=== PATIENT | female | born 1935 | race Caucasian/White ===

== ENCOUNTER → 2016-07-04 | Outpatient (CLI) | payer MEDICARE, OTHER ==
[~2016-07-04] MED LIST: ALEN70TA47 PO; ASCO500T20 PO; ASP81TEC PO; CHOL10002 PO; CLD600T PO; CYAN100053 IJ; DCS100C PO; DENO60DI SQ; ESTR0.3T PO; NAPR1TAB21 PO; NAPR500T3 PO; OXYC-190 PO; OXYC10TA7 PO; OXYC20TA3 PO; PANT40TA3 PO; PNT40TEC PO; POLY119P PO; SIMV40TA4 PO
--- NOTE | 2016-07-04 12:57 | Diagnostic Imaging Report ---
INDICATION: Left shoulder pain. EXAM: AP, oblique, and transscapular views of the left shoulder are obtained. FINDINGS: There is no fracture or acute bony abnormality seen. There is marked degenerative changes of the glenohumeral joint. There is degenerative change of the AC joint. There is superior subluxation of the humeral head relative to the glenoid, with minimal distance between the acromion and humeral head. 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 IMPRESSION: Extensive chronic changes, as above. No acute fracture or dislocation. Report given to (Maricel) at 12:56 p.m. 07/04/2016/cb Dictated by: Dictated on workstation # [id number]
== END ==
LOC: RAD 12:03
PROVIDERS: ATTEND Nurse Practitioner Family
DX: M25.512 Pain in left shoulder (principal)
CPT/HCPCS: 73030

== ENCOUNTER → 2016-07-07 | Outpatient (CLI) | payer MEDICARE, OTHER ==
--- NOTE | 2016-07-07 11:20 | Diagnostic Imaging Report ---
INDICATION: Left arm swelling Left arm venous Doppler study performed in the routine fashion with color Doppler and waveform analysis. Left internal jugular vein, left subclavian vein, and left axillary vein are patent and compressible. The left brachial and basilic vein and cephalic vein are patent. The visualized portions of the radial and ulnar veins are patent. There is a fluid collection anterior to the shoulder measuring about 5.2 x 3.0 x 3.0 cm. This collection is nonspecific. This could be aspirated under ultrasound guidance if clinically warranted for diagnostic purposes. IMPRESSION: No evidence of deep vein thrombosis in the major veins of the left upper extremity. There is a fluid collection anterior to the shoulder joint as above. This could be aspirated under ultrasound guidance for diagnostic purposes if clinically warranted. Dictated by: Dictated on workstation # [id number]
== END ==
LOC: RAD 09:55
PROVIDERS: ATTEND Nurse Practitioner Family
DX: R22.32 Localized swelling, mass and lump, left upper limb (principal); Z86.718 Personal history of other venous thrombosis and embolism

== ENCOUNTER 2016-07-28 08:18 | Emergency (ER) | payer MEDICARE, OTHER ==
[~2016-07-28] VITALS: Ht 167.6 cm; Wt 65.8 kg
[2016-07-28] MEDS ORDERED: OXYC30TA80 PO (08:47)
[2016-07-28 09:06] LABS: BASOPHILS % (AUTO) 1 % (0-10); EOSINOPHILS % (AUTO) 0 % (0-10); LYMPHOCYTES # (AUTO) 1.1 X 10^3 (1.0-4.0); LYMPHOCYTES % (AUTO) 13 % (12-44); MEAN CORPUSCULAR HEMOGLOBIN 29 PG (25-34); MEAN CORPUSCULAR HGB CONC 32 G/DL (32-36); MEAN CORPUSCULAR VOLUME 91 FL (80-99); MEAN PLATELET VOLUME 8.6 FL (7.4-10.4); MONOCYTES # (AUTO) 0.7 X 10^3 (0.0-1.0); MONOCYTES % (AUTO) 9 % (0-12); NEUTROPHILS # (AUTO) 6.6 X 10^3 (1.8-7.8); NEUTROPHILS % (AUTO) 78 % (42-75); PLATELET COUNT 398 10^3/uL (130-400); RED BLOOD COUNT 3.56 10^6/uL (4.35-5.85); WHITE BLOOD COUNT 8.4 10^3/uL (4.3-11.0)
[2016-07-28 09:17] LABS: INR 0.9 (0.8-1.4); PROTHROMBIN TIME PATIENT 12.2 SEC (12.2-14.7)
[2016-07-28 09:28] LABS: ALANINE AMINOTRANSFERASE 13 U/L (0-55); ALBUMIN 2.8 G/DL (3.2-4.5); ANION GAP 9 MMOL/L (5-14); ASPARTATE AMINO TRANSFERASE 19 U/L (5-34); BILIRUBIN,TOTAL 0.3 MG/DL (0.1-1.0); BLOOD UREA NITROGEN 19 MG/DL (7-18); BUN/CREATININE RATIO 21; CALCIUM 8.6 MG/DL (8.5-10.1); CARBON DIOXIDE 28 MMOL/L (21-32); CHLORIDE 99 MMOL/L (98-107); CREATININE SERUM 0.89 MG/DL (0.60-1.30); GFR ESTIMATED > 60; GLUCOSE 112 MG/DL (70-105); MAGNESIUM 1.6 MG/DL (1.8-2.4); SODIUM 136 MMOL/L (135-145); TOTAL PROTEIN 5.8 G/DL (6.4-8.2)
[2016-07-28] MEDS ORDERED: NS IV 1000 ML 1,000 ML IV ONE (09:51)
--- NOTE | 2016-07-28 10:14 | ED General ---
General Chief Complaint: General Problems/Pain Stated Complaint: WEAKNESS, DIZZINESS, BODY ACHES Nursing Triage Note: TO ROOM 05 WITH COMPLAINTS OF CHRONIC GENERALIZED WEAKNESS, DIZZINESS, AND OVERALL PAIN THAT HAS BECAME WORSE OVER NIGHT. STATES SHE HAS SEEN DR SILVA MULTIPLE TIMES FOR THIS AND HAS BEEN TOLD IT IS RELATED FIBROMYALGIA AND OSTEO ARTHRITIS. PT HAS A BRUISE ON LEFT SHOULDER SHE WANTS LOOKED AT THAT HAS BEEN THERE FOR A COUPLE OF DAYS. PT IS WEARING A SOFT NECK BRACE DUE TO CHRONIC CERVICAL ISSUES. Nursing Sepsis Screen: No Definite Risk Source of Information: Patient, Family Exam Limitations: No Limitations History of Present Illness Time Seen by Provider: 08:38 Initial Comments This 80 year old woman presents to the ER accompanied by her daughter with complaints of worsening generalized weakness and dizziness upon standing. Symptoms have been present for months but have been worse over the last couple of days. She reports feeling lightheaded upon rising every morning. Symptoms seemed to improve as the day goes on. She also complains of significant generalized pain throughout the body despite taking regular narcotics. She also has problems with chronic cervical pain and wears a soft collar continuously. She states she needs cervical surgery but is not a good candidate. She has seen Dr. Blancas in [place] for neurosurgical evaluation. Patient feels she is at risk for falls even while using a walker because of these issues. Patient has areas of ecchymosis behind the left elbow and behind the right knee without good explanation about how they may have developed. Allergies and Home Medications Allergies Coded Allergies: Penicillins (Verified Allergy, Unknown, 08/11/12) Sulfa (Sulfonamide Antibiotics) (Unverified Allergy, Unknown, 08/11/12) Home Medications Ascorbic Acid 500 Mg Tablet, 500 MG PO DAILY, (Reported) Aspirin 81 Mg Tabec, 81 MG PO HS, (Reported) Calcium/Vitamin D 600 Mg Tab, 600 MG PO BID, (Reported) Cholecalciferol 1,000 Unit Tab, 1,000 UNIT PO BID, (Reported) Cyanocobalamin 1,000 Mcg/Ml Vial, 1,000 MCG IJ ONCE MONTHLY, (Reported) Denosumab 60 Mg/1 Ml Disp.syrin, Unknown Dose SQ MONTHLY, (Reported) NEXT INJECTION DUE IN JANUARY Docusate Sodium 100 Mg Capsule, 100 MG PO BID, (Reported) Naproxen 500 Mg Tablet, 250 MG PO HS, (Reported) TAKES 1/2 OF A (500 MG) TABLET Naproxen 500 Mg Tablet, 500 MG PO DAILY, (Reported) Nitrofurantoin Monohyd/M-Cryst 100 Mg Capsule, 1 TAB PO BID, #14 Prescribed by: KIKO BAEZ on 07/28/16 1318 Oxycodone HCl 10 Mg Tablet, 10 MG PO Q6H PRN for PAIN, (Reported) ALTERNATING WITH OXYCODONE 20 MG EVERY 3 HOURS Oxycodone HCl 30 Mg Tablet, 30 MG PO QID, (Reported) Pantoprazole Sodium 40 Mg Tablet.dr, 40 MG PO DAILY, (Reported) Constitutional: see HPI EENTM: no symptoms reported Respiratory: no symptoms reported Cardiovascular: no symptoms reported Gastrointestinal: other (chronic abdominal discomfort, unchanged) Genitourinary: no symptoms reported : No Musculoskeletal: see HPI Skin: no symptoms reported Psychiatric/Neurological: See HPI Hematologic/Lymphatic: See HPI Immunological/Allergic: no symptoms reported Past Cfafwmz-Cccxoc-Faejyz Hx Patient Social History Alcohol Use: Occasionally Uses Recreational Drug Use: No Smoking Status: Former Smoker Type Used: Cigarettes Former Smoker/When Quit: Aug 11, 1949 Recent Foreign Travel: No Contact w/Someone Who Travel: No Recent Infectious Disease Expo: No Recent Hopitalizations: No Immunizations Up To Date Tetanus Booster (TDap): Unknown PED Vaccines UTD: Yes Date of Pneumonia Vaccine: Mar 02, 2014 Date of Influenza Vaccine: Nov 26, 2015 Seasonal Allergies Seasonal Allergies: No Surgeries HX Surgeries: Yes (6 back (rods) and 2 total knees, 4 alt. 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 Genitourinary Hx Genitourinary Disorders: No Gastrointestinal Hx Gastrointestinal Disorders: Yes (irritable bowel syndrome) Gastrointestinal Disorders: Gastroesophageal Reflux, Obstructive Bowel ( partial small bowel obstruction), Irritable Bowel Musculoskeletal Hx Musculoskeletal Disorders: Yes (many back and knee surgeries, osteo arthritis) Musculoskeletal Disorders: Degenerate Disk Disease, Arthritis, Fibromyalgia, Chronic Back Pain Endocrine Hx Endocrine Disorders: No HEENT HX ENT Disorders: Yes (cataracts removed) HEENT Disorders: Cataract Loss of Vision: Bilateral Hearing Impairment: Denies Cancer Hx Cancer: No Psychosocial Hx Psychiatric Problems: No Integumentary HX Skin/Integumentary Disorder: No Blood Transfusions Hx Blood Disorders: Yes (hx of anemia) Adverse Reaction to a Blood Tr: No Family Medical History Significant Family History: Heart Disease, Hypertension Physical Exam Vital Signs Vital Sign - Last 12Hours 07/28/16 08:30 Temp 98.7 Pulse 99 Resp 16 B/P (MAP) 122/76 Pulse Ox 97 Capillary Refill : Less Than 3 Seconds General Appearance: No Apparent Distress, WD/WN HEENT: PERRL/EOMI, Normal ENT Inspection Neck: Normal Inspection, No Carotid Bruit, Other (soft collar in place) Respiratory: Lungs Clear, Normal Breath Sounds, No Accessory Muscle Use, No Respiratory Distress Cardiovascular: Regular Rate, Rhythm, No Edema, No Murmur Gastrointestinal: Normal Bowel Sounds, Soft, Tenderness (minimal central abdominal tenderness) Extremity: Normal Inspection, No Pedal Edema Neurologic/Psychiatric: Alert, Oriented x3, No Motor/Sensory Deficits, Normal Mood/Affect, tassel snipper II-XII Norm as Tested Skin: Normal Color, Warm/Dry Progress/Results/Core Measures Results/Orders Lab Results Laboratory Tests Test 07/28/16 08:56 07/28/16 11:22 Range/Units White Blood Count 8.4 4.3-11.0 10^3/uL Red Blood Count 3.56 L 4.35-5.85 10^6/uL Hemoglobin 10.3 L 11.5-16.0 G/DL Hematocrit 32 L 35-52 % Mean Corpuscular Volume 91 80-99 FL Mean Corpuscular Hemoglobin 29 25-34 PG Mean Corpuscular Hemoglobin Concent 32 32-36 G/DL Red Cell Distribution Width 16.0 H 10.0-14.5 % Platelet Count 398 130-400 10^3/uL Mean Platelet Volume 8.6 7.4-10.4 FL Neutrophils (%) (Auto) 78 H 42-75 % Lymphocytes (%) (Auto) 13 12-44 % Monocytes (%) (Auto) 9 0-12 % Eosinophils (%) (Auto) 0 0-10 % Basophils (%) (Auto) 1 0-10 % Neutrophils # (Auto) 6.6 1.8-7.8 X 10^3 Lymphocytes # (Auto) 1.1 1.0-4.0 X 10^3 Monocytes # (Auto) 0.7 0.0-1.0 X 10^3 Eosinophils # (Auto) 0.0 0.0-0.3 10^3/uL Basophils # (Auto) 0.0 0.0-0.1 10^3/uL Prothrombin Time 12.2 12.2-14.7 SEC INR Comment 0.9 0.8-1.4 Activated Partial Thromboplast Time 28 24-35 SEC Sodium Level 136 135-145 MMOL/L Potassium Level 4.0 3.6-5.0 MMOL/L Chloride Level 99 98-107 MMOL/L Carbon Dioxide Level 28 21-32 MMOL/L Anion Gap 9 5-14 MMOL/L Blood Urea Nitrogen 19 H 7-18 MG/DL Creatinine 0.89 0.60-1.30 MG/DL Estimat Glomerular Filtration Rate > 60 BUN/Creatinine Ratio 21 Glucose Level 112 H 70-105 MG/DL Calcium Level 8.6 8.5-10.1 MG/DL Magnesium Level 1.6 L 1.8-2.4 MG/DL Total Bilirubin 0.3 0.1-1.0 MG/DL Aspartate Amino Transf (AST/SGOT) 19 5-34 U/L Alanine Aminotransferase (ALT/SGPT) 13 0-55 U/L Alkaline Phosphatase 61 40-136 U/L Total Creatine Kinase 24 L 29-168 U/L Total Protein 5.8 L 6.4-8.2 G/DL Albumin 2.8 L 3.2-4.5 G/DL TSH [place] Testing 2.57 0.35-4.94 UIU/ML Urine Color YELLOW Urine Clarity CLEAR Urine pH 5 5-9 Urine Specific [place] 1.020 1.016-1.022 Urine Protein 1+ H NEGATIVE Urine Glucose (UA) NEGATIVE NEGATIVE Urine Ketones 1+ H NEGATIVE Urine Nitrite NEGATIVE NEGATIVE Urine Bilirubin NEGATIVE NEGATIVE Urine Urobilinogen 1 NORMAL MG/DL Urine Leukocyte Esterase 1+ H NEGATIVE Urine RBC (Auto) NEGATIVE NEGATIVE Urine RBC NONE /HPF Urine WBC 5-10 H /HPF Urine Squamous Epithelial Cells NONE /HPF Urine Crystals NONE /LPF Urine Bacteria MODERATE H /HPF Urine Casts NONE /LPF Urine Mucus LARGE H /LPF Urine Culture Indicated YES Micro Results Microbiology 07/28/16 Urine Culture - Preliminary, Resulted My Orders Orders - KIKO FLORES MD Cbc With Automated Diff (07/28/16 08:38) Comprehensive Metabolic Panel (07/28/16 08:38) Magnesium (07/28/16 08:38) Ua Culture If Indicated (07/28/16 08:38) Saline Lock/Iv-Start (07/28/16 08:38) Protime With Inr (07/28/16 08:52) Partial Thromboplastin Time (07/28/16 08:52) Thyroid Analyzer (07/28/16 08:52) Creatine Kinase (07/28/16 09:49) Ns Iv 1000 Ml (Sodium Chloride 0.9%) (07/28/16 09:51) General/Regular (07/28/16 Breakfast) Urine Culture (07/28/16 11:22) Nitrofurantoin Capsule,Macro (Macrobid C (07/28/16 13:15) Medications Given in ED Vital Signs/I&O Blood Pressure Mean: 91 Progress Note : Progress Note Orthostatic blood pressures during my evaluation were as follows: Lying 120/70, heart rate 89 Sitting 147/90, heart rate 92 Standing 104/74, heart rate 116 Patient had significant orthostatic response. A liter of IV fluids was administered. Patient did report improvement in symptoms after that. Labs were relatively unremarkable. UA demonstrated evidence of urinary tract infection. Patient believes she is presently on an antibiotic for bladder infection but is uncertain of which antibiotic it is. She reports it was given to her as a sample from Dr. Silva's office. I suspect her symptoms are, at least in part, related to UTI and hypovolemia. Patient does admit she does not drink clear liquids well. I advised follow-up with Dr. Silva and discussion about carotid artery ultrasonography if increased hydration and treatment of UTI do not improve her symptoms. Patient was given her first dose of Macrobid in the ER. Departure Impression Impression: Primary Impression: Urinary tract infection Qualified Codes: N39.0 - Urinary tract infection, site not specified Additional Impressions: Orthostatic hypotension Hypovolemia Dizziness Generalized weakness Disposition: 01 HOME, SELF-CARE Condition: Improved Departure-Patient Inst. Decision time for Depature: 13:15 Referrals: WOODY SILVA MD (PCP/Family) Primary Care Physician Patient Instructions: Urinary Tract Infection, Adult (DC) Add. Discharge Instructions: Increase your fluid intake by drinking plenty of clear liquids. Complete your antibiotic as prescribed. Follow-up with Dr. Silva in 2 or 3 days. Have her review your urine culture to ensure you are taking an antibiotic appropriate for your bladder infection. Please be aware that your antibiotic may cause your urine to have an orange-pancho or reddish color. If increased hydration and treatment of bladder infection do not improve your dizziness, discuss obtaining a carotid artery ultrasound with Dr. Silva. Also consider discussing enrollment in physical therapy to maintain strength and coordination. Continue to use your walker when ambulating for safety. Return to the ER if symptoms worsen. All discharge instructions reviewed with patient and/or family. Voiced understanding. Scripts Nitrofurantoin Monohyd/M-Cryst (Macrobid 100 mg Capsule) 100 Mg Capsule 1 TAB PO BID, #14 CAP Prov: KIKO FLORES MD 07/28/16 Copy Copies To 1: WOODY SILVA MD, JOSHUA T MD July 28, 2016 10:14
[2016-07-28 11:30] LABS: BILIRUBIN,URINE NEGATIVE (NEGATIVE); KETONES,URINE 1+ (NEGATIVE); LEUKOCYTE ESTERASE ,URINE 1+ (NEGATIVE); NITRITE,URINE NEGATIVE (NEGATIVE); PH,URINE 5 (5-9); PROTEIN,URINE 1+ (NEGATIVE); UROBILINOGEN,URINE 1 MG/DL (NORMAL)
[2016-07-28] MEDS ORDERED: NITROFURANTOIN 100 MG (MACROBID) CAPSULE PO ONE (13:15)
[2016-07-28] MEDS ORDERED: NITR-65 PO (13:18)
[2016-07-28 13:27] VITALS: BP 141/72
== END 2016-07-28 13:27 | disposition home or self-care (01) ==
LOC: EDUNIT# 08:18 → ER 08:19
DX: N39.0 Urinary tract infection, site not specified (principal); I95.1 Orthostatic hypotension; E86.9 Volume depletion, unspecified; R42 Dizziness and giddiness; R53.1 Weakness; Z79.82 Long term (current) use of aspirin; Z79.899 Other long term (current) drug therapy; Z79.891 Long term (current) use of opiate analgesic; Z87.891 Personal history of nicotine dependence
CPT/HCPCS: 36415; 80053; 81000; 82550; 83735; 84443; 85025; 85610; 85730; 87088

== ENCOUNTER → 2016-08-18 | Outpatient (CLI) | payer MEDICARE, OTHER ==
[~2016-08-18] VITALS: Ht 167.6 cm; Wt 65.8 kg
[~2016-08-18] MED LIST changes: +DENOSUMAB 60 MG/1 ML (PROLIA) SQ ONE; +NITR-65 PO; +OXYC30TA80 PO
[2016-08-18 13:30] VITALS: BP 135/82
== END ==
LOC: SDC 13:02
PROVIDERS: ATTEND Family Medicine
DX: M81.0 Age-related osteoporosis without current pathological fracture (principal)
CPT/HCPCS: 96372

== ENCOUNTER 2016-09-05 12:39 | Outpatient (RCR) | payer MEDICARE, OTHER ==
[2016-08-27] VITALS (7 sets, daily range): BP systolic 134–167; BP diastolic 70–84
[2016-08-27] MEDS: diphenhydrAMINE 50 MG/ML INJ (BENADRYL) IVP SCH (14:34)
[2016-08-27] MEDS: ACETAMINOPHEN 325 MG TABLET/CAPLET (TYLENOL) PO SCH (14:35)
[2016-08-29] MEDS: diphenhydrAMINE 50 MG/ML INJ (BENADRYL) IVP SCH (13:08)
[2016-08-29] MEDS: ACETAMINOPHEN 325 MG TABLET/CAPLET (TYLENOL) PO SCH (13:08)
[2016-08-29] MEDS: IRON SUCROSE 250 MG/NS 100 ML IVPB IV SCH ×2 (13:19)
[2016-08-29 13:53] VITALS: BP 147/87
[2016-09-01] MEDS: ACETAMINOPHEN 325 MG TABLET/CAPLET (TYLENOL) PO SCH (13:20)
[2016-09-01] MEDS: diphenhydrAMINE 50 MG/ML INJ (BENADRYL) IVP SCH (13:34)
[2016-09-01] MEDS: IRON SUCROSE 250 MG/NS 100 ML IVPB IV SCH ×2 (13:35)
[2016-09-01 14:19] VITALS: BP 148/77
[2016-09-03 12:45] VITALS: BP 127/70
[2016-09-03] MEDS: diphenhydrAMINE 50 MG/ML INJ (BENADRYL) IVP SCH (13:07)
[2016-09-03] MEDS: IRON SUCROSE 250 MG/NS 100 ML IVPB IV SCH ×2 (13:07)
[2016-09-03] MEDS: ACETAMINOPHEN 325 MG TABLET/CAPLET (TYLENOL) PO SCH (13:07)
[~2016-09-05] VITALS: Ht 167.6 cm; Wt 65.8 kg
[~2016-09-05 12:39] MED LIST changes: -DENOSUMAB 60 MG/1 ML (PROLIA) SQ ONE; +IRON SUCROSE INJECTION 125 MG in NS (IVPB) 100 ML IV NR; +NS IV 500 ML 500 ML ONE
[2016-09-05] MEDS: ACETAMINOPHEN 325 MG TABLET/CAPLET (TYLENOL) PO SCH (12:53)
[2016-09-05] MEDS: diphenhydrAMINE 50 MG/ML INJ (BENADRYL) IVP SCH (13:05)
[2016-09-05] MEDS: IRON SUCROSE 250 MG/NS 100 ML IVPB IV SCH ×2 (13:10)
[2016-09-05 13:48] VITALS: BP 142/84
[2016-09-15] MEDS ORDERED: NF-SOLIF5T PO (00:02)
[2016-09-15] MEDS ORDERED: CYCL5TAB PO (00:02)
[2016-09-15] MEDS ORDERED: PRED10TA22 (00:02)
[2016-09-15] MEDS ORDERED: FURO20TA4 PO (09:27)
[2016-09-15] MEDS ORDERED: POTA10CA43 PO (09:27)
[2016-09-15] MEDS ORDERED: POLY17PO6 PO (09:28)
[2016-09-19] MEDS ORDERED: PANT40TA3 PO (09:10)
[2016-09-19] MEDS ORDERED: SUCR1TAB PO (09:10)
[2016-09-29] MEDS ORDERED: FENT1PAT9 TOP (19:10)
== END 2016-11-25 | disposition home or self-care (01) ==
LOC: SDC 12:39
PROVIDERS: ATTEND Family Medicine
DX: D64.9 Anemia, unspecified (principal)
CPT/HCPCS: 36415; 36430; 86850; 86900; 86901; 86920; 96365; 96374

== ENCOUNTER 2016-09-14 23:51 | Inpatient (IN) | payer MEDICARE, OTHER ==
[~2016-09-14] VITALS: Ht 170.2 cm; Wt 67.3 kg
[~2016-09-14 23:51] MED LIST changes: -IRON SUCROSE INJECTION 125 MG in NS (IVPB) 100 ML IV NR; -NS IV 500 ML 500 ML ONE
[2016-09-15] VITALS (11 sets, daily range): BP systolic 111–138; BP diastolic 54–82
[2016-09-15] MEDS ORDERED: CYCL5TAB PO (00:02)
[2016-09-15] MEDS ORDERED: PRED10TA22 (00:02)
[2016-09-15] MEDS ORDERED: NF-SOLIF5T PO (00:02)
[2016-09-15 00:38] LABS: BASOPHILS % (AUTO) 0 % (0-10); EOSINOPHILS % (AUTO) 0 % (0-10); LYMPHOCYTES # (AUTO) 1.5 X 10^3 (1.0-4.0); LYMPHOCYTES % (AUTO) 12 % (12-44); MEAN CORPUSCULAR HEMOGLOBIN 29 PG (25-34); MEAN CORPUSCULAR HGB CONC 33 G/DL (32-36); MEAN CORPUSCULAR VOLUME 89 FL (80-99); MEAN PLATELET VOLUME 8.7 FL (7.4-10.4); MONOCYTES # (AUTO) 1.3 X 10^3 (0.0-1.0); MONOCYTES % (AUTO) 11 % (0-12); NEUTROPHILS # (AUTO) 9.6 X 10^3 (1.8-7.8); NEUTROPHILS % (AUTO) 77 % (42-75); PLATELET COUNT 357 10^3/uL (130-400); WHITE BLOOD COUNT 12.5 10^3/uL (4.3-11.0)
[2016-09-15 00:47] LABS: PROTHROMBIN TIME PATIENT 12.9 SEC (12.2-14.7)
[2016-09-15 00:56] LABS: BILIRUBIN,TOTAL 0.4 MG/DL (0.1-1.0); CALCIUM 8.1 MG/DL (8.5-10.1); CREATININE SERUM 1.08 MG/DL (0.60-1.30); POTASSIUM 4.3 MMOL/L (3.6-5.0); TOTAL PROTEIN 5.6 GM/DL (6.4-8.2)
[2016-09-15] MEDS ORDERED: NS IV 1000 ML 1,000 ML IV ONE (02:36)
[2016-09-15] MEDS ORDERED: KETOROLAC 30 MG/ML VIAL IVP STA (02:36)
[2016-09-15] MEDS ORDERED: ORPHENADRINE 60 MG/2 ML (NORFLEX) AMP IV ONE (02:45)
[2016-09-15] MEDS ORDERED: ORPHENADRINE 60 MG/2 ML (NORFLEX) AMP IV PRN (03:45)
[2016-09-15] MEDS ORDERED: CALCIUM CARBONATE 600 MG (CALCARB) TAB PO ONE (03:45)
[2016-09-15] MEDS: NS IV 1000 ML 1,000 ML IV SCH ×3 (04:08→21:25)
[2016-09-15] MEDS: fentaNYL INJECTION 100 MCG/2 ML AMP IV PRN ×6 (04:16→18:03)
--- NOTE | 2016-09-15 05:36 | ED Lower Extremity ---
General Chief Complaint: Lower Extremity Stated Complaint: INTRACTABLE R LEG PAIN; HYPONATREMIA; ANEMIA Nursing Triage Note: SHARP PAIN FROM RIGHT BUTTOCKS RADIATING DOWN RIGHT LEG. PT REPORTS BEING TREATED FOR SCIATICA ET. RECIEVING "SHOTS" THURSDAY FOR SAME PAIN. Nursing Sepsis Screen: No Definite Risk Source: patient History of Present Illness Time seen by provider: 00:10 Initial Comments PT ARRIVES VIA EMS FROM HOME C/O SEVERE RIGHT LEG PAIN AND LEG FEELS HARD AND SWOLLEN--PAIN FROM RIGHT HIP/ BUTTOCKS AREA DOWN TO LOWER LEG ALSO HAS MILDER SYMPTOMS NO THE LEFT PT STATES SHE CANNOT WALK DUE TO SEVERE PAIN HAS NOT TAKEN ANYTHING FOR PAIN NO KNOWN INJURY PT STATES SHE HAS CHRONIC BACK PAIN AND HAS HAD 6 BACK SURGERIES WITH RODS, AND HAS HAD ISSUES WITH RIGHT SIDED SCIATICA. HAD STEROID SHOT IN THE RIGHT HIP/BUTTOCK AREA 1 MONTH AGO, AND ANOTHER ONE Thursday09/12/[address] CARBONE'S OFFICE NO NEW PARESTHESIAS OR MOTOR DEFICITS--PT STATES SHE HAS FIBROMYALGIA AND HER FEET ARE ALWAYS TINGLY, AND THIS IS NO DIFFERENT TODAY NO CHEST PAIN NO SHORTNESS OF BREATH NO PALPITATIONS NO DIZZINESS PT ALSO SAW DR. CARBONE A WEEK AGO FOR ONGOING RIGHT SHOULDER PAIN, AND HAD BLOODY FLUID DRAINED FROM IT. PT WAS GIVEN RX FOR PREDNISONE, AND TOOK THE LAST DOSE TODAY PT ALSO STATES SHE HAD A BLOOD TRANSFUSION A COUPLE OF WEEKS AGO, ALONG WITH AN IRON INFUSION FOR ANEMIA ALSO RECENTLY TREATED FOR UTI, AND HAS HAD MUCH DIFFICULTY SLEEPING DUE TO BEING UP ALL NIGHT URINATING EVERY 15-20 MINUTES PCP: DR. CARBONE Allergies and Home Medications Allergies Coded Allergies: Penicillins (Verified Allergy, Unknown, 08/11/12) Sulfa (Sulfonamide Antibiotics) (Unverified Allergy, Unknown, 08/11/12) Home Medications Ascorbic Acid 500 Mg Tablet, 500 MG PO DAILY, (Reported) Aspirin 81 Mg Tabec, 81 MG PO HS, (Reported) Calcium/Vitamin D 600 Mg Tab, 600 MG PO BID, (Reported) Cholecalciferol 1,000 Unit Tab, 1,000 UNIT PO BID, (Reported) Cyanocobalamin 1,000 Mcg/Ml Vial, 1,000 MCG IJ ONCE MONTHLY, (Reported) Cyclobenzaprine HCl 5 Mg Tablet, #15 (Reported) Denosumab 60 Mg/1 Ml Disp.syrin, Unknown Dose SQ MONTHLY, (Reported) NEXT INJECTION DUE IN JANUARY Docusate Sodium 100 Mg Capsule, 100 MG PO BID, (Reported) Naproxen 500 Mg Tablet, 250 MG PO HS, (Reported) TAKES 1/2 OF A (500 MG) TABLET Naproxen 500 Mg Tablet, 500 MG PO DAILY, (Reported) Nitrofurantoin Monohyd/M-Cryst 100 Mg Capsule, 1 TAB PO BID, #14 Prescribed by: KIKO BAEZ on 07/28/16 1318 Oxycodone HCl 10 Mg Tablet, 10 MG PO Q6H PRN for PAIN, (Reported) ALTERNATING WITH OXYCODONE 20 MG EVERY 3 HOURS Oxycodone HCl 30 Mg Tablet, 30 MG PO QID, (Reported) Pantoprazole Sodium 40 Mg Tablet.dr, 40 MG PO DAILY, (Reported) Prednisone 10 Mg Tab.ds.pk, #21 (Reported) Solifenacin Succinate 5 Mg Tablet, #30 (Reported) Constitutional: no symptoms reported Respiratory: no symptoms reported Cardiovascular: no symptoms reported Gastrointestinal: no symptoms reported Genitourinary: see HPI Musculoskeletal: see HPI Skin: no symptoms reported Psychiatric/Neurological: See HPI Past Ljzqpyf-Llsgql-Vxiule Hx Patient Social History Alcohol Use: Occasionally Uses Recreational Drug Use: No Smoking Status: Former Smoker Type Used: Cigarettes Former Smoker/When Quit: Aug 11, 1949 Recent Foreign Travel: No Contact w/Someone Who Travel: No Recent Infectious Disease Expo: No Recent Hopitalizations: No Physical Abuse Screen: No Sexual Abuse: No Immunizations Up To Date Tetanus Booster (TDap): Unknown PED Vaccines UTD: Yes Date of Pneumonia Vaccine: Mar 02, 2014 Date of Influenza Vaccine: Nov 26, 2015 Seasonal Allergies Seasonal Allergies: No Surgeries HX Surgeries: Yes (RIGHT TOTAL KNEE REPLACEMENT; 6 BACK SURGERIES WITH NOEMY PLACEMENT) Surgeries: Appendectomy, Breast, Eye Surgery, Joint Replacement, Orthopedic Respiratory Hx Respiratory Disorders: No Cardiovascular Hx Cardiac Disorders: Yes Cardiac Disorders: High Cholesterol Neurological Hx Neurological Disorders: Yes Neurological Disorders: Neuropathy, Spinal Cord Injury Reproductive System : No Hx Reproductive Disorders: No HIV/AIDS: No 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 Genitourinary Hx Genitourinary Disorders: Yes Genitourinary Disorders: Bladder Infection Gastrointestinal Hx Gastrointestinal Disorders: Yes (irritable bowel syndrome) Gastrointestinal Disorders: Gastroesophageal Reflux, Obstructive Bowel, Irritable Bowel Musculoskeletal Hx Musculoskeletal Disorders: Yes (many back and knee surgeries, osteo arthritis) Musculoskeletal Disorders: Degenerate Disk Disease, Arthritis, Fibromyalgia, Chronic Back Pain, Fractures Endocrine Hx Endocrine Disorders: No HEENT HX ENT Disorders: Yes (cataracts removed) HEENT Disorders: Cataract Loss of Vision: Denies Hearing Impairment: Hard of Hearing Cancer Hx Cancer: No Psychosocial Hx Psychiatric Problems: No Integumentary HX Skin/Integumentary Disorder: No Blood Transfusions Hx Blood Disorders: Yes (hx of anemia) Hx of Blood Transfusion YES Adverse Reaction to a Blood Tr: No Family Medical History Significant Family History: Heart Disease, Hypertension Physical Exam Vital Signs Vital Sign - Last 12Hours 09/15/16 00:02 Temp 97.7 Pulse 113 Resp 18 B/P (MAP) 96/61 Pulse Ox 100 O2 Delivery Room Air Capillary Refill : Less Than 3 Seconds General Appearance: WD/WN, other (ANXIOUS, HOLDING RIGHT THIGH) Neck: normal inspection Cardiovascular: regular rate, rhythm, no JVD, no murmur Respiratory: normal breath sounds, no respiratory distress, no accessory muscle use Gastrointestinal: non tender, soft Hips: left hip normal inspection, right hip bone tenderness Legs: right leg bone tenderness, right leg soft tissue tenderness, right leg swelling, right leg other (RIGHT THIGH VERY FIRM AND SWOLLEN) Knees: right knee bone tenderness, right knee soft tissue tenderness, bilateral knee other (NO CALF TENDERNESS BILATERALLY. ) Ankles: bilateral ankle other (NO SWELLING ON RIGHT, TRACE TO 1+ SWELLING ON LEFT. ) Feet: bilateral foot normal inspection Neurologic/Tendon: normal sensation, normal motor functions, normal tendon functions Neurologic/Psychiatric: counsel II-XII nml as tested, no motor/sensory deficits, alert, oriented x 3 Skin: normal color, warm/dry Progress/Results/Core Measures Results/Orders Lab Results Laboratory Tests Test 09/15/16 00:31 Range/Units White Blood Count 12.5 H 4.3-11.0 10^3/uL Red Blood Count 3.10 L 4.35-5.85 10^6/uL Hemoglobin 9.1 L 11.5-16.0 G/DL Hematocrit 28 L 35-52 % Mean Corpuscular Volume 89 80-99 FL Mean Corpuscular Hemoglobin 29 25-34 PG Mean Corpuscular Hemoglobin Concent 33 32-36 G/DL Red Cell Distribution Width 17.0 H 10.0-14.5 % Platelet Count 357 130-400 10^3/uL Mean Platelet Volume 8.7 7.4-10.4 FL Neutrophils (%) (Auto) 77 H 42-75 % Lymphocytes (%) (Auto) 12 12-44 % Monocytes (%) (Auto) 11 0-12 % Eosinophils (%) (Auto) 0 0-10 % Basophils (%) (Auto) 0 0-10 % Neutrophils # (Auto) 9.6 H 1.8-7.8 X 10^3 Lymphocytes # (Auto) 1.5 1.0-4.0 X 10^3 Monocytes # (Auto) 1.3 H 0.0-1.0 X 10^3 Eosinophils # (Auto) 0.0 0.0-0.3 10^3/uL Basophils # (Auto) 0.0 0.0-0.1 10^3/uL Prothrombin Time 12.9 12.2-14.7 SEC INR Comment 1.0 0.8-1.4 Activated Partial Thromboplast Time 23 L 24-35 SEC Sodium Level 128 L 135-145 MMOL/L Potassium Level 4.3 3.6-5.0 MMOL/L Chloride Level 92 L 98-107 MMOL/L Carbon Dioxide Level 25 21-32 MMOL/L Anion Gap 11 5-14 MMOL/L Blood Urea Nitrogen 23 H 7-18 MG/DL Creatinine 1.08 0.60-1.30 MG/DL Estimat Glomerular Filtration Rate 49 BUN/Creatinine Ratio 21 Glucose Level 109 H 70-105 MG/DL Calcium Level 8.1 L 8.5-10.1 MG/DL Magnesium Level 1.8 1.8-2.4 MG/DL Total Bilirubin 0.4 0.1-1.0 MG/DL Aspartate Amino Transf (AST/SGOT) 17 5-34 U/L Alanine Aminotransferase (ALT/SGPT) 14 0-55 U/L Alkaline Phosphatase 70 40-136 U/L Total Protein 5.6 L 6.4-8.2 GM/DL Albumin 3.0 L 3.2-4.5 GM/DL My Orders Orders - RAJESH SCHWAB DO Us Venous Lower Ext Rt (09/15/16 00:16) Cbc With Automated Diff (09/15/16 00:16) Comprehensive Metabolic Panel (09/15/16 00:16) Protime With Inr (09/15/16 00:16) Partial Thromboplastin Time (09/15/16 00:16) Femur, Right, 2 Views (09/15/16 01:30) Pelvis (09/15/16 01:30) Knee, Right, 3 Views (09/15/16 01:30) Saline Lock/Iv-Start (09/15/16 02:36) Saline Lock/Iv-Start (09/15/16 02:36) Ns Iv 1000 Ml (Sodium Chloride 0.9%) (09/15/16 02:36) Ketorolac Injection (Toradol Injection) (09/15/16 02:36) Orphenadrine Injection (Norflex Injectio (09/15/16 02:45) Magnesium (09/15/16 02:39) Medications Given in ED Current Medications Medications Dose Ordered Sig/Brittany Route Start Time Stop Time Status Last Admin Dose Admin Orphenadrine Citrate 60 mg ONCE ONCE IV 09/15/16 02:45 09/15/16 02:46 DC 09/15/16 02:46 60 MG Sodium Chloride 1,000 ml @ 0 mls/hr Q0M ONCE IV 09/15/16 02:36 09/15/16 02:38 DC 09/15/16 02:46 0 MLS/HR Vital Signs/I&O Vital Sign - Last 12Hours 09/15/16 00:02 Temp 97.7 Pulse 113 Resp 18 B/P (MAP) 96/61 Pulse Ox 100 O2 Delivery Room Air Blood Pressure Mean: 100 Progress Note : Progress Note STILL WITH SIGNIFICANT PAIN AND DOES NOT FEEL LIKE SHE CAN FUNCTION AT HOME BY HERSELF AT THIS POINT Diagnostic Imaging Comments XRAYS PELVIS/RIGHT FEMUR/RIGHT KNEE--NO ACUTE PROCESS, PENDING RADIOLOGIST REVIEW VENOUS DOPPLER/ULTRASOUND RIGHT LEG--NO DVT, PER [facility] VIA FAX @ [id number] Reviewed: Reviewed by Me Departure Communication Progress Notes [id number]--SPOKE WITH DR. COLLINS, ACCEPTS PT FOR ADMIT Impression Impression: Primary Impression: INTRACTABLE RIGHT LEG PAIN Additional Impressions: Hyponatremia Anemia Disposition: ADMITTED INPATIENT Condition: Improved Decision to Admit Reason: Admit from ER (General) Decision to Admit/Date: Sep 15, 2016 Time/Decision to Admit Time: 02:55 Departure-Patient Inst. Referrals: WOODY CARBONE MD (PCP) Primary Care Physician RAJESH SCHWAB DO Sep 15, 2016 05:35
[2016-09-15] MEDS: MULTIVIT W/MINERALS TAB (THERAGRAN M) PO SCH (06:15)
--- NOTE | 2016-09-15 06:37 | Diagnostic Imaging Report ---
INDICATION: Right leg pain. FINDINGS: AP and lateral views of the right femur are obtained including the lateral view of the right knee. Degenerative changes are noted at the right hip joint with total right knee arthroplasty. There is focal cortical offset involving the lateral femoral condylar remnant which may represent an avulsion fracture. No other fracture or malalignment is seen. IMPRESSION: Possible nondisplaced fracture involving the lateral condylar remnant of the distal femur. Otherwise, no acute abnormality is seen. Dictated by: Dictated on workstation # [id number]
--- NOTE | 2016-09-15 06:40 | Diagnostic Imaging Report ---
INDICATION: Right knee pain. FINDINGS: AP and oblique views of the right knee reveal total knee arthroplasty device to be in good position. There is slight cortical irregularity involving the lateral femoral condyle which may represent nondisplaced fracture. IMPRESSION: Possible nondisplaced fracture involving the lateral femoral condylar remnant. There is no evidence of dislocation. Dictated by: Dictated on workstation # [id number]
--- NOTE | 2016-09-15 06:41 | Diagnostic Imaging Report ---
INDICATION: Pelvic pain. FINDINGS: Single AP view of the pelvis reveals fusion of the lumbar spine with sacral extension. There is degenerative spurring about the hip joints, bilaterally. No lytic or sclerotic lesion is identified. There is no evidence of an acute fracture or orthopedic hardware complication. IMPRESSION: Extensive postoperative changes at the lumbar spine and sacrum. Otherwise, there is no evidence of acute abnormality detected. Dictated by: Dictated on workstation # [id number]
--- NOTE | 2016-09-15 06:45 | Diagnostic Imaging Report ---
PROCEDURE: US right lower extremity venous. TECHNIQUE: Multiple real-time grayscale images were obtained over the right lower extremity in various projections. Additional duplex Doppler and color Doppler images were also obtained. INDICATION: Right leg pain after injury. EXAMINATION: Grayscale and color Doppler evaluation of the deep veins of the right lower extremity were performed with waveform analysis. FINDINGS: Continuous venous flow is present. No intraluminal filling defect is identified. There is normal compressibility and response to augmentation. No abnormal perivascular fluid collection is identified. IMPRESSION: No ultrasound evidence of right lower extremity deep venous thrombosis. Dictated by: Dictated on workstation # [id number]
[2016-09-15] MEDS: KETOROLAC 30 MG/ML VIAL IVP PRN ×2 (08:12→15:01)
--- NOTE | 2016-09-15 08:19 | History & Physicial ---
History of Present Illness History of Present Illness Reason for visit/HPI PT IS AN 81 Y/O FEMALE WHO IS KNOWN TO ME FROM CLINIC. SHE PRESENTED TO THE EMERGENCY DEPARTMENT THIS MORNING WITH SEVERE RIGHT LEG PAIN. SHE REPORTS THAT SHE HAD INJECTIONS ON THURSDAY OF LAST WEEK FOR PAIN IN HER RIGHT LEG - HAS NOT GOTTEN MUCH RELIEF FROM THE INJECTION, BUT THIS MORNING UPON AWAKENING TO GO TO THE RESTROOM SHE HAD SO MUCH PAIN THAT SHE COULD NO LONGER TOLERATE IT AND WAS BROUGHT TO THE HOSPITAL BY HER FAMILY. SHE WAS IN THE OFFICE A WEEK AGO - RECEIVED SHOULDER DRAINAGE DUE TO RIGHT SHOULDER SWELLING - BLOODY DRAINAGE - OF 35ML REMOVED AND STEROID INJECTED INTO THE SHOULDER. SHE FINISHED A ROUND OF ORAL STEROIDS YESTERDAY. Date of Admission Sep 15, 2016 at 02:55 Date Seen by Provider: Sep 15, 2016 Time Seen by Provider: 08:10 I consulted on this patient on 09/15/16 08:10 Attending Physician Woody Silva MD Admitting Physician Woody Silva MD Consult Allergies and Home Medications Allergies Coded Allergies: Penicillins (Verified Allergy, Unknown, 08/11/12) Sulfa (Sulfonamide Antibiotics) (Unverified Allergy, Unknown, 08/11/12) Home Medications Ascorbic Acid 500 Mg Tablet, 500 MG PO DAILY, (Reported) Aspirin 81 Mg Tabec, 81 MG PO HS, (Reported) Calcium/Vitamin D 600 Mg Tab, 600 MG PO BID, (Reported) Cholecalciferol 1,000 Unit Tab, 1,000 UNIT PO BID, (Reported) Cyanocobalamin 1,000 Mcg/Ml Vial, 1,000 MCG IJ ONCE MONTHLY, (Reported) Cyclobenzaprine HCl 5 Mg Tablet, 5 MG PO TID PRN for MUSCLE SPASMS, (Reported) Denosumab 60 Mg/1 Ml Disp.syrin, SQ EVERY 6 MONTHS, (Reported) NEXT INJECTION DUE IN JANUARY Docusate Sodium 100 Mg Capsule, 100 MG PO BID, (Reported) Furosemide 20 Mg Tablet, 20 MG PO DAILY PRN for SWELLING, (Reported) Naproxen 500 Mg Tablet, 250-500 MG PO BID, (Reported) Oxycodone HCl 10 Mg Tablet, 10 MG PO Q6H PRN for BREAKTHROUGH PAIN, (Reported) Oxycodone HCl 30 Mg Tablet, 30 MG PO Q6H PRN for PAIN-SEVERE, (Reported) Pantoprazole Sodium 40 Mg Tablet.dr, 40 MG PO DAILY, (Reported) Polyethylene Glycol 3350 17 Gm Powd.pack, 17 GM PO HS, (Reported) MIXES WITH PRUNE JUICE Potassium Chloride 10 Meq Capsule.er, 10 MEQ PO DAILY PRN for WHEN TAKING FUROSEMIDE, (Reported) Solifenacin Succinate 5 Mg Tablet, 5 MG PO HS, (Reported) Past Rrkjpzd-Eywsvw-Bnrklf Hx Patient Social History Marrital Status: Living Status: LIVES WITH HER DAUGHTER Employed/Student: retired Alcohol Use: Occasionally Uses Recreational Drug Use: No Smoking Status: Former Smoker Former smoker/When Quit: Aug 11, 1949 Type Used: Cigarettes 2nd Hand Smoke Exposure: No Physical Abuse Screen: No Sexual Abuse: No Recent Foreign Travel: No Contact w/other who traveled: No Recent Hopitalizations: No Recent Infectious Disease Expo: No Immunizations Up To Date Tetanus Booster (TDap): Unknown Date of Pneumonia Vaccine: Mar 02, 2014 Date of Influenza Vaccine: Nov 26, 2015 Seasonal Allergies Seasonal Allergies: No Surgeries HX Surgeries: Yes (RIGHT TOTAL KNEE REPLACEMENT; 6 BACK SURGERIES WITH NOEMY PLACEMENT) Surgeries: Appendectomy, Breast, Eye Surgery, Joint Replacement, Orthopedic Respiratory Hx Respiratory Disorders: No Cardiovascular Hx Cardiovascular Disorders: Yes Cardiac Disorders: High Cholesterol Neurological Hx Neurological Disorders: Yes Neurological Disorders: Neuropathy, Spinal Cord Injury Reproductive System : No Hx Reproductive Disorders: No HIV/AIDS: No Female Reproductive Disorders: Denies Genitourinary Hx Genitourinary Disorders: Yes Genitourinary Disorders: Bladder Infection Gastrointestinal Hx Gastrointestinal Disorders: Yes (irritable bowel syndrome) Gastrointestinal Disorders: Gastroesophageal Reflux, Obstructive Bowel, Irritable Bowel Musculoskeletal Hx Musculoskeletal Disorders: Yes (many back and knee surgeries, osteo arthritis) Musculoskeletal Disorders: Degenerate Disk Disease, Arthritis, Fibromyalgia, Chronic Back Pain, Fractures Endocrine Hx Endocrine Disorders: No HEENT HX ENT Disorders: Yes (cataracts removed) HEENT Disorders: Cataract Loss of Vision: Denies Hearing Impairment: Hard of Hearing Cancer Hx Cancer: No Psychosocial Hx Psychiatric Problems: No Integumentary HX Skin/Integumentary Disorder: No Blood Transfusions Hx Blood Disorders: Yes (hx of anemia) Adverse Reaction to a Blood Tr: No Reviewed Nursing Assessment Reviewed/Agree w Nursing PMH: Yes Family Medical History Significant Family History: Heart Disease, Hypertension Constitutional: No chills, No dizziness, No fever, weakness EENTM: No hoarseness, No mouth pain, No throat pain Respiratory: No cough, No dyspnea on exertion, No short of breath Cardiovascular: No chest pain, No edema Gastrointestinal: No abdominal pain, No constipation, No diarrhea Genitourinary: No pain Musculoskeletal: back pain, muscle weakness, other (PAIN LATERAL RIGHT HIP) Skin: No lesions, No rash Psychiatric/Neurological: Weakness Physical Exam Vital Signs Vital Sign - Last 12Hours 09/15/16 00:02 Temp 97.7 Pulse 113 Resp 18 B/P (MAP) 96/61 Pulse Ox 100 O2 Delivery Room Air Capillary Refill : Less Than 3 Seconds General Appearance: No Apparent Distress, WD/WN Eyes: Bilateral Eye EOMI, Bilateral Eye Normal Inspection, Bilateral Eye PERRL HEENT: PERRL/EOMI, Pharynx Normal Respiratory: Chest Non Tender, Lungs Clear, Normal Breath Sounds, No Accessory Muscle Use Cardiovascular: Regular Rate, Rhythm, Other (TRACE EDEMA - LATERAL RIGHT THIGH ) Gastrointestinal: Normal Bowel Sounds, Non Tender, Soft Rectal: Deferred Extremity: Pedal Edema Neurologic/Psychiatric: Alert, Oriented x3, No Motor/Sensory Deficits, Normal Mood/Affect Skin: Warm/Dry Lymphatic: No Adenopathy Assessment/Plan Assessment and Plan BACK PAIN LATERAL RIGHT HIP PAIN SWELLING OF HIP ESOPHAGEAL REFLUX CHRONIC PAIN SYNDROME GENERALIZED WEAKNESS BACK PAIN - RESUME HOME MEDICATIONS - MONITOR SYMPTOMS. LATERAL RIGHT HIP PAIN -SWELLING OF HIP - MONITOR SYMPTOMS - USE VOLTAREN GEL ON HIP ESOPHAGEAL REFLUX - RESTART PPI CHRONIC PAIN SYNDROME - RESTART HOME MEDICATIONS GENERALIZED WEAKNESS - START PHYSICAL THERAPY Problems: Admission Diagnosis BACK PAIN LATERAL RIGHT HIP PAIN SWELLING OF HIP ESOPHAGEAL REFLUX CHRONIC PAIN SYNDROME GENERALIZED WEAKNESS BACK PAIN Clinical Quality Measures DVT/VTE Risk/Contraindication: Risk Factor Score Per Nursin RFS Level Per Nursing on Admit: 4+=Very High WOODY SILVA MD Sep 15, 2016 08:19
[2016-09-15 08:26] LABS: BASOPHILS % (AUTO) 0 % (0-10); EOSINOPHILS % (AUTO) 0 % (0-10); LYMPHOCYTES # (AUTO) 1.7 X 10^3 (1.0-4.0); LYMPHOCYTES % (AUTO) 16 % (12-44); MEAN CORPUSCULAR HEMOGLOBIN 29 PG (25-34); MEAN CORPUSCULAR HGB CONC 32 G/DL (32-36); MEAN CORPUSCULAR VOLUME 90 FL (80-99); MEAN PLATELET VOLUME 8.5 FL (7.4-10.4); MONOCYTES % (AUTO) 10 % (0-12); NEUTROPHILS # (AUTO) 7.9 X 10^3 (1.8-7.8); NEUTROPHILS % (AUTO) 74 % (42-75); PLATELET COUNT 260 10^3/uL (130-400); RED BLOOD COUNT 2.49 10^6/uL (4.35-5.85); RED CELL DISTRIBUTION WIDTH 17.1 % (10.0-14.5); WHITE BLOOD COUNT 10.7 10^3/uL (4.3-11.0)
[2016-09-15 08:45] LABS: ALBUMIN 2.5 GM/DL (3.2-4.5); BILIRUBIN,TOTAL 0.5 MG/DL (0.1-1.0); CALCIUM 7.6 MG/DL (8.5-10.1); CREATININE SERUM 0.94 MG/DL (0.60-1.30); TOTAL PROTEIN 4.5 GM/DL (6.4-8.2)
[2016-09-15] MEDS ORDERED: FURO20TA4 PO (09:27)
[2016-09-15] MEDS ORDERED: POTA10CA43 PO (09:27)
[2016-09-15] MEDS ORDERED: POLY17PO6 PO (09:28)
--- NOTE | 2016-09-15 14:02 | Physical Therapy Evaluation ---
PT Evaluation-General Medical Diagnosis Admission Date Sep 15, 2016 at 02:55 Medical Diagnosis: hyponatremia Onset Date: Sep 15, 2016 Therapy Diagnosis Therapy Diagnosis: debility/weakness Height/Weight Height (Feet): 5 Height (Inches): 7.00 Weight (Pounds): 148 Weight (Ounces): 5.0 Precautions Precautions/Isolations: Fall Prevention, Standard Precautions Weight Bear Status Weight Bearing Restriction: Weight Bearing/Tolerated Location Restriction: LE Bilateral Referral Physician: Ricardo Reason for Referral: Evaluation/Treatment Medical History Pertinent Medical History: Arthritis, HTN, Neuropathy, Smoking Additional Medical History 6 back surgeries (kye placement); right TKR Current History to ED secondary to intractable right LE pain and right shoulder pain with drainage Reviewed History: Yes Social History Home: Multilevel Current Living Status: Other Family Entry Into Home: Level Entry Other Obstacles: has chair lift for stairs Prior/Core FIM Prior Level of Function Functional Noble Measure 0=Not Assessed/NA 4=Minimal Assistance 1=Total Assistance 5=Supervision or Setup 2=Maximal Assistance 6=Modified Noble 3=Moderate Assistance 7=Complete Noble Bed Mobility: 6 Transfers (B,C,W/C) (FIM): 6 Gait: 6 uses FWW PLOF PT Evaluation-Current Subjective Patient reports she is very tired, however, agrees to PT. Pain Numeric Pain Scale: 8 Location: Right, Soft Tissue Location Body Site: Hip (piriformis/gluteal/hamstring region) Pain Description: Ache, Tightness, Sharp Comment: RN issued pain medication Pt/Family Goals decrease right LE pain Objective Patient Orientation: Normal For Age Problem Solving: Good Attachments: IV ROM/Strength ROM Lower Extremities bilateral LE WNL Strenght Lower Extremities right knee flexion/extension 3/5; hip flexion 3-/5; ankle dorsi/plantarflexion 3 -/5 left knee flexion/extension 3/5; hip flexion 3/5; ankle dorsi/plantarflexion 3-/ 5 Integumentary/Posture Integumentary refer to nursing notes Bowel Incontinence: No Bladder Incontinence: No Posture spinal kye (wears back brace due to severe weakness of core/spinal musculature) ; wears cervical collar due to extreme weakness of cervical musculature Neuromuscular (Tone, Coordination, Reflexes) diminished coordination, tone and sensation bilateral LE Sensory Vision: Functional Hearing: Functional Sensation Right Lower Extremit: Impaired Sensation Left Lower Extremity: Impaired Transfers Functional Noble Measure 0=Not Assessed/NA 4=Minimal Assistance 1=Total Assistance 5=Supervision or Setup 2=Maximal Assistance 6=Modified Noble 3=Moderate Assistance 7=Complete [place] Transfers (B, C, W/C) (FIM): 2 Scootin Rollin Supine to/from Sit: 2 Sit to/from Stand: 4 due to extreme weakness and pain, patient requires max assist with bed mobility supine<>sit Gait Mode of Locomotion: Walk Anticipated Mode of Locomotion: Walk Gait (FIM): 1 Distance (FIM): 1=up to 49 ft Distance: 5' Gait Level of Assist: 5 Gait Persons Needed: 1 Gait Assistive Device: FWW Comments/Gait Description slightly unsteady Stairs If not tested on admit;explain did not perform PLOF Balance Sitting Static: Normal Sitting Dynamic: Normal Standing Static: Fair Standing Dynamic: Fair Assessment/Needs 81 y.o. female, will benefit from skilled PT to address functional strength and mobility to improve current LOF and to return to home at maximum LOF. PT to address strength and mobility, as well as, right LE pain as tolerated by patient. Rehab Potential: Good PT Printing Supplies Sales Representative Goals Usp Goals PT Printing Supplies Sales Representative Goals Time Frame: Oct 03, 2016 Transfers (B,C,W/C) (FIM): 6 Gait (FIM): 6 Gait distance (FIM): 3=150 ft Gait Level of Assist: 6 Gait Assistive Device: FWW PT Plan Problem List Problem List: Activity Tolerance, Functional Strength, Balance, Gait, Transfer , Bed Mobility, Other (pain) Treatment/Plan Treatment Plan: Continue Plan of Care Treatment Plan: Bed Mobility, Education, Functional Activity Shamika, Functional Strength, Gait, Safety, Therapeutic Exercise, Transfers Treatment Duration: Oct 03, 2016 Frequency: 6 times per week Estimated Hrs Per Day: .5 hour per day Patient and/or Family Agrees t: Yes Safety Risks/Education Patient Education: Disease Process, Safety Issues Teaching Recipient: Patient Teaching Methods: Discussion Response to Teaching: Verbalize Understanding Discharge Recommendations Therapy D/C Recommendations: Acute Rehab, Home w/ Family Support, Physical Therapy Home Care Time/GCodes Time In: 1310 Time Out: 1335 Total Billed Treatment Time: 25 Total Billed Treatment 1 visit EVLowC 25 min G Codes Necessary: Yes PT/OT Therapy GCodes Therapy Functional Limitation: Physical Therapy Test(s)/Tool used to determine: Level of Assistance Scale Functional Limitation-Current Charge Code: MOBCUR Modifier: CL Functional Limitation-Goal Charge Code: MOBGOAL Modifier: CI JAIMIE GOINS PT Sep 15, 2016 14:02
[2016-09-15] MEDS ORDERED: FUROSEMIDE 20 MG (LASIX) TAB PO PRN (15:30)
[2016-09-15] MEDS ORDERED: NON-FORMULARY MEDICATION 1 EA EA (Oxycodone HCl 30 MG) PO PRN (15:30)
[2016-09-15] MEDS ORDERED: NON-FORMULARY MEDICATION 1 EA EA (Potassium Chloride 10 MEQ) PO PRN (15:30)
[2016-09-15] MEDS ORDERED: NON-FORMULARY MEDICATION 1 EA EA (Cyclobenzaprine HCl 5 MG) PO PRN (15:30)
[2016-09-15] MEDS ORDERED: NS IV 500 ML 500 ML IV SCH (15:50)
[2016-09-15] MEDS ORDERED: KCL 10 MEQ TAB (MICRO K) PO PRN (16:00)
[2016-09-15] MEDS ORDERED: diphenhydrAMINE 50 MG/ML INJ (BENADRYL) IVP PRN (16:00)
[2016-09-15] MEDS ORDERED: FUROSEMIDE 40 MG/4 ML INJ (LASIX) IVP NR (16:00)
[2016-09-15] MEDS ORDERED: ACETAMINOPHEN 325 MG TABLET/CAPLET (TYLENOL) PO PRN (16:00)
[2016-09-15] MEDS ORDERED: CYCLOBENZAPRINE 10 MG (FLEXERIL) TAB PO PRN (16:15)
[2016-09-15 16:57] LABS: BILIRUBIN,URINE NEGATIVE (NEGATIVE); KETONES,URINE NEGATIVE (NEGATIVE); LEUKOCYTE ESTERASE ,URINE 1+ (NEGATIVE); NITRITE,URINE NEGATIVE (NEGATIVE); PH,URINE 5 (5-9); PROTEIN,URINE 1+ (NEGATIVE); UROBILINOGEN,URINE NORMAL (NORMAL)
[2016-09-15] MEDS: CALCIUM CARB + VIT D 600 MG (CALCARB + D) TAB PO SCH (17:15)
[2016-09-15 17:22] LABS: HYALINE CASTS, URINE >50 /LPF; WBC,URINE RARE /HPF
[2016-09-15] MEDS ORDERED: NAPROXEN 250 MG (NAPROSYN) TABLET PO ONE (18:13)
[2016-09-15] MEDS ORDERED: fentaNYL INJECTION 100 MCG/2 ML AMP IVP PRN ×2 (18:15→18:45)
[2016-09-15] MEDS ORDERED: ONDANSETRON 4 MG/2 ML (SDV) Z0FRAN IV PRN (18:45)
[2016-09-15] MEDS ORDERED: NALOXONE 0.4 MG/ML 1 ML (NARCAN) VIAL IV PRN (18:45)
[2016-09-15] MEDS ORDERED: diphenhydrAMINE 50 MG/ML INJ (BENADRYL) IV PRN (18:45)
[2016-09-15] MEDS ORDERED: METOCLOPRAMIDE INJ 10 MG/2 ML (REGLAN) IV PRN (18:45)
[2016-09-15] MEDS: fentaNYL PCA 300 MCG/30 ML VIAL IV PRN (20:32)
[2016-09-15] MEDS: POLYETHYLENE GLYCOL 17 GM (MIRALAX) PACK PO SCH ×2 (20:37→21:26)
[2016-09-15] MEDS ORDERED: NAPROXEN 250 MG (NAPROSYN) TABLET PO SCH (21:00)
[2016-09-15] MEDS ORDERED: SOLIFENACIN 5 MG TAB (VESICARE) NON-FORMULARY PO SCH (21:00)
[2016-09-15] MEDS: DOCUSATE SODIUM 100 MG (COLACE) CAP PO SCH (21:26)
[2016-09-15] MEDS: ASPIRIN E.C. 81 MG (ECOTRIN) TAB PO SCH (21:26)
[2016-09-15] MEDS: VITAMIN D3 1,000 UNITS (CHOLECALCIFEROL) TABLET PO SCH (21:26)
[2016-09-16] VITALS (8 sets, daily range): BP systolic 115–153; BP diastolic 56–86
[2016-09-16] MEDS: fentaNYL PCA 300 MCG/30 ML VIAL IV PRN ×5 (00:46→23:43)
[2016-09-16] MEDS: NS IV 1000 ML 1,000 ML IV SCH ×3 (05:06→21:11)
[2016-09-16] MEDS: MULTIVIT W/MINERALS TAB (THERAGRAN M) PO SCH (06:10)
[2016-09-16] MEDS: PANTOPRAZOLE 40 MG (PROTONIX) TAB PO SCH (06:10)
[2016-09-16] MEDS: NAPROXEN 250 MG (NAPROSYN) TABLET PO SCH ×2 (06:11→16:30)
[2016-09-16] MEDS: CALCIUM CARB + VIT D 600 MG (CALCARB + D) TAB PO SCH ×2 (06:11→16:30)
[2016-09-16] MEDS: TROSPIUM 20 MG (SANCTURA) TAB PO SCH ×2 (06:11→16:30)
[2016-09-16 06:23] LABS: RED BLOOD COUNT 3.28 10^6/uL (4.35-5.85); RED CELL DISTRIBUTION WIDTH 16.3 % (10.0-14.5); WHITE BLOOD COUNT 10.5 10^3/uL (4.3-11.0)
[2016-09-16 06:48] LABS: ALANINE AMINOTRANSFERASE 11 U/L (0-55); ALBUMIN 2.2 GM/DL (3.2-4.5); ANION GAP 6 MMOL/L (5-14); ASPARTATE AMINO TRANSFERASE 15 U/L (5-34); BILIRUBIN,TOTAL 0.7 MG/DL (0.1-1.0); BLOOD UREA NITROGEN 28 MG/DL (7-18); BUN/CREATININE RATIO 38; CALCIUM 7.5 MG/DL (8.5-10.1); CARBON DIOXIDE 24 MMOL/L (21-32); CHLORIDE 102 MMOL/L (98-107); CREATININE SERUM 0.74 MG/DL (0.60-1.30); GFR ESTIMATED > 60; GLUCOSE 86 MG/DL (70-105); POTASSIUM 4.7 MMOL/L (3.6-5.0); SODIUM 132 MMOL/L (135-145); TOTAL PROTEIN 4.2 GM/DL (6.4-8.2)
--- NOTE | 2016-09-16 08:24 | Progress Note (SOAP) ---
Subjective Date Seen by Provider: Sep 16, 2016 Time Seen by Provider: 08:40 Subjective/Events-last exam PT IS AN 81 Y/O FEMALE WHO IS KNOWN TO ME FROM CLINIC. SHE PRESENTED TO THE EMERGENCY DEPARTMENT WITH WEAKNESS, FALLING AT HOME, RIGHT HIP PAIN. HER HGB DROPPED YESTERDAY DOWN TO 7.2, WAS GIVEN 2 UNITS PRBCS WITH HGB UP TO 9.5 TODAY - HEMOCCULT WAS POSITIVE LAST NIGHT. TODAY SHE STATES THAT SHE FEELS FATIGUED, LATERAL RIGHT LEG PAIN - HOWEVER SHE FEELS BETTER TODAY THAN YESTERDAY. Review of Systems General: Fatigue, Malaise HEENT: No Head Aches Pulmonary: No Dyspnea, No Cough Cardiovascular: No: Chest Pain, Palpitations Gastrointestinal: Abdominal Pain, Constipation, No: Nausea Genitourinary: Retention Musculoskeletal: back pain, leg pain, neck pain Neurological: Weakness, No: Confusion Objective Exam Vital Signs Date Time Temp Pulse Resp B/P (MAP) Pulse Ox O2 Delivery O2 Flow Rate FiO2 09/16/16 07:18 100 Room Air 09/16/16 06:55 17 09/16/16 04:00 97.7 72 12 135/63 100 Room Air 09/16/16 02:42 100 Room Air 09/16/16 00:46 18 09/16/16 00:19 97.8 73 18 143/64 95 Room Air 09/16/16 00:00 97.0 77 15 153/69 95 Room Air 09/15/16 22:45 100 Room Air 09/15/16 21:51 96.9 90 14 120/66 Room Air 09/15/16 21:36 96.9 82 15 127/58 100 Room Air 09/15/16 21:10 96.9 82 15 127/58 100 Room Air 09/15/16 21:00 15 09/15/16 20:39 97.5 81 12 129/59 100 Room Air 09/15/16 20:32 20 09/15/16 19:10 100 Room Air 09/15/16 18:15 97.3 82 20 113/60 100 Room Air 09/15/16 18:03 97.7 101 18 117/73 91 Room Air 09/15/16 15:55 97.7 101 18 117/73 91 Room Air 09/15/16 12:51 96.3 77 20 111/54 100 Room Air 09/15/16 09:00 98 Room Air I & O 09/16/16 07:00 Intake Total 2260 ml Output Total 2950 ml Balance -690 ml Capillary Refill : Less Than 3 Seconds General Appearance: No Apparent Distress, WD/WN HEENT: PERRL/EOMI Respiratory: Chest Non Tender, Lungs Clear, Normal Breath Sounds, No Accessory Muscle Use Cardiovascular: Regular Rate, Rhythm, Other ([place] LATERAL RIGHT THIGH) Gastrointestinal: normal bowel sounds, soft, distended Extremity: Normal Capillary Refill, Pedal Edema Neurologic/Psychiatric: Alert, Oriented x3, No Motor/Sensory Deficits, Normal Mood/Affect Skin: Warm/Dry Results Lab Laboratory Tests 09/15/16 16:25: Urine Color YELLOW, Urine Clarity CLEAR, Urine pH 5, Urine Specific [place] 1.015L, Urine Protein 1+H, Urine Glucose (UA) NEGATIVE, Urine Ketones NEGATIVE, Urine Nitrite NEGATIVE, Urine Bilirubin NEGATIVE, Urine Urobilinogen NORMAL, Urine Leukocyte Esterase 1+H, Urine RBC (Auto) NEGATIVE, Urine RBC NONE, Urine WBC RARE, Urine Squamous Epithelial Cells 2-5, Urine Crystals NONE, Urine Bacteria TRACE, Urine Casts PRESENT, Urine Hyaline Casts >50H, Urine Mucus NEGATIVE, Urine Culture Indicated NO 09/16/16 02:26: Stool Occult Blood Immunoassay POSITIVEH 09/16/16 06:15: White Blood Count 10.5, Red Blood Count 3.28L, Hemoglobin 9.5#L, Hematocrit 29L , Mean Corpuscular Volume 89, Mean Corpuscular Hemoglobin 29, Mean Corpuscular Hemoglobin Concent 32, Red Cell Distribution Width 16.3H, Platelet Count 195, Mean Platelet Volume 9.0, Sodium Level 132L, Potassium Level 4.7, Chloride Level 102, Carbon Dioxide Level 24, Anion Gap 6, Blood Urea Nitrogen 28H, Creatinine 0.74, Estimat Glomerular Filtration Rate > 60, BUN/Creatinine Ratio 38, Glucose Level 86, Calcium Level 7.5L, Total Bilirubin 0.7, Aspartate Amino Transf (AST/SGOT) 15, Alanine Aminotransferase (ALT/SGPT) 11, Alkaline Phosphatase 49, Total Protein 4.2L, Albumin 2.2L Assessment/Plan Assessment/Plan Assess & Plan/Chief Complaint BACK PAIN LATERAL RIGHT HIP PAIN SWELLING OF HIP ESOPHAGEAL REFLUX CHRONIC PAIN SYNDROME GENERALIZED WEAKNESS ANEMIA HEMOCCULT POSITIVE STOOL LATERAL CONDYLE FRACTURE ON RIGHT LEG BACK PAIN - RESUMED HOME MEDICATIONS - MONITOR SYMPTOMS. - PAIN UNCONTROLLED - STARTED ON WEAVER NEEDLE LOOM PUMP LATERAL RIGHT HIP PAIN -SWELLING OF HIP - MONITOR SYMPTOMS - USE VOLTAREN GEL ON HIP ESOPHAGEAL REFLUX - RESTARTED PPI CHRONIC PAIN SYNDROME - RESTARTED HOME MEDICATIONS GENERALIZED WEAKNESS - STARTED PHYSICAL THERAPY - STARTED OCC THERAPY TODAY - CONSULT TO INPATIENT REHAB HEMOCCULT POSITIVE STOOLS - CONSULT TO SURGERY FOR EGD. - DR. TORREZ NOTIFIED OF CONSULT LATERAL CONDYLE FRACTURE ON RIGHT LEG BY PROSTHESIS - NO TREATMENT INDICATED - FRACTURE IS NONDISPLACED - NO NEED FOR ORTHO OR TRAUMA CONSULT Clinical Quality Measures DVT/VTE Risk/Contraindication: Risk Factor Score Per Nursin RFS Level Per Nursing on Admit: 4+=Very High WOODY CARBONE MD Sep 16, 2016 08:24
[2016-09-16] MEDS: ASCORBIC ACID (VIT C) 500 MG TABLET PO SCH (08:55)
[2016-09-16] MEDS: VITAMIN D3 1,000 UNITS (CHOLECALCIFEROL) TABLET PO SCH ×2 (08:55→20:59)
[2016-09-16] MEDS: DOCUSATE SODIUM 100 MG (COLACE) CAP PO SCH ×2 (08:55→21:00)
[2016-09-16] MEDS ORDERED: SENNA W/DOCUSATE (SENOKOT S) TABLET PO SCH (09:00)
[2016-09-16] MEDS ORDERED: BISACODYL 10 MG SUPP (DULCOLAX) PR NR (09:30)
[2016-09-16] MEDS: DICLOFENAC 1% GEL 100 GM (VOLTAREN) TUBE TOP SCH ×4 (09:57→21:00)
--- NOTE | 2016-09-16 11:15 | Physical Therapy Daily Note ---
PT Daily Note-Current Subjective Patient has improved pain level right LE and is using IS PROJECT MANAGER for relief. Patient rates right LE pain 3/10. Pain Numeric Pain Scale: 3 Location: Right Location Body Site: Knee Pain Description: Acute Mental Status Patient Orientation: Normal For Age Attachments: Bradford Catheter, IV IS PROJECT MANAGER Transfers Functional [place] Measure 0=Not Assessed/NA 4=Minimal Assistance 1=Total Assistance 5=Supervision or Setup 2=Maximal Assistance 6=Modified [place] 3=Moderate Assistance 7=Complete IndependenceIRFPAI Quality Coding Scale 6 Independent with activity with or without an assistive device 5 Patient requires set up or clean up by helper. Patient completes activity by themselves 4 Supervision or touching assist (CGA). [place] provide cues , steadying assist 3 The helper provides less than half the effort to complete the activity 2 The helper provides more than half the effort to complete the activity 1 Dependent. The helper does all the effort to complete an activity 7 Patient refused to complete or attempt activity 9 The patient did not perform the activity before the current illness or injury 88 Not attempted due to Medical conditions or safety concerns Transfers (B, C, W/C) (FIM): 2 Scootin Rollin Supine to/from Sit: 2 Sit to/from Stand: 5 Bed to/from Chair: 5 Patient has difficulty with bed mobility in hospital bed and requires max assist with this task. Gait Training Gait (FIM): 2 Distance (FIM): 7=790-94 ft Distance: 50' x 2 Gait Level of Assist: 5 Gait Persons Needed: 1 Gait Assistive Device: FWW safe and functional with FWW Exercises Seated Therapy Exercises: Ankle pumps, Long arc quads, Hip flexion Seated Reps: 25 (2 sets) Assessment Patient progressing with decrease in right LE pain. PT to increase activity as tolerated by patient. Patient does self limit due to fatigue. PT Engine Lathe Tender Goals Engine Lathe Tender Goals PT Engine Lathe Tender Goals Time Frame: Oct 03, 2016 Transfers (B,C,W/C) (FIM): 6 Gait (FIM): 6 Gait distance (FIM): 3=150 ft Gait Level of Assist: 6 Gait Assistive Device: FWW PT Plan Treatment/Plan Treatment Plan: Continue Plan of Care Treatment Plan: Bed Mobility, Education, Functional Activity Shamika, Functional Strength, Gait, Safety, Therapeutic Exercise, Transfers Treatment Duration: Oct 03, 2016 Frequency: 6 times per week Estimated Hrs Per Day: .5 hour per day Patient and/or Family Agrees t: Yes Time/GCodes Time In: 1037 Time Out: 1100 Total Billed Treatment Time: 23 Total Billed Treatment 1 visit GT 13 min EX 10 min PT/OT Therapy GCodes Therapy Functional Limitation: Physical Therapy Test(s)/Tool used to determine: Level of Assistance Scale Functional Limitation-Current Charge Code: MOBCUR Modifier: CL Functional Limitation-Goal Charge Code: MOBGOAL Modifier: CI JAIMIE GOINS PT Sep 16, 2016 11:14
--- NOTE | 2016-09-16 14:02 | CONSULTATION REPORT ---
DATE OF CONSULTATION: 09/15/2016 ATTENDING PRIMARY CARE PHYSICIAN: Dr. Araceli Silva. Ms. Fernando Clement is an 81-year-old female known to us. We had seen her in December of 2015 for abdominal distention and pain. She reported that she had had these symptoms before in 2011 in [place], [place] had done better with conservative management. She has had previous abdominal surgeries including abdominal hysterectomy as well as anterior approach for lumbar vertebral open reduction and internal fixation. She continues to have issues with degenerative joint disease including bilateral shoulders; however, was admitted due to worsening pain in the right hip, as well as right leg. Upon admission she was found to be anemic requiring 2 units of blood transfusion. Approximately 10 days ago she was also found to be anemic with a hemoglobin in the 8 range requiring blood as well. Upon further questioning, she reports that she has had a history of peptic ulcer disease and gastroesophageal reflux disease and does not remember ever having an EGD done in the past. She did have a colonoscopy performed in approximately 2013 and does not remember any abnormalities at that time. Again upon further questioning, she reports that when she was living in [place] she did undergo what sounds to be capsule endoscopy 15 years ago with nothing identified. Due to her recent issues with anemia and unknown source, we will recommend an EGD and colonoscopy on this admission. PAST MEDICAL HISTORY: 1. Neuropathy. 2. Osteoarthritis. 3. Gastroesophageal reflux disease. 4. Hypercholesterolemia. 5. Fibromyalgia. PAST SURGERIES: 1. Open appendectomy. 2. Open partial hysterectomy in 1962. 3. Anterior lumbar ORIF 2002. 4. Posterior lumbar ORIF x6. 5. Bilateral total knee arthroplasty. 6. Right breast biopsy which was benign. ALLERGIES: 1. Penicillin. 2. Sulfa. MEDICATIONS: 1. Aspirin 81 mg daily. 2. Prolia injection b.i.d. 3. Simvastatin 40 mg daily. 4. Protonix 40 mg daily. 5. Naproxen daily. 6. Oxycodone 20 mg b.i.d. SOCIAL HISTORY: Negative smoke. Negative alcohol. VITAL SIGNS: Temperature 97.8, blood pressure 115/56, pulse 111 respirations 13, pulse oximetry 100% on room air. REVIEW OF SYSTEMS: This is a well nourished female currently in no acute distress. She is not experiencing any shortness of breath or difficulty breathing. No chest pain, palpitations, or diaphoresis. No nausea, vomiting, diarrhea, or constipation. No red blood per rectum. No dark tarry stools. No fever, chills, or recent inadvertent weight loss. All other review of systems negative. PHYSICAL EXAMINATION: CHEST: Good breath sounds bilaterally, clear. HEART: Regular. No murmurs. EXTREMITIES: No lower extremity edema. Negative Elvia sign. HEENT: No scleral icterus. No cervical lymphadenopathy. ABDOMEN: Soft, nontender, nondistended. SKIN: Warm dry. LABS: WBC 10.5, hemoglobin 9.5, hematocrit 29, platelets 195, BUN 28, creatinine 0.74. ASSESSMENT AND PLAN: 81-year-old female with anemia. She was found to be anemic, approximately 10 days ago requiring blood transfusion as well as iron. She was admitted for right hip and right lower extremity pain due to severe degenerative joint disease; however, was again found to be anemic with a hemoglobin of 7.3 requiring 2 units of packed red-red blood cell transfusion. She has had a history of gastroesophageal reflux disease, as well as peptic ulcer disease. Due to her symptoms, as well as significant anemia, we will recommend an EGD and colonoscopy on this admission which we will schedule. Job ID: [id number] Dictated Date: 09/16/2016 12:52:21 Chart Clerk Date: 09/16/2016 13:40:09/jesusita
--- NOTE | 2016-09-16 14:58 | Occupational Therapy Eval ---
OT Evaluation-General/PLF Medical Diagnosis Admission Date Sep 15, 2016 at 15:42 Medical Diagnosis: intractable R leg pain, hyponatremia, anemia Onset Date: Sep 15, 2016 Therapy Diagnosis Therapy Diagnosis: weakness, decr self care, decr activity tolerance, decr funct mobility Height/Weight Height (Feet): 5 Height (Inches): 7.00 Weight (Pounds): 148 Weight (Ounces): 5.0 Precautions Precautions/Isolations: Fall Prevention Safety Interventions: None Weight Bear Status Weight Bearing Restriction: Weight Bearing/Tolerated Location Restriction: LE Bilateral Referral Physician: Ricardo Referral Reason: Evaluation/Treatment Medical History Pertinent Medical History: Arthritis, GERD, HTN, Neuropathy, OA, Smoking Additional Medical History Chronic back pain, 6 back surgeries, fibromyalgia, ongoing shoulder pain with recent fluid removal (pt reported she had the same thing with L shoulder a month ago), recent UTI, irritable bowel syndrome, DJD, hard of hearing, L TKA, R TKA x 2, C4-C6 stenosis (per pt) Current History Admitted through E with pain radiating down R leg. Leg hard and swollen. Scheduled for EGD and colonoscopy tomorrow Reviewed History: Yes Social History Home: Multilevel (she lives in apartment in basement) Current Living Status: Other Family (daughter and son in law) Entry Into Home: Level Entry Other Obstacles: has chair lift for stairs to main level ADL-Prior Level of Function ADL PLOF Comments Pt reported that she has been able to manage her basic self care needs until just recently, when she has had her daughter present when she showered. She still drives and her garage is on the same level as her apartment (in her daughter's home). 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 Pain reported 2-3/10 and not described. 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 Appearance Alert, cooperative Mental Status/Objective Patient Orientation: Person, Place, Situation Attachments: Central Line, Bradford Catheter Current Upper Extremity ROM Grossly WFL active on L. R grossly WFL except about 30 degrees R shoulder flex/ abd (about 60 passive tolerated) Upper Extremity Strength Grossly 4/5 (except R shoulder limited due to pain on movement) ADL-Treatment ADL-Current Per PT evaluation, pt needs max assist for bed mobility and help to get to standing, then can move fairly well. Pt declined OOB ADLs but has been using BSC , available in her room. Functional Bard Measure 0=Not Assessed/NA 4=Minimal Assistance 1=Total Assistance 5=Supervision or Setup 2=Maximal Assistance 6=Modified Bard 3=Moderate Assistance 7=Complete IndependenceIRFPAI Quality Coding Scale 6 Independent with activity with or without an assistive device 5 Patient requires set up or clean up by helper. Patient completes activity by themselves 4 Supervision or touching assist (CGA). [place] provide cues , steadying assist 3 The helper provides less than half the effort to complete the activity 2 The helper provides more than half the effort to complete the activity 1 Dependent. The helper does all the effort to complete an activity 7 Patient refused to complete or attempt activity 9 The patient did not perform the activity before the current illness or injury 88 Not attempted due to Medical conditions or safety concerns Pt left up in bed, all needs met. Education OT Patient Education: Purpose of tx/functional activities, Rehab process OT Fire Captain Marine Goals Fire Captain Marine Goals Time Frame: Oct 10, 2016 Eating (FIM): 6 Grooming(FIM): 6 Bathing(FIM): 5 Upper Body Dressing(FIM): 5 Lower Body Dressing(FIM): 5 Toileting(FIM): 6 Toilet/Commode Transfer(FIM): 6 Shower Transfer(FIM): 5 Additional Goals: 2-Verbalize Understanding, 3-ImproveStrength/Shamika 1=Demonstrate adherence to instructed precautions during ADL tasks. 2=Patient will verbalize/demonstrate understanding of assistive devices/ modifications for ADL. 3=Patient will improve strength/tolerance for activity to enable patient to perform ADL's. OT Education/Plan Problem List/Assessment Assessment: Decreased UE Strength, Dependent Transfers, Impaired Bed Mobility, Impaired Self-Care Skills, Restricted Funct UE ROM Pt would benefit from skilled OT to increase her independence in basic self care to allow her to safely return to her home to live independently, with family support. Discharge Recommendations Plan/Recommendations: Continue POC Barriers to Progress decreased functional use R shoulder, chronic back pain, neuropathy Treatment Plan/Plan of Care Treatment,Training & Education: Yes Patient would benefit from OT for education, treatment and training to promote independence in ADL's, mobility, safety and/or upper extremity function for ADL' s. Plan of Care: ADL Retraining, Functional Mobility, UE Funct Exercise/Act, UE Neuromus Re-Ed/Coord Treatment Duration: Oct 10, 2016 Frequency: 5 times per week Estimated Hrs Per Day: .5 hour per day Agreement: Yes Rehab Potential: Good Time/GCodes Start Time: 14:00 Stop Time: 14:20 Total Time Billed (hr/min): 20 Billed Treatment Time visit, 20 minutes evaluation moderate intensity PT/OT Therapy GCodes Therapy Functional Limitation: Occupational Therapy Test(s)/Tool used to determine: FIM Functional Limitation-Current Charge Code: SELFCUR Modifier: CM Functional Limitation-Goal Modifier: JS PATEL OT Sep 16, 2016 14:58
[2016-09-16] MEDS: POLYETHYLENE GLYCOL 17 GM (MIRALAX) PACK PO SCH (20:59)
[2016-09-16] MEDS ORDERED: MAGNESIUM CITRATE 300 ML BTL PO ONE (21:00)
[2016-09-16] MEDS: SENNA W/DOCUSATE (SENOKOT S) TABLET PO SCH (21:00)
[2016-09-16] MEDS: ASPIRIN E.C. 81 MG (ECOTRIN) TAB PO SCH (21:00)
--- NOTE | 2016-09-16 23:49 | Conscious Sedation/ASA ---
Conscious Sedation Pre-Proced Time Reviewed: 00:00 ASA Class: 2 Airway Mallampati Classification: ([place] appropriate class) I. II. III, IV Lungs Heart ASA score ASA 1: a normal healthy patient ASA 2: a patient with a mild systemic disease (mid diabetes, controlled hypertension, obesity ASA 3: a patient with a severe systemic disease that limits activity (angina , COPD, prior Myocardial infarction) ASA 4: a patient with an incapacitating disease that is a constant threat to life (CHF, renal failure) ASA 5: a moribund patient not expected to survive 24 hrs. (ruptured aneurysm) ASA 6: a declared brain patient whose organs are being harvested. For emergent operations, add the letter E after the classification Grade 2 Sedation Plan: Analgesia, Amnesia, Plan communicated to team members, Discussed options with patient/fam, Discussed risks with patient/fam Note The patient is an appropriate candidate to undergo the planned procedure, sedation, and anesthesia. The patient immediately re-assessed prior to indication. ABIGAIL TORREZ MD Sep 16, 2016 11:49 pm
--- NOTE | 2016-09-16 23:50 | Progress Note-Pre Operative ---
Pre-Operative Progress Note H&P Reviewed The H&P was reviewed, patient examined and no changes noted. Date Seen by Provider: Sep 17, 2016 Time Seen by Provider: 00:00 Date H&P Reviewed: Sep 17, 2016 Time H&P Reviewed: 00:00 Pre-Operative Diagnosis: anemia ABIGAIL TORREZ MD Sep 16, 2016 11:50 pm
[2016-09-17] MEDS: fentaNYL PCA 300 MCG/30 ML VIAL IV PRN ×3 (03:00→16:21)
[2016-09-17 04:40] VITALS: BP 141/80
[2016-09-17] MEDS: NS IV 1000 ML 1,000 ML IV SCH ×3 (05:16→20:36)
[2016-09-17] MEDS: KETOROLAC 30 MG/ML VIAL IVP PRN (05:20)
[2016-09-17] MEDS: NAPROXEN 250 MG (NAPROSYN) TABLET PO SCH ×2 (05:22→18:51)
[2016-09-17] MEDS: TROSPIUM 20 MG (SANCTURA) TAB PO SCH ×2 (05:22→18:48)
[2016-09-17] MEDS: CALCIUM CARB + VIT D 600 MG (CALCARB + D) TAB PO SCH ×2 (05:22→18:48)
[2016-09-17] MEDS: PANTOPRAZOLE 40 MG (PROTONIX) TAB PO SCH ×2 (05:22→20:37)
[2016-09-17] MEDS: MULTIVIT W/MINERALS TAB (THERAGRAN M) PO SCH (05:23)
[2016-09-17 06:34] LABS: MEAN PLATELET VOLUME 9.2 FL (7.4-10.4); RED BLOOD COUNT 2.96 10^6/uL (4.35-5.85); RED CELL DISTRIBUTION WIDTH 17.4 % (10.0-14.5); WHITE BLOOD COUNT 7.7 10^3/uL (4.3-11.0)
[2016-09-17 06:59] LABS: ANION GAP 6 MMOL/L (5-14); BLOOD UREA NITROGEN 20 MG/DL (7-18); BUN/CREATININE RATIO 35; CALCIUM 7.1 MG/DL (8.5-10.1); CARBON DIOXIDE 24 MMOL/L (21-32); CHLORIDE 105 MMOL/L (98-107); CREATININE SERUM 0.57 MG/DL (0.60-1.30); GFR ESTIMATED > 60; GLUCOSE 74 MG/DL (70-105); POTASSIUM 3.8 MMOL/L (3.6-5.0); SODIUM 135 MMOL/L (135-145)
[2016-09-17] MEDS: ASCORBIC ACID (VIT C) 500 MG TABLET PO SCH (08:07)
[2016-09-17 08:30] VITALS: BP 117/72
--- NOTE | 2016-09-17 11:30 | Occ Therapy Progress Note ---
Therapy Progress Note 1055 Attempted to see pt but getting ready to go for medical procedures. JS PEREZ OT Sep 17, 2016 11:30
[2016-09-17] MEDS: DOCUSATE SODIUM 100 MG (COLACE) CAP PO SCH ×2 (11:50→20:37)
[2016-09-17] MEDS: SENNA W/DOCUSATE (SENOKOT S) TABLET PO SCH ×2 (11:50→20:37)
[2016-09-17] MEDS: VITAMIN D3 1,000 UNITS (CHOLECALCIFEROL) TABLET PO SCH ×2 (11:50→20:37)
[2016-09-17] MEDS: DICLOFENAC 1% GEL 100 GM (VOLTAREN) TUBE TOP SCH ×4 (11:50→20:37)
[2016-09-17] MEDS ORDERED: LIDOCAINE JELLY 2% (XYLOCAINE) 5 ML TUBE ONE (11:55)
[2016-09-17] MEDS ORDERED: fentaNYL INJECTION 100 MCG/2 ML AMP ONE ×2 (11:55→11:56)
[2016-09-17] MEDS ORDERED: HURRICAINE EXT TUBE (BENZOCAINE) ONE (11:56)
[2016-09-17] MEDS ORDERED: MIDAZOLAM 2 MG/2 ML (VERSED) VIAL ONE ×4 (11:56→13:31)
[2016-09-17] MEDS ORDERED: NS IV 500 ML 500 ML ONE (11:57)
[2016-09-17] MEDS ORDERED: NS IV 500 ML 500 ML IV PRN (12:05)
[2016-09-17] MEDS: fentaNYL INJECTION 100 MCG/2 ML AMP IVP PRN ×6 (12:12→13:24)
[2016-09-17] MEDS ORDERED: FLUMAZENIL (ROMAZICON) 0.1 MG/ML 5 ML VIAL INJ PRN (12:15)
[2016-09-17] MEDS ORDERED: LIDOCAINE JELLY 2% (XYLOCAINE) 5 ML TUBE MM PRN (12:15)
[2016-09-17] MEDS ORDERED: HURRICAINE EXT TUBE (BENZOCAINE) XX PRN (12:15)
[2016-09-17] MEDS ORDERED: NALOXONE 0.4 MG/ML 1 ML (NARCAN) VIAL IVP PRN (12:15)
[2016-09-17] MEDS: MIDAZOLAM 2 MG/2 ML (VERSED) VIAL IVP PRN ×7 (12:33→13:37)
[2016-09-17] MEDS ORDERED: NS IV 500 ML 0 ML ONE (13:32)
--- NOTE | 2016-09-17 13:57 | Progress Note-Post Operative ---
Post-Operative Progess Note Surgeon (s)/Environmental Technical Officer (s) Surgeon ABIGAIL TORREZ MD Environmental Technical Officer: none Pre-Operative Diagnosis anemia Post-Operative Diagnosis reflux esophagitis(class B), HH(2cm), moderat-severe gastritis with small antral ulcer(1-2mm) and large plyoric ulcer(1cm) both with overlying clot and no active bleed. chronic stage 2 ext and int hemorrhoids, moderate sigmoid diverticulosis. Procedure & Operative Findings Date of Procedure 09/17/16 Procedure Performed/Findings EGD with bx. Colonoscopy. Anesthesia Type CS Estimated Blood Loss Estimated blood loss (mL): minimal Specimens/Packing Specimens Removed GE jxn, antrum ABIGIAL TORREZ MD Sep 17, 2016 13:57
[2016-09-17 14:25] VITALS: BP 126/56
--- NOTE | 2016-09-17 15:37 | Physical Therapy Progress Note ---
Therapy Progress Note PT attempted to visit w/pt approx. 1305 and pt was gone at Colonoscopy so will check back later. PT attempted a 2nd time approx. 1450 and nurse reports that pt is too groggy to participate right now. PT will attempt tomorrow. DANDRE LEON SECURITY POLICE Sep 17, 2016 15:37
[2016-09-17 16:00] VITALS: BP 149/69
[2016-09-17] MEDS: SUCRALFATE 1 GM (CARAFATE) TAB PO SCH ×2 (18:52→20:37)
[2016-09-17 20:11] VITALS: BP 103/55
[2016-09-17] MEDS: ASPIRIN E.C. 81 MG (ECOTRIN) TAB PO SCH (20:37)
[2016-09-18] VITALS: BP 145/69
[2016-09-18] MEDS: fentaNYL PCA 300 MCG/30 ML VIAL IV PRN ×3 (00:47→15:34)
[2016-09-18 04:00] VITALS: BP 146/77
[2016-09-18 05:38] LABS: RED BLOOD COUNT 2.9 10^6/uL (4.35-5.85); RED CELL DISTRIBUTION WIDTH 17.6 % (10.0-14.5); WHITE BLOOD COUNT 6.8 10^3/uL (4.3-11.0)
[2016-09-18 06:05] LABS: ANION GAP 7 MMOL/L (5-14); BLOOD UREA NITROGEN 13 MG/DL (7-18); BUN/CREATININE RATIO 25; CALCIUM 7.3 MG/DL (8.5-10.1); CARBON DIOXIDE 21 MMOL/L (21-32); CHLORIDE 107 MMOL/L (98-107); CREATININE SERUM 0.52 MG/DL (0.60-1.30); GFR ESTIMATED > 60; GLUCOSE 76 MG/DL (70-105); POTASSIUM 4.1 MMOL/L (3.6-5.0); SODIUM 135 MMOL/L (135-145)
[2016-09-18] MEDS: NS IV 1000 ML 1,000 ML IV SCH (06:32)
[2016-09-18] MEDS: CALCIUM CARB + VIT D 600 MG (CALCARB + D) TAB PO SCH ×2 (06:33→17:51)
[2016-09-18] MEDS: NAPROXEN 250 MG (NAPROSYN) TABLET PO SCH (06:33)
[2016-09-18] MEDS: PANTOPRAZOLE 40 MG (PROTONIX) TAB PO SCH ×2 (06:34→21:14)
[2016-09-18] MEDS: MULTIVIT W/MINERALS TAB (THERAGRAN M) PO SCH (06:34)
[2016-09-18] MEDS: SUCRALFATE 1 GM (CARAFATE) TAB PO SCH ×4 (06:34→21:15)
[2016-09-18] MEDS: TROSPIUM 20 MG (SANCTURA) TAB PO SCH ×2 (06:37→17:02)
[2016-09-18 08:30] VITALS: BP 166/81
--- NOTE | 2016-09-18 08:44 | Progress Note (SOAP) ---
Subjective Date Seen by Provider: Sep 17, 2016 Time Seen by Provider: 09:10 Subjective/Events-last exam LATE ENTRY NOTE - PT SEEN IN HER ROOM - SHE WAS SITTING UP IN A CHAIR AT BEDSIDE. SHE REPORTS THAT SHE DID NOT HAVE CLEAR STOOLS OF YET, IS WORRIED ABOUT HAVING A GOOD COLONOSCOPY DUE TO NOT HAVING CLEAR STOOLS. SHE REPORTS THAT SHE ACTUALLY FELT MUCH BETTER TODAY COMPARED TO YESTERDAY. SHE THINKS THAT THE BLOOD TRANSFUSION HAS MADE A DIFFERENCE TO HER STRENGTH. Objective Exam Vital Signs Date Time Temp Pulse Resp B/P (MAP) Pulse Ox O2 Delivery O2 Flow Rate FiO2 09/18/16 07:50 16 09/18/16 06:52 100 Room Air 09/18/16 06:00 16 09/18/16 04:00 98.9 86 16 146/77 100 FI02 32.00 09/18/16 00:47 18 09/18/16 00:00 98.8 88 20 145/69 100 FI02 35.00 09/17/16 20:11 98.2 95 18 103/55 100 FI02 35.00 09/17/16 18:00 16 09/17/16 16:21 18 09/17/16 16:00 97.7 75 18 149/69 100 FI02 30.00 09/17/16 14:39 97 Room Air 09/17/16 14:25 96.0 77 18 126/56 98 Room Air 09/17/16 10:53 98 Room Air I & O 09/18/16 07:00 Intake Total 3330 ml Output Total 875 ml Balance 2455 ml Capillary Refill : Less Than 3 Seconds General Appearance: No Apparent Distress, WD/WN HEENT: PERRL/EOMI Respiratory: Chest Non Tender, Lungs Clear, Normal Breath Sounds, No Accessory Muscle Use Cardiovascular: Regular Rate, Rhythm Gastrointestinal: normal bowel sounds, non tender, soft Extremity: Normal Capillary Refill, Pedal Edema Neurologic/Psychiatric: Alert, Oriented x3, No Motor/Sensory Deficits, Normal Mood/Affect Skin: Warm/Dry Lymphatic: No Adenopathy Results Lab Laboratory Tests 09/18/16 05:29: White Blood Count 6.8, Red Blood Count 2.90L, Hemoglobin 8.5L, Hematocrit 27L, Mean Corpuscular Volume 93, Mean Corpuscular Hemoglobin 29, Mean Corpuscular Hemoglobin Concent 32, Red Cell Distribution Width 17.6H, Platelet Count 216, Mean Platelet Volume 9.0, Sodium Level 135, Potassium Level 4.1, Chloride Level 107, Carbon Dioxide Level 21, Anion Gap 7, Blood Urea Nitrogen 13, Creatinine 0.52L, Estimat Glomerular Filtration Rate > 60, BUN/Creatinine Ratio 25, Glucose Level 76, Calcium Level 7.3L Assessment/Plan Assessment/Plan Assess & Plan/Chief Complaint BACK PAIN LATERAL RIGHT HIP PAIN SWELLING OF HIP ESOPHAGEAL REFLUX CHRONIC PAIN SYNDROME GENERALIZED WEAKNESS ANEMIA HEMOCCULT POSITIVE STOOL LATERAL CONDYLE FRACTURE ON RIGHT LEG BACK PAIN - RESUMED HOME MEDICATIONS - MONITOR SYMPTOMS. - PAIN UNCONTROLLED - STARTED ON CHANNEL INSTALLER PUMP LATERAL RIGHT HIP PAIN -SWELLING OF HIP - MONITOR SYMPTOMS - USE VOLTAREN GEL ON HIP ESOPHAGEAL REFLUX - RESTARTED PPI CHRONIC PAIN SYNDROME - RESTARTED HOME MEDICATIONS GENERALIZED WEAKNESS - STARTED PHYSICAL THERAPY - STARTED OCC THERAPY TODAY - CONSULT TO INPATIENT REHAB HEMOCCULT POSITIVE STOOLS - CONSULT TO SURGERY FOR EGD. - DR. TORREZ NOTIFIED OF CONSULT - PLANS FOR EGD AND COLONOSCOPY TODAY. LATERAL CONDYLE FRACTURE ON RIGHT LEG BY PROSTHESIS - NO TREATMENT INDICATED - FRACTURE IS NONDISPLACED - NO NEED FOR ORTHO OR TRAUMA CONSULT Clinical Quality Measures DVT/VTE Risk/Contraindication: Risk Factor Score Per Nursin RFS Level Per Nursing on Admit: 4+=Very High WOODY CARBONE MD Sep 18, 2016 08:44
[2016-09-18] MEDS: DOCUSATE SODIUM 100 MG (COLACE) CAP PO SCH ×2 (09:17→21:14)
[2016-09-18] MEDS: DICLOFENAC 1% GEL 100 GM (VOLTAREN) TUBE TOP SCH ×4 (09:17→21:23)
[2016-09-18] MEDS: SENNA W/DOCUSATE (SENOKOT S) TABLET PO SCH ×2 (09:17→21:14)
[2016-09-18] MEDS: VITAMIN D3 1,000 UNITS (CHOLECALCIFEROL) TABLET PO SCH ×2 (09:17→21:14)
--- NOTE | 2016-09-18 10:58 | OPERATIVE REPORT ---
PROCEDURE PHYSICIAN: ABIGAIL TORREZ DATE OF ADMISSION: 09/15/2016 DATE OF PROCEDURE: 09/17/2016 ATTENDING PRIMARY CARE PHYSICIAN: Dr. Araceli Silva. PREOPERATIVE DIAGNOSIS: Anemia. POSTOPERATIVE DIAGNOSES: 1. Reflux esophagitis, class B. 2. Small to moderate size hiatal hernia, approximately 2 cm in size. 3. A moderate to severe gastritis with a small antral ulcer along the lesser curvature which was small and approximately a 1 to 2 mm in size with overlying fibrin clot. There was also a larger pyloric ulcer approximately 1 cm in size, both with overlying clots and no active bleeding. 4. Chronic, stage II external and internal hemorrhoids. 5. Moderate sigmoid diverticulosis. 6. No active bleeding within the colon. PROCEDURE: 1. EGD with biopsy. 2. Colonoscopy. SURGEON: Dr. Torrez. ANESTHESIA: Conscious sedation. ESTIMATED BLOOD LOSS: Minimal. FINDINGS: EGD: Reflux esophagitis, class B with a small to moderate size hiatal hernia, approximately 2 cm in size. There was a moderate to severe gastritis with 2 ulcers identified; one along the prepyloric region along the lesser curvature along angularis incisura approximately 1 to 2 mm in size with overlying fibrin clot. At the pyloric inlet was a larger ulcer, approximately 1 cm in size with an overlying fibrin clot and no active bleeding in either ulcer. Remainder of the duodenum appeared normal. COLONOSCOPY: 1. Chronic, stage II external and internal hemorrhoids. 2. Moderate sigmoid diverticulosis. 3. The remainder of the colon was normal. There were no polyps or any neoplasms identified, as well as no bleeding sources identified. DISPOSITION: The patient tolerated procedure well. Ms. Fernando Clement is an 81-year-old female known to us. We have seen her in December 2015 for abdominal distention and pain. She had reported she has had these type of symptoms before consistent with a partial small bowel obstruction initially in [place], [place] where she lives and did better with conservative management. She has had previous abdominal surgeries including abdominal hysterectomy, as well as anterior approach for lumbar vertebral open reduction and internal fixation. She continues to have issues with degenerative joint disease including bilateral shoulders, however, however was admitted due to degenerative joint disease of the right hip with severe pain, as well as ecchymosis and bruising. She was also found to be anemic requiring 2 units of blood transfusion. Approximately 10 days previous to this admission she was also anemic as an outpatient and was given blood transfusion at that time as well. She does have a history of gastroesophageal reflux disease, as well as peptic ulcer disease. She also did have a colonoscopy before around 2013. Upon further questioning when she lives in [place], [place] it sounded as though she had capsule endoscopy, approximately 15 years ago but she does not recall anything identified. PROCEDURE: The patient was brought to the endoscopy suite, laid in the left lateral decubitus position. After adequate IV pain and sedative medications and conscious sedation anesthesia, the mouthpiece was applied. The endoscope was placed in the mouth, visualizing the pharynx and hypopharyngeal region. Vocal cords, epiglottis and vallecula identified and appeared to be normal. The endoscope was then gently intubated in the esophageal opening and the esophagus insufflated. The endoscope was then gently intubated into the esophagus and the esophagus insufflated. The endoscope was then advanced through the first, second, and 3rd portions of the esophagus and at the level of the GE junction, a reflux esophagitis, class B identified. There were no ulcers or strictures identified in this region. A biopsy was taken with forceps with visualization of good hemostasis. The endoscope was then easily advanced into stomach and endoscope retroflexed visualizing a small to moderate size hiatal hernia, approximately 2 cm in size. This appeared to be type I sliding hiatal hernia. There was a moderate to severe gastritis noted as well as 2 ulcers; one the fundal/antral region along the lesser curvature at the incisura angularis. This small and approximately 1 to 2 mm in size with an overlying clots and no bleeding. A biopsy was taken with forceps and electrocautery with visualization of good hemostasis. The endoscope was then advanced and a larger proximal pyloric ulcer was identified. This was approximately 1 cm in size with overlying fibrin clot and no bleeding identified. The endoscope was then advanced into the remainder of the pylorus and first and second portions of duodenum with no distal obstructions identified. The endoscope was then slowly withdrawn while taking a second look and suctioning of residual air with no additional findings. The patient tolerated this portion the procedure well. We will continue with monitoring her vital signs as well as a blood; however, this does not appear to be bleeding anymore. We will increase her Protonix dosing right now to 40 mg b.i.d. as well as add Carafate 1 gram q.i.d. for the next 2 weeks then on a p.r.n. basis. We will also recommend that she does take for the Protonix 40 mg on a daily basis. Under the same conscious sedation anesthesia, we then proceeded with the colonoscopy portion the procedure. A digital rectal examination was performed, which revealed chronic, stage II external and internal hemorrhoids, not actively edematous or inflamed and no bleeding. Normal sphincter tone was felt and there were no palpable masses. The endoscope was then advanced through the sigmoid colon where moderate sigmoid diverticulosis identified. There were no mucosal inflammatory changes to indicate any active diverticulitis as well as no active or chronic bleeding identified. The endoscope was then advanced through the remainder of the descending, transverse, and ascending colon to the cecum. These segments were normal. There were no polyps or any neoplasms identified throughout the colon or rectum. The endoscope was then slowly withdrawn while taking a second look and suctioning residual air with no additional findings. The patient tolerated the procedure well. We will recommend continued medical management with a high fiber diet with at least 25 to 30 grams of fiber per day to promote soft stools on a daily basis. She does not need another colonoscopy. From what we know to be 10 years for we do not have any records of any previous polyps or as well as no family history of colon cancer. Job ID: [id number] Dictated Date: 09/17/2016 14:07:58 [employer] Choir Director Date: 09/18/2016 10:39:01 / adria
--- NOTE | 2016-09-18 11:09 | Physical Therapy Progress Note ---
Therapy Progress Note Patient refused physical therapy this morning. She states she just got back to the chair from the bathroom and was too tired to participate at this time. She asked if we could come back this afternoon. Will try back this afternoon. GARETT CLEMENT PT Sep 18, 2016 11:08
[2016-09-18 12:00] VITALS: BP 144/74
--- NOTE | 2016-09-18 13:59 | Physical Therapy Daily Note ---
PT Daily Note-Current Subjective Patient in bed pre tx, agrees to PT, has pain in both buttocks and shoulder . Appearance Patient in recliner post tx with nurse call, phone, tray, both legs elevated, all needs met. Mental Status Patient Orientation: Person, Place, Situation Attachments: Oxygen, Bradford Catheter, IV Transfers Functional [place] Measure 0=Not Assessed/NA 4=Minimal Assistance 1=Total Assistance 5=Supervision or Setup 2=Maximal Assistance 6=Modified [place] 3=Moderate Assistance 7=Complete IndependenceIRFPAI Quality Coding Scale 6 Independent with activity with or without an assistive device 5 Patient requires set up or clean up by helper. Patient completes activity by themselves 4 Supervision or touching assist (CGA). [place] provide cues , steadying assist 3 The helper provides less than half the effort to complete the activity 2 The helper provides more than half the effort to complete the activity 1 Dependent. The helper does all the effort to complete an activity 7 Patient refused to complete or attempt activity 9 The patient did not perform the activity before the current illness or injury 88 Not attempted due to Medical conditions or safety concerns Transfers (B, C, W/C) (FIM): 4 Scootin Rollin Supine to/from Sit: 4 Sit to/from Stand: 4 Min assist with all bed mobility but CGA for sit to stand Gait Training Gait (FIM): 4 Distance: 150' Gait Level of Assist: 4 Gait Persons Needed: 1 Gait Assistive Device: FWW CGA, slow ambulation but no unsteadiness or LOB, patient states she is very tired after walking that far. Treatments bed mobility and transfers, ambulation Assessment Current Status: Fair Progress improved bed mobility and ambulation PT Cat Breeder Goals Cat Breeder Goals PT Retirement Goals Time Frame: Oct 03, 2016 Transfers (B,C,W/C) (FIM): 6 Gait (FIM): 6 Gait distance (FIM): 3=150 ft Gait Level of Assist: 6 Gait Assistive Device: FWW PT Plan Problem List Problem List: Activity Tolerance, Functional Strength, Safety, Balance, Gait, Transfer, Bed Mobility Treatment/Plan Treatment Plan: Continue Plan of Care Treatment Plan: Bed Mobility, Education, Functional Activity Shamika, Functional Strength, Gait, Safety, Therapeutic Exercise, Transfers Treatment Duration: Oct 03, 2016 Frequency: 6 times per week Estimated Hrs Per Day: .5 hour per day Patient and/or Family Agrees t: Yes Safety Risks/Education Patient Education: Gait Training, Transfer Techniques, Correct Positioning, Safety Issues Teaching Recipient: Patient Teaching Methods: Demonstration, Discussion Response to Teaching: Reinforcement Needed Time/GCodes Time In: 1335 Time Out: 1350 Total Billed Treatment Time: 15 Total Billed Treatment 1 visit GT 15' PT/OT Therapy GCodes Therapy Functional Limitation: Occupational Therapy Test(s)/Tool used to determine: FIM Functional Limitation-Current Charge Code: SELFCUR Modifier: CM Functional Limitation-Goal Modifier: GARETT MCKEON PT Sep 18, 2016 13:59
--- NOTE | 2016-09-18 15:43 | Progress Note (SOAP) ---
Subjective Date Seen by Provider: Sep 18, 2016 Time Seen by Provider: 15:30 Subjective/Events-last exam Patient seen with Dr. Srinivasan. Patient reports that she is doing much better. Tolerating diet. Ambulating with PT. Denies any blood in stool. Denies and N/V or reflux. no abdominal pain. no fever/chills. Review of Systems General: No Chills, No Night Sweats Gastrointestinal: No: Abdominal Pain, Nausea, Vomiting Objective Exam Vital Signs Date Time Temp Pulse Resp B/P (MAP) Pulse Ox O2 Delivery O2 Flow Rate FiO2 09/18/16 15:34 20 09/18/16 14:59 100 Room Air 09/18/16 13:38 96.2 09/18/16 12:00 96.2 93 20 144/74 94 FI02 30.00 09/18/16 10:57 100 Room Air 09/18/16 08:56 98.9 09/18/16 08:30 96.7 101 22 166/81 100 FI02 30.00 09/18/16 07:50 16 09/18/16 06:52 100 Room Air 09/18/16 06:00 16 09/18/16 04:00 98.9 86 16 146/77 100 FI02 32.00 09/18/16 00:47 18 09/18/16 00:00 98.8 88 20 145/69 100 FI02 35.00 09/17/16 20:11 98.2 95 18 103/55 100 FI02 35.00 09/17/16 18:00 16 09/17/16 16:21 18 09/17/16 16:00 97.7 75 18 149/69 100 FI02 30.00 I & O 09/18/16 07:00 Intake Total 3330 ml Output Total 875 ml Balance 2455 ml Capillary Refill : Less Than 3 Seconds General Appearance: No Apparent Distress, WD/WN HEENT: PERRL/EOMI Neck: Full Range of Motion, Normal Inspection, Non Tender, Supple Respiratory: Chest Non Tender, Lungs Clear, Normal Breath Sounds, No Accessory Muscle Use, No Respiratory Distress Cardiovascular: Regular Rate, Rhythm, No Murmur Gastrointestinal: normal bowel sounds, non tender, soft Extremity: Normal Capillary Refill, Non Tender Neurologic/Psychiatric: Alert, Oriented x3 Skin: Normal Color, Warm/Dry Results Lab Laboratory Tests 09/18/16 05:29: White Blood Count 6.8, Red Blood Count 2.90L, Hemoglobin 8.5L, Hematocrit 27L, Mean Corpuscular Volume 93, Mean Corpuscular Hemoglobin 29, Mean Corpuscular Hemoglobin Concent 32, Red Cell Distribution Width 17.6H, Platelet Count 216, Mean Platelet Volume 9.0, Sodium Level 135, Potassium Level 4.1, Chloride Level 107, Carbon Dioxide Level 21, Anion Gap 7, Blood Urea Nitrogen 13, Creatinine 0.52L, Estimat Glomerular Filtration Rate > 60, BUN/Creatinine Ratio 25, Glucose Level 76, Calcium Level 7.3L Assessment/Plan Assessment/Plan Assess & Plan/Chief Complaint An 81 year old female with Anemia who was found to have a antral and pyloric ulcer. Continue with medical management with Carafate and protonix. CBC and CMP in AM. [place] diet. Continue with PT/OT. Clinical Quality Measures DVT/VTE Risk/Contraindication: Risk Factor Score Per Nursin RFS Level Per Nursing on Admit: 4+=Very High ROQUE FONTANA [employer]ANCH CONSULTANT Sep 18, 2016 3:43 pm
--- NOTE | 2016-09-18 16:09 | Occupational Ther Daily Note ---
OT Current Status-Daily Note Subjective Pt seen in room, up in recliner, agreeable to OT. Pt reported in no pain at this time Appearance Alert, cooperative Mental Status/Objective Functional [place] Measure 0=Not Assessed/NA 4=Minimal Assistance 1=Total Assistance 5=Supervision or Setup 2=Maximal Assistance 6=Modified [place] 3=Moderate Assistance 7=Complete [place] Attachments: Bradford Catheter, IV, Telemetry Other Treatment Pt and daughter education on what to expect on rehab unit. Daughter will arrange to bring in clothing and other personal items. Discussed ADLs to be done on ARU in am. Pt did AAROM bilat UEs (requires assistance due to muscle weakness). Significant crepitus bilat shoulders. Pt tends to compensate with shoulder elevation when doing sh flex - able to minimize this compensation with skilled facilitation techniques. Significant edema in bilat UEs limits ROM bilat UEs. Strengthening and ROM to help pt with ADLs. Pt left up in recliner, all needs met. Education OT Patient Education: Exercise program, Purpose of tx/functional activities, Rehab process Teaching Recipient: Patient Teaching Methods: Demonstration, Discussion Response to Teaching: Verbalize Understanding, Return Demonstration, Reinforcement Needed OT Short Term Goals Short Term Goals 1=Demonstrate adherence to instructed precautions during ADL tasks. 2=Patient will verbalize/demonstrate understanding of assistive devices/ modifications for ADL. 3=Patient will improve strength/tolerance for activity to enable patient to perform ADL's. OT [facility] Goals [facility] Goals Time Frame: Oct 10, 2016 Eating (FIM): 6 Grooming(FIM): 6 Bathing(FIM): 5 Upper Body Dressing(FIM): 5 Lower Body Dressing(FIM): 5 Toileting(FIM): 6 Toilet/Commode Transfer(FIM): 6 Shower Transfer(FIM): 5 Additional Goals: 2-Verbalize Understanding, 3-ImproveStrength/Shamika 1=Demonstrate adherence to instructed precautions during ADL tasks. 2=Patient will verbalize/demonstrate understanding of assistive devices/ modifications for ADL. 3=Patient will improve strength/tolerance for activity to enable patient to perform ADL's. OT Education/Plan Problem List/Assessment Pt would benefit from skilled OT to increase her independence in basic self care to allow her to safely return to her home to live independently, with family support. Discharge Recommendations Plan/Recommendations: Continue POC Treatment Plan/Plan of Care Patient would benefit from OT for education, treatment and training to promote independence in ADL's, mobility, safety and/or upper extremity function for ADL' s. Plan of Care: ADL Retraining, Functional Mobility, UE Funct Exercise/Act, UE Neuromus Re-Ed/Coord Treatment Duration: Oct 10, 2016 Frequency: 5 times per week Estimated Hrs Per Day: .5 hour per day Agreement: Yes Rehab Potential: Good Time/GCodes Start Time: 15:15 Stop Time: 15:40 Total Time Billed (hr/min): 25 Billed Treatment Time visit, 25 minutes exercise PT/OT Therapy GCodes Therapy Functional Limitation: Occupational Therapy Test(s)/Tool used to determine: FIM Functional Limitation-Current Charge Code: SELFCUR Modifier: CM Functional Limitation-Goal Modifier: JS PATEL OT Sep 18, 2016 16:09
[2016-09-18 16:25] VITALS: BP 144/78
[2016-09-18 20:00] VITALS: BP 151/74
[2016-09-18] MEDS: POLYETHYLENE GLYCOL 17 GM (MIRALAX) PACK PO SCH (21:13)
[2016-09-19 00:19] VITALS: BP 174/79
[2016-09-19] MEDS: fentaNYL PCA 300 MCG/30 ML VIAL IV PRN (00:25)
[2016-09-19 05:12] VITALS: BP 163/72
[2016-09-19 06:01] LABS: MEAN PLATELET VOLUME 9.2 FL (7.4-10.4); RED BLOOD COUNT 2.71 10^6/uL (4.35-5.85); RED CELL DISTRIBUTION WIDTH 17.5 % (10.0-14.5); WHITE BLOOD COUNT 7.4 10^3/uL (4.3-11.0)
[2016-09-19 06:23] LABS: ANION GAP 10 MMOL/L (5-14); BLOOD UREA NITROGEN 11 MG/DL (7-18); BUN/CREATININE RATIO 20; CALCIUM 6.7 MG/DL (8.5-10.1); CARBON DIOXIDE 20 MMOL/L (21-32); CHLORIDE 104 MMOL/L (98-107); CREATININE SERUM 0.54 MG/DL (0.60-1.30); GFR ESTIMATED > 60; GLUCOSE 92 MG/DL (70-105); POTASSIUM 3.7 MMOL/L (3.6-5.0); SODIUM 134 MMOL/L (135-145)
[2016-09-19] MEDS: TROSPIUM 20 MG (SANCTURA) TAB PO SCH (06:37)
[2016-09-19] MEDS: MULTIVIT W/MINERALS TAB (THERAGRAN M) PO SCH (06:37)
[2016-09-19] MEDS: PANTOPRAZOLE 40 MG (PROTONIX) TAB PO SCH (06:37)
[2016-09-19] MEDS: CALCIUM CARB + VIT D 600 MG (CALCARB + D) TAB PO SCH (06:37)
[2016-09-19] MEDS: SUCRALFATE 1 GM (CARAFATE) TAB PO SCH (06:37)
[2016-09-19] MEDS: SENNA W/DOCUSATE (SENOKOT S) TABLET PO SCH (08:28)
[2016-09-19] MEDS: DICLOFENAC 1% GEL 100 GM (VOLTAREN) TUBE TOP SCH (08:28)
[2016-09-19] MEDS: DOCUSATE SODIUM 100 MG (COLACE) CAP PO SCH (08:28)
[2016-09-19] MEDS: VITAMIN D3 1,000 UNITS (CHOLECALCIFEROL) TABLET PO SCH (08:28)
[2016-09-19 08:30] VITALS: BP 157/91
--- NOTE | 2016-09-19 08:38 | Physician Query Clarification ---
PQ-Intro New Diagnosis Admission/Discharge Admission Date: Sep 15, 2016 at 15:42 Discharge Date: The medical record reflects the following clinical scenario: History/Risk Factors: Anemia Occult Positive Stools Clinical Findings: Hgb 7.2, 9.1, 7.2, 9.5, 8.7, 8.5 and 8.1 during this stay. EGD showing Large pylor ulcer with underlying fibrin clot, small antral ulcer with underlying fibrin clot gastritis,reflux esophagitis, small to moderate hiatal hernia Colonoscopy showing chronic,stage II external and internal hemorrhoids and moderate sigmoid diverticulosis. Treatment: Blood transfusions Multiple CBCs Question: What condition best reflects the above clinical scenario? Source of bleeding? Please document below. 1. Large pyloric ulcer and small antral ulcer with fibrin clots as source of bleed. 2. Occult positive stool. 3. Other, with explanation of the clinical findings. 4. Clinically undetermined, no explanation for the clinical findings. PHYSICIAN RESPONSE What condition reflects above: 1 In responding to this query, please exercise your independent professional judgment. The purpose of this communication is to more accurately reflect the complexity of your patients condition. The fact that a question is asked does not imply that any particular answer is desired or expected. Thank you for your timely response to this clarification. Requestors name: Anjali Matthews [facility] Phone # ext [phone] or [phone] THIS PHYSICIAN QUERY FORM IS A PERMANENT PART OF THE MEDICAL RECORD ANJALI MATTHEWS Sep 19, 2016 08:38 ABIGAIL TORREZ MD Sep 19, 2016 10:33
--- NOTE | 2016-09-19 08:45 | Physician Query Clarification ---
PQ-Further Specificity Admission/Discharge Admission Date: Sep 15, 2016 at 15:42 Discharge Date: The medical record reflects the following clinical scenario: History/Risk Factors: Documented anemia Occult Positive Stool Clinical Findings: Hgb 7.2, 9.1, 7.2, 9.5, 8.7, 8.5 and 8.1 during this stay Pyloric and antral ulcers, gastritis, hiatal hernia, reflux esophagitis, chronic stage 2 internal and external hemorrhoids and sigmoid diverticulosis. Treatment: Blood transfusions Monitoring multiple CBCs Question: Can you further specify anemia per the clinical indicators above? Please document below. 1. Acute blood loss anemia. 2. Chronic blood loss anemia. 3. Other, with explanation of the clinical findings. 4. Clinically undetermined, no explanation for the clinical findings. PHYSICIAN RESPONSE Can you specify per above: 1 In responding to this query, please exercise your independent professional judgment. The purpose of this communication is to more accurately reflect the complexity of your patients condition. The fact that a question is asked does not imply that any particular answer is desired or expected. Thank you for your timely response to this clarification. Requestors name: Anjali Matthews CCS,CCDS Phone # ext [phone] or [phone] THIS PHYSICIAN QUERY FORM IS A PERMANENT PART OF THE MEDICAL RECORD ANJALI MATTHEWS Sep 19, 2016 08:45 ABIGAIL TORREZ MD Sep 19, 2016 10:33
--- NOTE | 2016-09-19 08:45 | Discharge Summary ---
Diagnosis/Chief Complaint Date of Admission Sep 15, 2016 at 15:42 Date of Discharge Discharge Date: Sep 19, 2016 Discharge Time: 0900 Admission Diagnosis Admission Diagnosis BACK PAIN LATERAL RIGHT HIP PAIN SWELLING OF HIP ESOPHAGEAL REFLUX CHRONIC PAIN SYNDROME GENERALIZED WEAKNESS BACK PAIN Reason Hospital Visit PT IS AN 81 Y/O FEMALE WHO IS KNOWN TO ME FROM CLINIC. SHE PRESENTED TO THE EMERGENCY DEPARTMENT THIS MORNING WITH SEVERE RIGHT LEG PAIN. SHE REPORTS THAT SHE HAD INJECTIONS ON THURSDAY OF LAST WEEK FOR PAIN IN HER RIGHT LEG - HAS NOT GOTTEN MUCH RELIEF FROM THE INJECTION, BUT THIS MORNING UPON AWAKENING TO GO TO THE RESTROOM SHE HAD SO MUCH PAIN THAT SHE COULD NO LONGER TOLERATE IT AND WAS BROUGHT TO THE HOSPITAL BY HER FAMILY. SHE WAS IN THE OFFICE A WEEK AGO - RECEIVED SHOULDER DRAINAGE DUE TO RIGHT SHOULDER SWELLING - BLOODY DRAINAGE - OF 35ML REMOVED AND STEROID INJECTED INTO THE SHOULDER. SHE FINISHED A ROUND OF ORAL STEROIDS YESTERDAY. Discharge Summary Discharge Physical Examination Allergies: Coded Allergies: Penicillins (Verified Allergy, Unknown, 08/11/12) Sulfa (Sulfonamide Antibiotics) (Verified Allergy, Unknown, 09/17/16) Vitals & I&Os Vital Signs Date Time Temp Pulse Resp B/P (MAP) Pulse Ox O2 Delivery O2 Flow Rate FiO2 09/19/16 07:30 97.8 09/19/16 07:15 100 Room Air 09/19/16 05:12 85 20 163/72 09/18/16 16:25 30.00 Hospital Course Pending Labs Laboratory Tests 09/19/16 05:30: White Blood Count 7.4, Red Blood Count 2.71, Hemoglobin 8.1, Hematocrit 25, Mean Corpuscular Volume 93, Mean Corpuscular Hemoglobin 30, Mean Corpuscular Hemoglobin Concent 32, Red Cell Distribution Width 17.5, Platelet Count 227, Mean Platelet Volume 9.2, Sodium Level 134, Potassium Level 3.7, Chloride Level 104, Carbon Dioxide Level 20, Anion Gap 10, Blood Urea Nitrogen 11, Creatinine 0.54, Estimat Glomerular Filtration Rate > 60, BUN/Creatinine Ratio 20, Glucose Level 92, Calcium Level 6.7 Discharge Instructions to patient/family Please see electonic discharge instructions given to patient. Discharge Medications Reviewed and agree with Discharge Medication list on patient's Discharge Instruction sheet Clinical Quality Measures DVT/VTE Risk/Contraindication: Risk Factor Score Per Nursin RFS Level Per Nursing on Admit: 4+=Very High WOODY CARBONE MD Sep 19, 2016 08:45
[2016-09-19] MEDS ORDERED: PANT40TA3 PO (09:10)
[2016-09-19] MEDS ORDERED: SUCR1TAB PO (09:10)
[2016-09-19 10:00] VITALS: BP 157/91
== END 2016-09-19 10:00 | DRG 378 ==
LOC: EDUNIT# 23:51 → ER 23:52 → 4TH 09-15 02:55 → UNDOADMOB 09-15 02:55 → 4TH 09-15 03:30 → OBSVTOIN 09-15 15:42 → ENPENDDIS 09-19 09:00
PROVIDERS: ADMIT Family Medicine; ATTEND Family Medicine
PROC: 0DJD8ZZ Inspection of Lower Intestinal Tract, Via Natural or Artificial Opening Endoscopic (ICD-10-PCS; 2016-09-17)
PROC: 0DB48ZX Excision of Esophagogastric Junction, Via Natural or Artificial Opening Endoscopic, Diagnostic (ICD-10-PCS; principal; 2016-09-17 11:00)
PROC: 0DB78ZX Excision of Stomach, Pylorus, Via Natural or Artificial Opening Endoscopic, Diagnostic (ICD-10-PCS; 2016-09-17 11:00)
DX: K25.4 Chronic or unspecified gastric ulcer with hemorrhage (principal); K29.70 Gastritis, unspecified, without bleeding; K21.0 Gastro-esophageal reflux disease with esophagitis; K44.9 Diaphragmatic hernia without obstruction or gangrene; D62 Acute posthemorrhagic anemia; E87.1 Hypo-osmolality and hyponatremia; S72.421A Displaced fracture of lateral condyle of right femur, initial encounter for closed fracture; K64.1 Second degree hemorrhoids; K57.10 Diverticulosis of small intestine without perforation or abscess without bleeding; R19.5 Other fecal abnormalities; M16.11 Unilateral primary osteoarthritis, right hip; M19.011 Primary osteoarthritis, right shoulder; M19.012 Primary osteoarthritis, left shoulder; M79.7 Fibromyalgia; E78.00 Pure hypercholesterolemia, unspecified; G62.9 Polyneuropathy, unspecified; G89.4 Chronic pain syndrome; M54.9 Dorsalgia, unspecified; K58.9 Irritable bowel syndrome, unspecified; R53.1 Weakness; W19.XXXA Unspecified fall, initial encounter; Y92.009 Unspecified place in unspecified non-institutional (private) residence as the place of occurrence of the external cause; Z96.651 Presence of right artificial knee joint; Z87.891 Personal history of nicotine dependence; Z87.11 Personal history of peptic ulcer disease
CPT/HCPCS: 36415; 72170; 73552; 73562; 80048; 80053; 81000; 82274; 83735; 85025; 85027; 85610; 85730; 86850; 86900; 86901; 86920; 94760; 96361; 96374; 96375; G0378

== ENCOUNTER 2016-09-19 10:01 | Inpatient (IN) | payer MEDICARE, OTHER ==
[~2016-09-19] VITALS: Ht 170.2 cm; Wt 66.3 kg
[2016-09-19 10:00] VITALS: BP 144/82
[~2016-09-19 10:01] MED LIST changes: +CYCL5TAB PO; +FURO20TA4 PO; +NF-SOLIF5T PO; +POLY17PO6 PO; +POTA10CA43 PO; +PRED10TA22; +SUCR1TAB PO
[2016-09-19] MEDS ORDERED: FUROSEMIDE 40 MG/4 ML INJ (LASIX) IVP NR (10:15)
[2016-09-19] MEDS ORDERED: CYCLOBENZAPRINE 10 MG (FLEXERIL) TAB PO PRN ×2 (10:30→13:30)
[2016-09-19] MEDS: SUCRALFATE 1 GM (CARAFATE) TAB PO SCH ×3 (11:00→20:49)
--- NOTE | 2016-09-19 12:36 | PM&R Post Admission Assessment ---
Post Admission Physician Asses The preadmission screen agrees with the post admission assessment that the patient is a good candidate for inpatient rehabilitation. The patient will have a comprehensive program of inpatient rehabilitation with a goal of maximizing level of functional independence prior to discharge home with her daughter. The patient will have PT/OT ninety minutes per day, each discipline, five days a week for gait, strengthening, conditioning, balance, ADLs, any patient/family/caregiver training as necessary. Speech therapy to do cognitive assessment and treat as indicated. Rehabilitation nursing to assist with bowel, bladder, skin, wound care, medication administration, pain management. Landscape Technician to assist with discharge planning, community reentry. SCD's for DVT prophylaxis. She appears to be well motivated to participate in three hours of therapy a day. She should be able to tolerate three hours of therapy a day from a medical standpoint. She should benefit from the three hours of therapy a day. She has a reasonable discharge plan, reasonable discharge rehabilitation goals and a supportive family. She has various comorbidities that need to be closely monitored with medications and treatments adjusted on a daily basis as needed. 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 Risks for this patient include: 1. Fall 2. Fracture 3. DVT 4. Pulmonary embolism 5. Wound infection 6. Skin breakdown 7. Contractures 8. Poorly controlled pain 9. Urinary retention 10. UTI 11. Respiratory infection 12. Aspiration 13. Recurrent rt shoulder JT effusion Estimated Length of Stay: 14 days Prognosis: Rehab prognosis appears good for goal of discharge home with daughter modified independent to supervision for ADLs and mobility skills. BERE BEAN MD Sep 19, 2016 12:36
--- NOTE | 2016-09-19 12:44 | Occupational Therapy Eval ---
OT Evaluation-General/PLF Medical Diagnosis Admission Date Sep 19, 2016 at 10:01 Medical Diagnosis: intractable right leg pain, hyponatremia, anemia Onset Date: Sep 15, 2016 Therapy Diagnosis Therapy Diagnosis: decreased self care skills Height/Weight Height (Feet): 5 Height (Inches): 7.00 Weight (Pounds): 148 Weight (Ounces): 5.0 Precautions Precautions/Isolations: Fall Prevention, Standard Precautions Medical History Pertinent Medical History: Arthritis, GERD, HTN, Neuropathy, OA, Smoking Additional Medical History chronic back pain, 6 back surgeries, fibromyalgia, ongoing shoulder pain with recent fluid removal (pt reported she had the same thing with left shoulder a month ago), recent UTI, IBS, DJD, BEAVER, left TKA, right TKAx2, 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 Pt states she has a chair lift to get to upstairs. ADL-Prior Level of Function ADL PLOF Comments Pt reports being independent. Uses 4WW for mobility. Pt states recently she's had daughter nearby during showers for increased safety. Pt reports fixing herself breakfast and lunch and eating supper with daughter DME/Equipment: Grab Bars, Reachers, Shower, Tall Toilet Drive Self: Yes OT Current Status Subjective Pt sitting in w/c, agrees to therapy. Pt reports 6/10 right shoulder and hip/ buttocks pain. Mental Status/Objective Patient Orientation: Person, Place, Situation Current Glasses/Contacts: No Hearing Aids: No Dentures/Partials: Yes Hand Dominance: Right Upper Extremity ROM Decreased ROM bilateral shoulders secondary to pain. Minimal active right shoulder flexion. Remainder grossly WFL. Arthritic changes in hands. Upper Extremity Coordination Fair Upper Extremity Sensation Pt reports tingling/numbness in bilateral hands. Upper Extremity Strength Grossly 4/5 distally. Edema: Pt has edema in UE ADL-Treatment ADL-Current Pt sit to stand and transfer w/c to recliner with minimal assistance. Pt completed sponge bath while seated in chair. Pt able to wash bilateral UE, chest , abdomen, christin area, and bilateral upper legs. Assist to wash feet. Pt stood with minimal assistance for balance while washing buttocks. Pt able to thread bilateral UE into bra and bring around back, but requires assist to fasten. Don pullover shirt with SBA. Pt used customer data technician to start underwear and pants over feet (this is her practice at baseline). Stood with minimal assistance for pant hike. Pt able to doff bilateral socks with SBA using customer data technician. Donned left sock and shoe with SBA. Assist required to don right sock and shoe. Pt fatigues with activity and requires occasional rest breaks during session. Pt sitting in chair with needs met and speech therapist present after session. Functional [place] Measure 0=Not Assessed/NA 4=Minimal Assistance 1=Total Assistance 5=Supervision or Setup 2=Maximal Assistance 6=Modified [place] 3=Moderate Assistance 7=Complete IndependenceIRFPAI Quality Coding Scale 6 Independent with activity with or without an assistive device 5 Patient requires set up or clean up by helper. Patient completes activity by themselves 4 Supervision or touching assist (CGA). [place] provide cues , steadying assist 3 The helper provides less than half the effort to complete the activity 2 The helper provides more than half the effort to complete the activity 1 Dependent. The helper does all the effort to complete an activity 7 Patient refused to complete or attempt activity 9 The patient did not perform the activity before the current illness or injury 88 Not attempted due to Medical conditions or safety concerns Bathing (FIM): 3 Shower/Bathe Self (QC): 3 Upper Body Dressing (FIM): 4 Upper Body Dressing (QC): 3 Lower Body Dressing (FIM): 4 Lower Body Dressing (QC): 3 On/Off Footwear (QC): 3 Education OT Patient Education: Rehab process Teaching Recipient: Patient Teaching Methods: Discussion Response to Teaching: Verbalize Understanding OT Short Term Goals Short Term Goals Time Frame: Sep 26, 2016 Bathing(FIM): 4 Upper Body Dressing(FIM): 5 Lower Body Dressing(FIM): 4 Toilet/Commode Transfer(FIM): 5 Additional Short Term Goals: 1-Demonstrate ADL Tasks, 2-Verbalize Understanding , 3-ImproveStrength/Shamika 1=Demonstrate adherence to instructed precautions during ADL tasks. 2=Patient will verbalize/demonstrate understanding of assistive devices/ modifications for ADL. 3=Patient will improve strength/tolerance for activity to enable patient to perform ADL's. OT Home Service Director Goals Home Service Director Goals Time Frame: Oct 10, 2016 Eating (FIM): 6 Eating (QC): 6 Groomin Oral Hygiene (QC): 6 Bathing(FIM): 5 Shower/Bathe Self (QC): 5 Upper Body Dressing(FIM): 6 Upper Body Dressing (QC): 6 Lower Body Dressing(FIM): 5 Lower Body Dressing (QC): 5 On/Off Footwear (QC): 5 Toileting(FIM): 6 Toileting Hygiene (QC): 6 Toilet/Commode Transfer(FIM): 6 Toilet/Commode Transfer (QC): 6 Shower Transfer(FIM): 5 Additional Goals: 1-Demonstrate ADL Tasks, 2-Verbalize Understanding, 3- ImproveStrength/Shamika 1=Demonstrate adherence to instructed precautions during ADL tasks. 2=Patient will verbalize/demonstrate understanding of assistive devices/ modifications for ADL. 3=Patient will improve strength/tolerance for activity to enable patient to perform ADL's. OT Education/Plan Problem List/Assessment Assessment: Decreased Activ Tolerance, Decreased UE Strength, Dependent Transfers, Impaired Coordination, Impaired Funct Balance, Impaired Self-Care Skills Pt demonstrates decreased ADL functioning, strength, mobility, and activity tolerance. Pt to benefit from skilled OT intervention for ADL training, transfers, strengthening, and safety education to maximize level of function and allow safe return home. Discharge Recommendations Plan/Recommendations: Continue POC Treatment Plan/Plan of Care Treatment,Training & Education: Yes Patient would benefit from OT for education, treatment and training to promote independence in ADL's, mobility, safety and/or upper extremity function for ADL' s. Plan of Care: ADL Retraining, Functional Mobility, Group Exercise/Act as Ind, UE Funct Exercise/Act, UE Neuromus Re-Ed/Coord Treatment Duration: Oct 10, 2016 Frequency: At least 5-7 days/Wk (IRF) Estimated Hrs Per Day: 1.5 hours per day Agreement: Yes Rehab Potential: Good Time/GCodes Start Time: 10:00 Stop Time: 11:05 Total Time Billed (hr/min): 65 Billed Treatment Time 1 visit, EVM(15minutes), ADLx3(50minutes) SU GOMEZ OT Sep 19, 2016 12:44
--- NOTE | 2016-09-19 13:06 | HISTORY AND PHYSICAL ---
DATE OF ADMISSION: 09/19/2016 CHIEF COMPLAINT: Generalized arthritic pain, difficulty with ADLs and mobility skills. HISTORY OF PRESENT ILLNESS: The patient is an 81-year-old female with long-standing osteoarthritis affecting her knees, spine, shoulders and hands, who had a flare of her arthritis requiring drainage of fluid from her right shoulder. She has limited active range of motion of both shoulders and does received some assistance from her family. She has moved recently from [place], [place] to be with her daughter in [place], [place]. Prior level of function : Her daughter cuts her food for her but she is able to eat it once it is set up. She has her own four-wheel Rollator walker with a seat and she had been modified independent for ambulation with a walker until recently prior to this flare. She was having so much pain after a fall that she was unable to get to the bathroom by herself at her daughter's home which she had been doing. She had drainage of fluid from her right shoulder on an outpatient basis at her PCPs office, Dr. Silva. 35 mL were removed. Steroid injected. She also completed a course of oral steroids but still had increased pain and decline in her function.She developed radicular pain in her rt leg which further limited her mobility.She developed swelling and bruising in the rt calf. Present level of function: Currently, she requires assistance for ADLs and mobility skills. She is utilizing oxycodone for pain control. She is also on Prolia subcutaneously every 6 months for treatment of osteoporosis. She is to receive a unit of packed red blood cells today. She has been referred to Inpatient Rehabilitation Unit for a comprehensive program of inpatient rehabilitation. Therapies were begun on the 4th floor, the medical floor. She was felt to be appropriate.She reports 6/10 pain in the rt shoulder,She is rt Hand dominant.She is mod assist for dressing She is setup for eating and grooming She requires someone to cut her food for her as needed.She is min assist for transfers and gait with FWW. PAST MEDICAL HISTORY: 1. Osteoarthritis. 2. Osteoporosis. 3. Chronic pain. 4. She has been assessed by Dr. Blancas neurosurgeon at [facility] in [place], [place] regarding arthritis involving the cervical spine. Dr. Blancas felt it was too risky of procedure, recommended non-surgical management with a a soft cervical collar p.r.n. for pain control and help keep her head in an upright position and to avoid forward flexion. She has had for several spinal surgeries on her lumbar spine. She has a history of scoliosis and osteoarthritis affecting her lumbar spine. At least 2 of surgeries were done in [place] by an orthopedist, remainder in the [place] area. 5. She has just had an assessment with Dr. Srinivasan, general surgery, the patient is on Carafate and Protonix.She has had EGD and Colonoscopy revealing proximal pyloric ulcer not actively bleeding approx 1cm in size and a small 2mm gastric antral ulcer.This is being treated medically as per above ALLERGIES: 1. Penicillin. 2. Sulfa. PAST SURGICAL HISTORY: 1. Bilateral total knee replacements. 2. Appendectomy. 3. Eye surgery. FAMILY HISTORY: 1. Heart disease. 2. Hypertension. SOCIAL HISTORY: She is a . PCP: Dr. Silva. REVIEW OF SYSTEMS: Ten-point review of systems significant for swelling of both hands and rt calf. Osteoarthritic pain involving the shoulders, hands, knees, hips and spine. MEDICATIONS: 1. Protonix 40 mg p.o. daily. 2. Carafate 1 gram p.o. q.i.d. with meals and at bedtime. 3. Calcium carbonate with vitamin D 1 tablet p.o. b.i.d. 4. Vitamin B12 1000 mcg injection monthly. 5. Flexeril 5 mg p.o. t.i.d. p.r.n. spasm. 6. Prolia 60 mg subcutaneous every 6 months next due to in January. 7. Colace 1 mg p.o. b.i.d. 8. Furosemide 20 mg p.o. daily p.r.n. swelling. 9. KCL 10 mEq p.o. daily as needed while taking furosemide. 10. Oxycodone 10 mg p.o. q.6 hours as needed for moderate pain. PHYSICAL EXAMINATION: Significant for a pleasant female, appearing her stated age, sitting in a recliner in no acute distress. VITAL SIGNS: Blood pressure is 163/72, respirations 20, pulse 85. She is afebrile. O2 sat 100% on room air. HEENT: Vision, speech, hearing, grossly intact. No oral lesion is noted. NECK: Supple without mass.Soft cervical collar in place HEART: Regular rhythm. LUNGS: Clear. ABDOMEN: Soft, nontender. Bowel sounds present. EXTREMITIES: Trace edema of both ankles. No calf tenderness. MUSCULOSKELETAL: She has deformities consistent with osteoarthritis involving the PIPs of both hands. She has a well-healed surgical scars over both knees. She has limited active range of motion of both shoulders right more than left with some swelling in both hands and shoulders. Active range of motion of the left shoulder is approximately to 60 degrees, on the right 30 degrees. NEUROLOGIC: Cognition grossly intact. SENSATION: She reports some numbness in her feet with sensation mildly diminished to touch. She has a soft cervical collar in place in the neck. 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 Strength generally fair to fair plus in the upper limbs other than the shoulders.Strength RT difficult to assess due to pain and swelling rt calf with tenderness. Dorsiflexion bilateral 4-/5 left hip flexion 3/5 knee flexion 3+/5 Knee extension 4/5 SKIN : brusing rt calf IMPRESSION: 1. Osteoarthritis of multiple joints with flare s/p fall involving both hands and shoulders with radicular pain rt leg. s/p course of p.o. steroid and aspiration of effusion right shoulder with injection of steroid with decline with outpatient therapies provided as per above. 2. Status post bilateral total knee replacements. 3. Status post multiple lumbar spine surgeries. 4. DJD of the cervical spine, utilizes soft cervical collar when up p.r.n. for comfort. 5. Anemia, to receive transfusion of packed red blood cells today. 6. Bruising associated with pain, swelling and tenderness rt leg 7. S/P EGD and colonscopy DR Srinivasan revealing findings as per above and on Meds as per above for medical treatment. PLAN: The patient will have a comprehensive program of inpatient rehabilitation with goal of maximizing level of functional independence prior to discharge home with daughter and son-in-law. The patient will have PT/OT 90 minutes per day, each discipline, 5 days week for gait, strengthening, conditioning, ADLs, energy conservation, balance, any patient/family/caregiver training necessary, any adaptive equipment as necessary, any modalities that may be hopeful for control in pain and decreased in swelling. Speech therapy do cognitive assessment and treat as indicated. Rehabilitation nursing assist with bowel, bladder, skin care, medication administration, pain management. litigation services manager to assist with discharge planning, community reentry. Follow-up with Dr. Silva as per her schedule. Transfusion of 1 unit packed red blood cells as per Dr. Silva's orders. Follow-up labs as per Dr. Silva. Therapy with fall precautions.F/U with DR Zarina urban. ESTIMATED LENGTH OF STAY: Two weeks. PROGNOSIS: Rehab prognosis appears good for goal of discharging home at prior level of function specifically modified independent for mobility with her a four-wheel walker and modified independent to set up for her basic ADLs with assistance from her daughter and home health care as needed. DIET: Regular. CODE STATUS: Full code. Job ID: [id number] Dictated Date: 09/19/2016 11:08:10 Press Loader Date: 09/19/2016 12:34:32/jesusita SALMON
[2016-09-19] MEDS ORDERED: diphenhydrAMINE 50 MG/ML INJ (BENADRYL) IV PRN (13:30)
[2016-09-19] MEDS ORDERED: ONDANSETRON 4 MG/2 ML (SDV) Z0FRAN IV PRN (13:30)
[2016-09-19] MEDS ORDERED: ACETAMINOPHEN 325 MG TABLET/CAPLET (TYLENOL) PO PRN (13:30)
[2016-09-19] MEDS ORDERED: METOCLOPRAMIDE INJ 10 MG/2 ML (REGLAN) IV PRN (13:30)
--- NOTE | 2016-09-19 13:31 | Occupational Ther Daily Note ---
OT Current Status-Daily Note Subjective Pt alert, sitting in recliner. Lunch in front of pt and pt stated that she couldn't eat it because of her acid reflux. Reordered food. Pt agreed to therapy. Nrsg to bring pt pain medication. Mental Status/Objective Patient Orientation: Person, Place, Time, Situation Functional [place] Measure 0=Not Assessed/NA 4=Minimal Assistance 1=Total Assistance 5=Supervision or Setup 2=Maximal Assistance 6=Modified [place] 3=Moderate Assistance 7=Complete [place] Attachments: Other-See Comments (neck brace) ADL-Treatment Functional [place] Measure 0=Not Assessed/NA 4=Minimal Assistance 1=Total Assistance 5=Supervision or Setup 2=Maximal Assistance 6=Modified [place] 3=Moderate Assistance 7=Complete IndependenceIRFPAI Quality Coding Scale 6 Independent with activity with or without an assistive device 5 Patient requires set up or clean up by helper. Patient completes activity by themselves 4 Supervision or touching assist (CGA). [place] provide cues , steadying assist 3 The helper provides less than half the effort to complete the activity 2 The helper provides more than half the effort to complete the activity 1 Dependent. The helper does all the effort to complete an activity 7 Patient refused to complete or attempt activity 9 The patient did not perform the activity before the current illness or injury 88 Not attempted due to Medical conditions or safety concerns Eating (FIM): 5 (Set up, pt required assistance to open packages. Pt uses utensils to cut food and feed self.) Eating (QC): 5 (Set up, pt required assistance to open packages. Pt uses utensils to cut food and feed self.) Grooming (FIM): 6 (Using 4WW, pt ambulated to bathroom and sat on 4WW seat to complete own grooming.) Oral Hygiene (QC): 6 (Using 4WW, pt ambulated to bathroom and sat on 4WW seat to complete own grooming.) Toileting (FIM): 4 (Using grabbars and 4WW, pt was able to cleanse self and manipulate clothing with CGA.) Toileting Hygiene (QC): 4 (Using grabbars and 4WW, pt was able to cleanse self and manipulate clothing with CGA.) Transfers (B, C, W/C) (FIM): 4 (CGA using 4WW, pt is able to complete transfer. ) Toilet/Commode Transfer (FIM): 3 (Mod A from low surface. Elevated seat with handles placed over toilet to assist with transfers.) Toilet Transfer (QC): 3 (Mod A from low surface. Elevated seat with handles placed over toilet to assist with transfers.) OT Short Term Goals Short Term Goals Time Frame: Sep 26, 2016 Bathing(FIM): 4 Upper Body Dressing(FIM): 5 Lower Body Dressing(FIM): 4 Toilet/Commode Transfer(FIM): 5 Additional Short Term Goals: 1-Demonstrate ADL Tasks, 2-Verbalize Understanding , 3-ImproveStrength/Shamika 1=Demonstrate adherence to instructed precautions during ADL tasks. 2=Patient will verbalize/demonstrate understanding of assistive devices/ modifications for ADL. 3=Patient will improve strength/tolerance for activity to enable patient to perform ADL's. OT Vertical Mill Operator Goals Vertical Mill Operator Goals Time Frame: Oct 10, 2016 Eating (FIM): 6 Eating (QC): 6 Groomin Oral Hygiene (QC): 6 Bathing(FIM): 5 Shower/Bathe Self (QC): 5 Upper Body Dressing(FIM): 6 Upper Body Dressing (QC): 6 Lower Body Dressing(FIM): 5 Lower Body Dressing (QC): 5 On/Off Footwear (QC): 5 Toileting(FIM): 6 Toileting Hygiene (QC): 6 Toilet/Commode Transfer(FIM): 6 Toilet/Commode Transfer (QC): 6 Shower Transfer(FIM): 5 Additional Goals: 1-Demonstrate ADL Tasks, 2-Verbalize Understanding, 3- ImproveStrength/Shamika 1=Demonstrate adherence to instructed precautions during ADL tasks. 2=Patient will verbalize/demonstrate understanding of assistive devices/ modifications for ADL. 3=Patient will improve strength/tolerance for activity to enable patient to perform ADL's. OT Education/Plan Problem List/Assessment Pt demonstrates decreased ADL functioning, strength, mobility, and activity tolerance. Pt to benefit from skilled OT intervention for ADL training, transfers, strengthening, and safety education to maximize level of function and allow safe return home. Discharge Recommendations Plan/Recommendations: Continue POC Treatment Plan/Plan of Care Patient would benefit from OT for education, treatment and training to promote independence in ADL's, mobility, safety and/or upper extremity function for ADL' s. Plan of Care: ADL Retraining, Functional Mobility, Group Exercise/Act as Ind, UE Funct Exercise/Act, UE Neuromus Re-Ed/Coord Treatment Duration: Oct 10, 2016 Frequency: At least 5-7 days/Wk (IRF) Estimated Hrs Per Day: 1.5 hours per day Agreement: Yes Rehab Potential: Good Time/GCodes Start Time: 13:15 Stop Time: 13:45 Total Time Billed (hr/min): 30 Billed Treatment Time 1 visit-FA 2 (30 min) ORA GLEASON Sep 19, 2016 13:31
--- NOTE | 2016-09-19 13:36 | ST Cognitive Linguistic Eval ---
Speech Evaluation-General Medical Diagnosis Weakness, Gastric Ulcer Onset Date: Sep 19, 2016 Therapy Diagnosis Therapy Diagnosis: Cognitive Linguistic Skills WNL Precautions Precautions/Isolations: Fall Prevention, Standard Precautions Referral Referring Physician: Dr. Herson Rouse Reason for Referral: Evaluation/Treatment Cognitive Screen. Medical History Pertinent Medical History: Arthritis, GERD, HTN, Neuropathy, OA, Smoking Reviewed History: Yes Social History Current Living Status: Children (daughter and son-in-law) Speech PLF-Current Status Prior Level of Function The patient denied recent challenges with cognition, speech, or language. Subjective The patient was recently admitted to [facility] Rehabilitation unit with a diagnosis of weakness, right hip pain, and gastric ulcer. The patient greeted the clinician appropriately and was agreeable to participation in the cognitive evaluation. Language Eval: Auditory Comprehends Simple Yes/No Ques: Functional Indent/Objects Multiple [place]: Functional Ident/Pics in Multiple [place]: Functional Follows 1-Step Commands: Functional Follows Complex Directions: Functional Follows General Conversations: Functional Language Eval: Verbal Language Completes Spontaneous Greeting: Functional Produces Auto, Serial Info: Functional Imitates Simple Words/Phrases: Functional Word Finding: Functional Requests Basic Needs: Functional States Basic Personal Info: Functional Cognitive Patient Orientation The patient was oriented to month, day of week, date, month, and year ( independently). Objective Cognitive Domain Attention: WNL Memory: WNL Problem Solving: Functional Objective Impression The patient demonstrated cognitive linguistic skills grossly within normal limits. Communication/Social Cognition Comprehension: 6 Expression: 6 Social Interaction: 6 Problem Solvin Memory: 6 Speech Patient Assess Expression of Ideas/Wants: Expression (4) Understanding [place] Content: Understands (4) Brief Interview-Mental Status: Yes Repetition of Three Words: Three (3) Temporal Orientation: Year: Correct (3) Temporal Orientation: Month: Accurate within 5 days(2) Temporal Orientation: Day: Correct (1) Recall : Wear to say "Sock": Yes, no cue required (2) Recall : Color: Yes, no cue required (2) Recall : Bed: Yes, no cue required (2) Speech-Plan Treatment Plan Speech Therapy Treatment Plan: Discontinue ST Evaluation, only. Frequency: Modified Program (IRF) Estimated Hrs Per Day: .25 hour per day (The patient will not receive skilled speech pathology treatment at this time.) Rehab Potential: Good Safety Risks/Education Teaching Recipient: Patient Teaching Methods: Discussion Response to Teaching: Verbalize Understanding Education Topics Provided: Results, Recommendations, Plan of Care Time Speech Therapy Time In: 11:15 Speech Therapy Time Out: 11:30 Total Billed Time: 15 Billed Treatment Time 1, UNRULY GEORGE Sep 19, 2016 13:36
[2016-09-19] MEDS ORDERED: NS IV 500 ML 500 ML ONE (13:39)
[2016-09-19 14:07] VITALS: BP 145/83
[2016-09-19 14:24] VITALS: BP 123/69
--- NOTE | 2016-09-19 15:12 | Occupational Ther Daily Note ---
OT Current Status-Daily Note Subjective Pt alert, lying in bed. Pt receiving blood. Pt agreed to therapy. No c/o pain at this time. Mental Status/Objective Patient Orientation: Person, Place, Time, Situation Functional [place] Measure 0=Not Assessed/NA 4=Minimal Assistance 1=Total Assistance 5=Supervision or Setup 2=Maximal Assistance 6=Modified [place] 3=Moderate Assistance 7=Complete [place] Attachments: IV, Other-See Comments (neck) ADL-Treatment Functional [place] Measure 0=Not Assessed/NA 4=Minimal Assistance 1=Total Assistance 5=Supervision or Setup 2=Maximal Assistance 6=Modified [place] 3=Moderate Assistance 7=Complete IndependenceIRFPAI Quality Coding Scale 6 Independent with activity with or without an assistive device 5 Patient requires set up or clean up by helper. Patient completes activity by themselves 4 Supervision or touching assist (CGA). [place] provide cues , steadying assist 3 The helper provides less than half the effort to complete the activity 2 The helper provides more than half the effort to complete the activity 1 Dependent. The helper does all the effort to complete an activity 7 Patient refused to complete or attempt activity 9 The patient did not perform the activity before the current illness or injury 88 Not attempted due to Medical conditions or safety concerns Other Treatment Pt educated on theraband exercises (medium resistance) and pt verbalized understanding of exercises and the benefits. Due to receiving blood pt did not demonstrate understanding of theraband exercises. Pt given medium resistance theraputty to work on gross grasp, gross pinch and fine motor strengthening. Pt was able to demonstrate understanding of each exercise. Pt demonstrated weakness in L hand and decreased ROM of B shldrs. Pt given built up handles for eating utensils due to decreased tactile sensation in fingers. Pt discussed elastic shoelaces that would keep her shoe tight and she would be able to tighten. After therapy, nrsg in room. Call light/phone in reach. All needs met in room. Education OT Patient Education: Exercise program, Modified ADL techniques, Purpose of tx/ functional activities Teaching Recipient: Patient, Significant Other Teaching Methods: Demonstration Response to Teaching: Verbalize Understanding, Return Demonstration OT Short Term Goals Short Term Goals Time Frame: Sep 26, 2016 Bathing(FIM): 4 Upper Body Dressing(FIM): 5 Lower Body Dressing(FIM): 4 Toilet/Commode Transfer(FIM): 5 Additional Short Term Goals: 1-Demonstrate ADL Tasks, 2-Verbalize Understanding , 3-ImproveStrength/Shamika 1=Demonstrate adherence to instructed precautions during ADL tasks. 2=Patient will verbalize/demonstrate understanding of assistive devices/ modifications for ADL. 3=Patient will improve strength/tolerance for activity to enable patient to perform ADL's. OT Shelter Goals Bull Chain Operator Goals Time Frame: Oct 10, 2016 Eating (FIM): 6 Eating (QC): 6 Groomin Oral Hygiene (QC): 6 Bathing(FIM): 5 Shower/Bathe Self (QC): 5 Upper Body Dressing(FIM): 6 Upper Body Dressing (QC): 6 Lower Body Dressing(FIM): 5 Lower Body Dressing (QC): 5 On/Off Footwear (QC): 5 Toileting(FIM): 6 Toileting Hygiene (QC): 6 Toilet/Commode Transfer(FIM): 6 Toilet/Commode Transfer (QC): 6 Shower Transfer(FIM): 5 Additional Goals: 1-Demonstrate ADL Tasks, 2-Verbalize Understanding, 3- ImproveStrength/Shamika 1=Demonstrate adherence to instructed precautions during ADL tasks. 2=Patient will verbalize/demonstrate understanding of assistive devices/ modifications for ADL. 3=Patient will improve strength/tolerance for activity to enable patient to perform ADL's. OT Education/Plan Problem List/Assessment Pt demonstrates decreased ADL functioning, strength, mobility, and activity tolerance. Pt to benefit from skilled OT intervention for ADL training, transfers, strengthening, and safety education to maximize level of function and allow safe return home. Discharge Recommendations Plan/Recommendations: Continue POC Treatment Plan/Plan of Care Patient would benefit from OT for education, treatment and training to promote independence in ADL's, mobility, safety and/or upper extremity function for ADL' s. Plan of Care: ADL Retraining, Functional Mobility, Group Exercise/Act as Ind, UE Funct Exercise/Act, UE Neuromus Re-Ed/Coord Treatment Duration: Oct 10, 2016 Frequency: At least 5-7 days/Wk (IRF) Estimated Hrs Per Day: 1.5 hours per day Agreement: Yes Rehab Potential: Good Time/GCodes Start Time: 14:30 Stop Time: 15:00 Total Time Billed (hr/min): 30 Billed Treatment Time 1 visit-EX 2 (30 min) ORA GLEASON Sep 19, 2016 15:12
[2016-09-19] MEDS ORDERED: PANTOPRAZOLE 40 MG (PROTONIX) TAB PO SCH ×2 (16:00→21:00)
[2016-09-19] MEDS ORDERED: SUCRALFATE 1 GM (CARAFATE) TAB PO SCH (16:00)
--- NOTE | 2016-09-19 16:51 | Physical Therapy Evaluation ---
PT Evaluation-General Medical Diagnosis Admission Date Sep 19, 2016 at 10:01 Medical Diagnosis: intractable right leg pain, hyponatremia, anemia Onset Date: Sep 15, 2016 Therapy Diagnosis Therapy Diagnosis: impaired mobility, strength, endurance Height/Weight Height (Feet): 5 Height (Inches): 7.00 Weight (Pounds): 166 Weight (Ounces): 5.0 Precautions Precautions/Isolations: Fall Prevention, Standard Precautions Referral Physician: Nasim Reason for Referral: Evaluation/Treatment Medical History Pertinent Medical History: Arthritis, GERD, HTN, Neuropathy, OA, Smoking Additional Medical History osteoporosis, bilateral knee replacements, appendectomy, eye surg Reviewed History: Yes Social History Home: Multilevel Current Living Status: Children (daughter and son-in-law) patient has a level entry and a chair lift Prior/Core FIM Prior Level of Function Functional [place] Measure 0=Not Assessed/NA 4=Minimal Assistance 1=Total Assistance 5=Supervision or Setup 2=Maximal Assistance 6=Modified [place] 3=Moderate Assistance 7=Complete [place] Bed Mobility: 6 Transfers (B,C,W/C) (FIM): 6 Gait: 6 patient has been using a rolling walker for ambulation PT Evaluation-Current Subjective Patient in bed pre tx, agrees to PT, has pain of 7/10 in her right shoulder hip and knee. Patient states she has a lot of swelling in her right leg and she does have bruising in anterior and especially posterior right knee. Pt/Family Goals to be independent at home Objective Patient Orientation: Person, Place, Situation ROM/Strength ROM Lower Extremities left lower extremity is WNL but the right is limited due to swelling and pain Strenght Lower Extremities Right not tested due to swelling and pain. Left hip flexion 3/5, knee flexion 3 +/5, knee extension 4/5, dorsiflexion (bilaterally) 4-/5 Neuromuscular (Tone, Coordination, Reflexes) WNL Sensory Vision: Wears Glasses Hearing: Functional Hand Dominance: Right Sensation Right Lower Extremit: Impaired Sensation Left Lower Extremity: Impaired Sensation Lower Extremities Patient has barely intact light touch sensation but she states she has decreased sensation from the knee down bilaterally. Transfers Functional [place] Measure 0=Not Assessed/NA 4=Minimal Assistance 1=Total Assistance 5=Supervision or Setup 2=Maximal Assistance 6=Modified [place] 3=Moderate Assistance 7=Complete IndependenceIRFPAI Quality Coding Scale 6 Independent with activity with or without an assistive device 5 Patient requires set up or clean up by helper. Patient completes activity by themselves 4 Supervision or touching assist (CGA). [place] provide cues , steadying assist 3 The helper provides less than half the effort to complete the activity 2 The helper provides more than half the effort to complete the activity 1 Dependent. The helper does all the effort to complete an activity 7 Patient refused to complete or attempt activity 9 The patient did not perform the activity before the current illness or injury 88 Not attempted due to Medical conditions or safety concerns Transfers (B, C, W/C) (FIM): 4 Scootin Rollin Roll Left to Right (QC): 4 Supine to/from Sit: 4 Sit to/from Stand: 4 Sit to Lying (QC): 4 Lying to Sitting/Side of Bed(Q: 4 Sit to Stand (QC): 4 Patient performs bed mobility with SBA except for supine to sit which is min assist. Sit to stand is CGA. She does need occasional cues for safety and hand placement. Gait Does the Patient Walk?: Yes Mode of Locomotion: Walk Anticipated Mode of Locomotion: Walk Gait (FIM): 4 Walk 10 feet (QC): 4 Walk 50 ft with 2 Turns(QC): 4 Walk 150 ft (QC): 4 Walking 10ft/uneven surface-QC: 4 Distance: 150'x2 Gait Level of Assist: 4 Gait Persons Needed: 1 Gait Assistive Device: FWW Comments/Gait Description Patient can ambulate 150' with a rolling walker with CGA (including 50' with at least 2 turns of 90 degrees and 10' over an uneven surface). Ambulation is slow and antalgic. Wheelchair Training Does the Pt Use a Wheelchair?: No Stairs Stairs (FIM): 1 #of Steps: 1 Level of Assist: 4 1 Step (curb) (QC): 4 4 Steps (QC): 88 Assistive Device: Walker 12 Steps (QC): 88 Patient can go up and down 1 step using a rolling walker with CGA, cues for safety and foot placement. Balance Sitting Static: Normal Sitting Dynamic: Normal Standing Static: Good Standing Dynamic: Good Assessment/Needs Patient has impaired mobility, strength, endurance, bruising in right knee and pain in right shoulder and hip and knee. Rehab Potential: Fair PT Short Term Goals Short Term Goals Time Frame: Sep 26, 2016 Transfers (B,C,W/C) (FIM): 5 Gait (FIM): 5 Gait Distance Comment: 200' Gait Level of Assist: 5 Gait Assistive Device: FWW PT Correction Goals Correction Goals PT Production Operations Manager Goals Time Frame: Oct 10, 2016 Transfers (B,C,W/C) (FIM): 6 Sit to Lying (QC): 6 Lying-Sitting on Side/Bed(QC): 6 Sit to Stand (QC): 6 Rollin Roll Left to Right (QC): 6 Chair/Sce-ls-Lyish Xfer(QC): 6 Car Transfer (QC): 4 Gait (FIM): 6 Distance: 300' Walk 10 feet (QC): 6 Walk 10ft-Uneven Surface(QC): 6 Walk 50ft with 2 Turns (QC): 6 Walk 150 ft (QC): 6 Gait Level of Assist: 6 Gait Assistive Device: FWW Stairs (FIM): 2 # of Steps: 4 1 Step (curb) (QC): 4 4 Steps (QC): 4 Stairs Level Of Assist: 4 PT Plan Problem List Problem List: Activity Tolerance, Functional Strength, Safety, Balance, Gait, Transfer, Bed Mobility, ROM Treatment/Plan Treatment Plan: Continue Plan of Care Treatment Plan: Bed Mobility, Education, Functional Activity Shamika, Functional Strength, Group Therapy, Gait, Safety, Therapeutic Exercise, Transfers Treatment Duration: Oct 10, 2016 Frequency: At least 5-7 days/Wk (IRF) Estimated Hrs Per Day: 1.5 hours per day Patient and/or Family Agrees t: Yes Safety Risks/Education Patient Education: Gait Training, Transfer Techniques, Steps, Correct Positioning, Safety Issues Teaching Recipient: Patient Teaching Methods: Demonstration, Discussion Response to Teaching: Reinforcement Needed Discharge Recommendations Plan Patient will perform bed mobility and transfer training, balance and endurance training, functional strengthening, stair training, gait training, and education , to improve functional mobility and independence at home. Therapy D/C Recommendations: Home w/ Family Support Time/GCodes Time In: 940 Time Out: 1645 Total Billed Treatment Time: 40 Total Billed Treatment 1 visit EVL 15' GT 15' FA 10' Patient was seen in 2 parts by physical therapy. Once from [id number] and the evaluation was completed from [id number] for a total of 40 min for the evaluation. GARETT CLEMENT PT Sep 19, 2016 16:51
[2016-09-19 16:56] VITALS: BP 159/87
[2016-09-19] MEDS: DICLOFENAC 1% GEL 100 GM (VOLTAREN) TUBE TOP SCH ×2 (17:00→20:51)
[2016-09-19] MEDS ORDERED: CALCIUM CARB + VIT D 600 MG (CALCARB + D) TAB PO SCH (17:00)
[2016-09-19] MEDS: CALCIUM CARB + VIT D 600 MG (CALCARB + D) TAB PO SCH (17:16)
[2016-09-19] MEDS: TROSPIUM 20 MG (SANCTURA) TAB PO SCH (18:29)
[2016-09-19] MEDS: POLYETHYLENE GLYCOL 17 GM (MIRALAX) PACK PO SCH (19:27)
[2016-09-19] MEDS: PANTOPRAZOLE 40 MG (PROTONIX) TAB PO SCH (20:49)
[2016-09-19] MEDS: VITAMIN D3 1,000 UNITS (CHOLECALCIFEROL) TABLET PO SCH (20:49)
[2016-09-19] MEDS: DOCUSATE SODIUM 100 MG (COLACE) CAP PO SCH (20:49)
[2016-09-19] MEDS: SENNA W/DOCUSATE (SENOKOT S) TABLET PO SCH (20:49)
[2016-09-19] MEDS ORDERED: DOCUSATE SODIUM 100 MG (COLACE) CAP PO SCH (21:00)
[2016-09-20 02:35] VITALS: BP 173/81
[2016-09-20] MEDS: SUCRALFATE 1 GM (CARAFATE) TAB PO SCH ×4 (05:31→21:18)
[2016-09-20] MEDS: TROSPIUM 20 MG (SANCTURA) TAB PO SCH ×2 (05:31→17:02)
[2016-09-20] MEDS: MULTIVIT W/MINERALS TAB (THERAGRAN M) PO SCH (07:18)
[2016-09-20] MEDS: CALCIUM CARB + VIT D 600 MG (CALCARB + D) TAB PO SCH ×2 (07:18→17:02)
[2016-09-20] MEDS: PANTOPRAZOLE 40 MG (PROTONIX) TAB PO SCH ×2 (07:18→21:20)
[2016-09-20] MEDS: SENNA W/DOCUSATE (SENOKOT S) TABLET PO SCH ×2 (08:42→21:20)
[2016-09-20] MEDS: VITAMIN D3 1,000 UNITS (CHOLECALCIFEROL) TABLET PO SCH ×2 (08:42→21:20)
[2016-09-20] MEDS: DOCUSATE SODIUM 100 MG (COLACE) CAP PO SCH ×2 (08:42→21:19)
--- NOTE | 2016-09-20 08:58 | Physical Therapy Daily Note ---
PT Daily Note-Current Subjective Patient in recliner pre tx, agrees to PT, has pain of 6/10 in right shoulder and hip. Appearance Patient in recliner post tx, has nurse call, phone, tray, all needs met. Mental Status Patient Orientation: Normal For Age Transfers Functional [place] Measure 0=Not Assessed/NA 4=Minimal Assistance 1=Total Assistance 5=Supervision or Setup 2=Maximal Assistance 6=Modified [place] 3=Moderate Assistance 7=Complete IndependenceIRFPAI Quality Coding Scale 6 Independent with activity with or without an assistive device 5 Patient requires set up or clean up by helper. Patient completes activity by themselves 4 Supervision or touching assist (CGA). [place] provide cues , steadying assist 3 The helper provides less than half the effort to complete the activity 2 The helper provides more than half the effort to complete the activity 1 Dependent. The helper does all the effort to complete an activity 7 Patient refused to complete or attempt activity 9 The patient did not perform the activity before the current illness or injury 88 Not attempted due to Medical conditions or safety concerns Transfers (B, C, W/C) (FIM): 4 Sit to/from Stand: 4 Patient needs min assist to stand from low surfaces. Gait Training Gait (FIM): 5 Distance: 150'x2 Gait Level of Assist: 5 Gait Assistive Device: FWW slow, antalgic Exercises Standing: Hip Abduction, Heel/toe raises, Mini squats Standing Reps: 20 Treatments transfers, ambulation, functional strengthening Assessment Current Status: Fair Progress improving endurance PT Short Term Goals Short Term Goals Time Frame: Sep 26, 2016 Transfers (B,C,W/C) (FIM): 5 Gait (FIM): 5 Gait Distance Comment: 200' Gait Level of Assist: 5 Gait Assistive Device: FWW PT Mcfp Goals Vending Machine Repairer Goals PT Vending Machine Repairer Goals Time Frame: Oct 10, 2016 Transfers (B,C,W/C) (FIM): 6 Sit to Lying (QC): 6 Lying-Sitting on Side/Bed(QC): 6 Sit to Stand (QC): 6 Rollin Roll Left to Right (QC): 6 Chair/Nnu-rd-[place] Xfer(QC): 6 Car Transfer (QC): 4 Gait (FIM): 6 Distance: 300' Walk 10 feet (QC): 6 Walk 10ft-Uneven Surface(QC): 6 Walk 50ft with 2 Turns (QC): 6 Walk 150 ft (QC): 6 Gait Level of Assist: 6 Gait Assistive Device: FWW Stairs (FIM): 2 # of Steps: 4 1 Step (curb) (QC): 4 4 Steps (QC): 4 Stairs Level Of Assist: 4 PT Plan Problem List Problem List: Activity Tolerance, Functional Strength, Safety, Balance, Gait, Transfer, Bed Mobility, ROM Treatment/Plan Treatment Plan: Continue Plan of Care Treatment Plan: Bed Mobility, Education, Functional Activity Shamika, Functional Strength, Group Therapy, Gait, Safety, Therapeutic Exercise, Transfers Treatment Duration: Oct 10, 2016 Frequency: At least 5-7 days/Wk (IRF) Estimated Hrs Per Day: 1.5 hours per day Patient and/or Family Agrees t: Yes Safety Risks/Education Patient Education: Gait Training, Transfer Techniques, Correct Positioning, Safety Issues Teaching Recipient: Patient Teaching Methods: Demonstration, Discussion Response to Teaching: Reinforcement Needed Time/GCodes Time In: 830 Time Out: 900 Total Billed Treatment Time: 30 Total Billed Treatment 1 visit EX 15' GT 15' GARETT CLEMENT PT Sep 20, 2016 08:58
[2016-09-20] MEDS: DICLOFENAC 1% GEL 100 GM (VOLTAREN) TUBE TOP SCH ×4 (09:02→21:21)
[2016-09-20] MEDS: FUROSEMIDE 20 MG (LASIX) TAB PO PRN (18:22)
[2016-09-20 18:27] VITALS: BP 151/80
[2016-09-20] MEDS: KCL 10 MEQ TAB (MICRO K) PO PRN (21:20)
[2016-09-20] MEDS: POLYETHYLENE GLYCOL 17 GM (MIRALAX) PACK PO SCH (21:20)
--- NOTE | 2016-09-21 00:47 | CONSULTATION REPORT ---
DATE OF CONSULTATION: 09/20/2016 ATTENDING PRIMARY CARE PHYSICIAN: Dr. Silva Ms. Fernando Clement is an 81-year-old female known to us. We had seen her in December 2015 for abdominal distention and pain. She had reported that she had had these symptoms before 2011 in [place], [place] and had improved with conservative management. She has had previous abdominal surgeries including abdominal hysterectomy, as well as anterior approach for open reduction and internal fixation of the lumbar vertebrae. She continues to have issues with degenerative joint disease including bilateral shoulders; however, was admitted to an acute bed for right hip and leg pain, as well as anemia requiring 2 units of blood transfusion. Upon further questioning, approximately 10 days before the admission, she was also found anemic with a hemoglobin in the 8 range requiring another unit of blood transfusion. She had had a history of peptic ulcer disease, as well as gastroesophageal reflux disease. On 09/17/2016 the patient underwent an EGD and colonoscopy. EGD showed a small 2 mm gastric antral ulcer with an overlying fibrin clot and no active bleeding. There was a larger proximal pyloric ulcer, approximately 1 cm in size, again with an overlying clot and no active bleeding. She was started on Protonix, as well as Carafate and her hemoglobin stabilized. Due to her severe degenerative joint disease and inability to proceed with activities of daily living, she was admitted to inpatient rehabilitation. In rehab, she has done well. She does not report any abdominal pain, as well as no clinical signs of bleeding. She is slightly anemic with a hemoglobin of 8.1. PAST MEDICAL HISTORY: 1. Neuropathy. 2. Osteoarthritis. 3. Gastroesophageal reflux disease. 4. Hypercholesterolemia. 5. Fibromyalgia. 6. Peptic ulcer disease. PAST SURGERIES: 1. Open appendectomy. 2. Open partial hysterectomy in 1962. 3. Anterior lumbar ORIF 2002. Posterior. 4. Lumbar ORIF x6. 5. Bilateral total knee arthroplasty. 6. Right breast biopsy in the which was benign. ALLERGIES: 1. Penicillin. 2. Sulfa. MEDICATIONS: 1. Aspirin 81 mg daily. 2. Prolia injection b.i.d. 3. Simvastatin 40 mg daily. 4. Protonix 40 mg daily. 5. Naproxen daily. 6. Oxycodone 20 mg b.i.d. SOCIAL HISTORY: Negative smoke. Negative alcohol. VITAL SIGNS: Temperature 96.9, blood pressure 151/80, pulse 110, respirations 16, pulse oximetry 100% on room air. REVIEW OF SYSTEMS: This is a well nourished female currently in no acute distress. She is not experiencing any shortness of breath or difficulty breathing. No chest pain, palpitations, diaphoresis. No nausea, vomiting, hematemesis, or coffee-ground emesis. She has had 1 bowel movement and she does not recall any red blood per rectum nor any dark tarry stools. No fever, chills, no recent inadvertent weight loss. PHYSICAL EXAMINATION: CHEST: Good breath sounds bilaterally. Clear. HEART: Regular. No murmurs. EXTREMITIES: No lower extremity edema. Negative Elvia sign. HEENT: No scleral icterus. No cervical lymphadenopathy. ABDOMEN: Soft, nontender, nondistended. SKIN: Warm and dry. ASSESSMENT AND PLAN: This is an 81-year-old female with severe degenerative joint disease most likely secondary to pain medication as well as nonsteroidal anti-inflammatories with the findings of antral and duodenal ulcer with no active bleeding. We will recommend continued medical management with a PPI acid power plant technician, as well as Carafate 1 gram q.i.d. for the next 2 weeks and then also in a p.r.n. basis. We will continue to monitor her hemoglobin. Job ID: [id number] Dictated Date: 09/20/2016 19:40:00 Addressograph Operator Date: 09/21/2016 00:35:45/jesusita
[2016-09-21] MEDS: PANTOPRAZOLE 40 MG (PROTONIX) TAB PO SCH ×2 (05:51→21:06)
[2016-09-21] MEDS: SUCRALFATE 1 GM (CARAFATE) TAB PO SCH ×4 (05:51→21:06)
[2016-09-21 06:00] VITALS: BP 156/78
[2016-09-21] MEDS: MULTIVIT W/MINERALS TAB (THERAGRAN M) PO SCH (06:30)
[2016-09-21] MEDS: TROSPIUM 20 MG (SANCTURA) TAB PO SCH ×2 (06:30→16:54)
[2016-09-21] MEDS: CALCIUM CARB + VIT D 600 MG (CALCARB + D) TAB PO SCH ×2 (06:30→16:54)
[2016-09-21] MEDS: KCL 10 MEQ TAB (MICRO K) PO PRN (08:28)
[2016-09-21] MEDS: SENNA W/DOCUSATE (SENOKOT S) TABLET PO SCH ×2 (08:28→21:06)
[2016-09-21] MEDS: VITAMIN D3 1,000 UNITS (CHOLECALCIFEROL) TABLET PO SCH ×2 (08:28→21:06)
[2016-09-21] MEDS: DICLOFENAC 1% GEL 100 GM (VOLTAREN) TUBE TOP SCH ×4 (08:28→21:06)
[2016-09-21] MEDS: DOCUSATE SODIUM 100 MG (COLACE) CAP PO SCH ×2 (08:28→21:06)
[2016-09-21] MEDS: FUROSEMIDE 20 MG (LASIX) TAB PO PRN (08:28)
[2016-09-21] MEDS ORDERED: fentaNYL PATCH 25 MCG (DURAGESIC) TD SCH (10:15)
--- NOTE | 2016-09-21 10:20 | Progress Note (SOAP) ---
Subjective Date Seen by Provider: Sep 21, 2016 Time Seen by Provider: 10:00 Subjective/Events-last exam doing ok. still has right leg edema and pain. tolerating diet. Objective Exam Vital Signs Date Time Temp Pulse Resp B/P (MAP) Pulse Ox O2 Delivery O2 Flow Rate FiO2 09/21/16 09:05 Room Air 09/21/16 06:00 97.8 90 16 156/78 100 Room Air 09/20/16 21:00 Room Air 09/20/16 18:27 96.9 110 16 151/80 100 Room Air I & O 09/21/16 07:00 Intake Total 1000 ml Balance 1000 ml Capillary Refill : General Appearance: No Apparent Distress HEENT: PERRL/EOMI Neck: Full Range of Motion Respiratory: Chest Non Tender, Lungs Clear, Normal Breath Sounds Cardiovascular: Regular Rate, Rhythm Gastrointestinal: normal bowel sounds, non tender, soft Extremity: Normal Capillary Refill, Pedal Edema Neurologic/Psychiatric: Alert, Oriented x3 Skin: Normal Color Lymphatic: No Adenopathy Assessment/Plan Assessment/Plan Assess & Plan/Chief Complaint DJD with right LE edema and hx bleeding gastric ulcer. compression stockings. trial of fentanyl patch while in rehab Clinical Quality Measures DVT/VTE Risk/Contraindication: Risk Factor Score Per Nursin RFS Level Per Nursing on Admit: 4+=Very High ABIGAIL TORREZ MD Sep 21, 2016 10:20
[2016-09-21 18:20] VITALS: BP 129/79
[2016-09-21] MEDS: POLYETHYLENE GLYCOL 17 GM (MIRALAX) PACK PO SCH (21:05)
[2016-09-22 05:10] VITALS: BP 162/81
[2016-09-22] MEDS: TROSPIUM 20 MG (SANCTURA) TAB PO SCH ×2 (06:07→16:43)
[2016-09-22] MEDS: PANTOPRAZOLE 40 MG (PROTONIX) TAB PO SCH ×2 (06:07→20:23)
[2016-09-22] MEDS: MULTIVIT W/MINERALS TAB (THERAGRAN M) PO SCH (06:07)
[2016-09-22] MEDS: SUCRALFATE 1 GM (CARAFATE) TAB PO SCH ×4 (06:07→20:23)
[2016-09-22] MEDS: CALCIUM CARB + VIT D 600 MG (CALCARB + D) TAB PO SCH ×2 (06:07→16:43)
[2016-09-22] MEDS: DOCUSATE SODIUM 100 MG (COLACE) CAP PO SCH ×2 (08:36→20:23)
[2016-09-22] MEDS: SENNA W/DOCUSATE (SENOKOT S) TABLET PO SCH ×2 (08:36→20:23)
[2016-09-22] MEDS: VITAMIN D3 1,000 UNITS (CHOLECALCIFEROL) TABLET PO SCH ×2 (08:37→20:23)
[2016-09-22] MEDS: DICLOFENAC 1% GEL 100 GM (VOLTAREN) TUBE TOP SCH ×4 (08:37→20:23)
--- NOTE | 2016-09-22 10:13 | Occupational Ther Daily Note ---
OT Current Status-Daily Note Subjective Pt in bed, agrees to treatment. Pt reports 8/10 pain in shoulder and all down her right side. Pt requests pain medication, RN notified. Mental Status/Objective Functional [place] Measure 0=Not Assessed/NA 4=Minimal Assistance 1=Total Assistance 5=Supervision or Setup 2=Maximal Assistance 6=Modified [place] 3=Moderate Assistance 7=Complete [place] ADL-Treatment Pt requests shower this morning. Supine to sit with supervision. Sit to stand with minimal assistance. Gait to restroom with 4WW. Transfer to walk in shower with CGA using grab bars for balance and safety. Pt doffed shirt with minimal assistance and cues for technique. Pt used kindergarten teacher to doff underwear, pants and socks. Seated bathing completed using hand held shower. Pt able to wash upper body, christin area, and bilateral upper legs with SBA. Pt weight shifted side to side to wash buttocks rather than standing. Assist required for lower legs and feet. Pt donned bra with assist to fasten in the back. Don pullover shirt with minimal assistance to warehouse order puller head. Pt required assist to don underwear. Pt used kindergarten teacher to start pants over feet. Stood with minimal assistance for pant hike. Assist required to button pants. Pt required assist to don shoes. Pt is limited by shoulder pain today. Pt combed hair with SBA and increased time. Pt transferred to bed with assist to raise LE into bed. Pt resting in bed with needs met after session. Functional [place] Measure 0=Not Assessed/NA 4=Minimal Assistance 1=Total Assistance 5=Supervision or Setup 2=Maximal Assistance 6=Modified [place] 3=Moderate Assistance 7=Complete IndependenceIRFPAI Quality Coding Scale 6 Independent with activity with or without an assistive device 5 Patient requires set up or clean up by helper. Patient completes activity by themselves 4 Supervision or touching assist (CGA). [place] provide cues , steadying assist 3 The helper provides less than half the effort to complete the activity 2 The helper provides more than half the effort to complete the activity 1 Dependent. The helper does all the effort to complete an activity 7 Patient refused to complete or attempt activity 9 The patient did not perform the activity before the current illness or injury 88 Not attempted due to Medical conditions or safety concerns Grooming (FIM): 5 Bathing (FIM): 4 Bathing Location: L Arm, R Arm, L Upper Leg, R Upper Leg, Chest, Abdomen, Buttocks, Perineal Area Upper Body (FIM): 4 Upper Body Dressing (QC): 3 Lower Body Dressing (FIM): 3 Shower Transfer(FIM): 4 OT Short Term Goals Short Term Goals Time Frame: Sep 26, 2016 Bathing(FIM): 4 Upper Body Dressing(FIM): 5 Lower Body Dressing(FIM): 4 Transfers (B,C,W/C) (FIM): 5 Toilet/Commode Transfer(FIM): 5 Additional Short Term Goals: 1-Demonstrate ADL Tasks, 2-Verbalize Understanding , 3-ImproveStrength/Shamika 1=Demonstrate adherence to instructed precautions during ADL tasks. 2=Patient will verbalize/demonstrate understanding of assistive devices/ modifications for ADL. 3=Patient will improve strength/tolerance for activity to enable patient to perform ADL's. OT Usp Goals Usp Goals Time Frame: Oct 10, 2016 Eating (FIM): 6 Eating (QC): 6 Groomin Oral Hygiene (QC): 6 Bathing(FIM): 5 Shower/Bathe Self (QC): 5 Upper Body Dressing(FIM): 6 Upper Body Dressing (QC): 6 Lower Body Dressing(FIM): 5 Lower Body Dressing (QC): 5 On/Off Footwear (QC): 5 Toileting(FIM): 6 Toileting Hygiene (QC): 6 Toilet/Commode Transfer(FIM): 6 Toilet/Commode Transfer (QC): 6 Shower Transfer(FIM): 5 Additional Goals: 1-Demonstrate ADL Tasks, 2-Verbalize Understanding, 3- ImproveStrength/Shamika 1=Demonstrate adherence to instructed precautions during ADL tasks. 2=Patient will verbalize/demonstrate understanding of assistive devices/ modifications for ADL. 3=Patient will improve strength/tolerance for activity to enable patient to perform ADL's. OT Education/Plan Problem List/Assessment Pt demonstrates decreased ADL functioning, strength, mobility, and activity tolerance. Pt to benefit from skilled OT intervention for ADL training, transfers, strengthening, and safety education to maximize level of function and allow safe return home. Discharge Recommendations Plan/Recommendations: Continue POC Treatment Plan/Plan of Care Patient would benefit from OT for education, treatment and training to promote independence in ADL's, mobility, safety and/or upper extremity function for ADL' s. Plan of Care: ADL Retraining, Functional Mobility, Group Exercise/Act as Ind, UE Funct Exercise/Act, UE Neuromus Re-Ed/Coord Treatment Duration: Oct 10, 2016 Frequency: At least 5-7 days/Wk (IRF) Estimated Hrs Per Day: 1.5 hours per day Agreement: Yes Rehab Potential: Fair Time/GCodes Start Time: 09:00 Stop Time: 10:00 Total Time Billed (hr/min): 60 Billed Treatment Time 1 visit, ADLx4(60minutes) SU GOMEZ OT Sep 22, 2016 10:13
--- NOTE | 2016-09-22 12:03 | Physical Therapy Daily Note ---
PT Daily Note-Current Subjective Pt. explains her long history of arthritis and her recent issues. Pt. is motivated and wants to continue to stay active and remain at home with her daughter etc Pain Numeric Pain Scale: 7 Location: Right Location Body Site: Hip (and shoulder) Pain Description: Stabbing Comment: states she is trying to replace oxycodone with fentanyl patch, not as efect Mental Status Patient Orientation: Normal For Age Transfers Functional [place] Measure 0=Not Assessed/NA 4=Minimal Assistance 1=Total Assistance 5=Supervision or Setup 2=Maximal Assistance 6=Modified [place] 3=Moderate Assistance 7=Complete IndependenceIRFPAI Quality Coding Scale 6 Independent with activity with or without an assistive device 5 Patient requires set up or clean up by helper. Patient completes activity by themselves 4 Supervision or touching assist (CGA). [place] provide cues , steadying assist 3 The helper provides less than half the effort to complete the activity 2 The helper provides more than half the effort to complete the activity 1 Dependent. The helper does all the effort to complete an activity 7 Patient refused to complete or attempt activity 9 The patient did not perform the activity before the current illness or injury 88 Not attempted due to Medical conditions or safety concerns Transfers (B, C, W/C) (FIM): 5 Scootin Rollin Supine to/from Sit: 5 Sit to/from Stand: 5 Bed to/from Chair: 5 Gait Training Does the Patient Walk?: Yes Gait (FIM): 5 Distance (FIM): 3=150 ft (175x2) Gait Level of Assist: 5 Gait Persons Needed: 1 Gait Assistive Device: Walker 4 Wheeled pt. routinely uses 4WW and has good safety practices Exercises Supine Ex: Bridging, Ankle pumps, Quad Set, Rolling, Glut sets, Heel Slides, Short Arc Quads, Scooting, Straight leg raise (asasist), Hip abd/add Supine Reps: 12 NuStep Minutes: 10 NuStep Workload: 2 (noo hnads) Treatments toileted managing pants and clean up indep, washed hands as well indep Assessment Current Status: Good Progress pain and edema R shoulder and R hip cont to limit funct PT Short Term Goals Short Term Goals Time Frame: Sep 26, 2016 Transfers (B,C,W/C) (FIM): 5 Gait (FIM): 5 Gait Distance Comment: 200' Gait Level of Assist: 5 Gait Assistive Device: FWW PT Prison Goals Braider Operator Goals PT Braider Operator Goals Time Frame: Oct 10, 2016 Transfers (B,C,W/C) (FIM): 6 Sit to Lying (QC): 6 Lying-Sitting on Side/Bed(QC): 6 Sit to Stand (QC): 6 Rollin Roll Left to Right (QC): 6 Chair/Csx-no-Vlsve Xfer(QC): 6 Car Transfer (QC): 4 Gait (FIM): 6 Distance: 300' Walk 10 feet (QC): 6 Walk 10ft-Uneven Surface(QC): 6 Walk 50ft with 2 Turns (QC): 6 Walk 150 ft (QC): 6 Gait Level of Assist: 6 Gait Assistive Device: FWW Stairs (FIM): 2 # of Steps: 4 1 Step (curb) (QC): 4 4 Steps (QC): 4 Stairs Level Of Assist: 4 PT Plan Treatment/Plan Treatment Plan: Continue Plan of Care Treatment Plan: Bed Mobility, Education, Functional Activity Shamika, Functional Strength, Group Therapy, Gait, Safety, Therapeutic Exercise, Transfers Treatment Duration: Oct 10, 2016 Frequency: At least 5-7 days/Wk (IRF) Estimated Hrs Per Day: 1.5 hours per day Patient and/or Family Agrees t: Yes Safety Risks/Education Patient Education: Gait Training, Transfer Techniques, Correct Positioning, Disease Process, Safety Issues Teaching Recipient: Patient Teaching Methods: Demonstration, Discussion Response to Teaching: Verbalize Understanding, Return Demonstration, Reinforcement Needed Time/GCodes Time In: 1100 Time Out: 1200 Total Billed Treatment Time: 60 Total Billed Treatment 1,GT20m,FA15m,EX30m G Codes Necessary: JULIANNE Inman ENVIRONMENTAL SCIENCE PROGRAM DIRECTOR Sep 22, 2016 12:03
--- NOTE | 2016-09-22 14:40 | Therapy Group Daily Note ---
Therapy Daily Group Note Patient Education Topic Other List Below (Pain) Exercises LE Seated Exercise, UE Exercise, Other (breathing) Other/Notes Pt ambulated to OT/PT group with CGA using 4WW. OT/PT group consisted of introductions (name, place living, what do you do to relax), speaker for pain education, breathing techniques and UE/LE seated exercises. Pt was attentive throughout group. Contributed to discussions by giving personal examples of how to work through pain. Pt was appropriate with introductions and interactions with other group members. Pt verbalized understanding of pain education. Pt was able to complete breathing techniques appropriately. Able to complete LE exercises. Decreased AROM with B shldrs, modified UE exercises completed. After therapy, pt lying down with visitor present in room. Call light/phone in reach. All needs met in room. Start Time: 13:00 Stop Time: 14:05 Total Billed Treatment Time: 65 Total Billed Treatment 1-GRP ORA GLEASON Sep 22, 2016 14:40
[2016-09-22 17:32] VITALS: BP 160/65
--- NOTE | 2016-09-22 19:27 | Progress Note (SOAP) ---
Subjective Date Seen by Provider: Sep 22, 2016 Time Seen by Provider: 19:20 Subjective/Events-last exam doing ok. slightly better pain control with fentanyl patch. tolerating diet. no clinical bleed. Objective Exam Vital Signs Date Time Temp Pulse Resp B/P (MAP) Pulse Ox O2 Delivery O2 Flow Rate FiO2 09/22/16 17:32 99.1 100 20 160/65 100 Room Air 09/22/16 09:00 Room Air 09/22/16 05:10 97.5 100 16 162/81 100 Room Air 09/21/16 20:11 Room Air I & O 09/22/16 07:00 Intake Total 1240 ml Balance 1240 ml Capillary Refill : General Appearance: No Apparent Distress HEENT: PERRL/EOMI Neck: Full Range of Motion Respiratory: Chest Non Tender, Lungs Clear, Normal Breath Sounds Cardiovascular: Regular Rate, Rhythm Gastrointestinal: normal bowel sounds, non tender, soft Extremity: Normal Capillary Refill, Pedal Edema Neurologic/Psychiatric: Alert, Oriented x3 Skin: Normal Color Lymphatic: No Adenopathy Assessment/Plan Assessment/Plan Assess & Plan/Chief Complaint DJD with right LE edema and hx bleeding gastric ulcer. compression stockings. trial of fentanyl patch while in rehab Clinical Quality Measures DVT/VTE Risk/Contraindication: Risk Factor Score Per Nursin RFS Level Per Nursing on Admit: 4+=Very High ABIGAIL TORREZ MD Sep 22, 2016 19:27
[2016-09-22] MEDS: POLYETHYLENE GLYCOL 17 GM (MIRALAX) PACK PO SCH (20:23)
[2016-09-22] MEDS ORDERED: fentaNYL PATCH 50 MCG (DURAGESIC) ONE (20:55)
[2016-09-22] MEDS: fentaNYL PATCH 50 MCG (DURAGESIC) TOP SCH (21:45)
--- NOTE | 2016-09-22 22:34 | Individualized Plan of Care ---
Individualized Plan of Care Rehab Nursing IPOC Order Admission Date Sep 19, 2016 at 10:01 Current Orders Orders Pt Mobility Goal Status (09/18/16 ) Pt Mobility D/C Status (09/18/16 ) Patient Visit (09/22/16 ) Gait Training, Ea 15 Min (09/22/16 ) Functional Activities, Ea 15 (09/22/16 ) Exercise Therap, Ea 15 Min (09/22/16 ) Us Right Low Ext Nonvasc [id number] (09/23/16 07:00) Fentanyl Patch (Duragesic Patch) (09/24/16 10:15) Patch Removal (Patch Removal) (09/24/16 10:14) Fentanyl Patch (Duragesic Patch) (09/22/16 20:55) Fentanyl Patch (Duragesic Patch) (09/22/16 21:45) Rehab Nursing Orders: Diseage Management, Edu in Press Rel Techn, Hydration Management, Nutrition Management, Pain Management Other Nursing Orders: Monitor for constipation and urinary retention PT IPOC Problem List: Activity Tolerance, Functional Strength, Safety, Balance, Gait, Transfer, Bed Mobility, ROM Treatment Plan: Continue Plan of Care Bed Mobility, Education, Functional Activity Shamika, Functional Strength, Group Therapy, Gait, Safety, Therapeutic Exercise, Transfers Treatment Duration: Oct 10, 2016 Frequency: At least 5-7 days/Wk (IRF) Estimated Hrs Per Day: 1.5 hours per day OT IPOC Problems: Decreased Activ Tolerance, Decreased UE Strength, Dependent Transfers , Impaired Coordination, Impaired Funct Balance, Impaired Self-Care Skills OT Problems Pt demonstrates decreased ADL functioning, strength, mobility, and activity tolerance. Pt to benefit from skilled OT intervention for ADL training, transfers, strengthening, and safety education to maximize level of function and allow safe return home. Plan of Care: ADL Retraining, Functional Mobility, Group Exercise/Act as Ind, UE Funct Exercise/Act, UE Neuromus Re-Ed/Coord Treatment Duration: Oct 10, 2016 Frequency: At least 5-7 days/Wk (IRF) Estimated Hrs Per Day: 1.[address] IPOC Speech Therapy Treatment Plan: Discontinue ST Frequency: Modified Program (IRF) Estimated Hrs Per Day: .25 hour per day (The patient will not receive skilled speech pathology treatment at this time.) Physician IPOC Medical Issues being managed closely and that require the 24 hour availability of a physician:Postop anmeia.Pain management for flare of OA pain involving multiple joints Gastic ulcers being followed by DR TORREZ General Surgery Peripheral neuropathy Medical Issues: DVT Prophylaxis, Falls Precautions, Fluid/Electrolyte/ Nutrition Balance, Infection Protection, Pain Management, Wound Care, Other ( List) (as per above) Brief Synthesis of Preadmission Screen, Post-Admission Evaluation, and Therapy Evaluations:82 yo female with flare of OA involving multiple joints s/p fall with rt leg bruising and pain and tenderness and swelling to have Doppler tomorrow to further eval.Has had recent EGD and Colonoscopy revealing non bleeding gastric ulcer being treated medically by DR TORREZ General Surgery.Had been Modified Independent with a rollator walker prior to this for the most part and recently moved to [place] to be near her daughter with whom she currently lives.Referred to IRU due to a decline in functional [place] with a goal of return home with daughter at [facility] Medical Prognosis: good Anticipated Length of Stay: 10/10/16 Rehab Goals Modified Independent for adls and mobiliy skills Patient has had a transfusion on day of admission to IRU Will recheck H&H See ellen Anticipated discharge destinat: Home with family with [facility] BERE BEAN MD Sep 22, 2016 22:34
--- NOTE | 2016-09-22 22:44 | PM & R (SOAP) Progress Note ---
Subjective Time Seen by Provider: 21:55 Subjective/Events-last exam Patient was seen in her room this evening Appreciate DR Yan notes and orders Patient Rt calf swollen and tender to touch Doppler ordered for am to assess Patient SBA for transfers Patient requests f/u Lab works/p transfusion PRBCS Review of Systems Musculoskeletal: leg pain Objective Exam Last Set of Vital Signs Vital Signs Date Time Temp Pulse Resp B/P (MAP) Pulse Ox O2 Delivery O2 Flow Rate FiO2 09/22/16 17:32 99.1 100 20 160/65 100 Room Air Capillary Refill : I&O Intake and Output 09/22/16 00:00 Intake Total 1100 ml Balance 1100 ml Intake Oral 1100 ml # Voids 11 # Bowel Movements 1 General: Alert, Oriented X3, Cooperative, No Acute Distress HEENT: Atraumatic, PERRLA, EOMI, Mucous Memb Moist/[place] Neck: Supple, No JVD Lungs: Clear to Auscultation Heart: Regular Rate Abdomen: Normal Bowel Sounds, Soft, No Tenderness Extremities: Other (plus edema rt calf associated with tenderness and ecchymosis) Skin: Other (as per above) Neuro: Other (Decreased sensation to light touch both feet Impaired strength rt LE due to pain and swelling rt calf OA changes both PIPS of hands) Psych/Mental Status: Mental Status NL Assessment/Plan Assessment 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 Team Conference 09/24/16 BERE BEAN MD Sep 22, 2016 22:44
[2016-09-23 04:18] VITALS: BP 168/84
[2016-09-23] MEDS: PANTOPRAZOLE 40 MG (PROTONIX) TAB PO SCH ×2 (05:37→20:14)
[2016-09-23] MEDS: CALCIUM CARB + VIT D 600 MG (CALCARB + D) TAB PO SCH ×2 (05:37→17:40)
[2016-09-23] MEDS: SUCRALFATE 1 GM (CARAFATE) TAB PO SCH ×4 (05:37→20:14)
[2016-09-23] MEDS: TROSPIUM 20 MG (SANCTURA) TAB PO SCH ×2 (05:37→17:40)
[2016-09-23] MEDS: MULTIVIT W/MINERALS TAB (THERAGRAN M) PO SCH (05:37)
[2016-09-23 07:35] LABS: BASOPHILS % (AUTO) 0 % (0-10); EOSINOPHILS # (AUTO) 0.1 10^3/uL (0.0-0.3); EOSINOPHILS % (AUTO) 1 % (0-10); LYMPHOCYTES # (AUTO) 0.8 X 10^3 (1.0-4.0); LYMPHOCYTES % (AUTO) 10 % (12-44); MEAN CORPUSCULAR HEMOGLOBIN 30 PG (25-34); MEAN CORPUSCULAR HGB CONC 33 G/DL (32-36); MEAN CORPUSCULAR VOLUME 91 FL (80-99); MEAN PLATELET VOLUME 8.5 FL (7.4-10.4); MONOCYTES # (AUTO) 0.6 X 10^3 (0.0-1.0); MONOCYTES % (AUTO) 8 % (0-12); NEUTROPHILS # (AUTO) 6.8 X 10^3 (1.8-7.8); NEUTROPHILS % (AUTO) 81 % (42-75); PLATELET COUNT 302 10^3/uL (130-400); RED BLOOD COUNT 3.24 10^6/uL (4.35-5.85); RED CELL DISTRIBUTION WIDTH 17.2 % (10.0-14.5); WHITE BLOOD COUNT 8.3 10^3/uL (4.3-11.0)
[2016-09-23] MEDS: KCL 10 MEQ TAB (MICRO K) PO PRN (07:36)
[2016-09-23] MEDS: SENNA W/DOCUSATE (SENOKOT S) TABLET PO SCH ×2 (07:36→20:14)
[2016-09-23] MEDS: FUROSEMIDE 20 MG (LASIX) TAB PO PRN (07:36)
[2016-09-23] MEDS: DOCUSATE SODIUM 100 MG (COLACE) CAP PO SCH ×2 (07:36→20:14)
[2016-09-23] MEDS: VITAMIN D3 1,000 UNITS (CHOLECALCIFEROL) TABLET PO SCH ×2 (07:36→20:14)
[2016-09-23] MEDS: DICLOFENAC 1% GEL 100 GM (VOLTAREN) TUBE TOP SCH ×4 (07:41→20:16)
[2016-09-23 07:53] LABS: ALANINE AMINOTRANSFERASE 14 U/L (0-55); ALBUMIN 2.5 GM/DL (3.2-4.5); ANION GAP 9 MMOL/L (5-14); ASPARTATE AMINO TRANSFERASE 15 U/L (5-34); BILIRUBIN,TOTAL 1.1 MG/DL (0.1-1.0); BLOOD UREA NITROGEN 12 MG/DL (7-18); BUN/CREATININE RATIO 20; CALCIUM 7.5 MG/DL (8.5-10.1); CARBON DIOXIDE 23 MMOL/L (21-32); CHLORIDE 99 MMOL/L (98-107); CREATININE SERUM 0.59 MG/DL (0.60-1.30); GFR ESTIMATED > 60; GLUCOSE 115 MG/DL (70-105); POTASSIUM 3.5 MMOL/L (3.6-5.0); SODIUM 131 MMOL/L (135-145); TOTAL PROTEIN 5.4 GM/DL (6.4-8.2)
[2016-09-23] MEDS ORDERED: KCL 20 MEQ TAB (K-DUR) PO NR (09:30)
--- NOTE | 2016-09-23 11:48 | Diagnostic Imaging Report ---
PROCEDURE: US right lower extremity venous. TECHNIQUE: Multiple real-time grayscale images were obtained over the right lower extremity in various projections. Additional duplex Doppler and color Doppler images were also obtained. INDICATION: Right leg pain and swelling. FINDINGS: The right common femoral, superficial femoral and popliteal veins demonstrate normal response to compression, augmentation, and Valsalva. There are no right lower extremity fluid collections or masses. IMPRESSION: No evidence of deep vein thrombosis in the right lower extremity. Dictated by: Dictated on workstation # [id number]
--- NOTE | 2016-09-23 12:14 | Physical Therapy Daily Note ---
PT Daily Note-Current Subjective Pt sitting in recliner upon arrival. Pt reports pain of 6-7/10 in R hip & shoulder. Pt agrees to PT. Pain Numeric Pain Scale: 7 Location: Right Location Body Site: Hip Pain Description: Ache, Tightness Mental Status Patient Orientation: Person, Place, Time, Situation Attachments: Other-See Comments (Neck brace) Transfers Functional [place] Measure 0=Not Assessed/NA 4=Minimal Assistance 1=Total Assistance 5=Supervision or Setup 2=Maximal Assistance 6=Modified [place] 3=Moderate Assistance 7=Complete IndependenceIRFPAI Quality Coding Scale 6 Independent with activity with or without an assistive device 5 Patient requires set up or clean up by helper. Patient completes activity by themselves 4 Supervision or touching assist (CGA). [place] provide cues , steadying assist 3 The helper provides less than half the effort to complete the activity 2 The helper provides more than half the effort to complete the activity 1 Dependent. The helper does all the effort to complete an activity 7 Patient refused to complete or attempt activity 9 The patient did not perform the activity before the current illness or injury 88 Not attempted due to Medical conditions or safety concerns Scootin Rollin Roll Left to Right (QC): 5 Supine to/from Sit: 5 Sit to/from Stand: 6 Sit to Lying (QC): 5 Sit to Stand (QC): 6 Weight Bearing Weight Bearing Restriction: Full Weight Bearing Location Restriction: LE Bilateral Gait Training Does the Patient Walk?: Yes Distance (FIM): 3=150 ft Distance: 200' Walk 10 feet (QC): 6 Walk 50 ft with 2 Turns(QC): 6 Walk 150 ft (QC): 6 Gait Level of Assist: 6 Gait Persons Needed: 1 Gait Assistive Device: Walker 4 Wheeled Pt walks with slow but steady jack, no LOB. Wheelchair Training Does the Pt Use a Wheelchair?: No Exercises Supine Ex: Ankle pumps, Quad Set, Heel Slides, Straight leg raise, Hip abd/add Supine Reps: 10 NuStep Minutes: 13 NuStep Workload: 2 Treatments Pt reviewed progress, current pain and what pt wants to accomplish before discharging. Pt transferred from recliner using 4WW at Mod I. Pt ambulated using 4WW at Mod I. Pt completed NuStep for 23m at Workload 2 then Supine Ex on mat. Pt returned to room to rest in recliner to prepare for lunch. Pt is resting with all needs met at end of tx. Assessment Current Status: Good Progress Pt is improving with independence and safety of mobility and transfers. PT Short Term Goals Short Term Goals Time Frame: Sep 26, 2016 Transfers (B,C,W/C) (FIM): 5 Gait (FIM): 5 Gait Distance Comment: 200' Gait Level of Assist: 5 Gait Assistive Device: FWW PT Bending Frame Operator Goals Bending Frame Operator Goals PT Custodial Goals Time Frame: Oct 10, 2016 Transfers (B,C,W/C) (FIM): 6 Sit to Lying (QC): 6 Lying-Sitting on Side/Bed(QC): 6 Sit to Stand (QC): 6 Rollin Roll Left to Right (QC): 6 Chair/[id number] Xfer(QC): 6 Car Transfer (QC): 4 Gait (FIM): 6 Distance: 300' Walk 10 feet (QC): 6 Walk 10ft-Uneven Surface(QC): 6 Walk 50ft with 2 Turns (QC): 6 Walk 150 ft (QC): 6 Gait Level of Assist: 6 Gait Assistive Device: FWW Stairs (FIM): 2 # of Steps: 4 1 Step (curb) (QC): 4 4 Steps (QC): 4 Stairs Level Of Assist: 4 PT Plan Problem List Problem List: Activity Tolerance, Functional Strength, Bed Mobility Treatment/Plan Treatment Plan: Continue Plan of Care Treatment Plan: Bed Mobility, Education, Functional Activity Shamika, Functional Strength, Group Therapy, Gait, Safety, Therapeutic Exercise, Transfers Treatment Duration: Oct 10, 2016 Frequency: At least 5-7 days/Wk (IRF) Estimated Hrs Per Day: 1.5 hours per day Patient and/or Family Agrees t: Yes Safety Risks/Education Patient Education: Transfer Techniques, Correct Positioning, Safety Issues Teaching Recipient: Patient Teaching Methods: Discussion Response to Teaching: Verbalize Understanding Time/GCodes Time In: 1100 Time Out: 1200 Total Billed Treatment Time: 60 Total Billed Treatment visit, GT (15m), EX x2 (30m) & FA (15m) DANDRE LEON POISING INSPECTOR Sep 23, 2016 12:14
--- NOTE | 2016-09-23 12:15 | Occupational Ther Daily Note ---
OT Current Status-Daily Note Subjective Pt alert, lying in bed. Pt agreed to therapy. No c/o pain. Pt stated they had given her a new pain patch. Mental Status/Objective Patient Orientation: Person, Place, Time, Situation Functional [place] Measure 0=Not Assessed/NA 4=Minimal Assistance 1=Total Assistance 5=Supervision or Setup 2=Maximal Assistance 6=Modified [place] 3=Moderate Assistance 7=Complete [place] ADL-Treatment Very meticulous, has a certain way to complete her ADLs. With HOB raised, pt able to go from supine to sitting by self. Pt using 4WW for ambulation and transfers. Functional [place] Measure 0=Not Assessed/NA 4=Minimal Assistance 1=Total Assistance 5=Supervision or Setup 2=Maximal Assistance 6=Modified [place] 3=Moderate Assistance 7=Complete IndependenceIRFPAI Quality Coding Scale 6 Independent with activity with or without an assistive device 5 Patient requires set up or clean up by helper. Patient completes activity by themselves 4 Supervision or touching assist (CGA). [place] provide cues , steadying assist 3 The helper provides less than half the effort to complete the activity 2 The helper provides more than half the effort to complete the activity 1 Dependent. The helper does all the effort to complete an activity 7 Patient refused to complete or attempt activity 9 The patient did not perform the activity before the current illness or injury 88 Not attempted due to Medical conditions or safety concerns Grooming (FIM): 5 (Standing at sink with supervision, pt is able to complete task.) Bathing (FIM): 5 (Sponge bathe by self with supervision in standing to cleanse buttocks.) Upper Body (FIM): 4 (Set up and verbal cues to doff shirt with strategies for decreased B shldr ROM. Doffs/donns shirt by self. Assist to hook bra in back.) Lower Body Dressing (FIM): 3 (Pt is able to doff lower body clothing by self. Dons pants/underwear by self. Assist to don compression stockings and shoes.) Toileting (FIM): 6 (Completes using elevated seat with handles and grabbars.) Transfers (B, C, W/C) (FIM): 5 (Using 4WW, requires verbal cues for hand placement. Pt pulls on walker to stand.) Toilet/Commode Transfer (FIM): 6 (Using grabbars and elevated seat with handles is able to complete.) Other Treatment Pt able to complete modified theraband exercises 1 set 10 reps. Modified due to decreased AROM of B shldrs. After therapy, pt sitting in recliner with call light/phone in reach. All needs met in room. OT Short Term Goals Short Term Goals Time Frame: Sep 26, 2016 Bathing(FIM): 4 Upper Body Dressing(FIM): 5 Lower Body Dressing(FIM): 4 Transfers (B,C,W/C) (FIM): 5 Toilet/Commode Transfer(FIM): 5 Additional Short Term Goals: 1-Demonstrate ADL Tasks, 2-Verbalize Understanding , 3-ImproveStrength/Shamika 1=Demonstrate adherence to instructed precautions during ADL tasks. 2=Patient will verbalize/demonstrate understanding of assistive devices/ modifications for ADL. 3=Patient will improve strength/tolerance for activity to enable patient to perform ADL's. OT Alf Goals Production Posting Clerk Goals Time Frame: Oct 10, 2016 Eating (FIM): 6 Eating (QC): 6 Groomin Oral Hygiene (QC): 6 Bathing(FIM): 5 Shower/Bathe Self (QC): 5 Upper Body Dressing(FIM): 6 Upper Body Dressing (QC): 6 Lower Body Dressing(FIM): 5 Lower Body Dressing (QC): 5 On/Off Footwear (QC): 5 Toileting(FIM): 6 Toileting Hygiene (QC): 6 Toilet/Commode Transfer(FIM): 6 Toilet/Commode Transfer (QC): 6 Shower Transfer(FIM): 5 Additional Goals: 1-Demonstrate ADL Tasks, 2-Verbalize Understanding, 3- ImproveStrength/Shamika 1=Demonstrate adherence to instructed precautions during ADL tasks. 2=Patient will verbalize/demonstrate understanding of assistive devices/ modifications for ADL. 3=Patient will improve strength/tolerance for activity to enable patient to perform ADL's. OT Education/Plan Problem List/Assessment Pt demonstrates decreased ADL functioning, strength, mobility, and activity tolerance. Pt to benefit from skilled OT intervention for ADL training, transfers, strengthening, and safety education to maximize level of function and allow safe return home. Discharge Recommendations Plan/Recommendations: Continue POC Treatment Plan/Plan of Care Patient would benefit from OT for education, treatment and training to promote independence in ADL's, mobility, safety and/or upper extremity function for ADL' s. Plan of Care: ADL Retraining, Functional Mobility, Group Exercise/Act as Ind, UE Funct Exercise/Act, UE Neuromus Re-Ed/Coord Treatment Duration: Oct 10, 2016 Frequency: At least 5-7 days/Wk (IRF) Estimated Hrs Per Day: 1.5 hours per day Agreement: Yes Rehab Potential: Fair Time/GCodes Start Time: 10:00 Stop Time: 11:00 Total Time Billed (hr/min): 60 Billed Treatment Time 1 visit-ADL 4 (50 min) EX 1 (10 min) ORA GLEASON Sep 23, 2016 12:15
--- NOTE | 2016-09-23 13:45 | Progress Note (SOAP) ---
Subjective Date Seen by Provider: Sep 23, 2016 Time Seen by Provider: 13:00 Subjective/Events-last exam doing ok. no new issues. no increase pain/swelling right leg. no clinical bleeding. pain moderately controlled. Objective Exam Vital Signs Date Time Temp Pulse Resp B/P (MAP) Pulse Ox O2 Delivery O2 Flow Rate FiO2 09/23/16 07:40 Room Air 09/23/16 04:18 97.5 100 18 168/84 100 Room Air 09/22/16 21:00 Room Air 09/22/16 17:32 99.1 100 20 160/65 100 Room Air I & O 09/23/16 07:00 Intake Total 1400 ml Output Total 1 ml Balance 1399 ml Capillary Refill : General Appearance: No Apparent Distress HEENT: PERRL/EOMI Neck: Full Range of Motion Respiratory: Chest Non Tender, Normal Breath Sounds Cardiovascular: Regular Rate, Rhythm Gastrointestinal: normal bowel sounds, non tender, soft Extremity: Normal Capillary Refill Neurologic/Psychiatric: Alert, Oriented x3 Skin: Normal Color Lymphatic: No Adenopathy Results Lab Laboratory Tests 09/23/16 07:27: White Blood Count 8.3, Red Blood Count 3.24L, Hemoglobin 9.7L, Hematocrit 30L, Mean Corpuscular Volume 91, Mean Corpuscular Hemoglobin 30, Mean Corpuscular Hemoglobin Concent 33, Red Cell Distribution Width 17.2H, Platelet Count 302, Mean Platelet Volume 8.5, Neutrophils (%) (Auto) 81H, Lymphocytes (%) (Auto) 10L , Monocytes (%) (Auto) 8, Eosinophils (%) (Auto) 1, Basophils (%) (Auto) 0, Neutrophils # (Auto) 6.8, Lymphocytes # (Auto) 0.8L, Monocytes # (Auto) 0.6, Eosinophils # (Auto) 0.1, Basophils # (Auto) 0.0, Sodium Level 131L, Potassium Level 3.5L, Chloride Level 99, Carbon Dioxide Level 23, Anion Gap 9, Blood Urea Nitrogen 12, Creatinine 0.59L, Estimat Glomerular Filtration Rate > 60, BUN/ Creatinine Ratio 20, Glucose Level 115H, Calcium Level 7.5L, Total Bilirubin 1.1H, Aspartate Amino Transf (AST/SGOT) 15, Alanine Aminotransferase (ALT/SGPT) 14, Alkaline Phosphatase 68, Total Protein 5.4L, Albumin 2.5L Assessment/Plan Assessment/Plan Assess & Plan/Chief Complaint DJD with right LE edema and hx bleeding gastric ulcer. compression stockings. trial of fentanyl patch while in rehab u/s right leg negative for DVT. Clinical Quality Measures DVT/VTE Risk/Contraindication: Risk Factor Score Per Nursin RFS Level Per Nursing on Admit: 4+=Very High ABIGAIL TORREZ MD Sep 23, 2016 13:44
--- NOTE | 2016-09-23 13:58 | PM & R (SOAP) Progress Note ---
Subjective Time Seen by Provider: 08:10 Subjective/Events-last exam Patient was seen in her room this AM Venous doppler negative for DVT.Patient SBA for transfers Pain meds adjusted by DR Srinivasan last evening. Serum K low Replacement ordered by DR Silva Review of Systems Musculoskeletal: leg pain, shoulder pain Objective Exam Last Set of Vital Signs Vital Signs Date Time Temp Pulse Resp B/P (MAP) Pulse Ox O2 Delivery O2 Flow Rate FiO2 09/23/16 07:40 Room Air 09/23/16 04:18 97.5 100 18 168/84 100 Capillary Refill : I&O Intake and Output 09/23/16 00:00 Intake Total 1440 ml Output Total 1 ml Balance 1439 ml Intake Oral 1440 ml Output Stool Total 1 ml # Voids 13 # Bowel Movements 3 General: Alert, Oriented X3, Cooperative, No Acute Distress HEENT: Atraumatic, PERRLA, EOMI, Mucous Memb Moist/[place] Neck: Supple, No JVD Lungs: Clear to Auscultation Heart: Regular Rate Abdomen: Normal Bowel Sounds, Soft, No Tenderness Extremities: Other (plus edema rt calf associated with tenderness and ecchymosis) Skin: Other (as per above) Neuro: Other (Decreased sensation to light touch both feet Impaired strength rt LE due to pain and swelling rt calf OA changes both PIPS of hands) Psych/Mental Status: Mental Status NL Results Lab Laboratory Tests 09/23/16 07:27: White Blood Count 8.3, Red Blood Count 3.24L, Hemoglobin 9.7L, Hematocrit 30L, Mean Corpuscular Volume 91, Mean Corpuscular Hemoglobin 30, Mean Corpuscular Hemoglobin Concent 33, Red Cell Distribution Width 17.2H, Platelet Count 302, Mean Platelet Volume 8.5, Neutrophils (%) (Auto) 81H, Lymphocytes (%) (Auto) 10L , Monocytes (%) (Auto) 8, Eosinophils (%) (Auto) 1, Basophils (%) (Auto) 0, Neutrophils # (Auto) 6.8, Lymphocytes # (Auto) 0.8L, Monocytes # (Auto) 0.6, Eosinophils # (Auto) 0.1, Basophils # (Auto) 0.0, Sodium Level 131L, Potassium Level 3.5L, Chloride Level 99, Carbon Dioxide Level 23, Anion Gap 9, Blood Urea Nitrogen 12, Creatinine 0.59L, Estimat Glomerular Filtration Rate > 60, BUN/ Creatinine Ratio 20, Glucose Level 115H, Calcium Level 7.5L, Total Bilirubin 1.1H, Aspartate Amino Transf (AST/SGOT) 15, Alanine Aminotransferase (ALT/SGPT) 14, Alkaline Phosphatase 68, Total Protein 5.4L, Albumin 2.5L Assessment/Plan Assessment 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 Plan Continue PT/OT/Pain Management F/U with DR Silva and Zarina as per their schedule Checked F/U labs Checked Doppler Pain management Team Conference tomorrow 09/24/16 BERE BEAN MD Sep 23, 2016 13:58
--- NOTE | 2016-09-23 15:08 | Therapy Group Daily Note ---
Therapy Daily Group Note Patient Education Topic Home Safety Other/Notes Pt ambulated with 4WW to therapy gym for OT/PT group. OT/PT group consisted of introductions (name, place living, what you do to make things easier/safer at home), ARU weekly meeting description, and home safety education and discussion. Education on stair safety with FWW and/or rails then tripping hazards and solutions in living areas and bathroom. Pt contributed to discussions with accurate information. After group, pt lying in bed with call light/phone in reach. All needs met in room. Start Time: 13:00 Stop Time: 14:15 Total Billed Treatment Time: 75 Total Billed Treatment 1-GRP ORA GLEASON Sep 23, 2016 15:08
[2016-09-23 18:37] VITALS: BP 171/76
[2016-09-23] MEDS: POLYETHYLENE GLYCOL 17 GM (MIRALAX) PACK PO SCH (20:14)
[2016-09-24] MEDS: MULTIVIT W/MINERALS TAB (THERAGRAN M) PO SCH (06:02)
[2016-09-24] MEDS: CALCIUM CARB + VIT D 600 MG (CALCARB + D) TAB PO SCH ×2 (06:02→16:46)
[2016-09-24] MEDS: SUCRALFATE 1 GM (CARAFATE) TAB PO SCH ×4 (06:02→20:16)
[2016-09-24] MEDS: PANTOPRAZOLE 40 MG (PROTONIX) TAB PO SCH ×2 (06:02→20:16)
[2016-09-24] MEDS: TROSPIUM 20 MG (SANCTURA) TAB PO SCH ×2 (06:02→16:46)
[2016-09-24 06:20] VITALS: BP 154/85
[2016-09-24] MEDS: FUROSEMIDE 20 MG (LASIX) TAB PO PRN (08:04)
[2016-09-24] MEDS: SENNA W/DOCUSATE (SENOKOT S) TABLET PO SCH ×2 (08:04→20:16)
[2016-09-24] MEDS: DOCUSATE SODIUM 100 MG (COLACE) CAP PO SCH ×2 (08:04→20:16)
[2016-09-24] MEDS: KCL 10 MEQ TAB (MICRO K) PO PRN (08:04)
[2016-09-24] MEDS: VITAMIN D3 1,000 UNITS (CHOLECALCIFEROL) TABLET PO SCH ×2 (08:04→20:16)
--- NOTE | 2016-09-24 09:12 | Physical Therapy Daily Note ---
PT Daily Note-Current Subjective Pt. states she would prefer to have OT and bathe and dress before PT. This SHEET METAL SUPERINTENDENT explained the scheduling system and that we would try as best we can to fulfill this in the future. Pt. states she feels her pain is less this morning and she is surprised at how much better she is moving. Agrees to Rx. Pain Numeric Pain Scale: 3 Location: Right Location Body Site: Hip Pain Description: Ache Appearance pt. still so very concerned about her bruising , this SHEET METAL SUPERINTENDENT explains that it is normal and looks rough but that allcaregivers are on alert for any real abnormalities , pt. had neg doppler yesterday Mental Status Patient Orientation: Normal For Age Transfers Functional [place] Measure 0=Not Assessed/NA 4=Minimal Assistance 1=Total Assistance 5=Supervision or Setup 2=Maximal Assistance 6=Modified [place] 3=Moderate Assistance 7=Complete IndependenceIRFPAI Quality Coding Scale 6 Independent with activity with or without an assistive device 5 Patient requires set up or clean up by helper. Patient completes activity by themselves 4 Supervision or touching assist (CGA). [place] provide cues , steadying assist 3 The helper provides less than half the effort to complete the activity 2 The helper provides more than half the effort to complete the activity 1 Dependent. The helper does all the effort to complete an activity 7 Patient refused to complete or attempt activity 9 The patient did not perform the activity before the current illness or injury 88 Not attempted due to Medical conditions or safety concerns Transfers (B, C, W/C) (FIM): 6 Scootin Rollin Supine to/from Sit: 6 Sit to/from Stand: 6 Weight Bearing Weight Bearing Restriction: Weight Bearing/Tolerated Location Restriction: R LE Gait Training Does the Patient Walk?: Yes Gait (FIM): 5 Distance (FIM): 3=150 ft (300x2) Gait Level of Assist: 5 Gait Persons Needed: 1 Gait Assistive Device: Walker 4 Wheeled pt. manages gait well however does a T formation at turns and has displays some potential for risk of falls here, obstacle course for fig 8s with emphasis on broader OANH, pt managed very well withthis new info Stair Training Stair Training: Handrails/: 2 handrails Stairs (FIM): 2 #of Steps: 4 Stairs: Pattern: Step to Level of Assist: 4 Exercises Supine Ex: Bridging, Ankle pumps, Quad Set, Rolling, Glut sets, Heel Slides, Short Arc Quads, Scooting, Straight leg raise, Hip abd/add Supine Reps: 12 Assessment Current Status: Good Progress less pain, increased funct mob PT Short Term Goals Short Term Goals Time Frame: Sep 26, 2016 Transfers (B,C,W/C) (FIM): 5 Gait (FIM): 5 Gait Distance Comment: 200' Gait Level of Assist: 5 Gait Assistive Device: FWW PT Nursing Home Goals Internal Medicine Physician Goals PT Nursing Home Goals Time Frame: Oct 10, 2016 Transfers (B,C,W/C) (FIM): 6 Sit to Lying (QC): 6 Lying-Sitting on Side/Bed(QC): 6 Sit to Stand (QC): 6 Rollin Roll Left to Right (QC): 6 Chair/Bha-fp-Vybbj Xfer(QC): 6 Car Transfer (QC): 4 Gait (FIM): 6 Distance: 300' Walk 10 feet (QC): 6 Walk 10ft-Uneven Surface(QC): 6 Walk 50ft with 2 Turns (QC): 6 Walk 150 ft (QC): 6 Gait Level of Assist: 6 Gait Assistive Device: FWW Stairs (FIM): 2 # of Steps: 4 1 Step (curb) (QC): 4 4 Steps (QC): 4 Stairs Level Of Assist: 4 PT Plan Treatment/Plan Treatment Plan: Continue Plan of Care Treatment Plan: Bed Mobility, Education, Functional Activity Shamika, Functional Strength, Group Therapy, Gait, Safety, Therapeutic Exercise, Transfers Treatment Duration: Oct 10, 2016 Frequency: At least 5-7 days/Wk (IRF) Estimated Hrs Per Day: 1.5 hours per day Patient and/or Family Agrees t: Yes Safety Risks/Education Patient Education: Gait Training, Transfer Techniques, Steps, Issued Written HEP, Correct Positioning, Disease Process, Safety Issues Teaching Recipient: Patient Teaching Methods: Demonstration, Discussion Response to Teaching: Verbalize Understanding, Return Demonstration, Reinforcement Needed Time/GCodes Time In: 800 Time Out: 900 Total Billed Treatment Time: 60 Total Billed Treatment 1,GT30,EX15,FA15 G Codes Necessary: JULIANNE Inman SHEET METAL SUPERINTENDENT Sep 24, 2016 09:12
[2016-09-24] MEDS: DICLOFENAC 1% GEL 100 GM (VOLTAREN) TUBE TOP SCH ×4 (10:00→20:17)
[2016-09-24] MEDS ORDERED: FENTANYL PATCH REMOVAL TP SCH (10:14)
[2016-09-24] MEDS ORDERED: fentaNYL PATCH 50 MCG (DURAGESIC) TOP SCH (10:15)
--- NOTE | 2016-09-24 12:50 | Occupational Ther Daily Note ---
OT Current Status-Daily Note Subjective Pt in bed, agrees to treatment. Pt states she is feeling better today. Reports 4/10 pain in right shoulder and down left leg. Mental Status/Objective Functional [place] Measure 0=Not Assessed/NA 4=Minimal Assistance 1=Total Assistance 5=Supervision or Setup 2=Maximal Assistance 6=Modified [place] 3=Moderate Assistance 7=Complete [place] ADL-Treatment Pt requests shower this morning. Gait to restroom with 4WW, no LOB noted. Transfer to toilet with modified independence using grab bars for balance. Pt able to complete toileting hygiene. Doff shirt, pants, underwear, and socks with SBA. Requires assist to untie shoes, but is then able to doff shoes. Uses dressing stick to doff lower body clothing. Transfer to walk in shower with SBA. Pt able to wash all areas with SBA and increased time. Uses long handled sponge to wash lower legs and feet and uses side panel padder and towel to dry them. Pt requires assist to hook bra in the back. Able to don pullover shirt with set up. Pt used side panel padder to start underwear and pants over feet. Stood with supervision for pant hike. Assist required to don compression socks. Pt used long handled shoe horn to don shoes. Pt required min assist for right shoe, but able to don left shoe after set up. Pt resting in bed with needs met after session. Functional [place] Measure 0=Not Assessed/NA 4=Minimal Assistance 1=Total Assistance 5=Supervision or Setup 2=Maximal Assistance 6=Modified [place] 3=Moderate Assistance 7=Complete IndependenceIRFPAI Quality Coding Scale 6 Independent with activity with or without an assistive device 5 Patient requires set up or clean up by helper. Patient completes activity by themselves 4 Supervision or touching assist (CGA). [place] provide cues , steadying assist 3 The helper provides less than half the effort to complete the activity 2 The helper provides more than half the effort to complete the activity 1 Dependent. The helper does all the effort to complete an activity 7 Patient refused to complete or attempt activity 9 The patient did not perform the activity before the current illness or injury 88 Not attempted due to Medical conditions or safety concerns Bathing (FIM): 5 Upper Body (FIM): 4 Upper Body Dressing (QC): 3 Lower Body Dressing (FIM): 4 Lower Body Dressing (QC): 3 Toilet/Commode Transfer (FIM): 6 Toilet Transfer (QC): 6 Shower Transfer(FIM): 5 OT Short Term Goals Short Term Goals Time Frame: Sep 26, 2016 Bathing(FIM): 4 Upper Body Dressing(FIM): 5 Lower Body Dressing(FIM): 4 Transfers (B,C,W/C) (FIM): 5 Toilet/Commode Transfer(FIM): 5 Additional Short Term Goals: 1-Demonstrate ADL Tasks, 2-Verbalize Understanding , 3-ImproveStrength/Shamika 1=Demonstrate adherence to instructed precautions during ADL tasks. 2=Patient will verbalize/demonstrate understanding of assistive devices/ modifications for ADL. 3=Patient will improve strength/tolerance for activity to enable patient to perform ADL's. OT Group Home Goals Group Home Goals Time Frame: Oct 10, 2016 Eating (FIM): 6 Eating (QC): 6 Groomin Oral Hygiene (QC): 6 Bathing(FIM): 5 Shower/Bathe Self (QC): 5 Upper Body Dressing(FIM): 6 Upper Body Dressing (QC): 6 Lower Body Dressing(FIM): 5 Lower Body Dressing (QC): 5 On/Off Footwear (QC): 5 Toileting(FIM): 6 Toileting Hygiene (QC): 6 Toilet/Commode Transfer(FIM): 6 Toilet/Commode Transfer (QC): 6 Shower Transfer(FIM): 5 Additional Goals: 1-Demonstrate ADL Tasks, 2-Verbalize Understanding, 3- ImproveStrength/Shamika 1=Demonstrate adherence to instructed precautions during ADL tasks. 2=Patient will verbalize/demonstrate understanding of assistive devices/ modifications for ADL. 3=Patient will improve strength/tolerance for activity to enable patient to perform ADL's. OT Education/Plan Problem List/Assessment Pt demonstrates decreased ADL functioning, strength, mobility, and activity tolerance. Pt to benefit from skilled OT intervention for ADL training, transfers, strengthening, and safety education to maximize level of function and allow safe return home. Discharge Recommendations Plan/Recommendations: Continue POC Treatment Plan/Plan of Care Patient would benefit from OT for education, treatment and training to promote independence in ADL's, mobility, safety and/or upper extremity function for ADL' s. Plan of Care: ADL Retraining, Functional Mobility, Group Exercise/Act as Ind, UE Funct Exercise/Act, UE Neuromus Re-Ed/Coord Treatment Duration: Oct 10, 2016 Frequency: At least 5-7 days/Wk (IRF) Estimated Hrs Per Day: 1.5 hours per day Agreement: Yes Rehab Potential: Fair Time/GCodes Start Time: 09:00 Stop Time: 10:00 Total Time Billed (hr/min): 60 Billed Treatment Time 1 visit, ADLx4(60minutes) SU GOMEZ OT Sep 24, 2016 12:50
--- NOTE | 2016-09-24 13:00 | Occupational Ther Daily Note ---
OT Current Status-Daily Note Subjective Pt agrees to treatment. Mental Status/Objective Functional [place] Measure 0=Not Assessed/NA 4=Minimal Assistance 1=Total Assistance 5=Supervision or Setup 2=Maximal Assistance 6=Modified [place] 3=Moderate Assistance 7=Complete [place] ADL-Treatment Pt in restroom when therapist arrives. Pt able to complete toileting hygiene. Requires SBA for balance during pant hike. Pt stood at sink to wash hands with SBA. Transfer to chair with SBA using 4WW. Functional [place] Measure 0=Not Assessed/NA 4=Minimal Assistance 1=Total Assistance 5=Supervision or Setup 2=Maximal Assistance 6=Modified [place] 3=Moderate Assistance 7=Complete IndependenceIRFPAI Quality Coding Scale 6 Independent with activity with or without an assistive device 5 Patient requires set up or clean up by helper. Patient completes activity by themselves 4 Supervision or touching assist (CGA). [place] provide cues , steadying assist 3 The helper provides less than half the effort to complete the activity 2 The helper provides more than half the effort to complete the activity 1 Dependent. The helper does all the effort to complete an activity 7 Patient refused to complete or attempt activity 9 The patient did not perform the activity before the current illness or injury 88 Not attempted due to Medical conditions or safety concerns Toileting (FIM): 5 Toileting Hygiene (QC): 4 Other Treatment Pt participated in UE activity to promote increased ROM and strength. AAROM bilateral shoulders to pt tolerance. Pt has decreased active and passive shoulder ROM. Pt performed active ROM x10 reps at all other joints to promote increased strength needed for functional tasks. Pt sitting in chair with needs met after session. OT Short Term Goals Short Term Goals Time Frame: Sep 26, 2016 Bathing(FIM): 4 Upper Body Dressing(FIM): 5 Lower Body Dressing(FIM): 4 Transfers (B,C,W/C) (FIM): 5 Toilet/Commode Transfer(FIM): 5 Additional Short Term Goals: 1-Demonstrate ADL Tasks, 2-Verbalize Understanding , 3-ImproveStrength/Shamika 1=Demonstrate adherence to instructed precautions during ADL tasks. 2=Patient will verbalize/demonstrate understanding of assistive devices/ modifications for ADL. 3=Patient will improve strength/tolerance for activity to enable patient to perform ADL's. OT Repair Manager Goals [facility] Goals Time Frame: Oct 10, 2016 Eating (FIM): 6 Eating (QC): 6 Groomin Oral Hygiene (QC): 6 Bathing(FIM): 5 Shower/Bathe Self (QC): 5 Upper Body Dressing(FIM): 6 Upper Body Dressing (QC): 6 Lower Body Dressing(FIM): 5 Lower Body Dressing (QC): 5 On/Off Footwear (QC): 5 Toileting(FIM): 6 Toileting Hygiene (QC): 6 Toilet/Commode Transfer(FIM): 6 Toilet/Commode Transfer (QC): 6 Shower Transfer(FIM): 5 Additional Goals: 1-Demonstrate ADL Tasks, 2-Verbalize Understanding, 3- ImproveStrength/Shamika 1=Demonstrate adherence to instructed precautions during ADL tasks. 2=Patient will verbalize/demonstrate understanding of assistive devices/ modifications for ADL. 3=Patient will improve strength/tolerance for activity to enable patient to perform ADL's. OT Education/Plan Problem List/Assessment Pt demonstrates decreased ADL functioning, strength, mobility, and activity tolerance. Pt to benefit from skilled OT intervention for ADL training, transfers, strengthening, and safety education to maximize level of function and allow safe return home. Discharge Recommendations Plan/Recommendations: Continue POC Treatment Plan/Plan of Care Patient would benefit from OT for education, treatment and training to promote independence in ADL's, mobility, safety and/or upper extremity function for ADL' s. Plan of Care: ADL Retraining, Functional Mobility, Group Exercise/Act as Ind, UE Funct Exercise/Act, UE Neuromus Re-Ed/Coord Treatment Duration: Oct 10, 2016 Frequency: At least 5-7 days/Wk (IRF) Estimated Hrs Per Day: 1.5 hours per day Agreement: Yes Rehab Potential: Fair Time/GCodes Start Time: 11:30 Stop Time: 12:00 Total Time Billed (hr/min): 30 Billed Treatment Time 1 visit, ADL(10minutes), EX(20minutes) SU GOMEZ OT Sep 24, 2016 13:00
--- NOTE | 2016-09-24 13:59 | Physical Therapy Daily Note ---
PT Daily Note-Current Subjective Pt. agrees to Rx. States she knows some exercise to do when she is alone in bed and feels confident to do them Pain Numeric Pain Scale: 3 Location: Right Location Body Site: Hip Pain Description: Ache Mental Status Patient Orientation: Normal For Age Transfers Functional [place] Measure 0=Not Assessed/NA 4=Minimal Assistance 1=Total Assistance 5=Supervision or Setup 2=Maximal Assistance 6=Modified [place] 3=Moderate Assistance 7=Complete IndependenceIRFPAI Quality Coding Scale 6 Independent with activity with or without an assistive device 5 Patient requires set up or clean up by helper. Patient completes activity by themselves 4 Supervision or touching assist (CGA). [place] provide cues , steadying assist 3 The helper provides less than half the effort to complete the activity 2 The helper provides more than half the effort to complete the activity 1 Dependent. The helper does all the effort to complete an activity 7 Patient refused to complete or attempt activity 9 The patient did not perform the activity before the current illness or injury 88 Not attempted due to Medical conditions or safety concerns in out bed and chair SBA Gait Training Gait Assistive Device: Walker 4 Wheeled 200x2, tight spaces and fig 8s Exercises Supine Ex: Bridging, Ankle pumps, Quad Set, Glut sets, Heel Slides, Short Arc Quads, Scooting, Straight leg raise, Hip abd/add Supine Reps: 12 Assessment Current Status: Good Progress PT Short Term Goals Short Term Goals Time Frame: Sep 26, 2016 Transfers (B,C,W/C) (FIM): 5 Gait (FIM): 5 Gait Distance Comment: 200' Gait Level of Assist: 5 Gait Assistive Device: FWW PT Intermediate Goals Smoke Chaser Goals PT Intermediate Goals Time Frame: Oct 10, 2016 Transfers (B,C,W/C) (FIM): 6 Sit to Lying (QC): 6 Lying-Sitting on Side/Bed(QC): 6 Sit to Stand (QC): 6 Rollin Roll Left to Right (QC): 6 Chair/Umv-yl-Yeqir Xfer(QC): 6 Car Transfer (QC): 4 Gait (FIM): 6 Distance: 300' Walk 10 feet (QC): 6 Walk 10ft-Uneven Surface(QC): 6 Walk 50ft with 2 Turns (QC): 6 Walk 150 ft (QC): 6 Gait Level of Assist: 6 Gait Assistive Device: FWW Stairs (FIM): 2 # of Steps: 4 1 Step (curb) (QC): 4 4 Steps (QC): 4 Stairs Level Of Assist: 4 PT Plan Treatment/Plan Treatment Plan: Continue Plan of Care Treatment Plan: Bed Mobility, Education, Functional Activity Shamika, Functional Strength, Group Therapy, Gait, Safety, Therapeutic Exercise, Transfers Treatment Duration: Oct 10, 2016 Frequency: At least 5-7 days/Wk (IRF) Estimated Hrs Per Day: 1.5 hours per day Patient and/or Family Agrees t: Yes Safety Risks/Education Patient Education: Gait Training, Transfer Techniques Teaching Recipient: Patient Teaching Methods: Demonstration, Discussion Response to Teaching: Verbalize Understanding, Return Demonstration, Reinforcement Needed Time/GCodes Time In: 1330 Time Out: 1400 Total Billed Treatment Time: 30 Total Billed Treatment 1,EX15m,GT15m G Codes Necessary: JULIANNE Inman DIXONAC OPERATOR Sep 24, 2016 13:59
[2016-09-24 18:04] VITALS: BP 154/77
--- NOTE | 2016-09-24 19:05 | PM & R (SOAP) Progress Note ---
Subjective Time Seen by Provider: 07:45 Subjective/Events-last exam Patient was seen in her room this AM.Progressing well with therapies Discussed Doppler results with patient as well as F/U HGB s/p transfusion -improved > 9.Patient SBA for transfers Objective Exam Last Set of Vital Signs Vital Signs Date Time Temp Pulse Resp B/P (MAP) Pulse Ox O2 Delivery O2 Flow Rate FiO2 09/24/16 18:04 98.5 88 20 154/77 100 Room Air Capillary Refill : I&O Intake and Output 09/24/16 00:00 Intake Total 1640 ml Balance 1640 ml Intake Oral 1640 ml # Voids 10 # Bowel Movements 1 General: Alert, Oriented X3, Cooperative, No Acute Distress HEENT: Atraumatic, PERRLA, EOMI, Mucous Memb Moist/[place] Neck: Supple, No JVD Lungs: Clear to Auscultation Heart: Regular Rate Abdomen: Normal Bowel Sounds, Soft, No Tenderness Extremities: Other (plus edema rt calf associated with tenderness and ecchymosis) Skin: Other (as per above) Neuro: Other (Decreased sensation to light touch both feet Impaired strength rt LE due to pain and swelling rt calf OA changes both PIPS of hands) Psych/Mental Status: Mental Status NL Results Lab Laboratory Tests 09/23/16 07:27: White Blood Count 8.3, Red Blood Count 3.24L, Hemoglobin 9.7L, Hematocrit 30L, Mean Corpuscular Volume 91, Mean Corpuscular Hemoglobin 30, Mean Corpuscular Hemoglobin Concent 33, Red Cell Distribution Width 17.2H, Platelet Count 302, Mean Platelet Volume 8.5, Neutrophils (%) (Auto) 81H, Lymphocytes (%) (Auto) 10L , Monocytes (%) (Auto) 8, Eosinophils (%) (Auto) 1, Basophils (%) (Auto) 0, Neutrophils # (Auto) 6.8, Lymphocytes # (Auto) 0.8L, Monocytes # (Auto) 0.6, Eosinophils # (Auto) 0.1, Basophils # (Auto) 0.0, Sodium Level 131L, Potassium Level 3.5L, Chloride Level 99, Carbon Dioxide Level 23, Anion Gap 9, Blood Urea Nitrogen 12, Creatinine 0.59L, Estimat Glomerular Filtration Rate > 60, BUN/ Creatinine Ratio 20, Glucose Level 115H, Calcium Level 7.5L, Total Bilirubin 1.1H, Aspartate Amino Transf (AST/SGOT) 15, Alanine Aminotransferase (ALT/SGPT) 14, Alkaline Phosphatase 68, Total Protein 5.4L, Albumin 2.5L 09/24/16 05:56: Glucometer 97 Assessment/Plan Assessment 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 Hyponatremia Plan Continue PT/OT/Pain Management F/U with DR Byrd and Zarina as per their schedule Checked F/U labs Checked Doppler Pain management Team Conference held earlier today-See report for full functional update and POC and ELOS Recheck Chem in AM BERE BEAN MD Sep 24, 2016 19:05
[2016-09-24] MEDS: POLYETHYLENE GLYCOL 17 GM (MIRALAX) PACK PO SCH (20:16)
[2016-09-25 06:15] VITALS: BP 148/76
[2016-09-25] MEDS: TROSPIUM 20 MG (SANCTURA) TAB PO SCH ×2 (06:17→16:36)
[2016-09-25] MEDS: SUCRALFATE 1 GM (CARAFATE) TAB PO SCH ×4 (06:17→20:12)
[2016-09-25] MEDS: CALCIUM CARB + VIT D 600 MG (CALCARB + D) TAB PO SCH ×2 (06:17→16:36)
[2016-09-25] MEDS: PANTOPRAZOLE 40 MG (PROTONIX) TAB PO SCH ×2 (06:17→20:12)
[2016-09-25] MEDS: MULTIVIT W/MINERALS TAB (THERAGRAN M) PO SCH (06:17)
[2016-09-25 06:59] LABS: ALANINE AMINOTRANSFERASE 17 U/L (0-55); ALBUMIN 2.5 GM/DL (3.2-4.5); ANION GAP 11 MMOL/L (5-14); ASPARTATE AMINO TRANSFERASE 19 U/L (5-34); BILIRUBIN,TOTAL 0.9 MG/DL (0.1-1.0); BLOOD UREA NITROGEN 11 MG/DL (7-18); BUN/CREATININE RATIO 21; CALCIUM 7.4 MG/DL (8.5-10.1); CARBON DIOXIDE 21 MMOL/L (21-32); CHLORIDE 99 MMOL/L (98-107); CREATININE SERUM 0.52 MG/DL (0.60-1.30); GFR ESTIMATED > 60; GLUCOSE 83 MG/DL (70-105); SODIUM 131 MMOL/L (135-145); TOTAL PROTEIN 5.3 GM/DL (6.4-8.2)
[2016-09-25] MEDS: DOCUSATE SODIUM 100 MG (COLACE) CAP PO SCH ×2 (08:06→20:12)
[2016-09-25] MEDS: FUROSEMIDE 20 MG (LASIX) TAB PO PRN (08:06)
[2016-09-25] MEDS: VITAMIN D3 1,000 UNITS (CHOLECALCIFEROL) TABLET PO SCH ×2 (08:06→20:12)
[2016-09-25] MEDS: DICLOFENAC 1% GEL 100 GM (VOLTAREN) TUBE TOP SCH ×4 (08:06→20:13)
[2016-09-25] MEDS: KCL 10 MEQ TAB (MICRO K) PO PRN (08:07)
[2016-09-25] MEDS: SENNA W/DOCUSATE (SENOKOT S) TABLET PO SCH ×2 (08:07→20:12)
--- NOTE | 2016-09-25 08:38 | PM & R (SOAP) Progress Note ---
Subjective Time Seen by Provider: 08:15 Subjective/Events-last exam Patient was seen in her room this AM Patient SBA for transfers Edema gradually decreasing on rt.Labs noted Objective Exam Last Set of Vital Signs Vital Signs Date Time Temp Pulse Resp B/P (MAP) Pulse Ox O2 Delivery O2 Flow Rate FiO2 09/25/16 07:56 Room Air 09/25/16 06:15 97.1 89 20 148/76 99 Capillary Refill : I&O Intake and Output 09/25/16 00:00 Intake Total 1625 ml Balance 1625 ml Intake Oral 1625 ml # Voids 8 # Bowel Movements 1 General: Alert, Oriented X3, Cooperative, No Acute Distress HEENT: Atraumatic, PERRLA, EOMI, Mucous Memb Moist/[place] Neck: Supple, No JVD Lungs: Clear to Auscultation Heart: Regular Rate Abdomen: Normal Bowel Sounds, Soft, No Tenderness Extremities: Other (plus edema rt calf associated with tenderness and ecchymosis) Skin: Other (as per above) Neuro: Other (Decreased sensation to light touch both feet Impaired strength rt LE due to pain and swelling rt calf OA changes both PIPS of hands) Psych/Mental Status: Mental Status NL Results Lab Laboratory Tests 09/23/16 07:27: White Blood Count 8.3, Red Blood Count 3.24L, Hemoglobin 9.7L, Hematocrit 30L, Mean Corpuscular Volume 91, Mean Corpuscular Hemoglobin 30, Mean Corpuscular Hemoglobin Concent 33, Red Cell Distribution Width 17.2H, Platelet Count 302, Mean Platelet Volume 8.5, Neutrophils (%) (Auto) 81H, Lymphocytes (%) (Auto) 10L , Monocytes (%) (Auto) 8, Eosinophils (%) (Auto) 1, Basophils (%) (Auto) 0, Neutrophils # (Auto) 6.8, Lymphocytes # (Auto) 0.8L, Monocytes # (Auto) 0.6, Eosinophils # (Auto) 0.1, Basophils # (Auto) 0.0, Sodium Level 131L, Potassium Level 3.5L, Chloride Level 99, Carbon Dioxide Level 23, Anion Gap 9, Blood Urea Nitrogen 12, Creatinine 0.59L, Estimat Glomerular Filtration Rate > 60, BUN/ Creatinine Ratio 20, Glucose Level 115H, Calcium Level 7.5L, Total Bilirubin 1.1H, Aspartate Amino Transf (AST/SGOT) 15, Alanine Aminotransferase (ALT/SGPT) 14, Alkaline Phosphatase 68, Total Protein 5.4L, Albumin 2.5L 09/24/16 05:56: Glucometer 97 09/25/16 06:25: Sodium Level 131L, Potassium Level 4.0, Chloride Level 99, Carbon Dioxide Level 21, Anion Gap 11, Blood Urea Nitrogen 11, Creatinine 0.52L, Estimat Glomerular Filtration Rate > 60, BUN/Creatinine Ratio 21, Glucose Level 83, Calcium Level 7.4L, Total Bilirubin 0.9, Aspartate Amino Transf (AST/SGOT) 19, Alanine Aminotransferase (ALT/SGPT) 17, Alkaline Phosphatase 69, Total Protein 5.3L, Albumin 2.5L Assessment/Plan Assessment 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 Hyponatremia-stable Plan Continue PT/OT/Pain Management F/U with DR Byrd and Zarina as per their schedule Checked F/U labs Checked Doppler Pain management Team Conference held yesterday-See report for full functional update and POC and ELOS Rechecked BERE BEAN MD Sep 25, 2016 08:38
--- NOTE | 2016-09-25 12:22 | Occupational Ther Daily Note ---
OT Current Status-Daily Note Subjective Pt in bed, agrees to treatment. Pt reports 3/10 pain in right shoulder and right LE. Mental Status/Objective Functional [place] Measure 0=Not Assessed/NA 4=Minimal Assistance 1=Total Assistance 5=Supervision or Setup 2=Maximal Assistance 6=Modified [place] 3=Moderate Assistance 7=Complete [place] ADL-Treatment Pt supine to sit without assist using bed rail. Pt requests sponge bath this morning. Gait to restroom with 4WW, no LOB noted. Transfer to [facility] over toilet with modified independence. Pt able to complete toileting hygiene and clothing management with modified independence. Pt doffed clothing without assistance. Uses spring coiling machine setter for LE dressing. Pt completed sponge bath with set up. Pt states at home she fastens bra, steps into it, and pull it up over hips secondary to inability to reach around back to fasten it. Pt demonstrated ability to don bra using her normal technique with SBA. Uses spring coiling machine setter to hold bra and bring it up over feet. Don pullover shirt with set up. Pt used spring coiling machine setter to start underwear and pants over feet. Stood with good balance for pant hike. Pt attempted to use sock aid to don compression socks. Able to get socks over feet, but required assist to pull socks up to knees. Elastic shoe laces placed in shoes. Pt requires assist to don shoes. Combed hair with modified independence. Pt transferred to bed with modified independence. In bed with needs met after session. Functional [place] Measure 0=Not Assessed/NA 4=Minimal Assistance 1=Total Assistance 5=Supervision or Setup 2=Maximal Assistance 6=Modified [place] 3=Moderate Assistance 7=Complete IndependenceIRFPAI Quality Coding Scale 6 Independent with activity with or without an assistive device 5 Patient requires set up or clean up by helper. Patient completes activity by themselves 4 Supervision or touching assist (CGA). [place] provide cues , steadying assist 3 The helper provides less than half the effort to complete the activity 2 The helper provides more than half the effort to complete the activity 1 Dependent. The helper does all the effort to complete an activity 7 Patient refused to complete or attempt activity 9 The patient did not perform the activity before the current illness or injury 88 Not attempted due to Medical conditions or safety concerns Upper Body (FIM): 5 Upper Body Dressing (QC): 5 Lower Body Dressing (FIM): 4 Lower Body Dressing (QC): 4 Toileting (FIM): 6 Toileting Hygiene (QC): 6 Toilet/Commode Transfer (FIM): 6 OT Short Term Goals Short Term Goals Time Frame: Sep 26, 2016 Bathing(FIM): 4 Upper Body Dressing(FIM): 5 Lower Body Dressing(FIM): 4 Transfers (B,C,W/C) (FIM): 5 Toilet/Commode Transfer(FIM): 5 Additional Short Term Goals: 1-Demonstrate ADL Tasks, 2-Verbalize Understanding , 3-ImproveStrength/Shamika 1=Demonstrate adherence to instructed precautions during ADL tasks. 2=Patient will verbalize/demonstrate understanding of assistive devices/ modifications for ADL. 3=Patient will improve strength/tolerance for activity to enable patient to perform ADL's. OT Usp Goals Cosmetologist Goals Time Frame: Oct 10, 2016 Eating (FIM): 6 Eating (QC): 6 Groomin Oral Hygiene (QC): 6 Bathing(FIM): 5 Shower/Bathe Self (QC): 5 Upper Body Dressing(FIM): 6 Upper Body Dressing (QC): 6 Lower Body Dressing(FIM): 5 Lower Body Dressing (QC): 5 On/Off Footwear (QC): 5 Toileting(FIM): 6 Toileting Hygiene (QC): 6 Toilet/Commode Transfer(FIM): 6 Toilet/Commode Transfer (QC): 6 Shower Transfer(FIM): 5 Additional Goals: 1-Demonstrate ADL Tasks, 2-Verbalize Understanding, 3- ImproveStrength/Shamika 1=Demonstrate adherence to instructed precautions during ADL tasks. 2=Patient will verbalize/demonstrate understanding of assistive devices/ modifications for ADL. 3=Patient will improve strength/tolerance for activity to enable patient to perform ADL's. OT Education/Plan Problem List/Assessment Pt demonstrates decreased ADL functioning, strength, mobility, and activity tolerance. Pt to benefit from skilled OT intervention for ADL training, transfers, strengthening, and safety education to maximize level of function and allow safe return home. Discharge Recommendations Plan/Recommendations: Continue POC Treatment Plan/Plan of Care Patient would benefit from OT for education, treatment and training to promote independence in ADL's, mobility, safety and/or upper extremity function for ADL' s. Plan of Care: ADL Retraining, Functional Mobility, Group Exercise/Act as Ind, UE Funct Exercise/Act, UE Neuromus Re-Ed/Coord Treatment Duration: Oct 10, 2016 Frequency: At least 5-7 days/Wk (IRF) Estimated Hrs Per Day: 1.5 hours per day Agreement: Yes Rehab Potential: Fair Time/GCodes Start Time: 09:00 Stop Time: 10:00 Total Time Billed (hr/min): 60 Billed Treatment Time 1 visit, ADLx4(60minutes) SU GOMEZ OT Sep 25, 2016 12:22
--- NOTE | 2016-09-25 12:29 | Occupational Ther Daily Note ---
OT Current Status-Daily Note Subjective Pt agrees to treatment. Mental Status/Objective Functional [place] Measure 0=Not Assessed/NA 4=Minimal Assistance 1=Total Assistance 5=Supervision or Setup 2=Maximal Assistance 6=Modified [place] 3=Moderate Assistance 7=Complete [place] ADL-Treatment Functional [place] Measure 0=Not Assessed/NA 4=Minimal Assistance 1=Total Assistance 5=Supervision or Setup 2=Maximal Assistance 6=Modified [place] 3=Moderate Assistance 7=Complete IndependenceIRFPAI Quality Coding Scale 6 Independent with activity with or without an assistive device 5 Patient requires set up or clean up by helper. Patient completes activity by themselves 4 Supervision or touching assist (CGA). [place] provide cues , steadying assist 3 The helper provides less than half the effort to complete the activity 2 The helper provides more than half the effort to complete the activity 1 Dependent. The helper does all the effort to complete an activity 7 Patient refused to complete or attempt activity 9 The patient did not perform the activity before the current illness or injury 88 Not attempted due to Medical conditions or safety concerns Other Treatment Pt sitting in therapy gym with PT prior to session. Gait to room with 4WW, no LOB noted. Pt performed bilateral UE activity to promote increased ROM and strength needed for functional tasks. AAROM x10 reps at bilateral shoulders. Pt has decreased ROM secondary to arthritis. Pt performed biceps curls and triceps extension exercises x10 reps with red theraband. Rest breaks between exercises. Pt completed therapy putty activity with bilateral hands to increase strength and coordination. Pt removed small beads from putty with increased time. Pt sitting in chair with needs met after session. OT Short Term Goals Short Term Goals Time Frame: Sep 26, 2016 Bathing(FIM): 4 Upper Body Dressing(FIM): 5 Lower Body Dressing(FIM): 4 Transfers (B,C,W/C) (FIM): 5 Toilet/Commode Transfer(FIM): 5 Additional Short Term Goals: 1-Demonstrate ADL Tasks, 2-Verbalize Understanding , 3-ImproveStrength/Shamika 1=Demonstrate adherence to instructed precautions during ADL tasks. 2=Patient will verbalize/demonstrate understanding of assistive devices/ modifications for ADL. 3=Patient will improve strength/tolerance for activity to enable patient to perform ADL's. OT Long-Term Goals Long-Term Goals Time Frame: Oct 10, 2016 Eating (FIM): 6 Eating (QC): 6 Groomin Oral Hygiene (QC): 6 Bathing(FIM): 5 Shower/Bathe Self (QC): 5 Upper Body Dressing(FIM): 6 Upper Body Dressing (QC): 6 Lower Body Dressing(FIM): 5 Lower Body Dressing (QC): 5 On/Off Footwear (QC): 5 Toileting(FIM): 6 Toileting Hygiene (QC): 6 Toilet/Commode Transfer(FIM): 6 Toilet/Commode Transfer (QC): 6 Shower Transfer(FIM): 5 Additional Goals: 1-Demonstrate ADL Tasks, 2-Verbalize Understanding, 3- ImproveStrength/Shamika 1=Demonstrate adherence to instructed precautions during ADL tasks. 2=Patient will verbalize/demonstrate understanding of assistive devices/ modifications for ADL. 3=Patient will improve strength/tolerance for activity to enable patient to perform ADL's. OT Education/Plan Problem List/Assessment Pt demonstrates decreased ADL functioning, strength, mobility, and activity tolerance. Pt to benefit from skilled OT intervention for ADL training, transfers, strengthening, and safety education to maximize level of function and allow safe return home. Discharge Recommendations Plan/Recommendations: Continue POC Treatment Plan/Plan of Care Patient would benefit from OT for education, treatment and training to promote independence in ADL's, mobility, safety and/or upper extremity function for ADL' s. Plan of Care: ADL Retraining, Functional Mobility, Group Exercise/Act as Ind, UE Funct Exercise/Act, UE Neuromus Re-Ed/Coord Treatment Duration: Oct 10, 2016 Frequency: At least 5-7 days/Wk (IRF) Estimated Hrs Per Day: 1.5 hours per day Agreement: Yes Rehab Potential: Fair Time/GCodes Start Time: 11:30 Stop Time: 12:00 Total Time Billed (hr/min): 30 Billed Treatment Time 1 visit, EXx2(30minutes) SU GOMEZ OT Sep 25, 2016 12:29
--- NOTE | 2016-09-25 12:40 | Physical Therapy Daily Note ---
PT Daily Note-Current Subjective Pt laying Supine in bed upon arrival. Pt agrees to PT but needs to use restroom before leaving room for tx. Pain Location: No Pain Reported Mental Status Patient Orientation: Person, Place, Time, Situation Attachments: Other-See Comments (Neck brace) Transfers Functional [place] Measure 0=Not Assessed/NA 4=Minimal Assistance 1=Total Assistance 5=Supervision or Setup 2=Maximal Assistance 6=Modified [place] 3=Moderate Assistance 7=Complete IndependenceIRFPAI Quality Coding Scale 6 Independent with activity with or without an assistive device 5 Patient requires set up or clean up by helper. Patient completes activity by themselves 4 Supervision or touching assist (CGA). [place] provide cues , steadying assist 3 The helper provides less than half the effort to complete the activity 2 The helper provides more than half the effort to complete the activity 1 Dependent. The helper does all the effort to complete an activity 7 Patient refused to complete or attempt activity 9 The patient did not perform the activity before the current illness or injury 88 Not attempted due to Medical conditions or safety concerns Scootin Rollin Supine to/from Sit: 6 Sit to/from Stand: 6 Sit to Stand (QC): 6 Weight Bearing Weight Bearing Restriction: Full Weight Bearing Location Restriction: LE Bilateral Gait Training Does the Patient Walk?: Yes Distance (FIM): 3=150 ft Distance: 200' Walk 10 feet (QC): 6 Walk 50 ft with 2 Turns(QC): 6 Walk 150 ft (QC): 6 Gait Level of Assist: 6 Gait Persons Needed: 1 Gait Assistive Device: Walker 4 Wheeled Pt walks with normalized gait pattern, no LOB. Wheelchair Training Does the Pt Use a Wheelchair?: No Exercises Supine Ex: Ankle pumps, Quad Set, Glut sets, Heel Slides, Straight leg raise, Hip abd/add Supine Reps: 10 NuStep Minutes: 10 NuStep Workload: 5 Treatments Pt transferred from Supine to EOB to Standing using 4WW at Mod I. Pt used restroom independently. Pt ambulated using 4WW at Mod I. Pt completed Supine Ex on mat to work on strengthening and bed mobility followed by NuStep for 10m at Workload 5. OT then took pt back to room at end of tx. Assessment Current Status: Good Progress Pt has made progress with ambulation, strength, transfers and activity tolerance. PT Short Term Goals Short Term Goals Time Frame: Sep 26, 2016 Transfers (B,C,W/C) (FIM): 5 Gait (FIM): 5 Gait Distance Comment: 200' Gait Level of Assist: 5 Gait Assistive Device: FWW PT Meat Apprentice Goals Alf Goals PT Alf Goals Time Frame: Oct 10, 2016 Transfers (B,C,W/C) (FIM): 6 Sit to Lying (QC): 6 Lying-Sitting on Side/Bed(QC): 6 Sit to Stand (QC): 6 Rollin Roll Left to Right (QC): 6 Chair/Psl-qx-Ceqwi Xfer(QC): 6 Car Transfer (QC): 4 Gait (FIM): 6 Distance: 300' Walk 10 feet (QC): 6 Walk 10ft-Uneven Surface(QC): 6 Walk 50ft with 2 Turns (QC): 6 Walk 150 ft (QC): 6 Gait Level of Assist: 6 Gait Assistive Device: FWW Stairs (FIM): 2 # of Steps: 4 1 Step (curb) (QC): 4 4 Steps (QC): 4 Stairs Level Of Assist: 4 PT Plan Problem List Problem List: Activity Tolerance, Functional Strength, Gait Treatment/Plan Treatment Plan: Continue Plan of Care Treatment Plan: Bed Mobility, Education, Functional Activity Shamika, Functional Strength, Group Therapy, Gait, Safety, Therapeutic Exercise, Transfers Treatment Duration: Oct 10, 2016 Frequency: At least 5-7 days/Wk (IRF) Estimated Hrs Per Day: 1.5 hours per day Patient and/or Family Agrees t: Yes Safety Risks/Education Patient Education: Gait Training, Correct Positioning, Safety Issues Teaching Recipient: Patient Teaching Methods: Discussion Response to Teaching: Verbalize Understanding Time/GCodes Time In: 1055 Time Out: 1140 Total Billed Treatment Time: 45 Total Billed Treatment visit, EX x2 (30m) & FA (15m) DANDRE LEON PTA Sep 25, 2016 12:40
--- NOTE | 2016-09-25 16:49 | Physical Therapy Daily Note ---
PT Daily Note-Current Subjective Pt laying Supine in bed upon arrival. Pt agrees to PT but wants to use restroom first. Pain Numeric Pain Scale: 3 Location: Right Location Body Site: Thigh Pain Description: Ache Mental Status Patient Orientation: Person, Place, Time, Situation Attachments: Other-See Comments (Neck brace) Transfers Functional [place] Measure 0=Not Assessed/NA 4=Minimal Assistance 1=Total Assistance 5=Supervision or Setup 2=Maximal Assistance 6=Modified [place] 3=Moderate Assistance 7=Complete IndependenceIRFPAI Quality Coding Scale 6 Independent with activity with or without an assistive device 5 Patient requires set up or clean up by helper. Patient completes activity by themselves 4 Supervision or touching assist (CGA). [place] provide cues , steadying assist 3 The helper provides less than half the effort to complete the activity 2 The helper provides more than half the effort to complete the activity 1 Dependent. The helper does all the effort to complete an activity 7 Patient refused to complete or attempt activity 9 The patient did not perform the activity before the current illness or injury 88 Not attempted due to Medical conditions or safety concerns Scootin Rollin Roll Left to Right (QC): 6 Supine to/from Sit: 6 Sit to/from Stand: 6 Sit to Lying (QC): 6 Sit to Stand (QC): 6 Weight Bearing Weight Bearing Restriction: Full Weight Bearing Location Restriction: LE Bilateral Gait Training Does the Patient Walk?: Yes Distance (FIM): 3=150 ft Distance: 200' Walk 10 feet (QC): 6 Walk 50 ft with 2 Turns(QC): 6 Walk 150 ft (QC): 6 Gait Level of Assist: 6 Gait Persons Needed: 1 Gait Assistive Device: Walker 4 Wheeled Pt walks with normalized gait pattern, steady & no LOB. Wheelchair Training Does the Pt Use a Wheelchair?: No Stair Training Stair Training: Handrails/: 2 handrails #of Steps: 4 1 Step (curb) (QC): 5 4 Steps (QC): 5 Stairs: Pattern: Step to Level of Assist: 5 Exercises Seated Therapy Exercises: Ankle pumps, Long arc quads, Hip flexion, Kicking activity Seated Reps: 15 Treatments Pt transferred from supine to EOB to standing using 4WW at Mod I. Pt uses restroom before leaving room for tx. Pt ambulated using 4WW at Mod I. Pt completed 1 set of 4 stairs as well as Seated Ex before returning to room to rest in bed at end of tx. Pt has all needs met. Assessment Current Status: Good Progress Pt is Mod I with transfers and mobility. PT Short Term Goals Short Term Goals Time Frame: Sep 26, 2016 Transfers (B,C,W/C) (FIM): 5 Gait (FIM): 5 Gait Distance Comment: 200' Gait Level of Assist: 5 Gait Assistive Device: FWW PT Multi Slide Machine Tender Goals Snf Goals PT Snf Goals Time Frame: Oct 10, 2016 Transfers (B,C,W/C) (FIM): 6 Sit to Lying (QC): 6 Lying-Sitting on Side/Bed(QC): 6 Sit to Stand (QC): 6 Rollin Roll Left to Right (QC): 6 Chair/Omk-iv-Zdcft Xfer(QC): 6 Car Transfer (QC): 4 Gait (FIM): 6 Distance: 300' Walk 10 feet (QC): 6 Walk 10ft-Uneven Surface(QC): 6 Walk 50ft with 2 Turns (QC): 6 Walk 150 ft (QC): 6 Gait Level of Assist: 6 Gait Assistive Device: FWW Stairs (FIM): 2 # of Steps: 4 1 Step (curb) (QC): 4 4 Steps (QC): 4 Stairs Level Of Assist: 4 PT Plan Problem List Problem List: Activity Tolerance Treatment/Plan Treatment Plan: Continue Plan of Care Treatment Plan: Bed Mobility, Education, Functional Activity Shamika, Functional Strength, Group Therapy, Gait, Safety, Therapeutic Exercise, Transfers Treatment Duration: Oct 10, 2016 Frequency: At least 5-7 days/Wk (IRF) Estimated Hrs Per Day: 1.5 hours per day Patient and/or Family Agrees t: Yes Safety Risks/Education Patient Education: Gait Training, Transfer Techniques, Correct Positioning, Safety Issues Teaching Recipient: Patient Teaching Methods: Discussion Response to Teaching: Verbalize Understanding Time/GCodes Time In: 1445 Time Out: 1530 Total Billed Treatment Time: 45 Total Billed Treatment visit, GT (15m) & FA x2 (30m) DANDRE LEON CONVEYOR FEEDER Sep 25, 2016 16:49
[2016-09-25 17:34] VITALS: BP 138/74
[2016-09-25] MEDS: POLYETHYLENE GLYCOL 17 GM (MIRALAX) PACK PO SCH (20:12)
[2016-09-25] MEDS: FENTANYL PATCH REMOVAL TP SCH (21:29)
[2016-09-25] MEDS: fentaNYL PATCH 50 MCG (DURAGESIC) TOP SCH (21:29)
[2016-09-26 05:15] VITALS: BP 162/78
[2016-09-26] MEDS: MULTIVIT W/MINERALS TAB (THERAGRAN M) PO SCH (06:21)
[2016-09-26] MEDS: SUCRALFATE 1 GM (CARAFATE) TAB PO SCH ×4 (06:21→20:03)
[2016-09-26] MEDS: CALCIUM CARB + VIT D 600 MG (CALCARB + D) TAB PO SCH ×2 (06:21→16:27)
[2016-09-26] MEDS: PANTOPRAZOLE 40 MG (PROTONIX) TAB PO SCH ×2 (06:21→20:04)
[2016-09-26] MEDS: TROSPIUM 20 MG (SANCTURA) TAB PO SCH ×2 (06:21→16:28)
[2016-09-26] MEDS: DOCUSATE SODIUM 100 MG (COLACE) CAP PO SCH ×2 (08:59→20:03)
[2016-09-26] MEDS: SENNA W/DOCUSATE (SENOKOT S) TABLET PO SCH ×2 (08:59→20:04)
[2016-09-26] MEDS: VITAMIN D3 1,000 UNITS (CHOLECALCIFEROL) TABLET PO SCH ×2 (08:59→20:04)
[2016-09-26] MEDS: DICLOFENAC 1% GEL 100 GM (VOLTAREN) TUBE TOP SCH ×4 (09:00→20:06)
--- NOTE | 2016-09-26 10:31 | Physical Therapy Daily Note ---
PT Daily Note-Current Subjective Pt. recently moved to [facility] apt. Asks if she can now be up ad bacilio. Pt. was upgraded to up ad bacilio at end of Rx. Pain Numeric Pain Scale: 4 Location: Right Location Body Site: Shoulder Pain Description: Ache Mental Status Patient Orientation: Normal For Age Transfers Functional [place] Measure 0=Not Assessed/NA 4=Minimal Assistance 1=Total Assistance 5=Supervision or Setup 2=Maximal Assistance 6=Modified [place] 3=Moderate Assistance 7=Complete IndependenceIRFPAI Quality Coding Scale 6 Independent with activity with or without an assistive device 5 Patient requires set up or clean up by helper. Patient completes activity by themselves 4 Supervision or touching assist (CGA). [place] provide cues , steadying assist 3 The helper provides less than half the effort to complete the activity 2 The helper provides more than half the effort to complete the activity 1 Dependent. The helper does all the effort to complete an activity 7 Patient refused to complete or attempt activity 9 The patient did not perform the activity before the current illness or injury 88 Not attempted due to Medical conditions or safety concerns Transfers (B, C, W/C) (FIM): 6 Scootin Rollin Supine to/from Sit: 6 Sit to/from Stand: 6 Bed to/from Chair: 6 Gait Training Does the Patient Walk?: Yes Gait (FIM): 6 Distance (FIM): 3=150 ft (350x2) Gait Level of Assist: 6 Gait Persons Needed: 0 Gait Assistive Device: Walker 4 Wheeled up ad bacilio no LOB Stair Training Stair Training: Handrails/: 2 handrails Stairs (FIM): 5 #of Steps: 4 Stairs: Pattern: Step to Level of Assist: 5 Exercises Standing: Hip Abduction, Hamstring curls, Heel/toe raises, Marching, Mini squats, Side steps Standing Reps: 12 leg presses on Nustep x10 NuStep Minutes: 8 NuStep Workload: 2 Assessment Current Status: Excellent Progress up ad bacilio less pain c/o, less edema PT Short Term Goals Short Term Goals Time Frame: Sep 26, 2016 Transfers (B,C,W/C) (FIM): 5 Gait (FIM): 5 Gait Distance Comment: 200' Gait Level of Assist: 5 Gait Assistive Device: FWW PT Prison Goals Solar Energy Technician Goals PT Solar Energy Technician Goals Time Frame: Oct 10, 2016 Transfers (B,C,W/C) (FIM): 6 Sit to Lying (QC): 6 Lying-Sitting on Side/Bed(QC): 6 Sit to Stand (QC): 6 Rollin Roll Left to Right (QC): 6 Chair/Usz-ss-Yyxbd Xfer(QC): 6 Car Transfer (QC): 4 Gait (FIM): 6 Distance: 300' Walk 10 feet (QC): 6 Walk 10ft-Uneven Surface(QC): 6 Walk 50ft with 2 Turns (QC): 6 Walk 150 ft (QC): 6 Gait Level of Assist: 6 Gait Assistive Device: FWW Stairs (FIM): 2 # of Steps: 4 1 Step (curb) (QC): 4 4 Steps (QC): 4 Stairs Level Of Assist: 4 PT Plan Treatment/Plan Treatment Plan: Continue Plan of Care Treatment Plan: Bed Mobility, Education, Functional Activity Shamika, Functional Strength, Group Therapy, Gait, Safety, Therapeutic Exercise, Transfers Treatment Duration: Oct 10, 2016 Frequency: At least 5-7 days/Wk (IRF) Estimated Hrs Per Day: 1.5 hours per day Patient and/or Family Agrees t: Yes Safety Risks/Education Patient Education: Gait Training, Transfer Techniques, Steps, Correct Positioning, Safety Issues Teaching Recipient: Patient Teaching Methods: Demonstration, Discussion Response to Teaching: Verbalize Understanding, Return Demonstration Time/GCodes Time In: 930 Time Out: 1015 Total Billed Treatment Time: 45 Total Billed Treatment 1EX25m,FA20m G Codes Necessary: JULIANNE Inman CHARGE ACCOUNT CLERK Sep 26, 2016 10:30
--- NOTE | 2016-09-26 11:58 | Occupational Ther Daily Note ---
OT Current Status-Daily Note Subjective Pt in bed, agrees to treatment. Mental Status/Objective Functional [place] Measure 0=Not Assessed/NA 4=Minimal Assistance 1=Total Assistance 5=Supervision or Setup 2=Maximal Assistance 6=Modified [place] 3=Moderate Assistance 7=Complete [place] ADL-Treatment Pt requests shower this morning. Supine to sit with modified independence. Sit to stand with modified independence. Pt retrieved clothing from closet with 4WW , no LOB noted. Gait to restroom with 4WW. Transfer to toilet with modified independence. Pt able to manage hygiene and clothing with modified independence. Doff clothing without assistance. Uses engine designer to doff underwear, pants, and socks. Transfer to tub/shower using extended shower bench with SBA. Pt able to wash/dry all areas with modified independence. Uses hand held shower and long handled sponge. Uses engine designer to dry feet. Don bra by starting it over feet with engine designer and standing to pull up over hips and is able to thread bilateral UE through straps. Don pullover shirt with modified independence. Pt uses engine designer to start underwear and pants over feet. Stood with modified independence for pant hike. Pt used sock aid to don compression socks. Pt unable to pull socks up all the way with sock aid and has difficulty reaching feet to pull socks up. Pt requires minimal assistance to complete task. Pt able to place feet in shoes using engine designer, but requires assist to slide heel into shoe. Pt combed hair with modified independence. Increased time required for ADL task completion. Transfer to bed with modified independence. Pt in bed with needs met after session. Functional [place] Measure 0=Not Assessed/NA 4=Minimal Assistance 1=Total Assistance 5=Supervision or Setup 2=Maximal Assistance 6=Modified [place] 3=Moderate Assistance 7=Complete IndependenceIRFPAI Quality Coding Scale 6 Independent with activity with or without an assistive device 5 Patient requires set up or clean up by helper. Patient completes activity by themselves 4 Supervision or touching assist (CGA). [place] provide cues , steadying assist 3 The helper provides less than half the effort to complete the activity 2 The helper provides more than half the effort to complete the activity 1 Dependent. The helper does all the effort to complete an activity 7 Patient refused to complete or attempt activity 9 The patient did not perform the activity before the current illness or injury 88 Not attempted due to Medical conditions or safety concerns Grooming (FIM): 6 Bathing (FIM): 6 Shower/Bathe Self (QC): 6 Upper Body (FIM): 6 Upper Body Dressing (QC): 6 Lower Body Dressing (FIM): 4 Lower Body Dressing (QC): 3 On/Off Footwear (QC): 3 Toileting (FIM): 6 Toileting Hygiene (QC): 6 Toilet/Commode Transfer (FIM): 6 Toilet Transfer (QC): 6 Tub Transfer(FIM): 5 OT Short Term Goals Short Term Goals Time Frame: Sep 26, 2016 Bathing(FIM): 4 Upper Body Dressing(FIM): 5 Lower Body Dressing(FIM): 4 Transfers (B,C,W/C) (FIM): 5 Toilet/Commode Transfer(FIM): 5 Additional Short Term Goals: 1-Demonstrate ADL Tasks, 2-Verbalize Understanding , 3-ImproveStrength/Shamika 1=Demonstrate adherence to instructed precautions during ADL tasks. 2=Patient will verbalize/demonstrate understanding of assistive devices/ modifications for ADL. 3=Patient will improve strength/tolerance for activity to enable patient to perform ADL's. OT Compliance Vice President Goals Care Home Goals Time Frame: Oct 10, 2016 Eating (FIM): 6 Eating (QC): 6 Groomin Oral Hygiene (QC): 6 Bathing(FIM): 5 Shower/Bathe Self (QC): 5 Upper Body Dressing(FIM): 6 Upper Body Dressing (QC): 6 Lower Body Dressing(FIM): 5 Lower Body Dressing (QC): 5 On/Off Footwear (QC): 5 Toileting(FIM): 6 Toileting Hygiene (QC): 6 Toilet/Commode Transfer(FIM): 6 Toilet/Commode Transfer (QC): 6 Shower Transfer(FIM): 5 Additional Goals: 1-Demonstrate ADL Tasks, 2-Verbalize Understanding, 3- ImproveStrength/Shamika 1=Demonstrate adherence to instructed precautions during ADL tasks. 2=Patient will verbalize/demonstrate understanding of assistive devices/ modifications for ADL. 3=Patient will improve strength/tolerance for activity to enable patient to perform ADL's. OT Education/Plan Problem List/Assessment Pt demonstrates decreased ADL functioning, strength, mobility, and activity tolerance. Pt to benefit from skilled OT intervention for ADL training, transfers, strengthening, and safety education to maximize level of function and allow safe return home. Discharge Recommendations Plan/Recommendations: Continue POC Treatment Plan/Plan of Care Patient would benefit from OT for education, treatment and training to promote independence in ADL's, mobility, safety and/or upper extremity function for ADL' s. Plan of Care: ADL Retraining, Functional Mobility, Group Exercise/Act as Ind, UE Funct Exercise/Act, UE Neuromus Re-Ed/Coord Treatment Duration: Oct 10, 2016 Frequency: At least 5-7 days/Wk (IRF) Estimated Hrs Per Day: 1.5 hours per day Agreement: Yes Rehab Potential: Fair Time/GCodes Start Time: 08:00 Stop Time: 09:10 Total Time Billed (hr/min): 70 Billed Treatment Time 1 visit, ADLx5(70minutes) SU GOMEZ OT Sep 26, 2016 11:58
--- NOTE | 2016-09-26 14:55 | Therapy Group Daily Note ---
Therapy Daily Group Note Exercises Fine Motor Other/Notes Pt up ad bacilio, used 4WW to ambulated to OT/PT group. Group consisted of introductions (name, place living, first dollar earned), socialization, table top activities that promoted fine motor and cognitive skills and peer interaction. Pt contributed to group discussion and assisted other pt's in activity when needed. Pt demonstrated increased UE control with gross grasp and reaching to place item in designated area. Pt demonstrated good cognitive skills and interacted with each peer affectively and courteously. After therapy , pt ambulated with 4WW to room. Call light/phone in reach. All needs met in room. Start Time: 13:00 Stop Time: 14:20 Total Billed Treatment Time: 80 Total Billed Treatment 1-GRP ORA GLEASON Sep 26, 2016 14:55
--- NOTE | 2016-09-26 16:22 | PM & R (SOAP) Progress Note ---
Subjective Time Seen by Provider: 15:10 Subjective/Events-last exam Patient was seen in her room this afternoon Patient moved to apartment as she is doing so much better Swelling and pain down and Patient Modified Independent for transfers with her 4 wheeled walker Objective Exam Last Set of Vital Signs Vital Signs Date Time Temp Pulse Resp B/P (MAP) Pulse Ox O2 Delivery O2 Flow Rate FiO2 09/26/16 09:33 Room Air 09/26/16 05:15 97.5 79 16 162/78 100 Capillary Refill : I&O Intake and Output 09/26/16 00:00 Intake Total 1600 ml Balance 1600 ml Intake Oral 1600 ml # Voids 8 # Bowel Movements 3 General: Alert, Oriented X3, Cooperative, No Acute Distress HEENT: Atraumatic, PERRLA, EOMI, Mucous Memb Moist/[place] Neck: Supple, No JVD Lungs: Clear to Auscultation Heart: Regular Rate Abdomen: Normal Bowel Sounds, Soft, No Tenderness Extremities: Other (plus edema rt calf associated with tenderness and ecchymosis) Skin: Other (as per above) Neuro: Other (Decreased sensation to light touch both feet Impaired strength rt LE due to pain and swelling rt calf OA changes both PIPS of hands) Psych/Mental Status: Mental Status NL Results Lab Laboratory Tests 09/24/16 05:56: Glucometer 97 09/25/16 06:25: Sodium Level 131L, Potassium Level 4.0, Chloride Level 99, Carbon Dioxide Level 21, Anion Gap 11, Blood Urea Nitrogen 11, Creatinine 0.52L, Estimat Glomerular Filtration Rate > 60, BUN/Creatinine Ratio 21, Glucose Level 83, Calcium Level 7.4L, Total Bilirubin 0.9, Aspartate Amino Transf (AST/SGOT) 19, Alanine Aminotransferase (ALT/SGPT) 17, Alkaline Phosphatase 69, Total Protein 5.3L, Albumin 2.5L Assessment/Plan Assessment 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 Hyponatremia-stable Plan Continue PT/OT/Pain Management F/U with DR Byrd and Zarina as per their schedule Checked F/U labs Checked Doppler Pain management Team Conference 09-24-16-See report for full functional update and POC and ELOS Discharge tentatively set for next week 10/01/16 BERE BEAN MD Sep 26, 2016 16:22
[2016-09-26] MEDS: POLYETHYLENE GLYCOL 17 GM (MIRALAX) PACK PO SCH (20:03)
[2016-09-27 05:32] VITALS: BP 167/78
[2016-09-27] MEDS: CALCIUM CARB + VIT D 600 MG (CALCARB + D) TAB PO SCH ×2 (06:12→18:02)
[2016-09-27] MEDS: MULTIVIT W/MINERALS TAB (THERAGRAN M) PO SCH (06:12)
[2016-09-27] MEDS: PANTOPRAZOLE 40 MG (PROTONIX) TAB PO SCH ×2 (06:12→20:04)
[2016-09-27] MEDS: SUCRALFATE 1 GM (CARAFATE) TAB PO SCH ×4 (06:12→20:03)
[2016-09-27] MEDS: TROSPIUM 20 MG (SANCTURA) TAB PO SCH ×2 (06:12→16:52)
[2016-09-27] MEDS: DOCUSATE SODIUM 100 MG (COLACE) CAP PO SCH ×2 (09:59→20:04)
[2016-09-27] MEDS: SENNA W/DOCUSATE (SENOKOT S) TABLET PO SCH ×2 (09:59→20:03)
[2016-09-27] MEDS: VITAMIN D3 1,000 UNITS (CHOLECALCIFEROL) TABLET PO SCH ×2 (09:59→20:04)
[2016-09-27] MEDS: DICLOFENAC 1% GEL 100 GM (VOLTAREN) TUBE TOP SCH ×4 (09:59→20:05)
[2016-09-27] MEDS: CATHETER FLUSH 10 ML SYR IV SCH ×2 (10:24→21:19)
--- NOTE | 2016-09-27 12:13 | Physical Therapy Daily Note ---
PT Daily Note-Current Subjective Pt reports she is doing well. Pain rated 5/10 in the (R) side from shoulder to her leg. Pt agrees to PT. Mental Status Patient Orientation: Person, Place, Situation Transfers Functional [place] Measure 0=Not Assessed/NA 4=Minimal Assistance 1=Total Assistance 5=Supervision or Setup 2=Maximal Assistance 6=Modified [place] 3=Moderate Assistance 7=Complete IndependenceIRFPAI Quality Coding Scale 6 Independent with activity with or without an assistive device 5 Patient requires set up or clean up by helper. Patient completes activity by themselves 4 Supervision or touching assist (CGA). [place] provide cues , steadying assist 3 The helper provides less than half the effort to complete the activity 2 The helper provides more than half the effort to complete the activity 1 Dependent. The helper does all the effort to complete an activity 7 Patient refused to complete or attempt activity 9 The patient did not perform the activity before the current illness or injury 88 Not attempted due to Medical conditions or safety concerns Transfers and bed mob mod (I) Gait Training Gait Assistive Device: FWW PT amb with 4ww and SBA x 300ft at steady speed. Exercises Supine Ex: Ankle pumps, Quad Set, Heel Slides Supine Reps: 15 Assessment Current Status: Good Progress Pt harini well. No unsteadiness noted, good performance. Pt back to bed with call light and all needs met. PT Short Term Goals Short Term Goals Time Frame: Sep 26, 2016 Transfers (B,C,W/C) (FIM): 5 Gait (FIM): 5 Gait Distance Comment: 200' Gait Level of Assist: 5 Gait Assistive Device: FWW PT Mcfp Goals Leather Crafter Goals PT Mcfp Goals Time Frame: Oct 10, 2016 Transfers (B,C,W/C) (FIM): 6 Sit to Lying (QC): 6 Lying-Sitting on Side/Bed(QC): 6 Sit to Stand (QC): 6 Rollin Roll Left to Right (QC): 6 Chair/Aoz-bw-Gmmfg Xfer(QC): 6 Car Transfer (QC): 4 Gait (FIM): 6 Distance: 300' Walk 10 feet (QC): 6 Walk 10ft-Uneven Surface(QC): 6 Walk 50ft with 2 Turns (QC): 6 Walk 150 ft (QC): 6 Gait Level of Assist: 6 Gait Assistive Device: FWW Stairs (FIM): 2 # of Steps: 4 1 Step (curb) (QC): 4 4 Steps (QC): 4 Stairs Level Of Assist: 4 PT Plan Treatment/Plan Treatment Plan: Continue Plan of Care Treatment Plan: Bed Mobility, Education, Functional Activity Shamika, Functional Strength, Group Therapy, Gait, Safety, Therapeutic Exercise, Transfers Treatment Duration: Oct 10, 2016 Frequency: At least 5-7 days/Wk (IRF) Estimated Hrs Per Day: 1.5 hours per day Patient and/or Family Agrees t: Yes Time/GCodes Time In: 1110 Time Out: 1125 Total Billed Treatment Time: 15 Total Billed Treatment 1, gait x 15min LY GOLDSTEIN CPTA Sep 27, 2016 12:13
[2016-09-27 17:24] VITALS: BP 159/79
[2016-09-27] MEDS: FUROSEMIDE 20 MG (LASIX) TAB PO PRN (18:02)
[2016-09-27] MEDS: KCL 10 MEQ TAB (MICRO K) PO PRN (18:02)
[2016-09-27] MEDS: POLYETHYLENE GLYCOL 17 GM (MIRALAX) PACK PO SCH (20:03)
[2016-09-28] MEDS: CALCIUM CARB + VIT D 600 MG (CALCARB + D) TAB PO SCH ×2 (05:58→16:48)
[2016-09-28] MEDS: PANTOPRAZOLE 40 MG (PROTONIX) TAB PO SCH ×2 (05:58→20:37)
[2016-09-28] MEDS: SUCRALFATE 1 GM (CARAFATE) TAB PO SCH ×4 (05:58→20:36)
[2016-09-28] MEDS: MULTIVIT W/MINERALS TAB (THERAGRAN M) PO SCH (05:58)
[2016-09-28] MEDS: CATHETER FLUSH 10 ML SYR IV SCH ×3 (05:59→20:37)
[2016-09-28] MEDS: TROSPIUM 20 MG (SANCTURA) TAB PO SCH ×2 (06:03→16:48)
[2016-09-28 06:12] VITALS: BP 176/88
[2016-09-28] MEDS: SENNA W/DOCUSATE (SENOKOT S) TABLET PO SCH ×2 (08:01→20:36)
[2016-09-28] MEDS: VITAMIN D3 1,000 UNITS (CHOLECALCIFEROL) TABLET PO SCH ×2 (08:01→20:37)
[2016-09-28] MEDS: DOCUSATE SODIUM 100 MG (COLACE) CAP PO SCH ×2 (08:01→20:37)
[2016-09-28] MEDS: DICLOFENAC 1% GEL 100 GM (VOLTAREN) TUBE TOP SCH ×4 (08:03→20:38)
[2016-09-28] MEDS: FUROSEMIDE 20 MG (LASIX) TAB PO PRN (08:07)
[2016-09-28] MEDS: KCL 10 MEQ TAB (MICRO K) PO PRN (08:07)
[2016-09-28 17:57] VITALS: BP 164/88
[2016-09-28] MEDS: POLYETHYLENE GLYCOL 17 GM (MIRALAX) PACK PO SCH (20:36)
[2016-09-28] MEDS: fentaNYL PATCH 50 MCG (DURAGESIC) TOP SCH (20:37)
[2016-09-28] MEDS: FENTANYL PATCH REMOVAL TP SCH (20:37)
[2016-09-29 05:23] VITALS: BP_SYST 171; BP_SYST 173; BP_DIAS 83
[2016-09-29] MEDS: TROSPIUM 20 MG (SANCTURA) TAB PO SCH ×2 (06:12→17:28)
[2016-09-29] MEDS: PANTOPRAZOLE 40 MG (PROTONIX) TAB PO SCH ×2 (06:12→21:46)
[2016-09-29] MEDS: MULTIVIT W/MINERALS TAB (THERAGRAN M) PO SCH (06:12)
[2016-09-29] MEDS: CALCIUM CARB + VIT D 600 MG (CALCARB + D) TAB PO SCH ×2 (06:12→17:28)
[2016-09-29] MEDS: SUCRALFATE 1 GM (CARAFATE) TAB PO SCH ×4 (06:12→21:46)
[2016-09-29] MEDS: CATHETER FLUSH 10 ML SYR IV SCH ×3 (06:15→21:47)
[2016-09-29] MEDS: KCL 10 MEQ TAB (MICRO K) PO PRN (08:58)
[2016-09-29] MEDS: VITAMIN D3 1,000 UNITS (CHOLECALCIFEROL) TABLET PO SCH ×2 (08:58→21:46)
[2016-09-29] MEDS: FUROSEMIDE 20 MG (LASIX) TAB PO PRN (08:58)
[2016-09-29] MEDS: DOCUSATE SODIUM 100 MG (COLACE) CAP PO SCH ×2 (08:58→21:46)
[2016-09-29] MEDS: SENNA W/DOCUSATE (SENOKOT S) TABLET PO SCH ×2 (08:58→21:46)
[2016-09-29] MEDS: DICLOFENAC 1% GEL 100 GM (VOLTAREN) TUBE TOP SCH ×4 (08:59→21:51)
--- NOTE | 2016-09-29 11:18 | Physical Therapy Daily Note ---
PT Daily Note-Current Subjective Pt. states she is looking forward to going home tomorrow. Feels confident she can manage all with her family assist Pain Numeric Pain Scale: 0-No Pain Mental Status Patient Orientation: Normal For Age Transfers Functional [place] Measure 0=Not Assessed/NA 4=Minimal Assistance 1=Total Assistance 5=Supervision or Setup 2=Maximal Assistance 6=Modified [place] 3=Moderate Assistance 7=Complete IndependenceIRFPAI Quality Coding Scale 6 Independent with activity with or without an assistive device 5 Patient requires set up or clean up by helper. Patient completes activity by themselves 4 Supervision or touching assist (CGA). [place] provide cues , steadying assist 3 The helper provides less than half the effort to complete the activity 2 The helper provides more than half the effort to complete the activity 1 Dependent. The helper does all the effort to complete an activity 7 Patient refused to complete or attempt activity 9 The patient did not perform the activity before the current illness or injury 88 Not attempted due to Medical conditions or safety concerns Transfers (B, C, W/C) (FIM): 6 Scootin Rollin Roll Left to Right (QC): 6 Supine to/from Sit: 6 Sit to/from Stand: 6 Sit to Lying (QC): 6 Sit to Stand (QC): 6 Chair/Ufz-pp-Wlxcg Xfer(QC): 6 Bed to/from Chair: 6 Weight Bearing Weight Bearing Restriction: Weight Bearing/Tolerated Gait Training Does the Patient Walk?: Yes Gait (FIM): 6 Distance (FIM): 3=150 ft (250x3) Walk 10 feet (QC): 6 Walk 50 ft with 2 Turns(QC): 6 Walk 150 ft (QC): 6 Walking 10ft/uneven surface-QC: 6 Gait Level of Assist: 6 Gait Persons Needed: 0 Gait Assistive Device: FWW Stair Training Stair Training: Handrails/: 2 handrails Stairs (FIM): 5 #of Steps: 4 1 Step (curb) (QC): 5 Stairs: Pattern: Step to Level of Assist: 5 Exercises Supine Ex: Bridging, Ankle pumps, Quad Set, Rolling, Glut sets, Heel Slides, Short Arc Quads, Straight leg raise, Hip abd/add Supine Reps: 12 NuStep Minutes: 8 NuStep Workload: 2 Assessment Current Status: Good Progress meets goals PT Short Term Goals Short Term Goals Time Frame: Sep 26, 2016 Transfers (B,C,W/C) (FIM): 5 Gait (FIM): 5 Gait Distance Comment: 200' Gait Level of Assist: 5 Gait Assistive Device: FWW PT Assisted Goals Manager Basketball Goals PT Manager Basketball Goals Time Frame: Oct 10, 2016 Transfers (B,C,W/C) (FIM): 6 Sit to Lying (QC): 6 Lying-Sitting on Side/Bed(QC): 6 Sit to Stand (QC): 6 Rollin Roll Left to Right (QC): 6 Chair/Edf-mz-Yqths Xfer(QC): 6 Car Transfer (QC): 4 Gait (FIM): 6 Distance: 300' Walk 10 feet (QC): 6 Walk 10ft-Uneven Surface(QC): 6 Walk 50ft with 2 Turns (QC): 6 Walk 150 ft (QC): 6 Gait Level of Assist: 6 Gait Assistive Device: FWW Stairs (FIM): 2 # of Steps: 4 1 Step (curb) (QC): 4 4 Steps (QC): 4 Stairs Level Of Assist: 4 PT Plan Treatment/Plan Treatment Plan: Continue Plan of Care Treatment Plan: Bed Mobility, Education, Functional Activity Shamika, Functional Strength, Group Therapy, Gait, Safety, Therapeutic Exercise, Transfers Treatment Duration: Oct 10, 2016 Frequency: At least 5-7 days/Wk (IRF) Estimated Hrs Per Day: 1.5 hours per day Patient and/or Family Agrees t: Yes Safety Risks/Education Patient Education: Gait Training, Transfer Techniques, Steps Teaching Recipient: Patient Teaching Methods: Demonstration, Discussion Response to Teaching: Verbalize Understanding, Return Demonstration Time/GCodes Time In: 930 Time Out: 1015 Total Billed Treatment Time: 45 Total Billed Treatment 1,GT15m,FA15m,EX15m G Codes Necessary: JULIANNE Inman CUSTOMER DEVELOPMENT MANAGER Sep 29, 2016 11:18
--- NOTE | 2016-09-29 11:21 | Occupational Ther Daily Note ---
OT Current Status-Daily Note Subjective Pt in bed, agrees to treatment. Pt reports 3/10 right UE/LE pain. Mental Status/Objective Functional [place] Measure 0=Not Assessed/NA 4=Minimal Assistance 1=Total Assistance 5=Supervision or Setup 2=Maximal Assistance 6=Modified [place] 3=Moderate Assistance 7=Complete [place] ADL-Treatment Pt supine to sit with modified independence. Pt retrieved clothing from closet with 4WW, no LOB noted. Gait to restroom with 4WW. Transfer to toilet with modified independence. Pt able to complete toileting hygiene and clothing management with modified independence. Pt doffed clothing with modified independence. Used java software developer to doff underwear, pants, and socks. Transfer to shower with modified independence using extended shower bench. Pt able to wash/ dry all areas with modified independence. Uses long handled sponge to wash feet and uses java software developer and towel to dry feet. Pt fastened bra in front and then turned it around and pulled straps over shoulders with modified independence. Don pullover shirt with modified independence. Pt used java software developer to start underwear and pants over feet. Stood with modified independence for pant hike. Pt used sock aid to pull compression socks over feet. Pt then able to pull up the rest of the way using hands. Pt has difficulty putting socks on sock aid, and requires increased time. Pt able to don left shoe with java software developer and long handled shoe horn. Requires minimal assistance to don right shoe. Pt combed hair with modified independence. States she has already been up and brushed teeth without assistance this morning. Pt sitting in chair with needs met after session. Functional [place] Measure 0=Not Assessed/NA 4=Minimal Assistance 1=Total Assistance 5=Supervision or Setup 2=Maximal Assistance 6=Modified [place] 3=Moderate Assistance 7=Complete IndependenceIRFPAI Quality Coding Scale 6 Independent with activity with or without an assistive device 5 Patient requires set up or clean up by helper. Patient completes activity by themselves 4 Supervision or touching assist (CGA). [place] provide cues , steadying assist 3 The helper provides less than half the effort to complete the activity 2 The helper provides more than half the effort to complete the activity 1 Dependent. The helper does all the effort to complete an activity 7 Patient refused to complete or attempt activity 9 The patient did not perform the activity before the current illness or injury 88 Not attempted due to Medical conditions or safety concerns Eating (FIM): 7 (Pt reports feeding self, cutting food, and managing containers without assistance.) Eating (QC): 6 Grooming (FIM): 6 Oral Hygiene (QC): 6 Bathing (FIM): 6 Shower/Bathe Self (QC): 6 Upper Body (FIM): 6 Upper Body Dressing (QC): 6 Lower Body Dressing (FIM): 4 Lower Body Dressing (QC): 6 On/Off Footwear (QC): 3 Toileting (FIM): 6 Toileting Hygiene (QC): 6 Toilet/Commode Transfer (FIM): 6 Toilet Transfer (QC): 6 Tub Transfer(FIM): 6 OT Short Term Goals Short Term Goals Time Frame: Sep 26, 2016 Bathing(FIM): 4 Upper Body Dressing(FIM): 5 Lower Body Dressing(FIM): 4 Transfers (B,C,W/C) (FIM): 5 Toilet/Commode Transfer(FIM): 5 Additional Short Term Goals: 1-Demonstrate ADL Tasks, 2-Verbalize Understanding , 3-ImproveStrength/Shamika 1=Demonstrate adherence to instructed precautions during ADL tasks. 2=Patient will verbalize/demonstrate understanding of assistive devices/ modifications for ADL. 3=Patient will improve strength/tolerance for activity to enable patient to perform ADL's. OT Seed And Fertilizer Specialist Goals Seed And Fertilizer Specialist Goals Time Frame: Oct 10, 2016 Eating (FIM): 6 (met 09/29/16) Eating (QC): 6 (6-MET) Groomin (met 09/29/16) Oral Hygiene (QC): 6 (6-MET) Bathing(FIM): 5 (met 09/29/16) Shower/Bathe Self (QC): 5 (6-Exceeded) Upper Body Dressing(FIM): 6 (met 09/29/16) Upper Body Dressing (QC): 6 (6-MET) Lower Body Dressing(FIM): 5 (not met) Lower Body Dressing (QC): 5 (MET) On/Off Footwear (QC): 5 (3-NOT MET) Toileting(FIM): 6 (met 09/29/16) Toileting Hygiene (QC): 6 (6-MET) Toilet/Commode Transfer(FIM): 6 (met 09/29/16) Toilet/Commode Transfer (QC): 6 (5-MET) Shower Transfer(FIM): 5 (met) Additional Goals: 1-Demonstrate ADL Tasks, 2-Verbalize Understanding, 3- ImproveStrength/Shamika 1=Demonstrate adherence to instructed precautions during ADL tasks. 2=Patient will verbalize/demonstrate understanding of assistive devices/ modifications for ADL. 3=Patient will improve strength/tolerance for activity to enable patient to perform ADL's. OT Education/Plan Problem List/Assessment Pt demonstrates decreased ADL functioning, strength, mobility, and activity tolerance. Pt to benefit from skilled OT intervention for ADL training, transfers, strengthening, and safety education to maximize level of function and allow safe return home. Discharge Recommendations Plan/Recommendations: Continue POC Treatment Plan/Plan of Care Patient would benefit from OT for education, treatment and training to promote independence in ADL's, mobility, safety and/or upper extremity function for ADL' s. Plan of Care: ADL Retraining, Functional Mobility, Group Exercise/Act as Ind, UE Funct Exercise/Act, UE Neuromus Re-Ed/Coord Treatment Duration: Oct 10, 2016 Frequency: At least 5-7 days/Wk (IRF) Estimated Hrs Per Day: 1.5 hours per day Agreement: Yes Rehab Potential: Fair Time/GCodes Start Time: 07:50 Stop Time: 08:50 Total Time Billed (hr/min): 60 Billed Treatment Time 1 visit, ADLx4(60minutes) SU GOMEZ OT Sep 29, 2016 11:21
--- NOTE | 2016-09-29 14:52 | Therapy Group Daily Note ---
Therapy Daily Group Note Patient Education Topic Other List Below (TRF safety and techniques) Other/Notes Pt. attended group PT OT session , pt. up ad bacilio ambulated to and from with 4WW. Pt introduced self and shared with group readily RE: her experiences with TRFs in home environment as well as safety doing so. Education topic encompassed TRF safety and techniques from bed ,supine, rolling side lying to sit, sit to stand as well as SPT bed to chair and floor TRFs.. pts all shared advice as well as experiences with fall prevention and TRFs at home. Pt. to room after group indep with luo at hand for needs Start Time: 13:00 Stop Time: 14:15 Total Billed Treatment Time: 75 Total Billed Treatment 1,GRP JULIANNE SNYDER FLOOR TRADER Sep 29, 2016 14:52
[2016-09-29 18:13] VITALS: BP 131/70
--- NOTE | 2016-09-29 19:02 | PM & R (SOAP) Progress Note ---
Subjective Time Seen by Provider: 18:55 Subjective/Events-last exam Patient was seen in her room this evening Pleased with her progress Patient Modified Independent for transfers States that she will have f/u therapy with a private PT who does home visits which will be ordered by patients PCP Objective Exam Last Set of Vital Signs Vital Signs Date Time Temp Pulse Resp B/P (MAP) Pulse Ox O2 Delivery O2 Flow Rate FiO2 09/29/16 12:11 98.9 09/29/16 09:00 Room Air 09/29/16 05:23 87 18 171/83 97 Capillary Refill : I&O Intake and Output 09/28/16 23:59 Intake Total 1800 ml Balance 1800 ml Intake Oral 1800 ml # Voids 14 # Bowel Movements 2 General: Alert, Oriented X3, Cooperative, No Acute Distress HEENT: Atraumatic, PERRLA, EOMI, Mucous Memb Moist/[place] Neck: Supple, No JVD Lungs: Clear to Auscultation Heart: Regular Rate Abdomen: Normal Bowel Sounds, Soft, No Tenderness Extremities: Other (Edema and tenderness much improved in legs) Skin: Other (as per above) Neuro: Other (Decreased sensation to light touch both feet Impaired strength rt LE due to pain and swelling rt calf OA changes both PIPS of hands) Psych/Mental Status: Mental Status NL Assessment/Plan Assessment 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 Hyponatremia-stable Plan Continue PT/OT/Pain Management Discharge tomorrow to home with her daughter with f/u with PCP and private PT See orders. BERE BEAN MD Sep 29, 2016 19:02
[2016-09-29] MEDS ORDERED: FENT1PAT9 TOP (19:10)
--- NOTE | 2016-09-29 20:29 | Progress Note (SOAP) ---
Objective Exam Vital Signs Date Time Temp Pulse Resp B/P (MAP) Pulse Ox O2 Delivery O2 Flow Rate FiO2 09/29/16 18:13 97.6 96 16 131/70 98 09/29/16 12:11 98.9 09/29/16 09:00 Room Air 09/29/16 05:23 98.9 87 18 171/83 97 Room Air I & O 09/29/16 07:00 Intake Total 1900 ml Balance 1900 ml Capillary Refill : Clinical Quality Measures DVT/VTE Risk/Contraindication: Risk Factor Score Per Nursin RFS Level Per Nursing on Admit: 4+=Very High WOODY CARBONE MD Sep 29, 2016 20:29
[2016-09-29] MEDS: POLYETHYLENE GLYCOL 17 GM (MIRALAX) PACK PO SCH (21:47)
[2016-09-30 05:59] VITALS: BP 160/77
[2016-09-30] MEDS: CATHETER FLUSH 10 ML SYR IV SCH (06:18)
[2016-09-30] MEDS: MULTIVIT W/MINERALS TAB (THERAGRAN M) PO SCH (06:18)
[2016-09-30] MEDS: CALCIUM CARB + VIT D 600 MG (CALCARB + D) TAB PO SCH (06:18)
[2016-09-30] MEDS: PANTOPRAZOLE 40 MG (PROTONIX) TAB PO SCH (06:18)
[2016-09-30] MEDS: TROSPIUM 20 MG (SANCTURA) TAB PO SCH (06:18)
[2016-09-30] MEDS: SUCRALFATE 1 GM (CARAFATE) TAB PO SCH (06:18)
[2016-09-30] MEDS: DOCUSATE SODIUM 100 MG (COLACE) CAP PO SCH (09:14)
[2016-09-30] MEDS: SENNA W/DOCUSATE (SENOKOT S) TABLET PO SCH (09:14)
[2016-09-30] MEDS: VITAMIN D3 1,000 UNITS (CHOLECALCIFEROL) TABLET PO SCH (09:14)
[2016-09-30] MEDS: DICLOFENAC 1% GEL 100 GM (VOLTAREN) TUBE TOP SCH (09:15)
--- NOTE | 2016-09-30 10:18 | Physical Therapy Progress Note ---
Therapy Progress Note Visited with patient about her complaints of right shoulder discomfort per Dr. Silva's request. Provided ptand applied a neoprene/elastic compression strap to try on her shoulder. Educated her on how it may help with the swelling she feels and the discomfort. Provided her with pictures and description of sleeves she could purchase upon discharge. Pt to wear the compression until she leaves today and decide if she feels it will be helpful and if she wants to try to purchase on. Pt voiced understanding of the how the compression works and how to obtain one of her own if she desires. [phone] visit FA 15 ORA REZA PT Sep 30, 2016 10:18
--- NOTE | 2016-09-30 11:02 | PM & R (SOAP) Progress Note ---
Subjective Time Seen by Provider: 07:35 Subjective/Events-last exam Patient was seen in her room this AM Patient Modified Independent for mobility has progressed well Patient indicates that DR Silva PCP has arranged for f/u with private Physical Therapist Relayed this info to Objective Exam Last Set of Vital Signs Vital Signs Date Time Temp Pulse Resp B/P (MAP) Pulse Ox O2 Delivery O2 Flow Rate FiO2 09/30/16 05:59 97.6 85 18 160/77 98 Room Air Capillary Refill : I&O Intake and Output 09/30/16 00:00 Intake Total 1550 ml Balance 1550 ml Intake Oral 1550 ml # Voids 14 General: Alert, Oriented X3, Cooperative, No Acute Distress HEENT: Atraumatic, PERRLA, EOMI, Mucous Memb Moist/[place] Neck: Supple, No JVD Lungs: Clear to Auscultation Heart: Regular Rate Abdomen: Normal Bowel Sounds, Soft, No Tenderness Extremities: Other (Edema and tenderness much improved in legs) Skin: Other (as per above) Neuro: Other (Decreased sensation to light touch both feet Impaired strength rt LE due to pain and swelling rt calf OA changes both PIPS of hands) Psych/Mental Status: Mental Status NL Assessment/Plan Assessment 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 Hyponatremia-stable Plan Discharge today to home with her daughter F/U with DR Silva PCP and HHCPT arranged by PCP Current meds reviewed See orders. BERE BEAN MD Sep 30, 2016 11:02
[2016-09-30 11:24] VITALS: BP 160/77
--- NOTE | 2016-09-30 11:43 | Therapy Team Discharge Summary ---
Therapy Discharge Summary Discharge Recommendations Date of Discharge Sep 30, 2016 at 10:45 Therapy D/C Recommendations: Home w/ Family Support Occupational Therapy Pt admitted to ARU following acute hospitalization for intractable right leg pain, hyponatremia, and anemia. On admission pt required mod assist for bathing and toilet transfer and minimal assistance for dressing. Skilled OT intervention focused on ADL training, transfers, strengthening, and safety education. Pt made good progress with therapy and by discharge is able to complete basic ADLs and transfers with modified independence except LE dressing as pt requires minimal assistance to don shoes. Pt met OT long-term goals except LE dressing. Pt discharged home this date with family support. D/C ARU OT at this time. PT Shipping Agent Goals Shipping Agent Goals PT Correction Goals Time Frame: Oct 10, 2016 Transfers (B,C,W/C) (FIM): 6 Roll Left to Right (QC): 6 Sit to Lying (QC): 6 Lying-Sitting on Side/Bed(QC): 6 Sit to Stand (QC): 6 Chair/Wzo-gs-Wogfp Xfer(QC): 6 Car Transfer (QC): 4 Gait (FIM): 6 Distance: 300' Walk 10 feet (QC): 6 Walk 10ft-Uneven Surface(QC): 6 Walk 50ft with 2 Turns (QC): 6 Walk 150 ft (QC): 6 Gait Level of Assist: 6 Gait Assistive Device: FWW Stairs (FIM): 2 # of Steps: 4 1 Step (curb) (QC): 4 4 Steps (QC): 4 Stairs Level Of Assist: 4 OT Shipping Agent Goals Correction Goals Time Frame: Oct 10, 2016 Eating (FIM): 6 (met 09/29/16) Eating (QC): 6 (6-MET) Oral Hygiene (QC): 6 (6-MET) Grooming(FIM): 6 (met 09/29/16) Bathing(FIM): 5 (met 09/29/16) Shower/Bathe Self (QC): 5 (6-Exceeded) Upper Body Dressing(FIM): 6 (met 09/29/16) Upper Body Dressing (QC): 6 (6-MET) Lower Body Dressing(FIM): 5 (not met) Lower Body Dressing (QC): 5 (MET) On/Off Footwear (QC): 5 (3-NOT MET) Toileting(FIM): 6 (met 09/29/16) Toileting Hygiene (QC): 6 (6-MET) Toilet/Commode Transfer(FIM): 6 (met 09/29/16) Toilet/Commode Transfer (QC): 6 (5-MET) Shower Transfer(FIM): 5 (met) Additional Goals: 1-Demonstrate ADL Tasks, 2-Verbalize Understanding, 3- ImproveStrength/Shamika 1=Demonstrate adherence to instructed precautions during ADL tasks. 2=Patient will verbalize/demonstrate understanding of assistive devices/ modifications for ADL. 3=Patient will improve strength/tolerance for activity to enable patient to perform ADL's. SU GOMEZ OT Sep 30, 2016 11:43
--- NOTE | 2016-09-30 15:15 | Therapy Team Discharge Summary ---
Therapy Discharge Summary Discharge Recommendations Date of Discharge Sep 30, 2016 at 10:45 Therapy D/C Recommendations: Home w/ Family Support Physical Therapy Patient came to rehab with intractable right leg pain, hyponatremia, anemia. Upon evaluation patient performed bed mobility with SBA except for supine to sit which is min assist. Sit to stand is CGA. Patient can ambulate 150' with a rolling walker with CGA (including 50' with at least 2 turns of 90 degrees and 10' over an uneven surface). Patient can go up and down 1 step using a rolling walker with CGA, cues for safety and foot placement. Patient has been performing bed mobility and transfer training, balance and endurance training, functional strengthening, stair training, gait training, and education. Patient has made good progress and has met all of their [facility] goals. Now, patient performs bed mobility and transfers with mod I, ambulates 250' with a rolling walker with mod I (including 50' with at least 2 turns of 90 degrees and 10' over an uneven surface), and can go up and down 4 steps using 2 handrails with SBA. Patient has been discharged from this facility and will be discharged from PT at this time. PT Intermediate Goals Film Cutter Goals PT Intermediate Goals Time Frame: Oct 10, 2016 Transfers (B,C,W/C) (FIM): 6 Roll Left to Right (QC): 6 Sit to Lying (QC): 6 Lying-Sitting on Side/Bed(QC): 6 Sit to Stand (QC): 6 Chair/Anf-tz-Tjjyk Xfer(QC): 6 Car Transfer (QC): 4 Gait (FIM): 6 Distance: 300' Walk 10 feet (QC): 6 Walk 10ft-Uneven Surface(QC): 6 Walk 50ft with 2 Turns (QC): 6 Walk 150 ft (QC): 6 Gait Level of Assist: 6 Gait Assistive Device: FWW Stairs (FIM): 2 # of Steps: 4 1 Step (curb) (QC): 4 4 Steps (QC): 4 Stairs Level Of Assist: 4 OT Intermediate Goals Film Cutter Goals Time Frame: Oct 10, 2016 Eating (FIM): 6 (met 09/29/16) Eating (QC): 6 (6-MET) Oral Hygiene (QC): 6 (6-MET) Grooming(FIM): 6 (met 09/29/16) Bathing(FIM): 5 (met 09/29/16) Shower/Bathe Self (QC): 5 (6-Exceeded) Upper Body Dressing(FIM): 6 (met 09/29/16) Upper Body Dressing (QC): 6 (6-MET) Lower Body Dressing(FIM): 5 (not met) Lower Body Dressing (QC): 5 (MET) On/Off Footwear (QC): 5 (3-NOT MET) Toileting(FIM): 6 (met 09/29/16) Toileting Hygiene (QC): 6 (6-MET) Toilet/Commode Transfer(FIM): 6 (met 09/29/16) Toilet/Commode Transfer (QC): 6 (5-MET) Shower Transfer(FIM): 5 (met) Additional Goals: 1-Demonstrate ADL Tasks, 2-Verbalize Understanding, 3- ImproveStrength/Shamika 1=Demonstrate adherence to instructed precautions during ADL tasks. 2=Patient will verbalize/demonstrate understanding of assistive devices/ modifications for ADL. 3=Patient will improve strength/tolerance for activity to enable patient to perform ADL's. GARETT CLEMENT PT Sep 30, 2016 15:14
== END 2016-09-30 10:45 | disposition home or self-care (01) | DRG 554 ==
PROVIDERS: ADMIT Physical Medicine & Rehabilitation; ATTEND Physical Medicine & Rehabilitation
DX: M19.011 Primary osteoarthritis, right shoulder (principal); M19.012 Primary osteoarthritis, left shoulder; M17.0 Bilateral primary osteoarthritis of knee; M19.041 Primary osteoarthritis, right hand; M19.042 Primary osteoarthritis, left hand; M47.812 Spondylosis without myelopathy or radiculopathy, cervical region; M81.0 Age-related osteoporosis without current pathological fracture; G62.9 Polyneuropathy, unspecified; E87.1 Hypo-osmolality and hyponatremia; D50.0 Iron deficiency anemia secondary to blood loss (chronic); E87.6 Hypokalemia; K25.9 Gastric ulcer, unspecified as acute or chronic, without hemorrhage or perforation
CPT/HCPCS: 36415; 80053; 82962; 85025; 86850; 86900; 86901; 86920

== ENCOUNTER → 2017-02-16 | Outpatient (CLI) | payer MEDICARE, OTHER ==
[~2017-02-16] VITALS: Ht 170.2 cm; Wt 66.3 kg
[~2017-02-16] MED LIST changes: +DENOSUMAB 60 MG/1 ML (PROLIA) SQ ONE; +FENT1PAT9 TOP; -NAPR500T3 PO; +NAPR500T4 PO
[2017-02-16 13:10] VITALS: BP 128/76
== END ==
LOC: SDC 12:59
PROVIDERS: ATTEND Nurse Practitioner Family
DX: M81.0 Age-related osteoporosis without current pathological fracture (principal)
CPT/HCPCS: 96372

== ENCOUNTER → 2017-03-16 | Outpatient (CLI) | payer MEDICARE, OTHER ==
[~2017-03-16] MED LIST changes: -DENOSUMAB 60 MG/1 ML (PROLIA) SQ ONE
[2017-03-16 13:35] LABS: HEMOGLOBIN 8.4 G/DL (11.5-16.0)
== END ==
LOC: LAB 12:50
PROVIDERS: ATTEND Family Medicine
DX: D64.9 Anemia, unspecified (principal)
CPT/HCPCS: 82728; 83540; 85014; 85018

== ENCOUNTER → 2017-03-16 | Outpatient (CLI) | payer MEDICARE, OTHER ==
[2017-03-16 13:26] LABS: BASOPHILS % (AUTO) 0 % (0-10); EOSINOPHILS % (AUTO) 0 % (0-10); HEMATOCRIT 26 % (35-52); HEMOGLOBIN 8.4 G/DL (11.5-16.0); LYMPHOCYTES # (AUTO) 0.5 X 10^3 (1.0-4.0); LYMPHOCYTES % (AUTO) 8 % (12-44); MEAN CORPUSCULAR HEMOGLOBIN 31 PG (25-34); MEAN CORPUSCULAR HGB CONC 32 G/DL (32-36); MEAN CORPUSCULAR VOLUME 97 FL (80-99); MEAN PLATELET VOLUME 8.7 FL (7.4-10.4); MONOCYTES # (AUTO) 0.2 X 10^3 (0.0-1.0); MONOCYTES % (AUTO) 3 % (0-12); NEUTROPHILS # (AUTO) 5.1 X 10^3 (1.8-7.8); NEUTROPHILS % (AUTO) 89 % (42-75); PLATELET COUNT 337 10^3/uL (130-400); RED BLOOD COUNT 2.68 10^6/uL (4.35-5.85); RED CELL DISTRIBUTION WIDTH 13.8 % (10.0-14.5); WHITE BLOOD COUNT 5.8 10^3/uL (4.3-11.0)
[2017-03-16 13:45] LABS: BAND NEUTROPHILS 0 %; BASOPHILS % (MANUAL) 0 %; EOSINOPHILS % (MANUAL) 0 %; LYMPHOCYTES % (MANUAL) 5 %; MONOCYTES % (MANUAL) 4 %; NEUTROPHILS % (MANUAL) 91 %; RBC MORPH NORMAL
[2017-03-16 13:49] LABS: ERYTHROCYTE SEDIMENTATION RATE 19 MM/HR (0-30)
[2017-03-16 13:53] LABS: BUN/CREATININE RATIO 23; CALCIUM 7.4 MG/DL (8.5-10.1); CARBON DIOXIDE 24 MMOL/L (21-32); CHLORIDE 98 MMOL/L (98-107); CREATININE SERUM 0.71 MG/DL (0.60-1.30); GFR ESTIMATED > 60; GLUCOSE 181 MG/DL (70-105); POTASSIUM 3.9 MMOL/L (3.6-5.0); SODIUM 133 MMOL/L (135-145)
== END ==
LOC: LAB 12:56
PROVIDERS: ATTEND Allergy & Immunology
DX: R68.89 Other general symptoms and signs (principal); Z79.899 Other long term (current) drug therapy
CPT/HCPCS: 36415; 80048; 85007; 85027; 85652; 86141

== ENCOUNTER → 2017-03-19 | Outpatient (CLI) | payer MEDICARE, OTHER ==
[~2017-03-19] VITALS: Ht 170.2 cm; Wt 66.3 kg
[2017-03-19] VITALS (7 sets, daily range): BP systolic 128–150; BP diastolic 63–87
[~2017-03-19] MED LIST changes: +FENT1PAT11 TD; +FUROSEMIDE 40 MG/4 ML INJ (LASIX) ONE; +MIRA25TA PO; +NS IV 500 ML 500 ML ONE; +PRD1T PO
[2017-03-19 13:34] LABS: HEMOGLOBIN 10.8 G/DL (11.5-16.0)
[2017-03-19 15:56] LABS: HEMOGLOBIN 10.2 G/DL (11.5-16.0)
== END ==
LOC: SDC 08:53
PROVIDERS: ATTEND Allergy & Immunology
DX: D64.9 Anemia, unspecified (principal); R53.83 Other fatigue
CPT/HCPCS: 36415; 36430; 85014; 85018; 86850; 86900; 86901; 86920

== ENCOUNTER → 2017-04-07 | Outpatient (CLI) | payer MEDICARE, OTHER ==
[~2017-04-07] MED LIST changes: -FUROSEMIDE 40 MG/4 ML INJ (LASIX) ONE; -NS IV 500 ML 500 ML ONE
[2017-04-07 13:42] LABS: BASOPHILS % (AUTO) 0 % (0-10); EOSINOPHILS % (AUTO) 0 % (0-10); HEMATOCRIT 28 % (35-52); HEMOGLOBIN 8.9 G/DL (11.5-16.0); LYMPHOCYTES # (AUTO) 0.8 X 10^3 (1.0-4.0); LYMPHOCYTES % (AUTO) 13 % (12-44); MEAN CORPUSCULAR HEMOGLOBIN 32 PG (25-34); MEAN CORPUSCULAR HGB CONC 32 G/DL (32-36); MEAN CORPUSCULAR VOLUME 98 FL (80-99); MEAN PLATELET VOLUME 8.4 FL (7.4-10.4); MONOCYTES # (AUTO) 0.6 X 10^3 (0.0-1.0); MONOCYTES % (AUTO) 9 % (0-12); NEUTROPHILS # (AUTO) 5.1 X 10^3 (1.8-7.8); NEUTROPHILS % (AUTO) 78 % (42-75); PLATELET COUNT 267 10^3/uL (130-400); RED BLOOD COUNT 2.81 10^6/uL (4.35-5.85); RED CELL DISTRIBUTION WIDTH 18.7 % (10.0-14.5); WHITE BLOOD COUNT 6.6 10^3/uL (4.3-11.0)
== END ==
LOC: LAB 13:18
PROVIDERS: ATTEND Allergy & Immunology
DX: D64.9 Anemia, unspecified (principal)
CPT/HCPCS: 36415; 82728; 83540; 85025

== ENCOUNTER → 2017-04-13 | Outpatient (CLI) | payer MEDICARE, OTHER ==
[2017-04-13] VITALS (8 sets, daily range): BP systolic 131–159; BP diastolic 69–82
[~2017-04-13] VITALS: Ht 170.2 cm; Wt 66.3 kg
[~2017-04-13] MED LIST changes: +FUROSEMIDE 40 MG/4 ML INJ (LASIX) IV ONE; +FUROSEMIDE 40 MG/4 ML INJ (LASIX) ONE; +NS IV 500 ML 500 ML ONE
[2017-04-13 13:24] LABS: HEMOGLOBIN 11.8 G/DL (11.5-16.0)
[2017-04-13 16:40] LABS: HEMOGLOBIN 11.8 G/DL (11.5-16.0)
== END ==
LOC: SDC 09:23
PROVIDERS: ATTEND Allergy & Immunology
DX: D64.9 Anemia, unspecified (principal); R53.83 Other fatigue
CPT/HCPCS: 36415; 36430; 85014; 85018; 86850; 86900; 86901; 86920

== ENCOUNTER → 2017-04-21 | Outpatient (CLI) | payer MEDICARE, OTHER ==
[~2017-04-21] MED LIST changes: -FUROSEMIDE 40 MG/4 ML INJ (LASIX) IV ONE; -FUROSEMIDE 40 MG/4 ML INJ (LASIX) ONE; -NS IV 500 ML 500 ML ONE
[2017-04-21 14:05] LABS: HEMOGLOBIN 12.5 G/DL (11.5-16.0); MEAN PLATELET VOLUME 9.3 FL (7.4-10.4); RED BLOOD COUNT 3.9 10^6/uL (4.35-5.85); RED CELL DISTRIBUTION WIDTH 18.1 % (10.0-14.5); WHITE BLOOD COUNT 7.6 10^3/uL (4.3-11.0)
== END ==
LOC: LAB 13:47
PROVIDERS: ATTEND Allergy & Immunology
DX: D64.9 Anemia, unspecified (principal)
CPT/HCPCS: 36415; 85027

== ENCOUNTER 2017-06-06 09:46 | Inpatient (IN) | payer MEDICARE, OTHER ==
[~2017-06-06] VITALS: Ht 170.2 cm; Wt 72.1 kg
[2017-06-06] VITALS (7 sets, daily range): BP systolic 108–125; BP diastolic 67–103
[~2017-06-06 09:46] MED LIST changes: +NAPR-915 PO; -NAPR500T4 PO
[2017-06-06 10:15] LABS: BASOPHILS # (AUTO) 0.1 10^3/uL (0.0-0.1); BASOPHILS % (AUTO) 1 % (0-10); EOSINOPHILS % (AUTO) 0 % (0-10); HEMATOCRIT 40 % (35-52); HEMOGLOBIN 13.7 G/DL (11.5-16.0); LYMPHOCYTES # (AUTO) 1.9 X 10^3 (1.0-4.0); LYMPHOCYTES % (AUTO) 21 % (12-44); MEAN CORPUSCULAR HEMOGLOBIN 34 PG (25-34); MEAN CORPUSCULAR HGB CONC 34 G/DL (32-36); MEAN CORPUSCULAR VOLUME 98 FL (80-99); MEAN PLATELET VOLUME 8.7 FL (7.4-10.4); MONOCYTES # (AUTO) 0.7 X 10^3 (0.0-1.0); MONOCYTES % (AUTO) 7 % (0-12); NEUTROPHILS # (AUTO) 6.4 X 10^3 (1.8-7.8); NEUTROPHILS % (AUTO) 71 % (42-75); PLATELET COUNT 348 10^3/uL (130-400); RED BLOOD COUNT 4.09 10^6/uL (4.35-5.85); RED CELL DISTRIBUTION WIDTH 14.6 % (10.0-14.5)
[2017-06-06] MEDS ORDERED: NS IV 1000 ML 1,000 ML IV ONE (10:20)
[2017-06-06] MEDS ORDERED: VERAPAMIL 5 MG/2 ML (CALAN) VIAL IV ONE ×3 (10:25→11:15)
[2017-06-06 10:29] LABS: MAGNESIUM 1.5 MG/DL (1.8-2.4)
[2017-06-06] MEDS ORDERED: VERAPAMIL 10 MG/4 ML (CALAN) VIAL IV ONE (10:30)
[2017-06-06 10:32] LABS: INR 0.8 (0.8-1.4); PROTHROMBIN TIME PATIENT 11.6 SEC (12.2-14.7)
[2017-06-06 10:35] LABS: ALANINE AMINOTRANSFERASE 18 U/L (0-55); ALKALINE PHOSPHATASE 93 U/L (40-136); BILIRUBIN,TOTAL 0.6 MG/DL (0.1-1.0); BUN/CREATININE RATIO 15; CALCIUM 8.7 MG/DL (8.5-10.1); CARBON DIOXIDE 25 MMOL/L (21-32); CHLORIDE 90 MMOL/L (98-107); CREATININE SERUM 0.67 MG/DL (0.60-1.30); GFR ESTIMATED > 60; GLUCOSE 124 MG/DL (70-105); POTASSIUM 4.5 MMOL/L (3.6-5.0); SODIUM 128 MMOL/L (135-145); TOTAL PROTEIN 6.2 GM/DL (6.4-8.2)
--- NOTE | 2017-06-06 10:39 | Diagnostic Imaging Report ---
INDICATION: Atrial fibrillation. COMPARISON: Comparison is made with the chest radiograph from abdominal series from December 09, 2015. FINDINGS: There is an enlargement of the cardiac silhouette with central pulmonary vascular congestion. There is a left-sided pleural effusion. There is no pneumothorax. No focal alveolar consolidation is demonstrated. Extensive operative changes are present involving the thoracic spine. Advanced degenerative features present in both shoulders. IMPRESSION: Large cardiac silhouette with central pulmonary vascular congestion and a probable left-sided effusion. Dictated by: Dictated on workstation # [id number]
[2017-06-06 10:42] LABS: MYOGLOBIN SERUM 76.1 NG/ML (10.0-92.0)
--- NOTE | 2017-06-06 11:18 | Consultation-Cardiology ---
HPI-Cardiology Cardiology Consultation Date of Consultation 06/06/17 Date of Admission Time Seen by Provider: 11:12 Indication: atrial fibrillation HPI 81 years old lady with history of arthritis, GI bleed, multiple arthritic surgery, history of multiple spontaneous bleed in her joint. History of peptic ulcer disease, GI bleed and history of DVT. Started to have generalized weakness and fatigue for the past few days, this morning came into the emergency room thinking that she might be anemic. She was noted to be in atrial fibrillation with rapid ventricular response. She denied any chest pain , no shortness of breath, no palpitation, no syncope or near syncopal episodes. No claudications. She has unsteady gait and increased risk of falling. Home Medications & Allergies Allergies: Coded Allergies: Penicillins (Verified Allergy, Unknown, 08/11/12) Sulfa (Sulfonamide Antibiotics) (Verified Allergy, Unknown, 09/17/16) Home Medication List Reviewed: Yes [facility]-Umdmaz-Mntinz Hx Patient Social History Alcohol Use: Occasionally Uses Recreational Drug Use: No Smoking Status: Former Smoker Former smoker/When Quit: Aug 11, 1949 Type Used: Cigarettes 2nd Hand Smoke Exposure: No Recent Foreign Travel: No Recent Infectious Disease Expo: No Recent Hopitalizations: No Immunizations Up To Date Tetanus Booster (TDap): Unknown Date of Pneumonia Vaccine: Mar 02, 2014 Date of Influenza Vaccine: Nov 28, 2016 Past Medical History Past medical history as discussed below Family Medical History Significant Family History: Heart Disease, Hypertension Family Medical Hx Noncontributory to her current condition Family History: Constitutional: see HPI, dizziness, malaise, weakness EENTM: see HPI, no symptoms reported Respiratory: see HPI, No cough, No dyspnea on exertion, No hemoptysis, No orthopnea, No phlegm, No short of breath, No stridor, No wheezing, No other Cardiovascular: see HPI, No chest pain, edema, No Hx of Intervention, No palpitations, No syncope, No vascular heart diseas, No other Gastrointestinal: see HPI, heartburn, nausea Genitourinary: no symptoms reported, see HPI Musculoskeletal: see HPI, gout, joint pain, muscle pain Skin: see HPI Psychiatric/Neurological: No Symptoms Reported, See HPI Reviewed Test Results Reviewed Test Results Lab Laboratory Tests Test 06/06/17 10:05 Range/Units White Blood Count 9.0 4.3-11.0 10^3/uL Red Blood Count 4.09 L 4.35-5.85 10^6/uL Hemoglobin 13.7 11.5-16.0 G/DL Hematocrit 40 35-52 % Mean Corpuscular Volume 98 80-99 FL Mean Corpuscular Hemoglobin 34 25-34 PG Mean Corpuscular Hemoglobin Concent 34 32-36 G/DL Red Cell Distribution Width 14.6 H 10.0-14.5 % Platelet Count 348 130-400 10^3/uL Mean Platelet Volume 8.7 7.4-10.4 FL Neutrophils (%) (Auto) 71 42-75 % Lymphocytes (%) (Auto) 21 12-44 % Monocytes (%) (Auto) 7 0-12 % Eosinophils (%) (Auto) 0 0-10 % Basophils (%) (Auto) 1 0-10 % Neutrophils # (Auto) 6.4 1.8-7.8 X 10^3 Lymphocytes # (Auto) 1.9 1.0-4.0 X 10^3 Monocytes # (Auto) 0.7 0.0-1.0 X 10^3 Eosinophils # (Auto) 0.0 0.0-0.3 10^3/uL Basophils # (Auto) 0.1 0.0-0.1 10^3/uL Prothrombin Time 11.6 L 12.2-14.7 SEC INR Comment 0.8 0.8-1.4 Activated Partial Thromboplast Time 28 24-35 SEC Sodium Level 128 L 135-145 MMOL/L Potassium Level 4.5 3.6-5.0 MMOL/L Chloride Level 90 L 98-107 MMOL/L Carbon Dioxide Level 25 21-32 MMOL/L Anion Gap 13 5-14 MMOL/L Blood Urea Nitrogen 10 7-18 MG/DL Creatinine 0.67 0.60-1.30 MG/DL Estimat Glomerular Filtration Rate > 60 BUN/Creatinine Ratio 15 Glucose Level 124 H 70-105 MG/DL Calcium Level 8.7 8.5-10.1 MG/DL Magnesium Level 1.5 L 1.8-2.4 MG/DL Total Bilirubin 0.6 0.1-1.0 MG/DL Aspartate Amino Transf (AST/SGOT) 28 5-34 U/L Alanine Aminotransferase (ALT/SGPT) 18 0-55 U/L Alkaline Phosphatase 93 40-136 U/L Myoglobin 76.1 10.0-92.0 NG/ML Troponin I < 0.30 <0.30 NG/ML Total Protein 6.2 L 6.4-8.2 GM/DL Albumin 3.0 L 3.2-4.5 GM/DL TSH [place] Testing 2.91 0.35-4.94 UIU/ML Physical Exam Vital Signs Vital Signs - First Documented 06/06/17 09:46 Temp 98.1 Pulse 148 Resp 13 B/P (MAP) 111/90 (97) Pulse Ox 98 O2 Delivery Room Air Capillary Refill : Less Than 3 Seconds General Appearance: No Apparent Distress, WD/WN Eyes: Bilateral Eye Normal Inspection, Bilateral Eye PERRL, Bilateral Eye EOMI HEENT: PERRL/EOMI, TMs Normal, Normal ENT Inspection, Pharynx Normal Neck: Full Range of Motion, Normal Inspection, Non Tender, Supple, Carotid Bruit Respiratory: Chest Non Tender, Lungs Clear, Normal Breath Sounds, No Accessory Muscle Use, No Respiratory Distress Cardiovascular: No Edema, No Gallop, No JVD, No Murmur, Normal Peripheral Pulses, Irregularly Irregular, Tachycardia Gastrointestinal: Normal Bowel Sounds, No Organomegaly, No Pulsatile Mass, Non Tender, Soft Back: Normal Inspection, No CVA Tenderness, No Vertebral Tenderness Extremity: Normal Capillary Refill, Normal Inspection, No Pedal Edema, Other ( arthritic changes) Neurologic/Psychiatric: Alert, Oriented x3, No Motor/Sensory Deficits, Normal Mood/Affect Skin: Normal Color, Warm/Dry Lymphatic: No Adenopathy A/P-Cardiology Admission Diagnosis Atrial fibrillation Tachycardia Hyponatremia Hypomagnesemia Assessment/Plan Atrial fibrillation with rapid ventricular response, borderline hypotension, probably underlying hypovolemia. Patient is receiving IV fluid, I'll start oral Cardizem in addition to one dose of IV verapamil and monitor her heart rate and blood pressure response. We'll evaluate 2-D echocardiogram. [id number] score of 3, yearly risk of stroke without oral anticoagulation is 3.2 percent. We had a long discussion about the risk of bleeding versus the risk of stroke, for the short-term I will use Lovenox and monitor her tolerance and response. Doubt that the patient will tolerate oral anticoagulation as an outpatient. Generalized weakness and loss of energy, hypotension, receiving IV fluid, continue to monitor Gastroesophageal reflux disease, history of peptic ulcer disease, restart home medications and monitor closely Hyponatremia, probably secondary to diuretics. Continue to monitor Hypomagnesemia, replace and monitor Arthritis, significant history of intra-articular bleeding, will be intolerant to oral anticoagulation Chronic pain, receiving multiple pain medications History of DVT in the past, not on oral anticoagulation MARGAUX ROUSE MD Jun 06, 2017 11:18
[2017-06-06] MEDS ORDERED: ENOXAPARIN 100 MG/1 ML (LOVENOX) SYR SC SCH (11:30)
[2017-06-06] MEDS ORDERED: DILTIAZEM 30 MG (CARDIZEM) TAB PO ONE (11:30)
--- NOTE | 2017-06-06 11:44 | History & Physical-Hospitalist ---
History of Present Illness HPI/Chief Complaint Chief complaint: Palpitations with new onset atrial fibrillation with rapid ventricular response History of present illness: This is an 81-year-old white female clinic patient of Dr. Silva with the past medical history of severe rheumatoid arthritis with frequent bleeding into her joints who also sees Dr. Harkins and Dr. Ambrocio in [place] for rheumatology needs who presents to the ER after not feeling well for the past 2 days. She reports that she was feeling under the weather yesterday did not really get out of bed that her daughter helped her manage everything at home where she lives in an apartment behind her daughter's house who then worsened to the point that she felt like she was going to faint today. She felt her heart beating fast and felt very lethargic and weak so she requested we brought to the ER and patient was found to have atrophic fibrillation with rapid ventricular response. She's not had any significant heart problems in the past and overall her main medical issues the rheumatoid arthritis and progressive debility. She reports that she overall is able to function fairly well but she does take 2 fentanyl patches on at the same time interchanges those every 3 days and takes scheduled oxycodone. Dr. Jenkins has been consulted and she will be placed on cardiac stepdown for rate control of the new onset A. fib. Source: patient, RN/MD Exam Limitations: no limitations Date Seen 06/06/17 Time Seen by Provider: 11:30 Attending Physician PCP Araceli Silva MD Referring Physician Date of Admission Home Medications & Allergies Home Medications Reviewed patient Home Medication Reconciliation performed by pharmacy medication reconciliations instrument and electrical technician and/or nursing. Patients Allergies have been reviewed. Allergies Allergies Coded Allergies Penicillins (Verified Allergy, Unknown, 08/11/12) Sulfa (Sulfonamide Antibiotics) (Verified Allergy, Unknown, 09/17/16) Past Oqgadvm-Ssjtgo-Jcbogt Hx Past Med/Social Hx: Reviewed Nursing Past Med/Soc Hx, Reviewed and Corrections made Patient Social History Marrital Status: Employed/Student: retired ([employer], [employer]) Alcohol Use: Occasionally Uses Alcohol Beverage of Choice: Wine, Vodka Recreational Drug Use: No Smoking Status: Former Smoker Former Smoker, Quit: Dec 05, 1961 Type Used: Cigarettes 2nd Hand Smoke Exposure: No Recent Foreign Travel: No Contact w/other who traveled: No Recent Hopitalizations: No Recent Infectious Disease Expo: No Immunizations Up To Date Tetanus Booster (TDap): Unknown Pediatric: Yes Date of Pneumonia Vaccine: Mar 02, 2014 Date of Influenza Vaccine: Nov 28, 2016 Seasonal Allergies Seasonal Allergies: No Past Medical History Surgeries: Appendectomy, Breast, Eye Surgery, Joint Replacement, Orthopedic Currently Using CPAP: No Currently Using BIPAP: No Cardiac: High Cholesterol Neurological: Neuropathy, Spinal Cord Injury Reproductive: No HIV/AIDS: No Female Reproductive Disorders: Denies Menopausal Genitourinary: Bladder Infection Gastrointestinal: Gastroesophageal Reflux, Gastrointestinal Bleed, Obstructive Bowel, Ulcer, Irritable Bowel Musculoskeletal: Degenerate Disk Disease, Arthritis, Fibromyalgia, Rheumatoid Arthritis, Chronic Back Pain, Fractures HEENT: Cataract Loss of Vision: Denies Hearing Impairment: Hard of Hearing History of Blood Disorders: Yes (hx of anemia) Adverse Reaction to Blood Adams: No Family History Reviewed and Corrections made Heart Disease, Hypertension Review of Systems Constitutional: see HPI, dizziness, malaise, weakness EENTM: no symptoms reported Respiratory: short of breath Cardiovascular: palpitations Gastrointestinal: nausea Genitourinary: no symptoms reported Musculoskeletal: no symptoms reported Skin: no symptoms reported Psychiatric/Neurological: No Symptoms Reported All Other Systems Reviewed Negative Unless Noted: Yes Physical Exam Physical Exam Vital Signs Vital Signs - First Documented 06/06/17 09:46 Temp 98.1 Pulse 148 Resp 13 B/P (MAP) 111/90 (97) Pulse Ox 98 O2 Delivery Room Air Capillary Refill : Less Than 3 Seconds General Appearance: No Apparent Distress, WD/WN, Chronically ill Eyes: Bilateral Eye Normal Inspection, Bilateral Eye PERRL HEENT: PERRL/EOMI, Normal ENT Inspection, Pharynx Normal Neck: Full Range of Motion, Normal Inspection, Non Tender, Supple, Carotid Bruit Respiratory: Chest Non Tender, Lungs Clear, Normal Breath Sounds, No Accessory Muscle Use, No Respiratory Distress Cardiovascular: No Edema, No Gallop, No JVD, No Murmur, Normal Peripheral Pulses, Irregularly Irregular, Tachycardia Gastrointestinal: Normal Bowel Sounds, No Organomegaly, No Pulsatile Mass, Non Tender, Soft Back: Normal Inspection, No CVA Tenderness, No Vertebral Tenderness Extremity: Normal Capillary Refill, Normal Inspection (Chronic arthritis changes and patient wearing walking boots), Normal Range of Motion, Non Tender, No Calf Tenderness, No Pedal Edema Neurologic/Psychiatric: Alert, Oriented x3, No Motor/Sensory Deficits, Normal Mood/Affect Skin: Normal Color, Warm/Dry Lymphatic: No Adenopathy Results Results/Procedures Labs Laboratory Tests 06/06/17 10:05 Patient resulted labs reviewed. Assessment/Plan Admission Diagnosis Assessment: Atrial fibrillation with rapid ventricular response requiring cardiac stepdown unit admission with cardiology consultation and antiarrhythmic infusions Severe and debilitating rheumatoid arthritis on chronic narcotics along with rheumatology care History of UTIs History of severe anemia Admission Status: Inpatient Order (span 2 midnights) Reason for Inpatient Admission: 3 days expected for rate control of atrial fibrillation with rapid ventricular response Assessment and Plan Plan: I appreciate cardiology consultation Rate control Stroke prophylaxis with anticoagulation of Lovenox and monitor closely since she has had bleeding in the past into her joints Diagnosis/Problems Diagnosis/Problems (1) Atrial fibrillation, new onset Status: Acute (2) Atrial fibrillation with RVR Status: Acute (3) Hyponatremia Status: Acute (4) Rheumatoid arthritis Status: Acute Qualifiers: Rheumatoid arthritis location: unspecified site Rheumatoid factor presence : unspecified presence Qualified Codes: M06.9 - Rheumatoid arthritis, unspecified EDISON ARMANDO DO Jun 06, 2017 11:44
[2017-06-06] MEDS ORDERED: ENOXAPARIN 80 MG/0.8 ML (LOVENOX) SYR SC ONE (11:45)
--- NOTE | 2017-06-06 11:48 | ED General ---
General Chief Complaint: Cardiac/General Problems Stated Complaint: WEAKNESS Nursing Triage Note: TO ROOM 06 VIA WC. PT WITH INCREASED WEAKNESS OVER THE LAST FEW DAYS. STATES THIS AM SHE HAS HAD TROUBLE WALKING DUE TO WEAKNESS. PT HAS A SOFT COLLAR ON DUE TO CHRONIC NECK PAIN AND A BOOT ON LEFT FOOT DUE CHRONIC OPEN WOUND. Nursing Sepsis Screen: No Definite Risk Source of Information: Patient Exam Limitations: No Limitations History of Present Illness Date Seen by Provider: Jun 06, 2017 Time Seen by Provider: 09:48 Initial Comments This 81-year-old woman presents to the emergency room with complaints of a couple days of increasing weakness, nausea, lightheadedness, and palpitations. She has severe rheumatoid arthritis and has internal bleeding periodically, especially around her shoulder joints. She has had anemia from this in the past and believes she is anemic again. She also has increased swelling that fluctuates locations. She is treated by Dr. Ambrocio for her rheumatoid arthritis and takes prednisone daily. Her primary care provider is Dr. Silva. During initial assessment she is noted to be tachycardic with an irregular rhythm in the 140s to 160s on the monitor. She has no history of atrial fibrillation or other cardiac problems. Patient notes that she also takes diuretics and potassium. Allergies and Home Medications Allergies Coded Allergies: Penicillins (Verified Allergy, Unknown, 08/11/12) Sulfa (Sulfonamide Antibiotics) (Verified Allergy, Unknown, 09/17/16) Home Medications Calcium/Vitamin D 600 Mg Tab, 600 MG PO BID, (Reported) Cholecalciferol 1,000 Unit Tab, 1,000 UNIT PO BID, (Reported) Cyanocobalamin 1,000 Mcg/Ml Vial, 1,000 MCG IJ ONCE MONTHLY, (Reported) Denosumab 60 Mg/1 Ml Disp.syrin, SQ EVERY 6 MONTHS, (Reported) NEXT INJECTION DUE IN JANUARY Docusate Sodium 100 Mg Capsule, 100 MG PO BID, (Reported) Fentanyl 1 Each Patch.td72, 125 MCG TD Q72H, (Reported) Furosemide 20 Mg Tablet, 20 MG PO DAILY PRN for SWELLING, (Reported) Mirabegron 25 Mg Tab.er.24h, 25 MG PO DAILY, (Reported) Oxycodone HCl 10 Mg Tablet, 10 MG PO Q6H PRN for BREAKTHROUGH PAIN, (Reported) Pantoprazole Sodium 40 Mg Tablet.dr, 40 MG PO BID@0700,2100 Prescribed by: WOODY SILVA on 09/19/16 09 Polyethylene Glycol 3350 17 Gm Powd.pack, 17 GM PO HS, (Reported) MIXES WITH PRUNE JUICE Potassium Chloride 10 Meq Capsule.er, 10 MEQ PO DAILY PRN for WHEN TAKING FUROSEMIDE, (Reported) Solifenacin Succinate 5 Mg Tablet, 5 MG PO HS, (Reported) Sucralfate 1 Gm Tablet, 1 GM PO ACHS Prescribed by: WOODY SILVA on 09/19/16 09 Patient Home Medication List Home Medication List Reviewed: Yes Review of Systems Constitutional: see HPI EENTM: no symptoms reported Respiratory: no symptoms reported Cardiovascular: see HPI Gastrointestinal: see HPI Genitourinary: no symptoms reported : No Musculoskeletal: no symptoms reported Skin: other (ecchymosis around the shoulders and upper chest) Psychiatric/Neurological: No Symptoms Reported Hematologic/Lymphatic: See HPI Immunological/Allergic: see HPI Past Kajwcji-Hdohei-Apfleu Hx Patient Social History Alcohol Use: Occasionally Uses Alcohol Beverage of Choice: Wine, Vodka Recreational Drug Use: No Smoking Status: Former Smoker Type Used: Cigarettes Former Smoker, Quit: Dec 05, 1961 2nd Hand Smoke Exposure: No Recent Foreign Travel: No Contact w/Someone Who Travel: No Recent Infectious Disease Expo: No Recent Hopitalizations: No Immunizations Up To Date Tetanus Booster (TDap): Unknown PED Vaccines UTD: Yes Date of Pneumonia Vaccine: Mar 02, 2014 Date of Influenza Vaccine: Nov 28, 2016 Seasonal Allergies Seasonal Allergies: No Past Medical History Surgeries: Yes (6 back and 2 total knees, 4 alt. 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 HIV/AIDS: No Genitourinary: No Bladder Infection Gastrointestinal: Yes (irritable bowel syndrome) Gastroesophageal Reflux, Gastrointestinal Bleed, Obstructive Bowel, Ulcer, Irritable Bowel Musculoskeletal: Yes (many back and knee surgeries, osteo arthritis, SCIATICA) Degenerate Disk Disease, Arthritis, Fibromyalgia, Rheumatoid Arthritis, Chronic Back Pain, Fractures Endocrine: No HEENT: Yes Cataract Loss of Vision: Denies Hearing Impairment: Hard of Hearing Cancer: No Psychosocial: No Integumentary: No Blood Disorders: Yes (hx of anemia) Adverse Reaction/Blood Tranf: No Family Medical History Heart Disease, Hypertension Physical Exam Vital Signs Vital Signs - First Documented 06/06/17 09:46 Temp 98.1 Pulse 148 Resp 13 B/P (MAP) 111/90 (97) Pulse Ox 98 O2 Delivery Room Air Capillary Refill : Less Than 3 Seconds General Appearance: WD/WN, Mild Distress, Thin HEENT: PERRL/EOMI, Normal ENT Inspection, Pharynx Normal Neck: Normal Inspection Respiratory: Lungs Clear, Normal Breath Sounds, No Accessory Muscle Use, No Respiratory Distress Cardiovascular: No Murmur, Irregularly Irregular, Tachycardia, Other (lower extremity edema, upper extremity edema, left greater than right) Gastrointestinal: Normal Bowel Sounds, Non Tender, Soft Extremity: Swelling (diffuse extremity edema, left greater than right), Other ( pain and disfigurement from severe rheumatoid arthritis) Neurologic/Psychiatric: Alert, Oriented x3, No Motor/Sensory Deficits, Normal Mood/Affect, cigarette paper tester II-XII Norm as Tested Skin: Normal Color, Warm/Dry, Ecchymosis (around the shoulder girdle and upper chest) Progress/Results/Core Measures Suspected Sepsis Recent Fever Within 48 Hours: No Infection Criteria Present: None New/Unexplained Altered Menta: No Sepsis Screen: No Definite Risk Sepsis Diagnosis: SIRS Temperature:98.1 Pulse: 148 Respiratory Rate: 13 Laboratory Tests 06/06/17 10:05: White Blood Count 9.0 Blood Pressure 111 /90 Mean: 97 Laboratory Tests 06/06/17 10:05: Creatinine 0.67, INR Comment 0.8, Platelet Count 348, Total Bilirubin 0.6 Results/Orders Lab Results Laboratory Tests Test 06/06/17 10:05 06/06/17 11:51 Range/Units White Blood Count 9.0 4.3-11.0 10^3/uL Red Blood Count 4.09 L 4.35-5.85 10^6/uL Hemoglobin 13.7 11.5-16.0 G/DL Hematocrit 40 35-52 % Mean Corpuscular Volume 98 80-99 FL Mean Corpuscular Hemoglobin 34 25-34 PG Mean Corpuscular Hemoglobin Concent 34 32-36 G/DL Red Cell Distribution Width 14.6 H 10.0-14.5 % Platelet Count 348 130-400 10^3/uL Mean Platelet Volume 8.7 7.4-10.4 FL Neutrophils (%) (Auto) 71 42-75 % Lymphocytes (%) (Auto) 21 12-44 % Monocytes (%) (Auto) 7 0-12 % Eosinophils (%) (Auto) 0 0-10 % Basophils (%) (Auto) 1 0-10 % Neutrophils # (Auto) 6.4 1.8-7.8 X 10^3 Lymphocytes # (Auto) 1.9 1.0-4.0 X 10^3 Monocytes # (Auto) 0.7 0.0-1.0 X 10^3 Eosinophils # (Auto) 0.0 0.0-0.3 10^3/uL Basophils # (Auto) 0.1 0.0-0.1 10^3/uL Prothrombin Time 11.6 L 12.2-14.7 SEC INR Comment 0.8 0.8-1.4 Activated Partial Thromboplast Time 28 24-35 SEC Sodium Level 128 L 135-145 MMOL/L Potassium Level 4.5 3.6-5.0 MMOL/L Chloride Level 90 L 98-107 MMOL/L Carbon Dioxide Level 25 21-32 MMOL/L Anion Gap 13 5-14 MMOL/L Blood Urea Nitrogen 10 7-18 MG/DL Creatinine 0.67 0.60-1.30 MG/DL Estimat Glomerular Filtration Rate > 60 BUN/Creatinine Ratio 15 Glucose Level 124 H 70-105 MG/DL Calcium Level 8.7 8.5-10.1 MG/DL Magnesium Level 1.5 L 1.8-2.4 MG/DL Total Bilirubin 0.6 0.1-1.0 MG/DL Aspartate Amino Transf (AST/SGOT) 28 5-34 U/L Alanine Aminotransferase (ALT/SGPT) 18 0-55 U/L Alkaline Phosphatase 93 40-136 U/L Myoglobin 76.1 10.0-92.0 NG/ML Troponin I < 0.30 <0.30 NG/ML Total Protein 6.2 L 6.4-8.2 GM/DL Albumin 3.0 L 3.2-4.5 GM/DL TSH [place] Testing 2.91 0.35-4.94 UIU/ML My Orders Orders - KIKO FLORES MD Cbc With Automated Diff (06/06/17 09:48) Comprehensive Metabolic Panel (06/06/17 09:48) Ua Culture If Indicated (06/06/17 09:48) Saline Lock/Iv-Start (06/06/17 09:48) Magnesium (06/06/17 10:12) Chest 1 View, Ap/Pa Only (06/06/17 10:12) Ekg Tracing (06/06/17 10:12) Cardiac Profile 1 (06/06/17 10:12) Myoglobin Serum (06/06/17 10:12) Protime With Inr (06/06/17 10:12) Partial Thromboplastin Time (06/06/17 10:12) O2 (06/06/17 10:12) Monitor-Rhythm Ecg Trace Only (06/06/17 10:12) Lipid Panel (06/07/17 06:00) Thyroid Analyzer (06/06/17 10:12) Ns Iv 1000 Ml (Sodium Chloride 0.9%) (06/06/17 10:20) Verapamil Injection (Calan Injection) (06/06/17 10:30) Verapamil Injection (Calan Injection) (06/06/17 10:30) Verapamil Injection (Calan Injection) (06/06/17 10:25) Verapamil Injection (Calan Injection) (06/06/17 11:15) Diltiazem Tablet (Cardizem Tablet) (06/06/17 11:30) Enoxaparin Injection (Lovenox Injection) (06/06/17 11:45) Medications Given in ED Current Medications Medications Dose Ordered Sig/Brittany Route Start Time Stop Time Status Last Admin Dose Admin Diltiazem HCl 30 mg ONCE ONCE PO 06/06/17 11:30 06/06/17 11:31 DC 06/06/17 11:49 30 MG Sodium Chloride 1,000 ml @ 0 mls/hr Q0M ONCE IV 06/06/17 10:20 06/06/17 10:22 DC 06/06/17 10:35 0 MLS/HR Verapamil HCl 5 mg ONCE ONCE IV 06/06/17 11:15 06/06/17 11:16 DC 06/06/17 11:09 5 MG Vital Signs/I&O 06/06/17 09:46 Temp 98.1 Pulse 148 Resp 13 B/P (MAP) 111/90 (97) Pulse Ox 98 O2 Delivery Room Air Capillary Refill : Less Than 3 Seconds Blood Pressure Mean: 97 Progress Note : Progress Note Patient was found to be in atrial fibrillation with RVR. Blood pressures were marginal in the 90s. Therefore a liter of IV fluids was administered before giving verapamil. Verapamil 5 mg was administered with reasonably good result in reducing heart rate. Dr. Jenkins presented to the emergency to assess the patient. He also recommended giving Cardizem 30 mg by mouth and Lovenox. Dr. Jenkins and I had a lengthy discussion with the patient about the risks and benefits of anticoagulation in the context of her joint bleeding and atrial fibrillation. We will trial Lovenox for the time being while in the hospital. UA was pending at the time of admission. I also discussed CODE STATUS with the patient. She wishes to remain full code at this time but does not want prolonged life support. ECG Initial ECG Impression Date: Jun 06, 2017 Initial ECG Impression Time: 10:06 Initial ECG Rate: 166 Initial ECG Rhythm: A Fib/Flutter Initial ECG Impression: Atrial Fibrillation w/RVR Comment Atrial fibrillation with RVR. No acute ST changes to suggest ischemia. Diagnostic Imaging Diagonstic Imaging: Xray Plain Films/CT/US/NM/MRI: chest Comments Chest x-ray viewed by me and report reviewed. See report below: NAME: CANDACE ANGUIANO [facility] REC#: [id number] PT STATUS: REG ER : 1935 PHYSICIAN: KIKO FLORES MD ADMIT DATE: 06/06/17/ER Draft Date of Exam:06/06/17 CHEST 1 VIEW, AP/PA ONLY INDICATION: Atrial fibrillation. COMPARISON: Comparison is made with the chest radiograph from abdominal series from December 09, 2015. FINDINGS: There is an enlargement of the cardiac silhouette with central pulmonary vascular congestion. There is a left-sided pleural effusion. There is no pneumothorax. No focal alveolar consolidation is demonstrated. Extensive operative changes are present involving the thoracic spine. Advanced degenerative features present in both shoulders. IMPRESSION: Large cardiac silhouette with central pulmonary vascular congestion and a probable left-sided effusion. Dictated on workstation # [id number] Dict: 06/06/17 1034 Trans: 06/06/17 1039 [facility] [id number] Interpreted by: MARCIA BERNARD MD Departure Communication (Admissions) Time/Spoke to Admitting Phy: 11:10 Dr. Baugh Time/Spoke to Consulting Phy: 11:00 Dr. Jenkins Impression Primary Impression: Atrial fibrillation, new onset Additional Impressions: Atrial fibrillation with RVR Generalized weakness Hyponatremia Hypokalemia Rheumatoid arthritis Qualified Codes: M06.9 - Rheumatoid arthritis, unspecified Disposition: ADMITTED INPATIENT Condition: Improved Admissions Decision to Admit Reason: Admit from ER (General) Decision to Admit/Date: Jun 06, 2017 Time/Decision to Admit Time: 10:00 Departure-Patient Inst. Decision time for Depature: 10:00 Referrals: WOODY SILVA MD (PCP/Family) Primary Care Physician Copy Copies To 1: WOODY SILVA MD, JOSHUA T MD Jun 06, 2017 11:48
[2017-06-06] MEDS: ENOXAPARIN 80 MG/0.8 ML (LOVENOX) SYR SC SCH (11:50)
[2017-06-06 11:57] LABS: BILIRUBIN,URINE NEGATIVE (NEGATIVE); CLARITY,URINE CLEAR; COLOR,URINE YELLOW; GLUCOSE, URINE (UA) NEGATIVE (NEGATIVE); KETONES,URINE NEGATIVE (NEGATIVE); LEUKOCYTE ESTERASE ,URINE 1+ (NEGATIVE); NITRITE,URINE NEGATIVE (NEGATIVE); PH,URINE 7 (5-9); PROTEIN,URINE NEGATIVE (NEGATIVE); UROBILINOGEN,URINE NORMAL (NORMAL)
[2017-06-06 12:09] LABS: BACTERIA,URINE FEW /HPF; HYALINE CASTS, URINE 0-2 /LPF; SQUAMOUS EPITHELIAL CELL,UR 0-2 /HPF; WBC,URINE 0-2 /HPF
[2017-06-06] MEDS ORDERED: CATHETER FLUSH 10 ML SYR IV PRN (12:15)
--- OUTSIDE RECORDS SUMMARY | 2017-06-06 12:15 | XMS REPORT | CCD ---
Author Author [facility]aceli Silva Organization [facility] Address [address] [place] [address] Phone Care Team Providers [employer] Executive Security Name Role Phone PP Unavailable CCM Unavailable Summary Purpose Interface Exchange Insurance Providers Payer name Policy type / Coverage type Covered republican ID Effective Begin Date Effective End Date [employer] [employer] Medicare Part B [id number] Unknown Unknown AETNA Medicare Part B [id number] Unknown Unknown Family history Father Diagnosis Age At Onset Breast cancer Unknown Mother Diagnosis Age At Onset Arthritis Unknown Sister Diagnosis Age At Onset Heart Attack Unknown Arthritis Unknown Colon cancer Unknown Breast cancer Unknown Hyperlipidemia Unknown Hypertension Unknown Social History Social History Element Codes Description Effective Dates Marital status Unknown 07/12/2014 Number of children Unknown 2 07/12/2014 Employment Unknown Retired 07/12/[address]: 6699814 Quit over 10 years ago 1968 07/12/2014 Alcohol history Unknown occasionally drinks alcohol 07/12/2014 Allergies, Adverse Reactions, Alerts Allergies, Adverse Reactions, Alerts data not found Past Medical History Illness Codes Condition Status Onset Date Resolved Date Hemarthrosis, right shoulder ICD-9: 719.11 ICD-10: M25.011 Active 09/08/2016 Unknown Pain in right shoulder ICD-9: 719.41 ICD-10: M25.511 Active 10/02/2016 Unknown Chronic pain syndrome ICD-9: 338.4 ICD-10: G89.4 Active 10/07/2016 Unknown Rheumatoid arthritis without rheumatoid factor, left shoulder ICD-9: 714.0 ICD-10: M06.012 Active 03/12/2017 Unknown Rheumatoid arthritis without rheumatoid factor, right shoulder ICD-9: 714.0 ICD-10: M06.011 Active 03/12/2017 Unknown Essential (primary) hypertension ICD-9: 401.9 ICD-10: I10 Active 08/10/2014 Unknown Hypomagnesemia ICD-9: 275.2 ICD-10: E83.42 Active 07/30/2016 Unknown Primary osteoarthritis, right shoulder ICD-9: 715.91 ICD-10: M19.011 Active 10/07/2016 Unknown Encounter for immunization ICD-9: V04.81 ICD-10: Z23 Active 11/18/2015 Unknown Lymphedema, not elsewhere classified ICD-9: 457.1 ICD-10: I89.0 Active 11/17/2016 Unknown Urge incontinence ICD- 9: 788.31 ICD-10: N39.41 Active 11/05/2016 Unknown Other iron deficiency anemias ICD-9: 280.1 ICD-10: D50.8 Active 04/08/2015 Unknown Primary osteoarthritis, right hand ICD-9: 715.94 ICD-10: M19.041 Active 10/07/2016 Unknown Spondylosis without myelopathy or radiculopathy, cervical region ICD-9: 721.0 ICD-10: M47.812 Active 11/18/2015 Unknown Localized edema ICD-9 : 782.3 ICD-10: R60.0 Active 08/10/2014 Unknown Other chronic pain ICD -9: 338.29 ICD-10: G89.29 Active 07/11/2014 Unknown Iron deficiency anemia, unspecified ICD-9: 280.9 ICD-10: D50.9 Active 04/09/2015 Unknown Presbycusis, bilateral ICD-9: 388.01 ICD-10: H91.13 Active 10/07/2016 Unknown Primary osteoarthritis, left hand ICD-9: 715.94 ICD-10: M19.042 Active 10/07/2016 Unknown Primary osteoarthritis, 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 ICD-10: M19.012 Active 10/07/2016 Unknown Low back pain ICD-9: 724.2 ICD-10: M54.5 Active 09/12/2016 Unknown Sacroiliitis, not elsewhere classified ICD-9: 720.2 ICD-10: M46.1 Active 09/12/2016 Unknown Vitamin D deficiency, unspecified ICD-9: 268.9 ICD-10: E55.9 Active 07/11/2014 Unknown Nocturia ICD-9: 788.43 ICD-10: R35.1 Active 07/14/2016 Unknown Spinal stenosis, cervicothoracic region ICD-9: 723.0 ICD-10: M48.03 Active 01/28/2016 Unknown Torticollis ICD-9: 723.5 ICD-10: M43.6 Active 07/30/2016 Unknown Pain in left shoulder ICD-9: 719.41 ICD-10: M25.512 Active 07/04/2016 Unknown Encounter for screening mammogram for malignant neoplasm of breast ICD-9: V76.12 ICD-10: Z12.31 Active 11/18/2015 Unknown Mixed hyperlipidemia ICD-9: 272.4 ICD-10: E78.2 Active 07/11/2014 Unknown Insect bite (nonvenomous) of right upper arm, initial encounter ICD-9: 912.4 ICD-10: S40.861A Active 10/31/2015 Unknown Contusion of left upper arm, subsequent encounter ICD-9: V58.89 ICD-10: S40.022D Active 08/08/2015 Unknown Cellulitis of left upper limb ICD-9: 682.3 ICD-10: L03.114 Active 07/17/2015 Unknown Age-related osteoporosis with current pathological fracture , unspecified site, sequela ICD-9: 733.00 ICD-10: M80.00XS Active 07/11/2014 Unknown Blister (nonthermal), right lesser toe(s), sequela ICD-9: 906.2 ICD-10: S90.424S Active 05/30/2015 Unknown Impacted cerumen, bilateral ICD-9: 389.8 ICD-10: H61.23 Active 04/08/2015 Unknown Otalgia, bilateral ICD -9: 388.70 ICD-10: H92.03 Active 04/08/2015 Unknown Primary osteoarthritis, unspecified site ICD-9: 715.10 ICD-10: M19.91 Active 04/08/2015 Unknown Encounter for immunization ICD-9: V03.82 ICD-10: Z23 Active 12/10/2014 Unknown Leg pain ICD-9: 729.5 Active 10/22/2014 Unknown Ulcer of toe ICD-9: 707.15 Active 10/08/2014 Unknown EDEMA ICD-9: 782.3 Active 08/10/2014 Unknown ESSENTIAL HYPERTENSION ICD-9: 401.9 Active 08/10/2014 Unknown Diabetes Unknown Active 07/12/2014 Unknown Hyperlipidemia Unknown Active 07/12/2014 Unknown Hypertension Unknown Active 07/12/2014 Unknown Chronic pain ICD-9: 338.29 Active 07/11/2014 Unknown Esophageal reflux ICD- 9: 530.81 Active 07/11/2014 Unknown HYPERLIPIDEMIA ICD-9: 272.4 Active 07/11/2014 Unknown Osteoporosis ICD-9: 733.00 Active 07/11/2014 Unknown VITAMIN D DEFICIENCY ICD-9: 268.9 Active 07/11/2014 Unknown Problems Condition Codes Effective Dates Condition Status Hemarthrosis, right shoulder ICD-9: 719.11 ICD-10: M25.011 09/08/2016 Active Pain in right shoulder ICD-9: 719.41 ICD-10: M25.511 10/02/2016 Active Chronic pain syndrome ICD-9: 338.4 ICD-10: G89.4 10/07/2016 Active Rheumatoid arthritis without rheumatoid factor, left shoulder ICD-9: 714.0 ICD-10: M06.012 03/12/2017 Active Rheumatoid arthritis without rheumatoid factor, right shoulder ICD-9: 714.0 ICD-10: M06.011 03/12/2017 Active Essential (primary) hypertension ICD-9: 401.9 ICD-10: I10 08/10/2014 Active Hypomagnesemia ICD-9: 275.2 ICD-10: E83.42 07/30/2016 Active Primary osteoarthritis, right shoulder ICD-9: 715.91 ICD-10: M19.011 10/07/2016 Active Encounter for immunization ICD-9: V04.81 ICD-10: Z23 11/18/2015 Active Lymphedema, not elsewhere classified ICD-9: 457.1 ICD-10: I89.0 11/17/2016 Active Urge incontinence ICD- 9: 788.31 ICD-10: N39.41 11/05/2016 Active Other iron deficiency anemias ICD-9: 280.1 ICD-10: D50.8 04/08/2015 Active Primary osteoarthritis, right hand ICD-9: 715.94 ICD-10: M19.041 10/07/2016 Active Spondylosis without myelopathy or radiculopathy, cervical region ICD-9: 721.0 ICD-10: M47.812 11/18/2015 Active Localized edema ICD-9 : 782.3 ICD-10: R60.0 08/10/2014 Active Other chronic pain ICD -9: 338.29 ICD-10: G89.29 07/11/2014 Active Iron deficiency anemia, unspecified ICD-9: 280.9 ICD-10: D50.9 04/09/2015 Active Presbycusis, bilateral ICD-9: 388.01 ICD-10: H91.13 10/07/2016 Active Primary osteoarthritis, left hand ICD-9: 715.94 ICD-10: M19.042 10/07/2016 Active Primary osteoarthritis, 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 ICD-10: M19.012 10/07/2016 Active Low back pain ICD-9: 724.2 ICD-10: M54.5 09/12/2016 Active Sacroiliitis, not elsewhere classified ICD-9: 720.2 ICD-10: M46.1 09/12/2016 Active Vitamin D deficiency, unspecified ICD-9: 268.9 ICD-10: E55.9 07/11/2014 Active Nocturia ICD-9: 788.43 ICD-10: R35.1 07/14/2016 Active Spinal stenosis, cervicothoracic region ICD-9: 723.0 ICD-10: M48.03 01/28/2016 Active Torticollis ICD-9: 723.5 ICD-10: M43.6 07/30/2016 Active Pain in left shoulder ICD-9: 719.41 ICD-10: M25.512 07/04/2016 Active Encounter for screening mammogram for malignant neoplasm of breast ICD-9: V76.12 ICD-10: Z12.31 11/18/2015 Active Mixed hyperlipidemia ICD-9: 272.4 ICD-10: E78.2 07/11/2014 Active Insect bite (nonvenomous) of right upper arm, initial encounter ICD-9: 912.4 ICD-10: S40.861A 10/31/2015 Active Contusion of left upper arm, subsequent encounter ICD-9: V58.89 ICD-10: S40.022D 08/08/2015 Active Cellulitis of left upper limb ICD-9: 682.3 ICD-10: L03.114 07/17/2015 Active Age-related osteoporosis with current pathological fracture , unspecified site, sequela ICD-9: 733.00 ICD-10: M80.00XS 07/11/2014 Active Blister (nonthermal), right lesser toe(s), sequela ICD-9: 906.2 ICD-10: S90.424S 05/30/2015 Active Impacted cerumen, bilateral ICD-9: 389.8 ICD-10: H61.23 04/08/2015 Active Otalgia, bilateral ICD -9: 388.70 ICD-10: H92.03 04/08/2015 Active Primary osteoarthritis, unspecified site ICD-9: 715.10 ICD-10: M19.91 04/08/2015 Active Encounter for immunization ICD-9: V03.82 ICD-10: Z23 12/10/2014 Active Leg pain ICD-9: 729.5 10/22/2014 Active Ulcer of toe ICD-9: 707.15 10/08/2014 Active EDEMA ICD-9: 782.3 08/10/2014 Active ESSENTIAL HYPERTENSION ICD-9: 401.9 08/10/2014 Active Diabetes Unknown 07/12/2014 Active Hyperlipidemia Unknown 07/12/2014 Active Hypertension Unknown 07/12/2014 Active Chronic pain ICD-9: 338.29 07/11/2014 Active Esophageal reflux ICD- 9: 530.81 07/11/2014 Active HYPERLIPIDEMIA ICD-9: 272.4 07/11/2014 Active Osteoporosis ICD-9: 733.00 07/11/2014 Active VITAMIN D DEFICIENCY ICD-9: 268.9 07/11/2014 Active Medications Medication Codes Instructions Start Date Stop Date Status Fill Instructions fentanyl 100 mcg/hr transdermal patch RxNorm: 294625 1 Patch TD Q72H 04/08/2017 05/07/2017 Active fentanyl 25 mcg/hr transdermal patch RxNorm: 750718 1 Patch TD Q72H use with 100mcg patch for a total of 125mcg daily 04/08/2017 05/07/2017 Active Kenalog 40 mg/mL suspension for injection RxNorm: 8789408 1.5 Milliliter(s) Inj 04/02/2017 04/02/2017 Inactive fentanyl 100 mcg/hr transdermal patch RxNorm: 585521 1 Patch TD Q72H 03/12/2017 04/07/2017 Inactive fentanyl 25 mcg/hr transdermal patch RxNorm: 305048 1 Patch TD Q72H use with 100mcg patch for a total of 125mcg daily 03/12/2017 04/07/2017 Inactive oxycodone 30 mg tablet RxNorm: 9290763 1/2 Tablet(s) PO Q6 09/201704/07/2017 Inactive cyanocobalamin (vit B-12) 1,000 mcg/mL injection syringe RxNorm: 369214 1 Milliliter(s) Inj monthly 02/16/2017 No Stop Date Active please provide with supplys needed for injection fentanyl 100 mcg/hr transdermal patch RxNorm: 405085 1 Patch TD Q72H 02/06/2017 03/07/2017 Inactive Myrbetriq 50 mg tablet,extended release RxNorm: 8699919 1 Tablet(s) PO QPM 12/11/2016 07/08/2017 Active naproxen 500 mg tablet RxNorm: 484778 1 Tablet(s) PO BID Take 1 tablet by mouth two times daily as needed 12/08/201612/02 Active - First Attempt Ref: [id number] oxycodone 30 mg tablet RxNorm: 9611101 1/2 Tablet(s) PO Q6 10/201601/06/2017 Inactive Myrbetriq 50 mg tablet,extended release RxNorm: 8506132 1 Tablet(s) PO QPM 11/17/2016 12/10/2016 Inactive fentanyl 100 mcg/hr transdermal patch RxNorm: 286873 1 Patch TD Q72H 11/12/2016 12/11/2016 Inactive Vesicare 10 mg tablet RxNorm: 218700 1 Tablet(s) PO QPM 201611/18/2016 Inactive oxycodone 10 mg tablet RxNorm: 7927675 1-2 Tablet(s) PO Q4 PRN as needed to take between 30mg dose if needed for extra pain control 201612/07/2016 Inactive fentanyl 75 mcg/hr transdermal patch RxNorm: 505641 1 TD Q72H 10/22/2016 11/10/2016 Inactive oxycodone 10 mg tablet RxNorm: 9824619 1-2 Tablet(s) PO Q4 PRN as needed to take between 30mg dose if needed for extra pain control 201611/04/2016 Inactive Kenalog 40 mg/mL suspension for injection RxNorm: 5745409 1 Milliliter(s) Inj 10/02/2016 10/02/2016 Inactive Kenalog 40 mg/mL suspension for injection RxNorm: 9647909 1 Milliliter(s) Inj 09/12/2016 09/12/2016 Inactive cyclobenzaprine 5 mg tablet RxNorm: 835809 1 Tablet(s) PO Q8 as needed muscle spasms 09/11/2016 No Stop Date Active prednisone 10 mg tablets in a dose pack RxNorm: 976358 1 Tablet(s) PO UD 09/09/2016 No Stop Date Active potassium chloride ER 10 mEq capsule,extended release RxNorm: 206630 1 Capsule(s) PO BID as needed when taking lasix 08/26/2016 08/20/2017 Active Lasix 20 mg tablet RxNorm: 983692 1 Tablet(s) PO BID daily x 10 days then as needed edema 08/26/2016 12/23/2016 Inactive naproxen 500 mg tablet RxNorm: 620776 Take 1 tablet by mouth two times daily as needed 08/18/2016 11/15/2016 Inactive - First Attempt Ref: [id number] Lasix 20 mg tablet RxNorm: 1 Tablet(s) PO QAM daily x 10 days then as needed edema 08/18/2016 08/25/2016 Inactive Vesicare 5 mg tablet RxNorm: 370225 1 Tablet(s) PO QPM 201611/04/2016 Inactive potassium chloride ER 10 mEq capsule,extended release RxNorm: 979802 1 Capsule(s) PO QAM as needed when taking lasix 08/18/2016 08/25/2016 Inactive Myrbetriq 25 mg tablet,extended release RxNorm: 2823665 1 Tablet(s) PO QHS 07/14/2016 07/29/2016 Inactive pantoprazole 40 mg tablet,delayed release RxNorm: 343490 Take 1 tablet by mouth daily 06/30/2016 12/26/2016 Inactive - Ref: [id number] Embeda 20 mg-0.8 mg capsule, extend release, oral only RxNorm: 389508 1 Capsule(s ) PO daily 06/04/2016 06/03/2016 Inactive Embeda 20 mg-0.8 mg capsule, extend release, oral only RxNorm: 481641 1 Capsule(s ) PO daily 06/04/2016 07/01/2016 Inactive oxycodone 10 mg tablet RxNorm: 9226857 1 Tablet(s) PO QID as needed to take between 30mg dose if needed for extra pain control 201606/10/2016 Inactive oxycodone 30 mg tablet RxNorm: 6793653 1 Tablet(s) PO Q6 201611/04/2016 Inactive cyanocobalamin (vit B-12) 1,000 mcg/mL injection solution RxNorm: 853439 1 Milliliter(s) Inj monthly 02/22/201602/15 Inactive she also needs syringes/ needles for this solution QS oxycodone 30 mg tablet RxNorm: 5365809 1 Tablet(s) PO Q6 201503/19/2016 Inactive oxycodone 10 mg tablet RxNorm: 7749902 1 Tablet(s) PO QID as needed to take between 30mg dose if needed for extra pain control 201503/19/2016 Inactive oxycodone 10 mg tablet RxNorm: 5430702 1 Tablet(s) PO QID as needed to take between 30mg dose if needed for extra pain control 201502/18/2016 Inactive oxycodone 30 mg tablet RxNorm: 5675566 1 Tablet(s) PO Q6 201502/18/2016 Inactive pantoprazole 40 mg tablet,delayed release RxNorm: 793406 Take 1 tablet by mouth daily 01/22/2016 06/29/2016 Inactive - First Attempt Ref: [id number] oxycodone 30 mg tablet RxNorm: 7100422 1 Tablet(s) PO Q6 201501/28/2016 Inactive oxycodone 10 mg tablet RxNorm: 5962786 1 Tablet(s) PO QID as needed take between 20mg dose if needed for extra pain control 11/07/2015 12/06/2015 Inactive oxycodone 20 mg tablet RxNorm: 4821864 1 Tablet(s) PO Q6 as needed 11/07/2015 12/31/2015 Inactive doxycycline hyclate 100 mg tablet RxNorm: 245484 1 Tablet(s) PO BID 11/01/2015 11/10/2015 Inactive potassium chloride ER 10 mEq capsule,extended release RxNorm: 465649 1 Capsule(s) PO TIW as needed when taking lasix 09/04/2015 08/17/2016 Inactive Voltaren 1 % topical gel RxNorm: 250912 2 Gram(s) TOP QID 08/2909/03/2015 Inactive pa approved Voltaren 1 % topical gel RxNorm: 542305 2 Gram(s) TOP QID 08/0808/29/2015 Inactive naproxen 500 mg tablet RxNorm: 466368 1 Tablet(s) PO BID 201508/17/2016 Inactive naproxen 500 mg tablet RxNorm: 080162 1 Tablet(s) PO BID 201508/08/2015 Inactive doxycycline hyclate 100 mg tablet RxNorm: 928137 1 Tablet(s) PO BID do not take calcium/vitamin d while on antibiotic 07/18/2015 07/31/2015 Inactive Vitamin D2 50,000 unit capsule RxNorm: 010958 1 Capsule(s) PO QW 07/02/2015 11/18/2015 Inactive Premarin 0.3 mg tablet RxNorm: 458307 1 Tablet(s) PO daily 12/201505/09/2015 Inactive Premarin 0.3 mg tablet RxNorm: 951224 1 Tablet(s) PO daily 12/201503/17/2016 Inactive simvastatin 40 mg tablet RxNorm: 994104 1 Tablet(s) PO daily 03/17/2016 Inactive spironolactone 25 mg tablet RxNorm: 485987 TAKE ONE TABLET BY MOUTH DAILY 05/07/2015 05/27/2016 Inactive potassium chloride ER 10 mEq capsule,extended release RxNorm: 661285 1 Capsule(s) PO TIW as needed when taking lasix 04/17/2015 09/03/2015 Inactive alendronate 70 mg tablet RxNorm: 123043 1 Tablet(s) PO weekly QW 04/17/2015 07/01/2015 Inactive Vitamin D2 50,000 unit capsule RxNorm: 898483 1 Capsule(s) PO QW 03/30/2015 06/27/2015 Inactive Vitamin D2 50,000 unit capsule RxNorm: 854402 1 Capsule(s) PO QW 03/21/2015 03/29/2015 Inactive cyanocobalamin (vit B-12) 1,000 mcg/mL injection solution RxNorm: 127438 1 Milliliter(s) Inj monthly 03/19/201502/20 Inactive cyanocobalamin (vit B-12) 1,000 mcg/mL injection solution RxNorm: 614102 1 Milliliter(s) Inj monthly 03/16/201503/18 Inactive cyanocobalamin (vit B-12) 1,000 mcg/mL injection solution RxNorm: 658404 1 Milliliter(s) Inj monthly 03/16/201503/15 Inactive pantoprazole 40 mg tablet,delayed release RxNorm: 487343 1 Tablet(s) PO daily 03/05/2015 01/21/2016 Inactive Lasix 20 mg tablet RxNorm: 019646 1 Tablet(s) PO TIW as needed edema 02/08/2015 02/02/2016 Inactive oxycodone 10 mg tablet RxNorm: 4489152 1 Tablet(s) PO QID as needed take between 20mg dose if needed for extra pain control 11/09/2014 12/08/2014 Inactive oxycodone 20 mg tablet RxNorm: 7063657 1 Tablet(s) PO Q6 as needed 10/25/2014 11/06/2015 Inactive doxycycline hyclate 100 mg tablet RxNorm: 210580 1 Tablet(s) PO BID 10/23/2014 11/19/2014 Inactive Cipro 500 mg tablet RxNorm: 218715 1 Tablet(s) PO BID 201410/16/2014 Inactive Cipro 500 mg tablet RxNorm: 787370 1 Tablet(s) PO BID 201410/09/2014 Inactive oxycodone 20 mg tablet RxNorm: 4643009 1 Tablet(s) PO Q6 as needed 09/25/2014 10/24/2014 Inactive Lasix 20 mg tablet RxNorm: 385293 1 Tablet(s) PO TIW as needed edema 09/14/2014 01/11/2015 Inactive potassium chloride ER 10 mEq capsule,extended release RxNorm: 292964 1 Capsule(s) PO TIW as needed when taking lasix 09/14/2014 01/11/2015 Inactive doxycycline hyclate 100 mg tablet RxNorm: 359143 1 Tablet(s) PO BID 09/05/2014 09/14/2014 Inactive doxycycline hyclate 100 mg tablet RxNorm: 200054 1 Tablet(s) PO BID 09/05/2014 09/04/2014 Inactive oxycodone 20 mg tablet RxNorm: 5680187 1 Tablet(s) PO Q6 as needed 08/29/2014 09/24/2014 Inactive spironolactone 25 mg tablet RxNorm: 062822 1 Tablet(s) PO daily 08/11/2014 03/08/2015 Inactive oxycodone 20 mg tablet RxNorm: 0558528 1 Tablet(s) PO Q6 as needed 08/02/2014 08/28/2014 Inactive Vitamin D3 2,000 unit tablet RxNorm: 872033 1 Tablet(s) PO daily 07/14/2014 No Stop Date Active Vitamin D2 50,000 unit capsule RxNorm: 464126 1 Capsule(s) PO QW 07/14/2014 10/11/2014 Inactive Vitamin D2 50,000 unit capsule RxNorm: 840153 1 Capsule(s) PO QW 07/14/2014 07/13/2014 Inactive Prolia 60 mg/mL subcutaneous syringe RxNorm: 686727 Milliliter(s) SQ EVERY 6 MONTHS No Start Date Active aspirin 81 mg tablet RxNorm: 984632 1 Tablet(s) PO daily No Start Date Active Carafate 1 gram tablet RxNorm: 605830 1 Tablet(s) PO BID No Start Date Active Miralax oral RxNorm: 714408 oral No Start Date Active Stool Softener oral RxNorm: 77139 oral No Start Date Active Calcium + Vitamin D oral RxNorm: 4018 oral No Start Date Active naproxen 500 mg tablet RxNorm: 376237 1 Tablet(s) PO BID No Start Date 08/05/2015 Inactive oxycodone 20 mg tablet RxNorm: 7022028 1 Tablet(s) PO Q6 as needed No Start Date 08/01/2014 Inactive simvastatin 40 mg tablet RxNorm: 554813 1 Tablet(s) PO daily No Start Date 05/09/2015 Inactive cyanocobalamin (vit B-12) 1,000 mcg/mL injection syringe RxNorm: 008803 1 Inj monthly No Start Date 02/15/2017 Inactive Reglan 10 mg tablet RxNorm: 516696 1 Tablet(s) PO as needed No Start Date 07/29/2016 Inactive alendronate 70 mg tablet RxNorm: 330011 1 Tablet(s) PO weekly No Start Date 04/16/2015 Inactive Protonix 40 mg tablet,delayed release RxNorm: 735984 1 Tablet(s) PO daily No Start Date 03/04/2015 Inactive cyclobenzaprine 5 mg tablet RxNorm: 817679 1 Tablet(s) PO Q8 as needed muscle spasms No Start Date 09/10/2016 Inactive Vitamin D3 1,000 unit capsule RxNorm: 212493 1 Capsule(s) PO daily No Start Date 07/13/2014 Inactive prednisone 10 mg tablets in a dose pack RxNorm: 971465 1 Tablet(s) PO UD No Start Date 09/08/2016 Inactive Medication Administered Medication Codes Instructions Start Date Status Kenalog 40 mg/mL suspension for injection RxNorm: 1248921 1.5Milliliter 04/02/2017 No longer Active Kenalog 40 mg/mL suspension for injection RxNorm: 4421162 1Milliliter 10/02/2016 No longer Active Kenalog 40 mg/mL suspension for injection RxNorm: 8116262 1Milliliter 09/12/2016 No longer Active Immunizations Vaccine Codes Date Status Influenza CVX: 141 12/08/2016 completed Influenza CVX: 141 11/19/2015 completed Influenza CVX: 141 01/10/2015 completed Pneumococcal (Adult) CVX: 133 12/11/2014 completed Pneumococcal (Adult) CVX: 133 12/11/2014 completed Assessments Condition Codes Effective Dates Pain in right shoulder ICD-10: M25.511 ICD-9: 719.41 04/02/2017 Hemarthrosis, right shoulder ICD-10: M25.011 ICD-9: 719.11 04/02/2017 Chronic pain syndrome ICD-10: G89.4 ICD-9: 338.4 03/12/2017 Rheumatoid arthritis without rheumatoid factor, left shoulder ICD-10: M06.012 ICD-9: 714.0 03/12/2017 Rheumatoid arthritis without rheumatoid factor, right shoulder ICD-10: M06.011 ICD-9: 714.0 03/12/2017 Hypomagnesemia ICD-10: E83.42 ICD-9: 275.2 01/08/2017 Essential (primary) hypertension ICD-10: I10 ICD-9: 401.9 01/08/2017 Primary osteoarthritis, 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 ICD-9: 715.91 01/08/2017 Encounter for immunization ICD-10: Z23 ICD-9: V04.81 12/08/2016 Lymphedema, not elsewhere classified ICD-10: I89.0 ICD-9: 457.1 11/17/2016 Urge incontinence ICD-10: N39.41 ICD-9: 788.31 11/17/2016 Primary osteoarthritis, right hand ICD-10: M19.041 ICD-9: 715.94 11/10/2016 Other iron deficiency anemias ICD-10: D50.8 ICD-9: 280.1 11/10/2016 Spondylosis without myelopathy or radiculopathy, cervical region ICD-10: M47.812 ICD-9: 721.0 11/10/2016 Other chronic pain ICD-10: G89.29 ICD-9: 338.29 11/05/2016 Localized edema ICD-10: R60.0 ICD-9: 782.3 11/05/2016 Presbycusis, bilateral ICD-10: H91.13 ICD-9: 388.01 10/07/2016 Primary osteoarthritis, left hand ICD-10: M19.042 ICD-9: 715.94 10/07/2016 Primary osteoarthritis, left shoulder ICD-10: M19.012 ICD-9: 715.91 10/07/2016 Low back pain ICD-10: M54.5 ICD-9: 724.2 09/12/2016 Sacroiliitis, not elsewhere classified ICD-10: M46.1 ICD-9: 720.2 09/12/2016 Vitamin D deficiency, unspecified ICD-10: E55.9 ICD-9: 268.9 08/26/2016 Nocturia ICD-10: R35.1 ICD-9: 788.43 07/30/2016 Torticollis ICD-10: M43.6 ICD-9: 723.5 07/30/2016 Spinal stenosis, 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 ICD-9: 723.0 07/30/2016 Pain in left shoulder ICD-10: M25.512 ICD-9: 719.41 07/14/2016 Myalgia ICD-10: M79.1 ICD-9: 729.1 03/18/2016 Mixed hyperlipidemia ICD-10: E78.2 ICD-9: 272.4 11/19/2015 Encounter for screening mammogram for malignant neoplasm of breast ICD-10: Z12.31 ICD-9: V76.12 11/19/2015 Insect bite (nonvenomous) of right upper arm, initial encounter ICD-10: S40.861A ICD-9: 912.4 11/01/2015 Contusion of left upper arm, subsequent encounter ICD-10: S40.022D ICD-9: V58.89 2015 Cellulitis of left upper limb ICD-10: L03.114 ICD-9: 682.3 07/18/2015 Age-related osteoporosis with current pathological fracture, unspecified site, sequela ICD-10: M80.00XS ICD-9: 733.00 07/02/2015 Blister (nonthermal), right lesser toe(s), sequela ICD-10: S90.424S ICD-9: 906.2 05/31/2015 Iron deficiency anemia, unspecified ICD-10: D50.9 ICD-9: 280.9 04/10/2015 Primary osteoarthritis, unspecified site ICD-10: M19.91 ICD-9: 715.10 04/09/2015 Otalgia, bilateral ICD-10: H92.03 ICD-9: 388.70 04/09/2015 Impacted cerumen, bilateral ICD-10: H61.23 ICD-9: 389.8 04/09/2015 Encounter for immunization ICD-10: Z23 ICD-9: V03.82 12/11/2014 ESSENTIAL HYPERTENSION ICD-9: 401.9 11/09 EDEMA ICD-9: 782.3 11/09/2014 Ulcer of toe ICD-9: 707.15 10/23/2014 Leg pain ICD-9: 729.5 10/23/2014 Chronic pain ICD-9: 338.29 07/12/2014 VITAMIN D DEFICIENCY ICD-9: 268.9 2014 HYPERLIPIDEMIA ICD-9: 272.4 07/12/2014 Esophageal reflux ICD-9: 530.81 2014 Osteoporosis ICD-9: 733.00 07/12/2014 Reason For Visit Reason For Visit Effective Dates Notes shoulder pain 04/02/2017 shoulder pain 03/12/2017 shoulder pain 01/08/2017 shoulder pain 12/08/2016 shoulder pain 11/17/2016 shoulder pain 11/10/2016 shoulder pain 11/05/2016 Hospital Follow Up 10/07/2016 shoulder pain 10/02/2016 worsening sciatica 09/12/2016 shoulder pain 09/08/2016 worsening urinary frequency 08/26/2016 urinary frequency 08/18/2016 Hospital Follow Up 07/30/2016 shoulder pain 07/14/2016 shoulder pain 07/04/2016 muscle weakness 06/26/2016 muscle weakness 05/28/2016 muscle weakness 03/18/2016 muscle weakness 01/29/2016 Hospital Follow Up 01/01/2016 muscle weakness 11/19/2015 rash 11/01/2015 muscle weakness 09/04/2015 abnormal bleeding and bruising 2015 abnormal bleeding and bruising 07/18/2015 hyperlipidemia 07/02/2015 pre-op/surgery consult 05/31/2015 hyperlipidemia 04/09/2015 hyperlipidemia 02/08/2015 vaccination against influenza 01/10/2015 skin lesion 12/11/2014 R 4th toe wound follow up 11/09/2014 R 4th toe skin lesion 10/23/2014 R 4th toe foot pain 10/16/2014 foot pain 10/09/2014 edema 09/14/2014 edema 08/11/2014 neck pain 07/12/2014 Results Observation Observation Code Item Item Code Result Date Luann Reflex Profile [id number] LUANN (BRYANNA) SCREEN NONE DETECTED 01/12/2017 Comp Metabolic Xho318 NA 129 mEq/L 01/08/2017 Comp Metabolic Bji432 K 3.9 mEq/L 01/08/2017 Comp Metabolic Mtr342 CL 94 mEq/L 01/08/2017 Comp Metabolic Eui399 CO2 31.0 mEq/L 01/08/2017 Comp Metabolic Lug083 ANION GAP 8 01/08/2017 Comp Metabolic Lho593 GLUCOSE 103 mg/dL 01/08/2017 Comp Metabolic Rjd269 Creat 0.9 mg/dL 01/08/2017 Comp Metabolic Vwu605 eGFR 61 ml/min/1.73m2 01/08/2017 Comp Metabolic Swg069 BUN 29 mg/dL 01/08/2017 Comp Metabolic Ekr210 B/C Ratio 30.9 Ratio 01/08/2017 Comp Metabolic Ksy694 CALCIUM 8.5 mg/dL 01/08/2017 Comp Metabolic Nvf609 ALK PHOS 58 U/L 01/08/2017 Comp Metabolic Xpe896 AST(SGOT) 17 U/L 01/08/2017 Comp Metabolic Tcw918 ALT(SGPT) 10 U/L 01/08/2017 Comp Metabolic Rac516 BILI T 0.4 mg/dL 01/08/2017 Comp Metabolic Mik532 ALBUMIN 3.0 g/dL 01/08/2017 Comp Metabolic Zeg047 TPRO 5.5 g/dL 01/08/2017 Comp Metabolic Hkw611 GLOB 2.5 g/dL 01/08/2017 Comp Metabolic Pyt439 A/G Ratio 1.2 Ratio 01/08/2017 Comp Metabolic Iua078 Osmo 265 mOsmo 01/08/2017 Cbc With Differential Ord2 WBC 6.95 K/ul 01/08/2017 Cbc With Differential Ord2 RBC 3.20 M/ul 01/08/2017 Cbc With Differential Ord2 HGB 10.8 g/dl 01/08/2017 Cbc With Differential Ord2 Neut% 62.9 % 01/08/2017 Cbc With Differential Ord2 HCT 32.7 % 01/08/2017 Cbc With Differential Ord2 Lymph% 23.3 % 01/08/2017 Cbc With Differential Ord2 MCV 102.2 fl 01/08/2017 Cbc With Differential Ord2 Gray% 12.2 % 01/08/2017 Cbc With Differential Ord2 MCH 33.8 pg 01/08/2017 Cbc With Differential Ord2 MCHC 33.0 pg 01/08/2017 Cbc With Differential Ord2 Eos% 0.9 % 01/08/2017 Cbc With Differential Ord2 PLT 211 K/ul 01/08/2017 Cbc With Differential Ord2 Baso% 0.7 % 01/08/2017 Cbc With Differential Ord2 RDW 13.6 % 01/08/2017 Cbc With Differential Ord2 Neut ABS# 4.37 K/ul 01/08/2017 Cbc With Differential Ord2 Lymph ABS# 1.62 K/ul 01/08/2017 Cbc With Differential Ord2 Gray ABS# 0.9 K/ul 01/08/2017 Cbc With Differential Ord2 Eos ABS# 0.1 K/ul 01/08/2017 Cbc With Differential Ord2 Baso ABS# 0.1 K/ul 01/08/2017 Magnesium Ord90 Mag 2.0 mg/dL 01/08/2017 Cbc With Differential Ord2 WBC 5.95 K/ul 11/10/2016 Cbc With Differential Ord2 RBC 3.44 M/ul 11/10/2016 Cbc With Differential Ord2 HGB 11.4 g/dl 11/10/2016 Cbc With Differential Ord2 Neut% 76.9 % 11/10/2016 Cbc With Differential Ord2 HCT 34.5 % 11/10/2016 Cbc With Differential Ord2 Lymph% 13.1 % 11/10/2016 Cbc With Differential Ord2 MCV 100.3 fl 11/10/2016 Cbc With Differential Ord2 MCH 33.1 pg 11/10/2016 Cbc With Differential Ord2 Gray% 9.1 % 11/10/2016 Cbc With Differential Ord2 Eos% 0.2 % 11/10/2016 Cbc With Differential Ord2 MCHC 33.0 pg 11/10/2016 Cbc With Differential Ord2 Baso% 0.7 % 11/10/2016 Cbc With Differential Ord2 PLT 280 K/ul 11/10/2016 Cbc With Differential Ord2 Neut ABS# 4.58 K/ul 11/10/2016 Cbc With Differential Ord2 RDW 18.4 % 11/10/2016 Cbc With Differential Ord2 Lymph ABS# 0.78 K/ul 11/10/2016 Cbc With Differential Ord2 Gray ABS# 0.5 K/ul 11/10/2016 Cbc With Differential Ord2 Eos ABS# 0.0 K/ul 11/10/2016 Cbc With Differential Ord2 Baso ABS# 0.0 K/ul 11/10/2016 Cbc With Differential Ord2 WBC 8.03 K/ul 10/07/2016 Cbc With Differential Ord2 RBC 3.27 M/ul 10/07/2016 Cbc With Differential Ord2 HGB 9.9 g/dl 10/07/2016 Cbc With Differential Ord2 Neut% 67.7 % 10/07/2016 Cbc With Differential Ord2 HCT 31.2 % 10/07/2016 Cbc With Differential Ord2 MCV 95.4 fl 10/07/2016 Cbc With Differential Ord2 Lymph% 19.2 % 10/07/2016 Cbc With Differential Ord2 MCH 30.3 pg 10/07/2016 Cbc With Differential Ord2 Gray% 11.8 % 10/07/2016 Cbc With Differential Ord2 MCHC 31.7 pg 10/07/2016 Cbc With Differential Ord2 Eos% 1.1 % 10/07/2016 Cbc With Differential Ord2 Baso% 0.2 % 10/07/2016 Cbc With Differential Ord2 PLT 570 K/ul 10/07/2016 Cbc With Differential Ord2 Neut ABS# 5.43 K/ul 10/07/2016 Cbc With Differential Ord2 RDW 18.2 % 10/07/2016 Cbc With Differential Ord2 Lymph ABS# 1.54 K/ul 10/07/2016 Cbc With Differential Ord2 Gray ABS# 1.0 K/ul 10/07/2016 Cbc With Differential Ord2 Eos ABS# 0.1 K/ul 10/07/2016 Cbc With Differential Ord2 Baso ABS# 0.0 K/ul 10/07/2016 Comp Metabolic Zkn373 NA 129 mEq/L 08/26/2016 Comp Metabolic Yhb095 K 3.9 mEq/L 08/26/2016 Comp Metabolic Vxc555 CL 93 mEq/L 08/26/2016 Comp Metabolic Ntn828 CO2 30.0 mEq/L 08/26/2016 Comp Metabolic Rhw565 ANION GAP 10 08/26/2016 Comp Metabolic Ysv876 GLUCOSE 87 mg/dL 08/26/2016 Comp Metabolic Mea668 Creat 0.6 mg/dL 08/26/2016 Comp Metabolic Imw655 eGFR 96 ml/min/1.73m2 08/26/2016 Comp Metabolic Can210 BUN 17 mg/dL 08/26/2016 Comp Metabolic Shw787 B/C Ratio 27.0 Ratio 08/26/2016 Comp Metabolic Pkp758 CALCIUM 7.6 mg/dL 08/26/2016 Comp Metabolic Dqa110 ALK PHOS 72 U/L 08/26/2016 Comp Metabolic Lyr418 AST(SGOT) 20 U/L 08/26/2016 Comp Metabolic Iri895 ALT(SGPT) 12 U/L 08/26/2016 Comp Metabolic Soj128 BILI T 0.3 mg/dL 08/26/2016 Comp Metabolic Ruu548 ALBUMIN 2.7 g/dL 08/26/2016 Comp Metabolic Hka445 TPRO 5.3 g/dL 08/26/2016 Comp Metabolic Src712 GLOB 2.6 g/dL 08/26/2016 Comp Metabolic Eln233 A/G Ratio 1.1 Ratio 08/26/2016 Comp Metabolic Sbu690 Osmo 260 mOsmo 08/26/2016 Cbc With Differential Ord2 WBC 9.86 K/ul 08/26/2016 Cbc With Differential Ord2 RBC 2.93 M/ul 08/26/2016 Cbc With Differential Ord2 HGB 8.3 g/dl 08/26/2016 Cbc With Differential Ord2 HCT 26.0 % 08/26/2016 Cbc With Differential Ord2 Neut% 70.9 % 08/26/2016 Cbc With Differential Ord2 Lymph% 18.6 % 08/26/2016 Cbc With Differential Ord2 MCV 88.7 fl 08/26/2016 Cbc With Differential Ord2 Gray% 9.6 % 08/26/2016 Cbc With Differential Ord2 MCH 28.3 pg 08/26/2016 Cbc With Differential Ord2 MCHC 31.9 pg 08/26/2016 Cbc With Differential Ord2 Eos% 0.5 % 08/26/2016 Cbc With Differential Ord2 PLT 442 K/ul 08/26/2016 Cbc With Differential Ord2 Baso% 0.4 % 08/26/2016 Cbc With Differential Ord2 RDW 14.1 % 08/26/2016 Cbc With Differential Ord2 Neut ABS# 6.99 K/ul 08/26/2016 Cbc With Differential Ord2 Lymph ABS# 1.83 K/ul 08/26/2016 Cbc With Differential Ord2 Gray ABS# 1.0 K/ul 08/26/2016 Cbc With Differential Ord2 Eos ABS# 0.1 K/ul 08/26/2016 Cbc With Differential Ord2 Baso ABS# 0.0 K/ul 08/26/2016 Magnesium Ord90 Mag 1.9 mg/dL 08/26/2016 Vitamin D 25 Oh Vec4468 VITAMIN D, 25 HYDROXY 34.59 ng/mL Tibc Ord40 Iron 13 ug/dl 08/26/2016 Tibc Ord40 UIBC 283 ug/dL 08/26/2016 Tibc Ord40 TIBC 296 ug/dL 08/26/2016 Tibc Ord40 Fe-%Sat 4.4 % 08/26/2016 Ferritin Ord22 FERRITIN 28.8 ng/mL 08/26/2016 Sed Rate Ord21 ESR 20 mm/hr 11/19/2015 Comp Metabolic Jyj798 NA 131 mEq/L 08/22/2015 Comp Metabolic Ftf021 K 4.2 mEq/L 08/22/2015 Comp Metabolic Nnk693 CL 98 mEq/L 08/22/2015 Comp Metabolic Fnf428 CO2 27.0 mEq/L 08/22/2015 Comp Metabolic Sox981 ANION GAP 10 08/22/2015 Comp Metabolic Syu554 GLUCOSE 80 mg/dL 08/22/2015 Comp Metabolic Rps541 Creat 0.5 mg/dL 08/22/2015 Comp Metabolic Rvu056 eGFR 120 ml/min/1.73m2 08/22/2015 Comp Metabolic Pjd944 BUN 13 mg/dL 08/22/2015 Comp Metabolic Ixd441 B/C Ratio 25.0 Ratio 08/22/2015 Comp Metabolic Tav919 CALCIUM 8.2 mg/dL 08/22/2015 Comp Metabolic Jmv793 ALK PHOS 49 U/L 08/22/2015 Comp Metabolic Pnu386 AST(SGOT) 18 U/L 08/22/2015 Comp Metabolic Wpn399 ALT(SGPT) 11 U/L 08/22/2015 Comp Metabolic Rqy568 BILI T 0.5 mg/dL 08/22/2015 Comp Metabolic Bfm751 ALBUMIN 3.5 g/dL 08/22/2015 Comp Metabolic Fxw410 TPRO 6.2 g/dL 08/22/2015 Comp Metabolic Yhm317 GLOB 2.7 g/dL 08/22/2015 Comp Metabolic Vdb140 A/G Ratio 1.3 Ratio 08/22/2015 Comp Metabolic Dxn098 Osmo 262 mOsmo 08/22/2015 Cbc With Differential Ord2 WBC 6.50 K/ul 08/22/2015 Cbc With Differential Ord2 RBC 3.67 M/ul 08/22/2015 Cbc With Differential Ord2 HGB 11.9 g/dl 08/22/2015 Cbc With Differential Ord2 HCT 35.8 % 08/22/2015 Cbc With Differential Ord2 Neut% 66.7 % 08/22/2015 Cbc With Differential Ord2 MCV 97.5 fl 08/22/2015 Cbc With Differential Ord2 Lymph% 21.4 % 08/22/2015 Cbc With Differential Ord2 Gray% 10.3 % 08/22/2015 Cbc With Differential Ord2 MCH 32.4 pg 08/22/2015 Cbc With Differential Ord2 Eos% 1.1 % 08/22/2015 Cbc With Differential Ord2 MCHC 33.2 pg 08/22/2015 Cbc With Differential Ord2 Baso% 0.5 % 08/22/2015 Cbc With Differential Ord2 PLT 255 K/ul 08/22/2015 Cbc With Differential Ord2 Neut ABS# 4.34 K/ul 08/22/2015 Cbc With Differential Ord2 RDW 13.6 % 08/22/2015 Cbc With Differential Ord2 Lymph ABS# 1.39 K/ul 08/22/2015 Cbc With Differential Ord2 Gray ABS# 0.7 K/ul 08/22/2015 Cbc With Differential Ord2 Eos ABS# 0.1 K/ul 08/22/2015 Cbc With Differential Ord2 Baso ABS# 0.0 K/ul 08/22/2015 Tsh Ord6 hTSH II 2.19 uIU/mL 08/22/2015 Vitamin D 25 Oh [id number] VITAMIN D, 25 HYDROXY 55.10 ng/mL Lipid Ord30 CHOL 163 mg/dL 08/22/2015 Lipid Ord30 HDL 92.0 mg/dl 08/22/2015 Lipid Ord30 TRIG 61 mg/dL 08/22/2015 Lipid Ord30 LDL 59 mg/dL 08/22/2015 Lipid Ord30 C/HDL 1.8 Ratio 08/22/2015 Tibc Ord40 Iron 22 ug/dl 04/10/2015 Tibc Ord40 UIBC 379 ug/dL 04/10/2015 Tibc Ord40 TIBC 401 ug/dL 04/10/2015 Tibc Ord40 Fe-%Sat 5.5 % 04/10/2015 Iron Ord72 Iron 22 ug/dl 04/09/2015 Tsh Ord6 hTSH II 3.50 uIU/mL 03/16/2015 Lipid Ord30 CHOL 159 mg/dL 03/16/2015 Lipid Ord30 HDL 105.0 mg/dl 03/16/2015 Lipid Ord30 TRIG 66 mg/dL 03/16/2015 Lipid Ord30 LDL 41 mg/dL 03/16/2015 Lipid Ord30 C/HDL 1.5 Ratio 03/16/2015 Vitamin D 25 Oh [id number] VITAMIN D, 25 HYDROXY 28.94 ng/mL Cbc With Differential Ord2 WBC 7.41 K/ul 03/16/2015 Cbc With Differential Ord2 RBC 3.45 M/ul 03/16/2015 Cbc With Differential Ord2 HGB 9.7 g/dl 03/16/2015 Cbc With Differential Ord2 Neut% 55.2 % 03/16/2015 Cbc With Differential Ord2 HCT 30.4 % 03/16/2015 Cbc With Differential Ord2 MCV 88.1 fl 03/16/2015 Cbc With Differential Ord2 Lymph% 32.0 % 03/16/2015 Cbc With Differential Ord2 MCH 28.1 pg 03/16/2015 Cbc With Differential Ord2 Gray% 11.2 % 03/16/2015 Cbc With Differential Ord2 Eos% 1.2 % 03/16/2015 Cbc With Differential Ord2 MCHC 31.9 pg 03/16/2015 Cbc With Differential Ord2 Baso% 0.4 % 03/16/2015 Cbc With Differential Ord2 PLT 346 K/ul 03/16/2015 Cbc With Differential Ord2 RDW 13.2 % 03/16/2015 Cbc With Differential Ord2 Neut ABS# 4.09 K/ul 03/16/2015 Cbc With Differential Ord2 Lymph ABS# 2.37 K/ul 03/16/2015 Cbc With Differential Ord2 Gray ABS# 0.8 K/ul 03/16/2015 Cbc With Differential Ord2 Eos ABS# 0.1 K/ul 03/16/2015 Cbc With Differential Ord2 Baso ABS# 0.0 K/ul 03/16/2015 Cbc With Differential Ord2 New Analyzer Notice Please note new ref ranges starting 03-14-2015 due to implemntation of new five part differential hematolgy analyzer. 03/16/2015 Comp Metabolic Fhb103 NA 131 mEq/L 03/16/2015 Comp Metabolic Vvh734 K 4.1 mEq/L 03/16/2015 Comp Metabolic Zho602 CL 94 mEq/L 03/16/2015 Comp Metabolic Mfe850 CO2 28.0 mEq/L 03/16/2015 Comp Metabolic Czm350 ANION GAP 13 03/16/2015 Comp Metabolic Ibs577 GLUCOSE 96 mg/dL 03/16/2015 Comp Metabolic Jvi828 Creat 0.7 mg/dL 03/16/2015 Comp Metabolic Few797 eGFR 80 ml/min/1.73m2 03/16/2015 Comp Metabolic Yfl348 BUN 16 mg/dL 03/16/2015 Comp Metabolic Odj380 B/C Ratio 21.6 Ratio 03/16/2015 Comp Metabolic Dgx513 CALCIUM 8.9 mg/dL 03/16/2015 Comp Metabolic Oye957 ALK PHOS 44 U/L 03/16/2015 Comp Metabolic Mqs017 AST(SGOT) 22 U/L 03/16/2015 Comp Metabolic Qdq477 ALT(SGPT) 14 U/L 03/16/2015 Comp Metabolic Ezm865 BILI T 0.5 mg/dL 03/16/2015 Comp Metabolic Zbo933 ALBUMIN 3.4 g/dL 03/16/2015 Comp Metabolic Hdo636 TPRO 6.0 g/dL 03/16/2015 Comp Metabolic Afr362 GLOB 2.6 g/dL 03/16/2015 Comp Metabolic Pxq443 A/G Ratio 1.3 Ratio 03/16/2015 Comp Metabolic Cat473 Osmo 264 mOsmo 03/16/2015 Comp Metabolic Bym947 NA 129 mEq/L 11/09/2014 Comp Metabolic Kfq660 K 4.2 mEq/L 11/09/2014 Comp Metabolic Waj611 CL 96 mEq/L 11/09/2014 Comp Metabolic Evd878 CO2 27.0 mEq/L 11/09/2014 Comp Metabolic Kmw968 ANION GAP 10 11/09/2014 Comp Metabolic Lif327 GLUCOSE 144 mg/dL 11/09/2014 Comp Metabolic Evt317 Creat 0.8 mg/dL 11/09/2014 Comp Metabolic Sbo018 eGFR 73 ml/min/1.73m2 11/09/2014 Comp Metabolic Eqc477 BUN 22 mg/dL 11/09/2014 Comp Metabolic Pso651 B/C Ratio 27.5 Ratio 11/09/2014 Comp Metabolic Azh612 CALCIUM 8.6 mg/dL 11/09/2014 Comp Metabolic Bhg655 ALK PHOS 55 U/L 11/09/2014 Comp Metabolic Gjc829 AST(SGOT) 27 U/L 11/09/2014 Comp Metabolic Fbi405 ALT(SGPT) 18 U/L 11/09/2014 Comp Metabolic Suy050 BILI T 0.5 mg/dL 11/09/2014 Comp Metabolic Xbk541 ALBUMIN 3.0 g/dL 11/09/2014 Comp Metabolic Wmh422 TPRO 5.4 g/dL 11/09/2014 Comp Metabolic Bel479 GLOB 2.4 g/dL 11/09/2014 Comp Metabolic Xuk194 A/G Ratio 1.3 Ratio 11/09/2014 Comp Metabolic Xtl722 Osmo 265 mOsmo 11/09/2014 Magnesium Ord90 Mag 1.8 mg/dL 11/09/2014 Review of Systems System Result Effective Dates Constitutional No recent illness 2017 Constitutional No fatigue 04/02/2017 Constitutional No fever 04/02/2017 Musculoskeletal stiffness 04/02/2017 Musculoskeletal swelling 04/02/2017 Constitutional recent illness 03/12/2017 Constitutional No anorexia 03/12/2017 Constitutional No night sweats 2017 Constitutional No chills 03/12/2017 Constitutional No diaphoresis 03/12/2017 Constitutional fatigue 03/12/2017 Constitutional No fever 03/12/2017 Constitutional No insomnia 03/12/2017 Constitutional malaise 03/12/2017 Eyes No blindness 03/12/2017 Eyes No vision change 03/12/2017 Ears/Nose/Throat/Neck No dental pain 12/2017 Ears/Nose/Throat/Neck No dizziness 2017 Ears/Nose/Throat/Neck No dysphagia 2017 Ears/Nose/Throat/Neck No headache 2017 Ears/Nose/Throat/Neck No hearing loss 12/2017 Ears/Nose/Throat/Neck No nasal allergies 03/12/2017 Ears/Nose/Throat/Neck No sore throat 12/2017 Ears/Nose/Throat/Neck No postnasal drip 03/12/2017 Ears/Nose/Throat/Neck No sinus congestion 03/12/2017 Cardiovascular No chest pain/pressure 12/2017 Cardiovascular No dyspnea 03/12/2017 Cardiovascular edema 03/12/2017 Cardiovascular No exercise intolerance Cardiovascular No near-syncope/dizziness 03/12/2017 Respiratory No chest tightness 2017 Respiratory No cigarette smoking 2017 Respiratory No cough 03/12/2017 Respiratory No dyspnea 03/12/2017 Respiratory No pedal edema 03/12/2017 Respiratory No snoring 03/12/2017 Respiratory No wheezing 03/12/2017 Gastrointestinal No hemorrhoids 2017 Gastrointestinal No abdominal pain 2017 Gastrointestinal No constipation 2017 Gastrointestinal No diarrhea 03/12/2017 Gastrointestinal No gastroesophageal reflux 03/12/2017 Gastrointestinal No melena 03/12/2017 Gastrointestinal No nausea 03/12/2017 Gastrointestinal No vomiting 03/12/2017 Musculoskeletal stiffness 03/12/2017 Musculoskeletal arthralgia(s) 03/12/2017 Musculoskeletal back pain 03/12/2017 Musculoskeletal muscle weakness 2017 Musculoskeletal neck pain 03/12/2017 Dermatologic No rash 03/12/2017 Dermatologic No scar 03/12/2017 Neurologic neck pain 03/12/2017 Psychiatric No anxiety 03/12/2017 Psychiatric No depression 03/12/2017 Hematologic/Lymphatic abnormal ecchymoses 03/12/2017 Constitutional No recent illness 2016 Constitutional No fever 02/06/2017 Constitutional No fatigue 02/06/2017 Musculoskeletal swelling 02/06/2017 Musculoskeletal stiffness 02/06/2017 Constitutional No recent illness 2016 Constitutional No anorexia 01/08/2017 Constitutional No night sweats 2016 Constitutional No chills 01/08/2017 Constitutional No diaphoresis 01/08/2017 Constitutional fatigue 01/08/2017 Constitutional No fever 01/08/2017 Constitutional No insomnia 01/08/2017 Constitutional No malaise 01/08/2017 Eyes No blindness 01/08/2017 Eyes No vision change 01/08/2017 Ears/Nose/Throat/Neck No dental pain 10/2016 Ears/Nose/Throat/Neck No dizziness 2016 Ears/Nose/Throat/Neck No dysphagia 2016 Ears/Nose/Throat/Neck No headache 2016 Ears/Nose/Throat/Neck No hearing loss 10/2016 Ears/Nose/Throat/Neck No nasal allergies 01/08/2017 Ears/Nose/Throat/Neck No sore throat 10/2016 Ears/Nose/Throat/Neck No postnasal drip 01/08/2017 Ears/Nose/Throat/Neck No sinus congestion 01/08/2017 Cardiovascular No chest pain/pressure 10/2016 Cardiovascular No dyspnea 01/08/2017 Cardiovascular edema 01/08/2017 Cardiovascular No exercise intolerance Cardiovascular No near-syncope/dizziness 01/08/2017 Respiratory No chest tightness 2016 Respiratory No cigarette smoking 2016 Respiratory No cough 01/08/2017 Respiratory No dyspnea 01/08/2017 Respiratory No pedal edema 01/08/2017 Respiratory No snoring 01/08/2017 Respiratory No wheezing 01/08/2017 Gastrointestinal No hemorrhoids 2016 Gastrointestinal No abdominal pain 2016 Gastrointestinal No constipation 2016 Gastrointestinal No diarrhea 01/08/2017 Gastrointestinal No gastroesophageal reflux 01/08/2017 Gastrointestinal No melena 01/08/2017 Gastrointestinal No nausea 01/08/2017 Gastrointestinal No vomiting 01/08/2017 Musculoskeletal stiffness 01/08/2017 Musculoskeletal arthralgia(s) 01/08/2017 Musculoskeletal back pain 01/08/2017 Musculoskeletal muscle weakness 2016 Musculoskeletal neck pain 01/08/2017 Dermatologic No rash 01/08/2017 Dermatologic No scar 01/08/2017 Neurologic neck pain 01/08/2017 Psychiatric No anxiety 01/08/2017 Psychiatric No depression 01/08/2017 Constitutional No recent illness 2016 Constitutional No anorexia 12/08/2016 Constitutional No night sweats 2016 Constitutional No chills 12/08/2016 Constitutional No diaphoresis 12/08/2016 Constitutional fatigue 12/08/2016 Constitutional No fever 12/08/2016 Constitutional No insomnia 12/08/2016 Constitutional No malaise 12/08/2016 Eyes No blindness 12/08/2016 Eyes No vision change 12/08/2016 Ears/Nose/Throat/Neck No dental pain 10/2016 Ears/Nose/Throat/Neck No dizziness 2016 Ears/Nose/Throat/Neck No dysphagia 2016 Ears/Nose/Throat/Neck No headache 2016 Ears/Nose/Throat/Neck No hearing loss 10/2016 Ears/Nose/Throat/Neck No nasal allergies 12/08/2016 Ears/Nose/Throat/Neck No sore throat 10/2016 Ears/Nose/Throat/Neck No postnasal drip 12/08/2016 Ears/Nose/Throat/Neck No sinus congestion 12/08/2016 Cardiovascular No chest pain/pressure 10/2016 Cardiovascular No dyspnea 12/08/2016 Cardiovascular edema 12/08/2016 Cardiovascular No exercise intolerance Cardiovascular No near-syncope/dizziness 12/08/2016 Respiratory No chest tightness 2016 Respiratory No cigarette smoking 2016 Respiratory No cough 12/08/2016 Respiratory No dyspnea 12/08/2016 Respiratory No pedal edema 12/08/2016 Respiratory No snoring 12/08/2016 Respiratory No wheezing 12/08/2016 Gastrointestinal No hemorrhoids 2016 Gastrointestinal No abdominal pain 2016 Gastrointestinal No constipation 2016 Gastrointestinal No diarrhea 12/08/2016 Gastrointestinal No gastroesophageal reflux 12/08/2016 Gastrointestinal No melena 12/08/2016 Gastrointestinal No nausea 12/08/2016 Gastrointestinal No vomiting 12/08/2016 Musculoskeletal stiffness 12/08/2016 Musculoskeletal arthralgia(s) 12/08/2016 Musculoskeletal back pain 12/08/2016 Musculoskeletal muscle weakness 2016 Musculoskeletal neck pain 12/08/2016 Dermatologic No rash 12/08/2016 Dermatologic No scar 12/08/2016 Psychiatric No anxiety 12/08/2016 Psychiatric No depression 12/08/2016 Neurologic neck pain 12/08/2016 Constitutional No recent illness 2016 Constitutional No anorexia 11/17/2016 Constitutional No night sweats 2016 Constitutional No chills 11/17/2016 Constitutional No diaphoresis 11/17/2016 Constitutional No fatigue 11/17/2016 Constitutional No fever 11/17/2016 Constitutional No insomnia 11/17/2016 Constitutional No malaise 11/17/2016 Eyes No blindness 11/17/2016 Eyes No vision change 11/17/2016 Ears/Nose/Throat/Neck No dental pain Ears/Nose/Throat/Neck No dizziness 2016 Ears/Nose/Throat/Neck No dysphagia 2016 Ears/Nose/Throat/Neck No headache 2016 Ears/Nose/Throat/Neck No hearing loss Ears/Nose/Throat/Neck No nasal allergies 11/17/2016 Ears/Nose/Throat/Neck No sore throat Ears/Nose/Throat/Neck No postnasal drip 11/17/2016 Ears/Nose/Throat/Neck No sinus congestion 11/17/2016 Cardiovascular No chest pain/pressure Cardiovascular No dyspnea 11/17/2016 Cardiovascular No edema 11/17/2016 Cardiovascular No exercise intolerance Cardiovascular No near-syncope/dizziness 11/17/2016 Respiratory No chest tightness 2016 Respiratory No cigarette smoking 2016 Respiratory No cough 11/17/2016 Respiratory No dyspnea 11/17/2016 Respiratory No pedal edema 11/17/2016 Respiratory No snoring 11/17/2016 Respiratory No wheezing 11/17/2016 Gastrointestinal No hemorrhoids 2016 Gastrointestinal No abdominal pain 2016 Gastrointestinal No constipation 2016 Gastrointestinal No diarrhea 11/17/2016 Gastrointestinal No gastroesophageal reflux 11/17/2016 Gastrointestinal No melena 11/17/2016 Gastrointestinal No nausea 11/17/2016 Gastrointestinal No vomiting 11/17/2016 Genitourinary/Nephrology No dysuria 11/17 Genitourinary/Nephrology No nocturia Genitourinary/Nephrology No urinary incontinence 11/17/2016 Musculoskeletal stiffness 11/17/2016 Musculoskeletal arthralgia(s) 11/17/2016 Musculoskeletal back pain 11/17/2016 Musculoskeletal muscle weakness 2016 Musculoskeletal neck pain 11/17/2016 Dermatologic No rash 11/17/2016 Dermatologic No scar 11/17/2016 Neurologic neck pain 11/17/2016 Psychiatric No anxiety 11/17/2016 Psychiatric No depression 11/17/2016 Constitutional No recent illness 2016 Constitutional No chills 11/10/2016 Constitutional No diaphoresis 11/10/2016 Constitutional No fever 11/10/2016 Constitutional No insomnia 11/10/2016 Constitutional No malaise 11/10/2016 Eyes No eye erythema 11/10/2016 Eyes No vision change 11/10/2016 Ears/Nose/Throat/Neck No postnasal drip 11/10/2016 Cardiovascular No chest pain/pressure 12/2016 Cardiovascular No dyspnea 11/10/2016 Respiratory No cough 11/10/2016 Respiratory No dyspnea 11/10/2016 Gastrointestinal No abdominal pain 2016 Gastrointestinal No constipation 2016 Gastrointestinal No diarrhea 11/10/2016 Gastrointestinal No nausea 11/10/2016 Gastrointestinal No vomiting 11/10/2016 Genitourinary/Nephrology nocturia 2016 Genitourinary/Nephrology No urinary incontinence 11/10/2016 Musculoskeletal stiffness 11/10/2016 Musculoskeletal arthralgia(s) 11/10/2016 Musculoskeletal back pain 11/10/2016 Musculoskeletal muscle weakness 2016 Musculoskeletal neck pain 11/10/2016 Dermatologic No rash 11/10/2016 Dermatologic No scar 11/10/2016 Neurologic neck pain 11/10/2016 Constitutional fatigue 11/10/2016 Ears/Nose/Throat/Neck No nasal allergies 11/10/2016 Ears/Nose/Throat/Neck No nasal discharge 11/10/2016 Respiratory No chest congestion 2016 Genitourinary/Nephrology No dysuria 11/10 Genitourinary/Nephrology urinary frequency 11/10/2016 Constitutional No recent illness 2016 Constitutional No anorexia 11/05/2016 Constitutional No night sweats 2016 Constitutional No chills 11/05/2016 Constitutional No diaphoresis 11/05/2016 Constitutional No fatigue 11/05/2016 Constitutional No fever 11/05/2016 Constitutional No insomnia 11/05/2016 Constitutional No malaise 11/05/2016 Eyes No blindness 11/05/2016 Eyes No vision change 11/05/2016 Ears/Nose/Throat/Neck No dental pain 07/2016 Ears/Nose/Throat/Neck No dizziness 2016 Ears/Nose/Throat/Neck No dysphagia 2016 Ears/Nose/Throat/Neck No headache 2016 Ears/Nose/Throat/Neck No hearing loss 07/2016 Ears/Nose/Throat/Neck No nasal allergies 11/05/2016 Ears/Nose/Throat/Neck No sore throat 07/2016 Ears/Nose/Throat/Neck No postnasal drip 11/05/2016 Ears/Nose/Throat/Neck No sinus congestion 11/05/2016 Cardiovascular No chest pain/pressure 07/2016 Cardiovascular No dyspnea 11/05/2016 Cardiovascular No edema 11/05/2016 Cardiovascular No exercise intolerance Cardiovascular No near-syncope/dizziness 11/05/2016 Respiratory No chest tightness 2016 Respiratory No cigarette smoking 2016 Respiratory No cough 11/05/2016 Respiratory No dyspnea 11/05/2016 Respiratory No pedal edema 11/05/2016 Respiratory No snoring 11/05/2016 Respiratory No wheezing 11/05/2016 Gastrointestinal No hemorrhoids 2016 Gastrointestinal No abdominal pain 2016 Gastrointestinal No constipation 2016 Gastrointestinal No diarrhea 11/05/2016 Gastrointestinal No gastroesophageal reflux 11/05/2016 Gastrointestinal No melena 11/05/2016 Gastrointestinal No nausea 11/05/2016 Gastrointestinal No vomiting 11/05/2016 Genitourinary/Nephrology No dysuria 11/05 Genitourinary/Nephrology No nocturia 07/2016 Genitourinary/Nephrology No urinary incontinence 11/05/2016 Musculoskeletal stiffness 11/05/2016 Musculoskeletal arthralgia(s) 11/05/2016 Musculoskeletal back pain 11/05/2016 Musculoskeletal muscle weakness 2016 Musculoskeletal neck pain 11/05/2016 Dermatologic No rash 11/05/2016 Dermatologic No scar 11/05/2016 Neurologic neck pain 11/05/2016 Psychiatric No anxiety 11/05/2016 Psychiatric No depression 11/05/2016 Constitutional No recent illness 2016 Constitutional No night sweats 2016 Constitutional No chills 10/07/2016 Constitutional No diaphoresis 10/07/2016 Constitutional fatigue 10/07/2016 Constitutional No fever 10/07/2016 Constitutional malaise 10/07/2016 Ears/Nose/Throat/Neck No dental pain 09/2016 Ears/Nose/Throat/Neck No dizziness 2016 Ears/Nose/Throat/Neck No dysphagia 2016 Ears/Nose/Throat/Neck No headache 2016 Ears/Nose/Throat/Neck No hearing loss 09/2016 Ears/Nose/Throat/Neck No nasal allergies 10/07/2016 Ears/Nose/Throat/Neck No sore throat 09/2016 Ears/Nose/Throat/Neck No postnasal drip 10/07/2016 Ears/Nose/Throat/Neck No sinus congestion 10/07/2016 Cardiovascular No chest pain/pressure 09/2016 Cardiovascular No dyspnea 10/07/2016 Cardiovascular No edema 10/07/2016 Cardiovascular No exercise intolerance Cardiovascular No near-syncope/dizziness 10/07/2016 Respiratory No chest tightness 2016 Respiratory No cigarette smoking 2016 Respiratory No cough 10/07/2016 Respiratory No dyspnea 10/07/2016 Respiratory No pedal edema 10/07/2016 Respiratory No snoring 10/07/2016 Respiratory No wheezing 10/07/2016 Gastrointestinal No hemorrhoids 2016 Gastrointestinal No abdominal pain 2016 Gastrointestinal No constipation 2016 Gastrointestinal No diarrhea 10/07/2016 Gastrointestinal No gastroesophageal reflux 10/07/2016 Gastrointestinal No melena 10/07/2016 Gastrointestinal No nausea 10/07/2016 Gastrointestinal No vomiting 10/07/2016 Musculoskeletal stiffness 10/07/2016 Musculoskeletal arthralgia(s) 10/07/2016 Musculoskeletal back pain 10/07/2016 Musculoskeletal muscle weakness 2016 Musculoskeletal neck pain 10/07/2016 Dermatologic No scar 10/07/2016 Neurologic neck pain 10/07/2016 Psychiatric No anxiety 10/07/2016 Psychiatric No depression 10/07/2016 Constitutional No recent illness 2016 Constitutional No anorexia 10/02/2016 Constitutional No night sweats 2016 Constitutional No chills 10/02/2016 Constitutional No diaphoresis 10/02/2016 Constitutional No fatigue 10/02/2016 Constitutional No fever 10/02/2016 Constitutional No insomnia 10/02/2016 Constitutional No malaise 10/02/2016 Constitutional No weight loss 10/02/2016 Constitutional No weight gain 10/02/2016 Musculoskeletal joint complaint 2016 Constitutional No recent illness 2016 Constitutional No anorexia 09/12/2016 Constitutional No night sweats 2016 Constitutional No chills 09/12/2016 Constitutional No diaphoresis 09/12/2016 Constitutional fatigue 09/12/2016 Constitutional No fever 09/12/2016 Constitutional No insomnia 09/12/2016 Constitutional No malaise 09/12/2016 Constitutional No weight loss 09/12/2016 Constitutional No weight gain 09/12/2016 Musculoskeletal joint complaint 2016 Musculoskeletal sciatica 09/12/2016 Musculoskeletal back pain 09/12/2016 Constitutional recent illness 09/08/2016 Constitutional No night sweats 2016 Constitutional No chills 09/08/2016 Constitutional No diaphoresis 09/08/2016 Constitutional fatigue 09/08/2016 Constitutional No fever 09/08/2016 Constitutional malaise 09/08/2016 Ears/Nose/Throat/Neck No dental pain 11/2016 Ears/Nose/Throat/Neck No dizziness 2016 Ears/Nose/Throat/Neck No dysphagia 2016 Ears/Nose/Throat/Neck No headache 2016 Ears/Nose/Throat/Neck No hearing loss 11/2016 Ears/Nose/Throat/Neck No nasal allergies 09/08/2016 Ears/Nose/Throat/Neck No sore throat 11/2016 Ears/Nose/Throat/Neck No postnasal drip 09/08/2016 Ears/Nose/Throat/Neck No sinus congestion 09/08/2016 Cardiovascular No chest pain/pressure 11/2016 Cardiovascular No dyspnea 09/08/2016 Cardiovascular No edema 09/08/2016 Cardiovascular No exercise intolerance Cardiovascular No near-syncope/dizziness 09/08/2016 Respiratory No chest tightness 2016 Respiratory No cigarette smoking 2016 Respiratory No cough 09/08/2016 Respiratory No dyspnea 09/08/2016 Respiratory No pedal edema 09/08/2016 Respiratory No snoring 09/08/2016 Respiratory No wheezing 09/08/2016 Gastrointestinal No hemorrhoids 2016 Gastrointestinal No abdominal pain 2016 Gastrointestinal No constipation 2016 Gastrointestinal No diarrhea 09/08/2016 Gastrointestinal No gastroesophageal reflux 09/08/2016 Gastrointestinal No melena 09/08/2016 Gastrointestinal No nausea 09/08/2016 Gastrointestinal No vomiting 09/08/2016 Musculoskeletal stiffness 09/08/2016 Musculoskeletal arthralgia(s) 09/08/2016 Musculoskeletal back pain 09/08/2016 Musculoskeletal muscle weakness 2016 Musculoskeletal neck pain 09/08/2016 Dermatologic No scar 09/08/2016 Neurologic neck pain 09/08/2016 Psychiatric No anxiety 09/08/2016 Psychiatric No depression 09/08/2016 Musculoskeletal shoulder pain 09/08/2016 Constitutional No recent illness 2016 Constitutional No night sweats 2016 Constitutional No chills 08/26/2016 Constitutional No diaphoresis 08/26/2016 Constitutional fatigue 08/26/2016 Constitutional No fever 08/26/2016 Constitutional malaise 08/26/2016 Ears/Nose/Throat/Neck No dental pain Ears/Nose/Throat/Neck No dizziness 2016 Ears/Nose/Throat/Neck No dysphagia 2016 Ears/Nose/Throat/Neck No headache 2016 Ears/Nose/Throat/Neck No hearing loss Ears/Nose/Throat/Neck No nasal allergies 08/26/2016 Ears/Nose/Throat/Neck No sore throat Ears/Nose/Throat/Neck No postnasal drip 08/26/2016 Ears/Nose/Throat/Neck No sinus congestion 08/26/2016 Cardiovascular No chest pain/pressure Cardiovascular No dyspnea 08/26/2016 Cardiovascular No edema 08/26/2016 Cardiovascular No exercise intolerance Cardiovascular No near-syncope/dizziness 08/26/2016 Respiratory No chest tightness 2016 Respiratory No cigarette smoking 2016 Respiratory No cough 08/26/2016 Respiratory No dyspnea 08/26/2016 Respiratory No pedal edema 08/26/2016 Respiratory No snoring 08/26/2016 Respiratory No wheezing 08/26/2016 Gastrointestinal No hemorrhoids 2016 Gastrointestinal No abdominal pain 2016 Gastrointestinal No constipation 2016 Gastrointestinal No diarrhea 08/26/2016 Gastrointestinal No gastroesophageal reflux 08/26/2016 Gastrointestinal No melena 08/26/2016 Gastrointestinal No nausea 08/26/2016 Gastrointestinal No vomiting 08/26/2016 Musculoskeletal stiffness 08/26/2016 Musculoskeletal arthralgia(s) 08/26/2016 Musculoskeletal back pain 08/26/2016 Musculoskeletal muscle weakness 2016 Musculoskeletal neck pain 08/26/2016 Dermatologic No scar 08/26/2016 Neurologic neck pain 08/26/2016 Psychiatric No anxiety 08/26/2016 Psychiatric No depression 08/26/2016 Constitutional No recent illness 2016 Constitutional No anorexia 08/18/2016 Constitutional No night sweats 2016 Constitutional No chills 08/18/2016 Constitutional No diaphoresis 08/18/2016 Constitutional No fatigue 08/18/2016 Constitutional No fever 08/18/2016 Constitutional No insomnia 08/18/2016 Constitutional No malaise 08/18/2016 Eyes No blindness 08/18/2016 Eyes No vision change 08/18/2016 Ears/Nose/Throat/Neck No dental pain Ears/Nose/Throat/Neck No dizziness 2016 Ears/Nose/Throat/Neck No dysphagia 2016 Ears/Nose/Throat/Neck No headache 2016 Ears/Nose/Throat/Neck No hearing loss Ears/Nose/Throat/Neck No nasal allergies 08/18/2016 Ears/Nose/Throat/Neck No sore throat Ears/Nose/Throat/Neck No postnasal drip 08/18/2016 Ears/Nose/Throat/Neck No sinus congestion 08/18/2016 Cardiovascular No chest pain/pressure Cardiovascular No dyspnea 08/18/2016 Cardiovascular No edema 08/18/2016 Cardiovascular No exercise intolerance Cardiovascular No near-syncope/dizziness 08/18/2016 Respiratory No chest tightness 2016 Respiratory No cigarette smoking 2016 Respiratory No cough 08/18/2016 Respiratory No dyspnea 08/18/2016 Respiratory No pedal edema 08/18/2016 Respiratory No snoring 08/18/2016 Respiratory No wheezing 08/18/2016 Gastrointestinal No hemorrhoids 2016 Gastrointestinal No abdominal pain 2016 Gastrointestinal No constipation 2016 Gastrointestinal No diarrhea 08/18/2016 Gastrointestinal No gastroesophageal reflux 08/18/2016 Gastrointestinal No melena 08/18/2016 Gastrointestinal No nausea 08/18/2016 Gastrointestinal No vomiting 08/18/2016 Genitourinary/Nephrology No dysuria 08/18 Genitourinary/Nephrology No nocturia Genitourinary/Nephrology No urinary incontinence 08/18/2016 Musculoskeletal stiffness 08/18/2016 Musculoskeletal arthralgia(s) 08/18/2016 Musculoskeletal back pain 08/18/2016 Musculoskeletal muscle weakness 2016 Musculoskeletal neck pain 08/18/2016 Dermatologic No rash 08/18/2016 Dermatologic No scar 08/18/2016 Neurologic neck pain 08/18/2016 Psychiatric No anxiety 08/18/2016 Psychiatric No depression 08/18/2016 Constitutional No recent illness 2016 Constitutional No fever 07/30/2016 Eyes No blindness 07/30/2016 Ears/Nose/Throat/Neck No nasal allergies 07/30/2016 Ears/Nose/Throat/Neck No nasal discharge 07/30/2016 Cardiovascular No chest pain/pressure Respiratory No dyspnea 07/30/2016 Genitourinary/Nephrology nocturia 2016 Neurologic No alteration of consciousness 07/30/2016 Neurologic No mental status change 2016 Constitutional No anorexia 07/30/2016 Constitutional No night sweats 2016 Constitutional No chills 07/30/2016 Constitutional No diaphoresis 07/30/2016 Constitutional No fatigue 07/30/2016 Constitutional No insomnia 07/30/2016 Constitutional No malaise 07/30/2016 Eyes No vision change 07/30/2016 Ears/Nose/Throat/Neck No dental pain Ears/Nose/Throat/Neck No dizziness 2016 Ears/Nose/Throat/Neck No dysphagia 2016 Ears/Nose/Throat/Neck No headache 2016 Ears/Nose/Throat/Neck No hearing loss Ears/Nose/Throat/Neck No sore throat Ears/Nose/Throat/Neck No postnasal drip 07/30/2016 Ears/Nose/Throat/Neck No sinus congestion 07/30/2016 Cardiovascular No edema 07/30/2016 Cardiovascular No exercise intolerance Cardiovascular No near-syncope/dizziness 07/30/2016 Respiratory No chest tightness 2016 Respiratory No cigarette smoking 2016 Respiratory No cough 07/30/2016 Respiratory No pedal edema 07/30/2016 Respiratory No snoring 07/30/2016 Respiratory No wheezing 07/30/2016 Gastrointestinal No hemorrhoids 2016 Gastrointestinal No abdominal pain 2016 Gastrointestinal No constipation 2016 Gastrointestinal No diarrhea 07/30/2016 Gastrointestinal No gastroesophageal reflux 07/30/2016 Gastrointestinal No melena 07/30/2016 Gastrointestinal No nausea 07/30/2016 Gastrointestinal No vomiting 07/30/2016 Genitourinary/Nephrology No dysuria 07/30 Genitourinary/Nephrology No urinary incontinence 07/30/2016 Musculoskeletal stiffness 07/30/2016 Musculoskeletal arthralgia(s) 07/30/2016 Musculoskeletal back pain 07/30/2016 Musculoskeletal muscle weakness 2016 Musculoskeletal neck pain 07/30/2016 Dermatologic No rash 07/30/2016 Dermatologic No scar 07/30/2016 Neurologic neck pain 07/30/2016 Psychiatric No anxiety 07/30/2016 Psychiatric No depression 07/30/2016 Constitutional No recent illness 2016 Constitutional No fever 07/14/2016 Eyes No eye erythema 07/14/2016 Ears/Nose/Throat/Neck No nasal discharge 07/14/2016 Ears/Nose/Throat/Neck No nasal allergies 07/14/2016 Cardiovascular No chest pain/pressure Respiratory No dyspnea 07/14/2016 Genitourinary/Nephrology nocturia 2016 Musculoskeletal shoulder pain 07/14/2016 Dermatologic ecchymosis 07/14/2016 Neurologic No alteration of consciousness 07/14/2016 Neurologic No mental status change 2016 Constitutional No recent illness 2016 Constitutional No chills 07/04/2016 Constitutional No fever 07/04/2016 Eyes No eye erythema 07/04/2016 Ears/Nose/Throat/Neck No nasal discharge 07/04/2016 Cardiovascular No chest pain/pressure 06/2016 Respiratory No dyspnea 07/04/2016 Respiratory No cough 07/04/2016 Musculoskeletal shoulder pain 07/04/2016 Dermatologic ecchymosis 07/04/2016 Neurologic No alteration of consciousness 07/04/2016 Neurologic No mental status change 2016 Constitutional No recent illness 2016 Constitutional No anorexia 06/26/2016 Constitutional No night sweats 2016 Constitutional No chills 06/26/2016 Constitutional No diaphoresis 06/26/2016 Constitutional No fatigue 06/26/2016 Constitutional No fever 06/26/2016 Constitutional No insomnia 06/26/2016 Constitutional No malaise 06/26/2016 Eyes No blindness 06/26/2016 Eyes No vision change 06/26/2016 Ears/Nose/Throat/Neck No dental pain Ears/Nose/Throat/Neck No dizziness 2016 Ears/Nose/Throat/Neck No dysphagia 2016 Ears/Nose/Throat/Neck No headache 2016 Ears/Nose/Throat/Neck No hearing loss Ears/Nose/Throat/Neck No nasal allergies 06/26/2016 Ears/Nose/Throat/Neck No sore throat Ears/Nose/Throat/Neck No postnasal drip 06/26/2016 Ears/Nose/Throat/Neck No sinus congestion 06/26/2016 Cardiovascular No chest pain/pressure Cardiovascular No dyspnea 06/26/2016 Cardiovascular No edema 06/26/2016 Cardiovascular No exercise intolerance Cardiovascular No near-syncope/dizziness 06/26/2016 Respiratory No chest tightness 2016 Respiratory No cigarette smoking 2016 Respiratory No cough 06/26/2016 Respiratory No dyspnea 06/26/2016 Respiratory No pedal edema 06/26/2016 Respiratory No snoring 06/26/2016 Respiratory No wheezing 06/26/2016 Gastrointestinal No hemorrhoids 2016 Gastrointestinal No abdominal pain 2016 Gastrointestinal No constipation 2016 Gastrointestinal No diarrhea 06/26/2016 Gastrointestinal No gastroesophageal reflux 06/26/2016 Gastrointestinal No melena 06/26/2016 Gastrointestinal No nausea 06/26/2016 Gastrointestinal No vomiting 06/26/2016 Genitourinary/Nephrology No dysuria 06/26 Genitourinary/Nephrology No nocturia Genitourinary/Nephrology No urinary incontinence 06/26/2016 Musculoskeletal stiffness 06/26/2016 Musculoskeletal arthralgia(s) 06/26/2016 Musculoskeletal back pain 06/26/2016 Musculoskeletal muscle weakness 2016 Musculoskeletal neck pain 06/26/2016 Dermatologic No rash 06/26/2016 Dermatologic No scar 06/26/2016 Neurologic neck pain 06/26/2016 Psychiatric No anxiety 06/26/2016 Psychiatric No depression 06/26/2016 Constitutional No recent illness 2016 Constitutional No anorexia 05/28/2016 Constitutional No night sweats 2016 Constitutional No chills 05/28/2016 Constitutional No diaphoresis 05/28/2016 Constitutional No fatigue 05/28/2016 Constitutional No fever 05/28/2016 Constitutional No insomnia 05/28/2016 Constitutional No malaise 05/28/2016 Eyes No blindness 05/28/2016 Eyes No vision change 05/28/2016 Ears/Nose/Throat/Neck No dental pain Ears/Nose/Throat/Neck No dizziness 2016 Ears/Nose/Throat/Neck No dysphagia 2016 Ears/Nose/Throat/Neck No headache 2016 Ears/Nose/Throat/Neck No hearing loss Ears/Nose/Throat/Neck No nasal allergies 05/28/2016 Ears/Nose/Throat/Neck No sore throat Ears/Nose/Throat/Neck No postnasal drip 05/28/2016 Ears/Nose/Throat/Neck No sinus congestion 05/28/2016 Cardiovascular No chest pain/pressure Cardiovascular No dyspnea 05/28/2016 Cardiovascular No edema 05/28/2016 Cardiovascular No exercise intolerance Cardiovascular No near-syncope/dizziness 05/28/2016 Respiratory No chest tightness 2016 Respiratory No cigarette smoking 2016 Respiratory No cough 05/28/2016 Respiratory No dyspnea 05/28/2016 Respiratory No pedal edema 05/28/2016 Respiratory No snoring 05/28/2016 Respiratory No wheezing 05/28/2016 Gastrointestinal No hemorrhoids 2016 Gastrointestinal No abdominal pain 2016 Gastrointestinal No constipation 2016 Gastrointestinal No diarrhea 05/28/2016 Gastrointestinal No gastroesophageal reflux 05/28/2016 Gastrointestinal No melena 05/28/2016 Gastrointestinal No nausea 05/28/2016 Gastrointestinal No vomiting 05/28/2016 Genitourinary/Nephrology No dysuria 05/28 Genitourinary/Nephrology No nocturia Genitourinary/Nephrology No urinary incontinence 05/28/2016 Musculoskeletal stiffness 05/28/2016 Musculoskeletal arthralgia(s) 05/28/2016 Musculoskeletal back pain 05/28/2016 Musculoskeletal muscle weakness 2016 Musculoskeletal neck pain 05/28/2016 Dermatologic No rash 05/28/2016 Dermatologic No scar 05/28/2016 Neurologic neck pain 05/28/2016 Psychiatric No anxiety 05/28/2016 Psychiatric No depression 05/28/2016 Constitutional No recent illness 2016 Constitutional No anorexia 03/18/2016 Constitutional No night sweats 2016 Constitutional No chills 03/18/2016 Constitutional No diaphoresis 03/18/2016 Constitutional fatigue 03/18/2016 Constitutional No fever 03/18/2016 Constitutional No insomnia 03/18/2016 Constitutional No malaise 03/18/2016 Eyes No blindness 03/18/2016 Eyes No vision change 03/18/2016 Ears/Nose/Throat/Neck No dental pain Ears/Nose/Throat/Neck No dizziness 2016 Ears/Nose/Throat/Neck No dysphagia 2016 Ears/Nose/Throat/Neck No headache 2016 Ears/Nose/Throat/Neck No hearing loss Ears/Nose/Throat/Neck No nasal allergies 03/18/2016 Ears/Nose/Throat/Neck No sore throat Ears/Nose/Throat/Neck No postnasal drip 03/18/2016 Ears/Nose/Throat/Neck No sinus congestion 03/18/2016 Cardiovascular No chest pain/pressure Cardiovascular No dyspnea 03/18/2016 Cardiovascular No edema 03/18/2016 Cardiovascular No exercise intolerance Cardiovascular No near-syncope/dizziness 03/18/2016 Respiratory No chest tightness 2016 Respiratory No cigarette smoking 2016 Respiratory No cough 03/18/2016 Respiratory No dyspnea 03/18/2016 Respiratory No pedal edema 03/18/2016 Respiratory No snoring 03/18/2016 Respiratory No wheezing 03/18/2016 Gastrointestinal No hemorrhoids 2016 Gastrointestinal No abdominal pain 2016 Gastrointestinal No constipation 2016 Gastrointestinal No diarrhea 03/18/2016 Gastrointestinal No gastroesophageal reflux 03/18/2016 Gastrointestinal No melena 03/18/2016 Gastrointestinal No nausea 03/18/2016 Gastrointestinal No vomiting 03/18/2016 Genitourinary/Nephrology No dysuria 03/18 Genitourinary/Nephrology No nocturia Genitourinary/Nephrology No urinary incontinence 03/18/2016 Musculoskeletal stiffness 03/18/2016 Musculoskeletal arthralgia(s) 03/18/2016 Musculoskeletal back pain 03/18/2016 Musculoskeletal muscle weakness 2016 Musculoskeletal neck pain 03/18/2016 Dermatologic No rash 03/18/2016 Dermatologic No scar 03/18/2016 Neurologic neck pain 03/18/2016 Psychiatric No anxiety 03/18/2016 Psychiatric No depression 03/18/2016 Constitutional No recent illness 2015 Constitutional No anorexia 01/29/2016 Constitutional No night sweats 2015 Constitutional No chills 01/29/2016 Constitutional No diaphoresis 01/29/2016 Constitutional fatigue 01/29/2016 Constitutional No fever 01/29/2016 Constitutional No insomnia 01/29/2016 Constitutional No malaise 01/29/2016 Eyes No blindness 01/29/2016 Eyes No vision change 01/29/2016 Ears/Nose/Throat/Neck No dental pain Ears/Nose/Throat/Neck No dizziness 2015 Ears/Nose/Throat/Neck No dysphagia 2015 Ears/Nose/Throat/Neck No headache 2015 Ears/Nose/Throat/Neck No hearing loss Ears/Nose/Throat/Neck No nasal allergies 01/29/2016 Ears/Nose/Throat/Neck No sore throat Ears/Nose/Throat/Neck No postnasal drip 01/29/2016 Ears/Nose/Throat/Neck No sinus congestion 01/29/2016 Cardiovascular No chest pain/pressure Cardiovascular No dyspnea 01/29/2016 Cardiovascular No edema 01/29/2016 Cardiovascular No exercise intolerance Cardiovascular No near-syncope/dizziness 01/29/2016 Respiratory No chest tightness 2015 Respiratory No cigarette smoking 2015 Respiratory No cough 01/29/2016 Respiratory No dyspnea 01/29/2016 Respiratory No pedal edema 01/29/2016 Respiratory No snoring 01/29/2016 Respiratory No wheezing 01/29/2016 Gastrointestinal No hemorrhoids 2015 Gastrointestinal No abdominal pain 2015 Gastrointestinal No constipation 2015 Gastrointestinal No diarrhea 01/29/2016 Gastrointestinal No gastroesophageal reflux 01/29/2016 Gastrointestinal No melena 01/29/2016 Gastrointestinal No nausea 01/29/2016 Gastrointestinal No vomiting 01/29/2016 Genitourinary/Nephrology No dysuria 01/28 Genitourinary/Nephrology No nocturia Genitourinary/Nephrology No urinary incontinence 01/29/2016 Musculoskeletal stiffness 01/29/2016 Musculoskeletal arthralgia(s) 01/29/2016 Musculoskeletal back pain 01/29/2016 Musculoskeletal muscle weakness 2015 Musculoskeletal neck pain 01/29/2016 Dermatologic No rash 01/29/2016 Dermatologic No scar 01/29/2016 Neurologic neck pain 01/29/2016 Psychiatric No anxiety 01/29/2016 Psychiatric No depression 01/29/2016 Constitutional No recent illness 2015 Constitutional No anorexia 01/01/2016 Constitutional No night sweats 2015 Constitutional No chills 01/01/2016 Constitutional No diaphoresis 01/01/2016 Constitutional No fatigue 01/01/2016 Constitutional No fever 01/01/2016 Constitutional No insomnia 01/01/2016 Constitutional No malaise 01/01/2016 Eyes No blindness 01/01/2016 Eyes No vision change 01/01/2016 Ears/Nose/Throat/Neck No dental pain 03/2015 Ears/Nose/Throat/Neck No dizziness 2015 Ears/Nose/Throat/Neck No dysphagia 2015 Ears/Nose/Throat/Neck No headache 2015 Ears/Nose/Throat/Neck No hearing loss 03/2015 Ears/Nose/Throat/Neck No nasal allergies 01/01/2016 Ears/Nose/Throat/Neck No sore throat 03/2015 Ears/Nose/Throat/Neck No postnasal drip 01/01/2016 Ears/Nose/Throat/Neck No sinus congestion 01/01/2016 Cardiovascular No chest pain/pressure 03/2015 Cardiovascular No dyspnea 01/01/2016 Cardiovascular No edema 01/01/2016 Cardiovascular No exercise intolerance Cardiovascular No near-syncope/dizziness 01/01/2016 Respiratory No chest tightness 2015 Respiratory No cigarette smoking 2015 Respiratory No cough 01/01/2016 Respiratory No dyspnea 01/01/2016 Respiratory No pedal edema 01/01/2016 Respiratory No snoring 01/01/2016 Respiratory No wheezing 01/01/2016 Gastrointestinal No hemorrhoids 2015 Gastrointestinal No abdominal pain 2015 Gastrointestinal No constipation 2015 Gastrointestinal No diarrhea 01/01/2016 Gastrointestinal No gastroesophageal reflux 01/01/2016 Gastrointestinal No melena 01/01/2016 Gastrointestinal No nausea 01/01/2016 Gastrointestinal No vomiting 01/01/2016 Genitourinary/Nephrology No dysuria 12/31 Genitourinary/Nephrology No nocturia 03/2015 Genitourinary/Nephrology No urinary incontinence 01/01/2016 Musculoskeletal stiffness 01/01/2016 Musculoskeletal arthralgia(s) 01/01/2016 Musculoskeletal back pain 01/01/2016 Musculoskeletal muscle weakness 2015 Musculoskeletal neck pain 01/01/2016 Dermatologic No rash 01/01/2016 Dermatologic No scar 01/01/2016 Neurologic neck pain 01/01/2016 Psychiatric No anxiety 01/01/2016 Psychiatric No depression 01/01/2016 Constitutional No recent illness 2015 Constitutional No anorexia 11/19/2015 Constitutional No night sweats 2015 Constitutional No chills 11/19/2015 Constitutional No diaphoresis 11/19/2015 Constitutional No fatigue 11/19/2015 Constitutional No fever 11/19/2015 Constitutional No insomnia 11/19/2015 Constitutional No malaise 11/19/2015 Eyes No blindness 11/19/2015 Eyes No vision change 11/19/2015 Ears/Nose/Throat/Neck No dental pain Ears/Nose/Throat/Neck No dizziness 2015 Ears/Nose/Throat/Neck No dysphagia 2015 Ears/Nose/Throat/Neck No headache 2015 Ears/Nose/Throat/Neck No hearing loss Ears/Nose/Throat/Neck No nasal allergies 11/19/2015 Ears/Nose/Throat/Neck No sore throat Ears/Nose/Throat/Neck No postnasal drip 11/19/2015 Ears/Nose/Throat/Neck No sinus congestion 11/19/2015 Cardiovascular No chest pain/pressure Cardiovascular No dyspnea 11/19/2015 Cardiovascular No edema 11/19/2015 Cardiovascular No exercise intolerance Cardiovascular No near-syncope/dizziness 11/19/2015 Respiratory No chest tightness 2015 Respiratory No cigarette smoking 2015 Respiratory No cough 11/19/2015 Respiratory No dyspnea 11/19/2015 Respiratory No pedal edema 11/19/2015 Respiratory No snoring 11/19/2015 Respiratory No wheezing 11/19/2015 Gastrointestinal No hemorrhoids 2015 Gastrointestinal No abdominal pain 2015 Gastrointestinal No constipation 2015 Gastrointestinal No diarrhea 11/19/2015 Gastrointestinal No gastroesophageal reflux 11/19/2015 Gastrointestinal No melena 11/19/2015 Gastrointestinal No nausea 11/19/2015 Gastrointestinal No vomiting 11/19/2015 Genitourinary/Nephrology No dysuria 11/18 Genitourinary/Nephrology No nocturia Genitourinary/Nephrology No urinary incontinence 11/19/2015 Musculoskeletal stiffness 11/19/2015 Musculoskeletal arthralgia(s) 11/19/2015 Musculoskeletal back pain 11/19/2015 Musculoskeletal muscle weakness 2015 Musculoskeletal neck pain 11/19/2015 Dermatologic No rash 11/19/2015 Dermatologic No scar 11/19/2015 Neurologic neck pain 11/19/2015 Psychiatric No anxiety 11/19/2015 Psychiatric No depression 11/19/2015 Constitutional No recent illness 2015 Constitutional No night sweats 2015 Constitutional No anorexia 11/01/2015 Constitutional No chills 11/01/2015 Constitutional diaphoresis 11/01/2015 Constitutional No fatigue 11/01/2015 Constitutional No fever 11/01/2015 Constitutional No insomnia 11/01/2015 Constitutional No malaise 11/01/2015 Constitutional No weight loss 11/01/2015 Constitutional No weight gain 11/01/2015 Dermatologic sores 11/01/2015 Constitutional No recent illness 2015 Constitutional No anorexia 09/04/2015 Constitutional No night sweats 2015 Constitutional No chills 09/04/2015 Constitutional No diaphoresis 09/04/2015 Constitutional No fatigue 09/04/2015 Constitutional No fever 09/04/2015 Constitutional No insomnia 09/04/2015 Constitutional No malaise 09/04/2015 Eyes No blindness 09/04/2015 Eyes No vision change 09/04/2015 Ears/Nose/Throat/Neck No dental pain 07/2015 Ears/Nose/Throat/Neck No dizziness 2015 Ears/Nose/Throat/Neck No dysphagia 2015 Ears/Nose/Throat/Neck No headache 2015 Ears/Nose/Throat/Neck No hearing loss 07/2015 Ears/Nose/Throat/Neck No nasal allergies 09/04/2015 Ears/Nose/Throat/Neck No sore throat 07/2015 Ears/Nose/Throat/Neck No postnasal drip 09/04/2015 Ears/Nose/Throat/Neck No sinus congestion 09/04/2015 Cardiovascular No chest pain/pressure 07/2015 Cardiovascular No dyspnea 09/04/2015 Cardiovascular No edema 09/04/2015 Cardiovascular No exercise intolerance Cardiovascular No near-syncope/dizziness 09/04/2015 Respiratory No chest tightness 2015 Respiratory No cigarette smoking 2015 Respiratory No cough 09/04/2015 Respiratory No dyspnea 09/04/2015 Respiratory No pedal edema 09/04/2015 Respiratory No snoring 09/04/2015 Respiratory No wheezing 09/04/2015 Gastrointestinal No hemorrhoids 2015 Gastrointestinal No abdominal pain 2015 Gastrointestinal No constipation 2015 Gastrointestinal No diarrhea 09/04/2015 Gastrointestinal No gastroesophageal reflux 09/04/2015 Gastrointestinal No melena 09/04/2015 Gastrointestinal No nausea 09/04/2015 Gastrointestinal No vomiting 09/04/2015 Genitourinary/Nephrology No dysuria 09/03 Genitourinary/Nephrology No nocturia 07/2015 Genitourinary/Nephrology No urinary incontinence 09/04/2015 Musculoskeletal stiffness 09/04/2015 Musculoskeletal arthralgia(s) 09/04/2015 Musculoskeletal back pain 09/04/2015 Musculoskeletal muscle weakness 2015 Musculoskeletal neck pain 09/04/2015 Dermatologic No rash 09/04/2015 Dermatologic No scar 09/04/2015 Neurologic neck pain 09/04/2015 Psychiatric No anxiety 09/04/2015 Psychiatric No depression 09/04/2015 Constitutional No recent illness 2015 Constitutional No chills 2015 Constitutional No diaphoresis 2015 Constitutional No fatigue 2015 Constitutional No fever 2015 Constitutional No insomnia 2015 Constitutional No malaise 2015 Eyes No blindness 2015 Eyes No vision change 2015 Ears/Nose/Throat/Neck No nasal allergies 2015 Ears/Nose/Throat/Neck No nasal discharge 2015 Ears/Nose/Throat/Neck No postnasal drip 2015 Ears/Nose/Throat/Neck No sinus congestion 2015 Ears/Nose/Throat/Neck No sore throat 11/2015 Cardiovascular No chest pain/pressure 11/2015 Cardiovascular No dyspnea 2015 Respiratory No chest congestion 2015 Respiratory No cough 2015 Respiratory No dyspnea 2015 Gastrointestinal No constipation 2015 Gastrointestinal No diarrhea 2015 Gastrointestinal No nausea 2015 Gastrointestinal No vomiting 2015 Dermatologic ecchymosis 2015 Dermatologic No scar 2015 Neurologic No alteration of consciousness 2015 Psychiatric No anxiety 2015 Psychiatric No depression 2015 Constitutional No recent illness 2015 Constitutional No chills 07/18/2015 Constitutional No diaphoresis 07/18/2015 Constitutional No fatigue 07/18/2015 Constitutional No fever 07/18/2015 Constitutional No insomnia 07/18/2015 Constitutional No malaise 07/18/2015 Eyes No eye erythema 07/18/2015 Eyes No vision change 07/18/2015 Ears/Nose/Throat/Neck No nasal allergies 07/18/2015 Ears/Nose/Throat/Neck No sore throat Ears/Nose/Throat/Neck No postnasal drip 07/18/2015 Ears/Nose/Throat/Neck No sinus congestion 07/18/2015 Cardiovascular No chest pain/pressure Cardiovascular No dyspnea 07/18/2015 Respiratory No cough 07/18/2015 Respiratory No dyspnea 07/18/2015 Gastrointestinal No constipation 2015 Gastrointestinal No diarrhea 07/18/2015 Gastrointestinal No nausea 07/18/2015 Gastrointestinal No vomiting 07/18/2015 Dermatologic No scar 07/18/2015 Psychiatric No anxiety 07/18/2015 Psychiatric No depression 07/18/2015 Ears/Nose/Throat/Neck No nasal discharge 07/18/2015 Respiratory No chest congestion 2015 Dermatologic ecchymosis 07/18/2015 Neurologic No alteration of consciousness 07/18/2015 Constitutional No recent illness 2015 Constitutional No anorexia 07/02/2015 Constitutional No night sweats 2015 Constitutional No chills 07/02/2015 Constitutional No diaphoresis 07/02/2015 Constitutional No fatigue 07/02/2015 Constitutional No fever 07/02/2015 Constitutional No insomnia 07/02/2015 Constitutional No malaise 07/02/2015 Eyes No blindness 07/02/2015 Eyes No vision change 07/02/2015 Ears/Nose/Throat/Neck No dental pain 04/2015 Ears/Nose/Throat/Neck No dizziness 2015 Ears/Nose/Throat/Neck No dysphagia 2015 Ears/Nose/Throat/Neck No headache 2015 Ears/Nose/Throat/Neck No hearing loss 04/2015 Ears/Nose/Throat/Neck No nasal allergies 07/02/2015 Ears/Nose/Throat/Neck No sore throat 04/2015 Ears/Nose/Throat/Neck No postnasal drip 07/02/2015 Ears/Nose/Throat/Neck No sinus congestion 07/02/2015 Cardiovascular No chest pain/pressure 04/2015 Cardiovascular No dyspnea 07/02/2015 Cardiovascular No edema 07/02/2015 Cardiovascular No exercise intolerance Cardiovascular No near-syncope/dizziness 07/02/2015 Respiratory No chest tightness 2015 Respiratory No cigarette smoking 2015 Respiratory No cough 07/02/2015 Respiratory No dyspnea 07/02/2015 Respiratory No pedal edema 07/02/2015 Respiratory No snoring 07/02/2015 Respiratory No wheezing 07/02/2015 Gastrointestinal No hemorrhoids 2015 Gastrointestinal No abdominal pain 2015 Gastrointestinal No constipation 2015 Gastrointestinal No diarrhea 07/02/2015 Gastrointestinal No gastroesophageal reflux 07/02/2015 Gastrointestinal No melena 07/02/2015 Gastrointestinal No nausea 07/02/2015 Gastrointestinal No vomiting 07/02/2015 Genitourinary/Nephrology No dysuria 07/01 Genitourinary/Nephrology No nocturia 04/2015 Genitourinary/Nephrology No urinary incontinence 07/02/2015 Musculoskeletal stiffness 07/02/2015 Musculoskeletal arthralgia(s) 07/02/2015 Musculoskeletal back pain 07/02/2015 Musculoskeletal muscle weakness 2015 Musculoskeletal neck pain 07/02/2015 Dermatologic No rash 07/02/2015 Dermatologic No scar 07/02/2015 Neurologic neck pain 07/02/2015 Psychiatric No anxiety 07/02/2015 Psychiatric No depression 07/02/2015 Constitutional No recent illness 2015 Constitutional No anorexia 05/31/2015 Constitutional No night sweats 2015 Constitutional No chills 05/31/2015 Constitutional No diaphoresis 05/31/2015 Constitutional No fatigue 05/31/2015 Constitutional No fever 05/31/2015 Constitutional No insomnia 05/31/2015 Constitutional No malaise 05/31/2015 Cardiovascular No chest pain/pressure Cardiovascular No dyspnea 05/31/2015 Cardiovascular No edema 05/31/2015 Cardiovascular No exercise intolerance Cardiovascular No near-syncope/dizziness 05/31/2015 Respiratory No chest tightness 2015 Respiratory No cigarette smoking 2015 Respiratory No cough 05/31/2015 Respiratory No dyspnea 05/31/2015 Respiratory No pedal edema 05/31/2015 Respiratory No snoring 05/31/2015 Respiratory No wheezing 05/31/2015 Gastrointestinal No hemorrhoids 2015 Gastrointestinal No abdominal pain 2015 Gastrointestinal No constipation 2015 Gastrointestinal No diarrhea 05/31/2015 Gastrointestinal No gastroesophageal reflux 05/31/2015 Gastrointestinal No melena 05/31/2015 Gastrointestinal No nausea 05/31/2015 Gastrointestinal No vomiting 05/31/2015 Musculoskeletal stiffness 05/31/2015 Musculoskeletal arthralgia(s) 05/31/2015 Musculoskeletal back pain 05/31/2015 Musculoskeletal muscle weakness 2015 Musculoskeletal neck pain 05/31/2015 Neurologic neck pain 05/31/2015 Psychiatric No anxiety 05/31/2015 Psychiatric No depression 05/31/2015 Eyes No blindness 05/31/2015 Eyes No vision change 05/31/2015 Ears/Nose/Throat/Neck No dental pain Ears/Nose/Throat/Neck No dizziness 2015 Ears/Nose/Throat/Neck No dysphagia 2015 Ears/Nose/Throat/Neck No headache 2015 Ears/Nose/Throat/Neck No hearing loss Ears/Nose/Throat/Neck No nasal allergies 05/31/2015 Ears/Nose/Throat/Neck No sore throat Ears/Nose/Throat/Neck No postnasal drip 05/31/2015 Ears/Nose/Throat/Neck No sinus congestion 05/31/2015 Genitourinary/Nephrology No dysuria 05/30 Genitourinary/Nephrology No nocturia Genitourinary/Nephrology No urinary incontinence 05/31/2015 Dermatologic No rash 05/31/2015 Dermatologic No scar 05/31/2015 Constitutional No recent illness 2015 Constitutional No anorexia 04/09/2015 Constitutional No night sweats 2015 Constitutional No chills 04/09/2015 Constitutional No diaphoresis 04/09/2015 Constitutional No fatigue 04/09/2015 Constitutional No fever 04/09/2015 Constitutional No insomnia 04/09/2015 Constitutional No malaise 04/09/2015 Cardiovascular No chest pain/pressure 10/2015 Cardiovascular No dyspnea 04/09/2015 Cardiovascular No edema 04/09/2015 Cardiovascular No exercise intolerance Cardiovascular No near-syncope/dizziness 04/09/2015 Respiratory No chest tightness 2015 Respiratory No cigarette smoking 2015 Respiratory No cough 04/09/2015 Respiratory No dyspnea 04/09/2015 Respiratory No pedal edema 04/09/2015 Respiratory No snoring 04/09/2015 Respiratory No wheezing 04/09/2015 Gastrointestinal No hemorrhoids 2015 Gastrointestinal No abdominal pain 2015 Gastrointestinal No constipation 2015 Gastrointestinal No diarrhea 04/09/2015 Gastrointestinal No gastroesophageal reflux 04/09/2015 Gastrointestinal No melena 04/09/2015 Gastrointestinal No nausea 04/09/2015 Gastrointestinal No vomiting 04/09/2015 Musculoskeletal back pain 04/09/2015 Neurologic neck pain 04/09/2015 Psychiatric No anxiety 04/09/2015 Psychiatric No depression 04/09/2015 Musculoskeletal stiffness 04/09/2015 Musculoskeletal arthralgia(s) 04/09/2015 Musculoskeletal neck pain 04/09/2015 Musculoskeletal muscle weakness 2015 Constitutional No recent illness 2014 Constitutional No anorexia 02/08/2015 Constitutional No night sweats 2014 Constitutional No chills 02/08/2015 Constitutional No diaphoresis 02/08/2015 Constitutional No fatigue 02/08/2015 Constitutional No fever 02/08/2015 Constitutional No insomnia 02/08/2015 Constitutional No malaise 02/08/2015 Cardiovascular No chest pain/pressure 11/2014 Cardiovascular No dyspnea 02/08/2015 Cardiovascular No edema 02/08/2015 Cardiovascular No exercise intolerance Cardiovascular No near-syncope/dizziness 02/08/2015 Respiratory No chest tightness 2014 Respiratory No cigarette smoking 2014 Respiratory No cough 02/08/2015 Respiratory No dyspnea 02/08/2015 Respiratory No pedal edema 02/08/2015 Respiratory No snoring 02/08/2015 Respiratory No wheezing 02/08/2015 Gastrointestinal No hemorrhoids 2014 Gastrointestinal No abdominal pain 2014 Gastrointestinal No constipation 2014 Gastrointestinal No diarrhea 02/08/2015 Gastrointestinal No gastroesophageal reflux 02/08/2015 Gastrointestinal No melena 02/08/2015 Gastrointestinal No nausea 02/08/2015 Gastrointestinal No vomiting 02/08/2015 Psychiatric No anxiety 02/08/2015 Psychiatric No depression 02/08/2015 Musculoskeletal back pain 02/08/2015 Neurologic neck pain 02/08/2015 Constitutional No recent illness 2014 Constitutional No anorexia 12/11/2014 Constitutional No night sweats 2014 Constitutional No chills 12/11/2014 Constitutional No diaphoresis 12/11/2014 Constitutional No fatigue 12/11/2014 Constitutional No fever 12/11/2014 Constitutional No insomnia 12/11/2014 Constitutional No malaise 12/11/2014 Cardiovascular No chest pain/pressure 01/2015 Cardiovascular No dyspnea 12/11/2014 Cardiovascular No edema 12/11/2014 Cardiovascular No exercise intolerance Cardiovascular No near-syncope/dizziness 12/11/2014 Respiratory No chest tightness 2014 Respiratory No cigarette smoking 2014 Respiratory No cough 12/11/2014 Respiratory No dyspnea 12/11/2014 Respiratory No pedal edema 12/11/2014 Respiratory No snoring 12/11/2014 Respiratory No wheezing 12/11/2014 Gastrointestinal No hemorrhoids 2014 Gastrointestinal No abdominal pain 2014 Gastrointestinal No constipation 2014 Gastrointestinal No diarrhea 12/11/2014 Gastrointestinal No gastroesophageal reflux 12/11/2014 Gastrointestinal No melena 12/11/2014 Gastrointestinal No nausea 12/11/2014 Gastrointestinal No vomiting 12/11/2014 Psychiatric No anxiety 12/11/2014 Psychiatric No depression 12/11/2014 Constitutional No recent illness 2014 Constitutional No anorexia 11/09/2014 Constitutional No night sweats 2014 Constitutional No chills 11/09/2014 Constitutional No diaphoresis 11/09/2014 Constitutional No fatigue 11/09/2014 Constitutional No fever 11/09/2014 Constitutional No insomnia 11/09/2014 Constitutional No malaise 11/09/2014 Cardiovascular No chest pain/pressure 11/2014 Cardiovascular No dyspnea 11/09/2014 Cardiovascular No edema 11/09/2014 Cardiovascular No exercise intolerance Cardiovascular No near-syncope/dizziness 11/09/2014 Respiratory No chest tightness 2014 Respiratory No cigarette smoking 2014 Respiratory No cough 11/09/2014 Respiratory No dyspnea 11/09/2014 Respiratory No pedal edema 11/09/2014 Respiratory No snoring 11/09/2014 Respiratory No wheezing 11/09/2014 Gastrointestinal No hemorrhoids 2014 Gastrointestinal No abdominal pain 2014 Gastrointestinal No constipation 2014 Gastrointestinal No diarrhea 11/09/2014 Gastrointestinal No gastroesophageal reflux 11/09/2014 Gastrointestinal No melena 11/09/2014 Gastrointestinal No nausea 11/09/2014 Gastrointestinal No vomiting 11/09/2014 Psychiatric No anxiety 11/09/2014 Psychiatric No depression 11/09/2014 Constitutional No recent illness 2014 Constitutional No anorexia 10/23/2014 Constitutional No night sweats 2014 Constitutional No chills 10/23/2014 Constitutional No diaphoresis 10/23/2014 Constitutional No fatigue 10/23/2014 Constitutional No fever 10/23/2014 Constitutional No insomnia 10/23/2014 Constitutional No malaise 10/23/2014 Cardiovascular No chest pain/pressure Cardiovascular No dyspnea 10/23/2014 Cardiovascular No edema 10/23/2014 Cardiovascular No exercise intolerance Cardiovascular No near-syncope/dizziness 10/23/2014 Respiratory No chest tightness 2014 Respiratory No cigarette smoking 2014 Respiratory No cough 10/23/2014 Respiratory No dyspnea 10/23/2014 Respiratory No pedal edema 10/23/2014 Respiratory No snoring 10/23/2014 Respiratory No wheezing 10/23/2014 Gastrointestinal No hemorrhoids 2014 Gastrointestinal No abdominal pain 2014 Gastrointestinal No constipation 2014 Gastrointestinal No diarrhea 10/23/2014 Gastrointestinal No gastroesophageal reflux 10/23/2014 Gastrointestinal No melena 10/23/2014 Gastrointestinal No nausea 10/23/2014 Gastrointestinal No vomiting 10/23/2014 Psychiatric No anxiety 10/23/2014 Psychiatric No depression 10/23/2014 Constitutional No recent illness 2014 Constitutional No anorexia 10/16/2014 Constitutional No night sweats 2014 Constitutional No chills 10/16/2014 Constitutional No diaphoresis 10/16/2014 Constitutional No fatigue 10/16/2014 Constitutional No fever 10/16/2014 Constitutional No insomnia 10/16/2014 Constitutional No malaise 10/16/2014 Psychiatric No anxiety 10/16/2014 Psychiatric No depression 10/16/2014 Respiratory No chest tightness 2014 Respiratory No cigarette smoking 2014 Respiratory No cough 10/16/2014 Respiratory No dyspnea 10/16/2014 Respiratory No pedal edema 10/16/2014 Respiratory No snoring 10/16/2014 Respiratory No wheezing 10/16/2014 Gastrointestinal No hemorrhoids 2014 Gastrointestinal No abdominal pain 2014 Gastrointestinal No constipation 2014 Gastrointestinal No diarrhea 10/16/2014 Gastrointestinal No gastroesophageal reflux 10/16/2014 Gastrointestinal No melena 10/16/2014 Gastrointestinal No nausea 10/16/2014 Gastrointestinal No vomiting 10/16/2014 Cardiovascular No chest pain/pressure Cardiovascular No dyspnea 10/16/2014 Cardiovascular No edema 10/16/2014 Cardiovascular No exercise intolerance Cardiovascular No fatigue 10/16/2014 Cardiovascular No near-syncope/dizziness 10/16/2014 Constitutional No recent illness 2014 Constitutional No anorexia 10/09/2014 Constitutional No night sweats 2014 Constitutional No chills 10/09/2014 Constitutional No diaphoresis 10/09/2014 Constitutional No fatigue 10/09/2014 Constitutional No fever 10/09/2014 Constitutional No malaise 10/09/2014 Constitutional No weight loss 10/09/2014 Constitutional No weight gain 10/09/2014 Constitutional No insomnia 10/09/2014 Constitutional No recent illness 2014 Constitutional No chills 09/14/2014 Constitutional No diaphoresis 09/14/2014 Constitutional No fatigue 09/14/2014 Constitutional No fever 09/14/2014 Constitutional No insomnia 09/14/2014 Constitutional No malaise 09/14/2014 Ears/Nose/Throat/Neck No dizziness 2014 Ears/Nose/Throat/Neck No sore throat Cardiovascular No chest pain/pressure Cardiovascular edema 09/14/2014 Cardiovascular No exercise intolerance Cardiovascular fatigue 09/14/2014 Respiratory No chest congestion 2014 Respiratory No cough 09/14/2014 Gastrointestinal No abdominal pain 2014 Gastrointestinal No constipation 2014 Gastrointestinal No diarrhea 09/14/2014 Gastrointestinal No nausea 09/14/2014 Gastrointestinal No vomiting 09/14/2014 Genitourinary/Nephrology No dysuria 09/14 Genitourinary/Nephrology No nocturia Genitourinary/Nephrology No urinary incontinence 09/14/2014 Musculoskeletal stiffness 09/14/2014 Musculoskeletal No swelling 09/14/2014 Musculoskeletal muscle weakness 2014 Musculoskeletal myalgias 09/14/2014 Dermatologic No rash 09/14/2014 Neurologic No alteration of consciousness 09/14/2014 Neurologic No mental status change 2014 Psychiatric No anxiety 09/14/2014 Psychiatric No depression 09/14/2014 Musculoskeletal neck pain 09/14/2014 Constitutional No recent illness 2014 Constitutional No chills 08/11/2014 Constitutional No diaphoresis 08/11/2014 Constitutional No fatigue 08/11/2014 Constitutional No fever 08/11/2014 Constitutional No insomnia 08/11/2014 Constitutional No malaise 08/11/2014 Ears/Nose/Throat/Neck No dizziness 2014 Ears/Nose/Throat/Neck No sore throat 01/2015 Cardiovascular No chest pain/pressure 01/2015 Cardiovascular edema 08/11/2014 Cardiovascular No exercise intolerance Cardiovascular fatigue 08/11/2014 Respiratory No chest congestion 2014 Respiratory No cough 08/11/2014 Gastrointestinal No abdominal pain 2014 Gastrointestinal No constipation 2014 Gastrointestinal No diarrhea 08/11/2014 Gastrointestinal No nausea 08/11/2014 Gastrointestinal No vomiting 08/11/2014 Genitourinary/Nephrology No dysuria 08/11 Genitourinary/Nephrology No nocturia 01/2015 Genitourinary/Nephrology No urinary incontinence 08/11/2014 Musculoskeletal stiffness 08/11/2014 Musculoskeletal No swelling 08/11/2014 Musculoskeletal muscle weakness 2014 Musculoskeletal myalgias 08/11/2014 Dermatologic No rash 08/11/2014 Neurologic No alteration of consciousness 08/11/2014 Neurologic No mental status change 2014 Psychiatric No anxiety 08/11/2014 Psychiatric No depression 08/11/2014 Constitutional No chills 07/12/2014 Constitutional No diaphoresis 07/12/2014 Constitutional No fatigue 07/12/2014 Constitutional No fever 07/12/2014 Constitutional No insomnia 07/12/2014 Constitutional No malaise 07/12/2014 Constitutional No recent illness 2014 Ears/Nose/Throat/Neck No dizziness 2014 Ears/Nose/Throat/Neck No sore throat Cardiovascular No chest pain/pressure Cardiovascular No edema 07/12/2014 Cardiovascular No exercise intolerance Cardiovascular No fatigue 07/12/2014 Cardiovascular No palpitations 2014 Cardiovascular No syncope 07/12/2014 Respiratory No chest congestion 2014 Respiratory No cough 07/12/2014 Gastrointestinal No abdominal pain 2014 Gastrointestinal No constipation 2014 Gastrointestinal No diarrhea 07/12/2014 Gastrointestinal No nausea 07/12/2014 Gastrointestinal No vomiting 07/12/2014 Dermatologic No rash 07/12/2014 Neurologic No alteration of consciousness 07/12/2014 Neurologic No mental status change 2014 Psychiatric No anxiety 07/12/2014 Psychiatric No depression 07/12/2014 Musculoskeletal stiffness 07/12/2014 Musculoskeletal No swelling 07/12/2014 Musculoskeletal muscle weakness 2014 Musculoskeletal myalgias 07/12/2014 Genitourinary/Nephrology No dysuria 07/12 Genitourinary/Nephrology No nocturia Genitourinary/Nephrology No urinary incontinence 07/12/2014 Physical Exam Exam Name System Name Item Name Status Result Effective Dates Notes Full Exam - Orthopedics MS: right upper extremity insp & palp - RUE Shoulder: swelling 04/02/2017 tender to palpation - significant swelling with bruising going from shoulder down to mid bicep - 60mL of blood removed anteriorly from the right shoulder with 20 guage needle - 1.5mL of kenalog and 1mL of lidocaine injected post drainage Full Exam - General 1994 Constitutional general appearance Development: well developed 03/12/2017 None Full Exam - General 1994 Constitutional general appearance Development: appears stated age 0103/12/2017 None Full Exam - General 1994 Constitutional general appearance Hygiene/Attention to Grooming: good hygiene 03/12/2017 None Full Exam - General 1994 Eyes conjunctiva /eyelids Overall: conjunctiva clear 03/12/2017 None Full Exam - General 1994 Eyes conjunctiva /eyelids Overall: cornea clear 03/12/2017 None Full Exam - General 1994 Eyes conjunctiva /eyelids Overall: eyelids normal 03/12/2017 None Full Exam - General 1994 Eyes pupils and irises Overall: pupils equal, round, reactive to light and accomodation 03/12/2017 None Full Exam - General 1994 Ears/Nose/Throat otoscopic exam Overall: tympanic membranes clear 03/12/2017 None Full Exam - General 1994 Ears/Nose/Throat otoscopic exam External auditory canal: complete cerumen impaction 03/12/2017 None Full Exam - General 1994 Ears/Nose/Throat lips/teeth/gingiva Overall: benign lips 03/12/2017 None Full Exam - General 1994 Ears/Nose/Throat lips/teeth/gingiva Overall: normal dentition 03/12/2017 None Full Exam - General 1994 Ears/Nose/Throat oral cavity/pharynx/larynx Overall: oral mucosa clear 03/12/2017 None Full Exam - General 1994 Ears/Nose/Throat oral cavity/pharynx/larynx Overall: oropharyngeal mucosa clear 03/12/2017 None Full Exam - General 1994 Ears/Nose/Throat oral cavity/pharynx/larynx Overall: hypopharynx benign 03/12/2017 None Full Exam - General 1994 Ears/Nose/Throat oral cavity/pharynx/larynx Overall: no masses 03/12/2017 None Full Exam - General 1994 Respiratory auscultation Overall: breath sounds clear bilaterally 03/12/2017 None Full Exam - General 1994 Respiratory respiratory effort/rhythm Overall: no retractions 03/12/2017 None Full Exam - General 1994 Respiratory respiratory effort/rhythm Overall: normal rate 03/12/2017 None Full Exam - General 1994 Cardiovascular extremities Overall: no clubbing 03/12/2017 None Full Exam - General 1994 Cardiovascular extremities Edema present: pitting 03/12/2017 None Full Exam - General 1994 Cardiovascular auscultation of heart Overall: regular rate 03/12/2017 None Full Exam - General 1994 Cardiovascular auscultation of heart Overall: normal heart sounds 03/12/2017 None Full Exam - General 1994 Abdomen abdominal exam Overall: no tenderness 03/12/2017 None Full Exam - General 1994 Abdomen abdominal exam Overall: normal bowel sounds 03/12/2017 None Full Exam - General 1994 Lymphatic neck nodes Overall: anterior cervical chain benign 03/12/2017 None Full Exam - General 1994 Lymphatic neck nodes Overall: posterior cervical chain benign 03/12/2017 None Full Exam - General 1994 Musculoskeletal upper extremity Inspection - shoulder: swelling 03/12/2017 left greater than right Full Exam - General 1994 Musculoskeletal gait and station Overall: normal gait 03/12/2017 None Full Exam - General 1994 Musculoskeletal gait and station Overall: normal station 03/12/2017 None Full Exam - General 1994 Musculoskeletal head and neck Overall: head atraumatic 03/12/2017 None Full Exam - General 1994 Musculoskeletal head and neck Overall: TMJ benign 03/12/2017 None Full Exam - General 1994 Integument inspection of skin Pigmentation: ecchymosis 03/12/2017 on left arm, erythema of face from right ot left cheek Full Exam - General 1994 Neurologic cranial nerves Overall: crainial nerves 2 - 12 grossly intact 03/12/2017 None Full Exam - General 1994 Psychiatric orientation/consciousness Overall: oriented to person, place and time 03/12/2017 None Full Exam - General 1994 Psychiatric mood and affect Overall: normal mood and affect 03/12/2017 None Full Exam - General 1994 Cardiovascular extremities Edema present: severity 1+ - 4 +: 2+ on arms and hands and 3 + on bilateral lower legs - greater on left than right 03/12/2017 None Full Exam - Orthopedics MS: right upper extremity insp & palp - RUE Shoulder: swelling 02/06/2017 tender to palpation - significant swelling with bruising going from shoulder down to mid bicep - 55mL of blood removed anteriorly from the right shoulder with 20 guage needle - 3mL of lidocaine injected post drainage Full Exam - General 1994 Constitutional general appearance Development: well developed 01/08/2017 None Full Exam - General 1994 Constitutional general appearance Development: appears stated age 1101/08/2017 None Full Exam - General 1994 Constitutional general appearance Hygiene/Attention to Grooming: good hygiene 01/08/2017 None Full Exam - General 1994 Eyes conjunctiva /eyelids Overall: conjunctiva clear 01/08/2017 None Full Exam - General 1994 Eyes conjunctiva /eyelids Overall: cornea clear 01/08/2017 None Full Exam - General 1994 Eyes conjunctiva /eyelids Overall: eyelids normal 01/08/2017 None Full Exam - General 1994 Eyes pupils and irises Overall: pupils equal, round, reactive to light and accomodation 01/08/2017 None Full Exam - General 1994 Ears/Nose/Throat otoscopic exam Overall: tympanic membranes clear 01/08/2017 None Full Exam - General 1994 Ears/Nose/Throat otoscopic exam External auditory canal: complete cerumen impaction 01/08/2017 None Full Exam - General 1994 Ears/Nose/Throat lips/teeth/gingiva Overall: benign lips 01/08/2017 None Full Exam - General 1994 Ears/Nose/Throat lips/teeth/gingiva Overall: normal dentition 01/08/2017 None Full Exam - General 1994 Ears/Nose/Throat oral cavity/pharynx/larynx Overall: oral mucosa clear 01/08/2017 None Full Exam - General 1994 Ears/Nose/Throat oral cavity/pharynx/larynx Overall: oropharyngeal mucosa clear 01/08/2017 None Full Exam - General 1994 Ears/Nose/Throat oral cavity/pharynx/larynx Overall: hypopharynx benign 01/08/2017 None Full Exam - General 1994 Ears/Nose/Throat oral cavity/pharynx/larynx Overall: no masses 01/08/2017 None Full Exam - General 1994 Respiratory auscultation Overall: breath sounds clear bilaterally 01/08/2017 None Full Exam - General 1994 Respiratory respiratory effort/rhythm Overall: no retractions 01/08/2017 None Full Exam - General 1994 Respiratory respiratory effort/rhythm Overall: normal rate 01/08/2017 None Full Exam - General 1994 Cardiovascular extremities Overall: no clubbing 01/08/2017 None Full Exam - General 1994 Cardiovascular extremities Edema present: pitting 01/08/2017 None Full Exam - General 1994 Cardiovascular extremities Edema present: severity 1+ - 4 +: 2+ 01/08/2017 None Full Exam - General 1994 Cardiovascular auscultation of heart Overall: regular rate 01/08/2017 None Full Exam - General 1994 Cardiovascular auscultation of heart Overall: normal heart sounds 01/08/2017 None Full Exam - General 1994 Abdomen abdominal exam Overall: no tenderness 01/08/2017 None Full Exam - General 1994 Abdomen abdominal exam Overall: normal bowel sounds 01/08/2017 None Full Exam - General 1994 Lymphatic neck nodes Overall: anterior cervical chain benign 01/08/2017 None Full Exam - General 1994 Lymphatic neck nodes Overall: posterior cervical chain benign 01/08/2017 None Full Exam - General 1994 Musculoskeletal upper extremity Inspection - shoulder: swelling 01/08/2017 left greater than right Full Exam - General 1994 Musculoskeletal gait and station Overall: normal gait 01/08/2017 None Full Exam - General 1994 Musculoskeletal gait and station Overall: normal station 01/08/2017 None Full Exam - General 1994 Musculoskeletal head and neck Overall: head atraumatic 01/08/2017 None Full Exam - General 1994 Musculoskeletal head and neck Overall: TMJ benign 01/08/2017 None Full Exam - General 1994 Neurologic cranial nerves Overall: crainial nerves 2 - 12 grossly intact 01/08/2017 None Full Exam - General 1994 Psychiatric orientation/consciousness Overall: oriented to person, place and time 01/08/2017 None Full Exam - General 1994 Psychiatric mood and affect Overall: normal mood and affect 01/08/2017 None Full Exam - General 1994 Integument inspection of skin Pigmentation: ecchymosis 01/08/2017 on left arm, erythema of face from right ot left cheek Full Exam - General 1994 Constitutional general appearance Development: well developed 12/08/2016 None Full Exam - General 1994 Constitutional general appearance Development: appears stated age 1012/08/2016 None Full Exam - General 1994 Constitutional general appearance Hygiene/Attention to Grooming: good hygiene 12/08/2016 None Full Exam - General 1994 Eyes conjunctiva /eyelids Overall: conjunctiva clear 12/08/2016 None Full Exam - General 1994 Eyes conjunctiva /eyelids Overall: cornea clear 12/08/2016 None Full Exam - General 1994 Eyes conjunctiva /eyelids Overall: eyelids normal 12/08/2016 None Full Exam - General 1994 Eyes pupils and irises Overall: pupils equal, round, reactive to light and accomodation 12/08/2016 None Full Exam - General 1994 Ears/Nose/Throat otoscopic exam Overall: tympanic membranes clear 12/08/2016 None Full Exam - General 1994 Ears/Nose/Throat otoscopic exam External auditory canal: complete cerumen impaction 12/08/2016 None Full Exam - General 1994 Ears/Nose/Throat lips/teeth/gingiva Overall: benign lips 12/08/2016 None Full Exam - General 1994 Ears/Nose/Throat lips/teeth/gingiva Overall: normal dentition 12/08/2016 None Full Exam - General 1994 Ears/Nose/Throat oral cavity/pharynx/larynx Overall: oral mucosa clear 12/08/2016 None Full Exam - General 1994 Ears/Nose/Throat oral cavity/pharynx/larynx Overall: oropharyngeal mucosa clear 12/08/2016 None Full Exam - General 1994 Ears/Nose/Throat oral cavity/pharynx/larynx Overall: hypopharynx benign 12/08/2016 None Full Exam - General 1994 Ears/Nose/Throat oral cavity/pharynx/larynx Overall: no masses 12/08/2016 None Full Exam - General 1994 Respiratory auscultation Overall: breath sounds clear bilaterally 12/08/2016 None Full Exam - General 1994 Respiratory respiratory effort/rhythm Overall: no retractions 12/08/2016 None Full Exam - General 1994 Respiratory respiratory effort/rhythm Overall: normal rate 12/08/2016 None Full Exam - General 1994 Cardiovascular extremities Overall: no clubbing 12/08/2016 None Full Exam - General 1994 Cardiovascular extremities Edema present: pitting 12/08/2016 None Full Exam - General 1994 Cardiovascular extremities Edema present: severity 1+ - 4 +: 2+ 12/08/2016 None Full Exam - General 1994 Cardiovascular auscultation of heart Overall: regular rate 12/08/2016 None Full Exam - General 1994 Cardiovascular auscultation of heart Overall: normal heart sounds 12/08/2016 None Full Exam - General 1994 Abdomen abdominal exam Overall: no tenderness 12/08/2016 None Full Exam - General 1994 Abdomen abdominal exam Overall: normal bowel sounds 12/08/2016 None Full Exam - General 1994 Lymphatic neck nodes Overall: anterior cervical chain benign 12/08/2016 None Full Exam - General 1994 Lymphatic neck nodes Overall: posterior cervical chain benign 12/08/2016 None Full Exam - General 1994 Musculoskeletal upper extremity Inspection - shoulder: swelling 12/08/2016 left greater than right Full Exam - General 1994 Musculoskeletal gait and station Overall: normal gait 12/08/2016 None Full Exam - General 1994 Musculoskeletal gait and station Overall: normal station 12/08/2016 None Full Exam - General 1994 Musculoskeletal head and neck Overall: head atraumatic 12/08/2016 None Full Exam - General 1994 Musculoskeletal head and neck Overall: TMJ benign 12/08/2016 None Full Exam - General 1994 Neurologic cranial nerves Overall: crainial nerves 2 - 12 grossly intact 12/08/2016 None Full Exam - General 1994 Psychiatric orientation/consciousness Overall: oriented to person, place and time 12/08/2016 None Full Exam - General 1994 Psychiatric mood and affect Overall: normal mood and affect 12/08/2016 None Full Exam - General 1994 Integument inspection of skin Pigmentation: ecchymosis 12/08/2016 on right shoulder, right upper back and down arm on right to hand. Full Exam - General 1994 Constitutional general appearance Development: well developed 11/17/2016 None Full Exam - General 1994 Constitutional general appearance Development: appears stated age 0911/17/2016 None Full Exam - General 1994 Constitutional general appearance Hygiene/Attention to Grooming: good hygiene 11/17/2016 None Full Exam - General 1994 Eyes conjunctiva /eyelids Overall: conjunctiva clear 11/17/2016 None Full Exam - General 1994 Eyes conjunctiva /eyelids Overall: cornea clear 11/17/2016 None Full Exam - General 1994 Eyes conjunctiva /eyelids Overall: eyelids normal 11/17/2016 None Full Exam - General 1994 Eyes pupils and irises Overall: pupils equal, round, reactive to light and accomodation 11/17/2016 None Full Exam - General 1994 Ears/Nose/Throat otoscopic exam Overall: tympanic membranes clear 11/17/2016 None Full Exam - General 1994 Ears/Nose/Throat otoscopic exam External auditory canal: complete cerumen impaction 11/17/2016 None Full Exam - General 1994 Ears/Nose/Throat lips/teeth/gingiva Overall: benign lips 11/17/2016 None Full Exam - General 1994 Ears/Nose/Throat lips/teeth/gingiva Overall: normal dentition 11/17/2016 None Full Exam - General 1994 Ears/Nose/Throat oral cavity/pharynx/larynx Overall: oral mucosa clear 11/17/2016 None Full Exam - General 1994 Ears/Nose/Throat oral cavity/pharynx/larynx Overall: oropharyngeal mucosa clear 11/17/2016 None Full Exam - General 1994 Ears/Nose/Throat oral cavity/pharynx/larynx Overall: hypopharynx benign 11/17/2016 None Full Exam - General 1994 Ears/Nose/Throat oral cavity/pharynx/larynx Overall: no masses 11/17/2016 None Full Exam - General 1994 Respiratory auscultation Overall: breath sounds clear bilaterally 11/17/2016 None Full Exam - General 1994 Respiratory respiratory effort/rhythm Overall: no retractions 11/17/2016 None Full Exam - General 1994 Respiratory respiratory effort/rhythm Overall: normal rate 11/17/2016 None Full Exam - General 1994 Cardiovascular extremities Overall: no clubbing 11/17/2016 None Full Exam - General 1994 Cardiovascular extremities Edema present: pitting 11/17/2016 None Full Exam - General 1994 Cardiovascular extremities Edema present: severity 1+ - 4 +: 2+ 11/17/2016 None Full Exam - General 1994 Cardiovascular auscultation of heart Overall: regular rate 11/17/2016 None Full Exam - General 1994 Cardiovascular auscultation of heart Overall: normal heart sounds 11/17/2016 None Full Exam - General 1994 Abdomen abdominal exam Overall: no tenderness 11/17/2016 None Full Exam - General 1994 Abdomen abdominal exam Overall: normal bowel sounds 11/17/2016 None Full Exam - General 1994 Lymphatic neck nodes Overall: anterior cervical chain benign 11/17/2016 None Full Exam - General 1994 Lymphatic neck nodes Overall: posterior cervical chain benign 11/17/2016 None Full Exam - General 1994 Musculoskeletal upper extremity Inspection - shoulder: swelling 11/17/2016 left greater than right Full Exam - General 1994 Musculoskeletal gait and station Overall: normal gait 11/17/2016 None Full Exam - General 1994 Musculoskeletal gait and station Overall: normal station 11/17/2016 None Full Exam - General 1994 Musculoskeletal head and neck Overall: head atraumatic 11/17/2016 None Full Exam - General 1994 Musculoskeletal head and neck Overall: TMJ benign 11/17/2016 None Full Exam - General 1994 Neurologic cranial nerves Overall: crainial nerves 2 - 12 grossly intact 11/17/2016 None Full Exam - General 1994 Psychiatric orientation/consciousness Overall: oriented to person, place and time 11/17/2016 None Full Exam - General 1994 Psychiatric mood and affect Overall: normal mood and affect 11/17/2016 None Full Exam - General 1994 Constitutional general appearance Hygiene/Attention to Grooming: good hygiene 11/10/2016 None Full Exam - General 1994 Eyes conjunctiva /eyelids Overall: conjunctiva clear 11/10/2016 None Full Exam - General 1994 Eyes conjunctiva /eyelids Overall: eyelids normal 11/10/2016 None Full Exam - General 1994 Eyes pupils and irises Overall: pupils equal, round, reactive to light and accomodation 11/10/2016 None Full Exam - General 1994 Ears/Nose/Throat lips/teeth/gingiva Overall: benign lips 11/10/2016 None Full Exam - General 1994 Ears/Nose/Throat oral cavity/pharynx/larynx Overall: oral mucosa clear 11/10/2016 None Full Exam - General 1994 Ears/Nose/Throat oral cavity/pharynx/larynx Overall: oropharyngeal mucosa clear 11/10/2016 None Full Exam - General 1994 Respiratory auscultation Overall: breath sounds clear bilaterally 11/10/2016 None Full Exam - General 1994 Respiratory respiratory effort/rhythm Overall: no retractions 11/10/2016 None Full Exam - General 1994 Respiratory respiratory effort/rhythm Overall: normal rate 11/10/2016 None Full Exam - General 1995 Cardiovascular extremities Overall: no clubbing 11/10/2016 None Full Exam - General 1994 Cardiovascular extremities Edema present: pitting 11/10/2016 None Full Exam - General 1994 Cardiovascular extremities Edema present: severity 1+ - 4 +: 2+ 11/10/2016 None Full Exam - General 1994 Cardiovascular auscultation of heart Overall: regular rate 11/10/2016 None Full Exam - General 1994 Cardiovascular auscultation of heart Overall: normal heart sounds 11/10/2016 None Full Exam - General 1994 Abdomen abdominal exam Overall: normal bowel sounds 11/10/2016 None Full Exam - General 1994 Musculoskeletal upper extremity Inspection - shoulder: swelling 11/10/2016 right greater than left Full Exam - General 1994 Musculoskeletal gait and station Overall: normal gait 11/10/2016 None Full Exam - General 1994 Musculoskeletal gait and station Overall: normal station 11/10/2016 None Full Exam - General 1994 Musculoskeletal head and neck Overall: head atraumatic 11/10/2016 Pt chronically wears neck brace Full Exam - General 1994 Neurologic cranial nerves Overall: crainial nerves 2 - 12 grossly intact 11/10/2016 None Full Exam - General 1994 Psychiatric orientation/consciousness Overall: oriented to person, place and time 11/10/2016 None Full Exam - General 1994 Psychiatric mood and affect Overall: normal mood and affect 11/10/2016 None Full Exam - General 1994 Constitutional general appearance Overall: in no acute distress 11/10/2016 None Full Exam - General 1994 Constitutional general appearance Overall: well developed 11/10/2016 None Full Exam - General 1994 Constitutional general appearance Overall: well nourished 11/10/2016 None Full Exam - General 1994 Constitutional general appearance Development: well developed 11/05/2016 None Full Exam - General 1994 Constitutional general appearance Development: appears stated age 0911/05/2016 None Full Exam - General 1994 Constitutional general appearance Hygiene/Attention to Grooming: good hygiene 11/05/2016 None Full Exam - General 1994 Eyes conjunctiva /eyelids Overall: conjunctiva clear 11/05/2016 None Full Exam - General 1994 Eyes conjunctiva /eyelids Overall: cornea clear 11/05/2016 None Full Exam - General 1994 Eyes conjunctiva /eyelids Overall: eyelids normal 11/05/2016 None Full Exam - General 1994 Eyes pupils and irises Overall: pupils equal, round, reactive to light and accomodation 11/05/2016 None Full Exam - General 1994 Ears/Nose/Throat otoscopic exam Overall: tympanic membranes clear 11/05/2016 None Full Exam - General 1994 Ears/Nose/Throat otoscopic exam External auditory canal: complete cerumen impaction 11/05/2016 None Full Exam - General 1995 Ears/Nose/Throat lips/teeth/gingiva Overall: benign lips 11/05/2016 None Full Exam - General 1994 Ears/Nose/Throat lips/teeth/gingiva Overall: normal dentition 11/05/2016 None Full Exam - General 1994 Ears/Nose/Throat oral cavity/pharynx/larynx Overall: oral mucosa clear 11/05/2016 None Full Exam - General 1994 Ears/Nose/Throat oral cavity/pharynx/larynx Overall: oropharyngeal mucosa clear 11/05/2016 None Full Exam - General 1994 Ears/Nose/Throat oral cavity/pharynx/larynx Overall: hypopharynx benign 11/05/2016 None Full Exam - General 1994 Ears/Nose/Throat oral cavity/pharynx/larynx Overall: no masses 11/05/2016 None Full Exam - General 1994 Respiratory auscultation Overall: breath sounds clear bilaterally 11/05/2016 None Full Exam - General 1994 Respiratory respiratory effort/rhythm Overall: no retractions 11/05/2016 None Full Exam - General 1994 Respiratory respiratory effort/rhythm Overall: normal rate 11/05/2016 None Full Exam - General 1994 Cardiovascular extremities Overall: no clubbing 11/05/2016 None Full Exam - General 1994 Cardiovascular extremities Edema present: pitting 11/05/2016 None Full Exam - General 1994 Cardiovascular extremities Edema present: severity 1+ - 4 +: 2+ 11/05/2016 None Full Exam - General 1994 Cardiovascular auscultation of heart Overall: regular rate 11/05/2016 None Full Exam - General 1994 Cardiovascular auscultation of heart Overall: normal heart sounds 11/05/2016 None Full Exam - General 1994 Abdomen abdominal exam Overall: no tenderness 11/05/2016 None Full Exam - General 1994 Abdomen abdominal exam Overall: normal bowel sounds 11/05/2016 None Full Exam - General 1994 Lymphatic neck nodes Overall: anterior cervical chain benign 11/05/2016 None Full Exam - General 1994 Lymphatic neck nodes Overall: posterior cervical chain benign 11/05/2016 None Full Exam - General 1994 Musculoskeletal gait and station Overall: normal gait 11/05/2016 None Full Exam - General 1994 Musculoskeletal gait and station Overall: normal station 11/05/2016 None Full Exam - General 1994 Musculoskeletal head and neck Overall: head atraumatic 11/05/2016 None Full Exam - General 1994 Musculoskeletal head and neck Overall: TMJ benign 11/05/2016 None Full Exam - General 1994 Neurologic cranial nerves Overall: crainial nerves 2 - 12 grossly intact 11/05/2016 None Full Exam - General 1994 Psychiatric orientation/consciousness Overall: oriented to person, place and time 11/05/2016 None Full Exam - General 1994 Psychiatric mood and affect Overall: normal mood and affect 11/05/2016 None Full Exam - General 1994 Musculoskeletal upper extremity Inspection - shoulder: swelling 11/05/2016 left greater than right Full Exam - General 1994 Constitutional general appearance Development: well developed 10/07/2016 None Full Exam - General 1994 Constitutional general appearance Development: appears stated age 0810/07/2016 None Full Exam - General 1994 Constitutional general appearance Hygiene/Attention to Grooming: good hygiene 10/07/2016 None Full Exam - General 1994 Eyes pupils and irises Overall: pupils equal, round, reactive to light and accomodation 10/07/2016 None Full Exam - General 1994 Respiratory auscultation Overall: breath sounds clear bilaterally 10/07/2016 None Full Exam - General 1994 Respiratory respiratory effort/rhythm Overall: no retractions 10/07/2016 None Full Exam - General 1994 Respiratory respiratory effort/rhythm Overall: normal rate 10/07/2016 None Full Exam - General 1994 Cardiovascular extremities Overall: no clubbing 10/07/2016 None Full Exam - General 1994 Cardiovascular extremities Edema present: pitting 10/07/2016 2+ Full Exam - General 1994 Cardiovascular auscultation of heart Overall: regular rate 10/07/2016 None Full Exam - General 1994 Cardiovascular auscultation of heart Overall: normal heart sounds 10/07/2016 None Full Exam - General 1994 Abdomen abdominal exam Overall: no tenderness 10/07/2016 None Full Exam - General 1994 Abdomen abdominal exam Overall: normal bowel sounds 10/07/2016 None Full Exam - General 1994 Psychiatric orientation/consciousness Overall: oriented to person, place and time 10/07/2016 None Full Exam - General 1994 Psychiatric mood and affect Overall: normal mood and affect 10/07/2016 None Full Exam - General 1994 Constitutional general appearance Overall: well nourished 10/07/2016 None Full Exam - General 1994 Musculoskeletal upper extremity Inspection - shoulder: swelling 10/07/2016 None Full Exam - General 1994 Musculoskeletal upper extremity ROM - shoulder: decreased external rotation 10/07/2016 None Full Exam - General 1994 Musculoskeletal upper extremity ROM - shoulder: decreased internal rotation 10/07/2016 None Full Exam - General 1994 Musculoskeletal upper extremity ROM - shoulder: decreased shoulder flexion 10/07/2016 None Full Exam - General 1994 Musculoskeletal upper extremity ROM - shoulder: decreased shoulder extension 10/07/2016 None Full Exam - General 1994 Musculoskeletal upper extremity ROM - shoulder: pain with external rotation 10/07/2016 None Full Exam - General 1994 Musculoskeletal upper extremity ROM - shoulder: pain with internal rotation 10/07/2016 None Full Exam - General 1994 Musculoskeletal upper extremity ROM - shoulder: pain with shoulder flexion 10/07/2016 None Full Exam - General 1994 Musculoskeletal upper extremity ROM - shoulder: pain with shoulder extension 10/07/2016 None Full Exam - General 1994 Musculoskeletal upper extremity Inspection - shoulder: swelling 10/02/2016 removal 4cc bloody drainage Full Exam - General 1994 Constitutional general appearance Overall: well developed 10/02/2016 None Full Exam - General 1994 Constitutional general appearance Overall: well nourished 10/02/2016 None Full Exam - General 1994 Psychiatric orientation/consciousness Overall: oriented to person, place and time 10/02/2016 None Full Exam - Orthopedics Constitutional general appearance Overall: well nourished 09/12/2016 None Full Exam - Orthopedics Constitutional general appearance Overall: well developed 09/12/2016 None Full Exam - Orthopedics Constitutional general appearance Overall: in no acute distress 09/12/2016 None Full Exam - Orthopedics Constitutional general appearance Assistive Device: walker 09/12/2016 None Full Exam - Orthopedics Psychiatric orientation/consciousness Overall: oriented to person, place and time 09/12/2016 None Full Exam - Orthopedics MS: spine/rib/pelvis insp & palp - S/R/P Sacroiliac palpation: right sacroiliac joint tenderness 09/12/2016 None Full Exam - Orthopedics MS: spine/rib/pelvis insp & palp - S/R/P Hip palpation: no tenderness on palpation 09/12/2016 None Full Exam - General 1994 Constitutional general appearance Development: well developed 09/08/2016 None Full Exam - General 1994 Constitutional general appearance Development: appears stated age 0709/08/2016 None Full Exam - General 1994 Constitutional general appearance Hygiene/Attention to Grooming: good hygiene 09/08/2016 None Full Exam - General 1994 Eyes pupils and irises Overall: pupils equal, round, reactive to light and accomodation 09/08/2016 None Full Exam - General 1994 Respiratory auscultation Overall: breath sounds clear bilaterally 09/08/2016 None Full Exam - General 1994 Respiratory respiratory effort/rhythm Overall: no retractions 09/08/2016 None Full Exam - General 1994 Respiratory respiratory effort/rhythm Overall: normal rate 09/08/2016 None Full Exam - General 1994 Cardiovascular extremities Overall: no clubbing 09/08/2016 None Full Exam - General 1994 Cardiovascular extremities Edema present: pitting 09/08/2016 2+ Full Exam - General 1994 Cardiovascular auscultation of heart Overall: regular rate 09/08/2016 None Full Exam - General 1994 Cardiovascular auscultation of heart Overall: normal heart sounds 09/08/2016 None Full Exam - General 1994 Abdomen abdominal exam Overall: no tenderness 09/08/2016 None Full Exam - General 1994 Abdomen abdominal exam Overall: normal bowel sounds 09/08/2016 None Full Exam - General 1994 Psychiatric orientation/consciousness Overall: oriented to person, place and time 09/08/2016 None Full Exam - General 1994 Psychiatric mood and affect Overall: normal mood and affect 09/08/2016 None Full Exam - General 1994 Musculoskeletal upper extremity Inspection - shoulder: swelling 09/08/2016 removal of 35mL of bloody discharge from shoulder Full Exam - General 1994 Constitutional general appearance Development: well developed 08/26/2016 None Full Exam - General 1994 Constitutional general appearance Development: appears stated age 0608/26/2016 None Full Exam - General 1994 Constitutional general appearance Hygiene/Attention to Grooming: good hygiene 08/26/2016 None Full Exam - General 1994 Eyes pupils and irises Overall: pupils equal, round, reactive to light and accomodation 08/26/2016 None Full Exam - General 1994 Respiratory auscultation Overall: breath sounds clear bilaterally 08/26/2016 None Full Exam - General 1994 Respiratory respiratory effort/rhythm Overall: no retractions 08/26/2016 None Full Exam - General 1994 Respiratory respiratory effort/rhythm Overall: normal rate 08/26/2016 None Full Exam - General 1994 Cardiovascular extremities Overall: no clubbing 08/26/2016 None Full Exam - General 1994 Cardiovascular extremities Edema present: pitting 08/26/2016 2+ Full Exam - General 1994 Cardiovascular auscultation of heart Overall: regular rate 08/26/2016 None Full Exam - General 1994 Cardiovascular auscultation of heart Overall: normal heart sounds 08/26/2016 None Full Exam - General 1994 Abdomen abdominal exam Overall: no tenderness 08/26/2016 None Full Exam - General 1994 Abdomen abdominal exam Overall: normal bowel sounds 08/26/2016 None Full Exam - General 1994 Psychiatric orientation/consciousness Overall: oriented to person, place and time 08/26/2016 None Full Exam - General 1994 Psychiatric mood and affect Overall: normal mood and affect 08/26/2016 None Full Exam - General 1994 Constitutional general appearance Development: well developed 08/18/2016 None Full Exam - General 1994 Constitutional general appearance Development: appears stated age 0608/18/2016 None Full Exam - General 1994 Constitutional general appearance Hygiene/Attention to Grooming: good hygiene 08/18/2016 None Full Exam - General 1994 Eyes conjunctiva /eyelids Overall: conjunctiva clear 08/18/2016 None Full Exam - General 1994 Eyes conjunctiva /eyelids Overall: cornea clear 08/18/2016 None Full Exam - General 1994 Eyes conjunctiva /eyelids Overall: eyelids normal 08/18/2016 None Full Exam - General 1994 Eyes pupils and irises Overall: pupils equal, round, reactive to light and accomodation 08/18/2016 None Full Exam - General 1994 Ears/Nose/Throat otoscopic exam Overall: tympanic membranes clear 08/18/2016 None Full Exam - General 1994 Ears/Nose/Throat otoscopic exam External auditory canal: complete cerumen impaction 08/18/2016 None Full Exam - General 1994 Ears/Nose/Throat lips/teeth/gingiva Overall: benign lips 08/18/2016 None Full Exam - General 1994 Ears/Nose/Throat lips/teeth/gingiva Overall: normal dentition 08/18/2016 None Full Exam - General 1994 Ears/Nose/Throat oral cavity/pharynx/larynx Overall: oral mucosa clear 08/18/2016 None Full Exam - General 1994 Ears/Nose/Throat oral cavity/pharynx/larynx Overall: oropharyngeal mucosa clear 08/18/2016 None Full Exam - General 1994 Ears/Nose/Throat oral cavity/pharynx/larynx Overall: hypopharynx benign 08/18/2016 None Full Exam - General 1994 Ears/Nose/Throat oral cavity/pharynx/larynx Overall: no masses 08/18/2016 None Full Exam - General 1994 Respiratory auscultation Overall: breath sounds clear bilaterally 08/18/2016 None Full Exam - General 1994 Respiratory respiratory effort/rhythm Overall: no retractions 08/18/2016 None Full Exam - General 1994 Respiratory respiratory effort/rhythm Overall: normal rate 08/18/2016 None Full Exam - General 1994 Cardiovascular extremities Overall: no clubbing 08/18/2016 None Full Exam - General 1994 Cardiovascular extremities Edema present: pitting 08/18/2016 None Full Exam - General 1994 Cardiovascular extremities Edema present: severity 1+ - 4 +: 2+ 08/18/2016 None Full Exam - General 1994 Cardiovascular auscultation of heart Overall: regular rate 08/18/2016 None Full Exam - General 1994 Cardiovascular auscultation of heart Overall: normal heart sounds 08/18/2016 None Full Exam - General 1994 Abdomen abdominal exam Overall: no tenderness 08/18/2016 None Full Exam - General 1994 Abdomen abdominal exam Overall: normal bowel sounds 08/18/2016 None Full Exam - General 1994 Lymphatic neck nodes Overall: anterior cervical chain benign 08/18/2016 None Full Exam - General 1994 Lymphatic neck nodes Overall: posterior cervical chain benign 08/18/2016 None Full Exam - General 1994 Musculoskeletal gait and station Overall: normal gait 08/18/2016 None Full Exam - General 1994 Musculoskeletal gait and station Overall: normal station 08/18/2016 None Full Exam - General 1994 Musculoskeletal head and neck Overall: head atraumatic 08/18/2016 None Full Exam - General 1994 Musculoskeletal head and neck Overall: TMJ benign 08/18/2016 None Full Exam - General 1994 Integument inspection of skin Overall: few scattered moles, no gross abnormalities 08/18/2016 None Full Exam - General 1994 Neurologic deep tendon reflexes Overall: deep tendon reflexes intact 08/18/2016 None Full Exam - General 1994 Neurologic cranial nerves Overall: crainial nerves 2 - 12 grossly intact 08/18/2016 None Full Exam - General 1994 Psychiatric orientation/consciousness Overall: oriented to person, place and time 08/18/2016 None Full Exam - General 1994 Psychiatric mood and affect Overall: normal mood and affect 08/18/2016 None Full Exam - General 1994 Constitutional general appearance Overall: well developed 07/30/2016 None Full Exam - General 1994 Constitutional general appearance Overall: in no acute distress 07/30/2016 None Full Exam - General 1994 Constitutional general appearance Overall: well nourished 07/30/2016 None Full Exam - General 1994 Eyes conjunctiva /eyelids Overall: conjunctiva clear 07/30/2016 None Full Exam - General 1994 Eyes conjunctiva /eyelids Overall: eyelids normal 07/30/2016 None Full Exam - General 1994 Ears/Nose/Throat lips/teeth/gingiva Overall: benign lips 07/30/2016 None Full Exam - General 1994 Respiratory auscultation Overall: breath sounds clear bilaterally 07/30/2016 None Full Exam - General 1994 Respiratory respiratory effort/rhythm Overall: no retractions 07/30/2016 None Full Exam - General 1994 Respiratory respiratory effort/rhythm Overall: normal rate 07/30/2016 None Full Exam - General 1994 Cardiovascular auscultation of heart Overall: regular rate 07/30/2016 None Full Exam - General 1994 Cardiovascular auscultation of heart Overall: normal heart sounds 07/30/2016 None Full Exam - General 1994 Neurologic cranial nerves Overall: crainial nerves 2 - 12 grossly intact 07/30/2016 None Full Exam - General 1994 Psychiatric orientation/consciousness Overall: oriented to person, place and time 07/30/2016 None Full Exam - General 1994 Psychiatric mood and affect Overall: normal mood and affect 07/30/2016 None Full Exam - General 1994 Psychiatric appearance Overall: well-groomed, good eye contact 07/30/2016 None Full Exam - General 1994 Constitutional general appearance Development: appears stated age 0507/30/2016 None Full Exam - General 1994 Constitutional general appearance Hygiene/Attention to Grooming: good hygiene 07/30/2016 None Full Exam - General 1994 Eyes conjunctiva /eyelids Overall: cornea clear 07/30/2016 None Full Exam - General 1994 Eyes pupils and irises Overall: pupils equal, round, reactive to light and accomodation 07/30/2016 None Full Exam - General 1994 Ears/Nose/Throat otoscopic exam Overall: tympanic membranes clear 07/30/2016 None Full Exam - General 1994 Ears/Nose/Throat otoscopic exam External auditory canal: complete cerumen impaction 07/30/2016 None Full Exam - General 1994 Ears/Nose/Throat lips/teeth/gingiva Overall: normal dentition 07/30/2016 None Full Exam - General 1994 Ears/Nose/Throat oral cavity/pharynx/larynx Overall: oral mucosa clear 07/30/2016 None Full Exam - General 1994 Ears/Nose/Throat oral cavity/pharynx/larynx Overall: oropharyngeal mucosa clear 07/30/2016 None Full Exam - General 1994 Ears/Nose/Throat oral cavity/pharynx/larynx Overall: hypopharynx benign 07/30/2016 None Full Exam - General 1994 Ears/Nose/Throat oral cavity/pharynx/larynx Overall: no masses 07/30/2016 None Full Exam - General 1994 Cardiovascular extremities Overall: no clubbing 07/30/2016 None Full Exam - General 1994 Cardiovascular extremities Edema present: pitting 07/30/2016 None Full Exam - General 1994 Cardiovascular extremities Edema present: severity 1+ - 4 +: 2+ 07/30/2016 None Full Exam - General 1994 Abdomen abdominal exam Overall: no tenderness 07/30/2016 None Full Exam - General 1994 Abdomen abdominal exam Overall: normal bowel sounds 07/30/2016 None Full Exam - General 1994 Lymphatic neck nodes Overall: anterior cervical chain benign 07/30/2016 None Full Exam - General 1994 Lymphatic neck nodes Overall: posterior cervical chain benign 07/30/2016 None Full Exam - General 1994 Musculoskeletal gait and station Overall: normal gait 07/30/2016 None Full Exam - General 1994 Musculoskeletal gait and station Overall: normal station 07/30/2016 None Full Exam - General 1994 Musculoskeletal head and neck Overall: head atraumatic 07/30/2016 None Full Exam - General 1994 Integument inspection of skin Overall: few scattered moles, no gross abnormalities 07/30/2016 None Full Exam - General 1994 Neurologic deep tendon reflexes Overall: deep tendon reflexes intact 07/30/2016 None Full Exam - General 1994 Musculoskeletal head and neck Cervical Spine: tender 07/30/2016 along muscles of neck on right as well as on left lateral neck - scalenes are tender Full Exam - General 1994 Constitutional general appearance Overall: well developed 07/14/2016 None Full Exam - General 1994 Constitutional general appearance Overall: in no acute distress 07/14/2016 None Full Exam - General 1994 Constitutional general appearance Overall: well nourished 07/14/2016 None Full Exam - General 1994 Eyes conjunctiva /eyelids Overall: conjunctiva clear 07/14/2016 None Full Exam - General 1994 Eyes conjunctiva /eyelids Overall: eyelids normal 07/14/2016 None Full Exam - General 1994 Ears/Nose/Throat lips/teeth/gingiva Overall: benign lips 07/14/2016 None Full Exam - General 1994 Respiratory respiratory effort/rhythm Overall: no retractions 07/14/2016 None Full Exam - General 1994 Respiratory respiratory effort/rhythm Overall: normal rate 07/14/2016 None Full Exam - General 1994 Respiratory auscultation Overall: breath sounds clear bilaterally 07/14/2016 None Full Exam - General 1994 Cardiovascular auscultation of heart Overall: regular rate 07/14/2016 None Full Exam - General 1994 Cardiovascular auscultation of heart Overall: normal heart sounds 07/14/2016 None Full Exam - General 1994 Musculoskeletal upper extremity ROM - shoulder: pain with external rotation 07/14/2016 improving Full Exam - General 1994 Musculoskeletal upper extremity ROM - shoulder: pain with internal rotation 07/14/2016 improving Full Exam - General 1994 Neurologic cranial nerves Overall: crainial nerves 2 - 12 grossly intact 07/14/2016 None Full Exam - General 1994 Psychiatric orientation/consciousness Overall: oriented to person, place and time 07/14/2016 None Full Exam - General 1994 Psychiatric mood and affect Overall: normal mood and affect 07/14/2016 None Full Exam - General 1994 Psychiatric appearance Overall: well-groomed, good eye contact 07/14/2016 None Full Exam - Orthopedics Constitutional general appearance Overall: well nourished 07/04/2016 None Full Exam - Orthopedics Constitutional general appearance Overall: well developed 07/04/2016 None Full Exam - Orthopedics Constitutional general appearance Overall: in no acute distress 07/04/2016 None Full Exam - Orthopedics Eyes conjunctiva/ eyelids Overall: conjunctiva clear 07/04/2016 None Full Exam - Orthopedics Eyes conjunctiva/ eyelids Overall: eyelids normal 07/04/2016 None Full Exam - Orthopedics Ears/Nose/Throat lips/teeth/gingiva Overall: benign lips 07/04/2016 None Full Exam - Orthopedics Respiratory respiratory effort/rhythm Overall: no retractions 07/04/2016 None Full Exam - Orthopedics Respiratory respiratory effort/rhythm Overall: normal rate 07/04/2016 None Full Exam - Orthopedics MS: left upper extremity insp & palp - LUE Shoulder: swelling 07/04/2016 None Full Exam - Orthopedics MS: left upper extremity insp & palp - LUE Shoulder: tenderness @ subacromial space 07/04/2016 None Full Exam - Orthopedics MS: left upper extremity insp & palp - LUE Shoulder: tenderness @ biceps tendon 07/04/2016 None Full Exam - Orthopedics Psychiatric orientation/consciousness Overall: oriented to person, place and time 07/04/2016 None Full Exam - Orthopedics Psychiatric mood and affect Overall: normal mood and affect 07/04/2016 None Full Exam - Orthopedics Psychiatric appearance Overall: well-groomed, good eye contact 07/04/2016 None Full Exam - Orthopedics Cardiovascular examination of vasculature Overall: no clubbing, cyanosis, edema 07/04/2016 None Full Exam - General 1994 Constitutional general appearance Development: well developed 06/26/2016 None Full Exam - General 1994 Constitutional general appearance Development: appears stated age 0406/26/2016 None Full Exam - General 1994 Constitutional general appearance Hygiene/Attention to Grooming: good hygiene 06/26/2016 None Full Exam - General 1994 Eyes conjunctiva /eyelids Overall: conjunctiva clear 06/26/2016 None Full Exam - General 1994 Eyes conjunctiva /eyelids Overall: cornea clear 06/26/2016 None Full Exam - General 1994 Eyes conjunctiva /eyelids Overall: eyelids normal 06/26/2016 None Full Exam - General 1994 Eyes pupils and irises Overall: pupils equal, round, reactive to light and accomodation 06/26/2016 None Full Exam - General 1994 Ears/Nose/Throat otoscopic exam Overall: tympanic membranes clear 06/26/2016 None Full Exam - General 1994 Ears/Nose/Throat otoscopic exam External auditory canal: complete cerumen impaction 06/26/2016 None Full Exam - General 1994 Ears/Nose/Throat lips/teeth/gingiva Overall: benign lips 06/26/2016 None Full Exam - General 1994 Ears/Nose/Throat lips/teeth/gingiva Overall: normal dentition 06/26/2016 None Full Exam - General 1994 Ears/Nose/Throat oral cavity/pharynx/larynx Overall: oral mucosa clear 06/26/2016 None Full Exam - General 1994 Ears/Nose/Throat oral cavity/pharynx/larynx Overall: oropharyngeal mucosa clear 06/26/2016 None Full Exam - General 1994 Ears/Nose/Throat oral cavity/pharynx/larynx Overall: hypopharynx benign 06/26/2016 None Full Exam - General 1994 Ears/Nose/Throat oral cavity/pharynx/larynx Overall: no masses 06/26/2016 None Full Exam - General 1994 Respiratory auscultation Overall: breath sounds clear bilaterally 06/26/2016 None Full Exam - General 1994 Respiratory respiratory effort/rhythm Overall: no retractions 06/26/2016 None Full Exam - General 1994 Respiratory respiratory effort/rhythm Overall: normal rate 06/26/2016 None Full Exam - General 1994 Cardiovascular extremities Overall: no clubbing 06/26/2016 None Full Exam - General 1994 Cardiovascular extremities Edema present: pitting 06/26/2016 None Full Exam - General 1994 Cardiovascular extremities Edema present: severity 1+ - 4 +: 2+ 06/26/2016 None Full Exam - General 1994 Cardiovascular auscultation of heart Overall: regular rate 06/26/2016 None Full Exam - General 1994 Cardiovascular auscultation of heart Overall: normal heart sounds 06/26/2016 None Full Exam - General 1994 Abdomen abdominal exam Overall: no tenderness 06/26/2016 None Full Exam - General 1994 Abdomen abdominal exam Overall: normal bowel sounds 06/26/2016 None Full Exam - General 1994 Lymphatic neck nodes Overall: anterior cervical chain benign 06/26/2016 None Full Exam - General 1994 Lymphatic neck nodes Overall: posterior cervical chain benign 06/26/2016 None Full Exam - General 1994 Musculoskeletal head and neck Overall: head atraumatic 06/26/2016 None Full Exam - General 1994 Musculoskeletal head and neck Overall: TMJ benign 06/26/2016 None Full Exam - General 1994 Integument inspection of skin Overall: few scattered moles, no gross abnormalities 06/26/2016 None Full Exam - General 1994 Neurologic deep tendon reflexes Overall: deep tendon reflexes intact 06/26/2016 None Full Exam - General 1994 Neurologic cranial nerves Overall: crainial nerves 2 - 12 grossly intact 06/26/2016 None Full Exam - General 1994 Psychiatric orientation/consciousness Overall: oriented to person, place and time 06/26/2016 None Full Exam - General 1994 Psychiatric mood and affect Overall: normal mood and affect 06/26/2016 None Full Exam - General 1994 Musculoskeletal gait and station Overall: normal gait 06/26/2016 None Full Exam - General 1994 Musculoskeletal gait and station Overall: normal station 06/26/2016 None Full Exam - General 1994 Constitutional general appearance Development: well developed 05/28/2016 None Full Exam - General 1994 Constitutional general appearance Development: appears stated age 0305/28/2016 None Full Exam - General 1994 Constitutional general appearance Hygiene/Attention to Grooming: good hygiene 05/28/2016 None Full Exam - General 1994 Eyes conjunctiva /eyelids Overall: conjunctiva clear 05/28/2016 None Full Exam - General 1994 Eyes conjunctiva /eyelids Overall: cornea clear 05/28/2016 None Full Exam - General 1994 Eyes conjunctiva /eyelids Overall: eyelids normal 05/28/2016 None Full Exam - General 1994 Eyes pupils and irises Overall: pupils equal, round, reactive to light and accomodation 05/28/2016 None Full Exam - General 1995 Ears/Nose/Throat otoscopic exam Overall: tympanic membranes clear 05/28/2016 None Full Exam - General 1995 Ears/Nose/Throat otoscopic exam External auditory canal: complete cerumen impaction 05/28/2016 None Full Exam - General 1995 Ears/Nose/Throat lips/teeth/gingiva Overall: benign lips 05/28/2016 None Full Exam - General 1995 Ears/Nose/Throat lips/teeth/gingiva Overall: normal dentition 05/28/2016 None Full Exam - General 1994 Ears/Nose/Throat oral cavity/pharynx/larynx Overall: oral mucosa clear 05/28/2016 None Full Exam - General 1995 Ears/Nose/Throat oral cavity/pharynx/larynx Overall: oropharyngeal mucosa clear 05/28/2016 None Full Exam - General 1995 Ears/Nose/Throat oral cavity/pharynx/larynx Overall: hypopharynx benign 05/28/2016 None Full Exam - General 1995 Ears/Nose/Throat oral cavity/pharynx/larynx Overall: no masses 05/28/2016 None Full Exam - General 1994 Respiratory auscultation Overall: breath sounds clear bilaterally 05/28/2016 None Full Exam - General 1994 Respiratory respiratory effort/rhythm Overall: no retractions 05/28/2016 None Full Exam - General 1994 Respiratory respiratory effort/rhythm Overall: normal rate 05/28/2016 None Full Exam - General 1994 Cardiovascular extremities Overall: no clubbing 05/28/2016 None Full Exam - General 1994 Cardiovascular extremities Edema present: pitting 05/28/2016 None Full Exam - General 1994 Cardiovascular extremities Edema present: severity 1+ - 4 +: 2+ 05/28/2016 None Full Exam - General 1994 Cardiovascular auscultation of heart Overall: regular rate 05/28/2016 None Full Exam - General 1994 Cardiovascular auscultation of heart Overall: normal heart sounds 05/28/2016 None Full Exam - General 1994 Abdomen abdominal exam Overall: no tenderness 05/28/2016 None Full Exam - General 1994 Abdomen abdominal exam Overall: normal bowel sounds 05/28/2016 None Full Exam - General 1994 Lymphatic neck nodes Overall: anterior cervical chain benign 05/28/2016 None Full Exam - General 1994 Lymphatic neck nodes Overall: posterior cervical chain benign 05/28/2016 None Full Exam - General 1994 Musculoskeletal gait and station Overall: normal gait 05/28/2016 None Full Exam - General 1994 Musculoskeletal gait and station Overall: normal station 05/28/2016 None Full Exam - General 1994 Musculoskeletal head and neck Overall: head atraumatic 05/28/2016 None Full Exam - General 1994 Musculoskeletal head and neck Overall: TMJ benign 05/28/2016 None Full Exam - General 1994 Integument inspection of skin Overall: few scattered moles, no gross abnormalities 05/28/2016 None Full Exam - General 1994 Neurologic deep tendon reflexes Overall: deep tendon reflexes intact 05/28/2016 None Full Exam - General 1994 Neurologic cranial nerves Overall: crainial nerves 2 - 12 grossly intact 05/28/2016 None Full Exam - General 1994 Psychiatric orientation/consciousness Overall: oriented to person, place and time 05/28/2016 None Full Exam - General 1994 Psychiatric mood and affect Overall: normal mood and affect 05/28/2016 None Full Exam - General 1994 Constitutional general appearance Development: well developed 03/18/2016 None Full Exam - General 1994 Constitutional general appearance Development: appears stated age 0103/18/2016 None Full Exam - General 1994 Constitutional general appearance Hygiene/Attention to Grooming: good hygiene 03/18/2016 None Full Exam - General 1994 Eyes conjunctiva /eyelids Overall: conjunctiva clear 03/18/2016 None Full Exam - General 1994 Eyes conjunctiva /eyelids Overall: cornea clear 03/18/2016 None Full Exam - General 1994 Eyes conjunctiva /eyelids Overall: eyelids normal 03/18/2016 None Full Exam - General 1994 Eyes pupils and irises Overall: pupils equal, round, reactive to light and accomodation 03/18/2016 None Full Exam - General 1994 Ears/Nose/Throat otoscopic exam Overall: tympanic membranes clear 03/18/2016 None Full Exam - General 1994 Ears/Nose/Throat otoscopic exam External auditory canal: complete cerumen impaction 03/18/2016 None Full Exam - General 1994 Ears/Nose/Throat lips/teeth/gingiva Overall: benign lips 03/18/2016 None Full Exam - General 1994 Ears/Nose/Throat lips/teeth/gingiva Overall: normal dentition 03/18/2016 None Full Exam - General 1994 Ears/Nose/Throat oral cavity/pharynx/larynx Overall: oral mucosa clear 03/18/2016 None Full Exam - General 1994 Ears/Nose/Throat oral cavity/pharynx/larynx Overall: oropharyngeal mucosa clear 03/18/2016 None Full Exam - General 1994 Ears/Nose/Throat oral cavity/pharynx/larynx Overall: hypopharynx benign 03/18/2016 None Full Exam - General 1994 Ears/Nose/Throat oral cavity/pharynx/larynx Overall: no masses 03/18/2016 None Full Exam - General 1994 Respiratory auscultation Overall: breath sounds clear bilaterally 03/18/2016 None Full Exam - General 1994 Respiratory respiratory effort/rhythm Overall: no retractions 03/18/2016 None Full Exam - General 1994 Respiratory respiratory effort/rhythm Overall: normal rate 03/18/2016 None Full Exam - General 1994 Cardiovascular extremities Overall: no clubbing 03/18/2016 None Full Exam - General 1994 Cardiovascular extremities Edema present: pitting 03/18/2016 None Full Exam - General 1994 Cardiovascular extremities Edema present: severity 1+ - 4 +: 2+ 03/18/2016 None Full Exam - General 1994 Cardiovascular auscultation of heart Overall: regular rate 03/18/2016 None Full Exam - General 1994 Cardiovascular auscultation of heart Overall: normal heart sounds 03/18/2016 None Full Exam - General 1994 Abdomen abdominal exam Overall: no tenderness 03/18/2016 None Full Exam - General 1994 Abdomen abdominal exam Overall: normal bowel sounds 03/18/2016 None Full Exam - General 1994 Musculoskeletal gait and station Overall: normal gait 03/18/2016 None Full Exam - General 1994 Musculoskeletal gait and station Overall: normal station 03/18/2016 None Full Exam - General 1994 Musculoskeletal head and neck Overall: head atraumatic 03/18/2016 None Full Exam - General 1994 Musculoskeletal head and neck Overall: TMJ benign 03/18/2016 None Full Exam - General 1994 Integument inspection of skin Overall: few scattered moles, no gross abnormalities 03/18/2016 None Full Exam - General 1994 Neurologic deep tendon reflexes Overall: deep tendon reflexes intact 03/18/2016 None Full Exam - General 1994 Neurologic cranial nerves Overall: crainial nerves 2 - 12 grossly intact 03/18/2016 None Full Exam - General 1994 Psychiatric orientation/consciousness Overall: oriented to person, place and time 03/18/2016 None Full Exam - General 1994 Psychiatric mood and affect Overall: normal mood and affect 03/18/2016 None Full Exam - General 1994 Constitutional general appearance Development: well developed 01/29/2016 None Full Exam - General 1994 Constitutional general appearance Development: appears stated age 1101/29/2016 None Full Exam - General 1994 Constitutional general appearance Hygiene/Attention to Grooming: good hygiene 01/29/2016 None Full Exam - General 1994 Eyes conjunctiva /eyelids Overall: conjunctiva clear 01/29/2016 None Full Exam - General 1994 Eyes conjunctiva /eyelids Overall: cornea clear 01/29/2016 None Full Exam - General 1994 Eyes conjunctiva /eyelids Overall: eyelids normal 01/29/2016 None Full Exam - General 1994 Eyes pupils and irises Overall: pupils equal, round, reactive to light and accomodation 01/29/2016 None Full Exam - General 1994 Ears/Nose/Throat otoscopic exam Overall: tympanic membranes clear 01/29/2016 None Full Exam - General 1994 Ears/Nose/Throat otoscopic exam External auditory canal: complete cerumen impaction 01/29/2016 None Full Exam - General 1994 Ears/Nose/Throat lips/teeth/gingiva Overall: benign lips 01/29/2016 None Full Exam - General 1994 Ears/Nose/Throat lips/teeth/gingiva Overall: normal dentition 01/29/2016 None Full Exam - General 1994 Ears/Nose/Throat oral cavity/pharynx/larynx Overall: oral mucosa clear 01/29/2016 None Full Exam - General 1994 Ears/Nose/Throat oral cavity/pharynx/larynx Overall: oropharyngeal mucosa clear 01/29/2016 None Full Exam - General 1994 Ears/Nose/Throat oral cavity/pharynx/larynx Overall: hypopharynx benign 01/29/2016 None Full Exam - General 1994 Ears/Nose/Throat oral cavity/pharynx/larynx Overall: no masses 01/29/2016 None Full Exam - General 1994 Respiratory auscultation Overall: breath sounds clear bilaterally 01/29/2016 None Full Exam - General 1994 Respiratory respiratory effort/rhythm Overall: no retractions 01/29/2016 None Full Exam - General 1994 Respiratory respiratory effort/rhythm Overall: normal rate 01/29/2016 None Full Exam - General 1994 Cardiovascular extremities Overall: no clubbing 01/29/2016 None Full Exam - General 1994 Cardiovascular extremities Edema present: pitting 01/29/2016 None Full Exam - General 1994 Cardiovascular extremities Edema present: severity 1+ - 4 +: 2+ 01/29/2016 None Full Exam - General 1994 Cardiovascular auscultation of heart Overall: regular rate 01/29/2016 None Full Exam - General 1994 Cardiovascular auscultation of heart Overall: normal heart sounds 01/29/2016 None Full Exam - General 1994 Abdomen abdominal exam Overall: no tenderness 01/29/2016 None Full Exam - General 1994 Abdomen abdominal exam Overall: normal bowel sounds 01/29/2016 None Full Exam - General 1994 Musculoskeletal gait and station Overall: normal gait 01/29/2016 None Full Exam - General 1994 Musculoskeletal gait and station Overall: normal station 01/29/2016 None Full Exam - General 1994 Musculoskeletal head and neck Overall: head atraumatic 01/29/2016 None Full Exam - General 1994 Musculoskeletal head and neck Overall: TMJ benign 01/29/2016 None Full Exam - General 1994 Integument inspection of skin Overall: few scattered moles, no gross abnormalities 01/29/2016 None Full Exam - General 1994 Neurologic deep tendon reflexes Overall: deep tendon reflexes intact 01/29/2016 None Full Exam - General 1994 Neurologic cranial nerves Overall: crainial nerves 2 - 12 grossly intact 01/29/2016 None Full Exam - General 1994 Psychiatric orientation/consciousness Overall: oriented to person, place and time 01/29/2016 None Full Exam - General 1994 Psychiatric mood and affect Overall: normal mood and affect 01/29/2016 None Full Exam - General 1994 Constitutional general appearance Development: well developed 01/01/2016 None Full Exam - General 1994 Constitutional general appearance Development: appears stated age 1101/01/2016 None Full Exam - General 1994 Constitutional general appearance Hygiene/Attention to Grooming: good hygiene 01/01/2016 None Full Exam - General 1994 Eyes conjunctiva /eyelids Overall: conjunctiva clear 01/01/2016 None Full Exam - General 1994 Eyes conjunctiva /eyelids Overall: cornea clear 01/01/2016 None Full Exam - General 1994 Eyes conjunctiva /eyelids Overall: eyelids normal 01/01/2016 None Full Exam - General 1994 Eyes pupils and irises Overall: pupils equal, round, reactive to light and accomodation 01/01/2016 None Full Exam - General 1994 Ears/Nose/Throat otoscopic exam Overall: tympanic membranes clear 01/01/2016 None Full Exam - General 1994 Ears/Nose/Throat otoscopic exam External auditory canal: complete cerumen impaction 01/01/2016 None Full Exam - General 1994 Ears/Nose/Throat lips/teeth/gingiva Overall: benign lips 01/01/2016 None Full Exam - General 1994 Ears/Nose/Throat lips/teeth/gingiva Overall: normal dentition 01/01/2016 None Full Exam - General 1994 Ears/Nose/Throat oral cavity/pharynx/larynx Overall: oral mucosa clear 01/01/2016 None Full Exam - General 1994 Ears/Nose/Throat oral cavity/pharynx/larynx Overall: oropharyngeal mucosa clear 01/01/2016 None Full Exam - General 1994 Ears/Nose/Throat oral cavity/pharynx/larynx Overall: hypopharynx benign 01/01/2016 None Full Exam - General 1994 Ears/Nose/Throat oral cavity/pharynx/larynx Overall: no masses 01/01/2016 None Full Exam - General 1994 Respiratory auscultation Overall: breath sounds clear bilaterally 01/01/2016 None Full Exam - General 1994 Respiratory respiratory effort/rhythm Overall: no retractions 01/01/2016 None Full Exam - General 1994 Respiratory respiratory effort/rhythm Overall: normal rate 01/01/2016 None Full Exam - General 1994 Cardiovascular extremities Overall: no clubbing 01/01/2016 None Full Exam - General 1994 Cardiovascular extremities Edema present: pitting 01/01/2016 None Full Exam - General 1994 Cardiovascular extremities Edema present: severity 1+ - 4 +: 2+ 01/01/2016 None Full Exam - General 1994 Cardiovascular auscultation of heart Overall: regular rate 01/01/2016 None Full Exam - General 1994 Cardiovascular auscultation of heart Overall: normal heart sounds 01/01/2016 None Full Exam - General 1994 Abdomen abdominal exam Overall: no tenderness 01/01/2016 None Full Exam - General 1994 Abdomen abdominal exam Overall: normal bowel sounds 01/01/2016 None Full Exam - General 1994 Lymphatic neck nodes Overall: anterior cervical chain benign 01/01/2016 None Full Exam - General 1994 Lymphatic neck nodes Overall: posterior cervical chain benign 01/01/2016 None Full Exam - General 1994 Musculoskeletal gait and station Overall: normal gait 01/01/2016 None Full Exam - General 1994 Musculoskeletal gait and station Overall: normal station 01/01/2016 None Full Exam - General 1994 Musculoskeletal head and neck Overall: head atraumatic 01/01/2016 None Full Exam - General 1994 Musculoskeletal head and neck Overall: TMJ benign 01/01/2016 None Full Exam - General 1994 Integument inspection of skin Overall: few scattered moles, no gross abnormalities 01/01/2016 None Full Exam - General 1994 Neurologic deep tendon reflexes Overall: deep tendon reflexes intact 01/01/2016 None Full Exam - General 1994 Neurologic cranial nerves Overall: crainial nerves 2 - 12 grossly intact 01/01/2016 None Full Exam - General 1994 Psychiatric orientation/consciousness Overall: oriented to person, place and time 01/01/2016 None Full Exam - General 1994 Psychiatric mood and affect Overall: normal mood and affect 01/01/2016 None Full Exam - General 1994 Constitutional general appearance Development: well developed 11/19/2015 None Full Exam - General 1994 Constitutional general appearance Development: appears stated age 0911/19/2015 None Full Exam - General 1994 Constitutional general appearance Hygiene/Attention to Grooming: good hygiene 11/19/2015 None Full Exam - General 1994 Eyes conjunctiva /eyelids Overall: conjunctiva clear 11/19/2015 None Full Exam - General 1994 Eyes conjunctiva /eyelids Overall: cornea clear 11/19/2015 None Full Exam - General 1994 Eyes conjunctiva /eyelids Overall: eyelids normal 11/19/2015 None Full Exam - General 1994 Eyes pupils and irises Overall: pupils equal, round, reactive to light and accomodation 11/19/2015 None Full Exam - General 1994 Ears/Nose/Throat otoscopic exam Overall: tympanic membranes clear 11/19/2015 None Full Exam - General 1994 Ears/Nose/Throat otoscopic exam External auditory canal: complete cerumen impaction 11/19/2015 None Full Exam - General 1994 Ears/Nose/Throat lips/teeth/gingiva Overall: benign lips 11/19/2015 None Full Exam - General 1994 Ears/Nose/Throat lips/teeth/gingiva Overall: normal dentition 11/19/2015 None Full Exam - General 1994 Ears/Nose/Throat oral cavity/pharynx/larynx Overall: oral mucosa clear 11/19/2015 None Full Exam - General 1994 Ears/Nose/Throat oral cavity/pharynx/larynx Overall: oropharyngeal mucosa clear 11/19/2015 None Full Exam - General 1994 Ears/Nose/Throat oral cavity/pharynx/larynx Overall: hypopharynx benign 11/19/2015 None Full Exam - General 1994 Ears/Nose/Throat oral cavity/pharynx/larynx Overall: no masses 11/19/2015 None Full Exam - General 1994 Respiratory auscultation Overall: breath sounds clear bilaterally 11/19/2015 None Full Exam - General 1994 Respiratory respiratory effort/rhythm Overall: no retractions 11/19/2015 None Full Exam - General 1994 Respiratory respiratory effort/rhythm Overall: normal rate 11/19/2015 None Full Exam - General 1994 Cardiovascular extremities Overall: no clubbing 11/19/2015 None Full Exam - General 1994 Cardiovascular extremities Edema present: pitting 11/19/2015 None Full Exam - General 1994 Cardiovascular extremities Edema present: severity 1+ - 4 +: 2+ 11/19/2015 None Full Exam - General 1994 Cardiovascular auscultation of heart Overall: regular rate 11/19/2015 None Full Exam - General 1994 Cardiovascular auscultation of heart Overall: normal heart sounds 11/19/2015 None Full Exam - General 1994 Abdomen abdominal exam Overall: no tenderness 11/19/2015 None Full Exam - General 1994 Abdomen abdominal exam Overall: normal bowel sounds 11/19/2015 None Full Exam - General 1994 Musculoskeletal gait and station Overall: normal gait 11/19/2015 None Full Exam - General 1994 Musculoskeletal gait and station Overall: normal station 11/19/2015 None Full Exam - General 1994 Musculoskeletal head and neck Overall: head atraumatic 11/19/2015 None Full Exam - General 1994 Musculoskeletal head and neck Overall: TMJ benign 11/19/2015 None Full Exam - General 1994 Integument inspection of skin Overall: few scattered moles, no gross abnormalities 11/19/2015 None Full Exam - General 1994 Neurologic deep tendon reflexes Overall: deep tendon reflexes intact 11/19/2015 None Full Exam - General 1994 Neurologic cranial nerves Overall: crainial nerves 2 - 12 grossly intact 11/19/2015 None Full Exam - General 1994 Psychiatric orientation/consciousness Overall: oriented to person, place and time 11/19/2015 None Full Exam - General 1994 Psychiatric mood and affect Overall: normal mood and affect 11/19/2015 None Full Exam - Dermatology Constitutional general appearance Overall: well nourished 11/01/2015 None Full Exam - Dermatology Constitutional general appearance Overall: well developed 11/01/2015 None Full Exam - Dermatology Constitutional general appearance Overall: of normal body habitus 11/01/2015 None Full Exam - Dermatology Constitutional general appearance Overall: well groomed 11/01/2015 None Full Exam - Dermatology Constitutional general appearance Overall: in no acute distress 11/01/2015 None Full Exam - Dermatology Psychiatric orientation Overall: oriented to person, place and time 11/01/2015 None Full Exam - Dermatology Integument insp & palp - left upper extremity Lesion: papule 11/01/2015 None Full Exam - Dermatology Integument insp & palp - left upper extremity Distribution: isolated 11/01/2015 None Full Exam - Dermatology Integument insp & palp - left upper extremity Location: on the upper arm 11/01/2015 None Full Exam - Dermatology Integument insp & palp - left upper extremity Color: erythematous 11/01/2015 None Full Exam - General 1994 Constitutional general appearance Development: well developed 09/04/2015 None Full Exam - General 1994 Constitutional general appearance Development: appears stated age 0709/04/2015 None Full Exam - General 1994 Constitutional general appearance Hygiene/Attention to Grooming: good hygiene 09/04/2015 None Full Exam - General 1994 Eyes conjunctiva /eyelids Overall: conjunctiva clear 09/04/2015 None Full Exam - General 1994 Eyes conjunctiva /eyelids Overall: cornea clear 09/04/2015 None Full Exam - General 1994 Eyes conjunctiva /eyelids Overall: eyelids normal 09/04/2015 None Full Exam - General 1994 Eyes pupils and irises Overall: pupils equal, round, reactive to light and accomodation 09/04/2015 None Full Exam - General 1994 Ears/Nose/Throat otoscopic exam Overall: tympanic membranes clear 09/04/2015 None Full Exam - General 1994 Ears/Nose/Throat otoscopic exam External auditory canal: complete cerumen impaction 09/04/2015 None Full Exam - General 1994 Ears/Nose/Throat lips/teeth/gingiva Overall: benign lips 09/04/2015 None Full Exam - General 1994 Ears/Nose/Throat lips/teeth/gingiva Overall: normal dentition 09/04/2015 None Full Exam - General 1994 Ears/Nose/Throat oral cavity/pharynx/larynx Overall: oral mucosa clear 09/04/2015 None Full Exam - General 1994 Ears/Nose/Throat oral cavity/pharynx/larynx Overall: oropharyngeal mucosa clear 09/04/2015 None Full Exam - General 1994 Ears/Nose/Throat oral cavity/pharynx/larynx Overall: hypopharynx benign 09/04/2015 None Full Exam - General 1994 Ears/Nose/Throat oral cavity/pharynx/larynx Overall: no masses 09/04/2015 None Full Exam - General 1994 Respiratory auscultation Overall: breath sounds clear bilaterally 09/04/2015 None Full Exam - General 1994 Respiratory respiratory effort/rhythm Overall: no retractions 09/04/2015 None Full Exam - General 1994 Respiratory respiratory effort/rhythm Overall: normal rate 09/04/2015 None Full Exam - General 1994 Cardiovascular extremities Overall: no clubbing 09/04/2015 None Full Exam - General 1994 Cardiovascular extremities Edema present: pitting 09/04/2015 None Full Exam - General 1994 Cardiovascular extremities Edema present: severity 1+ - 4 +: 2+ 09/04/2015 None Full Exam - General 1994 Cardiovascular auscultation of heart Overall: regular rate 09/04/2015 None Full Exam - General 1994 Cardiovascular auscultation of heart Overall: normal heart sounds 09/04/2015 None Full Exam - General 1994 Abdomen abdominal exam Overall: no tenderness 09/04/2015 None Full Exam - General 1994 Abdomen abdominal exam Overall: normal bowel sounds 09/04/2015 None Full Exam - General 1994 Lymphatic neck nodes Overall: anterior cervical chain benign 09/04/2015 None Full Exam - General 1994 Lymphatic neck nodes Overall: posterior cervical chain benign 09/04/2015 None Full Exam - General 1994 Musculoskeletal gait and station Overall: normal gait 09/04/2015 None Full Exam - General 1994 Musculoskeletal gait and station Overall: normal station 09/04/2015 None Full Exam - General 1994 Musculoskeletal head and neck Overall: head atraumatic 09/04/2015 None Full Exam - General 1994 Musculoskeletal head and neck Overall: TMJ benign 09/04/2015 None Full Exam - General 1994 Integument inspection of skin Overall: few scattered moles, no gross abnormalities 09/04/2015 None Full Exam - General 1994 Neurologic deep tendon reflexes Overall: deep tendon reflexes intact 09/04/2015 None Full Exam - General 1994 Neurologic cranial nerves Overall: crainial nerves 2 - 12 grossly intact 09/04/2015 None Full Exam - General 1994 Psychiatric orientation/consciousness Overall: oriented to person, place and time 09/04/2015 None Full Exam - General 1994 Psychiatric mood and affect Overall: normal mood and affect 09/04/2015 None Full Exam - General 1994 Constitutional general appearance Development: well developed 2015 None Full Exam - General 1994 Constitutional general appearance Development: appears stated age 0608/09/2015 None Full Exam - General 1994 Constitutional general appearance Hygiene/Attention to Grooming: good hygiene 2015 None Full Exam - General 1994 Eyes conjunctiva /eyelids Overall: conjunctiva clear 2015 None Full Exam - General 1994 Eyes conjunctiva /eyelids Overall: cornea clear 2015 None Full Exam - General 1994 Eyes conjunctiva /eyelids Overall: eyelids normal 2015 None Full Exam - General 1994 Ears/Nose/Throat lips/teeth/gingiva Overall: benign lips 2015 None Full Exam - General 1994 Ears/Nose/Throat lips/teeth/gingiva Overall: normal dentition 2015 None Full Exam - General 1994 Ears/Nose/Throat oral cavity/pharynx/larynx Overall: oral mucosa clear 2015 None Full Exam - General 1994 Respiratory auscultation Overall: breath sounds clear bilaterally 2015 None Full Exam - General 1994 Respiratory respiratory effort/rhythm Overall: no retractions 2015 None Full Exam - General 1994 Respiratory respiratory effort/rhythm Overall: normal rate 2015 None Full Exam - General 1994 Cardiovascular extremities Overall: no clubbing 2015 None Full Exam - General 1994 Cardiovascular extremities Edema present: pitting 2015 None Full Exam - General 1994 Cardiovascular extremities Edema present: severity 1+ - 4 +: 2+ 2015 None Full Exam - General 1994 Cardiovascular auscultation of heart Overall: regular rate 2015 None Full Exam - General 1994 Cardiovascular auscultation of heart Overall: normal heart sounds 2015 None Full Exam - General 1994 Musculoskeletal gait and station Overall: normal gait 2015 None Full Exam - General 1994 Musculoskeletal gait and station Overall: normal station 2015 None Full Exam - General 1994 Musculoskeletal head and neck Overall: head atraumatic 2015 None Full Exam - General 1994 Integument inspection of skin Location: left arm 2015 None Full Exam - General 1994 Integument inspection of skin Pigmentation: ecchymosis 2015 boggy, hematoma Full Exam - General 1994 Neurologic cranial nerves Overall: crainial nerves 2 - 12 grossly intact 2015 None Full Exam - General 1994 Psychiatric orientation/consciousness Overall: oriented to person, place and time 2015 None Full Exam - General 1994 Psychiatric mood and affect Overall: normal mood and affect 2015 None Full Exam - General 1994 Constitutional general appearance Development: well developed 07/18/2015 None Full Exam - General 1994 Constitutional general appearance Development: appears stated age 0507/18/2015 None Full Exam - General 1994 Constitutional general appearance Hygiene/Attention to Grooming: good hygiene 07/18/2015 None Full Exam - General 1994 Eyes conjunctiva /eyelids Overall: conjunctiva clear 07/18/2015 None Full Exam - General 1994 Eyes conjunctiva /eyelids Overall: cornea clear 07/18/2015 None Full Exam - General 1994 Eyes conjunctiva /eyelids Overall: eyelids normal 07/18/2015 None Full Exam - General 1994 Ears/Nose/Throat lips/teeth/gingiva Overall: benign lips 07/18/2015 None Full Exam - General 1994 Ears/Nose/Throat lips/teeth/gingiva Overall: normal dentition 07/18/2015 None Full Exam - General 1994 Ears/Nose/Throat oral cavity/pharynx/larynx Overall: oral mucosa clear 07/18/2015 None Full Exam - General 1994 Respiratory auscultation Overall: breath sounds clear bilaterally 07/18/2015 None Full Exam - General 1994 Respiratory respiratory effort/rhythm Overall: no retractions 07/18/2015 None Full Exam - General 1994 Respiratory respiratory effort/rhythm Overall: normal rate 07/18/2015 None Full Exam - General 1994 Cardiovascular extremities Overall: no clubbing 07/18/2015 None Full Exam - General 1994 Cardiovascular extremities Edema present: pitting 07/18/2015 None Full Exam - General 1994 Cardiovascular extremities Edema present: severity 1+ - 4 +: 2+ 07/18/2015 None Full Exam - General 1994 Cardiovascular auscultation of heart Overall: regular rate 07/18/2015 None Full Exam - General 1994 Cardiovascular auscultation of heart Overall: normal heart sounds 07/18/2015 None Full Exam - General 1994 Musculoskeletal gait and station Overall: normal gait 07/18/2015 None Full Exam - General 1994 Musculoskeletal gait and station Overall: normal station 07/18/2015 None Full Exam - General 1994 Musculoskeletal head and neck Overall: head atraumatic 07/18/2015 None Full Exam - General 1994 Neurologic cranial nerves Overall: crainial nerves 2 - 12 grossly intact 07/18/2015 None Full Exam - General 1994 Psychiatric orientation/consciousness Overall: oriented to person, place and time 07/18/2015 None Full Exam - General 1994 Psychiatric mood and affect Overall: normal mood and affect 07/18/2015 None Full Exam - General 1994 Integument inspection of skin Location: left arm 07/18/2015 None Full Exam - General 1994 Integument inspection of skin Pigmentation: ecchymosis 07/18/2015 None Full Exam - General 1994 Integument inspection of skin Pigmentation: erythematous 07/18/2015 None Full Exam - General 1994 Constitutional general appearance Development: well developed 07/02/2015 None Full Exam - General 1994 Constitutional general appearance Development: appears stated age 0507/02/2015 None Full Exam - General 1994 Constitutional general appearance Hygiene/Attention to Grooming: good hygiene 07/02/2015 None Full Exam - General 1994 Eyes conjunctiva /eyelids Overall: conjunctiva clear 07/02/2015 None Full Exam - General 1994 Eyes conjunctiva /eyelids Overall: cornea clear 07/02/2015 None Full Exam - General 1994 Eyes conjunctiva /eyelids Overall: eyelids normal 07/02/2015 None Full Exam - General 1994 Eyes pupils and irises Overall: pupils equal, round, reactive to light and accomodation 07/02/2015 None Full Exam - General 1994 Ears/Nose/Throat otoscopic exam Overall: tympanic membranes clear 07/02/2015 None Full Exam - General 1994 Ears/Nose/Throat otoscopic exam External auditory canal: complete cerumen impaction 07/02/2015 None Full Exam - General 1994 Ears/Nose/Throat lips/teeth/gingiva Overall: benign lips 07/02/2015 None Full Exam - General 1994 Ears/Nose/Throat lips/teeth/gingiva Overall: normal dentition 07/02/2015 None Full Exam - General 1994 Ears/Nose/Throat oral cavity/pharynx/larynx Overall: oral mucosa clear 07/02/2015 None Full Exam - General 1994 Ears/Nose/Throat oral cavity/pharynx/larynx Overall: oropharyngeal mucosa clear 07/02/2015 None Full Exam - General 1994 Ears/Nose/Throat oral cavity/pharynx/larynx Overall: hypopharynx benign 07/02/2015 None Full Exam - General 1994 Ears/Nose/Throat oral cavity/pharynx/larynx Overall: no masses 07/02/2015 None Full Exam - General 1994 Respiratory auscultation Overall: breath sounds clear bilaterally 07/02/2015 None Full Exam - General 1994 Respiratory respiratory effort/rhythm Overall: no retractions 07/02/2015 None Full Exam - General 1994 Respiratory respiratory effort/rhythm Overall: normal rate 07/02/2015 None Full Exam - General 1994 Cardiovascular extremities Overall: no clubbing 07/02/2015 None Full Exam - General 1994 Cardiovascular extremities Edema present: pitting 07/02/2015 None Full Exam - General 1994 Cardiovascular extremities Edema present: severity 1+ - 4 +: 2+ 07/02/2015 None Full Exam - General 1994 Cardiovascular auscultation of heart Overall: regular rate 07/02/2015 None Full Exam - General 1994 Cardiovascular auscultation of heart Overall: normal heart sounds 07/02/2015 None Full Exam - General 1994 Abdomen abdominal exam Overall: no tenderness 07/02/2015 None Full Exam - General 1994 Abdomen abdominal exam Overall: normal bowel sounds 07/02/2015 None Full Exam - General 1994 Lymphatic neck nodes Overall: anterior cervical chain benign 07/02/2015 None Full Exam - General 1994 Lymphatic neck nodes Overall: posterior cervical chain benign 07/02/2015 None Full Exam - General 1994 Musculoskeletal gait and station Overall: normal gait 07/02/2015 None Full Exam - General 1994 Musculoskeletal gait and station Overall: normal station 07/02/2015 None Full Exam - General 1994 Musculoskeletal head and neck Overall: head atraumatic 07/02/2015 None Full Exam - General 1994 Musculoskeletal head and neck Overall: TMJ benign 07/02/2015 None Full Exam - General 1994 Integument inspection of skin Overall: few scattered moles, no gross abnormalities 07/02/2015 None Full Exam - General 1994 Neurologic deep tendon reflexes Overall: deep tendon reflexes intact 07/02/2015 None Full Exam - General 1994 Neurologic cranial nerves Overall: crainial nerves 2 - 12 grossly intact 07/02/2015 None Full Exam - General 1994 Psychiatric orientation/consciousness Overall: oriented to person, place and time 07/02/2015 None Full Exam - General 1994 Psychiatric mood and affect Overall: normal mood and affect 07/02/2015 None Full Exam - General 1994 Constitutional general appearance Development: well developed 05/31/2015 None Full Exam - General 1994 Constitutional general appearance Development: appears stated age 0305/31/2015 None Full Exam - General 1994 Constitutional general appearance Hygiene/Attention to Grooming: good hygiene 05/31/2015 None Full Exam - General 1994 Eyes conjunctiva /eyelids Overall: conjunctiva clear 05/31/2015 None Full Exam - General 1994 Eyes conjunctiva /eyelids Overall: cornea clear 05/31/2015 None Full Exam - General 1994 Eyes conjunctiva /eyelids Overall: eyelids normal 05/31/2015 None Full Exam - General 1994 Eyes pupils and irises Overall: pupils equal, round, reactive to light and accomodation 05/31/2015 None Full Exam - General 1994 Ears/Nose/Throat otoscopic exam Overall: tympanic membranes clear 05/31/2015 None Full Exam - General 1994 Ears/Nose/Throat otoscopic exam External auditory canal: complete cerumen impaction 05/31/2015 None Full Exam - General 1994 Ears/Nose/Throat lips/teeth/gingiva Overall: benign lips 05/31/2015 None Full Exam - General 1994 Ears/Nose/Throat lips/teeth/gingiva Overall: normal dentition 05/31/2015 None Full Exam - General 1994 Ears/Nose/Throat oral cavity/pharynx/larynx Overall: oral mucosa clear 05/31/2015 None Full Exam - General 1994 Ears/Nose/Throat oral cavity/pharynx/larynx Overall: oropharyngeal mucosa clear 05/31/2015 None Full Exam - General 1994 Ears/Nose/Throat oral cavity/pharynx/larynx Overall: hypopharynx benign 05/31/2015 None Full Exam - General 1994 Ears/Nose/Throat oral cavity/pharynx/larynx Overall: no masses 05/31/2015 None Full Exam - General 1994 Respiratory auscultation Overall: breath sounds clear bilaterally 05/31/2015 None Full Exam - General 1994 Respiratory respiratory effort/rhythm Overall: no retractions 05/31/2015 None Full Exam - General 1994 Respiratory respiratory effort/rhythm Overall: normal rate 05/31/2015 None Full Exam - General 1994 Cardiovascular extremities Overall: no clubbing 05/31/2015 None Full Exam - General 1994 Cardiovascular extremities Edema present: pitting 05/31/2015 None Full Exam - General 1994 Cardiovascular extremities Edema present: severity 1+ - 4 +: 2+ 05/31/2015 None Full Exam - General 1994 Cardiovascular auscultation of heart Overall: regular rate 05/31/2015 None Full Exam - General 1994 Cardiovascular auscultation of heart Overall: normal heart sounds 05/31/2015 None Full Exam - General 1994 Abdomen abdominal exam Overall: no tenderness 05/31/2015 None Full Exam - General 1994 Abdomen abdominal exam Overall: normal bowel sounds 05/31/2015 None Full Exam - General 1994 Integument inspection of skin Overall: few scattered moles, no gross abnormalities 05/31/2015 None Full Exam - General 1994 Neurologic deep tendon reflexes Overall: deep tendon reflexes intact 05/31/2015 None Full Exam - General 1994 Neurologic cranial nerves Overall: crainial nerves 2 - 12 grossly intact 05/31/2015 None Full Exam - General 1994 Psychiatric orientation/consciousness Overall: oriented to person, place and time 05/31/2015 None Full Exam - General 1994 Psychiatric mood and affect Overall: normal mood and affect 05/31/2015 None Full Exam - General 1994 Lymphatic neck nodes Overall: anterior cervical chain benign 05/31/2015 None Full Exam - General 1994 Lymphatic neck nodes Overall: posterior cervical chain benign 05/31/2015 None Full Exam - General 1994 Musculoskeletal head and neck Overall: head atraumatic 05/31/2015 None Full Exam - General 1994 Musculoskeletal head and neck Overall: TMJ benign 05/31/2015 None Full Exam - General 1994 Musculoskeletal gait and station Overall: normal station 05/31/2015 None Full Exam - General 1994 Musculoskeletal gait and station Overall: normal gait 05/31/2015 None Full Exam - General 1994 Constitutional general appearance Development: well developed 04/09/2015 None Full Exam - General 1994 Constitutional general appearance Development: appears stated age 0204/09/2015 None Full Exam - General 1994 Constitutional general appearance Hygiene/Attention to Grooming: good hygiene 04/09/2015 None Full Exam - General 1994 Eyes conjunctiva /eyelids Overall: conjunctiva clear 04/09/2015 None Full Exam - General 1994 Eyes conjunctiva /eyelids Overall: cornea clear 04/09/2015 None Full Exam - General 1994 Eyes conjunctiva /eyelids Overall: eyelids normal 04/09/2015 None Full Exam - General 1994 Eyes pupils and irises Overall: pupils equal, round, reactive to light and accomodation 04/09/2015 None Full Exam - General 1994 Ears/Nose/Throat otoscopic exam Overall: tympanic membranes clear 04/09/2015 None Full Exam - General 1994 Ears/Nose/Throat lips/teeth/gingiva Overall: benign lips 04/09/2015 None Full Exam - General 1994 Ears/Nose/Throat lips/teeth/gingiva Overall: normal dentition 04/09/2015 None Full Exam - General 1994 Ears/Nose/Throat oral cavity/pharynx/larynx Overall: oral mucosa clear 04/09/2015 None Full Exam - General 1994 Ears/Nose/Throat oral cavity/pharynx/larynx Overall: oropharyngeal mucosa clear 04/09/2015 None Full Exam - General 1994 Ears/Nose/Throat oral cavity/pharynx/larynx Overall: hypopharynx benign 04/09/2015 None Full Exam - General 1994 Ears/Nose/Throat oral cavity/pharynx/larynx Overall: no masses 04/09/2015 None Full Exam - General 1994 Respiratory auscultation Overall: breath sounds clear bilaterally 04/09/2015 None Full Exam - General 1994 Respiratory respiratory effort/rhythm Overall: no retractions 04/09/2015 None Full Exam - General 1994 Respiratory respiratory effort/rhythm Overall: normal rate 04/09/2015 None Full Exam - General 1994 Cardiovascular extremities Overall: no clubbing 04/09/2015 None Full Exam - General 1994 Cardiovascular extremities Edema present: pitting 04/09/2015 None Full Exam - General 1994 Cardiovascular extremities Edema present: severity 1+ - 4 +: 2+ 04/09/2015 None Full Exam - General 1994 Cardiovascular auscultation of heart Overall: regular rate 04/09/2015 None Full Exam - General 1994 Cardiovascular auscultation of heart Overall: normal heart sounds 04/09/2015 None Full Exam - General 1994 Abdomen abdominal exam Overall: no tenderness 04/09/2015 None Full Exam - General 1994 Abdomen abdominal exam Overall: normal bowel sounds 04/09/2015 None Full Exam - General 1994 Integument inspection of skin Overall: few scattered moles, no gross abnormalities 04/09/2015 None Full Exam - General 1994 Neurologic deep tendon reflexes Overall: deep tendon reflexes intact 04/09/2015 None Full Exam - General 1994 Neurologic cranial nerves Overall: crainial nerves 2 - 12 grossly intact 04/09/2015 None Full Exam - General 1994 Psychiatric orientation/consciousness Overall: oriented to person, place and time 04/09/2015 None Full Exam - General 1994 Psychiatric mood and affect Overall: normal mood and affect 04/09/2015 None Full Exam - General 1994 Ears/Nose/Throat otoscopic exam External auditory canal: complete cerumen impaction 04/09/2015 None Full Exam - General 1994 Constitutional general appearance Development: well developed 02/08/2015 None Full Exam - General 1994 Constitutional general appearance Development: appears stated age 1202/08/2015 None Full Exam - General 1994 Constitutional general appearance Hygiene/Attention to Grooming: good hygiene 02/08/2015 None Full Exam - General 1994 Eyes conjunctiva /eyelids Overall: conjunctiva clear 02/08/2015 None Full Exam - General 1994 Eyes conjunctiva /eyelids Overall: cornea clear 02/08/2015 None Full Exam - General 1994 Eyes conjunctiva /eyelids Overall: eyelids normal 02/08/2015 None Full Exam - General 1994 Eyes pupils and irises Overall: pupils equal, round, reactive to light and accomodation 02/08/2015 None Full Exam - General 1994 Ears/Nose/Throat otoscopic exam Overall: external auditory canals clear 02/08/2015 None Full Exam - General 1994 Ears/Nose/Throat otoscopic exam Overall: tympanic membranes clear 02/08/2015 None Full Exam - General 1994 Ears/Nose/Throat lips/teeth/gingiva Overall: benign lips 02/08/2015 None Full Exam - General 1994 Ears/Nose/Throat lips/teeth/gingiva Overall: normal dentition 02/08/2015 None Full Exam - General 1994 Ears/Nose/Throat oral cavity/pharynx/larynx Overall: oral mucosa clear 02/08/2015 None Full Exam - General 1994 Ears/Nose/Throat oral cavity/pharynx/larynx Overall: oropharyngeal mucosa clear 02/08/2015 None Full Exam - General 1994 Ears/Nose/Throat oral cavity/pharynx/larynx Overall: hypopharynx benign 02/08/2015 None Full Exam - General 1994 Ears/Nose/Throat oral cavity/pharynx/larynx Overall: no masses 02/08/2015 None Full Exam - General 1994 Respiratory auscultation Overall: breath sounds clear bilaterally 02/08/2015 None Full Exam - General 1994 Respiratory respiratory effort/rhythm Overall: no retractions 02/08/2015 None Full Exam - General 1994 Respiratory respiratory effort/rhythm Overall: normal rate 02/08/2015 None Full Exam - General 1994 Cardiovascular extremities Overall: no clubbing 02/08/2015 None Full Exam - General 1994 Cardiovascular extremities Edema present: pitting 02/08/2015 None Full Exam - General 1994 Cardiovascular extremities Edema present: severity 1+ - 4 +: 2+ 02/08/2015 None Full Exam - General 1994 Cardiovascular auscultation of heart Overall: regular rate 02/08/2015 None Full Exam - General 1994 Cardiovascular auscultation of heart Overall: normal heart sounds 02/08/2015 None Full Exam - General 1994 Abdomen abdominal exam Overall: no tenderness 02/08/2015 None Full Exam - General 1994 Abdomen abdominal exam Overall: normal bowel sounds 02/08/2015 None Full Exam - General 1994 Integument inspection of skin Overall: few scattered moles, no gross abnormalities 02/08/2015 None Full Exam - General 1994 Neurologic deep tendon reflexes Overall: deep tendon reflexes intact 02/08/2015 None Full Exam - General 1994 Neurologic cranial nerves Overall: crainial nerves 2 - 12 grossly intact 02/08/2015 None Full Exam - General 1994 Psychiatric orientation/consciousness Overall: oriented to person, place and time 02/08/2015 None Full Exam - General 1994 Psychiatric mood and affect Overall: normal mood and affect 02/08/2015 None Full Exam - General 1994 Constitutional general appearance Development: well developed 12/11/2014 None Full Exam - General 1994 Constitutional general appearance Development: appears stated age 1012/11/2014 None Full Exam - General 1994 Constitutional general appearance Hygiene/Attention to Grooming: good hygiene 12/11/2014 None Full Exam - General 1994 Eyes conjunctiva /eyelids Overall: conjunctiva clear 12/11/2014 None Full Exam - General 1994 Eyes conjunctiva /eyelids Overall: cornea clear 12/11/2014 None Full Exam - General 1994 Eyes conjunctiva /eyelids Overall: eyelids normal 12/11/2014 None Full Exam - General 1994 Eyes pupils and irises Overall: pupils equal, round, reactive to light and accomodation 12/11/2014 None Full Exam - General 1994 Ears/Nose/Throat otoscopic exam Overall: external auditory canals clear 12/11/2014 None Full Exam - General 1994 Ears/Nose/Throat otoscopic exam Overall: tympanic membranes clear 12/11/2014 None Full Exam - General 1994 Ears/Nose/Throat lips/teeth/gingiva Overall: benign lips 12/11/2014 None Full Exam - General 1994 Ears/Nose/Throat lips/teeth/gingiva Overall: normal dentition 12/11/2014 None Full Exam - General 1994 Ears/Nose/Throat oral cavity/pharynx/larynx Overall: oral mucosa clear 12/11/2014 None Full Exam - General 1994 Ears/Nose/Throat oral cavity/pharynx/larynx Overall: oropharyngeal mucosa clear 12/11/2014 None Full Exam - General 1994 Ears/Nose/Throat oral cavity/pharynx/larynx Overall: hypopharynx benign 12/11/2014 None Full Exam - General 1994 Ears/Nose/Throat oral cavity/pharynx/larynx Overall: no masses 12/11/2014 None Full Exam - General 1994 Respiratory auscultation Overall: breath sounds clear bilaterally 12/11/2014 None Full Exam - General 1994 Respiratory respiratory effort/rhythm Overall: no retractions 12/11/2014 None Full Exam - General 1994 Respiratory respiratory effort/rhythm Overall: normal rate 12/11/2014 None Full Exam - General 1994 Cardiovascular extremities Overall: no clubbing 12/11/2014 None Full Exam - General 1994 Cardiovascular extremities Edema present: pitting 12/11/2014 None Full Exam - General 1994 Cardiovascular extremities Edema present: severity 1+ - 4 +: 2+ 12/11/2014 None Full Exam - General 1994 Cardiovascular auscultation of heart Overall: regular rate 12/11/2014 None Full Exam - General 1994 Cardiovascular auscultation of heart Overall: normal heart sounds 12/11/2014 None Full Exam - General 1994 Abdomen abdominal exam Overall: no tenderness 12/11/2014 None Full Exam - General 1994 Abdomen abdominal exam Overall: normal bowel sounds 12/11/2014 None Full Exam - General 1994 Integument inspection of skin Overall: few scattered moles, no gross abnormalities 12/11/2014 None Full Exam - General 1994 Neurologic deep tendon reflexes Overall: deep tendon reflexes intact 12/11/2014 None Full Exam - General 1994 Neurologic cranial nerves Overall: crainial nerves 2 - 12 grossly intact 12/11/2014 None Full Exam - General 1994 Psychiatric orientation/consciousness Overall: oriented to person, place and time 12/11/2014 None Full Exam - General 1994 Psychiatric mood and affect Overall: normal mood and affect 12/11/2014 None Full Exam - Dermatology Constitutional general appearance Overall: well nourished 11/09/2014 None Full Exam - Dermatology Constitutional general appearance Overall: well developed 11/09/2014 None Full Exam - Dermatology Constitutional general appearance Overall: in no acute distress 11/09/2014 None Full Exam - Dermatology Constitutional general appearance Overall: of normal body habitus 11/09/2014 None Full Exam - Dermatology Constitutional general appearance Overall: well groomed 11/09/2014 None Full Exam - Dermatology Musculoskeletal digits and nails Right MCPs: third 11/09/2014 None Full Exam - Dermatology Musculoskeletal digits and nails Right MCPs: fourth 11/09/2014 None Full Exam - Dermatology Musculoskeletal digits and nails Right MCPs: fifth 11/09/2014 ulcer 5th toe medial aspect between toes 4/5. Redness noted between toes 3/4 Full Exam - Dermatology Musculoskeletal digits and nails Right MCPs: deformity 11/09/2014 None Full Exam - Dermatology Musculoskeletal digits and nails Right MCPs: decreased flexion 11/09/2014 None Full Exam - Dermatology Musculoskeletal digits and nails Right MCPs: decreased extension 11/09/2014 None Full Exam - Dermatology Integument insp & palp - right lower extremity Location: on the toes 11/09/2014 ulceration between digits #4/5 and #3/4 Full Exam - Dermatology Psychiatric orientation Overall: oriented to person, place and time 11/09/2014 None Full Exam - Dermatology Cardiovascular peripheral vascular system Edema present: pitting 11/09/2014 1-2+ Full Exam - Dermatology Respiratory respiratory effort/rhythm Overall: no retractions 11/09/2014 None Full Exam - Dermatology Respiratory respiratory effort/rhythm Overall: normal rate 11/09/2014 None Full Exam - Dermatology Constitutional general appearance Overall: well nourished 10/23/2014 None Full Exam - Dermatology Constitutional general appearance Overall: well developed 10/23/2014 None Full Exam - Dermatology Constitutional general appearance Overall: in no acute distress 10/23/2014 None Full Exam - Dermatology Constitutional general appearance Overall: of normal body habitus 10/23/2014 None Full Exam - Dermatology Constitutional general appearance Overall: well groomed 10/23/2014 None Full Exam - Dermatology Musculoskeletal digits and nails Right MCPs: third 10/23/2014 --Improved Full Exam - Dermatology Musculoskeletal digits and nails Right MCPs: fourth 10/23/2014 --Improved Full Exam - Dermatology Musculoskeletal digits and nails Right MCPs: fifth 10/23/2014 ulcer 5th toe medial aspect between toes 4/5. Redness noted between toes 3/4 Full Exam - Dermatology Musculoskeletal digits and nails Right MCPs: deformity 10/23/2014 None Full Exam - Dermatology Musculoskeletal digits and nails Right MCPs: decreased flexion 10/23/2014 None Full Exam - Dermatology Musculoskeletal digits and nails Right MCPs: decreased extension 10/23/2014 None Full Exam - Dermatology Psychiatric orientation Overall: oriented to person, place and time 10/23/2014 None Full Exam - Dermatology Integument insp & palp - right lower extremity Location: on the toes 10/23/2014 ulceration between digits #4/5 and #3/4 Full Exam - Dermatology Constitutional general appearance Overall: well nourished 10/16/2014 None Full Exam - Dermatology Constitutional general appearance Overall: well developed 10/16/2014 None Full Exam - Dermatology Constitutional general appearance Overall: in no acute distress 10/16/2014 None Full Exam - Dermatology Constitutional general appearance Overall: of normal body habitus 10/16/2014 None Full Exam - Dermatology Constitutional general appearance Overall: well groomed 10/16/2014 None Full Exam - Dermatology Musculoskeletal digits and nails Right MCPs: third 10/16/2014 None Full Exam - Dermatology Musculoskeletal digits and nails Right MCPs: fourth 10/16/2014 None Full Exam - Dermatology Musculoskeletal digits and nails Right MCPs: fifth 10/16/2014 ulcer 5th toe medial aspect between toes 4/5. Redness noted between toes 3/4 Full Exam - Dermatology Musculoskeletal digits and nails Right MCPs: deformity 10/16/2014 None Full Exam - Dermatology Musculoskeletal digits and nails Right MCPs: decreased flexion 10/16/2014 None Full Exam - Dermatology Musculoskeletal digits and nails Right MCPs: decreased extension 10/16/2014 None Full Exam - Dermatology Psychiatric orientation Overall: oriented to person, place and time 10/16/2014 None Full Exam - Dermatology Integument insp & palp - right lower extremity Location: on the toes 10/16/2014 ulceration between digits #4/5 and #3/4 Full Exam - Dermatology Constitutional general appearance Overall: well nourished 10/09/2014 None Full Exam - Dermatology Constitutional general appearance Overall: well developed 10/09/2014 None Full Exam - Dermatology Constitutional general appearance Overall: in no acute distress 10/09/2014 None Full Exam - Dermatology Constitutional general appearance Overall: of normal body habitus 10/09/2014 None Full Exam - Dermatology Constitutional general appearance Overall: well groomed 10/09/2014 None Full Exam - Dermatology Psychiatric orientation Overall: oriented to person, place and time 10/09/2014 None Full Exam - Dermatology Musculoskeletal digits and nails Right MCPs: third 10/09/2014 None Full Exam - Dermatology Musculoskeletal digits and nails Right MCPs: fourth 10/09/2014 None Full Exam - Dermatology Musculoskeletal digits and nails Right MCPs: fifth 10/09/2014 ulcer 5th toe medial aspect between toes 4/5. Redness noted between toes 3/4 Full Exam - Dermatology Musculoskeletal digits and nails Right MCPs: deformity 10/09/2014 None Full Exam - Dermatology Musculoskeletal digits and nails Right MCPs: decreased extension 10/09/2014 None Full Exam - Dermatology Musculoskeletal digits and nails Right MCPs: decreased flexion 10/09/2014 None Full Exam - General 1994 Constitutional general appearance Development: well developed 09/14/2014 None Full Exam - General 1994 Constitutional general appearance Development: appears stated age 0709/14/2014 None Full Exam - General 1994 Constitutional general appearance Hygiene/Attention to Grooming: good hygiene 09/14/2014 None Full Exam - General 1994 Eyes conjunctiva /eyelids Overall: conjunctiva clear 09/14/2014 None Full Exam - General 1994 Eyes conjunctiva /eyelids Overall: cornea clear 09/14/2014 None Full Exam - General 1994 Eyes conjunctiva /eyelids Overall: eyelids normal 09/14/2014 None Full Exam - General 1994 Eyes pupils and irises Overall: pupils equal, round, reactive to light and accomodation 09/14/2014 None Full Exam - General 1994 Ears/Nose/Throat otoscopic exam Overall: external auditory canals clear 09/14/2014 None Full Exam - General 1994 Ears/Nose/Throat otoscopic exam Overall: tympanic membranes clear 09/14/2014 None Full Exam - General 1994 Ears/Nose/Throat lips/teeth/gingiva Overall: benign lips 09/14/2014 None Full Exam - General 1994 Ears/Nose/Throat lips/teeth/gingiva Overall: normal dentition 09/14/2014 None Full Exam - General 1994 Ears/Nose/Throat oral cavity/pharynx/larynx Overall: oral mucosa clear 09/14/2014 None Full Exam - General 1994 Ears/Nose/Throat oral cavity/pharynx/larynx Overall: oropharyngeal mucosa clear 09/14/2014 None Full Exam - General 1994 Ears/Nose/Throat oral cavity/pharynx/larynx Overall: hypopharynx benign 09/14/2014 None Full Exam - General 1994 Ears/Nose/Throat oral cavity/pharynx/larynx Overall: no masses 09/14/2014 None Full Exam - General 1994 Respiratory auscultation Overall: breath sounds clear bilaterally 09/14/2014 None Full Exam - General 1994 Respiratory respiratory effort/rhythm Overall: no retractions 09/14/2014 None Full Exam - General 1994 Respiratory respiratory effort/rhythm Overall: normal rate 09/14/2014 None Full Exam - General 1994 Cardiovascular extremities Overall: no clubbing 09/14/2014 None Full Exam - General 1994 Cardiovascular extremities Edema present: pitting 09/14/2014 None Full Exam - General 1994 Cardiovascular extremities Edema present: severity 1+ - 4 +: 2+ 09/14/2014 None Full Exam - General 1994 Cardiovascular auscultation of heart Overall: regular rate 09/14/2014 None Full Exam - General 1994 Cardiovascular auscultation of heart Overall: normal heart sounds 09/14/2014 None Full Exam - General 1994 Abdomen abdominal exam Overall: no tenderness 09/14/2014 None Full Exam - General 1994 Abdomen abdominal exam Overall: normal bowel sounds 09/14/2014 None Full Exam - General 1994 Integument inspection of skin Overall: few scattered moles, no gross abnormalities 09/14/2014 None Full Exam - General 1994 Neurologic deep tendon reflexes Overall: deep tendon reflexes intact 09/14/2014 None Full Exam - General 1994 Neurologic cranial nerves Overall: crainial nerves 2 - 12 grossly intact 09/14/2014 None Full Exam - General 1994 Psychiatric orientation/consciousness Overall: oriented to person, place and time 09/14/2014 None Full Exam - General 1994 Psychiatric mood and affect Overall: normal mood and affect 09/14/2014 None Full Exam - General 1994 Constitutional general appearance Development: well developed 08/11/2014 None Full Exam - General 1994 Constitutional general appearance Development: appears stated age 0608/11/2014 None Full Exam - General 1994 Constitutional general appearance Hygiene/Attention to Grooming: good hygiene 08/11/2014 None Full Exam - General 1994 Eyes conjunctiva /eyelids Overall: conjunctiva clear 08/11/2014 None Full Exam - General 1994 Eyes conjunctiva /eyelids Overall: cornea clear 08/11/2014 None Full Exam - General 1994 Eyes conjunctiva /eyelids Overall: eyelids normal 08/11/2014 None Full Exam - General 1994 Eyes pupils and irises Overall: pupils equal, round, reactive to light and accomodation 08/11/2014 None Full Exam - General 1994 Ears/Nose/Throat otoscopic exam Overall: external auditory canals clear 08/11/2014 None Full Exam - General 1994 Ears/Nose/Throat otoscopic exam Overall: tympanic membranes clear 08/11/2014 None Full Exam - General 1994 Ears/Nose/Throat lips/teeth/gingiva Overall: benign lips 08/11/2014 None Full Exam - General 1994 Ears/Nose/Throat lips/teeth/gingiva Overall: normal dentition 08/11/2014 None Full Exam - General 1994 Ears/Nose/Throat oral cavity/pharynx/larynx Overall: oral mucosa clear 08/11/2014 None Full Exam - General 1994 Ears/Nose/Throat oral cavity/pharynx/larynx Overall: oropharyngeal mucosa clear 08/11/2014 None Full Exam - General 1994 Ears/Nose/Throat oral cavity/pharynx/larynx Overall: hypopharynx benign 08/11/2014 None Full Exam - General 1994 Ears/Nose/Throat oral cavity/pharynx/larynx Overall: no masses 08/11/2014 None Full Exam - General 1994 Respiratory auscultation Overall: breath sounds clear bilaterally 08/11/2014 None Full Exam - General 1994 Respiratory respiratory effort/rhythm Overall: no retractions 08/11/2014 None Full Exam - General 1994 Respiratory respiratory effort/rhythm Overall: normal rate 08/11/2014 None Full Exam - General 1994 Cardiovascular extremities Overall: no clubbing 08/11/2014 None Full Exam - General 1994 Cardiovascular auscultation of heart Overall: regular rate 08/11/2014 None Full Exam - General 1994 Cardiovascular auscultation of heart Overall: normal heart sounds 08/11/2014 None Full Exam - General 1994 Abdomen abdominal exam Overall: no tenderness 08/11/2014 None Full Exam - General 1994 Abdomen abdominal exam Overall: normal bowel sounds 08/11/2014 None Full Exam - General 1994 Integument inspection of skin Overall: few scattered moles, no gross abnormalities 08/11/2014 None Full Exam - General 1994 Neurologic deep tendon reflexes Overall: deep tendon reflexes intact 08/11/2014 None Full Exam - General 1994 Neurologic cranial nerves Overall: crainial nerves 2 - 12 grossly intact 08/11/2014 None Full Exam - General 1994 Psychiatric orientation/consciousness Overall: oriented to person, place and time 08/11/2014 None Full Exam - General 1994 Psychiatric mood and affect Overall: normal mood and affect 08/11/2014 None Full Exam - General 1994 Cardiovascular extremities Edema present: pitting 08/11/2014 None Full Exam - General 1994 Cardiovascular extremities Edema present: severity 1+ - 4 +: 2+ 08/11/2014 None Full Exam - General 1994 Constitutional general appearance Development: appears stated age 0507/12/2014 None Full Exam - General 1994 Constitutional general appearance Development: well developed 07/12/2014 None Full Exam - General 1994 Constitutional general appearance Hygiene/Attention to Grooming: good hygiene 07/12/2014 None Full Exam - General 1994 Eyes conjunctiva /eyelids Overall: conjunctiva clear 07/12/2014 None Full Exam - General 1994 Eyes conjunctiva /eyelids Overall: cornea clear 07/12/2014 None Full Exam - General 1994 Eyes conjunctiva /eyelids Overall: eyelids normal 07/12/2014 None Full Exam - General 1994 Eyes pupils and irises Overall: pupils equal, round, reactive to light and accomodation 07/12/2014 None Full Exam - General 1994 Ears/Nose/Throat otoscopic exam Overall: external auditory canals clear 07/12/2014 None Full Exam - General 1994 Ears/Nose/Throat otoscopic exam Overall: tympanic membranes clear 07/12/2014 None Full Exam - General 1994 Ears/Nose/Throat lips/teeth/gingiva Overall: benign lips 07/12/2014 None Full Exam - General 1994 Ears/Nose/Throat lips/teeth/gingiva Overall: normal dentition 07/12/2014 None Full Exam - General 1994 Ears/Nose/Throat oral cavity/pharynx/larynx Overall: hypopharynx benign 07/12/2014 None Full Exam - General 1994 Ears/Nose/Throat oral cavity/pharynx/larynx Overall: no masses 07/12/2014 None Full Exam - General 1994 Ears/Nose/Throat oral cavity/pharynx/larynx Overall: oral mucosa clear 07/12/2014 None Full Exam - General 1994 Ears/Nose/Throat oral cavity/pharynx/larynx Overall: oropharyngeal mucosa clear 07/12/2014 None Full Exam - General 1994 Respiratory auscultation Overall: breath sounds clear bilaterally 07/12/2014 None Full Exam - General 1994 Respiratory respiratory effort/rhythm Overall: no retractions 07/12/2014 None Full Exam - General 1994 Respiratory respiratory effort/rhythm Overall: normal rate 07/12/2014 None Full Exam - General 1994 Cardiovascular extremities Overall: no clubbing 07/12/2014 None Full Exam - General 1994 Cardiovascular auscultation of heart Overall: normal heart sounds 07/12/2014 None Full Exam - General 1994 Cardiovascular auscultation of heart Overall: regular rate 07/12/2014 None Full Exam - General 1994 Abdomen abdominal exam Overall: no tenderness 07/12/2014 None Full Exam - General 1994 Abdomen abdominal exam Overall: normal bowel sounds 07/12/2014 None Full Exam - General 1994 Integument inspection of skin Overall: few scattered moles, no gross abnormalities 07/12/2014 None Full Exam - General 1994 Neurologic deep tendon reflexes Overall: deep tendon reflexes intact 07/12/2014 None Full Exam - General 1994 Neurologic cranial nerves Overall: crainial nerves 2 - 12 grossly intact 07/12/2014 None Full Exam - General 1994 Psychiatric orientation/consciousness Overall: oriented to person, place and time 07/12/2014 None Full Exam - General 1994 Psychiatric mood and affect Overall: normal mood and affect 07/12/2014 None Procedures Procedure Codes Date DRAIN/INJECT JOINT/BURSA CPT-4: 96249 04/02/2017 TRIAMCINOLONE ACET INJ NOS CPT-4: J3301 04/02/2017 DRAIN/INJECT JOINT/BURSA CPT-4: 32425 02/06/2017 ADMIN INFLUENZA VIRUS VAC CPT-4: G0008 12/08/2016 FLU VACC PRSV FREE INC ANTIG CPT-4: 39524 12/08/2016 PRESCRIP TRANSMIT VIA ERX SY CPT-4: G8553 12/08/2016 PRESCRIP TRANSMIT VIA ERX SY CPT-4: G8553 11/17/2016 TRIAMCINOLONE ACET INJ NOS CPT-4: J3301 10/02/2016 TRIAMCINOLONE ACET INJ NOS CPT-4: J3301 09/12/2016 DRAIN/INJECT JOINT/BURSA CPT-4: 15951 09/08/2016 TRIAMCINOLONE ACET INJ NOS CPT-4: J3301 09/08/2016 PRESCRIP TRANSMIT VIA ERX SY CPT-4: G8553 08/26/2016 PRESCRIP TRANSMIT VIA ERX SY CPT-4: G8553 08/18/2016 ADMIN INFLUENZA VIRUS VAC CPT-4: G0008 11/19/2015 FLU VACC PRSV FREE INC ANTIG Formatting Model/CDA Sections, Assigned to/Luanne Elaine CPT-4: 20461Bivcmzs 11/19/2015 PRESCRIP TRANSMIT VIA ERX SY CPT-4: G8553 09/04/2015 PRESCRIP TRANSMIT VIA ERX SY CPT-4: G8553 2015 PRESCRIP TRANSMIT VIA ERX SY CPT-4: G8553 07/18/2015 PRESCRIP TRANSMIT VIA ERX SY CPT-4: G8553 07/02/2015 REMOVE IMPACTED EAR WAX UNI CPT-4: 25099 04/09/2015 PRESCRIP TRANSMIT VIA ERX SY CPT-4: G8553 02/08/2015 ADMIN INFLUENZA VIRUS VAC CPT-4: G0008 01/10/2015 FLU VACC PRSV FREE INC ANTIG Formatting Model/CDA Sections, Assigned to/Luanne Elaine CPT-4: 47744Bkcqktt 01/10/2015 ADMIN PNEUMOCOCCAL VACCINE Formatting Model/CDA Sections, Assigned to SNOMED CT: 69502671 CPT-4: N3449Fqpwtcd 12/11/2014 PNEUMOCOCCAL VACC [address]: 22882484 CPT-4: 31016 12/11/2014 Vital Signs Date Vital 04/02/2017 Blood Pressure 1: 164/80 Code : 8480-6 BMI: 23.1 Code : 41692-4 Heart Rate 1 : 76 bpm Height: 5'8" SpO2: 94% Weight: 150 lbs 03/12/2017 Blood Pressure 1: 130/74 Code : 8480-6 BMI: 23.0 Code : 42025-3 Heart Rate 1 : 92 bpm Height: 5'8" SpO2: 94% Weight: 149 lbs 02/06/2017 Height: Weight: 01/08/2017 Blood Pressure 1: 136/76 Code : 8480-6 BMI: 21.4 Code : 51451-9 Heart Rate 1 : 85 bpm Height: 5'8" SpO2: 98% Weight: 138 lbs 8 oz 12/08/2016 Blood Pressure 1: 132/66 Code : 8480-6 BMI: 22.2 Code : 73229-5 Heart Rate 1 : 106 bpm Height: 5'8" SpO2: 97% Weight: 144 lbs 11/17/2016 Blood Pressure 1: 146/80 Code : 8480-6 BMI: 22.4 Code : 87547-7 Heart Rate 1 : 100 bpm Height: 5'8" SpO2: 98% Weight: 145 lbs 11/10/2016 Blood Pressure 1: 122/62 Code : 8480-6 BMI: 22.2 Code : 81141-2 Height: 5'8" Weight: 144 lbs 11/05/2016 Blood Pressure 1: 146/80 Code : 8480-6 BMI: 22.2 Code : 59521-9 Heart Rate 1 : 77 bpm Height: 5'8" SpO2: 99% Weight: 144 lbs 10/07/2016 Blood Pressure 1: 132/68 Code : 8480-6 BMI: 22.8 Code : 06863-0 Heart Rate 1 : 90 bpm Height: 5'8" SpO2: 97% Weight: 148 lbs 10/02/2016 Blood Pressure 1: 166/86 Code : 8480-6 BMI: 22.8 Code : 89204-7 Heart Rate 1 : 96 bpm Height: 5'8" SpO2: 96% Weight: 148 lbs 09/12/2016 Blood Pressure 1: 130/86 Code : 8480-6 Height: Weight: 09/08/2016 Blood Pressure 1: 132/74 Code : 8480-6 BMI: 22.4 Code : 87881-7 Heart Rate 1 : 93 bpm Height: 5'8" SpO2: 99% Weight: 145 lbs 08/26/2016 Blood Pressure 1: 132/78 Code : 8480-6 BMI: 23.9 Code : 93309-7 Heart Rate 1 : 80 bpm Height: 5'8" SpO2: 94% Weight: 155 lbs 08/18/2016 Blood Pressure 1: 130/70 Code : 8480-6 BMI: 23.6 Code : 54397-5 Heart Rate 1 : 100 bpm Height: 5'8" SpO2: 94% Weight: 153 lbs 07/30/2016 Blood Pressure 1: 144/84 Code : 8480-6 BMI: 22.4 Code : 91131-0 Heart Rate 1 : 86 bpm Height: 5'8" SpO2: 97% Weight: 145 lbs 07/14/2016 Blood Pressure 1: 122/74 Code : 8480-6 BMI: 22.5 Code : 37369-7 Heart Rate 1 : 87 bpm Height: 5'8" SpO2: 97% Weight: 146 lbs 07/04/2016 Blood Pressure 1: 128/78 Code : 8480-6 BMI: 22.5 Code : 28434-4 Heart Rate 1 : 98 bpm Height: 5'8" Weight: 146 lbs 06/26/2016 Blood Pressure 1: 122/68 Code : 8480-6 BMI: 22.5 Code : 44644-0 Heart Rate 1 : 102 bpm Height: 5'8" SpO2: 98% Weight: 146 lbs 05/28/2016 Blood Pressure 1: 122/68 Code : 8480-6 BMI: 22.4 Code : 63680-7 Heart Rate 1 : 89 bpm Height: 5'8" SpO2: 97% Weight: 145 lbs 03/18/2016 Blood Pressure 1: 132/66 Code : 8480-6 BMI: 22.8 Code : 55422-6 Heart Rate 1 : 96 bpm Height: 5'8" SpO2: 98% Weight: 148 lbs 01/29/2016 Blood Pressure 1: 122/66 Code : 8480-6 BMI: 22.2 Code : 96210-9 Heart Rate 1 : 90 bpm Height: 5'8" SpO2: 99% Weight: 144 lbs 01/01/2016 Blood Pressure 1: 148/82 Code : 8480-6 BMI: 22.5 Code : 33100-1 Heart Rate 1 : 82 bpm Height: 5'8" Weight: 146 lbs 11/19/2015 Blood Pressure 1: 140/74 Code : 8480-6 BMI: 23.7 Code : 17237-1 Heart Rate 1 : 79 bpm Height: 5'8" SpO2: 96% Weight: 153 lbs 8 oz 11/01/2015 Blood Pressure 1: 118/72 Code : 8480-6 Heart Rate 1: 90 bpm Height: 5'8" SpO2: 95% 09/04/2015 Blood Pressure 1: 136/72 Code : 8480-6 BMI: 23.1 Code : 47527-4 Heart Rate 1 : 97 bpm Height: 5'8" SpO2: 98% Weight: 149 lbs 8 oz 2015 Blood Pressure 1: 144/76 Code : 8480-6 BMI: 22.8 Code : 58831-3 Heart Rate 1 : 75 bpm Height: 5'8" SpO2: 97% Weight: 148 lbs 07/18/2015 Blood Pressure 1: 132/60 Code : 8480-6 BMI: 23.1 Code : 72908-0 Heart Rate 1 : 78 bpm Height: 5'8" Weight: 150 lbs 07/02/2015 Blood Pressure 1: 156/86 Code : 8480-6 BMI: 23.0 Code : 74828-4 Heart Rate 1 : 75 bpm Height: 5'8" SpO2: 99% Weight: 149 lbs 05/31/2015 Blood Pressure 1: 136/72 Code : 8480-6 BMI: 22.7 Code : 88769-2 Heart Rate 1 : 85 bpm Height: 5'8" SpO2: 97% Weight: 147 lbs 04/09/2015 Blood Pressure 1: 118/60 Code : 8480-6 BMI: 22.7 Code : 55776-0 Heart Rate 1 : 72 bpm Height: 5'8" SpO2: 95% Weight: 147 lbs 02/08/2015 Blood Pressure 1: 138/76 Code : 8480-6 BMI: 23.1 Code : 81513-6 Heart Rate 1 : 80 bpm Height: 5'8" SpO2: 98% Weight: 150 lbs 12/11/2014 Blood Pressure 1: 120/74 Code : 8480-6 BMI: 22.1 Code : 61729-0 Heart Rate 1 : 92 bpm Height: 5'8" SpO2: 96% Weight: 143 lbs 11/09/2014 Blood Pressure 1: 100/64 Code : 8480-6 BMI: 21.6 Code : 27750-8 Heart Rate 1 : 88 bpm Height: 5'8" Weight: 140 lbs 10/23/2014 Blood Pressure 1: 138/82 Code : 8480-6 BMI: 23.6 Code : 58454-6 Heart Rate 1 : 86 bpm Height: 5'8" Weight: 153 lbs 10/16/2014 Blood Pressure 1: 128/60 Code : 8480-6 BMI: 23.3 Code : 19980-7 Heart Rate 1 : 91 bpm Height: 5'8" SpO2: 99% Weight: 151 lbs 10/09/2014 Blood Pressure 1: 120/60 Code : 8480-6 BMI: 23.0 Code : 31447-5 Heart Rate 1 : 96 bpm Height: 5'8" SpO2: 97% Weight: 149 lbs 09/14/2014 Blood Pressure 1: 132/72 Code : 8480-6 BMI: 22.1 Code : 12009-2 Heart Rate 1 : 84 bpm Height: 5'8" SpO2: 97% Weight: 143 lbs 08/11/2014 Blood Pressure 1: 134/74 Code : 8480-6 BMI: 24.1 Code : 43956-6 Heart Rate 1 : 88 bpm Height: 5'8" Weight: 156 lbs 07/12/2014 Blood Pressure 1: 122/62 Code : 8480-6 BMI: 22.7 Code : 31267-5 Heart Rate 1 : 76 bpm Height: 5'8" Weight: 147 lbs Functional Status No Functional Status data History of Present Illness Symptom Name Status Result Effective Date Notes shoulder pain Location on both shoulders 04/02/2017 None shoulder pain Location on the right shoulder 04/02/2017 None shoulder pain Location on the left shoulder 04/02/2017 None shoulder pain Quality aching 04/02/2017 None shoulder pain Quality constant 04/02/2017 None shoulder pain Quality throbbing 04/02/2017 None shoulder pain Onset and Resolution ongoing 04/02/2017 None shoulder pain Onset of Symptom _ months ago 04/02/2017 None shoulder pain Limitation on Activities moderately limits activities 04/02/2017 None shoulder pain Pertinent Findings limited range of motion 04/02/2017 None shoulder pain Pertinent Findings point tenderness 04/02/2017 None shoulder pain Pertinent Findings stiffness 04/02/2017 None shoulder pain Pertinent Findings swelling 04/02/2017 R shoulder shoulder pain Pertinent Findings loss of range of motion 04/02/2017 None shoulder pain Pertinent Findings loss of strength 04/02/2017 None shoulder pain Quality constant 03/12/2017 None shoulder pain Onset and Resolution ongoing 03/12/2017 None muscle weakness Onset and Resolution ongoing 03/12/2017 None muscle weakness Limitation on Activities moderately limits activities 03/12/2017 None pain, generalized Quality chronic 03/12/2017 None pain, generalized Onset and Resolution ongoing 03/12/2017 None pain, generalized Alleviating Factors medication 03/12/2017 None pain, generalized Exacerbating Factors exertion 03/12/2017 None weight loss Quality acute 03/12/2017 None weight loss Onset and Resolution sudden in onset 03/12/2017 None weight loss Weight Status has lost 6 pounds in 4 weeks 03/12/2017 None weight loss Weight Status has a five to ten pound total weight loss 03/12/2017 None weight loss Diet decreased intake 03/12/2017 None weight loss Triggers change in diet 03/12/2017 None weight loss Triggers no known associated factors 03/12/2017 None weight loss Triggers unintentional weight loss 03/12/2017 None weight loss Pertinent Findings Denies depressed mood 03/12/2017 None weight loss Pertinent Findings heartburn 03/12/2017 None weight loss Pertinent Findings Denies nausea 03/12/2017 None shoulder pain Location on both shoulders 03/12/2017 None shoulder pain Location on the right shoulder 03/12/2017 None shoulder pain Location on the left shoulder 03/12/2017 None shoulder pain Quality aching 03/12/2017 None shoulder pain Quality throbbing 03/12/2017 None shoulder pain Onset of Symptom _ months ago 03/12/2017 None shoulder pain Limitation on Activities moderately limits activities 03/12/2017 None shoulder pain Mechanism of injury unknown 03/12/2017 None shoulder pain Pertinent Findings limited range of motion 03/12/2017 None shoulder pain Pertinent Findings point tenderness 03/12/2017 None shoulder pain Pertinent Findings stiffness 03/12/2017 None shoulder pain Pertinent Findings swelling 03/12/2017 R shoulder shoulder pain Pertinent Findings loss of range of motion 03/12/2017 None shoulder pain Pertinent Findings loss of strength 03/12/2017 None shoulder pain Quality constant 01/08/2017 None shoulder pain Onset and Resolution ongoing 01/08/2017 None muscle weakness Onset and Resolution ongoing 01/08/2017 None muscle weakness Limitation on Activities moderately limits activities 01/08/2017 None pain, generalized Quality chronic 01/08/2017 None pain, generalized Onset and Resolution ongoing 01/08/2017 None pain, generalized Alleviating Factors medication 01/08/2017 None pain, generalized Exacerbating Factors exertion 01/08/2017 None weight loss Quality acute 01/08/2017 None weight loss Onset and Resolution sudden in onset 01/08/2017 None weight loss Diet decreased intake 01/08/2017 None weight loss Triggers change in diet 01/08/2017 None weight loss Triggers no known associated factors 01/08/2017 None weight loss Triggers unintentional weight loss 01/08/2017 None weight loss Pertinent Findings Denies depressed mood 01/08/2017 None weight loss Pertinent Findings heartburn 01/08/2017 None weight loss Pertinent Findings Denies nausea 01/08/2017 None weight loss Weight Status has lost 6 pounds in 4 weeks 01/08/2017 None weight loss Weight Status has a five to ten pound total weight loss 01/08/2017 None shoulder pain Quality constant 12/08/2016 None shoulder pain Onset and Resolution ongoing 12/08/2016 None muscle weakness Onset and Resolution ongoing 12/08/2016 None muscle weakness Limitation on Activities moderately limits activities 12/08/2016 None pain, generalized Quality chronic 12/08/2016 None pain, generalized Onset and Resolution ongoing 12/08/2016 None pain, generalized Exacerbating Factors exertion 12/08/2016 None pain, generalized Alleviating Factors medication 12/08/2016 None shoulder pain Quality constant 11/17/2016 None shoulder pain Onset and Resolution ongoing 11/17/2016 None muscle weakness Onset and Resolution ongoing 11/17/2016 None muscle weakness Limitation on Activities moderately limits activities 11/17/2016 None pain, generalized Quality chronic 11/17/2016 None pain, generalized Onset and Resolution ongoing 11/17/2016 None pain, generalized Alleviating Factors rest 11/17/2016 None pain, generalized Exacerbating Factors exertion 11/17/2016 None shoulder pain Quality constant 11/10/2016 None shoulder pain Onset and Resolution ongoing 11/10/2016 None muscle weakness Onset and Resolution ongoing 11/10/2016 None muscle weakness Limitation on Activities moderately limits activities 11/10/2016 None pain, generalized Quality chronic 11/10/2016 None pain, generalized Onset and Resolution ongoing 11/10/2016 None pain, generalized Alleviating Factors rest 11/10/2016 None pain, generalized Exacerbating Factors exertion 11/10/2016 None shoulder pain Quality constant 11/05/2016 None shoulder pain Onset and Resolution ongoing 11/05/2016 None muscle weakness Onset and Resolution ongoing 11/05/2016 None muscle weakness Limitation on Activities moderately limits activities 11/05/2016 None pain, generalized Quality chronic 11/05/2016 None pain, generalized Onset and Resolution ongoing 11/05/2016 None pain, generalized Alleviating Factors rest 11/05/2016 None pain, generalized Exacerbating Factors exertion 11/05/2016 None Hospital Follow Up _ Other: _ 10/07/2016 None Hospital Follow Up Onset of Symptom 2 weeks ago 10/07/2016 None shoulder pain Quality acute 10/02/2016 None shoulder pain Quality constant 10/02/2016 None shoulder pain Quality sharp 10/02/2016 None shoulder pain Quality tenderness 10/02/2016 None shoulder pain Onset and Resolution sudden in onset 10/02/2016 None shoulder pain Onset and Resolution ongoing 10/02/2016 None shoulder pain Onset of Symptom 3-4 days ago 10/02/2016 None shoulder pain Limitation on Activities moderately limits activities 10/02/2016 None shoulder pain Exacerbating Factors exertion 10/02/2016 None shoulder pain Pertinent Findings Denies dyspnea 10/02/2016 None shoulder pain Pertinent Findings Denies fever 10/02/2016 None shoulder pain Pertinent Findings limited range of motion 10/02/2016 None shoulder pain Pertinent Findings stiffness 10/02/2016 None shoulder pain Pertinent Findings swelling 10/02/2016 None shoulder pain Pertinent Findings weight loss 10/02/2016 None shoulder pain Pertinent Findings loss of range of motion 10/02/2016 None shoulder pain Location on the right shoulder 10/02/2016 None shoulder pain Frequency of Episodes increasing 10/02/2016 None shoulder pain Mechanism of injury unknown 10/02/2016 None shoulder pain Triggers activity 10/02/2016 None sciatica Location on the right 09/12/2016 None sciatica Quality acute 09/12/2016 None sciatica Onset and Resolution ongoing 09/12/2016 None sciatica Limitation on Activities does not limit activities 09/12/2016 None sciatica Frequency of Episodes increasing 09/12/2016 None sciatica Triggers activity 09/12/2016 None sciatica Alleviating Factors medication 09/12/2016 None sciatica Pertinent Findings Denies fever 09/12/2016 None sciatica Pertinent Findings low back pain 09/12/2016 None sciatica Pertinent Findings osteoarthritis 09/12/2016 None sciatica Pertinent Findings stiffness 09/12/2016 None sciatica Pertinent Findings Denies weakness 09/12/2016 None shoulder pain Location on the left shoulder 09/08/2016 None shoulder pain Quality acute 09/08/2016 None shoulder pain Quality sharp 09/08/2016 None shoulder pain Quality tenderness 09/08/2016 None shoulder pain Onset and Resolution sudden in onset 09/08/2016 None shoulder pain Onset of Symptom 3-4 days ago 09/08/2016 None shoulder pain Limitation on Activities moderately limits activities 09/08/2016 None shoulder pain Pertinent Findings Denies dyspnea 09/08/2016 None shoulder pain Pertinent Findings Denies fever 09/08/2016 None shoulder pain Pertinent Findings stiffness 09/08/2016 None shoulder pain Pertinent Findings swelling 09/08/2016 None shoulder pain Quality constant 09/08/2016 None shoulder pain Onset and Resolution ongoing 09/08/2016 None shoulder pain Pertinent Findings loss of range of motion 09/08/2016 None shoulder pain Pertinent Findings limited range of motion 09/08/2016 None shoulder pain Pertinent Findings weight loss 09/08/2016 None shoulder pain Exacerbating Factors exertion 09/08/2016 None urinary frequency Quality acute 08/26/2016 None urinary frequency Pertinent Findings Denies bladder pain 08/26/2016 None urinary frequency Pertinent Findings Denies fever 08/26/2016 None urinary frequency Pertinent Findings Denies nausea 08/26/2016 None edema Quality intermittent 08/26/2016 None edema Onset and Resolution gradual in onset 08/26/2016 None edema Onset of Symptom 4 days ago 08/26/2016 None edema Pertinent Findings Denies back pain 08/26/2016 None edema Pertinent Findings Denies dyspnea 08/26/2016 None edema Pertinent Findings Denies nausea 08/26/2016 None urinary frequency Onset and Resolution ongoing 08/26/2016 None urinary frequency Onset of Symptom 6 weeks ago 08/26/2016 None urinary frequency Quality acute 08/18/2016 None urinary frequency Onset and Resolution ongoing 08/18/2016 None urinary frequency Onset of Symptom 1 months ago 08/18/2016 None urinary frequency Pertinent Findings Denies bladder pain 08/18/2016 None urinary frequency Pertinent Findings Denies fever 08/18/2016 None urinary frequency Pertinent Findings Denies nausea 08/18/2016 None edema Quality intermittent 08/18/2016 None edema Onset and Resolution gradual in onset 08/18/2016 None edema Onset of Symptom 4 days ago 08/18/2016 None edema Pertinent Findings Denies back pain 08/18/2016 None edema Pertinent Findings Denies dyspnea 08/18/2016 None edema Pertinent Findings Denies nausea 08/18/2016 None Hospital Follow Up _ Other: UTI, hypovolemia 07/30/2016 None Hospital Follow Up Quality acute 07/30/2016 None Hospital Follow Up Onset and Resolution ongoing 07/30/2016 None Hospital Follow Up Pertinent Findings pain 07/30/2016 None Hospital Follow Up Pertinent Findings Denies fever 07/30/2016 None shoulder pain Location on the left shoulder 07/14/2016 None shoulder pain Quality acute 07/14/2016 None shoulder pain Quality sharp 07/14/2016 None shoulder pain Quality tenderness 07/14/2016 None shoulder pain Onset and Resolution sudden in onset 07/14/2016 None shoulder pain Onset of Symptom 3-4 days ago 07/14/2016 None shoulder pain Limitation on Activities moderately limits activities 07/14/2016 None shoulder pain Pertinent Findings Denies dyspnea 07/14/2016 None shoulder pain Pertinent Findings Denies fever 07/14/2016 None shoulder pain Pertinent Findings stiffness 07/14/2016 None shoulder pain Pertinent Findings swelling 07/14/2016 None shoulder pain Location on the left shoulder 07/04/2016 None shoulder pain Quality acute 07/04/2016 None shoulder pain Quality sharp 07/04/2016 None shoulder pain Quality tenderness 07/04/2016 None shoulder pain Onset and Resolution sudden in onset 07/04/2016 None shoulder pain Onset of Symptom 3-4 days ago 07/04/2016 None shoulder pain Limitation on Activities moderately limits activities 07/04/2016 None shoulder pain Mechanism of injury unknown 07/04/2016 None shoulder pain Pertinent Findings Denies dyspnea 07/04/2016 None shoulder pain Pertinent Findings Denies fever 07/04/2016 None shoulder pain Pertinent Findings swelling 07/04/2016 None shoulder pain Pertinent Findings stiffness 07/04/2016 None muscle weakness Onset and Resolution ongoing 06/26/2016 None muscle weakness Limitation on Activities moderately limits activities 06/26/2016 None muscle weakness Frequency of Episodes unchanged 06/26/2016 (fluctuates) pain, generalized Quality chronic 06/26/2016 None pain, generalized Quality constant 06/26/2016 None pain, generalized Onset and Resolution gradual in onset 06/26/2016 None pain, generalized Onset and Resolution ongoing 06/26/2016 None pain, generalized Limitation on Activities moderately limits activities 06/26/2016 None pain, generalized Alleviating Factors rest 06/26/2016 None pain, generalized Alleviating Factors medication 06/26/2016 oxycodone pain, generalized Exacerbating Factors exertion 06/26/2016 None joint complaint Location diffusely 06/26/2016 None joint complaint Quality chronic 06/26/2016 None joint complaint Quality intermittent 06/26/2016 None joint complaint Onset and Resolution ongoing 06/26/2016 None neck pain Location on the right 06/26/2016 None neck pain Quality intermittent 06/26/2016 --hurts most of the day neck pain Quality throbbing 06/26/2016 None neck pain Quality tingling 06/26/2016 None neck pain Onset and Resolution ongoing 06/26/2016 None neck pain Limitation on Activities moderately limits activities 06/26/2016 None neck pain Alleviating Factors medication 06/26/2016 None neck pain Pertinent Findings right arm weakness 06/26/2016 None muscle weakness Quality intermittent 06/26/2016 None muscle weakness Location diffusely 06/26/2016 None muscle weakness Quality intermittent 05/28/2016 None muscle weakness Onset and Resolution ongoing 05/28/2016 None muscle weakness Limitation on Activities moderately limits activities 05/28/2016 None muscle weakness Frequency of Episodes unchanged 05/28/2016 (fluctuates) pain, generalized Quality chronic 05/28/2016 None pain, generalized Quality constant 05/28/2016 None pain, generalized Onset and Resolution gradual in onset 05/28/2016 None pain, generalized Onset and Resolution ongoing 05/28/2016 None pain, generalized Limitation on Activities moderately limits activities 05/28/2016 None pain, generalized Alleviating Factors rest 05/28/2016 None pain, generalized Alleviating Factors medication 05/28/2016 oxycodone pain, generalized Exacerbating Factors exertion 05/28/2016 None joint complaint Location diffusely 05/28/2016 None joint complaint Quality chronic 05/28/2016 None joint complaint Quality intermittent 05/28/2016 None joint complaint Onset and Resolution ongoing 05/28/2016 None neck pain Location on the right 05/28/2016 None neck pain Quality intermittent 05/28/2016 --hurts most of the day neck pain Quality throbbing 05/28/2016 None neck pain Quality tingling 05/28/2016 None neck pain Onset and Resolution ongoing 05/28/2016 None neck pain Limitation on Activities moderately limits activities 05/28/2016 None neck pain Alleviating Factors medication 05/28/2016 None neck pain Pertinent Findings right arm weakness 05/28/2016 None muscle weakness Quality intermittent 03/18/2016 None muscle weakness Onset and Resolution ongoing 03/18/2016 None muscle weakness Limitation on Activities moderately limits activities 03/18/2016 None muscle weakness Frequency of Episodes unchanged 03/18/2016 fluctuates pain, generalized Quality chronic 03/18/2016 None pain, generalized Quality constant 03/18/2016 None pain, generalized Onset and Resolution gradual in onset 03/18/2016 None pain, generalized Onset and Resolution ongoing 03/18/2016 None pain, generalized Limitation on Activities moderately limits activities 03/18/2016 None pain, generalized Alleviating Factors rest 03/18/2016 None pain, generalized Alleviating Factors medication 03/18/2016 oxycodone pain, generalized Exacerbating Factors exertion 03/18/2016 None joint complaint Location diffusely 03/18/2016 None joint complaint Quality chronic 03/18/2016 None joint complaint Quality intermittent 03/18/2016 None joint complaint Onset and Resolution ongoing 03/18/2016 None neck pain Location on the right 03/18/2016 None neck pain Quality intermittent 03/18/2016 --hurts most of the day neck pain Quality throbbing 03/18/2016 None neck pain Quality tingling 03/18/2016 None neck pain Onset and Resolution ongoing 03/18/2016 None neck pain Limitation on Activities moderately limits activities 03/18/2016 None neck pain Alleviating Factors medication 03/18/2016 None neck pain Pertinent Findings right arm weakness 03/18/2016 None muscle weakness Onset and Resolution ongoing 01/29/2016 None muscle weakness Limitation on Activities moderately limits activities 01/29/2016 None muscle weakness Frequency of Episodes unchanged 01/29/2016 fluctuates pain, generalized Quality chronic 01/29/2016 None pain, generalized Quality constant 01/29/2016 None pain, generalized Onset and Resolution gradual in onset 01/29/2016 None pain, generalized Onset and Resolution ongoing 01/29/2016 None pain, generalized Limitation on Activities moderately limits activities 01/29/2016 None pain, generalized Alleviating Factors rest 01/29/2016 None pain, generalized Alleviating Factors medication 01/29/2016 oxycodone pain, generalized Exacerbating Factors exertion 01/29/2016 None joint complaint Location diffusely 01/29/2016 None joint complaint Quality chronic 01/29/2016 None joint complaint Quality intermittent 01/29/2016 None joint complaint Onset and Resolution ongoing 01/29/2016 None neck pain Quality intermittent 01/29/2016 --hurts most of the day neck pain Quality throbbing 01/29/2016 None neck pain Quality tingling 01/29/2016 None neck pain Location on the right 01/29/2016 None neck pain Limitation on Activities moderately limits activities 01/29/2016 None neck pain Onset and Resolution ongoing 01/29/2016 None neck pain Alleviating Factors medication 01/29/2016 None muscle weakness Quality intermittent 01/29/2016 None Hospital Follow Up _ Other: bowl obstruction 01/01/2016 None muscle weakness Quality stable 01/01/2016 None muscle weakness Onset and Resolution gradual in onset 01/01/2016 None muscle weakness Onset and Resolution ongoing 01/01/2016 None muscle weakness Limitation on Activities moderately limits activities 01/01/2016 None neck pain Quality acute 01/01/2016 None neck pain Quality throbbing 01/01/2016 None neck pain Quality tingling 01/01/2016 None neck pain Quality intermittent 01/01/2016 None muscle weakness Quality stable 11/19/2015 None muscle weakness Onset and Resolution gradual in onset 11/19/2015 None muscle weakness Onset and Resolution ongoing 11/19/2015 None muscle weakness Limitation on Activities moderately limits activities 11/19/2015 None muscle weakness Frequency of Episodes unchanged 11/19/2015 fluctuates pain, generalized Quality chronic 11/19/2015 None pain, generalized Quality constant 11/19/2015 None pain, generalized Onset and Resolution gradual in onset 11/19/2015 None pain, generalized Onset and Resolution ongoing 11/19/2015 None pain, generalized Limitation on Activities moderately limits activities 11/19/2015 None pain, generalized Frequency of Episodes increasing 11/19/2015 None pain, generalized Alleviating Factors rest 11/19/2015 None pain, generalized Alleviating Factors medication 11/19/2015 oxycodone pain, generalized Exacerbating Factors exertion 11/19/2015 None joint complaint Location diffusely 11/19/2015 None joint complaint Quality chronic 11/19/2015 None joint complaint Quality intermittent 11/19/2015 None joint complaint Onset and Resolution ongoing 11/19/2015 None joint complaint Frequency of Episodes increasing 11/19/2015 None neck pain Quality intermittent 11/19/2015 None neck pain Quality throbbing 11/19/2015 None neck pain Quality tingling 11/19/2015 None neck pain Quality acute 11/19/2015 None neck pain Onset of Symptom 1+ months ago 11/19/2015 None hearing loss Location in both ears 11/19/2015 None hearing loss Onset and Resolution gradual in onset 11/19/2015 None hearing loss Onset and Resolution ongoing 11/19/2015 None hearing loss Quality worsening 11/19/2015 None rash Location-Major on the arms 11/01/2015 None rash Quality new 10/31 None rash Color erythematous 11/01/2015 None rash Pertinent Findings Denies itching 11/01/2015 None rash Pertinent Findings Denies pain 11/01/2015 None muscle weakness Quality stable 09/04/2015 None muscle weakness Onset and Resolution gradual in onset 09/04/2015 None muscle weakness Onset and Resolution ongoing 09/04/2015 None muscle weakness Limitation on Activities moderately limits activities 09/04/2015 None muscle weakness Frequency of Episodes unchanged 09/04/2015 fluctuates pain, generalized Quality chronic 09/04/2015 None pain, generalized Quality constant 09/04/2015 None pain, generalized Onset and Resolution gradual in onset 09/04/2015 None pain, generalized Onset and Resolution ongoing 09/04/2015 None pain, generalized Limitation on Activities moderately limits activities 09/04/2015 None pain, generalized Alleviating Factors rest 09/04/2015 None pain, generalized Alleviating Factors medication 09/04/2015 oxycodone pain, generalized Exacerbating Factors exertion 09/04/2015 None joint complaint Location diffusely 09/04/2015 None joint complaint Quality chronic 09/04/2015 None joint complaint Quality intermittent 09/04/2015 None joint complaint Onset and Resolution ongoing 09/04/2015 None abnormal bleeding and bruising Location on the left arm 09/04/2015 None abnormal bleeding and bruising Quality hematoma 09/04/2015 None abnormal bleeding and bruising Quality improving 09/04/2015 None abnormal bleeding and bruising Onset and Resolution sudden in onset 09/04/2015 None abnormal bleeding and bruising Onset and Resolution ongoing 09/04/2015 None pain, generalized Frequency of Episodes increasing 09/04/2015 None joint complaint Frequency of Episodes increasing 09/04/2015 None abnormal bleeding and bruising Location on the left arm 2015 None abnormal bleeding and bruising Quality hematoma 2015 None abnormal bleeding and bruising Onset and Resolution sudden in onset 2015 None abnormal bleeding and bruising Onset of Symptom 3 weeks ago 2015 None abnormal bleeding and bruising Quality improving 2015 None abnormal bleeding and bruising Onset and Resolution ongoing 2015 None abnormal bleeding and bruising Location on the left arm 07/18/2015 None abnormal bleeding and bruising Quality hematoma 07/18/2015 None abnormal bleeding and bruising Onset and Resolution sudden in onset 07/18/2015 None abnormal bleeding and bruising Onset of Symptom 4 hours ago 07/18/2015 None hyperlipidemia Onset and Resolution gradual in onset 07/02/2015 None hyperlipidemia Onset and Resolution ongoing 07/02/2015 None hyperlipidemia Onset of Symptom during adulthood 07/02/2015 None hyperlipidemia Significant Medications statin 07/02/2015 None hyperlipidemia Alleviating Factors medication 07/02/2015 None hyperlipidemia Exacerbating Factors diet 07/02/2015 None muscle weakness Quality stable 07/02/2015 None muscle weakness Onset and Resolution gradual in onset 07/02/2015 None muscle weakness Onset and Resolution ongoing 07/02/2015 None muscle weakness Limitation on Activities moderately limits activities 07/02/2015 None muscle weakness Frequency of Episodes unchanged 07/02/2015 fluctuates pain, generalized Quality chronic 07/02/2015 None pain, generalized Quality constant 07/02/2015 None pain, generalized Quality stable 07/02/2015 None pain, generalized Onset and Resolution gradual in onset 07/02/2015 None pain, generalized Onset and Resolution ongoing 07/02/2015 None pain, generalized Limitation on Activities moderately limits activities 07/02/2015 None pain, generalized Alleviating Factors rest 07/02/2015 None pain, generalized Alleviating Factors medication 07/02/2015 oxycodone pain, generalized Exacerbating Factors exertion 07/02/2015 None joint complaint Location diffusely 07/02/2015 None joint complaint Quality chronic 07/02/2015 None joint complaint Onset and Resolution ongoing 07/02/2015 None joint complaint Quality intermittent 07/02/2015 None pre-op/surgery consult Referred by Dr. Shultz 05/31/2015 None pre-op/surgery consult Prior Treatments surgery 05/31/2015 None pre-op/surgery consult Procedure to be performed surgery on the 4th and 5th toes on the right foot 05/31/2015 None pre-op/surgery consult Scheduled date of procedure 06/07/2015 05/31/2015 None pre-op/surgery consult Additional Comments The patient is doing well. 05/31/2015 None pre-op/surgery consult Significant Medical Conditions hypertension 05/31/2015 None hyperlipidemia Onset and Resolution gradual in onset 04/09/2015 None hyperlipidemia Onset and Resolution ongoing 04/09/2015 None hyperlipidemia Onset of Symptom during adulthood 04/09/2015 None hyperlipidemia Significant Medications statin 04/09/2015 None hyperlipidemia Alleviating Factors medication 04/09/2015 None muscle weakness Quality stable 04/09/2015 None muscle weakness Onset and Resolution gradual in onset 04/09/2015 None muscle weakness Onset and Resolution ongoing 04/09/2015 None pain, generalized Quality stable 04/09/2015 None pain, generalized Onset and Resolution gradual in onset 04/09/2015 None pain, generalized Onset and Resolution ongoing 04/09/2015 None earache Location left ear 04/09/2015 None earache Quality acute 04/09/2015 "gurgling" earache Onset and Resolution ongoing 04/09/2015 None pain, generalized Quality chronic 04/09/2015 None pain, generalized Quality constant 04/09/2015 None pain, generalized Limitation on Activities moderately limits activities 04/09/2015 None pain, generalized Alleviating Factors rest 04/09/2015 None pain, generalized Exacerbating Factors exertion 04/09/2015 None muscle weakness Limitation on Activities moderately limits activities 04/09/2015 None muscle weakness Frequency of Episodes unchanged 04/09/2015 fluctuates hyperlipidemia Exacerbating Factors diet 04/09/2015 None pain, generalized Alleviating Factors medication 04/09/2015 oxycodone hyperlipidemia Onset and Resolution ongoing 02/08/2015 None hyperlipidemia Onset and Resolution gradual in onset 02/08/2015 None hyperlipidemia Onset of Symptom during adulthood 02/08/2015 None hyperlipidemia Significant Medications statin 02/08/2015 None hyperlipidemia Alleviating Factors medication 02/08/2015 None muscle weakness Quality stable 02/08/2015 None muscle weakness Onset and Resolution ongoing 02/08/2015 Improved this past week muscle weakness Onset and Resolution gradual in onset 02/08/2015 None muscle weakness Quality improving 02/08/2015 None pain, generalized Quality stable 02/08/2015 None pain, generalized Quality improving 02/08/2015 Improved this past week pain, generalized Onset and Resolution ongoing 02/08/2015 None pain, generalized Onset and Resolution gradual in onset 02/08/2015 None skin lesion Quality improving 12/11/2014 None skin lesion Pertinent Findings Denies fever 12/11/2014 None pain Pertinent Findings muscle pain 12/11/2014 None skin lesion Quality improving 11/09/2014 None skin lesion Pertinent Findings Denies fever 11/09/2014 None pain Location-Major on the legs 10/23/2014 None pain Pertinent Findings muscle pain 10/23/2014 None skin lesion Quality improving 10/23/2014 None skin lesion Pertinent Findings Denies fever 10/23/2014 None foot pain Location on the right 10/16/2014 None foot pain Quality dull pain 10/16/2014 None foot pain Onset and Resolution ongoing 10/16/2014 None foot pain Onset of Symptom 1 weeks ago 10/16/2014 None foot pain Frequency of Episodes decreasing 10/16/2014 None foot pain Limitation on Activities allows weight bearing activity 10/16/2014 None foot pain Severity mild 10/16/2014 None foot pain Significant Medical Conditions prior foot injury 10/16/2014 None foot pain Pertinent Findings redness 10/16/2014 None edema Onset and Resolution ongoing 10/16/2014 None edema Frequency of Episodes daily 10/16/2014 None edema Limitation on Activities does not limit activities 10/16/2014 None edema Triggers activity 10/16/2014 None edema Alleviating Factors rest 10/16/2014 None edema Exacerbating Factors activity 10/16/2014 None edema Location on both legs 10/16/2014 None foot pain Location on the right 10/09/2014 None foot pain Quality dull pain 10/09/2014 None foot pain Onset of Symptom 1 weeks ago 10/09/2014 None foot pain Mechanism of injury unknown 10/09/2014 None foot pain Pertinent Findings redness 10/09/2014 None foot pain Onset and Resolution ongoing 10/09/2014 None foot pain Frequency of Episodes decreasing 10/09/2014 None foot pain Limitation on Activities allows weight bearing activity 10/09/2014 None foot pain Severity mild 10/09/2014 None foot pain Significant Medical Conditions prior foot injury 10/09/2014 None edema Quality non-pitting 09/14/2014 None edema Onset and Resolution gradual in onset 09/14/2014 None edema Limitation on Activities does not limit activities 09/14/2014 None edema Frequency of Episodes daily 09/14/2014 None edema Location on both legs 09/14/2014 None edema Onset and Resolution ongoing 09/14/2014 None edema Onset of Symptom 1 months ago 08/11/2014 None edema Limitation on Activities does not limit activities 08/11/2014 None edema Frequency of Episodes daily 08/11/2014 None edema Location on both legs 08/11/2014 None edema Quality non-pitting 08/11/2014 None edema Onset and Resolution gradual in onset 08/11/2014 None neck pain Location in the cervical spine 07/12/2014 stenosis of 4, 5 and 6 neck pain Onset and Resolution ongoing 07/12/2014 None neck pain Quality aching 07/12/2014 reports sometimes is very bad and muscles hurt so bad she cant hold her head up. She wears a collar and also wears back brace neck pain Alleviating Factors neck collar 07/12/[address] Blancas in [place] and Neurosurgeon in [place] in the past neck pain Significant Medical Conditions spinal stenosis 07/12/2014 has osteoarthritis Advance Directives No Advance Directive data Encounters Encounter Performer Location Codes Date () [id number] EST. PATIENT, LEVEL II Diagnosis: Pain in right shoulder[ICD10: M25.511] Diagnosis: Hemarthrosis, right shoulder[ICD10: M25.011] Araceli Silva MD, [facility] CPT-4: 26646 04/02/2017 ([id number]) [id number] EST. PATIENT, LEVEL IV Diagnosis: Chronic pain syndrome[ICD10: G89.4] Diagnosis: Rheumatoid arthritis without rheumatoid factor, right shoulder[ICD10 : M06.011] Diagnosis: Rheumatoid arthritis without rheumatoid factor, left shoulder[ICD10: M06.012] Araceli Silva MD, [facility] CPT-4: 26325 2017 ([id number]) [id number] EST. 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 PATIENT, LEVEL IV Diagnosis: Encounter for immunization[ICD10: Z23] Diagnosis: Chronic pain syndrome[ICD10: G89.4] Diagnosis: Essential (primary) hypertension[ICD10: I10] Araceli Silva MD, [facility] CPT-4: 41265 12/08/2016 ([id number]) 74082 EST. PATIENT, LEVEL III Diagnosis: Urge incontinence[ICD10: N39.41] Diagnosis: Chronic pain syndrome[ICD10: G89.4] Diagnosis: Lymphedema, not elsewhere classified[ICD10: I89.0] Araceli Silva MD, [facility] CPT-4: 08691 11/17/2016 93266 EST. 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 PATIENT, LEVEL IV Diagnosis: Essential (primary) hypertension[ICD10: I10] Diagnosis: Other chronic pain[ICD10: G89.29] Diagnosis: Localized edema[ICD10: R60.0] Diagnosis: Urge incontinence[ICD10: N39.41] Araceli Silva MD, [facility] CPT-4: 69460 11/05/2016 ([id number]) 06387 EST. 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 PATIENT, LEVEL III Diagnosis: Hemarthrosis, right shoulder[ICD10: M25.011] Diagnosis: Pain in right shoulder[ICD10: M25.511] Ila Silva MD, [facility] CPT-4: 65009 10/02/2016 [id number] EST. PATIENT, LEVEL II Diagnosis: Low back pain[ICD10: M54.5] Diagnosis: Sacroiliitis, not elsewhere classified[ICD10: M46.1] Ila Silva MD, [facility] CPT-4: 10958 09/12/2016 ([id number]) 82875 EST. PATIENT, LEVEL III Diagnosis: Hemarthrosis, right shoulder[ICD10: M25.011] Diagnosis: Other chronic pain[ICD10: G89.29] Araceli Silva MD, [facility] CPT-4: 66521 09/08/2016 ([id number]) 79131 EST. PATIENT, LEVEL IV Diagnosis: Other iron deficiency anemias[ICD10: D50.8] Diagnosis: Vitamin D deficiency, unspecified[ICD10: E55.9] Diagnosis: Hypomagnesemia[ICD10: E83.42] Araceli Silva MD, [facility] CPT- 4: 09078 08/26/2016 ([id number]) 16443 EST. PATIENT, LEVEL III Diagnosis: Localized edema[ICD10: R60.0] Araceli Silva MD, [facility] CPT- 4: 63342 08/18/2016 ([id number]) [id number] EST. 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 PATIENT, LEVEL IV Diagnosis: Pain in left shoulder[ICD10: M25.512] Diagnosis: Nocturia[ICD10: R35.1] Maricel Silva MD, [facility] CPT-4: 85200 07/14/2016 86430 EST. PATIENT, LEVEL III Diagnosis: Pain in left shoulder[ICD10: M25.512] Maricel Silva MD [facility] CPT-4: 94380 07/04/2016 ([id number]) 95112 EST. 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 PATIENT, LEVEL II Diagnosis: Insect bite (nonvenomous) of right upper arm, initial encounter[ICD10 : S40.861A] Ila Silva MD, [facility] CPT-4: 86433 11/01/2015 ([id number]) [id number] EST. 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 PATIENT, LEVEL III Diagnosis: Contusion of left upper arm, subsequent encounter[ICD10: S40.022D] Araceli Silva MD, [facility] CPT-4: 26932 2015 [id number] EST. PATIENT, LEVEL III Diagnosis: Cellulitis of left upper limb[ICD10: L03.114] Maricel Silva MD, [facility] CPT-4: 15163 07/18/2015 ([id number]) 88435 EST. 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 PATIENT, LEVEL IV Diagnosis: Essential (primary) hypertension[ICD10: I10] Diagnosis: Vitamin D deficiency, unspecified[ICD10: E55.9] Diagnosis: Mixed hyperlipidemia[ICD10: E78.2] Diagnosis: Age-related osteoporosis with current pathological fracture, unspecified site, sequela[ICD10: M80.00XS] Araceli Silva MD, [facility] CPT- 4: 27434 02/08/2015 ([id number]) 33072 EST. PATIENT, LEVEL IV Diagnosis: Essential (primary) hypertension[ICD10: I10] Diagnosis: Localized edema[ICD10: R60.0] Diagnosis: Primary osteoarthritis, unspecified site[ICD10: M19.91] Araceli Silva MD, [facility] CPT-4: 50028 12/11/2014 ([id number]) 43103 EST. PATIENT, LEVEL III Diagnosis: EDEMA[ICD9: 782.3] Diagnosis: ESSENTIAL HYPERTENSION[ICD9: 401.9] Araceli Silva MD, [facility] CPT-4: 72807 11/09/2014 ([id number]) 82602 EST. PATIENT, LEVEL III Diagnosis: Leg pain[ICD9: 729.5] Diagnosis: Ulcer of toe[ICD9: 707.15] Araceli Silva MD, [facility] CPT- 4: 47886 10/23/2014 ([id number]) 01611 EST. PATIENT, LEVEL III Diagnosis: Ulcer of toe[ICD9: 707.15] Araceli Silva MD, [facility] CPT- 4: 11607 10/16/2014 00073 EST. PATIENT, LEVEL II Diagnosis: Ulcer of toe[ICD9: 707.15] Ila Silva MD, [facility] CPT-4: 52299 10/09/2014 ([id number]) 06915 EST. PATIENT, LEVEL III Diagnosis: EDEMA[ICD9: 782.3] Araceli Silva MD, [facility] CPT-4: 47858 09/14/2014 [id number]) 12133 EST. PATIENT, LEVEL IV Diagnosis: EDEMA[ICD9: 782.3] Diagnosis: ESSENTIAL HYPERTENSION[ICD9: 401.9] Araceli Silva MD, [facility] CPT-4: 20166 08/11/2014 ([id number]) OFFICE VISIT, NEW - LEVEL 4 Diagnosis: HYPERLIPIDEMIA[ICD9: 272.4] Diagnosis: VITAMIN D DEFICIENCY[ICD9: 268.9] Diagnosis: Osteoporosis[ICD9: 733.00] Diagnosis: Esophageal reflux[ICD9: 530.81] Diagnosis: Chronic pain[ICD9: 338.29] Araceli Silva MD, [facility] CPT- 4: 61082 07/12/2014 Plan of Care Planned Activity Notes Codes Status Date Appointment: [facility] [place] ([place] min[place] Moderate 04/02/2017 Patient Education: Patient Medication Summary Completed 04/02/2017 Appointment: [facility] [place] ([place]) Moderate 03/12/2017 Patient Education: Patient Medication Summary Completed 03/12/2017 Appointment: Injection 02/06/2017 Patient Education: Patient Medication Summary Completed 02/06/2017 Appointment: [facility] Silva [facility] [place] ([place] min) Moderate 01/08/2017 Patient Education: Patient Medication Summary Completed 01/08/2017 Patient Education: Hypertension Completed 01/08/2017 Appointment: Araceli Silva WPtel: [phone] [facility] [place] (15 min) Moderate 12/08/2016 Patient Education: Patient Medication Summary Completed 12/08/2016 Patient Education: Hypertension Completed 12/08/2016 Appointment: Araceli Silva WPtel: [phone] [facility] [place] (15 min) Moderate 11/17/2016 Patient Education: Patient Medication Summary Completed 11/17/2016 Appointment: Maricel Gee WPtel: [phone] [facility] [place] (30 min) Complex 11/10/2016 Patient Education: Patient Medication Summary Completed 11/10/2016 Appointment: Araceli Silva WPtel: [facility] [place] (15 min) Moderate 11/05/2016 Patient Education: Patient Medication Summary Completed 11/05/2016 Patient Education: Hypertension Completed 11/05/2016 Referral: External, Ordering Provider Referral Completed 10/23/2016 Referral: Dr Virgen Referral Initiated 10/16/2016 Appointment: [facility] Silva [facility] [place] ([place] min) Moderate 10/07/2016 Patient Education: Patient Medication Summary Completed 10/07/2016 Care Plan: Referral Order SNOMED-CT : [id number] Pending 10/07/2016 Care Plan: Referral Order SNOMED-CT : [id number] Pending 10/07/2016 [phone] [place] ([place] min) Complex 10/02/2016 Patient Education: Patient Medication Summary Completed 10/02/2016 Appointment: [facility] [phone] [facility] [place] ([place]) Moderate 09/23/2016 Appointment: [facility] [place] ([place]) Moderate 09/17/2016 Appointment: Ila Kennedy WPtel: [phone] [phone] [place] (15 min) Moderate 09/12/2016 Patient Education: Patient Medication Summary Completed 09/12/2016 Appointment: Araceli Silva WPtel: [phone] [facility] [place] (15 min) Moderate 09/08/2016 Patient Education: Patient Medication Summary Completed 09/08/2016 Appointment: Araceli Silva WPtel: [phone] [facility] [place] (15 min) Moderate 08/26/2016 Patient Education: Patient Medication Summary Completed 08/26/2016 Patient Education: Patient Medication Summary Completed 08/26/2016 Patient Education: Patient Medication Summary Completed 08/18/2016 Appointment: Araceli Silva WPtel: [phone] [facility] [place] (15 min) Moderate 08/13/2016 Appointment: Araceli Silva WPtel: [phone] [facility] [place] (15 min) Moderate 08/06/2016 Appointment: Araceli Silva WPtel: [phone] [facility] [place] (15 min) Moderate 07/30/2016 Patient Education: Patient Medication Summary Completed 07/30/2016 Appointment: [facility]ee [facility] [place] ([place] min) Complex 07/14/2016 Patient Education: Patient Medication Summary Completed 07/14/2016 App[facility]ment[phone] [place] ([place] min) Complex 07/04/2016 Patient Education: Patient Medication Summary Completed 07/04/2016 Appointment: Araceli Silva WPtel: [facility] [place] (15 min) Moderate 06/26/2016 Patient Education: Patient Medication Summary Completed 06/26/2016 Patient Education: Hypertension Completed 06/26/2016 App[facility]ment: [facility] [phone] [facility] [place] ([place]) Moderate 05/28/2016 Patient Education: Patient Medication Summary Completed 05/28/2016 Patient Education: Hypertension Completed 05/28/2016 App[facility]ment: [facility] [phone] [facility] [place] ([place]) Moderate 05/12/2016 Appointment: [facility] [phone] [facility] [place] ([place]) Moderate 04/15/2016 Appointment: [facility] [phone] [facility] [place] ([place]) Complex 03/25/2016 Appointment: [facility] [phone] [facility] [place] ([place]) Complex 03/18/2016 Patient Education: Patient Medication Summary Completed 03/18/2016 Appointment: [facility] [phone] [facility] [place] ([place]) Moderate 02/19/2016 Appointment: [facility] [phone] [facility] [place] ([place]) Moderate 01/29/2016 Patient Education: Patient Medication Summary Completed 01/29/2016 Appointment: [facility] [phone] [facility] [place] ([place]) Moderate 01/01/2016 Patient Education: Patient Medication Summary Completed 01/01/2016 Patient Education: Hypertension Completed 01/01/2016 Appointment: [facility] [phone] [facility] [place] ([place]) Moderate 12/03/2015 Patient Education: Patient Medication Summary Completed 11/19/2015 Patient Education: Hypertension Completed 11/19/2015 Care Plan: Sed Rate Pending 11/19/2015 Appointment: Ila Kennedy WPtel: [phone] [phone] [place] (15 min) Moderate 11/01/2015 Patient Education: Patient Medication Summary Completed 11/01/2015 Appointment: [facility] Silva [facility]: [facility] [place] ([place]) Moderate 09/04/2015 Patient Education: Patient Medication Summary Completed 09/04/2015 Appointment: Araceli Silva WPtel: [phone] [facility] [place] (15 min) Moderate 2015 Patient Education: Patient Medication Summary Completed 2015 Appointment: [phone] [place] (30 min) Complex 07/18/2015 Patient Education: Patient Medication Summary Completed 07/18/2015 Appointment: [facility] Silva [facility]el: [facility] [place] ([place] min) Moderate 07/02/2015 Patient Education: Patient Medication Summary Completed 07/02/2015 Patient Education: Patient Medication Summary Completed 05/31/2015 Patient Education: Hypertension Completed 05/31/2015 Patient Education: Patient Medication Summary Completed 04/10/2015 Appointment: [facility] Silva [facility] [place] ([place]) Moderate 04/09/2015 Patient Education: Patient Medication Summary Completed 04/09/2015 Patient Education: Hypertension Completed 04/09/2015 Appointment: [facility] Silva [facility]el: [facility] [place] ([place] min) Moderate 02/08/2015 Patient Education: Patient Medication Summary Completed 02/08/2015 Patient Education: Hypertension Completed 02/08/2015 Appointment: Marlee 01/10/2015 Patient Education: Patient Medication Summary Completed 01/10/2015 Appointment: [facility] Silva [facility]el: [facility] (15 min) Moderate 12/11/2014 Patient Education: Patient Medication Summary Completed 12/11/2014 Patient Education: Hypertension Completed 12/11/2014 Appointment: Araceli Silva WPtel: [address] [place], [place] [phone] (15 min) Moderate 11/09/2014 Patient Education: Patient Medication Summary Completed 11/09/2014 Patient Education: Hypertension Completed 11/09/2014 Appointment: Araceli Silva WPtel: [address] [place], [place] [phone] (15 min) Moderate 10/23/2014 Patient Education: Patient Medication Summary Completed 10/23/2014 Appointment: Araceli Silva WPtel: [address] [place], [place] [phone] (15 min) Moderate 10/16/2014 Patient Education: Patient Medication Summary Completed 10/16/2014 Appointment: (15 min) Moderate 10/09/2014 Patient Education: Patient Medication Summary Completed 10/09/2014 Care Plan: Annel BAIRD RTS Pending 10/09/2014 Appointment: Araceli Silva WPtel: [address] [place] [id number] Follow up 09/14/2014 Patient Education: Patient Medication Summary Completed 09/14/2014 Patient Education: Patient Medication Summary Completed 08/11/2014 Patient Education: Hypertension Completed 08/11/2014 Appointment: Araceli Silva WPtel: [address] [place] [address] [place] (S) New Patient 07/12/2014 Patient Education: Patient Medication Summary Completed 07/12/2014 Patient Education: Hypertension Completed 07/12/2014 Referral: Dr Virgen Referral Completed Referral: External, Ordering Provider Referral Completed Instructions No Instructions
--- OUTSIDE RECORDS SUMMARY | 2017-06-06 12:17 | XMS REPORT | Continuity of Care Document ---
Author Author [facility] Organization [facility] Address Unknown Phone Unavailable Allergies Active Description Code Type Severity Reaction Onset Reported/Identified Relationship to Patient Clinical Status Yes Penicillins [id number] Drug Allergy Unknown N/A 09/17/2016 Yes Sulfa (Sulfonamide Antibiotics) [id number] Drug Allergy Unknown N/A 2016 Medications There is no data. Problems Date Dx Coded Attending Type Code Diagnosis Diagnosed By 04/09/2012 Ot 285.9 ANEMIA NOS 08/13/2012 PEE LAST MD Ot 272.4 HYPERLIPIDEMIA NEC/NOS 08/13/2012 PEE LAST MD Ot 276.1 HYPOSMOLALITY 08/13/2012 PEE LAST MD Ot 401.9 HYPERTENSION NOS 08/13/2012 PEE LAST MD Ot 560.9 INTESTINAL OBSTRUCT NOS 08/13/2012 PEE LAST MD Ot 599.0 URIN TRACT INFECTION NOS 08/13/2012 PEE LAST MD Ot 715.90 OSTEOARTHROS NOS-UNSPEC 08/13/2012 PEE LAST MD Ot 733.00 OSTEOPOROSIS NOS 08/13/2012 PEE LAST MD Ot V03.82 PROPHYLACTIC VACC AGAINST STREPTOCOCCUS 08/13/2012 PEE LAST MD Ot V16.0 FAMILY HX-GI MALIGNANCY 10/22/2012 NELIA LOVELACE MD Ot 562.10 DIVERTICULOSIS COLON (W/O MENT OF HEMORR 10/22/2012 NELIA LOVELACE MD Ot 787.99 OTHER GI SYSTEM SYMPTOMS 10/22/2012 NELIA LOVELACE MD Ot V12.72 PERSONAL HISTORY OF COLONIC POLYPS 10/22/2012 NELIA LOVELACE MD Ot V16.0 FAMILY HX-GI MALIGNANCY 02/13/2014 PEE LAST MD Ot 721.0 02/13/2014 PEE LAST MD Ot 959.19 02/13/2014 PEE LAST MD M Ot E000.8 02/13/2014 SHALA GMOEZ, PEE M Ot E888.9 03/10/2014 SHALA GOMEZ, PEE M Ot 721.0 07/26/2014 RAF GOMEZ, WOODY A Ot 280.9 07/26/2014 RAF GOMEZ, WOODY A Ot 280.9 07/26/2014 RAF GOMEZ, WOODY A Ot 280.9 09/08/2014 RAF GOMEZ, WOODY A Ot 280.9 10/04/2014 RAF GOMEZ, WOODY A Ot 782.3 10/04/2014 RAF GOMEZ, WOODY A Ot V12.51 10/12/2014 RAF GOMEZ, WOODY A Ot 280.9 IRON DEFIC ANEMIA NOS 10/24/2014 RAF GOMEZ, WOODY A Ot 782.3 10/24/2014 RAF GOMEZ, WOODY A Ot V12.51 05/07/2015 Ot 724.2 05/07/2015 Ot 959.19 05/07/2015 Ot E000.8 05/07/2015 Ot E849.0 05/07/2015 Ot E888.9 05/07/2015 Ot 782.7 05/07/2015 SHALA GOMEZ, PEE M Ot V76.12 05/07/2015 SHALA GOMEZ, PEE M Ot 793.80 05/07/2015 RADU GOMEZ, NELIA Carvajal Ot V72.84 05/07/2015 SHALA GOMEZ, PEE M Ot 610.0 05/07/2015 HSALA GOMEZ, PEE M Ot V67.9 05/07/2015 SHALA GOMEZ, PEE M Ot 793.80 05/07/2015 SHALA GOMEZ, PEE M Ot 737.30 05/07/2015 SHALA GOMEZ, PEE M Ot 959.19 05/07/2015 SHALA GOMEZ, PEE M Ot E000.8 05/07/2015 SHALA GOMEZ, PEE M Ot E849.0 05/07/2015 SHALA GOMEZ, PEE M Ot E888.9 05/07/2015 SHALA GOMEZ, PEE M Ot V45.4 05/07/2015 SHALA GOMEZ, PEE M Ot 721.0 05/07/2015 SHALA GOMEZ, PEE Bajwa Ot 959.19 05/07/2015 SHALA GOMEZ, PEE Bajwa Ot E000.8 05/07/2015 SHALA GOMEZ, PEE Bajwa Ot E888.9 05/07/2015 SHALA GOMEZ, PEE Bajwa Ot 721.0 05/07/2015 RAF GOMEZ, WOODY A Ot 782.3 05/07/2015 RAF GOMEZ, WOODY A Ot V12.51 05/07/2015 RAF GOMEZ, WOODY A Ot 280.9 05/07/2015 RAF GOMEZ, WOODY A Ot 280.9 05/07/2015 RAF GOMEZ, WOODY A Ot 280.9 05/08/2015 RAF GOMEZ, WOODY A Ot D50.9 05/09/2015 RAF GOMEZ, WOODY A Ot D50.9 05/11/2015 RAF GOMEZ, WOODY A Ot D50.9 05/14/2015 RAF GOMEZ, WOODY A Ot D50.9 05/16/2015 RAF GOMEZ, WOODY A Ot D50.9 05/18/2015 ARF GOMEZ, WOODY A Ot D50.9 06/29/2015 RAF GOMEZ, WOODY A Ot D50.9 IRON DEFICIENCY ANEMIA, UNSPECIFIED 07/16/2015 RAF GOMEZ, WOODY A Ot M80.00XS AGE-REL OSTEOPOR W CURRENT PATH FRACTURE 08/05/2015 WOODY CARBONE MD A Ot D50.9 IRON DEFICIENCY ANEMIA, UNSPECIFIED 08/07/2015 RAF GOMEZ, WOODY A Ot D50.9 IRON DEFICIENCY ANEMIA, UNSPECIFIED 08/17/2015 RAF GOMEZ, WOODY A Ot M80.00XS AGE-REL OSTEOPOR W CURRENT PATH FRACTURE 12/11/2015 ABIGAIL TORREZ MD Ot E78.00 PURE HYPERCHOLESTEROLEMIA, UNSPECIFIED 12/11/2015 ABIGAIL TORREZ MD Ot G62.9 POLYNEUROPATHY, UNSPECIFIED 12/11/2015 ABIGAIL TORREZ MD Ot G89.4 CHRONIC PAIN SYNDROME 12/11/2015 ABIGAIL TORREZ MD Ot K21.9 GASTRO-ESOPHAGEAL REFLUX DISEASE WITHOUT 12/11/2015 ABIGAIL TORREZ MD Ot K56.5 INTESTINAL ADHESIONS W OBST (POSTPROCEDU 12/11/2015 ABIGAIL TORREZ MD Ot M19.90 UNSPECIFIED OSTEOARTHRITIS, UNSPECIFIED 12/11/2015 LORE GOMEZ, ABIGAIL Ot M48.02 SPINAL STENOSIS, CERVICAL REGION 12/11/2015 LORE GOMEZ, ABIGAIL Ot M79.1 MYALGIA 12/11/2015 LORE GOMEZ, ABIGAIL Ot Z87.891 PERSONAL HISTORY OF NICOTINE DEPENDENCE 12/21/2015 MARGE COX GOAT DRIVER Ot Z12.31 ENCNTR SCREEN MAMMOGRAM FOR MALIGNANT NE 12/25/2015 MARGE COX GOAT DRIVER Ot Z12.31 ENCNTR SCREEN MAMMOGRAM FOR MALIGNANT NE 12/26/2015 MARGE COX GOAT DRIVER Ot Z12.31 ENCNTR SCREEN MAMMOGRAM FOR MALIGNANT NE 12/31/2015 MARGE COX GOAT DRIVER Ot Z12.31 ENCNTR SCREEN MAMMOGRAM FOR MALIGNANT NE 02/19/2016 RAF GOMEZ, WOODY Quiroz Ot M81.0 AGE-RELATED OSTEOPOROSIS W/O CURRENT PAT 03/14/2016 WOODY CARBONE MD Ot M81.0 AGE-RELATED OSTEOPOROSIS W/O CURRENT PAT 07/07/2016 Ot 724.2 LUMBAGO 07/07/2016 Ot 959.19 OTH INJURY OF OTHER SITES OF TRUNK 07/07/2016 Ot E000.8 OTHER EXTERNAL CAUSE STATUS 07/07/2016 Ot E849.0 ACCIDENT IN HOME 07/07/2016 Ot E888.9 FALL NOS 07/07/2016 Ot 782.7 SPONTANEOUS ECCHYMOSES 07/07/2016 PEE LAST MD Ot V76.12 OTH SCREEN MAMMO-MALIGN NEOPLASM OF ISAAC 07/07/2016 PEE LAST MD Ot 793.80 UNSPEC ABNORMAL MAMMOGRAM 07/07/2016 RADU GOMEZ, NELIA Carvajal Ot V72.84 EXAM PRE-OPERATIVE NOS 07/07/2016 PEE LAST MD Ot 610.0 SOLITARY CYST OF BREAST 07/07/2016 PEE LAST MD Ot V67.9 FOLLOW-UP EXAM NOS 07/07/2016 PEE LAST MD Ot 793.80 UNSPEC ABNORMAL MAMMOGRAM 07/07/2016 PEE LAST MD Ot 737.30 IDIOPATHIC SCOLIOSIS 07/07/2016 PEE LAST MD Ot 959.19 OTH INJURY OF OTHER SITES OF TRUNK 07/07/2016 PEE LAST MD Ot E000.8 OTHER EXTERNAL CAUSE STATUS 07/07/2016 PEE LAST MD Ot E849.0 ACCIDENT IN HOME 07/07/2016 PEE LAST MD Ot E888.9 FALL NOS 07/07/2016 PEE LAST MD Ot V45.4 ARTHRODESIS STATUS 07/07/2016 PEE LAST MD Ot 721.0 CERVICAL SPONDYLOSIS 07/07/2016 PEE LAST MD Ot 959.19 OTH INJURY OF OTHER SITES OF TRUNK 07/07/2016 PEE LAST MD Ot E000.8 OTHER EXTERNAL CAUSE STATUS 07/07/2016 PEE LAST MD Ot E888.9 FALL NOS 07/07/2016 PEE LAST MD Ot 721.0 CERVICAL SPONDYLOSIS 07/07/2016 WOODY CARBONE MD Ot 782.3 EDEMA 07/07/2016 WOODY CARBONE MD Ot V12.51 HX-VENOUS THROMBOSIS EMBOLISM 07/07/2016 WOODY CARBONE MD Ot M80.00XS AGE-REL OSTEOPOR W CURRENT PATH FRACTURE 07/07/2016 WOODY CARBONE MD Ot M81.0 AGE-RELATED OSTEOPOROSIS W/O CURRENT PAT 07/07/2016 WOODY CARBONE MD Ot D50.9 IRON DEFICIENCY ANEMIA, UNSPECIFIED 07/07/2016 MARGE COX APRN Ot Z12.31 ENCNTR SCREEN MAMMOGRAM FOR MALIGNANT NE 07/07/2016 MARGE COX APRN Ot R22.32 LOCALIZED SWELLING, MASS AND LUMP, LEFT 07/07/2016 MARGE COX APRN Ot R22.32 LOCALIZED SWELLING, MASS AND LUMP, LEFT 07/25/2016 MARGE COX APRN Ot M25.512 PAIN IN LEFT SHOULDER 07/28/2016 AMRK GOMEZ, KIKO Glover Ot E86.9 VOLUME DEPLETION, UNSPECIFIED 07/28/2016 KIKO FLORES MD Ot I95.1 ORTHOSTATIC HYPOTENSION 07/28/2016 KIKO FLORES MD Ot N39.0 URINARY TRACT INFECTION, SITE NOT SPECIF 07/28/2016 KIKO FLORES MD Ot R42 DIZZINESS AND GIDDINESS 07/28/2016 KIKO FLORES MD Ot R53.1 WEAKNESS 07/28/2016 KIKO FLORES MD Ot Z79.82 SKILLED NURSING (CURRENT) USE OF ASPIRIN 07/28/2016 KIKO FLORES MD Ot Z79.891 SKILLED NURSING (CURRENT) USE OF OPIATE ANALGE 07/28/2016 KIKO FLORES MD Ot Z79.899 OTHER SKILLED NURSING (CURRENT) DRUG THERAPY 07/28/2016 KIKO FLORES MD Ot Z87.891 PERSONAL HISTORY OF NICOTINE DEPENDENCE 07/31/2016 KIKO FLORES MD Ot E86.9 VOLUME DEPLETION, UNSPECIFIED 07/31/2016 KIKO FLORES MD Ot I95.1 ORTHOSTATIC HYPOTENSION 07/31/2016 KIKO FLORES MD Ot N39.0 URINARY TRACT INFECTION, SITE NOT SPECIF 07/31/2016 KIKO FLORES MD Ot R42 DIZZINESS AND GIDDINESS 07/31/2016 KIKO FLORES MD Ot R53.1 WEAKNESS 07/31/2016 KIKO FLORES MD Ot Z79.82 HAMPER MAKER (CURRENT) USE OF ASPIRIN 07/31/2016 KIKO FLORES MD Ot Z79.891 HAMPER MAKER (CURRENT) USE OF OPIATE ANALGE 07/31/2016 KIKO FLORES MD Ot Z79.899 OTHER HAMPER MAKER (CURRENT) DRUG THERAPY 07/31/2016 KIKO FLORES MD Ot Z87.891 PERSONAL HISTORY OF NICOTINE DEPENDENCE 08/11/2016 MARGE COX APRN Ot R22.32 LOCALIZED SWELLING, MASS AND LUMP, LEFT 08/11/2016 MARGE OCX APRN Ot Z86.718 PERSONAL HISTORY OF OTHER VENOUS THROMBO 08/14/2016 Ot 724.2 LUMBAGO 08/14/2016 Ot 959.19 OTH INJURY OF OTHER SITES OF TRUNK 08/14/2016 Ot E000.8 OTHER EXTERNAL CAUSE STATUS 08/14/2016 Ot E849.0 ACCIDENT IN HOME 08/14/2016 Ot E888.9 FALL NOS 08/14/2016 Ot 782.7 SPONTANEOUS ECCHYMOSES 08/14/2016 PEE LAST MD Ot V76.12 OTH SCREEN MAMMO-MALIGN NEOPLASM OF ISAAC 08/14/2016 PEE LAST MD Ot 793.80 UNSPEC ABNORMAL MAMMOGRAM 08/14/2016 RADU GOMEZ, NELIA Carvajal Ot V72.84 EXAM PRE-OPERATIVE NOS 08/14/2016 PEE LAST MD Ot 610.0 SOLITARY CYST OF BREAST 08/14/2016 PEE LAST MD Ot V67.9 FOLLOW-UP EXAM NOS 08/14/2016 PEE LAST MD Ot 793.80 UNSPEC ABNORMAL MAMMOGRAM 08/14/2016 PEE LAST MD Ot 737.30 IDIOPATHIC SCOLIOSIS 08/14/2016 PEE LAST MD Ot 959.19 OTH INJURY OF OTHER SITES OF TRUNK 08/14/2016 PEE LAST MD Ot E000.8 OTHER EXTERNAL CAUSE STATUS 08/14/2016 PEE LAST MD Ot E849.0 ACCIDENT IN HOME 08/14/2016 PEE LAST MD Ot E888.9 FALL NOS 08/14/2016 PEE LAST MD Ot V45.4 ARTHRODESIS STATUS 08/14/2016 PEE LAST MD Ot 721.0 CERVICAL SPONDYLOSIS 08/14/2016 PEE LAST MD Ot 959.19 OTH INJURY OF OTHER SITES OF TRUNK 08/14/2016 PEE LAST MD Ot E000.8 OTHER EXTERNAL CAUSE STATUS 08/14/2016 PEE LAST MD Ot E888.9 FALL NOS 08/14/2016 PEE LAST MD Ot 721.0 CERVICAL SPONDYLOSIS 08/14/2016 WOODY CARBONE MD Ot 782.3 EDEMA 08/14/2016 WOODY CARBONE MD Ot V12.51 HX-VENOUS THROMBOSIS EMBOLISM 08/14/2016 WOODY CARBONE MD Ot M80.00XS AGE-REL OSTEOPOR W CURRENT PATH FRACTURE 08/14/2016 WOODY CARBONE MD Ot M81.0 AGE-RELATED OSTEOPOROSIS W/O CURRENT PAT 08/14/2016 WOODY CARBONE MD Ot D50.9 IRON DEFICIENCY ANEMIA, UNSPECIFIED 08/14/2016 MARGE COX GOAT DRIVER Ot Z12.31 ENCNTR SCREEN MAMMOGRAM FOR MALIGNANT NE 08/14/2016 MARGE COX GOAT DRIVER Ot M25.512 PAIN IN LEFT SHOULDER 08/19/2016 RAF GOMEZ, WOODY Quiroz Ot M81.0 AGE-RELATED OSTEOPOROSIS W/O CURRENT PAT 08/27/2016 RAF GOMEZ, WOODY Quiroz Ot D64.9 ANEMIA, UNSPECIFIED 08/29/2016 RAF GOMEZ, WOODY Quiroz Ot D64.9 ANEMIA, UNSPECIFIED 09/01/2016 RAF GOMEZ, WOODY Quiroz Ot D64.9 ANEMIA, UNSPECIFIED 09/03/2016 RAF GOMEZ, WOODY Quiroz Ot D64.9 ANEMIA, UNSPECIFIED 09/05/2016 RAF GOMEZ, WOODY Quiroz Ot D64.9 ANEMIA, UNSPECIFIED 09/05/2016 RAF GOMEZ, WOODY Quiroz Ot D64.9 ANEMIA, UNSPECIFIED 09/12/2016 RAF GOMEZ, WOODY Quiroz Ot M81.0 AGE-RELATED OSTEOPOROSIS W/O CURRENT PAT 09/17/2016 RAF GOMEZ, WOODY Quiroz Ot D50.9 IRON DEFICIENCY ANEMIA, UNSPECIFIED 09/17/2016 RAF GOMEZ, WOODY Quiroz Ot D50.0 IRON DEFICIENCY ANEMIA SECONDARY TO BLOO 09/17/2016 RAF GOMEZ, WOODY Quiroz Ot E78.00 PURE HYPERCHOLESTEROLEMIA, UNSPECIFIED 09/17/2016 RAF GOMEZ, WOODY Quiroz Ot E87.1 HYPO-OSMOLALITY AND HYPONATREMIA 09/17/2016 RAF GOMEZ, WOODY Quiroz Ot G62.9 POLYNEUROPATHY, UNSPECIFIED 09/17/2016 RAF GOMEZ, WOODY Quiroz Ot G89.4 CHRONIC PAIN SYNDROME 09/17/2016 RAF GOMEZ, WOODY Quiroz Ot K21.9 GASTRO-ESOPHAGEAL REFLUX DISEASE WITHOUT 09/17/2016 RAF GOMEZ, WOODY Quiroz Ot K58.9 IRRITABLE BOWEL SYNDROME WITHOUT DIARRHE 09/17/2016 RAF GOMEZ, WOODY Quiroz Ot M16.11 UNILATERAL PRIMARY OSTEOARTHRITIS, RIGHT 09/17/2016 RAF GOMEZ, WOODY Quiroz Ot M19.011 PRIMARY OSTEOARTHRITIS, RIGHT SHOULDER 09/17/2016 RAF GOMEZ, WOODY Quiroz Ot M19.012 PRIMARY OSTEOARTHRITIS, LEFT SHOULDER 09/17/2016 RAF GOMEZ, WOODY Quiroz Ot M54.9 DORSALGIA, UNSPECIFIED 09/17/2016 WOODY CARBONE MD Ot M79.7 FIBROMYALGIA 09/17/2016 WOODY CARBONE MD Ot R19.5 OTHER FECAL ABNORMALITIES 09/17/2016 WOODY CARBONE MD Ot R53.1 WEAKNESS 09/17/2016 WOODY CARBONE MD Ot S72.421A DISP FX OF LATERAL CONDYLE OF RIGHT FEMU 09/17/2016 WOODY CARBONE MD Ot W19.XXXA UNSPECIFIED FALL, INITIAL ENCOUNTER 09/17/2016 WOODY CARBONE MD Ot Y92.009 [facility] (PRIVATE 09/17/2016 WOODY CARBONE MD Ot Z87.11 PERSONAL HISTORY OF PEPTIC ULCER DISEASE 09/17/2016 WOODY CARBONE MD Ot Z87.891 PERSONAL HISTORY OF NICOTINE DEPENDENCE 09/17/2016 WOODY CARBONE MD Ot Z96.651 PRESENCE OF RIGHT ARTIFICIAL KNEE JOINT 09/18/2016 WOODY CARBONE MD Ot D50.0 IRON DEFICIENCY ANEMIA SECONDARY TO BLOO 09/18/2016 WOODY CARBONE MD Ot E78.00 PURE HYPERCHOLESTEROLEMIA, UNSPECIFIED 09/18/2016 WOODY CARBONE MD Ot E87.1 HYPO-OSMOLALITY AND HYPONATREMIA 09/18/2016 WOODY CARBONE MD Ot G62.9 POLYNEUROPATHY, UNSPECIFIED 09/18/2016 WOODY CARBONE MD Ot G89.4 CHRONIC PAIN SYNDROME 09/18/2016 WOODY CARBONE MD Ot K21.9 GASTRO-ESOPHAGEAL REFLUX DISEASE WITHOUT 09/18/2016 WOODY CARBONE MD Ot K58.9 IRRITABLE BOWEL SYNDROME WITHOUT DIARRHE 09/18/2016 WOODY CARBONE MD Ot M16.11 UNILATERAL PRIMARY OSTEOARTHRITIS, RIGHT 09/18/2016 WOODY CARBONE MD Ot M19.011 PRIMARY OSTEOARTHRITIS, RIGHT SHOULDER 09/18/2016 WOODY CARBONE MD Ot M19.012 PRIMARY OSTEOARTHRITIS, LEFT SHOULDER 09/18/2016 WOODY CARBONE MD Ot M54.9 DORSALGIA, UNSPECIFIED 09/18/2016 WOODY CARBONE MD Ot M79.7 FIBROMYALGIA 09/18/2016 WOODY CARBONE MD Ot R19.5 OTHER FECAL ABNORMALITIES 09/18/2016 WOODY CARBONE MD Ot R53.1 WEAKNESS 09/18/2016 WOODY CARBONE MD Ot S72.421A DISP FX OF LATERAL CONDYLE OF RIGHT FEMU 09/18/2016 WOODY CARBONE MD Ot W19.XXXA UNSPECIFIED FALL, INITIAL ENCOUNTER 09/18/2016 WOODY CARBONE MD Ot Y92.[address] [facility] 09/18/2016 WOODY CARBONE MD Ot Z87.11 PERSONAL HISTORY OF PEPTIC ULCER DISEASE 09/18/2016 WOODY CARBONE MD Ot Z87.891 PERSONAL HISTORY OF NICOTINE DEPENDENCE 09/18/2016 WOODY CARBONE MD, Ot Z96.651 PRESENCE OF RIGHT ARTIFICIAL KNEE JOINT 09/19/2016 WOODY CARBONE MD Ot D62 ACUTE POSTHEMORRHAGIC ANEMIA 09/19/2016 WOODY CARBONE MD Ot E78.00 PURE HYPERCHOLESTEROLEMIA, UNSPECIFIED 09/19/2016 WOODY CARBONE MD Ot E87.1 HYPO-OSMOLALITY AND HYPONATREMIA 09/19/2016 WOODY CARBONE MD Ot G62.9 POLYNEUROPATHY, UNSPECIFIED 09/19/2016 WOODY CARBONE MD Ot G89.4 CHRONIC PAIN SYNDROME 09/19/2016 WOODY CARBONE MD Ot K21.0 GASTRO-ESOPHAGEAL REFLUX DISEASE WITH ES 09/19/2016 WOODY CARBONE MD Ot K25.4 CHRONIC OR UNSPECIFIED GASTRIC ULCER WIT 09/19/2016 WOODY CARBONE MD Ot K29.70 GASTRITIS, UNSPECIFIED, WITHOUT BLEEDING 09/19/2016 WOODY CARBONE MD Ot K44.9 DIAPHRAGMATIC HERNIA WITHOUT OBSTRUCTION 09/19/2016 WOODY CARBONE MD Ot 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 09/19/2016 WOODY CARBONE MD Ot K58.9 IRRITABLE BOWEL SYNDROME WITHOUT DIARRHE 09/19/2016 WOODY CARBONE MD Ot K64.1 SECOND DEGREE HEMORRHOIDS 09/19/2016 WOODY CARBONE MD Ot M16.11 UNILATERAL PRIMARY OSTEOARTHRITIS, RIGHT 09/19/2016 WOODY CARBONE MD Ot M19.011 PRIMARY OSTEOARTHRITIS, RIGHT SHOULDER 09/19/2016 WOODY CARBONE MD, Ot M19.012 PRIMARY OSTEOARTHRITIS, LEFT SHOULDER 09/19/2016 RAF MD, WOODY A Ot M54.9 DORSALGIA, UNSPECIFIED 09/19/2016 WOODY CARBONE MD Ot M79.7 FIBROMYALGIA 09/19/2016 WOODY CARBONE MD Ot R19.5 OTHER FECAL ABNORMALITIES 09/19/2016 WOODY CARBONE MD Ot R53.1 WEAKNESS 09/19/2016 WOODY CARBONE MD Ot S72.421A DISP FX OF LATERAL CONDYLE OF RIGHT FEMU 09/19/2016 WOODY CARBONE MD Ot W19.XXXA UNSPECIFIED FALL, INITIAL ENCOUNTER 09/19/2016 WOODY CARBONE MD Ot Y92.[address] IN [facility] NON-[facility]IT[facility] (PRIVATE 09/19/2016 WOODY CARBONE MD Ot Z87.11 PERSONAL HISTORY OF PEPTIC ULCER DISEASE 09/19/2016 WOODY CARBONE MD Ot Z87.891 PERSONAL HISTORY OF NICOTINE DEPENDENCE 09/19/2016 WOODY CARBONE MD Ot Z96.651 PRESENCE OF RIGHT ARTIFICIAL KNEE JOINT 09/25/2016 BERE BEAN MD E Ot K25.9 GASTRIC ULCER, UNSP ACUTE OR CHRONIC, 09/25/2016 BERE BEAN MD Ot M17.0 BILATERAL PRIMARY OSTEOARTHRITIS OF KNEE 09/25/2016 BERE BEAN MD Ot M19.011 PRIMARY OSTEOARTHRITIS, RIGHT SHOULDER 09/25/2016 BERE BEAN MD Ot M19.012 PRIMARY OSTEOARTHRITIS, LEFT SHOULDER 09/25/2016 BERE BEAN MD Ot M19.041 PRIMARY OSTEOARTHRITIS, RIGHT HAND 09/25/2016 BERE BEAN MD Ot M19.042 PRIMARY OSTEOARTHRITIS, LEFT HAND 09/25/2016 BERE BEAN MD Ot M47.812 SPONDYLOSIS W/O MYELOPATHY OR RADICULOPA 09/25/2016 BERE BEAN MD Ot M81.0 AGE-RELATED OSTEOPOROSIS W/O CURRENT PAT 09/26/2016 BERE BEAN MD Ot K25.9 GASTRIC ULCER, UNSP ACUTE OR CHRONIC, 09/26/2016 BERE BEAN MD E Ot M17.0 BILATERAL PRIMARY OSTEOARTHRITIS OF KNEE 09/26/2016 BERE BEAN MD E Ot M19.011 PRIMARY OSTEOARTHRITIS, RIGHT SHOULDER 09/26/2016 BERE BEAN MD Ot M19.012 PRIMARY OSTEOARTHRITIS, LEFT SHOULDER 09/26/2016 BEAN MD, BERE E Ot M19.041 PRIMARY OSTEOARTHRITIS, RIGHT HAND 09/26/2016 VIKAS GOMEZ BERE E Ot M19.042 PRIMARY OSTEOARTHRITIS, LEFT HAND 09/26/2016 VIKAS GOMEZ BERE E Ot M47.812 SPONDYLOSIS W/O MYELOPATHY OR RADICULOPA 09/26/2016 VIKAS GOMEZ BERE E Ot M81.0 AGE-RELATED OSTEOPOROSIS W/O CURRENT PAT 09/27/2016 BERE BEAN MD E Ot K25.9 GASTRIC ULCER, UNSP ACUTE OR CHRONIC, 09/27/2016 VIKAS GOMEZ BERE E Ot M17.0 BILATERAL PRIMARY OSTEOARTHRITIS OF KNEE 09/27/2016 VIKAS OGMEZ BERE E Ot M19.011 PRIMARY OSTEOARTHRITIS, RIGHT SHOULDER 09/27/2016 VIKAS GOMEZ BERE E Ot M19.012 PRIMARY OSTEOARTHRITIS, LEFT SHOULDER 09/27/2016 VIKAS GOMEZ BERE E Ot M19.041 PRIMARY OSTEOARTHRITIS, RIGHT HAND 09/27/2016 VIKAS GOMEZ BERE E Ot M19.042 PRIMARY OSTEOARTHRITIS, LEFT HAND 09/27/2016 VIKAS GOMEZ BERE E Ot M47.812 SPONDYLOSIS W/O MYELOPATHY OR RADICULOPA 09/27/2016 VIKAS GOMEZ BERE E Ot M81.0 AGE-RELATED OSTEOPOROSIS W/O CURRENT PAT 09/30/2016 BERE BEAN MD E Ot K25.9 GASTRIC ULCER, UNSP ACUTE OR CHRONIC, 09/30/2016 VIKAS GOMEZ BERE E Ot M17.0 BILATERAL PRIMARY OSTEOARTHRITIS OF KNEE 09/30/2016 VIKAS GOMEZ BERE E Ot M19.011 PRIMARY OSTEOARTHRITIS, RIGHT SHOULDER 09/30/2016 VIKAS GOMEZ BERE E Ot M19.012 PRIMARY OSTEOARTHRITIS, LEFT SHOULDER 09/30/2016 VIKAS GOMEZ BERE E Ot M19.041 PRIMARY OSTEOARTHRITIS, RIGHT HAND 09/30/2016 VIKAS GOMEZ BERE E Ot M19.042 PRIMARY OSTEOARTHRITIS, LEFT HAND 09/30/2016 VIKAS GOMEZ BERE E Ot M47.812 SPONDYLOSIS W/O MYELOPATHY OR RADICULOPA 09/30/2016 VIKAS GOMEZ BERE E Ot M81.0 AGE-RELATED OSTEOPOROSIS W/O CURRENT PAT 09/30/2016 VIKAS GOMEZ BERE E Ot D50.0 IRON DEFICIENCY ANEMIA SECONDARY TO BLOO 09/30/2016 VIKAS GOMEZ BERE E Ot E87.1 HYPO-OSMOLALITY AND HYPONATREMIA 09/30/2016 BERE BEAN MD Ot E87.6 HYPOKALEMIA 09/30/2016 BERE BEAN MD E Ot G62.9 POLYNEUROPATHY, UNSPECIFIED 09/30/2016 BERE BEAN MD Ot K25.9 GASTRIC ULCER, UNSP ACUTE OR CHRONIC, 09/30/2016 BERE BEAN MD E Ot M17.0 BILATERAL PRIMARY OSTEOARTHRITIS OF KNEE 09/30/2016 BERE BEAN MD E Ot M19.011 PRIMARY OSTEOARTHRITIS, RIGHT SHOULDER 09/30/2016 BERE BEAN MD E Ot M19.012 PRIMARY OSTEOARTHRITIS, LEFT SHOULDER 09/30/2016 BERE BEAN MD E Ot M19.041 PRIMARY OSTEOARTHRITIS, RIGHT HAND 09/30/2016 BERE BEAN MD E Ot M19.042 PRIMARY OSTEOARTHRITIS, LEFT HAND 09/30/2016 BERE BEAN MD E Ot M47.812 SPONDYLOSIS W/O MYELOPATHY OR RADICULOPA 09/30/2016 BERE BEAN MD Ot M81.0 AGE-RELATED OSTEOPOROSIS W/O CURRENT PAT 10/06/2016 WOODY CARBONE MD Ot D64.9 ANEMIA, UNSPECIFIED 10/27/2016 WOODY CARBONE MD Ot D64.9 ANEMIA, UNSPECIFIED 11/07/2016 Ot 724.2 LUMBAGO 11/07/2016 Ot 959.19 OTH INJURY OF OTHER SITES OF TRUNK 11/07/2016 Ot E000.8 OTHER EXTERNAL CAUSE STATUS 11/07/2016 Ot E849.0 ACCIDENT IN HOME 11/07/2016 Ot E888.9 FALL NOS 11/07/2016 Ot 782.7 SPONTANEOUS ECCHYMOSES 11/07/2016 PEE LAST MD Ot V76.12 OTH SCREEN MAMMO-MALIGN NEOPLASM OF ISAAC 11/07/2016 PEE LAST MD Ot 793.80 UNSPEC ABNORMAL MAMMOGRAM 11/07/2016 RADU GOMEZ, NELIA Carvajal Ot V72.84 EXAM PRE-OPERATIVE NOS 11/07/2016 PEE LAST MD Ot 610.0 SOLITARY CYST OF BREAST 11/07/2016 PEE LAST MD Ot V67.9 FOLLOW-UP EXAM NOS 11/07/2016 PEE LAST MD Ot 793.80 UNSPEC ABNORMAL MAMMOGRAM 11/07/2016 PEE LAST MD Ot 737.30 IDIOPATHIC SCOLIOSIS 11/07/2016 PEE LAST MD Ot 959.19 OTH INJURY OF OTHER SITES OF TRUNK 11/07/2016 PEE LAST MD Ot E000.8 OTHER EXTERNAL CAUSE STATUS 11/07/2016 PEE LAST MD Ot E849.0 ACCIDENT IN HOME 11/07/2016 PEE LAST MD Ot E888.9 FALL NOS 11/07/2016 PEE LAST MD Ot V45.4 ARTHRODESIS STATUS 11/07/2016 PEE LAST MD Ot 721.0 CERVICAL SPONDYLOSIS 11/07/2016 PEE LAST MD Ot 959.19 OTH INJURY OF OTHER SITES OF TRUNK 11/07/2016 PEE LAST MD Ot E000.8 OTHER EXTERNAL CAUSE STATUS 11/07/2016 PEE LAST MD Ot E888.9 FALL NOS 11/07/2016 PEE LAST MD Ot 721.0 CERVICAL SPONDYLOSIS 11/07/2016 WOODY CARBONE MD Ot 782.3 EDEMA 11/07/2016 WOODY CARBONE MD Ot V12.51 HX-VENOUS THROMBOSIS EMBOLISM 11/07/2016 WOODY CARBONE MD Ot M80.00XS AGE-REL OSTEOPOR W CURRENT PATH FRACTURE 11/07/2016 WOODY CARBONE MD Ot M81.0 AGE-RELATED OSTEOPOROSIS W/O CURRENT PAT 11/07/2016 WOODY CARBONE MD Ot D50.9 IRON DEFICIENCY ANEMIA, UNSPECIFIED 11/07/2016 MARGE COX APRN Ot Z12.31 ENCNTR SCREEN MAMMOGRAM FOR MALIGNANT NE 11/07/2016 MARGE COX APRN Ot M25.512 PAIN IN LEFT SHOULDER 11/25/2016 WOODY CARBONE MD Ot D64.9 ANEMIA, UNSPECIFIED 02/19/2017 ARTHUR FLORES Ot M81.0 AGE-RELATED OSTEOPOROSIS W/O CURRENT PAT 02/22/2017 ARTHUR FLORES Ot M81.0 AGE-RELATED OSTEOPOROSIS W/O CURRENT PAT 03/17/2017 ARTHUR FLORES Ot M81.0 AGE-RELATED OSTEOPOROSIS W/O CURRENT PAT 03/17/2017 WOODY CARBONE MD Ot D64.9 ANEMIA, UNSPECIFIED 03/19/2017 GALLO HUMMEL MD Ot R68.89 OTHER GENERAL SYMPTOMS AND SIGNS 03/19/2017 GALLO HUMMEL MD Ot Z79.899 OTHER SKILLED NURSING (CURRENT) DRUG THERAPY 03/23/2017 GALLO HUMMEL MD Ot D64.9 ANEMIA, UNSPECIFIED 03/23/2017 GALLO HUMMEL MD Ot R53.83 OTHER FATIGUE 03/27/2017 WOODY CARBONE MD A Ot D50.9 IRON DEFICIENCY ANEMIA, UNSPECIFIED 03/30/2017 WOODY CARBONE MD A Ot D50.9 IRON DEFICIENCY ANEMIA, UNSPECIFIED 04/01/2017 WOODY CARBONE MD Ot D50.9 IRON DEFICIENCY ANEMIA, UNSPECIFIED 04/01/2017 WOODY CARBONE MD A Ot D50.9 IRON DEFICIENCY ANEMIA, UNSPECIFIED 04/03/2017 WOODY CARBONE MD A Ot D50.9 IRON DEFICIENCY ANEMIA, UNSPECIFIED 04/07/2017 GALLO HUMMEL MD Ot R68.89 OTHER GENERAL SYMPTOMS AND SIGNS 04/07/2017 GALLO HUMMEL MD Ot Z79.899 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 HAMPER 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 (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) 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 THERAPY 04/08/2017 GALLO HUMMEL MD E Ot D64.9 ANEMIA, UNSPECIFIED 04/08/2017 GALLO HUMMEL MD Ot D64.9 ANEMIA, UNSPECIFIED 04/16/2017 GALLO HUMMEL MD E Ot D64.9 ANEMIA, UNSPECIFIED 04/16/2017 GALLO HUMMEL MD E Ot R53.83 OTHER FATIGUE 04/17/2017 WOODY CARBONE MD Ot D64.9 ANEMIA, UNSPECIFIED 04/19/2017 GALLO HUMMEL MD Ot D64.9 ANEMIA, UNSPECIFIED 04/19/2017 GALLO HUMMEL MD E Ot R53.83 OTHER FATIGUE 04/22/2017 GALLO HUMMEL MD E Ot D64.9 ANEMIA, UNSPECIFIED 04/30/2017 GALLO HUMMEL MD Ot D64.9 ANEMIA, UNSPECIFIED 05/12/2017 WOODY CARBONE MD A Ot D64.9 ANEMIA, UNSPECIFIED 05/12/2017 WOODY CARBONE MD A Ot R68.89 OTHER GENERAL SYMPTOMS AND SIGNS 05/12/2017 WOODY CARBONE MD Ot Z79.899 OTHER HAMPER MAKER (CURRENT) DRUG THERAPY 05/19/2017 GALLO HUMMEL MD, Ot D64.9 ANEMIA, UNSPECIFIED 05/19/2017 GALLO HUMMEL MD Ot R53.83 OTHER FATIGUE 05/19/2017 GALLO HUMMEL MD, Ot D64.9 ANEMIA, UNSPECIFIED 05/19/2017 GALLO HUMMEL MD Ot R53.83 OTHER FATIGUE 05/20/2017 RAF GOMEZ, WOODY Quiroz Ot D50.9 IRON DEFICIENCY ANEMIA, UNSPECIFIED 05/21/2017 GALLO HUMMEL MD, Ot D64.9 ANEMIA, UNSPECIFIED Procedures Code Description Performed By Performed On [id number] EXCISION OF ESOPHAGOGASTRIC JUNCTION, EN 09/17/2016 [id number] EXCISION OF STOMACH, PYLORUS, ENDO, DIAG 09/17/2016 [id number] INSPECTION OF LOWER INTESTINAL TRACT, EN 09/17/2016 Results Test Result Range Complete blood count (CBC) with automated white blood cell (WBC) differential - 12/05/15 21:45 Blood leukocytes automated count (number/volume) 9.7 10*3/uL 4.3-11.0 Blood erythrocytes automated count (number/volume) 4.08 10*6/uL 4.35-5.85 Venous blood hemoglobin measurement (mass/volume) 13.1 g/dL 11.5-16.0 Blood hematocrit (volume fraction) 38 % 35-52 Automated erythrocyte mean corpuscular volume 94 [foz_us] 80-99 Automated erythrocyte mean corpuscular hemoglobin (mass per erythrocyte) 32 pg 25-34 Automated erythrocyte mean corpuscular hemoglobin concentration measurement ( mass/volume) 34 g/dL 32-36 Automated erythrocyte distribution width ratio 13.9 % 10.0-14.5 Automated blood platelet count (count/volume) 258 10*3/uL 130-400 Automated blood platelet mean volume measurement 9.3 [foz_us] 7.4-10.4 Automated blood neutrophils/100 leukocytes 75 % 42-75 Automated blood lymphocytes/100 leukocytes 16 % 12-44 Blood monocytes/100 leukocytes 9 % 0-12 Automated blood eosinophils/100 leukocytes 1 % 0-10 Automated blood basophils/100 leukocytes 0 % 0-10 Blood neutrophils automated count (number/volume) 7.3 10*3 1.8-7.8 Blood lymphocytes automated count (number/volume) 1.5 10*3 1.0-4.0 Blood monocytes automated count (number/volume) 0.9 10*3 0.0-1.0 Automated eosinophil count 0.1 10*3/uL 0.0-0.3 Automated blood basophil count (count/volume) 0.0 10*3/uL 0.0-0.1 Comprehensive metabolic panel - 12/05/15 21:45 Serum or plasma sodium measurement (moles/volume) 136 mmol/L 135-145 Serum or plasma potassium measurement (moles/volume) 4.1 mmol/L 3.6-5.0 Serum or plasma chloride measurement (moles/volume) 101 mmol/L 98-107 Carbon dioxide 21 mmol/L 21-32 Serum or plasma anion gap determination (moles/volume) 14 mmol/L 5-14 Serum or plasma urea nitrogen measurement (mass/volume) 16 mg/dL 7-18 Serum or plasma creatinine measurement (mass/volume) 0.72 mg/dL 0.60-1.30 Serum or plasma urea nitrogen/creatinine mass ratio 22 NRG Serum or plasma creatinine measurement with calculation of estimated glomerular filtration rate > NRG Serum or plasma glucose measurement (mass/volume) 94 mg/dL 70-105 Serum or plasma calcium measurement (mass/volume) 9.0 mg/dL 8.5-10.1 Serum or plasma total bilirubin measurement (mass/volume) 0.8 mg/dL 0.1-1.0 Serum or plasma alkaline phosphatase measurement (enzymatic activity/volume) 48 U/L 40-136 Serum or plasma aspartate aminotransferase measurement (enzymatic activity/ volume) 18 U/L 5-34 Serum or plasma alanine aminotransferase measurement (enzymatic activity/volume ) 14 U/L 0-55 Serum or plasma protein measurement (mass/volume) 5.6 g/dL 6.4-8.2 Serum or plasma albumin measurement (mass/volume) 3.1 g/dL 3.2-4.5 Serum or plasma amylase measurement (enzymatic activity/volume) - 12/05/15 21: 45 Serum or plasma amylase measurement (enzymatic activity/volume) 46 U /L 25-125 Lipase - 12/05/15 21:45 Lipase 8 U/L 8-78 Complete urinalysis with reflex to culture - 12/06/15 00:17 Urine color determination YELLOW NRG Urine clarity determination CLEAR NRG Urine pH measurement by test strip 7 5-9 Specific gravity of urine by test strip 1.010 1.016- 1.022 Urine protein assay by test strip, semi-quantitative NEGATIVE NEGATIVE Urine glucose detection by automated test strip NEGATIVE NEGATIVE Erythrocytes detection in urine sediment by light microscopy NEGATIVE NEGATIVE Urine ketones detection by automated test strip NEGATIVE NEGATIVE Urine nitrite detection by test strip NEGATIVE NEGATIVE Urine total bilirubin detection by test strip NEGATIVE NEGATIVE Urine urobilinogen measurement by automated test strip (mass/volume) NORMAL NORMAL Urine leukocyte esterase detection by dipstick 2+ NEGATIVE Automated urine sediment erythrocyte count by microscopy (number/high power field) NONE NRG Automated urine sediment leukocyte count by microscopy (number/high power field ) [HPF] NRG Bacteria detection in urine sediment by light microscopy TRACE NRG Squamous epithelial cells detection in urine sediment by light microscopy 2-5 NRG Crystals detection in urine sediment by light microscopy NONE NRG Casts detection in urine sediment by light microscopy NONE NRG Mucus detection in urine sediment by light microscopy NEGATIVE NRG Complete urinalysis with reflex to culture YES NRG Bacterial urine culture - 12/06/15 00:17 URINE CULTURE RESULTS <10,000/ML NRG Complete blood count (CBC) with automated white blood cell (WBC) differential - 12/06/15 04:26 Blood leukocytes automated count (number/volume) 7.0 10*3/uL 4.3-11.0 Blood erythrocytes automated count (number/volume) 3.77 10*6/uL 4.35-5.85 Venous blood hemoglobin measurement (mass/volume) 12.0 g/dL 11.5-16.0 Blood hematocrit (volume fraction) 36 % 35-52 Automated erythrocyte mean corpuscular volume 94 [foz_us] 80-99 Automated erythrocyte mean corpuscular hemoglobin (mass per erythrocyte) 32 pg 25-34 Automated erythrocyte mean corpuscular hemoglobin concentration measurement ( mass/volume) 34 g/dL 32-36 Automated erythrocyte distribution width ratio 13.8 % 10.0-14.5 Automated blood platelet count (count/volume) 214 10*3/uL 130-400 Automated blood platelet mean volume measurement 9.6 [foz_us] 7.4-10.4 Automated blood neutrophils/100 leukocytes 66 % 42-75 Automated blood lymphocytes/100 leukocytes 20 % 12-44 Blood monocytes/100 leukocytes 13 % 0-12 Automated blood eosinophils/100 leukocytes 1 % 0-10 Automated blood basophils/100 leukocytes 1 % 0-10 Blood neutrophils automated count (number/volume) 4.6 10*3 1.8-7.8 Blood lymphocytes automated count (number/volume) 1.4 10*3 1.0-4.0 Blood monocytes automated count (number/volume) 0.9 10*3 0.0-1.0 Automated eosinophil count 0.1 10*3/uL 0.0-0.3 Automated blood basophil count (count/volume) 0.1 10*3/uL 0.0-0.1 Comprehensive metabolic panel - 12/06/15 04:26 Serum or plasma sodium measurement (moles/volume) 134 mmol/L 135-145 Serum or plasma potassium measurement (moles/volume) 4.1 mmol/L 3.6-5.0 Serum or plasma chloride measurement (moles/volume) 103 mmol/L 98-107 Carbon dioxide 22 mmol/L 21-32 Serum or plasma anion gap determination (moles/volume) 9 mmol/L 5-14 Serum or plasma urea nitrogen measurement (mass/volume) 15 mg/dL 7-18 Serum or plasma creatinine measurement (mass/volume) 0.65 mg/dL 0.60-1.30 Serum or plasma urea nitrogen/creatinine mass ratio 23 NRG Serum or plasma creatinine measurement with calculation of estimated glomerular filtration rate > NRG Serum or plasma glucose measurement (mass/volume) 102 mg/dL 70-105 Serum or plasma calcium measurement (mass/volume) 8.2 mg/dL 8.5-10.1 Serum or plasma total bilirubin measurement (mass/volume) 0.6 mg/dL 0.1-1.0 Serum or plasma alkaline phosphatase measurement (enzymatic activity/volume) 39 U/L 40-136 Serum or plasma aspartate aminotransferase measurement (enzymatic activity/ volume) 15 U/L 5-34 Serum or plasma alanine aminotransferase measurement (enzymatic activity/volume ) 11 U/L 0-55 Serum or plasma protein measurement (mass/volume) 4.4 g/dL 6.4-8.2 Serum or plasma albumin measurement (mass/volume) 2.5 g/dL 3.2-4.5 Complete blood count (CBC) with automated white blood cell (WBC) differential - 12/07/15 06:35 Blood leukocytes automated count (number/volume) 5.5 10*3/uL 4.3-11.0 Blood erythrocytes automated count (number/volume) 3.69 10*6/uL 4.35-5.85 Venous blood hemoglobin measurement (mass/volume) 11.8 g/dL 11.5-16.0 Blood hematocrit (volume fraction) 35 % 35-52 Automated erythrocyte mean corpuscular volume 95 [foz_us] 80-99 Automated erythrocyte mean corpuscular hemoglobin (mass per erythrocyte) 32 pg 25-34 Automated erythrocyte mean corpuscular hemoglobin concentration measurement ( mass/volume) 34 g/dL 32-36 Automated erythrocyte distribution width ratio 13.9 % 10.0-14.5 Automated blood platelet count (count/volume) 230 10*3/uL 130-400 Automated blood platelet mean volume measurement 9.0 [foz_us] 7.4-10.4 Automated blood neutrophils/100 leukocytes 66 % 42-75 Automated blood lymphocytes/100 leukocytes 19 % 12-44 Blood monocytes/100 leukocytes 14 % 0-12 Automated blood eosinophils/100 leukocytes 1 % 0-10 Automated blood basophils/100 leukocytes 1 % 0-10 Blood neutrophils automated count (number/volume) 3.6 10*3 1.8-7.8 Blood lymphocytes automated count (number/volume) 1.0 10*3 1.0-4.0 Blood monocytes automated count (number/volume) 0.8 10*3 0.0-1.0 Automated eosinophil count 0.0 10*3/uL 0.0-0.3 Automated blood basophil count (count/volume) 0.0 10*3/uL 0.0-0.1 Comprehensive metabolic panel - 12/07/15 06:35 Serum or plasma sodium measurement (moles/volume) 135 mmol/L 135-145 Serum or plasma potassium measurement (moles/volume) 3.7 mmol/L 3.6-5.0 Serum or plasma chloride measurement (moles/volume) 105 mmol/L 98-107 Carbon dioxide 18 mmol/L 21-32 Serum or plasma anion gap determination (moles/volume) 12 mmol/L 5-14 Serum or plasma urea nitrogen measurement (mass/volume) 12 mg/dL 7-18 Serum or plasma creatinine measurement (mass/volume) 0.61 mg/dL 0.60-1.30 Serum or plasma urea nitrogen/creatinine mass ratio 20 NRG Serum or plasma creatinine measurement with calculation of estimated glomerular filtration rate > NRG Serum or plasma glucose measurement (mass/volume) 71 mg/dL 70-105 Serum or plasma calcium measurement (mass/volume) 7.7 mg/dL 8.5-10.1 Serum or plasma total bilirubin measurement (mass/volume) 0.5 mg/dL 0.1-1.0 Serum or plasma alkaline phosphatase measurement (enzymatic activity/volume) 39 U/L 40-136 Serum or plasma aspartate aminotransferase measurement (enzymatic activity/ volume) 17 U/L 5-34 Serum or plasma alanine aminotransferase measurement (enzymatic activity/volume ) 11 U/L 0-55 Serum or plasma protein measurement (mass/volume) 4.4 g/dL 6.4-8.2 Serum or plasma albumin measurement (mass/volume) 2.4 g/dL 3.2-4.5 Complete blood count (CBC) with automated white blood cell (WBC) differential - 07/28/16 08:56 Blood leukocytes automated count (number/volume) 8.4 10*3/uL 4.3-11.0 Blood erythrocytes automated count (number/volume) 3.56 10*6/uL 4.35-5.85 Venous blood hemoglobin measurement (mass/volume) 10.3 g/dL 11.5-16.0 Blood hematocrit (volume fraction) 32 % 35-52 Automated erythrocyte mean corpuscular volume 91 [foz_us] 80-99 Automated erythrocyte mean corpuscular hemoglobin (mass per erythrocyte) 29 pg 25-34 Automated erythrocyte mean corpuscular hemoglobin concentration measurement ( mass/volume) 32 g/dL 32-36 Automated erythrocyte distribution width ratio 16.0 % 10.0-14.5 Automated blood platelet count (count/volume) 398 10*3/uL 130-400 Automated blood platelet mean volume measurement 8.6 [foz_us] 7.4-10.4 Automated blood neutrophils/100 leukocytes 78 % 42-75 Automated blood lymphocytes/100 leukocytes 13 % 12-44 Blood monocytes/100 leukocytes 9 % 0-12 Automated blood eosinophils/100 leukocytes 0 % 0-10 Automated blood basophils/100 leukocytes 1 % 0-10 Blood neutrophils automated count (number/volume) 6.6 10*3 1.8-7.8 Blood lymphocytes automated count (number/volume) 1.1 10*3 1.0-4.0 Blood monocytes automated count (number/volume) 0.7 10*3 0.0-1.0 Automated eosinophil count 0.0 10*3/uL 0.0-0.3 Automated blood basophil count (count/volume) 0.0 10*3/uL 0.0-0.1 PT panel in platelet poor plasma by coagulation assay - 07/28/16 08:56 Prothrombin time (PT) in platelet poor plasma by coagulation assay 12.2 s 12.2-14.7 INR in platelet poor plasma or blood by coagulation assay 0.9 0.8-1.4 Activated partial thromboplastin time (aPTT) in platelet poor plasma bycoagulation assay - 07/28/16 08:56 Activated partial thromboplastin time (aPTT) in platelet poor plasma bycoagulation assay 28 s 24-35 Comprehensive metabolic panel - 07/28/16 08:56 Serum or plasma sodium measurement (moles/volume) 136 mmol/L 135-145 Serum or plasma potassium measurement (moles/volume) 4.0 mmol/L 3.6-5.0 Serum or plasma chloride measurement (moles/volume) 99 mmol/L 98-107 Carbon dioxide 28 mmol/L 21-32 Serum or plasma anion gap determination (moles/volume) 9 mmol/L 5-14 Serum or plasma urea nitrogen measurement (mass/volume) 19 mg/dL 7-18 Serum or plasma creatinine measurement (mass/volume) 0.89 mg/dL 0.60-1.30 Serum or plasma urea nitrogen/creatinine mass ratio 21 NRG Serum or plasma creatinine measurement with calculation of estimated glomerular filtration rate > NRG Serum or plasma glucose measurement (mass/volume) 112 mg/dL 70-105 Serum or plasma calcium measurement (mass/volume) 8.6 mg/dL 8.5-10.1 Serum or plasma total bilirubin measurement (mass/volume) 0.3 mg/dL 0.1-1.0 Serum or plasma alkaline phosphatase measurement (enzymatic activity/volume) 61 U/L 40-136 Serum or plasma aspartate aminotransferase measurement (enzymatic activity/ volume) 19 U/L 5-34 Serum or plasma alanine aminotransferase measurement (enzymatic activity/volume ) 13 U/L 0-55 Serum or plasma protein measurement (mass/volume) 5.8 g/dL 6.4-8.2 Serum or plasma albumin measurement (mass/volume) 2.8 g/dL 3.2-4.5 Magnesium - 07/28/16 08:56 Magnesium 1.6 mg/dL 1.8-2.4 Serum or plasma thyrotropin measurement by detection limit <=0.05 miu/l (units/ volume) - 07/28/16 08:56 Serum or plasma thyrotropin measurement by detection limit <=0.05 miu/l (units/ volume) 2.57 u[iU]/mL 0.35-4.94 Serum or plasma creatine kinase measurement (enzymatic activity/volume) - 07/28 08:56 Serum or plasma creatine kinase measurement (enzymatic activity/volume) 24 U/L 29-168 Complete urinalysis with reflex to culture - 07/28/16 11:22 Urine color determination YELLOW NRG Urine clarity determination CLEAR NRG Urine pH measurement by test strip 5 5-9 Specific gravity of urine by test strip 1.020 1.016- 1.022 Urine protein assay by test strip, semi-quantitative 1+ NEGATIVE Urine glucose detection by automated test strip NEGATIVE NEGATIVE Erythrocytes detection in urine sediment by light microscopy NEGATIVE NEGATIVE Urine ketones detection by automated test strip 1+ NEGATIVE Urine nitrite detection by test strip NEGATIVE NEGATIVE Urine total bilirubin detection by test strip NEGATIVE NEGATIVE Urine urobilinogen measurement by automated test strip (mass/volume) 1 mg/dL NORMAL Urine leukocyte esterase detection by dipstick 1+ NEGATIVE Automated urine sediment erythrocyte count by microscopy (number/high power field) NONE NRG Automated urine sediment leukocyte count by microscopy (number/high power field ) [HPF] NRG Bacteria detection in urine sediment by light microscopy MODERATE NRG Squamous epithelial cells detection in urine sediment by light microscopy NONE NRG Crystals detection in urine sediment by light microscopy NONE NRG Casts detection in urine sediment by light microscopy NONE NRG Mucus detection in urine sediment by light microscopy LARGE NRG Complete urinalysis with reflex to culture YES NRG Bacterial urine culture - 07/28/16 11:22 URINE CULTURE RESULTS <10,000/ML NRG RED CELLS LEUKO REDUCED AS1 - 08/27/16 08:19 RED CELLS LEUKO REDUCED AS1 TRANSFUSED 08/27/16 1154 NRG Blood type T Indirect antibody screen panel - 08/27/16 08:19 ABO+Rh group BP NRG Transfusion band number [id number] NRG Blood group antibody screen NEGATIVE NRG Complete blood count (CBC) with automated white blood cell (WBC) differential - 09/15/16 00:31 Blood leukocytes automated count (number/volume) 12.5 10*3/uL 4.3-11.0 Blood erythrocytes automated count (number/volume) 3.10 10*6/uL 4.35-5.85 Venous blood hemoglobin measurement (mass/volume) 9.1 g/dL 11.5-16.0 Blood hematocrit (volume fraction) 28 % 35-52 Automated erythrocyte mean corpuscular volume 89 [foz_us] 80-99 Automated erythrocyte mean corpuscular hemoglobin (mass per erythrocyte) 29 pg 25-34 Automated erythrocyte mean corpuscular hemoglobin concentration measurement ( mass/volume) 33 g/dL 32-36 Automated erythrocyte distribution width ratio 17.0 % 10.0-14.5 Automated blood platelet count (count/volume) 357 10*3/uL 130-400 Automated blood platelet mean volume measurement 8.7 [foz_us] 7.4-10.4 Automated blood neutrophils/100 leukocytes 77 % 42-75 Automated blood lymphocytes/100 leukocytes 12 % 12-44 Blood monocytes/100 leukocytes 11 % 0-12 Automated blood eosinophils/100 leukocytes 0 % 0-10 Automated blood basophils/100 leukocytes 0 % 0-10 Blood neutrophils automated count (number/volume) 9.6 10*3 1.8-7.8 Blood lymphocytes automated count (number/volume) 1.5 10*3 1.0-4.0 Blood monocytes automated count (number/volume) 1.3 10*3 0.0-1.0 Automated eosinophil count 0.0 10*3/uL 0.0-0.3 Automated blood basophil count (count/volume) 0.0 10*3/uL 0.0-0.1 PT panel in platelet poor plasma by coagulation assay - 09/15/16 00:31 Prothrombin time (PT) in platelet poor plasma by coagulation assay 12.9 s 12.2-14.7 INR in platelet poor plasma or blood by coagulation assay 1.0 0.8-1.4 Activated partial thromboplastin time (aPTT) in platelet poor plasma bycoagulation assay - 09/15/16 00:31 Activated partial thromboplastin time (aPTT) in platelet poor plasma bycoagulation assay 23 s 24-35 Comprehensive metabolic panel - 09/15/16 00:31 Serum or plasma sodium measurement (moles/volume) 128 mmol/L 135-145 Serum or plasma potassium measurement (moles/volume) 4.3 mmol/L 3.6-5.0 Serum or plasma chloride measurement (moles/volume) 92 mmol/L 98-107 Carbon dioxide 25 mmol/L 21-32 Serum or plasma anion gap determination (moles/volume) 11 mmol/L 5-14 Serum or plasma urea nitrogen measurement (mass/volume) 23 mg/dL 7-18 Serum or plasma creatinine measurement (mass/volume) 1.08 mg/dL 0.60-1.30 Serum or plasma urea nitrogen/creatinine mass ratio 21 NRG Serum or plasma creatinine measurement with calculation of estimated glomerular filtration rate 49 NRG Serum or plasma glucose measurement (mass/volume) 109 mg/dL 70-105 Serum or plasma calcium measurement (mass/volume) 8.1 mg/dL 8.5-10.1 Serum or plasma total bilirubin measurement (mass/volume) 0.4 mg/dL 0.1-1.0 Serum or plasma alkaline phosphatase measurement (enzymatic activity/volume) 70 U/L 40-136 Serum or plasma aspartate aminotransferase measurement (enzymatic activity/ volume) 17 U/L 5-34 Serum or plasma alanine aminotransferase measurement (enzymatic activity/volume ) 14 U/L 0-55 Serum or plasma protein measurement (mass/volume) 5.6 g/dL 6.4-8.2 Serum or plasma albumin measurement (mass/volume) 3.0 g/dL 3.2-4.5 Magnesium - 09/15/16 00:31 Magnesium 1.8 mg/dL 1.8-2.4 Complete blood count (CBC) with automated white blood cell (WBC) differential - 09/15/16 08:18 Blood leukocytes automated count (number/volume) 10.7 10*3/uL 4.3-11.0 Blood erythrocytes automated count (number/volume) 2.49 10*6/uL 4.35-5.85 Venous blood hemoglobin measurement (mass/volume) 7.2 g/dL 11.5-16.0 Blood hematocrit (volume fraction) 22 % 35-52 Automated erythrocyte mean corpuscular volume 90 [foz_us] 80-99 Automated erythrocyte mean corpuscular hemoglobin (mass per erythrocyte) 29 pg 25-34 Automated erythrocyte mean corpuscular hemoglobin concentration measurement ( mass/volume) 32 g/dL 32-36 Automated erythrocyte distribution width ratio 17.1 % 10.0-14.5 Automated blood platelet count (count/volume) 260 10*3/uL 130-400 Automated blood platelet mean volume measurement 8.5 [foz_us] 7.4-10.4 Automated blood neutrophils/100 leukocytes 74 % 42-75 Automated blood lymphocytes/100 leukocytes 16 % 12-44 Blood monocytes/100 leukocytes 10 % 0-12 Automated blood eosinophils/100 leukocytes 0 % 0-10 Automated blood basophils/100 leukocytes 0 % 0-10 Blood neutrophils automated count (number/volume) 7.9 10*3 1.8-7.8 Blood lymphocytes automated count (number/volume) 1.7 10*3 1.0-4.0 Blood monocytes automated count (number/volume) 1.0 10*3 0.0-1.0 Automated eosinophil count 0.0 10*3/uL 0.0-0.3 Automated blood basophil count (count/volume) 0.0 10*3/uL 0.0-0.1 Comprehensive metabolic panel - 09/15/16 08:18 Serum or plasma sodium measurement (moles/volume) 129 mmol/L 135-145 Serum or plasma potassium measurement (moles/volume) 4.0 mmol/L 3.6-5.0 Serum or plasma chloride measurement (moles/volume) 96 mmol/L 98-107 Carbon dioxide 27 mmol/L 21-32 Serum or plasma anion gap determination (moles/volume) 6 mmol/L 5-14 Serum or plasma urea nitrogen measurement (mass/volume) 25 mg/dL 7-18 Serum or plasma creatinine measurement (mass/volume) 0.94 mg/dL 0.60-1.30 Serum or plasma urea nitrogen/creatinine mass ratio 27 NRG Serum or plasma creatinine measurement with calculation of estimated glomerular filtration rate 57 NRG Serum or plasma glucose measurement (mass/volume) 84 mg/dL 70-105 Serum or plasma calcium measurement (mass/volume) 7.6 mg/dL 8.5-10.1 Serum or plasma total bilirubin measurement (mass/volume) 0.5 mg/dL 0.1-1.0 Serum or plasma alkaline phosphatase measurement (enzymatic activity/volume) 56 U/L 40-136 Serum or plasma aspartate aminotransferase measurement (enzymatic activity/ volume) 13 U/L 5-34 Serum or plasma alanine aminotransferase measurement (enzymatic activity/volume ) 11 U/L 0-55 Serum or plasma protein measurement (mass/volume) 4.5 g/dL 6.4-8.2 Serum or plasma albumin measurement (mass/volume) 2.5 g/dL 3.2-4.5 RED CELLS LEUKO REDUCED AS1 - 09/15/16 16:04 RED CELLS LEUKO REDUCED AS1 TRANSFUSED 09/15/166 NRG Blood type T Indirect antibody screen panel - 09/15/16 16:04 ABO+Rh group BP NRG Transfusion band number [id number] NRG Blood group antibody screen NEGATIVE NRG Complete urinalysis with reflex to culture - 09/15/16 16:25 Urine color determination YELLOW NRG Urine clarity determination CLEAR NRG Urine pH measurement by test strip 5 5-9 Specific gravity of urine by test strip 1.015 1.016- 1.022 Urine protein assay by test strip, semi-quantitative 1+ NEGATIVE Urine glucose detection by automated test strip NEGATIVE NEGATIVE Erythrocytes detection in urine sediment by light microscopy NEGATIVE NEGATIVE Urine ketones detection by automated test strip NEGATIVE NEGATIVE Urine nitrite detection by test strip NEGATIVE NEGATIVE Urine total bilirubin detection by test strip NEGATIVE NEGATIVE Urine urobilinogen measurement by automated test strip (mass/volume) NORMAL NORMAL Urine leukocyte esterase detection by dipstick 1+ NEGATIVE Automated urine sediment erythrocyte count by microscopy (number/high power field) NONE NRG Automated urine sediment leukocyte count by microscopy (number/high power field ) RARE NRG Bacteria detection in urine sediment by light microscopy TRACE NRG Squamous epithelial cells detection in urine sediment by light microscopy 2-5 NRG Crystals detection in urine sediment by light microscopy NONE NRG Casts detection in urine sediment by light microscopy PRESENT NRG Mucus detection in urine sediment by light microscopy NEGATIVE NRG Complete urinalysis with reflex to culture NO NRG Hyaline casts detection in urine sediment by light microscopy >50 NRG Stool occult blood screen - 09/16/16 02:26 Stool gastrointestinal hemoglobin detection POSITIVE NEGATIVE Automated blood complete blood count (hemogram) panel - 09/16/16 06:15 Blood leukocytes automated count (number/volume) 10.5 10*3/uL 4.3-11.0 Blood erythrocytes automated count (number/volume) 3.28 10*6/uL 4.35-5.85 Venous blood hemoglobin measurement (mass/volume) 9.5 g/dL 11.5-16.0 Blood hematocrit (volume fraction) 29 % 35-52 Automated erythrocyte mean corpuscular volume 89 [foz_us] 80-99 Automated erythrocyte mean corpuscular hemoglobin (mass per erythrocyte) 29 pg 25-34 Automated erythrocyte mean corpuscular hemoglobin concentration measurement ( mass/volume) 32 g/dL 32-36 Automated erythrocyte distribution width ratio 16.3 % 10.0-14.5 Automated blood platelet count (count/volume) 195 10*3/uL 130-400 Automated blood platelet mean volume measurement 9.0 [foz_us] 7.4-10.4 Comprehensive metabolic panel - 09/16/16 06:15 Serum or plasma sodium measurement (moles/volume) 132 mmol/L 135-145 Serum or plasma potassium measurement (moles/volume) 4.7 mmol/L 3.6-5.0 Serum or plasma chloride measurement (moles/volume) 102 mmol/L 98-107 Carbon dioxide 24 mmol/L 21-32 Serum or plasma anion gap determination (moles/volume) 6 mmol/L 5-14 Serum or plasma urea nitrogen measurement (mass/volume) 28 mg/dL 7-18 Serum or plasma creatinine measurement (mass/volume) 0.74 mg/dL 0.60-1.30 Serum or plasma urea nitrogen/creatinine mass ratio 38 NRG Serum or plasma creatinine measurement with calculation of estimated glomerular filtration rate > NRG Serum or plasma glucose measurement (mass/volume) 86 mg/dL 70-105 Serum or plasma calcium measurement (mass/volume) 7.5 mg/dL 8.5-10.1 Serum or plasma total bilirubin measurement (mass/volume) 0.7 mg/dL 0.1-1.0 Serum or plasma alkaline phosphatase measurement (enzymatic activity/volume) 49 U/L 40-136 Serum or plasma aspartate aminotransferase measurement (enzymatic activity/ volume) 15 U/L 5-34 Serum or plasma alanine aminotransferase measurement (enzymatic activity/volume ) 11 U/L 0-55 Serum or plasma protein measurement (mass/volume) 4.2 g/dL 6.4-8.2 Serum or plasma albumin measurement (mass/volume) 2.2 g/dL 3.2-4.5 Automated blood complete blood count (hemogram) panel - 09/17/16 06:17 Blood leukocytes automated count (number/volume) 7.7 10*3/uL 4.3-11.0 Blood erythrocytes automated count (number/volume) 2.96 10*6/uL 4.35-5.85 Venous blood hemoglobin measurement (mass/volume) 8.7 g/dL 11.5-16.0 Blood hematocrit (volume fraction) 27 % 35-52 Automated erythrocyte mean corpuscular volume 92 [foz_us] 80-99 Automated erythrocyte mean corpuscular hemoglobin (mass per erythrocyte) 29 pg 25-34 Automated erythrocyte mean corpuscular hemoglobin concentration measurement ( mass/volume) 32 g/dL 32-36 Automated erythrocyte distribution width ratio 17.4 % 10.0-14.5 Automated blood platelet count (count/volume) 200 10*3/uL 130-400 Automated blood platelet mean volume measurement 9.2 [foz_us] 7.4-10.4 Whole blood basic metabolic panel - 09/17/16 06:17 Serum or plasma sodium measurement (moles/volume) 135 mmol/L 135-145 Serum or plasma potassium measurement (moles/volume) 3.8 mmol/L 3.6-5.0 Serum or plasma chloride measurement (moles/volume) 105 mmol/L 98-107 Carbon dioxide 24 mmol/L 21-32 Serum or plasma anion gap determination (moles/volume) 6 mmol/L 5-14 Serum or plasma urea nitrogen measurement (mass/volume) 20 mg/dL 7-18 Serum or plasma creatinine measurement (mass/volume) 0.57 mg/dL 0.60-1.30 Serum or plasma urea nitrogen/creatinine mass ratio 35 NRG Serum or plasma creatinine measurement with calculation of estimated glomerular filtration rate > NRG Serum or plasma glucose measurement (mass/volume) 74 mg/dL 70-105 Serum or plasma calcium measurement (mass/volume) 7.1 mg/dL 8.5-10.1 Automated blood complete blood count (hemogram) panel - 09/18/16 05:29 Blood leukocytes automated count (number/volume) 6.8 10*3/uL 4.3-11.0 Blood erythrocytes automated count (number/volume) 2.90 10*6/uL 4.35-5.85 Venous blood hemoglobin measurement (mass/volume) 8.5 g/dL 11.5-16.0 Blood hematocrit (volume fraction) 27 % 35-52 Automated erythrocyte mean corpuscular volume 93 [foz_us] 80-99 Automated erythrocyte mean corpuscular hemoglobin (mass per erythrocyte) 29 pg 25-34 Automated erythrocyte mean corpuscular hemoglobin concentration measurement ( mass/volume) 32 g/dL 32-36 Automated erythrocyte distribution width ratio 17.6 % 10.0-14.5 Automated blood platelet count (count/volume) 216 10*3/uL 130-400 Automated blood platelet mean volume measurement 9.0 [foz_us] 7.4-10.4 Whole blood basic metabolic panel - 09/18/16 05:29 Serum or plasma sodium measurement (moles/volume) 135 mmol/L 135-145 Serum or plasma potassium measurement (moles/volume) 4.1 mmol/L 3.6-5.0 Serum or plasma chloride measurement (moles/volume) 107 mmol/L 98-107 Carbon dioxide 21 mmol/L 21-32 Serum or plasma anion gap determination (moles/volume) 7 mmol/L 5-14 Serum or plasma urea nitrogen measurement (mass/volume) 13 mg/dL 7-18 Serum or plasma creatinine measurement (mass/volume) 0.52 mg/dL 0.60-1.30 Serum or plasma urea nitrogen/creatinine mass ratio 25 NRG Serum or plasma creatinine measurement with calculation of estimated glomerular filtration rate > NRG Serum or plasma glucose measurement (mass/volume) 76 mg/dL 70-105 Serum or plasma calcium measurement (mass/volume) 7.3 mg/dL 8.5-10.1 Automated blood complete blood count (hemogram) panel - 09/19/16 05:30 Blood leukocytes automated count (number/volume) 7.4 10*3/uL 4.3-11.0 Blood erythrocytes automated count (number/volume) 2.71 10*6/uL 4.35-5.85 Venous blood hemoglobin measurement (mass/volume) 8.1 g/dL 11.5-16.0 Blood hematocrit (volume fraction) 25 % 35-52 Automated erythrocyte mean corpuscular volume 93 [foz_us] 80-99 Automated erythrocyte mean corpuscular hemoglobin (mass per erythrocyte) 30 pg 25-34 Automated erythrocyte mean corpuscular hemoglobin concentration measurement ( mass/volume) 32 g/dL 32-36 Automated erythrocyte distribution width ratio 17.5 % 10.0-14.5 Automated blood platelet count (count/volume) 227 10*3/uL 130-400 Automated blood platelet mean volume measurement 9.2 [foz_us] 7.4-10.4 Whole blood basic metabolic panel - 09/19/16 05:30 Serum or plasma sodium measurement (moles/volume) 134 mmol/L 135-145 Serum or plasma potassium measurement (moles/volume) 3.7 mmol/L 3.6-5.0 Serum or plasma chloride measurement (moles/volume) 104 mmol/L 98-107 Carbon dioxide 20 mmol/L 21-32 Serum or plasma anion gap determination (moles/volume) 10 mmol/L 5-14 Serum or plasma urea nitrogen measurement (mass/volume) 11 mg/dL 7-18 Serum or plasma creatinine measurement (mass/volume) 0.54 mg/dL 0.60-1.30 Serum or plasma urea nitrogen/creatinine mass ratio 20 NRG Serum or plasma creatinine measurement with calculation of estimated glomerular filtration rate > NRG Serum or plasma glucose measurement (mass/volume) 92 mg/dL 70-105 Serum or plasma calcium measurement (mass/volume) 6.7 mg/dL 8.5-10.1 RED CELLS LEUKO REDUCED AS1 - 09/19/16 12:30 RED CELLS LEUKO REDUCED AS1 TRANSFUSED 09/19/16 1315 NRG Blood type T Indirect antibody screen panel - 09/19/16 12:30 ABO+Rh group BP NRG Transfusion band number [id number] NRG Blood group antibody screen NEGATIVE NRG Complete blood count (CBC) with automated white blood cell (WBC) differential - 09/23/16 07:27 Blood leukocytes automated count (number/volume) 8.3 10*3/uL 4.3-11.0 Blood erythrocytes automated count (number/volume) 3.24 10*6/uL 4.35-5.85 Venous blood hemoglobin measurement (mass/volume) 9.7 g/dL 11.5-16.0 Blood hematocrit (volume fraction) 30 % 35-52 Automated erythrocyte mean corpuscular volume 91 [foz_us] 80-99 Automated erythrocyte mean corpuscular hemoglobin (mass per erythrocyte) 30 pg 25-34 Automated erythrocyte mean corpuscular hemoglobin concentration measurement ( mass/volume) 33 g/dL 32-36 Automated erythrocyte distribution width ratio 17.2 % 10.0-14.5 Automated blood platelet count (count/volume) 302 10*3/uL 130-400 Automated blood platelet mean volume measurement 8.5 [foz_us] 7.4-10.4 Automated blood neutrophils/100 leukocytes 81 % 42-75 Automated blood lymphocytes/100 leukocytes 10 % 12-44 Blood monocytes/100 leukocytes 8 % 0-12 Automated blood eosinophils/100 leukocytes 1 % 0-10 Automated blood basophils/100 leukocytes 0 % 0-10 Blood neutrophils automated count (number/volume) 6.8 10*3 1.8-7.8 Blood lymphocytes automated count (number/volume) 0.8 10*3 1.0-4.0 Blood monocytes automated count (number/volume) 0.6 10*3 0.0-1.0 Automated eosinophil count 0.1 10*3/uL 0.0-0.3 Automated blood basophil count (count/volume) 0.0 10*3/uL 0.0-0.1 Comprehensive metabolic panel - 09/23/16 07:27 Serum or plasma sodium measurement (moles/volume) 131 mmol/L 135-145 Serum or plasma potassium measurement (moles/volume) 3.5 mmol/L 3.6-5.0 Serum or plasma chloride measurement (moles/volume) 99 mmol/L 98-107 Carbon dioxide 23 mmol/L 21-32 Serum or plasma anion gap determination (moles/volume) 9 mmol/L 5-14 Serum or plasma urea nitrogen measurement (mass/volume) 12 mg/dL 7-18 Serum or plasma creatinine measurement (mass/volume) 0.59 mg/dL 0.60-1.30 Serum or plasma urea nitrogen/creatinine mass ratio 20 NRG Serum or plasma creatinine measurement with calculation of estimated glomerular filtration rate > NRG Serum or plasma glucose measurement (mass/volume) 115 mg/dL 70-105 Serum or plasma calcium measurement (mass/volume) 7.5 mg/dL 8.5-10.1 Serum or plasma total bilirubin measurement (mass/volume) 1.1 mg/dL 0.1-1.0 Serum or plasma alkaline phosphatase measurement (enzymatic activity/volume) 68 U/L 40-136 Serum or plasma aspartate aminotransferase measurement (enzymatic activity/ volume) 15 U/L 5-34 Serum or plasma alanine aminotransferase measurement (enzymatic activity/volume ) 14 U/L 0-55 Serum or plasma protein measurement (mass/volume) 5.4 g/dL 6.4-8.2 Serum or plasma albumin measurement (mass/volume) 2.5 g/dL 3.2-4.5 Capillary blood glucose measurement by glucometer (mass/volume) - 09/24/16 05: 56 Capillary blood glucose measurement by glucometer (mass/volume) 97 mg/dL 70-110 Comprehensive metabolic panel - 09/25/16 06:25 Serum or plasma sodium measurement (moles/volume) 131 mmol/L 135-145 Serum or plasma potassium measurement (moles/volume) 4.0 mmol/L 3.6-5.0 Serum or plasma chloride measurement (moles/volume) 99 mmol/L 98-107 Carbon dioxide 21 mmol/L 21-32 Serum or plasma anion gap determination (moles/volume) 11 mmol/L 5-14 Serum or plasma urea nitrogen measurement (mass/volume) 11 mg/dL 7-18 Serum or plasma creatinine measurement (mass/volume) 0.52 mg/dL 0.60-1.30 Serum or plasma urea nitrogen/creatinine mass ratio 21 NRG Serum or plasma creatinine measurement with calculation of estimated glomerular filtration rate > NRG Serum or plasma glucose measurement (mass/volume) 83 mg/dL 70-105 Serum or plasma calcium measurement (mass/volume) 7.4 mg/dL 8.5-10.1 Serum or plasma total bilirubin measurement (mass/volume) 0.9 mg/dL 0.1-1.0 Serum or plasma alkaline phosphatase measurement (enzymatic activity/volume) 69 U/L 40-136 Serum or plasma aspartate aminotransferase measurement (enzymatic activity/ volume) 19 U/L 5-34 Serum or plasma alanine aminotransferase measurement (enzymatic activity/volume ) 17 U/L 0-55 Serum or plasma protein measurement (mass/volume) 5.3 g/dL 6.4-8.2 Serum or plasma albumin measurement (mass/volume) 2.5 g/dL 3.2-4.5 Complete blood count (CBC) with automated white blood cell (WBC) differential - 03/16/17 13:15 Blood leukocytes automated count (number/volume) 5.8 10*3/uL 4.3-11.0 Blood erythrocytes automated count (number/volume) 2.68 10*6/uL 4.35-5.85 Venous blood hemoglobin measurement (mass/volume) 8.4 g/dL 11.5-16.0 Blood hematocrit (volume fraction) 26 % 35-52 Automated erythrocyte mean corpuscular volume 97 [foz_us] 80-99 Automated erythrocyte mean corpuscular hemoglobin (mass per erythrocyte) 31 pg 25-34 Automated erythrocyte mean corpuscular hemoglobin concentration measurement ( mass/volume) 32 g/dL 32-36 Automated erythrocyte distribution width ratio 13.8 % 10.0-14.5 Automated blood platelet count (count/volume) 337 10*3/uL 130-400 Automated blood platelet mean volume measurement 8.7 [foz_us] 7.4-10.4 Automated blood neutrophils/100 leukocytes 89 % 42-75 Automated blood lymphocytes/100 leukocytes 8 % 12-44 Blood monocytes/100 leukocytes 3 % 0-12 Automated blood eosinophils/100 leukocytes 0 % 0-10 Automated blood basophils/100 leukocytes 0 % 0-10 Blood neutrophils automated count (number/volume) 5.1 10*3 1.8-7.8 Blood lymphocytes automated count (number/volume) 0.5 10*3 1.0-4.0 Blood monocytes automated count (number/volume) 0.2 10*3 0.0-1.0 Automated eosinophil count 0.0 10*3/uL 0.0-0.3 Automated blood basophil count (count/volume) 0.0 10*3/uL 0.0-0.1 Whole blood hemoglobin and hematocrit panel - 03/16/17 13:15 Venous blood hemoglobin measurement (mass/volume) 8.4 g/dL 11.5-16.0 Blood hematocrit (volume fraction) 26 % 35-52 Blood manual differential performed detection - 03/16/17 13:15 Blood monocytes/100 leukocytes 4 % NRG Manual blood segmented neutrophils/100 leukocytes 91 % NRG Blood band neutrophils/100 leukocytes 0 % NRG Manual blood lymphocytes/100 leukocytes 5 % NRG Manual eosinophils/100 leukocytes in nose 0 % NRG Manual blood basophils/100 leukocytes 0 % NRG Blood erythrocyte morphology finding identification NORMAL NRG Erythrocyte sedimentation rate by westergren method - 03/16/17 13:15 Erythrocyte sedimentation rate by westergren method 19 mm 0-30 Whole blood basic metabolic panel - 03/16/17 13:15 Serum or plasma sodium measurement (moles/volume) 133 mmol/L 135-145 Serum or plasma potassium measurement (moles/volume) 3.9 mmol/L 3.6-5.0 Serum or plasma chloride measurement (moles/volume) 98 mmol/L 98-107 Carbon dioxide 24 mmol/L 21-32 Serum or plasma anion gap determination (moles/volume) 11 mmol/L 5-14 Serum or plasma urea nitrogen measurement (mass/volume) 16 mg/dL 7-18 Serum or plasma creatinine measurement (mass/volume) 0.71 mg/dL 0.60-1.30 Serum or plasma urea nitrogen/creatinine mass ratio 23 NRG Serum or plasma creatinine measurement with calculation of estimated glomerular filtration rate > NRG Serum or plasma glucose measurement (mass/volume) 181 mg/dL 70-105 Serum or plasma calcium measurement (mass/volume) 7.4 mg/dL 8.5-10.1 Serum or plasma C reactive protein measurement (mass/volume) - 03/16/17 13:15 Serum or plasma C reactive protein measurement (mass/volume) 0.05 mg /dL 0.00-0.50 [id number] - 03/16/17 13:[id number] [facility] Serum iron and total iron binding capacity panel - 03/16/17 13:15 Serum or plasma iron measurement (mass/volume) 38 % 35- 180 Total iron binding capacity and transferrin saturation measurement 13 % 15-50 Iron binding capacity [mass/volume] in serum or plasma 284 % 280-380 UIBC (unsaturated iron binding capacity) 246 % 55-450 Serum or plasma ferritin measurement (mass/volume) 136.0 % 15.0-150.0 RED CELLS LEUKO REDUCED AS1 - 03/19/17 09:42 RED CELLS LEUKO REDUCED AS1 TRANSFUSED 03/19/[address] [facility] Blood type T Indirect antibody screen panel - 03/19/17 09:42 ABO+Rh group BP [facility] Transfusion band number [id number] [facility] Blood group antibody screen NEGATIVE [facility] Whole blood hemoglobin and hematocrit panel - 03/19/17 13:29 Venous blood hemoglobin measurement (mass/volume) 10.8 g/dL 11.5-16.0 Blood hematocrit (volume fraction) 34 % 35-52 Whole blood hemoglobin and hematocrit panel - 03/19/17 15:49 Venous blood hemoglobin measurement (mass/volume) 10.2 g/dL 11.5-16.0 Blood hematocrit (volume fraction) 31 % 35-52 Complete blood count (CBC) with automated white blood cell (WBC) differential - 04/07/17 13:32 Blood leukocytes automated count (number/volume) 6.6 10*3/uL 4.3-11.0 Blood erythrocytes automated count (number/volume) 2.81 10*6/uL 4.35-5.85 Venous blood hemoglobin measurement (mass/volume) 8.9 g/dL 11.5-16.0 Blood hematocrit (volume fraction) 28 % 35-52 Automated erythrocyte mean corpuscular volume 98 [foz_us] 80-99 Automated erythrocyte mean corpuscular hemoglobin (mass per erythrocyte) 32 pg 25-34 Automated erythrocyte mean corpuscular hemoglobin concentration measurement ( mass/volume) 32 g/dL 32-36 Automated erythrocyte distribution width ratio 18.7 % 10.0-14.5 Automated blood platelet count (count/volume) 267 10*3/uL 130-400 Automated blood platelet mean volume measurement 8.4 [foz_us] 7.4-10.4 Automated blood neutrophils/100 leukocytes 78 % 42-75 Automated blood lymphocytes/100 leukocytes 13 % 12-44 Blood monocytes/100 leukocytes 9 % 0-12 Automated blood eosinophils/100 leukocytes 0 % 0-10 Automated blood basophils/100 leukocytes 0 % 0-10 Blood neutrophils automated count (number/volume) 5.1 10*3 1.8-7.8 Blood lymphocytes automated count (number/volume) 0.8 10*3 1.0-4.0 Blood monocytes automated count (number/volume) 0.6 10*3 0.0-1.0 Automated eosinophil count 0.0 10*3/uL 0.0-0.3 Automated blood basophil count (count/volume) 0.0 10*3/uL 0.0-0.1 Serum iron and total iron binding capacity panel - 04/07/17 13:32 Serum or plasma iron measurement (mass/volume) 70 % 35- 180 Total iron binding capacity and transferrin saturation measurement 29 % 15-50 Iron binding capacity [mass/volume] in serum or plasma 240 % 280-380 UIBC (unsaturated iron binding capacity) 170 % 55-450 Serum or plasma ferritin measurement (mass/volume) 938.0 % 15.0-150.0 RED CELLS LEUKO REDUCED AS1 - 04/13/17 09:59 RED CELLS LEUKO REDUCED AS1 TRANSFUSED 04/13/[address] [facility] Blood type T Indirect antibody screen panel - 04/13/17 09:59 ABO+Rh group BP NRG Transfusion band number [id number] [facility] Blood group antibody screen NEGATIVE [facility] Whole blood hemoglobin and hematocrit panel - 04/13/17 13:17 Venous blood hemoglobin measurement (mass/volume) 11.8 g/dL 11.5-16.0 Blood hematocrit (volume fraction) 36 % 35-52 Whole blood hemoglobin and hematocrit panel - 04/13/17 16:05 Venous blood hemoglobin measurement (mass/volume) 11.8 g/dL 11.5-16.0 Blood hematocrit (volume fraction) 36 % 35-52 Automated blood complete blood count (hemogram) panel - 04/21/17 13:57 Blood leukocytes automated count (number/volume) 7.6 10*3/uL 4.3-11.0 Blood erythrocytes automated count (number/volume) 3.90 10*6/uL 4.35-5.85 Venous blood hemoglobin measurement (mass/volume) 12.5 g/dL 11.5-16.0 Blood hematocrit (volume fraction) 38 % 35-52 Automated erythrocyte mean corpuscular volume 97 [foz_us] 80-99 Automated erythrocyte mean corpuscular hemoglobin (mass per erythrocyte) 32 pg 25-34 Automated erythrocyte mean corpuscular hemoglobin concentration measurement ( mass/volume) 33 g/dL 32-36 Automated erythrocyte distribution width ratio 18.1 % 10.0-14.5 Automated blood platelet count (count/volume) 193 10*3/uL 130-400 Automated blood platelet mean volume measurement 9.3 [foz_us] 7.4-10.4 Complete blood count (CBC) with automated white blood cell (WBC) differential - 06/06/17 10:05 Blood leukocytes automated count (number/volume) 9.0 10*3/uL 4.3-11.0 Blood erythrocytes automated count (number/volume) 4.09 10*6/uL 4.35-5.85 Venous blood hemoglobin measurement (mass/volume) 13.7 g/dL 11.5-16.0 Blood hematocrit (volume fraction) 40 % 35-52 Automated erythrocyte mean corpuscular volume 98 [foz_us] 80-99 Automated erythrocyte mean corpuscular hemoglobin (mass per erythrocyte) 34 pg 25-34 Automated erythrocyte mean corpuscular hemoglobin concentration measurement ( mass/volume) 34 g/dL 32-36 Automated erythrocyte distribution width ratio 14.6 % 10.0-14.5 Automated blood platelet count (count/volume) 348 10*3/uL 130-400 Automated blood platelet mean volume measurement 8.7 [foz_us] 7.4-10.4 Automated blood neutrophils/100 leukocytes 71 % 42-75 Automated blood lymphocytes/100 leukocytes 21 % 12-44 Blood monocytes/100 leukocytes 7 % 0-12 Automated blood eosinophils/100 leukocytes 0 % 0-10 Automated blood basophils/100 leukocytes 1 % 0-10 Blood neutrophils automated count (number/volume) 6.4 10*3 1.8-7.8 Blood lymphocytes automated count (number/volume) 1.9 10*3 1.0-4.0 Blood monocytes automated count (number/volume) 0.7 10*3 0.0-1.0 Automated eosinophil count 0.0 10*3/uL 0.0-0.3 Automated blood basophil count (count/volume) 0.1 10*3/uL 0.0-0.1 Magnesium - 06/06/17 10:05 Magnesium 1.5 mg/dL 1.8-2.4 PT panel in platelet poor plasma by coagulation assay - 06/06/17 10:05 Prothrombin time (PT) in platelet poor plasma by coagulation assay 11.6 s 12.2-14.7 INR in platelet poor plasma or blood by coagulation assay 0.8 0.8-1.4 Activated partial thromboplastin time (aPTT) in platelet poor plasma bycoagulation assay - 06/06/17 10:05 Activated partial thromboplastin time (aPTT) in platelet poor plasma bycoagulation assay 28 s 24-35 Comprehensive metabolic panel - 06/06/17 10:05 Serum or plasma sodium measurement (moles/volume) 128 mmol/L 135-145 Serum or plasma potassium measurement (moles/volume) 4.5 mmol/L 3.6-5.0 Serum or plasma chloride measurement (moles/volume) 90 mmol/L 98-107 Carbon dioxide 25 mmol/L 21-32 Serum or plasma anion gap determination (moles/volume) 13 mmol/L 5-14 Serum or plasma urea nitrogen measurement (mass/volume) 10 mg/dL 7-18 Serum or plasma creatinine measurement (mass/volume) 0.67 mg/dL 0.60-1.30 Serum or plasma urea nitrogen/creatinine mass ratio 15 NRG Serum or plasma creatinine measurement with calculation of estimated glomerular filtration rate > NRG Serum or plasma glucose measurement (mass/volume) 124 mg/dL 70-105 Serum or plasma calcium measurement (mass/volume) 8.7 mg/dL 8.5-10.1 Serum or plasma total bilirubin measurement (mass/volume) 0.6 mg/dL 0.1-1.0 Serum or plasma alkaline phosphatase measurement (enzymatic activity/volume) 93 U/L 40-136 Serum or plasma aspartate aminotransferase measurement (enzymatic activity/ volume) 28 U/L 5-34 Serum or plasma alanine aminotransferase measurement (enzymatic activity/volume ) 18 U/L 0-55 Serum or plasma protein measurement (mass/volume) 6.2 g/dL 6.4-8.2 Serum or plasma albumin measurement (mass/volume) 3.0 g/dL 3.2-4.5 Myoglobin, serum - 06/06/17 10:05 Myoglobin, serum 76.1 ng/mL 10.0-92.0 Serum or plasma troponin i.cardiac measurement (mass/volume) - 06/06/17 10:05 Serum or plasma troponin i.cardiac measurement (mass/volume) < ng/ mL <0.30 Myoglobin, serum - 06/06/17 10:05 Myoglobin, serum 76.1 ng/mL 10.0-92.0 Serum or plasma thyrotropin measurement by detection limit <=0.05 miu/l (units/ volume) - 06/06/17 10:05 Serum or plasma thyrotropin measurement by detection limit <=0.05 miu/l (units/ volume) 2.91 u[iU]/mL 0.35-4.94 Encounters ACCT No. Visit Date/Time Discharge Status Pt. Type Provider Facility Loc./Unit Complaint [id number] 08/17/2013 11:00:19 08/17/2013 23:59:59 [place] [facility] [place] [id number] 01/07/2017 23:21:29 01/07/2017 23:59:59 CLS Outpatient [id number] 04/21/2017 13:47:00 04/21/2017 23:59:59 CLS Outpatient GALLO HUMMEL MD [facility] LAB D64.9 [id number] 04/13/2017 09:23:00 04/13/2017 23:59:59 CLS Outpatient GALLO UHMMEL MD [facility] D64.9,R53.83 [id number] 04/07/2017 13:18:00 04/07/2017 23:59:59 CLS Outpatient GALLO HUMMEL MD [facility] LAB D64.9 [id number] 04/03/2017 14:13:00 04/03/2017 23:59:59 CLS Outpatient WOODY CARBONE MD [facility] IRON DEFICIENCY ANEMIA [id number] 03/19/2017 08:53:00 03/19/2017 23:59:59 CLS Outpatient GALLO HUMMEL MD [facility] D64.9,R53.83 [id number] 03/16/2017 12:56:00 03/16/2017 23:59:59 CLS Outpatient GALLO HUMMEL MD [facility] LAB Z79.899 [id number] 03/16/2017 12:50:00 03/16/2017 23:59:59 CLS Outpatient WOODY CARBONE MD [facility] ANEMIA [id number] 02/16/2017 12:59:00 02/16/2017 23:59:59 CLS Outpatient ARTHUR FLORES [facility] OSTEOPOROSIS [id number] 11/26/2016 00:23:00 11/26/2016 23:59:59 CLS Preadmit WOODY CARBONE MD [facility] ANEMIA [id number] 09/05/2016 12:39:00 11/25/2016 00:01:00 DIS Outpatient WOODY CARBONE MD [facility] ANEMIA [id number] 09/19/2016 10:01:00 09/30/2016 10:45:00 DIS Inpatient BERE BEAN MD [facility] IRF OSTEOARTHRITIS [id number] 09/15/2016 15:42:00 09/19/2016 10:00:00 DIS Inpatient WOODY CARBONE MD [facility] 4TH INTRACTABLE R LEG PAIN; HYPONATREMIA; ANEMIA [id number] 08/18/2016 13:02:00 08/18/2016 23:59:59 CLS Outpatient WOODY CARBONE MD [facility] AGE RELATED OSTEOPOROSIS [id number] 07/28/2016 08:19:00 07/28/2016 13:27:00 DIS Emergency KIKO FLORES MD [facility] ER WEAKNESS, DIZZINESS, BODY ACHES [id number] 07/07/2016 09:55:00 07/07/2016 23:59:59 CLS Outpatient MARGE COX APRN [facility] RAD SWELLING, HX OF BLOOD CLOT [id number] 07/04/2016 12:03:00 07/04/2016 23:59:59 CLS Outpatient MARGE COX APRN [facility] RAD LT SHOULDER PAIN [id number] 02/18/2016 12:54:00 02/18/2016 23:59:59 CLS Outpatient WOODY CARBONE MD [facility] AGE RELATED OSTEOPOROSIS [id number] 12/20/2015 14:17:00 12/20/2015 23:59:59 CLS Outpatient MARGE COX APRN [facility] RAD SCREENING [id number] 12/06/2015 00:05:00 12/11/2015 11:00:00 DIS Inpatient ABIGAIL TORREZ MD [facility] 4TH SMALL BOWEL OBSTRUCTION [id number] 08/06/2015 00:08:00 08/06/2015 23:59:59 CLS Preadmit WOODY CARBONE MD [facility] IRON DEFICIENCY,ANEMIA [id number] 05/18/2015 12:47:00 08/05/2015 00:01:00 DIS Outpatient WOODY CARBONE MD [facility] IRON DEFICIENCY, ANEMIA [id number] 07/16/2015 12:48:00 07/16/2015 23:59:59 CLS Outpatient WOODY CARBONE MD [facility] AGE RELATED OSTEOPOROSIS [id number] 07/26/2014 13:09:00 10/12/2014 00:01:00 DIS Outpatient WOODY CARBONE MD [facility] LOW HGB [id number] 09/05/2014 13:41:00 09/05/2014 23:59:59 CLS Outpatient WOODY CARBONE MD [facility] RAD RT SWELLING, HX OF DVT [id number] 02/17/2014 15:48:00 02/17/2014 23:59:59 CLS Outpatient PEE LAST MD [facility] RAD SPINAL STENOSIS [id number] 01/18/2014 15:29:00 01/18/2014 23:59:59 CLS Outpatient PEE LAST MD [facility] RAD FALL C/O PAIN [id number] 12/12/2013 13:43:00 12/12/2013 23:59:59 CLS Outpatient PEE LAST MD [facility] RAD FALL HX OF BACK SURGERY [id number] 10/03/2013 14:07:00 10/03/2013 23:59:59 CLS Outpatient PEE LAST MD [facility] RAD FOLLOW UP [id number] 03/29/2013 12:55:00 03/29/2013 23:59:59 CLS Outpatient PEE LAST MD [facility] RAD 6 MONTH FOLLOW UP [id number] 10/22/2012 07:28:00 10/22/2012 11:00:00 DIS Outpatient NELIA LOVELACE MD [facility] SDC PARTIAL INTERSTITIAL OBSTRUCTION [id number] 10/21/2012 07:14:00 10/21/2012 23:59:59 CLS Outpatient NELIA LOVELACE MD [facility] PREOP PARTIAL INTERSTITIAL OBSTRUCTION [id number] 09/22/2012 14:06:00 09/22/2012 23:59:59 CLS Outpatient PEE LAST MD [facility] RAD ABN MAMMOGRAM [id number] 09/06/2012 14:17:00 09/06/2012 23:59:59 CLS Outpatient PEE LAST MD [facility] RAD SCREENING [id number] 08/10/2012 22:25:00 08/13/2012 10:00:00 DIS Inpatient PEE LAST MD [facility] 4TH SMAL BOWEL OBSTRUCTION,UTI [id number] 06/06/2017 11:43:00 ACT Inpatient PRABHA HAQEDISON [facility] ICU NEW ONSET AFIB W/ RVR [id number] 06/04/2017 09:41:00 PEN Preadmit MARGE COX APRN [facility] REHAB B UE AND LE EDEMA [id number] 04/09/2012 07:54:00 Document Registration [id number] 04/06/2012 16:11:00 Document Registration [id number] 03/29/2012 13:50:00 Document Registration [email or web address] 09/05/2014 13:47:20 ACT Document Registration
[2017-06-06] MEDS: NS IV 1000 ML 1,000 ML IV SCH (14:01)
[2017-06-06] MEDS: MAGNESIUM 1 GM/100 ML IVPB 100 ML IV SCH ×2 (14:01→16:24)
[2017-06-06] MEDS: SUCRALFATE 1 GM (CARAFATE) TAB PO SCH ×3 (16:24→21:33)
[2017-06-06] MEDS ORDERED: FENT1PAT8 TD (17:06)
[2017-06-06] MEDS ORDERED: METO5TAB6 PO (17:06)
[2017-06-06] MEDS ORDERED: NAPR-915 PO (17:06)
[2017-06-06] MEDS ORDERED: FENT1PAT11 TD (17:06)
[2017-06-06] MEDS ORDERED: PANT40TA3 PO (17:06)
[2017-06-06] MEDS ORDERED: SUCR1TAB PO (17:06)
[2017-06-06] MEDS ORDERED: INFL100V IV (17:15)
[2017-06-06] MEDS ORDERED: OXYC30TA80 PO (17:15)
[2017-06-06] MEDS: DILTIAZEM 30 MG (CARDIZEM) TAB PO SCH (17:39)
[2017-06-06] MEDS ORDERED: FUROSEMIDE 20 MG (LASIX) TAB PO PRN (17:45)
[2017-06-06] MEDS ORDERED: CALCIUM CARBONATE 500 MG (TUMS) TAB.CHEW PO PRN (17:45)
[2017-06-06] MEDS ORDERED: ONDANSETRON 4 MG/2 ML (SDV) Z0FRAN IVP PRN (17:45)
[2017-06-06] MEDS ORDERED: ALPRAZolam 0.25 MG (XANAX) TAB PO PRN (17:45)
[2017-06-06] MEDS ORDERED: METOLAZONE 5 MG (ZAROXOLYN) TAB PO PRN (17:45)
[2017-06-06] MEDS ORDERED: ACETAMINOPHEN 500 MG TAB (TYLENOL) PO PRN (17:45)
[2017-06-06] MEDS ORDERED: fentaNYL PATCH 25 MCG (DURAGESIC) TD SCH (17:45)
[2017-06-06] MEDS ORDERED: DOCUSATE SODIUM 100 MG (COLACE) CAP PO PRN (17:45)
[2017-06-06] MEDS ORDERED: CYANOCOBALAMIN INJ 1000 MCG/ML IJ SCH (17:45)
[2017-06-06] MEDS ORDERED: fentaNYL PATCH 100 MCG (DURAGESIC) TD SCH (17:45)
[2017-06-06] MEDS: CALCIUM CARB + VIT D 600 MG (CALCARB + D) TAB PO SCH (21:33)
[2017-06-06] MEDS: POLYETHYLENE GLYCOL 17 GM (MIRALAX) PACK PO SCH (21:33)
[2017-06-06] MEDS: VITAMIN D3 1,000 UNITS (CHOLECALCIFEROL) TABLET PO SCH (21:33)
[2017-06-07] VITALS: BP 150/74
[2017-06-07] MEDS: DILTIAZEM 30 MG (CARDIZEM) TAB PO SCH ×2 (00:13→06:13)
[2017-06-07] MEDS: NS IV 1000 ML 1,000 ML IV SCH ×3 (00:13→17:03)
[2017-06-07] MEDS: ENOXAPARIN 80 MG/0.8 ML (LOVENOX) SYR SC SCH (00:13)
[2017-06-07 04:00] VITALS: BP 109/75
[2017-06-07 04:15] LABS: HEMOGLOBIN 10.6 G/DL (11.5-16.0); MEAN PLATELET VOLUME 8.8 FL (7.4-10.4); RED BLOOD COUNT 3.2 10^6/uL (4.35-5.85); RED CELL DISTRIBUTION WIDTH 14.2 % (10.0-14.5); WHITE BLOOD COUNT 6.1 10^3/uL (4.3-11.0)
[2017-06-07] MEDS: fentaNYL INJECTION 100 MCG/2 ML AMP IVP PRN ×2 (04:33→05:34)
[2017-06-07 04:47] LABS: ALANINE AMINOTRANSFERASE 11 U/L (0-55); ALBUMIN 2.3 GM/DL (3.2-4.5); ALKALINE PHOSPHATASE 63 U/L (40-136); BILIRUBIN,TOTAL 0.3 MG/DL (0.1-1.0); BUN/CREATININE RATIO 15; CALCIUM 7.9 MG/DL (8.5-10.1); CARBON DIOXIDE 27 MMOL/L (21-32); CHLORIDE 94 MMOL/L (98-107); CHOLESTEROL 161 MG/DL (< 200); GFR ESTIMATED > 60; GLUCOSE 117 MG/DL (70-105); HDL CHOLESTEROL 81 MG/DL (40-60); MAGNESIUM 1.4 MG/DL (1.8-2.4); POTASSIUM 3.3 MMOL/L (3.6-5.0); SODIUM 128 MMOL/L (135-145); TOTAL PROTEIN 4.5 GM/DL (6.4-8.2); TRIGLYCERIDES 87 MG/DL (<150); VLDL CHOLESTEROL 17 MG/DL (5-40)
[2017-06-07] MEDS ORDERED: HYDROmorphone (DILAUDID) 2 MG/ML VIAL IVP PRN (05:15)
[2017-06-07] MEDS: HYDROmorphone (DILAUDID) 2 MG/ML VIAL IVP PRN ×2 (06:00→12:02)
[2017-06-07] MEDS: SUCRALFATE 1 GM (CARAFATE) TAB PO SCH ×7 (06:12→22:22)
[2017-06-07] MEDS: PANTOPRAZOLE 40 MG (PROTONIX) TAB PO SCH (06:13)
[2017-06-07] MEDS: predniSONE 5 MG TAB PO SCH (06:13)
[2017-06-07] MEDS ORDERED: LIDOCAINE 1% INJ 20 ML 20 ML VIAL ONE (06:42)
[2017-06-07] MEDS ORDERED: LIDOCAINE 2% 20 ML (XYLOCAINE) VIAL INJ ONE (07:15)
--- NOTE | 2017-06-07 07:59 | Consultation ---
History of Present Illness History of Present Illness Patient Consulted On(nisha/time) 06/07/17 07:52 Date Seen by Provider: Jun 07, 2017 Time Seen by Provider: 07:52 Reason for Visit: shoulder pain History of Present Illness 81 y/o white female, with acute onset of severe right shoulder pain after starting Lovenox. Has had history of joint bleeds in the past, and this is similar, but more severe. Denies any other complaints. Allergies and Home Medications Allergies Coded Allergies: Penicillins (Verified Allergy, Unknown, 08/11/12) Sulfa (Sulfonamide Antibiotics) (Verified Allergy, Unknown, 09/17/16) Home Medications Calcium/Vitamin D 600 Mg Tab, 600 MG PO BID, (Reported) Cholecalciferol 1,000 Unit Tab, 1,000 UNIT PO BID, (Reported) Cyanocobalamin 1,000 Mcg/Ml Vial, 1,000 MCG IJ ONCE MONTHLY, (Reported) Denosumab 60 Mg/1 Ml Disp.syrin, SQ EVERY 6 MONTHS, (Reported) NEXT INJECTION DUE IN JULY Docusate Sodium 100 Mg Capsule, 100 MG PO DAILY, (Reported) Fentanyl 1 Each Patch.td72, 25 MCG TD Q72H, (Reported) Change on Thursday06/08/17 Fentanyl 1 Each Patch.td72, 100 MCG TD Q72H, (Reported) Change Thursday06/07/17 Furosemide 20 Mg Tablet, 20 MG PO DAILY PRN for SWELLING, (Reported) Infliximab 100 Mg Soln, 100 MG IV A5IUHPO, (Reported) JUNE 2017 Metolazone 5 Mg Tablet, 5 MG PO DAILY PRN PRN for Edema, (Reported) Oxycodone HCl 30 Mg Tablet, 15 MG PO QID, (Reported) Takes half a tab Four times a day Pantoprazole Sodium 40 Mg Tablet.dr, 40 MG PO DAILY, (Reported) Polyethylene Glycol 3350 17 Gm Powd.pack, 17 GM PO HS, (Reported) MIXES WITH GRAPE JUICE Potassium Chloride 10 Meq Capsule.er, 10 MEQ PO DAILY PRN for WHEN TAKING FUROSEMIDE, (Reported) Prednisone Unknown Strength Tab, 5 MG PO DAILY, (Reported) Sucralfate 1 Gm Tablet, 1 GM PO BID, (Reported) Patient Home Medication List Home Medication List Reviewed: Yes Past Cunzcgo-Ihqrqe-Nrqkky Hx Past Med/Social Hx: Reviewed Nursing Past Med/Soc Hx, Reviewed and Corrections made Patient Social History Alcohol Use: Occasionally Uses Number of Drinks Today: 0 Alcohol Beverage of Choice: Wine, Vodka Recreational Drug Use: No Smoking Status: Former Smoker Type Used: Cigarettes Former Smoker, Quit: Dec 05, 1961 2nd Hand Smoke Exposure: No Recent Foreign Travel: No Contact w/Someone Who Travel: No Recent Infectious Disease Expo: No Recent Hopitalizations: No Immunizations Up To Date Tetanus Booster (TDap): Unknown PED Vaccines UTD: Yes Date of Pneumonia Vaccine: Mar 02, 2014 Date of Influenza Vaccine: Nov 28, 2016 Seasonal Allergies Seasonal Allergies: No Past Medical History Surgeries: Yes (6 back and 3 total knees, 4 alt. 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 HIV/AIDS: No Genitourinary: No Bladder Infection Gastrointestinal: Yes (Bleeding ulcer August 2016) Gastroesophageal Reflux, Gastrointestinal Bleed, Obstructive Bowel, Ulcer, Irritable Bowel Musculoskeletal: Yes (multiple back and knee surgeries, osteoarthritis, SCIATICA) Degenerate Disk Disease, Arthritis, Fibromyalgia, Rheumatoid Arthritis, Chronic Back Pain, Fractures Endocrine: No HEENT: No Cataract Loss of Vision: Denies Hearing Impairment: Hard of Hearing Cancer: No Psychosocial: No Integumentary: No Blood Disorders: Yes (hx of anemia) Adverse Reaction/Blood Tranf: No Family Medical History Reviewed and Corrections made Heart Disease, Hypertension Review of Systems-General Constitutional: no symptoms reported EENTM: no symptoms reported Respiratory: no symptoms reported Cardiovascular: palpitations Gastrointestinal: no symptoms reported Musculoskeletal: joint pain Skin: other (brusing) Psychiatric/Neurological: Paresthesia Physical Exam-General Problems Physical Exam Vital Signs Vital Signs - First Documented 06/06/17 09:46 Temp 98.1 Pulse 148 Resp 13 B/P (MAP) 111/90 (97) Pulse Ox 98 O2 Delivery Room Air Capillary Refill : Less Than 3 Seconds General Appearance: severe distress Eyes: Bilateral Eye Normal Inspection HEENT: PERRL/EOMI Neck: non-tender, full range of motion, supple, normal inspection Respiratory: no respiratory distress, no accessory muscle use Cardiovascular: irregularly irregular Peripheral Pulses: 2+ Femoral (R), 2+ Femoral (L), 2+ Radial Pulses (R), 2+ Radial Pulses (L) Gastrointestinal: normal bowel sounds, soft Back: normal inspection Extremities: swelling, other (marked swelling of right shoulder and pain with any motion. Distally N/V/I) Neurologic/Psychiatric: no motor/sensory deficits, alert, normal mood/affect Skin: other (Brusing across right shoulder/chest) Lymphatic: no adenopathy Assessment/Plan Assessment/Plan Admission Diagnosis/Plan Atrial Fibrillation Acute right shoulder hemarthrosis secondary to Lovenox Rheumatoid Arthritis Plan : Aspiration of right shoulder Procedure: Right shoulder, prepped and draped. Lidocaine injected into skin and 14 gauge angiocath inserted anteriorly into the right shoulder joint. 120cc+ of bloody fluid removed from joint with immediate relief obtained in pain. Pressure dressing applied. Clinical Quality Measures DVT/VTE Risk/Contraindication: Risk Factor Score Per Nursin RFS Level Per Nursing on Admit: 4+=Very High JEIMY WANG MD Jun 07, 2017 7:58 am
[2017-06-07 08:00] VITALS: BP 130/90
[2017-06-07] MEDS ORDERED: VERAPAMIL 10 MG/4 ML (CALAN) VIAL IV NR (08:30)
--- NOTE | 2017-06-07 08:32 | Cardiology Progress Note ---
Subjective Date Seen by Provider: Jun 07, 2017 Time Seen by Provider: 08:29 Subjective/Events-last exam Patient had a tough night, started having severe pain in her right shoulder, underwent aspiration which was bloody. Lovenox was discontinued. Feeling better at this time. Review of Systems General: No Chills, No Night Sweats, No Fatigue, No Malaise, No Appetite, No Other HEENT: No Head Aches, No Visual Changes, No Eye Pain, No Ear Pain, No Dysphasia , No Sinus Congestion, No Post Nasal Drip, No Sore Throat, No Other Pulmonary: Dyspnea, No Cough, No Pleuritic Chest Pain, No Other Cardiovascular: Palpitations, No: Chest Pain, Orthopnea, Paroxysmal Noc. Dyspnea, Edema, Lt Headedness, Other Objective-Cardiology Exam Last Set of Vital Signs Vital Signs Capillary Refill : Less Than 3 Seconds I&O Intake and Output 06/07/17 00:00 Intake Total 1900 ml Output Total 801 ml Balance 1099 ml Intake Oral 700 ml IV Total 1200 ml Output Urine Total 800 ml Stool Total 1 ml # Bowel Movements 1 Daily Weight Change No General: Alert, Oriented X3, Cooperative HEENT: Atraumatic, PERRLA Neck: Supple, No JVD, No Thyromegaly Lungs: Clear to Auscultation, Normal Air Movement Heart: Normal S1, Normal S2, No Murmurs, Other (Atrial fibrillation with rapid ventricular response) Abdomen: Normal Bowel Sounds, Soft, No Tenderness, No Hepatosplenomegaly, No Masses Extremities: No Clubbing, No Cyanosis, No Edema, Normal Pulses, No Tenderness/ Swelling Skin: No Rashes, No Breakdown, No Significant Lesion Neuro: Normal Speech, Strength at 5/5 X4 Ext, Normal Tone, Sensation Intact Psych/Mental Status: Mental Status NL, Mood NL Results Lab Laboratory Tests 06/06/17 10:05 06/07/17 03:35 A/P-Cardiology Admission Diagnosis Atrial fibrillation Tachycardia Hyponatremia Hypomagnesemia Assessment/Plan Atrial fibrillation with rapid ventricular response, poorly controlled, I will give additional verapamil dose and increase Cardizem to 60 mg every 6 hours and monitor her tolerance and response [id number] score of 3, yearly risk of stroke without oral anticoagulation is 3.2 percent. Significant bleeding with Lovenox, unable to tolerate anticoagulation, patient understand the risk of stroke. Generalized weakness and loss of energy, hypotension, blood pressure is better at this time. Continue to monitor Gastroesophageal reflux disease, history of peptic ulcer disease, maintained on PPI and Carafate. Continue to monitor Hyponatremia, probably secondary to diuretics, persistent, continue to monitor Anemia, significant drop in hemoglobin after Lovenox injection. Discontinue anticoagulation monitor H&H Hypomagnesemia, replace and monitor Arthritis, significant history of intra-articular bleeding, status post bleeding in the right shoulder, underwent aspiration. Feeling better. Chronic pain, receiving multiple pain medications History of DVT in the past, not on oral anticoagulation Clinical Quality Measures DVT/VTE Risk/Contraindication: Risk Factor Score Per Nursin RFS Level Per Nursing on Admit: 4+=Very High MARGAUX ROUSE MD Jun 07, 2017 08:32
[2017-06-07] MEDS ORDERED: FENTANYL 100 MCG PATCH REMOVAL TP SCH (08:59)
[2017-06-07] MEDS ORDERED: fentaNYL PATCH 100 MCG (DURAGESIC) TD SCH (09:00)
[2017-06-07] MEDS ORDERED: PREDNISONE 5 MG PO SCH (09:00)
[2017-06-07] MEDS ORDERED: fentaNYL INJECTION 100 MCG/2 ML AMP IVP PRN (09:30)
[2017-06-07] MEDS: CALCIUM CARB + VIT D 600 MG (CALCARB + D) TAB PO SCH ×2 (10:32→21:00)
[2017-06-07] MEDS: VITAMIN D3 1,000 UNITS (CHOLECALCIFEROL) TABLET PO SCH ×2 (10:32→21:00)
[2017-06-07] MEDS: DOCUSATE SODIUM 100 MG (COLACE) CAP PO SCH (10:38)
[2017-06-07] MEDS: DILTIAZEM 60 MG (CARDIZEM) TAB PO SCH ×2 (11:36→18:32)
[2017-06-07 12:00] VITALS: BP 14/96
[2017-06-07] MEDS ORDERED: HYDROmorphone PF INJECTION 20 MG in NS (IVPB) 100 ML IV PRN (12:15)
[2017-06-07] MEDS ORDERED: LORazepam INJ 2 MG/ML (ATIVAN) VIAL IVP PRN (12:15)
--- NOTE | 2017-06-07 12:40 | Progress Note-Hospitalist ---
Subjective HPI/CC On Admission Date Seen by Provider: Jun 07, 2017 Time Seen by Provider: 11:30 Chief complaint: Palpitations with new onset atrial fibrillation with rapid ventricular response History of present illness: This is an 81-year-old white female clinic patient of Dr. Silva with the past medical history of severe rheumatoid arthritis with frequent bleeding into her joints who also sees Dr. Harkins and Dr. Ambrocio in [place] for rheumatology needs who presents to the ER after not feeling well for the past 2 days. She reports that she was feeling under the weather yesterday did not really get out of bed that her daughter helped her manage everything at home where she lives in an apartment behind her daughter's house who then worsened to the point that she felt like she was going to faint today. She felt her heart beating fast and felt very lethargic and weak so she requested we brought to the ER and patient was found to have atrophic fibrillation with rapid ventricular response. She's not had any significant heart problems in the past and overall her main medical issues the rheumatoid arthritis and progressive debility. She reports that she overall is able to function fairly well but she does take 2 fentanyl patches on at the same time interchanges those every 3 days and takes scheduled oxycodone. Dr. Jenkins has been consulted and she will be placed on cardiac stepdown for rate control of the new onset A. fib. Subjective/Events-last exam Major events that began at 0500 today requiring a phone call at that time and again one hour later and then again 30 minutes later regarding right shoulder pain that my suspicion was hemarthrosis from the Lovenox anticoagulation because she has had hemarthrosis in the past and the RN concurred so we consulted orthopedic surgery Dr. Jean-Baptiste who graciously assessed the patient and removed a large amount of blood from the right shoulder joint with good relief once that was completed. Acute on chronic pain is a major issue for this patient of which she struggles with severe pain on an ongoing basis in the right shoulder pain is very disturbing to her since she did have some relief from that once it was removed but now she reports that it is coming back gradually. I counseled her and reassured her as much as possible regarding the pain medication of which that is all that she wants to talk about in once every detail regarding the pain medication she will receive for this right shoulder pain of which greatly disturbs her. After I see her she requested for me to see her again of which I had already rounded in the ICU and she was very concerned about the pain once again so I started a Dilaudid SALES REPRESENTATIVE DOOR TO DOOR in addition to her fentanyl patches maintained and the oxycodone 15 mg 4 times a day which we will need to monitor closely for respiratory depression considering how much narcotic she is requiring. Patient has significant tolerance considering how much narcotic she requires on a daily basis. Cardiology increased the arrhythmic to 60 mg considering her blood pressure was well maintained on the 30 MG which will help with rate control of the atrial fibrillation. Review of Systems Cardiovascular: Palpitations Musculoskeletal: shoulder pain (right) Objective Exam Vital Signs Vital Signs Date Time Temp Pulse Resp B/P (MAP) Pulse Ox O2 Delivery O2 Flow Rate FiO2 06/06/17 09:46 98.1 148 13 111/90 (97) 98 Room Air Capillary Refill : Less Than 3 Seconds General Appearance: No Apparent Distress, WD/WN, Chronically ill HEENT: PERRL/EOMI Neck: Full Range of Motion, Normal Inspection Respiratory: Lungs Clear, Normal Breath Sounds Cardiovascular: Irregularly Irregular, Tachycardia (108) Extremity: Normal Capillary Refill, Swelling, Other (limited ROM right arm) Neurologic/Psychiatric: Alert, Oriented x3, Depressed Affect Results/Procedures Lab Laboratory Tests 06/07/17 03:35 Patient resulted labs reviewed. Assessment/Plan Assessment and Plan Assess & Plan/Chief Complaint Assessment: Acute right shoulder hemarthrosis from complication of anticoagulation status post drainage by orthopedic surgery but continued pain requiring Dilaudid SALES REPRESENTATIVE DOOR TO DOOR in addition to her fentanyl patches and oxycodone scheduled 4 times daily New-onset atrial fibrillation with rapid ventricular response doing well on oral meds currently Severe rheumatoid arthritis w/severe debility Chronic pain requiring high-dose narcotics on an ongoing basis Narcotic bowel Plan: I appreciate cardiology consultation Rate control Stroke prophylaxis with anticoagulation of Lovenox is not an option since she had severe right shoulder bleeding last night and has had bleeding in the past into her other joints Replace potassium and magnesium per protocol Dilaudid SALES REPRESENTATIVE DOOR TO DOOR in addition to her chronic Fentanyl patches and Oxycodone 15mg PO QID at high risk for respiratory depression will monitor closely Diagnosis/Problems Diagnosis/Problems (1) Hemarthrosis involving glenohumeral joint Status: Acute (2) Atrial fibrillation, new onset Status: Acute (3) Atrial fibrillation with RVR Status: Acute (4) Hyponatremia Status: Chronic (5) Rheumatoid arthritis Status: Acute Qualifiers: Rheumatoid arthritis location: unspecified site Rheumatoid factor presence : unspecified presence Qualified Codes: M06.9 - Rheumatoid arthritis, unspecified (6) Anemia due to acute blood loss Status: Acute (7) Hypokalemia Status: Acute Clinical Quality Measures DVT/VTE Risk/Contraindication: Risk Factor Score Per Nursin RFS Level Per Nursing on Admit: 4+=Very High EDISON ARMANDO DO Jun 07, 2017 12:40
[2017-06-07] MEDS: methylPREDNISolone 40 MG/ML (Solu-MEDROL) VIAL IV SCH ×2 (13:17→18:32)
[2017-06-07] MEDS: POTASSIUM CL 10MEQ/50ML IVPB 50 ML IV SCH ×4 (14:55→17:20)
[2017-06-07] MEDS: MAGNESIUM 1 GM/100 ML IVPB 100 ML IV SCH ×2 (14:55→16:20)
[2017-06-07] MEDS ORDERED: CNC1KV IJ (15:41)
[2017-06-07] MEDS ORDERED: DOCU100C37 PO (15:41)
[2017-06-07] MEDS ORDERED: NAPR-915 PO (15:41)
[2017-06-07] MEDS ORDERED: CHOL10007 PO (15:41)
[2017-06-07] MEDS ORDERED: PRD10T PO (15:41)
[2017-06-07] MEDS ORDERED: CALC-694 PO (15:41)
[2017-06-07] MEDS ORDERED: NS IV 500 ML 500 ML ONE (15:51)
[2017-06-07 16:00] VITALS: BP 127/90
[2017-06-07 20:00] VITALS: BP 135/88
[2017-06-07] MEDS: POLYETHYLENE GLYCOL 17 GM (MIRALAX) PACK PO SCH (22:23)
[2017-06-08] VITALS: BP 135/89
[2017-06-08] MEDS: methylPREDNISolone 40 MG/ML (Solu-MEDROL) VIAL IV SCH ×4 (00:15→17:04)
[2017-06-08] MEDS: DILTIAZEM 60 MG (CARDIZEM) TAB PO SCH ×2 (00:15→05:26)
[2017-06-08 04:00] VITALS: BP 134/86
[2017-06-08 04:45] LABS: HEMOGLOBIN 10.3 G/DL (11.5-16.0); MEAN PLATELET VOLUME 9.4 FL (7.4-10.4); RED BLOOD COUNT 3.11 10^6/uL (4.35-5.85); RED CELL DISTRIBUTION WIDTH 13.6 % (10.0-14.5); WHITE BLOOD COUNT 5.9 10^3/uL (4.3-11.0)
[2017-06-08 05:08] LABS: BUN/CREATININE RATIO 18; CALCIUM 8.1 MG/DL (8.5-10.1); CARBON DIOXIDE 22 MMOL/L (21-32); CHLORIDE 92 MMOL/L (98-107); CREATININE SERUM 0.65 MG/DL (0.60-1.30); GFR ESTIMATED > 60; GLUCOSE 194 MG/DL (70-105); MAGNESIUM 1.7 MG/DL (1.8-2.4); POTASSIUM 4.2 MMOL/L (3.6-5.0)
[2017-06-08 05:13] LABS: SODIUM 124 MMOL/L (135-145)
[2017-06-08] MEDS: SUCRALFATE 1 GM (CARAFATE) TAB PO SCH ×4 (05:26→21:25)
[2017-06-08 08:00] VITALS: BP 132/89
[2017-06-08] MEDS: CALCIUM CARB + VIT D 600 MG (CALCARB + D) TAB PO SCH ×2 (08:24→21:25)
[2017-06-08] MEDS: PANTOPRAZOLE 40 MG (PROTONIX) TAB PO SCH (08:24)
[2017-06-08] MEDS: DOCUSATE SODIUM 100 MG (COLACE) CAP PO SCH (08:25)
[2017-06-08] MEDS: predniSONE 5 MG TAB PO SCH (08:25)
[2017-06-08] MEDS: VITAMIN D3 1,000 UNITS (CHOLECALCIFEROL) TABLET PO SCH ×2 (08:25→21:25)
--- NOTE | 2017-06-08 08:30 | Progress Note ---
Subjective Date Seen by Provider: Jun 08, 2017 Time Seen by Provider: 08:29 Subjective/Events-last exam PT IS AN 81 Y/O FEMALE WHO IS KNOWN TO ME FROM CLINIC. SHE PRESENTED TO THE HOSPITAL WITH ACUTE FATIGUE, WEAKNESS WAS FOUND TO BE IN AFIB WITH RVR. SHE REPORTS THAT HER SHOULDER PAIN WAS QUITE SEVERE THIS WEEKEND AFTER HAVING BEEN GIVEN BLOOD THINNER AGENTS - LOVENOX - SHE STATES THAT THE STEEL WORKER HAS HELPED HER PAIN QUITE A BIT AND SHE IS FEELING BETTER. STAFF NOTES THAT SHE MAX'D OUT THE STEEL WORKER THIS WEEKEND. Review of Systems General: Fatigue, Malaise HEENT: No Head Aches Pulmonary: No Dyspnea, No Cough Cardiovascular: No: Chest Pain, Palpitations Gastrointestinal: No: Nausea, Abdominal Pain Musculoskeletal: shoulder pain Neurological: Weakness Objective Exam Last Set of Vital Signs Vital Signs Date Time Temp Pulse Resp B/P (MAP) Pulse Ox O2 Delivery O2 Flow Rate FiO2 06/08/17 08:00 96.0 85 20 132/89 (103) 93 Room Air Capillary Refill : Less Than 3 Seconds I&O Intake and Output 06/08/17 00:00 Intake Total 1750 ml Output Total 1370 ml Balance 380 ml Intake Oral 350 ml IV Total 1400 ml Output Urine Total 1370 ml General: Alert, Oriented X3, Cooperative HEENT: Atraumatic, PERRLA Neck: No JVD Lungs: Clear to Auscultation, Normal Air Movement Heart: No Murmurs, Other (Atrial fibrillation with rapid ventricular response) Abdomen: Normal Bowel Sounds, Soft Extremities: No Clubbing, Other (BRUISING ON SHOULDERS, ENLARGED SHOULDERS AND WRISTS AND FINGER JOINTS) Skin: No Rashes, Other (EXTENSIVE BRUISING THROUGHT RIGHT AND LEFT SHOULDERS - TRACKING DOWN TO CHEST) Neuro: Normal Speech, Normal Tone, Sensation Intact, Other Psych/Mental Status: Mental Status NL, Mood NL Results Lab Laboratory Tests 06/08/17 03:45: White Blood Count 5.9, Red Blood Count 3.11L, Hemoglobin 10.3L, Hematocrit 30L, Mean Corpuscular Volume 97, Mean Corpuscular Hemoglobin 33, Mean Corpuscular Hemoglobin Concent 34, Red Cell Distribution Width 13.6, Platelet Count 265, Mean Platelet Volume 9.4, Sodium Level 124*L, Potassium Level 4.2, Chloride Level 92L, Carbon Dioxide Level 22, Anion Gap 10, Blood Urea Nitrogen 12, Creatinine 0.65, Estimat Glomerular Filtration Rate > 60, BUN/Creatinine Ratio 18, Glucose Level 194H, Calcium Level 8.1L, Magnesium Level 1.7L Assessment/Plan Assessment/Plan Assess & Plan/Chief Complaint ATRIAL FIBRILLATION WITH RVR CHRONIC HYPERTENSION HYPONATREMIA RHEUMATOID ARTHRITIS WITH HEMARTHROSIS OF SHOULDER ON RIGHT EXTENSIVE JOINT PAIN CHRONIC PRESCRIPTION NARCOTIC USE ANEMIA IRON DEFICIENCY ATRIAL FIBRILLATION WITH RVR - RATE CONTROLLED PER DR. ROUSE - WILL CHANGE TO CARDIZEM CD 240MG DAILY - MONITOR BLOOD PRESSURE AND HEART RATE RESPONSE - PT IS UNABLE TO TAKE ORAL ANTICOAGULATION DUE TO HER SEVERE ARTHRITIS AND RECURRENT HEMARTHROSIS OF BILATERAL SHOULDERS. CHRONIC HYPERTENSION - ON CARDIZEM HYPONATREMIA - FLUID RESTRICTION - MONITOR SODIUM LEVELS - PT HAS CHRONIC EDEMA OF BILATERAL LOWER LEGS AND ARMS - SHOULD IMPROVE WITH FLUID RESTRICTION. RHEUMATOID ARTHRITIS WITH HEMARTHROSIS OF SHOULDER ON RIGHT WITH EXTENSIVE JOINT PAIN AND NEED FOR CHRONIC PRESCRIPTION NARCOTIC USE - DECREASE STEEL WORKER SETTINGS - AND WILL STOP STEEL WORKER TOMORROW MORNING. ANEMIA DUE TO IRON DEFICIENCY - MONITOR CBC OUTPT AND IRON LEVELS OUTPT - PERIODIC IV IRON INFUSIONS. START PHYSICAL THERAPY TODAY- WILL DISCHARGE TO HOME WITH HOME HEALTH PHYSICAL THERAPY - [facility] PT HAS HAD [facility] IN HER HOME IN THE PAST FOR THERAPY. Clinical Quality Measures DVT/VTE Risk/Contraindication: Risk Factor Score Per Nursin RFS Level Per Nursing on Admit: 4+=Very High WOODY CARBONE MD Jun 08, 2017 08:30
[2017-06-08] MEDS ORDERED: FENTANYL 25 MCG PATCH REMOVAL TP SCH (08:59)
[2017-06-08] MEDS ORDERED: fentaNYL PATCH 25 MCG (DURAGESIC) TD SCH (09:00)
[2017-06-08] MEDS ORDERED: HYDROmorphone PF INJECTION 20 MG in NS (IVPB) 100 ML IV PRN (10:00)
--- NOTE | 2017-06-08 10:01 | Cardiology Progress Note ---
Subjective Date Seen by Provider: Jun 08, 2017 Time Seen by Provider: 10:00 Subjective/Events-last exam patient is laying down in bed, feeling better, reporting having better energy. Less pain in her shoulder. Review of Systems General: No Chills, No Night Sweats, No Fatigue, No Malaise, No Appetite, No Other HEENT: No Head Aches, No Visual Changes, No Eye Pain, No Ear Pain, No Dysphasia , No Sinus Congestion, No Post Nasal Drip, No Sore Throat, No Other Pulmonary: No Dyspnea, No Cough, No Pleuritic Chest Pain, No Other Cardiovascular: No: Chest Pain, Palpitations, Orthopnea, Paroxysmal Noc. Dyspnea, Edema, Lt Headedness, Other Objective-Cardiology Exam Last Set of Vital Signs Vital Signs 06/08/17 08:00 Temp 96.0 Pulse 85 Resp 20 B/P (MAP) 132/89 (103) Pulse Ox 93 Capillary Refill : Less Than 3 Seconds I&O Intake and Output 06/08/17 00:00 Intake Total 1750 ml Output Total 1370 ml Balance 380 ml Intake Oral 350 ml IV Total 1400 ml Output Urine Total 1370 ml General: Alert, Oriented X3, Cooperative HEENT: Atraumatic, PERRLA Neck: Supple, No JVD, No Thyromegaly Lungs: Clear to Auscultation, Normal Air Movement Heart: Normal S1, Normal S2, No Murmurs, Other (Atrial fibrillation with rapid ventricular response) Abdomen: Normal Bowel Sounds, Soft, No Tenderness, No Hepatosplenomegaly, No Masses Extremities: No Clubbing, No Cyanosis, No Edema, Normal Pulses, No Tenderness/ Swelling Skin: No Rashes, No Breakdown, No Significant Lesion Neuro: Normal Speech, Strength at 5/5 X4 Ext, Normal Tone, Sensation Intact Psych/Mental Status: Mental Status NL, Mood NL Results Lab Laboratory Tests 06/08/17 03:45 A/P-Cardiology Admission Diagnosis Atrial fibrillation Tachycardia Hyponatremia Hypomagnesemia Assessment/Plan Atrial fibrillation, heart rate is better controlled. Continue to monitor and continue current medication, okay for discharge from cardiology standpoint and follow-up as an outpatient. I will start Cardizem CD 240 mg daily and evaluate her tolerance and response [id number] score of 3, yearly risk of stroke without oral anticoagulation is 3.2 percent. Significant bleeding with Lovenox, unable to tolerate anticoagulation, patient understand the risk of stroke. Generalized weakness and loss of energy, hypotension, blood pressure is better at this time. Continue to monitor Gastroesophageal reflux disease, history of peptic ulcer disease, maintained on PPI and Carafate. Continue to monitor Hyponatremia, probably secondary to diuretics, persistent, continue to monitor Anemia, significant drop in hemoglobin after Lovenox injection. Discontinue anticoagulation monitor H&H Hypomagnesemia, replace and monitor Arthritis, significant history of intra-articular bleeding, status post bleeding in the right shoulder, underwent aspiration. Feeling better. Chronic pain, receiving multiple pain medications History of DVT in the past, not on oral anticoagulation Clinical Quality Measures DVT/VTE Risk/Contraindication: Risk Factor Score Per Nursin RFS Level Per Nursing on Admit: 4+=Very High MARGAUX ROUSE MD Jun 08, 2017 10:01
[2017-06-08] MEDS ORDERED: DILTIAZEM 240 MG (CARDIZEM CD) CAP PO SCH (10:15)
[2017-06-08 12:00] VITALS: BP 134/78
--- NOTE | 2017-06-08 14:59 | Physical Therapy Evaluation ---
PT Evaluation-General Medical Diagnosis Admission Date Jun 06, 2017 at 11:43 Medical Diagnosis: A-fib with RVR Onset Date: Jun 06, 2017 Therapy Diagnosis Therapy Diagnosis: debility Height/Weight Height (Feet): 5 Height (Inches): 7.00 Weight (Pounds): 158 Weight (Ounces): 0.0 Precautions Precautions/Isolations: Standard Precautions Weight Bear Status Right Lower Extremity: Right Full Weight Bearing Left Lower Extremity: Left Full Weight Bearing Referral Physician: Ricardo Reason for Referral: Evaluation/Treatment Medical History Pertinent Medical History: Arthritis, GERD, HTN, Neuropathy, OA, Rheumatoid Arthritis, Smoking Additional Medical History spinal cord injury/internal bleeding shoulder joints Current History ED with weakness, chronic neck pain/nonhealing left foot wound with boot Reviewed History: Yes Social History Current Living Status: Other Family Entry Into Home: Level Entry Prior/Core FIM Prior Level of Function Functional [place] Measure 0=Not Assessed/NA 4=Minimal Assistance 1=Total Assistance 5=Supervision or Setup 2=Maximal Assistance 6=Modified [place] 3=Moderate Assistance 7=Complete [place] Bed Mobility: 6 Transfers (B,C,W/C) (FIM): 6 Gait: 6 PT Evaluation-Current Subjective Patient agrees to PT. Pain Numeric Pain Scale: 0-No Pain Location: No Pain Reported Objective Patient Orientation: Normal For Age Problem Solving: Fair Attachments: IV ROM/Strength ROM Lower Extremities bilateral LE WNL Strength Lower Extremities right knee flexion/extension 4/5; hip flexion 4/5; DF/PF NT left knee flexion/extension 4/5; hip flexion 4/5; DF/PF 4/5 Integumentary/Posture Integumentary refer to nursing notes Sensory Vision: Functional Hearing: Functional Sensation Right Lower Extremit: Impaired Sensation Left Lower Extremity: Impaired Transfers Functional [place] Measure 0=Not Assessed/NA 4=Minimal Assistance 1=Total Assistance 5=Supervision or Setup 2=Maximal Assistance 6=Modified [place] 3=Moderate Assistance 7=Complete [place] Transfers (B, C, W/C) (FIM): 5 Scootin Rollin Supine to/from Sit: 5 Sit to/from Stand: 5 Gait Mode of Locomotion: Walk Anticipated Mode of Locomotion: Walk Gait (FIM): 5 Distance (FIM): 3=150 ft Distance: 250' Gait Level of Assist: 5 Gait Assistive Device: Walker 4 Wheeled Comments/Gait Description functional and safe Balance Sitting Static: Normal Sitting Dynamic: Normal Standing Static: Normal Standing Dynamic: Normal Assessment/Needs 81 y.o. female, will be seen short term by skilled PT to address functional mobility to ensure safe return to home with family and home health intervention. Rehab Potential: Fair PT Short Term Goals Short Term Goals Time Frame: Jun 09, 2017 Transfers (B,C,W/C) (FIM): 5 Gait (FIM): 5 Distance (FIM): 3=150 ft Gait Level of Assist: 5 Gait Assistive Device: Walker 4 Wheeled PT Plan Treatment/Plan Treatment Plan: Continue Plan of Care Treatment Plan: Education, Functional Activity Shamika, Functional Strength, Gait , Safety, Therapeutic Exercise Treatment Duration: Jun 10, 2017 Frequency: 3 times per week Estimated Hrs Per Day: .25 hour per day Patient and/or Family Agrees t: Yes Discharge Recommendations Therapy D/C Recommendations: Home w/ Family Support, Physical Therapy Home Care Time/GCodes Time In: 1351 Time Out: 1421 Total Billed Treatment Time: 30 Total Billed Treatment 1 visit [facility] 30 min JAIMIE GOINS PT Jun 08, 2017 14:59
[2017-06-08 16:32] VITALS: BP 119/67
[2017-06-08 20:00] VITALS: BP 133/80
[2017-06-08] MEDS: NS IV 1000 ML 1,000 ML IV SCH (22:52)
[2017-06-08] MEDS: POLYETHYLENE GLYCOL 17 GM (MIRALAX) PACK PO SCH (22:58)
[2017-06-09] VITALS: BP 129/76
[2017-06-09] MEDS: methylPREDNISolone 40 MG/ML (Solu-MEDROL) VIAL IV SCH ×3 (00:39→11:34)
[2017-06-09 04:00] VITALS: BP 136/75
[2017-06-09] MEDS: SUCRALFATE 1 GM (CARAFATE) TAB PO SCH ×2 (05:50→11:32)
[2017-06-09] MEDS: PANTOPRAZOLE 40 MG (PROTONIX) TAB PO SCH (05:50)
[2017-06-09] MEDS: predniSONE 5 MG TAB PO SCH (05:50)
--- NOTE | 2017-06-09 07:13 | Cardiology Progress Note ---
Subjective Date Seen by Provider: Jun 09, 2017 Time Seen by Provider: 07:11 Subjective/Events-last exam Patient is laying down in bed, feeling better, breathing better, had physical therapy yesterday. Denied any chest pain Review of Systems General: No Chills, No Night Sweats, No Fatigue, No Malaise, No Appetite, No Other HEENT: No Head Aches, No Visual Changes, No Eye Pain, No Ear Pain, No Dysphasia , No Sinus Congestion, No Post Nasal Drip, No Sore Throat, No Other Pulmonary: Dyspnea, No Cough, No Pleuritic Chest Pain, No Other Cardiovascular: No: Chest Pain, Palpitations, Orthopnea, Paroxysmal Noc. Dyspnea, Edema, Lt Headedness, Other Objective-Cardiology Exam Last Set of Vital Signs Vital Signs Capillary Refill : Less Than 3 Seconds I&O Intake and Output 06/09/17 00:00 Intake Total 920 ml Output Total 475 ml Balance 445 ml Intake Oral 920 ml Output Urine Total 475 ml # Voids 2 # Bowel Movements 5 General: Alert, Oriented X3, Cooperative HEENT: Atraumatic, PERRLA Neck: No JVD Lungs: Clear to Auscultation, Normal Air Movement Heart: Normal S1, Normal S2, No Murmurs, Other (Atrial fibrillation with rapid ventricular response) Abdomen: Normal Bowel Sounds, Soft Extremities: No Clubbing, Other (BRUISING ON SHOULDERS, ENLARGED SHOULDERS AND WRISTS AND FINGER JOINTS) Skin: No Rashes, Other (EXTENSIVE BRUISING THROUGHT RIGHT AND LEFT SHOULDERS - TRACKING DOWN TO CHEST) Neuro: Normal Speech, Normal Tone, Sensation Intact, Other Psych/Mental Status: Mental Status NL, Mood NL A/P-Cardiology Admission Diagnosis Atrial fibrillation Tachycardia Hyponatremia Hypomagnesemia Assessment/Plan Atrial fibrillation, heart rate is better controlled, increase Cardizem CD to 360 mg daily and monitor heart rate and blood pressure response [id number] score of 3, yearly risk of stroke without oral anticoagulation is 3.2 percent. Significant bleeding with Lovenox, unable to tolerate anticoagulation, patient understand the risk of stroke. Generalized weakness and loss of energy, hypotension, blood pressure is better at this time. Continue to monitor Gastroesophageal reflux disease, history of peptic ulcer disease, maintained on PPI and Carafate. Continue to monitor Hyponatremia, probably secondary to diuretics, persistent, followed and managed by primary care physician Anemia, significant drop in hemoglobin after Lovenox injection. Discontinue anticoagulation monitor H&H Arthritis, significant history of intra-articular bleeding, status post bleeding in the right shoulder, underwent aspiration. Feeling better. Chronic pain, receiving multiple pain medications History of DVT in the past, not on oral anticoagulation Okay for discharge from cardiology standpoint, range for follow-up in my office in one week Clinical Quality Measures DVT/VTE Risk/Contraindication: Risk Factor Score Per Nursin RFS Level Per Nursing on Admit: 4+=Very High MARGAUX ROUSE MD Jun 09, 2017 07:13
[2017-06-09 08:17] VITALS: BP 135/77
--- NOTE | 2017-06-09 08:41 | Discharge Summary ---
Diagnosis/Chief Complaint Date of Admission Jun 06, 2017 at 11:43 Date of Discharge 06/09/17 Discharge Date: Jun 09, 2017 Discharge Time: 12:00 Discharge Summary Discharge Physical Examination Allergies: Coded Allergies: Penicillins (Verified Allergy, Unknown, 08/11/12) Sulfa (Sulfonamide Antibiotics) (Verified Allergy, Unknown, 09/17/16) Vitals & I&Os Vital Signs Date Time Temp Pulse Resp B/P (MAP) Pulse Ox O2 Delivery O2 Flow Rate FiO2 06/09/17 08:17 96.6 83 18 135/77 (96) 96 Room Air General Appearance: Alert, Oriented X3, Cooperative HEENT: Atraumatic, PERRLA Respiratory: Clear to Auscultation, Normal Air Movement Cardiovascular: Normal S1, Normal S2, No Murmurs, Other (Atrial fibrillation with rapid ventricular response) Abdominal: Normal Bowel Sounds, Soft Extremities: No Clubbing, Other (BRUISING ON SHOULDERS, ENLARGED SHOULDERS AND WRISTS AND FINGER JOINTS) Skin: No Rashes, Other (EXTENSIVE BRUISING THROUGHT RIGHT AND LEFT SHOULDERS - TRACKING DOWN TO CHEST) Neuro: Normal Speech, Normal Tone, Sensation Intact, Other Psych/Mental Status: Mental Status NL, Mood NL Discharge Instructions to patient/family Please see electronic discharge instructions given to patient. Discharge Medications Reviewed and agree with Discharge Medication list on patient's Discharge Instruction sheet Clinical Quality Measures DVT/VTE Risk/Contraindication: Risk Factor Score Per Nursin RFS Level Per Nursing on Admit: 4+=Very High WOODY CARBONE MD Jun 09, 2017 08:41
[2017-06-09] MEDS ORDERED: DILT360C26 PO (08:43)
--- NOTE | 2017-06-09 08:48 | D/C HH Face to Face Order ---
D/C Face to Face Orders Instructions for Patient Patient Instructions/FollowUp: EVAL AND TREAT WITH [facility] NEW MEDICATION OF CARDIZEM 360MG DAILY NO OTHER MEDICATION CHANGES Physician to follow Patient: RAF Discharge Diet for Home: Regular Diet Patient Problems: AFIB WITH RVR, WEAKNESS, RHEUMATOID ARTHRITIS, HEMARTHROSIS Goals for Patient: IMRPOVED STRENGTH AND INDEPENDENCE Patient Data-Allergies,Ht & Wt Patient Allergies: Coded Allergies: Penicillins (Verified Allergy, Unknown, 08/11/12) Sulfa (Sulfonamide Antibiotics) (Verified Allergy, Unknown, 09/17/16) Height (Feet): 5 Height (Inches): 7.00 Weight (Pounds): 159 Weight (Ounces): 0.0 Home Health Need/Face to Face Date of Face to Face: Jun 09, 2017 Clinical Findings: Generalized weakness and fatigue, Muscle weakness, Unsteady gait I have seen Pt [id number]: Yes Discharged To: Home Diagnosis/Conditions: AFIB WITH RVR, WEAKNESS, RHEUMATOID ARTHRITIS, HEMARTHROSIS Problems/Diagnosis/Condition: Patient is Homebound due to: Dmitriy fall risk due to instabilty, Muscle weakness , Pain w/ambulation Homebound Status Due to the above stated illness, injury or surgical procedure (medical condition or diagnosis) and associated clinical findings, the patient is homebound because of his/her inability to leave home except with aid of a supportive device and/or person AND leaving the home requires a considerable and taxing effort or is medically contraindicated. Pt req the following assistanc: Walker Home Health Nursing Orders Home Health Services Order: Physical Therapy-Evaluate & Treat Home Health Infusion Therapy Line Type: Peripheral IV Site Location: Hand Therapy Orders Therapy Orders: Physical Therapy Therapy Specific Orders: Eval assistive deivces, Teach enviro modifications/ safety, Gait training, Increase strength/endurance Certify Stmt I certify that this patient is under my care and that I, a nurse practitioner or a physician; a children's nursery assistant working with me, had a face to face encounter that - meets the physician face to face encounter requirements with this patient as dated. WOODY CARBONE MD Jun 09, 2017 08:48
[2017-06-09] MEDS ORDERED: DILTIAZEM 180 MG (CARDIZEM CD) CAP PO SCH (09:00)
--- NOTE | 2017-06-09 09:10 | Physical Therapy Daily Note ---
PT Daily Note-Current Subjective Agreeable to PT. Reports she is going home today. Reports she wished to have [facility] PT . Transfers Functional [place] Measure 0=Not Assessed/NA 4=Minimal Assistance 1=Total Assistance 5=Supervision or Setup 2=Maximal Assistance 6=Modified [place] 3=Moderate Assistance 7=Complete [place] Quality Coding Scale 6 Independent with activity with or without an assistive device 5 Patient requires set up or clean up by helper. Patient completes activity by themselves 4 Supervision or touching assist (CGA). Elroy provide cues , steadying assist 3 The helper provides less than half the effort to complete the activity 2 The helper provides more than half the effort to complete the activity 1 Dependent. The helper does all the effort to complete an activity 7 Patient refused to complete or attempt activity 9 The patient did not perform the activity before the current illness or injury 88 Not attempted due to Medical conditions or safety concerns Transfers (B, C, W/C) (FIM): 6 Mod indep with bed mobility and transfers. She is slow with the transfer but is safe and does not need assist. Weight Bearing Right Lower Extremity: Right Full Weight Bearing Left Lower Extremity: Left Full Weight Bearing Gait Training Gait (FIM): 5 (5- 6 with gait.) Distance (FIM): 3=150 ft Gait Assistive Device: Walker 4 Wheeled Safe and steady gait without assist. Treatments Education on safety with mobililty and to continue with regular exercise and mobility. Assessment Current Status: Good Progress Good progress. Appears safe from a mobility standpoint to discharge this date. PT Short Term Goals Short Term Goals Time Frame: Jun 09, 2017 Transfers (B,C,W/C) (FIM): 5 Gait (FIM): 5 (met) Distance (FIM): 3=150 ft Gait Level of Assist: 5 Gait Assistive Device: Walker 4 Wheeled PT Plan Problem List Problem List: Activity Tolerance, Functional Strength, Safety Treatment/Plan Treatment Plan: Discontinue PT Treatment Plan: Education, Functional Activity Shamika, Functional Strength, Gait , Safety, Therapeutic Exercise Treatment Duration: Jun 10, 2017 Frequency: 3 times per week Estimated Hrs Per Day: .25 hour per day Patient and/or Family Agrees t: Yes Safety Risks/Education Patient Education: Safety Issues Teaching Recipient: Patient Teaching Methods: Discussion Response to Teaching: Return Demonstration Discharge Recommendations Therapy D/C Recommendations: Physical Therapy Home Care Time/GCodes Time In: 815 Time Out: 838 Total Billed Treatment Time: 23 Total Billed Treatment visit GT 23 ORA REZA PT Jun 09, 2017 09:10
[2017-06-09] MEDS: CALCIUM CARB + VIT D 600 MG (CALCARB + D) TAB PO SCH (09:18)
[2017-06-09] MEDS: DOCUSATE SODIUM 100 MG (COLACE) CAP PO SCH (09:18)
[2017-06-09] MEDS: VITAMIN D3 1,000 UNITS (CHOLECALCIFEROL) TABLET PO SCH (09:18)
[2017-06-09 11:26] VITALS: BP 133/79
[2017-06-10] MEDS ORDERED: FENTANYL 100 MCG PATCH REMOVAL TP SCH (08:59)
== END 2017-06-09 12:15 | disposition home health service (06) | DRG 309 ==
LOC: EDUNIT# 09:46 → ER 09:47 → ICU 11:43
PROVIDERS: ADMIT Internal Medicine; ATTEND Internal Medicine
PROC: 0R9K3ZZ Drainage of Left Shoulder Joint, Percutaneous Approach (ICD-10-PCS; principal; 2017-06-07)
DX: I48.0 Paroxysmal atrial fibrillation (principal); E87.1 Hypo-osmolality and hyponatremia; T50.2X5A Adverse effect of carbonic-anhydrase inhibitors, benzothiadiazides and other diuretics, initial encounter; M25.011 Hemarthrosis, right shoulder; T45.515A Adverse effect of anticoagulants, initial encounter; D62 Acute posthemorrhagic anemia; E87.6 Hypokalemia; M06.9 Rheumatoid arthritis, unspecified; E78.00 Pure hypercholesterolemia, unspecified; E86.1 Hypovolemia; I95.9 Hypotension, unspecified; K21.9 Gastro-esophageal reflux disease without esophagitis; E83.42 Hypomagnesemia; M19.91 Primary osteoarthritis, unspecified site; G62.9 Polyneuropathy, unspecified; M79.7 Fibromyalgia; K58.9 Irritable bowel syndrome, unspecified; K59.03 Drug induced constipation; T40.605A Adverse effect of unspecified narcotics, initial encounter; D50.9 Iron deficiency anemia, unspecified; R60.0 Localized edema; Z79.52 Long term (current) use of systemic steroids; Z79.891 Long term (current) use of opiate analgesic; Z87.11 Personal history of peptic ulcer disease; Z86.718 Personal history of other venous thrombosis and embolism; Z96.653 Presence of artificial knee joint, bilateral; Z87.891 Personal history of nicotine dependence
CPT/HCPCS: 36415; 71045; 80048; 80053; 80061; 81000; 83735; 83874; 84443; 84484; 85025; 85027; 85610; 85730; 93005; 93041; 96361; 96374

== ENCOUNTER → 2017-06-17 | Outpatient (CLI) | payer MEDICARE, OTHER ==
[~2017-06-17] MED LIST changes: +CALC-694 PO; +CHOL10007 PO; +CNC1KV IJ; +DILT360C26 PO; +DOCU100C37 PO; +FENT1PAT8 TD; +INFL100V IV; +METO5TAB6 PO; +PRD10T PO
[2017-06-17 14:50] LABS: HEMOGLOBIN 10.4 G/DL (11.5-16.0); MEAN PLATELET VOLUME 8.6 FL (7.4-10.4); RED BLOOD COUNT 3.14 10^6/uL (4.35-5.85); RED CELL DISTRIBUTION WIDTH 14.1 % (10.0-14.5); WHITE BLOOD COUNT 8.4 10^3/uL (4.3-11.0)
== END ==
LOC: LAB 14:30
PROVIDERS: ATTEND Family Medicine
DX: D50.0 Iron deficiency anemia secondary to blood loss (chronic) (principal)
CPT/HCPCS: 36415; 85027

== ENCOUNTER 2017-12-03 09:04 | Inpatient (IN) | payer MEDICARE, OTHER ==
[~2017-12-03] VITALS: Ht 170.2 cm; Wt 65.9 kg
--- NOTE | 2017-12-03 09:32 | Consultation ---
History of Present Illness History of Present Illness Patient Consulted On(nisha/time) 12/03/17 09:32 Date Seen by Provider: Dec 04, 2017 Time Seen by Provider: 09:30 Reason for Visit: ADVANCED ARTHRITIS WITH GENERALIZED LYMPHEDEMA History of Present Illness PT IS AN 82 Y/O FEMALE WHO IS WELL KNOWN TO ME FROM CLINIC. SHE PRESENTED TO CLINIC ON 11/29/17 WITH COMPLAINT OF WORSENING WEAKNESS, INCREASED ARTHRITIS PAIN AND WEAKNESS WITH WORSENING EDEMA OF UPPER AND LOWER EXTREMITIES IMPAIRING HER ABILITY TO BE INDEPENDENT AT HER DAUGHTERS HOME. SHE HAS HAD WORSENING SWELLING OF HER HANDS, ARMS, AND LOWER LEGS WITH BLISTERS FORMING ON HER LOWER LEGS CAUSING SEVERE PAIN AND DECREASED MOBILITY AND A DECLINE IN HER FUNCTIONING AT HOME. Allergies and Home Medications Allergies Coded Allergies: Penicillins (Verified Allergy, Unknown, 08/11/12) Sulfa (Sulfonamide Antibiotics) (Verified Allergy, Unknown, 09/17/16) Home Medications Ascorbate Calcium 500 Mg Tablet, 500 MG PO HS, (Reported) Bumetanide 0.5 Mg Tablet, 0.5 MG PO 1600, (Reported) Calcium Carbonate/Vitamin D3 1 Each Tablet, 1 TAB PO BID, (Reported) Cholecalciferol (Vitamin D3) 1,000 Unit Capsule, 1,000 UNIT PO BID, (Reported) Cyanocobalamin 1,000 Mcg/Ml Inj, 1,000 MCG IJ MONTHLY, (Reported) Denosumab 60 Mg/1 Ml Disp.syrin, SQ EVERY 6 MONTHS, (Reported) Diltiazem HCl 360 Mg Cap.er.24h, 360 MG PO DAILY, (Reported) Fentanyl 1 Each Patch.td72, 25 MCG TD Q72H, (Reported) Fentanyl 1 Each Patch.td72, 100 MCG TD Q72H, (Reported) Furosemide 20 Mg Tablet, 20 MG PO 0130,1330, (Reported) Iodine/Sodium Iodide 30 Ml Tincture, TP HS, (Reported) APPLY AROUND EDGE OF SORE ON BOTTOM OF RIGHT FOOT Oxycodone HCl 30 Mg Tablet, 15 MG PO QID, (Reported) TAKES 1/2 OF A (30 MG) TABLET Pantoprazole Sodium 40 Mg Tablet.dr, 40 MG PO DAILY, (Reported) Polyethylene Glycol 3350 17 Gm Powd.pack, 17 GM PO HS, (Reported) Potassium Chloride 10 Meq Tablet.er, 10 MEQ PO 0,1330, (Reported) Prednisone 5 Mg Tablet, 5 MG PO 0130, (Reported) Silver Sulfadiazine 25 Gm Cream..g., TOP HS, (Reported) APPLY TO BOTTOM OF RIGHT FOOT Patient Home Medication List Home Medication List Reviewed: Yes Past [id number] Hx Past Med/Social Hx: Reviewed Nursing Past Med/Soc Hx, Reviewed and Corrections made Patient Social History Alcohol Use: Occasionally Uses Alcohol Beverage of Choice: Wine, Vodka Recreational Drug Use: No Smoking Status: Former Smoker Type Used: Cigarettes Former Smoker, Quit: Dec 05, 1961 2nd Hand Smoke Exposure: No Recent Foreign Travel: No Contact w/Someone Who Travel: No Recent Infectious Disease Expo: No Recent Hopitalizations: No Physical Abuse: No Sexual Abuse: No Mistreated: No Fear: No Immunizations Up To Date Tetanus Booster (TDap): Unknown PED Vaccines UTD: Yes Date of Pneumonia Vaccine: Mar 02, 2014 Date of Influenza Vaccine: Nov 28, 2016 Seasonal Allergies Seasonal Allergies: No Past Medical History Surgeries: Yes (6 back and 3 total knees, 4 alt. 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 HIV/AIDS: No Genitourinary: No Bladder Infection Gastrointestinal: Yes (Bleeding ulcer August 2016) Gastroesophageal Reflux, Gastrointestinal Bleed, Obstructive Bowel, Ulcer, Irritable Bowel Musculoskeletal: Yes (multiple back and knee surgeries, osteoarthritis, SCIATICA) Degenerate Disk Disease, Arthritis, Fibromyalgia, Rheumatoid Arthritis, Chronic Back Pain, Fractures Endocrine: No HEENT: No Cataract Loss of Vision: Denies Hearing Impairment: Hard of Hearing Cancer: No Psychosocial: No Integumentary: No Blood Disorders: Yes (hx of anemia) Adverse Reaction/Blood Tranf: No Family Medical History Reviewed and Corrections made Heart Disease, Hypertension Review of Systems-General Constitutional: No chills, No fever; malaise, weakness, weight gain EENTM: No hoarseness, No throat pain Respiratory: No cough, No dyspnea on exertion; short of breath (INTERMITTENT) Gastrointestinal: No abdominal pain; constipation (INTERMITTENT); No loss of appetite, No nausea Genitourinary: frequency, other (MANDUJANO IN PLACE) Musculoskeletal: back pain, muscle weakness, neck pain, other (SHOULDER PAIN) Skin: other (BRUISING LEFT LOWER LEG WITH BLISTER AND BLISTER ON LEFT UPPER ARM AT ELBOW) Psychiatric/Neurological: Denies Anxiety, Denies Depressed; Weakness All Other Systems Reviewed Negative Unless Noted: Yes Physical Exam-General Problems Physical Exam Vital Signs Capillary Refill : General Appearance: WD/WN, mild distress (DUE TO PAIN) Eyes: Bilateral Eye Normal Inspection, Bilateral Eye PERRL, Bilateral Eye EOMI HEENT: PERRL/EOMI, pharynx normal Neck: non-tender, other (CERVICAL COLLAR IN PLACE - SOFT COLLAR) Respiratory: chest non-tender, lungs clear, normal breath sounds, no respiratory distress, no accessory muscle use Cardiovascular: regular rate, rhythm Gastrointestinal: normal bowel sounds, non tender, soft Back: no CVA tenderness, no vertebral tenderness Extremities: pedal edema (4+ PITTING TO ABDOMEN), other (DECREASED ROM UPPER EXTREMITIES AT SHOULDERS) 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 as tested, alert, normal mood/affect, oriented x 3 Skin: warm/dry, ecchymosis (LOWER LEG - CALF ON LEFT) Lymphatic: no adenopathy Assessment/Plan Assessment/Plan Admission Diagnosis/Plan INFLAMMATORY ARTHRITIS OF SHOULDERS, HANDS ARTHRITIS OF KNEES CHRONIC PAIN SYNDROME LYMPHEDEMA HYPERTENSION ESOPHAGEAL REFLUX CHRONIC STEROID USE ANEMIA VITAMIN D DEFICIENCY HYPOKALEMIA INFLAMMATORY ARTHRITIS OF SHOULDERS, HANDS AND ARTHRITIS OF KNEES - WITH CHRONIC PAIN SYNDROME: PT HAS BEEN ON MULTIPLE TREATMENTS WITH [employer] - HOWEVER EARLIER THIS YEAR - THEY TOLD HER THAT THERE IS NOTHING ELSE THAT THEY CAN DO AND HAVE RELEASED HER BACK INTO MY CARE - SHE WILL BE MAINTAINED ON CHRONIC PAIN MEDICATION OF FENTANYL AND PRN OXYCODONE AND DAILY STEROIDS - WILL GIVE A BURST OF STEROID FOR THE NEXT FEW DAYS THEN GO BACK TO PREDNISONE 5MG DAILY ONLY. LYMPHEDEMA - UNCONTROLLED SYMPTOMS - I HAVE ADVISED ADMISSION FOR INPT REHAB AND WE WILL DO THE FOLLOWING: - IV LASIX - INITIATED YESTERDAY AT 5MG/HOUR AND WILL INCREASE TODAY TO 7MG/ HOUR - MONITOR OUTPUT AND OVER THE WEEKEND WILL LIKELY GO BACK DOWN TO 5MG/HOUR. HYPOKALEMIA - ON ADMISSION LEVEL WAS 3.3 AND TODAY 2.9, WILL GIVE IV POTASSIUM TODAY AND INCREASE POTASSIUM TO 20MEQ TID, MONITOR POTASSIUM AND MAGNESIUM LEVELS. HYPERTENSION - RESTARTED CARDIZEM ON ADMISSION ESOPHAGEAL REFLUX - RESTARTED PPI ON ADMISSION. CHRONIC STEROID USE - GIVE PREDNISONE 20MG DAILY X 3 DAYS THEN BACK DOWN TO 5MG DAILY. ANEMIA - STABLE - CHECK LABS VITAMIN D DEFICIENCY - LOW VITAMIN D - VITAMIN D2 50,000 UNITS WEEKLY - FIRST DOSE TODAY. AND VITAMIN D3 1000 UNITS TWICE DAILY. LEG PAIN - ULTRASOUND NEGATIVE FOR DVT HOLD OFF ON LOVENOX FOR DVT PROPHYLAXIS DUE TO HX OF SEVERE INTRAARTICULAR JOINT HEMARTHROSIS AFTER LAST TIME SHE GOT LOVENOX. Admission Status: Inpatient Order (span 2 midnights) Reason for Inpatient Admission: INPATIENT REHAB ADMISSION - WILL REQUIRE MORE THAN TWO MIDNIGHTS FOR STRENGTHENING OF PATIENT AND IMRPOVEMENT OF THE SWELLING WOODY CARBONE MD Dec 03, 2017 09:32
[2017-12-03 09:55] VITALS: BP 137/84
[2017-12-03 10:06] LABS: HEMOGLOBIN 12.1 G/DL (11.5-16.0); MEAN PLATELET VOLUME 8.8 FL (7.4-10.4); RED BLOOD COUNT 3.63 10^6/uL (4.35-5.85); RED CELL DISTRIBUTION WIDTH 12.3 % (10.0-14.5); WHITE BLOOD COUNT 7.8 10^3/uL (4.3-11.0)
[2017-12-03 10:24] LABS: ALANINE AMINOTRANSFERASE 21 U/L (0-55); ALBUMIN 3.8 GM/DL (3.2-4.5); ALKALINE PHOSPHATASE 74 U/L (40-136); BUN/CREATININE RATIO 48; CARBON DIOXIDE 27 MMOL/L (21-32); CHLORIDE 96 MMOL/L (98-107); CREATININE SERUM 0.81 MG/DL (0.60-1.30); GFR ESTIMATED > 60; GLUCOSE 102 MG/DL (70-105); MAGNESIUM 1.9 MG/DL (1.8-2.4); POTASSIUM 3.3 MMOL/L (3.6-5.0); SODIUM 137 MMOL/L (135-145); TOTAL PROTEIN 6.9 GM/DL (6.4-8.2)
--- NOTE | 2017-12-03 10:30 | Physical Therapy Evaluation ---
PT Evaluation-General Medical Diagnosis Admission Date Dec 03, 2017 at 09:04 Medical Diagnosis: lymphedema Onset Date: Dec 02, 2017 Therapy Diagnosis Therapy Diagnosis: impaired strength, mobility, balance, and endurance Height/Weight Height (Feet): 5 Height (Inches): 7.00 Weight (Pounds): 159 Weight (Ounces): 0.0 Weight Bear Status Right Lower Extremity: Right Full Weight Bearing Left Lower Extremity: Left Full Weight Bearing Referral Physician: Nasim Reason for Referral: Evaluation/Treatment Medical History Pertinent Medical History: Arthritis, GERD, HTN, Neuropathy, OA, Rheumatoid Arthritis, Smoking Additional Medical History edema in LEs, appendectomy, back surgery x6, lumpectomy, hysterectomy, knee surgery x6 Current History pt admitted to inpatient rehab from home due to decreased functional independence, debility Reviewed History: Yes Social History Home: Multilevel Current Living Status: Children PT Steps Inside Home: 10 pt has chair lift to get up/down stairs at home Prior/Core FIM Prior Level of Function Functional [place] Measure 0=Not Assessed/NA 4=Minimal Assistance 1=Total Assistance 5=Supervision or Setup 2=Maximal Assistance 6=Modified [place] 3=Moderate Assistance 7=Complete [place] Bed Mobility: 6 Transfers (B,C,W/C) (FIM): 6 Gait: 6 ambulates w/ 4WW PT Evaluation-Current Subjective pt in chair pre tx, agrees to PT, reports pain "all over" due to RA, pt needs to use toilet before leaving room Pt/Family Goals to be independent at home Objective Patient Orientation: Normal For Age ROM/Strength ROM Lower Extremities WFL Strenght Lower Extremities RLE (hip flexion 2/5, knee extension 3+/5, knee flexion NT due to painful wounds , plantarflexion 3/5, dorsiflexion 3/5) LLE (hip flexion 2/5, knee extension 4/5, knee flexion NT due to painful wounds , plantarflexion, 3/5, dorsiflexion 3/5) Integumentary/Posture Integumentary wounds, see nursing note Neuromuscular (Tone, Coordination, Reflexes) NT Sensory Vision: Functional Hearing: Impaired Sensation Right Lower Extremit: Impaired Sensation Left Lower Extremity: Intact Sensation Lower Extremities diminished light touch sensation in R foot Transfers Functional [place] Measure 0=Not Assessed/NA 4=Minimal Assistance 1=Total Assistance 5=Supervision or Setup 2=Maximal Assistance 6=Modified [place] 3=Moderate Assistance 7=Complete IndependenceIRFPAI Quality Coding Scale 6 Independent with activity with or without an assistive device 5 Patient requires set up or clean up by helper. Patient completes activity by themselves 4 Supervision or touching assist (CGA). [place] provide cues , steadying assist 3 The helper provides less than half the effort to complete the activity 2 The helper provides more than half the effort to complete the activity 1 Dependent. The helper does all the effort to complete an activity 7 Patient refused to complete or attempt activity 9 The patient did not perform the activity before the current illness or injury 88 Not attempted due to Medical conditions or safety concerns Transfers (B, C, W/C) (FIM): 3 Scootin Rollin Roll Left to Right (QC): 2 Supine to/from Sit: 3 Sit to/from Stand: 4 Sit to Lying (QC): 2 Lying to Sitting/Side of Bed(Q: 2 Sit to Stand (QC): 3 Chair/Ffl-sd-Hspuw Xfer(QC): 2 Car Transfer (QC): 2 sit<->stand Maddie w/ cues for hand placement and safety, supine<->sit modA, needs assistance getting both legs into/out of bed and sitting up, car transfer mod A, needs assistance getting both legs into/out of car, Gait Does the Patient Walk?: Yes Mode of Locomotion: Walk Anticipated Mode of Locomotion: Walk Gait (FIM): 2 Walk 10 feet (QC): 4 Walk 50 ft with 2 Turns(QC): 4 Walk 150 ft (QC): 88 Walking 10ft/uneven surface-QC: 4 Distance: 120'x2 Gait Level of Assist: 4 Gait Persons Needed: 1 Gait Assistive Device: Walker 4 Wheeled Comments/Gait Description pt ambulates w/ 4WW, CGA, gait is slow but steady, pt demonstrates external rotation of LLE, no LOB Wheelchair Training Does the Pt Use a Wheelchair?: No Stairs Stairs (FIM): 88 #of Steps: 0 1 Step (curb) (QC): 88 4 Steps (QC): 88 12 Steps (QC): 88 If not tested on admit;explain inadequate hip flexion bilaterally to perform steps Balance Sitting Static: Normal Sitting Dynamic: Normal Standing Static: Fair Standing Dynamic: Fair Picking up an Object (QC): 88 Treatment seated exercises: LAQs, APs x30, sit to stand x5, patient was toileted once Assessment/Needs impaired mobility, balance, strength, and endurance, would benefit from PT services Rehab Potential: Fair PT Short Term Goals Short Term Goals Time Frame: Dec 10, 2017 Transfers (B,C,W/C) (FIM): 4 Gait (FIM): 4 Gait Distance Comment: 150' Gait Level of Assist: 4 Gait Assistive Device: Walker 4 Wheeled PT Production Sanitizer Goals Production Sanitizer Goals PT Mcc Goals Time Frame: Dec 24, 2017 Transfers (B,C,W/C) (FIM): 5 Sit to Lying (QC): 4 Lying-Sitting on Side/Bed(QC): 4 Sit to Stand (QC): 4 Rollin Roll Left to Right (QC): 4 Chair/Flh-ji-Ytnng Xfer(QC): 4 Car Transfer (QC): 4 Does the Patient Walk: Yes Gait (FIM): 5 Distance: 250' Walk 10 feet (QC): 4 Walk 10ft-Uneven Surface(QC): 4 Walk 50ft with 2 Turns (QC): 4 Walk 150 ft (QC): 4 Gait Level of Assist: 5 Gait Assistive Device: Walker 4 Wheeled Stairs (FIM): 2 # of Steps: 4 1 Step (curb) (QC): 4 4 Steps (QC): 4 Stairs Level Of Assist: 5 Picking up an Object (QC): 4 PT Plan Problem List Problem List: Activity Tolerance, Functional Strength, Safety, Balance, Gait, Transfer, Bed Mobility, ROM Treatment/Plan Treatment Plan: Continue Plan of Care Treatment Plan: Bed Mobility, Concurrent Therapy, Education, Functional Activity Shamika, Functional Strength, Group Therapy, Gait, Safety, Therapeutic Exercise, Transfers Treatment Duration: Dec 24, 2017 Frequency: At least 5 of 7 days/Wk (IRF) Estimated Hrs Per Day: 1.5 hours per day Patient and/or Family Agrees t: Yes Safety Risks/Education Patient Education: Gait Training, Transfer Techniques, Correct Positioning, Safety Issues Teaching Recipient: Patient Teaching Methods: Demonstration, Discussion Response to Teaching: Reinforcement Needed Discharge Recommendations Plan Pt will perform gait training, bed mobility, balance training, transfer training , stair training, functional strengthening, endurance training, and education to be independent at home. Therapy D/C Recommendations: Home w/ Family Support Time/GCodes Time In: 0930 Time Out: 1030 Total Billed Treatment Time: 60 Total Billed Treatment 1 visit EVM 30' FA 15' EX 15' GARETT CLEMENT PT Dec 03, 2017 10:30
[2017-12-03] MEDS ORDERED: PRED5TAB PO (11:27)
[2017-12-03] MEDS ORDERED: BUME0.5T3 PO (11:27)
[2017-12-03] MEDS ORDERED: DILT360C36 PO (11:27)
[2017-12-03] MEDS ORDERED: ASCO-262 PO (11:27)
[2017-12-03] MEDS ORDERED: POTA10TA10 PO (11:27)
--- NOTE | 2017-12-03 12:40 | Occupational Therapy Eval ---
OT Evaluation-General/PLF Medical Diagnosis Admission Date Dec 03, 2017 at 09:04 Medical Diagnosis: Lymphedema Onset Date: Dec 02, 2017 Therapy Diagnosis Therapy Diagnosis: Weakness Height/Weight Height (Feet): 5 Height (Inches): 7.00 Weight (Pounds): 159 Weight (Ounces): 0.0 Precautions Precautions/Isolations: Fall Prevention, Standard Precautions, Pressure Ulcer Weight Bear Status Weight Bearing Restriction: Weight Bearing/Tolerated Referral Physician: Nasim Referral Reason: Activity Tolerance, Self Care, Evaluation/Treatment, Strengthening/ROM Medical History Pertinent Medical History: Arthritis, GERD, HTN, Neuropathy, OA, Rheumatoid Arthritis, Smoking Additional Medical History Pt. has had multiple back surgeries, one left knee replacement and two right knee replacements. Pt. has had lymphedema in all joints, but can't report on how long. Current History Pt. wears neck brace and shoulder brace due to RA and joint weakness. Reviewed History: Yes Social History Home: Multilevel (Pt. lives in apartment in basement of daughter's house.) Current Living Status: Children Entry Into Home: Level Entry Steps Inside Home: 10 (Pt. has chair lift that she uses.) ADL-Prior Level of Function ADL PLOF Comments Pt. states that due to her lymphedema, her legs are wrapped in raheem wraps twice a day. In the morning by her daughter, and in the evening by a paid caregiver. She also has someone (Richie BURCIAGA from [employer]) that is skilled in lymphedema therapy that comes twice a week. At this point, they clean and wrap her legs. Pt. states that in the morning, she is able to spongebathe herself, but her daughter dresses her and her caregiver at night undresses her and gets her ready for bed. DME/Equipment Comments Pt. has a rolling walker and lift chair at home that she sleeps in. Pt. also has a stool riser and grab bars. Does not shower and has not showered in some time. Pt. states that she feels that she gets very clean from spongebathing. OT Current Status Subjective Pt. reports that her neck is uncomfortable in bed, but does not report a pain level. OT works to make neck comfortable by removing neck brace and adding pillows. Pt. also reports that she is very hungry and gets nauseated if she gets too hungry. Requests to order her lunch. Appearance Pt. is dressed and has makeup on, hair fixed. Has come from home and has already spongebathed/dressed. Mental Status/Objective Patient Orientation: Person, Place, Time, Situation Current Hand Dominance: Right Upper Extremity ROM Pt. is able to utilize both hands, but is only able to flex left shoulder approximately 45 degrees. Pt. is wearing brace on right shoulder for stability due to RA. Upper Extremity Coordination impaired due to RA Upper Extremity Strength 3/5 bilateral hands. Edema: Pt. has edema in bilateral UE and bilateral LE. ADL-Treatment Functional [place] Measure 0=Not Assessed/NA 4=Minimal Assistance 1=Total Assistance 5=Supervision or Setup 2=Maximal Assistance 6=Modified [place] 3=Moderate Assistance 7=Complete IndependenceIRFPAI Quality Coding Scale 6 Independent with activity with or without an assistive device 5 Patient requires set up or clean up by helper. Patient completes activity by themselves 4 Supervision or touching assist (CGA). [place] provide cues , steadying assist 3 The helper provides less than half the effort to complete the activity 2 The helper provides more than half the effort to complete the activity 1 Dependent. The helper does all the effort to complete an activity 7 Patient refused to complete or attempt activity 9 The patient did not perform the activity before the current illness or injury 88 Not attempted due to Medical conditions or safety concerns Eating (FIM): 5 (Set up for feeding.) Eating (QC): 4 Toileting (FIM): 4 (CGA in stance so that pt. can cleanse self. Min assist to pull up pants in back.) Toileting Hygiene (QC): 4 Transfers (B, C, W/C) (FIM): 3 (Mod assist supine-sit and sit-supine. Min assist sit-stand.) Toilet/Commode Transfer (FIM): 4 Toilet Transfer (QC): 4 Other Treatments OT will speak to lymphedema therapist regarding this pt. Will either develop plan or keep current routine that pt. is following at home to decrease swelling and lymphedema in total system. All needs met after treatment. Education OT Patient Education: Correct positioning, Modified ADL techniques, Progress toward Goal/Update tx plan, Purpose of tx/functional activities, Reviewed precautions, Rehab process, Transfer techniques Teaching Recipient: Patient Teaching Methods: Demonstration, Discussion Response to Teaching: Verbalize Understanding, Return Demonstration OT Short Term Goals Short Term Goals 1=Demonstrate adherence to instructed precautions during ADL tasks. 2=Patient will verbalize/demonstrate understanding of assistive devices/ modifications for ADL. 3=Patient will improve strength/tolerance for activity to enable patient to perform ADL's. OT Mammal Keeper Goals Mammal Keeper Goals Time Frame: Dec 17, 2017 Eating (FIM): 6 Eating (QC): 6 Groomin Oral Hygiene (QC): 5 Bathing(FIM): 5 Shower/Bathe Self (QC): 5 Toileting(FIM): 6 Toileting Hygiene (QC): 6 Transfers (B,C,W/C) (FIM): 6 Toilet/Commode Transfer(FIM): 6 Toilet/Commode Transfer (QC): 6 Pt. does not shower at home, and does not dress self. Therefore, these will not be goals to achieve in this setting. However, OT will assist pt. with spongebath and will provide dressing assist. Additional Goals: 1-Demonstrate ADL Tasks, 2-Verbalize Understanding, 3- ImproveStrength/Shamika 1=Demonstrate adherence to instructed precautions during ADL tasks. 2=Patient will verbalize/demonstrate understanding of assistive devices/ modifications for ADL. 3=Patient will improve strength/tolerance for activity to enable patient to perform ADL's. OT Education/Plan Problem List/Assessment Assessment: Decreased Activ Tolerance, Decreased UE Strength, Dependent Transfers, Edema, Impaired Bed Mobility, Impaired Coordination, Impaired Funct Balance, Impaired I ADL's, Impaired Self-Care Skills, Restricted Funct UE ROM Discharge Recommendations Plan/Recommendations: Continue POC Therapy D/C Recommendations: Home w/ Family Support, Occupational Therapy Home Care, Scheduled Assistance Treatment Plan/Plan of Care Treatment,Training & Education: Yes Patient would benefit from OT for education, treatment and training to promote independence in ADL's, mobility, safety and/or upper extremity function for ADL' s. Plan of Care: ADL Retraining, Functional Mobility, Group Exercise/Act as Ind, UE Funct Exercise/Act Treatment Duration: Dec 17, 2017 Frequency: At least 5 of 7 days/Wk (IRF) Estimated Hrs Per Day: 1.5 hours per day Agreement: Yes Rehab Potential: Fair Time/GCodes Start Time: 10:30 Stop Time: 12:00 Total Time Billed (hr/min): 90 Billed Treatment Time 1, EVH x 15minutes, ADL x 75minutes COURTNEY MILES OT Dec 03, 2017 12:40
[2017-12-03] MEDS ORDERED: SILV25CR21 TOP (13:35)
[2017-12-03] MEDS ORDERED: POLY17PO27 PO (13:35)
[2017-12-03] MEDS ORDERED: IODI30TI TP (13:35)
--- NOTE | 2017-12-03 13:36 | Occupational Ther Daily Note ---
OT Current Status-Daily Note Subjective Pt seen in room, up in bed, agreeable to OT. Needs to toilet. No pain mentioned Appearance Alert, cooperative Mental Status/Objective Functional [place] Measure 0=Not Assessed/NA 4=Minimal Assistance 1=Total Assistance 5=Supervision or Setup 2=Maximal Assistance 6=Modified [place] 3=Moderate Assistance 7=Complete [place] ADL-Treatment Pt neeed mod assist to move from supine to sit EOB, help moving legs, then help scooting to EOB. Min assist sit to stand, with bed raised up. Walked CGA, 4WW to bathroom and transferred to BSC over toilet with CGA, 4WW. Pt managed clothing and hygiene with CGA and encouragement, taking extra time. At sink cleaned teeth and washed hands with SBA, 4WW. Pt education to lock brakes of 4WW when she is done moving. Pt walked back to bed CGA, 4WW and needed mod assist to get legs into bed. Pt left up in bed, all needs met. Functional [place] Measure 0=Not Assessed/NA 4=Minimal Assistance 1=Total Assistance 5=Supervision or Setup 2=Maximal Assistance 6=Modified [place] 3=Moderate Assistance 7=Complete IndependenceIRFPAI Quality Coding Scale 6 Independent with activity with or without an assistive device 5 Patient requires set up or clean up by helper. Patient completes activity by themselves 4 Supervision or touching assist (CGA). [place] provide cues , steadying assist 3 The helper provides less than half the effort to complete the activity 2 The helper provides more than half the effort to complete the activity 1 Dependent. The helper does all the effort to complete an activity 7 Patient refused to complete or attempt activity 9 The patient did not perform the activity before the current illness or injury 88 Not attempted due to Medical conditions or safety concerns Grooming (FIM): 5 (SBA) Oral Hygiene (QC): 4 (SBA at sink to clean dentures) Toileting (FIM): 4 (CGA when standing to manage clothing and hygiene. BSc over toilet, 4WW) Toilet/Commode Transfer (FIM): 4 (CGA getting on and off BSC over toilet. ) Education OT Patient Education: Modified ADL techniques, Purpose of tx/functional activities, Safety issues Teaching Recipient: Patient Teaching Methods: Demonstration, Discussion Response to Teaching: Verbalize Understanding, Return Demonstration, Reinforcement Needed OT Short Term Goals Short Term Goals 1=Demonstrate adherence to instructed precautions during ADL tasks. 2=Patient will verbalize/demonstrate understanding of assistive devices/ modifications for ADL. 3=Patient will improve strength/tolerance for activity to enable patient to perform ADL's. OT Care Home Goals Care Home Goals Time Frame: Dec 17, 2017 Eating (FIM): 6 Eating (QC): 6 Groomin Oral Hygiene (QC): 5 Bathing(FIM): 5 Shower/Bathe Self (QC): 5 Toileting(FIM): 6 Toileting Hygiene (QC): 6 Transfers (B,C,W/C) (FIM): 6 Toilet/Commode Transfer(FIM): 6 Toilet/Commode Transfer (QC): 6 Pt. does not shower at home, and does not dress self. Therefore, these will not be goals to achieve in this setting. However, OT will assist pt. with spongebath and will provide dressing assist. Additional Goals: 1-Demonstrate ADL Tasks, 2-Verbalize Understanding, 3- ImproveStrength/Shamika 1=Demonstrate adherence to instructed precautions during ADL tasks. 2=Patient will verbalize/demonstrate understanding of assistive devices/ modifications for ADL. 3=Patient will improve strength/tolerance for activity to enable patient to perform ADL's. OT Education/Plan Discharge Recommendations Plan/Recommendations: Continue POC Treatment Plan/Plan of Care Patient would benefit from OT for education, treatment and training to promote independence in ADL's, mobility, safety and/or upper extremity function for ADL' s. Plan of Care: ADL Retraining, Functional Mobility, Group Exercise/Act as Ind, UE Funct Exercise/Act Treatment Duration: Dec 17, 2017 Frequency: At least 5 of 7 days/Wk (IRF) Estimated Hrs Per Day: 1.5 hours per day Agreement: Yes Rehab Potential: Fair Time/GCodes Start Time: 13:00 Stop Time: 13:25 Total Time Billed (hr/min): 25 Billed Treatment Time visit, 25 minutes ADL JS PEREZ OT Dec 03, 2017 13:36
--- NOTE | 2017-12-03 13:41 | Occ Therapy Progress Note ---
Therapy Progress Note Have spoke with [facility] lymphedema specialist, (Jeet Nava, OTR/L). With pt's permission spoke with both pt. and Jeet regarding pt's current routine at home for lymphedema care. Lymphedema therapist recommends to continue same protocol, and to not provide retrograde massage to other limbs, as this may overwhelm lymphatic system. Will inform nursing of this conversation. [id number] COURTNEY MILES OT Dec 03, 2017 13:41
--- NOTE | 2017-12-03 14:11 | Physical Therapy Daily Note ---
PT Daily Note-Current Subjective pt in bed pre tx, agrees to PT, pain 5/10 multiple areas due to RA Appearance pt seated at EOB post tx w/ nurse in room, all needs met Mental Status Patient Orientation: Normal For Age Transfers Functional [place] Measure 0=Not Assessed/NA 4=Minimal Assistance 1=Total Assistance 5=Supervision or Setup 2=Maximal Assistance 6=Modified [place] 3=Moderate Assistance 7=Complete IndependenceIRFPAI Quality Coding Scale 6 Independent with activity with or without an assistive device 5 Patient requires set up or clean up by helper. Patient completes activity by themselves 4 Supervision or touching assist (CGA). [place] provide cues , steadying assist 3 The helper provides less than half the effort to complete the activity 2 The helper provides more than half the effort to complete the activity 1 Dependent. The helper does all the effort to complete an activity 7 Patient refused to complete or attempt activity 9 The patient did not perform the activity before the current illness or injury 88 Not attempted due to Medical conditions or safety concerns Transfers (B, C, W/C) (FIM): 3 Rollin Supine to/from Sit: 3 Sit to/from Stand: 4 sit<->stand Maddie, cues needed for hand placement and not flopping into chair/bed , supine<->sit modA w/ getting both legs into/out of bed Weight Bearing Right Lower Extremity: Right Full Weight Bearing Left Lower Extremity: Left Full Weight Bearing Gait Training Does the Patient Walk?: Yes Gait (FIM): 4 Distance: 150', 60' Gait Level of Assist: 4 Gait Persons Needed: 1 Gait Assistive Device: Walker 4 Wheeled pt ambulates w/ 4ww around rehab unit w/ CGA, steady w/ no LOB, but slow, Treatments gait training Assessment Current Status: Fair Progress improved control into bed/chair during stand->sit, PT Short Term Goals Short Term Goals Time Frame: Dec 03, 2017 PT Dye Padder Operator Goals Dye Padder Operator Goals PT Retirement Goals Time Frame: Dec 24, 2017 Transfers (B,C,W/C) (FIM): 6 Sit to Lying (QC): 6 Lying-Sitting on Side/Bed(QC): 6 Sit to Stand (QC): 6 Rollin Roll Left to Right (QC): 6 Chair/Bji-pb-Dhujs Xfer(QC): 6 Car Transfer (QC): 6 Does the Patient Walk: Yes Gait (FIM): 6 Distance: 250' Walk 10 feet (QC): 6 Walk 10ft-Uneven Surface(QC): 6 Walk 50ft with 2 Turns (QC): 6 Walk 150 ft (QC): 6 Gait Level of Assist: 6 Gait Assistive Device: Walker 4 Wheeled Stairs (FIM): 2 # of Steps: 4 1 Step (curb) (QC): 5 4 Steps (QC): 4 12 Steps (QC): 4 Stairs Level Of Assist: 5 Picking up an Object (QC): 4 PT Plan Problem List Problem List: Activity Tolerance, Functional Strength, Safety, Balance, Gait, Transfer, Bed Mobility Treatment/Plan Treatment Plan: Continue Plan of Care Treatment Plan: Bed Mobility, Concurrent Therapy, Education, Functional Activity Shamika, Functional Strength, Group Therapy, Gait, Safety, Therapeutic Exercise, Transfers Treatment Duration: Dec 24, 2017 Frequency: At least 5 of 7 days/Wk (IRF) Estimated Hrs Per Day: 1.5 hours per day Patient and/or Family Agrees t: Yes Safety Risks/Education Patient Education: Gait Training, Transfer Techniques, Correct Positioning, Safety Issues Teaching Recipient: Patient Teaching Methods: Demonstration, Discussion Response to Teaching: Reinforcement Needed Time/GCodes Time In: 1335 Time Out: 1345 Total Billed Treatment Time: 10 Total Billed Treatment 1 visit GT 10' ORA REZA PT Dec 03, 2017 14:11
[2017-12-03] MEDS ORDERED: CATHETER FLUSH 10 ML SYR IV PRN (15:15)
[2017-12-03] MEDS: FUROSEMIDE INJECTION 120 MG in D5W 100 ML IVPB 108 ML IV SCH (15:38)
--- NOTE | 2017-12-03 16:12 | Diagnostic Imaging Report ---
PROCEDURE: US venous lower extremity, bilaterally. TECHNIQUE: Multiple real-time grayscale images were obtained over the lower extremities in various projections, bilaterally. Additional duplex Doppler and color Doppler images were also obtained. INDICATION: Bilateral lower extremity edema, pain and ulcers. COMPARISON: 09/23/2016 and priors. FINDINGS: The bilateral common femoral vein, femoral vein, deep femoral vein, and popliteal vein are normal in appearance. These vessels show normal compressibility, color flow and Doppler augmentation. The visualized deep calf veins demonstrate no distinct intraluminal thrombus. There is significant subcutaneous edema present. Calcific atherosclerosis is noted. IMPRESSION: No sonographic evidence of deep venous thrombosis in the bilateral lower extremities. Dictated by: Dictated on workstation # [id number]
[2017-12-03] MEDS ORDERED: NON-FORMULARY MEDICATION 1 EA EA (Oxycodone HCl 15 MG) PO SCH (17:00)
[2017-12-03] MEDS: ASCORBIC ACID (VIT C) 500 MG TABLET PO SCH (17:54)
[2017-12-03] MEDS: CALCIUM CARB + VIT D 600 MG (CALCARB + D) TAB PO SCH (17:55)
[2017-12-03] MEDS: POLYETHYLENE GLYCOL 17 GM (MIRALAX) PACK PO SCH (19:43)
[2017-12-03] MEDS: SILVER SULFADIAZINE 400 GM CREAM TOP SCH (20:32)
[2017-12-03] MEDS: POVIDONE (BETADINE) 10% SOLN 240 ML BTL TOP SCH (20:33)
[2017-12-03] MEDS ORDERED: predniSONE 5 MG TAB ONE (20:41)
[2017-12-03] MEDS ORDERED: KCL 10 MEQ TAB (MICRO K) PO ONE (20:41)
[2017-12-03] MEDS: VITAMIN D3 1,000 UNITS (CHOLECALCIFEROL) TABLET PO SCH (20:46)
[2017-12-03] MEDS ORDERED: POVIDONE (BETADINE) 10% OINT 30 GM TUBE TOP SCH (21:00)
[2017-12-03] MEDS ORDERED: NON-FORMULARY MEDICATION 1 EA EA (Calcium Carbonate/Vitamin D3 (Calcium 600 + Vit D Caplet PO SCH (21:00)
[2017-12-03] MEDS ORDERED: POLYETHYLENE GLYCOL 17 GM PO SCH (21:00)
[2017-12-03] MEDS ORDERED: NON-FORMULARY MEDICATION 1 EA EA (Ascorbate Calcium (Vitamin C) 500 MG) PO SCH (21:00)
[2017-12-03] MEDS ORDERED: NON-FORMULARY MEDICATION 1 EA EA (Cholecalciferol (Vitamin D3) (Vitamin D3) 1,000 UNIT) PO SCH (21:00)
[2017-12-03] MEDS: CATHETER FLUSH 10 ML SYR IV SCH (22:31)
[2017-12-04] MEDS ORDERED: predniSONE 5 MG TAB PO SCH (01:30)
[2017-12-04] MEDS ORDERED: KCL 10 MEQ TAB (MICRO K) PO SCH ×2 (01:30→09:00)
[2017-12-04 05:08] LABS: HEMOGLOBIN 11.4 G/DL (11.5-16.0); MEAN PLATELET VOLUME 8.7 FL (7.4-10.4); RED BLOOD COUNT 3.5 10^6/uL (4.35-5.85); RED CELL DISTRIBUTION WIDTH 12.4 % (10.0-14.5); WHITE BLOOD COUNT 7.9 10^3/uL (4.3-11.0)
[2017-12-04 05:26] LABS: ALANINE AMINOTRANSFERASE 14 U/L (0-55); ALBUMIN 3.2 GM/DL (3.2-4.5); ALKALINE PHOSPHATASE 69 U/L (40-136); BILIRUBIN,TOTAL 0.7 MG/DL (0.1-1.0); BUN/CREATININE RATIO 46; CALCIUM 8.5 MG/DL (8.5-10.1); CARBON DIOXIDE 30 MMOL/L (21-32); CHLORIDE 97 MMOL/L (98-107); GFR ESTIMATED > 60; GLUCOSE 115 MG/DL (70-105); POTASSIUM 2.9 MMOL/L (3.6-5.0); SODIUM 139 MMOL/L (135-145); TOTAL PROTEIN 5.9 GM/DL (6.4-8.2)
[2017-12-04] MEDS: PANTOPRAZOLE 40 MG (PROTONIX) TAB PO SCH (06:35)
[2017-12-04] MEDS: CALCIUM CARB + VIT D 600 MG (CALCARB + D) TAB PO SCH ×3 (06:36→17:30)
[2017-12-04] MEDS: CATHETER FLUSH 10 ML SYR IV SCH ×3 (06:36→20:51)
[2017-12-04] MEDS ORDERED: FLU QUADRIvalent (5+ YOA) 2018-2019 (AFLURIA) 0.5 ML IM ONE (07:15)
[2017-12-04] MEDS: DILTIAZEM 180 MG (CARDIZEM CD) CAP PO SCH (08:34)
[2017-12-04] MEDS: VITAMIN D3 1,000 UNITS (CHOLECALCIFEROL) TABLET PO SCH ×2 (08:34→20:45)
[2017-12-04] MEDS ORDERED: NON-FORMULARY MEDICATION 1 EA EA (Diltiazem HCl (Diltiazem 24Hr ER) 360 MG) PO SCH (09:00)
--- NOTE | 2017-12-04 09:39 | Occupational Ther Daily Note ---
OT Current Status-Daily Note Subjective Pt alert, lying in bed. Finishing up with breakfast. Pt agrees to therapy. Mental Status/Objective Patient Orientation: Person, Place, Time, Situation Functional [place] Measure 0=Not Assessed/NA 4=Minimal Assistance 1=Total Assistance 5=Supervision or Setup 2=Maximal Assistance 6=Modified [place] 3=Moderate Assistance 7=Complete [place] Attachments: Bradford Catheter, IV ADL-Treatment Pt agrees to shower. Pt very worried on how the shower will go. B LE lymphedema wrap after shower. BURCIAGA reported to nrsg about wounds on sole of R foot and inside R calf (open blister/small blister on jacobo). Skin on B upper legs shiny. Ointment/Betadine prior to placing bandage. 5 raheem wraps for each LE from toes to top of thigh. Functional [place] Measure 0=Not Assessed/NA 4=Minimal Assistance 1=Total Assistance 5=Supervision or Setup 2=Maximal Assistance 6=Modified [place] 3=Moderate Assistance 7=Complete IndependenceIRFPAI Quality Coding Scale 6 Independent with activity with or without an assistive device 5 Patient requires set up or clean up by helper. Patient completes activity by themselves 4 Supervision or touching assist (CGA). [place] provide cues , steadying assist 3 The helper provides less than half the effort to complete the activity 2 The helper provides more than half the effort to complete the activity 1 Dependent. The helper does all the effort to complete an activity 7 Patient refused to complete or attempt activity 9 The patient did not perform the activity before the current illness or injury 88 Not attempted due to Medical conditions or safety concerns Grooming (FIM): 5 (Set up. Pt completed in sitting EOB.) Oral Hygiene (QC): 5 Bathing (FIM): 3 (Mod A, Pt completes using hand held shower and shower bench. Mod A in cleansing lower body/buttocks. ) Bathing Location: L Arm, R Arm, L Upper Leg, R Upper Leg, Chest, Abdomen, Perineal Area Shower/Bathe Self (QC): 3 Upper Body (FIM): 3 (Pt has assistance to complete upper body dressing at home , does not complete by self. Mod A, pt completes in sitting needing assistance in pulling shirt over head. ) Upper Body Dressing (QC): 9 Lower Body Dressing (FIM): 2 (Pt had assistance at home to complete lower body bathing and dressing. Max A in donning lower body dressing. ) Lower Body Dressing (QC): 9 On/Off Footwear (QC): 9 Toileting (FIM): 2 (Max A, assist to cleanse and manipulate clothing. ) Toileting Hygiene (QC): 2 Transfers (B, C, W/C) (FIM): 3 (Mod A, pt requires higher surfaces for ease of transfer. Pt uses EOB and 4WW for stability. ) Toilet/Commode Transfer (FIM): 3 (Mod A, pt completes using BSC, grabbars, and 4WW for stability. ) Toilet Transfer (QC): 3 Shower Transfer(FIM): 1 (Max A x2, pt requires higher surfaces to transfer. Pt uses grabbars, shower bench, and 4WW for stability. ) Decreased active B shldr ROM. Pt unable to reach above chest. Assist to don/ doff neck and back brace. OT Short Term Goals Short Term Goals Transfers (B,C,W/C) (FIM): 4 1=Demonstrate adherence to instructed precautions during ADL tasks. 2=Patient will verbalize/demonstrate understanding of assistive devices/ modifications for ADL. 3=Patient will improve strength/tolerance for activity to enable patient to perform ADL's. OT Fdc Goals Crop Setting Out Machine Operator Goals Time Frame: Dec 17, 2017 Eating (FIM): 6 Eating (QC): 6 Groomin Oral Hygiene (QC): 5 Bathing(FIM): 5 Shower/Bathe Self (QC): 5 Toileting(FIM): 6 Toileting Hygiene (QC): 6 Transfers (B,C,W/C) (FIM): 6 Toilet/Commode Transfer(FIM): 6 Toilet/Commode Transfer (QC): 6 Pt. does not shower at home, and does not dress self. Therefore, these will not be goals to achieve in this setting. However, OT will assist pt. with spongebath and will provide dressing assist. Additional Goals: 1-Demonstrate ADL Tasks, 2-Verbalize Understanding, 3- ImproveStrength/Shamika 1=Demonstrate adherence to instructed precautions during ADL tasks. 2=Patient will verbalize/demonstrate understanding of assistive devices/ modifications for ADL. 3=Patient will improve strength/tolerance for activity to enable patient to perform ADL's. OT Education/Plan Discharge Recommendations Plan/Recommendations: Continue POC Treatment Plan/Plan of Care Patient would benefit from OT for education, treatment and training to promote independence in ADL's, mobility, safety and/or upper extremity function for ADL' s. Plan of Care: ADL Retraining, Functional Mobility, Group Exercise/Act as Ind, UE Funct Exercise/Act Treatment Duration: Dec 17, 2017 Frequency: At least 5 of 7 days/Wk (IRF) Estimated Hrs Per Day: 1.5 hours per day Agreement: Yes Rehab Potential: Fair Time/GCodes Start Time: 07:00 Stop Time: 08:30 Total Time Billed (hr/min): 90 Billed Treatment Time 1 visit- ADL 6 (90 min) ORA GLEASON Dec 04, 2017 09:39
[2017-12-04] MEDS ORDERED: MAGNESIUM OXIDE (MAG-OX)400 MG TAB PO NR (10:42)
--- NOTE | 2017-12-04 11:01 | Physical Therapy Daily Note ---
PT Daily Note-Current Subjective Pt. states she doesnt use stairs or standard bed at home and is having great difficulty moving about here. C/o pain in LEs at 6/10 blake with attempts at movement Pain Numeric Pain Scale: 6 Location: Left (bilat LEs) Location Body Site: Calf Pain Description: Pressure Mental Status Patient Orientation: Normal For Age Attachments: Other-See Comments (custom shoes), IV Transfers Functional [place] Measure 0=Not Assessed/NA 4=Minimal Assistance 1=Total Assistance 5=Supervision or Setup 2=Maximal Assistance 6=Modified [place] 3=Moderate Assistance 7=Complete IndependenceIRFPAI Quality Coding Scale 6 Independent with activity with or without an assistive device 5 Patient requires set up or clean up by helper. Patient completes activity by themselves 4 Supervision or touching assist (CGA). [place] provide cues , steadying assist 3 The helper provides less than half the effort to complete the activity 2 The helper provides more than half the effort to complete the activity 1 Dependent. The helper does all the effort to complete an activity 7 Patient refused to complete or attempt activity 9 The patient did not perform the activity before the current illness or injury 88 Not attempted due to Medical conditions or safety concerns Transfers (B, C, W/C) (FIM): 3 Scootin Supine to/from Sit: 3 Sit to/from Stand: 4 (elevated height) Weight Bearing Right Lower Extremity: Right Full Weight Bearing Left Lower Extremity: Left Full Weight Bearing Gait Training Does the Patient Walk?: Yes Gait (FIM): 4 Distance (FIM): 3=150 ft (x2) Gait Level of Assist: 4 Gait Persons Needed: 1 Gait Assistive Device: FWW slow movement increased pain c/o Exercises Supine Ex: Ankle pumps, Quad Set, Glut sets, Heel Slides (assist), Scooting ( ssist), Straight leg raise (assist), Hip abd/add (assist) Supine Reps: 15 Seated Therapy Exercises: Ankle pumps, Long arc quads Seated Reps: 10 Treatments very limited funct mob, declines steps, sup to sit TRFs max dependent, sitting limited, pt. has modified home for all : step elevator, lift bed chair etc Assessment Current Status: Fair Progress LE pain & edema limits function PT Short Term Goals Short Term Goals Time Frame: Dec 10, 2017 Transfers (B,C,W/C) (FIM): 4 Gait (FIM): 4 Gait Distance Comment: 150' Gait Level of Assist: 4 Gait Assistive Device: Walker 4 Wheeled PT Assisted Goals Information Delivery Analyst Goals PT Assisted Goals Time Frame: Dec 24, 2017 Transfers (B,C,W/C) (FIM): 5 Sit to Lying (QC): 4 Lying-Sitting on Side/Bed(QC): 4 Sit to Stand (QC): 4 Rollin Roll Left to Right (QC): 4 Chair/Mfo-ol-Ptzzp Xfer(QC): 4 Car Transfer (QC): 4 Does the Patient Walk: Yes Gait (FIM): 5 Distance: 250' Walk 10 feet (QC): 4 Walk 10ft-Uneven Surface(QC): 4 Walk 50ft with 2 Turns (QC): 4 Walk 150 ft (QC): 4 Gait Level of Assist: 5 Gait Assistive Device: Walker 4 Wheeled Stairs (FIM): 2 # of Steps: 4 1 Step (curb) (QC): 4 4 Steps (QC): 4 Stairs Level Of Assist: 5 Picking up an Object (QC): 4 PT Plan Treatment/Plan Treatment Plan: Continue Plan of Care Treatment Plan: Bed Mobility, Concurrent Therapy, Education, Functional Activity Shamika, Functional Strength, Group Therapy, Gait, Safety, Therapeutic Exercise, Transfers Treatment Duration: Dec 24, 2017 Frequency: At least 5 of 7 days/Wk (IRF) Estimated Hrs Per Day: 1.5 hours per day Patient and/or Family Agrees t: Yes Safety Risks/Education Patient Education: Gait Training, Transfer Techniques, Correct Positioning, Disease Process, Safety Issues Teaching Recipient: Patient Teaching Methods: Demonstration, Discussion Response to Teaching: Verbalize Understanding, Return Demonstration, Reinforcement Needed Time/GCodes Time In: 910 Time Out: 1000 Total Billed Treatment Time: 50 Total Billed Treatment 1,FA20,EX15,GT15 G Codes Necessary: JULIANNE Inman INFRASTRUCTURE DEVELOPER Dec 04, 2017 11:01
[2017-12-04] MEDS: predniSONE 10 MG TAB PO SCH (11:26)
[2017-12-04] MEDS: KCL 10 MEQ TAB (MICRO K) PO SCH ×2 (11:26→20:45)
[2017-12-04] MEDS: POTASSIUM CL 10MEQ/50ML IVPB 50 ML IV SCH ×4 (11:26→17:26)
[2017-12-04] MEDS: FUROSEMIDE INJECTION 120 MG in D5W 100 ML IVPB 108 ML IV SCH (11:27)
[2017-12-04] MEDS: VITAMIN D2 50,000 UNITS (1.25 MG) CAP PO SCH (11:35)
[2017-12-04] MEDS ORDERED: ONDANSETRON 4 MG/2 ML (SDV) Z0FRAN IVP PRN (12:00)
--- NOTE | 2017-12-04 12:12 | Physical Therapy Daily Note ---
PT Daily Note-Current Subjective Pt. in bed, near sleeping. Awakens, nurse also in room. This MATRIX BATH ATTENDANT offering to change Rx time to 1pm so she could rest . Pt. declined and stated she wanted to get rx finished b/c she had company coming at 2pm. Incourse of rx pt. c/o her pain had escalated to a 10/10 all over blake in IV in left arm. Pt. also c/o nausea. All reported to nurse Pain Numeric Pain Scale: 10-Worst Possible Pain Location: Left Location Body Site: Elbow Pain Description: Stabbing Mental Status Patient Orientation: Person, Place, Time, Situation Attachments: Bradford Catheter, IV (x2) crying out in pain in left arm at mid line IV site Transfers Functional [place] Measure 0=Not Assessed/NA 4=Minimal Assistance 1=Total Assistance 5=Supervision or Setup 2=Maximal Assistance 6=Modified [place] 3=Moderate Assistance 7=Complete IndependenceIRFPAI Quality Coding Scale 6 Independent with activity with or without an assistive device 5 Patient requires set up or clean up by helper. Patient completes activity by themselves 4 Supervision or touching assist (CGA). [place] provide cues , steadying assist 3 The helper provides less than half the effort to complete the activity 2 The helper provides more than half the effort to complete the activity 1 Dependent. The helper does all the effort to complete an activity 7 Patient refused to complete or attempt activity 9 The patient did not perform the activity before the current illness or injury 88 Not attempted due to Medical conditions or safety concerns Transfers (B, C, W/C) (FIM): 3 sup to sit mod assist. sit to sup max assist back in to bed after being more uncomfortable in lift recline Weight Bearing Right Lower Extremity: Right Full Weight Bearing Left Lower Extremity: Left Full Weight Bearing Gait Training Gait Assistive Device: Walker 4 Wheeled 20 ft x 1, 10 ft x1 bed to recliner and recliner to bed 4WW min assist and assist IVs etc Treatments pt. moaning with pain all over and c/o nausea. In AM Rx pt. agreed to trial lift recline chair as an option to sit up in some fashion as she has only been in bed here. Pt. agreed but quickly wanted back in bed as this was very uncomfortable. pt. switched to air bed while up in recliner Assessment Current Status: Poor Progress pain and nausea c/o limited function. PT Short Term Goals Short Term Goals Time Frame: Dec 10, 2017 Transfers (B,C,W/C) (FIM): 4 Gait (FIM): 4 Gait Distance Comment: 150' Gait Level of Assist: 4 Gait Assistive Device: Walker 4 Wheeled PT Entry Level Finance Goals Entry Level Finance Goals PT Entry Level Finance Goals Time Frame: Dec 24, 2017 Transfers (B,C,W/C) (FIM): 5 Sit to Lying (QC): 4 Lying-Sitting on Side/Bed(QC): 4 Sit to Stand (QC): 4 Rollin Roll Left to Right (QC): 4 Chair/Nbs-fx-Synfo Xfer(QC): 4 Car Transfer (QC): 4 Does the Patient Walk: Yes Gait (FIM): 5 Distance: 250' Walk 10 feet (QC): 4 Walk 10ft-Uneven Surface(QC): 4 Walk 50ft with 2 Turns (QC): 4 Walk 150 ft (QC): 4 Gait Level of Assist: 5 Gait Assistive Device: Walker 4 Wheeled Stairs (FIM): 2 # of Steps: 4 1 Step (curb) (QC): 4 4 Steps (QC): 4 Stairs Level Of Assist: 5 Picking up an Object (QC): 4 PT Plan Treatment/Plan Treatment Plan: Continue Plan of Care Treatment Plan: Bed Mobility, Concurrent Therapy, Education, Functional Activity Shamika, Functional Strength, Group Therapy, Gait, Safety, Therapeutic Exercise, Transfers Treatment Duration: Dec 24, 2017 Frequency: At least 5 of 7 days/Wk (IRF) Estimated Hrs Per Day: 1.5 hours per day Patient and/or Family Agrees t: Yes Safety Risks/Education Patient Education: Gait Training, Transfer Techniques, Correct Positioning, Disease Process, Safety Issues Teaching Recipient: Patient Teaching Methods: Demonstration, Discussion Response to Teaching: Verbalize Understanding, Return Demonstration, Unable to Comprehend, Reinforcement Needed Time/GCodes Time In: 1130 Time Out: 1210 Total Billed Treatment Time: 40 Total Billed Treatment 1,FA40m G Codes Necessary: JULIANNE Inman MATRIX BATH ATTENDANT Dec 04, 2017 12:12
[2017-12-04 13:34] VITALS: BP 128/74
[2017-12-04] MEDS: fentaNYL PATCH 100 MCG (DURAGESIC) TD SCH (14:24)
[2017-12-04] MEDS: DICLOFENAC 1% GEL 100 GM (VOLTAREN) TUBE TOP SCH ×3 (14:24→20:50)
[2017-12-04] MEDS: FENTANYL 100 MCG PATCH REMOVAL TP SCH (14:25)
--- NOTE | 2017-12-04 14:58 | PM&R Post Admission Assessment ---
Post Admission Physician Asses Date seen by provider: Dec 04, 2017 Time seen by provider: 10:00 The preadmission screen agrees with the post admission assessment that the patient is a good candidate for inpatient rehabilitation. The patient will have a comprehensive program of inpatient rehabilitation with a goal of maximizing level of functional independence prior to discharge home with [facility]. The patient will have PT/OT ninety minutes per day, each discipline , five days a week for 14 days for gait, strengthening, conditioning, balance, ADLs, any patient/family/caregiver training as necessary. Speech therapy to do cognitive assessment and treat as indicated. Rehabilitation nursing to assist with bowel, bladder, skin, wound care, medication administration, pain management. Sheet Metal Former to assist with discharge planning, community reentry. SCD's for DVT prophylaxis. She appears to be well motivated to participate in three hours of therapy a day. She should be able to tolerate three hours of therapy a day from a medical standpoint. She should benefit from the three hours of therapy a day. She has a reasonable discharge plan, reasonable discharge rehabilitation goals and a supportive family. She has various comorbidities that need to be closely monitored with medications and treatments adjusted on a daily basis as needed. These include: Chronic arthritic pain Lymphedema with peripheral edema Barriers to discharge for this patient who had been independent prior to this are for her to be modified independent to supervision for ADLs and mobility skills [facility] , so as to lessen the burden of the caregivers. Risks for this patient include: 1. Fall 2. Fracture 3. DVT 4. Pulmonary embolism 5. Wound infection 6. Skin breakdown 7. Contractures 8. Poorly controlled pain 9. Urinary retention 10. UTI 11. Respiratory infection 12. Aspiration 13.worsening lymphedema Estimated Length of Stay: 14 days Prognosis: Rehab prognosis appears good for goal of discharge home with [facility] modified independent to supervision for ADLs and mobility skills. Date Identified: Dec 04, 2017 Time Identified: 14:30 Action Plan to Resolve CSMI: Meds adjusted for edema General: Alert, Oriented X3, Cooperative, No Acute Distress HEENT: Atraumatic, EOMI, Mucous Memb Moist/[place] Neck: Supple, No JVD Lungs: Clear to Auscultation Heart: Regular Rate Abdomen: Normal Bowel Sounds, Soft, No Tenderness Extremities: Other (plus edema ) Neuro: Other (generalized weakness Arthralgias) BERE BEAN MD Dec 04, 2017 14:58
[2017-12-04 16:21] VITALS: BP 137/87
[2017-12-04] MEDS ORDERED: POTASSIUM CL 10MEQ/50ML IVPB 150 ML IV ONE (16:23)
[2017-12-04] MEDS: ASCORBIC ACID (VIT C) 500 MG TABLET PO SCH (17:30)
[2017-12-04] MEDS: POLYETHYLENE GLYCOL 17 GM (MIRALAX) PACK PO SCH (19:17)
[2017-12-04] MEDS: predniSONE 5 MG TAB PO SCH (20:45)
[2017-12-04] MEDS: SILVER SULFADIAZINE 400 GM CREAM TOP SCH (20:50)
[2017-12-04] MEDS: POVIDONE (BETADINE) 10% SOLN 240 ML BTL TOP SCH (20:50)
[2017-12-05] MEDS: FUROSEMIDE INJECTION 120 MG in D5W 100 ML IVPB 108 ML IV SCH ×2 (04:39→20:46)
[2017-12-05 05:25] VITALS: BP 116/71
[2017-12-05 05:59] LABS: MEAN PLATELET VOLUME 8.9 FL (7.4-10.4); RED BLOOD COUNT 3.36 10^6/uL (4.35-5.85); RED CELL DISTRIBUTION WIDTH 12.3 % (10.0-14.5); WHITE BLOOD COUNT 8.2 10^3/uL (4.3-11.0)
[2017-12-05 06:22] LABS: BUN/CREATININE RATIO 39; CALCIUM 8.3 MG/DL (8.5-10.1); CARBON DIOXIDE 28 MMOL/L (21-32); CHLORIDE 96 MMOL/L (98-107); CREATININE SERUM 0.67 MG/DL (0.60-1.30); GFR ESTIMATED > 60; GLUCOSE 119 MG/DL (70-105); MAGNESIUM 1.7 MG/DL (1.8-2.4); POTASSIUM 3.3 MMOL/L (3.6-5.0); SODIUM 138 MMOL/L (135-145)
[2017-12-05] MEDS: CATHETER FLUSH 10 ML SYR IV SCH ×3 (06:54→20:47)
[2017-12-05] MEDS: CALCIUM CARB + VIT D 600 MG (CALCARB + D) TAB PO SCH ×2 (06:55→17:23)
[2017-12-05] MEDS: PANTOPRAZOLE 40 MG (PROTONIX) TAB PO SCH (06:56)
[2017-12-05] MEDS: POVIDONE (BETADINE) 10% SOLN 240 ML BTL TOP SCH (10:33)
[2017-12-05] MEDS: SILVER SULFADIAZINE 400 GM CREAM TOP SCH (10:33)
[2017-12-05] MEDS: VITAMIN D3 1,000 UNITS (CHOLECALCIFEROL) TABLET PO SCH ×2 (10:34→20:47)
[2017-12-05] MEDS: KCL 10 MEQ TAB (MICRO K) PO SCH ×3 (10:34→20:46)
[2017-12-05] MEDS: DILTIAZEM 180 MG (CARDIZEM CD) CAP PO SCH (10:34)
[2017-12-05] MEDS: DICLOFENAC 1% GEL 100 GM (VOLTAREN) TUBE TOP SCH ×4 (10:35→20:49)
[2017-12-05] MEDS: predniSONE 10 MG TAB PO SCH (10:38)
[2017-12-05] MEDS: FENTANYL 25 MCG PATCH REMOVAL TP SCH (10:43)
[2017-12-05] MEDS: fentaNYL PATCH 25 MCG (DURAGESIC) TD SCH (10:47)
[2017-12-05 10:49] VITALS: BP 148/79
--- NOTE | 2017-12-05 11:14 | Physical Therapy Daily Note ---
PT Daily Note-Current Subjective Patient in bed pre tx, agrees to PT, has no complaints of pain at rest. Patient would like her cervical collar put on while she is in bed but it will not fit without choking her, it barely fits when sitting on the side of the bed without choking her. Appearance Patient on toilet post tx with nursing. Mental Status Patient Orientation: Person, Place, Situation Attachments: Bradford Catheter, IV Transfers Functional [place] Measure 0=Not Assessed/NA 4=Minimal Assistance 1=Total Assistance 5=Supervision or Setup 2=Maximal Assistance 6=Modified [place] 3=Moderate Assistance 7=Complete IndependenceIRFPAI Quality Coding Scale 6 Independent with activity with or without an assistive device 5 Patient requires set up or clean up by helper. Patient completes activity by themselves 4 Supervision or touching assist (CGA). [place] provide cues , steadying assist 3 The helper provides less than half the effort to complete the activity 2 The helper provides more than half the effort to complete the activity 1 Dependent. The helper does all the effort to complete an activity 7 Patient refused to complete or attempt activity 9 The patient did not perform the activity before the current illness or injury 88 Not attempted due to Medical conditions or safety concerns Transfers (B, C, W/C) (FIM): 3 Scootin Rollin Supine to/from Sit: 3 Sit to/from Stand: 4 Bed to/from Chair: 4 Patient needs mod assist for supine to sit, needs assist with both legs and upper body to sit. She participates very little with bed mobility. Needs cues for hand placement during sit to stand and needs min assist to stand from low surfaces and cues for positioning. Weight Bearing Right Lower Extremity: Right Full Weight Bearing Left Lower Extremity: Left Full Weight Bearing Gait Training Gait (FIM): 2 Distance: 70'x2 Gait Level of Assist: 4 Gait Persons Needed: 1 Gait Assistive Device: FWW CGA, slow ambulation, patient grunts during ambulation but doesn't seem to get SOB Treatments bed mobility and transfers, ambulation Assessment Current Status: Poor Progress Patient is weak but expects assistants to perform a lot of the positioning and simple aspects of mobility that she should be performing on her own in order to promote improvement in functional mobility. PT Short Term Goals Short Term Goals Time Frame: Dec 10, 2017 Transfers (B,C,W/C) (FIM): 4 Gait (FIM): 4 Gait Distance Comment: 150' Gait Level of Assist: 4 Gait Assistive Device: Walker 4 Wheeled PT Mcfp Goals Director Of Consulting Services Goals PT Mcfp Goals Time Frame: Dec 24, 2017 Transfers (B,C,W/C) (FIM): 5 Sit to Lying (QC): 4 Lying-Sitting on Side/Bed(QC): 4 Sit to Stand (QC): 4 Rollin Roll Left to Right (QC): 4 Chair/Xbv-xz-Lkebu Xfer(QC): 4 Car Transfer (QC): 4 Does the Patient Walk: Yes Gait (FIM): 5 Distance: 250' Walk 10 feet (QC): 4 Walk 10ft-Uneven Surface(QC): 4 Walk 50ft with 2 Turns (QC): 4 Walk 150 ft (QC): 4 Gait Level of Assist: 5 Gait Assistive Device: Walker 4 Wheeled Stairs (FIM): 2 # of Steps: 4 1 Step (curb) (QC): 4 4 Steps (QC): 4 Stairs Level Of Assist: 5 Picking up an Object (QC): 4 PT Plan Problem List Problem List: Activity Tolerance, Functional Strength, Safety, Balance, Gait, Transfer, Bed Mobility, ROM Treatment/Plan Treatment Plan: Continue Plan of Care Treatment Plan: Bed Mobility, Concurrent Therapy, Education, Functional Activity Shamika, Functional Strength, Group Therapy, Gait, Safety, Therapeutic Exercise, Transfers Treatment Duration: Dec 24, 2017 Frequency: At least 5 of 7 days/Wk (IRF) Estimated Hrs Per Day: 1.5 hours per day Patient and/or Family Agrees t: Yes Safety Risks/Education Patient Education: Gait Training, Transfer Techniques, Correct Positioning, Safety Issues Teaching Recipient: Patient Teaching Methods: Demonstration, Discussion Response to Teaching: Reinforcement Needed Time/GCodes Time In: 1045 Time Out: 1105 Total Billed Treatment Time: 20 Total Billed Treatment 1 visit GT 20' GARETT CLEMENT PT Dec 05, 2017 11:13
[2017-12-05] MEDS: POTASSIUM CL 10MEQ/50ML IVPB 50 ML IV SCH ×4 (13:10→16:15)
[2017-12-05] MEDS: MAGNESIUM 1 GM/100 ML IVPB 100 ML IV SCH ×2 (13:11→14:03)
[2017-12-05] MEDS: ASCORBIC ACID (VIT C) 500 MG TABLET PO SCH (17:22)
[2017-12-05] MEDS: predniSONE 5 MG TAB PO SCH (20:47)
[2017-12-05] MEDS: POLYETHYLENE GLYCOL 17 GM (MIRALAX) PACK PO SCH (20:49)
[2017-12-06] MEDS: PANTOPRAZOLE 40 MG (PROTONIX) TAB PO SCH (05:27)
[2017-12-06] MEDS: CATHETER FLUSH 10 ML SYR IV SCH ×3 (05:27→22:00)
[2017-12-06] MEDS: CALCIUM CARB + VIT D 600 MG (CALCARB + D) TAB PO SCH ×2 (06:01→16:03)
[2017-12-06 08:00] VITALS: BP 128/79
[2017-12-06] MEDS: KCL 10 MEQ TAB (MICRO K) PO SCH ×3 (08:31→20:54)
[2017-12-06] MEDS: DILTIAZEM 180 MG (CARDIZEM CD) CAP PO SCH (08:33)
[2017-12-06] MEDS: VITAMIN D3 1,000 UNITS (CHOLECALCIFEROL) TABLET PO SCH ×2 (08:33→20:57)
[2017-12-06] MEDS: DICLOFENAC 1% GEL 100 GM (VOLTAREN) TUBE TOP SCH ×4 (08:38→21:09)
[2017-12-06] MEDS: FUROSEMIDE INJECTION 120 MG in D5W 100 ML IVPB 108 ML IV SCH (11:22)
[2017-12-06] MEDS: predniSONE 10 MG TAB PO SCH (11:26)
[2017-12-06 17:17] VITALS: BP 121/78
[2017-12-06] MEDS: ASCORBIC ACID (VIT C) 500 MG TABLET PO SCH (17:22)
[2017-12-06] MEDS: predniSONE 5 MG TAB PO SCH (20:57)
[2017-12-06] MEDS: POLYETHYLENE GLYCOL 17 GM (MIRALAX) PACK PO SCH (21:00)
[2017-12-06] MEDS: POVIDONE (BETADINE) 10% SOLN 240 ML BTL TOP SCH (21:06)
[2017-12-06] MEDS: SILVER SULFADIAZINE 400 GM CREAM TOP SCH (21:06)
[2017-12-07] MEDS: FUROSEMIDE INJECTION 120 MG in D5W 100 ML IVPB 108 ML IV SCH ×2 (01:06→18:14)
[2017-12-07 05:43] VITALS: BP 150/86
[2017-12-07] MEDS: CATHETER FLUSH 10 ML SYR IV SCH ×3 (06:00→21:00)
[2017-12-07 06:11] LABS: HEMOGLOBIN 13.4 G/DL (11.5-16.0); RED BLOOD COUNT 4.03 10^6/uL (4.35-5.85); RED CELL DISTRIBUTION WIDTH 12.4 % (10.0-14.5); WHITE BLOOD COUNT 8.4 10^3/uL (4.3-11.0)
[2017-12-07 06:28] LABS: BUN/CREATININE RATIO 34; CALCIUM 8.8 MG/DL (8.5-10.1); CARBON DIOXIDE 29 MMOL/L (21-32); CHLORIDE 96 MMOL/L (98-107); CREATININE SERUM 0.71 MG/DL (0.60-1.30); GFR ESTIMATED > 60; GLUCOSE 113 MG/DL (70-105); POTASSIUM 3.7 MMOL/L (3.6-5.0); SODIUM 139 MMOL/L (135-145)
[2017-12-07] MEDS: PANTOPRAZOLE 40 MG (PROTONIX) TAB PO SCH (06:39)
[2017-12-07] MEDS: CALCIUM CARB + VIT D 600 MG (CALCARB + D) TAB PO SCH ×2 (06:40→17:22)
[2017-12-07] MEDS: KCL 10 MEQ TAB (MICRO K) PO SCH ×3 (08:32→20:47)
[2017-12-07] MEDS: DILTIAZEM 180 MG (CARDIZEM CD) CAP PO SCH (08:32)
[2017-12-07] MEDS: VITAMIN D3 1,000 UNITS (CHOLECALCIFEROL) TABLET PO SCH ×2 (08:33→20:48)
[2017-12-07] MEDS: fentaNYL PATCH 100 MCG (DURAGESIC) TD SCH (08:34)
[2017-12-07] MEDS: DICLOFENAC 1% GEL 100 GM (VOLTAREN) TUBE TOP SCH ×4 (08:40→21:00)
[2017-12-07] MEDS: FENTANYL 100 MCG PATCH REMOVAL TP SCH (08:44)
--- NOTE | 2017-12-07 08:55 | Occupational Ther Daily Note ---
OT Current Status-Daily Note Subjective Pt alert, standing at sink in bathroom with nrsg. Pt agrees to therapy. Pt c/ o SOA due to edema, no c/o pain. Pt stated she was very happy that her LE's edema has decreased. Mental Status/Objective Patient Orientation: Person, Place, Time, Situation Functional [place] Measure 0=Not Assessed/NA 4=Minimal Assistance 1=Total Assistance 5=Supervision or Setup 2=Maximal Assistance 6=Modified [place] 3=Moderate Assistance 7=Complete [place] ADL-Treatment Mod A for supine to sitting. Ambulated with 4WW to bathroom with SBA, assist to manipulate IV pole. Assist to manipulate clothing and cleanse with toileting while pt balances self with 4WW and grabbars. Pt transferred into shower using 4WW, grabbars and raised shower chair with SBA. Assist to doff and don lower body clothing. Pt able to complete bathing using hand held shower , long handle sponge, high shower chair and grabbars. Assist to turn shower on and manipulate temperature then to take off and put on hand held shower. Assist to dry upper arms, buttocks and lower legs. Pt is able to stand at sink with 4WW to complete grooming. Pt fatigues quickly and c/o SOA. Lymphedema wrapping of B LE's completed. Edema has noticeable decreased from knees to feet. Wrapped R LE with 4 wraps to upper thigh. Wrapped L LE with 5 wraps to upper thigh. Ointment and Betadine applied to wounds. Pt then requested to use bathroom. SBA using 4WW to transfer to toilet, assist to manipulate clothing. Nrsg took over care of pt before pt was complete with toileting. Pt left in care of nrsg. All needs met in room. Functional [place] Measure 0=Not Assessed/NA 4=Minimal Assistance 1=Total Assistance 5=Supervision or Setup 2=Maximal Assistance 6=Modified [place] 3=Moderate Assistance 7=Complete IndependenceIRFPAI Quality Coding Scale 6 Independent with activity with or without an assistive device 5 Patient requires set up or clean up by helper. Patient completes activity by themselves 4 Supervision or touching assist (CGA). [place] provide cues , steadying assist 3 The helper provides less than half the effort to complete the activity 2 The helper provides more than half the effort to complete the activity 1 Dependent. The helper does all the effort to complete an activity 7 Patient refused to complete or attempt activity 9 The patient did not perform the activity before the current illness or injury 88 Not attempted due to Medical conditions or safety concerns Grooming (FIM): 5 Oral Hygiene (QC): 5 Bathing (FIM): 3 Bathing Location: L Upper Leg, R Upper Leg, Chest, Abdomen, Perineal Area Shower/Bathe Self (QC): 3 Upper Body (FIM): 2 (Assist to initiate clothing over arms, pt pulled up arms, assist to lift over shldrs and down back. Assist to hook bra and adjust.) Upper Body Dressing (QC): 2 Lower Body Dressing (FIM): 2 Lower Body Dressing (QC): 2 On/Off Footwear (QC): 1 Toileting (FIM): 2 Toileting Hygiene (QC): 2 Transfers (B, C, W/C) (FIM): 3 Toilet/Commode Transfer (FIM): 4 Toilet Transfer (QC): 3 Shower Transfer(FIM): 5 OT Short Term Goals Short Term Goals Transfers (B,C,W/C) (FIM): 4 1=Demonstrate adherence to instructed precautions during ADL tasks. 2=Patient will verbalize/demonstrate understanding of assistive devices/ modifications for ADL. 3=Patient will improve strength/tolerance for activity to enable patient to perform ADL's. OT Senior Care Goals Senior Care Goals Time Frame: Dec 17, 2017 Eating (FIM): 6 Eating (QC): 6 Groomin Oral Hygiene (QC): 5 Bathing(FIM): 5 Shower/Bathe Self (QC): 5 Toileting(FIM): 6 Toileting Hygiene (QC): 6 Transfers (B,C,W/C) (FIM): 6 Toilet/Commode Transfer(FIM): 6 Toilet/Commode Transfer (QC): 6 Pt. does not shower at home, and does not dress self. Therefore, these will not be goals to achieve in this setting. However, OT will assist pt. with spongebath and will provide dressing assist. Additional Goals: 1-Demonstrate ADL Tasks, 2-Verbalize Understanding, 3- ImproveStrength/Shamika 1=Demonstrate adherence to instructed precautions during ADL tasks. 2=Patient will verbalize/demonstrate understanding of assistive devices/ modifications for ADL. 3=Patient will improve strength/tolerance for activity to enable patient to perform ADL's. OT Education/Plan Discharge Recommendations Plan/Recommendations: Continue POC Treatment Plan/Plan of Care Patient would benefit from OT for education, treatment and training to promote independence in ADL's, mobility, safety and/or upper extremity function for ADL' s. Plan of Care: ADL Retraining, Functional Mobility, Group Exercise/Act as Ind, UE Funct Exercise/Act Treatment Duration: Dec 17, 2017 Frequency: At least 5 of 7 days/Wk (IRF) Estimated Hrs Per Day: 1.5 hours per day Agreement: Yes Rehab Potential: Fair Time/GCodes Start Time: 07:00 Stop Time: 08:30 Total Time Billed (hr/min): 90 Billed Treatment Time 1 visit-ADL 6 (90 min) ORA GLEASON Dec 07, 2017 08:55
--- NOTE | 2017-12-07 10:03 | Physical Therapy Daily Note ---
PT Daily Note-Current Subjective Pt. states she is feeling a little better , has some fluid off and therefore moving better somewhat. Discussed today the delicate balance of managing movement and activity with rest and joint protection Pain Numeric Pain Scale: 0-No Pain Mental Status Patient Orientation: Normal For Age Attachments: IV Transfers Functional [place] Measure 0=Not Assessed/NA 4=Minimal Assistance 1=Total Assistance 5=Supervision or Setup 2=Maximal Assistance 6=Modified [place] 3=Moderate Assistance 7=Complete IndependenceIRFPAI Quality Coding Scale 6 Independent with activity with or without an assistive device 5 Patient requires set up or clean up by helper. Patient completes activity by themselves 4 Supervision or touching assist (CGA). [place] provide cues , steadying assist 3 The helper provides less than half the effort to complete the activity 2 The helper provides more than half the effort to complete the activity 1 Dependent. The helper does all the effort to complete an activity 7 Patient refused to complete or attempt activity 9 The patient did not perform the activity before the current illness or injury 88 Not attempted due to Medical conditions or safety concerns Transfers (B, C, W/C) (FIM): 3 Scootin Rollin Supine to/from Sit: 3 (LEs in out bed and car) Sit to/from Stand: 3 (from low surface needs mod to min assist) Bed to/from Chair: 4 car TRF mod assist LEs in out bed Weight Bearing Right Lower Extremity: Right Full Weight Bearing Left Lower Extremity: Left Full Weight Bearing Gait Training Does the Patient Walk?: Yes Gait (FIM): 4 Distance (FIM): 3=150 ft (x3) Gait Level of Assist: 4 Gait Persons Needed: 1 Gait Assistive Device: Walker 4 Wheeled instruction for broader OANH as pt does cross overs at turns and also bumps large shoes in to each other Exercises Seated Therapy Exercises: Ankle pumps, Sit to stand, Long arc quads, Hip flexion, Hip abd/add Seated Reps: 12 NuStep Minutes: 12 NuStep Workload: 2 Treatments leg presses on Nustep x 12, says she likes the new step and it loosens her joints up Assessment Current Status: Good Progress less edema, better movement PT Short Term Goals Short Term Goals Time Frame: Dec 10, 2017 Transfers (B,C,W/C) (FIM): 4 Gait (FIM): 4 Gait Distance Comment: 150' Gait Level of Assist: 4 Gait Assistive Device: Walker 4 Wheeled PT Group Home Goals Group Home Goals PT Group Home Goals Time Frame: Dec 24, 2017 Transfers (B,C,W/C) (FIM): 5 Sit to Lying (QC): 4 Lying-Sitting on Side/Bed(QC): 4 Sit to Stand (QC): 4 Rollin Roll Left to Right (QC): 4 Chair/Adj-vb-Lsnpy Xfer(QC): 4 Car Transfer (QC): 4 Does the Patient Walk: Yes Gait (FIM): 5 Distance: 250' Walk 10 feet (QC): 4 Walk 10ft-Uneven Surface(QC): 4 Walk 50ft with 2 Turns (QC): 4 Walk 150 ft (QC): 4 Gait Level of Assist: 5 Gait Assistive Device: Walker 4 Wheeled Stairs (FIM): 2 # of Steps: 4 1 Step (curb) (QC): 4 4 Steps (QC): 4 Stairs Level Of Assist: 5 Picking up an Object (QC): 4 PT Plan Treatment/Plan Treatment Plan: Continue Plan of Care Treatment Plan: Bed Mobility, Concurrent Therapy, Education, Functional Activity Shamika, Functional Strength, Group Therapy, Gait, Safety, Therapeutic Exercise, Transfers Treatment Duration: Dec 24, 2017 Frequency: At least 5 of 7 days/Wk (IRF) Estimated Hrs Per Day: 1.5 hours per day Patient and/or Family Agrees t: Yes Safety Risks/Education Patient Education: Gait Training, Transfer Techniques, Correct Positioning, Disease Process, Safety Issues Teaching Recipient: Patient Teaching Methods: Demonstration, Discussion Response to Teaching: Verbalize Understanding, Return Demonstration, Reinforcement Needed Time/GCodes Time In: 900 Time Out: 1000 Total Billed Treatment Time: 60 Total Billed Treatment 1,FA30m,EX10m,GT20m G Codes Necessary: JULIANNE Inman PTA Dec 07, 2017 10:02
--- NOTE | 2017-12-07 12:00 | Physical Therapy Daily Note ---
PT Daily Note-Current Subjective Pt. in bed states she is preparing for lunch, sits up in bed to eat. Pain Numeric Pain Scale: 5-Moderate Pain Location: Medial Location Body Site: Back (upper back between and including shoulders) Mental Status Attachments: [place] Catheter, IV Transfers Functional [place] Measure 0=Not Assessed/NA 4=Minimal Assistance 1=Total Assistance 5=Supervision or Setup 2=Maximal Assistance 6=Modified [place] 3=Moderate Assistance 7=Complete IndependenceIRFPAI Quality Coding Scale 6 Independent with activity with or without an assistive device 5 Patient requires set up or clean up by helper. Patient completes activity by themselves 4 Supervision or touching assist (CGA). [place] provide cues , steadying assist 3 The helper provides less than half the effort to complete the activity 2 The helper provides more than half the effort to complete the activity 1 Dependent. The helper does all the effort to complete an activity 7 Patient refused to complete or attempt activity 9 The patient did not perform the activity before the current illness or injury 88 Not attempted due to Medical conditions or safety concerns partial rolling left and right SBA Weight Bearing Right Lower Extremity: Right Full Weight Bearing Left Lower Extremity: Left Full Weight Bearing Exercises Supine Ex: Ankle pumps, Quad Set, Rolling, Glut sets, Heel Slides, Short Arc Quads, Scooting, Straight leg raise (x3 x2), Hip abd/add Supine Reps: 15 Assessment Current Status: Good Progress less pain and edema, increased funct mob PT Short Term Goals Short Term Goals Time Frame: Dec 10, 2017 Transfers (B,C,W/C) (FIM): 4 Gait (FIM): 4 Gait Distance Comment: 150' Gait Level of Assist: 4 Gait Assistive Device: Walker 4 Wheeled PT Alf Goals Alf Goals PT Thermal Cutting Machine Operator Goals Time Frame: Dec 24, 2017 Transfers (B,C,W/C) (FIM): 5 Sit to Lying (QC): 4 Lying-Sitting on Side/Bed(QC): 4 Sit to Stand (QC): 4 Rollin Roll Left to Right (QC): 4 Chair/Kzd-yp-Cyrpr Xfer(QC): 4 Car Transfer (QC): 4 Does the Patient Walk: Yes Gait (FIM): 5 Distance: 250' Walk 10 feet (QC): 4 Walk 10ft-Uneven Surface(QC): 4 Walk 50ft with 2 Turns (QC): 4 Walk 150 ft (QC): 4 Gait Level of Assist: 5 Gait Assistive Device: Walker 4 Wheeled Stairs (FIM): 2 # of Steps: 4 1 Step (curb) (QC): 4 4 Steps (QC): 4 Stairs Level Of Assist: 5 Picking up an Object (QC): 4 PT Plan Treatment/Plan Treatment Plan: Continue Plan of Care Treatment Plan: Bed Mobility, Concurrent Therapy, Education, Functional Activity Shamika, Functional Strength, Group Therapy, Gait, Safety, Therapeutic Exercise, Transfers Treatment Duration: Dec 24, 2017 Frequency: At least 5 of 7 days/Wk (IRF) Estimated Hrs Per Day: 1.5 hours per day Patient and/or Family Agrees t: Yes Safety Risks/Education Patient Education: Correct Positioning, Safety Issues Time/GCodes Time In: 1130 Time Out: 1200 Total Billed Treatment Time: 30 Total Billed Treatment 1,EX30m G Codes Necessary: JULIANNE Inman ONLINE BANKING SPECIALIST Dec 07, 2017 12:00
--- NOTE | 2017-12-07 15:31 | ST Cognitive Linguistic Eval ---
Speech Evaluation-General Medical Diagnosis lymphedema Onset Date: Dec 02, 2017 Therapy Diagnosis Therapy Diagnosis: Cognition Precautions Precautions/Isolations: Fall Prevention, Standard Precautions, Pressure Ulcer Referral Referring Physician: Dr. Rouse Reason for Referral: Evaluation/Treatment Medical History Pertinent Medical History: Arthritis, GERD, HTN, Neuropathy, OA, Rheumatoid Arthritis, Smoking Reviewed History: Yes Social History Current Living Status: Children Speech PLF-Current Status Prior Level of Function Pt lives the basement of one of her children. Requires some assistance. Subjective Pt in bed upon arrival. Pleasant and cooperative. Pain Numeric Pain Scale: 0-No Pain Language Eval: Auditory Comprehends Simple Yes/No Ques: Functional Follows 1-Step Commands: Functional Follows Complex Directions: Functional Follows General Conversations: Functional Language Eval: Verbal Language Completes Spontaneous Greeting: Functional Produces Auto, Serial Info: Functional Imitates Simple Words/Phrases: Functional Word Finding: Functional Requests Basic Needs: Functional States Basic Personal Info: Functional Expresses Complex Ideas: Functional Language Evaluation: Reading NT Cognitive Patient Orientation Pt oriented x3 Objective Cognitive Domain Attention: WNL Memory: WNL Problem Solving: Functional Objective Results [facility] Cognitive-Communication Assessment was administered to evaluate cognitive functioning. Results are as follows: Memory - 3 word recall was 3/3 correct for immediate; delayed and remote delay. Organization - Pt was 4/4 correct. Problem Solving - Simple was 4/4 correct. Abstract/complex was 1/2 correct and Comparisons was 4.5/5 correct. Speech/language WNL Oral Motor/Speech Production WNL Impression Functional cognitive-linguistic skills. Communication/Social Cognition Comprehension: 7 Expression: 7 Social Interaction: 7 Problem Solvin Memory: 7 Speech Patient Assess Expression of Ideas/Wants: Expression (4) Understanding Verbal Content: Understands (4) Brief Interview-Mental Status: Yes Repetition of Three Words: Three (3) Temporal Orientation: Year: Correct (3) Temporal Orientation: Month: Accurate within 5 days(2) Temporal Orientation: Day: Correct (1) Recall : Wear to say "Sock": Yes, no cue required (2) Recall : Color: Yes, no cue required (2) Recall : Bed: Yes, no cue required (2) Speech Short Term Goals Short Term Goals Short Term Goals no STGs established as skilled ST not indicated. Speech Chcf Goals Interior Design Project Manager Goals no LTGs established as skilled ST not indicated. Speech-Plan Patient/Family Goals Patient/Family Goals: to return to her living residence. Treatment Plan Speech Therapy Treatment Plan: Discontinue ST Skilled ST not indicated. Frequency: Modified Program (IRF) (0) Estimated Hrs Per Day: Other (0) Rehab Potential: Good Pt/Family Agrees to Plan: Yes Safety Risks/Education Teaching Recipient: Patient Teaching Methods: Discussion Response to Teaching: Verbalize Understanding Time Speech Therapy Time In: 09:00 Speech Therapy Time Out: 09:20 Total Billed Time: 20 Billed Treatment Time 1, [id number] Valentin Dec 07, 2017 15:31
[2017-12-07] MEDS: ASCORBIC ACID (VIT C) 500 MG TABLET PO SCH (17:22)
[2017-12-07 17:33] VITALS: BP 128/87
--- NOTE | 2017-12-07 19:09 | Progress Note (SOAP) ---
Subjective Date Seen by a Provider: Dec 07, 2017 Time Seen by a Provider: 19:08 Subjective/Events-last exam Patient has swelling all over body. Patient has lymphedema. Patient has osteoarthritis. Patient stated 2 months ago she had atrial fib heart sounds irregular at times. Weakness. Arthritis. 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 Hypertension. Anemia Objective Exam Vital Signs Date Time Temp Pulse Resp B/P (MAP) Pulse Ox O2 Delivery O2 Flow Rate FiO2 12/07/17 17:33 96.7 78 16 128/87 (101) 96 Room Air 12/07/17 08:00 Room Air 12/07/17 05:43 97.9 98 20 150/86 (107) 95 Room Air 12/06/17 21:00 Room Air I & O 12/07/17 06:59 Intake Total 1390 ml Output Total 5425 ml Balance -4035 ml Capillary Refill : General Appearance: No Apparent Distress, WD/WN HEENT: Normal ENT Inspection Neck: Normal Inspection Respiratory: No Accessory Muscle Use, No Respiratory Distress Cardiovascular: Irregularly Irregular Gastrointestinal: soft Results Lab Laboratory Tests 12/07/17 05:30 Laboratory Tests 12/07/17 05:30: White Blood Count 8.4, Red Blood Count 4.03L, Hemoglobin 13.4#, Hematocrit 41, Mean Corpuscular Volume 101H, Mean Corpuscular Hemoglobin 33, Mean Corpuscular Hemoglobin Concent 33, Red Cell Distribution Width 12.4, Platelet Count 292, Mean Platelet Volume 9.0, Sodium Level 139, Potassium Level 3.7, Chloride Level 96L, Carbon Dioxide Level 29, Anion Gap 14, Blood Urea Nitrogen 24H, Creatinine 0.71, Estimat Glomerular Filtration Rate > 60, BUN/Creatinine Ratio 34, Glucose Level 113H, Calcium Level 8.8, Magnesium Level 2.0 Assessment/Plan Assessment/Plan Assess & Plan/Chief Complaint Lymphedema. Weakness. Arthritis. 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 Hypertension. Recent onset of atrial fibrillation Clinical Quality Measures DVT/VTE Risk/Contraindication: Risk Factor Score Per Nursin RFS Level Per Nursing on Admit: 4+=Very High Contraindications-Pharm: Other *list below* Other: HX OF INTRAARTICULAR HEMARTHROSIS WITH LAST LOVENOX INJECTIONS LIT COLLINS DO Dec 07, 2017 19:09
[2017-12-07] MEDS: predniSONE 5 MG TAB PO SCH (20:47)
--- NOTE | 2017-12-07 20:49 | Individualized Plan of Care ---
Individualized Plan of Care Rehab Nursing IPOC Order Admission Date Dec 03, 2017 at 09:04 Current Orders Orders Admission Order(Inpt,Obs,Sdc) (12/03/17 09:19) Managed Care Manager-Inpt Rehab Con (12/03/17 09:19) Rehab Nursing Orders-Ipoc (12/03/17 09:19) Physical Therapy Rehab Orders (12/03/17 09:19) Occupational Therapy Rehab Ord (12/03/17 09:19) Cbc No Diff (12/03/17 09:19) Comprehensive Metabolic Panel (12/03/17 09:19) General/Regular (12/03/17 Lunch) Intake & Output 06,14,22 (12/03/17 09:19) Weight Bearing Status (12/03/17:19) Rehab-Intensity Of Therapy (12/03/17 09:19) Code/Resuscitation (12/03/17 09:19) Initiate Admission Nursing Pro .admission (12/03/17 09:19) D5w 100 Ml Ivpb (De... W/Furosemide Inj (12/03/17 09:30) Cbc No Diff (12/04/17 05:00) Comprehensive Metabolic Panel (12/04/17 05:00) Magnesium (12/03/17 09:19) Vitamin D 25-Hydroxy (12/03/17 09:19) Catheter(Uri) To Dependent Mee (12/03/17 09:19) Request Ot Additional Orders (12/03/17 09:31) Us Venous Lower Ext Rowdy (12/03/17 09:19) Venous Access Request Order (12/03/17 12:02) Patient Visit (12/03/17 ) Pt Eval Moderate Complexity (12/03/17 ) Exercise Therap, Ea 15 Min (12/03/17 ) Functional Activities, Ea 15 (12/03/17 ) Sodium Chloride Flush (Catheter Flush Sy (12/03/17 15:15) Sodium Chloride Flush (Catheter Flush Sy (12/03/17 22:00) Patient Visit (12/03/17 ) Gait Training, Ea 15 Min (12/03/17 ) Pantoprazole Tablet (Protonix Tablet) (12/04/17 07:00) Prednisone Tablet (Deltasone Tablet) (12/04/17 01:30) (Nf) Ascorbate Calcium (Vitamin C) (12/03/17 21:00) (Nf) Calcium Carbonate/Vitamin D3 (Calci (12/03/17 21:00) (Nf) Cholecalciferol (Vitamin D3) (Vitam (12/03/17 21:00) (Nf) Diltiazem Hcl (Diltiazem 24hr Er) (12/04/17 09:00) (Nf) Oxycodone Hcl (12/03/17 17:00) (Nf) Polyethylene Glycol 3350 (Smoothlax (12/03/17 21:00) Ascorbic Acid Tablet (Vitamin C Tablet) (12/03/17 17:00) Polyethylene Glycol Powder Pkt (Miralax (12/03/17 21:00) Diltiazem Cd 24 Hr Capsule (Cardizem Cd (12/04/17 09:00) Cholecalciferol Capsule/Tablet (Vitamin (12/03/17 21:00) Calcium Carbonate W/Vitamin D3 (Calcarb (12/03/17 17:00) Fentanyl Patch (Duragesic Patch) (12/05/17 09:00) Patch Removal (Patch Removal) (12/05/17 08:59) Fentanyl Patch (Duragesic Patch) (12/04/17 09:00) Patch Removal (Patch Removal) (12/04/17 08:59) Oxycodone Immediate Rel Tablet (Oxyir Ta (12/03/17 17:00) Potassium Chloride (Tablet) (Klor Con Ta (12/04/17 01:30) Pharmacy Consult/Message (12/03/17 17:46) Povidone Iodine 10% Ointment (Betadine (12/03/17 21:00) Silver Sulfadiazine 400 Gm (Ssd 1% 400 G (12/03/17 21:00) Oxycodone Immediate Rel Tablet (Oxyir Ta (12/03/17 17:00) Povidone Iodine 10% Solution (Betadine (12/03/17 21:00) Ambulate 08,12,20 (12/03/17 20:00) Dvt/Vte Risk - Notifiy Physici 08 (12/03/17 20:00) Potassium Chloride (Tablet) (Klor Con Ta (12/03/17 20:41) Prednisone Tablet (Deltasone Tablet) (12/03/17 20:41) Potassium Chloride (Tablet) (Klor Con Ta (12/04/17 09:00) Prednisone Tablet (Deltasone Tablet) (12/04/17 21:00) Amb Us Guide Vascular Access (12/03/17 ) Influenza Quad (5+Yoa) 2018- (Afluria (12/04/17 07:15) Potassium Chloride (Tablet) (Klor Con Ta (12/04/17 13:00) Ergocalciferol Capsule (Vitamin D2 Capsu (12/04/17 10:15) Potassium Cl 10meq/50ml Ivpb (Kcl 10 Meq (12/04/17 10:15) Cbc No Diff (12/05/17 05:00) Cbc No Diff (12/07/17 05:00) Cbc No Diff (12/09/17 05:00) Basic Metabolic Panel (12/05/17 05:00) Basic Metabolic Panel (12/07/17 05:00) Basic Metabolic Panel (12/09/17 05:00) Magnesium (12/05/17 05:00) Magnesium (12/07/17 05:00) Magnesium (12/09/17 05:00) Magnesium Oxide Tablet (Mag Ox Tablet) (12/04/17 10:42) Diclofenac 1% Gel (Voltaren 1% Gel) (12/04/17 13:00) Nursing Communication (Order) (12/04/17 10:02) Intake & Output-Accurate (Orde (12/04/17 10:02) Vte Contraindication (12/04/17 10:34) Vte Contraindication (12/04/17 10:37) Prednisone Tablet (Deltasone Tablet) (12/04/17 11:00) Venous Access Request Order (12/04/17 11:55) Picc Cap(S) Change .Q3days (12/04/17 11:55) Picc Dressing/Securement Devic Q7D (12/04/17 11:55) Picc Line Evaluation .on order (12/04/17 11:55) Picc Maintain .prn (12/04/17 11:55) Ondansetron Injection (Zofran Injectio (12/04/17 12:00) Patient Visit (12/04/17 ) Functional Activities, Ea 15 (12/04/17 ) Exercise Therap, Ea 15 Min (12/04/17 ) Gait Training, Ea 15 Min (12/04/17 ) Potassium Cl 10meq/50ml Ivpb (Kcl 10 Meq (12/04/17 16:23) Patient Visit (12/05/17 ) Gait Training, Ea 15 Min (12/05/17 ) Potassium Cl 10meq/50ml Ivpb (Kcl 10 Meq (12/05/17 12:45) Magnesium 1 Gm/100 Ml Ivpb (Magnesium [place] (12/05/17 12:45) [place] Pass (12/06/17 12:40) Amb Us Guide Vascular Access (12/04/17 ) Request For Cognitive Services (12/07/17 09:11) Patient Visit (12/07/17 ) Exercise Therap, Ea 15 Min (12/07/17 ) Gait Training, Ea 15 Min (12/07/17 ) Functional Activities, Ea 15 (12/07/17 ) Ekg Tracing (12/07/17 19:10) Rehab Nursing Orders: Fall Prevention, Medication Management & Education Intensity of Therapy to be met Patient to be seen: Min.3h per day/5 of 7d PT IPOC Problem List: Activity Tolerance, Functional Strength, Safety, Balance, Gait, Transfer, Bed Mobility, ROM Treatment Plan: Continue Plan of Care Bed Mobility, Concurrent Therapy, Education, Functional Activity Shamika, Functional Strength, Group Therapy, Gait, Safety, Therapeutic Exercise, Transfers Treatment Duration: Dec 24, 2017 Frequency: At least 5 of 7 days/Wk (IRF) Estimated Hrs Per Day: 1.5 hours per day OT IPOC Problems: Decreased Activ Tolerance, Decreased UE Strength, Dependent Transfers , Edema, Impaired Bed Mobility, Impaired Coordination, Impaired Funct Balance, Impaired I ADL's, Impaired Self-Care Skills, Restricted Funct UE ROM OT Treatment, Training and Edu: Yes Plan of Care: ADL Retraining, Functional Mobility, Group Exercise/Act as Ind, UE Funct Exercise/Act Treatment Duration: Dec 17, 2017 Frequency: At least 5 of 7 days/Wk (IRF) Estimated Hrs Per Day: 1.[address] IPOC Speech Therapy Treatment Plan: Discontinue ST Treatment Duration: Dec 07, 2017 Frequency: 1 time per week Estimated Hrs Per Day: Other Managed Care Manager/Case Mgmt Managed Care Manager/Case Managemen: Discharge Planning, Patient/Family Counseling Dietitian/Applied Anthropologist Dietitian/Applied Anthropologist to monitor nutritional status and make changes and/or recommendations as needed and work with speech pathology on dietary upgrades as the occur. Physician IPOC Medical Issues being managed closely and that require the 24 hour availability of a physician:Arthritic pain peripheral edema Chronic pain Hypokalemia Medical Issues: DVT Prophylaxis, Falls Precautions, Fluid/Electrolyte/ Nutrition Balance, Infection Protection, Pain Management, Other (List) (as per above) Brief Synthesis of Preadmission Screen, Post-Admission Evaluation, and Therapy Evaluations:82 yo female who had been Modified Independent but with a general decline due to chronic arthritic pain associated with worsening peripheral edema.Admitted from home for medical management of fluid overload associated with acute inpatient therapies to restore functional [facility] Prognosis: Good Anticipated Length of Stay: 12-24- Modified Independent for adls and mobility skills Anticipated d/c Destination: Home with BERE ALFARO MD Dec 07, 2017 20:49
[2017-12-07] MEDS: POLYETHYLENE GLYCOL 17 GM (MIRALAX) PACK PO SCH (20:58)
[2017-12-07] MEDS: POVIDONE (BETADINE) 10% SOLN 240 ML BTL TOP SCH (20:58)
[2017-12-07] MEDS: SILVER SULFADIAZINE 400 GM CREAM TOP SCH (21:00)
[2017-12-08 05:35] VITALS: BP 135/90
[2017-12-08] MEDS: CATHETER FLUSH 10 ML SYR IV SCH ×3 (06:02→20:41)
[2017-12-08] MEDS: CALCIUM CARB + VIT D 600 MG (CALCARB + D) TAB PO SCH ×2 (06:03→17:33)
[2017-12-08] MEDS: PANTOPRAZOLE 40 MG (PROTONIX) TAB PO SCH (06:04)
--- NOTE | 2017-12-08 07:43 | Progress Note (SOAP) ---
Subjective Time Seen by a Provider: 07:40 Subjective/Events-last exam Patient feeling better today. Patient lost another 9 pounds. Patient atrial fib Objective Exam Vital Signs Date Time Temp Pulse Resp B/P (MAP) Pulse Ox O2 Delivery O2 Flow Rate FiO2 12/08/17 05:35 97.6 86 20 135/90 (105) 97 Room Air 12/07/17 17:33 96.7 78 16 128/87 (101) 96 Room Air 12/07/17 08:00 Room Air I & O 12/08/17 07:00 Intake Total 1370 ml Output Total 6050 ml Balance -4680 ml Capillary Refill : General Appearance: No Apparent Distress, WD/WN HEENT: Normal ENT Inspection Neck: Normal Inspection Respiratory: Lungs Clear, No Accessory Muscle Use, No Respiratory Distress Cardiovascular: Irregularly Irregular Assessment/Plan Assessment/Plan Assess & Plan/Chief Complaint Lymphedema. Weakness. Arthritis. 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 Hypertension. Recent onset of atrial fibrillation. . 12/08/17. Lymphedema. Weakness. Arthritis. Inflammatory arthritis shoulder and hands. Atrial fibrillation Clinical Quality Measures DVT/VTE Risk/Contraindication: Risk Factor Score Per Nursin RFS Level Per Nursing on Admit: 4+=Very High Contraindications-Pharm: Other *list below* Other: HX OF INTRAARTICULAR HEMARTHROSIS WITH LAST LOVENOX INJECTIONS LIT COLLINS DO Dec 08, 2017 07:43
[2017-12-08] MEDS: KCL 10 MEQ TAB (MICRO K) PO SCH ×3 (09:17→20:40)
[2017-12-08] MEDS: DILTIAZEM 180 MG (CARDIZEM CD) CAP PO SCH (09:18)
[2017-12-08] MEDS: VITAMIN D3 1,000 UNITS (CHOLECALCIFEROL) TABLET PO SCH ×2 (09:18→20:40)
[2017-12-08] MEDS: DICLOFENAC 1% GEL 100 GM (VOLTAREN) TUBE TOP SCH ×4 (09:23→20:41)
[2017-12-08] MEDS: fentaNYL PATCH 25 MCG (DURAGESIC) TD SCH (09:41)
[2017-12-08] MEDS: FENTANYL 25 MCG PATCH REMOVAL TP SCH (09:41)
--- NOTE | 2017-12-08 10:43 | Physical Therapy Daily Note ---
PT Daily Note-Current Subjective Pt toileting upon arrival. Pt agrees to PT. CAUSTIC PUMP OPERATOR assists pt with donning abdominal brace, pericare & donning undergarment & pants. Pain Location: No Pain Reported Mental Status Patient Orientation: Person, Place, Time, Situation Attachments: Other-See Comments (Abdominal brace, Brace for RUE & Cervical Collar) Transfers Functional [place] Measure 0=Not Assessed/NA 4=Minimal Assistance 1=Total Assistance 5=Supervision or Setup 2=Maximal Assistance 6=Modified [place] 3=Moderate Assistance 7=Complete IndependenceIRFPAI Quality Coding Scale 6 Independent with activity with or without an assistive device 5 Patient requires set up or clean up by helper. Patient completes activity by themselves 4 Supervision or touching assist (CGA). [place] provide cues , steadying assist 3 The helper provides less than half the effort to complete the activity 2 The helper provides more than half the effort to complete the activity 1 Dependent. The helper does all the effort to complete an activity 7 Patient refused to complete or attempt activity 9 The patient did not perform the activity before the current illness or injury 88 Not attempted due to Medical conditions or safety concerns Scootin Rollin Supine to/from Sit: 4 Sit to/from Stand: 4 Sit to Lying (QC): 4 Sit to Stand (QC): 4 Weight Bearing Right Lower Extremity: Right Full Weight Bearing Left Lower Extremity: Left Full Weight Bearing Gait Training Does the Patient Walk?: Yes Distance (FIM): 0=427-44 ft Distance: 60' Walk 10 feet (QC): 4 Walk 50 ft with 2 Turns(QC): 4 Gait Level of Assist: 4 Gait Persons Needed: 1 Gait Assistive Device: Walker 4 Wheeled Pt reports diziness with Standing & ambulating. Blood Sugar is checked at pt request & is 84. Wheelchair Training Does the Pt Use a Wheelchair?: No Exercises Seated Therapy Exercises: Ankle pumps, Long arc quads, Hip flexion, Kicking activity Seated Reps: 20 Treatments CAUSTIC PUMP OPERATOR assists pt with donning ab brace, pericare & donning undergarment & pants while pt stands. Pt ambulates to EOB to rest due to fatigue & dizziness. Pt lays Supine due to feeling uncomfortable and Nurse to apply pain patch, restart IV & give pain meds. Pt then transfers to EOB then to Standing using 4WW at CGA. Pt is dizzy upon standing. Pt ambulates short distance to [facility] and rest in chair. Blood Sugar is checked and found to be 84. Pt completes Seated Ex before returning to room to rest. Pt declines sitting in recliner due to uncomfortable so returns to Supine in bed. Pt has all needs met. Assessment Current Status: Fair Progress Pt is not motivated to push self and believes she is weaker than pt appears to be. Pt is having trouble with dizziness during tx so SOLUTIONS OPERATOR will monitor BP. PT Short Term Goals Short Term Goals Time Frame: Dec 10, 2017 Transfers (B,C,W/C) (FIM): 4 Gait (FIM): 4 Gait Distance Comment: 150' Gait Level of Assist: 4 Gait Assistive Device: Walker 4 Wheeled PT Senior Care Goals Administrative Asst Goals PT Administrative Asst Goals Time Frame: Dec 24, 2017 Transfers (B,C,W/C) (FIM): 5 Sit to Lying (QC): 4 Lying-Sitting on Side/Bed(QC): 4 Sit to Stand (QC): 4 Rollin Roll Left to Right (QC): 4 Chair/Tmm-jc-Ztelr Xfer(QC): 4 Car Transfer (QC): 4 Does the Patient Walk: Yes Gait (FIM): 5 Distance: 250' Walk 10 feet (QC): 4 Walk 10ft-Uneven Surface(QC): 4 Walk 50ft with 2 Turns (QC): 4 Walk 150 ft (QC): 4 Gait Level of Assist: 5 Gait Assistive Device: Walker 4 Wheeled Stairs (FIM): 2 # of Steps: 4 1 Step (curb) (QC): 4 4 Steps (QC): 4 Stairs Level Of Assist: 5 Picking up an Object (QC): 4 PT Plan Problem List Problem List: Activity Tolerance, Functional Strength, Safety, Balance, Gait, Transfer Treatment/Plan Treatment Plan: Continue Plan of Care Treatment Plan: Bed Mobility, Concurrent Therapy, Education, Functional Activity Shamika, Functional Strength, Group Therapy, Gait, Safety, Therapeutic Exercise, Transfers Treatment Duration: Dec 24, 2017 Frequency: At least 5 of 7 days/Wk (IRF) Estimated Hrs Per Day: 1.5 hours per day Patient and/or Family Agrees t: Yes Safety Risks/Education Patient Education: Gait Training, Transfer Techniques, Correct Positioning, Safety Issues Teaching Recipient: Patient Teaching Methods: Discussion Response to Teaching: Verbalize Understanding Time/GCodes Time In: 930 Time Out: 1030 Total Billed Treatment Time: 60 Total Billed Treatment 1, Fa x2 (30m), GT (15m) & EX (15m) G Codes Necessary: DANDRE Valdez CAUSTIC PUMP OPERATOR Dec 08, 2017 10:43
[2017-12-08] MEDS: FUROSEMIDE INJECTION 120 MG in D5W 100 ML IVPB 108 ML IV SCH (11:30)
--- NOTE | 2017-12-08 11:50 | Occupational Ther Daily Note ---
OT Current Status-Daily Note Subjective Pt in bed, agrees to therapy. Pt reports pain in neck and shoulders, but does not rate. Mental Status/Objective Functional [place] Measure 0=Not Assessed/NA 4=Minimal Assistance 1=Total Assistance 5=Supervision or Setup 2=Maximal Assistance 6=Modified [place] 3=Moderate Assistance 7=Complete [place] Attachments: Bradford Catheter, IV ADL-Treatment Pt states she had a shower yesterday, but would like to sponge bathe and change clothes. Supine to sit with moderate assistance. Pt sat EOB without LOB during ADLs. Assist required to doff shirt and pants. Pt washed forearms, chest and abdomen, but required assist to wash upper arms and shoulders. Pt declined to wash christin area or buttocks or change underwear. States they are clean. Pt required assist to thread bilateral UE into bra and to hook in back. Assist to initiate bilateral UE into sleeves of shirt. Pt attempts to assist pulling sleeves up over arms, but requires assist to ice puller head and pull down in back. Bilateral LE wraps were changed using 4 wraps on each leg. Max assist required to don pants. Total assist to don socks. Sit to stand with CGA. Gait to restroom with 4WW, assist for IV pole. Transfer to [facility] [place] with SBA. Pt sitting on toilet with call light in reach after session. Functional [place] Measure 0=Not Assessed/NA 4=Minimal Assistance 1=Total Assistance 5=Supervision or Setup 2=Maximal Assistance 6=Modified [place] 3=Moderate Assistance 7=Complete IndependenceIRFPAI Quality Coding Scale 6 Independent with activity with or without an assistive device 5 Patient requires set up or clean up by helper. Patient completes activity by themselves 4 Supervision or touching assist (CGA). [place] provide cues , steadying assist 3 The helper provides less than half the effort to complete the activity 2 The helper provides more than half the effort to complete the activity 1 Dependent. The helper does all the effort to complete an activity 7 Patient refused to complete or attempt activity 9 The patient did not perform the activity before the current illness or injury 88 Not attempted due to Medical conditions or safety concerns Upper Body (FIM): 2 Upper Body Dressing (QC): 2 Lower Body Dressing (FIM): 2 Lower Body Dressing (QC): 2 On/Off Footwear (QC): 1 OT Short Term Goals Short Term Goals Transfers (B,C,W/C) (FIM): 4 1=Demonstrate adherence to instructed precautions during ADL tasks. 2=Patient will verbalize/demonstrate understanding of assistive devices/ modifications for ADL. 3=Patient will improve strength/tolerance for activity to enable patient to perform ADL's. OT Finish Repair Worker Goals Finish Repair Worker Goals Time Frame: Dec 17, 2017 Eating (FIM): 6 Eating (QC): 6 Groomin Oral Hygiene (QC): 5 Bathing(FIM): 5 Shower/Bathe Self (QC): 5 Toileting(FIM): 6 Toileting Hygiene (QC): 6 Transfers (B,C,W/C) (FIM): 6 Toilet/Commode Transfer(FIM): 6 Toilet/Commode Transfer (QC): 6 Pt. does not shower at home, and does not dress self. Therefore, these will not be goals to achieve in this setting. However, OT will assist pt. with spongebath and will provide dressing assist. Additional Goals: 1-Demonstrate ADL Tasks, 2-Verbalize Understanding, 3- ImproveStrength/Shamika 1=Demonstrate adherence to instructed precautions during ADL tasks. 2=Patient will verbalize/demonstrate understanding of assistive devices/ modifications for ADL. 3=Patient will improve strength/tolerance for activity to enable patient to perform ADL's. OT Education/Plan Discharge Recommendations Plan/Recommendations: Continue POC Treatment Plan/Plan of Care Patient would benefit from OT for education, treatment and training to promote independence in ADL's, mobility, safety and/or upper extremity function for ADL' s. Plan of Care: ADL Retraining, Functional Mobility, Group Exercise/Act as Ind, UE Funct Exercise/Act Treatment Duration: Dec 17, 2017 Frequency: At least 5 of 7 days/Wk (IRF) Estimated Hrs Per Day: 1.5 hours per day Agreement: Yes Rehab Potential: Good Time/GCodes Start Time: 08:00 Stop Time: 09:30 Total Time Billed (hr/min): 90 Billed Treatment Time 1 visit, ADLx6(90minutes) SU GOMEZ OT Dec 08, 2017 11:50
--- NOTE | 2017-12-08 13:44 | Physical Therapy Daily Note ---
PT Daily Note-Current Subjective Pt sitting up in bed upon arrival. Pt agrees to PT. Pain Numeric Pain Scale: 1 Location: Right Location Body Site: Shoulder Pain Description: Ache Mental Status Patient Orientation: Person, Place, Time, Situation Attachments: Bradford Catheter, IV Transfers Functional [place] Measure 0=Not Assessed/NA 4=Minimal Assistance 1=Total Assistance 5=Supervision or Setup 2=Maximal Assistance 6=Modified [place] 3=Moderate Assistance 7=Complete IndependenceIRFPAI Quality Coding Scale 6 Independent with activity with or without an assistive device 5 Patient requires set up or clean up by helper. Patient completes activity by themselves 4 Supervision or touching assist (CGA). [place] provide cues , steadying assist 3 The helper provides less than half the effort to complete the activity 2 The helper provides more than half the effort to complete the activity 1 Dependent. The helper does all the effort to complete an activity 7 Patient refused to complete or attempt activity 9 The patient did not perform the activity before the current illness or injury 88 Not attempted due to Medical conditions or safety concerns Scootin Supine to/from Sit: 5 Sit to/from Stand: 5 Sit to Stand (QC): 5 Pt able to stand from Seated surface if surface can be raised to level of 4WW. Pt is able to lift BLE into bed if bed is lower, otherwise she is CGA-Min A. Weight Bearing Right Lower Extremity: Right Full Weight Bearing Left Lower Extremity: Left Full Weight Bearing Gait Training Does the Patient Walk?: Yes Distance (FIM): 3=150 ft Distance: 150' Walk 10 feet (QC): 5 Walk 50 ft with 2 Turns(QC): 5 Walk 150 ft (QC): 5 Gait Level of Assist: 5 Gait Persons Needed: 1 Gait Assistive Device: Walker 4 Wheeled Pt has slow jack but steady, no LOB or dizziness this afternoon. Wheelchair Training Does the Pt Use a Wheelchair?: No Exercises Seated Therapy Exercises: Ankle pumps, Sit to stand (10), Long arc quads, Hip flexion, Kicking activity Treatments Pt transfers from Supine in bed to EOB to Standing using 4WW at SBA. Pt ambulates in hallway to Therapy [facility]. Pt completes Seated Ex on EOM. Pt then returns to room to rest supine in bed. ZIPPER SETTER assists pt position as pt requests. Pt has all needs met. Assessment Current Status: Good Progress Pt is improving with strength & activity tolerance due to increase of fluid removal (pt has lost approx. 20# fluid over last couple of days). PT Short Term Goals Short Term Goals Time Frame: Dec 10, 2017 Transfers (B,C,W/C) (FIM): 4 Gait (FIM): 4 Gait Distance Comment: 150' Gait Level of Assist: 4 Gait Assistive Device: Walker 4 Wheeled PT Longterm Goals Longterm Goals PT Django Developer Goals Time Frame: Dec 24, 2017 Transfers (B,C,W/C) (FIM): 5 Sit to Lying (QC): 4 Lying-Sitting on Side/Bed(QC): 4 Sit to Stand (QC): 4 Rollin Roll Left to Right (QC): 4 Chair/Evx-ui-Nfujw Xfer(QC): 4 Car Transfer (QC): 4 Does the Patient Walk: Yes Gait (FIM): 5 Distance: 250' Walk 10 feet (QC): 4 Walk 10ft-Uneven Surface(QC): 4 Walk 50ft with 2 Turns (QC): 4 Walk 150 ft (QC): 4 Gait Level of Assist: 5 Gait Assistive Device: Walker 4 Wheeled Stairs (FIM): 2 # of Steps: 4 1 Step (curb) (QC): 4 4 Steps (QC): 4 Stairs Level Of Assist: 5 Picking up an Object (QC): 4 PT Plan Problem List Problem List: Activity Tolerance, Functional Strength, Safety, Gait, Transfer Treatment/Plan Treatment Plan: Continue Plan of Care Treatment Plan: Bed Mobility, Concurrent Therapy, Education, Functional Activity Shamika, Functional Strength, Group Therapy, Gait, Safety, Therapeutic Exercise, Transfers Treatment Duration: Dec 24, 2017 Frequency: At least 5 of 7 days/Wk (IRF) Estimated Hrs Per Day: 1.5 hours per day Patient and/or Family Agrees t: Yes Safety Risks/Education Patient Education: Gait Training, Transfer Techniques, Correct Positioning, Safety Issues Teaching Recipient: Patient Teaching Methods: Discussion Response to Teaching: Verbalize Understanding Time/GCodes Time In: 1300 Time Out: 1330 Total Billed Treatment Time: 30 Total Billed Treatment 1, GT (15m) & EX (15m) G Codes Necessary: DANDRE Valdez ZIPPER SETTER Dec 08, 2017 13:44
[2017-12-08 16:24] VITALS: BP 144/84
[2017-12-08] MEDS: ASCORBIC ACID (VIT C) 500 MG TABLET PO SCH (17:33)
[2017-12-08] MEDS: POLYETHYLENE GLYCOL 17 GM (MIRALAX) PACK PO SCH (20:39)
[2017-12-08] MEDS: predniSONE 5 MG TAB PO SCH (20:40)
[2017-12-08] MEDS: SILVER SULFADIAZINE 400 GM CREAM TOP SCH (20:45)
[2017-12-08] MEDS: POVIDONE (BETADINE) 10% SOLN 240 ML BTL TOP SCH (20:45)
[2017-12-09] MEDS: FUROSEMIDE INJECTION 120 MG in D5W 100 ML IVPB 108 ML IV SCH ×2 (03:01→19:30)
[2017-12-09 04:40] VITALS: BP 116/75
[2017-12-09] MEDS: CATHETER FLUSH 10 ML SYR IV SCH ×3 (05:23→20:08)
[2017-12-09] MEDS: CALCIUM CARB + VIT D 600 MG (CALCARB + D) TAB PO SCH ×3 (06:28→16:52)
[2017-12-09] MEDS: PANTOPRAZOLE 40 MG (PROTONIX) TAB PO SCH (06:29)
[2017-12-09 07:21] LABS: HEMOGLOBIN 13.5 G/DL (11.5-16.0); RED BLOOD COUNT 4.12 10^6/uL (4.35-5.85); RED CELL DISTRIBUTION WIDTH 12.5 % (10.0-14.5); WHITE BLOOD COUNT 7.5 10^3/uL (4.3-11.0)
[2017-12-09 07:40] LABS: BUN/CREATININE RATIO 37; CALCIUM 9.5 MG/DL (8.5-10.1); CARBON DIOXIDE 33 MMOL/L (21-32); CHLORIDE 93 MMOL/L (98-107); CREATININE SERUM 0.81 MG/DL (0.60-1.30); GFR ESTIMATED > 60; GLUCOSE 110 MG/DL (70-105); POTASSIUM 4.1 MMOL/L (3.6-5.0); SODIUM 137 MMOL/L (135-145)
[2017-12-09] MEDS: DILTIAZEM 180 MG (CARDIZEM CD) CAP PO SCH (08:35)
[2017-12-09] MEDS: VITAMIN D3 1,000 UNITS (CHOLECALCIFEROL) TABLET PO SCH ×2 (08:35→20:07)
[2017-12-09] MEDS: KCL 10 MEQ TAB (MICRO K) PO SCH ×3 (08:35→20:07)
[2017-12-09] MEDS: DICLOFENAC 1% GEL 100 GM (VOLTAREN) TUBE TOP SCH ×4 (08:35→20:08)
--- NOTE | 2017-12-09 09:13 | Occupational Ther Daily Note ---
OT Current Status-Daily Note Subjective Pt alert, lying in bed. Pt happy to have decreased edema and lost wt. Pt agrees to therapy. No c/o pain at this time. Mental Status/Objective Patient Orientation: Person, Place, Time, Situation Functional [place] Measure 0=Not Assessed/NA 4=Minimal Assistance 1=Total Assistance 5=Supervision or Setup 2=Maximal Assistance 6=Modified [place] 3=Moderate Assistance 7=Complete [place] Attachments: [place] Catheter, IV ADL-Treatment Mod I for supine to sitting using bed rails and HOB raised. Ambulated with 4WW to bathroom with SBA, assist to manipulate IV pole. Assist to manipulate clothing and cleanse with toileting, pt cleanses christin area and assist to cleanse buttocks, while pt balances self with 4WW and grabbars. Pt declined shower, stating that it will make her to tired to do anymore therapy. Sponge bath completed. Pt is able to stand at sink with 4WW to complete grooming, mod I. Pt fatigues quickly and c/o SOA. Lymphedema wrapping of B LE's completed. Edema has noticeable decreased throughout body. Wrapped R LE with 4 wraps to upper thigh. Wrapped L LE with 5 wraps to upper thigh. Ointment and Betadine applied to wounds. Pt takes increased time to complete ADLs due to decreased activity tolerance, takes multiple recovery breaks. After therapy, pt lying in bed with call light/phone in reach. All needs met in room. Functional [place] Measure 0=Not Assessed/NA 4=Minimal Assistance 1=Total Assistance 5=Supervision or Setup 2=Maximal Assistance 6=Modified [place] 3=Moderate Assistance 7=Complete IndependenceIRFPAI Quality Coding Scale 6 Independent with activity with or without an assistive device 5 Patient requires set up or clean up by helper. Patient completes activity by themselves 4 Supervision or touching assist (CGA). [place] provide cues , steadying assist 3 The helper provides less than half the effort to complete the activity 2 The helper provides more than half the effort to complete the activity 1 Dependent. The helper does all the effort to complete an activity 7 Patient refused to complete or attempt activity 9 The patient did not perform the activity before the current illness or injury 88 Not attempted due to Medical conditions or safety concerns Grooming (FIM): 6 Oral Hygiene (QC): 6 Upper Body (FIM): 2 (Assist to get shirt over hands then pt able to pull up/ down arms. Assist to boat puller head and down back. Assist to adjust bra and hook into back. Assist to don/doff all braces.) Upper Body Dressing (QC): 2 Lower Body Dressing (FIM): 2 Lower Body Dressing (QC): 2 On/Off Footwear (QC): 1 Toileting (FIM): 3 Toileting Hygiene (QC): 3 Transfers (B, C, W/C) (FIM): 5 Toilet/Commode Transfer (FIM): 5 Toilet Transfer (QC): 4 OT Short Term Goals Short Term Goals Transfers (B,C,W/C) (FIM): 4 1=Demonstrate adherence to instructed precautions during ADL tasks. 2=Patient will verbalize/demonstrate understanding of assistive devices/ modifications for ADL. 3=Patient will improve strength/tolerance for activity to enable patient to perform ADL's. OT Director Instrumentation Goals Correction Goals Time Frame: Dec 17, 2017 Eating (FIM): 6 Eating (QC): 6 Groomin Oral Hygiene (QC): 5 Bathing(FIM): 5 Shower/Bathe Self (QC): 5 Toileting(FIM): 6 Toileting Hygiene (QC): 6 Transfers (B,C,W/C) (FIM): 6 Toilet/Commode Transfer(FIM): 6 Toilet/Commode Transfer (QC): 6 Pt. does not shower at home, and does not dress self. Therefore, these will not be goals to achieve in this setting. However, OT will assist pt. with spongebath and will provide dressing assist. Additional Goals: 1-Demonstrate ADL Tasks, 2-Verbalize Understanding, 3- ImproveStrength/Shamika 1=Demonstrate adherence to instructed precautions during ADL tasks. 2=Patient will verbalize/demonstrate understanding of assistive devices/ modifications for ADL. 3=Patient will improve strength/tolerance for activity to enable patient to perform ADL's. OT Education/Plan Discharge Recommendations Plan/Recommendations: Continue POC Treatment Plan/Plan of Care Patient would benefit from OT for education, treatment and training to promote independence in ADL's, mobility, safety and/or upper extremity function for ADL' s. Plan of Care: ADL Retraining, Functional Mobility, Group Exercise/Act as Ind, UE Funct Exercise/Act Treatment Duration: Dec 17, 2017 Frequency: At least 5 of 7 days/Wk (IRF) Estimated Hrs Per Day: 1.5 hours per day Agreement: Yes Rehab Potential: Good Time/GCodes Start Time: 07:00 Stop Time: 08:30 Total Time Billed (hr/min): 90 Billed Treatment Time 1 visit-ADL 6 (90 min) ORA GLEASON Dec 09, 2017 09:13
--- NOTE | 2017-12-09 10:49 | Physical Therapy Daily Note ---
PT Daily Note-Current Subjective Pt laying Supine in bed upon arrival. Pt agrees to PT for full 90m. Pain Numeric Pain Scale: 3 Location: Right Location Body Site: Shoulder Pain Description: Ache Mental Status Patient Orientation: Person, Place, Time, Situation Attachments: Other-See Comments (B boot, brace for RUE & abdominal brace) Transfers Functional [place] Measure 0=Not Assessed/NA 4=Minimal Assistance 1=Total Assistance 5=Supervision or Setup 2=Maximal Assistance 6=Modified [place] 3=Moderate Assistance 7=Complete IndependenceIRFPAI Quality Coding Scale 6 Independent with activity with or without an assistive device 5 Patient requires set up or clean up by helper. Patient completes activity by themselves 4 Supervision or touching assist (CGA). [place] provide cues , steadying assist 3 The helper provides less than half the effort to complete the activity 2 The helper provides more than half the effort to complete the activity 1 Dependent. The helper does all the effort to complete an activity 7 Patient refused to complete or attempt activity 9 The patient did not perform the activity before the current illness or injury 88 Not attempted due to Medical conditions or safety concerns Scootin Supine to/from Sit: 4 Sit to/from Stand: 4 Sit to Lying (QC): 4 Sit to Stand (QC): 4 Weight Bearing Right Lower Extremity: Right Full Weight Bearing Left Lower Extremity: Left Full Weight Bearing Gait Training Does the Patient Walk?: Yes Distance (FIM): 3=150 ft Distance: 150' Walk 10 feet (QC): 5 Walk 50 ft with 2 Turns(QC): 5 Walk 150 ft (QC): 5 Gait Level of Assist: 5 Gait Persons Needed: 1 Gait Assistive Device: Walker 4 Wheeled Pt has slow jack, steady, no LOB. Pt fatigues and needs occasional rest break, extended break to recover. Wheelchair Training Does the Pt Use a Wheelchair?: No Exercises Seated Therapy Exercises: Ankle pumps, Long arc quads, Hip flexion, Kicking activity Seated Reps: 15 NuStep Minutes: 10 NuStep Workload: 4 Treatments Pt transfers from Supine to EOB at SBA then EOB to Standing using 4WW with bed raised to assist at CGA. Pt ambulates in hallway using 4WW at SBA, assisting to manage IV pole and Bradford. Pt completes Seated Ex at EOM then uses NuStep for 10m at WL 4. Pt takes rest break before ambulating again in hallway. Pt completes car transfer with BOWLING ALLEY OPERATOR's assist to left BLE into car. Pt returns to room to rest Supine in bed, BOWLING ALLEY OPERATOR helps reposition. Pt asks what happens at [facility] this afternoon and when she might expect discharge. Pt would like to stay through early next week if possible but no need for additional equipment (has lift chair/adjusts to bed, power chair being obtained for outside distance mobility & [place] Chair lift for stairs w/in house). Pt is resting at end of tx with all needs met. Assessment Current Status: Good Progress Pt continues to fluid wt (up to approx 25# lost). Pt's mobility has improved but continues to fatigue occasionally. Pt does self limit though. PT Short Term Goals Short Term Goals Time Frame: Dec 10, 2017 Transfers (B,C,W/C) (FIM): 4 Gait (FIM): 4 Gait Distance Comment: 150' Gait Level of Assist: 4 Gait Assistive Device: Walker 4 Wheeled PT Halfway Goals Client Delivery Manager Goals PT Client Delivery Manager Goals Time Frame: Dec 24, 2017 Transfers (B,C,W/C) (FIM): 5 Sit to Lying (QC): 4 Lying-Sitting on Side/Bed(QC): 4 Sit to Stand (QC): 4 Rollin Roll Left to Right (QC): 4 Chair/Jrx-ix-Gkdma Xfer(QC): 4 Car Transfer (QC): 4 Does the Patient Walk: Yes Gait (FIM): 5 Distance: 250' Walk 10 feet (QC): 4 Walk 10ft-Uneven Surface(QC): 4 Walk 50ft with 2 Turns (QC): 4 Walk 150 ft (QC): 4 Gait Level of Assist: 5 Gait Assistive Device: Walker 4 Wheeled Stairs (FIM): 2 # of Steps: 4 1 Step (curb) (QC): 4 4 Steps (QC): 4 Stairs Level Of Assist: 5 Picking up an Object (QC): 4 PT Plan Problem List Problem List: Activity Tolerance, Functional Strength, Safety, Balance, Gait, Transfer, Bed Mobility Treatment/Plan Treatment Plan: Continue Plan of Care Treatment Plan: Bed Mobility, Concurrent Therapy, Education, Functional Activity Shamika, Functional Strength, Group Therapy, Gait, Safety, Therapeutic Exercise, Transfers Treatment Duration: Dec 24, 2017 Frequency: At least 5 of 7 days/Wk (IRF) Estimated Hrs Per Day: 1.5 hours per day Patient and/or Family Agrees t: Yes Safety Risks/Education Patient Education: Gait Training, Transfer Techniques, Correct Positioning, Safety Issues Teaching Recipient: Patient Teaching Methods: Discussion Response to Teaching: Verbalize Understanding Time/GCodes Time In: 900 Time Out: 1030 Total Billed Treatment Time: 90 Total Billed Treatment 1, FA x2 (30m), GT x2 (30m) & EX x2 (30m) G Codes Necessary: DANDRE Valdez BOWLING ALLEY OPERATOR Dec 09, 2017 10:49
[2017-12-09] MEDS: ASCORBIC ACID (VIT C) 500 MG TABLET PO SCH (16:53)
[2017-12-09] MEDS: predniSONE 5 MG TAB PO SCH (20:07)
[2017-12-09] MEDS: POLYETHYLENE GLYCOL 17 GM (MIRALAX) PACK PO SCH (20:08)
[2017-12-09] MEDS: POVIDONE (BETADINE) 10% SOLN 240 ML BTL TOP SCH (20:13)
[2017-12-09] MEDS: SILVER SULFADIAZINE 400 GM CREAM TOP SCH (20:13)
[2017-12-10 04:02] VITALS: BP 115/72
[2017-12-10] MEDS: CALCIUM CARB + VIT D 600 MG (CALCARB + D) TAB PO SCH ×3 (06:12→22:02)
[2017-12-10] MEDS: CATHETER FLUSH 10 ML SYR IV SCH ×3 (06:12→19:56)
[2017-12-10] MEDS: PANTOPRAZOLE 40 MG (PROTONIX) TAB PO SCH (06:12)
[2017-12-10] MEDS: VITAMIN D3 1,000 UNITS (CHOLECALCIFEROL) TABLET PO SCH ×2 (08:07→21:09)
[2017-12-10] MEDS: DILTIAZEM 180 MG (CARDIZEM CD) CAP PO SCH (08:07)
[2017-12-10] MEDS: KCL 10 MEQ TAB (MICRO K) PO SCH ×3 (08:07→21:08)
[2017-12-10] MEDS: DICLOFENAC 1% GEL 100 GM (VOLTAREN) TUBE TOP SCH ×4 (08:11→21:10)
[2017-12-10] MEDS: fentaNYL PATCH 100 MCG (DURAGESIC) TD SCH (08:51)
[2017-12-10] MEDS: FENTANYL 100 MCG PATCH REMOVAL TP SCH (08:52)
--- NOTE | 2017-12-10 09:07 | PM & R (SOAP) Progress Note ---
Subjective This was a face to face visit with the patient. Date Seen by Provider: Dec 10, 2017 Time Seen by Provider: 08:30 Subjective/Events-last exam Patient was seen in her room this AM Patient min assist for transfers Peripheral edema decreased with wraps and diuresis Review of Systems Cardiovascular: Edema Musculoskeletal: shoulder pain, leg pain Objective Physician Exam Last Set of Vital Signs Vital Signs Date Time Temp Pulse Resp B/P (MAP) Pulse Ox O2 Delivery O2 Flow Rate FiO2 12/10/17 04:02 97.6 87 16 115/72 (86) 96 Room Air Capillary Refill : I&O Intake and Output 12/10/17 00:00 Intake Total 2388 ml Output Total 4450 ml Balance -2062 ml Intake Oral 2170 ml IV Total 218 ml Output Urine Total 4450 ml # Bowel Movements 1 General: Alert, Oriented X3, Cooperative, No Acute Distress HEENT: Atraumatic, EOMI, Mucous Memb Moist/[place]: Supple, No JVD Lungs: Clear to Auscultation Heart: Regular Rate Abdomen: Normal Bowel Sounds, Soft, No Tenderness Extremities: Other (plus edema ) Neuro: Other (generalized weakness Arthralgias) Results Lab Data Laboratory Tests 12/08/17 10:10: Glucometer 84 12/09/17 07:00: White Blood Count 7.5, Red Blood Count 4.12L, Hemoglobin 13.5, Hematocrit 41, Mean Corpuscular Volume 99, Mean Corpuscular Hemoglobin 33, Mean Corpuscular Hemoglobin Concent 33, Red Cell Distribution Width 12.5, Platelet Count 332, Mean Platelet Volume 9.0, Sodium Level 137, Potassium Level 4.1, Chloride Level 93L, Carbon Dioxide Level 33H, Anion Gap 11, Blood Urea Nitrogen 30H, Creatinine 0.81, Estimat Glomerular Filtration Rate > 60, BUN/Creatinine Ratio 37, Glucose Level 110H, Calcium Level 9.5, Magnesium Level 2.0 Assessment/Plan Assessment and Plan OA with chronic pain Lymphedema A FIB controlled with med HTN Plan Continue PT/OT/wraps Team Conference [facility] yesterday-see report for full functional update and POC and ELOS Discharge set tentatively for next week Will f/u re details with SW/Team Co-Morbidities that are continuing to impact the rehab process: (include details ) BERE BEAN MD Dec 10, 2017 09:07
--- NOTE | 2017-12-10 09:21 | Progress Note ---
Subjective Date Seen by a Provider: Dec 10, 2017 Time Seen by a Provider: 09:20 Subjective/Events-last exam PT REPORTS THAT SHE IS FEELING SIGNIFICANTLY BETTER - SHE HAS HAD A TREMENDOUS AMOUNT OF WEIGHT LOSS AND FEELS GOOD NOW. STAFF REPORTS THAT SHE IS WORKING MUCH BETTER WITH STAFF AND IS PLANNING ON GOING HOME NEXT WEEK. Review of Systems General: Fatigue HEENT: No Head Aches Pulmonary: No Dyspnea, No Cough Cardiovascular: No: Chest Pain, Palpitations Gastrointestinal: No: Nausea, Abdominal Pain Genitourinary: Other (MANDUJANO IN PLACE) Musculoskeletal: neck pain, shoulder pain, leg pain Neurological: Weakness; No: Confusion WOUND ON LEFT MEDIAL CALF Objective Exam Last Set of Vital Signs Vital Signs Date Time Temp Pulse Resp B/P (MAP) Pulse Ox O2 Delivery O2 Flow Rate FiO2 12/10/17 04:02 97.6 87 16 115/72 (86) 96 Room Air Capillary Refill : I&O Intake and Output 12/10/17 00:00 Intake Total 2388 ml Output Total 4450 ml Balance -2062 ml Intake Oral 2170 ml IV Total 218 ml Output Urine Total 4450 ml # Bowel Movements 1 General: Alert, Oriented X3, Cooperative, No Acute Distress HEENT: Atraumatic, EOMI, Mucous Memb Moist/[place] Neck: Supple, No JVD Lungs: Clear to Auscultation Heart: Regular Rate Abdomen: Normal Bowel Sounds, Soft, No Tenderness Extremities: Other (IMPROVED EDEMA BILATERAL LOWER EXTREMITIES - WITH OPEN WOUND ON LEFT MEDIAL CALF WITH PINK GRANULATION TISSUE PRESENT) Neuro: Other (generalized weakness Arthralgias) Assessment/Plan Assessment/Plan Assess & Plan/Chief Complaint INFLAMMATORY ARTHRITIS OF SHOULDERS, HANDS ARTHRITIS OF KNEES CHRONIC PAIN SYNDROME LYMPHEDEMA HYPERTENSION ESOPHAGEAL REFLUX CHRONIC STEROID USE ANEMIA VITAMIN D DEFICIENCY HYPOKALEMIA INFLAMMATORY ARTHRITIS OF SHOULDERS, HANDS AND ARTHRITIS OF KNEES - WITH CHRONIC PAIN SYNDROME: PT HAS BEEN ON MULTIPLE TREATMENTS WITH MACHINE [facility] - HOWEVER EARLIER THIS YEAR - THEY TOLD HER THAT THERE IS NOTHING ELSE THAT THEY CAN DO AND HAVE RELEASED HER BACK INTO MY CARE - SHE WILL BE MAINTAINED ON CHRONIC PAIN MEDICATION OF FENTANYL AND PRN OXYCODONE AND DAILY STEROIDS - WILL GIVE A BURST OF STEROID FOR THE NEXT FEW DAYS THEN GO BACK TO PREDNISONE 5MG DAILY ONLY. LYMPHEDEMA - IMPROVED SYMPTOMS -DECREASE LASIX DRIP TO 5MG/HR HYPOKALEMIA - ON ADMISSION IMPROVED - MONITOR LABS PERIODICALLY. HYPERTENSION - RESTARTED CARDIZEM ON ADMISSION ESOPHAGEAL REFLUX - RESTARTED PPI ON ADMISSION. CHRONIC STEROID USE - BACK DOWN TO OUTPATIENT PREDNISONE LEVELS. ANEMIA - STABLE - CHECK LABS VITAMIN D DEFICIENCY - LOW VITAMIN D - VITAMIN D2 50,000 UNITS WEEKLY - AND VITAMIN D3 1000 UNITS TWICE DAILY. LEG PAIN - ULTRASOUND NEGATIVE FOR DVT ATRIAL FIBRILLATION - CHRONIC - PT ON CARDIZEM - CANNOT BE ON ANTICOAGS/NOACS, ASPIRIN DUE TO HEMARTHROSIS. HOLD OFF ON LOVENOX FOR DVT PROPHYLAXIS DUE TO HX OF SEVERE INTRAARTICULAR JOINT HEMARTHROSIS AFTER LAST TIME SHE GOT LOVENOX. Clinical Quality Measures DVT/VTE Risk/Contraindication: Risk Factor Score Per Nursin RFS Level Per Nursing on Admit: 4+=Very High Contraindications-Pharm: Other *list below* Other: HX OF INTRAARTICULAR HEMARTHROSIS WITH LAST LOVENOX INJECTIONS WOODY CARBONE MD Dec 10, 2017 09:21
--- NOTE | 2017-12-10 11:50 | Occupational Ther Daily Note ---
OT Current Status-Daily Note Mental Status/Objective Patient Orientation: Person, Place, Time, Situation Functional [place] Measure 0=Not Assessed/NA 4=Minimal Assistance 1=Total Assistance 5=Supervision or Setup 2=Maximal Assistance 6=Modified [place] 3=Moderate Assistance 7=Complete [place] Attachments: [place] Catheter, IV ADL-Treatment Mod I for supine to sitting using bed rails and HOB slightly raised. Ambulated with 4WW to bathroom with SBA, assist to manipulate IV pole. Assist to manipulate clothing with toileting, pt cleanses christin area/buttocks while pt balances self with 4WW and grabbars. Pt declined shower, stating that it will make her to tired to do anymore therapy. Sponge bath completed. Pt is able to stand at sink with 4WW to complete grooming, mod I. Pt fatigues quickly and c/ o SOA. Lymphedema wrapping of B LE's completed. Edema has noticeable decreased throughout body. Wrapped R LE with 4 wraps to upper thigh. Wrapped L LE with 4 wraps to upper thigh. Ointment and Betadine applied to wounds on R foot. Noted increased drainage from wound on L lower leg and pressure area on L inner ankle, nrsg notified. Pt takes increased time to complete ADLs due to decreased activity tolerance, takes multiple recovery breaks. Pt is moving better as edema decreases. After therapy, pt lying in bed with call light/ phone in reach. All needs met in room. Functional [place] Measure 0=Not Assessed/NA 4=Minimal Assistance 1=Total Assistance 5=Supervision or Setup 2=Maximal Assistance 6=Modified [place] 3=Moderate Assistance 7=Complete IndependenceIRFPAI Quality Coding Scale 6 Independent with activity with or without an assistive device 5 Patient requires set up or clean up by helper. Patient completes activity by themselves 4 Supervision or touching assist (CGA). [place] provide cues , steadying assist 3 The helper provides less than half the effort to complete the activity 2 The helper provides more than half the effort to complete the activity 1 Dependent. The helper does all the effort to complete an activity 7 Patient refused to complete or attempt activity 9 The patient did not perform the activity before the current illness or injury 88 Not attempted due to Medical conditions or safety concerns Grooming (FIM): 6 Oral Hygiene (QC): 6 Upper Body (FIM): 3 Upper Body Dressing (QC): 3 Lower Body Dressing (FIM): 2 Lower Body Dressing (QC): 2 On/Off Footwear (QC): 1 Toileting (FIM): 4 Toileting Hygiene (QC): 3 Transfers (B, C, W/C) (FIM): 5 Toilet/Commode Transfer (FIM): 5 Toilet Transfer (QC): 5 OT Short Term Goals Short Term Goals Transfers (B,C,W/C) (FIM): 4 1=Demonstrate adherence to instructed precautions during ADL tasks. 2=Patient will verbalize/demonstrate understanding of assistive devices/ modifications for ADL. 3=Patient will improve strength/tolerance for activity to enable patient to perform ADL's. OT Retirement Goals Tig Welder Goals Time Frame: Dec 17, 2017 Eating (FIM): 6 Eating (QC): 6 Groomin Oral Hygiene (QC): 5 Bathing(FIM): 5 Shower/Bathe Self (QC): 5 Toileting(FIM): 6 Toileting Hygiene (QC): 6 Transfers (B,C,W/C) (FIM): 6 Toilet/Commode Transfer(FIM): 6 Toilet/Commode Transfer (QC): 6 Pt. does not shower at home, and does not dress self. Therefore, these will not be goals to achieve in this setting. However, OT will assist pt. with spongebath and will provide dressing assist. Additional Goals: 1-Demonstrate ADL Tasks, 2-Verbalize Understanding, 3- ImproveStrength/Shamika 1=Demonstrate adherence to instructed precautions during ADL tasks. 2=Patient will verbalize/demonstrate understanding of assistive devices/ modifications for ADL. 3=Patient will improve strength/tolerance for activity to enable patient to perform ADL's. OT Education/Plan Discharge Recommendations Plan/Recommendations: Continue POC Treatment Plan/Plan of Care Patient would benefit from OT for education, treatment and training to promote independence in ADL's, mobility, safety and/or upper extremity function for ADL' s. Plan of Care: ADL Retraining, Functional Mobility, Group Exercise/Act as Ind, UE Funct Exercise/Act Treatment Duration: Dec 17, 2017 Frequency: At least 5 of 7 days/Wk (IRF) Estimated Hrs Per Day: 1.5 hours per day Agreement: Yes Rehab Potential: Good Time/GCodes Start Time: 07:00 Stop Time: 08:30 Total Time Billed (hr/min): 90 Billed Treatment Time 1 visit-ADL 6 (90 min) ORA GLEASON Dec 10, 2017 11:50
--- NOTE | 2017-12-10 11:58 | Physical Therapy Daily Note ---
PT Daily Note-Current Subjective Pt laying Supine in bed upon arrival. Pt agrees to PT. Pain Numeric Pain Scale: 5-Moderate Pain Location: Right Location Body Site: Shoulder Pain Description: Ache Mental Status Patient Orientation: Person, Place, Time, Situation Attachments: Other-See Comments (Cervical Collar, R Shoulder Brace & B Boots) Transfers Functional [place] Measure 0=Not Assessed/NA 4=Minimal Assistance 1=Total Assistance 5=Supervision or Setup 2=Maximal Assistance 6=Modified [place] 3=Moderate Assistance 7=Complete IndependenceIRFPAI Quality Coding Scale 6 Independent with activity with or without an assistive device 5 Patient requires set up or clean up by helper. Patient completes activity by themselves 4 Supervision or touching assist (CGA). [place] provide cues , steadying assist 3 The helper provides less than half the effort to complete the activity 2 The helper provides more than half the effort to complete the activity 1 Dependent. The helper does all the effort to complete an activity 7 Patient refused to complete or attempt activity 9 The patient did not perform the activity before the current illness or injury 88 Not attempted due to Medical conditions or safety concerns Scootin Supine to/from Sit: 5 Sit to/from Stand: 5 Sit to Lying (QC): 5 Sit to Stand (QC): 5 Car Transfer (QC): 4 Pt is improving with transfers although sometimes needs bed lowered to lift BLE into bed. Weight Bearing Right Lower Extremity: Right Full Weight Bearing Left Lower Extremity: Left Full Weight Bearing Gait Training Does the Patient Walk?: Yes Distance (FIM): 3=150 ft Distance: 200' Walk 10 feet (QC): 5 Walk 50 ft with 2 Turns(QC): 5 Walk 150 ft (QC): 5 Gait Level of Assist: 5 Gait Persons Needed: 1 Gait Assistive Device: Walker 4 Wheeled Pt walks slowly but with more normalized gait. Pt is working on putting less Wbing through UE and more through BLE. Wheelchair Training Does the Pt Use a Wheelchair?: No Exercises Seated Therapy Exercises: Ankle pumps, Long arc quads, Hip flexion, Kicking activity Seated Reps: 15 NuStep Minutes: 10 NuStep Workload: 4 Treatments Pt visits with Dr Silva at beginning of tx. Pt questioned about how to keep Fluid Retention from returning. Dr Silva wants pt to monitor Salt intake better, continue with Compression wrapping/garments as well as elevate BLE. Pt completes Seated Ex at EOB. CYLINDER BLOCK HOLE RELINER assists pt with donning/doffing R shoulder brace as well as BLE boots. Pt transfers at SBA from Seated surface. Pt ambulates in hallway using 4WW at SBA. Pt completes car transfer at Min A for lifting BLE into car. Pt then uses NuStep for 10m at WL 4. Pt again ambulates in hallway before returning to room. Pt transfers back to Supine in bed with bed lowered to assist pt with lifting own legs into bed. CYLINDER BLOCK HOLE RELINER assists with positioning, pt has all needs met at end of tx. Assessment Current Status: Good Progress Pt continues to improve with independence of mobility & transfers as well as improved activity tolerance. PT Short Term Goals Short Term Goals Time Frame: Dec 10, 2017 Transfers (B,C,W/C) (FIM): 4 Gait (FIM): 4 Gait Distance Comment: 150' Gait Level of Assist: 4 Gait Assistive Device: Walker 4 Wheeled PT [place] Goals [place] Goals PT [place] Goals Time Frame: Dec 24, 2017 Transfers (B,C,W/C) (FIM): 5 Sit to Lying (QC): 4 Lying-Sitting on Side/Bed(QC): 4 Sit to Stand (QC): 4 Rollin Roll Left to Right (QC): 4 Chair/Gqo-fr-[place] Xfer(QC): 4 Car Transfer (QC): 4 Does the Patient Walk: Yes Gait (FIM): 5 Distance: 250' Walk 10 feet (QC): 4 Walk 10ft-Uneven Surface(QC): 4 Walk 50ft with 2 Turns (QC): 4 Walk 150 ft (QC): 4 Gait Level of Assist: 5 Gait Assistive Device: Walker 4 Wheeled Stairs (FIM): 2 # of Steps: 4 1 Step (curb) (QC): 4 4 Steps (QC): 4 Stairs Level Of Assist: 5 Picking up an Object (QC): 4 PT Plan Problem List Problem List: Activity Tolerance, Functional Strength, Gait, Transfer Treatment/Plan Treatment Plan: Continue Plan of Care Treatment Plan: Bed Mobility, Concurrent Therapy, Education, Functional Activity Shamika, Functional Strength, Group Therapy, Gait, Safety, Therapeutic Exercise, Transfers Treatment Duration: Dec 24, 2017 Frequency: At least 5 of 7 days/Wk (IRF) Estimated Hrs Per Day: 1.5 hours per day Patient and/or Family Agrees t: Yes Safety Risks/Education Patient Education: Gait Training, Transfer Techniques, Correct Positioning, Reviewed Don/Doff Brace, Safety Issues Teaching Recipient: Patient Teaching Methods: Discussion Response to Teaching: Verbalize Understanding Time/GCodes Time In: 900 Time Out: 1030 Total Billed Treatment Time: 90 Total Billed Treatment 1, GT x2 (30m), EX x2 (30m) & FA x2 (30m) DANDRE ELON CYLINDER BLOCK HOLE RELINER Dec 10, 2017 11:58
[2017-12-10] MEDS: FUROSEMIDE INJECTION 120 MG in D5W 100 ML IVPB 108 ML IV SCH (13:42)
[2017-12-10 15:42] VITALS: BP 122/81
[2017-12-10] MEDS: ASCORBIC ACID (VIT C) 500 MG TABLET PO SCH (16:52)
[2017-12-10] MEDS: POLYETHYLENE GLYCOL 17 GM (MIRALAX) PACK PO SCH (19:53)
[2017-12-10] MEDS: POVIDONE (BETADINE) 10% SOLN 240 ML BTL TOP SCH (19:56)
[2017-12-10] MEDS: SILVER SULFADIAZINE 400 GM CREAM TOP SCH (19:56)
[2017-12-10] MEDS: predniSONE 5 MG TAB PO SCH (21:09)
[2017-12-11 05:03] VITALS: BP 123/77
[2017-12-11] MEDS: PANTOPRAZOLE 40 MG (PROTONIX) TAB PO SCH (05:52)
--- NOTE | 2017-12-11 08:00 | PM & R (SOAP) Progress Note ---
Subjective This was a face to face visit with the patient. Date Seen by Provider: Dec 11, 2017 Time Seen by Provider: 07:35 Subjective/Events-last exam Patient was seen in her room this AM with OT Wound Left leg seen after wraps removed Superficial stage 2 after blister burst approc 1 inch by 1 and 1/2 inch in size.Peripheral edeam markedly improved with wraps and Diuresis.[place] just out this AM Will monitor for urinary retention.Patient SBA for transfers. Objective Physician Exam Last Set of Vital Signs Vital Signs Date Time Temp Pulse Resp B/P (MAP) Pulse Ox O2 Delivery O2 Flow Rate FiO2 12/11/17 05:03 96.8 101 18 123/77 (92) 94 Room Air Capillary Refill : I&O Intake and Output 12/11/17 00:00 Intake Total 1770 ml Output Total 4750 ml Balance -2980 ml Intake Oral 1770 ml Output Urine Total 4750 ml General: Alert, Oriented X3, Cooperative, No Acute Distress HEENT: Atraumatic, EOMI, Mucous Memb Moist/[place] Neck: Supple, No JVD Lungs: Clear to Auscultation Heart: Regular Rate Abdomen: Normal Bowel Sounds, Soft, No Tenderness Extremities: Other (plus edema ) Neuro: Other (generalized weakness Arthralgias) Results Lab Data Laboratory Tests 12/08/17 10:10: Glucometer 84 12/09/17 07:00: White Blood Count 7.5, Red Blood Count 4.12L, Hemoglobin 13.5, Hematocrit 41, Mean Corpuscular Volume 99, Mean Corpuscular Hemoglobin 33, Mean Corpuscular Hemoglobin Concent 33, Red Cell Distribution Width 12.5, Platelet Count 332, Mean Platelet Volume 9.0, Sodium Level 137, Potassium Level 4.1, Chloride Level 93L, Carbon Dioxide Level 33H, Anion Gap 11, Blood Urea Nitrogen 30H, Creatinine 0.81, Estimat Glomerular Filtration Rate > 60, BUN/Creatinine Ratio 37, Glucose Level 110H, Calcium Level 9.5, Magnesium Level 2.0 Assessment/Plan Assessment and Plan OA with chronic pain Lymphedema much improved with diuresis and wraps-has lost >20 lbs A FIB controlled with med HTN Stage 2 wound from blister burst left leg Hypomagnesemia corrected Plan Continue Pt/Ot/Wound care F/U with DR Silva re ongoing wound care-Appreciate her order Monitor for urinary retention Team Conference next week Discharge set for next week to home with family Goal Modified Independent for adls and mobility skills Co-Morbidities that are continuing to impact the rehab process: (include details ) BERE BEAN MD Dec 11, 2017 08:00
[2017-12-11] MEDS: DILTIAZEM 180 MG (CARDIZEM CD) CAP PO SCH (08:32)
[2017-12-11] MEDS: VITAMIN D2 50,000 UNITS (1.25 MG) CAP PO SCH (08:32)
[2017-12-11] MEDS: VITAMIN D3 1,000 UNITS (CHOLECALCIFEROL) TABLET PO SCH ×2 (08:33→20:25)
[2017-12-11] MEDS: KCL 10 MEQ TAB (MICRO K) PO SCH ×3 (08:33→20:25)
[2017-12-11] MEDS: DICLOFENAC 1% GEL 100 GM (VOLTAREN) TUBE TOP SCH ×5 (08:35→21:25)
--- NOTE | 2017-12-11 08:59 | Occupational Ther Daily Note ---
OT Current Status-Daily Note Subjective Pt alert, lying in bed. Pt agrees to therapy. No c/o pain. Physician and nrsg in room, checked on L lower leg wound and area on left ankle. Improvement noted. Mental Status/Objective Patient Orientation: Person, Place, Time, Situation Functional [place] Measure 0=Not Assessed/NA 4=Minimal Assistance 1=Total Assistance 5=Supervision or Setup 2=Maximal Assistance 6=Modified [place] 3=Moderate Assistance 7=Complete [place] Attachments: IV ADL-Treatment Mod I for supine to sitting using bed rails and HOB raised. Ambulated with 4WW to bathroom with SBA, assist to manipulate IV pole. Assist to manipulate back of clothing with toileting, pt cleanses christin area/buttocks while pt balances self with 4WW and grabbars. Pt declined shower, stating that it will make her to tired to do anymore therapy. Sponge bath completed. Pt had already completed grooming prior to OT. After set up, pt requires min A for upper body dressing, assist only to pull over machine operator head, hook bra and pull down in back. Max A for lower body dressing, dependent for donning/doffing footwear. Pt fatigues quickly. Lymphedema wrapping of B LE's completed. Edema has noticeable decreased throughout body. Wrapped R LE with 4 wraps to upper thigh. Wrapped L LE with 4 wraps to upper thigh. Ointment and Betadine applied to wounds on R foot. Noted decrease in drainage from wound on L lower leg and pressure area on L inner ankle, nrsg notified. Pt takes increased time to complete ADLs due to decreased activity tolerance, takes multiple recovery breaks. Pt is moving better as edema decreases. After therapy, pt lying in bed with call light/ phone in reach. All needs met in room. Functional [place] Measure 0=Not Assessed/NA 4=Minimal Assistance 1=Total Assistance 5=Supervision or Setup 2=Maximal Assistance 6=Modified [place] 3=Moderate Assistance 7=Complete IndependenceIRFPAI Quality Coding Scale 6 Independent with activity with or without an assistive device 5 Patient requires set up or clean up by helper. Patient completes activity by themselves 4 Supervision or touching assist (CGA). [place] provide cues , steadying assist 3 The helper provides less than half the effort to complete the activity 2 The helper provides more than half the effort to complete the activity 1 Dependent. The helper does all the effort to complete an activity 7 Patient refused to complete or attempt activity 9 The patient did not perform the activity before the current illness or injury 88 Not attempted due to Medical conditions or safety concerns Upper Body (FIM): 4 Upper Body Dressing (QC): 3 Lower Body Dressing (FIM): 2 Lower Body Dressing (QC): 2 On/Off Footwear (QC): 1 Toileting (FIM): 4 Toileting Hygiene (QC): 3 Transfers (B, C, W/C) (FIM): 6 Toilet/Commode Transfer (FIM): 6 Toilet Transfer (QC): 6 OT Short Term Goals Short Term Goals Transfers (B,C,W/C) (FIM): 4 1=Demonstrate adherence to instructed precautions during ADL tasks. 2=Patient will verbalize/demonstrate understanding of assistive devices/ modifications for ADL. 3=Patient will improve strength/tolerance for activity to enable patient to perform ADL's. OT Snf Goals Snf Goals Time Frame: Dec 17, 2017 Eating (FIM): 6 Eating (QC): 6 Groomin Oral Hygiene (QC): 5 Bathing(FIM): 5 Shower/Bathe Self (QC): 5 Toileting(FIM): 6 Toileting Hygiene (QC): 6 Transfers (B,C,W/C) (FIM): 6 Toilet/Commode Transfer(FIM): 6 Toilet/Commode Transfer (QC): 6 Pt. does not shower at home, and does not dress self. Therefore, these will not be goals to achieve in this setting. However, OT will assist pt. with spongebath and will provide dressing assist. Additional Goals: 1-Demonstrate ADL Tasks, 2-Verbalize Understanding, 3- ImproveStrength/Shamika 1=Demonstrate adherence to instructed precautions during ADL tasks. 2=Patient will verbalize/demonstrate understanding of assistive devices/ modifications for ADL. 3=Patient will improve strength/tolerance for activity to enable patient to perform ADL's. OT Education/Plan Discharge Recommendations Plan/Recommendations: Continue POC Treatment Plan/Plan of Care Patient would benefit from OT for education, treatment and training to promote independence in ADL's, mobility, safety and/or upper extremity function for ADL' s. Plan of Care: ADL Retraining, Functional Mobility, Group Exercise/Act as Ind, UE Funct Exercise/Act Treatment Duration: Dec 17, 2017 Frequency: At least 5 of 7 days/Wk (IRF) Estimated Hrs Per Day: 1.5 hours per day Agreement: Yes Rehab Potential: Good Time/GCodes Start Time: 07:00 Stop Time: 08:50 Total Time Billed (hr/min): 110 Billed Treatment Time 1 visit-ADL 7 (110 min) ORA GLEASON Dec 11, 2017 08:59
--- NOTE | 2017-12-11 10:40 | Physical Therapy Daily Note ---
PT Daily Note-Current Subjective Pt laying Supine in bed upon arrival. Pt agrees to PT but reports fatigue at start of tx. Pain Numeric Pain Scale: 5-Moderate Pain Location Body Site: Shoulder Pain Description: Ache, Chronic Comment: Pt asks to not put R shoulder brace on due to pain Mental Status Patient Orientation: Person, Place, Time, Situation Attachments: Other-See Comments (Cervical brace & B boot) Transfers Functional [place] Measure 0=Not Assessed/NA 4=Minimal Assistance 1=Total Assistance 5=Supervision or Setup 2=Maximal Assistance 6=Modified [place] 3=Moderate Assistance 7=Complete IndependenceIRFPAI Quality Coding Scale 6 Independent with activity with or without an assistive device 5 Patient requires set up or clean up by helper. Patient completes activity by themselves 4 Supervision or touching assist (CGA). [place] provide cues , steadying assist 3 The helper provides less than half the effort to complete the activity 2 The helper provides more than half the effort to complete the activity 1 Dependent. The helper does all the effort to complete an activity 7 Patient refused to complete or attempt activity 9 The patient did not perform the activity before the current illness or injury 88 Not attempted due to Medical conditions or safety concerns Scootin Supine to/from Sit: 5 Sit to/from Stand: 5 Sit to Lying (QC): 5 Sit to Stand (QC): 5 Pt needs bed lowered to lift BLE into bed and raised to 4WW level for Sit to Stands. Pt has lift chair at home to assist. Weight Bearing Right Lower Extremity: Right Full Weight Bearing Left Lower Extremity: Left Full Weight Bearing Gait Training Does the Patient Walk?: Yes Distance (FIM): 3=150 ft Distance: 200' Walk 10 feet (QC): 5 Walk 50 ft with 2 Turns(QC): 5 Walk 150 ft (QC): 5 Gait Level of Assist: 5 Gait Persons Needed: 1 Gait Assistive Device: Walker 4 Wheeled Pt walks with slow jack,steady though w/o LOB. Pt fatigues easily today though. Exercises Seated Therapy Exercises: Ankle pumps, Long arc quads, Hip flexion, Kicking activity Seated Reps: 15 Standing: Hip Abduction, Hamstring curls, Marching Standing Reps: 15 NuStep Minutes: 15 NuStep Workload: 4 Treatments Pt transfers from Supine to EOB at SBA then EOB to Standing using 4WW with bed raised at SBA. Pt ambulates in hallway using 4WW at SBA. Pt uses NuStep for 15m at WL 4 then Seated Ex. Pt completes Standing Ex at //bars with several rest breaks due to fatigue. Pt returns to room to rest Supine in bed. Pt completes Supine Ex in bed. Pt resting at end of tx with all needs met. Assessment Current Status: Good Progress Pt is able to complete more variety of Ex but fatigues with each quicker. Pt has had [place] removed this morning so pt is up more going to restroom so pt believes this is making more fatigued. PT Short Term Goals Short Term Goals Time Frame: Dec 10, 2017 Transfers (B,C,W/C) (FIM): 4 Gait (FIM): 4 Gait Distance Comment: 150' Gait Level of Assist: 4 Gait Assistive Device: Walker 4 Wheeled PT Nursing Home Goals Comparator Operator Goals PT Nursing Home Goals Time Frame: Dec 24, 2017 Transfers (B,C,W/C) (FIM): 5 Sit to Lying (QC): 4 Lying-Sitting on Side/Bed(QC): 4 Sit to Stand (QC): 4 Rollin Roll Left to Right (QC): 4 Chair/Dof-qh-Ahgkg Xfer(QC): 4 Car Transfer (QC): 4 Does the Patient Walk: Yes Gait (FIM): 5 Distance: 250' Walk 10 feet (QC): 4 Walk 10ft-Uneven Surface(QC): 4 Walk 50ft with 2 Turns (QC): 4 Walk 150 ft (QC): 4 Gait Level of Assist: 5 Gait Assistive Device: Walker 4 Wheeled Stairs (FIM): 2 # of Steps: 4 1 Step (curb) (QC): 4 4 Steps (QC): 4 Stairs Level Of Assist: 5 Picking up an Object (QC): 4 PT Plan Problem List Problem List: Activity Tolerance, Functional Strength, Gait, Transfer Treatment/Plan Treatment Plan: Continue Plan of Care Treatment Plan: Bed Mobility, Concurrent Therapy, Education, Functional Activity Shamika, Functional Strength, Group Therapy, Gait, Safety, Therapeutic Exercise, Transfers Treatment Duration: Dec 24, 2017 Frequency: At least 5 of 7 days/Wk (IRF) Estimated Hrs Per Day: 1.5 hours per day Patient and/or Family Agrees t: Yes Safety Risks/Education Patient Education: Gait Training, Transfer Techniques, Correct Positioning, Safety Issues Teaching Recipient: Patient Teaching Methods: Discussion Response to Teaching: Verbalize Understanding Time/GCodes Time In: 900 Time Out: 1030 Total Billed Treatment Time: 90 Total Billed Treatment 1, GT x2 (30m), EX x2 (35m) & FA x2 (25m) G Codes Necessary: DANDRE Valdez MOSHGIACH Dec 11, 2017 10:40
--- NOTE | 2017-12-11 10:46 | Progress Note ---
Subjective Date Seen by a Provider: Dec 11, 2017 Time Seen by a Provider: 11:00 Subjective/Events-last exam PT IS AN 82 Y/O FEMALE WHO IS WELL KNOWN TO ME FROM CLINIC. SHE REPORTS THAT SHE CONTINUES TO FEEL BETTER, THERAPY STAFF REPORTS THAT SHE IS MOVING MUCH BETTER, MORE ACTIVE WITH STAFF THAN ON ADMISSION. SANDEEPTIM NOTES CHRONIC PAIN, BUT IT IS BETTER WITH THE DECREASE IN HER WEIGHT FROM SEVERE LYMPHEDEMA Review of Systems General: Fatigue (IMPROVED) HEENT: No Head Aches, No Dysphasia Pulmonary: No Dyspnea, No Cough Cardiovascular: Edema; No: Chest Pain, Palpitations Gastrointestinal: No: Nausea, Abdominal Pain Musculoskeletal: arm pain, back pain, leg pain Neurological: Weakness WOUND ON LEFT MEDIAL CALF Objective Exam Last Set of Vital Signs Vital Signs Date Time Temp Pulse Resp B/P (MAP) Pulse Ox O2 Delivery O2 Flow Rate FiO2 12/11/17 09:03 Room Air 12/11/17 05:03 96.8 101 18 123/77 (92) 94 Capillary Refill : I&O Intake and Output 12/11/17 00:00 Intake Total 1770 ml Output Total 4750 ml Balance -2980 ml Intake Oral 1770 ml Output Urine Total 4750 ml General: Alert, Oriented X3, Cooperative, No Acute Distress HEENT: Atraumatic, EOMI, Mucous Memb Moist/[place] Neck: Supple, No JVD Lungs: Clear to Auscultation Heart: Regular Rate Abdomen: Normal Bowel Sounds, Soft, No Tenderness Extremities: Other (IMPROVED EDEMA BILATERAL UPPER AND LOWER EXTREMITIES - WITH OPEN WOUND ON LEFT MEDIAL CALF WITH PINK GRANULATION TISSUE PRESENT) Neuro: Other (generalized weakness Arthralgias) Psych/Mental Status: Mental Status NL, Mood NL Assessment/Plan Assessment/Plan Assess & Plan/Chief Complaint INFLAMMATORY ARTHRITIS OF SHOULDERS, HANDS ARTHRITIS OF KNEES CHRONIC PAIN SYNDROME LYMPHEDEMA HYPERTENSION ESOPHAGEAL REFLUX CHRONIC STEROID USE ANEMIA VITAMIN D DEFICIENCY HYPOKALEMIA INFLAMMATORY ARTHRITIS OF SHOULDERS, HANDS AND ARTHRITIS OF KNEES - WITH CHRONIC PAIN SYNDROME: PT HAS BEEN ON MULTIPLE TREATMENTS WITH [facility] ARCHITECT - HOWEVER EARLIER THIS YEAR - THEY TOLD HER THAT THERE IS NOTHING ELSE THAT THEY CAN DO AND HAVE RELEASED HER BACK INTO MY CARE - SHE WILL BE MAINTAINED ON CHRONIC PAIN MEDICATION OF FENTANYL AND PRN OXYCODONE AND DAILY STEROIDS - CONTINUE WITH PREDNISONE 5MG DAILY ONLY. LYMPHEDEMA - IMPROVED SYMPTOMS -CHANGED TO ORAL LASIX HYPOKALEMIA - ON ADMISSION IMPROVED - MONITOR LABS PERIODICALLY. HYPERTENSION - RESTARTED CARDIZEM ON ADMISSION ESOPHAGEAL REFLUX - RESTARTED PPI ON ADMISSION. CHRONIC STEROID USE - BACK DOWN TO OUTPATIENT PREDNISONE LEVELS. ANEMIA - STABLE - CHECK LABS VITAMIN D DEFICIENCY - LOW VITAMIN D - VITAMIN D2 50,000 UNITS WEEKLY - AND VITAMIN D3 1000 UNITS TWICE DAILY. LEG PAIN - ULTRASOUND NEGATIVE FOR DVT ATRIAL FIBRILLATION - CHRONIC - PT ON CARDIZEM - CANNOT BE ON ANTICOAGS/NOACS, ASPIRIN DUE TO HEMARTHROSIS. HOLD OFF ON LOVENOX FOR DVT PROPHYLAXIS DUE TO HX OF SEVERE INTRAARTICULAR JOINT HEMARTHROSIS AFTER LAST TIME SHE GOT LOVENOX. Clinical Quality Measures DVT/VTE Risk/Contraindication: Risk Factor Score Per Nursin RFS Level Per Nursing on Admit: 4+=Very High Contraindications-Pharm: Other *list below* Other: HX OF INTRAARTICULAR HEMARTHROSIS WITH LAST LOVENOX INJECTIONS WOODY CARBONE MD Dec 11, 2017 10:46
[2017-12-11] MEDS ORDERED: POLYETHYLENE GLYCOL 17 GM (MIRALAX) PACK PO NR (11:00)
[2017-12-11] MEDS ORDERED: FUROSEMIDE 20 MG (LASIX) TAB PO NR (11:00)
[2017-12-11] MEDS: fentaNYL PATCH 25 MCG (DURAGESIC) TD SCH (11:59)
[2017-12-11] MEDS: CATHETER FLUSH 10 ML SYR IV SCH ×3 (12:00→21:25)
[2017-12-11] MEDS: FENTANYL 25 MCG PATCH REMOVAL TP SCH (12:00)
[2017-12-11] MEDS: CALCIUM CARB + VIT D 600 MG (CALCARB + D) TAB PO SCH (17:13)
[2017-12-11] MEDS: FUROSEMIDE 40 MG (LASIX) TAB PO SCH (17:13)
[2017-12-11] MEDS: ASCORBIC ACID (VIT C) 500 MG TABLET PO SCH (17:14)
[2017-12-11 17:50] VITALS: BP 128/80
[2017-12-11] MEDS: POVIDONE (BETADINE) 10% SOLN 240 ML BTL TOP SCH (19:37)
[2017-12-11] MEDS: SILVER SULFADIAZINE 400 GM CREAM TOP SCH (19:37)
[2017-12-11] MEDS: POLYETHYLENE GLYCOL 17 GM (MIRALAX) PACK PO SCH (20:25)
[2017-12-11] MEDS: predniSONE 5 MG TAB PO SCH (20:25)
[2017-12-11] MEDS ORDERED: POLYETHYLENE GLYCOL 17 GM (MIRALAX) PACK PO SCH (21:00)
[2017-12-12 05:04] VITALS: BP 94/60
[2017-12-12 05:06] LABS: HEMOGLOBIN 11.3 G/DL (11.5-16.0); MEAN PLATELET VOLUME 8.8 FL (7.4-10.4); RED BLOOD COUNT 3.48 10^6/uL (4.35-5.85); RED CELL DISTRIBUTION WIDTH 12.6 % (10.0-14.5); WHITE BLOOD COUNT 6.3 10^3/uL (4.3-11.0)
[2017-12-12] MEDS: CALCIUM CARB + VIT D 600 MG (CALCARB + D) TAB PO SCH ×2 (05:13→16:59)
[2017-12-12 05:29] LABS: ALANINE AMINOTRANSFERASE 12 U/L (0-55); ALBUMIN 3.1 GM/DL (3.2-4.5); ALKALINE PHOSPHATASE 57 U/L (40-136); BILIRUBIN,TOTAL 0.5 MG/DL (0.1-1.0); BUN/CREATININE RATIO 55; CALCIUM 9.3 MG/DL (8.5-10.1); CARBON DIOXIDE 30 MMOL/L (21-32); CHLORIDE 94 MMOL/L (98-107); CREATININE SERUM 0.78 MG/DL (0.60-1.30); GFR ESTIMATED > 60; GLUCOSE 87 MG/DL (70-105); POTASSIUM 4.1 MMOL/L (3.6-5.0); SODIUM 137 MMOL/L (135-145); TOTAL PROTEIN 5.9 GM/DL (6.4-8.2)
[2017-12-12] MEDS: PANTOPRAZOLE 40 MG (PROTONIX) TAB PO SCH (06:07)
[2017-12-12] MEDS: FUROSEMIDE 40 MG (LASIX) TAB PO SCH ×2 (06:07→16:59)
[2017-12-12] MEDS: CATHETER FLUSH 10 ML SYR IV SCH ×3 (06:08→22:19)
[2017-12-12] MEDS: KCL 10 MEQ TAB (MICRO K) PO SCH ×3 (08:03→20:42)
[2017-12-12] MEDS: VITAMIN D3 1,000 UNITS (CHOLECALCIFEROL) TABLET PO SCH ×2 (08:03→20:42)
[2017-12-12] MEDS: DILTIAZEM 180 MG (CARDIZEM CD) CAP PO SCH (08:07)
[2017-12-12] MEDS: DICLOFENAC 1% GEL 100 GM (VOLTAREN) TUBE TOP SCH ×4 (08:07→20:47)
--- NOTE | 2017-12-12 09:31 | Physical Therapy Daily Note ---
PT Daily Note-Current Subjective Pt is laying Supine in bed upon arrival. Pt agrees to PT. Mental Status Patient Orientation: Person, Place, Time, Situation Attachments: Other-See Comments (Cervical brace) Transfers Functional [place] Measure 0=Not Assessed/NA 4=Minimal Assistance 1=Total Assistance 5=Supervision or Setup 2=Maximal Assistance 6=Modified [place] 3=Moderate Assistance 7=Complete IndependenceIRFPAI Quality Coding Scale 6 Independent with activity with or without an assistive device 5 Patient requires set up or clean up by helper. Patient completes activity by themselves 4 Supervision or touching assist (CGA). [place] provide cues , steadying assist 3 The helper provides less than half the effort to complete the activity 2 The helper provides more than half the effort to complete the activity 1 Dependent. The helper does all the effort to complete an activity 7 Patient refused to complete or attempt activity 9 The patient did not perform the activity before the current illness or injury 88 Not attempted due to Medical conditions or safety concerns Scootin Rollin Supine to/from Sit: 5 Sit to/from Stand: 5 Sit to Lying (QC): 5 Sit to Stand (QC): 5 Weight Bearing Right Lower Extremity: Right Full Weight Bearing Left Lower Extremity: Left Full Weight Bearing Gait Training Does the Patient Walk?: Yes Distance (FIM): 1=up to 49 ft Distance: 30' Walk 10 feet (QC): 5 Gait Level of Assist: 5 Gait Persons Needed: 1 Gait Assistive Device: Walker 4 Wheeled Wheelchair Training Does the Pt Use a Wheelchair?: No Exercises Supine Ex: Ankle pumps, Quad Set, Glut sets, Heel Slides, Straight leg raise, Hip abd/add Supine Reps: 15 Treatments Pt transfers at [facility] using 4WW. Pt ambulates to restroom then back to Supine in bed since recliner is uncomfortable to sit in for Ex. Pt completes Supine Ex in bed with one short rest break. Pt resting in bed with all needs met. Assessment Current Status: Good Progress Pt is getting stronger and more independent with transfers and mobility. Pt will still fatigue although this is chronic for years. PT Short Term Goals Short Term Goals Time Frame: Dec 10, 2017 Transfers (B,C,W/C) (FIM): 4 Gait (FIM): 4 Gait Distance Comment: 150' Gait Level of Assist: 4 Gait Assistive Device: Walker 4 Wheeled PT On Awake Counselor Goals On Awake Counselor Goals PT Senior Care Goals Time Frame: Dec 24, 2017 Transfers (B,C,W/C) (FIM): 5 Sit to Lying (QC): 4 Lying-Sitting on Side/Bed(QC): 4 Sit to Stand (QC): 4 Rollin Roll Left to Right (QC): 4 Chair/Rkm-ss-Wqhfy Xfer(QC): 4 Car Transfer (QC): 4 Does the Patient Walk: Yes Gait (FIM): 5 Distance: 250' Walk 10 feet (QC): 4 Walk 10ft-Uneven Surface(QC): 4 Walk 50ft with 2 Turns (QC): 4 Walk 150 ft (QC): 4 Gait Level of Assist: 5 Gait Assistive Device: Walker 4 Wheeled Stairs (FIM): 2 # of Steps: 4 1 Step (curb) (QC): 4 4 Steps (QC): 4 Stairs Level Of Assist: 5 Picking up an Object (QC): 4 PT Plan Problem List Problem List: Activity Tolerance Treatment/Plan Treatment Plan: Continue Plan of Care Treatment Plan: Bed Mobility, Concurrent Therapy, Education, Functional Activity Shamika, Functional Strength, Group Therapy, Gait, Safety, Therapeutic Exercise, Transfers Treatment Duration: Dec 24, 2017 Frequency: At least 5 of 7 days/Wk (IRF) Estimated Hrs Per Day: 1.5 hours per day Patient and/or Family Agrees t: Yes Safety Risks/Education Patient Education: Correct Positioning, Safety Issues Teaching Recipient: Patient Teaching Methods: Discussion Response to Teaching: Verbalize Understanding Time/GCodes Time In: 810 Time Out: 835 Total Billed Treatment Time: 25 Total Billed Treatment 1, FA (8m) & EX (17m) G Codes Necessary: DANDRE Valdez PTA Dec 12, 2017 09:31
[2017-12-12 13:00] VITALS: BP 111/74
[2017-12-12] MEDS: ASCORBIC ACID (VIT C) 500 MG TABLET PO SCH (16:58)
[2017-12-12 17:30] VITALS: BP 113/66
[2017-12-12] MEDS: POLYETHYLENE GLYCOL 17 GM (MIRALAX) PACK PO SCH (20:38)
[2017-12-12] MEDS: predniSONE 5 MG TAB PO SCH (20:42)
[2017-12-12] MEDS: SILVER SULFADIAZINE 400 GM CREAM TOP SCH (20:50)
[2017-12-12] MEDS: POVIDONE (BETADINE) 10% SOLN 240 ML BTL TOP SCH (20:50)
[2017-12-13 05:52] VITALS: BP 139/81
[2017-12-13] MEDS: PANTOPRAZOLE 40 MG (PROTONIX) TAB PO SCH (06:40)
[2017-12-13] MEDS: CALCIUM CARB + VIT D 600 MG (CALCARB + D) TAB PO SCH (06:41)
[2017-12-13] MEDS: FUROSEMIDE 40 MG (LASIX) TAB PO SCH ×2 (06:41→16:46)
[2017-12-13] MEDS: CATHETER FLUSH 10 ML SYR IV SCH ×3 (06:43→22:05)
[2017-12-13] MEDS: DILTIAZEM 180 MG (CARDIZEM CD) CAP PO SCH (08:09)
[2017-12-13] MEDS: KCL 10 MEQ TAB (MICRO K) PO SCH ×3 (08:09→20:17)
[2017-12-13] MEDS: VITAMIN D3 1,000 UNITS (CHOLECALCIFEROL) TABLET PO SCH ×2 (08:10→20:17)
[2017-12-13] MEDS: fentaNYL PATCH 100 MCG (DURAGESIC) TD SCH (08:11)
[2017-12-13] MEDS: DICLOFENAC 1% GEL 100 GM (VOLTAREN) TUBE TOP SCH ×4 (08:15→20:23)
[2017-12-13] MEDS: FENTANYL 100 MCG PATCH REMOVAL TP SCH (08:15)
[2017-12-13] MEDS: ASCORBIC ACID (VIT C) 500 MG TABLET PO SCH (16:46)
[2017-12-13 17:12] VITALS: BP 118/71
[2017-12-13] MEDS: POLYETHYLENE GLYCOL 17 GM (MIRALAX) PACK PO SCH (20:16)
[2017-12-13] MEDS: predniSONE 5 MG TAB PO SCH (20:17)
[2017-12-13] MEDS: POVIDONE (BETADINE) 10% SOLN 240 ML BTL TOP SCH (21:00)
[2017-12-13] MEDS: SILVER SULFADIAZINE 400 GM CREAM TOP SCH (21:00)
[2017-12-14 05:40] VITALS: BP 123/75
[2017-12-14] MEDS: CATHETER FLUSH 10 ML SYR IV SCH ×3 (06:34→20:23)
[2017-12-14] MEDS: FUROSEMIDE 40 MG (LASIX) TAB PO SCH ×2 (06:34→17:43)
[2017-12-14] MEDS: PANTOPRAZOLE 40 MG (PROTONIX) TAB PO SCH (06:34)
[2017-12-14] MEDS: VITAMIN D3 1,000 UNITS (CHOLECALCIFEROL) TABLET PO SCH ×2 (08:39→20:21)
[2017-12-14] MEDS: KCL 10 MEQ TAB (MICRO K) PO SCH ×3 (08:39→20:21)
[2017-12-14] MEDS: DILTIAZEM 180 MG (CARDIZEM CD) CAP PO SCH (08:40)
[2017-12-14] MEDS: DICLOFENAC 1% GEL 100 GM (VOLTAREN) TUBE TOP SCH ×4 (08:40→20:22)
--- NOTE | 2017-12-14 08:55 | Progress Note ---
Subjective Date Seen by a Provider: Dec 14, 2017 Time Seen by a Provider: 08:45 Subjective/Events-last exam PT REPORTS THAT SHE IS FEELING MUCH BETTER, CONCERNED ABOUT KEEPING THE SWELLING OFF OF HER ARMS AND LEGS. SHE STATES THAT SHE IS WONDERING ABOUT ZIPPERED COMPRESSION SOCKS, HER FAMILY HELPS TO PLACE COMPRESSION STOCKINGS DUE TO HER SEVERE OA OF SHOULDERS AND DECREASED STRENGTH IN HER HANDS. STAFF REPORTS THAT SHE IS MOVING BETTER, AMBULATING WITHOUT ASSISTANCE WITH HER 4 WHEELED WALKER. Review of Systems General: Fatigue Pulmonary: No Dyspnea, No Cough Cardiovascular: Edema (IMPROVED); No: Chest Pain, Palpitations Musculoskeletal: shoulder pain, arm pain, back pain, leg pain Neurological: Weakness WOUND ON LEFT MEDIAL CALF Objective Exam Last Set of Vital Signs Vital Signs Date Time Temp Pulse Resp B/P (MAP) Pulse Ox O2 Delivery O2 Flow Rate FiO2 12/14/17 05:40 97.4 78 18 123/75 (91) 98 Room Air Capillary Refill : I&O Intake and Output 12/14/17 00:00 Intake Total 1800 ml Output Total 2150 ml Balance -350 ml Intake Oral 1800 ml Output Urine Total 2150 ml # Bowel Movements 3 General: Alert, Oriented X3, Cooperative, No Acute Distress HEENT: Atraumatic, EOMI, Mucous Memb Moist/[place] Neck: Supple, No JVD Lungs: Clear to Auscultation Heart: Regular Rate Abdomen: Normal Bowel Sounds, Soft, No Tenderness Extremities: Other (NO EDEMA BILATERAL UPPER EXTREMITIES AND HAND, IMPROVED EDEMA BILATERAL LOWER EXTREMITIES, COMPRESSION WRAPS IN PLACE) Neuro: Cranial Nerves 3-12 NL Psych/Mental Status: Mental Status NL, Mood NL Assessment/Plan Assessment/Plan Assess & Plan/Chief Complaint INFLAMMATORY ARTHRITIS OF SHOULDERS, HANDS ARTHRITIS OF KNEES CHRONIC PAIN SYNDROME LYMPHEDEMA HYPERTENSION ESOPHAGEAL REFLUX CHRONIC STEROID USE ANEMIA VITAMIN D DEFICIENCY HYPOKALEMIA INFLAMMATORY ARTHRITIS OF SHOULDERS, HANDS AND ARTHRITIS OF KNEES - WITH CHRONIC PAIN SYNDROME: PT HAS BEEN ON MULTIPLE TREATMENTS WITH [facility] - HOWEVER EARLIER THIS YEAR - THEY TOLD HER THAT THERE IS NOTHING ELSE THAT THEY CAN DO AND HAVE RELEASED HER BACK INTO MY CARE - SHE WILL BE MAINTAINED ON CHRONIC PAIN MEDICATION OF FENTANYL AND PRN OXYCODONE AND DAILY STEROIDS - CONTINUE WITH PREDNISONE 5MG DAILY ONLY. LYMPHEDEMA - IMPROVED SYMPTOMS -CHANGED TO ORAL LASIX - WEIGHT STAYING STABLE, SWELLING CONTINUES TO BE IMPROVED ON THE CHANGED LASIX FROM IV TO ORAL, WE WILL MAINTAIN HER ON CURRENT REGIMEN LONG RENAL FUNCTION REMAINS STABLE. CHECK LABS TODAY - CMP, MAGNESIUM HYPOKALEMIA - ON ADMISSION IMPROVED - MONITOR LABS PERIODICALLY. - CHECK LABS TODAY HYPERTENSION - RESTARTED CARDIZEM ON ADMISSION ESOPHAGEAL REFLUX - RESTARTED PPI ON ADMISSION. CHRONIC STEROID USE - BACK DOWN TO OUTPATIENT PREDNISONE LEVELS. ANEMIA - STABLE - CHECK LABS VITAMIN D DEFICIENCY - LOW VITAMIN D - VITAMIN D2 50,000 UNITS WEEKLY - AND VITAMIN D3 1000 UNITS TWICE DAILY. LEG PAIN - ULTRASOUND NEGATIVE FOR DVT ATRIAL FIBRILLATION - CHRONIC - PT ON CARDIZEM - CANNOT BE ON ANTICOAGS/NOACS, ASPIRIN DUE TO HEMARTHROSIS. HOLD OFF ON LOVENOX FOR DVT PROPHYLAXIS DUE TO HX OF SEVERE INTRAARTICULAR JOINT HEMARTHROSIS AFTER LAST TIME SHE GOT LOVENOX. PLANNING ON DISCHARGE TO HOME TOMORROW - WILL RESTART HOME PHYSICAL THERAPY AND HAVE THE OT DOING LYMPHEDEMA THERAPY COME OUT TO HOUSE TO HELP THEM MAINTAIN HER DECREASED EDEMA. Clinical Quality Measures DVT/VTE Risk/Contraindication: Risk Factor Score Per Nursin RFS Level Per Nursing on Admit: 4+=Very High Contraindications-Pharm: Other *list below* Other: HX OF INTRAARTICULAR HEMARTHROSIS WITH LAST LOVENOX INJECTIONS WOODY CARBONE MD Dec 14, 2017 08:55
[2017-12-14] MEDS: fentaNYL PATCH 25 MCG (DURAGESIC) TD SCH (09:00)
[2017-12-14] MEDS ORDERED: FURO40TA4 PO (09:22)
[2017-12-14] MEDS ORDERED: POTA10TA10 PO (09:22)
[2017-12-14] MEDS ORDERED: DICL100G18 TOP (09:22)
--- NOTE | 2017-12-14 09:27 | D/C HH Face to Face Order ---
D/C Face to Face Orders Instructions for Patient Via [facility], Patient Instructions/FollowUp: 1 WK FOLLOW UP WITH [facility] Physician to follow Patient: RAF Discharge Diet for Home: Regular Diet Goals for Patient: IMPROVED STRENTHENING Patient Data-Allergies,Ht & Wt Patient Allergies: Coded Allergies: Penicillins (Verified Allergy, Unknown, 08/11/12) Sulfa (Sulfonamide Antibiotics) (Verified Allergy, Unknown, 09/17/16) Height (Feet): 5 Height (Inches): 7.00 Weight (Pounds): 143 Weight (Ounces): 1.6 Home Health Need/Face to Face Date of Face to Face: Dec 14, 2017 Clinical Findings: Generalized weakness and fatigue, Muscle weakness I have seen Pt [id number]: Yes Discharged To: Home Diagnosis/Conditions: LYMPHEDEMA HYPERTENSION ATRIAL FIBRILLATION CHRONIC PAIN DUE TO INFLAMMATORY ARTHRITIS Patient is Homebound due to: Dmitriy fall risk due to instabilty, Muscle weakness Homebound Status Due to the above stated illness, injury or surgical procedure (medical condition or diagnosis) and associated clinical findings, the patient is homebound because of his/her inability to leave home except with aid of a supportive device and/or person AND leaving the home requires a considerable and taxing effort or is medically contraindicated. Pt req the following assistanc: Walker Home Health Nursing Orders Home Health Services Order: Nursing Services, [employer] Trader-Evaluate & Treat, Physical Therapy-Evaluate & Treat Home Health Infusion Therapy Line Start Date: Dec 04, 2017 Line Start Time: 1429 Line Type: Midline Site Location: Arm-Upper Therapy Orders Therapy Orders: OT (must have SN or PT order) (FOR LYMPHEDEMA), Physical Therapy Therapy Specific Orders: Increase strength/endurance, Provider maintenance therapy Certify Stmt I certify that this patient is under my care and that I, a nurse practitioner or a physician; a pastoral assistant working with me, had a face to face encounter that - meets the physician face to face encounter requirements with this patient as dated. Medication List: Active Scripts Active Furosemide 40 Mg Tablet 40 Mg PO DAILY@ Voltaren (Diclofenac Sodium) 100 Gm Gel..gram. 4 Gm TOP QID APPLY TO SHOULDERS, UPPER BACK AND NECK Potassium Chloride 10 Meq Tablet.er 2 Tab PO TID Reported Iodine 2% Tincture (Iodine/Sodium Iodide) 30 Ml Tincture TP HS APPLY AROUND EDGE OF SORE ON BOTTOM OF RIGHT FOOT Ssd (Silver Sulfadiazine) 25 Gm Cream..g. TOP HS APPLY TO BOTTOM OF RIGHT FOOT Smoothlax (Polyethylene Glycol 3350) 17 Gm Powd.pack 17 Gm PO HS Vitamin C (Ascorbate Calcium) 500 Mg Tablet 500 Mg PO HS Bumetanide 0.5 Mg Tablet 0.5 Mg PO 1600 Prednisone 5 Mg Tablet 5 Mg PO 0130 Diltiazem 24Hr ER (Diltiazem HCl) 360 Mg Cap.er.24h 360 Mg PO DAILY Vitamin D3 (Cholecalciferol (Vitamin D3)) 1,000 Unit Capsule 1,000 Unit PO BID Calcium 600 + Vit D Caplet (Calcium Carbonate/Vitamin D3) 1 Each Tablet 1 Tab PO BID Cyanocobalamin Injection (Cyanocobalamin) 1,000 Mcg/Ml Inj 1,000 Mcg IJ MONTHLY Oxycodone HCl 30 Mg Tablet 15 Mg PO QID TAKES 1/2 OF A (30 MG) TABLET Fentanyl Patch 100 MCG (Fentanyl) 1 Each Patch.td72 100 Mcg TD Q72H Fentanyl Patch 25 MCG (Fentanyl) 1 Each Patch.td72 25 Mcg TD Q72H Pantoprazole Sodium 40 Mg Tablet.dr 40 Mg PO DAILY Furosemide 20 Mg Tablet 20 Mg PO 0130,1330 Prolia (Denosumab) 60 Mg/1 Ml Disp.syrin SQ EVERY 6 MONTHS My orders: Orders - WOODY CARBONE MD Cbc No Diff (12/14/17 09:09) Comprehensive Metabolic Panel (12/14/17 09:09) Magnesium (12/14/17 09:09) Nursing Communication (Order) (12/14/17 09:09) Consulting Physician D/C Order (12/15/17 ) WOODY CARBONE MD Dec 14, 2017 09:27
--- NOTE | 2017-12-14 09:35 | Physical Therapy Daily Note ---
PT Daily Note-Current Subjective Pt. feels so much better and is happy to be more functional and planning to DC Pain Numeric Pain Scale: 0-No Pain Mental Status Patient Orientation: Normal For Age Attachments: Other-See Comments (ortho shoes) Transfers Functional [place] Measure 0=Not Assessed/NA 4=Minimal Assistance 1=Total Assistance 5=Supervision or Setup 2=Maximal Assistance 6=Modified [place] 3=Moderate Assistance 7=Complete IndependenceIRFPAI Quality Coding Scale 6 Independent with activity with or without an assistive device 5 Patient requires set up or clean up by helper. Patient completes activity by themselves 4 Supervision or touching assist (CGA). Mobile provide cues , steadying assist 3 The helper provides less than half the effort to complete the activity 2 The helper provides more than half the effort to complete the activity 1 Dependent. The helper does all the effort to complete an activity 7 Patient refused to complete or attempt activity 9 The patient did not perform the activity before the current illness or injury 88 Not attempted due to Medical conditions or safety concerns Transfers (B, C, W/C) (FIM): 6 Scootin Rollin Roll Left to Right (QC): 6 Supine to/from Sit: 6 Sit to/from Stand: 6 Sit to Lying (QC): 6 Sit to Stand (QC): 6 Chair/Llk-bw-Puxnq Xfer(QC): 6 Bed to/from Chair: 6 Car Transfer (QC): 6 Weight Bearing Right Lower Extremity: Right Full Weight Bearing Left Lower Extremity: Left Full Weight Bearing Gait Training Does the Patient Walk?: Yes Gait (FIM): 6 Distance (FIM): 3=150 ft (200x4) Walk 10 feet (QC): 5 Walk 50 ft with 2 Turns(QC): 5 Walk 150 ft (QC): 5 Walking 10ft/uneven surface-QC: 5 Gait Level of Assist: 6 Gait Persons Needed: 0 Gait Assistive Device: Walker 4 Wheeled Stair Training pt. declines trial of stairs as she has not used stairs for years, has electric stair seat climber Balance Special Test Comments unsafe to trial bending over Exercises Supine Ex: Bridging, Ankle pumps, Quad Set, Rolling, Glut sets, Heel Slides, Short Arc Quads, Scooting, Straight leg raise (x3), Hip abd/add Supine Reps: 15 Seated Therapy Exercises: Ankle pumps, Sit to stand, Long arc quads, Hip flexion Seated Reps: 20 Treatments practiced sitting on seat on 4WW with brake on with safe technique Assessment Current Status: Good Progress meets goals, at PLOF PT Short Term Goals Short Term Goals Time Frame: Dec 10, 2017 Transfers (B,C,W/C) (FIM): 4 Gait (FIM): 4 Gait Distance Comment: 150' Gait Level of Assist: 4 Gait Assistive Device: Walker 4 Wheeled PT [facility] Goals Curtain Mender Goals PT Curtain Mender Goals Time Frame: Dec 24, 2017 Transfers (B,C,W/C) (FIM): 5 Sit to Lying (QC): 4 Lying-Sitting on Side/Bed(QC): 4 Sit to Stand (QC): 4 Rollin Roll Left to Right (QC): 4 Chair/Dfo-gz-Rtulm Xfer(QC): 4 Car Transfer (QC): 4 Does the Patient Walk: Yes Gait (FIM): 5 Distance: 250' Walk 10 feet (QC): 4 Walk 10ft-Uneven Surface(QC): 4 Walk 50ft with 2 Turns (QC): 4 Walk 150 ft (QC): 4 Gait Level of Assist: 5 Gait Assistive Device: Walker 4 Wheeled Stairs (FIM): 2 # of Steps: 4 1 Step (curb) (QC): 4 4 Steps (QC): 4 Stairs Level Of Assist: 5 Picking up an Object (QC): 4 PT Plan Treatment/Plan Treatment Plan: Continue Plan of Care Treatment Plan: Bed Mobility, Concurrent Therapy, Education, Functional Activity Shamika, Functional Strength, Group Therapy, Gait, Safety, Therapeutic Exercise, Transfers Treatment Duration: Dec 24, 2017 Frequency: At least 5 of 7 days/Wk (IRF) Estimated Hrs Per Day: 1.5 hours per day Patient and/or Family Agrees t: Yes Safety Risks/Education Patient Education: Gait Training, Transfer Techniques, Correct Positioning, W/ C Management, Disease Process, Safety Issues Teaching Recipient: Patient Teaching Methods: Demonstration, Discussion Response to Teaching: Verbalize Understanding, Return Demonstration, Reinforcement Needed Time/GCodes Time In: 800 Time Out: 930 Total Billed Treatment Time: 90 Total Billed Treatment 1,FA30m,EX30m,GT30m G Codes Necessary: JULIANNE Inman CAN DRAGGER Dec 14, 2017 09:34
[2017-12-14 12:38] LABS: HEMOGLOBIN 12.1 G/DL (11.5-16.0); RED BLOOD COUNT 3.73 10^6/uL (4.35-5.85); RED CELL DISTRIBUTION WIDTH 12.6 % (10.0-14.5); WHITE BLOOD COUNT 10.5 10^3/uL (4.3-11.0)
[2017-12-14 12:58] LABS: ALANINE AMINOTRANSFERASE 15 U/L (0-55); ALBUMIN 3.7 GM/DL (3.2-4.5); ALKALINE PHOSPHATASE 70 U/L (40-136); BILIRUBIN,TOTAL 0.4 MG/DL (0.1-1.0); BUN/CREATININE RATIO 48; CALCIUM 9.5 MG/DL (8.5-10.1); CARBON DIOXIDE 26 MMOL/L (21-32); CHLORIDE 98 MMOL/L (98-107); CREATININE SERUM 0.83 MG/DL (0.60-1.30); GFR ESTIMATED > 60; GLUCOSE 87 MG/DL (70-105); MAGNESIUM 1.9 MG/DL (1.8-2.4); POTASSIUM 4.6 MMOL/L (3.6-5.0); SODIUM 137 MMOL/L (135-145); TOTAL PROTEIN 6.9 GM/DL (6.4-8.2)
--- NOTE | 2017-12-14 13:01 | Occupational Ther Daily Note ---
OT Current Status-Daily Note Subjective Pt alert, lying in bed. Pt agrees to therapy. No c/o pain at this time. Mental Status/Objective Patient Orientation: Person, Place, Time, Mumbles Functional [place] Measure 0=Not Assessed/NA 4=Minimal Assistance 1=Total Assistance 5=Supervision or Setup 2=Maximal Assistance 6=Modified [place] 3=Moderate Assistance 7=Complete [place] Attachments: Other-See Comments (PICC) ADL-Treatment Pt able to retrieve clothing and maneuver 4WW around room/bathroom by self. Functional [place] Measure 0=Not Assessed/NA 4=Minimal Assistance 1=Total Assistance 5=Supervision or Setup 2=Maximal Assistance 6=Modified [place] 3=Moderate Assistance 7=Complete IndependenceIRFPAI Quality Coding Scale 6 Independent with activity with or without an assistive device 5 Patient requires set up or clean up by helper. Patient completes activity by themselves 4 Supervision or touching assist (CGA). [place] provide cues , steadying assist 3 The helper provides less than half the effort to complete the activity 2 The helper provides more than half the effort to complete the activity 1 Dependent. The helper does all the effort to complete an activity 7 Patient refused to complete or attempt activity 9 The patient did not perform the activity before the current illness or injury 88 Not attempted due to Medical conditions or safety concerns Eating (FIM): 5 (Dentures. Due to decrease in ROM of B hands pt requires assist to open containers/packages. Uses regular utensils to eat with.) Eating (QC): 5 Grooming (FIM): 7 (Pt uses sink/counter for support when completing grooming.) Oral Hygiene (QC): 6 Bathing (FIM): 4 (Using grabbar, hand held shower, shower bench and long handle sponge pt complete shower. Assist to lift hand held shower off/on ramsey and manipulate temperature. Assist to dry lower legs, buttocks and back of upper arms.) Bathing Location: L Arm, R Arm, L Upper Leg, R Upper Leg, L Lower Leg ( including foot), R Lower Leg (including foot), Chest, Abdomen, Buttocks, Perineal Area Shower/Bathe Self (QC): 3 Upper Body (FIM): 3 (Pt is able to place hands into sleeves then assist to pull up arms, over head and down back. Pt is able to doff shirt by self. Assist to adjust bra and hook in back.) Upper Body Dressing (QC): 3 Lower Body Dressing (FIM): 3 (Pt is able to doff pants and slippers using narcotics and vice detective. Assist to doff/don socks. Using narcotics and vice detective pt is able to don underwear. Assist to don pants on over lymphedema wrap. Pt is able to hike pants up/ down over hips.) Lower Body Dressing (QC): 3 On/Off Footwear (QC): 1 Toileting (FIM): 6 (Using elevated seat over toilet, grabbars and 4WW pt is able to manipulate clothing and cleanse self.) Toileting Hygiene (QC): 6 Transfers (B, C, W/C) (FIM): 6 (Elevated surface for sit to stand needed. Pt able to complete transfers using 4WW.) Toilet/Commode Transfer (FIM): 6 (Using elevated seat, grabbars and 4WW pt able to complete.) Toilet Transfer (QC): 6 Shower Transfer(FIM): 6 (Using grabbar, 4WW and elevated shower chair pt is able to complete. Safety concerns.) Brought DONG hose for pt. Pt stated that these were not the DONG hose she had at home. Left hose in room. Completed lymphedema wraps on B LE's. 4 wraps applied from toes to upper thigh, B LE. Ointment and Betadine applied to R foot area. Bandage applied to L calf wound. After therapy, pt lying in bed with visitor and nrsg present. Call light/phone in reach. All needs met in room. OT Short Term Goals Short Term Goals Transfers (B,C,W/C) (FIM): 4 1=Demonstrate adherence to instructed precautions during ADL tasks. 2=Patient will verbalize/demonstrate understanding of assistive devices/ modifications for ADL. 3=Patient will improve strength/tolerance for activity to enable patient to perform ADL's. OT Chcf Goals Chcf Goals Time Frame: Dec 17, 2017 Eating (FIM): 6 (not met) Eating (QC): 6 (not met) Groomin (met) Oral Hygiene (QC): 5 (met) Bathing(FIM): 5 (not met) Bathing Location: L Arm, R Arm, L Upper Leg, R Upper Leg, L Lower Leg ( including foot), R Lower Leg (including foot), Chest, Abdomen, Buttocks, Perineal Area Shower/Bathe Self (QC): 5 (not met) Toileting(FIM): 6 (met) Toileting Hygiene (QC): 6 (met) Transfers (B,C,W/C) (FIM): 6 (met) Toilet/Commode Transfer(FIM): 6 (met) Toilet/Commode Transfer (QC): 6 (met) Pt. does not shower at home, and does not dress self. Therefore, these will not be goals to achieve in this setting. However, OT will assist pt. with spongebath and will provide dressing assist. Additional Goals: 1-Demonstrate ADL Tasks, 2-Verbalize Understanding, 3- ImproveStrength/Shamika 1=Demonstrate adherence to instructed precautions during ADL tasks. 2=Patient will verbalize/demonstrate understanding of assistive devices/ modifications for ADL. 3=Patient will improve strength/tolerance for activity to enable patient to perform ADL's. OT Education/Plan Discharge Recommendations Plan/Recommendations: Continue POC Treatment Plan/Plan of Care Patient would benefit from OT for education, treatment and training to promote independence in ADL's, mobility, safety and/or upper extremity function for ADL' s. Plan of Care: ADL Retraining, Functional Mobility, Group Exercise/Act as Ind, UE Funct Exercise/Act Treatment Duration: Dec 17, 2017 Frequency: At least 5 of 7 days/Wk (IRF) Estimated Hrs Per Day: 1.5 hours per day Agreement: Yes Rehab Potential: Good Time/GCodes Start Time: 10:15 Stop Time: 12:15 Total Time Billed (hr/min): 120 Billed Treatment Time 1 visit-ADL 8 (120 min) ORA GLEASON Dec 14, 2017 13:01
[2017-12-14] MEDS: FENTANYL 25 MCG PATCH REMOVAL TP SCH (13:34)
[2017-12-14] MEDS: ASCORBIC ACID (VIT C) 500 MG TABLET PO SCH (17:43)
--- NOTE | 2017-12-14 17:51 | PM & R (SOAP) Progress Note ---
Subjective This was a face to face visit with the patient. Date Seen by Provider: Dec 14, 2017 Time Seen by Provider: 17:45 Subjective/Events-last exam Patient was seen in her room this evening Patients states that she has lost > than 35 LBS Peripheral edema much improved Patient Modified Independent for transfers Date Identified: Dec 14, 2017 Time Identified: 17:45 Medication Intervention: Discharge meds reviewed Objective Physician Exam Last Set of Vital Signs Vital Signs Date Time Temp Pulse Resp B/P (MAP) Pulse Ox O2 Delivery O2 Flow Rate FiO2 12/14/17 08:56 Room Air 12/14/17 05:40 97.4 78 18 123/75 (91) 98 Capillary Refill : I&O Intake and Output 12/14/17 00:00 Intake Total 1800 ml Output Total 2150 ml Balance -350 ml Intake Oral 1800 ml Output Urine Total 2150 ml # Bowel Movements 3 General: Alert, Oriented X3, Cooperative, No Acute Distress HEENT: Atraumatic, EOMI, Mucous Memb Moist/[place] Neck: Supple, No JVD Lungs: Clear to Auscultation Heart: Regular Rate Abdomen: Normal Bowel Sounds, Soft, No Tenderness Extremities: Other (NO EDEMA BILATERAL UPPER EXTREMITIES AND HAND, IMPROVED EDEMA BILATERAL LOWER EXTREMITIES, COMPRESSION WRAPS IN PLACE) Neuro: Cranial Nerves 3-12 NL Psych/Mental Status: Mental Status NL, Mood NL Results Lab Data Laboratory Tests 12/12/17 04:50: White Blood Count 6.3, Red Blood Count 3.48L, Hemoglobin 11.3L, Hematocrit 34L, Mean Corpuscular Volume 98, Mean Corpuscular Hemoglobin 33, Mean Corpuscular Hemoglobin Concent 33, Red Cell Distribution Width 12.6, Platelet Count 287, Mean Platelet Volume 8.8, Sodium Level 137, Potassium Level 4.1, Chloride Level 94L, Carbon Dioxide Level 30, Anion Gap 13, Blood Urea Nitrogen 43H, Creatinine 0.78, Estimat Glomerular Filtration Rate > 60, BUN/Creatinine Ratio 55, Glucose Level 87, Calcium Level 9.3, Corrected Calcium 10.0, Total Bilirubin 0.5, Aspartate Amino Transf (AST/SGOT) 11, Alanine Aminotransferase (ALT/SGPT) 12, Alkaline Phosphatase 57, Total Protein 5.9L, Albumin 3.1L 12/14/17 12:20: White Blood Count 10.5, Red Blood Count 3.73L, Hemoglobin 12.1, Hematocrit 36, Mean Corpuscular Volume 97, Mean Corpuscular Hemoglobin 32, Mean Corpuscular Hemoglobin Concent 33, Red Cell Distribution Width 12.6, Platelet Count 342, Mean Platelet Volume 9.0, Sodium Level 137, Potassium Level 4.6, Chloride Level 98, Carbon Dioxide Level 26, Anion Gap 13, Blood Urea Nitrogen 40H, Creatinine 0.83, Estimat Glomerular Filtration Rate > 60, BUN/Creatinine Ratio 48, Glucose Level 87, Calcium Level 9.5, Corrected Calcium 9.7, Total Bilirubin 0.4, Aspartate Amino Transf (AST/SGOT) 15, Alanine Aminotransferase (ALT/SGPT) 15, Alkaline Phosphatase 70, Total Protein 6.9, Albumin 3.7, Magnesium Level 1.9 Assessment/Plan Assessment and Plan OA with chronic pain Lymphedema much improved with wraps and diuresis A FIB controlled with med Stage 2 wound from blister burst left leg Hypomagnesemia replaced Plan Discharge tomorrow to home with HHC F/U with PCP Co-Morbidities that are continuing to impact the rehab process: (include details ) BERE BEAN MD Dec 14, 2017 17:51
[2017-12-14 18:32] VITALS: BP 123/77
[2017-12-14] MEDS: POVIDONE (BETADINE) 10% SOLN 240 ML BTL TOP SCH (18:34)
[2017-12-14] MEDS: SILVER SULFADIAZINE 400 GM CREAM TOP SCH (18:34)
[2017-12-14] MEDS: predniSONE 5 MG TAB PO SCH (20:21)
[2017-12-14] MEDS: POLYETHYLENE GLYCOL 17 GM (MIRALAX) PACK PO SCH (20:22)
[2017-12-15 05:10] VITALS: BP 137/72
[2017-12-15] MEDS: FUROSEMIDE 40 MG (LASIX) TAB PO SCH (06:09)
[2017-12-15] MEDS: CATHETER FLUSH 10 ML SYR IV SCH ×2 (06:09→13:20)
[2017-12-15] MEDS: PANTOPRAZOLE 40 MG (PROTONIX) TAB PO SCH (06:09)
[2017-12-15] MEDS: DILTIAZEM 180 MG (CARDIZEM CD) CAP PO SCH (08:49)
[2017-12-15] MEDS: VITAMIN D3 1,000 UNITS (CHOLECALCIFEROL) TABLET PO SCH (08:49)
[2017-12-15] MEDS: DICLOFENAC 1% GEL 100 GM (VOLTAREN) TUBE TOP SCH ×2 (08:49→13:28)
[2017-12-15] MEDS: KCL 10 MEQ TAB (MICRO K) PO SCH ×2 (08:49→13:26)
--- NOTE | 2017-12-15 08:54 | Progress Note ---
Subjective Date Seen by a Provider: Dec 15, 2017 Time Seen by a Provider: 08:50 Subjective/Events-last exam PT REPORTS THAT SHE IS FEELING SIGNIFICANTLY BETTER, SHE IS READY TO GO HOME TODAY. SHE STATES THAT HER LEG WOUND IS LESS PAINFUL, HER SWELLING IS IMPROVED AND SHE IS NOT SHORT OF BREATH. Review of Systems General: No Fatigue, No Malaise HEENT: No Head Aches Pulmonary: No Dyspnea, No Cough Cardiovascular: Edema (IMPROVED); No: Chest Pain, Palpitations Gastrointestinal: No: Nausea Neurological: Weakness Objective Exam Last Set of Vital Signs Vital Signs Date Time Temp Pulse Resp B/P (MAP) Pulse Ox O2 Delivery O2 Flow Rate FiO2 12/15/17 05:10 98.2 107 18 137/72 (93) 95 Room Air Capillary Refill : I&O Intake and Output 12/15/17 00:00 Intake Total 1340 ml Output Total 1100 ml Balance 240 ml Intake Oral 1340 ml Output Urine Total 1100 ml # Voids 6 # Bowel Movements 3 General: Alert, Oriented X3, Cooperative, No Acute Distress HEENT: Atraumatic, EOMI, Mucous Memb Moist/[place] Neck: Supple, No JVD Lungs: Clear to Auscultation Heart: Regular Rate Abdomen: Normal Bowel Sounds, Soft, No Tenderness Extremities: Other (NO EDEMA BILATERAL UPPER EXTREMITIES AND HAND, TRACE EDEMA BILATERAL LOWER EXTREMITIES - WOUND ON MEDIAL LEFT CALF DECREASED IN SIZE BY 1/2 , GOOD GRANULATION TISSUE PRESENT) Neuro: Cranial Nerves 3-12 NL Psych/Mental Status: Mental Status NL, Mood NL Results Lab Laboratory Tests 12/14/17 12:20: White Blood Count 10.5, Red Blood Count 3.73L, Hemoglobin 12.1, Hematocrit 36, Mean Corpuscular Volume 97, Mean Corpuscular Hemoglobin 32, Mean Corpuscular Hemoglobin Concent 33, Red Cell Distribution Width 12.6, Platelet Count 342, Mean Platelet Volume 9.0, Sodium Level 137, Potassium Level 4.6, Chloride Level 98, Carbon Dioxide Level 26, Anion Gap 13, Blood Urea Nitrogen 40H, Creatinine 0.83, Estimat Glomerular Filtration Rate > 60, BUN/Creatinine Ratio 48, Glucose Level 87, Calcium Level 9.5, Corrected Calcium 9.7, Magnesium Level 1.9, Total Bilirubin 0.4, Aspartate Amino Transf (AST/SGOT) 15, Alanine Aminotransferase ( ALT/SGPT) 15, Alkaline Phosphatase 70, Total Protein 6.9, Albumin 3.7 Assessment/Plan Assessment/Plan Assess & Plan/Chief Complaint INFLAMMATORY ARTHRITIS OF SHOULDERS, HANDS ARTHRITIS OF KNEES CHRONIC PAIN SYNDROME LYMPHEDEMA HYPERTENSION ESOPHAGEAL REFLUX CHRONIC STEROID USE ANEMIA VITAMIN D DEFICIENCY HYPOKALEMIA WOUND MEDIAL LEFT CALF INFLAMMATORY ARTHRITIS OF SHOULDERS, HANDS AND ARTHRITIS OF KNEES - WITH CHRONIC PAIN SYNDROME: PT HAS BEEN ON MULTIPLE TREATMENTS WITH [facility] - HOWEVER EARLIER THIS YEAR - THEY TOLD HER THAT THERE IS NOTHING ELSE THAT THEY CAN DO AND HAVE RELEASED HER BACK INTO MY CARE - SHE WILL BE MAINTAINED ON CHRONIC PAIN MEDICATION OF FENTANYL AND PRN OXYCODONE AND DAILY STEROIDS - CONTINUE WITH PREDNISONE 5MG DAILY ONLY. DISCHARGE TO HOME TODAY ON PREVIOUS HOME REGIMEN LYMPHEDEMA - IMPROVED SYMPTOMS -CHANGED TO ORAL LASIX - WEIGHT STAYING STABLE, SWELLING CONTINUES TO BE IMPROVED ON THE CHANGED LASIX FROM IV TO ORAL, WE WILL MAINTAIN HER ON CURRENT REGIMEN LONG RENAL FUNCTION REMAINS STABLE. CONTINUE WITH COMPRESSION TO LEGS, WILL ORDER HOME HEALTH WITH NURSING TO MONITOR WOUND ON CALF X 1 WEEK THEN WILL RESUME HOME HEALTH WITH ONLY THERAPY STAFF. HYPOKALEMIA - RESOLVED WITH POTASSIUM 20MEQ TID HYPERTENSION - RESTARTED CARDIZEM ON ADMISSION ESOPHAGEAL REFLUX - RESTARTED PPI ON ADMISSION. CHRONIC STEROID USE - BACK DOWN TO OUTPATIENT PREDNISONE LEVELS. ANEMIA - STABLE. VITAMIN D DEFICIENCY - LOW VITAMIN D - VITAMIN D2 50,000 UNITS WEEKLY - AND VITAMIN D3 1000 UNITS TWICE DAILY. LEG PAIN - ULTRASOUND NEGATIVE FOR DVT ATRIAL FIBRILLATION - CHRONIC - PT ON CARDIZEM - CANNOT BE ON ANTICOAGS/NOACS, ASPIRIN DUE TO HEMARTHROSIS. HOLD OFF ON LOVENOX FOR DVT PROPHYLAXIS DUE TO HX OF SEVERE INTRAARTICULAR JOINT HEMARTHROSIS AFTER LAST TIME SHE GOT LOVENOX. PLANNING ON DISCHARGE TO HOME TODAY - WILL RESTART HOME PHYSICAL THERAPY AND HAVE THE OT DOING LYMPHEDEMA THERAPY COME OUT TO HOUSE TO HELP THEM MAINTAIN HER DECREASED EDEMA. Clinical Quality Measures DVT/VTE Risk/Contraindication: Risk Factor Score Per Nursin RFS Level Per Nursing on Admit: 4+=Very High Contraindications-Pharm: Other *list below* Other: HX OF INTRAARTICULAR HEMARTHROSIS WITH LAST LOVENOX INJECTIONS WOODY CARBONE MD Dec 15, 2017 08:54
--- NOTE | 2017-12-15 09:51 | PM & R (SOAP) Progress Note ---
Subjective This was a face to face visit with the patient. Date Seen by Provider: Dec 15, 2017 Time Seen by Provider: 07:45 Subjective/Events-last exam Patient was seen in her room this AM All set for discharge today DR Silva in to see patient Date Identified: Dec 15, 2017 Time Identified: 07:45 Medication Intervention: Discharge meds reviewed Objective Physician Exam Last Set of Vital Signs Vital Signs Date Time Temp Pulse Resp B/P (MAP) Pulse Ox O2 Delivery O2 Flow Rate FiO2 12/15/17 09:00 Room Air 12/15/17 05:10 98.2 107 18 137/72 (93) 95 Capillary Refill : I&O Intake and Output 12/15/17 00:00 Intake Total 1340 ml Output Total 1100 ml Balance 240 ml Intake Oral 1340 ml Output Urine Total 1100 ml # Voids 6 # Bowel Movements 3 General: Alert, Oriented X3, Cooperative, No Acute Distress HEENT: Atraumatic, EOMI, Mucous Memb Moist/[place] Neck: Supple, No JVD Lungs: Clear to Auscultation Heart: Regular Rate Abdomen: Normal Bowel Sounds, Soft, No Tenderness Extremities: Other (NO EDEMA BILATERAL UPPER EXTREMITIES AND HAND, TRACE EDEMA BILATERAL LOWER EXTREMITIES - WOUND ON MEDIAL LEFT CALF DECREASED IN SIZE BY 1/2 , GOOD GRANULATION TISSUE PRESENT) Neuro: Cranial Nerves 3-12 NL Psych/Mental Status: Mental Status NL, Mood NL Results Lab Data Laboratory Tests 12/14/17 12:20: White Blood Count 10.5, Red Blood Count 3.73L, Hemoglobin 12.1, Hematocrit 36, Mean Corpuscular Volume 97, Mean Corpuscular Hemoglobin 32, Mean Corpuscular Hemoglobin Concent 33, Red Cell Distribution Width 12.6, Platelet Count 342, Mean Platelet Volume 9.0, Sodium Level 137, Potassium Level 4.6, Chloride Level 98, Carbon Dioxide Level 26, Anion Gap 13, Blood Urea Nitrogen 40H, Creatinine 0.83, Estimat Glomerular Filtration Rate > 60, BUN/Creatinine Ratio 48, Glucose Level 87, Calcium Level 9.5, Corrected Calcium 9.7, Magnesium Level 1.9, Total Bilirubin 0.4, Aspartate Amino Transf (AST/SGOT) 15, Alanine Aminotransferase ( ALT/SGPT) 15, Alkaline Phosphatase 70, Total Protein 6.9, Albumin 3.7 Assessment/Plan Assessment and Plan Home today with family and HHC F/U with PCP see orders Co-Morbidities that are continuing to impact the rehab process: (include details ) BERE BEAN MD Dec 15, 2017 09:51
--- NOTE | 2017-12-15 10:15 | Therapy Team Discharge Summary ---
Therapy Discharge Summary Discharge Recommendations Date of Discharge Therapy D/C Recommendations: Home w/ Family Support, Occupational Therapy Home Care, Scheduled Assistance Physical Therapy Patient came to rehab with lymphedema. Upon evaluation patient performed bed mobility with mod assist, transfers with min assist, car transfer mod assist, ambulated 120' with a 4 wheeled walker with CGA, did not perform steps at this time. Patient has been performing bed mobility and transfer training, balance and endurance training, functional strengthening, stair training, gait training , and education. Patient now performs bed mobility and transfers with mod I, car transfer with mod I, ambulates 200' with a 4 wheeled walker with mod I ( including 50' with at least 2 turns of 90 degrees and 10' over an uneven surface ), but declines stairs (has an electric stair climber at home). Patient is discharging from this facility today and will be discharged from PT at this time. Occupational Therapy Decreased Activ Tolerance, Decreased UE Strength, Dependent Transfers, Edema, Impaired Bed Mobility, Impaired Coordination, Impaired Funct Balance, Impaired I ADL's, Impaired Self-Care Skills, Restricted Funct UE ROM PT Fpc Goals Test Engineering Technician Goals PT Test Engineering Technician Goals Time Frame: Dec 24, 2017 Transfers (B,C,W/C) (FIM): 5 Roll Left to Right (QC): 4 Sit to Lying (QC): 4 Lying-Sitting on Side/Bed(QC): 4 Sit to Stand (QC): 4 Chair/Lge-jt-Kzpus Xfer(QC): 4 Car Transfer (QC): 4 Does the Patient Walk: Yes Gait (FIM): 5 Distance: 250' Walk 10 feet (QC): 4 Walk 10ft-Uneven Surface(QC): 4 Walk 50ft with 2 Turns (QC): 4 Walk 150 ft (QC): 4 Gait Level of Assist: 5 Gait Assistive Device: Walker 4 Wheeled Stairs (FIM): 2 # of Steps: 4 1 Step (curb) (QC): 4 4 Steps (QC): 4 Stairs Level Of Assist: 5 Picking up an Object (QC): 4 OT Test Engineering Technician Goals Test Engineering Technician Goals Time Frame: Dec 17, 2017 Eating (FIM): 6 (not met) Eating (QC): 6 (not met) Oral Hygiene (QC): 5 (met) Grooming(FIM): 5 (met) Bathing(FIM): 5 (not met) Bathing Location: L Arm, R Arm, L Upper Leg, R Upper Leg, L Lower Leg ( including foot), R Lower Leg (including foot), Chest, Abdomen, Buttocks, Perineal Area Shower/Bathe Self (QC): 5 (not met) Toileting(FIM): 6 (met) Toileting Hygiene (QC): 6 (met) Transfers (B,C,W/C) (FIM): 6 (met) Toilet/Commode Transfer(FIM): 6 (met) Toilet/Commode Transfer (QC): 6 (met) Pt. does not shower at home, and does not dress self. Therefore, these will not be goals to achieve in this setting. However, OT will assist pt. with spongebath and will provide dressing assist. Additional Goals: 1-Demonstrate ADL Tasks, 2-Verbalize Understanding, 3- ImproveStrength/[place] 1=Demonstrate adherence to instructed precautions during ADL tasks. 2=Patient will verbalize/demonstrate understanding of assistive devices/ modifications for ADL. 3=Patient will improve strength/tolerance for activity to enable patient to perform ADL's. Speech Test Engineering Technician Goals Fpc Goals no LTGs established as skilled ST not indicated. GARETT CLEMENT PT Dec 15, 2017 10:15
--- NOTE | 2017-12-15 13:47 | Therapy Team Discharge Summary ---
Therapy Discharge Summary Discharge Recommendations Date of Discharge 12-15-17 Therapy D/C Recommendations: Home w/ Family Support, Occupational Therapy Home Care, Scheduled Assistance Occupational Therapy Pt. has been seen by occupational therapy to increase overall strength and independence with daily tasks. Pt. has met goals of grooming, toileting, and transfers. However, has not met any other goals. Pt. is going to transfer home back with family support and will have continued assistance with these tasks with family. Recommend continued care for lymphedema support and swelling , as well as ADLS as needed with prior baseline level. Pt. has all needed equipment. Decreased Activ Tolerance, Decreased UE Strength, Dependent Transfers, Edema, Impaired Bed Mobility, Impaired Coordination, Impaired Funct Balance, Impaired I ADL's, Impaired Self-Care Skills, Restricted Funct UE ROM PT Family Protection Specialist Goals Family Protection Specialist Goals PT Mcfp Goals Time Frame: Dec 24, 2017 Transfers (B,C,W/C) (FIM): 5 Roll Left to Right (QC): 4 Sit to Lying (QC): 4 Lying-Sitting on Side/Bed(QC): 4 Sit to Stand (QC): 4 Chair/Xqq-ra-Uoseo Xfer(QC): 4 Car Transfer (QC): 4 Does the Patient Walk: Yes Gait (FIM): 5 Distance: 250' Walk 10 feet (QC): 4 Walk 10ft-Uneven Surface(QC): 4 Walk 50ft with 2 Turns (QC): 4 Walk 150 ft (QC): 4 Gait Level of Assist: 5 Gait Assistive Device: Walker 4 Wheeled Stairs (FIM): 2 # of Steps: 4 1 Step (curb) (QC): 4 4 Steps (QC): 4 Stairs Level Of Assist: 5 Picking up an Object (QC): 4 OT Mcfp Goals Family Protection Specialist Goals Time Frame: Dec 17, 2017 Eating (FIM): 6 (not met) Eating (QC): 6 (not met) Oral Hygiene (QC): 5 (met) Grooming(FIM): 5 (met) Bathing(FIM): 5 (not met) Bathing Location: L Arm, R Arm, L Upper Leg, R Upper Leg, L Lower Leg ( including foot), R Lower Leg (including foot), Chest, Abdomen, Buttocks, Perineal Area Shower/Bathe Self (QC): 5 (not met) Toileting(FIM): 6 (met) Toileting Hygiene (QC): 6 (met) Transfers (B,C,W/C) (FIM): 6 (met) Toilet/Commode Transfer(FIM): 6 (met) Toilet/Commode Transfer (QC): 6 (met) Pt. does not shower at home, and does not dress self. Therefore, these will not be goals to achieve in this setting. However, OT will assist pt. with spongebath and will provide dressing assist. Additional Goals: 1-Demonstrate ADL Tasks, 2-Verbalize Understanding, 3- ImproveStrength/Shamika 1=Demonstrate adherence to instructed precautions during ADL tasks. 2=Patient will verbalize/demonstrate understanding of assistive devices/ modifications for ADL. 3=Patient will improve strength/tolerance for activity to enable patient to perform ADL's. Speech Family Protection Specialist Goals Mcfp Goals no LTGs established as skilled ST not indicated. COURTNEY MILES OT Dec 15, 2017 13:47
[2017-12-15 16:24] VITALS: BP 137/72
== END 2017-12-15 16:29 | disposition home health service (06) | DRG 554 ==
PROVIDERS: ADMIT Physical Medicine & Rehabilitation; ATTEND Physical Medicine & Rehabilitation
DX: M19.011 Primary osteoarthritis, right shoulder (principal); M19.012 Primary osteoarthritis, left shoulder; M19.041 Primary osteoarthritis, right hand; M19.042 Primary osteoarthritis, left hand; M17.0 Bilateral primary osteoarthritis of knee; I89.0 Lymphedema, not elsewhere classified; G89.4 Chronic pain syndrome; E87.6 Hypokalemia; E83.42 Hypomagnesemia; G62.9 Polyneuropathy, unspecified; I48.91 Unspecified atrial fibrillation; E78.00 Pure hypercholesterolemia, unspecified; K21.9 Gastro-esophageal reflux disease without esophagitis; I10 Essential (primary) hypertension; D64.9 Anemia, unspecified; E55.9 Vitamin D deficiency, unspecified; Z79.52 Long term (current) use of systemic steroids; Z87.891 Personal history of nicotine dependence; Z23 Encounter for immunization
CPT/HCPCS: 36415; 76937; 80048; 80053; 82306; 82962; 83735; 85027; 90686; 93005; 93970

== ENCOUNTER 2017-12-25 09:44 | Outpatient (CLI) | payer MEDICARE, OTHER ==
[~2017-12-25] VITALS: Ht 170.2 cm; Wt 65.9 kg
[~2017-12-25 09:44] MED LIST changes: +ASCO-262 PO; +BUME0.5T3 PO; +DICL100G18 TOP; +DILT360C36 PO; +FURO40TA4 PO; +IODI30TI TP; +POLY17PO27 PO; +POTA10TA10 PO; +PRED5TAB PO; +SILV25CR21 TOP
[2017-12-25 10:00] VITALS: BP 126/88
[2017-12-25] MEDS ORDERED: FUROSEMIDE 40 MG/4 ML INJ (LASIX) IV NR (10:00)
[2017-12-25] MEDS: POTASSIUM CL 10 MEQ/50 ML IVPB (PRE-MIX) IV SCH ×2 (10:36→11:35)
--- NOTE | 2017-12-29 16:23 | Physician Query-Final Dx ---
DIDI SLOAN 12/29/17 1623: Clinic Account Progress/Dx Physician Query: Please give diagnosis Please document diagnosis for IV Lasix. Date of Service Dec 25, 2017 at 09:44 WOODY CARBONE MD 12/30/17 1303: Clinic Account Progress/Dx DIAGNOSIS: Diagnosis LYMPHEDEMA DIDI SLOAN Dec 29, 2017 16:23 WOODY CARBONE MD Dec 30, 2017 13:03
== END 2017-12-25 13:00 | disposition home or self-care (01) ==
LOC: SDC 09:44
PROVIDERS: ATTEND Family Medicine
DX: I89.0 Lymphedema, not elsewhere classified (principal)
CPT/HCPCS: 96360; 96365; 96366; 96375

== ENCOUNTER → 2017-12-31 | Outpatient (CLI) | payer MEDICARE, OTHER ==
[~2017-12-31] VITALS: Ht 170.2 cm
[~2017-12-31] MED LIST changes: +DEXTROSE IV SCH; +FUROSEMIDE IV SCH; +NS IV 1000 ML 1,000 ML IV SCH
[2017-12-31 08:10] VITALS: BP 140/94
[2017-12-31 08:43] LABS: BILIRUBIN,URINE NEGATIVE (NEGATIVE); CLARITY,URINE SLIGHTLY CLOUDY; COLOR,URINE YELLOW; GLUCOSE, URINE (UA) NEGATIVE (NEGATIVE); KETONES,URINE NEGATIVE (NEGATIVE); LEUKOCYTE ESTERASE ,URINE 3+ (NEGATIVE); NITRITE,URINE NEGATIVE (NEGATIVE); PH,URINE 6 (5-9); PROTEIN,URINE 1+ (NEGATIVE); UROBILINOGEN,URINE 1 MG/DL (NORMAL)
[2017-12-31 09:35] LABS: BACTERIA,URINE TRACE /HPF; RBC,URINE 0-2 /HPF; SQUAMOUS EPITHELIAL CELL,UR 0-2 /HPF; WBC,URINE 50-100 /HPF
== END ==
LOC: SDC 07:55
PROVIDERS: ATTEND Family Medicine
DX: I89.0 Lymphedema, not elsewhere classified (principal); R82.998 Other abnormal findings in urine
CPT/HCPCS: 81000; 87077; 87088; 87186; 96365; 96366

== ENCOUNTER 2018-01-25 16:34 | Inpatient (IN) | payer MEDICARE, OTHER ==
[~2018-01-25] VITALS: Ht 170.2 cm; Wt 65.4 kg
[~2018-01-25 16:34] MED LIST changes: -DEXTROSE IV SCH; -FUROSEMIDE IV SCH; -NS IV 1000 ML 1,000 ML IV SCH
--- OUTSIDE RECORDS SUMMARY | 2018-01-25 16:40 | XMS REPORT | Clinical Summary ---
Author Author [facility] Organization [facility] Address Unknown Phone Unavailable Care Team Providers Care Science Editor Name Role Phone PCP Unavailable Source Comments Some departments are not documenting in the electronic medical record. If you do not see the information that you expected, contact Release of Information in the Health Information Management department at [phone] for further assistance in locating additional records.[facility] Allergies Not on File Current Medications Not on file Active Problems Not on file Social History Tobacco Use Types Packs/Day Years Used Date Never Assessed Sex Assigned at Date Recorded Not on file Last Filed Vital Signs Not on file Plan of Treatment Health Maintenance Due Date Last Done Comments PHYSICAL (COMPREHENSIVE) 1942 EXAM DTAP/TDAP VACCINES (1 - 1952 Tdap) SHINGLES RECOMBINANT 1984 VACCINE (1 of 2) OSTEOPOROSIS 08/10/1999 SCREENING/MONITORING PNEUMONIA (PCV13/PPSV23) 08/10/1999 VACCINES (1 of 2 - PCV13) INFLUENZA VACCINE 09/30/2017 Results Not on filefrom Last 3 Months
--- OUTSIDE RECORDS SUMMARY | 2018-01-25 16:49 | XMS REPORT | CCD ---
Author Author [facility] Organization [facility] Address [address] [place] [address] Phone Care Team Providers Care [employer] Product Consultant Name Role Phone PP Unavailable CCM Unavailable Summary Purpose Interface Exchange Insurance Providers Payer name Policy type / Coverage type Covered green party ID Effective Begin Date Effective End Date [employer] [employer] Medicare Part B [id number] 2017 Unknown AET[employer] Medicare Part B [id number] Unknown Family history Father Diagnosis Age At [...] Unknown Retired 07/12/[address]: 4803768 Quit over 10 years ago 1967 07/12/2014 Alcohol history Unknown occasionally drinks alcohol 07/12/2014 Allergies, Adverse Reactions, Alerts Substance Reaction Codes Entered Date Inactivated Date Status * NO KNOWN FOOD ALLERGIES Unknown 07/12/2014 No Inactive Date Active Penicillin Unknown 07/12/2014 No Inactive Date Active SULFA(SULFONAMIDE ANTIBIOTICS) Unknown 07/12/2014 No Inactive Date Active Past Medical History Illness Codes Condition Status Onset Date Resolved Date Generalized edema ICD- 9: 782.3 ICD-10: R60.1 Active 11/27/2017 Unknown Lymphedema, not elsewhere classified ICD-9: 457.1 ICD-10: I89.0 Active 11/17/2016 Unknown Chronic pain syndrome ICD-9: 338.4 ICD-10: G89.4 Active 10/07/2016 Unknown Essential (primary) hypertension ICD-9: 401.1 ICD-10: I10 Active 09/29/2017 Unknown Localized edema ICD-9 : 782.3 ICD-10: R60.0 Active 08/10/2014 Unknown Pain in left shoulder ICD-9: 719.41 ICD-10: M25.512 Active 07/04/2016 Unknown Pain in right shoulder ICD-9: 719.41 ICD-10: M25.511 Active 10/02/2016 Unknown Primary osteoarthritis, 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 ICD-10: M19.012 Active 10/07/2016 Unknown Primary osteoarthritis, right shoulder ICD-9: 715.91 ICD-10: M19.011 Active 10/07/2016 Unknown Rheumatoid arthritis without rheumatoid factor, right shoulder ICD-9: 714.0 ICD-10: M06.011 Active 03/12/2017 Unknown Rheumatoid arthritis without rheumatoid factor, left shoulder ICD-9: 714.0 ICD-10: M06.012 Active 03/12/2017 Unknown Anemia, unspecified ICD-9: 285.9 ICD-10: D64.9 Active 10/21/2017 Unknown Chronic atrial fibrillation ICD-9: 427.31 ICD-10: I48.2 Active 06/17/2017 Unknown Hemarthrosis, left shoulder ICD-9: 719.11 ICD-10: M25.012 Active 06/01/2017 Unknown Essential (primary) hypertension ICD-9: 401.9 ICD-10: I10 Active 08/10/2014 Unknown Hemarthrosis, right shoulder ICD-9: 719.11 ICD-10: M25.011 Active 09/08/2016 Unknown Hypomagnesemia ICD-9: 275.2 ICD-10: E83.42 Active 07/30/2016 Unknown Encounter for immunization ICD-9: V04.81 ICD-10: Z23 Active 11/18/2015 Unknown Urge incontinence ICD- 9: 788.31 ICD-10: N39.41 Active 11/05/2016 Unknown Other iron deficiency anemias ICD-9: 280.1 ICD-10: D50.8 Active 04/08/2015 Unknown Primary osteoarthritis, right hand ICD-9: 715.94 ICD-10: M19.041 Active 10/07/2016 Unknown Spondylosis without myelopathy or radiculopathy, cervical region ICD-9: 721.0 ICD-10: M47.812 Active 11/18/2015 Unknown Other chronic pain ICD -9: 338.29 ICD-10: G89.29 Active 07/11/2014 Unknown Iron deficiency anemia, unspecified ICD-9: 280.9 ICD-10: D50.9 Active 04/09/2015 Unknown Presbycusis, bilateral ICD-9: 388.01 ICD-10: H91.13 Active 10/07/2016 Unknown Primary osteoarthritis, left hand ICD-9: 715.94 ICD-10: M19.042 Active 10/07/2016 Unknown Low back pain ICD-9: 724.2 ICD-10: M54.5 Active 09/12/2016 Unknown Sacroiliitis, not elsewhere classified ICD-9: 720.2 ICD-10: M46.1 Active 09/12/2016 Unknown Vitamin D deficiency, unspecified ICD-9: 268.9 ICD-10: E55.9 Active 07/11/2014 Unknown Nocturia ICD-9: 788.43 ICD-10: R35.1 Active 07/14/2016 Unknown Spinal stenosis, cervicothoracic region ICD-9: 723.0 ICD-10: M48.03 Active 01/28/2016 Unknown Torticollis ICD-9: 723.5 ICD-10: M43.6 Active 07/30/2016 Unknown Encounter for screening mammogram for malignant [...] Problems Condition Codes Effective Dates Condition Status Generalized edema ICD- 9: 782.3 ICD-10: R60.1 11/27/2017 Active Lymphedema, not elsewhere classified ICD-9: 457.1 ICD-10: I89.0 11/17/2016 Active Chronic pain syndrome ICD-9: 338.4 ICD-10: G89.4 10/07/2016 Active Essential (primary) hypertension ICD-9: 401.1 ICD-10: I10 09/29/2017 Active Localized edema ICD-9 : 782.3 ICD-10: R60.0 08/10/2014 Active Pain in left shoulder ICD-9: 719.41 ICD-10: M25.512 07/04/2016 Active Pain in right shoulder ICD-9: 719.41 ICD-10: M25.511 10/02/2016 Active Primary osteoarthritis, 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 ICD-10: M19.012 10/07/2016 Active Primary osteoarthritis, right shoulder ICD-9: 715.91 ICD-10: M19.011 10/07/2016 Active Rheumatoid arthritis without rheumatoid factor, right shoulder ICD-9: 714.0 ICD-10: M06.011 03/12/2017 Active Rheumatoid arthritis without rheumatoid factor, left shoulder ICD-9: 714.0 ICD-10: M06.012 03/12/2017 Active Anemia, unspecified ICD-9: 285.9 ICD-10: D64.9 10/21/2017 Active Chronic atrial fibrillation ICD-9: 427.31 ICD-10: I48.2 06/17/2017 Active Hemarthrosis, left shoulder ICD-9: 719.11 ICD-10: M25.012 06/01/2017 Active Essential (primary) hypertension ICD-9: 401.9 ICD-10: I10 08/10/2014 Active Hemarthrosis, right shoulder ICD-9: 719.11 ICD-10: M25.011 09/08/2016 Active Hypomagnesemia ICD-9: 275.2 ICD-10: E83.42 07/30/2016 Active Encounter for immunization ICD-9: V04.81 ICD-10: Z23 11/18/2015 Active Urge incontinence ICD- 9: 788.31 ICD-10: N39.41 11/05/2016 Active Other iron deficiency anemias ICD-9: 280.1 ICD-10: D50.8 04/08/2015 Active Primary osteoarthritis, right hand ICD-9: 715.94 ICD-10: M19.041 10/07/2016 Active Spondylosis without myelopathy or radiculopathy, cervical region ICD-9: 721.0 ICD-10: M47.812 11/18/2015 Active Other chronic pain ICD -9: 338.29 ICD-10: G89.29 07/11/2014 Active Iron deficiency anemia, unspecified ICD-9: 280.9 ICD-10: D50.9 04/09/2015 Active Presbycusis, bilateral ICD-9: 388.01 ICD-10: H91.13 10/07/2016 Active Primary osteoarthritis, left hand ICD-9: 715.94 ICD-10: M19.042 10/07/2016 Active Low back pain ICD-9: 724.2 ICD-10: M54.5 09/12/2016 Active Sacroiliitis, not elsewhere classified ICD-9: 720.2 ICD-10: M46.1 09/12/2016 Active Vitamin D deficiency, unspecified ICD-9: 268.9 ICD-10: E55.9 07/11/2014 Active Nocturia ICD-9: 788.43 ICD-10: R35.1 07/14/2016 Active Spinal stenosis, cervicothoracic region ICD-9: 723.0 ICD-10: M48.03 01/28/2016 Active Torticollis ICD-9: 723.5 ICD-10: M43.6 07/30/2016 Active Encounter for screening mammogram for malignant [...] Start Date Stop Date Status Fill Instructions oxycodone 30 mg tablet RxNorm: 8892178 1/2 Tablet(s) PO Q6 03/14/2018 Active metolazone 10 mg tablet RxNorm: 403934 1 Tablet(s) PO QAM as needed uncontrolled edema 01/14/2018 03/14/2018 Active fentanyl 100 mcg/hr transdermal patch RxNorm: 139757 1 Patch TD Q72H use with 25mcg/hr patch 01/14/2018 02/12/2018 Active fentanyl 25 mcg/hr transdermal patch RxNorm: 988446 1 Patch TD Q72H use with 100mcg patch for a total of 125mcg daily 01/14/2018 02/12/2018 Active metolazone 10 mg tablet RxNorm: 263792 1 Tablet(s) PO every other day as needed uncontrolled edema 01/07/2018 01/13/2018 Inactive metolazone 10 mg tablet RxNorm: 533060 1 Tablet(s) PO every other day as needed uncontrolled edema 01/07/2018 01/06/2018 Inactive Cipro 500 mg tablet RxNorm: 061152 1 Tablet(s) PO BID 201701/05/2018 Inactive Cipro 500 mg tablet RxNorm: 931417 1 Tablet(s) PO BID 201701/15/2018 Inactive Cardizem CD 360 mg capsule,extended release RxNorm: 525146 1 Capsule(s) PO daily 01/05/2018 05/04/2018 Active potassium chloride ER 10 mEq tablet,extended release(part/ cryst) RxNorm: 4586508 2 Capsule(s) PO TID when taking lasix 01/05/2018 05/04/2018 Active potassium chloride ER 10 mEq capsule,extended release RxNorm: 362740 Capsule(s) TAKE 1 CAPSULE BY MOUTH TWICE DAILY WHEN TAKING LASIX (FUROSEMIDE) 11/27/2017 No Stop Date Active potassium chloride ER 10 mEq capsule,extended release RxNorm: 490838 Capsule(s) TAKE 1 CAPSULE BY MOUTH TWICE DAILY WHEN TAKING LASIX (FUROSEMIDE) 11/27/2017 11/26/2017 Inactive fentanyl 25 mcg/hr transdermal patch RxNorm: 035953 1 Patch TD Q72H use with 100mcg patch for a total of 125mcg daily 11/27/2017 12/26/2017 Inactive bumetanide 0.5 mg tablet RxNorm: 854890 1 Tablet(s) PO daily 12/23/2017 Inactive in the afternoon x 3 days then as needed per Dr Silva fentanyl 100 mcg/hr transdermal patch RxNorm: 196792 1 Patch TD Q72H use with 25mcg/hr patch 11/27/2017 12/26/2017 Inactive Lasix 20 mg tablet RxNorm: 739633 TAKE 1 TABLET BY MOUTH TWICE DAILY 10/29/2017 No Stop Date Active oxycodone 30 mg tablet RxNorm: 4209660 1/2 Tablet(s) PO Q6 12/27/2017 Inactive fentanyl 100 mcg/hr transdermal patch RxNorm: 789225 1 Patch TD Q72H use with 25mcg/hr patch 10/29/2017 11/26/2017 Inactive fentanyl 25 mcg/hr transdermal patch RxNorm: 997983 1 Patch TD Q72H use with 100mcg patch for a total of 125mcg daily 10/29/2017 11/26/2017 Inactive pantoprazole 40 mg tablet,delayed release RxNorm: 042466 Tablet(s) Take 1 tablet by mouth daily 10/21/2017 04/18/2018 Active - Ref: [id number] potassium chloride ER 10 mEq capsule,extended release RxNorm: 138732 TAKE 1 CAPSULE BY MOUTH TWICE DAILY WHEN TAKING LASIX (FUROSEMIDE) 10/09/2017 11/26/2017 Inactive fentanyl 25 mcg/hr transdermal patch RxNorm: 368195 1 Patch TD Q72H use with 100mcg patch for a total of 125mcg daily 10/01/2017 10/28/2017 Inactive fentanyl 100 mcg/hr transdermal patch RxNorm: 246945 1 Patch TD Q72H use with 25mcg/hr patch 10/01/2017 10/28/2017 Inactive potassium chloride ER 10 mEq tablet,extended release(part/ cryst) RxNorm: 3715631 1 Capsule(s) PO BID when taking lasix 09/22/2017 01/04/2018 Inactive fentanyl 100 mcg/hr transdermal patch RxNorm: 121287 1 Patch TD Q72H use with 25mcg/hr patch 08/31/2017 09/29/2017 Inactive Kenalog 40 mg/mL suspension for injection RxNorm: 1474637 1 Milliliter(s) Inj 08/31/2017 08/31/2017 Inactive fentanyl 25 mcg/hr transdermal patch RxNorm: 501451 1 Patch TD Q72H use with 100mcg patch for a total of 125mcg daily 08/31/2017 09/29/2017 Inactive oxycodone 30 mg tablet RxNorm: 7464467 1/2 Tablet(s) PO Q6 04/201710/28/2017 Inactive cyanocobalamin (vit B-12) 1,000 mcg/mL injection solution RxNorm: 848700 1 Milliliter(s) Inj monthly 08/21/201708/15 Active please provide her with syringe/needle for injection cyanocobalamin (vit B-12) 1,000 mcg/mL injection solution RxNorm: 765923 1 Milliliter(s) Inj monthly 08/21/201708/20 Inactive please provide her with syringe/needle for injection Kenalog 40 mg/mL suspension for injection RxNorm: 2712092 2 Milliliter(s) Inj 1mL in each shoulder 08/21/2017 08/21/2017 Inactive cyanocobalamin (vit B-12) 1,000 mcg/mL injection solution RxNorm: 915047 1 Milliliter(s) Inj monthly 08/21/201708/20 Inactive please provide her with syringe/needle for injection Kenalog 40 mg/mL suspension for injection RxNorm: 3453655 2 Milliliter(s) Inj UD 08/12/2017 08/12/2017 Inactive fentanyl 25 mcg/hr transdermal patch RxNorm: 297796 1 Patch TD Q72H use with 100mcg patch for a total of 125mcg daily 08/05/2017 08/30/2017 Inactive fentanyl 100 mcg/hr transdermal patch RxNorm: 481787 1 Patch TD Q72H use with 25mcg/hr patch 08/05/2017 08/30/2017 Inactive Kenalog 40 mg/mL suspension for injection RxNorm: 9544737 2 Milliliter(s) Inj 1mL per shoulder 08/05/2017 08/05/2017 Inactive clindamycin HCl 150 mg capsule RxNorm: 365023 1 Capsule(s) PO QID Dr Shultz prescribed 07/23/2017 07/29/2017 Inactive prednisone 5 mg tablet RxNorm: 726247 1 Tablet(s) PO daily 11/201707/03/2018 Active fentanyl 25 mcg/hr transdermal patch RxNorm: 384164 1 Patch TD Q72H use with 100mcg patch for a total of 125mcg daily 07/01/2017 07/30/2017 Inactive Lasix 20 mg tablet RxNorm: 243919 1 Tablet(s) PO BID 201710/28/2017 Inactive fentanyl 100 mcg/hr transdermal patch RxNorm: 340878 1 Patch TD Q72H use with 25mcg/hr patch 07/01/2017 07/30/2017 Inactive potassium chloride ER 10 mEq capsule,extended release RxNorm: 671704 1 Capsule(s) PO BID when taking lasix 07/01/20172017 Inactive oxycodone 30 mg tablet RxNorm: 3259393 1/2 Tablet(s) PO Q6 08/22/2017 Inactive fentanyl 100 mcg/hr transdermal patch RxNorm: 604220 1 Patch TD Q72H use with 25mcg/hr patch 05/07/2017 06/05/2017 Inactive fentanyl 25 mcg/hr transdermal patch RxNorm: 750398 1 Patch TD Q72H use with 100mcg patch for a total of 125mcg daily 05/07/2017 06/05/2017 Inactive fentanyl 100 mcg/hr transdermal patch RxNorm: 347456 1 Patch TD Q72H 04/08/2017 05/06/2017 Inactive fentanyl 25 mcg/hr transdermal patch RxNorm: 230390 1 Patch TD Q72H use with 100mcg patch for a total of 125mcg daily 04/08/2017 05/06/2017 Inactive Kenalog 40 mg/mL suspension for injection RxNorm: 0218470 1.5 Milliliter(s) Inj 04/02/2017 04/02/2017 Inactive fentanyl 100 mcg/hr transdermal patch RxNorm: 907595 1 Patch TD Q72H 03/12/2017 04/07/2017 Inactive fentanyl 25 mcg/hr transdermal patch RxNorm: 627679 1 Patch TD Q72H use with 100mcg patch for a total of 125mcg daily 03/12/2017 04/07/2017 Inactive oxycodone 30 mg tablet RxNorm: 2493083 1/2 Tablet(s) PO Q6 09/201704/07/2017 Inactive cyanocobalamin (vit B-12) 1,000 mcg/mL injection syringe RxNorm: 440973 1 Milliliter(s) Inj monthly 02/16/2017 No Stop Date Active please provide with supplys needed for injection fentanyl 100 mcg/hr transdermal patch RxNorm: 027381 1 Patch TD Q72H 02/06/2017 03/07/2017 Inactive Myrbetriq 50 mg tablet,extended release RxNorm: 9470926 1 Tablet(s) PO QPM 12/11/2016 07/22/2017 Inactive oxycodone 30 mg tablet RxNorm: 2692268 1/2 Tablet(s) PO Q6 10/201601/06/2017 Inactive naproxen 500 mg tablet RxNorm: 837294 1 Tablet(s) PO BID Take 1 tablet by mouth two times daily as needed 12/08/201607/08 Inactive - First Attempt Ref: [id number] Myrbetriq 50 mg tablet,extended release RxNorm: 0839325 1 Tablet(s) PO QPM 11/17/2016 12/10/2016 Inactive fentanyl 100 mcg/hr transdermal patch RxNorm: 023398 1 Patch TD Q72H 11/12/2016 12/11/2016 Inactive Vesicare 10 mg tablet RxNorm: 310684 1 Tablet(s) PO QPM 201611/18/2016 Inactive oxycodone 10 mg tablet RxNorm: 3041758 1-2 Tablet(s) PO Q4 PRN as needed to take between 30mg dose if needed for extra pain control 201612/07/2016 Inactive fentanyl 75 mcg/hr transdermal patch RxNorm: 874280 1 TD Q72H 10/22/2016 11/10/2016 Inactive oxycodone 10 mg tablet RxNorm: 9012110 1-2 Tablet(s) PO Q4 PRN as needed to take between 30mg dose if needed for extra pain control 201611/04/2016 Inactive Kenalog 40 mg/mL suspension for injection RxNorm: 6264576 1 Milliliter(s) Inj 10/02/2016 10/02/2016 Inactive Kenalog 40 mg/mL suspension for injection RxNorm: 0386457 1 Milliliter(s) Inj 09/12/2016 09/12/2016 Inactive cyclobenzaprine 5 mg tablet RxNorm: 823610 1 Tablet(s) PO Q8 as needed muscle spasms 09/11/2016 07/22/2017 Inactive prednisone 10 mg tablets in a dose pack RxNorm: 464681 1 Tablet(s) PO UD 09/09/2016 06/23/2017 Inactive potassium chloride ER 10 mEq capsule,extended release RxNorm: 937168 1 Capsule(s) PO BID as needed when taking lasix 08/26/2016 06/30/2017 Inactive Lasix 20 mg tablet RxNorm: 864368 1 Tablet(s) PO BID daily x 10 days then as needed edema 08/26/2016 12/23/2016 Inactive naproxen 500 mg tablet RxNorm: 285820 Take 1 tablet by mouth two times daily as needed 08/18/2016 11/15/2016 Inactive - First Attempt Ref: [id number] Lasix 20 mg tablet RxNorm: 737370 1 Tablet(s) PO QAM daily x 10 days then as needed edema 08/18/2016 08/25/2016 Inactive Vesicare 5 mg tablet RxNorm: 575834 1 Tablet(s) PO QPM 201611/04/2016 Inactive potassium chloride ER 10 mEq capsule,extended release RxNorm: 479916 1 Capsule(s) PO QAM as needed when taking lasix 08/18/2016 08/25/2016 Inactive Myrbetriq 25 mg tablet,extended release RxNorm: 7022586 1 Tablet(s) PO QHS 07/14/2016 07/29/2016 Inactive pantoprazole 40 mg tablet,delayed release RxNorm: 906484 Take 1 tablet by mouth daily 06/30/2016 12/26/2016 Inactive - Ref: [id number] Embeda 20 mg-0.8 mg capsule, extend release, oral only RxNorm: 450925 1 Capsule(s ) PO daily 06/04/2016 06/03/2016 Inactive Embeda 20 mg-0.8 mg capsule, extend release, oral only RxNorm: 595176 1 Capsule(s ) PO daily 06/04/2016 07/01/2016 Inactive oxycodone 10 mg tablet RxNorm: 0021186 1 Tablet(s) PO QID as needed to take between 30mg dose if needed for extra pain control 201606/10/2016 Inactive oxycodone 30 mg tablet RxNorm: 8948874 1 Tablet(s) PO Q6 201611/04/2016 Inactive cyanocobalamin (vit B-12) 1,000 mcg/mL injection solution RxNorm: 118292 1 Milliliter(s) Inj monthly 02/22/201602/15 Inactive she also needs syringes/ needles for this solution QS oxycodone 30 mg tablet RxNorm: 8104491 1 Tablet(s) PO Q6 201503/19/2016 Inactive oxycodone 10 mg tablet RxNorm: 4572920 1 Tablet(s) PO QID as needed to take between 30mg dose if needed for extra pain control 201503/19/2016 Inactive oxycodone 10 mg tablet RxNorm: 2184571 1 Tablet(s) PO QID as needed to take between 30mg dose if needed for extra pain control 201502/18/2016 Inactive oxycodone 30 mg tablet RxNorm: 8694351 1 Tablet(s) PO Q6 201502/18/2016 Inactive pantoprazole 40 mg tablet,delayed release RxNorm: 679534 Take 1 tablet by mouth daily 01/22/2016 06/29/2016 Inactive - First Attempt Ref: [id number] oxycodone 30 mg tablet RxNorm: 1044427 1 Tablet(s) PO Q6 201501/28/2016 Inactive oxycodone 10 mg tablet RxNorm: 0355818 1 Tablet(s) PO QID as needed take between 20mg dose if needed for extra pain control 11/07/2015 12/06/2015 Inactive oxycodone 20 mg tablet RxNorm: 7638218 1 Tablet(s) PO Q6 as needed 11/07/2015 12/31/2015 Inactive doxycycline hyclate 100 mg tablet RxNorm: 707911 1 Tablet(s) PO BID 11/01/2015 11/10/2015 Inactive potassium chloride ER 10 mEq capsule,extended release RxNorm: 642440 1 Capsule(s) PO TIW as needed when taking lasix 09/04/2015 08/17/2016 Inactive Voltaren 1 % topical gel RxNorm: 655119 2 Gram(s) TOP QID 08/2909/03/2015 Inactive pa approved Voltaren 1 % topical gel RxNorm: 068121 2 Gram(s) TOP QID 08/0808/29/2015 Inactive naproxen 500 mg tablet RxNorm: 521806 1 Tablet(s) PO BID 201508/17/2016 Inactive naproxen 500 mg tablet RxNorm: 016083 1 Tablet(s) PO BID 201508/08/2015 Inactive doxycycline hyclate 100 mg tablet RxNorm: 718533 1 Tablet(s) PO BID do not take calcium/vitamin d while on antibiotic 07/18/2015 07/31/2015 Inactive Vitamin D2 50,000 unit capsule RxNorm: 317698 1 Capsule(s) PO QW 07/02/2015 11/18/2015 Inactive Premarin 0.3 mg tablet RxNorm: 038811 1 Tablet(s) PO daily 12/201505/09/2015 Inactive Premarin 0.3 mg tablet RxNorm: 459954 1 Tablet(s) PO daily 12/201503/17/2016 Inactive simvastatin 40 mg tablet RxNorm: 297426 1 Tablet(s) PO daily 03/17/2016 Inactive spironolactone 25 mg tablet RxNorm: 504080 TAKE ONE TABLET BY MOUTH DAILY 05/07/2015 05/27/2016 Inactive potassium chloride ER 10 mEq capsule,extended release RxNorm: 448443 1 Capsule(s) PO TIW as needed when taking lasix 04/17/2015 09/03/2015 Inactive alendronate 70 mg tablet RxNorm: 899501 1 Tablet(s) PO weekly QW 04/17/2015 07/01/2015 Inactive Vitamin D2 50,000 unit capsule RxNorm: 514945 1 Capsule(s) PO QW 03/30/2015 06/27/2015 Inactive Vitamin D2 50,000 unit capsule RxNorm: 404798 1 Capsule(s) PO QW 03/21/2015 03/29/2015 Inactive cyanocobalamin (vit B-12) 1,000 mcg/mL injection solution RxNorm: 977771 1 Milliliter(s) Inj monthly 03/19/201502/20 Inactive cyanocobalamin (vit B-12) 1,000 mcg/mL injection solution RxNorm: 954484 1 Milliliter(s) Inj monthly 03/16/201503/18 Inactive cyanocobalamin (vit B-12) 1,000 mcg/mL injection solution RxNorm: 201485 1 Milliliter(s) Inj monthly 03/16/201503/15 Inactive pantoprazole 40 mg tablet,delayed release RxNorm: 901637 1 Tablet(s) PO daily 03/05/2015 01/21/2016 Inactive Lasix 20 mg tablet RxNorm: 213267 1 Tablet(s) PO TIW as needed edema 02/08/2015 02/02/2016 Inactive oxycodone 10 mg tablet RxNorm: 7140468 1 Tablet(s) PO QID as needed take between 20mg dose if needed for extra pain control 11/09/2014 12/08/2014 Inactive oxycodone 20 mg tablet RxNorm: 8497045 1 Tablet(s) PO Q6 as needed 10/25/2014 11/06/2015 Inactive doxycycline hyclate 100 mg tablet RxNorm: 335045 1 Tablet(s) PO BID 10/23/2014 11/19/2014 Inactive Cipro 500 mg tablet RxNorm: 272547 1 Tablet(s) PO BID 201410/16/2014 Inactive Cipro 500 mg tablet RxNorm: 505549 1 Tablet(s) PO BID 201410/09/2014 Inactive oxycodone 20 mg tablet RxNorm: 3587571 1 Tablet(s) PO Q6 as needed 09/25/2014 10/24/2014 Inactive Lasix 20 mg tablet RxNorm: 053957 1 Tablet(s) PO TIW as needed edema 09/14/2014 01/11/2015 Inactive potassium chloride ER 10 mEq capsule,extended release RxNorm: 467512 1 Capsule(s) PO TIW as needed when taking lasix 09/14/2014 01/11/2015 Inactive doxycycline hyclate 100 mg tablet RxNorm: 039399 1 Tablet(s) PO BID 09/05/2014 09/14/2014 Inactive doxycycline hyclate 100 mg tablet RxNorm: 660624 1 Tablet(s) PO BID 09/05/2014 09/04/2014 Inactive oxycodone 20 mg tablet RxNorm: 2094160 1 Tablet(s) PO Q6 as needed 08/29/2014 09/24/2014 Inactive spironolactone 25 mg tablet RxNorm: 964430 1 Tablet(s) PO daily 08/11/2014 03/08/2015 Inactive oxycodone 20 mg tablet RxNorm: 4490710 1 Tablet(s) PO Q6 as needed 08/02/2014 08/28/2014 Inactive Vitamin D3 2,000 unit tablet RxNorm: 483171 1 Tablet(s) PO daily 07/14/2014 No Stop Date Active Vitamin D2 50,000 unit capsule RxNorm: 844940 1 Capsule(s) PO QW 07/14/2014 10/11/2014 Inactive Vitamin D2 50,000 unit capsule RxNorm: 461378 1 Capsule(s) PO QW 07/14/2014 07/13/2014 Inactive Prolia 60 mg/mL subcutaneous syringe RxNorm: 781871 Milliliter(s) SQ EVERY 6 MONTHS No Start Date Active Carafate 1 gram tablet RxNorm: 597800 1 Tablet(s) PO BID No Start Date Active Miralax oral RxNorm: 663290 oral No Start Date Active Stool Softener oral RxNorm: 31400 oral No Start Date Active Calcium + Vitamin D oral RxNorm: 4018 oral No Start Date Active naproxen 500 mg tablet RxNorm: 588965 1 Tablet(s) PO BID No Start Date 08/05/2015 Inactive oxycodone 20 mg tablet RxNorm: 9273289 1 Tablet(s) PO Q6 as needed No Start Date 08/01/2014 Inactive aspirin 81 mg tablet RxNorm: 761920 1 Tablet(s) PO daily No Start Date 07/22/2017 Inactive simvastatin 40 mg tablet RxNorm: 446456 1 Tablet(s) PO daily No Start Date 05/09/2015 Inactive cyanocobalamin (vit B-12) 1,000 mcg/mL injection syringe RxNorm: 712736 1 Inj monthly No Start Date 02/15/2017 Inactive Reglan 10 mg tablet RxNorm: 853255 1 Tablet(s) PO as needed No Start Date 07/29/2016 Inactive alendronate 70 mg tablet RxNorm: 380445 1 Tablet(s) PO weekly No Start Date 04/16/2015 Inactive Protonix 40 mg tablet,delayed release RxNorm: 941012 1 Tablet(s) PO daily No Start Date 03/04/2015 Inactive cyclobenzaprine 5 mg tablet RxNorm: 144491 1 Tablet(s) PO Q8 as needed muscle spasms No Start Date 09/10/2016 Inactive Vitamin D3 1,000 unit capsule RxNorm: 102976 1 Capsule(s) PO daily No Start Date 07/13/2014 Inactive Cardizem CD 360 mg capsule,extended release RxNorm: 481006 1 Capsule(s) PO daily No Start Date 01/04/2018 Inactive prednisone 10 mg tablets in a dose pack RxNorm: 817751 1 Tablet(s) PO UD No Start Date 09/08/2016 Inactive Medication Administered Medication Codes Instructions Start Date Status Kenalog 40 mg/mL suspension for injection RxNorm: 3733525 1Milliliter 08/31/2017 No longer Active Kenalog 40 mg/mL suspension for injection RxNorm: 1726011 2Milliliter 08/21/2017 No longer Active Kenalog 40 mg/mL suspension for injection RxNorm: 1601670 2MilliliterUD 08/12/2017 No longer Active Kenalog 40 mg/mL suspension for injection RxNorm: 2619183 2Milliliter 08/05/2017 No longer Active Kenalog 40 mg/mL suspension for injection RxNorm: 9235955 1.5Milliliter 04/02/2017 No longer Active Kenalog 40 mg/mL suspension for injection RxNorm: 0518882 1Milliliter 10/02/2016 No longer Active Kenalog 40 mg/mL suspension for injection RxNorm: 9348319 1Milliliter 09/12/2016 No longer Active Immunizations Vaccine Codes Date Status Influenza CVX: 141 12/03/2017 completed Influenza CVX: 141 12/08/2016 completed Influenza CVX: 141 11/19/2015 completed Influenza CVX: 141 01/10/2015 completed Pneumococcal (Adult) CVX: 133 12/11/2014 completed Pneumococcal (Adult) CVX: 133 12/11/2014 completed Assessments Condition Codes Effective Dates Generalized edema ICD-10: R60.1 ICD-9: 782.3 01/14/2018 Lymphedema, not elsewhere classified ICD-10: I89.0 ICD-9: 457.1 01/14/2018 Essential (primary) hypertension ICD-10: I10 ICD-9: 401.1 12/24/2017 Chronic pain syndrome ICD-10: G89.4 ICD-9: 338.4 12/24/2017 Pain in left shoulder ICD-10: M25.512 ICD-9: 719.41 11/10/2017 Primary osteoarthritis, left shoulder ICD-10: M19.012 ICD-9: 715.91 11/10/2017 Rheumatoid arthritis without rheumatoid factor, right shoulder ICD-10: M06.011 ICD-9: 714.0 11/10/2017 Rheumatoid arthritis without rheumatoid factor, left shoulder ICD-10: M06.012 ICD-9: 714.0 11/10/2017 Primary osteoarthritis, 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 ICD-9: 715.91 11/10/2017 Pain in right shoulder ICD-10: M25.511 ICD-9: 719.41 11/10/2017 Localized edema ICD-10: R60.0 ICD-9: 782.3 11/10/2017 Anemia, unspecified ICD-10: D64.9 ICD-9: 285.9 10/21/2017 Chronic atrial fibrillation ICD-10: I48.2 ICD-9: 427.31 09/15/2017 Hemarthrosis, left shoulder ICD-10: M25.012 ICD-9: 719.11 08/31/2017 Hemarthrosis, right shoulder ICD-10: M25.011 ICD-9: 719.11 08/05/2017 Essential (primary) hypertension ICD-10: I10 ICD-9: 401.9 08/05/2017 Hypomagnesemia ICD-10: E83.42 ICD-9: 275.2 01/08/2017 Encounter for immunization ICD-10: Z23 ICD-9: V04.81 12/08/2016 Urge incontinence ICD-10: N39.41 ICD-9: 788.31 11/17/2016 Primary osteoarthritis, right hand ICD-10: M19.041 ICD-9: 715.94 11/10/2016 Other iron deficiency anemias ICD-10: D50.8 ICD-9: 280.1 11/10/2016 Spondylosis without myelopathy or radiculopathy, cervical region ICD-10: M47.812 ICD-9: 721.0 11/10/2016 Other chronic pain ICD-10: G89.29 ICD-9: 338.29 11/05/2016 Presbycusis, bilateral ICD-10: H91.13 ICD-9: 388.01 10/07/2016 Primary osteoarthritis, left hand ICD-10: M19.042 ICD-9: 715.94 10/07/2016 Low back pain ICD-10: M54.5 ICD-9: 724.2 09/12/2016 Sacroiliitis, not elsewhere classified ICD-10: M46.1 ICD-9: 720.2 09/12/2016 Vitamin D deficiency, unspecified ICD-10: E55.9 ICD-9: 268.9 08/26/2016 Nocturia ICD-10: R35.1 ICD-9: 788.43 07/30/2016 Torticollis ICD-10: M43.6 ICD-9: 723.5 07/30/2016 Spinal stenosis, 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 ICD-9: 723.0 07/30/2016 Myalgia ICD-10: M79.1 ICD-9: 729.1 03/18/2016 Mixed [...] Visit Reason For Visit Effective Dates Notes edema 01/14/2018 Hospital Follow Up 12/24/2017 rheumatoid arthritis 11/30/2017 edema 11/27/2017 rheumatoid arthritis 11/10/2017 rheumatoid arthritis 10/29/2017 rheumatoid arthritis 10/20/2017 rheumatoid arthritis 09/29/2017 rheumatoid arthritis 09/15/2017 rheumatoid arthritis 08/31/2017 rheumatoid arthritis 08/21/2017 rheumatoid arthritis 08/12/2017 rheumatoid arthritis 08/05/2017 rheumatoid arthritis 07/23/2017 rheumatoid arthritis 07/09/2017 rheumatoid arthritis 07/01/2017 rheumatoid arthritis 06/24/2017 Hospital Follow Up 06/17/2017 edema 06/01/2017 shoulder pain 04/02/2017 shoulder pain 03/12/2017 shoulder [...] Observation Code Item Item Code Result Date Tibc Ord40 Iron 75 ug/dl 10/22/2017 Tibc Ord40 UIBC 270 ug/dL 10/22/2017 Tibc Ord40 TIBC 345 ug/dL 10/22/2017 Tibc Ord40 Fe-%Sat 21.7 % 10/22/2017 Prealbumin 386140 PREALBUMIN 33 mg/dL 10/21/2017 Comp Metabolic Fuo918 NA 134 mEq/L 10/20/2017 Comp Metabolic Wku166 K 3.7 mEq/L 10/20/2017 Comp Metabolic Gmx720 CL 93 mEq/L 10/20/2017 Comp Metabolic Ijp985 CO2 29.0 mEq/L 10/20/2017 Comp Metabolic Awa533 ANION GAP 16 10/20/2017 Comp Metabolic Nub140 GLUCOSE 115 mg/dL 10/20/2017 Comp Metabolic Nrv956 Creat 0.8 mg/dL 10/20/2017 Comp Metabolic Gji901 eGFR 73 ml/min/1.73m2 10/20/2017 Comp Metabolic Zcj645 BUN 46 mg/dL 10/20/2017 Comp Metabolic Xae999 B/C Ratio 57.5 Ratio 10/20/2017 Comp Metabolic Xjp009 CALCIUM 8.7 mg/dL 10/20/2017 Comp Metabolic Tug694 ALK PHOS 56 U/L 10/20/2017 Comp Metabolic Bch077 AST(SGOT) 19 U/L 10/20/2017 Comp Metabolic Qpk572 ALT(SGPT) 23 U/L 10/20/2017 Comp Metabolic Uzp520 BILI T 0.6 mg/dL 10/20/2017 Comp Metabolic Mvy109 ALBUMIN 4.0 g/dL 10/20/2017 Comp Metabolic Wad590 TPRO 6.6 g/dL 10/20/2017 Comp Metabolic Gcg808 GLOB 2.7 g/dL 10/20/2017 Comp Metabolic Jte353 A/G Ratio 1.5 Ratio 10/20/2017 Comp Metabolic Rfh443 Osmo 281 mOsmo 10/20/2017 Tsh Ord6 TSH (3rd IS) 2.69 uIU/mL 10/20/2017 Cbc With Differential Ord2 WBC 6.24 K/ul 10/20/2017 Cbc With Differential Ord2 RBC 3.47 M/ul 10/20/2017 Cbc With Differential Ord2 HGB 12.3 g/dl 10/20/2017 Cbc With Differential Ord2 HCT 37.5 % 10/20/2017 Cbc With Differential Ord2 Neut% 71.5 % 10/20/2017 Cbc With Differential Ord2 MCV 108.1 fl 10/20/2017 Cbc With Differential Ord2 Lymph% 18.4 % 10/20/2017 Cbc With Differential Ord2 [place]% 9.9 % 10/20/2017 Cbc With Differential Ord2 MCH 35.4 pg 10/20/2017 Cbc With Differential Ord2 Eos% 0.0 % 10/20/2017 Cbc With Differential Ord2 MCHC 32.8 pg 10/20/2017 Cbc With Differential Ord2 Baso% 0.2 % 10/20/2017 Cbc With Differential Ord2 PLT 262 K/ul 10/20/2017 Cbc With Differential Ord2 RDW 13.4 % 10/20/2017 Cbc With Differential Ord2 Neut ABS# 4.46 K/ul 10/20/2017 Cbc With Differential Ord2 Lymph ABS# 1.15 K/ul 10/20/2017 Cbc With Differential Ord2 [place] ABS# 0.6 K/ul 10/20/2017 Cbc With Differential Ord2 Eos ABS# 0.0 K/ul 10/20/2017 Cbc With Differential Ord2 Baso ABS# 0.0 K/ul 10/20/2017 Iron Ord72 Iron 75 ug/dl 10/20/2017 Romie Reflex Profile [id number] ROMIE (BRYANNA) SCREEN NONE DETECTED 01/12/2017 Comp Metabolic Qnc913 NA 129 mEq/L 01/08/2017 Comp Metabolic Njb186 K 3.9 mEq/L 01/08/2017 Comp Metabolic Gta685 CL 94 mEq/L 01/08/2017 Comp Metabolic Diy713 CO2 31.0 mEq/L 01/08/2017 Comp Metabolic Khm366 ANION GAP 8 01/08/2017 Comp Metabolic Wwo398 GLUCOSE 103 mg/dL 01/08/2017 Comp Metabolic Rzc388 Creat 0.9 mg/dL 01/08/2017 Comp Metabolic Ewj604 eGFR 61 ml/min/1.73m2 01/08/2017 Comp Metabolic Ski912 BUN 29 mg/dL 01/08/2017 Comp Metabolic Mvg355 B/C Ratio 30.9 Ratio 01/08/2017 Comp Metabolic Bzw996 CALCIUM 8.5 mg/dL 01/08/2017 Comp Metabolic Qba201 ALK PHOS 58 U/L 01/08/2017 Comp Metabolic Gkq540 AST(SGOT) 17 U/L 01/08/2017 Comp Metabolic Mra243 ALT(SGPT) 10 U/L 01/08/2017 Comp Metabolic Ufn105 BILI T 0.4 mg/dL 01/08/2017 Comp Metabolic Jul701 ALBUMIN 3.0 g/dL 01/08/2017 Comp Metabolic Iwv471 TPRO 5.5 g/dL 01/08/2017 Comp Metabolic Tyx762 GLOB 2.5 g/dL 01/08/2017 Comp Metabolic Div969 A/G Ratio 1.2 Ratio 01/08/2017 Comp Metabolic Wgw329 Osmo 265 mOsmo 01/08/2017 Cbc With Differential [...] 102.2 fl 01/08/2017 Cbc With Differential Ord2 [place]% 12.2 % 01/08/2017 Cbc With Differential Ord2 [...] 1.62 K/ul 01/08/2017 Cbc With Differential Ord2 [place] ABS# 0.9 K/ul 01/08/2017 Cbc With Differential [...] 34.5 % 11/10/2016 Cbc With Differential Ord2 MCV 100.3 fl 11/10/2016 Cbc With Differential Ord2 Lymph% 13.1 % 11/10/2016 Cbc With Differential Ord2 MCH 33.1 pg 11/10/2016 Cbc With Differential Ord2 [place]% 9.1 % 11/10/2016 Cbc With Differential Ord2 MCHC 33.0 pg 11/10/2016 Cbc With Differential Ord2 Eos% 0.2 % 11/10/2016 Cbc With Differential Ord2 PLT 280 K/ul 11/10/2016 Cbc With Differential Ord2 Baso% 0.7 % 11/10/2016 Cbc With Differential Ord2 RDW 18.4 % 11/10/2016 Cbc With Differential Ord2 Neut ABS# 4.58 K/ul 11/10/2016 Cbc With Differential Ord2 Lymph ABS# 0.78 K/ul 11/10/2016 Cbc With Differential Ord2 [place] ABS# 0.5 K/ul 11/10/2016 Cbc With Differential [...] 30.3 pg 10/07/2016 Cbc With Differential Ord2 [place]% 11.8 % 10/07/2016 Cbc With Differential Ord2 [...] 1.54 K/ul 10/07/2016 Cbc With Differential Ord2 [place] ABS# 1.0 K/ul 10/07/2016 Cbc With Differential Ord2 Eos ABS# 0.1 K/ul 10/07/2016 Cbc With Differential Ord2 Baso ABS# 0.0 K/ul 10/07/2016 Tibc Ord40 Iron 13 ug/dl 08/26/2016 Tibc Ord40 UIBC 283 ug/dL 08/26/2016 Tibc Ord40 TIBC 296 ug/dL 08/26/2016 Tibc Ord40 Fe-%Sat 4.4 % 08/26/2016 Ferritin Ord22 FERRITIN 28.8 ng/mL 08/26/2016 Comp Metabolic Kad299 NA 129 mEq/L 08/26/2016 Comp Metabolic Lfs799 K 3.9 mEq/L 08/26/2016 Comp Metabolic Aej027 CL 93 mEq/L 08/26/2016 Comp Metabolic Sgr739 CO2 30.0 mEq/L 08/26/2016 Comp Metabolic Mxf460 ANION GAP 10 08/26/2016 Comp Metabolic Lsn685 GLUCOSE 87 mg/dL 08/26/2016 Comp Metabolic Vfc789 Creat 0.6 mg/dL 08/26/2016 Comp Metabolic Mph563 eGFR 96 ml/min/1.73m2 08/26/2016 Comp Metabolic Nzi855 BUN 17 mg/dL 08/26/2016 Comp Metabolic Fqh253 B/C Ratio 27.0 Ratio 08/26/2016 Comp Metabolic Axa857 CALCIUM 7.6 mg/dL 08/26/2016 Comp Metabolic Pgr180 ALK PHOS 72 U/L 08/26/2016 Comp Metabolic Ewq861 AST(SGOT) 20 U/L 08/26/2016 Comp Metabolic Sui096 ALT(SGPT) 12 U/L 08/26/2016 Comp Metabolic Ieh008 BILI T 0.3 mg/dL 08/26/2016 Comp Metabolic Zeq165 ALBUMIN 2.7 g/dL 08/26/2016 Comp Metabolic Qfq650 TPRO 5.3 g/dL 08/26/2016 Comp Metabolic Suw202 GLOB 2.6 g/dL 08/26/2016 Comp Metabolic Mfe789 A/G Ratio 1.1 Ratio 08/26/2016 Comp Metabolic Prm262 Osmo 260 mOsmo 08/26/2016 Cbc With Differential [...] 88.7 fl 08/26/2016 Cbc With Differential Ord2 [place]% 9.6 % 08/26/2016 Cbc With Differential Ord2 [...] 1.83 K/ul 08/26/2016 Cbc With Differential Ord2 [place] ABS# 1.0 K/ul 08/26/2016 Cbc With Differential Ord2 Eos ABS# 0.1 K/ul 08/26/2016 Cbc With Differential Ord2 Baso ABS# 0.0 K/ul 08/26/2016 Magnesium Ord90 Mag 1.9 mg/dL 08/26/2016 Vitamin D 25 Oh [id number] VITAMIN D, 25 HYDROXY 34.59 ng/mL Sed Rate Ord21 ESR 20 mm/hr 11/19/2015 Comp Metabolic Qjr116 NA 131 mEq/L 08/22/2015 Comp Metabolic Vkh008 K 4.2 mEq/L 08/22/2015 Comp Metabolic Dbb832 CL 98 mEq/L 08/22/2015 Comp Metabolic Hfj547 CO2 27.0 mEq/L 08/22/2015 Comp Metabolic Isv082 ANION GAP 10 08/22/2015 Comp Metabolic Fts641 GLUCOSE 80 mg/dL 08/22/2015 Comp Metabolic Odm131 Creat 0.5 mg/dL 08/22/2015 Comp Metabolic Xht589 eGFR 120 ml/min/1.73m2 08/22/2015 Comp Metabolic Rkv489 BUN 13 mg/dL 08/22/2015 Comp Metabolic Pwv950 B/C Ratio 25.0 Ratio 08/22/2015 Comp Metabolic Ekt657 CALCIUM 8.2 mg/dL 08/22/2015 Comp Metabolic Atg698 ALK PHOS 49 U/L 08/22/2015 Comp Metabolic Ujm037 AST(SGOT) 18 U/L 08/22/2015 Comp Metabolic Itv691 ALT(SGPT) 11 U/L 08/22/2015 Comp Metabolic Tvi826 BILI T 0.5 mg/dL 08/22/2015 Comp Metabolic Wtq127 ALBUMIN 3.5 g/dL 08/22/2015 Comp Metabolic Ufm791 TPRO 6.2 g/dL 08/22/2015 Comp Metabolic Pbu911 GLOB 2.7 g/dL 08/22/2015 Comp Metabolic Eub317 A/G Ratio 1.3 Ratio 08/22/2015 Comp Metabolic Gka914 Osmo 262 mOsmo 08/22/2015 Cbc With Differential [...] 21.4 % 08/22/2015 Cbc With Differential Ord2 [place]% 10.3 % 08/22/2015 Cbc With Differential Ord2 [...] 1.39 K/ul 08/22/2015 Cbc With Differential Ord2 [place] ABS# 0.7 K/ul 08/22/2015 Cbc With Differential Ord2 Eos ABS# 0.1 K/ul 08/22/2015 Cbc With Differential Ord2 Baso ABS# 0.0 K/ul 08/22/2015 Tsh Ord6 hTSH II 2.19 uIU/mL 08/22/2015 Vitamin D 25 Oh [id number] VITAMIN D, 25 HYDROXY 55.10 ng/mL Lipid [...] 1.5 Ratio 03/16/2015 Vitamin D 25 Oh [id number] VITAMIN D, 25 HYDROXY 28.94 ng/mL Cbc With Differential Ord2 WBC 7.41 K/ul 03/16/2015 Cbc With Differential Ord2 RBC 3.45 M/ul 03/16/2015 Cbc With Differential Ord2 HGB 9.7 g/dl 03/16/2015 Cbc With Differential Ord2 HCT 30.4 % 03/16/2015 Cbc With Differential Ord2 Neut% 55.2 % 03/16/2015 Cbc With Differential Ord2 Lymph% 32.0 % 03/16/2015 Cbc With Differential Ord2 MCV 88.1 fl 03/16/2015 Cbc With Differential Ord2 MCH 28.1 pg 03/16/2015 Cbc With Differential Ord2 [place]% 11.2 % 03/16/2015 Cbc With Differential Ord2 MCHC 31.9 pg 03/16/2015 Cbc With Differential Ord2 Eos% 1.2 % 03/16/2015 Cbc With Differential Ord2 PLT 346 K/ul 03/16/2015 Cbc With Differential Ord2 Baso% 0.4 % 03/16/2015 Cbc With Differential Ord2 Neut ABS# 4.09 K/ul 03/16/2015 Cbc With Differential Ord2 RDW 13.2 % 03/16/2015 Cbc With Differential Ord2 Lymph ABS# 2.37 K/ul 03/16/2015 Cbc With Differential Ord2 [place] ABS# 0.8 K/ul 03/16/2015 Cbc With Differential Ord2 Eos ABS# 0.1 K/ul 03/16/2015 Cbc With Differential Ord2 Baso ABS# 0.0 K/ul 03/16/2015 Cbc With Differential Ord2 New Analyzer Notice Please note new ref ranges starting 03-14-2015 due to implemntation of new five part differential hematolgy analyzer. 03/16/2015 Comp Metabolic Afh742 NA 131 mEq/L 03/16/2015 Comp Metabolic Xgc003 K 4.1 mEq/L 03/16/2015 Comp Metabolic Zbf618 CL 94 mEq/L 03/16/2015 Comp Metabolic Sez062 CO2 28.0 mEq/L 03/16/2015 Comp Metabolic Unu123 ANION GAP 13 03/16/2015 Comp Metabolic Qbr855 GLUCOSE 96 mg/dL 03/16/2015 Comp Metabolic Pfi468 Creat 0.7 mg/dL 03/16/2015 Comp Metabolic Bei103 eGFR 80 ml/min/1.73m2 03/16/2015 Comp Metabolic Ieu184 BUN 16 mg/dL 03/16/2015 Comp Metabolic Avk527 B/C Ratio 21.6 Ratio 03/16/2015 Comp Metabolic Eyo758 CALCIUM 8.9 mg/dL 03/16/2015 Comp Metabolic Ehs815 ALK PHOS 44 U/L 03/16/2015 Comp Metabolic Dfr872 AST(SGOT) 22 U/L 03/16/2015 Comp Metabolic Dop858 ALT(SGPT) 14 U/L 03/16/2015 Comp Metabolic Cho929 BILI T 0.5 mg/dL 03/16/2015 Comp Metabolic Rue909 ALBUMIN 3.4 g/dL 03/16/2015 Comp Metabolic Xvk924 TPRO 6.0 g/dL 03/16/2015 Comp Metabolic Dfa158 GLOB 2.6 g/dL 03/16/2015 Comp Metabolic Zmo663 A/G Ratio 1.3 Ratio 03/16/2015 Comp Metabolic Oof020 Osmo 264 mOsmo 03/16/2015 Comp Metabolic Cep019 NA 129 mEq/L 11/09/2014 Comp Metabolic Hds433 K 4.2 mEq/L 11/09/2014 Comp Metabolic Pir921 CL 96 mEq/L 11/09/2014 Comp Metabolic Zpu664 CO2 27.0 mEq/L 11/09/2014 Comp Metabolic Mfg132 ANION GAP 10 11/09/2014 Comp Metabolic Ycz382 GLUCOSE 144 mg/dL 11/09/2014 Comp Metabolic Djs666 Creat 0.8 mg/dL 11/09/2014 Comp Metabolic Nqz919 eGFR 73 ml/min/1.73m2 11/09/2014 Comp Metabolic Fah346 BUN 22 mg/dL 11/09/2014 Comp Metabolic Ynd201 B/C Ratio 27.5 Ratio 11/09/2014 Comp Metabolic Tpr867 CALCIUM 8.6 mg/dL 11/09/2014 Comp Metabolic Zky343 ALK PHOS 55 U/L 11/09/2014 Comp Metabolic Ptr726 AST(SGOT) 27 U/L 11/09/2014 Comp Metabolic Rwq146 ALT(SGPT) 18 U/L 11/09/2014 Comp Metabolic Uww681 BILI T 0.5 mg/dL 11/09/2014 Comp Metabolic Uxy051 ALBUMIN 3.0 g/dL 11/09/2014 Comp Metabolic Ebf473 TPRO 5.4 g/dL 11/09/2014 Comp Metabolic Uoa737 GLOB 2.4 g/dL 11/09/2014 Comp Metabolic Mia164 A/G Ratio 1.3 Ratio 11/09/2014 Comp Metabolic Anr598 Osmo 265 mOsmo 11/09/2014 Magnesium Ord90 Mag 1.8 mg/dL 11/09/2014 Review of Systems System Result Effective Dates Constitutional No recent illness 2017 Constitutional No anorexia 01/14/2018 Constitutional No night sweats 2017 Constitutional No chills 01/14/2018 Constitutional No diaphoresis 01/14/2018 Constitutional fatigue 01/14/2018 Constitutional No fever 01/14/2018 Constitutional No insomnia 01/14/2018 Constitutional No malaise 01/14/2018 Constitutional weight gain 01/14/2018 Eyes No blindness 01/14/2018 Eyes No vision change 01/14/2018 Ears/Nose/Throat/Neck No dental pain Ears/Nose/Throat/Neck No dizziness 2017 Ears/Nose/Throat/Neck No dysphagia 2017 Ears/Nose/Throat/Neck No headache 2017 Ears/Nose/Throat/Neck No hearing loss Ears/Nose/Throat/Neck No nasal allergies 01/14/2018 Ears/Nose/Throat/Neck No nasal discharge 01/14/2018 Ears/Nose/Throat/Neck No sore throat Ears/Nose/Throat/Neck No postnasal drip 01/14/2018 Ears/Nose/Throat/Neck No sinus congestion 01/14/2018 Cardiovascular No chest pain/pressure Cardiovascular edema 01/14/2018 Cardiovascular No exercise intolerance Cardiovascular fatigue 01/14/2018 Cardiovascular No near-syncope/dizziness 01/14/2018 Respiratory No chest tightness 2017 Respiratory No cigarette smoking 2017 Respiratory No cough 01/14/2018 Respiratory No dyspnea 01/14/2018 Respiratory pedal edema 01/14/2018 Gastrointestinal No hemorrhoids 2017 Gastrointestinal No abdominal pain 2017 Gastrointestinal No constipation 2017 Gastrointestinal No diarrhea 01/14/2018 Gastrointestinal No gastroesophageal reflux 01/14/2018 Gastrointestinal No melena 01/14/2018 Gastrointestinal No nausea 01/14/2018 Gastrointestinal No vomiting 01/14/2018 Genitourinary/Nephrology No dysuria 01/14 Genitourinary/Nephrology nocturia 2017 Genitourinary/Nephrology No urinary incontinence 01/14/2018 Musculoskeletal stiffness 01/14/2018 Musculoskeletal swelling 01/14/2018 Musculoskeletal arthralgia(s) 01/14/2018 Musculoskeletal back pain 01/14/2018 Musculoskeletal muscle weakness 2017 Musculoskeletal neck pain 01/14/2018 Musculoskeletal shoulder pain 01/14/2018 Dermatologic No rash 01/14/2018 Dermatologic sores 01/14/2018 Neurologic No alteration of consciousness 01/14/2018 Neurologic No mental status change 2017 Neurologic neck pain 01/14/2018 Psychiatric No anxiety 01/14/2018 Psychiatric No depression 01/14/2018 Constitutional No recent illness 2017 Constitutional No anorexia 12/24/2017 Constitutional No night sweats 2017 Constitutional No chills 12/24/2017 Constitutional No diaphoresis 12/24/2017 Constitutional fatigue 12/24/2017 Constitutional No fever 12/24/2017 Constitutional No insomnia 12/24/2017 Constitutional No malaise 12/24/2017 Eyes No blindness 12/24/2017 Eyes No vision change 12/24/2017 Ears/Nose/Throat/Neck No dental pain Ears/Nose/Throat/Neck No dizziness 2017 Ears/Nose/Throat/Neck No dysphagia 2017 Ears/Nose/Throat/Neck No headache 2017 Ears/Nose/Throat/Neck No hearing loss Ears/Nose/Throat/Neck No nasal allergies 12/24/2017 Ears/Nose/Throat/Neck No nasal discharge 12/24/2017 Ears/Nose/Throat/Neck No sore throat Ears/Nose/Throat/Neck No postnasal drip 12/24/2017 Ears/Nose/Throat/Neck No sinus congestion 12/24/2017 Cardiovascular No chest pain/pressure Cardiovascular edema 12/24/2017 Cardiovascular No exercise intolerance Cardiovascular fatigue 12/24/2017 Cardiovascular No near-syncope/dizziness 12/24/2017 Respiratory No chest tightness 2017 Respiratory No cigarette smoking 2017 Respiratory No cough 12/24/2017 Respiratory No dyspnea 12/24/2017 Respiratory pedal edema 12/24/2017 Gastrointestinal No hemorrhoids 2017 Gastrointestinal No abdominal pain 2017 Gastrointestinal No constipation 2017 Gastrointestinal No diarrhea 12/24/2017 Gastrointestinal No gastroesophageal reflux 12/24/2017 Gastrointestinal No melena 12/24/2017 Gastrointestinal No nausea 12/24/2017 Gastrointestinal No vomiting 12/24/2017 Genitourinary/Nephrology No dysuria 12/24 Genitourinary/Nephrology nocturia 2017 Genitourinary/Nephrology No urinary incontinence 12/24/2017 Musculoskeletal stiffness 12/24/2017 Musculoskeletal swelling 12/24/2017 Musculoskeletal arthralgia(s) 12/24/2017 Musculoskeletal back pain 12/24/2017 Musculoskeletal muscle weakness 2017 Musculoskeletal neck pain 12/24/2017 Musculoskeletal shoulder pain 12/24/2017 Dermatologic No rash 12/24/2017 Dermatologic sores 12/24/2017 Neurologic No alteration of consciousness 12/24/2017 Neurologic No mental status change 2017 Neurologic neck pain 12/24/2017 Psychiatric No anxiety 12/24/2017 Psychiatric No depression 12/24/2017 Constitutional weight gain 12/24/2017 Constitutional No recent illness 2017 Constitutional No anorexia 11/30/2017 Constitutional No night sweats 2017 Constitutional No chills 11/30/2017 Constitutional No diaphoresis 11/30/2017 Constitutional fatigue 11/30/2017 Constitutional No fever 11/30/2017 Constitutional insomnia 11/30/2017 Constitutional No malaise 11/30/2017 Cardiovascular No chest pain/pressure 03/2017 Cardiovascular edema 11/30/2017 Cardiovascular exercise intolerance 11/30 Cardiovascular fatigue 11/30/2017 Cardiovascular No near-syncope/dizziness 11/30/2017 Respiratory No chest tightness 2017 Respiratory No cough 11/30/2017 Respiratory No dyspnea 11/30/2017 Respiratory No pedal edema 11/30/2017 Gastrointestinal No abdominal pain 2017 Gastrointestinal No constipation 2017 Gastrointestinal No diarrhea 11/30/2017 Gastrointestinal No gastroesophageal reflux 11/30/2017 Gastrointestinal No melena 11/30/2017 Gastrointestinal No nausea 11/30/2017 Gastrointestinal No vomiting 11/30/2017 Musculoskeletal stiffness 11/30/2017 Musculoskeletal swelling 11/30/2017 Musculoskeletal arthralgia(s) 11/30/2017 Musculoskeletal back pain 11/30/2017 Musculoskeletal joint complaint 2017 Musculoskeletal muscle weakness 2017 Musculoskeletal neck pain 11/30/2017 Musculoskeletal shoulder pain 11/30/2017 Dermatologic No rash 11/30/2017 Dermatologic sores 11/30/2017 Neurologic No alteration of consciousness 11/30/2017 Neurologic neck pain 11/30/2017 Psychiatric No anxiety 11/30/2017 Psychiatric No depression 11/30/2017 Constitutional No recent illness 2017 Constitutional No anorexia 11/27/2017 Constitutional No night sweats 2017 Constitutional No chills 11/27/2017 Constitutional No diaphoresis 11/27/2017 Constitutional No fever 11/27/2017 Constitutional insomnia 11/27/2017 Constitutional No malaise 11/27/2017 Eyes No blindness 11/27/2017 Eyes No vision change 11/27/2017 Ears/Nose/Throat/Neck No dizziness 2017 Ears/Nose/Throat/Neck No dysphagia 2017 Ears/Nose/Throat/Neck No headache 2017 Ears/Nose/Throat/Neck No hearing loss Ears/Nose/Throat/Neck No nasal allergies 11/27/2017 Cardiovascular No chest pain/pressure Cardiovascular edema 11/27/2017 Cardiovascular exercise intolerance 11/27 Cardiovascular fatigue 11/27/2017 Cardiovascular No near-syncope/dizziness 11/27/2017 Respiratory No chest tightness 2017 Respiratory No cough 11/27/2017 Respiratory No dyspnea 11/27/2017 Respiratory No pedal edema 11/27/2017 Gastrointestinal No abdominal pain 2017 Gastrointestinal No constipation 2017 Gastrointestinal No diarrhea 11/27/2017 Gastrointestinal No gastroesophageal reflux 11/27/2017 Gastrointestinal No melena 11/27/2017 Gastrointestinal No nausea 11/27/2017 Gastrointestinal No vomiting 11/27/2017 Genitourinary/Nephrology No dysuria 11/27 Genitourinary/Nephrology nocturia 2017 Genitourinary/Nephrology No urinary incontinence 11/27/2017 Musculoskeletal stiffness 11/27/2017 Musculoskeletal arthralgia(s) 11/27/2017 Musculoskeletal back pain 11/27/2017 Musculoskeletal muscle weakness 2017 Musculoskeletal neck pain 11/27/2017 Musculoskeletal shoulder pain 11/27/2017 Dermatologic No rash 11/27/2017 Dermatologic sores 11/27/2017 Neurologic No alteration of consciousness 11/27/2017 Neurologic neck pain 11/27/2017 Psychiatric No anxiety 11/27/2017 Psychiatric No depression 11/27/2017 Constitutional fatigue 11/27/2017 Musculoskeletal joint complaint 2017 Musculoskeletal swelling 11/27/2017 Constitutional No recent illness 2017 Constitutional No anorexia 11/10/2017 Constitutional No night sweats 2017 Constitutional No chills 11/10/2017 Constitutional No diaphoresis 11/10/2017 Constitutional fatigue 11/10/2017 Constitutional No fever 11/10/2017 Constitutional No insomnia 11/10/2017 Constitutional No malaise 11/10/2017 Eyes No blindness 11/10/2017 Eyes No vision change 11/10/2017 Ears/Nose/Throat/Neck No dizziness 2017 Ears/Nose/Throat/Neck No dysphagia 2017 Ears/Nose/Throat/Neck No headache 2017 Ears/Nose/Throat/Neck No hearing loss 12/2017 Ears/Nose/Throat/Neck No nasal allergies 11/10/2017 Cardiovascular No chest pain/pressure 12/2017 Cardiovascular edema 11/10/2017 Cardiovascular No exercise intolerance Cardiovascular fatigue 11/10/2017 Cardiovascular No near-syncope/dizziness 11/10/2017 Respiratory No chest tightness 2017 Respiratory No cough 11/10/2017 Respiratory No dyspnea 11/10/2017 Respiratory No pedal edema 11/10/2017 Gastrointestinal No abdominal pain 2017 Gastrointestinal No constipation 2017 Gastrointestinal No diarrhea 11/10/2017 Gastrointestinal No gastroesophageal reflux 11/10/2017 Gastrointestinal No melena 11/10/2017 Gastrointestinal No nausea 11/10/2017 Gastrointestinal No vomiting 11/10/2017 Genitourinary/Nephrology No dysuria 11/10 Genitourinary/Nephrology nocturia 2017 Genitourinary/Nephrology No urinary incontinence 11/10/2017 Musculoskeletal stiffness 11/10/2017 Musculoskeletal arthralgia(s) 11/10/2017 Musculoskeletal back pain 11/10/2017 Musculoskeletal muscle weakness 2017 Musculoskeletal neck pain 11/10/2017 Musculoskeletal shoulder pain 11/10/2017 Dermatologic No rash 11/10/2017 Dermatologic sores 11/10/2017 Neurologic No alteration of consciousness 11/10/2017 Neurologic neck pain 11/10/2017 Psychiatric No anxiety 11/10/2017 Psychiatric No depression 11/10/2017 Constitutional No recent illness 2017 Constitutional No anorexia 10/29/2017 Constitutional No night sweats 2017 Constitutional No chills 10/29/2017 Constitutional No diaphoresis 10/29/2017 Constitutional fatigue 10/29/2017 Constitutional No fever 10/29/2017 Constitutional No insomnia 10/29/2017 Constitutional No malaise 10/29/2017 Eyes No blindness 10/29/2017 Eyes No vision change 10/29/2017 Ears/Nose/Throat/Neck No dental pain Ears/Nose/Throat/Neck No dizziness 2017 Ears/Nose/Throat/Neck No dysphagia 2017 Ears/Nose/Throat/Neck No headache 2017 Ears/Nose/Throat/Neck No hearing loss Ears/Nose/Throat/Neck No nasal allergies 10/29/2017 Ears/Nose/Throat/Neck No nasal discharge 10/29/2017 Ears/Nose/Throat/Neck No sore throat Ears/Nose/Throat/Neck No postnasal drip 10/29/2017 Ears/Nose/Throat/Neck No sinus congestion 10/29/2017 Cardiovascular No chest pain/pressure Cardiovascular edema 10/29/2017 Cardiovascular No exercise intolerance Cardiovascular fatigue 10/29/2017 Cardiovascular No near-syncope/dizziness 10/29/2017 Respiratory No chest tightness 2017 Respiratory No cigarette smoking 2017 Respiratory No cough 10/29/2017 Respiratory No dyspnea 10/29/2017 Respiratory No pedal edema 10/29/2017 Respiratory No snoring 10/29/2017 Respiratory No wheezing 10/29/2017 Gastrointestinal No hemorrhoids 2017 Gastrointestinal No abdominal pain 2017 Gastrointestinal No constipation 2017 Gastrointestinal No diarrhea 10/29/2017 Gastrointestinal No gastroesophageal reflux 10/29/2017 Gastrointestinal No melena 10/29/2017 Gastrointestinal No nausea 10/29/2017 Gastrointestinal No vomiting 10/29/2017 Genitourinary/Nephrology No dysuria 10/29 Genitourinary/Nephrology nocturia 2017 Genitourinary/Nephrology No urinary incontinence 10/29/2017 Musculoskeletal stiffness 10/29/2017 Musculoskeletal arthralgia(s) 10/29/2017 Musculoskeletal back pain 10/29/2017 Musculoskeletal muscle weakness 2017 Musculoskeletal neck pain 10/29/2017 Musculoskeletal shoulder pain 10/29/2017 Dermatologic No rash 10/29/2017 Dermatologic sores 10/29/2017 Neurologic No alteration of consciousness 10/29/2017 Neurologic neck pain 10/29/2017 Psychiatric No anxiety 10/29/2017 Psychiatric No depression 10/29/2017 Musculoskeletal swelling 10/29/2017 Neurologic No mental status change 2017 Constitutional No recent illness 2017 Constitutional No anorexia 10/20/2017 Constitutional No night sweats 2017 Constitutional No chills 10/20/2017 Constitutional No diaphoresis 10/20/2017 Constitutional fatigue 10/20/2017 Constitutional No fever 10/20/2017 Constitutional No malaise 10/20/2017 Eyes No blindness 10/20/2017 Eyes No vision change 10/20/2017 Ears/Nose/Throat/Neck No dizziness 2017 Ears/Nose/Throat/Neck No dysphagia 2017 Ears/Nose/Throat/Neck No headache 2017 Ears/Nose/Throat/Neck No hearing loss Ears/Nose/Throat/Neck No nasal allergies 10/20/2017 Cardiovascular No chest pain/pressure Cardiovascular edema 10/20/2017 Cardiovascular No exercise intolerance Cardiovascular fatigue 10/20/2017 Cardiovascular No near-syncope/dizziness 10/20/2017 Respiratory No chest tightness 2017 Respiratory No cough 10/20/2017 Respiratory No dyspnea 10/20/2017 Respiratory No pedal edema 10/20/2017 Gastrointestinal No abdominal pain 2017 Gastrointestinal No constipation 2017 Gastrointestinal No diarrhea 10/20/2017 Gastrointestinal No gastroesophageal reflux 10/20/2017 Gastrointestinal No melena 10/20/2017 Gastrointestinal No nausea 10/20/2017 Gastrointestinal No vomiting 10/20/2017 Genitourinary/Nephrology No dysuria 10/20 Genitourinary/Nephrology nocturia 2017 Genitourinary/Nephrology No urinary incontinence 10/20/2017 Musculoskeletal stiffness 10/20/2017 Musculoskeletal arthralgia(s) 10/20/2017 Musculoskeletal back pain 10/20/2017 Musculoskeletal muscle weakness 2017 Musculoskeletal neck pain 10/20/2017 Musculoskeletal shoulder pain 10/20/2017 Dermatologic No rash 10/20/2017 Dermatologic sores 10/20/2017 Neurologic No alteration of consciousness 10/20/2017 Neurologic neck pain 10/20/2017 Psychiatric No anxiety 10/20/2017 Psychiatric No depression 10/20/2017 Constitutional No insomnia 10/20/2017 Constitutional No recent illness 2017 Constitutional No anorexia 09/29/2017 Constitutional No night sweats 2017 Constitutional No chills 09/29/2017 Constitutional No diaphoresis 09/29/2017 Constitutional fatigue 09/29/2017 Constitutional No fever 09/29/2017 Constitutional No insomnia 09/29/2017 Constitutional No malaise 09/29/2017 Eyes No blindness 09/29/2017 Eyes No vision change 09/29/2017 Ears/Nose/Throat/Neck No dental pain Ears/Nose/Throat/Neck No dizziness 2017 Ears/Nose/Throat/Neck No dysphagia 2017 Ears/Nose/Throat/Neck No headache 2017 Ears/Nose/Throat/Neck No hearing loss Ears/Nose/Throat/Neck No nasal allergies 09/29/2017 Ears/Nose/Throat/Neck No nasal discharge 09/29/2017 Ears/Nose/Throat/Neck No sore throat Ears/Nose/Throat/Neck No postnasal drip 09/29/2017 Ears/Nose/Throat/Neck No sinus congestion 09/29/2017 Cardiovascular No chest pain/pressure Cardiovascular edema 09/29/2017 Cardiovascular No exercise intolerance Cardiovascular No near-syncope/dizziness 09/29/2017 Respiratory No chest tightness 2017 Respiratory No cigarette smoking 2017 Respiratory No cough 09/29/2017 Respiratory No dyspnea 09/29/2017 Respiratory No pedal edema 09/29/2017 Respiratory No snoring 09/29/2017 Respiratory No wheezing 09/29/2017 Gastrointestinal No hemorrhoids 2017 Gastrointestinal No abdominal pain 2017 Gastrointestinal No constipation 2017 Gastrointestinal No diarrhea 09/29/2017 Gastrointestinal No gastroesophageal reflux 09/29/2017 Gastrointestinal No melena 09/29/2017 Gastrointestinal No nausea 09/29/2017 Gastrointestinal No vomiting 09/29/2017 Genitourinary/Nephrology No dysuria 09/29 Genitourinary/Nephrology nocturia 2017 Genitourinary/Nephrology No urinary incontinence 09/29/2017 Musculoskeletal stiffness 09/29/2017 Musculoskeletal arthralgia(s) 09/29/2017 Musculoskeletal back pain 09/29/2017 Musculoskeletal muscle weakness 2017 Musculoskeletal neck pain 09/29/2017 Musculoskeletal shoulder pain 09/29/2017 Dermatologic No rash 09/29/2017 Neurologic No alteration of consciousness 09/29/2017 Neurologic neck pain 09/29/2017 Psychiatric No anxiety 09/29/2017 Psychiatric No depression 09/29/2017 Cardiovascular fatigue 09/29/2017 Dermatologic sores 09/29/2017 Constitutional No recent illness 2017 Constitutional No anorexia 09/15/2017 Constitutional No night sweats 2017 Constitutional No chills 09/15/2017 Constitutional No diaphoresis 09/15/2017 Constitutional No fatigue 09/15/2017 Constitutional No fever 09/15/2017 Constitutional No insomnia 09/15/2017 Constitutional No malaise 09/15/2017 Eyes No blindness 09/15/2017 Eyes No vision change 09/15/2017 Ears/Nose/Throat/Neck No dental pain Ears/Nose/Throat/Neck No dizziness 2017 Ears/Nose/Throat/Neck No dysphagia 2017 Ears/Nose/Throat/Neck No headache 2017 Ears/Nose/Throat/Neck No hearing loss Ears/Nose/Throat/Neck No nasal allergies 09/15/2017 Ears/Nose/Throat/Neck No nasal discharge 09/15/2017 Ears/Nose/Throat/Neck No sore throat Ears/Nose/Throat/Neck No postnasal drip 09/15/2017 Ears/Nose/Throat/Neck No sinus congestion 09/15/2017 Cardiovascular No chest pain/pressure Cardiovascular No edema 09/15/2017 Cardiovascular No exercise intolerance Cardiovascular No near-syncope/dizziness 09/15/2017 Respiratory No chest tightness 2017 Respiratory No cigarette smoking 2017 Respiratory No cough 09/15/2017 Respiratory No dyspnea 09/15/2017 Respiratory No pedal edema 09/15/2017 Respiratory No snoring 09/15/2017 Respiratory No wheezing 09/15/2017 Gastrointestinal No hemorrhoids 2017 Gastrointestinal No abdominal pain 2017 Gastrointestinal No constipation 2017 Gastrointestinal No diarrhea 09/15/2017 Gastrointestinal No gastroesophageal reflux 09/15/2017 Gastrointestinal No melena 09/15/2017 Gastrointestinal No nausea 09/15/2017 Gastrointestinal No vomiting 09/15/2017 Genitourinary/Nephrology No dysuria 09/15 Genitourinary/Nephrology nocturia 2017 Genitourinary/Nephrology No urinary incontinence 09/15/2017 Musculoskeletal stiffness 09/15/2017 Musculoskeletal arthralgia(s) 09/15/2017 Musculoskeletal back pain 09/15/2017 Musculoskeletal muscle weakness 2017 Musculoskeletal neck pain 09/15/2017 Dermatologic No rash 09/15/2017 Dermatologic No scar 09/15/2017 Neurologic No alteration of consciousness 09/15/2017 Neurologic No mental status change 2017 Neurologic neck pain 09/15/2017 Psychiatric No anxiety 09/15/2017 Psychiatric No depression 09/15/2017 Musculoskeletal shoulder pain 09/15/2017 Constitutional No recent illness 2017 Constitutional No fatigue 08/31/2017 Constitutional No fever 08/31/2017 Eyes No blindness 08/31/2017 Ears/Nose/Throat/Neck No nasal discharge 08/31/2017 Cardiovascular No chest pain/pressure 04/2017 Cardiovascular edema 08/31/2017 Respiratory No cough 08/31/2017 Gastrointestinal No hemorrhoids 2017 Musculoskeletal stiffness 08/31/2017 Musculoskeletal swelling 08/31/2017 Musculoskeletal shoulder pain 08/31/2017 Neurologic No alteration of consciousness 08/31/2017 Neurologic No mental status change 2017 Psychiatric No anxiety 08/31/2017 Psychiatric No depression 08/31/2017 Constitutional No recent illness 2017 Constitutional No fatigue 08/21/2017 Constitutional No fever 08/21/2017 Eyes No blindness 08/21/2017 Ears/Nose/Throat/Neck No nasal discharge 08/21/2017 Cardiovascular No chest pain/pressure Cardiovascular edema 08/21/2017 Respiratory No cough 08/21/2017 Gastrointestinal No hemorrhoids 2017 Musculoskeletal stiffness 08/21/2017 Musculoskeletal swelling 08/21/2017 Musculoskeletal shoulder pain 08/21/2017 Neurologic No alteration of consciousness 08/21/2017 Neurologic No mental status change 2017 Psychiatric No anxiety 08/21/2017 Psychiatric No depression 08/21/2017 Constitutional No recent illness 2017 Constitutional No fatigue 08/12/2017 Constitutional No fever 08/12/2017 Eyes No blindness 08/12/2017 Ears/Nose/Throat/Neck No nasal discharge 08/12/2017 Cardiovascular No chest pain/pressure Cardiovascular edema 08/12/2017 Respiratory No cough 08/12/2017 Gastrointestinal No hemorrhoids 2017 Musculoskeletal stiffness 08/12/2017 Musculoskeletal swelling 08/12/2017 Musculoskeletal shoulder pain 08/12/2017 Neurologic No alteration of consciousness 08/12/2017 Neurologic No mental status change 2017 Psychiatric No anxiety 08/12/2017 Psychiatric No depression 08/12/2017 Constitutional No recent illness 2017 Constitutional No fatigue 08/05/2017 Constitutional No fever 08/05/2017 Eyes No blindness 08/05/2017 Ears/Nose/Throat/Neck No nasal discharge 08/05/2017 Cardiovascular No chest pain/pressure 07/2017 Cardiovascular edema 08/05/2017 Respiratory No cough 08/05/2017 Gastrointestinal No hemorrhoids 2017 Musculoskeletal stiffness 08/05/2017 Musculoskeletal swelling 08/05/2017 Musculoskeletal shoulder pain 08/05/2017 Neurologic No alteration of consciousness 08/05/2017 Neurologic No mental status change 2017 Psychiatric No anxiety 08/05/2017 Psychiatric No depression 08/05/2017 Constitutional No recent illness 2017 Constitutional No fatigue 07/23/2017 Constitutional No fever 07/23/2017 Eyes No blindness 07/23/2017 Ears/Nose/Throat/Neck No nasal discharge 07/23/2017 Cardiovascular No chest pain/pressure Cardiovascular edema 07/23/2017 Respiratory No cough 07/23/2017 Musculoskeletal stiffness 07/23/2017 Musculoskeletal swelling 07/23/2017 Musculoskeletal shoulder pain 07/23/2017 Neurologic No alteration of consciousness 07/23/2017 Neurologic No mental status change 2017 Gastrointestinal No hemorrhoids 2017 Psychiatric No anxiety 07/23/2017 Psychiatric No depression 07/23/2017 Constitutional No recent illness 2017 Constitutional No fatigue 07/09/2017 Constitutional No fever 07/09/2017 Eyes No blindness 07/09/2017 Ears/Nose/Throat/Neck No nasal discharge 07/09/2017 Cardiovascular No chest pain/pressure 11/2017 Cardiovascular edema 07/09/2017 Respiratory No cough 07/09/2017 Musculoskeletal stiffness 07/09/2017 Musculoskeletal swelling 07/09/2017 Musculoskeletal shoulder pain 07/09/2017 Neurologic No alteration of consciousness 07/09/2017 Neurologic No mental status change 2017 Constitutional No recent illness 2017 Constitutional No fatigue 07/01/2017 Constitutional No fever 07/01/2017 Eyes No blindness 07/01/2017 Ears/Nose/Throat/Neck No nasal discharge 07/01/2017 Cardiovascular No chest pain/pressure 04/2017 Respiratory No cough 07/01/2017 Musculoskeletal stiffness 07/01/2017 Musculoskeletal swelling 07/01/2017 Musculoskeletal shoulder pain 07/01/2017 Neurologic No alteration of consciousness 07/01/2017 Neurologic No mental status change 2017 Cardiovascular edema 07/01/2017 Constitutional No recent illness 2017 Constitutional No fatigue 06/24/2017 Constitutional No fever 06/24/2017 Eyes No blindness 06/24/2017 Ears/Nose/Throat/Neck No nasal discharge 06/24/2017 Cardiovascular No chest pain/pressure Respiratory No cough 06/24/2017 Musculoskeletal stiffness 06/24/2017 Musculoskeletal swelling 06/24/2017 Musculoskeletal shoulder pain 06/24/2017 Neurologic No alteration of consciousness 06/24/2017 Neurologic No mental status change 2017 Constitutional No recent illness 2017 Constitutional No fatigue 06/17/2017 Constitutional No fever 06/17/2017 Eyes No blindness 06/17/2017 Ears/Nose/Throat/Neck No nasal discharge 06/17/2017 Cardiovascular No chest pain/pressure Respiratory No cough 06/17/2017 Musculoskeletal stiffness 06/17/2017 Musculoskeletal swelling 06/17/2017 Neurologic No alteration of consciousness 06/17/2017 Neurologic No mental status change 2017 Musculoskeletal shoulder pain 06/17/2017 Constitutional No recent illness 2017 Constitutional No fatigue 06/01/2017 Constitutional No fever 06/01/2017 Musculoskeletal stiffness 06/01/2017 Musculoskeletal swelling 06/01/2017 Eyes No eye erythema 06/01/2017 Ears/Nose/Throat/Neck No nasal discharge 06/01/2017 Cardiovascular No chest pain/pressure 04/2017 Respiratory No cough 06/01/2017 Neurologic No alteration of consciousness 06/01/2017 Neurologic No mental status change 2017 Constitutional No recent illness 2017 Constitutional No [...] Result Effective Dates Notes Full Exam - General 1994 Constitutional general appearance Development: well developed 01/14/2018 None Full Exam - General 1994 Constitutional general appearance Development: appears stated age 1101/14/2018 None Full Exam - General 1994 Constitutional general appearance Hygiene/Attention to Grooming: good hygiene 01/14/2018 None Full Exam - General 1994 Eyes conjunctiva /eyelids Overall: conjunctiva clear 01/14/2018 None Full Exam - General 1994 Eyes conjunctiva /eyelids Overall: cornea clear 01/14/2018 None Full Exam - General 1994 Eyes conjunctiva /eyelids Overall: eyelids normal 01/14/2018 None Full Exam - General 1994 Eyes pupils and irises Overall: pupils equal, round, reactive to light and accomodation 01/14/2018 None Full Exam - General 1994 Ears/Nose/Throat oral cavity/pharynx/larynx Overall: oral mucosa clear 01/14/2018 None Full Exam - General 1994 Ears/Nose/Throat oral cavity/pharynx/larynx Overall: oropharyngeal mucosa clear 01/14/2018 None Full Exam - General 1994 Ears/Nose/Throat oral cavity/pharynx/larynx Overall: hypopharynx benign 01/14/2018 None Full Exam - General 1994 Ears/Nose/Throat oral cavity/pharynx/larynx Overall: no masses 01/14/2018 None Full Exam - General 1994 Respiratory auscultation Overall: breath sounds clear bilaterally 01/14/2018 None Full Exam - General 1994 Respiratory respiratory effort/rhythm Overall: no retractions 01/14/2018 None Full Exam - General 1994 Respiratory respiratory effort/rhythm Overall: normal rate 01/14/2018 None Full Exam - General 1994 Cardiovascular extremities Overall: no clubbing 01/14/2018 None Full Exam - General 1994 Cardiovascular extremities Edema present: pitting 01/14/2018 None Full Exam - General 1994 Cardiovascular extremities Edema present: severity 1+ - 4 +: 2+ 01/14/2018 None Full Exam - General 1994 Cardiovascular auscultation of heart Overall: regular rate 01/14/2018 None Full Exam - General 1994 Cardiovascular auscultation of heart Overall: normal heart sounds 01/14/2018 None Full Exam - General 1994 Abdomen abdominal exam Overall: no tenderness 01/14/2018 None Full Exam - General 1994 Abdomen abdominal exam Overall: normal bowel sounds 01/14/2018 None Full Exam - General 1994 Musculoskeletal upper extremity Inspection - shoulder: swelling 01/14/2018 left greater than right Full Exam - General 1994 Musculoskeletal head and neck Overall: head atraumatic 01/14/2018 None Full Exam - General 1994 Musculoskeletal head and neck Overall: TMJ benign 01/14/2018 None Full Exam - General 1994 Neurologic cranial nerves Overall: crainial nerves 2 - 12 grossly intact 01/14/2018 None Full Exam - General 1994 Psychiatric orientation/consciousness Overall: oriented to person, place and time 01/14/2018 None Full Exam - General 1994 Psychiatric mood and affect Overall: normal mood and affect 01/14/2018 None Full Exam - General 1994 Constitutional general appearance Development: well developed 12/24/2017 None Full Exam - General 1994 Constitutional general appearance Development: appears stated age 1012/24/2017 None Full Exam - General 1994 Constitutional general appearance Hygiene/Attention to Grooming: good hygiene 12/24/2017 None Full Exam - General 1994 Eyes conjunctiva /eyelids Overall: conjunctiva clear 12/24/2017 None Full Exam - General 1994 Eyes conjunctiva /eyelids Overall: cornea clear 12/24/2017 None Full Exam - General 1994 Eyes conjunctiva /eyelids Overall: eyelids normal 12/24/2017 None Full Exam - General 1994 Eyes pupils and irises Overall: pupils equal, round, reactive to light and accomodation 12/24/2017 None Full Exam - General 1994 Ears/Nose/Throat oral cavity/pharynx/larynx Overall: oral mucosa clear 12/24/2017 None Full Exam - General 1994 Ears/Nose/Throat oral cavity/pharynx/larynx Overall: oropharyngeal mucosa clear 12/24/2017 None Full Exam - General 1994 Ears/Nose/Throat oral cavity/pharynx/larynx Overall: hypopharynx benign 12/24/2017 None Full Exam - General 1994 Ears/Nose/Throat oral cavity/pharynx/larynx Overall: no masses 12/24/2017 None Full Exam - General 1994 Respiratory auscultation Overall: breath sounds clear bilaterally 12/24/2017 None Full Exam - General 1994 Respiratory respiratory effort/rhythm Overall: no retractions 12/24/2017 None Full Exam - General 1994 Respiratory respiratory effort/rhythm Overall: normal rate 12/24/2017 None Full Exam - General 1994 Cardiovascular extremities Overall: no clubbing 12/24/2017 None Full Exam - General 1994 Cardiovascular extremities Edema present: pitting 12/24/2017 None Full Exam - General 1994 Cardiovascular extremities Edema present: severity 1+ - 4 +: 2+ 12/24/2017 None Full Exam - General 1994 Cardiovascular auscultation of heart Overall: regular rate 12/24/2017 None Full Exam - General 1994 Cardiovascular auscultation of heart Overall: normal heart sounds 12/24/2017 None Full Exam - General 1994 Abdomen abdominal exam Overall: no tenderness 12/24/2017 None Full Exam - General 1994 Abdomen abdominal exam Overall: normal bowel sounds 12/24/2017 None Full Exam - General 1994 Musculoskeletal upper extremity Inspection - shoulder: swelling 12/24/2017 left greater than right Full Exam - General 1994 Musculoskeletal head and neck Overall: head atraumatic 12/24/2017 None Full Exam - General 1994 Musculoskeletal head and neck Overall: TMJ benign 12/24/2017 None Full Exam - General 1994 Neurologic cranial nerves Overall: crainial nerves 2 - 12 grossly intact 12/24/2017 None Full Exam - General 1994 Psychiatric orientation/consciousness Overall: oriented to person, place and time 12/24/2017 None Full Exam - General 1994 Psychiatric mood and affect Overall: normal mood and affect 12/24/2017 None Full Exam - General 1994 Constitutional general appearance Overall: well developed 11/30/2017 None Full Exam - General 1994 Constitutional general appearance Overall: in no acute distress 11/30/2017 None Full Exam - General 1994 Constitutional general appearance Overall: well nourished 11/30/2017 None Full Exam - General 1994 Eyes pupils and irises Overall: pupils equal, round, reactive to light and accomodation 11/30/2017 None Full Exam - General 1994 Respiratory auscultation Overall: breath sounds clear bilaterally 11/30/2017 None Full Exam - General 1994 Respiratory respiratory effort/rhythm Overall: no retractions 11/30/2017 None Full Exam - General 1994 Respiratory respiratory effort/rhythm Overall: normal rate 11/30/2017 None Full Exam - General 1994 Cardiovascular extremities Edema present: pitting 11/30/2017 None Full Exam - General 1994 Cardiovascular extremities Edema present: severity 3+ to lower legs and thighs 11/30/2017 None Full Exam - General 1995 Cardiovascular extremities Edema present: bilateral 11/30/2017 None Full Exam - General 1994 Cardiovascular extremities Edema present: to leg 11/30/2017 None Full Exam - General 1994 Cardiovascular extremities Edema present: to knees 11/30/2017 None Full Exam - General 1994 Cardiovascular extremities Edema present: to thighs 11/30/2017 None Full Exam - General 1994 Cardiovascular extremities Edema present: to sacrum 11/30/2017 None Full Exam - General 1994 Cardiovascular extremities Edema present: anasarca 11/30/2017 None Full Exam - General 1994 Cardiovascular auscultation of heart Overall: normal heart sounds 11/30/2017 None Full Exam - General 1994 Cardiovascular auscultation of heart Overall: no murmurs 11/30/2017 None Full Exam - General 1994 Cardiovascular auscultation of heart Rate: tachycardia 11/30/2017 None Full Exam - General 1994 Integument inspection of skin Location: left leg 11/30/2017 ulceration - weeping left anterior leg with bruising noted left posterior leg Full Exam - General 1994 Psychiatric orientation/consciousness Overall: oriented to person, place and time 11/30/2017 None Full Exam - General 1994 Psychiatric mood and affect Overall: normal mood and affect 11/30/2017 None Full Exam - General 1994 Psychiatric mood and affect Mood: happy 11/30/2017 None Full Exam - General 1994 Constitutional general appearance Overall: well developed 11/27/2017 None Full Exam - General 1994 Constitutional general appearance Overall: in no acute distress 11/27/2017 None Full Exam - General 1994 Constitutional general appearance Overall: well nourished 11/27/2017 None Full Exam - General 1994 Eyes pupils and irises Overall: pupils equal, round, reactive to light and accomodation 11/27/2017 None Full Exam - General 1994 Respiratory auscultation Overall: breath sounds clear bilaterally 11/27/2017 None Full Exam - General 1994 Respiratory respiratory effort/rhythm Overall: no retractions 11/27/2017 None Full Exam - General 1994 Respiratory respiratory effort/rhythm Overall: normal rate 11/27/2017 None Full Exam - General 1994 Cardiovascular extremities Edema present: pitting 11/27/2017 None Full Exam - General 1994 Cardiovascular extremities Edema present: severity 3+ to lower legs and thighs 11/27/2017 None Full Exam - General 1994 Cardiovascular auscultation of heart Overall: normal heart sounds 11/27/2017 None Full Exam - General 1994 Cardiovascular auscultation of heart Overall: no murmurs 11/27/2017 None Full Exam - General 1994 Integument inspection of skin Location: left leg 11/27/2017 ulceration - weeping left anterior leg with bruising noted left posterior leg Full Exam - General 1994 Psychiatric orientation/consciousness Overall: oriented to person, place and time 11/27/2017 None Full Exam - General 1994 Psychiatric mood and affect Overall: normal mood and affect 11/27/2017 None Full Exam - General 1994 Psychiatric mood and affect Mood: happy 11/27/2017 None Full Exam - General 1994 Cardiovascular extremities Edema present: anasarca 11/27/2017 None Full Exam - General 1994 Cardiovascular extremities Edema present: to sacrum 11/27/2017 None Full Exam - General 1994 Cardiovascular extremities Edema present: to thighs 11/27/2017 None Full Exam - General 1994 Cardiovascular extremities Edema present: to knees 11/27/2017 None Full Exam - General 1994 Cardiovascular extremities Edema present: to leg 11/27/2017 None Full Exam - General 1994 Cardiovascular extremities Edema present: bilateral 11/27/2017 None Full Exam - General 1994 Cardiovascular auscultation of heart Rate: tachycardia 11/27/2017 None Full Exam - Orthopedics Constitutional general appearance Overall: well nourished 11/10/2017 None Full Exam - Orthopedics Constitutional general appearance Overall: well developed 11/10/2017 None Full Exam - Orthopedics Eyes conjunctiva/ eyelids Overall: conjunctiva clear 11/10/2017 None Full Exam - Orthopedics Eyes conjunctiva/ eyelids Overall: cornea clear 11/10/2017 None Full Exam - Orthopedics Eyes conjunctiva/ eyelids Overall: eyelids normal 11/10/2017 None Full Exam - Orthopedics Ears/Nose/Throat lips/teeth/gingiva Overall: benign lips 11/10/2017 None Full Exam - Orthopedics Ears/Nose/Throat oral cavity/pharynx/larynx Overall: oral mucosa clear 11/10/2017 None Full Exam - Orthopedics Respiratory auscultation Overall: breath sounds clear bilaterally 11/10/2017 None Full Exam - Orthopedics Respiratory respiratory effort/rhythm Overall: no retractions 11/10/2017 None Full Exam - Orthopedics Respiratory respiratory effort/rhythm Overall: normal rate 11/10/2017 None Full Exam - Orthopedics Cardiovascular examination of vasculature Overall: regular rate and rhythm 11/10/2017 None Full Exam - Orthopedics MS: spine/rib/pelvis insp & palp - S/R/P Thoracic spine inspection: increased thoracic kyphosis 11/10/2017 None Full Exam - Orthopedics MS: Bilateral Upper Extremities insp & palp - UE Shoulders: tenderness @ subacromial space 11/10/2017 None Full Exam - Orthopedics MS: Bilateral Upper Extremities insp & palp - UE Shoulders: tenderness @ biceps tendon 11/10/2017 None Full Exam - Orthopedics MS: Bilateral Upper Extremities insp & palp - UE Upper arms: deformity 11/10/2017 None Full Exam - Orthopedics MS: Bilateral Upper Extremities insp & palp - UE Wrists: joint swelling 11/10/2017 None Full Exam - Orthopedics MS: Bilateral Upper Extremities insp & palp - UE Carpals: swelling 11/10/2017 None Full Exam - Orthopedics MS: Bilateral Upper Extremities insp & palp - UE Metacarpals: swelling 11/10/2017 None Full Exam - Orthopedics MS: Bilateral Upper Extremities insp & palp - UE Thumbs: swelling 11/10/2017 None Full Exam - Orthopedics MS: Bilateral Upper Extremities range of motion - UE Shoulders: decreased flexion 11/10/2017 None Full Exam - Orthopedics MS: Bilateral Upper Extremities range of motion - UE Shoulders: pain with flexion 11/10/2017 None Full Exam - Orthopedics MS: Bilateral Upper Extremities range of motion - UE Shoulders: decreased extension 11/10/2017 None Full Exam - Orthopedics MS: Bilateral Upper Extremities range of motion - UE Shoulders: decreased adduction 11/10/2017 None Full Exam - Orthopedics MS: Bilateral Upper Extremities range of motion - UE Shoulders: decreased internal rotation 11/10/2017 None Full Exam - Orthopedics MS: Bilateral Upper Extremities range of motion - UE Shoulders: decreased external rotation 11/10/2017 None Full Exam - Orthopedics MS: Bilateral Upper Extremities range of motion - UE Shoulders: decreased forward elevation 11/10/2017 None Full Exam - Orthopedics MS: Bilateral Upper Extremities range of motion - UE Shoulders: external rotation 20 degrees 11/10/2017 None Full Exam - Orthopedics MS: left upper extremity insp & palp - LUE Shoulder: swelling 11/10/2017 tender to palpation Full Exam - Orthopedics MS: right upper extremity insp & palp - RUE Shoulder: swelling 11/10/2017 tender to palpation - swelling with bruising going from shoulder down to mid bicep Full Exam - Orthopedics Psychiatric orientation/consciousness Overall: oriented to person, place and time 11/10/2017 None Full Exam - Orthopedics Psychiatric mood and affect Overall: normal mood and affect 11/10/2017 None Full Exam - Orthopedics Constitutional general appearance Overall: well nourished 10/29/2017 None Full Exam - Orthopedics Constitutional general appearance Overall: well developed 10/29/2017 None Full Exam - Orthopedics Eyes conjunctiva/ eyelids Overall: conjunctiva clear 10/29/2017 None Full Exam - Orthopedics Eyes conjunctiva/ eyelids Overall: cornea clear 10/29/2017 None Full Exam - Orthopedics Eyes conjunctiva/ eyelids Overall: eyelids normal 10/29/2017 None Full Exam - Orthopedics Ears/Nose/Throat lips/teeth/gingiva Overall: benign lips 10/29/2017 None Full Exam - Orthopedics Ears/Nose/Throat oral cavity/pharynx/larynx Overall: oral mucosa clear 10/29/2017 None Full Exam - Orthopedics Respiratory auscultation Overall: breath sounds clear bilaterally 10/29/2017 None Full Exam - Orthopedics Respiratory respiratory effort/rhythm Overall: no retractions 10/29/2017 None Full Exam - Orthopedics Respiratory respiratory effort/rhythm Overall: normal rate 10/29/2017 None Full Exam - Orthopedics Cardiovascular examination of vasculature Overall: regular rate and rhythm 10/29/2017 None Full Exam - Orthopedics MS: left upper extremity insp & palp - LUE Shoulder: swelling 10/29/2017 tender to palpation Full Exam - Orthopedics MS: right upper extremity insp & palp - RUE Shoulder: swelling 10/29/2017 tender to palpation - swelling with bruising going from shoulder down to mid bicep Full Exam - Orthopedics Psychiatric orientation/consciousness Overall: oriented to person, place and time 10/29/2017 None Full Exam - Orthopedics Psychiatric mood and affect Overall: normal mood and affect 10/29/2017 None Full Exam - Orthopedics MS: spine/rib/pelvis insp & palp - S/R/P Thoracic spine inspection: increased thoracic kyphosis 10/29/2017 None Full Exam - Orthopedics MS: Bilateral Upper Extremities insp & palp - UE Shoulders: tenderness @ subacromial space 10/29/2017 None Full Exam - Orthopedics MS: Bilateral Upper Extremities insp & palp - UE Shoulders: tenderness @ biceps tendon 10/29/2017 None Full Exam - Orthopedics MS: Bilateral Upper Extremities insp & palp - UE Upper arms: deformity 10/29/2017 None Full Exam - Orthopedics MS: Bilateral Upper Extremities insp & palp - UE Wrists: joint swelling 10/29/2017 None Full Exam - Orthopedics MS: Bilateral Upper Extremities insp & palp - UE Metacarpals: swelling 10/29/2017 None Full Exam - Orthopedics MS: Bilateral Upper Extremities insp & palp - UE Thumbs: swelling 10/29/2017 None Full Exam - Orthopedics MS: Bilateral Upper Extremities insp & palp - UE Carpals: swelling 10/29/2017 None Full Exam - Orthopedics MS: Bilateral Upper Extremities range of motion - UE Shoulders: decreased flexion 10/29/2017 None Full Exam - Orthopedics MS: Bilateral Upper Extremities range of motion - UE Shoulders: pain with flexion 10/29/2017 None Full Exam - Orthopedics MS: Bilateral Upper Extremities range of motion - UE Shoulders: decreased adduction 10/29/2017 None Full Exam - Orthopedics MS: Bilateral Upper Extremities range of motion - UE Shoulders: decreased extension 10/29/2017 None Full Exam - Orthopedics MS: Bilateral Upper Extremities range of motion - UE Shoulders: decreased forward elevation 10/29/2017 None Full Exam - Orthopedics MS: Bilateral Upper Extremities range of motion - UE Shoulders: decreased external rotation 10/29/2017 None Full Exam - Orthopedics MS: Bilateral Upper Extremities range of motion - UE Shoulders: decreased internal rotation 10/29/2017 None Full Exam - Orthopedics MS: Bilateral Upper Extremities range of motion - UE Shoulders: external rotation 20 degrees 10/29/2017 None Full Exam - General 1994 Constitutional general appearance Overall: well developed 10/20/2017 None Full Exam - General 1994 Constitutional general appearance Overall: in no acute distress 10/20/2017 None Full Exam - General 1994 Constitutional general appearance Overall: well nourished 10/20/2017 None Full Exam - General 1994 Eyes pupils and irises Overall: pupils equal, round, reactive to light and accomodation 10/20/2017 None Full Exam - General 1994 Respiratory auscultation Overall: breath sounds clear bilaterally 10/20/2017 None Full Exam - General 1994 Respiratory respiratory effort/rhythm Overall: no retractions 10/20/2017 None Full Exam - General 1994 Respiratory respiratory effort/rhythm Overall: normal rate 10/20/2017 None Full Exam - General 1994 Cardiovascular extremities Edema present: pitting 10/20/2017 2+ bilateral upper and lower extremities Full Exam - General 1994 Cardiovascular auscultation of heart Overall: regular rate 10/20/2017 None Full Exam - General 1994 Cardiovascular auscultation of heart Overall: normal heart sounds 10/20/2017 None Full Exam - General 1994 Cardiovascular auscultation of heart Overall: no murmurs 10/20/2017 None Full Exam - General 1994 Integument inspection of skin Location: left leg 10/20/2017 ulceration - weeping left anterior leg Full Exam - General 1994 Psychiatric orientation/consciousness Overall: oriented to person, place and time 10/20/2017 None Full Exam - General 1994 Psychiatric mood and affect Overall: normal mood and affect 10/20/2017 None Full Exam - General 1994 Psychiatric mood and affect Mood: happy 10/20/2017 None Full Exam - General 1994 Cardiovascular extremities Edema present: severity 3+ to lower legs and thighs 10/20/2017 None Full Exam - General 1994 Cardiovascular extremities Edema present: to thighs 10/20/2017 None Full Exam - General 1994 Constitutional general appearance Overall: well developed 09/29/2017 None Full Exam - General 1994 Constitutional general appearance Overall: in no acute distress 09/29/2017 None Full Exam - General 1994 Constitutional general appearance Overall: well nourished 09/29/2017 None Full Exam - General 1994 Eyes pupils and irises Overall: pupils equal, round, reactive to light and accomodation 09/29/2017 None Full Exam - General 1994 Respiratory auscultation Overall: breath sounds clear bilaterally 09/29/2017 None Full Exam - General 1994 Respiratory respiratory effort/rhythm Overall: no retractions 09/29/2017 None Full Exam - General 1994 Respiratory respiratory effort/rhythm Overall: normal rate 09/29/2017 None Full Exam - General 1994 Cardiovascular extremities Edema present: pitting 09/29/2017 2+ bilateral upper and lower extremities Full Exam - General 1994 Cardiovascular auscultation of heart Overall: regular rate 09/29/2017 None Full Exam - General 1994 Cardiovascular auscultation of heart Overall: normal heart sounds 09/29/2017 None Full Exam - General 1994 Cardiovascular auscultation of heart Overall: no murmurs 09/29/2017 None Full Exam - General 1994 Psychiatric orientation/consciousness Overall: oriented to person, place and time 09/29/2017 None Full Exam - General 1994 Psychiatric mood and affect Overall: normal mood and affect 09/29/2017 None Full Exam - General 1994 Psychiatric mood and affect Mood: happy 09/29/2017 None Full Exam - General 1994 Integument inspection of skin Location: left leg 09/29/2017 ulceration - weeping left anterior leg Full Exam - General 1994 Constitutional general appearance Overall: well nourished 09/15/2017 None Full Exam - General 1994 Constitutional general appearance Overall: well developed 09/15/2017 None Full Exam - General 1994 Constitutional general appearance Overall: in no acute distress 09/15/2017 None Full Exam - General 1994 Eyes pupils and irises Overall: pupils equal, round, reactive to light and accomodation 09/15/2017 None Full Exam - General 1994 Respiratory auscultation Overall: breath sounds clear bilaterally 09/15/2017 None Full Exam - General 1994 Respiratory respiratory effort/rhythm Overall: normal rate 09/15/2017 None Full Exam - General 1994 Respiratory respiratory effort/rhythm Overall: no retractions 09/15/2017 None Full Exam - General 1994 Cardiovascular auscultation of heart Overall: regular rate 09/15/2017 None Full Exam - General 1994 Cardiovascular auscultation of heart Overall: normal heart sounds 09/15/2017 None Full Exam - General 1994 Cardiovascular auscultation of heart Overall: no murmurs 09/15/2017 None Full Exam - General 1994 Cardiovascular extremities Edema present: pitting 09/15/2017 2+ bilateral upper and lower extremities Full Exam - General 1994 Psychiatric orientation/consciousness Overall: oriented to person, place and time 09/15/2017 None Full Exam - General 1994 Psychiatric mood and affect Mood: happy 09/15/2017 None Full Exam - General 1994 Psychiatric mood and affect Overall: normal mood and affect 09/15/2017 None Full Exam - General 1994 Lymphatic neck nodes Overall: anterior cervical chain benign 09/15/2017 None Full Exam - General 1994 Lymphatic neck nodes Overall: posterior cervical chain benign 09/15/2017 None Full Exam - Orthopedics Constitutional general appearance Overall: well nourished 08/31/2017 None Full Exam - Orthopedics Constitutional general appearance Overall: well developed 08/31/2017 None Full Exam - Orthopedics Eyes conjunctiva/ eyelids Overall: conjunctiva clear 08/31/2017 None Full Exam - Orthopedics Eyes conjunctiva/ eyelids Overall: cornea clear 08/31/2017 None Full Exam - Orthopedics Eyes conjunctiva/ eyelids Overall: eyelids normal 08/31/2017 None Full Exam - Orthopedics Ears/Nose/Throat lips/teeth/gingiva Overall: benign lips 08/31/2017 None Full Exam - Orthopedics Ears/Nose/Throat oral cavity/pharynx/larynx Overall: oral mucosa clear 08/31/2017 None Full Exam - Orthopedics Respiratory auscultation Overall: breath sounds clear bilaterally 08/31/2017 None Full Exam - Orthopedics Respiratory respiratory effort/rhythm Overall: no retractions 08/31/2017 None Full Exam - Orthopedics Respiratory respiratory effort/rhythm Overall: normal rate 08/31/2017 None Full Exam - Orthopedics Cardiovascular examination of vasculature Overall: regular rate and rhythm 08/31/2017 None Full Exam - Orthopedics Cardiovascular examination of vasculature Edema: pitting edema 08/31/2017 3+ bilateral lower extremities to posterior thighs Full Exam - Orthopedics MS: left upper extremity insp & palp - LUE Shoulder: swelling 08/31/2017 tender to palpation - swelling - 250 mL of serosanguanous fluid removed from left shoulder anterior and injection of steroid into shoulder, right shoulder attempted to draw blood, but minimal output and steroid injected into right shoulder Full Exam - Orthopedics MS: right upper extremity insp & palp - RUE Shoulder: swelling 08/31/2017 tender to palpation - swelling with bruising going from shoulder down to mid bicep no fluid extracted today Full Exam - Orthopedics Psychiatric orientation/consciousness Overall: oriented to person, place and time 08/31/2017 None Full Exam - Orthopedics Psychiatric mood and affect Overall: normal mood and affect 08/31/2017 None Full Exam - Orthopedics Constitutional general appearance Overall: well nourished 08/21/2017 None Full Exam - Orthopedics Constitutional general appearance Overall: well developed 08/21/2017 None Full Exam - Orthopedics Eyes conjunctiva/ eyelids Overall: conjunctiva clear 08/21/2017 None Full Exam - Orthopedics Eyes conjunctiva/ eyelids Overall: cornea clear 08/21/2017 None Full Exam - Orthopedics Eyes conjunctiva/ eyelids Overall: eyelids normal 08/21/2017 None Full Exam - Orthopedics Ears/Nose/Throat lips/teeth/gingiva Overall: benign lips 08/21/2017 None Full Exam - Orthopedics Ears/Nose/Throat oral cavity/pharynx/larynx Overall: oral mucosa clear 08/21/2017 None Full Exam - Orthopedics Respiratory auscultation Overall: breath sounds clear bilaterally 08/21/2017 None Full Exam - Orthopedics Respiratory respiratory effort/rhythm Overall: no retractions 08/21/2017 None Full Exam - Orthopedics Respiratory respiratory effort/rhythm Overall: normal rate 08/21/2017 None Full Exam - Orthopedics Cardiovascular examination of vasculature Overall: regular rate and rhythm 08/21/2017 None Full Exam - Orthopedics Cardiovascular examination of vasculature Edema: pitting edema 08/21/2017 3+ bilateral lower extremities to posterior thighs Full Exam - Orthopedics MS: left upper extremity insp & palp - LUE Shoulder: swelling 08/21/2017 tender to palpation - swelling - 120 mL of serosanguanous fluid removed from left shoulder anterior and injection of steroid into shoulder, right shoulder attempted to draw blood, but minimal output and steroid injected into right shoulder Full Exam - Orthopedics MS: right upper extremity insp & palp - RUE Shoulder: swelling 08/21/2017 tender to palpation - swelling with bruising going from shoulder down to mid bicep no fluid extracted today Full Exam - Orthopedics Psychiatric orientation/consciousness Overall: oriented to person, place and time 08/21/2017 None Full Exam - Orthopedics Psychiatric mood and affect Overall: normal mood and affect 08/21/2017 None Full Exam - Orthopedics Constitutional general appearance Overall: well nourished 08/12/2017 None Full Exam - Orthopedics Constitutional general appearance Overall: well developed 08/12/2017 None Full Exam - Orthopedics Eyes conjunctiva/ eyelids Overall: conjunctiva clear 08/12/2017 None Full Exam - Orthopedics Eyes conjunctiva/ eyelids Overall: cornea clear 08/12/2017 None Full Exam - Orthopedics Eyes conjunctiva/ eyelids Overall: eyelids normal 08/12/2017 None Full Exam - Orthopedics Ears/Nose/Throat lips/teeth/gingiva Overall: benign lips 08/12/2017 None Full Exam - Orthopedics Ears/Nose/Throat oral cavity/pharynx/larynx Overall: oral mucosa clear 08/12/2017 None Full Exam - Orthopedics Respiratory auscultation Overall: breath sounds clear bilaterally 08/12/2017 None Full Exam - Orthopedics Respiratory respiratory effort/rhythm Overall: no retractions 08/12/2017 None Full Exam - Orthopedics Respiratory respiratory effort/rhythm Overall: normal rate 08/12/2017 None Full Exam - Orthopedics Cardiovascular examination of vasculature Overall: regular rate and rhythm 08/12/2017 None Full Exam - Orthopedics Cardiovascular examination of vasculature Edema: pitting edema 08/12/2017 3+ bilateral lower extremities to posterior thighs Full Exam - Orthopedics MS: left upper extremity insp & palp - LUE Shoulder: swelling 08/12/2017 tender to palpation - swelling - 250 mL of serosanguanous fluid removed from left shoulder anterior and injection of steroid into shoulder, right shoulder attempted to draw blood, but minimal output and steroid injected into right shoulder Full Exam - Orthopedics MS: right upper extremity insp & palp - RUE Shoulder: swelling 08/12/2017 tender to palpation - swelling with bruising going from shoulder down to mid bicep no fluid extracted today Full Exam - Orthopedics Psychiatric orientation/consciousness Overall: oriented to person, place and time 08/12/2017 None Full Exam - Orthopedics Psychiatric mood and affect Overall: normal mood and affect 08/12/2017 None Full Exam - Orthopedics Constitutional general appearance Overall: well nourished 08/05/2017 None Full Exam - Orthopedics Constitutional general appearance Overall: well developed 08/05/2017 None Full Exam - Orthopedics Eyes conjunctiva/ eyelids Overall: conjunctiva clear 08/05/2017 None Full Exam - Orthopedics Eyes conjunctiva/ eyelids Overall: cornea clear 08/05/2017 None Full Exam - Orthopedics Eyes conjunctiva/ eyelids Overall: eyelids normal 08/05/2017 None Full Exam - Orthopedics Ears/Nose/Throat lips/teeth/gingiva Overall: benign lips 08/05/2017 None Full Exam - Orthopedics Ears/Nose/Throat oral cavity/pharynx/larynx Overall: oral mucosa clear 08/05/2017 None Full Exam - Orthopedics Respiratory auscultation Overall: breath sounds clear bilaterally 08/05/2017 None Full Exam - Orthopedics Respiratory respiratory effort/rhythm Overall: no retractions 08/05/2017 None Full Exam - Orthopedics Respiratory respiratory effort/rhythm Overall: normal rate 08/05/2017 None Full Exam - Orthopedics Cardiovascular examination of vasculature Overall: regular rate and rhythm 08/05/2017 None Full Exam - Orthopedics Cardiovascular examination of vasculature Edema: pitting edema 08/05/2017 3+ bilateral lower extremities to posterior thighs Full Exam - Orthopedics MS: left upper extremity insp & palp - LUE Shoulder: swelling 08/05/2017 tender to palpation - swelling - 250 mL of serosanguanous fluid removed from left shoulder anterior and injection of steroid into shoulder, right shoulder attempted to draw blood, but minimal output and steroid injected into right shoulder Full Exam - Orthopedics MS: right upper extremity insp & palp - RUE Shoulder: swelling 08/05/2017 tender to palpation - swelling with bruising going from shoulder down to mid bicep no fluid extracted today Full Exam - Orthopedics Psychiatric orientation/consciousness Overall: oriented to person, place and time 08/05/2017 None Full Exam - Orthopedics Psychiatric mood and affect Overall: normal mood and affect 08/05/2017 None Full Exam - Orthopedics Constitutional general appearance Overall: well nourished 07/23/2017 None Full Exam - Orthopedics Constitutional general appearance Overall: well developed 07/23/2017 None Full Exam - Orthopedics Eyes conjunctiva/ eyelids Overall: conjunctiva clear 07/23/2017 None Full Exam - Orthopedics Eyes conjunctiva/ eyelids Overall: cornea clear 07/23/2017 None Full Exam - Orthopedics Eyes conjunctiva/ eyelids Overall: eyelids normal 07/23/2017 None Full Exam - Orthopedics Ears/Nose/Throat lips/teeth/gingiva Overall: benign lips 07/23/2017 None Full Exam - Orthopedics Ears/Nose/Throat oral cavity/pharynx/larynx Overall: oral mucosa clear 07/23/2017 None Full Exam - Orthopedics Respiratory auscultation Overall: breath sounds clear bilaterally 07/23/2017 None Full Exam - Orthopedics Respiratory respiratory effort/rhythm Overall: no retractions 07/23/2017 None Full Exam - Orthopedics Respiratory respiratory effort/rhythm Overall: normal rate 07/23/2017 None Full Exam - Orthopedics Cardiovascular examination of vasculature Overall: regular rate and rhythm 07/23/2017 None Full Exam - Orthopedics Cardiovascular examination of vasculature Edema: pitting edema 07/23/2017 3+ bilateral lower extremities to posterior thighs Full Exam - Orthopedics MS: left upper extremity insp & palp - LUE Shoulder: swelling 07/23/2017 tender to palpation - swelling - 200 mL of serosanguanous fluid removed from shoulder anteriorly Full Exam - Orthopedics MS: right upper extremity insp & palp - RUE Shoulder: swelling 07/23/2017 tender to palpation - swelling with bruising going from shoulder down to mid bicep no fluid extracted today Full Exam - Orthopedics Psychiatric orientation/consciousness Overall: oriented to person, place and time 07/23/2017 None Full Exam - Orthopedics Psychiatric mood and affect Overall: normal mood and affect 07/23/2017 None Full Exam - Orthopedics Constitutional general appearance Overall: well nourished 07/09/2017 None Full Exam - Orthopedics Constitutional general appearance Overall: well developed 07/09/2017 None Full Exam - Orthopedics Eyes conjunctiva/ eyelids Overall: conjunctiva clear 07/09/2017 None Full Exam - Orthopedics Eyes conjunctiva/ eyelids Overall: cornea clear 07/09/2017 None Full Exam - Orthopedics Eyes conjunctiva/ eyelids Overall: eyelids normal 07/09/2017 None Full Exam - Orthopedics Ears/Nose/Throat lips/teeth/gingiva Overall: benign lips 07/09/2017 None Full Exam - Orthopedics Ears/Nose/Throat oral cavity/pharynx/larynx Overall: oral mucosa clear 07/09/2017 None Full Exam - Orthopedics Respiratory auscultation Overall: breath sounds clear bilaterally 07/09/2017 None Full Exam - Orthopedics Respiratory respiratory effort/rhythm Overall: no retractions 07/09/2017 None Full Exam - Orthopedics Respiratory respiratory effort/rhythm Overall: normal rate 07/09/2017 None Full Exam - Orthopedics Cardiovascular examination of vasculature Overall: regular rate and rhythm 07/09/2017 None Full Exam - Orthopedics Cardiovascular examination of vasculature Edema: pitting edema 07/09/2017 3+ bilateral lower extremities to posterior thighs Full Exam - Orthopedics MS: left upper extremity insp & palp - LUE Shoulder: swelling 07/09/2017 tender to palpation - swelling - 200 mL of serosanguanous fluid removed from shoulder anteriorly Full Exam - Orthopedics MS: right upper extremity insp & palp - RUE Shoulder: swelling 07/09/2017 tender to palpation - swelling with bruising going from shoulder down to mid bicep no fluid extracted today Full Exam - Orthopedics Psychiatric orientation/consciousness Overall: oriented to person, place and time 07/09/2017 None Full Exam - Orthopedics Psychiatric mood and affect Overall: normal mood and affect 07/09/2017 None Full Exam - Orthopedics Constitutional general appearance Overall: well nourished 07/01/2017 None Full Exam - Orthopedics Constitutional general appearance Overall: well developed 07/01/2017 None Full Exam - Orthopedics Eyes conjunctiva/ eyelids Overall: conjunctiva clear 07/01/2017 None Full Exam - Orthopedics Eyes conjunctiva/ eyelids Overall: cornea clear 07/01/2017 None Full Exam - Orthopedics Eyes conjunctiva/ eyelids Overall: eyelids normal 07/01/2017 None Full Exam - Orthopedics Ears/Nose/Throat lips/teeth/gingiva Overall: benign lips 07/01/2017 None Full Exam - Orthopedics Ears/Nose/Throat oral cavity/pharynx/larynx Overall: oral mucosa clear 07/01/2017 None Full Exam - Orthopedics Respiratory auscultation Overall: breath sounds clear bilaterally 07/01/2017 None Full Exam - Orthopedics Respiratory respiratory effort/rhythm Overall: no retractions 07/01/2017 None Full Exam - Orthopedics Respiratory respiratory effort/rhythm Overall: normal rate 07/01/2017 None Full Exam - Orthopedics Cardiovascular examination of vasculature Overall: regular rate and rhythm 07/01/2017 None Full Exam - Orthopedics MS: left upper extremity insp & palp - LUE Shoulder: swelling 07/01/2017 tender to palpation - swelling - 200 mL of serosanguanous fluid removed from shoulder anteriorly Full Exam - Orthopedics MS: right upper extremity insp & palp - RUE Shoulder: swelling 07/01/2017 tender to palpation - swelling with bruising going from shoulder down to mid bicep no fluid extracted today Full Exam - Orthopedics Psychiatric orientation/consciousness Overall: oriented to person, place and time 07/01/2017 None Full Exam - Orthopedics Psychiatric mood and affect Overall: normal mood and affect 07/01/2017 None Full Exam - Orthopedics Cardiovascular examination of vasculature Edema: pitting edema 07/01/2017 3+ bilateral lower extremities to posterior thighs Full Exam - Orthopedics Constitutional general appearance Overall: well nourished 06/24/2017 None Full Exam - Orthopedics Constitutional general appearance Overall: well developed 06/24/2017 None Full Exam - Orthopedics Eyes conjunctiva/ eyelids Overall: conjunctiva clear 06/24/2017 None Full Exam - Orthopedics Eyes conjunctiva/ eyelids Overall: cornea clear 06/24/2017 None Full Exam - Orthopedics Eyes conjunctiva/ eyelids Overall: eyelids normal 06/24/2017 None Full Exam - Orthopedics Ears/Nose/Throat lips/teeth/gingiva Overall: benign lips 06/24/2017 None Full Exam - Orthopedics Ears/Nose/Throat oral cavity/pharynx/larynx Overall: oral mucosa clear 06/24/2017 None Full Exam - Orthopedics Respiratory auscultation Overall: breath sounds clear bilaterally 06/24/2017 None Full Exam - Orthopedics Respiratory respiratory effort/rhythm Overall: no retractions 06/24/2017 None Full Exam - Orthopedics Respiratory respiratory effort/rhythm Overall: normal rate 06/24/2017 None Full Exam - Orthopedics Cardiovascular examination of vasculature Overall: regular rate and rhythm 06/24/2017 None Full Exam - Orthopedics MS: left upper extremity insp & palp - LUE Shoulder: swelling 06/24/2017 tender to palpation - swelling - - not enough to drain today Full Exam - Orthopedics MS: right upper extremity insp & palp - RUE Shoulder: swelling 06/24/2017 tender to palpation - swelling with bruising going from shoulder down to mid bicep lateral deltoid region with hematoma Full Exam - Orthopedics Psychiatric orientation/consciousness Overall: oriented to person, place and time 06/24/2017 None Full Exam - Orthopedics Psychiatric mood and affect Overall: normal mood and affect 06/24/2017 None Full Exam - Orthopedics Constitutional general appearance Overall: well nourished 06/17/2017 None Full Exam - Orthopedics Constitutional general appearance Overall: well developed 06/17/2017 None Full Exam - Orthopedics Eyes conjunctiva/ eyelids Overall: conjunctiva clear 06/17/2017 None Full Exam - Orthopedics Eyes conjunctiva/ eyelids Overall: cornea clear 06/17/2017 None Full Exam - Orthopedics Eyes conjunctiva/ eyelids Overall: eyelids normal 06/17/2017 None Full Exam - Orthopedics Ears/Nose/Throat lips/teeth/gingiva Overall: benign lips 06/17/2017 None Full Exam - Orthopedics Ears/Nose/Throat oral cavity/pharynx/larynx Overall: oral mucosa clear 06/17/2017 None Full Exam - Orthopedics Respiratory auscultation Overall: breath sounds clear bilaterally 06/17/2017 None Full Exam - Orthopedics Respiratory respiratory effort/rhythm Overall: no retractions 06/17/2017 None Full Exam - Orthopedics Respiratory respiratory effort/rhythm Overall: normal rate 06/17/2017 None Full Exam - Orthopedics Cardiovascular examination of vasculature Overall: regular rate and rhythm 06/17/2017 None Full Exam - Orthopedics MS: left upper extremity insp & palp - LUE Shoulder: swelling 06/17/2017 tender to palpation - swelling - 180 mL of serosanguanous fluid removed from shoulder anteriorly Full Exam - Orthopedics MS: right upper extremity insp & palp - RUE Shoulder: swelling 06/17/2017 tender to palpation - swelling with bruising going from shoulder down to mid bicep - removal of 55 mL of blood from right shoulder laterally Full Exam - Orthopedics Psychiatric orientation/consciousness Overall: oriented to person, place and time 06/17/2017 None Full Exam - Orthopedics Psychiatric mood and affect Overall: normal mood and affect 06/17/2017 None Full Exam - Orthopedics MS: right upper extremity insp & palp - RUE Shoulder: swelling 06/01/2017 tender to palpation - swelling with bruising going from shoulder down to mid bicep Full Exam - Orthopedics Constitutional general appearance Overall: well nourished 06/01/2017 None Full Exam - Orthopedics Constitutional general appearance Overall: well developed 06/01/2017 None Full Exam - Orthopedics Eyes conjunctiva/ eyelids Overall: conjunctiva clear 06/01/2017 None Full Exam - Orthopedics Eyes conjunctiva/ eyelids Overall: cornea clear 06/01/2017 None Full Exam - Orthopedics Eyes conjunctiva/ eyelids Overall: eyelids normal 06/01/2017 None Full Exam - Orthopedics Ears/Nose/Throat lips/teeth/gingiva Overall: benign lips 06/01/2017 None Full Exam - Orthopedics Ears/Nose/Throat oral cavity/pharynx/larynx Overall: oral mucosa clear 06/01/2017 None Full Exam - Orthopedics Respiratory respiratory effort/rhythm Overall: normal rate 06/01/2017 None Full Exam - Orthopedics Respiratory respiratory effort/rhythm Overall: no retractions 06/01/2017 None Full Exam - Orthopedics Respiratory auscultation Overall: breath sounds clear bilaterally 06/01/2017 None Full Exam - Orthopedics Cardiovascular examination of vasculature Overall: regular rate and rhythm 06/01/2017 None Full Exam - Orthopedics MS: left upper extremity insp & palp - LUE Shoulder: swelling 06/01/2017 tender to palpation - swelling with bruising going from shoulder down arm and into left breast Full Exam - Orthopedics Psychiatric orientation/consciousness Overall: oriented to person, place and time 06/01/2017 None Full Exam - Orthopedics Psychiatric mood and affect Overall: normal mood and affect 06/01/2017 None Full Exam - Orthopedics MS: right [...] clear 01/08/2017 None Full Exam - General 1995 Ears/Nose/Throat oral cavity/pharynx/larynx Overall: hypopharynx benign 01/08/2017 [...] dentition 12/08/2016 None Full Exam - General 1995 Ears/Nose/Throat oral cavity/pharynx/larynx Overall: oral mucosa clear [...] General 1994 Cardiovascular extremities Overall: no clubbing 11/10/2016 None [...] impaction 11/05/2016 None Full Exam - General 1994 Ears/Nose/Throat lips/teeth/gingiva Overall: benign lips 11/05/2016 None [...] accomodation 05/28/2016 None Full Exam - General 1994 Ears/Nose/Throat otoscopic exam Overall: tympanic membranes clear 05/28/2016 None Full Exam - General 1994 Ears/Nose/Throat otoscopic exam External auditory canal: complete cerumen impaction 05/28/2016 None Full Exam - General 1994 Ears/Nose/Throat lips/teeth/gingiva Overall: benign lips 05/28/2016 None Full Exam - General 1994 Ears/Nose/Throat lips/teeth/gingiva Overall: normal dentition 05/28/2016 None Full Exam - General 1994 Ears/Nose/Throat oral cavity/pharynx/larynx Overall: oral mucosa clear 05/28/2016 None Full Exam - General 1994 Ears/Nose/Throat oral cavity/pharynx/larynx Overall: oropharyngeal mucosa clear 05/28/2016 None Full Exam - General 1994 Ears/Nose/Throat oral cavity/pharynx/larynx Overall: hypopharynx benign 05/28/2016 None Full Exam - General 1994 Ears/Nose/Throat oral cavity/pharynx/larynx Overall: no masses 05/28/2016 [...] affect 07/12/2014 None Procedures Procedure Codes Date PRESCRIP TRANSMIT VIA ERX SY CPT-4: G8553 01/14/2018 DRAIN/INJECT JOINT/BURSA CPT-4: 61772 08/21/2017 DRAIN/INJECT JOINT/BURSA CPT-4: 29943 08/12/2017 TRIAMCINOLONE ACET INJ NOS CPT-4: J3301 08/12/2017 DRAIN/INJECT JOINT/BURSA CPT-4: 93410 08/05/2017 TRIAMCINOLONE ACET INJ NOS CPT-4: J3301 08/05/2017 DRAIN/INJECT JOINT/BURSA CPT-4: 83555 07/23/2017 DRAIN/INJECT JOINT/BURSA CPT-4: 66724 07/09/2017 TRIAMCINOLONE ACET INJ NOS CPT-4: J3301 07/09/2017 PRESCRIP TRANSMIT VIA ERX SY CPT-4: G8553 07/09/2017 DRAIN/INJECT JOINT/BURSA CPT-4: 06609 07/01/2017 TRIAMCINOLONE ACET INJ NOS CPT-4: J3301 07/01/2017 PRESCRIP TRANSMIT VIA ERX SY CPT-4: G8553 07/01/2017 DRAIN/INJECT JOINT/BURSA CPT-4: 16877 06/17/2017 DRAIN/INJECT JOINT/BURSA CPT-4: 85292 04/02/2017 TRIAMCINOLONE ACET INJ NOS CPT-4: J3301 04/02/2017 DRAIN/INJECT JOINT/BURSA CPT-4: 65673 02/06/2017 ADMIN INFLUENZA VIRUS VAC CPT-4: G0008 12/08/2016 FLU VACC PRSV FREE INC ANTIG CPT-4: 79457 12/08/2016 PRESCRIP TRANSMIT VIA ERX SY CPT-4: G8553 12/08/2016 PRESCRIP TRANSMIT VIA ERX SY CPT-4: G8553 11/17/2016 TRIAMCINOLONE ACET INJ NOS CPT-4: J3301 10/02/2016 TRIAMCINOLONE ACET INJ NOS CPT-4: J3301 09/12/2016 DRAIN/INJECT JOINT/BURSA CPT-4: 24447 09/08/2016 TRIAMCINOLONE ACET INJ NOS CPT-4: J3301 09/08/2016 PRESCRIP TRANSMIT VIA ERX SY CPT-4: G8553 08/26/2016 PRESCRIP TRANSMIT VIA ERX SY CPT-4: G8553 08/18/2016 ADMIN INFLUENZA VIRUS VAC CPT-4: G0008 11/19/2015 FLU VACC PRSV FREE INC ANTIG Formatting Model/CDA Sections, Assigned to/Luanne Elaine CPT-4: 65071Ezqorey 11/19/2015 PRESCRIP TRANSMIT VIA ERX SY CPT-4: G8553 09/04/2015 PRESCRIP TRANSMIT VIA ERX SY CPT-4: G8553 2015 PRESCRIP TRANSMIT VIA ERX SY CPT-4: G8553 07/18/2015 PRESCRIP TRANSMIT VIA ERX SY CPT-4: G8553 07/02/2015 REMOVE IMPACTED EAR WAX UNI CPT-4: 00788 04/09/2015 PRESCRIP TRANSMIT VIA ERX SY CPT-4: G8553 02/08/2015 ADMIN INFLUENZA VIRUS VAC CPT-4: G0008 01/10/2015 FLU VACC PRSV FREE INC ANTIG Formatting Model/CDA Sections, Assigned to/Luanne Elaine CPT-4: 30166Pyjhmeg 01/10/2015 ADMIN PNEUMOCOCCAL VACCINE Formatting Model/CDA Sections, Assigned to SNOMED CT: [id number] CPT-4: V3799Khwmoyi 12/11/2014 PNEUMOCOCCAL VACC [address]: 49085646 CPT-4: 95783 12/11/2014 Vital Signs Date Vital 01/14/2018 Blood Pressure 1: 120/60 Code : 8480-6 Height: Weight: 161 lbs 12/24/2017 Blood Pressure 1: 115/58 Code : 8480-6 BMI: 23.5 Code : 86935-5 Heart Rate 1 : 58 bpm Height: 5'8" SpO2: 96% Weight: 152 lbs 11/30/2017 Blood Pressure 1: 122/70 Code : 8480-6 Heart Rate 1: 105 bpm Height: 5'8" SpO2: 98% Weight: 11/27/2017 Blood Pressure 1: 148/76 Code : 8480-6 Heart Rate 1: 72 bpm Height: 5'8" SpO2: 99% Weight: 11/10/2017 Blood Pressure 1: 130/76 Code : 8480-6 BMI: 27.3 Code : 30693-5 Heart Rate 1 : 98 bpm Height: 5'8" SpO2: 96% Weight: 177 lbs 10/29/2017 Blood Pressure 1: 124/72 Code : 8480-6 Heart Rate 1: 91 bpm Height: SpO2: 94% Weight: 10/20/2017 Blood Pressure 1: 120/62 Code : 8480-6 Heart Rate 1: 100 bpm Height: SpO2: 96% Weight: 09/29/2017 Blood Pressure 1: 124/68 Code : 8480-6 Heart Rate 1: 110 bpm Height: SpO2: 99% Weight: 09/15/2017 Blood Pressure 1: 122/68 Code : 8480-6 BMI: 24.7 Code : 39253-0 Heart Rate 1 : 100 bpm Height: 5'8" SpO2: 95% Weight: 160 lbs 08/31/2017 Blood Pressure 1: 128/78 Code : 8480-6 BMI: 23.6 Code : 62924-2 Heart Rate 1 : 102 bpm Height: 5'8" SpO2: 96% Weight: 153 lbs 08/21/2017 Blood Pressure 1: 138/78 Code : 8480-6 Heart Rate 1: 97 bpm SpO2: 95% Weight: 156 lbs 2 oz 08/12/2017 Blood Pressure 1: 138/74 Code : 8480-6 BMI: 25.0 Code : 42306-9 Heart Rate 1 : 94 bpm Height: 5'8" SpO2: 98% Weight: 162 lbs 08/05/2017 Blood Pressure 1: 126/78 Code : 8480-6 BMI: 25.8 Code : 16722-7 Heart Rate 1 : 74 bpm Height: 5'8" SpO2: 96% Weight: 167 lbs 07/23/2017 Blood Pressure 1: 106/64 Code : 8480-6 BMI: 25.3 Code : 80094-5 Heart Rate 1 : 81 bpm Height: 5'8" SpO2: 99% Weight: 163 lbs 14 oz 07/09/2017 Blood Pressure 1: 130/68 Code : 8480-6 Heart Rate 1: 82 bpm Height: 5'8" SpO2: 98% Weight: 07/01/2017 Blood Pressure 1: 124/76 Code : 8480-6 BMI: 26.5 Code : 79072-1 Heart Rate 1 : 99 bpm Height: 5'8" SpO2: 98% Weight: 172 lbs 06/24/2017 Blood Pressure 1: 118/70 Code : 8480-6 Heart Rate 1: 103 bpm Height: 5'8" SpO2: 98% Weight: 06/17/2017 Blood Pressure 1: 110/64 Code : 8480-6 BMI: 25.0 Code : 70072-8 Heart Rate 1 : 73 bpm Height: 5'8" Weight: 162 lbs 06/01/2017 Blood Pressure 1: 158/84 Code : 8480-6 BMI: 24.4 Code : 64234-5 Heart Rate 1 : 94 bpm Height: 5'8" SpO2: 95% Weight: 158 lbs 04/02/2017 Blood Pressure 1: 164/80 Code : 8480-6 BMI: 23.1 Code : 63167-6 Heart Rate 1 : 76 bpm Height: 5'8" SpO2: 94% Weight: 150 lbs 03/12/2017 Blood Pressure 1: 130/74 Code : 8480-6 BMI: 23.0 Code : 23928-8 Heart Rate 1 : 92 bpm Height: 5'8" SpO2: 94% Weight: 149 lbs 02/06/2017 Height: Weight: 01/08/2017 Blood Pressure 1: 136/76 Code : 8480-6 BMI: 21.4 Code : 83393-4 Heart Rate 1 : 85 bpm Height: 5'8" SpO2: 98% Weight: 138 lbs 8 oz 12/08/2016 Blood Pressure 1: 132/66 Code : 8480-6 BMI: 22.2 Code : 19083-2 Heart Rate 1 : 106 bpm Height: 5'8" SpO2: 97% Weight: 144 lbs 11/17/2016 Blood Pressure 1: 146/80 Code : 8480-6 BMI: 22.4 Code : 09348-8 Heart Rate 1 : 100 bpm Height: 5'8" SpO2: 98% Weight: 145 lbs 11/10/2016 Blood Pressure 1: 122/62 Code : 8480-6 BMI: 22.2 Code : 67667-8 Height: 5'8" Weight: 144 lbs 11/05/2016 Blood Pressure 1: 14680 Code : 8480-6 BMI: 22.2 Code : 10448-9 Heart Rate 1 : 77 bpm Height: 5'8" SpO2: 99% Weight: 144 lbs 10/07/2016 Blood Pressure 1: 132/68 Code : 8480-6 BMI: 22.8 Code : 12345-7 Heart Rate 1 : 90 bpm Height: 5'8" SpO2: 97% Weight: 148 lbs 10/02/2016 Blood Pressure 1: 166/86 Code : 8480-6 BMI: 22.8 Code : 02169-4 Heart Rate 1 : 96 bpm Height: 5'8" SpO2: 96% Weight: 148 lbs 09/12/2016 Blood Pressure 1: 130/86 Code : 8480-6 Height: Weight: 09/08/2016 Blood Pressure 1: 132/74 Code : 8480-6 BMI: 22.4 Code : 79456-8 Heart Rate 1 : 93 bpm Height: 5'8" SpO2: 99% Weight: 145 lbs 08/26/2016 Blood Pressure 1: 132/78 Code : 8480-6 BMI: 23.9 Code : 64766-5 Heart Rate 1 : 80 bpm Height: 5'8" SpO2: 94% Weight: 155 lbs 08/18/2016 Blood Pressure 1: 130/70 Code : 8480-6 BMI: 23.6 Code : 36294-5 Heart Rate 1 : 100 bpm Height: 5'8" SpO2: 94% Weight: 153 lbs 07/30/2016 Blood Pressure 1: 144/84 Code : 8480-6 BMI: 22.4 Code : 18243-4 Heart Rate 1 : 86 bpm Height: 5'8" SpO2: 97% Weight: 145 lbs 07/14/2016 Blood Pressure 1: 122/74 Code : 8480-6 BMI: 22.5 Code : 56988-3 Heart Rate 1 : 87 bpm Height: 5'8" SpO2: 97% Weight: 146 lbs 07/04/2016 Blood Pressure 1: 128/78 Code : 8480-6 BMI: 22.5 Code : 20151-7 Heart Rate 1 : 98 bpm Height: 5'8" Weight: 146 lbs 06/26/2016 Blood Pressure 1: 122/68 Code : 8480-6 BMI: 22.5 Code : 82552-9 Heart Rate 1 : 102 bpm Height: 5'8" SpO2: 98% Weight: 146 lbs 05/28/2016 Blood Pressure 1: 122/68 Code : 8480-6 BMI: 22.4 Code : 68635-5 Heart Rate 1 : 89 bpm Height: 5'8" SpO2: 97% Weight: 145 lbs 03/18/2016 Blood Pressure 1: 132/66 Code : 8480-6 BMI: 22.8 Code : 90429-6 Heart Rate 1 : 96 bpm Height: 5'8" SpO2: 98% Weight: 148 lbs 01/29/2016 Blood Pressure 1: 122/66 Code : 8480-6 BMI: 22.2 Code : 40065-4 Heart Rate 1 : 90 bpm Height: 5'8" SpO2: 99% Weight: 144 lbs 01/01/2016 Blood Pressure 1: 148/82 Code : 8480-6 BMI: 22.5 Code : 36252-1 Heart Rate 1 : 82 bpm Height: 5'8" Weight: 146 lbs 11/19/2015 Blood Pressure 1: 140/74 Code : 8480-6 BMI: 23.7 Code : 95990-0 Heart Rate 1 : 79 bpm Height: 5'8" SpO2: 96% Weight: 153 lbs 8 oz 11/01/2015 Blood Pressure 1: 118/72 Code : 8480-6 Heart Rate 1: 90 bpm Height: 5'8" SpO2: 95% 09/04/2015 Blood Pressure 1: 136/72 Code : 8480-6 BMI: 23.1 Code : 60603-1 Heart Rate 1 : 97 bpm Height: 5'8" SpO2: 98% Weight: 149 lbs 8 oz 2015 Blood Pressure 1: 144/76 Code : 8480-6 BMI: 22.8 Code : 23843-7 Heart Rate 1 : 75 bpm Height: 5'8" SpO2: 97% Weight: 148 lbs 07/18/2015 Blood Pressure 1: 132/60 Code : 8480-6 BMI: 23.1 Code : 68077-1 Heart Rate 1 : 78 bpm Height: 5'8" Weight: 150 lbs 07/02/2015 Blood Pressure 1: 156/86 Code : 8480-6 BMI: 23.0 Code : 37405-7 Heart Rate 1 : 75 bpm Height: 5'8" SpO2: 99% Weight: 149 lbs 05/31/2015 Blood Pressure 1: 136/72 Code : 8480-6 BMI: 22.7 Code : 19717-0 Heart Rate 1 : 85 bpm Height: 5'8" SpO2: 97% Weight: 147 lbs 04/09/2015 Blood Pressure 1: 118/60 Code : 8480-6 BMI: 22.7 Code : 68044-9 Heart Rate 1 : 72 bpm Height: 5'8" SpO2: 95% Weight: 147 lbs 02/08/2015 Blood Pressure 1: 138/76 Code : 8480-6 BMI: 23.1 Code : 36629-0 Heart Rate 1 : 80 bpm Height: 5'8" SpO2: 98% Weight: 150 lbs 12/11/2014 Blood Pressure 1: 120/74 Code : 8480-6 BMI: 22.1 Code : 49364-9 Heart Rate 1 : 92 bpm Height: 5'8" SpO2: 96% Weight: 143 lbs 11/09/2014 Blood Pressure 1: 100/64 Code : 8480-6 BMI: 21.6 Code : 64518-9 Heart Rate 1 : 88 bpm Height: 5'8" Weight: 140 lbs 10/23/2014 Blood Pressure 1: 138/82 Code : 8480-6 BMI: 23.6 Code : 88430-1 Heart Rate 1 : 86 bpm Height: 5'8" Weight: 153 lbs 10/16/2014 Blood Pressure 1: 128/60 Code : 8480-6 BMI: 23.3 Code : 46186-7 Heart Rate 1 : 91 bpm Height: 5'8" SpO2: 99% Weight: 151 lbs 10/09/2014 Blood Pressure 1: 120/60 Code : 8480-6 BMI: 23.0 Code : 35429-0 Heart Rate 1 : 96 bpm Height: 5'8" SpO2: 97% Weight: 149 lbs 09/14/2014 Blood Pressure 1: 132/72 Code : 8480-6 BMI: 22.1 Code : 81060-0 Heart Rate 1 : 84 bpm Height: 5'8" SpO2: 97% Weight: 143 lbs 08/11/2014 Blood Pressure 1: 134/74 Code : 8480-6 BMI: 24.1 Code : 13240-7 Heart Rate 1 : 88 bpm Height: 5'8" Weight: 156 lbs 07/12/2014 Blood Pressure 1: 122/62 Code : 8480-6 BMI: 22.7 Code : 77760-4 Heart Rate 1 : 76 bpm Height: 5'8" Weight: 147 lbs Functional Status No Functional Status data History of Present Illness Symptom Name Status Result Effective Date Notes edema Onset and Resolution sudden in onset 01/14/2018 None edema Onset of Symptom 3 days ago 01/14/2018 None edema Limitation on Activities moderately limits activities 01/14/2018 None edema Frequency of Episodes increasing 01/14/2018 None edema Significant Past Medical History cardiac disease 01/14/2018 None edema Significant Medications diuretics 01/14/2018 None edema Pertinent Findings Denies limb redness 01/14/2018 None edema Location on the left leg 01/14/2018 None edema Location on the right leg 01/14/2018 None edema Quality constant 01/14/2018 None edema Quality painful 01/14/2018 None edema Pertinent Findings Denies dyspnea 01/14/2018 None Hospital Follow Up Onset of Symptom 3 weeks ago 12/24/2017 None Hospital Follow Up _ Other: lymphedema 12/24/2017 None Hospital Follow Up Quality chronic illness 12/24/2017 None Hospital Follow Up Severity moderate 12/24/2017 None Hospital Follow Up Pertinent Findings pain 12/24/2017 None Hospital Follow Up Unchanged by these Factors medication 12/24/2017 None rheumatoid arthritis Frequency of Episodes daily 11/30/2017 None rheumatoid arthritis Location on the left 11/30/2017 shoulder rheumatoid arthritis Location on the right 11/30/2017 shoulder rheumatoid arthritis Onset and Resolution ongoing 11/30/2017 None rheumatoid arthritis Quality chronic 11/30/2017 None rheumatoid arthritis Pertinent Findings stiffness 11/30/2017 None rheumatoid arthritis Pertinent Findings swelling 11/30/2017 None edema Onset and Resolution ongoing 11/30/2017 None edema Frequency of Episodes daily 11/30/2017 None edema Location diffusely 11/30/2017 None shoulder pain Location on both shoulders 11/30/2017 None shoulder pain Quality aching 11/30/2017 None shoulder pain Quality constant 11/30/2017 None shoulder pain Quality throbbing 11/30/2017 None shoulder pain Onset and Resolution ongoing 11/30/2017 None shoulder pain Onset of Symptom months ago 11/30/2017 None shoulder pain Limitation on Activities moderately limits activities 11/30/2017 None shoulder pain Pertinent Findings limited range of motion 11/30/2017 None shoulder pain Pertinent Findings point tenderness 11/30/2017 None shoulder pain Pertinent Findings stiffness 11/30/2017 None shoulder pain Pertinent Findings swelling 11/30/2017 None shoulder pain Pertinent Findings loss of range of motion 11/30/2017 None shoulder pain Pertinent Findings loss of strength 11/30/2017 None back pain Location lumbar-sacral spine 11/30/2017 None back pain Quality intermittent 11/30/2017 None back pain Onset and Resolution ongoing 11/30/2017 None back pain Frequency of Episodes daily 11/30/2017 None edema Quality worsening 11/30/2017 None edema Onset and Resolution sudden in onset 11/27/2017 None edema Onset of Symptom 3 days ago 11/27/2017 None edema Pertinent Findings Denies limb redness 11/27/2017 None edema Location on the left leg 11/27/2017 None edema Location on the right leg 11/27/2017 None edema Quality constant 11/27/2017 None edema Quality painful 11/27/2017 None edema Limitation on Activities moderately limits activities 11/27/2017 None edema Frequency of Episodes increasing 11/27/2017 None edema Significant Past Medical History cardiac disease 11/27/2017 None edema Significant Medications diuretics 11/27/2017 None rheumatoid arthritis Length of Episodes _ weeks 11/10/2017 None rheumatoid arthritis Frequency of Episodes daily 11/10/2017 None rheumatoid arthritis Location on the left 11/10/2017 shoulder rheumatoid arthritis Location on the right 11/10/2017 shoulder rheumatoid arthritis Onset and Resolution ongoing 11/10/2017 None rheumatoid arthritis Quality chronic 11/10/2017 None rheumatoid arthritis Pertinent Findings stiffness 11/10/2017 None rheumatoid arthritis Pertinent Findings swelling 11/10/2017 None edema Onset and Resolution ongoing 11/10/2017 None edema Frequency of Episodes daily 11/10/2017 None edema Frequency of Episodes unchanged 11/10/2017 None edema Location diffusely 11/10/2017 None shoulder pain Location on both shoulders 11/10/2017 None shoulder pain Quality aching 11/10/2017 None shoulder pain Quality constant 11/10/2017 None shoulder pain Quality throbbing 11/10/2017 None shoulder pain Onset and Resolution ongoing 11/10/2017 None shoulder pain Onset of Symptom months ago 11/10/2017 None shoulder pain Limitation on Activities moderately limits activities 11/10/2017 None shoulder pain Pertinent Findings limited range of motion 11/10/2017 None shoulder pain Pertinent Findings point tenderness 11/10/2017 None shoulder pain Pertinent Findings stiffness 11/10/2017 None shoulder pain Pertinent Findings swelling 11/10/2017 None shoulder pain Pertinent Findings loss of range of motion 11/10/2017 None shoulder pain Pertinent Findings loss of strength 11/10/2017 None back pain Location lumbar-sacral spine 11/10/2017 None back pain Quality intermittent 11/10/2017 None back pain Onset and Resolution ongoing 11/10/2017 None back pain Frequency of Episodes daily 11/10/2017 None rheumatoid arthritis Frequency of Episodes daily 10/29/2017 None rheumatoid arthritis Location on the left 10/29/2017 shoulder rheumatoid arthritis Location on the right 10/29/2017 shoulder rheumatoid arthritis Onset and Resolution ongoing 10/29/2017 None rheumatoid arthritis Quality chronic 10/29/2017 None rheumatoid arthritis Pertinent Findings stiffness 10/29/2017 None rheumatoid arthritis Pertinent Findings swelling 10/29/2017 None edema Onset and Resolution ongoing 10/29/2017 None edema Frequency of Episodes daily 10/29/2017 None edema Frequency of Episodes unchanged 10/29/2017 None edema Location diffusely 10/29/2017 None shoulder pain Location on both shoulders 10/29/2017 None shoulder pain Quality aching 10/29/2017 None shoulder pain Quality constant 10/29/2017 None shoulder pain Quality throbbing 10/29/2017 None shoulder pain Onset and Resolution ongoing 10/29/2017 None shoulder pain Onset of Symptom months ago 10/29/2017 None shoulder pain Limitation on Activities moderately limits activities 10/29/2017 None shoulder pain Pertinent Findings limited range of motion 10/29/2017 None shoulder pain Pertinent Findings point tenderness 10/29/2017 None shoulder pain Pertinent Findings stiffness 10/29/2017 None shoulder pain Pertinent Findings swelling 10/29/2017 None shoulder pain Pertinent Findings loss of range of motion 10/29/2017 None shoulder pain Pertinent Findings loss of strength 10/29/2017 None rheumatoid arthritis Length of Episodes _ weeks 10/29/2017 None back pain Location lumbar-sacral spine 10/29/2017 None back pain Quality intermittent 10/29/2017 None back pain Onset and Resolution ongoing 10/29/2017 None back pain Frequency of Episodes daily 10/29/2017 None rheumatoid arthritis Frequency of Episodes daily 10/20/2017 None rheumatoid arthritis Location on the left 10/20/2017 shoulder rheumatoid arthritis Location on the right 10/20/2017 shoulder rheumatoid arthritis Onset and Resolution ongoing 10/20/2017 None rheumatoid arthritis Quality chronic 10/20/2017 None rheumatoid arthritis Pertinent Findings stiffness 10/20/2017 None rheumatoid arthritis Pertinent Findings swelling 10/20/2017 None edema Onset and Resolution ongoing 10/20/2017 None edema Frequency of Episodes daily 10/20/2017 None edema Frequency of Episodes unchanged 10/20/2017 None edema Location diffusely 10/20/2017 None shoulder pain Location on both shoulders 10/20/2017 None shoulder pain Quality aching 10/20/2017 None shoulder pain Quality constant 10/20/2017 None shoulder pain Quality throbbing 10/20/2017 None shoulder pain Onset and Resolution ongoing 10/20/2017 None shoulder pain Onset of Symptom months ago 10/20/2017 None shoulder pain Limitation on Activities moderately limits activities 10/20/2017 None shoulder pain Pertinent Findings limited range of motion 10/20/2017 None shoulder pain Pertinent Findings point tenderness 10/20/2017 None shoulder pain Pertinent Findings stiffness 10/20/2017 None shoulder pain Pertinent Findings swelling 10/20/2017 None shoulder pain Pertinent Findings loss of range of motion 10/20/2017 None shoulder pain Pertinent Findings loss of strength 10/20/2017 None rheumatoid arthritis Frequency of Episodes daily 09/29/2017 None rheumatoid arthritis Location on the left 09/29/2017 shoulder rheumatoid arthritis Location on the right 09/29/2017 shoulder rheumatoid arthritis Onset and Resolution ongoing 09/29/2017 None rheumatoid arthritis Quality chronic 09/29/2017 None rheumatoid arthritis Pertinent Findings stiffness 09/29/2017 None rheumatoid arthritis Pertinent Findings swelling 09/29/2017 None edema Onset and Resolution ongoing 09/29/2017 None edema Frequency of Episodes daily 09/29/2017 None edema Frequency of Episodes unchanged 09/29/2017 None edema Location diffusely 09/29/2017 None shoulder pain Location on both shoulders 09/29/2017 None shoulder pain Quality aching 09/29/2017 None shoulder pain Quality constant 09/29/2017 None shoulder pain Quality throbbing 09/29/2017 None shoulder pain Onset and Resolution ongoing 09/29/2017 None shoulder pain Onset of Symptom months ago 09/29/2017 None shoulder pain Limitation on Activities moderately limits activities 09/29/2017 None shoulder pain Pertinent Findings limited range of motion 09/29/2017 None shoulder pain Pertinent Findings point tenderness 09/29/2017 None shoulder pain Pertinent Findings stiffness 09/29/2017 None shoulder pain Pertinent Findings swelling 09/29/2017 None shoulder pain Pertinent Findings loss of range of motion 09/29/2017 None shoulder pain Pertinent Findings loss of strength 09/29/2017 None rheumatoid arthritis Frequency of Episodes daily 09/15/2017 None rheumatoid arthritis Location on the left 09/15/2017 shoulder rheumatoid arthritis Location on the right 09/15/2017 shoulder rheumatoid arthritis Onset and Resolution ongoing 09/15/2017 None rheumatoid arthritis Quality chronic 09/15/2017 None rheumatoid arthritis Pertinent Findings stiffness 09/15/2017 None rheumatoid arthritis Pertinent Findings swelling 09/15/2017 None edema Onset and Resolution ongoing 09/15/2017 None edema Frequency of Episodes daily 09/15/2017 None edema Frequency of Episodes unchanged 09/15/2017 None edema Location diffusely 09/15/2017 None shoulder pain Location on both shoulders 09/15/2017 None shoulder pain Quality aching 09/15/2017 None shoulder pain Quality constant 09/15/2017 None shoulder pain Quality throbbing 09/15/2017 None shoulder pain Onset and Resolution ongoing 09/15/2017 None shoulder pain Onset of Symptom months ago 09/15/2017 None shoulder pain Limitation on Activities moderately limits activities 09/15/2017 None shoulder pain Pertinent Findings limited range of motion 09/15/2017 None shoulder pain Pertinent Findings point tenderness 09/15/2017 None shoulder pain Pertinent Findings stiffness 09/15/2017 None shoulder pain Pertinent Findings swelling 09/15/2017 None shoulder pain Pertinent Findings loss of range of motion 09/15/2017 None shoulder pain Pertinent Findings loss of strength 09/15/2017 None rheumatoid arthritis Frequency of Episodes daily 08/31/2017 None rheumatoid arthritis Location on the left 08/31/2017 shoulder rheumatoid arthritis Location on the right 08/31/2017 shoulder rheumatoid arthritis Onset and Resolution ongoing 08/31/2017 None rheumatoid arthritis Quality chronic 08/31/2017 None rheumatoid arthritis Pertinent Findings stiffness 08/31/2017 None rheumatoid arthritis Pertinent Findings swelling 08/31/2017 None edema Onset and Resolution ongoing 08/31/2017 None edema Frequency of Episodes daily 08/31/2017 None edema Frequency of Episodes unchanged 08/31/2017 None edema Location diffusely 08/31/2017 None shoulder pain Location on both shoulders 08/31/2017 None shoulder pain Quality aching 08/31/2017 None shoulder pain Quality constant 08/31/2017 None shoulder pain Quality throbbing 08/31/2017 None shoulder pain Onset and Resolution ongoing 08/31/2017 None shoulder pain Onset of Symptom months ago 08/31/2017 None shoulder pain Limitation on Activities moderately limits activities 08/31/2017 None shoulder pain Pertinent Findings limited range of motion 08/31/2017 None shoulder pain Pertinent Findings point tenderness 08/31/2017 None shoulder pain Pertinent Findings stiffness 08/31/2017 None shoulder pain Pertinent Findings swelling 08/31/2017 None shoulder pain Pertinent Findings loss of range of motion 08/31/2017 None shoulder pain Pertinent Findings loss of strength 08/31/2017 None rheumatoid arthritis Frequency of Episodes daily 08/21/2017 None rheumatoid arthritis Location on the left 08/21/2017 shoulder rheumatoid arthritis Location on the right 08/21/2017 shoulder rheumatoid arthritis Onset and Resolution ongoing 08/21/2017 None rheumatoid arthritis Quality chronic 08/21/2017 None rheumatoid arthritis Pertinent Findings stiffness 08/21/2017 None rheumatoid arthritis Pertinent Findings swelling 08/21/2017 None edema Onset and Resolution ongoing 08/21/2017 None edema Frequency of Episodes daily 08/21/2017 None edema Frequency of Episodes unchanged 08/21/2017 None edema Location diffusely 08/21/2017 None shoulder pain Location on both shoulders 08/21/2017 None shoulder pain Quality aching 08/21/2017 None shoulder pain Quality constant 08/21/2017 None shoulder pain Quality throbbing 08/21/2017 None shoulder pain Onset and Resolution ongoing 08/21/2017 None shoulder pain Onset of Symptom months ago 08/21/2017 None shoulder pain Limitation on Activities moderately limits activities 08/21/2017 None shoulder pain Pertinent Findings limited range of motion 08/21/2017 None shoulder pain Pertinent Findings point tenderness 08/21/2017 None shoulder pain Pertinent Findings stiffness 08/21/2017 None shoulder pain Pertinent Findings swelling 08/21/2017 None shoulder pain Pertinent Findings loss of range of motion 08/21/2017 None shoulder pain Pertinent Findings loss of strength 08/21/2017 None rheumatoid arthritis Frequency of Episodes daily 08/12/2017 None rheumatoid arthritis Location on the left 08/12/2017 shoulder rheumatoid arthritis Location on the right 08/12/2017 shoulder rheumatoid arthritis Onset and Resolution ongoing 08/12/2017 None rheumatoid arthritis Quality chronic 08/12/2017 None rheumatoid arthritis Pertinent Findings stiffness 08/12/2017 None rheumatoid arthritis Pertinent Findings swelling 08/12/2017 None edema Onset and Resolution ongoing 08/12/2017 None edema Frequency of Episodes daily 08/12/2017 None edema Frequency of Episodes unchanged 08/12/2017 None edema Location diffusely 08/12/2017 None shoulder pain Location on both shoulders 08/12/2017 None shoulder pain Quality aching 08/12/2017 None shoulder pain Quality constant 08/12/2017 None shoulder pain Quality throbbing 08/12/2017 None shoulder pain Onset and Resolution ongoing 08/12/2017 None shoulder pain Onset of Symptom months ago 08/12/2017 None shoulder pain Limitation on Activities moderately limits activities 08/12/2017 None shoulder pain Pertinent Findings limited range of motion 08/12/2017 None shoulder pain Pertinent Findings point tenderness 08/12/2017 None shoulder pain Pertinent Findings stiffness 08/12/2017 None shoulder pain Pertinent Findings swelling 08/12/2017 None shoulder pain Pertinent Findings loss of range of motion 08/12/2017 None shoulder pain Pertinent Findings loss of strength 08/12/2017 None rheumatoid arthritis Frequency of Episodes daily 08/05/2017 None rheumatoid arthritis Location on the left 08/05/2017 shoulder rheumatoid arthritis Location on the right 08/05/2017 shoulder rheumatoid arthritis Onset and Resolution ongoing 08/05/2017 None rheumatoid arthritis Quality chronic 08/05/2017 None rheumatoid arthritis Pertinent Findings stiffness 08/05/2017 None rheumatoid arthritis Pertinent Findings swelling 08/05/2017 None edema Onset and Resolution ongoing 08/05/2017 None edema Frequency of Episodes daily 08/05/2017 None edema Location diffusely 08/05/2017 None shoulder pain Location on both shoulders 08/05/2017 None shoulder pain Quality aching 08/05/2017 None shoulder pain Quality constant 08/05/2017 None shoulder pain Quality throbbing 08/05/2017 None shoulder pain Onset and Resolution ongoing 08/05/2017 None shoulder pain Onset of Symptom months ago 08/05/2017 None shoulder pain Limitation on Activities moderately limits activities 08/05/2017 None shoulder pain Pertinent Findings limited range of motion 08/05/2017 None shoulder pain Pertinent Findings point tenderness 08/05/2017 None shoulder pain Pertinent Findings stiffness 08/05/2017 None shoulder pain Pertinent Findings swelling 08/05/2017 None shoulder pain Pertinent Findings loss of range of motion 08/05/2017 None shoulder pain Pertinent Findings loss of strength 08/05/2017 None edema Frequency of Episodes unchanged 08/05/2017 None rheumatoid arthritis Frequency of Episodes daily 07/23/2017 None rheumatoid arthritis Location on the left 07/23/2017 shoulder rheumatoid arthritis Location on the right 07/23/2017 shoulder rheumatoid arthritis Onset and Resolution ongoing 07/23/2017 None rheumatoid arthritis Quality chronic 07/23/2017 None rheumatoid arthritis Pertinent Findings stiffness 07/23/2017 None rheumatoid arthritis Pertinent Findings swelling 07/23/2017 None edema Quality worsening 07/23/2017 None edema Onset and Resolution ongoing 07/23/2017 None edema Frequency of Episodes daily 07/23/2017 None edema Location diffusely 07/23/2017 None shoulder pain Location on both shoulders 07/23/2017 None shoulder pain Location on the right shoulder 07/23/2017 None shoulder pain Location on the left shoulder 07/23/2017 None shoulder pain Quality aching 07/23/2017 None shoulder pain Quality constant 07/23/2017 None shoulder pain Quality throbbing 07/23/2017 None shoulder pain Onset and Resolution ongoing 07/23/2017 None shoulder pain Onset of Symptom _ months ago 07/23/2017 None shoulder pain Limitation on Activities moderately limits activities 07/23/2017 None shoulder pain Pertinent Findings limited range of motion 07/23/2017 None shoulder pain Pertinent Findings point tenderness 07/23/2017 None shoulder pain Pertinent Findings stiffness 07/23/2017 None shoulder pain Pertinent Findings swelling 07/23/2017 R shoulder shoulder pain Pertinent Findings loss of range of motion 07/23/2017 None shoulder pain Pertinent Findings loss of strength 07/23/2017 None rheumatoid arthritis Frequency of Episodes daily 07/09/2017 None rheumatoid arthritis Location on the left 07/09/2017 shoulder rheumatoid arthritis Location on the right 07/09/2017 shoulder rheumatoid arthritis Onset and Resolution ongoing 07/09/2017 None rheumatoid arthritis Quality chronic 07/09/2017 None rheumatoid arthritis Pertinent Findings stiffness 07/09/2017 None rheumatoid arthritis Pertinent Findings swelling 07/09/2017 None edema Quality worsening 07/09/2017 None edema Onset and Resolution ongoing 07/09/2017 None edema Frequency of Episodes daily 07/09/2017 None edema Location diffusely 07/09/2017 None shoulder pain Location on both shoulders 07/09/2017 None shoulder pain Location on the right shoulder 07/09/2017 None shoulder pain Location on the left shoulder 07/09/2017 None shoulder pain Quality aching 07/09/2017 None shoulder pain Quality constant 07/09/2017 None shoulder pain Quality throbbing 07/09/2017 None shoulder pain Onset and Resolution ongoing 07/09/2017 None shoulder pain Onset of Symptom _ months ago 07/09/2017 None shoulder pain Limitation on Activities moderately limits activities 07/09/2017 None shoulder pain Pertinent Findings limited range of motion 07/09/2017 None shoulder pain Pertinent Findings point tenderness 07/09/2017 None shoulder pain Pertinent Findings stiffness 07/09/2017 None shoulder pain Pertinent Findings swelling 07/09/2017 R shoulder shoulder pain Pertinent Findings loss of range of motion 07/09/2017 None shoulder pain Pertinent Findings loss of strength 07/09/2017 None rheumatoid arthritis Frequency of Episodes daily 07/01/2017 None rheumatoid arthritis Location on the left 07/01/2017 shoulder rheumatoid arthritis Location on the right 07/01/2017 shoulder rheumatoid arthritis Onset and Resolution ongoing 07/01/2017 None rheumatoid arthritis Quality chronic 07/01/2017 None rheumatoid arthritis Pertinent Findings stiffness 07/01/2017 None rheumatoid arthritis Pertinent Findings swelling 07/01/2017 None edema Quality worsening 07/01/2017 None edema Onset and Resolution ongoing 07/01/2017 None edema Location diffusely 07/01/2017 None edema Frequency of Episodes daily 07/01/2017 None rheumatoid arthritis Quality chronic 06/24/2017 None rheumatoid arthritis Pertinent Findings stiffness 06/24/2017 None rheumatoid arthritis Pertinent Findings swelling 06/24/2017 None rheumatoid arthritis Onset and Resolution ongoing 06/24/2017 None rheumatoid arthritis Frequency of Episodes daily 06/24/2017 None rheumatoid arthritis Location on the right 06/24/2017 shoulder rheumatoid arthritis Location on the left 06/24/2017 shoulder Hospital Follow Up _ cardiac disease 06/17/2017 None edema Onset and Resolution sudden in onset 06/01/2017 None edema Onset of Symptom 1 weeks ago 06/01/2017 None edema Frequency of Episodes daily 06/01/2017 None edema Location diffusely 06/01/2017 None edema Quality constant 06/01/2017 None edema Quality worsening 06/01/2017 None edema Quality pitting 06/01/2017 None shoulder pain Location on both shoulders 04/02/2017 [...] Dr. Blancas in [place] and Neuro[place] in [place] in the past neck pain Significant Medical Conditions spinal stenosis 07/12/2014 has osteoarthritis Advance Directives No Advance Directive data Encounters Encounter Performer Location Codes Date ( EST. PATIENT, LEVEL III Diagnosis: Generalized edema[ICD10: R60.1] Diagnosis: Lymphedema, not elsewhere classified[ICD10: I89.0] Araceli Silva MD, [facility] CPT-4: 95943 01/14/2018 ([id number]) 19445 EST. PATIENT, LEVEL IV Diagnosis: Essential (primary) hypertension[ICD10: I10] Diagnosis: Generalized edema[ICD10: R60.1] Diagnosis: Chronic pain syndrome[ICD10: G89.4] Araceli Silva MD, [facility] CPT-4: 06047 12/24/2017 ([id number]) 01059 EST. PATIENT, LEVEL III Diagnosis: Lymphedema, not elsewhere classified[ICD10: I89.0] [facility] CPT-[facility]: 79481 11/30/2017 ([id number]) 53240 EST. PATIENT, LEVEL III Diagnosis: Generalized edema[ICD10: R60.1] [facility] CPT-4: 85575 11/27/2017 ([id number]) 08551 EST. PATIENT, LEVEL IV Diagnosis: Localized edema[ICD10: R60.0] Diagnosis: Essential (primary) hypertension[ICD10: I10] Diagnosis: Lymphedema, not elsewhere classified[ICD10: I89.0] Diagnosis: Rheumatoid arthritis without rheumatoid factor, right shoulder[ICD10 : M06.011] Diagnosis: Rheumatoid arthritis without rheumatoid factor, left shoulder[ICD10: M06.012] Diagnosis: Primary osteoarthritis, right shoulder[ICD10: M19.011] Diagnosis: Primary osteoarthritis, left shoulder[ICD10: M19.012] Diagnosis: Pain in right shoulder[ICD10: M25.511] Diagnosis: Pain in left shoulder[ICD10: M25.512] Araceli Silva MD, [facility] CPT-4: 74369 11/10/2017 ([id number]) 29543 EST. PATIENT, LEVEL IV Diagnosis: Localized edema[ICD10: R60.0] Diagnosis: Essential (primary) hypertension[ICD10: I10] Diagnosis: Rheumatoid arthritis without rheumatoid factor, right shoulder[ICD10 : M06.011] Diagnosis: Rheumatoid arthritis without rheumatoid factor, left shoulder[ICD10: M06.012] Diagnosis: Primary osteoarthritis, right shoulder[ICD10: M19.011] Diagnosis: Lymphedema, not elsewhere classified[ICD10: I89.0] Diagnosis: Primary osteoarthritis, left shoulder[ICD10: M19.012] Diagnosis: Pain in right shoulder[ICD10: M25.511] Diagnosis: Pain in left shoulder[ICD10: M25.512] [facility] CPT-4: 38385 10/29/2017 ([id number]) 39470 EST. PATIENT, LEVEL IV Diagnosis: Essential (primary) hypertension[ICD10: I10] Diagnosis: Rheumatoid arthritis without rheumatoid factor, right shoulder[ICD10 : M06.011] Diagnosis: Rheumatoid arthritis without rheumatoid factor, left shoulder[ICD10: M06.012] Diagnosis: Primary osteoarthritis, right shoulder[ICD10: M19.011] Diagnosis: Lymphedema, not elsewhere classified[ICD10: I89.0] Diagnosis: Primary osteoarthritis, left shoulder[ICD10: M19.012] Diagnosis: Pain in right shoulder[ICD10: M25.511] Diagnosis: Pain in left shoulder[ICD10: M25.512] Diagnosis: Localized edema[ICD10: R60.0] [facility] CPT- 4: 05325 10/20/[id number]) 12130 EST. PATIENT, LEVEL IV Diagnosis: Essential (primary) hypertension[ICD10: I10] Diagnosis: Lymphedema, not elsewhere classified[ICD10: I89.0] Diagnosis: Rheumatoid arthritis without rheumatoid factor, right shoulder[ICD10 : M06.011] Diagnosis: Rheumatoid arthritis without rheumatoid factor, left shoulder[ICD10: M06.012] Diagnosis: Primary osteoarthritis, right shoulder[ICD10: M19.011] Diagnosis: Primary osteoarthritis, left shoulder[ICD10: M19.012] Diagnosis: Pain in right shoulder[ICD10: M25.511] Diagnosis: Pain in left shoulder[ICD10: M25.512] Araceli Silva MD, [facility] CPT-4: 60814 09/29/2017 [id number]) [id number] EST. PATIENT, LEVEL IV Diagnosis: Primary osteoarthritis, left shoulder[ICD10: M19.012] Diagnosis: Pain in left shoulder[ICD10: M25.512] Diagnosis: Lymphedema, not elsewhere classified[ICD10: I89.0] Diagnosis: Localized edema[ICD10: R60.0] Diagnosis: Chronic atrial fibrillation[ICD10: I48.2] Araceli Silva MD, [facility] CPT-4: 14979 09/15/2017 [id number]) 53339 EST. PATIENT, LEVEL III Diagnosis: Primary osteoarthritis, left shoulder[ICD10: M19.012] Diagnosis: Pain in left shoulder[ICD10: M25.512] Diagnosis: Hemarthrosis, left shoulder[ICD10: M25.012] Araceli Silva MD, [facility] CPT-4: 25075 08/31/2017 [id number]) 71739 EST. PATIENT, LEVEL IV Diagnosis: Essential (primary) hypertension[ICD10: I10] Diagnosis: Chronic pain syndrome[ICD10: G89.4] Diagnosis: Primary osteoarthritis, right shoulder[ICD10: M19.011] Diagnosis: Primary osteoarthritis, left shoulder[ICD10: M19.012] Diagnosis: Hemarthrosis, left shoulder[ICD10: M25.012] Diagnosis: Hemarthrosis, right shoulder[ICD10: M25.011] Diagnosis: Pain in right shoulder[ICD10: M25.511] Diagnosis: Pain in left shoulder[ICD10: M25.512] Araceli Silva MD, [facility] CPT-4: 48772 08/05/2017 ([id number]) 56071 EST. PATIENT, LEVEL III Diagnosis: Localized edema[ICD10: R60.0] Araceli Silva MD [facility] CPT- 4: 50638 07/23/2017 ([id number]) 49037 EST. PATIENT, LEVEL III Diagnosis: Rheumatoid arthritis without rheumatoid factor, left shoulder[ICD10: M06.012] Diagnosis: Hemarthrosis, left shoulder[ICD10: M25.012] Araceli Silva MD, [facility] CPT-4: 41510 07/09/2017 ([id number]) 33011 EST. PATIENT, LEVEL III Diagnosis: Chronic pain syndrome[ICD10: G89.4] Diagnosis: Rheumatoid arthritis without rheumatoid factor, left shoulder[ICD10: M06.012] Diagnosis: Hemarthrosis, left shoulder[ICD10: M25.012] Diagnosis: Lymphedema, not elsewhere classified[ICD10: I89.0] Araceli Silva MD, [facility] CPT-4: 39472 07/01/2017 ([id number]) 19833 EST. PATIENT, LEVEL III Diagnosis: Chronic pain syndrome[ICD10: G89.4] Araceli Silva MD, [facility] CPT-4: 42728 06/24/2017 ([id number]) 39850 EST. PATIENT, LEVEL IV Diagnosis: Rheumatoid arthritis without rheumatoid factor, right shoulder[ICD10 : M06.011] Diagnosis: Rheumatoid arthritis without rheumatoid factor, left shoulder[ICD10: M06.012] Diagnosis: Pain in right shoulder[ICD10: M25.511] Diagnosis: Pain in left shoulder[ICD10: M25.512] Diagnosis: Chronic atrial fibrillation[ICD10: I48.2] Araceli Silva MD, [facility] CPT-4: 65736 06/17/2017 [id number] EST. PATIENT, LEVEL III Diagnosis: Pain in left shoulder[ICD10: M25.512] Diagnosis: Hemarthrosis, right shoulder[ICD10: M25.011] Diagnosis: Hemarthrosis, left shoulder[ICD10: M25.012] Maricel Silva MD, [facility] CPT-4: 20768 06/01/2017 ([id number]) 56798 EST. PATIENT, LEVEL II Diagnosis: Pain in right shoulder[ICD10: M25.511] Diagnosis: Hemarthrosis, right shoulder[ICD10: M25.011] Araceli Silva MD [facility] CPT-4: 79452 04/02/2017 ([id number]) 92265 EST. PATIENT, LEVEL IV Diagnosis: Chronic pain syndrome[ICD10: G89.4] Diagnosis: Rheumatoid arthritis without rheumatoid factor, right shoulder[ICD10 : M06.011] Diagnosis: Rheumatoid arthritis without rheumatoid factor, left shoulder[ICD10: M06.012] Araceli Silva MD, [facility] CPT-4: 20364 2017 ([id number]) 99754 EST. PATIENT, LEVEL IV Diagnosis: Primary osteoarthritis, right shoulder[ICD10: M19.011] Diagnosis: Chronic pain syndrome[ICD10: G89.4] Diagnosis: Essential (primary) hypertension[ICD10: I10] Diagnosis: Hypomagnesemia[ICD10: E83.42] Araceli Silva MD, [facility] CPT- 4: 54583 01/08/2017 ([id number]) 74112 EST. PATIENT, LEVEL IV Diagnosis: Encounter for immunization[ICD10: Z23] Diagnosis: Chronic pain syndrome[ICD10: G89.4] Diagnosis: Essential (primary) hypertension[ICD10: I10] Araceli Silva MD, [facility] CPT-4: 94289 12/08/2016 ([id number]) 69309 EST. PATIENT, LEVEL III Diagnosis: Urge incontinence[ICD10: N39.41] Diagnosis: Chronic pain syndrome[ICD10: G89.4] Diagnosis: Lymphedema, not elsewhere classified[ICD10: I89.0] Araceli Silva MD, [facility] CPT-4: 18586 11/17/2016 [id number] EST. 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 PATIENT, LEVEL IV Diagnosis: Essential (primary) hypertension[ICD10: I10] Diagnosis: Other chronic pain[ICD10: G89.29] Diagnosis: Localized edema[ICD10: R60.0] Diagnosis: Urge incontinence[ICD10: N39.41] Araceli Silva MD, [facility] CPT-4: 07894 11/05/2016 ([id number]) 87736 EST. 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 PATIENT, LEVEL III Diagnosis: Hemarthrosis, right shoulder[ICD10: M25.011] Diagnosis: Pain in right shoulder[ICD10: M25.511] Ila Silva MD, [facility] CPT-4: 85821 10/02/2016 14217 EST. PATIENT, LEVEL II Diagnosis: Low back pain[ICD10: M54.5] Diagnosis: Sacroiliitis, not elsewhere classified[ICD10: M46.1] Ila Silva MD, [facility] CPT-4: 25421 09/12/2016 ([id number]) 07284 EST. PATIENT, LEVEL III Diagnosis: Hemarthrosis, right shoulder[ICD10: M25.011] Diagnosis: Other chronic pain[ICD10: G89.29] Araceli Silva MD, [facility] CPT-4: 86663 09/08/2016 ([id number]) 92078 EST. PATIENT, LEVEL IV Diagnosis: Other iron deficiency anemias[ICD10: D50.8] Diagnosis: Vitamin D deficiency, unspecified[ICD10: E55.9] Diagnosis: Hypomagnesemia[ICD10: E83.42] Araceli Silva MD [facility] CPT- 4: 30155 08/26/2016 ([id number]) 69642 EST. PATIENT, LEVEL III Diagnosis: Localized edema[ICD10: R60.0] Araceli Silva MD [facility] CPT- 4: 64692 08/18/2016 ([id number]) 12988 EST. 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 PATIENT, LEVEL IV Diagnosis: Pain in left shoulder[ICD10: M25.512] Diagnosis: Nocturia[ICD10: R35.1] Maricel Silva MD, [facility] CPT-4: 23633 07/14/2016 [id number] EST. PATIENT, LEVEL III Diagnosis: Pain in left shoulder[ICD10: M25.512] Maricel Silva MD [facility] CPT-4: 42164 07/04/2016 ([id number]) 25339 EST. 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 PATIENT, LEVEL II Diagnosis: Insect bite (nonvenomous) of right upper arm, initial encounter[ICD10 : S40.861A] Ila Silva MD, [facility] CPT-4: 19054 11/01/2015 ([id number]) 31945 EST. 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 PATIENT, LEVEL III Diagnosis: Contusion of left upper arm, subsequent encounter[ICD10: S40.022D] Araceli Silva MD, [facility] CPT-4: 91336 2015 47682 EST. PATIENT, LEVEL III Diagnosis: Cellulitis of left upper limb[ICD10: L03.114] Maricel Silva MD, [facility] CPT-4: 54832 07/18/2015 ([id number]) 16723 EST. 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 PATIENT, LEVEL IV Diagnosis: Essential (primary) hypertension[ICD10: I10] Diagnosis: Vitamin D deficiency, unspecified[ICD10: E55.9] Diagnosis: Mixed hyperlipidemia[ICD10: E78.2] Diagnosis: Age-related osteoporosis with current pathological fracture, unspecified site, sequela[ICD10: M80.00XS] Araceli Silva MD, [facility] CPT- 4: 32954 02/08/2015 ([id number]) 58161 EST. PATIENT, LEVEL IV Diagnosis: Essential (primary) hypertension[ICD10: I10] Diagnosis: Localized edema[ICD10: R60.0] Diagnosis: Primary osteoarthritis, unspecified site[ICD10: M19.91] Araceli Silva MD, [facility] CPT-4: 13364 12/11/2014 ([id number]) 17180 EST. PATIENT, LEVEL III Diagnosis: EDEMA[ICD9: 782.3] Diagnosis: ESSENTIAL HYPERTENSION[ICD9: 401.9] Araceli Silva MD, [facility] CPT-4: 34179 11/09/2014 ([id number]) 96224 EST. PATIENT, LEVEL III Diagnosis: Leg pain[ICD9: 729.5] Diagnosis: Ulcer of toe[ICD9: 707.15] Araceli Silva MD, [facility] CPT- 4: 55218 10/23/2014 ([id number]) 96129 EST. PATIENT, LEVEL III Diagnosis: Ulcer of toe[ICD9: 707.15] Araceli Silva MD, [facility] CPT- 4: 22521 10/16/2014 30634 EST. PATIENT, LEVEL II Diagnosis: Ulcer of toe[ICD9: 707.15] Ila Silva MD, [facility] CPT-4: 73935 10/09/2014 ([id number]) 65679 EST. PATIENT, LEVEL III Diagnosis: EDEMA[ICD9: 782.3] Araceli Silva MD, [facility] CPT-4: 31193 09/14/2014 ([id number]) 91979 EST. PATIENT, LEVEL IV Diagnosis: EDEMA[ICD9: 782.3] Diagnosis: ESSENTIAL HYPERTENSION[ICD9: 401.9] Araceli Silva MD, [facility] CPT-4: 93409 08/11/2014 ([id number]) OFFICE VISIT, NEW - LEVEL 4 Diagnosis: HYPERLIPIDEMIA[ICD9: 272.4] Diagnosis: VITAMIN D DEFICIENCY[ICD9: 268.9] Diagnosis: Osteoporosis[ICD9: 733.00] Diagnosis: Esophageal reflux[ICD9: 530.81] Diagnosis: Chronic pain[ICD9: 338.29] [facility] CPT- 4: 93678 07/12/2014 Plan of Care Planned Activity Notes Codes Status Date Visit Plan: Edema/Lymphedema - prn metalozone rx sent to pharmacy. Keep legs elevated and wrapped. Chronic Pain Syndrome - pt has chronic pain - has been maintained on current medications, has not sought out other medications, only uses PRN pain medications as directed, and understands the consequences of over-medication. 01/14/2018 Appointment: Araceli Silva WPtel: [phone] [id number] (15 min) Moderate 01/14/2018 Patient Education: Patient Medication Summary Completed 01/14/2018 Visit Plan: Hypertension - well controlled - continue with current medications, continue with no added salt diet. Pt has been encouraged to exercise daily. The pt has been advised to call the office if there are any acute concerns about change in blood pressure readings at home. Lymphedema - Will have her re-initiate DEANGELO bandages tonight and give IV lasix tomorrow x 1 dose of 80mg and potassium 20meq iv x 1. chronic pain - monitor symptoms - continue with fentanyl and oxycodone scheduled. 12/24/2017 Appointment: Araceli Silva WPtel: [facility] (30 min) Complex 12/24/2017 Patient Education: Patient Medication Summary Completed 12/24/2017 Visit Plan: Edema-worsening- pt has persistent worsening of her edema - her son-in-law is with her today- we have discussed admission to the hospital. I have recommended admission to inpatient rehab - the plan is for admission to inpatient rehab on of this week. I will order IV lasix drip and closely monitor her intake and output. 11/30/2017 Appointment: Araceli Silva WPtel: [id number] (15 min) Moderate 11/30/2017 Patient Education: Patient Medication Summary Completed 11/30/2017 Visit Plan: Edema-worsening- discussed with Dr Silva- continue with lymphedema wraps -rx for bumex provided and instructed on use- follow up with Dr Silva on Thursday as scheduled. Patient verbalized understanding of plan. 11/27/2017 Visit Plan: Edema-worsening- discussed with Dr Silva- continue with lymphedema wraps -rx for bumex provided and instructed on use- follow up with Dr Silva on Thursday as scheduled. Patient verbalized understanding of plan. 11/27/2017 Appointment: (15 min) Moderate 11/27/2017 Patient Education: Patient Medication Summary Completed 11/27/2017 Visit Plan: Lymphedema of upper and lower extremities with hx of Afib with heart failure - Edema of lower extremities - keep elevated - monitor symptoms - advised pt to use her zero-gravity setting on her chair, use compression wraps Home Health for occupational therapy and physical therapy to aide improved function physically and occ therapy for lymphedema management. Rheumatoid arthritis and OA of multiple joints with derrangement of shoulders, hands, with difficulty of movement, cannot push herself out of a chair due to her hand and shoulder pain. - monitor symptoms - continue with supportive care at this time. I have recommended that they look into a power wheel chair if her insurance will cover it as this would be best for her with ease of movement in the wheelchair as well as aiding improvement of her lymphedema. Chronic Pain Syndrome - pt has chronic pain - has been maintained on current medications, has not sought out other medications, only uses PRN pain medications as directed , and understands the consequences of over-medication. 11/10/2017 Appointment: Araceli Silva WPtel: [address] [place], [place] [id number] (15 min) Moderate 11/10/2017 Patient Education: Patient Medication Summary Completed 11/10/2017 Visit Plan: Upper and lower extremity edema - continue with higher protein diet, diuretic therapy, compression wraps. Hypertension - well controlled - continue with current medications, continue with no added salt diet. Pt has been encouraged to exercise daily. The pt has been advised to call the office if there are any acute concerns about change in blood pressure readings at home. Rheumatoid arthritis - progressive symptoms with increased joint discomfort. I have recommended that the patient have a scooter as her mobility has been worsening. She cannot ambulate without a walker and cannot ambulate more than 10 feet without stopping to rest. She has the cognitive and physical capability to maneuver a walker. She cannot use her arms to maneuver a manual wheelchair as she has complete degeneration of her shoulders and severe RA of hands/fingers. We will contact [facility] in [place] for paperwork regarding the scooter. 10/29/2017 Appointment: [facility] Silva [facility]Ptel[phone] [facility] (15 min) Moderate 10/29/2017 Patient Education: Patient Medication Summary Completed 10/29/2017 Patient Education: Patient Medication Summary Completed 10/21/2017 Visit Plan: Lymphedema of upper and lower extremities with hx of Afib with heart failure - Edema of lower extremities - keep elevated - monitor symptoms - advised pt to use her zero-gravity setting Anemia - hx of iron deficiency - we are going to check the iron levels, protein levels, renal and liver function as well as a cbc today. Once we get the results back, we will let Ese know about whether or not Fernando needs to have IV iron. We have the one shot treatment for iron back at the hospital - since Fernando cannot tolerate the oral iron - we may need to consider scheduling her for iron labs every 3-4 months and if her iron levels and CBC are low - she may need to get IV iron 3 to 4 times a year to replenish her iron stores as she is not getting enough in her daily intake and does not seem to be able to store the iron as one would usually when having a regular diet. We will see Fernando back in the office in about 3 weeks. Rheumatoid arthritis - monitor symptoms - continue with supportive care at this time. 10/20/2017 Appointment: [facility]eli Silva [facility]Ptel[facility] [phone] [facility] (30 min) Complex 10/20/2017 Patient Education: Patient Medication Summary Completed 10/20/2017 Visit Plan: Rheumatoid arthritis of shoulders, Severe edema of upper and lower extremities - pt has progressive deblity - she cannot lift her lower extremities with her arms to get them elevated onto her bed and she cannot lift her legs under her own power as her leg and back muscles are too weak to aide in lifting her legs from the floor to the bed. Pt has used wedge pillows in the past - did not work - has tried regular pillows in the past as well to wedge herself up in bed, which also did not work due to not enough elevation and pt's inability to get her legs lifted up off of the ground to the bed. She cannot lift her legs into the bed without assistance, she also cannot place her legs on pillows without assistance. no open pressure ulcers on buttock - however she has redness to her coccyx. weeping pressure ulcer on left leg compression placed on leg. Lymphedema of upper and lower extremities with hx of Afib with heart failure - I have recommended pt to have a hospital bed with air mattress to prevent further development of pressure ulcers and to also prevent further edema as she needs her legs elevated while in bed to prevent further lymphedema. Pt did not need joints drained today. 09/29/2017 Appointment: Araceli Silva WPtel: [id number] (15 min) Moderate 09/29/2017 Patient Education: Patient Medication Summary Completed 09/29/2017 Visit Plan: Lymphedema of upper and lower extremities with hx of Afib with heart failure - I have recommended pt to have a hospital bed with air mattress Pt did not need joints drained today. 09/15/2017 Patient Education: Patient Medication Summary Completed 09/15/2017 Visit Plan: Hemarthrosis shoulders - 70mL from left shoulder with 1ml kenalog injected into left shoulders - Left shoulder pain and swelling, swelling into arms and left breast -pt to continue with use of compression sleeves. Chronic Pain Syndrome - pt has chronic pain - has been maintained on current medications, has not sought out other medications, only uses PRN pain medications as directed, and understands the consequences of over- medication. 08/31/2017 Patient Education: Patient Medication Summary Completed 08/31/2017 Visit Plan: Hemarthrosis shoulders - 120mL from left shoulder and no fluid from right shoulder with 1ml kenalog injected into right and left shoulders - Left and right shoulder pain and swelling, swelling into arms and left breast -pt to continue with use of compression sleeves. 08/21/2017 Appointment: (30 min) Complex 08/21/2017 Patient Education: Patient Medication Summary Completed 08/21/2017 Appointment: Araceli Silva WPtel: [facility] [place] (15 min) Moderate 08/20/2017 Visit Plan: Hemarthrosis shoulders - 250mL from left shoulder and 100mL from right shoulder with 1ml kenalog injected into right and left shoulders - Left and right shoulder pain and swelling, swelling into arms and left breast -pt to continue with use of compression sleeves. [id number] sep 2018 bristol 2ml kenalog 08/12/2017 Appointment: Araceli Silva WPtel: [phone] [facility] (15 min) Moderate 08/12/2017 Patient Education: Patient Medication Summary Completed 08/12/2017 Visit Plan: Hypertension - well controlled - continue with current medications, continue with no added salt diet. Pt has been encouraged to exercise daily. The pt has been advised to call the office if there are any acute concerns about change in blood pressure readings at home. Chronic Pain Syndrome - pt has chronic pain - has been maintained on current medications, has not sought out other medications, only uses PRN pain medications as directed , and understands the consequences of over-medication. Hemarthrosis shoulders - 250mL from left shoulder and scant from right shoulder with 1ml kenalog injected into right and left shoulders - Left and right shoulder pain and swelling, swelling into arms and left breast -pt to continue with use of compression sleeves. Edema - pt has been advised to elevate legs to prevent dependent edema, compression has been recommended to help to naturally decrease peripheral edema. Diuretic use has been discussed and pt has been instructed in appropriate use of such medication as necessary to further attempt to reduce peripheral edema. 08/05/2017 Appointment: Araceli Silva WPtel: [phone] [facility] [place] (15 min) Moderate 08/05/2017 Patient Education: Patient Medication Summary Completed 08/05/2017 Visit Plan: Hemarthrosis shoulders - 175mL from left shoulder - Left and right shoulder pain and swelling, swelling into arms and left breast -pt to keep appt with lymphedema clinic for compression sleeves. Edema - pt has been advised to elevate legs to prevent dependent edema, compression has been recommended to help to naturally decrease peripheral edema. Diuretic use has been discussed and pt has been instructed in appropriate use of such medication as necessary to further attempt to reduce peripheral edema. 07/23/2017 Appointment: Arcaeli Silva WPtel: [phone] [facility] [place] (15 min) Moderate 07/23/2017 Patient Education: Patient Medication Summary Completed 07/23/2017 Visit Plan: Hemarthrosis shoulders - 100mL from left shoulder - Left and right shoulder pain and swelling, swelling into arms and left breast -pt to keep appt with lymphedema clinic for compression sleeves. Kenalog 40mg given to pt in shoulder joint. Edema - pt has been advised to elevate legs to prevent dependent edema, compression has been recommended to help to naturally decrease peripheral edema. Diuretic use has been discussed and pt has been instructed in appropriate use of such medication as necessary to further attempt to reduce peripheral edema. Chronic pain syndrome - stable on fentanyl - monitor symptoms. 07/09/2017 Appointment: Araceli Silva WPtel: [phone] [facility] [place] (15 min) Moderate 07/09/2017 Patient Education: Patient Medication Summary Completed 07/09/2017 Referral: [facility]IA [facility] WPtel: Referral Initiated 07/08/2017 Visit Plan: Hemarthrosis shoulders - 200mL from left shoulder - Left and right shoulder pain and swelling, swelling into arms and left breast -pt to keep appt with lymphedema clinic for compression sleeves. Edema - pt has been advised to elevate legs to prevent dependent edema, compression has been recommended to help to naturally decrease peripheral edema. Diuretic use has been discussed and pt has been instructed in appropriate use of such medication as necessary to further attempt to reduce peripheral edema. Chronic pain syndrome - stable on fentanyl - monitor symptoms. 07/01/2017 Appointment: Araceli Silva WPtel: [phone] [facility] [place] (15 min) Moderate 07/01/2017 Patient Education: Patient Medication Summary Completed 07/01/2017 Visit Plan: Chronic Pain Syndrome - pt has chronic pain - has been maintained on current medications, has not sought out other medications , only uses PRN pain medications as directed, and understands the consequences of over-medication. 06/24/2017 Appointment: Araceli Silva WPtel: [phone] [facility] [place] (15 min) Moderate 06/24/2017 Patient Education: Patient Medication Summary Completed 06/24/2017 Visit Plan: Atrial fibrillation - pt's rate is controlled, she cannot be on blood thinner medications due to her recurrent anemia and hemarthrosis - pt to continue with current management. Hemarthrosis bilateral shoulders - 180mL from left shoulder and 55mL right shoulder - Left and right shoulder pain and swelling, swelling into arms and left breast -pt to keep appt with lymphedema clinic for compression sleeves. Anemia - check labs today- discussed with pt - does not need to have blood transfusion at this time. Edema - pt has been advised to elevate legs to prevent dependent edema, compression has been recommended to help to naturally decrease peripheral edema. Diuretic use has been discussed and pt has been instructed in appropriate use of such medication as necessary to further attempt to reduce peripheral edema. 06/17/2017 Appointment: Araceli Silva WPtel: [phone] [facility] [place] (30 min) Complex 06/17/2017 Patient Education: Patient Medication Summary Completed 06/17/2017 Appointment: Araceli Silva WPtel: [phone] [facility] [place] (15 min) Moderate 06/08/2017 Care Plan: Referral Order SNOMED-CT : [id number] Pending 06/02/2017 Visit Plan: Left and right shoulder pain and swelling, swelling into arms and left breast - Dr. Silva in to evaluate pt - will refer pt to lymphedema clinic for compression sleeves. Pt is to notify clinic if symptoms do not improve, or with any changes, questions, or concerns. Edema - pt has been advised to elevate legs to prevent dependent edema, compression has been recommended to help to naturally decrease peripheral edema. Diuretic use has been discussed and pt has been instructed in appropriate use of such medication as necessary to further attempt to reduce peripheral edema. 06/01/2017 Appointment: [id number] [place] (30 min) Complex 06/01/2017 Patient Education: Patient Medication Summary Completed 06/01/2017 Visit Plan: Hemarthrosis - pt was prepped and draped in sterile fashion - sterile 20 gauge needle used to access joint and drain via arthrocentesis - over 60mL of blood from joint. Dressed with pressure dressing and bandaid - advised to call if not improving or repeat drainage needed. Kenalog injected into joint after completion of removal of blood from shoulder 04/02/2017 Appointment: Araceli Silva WPtel: [phone] [facility] [place] (15 min) Moderate 04/02/2017 Patient Education: Patient Medication Summary Completed 04/02/2017 Visit Plan: Chronic Pain Syndrome - pt has chronic pain - has been maintained on current medications, has not sought out other medications , only uses PRN pain medications as directed, and understands the consequences of over-medication. Pt is not well controlled and I have recommended that her dose of fentanyl be increased to 125mcg daily RA - - uncontrolled symptoms - recommended patient to have a taper of steroids over the next month down to her usual dose of 5mg daily. Pt advised to take her carafate with the prednisone to help decrease stomach upset. 03/12/2017 Appointment: Araceli Silva WPtel: [phone] [facility] [place] (15 min) Moderate 03/12/2017 Patient Education: Patient Medication Summary Completed 03/12/2017 Visit Plan: Hemarthrosis - pt was prepped and draped in sterile fashion - sterile 20 gauge needle used to access joint and drain via arthrocentesis - over 55mL of blood from joint. Dressed with pressure dressing and bandaid - advised to call if not improving or repeat drainage needed. 02/06/2017 Appointment: Injection 02/06/2017 Patient Education: Patient Medication Summary Completed 02/06/2017 Visit Plan: Hypertension - well controlled - continue with current medications, continue with no added salt diet. Pt has been encouraged to exercise daily. The pt has been advised to call the office if there are any acute concerns about change in blood pressure readings at home. Chronic Pain Syndrome - pt has chronic pain - has been maintained on current medications, has not sought out other medications, only uses PRN pain medications as directed , and understands the consequences of over-medication. Rash - on face, check ROMIE. 01/08/2017 Appointment: [facility]el[phone] (15 min) Moderate 01/08/2017 Patient Education: Patient Medication Summary Completed 01/08/2017 Patient Education: Hypertension Completed 01/08/2017 Visit Plan: Chronic Pain Syndrome - pt has chronic pain - has been maintained on current medications, has not sought out other medications , only uses PRN pain medications as directed, and understands the consequences of over-medication. Continue with Fentanyl and continue with oxycodone at current dose. Hypertension - well controlled - continue with current medications , continue with no added salt diet. Pt has been encouraged to exercise daily. The pt has been advised to call the office if there are any acute concerns about change in blood pressure readings at home. Inflammatory Arthritis - continue with Remicaide. 12/08/2016 Appointment: Araceli Silva WPtel: [phone] [id number] (15 min) Moderate 12/08/2016 Patient Education: Patient Medication Summary Completed 12/08/2016 Patient Education: Hypertension Completed 12/08/2016 Visit Plan: Urge Incontinence - continue with myrbetric 50mg dose given to patient. Lymphedema - order juan daniel to do a lymphedema fitting on her right arm - dx lymphedema Chronic pain - rx for fentanyl 75mcg patches and 25mcg patches - rx for oxycontin 30mg 1/2 pill q6 hours #120. - hold oxycontin 10mg dose for now 11/17/2016 Appointment: Araceli Silva WPtel: [phone] [facility] (15 min) Moderate 11/17/2016 Patient Education: Patient Medication Summary Completed 11/17/2016 Visit Plan: Chronic neck pain, arthritis, right arm pain - pt has symptoms of uncontrolled pain despite current pain medications, discussed with Dr. Silva - will increase fentanyl patch dose in attempt to better control pt's pain and improve quality of life, and to allow pt to perform activities of daily living. Pt is to notify clinic if her symptoms do not improve, if they worsen, or with any changes, questions, or concerns. Chronic Pain Syndrome - pt has chronic pain - has been maintained on current medications, has not sought out other medications, only uses PRN pain medications as directed, and understands the consequences of over-medication. 11/10/2016 Appointment: Maricel Gee WPtel: [address] [place], [place] [id number] (30 min) Complex 11/10/2016 Patient Education: Patient Medication Summary Completed 11/10/2016 Visit Plan: Hypertension - well controlled - continue with current medications, continue with no added salt diet. Pt has been encouraged to exercise daily. The pt has been advised to call the office if there are any acute concerns about change in blood pressure readings at home. Urge incontinence - vesicare 10mg daily - call if not improving. Edema - compression socks - keep legs elevated. RA - pt seeing Dr. Ambrocio's associate. Continue with steroids, immunosuppression. 11/05/2016 Appointment: Araceli Silva WPtel: [facility]2 [facility] (15 min) Moderate 11/05/2016 Patient Education: Patient Medication Summary Completed 11/05/2016 Patient Education: Hypertension Completed 11/05/2016 Referral: External, Ordering Provider Referral Completed 10/23/2016 Referral: Dr Virgen Referral Initiated 10/16/2016 Visit Plan: OA with acute swelling in shoulders bilaterally right shoulder with increased pain compared to left. I have recommended a referral to Dr. Ambrocio Pt is not a good candidate for oral antiinflammatories or steroids due to GI bleeding. Hearing loss - referral to audiology - safia's office Chronic pain - increase fentanyl to 75mcg change q72 hours. Monitor symptoms of pain control on the topical medication. Anemia - check cbc today. 10/07/2016 Appointment: Araceli Silva WPtel: [facility] (15 min) Moderate 10/07/2016 Patient Education: Patient Medication Summary Completed 10/07/2016 Care Plan: Referral Order SNOMED-CT : [id number] Pending 10/07/2016 Care Plan: Referral Order SNOMED-CT : [id number] Pending 10/07/2016 Visit Plan: Hemarthrosis -right shoulder-only able to drain 5ml of bloody drainage-unable to give oral steroids due to recent GI bleed -will give kenalog injection today in the office-discussed getting OSMO patch 10/02/2016 Appointment: Ila Kennedy WPtel: [phone] [place] (30 min) Complex 10/02/2016 Patient Education: Patient Medication Summary Completed 10/02/2016 Appointment: Araceli Silva WPtel: [facility]6 [facility] (15 min) Moderate 09/23/2016 Appointment: Araceli Silva WPtel: [facility]4 [facility] (15 min) Moderate 09/17/2016 Visit Plan: Sacroiliitis - back exercises discussed with the patient, pt to continue with anti-inflammatories. Pt is to call if the symptoms do not improve or if they worsen. Kenalog injection today in the office. 09/12/2016 Appointment: Ila Kennedy WPtel: [phone] (15 min) Moderate 09/12/2016 Patient Education: Patient Medication Summary Completed 09/12/2016 Visit Plan: Hemarthrosis - drain right shoulder. Injection of kenalog 1mL - 40mg - Reactivity - lot #[id number] , expires oct 2017 Chronic Pain Syndrome - pt has chronic pain - has been maintained on current medications, has not sought out other medications, only uses PRN pain medications as directed, and understands the consequences of over-medication. 09/08/2016 Visit Plan: Hemarthrosis - drain right shoulder. Chronic Pain Syndrome - pt has chronic pain - has been maintained on current medications , has not sought out other medications, only uses PRN pain medications as directed, and understands the consequences of over-medication. 09/08/2016 Appointment: Araceli Silva WPtel: [facility] [place] (15 min) Moderate 09/08/2016 Patient Education: Patient Medication Summary Completed 09/08/2016 Visit Plan: Fatigue and Anemia - recommended stat labs - CBC showed Hgb of 8.3 - iron panel added to blood in labs - will wait on those reports - but will have pt get a blood transfusion tomorrow. Will possibly get pt in for iron transfusion. Edema - increase lasix x 10 days to bid, then use prn swelling. Check magnesium level 08/26/2016 Appointment: Araceli Silva WPtel: [facility]5 [facility] (15 min) Moderate 08/26/2016 Patient Education: Patient Medication Summary Completed 08/26/2016 Patient Education: Patient Medication Summary Completed 08/26/2016 Visit Plan: Edema - pt has been advised to elevate legs to prevent dependent edema, compression has been recommended to help to naturally decrease peripheral edema. Diuretic use has been discussed and pt has been instructed in appropriate use of such medication as necessary to further attempt to reduce peripheral edema. take lasix daily x 10 days then you can just take it as needed for swelling in the legs. when taking lasix, take a potassium as well. take the vesicare at night - it should help to decrease the bladder spasms 08/18/2016 Patient Education: Patient Medication Summary Completed 08/18/2016 Appointment: Araceli Silva WPtel: [facility]7 [facility] (15 min) Moderate 08/13/2016 Appointment: Araceli Silva WPtel: [address] [place], [place] [phone] (15 min) Moderate 08/06/2016 Visit Plan: Chronic Pain Syndrome - pt has chronic pain - has been maintained on current medications, has not sought out other medications , only uses PRN pain medications as directed, and understands the consequences of over-medication. Neck pain with torticollis - pt is referred to Alton Eisenberg for dry needling technique. Nocturia - pt needs compression socks on during the day and to call if symptoms are not improved with less leg edema at night. weakness - pt has daytime awakening weakness - suspect this is due to poor food intake during the day and evening - pt encouraged to have 6 small meals during the daytime. 07/30/2016 Appointment: Araceli Silva WPtel: [facility]4 [facility] (15 min) Moderate 07/30/2016 Patient Education: Patient Medication Summary Completed 07/30/2016 Visit Plan: Left shoulder pain - improving - pt is to notify clinic if symptoms do not improve, if they worsen, or with any questions or concerns. Nocturia - will give samples, pt is to notify clinic if symptoms do not improve. 07/14/2016 Appointment: Maricel Gee WPtel: [phone] [facility] (30 min) Complex 07/14/2016 Patient Education: Patient Medication Summary Completed 07/14/2016 Visit Plan: Left shoulder pain - ecchymosis of the shoulder - Pt denies trauma - will check x-ray - will treat as indicated, pt is to notify clinic if symptoms do not improve, if they worsen, or with any questions or concerns. Pt is to go to the ER if shoulder becomes, red or warm to the touch, or with any dyspnea. 07/04/2016 Appointment: Maricel Gee WPtel: 1015 [facility] (30 min) Complex 07/04/2016 Patient Education: Patient Medication Summary Completed 07/04/2016 Visit Plan: Cervical Spine pain - continue with supportive care - monitor symptoms. Chronic Pain Syndrome - pt has chronic pain - has been maintained on current medications, has not sought out other medications, only uses PRN pain medications as directed, and understands the consequences of over- medication. 06/26/2016 Appointment: Araceli Silva WPtel: [phone] [facility] (15 min) Moderate 06/26/2016 Patient Education: Patient Medication Summary Completed 06/26/2016 Patient Education: Hypertension Completed 06/26/2016 Visit Plan: Hypertension - well controlled - continue with current medications, continue with no added salt diet. Pt has been encouraged to exercise daily. The pt has been advised to call the office if there are any acute concerns about change in blood pressure readings at home. Chronic Pain Syndrome - pt has chronic pain - has been maintained on current medications, has not sought out other medications, only uses PRN pain medications as directed , and understands the consequences of over-medication. 05/28/2016 Appointment: Araceli Silva WPtel: [facility]6 [facility] [place] (15 min) Moderate 05/28/2016 Patient Education: Patient Medication Summary Completed 05/28/2016 Patient Education: Hypertension Completed 05/28/2016 Appointment: BarkerAraceli henson WPtel: [phone] [facility] [place] (15 min) Moderate 05/12/2016 Appointment: Ricardo Araceli WPtel: [facility]5 [facility] [place] (15 min) Moderate 04/15/2016 Appointment: BarkerCharlie hensony WPtel: [phone] [facility] (30 min) Complex 03/25/2016 Visit Plan: Hypertension - well controlled - continue with current medications, continue with no added salt diet. Pt has been encouraged to exercise daily. The pt has been advised to call the office if there are any acute concerns about change in blood pressure readings at home. Chronic Pain Syndrome - pt has chronic pain - has been maintained on current medications, has not sought out other medications, only uses PRN pain medications as directed , and understands the consequences of over-medication. stop the simvastatin - due to muscle aches - it will take about 2 weeks for the medication to get out of your body decrease the premarin to every other day x 1 week then twice a week x 1 week then stop the premarin. 03/18/2016 Appointment: Araceli Silva WPtel: [facility]5 [facility] (30 min) Complex 03/18/2016 Patient Education: Patient Medication Summary Completed 03/18/2016 Appointment: Araceli Silva WPtel: [facility]5 [facility] (15 min) Moderate 02/19/2016 Visit Plan: Hypertension - well controlled - continue with current medications, continue with no added salt diet. Pt has been encouraged to exercise daily. The pt has been advised to call the office if there are any acute concerns about change in blood pressure readings at home. Chronic Pain Syndrome - pt has chronic pain - has been maintained on current medications, has not sought out other medications, only uses PRN pain medications as directed , and understands the consequences of over-medication. 01/29/2016 Appointment: Araceli Silva WPtel: [phone] [facility] [place] (15 min) Moderate 01/29/2016 Patient Education: Patient Medication Summary Completed 01/29/2016 Visit Plan: Discussed MRI of the neck - pt is interested in doing this - however, not prior to changing her medication first to see if this helps her pain 01/01/2016 Appointment: BarkerCharliey WPtel: [phone] [facility] [place] (15 min) Moderate 01/01/2016 Patient Education: Patient Medication Summary Completed 01/01/2016 Patient Education: Hypertension Completed 01/01/2016 Appointment: RicardoAraceli WPtel: [phone] [facility] [place] (15 min) Moderate 12/03/2015 Visit Plan: Chronic Pain Syndrome - pt has chronic pain - has been maintained on current medications, has not sought out other medications , only uses PRN pain medications as directed, and understands the consequences of over-medication. Neck pain and Muscle spasms - recommended muscle rub. Hyperlipidemia - pt has been counseled about appropriate diet, exercise, and need for low fat food choices. I have discussed the need for the patient to take medications as prescribed. If the patient has negative side effects from the medication, they are to CALL the office and not abruptly discontinue the medication without discussion with a practitioner in the office. We will check labs in 3-6 months for follow up on the patient's chronic medical problem and to assure normal liver response to medications. 11/19/2015 Patient Education: Patient Medication Summary Completed 11/19/2015 Patient Education: Hypertension Completed 11/19/2015 Care Plan: Sed Rate Pending 11/19/2015 Visit Plan: Tick Bite - pt given script for treatment of infected tick bite, call for symptoms of worsening infection or nonhealing. 11/01/2015 Visit Plan: Tick Bite - pt given script for treatment of infected tick bite, call for symptoms of worsening infection or nonhealing. 11/01/2015 Appointment: Ila Kennedy WPtel: [phone] [phone] [place] (15 min) Moderate 11/01/2015 Patient Education: Patient Medication Summary Completed 11/01/2015 Visit Plan: Chronic Pain Syndrome - pt has chronic pain - has been maintained on current medications, has not sought out other medications , only uses PRN pain medications as directed, and understands the consequences of over-medication. Muscle spasms - recommended muscle rub. 09/04/2015 Appointment: Araceli Silva WPtel: [facility]1 [facility] (15 min) Moderate 09/04/2015 Patient Education: Patient Medication Summary Completed 09/04/2015 Visit Plan: Ecchymosis/hematoma - improving - discussed natural progression of hematomas - watchful waiting. 2015 Appointment: Araceli Silva WPtel: [facility]0 [facility] (15 min) Moderate 2015 Patient Education: Patient Medication Summary Completed 2015 Visit Plan: Cellulitis - continue with oral antibiotics as previously directed, return to clinic as previously directed, call for acute change in symptoms, worsening redness, warmth, discharge. 07/18/2015 Appointment: Ila Kennedy WPtel: [phone] [place] (30 min) Complex 07/18/2015 Patient Education: Patient Medication Summary Completed 07/18/2015 Visit Plan: Chronic Pain Syndrome - pt has chronic pain - has been maintained on current medications, has not sought out other medications , only uses PRN pain medications as directed, and understands the consequences of over-medication. Osteoporosis - prolia injections to be ordered for the pt through the cancer center/surgery center. 07/02/2015 Appointment: Araceli Silva WPtel: [facility]2 [facility] [place] (15 min) Moderate 07/02/2015 Patient Education: Patient Medication Summary Completed 07/02/2015 Visit Plan: Hypertension - well controlled - continue with current medications, continue with no added salt diet. Pt has been encouraged to exercise daily. The pt has been advised to call the office if there are any acute concerns about change in blood pressure readings at home. Planned surgery for left 5th toe - pt clinically stable for surgery. Spinal stenosis - refilled pain medication. 05/31/2015 Patient Education: Patient Medication Summary Completed 05/31/2015 Patient Education: Hypertension Completed 05/31/2015 Patient Education: Patient Medication Summary Completed 04/10/2015 Visit Plan: Iron deficiency Anemia - recommended pt to have labs today. Hypertension - well controlled - continue with current medications, continue with no added salt diet. Pt has been encouraged to exercise daily. The pt has been advised to call the office if there are any acute concerns about change in blood pressure readings at home. Chronic Pain Syndrome - pt has chronic pain - has been maintained on current medications, has not sought out other medications, only uses PRN pain medications as directed , and understands the consequences of over-medication. Cerumen Impaction - The impacted cerumen was removed with the use of the ear currette. The patient tolerated the procedure without incident and had improvement in hearing. The wax was removed by the practitioner due to the wax being more complicated to remove, and staff was needed to assist the removal of the wax by holding the ear , and keeping patient stabilized during the removal process. 04/09/2015 Visit Plan: Iron deficiency Anemia - recommended pt to have labs today. Hypertension - well controlled - continue with current medications, continue with no added salt diet. Pt has been encouraged to exercise daily. The pt has been advised to call the office if there are any acute concerns about change in blood pressure readings at home. Chronic Pain Syndrome - pt has chronic pain - has been maintained on current medications, has not sought out other medications, only uses PRN pain medications as directed , and understands the consequences of over-medication. Cerumen Impaction - The impacted cerumen was removed with the use of the ear currette. The patient tolerated the procedure without incident and had improvement in hearing. The wax was removed by the practitioner due to the wax being more complicated to remove, and staff was needed to assist the removal of the wax by holding the ear , and keeping patient stabilized during the removal process. pt given rx for 4 wheeled walker with seat - she has spinal stenosis and has weakness with her lower legs/back and is easily fatigued with ambulation. I have recommended the 4 wheeled walker to assist her ambulation and safety with ambulation. 04/09/2015 Appointment: Araceli Silva [facility]Ptel: [phone] (15 min) Moderate 04/09/2015 Patient Education: Patient Medication Summary Completed 04/09/2015 Patient Education: Hypertension Completed 04/09/2015 Visit Plan: Hypertension - well controlled - continue with current medications, continue with no added salt diet. Pt has been encouraged to exercise daily. The pt has been advised to call the office if there are any acute concerns about change in blood pressure readings at home. Hyperlipidemia - pt has been counseled about appropriate diet, exercise, and need for low fat food choices. I have discussed the need for the patient to take medications as prescribed. If the patient has negative side effects from the medication, they are to CALL the office and not abruptly discontinue the medication without discussion with a practitioner in the office. We will check labs in 3-6 months for follow up on the patient's chronic medical problem and to assure normal liver response to medications. Vitamin D deficiency - continue with vitamin d supplementation. 02/08/2015 Appointment: Araceli Silva [facility]Ptel: [phone] (15 min) Moderate 02/08/2015 Patient Education: Patient Medication Summary Completed 02/08/2015 Patient Education: Hypertension Completed 02/08/2015 Appointment: Marlee 01/10/2015 Patient Education: Patient Medication Summary Completed 01/10/2015 Visit Plan: Hypertension - well controlled - continue with current medications, continue with no added salt diet. Pt has been encouraged to exercise daily. The pt has been advised to call the office if there are any acute concerns about change in blood pressure readings at home. Edema - stable - continue with three times weeklly lasix. OA - uncontrolled - increase naproxen to 500mg in the morning and 1/2 pill in the evening. 12/11/2014 Visit Plan: Hypertension - well controlled - continue with current medications, continue with no added salt diet. Pt has been encouraged to exercise daily. The pt has been advised to call the office if there are any acute concerns about change in blood pressure readings at home. Edema - stable - continue with three times weeklly lasix. OA - uncontrolled - increase naproxen to 500mg in the morning and 1/2 pill in the evening. 12/11/2014 Visit Plan: Hypertension - well controlled - continue with current medications, continue with no added salt diet. Pt has been encouraged to exercise daily. The pt has been advised to call the office if there are any acute concerns about change in blood pressure readings at home. Edema - stable - continue with three times weeklly lasix. OA - uncontrolled - increase naproxen to 500mg in the morning and 1/2 pill in the evening. 12/11/2014 Appointment: Araceli Silva WPtel: [address] [place], [place] [id number] (15 min) Moderate 12/11/2014 Patient Education: Patient Medication Summary Completed 12/11/2014 Patient Education: Hypertension Completed 12/11/2014 Visit Plan: Hypertension - well controlled - continue with current medications, continue with no added salt diet. Pt has been encouraged to exercise daily. The pt has been advised to call the office if there are any acute concerns about change in blood pressure readings at home. Skin lesion - improving - continue with separation of the skin with gauze pads, call if worsening. Edema - improved. 11/09/2014 Appointment: Araceli Silva WPtel: [facility] (15 min) Moderate 11/09/2014 Patient Education: Patient Medication Summary Completed 11/09/2014 Patient Education: Hypertension Completed 11/09/2014 Visit Plan: Leg pain/cellulitis of leg - start on the doxycycline twice daily - take this x 2 weeks, if the symptoms in your leg/ thigh are not completely resolved, there is a refill that is available. start on a probiotic one pill daily ([employer] or [employer]) this will help prevent the development of a bad type of diarrhea that can occur when taking antibiotics. Ulcer of toe - improving. 10/23/2014 Appointment: Araceli Silva WPtel: [facility]8 [id number] (15 min) Moderate 10/23/2014 Patient Education: Patient Medication Summary Completed 10/23/2014 Visit Plan: Ulcer - keep lesion covered, antibiotic ointment to be used, monitor - call if redness increases or starts streaking up the foot. 10/16/2014 Appointment: Araceli Silva WPtel: [facility] [place] [phone] (15 min) Moderate 10/16/2014 Patient Education: Patient Medication Summary Completed 10/16/2014 Visit Plan: Ulcer of toes-wound lightly debrided today in the office and culture obtained-keep toes clean and dry and we will call with culture results-instructed the patient to call us for redness, swelling, drainage, etc and we will start on abx. Patient verbalized understanding of plan. 10/09/2014 Appointment: (15 min) Moderate 10/09/2014 Patient Education: Patient Medication Summary Completed 10/09/2014 Care Plan: Annel BAIRD RTS Pending 10/09/2014 Visit Plan: Edema - pt has been advised to elevate legs to prevent dependent edema, compression has been recommended to help to naturally decrease peripheral edema. Diuretic use has been discussed and pt has been instructed in appropriate use of such medication as necessary to further attempt to reduce peripheral edema. 09/14/2014 Appointment: Araceli Silva WPtel: [id number] Follow up 09/14/2014 Patient Education: Patient Medication Summary Completed 09/14/2014 Visit Plan: Edema - pt has been advised to elevate legs to prevent dependent edema, compression has been recommended to help to naturally decrease peripheral edema. Diuretic use has been discussed and pt has been instructed in appropriate use of such medication as necessary to further attempt to reduce peripheral edema. Hypertension - well controlled - continue with current medications, continue with no added salt diet. Pt has been encouraged to exercise daily. The pt has been advised to call the office if there are any acute concerns about change in blood pressure readings at home. 08/11/2014 Patient Education: Patient Medication Summary Completed 08/11/2014 Patient Education: Hypertension Completed 08/11/2014 Visit Plan: Hyperlipidemia - pt has been counseled about appropriate diet, exercise, and need for low fat food choices. I have discussed the need for the patient to take medications as prescribed. If the patient has negative side effects from the medication, they are to CALL the office and not abruptly discontinue the medication without discussion with a practitioner in the office. We will check labs in 3-6 months for follow up on the patient's chronic medical problem and to assure normal liver response to medications. Osteoporosis - continue with foxamax - monitor Dexa - continue with vitamin D, check levels. Chronic Pain Syndrome - pt has chronic pain - has been maintained on current medications, has not sought out other medications, only uses PRN pain medications as directed, and understands the consequences of over- medication. 07/12/2014 Appointment: Araceli Silva WPtel[facility] [phone] [id number] [place] ([place] New Patient 07/12/2014 Patient Education: Patient Medication Summary Completed 07/12/2014 Patient Education: Hypertension Completed 07/12/2014 Referral: Dr Virgen Referral Completed Referral: External, Ordering Provider Referral Completed Referral: [facility] WPtel: Referral Initiated Instructions Comment . Fatigue and Anemia - recommended stat labs - CBC showed Hgb of 8.3 - iron panel added to blood in labs - will wait on those reports - but will have pt get a blood transfusion tomorrow. Will possibly get pt in for iron transfusion. Edema - increase lasix x 10 days to bid, then use prn swelling. Check magnesium level . Chronic Pain Syndrome - pt has chronic pain - has been maintained on current medications, has not sought out other medications, only uses PRN pain medications as directed, and understands the consequences of over- medication. Continue with Fentanyl and continue with oxycodone at current dose. Hypertension - well controlled - continue with current medications, continue with no added salt diet. Pt has been encouraged to exercise daily. The pt has been advised to call the office if there are any acute concerns about change in blood pressure readings at home. Inflammatory Arthritis - continue with Remicaide. . Lymphedema of upper and lower extremities with hx of Afib with heart failure - I have recommended pt to have a hospital bed with air mattress Pt did not need joints drained today. . Hemarthrosis shoulders - 175mL from left shoulder - Left and right shoulder pain and swelling, swelling into arms and left breast - pt to keep appt with lymphedema clinic for compression sleeves. Edema - pt has been advised to elevate legs to prevent dependent edema, compression has been recommended to help to naturally decrease peripheral edema. Diuretic use has been discussed and pt has been instructed in appropriate use of such medication as necessary to further attempt to reduce peripheral edema. . Chronic neck pain, arthritis, right arm pain - pt has symptoms of uncontrolled pain despite current pain medications, discussed with Dr. Silva - will increase fentanyl patch dose in attempt to better control pt 's pain and improve quality of life, and to allow pt to perform activities of daily living. Pt is to notify clinic if her symptoms do not improve, if they worsen, or with any changes, questions, or concerns. Chronic Pain Syndrome - pt has chronic pain - has been maintained on current medications, has not sought out other medications, only uses PRN pain medications as directed, and understands the consequences of over-medication. . Hemarthrosis - drain right shoulder. Injection of kenalog 1mL - 40mg - Reactivity - lot #[id number] , expires oct 2017 Chronic Pain Syndrome - pt has chronic pain - has been maintained on current medications, has not sought out other medications, only uses PRN pain medications as directed, and understands the consequences of over-medication. . Hemarthrosis - drain right shoulder. Chronic Pain Syndrome - pt has chronic pain - has been maintained on current medications, has not sought out other medications, only uses PRN pain medications as directed, and understands the consequences of over-medication. . Left shoulder pain - ecchymosis of the shoulder - Pt denies trauma - will check x-ray - will treat as indicated, pt is to notify clinic if symptoms do not improve, if they worsen, or with any questions or concerns. Pt is to go to the ER if shoulder becomes, red or warm to the touch, or with any dyspnea. . Hemarthrosis - pt was prepped and draped in sterile fashion - sterile 20 gauge needle used to access joint and drain via arthrocentesis - over 55mL of blood from joint. Dressed with pressure dressing and bandaid - advised to call if not improving or repeat drainage needed. . Hypertension - well controlled - continue with current medications, continue with no added salt diet. Pt has been encouraged to exercise daily. The pt has been advised to call the office if there are any acute concerns about change in blood pressure readings at home. Urge incontinence - vesicare 10mg daily - call if not improving. Edema - compression socks - keep legs elevated. RA - pt seeing Dr. Ambrocio's associate. Continue with steroids, immunosuppression. . Chronic Pain Syndrome - pt has chronic pain - has been maintained on current medications, has not sought out other medications, only uses PRN pain medications as directed, and understands the consequences of over- medication. Neck pain with torticollis - pt is referred to Al[facility] Eisenberg for dry needling technique. Nocturia - pt needs compression socks on during the day and to call if symptoms are not improved with less leg edema at night. weakness - pt has daytime awakening weakness - suspect this is due to poor food intake during the day and evening - pt encouraged to have 6 small meals during the daytime. . Chronic Pain Syndrome - pt has chronic pain - has been maintained on current medications, has not sought out other medications, only uses PRN pain medications as directed, and understands the consequences of over- medication. . Left shoulder pain - improving - pt is to notify clinic if symptoms do not improve, if they worsen, or with any questions or concerns. Nocturia - will give samples, pt is to notify clinic if symptoms do not improve. . Chronic Pain Syndrome - pt has chronic pain - has been maintained on current medications, has not sought out other medications, only uses PRN pain medications as directed, and understands the consequences of over- medication. Pt is not well controlled and I have recommended that her dose of fentanyl be increased to 125mcg daily RA - - uncontrolled symptoms - recommended patient to have a taper of steroids over the next month down to her usual dose of 5mg daily. Pt advised to take her carafate with the prednisone to help decrease stomach upset. . Edema-worsening- pt has persistent worsening of her edema - her son-in-law is with her today- we have discussed admission to the hospital. I have recommended admission to inpatient rehab - the plan is for admission to inpatient rehab on of this week. I will order IV lasix drip and closely monitor her intake and output. . Hemarthrosis - pt was prepped and draped in sterile fashion - sterile 20 gauge needle used to access joint and drain via arthrocentesis - over 60mL of blood from joint. Dressed with pressure dressing and bandaid - advised to call if not improving or repeat drainage needed. Kenalog injected into joint after completion of removal of blood from shoulder . Hypertension - well controlled - continue with current medications, continue with no added salt diet. Pt has been encouraged to exercise daily. The pt has been advised to call the office if there are any acute concerns about change in blood pressure readings at home. Chronic Pain Syndrome - pt has chronic pain - has been maintained on current medications, has not sought out other medications, only uses PRN pain medications as directed, and understands the consequences of over-medication. Hemarthrosis shoulders - 250mL from left shoulder and scant from right shoulder with 1ml kenalog injected into right and left shoulders - Left and right shoulder pain and swelling, swelling into arms and left breast -pt to continue with use of compression sleeves. Edema - pt has been advised to elevate legs to prevent dependent edema, compression has been recommended to help to naturally decrease peripheral edema. Diuretic use has been discussed and pt has been instructed in appropriate use of such medication as necessary to further attempt to reduce peripheral edema. . Hemarthrosis shoulders - 70mL from left shoulder with 1ml kenalog injected into left shoulders - Left shoulder pain and swelling, swelling into arms and left breast -pt to continue with use of compression sleeves. Chronic Pain Syndrome - pt has chronic pain - has been maintained on current medications, has not sought out other medications, only uses PRN pain medications as directed, and understands the consequences of over-medication. . Urge Incontinence - continue with myrbetric 50mg dose given to patient. Lymphedema - order juan daniel to do a lymphedema fitting on her right arm - dx lymphedema Chronic pain - rx for fentanyl 75mcg patches and 25mcg patches - rx for oxycontin 30mg 1/2 pill q6 hours #120. - hold oxycontin 10mg dose for now boppy pillow - in the maternity section compression wraps - velcro/neoprene - lymphedema section in medical . Upper and lower extremity edema - continue with higher protein diet, diuretic therapy, compression wraps. Hypertension - well controlled - continue with current medications, continue with no added salt diet. Pt has been encouraged to exercise daily. The pt has been advised to call the office if there are any acute concerns about change in blood pressure readings at home. Rheumatoid arthritis - progressive symptoms with increased joint discomfort. I have recommended that the patient have a scooter as her mobility has been worsening. She cannot ambulate without a walker and cannot ambulate more than 10 feet without stopping to rest. She has the cognitive and physical capability to maneuver a walker. She cannot use her arms to maneuver a manual wheelchair as she has complete degeneration of her shoulders and severe RA of hands/fingers. We will contact [employer] in [place] for paperwork regarding the scooter. . Hypertension - well controlled - continue with current medications, continue with no added salt diet. Pt has been encouraged to exercise daily. The pt has been advised to call the office if there are any acute concerns about change in blood pressure readings at home. Chronic Pain Syndrome - pt has chronic pain - has been maintained on current medications, has not sought out other medications, only uses PRN pain medications as directed, and understands the consequences of over-medication. take lasix daily x 10 days then you can just take it as needed for swelling in the legs. when taking lasix, take a potassium as well. take the vesicare at night - it should help to decrease the bladder spasms . Edema - pt has been advised to elevate legs to prevent dependent edema, compression has been recommended to help to naturally decrease peripheral edema. Diuretic use has been discussed and pt has been instructed in appropriate use of such medication as necessary to further attempt to reduce peripheral edema. take lasix daily x 10 days then you can just take it as needed for swelling in the legs. when taking lasix, take a potassium as well. take the vesicare at night - it should help to decrease the bladder spasms . Lymphedema of upper and lower extremities with hx of Afib with heart failure - Edema of lower extremities - keep elevated - monitor symptoms - advised pt to use her zero-gravity setting on her chair, use compression wraps Home Health for occupational therapy and physical therapy to aide improved function physically and occ therapy for lymphedema management. Rheumatoid arthritis and OA of multiple joints with derrangement of shoulders, hands, with difficulty of movement, cannot push herself out of a chair due to her hand and shoulder pain. - monitor symptoms - continue with supportive care at this time. I have recommended that they look into a power wheel chair if her insurance will cover it as this would be best for her with ease of movement in the wheelchair as well as aiding improvement of her lymphedema. Chronic Pain Syndrome - pt has chronic pain - has been maintained on current medications, has not sought out other medications, only uses PRN pain medications as directed, and understands the consequences of over-medication. next mammogram will be due in Oct. Cervical Spine pain - continue with supportive care - monitor symptoms. Chronic Pain Syndrome - pt has chronic pain - has been maintained on current medications, has not sought out other medications, only uses PRN pain medications as directed, and understands the consequences of over-medication. . Rheumatoid arthritis of shoulders, Severe edema of upper and lower extremities - pt has progressive deblity - she cannot lift her lower extremities with her arms to get them elevated onto her bed and she cannot lift her legs under her own power as her leg and back muscles are too weak to aide in lifting her legs from the floor to the bed. Pt has used wedge pillows in the past - did not work - has tried regular pillows in the past as well to wedge herself up in bed, which also did not work due to not enough elevation and pt's inability to get her legs lifted up off of the ground to the bed. She cannot lift her legs into the bed without assistance, she also cannot place her legs on pillows without assistance. no open pressure ulcers on buttock - however she has redness to her coccyx. weeping pressure ulcer on left leg compression placed on leg. Lymphedema of upper and lower extremities with hx of Afib with heart failure - I have recommended pt to have a hospital bed with air mattress to prevent further development of pressure ulcers and to also prevent further edema as she needs her legs elevated while in bed to prevent further lymphedema. Pt did not need joints drained today. bumex daily in the afternoon . Edema-worsening- discussed with Dr Silva-continue with lymphedema wraps -rx for bumex provided and instructed on use- follow up with Dr Silva on Thursday as scheduled. Patient verbalized understanding of plan. bumex daily in the afternoon . Edema-worsening- discussed with Dr Silva-continue with lymphedema wraps -rx for bumex provided and instructed on use- follow up with Dr Silva on Thursday as scheduled. Patient verbalized understanding of plan. . Hemarthrosis shoulders - 250mL from left shoulder and 100mL from right shoulder with 1ml kenalog injected into right and left shoulders - Left and right shoulder pain and swelling, swelling into arms and left breast -pt to continue with use of compression sleeves. [id number] sep 2018 bristol 2ml kenalog . Edema/Lymphedema - prn metalozone rx sent to pharmacy. Keep legs elevated and wrapped. Chronic Pain Syndrome - pt has chronic pain - has been maintained on current medications, has not sought out other medications, only uses PRN pain medications as directed, and understands the consequences of over-medication. . Hypertension - well controlled - continue with current medications, continue with no added salt diet. Pt has been encouraged to exercise daily. The pt has been advised to call the office if there are any acute concerns about change in blood pressure readings at home. Chronic Pain Syndrome - pt has chronic pain - has been maintained on current medications, has not sought out other medications, only uses PRN pain medications as directed, and understands the consequences of over-medication. Rash - on face, check ROMIE. . Hemarthrosis shoulders - 200mL from left shoulder - Left and right shoulder pain and swelling, swelling into arms and left breast - pt to keep appt with lymphedema clinic for compression sleeves. Edema - pt has been advised to elevate legs to prevent dependent edema, compression has been recommended to help to naturally decrease peripheral edema. Diuretic use has been discussed and pt has been instructed in appropriate use of such medication as necessary to further attempt to reduce peripheral edema. Chronic pain syndrome - stable on fentanyl - monitor symptoms. . Atrial fibrillation - pt's rate is controlled, she cannot be on blood thinner medications due to her recurrent anemia and hemarthrosis - pt to continue with current management. Hemarthrosis bilateral shoulders - 180mL from left shoulder and 55mL right shoulder - Left and right shoulder pain and swelling, swelling into arms and left breast -pt to keep appt with lymphedema clinic for compression sleeves. Anemia - check labs today- discussed with pt - does not need to have blood transfusion at this time. Edema - pt has been advised to elevate legs to prevent dependent edema, compression has been recommended to help to naturally decrease peripheral edema. Diuretic use has been discussed and pt has been instructed in appropriate use of such medication as necessary to further attempt to reduce peripheral edema. . Hemarthrosis shoulders - 120mL from left shoulder and no fluid from right shoulder with 1ml kenalog injected into right and left shoulders - Left and right shoulder pain and swelling, swelling into arms and left breast -pt to continue with use of compression sleeves. . Hypertension - well controlled - continue with current medications, continue with no added salt diet. Pt has been encouraged to exercise daily. The pt has been advised to call the office if there are any acute concerns about change in blood pressure readings at home. Lymphedema - Will have her re-initiate DEANGELO bandages tonight and give IV lasix tomorrow x 1 dose of 80mg and potassium 20meq iv x 1. chronic pain - monitor symptoms - continue with fentanyl and oxycodone scheduled. we are going to check the iron levels, protein levels, renal and liver function as well as a cbc today. Once we get the results back, we will let Ese know about whether or not Fernando needs to have IV iron. We have the one shot treatment for iron back at the hospital - since Fernando cannot tolerate the oral iron - we may need to consider scheduling her for iron labs every 3-4 months and if her iron levels and CBC are low - she may need to get IV iron 3 to 4 times a year to replenish her iron stores as she is not getting enough in her daily intake and does not seem to be able to store the iron as one would usually when having a regular diet. We will see Fernando back in the office in about 3 weeks. . Lymphedema of upper and lower extremities with hx of Afib with heart failure - Edema of lower extremities - keep elevated - monitor symptoms - advised pt to use her zero-gravity setting Anemia - hx of iron deficiency - we are going to check the iron levels, protein levels, renal and liver function as well as a cbc today. Once we get the results back, we will let Ese know about whether or not Fernando needs to have IV iron. We have the one shot treatment for iron back at the hospital - since Fernando cannot tolerate the oral iron - we may need to consider scheduling her for iron labs every 3-4 months and if her iron levels and CBC are low - she may need to get IV iron 3 to 4 times a year to replenish her iron stores as she is not getting enough in her daily intake and does not seem to be able to store the iron as one would usually when having a regular diet. We will see Fernando back in the office in about 3 weeks. Rheumatoid arthritis - monitor symptoms - continue with supportive care at this time. . Sacroiliitis - back exercises discussed with the patient , pt to continue with anti-inflammatories. Pt is to call if the symptoms do not improve or if they worsen. Kenalog injection today in the office. ok for appt with Danuta Klein - for hearing testing - no referral is needed. recommend heat to neck/right shoulder - use muscle rub on the neck and upper right shoulder - get tiger balm to use on the neck . Chronic Pain Syndrome - pt has chronic pain - has been maintained on current medications, has not sought out other medications, only uses PRN pain medications as directed, and understands the consequences of over-medication. Neck pain and Muscle spasms - recommended muscle rub. Hyperlipidemia - pt has been counseled about appropriate diet, exercise, and need for low fat food choices. I have discussed the need for the patient to take medications as prescribed. If the patient has negative side effects from the medication, they are to CALL the office and not abruptly discontinue the medication without discussion with a practitioner in the office. We will check labs in 3-6 months for follow up on the patient's chronic medical problem and to assure normal liver response to medications. . Left and right shoulder pain and swelling, swelling into arms and left breast - Dr. Silva in to evaluate pt - will refer pt to lymphedema clinic for compression sleeves. Pt is to notify clinic if symptoms do not improve, or with any changes, questions, or concerns. Edema - pt has been advised to elevate legs to prevent dependent edema, compression has been recommended to help to naturally decrease peripheral edema. Diuretic use has been discussed and pt has been instructed in appropriate use of such medication as necessary to further attempt to reduce peripheral edema. stop the simvastatin - due to muscle aches - it will take about 2 weeks for the medication to get out of your body decrease the premarin to every other day x 1 week then twice a week x 1 week then stop the premarin. . Hypertension - well controlled - continue with current medications, continue with no added salt diet. Pt has been encouraged to exercise daily. The pt has been advised to call the office if there are any acute concerns about change in blood pressure readings at home. Chronic Pain Syndrome - pt has chronic pain - has been maintained on current medications, has not sought out other medications, only uses PRN pain medications as directed, and understands the consequences of over-medication. stop the simvastatin - due to muscle aches - it will take about 2 weeks for the medication to get out of your body decrease the premarin to every other day x 1 week then twice a week x 1 week then stop the premarin. . Hemarthrosis shoulders - 100mL from left shoulder - Left and right shoulder pain and swelling, swelling into arms and left breast - pt to keep appt with lymphedema clinic for compression sleeves. Kenalog 40mg given to pt in shoulder joint. Edema - pt has been advised to elevate legs to prevent dependent edema, compression has been recommended to help to naturally decrease peripheral edema. Diuretic use has been discussed and pt has been instructed in appropriate use of such medication as necessary to further attempt to reduce peripheral edema. Chronic pain syndrome - stable on fentanyl - monitor symptoms. alaway or zatador eye drops for allergies . OA with acute swelling in shoulders bilaterally right shoulder with increased pain compared to left. I have recommended a referral to Dr. Ambrocio Pt is not a good candidate for oral antiinflammatories or steroids due to GI bleeding. Hearing loss - referral to audiology - [facility] Chronic pain - increase fentanyl to 75mcg change q72 hours. Monitor symptoms of pain control on the topical medication. Anemia - check cbc today. . Ecchymosis/hematoma - improving - discussed natural progression of hematomas - watchful waiting. . Tick Bite - pt given script for treatment of infected tick bite, call for symptoms of worsening infection or nonhealing. . Tick Bite - pt given script for treatment of infected tick bite, call for symptoms of worsening infection or nonhealing. . Hypertension - well controlled - continue with current medications, continue with no added salt diet. Pt has been encouraged to exercise daily. The pt has been advised to call the office if there are any acute concerns about change in blood pressure readings at home. Hyperlipidemia - pt has been counseled about appropriate diet, exercise, and need for low fat food choices. I have discussed the need for the patient to take medications as prescribed. If the patient has negative side effects from the medication, they are to CALL the office and not abruptly discontinue the medication without discussion with a practitioner in the office. We will check labs in 3-6 months for follow up on the patient's chronic medical problem and to assure normal liver response to medications. Vitamin D deficiency - continue with vitamin d supplementation. . Edema - pt has been advised to elevate legs to prevent dependent edema, compression has been recommended to help to naturally decrease peripheral edema. Diuretic use has been discussed and pt has been instructed in appropriate use of such medication as necessary to further attempt to reduce peripheral edema. Hypertension - well controlled - continue with current medications, continue with no added salt diet. Pt has been encouraged to exercise daily. The pt has been advised to call the office if there are any acute concerns about change in blood pressure readings at home. start on the doxycycline twice daily - take this x 2 weeks , if the symptoms in your leg/thigh are not completely resolved, there is a refill that is available. start on a probiotic one pill daily (BO.LT or [employer]) this will help prevent the development of a bad type of diarrhea that can occur when taking antibiotics. . Leg pain/cellulitis of leg - start on the doxycycline twice daily - take this x 2 weeks, if the symptoms in your leg/thigh are not completely resolved, there is a refill that is available. start on a probiotic one pill daily (BO.LT or [employer]) this will help prevent the development of a bad type of diarrhea that can occur when taking antibiotics. Ulcer of toe - improving. . Hypertension - well controlled - continue with current medications, continue with no added salt diet. Pt has been encouraged to exercise daily. The pt has been advised to call the office if there are any acute concerns about change in blood pressure readings at home. Planned surgery for left 5th toe - pt clinically stable for surgery. Spinal stenosis - refilled pain medication. . Hypertension - well controlled - continue with current medications, continue with no added salt diet. Pt has been encouraged to exercise daily. The pt has been advised to call the office if there are any acute concerns about change in blood pressure readings at home. Edema - stable - continue with three times weeklly lasix. OA - uncontrolled - increase naproxen to 500mg in the morning and 1/2 pill in the evening. . Hypertension - well controlled - continue with current medications, continue with no added salt diet. Pt has been encouraged to exercise daily. The pt has been advised to call the office if there are any acute concerns about change in blood pressure readings at home. Edema - stable - continue with three times weeklly lasix. OA - uncontrolled - increase naproxen to 500mg in the morning and 1/2 pill in the evening. . Hypertension - well controlled - continue with current medications, continue with no added salt diet. Pt has been encouraged to exercise daily. The pt has been advised to call the office if there are any acute concerns about change in blood pressure readings at home. Edema - stable - continue with three times weeklly lasix. OA - uncontrolled - increase naproxen to 500mg in the morning and 1/2 pill in the evening. . Hypertension - well controlled - continue with current medications, continue with no added salt diet. Pt has been encouraged to exercise daily. The pt has been advised to call the office if there are any acute concerns about change in blood pressure readings at home. Skin lesion - improving - continue with separation of the skin with gauze pads, call if worsening. Edema - improved. . Hypertension - well controlled - continue with current medications, continue with no added salt diet. Pt has been encouraged to exercise daily. The pt has been advised to call the office if there are any acute concerns about change in blood pressure readings at home. Chronic Pain Syndrome - pt has chronic pain - has been maintained on current medications, has not sought out other medications, only uses PRN pain medications as directed, and understands the consequences of over-medication. . Iron deficiency Anemia - recommended pt to have labs today. Hypertension - well controlled - continue with current medications, continue with no added salt diet. Pt has been encouraged to exercise daily. The pt has been advised to call the office if there are any acute concerns about change in blood pressure readings at home. Chronic Pain Syndrome - pt has chronic pain - has been maintained on current medications, has not sought out other medications, only uses PRN pain medications as directed, and understands the consequences of over-medication. Cerumen Impaction - The impacted cerumen was removed with the use of the ear currette. The patient tolerated the procedure without incident and had improvement in hearing. The wax was removed by the practitioner due to the wax being more complicated to remove, and staff was needed to assist the removal of the wax by holding the ear, and keeping patient stabilized during the removal process. . Iron deficiency Anemia - recommended pt to have labs today. Hypertension - well controlled - continue with current medications, continue with no added salt diet. Pt has been encouraged to exercise daily. The pt has been advised to call the office if there are any acute concerns about change in blood pressure readings at home. Chronic Pain Syndrome - pt has chronic pain - has been maintained on current medications, has not sought out other medications, only uses PRN pain medications as directed, and understands the consequences of over-medication. Cerumen Impaction - The impacted cerumen was removed with the use of the ear currette. The patient tolerated the procedure without incident and had improvement in hearing. The wax was removed by the practitioner due to the wax being more complicated to remove, and staff was needed to assist the removal of the wax by holding the ear, and keeping patient stabilized during the removal process. pt given rx for 4 wheeled walker with seat - she has spinal stenosis and has weakness with her lower legs/back and is easily fatigued with ambulation. I have recommended the 4 wheeled walker to assist her ambulation and safety with ambulation. . Ulcer - keep lesion covered, antibiotic ointment to be used, monitor - call if redness increases or starts streaking up the foot. . Hemarthrosis -right shoulder-only able to drain 5ml of bloody drainage-unable to give oral steroids due to recent GI bleed-will give kenalog injection today in the office-discussed getting OSMO patch two old goats muscle rub from [employer] and home. . Chronic Pain Syndrome - pt has chronic pain - has been maintained on current medications, has not sought out other medications, only uses PRN pain medications as directed, and understands the consequences of over-medication. Muscle spasms - recommended muscle rub. . Edema - pt has been advised to elevate legs to prevent dependent edema, compression has been recommended to help to naturally decrease peripheral edema. Diuretic use has been discussed and pt has been instructed in appropriate use of such medication as necessary to further attempt to reduce peripheral edema. . Hyperlipidemia - pt has been counseled about appropriate diet, exercise, and need for low fat food choices. I have discussed the need for the patient to take medications as prescribed. If the patient has negative side effects from the medication, they are to CALL the office and not abruptly discontinue the medication without discussion with a practitioner in the office. We will check labs in 3-6 months for follow up on the patient's chronic medical problem and to assure normal liver response to medications. Osteoporosis - continue with foxamax - monitor Dexa - continue with vitamin D, check levels. Chronic Pain Syndrome - pt has chronic pain - has been maintained on current medications, has not sought out other medications, only uses PRN pain medications as directed, and understands the consequences of over-medication. Keep toes clean and dry-call if sore does not completely heal We will ping you when we get the wound culture results back . Ulcer of toes-wound lightly debrided today in the office and culture obtained -keep toes clean and dry and we will call with culture results-instructed the patient to call us for redness, swelling, drainage, etc and we will start on abx. Patient verbalized understanding of plan. . Cellulitis - continue with oral antibiotics as previously directed, return to clinic as previously directed, call for acute change in symptoms, worsening redness, warmth, discharge. . Discussed MRI of the neck - pt is interested in doing this - however, not prior to changing her medication first to see if this helps her pain . Chronic Pain Syndrome - pt has chronic pain - has been maintained on current medications, has not sought out other medications, only uses PRN pain medications as directed, and understands the consequences of over- medication. Osteoporosis - prolia injections to be ordered for the pt through the cancer center/surgery center.
--- OUTSIDE RECORDS SUMMARY | 2018-01-25 16:56 | XMS REPORT | CCD ---
Author Author [facility] Silva Organization [facility] Address [address] [place] [address] Phone Care Team Providers Care Mixer Pigment Name Role Phone PP Unavailable CCM Unavailable Summary Purpose Interface Exchange Insurance Providers Payer name Policy type / Coverage type Covered republican ID Effective Begin Date Effective End Date [employer] Medicare Part B [id number] 2017 Unknown AETNA Medicare Part B [id number] Unknown Family history Father Diagnosis Age At [...] Unknown Retired 07/12/[address]: 3060077 Quit over 10 years ago 1968 07/12/2014 Alcohol history Unknown occasionally drinks alcohol 07/12/2014 Allergies, Adverse Reactions, Alerts Substance Reaction Codes Entered Date Inactivated Date Status * NO KNOWN FOOD ALLERGIES Unknown 07/12/2014 No Inactive Date Active Penicillin Unknown 07/12/2014 No Inactive Date Active SULFA(SULFONAMIDE ANTIBIOTICS) Unknown 07/12/2014 No Inactive Date Active Past Medical History Illness Codes Condition Status Onset Date Resolved Date Chronic pain syndrome ICD-9: 338.4 ICD-10: G89.4 Active 10/07/2016 Unknown Essential (primary) hypertension ICD-9: 401.1 ICD-10: I10 Active 09/29/2017 Unknown Generalized edema ICD- 9: 782.3 ICD-10: R60.1 Active 11/27/2017 Unknown Localized edema ICD-9 : 782.3 ICD-10: R60.0 Active 08/10/2014 Unknown Lymphedema, not elsewhere classified ICD-9: 457.1 ICD-10: I89.0 Active 11/17/2016 Unknown Pain in left shoulder ICD-9: 719.41 [...] ICD-9: 714.0 ICD-10: M06.011 Active 03/12/2017 Unknown Anemia, unspecified ICD-9: 285.9 [...] Problems Condition Codes Effective Dates Condition Status Chronic pain syndrome ICD-9: 338.4 ICD-10: G89.4 10/07/2016 Active Essential (primary) hypertension ICD-9: 401.1 ICD-10: I10 09/29/2017 Active Generalized edema ICD- 9: 782.3 ICD-10: R60.1 11/27/2017 Active Localized edema ICD-9 : 782.3 ICD-10: R60.0 08/10/2014 Active Lymphedema, not elsewhere classified ICD-9: 457.1 ICD-10: I89.0 11/17/2016 Active Pain in left shoulder ICD-9: 719.41 [...] shoulder ICD-9: 714.0 ICD-10: M06.011 03/12/2017 Active Anemia, unspecified ICD-9: 285.9 ICD-10: [...] Fill Instructions oxycodone 30 mg tablet RxNorm: 6752549 1/2 Tablet(s) PO Q6 03/14/2018 Active fentanyl 100 mcg/hr transdermal patch RxNorm: 013316 1 Patch TD Q72H use with 25mcg/hr patch 01/14/2018 02/12/2018 Active fentanyl 25 mcg/hr transdermal patch RxNorm: 434388 1 Patch TD Q72H use with 100mcg patch for a total of 125mcg daily 01/14/2018 02/12/2018 Active metolazone 10 mg tablet RxNorm: 553133 1 Tablet(s) PO every other day as needed uncontrolled edema 01/07/2018 02/05/2018 Active metolazone 10 mg tablet RxNorm: 666887 1 Tablet(s) PO every other day as needed uncontrolled edema 01/07/2018 01/06/2018 Inactive Cipro 500 mg tablet RxNorm: 880313 1 Tablet(s) PO BID 201701/15/2018 Active Cipro 500 mg tablet RxNorm: 567857 1 Tablet(s) PO BID 201701/05/2018 Inactive Cardizem CD 360 mg capsule,extended release RxNorm: 399916 1 Capsule(s) PO daily 01/05/2018 05/04/2018 Active potassium chloride ER 10 mEq tablet,extended release(part/ cryst) RxNorm: 3351261 2 Capsule(s) PO TID when taking lasix 01/05/2018 05/04/2018 Active potassium chloride ER 10 mEq capsule,extended release RxNorm: 587146 Capsule(s) TAKE 1 CAPSULE BY MOUTH TWICE DAILY WHEN TAKING LASIX (FUROSEMIDE) 11/27/2017 No Stop Date Active potassium chloride ER 10 mEq capsule,extended release RxNorm: 548922 Capsule(s) TAKE 1 CAPSULE BY MOUTH TWICE DAILY WHEN TAKING LASIX (FUROSEMIDE) 11/27/2017 11/26/2017 Inactive fentanyl 25 mcg/hr transdermal patch RxNorm: 911520 1 Patch TD Q72H use with 100mcg patch for a total of 125mcg daily 11/27/2017 12/26/2017 Inactive bumetanide 0.5 mg tablet RxNorm: 643025 1 Tablet(s) PO daily 12/23/2017 Inactive in the afternoon x 3 days then as needed per Dr Silva fentanyl 100 mcg/hr transdermal patch RxNorm: 780161 1 Patch TD Q72H use with 25mcg/hr patch 11/27/2017 12/26/2017 Inactive Lasix 20 mg tablet RxNorm: 752186 TAKE 1 TABLET BY MOUTH TWICE DAILY 10/29/2017 No Stop Date Active oxycodone 30 mg tablet RxNorm: 5246763 1/2 Tablet(s) PO Q6 12/27/2017 Inactive fentanyl 100 mcg/hr transdermal patch RxNorm: 600023 1 Patch TD Q72H use with 25mcg/hr patch 10/29/2017 11/26/2017 Inactive fentanyl 25 mcg/hr transdermal patch RxNorm: 952723 1 Patch TD Q72H use with 100mcg patch for a total of 125mcg daily 10/29/2017 11/26/2017 Inactive pantoprazole 40 mg tablet,delayed release RxNorm: 824427 Tablet(s) Take 1 tablet by mouth daily 10/21/2017 04/18/2018 Active - Ref: [id number] potassium chloride ER 10 mEq capsule,extended release RxNorm: 045651 TAKE 1 CAPSULE BY MOUTH TWICE DAILY WHEN TAKING LASIX (FUROSEMIDE) 10/09/2017 11/26/2017 Inactive fentanyl 25 mcg/hr transdermal patch RxNorm: 479065 1 Patch TD Q72H use with 100mcg patch for a total of 125mcg daily 10/01/2017 10/28/2017 Inactive fentanyl 100 mcg/hr transdermal patch RxNorm: 061764 1 Patch TD Q72H use with 25mcg/hr patch 10/01/2017 10/28/2017 Inactive potassium chloride ER 10 mEq tablet,extended release(part/ cryst) RxNorm: 6319010 1 Capsule(s) PO BID when taking lasix 09/22/2017 01/04/2018 Inactive fentanyl 100 mcg/hr transdermal patch RxNorm: 851118 1 Patch TD Q72H use with 25mcg/hr patch 08/31/2017 09/29/2017 Inactive Kenalog 40 mg/mL suspension for injection RxNorm: 1355377 1 Milliliter(s) Inj 08/31/2017 08/31/2017 Inactive fentanyl 25 mcg/hr transdermal patch RxNorm: 602478 1 Patch TD Q72H use with 100mcg patch for a total of 125mcg daily 08/31/2017 09/29/2017 Inactive oxycodone 30 mg tablet RxNorm: 1779541 1/2 Tablet(s) PO Q6 04/201710/28/2017 Inactive cyanocobalamin (vit B-12) 1,000 mcg/mL injection solution RxNorm: 900101 1 Milliliter(s) Inj monthly 08/21/201708/15 Active please provide her with syringe/needle for injection cyanocobalamin (vit B-12) 1,000 mcg/mL injection solution RxNorm: 278399 1 Milliliter(s) Inj monthly 08/21/201708/20 Inactive please provide her with syringe/needle for injection Kenalog 40 mg/mL suspension for injection RxNorm: 9244462 2 Milliliter(s) Inj 1mL in each shoulder 08/21/2017 08/21/2017 Inactive cyanocobalamin (vit B-12) 1,000 mcg/mL injection solution RxNorm: 952039 1 Milliliter(s) Inj monthly 08/21/201708/20 Inactive please provide her with syringe/needle for injection Kenalog 40 mg/mL suspension for injection RxNorm: 6280449 2 Milliliter(s) Inj UD 08/12/2017 08/12/2017 Inactive fentanyl 25 mcg/hr transdermal patch RxNorm: 040855 1 Patch TD Q72H use with 100mcg patch for a total of 125mcg daily 08/05/2017 08/30/2017 Inactive fentanyl 100 mcg/hr transdermal patch RxNorm: 306636 1 Patch TD Q72H use with 25mcg/hr patch 08/05/2017 08/30/2017 Inactive Kenalog 40 mg/mL suspension for injection RxNorm: 4394231 2 Milliliter(s) Inj 1mL per shoulder 08/05/2017 08/05/2017 Inactive clindamycin HCl 150 mg capsule RxNorm: 725634 1 Capsule(s) PO QID Dr Shultz prescribed 07/23/2017 07/29/2017 Inactive prednisone 5 mg tablet RxNorm: 587853 1 Tablet(s) PO daily 11/201707/03/2018 Active fentanyl 25 mcg/hr transdermal patch RxNorm: 483564 1 Patch TD Q72H use with 100mcg patch for a total of 125mcg daily 07/01/2017 07/30/2017 Inactive Lasix 20 mg tablet RxNorm: 830820 1 Tablet(s) PO BID 201710/28/2017 Inactive fentanyl 100 mcg/hr transdermal patch RxNorm: 157847 1 Patch TD Q72H use with 25mcg/hr patch 07/01/2017 07/30/2017 Inactive potassium chloride ER 10 mEq capsule,extended release RxNorm: 643614 1 Capsule(s) PO BID when taking lasix 07/01/20172017 Inactive oxycodone 30 mg tablet RxNorm: 8805442 1/2 Tablet(s) PO Q6 08/22/2017 Inactive fentanyl 100 mcg/hr transdermal patch RxNorm: 375798 1 Patch TD Q72H use with 25mcg/hr patch 05/07/2017 06/05/2017 Inactive fentanyl 25 mcg/hr transdermal patch RxNorm: 386424 1 Patch TD Q72H use with 100mcg patch for a total of 125mcg daily 05/07/2017 06/05/2017 Inactive fentanyl 100 mcg/hr transdermal patch RxNorm: 689473 1 Patch TD Q72H 04/08/2017 05/06/2017 Inactive fentanyl 25 mcg/hr transdermal patch RxNorm: 127708 1 Patch TD Q72H use with 100mcg patch for a total of 125mcg daily 04/08/2017 05/06/2017 Inactive Kenalog 40 mg/mL suspension for injection RxNorm: 5746304 1.5 Milliliter(s) Inj 04/02/2017 04/02/2017 Inactive fentanyl 100 mcg/hr transdermal patch RxNorm: 334991 1 Patch TD Q72H 03/12/2017 04/07/2017 Inactive fentanyl 25 mcg/hr transdermal patch RxNorm: 059389 1 Patch TD Q72H use with 100mcg patch for a total of 125mcg daily 03/12/2017 04/07/2017 Inactive oxycodone 30 mg tablet RxNorm: 6920249 1/2 Tablet(s) PO Q6 09/201704/07/2017 Inactive cyanocobalamin (vit B-12) 1,000 mcg/mL injection syringe RxNorm: 517841 1 Milliliter(s) Inj monthly 02/16/2017 No Stop Date Active please provide with supplys needed for injection fentanyl 100 mcg/hr transdermal patch RxNorm: 920710 1 Patch TD Q72H 02/06/2017 03/07/2017 Inactive Myrbetriq 50 mg tablet,extended release RxNorm: 1003413 1 Tablet(s) PO QPM 12/11/2016 07/22/2017 Inactive oxycodone 30 mg tablet RxNorm: 4285260 1/2 Tablet(s) PO Q6 10/201601/06/2017 Inactive naproxen 500 mg tablet RxNorm: 771228 1 Tablet(s) PO BID Take 1 tablet by mouth two times daily as needed 12/08/201607/08 Inactive - First Attempt Ref: [id number] Myrbetriq 50 mg tablet,extended release RxNorm: 1345033 1 Tablet(s) PO QPM 11/17/2016 12/10/2016 Inactive fentanyl 100 mcg/hr transdermal patch RxNorm: 239060 1 Patch TD Q72H 11/12/2016 12/11/2016 Inactive Vesicare 10 mg tablet RxNorm: 568492 1 Tablet(s) PO QPM 201611/18/2016 Inactive oxycodone 10 mg tablet RxNorm: 9902334 1-2 Tablet(s) PO Q4 PRN as needed to take between 30mg dose if needed for extra pain control 201612/07/2016 Inactive fentanyl 75 mcg/hr transdermal patch RxNorm: 822456 1 TD Q72H 10/22/2016 11/10/2016 Inactive oxycodone 10 mg tablet RxNorm: 4408075 1-2 Tablet(s) PO Q4 PRN as needed to take between 30mg dose if needed for extra pain control 201611/04/2016 Inactive Kenalog 40 mg/mL suspension for injection RxNorm: 4296901 1 Milliliter(s) Inj 10/02/2016 10/02/2016 Inactive Kenalog 40 mg/mL suspension for injection RxNorm: 8986930 1 Milliliter(s) Inj 09/12/2016 09/12/2016 Inactive cyclobenzaprine 5 mg tablet RxNorm: 452229 1 Tablet(s) PO Q8 as needed muscle spasms 09/11/2016 07/22/2017 Inactive prednisone 10 mg tablets in a dose pack RxNorm: 968665 1 Tablet(s) PO UD 09/09/2016 06/23/2017 Inactive potassium chloride ER 10 mEq capsule,extended release RxNorm: 332294 1 Capsule(s) PO BID as needed when taking lasix 08/26/2016 06/30/2017 Inactive Lasix 20 mg tablet RxNorm: 813396 1 Tablet(s) PO BID daily x 10 days then as needed edema 08/26/2016 12/23/2016 Inactive naproxen 500 mg tablet RxNorm: 668140 Take 1 tablet by mouth two times daily as needed 08/18/2016 11/15/2016 Inactive - First Attempt Ref: [id number] Lasix 20 mg tablet RxNorm: 890265 1 Tablet(s) PO QAM daily x 10 days then as needed edema 08/18/2016 08/25/2016 Inactive Vesicare 5 mg tablet RxNorm: 756562 1 Tablet(s) PO QPM 201611/04/2016 Inactive potassium chloride ER 10 mEq capsule,extended release RxNorm: 273744 1 Capsule(s) PO QAM as needed when taking lasix 08/18/2016 08/25/2016 Inactive Myrbetriq 25 mg tablet,extended release RxNorm: 5083185 1 Tablet(s) PO QHS 07/14/2016 07/29/2016 Inactive pantoprazole 40 mg tablet,delayed release RxNorm: 382419 Take 1 tablet by mouth daily 06/30/2016 12/26/2016 Inactive - Ref: [id number] Embeda 20 mg-0.8 mg capsule, extend release, oral only RxNorm: 267461 1 Capsule(s ) PO daily 06/04/2016 06/03/2016 Inactive Embeda 20 mg-0.8 mg capsule, extend release, oral only RxNorm: 918542 1 Capsule(s ) PO daily 06/04/2016 07/01/2016 Inactive oxycodone 10 mg tablet RxNorm: 1240542 1 Tablet(s) PO QID as needed to take between 30mg dose if needed for extra pain control 201606/10/2016 Inactive oxycodone 30 mg tablet RxNorm: 5148794 1 Tablet(s) PO Q6 201611/04/2016 Inactive cyanocobalamin (vit B-12) 1,000 mcg/mL injection solution RxNorm: 410255 1 Milliliter(s) Inj monthly 02/22/201602/15 Inactive she also needs syringes/ needles for this solution QS oxycodone 30 mg tablet RxNorm: 8908157 1 Tablet(s) PO Q6 201503/19/2016 Inactive oxycodone 10 mg tablet RxNorm: 5157069 1 Tablet(s) PO QID as needed to take between 30mg dose if needed for extra pain control 201503/19/2016 Inactive oxycodone 10 mg tablet RxNorm: 1030397 1 Tablet(s) PO QID as needed to take between 30mg dose if needed for extra pain control 201502/18/2016 Inactive oxycodone 30 mg tablet RxNorm: 3617538 1 Tablet(s) PO Q6 201502/18/2016 Inactive pantoprazole 40 mg tablet,delayed release RxNorm: 348861 Take 1 tablet by mouth daily 01/22/2016 06/29/2016 Inactive - First Attempt Ref: [id number] oxycodone 30 mg tablet RxNorm: 0437297 1 Tablet(s) PO Q6 201501/28/2016 Inactive oxycodone 10 mg tablet RxNorm: 9166532 1 Tablet(s) PO QID as needed take between 20mg dose if needed for extra pain control 11/07/2015 12/06/2015 Inactive oxycodone 20 mg tablet RxNorm: 0479450 1 Tablet(s) PO Q6 as needed 11/07/2015 12/31/2015 Inactive doxycycline hyclate 100 mg tablet RxNorm: 793157 1 Tablet(s) PO BID 11/01/2015 11/10/2015 Inactive potassium chloride ER 10 mEq capsule,extended release RxNorm: 102582 1 Capsule(s) PO TIW as needed when taking lasix 09/04/2015 08/17/2016 Inactive Voltaren 1 % topical gel RxNorm: 044390 2 Gram(s) TOP QID 08/2909/03/2015 Inactive pa approved Voltaren 1 % topical gel RxNorm: 125283 2 Gram(s) TOP QID 08/0808/29/2015 Inactive naproxen 500 mg tablet RxNorm: 983870 1 Tablet(s) PO BID 201508/17/2016 Inactive naproxen 500 mg tablet RxNorm: 443676 1 Tablet(s) PO BID 201508/08/2015 Inactive doxycycline hyclate 100 mg tablet RxNorm: 513914 1 Tablet(s) PO BID do not take calcium/vitamin d while on antibiotic 07/18/2015 07/31/2015 Inactive Vitamin D2 50,000 unit capsule RxNorm: 673043 1 Capsule(s) PO QW 07/02/2015 11/18/2015 Inactive Premarin 0.3 mg tablet RxNorm: 783252 1 Tablet(s) PO daily 12/201505/09/2015 Inactive Premarin 0.3 mg tablet RxNorm: 942115 1 Tablet(s) PO daily 12/201503/17/2016 Inactive simvastatin 40 mg tablet RxNorm: 297991 1 Tablet(s) PO daily 03/17/2016 Inactive spironolactone 25 mg tablet RxNorm: 114101 TAKE ONE TABLET BY MOUTH DAILY 05/07/2015 05/27/2016 Inactive potassium chloride ER 10 mEq capsule,extended release RxNorm: 145512 1 Capsule(s) PO TIW as needed when taking lasix 04/17/2015 09/03/2015 Inactive alendronate 70 mg tablet RxNorm: 193090 1 Tablet(s) PO weekly QW 04/17/2015 07/01/2015 Inactive Vitamin D2 50,000 unit capsule RxNorm: 013641 1 Capsule(s) PO QW 03/30/2015 06/27/2015 Inactive Vitamin D2 50,000 unit capsule RxNorm: 464471 1 Capsule(s) PO QW 03/21/2015 03/29/2015 Inactive cyanocobalamin (vit B-12) 1,000 mcg/mL injection solution RxNorm: 623910 1 Milliliter(s) Inj monthly 03/19/201502/20 Inactive cyanocobalamin (vit B-12) 1,000 mcg/mL injection solution RxNorm: 556212 1 Milliliter(s) Inj monthly 03/16/201503/18 Inactive cyanocobalamin (vit B-12) 1,000 mcg/mL injection solution RxNorm: 815194 1 Milliliter(s) Inj monthly 03/16/201503/15 Inactive pantoprazole 40 mg tablet,delayed release RxNorm: 738538 1 Tablet(s) PO daily 03/05/2015 01/21/2016 Inactive Lasix 20 mg tablet RxNorm: 630027 1 Tablet(s) PO TIW as needed edema 02/08/2015 02/02/2016 Inactive oxycodone 10 mg tablet RxNorm: 0602355 1 Tablet(s) PO QID as needed take between 20mg dose if needed for extra pain control 11/09/2014 12/08/2014 Inactive oxycodone 20 mg tablet RxNorm: 9504507 1 Tablet(s) PO Q6 as needed 10/25/2014 11/06/2015 Inactive doxycycline hyclate 100 mg tablet RxNorm: 333628 1 Tablet(s) PO BID 10/23/2014 11/19/2014 Inactive Cipro 500 mg tablet RxNorm: 567538 1 Tablet(s) PO BID 201410/16/2014 Inactive Cipro 500 mg tablet RxNorm: 756331 1 Tablet(s) PO BID 201410/09/2014 Inactive oxycodone 20 mg tablet RxNorm: 7045098 1 Tablet(s) PO Q6 as needed 09/25/2014 10/24/2014 Inactive Lasix 20 mg tablet RxNorm: 605903 1 Tablet(s) PO TIW as needed edema 09/14/2014 01/11/2015 Inactive potassium chloride ER 10 mEq capsule,extended release RxNorm: 886231 1 Capsule(s) PO TIW as needed when taking lasix 09/14/2014 01/11/2015 Inactive doxycycline hyclate 100 mg tablet RxNorm: 520467 1 Tablet(s) PO BID 09/05/2014 09/14/2014 Inactive doxycycline hyclate 100 mg tablet RxNorm: 294101 1 Tablet(s) PO BID 09/05/2014 09/04/2014 Inactive oxycodone 20 mg tablet RxNorm: 9801729 1 Tablet(s) PO Q6 as needed 08/29/2014 09/24/2014 Inactive spironolactone 25 mg tablet RxNorm: 149180 1 Tablet(s) PO daily 08/11/2014 03/08/2015 Inactive oxycodone 20 mg tablet RxNorm: 5696790 1 Tablet(s) PO Q6 as needed 08/02/2014 08/28/2014 Inactive Vitamin D3 2,000 unit tablet RxNorm: 493179 1 Tablet(s) PO daily 07/14/2014 No Stop Date Active Vitamin D2 50,000 unit capsule RxNorm: 525417 1 Capsule(s) PO QW 07/14/2014 10/11/2014 Inactive Vitamin D2 50,000 unit capsule RxNorm: 538954 1 Capsule(s) PO QW 07/14/2014 07/13/2014 Inactive Prolia 60 mg/mL subcutaneous syringe RxNorm: 307971 Milliliter(s) SQ EVERY 6 MONTHS No Start Date Active Carafate 1 gram tablet RxNorm: 736848 1 Tablet(s) PO BID No Start Date Active Miralax oral RxNorm: 481650 oral No Start Date Active Stool Softener oral RxNorm: 80175 oral No Start Date Active Calcium + Vitamin D oral RxNorm: 4018 oral No Start Date Active naproxen 500 mg tablet RxNorm: 500638 1 Tablet(s) PO BID No Start Date 08/05/2015 Inactive oxycodone 20 mg tablet RxNorm: 7936054 1 Tablet(s) PO Q6 as needed No Start Date 08/01/2014 Inactive aspirin 81 mg tablet RxNorm: 384036 1 Tablet(s) PO daily No Start Date 07/22/2017 Inactive simvastatin 40 mg tablet RxNorm: 593851 1 Tablet(s) PO daily No Start Date 05/09/2015 Inactive cyanocobalamin (vit B-12) 1,000 mcg/mL injection syringe RxNorm: 100498 1 Inj monthly No Start Date 02/15/2017 Inactive Reglan 10 mg tablet RxNorm: 455606 1 Tablet(s) PO as needed No Start Date 07/29/2016 Inactive alendronate 70 mg tablet RxNorm: 560855 1 Tablet(s) PO weekly No Start Date 04/16/2015 Inactive Protonix 40 mg tablet,delayed release RxNorm: 357333 1 Tablet(s) PO daily No Start Date 03/04/2015 Inactive cyclobenzaprine 5 mg tablet RxNorm: 485813 1 Tablet(s) PO Q8 as needed muscle spasms No Start Date 09/10/2016 Inactive Vitamin D3 1,000 unit capsule RxNorm: 099836 1 Capsule(s) PO daily No Start Date 07/13/2014 Inactive Cardizem CD 360 mg capsule,extended release RxNorm: 362754 1 Capsule(s) PO daily No Start Date 01/04/2018 Inactive prednisone 10 mg tablets in a dose pack RxNorm: 778339 1 Tablet(s) PO UD No Start Date 09/08/2016 Inactive Medication Administered Medication Codes Instructions Start Date Status Kenalog 40 mg/mL suspension for injection RxNorm: 4130115 1Milliliter 08/31/2017 No longer Active Kenalog 40 mg/mL suspension for injection RxNorm: 3317453 2Milliliter 08/21/2017 No longer Active Kenalog 40 mg/mL suspension for injection RxNorm: 9798175 2MilliliterUD 08/12/2017 No longer Active Kenalog 40 mg/mL suspension for injection RxNorm: 4932107 2Milliliter 08/05/2017 No longer Active Kenalog 40 mg/mL suspension for injection RxNorm: 2361222 1.5Milliliter 04/02/2017 No longer Active Kenalog 40 mg/mL suspension for injection RxNorm: 9834762 1Milliliter 10/02/2016 No longer Active Kenalog 40 mg/mL suspension for injection RxNorm: 9378631 1Milliliter 09/12/2016 No longer Active Immunizations Vaccine Codes Date Status Influenza CVX: 141 12/03/2017 completed Influenza CVX: 141 12/08/2016 completed Influenza CVX: 141 11/19/2015 completed Influenza CVX: 141 01/10/2015 completed Pneumococcal (Adult) CVX: 133 12/11/2014 completed Pneumococcal (Adult) CVX: 133 12/11/2014 completed Assessments Condition Codes Effective Dates Essential (primary) hypertension ICD-10: I10 ICD-9: 401.1 12/24/2017 Chronic pain syndrome ICD-10: G89.4 ICD-9: 338.4 12/24/2017 Generalized edema ICD-10: R60.1 ICD-9: 782.3 12/24/2017 Lymphedema, not elsewhere classified ICD-10: I89.0 ICD-9: 457.1 11/30/2017 Pain in left shoulder ICD-10: M25.512 ICD-9: [...] Visit Reason For Visit Effective Dates Notes Hospital Follow Up 12/24/2017 rheumatoid arthritis 11/30/2017 [...] Tibc Ord40 Fe-%Sat 21.7 % 10/22/2017 Prealbumin 288521 PREALBUMIN 33 mg/dL 10/21/2017 Comp Metabolic Qxl222 NA 134 mEq/L 10/20/2017 Comp Metabolic Roq220 K 3.7 mEq/L 10/20/2017 Comp Metabolic Qfo553 CL 93 mEq/L 10/20/2017 Comp Metabolic Uso267 CO2 29.0 mEq/L 10/20/2017 Comp Metabolic Fwz141 ANION GAP 16 10/20/2017 Comp Metabolic Usk687 GLUCOSE 115 mg/dL 10/20/2017 Comp Metabolic Qil018 Creat 0.8 mg/dL 10/20/2017 Comp Metabolic Uwj043 eGFR 73 ml/min/1.73m2 10/20/2017 Comp Metabolic Ehi628 BUN 46 mg/dL 10/20/2017 Comp Metabolic Yrj393 B/C Ratio 57.5 Ratio 10/20/2017 Comp Metabolic Jtp136 CALCIUM 8.7 mg/dL 10/20/2017 Comp Metabolic Ibo384 ALK PHOS 56 U/L 10/20/2017 Comp Metabolic Iwp251 AST(SGOT) 19 U/L 10/20/2017 Comp Metabolic Xbp749 ALT(SGPT) 23 U/L 10/20/2017 Comp Metabolic Tdf721 BILI T 0.6 mg/dL 10/20/2017 Comp Metabolic Eie994 ALBUMIN 4.0 g/dL 10/20/2017 Comp Metabolic Oqv553 TPRO 6.6 g/dL 10/20/2017 Comp Metabolic Qye789 GLOB 2.7 g/dL 10/20/2017 Comp Metabolic Flv061 A/G Ratio 1.5 Ratio 10/20/2017 Comp Metabolic Sry986 Osmo 281 mOsmo 10/20/2017 Tsh Ord6 TSH [...] 18.4 % 10/20/2017 Cbc With Differential Ord2 [place]% 9.9 % 10/20/2017 Cbc With Differential Ord2 [...] 1.15 K/ul 10/20/2017 Cbc With Differential Ord2 [place] ABS# 0.6 K/ul 10/20/2017 Cbc With Differential Ord2 Eos ABS# 0.0 K/ul 10/20/2017 Cbc With Differential Ord2 Baso ABS# 0.0 K/ul 10/20/2017 Iron Ord72 Iron 75 ug/dl 10/20/2017 Luann Reflex Profile [id number] LUANN (BRYANNA) SCREEN NONE DETECTED 01/12/2017 Comp Metabolic Nag370 NA 129 mEq/L 01/08/2017 Comp Metabolic Roh233 K 3.9 mEq/L 01/08/2017 Comp Metabolic Mhc727 CL 94 mEq/L 01/08/2017 Comp Metabolic Omd795 CO2 31.0 mEq/L 01/08/2017 Comp Metabolic Nwc074 ANION GAP 8 01/08/2017 Comp Metabolic Ufa986 GLUCOSE 103 mg/dL 01/08/2017 Comp Metabolic Dcg570 Creat 0.9 mg/dL 01/08/2017 Comp Metabolic Hcd817 eGFR 61 ml/min/1.73m2 01/08/2017 Comp Metabolic Tqn620 BUN 29 mg/dL 01/08/2017 Comp Metabolic Pxy875 B/C Ratio 30.9 Ratio 01/08/2017 Comp Metabolic Kwa341 CALCIUM 8.5 mg/dL 01/08/2017 Comp Metabolic Hkm234 ALK PHOS 58 U/L 01/08/2017 Comp Metabolic Pxx013 AST(SGOT) 17 U/L 01/08/2017 Comp Metabolic Fck014 ALT(SGPT) 10 U/L 01/08/2017 Comp Metabolic Cbh324 BILI T 0.4 mg/dL 01/08/2017 Comp Metabolic Yny796 ALBUMIN 3.0 g/dL 01/08/2017 Comp Metabolic Nyj955 TPRO 5.5 g/dL 01/08/2017 Comp Metabolic Imk653 GLOB 2.5 g/dL 01/08/2017 Comp Metabolic Mcv489 A/G Ratio 1.2 Ratio 01/08/2017 Comp Metabolic Rjs157 Osmo 265 mOsmo 01/08/2017 Cbc With Differential [...] 102.2 fl 01/08/2017 Cbc With Differential Ord2 [place]% 12.2 % 01/08/2017 Cbc With Differential Ord2 [...] 1.62 K/ul 01/08/2017 Cbc With Differential Ord2 [place] ABS# 0.9 K/ul 01/08/2017 Cbc With Differential [...] 33.1 pg 11/10/2016 Cbc With Differential Ord2 [place]% 9.1 % 11/10/2016 Cbc With Differential Ord2 [...] 0.78 K/ul 11/10/2016 Cbc With Differential Ord2 [place] ABS# 0.5 K/ul 11/10/2016 Cbc With Differential [...] 30.3 pg 10/07/2016 Cbc With Differential Ord2 [place]% 11.8 % 10/07/2016 Cbc With Differential Ord2 [...] 1.54 K/ul 10/07/2016 Cbc With Differential Ord2 [place] ABS# 1.0 K/ul 10/07/2016 Cbc With Differential Ord2 Eos ABS# 0.1 K/ul 10/07/2016 Cbc With Differential Ord2 Baso ABS# 0.0 K/ul 10/07/2016 Tibc Ord40 Iron 13 ug/dl 08/26/2016 Tibc Ord40 UIBC 283 ug/dL 08/26/2016 Tibc Ord40 TIBC 296 ug/dL 08/26/2016 Tibc Ord40 Fe-%Sat 4.4 % 08/26/2016 Ferritin Ord22 FERRITIN 28.8 ng/mL 08/26/2016 Comp Metabolic Ewz136 NA 129 mEq/L 08/26/2016 Comp Metabolic Dhc636 K 3.9 mEq/L 08/26/2016 Comp Metabolic Wyt973 CL 93 mEq/L 08/26/2016 Comp Metabolic Owh720 CO2 30.0 mEq/L 08/26/2016 Comp Metabolic Nfr493 ANION GAP 10 08/26/2016 Comp Metabolic Hcw664 GLUCOSE 87 mg/dL 08/26/2016 Comp Metabolic Wpv791 Creat 0.6 mg/dL 08/26/2016 Comp Metabolic Abv109 eGFR 96 ml/min/1.73m2 08/26/2016 Comp Metabolic Daa354 BUN 17 mg/dL 08/26/2016 Comp Metabolic Wzb018 B/C Ratio 27.0 Ratio 08/26/2016 Comp Metabolic Hlm469 CALCIUM 7.6 mg/dL 08/26/2016 Comp Metabolic Svq041 ALK PHOS 72 U/L 08/26/2016 Comp Metabolic Unw227 AST(SGOT) 20 U/L 08/26/2016 Comp Metabolic Ioy610 ALT(SGPT) 12 U/L 08/26/2016 Comp Metabolic Zkc319 BILI T 0.3 mg/dL 08/26/2016 Comp Metabolic Qxi177 ALBUMIN 2.7 g/dL 08/26/2016 Comp Metabolic Rcj448 TPRO 5.3 g/dL 08/26/2016 Comp Metabolic Efn509 GLOB 2.6 g/dL 08/26/2016 Comp Metabolic Faj684 A/G Ratio 1.1 Ratio 08/26/2016 Comp Metabolic Rvj382 Osmo 260 mOsmo 08/26/2016 Cbc With Differential [...] 88.7 fl 08/26/2016 Cbc With Differential Ord2 [place]% 9.6 % 08/26/2016 Cbc With Differential Ord2 [...] 1.83 K/ul 08/26/2016 Cbc With Differential Ord2 [place] ABS# 1.0 K/ul 08/26/2016 Cbc With Differential Ord2 Eos ABS# 0.1 K/ul 08/26/2016 Cbc With Differential Ord2 Baso ABS# 0.0 K/ul 08/26/2016 Magnesium Ord90 Mag 1.9 mg/dL 08/26/2016 Vitamin D 25 Oh Sea2620 VITAMIN D, 25 HYDROXY 34.59 ng/mL Sed Rate Ord21 ESR 20 mm/hr 11/19/2015 Comp Metabolic Wgm572 NA 131 mEq/L 08/22/2015 Comp Metabolic Rky872 K 4.2 mEq/L 08/22/2015 Comp Metabolic Llm922 CL 98 mEq/L 08/22/2015 Comp Metabolic Vap426 CO2 27.0 mEq/L 08/22/2015 Comp Metabolic Ker717 ANION GAP 10 08/22/2015 Comp Metabolic Los979 GLUCOSE 80 mg/dL 08/22/2015 Comp Metabolic Nxy080 Creat 0.5 mg/dL 08/22/2015 Comp Metabolic Hbw936 eGFR 120 ml/min/1.73m2 08/22/2015 Comp Metabolic Ukt591 BUN 13 mg/dL 08/22/2015 Comp Metabolic Vdy738 B/C Ratio 25.0 Ratio 08/22/2015 Comp Metabolic Iog716 CALCIUM 8.2 mg/dL 08/22/2015 Comp Metabolic Grg492 ALK PHOS 49 U/L 08/22/2015 Comp Metabolic Qyf139 AST(SGOT) 18 U/L 08/22/2015 Comp Metabolic Wal990 ALT(SGPT) 11 U/L 08/22/2015 Comp Metabolic Idt124 BILI T 0.5 mg/dL 08/22/2015 Comp Metabolic Pol018 ALBUMIN 3.5 g/dL 08/22/2015 Comp Metabolic Jvk172 TPRO 6.2 g/dL 08/22/2015 Comp Metabolic Aes206 GLOB 2.7 g/dL 08/22/2015 Comp Metabolic Hbx184 A/G Ratio 1.3 Ratio 08/22/2015 Comp Metabolic Aqz721 Osmo 262 mOsmo 08/22/2015 Cbc With Differential [...] 21.4 % 08/22/2015 Cbc With Differential Ord2 [place]% 10.3 % 08/22/2015 Cbc With Differential Ord2 [...] 1.39 K/ul 08/22/2015 Cbc With Differential Ord2 [place] ABS# 0.7 K/ul 08/22/2015 Cbc With Differential Ord2 Eos ABS# 0.1 K/ul 08/22/2015 Cbc With Differential Ord2 Baso ABS# 0.0 K/ul 08/22/2015 Tsh Ord6 hTSH II 2.19 uIU/mL 08/22/2015 Vitamin D 25 Oh Hyk7255 VITAMIN D, 25 HYDROXY 55.10 ng/mL Lipid [...] 1.5 Ratio 03/16/2015 Vitamin D 25 Oh Nql8467 VITAMIN D, 25 HYDROXY 28.94 ng/mL Cbc With Differential Ord2 WBC 7.41 K/ul 03/16/2015 Cbc With Differential Ord2 RBC 3.45 M/ul 03/16/2015 Cbc With Differential Ord2 HGB 9.7 g/dl 03/16/2015 Cbc With Differential Ord2 HCT 30.4 % 03/16/2015 Cbc With Differential Ord2 Neut% 55.2 % 03/16/2015 Cbc With Differential Ord2 MCV 88.1 fl 03/16/2015 Cbc With Differential Ord2 Lymph% 32.0 % 03/16/2015 Cbc With Differential Ord2 [place]% 11.2 % 03/16/2015 Cbc With Differential Ord2 MCH 28.1 pg 03/16/2015 Cbc With Differential Ord2 Eos% 1.2 % 03/16/2015 Cbc With Differential Ord2 MCHC 31.9 pg 03/16/2015 Cbc With Differential Ord2 PLT 346 K/ul 03/16/2015 Cbc With Differential Ord2 Baso% 0.4 % 03/16/2015 Cbc With Differential Ord2 Neut ABS# 4.09 K/ul 03/16/2015 Cbc With Differential Ord2 RDW 13.2 % 03/16/2015 Cbc With Differential Ord2 Lymph ABS# 2.37 K/ul 03/16/2015 Cbc With Differential Ord2 [place] ABS# 0.8 K/ul 03/16/2015 Cbc With Differential Ord2 Eos ABS# 0.1 K/ul 03/16/2015 Cbc With Differential Ord2 Baso ABS# 0.0 K/ul 03/16/2015 Cbc With Differential Ord2 New Analyzer Notice Please note new ref ranges starting 03-14-2015 due to implemntation of new five part differential hematolgy analyzer. 03/16/2015 Comp Metabolic Vqd303 NA 131 mEq/L 03/16/2015 Comp Metabolic Rfy276 K 4.1 mEq/L 03/16/2015 Comp Metabolic Mld082 CL 94 mEq/L 03/16/2015 Comp Metabolic Dyf179 CO2 28.0 mEq/L 03/16/2015 Comp Metabolic Uav488 ANION GAP 13 03/16/2015 Comp Metabolic Hex615 GLUCOSE 96 mg/dL 03/16/2015 Comp Metabolic Ohh392 Creat 0.7 mg/dL 03/16/2015 Comp Metabolic Zly447 eGFR 80 ml/min/1.73m2 03/16/2015 Comp Metabolic Khb566 BUN 16 mg/dL 03/16/2015 Comp Metabolic Lxq058 B/C Ratio 21.6 Ratio 03/16/2015 Comp Metabolic Emz787 CALCIUM 8.9 mg/dL 03/16/2015 Comp Metabolic Ztv717 ALK PHOS 44 U/L 03/16/2015 Comp Metabolic Uok776 AST(SGOT) 22 U/L 03/16/2015 Comp Metabolic Rnh556 ALT(SGPT) 14 U/L 03/16/2015 Comp Metabolic Yfk358 BILI T 0.5 mg/dL 03/16/2015 Comp Metabolic Prq643 ALBUMIN 3.4 g/dL 03/16/2015 Comp Metabolic Fkr442 TPRO 6.0 g/dL 03/16/2015 Comp Metabolic Rpa132 GLOB 2.6 g/dL 03/16/2015 Comp Metabolic Ozk294 A/G Ratio 1.3 Ratio 03/16/2015 Comp Metabolic Ueu770 Osmo 264 mOsmo 03/16/2015 Comp Metabolic Ysp155 NA 129 mEq/L 11/09/2014 Comp Metabolic Cux947 K 4.2 mEq/L 11/09/2014 Comp Metabolic Gqz455 CL 96 mEq/L 11/09/2014 Comp Metabolic Cnd137 CO2 27.0 mEq/L 11/09/2014 Comp Metabolic Yio630 ANION GAP 10 11/09/2014 Comp Metabolic Wfu576 GLUCOSE 144 mg/dL 11/09/2014 Comp Metabolic Pnk808 Creat 0.8 mg/dL 11/09/2014 Comp Metabolic Wpu587 eGFR 73 ml/min/1.73m2 11/09/2014 Comp Metabolic Jcw969 BUN 22 mg/dL 11/09/2014 Comp Metabolic Pvk748 B/C Ratio 27.5 Ratio 11/09/2014 Comp Metabolic Hmp557 CALCIUM 8.6 mg/dL 11/09/2014 Comp Metabolic Drm771 ALK PHOS 55 U/L 11/09/2014 Comp Metabolic Rlz947 AST(SGOT) 27 U/L 11/09/2014 Comp Metabolic Upr931 ALT(SGPT) 18 U/L 11/09/2014 Comp Metabolic Icg410 BILI T 0.5 mg/dL 11/09/2014 Comp Metabolic Fya986 ALBUMIN 3.0 g/dL 11/09/2014 Comp Metabolic Tnj024 TPRO 5.4 g/dL 11/09/2014 Comp Metabolic Dgh350 GLOB 2.4 g/dL 11/09/2014 Comp Metabolic Fol967 A/G Ratio 1.3 Ratio 11/09/2014 Comp Metabolic Wbo776 Osmo 265 mOsmo 11/09/2014 Magnesium Ord90 Mag [...] General 1994 Cardiovascular extremities Edema present: bilateral 11/30/2017 None [...] impaction 11/17/2016 None Full Exam - General 1995 Ears/Nose/Throat lips/teeth/gingiva Overall: benign lips 11/17/2016 None [...] benign 11/17/2016 None Full Exam - General 1995 Ears/Nose/Throat oral cavity/pharynx/larynx Overall: no masses 11/17/2016 [...] Procedures Procedure Codes Date DRAIN/INJECT JOINT/BURSA CPT-4: 45994 08/21/2017 DRAIN/INJECT JOINT/BURSA CPT-4: 00239 08/12/2017 TRIAMCINOLONE ACET INJ NOS CPT-4: J3301 08/12/2017 DRAIN/INJECT JOINT/BURSA CPT-4: 48366 08/05/2017 TRIAMCINOLONE ACET INJ NOS CPT-4: J3301 08/05/2017 DRAIN/INJECT JOINT/BURSA CPT-4: 00374 07/23/2017 DRAIN/INJECT JOINT/BURSA CPT-4: 11619 07/09/2017 TRIAMCINOLONE ACET INJ NOS CPT-4: J3301 07/09/2017 PRESCRIP TRANSMIT VIA ERX SY CPT-4: G8553 07/09/2017 DRAIN/INJECT JOINT/BURSA CPT-4: 19370 07/01/2017 TRIAMCINOLONE ACET INJ NOS CPT-4: J3301 07/01/2017 PRESCRIP TRANSMIT VIA ERX SY CPT-4: G8553 07/01/2017 DRAIN/INJECT JOINT/BURSA CPT-4: 59030 06/17/2017 DRAIN/INJECT JOINT/BURSA CPT-4: 07276 04/02/2017 TRIAMCINOLONE ACET INJ NOS CPT-4: J3301 04/02/2017 DRAIN/INJECT JOINT/BURSA CPT-4: 65816 02/06/2017 ADMIN INFLUENZA VIRUS VAC CPT-4: G0008 12/08/2016 FLU VACC PRSV FREE INC ANTIG CPT-4: 45119 12/08/2016 PRESCRIP TRANSMIT VIA ERX SY CPT-4: G8553 12/08/2016 PRESCRIP TRANSMIT VIA ERX SY CPT-4: G8553 11/17/2016 TRIAMCINOLONE ACET INJ NOS CPT-4: J3301 10/02/2016 TRIAMCINOLONE ACET INJ NOS CPT-4: J3301 09/12/2016 DRAIN/INJECT JOINT/BURSA CPT-4: 63034 09/08/2016 TRIAMCINOLONE ACET INJ NOS CPT-4: J3301 09/08/2016 PRESCRIP TRANSMIT VIA ERX SY CPT-4: G8553 08/26/2016 PRESCRIP TRANSMIT VIA ERX SY CPT-4: G8553 08/18/2016 ADMIN INFLUENZA VIRUS VAC CPT-4: G0008 11/19/2015 FLU VACC PRSV FREE INC ANTIG Formatting Model/CDA Sections, Assigned to/Luanne Elaine CPT-4: 94218Ywrwltk 11/19/2015 PRESCRIP TRANSMIT VIA ERX SY CPT-4: G8553 09/04/2015 PRESCRIP TRANSMIT VIA ERX SY CPT-4: G8553 2015 PRESCRIP TRANSMIT VIA ERX SY CPT-4: G8553 07/18/2015 PRESCRIP TRANSMIT VIA ERX SY CPT-4: G8553 07/02/2015 REMOVE IMPACTED EAR WAX UNI CPT-4: 35507 04/09/2015 PRESCRIP TRANSMIT VIA ERX SY CPT-4: G8553 02/08/2015 ADMIN INFLUENZA VIRUS VAC CPT-4: G0008 01/10/2015 FLU VACC PRSV FREE INC ANTIG Formatting Model/CDA Sections, Assigned to/Luanne Elaine CPT-4: 28779Zccwhzs 01/10/2015 ADMIN PNEUMOCOCCAL VACCINE Formatting Model/CDA Sections, Assigned to SNOMED CT: 55833573 CPT-4: V4914Ugqmotr 12/11/2014 PNEUMOCOCCAL VACC [address]: 44795183 CPT-4: 39263 12/11/2014 Vital Signs Date Vital 12/24/2017 Blood Pressure 1: 115/58 Code : 8480-6 BMI: 23.5 Code : 78458-9 Heart Rate 1 : 58 bpm Height: 5'8" SpO2: 96% Weight: 152 lbs 11/30/2017 Blood Pressure 1: 122/70 Code : 8480-6 Heart Rate 1: 105 bpm Height: 5'8" SpO2: 98% Weight: 11/27/2017 Blood Pressure 1: 148/76 Code : 8480-6 Heart Rate 1: 72 bpm Height: 5'8" SpO2: 99% Weight: 11/10/2017 Blood Pressure 1: 130/76 Code : 8480-6 BMI: 27.3 Code : 26932-6 Heart Rate 1 : 98 bpm Height: [...] Code : 8480-6 BMI: 24.7 Code : 06096-4 Heart Rate 1 : 100 bpm Height: 5'8" SpO2: 95% Weight: 160 lbs 08/31/2017 Blood Pressure 1: 128/78 Code : 8480-6 BMI: 23.6 Code : 20049-5 Heart Rate 1 : 102 bpm Height: 5'8" SpO2: 96% Weight: 153 lbs 08/21/2017 Blood Pressure 1: 138/78 Code : 8480-6 Heart Rate 1: 97 bpm SpO2: 95% Weight: 156 lbs 2 oz 08/12/2017 Blood Pressure 1: 138/74 Code : 8480-6 BMI: 25.0 Code : 98179-2 Heart Rate 1 : 94 bpm Height: 5'8" SpO2: 98% Weight: 162 lbs 08/05/2017 Blood Pressure 1: 126/78 Code : 8480-6 BMI: 25.8 Code : 13293-6 Heart Rate 1 : 74 bpm Height: 5'8" SpO2: 96% Weight: 167 lbs 07/23/2017 Blood Pressure 1: 106/64 Code : 8480-6 BMI: 25.3 Code : 49372-8 Heart Rate 1 : 81 bpm Height: 5'8" SpO2: 99% Weight: 163 lbs 14 oz 07/09/2017 Blood Pressure 1: 130/68 Code : 8480-6 Heart Rate 1: 82 bpm Height: 5'8" SpO2: 98% Weight: 07/01/2017 Blood Pressure 1: 124/76 Code : 8480-6 BMI: 26.5 Code : 00611-0 Heart Rate 1 : 99 bpm Height: 5'8" SpO2: 98% Weight: 172 lbs 06/24/2017 Blood Pressure 1: 118/70 Code : 8480-6 Heart Rate 1: 103 bpm Height: 5'8" SpO2: 98% Weight: 06/17/2017 Blood Pressure 1: 110/64 Code : 8480-6 BMI: 25.0 Code : 88397-5 Heart Rate 1 : 73 bpm Height: 5'8" Weight: 162 lbs 06/01/2017 Blood Pressure 1: 158/84 Code : 8480-6 BMI: 24.4 Code : 96570-3 Heart Rate 1 : 94 bpm Height: 5'8" SpO2: 95% Weight: 158 lbs 04/02/2017 Blood Pressure 1: 164/80 Code : 8480-6 BMI: 23.1 Code : 46880-1 Heart Rate 1 : 76 bpm Height: 5'8" SpO2: 94% Weight: 150 lbs 03/12/2017 Blood Pressure 1: 130/74 Code : 8480-6 BMI: 23.0 Code : 32692-5 Heart Rate 1 : 92 bpm Height: 5'8" SpO2: 94% Weight: 149 lbs 02/06/2017 Height: Weight: 01/08/2017 Blood Pressure 1: 136/76 Code : 8480-6 BMI: 21.4 Code : 43344-0 Heart Rate 1 : 85 bpm Height: 5'8" SpO2: 98% Weight: 138 lbs 8 oz 12/08/2016 Blood Pressure 1: 132/66 Code : 8480-6 BMI: 22.2 Code : 54238-2 Heart Rate 1 : 106 bpm Height: 5'8" SpO2: 97% Weight: 144 lbs 11/17/2016 Blood Pressure 1: 146/80 Code : 8480-6 BMI: 22.4 Code : 66138-6 Heart Rate 1 : 100 bpm Height: 5'8" SpO2: 98% Weight: 145 lbs 11/10/2016 Blood Pressure 1: 122/62 Code : 8480-6 BMI: 22.2 Code : 15408-8 Height: 5'8" Weight: 144 lbs 11/05/2016 Blood Pressure 1: 146/80 Code : 8480-6 BMI: 22.2 Code : 56505-2 Heart Rate 1 : 77 bpm Height: 5'8" SpO2: 99% Weight: 144 lbs 10/07/2016 Blood Pressure 1: 132/68 Code : 8480-6 BMI: 22.8 Code : 29374-5 Heart Rate 1 : 90 bpm Height: 5'8" SpO2: 97% Weight: 148 lbs 10/02/2016 Blood Pressure 1: 166/86 Code : 8480-6 BMI: 22.8 Code : 41064-2 Heart Rate 1 : 96 bpm Height: 5'8" SpO2: 96% Weight: 148 lbs 09/12/2016 Blood Pressure 1: 130/86 Code : 8480-6 Height: Weight: 09/08/2016 Blood Pressure 1: 132/74 Code : 8480-6 BMI: 22.4 Code : 48918-8 Heart Rate 1 : 93 bpm Height: 5'8" SpO2: 99% Weight: 145 lbs 08/26/2016 Blood Pressure 1: 132/78 Code : 8480-6 BMI: 23.9 Code : 29602-8 Heart Rate 1 : 80 bpm Height: 5'8" SpO2: 94% Weight: 155 lbs 08/18/2016 Blood Pressure 1: 130/70 Code : 8480-6 BMI: 23.6 Code : 79740-9 Heart Rate 1 : 100 bpm Height: 5'8" SpO2: 94% Weight: 153 lbs 07/30/2016 Blood Pressure 1: 144/84 Code : 8480-6 BMI: 22.4 Code : 26278-9 Heart Rate 1 : 86 bpm Height: 5'8" SpO2: 97% Weight: 145 lbs 07/14/2016 Blood Pressure 1: 122/74 Code : 8480-6 BMI: 22.5 Code : 58163-5 Heart Rate 1 : 87 bpm Height: 5'8" SpO2: 97% Weight: 146 lbs 07/04/2016 Blood Pressure 1: 128/78 Code : 8480-6 BMI: 22.5 Code : 27821-6 Heart Rate 1 : 98 bpm Height: 5'8" Weight: 146 lbs 06/26/2016 Blood Pressure 1: 122/68 Code : 8480-6 BMI: 22.5 Code : 31488-7 Heart Rate 1 : 102 bpm Height: 5'8" SpO2: 98% Weight: 146 lbs 05/28/2016 Blood Pressure 1: 122/68 Code : 8480-6 BMI: 22.4 Code : 83345-5 Heart Rate 1 : 89 bpm Height: 5'8" SpO2: 97% Weight: 145 lbs 03/18/2016 Blood Pressure 1: 132/66 Code : 8480-6 BMI: 22.8 Code : 42188-4 Heart Rate 1 : 96 bpm Height: 5'8" SpO2: 98% Weight: 148 lbs 01/29/2016 Blood Pressure 1: 122/66 Code : 8480-6 BMI: 22.2 Code : 42726-3 Heart Rate 1 : 90 bpm Height: 5'8" SpO2: 99% Weight: 144 lbs 01/01/2016 Blood Pressure 1: 148/82 Code : 8480-6 BMI: 22.5 Code : 22490-0 Heart Rate 1 : 82 bpm Height: 5'8" Weight: 146 lbs 11/19/2015 Blood Pressure 1: 140/74 Code : 8480-6 BMI: 23.7 Code : 56172-1 Heart Rate 1 : 79 bpm Height: 5'8" SpO2: 96% Weight: 153 lbs 8 oz 11/01/2015 Blood Pressure 1: 118/72 Code : 8480-6 Heart Rate 1: 90 bpm Height: 5'8" SpO2: 95% 09/04/2015 Blood Pressure 1: 136/72 Code : 8480-6 BMI: 23.1 Code : 14786-2 Heart Rate 1 : 97 bpm Height: 5'8" SpO2: 98% Weight: 149 lbs 8 oz 2015 Blood Pressure 1: 144/76 Code : 8480-6 BMI: 22.8 Code : 77066-9 Heart Rate 1 : 75 bpm Height: 5'8" SpO2: 97% Weight: 148 lbs 07/18/2015 Blood Pressure 1: 132/60 Code : 8480-6 BMI: 23.1 Code : 20492-5 Heart Rate 1 : 78 bpm Height: 5'8" Weight: 150 lbs 07/02/2015 Blood Pressure 1: 156/86 Code : 8480-6 BMI: 23.0 Code : 33688-2 Heart Rate 1 : 75 bpm Height: 5'8" SpO2: 99% Weight: 149 lbs 05/31/2015 Blood Pressure 1: 136/72 Code : 8480-6 BMI: 22.7 Code : 32620-6 Heart Rate 1 : 85 bpm Height: 5'8" SpO2: 97% Weight: 147 lbs 04/09/2015 Blood Pressure 1: 118/60 Code : 8480-6 BMI: 22.7 Code : 28863-8 Heart Rate 1 : 72 bpm Height: 5'8" SpO2: 95% Weight: 147 lbs 02/08/2015 Blood Pressure 1: 138/76 Code : 8480-6 BMI: 23.1 Code : 36755-7 Heart Rate 1 : 80 bpm Height: 5'8" SpO2: 98% Weight: 150 lbs 12/11/2014 Blood Pressure 1: 120/74 Code : 8480-6 BMI: 22.1 Code : 72339-0 Heart Rate 1 : 92 bpm Height: 5'8" SpO2: 96% Weight: 143 lbs 11/09/2014 Blood Pressure 1: 100/64 Code : 8480-6 BMI: 21.6 Code : 50264-6 Heart Rate 1 : 88 bpm Height: 5'8" Weight: 140 lbs 10/23/2014 Blood Pressure 1: 138/82 Code : 8480-6 BMI: 23.6 Code : 24426-4 Heart Rate 1 : 86 bpm Height: 5'8" Weight: 153 lbs 10/16/2014 Blood Pressure 1: 128/60 Code : 8480-6 BMI: 23.3 Code : 49984-3 Heart Rate 1 : 91 bpm Height: 5'8" SpO2: 99% Weight: 151 lbs 10/09/2014 Blood Pressure 1: 120/60 Code : 8480-6 BMI: 23.0 Code : 85551-3 Heart Rate 1 : 96 bpm Height: 5'8" SpO2: 97% Weight: 149 lbs 09/14/2014 Blood Pressure 1: 132/72 Code : 8480-6 BMI: 22.1 Code : 04911-1 Heart Rate 1 : 84 bpm Height: 5'8" SpO2: 97% Weight: 143 lbs 08/11/2014 Blood Pressure 1: 134/74 Code : 8480-6 BMI: 24.1 Code : 35540-4 Heart Rate 1 : 88 bpm Height: 5'8" Weight: 156 lbs 07/12/2014 Blood Pressure 1: 122/62 Code : 8480-6 BMI: 22.7 Code : 30665-7 Heart Rate 1 : 76 bpm Height: 5'8" Weight: 147 lbs Functional Status No Functional Status data History of Present Illness Symptom Name Status Result Effective Date Notes Hospital Follow Up Onset of Symptom 3 [...] Dr. Blanc[place] in [place] and Neurosurgeon in [place] in the past neck pain Significant Medical Conditions spinal stenosis 07/12/2014 has osteoarthritis Advance Directives No Advance Directive data Encounters Encounter Performer Location Codes Date ([id number]) [id number] EST. PATIENT, LEVEL IV Diagnosis: Essential (primary) hypertension[ICD10: I10] Diagnosis: Generalized edema[ICD10: R60.1] Diagnosis: Chronic pain syndrome[ICD10: G89.4] Araceli Silva MD, [facility] CPT-4: 61011 12/24/2017 ([id number]) 38705 EST. PATIENT, LEVEL III Diagnosis: Lymphedema, not elsewhere classified[ICD10: I89.0] [facility] CPT-4: 38887 11/30/2017 ([id number]) 21245 EST. PATIENT, LEVEL III Diagnosis: Generalized edema[ICD10: R60.1] Ila Silva MD, [facility] CPT-4: 65617 11/27/2017 ([id number]) 13734 EST. PATIENT, LEVEL IV Diagnosis: Localized edema[ICD10: [...] in left shoulder[ICD10: M25.512] Araceli Silva MD, [facility] CPT-4: 64599 11/10/2017 ([id number]) 78207 EST. PATIENT, LEVEL IV Diagnosis: Localized edema[ICD10: [...] in left shoulder[ICD10: M25.512] Araceli Silva MD, [facility] CPT-4: 20895 10/29/2017 ([id number]) 79166 EST. PATIENT, LEVEL IV Diagnosis: Essential (primary) [...] Diagnosis: Localized edema[ICD10: R60.0] Araceli Silva MD, [facility] CPT- 4: 60495 10/20/2017 [id number]) 95018 EST. 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 PATIENT, LEVEL IV Diagnosis: Primary osteoarthritis, left shoulder[ICD10: M19.012] Diagnosis: Pain in left shoulder[ICD10: M25.512] Diagnosis: Lymphedema, not elsewhere classified[ICD10: I89.0] Diagnosis: Localized edema[ICD10: R60.0] Diagnosis: Chronic atrial fibrillation[ICD10: I48.2] Araceli Silva MD, [facility] CPT-4: 89984 09/15/2017 [id number]) 71409 EST. PATIENT, LEVEL III Diagnosis: Primary osteoarthritis, left shoulder[ICD10: M19.012] Diagnosis: Pain in left shoulder[ICD10: M25.512] Diagnosis: Hemarthrosis, left shoulder[ICD10: M25.012] Araceli Silva MD, [facility] CPT-4: 36535 08/31/2017 [id number]) 05176 EST. 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 PATIENT, LEVEL III Diagnosis: Localized edema[ICD10: R60.0] Araceli Silva MD [facility] CPT- 4: 60969 07/23/2017 ([id number]) 43863 EST. PATIENT, LEVEL III Diagnosis: Rheumatoid arthritis without rheumatoid factor, left shoulder[ICD10: M06.012] Diagnosis: Hemarthrosis, left shoulder[ICD10: M25.012] Araceli Silva MD, [facility] CPT-4: 65062 07/09/2017 ([id number]) 59444 EST. PATIENT, LEVEL III Diagnosis: Chronic pain syndrome[ICD10: G89.4] Diagnosis: Rheumatoid arthritis without rheumatoid factor, left shoulder[ICD10: M06.012] Diagnosis: Hemarthrosis, left shoulder[ICD10: M25.012] Diagnosis: Lymphedema, not elsewhere classified[ICD10: I89.0] Araceli Silva MD, [facility] CPT-4: 31380 07/01/2017 ([id number]) 24837 EST. PATIENT, LEVEL III Diagnosis: Chronic pain syndrome[ICD10: G89.4] Araceli Silva MD, [facility] CPT-4: 63930 06/24/2017 ([id number]) 50759 EST. 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 PATIENT, LEVEL III Diagnosis: Pain in left shoulder[ICD10: M25.512] Diagnosis: Hemarthrosis, right shoulder[ICD10: M25.011] Diagnosis: Hemarthrosis, left shoulder[ICD10: M25.012] Maricel Silva MD, [facility] CPT-4: 45501 06/01/2017 ([id number]) 02441 EST. PATIENT, LEVEL II Diagnosis: Pain in right shoulder[ICD10: M25.511] Diagnosis: Hemarthrosis, right shoulder[ICD10: M25.011] Araceli Silva MD, [facility] CPT-4: 09270 04/02/2017 ([id number]) 36478 EST. 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 PATIENT, LEVEL IV Diagnosis: Encounter for immunization[ICD10: Z23] Diagnosis: Chronic pain syndrome[ICD10: G89.4] Diagnosis: Essential (primary) hypertension[ICD10: I10] Araceli Silva MD, [facility] CPT-4: 63072 12/08/2016 ([id number]) 88136 EST. PATIENT, LEVEL III Diagnosis: Urge incontinence[ICD10: N39.41] Diagnosis: Chronic pain syndrome[ICD10: G89.4] Diagnosis: Lymphedema, not elsewhere classified[ICD10: I89.0] Araceli Silva MD, [facility] CPT-4: 46539 11/17/2016 27226 EST. 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 PATIENT, LEVEL IV Diagnosis: Essential (primary) hypertension[ICD10: I10] Diagnosis: Other chronic pain[ICD10: G89.29] Diagnosis: Localized edema[ICD10: R60.0] Diagnosis: Urge incontinence[ICD10: N39.41] Araceli Silva MD, [facility] CPT-4: 16209 11/05/2016 ([id number]) 08147 EST. 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 PATIENT, LEVEL III Diagnosis: Hemarthrosis, right shoulder[ICD10: M25.011] Diagnosis: Pain in right shoulder[ICD10: M25.511] Ila Silva MD, [facility] CPT-4: 21821 10/02/2016 07016 EST. PATIENT, LEVEL II Diagnosis: Low back pain[ICD10: M54.5] Diagnosis: Sacroiliitis, not elsewhere classified[ICD10: M46.1] Ila Silva MD, [facility] CPT-4: 34526 09/12/2016 ([id number]) 81413 EST. PATIENT, LEVEL III Diagnosis: Hemarthrosis, right shoulder[ICD10: M25.011] Diagnosis: Other chronic pain[ICD10: G89.29] Araceli Silva MD, [facility] CPT-4: 96761 09/08/2016 ([id number]) 79661 EST. PATIENT, LEVEL IV Diagnosis: Other iron deficiency anemias[ICD10: D50.8] Diagnosis: Vitamin D deficiency, unspecified[ICD10: E55.9] Diagnosis: Hypomagnesemia[ICD10: E83.42] Araceli Silva MD [facility] CPT- 4: 40633 08/26/2016 ([id number]) 57616 EST. PATIENT, LEVEL III Diagnosis: Localized edema[ICD10: R60.0] Araceli Silva MD [facility] CPT- 4: 09491 08/18/2016 ([id number]) 03016 EST. 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 PATIENT, LEVEL IV Diagnosis: Pain in left shoulder[ICD10: M25.512] Diagnosis: Nocturia[ICD10: R35.1] Maricel Silva MD, [facility] CPT-4: 42209 07/14/2016 85414 EST. PATIENT, LEVEL III Diagnosis: Pain in left shoulder[ICD10: M25.512] Maricel Silva MD, [facility] CPT-4: 60868 07/04/2016 ([id number]) 08835 EST. PATIENT, LEVEL III Diagnosis: Spinal stenosis, cervicothoracic region[ICD10: M48.03] Diagnosis: Essential (primary) hypertension[ICD10: I10] Araceli Sivla MD, [facility] CPT-4: 66371 06/26/2016 ([id number]) 79027 EST. 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 PATIENT, LEVEL II Diagnosis: Insect bite (nonvenomous) of right upper arm, initial encounter[ICD10 : S40.861A] Ila Silva MD, [facility] CPT-4: 76939 11/01/2015 ([id number]) 38240 EST. 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 PATIENT, LEVEL III Diagnosis: Contusion of left upper arm, subsequent encounter[ICD10: S40.022D] Araceli Silva MD, [facility] CPT-4: 00780 2015 52797 EST. PATIENT, LEVEL III Diagnosis: Cellulitis of left upper limb[ICD10: L03.114] Maricel Gerard Silva MD, [facility] CPT-4: 60217 07/18/2015 ([id number]) 30027 EST. 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 PATIENT, LEVEL IV Diagnosis: Essential (primary) hypertension[ICD10: I10] Diagnosis: Vitamin D deficiency, unspecified[ICD10: E55.9] Diagnosis: Mixed hyperlipidemia[ICD10: E78.2] Diagnosis: Age-related osteoporosis with current pathological fracture, unspecified site, sequela[ICD10: M80.00XS] Araceli Silva MD [facility] CPT- 4: 23514 02/08/2015 ([id number]) 47129 EST. PATIENT, LEVEL IV Diagnosis: Essential (primary) hypertension[ICD10: I10] Diagnosis: Localized edema[ICD10: R60.0] Diagnosis: Primary osteoarthritis, unspecified site[ICD10: M19.91] Araceli Silva MD [facility] CPT-4: 76625 12/11/2014 ([id number]) 25093 EST. PATIENT, LEVEL III Diagnosis: EDEMA[ICD9: 782.3] Diagnosis: ESSENTIAL HYPERTENSION[ICD9: 401.9] Araceli Silva MD [facility] CPT-4: 27776 11/09/2014 ([id number]) 82949 EST. PATIENT, LEVEL III Diagnosis: Leg pain[ICD9: 729.5] Diagnosis: Ulcer of toe[ICD9: 707.15] Araceli Silva MD [facility] CPT- 4: 08508 10/23/2014 ([id number]) 46815 EST. PATIENT, LEVEL III Diagnosis: Ulcer of toe[ICD9: 707.15] Araceli Silva MD [facility] CPT- 4: 52577 10/16/2014 65650 EST. PATIENT, LEVEL II Diagnosis: Ulcer of toe[ICD9: 707.15] Ila Silva MD [facility] CPT-4: 65946 10/09/2014 ([id number]) 47580 EST. PATIENT, LEVEL III Diagnosis: EDEMA[ICD9: 782.3] Araceli Silva MD [facility] CPT-4: 09956 09/14/2014 ([id number]) 85395 EST. PATIENT, LEVEL IV Diagnosis: EDEMA[ICD9: 782.3] Diagnosis: ESSENTIAL HYPERTENSION[ICD9: 401.9] Araceli Silva MD [facility] CPT-4: 52496 08/11/2014 ([id number]) OFFICE VISIT, NEW - LEVEL 4 Diagnosis: HYPERLIPIDEMIA[ICD9: 272.4] Diagnosis: VITAMIN D DEFICIENCY[ICD9: 268.9] Diagnosis: Osteoporosis[ICD9: 733.00] Diagnosis: Esophageal reflux[ICD9: 530.81] Diagnosis: Chronic pain[ICD9: 338.29] [facility] CPT- 4: 06118 07/12/2014 Plan of Care Planned Activity Notes Codes Status Date Visit Plan: Hypertension - well controlled - [...] oxycodone scheduled. 12/24/2017 [phone] ([facility] Complex 12/24/2017 Patient Education: [...] and output. 11/30/2017 Appointment: [phone] (15 min) Moderate 11/30/2017 Patient Education: Patient [...] of over-medication. 11/10/2017 Appointment: Araceli Silva WPtel: [phone] [facility] (15 min) Moderate 11/10/2017 Patient Education: Patient [...] hands/fingers. We will contact [facility] in [place] for paperwork regarding the scooter. 10/29/2017 Appointment: [phone] ([facility] min) Moderate 10/29/2017 Patient Education: [...] this time. 10/20/2017 Appointment: Araceli Silva WPtel: [address] [place], [place] [address] (30 min) Complex 10/20/2017 Patient Education: Patient [...] drained today. 09/29/2017 Appointment: [phone] [place] (15 min) Moderate 09/29/2017 Patient Education: Patient [...] Summary Completed 08/21/2017 Appointment: [phone] [facility] [place] (15 min) Moderate 08/20/2017 Visit Plan: Hemarthrosis shoulders - 250mL from left shoulder and 100mL from right shoulder with 1ml kenalog injected into right and left shoulders - Left and right shoulder pain and swelling, swelling into arms and left breast -pt to continue with use of compression sleeves. [id number] sep 2018 bristol 2ml kenalog 08/12/2017 Appointment: Araceli Silva WPtel: [facility] [place] [place] (15 min) Moderate 08/12/2017 Patient Education: Patient [...] edema. 08/05/2017 Appointment: [phone] [facility] [place] (15 min) Moderate 08/05/2017 Patient [...] attempt to reduce peripheral edema. 07/23/2017 Appointment: [phone] [place] (15 min) Moderate 07/23/2017 Patient [...] monitor symptoms. 07/09/2017 Appointment: Araceli Silva WPtel: [phone] [facility] [place] (15 min) Moderate 07/09/2017 Patient Education: Patient Medication Summary Completed 07/09/2017 Referral: [facility] WPtel: Referral Initiated 07/08/2017 Visit [...] monitor symptoms. 07/01/2017 Appointment: Araceli Silva WPtel: [address] [facility] [place] (15 min) Moderate 07/01/2017 Patient Education: Patient Medication Summary Completed 07/01/2017 Visit Plan: Chronic Pain Syndrome - pt has chronic pain - has been maintained on current medications, has not sought out other medications , only uses PRN pain medications as directed, and understands the consequences of over-medication. 06/24/2017 Appointment: [phone] [place] (15 min) Moderate 06/24/2017 Patient [...] edema. 06/17/2017 Appointment: Araceli Silva WPtel: [phone] [facility] [place] (30 min) Complex 06/17/2017 Patient Education: Patient Medication Summary Completed 06/17/2017 Appointment: Araceli Silva WPtel: [phone] [facility] [place] (15 min) Moderate 06/08/2017 Care Plan: Referral Order SNOMED-CT : [id number] Pending 06/02/2017 Visit Plan: Left and right [...] peripheral edema. 06/01/2017 App[facility]ment: [facility] [place] ([facility] min) Complex 06/01/2017 Patient Education: [...] from shoulder 04/02/2017 Appointment: [phone] [place] (15 min) Moderate 04/02/2017 Patient [...] stomach upset. 03/12/2017 Appointment: [phone] (15 min) Moderate 03/12/2017 Patient Education: Patient [...] of over-medication. Rash - on face, check LUANN. 01/08/2017 Appointment: [facility] [place] (15 min) Moderate 01/08/2017 Patient Education: [...] Remicaide. 12/08/2016 Appointment: Araceli Silva WPtel: [phone] [facility] (15 min) Moderate 12/08/2016 Patient Education: Patient [...] for now 11/17/2016 Appointment: Araceli Silva WPtel: [phone] [facility] (15 min) Moderate 11/17/2016 Patient Education: Patient [...] of over-medication. 11/10/2016 Appointment: Maricel Gee WPtel: [phone] [facility] (30 min) Complex 11/10/2016 Patient Education: Patient [...] steroids, immunosuppression. 11/05/2016 Appointment: [facility]el[phone] [place] (15 min) Moderate 11/05/2016 Patient Education: [...] cbc today. 10/07/2016 Appointment: Araceli Silva WPtel: [facility] [place] [place] (15 min) Moderate 10/07/2016 Patient Education: Patient Medication Summary Completed 10/07/2016 Care Plan: Referral Order SNOMED-CT : [id number] Pending 10/07/2016 Care Plan: Referral Order SNOMED-CT : [id number] Pending 10/07/2016 Visit Plan: Hemarthrosis -right shoulder-only able to drain 5ml of bloody drainage-unable to give oral steroids due to recent GI bleed -will give kenalog injection today in the office-discussed getting OSMO patch 10/02/2016 Appointment: Ila Kennedy WPtel: [facility] [phone] [place] (30 min) Complex 10/02/2016 Patient Education: Patient Medication Summary Completed 10/02/2016 Appointment: Araceli Silva WPtel: [facility] [place] [place] (15 min) Moderate 09/23/2016 Appointment: Araceli Silva WPtel: [facility] [place] [facility] (15 min) Moderate 09/17/2016 Visit Plan: Sacroiliitis - back exercises discussed with the patient, pt to continue with anti-inflammatories. Pt is to call if the symptoms do not improve or if they worsen. Kenalog injection today in the office. 09/12/2016 Appointment: Ila Kennedy WPtel: [facility] [place] [place] [phone] [place] (15 min) Moderate 09/12/2016 Patient Education: Patient Medication Summary Completed 09/12/2016 Visit Plan: Hemarthrosis - drain right shoulder. Injection of kenalog 1mL - 40mg - [employer] - lot #[id number] , expires oct 2017 Chronic Pain Syndrome [...] of over-medication. 09/08/2016 Appointment: Araceli Silva WPtel: [facility] [place] (15 min) Moderate 09/08/2016 Patient Education: Patient [...] magnesium level 08/26/2016 Appointment: Araceli Silva WPtel: [facility] [place] (15 min) Moderate 08/26/2016 Patient Education: Patient [...] Summary Completed 08/18/2016 Appointment: Araceli Silva WPtel: 101 [facility] (15 min) Moderate 08/13/2016 Appointment: Araceli Silva WPtel: [phone] [facility] (15 min) Moderate 08/06/2016 Visit Plan: Chronic [...] the daytime. 07/30/2016 Appointment: Araceli Silva WPtel: [phone] [facility] (15 min) Moderate 07/30/2016 Patient Education: Patient Medication Summary Completed 07/30/2016 Visit Plan: Left shoulder pain - improving - pt is to notify clinic if symptoms do not improve, if they worsen, or with any questions or concerns. Nocturia - will give samples, pt is to notify clinic if symptoms do not improve. 07/14/2016 Appointment: Maricel Gee WPtel: [phone] [facility] (30 min) Complex 07/14/2016 Patient Education: Patient [...] any dyspnea. 07/04/2016 Appointment: [facility] ([facility] min) Complex 07/04/2016 Patient Education: Patient [...] over- medication. 06/26/2016 Appointment: Araceli Silva WPtel: [facility] [place] (15 min) Moderate 06/26/2016 Patient Education: Patient [...] of over-medication. 05/28/2016 Appointment: Araceli Silva WPtel: [facility] [place] [place] (15 min) Moderate 05/28/2016 Patient Education: Patient Medication Summary Completed 05/28/2016 Patient Education: Hypertension Completed 05/28/2016 Appointment: [facility]Ptel: [phone] [place] (15 min) Moderate 05/12/2016 Appointment: Araceli Silva WPtel: [facility] [place] [place] (15 min) Moderate 04/15/2016 Appointment: Araceli Silva WPtel: [phone] [facility] (30 min) Complex 03/25/2016 Visit Plan: Hypertension [...] the premarin. 03/18/2016 Appointment: Araceli Silva WPtel: [phone] [facility] (30 min) Complex 03/18/2016 Patient Education: Patient Medication Summary Completed 03/18/2016 Appointment: Araceli Silva WPtel: [facility] [place] (15 min) Moderate 02/19/2016 Visit Plan: Hypertension [...] of over-medication. 01/29/2016 Appointment: Araceli Silva WPtel: [phone] [facility] (15 min) Moderate 01/29/2016 Patient Education: Patient Medication Summary Completed 01/29/2016 Visit Plan: Discussed MRI of the neck - pt is interested in doing this - however, not prior to changing her medication first to see if this helps her pain 01/01/2016 Appointment: [facility] Silva [facility]Ptel: [phone] [place] (15 min) Moderate 01/01/2016 Patient Education: Patient Medication Summary Completed 01/01/2016 Patient Education: Hypertension Completed 01/01/2016 Appointment: Araceli Silva WPtel: [facility] [place] (15 min) Moderate 12/03/2015 Visit Plan: Chronic [...] or nonhealing. 11/01/2015 Appointment: Ila Kennedy WPtel: [facility] [place]5 [phone] [place] (15 min) Moderate 11/01/2015 Patient Education: Patient Medication Summary Completed 11/01/2015 Visit Plan: Chronic Pain Syndrome - pt has chronic pain - has been maintained on current medications, has not sought out other medications , only uses PRN pain medications as directed, and understands the consequences of over-medication. Muscle spasms - recommended muscle rub. 09/04/2015 Appointment: Araceli Silva WPtel: [facility] [place] [place] (15 min) Moderate 09/04/2015 Patient Education: Patient Medication Summary Completed 09/04/2015 Visit Plan: Ecchymosis/hematoma - improving - discussed natural progression of hematomas - watchful waiting. 2015 Appointment: Araceli Silva WPtel: [phone] [facility] (15 min) Moderate 2015 Patient Education: Patient Medication Summary Completed 2015 Visit Plan: Cellulitis - continue with oral antibiotics as previously directed, return to clinic as previously directed, call for acute change in symptoms, worsening redness, warmth, discharge. 07/18/2015 Appointment: Ila Kennedy WPtel: [facility] [place]6 [phone] [place] (30 min) Complex 07/18/2015 Patient Education: [...] center/surgery center. 07/02/2015 Appointment: Araceli Silva WPtel: [facility] [place]5 [facility] [place] (15 min) Moderate 07/02/2015 Patient Education: [...] her ambulation and safety with ambulation. 04/09/2015 Visit Plan: Iron deficiency Anemia - [...] patient stabilized during the removal process. 04/09/2015 Appointment: Araceli Silva WPtel: [address] [place], [place] [address] (15 min) Moderate 04/09/2015 Patient Education: Patient [...] d supplementation. 02/08/2015 Appointment: [phone] (15 min) Moderate 02/08/2015 Patient Education: Patient Medication Summary Completed 02/08/2015 Patient Education: Hypertension Completed 02/08/2015 Appointment: Injection 01/10/2015 Patient Education: Patient Medication Summary Completed [...] the evening. 12/11/2014 Appointment: [facility]Ptel[facility] (15 min) Moderate 12/11/2014 Patient Education: Patient [...] - improved. 11/09/2014 Appointment: Araceli Silva WPtel: [facility] [place]5 [facility] (15 min) Moderate 11/09/2014 Patient Education: Patient Medication Summary Completed 11/09/2014 Patient Education: Hypertension Completed 11/09/2014 Visit Plan: Leg pain/cellulitis of leg - start on the doxycycline twice daily - take this x 2 weeks, if the symptoms in your leg/ thigh are not completely resolved, there is a refill that is available. start on a probiotic one pill daily (Zipcar or BasisCode) this will help prevent the development of a bad type of diarrhea that can occur when taking antibiotics. Ulcer of toe - improving. 10/23/2014 Appointment: Araceli Silva WPtel: [address] [place], [place] [phone] (15 min) Moderate 10/23/2014 Patient Education: Patient Medication Summary Completed 10/23/2014 Visit Plan: Ulcer - keep lesion covered, antibiotic ointment to be used, monitor - call if redness increases or starts streaking up the foot. 10/16/2014 Appointment: Araceli Silva WPtel: [facility] [place] (15 min) Moderate 10/16/2014 Patient Education: Patient [...] peripheral edema. 09/14/2014 Appointment: Araceli Silva WPtel: [phone] [facility] Follow up 09/14/2014 Patient Education: Patient Medication [...] over- medication. 07/12/2014 Appointment: [facility]el[phone] [place] ([place] New Patient 07/12/2014 Patient Education: Patient Medication Summary Completed 07/12/2014 Patient Education: Hypertension Completed 07/12/2014 Referral: Dr Virgen Referral Completed Referral: External, Ordering Provider Referral Completed Referral: [facility] WPtel: Referral Initiated Instructions Comment [...] use prn swelling. Check magnesium level . Hemarthrosis -right shoulder-only able to drain 5ml of bloody drainage-unable to give oral steroids due to recent GI bleed-will give kenalog injection today in the office-discussed getting OSMO patch . Chronic Pain Syndrome - pt has [...] Inflammatory Arthritis - continue with Remicaide. . Ulcer - keep lesion covered, antibiotic ointment to be used, monitor - call if redness increases or starts streaking up the foot. . Iron deficiency Anemia - recommended pt [...] her ambulation and safety with ambulation. . Iron deficiency Anemia - recommended pt [...] patient stabilized during the removal process. . Lymphedema of upper and lower extremities [...] call if worsening. Edema - improved. . Hemarthrosis - drain right shoulder. Injection of kenalog 1mL - 40mg - [employer] - lot #[id number] , expires oct 2017 Chronic Pain Syndrome [...] the touch, or with any dyspnea. . Hypertension - well controlled - continue [...] surgery. Spinal stenosis - refilled pain medication. start on the doxycycline twice daily - take this x 2 weeks , if the symptoms in your leg/thigh are not completely resolved, there is a refill that is available. start on a probiotic one pill daily (Zipcar or [employer]asisCode) this will help prevent the development of a bad type of diarrhea that can occur when taking antibiotics. . Leg pain/cellulitis of leg - start on the doxycycline twice daily - take this x 2 weeks, if the symptoms in your leg/thigh are not completely resolved, there is a refill that is available. start on a probiotic one pill daily ([employer]car or [employer]) this will help prevent the development of a bad type of diarrhea that can occur when taking antibiotics. Ulcer of toe - improving. . Hemarthrosis - pt was prepped and [...] Ambrocio's associate. Continue with steroids, immunosuppression. . Edema - pt has been advised [...] change in blood pressure readings at home. . Chronic Pain Syndrome - pt [...] 6 small meals during the daytime. . Hypertension - well controlled - continue [...] - continue with vitamin d supplementation. . Chronic Pain Syndrome - pt has chronic pain - has been maintained on current medications, has not sought out other medications, only uses PRN pain medications as directed, and understands the consequences of over- medication. . Tick Bite - pt given script for treatment of infected tick bite, call for symptoms of worsening infection or nonhealing. . Tick Bite - pt given script for treatment of infected tick bite, call for symptoms of worsening infection or nonhealing. . Left shoulder pain - improving - [...] hands/fingers. We will contact [facility] [employer] in [place] for paperwork regarding the scooter. . Hypertension [...] and understands the consequences of over-medication. . Ecchymosis/hematoma - improving - discussed natural progression of hematomas - watchful waiting. next mammogram will be due in Oct. [...] Pt did not need joints drained today. ok for appt with Danuta Klein - [...] to assure normal liver response to medications. bumex daily in the afternoon . Edema-worsening- [...] to continue with use of compression sleeves. [id number] sep 2018 bristol 2ml kenalog . Hypertension - well controlled - continue [...] of over-medication. Rash - on face, check LUANN. . Hemarthrosis shoulders - 200mL from left [...] stable on fentanyl - monitor symptoms. . Cellulitis - continue with oral antibiotics as previously directed, return to clinic as previously directed, call for acute change in symptoms, worsening redness, warmth, discharge. Keep toes clean and dry-call if sore [...] abx. Patient verbalized understanding of plan. . Hyperlipidemia - pt has been counseled [...] and understands the consequences of over-medication. . Atrial fibrillation - pt's rate is [...] home. Lymphedema - Will have her re-initiate DEANGLEO bandages tonight and give IV lasix tomorrow [...] with supportive care at this time. . Edema - pt has been advised to elevate legs to prevent dependent edema, compression has been recommended to help to naturally decrease peripheral edema. Diuretic use has been discussed and pt has been instructed in appropriate use of such medication as necessary to further attempt to reduce peripheral edema. . Sacroiliitis - back exercises discussed with the patient , pt to continue with anti-inflammatories. Pt is to call if the symptoms do not improve or if they worsen. Kenalog injection today in the office. two old goats muscle rub from [employer] farm [facility] home. . Chronic Pain Syndrome - pt has chronic pain - has been maintained on current medications, has not sought out other medications, only uses PRN pain medications as directed, and understands the consequences of over-medication. Muscle spasms - recommended muscle rub. . Left and right shoulder pain and [...] medication. Anemia - check cbc today. . Discussed MRI of the neck - [...]
--- OUTSIDE RECORDS SUMMARY | 2018-01-25 17:05 | XMS REPORT | CCD ---
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 Phone PP Unavailable CCM Unavailable Summary Purpose Interface Exchange Insurance Providers Payer name Policy type / Coverage type Covered libertarian ID Effective Begin Date Effective End Date [employer] Medicare Part B [id number] 2017 Unknown AETNA Medicare Part B [id number] Unknown Family history Father Diagnosis Age At [...] Unknown Retired 07/12/[address]: 1422401 Quit over 10 years ago 1967 07/12/2014 [...] Start Date Stop Date Status Fill Instructions metolazone 10 mg tablet RxNorm: 486293 1 Tablet(s) PO every other day as needed uncontrolled edema 01/07/2018 02/05/2018 Active metolazone 10 mg tablet RxNorm: 419124 1 Tablet(s) PO every other day as needed uncontrolled edema 01/07/2018 01/06/2018 Inactive Cipro 500 mg tablet RxNorm: 740623 1 Tablet(s) PO BID 201701/15/2018 Active Cipro 500 mg tablet RxNorm: 645073 1 Tablet(s) PO BID 201701/05/2018 Inactive Cardizem CD 360 mg capsule,extended release RxNorm: 043869 1 Capsule(s) PO daily 01/05/2018 05/04/2018 Active potassium chloride ER 10 mEq tablet,extended release(part/ cryst) RxNorm: 5249395 2 Capsule(s) PO TID when taking lasix 01/05/2018 05/04/2018 Active potassium chloride ER 10 mEq capsule,extended release RxNorm: 485172 Capsule(s) TAKE 1 CAPSULE BY MOUTH TWICE DAILY WHEN TAKING LASIX (FUROSEMIDE) 11/27/2017 No Stop Date Active fentanyl 25 mcg/hr transdermal patch RxNorm: 043275 1 Patch TD Q72H use with 100mcg patch for a total of 125mcg daily 11/27/2017 12/26/2017 Inactive fentanyl 100 mcg/hr transdermal patch RxNorm: 324673 1 Patch TD Q72H use with 25mcg/hr patch 11/27/2017 12/26/2017 Inactive potassium chloride ER 10 mEq capsule,extended release RxNorm: 380838 Capsule(s) TAKE 1 CAPSULE BY MOUTH TWICE DAILY WHEN TAKING LASIX (FUROSEMIDE) 11/27/2017 11/26/2017 Inactive bumetanide 0.5 mg tablet RxNorm: 833662 1 Tablet(s) PO daily 12/23/2017 Inactive in the afternoon x 3 days then as needed per Dr Silva oxycodone 30 mg tablet RxNorm: 0595280 1/2 Tablet(s) PO Q6 12/27/2017 Inactive Lasix 20 mg tablet RxNorm: 856749 TAKE 1 TABLET BY MOUTH TWICE DAILY 10/29/2017 No Stop Date Active fentanyl 100 mcg/hr transdermal patch RxNorm: 348314 1 Patch TD Q72H use with 25mcg/hr patch 10/29/2017 11/26/2017 Inactive fentanyl 25 mcg/hr transdermal patch RxNorm: 715215 1 Patch TD Q72H use with 100mcg patch for a total of 125mcg daily 10/29/2017 11/26/2017 Inactive pantoprazole 40 mg tablet,delayed release RxNorm: 776070 Tablet(s) Take 1 tablet by mouth daily 10/21/2017 04/18/2018 Active - Ref: [id number] potassium chloride ER 10 mEq capsule,extended release RxNorm: 226442 TAKE 1 CAPSULE BY MOUTH TWICE DAILY WHEN TAKING LASIX (FUROSEMIDE) 10/09/2017 11/26/2017 Inactive fentanyl 25 mcg/hr transdermal patch RxNorm: 144960 1 Patch TD Q72H use with 100mcg patch for a total of 125mcg daily 10/01/2017 10/28/2017 Inactive fentanyl 100 mcg/hr transdermal patch RxNorm: 077709 1 Patch TD Q72H use with 25mcg/hr patch 10/01/2017 10/28/2017 Inactive potassium chloride ER 10 mEq tablet,extended release(part/ cryst) RxNorm: 8356561 1 Capsule(s) PO BID when taking lasix 09/22/2017 01/04/2018 Inactive fentanyl 100 mcg/hr transdermal patch RxNorm: 665546 1 Patch TD Q72H use with 25mcg/hr patch 08/31/2017 09/29/2017 Inactive Kenalog 40 mg/mL suspension for injection RxNorm: 6310833 1 Milliliter(s) Inj 08/31/2017 08/31/2017 Inactive fentanyl 25 mcg/hr transdermal patch RxNorm: 849836 1 Patch TD Q72H use with 100mcg patch for a total of 125mcg daily 08/31/2017 09/29/2017 Inactive oxycodone 30 mg tablet RxNorm: 6081205 1/2 Tablet(s) PO Q6 04/201710/28/2017 Inactive cyanocobalamin (vit B-12) 1,000 mcg/mL injection solution RxNorm: 653276 1 Milliliter(s) Inj monthly 08/21/201708/15 Active please provide her with syringe/needle for injection cyanocobalamin (vit B-12) 1,000 mcg/mL injection solution RxNorm: 219948 1 Milliliter(s) Inj monthly 08/21/201708/20 Inactive please provide her with syringe/needle for injection Kenalog 40 mg/mL suspension for injection RxNorm: 9385584 2 Milliliter(s) Inj 1mL in each shoulder 08/21/2017 08/21/2017 Inactive cyanocobalamin (vit B-12) 1,000 mcg/mL injection solution RxNorm: 686630 1 Milliliter(s) Inj monthly 08/21/201708/20 Inactive please provide her with syringe/needle for injection Kenalog 40 mg/mL suspension for injection RxNorm: 3610830 2 Milliliter(s) Inj UD 08/12/2017 08/12/2017 Inactive fentanyl 25 mcg/hr transdermal patch RxNorm: 016934 1 Patch TD Q72H use with 100mcg patch for a total of 125mcg daily 08/05/2017 08/30/2017 Inactive fentanyl 100 mcg/hr transdermal patch RxNorm: 083108 1 Patch TD Q72H use with 25mcg/hr patch 08/05/2017 08/30/2017 Inactive Kenalog 40 mg/mL suspension for injection RxNorm: 4948221 2 Milliliter(s) Inj 1mL per shoulder 08/05/2017 08/05/2017 Inactive clindamycin HCl 150 mg capsule RxNorm: 516193 1 Capsule(s) PO QID Dr Shultz prescribed 07/23/2017 07/29/2017 Inactive prednisone 5 mg tablet RxNorm: 714927 1 Tablet(s) PO daily 11/201707/03/2018 Active fentanyl 25 mcg/hr transdermal patch RxNorm: 779971 1 Patch TD Q72H use with 100mcg patch for a total of 125mcg daily 07/01/2017 07/30/2017 Inactive Lasix 20 mg tablet RxNorm: 256380 1 Tablet(s) PO BID 201710/28/2017 Inactive fentanyl 100 mcg/hr transdermal patch RxNorm: 417081 1 Patch TD Q72H use with 25mcg/hr patch 07/01/2017 07/30/2017 Inactive potassium chloride ER 10 mEq capsule,extended release RxNorm: 348686 1 Capsule(s) PO BID when taking lasix 07/01/20172017 Inactive oxycodone 30 mg tablet RxNorm: 9655173 1/2 Tablet(s) PO Q6 08/22/2017 Inactive fentanyl 100 mcg/hr transdermal patch RxNorm: 551380 1 Patch TD Q72H use with 25mcg/hr patch 05/07/2017 06/05/2017 Inactive fentanyl 25 mcg/hr transdermal patch RxNorm: 877957 1 Patch TD Q72H use with 100mcg patch for a total of 125mcg daily 05/07/2017 06/05/2017 Inactive fentanyl 100 mcg/hr transdermal patch RxNorm: 015000 1 Patch TD Q72H 04/08/2017 05/06/2017 Inactive fentanyl 25 mcg/hr transdermal patch RxNorm: 573455 1 Patch TD Q72H use with 100mcg patch for a total of 125mcg daily 04/08/2017 05/06/2017 Inactive Kenalog 40 mg/mL suspension for injection RxNorm: 5549445 1.5 Milliliter(s) Inj 04/02/2017 04/02/2017 Inactive fentanyl 100 mcg/hr transdermal patch RxNorm: 192670 1 Patch TD Q72H 03/12/2017 04/07/2017 Inactive fentanyl 25 mcg/hr transdermal patch RxNorm: 552253 1 Patch TD Q72H use with 100mcg patch for a total of 125mcg daily 03/12/2017 04/07/2017 Inactive oxycodone 30 mg tablet RxNorm: 4126249 1/2 Tablet(s) PO Q6 09/201704/07/2017 Inactive cyanocobalamin (vit B-12) 1,000 mcg/mL injection syringe RxNorm: 359399 1 Milliliter(s) Inj monthly 02/16/2017 No Stop Date Active please provide with supplys needed for injection fentanyl 100 mcg/hr transdermal patch RxNorm: 492168 1 Patch TD Q72H 02/06/2017 03/07/2017 Inactive Myrbetriq 50 mg tablet,extended release RxNorm: 0271514 1 Tablet(s) PO QPM 12/11/2016 07/22/2017 Inactive oxycodone 30 mg tablet RxNorm: 1698445 1/2 Tablet(s) PO Q6 10/201601/06/2017 Inactive naproxen 500 mg tablet RxNorm: 055657 1 Tablet(s) PO BID Take 1 tablet by mouth two times daily as needed 12/08/201607/08 Inactive - First Attempt Ref: [id number] Myrbetriq 50 mg tablet,extended release RxNorm: 0142255 1 Tablet(s) PO QPM 11/17/2016 12/10/2016 Inactive fentanyl 100 mcg/hr transdermal patch RxNorm: 867924 1 Patch TD Q72H 11/12/2016 12/11/2016 Inactive Vesicare 10 mg tablet RxNorm: 325014 1 Tablet(s) PO QPM 201611/18/2016 Inactive oxycodone 10 mg tablet RxNorm: 8618140 1-2 Tablet(s) PO Q4 PRN as needed to take between 30mg dose if needed for extra pain control 201612/07/2016 Inactive fentanyl 75 mcg/hr transdermal patch RxNorm: 347634 1 TD Q72H 10/22/2016 11/10/2016 Inactive oxycodone 10 mg tablet RxNorm: 6172242 1-2 Tablet(s) PO Q4 PRN as needed to take between 30mg dose if needed for extra pain control 201611/04/2016 Inactive Kenalog 40 mg/mL suspension for injection RxNorm: 7251632 1 Milliliter(s) Inj 10/02/2016 10/02/2016 Inactive Kenalog 40 mg/mL suspension for injection RxNorm: 8461773 1 Milliliter(s) Inj 09/12/2016 09/12/2016 Inactive cyclobenzaprine 5 mg tablet RxNorm: 350683 1 Tablet(s) PO Q8 as needed muscle spasms 09/11/2016 07/22/2017 Inactive prednisone 10 mg tablets in a dose pack RxNorm: 757699 1 Tablet(s) PO UD 09/09/2016 06/23/2017 Inactive potassium chloride ER 10 mEq capsule,extended release RxNorm: 092738 1 Capsule(s) PO BID as needed when taking lasix 08/26/2016 06/30/2017 Inactive Lasix 20 mg tablet RxNorm: 801908 1 Tablet(s) PO BID daily x 10 days then as needed edema 08/26/2016 12/23/2016 Inactive naproxen 500 mg tablet RxNorm: 844806 Take 1 tablet by mouth two times daily as needed 08/18/2016 11/15/2016 Inactive - First Attempt Ref: [id number] Lasix 20 mg tablet RxNorm: 667003 1 Tablet(s) PO QAM daily x 10 days then as needed edema 08/18/2016 08/25/2016 Inactive Vesicare 5 mg tablet RxNorm: 005181 1 Tablet(s) PO QPM 201611/04/2016 Inactive potassium chloride ER 10 mEq capsule,extended release RxNorm: 291357 1 Capsule(s) PO QAM as needed when taking lasix 08/18/2016 08/25/2016 Inactive Myrbetriq 25 mg tablet,extended release RxNorm: 6169372 1 Tablet(s) PO QHS 07/14/2016 07/29/2016 Inactive pantoprazole 40 mg tablet,delayed release RxNorm: 025982 Take 1 tablet by mouth daily 06/30/2016 12/26/2016 Inactive - Ref: [id number] Embeda 20 mg-0.8 mg capsule, extend release, oral only RxNorm: 393538 1 Capsule(s ) PO daily 06/04/2016 06/03/2016 Inactive Embeda 20 mg-0.8 mg capsule, extend release, oral only RxNorm: 923572 1 Capsule(s ) PO daily 06/04/2016 07/01/2016 Inactive oxycodone 10 mg tablet RxNorm: 4948127 1 Tablet(s) PO QID as needed to take between 30mg dose if needed for extra pain control 201606/10/2016 Inactive oxycodone 30 mg tablet RxNorm: 9176602 1 Tablet(s) PO Q6 201611/04/2016 Inactive cyanocobalamin (vit B-12) 1,000 mcg/mL injection solution RxNorm: 079031 1 Milliliter(s) Inj monthly 02/22/201602/15 Inactive she also needs syringes/ needles for this solution QS oxycodone 30 mg tablet RxNorm: 4223385 1 Tablet(s) PO Q6 201503/19/2016 Inactive oxycodone 10 mg tablet RxNorm: 8700190 1 Tablet(s) PO QID as needed to take between 30mg dose if needed for extra pain control 201503/19/2016 Inactive oxycodone 10 mg tablet RxNorm: 5551392 1 Tablet(s) PO QID as needed to take between 30mg dose if needed for extra pain control 201502/18/2016 Inactive oxycodone 30 mg tablet RxNorm: 4660341 1 Tablet(s) PO Q6 201502/18/2016 Inactive pantoprazole 40 mg tablet,delayed release RxNorm: 030847 Take 1 tablet by mouth daily 01/22/2016 06/29/2016 Inactive - First Attempt Ref: [id number] oxycodone 30 mg tablet RxNorm: 0165894 1 Tablet(s) PO Q6 201501/28/2016 Inactive oxycodone 10 mg tablet RxNorm: 1946037 1 Tablet(s) PO QID as needed take between 20mg dose if needed for extra pain control 11/07/2015 12/06/2015 Inactive oxycodone 20 mg tablet RxNorm: 0360149 1 Tablet(s) PO Q6 as needed 11/07/2015 12/31/2015 Inactive doxycycline hyclate 100 mg tablet RxNorm: 289748 1 Tablet(s) PO BID 11/01/2015 11/10/2015 Inactive potassium chloride ER 10 mEq capsule,extended release RxNorm: 434043 1 Capsule(s) PO TIW as needed when taking lasix 09/04/2015 08/17/2016 Inactive Voltaren 1 % topical gel RxNorm: 651033 2 Gram(s) TOP QID 08/2909/03/2015 Inactive pa approved Voltaren 1 % topical gel RxNorm: 872162 2 Gram(s) TOP QID 08/0808/29/2015 Inactive naproxen 500 mg tablet RxNorm: 446341 1 Tablet(s) PO BID 201508/17/2016 Inactive naproxen 500 mg tablet RxNorm: 219519 1 Tablet(s) PO BID 201508/08/2015 Inactive doxycycline hyclate 100 mg tablet RxNorm: 778152 1 Tablet(s) PO BID do not take calcium/vitamin d while on antibiotic 07/18/2015 07/31/2015 Inactive Vitamin D2 50,000 unit capsule RxNorm: 359207 1 Capsule(s) PO QW 07/02/2015 11/18/2015 Inactive Premarin 0.3 mg tablet RxNorm: 031100 1 Tablet(s) PO daily 12/201505/09/2015 Inactive Premarin 0.3 mg tablet RxNorm: 017754 1 Tablet(s) PO daily 12/201503/17/2016 Inactive simvastatin 40 mg tablet RxNorm: 022107 1 Tablet(s) PO daily 03/17/2016 Inactive spironolactone 25 mg tablet RxNorm: 849094 TAKE ONE TABLET BY MOUTH DAILY 05/07/2015 05/27/2016 Inactive potassium chloride ER 10 mEq capsule,extended release RxNorm: 022354 1 Capsule(s) PO TIW as needed when taking lasix 04/17/2015 09/03/2015 Inactive alendronate 70 mg tablet RxNorm: 493514 1 Tablet(s) PO weekly QW 04/17/2015 07/01/2015 Inactive Vitamin D2 50,000 unit capsule RxNorm: 106232 1 Capsule(s) PO QW 03/30/2015 06/27/2015 Inactive Vitamin D2 50,000 unit capsule RxNorm: 877067 1 Capsule(s) PO QW 03/21/2015 03/29/2015 Inactive cyanocobalamin (vit B-12) 1,000 mcg/mL injection solution RxNorm: 597220 1 Milliliter(s) Inj monthly 03/19/201502/20 Inactive cyanocobalamin (vit B-12) 1,000 mcg/mL injection solution RxNorm: 985284 1 Milliliter(s) Inj monthly 03/16/201503/18 Inactive cyanocobalamin (vit B-12) 1,000 mcg/mL injection solution RxNorm: 603422 1 Milliliter(s) Inj monthly 03/16/201503/15 Inactive pantoprazole 40 mg tablet,delayed release RxNorm: 359777 1 Tablet(s) PO daily 03/05/2015 01/21/2016 Inactive Lasix 20 mg tablet RxNorm: 443982 1 Tablet(s) PO TIW as needed edema 02/08/2015 02/02/2016 Inactive oxycodone 10 mg tablet RxNorm: 4756586 1 Tablet(s) PO QID as needed take between 20mg dose if needed for extra pain control 11/09/2014 12/08/2014 Inactive oxycodone 20 mg tablet RxNorm: 7627496 1 Tablet(s) PO Q6 as needed 10/25/2014 11/06/2015 Inactive doxycycline hyclate 100 mg tablet RxNorm: 393100 1 Tablet(s) PO BID 10/23/2014 11/19/2014 Inactive Cipro 500 mg tablet RxNorm: 715010 1 Tablet(s) PO BID 201410/16/2014 Inactive Cipro 500 mg tablet RxNorm: 292249 1 Tablet(s) PO BID 201410/09/2014 Inactive oxycodone 20 mg tablet RxNorm: 8682767 1 Tablet(s) PO Q6 as needed 09/25/2014 10/24/2014 Inactive Lasix 20 mg tablet RxNorm: 417899 1 Tablet(s) PO TIW as needed edema 09/14/2014 01/11/2015 Inactive potassium chloride ER 10 mEq capsule,extended release RxNorm: 714364 1 Capsule(s) PO TIW as needed when taking lasix 09/14/2014 01/11/2015 Inactive doxycycline hyclate 100 mg tablet RxNorm: 941024 1 Tablet(s) PO BID 09/05/2014 09/14/2014 Inactive doxycycline hyclate 100 mg tablet RxNorm: 855765 1 Tablet(s) PO BID 09/05/2014 09/04/2014 Inactive oxycodone 20 mg tablet RxNorm: 0204441 1 Tablet(s) PO Q6 as needed 08/29/2014 09/24/2014 Inactive spironolactone 25 mg tablet RxNorm: 051425 1 Tablet(s) PO daily 08/11/2014 03/08/2015 Inactive oxycodone 20 mg tablet RxNorm: 7854529 1 Tablet(s) PO Q6 as needed 08/02/2014 08/28/2014 Inactive Vitamin D3 2,000 unit tablet RxNorm: 921877 1 Tablet(s) PO daily 07/14/2014 No Stop Date Active Vitamin D2 50,000 unit capsule RxNorm: 067915 1 Capsule(s) PO QW 07/14/2014 10/11/2014 Inactive Vitamin D2 50,000 unit capsule RxNorm: 834236 1 Capsule(s) PO QW 07/14/2014 07/13/2014 Inactive Prolia 60 mg/mL subcutaneous syringe RxNorm: 887286 Milliliter(s) SQ EVERY 6 MONTHS No Start Date Active Carafate 1 gram tablet RxNorm: 205746 1 Tablet(s) PO BID No Start Date Active Miralax oral RxNorm: 637177 oral No Start Date Active Stool Softener oral RxNorm: 72184 oral No Start Date Active Calcium + Vitamin D oral RxNorm: 4018 oral No Start Date Active naproxen 500 mg tablet RxNorm: 812143 1 Tablet(s) PO BID No Start Date 08/05/2015 Inactive oxycodone 20 mg tablet RxNorm: 2264900 1 Tablet(s) PO Q6 as needed No Start Date 08/01/2014 Inactive aspirin 81 mg tablet RxNorm: 409547 1 Tablet(s) PO daily No Start Date 07/22/2017 Inactive simvastatin 40 mg tablet RxNorm: 436145 1 Tablet(s) PO daily No Start Date 05/09/2015 Inactive cyanocobalamin (vit B-12) 1,000 mcg/mL injection syringe RxNorm: 201165 1 Inj monthly No Start Date 02/15/2017 Inactive Reglan 10 mg tablet RxNorm: 355138 1 Tablet(s) PO as needed No Start Date 07/29/2016 Inactive alendronate 70 mg tablet RxNorm: 436153 1 Tablet(s) PO weekly No Start Date 04/16/2015 Inactive Protonix 40 mg tablet,delayed release RxNorm: 213942 1 Tablet(s) PO daily No Start Date 03/04/2015 Inactive cyclobenzaprine 5 mg tablet RxNorm: 865500 1 Tablet(s) PO Q8 as needed muscle spasms No Start Date 09/10/2016 Inactive Vitamin D3 1,000 unit capsule RxNorm: 934685 1 Capsule(s) PO daily No Start Date 07/13/2014 Inactive Cardizem CD 360 mg capsule,extended release RxNorm: 631661 1 Capsule(s) PO daily No Start Date 01/04/2018 Inactive prednisone 10 mg tablets in a dose pack RxNorm: 204767 1 Tablet(s) PO UD No Start Date 09/08/2016 Inactive Medication Administered Medication Codes Instructions Start Date Status Kenalog 40 mg/mL suspension for injection RxNorm: 9791412 1Milliliter 08/31/2017 No longer Active Kenalog 40 mg/mL suspension for injection RxNorm: 5554084 2Milliliter 08/21/2017 No longer Active Kenalog 40 mg/mL suspension for injection RxNorm: 0908291 2MilliliterUD 08/12/2017 No longer Active Kenalog 40 mg/mL suspension for injection RxNorm: 8439658 2Milliliter 08/05/2017 No longer Active Kenalog 40 mg/mL suspension for injection RxNorm: 1628744 1.5Milliliter 04/02/2017 No longer Active Kenalog 40 mg/mL suspension for injection RxNorm: 4539594 1Milliliter 10/02/2016 No longer Active Kenalog 40 mg/mL suspension for injection RxNorm: 3799008 1Milliliter 09/12/2016 No longer Active Immunizations Vaccine [...] Tibc Ord40 Fe-%Sat 21.7 % 10/22/2017 Prealbumin 936986 PREALBUMIN 33 mg/dL 10/21/2017 Comp Metabolic Xmn094 NA 134 mEq/L 10/20/2017 Comp Metabolic Gqi738 K 3.7 mEq/L 10/20/2017 Comp Metabolic Gfq610 CL 93 mEq/L 10/20/2017 Comp Metabolic Lxh817 CO2 29.0 mEq/L 10/20/2017 Comp Metabolic Qny576 ANION GAP 16 10/20/2017 Comp Metabolic Dax499 GLUCOSE 115 mg/dL 10/20/2017 Comp Metabolic Dhx312 Creat 0.8 mg/dL 10/20/2017 Comp Metabolic Baf892 eGFR 73 ml/min/1.73m2 10/20/2017 Comp Metabolic Che514 BUN 46 mg/dL 10/20/2017 Comp Metabolic Sbc018 B/C Ratio 57.5 Ratio 10/20/2017 Comp Metabolic Zag129 CALCIUM 8.7 mg/dL 10/20/2017 Comp Metabolic Osg368 ALK PHOS 56 U/L 10/20/2017 Comp Metabolic Glj064 AST(SGOT) 19 U/L 10/20/2017 Comp Metabolic Mpl867 ALT(SGPT) 23 U/L 10/20/2017 Comp Metabolic Ubz290 BILI T 0.6 mg/dL 10/20/2017 Comp Metabolic Zdk920 ALBUMIN 4.0 g/dL 10/20/2017 Comp Metabolic Whn806 TPRO 6.6 g/dL 10/20/2017 Comp Metabolic Qix735 GLOB 2.7 g/dL 10/20/2017 Comp Metabolic Glp404 A/G Ratio 1.5 Ratio 10/20/2017 Comp Metabolic Cyy378 Osmo 281 mOsmo 10/20/2017 Tsh Ord6 TSH [...] 18.4 % 10/20/2017 Cbc With Differential Ord2 Wilkinson% 9.9 % 10/20/2017 Cbc With Differential Ord2 [...] 1.15 K/ul 10/20/2017 Cbc With Differential Ord2 Wilkinson ABS# 0.6 K/ul 10/20/2017 Cbc With Differential Ord2 Eos ABS# 0.0 K/ul 10/20/2017 Cbc With Differential Ord2 Baso ABS# 0.0 K/ul 10/20/2017 Iron Ord72 Iron 75 ug/dl 10/20/2017 Luann Reflex Profile [id number] LUANN (BRYANNA) SCREEN NONE DETECTED 01/12/2017 Comp Metabolic Gfy921 NA 129 mEq/L 01/08/2017 Comp Metabolic Awk108 K 3.9 mEq/L 01/08/2017 Comp Metabolic Ieg208 CL 94 mEq/L 01/08/2017 Comp Metabolic Yqm730 CO2 31.0 mEq/L 01/08/2017 Comp Metabolic Ymt950 ANION GAP 8 01/08/2017 Comp Metabolic Cdw408 GLUCOSE 103 mg/dL 01/08/2017 Comp Metabolic Lmp730 Creat 0.9 mg/dL 01/08/2017 Comp Metabolic Htw496 eGFR 61 ml/min/1.73m2 01/08/2017 Comp Metabolic Jxv730 BUN 29 mg/dL 01/08/2017 Comp Metabolic Ebx661 B/C Ratio 30.9 Ratio 01/08/2017 Comp Metabolic Pzj545 CALCIUM 8.5 mg/dL 01/08/2017 Comp Metabolic Jxq590 ALK PHOS 58 U/L 01/08/2017 Comp Metabolic Iwt045 AST(SGOT) 17 U/L 01/08/2017 Comp Metabolic Cyh982 ALT(SGPT) 10 U/L 01/08/2017 Comp Metabolic Hzy279 BILI T 0.4 mg/dL 01/08/2017 Comp Metabolic Zmm201 ALBUMIN 3.0 g/dL 01/08/2017 Comp Metabolic Tlf933 TPRO 5.5 g/dL 01/08/2017 Comp Metabolic Dcg020 GLOB 2.5 g/dL 01/08/2017 Comp Metabolic Piz337 A/G Ratio 1.2 Ratio 01/08/2017 Comp Metabolic Nxe385 Osmo 265 mOsmo 01/08/2017 Cbc With Differential [...] 102.2 fl 01/08/2017 Cbc With Differential Ord2 Wilkinson% 12.2 % 01/08/2017 Cbc With Differential Ord2 [...] 1.62 K/ul 01/08/2017 Cbc With Differential Ord2 Wilkinson ABS# 0.9 K/ul 01/08/2017 Cbc With Differential [...] 33.1 pg 11/10/2016 Cbc With Differential Ord2 Wilkinson% 9.1 % 11/10/2016 Cbc With Differential Ord2 [...] 0.78 K/ul 11/10/2016 Cbc With Differential Ord2 Wilkinson ABS# 0.5 K/ul 11/10/2016 Cbc With Differential [...] 30.3 pg 10/07/2016 Cbc With Differential Ord2 Wilkinson% 11.8 % 10/07/2016 Cbc With Differential Ord2 [...] 1.54 K/ul 10/07/2016 Cbc With Differential Ord2 Wilkinson ABS# 1.0 K/ul 10/07/2016 Cbc With Differential Ord2 Eos ABS# 0.1 K/ul 10/07/2016 Cbc With Differential Ord2 Baso ABS# 0.0 K/ul 10/07/2016 Tibc Ord40 Iron 13 ug/dl 08/26/2016 Tibc Ord40 UIBC 283 ug/dL 08/26/2016 Tibc Ord40 TIBC 296 ug/dL 08/26/2016 Tibc Ord40 Fe-%Sat 4.4 % 08/26/2016 Ferritin Ord22 FERRITIN 28.8 ng/mL 08/26/2016 Comp Metabolic Mhg850 NA 129 mEq/L 08/26/2016 Comp Metabolic Vzx935 K 3.9 mEq/L 08/26/2016 Comp Metabolic Wnn652 CL 93 mEq/L 08/26/2016 Comp Metabolic Anq458 CO2 30.0 mEq/L 08/26/2016 Comp Metabolic Ajf703 ANION GAP 10 08/26/2016 Comp Metabolic Vjj144 GLUCOSE 87 mg/dL 08/26/2016 Comp Metabolic Wwb742 Creat 0.6 mg/dL 08/26/2016 Comp Metabolic Cuf976 eGFR 96 ml/min/1.73m2 08/26/2016 Comp Metabolic Mat186 BUN 17 mg/dL 08/26/2016 Comp Metabolic Gep782 B/C Ratio 27.0 Ratio 08/26/2016 Comp Metabolic Bzl612 CALCIUM 7.6 mg/dL 08/26/2016 Comp Metabolic Had826 ALK PHOS 72 U/L 08/26/2016 Comp Metabolic Nfr257 AST(SGOT) 20 U/L 08/26/2016 Comp Metabolic Juv701 ALT(SGPT) 12 U/L 08/26/2016 Comp Metabolic Mol706 BILI T 0.3 mg/dL 08/26/2016 Comp Metabolic Ras171 ALBUMIN 2.7 g/dL 08/26/2016 Comp Metabolic Ytq045 TPRO 5.3 g/dL 08/26/2016 Comp Metabolic Dbq315 GLOB 2.6 g/dL 08/26/2016 Comp Metabolic Nri727 A/G Ratio 1.1 Ratio 08/26/2016 Comp Metabolic Ggl067 Osmo 260 mOsmo 08/26/2016 Cbc With Differential [...] 88.7 fl 08/26/2016 Cbc With Differential Ord2 Wilkinson% 9.6 % 08/26/2016 Cbc With Differential Ord2 [...] 1.83 K/ul 08/26/2016 Cbc With Differential Ord2 Wilkinson ABS# 1.0 K/ul 08/26/2016 Cbc With Differential Ord2 Eos ABS# 0.1 K/ul 08/26/2016 Cbc With Differential Ord2 Baso ABS# 0.0 K/ul 08/26/2016 Magnesium Ord90 Mag 1.9 mg/dL 08/26/2016 Vitamin D 25 Oh [id number] VITAMIN D, 25 HYDROXY 34.59 ng/mL Sed Rate Ord21 ESR 20 mm/hr 11/19/2015 Comp Metabolic Gpa634 NA 131 mEq/L 08/22/2015 Comp Metabolic Rhu425 K 4.2 mEq/L 08/22/2015 Comp Metabolic Oed939 CL 98 mEq/L 08/22/2015 Comp Metabolic Pvm032 CO2 27.0 mEq/L 08/22/2015 Comp Metabolic Hbw112 ANION GAP 10 08/22/2015 Comp Metabolic Qoa290 GLUCOSE 80 mg/dL 08/22/2015 Comp Metabolic Nbq725 Creat 0.5 mg/dL 08/22/2015 Comp Metabolic Nfy581 eGFR 120 ml/min/1.73m2 08/22/2015 Comp Metabolic Nml324 BUN 13 mg/dL 08/22/2015 Comp Metabolic Vwp569 B/C Ratio 25.0 Ratio 08/22/2015 Comp Metabolic Cnr843 CALCIUM 8.2 mg/dL 08/22/2015 Comp Metabolic Oxs193 ALK PHOS 49 U/L 08/22/2015 Comp Metabolic Tyn896 AST(SGOT) 18 U/L 08/22/2015 Comp Metabolic Msw022 ALT(SGPT) 11 U/L 08/22/2015 Comp Metabolic Ijv942 BILI T 0.5 mg/dL 08/22/2015 Comp Metabolic Zzi333 ALBUMIN 3.5 g/dL 08/22/2015 Comp Metabolic Oql441 TPRO 6.2 g/dL 08/22/2015 Comp Metabolic Usp599 GLOB 2.7 g/dL 08/22/2015 Comp Metabolic Ikd483 A/G Ratio 1.3 Ratio 08/22/2015 Comp Metabolic Ciy678 Osmo 262 mOsmo 08/22/2015 Cbc With Differential [...] 21.4 % 08/22/2015 Cbc With Differential Ord2 Wilkinson% 10.3 % 08/22/2015 Cbc With Differential Ord2 [...] 1.39 K/ul 08/22/2015 Cbc With Differential Ord2 Wilkinson ABS# 0.7 K/ul 08/22/2015 Cbc With Differential Ord2 Eos ABS# 0.1 K/ul 08/22/2015 Cbc With Differential Ord2 Baso ABS# 0.0 K/ul 08/22/2015 Tsh Ord6 hTSH II 2.19 uIU/mL 08/22/2015 Vitamin D 25 Oh [id number] VITAMIN D, 25 HYDROXY 55.10 ng/mL Lipid [...] 1.5 Ratio 03/16/2015 Vitamin D 25 Oh [id number] VITAMIN D, 25 HYDROXY 28.94 ng/mL Cbc [...] 28.1 pg 03/16/2015 Cbc With Differential Ord2 Wilkinson% 11.2 % 03/16/2015 Cbc With Differential Ord2 [...] 2.37 K/ul 03/16/2015 Cbc With Differential Ord2 Wilkinson ABS# 0.8 K/ul 03/16/2015 Cbc With Differential Ord2 Eos ABS# 0.1 K/ul 03/16/2015 Cbc With Differential Ord2 Baso ABS# 0.0 K/ul 03/16/2015 Cbc With Differential Ord2 New Analyzer Notice Please note new ref ranges starting 03-14-2015 due to implemntation of new five part differential hematolgy analyzer. 03/16/2015 Comp Metabolic Gbd764 NA 131 mEq/L 03/16/2015 Comp Metabolic Ilt606 K 4.1 mEq/L 03/16/2015 Comp Metabolic Lqy616 CL 94 mEq/L 03/16/2015 Comp Metabolic Uah072 CO2 28.0 mEq/L 03/16/2015 Comp Metabolic Itk783 ANION GAP 13 03/16/2015 Comp Metabolic Wwm389 GLUCOSE 96 mg/dL 03/16/2015 Comp Metabolic Xjb184 Creat 0.7 mg/dL 03/16/2015 Comp Metabolic Ziu470 eGFR 80 ml/min/1.73m2 03/16/2015 Comp Metabolic Fmq220 BUN 16 mg/dL 03/16/2015 Comp Metabolic Pza972 B/C Ratio 21.6 Ratio 03/16/2015 Comp Metabolic Bcc557 CALCIUM 8.9 mg/dL 03/16/2015 Comp Metabolic Xux851 ALK PHOS 44 U/L 03/16/2015 Comp Metabolic Qkx173 AST(SGOT) 22 U/L 03/16/2015 Comp Metabolic Cwl762 ALT(SGPT) 14 U/L 03/16/2015 Comp Metabolic Tbe615 BILI T 0.5 mg/dL 03/16/2015 Comp Metabolic Eds828 ALBUMIN 3.4 g/dL 03/16/2015 Comp Metabolic Whd974 TPRO 6.0 g/dL 03/16/2015 Comp Metabolic Bvz630 GLOB 2.6 g/dL 03/16/2015 Comp Metabolic Icp092 A/G Ratio 1.3 Ratio 03/16/2015 Comp Metabolic Gjy052 Osmo 264 mOsmo 03/16/2015 Comp Metabolic Zfi564 NA 129 mEq/L 11/09/2014 Comp Metabolic Kjs408 K 4.2 mEq/L 11/09/2014 Comp Metabolic Agn267 CL 96 mEq/L 11/09/2014 Comp Metabolic Gqv588 CO2 27.0 mEq/L 11/09/2014 Comp Metabolic Qoz355 ANION GAP 10 11/09/2014 Comp Metabolic Pds715 GLUCOSE 144 mg/dL 11/09/2014 Comp Metabolic Pvv430 Creat 0.8 mg/dL 11/09/2014 Comp Metabolic Flk133 eGFR 73 ml/min/1.73m2 11/09/2014 Comp Metabolic Rig893 BUN 22 mg/dL 11/09/2014 Comp Metabolic Wkj773 B/C Ratio 27.5 Ratio 11/09/2014 Comp Metabolic Vlb597 CALCIUM 8.6 mg/dL 11/09/2014 Comp Metabolic Vbb312 ALK PHOS 55 U/L 11/09/2014 Comp Metabolic Xod016 AST(SGOT) 27 U/L 11/09/2014 Comp Metabolic Dfm351 ALT(SGPT) 18 U/L 11/09/2014 Comp Metabolic Brg249 BILI T 0.5 mg/dL 11/09/2014 Comp Metabolic Xyx579 ALBUMIN 3.0 g/dL 11/09/2014 Comp Metabolic Thm973 TPRO 5.4 g/dL 11/09/2014 Comp Metabolic Ifx972 GLOB 2.4 g/dL 11/09/2014 Comp Metabolic Sau855 A/G Ratio 1.3 Ratio 11/09/2014 Comp Metabolic Luu900 Osmo 265 mOsmo 11/09/2014 Magnesium Ord90 Mag [...] clear 03/12/2017 None Full Exam - General 1995 Ears/Nose/Throat [...] accomodation 12/08/2016 None Full Exam - General 1995 Ears/Nose/Throat otoscopic exam Overall: tympanic membranes clear 12/08/2016 None Full Exam - General 1995 Ears/Nose/Throat otoscopic exam External auditory canal: complete cerumen impaction 12/08/2016 None Full Exam - General 1995 Ears/Nose/Throat lips/teeth/gingiva Overall: benign lips 12/08/2016 None Full Exam - General 1995 Ears/Nose/Throat lips/teeth/gingiva Overall: normal dentition 12/08/2016 None Full Exam - General 1994 Ears/Nose/Throat oral cavity/pharynx/larynx Overall: oral mucosa clear 12/08/2016 None Full Exam - General 1995 Ears/Nose/Throat oral cavity/pharynx/larynx Overall: oropharyngeal mucosa clear 12/08/2016 None Full Exam - General 1995 Ears/Nose/Throat oral cavity/pharynx/larynx Overall: hypopharynx benign 12/08/2016 None Full Exam - General 1995 Ears/Nose/Throat oral cavity/pharynx/larynx Overall: no masses 12/08/2016 [...] dentition 11/05/2016 None Full Exam - General 1995 Ears/Nose/Throat oral cavity/pharynx/larynx Overall: oral mucosa clear 11/05/2016 None Full Exam - General 1995 [...] Procedures Procedure Codes Date DRAIN/INJECT JOINT/BURSA CPT-4: 84401 08/21/2017 DRAIN/INJECT JOINT/BURSA CPT-4: 67968 08/12/2017 TRIAMCINOLONE ACET INJ NOS CPT-4: J3301 08/12/2017 DRAIN/INJECT JOINT/BURSA CPT-4: 98834 08/05/2017 TRIAMCINOLONE ACET INJ NOS CPT-4: J3301 08/05/2017 DRAIN/INJECT JOINT/BURSA CPT-4: 14490 07/23/2017 DRAIN/INJECT JOINT/BURSA CPT-4: 05799 07/09/2017 TRIAMCINOLONE ACET INJ NOS CPT-4: J3301 07/09/2017 PRESCRIP TRANSMIT VIA ERX SY CPT-4: G8553 07/09/2017 DRAIN/INJECT JOINT/BURSA CPT-4: 68003 07/01/2017 TRIAMCINOLONE ACET INJ NOS CPT-4: J3301 07/01/2017 PRESCRIP TRANSMIT VIA ERX SY CPT-4: G8553 07/01/2017 DRAIN/INJECT JOINT/BURSA CPT-4: 21906 06/17/2017 DRAIN/INJECT JOINT/BURSA CPT-4: 85658 04/02/2017 TRIAMCINOLONE ACET INJ NOS CPT-4: J3301 04/02/2017 DRAIN/INJECT JOINT/BURSA CPT-4: 48993 02/06/2017 ADMIN INFLUENZA VIRUS VAC CPT-4: G0008 12/08/2016 FLU VACC PRSV FREE INC ANTIG CPT-4: 41694 12/08/2016 PRESCRIP TRANSMIT VIA ERX SY CPT-4: G8553 12/08/2016 PRESCRIP TRANSMIT VIA ERX SY CPT-4: G8553 11/17/2016 TRIAMCINOLONE ACET INJ NOS CPT-4: J3301 10/02/2016 TRIAMCINOLONE ACET INJ NOS CPT-4: J3301 09/12/2016 DRAIN/INJECT JOINT/BURSA CPT-4: 68026 09/08/2016 TRIAMCINOLONE ACET INJ NOS CPT-4: J3301 09/08/2016 PRESCRIP TRANSMIT VIA ERX SY CPT-4: G8553 08/26/2016 PRESCRIP TRANSMIT VIA ERX SY CPT-4: G8553 08/18/2016 ADMIN INFLUENZA VIRUS VAC CPT-4: G0008 11/19/2015 FLU VACC PRSV FREE INC ANTIG Formatting Model/CDA Sections, Assigned to/Luanne Elaine CPT-4: 58526Aibotpc 11/19/2015 PRESCRIP TRANSMIT VIA ERX SY CPT-4: G8553 09/04/2015 PRESCRIP TRANSMIT VIA ERX SY CPT-4: G8553 2015 PRESCRIP TRANSMIT VIA ERX SY CPT-4: G8553 07/18/2015 PRESCRIP TRANSMIT VIA ERX SY CPT-4: G8553 07/02/2015 REMOVE IMPACTED EAR WAX UNI CPT-4: 18188 04/09/2015 PRESCRIP TRANSMIT VIA ERX SY CPT-4: G8553 02/08/2015 ADMIN INFLUENZA VIRUS VAC CPT-4: G0008 01/10/2015 FLU VACC PRSV FREE INC ANTIG Formatting Model/CDA Sections, Assigned to/Luanne Elaine CPT-4: 08092Gpqvyvj 01/10/2015 ADMIN PNEUMOCOCCAL VACCINE Formatting Model/CDA Sections, Assigned to SNOMED CT: 88883054 CPT-4: S8231Qocakzu 12/11/2014 PNEUMOCOCCAL VACC [address]: 22686147 CPT-4: 02711 12/11/2014 Vital Signs Date Vital 12/24/2017 Blood Pressure 1: 115/58 Code : 8480-6 BMI: 23.5 Code : 52123-0 Heart Rate 1 : 58 bpm Height: 5'8" SpO2: 96% Weight: 152 lbs 11/30/2017 Blood Pressure 1: 122/70 Code : 8480-6 Heart Rate 1: 105 bpm Height: 5'8" SpO2: 98% Weight: 11/27/2017 Blood Pressure 1: 148/76 Code : 8480-6 Heart Rate 1: 72 bpm Height: 5'8" SpO2: 99% Weight: 11/10/2017 Blood Pressure 1: 130/76 Code : 8480-6 BMI: 27.3 Code : 90361-6 Heart Rate 1 : 98 bpm Height: [...] Code : 8480-6 BMI: 24.7 Code : 96276-1 Heart Rate 1 : 100 bpm Height: 5'8" SpO2: 95% Weight: 160 lbs 08/31/2017 Blood Pressure 1: 128/78 Code : 8480-6 BMI: 23.6 Code : 70050-3 Heart Rate 1 : 102 bpm Height: 5'8" SpO2: 96% Weight: 153 lbs 08/21/2017 Blood Pressure 1: 138/78 Code : 8480-6 Heart Rate 1: 97 bpm SpO2: 95% Weight: 156 lbs 2 oz 08/12/2017 Blood Pressure 1: 138/74 Code : 8480-6 BMI: 25.0 Code : 81380-5 Heart Rate 1 : 94 bpm Height: 5'8" SpO2: 98% Weight: 162 lbs 08/05/2017 Blood Pressure 1: 126/78 Code : 8480-6 BMI: 25.8 Code : 52957-8 Heart Rate 1 : 74 bpm Height: 5'8" SpO2: 96% Weight: 167 lbs 07/23/2017 Blood Pressure 1: 106/64 Code : 8480-6 BMI: 25.3 Code : 19834-5 Heart Rate 1 : 81 bpm Height: 5'8" SpO2: 99% Weight: 163 lbs 14 oz 07/09/2017 Blood Pressure 1: 130/68 Code : 8480-6 Heart Rate 1: 82 bpm Height: 5'8" SpO2: 98% Weight: 07/01/2017 Blood Pressure 1: 124/76 Code : 8480-6 BMI: 26.5 Code : 42855-5 Heart Rate 1 : 99 bpm Height: 5'8" SpO2: 98% Weight: 172 lbs 06/24/2017 Blood Pressure 1: 118/70 Code : 8480-6 Heart Rate 1: 103 bpm Height: 5'8" SpO2: 98% Weight: 06/17/2017 Blood Pressure 1: 110/64 Code : 8480-6 BMI: 25.0 Code : 24681-9 Heart Rate 1 : 73 bpm Height: 5'8" Weight: 162 lbs 06/01/2017 Blood Pressure 1: 158/84 Code : 8480-6 BMI: 24.4 Code : 65632-8 Heart Rate 1 : 94 bpm Height: 5'8" SpO2: 95% Weight: 158 lbs 04/02/2017 Blood Pressure 1: 164/80 Code : 8480-6 BMI: 23.1 Code : 67728-6 Heart Rate 1 : 76 bpm Height: 5'8" SpO2: 94% Weight: 150 lbs 03/12/2017 Blood Pressure 1: 130/74 Code : 8480-6 BMI: 23.0 Code : 37207-4 Heart Rate 1 : 92 bpm Height: 5'8" SpO2: 94% Weight: 149 lbs 02/06/2017 Height: Weight: 01/08/2017 Blood Pressure 1: 136/76 Code : 8480-6 BMI: 21.4 Code : 68427-1 Heart Rate 1 : 85 bpm Height: 5'8" SpO2: 98% Weight: 138 lbs 8 oz 12/08/2016 Blood Pressure 1: 132/66 Code : 8480-6 BMI: 22.2 Code : 04673-8 Heart Rate 1 : 106 bpm Height: 5'8" SpO2: 97% Weight: 144 lbs 11/17/2016 Blood Pressure 1: 146/80 Code : 8480-6 BMI: 22.4 Code : 79692-5 Heart Rate 1 : 100 bpm Height: 5'8" SpO2: 98% Weight: 145 lbs 11/10/2016 Blood Pressure 1: 122/62 Code : 8480-6 BMI: 22.2 Code : 21935-9 Height: 5'8" Weight: 144 lbs 11/05/2016 Blood Pressure 1: 146/80 Code : 8480-6 BMI: 22.2 Code : 18726-4 Heart Rate 1 : 77 bpm Height: 5'8" SpO2: 99% Weight: 144 lbs 10/07/2016 Blood Pressure 1: 132/68 Code : 8480-6 BMI: 22.8 Code : 65774-0 Heart Rate 1 : 90 bpm Height: 5'8" SpO2: 97% Weight: 148 lbs 10/02/2016 Blood Pressure 1: 166/86 Code : 8480-6 BMI: 22.8 Code : 26955-1 Heart Rate 1 : 96 bpm Height: 5'8" SpO2: 96% Weight: 148 lbs 09/12/2016 Blood Pressure 1: 130/86 Code : 8480-6 Height: Weight: 09/08/2016 Blood Pressure 1: 132/74 Code : 8480-6 BMI: 22.4 Code : 36173-6 Heart Rate 1 : 93 bpm Height: 5'8" SpO2: 99% Weight: 145 lbs 08/26/2016 Blood Pressure 1: 132/78 Code : 8480-6 BMI: 23.9 Code : 75737-5 Heart Rate 1 : 80 bpm Height: 5'8" SpO2: 94% Weight: 155 lbs 08/18/2016 Blood Pressure 1: 130/70 Code : 8480-6 BMI: 23.6 Code : 99077-0 Heart Rate 1 : 100 bpm Height: 5'8" SpO2: 94% Weight: 153 lbs 07/30/2016 Blood Pressure 1: 144/84 Code : 8480-6 BMI: 22.4 Code : 39294-7 Heart Rate 1 : 86 bpm Height: 5'8" SpO2: 97% Weight: 145 lbs 07/14/2016 Blood Pressure 1: 122/74 Code : 8480-6 BMI: 22.5 Code : 20736-5 Heart Rate 1 : 87 bpm Height: 5'8" SpO2: 97% Weight: 146 lbs 07/04/2016 Blood Pressure 1: 128/78 Code : 8480-6 BMI: 22.5 Code : 44760-0 Heart Rate 1 : 98 bpm Height: 5'8" Weight: 146 lbs 06/26/2016 Blood Pressure 1: 122/68 Code : 8480-6 BMI: 22.5 Code : 76016-6 Heart Rate 1 : 102 bpm Height: 5'8" SpO2: 98% Weight: 146 lbs 05/28/2016 Blood Pressure 1: 122/68 Code : 8480-6 BMI: 22.4 Code : 26495-2 Heart Rate 1 : 89 bpm Height: 5'8" SpO2: 97% Weight: 145 lbs 03/18/2016 Blood Pressure 1: 132/66 Code : 8480-6 BMI: 22.8 Code : 43090-6 Heart Rate 1 : 96 bpm Height: 5'8" SpO2: 98% Weight: 148 lbs 01/29/2016 Blood Pressure 1: 122/66 Code : 8480-6 BMI: 22.2 Code : 84127-3 Heart Rate 1 : 90 bpm Height: 5'8" SpO2: 99% Weight: 144 lbs 01/01/2016 Blood Pressure 1: 148/82 Code : 8480-6 BMI: 22.5 Code : 16437-9 Heart Rate 1 : 82 bpm Height: 5'8" Weight: 146 lbs 11/19/2015 Blood Pressure 1: 140/74 Code : 8480-6 BMI: 23.7 Code : 86395-4 Heart Rate 1 : 79 bpm Height: 5'8" SpO2: 96% Weight: 153 lbs 8 oz 11/01/2015 Blood Pressure 1: 118/72 Code : 8480-6 Heart Rate 1: 90 bpm Height: 5'8" SpO2: 95% 09/04/2015 Blood Pressure 1: 136/72 Code : 8480-6 BMI: 23.1 Code : 38931-3 Heart Rate 1 : 97 bpm Height: 5'8" SpO2: 98% Weight: 149 lbs 8 oz 2015 Blood Pressure 1: 144/76 Code : 8480-6 BMI: 22.8 Code : 61619-7 Heart Rate 1 : 75 bpm Height: 5'8" SpO2: 97% Weight: 148 lbs 07/18/2015 Blood Pressure 1: 132/60 Code : 8480-6 BMI: 23.1 Code : 60403-2 Heart Rate 1 : 78 bpm Height: 5'8" Weight: 150 lbs 07/02/2015 Blood Pressure 1: 156/86 Code : 8480-6 BMI: 23.0 Code : 54878-6 Heart Rate 1 : 75 bpm Height: 5'8" SpO2: 99% Weight: 149 lbs 05/31/2015 Blood Pressure 1: 136/72 Code : 8480-6 BMI: 22.7 Code : 45790-6 Heart Rate 1 : 85 bpm Height: 5'8" SpO2: 97% Weight: 147 lbs 04/09/2015 Blood Pressure 1: 118/60 Code : 8480-6 BMI: 22.7 Code : 10633-8 Heart Rate 1 : 72 bpm Height: 5'8" SpO2: 95% Weight: 147 lbs 02/08/2015 Blood Pressure 1: 138/76 Code : 8480-6 BMI: 23.1 Code : 52528-1 Heart Rate 1 : 80 bpm Height: 5'8" SpO2: 98% Weight: 150 lbs 12/11/2014 Blood Pressure 1: 120/74 Code : 8480-6 BMI: 22.1 Code : 59978-3 Heart Rate 1 : 92 bpm Height: 5'8" SpO2: 96% Weight: 143 lbs 11/09/2014 Blood Pressure 1: 100/64 Code : 8480-6 BMI: 21.6 Code : 96365-2 Heart Rate 1 : 88 bpm Height: 5'8" Weight: 140 lbs 10/23/2014 Blood Pressure 1: 138/82 Code : 8480-6 BMI: 23.6 Code : 55671-0 Heart Rate 1 : 86 bpm Height: 5'8" Weight: 153 lbs 10/16/2014 Blood Pressure 1: 128/60 Code : 8480-6 BMI: 23.3 Code : 76282-0 Heart Rate 1 : 91 bpm Height: 5'8" SpO2: 99% Weight: 151 lbs 10/09/2014 Blood Pressure 1: 120/60 Code : 8480-6 BMI: 23.0 Code : 50246-8 Heart Rate 1 : 96 bpm Height: 5'8" SpO2: 97% Weight: 149 lbs 09/14/2014 Blood Pressure 1: 132/72 Code : 8480-6 BMI: 22.1 Code : 06660-5 Heart Rate 1 : 84 bpm Height: 5'8" SpO2: 97% Weight: 143 lbs 08/11/2014 Blood Pressure 1: 134/74 Code : 8480-6 BMI: 24.1 Code : 66098-1 Heart Rate 1 : 88 bpm Height: 5'8" Weight: 156 lbs 07/12/2014 Blood Pressure 1: 122/62 Code : 8480-6 BMI: 22.7 Code : 49819-0 Heart Rate 1 : 76 bpm Height: [...] Dr. Blancas in [place] and Neurosurgeon in [place] in the past neck pain Significant Medical Conditions spinal stenosis 07/12/2014 has osteoarthritis Advance Directives No Advance Directive data Encounters Encounter Performer Location Codes Date ([id number]) [id number] EST. PATIENT, LEVEL IV Diagnosis: Essential (primary) hypertension[ICD10: I10] Diagnosis: Generalized edema[ICD10: R60.1] Diagnosis: Chronic pain syndrome[ICD10: G89.4] Araceli Silva MD, [facility] CPT-4: 74958 12/24/2017 ([id number]) 92051 EST. PATIENT, LEVEL III Diagnosis: Lymphedema, not elsewhere classified[ICD10: I89.0] Araceli Silva MD, [facility] CPT-4: 98522 11/30/2017 ([id number]) 45045 EST. PATIENT, LEVEL III Diagnosis: Generalized edema[ICD10: R60.1] Ila Silva MD, [facility] CPT-4: 41536 11/27/2017 ([id number]) 84587 EST. PATIENT, LEVEL IV Diagnosis: Localized edema[ICD10: [...] in left shoulder[ICD10: M25.512] Araceli Silva MD, [facility] CPT-4: 21253 11/10/2017 ([id number]) 05633 EST. PATIENT, LEVEL IV Diagnosis: Localized edema[ICD10: [...] in left shoulder[ICD10: M25.512] Araceli Silva MD, [facility] CPT-4: 74114 10/29/2017 ([id number]) 58719 EST. PATIENT, LEVEL IV Diagnosis: Essential (primary) [...] Diagnosis: Localized edema[ICD10: R60.0] Araceli Silva MD, [facility] CPT- 4: 64830 10/20/2017 ([id number]) 45471 EST. 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 PATIENT, LEVEL IV Diagnosis: Primary osteoarthritis, left shoulder[ICD10: M19.012] Diagnosis: Pain in left shoulder[ICD10: M25.512] Diagnosis: Lymphedema, not elsewhere classified[ICD10: I89.0] Diagnosis: Localized edema[ICD10: R60.0] Diagnosis: Chronic atrial fibrillation[ICD10: I48.2] Araceli Silva MD, [facility] CPT-4: 40652 09/15/2017 ([id number]) 96442 EST. PATIENT, LEVEL III Diagnosis: Primary osteoarthritis, left shoulder[ICD10: M19.012] Diagnosis: Pain in left shoulder[ICD10: M25.512] Diagnosis: Hemarthrosis, left shoulder[ICD10: M25.012] Araceli Silva MD, [facility] CPT-4: 26379 08/31/2017 ([id number]) 48077 EST. 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 PATIENT, LEVEL III Diagnosis: Localized edema[ICD10: R60.0] Araceli Silva MD, [facility] CPT- 4: 80247 07/23/2017 ([id number]) 57521 EST. PATIENT, LEVEL III Diagnosis: Rheumatoid arthritis without rheumatoid factor, left shoulder[ICD10: M06.012] Diagnosis: Hemarthrosis, left shoulder[ICD10: M25.012] Araceli Silva MD, [facility] CPT-4: 53469 07/09/2017 ([id number]) 37810 EST. PATIENT, LEVEL III Diagnosis: Chronic pain syndrome[ICD10: G89.4] Diagnosis: Rheumatoid arthritis without rheumatoid factor, left shoulder[ICD10: M06.012] Diagnosis: Hemarthrosis, left shoulder[ICD10: M25.012] Diagnosis: Lymphedema, not elsewhere classified[ICD10: I89.0] Araceli Silva MD, [facility] CPT-4: 09587 07/01/2017 ([id number]) 00217 EST. PATIENT, LEVEL III Diagnosis: Chronic pain syndrome[ICD10: G89.4] Araceli Silva MD, [facility] CPT-4: 52696 06/24/2017 ([id number]) 63793 EST. PATIENT, LEVEL IV Diagnosis: Rheumatoid arthritis without rheumatoid factor, right shoulder[ICD10 : M06.011] Diagnosis: Rheumatoid arthritis without rheumatoid factor, left shoulder[ICD10: M06.012] Diagnosis: Pain in right shoulder[ICD10: M25.511] Diagnosis: Pain in left shoulder[ICD10: M25.512] Diagnosis: Chronic atrial fibrillation[ICD10: I48.2] Araceli Silva MD, [facility] CPT-4: 38162 06/17/2017 73971 EST. PATIENT, LEVEL III Diagnosis: Pain in left shoulder[ICD10: M25.512] Diagnosis: Hemarthrosis, right shoulder[ICD10: M25.011] Diagnosis: Hemarthrosis, left shoulder[ICD10: M25.012] Maricel Silva MD, [facility] CPT-4: 09125 06/01/2017 ([id number]) 22987 EST. PATIENT, LEVEL II Diagnosis: Pain in right shoulder[ICD10: M25.511] Diagnosis: Hemarthrosis, right shoulder[ICD10: M25.011] Araceli Silva MD, [facility] CPT-4: 21317 04/02/2017 ([id number]) 86124 EST. 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 PATIENT, LEVEL IV Diagnosis: Encounter for immunization[ICD10: Z23] Diagnosis: Chronic pain syndrome[ICD10: G89.4] Diagnosis: Essential (primary) hypertension[ICD10: I10] Araceli Silva MD, [facility] CPT-4: 28685 12/08/2016 ([id number]) 21603 EST. PATIENT, LEVEL III Diagnosis: Urge incontinence[ICD10: N39.41] Diagnosis: Chronic pain syndrome[ICD10: G89.4] Diagnosis: Lymphedema, not elsewhere classified[ICD10: I89.0] Araceli Silva MD, [facility] CPT-4: 26228 11/17/2016 [id number] EST. 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 PATIENT, LEVEL IV Diagnosis: Essential (primary) hypertension[ICD10: I10] Diagnosis: Other chronic pain[ICD10: G89.29] Diagnosis: Localized edema[ICD10: R60.0] Diagnosis: Urge incontinence[ICD10: N39.41] Araceli Silva MD, [facility] CPT-4: 64423 11/05/2016 ([id number]) 27755 EST. 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 PATIENT, LEVEL III Diagnosis: Hemarthrosis, right shoulder[ICD10: M25.011] Diagnosis: Pain in right shoulder[ICD10: M25.511] Ila Silva MD, [facility] CPT-4: 89387 10/02/2016 43974 EST. PATIENT, LEVEL II Diagnosis: Low back pain[ICD10: M54.5] Diagnosis: Sacroiliitis, not elsewhere classified[ICD10: M46.1] Ila Silva MD, [facility] CPT-4: 25350 09/12/2016 ([id number]) 96124 EST. PATIENT, LEVEL III Diagnosis: Hemarthrosis, right shoulder[ICD10: M25.011] Diagnosis: Other chronic pain[ICD10: G89.29] Araceli Silva MD, [facility] CPT-4: 94018 09/08/2016 ([id number]) 24147 EST. PATIENT, LEVEL IV Diagnosis: Other iron deficiency anemias[ICD10: D50.8] Diagnosis: Vitamin D deficiency, unspecified[ICD10: E55.9] Diagnosis: Hypomagnesemia[ICD10: E83.42] Araceli Silva MD, [facility] CPT- 4: 62908 08/26/2016 ([id number]) 73250 EST. PATIENT, LEVEL III Diagnosis: Localized edema[ICD10: R60.0] Araceli Silva MD, [facility] CPT- 4: 77709 08/18/2016 ([id number]) 18474 EST. 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 PATIENT, LEVEL IV Diagnosis: Pain in left shoulder[ICD10: M25.512] Diagnosis: Nocturia[ICD10: R35.1] Maricel Silva MD, [facility] CPT-4: 45109 07/14/2016 55911 EST. PATIENT, LEVEL III Diagnosis: Pain in left shoulder[ICD10: M25.512] Maricel Silva MD [facility] CPT-4: 83059 07/04/2016 ([id number]) 48038 EST. 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 PATIENT, LEVEL II Diagnosis: Insect bite (nonvenomous) of right upper arm, initial encounter[ICD10 : S40.861A] Ila Silva MD, [facility] CPT-4: 76006 11/01/2015 ([id number]) 68707 EST. 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 PATIENT, LEVEL III Diagnosis: Contusion of left upper arm, subsequent encounter[ICD10: S40.022D] Araceli Silva MD, [facility] CPT-4: 81862 2015 24686 EST. PATIENT, LEVEL III Diagnosis: Cellulitis of left upper limb[ICD10: L03.114] Maricel Silva MD, [facility] CPT-4: 89132 07/18/2015 ([id number]) 38024 EST. 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 PATIENT, LEVEL IV Diagnosis: Essential (primary) hypertension[ICD10: I10] Diagnosis: Vitamin D deficiency, unspecified[ICD10: E55.9] Diagnosis: Mixed hyperlipidemia[ICD10: E78.2] Diagnosis: Age-related osteoporosis with current pathological fracture, unspecified site, sequela[ICD10: M80.00XS] [facility] CPT- 4: 07022 02/08/2015 ([id number] 55649 EST. PATIENT, LEVEL IV Diagnosis: Essential (primary) hypertension[ICD10: I10] Diagnosis: Localized edema[ICD10: R60.0] Diagnosis: Primary osteoarthritis, unspecified site[ICD10: M19.91] [facility] CPT-4: 69131 12/11/2014 ([id number]) 13349 EST. PATIENT, LEVEL III Diagnosis: EDEMA[ICD9: 782.3] Diagnosis: ESSENTIAL HYPERTENSION[ICD9: 401.9] Araceli Silva MD, [facility] CPT-4: 49656 11/09/2014 ([id number]) 33289 EST. PATIENT, LEVEL III Diagnosis: Leg pain[ICD9: 729.5] Diagnosis: Ulcer of toe[ICD9: 707.15] Araceli Silva MD, [facility] CPT- 4: 24701 10/23/2014 ([id number]) 81906 EST. PATIENT, LEVEL III Diagnosis: Ulcer of toe[ICD9: 707.15] Araceli Silva MD, [facility] CPT- 4: 87258 10/16/2014 10000 EST. PATIENT, LEVEL II Diagnosis: Ulcer of toe[ICD9: 707.15] Ila Silva MD, [facility] CPT-4: 34842 10/09/2014 ([id number]) 01158 EST. PATIENT, LEVEL III Diagnosis: EDEMA[ICD9: 782.3] Araceli Silva MD, [facility] CPT-4: 21627 09/14/2014 ([id number]) 07373 EST. PATIENT, LEVEL IV Diagnosis: EDEMA[ICD9: 782.3] Diagnosis: ESSENTIAL HYPERTENSION[ICD9: 401.9] Araceli Silva MD, [facility] CPT-4: 33994 08/11/2014 ([id number]) OFFICE VISIT, NEW - LEVEL 4 Diagnosis: HYPERLIPIDEMIA[ICD9: 272.4] Diagnosis: VITAMIN D DEFICIENCY[ICD9: 268.9] Diagnosis: Osteoporosis[ICD9: 733.00] Diagnosis: Esophageal reflux[ICD9: 530.81] Diagnosis: Chronic pain[ICD9: 338.29] Araceli Silva MD, [facility] CPT- 4: 39519 07/12/2014 Plan of Care Planned Activity Notes Codes Status Date Appointment: [facility] ([facility] min) Complex 12/24/2017 Patient Education: Patient Medication Summary Completed 12/24/2017 App[facility]ment: [facility] [place] (15 min) Moderate 11/30/2017 Patient Education: Patient Medication Summary Completed 11/30/2017 Appointment: (15 min) Moderate 11/27/2017 Patient Education: Patient Medication Summary Completed 11/27/2017 App[facility]ment: [facility] [facility] [place] ([place] min) Moderate 11/10/2017 Patient Education: Patient Medication Summary Completed 11/10/2017 App[facility]ment: [facility] [place] ([place] min) Moderate 10/29/2017 Patient Education: Patient Medication Summary Completed 10/29/2017 Patient Education: Patient Medication Summary Completed 10/21/2017 App[facility]ment: [facility] [facility] [place] ([place] min) Complex 10/20/2017 Patient Education: Patient Medication Summary Completed 10/20/2017 App[facility]ment: [facility] [facility] [place] (15 min) Moderate 09/29/2017 Patient Education: Patient Medication Summary Completed 09/29/2017 Patient Education: Patient Medication Summary Completed 09/15/2017 Patient Education: Patient Medication Summary Completed 08/31/2017 Appointment: (30 min) Complex 08/21/2017 Patient Education: Patient Medication Summary Completed 08/21/2017 App[facility]ment: [facility] [facility] [place] ([place] min) Moderate 08/20/2017 App[facility]ment: [facility] [facility] [place] ([place] min) Moderate 08/12/2017 Patient Education: Patient Medication Summary Completed 08/12/2017 App[facility]ment: [facility] [facility] [place] ([place] min) Moderate 08/05/2017 Patient Education: Patient Medication Summary Completed 08/05/2017 App[facility]ment: [facility] [facility] [place] ([place] min) Moderate 07/23/2017 Patient Education: Patient Medication Summary Completed 07/23/2017 App[facility]ment: [facility] [facility] [place] ([place] min) Moderate 07/09/2017 Patient Education: Patient Medication Summary Completed 07/09/2017 Referral: [facility] WPtel: Referral Initiated 07/08/2017 Appointment: [facility] [address] [facility] [place] (15 min) Moderate 07/01/2017 Patient Education: Patient Medication Summary Completed 07/01/2017 Appointment: [facility] [address] [facility] [place] (15 min) Moderate 06/24/2017 Patient Education: Patient Medication Summary Completed 06/24/2017 Appointment: [facility] [facility] [place] ([place] min) Complex 06/17/2017 Patient Education: Patient Medication Summary Completed 06/17/2017 App[facility]ment: [facility] [facility] [place] ([place] min) Moderate 06/08/2017 Care Plan: Referral Order SNOMED-CT : 790336497 Pending 06/02/2017 [phone] [facility] [place] ([facility] min) Complex 06/01/2017 Patient Education: Patient Medication Summary Completed 06/01/2017 Appointment: [facility] [facility] [place] (15 min) Moderate 04/02/2017 Patient Education: Patient Medication Summary Completed 04/02/2017 Appointment: [facility] [facility] [place] (15 min) Moderate 03/12/2017 Patient Education: Patient Medication Summary Completed 03/12/2017 Appointment: Injection 02/06/2017 Patient Education: Patient Medication Summary Completed 02/06/2017 App[facility]ment: [facility] [facility] [place] ([place] min) Moderate 01/08/2017 Patient Education: Patient Medication Summary Completed 01/08/2017 Patient Education: Hypertension Completed 01/08/2017 Appointment: [facility] [facility] [place] ([place] min) Moderate 12/08/2016 Patient Education: Patient Medication Summary Completed 12/08/2016 Patient Education: Hypertension Completed 12/08/2016 Appointment: [facility] [facility] [place] ([place] min) Moderate 11/17/2016 Patient Education: Patient Medication Summary Completed 11/17/2016 App[facility]ment[facility] [facility] [place] ([facility] min) Complex 11/10/2016 Patient Education: Patient Medication Summary Completed 11/10/2016 Appointment: [facility] [facility] [place] (15 min) Moderate 11/05/2016 Patient Education: Patient Medication Summary Completed 11/05/2016 Patient Education: Hypertension Completed 11/05/2016 Referral: External, Ordering Provider Referral Completed 10/23/2016 Referral: Dr Virgen Referral Initiated 10/16/2016 Appointment: [facility] [facility] [place] (15 min) Moderate 10/07/2016 Patient Education: Patient Medication Summary Completed 10/07/2016 Care Plan: Referral Order SNOMED-CT : [id number] Pending 10/07/2016 Care Plan: Referral Order SNOMED-CT : [id number] Pending 10/07/2016 [facility]ment[phone] [facility] [place] (30 min) Complex 10/02/2016 Patient Education: Patient Medication Summary Completed 10/02/2016 Appointment: [facility] [facility] [place] ([place] min) Moderate 09/23/2016 Appointment: [facility] [facility] [place] ([place] min) Moderate 09/17/2016 App[facility]ment[facility] [facility] [place] (15 min) Moderate 09/12/2016 Patient Education: Patient Medication Summary Completed 09/12/2016 Appointment: [facility] [facility] [place] ([place] min) Moderate 09/08/2016 Patient Education: Patient Medication Summary Completed 09/08/2016 Appointment: [facility] [facility] [place] ([place] min) Moderate 08/26/2016 Patient Education: Patient Medication Summary Completed 08/26/2016 Patient Education: Patient Medication Summary Completed 08/26/2016 Patient Education: Patient Medication Summary Completed 08/18/2016 Appointment: [facility] [facility] [place] ([place] min) Moderate 08/13/2016 Appointment: [facility] [facility] [place] ([place] min) Moderate 08/06/2016 Appointment: [facility] [facility] [place] (15 min) Moderate 07/30/2016 Patient Education: Patient Medication Summary Completed 07/30/2016 App[facility]ment: [facility] [phone] [facility] [place] ([place] min) Complex 07/14/2016 Patient Education: Patient Medication Summary Completed 07/14/2016 App[facility]ment: [facility] [phone] [facility] [place] ([place] min) Complex 07/04/2016 Patient Education: Patient Medication Summary Completed 07/04/2016 Appointment: [facility] [facility] [place] (15 min) Moderate 06/26/2016 Patient Education: Patient Medication Summary Completed 06/26/2016 Patient Education: Hypertension Completed 06/26/2016 Appointment: [facility] [facility] [place] (15 min) Moderate 05/28/2016 Patient Education: Patient Medication Summary Completed 05/28/2016 Patient Education: Hypertension Completed 05/28/2016 Appointment: [facility] [facility] [place] ([place] min) Moderate 05/12/2016 Appointment: [facility] [facility] [place] ([place] min) Moderate 04/15/2016 Appointment: [facility] [facility] [place] ([place] min) Complex 03/25/2016 Appointment: [facility] [facility] [place] ([place]) Complex 03/18/2016 Patient Education: Patient Medication Summary Completed 03/18/2016 Appointment: [facility] [facility] [place] (15 min) Moderate 02/19/2016 Appointment: [facility]ac[facility] [address] [facility] [place] (15 min) Moderate 01/29/2016 Patient Education: Patient Medication Summary Completed 01/29/2016 Appointment: [facility] [facility] [place] ([place] min) Moderate 01/01/2016 Patient Education: Patient Medication Summary Completed 01/01/2016 Patient Education: Hypertension Completed 01/01/2016 Appointment: [facility] [facility] [place] ([place] min) Moderate 12/03/2015 Patient Education: Patient Medication Summary Completed 11/19/2015 Patient Education: Hypertension Completed 11/19/2015 Care Plan: Sed Rate Pending 11/19/2015 Appointment: Ila Kennedy WPtel: [address] [phone] [place] (15 min) Moderate 11/01/2015 Patient Education: Patient Medication Summary Completed 11/01/2015 Appointment: [facility] [place] (15 min) Moderate 09/04/2015 Patient Education: Patient Medication Summary Completed 09/04/2015 Appointment: [facility] [facility] [place] (15 min) Moderate 2015 Patient Education: Patient Medication Summary Completed 2015 App[facility]ment: [phone] [place] (30 min) Complex 07/18/2015 Patient Education: Patient Medication Summary Completed 07/18/2015 Appointment: Araceli Silva [facility]Ptel[facility] [place] (15 min) Moderate 07/02/2015 Patient Education: Patient Medication Summary Completed 07/02/2015 Patient Education: Patient Medication Summary Completed 05/31/2015 Patient Education: Hypertension Completed 05/31/2015 Patient Education: Patient Medication Summary Completed 04/10/2015 Appointment: [facility] [facility] [place] (15 min) Moderate 04/09/2015 Patient Education: Patient Medication Summary Completed 04/09/2015 Patient Education: Hypertension Completed 04/09/2015 Appointment: [facility] [facility] (15 min) Moderate 02/08/2015 Patient Education: Patient Medication Summary Completed 02/08/2015 Patient Education: Hypertension Completed 02/08/2015 Appointment: Injection 01/10/2015 Patient Education: Patient Medication Summary Completed 01/10/2015 Appointment: Araceli Silva WPtel: [phone] [facility] [place] (15 min) Moderate 12/11/2014 Patient Education: Patient Medication Summary Completed 12/11/2014 Patient Education: Hypertension Completed 12/11/2014 Appointment: Araceli Silva WPtel: [facility] (15 min) Moderate 11/09/2014 Patient Education: Patient Medication Summary Completed 11/09/2014 Patient Education: Hypertension Completed 11/09/2014 Appointment: Araceli Silva WPtel: [facility] (15 min) Moderate 10/23/2014 Patient Education: Patient Medication Summary Completed 10/23/2014 Appointment: Araceli Silva WPtel: [facility] [place] (15 min) Moderate 10/16/2014 Patient Education: Patient Medication Summary Completed 10/16/2014 Appointment: (15 min) Moderate 10/09/2014 Patient Education: Patient Medication Summary Completed 10/09/2014 Care Plan: Annel BAIRD RTS Pending 10/09/2014 App[facility]ment: [phone] [facility] 09/14/2014 Patient Education: Patient Medication Summary Completed 09/14/2014 Patient Education: Patient Medication Summary Completed 08/11/2014 Patient Education: Hypertension Completed 08/11/2014 Appointment: [phone] [place] ([place] New Patient 07/12/2014 Patient Education: Patient Medication Summary Completed 07/12/2014 Patient Education: Hypertension Completed 07/12/2014 Referral: Dr Virgen Referral Completed Referral: External, Ordering Provider Referral Completed Referral: [facility] WPtel: Referral Initiated Instructions No Instructions
--- OUTSIDE RECORDS SUMMARY | 2018-01-25 17:14 | XMS REPORT | CCD ---
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 Name Role Phone PP Unavailable CCM Unavailable Summary Purpose Interface Exchange Insurance Providers Payer name Policy type / Coverage type Covered democrat ID Effective Begin Date Effective End Date [employer] [employer] Medicare Part B [id number] 2017 Unknown AETNA Medicare Part B [id number] Unknown Family history Father Diagnosis Age At [...] Unknown Retired 07/12/[address]: 1181957 Quit over 10 years ago 1967 07/12/2014 [...] Start Date Stop Date Status Fill Instructions Cipro 500 mg tablet RxNorm: 591625 1 Tablet(s) PO BID 201701/15/2018 Active Cipro 500 mg tablet RxNorm: 753020 1 Tablet(s) PO BID 201701/05/2018 Inactive Cardizem CD 360 mg capsule,extended release RxNorm: 216548 1 Capsule(s) PO daily 01/05/2018 05/04/2018 Active potassium chloride ER 10 mEq tablet,extended release(part/ cryst) RxNorm: 8017787 2 Capsule(s) PO TID when taking lasix 01/05/2018 05/04/2018 Active potassium chloride ER 10 mEq capsule,extended release RxNorm: 806608 Capsule(s) TAKE 1 CAPSULE BY MOUTH TWICE DAILY WHEN TAKING LASIX (FUROSEMIDE) 11/27/2017 No Stop Date Active fentanyl 25 mcg/hr transdermal patch RxNorm: 512351 1 Patch TD Q72H use with 100mcg patch for a total of 125mcg daily 11/27/2017 12/26/2017 Inactive fentanyl 100 mcg/hr transdermal patch RxNorm: 631646 1 Patch TD Q72H use with 25mcg/hr patch 11/27/2017 12/26/2017 Inactive potassium chloride ER 10 mEq capsule,extended release RxNorm: 290788 Capsule(s) TAKE 1 CAPSULE BY MOUTH TWICE DAILY WHEN TAKING LASIX (FUROSEMIDE) 11/27/2017 11/26/2017 Inactive bumetanide 0.5 mg tablet RxNorm: 037833 1 Tablet(s) PO daily 12/23/2017 Inactive in the afternoon x 3 days then as needed per Dr Silva oxycodone 30 mg tablet RxNorm: 6145037 1/2 Tablet(s) PO Q6 12/27/2017 Inactive Lasix 20 mg tablet RxNorm: 850178 TAKE 1 TABLET BY MOUTH TWICE DAILY 10/29/2017 No Stop Date Active fentanyl 100 mcg/hr transdermal patch RxNorm: 321038 1 Patch TD Q72H use with 25mcg/hr patch 10/29/2017 11/26/2017 Inactive fentanyl 25 mcg/hr transdermal patch RxNorm: 089620 1 Patch TD Q72H use with 100mcg patch for a total of 125mcg daily 10/29/2017 11/26/2017 Inactive pantoprazole 40 mg tablet,delayed release RxNorm: 526563 Tablet(s) Take 1 tablet by mouth daily 10/21/2017 04/18/2018 Active - Ref: [id number] potassium chloride ER 10 mEq capsule,extended release RxNorm: 808838 TAKE 1 CAPSULE BY MOUTH TWICE DAILY WHEN TAKING LASIX (FUROSEMIDE) 10/09/2017 11/26/2017 Inactive fentanyl 25 mcg/hr transdermal patch RxNorm: 102306 1 Patch TD Q72H use with 100mcg patch for a total of 125mcg daily 10/01/2017 10/28/2017 Inactive fentanyl 100 mcg/hr transdermal patch RxNorm: 759544 1 Patch TD Q72H use with 25mcg/hr patch 10/01/2017 10/28/2017 Inactive potassium chloride ER 10 mEq tablet,extended release(part/ cryst) RxNorm: 6474764 1 Capsule(s) PO BID when taking lasix 09/22/2017 01/04/2018 Inactive fentanyl 100 mcg/hr transdermal patch RxNorm: 894531 1 Patch TD Q72H use with 25mcg/hr patch 08/31/2017 09/29/2017 Inactive Kenalog 40 mg/mL suspension for injection RxNorm: 2045556 1 Milliliter(s) Inj 08/31/2017 08/31/2017 Inactive fentanyl 25 mcg/hr transdermal patch RxNorm: 890608 1 Patch TD Q72H use with 100mcg patch for a total of 125mcg daily 08/31/2017 09/29/2017 Inactive oxycodone 30 mg tablet RxNorm: 9973721 1/2 Tablet(s) PO Q6 04/201710/28/2017 Inactive cyanocobalamin (vit B-12) 1,000 mcg/mL injection solution RxNorm: 938606 1 Milliliter(s) Inj monthly 08/21/201708/15 Active please provide her with syringe/needle for injection cyanocobalamin (vit B-12) 1,000 mcg/mL injection solution RxNorm: 314198 1 Milliliter(s) Inj monthly 08/21/201708/20 Inactive please provide her with syringe/needle for injection Kenalog 40 mg/mL suspension for injection RxNorm: 0111229 2 Milliliter(s) Inj 1mL in each shoulder 08/21/2017 08/21/2017 Inactive cyanocobalamin (vit B-12) 1,000 mcg/mL injection solution RxNorm: 196408 1 Milliliter(s) Inj monthly 08/21/201708/20 Inactive please provide her with syringe/needle for injection Kenalog 40 mg/mL suspension for injection RxNorm: 1630269 2 Milliliter(s) Inj UD 08/12/2017 08/12/2017 Inactive fentanyl 25 mcg/hr transdermal patch RxNorm: 747377 1 Patch TD Q72H use with 100mcg patch for a total of 125mcg daily 08/05/2017 08/30/2017 Inactive fentanyl 100 mcg/hr transdermal patch RxNorm: 594399 1 Patch TD Q72H use with 25mcg/hr patch 08/05/2017 08/30/2017 Inactive Kenalog 40 mg/mL suspension for injection RxNorm: 8116452 2 Milliliter(s) Inj 1mL per shoulder 08/05/2017 08/05/2017 Inactive clindamycin HCl 150 mg capsule RxNorm: 610797 1 Capsule(s) PO QID Dr Shultz prescribed 07/23/2017 07/29/2017 Inactive prednisone 5 mg tablet RxNorm: 153930 1 Tablet(s) PO daily 11/201707/03/2018 Active fentanyl 25 mcg/hr transdermal patch RxNorm: 576791 1 Patch TD Q72H use with 100mcg patch for a total of 125mcg daily 07/01/2017 07/30/2017 Inactive Lasix 20 mg tablet RxNorm: 340874 1 Tablet(s) PO BID 201710/28/2017 Inactive fentanyl 100 mcg/hr transdermal patch RxNorm: 690751 1 Patch TD Q72H use with 25mcg/hr patch 07/01/2017 07/30/2017 Inactive potassium chloride ER 10 mEq capsule,extended release RxNorm: 726979 1 Capsule(s) PO BID when taking lasix 07/01/20172017 Inactive oxycodone 30 mg tablet RxNorm: 8021001 1/2 Tablet(s) PO Q6 08/22/2017 Inactive fentanyl 100 mcg/hr transdermal patch RxNorm: 279716 1 Patch TD Q72H use with 25mcg/hr patch 05/07/2017 06/05/2017 Inactive fentanyl 25 mcg/hr transdermal patch RxNorm: 067000 1 Patch TD Q72H use with 100mcg patch for a total of 125mcg daily 05/07/2017 06/05/2017 Inactive fentanyl 100 mcg/hr transdermal patch RxNorm: 121619 1 Patch TD Q72H 04/08/2017 05/06/2017 Inactive fentanyl 25 mcg/hr transdermal patch RxNorm: 284523 1 Patch TD Q72H use with 100mcg patch for a total of 125mcg daily 04/08/2017 05/06/2017 Inactive Kenalog 40 mg/mL suspension for injection RxNorm: 8574490 1.5 Milliliter(s) Inj 04/02/2017 04/02/2017 Inactive fentanyl 100 mcg/hr transdermal patch RxNorm: 644793 1 Patch TD Q72H 03/12/2017 04/07/2017 Inactive fentanyl 25 mcg/hr transdermal patch RxNorm: 804635 1 Patch TD Q72H use with 100mcg patch for a total of 125mcg daily 03/12/2017 04/07/2017 Inactive oxycodone 30 mg tablet RxNorm: 1683597 1/2 Tablet(s) PO Q6 09/201704/07/2017 Inactive cyanocobalamin (vit B-12) 1,000 mcg/mL injection syringe RxNorm: 972675 1 Milliliter(s) Inj monthly 02/16/2017 No Stop Date Active please provide with supplys needed for injection fentanyl 100 mcg/hr transdermal patch RxNorm: 333377 1 Patch TD Q72H 02/06/2017 03/07/2017 Inactive Myrbetriq 50 mg tablet,extended release RxNorm: 6425747 1 Tablet(s) PO QPM 12/11/2016 07/22/2017 Inactive oxycodone 30 mg tablet RxNorm: 4063701 1/2 Tablet(s) PO Q6 10/201601/06/2017 Inactive naproxen 500 mg tablet RxNorm: 773066 1 Tablet(s) PO BID Take 1 tablet by mouth two times daily as needed 12/08/201607/08 Inactive - First Attempt Ref: [id number] Myrbetriq 50 mg tablet,extended release RxNorm: 4041291 1 Tablet(s) PO QPM 11/17/2016 12/10/2016 Inactive fentanyl 100 mcg/hr transdermal patch RxNorm: 127153 1 Patch TD Q72H 11/12/2016 12/11/2016 Inactive Vesicare 10 mg tablet RxNorm: 736196 1 Tablet(s) PO QPM 201611/18/2016 Inactive oxycodone 10 mg tablet RxNorm: 8290120 1-2 Tablet(s) PO Q4 PRN as needed to take between 30mg dose if needed for extra pain control 201612/07/2016 Inactive fentanyl 75 mcg/hr transdermal patch RxNorm: 473866 1 TD Q72H 10/22/2016 11/10/2016 Inactive oxycodone 10 mg tablet RxNorm: 9887345 1-2 Tablet(s) PO Q4 PRN as needed to take between 30mg dose if needed for extra pain control 201611/04/2016 Inactive Kenalog 40 mg/mL suspension for injection RxNorm: 7369384 1 Milliliter(s) Inj 10/02/2016 10/02/2016 Inactive Kenalog 40 mg/mL suspension for injection RxNorm: 9870943 1 Milliliter(s) Inj 09/12/2016 09/12/2016 Inactive cyclobenzaprine 5 mg tablet RxNorm: 909634 1 Tablet(s) PO Q8 as needed muscle spasms 09/11/2016 07/22/2017 Inactive prednisone 10 mg tablets in a dose pack RxNorm: 925316 1 Tablet(s) PO UD 09/09/2016 06/23/2017 Inactive potassium chloride ER 10 mEq capsule,extended release RxNorm: 757127 1 Capsule(s) PO BID as needed when taking lasix 08/26/2016 06/30/2017 Inactive Lasix 20 mg tablet RxNorm: 750293 1 Tablet(s) PO BID daily x 10 days then as needed edema 08/26/2016 12/23/2016 Inactive naproxen 500 mg tablet RxNorm: 865995 Take 1 tablet by mouth two times daily as needed 08/18/2016 11/15/2016 Inactive - First Attempt Ref: [id number] Lasix 20 mg tablet RxNorm: 300570 1 Tablet(s) PO QAM daily x 10 days then as needed edema 08/18/2016 08/25/2016 Inactive Vesicare 5 mg tablet RxNorm: 308598 1 Tablet(s) PO QPM 201611/04/2016 Inactive potassium chloride ER 10 mEq capsule,extended release RxNorm: 694827 1 Capsule(s) PO QAM as needed when taking lasix 08/18/2016 08/25/2016 Inactive Myrbetriq 25 mg tablet,extended release RxNorm: 4951370 1 Tablet(s) PO QHS 07/14/2016 07/29/2016 Inactive pantoprazole 40 mg tablet,delayed release RxNorm: 729907 Take 1 tablet by mouth daily 06/30/2016 12/26/2016 Inactive - Ref: [id number] Embeda 20 mg-0.8 mg capsule, extend release, oral only RxNorm: 440391 1 Capsule(s ) PO daily 06/04/2016 06/03/2016 Inactive Embeda 20 mg-0.8 mg capsule, extend release, oral only RxNorm: 976960 1 Capsule(s ) PO daily 06/04/2016 07/01/2016 Inactive oxycodone 10 mg tablet RxNorm: 8432247 1 Tablet(s) PO QID as needed to take between 30mg dose if needed for extra pain control 201606/10/2016 Inactive oxycodone 30 mg tablet RxNorm: 2142615 1 Tablet(s) PO Q6 201611/04/2016 Inactive cyanocobalamin (vit B-12) 1,000 mcg/mL injection solution RxNorm: 003807 1 Milliliter(s) Inj monthly 02/22/201602/15 Inactive she also needs syringes/ needles for this solution QS oxycodone 30 mg tablet RxNorm: 8081154 1 Tablet(s) PO Q6 201503/19/2016 Inactive oxycodone 10 mg tablet RxNorm: 5996121 1 Tablet(s) PO QID as needed to take between 30mg dose if needed for extra pain control 201503/19/2016 Inactive oxycodone 10 mg tablet RxNorm: 8815828 1 Tablet(s) PO QID as needed to take between 30mg dose if needed for extra pain control 201502/18/2016 Inactive oxycodone 30 mg tablet RxNorm: 3370406 1 Tablet(s) PO Q6 201502/18/2016 Inactive pantoprazole 40 mg tablet,delayed release RxNorm: 551979 Take 1 tablet by mouth daily 01/22/2016 06/29/2016 Inactive - First Attempt Ref: [id number] oxycodone 30 mg tablet RxNorm: 4059725 1 Tablet(s) PO Q6 201501/28/2016 Inactive oxycodone 10 mg tablet RxNorm: 5817357 1 Tablet(s) PO QID as needed take between 20mg dose if needed for extra pain control 11/07/2015 12/06/2015 Inactive oxycodone 20 mg tablet RxNorm: 4813785 1 Tablet(s) PO Q6 as needed 11/07/2015 12/31/2015 Inactive doxycycline hyclate 100 mg tablet RxNorm: 709601 1 Tablet(s) PO BID 11/01/2015 11/10/2015 Inactive potassium chloride ER 10 mEq capsule,extended release RxNorm: 322996 1 Capsule(s) PO TIW as needed when taking lasix 09/04/2015 08/17/2016 Inactive Voltaren 1 % topical gel RxNorm: 647703 2 Gram(s) TOP QID 08/2909/03/2015 Inactive pa approved Voltaren 1 % topical gel RxNorm: 126324 2 Gram(s) TOP QID 08/0808/29/2015 Inactive naproxen 500 mg tablet RxNorm: 991526 1 Tablet(s) PO BID 201508/17/2016 Inactive naproxen 500 mg tablet RxNorm: 130239 1 Tablet(s) PO BID 201508/08/2015 Inactive doxycycline hyclate 100 mg tablet RxNorm: 467758 1 Tablet(s) PO BID do not take calcium/vitamin d while on antibiotic 07/18/2015 07/31/2015 Inactive Vitamin D2 50,000 unit capsule RxNorm: 667092 1 Capsule(s) PO QW 07/02/2015 11/18/2015 Inactive Premarin 0.3 mg tablet RxNorm: 757153 1 Tablet(s) PO daily 12/201505/09/2015 Inactive Premarin 0.3 mg tablet RxNorm: 827552 1 Tablet(s) PO daily 12/201503/17/2016 Inactive simvastatin 40 mg tablet RxNorm: 873479 1 Tablet(s) PO daily 03/17/2016 Inactive spironolactone 25 mg tablet RxNorm: 642756 TAKE ONE TABLET BY MOUTH DAILY 05/07/2015 05/27/2016 Inactive potassium chloride ER 10 mEq capsule,extended release RxNorm: 231113 1 Capsule(s) PO TIW as needed when taking lasix 04/17/2015 09/03/2015 Inactive alendronate 70 mg tablet RxNorm: 459418 1 Tablet(s) PO weekly QW 04/17/2015 07/01/2015 Inactive Vitamin D2 50,000 unit capsule RxNorm: 827507 1 Capsule(s) PO QW 03/30/2015 06/27/2015 Inactive Vitamin D2 50,000 unit capsule RxNorm: 679876 1 Capsule(s) PO QW 03/21/2015 03/29/2015 Inactive cyanocobalamin (vit B-12) 1,000 mcg/mL injection solution RxNorm: 136007 1 Milliliter(s) Inj monthly 03/19/201502/20 Inactive cyanocobalamin (vit B-12) 1,000 mcg/mL injection solution RxNorm: 941247 1 Milliliter(s) Inj monthly 03/16/201503/18 Inactive cyanocobalamin (vit B-12) 1,000 mcg/mL injection solution RxNorm: 842888 1 Milliliter(s) Inj monthly 03/16/201503/15 Inactive pantoprazole 40 mg tablet,delayed release RxNorm: 191602 1 Tablet(s) PO daily 03/05/2015 01/21/2016 Inactive Lasix 20 mg tablet RxNorm: 442443 1 Tablet(s) PO TIW as needed edema 02/08/2015 02/02/2016 Inactive oxycodone 10 mg tablet RxNorm: 7060294 1 Tablet(s) PO QID as needed take between 20mg dose if needed for extra pain control 11/09/2014 12/08/2014 Inactive oxycodone 20 mg tablet RxNorm: 6350511 1 Tablet(s) PO Q6 as needed 10/25/2014 11/06/2015 Inactive doxycycline hyclate 100 mg tablet RxNorm: 504044 1 Tablet(s) PO BID 10/23/2014 11/19/2014 Inactive Cipro 500 mg tablet RxNorm: 364430 1 Tablet(s) PO BID 201410/16/2014 Inactive Cipro 500 mg tablet RxNorm: 869552 1 Tablet(s) PO BID 201410/09/2014 Inactive oxycodone 20 mg tablet RxNorm: 8676179 1 Tablet(s) PO Q6 as needed 09/25/2014 10/24/2014 Inactive Lasix 20 mg tablet RxNorm: 536030 1 Tablet(s) PO TIW as needed edema 09/14/2014 01/11/2015 Inactive potassium chloride ER 10 mEq capsule,extended release RxNorm: 659982 1 Capsule(s) PO TIW as needed when taking lasix 09/14/2014 01/11/2015 Inactive doxycycline hyclate 100 mg tablet RxNorm: 416442 1 Tablet(s) PO BID 09/05/2014 09/14/2014 Inactive doxycycline hyclate 100 mg tablet RxNorm: 881953 1 Tablet(s) PO BID 09/05/2014 09/04/2014 Inactive oxycodone 20 mg tablet RxNorm: 3861584 1 Tablet(s) PO Q6 as needed 08/29/2014 09/24/2014 Inactive spironolactone 25 mg tablet RxNorm: 210899 1 Tablet(s) PO daily 08/11/2014 03/08/2015 Inactive oxycodone 20 mg tablet RxNorm: 5587271 1 Tablet(s) PO Q6 as needed 08/02/2014 08/28/2014 Inactive Vitamin D3 2,000 unit tablet RxNorm: 366133 1 Tablet(s) PO daily 07/14/2014 No Stop Date Active Vitamin D2 50,000 unit capsule RxNorm: 468007 1 Capsule(s) PO QW 07/14/2014 10/11/2014 Inactive Vitamin D2 50,000 unit capsule RxNorm: 096911 1 Capsule(s) PO QW 07/14/2014 07/13/2014 Inactive Prolia 60 mg/mL subcutaneous syringe RxNorm: 555781 Milliliter(s) SQ EVERY 6 MONTHS No Start Date Active Carafate 1 gram tablet RxNorm: 354162 1 Tablet(s) PO BID No Start Date Active Miralax oral RxNorm: 741555 oral No Start Date Active Stool Softener oral RxNorm: 24672 oral No Start Date Active Calcium + Vitamin D oral RxNorm: 4018 oral No Start Date Active naproxen 500 mg tablet RxNorm: 982472 1 Tablet(s) PO BID No Start Date 08/05/2015 Inactive oxycodone 20 mg tablet RxNorm: 0962543 1 Tablet(s) PO Q6 as needed No Start Date 08/01/2014 Inactive aspirin 81 mg tablet RxNorm: 654500 1 Tablet(s) PO daily No Start Date 07/22/2017 Inactive simvastatin 40 mg tablet RxNorm: 897580 1 Tablet(s) PO daily No Start Date 05/09/2015 Inactive cyanocobalamin (vit B-12) 1,000 mcg/mL injection syringe RxNorm: 144771 1 Inj monthly No Start Date 02/15/2017 Inactive Reglan 10 mg tablet RxNorm: 412646 1 Tablet(s) PO as needed No Start Date 07/29/2016 Inactive alendronate 70 mg tablet RxNorm: 476297 1 Tablet(s) PO weekly No Start Date 04/16/2015 Inactive Protonix 40 mg tablet,delayed release RxNorm: 175443 1 Tablet(s) PO daily No Start Date 03/04/2015 Inactive cyclobenzaprine 5 mg tablet RxNorm: 274044 1 Tablet(s) PO Q8 as needed muscle spasms No Start Date 09/10/2016 Inactive Vitamin D3 1,000 unit capsule RxNorm: 192402 1 Capsule(s) PO daily No Start Date 07/13/2014 Inactive Cardizem CD 360 mg capsule,extended release RxNorm: 265117 1 Capsule(s) PO daily No Start Date 01/04/2018 Inactive prednisone 10 mg tablets in a dose pack RxNorm: 959441 1 Tablet(s) PO UD No Start Date 09/08/2016 Inactive Medication Administered Medication Codes Instructions Start Date Status Kenalog 40 mg/mL suspension for injection RxNorm: 7586022 1Milliliter 08/31/2017 No longer Active Kenalog 40 mg/mL suspension for injection RxNorm: 9259299 2Milliliter 08/21/2017 No longer Active Kenalog 40 mg/mL suspension for injection RxNorm: 6048359 2MilliliterUD 08/12/2017 No longer Active Kenalog 40 mg/mL suspension for injection RxNorm: 1921077 2Milliliter 08/05/2017 No longer Active Kenalog 40 mg/mL suspension for injection RxNorm: 7464501 1.5Milliliter 04/02/2017 No longer Active Kenalog 40 mg/mL suspension for injection RxNorm: 5161536 1Milliliter 10/02/2016 No longer Active Kenalog 40 mg/mL suspension for injection RxNorm: 0029940 1Milliliter 09/12/2016 No longer Active Immunizations Vaccine [...] Tibc Ord40 Fe-%Sat 21.7 % 10/22/2017 Prealbumin 229065 PREALBUMIN 33 mg/dL 10/21/2017 Comp Metabolic Qdp860 NA 134 mEq/L 10/20/2017 Comp Metabolic Wvu481 K 3.7 mEq/L 10/20/2017 Comp Metabolic Mry969 CL 93 mEq/L 10/20/2017 Comp Metabolic Cxj842 CO2 29.0 mEq/L 10/20/2017 Comp Metabolic Vyc034 ANION GAP 16 10/20/2017 Comp Metabolic Eod411 GLUCOSE 115 mg/dL 10/20/2017 Comp Metabolic Isk907 Creat 0.8 mg/dL 10/20/2017 Comp Metabolic Wzk498 eGFR 73 ml/min/1.73m2 10/20/2017 Comp Metabolic Zyq618 BUN 46 mg/dL 10/20/2017 Comp Metabolic Bfw924 B/C Ratio 57.5 Ratio 10/20/2017 Comp Metabolic Koz006 CALCIUM 8.7 mg/dL 10/20/2017 Comp Metabolic Lwv726 ALK PHOS 56 U/L 10/20/2017 Comp Metabolic Ase298 AST(SGOT) 19 U/L 10/20/2017 Comp Metabolic Sbo220 ALT(SGPT) 23 U/L 10/20/2017 Comp Metabolic Sbm251 BILI T 0.6 mg/dL 10/20/2017 Comp Metabolic Mzf205 ALBUMIN 4.0 g/dL 10/20/2017 Comp Metabolic Wey306 TPRO 6.6 g/dL 10/20/2017 Comp Metabolic Nrg650 GLOB 2.7 g/dL 10/20/2017 Comp Metabolic Ppn539 A/G Ratio 1.5 Ratio 10/20/2017 Comp Metabolic Bqc509 Osmo 281 mOsmo 10/20/2017 Tsh Ord6 TSH [...] 18.4 % 10/20/2017 Cbc With Differential Ord2 Pierce% 9.9 % 10/20/2017 Cbc With Differential Ord2 [...] 1.15 K/ul 10/20/2017 Cbc With Differential Ord2 Pierce ABS# 0.6 K/ul 10/20/2017 Cbc With Differential Ord2 Eos ABS# 0.0 K/ul 10/20/2017 Cbc With Differential Ord2 Baso ABS# 0.0 K/ul 10/20/2017 Iron Ord72 Iron 75 ug/dl 10/20/2017 Romie Reflex Profile [id number] ROMIE (BRYANNA) SCREEN NONE DETECTED 01/12/2017 Comp Metabolic Nhv860 NA 129 mEq/L 01/08/2017 Comp Metabolic Drj648 K 3.9 mEq/L 01/08/2017 Comp Metabolic Fwk147 CL 94 mEq/L 01/08/2017 Comp Metabolic Opt703 CO2 31.0 mEq/L 01/08/2017 Comp Metabolic Bzh666 ANION GAP 8 01/08/2017 Comp Metabolic Dja553 GLUCOSE 103 mg/dL 01/08/2017 Comp Metabolic Gin839 Creat 0.9 mg/dL 01/08/2017 Comp Metabolic Fxg192 eGFR 61 ml/min/1.73m2 01/08/2017 Comp Metabolic Ixn452 BUN 29 mg/dL 01/08/2017 Comp Metabolic Vbw756 B/C Ratio 30.9 Ratio 01/08/2017 Comp Metabolic Pey336 CALCIUM 8.5 mg/dL 01/08/2017 Comp Metabolic Ymx821 ALK PHOS 58 U/L 01/08/2017 Comp Metabolic Hwa822 AST(SGOT) 17 U/L 01/08/2017 Comp Metabolic Hpt087 ALT(SGPT) 10 U/L 01/08/2017 Comp Metabolic Bzg540 BILI T 0.4 mg/dL 01/08/2017 Comp Metabolic Quj121 ALBUMIN 3.0 g/dL 01/08/2017 Comp Metabolic Lnb018 TPRO 5.5 g/dL 01/08/2017 Comp Metabolic Yin417 GLOB 2.5 g/dL 01/08/2017 Comp Metabolic Dal636 A/G Ratio 1.2 Ratio 01/08/2017 Comp Metabolic Mtv052 Osmo 265 mOsmo 01/08/2017 Cbc With Differential [...] 102.2 fl 01/08/2017 Cbc With Differential Ord2 Pierce% 12.2 % 01/08/2017 Cbc With Differential Ord2 [...] 1.62 K/ul 01/08/2017 Cbc With Differential Ord2 Pierce ABS# 0.9 K/ul 01/08/2017 Cbc With Differential [...] 33.1 pg 11/10/2016 Cbc With Differential Ord2 Pierce% 9.1 % 11/10/2016 Cbc With Differential Ord2 [...] 0.78 K/ul 11/10/2016 Cbc With Differential Ord2 Pierce ABS# 0.5 K/ul 11/10/2016 Cbc With Differential [...] 30.3 pg 10/07/2016 Cbc With Differential Ord2 Pierce% 11.8 % 10/07/2016 Cbc With Differential Ord2 [...] 1.54 K/ul 10/07/2016 Cbc With Differential Ord2 Pierce ABS# 1.0 K/ul 10/07/2016 Cbc With Differential Ord2 Eos ABS# 0.1 K/ul 10/07/2016 Cbc With Differential Ord2 Baso ABS# 0.0 K/ul 10/07/2016 Tibc Ord40 Iron 13 ug/dl 08/26/2016 Tibc Ord40 UIBC 283 ug/dL 08/26/2016 Tibc Ord40 TIBC 296 ug/dL 08/26/2016 Tibc Ord40 Fe-%Sat 4.4 % 08/26/2016 Ferritin Ord22 FERRITIN 28.8 ng/mL 08/26/2016 Comp Metabolic Reu026 NA 129 mEq/L 08/26/2016 Comp Metabolic Amc519 K 3.9 mEq/L 08/26/2016 Comp Metabolic Clt872 CL 93 mEq/L 08/26/2016 Comp Metabolic Imc448 CO2 30.0 mEq/L 08/26/2016 Comp Metabolic Lcb766 ANION GAP 10 08/26/2016 Comp Metabolic Ije878 GLUCOSE 87 mg/dL 08/26/2016 Comp Metabolic Usd405 Creat 0.6 mg/dL 08/26/2016 Comp Metabolic Pgr589 eGFR 96 ml/min/1.73m2 08/26/2016 Comp Metabolic Ctp160 BUN 17 mg/dL 08/26/2016 Comp Metabolic Fia260 B/C Ratio 27.0 Ratio 08/26/2016 Comp Metabolic Hsm804 CALCIUM 7.6 mg/dL 08/26/2016 Comp Metabolic Rmo046 ALK PHOS 72 U/L 08/26/2016 Comp Metabolic Xtw355 AST(SGOT) 20 U/L 08/26/2016 Comp Metabolic Odf054 ALT(SGPT) 12 U/L 08/26/2016 Comp Metabolic Fer757 BILI T 0.3 mg/dL 08/26/2016 Comp Metabolic Pxb398 ALBUMIN 2.7 g/dL 08/26/2016 Comp Metabolic Xvq354 TPRO 5.3 g/dL 08/26/2016 Comp Metabolic Wwd663 GLOB 2.6 g/dL 08/26/2016 Comp Metabolic Guy231 A/G Ratio 1.1 Ratio 08/26/2016 Comp Metabolic Hcb842 Osmo 260 mOsmo 08/26/2016 Cbc With Differential [...] 88.7 fl 08/26/2016 Cbc With Differential Ord2 Pierce% 9.6 % 08/26/2016 Cbc With Differential Ord2 [...] 1.83 K/ul 08/26/2016 Cbc With Differential Ord2 Pierce ABS# 1.0 K/ul 08/26/2016 Cbc With Differential Ord2 Eos ABS# 0.1 K/ul 08/26/2016 Cbc With Differential Ord2 Baso ABS# 0.0 K/ul 08/26/2016 Magnesium Ord90 Mag 1.9 mg/dL 08/26/2016 Vitamin D 25 Oh [id number] VITAMIN D, 25 HYDROXY 34.59 ng/mL Sed Rate Ord21 ESR 20 mm/hr 11/19/2015 Comp Metabolic Wge333 NA 131 mEq/L 08/22/2015 Comp Metabolic Dqf641 K 4.2 mEq/L 08/22/2015 Comp Metabolic Tje272 CL 98 mEq/L 08/22/2015 Comp Metabolic Krl674 CO2 27.0 mEq/L 08/22/2015 Comp Metabolic Pox371 ANION GAP 10 08/22/2015 Comp Metabolic Gbp088 GLUCOSE 80 mg/dL 08/22/2015 Comp Metabolic Mvm680 Creat 0.5 mg/dL 08/22/2015 Comp Metabolic Dds533 eGFR 120 ml/min/1.73m2 08/22/2015 Comp Metabolic Hui173 BUN 13 mg/dL 08/22/2015 Comp Metabolic Pzq947 B/C Ratio 25.0 Ratio 08/22/2015 Comp Metabolic Cys714 CALCIUM 8.2 mg/dL 08/22/2015 Comp Metabolic Bib619 ALK PHOS 49 U/L 08/22/2015 Comp Metabolic Uky929 AST(SGOT) 18 U/L 08/22/2015 Comp Metabolic Znf694 ALT(SGPT) 11 U/L 08/22/2015 Comp Metabolic Zkp151 BILI T 0.5 mg/dL 08/22/2015 Comp Metabolic Dmp773 ALBUMIN 3.5 g/dL 08/22/2015 Comp Metabolic Sos590 TPRO 6.2 g/dL 08/22/2015 Comp Metabolic Ghi277 GLOB 2.7 g/dL 08/22/2015 Comp Metabolic Zas546 A/G Ratio 1.3 Ratio 08/22/2015 Comp Metabolic Yqz759 Osmo 262 mOsmo 08/22/2015 Cbc With Differential [...] 21.4 % 08/22/2015 Cbc With Differential Ord2 Pierce% 10.3 % 08/22/2015 Cbc With Differential Ord2 [...] 1.39 K/ul 08/22/2015 Cbc With Differential Ord2 Pierce ABS# 0.7 K/ul 08/22/2015 Cbc With Differential Ord2 Eos ABS# 0.1 K/ul 08/22/2015 Cbc With Differential Ord2 Baso ABS# 0.0 K/ul 08/22/2015 Tsh Ord6 hTSH II 2.19 uIU/mL 08/22/2015 Vitamin D 25 Oh [id number] VITAMIN D, 25 HYDROXY 55.10 ng/mL Lipid [...] 1.5 Ratio 03/16/2015 Vitamin D 25 Oh Hux8269 VITAMIN D, 25 HYDROXY 28.94 ng/mL Cbc [...] 28.1 pg 03/16/2015 Cbc With Differential Ord2 Pierce% 11.2 % 03/16/2015 Cbc With Differential Ord2 [...] 2.37 K/ul 03/16/2015 Cbc With Differential Ord2 Pierce ABS# 0.8 K/ul 03/16/2015 Cbc With Differential Ord2 Eos ABS# 0.1 K/ul 03/16/2015 Cbc With Differential Ord2 Baso ABS# 0.0 K/ul 03/16/2015 Cbc With Differential Ord2 New Analyzer Notice Please note new ref ranges starting 03-14-2015 due to implemntation of new five part differential hematolgy analyzer. 03/16/2015 Comp Metabolic [id number] NA 131 mEq/L 03/16/2015 Comp Metabolic [id number] K 4.1 mEq/L 03/16/2015 Comp Metabolic Typ145 CL 94 mEq/L 03/16/2015 Comp Metabolic Dpm008 CO2 28.0 mEq/L 03/16/2015 Comp Metabolic Rui202 ANION GAP 13 03/16/2015 Comp Metabolic Saa144 GLUCOSE 96 mg/dL 03/16/2015 Comp Metabolic Awu373 Creat 0.7 mg/dL 03/16/2015 Comp Metabolic Mgc830 eGFR 80 ml/min/1.73m2 03/16/2015 Comp Metabolic Lbh900 BUN 16 mg/dL 03/16/2015 Comp Metabolic Qna083 B/C Ratio 21.6 Ratio 03/16/2015 Comp Metabolic Jcf633 CALCIUM 8.9 mg/dL 03/16/2015 Comp Metabolic Ccf094 ALK PHOS 44 U/L 03/16/2015 Comp Metabolic Ysd620 AST(SGOT) 22 U/L 03/16/2015 Comp Metabolic Kxm169 ALT(SGPT) 14 U/L 03/16/2015 Comp Metabolic Rof248 BILI T 0.5 mg/dL 03/16/2015 Comp Metabolic Ewd952 ALBUMIN 3.4 g/dL 03/16/2015 Comp Metabolic Tdk244 TPRO 6.0 g/dL 03/16/2015 Comp Metabolic Vbv156 GLOB 2.6 g/dL 03/16/2015 Comp Metabolic Htc654 A/G Ratio 1.3 Ratio 03/16/2015 Comp Metabolic Aze219 Osmo 264 mOsmo 03/16/2015 Comp Metabolic Isk203 NA 129 mEq/L 11/09/2014 Comp Metabolic Ksu939 K 4.2 mEq/L 11/09/2014 Comp Metabolic Soj750 CL 96 mEq/L 11/09/2014 Comp Metabolic Dkt304 CO2 27.0 mEq/L 11/09/2014 Comp Metabolic Cmb704 ANION GAP 10 11/09/2014 Comp Metabolic Ndj672 GLUCOSE 144 mg/dL 11/09/2014 Comp Metabolic Gwe413 Creat 0.8 mg/dL 11/09/2014 Comp Metabolic Knr887 eGFR 73 ml/min/1.73m2 11/09/2014 Comp Metabolic Xyf602 BUN 22 mg/dL 11/09/2014 Comp Metabolic Kyj832 B/C Ratio 27.5 Ratio 11/09/2014 Comp Metabolic Hgb939 CALCIUM 8.6 mg/dL 11/09/2014 Comp Metabolic Dnm046 ALK PHOS 55 U/L 11/09/2014 Comp Metabolic Tsz892 AST(SGOT) 27 U/L 11/09/2014 Comp Metabolic Cjg234 ALT(SGPT) 18 U/L 11/09/2014 Comp Metabolic Omw165 BILI T 0.5 mg/dL 11/09/2014 Comp Metabolic Sfr849 ALBUMIN 3.0 g/dL 11/09/2014 Comp Metabolic Myo592 TPRO 5.4 g/dL 11/09/2014 Comp Metabolic Ygq082 GLOB 2.4 g/dL 11/09/2014 Comp Metabolic Led204 A/G Ratio 1.3 Ratio 11/09/2014 Comp Metabolic Mqi771 Osmo 265 mOsmo 11/09/2014 Magnesium Ord90 Mag [...] lips 03/18/2016 None Full Exam - General 1995 Ears/Nose/Throat lips/teeth/gingiva Overall: normal dentition 03/18/2016 None Full Exam - General 1994 Ears/Nose/Throat oral cavity/pharynx/larynx Overall: oral mucosa clear 03/18/2016 None Full Exam - General 1995 Ears/Nose/Throat oral cavity/pharynx/larynx Overall: oropharyngeal mucosa clear 03/18/2016 None Full Exam - General 1995 Ears/Nose/Throat oral cavity/pharynx/larynx Overall: hypopharynx benign 03/18/2016 None Full Exam - General 1995 Ears/Nose/Throat oral cavity/pharynx/larynx Overall: no masses 03/18/2016 [...] Procedures Procedure Codes Date DRAIN/INJECT JOINT/BURSA CPT-4: 77429 08/21/2017 DRAIN/INJECT JOINT/BURSA CPT-4: 45718 08/12/2017 TRIAMCINOLONE ACET INJ NOS CPT-4: J3301 08/12/2017 DRAIN/INJECT JOINT/BURSA CPT-4: 64876 08/05/2017 TRIAMCINOLONE ACET INJ NOS CPT-4: J3301 08/05/2017 DRAIN/INJECT JOINT/BURSA CPT-4: 69248 07/23/2017 DRAIN/INJECT JOINT/BURSA CPT-4: 13547 07/09/2017 TRIAMCINOLONE ACET INJ NOS CPT-4: J3301 07/09/2017 PRESCRIP TRANSMIT VIA ERX SY CPT-4: G8553 07/09/2017 DRAIN/INJECT JOINT/BURSA CPT-4: 00072 07/01/2017 TRIAMCINOLONE ACET INJ NOS CPT-4: J3301 07/01/2017 PRESCRIP TRANSMIT VIA ERX SY CPT-4: G8553 07/01/2017 DRAIN/INJECT JOINT/BURSA CPT-4: 32002 06/17/2017 DRAIN/INJECT JOINT/BURSA CPT-4: 79680 04/02/2017 TRIAMCINOLONE ACET INJ NOS CPT-4: J3301 04/02/2017 DRAIN/INJECT JOINT/BURSA CPT-4: 05507 02/06/2017 ADMIN INFLUENZA VIRUS VAC CPT-4: G0008 12/08/2016 FLU VACC PRSV FREE INC ANTIG CPT-4: 48533 12/08/2016 PRESCRIP TRANSMIT VIA ERX SY CPT-4: G8553 12/08/2016 PRESCRIP TRANSMIT VIA ERX SY CPT-4: G8553 11/17/2016 TRIAMCINOLONE ACET INJ NOS CPT-4: J3301 10/02/2016 TRIAMCINOLONE ACET INJ NOS CPT-4: J3301 09/12/2016 DRAIN/INJECT JOINT/BURSA CPT-4: 33208 09/08/2016 TRIAMCINOLONE ACET INJ NOS CPT-4: J3301 09/08/2016 PRESCRIP TRANSMIT VIA ERX SY CPT-4: G8553 08/26/2016 PRESCRIP TRANSMIT VIA ERX SY CPT-4: G8553 08/18/2016 ADMIN INFLUENZA VIRUS VAC CPT-4: G0008 11/19/2015 FLU VACC PRSV FREE INC ANTIG Formatting Model/CDA Sections, Assigned to/Luanne Elaine CPT-4: 96534Kxxnwxn 11/19/2015 PRESCRIP TRANSMIT VIA ERX SY CPT-4: G8553 09/04/2015 PRESCRIP TRANSMIT VIA ERX SY CPT-4: G8553 2015 PRESCRIP TRANSMIT VIA ERX SY CPT-4: G8553 07/18/2015 PRESCRIP TRANSMIT VIA ERX SY CPT-4: G8553 07/02/2015 REMOVE IMPACTED EAR WAX UNI CPT-4: 73510 04/09/2015 PRESCRIP TRANSMIT VIA ERX SY CPT-4: G8553 02/08/2015 ADMIN INFLUENZA VIRUS VAC CPT-4: G0008 01/10/2015 FLU VACC PRSV FREE INC ANTIG Assigned to/Chele, Luanne, Formatting Model/CDA Sections CPT-4: 76476Djeoslf 01/10/2015 ADMIN PNEUMOCOCCAL VACCINE Assigned to, Formatting Model/CDA Sections SNOMED CT: 59643173 CPT-4: G9303Eyqdiie 12/11/2014 PNEUMOCOCCAL VACC [address]: 17291947 CPT-4: 33887 12/11/2014 Vital Signs Date Vital 12/24/2017 Blood Pressure 1: 115/58 Code : 8480-6 BMI: 23.5 Code : 72756-1 Heart Rate 1 : 58 bpm Height: 5'8" SpO2: 96% Weight: 152 lbs 11/30/2017 Blood Pressure 1: 122/70 Code : 8480-6 Heart Rate 1: 105 bpm Height: 5'8" SpO2: 98% Weight: 11/27/2017 Blood Pressure 1: 148/76 Code : 8480-6 Heart Rate 1: 72 bpm Height: 5'8" SpO2: 99% Weight: 11/10/2017 Blood Pressure 1: 130/76 Code : 8480-6 BMI: 27.3 Code : 98066-9 Heart Rate 1 : 98 bpm Height: [...] Code : 8480-6 BMI: 24.7 Code : 75079-5 Heart Rate 1 : 100 bpm Height: 5'8" SpO2: 95% Weight: 160 lbs 08/31/2017 Blood Pressure 1: 128/78 Code : 8480-6 BMI: 23.6 Code : 18382-0 Heart Rate 1 : 102 bpm Height: 5'8" SpO2: 96% Weight: 153 lbs 08/21/2017 Blood Pressure 1: 138/78 Code : 8480-6 Heart Rate 1: 97 bpm SpO2: 95% Weight: 156 lbs 2 oz 08/12/2017 Blood Pressure 1: 138/74 Code : 8480-6 BMI: 25.0 Code : 04430-4 Heart Rate 1 : 94 bpm Height: 5'8" SpO2: 98% Weight: 162 lbs 08/05/2017 Blood Pressure 1: 126/78 Code : 8480-6 BMI: 25.8 Code : 25452-4 Heart Rate 1 : 74 bpm Height: 5'8" SpO2: 96% Weight: 167 lbs 07/23/2017 Blood Pressure 1: 106/64 Code : 8480-6 BMI: 25.3 Code : 13573-8 Heart Rate 1 : 81 bpm Height: 5'8" SpO2: 99% Weight: 163 lbs 14 oz 07/09/2017 Blood Pressure 1: 130/68 Code : 8480-6 Heart Rate 1: 82 bpm Height: 5'8" SpO2: 98% Weight: 07/01/2017 Blood Pressure 1: 124/76 Code : 8480-6 BMI: 26.5 Code : 82131-4 Heart Rate 1 : 99 bpm Height: 5'8" SpO2: 98% Weight: 172 lbs 06/24/2017 Blood Pressure 1: 118/70 Code : 8480-6 Heart Rate 1: 103 bpm Height: 5'8" SpO2: 98% Weight: 06/17/2017 Blood Pressure 1: 110/64 Code : 8480-6 BMI: 25.0 Code : 48154-1 Heart Rate 1 : 73 bpm Height: 5'8" Weight: 162 lbs 06/01/2017 Blood Pressure 1: 158/84 Code : 8480-6 BMI: 24.4 Code : 34546-9 Heart Rate 1 : 94 bpm Height: 5'8" SpO2: 95% Weight: 158 lbs 04/02/2017 Blood Pressure 1: 164/80 Code : 8480-6 BMI: 23.1 Code : 08015-9 Heart Rate 1 : 76 bpm Height: 5'8" SpO2: 94% Weight: 150 lbs 03/12/2017 Blood Pressure 1: 130/74 Code : 8480-6 BMI: 23.0 Code : 46921-6 Heart Rate 1 : 92 bpm Height: 5'8" SpO2: 94% Weight: 149 lbs 02/06/2017 Height: Weight: 01/08/2017 Blood Pressure 1: 136/76 Code : 8480-6 BMI: 21.4 Code : 41937-7 Heart Rate 1 : 85 bpm Height: 5'8" SpO2: 98% Weight: 138 lbs 8 oz 12/08/2016 Blood Pressure 1: 132/66 Code : 8480-6 BMI: 22.2 Code : 34277-8 Heart Rate 1 : 106 bpm Height: 5'8" SpO2: 97% Weight: 144 lbs 11/17/2016 Blood Pressure 1: 146/80 Code : 8480-6 BMI: 22.4 Code : 05759-2 Heart Rate 1 : 100 bpm Height: 5'8" SpO2: 98% Weight: 145 lbs 11/10/2016 Blood Pressure 1: 122/62 Code : 8480-6 BMI: 22.2 Code : 14228-9 Height: 5'8" Weight: 144 lbs 11/05/2016 Blood Pressure 1: 146/80 Code : 8480-6 BMI: 22.2 Code : 79613-8 Heart Rate 1 : 77 bpm Height: 5'8" SpO2: 99% Weight: 144 lbs 10/07/2016 Blood Pressure 1: 132/68 Code : 8480-6 BMI: 22.8 Code : 93219-5 Heart Rate 1 : 90 bpm Height: 5'8" SpO2: 97% Weight: 148 lbs 10/02/2016 Blood Pressure 1: 166/86 Code : 8480-6 BMI: 22.8 Code : 63107-6 Heart Rate 1 : 96 bpm Height: 5'8" SpO2: 96% Weight: 148 lbs 09/12/2016 Blood Pressure 1: 130/86 Code : 8480-6 Height: Weight: 09/08/2016 Blood Pressure 1: 132/74 Code : 8480-6 BMI: 22.4 Code : 99968-3 Heart Rate 1 : 93 bpm Height: 5'8" SpO2: 99% Weight: 145 lbs 08/26/2016 Blood Pressure 1: 132/78 Code : 8480-6 BMI: 23.9 Code : 41142-5 Heart Rate 1 : 80 bpm Height: 5'8" SpO2: 94% Weight: 155 lbs 08/18/2016 Blood Pressure 1: 130/70 Code : 8480-6 BMI: 23.6 Code : 55743-9 Heart Rate 1 : 100 bpm Height: 5'8" SpO2: 94% Weight: 153 lbs 07/30/2016 Blood Pressure 1: 144/84 Code : 8480-6 BMI: 22.4 Code : 13833-2 Heart Rate 1 : 86 bpm Height: 5'8" SpO2: 97% Weight: 145 lbs 07/14/2016 Blood Pressure 1: 122/74 Code : 8480-6 BMI: 22.5 Code : 08704-2 Heart Rate 1 : 87 bpm Height: 5'8" SpO2: 97% Weight: 146 lbs 07/04/2016 Blood Pressure 1: 128/78 Code : 8480-6 BMI: 22.5 Code : 51280-9 Heart Rate 1 : 98 bpm Height: 5'8" Weight: 146 lbs 06/26/2016 Blood Pressure 1: 122/68 Code : 8480-6 BMI: 22.5 Code : 56730-0 Heart Rate 1 : 102 bpm Height: 5'8" SpO2: 98% Weight: 146 lbs 05/28/2016 Blood Pressure 1: 122/68 Code : 8480-6 BMI: 22.4 Code : 28284-9 Heart Rate 1 : 89 bpm Height: 5'8" SpO2: 97% Weight: 145 lbs 03/18/2016 Blood Pressure 1: 132/66 Code : 8480-6 BMI: 22.8 Code : 26666-8 Heart Rate 1 : 96 bpm Height: 5'8" SpO2: 98% Weight: 148 lbs 01/29/2016 Blood Pressure 1: 122/66 Code : 8480-6 BMI: 22.2 Code : 73042-4 Heart Rate 1 : 90 bpm Height: 5'8" SpO2: 99% Weight: 144 lbs 01/01/2016 Blood Pressure 1: 148/82 Code : 8480-6 BMI: 22.5 Code : 99854-8 Heart Rate 1 : 82 bpm Height: 5'8" Weight: 146 lbs 11/19/2015 Blood Pressure 1: 140/74 Code : 8480-6 BMI: 23.7 Code : 16313-2 Heart Rate 1 : 79 bpm Height: 5'8" SpO2: 96% Weight: 153 lbs 8 oz 11/01/2015 Blood Pressure 1: 118/72 Code : 8480-6 Heart Rate 1: 90 bpm Height: 5'8" SpO2: 95% 09/04/2015 Blood Pressure 1: 136/72 Code : 8480-6 BMI: 23.1 Code : 63141-0 Heart Rate 1 : 97 bpm Height: 5'8" SpO2: 98% Weight: 149 lbs 8 oz 2015 Blood Pressure 1: 144/76 Code : 8480-6 BMI: 22.8 Code : 91456-0 Heart Rate 1 : 75 bpm Height: 5'8" SpO2: 97% Weight: 148 lbs 07/18/2015 Blood Pressure 1: 132/60 Code : 8480-6 BMI: 23.1 Code : 43547-5 Heart Rate 1 : 78 bpm Height: 5'8" Weight: 150 lbs 07/02/2015 Blood Pressure 1: 156/86 Code : 8480-6 BMI: 23.0 Code : 22668-6 Heart Rate 1 : 75 bpm Height: 5'8" SpO2: 99% Weight: 149 lbs 05/31/2015 Blood Pressure 1: 136/72 Code : 8480-6 BMI: 22.7 Code : 13958-6 Heart Rate 1 : 85 bpm Height: 5'8" SpO2: 97% Weight: 147 lbs 04/09/2015 Blood Pressure 1: 118/60 Code : 8480-6 BMI: 22.7 Code : 16431-8 Heart Rate 1 : 72 bpm Height: 5'8" SpO2: 95% Weight: 147 lbs 02/08/2015 Blood Pressure 1: 138/76 Code : 8480-6 BMI: 23.1 Code : 76622-4 Heart Rate 1 : 80 bpm Height: 5'8" SpO2: 98% Weight: 150 lbs 12/11/2014 Blood Pressure 1: 120/74 Code : 8480-6 BMI: 22.1 Code : 51084-0 Heart Rate 1 : 92 bpm Height: 5'8" SpO2: 96% Weight: 143 lbs 11/09/2014 Blood Pressure 1: 100/64 Code : 8480-6 BMI: 21.6 Code : 30061-2 Heart Rate 1 : 88 bpm Height: 5'8" Weight: 140 lbs 10/23/2014 Blood Pressure 1: 138/82 Code : 8480-6 BMI: 23.6 Code : 89593-8 Heart Rate 1 : 86 bpm Height: 5'8" Weight: 153 lbs 10/16/2014 Blood Pressure 1: 128/60 Code : 8480-6 BMI: 23.3 Code : 36045-5 Heart Rate 1 : 91 bpm Height: 5'8" SpO2: 99% Weight: 151 lbs 10/09/2014 Blood Pressure 1: 120/60 Code : 8480-6 BMI: 23.0 Code : 25676-7 Heart Rate 1 : 96 bpm Height: 5'8" SpO2: 97% Weight: 149 lbs 09/14/2014 Blood Pressure 1: 132/72 Code : 8480-6 BMI: 22.1 Code : 62449-0 Heart Rate 1 : 84 bpm Height: 5'8" SpO2: 97% Weight: 143 lbs 08/11/2014 Blood Pressure 1: 134/74 Code : 8480-6 BMI: 24.1 Code : 09084-4 Heart Rate 1 : 88 bpm Height: 5'8" Weight: 156 lbs 07/12/2014 Blood Pressure 1: 122/62 Code : 8480-6 BMI: 22.7 Code : 54683-5 Heart Rate 1 : 76 bpm Height: [...] Dr. Blancas in [place] and Neurosurgeon in [place] in the past neck pain Significant Medical Conditions spinal stenosis 07/12/2014 has osteoarthritis Advance Directives No Advance Directive data Encounters Encounter Performer Location Codes Date ( EST. PATIENT, LEVEL IV Diagnosis: Essential (primary) hypertension[ICD10: I10] Diagnosis: Generalized edema[ICD10: R60.1] Diagnosis: Chronic pain syndrome[ICD10: G89.4] Araceli Silva MD, [facility] CPT-4: 40886 12/24/2017 ([id number]) 69408 EST. PATIENT, LEVEL III Diagnosis: Lymphedema, not elsewhere classified[ICD10: I89.0] Araceli Silva MD, [facility] CPT-4: 68540 11/30/2017 ([id number]) 93850 EST. PATIENT, LEVEL III Diagnosis: Generalized edema[ICD10: R60.1] Ila Silva MD, [facility] CPT-4: 68348 11/27/2017 ([id number]) 34527 EST. PATIENT, LEVEL IV Diagnosis: Localized edema[ICD10: [...] in left shoulder[ICD10: M25.512] Araceli Silva MD, [facility] CPT-4: 96691 11/10/2017 ([id number]) 58819 EST. PATIENT, LEVEL IV Diagnosis: Localized edema[ICD10: [...] in left shoulder[ICD10: M25.512] Araceli Silva MD, [facility] CPT-4: 18053 10/29/2017 ([id number]) 23214 EST. PATIENT, LEVEL IV Diagnosis: Essential (primary) [...] Diagnosis: Localized edema[ICD10: R60.0] Araceli Silva MD, [facility] CPT- 4: 34907 10/20/2017 ([id number]) 47214 EST. 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 CPT-4: 89228 09/29/2017 ([id number]) 60039 EST. PATIENT, LEVEL IV Diagnosis: Primary osteoarthritis, left shoulder[ICD10: M19.012] Diagnosis: Pain in left shoulder[ICD10: M25.512] Diagnosis: Lymphedema, not elsewhere classified[ICD10: I89.0] Diagnosis: Localized edema[ICD10: R60.0] Diagnosis: Chronic atrial fibrillation[ICD10: I48.2] Araceli Silva MD, [facility] CPT-4: 96571 09/15/2017 ([id number]) 68385 EST. PATIENT, LEVEL III Diagnosis: Primary osteoarthritis, left shoulder[ICD10: M19.012] Diagnosis: Pain in left shoulder[ICD10: M25.512] Diagnosis: Hemarthrosis, left shoulder[ICD10: M25.012] Araceli Silva MD, [facility] CPT-4: 26207 08/31/2017 ([id number]) 95066 EST. 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 CPT-4: 00839 08/05/2017 ([id number]) 03170 EST. PATIENT, LEVEL III Diagnosis: Localized edema[ICD10: R60.0] Araceli Silva MD, [facility] CPT- 4: 98693 07/23/2017 ([id number]) 76417 EST. PATIENT, LEVEL III Diagnosis: Rheumatoid arthritis without rheumatoid factor, left shoulder[ICD10: M06.012] Diagnosis: Hemarthrosis, left shoulder[ICD10: M25.012] Araceli Silva MD, [facility] CPT-4: 39115 07/09/2017 ([id number]) 46860 EST. PATIENT, LEVEL III Diagnosis: Chronic pain syndrome[ICD10: G89.4] Diagnosis: Rheumatoid arthritis without rheumatoid factor, left shoulder[ICD10: M06.012] Diagnosis: Hemarthrosis, left shoulder[ICD10: M25.012] Diagnosis: Lymphedema, not elsewhere classified[ICD10: I89.0] Araceli Silva MD, [facility] CPT-4: 97205 07/01/2017 ([id number]) 78002 EST. PATIENT, LEVEL III Diagnosis: Chronic pain syndrome[ICD10: G89.4] Araceli Silva MD, [facility] CPT-4: 85029 06/24/2017 ([id number]) 74660 EST. 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 CPT-4: 66543 06/17/2017 66430 EST. PATIENT, LEVEL III Diagnosis: Pain in left shoulder[ICD10: M25.512] Diagnosis: Hemarthrosis, right shoulder[ICD10: M25.011] Diagnosis: Hemarthrosis, left shoulder[ICD10: M25.012] Maricel Silva MD, [facility] CPT-4: 83776 06/01/2017 ([id number]) 01391 EST. PATIENT, LEVEL II Diagnosis: Pain in right shoulder[ICD10: M25.511] Diagnosis: Hemarthrosis, right shoulder[ICD10: M25.011] Araceli Silva MD, [facility] CPT-4: 50014 04/02/2017 ([id number]) 59979 EST. 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 CPT-4: 78847 2017 ([id number]) 74538 EST. 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 CPT- 4: 87986 01/08/2017 ([id number]) 03826 EST. PATIENT, LEVEL IV Diagnosis: Encounter for immunization[ICD10: Z23] Diagnosis: Chronic pain syndrome[ICD10: G89.4] Diagnosis: Essential (primary) hypertension[ICD10: I10] Araceli Silva MD, [facility] CPT-4: 47623 12/08/2016 ([id number]) 90585 EST. PATIENT, LEVEL III Diagnosis: Urge incontinence[ICD10: N39.41] Diagnosis: Chronic pain syndrome[ICD10: G89.4] Diagnosis: Lymphedema, not elsewhere classified[ICD10: I89.0] Araceli Silva MD, [facility] CPT-4: 24535 11/17/2016 43514 EST. 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 CPT-4: 31127 11/10/2016 ([id number]) 17552 EST. PATIENT, LEVEL IV Diagnosis: Essential (primary) hypertension[ICD10: I10] Diagnosis: Other chronic pain[ICD10: G89.29] Diagnosis: Localized edema[ICD10: R60.0] Diagnosis: Urge incontinence[ICD10: N39.41] Araceli Silva MD, [facility] CPT-4: 01732 11/05/2016 ([id number]) 51709 EST. 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 CPT-4: 32928 10/07/2016 ([id number]) 18191 EST. PATIENT, LEVEL III Diagnosis: Hemarthrosis, right shoulder[ICD10: M25.011] Diagnosis: Pain in right shoulder[ICD10: M25.511] Ila Silva MD [facility] CPT-4: 79465 10/02/2016 [id number] EST. PATIENT, LEVEL II Diagnosis: Low back pain[ICD10: M54.5] Diagnosis: Sacroiliitis, not elsewhere classified[ICD10: M46.1] Ila Silva MD [facility] CPT-4: 89707 09/12/2016 ([id number]) 37270 EST. PATIENT, LEVEL III Diagnosis: Hemarthrosis, right shoulder[ICD10: M25.011] Diagnosis: Other chronic pain[ICD10: G89.29] Araceli Silva MD [facility] CPT-4: 54920 09/08/2016 ([id number]) 86233 EST. PATIENT, LEVEL IV Diagnosis: Other iron deficiency anemias[ICD10: D50.8] Diagnosis: Vitamin D deficiency, unspecified[ICD10: E55.9] Diagnosis: Hypomagnesemia[ICD10: E83.42] Araceli Silva MD, [facility] CPT- 4: 18724 08/26/2016 ([id number]) 69440 EST. PATIENT, LEVEL III Diagnosis: Localized edema[ICD10: R60.0] Araceli Silva MD [facility] CPT- 4: 92689 08/18/2016 ([id number]) 91005 EST. 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 CPT- 4: 21661 07/30/2016 04039 EST. PATIENT, LEVEL IV Diagnosis: Pain in left shoulder[ICD10: M25.512] Diagnosis: Nocturia[ICD10: R35.1] Maricel Silva MD [facility] CPT-4: 74265 07/14/2016 50843 EST. PATIENT, LEVEL III Diagnosis: Pain in left shoulder[ICD10: M25.512] Maricel Silva MD, [facility] CPT-4: 86997 07/04/2016 ([id number]) 24249 EST. 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 CPT-4: 75531 06/26/2016 ([id number]) 48751 EST. 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 CPT-4: 67806 05/28/2016 ([id number]) 42339 EST. 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 CPT-4: 31656 03/18/2016 ([id number]) 44047 EST. 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 CPT-4: 55245 01/29/2016 ([id number]) 86365 EST. 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 CPT-4: 04728 01/01/2016 ([id number]) 21465 EST. 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 CPT-4: 25752 11/19/2015 29042 EST. PATIENT, LEVEL II Diagnosis: Insect bite (nonvenomous) of right upper arm, initial encounter[ICD10 : S40.861A] Ila Silva MD, [facility] CPT-4: 57687 11/01/2015 ([id number]) [id number] EST. 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 CPT-4: 90358 09/04/2015 ([id number]) [id number] EST. PATIENT, LEVEL III Diagnosis: Contusion of left upper arm, subsequent encounter[ICD10: S40.022D] Araceli Silva MD, [facility] CPT-4: 00996 2015 [id number] EST. PATIENT, LEVEL III Diagnosis: Cellulitis of left upper limb[ICD10: L03.114] Maricel Silva MD, [facility] CPT-4: 04135 07/18/2015 ([id number]) 25863 EST. 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 CPT- 4: 08578 07/02/2015 ([id number]) 07124 EST. 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 CPT-4: 67374 05/31/2015 ([id number]) 94206 EST. 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 CPT-4: 48772 04/09/2015 ([id number]) 38456 EST. PATIENT, LEVEL IV Diagnosis: Essential (primary) hypertension[ICD10: I10] Diagnosis: Vitamin D deficiency, unspecified[ICD10: E55.9] Diagnosis: Mixed hyperlipidemia[ICD10: E78.2] Diagnosis: Age-related osteoporosis with current pathological fracture, unspecified site, sequela[ICD10: M80.00XS] Araceli Silva MD, [facility] CPT- 4: 63124 02/08/2015 ([id number]) 04530 EST. PATIENT, LEVEL IV Diagnosis: Essential (primary) hypertension[ICD10: I10] Diagnosis: Localized edema[ICD10: R60.0] Diagnosis: Primary osteoarthritis, unspecified site[ICD10: M19.91] Araceli Sliva MD, [facility] CPT-4: 51131 12/11/2014 ([id number]) 93349 EST. PATIENT, LEVEL III Diagnosis: EDEMA[ICD9: 782.3] Diagnosis: ESSENTIAL HYPERTENSION[ICD9: 401.9] Araceli Silva MD, [facility] CPT-4: 92589 11/09/2014 ([id number]) 39904 EST. PATIENT, LEVEL III Diagnosis: Leg pain[ICD9: 729.5] Diagnosis: Ulcer of toe[ICD9: 707.15] Araceli Silva MD [facility] CPT- 4: 92887 10/23/2014 ([id number]) 99157 EST. PATIENT, LEVEL III Diagnosis: Ulcer of toe[ICD9: 707.15] DIANNE Patterson MD CPT- 4: 63126 10/16/2014 49374 EST. PATIENT, LEVEL II Diagnosis: Ulcer of toe[ICD9: 707.15] Ila Kennedy Araceli Silva MD [facility] CPT-4: 23377 10/09/2014 ([id number]) 78516 EST. PATIENT, LEVEL III Diagnosis: EDEMA[ICD9: 782.3] Araceli Silva MD [facility] CPT-4: 11606 09/14/2014 ([id number]) 43764 EST. PATIENT, LEVEL IV Diagnosis: EDEMA[ICD9: 782.3] Diagnosis: ESSENTIAL HYPERTENSION[ICD9: 401.9] Araceli Silva MD, [facility] CPT-4: 85866 08/11/2014 ([id number]) OFFICE VISIT, NEW - LEVEL 4 Diagnosis: HYPERLIPIDEMIA[ICD9: 272.4] Diagnosis: VITAMIN D DEFICIENCY[ICD9: 268.9] Diagnosis: Osteoporosis[ICD9: 733.00] Diagnosis: Esophageal reflux[ICD9: 530.81] Diagnosis: Chronic pain[ICD9: 338.29] Araceli Silva MD, [facility] CPT- 4: 42012 07/12/2014 Plan of Care Planned Activity Notes [...] oxycodone scheduled. 12/24/2017 Appointment: Araceli Silva WPtel: [address] [place], [place] [address] (30 min) Complex 12/24/2017 Patient Education: Patient [...] output. 11/30/2017 [phone] ([facility]) Moderate 11/30/2017 Patient Education: [...] of over-medication. 11/10/2017 App[facility]ment: [phone] ([facility] min) Moderate 11/10/2017 Patient Education: Patient [...] severe RA of hands/fingers. We will contact [employer] [place] for paperwork regarding the scooter. 10/29/2017 App[facility]ment: [phone] ([facility] min) Moderate 10/29/2017 Patient Education: [...] time. 10/20/2017 App[facility]ment: [phone] ([facility] min) Complex 10/20/2017 Patient Education: [...] today. 09/29/2017 Appointment: [phone] [place] (15 min) Moderate 09/29/2017 Patient [...] Summary Completed 08/21/2017 Appointment: Araceli Silva WPtel: [facility] (15 min) Moderate 08/20/2017 Visit Plan: Hemarthrosis shoulders - 250mL from left shoulder and 100mL from right shoulder with 1ml kenalog injected into right and left shoulders - Left and right shoulder pain and swelling, swelling into arms and left breast -pt to continue with use of compression sleeves. [id number] sep 2018 bristol 2ml kenalog 08/12/2017 Appointment: Araceli Silva WPtel: [facility] ([facility] min) Moderate 08/12/2017 Patient Education: [...] edema. 08/05/2017 Appointment: Araceli Silva WPtel: [phone] [facility] (15 min) Moderate 08/05/2017 Patient Education: Patient [...] peripheral edema. 07/23/2017 Appointment: Araceli Silva WPtel: [facility] (15 min) Moderate 07/23/2017 Patient Education: Patient [...] monitor symptoms. 07/09/2017 Appointment: [phone] [facility] [place] (15 min) Moderate 07/09/2017 Patient Education: Patient Medication Summary Completed 07/09/2017 Referral: [facility] WPtel: Referral Initiated 07/08/2017 Visit [...] monitor symptoms. 07/01/2017 Appointment: [facility]el[phone] [facility] [place] (15 min) Moderate 07/01/2017 Patient Education: Patient Medication Summary Completed 07/01/2017 Visit Plan: Chronic Pain Syndrome - pt has chronic pain - has been maintained on current medications, has not sought out other medications , only uses PRN pain medications as directed, and understands the consequences of over-medication. 06/24/2017 Appointment: [facility]el[phone] [place] (15 min) Moderate 06/24/2017 Patient [...] edema. 06/17/2017 Appointment: [facility]el[phone] [facility] [place] (30 min) Complex 06/17/2017 Patient Education: Patient Medication Summary Completed 06/17/2017 App[facility]ment: [facility]el[phone] [facility] [place] (15 min) Moderate 06/08/2017 Care Plan: Referral Order SNOMED-CT : [id number] Pending 06/02/2017 Visit Plan: Left and right [...] edema. 06/01/2017 Appointment: Maricel Gee WPtel: [phone] [facility] [place] (30 min) Complex 06/01/2017 Patient Education: [...] shoulder 04/02/2017 Appointment: Araceli Silva WPtel: [phone] [facility] [place] (15 min) Moderate 04/02/2017 Patient Education: [...] upset. 03/12/2017 Appointment: Araceli Silva WPtel: [phone] [facility] [place] (15 min) Moderate 03/12/2017 Patient Education: [...] check ROMIE. 01/08/2017 Appointment: [facility]Ptel[facility] (15 min) Moderate 01/08/2017 Patient Education: [...] with Remicaide. 12/08/2016 Appointment: [facility] Silva [facility]Ptel[facility] [address] [facility] [place] (15 min) Moderate 12/08/2016 Patient [...] for now 11/17/2016 Appointment: Araceli Silva WPtel: [facility]4 [facility] (15 min) Moderate 11/17/2016 Patient Education: Patient [...] of over-medication. 11/10/2016 Appointment: Maricel Gee WPtel: [facility] (30 min) Complex 11/10/2016 Patient Education: Patient [...] steroids, immunosuppression. 11/05/2016 Appointment: [facility]Ptel[phone] [facility] (15 min) Moderate 11/05/2016 Patient Education: Patient [...] cbc today. 10/07/2016 Appointment: Araceli Silva WPtel: [facility] (15 min) Moderate 10/07/2016 Patient Education: Patient Medication Summary Completed 10/07/2016 Care Plan: Referral Order SNOMED-CT : [id number] Pending 10/07/2016 Care Plan: Referral Order SNOMED-CT : [id number] Pending 10/07/2016 Visit Plan: Hemarthrosis -right shoulder-only able to drain 5ml of bloody drainage-unable to give oral steroids due to recent GI bleed -will give kenalog injection today in the office-discussed getting OSMO patch 10/02/2016 Appointment: Ila Kennedy WPtel: [address] [place], [place] [phone] [place] (30 min) Complex 10/02/2016 Patient Education: Patient Medication Summary Completed 10/02/2016 Appointment: Araceli iSlva WPtel: [facility] [place] (15 min) Moderate 09/23/2016 Appointment: Araceli Silva WPtel: [address] [place], [place] [address] [place] (15 min) Moderate 09/17/2016 Visit Plan: Sacroiliitis - back exercises discussed with the patient, pt to continue with anti-inflammatories. Pt is to call if the symptoms do not improve or if they worsen. Kenalog injection today in the office. 09/12/2016 Appointment: Ila Kennedy WPtel: [phone] [place] (15 min) Moderate 09/12/2016 Patient Education: Patient Medication Summary Completed 09/12/2016 Visit Plan: Hemarthrosis - drain right shoulder. Injection of kenalog 1mL - 40mg - [employer] [place] - lot #[id number] , expires oct 2017 Chronic Pain Syndrome [...] of over-medication. 09/08/2016 Appointment: [facility]Ptel[phone] [facility] [place] (15 min) Moderate 09/08/2016 Patient [...] magnesium level 08/26/2016 Appointment: Araceli Silva WPtel: [facility] [place] (15 min) Moderate 08/26/2016 Patient [...] Summary Completed 08/18/2016 Appointment: [facility]Ptel[phone] [facility] [place] (15 min) Moderate 08/13/2016 Appointment: [facility] Silva [facility]Ptel[phone] [facility] [place] (15 min) Moderate 08/06/2016 Visit Plan: Chronic [...] the daytime. 07/30/2016 Appointment: Araceli Silva WPtel: [facility] (15 min) Moderate 07/30/2016 Patient Education: Patient Medication Summary Completed 07/30/2016 Visit Plan: Left shoulder pain - improving - pt is to notify clinic if symptoms do not improve, if they worsen, or with any questions or concerns. Nocturia - will give samples, pt is to notify clinic if symptoms do not improve. 07/14/2016 Appointment: Maricel Gee WPtel: [facility] (30 min) Complex 07/14/2016 Patient Education: Patient [...] any dyspnea. 07/04/2016 Appointment: Maricel Gee WPtel: [facility] (30 min) Complex 07/04/2016 Patient Education: Patient [...] medication. 06/26/2016 Appointment: [facility] Silva [facility]Ptel: [phone] [place] (15 min) Moderate 06/26/2016 Patient [...] of over-medication. 05/28/2016 Appointment: [facility]eli Silva WPtel: [phone] [facility] [place] (15 min) Moderate 05/28/2016 Patient Education: Patient Medication Summary Completed 05/28/2016 Patient Education: Hypertension Completed 05/28/2016 Appointment: [facility] Silva [facility]Ptel: [phone] [place] (15 min) Moderate 05/12/2016 Appointment: [facility] Silva [facility]Ptel: [phone] [place] (15 min) Moderate 04/15/2016 Appointment: [facility] Silva [facility]Ptel: [phone] [facility] [place] (30 min) Complex 03/25/2016 Visit Plan: Hypertension [...] the premarin. 03/18/2016 Appointment: [facility]eli Silva [facility]Ptel[phone] [facility] (30 min) Complex 03/18/2016 Patient Education: Patient Medication Summary Completed 03/18/2016 Appointment: Araceli Silva WPtel: [facility]3 [facility] (15 min) Moderate 02/19/2016 Visit Plan: Hypertension [...] of over-medication. 01/29/2016 Appointment: Araceli Silva WPtel: [facility]4 [facility] (15 min) Moderate 01/29/2016 Patient Education: Patient Medication Summary Completed 01/29/2016 Visit Plan: Discussed MRI of the neck - pt is interested in doing this - however, not prior to changing her medication first to see if this helps her pain 01/01/2016 Appointment: Araceli Silva WPtel: [facility]3 [facility] (15 min) Moderate 01/01/2016 Patient Education: Patient Medication Summary Completed 01/01/2016 Patient Education: Hypertension Completed 01/01/2016 Appointment: Araceli Silva WPtel: [facility] [place] (15 min) Moderate 12/03/2015 Visit Plan: [...] or nonhealing. 11/01/2015 Appointment: Ila Kennedy WPtel: [facility]3 [phone] (15 min) Moderate 11/01/2015 Patient Education: Patient Medication Summary Completed 11/01/2015 Visit Plan: Chronic Pain Syndrome - pt has chronic pain - has been maintained on current medications, has not sought out other medications , only uses PRN pain medications as directed, and understands the consequences of over-medication. Muscle spasms - recommended muscle rub. 09/04/2015 Appointment: Araceli Silva WPtel: [address] [place], [place] [phone] (15 min) Moderate 09/04/2015 Patient Education: Patient Medication Summary Completed 09/04/2015 Visit Plan: Ecchymosis/hematoma - improving - discussed natural progression of hematomas - watchful waiting. 2015 Appointment: Araceli Silva WPtel: [address] [place], [place] [phone] (15 min) Moderate 2015 Patient Education: Patient Medication Summary Completed 2015 Visit Plan: Cellulitis - continue with oral antibiotics as previously directed, return to clinic as previously directed, call for acute change in symptoms, worsening redness, warmth, discharge. 07/18/2015 Appointment: Ila Kennedy WPtel: [phone] (30 min) Complex 07/18/2015 Patient Education: Patient [...] center/surgery center. 07/02/2015 Appointment: Araceli Silva WPtel: [address] [place], [place] [address] (15 min) Moderate 07/02/2015 Patient Education: Patient [...] with ambulation. 04/09/2015 Appointment: Araceli Silva WPtel: [facility]6[address] (15 min) Moderate 04/09/2015 Patient Education: Patient [...] supplementation. 02/08/2015 Appointment: Araceli Silva WPtel: [phone] [facility] (15 min) Moderate 02/08/2015 Patient Education: Patient [...] 1/2 pill in the evening. 12/11/2014 Appointment: Arcaeli Silva WPtel: [address] [place], [place] [phone] (15 min) Moderate 12/11/2014 Patient Education: Patient [...] - improved. 11/09/2014 Appointment: Araceli Silva WPtel: [facility] (15 min) Moderate 11/09/2014 Patient Education: Patient Medication Summary Completed 11/09/2014 Patient Education: Hypertension Completed 11/09/2014 Visit Plan: Leg pain/cellulitis of leg - start on the doxycycline twice daily - take this x 2 weeks, if the symptoms in your leg/ thigh are not completely resolved, there is a refill that is available. start on a probiotic one pill daily ([employer] or [employer]) this will help prevent the development of a bad type of diarrhea that can occur when taking antibiotics. Ulcer of toe - improving. 10/23/2014 Appointment: Araceli Silva WPtel: [facility] (15 min) Moderate 10/23/2014 Patient Education: Patient Medication Summary Completed 10/23/2014 Visit Plan: Ulcer - keep lesion covered, antibiotic ointment to be used, monitor - call if redness increases or starts streaking up the foot. 10/16/2014 Appointment: Araceli Silva WPtel: [facility]4 [facility] (15 min) Moderate 10/16/2014 Patient Education: Patient [...] peripheral edema. 09/14/2014 Appointment: Araceli Silva WPtel: [facility] Follow up 09/14/2014 Patient Education: Patient Medication [...] medication. 07/12/2014 Appointment: [facility]Ptel[phone] [place] ([place]) New Patient 07/12/2014 Patient Education: Patient Medication Summary Completed 07/12/2014 Patient Education: Hypertension Completed 07/12/2014 Referral: Dr Virgen Referral Completed Referral: External, Ordering Provider Referral Completed Referral: [facility] WPtel: Referral Initiated Instructions Comment . Edema - pt has been advised [...] start on a probiotic one pill daily ([employer] or [employer]) this will help prevent the development of a bad type of diarrhea that can occur when taking antibiotics. . Leg pain/cellulitis of leg - start on the doxycycline twice daily - take this x 2 weeks, if the symptoms in your leg/thigh are not completely resolved, there is a refill that is available. start on a probiotic one pill daily ([employer] or [employer]) this will help prevent the development of [...] and 1/2 pill in the evening. . Hemarthrosis - drain right shoulder. Injection of kenalog 1mL - 40mg - [employer] [place] - lot #[id number] , expires oct 2017 Chronic Pain Syndrome [...] and understands the consequences of over-medication. . Chronic neck pain, arthritis, right arm [...] understands the consequences of over-medication. . Hemarthrosis shoulders - 175mL from left [...] further attempt to reduce peripheral edema. . Lymphedema of upper and lower extremities with hx of Afib with heart failure - I have recommended pt to have a hospital bed with air mattress Pt did not need joints drained today. . Hemarthrosis -right shoulder-only able to drain 5ml of bloody drainage-unable to give oral steroids due to recent GI bleed-will give kenalog injection today in the office-discussed getting OSMO patch . Fatigue and Anemia - recommended stat [...] Ambrocio's associate. Continue with steroids, immunosuppression. . Hemarthrosis - pt was prepped and [...] - continue with vitamin d supplementation. . Hypertension - well controlled - continue [...] and 1/2 pill in the evening. . Chronic Pain Syndrome - pt has chronic pain - has been maintained on current medications, has not sought out other medications, only uses PRN pain medications as directed, and understands the consequences of over- medication. . Tick Bite - pt given script for treatment of infected tick bite, call for symptoms of worsening infection or nonhealing. . Left shoulder pain - ecchymosis of [...] or with any dyspnea. . Hemarthrosis - drain right shoulder. Chronic Pain Syndrome - pt has chronic pain - has been maintained on current medications, has not sought out other medications, only uses PRN pain medications as directed, and understands the consequences of over-medication. . Tick Bite - pt given script [...] of removal of blood from shoulder . Iron deficiency Anemia - recommended pt [...] or starts streaking up the foot. . Chronic Pain Syndrome - pt has [...] Inflammatory Arthritis - continue with Remicaide. . Hypertension - well controlled - continue [...] further attempt to reduce peripheral edema. . Urge Incontinence - continue with myrbetric [...] hands/fingers. We will contact [employer] [place] for paperwork regarding the scooter. . Hypertension [...] to continue with use of compression sleeves. [id number] sep 2018 bristol 2ml kenalog . Hypertension [...] further attempt to reduce peripheral edema. . Hypertension - well controlled - continue [...] - continue with fentanyl and oxycodone scheduled. . Hemarthrosis shoulders - 70mL from left [...] directed, and understands the consequences of over-medication. two old goats muscle rub from [employer] [facility]. . Chronic Pain Syndrome [...] the pt through the cancer center/surgery center. we are going to check the iron [...] worsen. Kenalog injection today in the office. . Hemarthrosis shoulders - 120mL from left shoulder and no fluid from right shoulder with 1ml kenalog injected into right and left shoulders - Left and right shoulder pain and swelling, swelling into arms and left breast -pt to continue with use of compression sleeves.
--- OUTSIDE RECORDS SUMMARY | 2018-01-25 17:23 | XMS REPORT | CCD ---
Author Author [facility] Silva Organization [facility] Address [address] [place] [address] Phone Care Team Providers Care Kennel Technician Name Role Phone PP Unavailable CCM Unavailable Summary Purpose Interface Exchange Insurance Providers Payer name Policy type / Coverage type Covered green party ID Effective Begin Date Effective End Date [employer] [employer] Medicare Part B [id number] 2017 Unknown AET[employer] Medicare Part B [id number] Unknown Family history Father Diagnosis Age At [...] Unknown Retired 07/12/[address]: 3272453 Quit over 10 years ago 1967 07/12/2014 [...] Start Date Stop Date Status Fill Instructions Cardizem CD 360 mg capsule,extended release RxNorm: 885065 1 Capsule(s) PO daily 01/05/2018 05/04/2018 Active potassium chloride ER 10 mEq tablet,extended release(part/ cryst) RxNorm: 7790540 2 Capsule(s) PO TID when taking lasix 01/05/2018 05/04/2018 Active potassium chloride ER 10 mEq capsule,extended release RxNorm: 423151 Capsule(s) TAKE 1 CAPSULE BY MOUTH TWICE DAILY WHEN TAKING LASIX (FUROSEMIDE) 11/27/2017 No Stop Date Active fentanyl 25 mcg/hr transdermal patch RxNorm: 796911 1 Patch TD Q72H use with 100mcg patch for a total of 125mcg daily 11/27/2017 12/26/2017 Inactive fentanyl 100 mcg/hr transdermal patch RxNorm: 703813 1 Patch TD Q72H use with 25mcg/hr patch 11/27/2017 12/26/2017 Inactive potassium chloride ER 10 mEq capsule,extended release RxNorm: 144033 Capsule(s) TAKE 1 CAPSULE BY MOUTH TWICE DAILY WHEN TAKING LASIX (FUROSEMIDE) 11/27/2017 11/26/2017 Inactive bumetanide 0.5 mg tablet RxNorm: 992511 1 Tablet(s) PO daily 12/23/2017 Inactive in the afternoon x 3 days then as needed per Dr Silva oxycodone 30 mg tablet RxNorm: 1932047 1/2 Tablet(s) PO Q6 12/27/2017 Inactive Lasix 20 mg tablet RxNorm: 740353 TAKE 1 TABLET BY MOUTH TWICE DAILY 10/29/2017 No Stop Date Active fentanyl 100 mcg/hr transdermal patch RxNorm: 068975 1 Patch TD Q72H use with 25mcg/hr patch 10/29/2017 11/26/2017 Inactive fentanyl 25 mcg/hr transdermal patch RxNorm: 783947 1 Patch TD Q72H use with 100mcg patch for a total of 125mcg daily 10/29/2017 11/26/2017 Inactive pantoprazole 40 mg tablet,delayed release RxNorm: 201195 Tablet(s) Take 1 tablet by mouth daily 10/21/2017 04/18/2018 Active - Ref: [id number] potassium chloride ER 10 mEq capsule,extended release RxNorm: 499246 TAKE 1 CAPSULE BY MOUTH TWICE DAILY WHEN TAKING LASIX (FUROSEMIDE) 10/09/2017 11/26/2017 Inactive fentanyl 25 mcg/hr transdermal patch RxNorm: 836600 1 Patch TD Q72H use with 100mcg patch for a total of 125mcg daily 10/01/2017 10/28/2017 Inactive fentanyl 100 mcg/hr transdermal patch RxNorm: 129172 1 Patch TD Q72H use with 25mcg/hr patch 10/01/2017 10/28/2017 Inactive potassium chloride ER 10 mEq tablet,extended release(part/ cryst) RxNorm: 4327169 1 Capsule(s) PO BID when taking lasix 09/22/2017 01/04/2018 Inactive fentanyl 100 mcg/hr transdermal patch RxNorm: 559312 1 Patch TD Q72H use with 25mcg/hr patch 08/31/2017 09/29/2017 Inactive Kenalog 40 mg/mL suspension for injection RxNorm: 8453571 1 Milliliter(s) Inj 08/31/2017 08/31/2017 Inactive fentanyl 25 mcg/hr transdermal patch RxNorm: 963276 1 Patch TD Q72H use with 100mcg patch for a total of 125mcg daily 08/31/2017 09/29/2017 Inactive oxycodone 30 mg tablet RxNorm: 9739883 1/2 Tablet(s) PO Q6 04/201710/28/2017 Inactive cyanocobalamin (vit B-12) 1,000 mcg/mL injection solution RxNorm: 505551 1 Milliliter(s) Inj monthly 08/21/201708/15 Active please provide her with syringe/needle for injection cyanocobalamin (vit B-12) 1,000 mcg/mL injection solution RxNorm: 902904 1 Milliliter(s) Inj monthly 08/21/201708/20 Inactive please provide her with syringe/needle for injection Kenalog 40 mg/mL suspension for injection RxNorm: 7691906 2 Milliliter(s) Inj 1mL in each shoulder 08/21/2017 08/21/2017 Inactive cyanocobalamin (vit B-12) 1,000 mcg/mL injection solution RxNorm: 195595 1 Milliliter(s) Inj monthly 08/21/201708/20 Inactive please provide her with syringe/needle for injection Kenalog 40 mg/mL suspension for injection RxNorm: 7951953 2 Milliliter(s) Inj UD 08/12/2017 08/12/2017 Inactive fentanyl 25 mcg/hr transdermal patch RxNorm: 625679 1 Patch TD Q72H use with 100mcg patch for a total of 125mcg daily 08/05/2017 08/30/2017 Inactive fentanyl 100 mcg/hr transdermal patch RxNorm: 869824 1 Patch TD Q72H use with 25mcg/hr patch 08/05/2017 08/30/2017 Inactive Kenalog 40 mg/mL suspension for injection RxNorm: 1040898 2 Milliliter(s) Inj 1mL per shoulder 08/05/2017 08/05/2017 Inactive clindamycin HCl 150 mg capsule RxNorm: 513535 1 Capsule(s) PO QID Dr Shultz prescribed 07/23/2017 07/29/2017 Inactive prednisone 5 mg tablet RxNorm: 419540 1 Tablet(s) PO daily 11/201707/03/2018 Active fentanyl 25 mcg/hr transdermal patch RxNorm: 220380 1 Patch TD Q72H use with 100mcg patch for a total of 125mcg daily 07/01/2017 07/30/2017 Inactive Lasix 20 mg tablet RxNorm: 635544 1 Tablet(s) PO BID 201710/28/2017 Inactive fentanyl 100 mcg/hr transdermal patch RxNorm: 980981 1 Patch TD Q72H use with 25mcg/hr patch 07/01/2017 07/30/2017 Inactive potassium chloride ER 10 mEq capsule,extended release RxNorm: 740081 1 Capsule(s) PO BID when taking lasix 07/01/20172017 Inactive oxycodone 30 mg tablet RxNorm: 5331047 1/2 Tablet(s) PO Q6 08/22/2017 Inactive fentanyl 100 mcg/hr transdermal patch RxNorm: 420550 1 Patch TD Q72H use with 25mcg/hr patch 05/07/2017 06/05/2017 Inactive fentanyl 25 mcg/hr transdermal patch RxNorm: 000673 1 Patch TD Q72H use with 100mcg patch for a total of 125mcg daily 05/07/2017 06/05/2017 Inactive fentanyl 100 mcg/hr transdermal patch RxNorm: 847162 1 Patch TD Q72H 04/08/2017 05/06/2017 Inactive fentanyl 25 mcg/hr transdermal patch RxNorm: 877823 1 Patch TD Q72H use with 100mcg patch for a total of 125mcg daily 04/08/2017 05/06/2017 Inactive Kenalog 40 mg/mL suspension for injection RxNorm: 4257546 1.5 Milliliter(s) Inj 04/02/2017 04/02/2017 Inactive fentanyl 100 mcg/hr transdermal patch RxNorm: 330677 1 Patch TD Q72H 03/12/2017 04/07/2017 Inactive fentanyl 25 mcg/hr transdermal patch RxNorm: 799494 1 Patch TD Q72H use with 100mcg patch for a total of 125mcg daily 03/12/2017 04/07/2017 Inactive oxycodone 30 mg tablet RxNorm: 8430701 1/2 Tablet(s) PO Q6 09/201704/07/2017 Inactive cyanocobalamin (vit B-12) 1,000 mcg/mL injection syringe RxNorm: 104127 1 Milliliter(s) Inj monthly 02/16/2017 No Stop Date Active please provide with supplys needed for injection fentanyl 100 mcg/hr transdermal patch RxNorm: 014270 1 Patch TD Q72H 02/06/2017 03/07/2017 Inactive Myrbetriq 50 mg tablet,extended release RxNorm: 7096337 1 Tablet(s) PO QPM 12/11/2016 07/22/2017 Inactive oxycodone 30 mg tablet RxNorm: 0108639 1/2 Tablet(s) PO Q6 10/201601/06/2017 Inactive naproxen 500 mg tablet RxNorm: 274803 1 Tablet(s) PO BID Take 1 tablet by mouth two times daily as needed 12/08/2016 05/09 /2018 Inactive - First Attempt Ref: [id number] Myrbetriq 50 mg tablet,extended release RxNorm: 3192706 1 Tablet(s) PO QPM 11/17/2016 12/10/2016 Inactive fentanyl 100 mcg/hr transdermal patch RxNorm: 912913 1 Patch TD Q72H 11/12/2016 12/11/2016 Inactive Vesicare 10 mg tablet RxNorm: 859603 1 Tablet(s) PO QPM 201611/18/2016 Inactive oxycodone 10 mg tablet RxNorm: 2289795 1-2 Tablet(s) PO Q4 PRN as needed to take between 30mg dose if needed for extra pain control 201612/07/2016 Inactive fentanyl 75 mcg/hr transdermal patch RxNorm: 957983 1 TD Q72H 10/22/2016 11/10/2016 Inactive oxycodone 10 mg tablet RxNorm: 3370966 1-2 Tablet(s) PO Q4 PRN as needed to take between 30mg dose if needed for extra pain control 201611/04/2016 Inactive Kenalog 40 mg/mL suspension for injection RxNorm: 7118503 1 Milliliter(s) Inj 10/02/2016 10/02/2016 Inactive Kenalog 40 mg/mL suspension for injection RxNorm: 8730222 1 Milliliter(s) Inj 09/12/2016 09/12/2016 Inactive cyclobenzaprine 5 mg tablet RxNorm: 798674 1 Tablet(s) PO Q8 as needed muscle spasms 09/11/2016 07/22/2017 Inactive prednisone 10 mg tablets in a dose pack RxNorm: 709850 1 Tablet(s) PO UD 09/09/2016 06/23/2017 Inactive potassium chloride ER 10 mEq capsule,extended release RxNorm: 712506 1 Capsule(s) PO BID as needed when taking lasix 08/26/2016 06/30/2017 Inactive Lasix 20 mg tablet RxNorm: 427081 1 Tablet(s) PO BID daily x 10 days then as needed edema 08/26/2016 12/23/2016 Inactive naproxen 500 mg tablet RxNorm: 075814 Take 1 tablet by mouth two times daily as needed 08/18/2016 11/15/2016 Inactive - First Attempt Ref: [id number] Lasix 20 mg tablet RxNorm: 072555 1 Tablet(s) PO QAM daily x 10 days then as needed edema 08/18/2016 08/25/2016 Inactive Vesicare 5 mg tablet RxNorm: 811572 1 Tablet(s) PO QPM 201611/04/2016 Inactive potassium chloride ER 10 mEq capsule,extended release RxNorm: 979407 1 Capsule(s) PO QAM as needed when taking lasix 08/18/2016 08/25/2016 Inactive Myrbetriq 25 mg tablet,extended release RxNorm: 4064861 1 Tablet(s) PO QHS 07/14/2016 07/29/2016 Inactive pantoprazole 40 mg tablet,delayed release RxNorm: 304689 Take 1 tablet by mouth daily 06/30/2016 12/26/2016 Inactive - Ref: [id number] Embeda 20 mg-0.8 mg capsule, extend release, oral only RxNorm: 991957 1 Capsule(s ) PO daily 06/04/2016 06/03/2016 Inactive Embeda 20 mg-0.8 mg capsule, extend release, oral only RxNorm: 596050 1 Capsule(s ) PO daily 06/04/2016 07/01/2016 Inactive oxycodone 10 mg tablet RxNorm: 6175034 1 Tablet(s) PO QID as needed to take between 30mg dose if needed for extra pain control 201606/10/2016 Inactive oxycodone 30 mg tablet RxNorm: 9482504 1 Tablet(s) PO Q6 201611/04/2016 Inactive cyanocobalamin (vit B-12) 1,000 mcg/mL injection solution RxNorm: 813430 1 Milliliter(s) Inj monthly 02/22/201602/15 Inactive she also needs syringes/ needles for this solution QS oxycodone 30 mg tablet RxNorm: 3264477 1 Tablet(s) PO Q6 201503/19/2016 Inactive oxycodone 10 mg tablet RxNorm: 0892414 1 Tablet(s) PO QID as needed to take between 30mg dose if needed for extra pain control 201503/19/2016 Inactive oxycodone 10 mg tablet RxNorm: 0559081 1 Tablet(s) PO QID as needed to take between 30mg dose if needed for extra pain control 201502/18/2016 Inactive oxycodone 30 mg tablet RxNorm: 6116330 1 Tablet(s) PO Q6 201502/18/2016 Inactive pantoprazole 40 mg tablet,delayed release RxNorm: 843541 Take 1 tablet by mouth daily 01/22/2016 06/29/2016 Inactive - First Attempt Ref: [id number] oxycodone 30 mg tablet RxNorm: 7697033 1 Tablet(s) PO Q6 201501/28/2016 Inactive oxycodone 10 mg tablet RxNorm: 6425233 1 Tablet(s) PO QID as needed take between 20mg dose if needed for extra pain control 11/07/2015 12/06/2015 Inactive oxycodone 20 mg tablet RxNorm: 4840173 1 Tablet(s) PO Q6 as needed 11/07/2015 12/31/2015 Inactive doxycycline hyclate 100 mg tablet RxNorm: 224928 1 Tablet(s) PO BID 11/01/2015 11/10/2015 Inactive potassium chloride ER 10 mEq capsule,extended release RxNorm: 030088 1 Capsule(s) PO TIW as needed when taking lasix 09/04/2015 08/17/2016 Inactive Voltaren 1 % topical gel RxNorm: 443953 2 Gram(s) TOP QID 08/2909/03/2015 Inactive pa approved Voltaren 1 % topical gel RxNorm: 482149 2 Gram(s) TOP QID 08/0808/29/2015 Inactive naproxen 500 mg tablet RxNorm: 250434 1 Tablet(s) PO BID 201508/17/2016 Inactive naproxen 500 mg tablet RxNorm: 557522 1 Tablet(s) PO BID 201508/08/2015 Inactive doxycycline hyclate 100 mg tablet RxNorm: 899978 1 Tablet(s) PO BID do not take calcium/vitamin d while on antibiotic 07/18/2015 07/31/2015 Inactive Vitamin D2 50,000 unit capsule RxNorm: 254519 1 Capsule(s) PO QW 07/02/2015 11/18/2015 Inactive Premarin 0.3 mg tablet RxNorm: 477236 1 Tablet(s) PO daily 12/201505/09/2015 Inactive Premarin 0.3 mg tablet RxNorm: 576748 1 Tablet(s) PO daily 12/201503/17/2016 Inactive simvastatin 40 mg tablet RxNorm: 487395 1 Tablet(s) PO daily 03/17/2016 Inactive spironolactone 25 mg tablet RxNorm: 794854 TAKE ONE TABLET BY MOUTH DAILY 05/07/2015 05/27/2016 Inactive potassium chloride ER 10 mEq capsule,extended release RxNorm: 336445 1 Capsule(s) PO TIW as needed when taking lasix 04/17/2015 09/03/2015 Inactive alendronate 70 mg tablet RxNorm: 517674 1 Tablet(s) PO weekly QW 04/17/2015 07/01/2015 Inactive Vitamin D2 50,000 unit capsule RxNorm: 876120 1 Capsule(s) PO QW 03/30/2015 06/27/2015 Inactive Vitamin D2 50,000 unit capsule RxNorm: 605447 1 Capsule(s) PO QW 03/21/2015 03/29/2015 Inactive cyanocobalamin (vit B-12) 1,000 mcg/mL injection solution RxNorm: 775615 1 Milliliter(s) Inj monthly 03/19/201502/20 Inactive cyanocobalamin (vit B-12) 1,000 mcg/mL injection solution RxNorm: 869463 1 Milliliter(s) Inj monthly 03/16/201503/18 Inactive cyanocobalamin (vit B-12) 1,000 mcg/mL injection solution RxNorm: 030233 1 Milliliter(s) Inj monthly 03/16/201503/15 Inactive pantoprazole 40 mg tablet,delayed release RxNorm: 513600 1 Tablet(s) PO daily 03/05/2015 01/21/2016 Inactive Lasix 20 mg tablet RxNorm: 719262 1 Tablet(s) PO TIW as needed edema 02/08/2015 02/02/2016 Inactive oxycodone 10 mg tablet RxNorm: 3288461 1 Tablet(s) PO QID as needed take between 20mg dose if needed for extra pain control 11/09/2014 12/08/2014 Inactive oxycodone 20 mg tablet RxNorm: 9290237 1 Tablet(s) PO Q6 as needed 10/25/2014 11/06/2015 Inactive doxycycline hyclate 100 mg tablet RxNorm: 390013 1 Tablet(s) PO BID 10/23/2014 11/19/2014 Inactive Cipro 500 mg tablet RxNorm: 514746 1 Tablet(s) PO BID 201410/16/2014 Inactive Cipro 500 mg tablet RxNorm: 946767 1 Tablet(s) PO BID 201410/09/2014 Inactive oxycodone 20 mg tablet RxNorm: 4850755 1 Tablet(s) PO Q6 as needed 09/25/2014 10/24/2014 Inactive Lasix 20 mg tablet RxNorm: 675942 1 Tablet(s) PO TIW as needed edema 09/14/2014 01/11/2015 Inactive potassium chloride ER 10 mEq capsule,extended release RxNorm: 761621 1 Capsule(s) PO TIW as needed when taking lasix 09/14/2014 01/11/2015 Inactive doxycycline hyclate 100 mg tablet RxNorm: 671294 1 Tablet(s) PO BID 09/05/2014 09/14/2014 Inactive doxycycline hyclate 100 mg tablet RxNorm: 866190 1 Tablet(s) PO BID 09/05/2014 09/04/2014 Inactive oxycodone 20 mg tablet RxNorm: 7338827 1 Tablet(s) PO Q6 as needed 08/29/2014 09/24/2014 Inactive spironolactone 25 mg tablet RxNorm: 716729 1 Tablet(s) PO daily 08/11/2014 03/08/2015 Inactive oxycodone 20 mg tablet RxNorm: 8363157 1 Tablet(s) PO Q6 as needed 08/02/2014 08/28/2014 Inactive Vitamin D3 2,000 unit tablet RxNorm: 648392 1 Tablet(s) PO daily 07/14/2014 No Stop Date Active Vitamin D2 50,000 unit capsule RxNorm: 916931 1 Capsule(s) PO QW 07/14/2014 10/11/2014 Inactive Vitamin D2 50,000 unit capsule RxNorm: 659011 1 Capsule(s) PO QW 07/14/2014 07/13/2014 Inactive Prolia 60 mg/mL subcutaneous syringe RxNorm: 916574 Milliliter(s) SQ EVERY 6 MONTHS No Start Date Active Carafate 1 gram tablet RxNorm: 529479 1 Tablet(s) PO BID No Start Date Active Miralax oral RxNorm: 138211 oral No Start Date Active Stool Softener oral RxNorm: 88191 oral No Start Date Active Calcium + Vitamin D oral RxNorm: 4018 oral No Start Date Active naproxen 500 mg tablet RxNorm: 696523 1 Tablet(s) PO BID No Start Date 08/05/2015 Inactive oxycodone 20 mg tablet RxNorm: 9006111 1 Tablet(s) PO Q6 as needed No Start Date 08/01/2014 Inactive aspirin 81 mg tablet RxNorm: 402817 1 Tablet(s) PO daily No Start Date 07/22/2017 Inactive simvastatin 40 mg tablet RxNorm: 762363 1 Tablet(s) PO daily No Start Date 05/09/2015 Inactive cyanocobalamin (vit B-12) 1,000 mcg/mL injection syringe RxNorm: 589654 1 Inj monthly No Start Date 02/15/2017 Inactive Reglan 10 mg tablet RxNorm: 466189 1 Tablet(s) PO as needed No Start Date 07/29/2016 Inactive alendronate 70 mg tablet RxNorm: 267956 1 Tablet(s) PO weekly No Start Date 04/16/2015 Inactive Protonix 40 mg tablet,delayed release RxNorm: 260766 1 Tablet(s) PO daily No Start Date 03/04/2015 Inactive cyclobenzaprine 5 mg tablet RxNorm: 275937 1 Tablet(s) PO Q8 as needed muscle spasms No Start Date 09/10/2016 Inactive Vitamin D3 1,000 unit capsule RxNorm: 865695 1 Capsule(s) PO daily No Start Date 07/13/2014 Inactive Cardizem CD 360 mg capsule,extended release RxNorm: 238993 1 Capsule(s) PO daily No Start Date 01/04/2018 Inactive prednisone 10 mg tablets in a dose pack RxNorm: 846652 1 Tablet(s) PO UD No Start Date 09/08/2016 Inactive Medication Administered Medication Codes Instructions Start Date Status Kenalog 40 mg/mL suspension for injection RxNorm: 9003706 1Milliliter 08/31/2017 No longer Active Kenalog 40 mg/mL suspension for injection RxNorm: 4638174 2Milliliter 08/21/2017 No longer Active Kenalog 40 mg/mL suspension for injection RxNorm: 4870835 2MilliliterUD 08/12/2017 No longer Active Kenalog 40 mg/mL suspension for injection RxNorm: 5609127 2Milliliter 08/05/2017 No longer Active Kenalog 40 mg/mL suspension for injection RxNorm: 7560690 1.5Milliliter 04/02/2017 No longer Active Kenalog 40 mg/mL suspension for injection RxNorm: 4929037 1Milliliter 10/02/2016 No longer Active Kenalog 40 mg/mL suspension for injection RxNorm: 3376634 1Milliliter 09/12/2016 No longer Active Immunizations Vaccine [...] Tibc Ord40 Fe-%Sat 21.7 % 10/22/2017 Prealbumin 897645 PREALBUMIN 33 mg/dL 10/21/2017 Comp Metabolic Oih899 NA 134 mEq/L 10/20/2017 Comp Metabolic Msp575 K 3.7 mEq/L 10/20/2017 Comp Metabolic Fie196 CL 93 mEq/L 10/20/2017 Comp Metabolic Iza665 CO2 29.0 mEq/L 10/20/2017 Comp Metabolic Lhu595 ANION GAP 16 10/20/2017 Comp Metabolic Bpf531 GLUCOSE 115 mg/dL 10/20/2017 Comp Metabolic Dgf239 Creat 0.8 mg/dL 10/20/2017 Comp Metabolic Akw941 eGFR 73 ml/min/1.73m2 10/20/2017 Comp Metabolic Axh517 BUN 46 mg/dL 10/20/2017 Comp Metabolic Glw720 B/C Ratio 57.5 Ratio 10/20/2017 Comp Metabolic Gkt094 CALCIUM 8.7 mg/dL 10/20/2017 Comp Metabolic Wbs176 ALK PHOS 56 U/L 10/20/2017 Comp Metabolic Ztb018 AST(SGOT) 19 U/L 10/20/2017 Comp Metabolic Omm477 ALT(SGPT) 23 U/L 10/20/2017 Comp Metabolic Sft986 BILI T 0.6 mg/dL 10/20/2017 Comp Metabolic Vic281 ALBUMIN 4.0 g/dL 10/20/2017 Comp Metabolic Bsn010 TPRO 6.6 g/dL 10/20/2017 Comp Metabolic Mri488 GLOB 2.7 g/dL 10/20/2017 Comp Metabolic Xrv475 A/G Ratio 1.5 Ratio 10/20/2017 Comp Metabolic Qhk334 Osmo 281 mOsmo 10/20/2017 Tsh Ord6 TSH (3rd IS) 2.69 uIU/mL 10/20/2017 Cbc With Differential Ord2 WBC 6.24 K/ul 10/20/2017 Cbc With Differential Ord2 RBC 3.47 M/ul 10/20/2017 Cbc With Differential Ord2 HGB 12.3 g/dl 10/20/2017 Cbc With Differential Ord2 HCT 37.5 % 10/20/2017 Cbc With Differential Ord2 Neut% 71.5 % 10/20/2017 Cbc With Differential Ord2 Lymph% 18.4 % 10/20/2017 Cbc With Differential Ord2 MCV 108.1 fl 10/20/2017 Cbc With Differential Ord2 MCH 35.4 pg 10/20/2017 Cbc With Differential Ord2 [place]% 9.9 % 10/20/2017 Cbc With Differential Ord2 Eos% 0.0 % 10/20/2017 Cbc With Differential Ord2 MCHC 32.8 pg 10/20/2017 Cbc With Differential Ord2 PLT 262 K/ul 10/20/2017 Cbc With Differential Ord2 Baso% 0.2 % 10/20/2017 Cbc With Differential Ord2 RDW 13.4 % 10/20/2017 Cbc With Differential Ord2 Neut ABS# 4.46 K/ul 10/20/2017 Cbc With Differential Ord2 Lymph ABS# 1.15 K/ul 10/20/2017 Cbc With Differential Ord2 [place] ABS# 0.6 K/ul 10/20/2017 Cbc With Differential Ord2 Eos ABS# 0.0 K/ul 10/20/2017 Cbc With Differential Ord2 Baso ABS# 0.0 K/ul 10/20/2017 Iron Ord72 Iron 75 ug/dl 10/20/2017 Luann Reflex Profile [id number] LUANN (BRYANNA) SCREEN NONE DETECTED 01/12/2017 Comp Metabolic Ygr369 NA 129 mEq/L 01/08/2017 Comp Metabolic Fmx485 K 3.9 mEq/L 01/08/2017 Comp Metabolic Hkl761 CL 94 mEq/L 01/08/2017 Comp Metabolic Iyi518 CO2 31.0 mEq/L 01/08/2017 Comp Metabolic Fvl808 ANION GAP 8 01/08/2017 Comp Metabolic Jgm658 GLUCOSE 103 mg/dL 01/08/2017 Comp Metabolic Ubn261 Creat 0.9 mg/dL 01/08/2017 Comp Metabolic Fwa341 eGFR 61 ml/min/1.73m2 01/08/2017 Comp Metabolic Wna124 BUN 29 mg/dL 01/08/2017 Comp Metabolic Rxn254 B/C Ratio 30.9 Ratio 01/08/2017 Comp Metabolic Igo399 CALCIUM 8.5 mg/dL 01/08/2017 Comp Metabolic Cfc148 ALK PHOS 58 U/L 01/08/2017 Comp Metabolic Siz573 AST(SGOT) 17 U/L 01/08/2017 Comp Metabolic Rfr130 ALT(SGPT) 10 U/L 01/08/2017 Comp Metabolic Qex701 BILI T 0.4 mg/dL 01/08/2017 Comp Metabolic Uuq054 ALBUMIN 3.0 g/dL 01/08/2017 Comp Metabolic Rop805 TPRO 5.5 g/dL 01/08/2017 Comp Metabolic Uif800 GLOB 2.5 g/dL 01/08/2017 Comp Metabolic Ese749 A/G Ratio 1.2 Ratio 01/08/2017 Comp Metabolic Kan141 Osmo 265 mOsmo 01/08/2017 Cbc With Differential [...] 102.2 fl 01/08/2017 Cbc With Differential Ord2 [place]% 12.2 % 01/08/2017 Cbc With Differential Ord2 MCH 33.8 pg 01/08/2017 Cbc With Differential Ord2 MCHC 33.0 pg 01/08/2017 Cbc With Differential Ord2 Eos% 0.9 % 01/08/2017 Cbc With Differential Ord2 Baso% 0.7 % 01/08/2017 Cbc With Differential Ord2 PLT 211 K/ul 01/08/2017 Cbc With Differential Ord2 RDW 13.6 % 01/08/2017 Cbc With Differential Ord2 Neut ABS# 4.37 K/ul 01/08/2017 Cbc With Differential Ord2 Lymph ABS# 1.62 K/ul 01/08/2017 Cbc With Differential Ord2 [place] ABS# 0.9 K/ul 01/08/2017 Cbc With Differential Ord2 Eos ABS# 0.1 K/ul 01/08/2017 Cbc With Differential Ord2 Baso ABS# 0.1 K/ul 01/08/2017 Magnesium Ord90 Mag 2.0 mg/dL 01/08/2017 Cbc With Differential Ord2 WBC 5.95 K/ul 11/10/2016 Cbc With Differential Ord2 RBC 3.44 M/ul 11/10/2016 Cbc With Differential Ord2 HGB 11.4 g/dl 11/10/2016 Cbc With Differential Ord2 HCT 34.5 % 11/10/2016 Cbc With Differential Ord2 Neut% 76.9 % 11/10/2016 Cbc With Differential Ord2 MCV 100.3 fl 11/10/2016 Cbc With Differential Ord2 Lymph% 13.1 % 11/10/2016 Cbc With Differential Ord2 MCH 33.1 pg 11/10/2016 Cbc With Differential Ord2 [place]% 9.1 % 11/10/2016 Cbc With Differential Ord2 MCHC 33.0 pg 11/10/2016 Cbc With Differential Ord2 Eos% 0.2 % 11/10/2016 Cbc With Differential Ord2 Baso% 0.7 % 11/10/2016 Cbc With Differential Ord2 PLT 280 K/ul 11/10/2016 Cbc With Differential Ord2 RDW 18.4 % 11/10/2016 Cbc With Differential Ord2 Neut ABS# 4.58 K/ul 11/10/2016 Cbc With Differential Ord2 Lymph ABS# 0.78 K/ul 11/10/2016 Cbc With Differential Ord2 [place] ABS# 0.5 K/ul 11/10/2016 Cbc With Differential [...] 31.2 % 10/07/2016 Cbc With Differential Ord2 Lymph% 19.2 % 10/07/2016 Cbc With Differential Ord2 MCV 95.4 fl 10/07/2016 Cbc With Differential Ord2 MCH 30.3 pg 10/07/2016 Cbc With Differential Ord2 [place]% 11.8 % 10/07/2016 Cbc With Differential Ord2 Eos% 1.1 % 10/07/2016 Cbc With Differential Ord2 MCHC 31.7 pg 10/07/2016 Cbc With Differential Ord2 Baso% 0.2 % 10/07/2016 Cbc With Differential Ord2 PLT 570 K/ul 10/07/2016 Cbc With Differential Ord2 RDW 18.2 % 10/07/2016 Cbc With Differential Ord2 Neut ABS# 5.43 K/ul 10/07/2016 Cbc With Differential Ord2 Lymph ABS# 1.54 K/ul 10/07/2016 Cbc With Differential Ord2 [place] ABS# 1.0 K/ul 10/07/2016 Cbc With Differential Ord2 Eos ABS# 0.1 K/ul 10/07/2016 Cbc With Differential Ord2 Baso ABS# 0.0 K/ul 10/07/2016 Tibc Ord40 Iron 13 ug/dl 08/26/2016 Tibc Ord40 UIBC 283 ug/dL 08/26/2016 Tibc Ord40 TIBC 296 ug/dL 08/26/2016 Tibc Ord40 Fe-%Sat 4.4 % 08/26/2016 Ferritin Ord22 FERRITIN 28.8 ng/mL 08/26/2016 Comp Metabolic Xxm444 NA 129 mEq/L 08/26/2016 Comp Metabolic Axv501 K 3.9 mEq/L 08/26/2016 Comp Metabolic Dhm498 CL 93 mEq/L 08/26/2016 Comp Metabolic Vnh397 CO2 30.0 mEq/L 08/26/2016 Comp Metabolic Oil790 ANION GAP 10 08/26/2016 Comp Metabolic Cpq201 GLUCOSE 87 mg/dL 08/26/2016 Comp Metabolic Qkg537 Creat 0.6 mg/dL 08/26/2016 Comp Metabolic Fxl864 eGFR 96 ml/min/1.73m2 08/26/2016 Comp Metabolic Nsz955 BUN 17 mg/dL 08/26/2016 Comp Metabolic Fdp412 B/C Ratio 27.0 Ratio 08/26/2016 Comp Metabolic Wyi209 CALCIUM 7.6 mg/dL 08/26/2016 Comp Metabolic Dns651 ALK PHOS 72 U/L 08/26/2016 Comp Metabolic Pgl815 AST(SGOT) 20 U/L 08/26/2016 Comp Metabolic Ehx486 ALT(SGPT) 12 U/L 08/26/2016 Comp Metabolic Ghj545 BILI T 0.3 mg/dL 08/26/2016 Comp Metabolic Fox870 ALBUMIN 2.7 g/dL 08/26/2016 Comp Metabolic Fcg328 TPRO 5.3 g/dL 08/26/2016 Comp Metabolic Rmp693 GLOB 2.6 g/dL 08/26/2016 Comp Metabolic Pya141 A/G Ratio 1.1 Ratio 08/26/2016 Comp Metabolic Bzr144 Osmo 260 mOsmo 08/26/2016 Cbc With Differential [...] 88.7 fl 08/26/2016 Cbc With Differential Ord2 [place]% 9.6 % 08/26/2016 Cbc With Differential Ord2 [...] 1.83 K/ul 08/26/2016 Cbc With Differential Ord2 [place] ABS# 1.0 K/ul 08/26/2016 Cbc With Differential Ord2 Eos ABS# 0.1 K/ul 08/26/2016 Cbc With Differential Ord2 Baso ABS# 0.0 K/ul 08/26/2016 Magnesium Ord90 Mag 1.9 mg/dL 08/26/2016 Vitamin D 25 Oh [id number] VITAMIN D, 25 HYDROXY 34.59 ng/mL Sed Rate Ord21 ESR 20 mm/hr 11/19/2015 Comp Metabolic Mya640 NA 131 mEq/L 08/22/2015 Comp Metabolic Vkc008 K 4.2 mEq/L 08/22/2015 Comp Metabolic Sue523 CL 98 mEq/L 08/22/2015 Comp Metabolic Hjk268 CO2 27.0 mEq/L 08/22/2015 Comp Metabolic Soq060 ANION GAP 10 08/22/2015 Comp Metabolic Tse135 GLUCOSE 80 mg/dL 08/22/2015 Comp Metabolic Qdo468 Creat 0.5 mg/dL 08/22/2015 Comp Metabolic Fcs719 eGFR 120 ml/min/1.73m2 08/22/2015 Comp Metabolic Oub825 BUN 13 mg/dL 08/22/2015 Comp Metabolic Csj635 B/C Ratio 25.0 Ratio 08/22/2015 Comp Metabolic Oii989 CALCIUM 8.2 mg/dL 08/22/2015 Comp Metabolic Kig250 ALK PHOS 49 U/L 08/22/2015 Comp Metabolic Iau994 AST(SGOT) 18 U/L 08/22/2015 Comp Metabolic Nmb127 ALT(SGPT) 11 U/L 08/22/2015 Comp Metabolic Gan730 BILI T 0.5 mg/dL 08/22/2015 Comp Metabolic Mlw822 ALBUMIN 3.5 g/dL 08/22/2015 Comp Metabolic Bey712 TPRO 6.2 g/dL 08/22/2015 Comp Metabolic Ofv070 GLOB 2.7 g/dL 08/22/2015 Comp Metabolic Izm160 A/G Ratio 1.3 Ratio 08/22/2015 Comp Metabolic Qvp535 Osmo 262 mOsmo 08/22/2015 Cbc With Differential Ord2 WBC 6.50 K/ul 08/22/2015 Cbc With Differential Ord2 RBC 3.67 M/ul 08/22/2015 Cbc With Differential Ord2 HGB 11.9 g/dl 08/22/2015 Cbc With Differential Ord2 HCT 35.8 % 08/22/2015 Cbc With Differential Ord2 Neut% 66.7 % 08/22/2015 Cbc With Differential Ord2 Lymph% 21.4 % 08/22/2015 Cbc With Differential Ord2 MCV 97.5 fl 08/22/2015 Cbc With Differential Ord2 MCH 32.4 pg 08/22/2015 Cbc With Differential Ord2 [place]% 10.3 % 08/22/2015 Cbc With Differential Ord2 Eos% 1.1 % 08/22/2015 Cbc With Differential Ord2 MCHC 33.2 pg 08/22/2015 Cbc With Differential Ord2 Baso% 0.5 % 08/22/2015 Cbc With Differential Ord2 PLT 255 K/ul 08/22/2015 Cbc With Differential Ord2 Neut ABS# 4.34 K/ul 08/22/2015 Cbc With Differential Ord2 RDW 13.6 % 08/22/2015 Cbc With Differential Ord2 Lymph ABS# 1.39 K/ul 08/22/2015 Cbc With Differential Ord2 [place] ABS# 0.7 K/ul 08/22/2015 Cbc With Differential Ord2 Eos ABS# 0.1 K/ul 08/22/2015 Cbc With Differential Ord2 Baso ABS# 0.0 K/ul 08/22/2015 Tsh Ord6 hTSH II 2.19 uIU/mL 08/22/2015 Vitamin D 25 Oh Qcr0035 VITAMIN D, 25 HYDROXY 55.10 ng/mL Lipid [...] 1.5 Ratio 03/16/2015 Vitamin D 25 Oh Lyk7626 VITAMIN D, 25 HYDROXY 28.94 ng/mL Cbc [...] 32.0 % 03/16/2015 Cbc With Differential Ord2 [place]% 11.2 % 03/16/2015 Cbc With Differential Ord2 MCH 28.1 pg 03/16/2015 Cbc With Differential Ord2 Eos% 1.2 % 03/16/2015 Cbc With Differential Ord2 MCHC 31.9 pg 03/16/2015 Cbc With Differential Ord2 Baso% 0.4 % 03/16/2015 Cbc With Differential Ord2 PLT 346 K/ul 03/16/2015 Cbc With Differential Ord2 Neut ABS# 4.09 K/ul 03/16/2015 Cbc With Differential Ord2 RDW 13.2 % 03/16/2015 Cbc With Differential Ord2 Lymph ABS# 2.37 K/ul 03/16/2015 Cbc With Differential Ord2 [place] ABS# 0.8 K/ul 03/16/2015 Cbc With Differential Ord2 Eos ABS# 0.1 K/ul 03/16/2015 Cbc With Differential Ord2 Baso ABS# 0.0 K/ul 03/16/2015 Cbc With Differential Ord2 New Analyzer Notice Please note new ref ranges starting 03-14-2015 due to implemntation of new five part differential hematolgy analyzer. 03/16/2015 Comp Metabolic Jdm187 NA 131 mEq/L 03/16/2015 Comp Metabolic Zoy510 K 4.1 mEq/L 03/16/2015 Comp Metabolic Rba044 CL 94 mEq/L 03/16/2015 Comp Metabolic Kxv908 CO2 28.0 mEq/L 03/16/2015 Comp Metabolic Nmm289 ANION GAP 13 03/16/2015 Comp Metabolic Qji103 GLUCOSE 96 mg/dL 03/16/2015 Comp Metabolic Ahx743 Creat 0.7 mg/dL 03/16/2015 Comp Metabolic Xgx963 eGFR 80 ml/min/1.73m2 03/16/2015 Comp Metabolic Ndc567 BUN 16 mg/dL 03/16/2015 Comp Metabolic Xcd132 B/C Ratio 21.6 Ratio 03/16/2015 Comp Metabolic Oye951 CALCIUM 8.9 mg/dL 03/16/2015 Comp Metabolic Fps478 ALK PHOS 44 U/L 03/16/2015 Comp Metabolic Ryz535 AST(SGOT) 22 U/L 03/16/2015 Comp Metabolic Zca239 ALT(SGPT) 14 U/L 03/16/2015 Comp Metabolic Jdu752 BILI T 0.5 mg/dL 03/16/2015 Comp Metabolic Mdf795 ALBUMIN 3.4 g/dL 03/16/2015 Comp Metabolic Inv263 TPRO 6.0 g/dL 03/16/2015 Comp Metabolic Aiu597 GLOB 2.6 g/dL 03/16/2015 Comp Metabolic Nns090 A/G Ratio 1.3 Ratio 03/16/2015 Comp Metabolic Iqp417 Osmo 264 mOsmo 03/16/2015 Comp Metabolic Iva088 NA 129 mEq/L 11/09/2014 Comp Metabolic Awr851 K 4.2 mEq/L 11/09/2014 Comp Metabolic Oac001 CL 96 mEq/L 11/09/2014 Comp Metabolic Nar070 CO2 27.0 mEq/L 11/09/2014 Comp Metabolic Omm813 ANION GAP 10 11/09/2014 Comp Metabolic Dao988 GLUCOSE 144 mg/dL 11/09/2014 Comp Metabolic Rfc600 Creat 0.8 mg/dL 11/09/2014 Comp Metabolic Wyt454 eGFR 73 ml/min/1.73m2 11/09/2014 Comp Metabolic Qns571 BUN 22 mg/dL 11/09/2014 Comp Metabolic Txq049 B/C Ratio 27.5 Ratio 11/09/2014 Comp Metabolic Wxt341 CALCIUM 8.6 mg/dL 11/09/2014 Comp Metabolic Spp656 ALK PHOS 55 U/L 11/09/2014 Comp Metabolic Hog232 AST(SGOT) 27 U/L 11/09/2014 Comp Metabolic Gsn847 ALT(SGPT) 18 U/L 11/09/2014 Comp Metabolic Evf158 BILI T 0.5 mg/dL 11/09/2014 Comp Metabolic Wsc213 ALBUMIN 3.0 g/dL 11/09/2014 Comp Metabolic Syh307 TPRO 5.4 g/dL 11/09/2014 Comp Metabolic Rcd258 GLOB 2.4 g/dL 11/09/2014 Comp Metabolic Tim837 A/G Ratio 1.3 Ratio 11/09/2014 Comp Metabolic Paa264 Osmo 265 mOsmo 11/09/2014 Magnesium Ord90 Mag [...] benign 11/05/2016 None Full Exam - General 1995 Lymphatic neck nodes Overall: posterior cervical chain [...] Procedures Procedure Codes Date DRAIN/INJECT JOINT/BURSA CPT-4: 04822 08/21/2017 DRAIN/INJECT JOINT/BURSA CPT-4: 00215 08/12/2017 TRIAMCINOLONE ACET INJ NOS CPT-4: J3301 08/12/2017 DRAIN/INJECT JOINT/BURSA CPT-4: 10947 08/05/2017 TRIAMCINOLONE ACET INJ NOS CPT-4: J3301 08/05/2017 DRAIN/INJECT JOINT/BURSA CPT-4: 41161 07/23/2017 DRAIN/INJECT JOINT/BURSA CPT-4: 26966 07/09/2017 TRIAMCINOLONE ACET INJ NOS CPT-4: J3301 07/09/2017 PRESCRIP TRANSMIT VIA ERX SY CPT-4: G8553 07/09/2017 DRAIN/INJECT JOINT/BURSA CPT-4: 81076 07/01/2017 TRIAMCINOLONE ACET INJ NOS CPT-4: J3301 07/01/2017 PRESCRIP TRANSMIT VIA ERX SY CPT-4: G8553 07/01/2017 DRAIN/INJECT JOINT/BURSA CPT-4: 10186 06/17/2017 DRAIN/INJECT JOINT/BURSA CPT-4: 68398 04/02/2017 TRIAMCINOLONE ACET INJ NOS CPT-4: J3301 04/02/2017 DRAIN/INJECT JOINT/BURSA CPT-4: 02888 02/06/2017 ADMIN INFLUENZA VIRUS VAC CPT-4: G0008 12/08/2016 FLU VACC PRSV FREE INC ANTIG CPT-4: 92005 12/08/2016 PRESCRIP TRANSMIT VIA ERX SY CPT-4: G8553 12/08/2016 PRESCRIP TRANSMIT VIA ERX SY CPT-4: G8553 11/17/2016 TRIAMCINOLONE ACET INJ NOS CPT-4: J3301 10/02/2016 TRIAMCINOLONE ACET INJ NOS CPT-4: J3301 09/12/2016 DRAIN/INJECT JOINT/BURSA CPT-4: 28088 09/08/2016 TRIAMCINOLONE ACET INJ NOS CPT-4: J3301 09/08/2016 PRESCRIP TRANSMIT VIA ERX SY CPT-4: G8553 08/26/2016 PRESCRIP TRANSMIT VIA ERX SY CPT-4: G8553 08/18/2016 ADMIN INFLUENZA VIRUS VAC CPT-4: G0008 11/19/2015 FLU VACC PRSV FREE INC ANTIG Formatting Model/CDA Sections, Assigned to/Luanne Elaine CPT-4: 45091Cbcirrk 11/19/2015 PRESCRIP TRANSMIT VIA ERX SY CPT-4: G8553 09/04/2015 PRESCRIP TRANSMIT VIA ERX SY CPT-4: G8553 2015 PRESCRIP TRANSMIT VIA ERX SY CPT-4: G8553 07/18/2015 PRESCRIP TRANSMIT VIA ERX SY CPT-4: G8553 07/02/2015 REMOVE IMPACTED EAR WAX UNI CPT-4: 63294 04/09/2015 PRESCRIP TRANSMIT VIA ERX SY CPT-4: G8553 02/08/2015 ADMIN INFLUENZA VIRUS VAC CPT-4: G0008 01/10/2015 FLU VACC PRSV FREE INC ANTIG Formatting Model/CDA Sections, Assigned to/Luanne Elaine CPT-4: 03215Sdmmukq 01/10/2015 ADMIN PNEUMOCOCCAL VACCINE Formatting Model/CDA Sections, Assigned to SNOMED CT: 01296904 CPT-4: A5375Yplnboe 12/11/2014 PNEUMOCOCCAL VACC [address]: 22009537 CPT-4: 86998 12/11/2014 Vital Signs Date Vital 12/24/2017 Blood Pressure 1: 115/58 Code : 8480-6 BMI: 23.5 Code : 73295-5 Heart Rate 1 : 58 bpm Height: 5'8" SpO2: 96% Weight: 152 lbs 11/30/2017 Blood Pressure 1: 122/70 Code : 8480-6 Heart Rate 1: 105 bpm Height: 5'8" SpO2: 98% Weight: 11/27/2017 Blood Pressure 1: 148/76 Code : 8480-6 Heart Rate 1: 72 bpm Height: 5'8" SpO2: 99% Weight: 11/10/2017 Blood Pressure 1: 130/76 Code : 8480-6 BMI: 27.3 Code : 28988-4 Heart Rate 1 : 98 bpm Height: [...] Code : 8480-6 BMI: 24.7 Code : 98048-3 Heart Rate 1 : 100 bpm Height: 5'8" SpO2: 95% Weight: 160 lbs 08/31/2017 Blood Pressure 1: 128/78 Code : 8480-6 BMI: 23.6 Code : 52348-2 Heart Rate 1 : 102 bpm Height: 5'8" SpO2: 96% Weight: 153 lbs 08/21/2017 Blood Pressure 1: 138/78 Code : 8480-6 Heart Rate 1: 97 bpm SpO2: 95% Weight: 156 lbs 2 oz 08/12/2017 Blood Pressure 1: 138/74 Code : 8480-6 BMI: 25.0 Code : 49308-9 Heart Rate 1 : 94 bpm Height: 5'8" SpO2: 98% Weight: 162 lbs 08/05/2017 Blood Pressure 1: 126/78 Code : 8480-6 BMI: 25.8 Code : 06370-6 Heart Rate 1 : 74 bpm Height: 5'8" SpO2: 96% Weight: 167 lbs 07/23/2017 Blood Pressure 1: 106/64 Code : 8480-6 BMI: 25.3 Code : 26952-5 Heart Rate 1 : 81 bpm Height: 5'8" SpO2: 99% Weight: 163 lbs 14 oz 07/09/2017 Blood Pressure 1: 130/68 Code : 8480-6 Heart Rate 1: 82 bpm Height: 5'8" SpO2: 98% Weight: 07/01/2017 Blood Pressure 1: 124/76 Code : 8480-6 BMI: 26.5 Code : 75797-6 Heart Rate 1 : 99 bpm Height: 5'8" SpO2: 98% Weight: 172 lbs 06/24/2017 Blood Pressure 1: 118/70 Code : 8480-6 Heart Rate 1: 103 bpm Height: 5'8" SpO2: 98% Weight: 06/17/2017 Blood Pressure 1: 110/64 Code : 8480-6 BMI: 25.0 Code : 66562-1 Heart Rate 1 : 73 bpm Height: 5'8" Weight: 162 lbs 06/01/2017 Blood Pressure 1: 158/84 Code : 8480-6 BMI: 24.4 Code : 48828-0 Heart Rate 1 : 94 bpm Height: 5'8" SpO2: 95% Weight: 158 lbs 04/02/2017 Blood Pressure 1: 164/80 Code : 8480-6 BMI: 23.1 Code : 08992-5 Heart Rate 1 : 76 bpm Height: 5'8" SpO2: 94% Weight: 150 lbs 03/12/2017 Blood Pressure 1: 130/74 Code : 8480-6 BMI: 23.0 Code : 25690-6 Heart Rate 1 : 92 bpm Height: 5'8" SpO2: 94% Weight: 149 lbs 02/06/2017 Height: Weight: 01/08/2017 Blood Pressure 1: 136/76 Code : 8480-6 BMI: 21.4 Code : 24177-1 Heart Rate 1 : 85 bpm Height: 5'8" SpO2: 98% Weight: 138 lbs 8 oz 12/08/2016 Blood Pressure 1: 132/66 Code : 8480-6 BMI: 22.2 Code : 76980-4 Heart Rate 1 : 106 bpm Height: 5'8" SpO2: 97% Weight: 144 lbs 11/17/2016 Blood Pressure 1: 146/80 Code : 8480-6 BMI: 22.4 Code : 19146-5 Heart Rate 1 : 100 bpm Height: 5'8" SpO2: 98% Weight: 145 lbs 11/10/2016 Blood Pressure 1: 122/62 Code : 8480-6 BMI: 22.2 Code : 11353-5 Height: 5'8" Weight: 144 lbs 11/05/2016 Blood Pressure 1: 146/80 Code : 8480-6 BMI: 22.2 Code : 39658-3 Heart Rate 1 : 77 bpm Height: 5'8" SpO2: 99% Weight: 144 lbs 10/07/2016 Blood Pressure 1: 132/68 Code : 8480-6 BMI: 22.8 Code : 75719-5 Heart Rate 1 : 90 bpm Height: 5'8" SpO2: 97% Weight: 148 lbs 10/02/2016 Blood Pressure 1: 166/86 Code : 8480-6 BMI: 22.8 Code : 34272-6 Heart Rate 1 : 96 bpm Height: 5'8" SpO2: 96% Weight: 148 lbs 09/12/2016 Blood Pressure 1: 130/86 Code : 8480-6 Height: Weight: 09/08/2016 Blood Pressure 1: 132/74 Code : 8480-6 BMI: 22.4 Code : 27036-4 Heart Rate 1 : 93 bpm Height: 5'8" SpO2: 99% Weight: 145 lbs 08/26/2016 Blood Pressure 1: 132/78 Code : 8480-6 BMI: 23.9 Code : 07181-7 Heart Rate 1 : 80 bpm Height: 5'8" SpO2: 94% Weight: 155 lbs 08/18/2016 Blood Pressure 1: 130/70 Code : 8480-6 BMI: 23.6 Code : 56757-0 Heart Rate 1 : 100 bpm Height: 5'8" SpO2: 94% Weight: 153 lbs 07/30/2016 Blood Pressure 1: 144/84 Code : 8480-6 BMI: 22.4 Code : 02544-1 Heart Rate 1 : 86 bpm Height: 5'8" SpO2: 97% Weight: 145 lbs 07/14/2016 Blood Pressure 1: 122/74 Code : 8480-6 BMI: 22.5 Code : 90176-0 Heart Rate 1 : 87 bpm Height: 5'8" SpO2: 97% Weight: 146 lbs 07/04/2016 Blood Pressure 1: 128/78 Code : 8480-6 BMI: 22.5 Code : 82792-9 Heart Rate 1 : 98 bpm Height: 5'8" Weight: 146 lbs 06/26/2016 Blood Pressure 1: 122/68 Code : 8480-6 BMI: 22.5 Code : 02388-7 Heart Rate 1 : 102 bpm Height: 5'8" SpO2: 98% Weight: 146 lbs 05/28/2016 Blood Pressure 1: 122/68 Code : 8480-6 BMI: 22.4 Code : 75655-6 Heart Rate 1 : 89 bpm Height: 5'8" SpO2: 97% Weight: 145 lbs 03/18/2016 Blood Pressure 1: 132/66 Code : 8480-6 BMI: 22.8 Code : 60597-9 Heart Rate 1 : 96 bpm Height: 5'8" SpO2: 98% Weight: 148 lbs 01/29/2016 Blood Pressure 1: 122/66 Code : 8480-6 BMI: 22.2 Code : 25979-0 Heart Rate 1 : 90 bpm Height: 5'8" SpO2: 99% Weight: 144 lbs 01/01/2016 Blood Pressure 1: 148/82 Code : 8480-6 BMI: 22.5 Code : 67844-0 Heart Rate 1 : 82 bpm Height: 5'8" Weight: 146 lbs 11/19/2015 Blood Pressure 1: 140/74 Code : 8480-6 BMI: 23.7 Code : 28592-4 Heart Rate 1 : 79 bpm Height: 5'8" SpO2: 96% Weight: 153 lbs 8 oz 11/01/2015 Blood Pressure 1: 118/72 Code : 8480-6 Heart Rate 1: 90 bpm Height: 5'8" SpO2: 95% 09/04/2015 Blood Pressure 1: 136/72 Code : 8480-6 BMI: 23.1 Code : 63353-0 Heart Rate 1 : 97 bpm Height: 5'8" SpO2: 98% Weight: 149 lbs 8 oz 2015 Blood Pressure 1: 144/76 Code : 8480-6 BMI: 22.8 Code : 27271-3 Heart Rate 1 : 75 bpm Height: 5'8" SpO2: 97% Weight: 148 lbs 07/18/2015 Blood Pressure 1: 132/60 Code : 8480-6 BMI: 23.1 Code : 43624-9 Heart Rate 1 : 78 bpm Height: 5'8" Weight: 150 lbs 07/02/2015 Blood Pressure 1: 156/86 Code : 8480-6 BMI: 23.0 Code : 12084-2 Heart Rate 1 : 75 bpm Height: 5'8" SpO2: 99% Weight: 149 lbs 05/31/2015 Blood Pressure 1: 136/72 Code : 8480-6 BMI: 22.7 Code : 84774-3 Heart Rate 1 : 85 bpm Height: 5'8" SpO2: 97% Weight: 147 lbs 04/09/2015 Blood Pressure 1: 118/60 Code : 8480-6 BMI: 22.7 Code : 97990-8 Heart Rate 1 : 72 bpm Height: 5'8" SpO2: 95% Weight: 147 lbs 02/08/2015 Blood Pressure 1: 138/76 Code : 8480-6 BMI: 23.1 Code : 41218-7 Heart Rate 1 : 80 bpm Height: 5'8" SpO2: 98% Weight: 150 lbs 12/11/2014 Blood Pressure 1: 120/74 Code : 8480-6 BMI: 22.1 Code : 79869-4 Heart Rate 1 : 92 bpm Height: 5'8" SpO2: 96% Weight: 143 lbs 11/09/2014 Blood Pressure 1: 100/64 Code : 8480-6 BMI: 21.6 Code : 14063-4 Heart Rate 1 : 88 bpm Height: 5'8" Weight: 140 lbs 10/23/2014 Blood Pressure 1: 138/82 Code : 8480-6 BMI: 23.6 Code : 18198-5 Heart Rate 1 : 86 bpm Height: 5'8" Weight: 153 lbs 10/16/2014 Blood Pressure 1: 128/60 Code : 8480-6 BMI: 23.3 Code : 10893-6 Heart Rate 1 : 91 bpm Height: 5'8" SpO2: 99% Weight: 151 lbs 10/09/2014 Blood Pressure 1: 120/60 Code : 8480-6 BMI: 23.0 Code : 92455-2 Heart Rate 1 : 96 bpm Height: 5'8" SpO2: 97% Weight: 149 lbs 09/14/2014 Blood Pressure 1: 132/72 Code : 8480-6 BMI: 22.1 Code : 20445-3 Heart Rate 1 : 84 bpm Height: 5'8" SpO2: 97% Weight: 143 lbs 08/11/2014 Blood Pressure 1: 134/74 Code : 8480-6 BMI: 24.1 Code : 22847-2 Heart Rate 1 : 88 bpm Height: 5'8" Weight: 156 lbs 07/12/2014 Blood Pressure 1: 122/62 Code : 8480-6 BMI: 22.7 Code : 53766-2 Heart Rate 1 : 76 bpm Height: [...] Dr. Blancas in [place] and Neurosurgeon in [place] in the past neck pain Significant Medical Conditions spinal stenosis 07/12/2014 has osteoarthritis Advance Directives No Advance Directive data Encounters Encounter Performer Location Codes Date ( EST. PATIENT, LEVEL IV Diagnosis: Essential (primary) hypertension[ICD10: I10] Diagnosis: Generalized edema[ICD10: R60.1] Diagnosis: Chronic pain syndrome[ICD10: G89.4] Araceli Silva MD, [facility] CPT-4: 00838 12/24/2017 ([id number]) 17415 EST. PATIENT, LEVEL III Diagnosis: Lymphedema, not elsewhere classified[ICD10: I89.0] Araceli Silva MD, [facility] CPT-4: 97760 11/30/2017 ([id number]) 40621 EST. PATIENT, LEVEL III Diagnosis: Generalized edema[ICD10: R60.1] Ila Silva MD, [facility] CPT-4: 27111 11/27/2017 ([id number] 07673 EST. PATIENT, LEVEL IV Diagnosis: Localized edema[ICD10: [...] in left shoulder[ICD10: M25.512] Araceli Silva MD, [facility] CPT-4: 65779 11/10/2017 ([id number]) 35683 EST. PATIENT, LEVEL IV Diagnosis: Localized edema[ICD10: [...] in left shoulder[ICD10: M25.512] Araceli Silva MD, [facility] CPT-4: 75416 10/29/2017 ([id number]) 83214 EST. PATIENT, LEVEL IV Diagnosis: Essential (primary) [...] Diagnosis: Localized edema[ICD10: R60.0] Araceli Silva MD, [facility] CPT- 4: 46001 10/20/2017 ([id number]) 62214 EST. 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 PATIENT, LEVEL IV Diagnosis: Primary osteoarthritis, left shoulder[ICD10: M19.012] Diagnosis: Pain in left shoulder[ICD10: M25.512] Diagnosis: Lymphedema, not elsewhere classified[ICD10: I89.0] Diagnosis: Localized edema[ICD10: R60.0] Diagnosis: Chronic atrial fibrillation[ICD10: I48.2] Araceli Silva MD, [facility] CPT-4: 92073 09/15/2017 ([id number]) 63482 EST. PATIENT, LEVEL III Diagnosis: Primary osteoarthritis, left shoulder[ICD10: M19.012] Diagnosis: Pain in left shoulder[ICD10: M25.512] Diagnosis: Hemarthrosis, left shoulder[ICD10: M25.012] Araceli Silva MD, [facility] CPT-4: 08511 08/31/2017 ([id number]) 86613 EST. 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 PATIENT, LEVEL III Diagnosis: Localized edema[ICD10: R60.0] Araceli Silva MD, [facility] CPT- 4: 41917 07/23/2017 ([id number]) 38736 EST. PATIENT, LEVEL III Diagnosis: Rheumatoid arthritis without rheumatoid factor, left shoulder[ICD10: M06.012] Diagnosis: Hemarthrosis, left shoulder[ICD10: M25.012] Araceli Silva MD, [facility] CPT-4: 28730 07/09/2017 ([id number]) 74956 EST. PATIENT, LEVEL III Diagnosis: Chronic pain syndrome[ICD10: G89.4] Diagnosis: Rheumatoid arthritis without rheumatoid factor, left shoulder[ICD10: M06.012] Diagnosis: Hemarthrosis, left shoulder[ICD10: M25.012] Diagnosis: Lymphedema, not elsewhere classified[ICD10: I89.0] Araceli Silva MD, [facility] CPT-4: 97246 07/01/2017 ([id number]) 92431 EST. PATIENT, LEVEL III Diagnosis: Chronic pain syndrome[ICD10: G89.4] Araceli Silva MD, [facility] CPT-4: 50088 06/24/2017 ([id number]) 00915 EST. 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 PATIENT, LEVEL III Diagnosis: Pain in left shoulder[ICD10: M25.512] Diagnosis: Hemarthrosis, right shoulder[ICD10: M25.011] Diagnosis: Hemarthrosis, left shoulder[ICD10: M25.012] Maricel Silva MD, [facility] CPT-4: 09938 06/01/2017 ([id number]) 79679 EST. PATIENT, LEVEL II Diagnosis: Pain in right shoulder[ICD10: M25.511] Diagnosis: Hemarthrosis, right shoulder[ICD10: M25.011] Araceli Silva MD, [facility] CPT-4: 67389 04/02/2017 ([id number]) 27274 EST. 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 PATIENT, LEVEL IV Diagnosis: Encounter for immunization[ICD10: Z23] Diagnosis: Chronic pain syndrome[ICD10: G89.4] Diagnosis: Essential (primary) hypertension[ICD10: I10] Araceli Silva MD, [facility] CPT-4: 91146 12/08/2016 ([id number]) 79177 EST. PATIENT, LEVEL III Diagnosis: Urge incontinence[ICD10: N39.41] Diagnosis: Chronic pain syndrome[ICD10: G89.4] Diagnosis: Lymphedema, not elsewhere classified[ICD10: I89.0] Araceli Silva MD, [facility] CPT-4: 84827 11/17/2016 [id number] EST. 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 PATIENT, LEVEL IV Diagnosis: Essential (primary) hypertension[ICD10: I10] Diagnosis: Other chronic pain[ICD10: G89.29] Diagnosis: Localized edema[ICD10: R60.0] Diagnosis: Urge incontinence[ICD10: N39.41] Araceli Silva MD, [facility] CPT-4: 85969 11/05/2016 ([id number]) 51160 EST. 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 PATIENT, LEVEL III Diagnosis: Hemarthrosis, right shoulder[ICD10: M25.011] Diagnosis: Pain in right shoulder[ICD10: M25.511] Ila Silva MD, [facility] CPT-4: 48036 10/02/2016 [id number] EST. PATIENT, LEVEL II Diagnosis: Low back pain[ICD10: M54.5] Diagnosis: Sacroiliitis, not elsewhere classified[ICD10: M46.1] Ila Silva MD, [facility] CPT-4: 24459 09/12/2016 ([id number]) 80896 EST. PATIENT, LEVEL III Diagnosis: Hemarthrosis, right shoulder[ICD10: M25.011] Diagnosis: Other chronic pain[ICD10: G89.29] Araceli Silva MD, [facility] CPT-4: 04360 09/08/2016 ([id number]) 93937 EST. PATIENT, LEVEL IV Diagnosis: Other iron deficiency anemias[ICD10: D50.8] Diagnosis: Vitamin D deficiency, unspecified[ICD10: E55.9] Diagnosis: Hypomagnesemia[ICD10: E83.42] Araceli Silva MD, [facility] CPT- 4: 55415 08/26/2016 ([id number]) 95101 EST. PATIENT, LEVEL III Diagnosis: Localized edema[ICD10: R60.0] Araceli Silva MD, [facility] CPT- 4: 35220 08/18/2016 ([id number]) 74772 EST. 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 PATIENT, LEVEL IV Diagnosis: Pain in left shoulder[ICD10: M25.512] Diagnosis: Nocturia[ICD10: R35.1] Maricel Silva MD, [facility] CPT-4: 67180 07/14/2016 [id number] EST. PATIENT, LEVEL III Diagnosis: Pain in left shoulder[ICD10: M25.512] Maricel Silva MD, [facility] CPT-4: 71469 07/04/2016 ([id number]) [id number] EST. 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 PATIENT, LEVEL II Diagnosis: Insect bite (nonvenomous) of right upper arm, initial encounter[ICD10 : S40.861A] Ila Silva MD, [facility] CPT-4: 24166 11/01/2015 ([id number]) 24833 EST. 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 PATIENT, LEVEL III Diagnosis: Contusion of left upper arm, subsequent encounter[ICD10: S40.022D] Araceli Silva MD, [facility] CPT-4: 88717 2015 82822 EST. PATIENT, LEVEL III Diagnosis: Cellulitis of left upper limb[ICD10: L03.114] Maricel Silva MD, [facility] CPT-4: 27462 07/18/2015 ([id number]) 82070 EST. 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 PATIENT, LEVEL IV Diagnosis: Essential (primary) hypertension[ICD10: I10] Diagnosis: Vitamin D deficiency, unspecified[ICD10: E55.9] Diagnosis: Mixed hyperlipidemia[ICD10: E78.2] Diagnosis: Age-related osteoporosis with current pathological fracture, unspecified site, sequela[ICD10: M80.00XS] Araceli Silva MD, [facility] CPT- 4: 84990 02/08/2015 ([id number]) 06368 EST. PATIENT, LEVEL IV Diagnosis: Essential (primary) hypertension[ICD10: I10] Diagnosis: Localized edema[ICD10: R60.0] Diagnosis: Primary osteoarthritis, unspecified site[ICD10: M19.91] Araceli Silva MD, [facility] CPT-4: 07818 12/11/2014 ([id number]) 92851 EST. PATIENT, LEVEL III Diagnosis: EDEMA[ICD9: 782.3] Diagnosis: ESSENTIAL HYPERTENSION[ICD9: 401.9] Araceli Silva MD, [facility] CPT-4: 50268 11/09/2014 ([id number]) 80124 EST. PATIENT, LEVEL III Diagnosis: Leg pain[ICD9: 729.5] Diagnosis: Ulcer of toe[ICD9: 707.15] Araceli Silva MD, [facility] CPT- 4: 06774 10/23/2014 ([id number]) 42598 EST. PATIENT, LEVEL III Diagnosis: Ulcer of toe[ICD9: 707.15] Araceli Silva MD, [facility] CPT- 4: 59893 10/16/2014 93841 EST. PATIENT, LEVEL II Diagnosis: Ulcer of toe[ICD9: 707.15] Ila Kennedy Araceli Silva MD, [facility] CPT-4: 59919 10/09/2014 ([id number]) 95215 EST. PATIENT, LEVEL III Diagnosis: EDEMA[ICD9: 782.3] Araceli Silva MD, [facility] CPT-4: 76915 09/14/2014 ([id number]) 02055 EST. PATIENT, LEVEL IV Diagnosis: EDEMA[ICD9: 782.3] Diagnosis: ESSENTIAL HYPERTENSION[ICD9: 401.9] Araceli Silva MD, [facility] CPT-4: 76792 08/11/2014 ([id number]) OFFICE VISIT, NEW - LEVEL 4 Diagnosis: HYPERLIPIDEMIA[ICD9: 272.4] Diagnosis: VITAMIN D DEFICIENCY[ICD9: 268.9] Diagnosis: Osteoporosis[ICD9: 733.00] Diagnosis: Esophageal reflux[ICD9: 530.81] Diagnosis: Chronic pain[ICD9: 338.29] Araceli Silva MD, [facility] CPT- 4: 08285 07/12/2014 Plan of Care Planned Activity Notes [...] oxycodone scheduled. 12/24/2017 Appointment: Araceli Silva WPtel: [address] [place], [place] [address] (30 min) [facility] 12/24/2017 Patient Education: Patient Medication Summary Completed [...] and output. 11/30/2017 Appointment: [phone] [facility] (15 min) Moderate 11/30/2017 Patient Education: Patient [...] over-medication. 11/10/2017 Appointment: [facility] Silva [facility]el[phone] [facility] (15 min) Moderate 11/10/2017 Patient Education: Patient [...] severe RA of hands/fingers. We will contact [email or web address] in [place] for paperwork regarding the scooter. 10/29/2017 Appointment: [facility] Silva [facility]Ptel[facility] [phone] [facility] (15 min) Moderate 10/29/2017 Patient Education: Patient [...] time. 10/20/2017 Appointment: [facility] Silva [facility]Ptel[facility] [phone] [facility] (30 min) Complex 10/20/2017 Patient Education: Patient [...] today. 09/29/2017 Appointment: [facility] Silva [facility]Ptel[facility] [phone] [facility] (15 min) Moderate 09/29/2017 Patient Education: Patient [...] Completed 08/21/2017 Appointment: Araceli Silva WPtel: [phone] [phone] (15 min) Moderate 08/20/2017 Visit Plan: Hemarthrosis shoulders - 250mL from left shoulder and 100mL from right shoulder with 1ml kenalog injected into right and left shoulders - Left and right shoulder pain and swelling, swelling into arms and left breast -pt to continue with use of compression sleeves. [id number] sep 2018 bristol 2ml kenalog 08/12/2017 Appointment: [facility] Silva [facility]Ptel[facility] [phone] [facility] (15 min) Moderate 08/12/2017 Patient Education: Patient [...] peripheral edema. 08/05/2017 Appointment: Araceli Silva WPtel: [phone] [facility] [place] (15 min) Moderate 08/05/2017 Patient Education: [...] edema. 07/23/2017 Appointment: [facility] Silva WPtel[facility] [phone] [facility] [place] (15 min) Moderate 07/23/2017 Patient Education: [...] symptoms. 07/09/2017 Appointment: [facility] Silva WPtel[facility] [phone] [facility] [place] (15 min) Moderate 07/09/2017 Patient Education: [...] symptoms. 07/01/2017 Appointment: [facility] Silva WPtel[facility] [phone] [facility] [place] (15 min) Moderate 07/01/2017 Patient Education: Patient Medication Summary Completed 07/01/2017 Visit Plan: Chronic Pain Syndrome - pt has chronic pain - has been maintained on current medications, has not sought out other medications , only uses PRN pain medications as directed, and understands the consequences of over-medication. 06/24/2017 Appointment: Araceli Silva WPtel[facility] [phone] [facility] [place] (15 min) Moderate 06/24/2017 Patient Education: [...] peripheral edema. 06/17/2017 Appointment: [facility] Silva WPtel[facility] [phone] [facility] [place] (30 min) Complex 06/17/2017 Patient Education: Patient Medication Summary Completed 06/17/2017 Appointment: [facility] Silva WPtel[facility] [phone] [facility] [place] (15 min) Moderate 06/08/2017 Care Plan: Referral Order SNOMED-CT : [id number] Pending 06/02/2017 Visit Plan: Left and right [...] peripheral edema. 06/01/2017 [phone] [place] ([facility] min[facility] Complex 06/01/2017 Patient [...] shoulder 04/02/2017 Appointment: Araceli Silva WPtel: [phone] [facility] [place] (15 min) Moderate 04/02/2017 Patient Education: [...] stomach upset. 03/12/2017 Appointment: [facility] Silva WPtel: [phone] [facility] [place] (15 min) Moderate 03/12/2017 Patient [...] check LUANN. 01/08/2017 Appointment: Araceli Silva WPtel: [facility]8 [facility] (15 min) Moderate 01/08/2017 Patient Education: Patient [...] with Remicaide. 12/08/2016 Appointment: Araceli Silva WPtel: [facility]0 [facility] (15 min) Moderate 12/08/2016 Patient Education: Patient [...] for now 11/17/2016 Appointment: Araceli Silva WPtel: [facility] (15 min) Moderate 11/17/2016 Patient Education: Patient [...] of over-medication. 11/10/2016 Appointment: Maricel Gee WPtel: [facility]5 [facility] (30 min) Complex 11/10/2016 Patient Education: Patient [...] steroids, immunosuppression. 11/05/2016 Appointment: Araceli Silva WPtel: [facility]5 [facility] (15 min) Moderate 11/05/2016 Patient Education: Patient [...] cbc today. 10/07/2016 Appointment: [facility] Silva WPtel[facility] [phone] [facility] (15 min) Moderate 10/07/2016 Patient Education: Patient Medication Summary Completed 10/07/2016 Care Plan: Referral Order SNOMED-CT : [id number] Pending 10/07/2016 Care Plan: Referral Order SNOMED-CT : [id number] Pending 10/07/2016 Visit Plan: Hemarthrosis -right shoulder-only able to drain 5ml of bloody drainage-unable to give oral steroids due to recent GI bleed -will give kenalog injection today in the office-discussed getting OSMO patch 10/02/2016 Appointment: Ila Kennedy WPtel: [facility]2 [phone] [place] (30 min) Complex 10/02/2016 Patient Education: Patient Medication Summary Completed 10/02/2016 Appointment: Araceli Silva WPtel: [facility]5 [facility] (15 min) Moderate 09/23/2016 Appointment: Araceli Silva WPtel: [facility]5 [facility] [place] (15 min) Moderate 09/17/2016 Visit Plan: Sacroiliitis - back exercises discussed with the patient, pt to continue with anti-inflammatories. Pt is to call if the symptoms do not improve or if they worsen. Kenalog injection today in the office. 09/12/2016 Appointment: Ila Kennedy WPtel: [facility]5 [phone] [place] (15 min) Moderate 09/12/2016 Patient Education: [...] Injection of kenalog 1mL - 40mg - [employer] - lot #[id number] , expires oct 2017 Chronic Pain Syndrome - pt has chronic pain - has been maintained on current medications, has not sought out other medications, only uses PRN pain medications as directed, and understands the consequences of over-medication. 09/08/2016 Appointment: Araceli Silva WPtel: [facility]8 [facility] (15 min) Moderate 09/08/2016 Patient Education: [...] magnesium level 08/26/2016 Appointment: Araceli Silva WPtel: [facility] (15 min) Moderate 08/26/2016 Patient Education: Patient [...] Summary Completed 08/18/2016 Appointment: Araceli Silva WPtel: [facility]3 [facility] [place] (15 min) Moderate 08/13/2016 Appointment: Araceli Silva WPtel: [address] [place], [place] [phone] (15 min) Moderate 08/06/2016 Visit Plan: Chronic [...] the daytime. 07/30/2016 Appointment: Araceli Silva WPtel: [phone] [phone] (15 min) Moderate 07/30/2016 Patient Education: Patient Medication Summary Completed 07/30/2016 Visit Plan: Left shoulder pain - improving - pt is to notify clinic if symptoms do not improve, if they worsen, or with any questions or concerns. Nocturia - will give samples, pt is to notify clinic if symptoms do not improve. 07/14/2016 Appointment: Maricel Gee WPtel: [phone] [phone] (30 min) Complex 07/14/2016 Patient Education: Patient [...] any dyspnea. 07/04/2016 Appointment: Maricel Gee WPtel: [facility]6 [facility] (30 min) Complex 07/04/2016 Patient Education: Patient [...] medication. 06/26/2016 Appointment: Araceli Silva WPtel: [phone] [facility] (15 min) Moderate 06/26/2016 Patient Education: Patient [...] over-medication. 05/28/2016 Appointment: Araceli Silva WPtel: [phone] [facility] [place] (15 min) Moderate 05/28/2016 Patient Education: Patient Medication Summary Completed 05/28/2016 Patient Education: Hypertension Completed 05/28/2016 Appointment: Araceli Silva WPtel: [phone] [facility] [place] (15 min) Moderate 05/12/2016 Appointment: [facility]Ptel[phone] [facility] [place] (15 min) Moderate 04/15/2016 Appointment: [facility] Silva WPtel: [phone] [facility] [place] (30 min) Complex 03/25/2016 Visit Plan: [...] the premarin. 03/18/2016 Appointment: [facility]eli Silva WPtel: [phone] [facility] [place] (30 min) Complex 03/18/2016 Patient Education: Patient Medication Summary Completed 03/18/2016 Appointment: Araceli Silva WPtel: [phone] [phone] (15 min) Moderate 02/19/2016 Visit Plan: Hypertension [...] of over-medication. 01/29/2016 Appointment: Araceli Silva WPtel: [facility]1 [facility] (15 min) Moderate 01/29/2016 Patient Education: Patient Medication Summary Completed 01/29/2016 Visit Plan: Discussed MRI of the neck - pt is interested in doing this - however, not prior to changing her medication first to see if this helps her pain 01/01/2016 Appointment: Araceli Silva WPtel: [phone] [phone] (15 min) Moderate 01/01/2016 Patient Education: Patient Medication Summary Completed 01/01/2016 Patient Education: Hypertension Completed 01/01/2016 Appointment: Araceli Silva WPtel: [phone] [facility] (15 min) Moderate 12/03/2015 Visit Plan: Chronic [...] or nonhealing. 11/01/2015 Appointment: Ila Kennedy WPtel: [facility]5 [phone] (15 min) Moderate 11/01/2015 Patient Education: Patient Medication Summary Completed 11/01/2015 Visit Plan: Chronic Pain Syndrome - pt has chronic pain - has been maintained on current medications, has not sought out other medications , only uses PRN pain medications as directed, and understands the consequences of over-medication. Muscle spasms - recommended muscle rub. 09/04/2015 Appointment: Aarceli Silva WPtel: [address] [place], [place] [phone] (15 min) Moderate 09/04/2015 Patient Education: Patient Medication Summary Completed 09/04/2015 Visit Plan: Ecchymosis/hematoma - improving - discussed natural progression of hematomas - watchful waiting. 2015 Appointment: Araceli Silva WPtel: [address] [place], [place] [phone] (15 min) Moderate 2015 Patient Education: Patient Medication Summary Completed 2015 Visit Plan: Cellulitis - continue with oral antibiotics as previously directed, return to clinic as previously directed, call for acute change in symptoms, worsening redness, warmth, discharge. 07/18/2015 Appointment: Ila Kennedy WPtel: [facility]0 [phone] (30 min) Complex 07/18/2015 Patient Education: Patient [...] center/surgery center. 07/02/2015 Appointment: Araceli Silva WPtel: [address] [place], [place] [address] [place] (15 min) Moderate 07/02/2015 Patient Education: [...] and safety with ambulation. 04/09/2015 Appointment: Araceli Sliva WPtel: [phone] [facility] (15 min) Moderate 04/09/2015 Patient Education: Patient [...] supplementation. 02/08/2015 Appointment: Araceli Silva WPtel: [phone] [phone] (15 min) Moderate 02/08/2015 Patient Education: Patient [...] the evening. 12/11/2014 Appointment: Araceli Silva WPtel: [facility] (15 min) Moderate 12/11/2014 Patient Education: [...] - improved. 11/09/2014 Appointment: Araceli Silva WPtel: [facility]2 [facility] (15 min) Moderate 11/09/2014 Patient Education: Patient Medication Summary Completed 11/09/2014 Patient Education: Hypertension Completed 11/09/2014 Visit Plan: Leg pain/cellulitis of leg - start on the doxycycline twice daily - take this x 2 weeks, if the symptoms in your leg/ thigh are not completely resolved, there is a refill that is available. start on a probiotic one pill daily (iSpecimen or Assurz) this will help prevent the development of a bad type of diarrhea that can occur when taking antibiotics. Ulcer of toe - improving. 10/23/2014 Appointment: Araceli Silva WPtel: [phone] (15 min) Moderate 10/23/2014 Patient Education: Patient Medication Summary Completed 10/23/2014 Visit Plan: Ulcer - keep lesion covered, antibiotic ointment to be used, monitor - call if redness increases or starts streaking up the foot. 10/16/2014 Appointment: Araceli Silva WPtel: [facility]6 [facility] (15 min) Moderate 10/16/2014 Patient Education: Patient [...] peripheral edema. 09/14/2014 Appointment: Araceli Silva WPtel: [address] [place], [place] [phone] Follow up 09/14/2014 Patient Education: Patient Medication [...] medication. 07/12/2014 Appointment: Ar[facility]eli Silva WPtel: [phone] [facility] [place] ([place]) New Patient 07/12/2014 Patient Education: [...] start on a probiotic one pill daily (iSpecimen or Assurz) this will help prevent the development of a bad type of diarrhea that can occur when taking antibiotics. . Leg pain/cellulitis of leg - start on the doxycycline twice daily - take this x 2 weeks, if the symptoms in your leg/thigh are not completely resolved, there is a refill that is available. start on a probiotic one pill daily (iSpecimen or Assurz) this will help prevent the development of [...] evening. . Hemarthrosis - drain right shoulder. Chronic Pain Syndrome - pt has chronic pain - has been maintained on current medications, has not sought out other medications, only uses PRN pain medications as directed, and understands the consequences of over-medication. . Hemarthrosis - drain right shoulder. Injection of kenalog 1mL - 40mg - [employer] - lot #[id number] , expires oct 2017 Chronic Pain Syndrome [...] did not need joints drained today. . Iron deficiency Anemia - recommended pt [...] Inflammatory Arthritis - continue with Remicaide. . Hemarthrosis -right shoulder-only able to drain [...] 6 small meals during the daytime. . Hemarthrosis - pt was prepped and [...] clinic if symptoms do not improve. . Left shoulder pain - ecchymosis of the shoulder - Pt denies trauma - will check x-ray - will treat as indicated, pt is to notify clinic if symptoms do not improve, if they worsen, or with any questions or concerns. Pt is to go to the ER if shoulder becomes, red or warm to the touch, or with any dyspnea. . Chronic Pain Syndrome - pt has [...] hands/fingers. We will contact [employer] in [place] for paperwork regarding the scooter. . Hypertension [...] progression of hematomas - watchful waiting. . Rheumatoid arthritis of shoulders, Severe edema [...] scheduled. Patient verbalized understanding of plan. . Hypertension - well controlled - continue [...] Dr. Ambrocio's associate. Continue with steroids, immunosuppression. bumex daily in the afternoon . Edema-worsening- [...] to continue with use of compression sleeves. [id number] sep 2018 bristol 2ml kenalog . Hypertension [...] office. two old goats muscle rub from [employer] farm [facility] home. . Chronic Pain Syndrome [...] to see if this helps her pain next mammogram will be due in Oct. Cervical Spine pain - continue with supportive care - monitor symptoms. Chronic Pain Syndrome - pt has chronic pain - has been maintained on current medications, has not sought out other medications, only uses PRN pain medications as directed, and understands the consequences of over-medication. ok for appt with Danuta Klein - [...] assure normal liver response to medications. . Chronic Pain Syndrome - pt has chronic pain - has been maintained on current medications, has not sought out other medications, only uses PRN pain medications as directed, and understands the consequences of over- medication. Osteoporosis - prolia injections to be ordered for the pt through the cancer center/surgery center.
[2018-01-25 17:26] LABS: BASOPHILS % (AUTO) 0 % (0-10); EOSINOPHILS % (AUTO) 0 % (0-10); HEMATOCRIT 36 % (35-52); HEMOGLOBIN 11.7 G/DL (11.5-16.0); LYMPHOCYTES # (AUTO) 1.1 X 10^3 (1.0-4.0); LYMPHOCYTES % (AUTO) 13 % (12-44); MEAN CORPUSCULAR HEMOGLOBIN 30 PG (25-34); MEAN CORPUSCULAR HGB CONC 33 G/DL (32-36); MEAN CORPUSCULAR VOLUME 92 FL (80-99); MEAN PLATELET VOLUME 8.6 FL (7.4-10.4); MONOCYTES % (AUTO) 12 % (0-12); NEUTROPHILS # (AUTO) 6.3 X 10^3 (1.8-7.8); NEUTROPHILS % (AUTO) 75 % (42-75); PLATELET COUNT 320 10^3/uL (130-400); RED CELL DISTRIBUTION WIDTH 14.8 % (10.0-14.5); WHITE BLOOD COUNT 8.4 10^3/uL (4.3-11.0)
--- NOTE | 2018-01-25 17:28 | ED Abdominal Pain ---
General Chief Complaint: Abdominal/GI Problems Stated Complaint: VOMITING BLOOD/ABD DISCOMFORT Nursing Triage Note: PT STATES SHE HAS HAD NAUSEA VOMITING FOR THE LAST THREE WEEKS, STATES SHE HAS A HX OF BOWEL OBSTRUCTION, HAS REPORTED CONSTIPATION. STATES SHE ATE [employer] EARLIER THIS AFTERNOON AND VOMITED SHORTLY AFTERWARDS, NOTED IT WAS RED. PT'S DAUGHTER BROUGHT A SAMPLE INTO THE ED. Sepsis Screen: No Definite Risk Source of Information: Patient Exam Limitations: No Limitations History of Present Illness Date Seen by Provider: Jan 25, 2018 Time Seen by Provider: 16:52 Initial Comments Here with report of abdominal pain and no bowel movement for the last couple of days. Has had nausea and ultimately vomiting today. The vomit was dark colored and her afternoon nurse wanted her checked out. She does have history of small bowel obstruction in 2016. She is not on blood thinners. Does have history of atrial fibrillation. Has chronic lower extremity edema and this is about the same. She is unable to take her afternoon medicines due to the nausea and vomiting. That includes the Lasix that she would normally take. She has leg wraps bilateral lower extremities up to the knees. Typically would have them wrapped up to the thighs. She follows with Dr. Silva. She did have a sausage biscuit this morning and strawberry banana urinate this afternoon with some sips of Sprite. That apparently is what has come up. The vomitus is brown in color. Denies breathing problems or chest pain. Timing/Duration: 2-3 Days, Getting Worse Severity/Quality: Moderate, Aching Location: Generalized Abdomen Radiation: No Radiation Activities at Onset: None Modifying Factors: Worsens With Eating, Worsens With Movement; Improves With Vomiting Associated Symptoms: No Back Pain, No Chest Pain, No Fever/Chills; Nausea/ Vomiting; No Shortness of Air; Swelling/Mass in Abdomen; No Weakness Allergies and Home Medications Allergies Coded Allergies: Penicillins (Verified Allergy, Unknown, 08/11/12) Sulfa (Sulfonamide Antibiotics) (Verified Allergy, Unknown, 09/17/16) Home Medications Ascorbate Calcium 500 Mg Tablet, 500 MG PO HS, (Reported) Calcium Carbonate/Vitamin D3 1 Each Tablet, 1 TAB PO BID, (Reported) Cholecalciferol (Vitamin D3) 1,000 Unit Capsule, 1,000 UNIT PO BID, (Reported) Cyanocobalamin 1,000 Mcg/Ml Inj, 1,000 MCG IJ MONTHLY, (Reported) Denosumab 60 Mg/1 Ml Disp.syrin, SQ EVERY 6 MONTHS, (Reported) Diclofenac Sodium 100 Gm Gel..gram., 4 GM TOP QID APPLY TO SHOULDERS, UPPER BACK AND NECK Prescribed by: WOODY SILVA on 12/14/17921 Diltiazem HCl 360 Mg Cap.er.24h, 360 MG PO DAILY, (Reported) Fentanyl 1 Each Patch.td72, 25 MCG TD Q72H, (Reported) Fentanyl 1 Each Patch.td72, 100 MCG TD Q72H, (Reported) Furosemide 40 Mg Tablet, 40 MG PO DAILY@ Prescribed by: WOODY SILVA on 12/14/17921 Iodine/Sodium Iodide 30 Ml Tincture, TP HS, (Reported) APPLY AROUND EDGE OF SORE ON BOTTOM OF RIGHT FOOT Oxycodone HCl 30 Mg Tablet, 15 MG PO QID, (Reported) TAKES 1/2 OF A (30 MG) TABLET Pantoprazole Sodium 40 Mg Tablet.dr, 40 MG PO DAILY, (Reported) Polyethylene Glycol 3350 17 Gm Powd.pack, 17 GM PO HS, (Reported) Potassium Chloride 10 Meq Tablet.er, 2 TAB PO TID Prescribed by: WOODY SILVA on 12/14/17921 Prednisone 5 Mg Tablet, 5 MG PO 0130, (Reported) Silver Sulfadiazine 25 Gm Cream..g., TOP HS, (Reported) APPLY TO BOTTOM OF RIGHT FOOT Patient Home Medication List Home Medication List Reviewed: Yes Review of Systems Review of Systems Constitutional: see HPI; No chills, No fever EENTM: No Symptoms Reported Respiratory: Denies Cough, Denies Shortness of Air Cardiovascular: Denies Chest Pain; Edema, Irregular Heart Rate Gastrointestinal: Abdomen Distended, Abdominal Pain, Vomiting Genitourinary: No Symptoms Reported Musculoskeletal: back pain (chronic), neck pain (chronic) Skin: no symptoms reported Psychiatric/Neurological: No Symptoms Reported All Other Systems Reviewed Negative Unless Noted: Yes Past Qcatvbx-Rqmeia-Snhmmw Hx Past Med/Social Hx: Reviewed Nursing Past Med/Soc Hx Patient Social History Alcohol Use: Denies Use Alcohol Beverage of Choice: Wine, Vodka Type Used: Cigarettes Former Smoker, Quit: Dec 05, 1961 2nd Hand Smoke Exposure: No Recent Foreign Travel: No Contact w/Someone Who Travel: No Recent Infectious Disease Expo: No Recent Hopitalizations: No Immunizations Up To Date Tetanus Booster (TDap): Unknown PED Vaccines UTD: Yes Date of Pneumonia Vaccine: Mar 02, 2014 Date of Influenza Vaccine: Dec 06, 2017 Seasonal Allergies Seasonal Allergies: No Past Medical History Surgeries: Yes (6 back and 3 total knees, 4 alt. knee surger, L breast biopsy) Appendectomy, Breast, Eye Surgery, Joint Replacement, Orthopedic Respiratory: No Currently Using CPAP: No Currently Using BIPAP: No Cardiac: Yes High Cholesterol, Hypertension Neurological: Yes Neuropathy, Spinal Cord Injury : No Reproductive Disorders: No Female Reproductive Disorders: Denies [employer]CH[employer]ICIAN History: Menopausal HIV/AIDS: No Genitourinary: No Bladder Infection Gastrointestinal: Yes (Bleeding ulcer August 2016) Gastroesophageal Reflux, Gastrointestinal Bleed, Obstructive Bowel, Ulcer, Irritable Bowel Musculoskeletal: Yes (multiple back and knee surgeries, osteoarthritis, SCIATICA) Degenerate Disk Disease, Arthritis, Fibromyalgia, Rheumatoid Arthritis, Scoliosis, Chronic Back Pain, Fractures Endocrine: No HEENT: Yes Cataract Loss of Vision: Denies Hearing Impairment: Hard of Hearing Cancer: No Psychosocial: No Integumentary: Yes (lymphedema, bruises) Blood Disorders: Yes (hx of anemia) Adverse Reaction/Blood Tranf: No Family Medical History Reviewed Nursing Family Hx Heart Disease, Hypertension Physical Exam Vital Signs Vital Signs - First Documented 01/25/18 16:43 Temp 98.3 Pulse 100 Resp 20 B/P (MAP) 144/94 (111) Pulse Ox 98 O2 Delivery Room Air Capillary Refill : Less Than 3 Seconds Height/Weight/BMI Height: 5'7.00" Weight: 148lbs. 0.0oz. 67.532413gk; 27.4 BMI Method:Stated General Appearance: WD/WN, no apparent distress HEENT: PERRL/EOMI, pharynx normal Neck: full range of motion, supple Respiratory: lungs clear, normal breath sounds Cardiovascular: regular rate, rhythm, no murmur Gastrointestinal: abnormal bowel sounds (decreased), distended; No guarding, No rebound; tenderness (diffusely but greater in the upper quadrants bilateral) Extremities: non-tender, normal inspection Back: normal inspection, no CVA tenderness, no vertebral tenderness Neurologic/Psychiatric: alert, oriented x 3 Skin: normal color, warm/dry Progress/Results/Core Measures Results/Orders Lab Results Laboratory Tests Test 01/25/18 17:07 01/25/18 17:32 Range/Units White Blood Count 8.4 4.3-11.0 10^3/uL Red Blood Count 3.90 L 4.35-5.85 10^6/uL Hemoglobin 11.7 11.5-16.0 G/DL Hematocrit 36 35-52 % Mean Corpuscular Volume 92 80-99 FL Mean Corpuscular Hemoglobin 30 25-34 PG Mean Corpuscular Hemoglobin Concent 33 32-36 G/DL Red Cell Distribution Width 14.8 H 10.0-14.5 % Platelet Count 320 130-400 10^3/uL Mean Platelet Volume 8.6 7.4-10.4 FL Neutrophils (%) (Auto) 75 42-75 % Lymphocytes (%) (Auto) 13 12-44 % Monocytes (%) (Auto) 12 0-12 % Eosinophils (%) (Auto) 0 0-10 % Basophils (%) (Auto) 0 0-10 % Neutrophils # (Auto) 6.3 1.8-7.8 X 10^3 Lymphocytes # (Auto) 1.1 1.0-4.0 X 10^3 Monocytes # (Auto) 1.0 0.0-1.0 X 10^3 Eosinophils # (Auto) 0.0 0.0-0.3 10^3/uL Basophils # (Auto) 0.0 0.0-0.1 10^3/uL Sodium Level 132 L 135-145 MMOL/L Potassium Level 2.7 L 3.6-5.0 MMOL/L Chloride Level 78 L 98-107 MMOL/L Carbon Dioxide Level 37 H 21-32 MMOL/L Anion Gap 17 H 5-14 MMOL/L Blood Urea Nitrogen 62 H 7-18 MG/DL Creatinine 1.19 0.60-1.30 MG/DL Estimat Glomerular Filtration Rate 43 BUN/Creatinine Ratio 52 Glucose Level 134 H 70-105 MG/DL Calcium Level 9.6 8.5-10.1 MG/DL Corrected Calcium 9.4 8.5-10.1 MG/DL Magnesium Level 1.9 1.8-2.4 MG/DL Total Bilirubin 1.1 H 0.1-1.0 MG/DL Aspartate Amino Transf (AST/SGOT) 18 5-34 U/L Alanine Aminotransferase (ALT/SGPT) 14 0-55 U/L Alkaline Phosphatase 82 40-136 U/L C-Reactive Protein High Sensitivity 0.49 0.00-0.50 MG/DL Total Protein 7.5 6.4-8.2 GM/DL Albumin 4.2 3.2-4.5 GM/DL Lipase 26 8-78 U/L Urine Color YELLOW Urine Clarity CLEAR Urine pH 7 5-9 Urine Specific [place] 1.005 L 1.016-1.022 Urine Protein NEGATIVE NEGATIVE Urine Glucose (UA) NEGATIVE NEGATIVE Urine Ketones NEGATIVE NEGATIVE Urine Nitrite NEGATIVE NEGATIVE Urine Bilirubin NEGATIVE NEGATIVE Urine Urobilinogen NORMAL NORMAL MG/DL Urine Leukocyte Esterase 2+ H NEGATIVE Urine RBC (Auto) 3+ H NEGATIVE Urine RBC 5-10 H /HPF Urine WBC 5-10 H /HPF Urine Squamous Epithelial Cells 0-2 /HPF Urine Crystals NONE /LPF Urine Bacteria MODERATE H /HPF Urine Casts NONE /LPF Urine Mucus NEGATIVE /LPF Urine Culture Indicated YES My Orders Orders - GREG KERR MD Cbc With Automated Diff (01/25/18 16:58) Comprehensive Metabolic Panel (01/25/18 16:58) Hs C Reactive Protein (01/25/18 16:58) Lipase (01/25/18 16:58) Magnesium (01/25/18 16:58) Ua Culture If Indicated (01/25/18 16:58) Saline Lock/Iv-Start (01/25/18 16:58) I-Stat Bedside Testing (01/25/18 16:59) Ct Abdomen/Pelvis Wo (01/25/18 17:18) Ondansetron Injection (Zofran Injectio (01/25/18 17:48) Urine Culture (01/25/18 17:32) Catheter(Urinary) Insert & Ass 03,15 (01/25/18 18:31) Medications Given in ED Current Medications Medications Dose Ordered Sig/Brittany Route Start Time Stop Time Status Last Admin Dose Admin Ondansetron HCl 4 mg STK-MED ONCE .ROUTE 01/25/18 17:48 01/25/18 17:51 DC 01/25/18 17:53 4 MG Vital Signs/I&O 01/25/18 16:43 Temp 98.3 Pulse 100 Resp 20 B/P (MAP) 144/94 (111) Pulse Ox 98 O2 Delivery Room Air Blood Pressure Mean: 111 Progress Progress Note : Progress Note Seen and evaluated. IV, labs, UA and i-STAT ordered. Patient's creatinine is elevated at 1.3 with estimated GFR around 40. We will get CT abdomen and pelvis without contrast due to concerns for bowel obstruction with history of bowel obstruction. Monitor patient. 1811: Labs reviewed with Dr. Silva. Patient has fairly significant hypokalemia. We will initiate potassium replacement. Due to her chronic edema, patient will be placed on Lasix drip and Bradford catheter will be initiated. She also needs intravascular of fluid so we will gently hydrate. Patient is very complicated due to the chronic edema and her kidney function and electrolyte concerns. Due to this, patient will be admitted, inpatient status. I discussed this with the patient and family who agree with plan. Zofran 4 mg IV given for nausea. CT does show obstipation and MiraLAX will be initiated. Diagnostic Imaging Diagonstic Imaging: CT Plain Films/CT/US/NM/MRI: abdomen, c-spine Comments NAME: CANDACE ANGUIANO [facility] REC#: [id number] PT STATUS: REG ER : 1935 PHYSICIAN: GREG KERR MD ADMIT DATE: 01/25/18/ER Draft Date of Exam:01/25/18 CT ABDOMEN/PELVIS WO PROCEDURE: CT abdomen and pelvis without contrast. TECHNIQUE: Multiple contiguous axial images were obtained through the abdomen and pelvis without the use of intravenous contrast. INDICATION: Abdominal pain with vomiting and distention. COMPARISON: December 05, 2015. FINDINGS: The visualized lung bases are clear. The unenhanced liver, spleen, adrenal glands, and left kidney are grossly unremarkable. Hypodensity within the anterior aspect of the right kidney is again identified, appearing similar to the prior exam. The right kidney is otherwise unremarkable. Moderate vascular calcifications within the abdominal aorta and its branch vessels without aneurysmal dilatation of the abdominal aorta. The urinary bladder is unremarkable. The uterus is not visualized, likely surgically absent. No abnormal adnexal mass lesion. Moderate amount of stool is identified throughout the colon with prominent stool ball within the distal sigmoid colon and rectal vault. Mild haziness is identified within the fat adjacent to the rectum. No dilated loops of small bowel. No significant adenopathy, free air, or free fluid within the abdomen or pelvis. Mild diffuse anasarca. Extensive postsurgical changes are again identified throughout the thoracolumbar spine. No acute osseous abnormality. IMPRESSION: Moderate amount of stool throughout the colon with prominent stool ball within the rectal vault. Findings may relate to constipation/obstipation. No evidence of small bowel obstruction. Extensive postsurgical changes again noted throughout the spine. Mild colonic diverticulosis without CT evidence of diverticulitis. Additional findings as above. Dictated on workstation # [id number] Dict: 01/25/188 Trans: 01/25/18 1828 [id number] Interpreted by: SAQIB CHAN MD Electronically signed by: Departure Communication (Admissions) Time/Spoke to Admitting Phy: 18:12 Impression Primary Impression: Hypokalemia Additional Impressions: Generalized abdominal pain Nausea and vomiting Qualified Codes: R11.2 - Nausea with vomiting, unspecified Acute renal failure Qualified Codes: N17.9 - Acute kidney failure, unspecified Chronic edema Dehydration Disposition: ADMITTED INPATIENT Condition: Stable Admissions Decision to Admit Reason: Admit from ER (General) Decision to Admit/Date: Jan 25, 2018 Time/Decision to Admit Time: 18:12 Departure-Patient Inst. Referrals: WOODY SILVA MD (PCP/Family) Primary Care Physician GREG KERR MD Jan 25, 2018 17:28
--- OUTSIDE RECORDS SUMMARY | 2018-01-25 17:31 | XMS REPORT | CCD ---
Author Author [facility] Organization [facility] Address [address] [place] [address] Phone Care Team Providers Care Deputy Probation Officer Name Role Phone PP Unavailable CCM Unavailable Summary Purpose Interface Exchange Insurance Providers Payer name Policy type / Coverage type Covered democrat ID Effective Begin Date Effective End Date [employer] Medicare Part B [id number] 2017 Unknown AET[employer] Medicare Part B [id number] Unknown Family history Father Diagnosis Age At [...] Unknown Retired 07/12/[address]: 5566500 Quit over 10 years ago 1967 07/12/2014 Alcohol history Unknown occasionally drinks alcohol 07/12/2014 Allergies, Adverse Reactions, Alerts Substance Reaction Codes Entered Date Inactivated Date Status * NO KNOWN FOOD ALLERGIES Unknown 07/12/2014 No Inactive Date Active Penicillin Unknown 07/12/2014 No Inactive Date Active SULFA(SULFONAMIDE ANTIBIOTICS) Unknown 07/12/2014 No Inactive Date Active Past Medical History Illness Codes Condition Status Onset Date Resolved Date Essential (primary) hypertension ICD-9: 401.1 ICD-10: I10 [...] ICD-9: 714.0 ICD-10: M06.011 Active 03/12/2017 Unknown Chronic atrial fibrillation ICD-9: 427.31 ICD-10: I48.2 Active 06/17/2017 Unknown Hemarthrosis, left shoulder ICD-9: 719.11 ICD-10: M25.012 Active 06/01/2017 Unknown Chronic pain syndrome ICD-9: 338.4 ICD-10: G89.4 Active 10/07/2016 Unknown Essential (primary) hypertension ICD-9: 401.9 ICD-10: [...] Problems Condition Codes Effective Dates Condition Status Essential (primary) hypertension ICD-9: 401.1 ICD-10: I10 [...] shoulder ICD-9: 714.0 ICD-10: M06.011 03/12/2017 Active Chronic atrial fibrillation ICD-9: 427.31 ICD-10: I48.2 06/17/2017 Active Hemarthrosis, left shoulder ICD-9: 719.11 ICD-10: M25.012 06/01/2017 Active Chronic pain syndrome ICD-9: 338.4 ICD-10: G89.4 10/07/2016 Active Essential (primary) hypertension ICD-9: 401.9 ICD-10: [...] Start Date Stop Date Status Fill Instructions pantoprazole 40 mg tablet,delayed release RxNorm: 487823 Tablet(s) Take 1 tablet by mouth daily 10/21/2017 04/18/2018 Active - Ref: [id number] potassium chloride ER 10 mEq capsule,extended release RxNorm: 039745 TAKE 1 CAPSULE BY MOUTH TWICE DAILY WHEN TAKING LASIX (FUROSEMIDE) 10/09/2017 No Stop Date Active fentanyl 25 mcg/hr transdermal patch RxNorm: 085975 1 Patch TD Q72H use with 100mcg patch for a total of 125mcg daily 10/01/2017 10/30/2017 Active fentanyl 100 mcg/hr transdermal patch RxNorm: 151809 1 Patch TD Q72H use with 25mcg/hr patch 10/01/2017 10/30/2017 Active potassium chloride ER 10 mEq tablet,extended release(part/ cryst) RxNorm: 9102884 1 Capsule(s) PO BID when taking lasix 09/22/2017 09/16/2018 Active oxycodone 30 mg tablet RxNorm: 6080651 1/2 Tablet(s) PO Q6 04/201710/29/2017 Active fentanyl 100 mcg/hr transdermal patch RxNorm: 033362 1 Patch TD Q72H use with 25mcg/hr patch 08/31/2017 09/29/2017 Inactive Kenalog 40 mg/mL suspension for injection RxNorm: 5578603 1 Milliliter(s) Inj 08/31/2017 08/31/2017 Inactive fentanyl 25 mcg/hr transdermal patch RxNorm: 068433 1 Patch TD Q72H use with 100mcg patch for a total of 125mcg daily 08/31/2017 09/29/2017 Inactive cyanocobalamin (vit B-12) 1,000 mcg/mL injection solution RxNorm: 434464 1 Milliliter(s) Inj monthly 08/21/201708/15 Active please provide her with syringe/needle for injection cyanocobalamin (vit B-12) 1,000 mcg/mL injection solution RxNorm: 064625 1 Milliliter(s) Inj monthly 08/21/201708/20 Inactive please provide her with syringe/needle for injection Kenalog 40 mg/mL suspension for injection RxNorm: 1721950 2 Milliliter(s) Inj 1mL in each shoulder 08/21/2017 08/21/2017 Inactive cyanocobalamin (vit B-12) 1,000 mcg/mL injection solution RxNorm: 903932 1 Milliliter(s) Inj monthly 08/21/201708/20 Inactive please provide her with syringe/needle for injection Kenalog 40 mg/mL suspension for injection RxNorm: 6467498 2 Milliliter(s) Inj UD 08/12/2017 08/12/2017 Inactive fentanyl 25 mcg/hr transdermal patch RxNorm: 804716 1 Patch TD Q72H use with 100mcg patch for a total of 125mcg daily 08/05/2017 08/30/2017 Inactive fentanyl 100 mcg/hr transdermal patch RxNorm: 450399 1 Patch TD Q72H use with 25mcg/hr patch 08/05/2017 08/30/2017 Inactive Kenalog 40 mg/mL suspension for injection RxNorm: 8265957 2 Milliliter(s) Inj 1mL per shoulder 08/05/2017 08/05/2017 Inactive clindamycin HCl 150 mg capsule RxNorm: 677094 1 Capsule(s) PO QID Dr Shultz prescribed 07/23/2017 07/29/2017 Inactive prednisone 5 mg tablet RxNorm: 097209 1 Tablet(s) PO daily 11/201707/03/2018 Active Lasix 20 mg tablet RxNorm: 617945 1 Tablet(s) PO BID 201710/28/2017 Active fentanyl 25 mcg/hr transdermal patch RxNorm: 112931 1 Patch TD Q72H use with 100mcg patch for a total of 125mcg daily 07/01/2017 07/30/2017 Inactive fentanyl 100 mcg/hr transdermal patch RxNorm: 197225 1 Patch TD Q72H use with 25mcg/hr patch 07/01/2017 07/30/2017 Inactive potassium chloride ER 10 mEq capsule,extended release RxNorm: 240839 1 Capsule(s) PO BID when taking lasix 07/01/20172017 Inactive oxycodone 30 mg tablet RxNorm: 7396379 1/2 Tablet(s) PO Q6 08/22/2017 Inactive fentanyl 100 mcg/hr transdermal patch RxNorm: 692533 1 Patch TD Q72H use with 25mcg/hr patch 05/07/2017 06/05/2017 Inactive fentanyl 25 mcg/hr transdermal patch RxNorm: 028587 1 Patch TD Q72H use with 100mcg patch for a total of 125mcg daily 05/07/2017 06/05/2017 Inactive fentanyl 100 mcg/hr transdermal patch RxNorm: 295690 1 Patch TD Q72H 04/08/2017 05/06/2017 Inactive fentanyl 25 mcg/hr transdermal patch RxNorm: 189323 1 Patch TD Q72H use with 100mcg patch for a total of 125mcg daily 04/08/2017 05/06/2017 Inactive Kenalog 40 mg/mL suspension for injection RxNorm: 4730941 1.5 Milliliter(s) Inj 04/02/2017 04/02/2017 Inactive fentanyl 100 mcg/hr transdermal patch RxNorm: 676045 1 Patch TD Q72H 03/12/2017 04/07/2017 Inactive fentanyl 25 mcg/hr transdermal patch RxNorm: 785015 1 Patch TD Q72H use with 100mcg patch for a total of 125mcg daily 03/12/2017 04/07/2017 Inactive oxycodone 30 mg tablet RxNorm: 2453017 1/2 Tablet(s) PO Q6 09/201704/07/2017 Inactive cyanocobalamin (vit B-12) 1,000 mcg/mL injection syringe RxNorm: 356316 1 Milliliter(s) Inj monthly 02/16/2017 No Stop Date Active please provide with supplys needed for injection fentanyl 100 mcg/hr transdermal patch RxNorm: 759408 1 Patch TD Q72H 02/06/2017 03/07/2017 Inactive Myrbetriq 50 mg tablet,extended release RxNorm: 7262484 1 Tablet(s) PO QPM 12/11/2016 07/22/2017 Inactive oxycodone 30 mg tablet RxNorm: 6865751 1/2 Tablet(s) PO Q6 10/201601/06/2017 Inactive naproxen 500 mg tablet RxNorm: 998413 1 Tablet(s) PO BID Take 1 tablet by mouth two times daily as needed 12/08/201607/08 Inactive - First Attempt Ref: [id number] Myrbetriq 50 mg tablet,extended release RxNorm: 2589004 1 Tablet(s) PO QPM 11/17/2016 12/10/2016 Inactive fentanyl 100 mcg/hr transdermal patch RxNorm: 823565 1 Patch TD Q72H 11/12/2016 12/11/2016 Inactive Vesicare 10 mg tablet RxNorm: 477500 1 Tablet(s) PO QPM 201611/18/2016 Inactive oxycodone 10 mg tablet RxNorm: 9864450 1-2 Tablet(s) PO Q4 PRN as needed to take between 30mg dose if needed for extra pain control 201612/07/2016 Inactive fentanyl 75 mcg/hr transdermal patch RxNorm: 698480 1 TD Q72H 10/22/2016 11/10/2016 Inactive oxycodone 10 mg tablet RxNorm: 9252554 1-2 Tablet(s) PO Q4 PRN as needed to take between 30mg dose if needed for extra pain control 201611/04/2016 Inactive Kenalog 40 mg/mL suspension for injection RxNorm: 0848556 1 Milliliter(s) Inj 10/02/2016 10/02/2016 Inactive Kenalog 40 mg/mL suspension for injection RxNorm: 0273491 1 Milliliter(s) Inj 09/12/2016 09/12/2016 Inactive cyclobenzaprine 5 mg tablet RxNorm: 497337 1 Tablet(s) PO Q8 as needed muscle spasms 09/11/2016 07/22/2017 Inactive prednisone 10 mg tablets in a dose pack RxNorm: 220284 1 Tablet(s) PO UD 09/09/2016 06/23/2017 Inactive potassium chloride ER 10 mEq capsule,extended release RxNorm: 897350 1 Capsule(s) PO BID as needed when taking lasix 08/26/2016 06/30/2017 Inactive Lasix 20 mg tablet RxNorm: 324619 1 Tablet(s) PO BID daily x 10 days then as needed edema 08/26/2016 12/23/2016 Inactive naproxen 500 mg tablet RxNorm: 141058 Take 1 tablet by mouth two times daily as needed 08/18/2016 11/15/2016 Inactive - First Attempt Ref: [id number] Lasix 20 mg tablet RxNorm: 593095 1 Tablet(s) PO QAM daily x 10 days then as needed edema 08/18/2016 08/25/2016 Inactive Vesicare 5 mg tablet RxNorm: 131318 1 Tablet(s) PO QPM 201611/04/2016 Inactive potassium chloride ER 10 mEq capsule,extended release RxNorm: 527273 1 Capsule(s) PO QAM as needed when taking lasix 08/18/2016 08/25/2016 Inactive Myrbetriq 25 mg tablet,extended release RxNorm: 6530069 1 Tablet(s) PO QHS 07/14/2016 07/29/2016 Inactive pantoprazole 40 mg tablet,delayed release RxNorm: 023140 Take 1 tablet by mouth daily 06/30/2016 12/26/2016 Inactive - Ref: [id number] Embeda 20 mg-0.8 mg capsule, extend release, oral only RxNorm: 235145 1 Capsule(s ) PO daily 06/04/2016 06/03/2016 Inactive Embeda 20 mg-0.8 mg capsule, extend release, oral only RxNorm: 699962 1 Capsule(s ) PO daily 06/04/2016 07/01/2016 Inactive oxycodone 10 mg tablet RxNorm: 0552751 1 Tablet(s) PO QID as needed to take between 30mg dose if needed for extra pain control 201606/10/2016 Inactive oxycodone 30 mg tablet RxNorm: 6359034 1 Tablet(s) PO Q6 201611/04/2016 Inactive cyanocobalamin (vit B-12) 1,000 mcg/mL injection solution RxNorm: 547466 1 Milliliter(s) Inj monthly 02/22/201602/15 Inactive she also needs syringes/ needles for this solution QS oxycodone 30 mg tablet RxNorm: 4430840 1 Tablet(s) PO Q6 201503/19/2016 Inactive oxycodone 10 mg tablet RxNorm: 7209290 1 Tablet(s) PO QID as needed to take between 30mg dose if needed for extra pain control 201503/19/2016 Inactive oxycodone 10 mg tablet RxNorm: 9351183 1 Tablet(s) PO QID as needed to take between 30mg dose if needed for extra pain control 201502/18/2016 Inactive oxycodone 30 mg tablet RxNorm: 9589700 1 Tablet(s) PO Q6 201502/18/2016 Inactive pantoprazole 40 mg tablet,delayed release RxNorm: 196070 Take 1 tablet by mouth daily 01/22/2016 06/29/2016 Inactive - First Attempt Ref: [id number] oxycodone 30 mg tablet RxNorm: 5535205 1 Tablet(s) PO Q6 201501/28/2016 Inactive oxycodone 10 mg tablet RxNorm: 0947854 1 Tablet(s) PO QID as needed take between 20mg dose if needed for extra pain control 11/07/2015 12/06/2015 Inactive oxycodone 20 mg tablet RxNorm: 3531032 1 Tablet(s) PO Q6 as needed 11/07/2015 12/31/2015 Inactive doxycycline hyclate 100 mg tablet RxNorm: 235011 1 Tablet(s) PO BID 11/01/2015 11/10/2015 Inactive potassium chloride ER 10 mEq capsule,extended release RxNorm: 695357 1 Capsule(s) PO TIW as needed when taking lasix 09/04/2015 08/17/2016 Inactive Voltaren 1 % topical gel RxNorm: 636245 2 Gram(s) TOP QID 08/2909/03/2015 Inactive pa approved Voltaren 1 % topical gel RxNorm: 147153 2 Gram(s) TOP QID 08/0808/29/2015 Inactive naproxen 500 mg tablet RxNorm: 143627 1 Tablet(s) PO BID 201508/17/2016 Inactive naproxen 500 mg tablet RxNorm: 900836 1 Tablet(s) PO BID 201508/08/2015 Inactive doxycycline hyclate 100 mg tablet RxNorm: 883533 1 Tablet(s) PO BID do not take calcium/vitamin d while on antibiotic 07/18/2015 07/31/2015 Inactive Vitamin D2 50,000 unit capsule RxNorm: 124588 1 Capsule(s) PO QW 07/02/2015 11/18/2015 Inactive Premarin 0.3 mg tablet RxNorm: 941408 1 Tablet(s) PO daily 12/201505/09/2015 Inactive Premarin 0.3 mg tablet RxNorm: 863583 1 Tablet(s) PO daily 12/201503/17/2016 Inactive simvastatin 40 mg tablet RxNorm: 334785 1 Tablet(s) PO daily 03/17/2016 Inactive spironolactone 25 mg tablet RxNorm: 094592 TAKE ONE TABLET BY MOUTH DAILY 05/07/2015 05/27/2016 Inactive potassium chloride ER 10 mEq capsule,extended release RxNorm: 322315 1 Capsule(s) PO TIW as needed when taking lasix 04/17/2015 09/03/2015 Inactive alendronate 70 mg tablet RxNorm: 251845 1 Tablet(s) PO weekly QW 04/17/2015 07/01/2015 Inactive Vitamin D2 50,000 unit capsule RxNorm: 793486 1 Capsule(s) PO QW 03/30/2015 06/27/2015 Inactive Vitamin D2 50,000 unit capsule RxNorm: 528426 1 Capsule(s) PO QW 03/21/2015 03/29/2015 Inactive cyanocobalamin (vit B-12) 1,000 mcg/mL injection solution RxNorm: 512311 1 Milliliter(s) Inj monthly 03/19/201502/20 Inactive cyanocobalamin (vit B-12) 1,000 mcg/mL injection solution RxNorm: 389668 1 Milliliter(s) Inj monthly 03/16/201503/18 Inactive cyanocobalamin (vit B-12) 1,000 mcg/mL injection solution RxNorm: 187008 1 Milliliter(s) Inj monthly 03/16/201503/15 Inactive pantoprazole 40 mg tablet,delayed release RxNorm: 091755 1 Tablet(s) PO daily 03/05/2015 01/21/2016 Inactive Lasix 20 mg tablet RxNorm: 686063 1 Tablet(s) PO TIW as needed edema 02/08/2015 02/02/2016 Inactive oxycodone 10 mg tablet RxNorm: 3780410 1 Tablet(s) PO QID as needed take between 20mg dose if needed for extra pain control 11/09/2014 12/08/2014 Inactive oxycodone 20 mg tablet RxNorm: 5111818 1 Tablet(s) PO Q6 as needed 10/25/2014 11/06/2015 Inactive doxycycline hyclate 100 mg tablet RxNorm: 149469 1 Tablet(s) PO BID 10/23/2014 11/19/2014 Inactive Cipro 500 mg tablet RxNorm: 081157 1 Tablet(s) PO BID 201410/16/2014 Inactive Cipro 500 mg tablet RxNorm: 513427 1 Tablet(s) PO BID 201410/09/2014 Inactive oxycodone 20 mg tablet RxNorm: 9525102 1 Tablet(s) PO Q6 as needed 09/25/2014 10/24/2014 Inactive Lasix 20 mg tablet RxNorm: 130618 1 Tablet(s) PO TIW as needed edema 09/14/2014 01/11/2015 Inactive potassium chloride ER 10 mEq capsule,extended release RxNorm: 930149 1 Capsule(s) PO TIW as needed when taking lasix 09/14/2014 01/11/2015 Inactive doxycycline hyclate 100 mg tablet RxNorm: 742464 1 Tablet(s) PO BID 09/05/2014 09/14/2014 Inactive doxycycline hyclate 100 mg tablet RxNorm: 986323 1 Tablet(s) PO BID 09/05/2014 09/04/2014 Inactive oxycodone 20 mg tablet RxNorm: 6736809 1 Tablet(s) PO Q6 as needed 08/29/2014 09/24/2014 Inactive spironolactone 25 mg tablet RxNorm: 108503 1 Tablet(s) PO daily 08/11/2014 03/08/2015 Inactive oxycodone 20 mg tablet RxNorm: 3083015 1 Tablet(s) PO Q6 as needed 08/02/2014 08/28/2014 Inactive Vitamin D3 2,000 unit tablet RxNorm: 328403 1 Tablet(s) PO daily 07/14/2014 No Stop Date Active Vitamin D2 50,000 unit capsule RxNorm: 389924 1 Capsule(s) PO QW 07/14/2014 10/11/2014 Inactive Vitamin D2 50,000 unit capsule RxNorm: 183606 1 Capsule(s) PO QW 07/14/2014 07/13/2014 Inactive Prolia 60 mg/mL subcutaneous syringe RxNorm: 941034 Milliliter(s) SQ EVERY 6 MONTHS No Start Date Active Carafate 1 gram tablet RxNorm: 608726 1 Tablet(s) PO BID No Start Date Active Miralax oral RxNorm: 950608 oral No Start Date Active Stool Softener oral RxNorm: 62518 oral No Start Date Active Cardizem CD 360 mg capsule,extended release RxNorm: 079111 1 Capsule(s) PO daily No Start Date Active Calcium + Vitamin D oral RxNorm: 4018 oral No Start Date Active naproxen 500 mg tablet RxNorm: 901736 1 Tablet(s) PO BID No Start Date 08/05/2015 Inactive oxycodone 20 mg tablet RxNorm: 4066276 1 Tablet(s) PO Q6 as needed No Start Date 08/01/2014 Inactive aspirin 81 mg tablet RxNorm: 167865 1 Tablet(s) PO daily No Start Date 07/22/2017 Inactive simvastatin 40 mg tablet RxNorm: 159696 1 Tablet(s) PO daily No Start Date 05/09/2015 Inactive cyanocobalamin (vit B-12) 1,000 mcg/mL injection syringe RxNorm: 826389 1 Inj monthly No Start Date 02/15/2017 Inactive Reglan 10 mg tablet RxNorm: 071119 1 Tablet(s) PO as needed No Start Date 07/29/2016 Inactive alendronate 70 mg tablet RxNorm: 144702 1 Tablet(s) PO weekly No Start Date 04/16/2015 Inactive Protonix 40 mg tablet,delayed release RxNorm: 111008 1 Tablet(s) PO daily No Start Date 03/04/2015 Inactive cyclobenzaprine 5 mg tablet RxNorm: 724630 1 Tablet(s) PO Q8 as needed muscle spasms No Start Date 09/10/2016 Inactive Vitamin D3 1,000 unit capsule RxNorm: 296044 1 Capsule(s) PO daily No Start Date 07/13/2014 Inactive prednisone 10 mg tablets in a dose pack RxNorm: 936676 1 Tablet(s) PO UD No Start Date 09/08/2016 Inactive Medication Administered Medication Codes Instructions Start Date Status Kenalog 40 mg/mL suspension for injection RxNorm: 5744110 1Milliliter 08/31/2017 No longer Active Kenalog 40 mg/mL suspension for injection RxNorm: 9584601 2Milliliter 08/21/2017 No longer Active Kenalog 40 mg/mL suspension for injection RxNorm: 1077961 2MilliliterUD 08/12/2017 No longer Active Kenalog 40 mg/mL suspension for injection RxNorm: 0095378 2Milliliter 08/05/2017 No longer Active Kenalog 40 mg/mL suspension for injection RxNorm: 8965015 1.5Milliliter 04/02/2017 No longer Active Kenalog 40 mg/mL suspension for injection RxNorm: 7781074 1Milliliter 10/02/2016 No longer Active Kenalog 40 mg/mL suspension for injection RxNorm: 8889090 1Milliliter 09/12/2016 No longer Active Immunizations Vaccine Codes Date Status Influenza CVX: 141 12/08/2016 completed Influenza CVX: 141 11/19/2015 completed Influenza CVX: 141 01/10/2015 completed Pneumococcal (Adult) CVX: 133 12/11/2014 completed Pneumococcal (Adult) CVX: 133 12/11/2014 completed Assessments Condition Codes Effective Dates Rheumatoid arthritis without rheumatoid factor, left shoulder ICD-10: M06.012 ICD-9: 714.0 10/20/2017 Pain in left shoulder ICD-10: M25.512 ICD-9: 719.41 10/20/2017 Primary osteoarthritis, left shoulder ICD-10: M19.012 ICD-9: 715.91 10/20/2017 Essential (primary) hypertension ICD-10: I10 ICD-9: 401.1 10/20/2017 Rheumatoid arthritis without rheumatoid factor, right shoulder ICD-10: M06.011 ICD-9: 714.0 10/20/2017 Localized edema ICD-10: R60.0 ICD-9: 782.3 10/20/2017 Lymphedema, not elsewhere classified ICD-10: I89.0 ICD-9: 457.1 10/20/2017 Primary osteoarthritis, 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 ICD-9: 715.91 10/20/2017 Pain in right shoulder ICD-10: M25.511 ICD-9: 719.41 10/20/2017 Chronic atrial fibrillation ICD-10: I48.2 ICD-9: 427.31 09/15/2017 Hemarthrosis, left shoulder ICD-10: M25.012 ICD-9: 719.11 08/31/2017 Hemarthrosis, right shoulder ICD-10: M25.011 ICD-9: 719.11 08/05/2017 Essential (primary) hypertension ICD-10: I10 ICD-9: 401.9 08/05/2017 Chronic pain syndrome ICD-10: G89.4 ICD-9: 338.4 08/05/2017 Hypomagnesemia ICD-10: E83.42 ICD-9: 275.2 01/08/2017 [...] Visit Reason For Visit Effective Dates Notes rheumatoid arthritis 10/20/2017 rheumatoid arthritis 09/29/2017 rheumatoid [...] Observation Code Item Item Code Result Date Prealbumin 230702 PREALBUMIN 33 mg/dL 10/21/2017 Comp Metabolic Fir289 NA 134 mEq/L 10/20/2017 Comp Metabolic Fba291 K 3.7 mEq/L 10/20/2017 Comp Metabolic Nez258 CL 93 mEq/L 10/20/2017 Comp Metabolic Spy020 CO2 29.0 mEq/L 10/20/2017 Comp Metabolic Gar908 ANION GAP 16 10/20/2017 Comp Metabolic Dvu044 GLUCOSE 115 mg/dL 10/20/2017 Comp Metabolic Ced884 Creat 0.8 mg/dL 10/20/2017 Comp Metabolic Wdr912 eGFR 73 ml/min/1.73m2 10/20/2017 Comp Metabolic Tmi694 BUN 46 mg/dL 10/20/2017 Comp Metabolic Jvw677 B/C Ratio 57.5 Ratio 10/20/2017 Comp Metabolic Asy197 CALCIUM 8.7 mg/dL 10/20/2017 Comp Metabolic Uqc079 ALK PHOS 56 U/L 10/20/2017 Comp Metabolic Knb911 AST(SGOT) 19 U/L 10/20/2017 Comp Metabolic Two155 ALT(SGPT) 23 U/L 10/20/2017 Comp Metabolic Ges850 BILI T 0.6 mg/dL 10/20/2017 Comp Metabolic Ayw727 ALBUMIN 4.0 g/dL 10/20/2017 Comp Metabolic Exc307 TPRO 6.6 g/dL 10/20/2017 Comp Metabolic Mkv698 GLOB 2.7 g/dL 10/20/2017 Comp Metabolic Dnv688 A/G Ratio 1.5 Ratio 10/20/2017 Comp Metabolic Ejs850 Osmo 281 mOsmo 10/20/2017 Tsh Ord6 TSH [...] 18.4 % 10/20/2017 Cbc With Differential Ord2 [place]% 9.9 % 10/20/2017 Cbc With Differential Ord2 [...] 1.15 K/ul 10/20/2017 Cbc With Differential Ord2 [place] ABS# 0.6 K/ul 10/20/2017 Cbc With Differential Ord2 Eos ABS# 0.0 K/ul 10/20/2017 Cbc With Differential Ord2 Baso ABS# 0.0 K/ul 10/20/2017 Iron Ord72 Iron 75 ug/dl 10/20/2017 Luann Reflex Profile [id number] LUANN (BRYANNA) SCREEN NONE DETECTED 01/12/2017 Comp Metabolic Ltr492 NA 129 mEq/L 01/08/2017 Comp Metabolic Fpk168 K 3.9 mEq/L 01/08/2017 Comp Metabolic Jzo552 CL 94 mEq/L 01/08/2017 Comp Metabolic Mzc247 CO2 31.0 mEq/L 01/08/2017 Comp Metabolic Sds437 ANION GAP 8 01/08/2017 Comp Metabolic Wav959 GLUCOSE 103 mg/dL 01/08/2017 Comp Metabolic Pai190 Creat 0.9 mg/dL 01/08/2017 Comp Metabolic Byj617 eGFR 61 ml/min/1.73m2 01/08/2017 Comp Metabolic Msl075 BUN 29 mg/dL 01/08/2017 Comp Metabolic Uol284 B/C Ratio 30.9 Ratio 01/08/2017 Comp Metabolic Nxy529 CALCIUM 8.5 mg/dL 01/08/2017 Comp Metabolic Adi478 ALK PHOS 58 U/L 01/08/2017 Comp Metabolic Kst484 AST(SGOT) 17 U/L 01/08/2017 Comp Metabolic Hki234 ALT(SGPT) 10 U/L 01/08/2017 Comp Metabolic Jcl633 BILI T 0.4 mg/dL 01/08/2017 Comp Metabolic Azv115 ALBUMIN 3.0 g/dL 01/08/2017 Comp Metabolic Eli553 TPRO 5.5 g/dL 01/08/2017 Comp Metabolic Lcr860 GLOB 2.5 g/dL 01/08/2017 Comp Metabolic Zag668 A/G Ratio 1.2 Ratio 01/08/2017 Comp Metabolic Lsj777 Osmo 265 mOsmo 01/08/2017 Cbc With Differential [...] 102.2 fl 01/08/2017 Cbc With Differential Ord2 [place]% 12.2 % 01/08/2017 Cbc With Differential Ord2 [...] 1.62 K/ul 01/08/2017 Cbc With Differential Ord2 [place] ABS# 0.9 K/ul 01/08/2017 Cbc With Differential [...] 33.1 pg 11/10/2016 Cbc With Differential Ord2 [place]% 9.1 % 11/10/2016 Cbc With Differential Ord2 [...] 0.78 K/ul 11/10/2016 Cbc With Differential Ord2 [place] ABS# 0.5 K/ul 11/10/2016 Cbc With Differential [...] 30.3 pg 10/07/2016 Cbc With Differential Ord2 [place]% 11.8 % 10/07/2016 Cbc With Differential Ord2 [...] 1.54 K/ul 10/07/2016 Cbc With Differential Ord2 [place] ABS# 1.0 K/ul 10/07/2016 Cbc With Differential Ord2 Eos ABS# 0.1 K/ul 10/07/2016 Cbc With Differential Ord2 Baso ABS# 0.0 K/ul 10/07/2016 Tibc Ord40 Iron 13 ug/dl 08/26/2016 Tibc Ord40 UIBC 283 ug/dL 08/26/2016 Tibc Ord40 TIBC 296 ug/dL 08/26/2016 Tibc Ord40 Fe-%Sat 4.4 % 08/26/2016 Ferritin Ord22 FERRITIN 28.8 ng/mL 08/26/2016 Comp Metabolic Tnz423 NA 129 mEq/L 08/26/2016 Comp Metabolic Sca789 K 3.9 mEq/L 08/26/2016 Comp Metabolic Oto370 CL 93 mEq/L 08/26/2016 Comp Metabolic Afj791 CO2 30.0 mEq/L 08/26/2016 Comp Metabolic Inw979 ANION GAP 10 08/26/2016 Comp Metabolic Nct155 GLUCOSE 87 mg/dL 08/26/2016 Comp Metabolic Lge519 Creat 0.6 mg/dL 08/26/2016 Comp Metabolic Hvw765 eGFR 96 ml/min/1.73m2 08/26/2016 Comp Metabolic Xvh527 BUN 17 mg/dL 08/26/2016 Comp Metabolic Jwb672 B/C Ratio 27.0 Ratio 08/26/2016 Comp Metabolic Lfv014 CALCIUM 7.6 mg/dL 08/26/2016 Comp Metabolic Gfx060 ALK PHOS 72 U/L 08/26/2016 Comp Metabolic Zxu179 AST(SGOT) 20 U/L 08/26/2016 Comp Metabolic Ynn317 ALT(SGPT) 12 U/L 08/26/2016 Comp Metabolic Mpt076 BILI T 0.3 mg/dL 08/26/2016 Comp Metabolic Qsh251 ALBUMIN 2.7 g/dL 08/26/2016 Comp Metabolic Tjd932 TPRO 5.3 g/dL 08/26/2016 Comp Metabolic Yks192 GLOB 2.6 g/dL 08/26/2016 Comp Metabolic Arl552 A/G Ratio 1.1 Ratio 08/26/2016 Comp Metabolic Six845 Osmo 260 mOsmo 08/26/2016 Cbc With Differential [...] 88.7 fl 08/26/2016 Cbc With Differential Ord2 [place]% 9.6 % 08/26/2016 Cbc With Differential Ord2 [...] 1.83 K/ul 08/26/2016 Cbc With Differential Ord2 [place] ABS# 1.0 K/ul 08/26/2016 Cbc With Differential Ord2 Eos ABS# 0.1 K/ul 08/26/2016 Cbc With Differential Ord2 Baso ABS# 0.0 K/ul 08/26/2016 Magnesium Ord90 Mag 1.9 mg/dL 08/26/2016 Vitamin D 25 Oh Hxz1327 VITAMIN D, 25 HYDROXY 34.59 ng/mL Sed Rate Ord21 ESR 20 mm/hr 11/19/2015 Comp Metabolic Rjv368 NA 131 mEq/L 08/22/2015 Comp Metabolic Zln619 K 4.2 mEq/L 08/22/2015 Comp Metabolic Yba794 CL 98 mEq/L 08/22/2015 Comp Metabolic Tim848 CO2 27.0 mEq/L 08/22/2015 Comp Metabolic Bfy675 ANION GAP 10 08/22/2015 Comp Metabolic Nuy577 GLUCOSE 80 mg/dL 08/22/2015 Comp Metabolic Mjh670 Creat 0.5 mg/dL 08/22/2015 Comp Metabolic Wix323 eGFR 120 ml/min/1.73m2 08/22/2015 Comp Metabolic Kan100 BUN 13 mg/dL 08/22/2015 Comp Metabolic Cgk724 B/C Ratio 25.0 Ratio 08/22/2015 Comp Metabolic Eky535 CALCIUM 8.2 mg/dL 08/22/2015 Comp Metabolic Raj784 ALK PHOS 49 U/L 08/22/2015 Comp Metabolic Nqy930 AST(SGOT) 18 U/L 08/22/2015 Comp Metabolic Cpy014 ALT(SGPT) 11 U/L 08/22/2015 Comp Metabolic Zpd940 BILI T 0.5 mg/dL 08/22/2015 Comp Metabolic Yqq417 ALBUMIN 3.5 g/dL 08/22/2015 Comp Metabolic Huu012 TPRO 6.2 g/dL 08/22/2015 Comp Metabolic Kcq852 GLOB 2.7 g/dL 08/22/2015 Comp Metabolic Zay674 A/G Ratio 1.3 Ratio 08/22/2015 Comp Metabolic Wap762 Osmo 262 mOsmo 08/22/2015 Cbc With Differential [...] 21.4 % 08/22/2015 Cbc With Differential Ord2 [place]% 10.3 % 08/22/2015 Cbc With Differential Ord2 [...] 1.39 K/ul 08/22/2015 Cbc With Differential Ord2 [place] ABS# 0.7 K/ul 08/22/2015 Cbc With Differential Ord2 Eos ABS# 0.1 K/ul 08/22/2015 Cbc With Differential Ord2 Baso ABS# 0.0 K/ul 08/22/2015 Tsh Ord6 hTSH II 2.19 uIU/mL 08/22/2015 Vitamin D 25 Oh [id number] VITAMIN D, 25 HYDROXY 55.10 ng/mL Lipid [...] 1.5 Ratio 03/16/2015 Vitamin D 25 Oh [id number] VITAMIN D, 25 HYDROXY 28.94 ng/mL Cbc [...] 28.1 pg 03/16/2015 Cbc With Differential Ord2 [place]% 11.2 % 03/16/2015 Cbc With Differential Ord2 [...] 2.37 K/ul 03/16/2015 Cbc With Differential Ord2 [place] ABS# 0.8 K/ul 03/16/2015 Cbc With Differential Ord2 Eos ABS# 0.1 K/ul 03/16/2015 Cbc With Differential Ord2 Baso ABS# 0.0 K/ul 03/16/2015 Cbc With Differential Ord2 New Analyzer Notice Please note new ref ranges starting 03-14-2015 due to implemntation of new five part differential hematolgy analyzer. 03/16/2015 Comp Metabolic Lcv442 NA 131 mEq/L 03/16/2015 Comp Metabolic Ldn037 K 4.1 mEq/L 03/16/2015 Comp Metabolic Qvr582 CL 94 mEq/L 03/16/2015 Comp Metabolic Goi251 CO2 28.0 mEq/L 03/16/2015 Comp Metabolic Inb241 ANION GAP 13 03/16/2015 Comp Metabolic Erz486 GLUCOSE 96 mg/dL 03/16/2015 Comp Metabolic Hci684 Creat 0.7 mg/dL 03/16/2015 Comp Metabolic Kga650 eGFR 80 ml/min/1.73m2 03/16/2015 Comp Metabolic Qlz369 BUN 16 mg/dL 03/16/2015 Comp Metabolic Xgl204 B/C Ratio 21.6 Ratio 03/16/2015 Comp Metabolic Rzp604 CALCIUM 8.9 mg/dL 03/16/2015 Comp Metabolic Amm921 ALK PHOS 44 U/L 03/16/2015 Comp Metabolic Pug512 AST(SGOT) 22 U/L 03/16/2015 Comp Metabolic Tyr528 ALT(SGPT) 14 U/L 03/16/2015 Comp Metabolic Ezr709 BILI T 0.5 mg/dL 03/16/2015 Comp Metabolic Pmz679 ALBUMIN 3.4 g/dL 03/16/2015 Comp Metabolic Zvr084 TPRO 6.0 g/dL 03/16/2015 Comp Metabolic Jbr133 GLOB 2.6 g/dL 03/16/2015 Comp Metabolic Rwd719 A/G Ratio 1.3 Ratio 03/16/2015 Comp Metabolic Uwj421 Osmo 264 mOsmo 03/16/2015 Comp Metabolic Ucy153 NA 129 mEq/L 11/09/2014 Comp Metabolic Pbp271 K 4.2 mEq/L 11/09/2014 Comp Metabolic Hjo235 CL 96 mEq/L 11/09/2014 Comp Metabolic Zhr251 CO2 27.0 mEq/L 11/09/2014 Comp Metabolic Yzs415 ANION GAP 10 11/09/2014 Comp Metabolic Rka340 GLUCOSE 144 mg/dL 11/09/2014 Comp Metabolic Xyx189 Creat 0.8 mg/dL 11/09/2014 Comp Metabolic Tao593 eGFR 73 ml/min/1.73m2 11/09/2014 Comp Metabolic Tha948 BUN 22 mg/dL 11/09/2014 Comp Metabolic Fbf133 B/C Ratio 27.5 Ratio 11/09/2014 Comp Metabolic Ppx633 CALCIUM 8.6 mg/dL 11/09/2014 Comp Metabolic Ptm287 ALK PHOS 55 U/L 11/09/2014 Comp Metabolic Hne045 AST(SGOT) 27 U/L 11/09/2014 Comp Metabolic Wci047 ALT(SGPT) 18 U/L 11/09/2014 Comp Metabolic Jex579 BILI T 0.5 mg/dL 11/09/2014 Comp Metabolic Ykf213 ALBUMIN 3.0 g/dL 11/09/2014 Comp Metabolic Ssi283 TPRO 5.4 g/dL 11/09/2014 Comp Metabolic Yik597 GLOB 2.4 g/dL 11/09/2014 Comp Metabolic Ddc849 A/G Ratio 1.3 Ratio 11/09/2014 Comp Metabolic Kwj898 Osmo 265 mOsmo 11/09/2014 Magnesium Ord90 Mag [...] clubbing 2015 None Full Exam - General 1995 Cardiovascular extremities Edema present: pitting 2015 None [...] Procedures Procedure Codes Date DRAIN/INJECT JOINT/BURSA CPT-4: 51072 08/21/2017 DRAIN/INJECT JOINT/BURSA CPT-4: 45137 08/12/2017 TRIAMCINOLONE ACET INJ NOS CPT-4: J3301 08/12/2017 DRAIN/INJECT JOINT/BURSA CPT-4: 05806 08/05/2017 TRIAMCINOLONE ACET INJ NOS CPT-4: J3301 08/05/2017 DRAIN/INJECT JOINT/BURSA CPT-4: 44630 07/23/2017 DRAIN/INJECT JOINT/BURSA CPT-4: 18616 07/09/2017 TRIAMCINOLONE ACET INJ NOS CPT-4: J3301 07/09/2017 PRESCRIP TRANSMIT VIA ERX SY CPT-4: G8553 07/09/2017 DRAIN/INJECT JOINT/BURSA CPT-4: 39336 07/01/2017 TRIAMCINOLONE ACET INJ NOS CPT-4: J3301 07/01/2017 PRESCRIP TRANSMIT VIA ERX SY CPT-4: G8553 07/01/2017 DRAIN/INJECT JOINT/BURSA CPT-4: 13492 06/17/2017 DRAIN/INJECT JOINT/BURSA CPT-4: 47472 04/02/2017 TRIAMCINOLONE ACET INJ NOS CPT-4: J3301 04/02/2017 DRAIN/INJECT JOINT/BURSA CPT-4: 43452 02/06/2017 ADMIN INFLUENZA VIRUS VAC CPT-4: G0008 12/08/2016 FLU VACC PRSV FREE INC ANTIG CPT-4: 30091 12/08/2016 PRESCRIP TRANSMIT VIA ERX SY CPT-4: G8553 12/08/2016 PRESCRIP TRANSMIT VIA ERX SY CPT-4: G8553 11/17/2016 TRIAMCINOLONE ACET INJ NOS CPT-4: J3301 10/02/2016 TRIAMCINOLONE ACET INJ NOS CPT-4: J3301 09/12/2016 DRAIN/INJECT JOINT/BURSA CPT-4: 73197 09/08/2016 TRIAMCINOLONE ACET INJ NOS CPT-4: J3301 09/08/2016 PRESCRIP TRANSMIT VIA ERX SY CPT-4: G8553 08/26/2016 PRESCRIP TRANSMIT VIA ERX SY CPT-4: G8553 08/18/2016 ADMIN INFLUENZA VIRUS VAC CPT-4: G0008 11/19/2015 FLU VACC PRSV FREE INC ANTIG Formatting Model/CDA Sections, Assigned to/Luanne Elaine CPT-4: 21480Vdtrbio 11/19/2015 PRESCRIP TRANSMIT VIA ERX SY CPT-4: G8553 09/04/2015 PRESCRIP TRANSMIT VIA ERX SY CPT-4: G8553 2015 PRESCRIP TRANSMIT VIA ERX SY CPT-4: G8553 07/18/2015 PRESCRIP TRANSMIT VIA ERX SY CPT-4: G8553 07/02/2015 REMOVE IMPACTED EAR WAX UNI CPT-4: 11340 04/09/2015 PRESCRIP TRANSMIT VIA ERX SY CPT-4: G8553 02/08/2015 ADMIN INFLUENZA VIRUS VAC CPT-4: G0008 01/10/2015 FLU VACC PRSV FREE INC ANTIG Formatting Model/CDA Sections, Assigned to/Luanne Elaine CPT-4: 34173Uopesdr 01/10/2015 ADMIN PNEUMOCOCCAL VACCINE Formatting Model/CDA Sections, Assigned to SNOMED CT: 26822743 CPT-4: J3088Vyyryyh 12/11/2014 PNEUMOCOCCAL VACC [address]: 19086138 CPT-4: 80584 12/11/2014 Vital Signs Date Vital 10/20/2017 Blood Pressure 1: 120/62 Code : 8480-6 Heart Rate 1: 100 bpm Height: SpO2: 96% Weight: 09/29/2017 Blood Pressure 1: 124/68 Code : 8480-6 Heart Rate 1: 110 bpm Height: SpO2: 99% Weight: 09/15/2017 Blood Pressure 1: 122/68 Code : 8480-6 BMI: 24.7 Code : 48980-2 Heart Rate 1 : 100 bpm Height: 5'8" SpO2: 95% Weight: 160 lbs 08/31/2017 Blood Pressure 1: 128/78 Code : 8480-6 BMI: 23.6 Code : 54244-6 Heart Rate 1 : 102 bpm Height: 5'8" SpO2: 96% Weight: 153 lbs 08/21/2017 Blood Pressure 1: 138/78 Code : 8480-6 Heart Rate 1: 97 bpm SpO2: 95% Weight: 156 lbs 2 oz 08/12/2017 Blood Pressure 1: 138/74 Code : 8480-6 BMI: 25.0 Code : 48550-2 Heart Rate 1 : 94 bpm Height: 5'8" SpO2: 98% Weight: 162 lbs 08/05/2017 Blood Pressure 1: 126/78 Code : 8480-6 BMI: 25.8 Code : 87683-3 Heart Rate 1 : 74 bpm Height: 5'8" SpO2: 96% Weight: 167 lbs 07/23/2017 Blood Pressure 1: 106/64 Code : 8480-6 BMI: 25.3 Code : 37545-6 Heart Rate 1 : 81 bpm Height: 5'8" SpO2: 99% Weight: 163 lbs 14 oz 07/09/2017 Blood Pressure 1: 130/68 Code : 8480-6 Heart Rate 1: 82 bpm Height: 5'8" SpO2: 98% Weight: 07/01/2017 Blood Pressure 1: 124/76 Code : 8480-6 BMI: 26.5 Code : 47521-6 Heart Rate 1 : 99 bpm Height: 5'8" SpO2: 98% Weight: 172 lbs 06/24/2017 Blood Pressure 1: 118/70 Code : 8480-6 Heart Rate 1: 103 bpm Height: 5'8" SpO2: 98% Weight: 06/17/2017 Blood Pressure 1: 110/64 Code : 8480-6 BMI: 25.0 Code : 98866-4 Heart Rate 1 : 73 bpm Height: 5'8" Weight: 162 lbs 06/01/2017 Blood Pressure 1: 158/84 Code : 8480-6 BMI: 24.4 Code : 41142-4 Heart Rate 1 : 94 bpm Height: 5'8" SpO2: 95% Weight: 158 lbs 04/02/2017 Blood Pressure 1: 164/80 Code : 8480-6 BMI: 23.1 Code : 18383-5 Heart Rate 1 : 76 bpm Height: 5'8" SpO2: 94% Weight: 150 lbs 03/12/2017 Blood Pressure 1: 130/74 Code : 8480-6 BMI: 23.0 Code : 39908-9 Heart Rate 1 : 92 bpm Height: 5'8" SpO2: 94% Weight: 149 lbs 02/06/2017 Height: Weight: 01/08/2017 Blood Pressure 1: 136/76 Code : 8480-6 BMI: 21.4 Code : 10526-5 Heart Rate 1 : 85 bpm Height: 5'8" SpO2: 98% Weight: 138 lbs 8 oz 12/08/2016 Blood Pressure 1: 132/66 Code : 8480-6 BMI: 22.2 Code : 43204-9 Heart Rate 1 : 106 bpm Height: 5'8" SpO2: 97% Weight: 144 lbs 11/17/2016 Blood Pressure 1: 146/80 Code : 8480-6 BMI: 22.4 Code : 93636-0 Heart Rate 1 : 100 bpm Height: 5'8" SpO2: 98% Weight: 145 lbs 11/10/2016 Blood Pressure 1: 122/62 Code : 8480-6 BMI: 22.2 Code : 06438-7 Height: 5'8" Weight: 144 lbs 11/05/2016 Blood Pressure 1: 146/80 Code : 8480-6 BMI: 22.2 Code : 57905-3 Heart Rate 1 : 77 bpm Height: 5'8" SpO2: 99% Weight: 144 lbs 10/07/2016 Blood Pressure 1: 132/68 Code : 8480-6 BMI: 22.8 Code : 99237-5 Heart Rate 1 : 90 bpm Height: 5'8" SpO2: 97% Weight: 148 lbs 10/02/2016 Blood Pressure 1: 166/86 Code : 8480-6 BMI: 22.8 Code : 88821-2 Heart Rate 1 : 96 bpm Height: 5'8" SpO2: 96% Weight: 148 lbs 09/12/2016 Blood Pressure 1: 130/86 Code : 8480-6 Height: Weight: 09/08/2016 Blood Pressure 1: 132/74 Code : 8480-6 BMI: 22.4 Code : 61942-3 Heart Rate 1 : 93 bpm Height: 5'8" SpO2: 99% Weight: 145 lbs 08/26/2016 Blood Pressure 1: 132/78 Code : 8480-6 BMI: 23.9 Code : 17661-7 Heart Rate 1 : 80 bpm Height: 5'8" SpO2: 94% Weight: 155 lbs 08/18/2016 Blood Pressure 1: 130/70 Code : 8480-6 BMI: 23.6 Code : 30903-0 Heart Rate 1 : 100 bpm Height: 5'8" SpO2: 94% Weight: 153 lbs 07/30/2016 Blood Pressure 1: 144/84 Code : 8480-6 BMI: 22.4 Code : 06962-4 Heart Rate 1 : 86 bpm Height: 5'8" SpO2: 97% Weight: 145 lbs 07/14/2016 Blood Pressure 1: 122/74 Code : 8480-6 BMI: 22.5 Code : 07315-0 Heart Rate 1 : 87 bpm Height: 5'8" SpO2: 97% Weight: 146 lbs 07/04/2016 Blood Pressure 1: 128/78 Code : 8480-6 BMI: 22.5 Code : 48542-4 Heart Rate 1 : 98 bpm Height: 5'8" Weight: 146 lbs 06/26/2016 Blood Pressure 1: 122/68 Code : 8480-6 BMI: 22.5 Code : 98529-5 Heart Rate 1 : 102 bpm Height: 5'8" SpO2: 98% Weight: 146 lbs 05/28/2016 Blood Pressure 1: 122/68 Code : 8480-6 BMI: 22.4 Code : 99264-4 Heart Rate 1 : 89 bpm Height: 5'8" SpO2: 97% Weight: 145 lbs 03/18/2016 Blood Pressure 1: 132/66 Code : 8480-6 BMI: 22.8 Code : 48018-4 Heart Rate 1 : 96 bpm Height: 5'8" SpO2: 98% Weight: 148 lbs 01/29/2016 Blood Pressure 1: 122/66 Code : 8480-6 BMI: 22.2 Code : 12854-8 Heart Rate 1 : 90 bpm Height: 5'8" SpO2: 99% Weight: 144 lbs 01/01/2016 Blood Pressure 1: 148/82 Code : 8480-6 BMI: 22.5 Code : 10070-1 Heart Rate 1 : 82 bpm Height: 5'8" Weight: 146 lbs 11/19/2015 Blood Pressure 1: 140/74 Code : 8480-6 BMI: 23.7 Code : 46942-9 Heart Rate 1 : 79 bpm Height: 5'8" SpO2: 96% Weight: 153 lbs 8 oz 11/01/2015 Blood Pressure 1: 118/72 Code : 8480-6 Heart Rate 1: 90 bpm Height: 5'8" SpO2: 95% 09/04/2015 Blood Pressure 1: 136/72 Code : 8480-6 BMI: 23.1 Code : 93848-7 Heart Rate 1 : 97 bpm Height: 5'8" SpO2: 98% Weight: 149 lbs 8 oz 2015 Blood Pressure 1: 144/76 Code : 8480-6 BMI: 22.8 Code : 73289-6 Heart Rate 1 : 75 bpm Height: 5'8" SpO2: 97% Weight: 148 lbs 07/18/2015 Blood Pressure 1: 132/60 Code : 8480-6 BMI: 23.1 Code : 87919-7 Heart Rate 1 : 78 bpm Height: 5'8" Weight: 150 lbs 07/02/2015 Blood Pressure 1: 156/86 Code : 8480-6 BMI: 23.0 Code : 97022-3 Heart Rate 1 : 75 bpm Height: 5'8" SpO2: 99% Weight: 149 lbs 05/31/2015 Blood Pressure 1: 136/72 Code : 8480-6 BMI: 22.7 Code : 93293-2 Heart Rate 1 : 85 bpm Height: 5'8" SpO2: 97% Weight: 147 lbs 04/09/2015 Blood Pressure 1: 118/60 Code : 8480-6 BMI: 22.7 Code : 18419-2 Heart Rate 1 : 72 bpm Height: 5'8" SpO2: 95% Weight: 147 lbs 02/08/2015 Blood Pressure 1: 138/76 Code : 8480-6 BMI: 23.1 Code : 85863-5 Heart Rate 1 : 80 bpm Height: 5'8" SpO2: 98% Weight: 150 lbs 12/11/2014 Blood Pressure 1: 120/74 Code : 8480-6 BMI: 22.1 Code : 29063-6 Heart Rate 1 : 92 bpm Height: 5'8" SpO2: 96% Weight: 143 lbs 11/09/2014 Blood Pressure 1: 100/64 Code : 8480-6 BMI: 21.6 Code : 88392-5 Heart Rate 1 : 88 bpm Height: 5'8" Weight: 140 lbs 10/23/2014 Blood Pressure 1: 138/82 Code : 8480-6 BMI: 23.6 Code : 32703-6 Heart Rate 1 : 86 bpm Height: 5'8" Weight: 153 lbs 10/16/2014 Blood Pressure 1: 128/60 Code : 8480-6 BMI: 23.3 Code : 61185-4 Heart Rate 1 : 91 bpm Height: 5'8" SpO2: 99% Weight: 151 lbs 10/09/2014 Blood Pressure 1: 120/60 Code : 8480-6 BMI: 23.0 Code : 59608-8 Heart Rate 1 : 96 bpm Height: 5'8" SpO2: 97% Weight: 149 lbs 09/14/2014 Blood Pressure 1: 132/72 Code : 8480-6 BMI: 22.1 Code : 43123-0 Heart Rate 1 : 84 bpm Height: 5'8" SpO2: 97% Weight: 143 lbs 08/11/2014 Blood Pressure 1: 134/74 Code : 8480-6 BMI: 24.1 Code : 23317-4 Heart Rate 1 : 88 bpm Height: 5'8" Weight: 156 lbs 07/12/2014 Blood Pressure 1: 122/62 Code : 8480-6 BMI: 22.7 Code : 51275-7 Heart Rate 1 : 76 bpm Height: 5'8" Weight: 147 lbs Functional Status No Functional Status data History of Present Illness Symptom Name Status Result Effective Date Notes rheumatoid arthritis Frequency of Episodes daily 10/20/2017 [...] Dr. Blanc[place] in [place] and Neurosurgeon in [place] in the past neck pain Significant Medical Conditions spinal stenosis 07/12/2014 has osteoarthritis Advance Directives No Advance Directive data Encounters Encounter Performer Location Codes Date ([id number]) [id number] EST. PATIENT, LEVEL IV Diagnosis: Essential (primary) [...] R60.0] [facility] CPT- 4: 74381 10/20/2017 ([id number]) 70917 EST. PATIENT, LEVEL IV Diagnosis: Essential (primary) [...] Araceli Silva MD, [facility] CPT-4: 87109 09/29/2017 ([id number]) 54044 EST. 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 PATIENT, LEVEL III Diagnosis: Localized edema[ICD10: R60.0] Araceli Silva MD, [facility] CPT- 4: 55352 07/23/2017 ([id number]) 76605 EST. 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 PATIENT, LEVEL III Diagnosis: Chronic pain syndrome[ICD10: G89.4] Diagnosis: Rheumatoid arthritis without rheumatoid factor, left shoulder[ICD10: M06.012] Diagnosis: Hemarthrosis, left shoulder[ICD10: M25.012] Diagnosis: Lymphedema, not elsewhere classified[ICD10: I89.0] Araceli Silva MD, [facility] CPT-4: 24659 07/01/2017 ([id number]) 63695 EST. PATIENT, LEVEL III Diagnosis: Chronic pain syndrome[ICD10: G89.4] Araceli Silva MD, [facility] CPT-4: 01457 06/24/2017 ([id number]) 05632 EST. PATIENT, LEVEL IV Diagnosis: Rheumatoid arthritis without rheumatoid factor, right shoulder[ICD10 : M06.011] Diagnosis: Rheumatoid arthritis without rheumatoid factor, left shoulder[ICD10: M06.012] Diagnosis: Pain in right shoulder[ICD10: M25.511] Diagnosis: Pain in left shoulder[ICD10: M25.512] Diagnosis: Chronic atrial fibrillation[ICD10: I48.2] Araceli Silva MD, [facility] CPT-4: 10817 06/17/2017 [id number] EST. PATIENT, LEVEL III Diagnosis: Pain in left shoulder[ICD10: M25.512] Diagnosis: Hemarthrosis, right shoulder[ICD10: M25.011] Diagnosis: Hemarthrosis, left shoulder[ICD10: M25.012] Maricel Silva MD, [facility] CPT-4: 09244 06/01/2017 ([id number]) 93339 EST. PATIENT, LEVEL II Diagnosis: Pain in right shoulder[ICD10: M25.511] Diagnosis: Hemarthrosis, right shoulder[ICD10: M25.011] Araceli Silva MD, [facility] CPT-4: 62497 04/02/2017 ([id number]) 25479 EST. PATIENT, LEVEL IV Diagnosis: Chronic pain syndrome[ICD10: G89.4] Diagnosis: Rheumatoid arthritis without rheumatoid factor, right shoulder[ICD10 : M06.011] Diagnosis: Rheumatoid arthritis without rheumatoid factor, left shoulder[ICD10: M06.012] Araceli Silva MD, [facility] CPT-4: 09842 2017 ([id number]) 13372 EST. PATIENT, LEVEL IV Diagnosis: Primary osteoarthritis, right shoulder[ICD10: M19.011] Diagnosis: Chronic pain syndrome[ICD10: G89.4] Diagnosis: Essential (primary) hypertension[ICD10: I10] Diagnosis: Hypomagnesemia[ICD10: E83.42] Araceli Silva MD, [facility] CPT- 4: 98046 01/08/2017 ([id number]) 85411 EST. PATIENT, LEVEL IV Diagnosis: Encounter for immunization[ICD10: Z23] Diagnosis: Chronic pain syndrome[ICD10: G89.4] Diagnosis: Essential (primary) hypertension[ICD10: I10] Araceli Silva MD, [facility] CPT-4: 82021 12/08/2016 ([id number]) 83900 EST. PATIENT, LEVEL III Diagnosis: Urge incontinence[ICD10: N39.41] Diagnosis: Chronic pain syndrome[ICD10: G89.4] Diagnosis: Lymphedema, not elsewhere classified[ICD10: I89.0] Araceli Silva MD, [facility] CPT-4: 37421 11/17/2016 75085 EST. 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 PATIENT, LEVEL IV Diagnosis: Essential (primary) hypertension[ICD10: I10] Diagnosis: Other chronic pain[ICD10: G89.29] Diagnosis: Localized edema[ICD10: R60.0] Diagnosis: Urge incontinence[ICD10: N39.41] Araceli Silva MD, [facility] CPT-4: 54305 11/05/2016 ([id number]) 46591 EST. 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 PATIENT, LEVEL III Diagnosis: Hemarthrosis, right shoulder[ICD10: M25.011] Diagnosis: Pain in right shoulder[ICD10: M25.511] Ila Silva MD, [facility] CPT-4: 72729 10/02/2016 78090 EST. PATIENT, LEVEL II Diagnosis: Low back pain[ICD10: M54.5] Diagnosis: Sacroiliitis, not elsewhere classified[ICD10: M46.1] Ila Silva MD, [facility] CPT-4: 31785 09/12/2016 ([id number]) 38831 EST. PATIENT, LEVEL III Diagnosis: Hemarthrosis, right shoulder[ICD10: M25.011] Diagnosis: Other chronic pain[ICD10: G89.29] Araceli Silva MD, [facility] CPT-4: 28495 09/08/2016 ([id number]) 04025 EST. PATIENT, LEVEL IV Diagnosis: Other iron deficiency anemias[ICD10: D50.8] Diagnosis: Vitamin D deficiency, unspecified[ICD10: E55.9] Diagnosis: Hypomagnesemia[ICD10: E83.42] Araceli Silva MD, [facility] CPT- 4: 72114 08/26/2016 ([id number]) 00260 EST. PATIENT, LEVEL III Diagnosis: Localized edema[ICD10: R60.0] Araceli Silva MD [facility] CPT- 4: 09287 08/18/2016 ([id number]) 84219 EST. 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 PATIENT, LEVEL IV Diagnosis: Pain in left shoulder[ICD10: M25.512] Diagnosis: Nocturia[ICD10: R35.1] Maricel Silva MD, [facility] CPT-4: 75235 07/14/2016 [id number] EST. PATIENT, LEVEL III Diagnosis: Pain in left shoulder[ICD10: M25.512] Maricel Silva MD [facility] CPT-4: 22884 07/04/2016 ([id number]) 97581 EST. 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 PATIENT, LEVEL II Diagnosis: Insect bite (nonvenomous) of right upper arm, initial encounter[ICD10 : S40.861A] Ila Silva MD, [facility] CPT-4: 75962 11/01/2015 ([id number]) 38011 EST. 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 PATIENT, LEVEL III Diagnosis: Contusion of left upper arm, subsequent encounter[ICD10: S40.022D] Araceli Silva MD, [facility] CPT-4: 23268 2015 85048 EST. PATIENT, LEVEL III Diagnosis: Cellulitis of left upper limb[ICD10: L03.114] Maricel Silva MD, [facility] CPT-4: 21244 07/18/2015 ([id number]) 71978 EST. 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 PATIENT, LEVEL IV Diagnosis: Essential (primary) hypertension[ICD10: I10] Diagnosis: Vitamin D deficiency, unspecified[ICD10: E55.9] Diagnosis: Mixed hyperlipidemia[ICD10: E78.2] Diagnosis: Age-related osteoporosis with current pathological fracture, unspecified site, sequela[ICD10: M80.00XS] Araceli Silva MD, [facility] CPT- 4: 27686 02/08/2015 ([id number]) 60374 EST. 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 PATIENT, LEVEL III Diagnosis: EDEMA[ICD9: 782.3] Diagnosis: ESSENTIAL HYPERTENSION[ICD9: 401.9] Araceli Silva MD, [facility] CPT-4: 36741 11/09/2014 ([id number]) 13194 EST. PATIENT, LEVEL III Diagnosis: Leg pain[ICD9: 729.5] Diagnosis: Ulcer of toe[ICD9: 707.15] Araceli Silva MD [facility] CPT- 4: 43085 10/23/2014 ([id number]) 49425 EST. PATIENT, LEVEL III Diagnosis: Ulcer of toe[ICD9: 707.15] Araceli Silva MD [facility] CPT- 4: 83953 10/16/2014 [id number] EST. PATIENT, LEVEL II Diagnosis: Ulcer of toe[ICD9: 707.15] Ila Silva MD, [facility] CPT-4: 39725 10/09/2014 ([id number]) 73403 EST. PATIENT, LEVEL III Diagnosis: EDEMA[ICD9: 782.3] Araceli Silva MD [facility] CPT-4: 12594 09/14/2014 ([id number]) 15787 EST. PATIENT, LEVEL IV Diagnosis: EDEMA[ICD9: 782.3] Diagnosis: ESSENTIAL HYPERTENSION[ICD9: 401.9] Araceli Silva MD, [facility] CPT-4: 84642 08/11/2014 ([id number]) OFFICE VISIT, NEW - LEVEL 4 Diagnosis: HYPERLIPIDEMIA[ICD9: 272.4] Diagnosis: VITAMIN D DEFICIENCY[ICD9: 268.9] Diagnosis: Osteoporosis[ICD9: 733.00] Diagnosis: Esophageal reflux[ICD9: 530.81] Diagnosis: Chronic pain[ICD9: 338.29] Araceli Silva MD, [facility] CPT- 4: 72037 07/12/2014 Plan of Care Planned Activity Notes Codes Status Date Visit Plan: Lymphedema of upper and lower [...] this time. 10/20/2017 Appointment: Araceli Silva WPtel: [address] [place], [place] [address] (30 min) Complex 10/20/2017 Patient Education: Patient [...] today. 09/29/2017 Appointment: [phone] [place] (15 min) Moderate 09/29/2017 Patient Education: [...] Summary Completed 08/21/2017 Appointment: Araceli Silva WPtel: [facility] [place] (15 min) Moderate 08/20/2017 Visit Plan: Hemarthrosis shoulders - 250mL from left shoulder and 100mL from right shoulder with 1ml kenalog injected into right and left shoulders - Left and right shoulder pain and swelling, swelling into arms and left breast -pt to continue with use of compression sleeves. [id number] sep 2018 bristol 2ml kenalog 08/12/2017 Appointment: [facility] Silva [phone] [place] (15 min) Moderate 08/12/2017 Patient Education: [...] edema. 08/05/2017 Appointment: Araceli Silva WPtel: [phone] [facility] [place] (15 min) Moderate 08/05/2017 Patient Education: [...] edema. 07/23/2017 Appointment: [facility] Silva [phone] [place] (15 min) Moderate 07/23/2017 Patient Education: [...] monitor symptoms. 07/09/2017 Appointment: Araceli Silva WPtel: [facility] (15 min) Moderate 07/09/2017 Patient Education: Patient Medication Summary Completed 07/09/2017 Referral: [facility] WPtel: Referral Initiated 07/08/2017 Visit [...] monitor symptoms. 07/01/2017 Appointment: Araceli Silva WPtel: [facility]5 [facility] [place] (15 min) Moderate 07/01/2017 Patient Education: Patient Medication Summary Completed 07/01/2017 Visit Plan: Chronic Pain Syndrome - pt has chronic pain - has been maintained on current medications, has not sought out other medications , only uses PRN pain medications as directed, and understands the consequences of over-medication. 06/24/2017 Appointment: Araceli Silva WPtel: [facility]0 [facility] [place] (15 min) Moderate 06/24/2017 Patient Education: [...] peripheral edema. 06/17/2017 Appointment: Araceli Silva WPtel: [phone] [facility] [place] (30 min) Complex 06/17/2017 Patient Education: Patient Medication Summary Completed 06/17/2017 Appointment: Araceli Silva WPtel: [phone] [facility] [place] (15 min) Moderate 06/08/2017 Care Plan: Referral Order SNOMED-CT : 723056147 Pending 06/02/2017 Visit Plan: Left and right [...] peripheral edema. 06/01/2017 App[facility]ment: [phone] [place] ([facility] Complex 06/01/2017 Patient [...] from shoulder 04/02/2017 Appointment: [facility] Silva [facility]el: [phone] [place] (15 min) Moderate 04/02/2017 Patient Education: [...] upset. 03/12/2017 Appointment: [facility] Silva [phone] (15 min) Moderate 03/12/2017 Patient Education: Patient [...] check LUANN. 01/08/2017 Appointment: [facility] Silva [facility]el: [phone] [place] (15 min) Moderate 01/08/2017 Patient Education: [...] with Remicaide. 12/08/2016 Appointment: Araceli Silva WPtel: [phone] [facility] (15 min) Moderate 12/08/2016 Patient Education: Patient [...] now 11/17/2016 Appointment: Araceli Silva WPtel: [phone] [facility] (15 min) Moderate 11/17/2016 Patient Education: Patient [...] over-medication. 11/10/2016 Appointment: Maricel Gee WPtel: [phone] [facility] (30 min) Complex 11/10/2016 Patient Education: Patient [...] immunosuppression. 11/05/2016 Appointment: Araceli Silva WPtel: [phone] [facility] [place] (15 min) Moderate 11/05/2016 Patient Education: [...] cbc today. 10/07/2016 Appointment: Araceli Silva WPtel: [facility]5 [facility] [place] (15 min) Moderate 10/07/2016 Patient Education: Patient Medication Summary Completed 10/07/2016 Care Plan: Referral Order SNOMED-CT : [id number] Pending 10/07/2016 Care Plan: Referral Order SNOMED-CT : [id number] Pending 10/07/2016 Visit Plan: Hemarthrosis -right shoulder-only able to drain 5ml of bloody drainage-unable to give oral steroids due to recent GI bleed -will give kenalog injection today in the office-discussed getting OSMO patch 10/02/2016 Appointment: Ila Kennedy WPtel: [facility]5 [phone] [place] (30 min) Complex 10/02/2016 Patient Education: Patient Medication Summary Completed 10/02/2016 Appointment: [facility] Silva [facility]Ptel: [phone] [place] (15 min) Moderate 09/23/2016 Appointment: Araceli Silva WPtel: [address] [place], [place] [id number] (15 min) Moderate 09/17/2016 Visit Plan: Sacroiliitis - back exercises discussed with the patient, pt to continue with anti-inflammatories. Pt is to call if the symptoms do not improve or if they worsen. Kenalog injection today in the office. 09/12/2016 Appointment: Ila Kennedy WPtel: [facility]2 [facility] (15 min) Moderate 09/12/2016 Patient Education: Patient [...] Injection of kenalog 1mL - 40mg - [employer] - lot #[id number] , expires oct 2017 Chronic Pain Syndrome - pt has chronic pain - has been maintained on current medications, has not sought out other medications, only uses PRN pain medications as directed, and understands the consequences of over-medication. 09/08/2016 Appointment: Araceli Silva WPtel: [address] [place], [place] [phone] (15 min) Moderate 09/08/2016 Patient Education: Patient [...] magnesium level 08/26/2016 Appointment: Araceli Silva WPtel: [facility]3 [facility] (15 min) Moderate 08/26/2016 Patient Education: Patient [...] Summary Completed 08/18/2016 Appointment: Araceli Silva WPtel: [phone] [facility] (15 min) Moderate 08/13/2016 Appointment: Araceli Silva WPtel: [phone] [facility] (15 min) Moderate 08/06/2016 Visit Plan: Chronic [...] the daytime. 07/30/2016 Appointment: Araceli Silva WPtel: [phone] [facility] (15 min) Moderate 07/30/2016 Patient Education: Patient Medication Summary Completed 07/30/2016 Visit Plan: Left shoulder pain - improving - pt is to notify clinic if symptoms do not improve, if they worsen, or with any questions or concerns. Nocturia - will give samples, pt is to notify clinic if symptoms do not improve. 07/14/2016 Appointment: Maricel Gee WPtel: [phone] [facility] (30 min) Complex 07/14/2016 Patient Education: Patient [...] dyspnea. 07/04/2016 Appointment: [facility]el[phone] ([facility] min) Complex 07/04/2016 Patient Education: [...] medication. 06/26/2016 Appointment: Araceli Silva WPtel: [phone] [facility] (15 min) Moderate 06/26/2016 Patient Education: Patient [...] of over-medication. 05/28/2016 Appointment: Araceli Silva WPtel: [facility] [place] (15 min) Moderate 05/28/2016 Patient Education: Patient Medication Summary Completed 05/28/2016 Patient Education: Hypertension Completed 05/28/2016 Appointment: Araceli Silva WPtel: [facility]5 [facility] [place] (15 min) Moderate 05/12/2016 Appointment: Araceli Silva WPtel: [facility]5 [facility] [place] (15 min) Moderate 04/15/2016 Appointment: Araceli Silva WPtel: [phone] [facility] (30 min) Complex 03/25/2016 Visit Plan: Hypertension [...] premarin. 03/18/2016 Appointment: Araceli Silva WPtel: [phone] [facility] (30 min) Complex 03/18/2016 Patient Education: Patient Medication Summary Completed 03/18/2016 Appointment: Araceli Silva WPtel: [facility] [place] (15 min) Moderate 02/19/2016 Visit Plan: Hypertension [...] of over-medication. 01/29/2016 Appointment: Araceli Silva WPtel: [facility] [place] (15 min) Moderate 01/29/2016 Patient Education: Patient Medication Summary Completed 01/29/2016 Visit Plan: Discussed MRI of the neck - pt is interested in doing this - however, not prior to changing her medication first to see if this helps her pain 01/01/2016 Appointment: Araceil Silav WPtel: [facility]8 [facility] [place] (15 min) Moderate 01/01/2016 Patient Education: Patient Medication Summary Completed 01/01/2016 Patient Education: Hypertension Completed 01/01/2016 Appointment: Araceli Silva WPtel: [phone] [facility] (15 min) Moderate 12/03/2015 Visit Plan: Chronic [...] or nonhealing. 11/01/2015 Appointment: Ila Kennedy WPtel: [facility] [place] (15 min) Moderate 11/01/2015 Patient Education: Patient Medication Summary Completed 11/01/2015 Visit Plan: Chronic Pain Syndrome - pt has chronic pain - has been maintained on current medications, has not sought out other medications , only uses PRN pain medications as directed, and understands the consequences of over-medication. Muscle spasms - recommended muscle rub. 09/04/2015 Appointment: Araceli Silva [facility]Ptel: [phone] [place] (15 min) Moderate 09/04/2015 Patient Education: Patient Medication Summary Completed 09/04/2015 Visit Plan: Ecchymosis/hematoma - improving - discussed natural progression of hematomas - watchful waiting. 2015 Appointment: Araceli Silva WPtel: [phone] [facility] (15 min) Moderate 2015 Patient Education: Patient Medication Summary Completed 2015 Visit Plan: Cellulitis - continue with oral antibiotics as previously directed, return to clinic as previously directed, call for acute change in symptoms, worsening redness, warmth, discharge. 07/18/2015 Appointment: Ila Kennedy WPtel: [phone] [phone] (30 min) Complex 07/18/2015 Patient Education: Patient [...] center/surgery center. 07/02/2015 Appointment: Araceli Silva WPtel: [phone] [facility] (15 min) Moderate 07/02/2015 Patient Education: Patient [...] with ambulation. 04/09/2015 Appointment: Araceli Silva WPtel: [address] [place], [place] [address] (15 min) Moderate 04/09/2015 Patient Education: Patient [...] d supplementation. 02/08/2015 Appointment: Araceli Silva WPtel: [phone] [facility] (15 min) Moderate 02/08/2015 Patient Education: Patient [...] the evening. 12/11/2014 Appointment: [facility]Ptel: [phone] (15 min) Moderate 12/11/2014 Patient Education: Patient [...] - improved. 11/09/2014 Appointment: Araceli Silva WPtel: [facility]5 [facility] (15 min) Moderate 11/09/2014 Patient Education: Patient Medication Summary Completed 11/09/2014 Patient Education: Hypertension Completed 11/09/2014 Visit Plan: Leg pain/cellulitis of leg - start on the doxycycline twice daily - take this x 2 weeks, if the symptoms in your leg/ thigh are not completely resolved, there is a refill that is available. start on a probiotic one pill daily (Solutionreach or Curvo) this will help prevent the development of a bad type of diarrhea that can occur when taking antibiotics. Ulcer of toe - improving. 10/23/2014 Appointment: Araceli Silva WPtel: [facility]5 [facility] (15 min) Moderate 10/23/2014 Patient Education: Patient Medication Summary Completed 10/23/2014 Visit Plan: Ulcer - keep lesion covered, antibiotic ointment to be used, monitor - call if redness increases or starts streaking up the foot. 10/16/2014 Appointment: Araceli Silva WPtel: [facility]5 [facility] (15 min) Moderate 10/16/2014 Patient Education: Patient [...] peripheral edema. 09/14/2014 Appointment: Araceli Silva WPtel: [phone] [facility] Follow up 09/14/2014 Patient Education: Patient Medication [...] over- medication. 07/12/2014 Appointment: Araceli Silva WPtel: [phone] [facility] [place] (S) New Patient 07/12/2014 Patient Education: Patient Medication Summary Completed 07/12/2014 Patient Education: Hypertension Completed 07/12/2014 Referral: Dr Virgen Referral Completed Referral: External, Ordering Provider Referral Completed Referral: [facility] WPtel: Referral Initiated Instructions Comment . Chronic Pain Syndrome - pt has [...] 6 small meals during the daytime. . Edema - pt has been advised [...] in blood pressure readings at home. . Hypertension - well controlled - continue [...] if not improving or repeat drainage needed. start on the doxycycline twice daily - take this x 2 weeks , if the symptoms in your leg/thigh are not completely resolved, there is a refill that is available. start on a probiotic one pill daily ([employer]reach or [employer]) this will help prevent the development of a bad type of diarrhea that can occur when taking antibiotics. . Leg pain/cellulitis of leg - start on the doxycycline twice daily - take this x 2 weeks, if the symptoms in your leg/thigh are not completely resolved, there is a refill that is available. start on a probiotic one pill daily (Solutionreach or [employer]vo) this will help prevent the development of [...] and 1/2 pill in the evening. . Left shoulder pain - ecchymosis of [...] use prn swelling. Check magnesium level . Hypertension - well controlled - continue [...] clinic if symptoms do not improve. . Hypertension - well controlled - continue [...] prednisone to help decrease stomach upset. . Hemarthrosis - pt was prepped and draped in sterile fashion - sterile 20 gauge needle used to access joint and drain via arthrocentesis - over 60mL of blood from joint. Dressed with pressure dressing and bandaid - advised to call if not improving or repeat drainage needed. Kenalog injected into joint after completion of removal of blood from shoulder . Hemarthrosis - drain right shoulder. Chronic Pain Syndrome - pt has chronic pain - has been maintained on current medications, has not sought out other medications, only uses PRN pain medications as directed, and understands the consequences of over-medication. . Hemarthrosis - drain right shoulder. Injection of kenalog 1mL - 40mg - [employer] - lot #[id number] , expires oct 2017 Chronic Pain Syndrome [...] - hold oxycontin 10mg dose for now . Hypertension - well controlled - continue [...] help to decrease the bladder spasms . Ecchymosis/hematoma - improving - discussed natural [...] assure normal liver response to medications. . Hemarthrosis shoulders - 250mL from left shoulder and 100mL from right shoulder with 1ml kenalog injected into right and left shoulders - Left and right shoulder pain and swelling, swelling into arms and left breast -pt to continue with use of compression sleeves. [id number] sep 2018 bristol 2ml kenalog . Hemarthrosis shoulders - 200mL from left [...] - stable on fentanyl - monitor symptoms. Keep toes clean and dry-call if sore [...] to continue with use of compression sleeves. we are going to check the iron levels, protein levels, renal and liver function as well as a cbc today. Once we get the results back, we will let Ese know about whether or not Vitgregory needs to have IV iron. We have [...] office. two old goats muscle rub from [employer] [facility]. . Chronic Pain Syndrome [...] the pt through the cancer center/surgery center. . Hypertension - well controlled - continue [...] Rash - on face, check LUANN. . Cellulitis - continue with oral antibiotics as previously directed, return to clinic as previously directed, call for acute change in symptoms, worsening redness, warmth, discharge.
[2018-01-25 17:37] LABS: BILIRUBIN,URINE NEGATIVE (NEGATIVE); CLARITY,URINE CLEAR; COLOR,URINE YELLOW; GLUCOSE, URINE (UA) NEGATIVE (NEGATIVE); KETONES,URINE NEGATIVE (NEGATIVE); LEUKOCYTE ESTERASE ,URINE 2+ (NEGATIVE); NITRITE,URINE NEGATIVE (NEGATIVE); PH,URINE 7 (5-9); PROTEIN,URINE NEGATIVE (NEGATIVE); UROBILINOGEN,URINE NORMAL (NORMAL)
--- OUTSIDE RECORDS SUMMARY | 2018-01-25 17:39 | XMS REPORT | CCD ---
Author Author [facility] Organization [facility] Address [address] [place] [address] Phone Care Team Providers Care Assembly Operator Name Role Phone PP Unavailable CCM Unavailable Summary Purpose Interface Exchange Insurance Providers Payer name Policy type / Coverage type Covered libertarian ID Effective Begin Date Effective End Date [employer] Medicare Part B [id number] 2017 Unknown AETNA Medicare Part B [id number] Unknown Family history Father Diagnosis Age At [...] Unknown Retired 07/12/[address]: 9199311 Quit over 10 years ago 1967 07/12/2014 [...] Start Date Stop Date Status Fill Instructions potassium chloride ER 10 mEq capsule,extended release RxNorm: 829207 TAKE 1 CAPSULE BY MOUTH TWICE DAILY WHEN TAKING LASIX (FUROSEMIDE) 10/09/2017 No Stop Date Active fentanyl 25 mcg/hr transdermal patch RxNorm: 489862 1 Patch TD Q72H use with 100mcg patch for a total of 125mcg daily 10/01/2017 10/30/2017 Active fentanyl 100 mcg/hr transdermal patch RxNorm: 369259 1 Patch TD Q72H use with 25mcg/hr patch 10/01/2017 10/30/2017 Active potassium chloride ER 10 mEq tablet,extended release(part/ cryst) RxNorm: 9993505 1 Capsule(s) PO BID when taking lasix 09/22/2017 09/16/2018 Active oxycodone 30 mg tablet RxNorm: 9790216 1/2 Tablet(s) PO Q6 04/201710/29/2017 Active fentanyl 100 mcg/hr transdermal patch RxNorm: 933426 1 Patch TD Q72H use with 25mcg/hr patch 08/31/2017 09/29/2017 Inactive Kenalog 40 mg/mL suspension for injection RxNorm: 5377501 1 Milliliter(s) Inj 08/31/2017 08/31/2017 Inactive fentanyl 25 mcg/hr transdermal patch RxNorm: 053484 1 Patch TD Q72H use with 100mcg patch for a total of 125mcg daily 08/31/2017 09/29/2017 Inactive cyanocobalamin (vit B-12) 1,000 mcg/mL injection solution RxNorm: 904362 1 Milliliter(s) Inj monthly 08/21/201708/15 Active please provide her with syringe/needle for injection cyanocobalamin (vit B-12) 1,000 mcg/mL injection solution RxNorm: 458870 1 Milliliter(s) Inj monthly 08/21/201708/20 Inactive please provide her with syringe/needle for injection Kenalog 40 mg/mL suspension for injection RxNorm: 0632161 2 Milliliter(s) Inj 1mL in each shoulder 08/21/2017 08/21/2017 Inactive cyanocobalamin (vit B-12) 1,000 mcg/mL injection solution RxNorm: 037817 1 Milliliter(s) Inj monthly 08/21/201708/20 Inactive please provide her with syringe/needle for injection Kenalog 40 mg/mL suspension for injection RxNorm: 9806286 2 Milliliter(s) Inj UD 08/12/2017 08/12/2017 Inactive fentanyl 25 mcg/hr transdermal patch RxNorm: 476207 1 Patch TD Q72H use with 100mcg patch for a total of 125mcg daily 08/05/2017 08/30/2017 Inactive fentanyl 100 mcg/hr transdermal patch RxNorm: 326559 1 Patch TD Q72H use with 25mcg/hr patch 08/05/2017 08/30/2017 Inactive Kenalog 40 mg/mL suspension for injection RxNorm: 0104433 2 Milliliter(s) Inj 1mL per shoulder 08/05/2017 08/05/2017 Inactive clindamycin HCl 150 mg capsule RxNorm: 711307 1 Capsule(s) PO QID Dr Shultz prescribed 07/23/2017 07/29/2017 Inactive prednisone 5 mg tablet RxNorm: 438934 1 Tablet(s) PO daily 11/201707/03/2018 Active Lasix 20 mg tablet RxNorm: 194641 1 Tablet(s) PO BID 201710/28/2017 Active fentanyl 25 mcg/hr transdermal patch RxNorm: 813276 1 Patch TD Q72H use with 100mcg patch for a total of 125mcg daily 07/01/2017 07/30/2017 Inactive fentanyl 100 mcg/hr transdermal patch RxNorm: 588183 1 Patch TD Q72H use with 25mcg/hr patch 07/01/2017 07/30/2017 Inactive potassium chloride ER 10 mEq capsule,extended release RxNorm: 808436 1 Capsule(s) PO BID when taking lasix 07/01/20172017 Inactive oxycodone 30 mg tablet RxNorm: 4816576 1/2 Tablet(s) PO Q6 08/22/2017 Inactive fentanyl 100 mcg/hr transdermal patch RxNorm: 215608 1 Patch TD Q72H use with 25mcg/hr patch 05/07/2017 06/05/2017 Inactive fentanyl 25 mcg/hr transdermal patch RxNorm: 117990 1 Patch TD Q72H use with 100mcg patch for a total of 125mcg daily 05/07/2017 06/05/2017 Inactive fentanyl 100 mcg/hr transdermal patch RxNorm: 514728 1 Patch TD Q72H 04/08/2017 05/06/2017 Inactive fentanyl 25 mcg/hr transdermal patch RxNorm: 836942 1 Patch TD Q72H use with 100mcg patch for a total of 125mcg daily 04/08/2017 05/06/2017 Inactive Kenalog 40 mg/mL suspension for injection RxNorm: 9528119 1.5 Milliliter(s) Inj 04/02/2017 04/02/2017 Inactive fentanyl 100 mcg/hr transdermal patch RxNorm: 171101 1 Patch TD Q72H 03/12/2017 04/07/2017 Inactive fentanyl 25 mcg/hr transdermal patch RxNorm: 384552 1 Patch TD Q72H use with 100mcg patch for a total of 125mcg daily 03/12/2017 04/07/2017 Inactive oxycodone 30 mg tablet RxNorm: 2297979 1/2 Tablet(s) PO Q6 09/201704/07/2017 Inactive cyanocobalamin (vit B-12) 1,000 mcg/mL injection syringe RxNorm: 655030 1 Milliliter(s) Inj monthly 02/16/2017 No Stop Date Active please provide with supplys needed for injection fentanyl 100 mcg/hr transdermal patch RxNorm: 800452 1 Patch TD Q72H 02/06/2017 03/07/2017 Inactive Myrbetriq 50 mg tablet,extended release RxNorm: 7036393 1 Tablet(s) PO QPM 12/11/2016 07/22/2017 Inactive oxycodone 30 mg tablet RxNorm: 2293872 1/2 Tablet(s) PO Q6 10/201601/06/2017 Inactive naproxen 500 mg tablet RxNorm: 607159 1 Tablet(s) PO BID Take 1 tablet by mouth two times daily as needed 12/08/201607/08 Inactive - First Attempt Ref: [id number] Myrbetriq 50 mg tablet,extended release RxNorm: 2194215 1 Tablet(s) PO QPM 11/17/2016 12/10/2016 Inactive fentanyl 100 mcg/hr transdermal patch RxNorm: 933098 1 Patch TD Q72H 11/12/2016 12/11/2016 Inactive Vesicare 10 mg tablet RxNorm: 762373 1 Tablet(s) PO QPM 201611/18/2016 Inactive oxycodone 10 mg tablet RxNorm: 8943752 1-2 Tablet(s) PO Q4 PRN as needed to take between 30mg dose if needed for extra pain control 201612/07/2016 Inactive fentanyl 75 mcg/hr transdermal patch RxNorm: 431794 1 TD Q72H 10/22/2016 11/10/2016 Inactive oxycodone 10 mg tablet RxNorm: 8936393 1-2 Tablet(s) PO Q4 PRN as needed to take between 30mg dose if needed for extra pain control 201611/04/2016 Inactive Kenalog 40 mg/mL suspension for injection RxNorm: 0169131 1 Milliliter(s) Inj 10/02/2016 10/02/2016 Inactive Kenalog 40 mg/mL suspension for injection RxNorm: 6865811 1 Milliliter(s) Inj 09/12/2016 09/12/2016 Inactive cyclobenzaprine 5 mg tablet RxNorm: 242597 1 Tablet(s) PO Q8 as needed muscle spasms 09/11/2016 07/22/2017 Inactive prednisone 10 mg tablets in a dose pack RxNorm: 692573 1 Tablet(s) PO UD 09/09/2016 06/23/2017 Inactive potassium chloride ER 10 mEq capsule,extended release RxNorm: 516367 1 Capsule(s) PO BID as needed when taking lasix 08/26/2016 06/30/2017 Inactive Lasix 20 mg tablet RxNorm: 901172 1 Tablet(s) PO BID daily x 10 days then as needed edema 08/26/2016 12/23/2016 Inactive naproxen 500 mg tablet RxNorm: 038089 Take 1 tablet by mouth two times daily as needed 08/18/2016 11/15/2016 Inactive - First Attempt Ref: [id number] Lasix 20 mg tablet RxNorm: 695012 1 Tablet(s) PO QAM daily x 10 days then as needed edema 08/18/2016 08/25/2016 Inactive Vesicare 5 mg tablet RxNorm: 066123 1 Tablet(s) PO QPM 201611/04/2016 Inactive potassium chloride ER 10 mEq capsule,extended release RxNorm: 915165 1 Capsule(s) PO QAM as needed when taking lasix 08/18/2016 08/25/2016 Inactive Myrbetriq 25 mg tablet,extended release RxNorm: 3509615 1 Tablet(s) PO QHS 07/14/2016 07/29/2016 Inactive pantoprazole 40 mg tablet,delayed release RxNorm: 400359 Take 1 tablet by mouth daily 06/30/2016 12/26/2016 Inactive - Ref: [id number] Embeda 20 mg-0.8 mg capsule, extend release, oral only RxNorm: 616997 1 Capsule(s ) PO daily 06/04/2016 06/03/2016 Inactive Embeda 20 mg-0.8 mg capsule, extend release, oral only RxNorm: 539051 1 Capsule(s ) PO daily 06/04/2016 07/01/2016 Inactive oxycodone 10 mg tablet RxNorm: 8390478 1 Tablet(s) PO QID as needed to take between 30mg dose if needed for extra pain control 201606/10/2016 Inactive oxycodone 30 mg tablet RxNorm: 7770312 1 Tablet(s) PO Q6 201611/04/2016 Inactive cyanocobalamin (vit B-12) 1,000 mcg/mL injection solution RxNorm: 544814 1 Milliliter(s) Inj monthly 02/22/201602/15 Inactive she also needs syringes/ needles for this solution QS oxycodone 30 mg tablet RxNorm: 5413692 1 Tablet(s) PO Q6 201503/19/2016 Inactive oxycodone 10 mg tablet RxNorm: 9639108 1 Tablet(s) PO QID as needed to take between 30mg dose if needed for extra pain control 201503/19/2016 Inactive oxycodone 10 mg tablet RxNorm: 9720168 1 Tablet(s) PO QID as needed to take between 30mg dose if needed for extra pain control 201502/18/2016 Inactive oxycodone 30 mg tablet RxNorm: 5904855 1 Tablet(s) PO Q6 201502/18/2016 Inactive pantoprazole 40 mg tablet,delayed release RxNorm: 644634 Take 1 tablet by mouth daily 01/22/2016 06/29/2016 Inactive - First Attempt Ref: [id number] oxycodone 30 mg tablet RxNorm: 2608484 1 Tablet(s) PO Q6 201501/28/2016 Inactive oxycodone 10 mg tablet RxNorm: 0867427 1 Tablet(s) PO QID as needed take between 20mg dose if needed for extra pain control 11/07/2015 12/06/2015 Inactive oxycodone 20 mg tablet RxNorm: 8668045 1 Tablet(s) PO Q6 as needed 11/07/2015 12/31/2015 Inactive doxycycline hyclate 100 mg tablet RxNorm: 600281 1 Tablet(s) PO BID 11/01/2015 11/10/2015 Inactive potassium chloride ER 10 mEq capsule,extended release RxNorm: 406329 1 Capsule(s) PO TIW as needed when taking lasix 09/04/2015 08/17/2016 Inactive Voltaren 1 % topical gel RxNorm: 229130 2 Gram(s) TOP QID 08/2909/03/2015 Inactive pa approved Voltaren 1 % topical gel RxNorm: 527333 2 Gram(s) TOP QID 08/0808/29/2015 Inactive naproxen 500 mg tablet RxNorm: 659988 1 Tablet(s) PO BID 201508/17/2016 Inactive naproxen 500 mg tablet RxNorm: 737998 1 Tablet(s) PO BID 201508/08/2015 Inactive doxycycline hyclate 100 mg tablet RxNorm: 027579 1 Tablet(s) PO BID do not take calcium/vitamin d while on antibiotic 07/18/2015 07/31/2015 Inactive Vitamin D2 50,000 unit capsule RxNorm: 452569 1 Capsule(s) PO QW 07/02/2015 11/18/2015 Inactive Premarin 0.3 mg tablet RxNorm: 867134 1 Tablet(s) PO daily 12/201505/09/2015 Inactive Premarin 0.3 mg tablet RxNorm: 981509 1 Tablet(s) PO daily 12/201503/17/2016 Inactive simvastatin 40 mg tablet RxNorm: 031363 1 Tablet(s) PO daily 03/17/2016 Inactive spironolactone 25 mg tablet RxNorm: 166424 TAKE ONE TABLET BY MOUTH DAILY 05/07/2015 05/27/2016 Inactive potassium chloride ER 10 mEq capsule,extended release RxNorm: 111211 1 Capsule(s) PO TIW as needed when taking lasix 04/17/2015 09/03/2015 Inactive alendronate 70 mg tablet RxNorm: 573508 1 Tablet(s) PO weekly QW 04/17/2015 07/01/2015 Inactive Vitamin D2 50,000 unit capsule RxNorm: 340799 1 Capsule(s) PO QW 03/30/2015 06/27/2015 Inactive Vitamin D2 50,000 unit capsule RxNorm: 947605 1 Capsule(s) PO QW 03/21/2015 03/29/2015 Inactive cyanocobalamin (vit B-12) 1,000 mcg/mL injection solution RxNorm: 342145 1 Milliliter(s) Inj monthly 03/19/201502/20 Inactive cyanocobalamin (vit B-12) 1,000 mcg/mL injection solution RxNorm: 180062 1 Milliliter(s) Inj monthly 03/16/201503/18 Inactive cyanocobalamin (vit B-12) 1,000 mcg/mL injection solution RxNorm: 355152 1 Milliliter(s) Inj monthly 03/16/201503/15 Inactive pantoprazole 40 mg tablet,delayed release RxNorm: 153906 1 Tablet(s) PO daily 03/05/2015 01/21/2016 Inactive Lasix 20 mg tablet RxNorm: 633933 1 Tablet(s) PO TIW as needed edema 02/08/2015 02/02/2016 Inactive oxycodone 10 mg tablet RxNorm: 2624903 1 Tablet(s) PO QID as needed take between 20mg dose if needed for extra pain control 11/09/2014 12/08/2014 Inactive oxycodone 20 mg tablet RxNorm: 2480266 1 Tablet(s) PO Q6 as needed 10/25/2014 11/06/2015 Inactive doxycycline hyclate 100 mg tablet RxNorm: 584646 1 Tablet(s) PO BID 10/23/2014 11/19/2014 Inactive Cipro 500 mg tablet RxNorm: 789931 1 Tablet(s) PO BID 201410/16/2014 Inactive Cipro 500 mg tablet RxNorm: 157302 1 Tablet(s) PO BID 201410/09/2014 Inactive oxycodone 20 mg tablet RxNorm: 2282823 1 Tablet(s) PO Q6 as needed 09/25/2014 10/24/2014 Inactive Lasix 20 mg tablet RxNorm: 173912 1 Tablet(s) PO TIW as needed edema 09/14/2014 01/11/2015 Inactive potassium chloride ER 10 mEq capsule,extended release RxNorm: 047882 1 Capsule(s) PO TIW as needed when taking lasix 09/14/2014 01/11/2015 Inactive doxycycline hyclate 100 mg tablet RxNorm: 848142 1 Tablet(s) PO BID 09/05/2014 09/14/2014 Inactive doxycycline hyclate 100 mg tablet RxNorm: 414008 1 Tablet(s) PO BID 09/05/2014 09/04/2014 Inactive oxycodone 20 mg tablet RxNorm: 8895929 1 Tablet(s) PO Q6 as needed 08/29/2014 09/24/2014 Inactive spironolactone 25 mg tablet RxNorm: 891269 1 Tablet(s) PO daily 08/11/2014 03/08/2015 Inactive oxycodone 20 mg tablet RxNorm: 7197061 1 Tablet(s) PO Q6 as needed 08/02/2014 08/28/2014 Inactive Vitamin D3 2,000 unit tablet RxNorm: 586041 1 Tablet(s) PO daily 07/14/2014 No Stop Date Active Vitamin D2 50,000 unit capsule RxNorm: 246701 1 Capsule(s) PO QW 07/14/2014 10/11/2014 Inactive Vitamin D2 50,000 unit capsule RxNorm: 036759 1 Capsule(s) PO QW 07/14/2014 07/13/2014 Inactive Prolia 60 mg/mL subcutaneous syringe RxNorm: 692105 Milliliter(s) SQ EVERY 6 MONTHS No Start Date Active Carafate 1 gram tablet RxNorm: 889663 1 Tablet(s) PO BID No Start Date Active Miralax oral RxNorm: 915101 oral No Start Date Active Stool Softener oral RxNorm: 34594 oral No Start Date Active Cardizem CD 360 mg capsule,extended release RxNorm: 704301 1 Capsule(s) PO daily No Start Date Active Calcium + Vitamin D oral RxNorm: 4018 oral No Start Date Active naproxen 500 mg tablet RxNorm: 066593 1 Tablet(s) PO BID No Start Date 08/05/2015 Inactive oxycodone 20 mg tablet RxNorm: 8944847 1 Tablet(s) PO Q6 as needed No Start Date 08/01/2014 Inactive aspirin 81 mg tablet RxNorm: 360409 1 Tablet(s) PO daily No Start Date 07/22/2017 Inactive simvastatin 40 mg tablet RxNorm: 885935 1 Tablet(s) PO daily No Start Date 05/09/2015 Inactive cyanocobalamin (vit B-12) 1,000 mcg/mL injection syringe RxNorm: 120439 1 Inj monthly No Start Date 02/15/2017 Inactive Reglan 10 mg tablet RxNorm: 731457 1 Tablet(s) PO as needed No Start Date 07/29/2016 Inactive alendronate 70 mg tablet RxNorm: 188711 1 Tablet(s) PO weekly No Start Date 04/16/2015 Inactive Protonix 40 mg tablet,delayed release RxNorm: 997821 1 Tablet(s) PO daily No Start Date 03/04/2015 Inactive cyclobenzaprine 5 mg tablet RxNorm: 625435 1 Tablet(s) PO Q8 as needed muscle spasms No Start Date 09/10/2016 Inactive Vitamin D3 1,000 unit capsule RxNorm: 911389 1 Capsule(s) PO daily No Start Date 07/13/2014 Inactive prednisone 10 mg tablets in a dose pack RxNorm: 492245 1 Tablet(s) PO UD No Start Date 09/08/2016 Inactive Medication Administered Medication Codes Instructions Start Date Status Kenalog 40 mg/mL suspension for injection RxNorm: 8724855 1Milliliter 08/31/2017 No longer Active Kenalog 40 mg/mL suspension for injection RxNorm: 3767852 2Milliliter 08/21/2017 No longer Active Kenalog 40 mg/mL suspension for injection RxNorm: 7094073 2MilliliterUD 08/12/2017 No longer Active Kenalog 40 mg/mL suspension for injection RxNorm: 4121045 2Milliliter 08/05/2017 No longer Active Kenalog 40 mg/mL suspension for injection RxNorm: 9777506 1.5Milliliter 04/02/2017 No longer Active Kenalog 40 mg/mL suspension for injection RxNorm: 0993645 1Milliliter 10/02/2016 No longer Active Kenalog 40 mg/mL suspension for injection RxNorm: 7030152 1Milliliter 09/12/2016 No longer Active Immunizations Vaccine [...] Observation Code Item Item Code Result Date Comp Metabolic Cxv674 NA 134 mEq/L 10/20/2017 Comp Metabolic Lmi377 K 3.7 mEq/L 10/20/2017 Comp Metabolic Qij876 CL 93 mEq/L 10/20/2017 Comp Metabolic Pwk303 CO2 29.0 mEq/L 10/20/2017 Comp Metabolic Pzp076 ANION GAP 16 10/20/2017 Comp Metabolic Edl566 GLUCOSE 115 mg/dL 10/20/2017 Comp Metabolic Tdc038 Creat 0.8 mg/dL 10/20/2017 Comp Metabolic Nim688 eGFR 73 ml/min/1.73m2 10/20/2017 Comp Metabolic War092 BUN 46 mg/dL 10/20/2017 Comp Metabolic Sbc698 B/C Ratio 57.5 Ratio 10/20/2017 Comp Metabolic Nry841 CALCIUM 8.7 mg/dL 10/20/2017 Comp Metabolic Itn239 ALK PHOS 56 U/L 10/20/2017 Comp Metabolic Vfu903 AST(SGOT) 19 U/L 10/20/2017 Comp Metabolic Vjq099 ALT(SGPT) 23 U/L 10/20/2017 Comp Metabolic Kft835 BILI T 0.6 mg/dL 10/20/2017 Comp Metabolic Ctf544 ALBUMIN 4.0 g/dL 10/20/2017 Comp Metabolic Xuj629 TPRO 6.6 g/dL 10/20/2017 Comp Metabolic Pgc060 GLOB 2.7 g/dL 10/20/2017 Comp Metabolic Fwk205 A/G Ratio 1.5 Ratio 10/20/2017 Comp Metabolic Pjy578 Osmo 281 mOsmo 10/20/2017 Tsh Ord6 TSH [...] 18.4 % 10/20/2017 Cbc With Differential Ord2 [place]% 9.9 % 10/20/2017 Cbc With Differential Ord2 [...] 1.15 K/ul 10/20/2017 Cbc With Differential Ord2 [place] ABS# 0.6 K/ul 10/20/2017 Cbc With Differential Ord2 Eos ABS# 0.0 K/ul 10/20/2017 Cbc With Differential Ord2 Baso ABS# 0.0 K/ul 10/20/2017 Iron Ord72 Iron 75 ug/dl 10/20/2017 Romie Reflex Profile [id number] ROMIE (BRYANNA) SCREEN NONE DETECTED 01/12/2017 Comp Metabolic Urv016 NA 129 mEq/L 01/08/2017 Comp Metabolic Wlo987 K 3.9 mEq/L 01/08/2017 Comp Metabolic Qbf288 CL 94 mEq/L 01/08/2017 Comp Metabolic Xzm562 CO2 31.0 mEq/L 01/08/2017 Comp Metabolic Agc828 ANION GAP 8 01/08/2017 Comp Metabolic Ory653 GLUCOSE 103 mg/dL 01/08/2017 Comp Metabolic Ekd311 Creat 0.9 mg/dL 01/08/2017 Comp Metabolic Fcn553 eGFR 61 ml/min/1.73m2 01/08/2017 Comp Metabolic Wod424 BUN 29 mg/dL 01/08/2017 Comp Metabolic Vwd014 B/C Ratio 30.9 Ratio 01/08/2017 Comp Metabolic Wkh153 CALCIUM 8.5 mg/dL 01/08/2017 Comp Metabolic Bam210 ALK PHOS 58 U/L 01/08/2017 Comp Metabolic Wjq629 AST(SGOT) 17 U/L 01/08/2017 Comp Metabolic Had577 ALT(SGPT) 10 U/L 01/08/2017 Comp Metabolic Imz890 BILI T 0.4 mg/dL 01/08/2017 Comp Metabolic Com221 ALBUMIN 3.0 g/dL 01/08/2017 Comp Metabolic Ynm846 TPRO 5.5 g/dL 01/08/2017 Comp Metabolic Nln695 GLOB 2.5 g/dL 01/08/2017 Comp Metabolic Str117 A/G Ratio 1.2 Ratio 01/08/2017 Comp Metabolic Ujs728 Osmo 265 mOsmo 01/08/2017 Cbc With Differential [...] 102.2 fl 01/08/2017 Cbc With Differential Ord2 [place]% 12.2 % 01/08/2017 Cbc With Differential Ord2 [...] 1.62 K/ul 01/08/2017 Cbc With Differential Ord2 [place] ABS# 0.9 K/ul 01/08/2017 Cbc With Differential [...] 33.1 pg 11/10/2016 Cbc With Differential Ord2 [place]% 9.1 % 11/10/2016 Cbc With Differential Ord2 [...] 0.78 K/ul 11/10/2016 Cbc With Differential Ord2 [place] ABS# 0.5 K/ul 11/10/2016 Cbc With Differential [...] 30.3 pg 10/07/2016 Cbc With Differential Ord2 [place]% 11.8 % 10/07/2016 Cbc With Differential Ord2 [...] 1.54 K/ul 10/07/2016 Cbc With Differential Ord2 [place] ABS# 1.0 K/ul 10/07/2016 Cbc With Differential Ord2 Eos ABS# 0.1 K/ul 10/07/2016 Cbc With Differential Ord2 Baso ABS# 0.0 K/ul 10/07/2016 Tibc Ord40 Iron 13 ug/dl 08/26/2016 Tibc Ord40 UIBC 283 ug/dL 08/26/2016 Tibc Ord40 TIBC 296 ug/dL 08/26/2016 Tibc Ord40 Fe-%Sat 4.4 % 08/26/2016 Ferritin Ord22 FERRITIN 28.8 ng/mL 08/26/2016 Comp Metabolic Mkg388 NA 129 mEq/L 08/26/2016 Comp Metabolic Xoe579 K 3.9 mEq/L 08/26/2016 Comp Metabolic Uts514 CL 93 mEq/L 08/26/2016 Comp Metabolic Rcy250 CO2 30.0 mEq/L 08/26/2016 Comp Metabolic Hwg004 ANION GAP 10 08/26/2016 Comp Metabolic Bri044 GLUCOSE 87 mg/dL 08/26/2016 Comp Metabolic Hca676 Creat 0.6 mg/dL 08/26/2016 Comp Metabolic Siw759 eGFR 96 ml/min/1.73m2 08/26/2016 Comp Metabolic Lsx093 BUN 17 mg/dL 08/26/2016 Comp Metabolic Zjc573 B/C Ratio 27.0 Ratio 08/26/2016 Comp Metabolic Vvm372 CALCIUM 7.6 mg/dL 08/26/2016 Comp Metabolic Kus555 ALK PHOS 72 U/L 08/26/2016 Comp Metabolic Lvx729 AST(SGOT) 20 U/L 08/26/2016 Comp Metabolic Jwi045 ALT(SGPT) 12 U/L 08/26/2016 Comp Metabolic Yly456 BILI T 0.3 mg/dL 08/26/2016 Comp Metabolic Fcf618 ALBUMIN 2.7 g/dL 08/26/2016 Comp Metabolic Icv943 TPRO 5.3 g/dL 08/26/2016 Comp Metabolic Mgw133 GLOB 2.6 g/dL 08/26/2016 Comp Metabolic Eos743 A/G Ratio 1.1 Ratio 08/26/2016 Comp Metabolic Bse398 Osmo 260 mOsmo 08/26/2016 Cbc With Differential [...] 88.7 fl 08/26/2016 Cbc With Differential Ord2 [place]% 9.6 % 08/26/2016 Cbc With Differential Ord2 [...] 1.83 K/ul 08/26/2016 Cbc With Differential Ord2 [place] ABS# 1.0 K/ul 08/26/2016 Cbc With Differential Ord2 Eos ABS# 0.1 K/ul 08/26/2016 Cbc With Differential Ord2 Baso ABS# 0.0 K/ul 08/26/2016 Magnesium Ord90 Mag 1.9 mg/dL 08/26/2016 Vitamin D 25 Oh [id number] VITAMIN D, 25 HYDROXY 34.59 ng/mL Sed Rate Ord21 ESR 20 mm/hr 11/19/2015 Comp Metabolic Nbg442 NA 131 mEq/L 08/22/2015 Comp Metabolic Vod685 K 4.2 mEq/L 08/22/2015 Comp Metabolic Gkz286 CL 98 mEq/L 08/22/2015 Comp Metabolic Ioq112 CO2 27.0 mEq/L 08/22/2015 Comp Metabolic Cis214 ANION GAP 10 08/22/2015 Comp Metabolic Tgs447 GLUCOSE 80 mg/dL 08/22/2015 Comp Metabolic Xzp812 Creat 0.5 mg/dL 08/22/2015 Comp Metabolic Dnk628 eGFR 120 ml/min/1.73m2 08/22/2015 Comp Metabolic Coq459 BUN 13 mg/dL 08/22/2015 Comp Metabolic Ywi250 B/C Ratio 25.0 Ratio 08/22/2015 Comp Metabolic Gxm352 CALCIUM 8.2 mg/dL 08/22/2015 Comp Metabolic Bhq465 ALK PHOS 49 U/L 08/22/2015 Comp Metabolic Ehu923 AST(SGOT) 18 U/L 08/22/2015 Comp Metabolic Pvb156 ALT(SGPT) 11 U/L 08/22/2015 Comp Metabolic Qrb893 BILI T 0.5 mg/dL 08/22/2015 Comp Metabolic Hsr475 ALBUMIN 3.5 g/dL 08/22/2015 Comp Metabolic Zne318 TPRO 6.2 g/dL 08/22/2015 Comp Metabolic Hxn505 GLOB 2.7 g/dL 08/22/2015 Comp Metabolic Xir234 A/G Ratio 1.3 Ratio 08/22/2015 Comp Metabolic Pmi056 Osmo 262 mOsmo 08/22/2015 Cbc With Differential [...] 21.4 % 08/22/2015 Cbc With Differential Ord2 [place]% 10.3 % 08/22/2015 Cbc With Differential Ord2 [...] 1.39 K/ul 08/22/2015 Cbc With Differential Ord2 [place] ABS# 0.7 K/ul 08/22/2015 Cbc With Differential Ord2 Eos ABS# 0.1 K/ul 08/22/2015 Cbc With Differential Ord2 Baso ABS# 0.0 K/ul 08/22/2015 Tsh Ord6 hTSH II 2.19 uIU/mL 08/22/2015 Vitamin D 25 Oh [id number] VITAMIN D, 25 HYDROXY 55.10 ng/mL Lipid [...] 1.5 Ratio 03/16/2015 Vitamin D 25 Oh Ymr6201 VITAMIN D, 25 HYDROXY 28.94 ng/mL Cbc [...] 28.1 pg 03/16/2015 Cbc With Differential Ord2 [place]% 11.2 % 03/16/2015 Cbc With Differential Ord2 [...] 2.37 K/ul 03/16/2015 Cbc With Differential Ord2 [place] ABS# 0.8 K/ul 03/16/2015 Cbc With Differential Ord2 Eos ABS# 0.1 K/ul 03/16/2015 Cbc With Differential Ord2 Baso ABS# 0.0 K/ul 03/16/2015 Cbc With Differential Ord2 New Analyzer Notice Please note new ref ranges starting 03-14-2015 due to implemntation of new five part differential hematolgy analyzer. 03/16/2015 Comp Metabolic Xhi708 NA 131 mEq/L 03/16/2015 Comp Metabolic Slh787 K 4.1 mEq/L 03/16/2015 Comp Metabolic Qvh493 CL 94 mEq/L 03/16/2015 Comp Metabolic Pzx368 CO2 28.0 mEq/L 03/16/2015 Comp Metabolic Mxi100 ANION GAP 13 03/16/2015 Comp Metabolic Dyq130 GLUCOSE 96 mg/dL 03/16/2015 Comp Metabolic Yiv522 Creat 0.7 mg/dL 03/16/2015 Comp Metabolic Tko324 eGFR 80 ml/min/1.73m2 03/16/2015 Comp Metabolic Zjx251 BUN 16 mg/dL 03/16/2015 Comp Metabolic Tdk289 B/C Ratio 21.6 Ratio 03/16/2015 Comp Metabolic Jwb710 CALCIUM 8.9 mg/dL 03/16/2015 Comp Metabolic Yvj249 ALK PHOS 44 U/L 03/16/2015 Comp Metabolic Dwy610 AST(SGOT) 22 U/L 03/16/2015 Comp Metabolic Kle816 ALT(SGPT) 14 U/L 03/16/2015 Comp Metabolic Ism468 BILI T 0.5 mg/dL 03/16/2015 Comp Metabolic Hsq236 ALBUMIN 3.4 g/dL 03/16/2015 Comp Metabolic Eoe664 TPRO 6.0 g/dL 03/16/2015 Comp Metabolic Axr420 GLOB 2.6 g/dL 03/16/2015 Comp Metabolic Kgt406 A/G Ratio 1.3 Ratio 03/16/2015 Comp Metabolic Idj930 Osmo 264 mOsmo 03/16/2015 Comp Metabolic Gld503 NA 129 mEq/L 11/09/2014 Comp Metabolic Ebn008 K 4.2 mEq/L 11/09/2014 Comp Metabolic Lpx014 CL 96 mEq/L 11/09/2014 Comp Metabolic Wdm927 CO2 27.0 mEq/L 11/09/2014 Comp Metabolic Kdi012 ANION GAP 10 11/09/2014 Comp Metabolic Zvs700 GLUCOSE 144 mg/dL 11/09/2014 Comp Metabolic Rcr763 Creat 0.8 mg/dL 11/09/2014 Comp Metabolic Dfu847 eGFR 73 ml/min/1.73m2 11/09/2014 Comp Metabolic Ptu896 BUN 22 mg/dL 11/09/2014 Comp Metabolic Fvi267 B/C Ratio 27.5 Ratio 11/09/2014 Comp Metabolic Ogm293 CALCIUM 8.6 mg/dL 11/09/2014 Comp Metabolic Nbj586 ALK PHOS 55 U/L 11/09/2014 Comp Metabolic Aja938 AST(SGOT) 27 U/L 11/09/2014 Comp Metabolic Clx779 ALT(SGPT) 18 U/L 11/09/2014 Comp Metabolic Brk908 BILI T 0.5 mg/dL 11/09/2014 Comp Metabolic Aae501 ALBUMIN 3.0 g/dL 11/09/2014 Comp Metabolic Fvv905 TPRO 5.4 g/dL 11/09/2014 Comp Metabolic Zvw730 GLOB 2.4 g/dL 11/09/2014 Comp Metabolic [id number] A/G Ratio 1.3 Ratio 11/09/2014 Comp Metabolic Zdf869 Osmo 265 mOsmo 11/09/2014 Magnesium Ord90 Mag [...] benign 09/15/2017 None Full Exam - General 1995 Lymphatic [...] 1995 Ears/Nose/Throat oral cavity/pharynx/larynx Overall: hypopharynx benign 03/12/2017 [...] Procedures Procedure Codes Date DRAIN/INJECT JOINT/BURSA CPT-4: 28250 08/21/2017 DRAIN/INJECT JOINT/BURSA CPT-4: 42272 08/12/2017 TRIAMCINOLONE ACET INJ NOS CPT-4: J3301 08/12/2017 DRAIN/INJECT JOINT/BURSA CPT-4: 44314 08/05/2017 TRIAMCINOLONE ACET INJ NOS CPT-4: J3301 08/05/2017 DRAIN/INJECT JOINT/BURSA CPT-4: 82651 07/23/2017 DRAIN/INJECT JOINT/BURSA CPT-4: 01697 07/09/2017 TRIAMCINOLONE ACET INJ NOS CPT-4: J3301 07/09/2017 PRESCRIP TRANSMIT VIA ERX SY CPT-4: G8553 07/09/2017 DRAIN/INJECT JOINT/BURSA CPT-4: 31583 07/01/2017 TRIAMCINOLONE ACET INJ NOS CPT-4: J3301 07/01/2017 PRESCRIP TRANSMIT VIA ERX SY CPT-4: G8553 07/01/2017 DRAIN/INJECT JOINT/BURSA CPT-4: 49972 06/17/2017 DRAIN/INJECT JOINT/BURSA CPT-4: 78929 04/02/2017 TRIAMCINOLONE ACET INJ NOS CPT-4: J3301 04/02/2017 DRAIN/INJECT JOINT/BURSA CPT-4: 46586 02/06/2017 ADMIN INFLUENZA VIRUS VAC CPT-4: G0008 12/08/2016 FLU VACC PRSV FREE INC ANTIG CPT-4: 41730 12/08/2016 PRESCRIP TRANSMIT VIA ERX SY CPT-4: G8553 12/08/2016 PRESCRIP TRANSMIT VIA ERX SY CPT-4: G8553 11/17/2016 TRIAMCINOLONE ACET INJ NOS CPT-4: J3301 10/02/2016 TRIAMCINOLONE ACET INJ NOS CPT-4: J3301 09/12/2016 DRAIN/INJECT JOINT/BURSA CPT-4: 28856 09/08/2016 TRIAMCINOLONE ACET INJ NOS CPT-4: J3301 09/08/2016 PRESCRIP TRANSMIT VIA ERX SY CPT-4: G8553 08/26/2016 PRESCRIP TRANSMIT VIA ERX SY CPT-4: G8553 08/18/2016 ADMIN INFLUENZA VIRUS VAC CPT-4: G0008 11/19/2015 FLU VACC PRSV FREE INC ANTIG Formatting Model/CDA Sections, Assigned to/Luanne Elaine CPT-4: 70772Ctwbdin 11/19/2015 PRESCRIP TRANSMIT VIA ERX SY CPT-4: G8553 09/04/2015 PRESCRIP TRANSMIT VIA ERX SY CPT-4: G8553 2015 PRESCRIP TRANSMIT VIA ERX SY CPT-4: G8553 07/18/2015 PRESCRIP TRANSMIT VIA ERX SY CPT-4: G8553 07/02/2015 REMOVE IMPACTED EAR WAX UNI CPT-4: 00894 04/09/2015 PRESCRIP TRANSMIT VIA ERX SY CPT-4: G8553 02/08/2015 ADMIN INFLUENZA VIRUS VAC CPT-4: G0008 01/10/2015 FLU VACC PRSV FREE INC ANTIG Formatting Model/CDA Sections, Assigned to/Chele Luanne CPT-4: 71838Tbviahb 01/10/2015 ADMIN PNEUMOCOCCAL VACCINE Formatting Model/CDA Sections, Assigned to SNOMED CT: 88274549 CPT-4: H2591Lupwzxh 12/11/2014 PNEUMOCOCCAL VACC [address]: 15749536 CPT-4: 62710 12/11/2014 Vital Signs Date Vital 10/20/2017 Blood Pressure 1: 120/62 Code : 8480-6 Heart Rate 1: 100 bpm Height: SpO2: 96% Weight: 09/29/2017 Blood Pressure 1: 124/68 Code : 8480-6 Heart Rate 1: 110 bpm Height: SpO2: 99% Weight: 09/15/2017 Blood Pressure 1: 122/68 Code : 8480-6 BMI: 24.7 Code : 02759-0 Heart Rate 1 : 100 bpm Height: 5'8" SpO2: 95% Weight: 160 lbs 08/31/2017 Blood Pressure 1: 128/78 Code : 8480-6 BMI: 23.6 Code : 45405-1 Heart Rate 1 : 102 bpm Height: 5'8" SpO2: 96% Weight: 153 lbs 08/21/2017 Blood Pressure 1: 138/78 Code : 8480-6 Heart Rate 1: 97 bpm SpO2: 95% Weight: 156 lbs 2 oz 08/12/2017 Blood Pressure 1: 138/74 Code : 8480-6 BMI: 25.0 Code : 02363-4 Heart Rate 1 : 94 bpm Height: 5'8" SpO2: 98% Weight: 162 lbs 08/05/2017 Blood Pressure 1: 126/78 Code : 8480-6 BMI: 25.8 Code : 96864-4 Heart Rate 1 : 74 bpm Height: 5'8" SpO2: 96% Weight: 167 lbs 07/23/2017 Blood Pressure 1: 106/64 Code : 8480-6 BMI: 25.3 Code : 06886-0 Heart Rate 1 : 81 bpm Height: 5'8" SpO2: 99% Weight: 163 lbs 14 oz 07/09/2017 Blood Pressure 1: 130/68 Code : 8480-6 Heart Rate 1: 82 bpm Height: 5'8" SpO2: 98% Weight: 07/01/2017 Blood Pressure 1: 124/76 Code : 8480-6 BMI: 26.5 Code : 53735-5 Heart Rate 1 : 99 bpm Height: 5'8" SpO2: 98% Weight: 172 lbs 06/24/2017 Blood Pressure 1: 118/70 Code : 8480-6 Heart Rate 1: 103 bpm Height: 5'8" SpO2: 98% Weight: 06/17/2017 Blood Pressure 1: 110/64 Code : 8480-6 BMI: 25.0 Code : 85086-9 Heart Rate 1 : 73 bpm Height: 5'8" Weight: 162 lbs 06/01/2017 Blood Pressure 1: 158/84 Code : 8480-6 BMI: 24.4 Code : 56007-9 Heart Rate 1 : 94 bpm Height: 5'8" SpO2: 95% Weight: 158 lbs 04/02/2017 Blood Pressure 1: 164/80 Code : 8480-6 BMI: 23.1 Code : 46467-2 Heart Rate 1 : 76 bpm Height: 5'8" SpO2: 94% Weight: 150 lbs 03/12/2017 Blood Pressure 1: 130/74 Code : 8480-6 BMI: 23.0 Code : 24706-4 Heart Rate 1 : 92 bpm Height: 5'8" SpO2: 94% Weight: 149 lbs 02/06/2017 Height: Weight: 01/08/2017 Blood Pressure 1: 136/76 Code : 8480-6 BMI: 21.4 Code : 12655-2 Heart Rate 1 : 85 bpm Height: 5'8" SpO2: 98% Weight: 138 lbs 8 oz 12/08/2016 Blood Pressure 1: 132/66 Code : 8480-6 BMI: 22.2 Code : 56793-8 Heart Rate 1 : 106 bpm Height: 5'8" SpO2: 97% Weight: 144 lbs 11/17/2016 Blood Pressure 1: 146/80 Code : 8480-6 BMI: 22.4 Code : 24466-6 Heart Rate 1 : 100 bpm Height: 5'8" SpO2: 98% Weight: 145 lbs 11/10/2016 Blood Pressure 1: 122/62 Code : 8480-6 BMI: 22.2 Code : 55565-6 Height: 5'8" Weight: 144 lbs 11/05/2016 Blood Pressure 1: 146/80 Code : 8480-6 BMI: 22.2 Code : 84226-1 Heart Rate 1 : 77 bpm Height: 5'8" SpO2: 99% Weight: 144 lbs 10/07/2016 Blood Pressure 1: 132/68 Code : 8480-6 BMI: 22.8 Code : 49810-2 Heart Rate 1 : 90 bpm Height: 5'8" SpO2: 97% Weight: 148 lbs 10/02/2016 Blood Pressure 1: 166/86 Code : 8480-6 BMI: 22.8 Code : 74371-7 Heart Rate 1 : 96 bpm Height: 5'8" SpO2: 96% Weight: 148 lbs 09/12/2016 Blood Pressure 1: 130/86 Code : 8480-6 Height: Weight: 09/08/2016 Blood Pressure 1: 132/74 Code : 8480-6 BMI: 22.4 Code : 05167-5 Heart Rate 1 : 93 bpm Height: 5'8" SpO2: 99% Weight: 145 lbs 08/26/2016 Blood Pressure 1: 132/78 Code : 8480-6 BMI: 23.9 Code : 39759-5 Heart Rate 1 : 80 bpm Height: 5'8" SpO2: 94% Weight: 155 lbs 08/18/2016 Blood Pressure 1: 130/70 Code : 8480-6 BMI: 23.6 Code : 36228-1 Heart Rate 1 : 100 bpm Height: 5'8" SpO2: 94% Weight: 153 lbs 07/30/2016 Blood Pressure 1: 144/84 Code : 8480-6 BMI: 22.4 Code : 63055-7 Heart Rate 1 : 86 bpm Height: 5'8" SpO2: 97% Weight: 145 lbs 07/14/2016 Blood Pressure 1: 122/74 Code : 8480-6 BMI: 22.5 Code : 38454-0 Heart Rate 1 : 87 bpm Height: 5'8" SpO2: 97% Weight: 146 lbs 07/04/2016 Blood Pressure 1: 128/78 Code : 8480-6 BMI: 22.5 Code : 09616-0 Heart Rate 1 : 98 bpm Height: 5'8" Weight: 146 lbs 06/26/2016 Blood Pressure 1: 122/68 Code : 8480-6 BMI: 22.5 Code : 77425-6 Heart Rate 1 : 102 bpm Height: 5'8" SpO2: 98% Weight: 146 lbs 05/28/2016 Blood Pressure 1: 122/68 Code : 8480-6 BMI: 22.4 Code : 10050-6 Heart Rate 1 : 89 bpm Height: 5'8" SpO2: 97% Weight: 145 lbs 03/18/2016 Blood Pressure 1: 132/66 Code : 8480-6 BMI: 22.8 Code : 45763-0 Heart Rate 1 : 96 bpm Height: 5'8" SpO2: 98% Weight: 148 lbs 01/29/2016 Blood Pressure 1: 122/66 Code : 8480-6 BMI: 22.2 Code : 63555-8 Heart Rate 1 : 90 bpm Height: 5'8" SpO2: 99% Weight: 144 lbs 01/01/2016 Blood Pressure 1: 148/82 Code : 8480-6 BMI: 22.5 Code : 44873-2 Heart Rate 1 : 82 bpm Height: 5'8" Weight: 146 lbs 11/19/2015 Blood Pressure 1: 140/74 Code : 8480-6 BMI: 23.7 Code : 91104-9 Heart Rate 1 : 79 bpm Height: 5'8" SpO2: 96% Weight: 153 lbs 8 oz 11/01/2015 Blood Pressure 1: 118/72 Code : 8480-6 Heart Rate 1: 90 bpm Height: 5'8" SpO2: 95% 09/04/2015 Blood Pressure 1: 136/72 Code : 8480-6 BMI: 23.1 Code : 44154-8 Heart Rate 1 : 97 bpm Height: 5'8" SpO2: 98% Weight: 149 lbs 8 oz 2015 Blood Pressure 1: 144/76 Code : 8480-6 BMI: 22.8 Code : 89388-4 Heart Rate 1 : 75 bpm Height: 5'8" SpO2: 97% Weight: 148 lbs 07/18/2015 Blood Pressure 1: 132/60 Code : 8480-6 BMI: 23.1 Code : 16907-1 Heart Rate 1 : 78 bpm Height: 5'8" Weight: 150 lbs 07/02/2015 Blood Pressure 1: 156/86 Code : 8480-6 BMI: 23.0 Code : 52146-9 Heart Rate 1 : 75 bpm Height: 5'8" SpO2: 99% Weight: 149 lbs 05/31/2015 Blood Pressure 1: 136/72 Code : 8480-6 BMI: 22.7 Code : 85174-4 Heart Rate 1 : 85 bpm Height: 5'8" SpO2: 97% Weight: 147 lbs 04/09/2015 Blood Pressure 1: 118/60 Code : 8480-6 BMI: 22.7 Code : 64590-7 Heart Rate 1 : 72 bpm Height: 5'8" SpO2: 95% Weight: 147 lbs 02/08/2015 Blood Pressure 1: 138/76 Code : 8480-6 BMI: 23.1 Code : 31979-7 Heart Rate 1 : 80 bpm Height: 5'8" SpO2: 98% Weight: 150 lbs 12/11/2014 Blood Pressure 1: 120/74 Code : 8480-6 BMI: 22.1 Code : 02864-2 Heart Rate 1 : 92 bpm Height: 5'8" SpO2: 96% Weight: 143 lbs 11/09/2014 Blood Pressure 1: 100/64 Code : 8480-6 BMI: 21.6 Code : 78273-2 Heart Rate 1 : 88 bpm Height: 5'8" Weight: 140 lbs 10/23/2014 Blood Pressure 1: 138/82 Code : 8480-6 BMI: 23.6 Code : 13332-5 Heart Rate 1 : 86 bpm Height: 5'8" Weight: 153 lbs 10/16/2014 Blood Pressure 1: 128/60 Code : 8480-6 BMI: 23.3 Code : 06375-7 Heart Rate 1 : 91 bpm Height: 5'8" SpO2: 99% Weight: 151 lbs 10/09/2014 Blood Pressure 1: 120/60 Code : 8480-6 BMI: 23.0 Code : 37315-8 Heart Rate 1 : 96 bpm Height: 5'8" SpO2: 97% Weight: 149 lbs 09/14/2014 Blood Pressure 1: 132/72 Code : 8480-6 BMI: 22.1 Code : 29840-2 Heart Rate 1 : 84 bpm Height: 5'8" SpO2: 97% Weight: 143 lbs 08/11/2014 Blood Pressure 1: 134/74 Code : 8480-6 BMI: 24.1 Code : 29736-5 Heart Rate 1 : 88 bpm Height: 5'8" Weight: 156 lbs 07/12/2014 Blood Pressure 1: 122/62 Code : 8480-6 BMI: 22.7 Code : 95293-3 Heart Rate 1 : 76 bpm Height: [...] Dr. Blancas in [place] and Neurosurgeon in [place] in the past neck pain Significant Medical Conditions spinal stenosis 07/12/2014 has osteoarthritis Advance Directives No Advance Directive data Encounters Encounter Performer Location Codes Date ([id number]) 84145 EST. PATIENT, LEVEL IV Diagnosis: Essential (primary) [...] R60.0] [facility] CPT- 4: 63888 10/20/2017 ([id number]) 47091 EST. PATIENT, LEVEL IV Diagnosis: Essential (primary) [...] M25.512] Araceli Silva MD, [facility] CPT-4: 26452 09/29/2017 ([id number]) 87625 EST. 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 PATIENT, LEVEL III Diagnosis: Localized edema[ICD10: R60.0] Araceli Silva MD, [facility] CPT- 4: 61974 07/23/2017 ([id number]) 07773 EST. 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 PATIENT, LEVEL III Diagnosis: Chronic pain syndrome[ICD10: G89.4] Araceli Silva MD, [facility] CPT-4: 00074 06/24/2017 ([id number]) 99167 EST. 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 PATIENT, LEVEL III Diagnosis: Pain in left shoulder[ICD10: M25.512] Diagnosis: Hemarthrosis, right shoulder[ICD10: M25.011] Diagnosis: Hemarthrosis, left shoulder[ICD10: M25.012] Maricel Silva MD, [facility] CPT-4: 88332 06/01/2017 ([id number]) 01158 EST. PATIENT, LEVEL II Diagnosis: Pain in right shoulder[ICD10: M25.511] Diagnosis: Hemarthrosis, right shoulder[ICD10: M25.011] Araceli Silva MD, [facility] CPT-4: 04925 04/02/2017 ([id number]) 32603 EST. 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 PATIENT, LEVEL IV Diagnosis: Primary osteoarthritis, right shoulder[ICD10: M19.011] Diagnosis: Chronic pain syndrome[ICD10: G89.4] Diagnosis: Essential (primary) hypertension[ICD10: I10] Diagnosis: Hypomagnesemia[ICD10: E83.42] [facility]eli [facility] MD, [facility] CPT- 4: 40736 01/08/2017 ([id number]) 52729 EST. PATIENT, LEVEL IV Diagnosis: Encounter for immunization[ICD10: Z23] Diagnosis: Chronic pain syndrome[ICD10: G89.4] Diagnosis: Essential (primary) hypertension[ICD10: I10] Ar[facility]eli [facility] MD, [facility] CPT-4: 93998 12/08/2016 ([id number]) 04636 EST. PATIENT, LEVEL III Diagnosis: Urge incontinence[ICD10: N39.41] Diagnosis: Chronic pain syndrome[ICD10: G89.4] Diagnosis: Lymphedema, not elsewhere classified[ICD10: I89.0] Araceli Silva MD, [facility] CPT-4: 81951 11/17/2016 82472 EST. 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 PATIENT, LEVEL IV Diagnosis: Essential (primary) hypertension[ICD10: I10] Diagnosis: Other chronic pain[ICD10: G89.29] Diagnosis: Localized edema[ICD10: R60.0] Diagnosis: Urge incontinence[ICD10: N39.41] Araceli Silva MD, [facility] CPT-4: 55385 11/05/2016 ([id number]) 11726 EST. 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 PATIENT, LEVEL III Diagnosis: Hemarthrosis, right shoulder[ICD10: M25.011] Diagnosis: Pain in right shoulder[ICD10: M25.511] Ila Silva MD, [facility] CPT-4: 00656 10/02/2016 21930 EST. PATIENT, LEVEL II Diagnosis: Low back pain[ICD10: M54.5] Diagnosis: Sacroiliitis, not elsewhere classified[ICD10: M46.1] Ila Silva MD, [facility] CPT-4: 31212 09/12/2016 ([id number]) 76986 EST. PATIENT, LEVEL III Diagnosis: Hemarthrosis, right shoulder[ICD10: M25.011] Diagnosis: Other chronic pain[ICD10: G89.29] Araceli Silva MD [facility] CPT-4: 50941 09/08/2016 ([id number]) 39819 EST. PATIENT, LEVEL IV Diagnosis: Other iron deficiency anemias[ICD10: D50.8] Diagnosis: Vitamin D deficiency, unspecified[ICD10: E55.9] Diagnosis: Hypomagnesemia[ICD10: E83.42] Araceli Silva MD, [facility] CPT- 4: 03015 08/26/2016 ([id number]) 55632 EST. PATIENT, LEVEL III Diagnosis: Localized edema[ICD10: R60.0] Araceli Silva MD, [facility] CPT- 4: 38654 08/18/2016 ([id number]) 10539 EST. 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 PATIENT, LEVEL IV Diagnosis: Pain in left shoulder[ICD10: M25.512] Diagnosis: Nocturia[ICD10: R35.1] Maricel Silva MD, [facility] CPT-4: 62631 07/14/2016 02075 EST. PATIENT, LEVEL III Diagnosis: Pain in left shoulder[ICD10: M25.512] Maricel Silva MD, [facility] CPT-4: 21735 07/04/2016 ([id number]) 14351 EST. 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 PATIENT, LEVEL II Diagnosis: Insect bite (nonvenomous) of right upper arm, initial encounter[ICD10 : S40.861A] Ila Silva MD, [facility] CPT-4: 08787 11/01/2015 ([id number]) 58428 EST. 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 PATIENT, LEVEL III Diagnosis: Contusion of left upper arm, subsequent encounter[ICD10: S40.022D] Araceli Silva MD, [facility] CPT-4: 10315 2015 87239 EST. PATIENT, LEVEL III Diagnosis: Cellulitis of left upper limb[ICD10: L03.114] [facility] CPT-4: 85598 07/18/2015 ([id number]) 05358 EST. 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 PATIENT, LEVEL IV Diagnosis: Essential (primary) hypertension[ICD10: I10] Diagnosis: Vitamin D deficiency, unspecified[ICD10: E55.9] Diagnosis: Mixed hyperlipidemia[ICD10: E78.2] Diagnosis: Age-related osteoporosis with current pathological fracture, unspecified site, sequela[ICD10: M80.00XS] Araceli Silva MD, [facility] CPT- 4: 63043 02/08/2015 [id number]) 88181 EST. PATIENT, LEVEL IV Diagnosis: Essential (primary) hypertension[ICD10: I10] Diagnosis: Localized edema[ICD10: R60.0] Diagnosis: Primary osteoarthritis, unspecified site[ICD10: M19.91] Araceli Silva MD, [facility] CPT-4: 39148 12/11/2014 ([id number]) 07131 EST. PATIENT, LEVEL III Diagnosis: EDEMA[ICD9: 782.3] Diagnosis: ESSENTIAL HYPERTENSION[ICD9: 401.9] Araceli Silva MD, [facility] CPT-4: 82729 11/09/2014 ([id number]) 77648 EST. PATIENT, LEVEL III Diagnosis: Leg pain[ICD9: 729.5] Diagnosis: Ulcer of toe[ICD9: 707.15] Araceli Silva MD, [facility] CPT- 4: 89053 10/23/2014 ([id number]) 51387 EST. PATIENT, LEVEL III Diagnosis: Ulcer of toe[ICD9: 707.15] Araceli Silva MD [facility] CPT- 4: 34934 10/16/2014 13076 EST. PATIENT, LEVEL II Diagnosis: Ulcer of toe[ICD9: 707.15] Ila Silva MD, [facility] CPT-4: 71718 10/09/2014 ([id number]) 97933 EST. PATIENT, LEVEL III Diagnosis: EDEMA[ICD9: 782.3] Araceli Silva MD, [facility] CPT-4: 33265 09/14/2014 ([id number]) 25081 EST. PATIENT, LEVEL IV Diagnosis: EDEMA[ICD9: 782.3] Diagnosis: ESSENTIAL HYPERTENSION[ICD9: 401.9] Araceli Silva MD, [facility] CPT-4: 65950 08/11/2014 ([id number]) OFFICE VISIT, NEW - LEVEL 4 Diagnosis: HYPERLIPIDEMIA[ICD9: 272.4] Diagnosis: VITAMIN D DEFICIENCY[ICD9: 268.9] Diagnosis: Osteoporosis[ICD9: 733.00] Diagnosis: Esophageal reflux[ICD9: 530.81] Diagnosis: Chronic pain[ICD9: 338.29] Araceli Silva MD, [facility] CPT- 4: 54174 07/12/2014 Plan of Care Planned Activity Notes [...] with supportive care at this time. 10/20/2017 Patient Education: Patient Medication Summary Completed 10/20/2017 Care Plan: Prealbumin Pending 10/20/2017 Visit Plan: Rheumatoid arthritis of shoulders, [...] drained today. 09/29/2017 Appointment: Araceli Silva WPtel: [address] [place], [place] [id number] (15 min) Moderate 09/29/2017 Patient Education: Patient [...] Completed 08/21/2017 Appointment: [facility] [phone] [facility] [id number] (15 min) Moderate 08/20/2017 Visit Plan: Hemarthrosis shoulders - 250mL from left shoulder and 100mL from right shoulder with 1ml kenalog injected into right and left shoulders - Left and right shoulder pain and swelling, swelling into arms and left breast -pt to continue with use of compression sleeves. [id number] sep 2018 bristol 2ml kenalog 08/12/2017 Appointment: Araceli Silva [facility]Ptel[facility] [phone] [facility] [id number] (15 min) Moderate 08/12/2017 Patient Education: Patient [...] peripheral edema. 08/05/2017 Appointment: Araceli Silva WPtel: [id number] [place] (15 min) Moderate 08/05/2017 Patient Education: [...] peripheral edema. 07/23/2017 Appointment: Araceli Silva WPtel: [id number] [place] (15 min) Moderate 07/23/2017 Patient Education: [...] symptoms. 07/09/2017 Appointment: Araceli Silva WPtel: [phone] [id number] [place] (15 min) Moderate 07/09/2017 Patient Education: Patient Medication Summary Completed 07/09/2017 Referral: [facility]IA [facility] WPtel: Referral Initiated 07/08/2017 Visit [...] monitor symptoms. 07/01/2017 Appointment: Araceli Silva WPtel: [id number] (15 min) Moderate 07/01/2017 Patient Education: Patient Medication Summary Completed 07/01/2017 Visit Plan: Chronic Pain Syndrome - pt has chronic pain - has been maintained on current medications, has not sought out other medications , only uses PRN pain medications as directed, and understands the consequences of over-medication. 06/24/2017 Appointment: Araceli [facility] [facility] (15 min) Moderate 06/24/2017 Patient Education: Patient [...] peripheral edema. 06/17/2017 Appointment: Araceli Silva WPtel: [facility] (30 min) Complex 06/17/2017 Patient Education: Patient Medication Summary Completed 06/17/2017 Appointment: Araceli Silva WPtel: [phone] [facility] (15 min) Moderate 06/08/2017 Care Plan: Referral Order SNOMED-CT : [id number] Pending 06/02/2017 Visit Plan: Left and right [...] edema. 06/01/2017 Appointment: [phone] (30 min) Complex 06/01/2017 Patient Education: Patient [...] shoulder 04/02/2017 Appointment: Araceli Silva WPtel: [phone] [facility] [place] (15 min) Moderate 04/02/2017 Patient Education: [...] upset. 03/12/2017 Appointment: Araceli Silva WPtel: [address] [facility] [place] (15 min) Moderate 03/12/2017 Patient Education: [...] check ROMIE. 01/08/2017 Appointment: Araceli Silva WPtel: [phone] [facility] [place] (15 min) Moderate 01/08/2017 Patient Education: [...] Remicaide. 12/08/2016 Appointment: Araceli Silva WPtel: [address] [facility] [place] (15 min) Moderate 12/08/2016 Patient Education: [...] for now 11/17/2016 Appointment: Araceli Silva WPtel: [facility]6 [id number] (15 min) Moderate 11/17/2016 Patient Education: Patient [...] of over-medication. 11/10/2016 Appointment: Maricel Gee WPtel: [facility]9 [facility] (30 min) Complex 11/10/2016 Patient Education: [...] immunosuppression. 11/05/2016 Appointment: Araceli Silva WPtel: [phone] [facility] (15 min) Moderate 11/05/2016 Patient Education: Patient Medication Summary Completed 11/05/2016 Patient Education: Hypertension Completed 11/05/2016 Referral: External, Ordering Provider Referral Completed 10/23/2016 Referral: Dr Virgen Referral Initiated 10/16/2016 Visit Plan: OA with acute swelling in shoulders bilaterally right shoulder with increased pain compared to left. I have recommended a referral to Dr. Ambrocoi Pt is not a good candidate for oral antiinflammatories or steroids due to GI bleeding. Hearing loss - referral to audiology - virgen's office Chronic pain - increase fentanyl to 75mcg change q72 hours. Monitor symptoms of pain control on the topical medication. Anemia - check cbc today. 10/07/2016 Appointment: Araceli Silva WPtel: [facility]5 [facility] (15 min) Moderate 10/07/2016 Patient Education: Patient Medication Summary Completed 10/07/2016 Care Plan: Referral Order SNOMED-CT : [id number] Pending 10/07/2016 Care Plan: Referral Order SNOMED-CT : [id number] Pending 10/07/2016 Visit Plan: Hemarthrosis -right shoulder-only able to drain 5ml of bloody drainage-unable to give oral steroids due to recent GI bleed -will give kenalog injection today in the office-discussed getting OSMO patch 10/02/2016 Appointment: Ila Kennedy WPtel: [address] [place], [place] [id number] [place] (30 min) Complex 10/02/2016 Patient Education: Patient Medication Summary Completed 10/02/2016 Appointment: Araceli Silva WPtel: [facility]5 [facility] [place] (15 min) Moderate 09/23/2016 Appointment: Araceli Silva WPtel: [address] [place], [place] [phone] (15 min) Moderate 09/17/2016 Visit Plan: Sacroiliitis - back exercises discussed with the patient, pt to continue with anti-inflammatories. Pt is to call if the symptoms do not improve or if they worsen. Kenalog injection today in the office. 09/12/2016 Appointment: Ila Kennedy [facility]Ptel: [facility] (15 min) Moderate 09/12/2016 Patient Education: Patient Medication Summary Completed 09/12/2016 Visit Plan: Hemarthrosis - drain right shoulder. Injection of kenalog 1mL - 40mg - [facility] - lot #[id number] , expires oct 2017 Chronic Pain Syndrome [...] of over-medication. 09/08/2016 Appointment: Araceli Silva WPtel: [phone] [facility] (15 min) Moderate 09/08/2016 Patient Education: Patient [...] magnesium level 08/26/2016 Appointment: Araceli Silva WPtel: [address] [facility] (15 min) Moderate 08/26/2016 Patient Education: Patient [...] Education: Patient Medication Summary Completed 08/18/2016 Appointment: Ricardo Araceli WPtel: [address] [place], [place] [phone] (15 min) Moderate 08/13/2016 Appointment: RicardoCharlie hensony WPtel: [facility]5 [facility] (15 min) Moderate 08/06/2016 Visit Plan: Chronic [...] the daytime. 07/30/2016 Appointment: Araceli Silva WPtel: [facility]4 [facility] (15 min) Moderate 07/30/2016 Patient Education: Patient Medication Summary Completed 07/30/2016 Visit Plan: Left shoulder pain - improving - pt is to notify clinic if symptoms do not improve, if they worsen, or with any questions or concerns. Nocturia - will give samples, pt is to notify clinic if symptoms do not improve. 07/14/2016 Appointment: Maricel Gee WPtel: [address] [place], [place] [phone] (30 min) Complex 07/14/2016 Patient Education: Patient [...] any dyspnea. 07/04/2016 Appointment: Maricel Gee WPtel: [facility] [place] (30 min) Complex 07/04/2016 Patient Education: [...] over- medication. 06/26/2016 Appointment: Araceli Silva WPtel: [facility]5 [facility] (15 min) Moderate 06/26/2016 Patient Education: Patient [...] of over-medication. 05/28/2016 Appointment: Araceli Silva WPtel: [facility] [place] (15 min) Moderate 05/28/2016 Patient Education: Patient Medication Summary Completed 05/28/2016 Patient Education: Hypertension Completed 05/28/2016 Appointment: Araceli Silva WPtel: [facility] [place] (15 min) Moderate 05/12/2016 Appointment: Araceli Silva WPtel: [facility] [place] (15 min) Moderate 04/15/2016 Appointment: Araceli Silva WPtel: [facility] [place] (30 min) Complex 03/25/2016 Visit Plan: [...] the premarin. 03/18/2016 Appointment: Araceli Silva WPtel: [address] [facility] (30 min) Complex 03/18/2016 Patient Education: Patient Medication Summary Completed 03/18/2016 Appointment: Araceli Silva WPtel: [facility]2 [facility] (15 min) Moderate 02/19/2016 Visit Plan: Hypertension [...] of over-medication. 01/29/2016 Appointment: Araceli Silva WPtel: [phone] [facility] [place] (15 min) Moderate 01/29/2016 Patient Education: Patient Medication Summary Completed 01/29/2016 Visit Plan: Discussed MRI of the neck - pt is interested in doing this - however, not prior to changing her medication first to see if this helps her pain 01/01/2016 Appointment: Araceli Silva WPtel: [address] [facility] [place] (15 min) Moderate 01/01/2016 Patient Education: Patient Medication Summary Completed 01/01/2016 Patient Education: Hypertension Completed 01/01/2016 Appointment: Araceli Silva WPtel: [phone] [facility] [place] (15 min) Moderate 12/03/2015 Visit Plan: [...] or nonhealing. 11/01/2015 Appointment: Ila Kennedy WPtel: 1013 [facility] [place] (15 min) Moderate 11/01/2015 Patient Education: Patient Medication Summary Completed 11/01/2015 Visit Plan: Chronic Pain Syndrome - pt has chronic pain - has been maintained on current medications, has not sought out other medications , only uses PRN pain medications as directed, and understands the consequences of over-medication. Muscle spasms - recommended muscle rub. 09/04/2015 Appointment: Araceli Silva WPtel: [phone] [facility] [place] (15 min) Moderate 09/04/2015 Patient Education: Patient Medication Summary Completed 09/04/2015 Visit Plan: Ecchymosis/hematoma - improving - discussed natural progression of hematomas - watchful waiting. 2015 Appointment: Araceli Silva WPtel: [phone] [facility] [place] (15 min) Moderate 2015 Patient Education: Patient Medication Summary Completed 2015 Visit Plan: Cellulitis - continue with oral antibiotics as previously directed, return to clinic as previously directed, call for acute change in symptoms, worsening redness, warmth, discharge. 07/18/2015 Appointment: Ila Kennedy [facility]Ptel: [facility] [place] (30 min) Complex 07/18/2015 Patient Education: [...] center/surgery center. 07/02/2015 Appointment: Araceli Silva WPtel: [address] [facility] [place] (15 min) Moderate 07/02/2015 Patient Education: [...] removal process. 04/09/2015 Appointment: Araceli Silva WPtel: [address] [place] [address] (15 min) Moderate 04/09/2015 Patient Education: Patient [...] supplementation. 02/08/2015 Appointment: Araceli Silva WPtel: [address] [facility] (15 min) Moderate 02/08/2015 Patient Education: Patient [...] evening. 12/11/2014 Appointment: Araceli Silva WPtel: [address] [facility] (15 min) Moderate 12/11/2014 Patient Education: Patient [...] - improved. 11/09/2014 Appointment: Araceli Silva WPtel: [facility] (15 min) Moderate 11/09/2014 Patient Education: Patient Medication Summary Completed 11/09/2014 Patient Education: Hypertension Completed 11/09/2014 Visit Plan: Leg pain/cellulitis of leg - start on the doxycycline twice daily - take this x 2 weeks, if the symptoms in your leg/ thigh are not completely resolved, there is a refill that is available. start on a probiotic one pill daily ([employer] or [employer]) this will help prevent the development of a bad type of diarrhea that can occur when taking antibiotics. Ulcer of toe - improving. 10/23/2014 Appointment: Araceli Silva WPtel: [facility]4 [facility] (15 min) Moderate 10/23/2014 Patient Education: Patient Medication Summary Completed 10/23/2014 Visit Plan: Ulcer - keep lesion covered, antibiotic ointment to be used, monitor - call if redness increases or starts streaking up the foot. 10/16/2014 Appointment: Araceli Silva WPtel: [facility]8 [facility] (15 min) Moderate 10/16/2014 Patient Education: Patient [...] peripheral edema. 09/14/2014 Appointment: Araceli Silva WPtel: [facility]0 [place] [phone] Follow up 09/14/2014 Patient Education: Patient Medication [...] medication. 07/12/2014 Appointment: Araceli Silva WPtel: [address] [facility] [place] (S) New Patient 07/12/2014 Patient Education: Patient Medication Summary Completed 07/12/2014 Patient Education: Hypertension Completed 07/12/2014 Referral: Dr Virgen Referral Completed Referral: External, Ordering Provider Referral Completed Referral: [facility] WPtel: Referral Initiated Instructions Comment [...] Injection of kenalog 1mL - 40mg - [facility] - lot #[id number] , expires oct 2017 Chronic Pain Syndrome [...] start on a probiotic one pill daily ([employer] or [employer]) this will help prevent the development of a bad type of diarrhea that can occur when taking antibiotics. . Leg pain/cellulitis of leg - start on the doxycycline twice daily - take this x 2 weeks, if the symptoms in your leg/thigh are not completely resolved, there is a refill that is available. start on a probiotic one pill daily ([employer] or [employer]) this will help prevent the development of [...] to continue with use of compression sleeves. [id number] sep 2018 bristol 2ml kenalog . Hypertension [...] office. two old goats muscle rub from [employer] [facility] [employer]. . Chronic Pain Syndrome [...]
[2018-01-25] MEDS ORDERED: ONDANSETRON 4 MG/2 ML (SDV) Z0FRAN ONE (17:48)
[2018-01-25 17:50] LABS: BACTERIA,URINE MODERATE /HPF; SQUAMOUS EPITHELIAL CELL,UR 0-2 /HPF
[2018-01-25 17:51] LABS: ALBUMIN 4.2 GM/DL (3.2-4.5); BILIRUBIN,TOTAL 1.1 MG/DL (0.1-1.0); CALCIUM 9.6 MG/DL (8.5-10.1); CREATININE SERUM 1.19 MG/DL (0.60-1.30); MAGNESIUM 1.9 MG/DL (1.8-2.4); POTASSIUM 2.7 MMOL/L (3.6-5.0); TOTAL PROTEIN 7.5 GM/DL (6.4-8.2)
[2018-01-25] MEDS ORDERED: ONDANSETRON 4 MG/2 ML (SDV) Z0FRAN IV ONE (18:00)
--- NOTE | 2018-01-25 18:28 | Diagnostic Imaging Report ---
PROCEDURE: CT abdomen and pelvis without contrast. TECHNIQUE: Multiple contiguous axial images were obtained through the abdomen and pelvis without the use of intravenous contrast. INDICATION: Abdominal pain with vomiting and distention. COMPARISON: December 05, 2015. FINDINGS: The visualized lung bases are clear. The unenhanced liver, spleen, adrenal glands, and left kidney are grossly unremarkable. Hypodensity within the anterior aspect of the right kidney is again identified, appearing similar to the prior exam. The right kidney is otherwise unremarkable. Moderate vascular calcifications within the abdominal aorta and its branch vessels without aneurysmal dilatation of the abdominal aorta. The urinary bladder is unremarkable. The uterus is not visualized, likely surgically absent. No abnormal adnexal mass lesion. Moderate amount of stool is identified throughout the colon with prominent stool ball within the distal sigmoid colon and rectal vault. Mild haziness is identified within the fat adjacent to the rectum. No dilated loops of small bowel. No significant adenopathy, free air, or free fluid within the abdomen or pelvis. Mild diffuse anasarca. Extensive postsurgical changes are again identified throughout the thoracolumbar spine. No acute osseous abnormality. IMPRESSION: Moderate amount of stool throughout the colon with prominent stool ball within the rectal vault. Findings may relate to constipation/obstipation. No evidence of small bowel obstruction. Extensive postsurgical changes again noted throughout the spine. Mild colonic diverticulosis without CT evidence of diverticulitis. Additional findings as above. Dictated by: Dictated on workstation # [id number]
[2018-01-25 19:15] VITALS: BP 131/66
[2018-01-25] MEDS ORDERED: CATHETER FLUSH 10 ML SYR IV PRN (20:00)
--- NOTE | 2018-01-25 20:02 | History & Physicial ---
History of Present Illness History of Present Illness Reason for visit/HPI PT IS AN 82 Y/O FEMALE WHO IS WELL KNOWN TO ME FROM CLINIC. SHE PRESENTED TO THE EMERGENCY DEPARTMENT WITH COMPLAINT OF NAUSEA AND EMESIS TODAY THAT WAS ACCOMPANIED BY ABDOMINAL PAIN. SHE WAS WORRIED ABOUT A BOWEL OBSTRUCTION DUE TO THE SEVERITY OF HER PAIN. SHE WAS FOUND TO BE OBSTIPATED AND HAD HYPOCHLOREMIA, HYPOKALEMIA, AND WAS RECOMMENDED FOR ADMISSION DUE TO SYMPTOMS AND NEED FOR CONTROL OF PAIN AND TREATMENT OF OBSTIPATION. Date of Admission Jan 25, 2018 at 18:26 Date Seen by a Provider: Jan 25, 2018 Time Seen by a Provider: 18:40 I consulted on this patient on 01/25/18 19:57 Attending Physician Woody Silva MD Admitting Physician Woody Silva MD Consult Allergies and Home Medications Allergies Coded Allergies: Penicillins (Verified Allergy, Unknown, 01/25/18) Sulfa (Sulfonamide Antibiotics) (Verified Allergy, Unknown, 01/25/18) Home Medications Ascorbate Calcium 500 Mg Tablet, 500 MG PO HS, (Reported) Calcium Carbonate/Vitamin D3 1 Each Tablet, 1 TAB PO BID, (Reported) Cholecalciferol (Vitamin D3) 1,000 Unit Capsule, 1,000 UNIT PO BID, (Reported) Cyanocobalamin 1,000 Mcg/Ml Inj, 1,000 MCG IJ MONTHLY, (Reported) Denosumab 60 Mg/1 Ml Disp.syrin, SQ EVERY 6 MONTHS, (Reported) Diclofenac Sodium 100 Gm Gel..gram., 4 GM TOP QID APPLY TO SHOULDERS, UPPER BACK AND NECK Prescribed by: WOODY SILVA on 12/14/17921 Diltiazem HCl 360 Mg Cap.er.24h, 360 MG PO DAILY, (Reported) Fentanyl 1 Each Patch.td72, 25 MCG TD Q72H, (Reported) Fentanyl 1 Each Patch.td72, 100 MCG TD Q72H, (Reported) Furosemide 40 Mg Tablet, 40 MG PO DAILY@07,17 Prescribed by: WOODY SILVA on 12/14/17921 Iodine/Sodium Iodide 30 Ml Tincture, TP HS, (Reported) APPLY AROUND EDGE OF SORE ON BOTTOM OF RIGHT FOOT Oxycodone HCl 30 Mg Tablet, 15 MG PO QID, (Reported) TAKES 1/2 OF A (30 MG) TABLET Pantoprazole Sodium 40 Mg Tablet.dr, 40 MG PO DAILY, (Reported) Polyethylene Glycol 3350 17 Gm Powd.pack, 17 GM PO HS, (Reported) Potassium Chloride 10 Meq Tablet.er, 2 TAB PO TID Prescribed by: WOODY SILVA on 12/14/17 0922 Prednisone 5 Mg Tablet, 5 MG PO 0130, (Reported) Silver Sulfadiazine 25 Gm Cream..g., TOP HS, (Reported) APPLY TO BOTTOM OF RIGHT FOOT Patient Home Medication List Home Medication List Reviewed: Yes Past Yqxnjmy-Qjpupd-Tjpqjc Hx Patient Social History Living Status: LIVES WITH [facility]. Employed/Student: retired Alcohol Use: Denies Use Alcohol Beverage of Choice: Wine, Vodka Smoking Status: Former Smoker Former Smoker, Quit: Dec 05, 1961 Type Used: Cigarettes 2nd Hand Smoke Exposure: No Physical Abuse Screen: No Sexual Abuse: No Recent Foreign Travel: No Contact w/other who traveled: No Recent Hopitalizations: No Recent Infectious Disease Expo: No Immunizations Up To Date Tetanus Booster (TDap): Unknown Pediatric: Yes Date of Pneumonia Vaccine: Mar 02, 2014 Date of Influenza Vaccine: Dec 06, 2017 Seasonal Allergies Seasonal Allergies: No Surgeries Yes (6 back and 3 total knees, 4 alt. 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 Genitourinary No Bladder Infection Gastrointestinal Yes (Bleeding ulcer August 2016) Gastroesophageal Reflux, Gastrointestinal Bleed, Obstructive Bowel, Ulcer, Irritable Bowel Musculoskeletal Yes (multiple back and knee surgeries, osteoarthritis, SCIATICA) Degenerate Disk Disease, Arthritis, Fibromyalgia, Rheumatoid Arthritis, Scoliosis, Chronic Back Pain, Fractures Endocrine History of Endocrine Disorders: No HEENT History of HEENT Disorders: Yes HEENT Disorders: Cataract Loss of Vision: Denies Hearing Impairment: Hard of Hearing Cancer No Psychosocial History of Psychiatric Problem: No Integumentary History of Skin or Integumenta: Yes (lymphedema, bruises) Blood Transfusions History of Blood Disorders: Yes (hx of anemia) Adverse Reaction to a Blood Tr: No Reviewed Nursing Assessment Reviewed/Agree w Nursing PMH: Yes Family Medical History Significant Family History: Heart Disease, Hypertension Review of Systems Constitutional: No chills, No fever; malaise, weakness EENTM: No hoarseness, No throat pain Respiratory: No cough, No dyspnea on exertion, No short of breath Cardiovascular: No chest pain; edema Gastrointestinal: abdominal pain, constipation, nausea, vomiting Genitourinary: no symptoms reported Musculoskeletal: back pain, joint pain (SHOULDERS), muscle weakness, neck pain Skin: No change in color, No lesions Psychiatric/Neurological: Denies Anxiety, Denies Depressed All Other Systems Reviewed Negative Unless Noted: Yes Physical Exam Vital Signs Vital Signs - First Documented 01/25/18 01/25/18 16:43 19:02 Temp 98.3 Pulse 100 Resp 20 B/P (MAP) 144/94 (111) Pulse Ox 98 O2 Delivery Room Air O2 Flow Rate 2.00 Capillary Refill : Less Than 3 Seconds Height, Weight, BMI Height: 5'7.00" Weight: 148lbs. 0.0oz. 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 HYPOCHLOREMIA AND HYPOKALEMIA - IV POTASSIUM AND NORMAL SALINE CHRONIC PAIN SYNDROME - CONTINUE WITH FENTANYL PATCHES CHRONIC STEROID USE - CONTINUE WITH PREDNISONE ORALLY CHRONIC EDEMA/LYMPHEDEMA - LASIX DRIP Admission Diagnosis OBSTIPATION HYPOCHLOREMIA HYPOKALEMIA CHRONIC PAIN SYNDROME CHRONIC STEROID USE CHRONIC EDEMA/LYMPHEDEMA Admission Status: Inpatient Order (span 2 midnights) Reason for Inpatient Admission: PT ADMITTED TO HOSPITAL WITH NEED FOR IV ELECTROLYTES AND TREATMENT OF OBSTIPATION PLAN FOR TWO MIDNIGHTS. WOODY SILVA MD Jan 25, 2018 20:02
[2018-01-25] MEDS ORDERED: fentaNYL PATCH 25 MCG (DURAGESIC) TD SCH (20:15)
[2018-01-25] MEDS ORDERED: fentaNYL PATCH 100 MCG (DURAGESIC) TD SCH (20:15)
[2018-01-25] MEDS ORDERED: METHYLNALTREXONE 12 MG/0.6 ML (RELISTOR) VIAL SQ NR (20:15)
[2018-01-25] MEDS ORDERED: NON-FORMULARY MEDICATION 1 EA EA (Oxycodone HCl 15 MG) PO SCH (21:00)
[2018-01-25] MEDS: NS IV 1000 ML 1,000 ML IV SCH (21:29)
[2018-01-25] MEDS: POTASSIUM CL 10 MEQ/50 ML IVPB (PRE-MIX) IV SCH ×3 (21:30→23:44)
[2018-01-25] MEDS: POLYETHYLENE GLYCOL 17 GM (MIRALAX) PACK PO SCH (21:32)
[2018-01-25] MEDS: DEXTROSE IV SCH ×2 (21:33)
[2018-01-25] MEDS: FUROSEMIDE IV SCH ×2 (21:33)
[2018-01-25 23:55] VITALS: BP 130/65
[2018-01-26] MEDS: POTASSIUM CL 10 MEQ/50 ML IVPB (PRE-MIX) IV SCH (00:47)
[2018-01-26 03:45] VITALS: BP 131/73
[2018-01-26 05:55] LABS: BASOPHILS % (AUTO) 0 % (0-10); EOSINOPHILS % (AUTO) 0 % (0-10); HEMATOCRIT 36 % (35-52); HEMOGLOBIN 11.7 G/DL (11.5-16.0); LYMPHOCYTES # (AUTO) 1.4 X 10^3 (1.0-4.0); LYMPHOCYTES % (AUTO) 17 % (12-44); MEAN CORPUSCULAR HEMOGLOBIN 31 PG (25-34); MEAN CORPUSCULAR HGB CONC 33 G/DL (32-36); MEAN CORPUSCULAR VOLUME 93 FL (80-99); MEAN PLATELET VOLUME 8.6 FL (7.4-10.4); MONOCYTES # (AUTO) 0.9 X 10^3 (0.0-1.0); MONOCYTES % (AUTO) 12 % (0-12); NEUTROPHILS # (AUTO) 5.5 X 10^3 (1.8-7.8); NEUTROPHILS % (AUTO) 71 % (42-75); PLATELET COUNT 283 10^3/uL (130-400); RED BLOOD COUNT 3.83 10^6/uL (4.35-5.85); RED CELL DISTRIBUTION WIDTH 14.9 % (10.0-14.5); WHITE BLOOD COUNT 7.8 10^3/uL (4.3-11.0)
[2018-01-26 06:19] LABS: ALANINE AMINOTRANSFERASE 11 U/L (0-55); ALBUMIN 3.7 GM/DL (3.2-4.5); ALKALINE PHOSPHATASE 75 U/L (40-136); BILIRUBIN,TOTAL 1.1 MG/DL (0.1-1.0); BUN/CREATININE RATIO 61; CALCIUM 9.4 MG/DL (8.5-10.1); CARBON DIOXIDE 39 MMOL/L (21-32); CHLORIDE 80 MMOL/L (98-107); CREATININE SERUM 0.84 MG/DL (0.60-1.30); GFR ESTIMATED > 60; GLUCOSE 93 MG/DL (70-105); MAGNESIUM 1.9 MG/DL (1.8-2.4); SODIUM 136 MMOL/L (135-145); TOTAL PROTEIN 6.5 GM/DL (6.4-8.2)
[2018-01-26 06:22] LABS: POTASSIUM 2.3 MMOL/L (3.6-5.0)
[2018-01-26] MEDS ORDERED: POTASSIUM CL 10MEQ/50ML IVPB 50 ML IV SCH (06:30)
[2018-01-26] MEDS ORDERED: POTASSIUM CL 10MEQ/50ML IVPB 250 ML IV ONE (06:39)
[2018-01-26] MEDS ORDERED: POTASSIUM CL 10MEQ/50ML IVPB 100 ML IV ONE (06:40)
[2018-01-26] MEDS: POTASSIUM CL 10MEQ/50ML IVPB 50 ML IV SCH ×6 (06:45→12:55)
[2018-01-26 08:00] VITALS: BP 127/70
[2018-01-26] MEDS: predniSONE 5 MG TAB PO SCH (08:12)
[2018-01-26] MEDS: POLYETHYLENE GLYCOL 17 GM (MIRALAX) PACK PO SCH ×2 (08:14→20:25)
--- NOTE | 2018-01-26 08:44 | Progress Note ---
Objective Exam Last Set of Vital Signs Vital Signs Date Time Temp Pulse Resp B/P (MAP) Pulse Ox O2 Delivery O2 Flow Rate FiO2 01/26/18 03:45 96.8 86 18 131/73 (92) 100 Nasal Cannula 2.00 Capillary Refill : Less Than 3 Seconds I&O Intake and Output 01/26/18 00:00 Intake Total 240 ml Output Total 650 ml Balance -410 ml Intake Oral 240 ml Output Urine Total 650 ml Daily Weight Change No Results Lab Laboratory Tests 01/25/18 17:07: White Blood Count 8.4, Red Blood Count 3.90L, Hemoglobin 11.7, Hematocrit 36, Mean Corpuscular Volume 92, Mean Corpuscular Hemoglobin 30, Mean Corpuscular Hemoglobin Concent 33, Red Cell Distribution Width 14.8H, Platelet Count 320, Mean Platelet Volume 8.6, Neutrophils (%) (Auto) 75, Lymphocytes (%) (Auto) 13, Monocytes (%) (Auto) 12, Eosinophils (%) (Auto) 0, Basophils (%) (Auto) 0, Neutrophils # (Auto) 6.3, Lymphocytes # (Auto) 1.1, Monocytes # (Auto) 1.0, Eosinophils # (Auto) 0.0, Basophils # (Auto) 0.0, Sodium Level 132L, Potassium Level 2.7L, Chloride Level 78L, Carbon Dioxide Level 37H, Anion Gap 17H, Blood Urea Nitrogen 62H, Creatinine 1.19, Estimat Glomerular Filtration Rate 43, BUN/ Creatinine Ratio 52, Glucose Level 134H, Calcium Level 9.6, Corrected Calcium 9.4, Magnesium Level 1.9, Total Bilirubin 1.1H, Aspartate Amino Transf (AST/SGOT ) 18, Alanine Aminotransferase (ALT/SGPT) 14, Alkaline Phosphatase 82, C- Reactive Protein High Sensitivity 0.49, Total Protein 7.5, Albumin 4.2, Lipase 26 01/25/18 17:32: Urine Color YELLOW, Urine Clarity CLEAR, Urine pH 7, Urine Specific [place] 1.005L, Urine Protein NEGATIVE, Urine Glucose (UA) NEGATIVE, Urine Ketones NEGATIVE, Urine Nitrite NEGATIVE, Urine Bilirubin NEGATIVE, Urine Urobilinogen NORMAL, Urine Leukocyte Esterase 2+H, Urine RBC (Auto) 3+H, Urine RBC 5-10H, Urine WBC 5-10H, Urine Squamous Epithelial Cells 0-2, Urine Crystals NONE, Urine Bacteria MODERATEH, Urine Casts NONE, Urine Mucus NEGATIVE, Urine Culture Indicated YES 01/26/18 05:45: White Blood Count 7.8, Red Blood Count 3.83L, Hemoglobin 11.7, Hematocrit 36, Mean Corpuscular Volume 93, Mean Corpuscular Hemoglobin 31, Mean Corpuscular Hemoglobin Concent 33, Red Cell Distribution Width 14.9H, Platelet Count 283, Mean Platelet Volume 8.6, Neutrophils (%) (Auto) 71, Lymphocytes (%) (Auto) 17, Monocytes (%) (Auto) 12, Eosinophils (%) (Auto) 0, Basophils (%) (Auto) 0, Neutrophils # (Auto) 5.5, Lymphocytes # (Auto) 1.4, Monocytes # (Auto) 0.9, Eosinophils # (Auto) 0.0, Basophils # (Auto) 0.0, Sodium Level 136, Potassium Level 2.3*L, Chloride Level 80L, Carbon Dioxide Level 39H, Anion Gap 17H, Blood Urea Nitrogen 51H, Creatinine 0.84, Estimat Glomerular Filtration Rate > 60, BUN /Creatinine Ratio 61, Glucose Level 93, Calcium Level 9.4, Corrected Calcium 9.6 , Magnesium Level 1.9, Total Bilirubin 1.1H, Aspartate Amino Transf (AST/SGOT) 16, Alanine Aminotransferase (ALT/SGPT) 11, Alkaline Phosphatase 75, Total Protein 6.5, Albumin 3.7 Clinical Quality Measures Admission Status Admission Dx OBSTIPATION HYPOCHLOREMIA HYPOKALEMIA CHRONIC PAIN SYNDROME CHRONIC STEROID USE CHRONIC EDEMA/LYMPHEDEMA DVT/VTE Risk/Contraindication: Risk Factor Score Per Nursin RFS Level Per Nursing on Admit: 4+=Very High WOODY CARBONE MD Jan 26, 2018 08:44
[2018-01-26] MEDS ORDERED: BISACODYL 10 MG SUPP (DULCOLAX) PR NR ×2 (08:45→14:21)
[2018-01-26] MEDS ORDERED: POTA10TA14 PO (09:00)
[2018-01-26] MEDS ORDERED: DICL100G18 TP (09:01)
[2018-01-26] MEDS ORDERED: METO10TA7 PO (09:01)
[2018-01-26] MEDS ORDERED: FURO40TA4 PO (09:01)
--- NOTE | 2018-01-26 11:27 | Physical Therapy Evaluation ---
PT Evaluation-General Medical Diagnosis Admission Date Jan 25, 2018 at 18:26 Medical Diagnosis: Hypokalemia, Acute Renal Failure Onset Date: Jan 25, 2018 Therapy Diagnosis Therapy Diagnosis: General weakness Height/Weight Height (Feet): 5 Height (Inches): 7.00 Weight (Pounds): 144 Weight (Ounces): 8.0 Precautions Precautions/Isolations: Fall Prevention, Standard Precautions Weight Bear Status Right Lower Extremity: Right Full Weight Bearing Left Lower Extremity: Left Full Weight Bearing Referral Physician: Araceli Silva MD Reason for Referral: Evaluation/Treatment Medical History Pertinent Medical History: Arthritis, GERD, HTN, Neuropathy, OA, Rheumatoid Arthritis, Smoking Current History Patient brought to ER by family with abdominal pain Reviewed History: Yes Social History Home: Single Level Current Living Status: Children Entry Into Home: Level Entry PT Steps Into Home: 0 PT Steps Inside Home: 0 Prior/Core FIM Prior Level of Function Functional [place] Measure 0=Not Assessed/NA 4=Minimal Assistance 1=Total Assistance 5=Supervision or Setup 2=Maximal Assistance 6=Modified [place] 3=Moderate Assistance 7=Complete [place] IRFPAI Quality Coding Scale 6 Independent with activity with or without an assistive device 5 Patient requires set up or clean up by helper. Patient completes activity by themselves 4 Supervision or touching assist (CGA). [place] provide cues , steadying assist 3 The helper provides less than half the effort to complete the activity 2 The helper provides more than half the effort to complete the activity 1 Dependent. The helper does all the effort to complete an activity 7 Patient refused to complete or attempt activity 9 The patient did not perform the activity before the current illness or injury 88 Not attempted due to Medical conditions or safety concerns Functional Abilities and Goals 3. Independent: Patient completed the activities by him/herself, with or without an assistive device, with no assistance from a helper. 2. Needed Some Help: Patient needed partial assistance from another person to complete activities. 1. Dependent: A helper completed the activities for the patient. 8. Unknown: 9. Not Applicable: Bed Mobility: 6 Transfers (B,C,W/C) (FIM): 6 Gait: 6 Indoor Mobility (Ambulation): Independent Stairs: Not [place] Prior Devices Use: Other-see list below Prior Device Use: cane PT Evaluation-Current Subjective Pt awake in bed when PT arrived. PT agreed to PT evaluation. Pain Numeric Pain Scale: 0-No Pain Location: No Pain Reported Objective Patient Orientation: Normal For Age Problem Solving: Good Attachments: Bradford Catheter, IV ROM/Strength ROM Upper Extremities WNL ROM Lower Extremities WNL Strength Upper Extremities WNL Strength Lower Extremities 4/5 BLE Integumentary/Posture Bowel Incontinence: No Bladder Incontinence: No Neuromuscular (Tone, Coordination, Reflexes) grossly intact Sensory Vision: Functional Hearing: Functional Sensation Right Upper Extremit: Intact Sensation Left Upper Extremity: Intact Sensation Right Lower Extremit: Intact Sensation Left Lower Extremity: Intact Transfers Functional [place] Measure 0=Not Assessed/NA 4=Minimal Assistance 1=Total Assistance 5=Supervision or Setup 2=Maximal Assistance 6=Modified [place] 3=Moderate Assistance 7=Complete [place] Transfers (B, C, W/C) (FIM): 4 Scootin Rollin Supine to/from Sit: 4 Sit to/from Stand: 4 Gait Mode of Locomotion: Walk Anticipated Mode of Locomotion: Walk Gait (FIM): 1 Distance (FIM): 1=up to 49 ft Distance: 5' Gait Level of Assist: 4 Gait Persons Needed: 1 Gait Assistive Device: FWW Balance Sitting Static: Good Sitting Dynamic: Good Standing Static: Good Standing Dynamic: Good Assessment/Needs Patient needed Min A throughout transfers from bed to bedside commode. Patient is able to stand well on her own but requires CGA when get up and stepping over to commode. Patient will continue with therapy to increase overall function for daily demands at home. Rehab Potential: Fair PT Mechanical Energy Engineer Goals Detention Goals PT Mechanical Energy Engineer Goals Time Frame: Feb 06, 2018 Transfers (B,C,W/C) (FIM): 6 Gait (FIM): 6 Gait distance (FIM): 3=150 ft Distance: 150' Gait Level of Assist: 6 Gait Assistive Device: FWW PT Plan Problem List Problem List: Activity Tolerance, Functional Strength, Safety, Balance, Gait, Transfer, Bed Mobility, ROM Treatment/Plan Treatment Plan: Continue Plan of Care Treatment Plan: Bed Mobility, Education, Functional Activity Shamika, Functional Strength, Gait, Safety, Therapeutic Exercise, Transfers, Other Treatment Duration: Feb 06, 2018 Frequency: 6 times per week Estimated Hrs Per Day: .25 hour per day Patient and/or Family Agrees t: Yes Discharge Recommendations Therapy D/C Recommendations: Home w/ Family Support Time/GCodes Time In: 1023 Time Out: 1034 Total Billed Treatment Time: 11 Total Billed Treatment 1 Visit EVLowC - 11' JAIMIE GOINS PT Jan 26, 2018 11:27
[2018-01-26 12:00] VITALS: BP 142/88
[2018-01-26] MEDS: DEXTROSE IV SCH ×2 (12:55)
[2018-01-26] MEDS: FUROSEMIDE IV SCH ×2 (12:55)
[2018-01-26] MEDS: NS IV 1000 ML 1,000 ML IV SCH (12:55)
--- NOTE | 2018-01-26 13:56 | Occ Therapy Progress Note ---
Therapy Progress Note Order received for OT eval and treat. Chart review completed. Attempted therapy at 1327. Pt resting in bed, states she just got an enema and is uncomfortable at this time. Pt requests to rest at this time, but states she would like to participate in therapy tomorrow. Will attempt OT evaluation tomorrow. 1, visit. SU GOMEZ OT Jan 26, 2018 13:56
[2018-01-26] MEDS ORDERED: LACTULOSE SYRUP 10GM/15ML (ENULOSE) 30ML UDC PO NR (14:15)
[2018-01-26 16:00] VITALS: BP 122/70
[2018-01-26] MEDS ORDERED: FLEET ENEMA ADULT 1 EA BTL PR NR (17:30)
[2018-01-26] MEDS: DILTIAZEM 180 MG (CARDIZEM CD) CAP PO SCH (18:03)
[2018-01-26 20:00] VITALS: BP 130/72
[2018-01-26] MEDS ORDERED: ONDANSETRON 4 MG (ZOFRAN) ORAL DISSOLVE TAB PO PRN (22:45)
[2018-01-27] VITALS: BP 134/64
[2018-01-27 04:00] VITALS: BP 118/66
[2018-01-27 06:29] LABS: BUN/CREATININE RATIO 53; CALCIUM 9.5 MG/DL (8.5-10.1); CARBON DIOXIDE 40 MMOL/L (21-32); CHLORIDE 81 MMOL/L (98-107); CREATININE SERUM 0.74 MG/DL (0.60-1.30); GFR ESTIMATED > 60; GLUCOSE 88 MG/DL (70-105); SODIUM 135 MMOL/L (135-145)
[2018-01-27] MEDS ORDERED: FUROSEMIDE 40 MG/4 ML INJ (LASIX) IVP ONE (07:30)
[2018-01-27] MEDS ORDERED: KCL 20 MEQ TAB (K-DUR) PO ONE (07:30)
[2018-01-27] MEDS: FENTANYL 100 MCG PATCH REMOVAL TP SCH (08:41)
[2018-01-27] MEDS: DILTIAZEM 180 MG (CARDIZEM CD) CAP PO SCH (08:42)
[2018-01-27] MEDS: POLYETHYLENE GLYCOL 17 GM (MIRALAX) PACK PO SCH ×2 (08:42→20:27)
--- NOTE | 2018-01-27 08:42 | Progress Note ---
Subjective Date Seen by a Provider: Jan 27, 2018 Time Seen by a Provider: 08:40 Subjective/Events-last exam PT REPORTS THAT SHE IS STILL HAVING ABDOMINAL PAIN SHE HAS NOT PASSED MUCH BEYOND LIQUID/MUCUS SHE IS HAVING A LOT OF JOINT PAIN WELL. SHE DENIES NAUSEA Review of Systems General: No Chills; Fatigue HEENT: No Head Aches Pulmonary: No Dyspnea, No Cough Cardiovascular: No: Chest Pain, Palpitations Gastrointestinal: Abdominal Pain, Constipation; No: Nausea Genitourinary: Other (MANDUJANO IN PLACE) Musculoskeletal: neck pain, arm pain, back pain Neurological: Weakness Objective Exam Last Set of Vital Signs Vital Signs Date Time Temp Pulse Resp B/P (MAP) Pulse Ox O2 Delivery O2 Flow Rate FiO2 01/27/18 04:00 97.7 88 20 118/66 (83) 99 Nasal Cannula 2.00 Capillary Refill : Less Than 3 Seconds I&O Intake and Output 01/27/18 00:00 Intake Total 3080 ml Output Total 5050 ml Balance -1970 ml Intake Oral 1900 ml IV Total 1180 ml Output Urine Total 5050 ml # Bowel Movements 13 General: Alert, Oriented X3, Cooperative, No Acute Distress HEENT: PERRLA Neck: Supple Lungs: Clear to Auscultation Heart: Regular Rate Abdomen: Normal Bowel Sounds, Other (SOFT, TTP DIFFUSELY) Extremities: No Cyanosis, Other (SWELLING OF FINGERS, METACARPALS TTP) Skin: No Breakdown, Other Neuro: Cranial Nerves 3-12 NL Psych/Mental Status: Mental Status NL, Mood NL Results Lab Laboratory Tests 01/27/18 05:41: Sodium Level 135, Potassium Level 2.0*L, Chloride Level 81L, Carbon Dioxide Level 40H, Anion Gap 14, Blood Urea Nitrogen 39H, Creatinine 0.74, Estimat Glomerular Filtration Rate > 60, BUN/Creatinine Ratio 53, Glucose Level 88, Calcium Level 9.5 Microbiology 01/25/18 Urine Culture - Final, Complete See Report Assessment/Plan Assessment/Plan Assess & Plan/Chief Complaint OBSTIPATION HYPOCHLOREMIA HYPOKALEMIA CHRONIC PAIN SYNDROME CHRONIC STEROID USE CHRONIC EDEMA/LYMPHEDEMA OBSTIPATION - RELISTOR TO BE GIVEN EVERY OTHER DAY,- AND PATIENT TO BE GIVEN AN ENEMA FOR TREATMENT OF OBSTIPATION AND START ON MIRALAX. HYPOCHLOREMIA AND HYPOKALEMIA - IV POTASSIUM AND NORMAL SALINE CHRONIC PAIN SYNDROME - CONTINUE WITH FENTANYL PATCHES CHRONIC STEROID USE - CONTINUE WITH PREDNISONE ORALLY CHRONIC EDEMA/LYMPHEDEMA - LASIX DRIP - DECREASE DOSE Clinical Quality Measures Admission Status Admission Dx OBSTIPATION HYPOCHLOREMIA HYPOKALEMIA CHRONIC PAIN SYNDROME CHRONIC STEROID USE CHRONIC EDEMA/LYMPHEDEMA DVT/VTE Risk/Contraindication: Risk Factor Score Per Nursin RFS Level Per Nursing on Admit: 4+=Very High WOODY CARBONE MD Jan 27, 2018 08:42
[2018-01-27] MEDS: fentaNYL PATCH 100 MCG (DURAGESIC) TD SCH (08:44)
[2018-01-27 08:49] VITALS: BP 121/65
[2018-01-27] MEDS: predniSONE 5 MG TAB PO SCH (08:53)
[2018-01-27] MEDS ORDERED: DILTIAZEM 180 MG (CARDIZEM CD) CAP PO SCH (09:00)
[2018-01-27] MEDS ORDERED: NON-FORMULARY MEDICATION 1 EA EA (Diltiazem HCl (Diltiazem 24Hr ER) 360 MG) PO SCH (09:00)
[2018-01-27] MEDS: METHYLNALTREXONE 12 MG/0.6 ML (RELISTOR) VIAL SQ SCH (09:05)
--- NOTE | 2018-01-27 09:25 | Physical Therapy Progress Note ---
Therapy Progress Note Attempted PT visit at this time. Pt declined noting significant abdominal pain. Pt verbally reports that her stomach hurts and her facial expression confirms. Nurse Aide present assisting pt at this time as well. Will attempt PT later. 9:20 am. ORA REZA PT Jan 27, 2018 09:25
--- NOTE | 2018-01-27 09:59 | Diagnostic Imaging Report ---
INDICATION: Followup fecal impaction. TIME OF EXAM: 9:00 AM COMPARISON: Comparison is made with CT study performed on 01/25/2018. FINDINGS: There has been significant reduction in the stool load when compared with CT two days earlier. No significant residual stool is seen. Bowel gas pattern is nonobstructing. No pathologic calcifications are seen. There is no free air. Extensive spinal instrumentation lower thoracic and lumbar spine extending into the pelvis is noted. IMPRESSION: Significant stool evacuation since CT study two days earlier. Dictated by: Dictated on workstation # [id number]
--- NOTE | 2018-01-27 10:07 | Physical Therapy Daily Note ---
PT Daily Note-Current Subjective Pt needed to get up to the commode. Mental Status Patient Orientation: Person, Place, Time, Situation Transfers Functional [place] Measure 0=Not Assessed/NA 4=Minimal Assistance 1=Total Assistance 5=Supervision or Setup 2=Maximal Assistance 6=Modified [place] 3=Moderate Assistance 7=Complete [place] IRFPAI Quality Coding Scale 6 Independent with activity with or without an assistive device 5 Patient requires set up or clean up by helper. Patient completes activity by themselves 4 Supervision or touching assist (CGA). [place] provide cues , steadying assist 3 The helper provides less than half the effort to complete the activity 2 The helper provides more than half the effort to complete the activity 1 Dependent. The helper does all the effort to complete an activity 7 Patient refused to complete or attempt activity 9 The patient did not perform the activity before the current illness or injury 88 Not attempted due to Medical conditions or safety concerns Transfers (B, C, W/C) (FIM): 3 Supine to/from Sit: 3 Sit to/from Stand: 3 Pt transferred bed to from commode with FWW with mod assist to come to a stand but CGA for turning. Pt toileted. Dependent christin care. Large amounts of loose stool. Weight Bearing Right Lower Extremity: Right Full Weight Bearing Left Lower Extremity: Left Full Weight Bearing Treatments Transfers bed to commode and back. Pt comfortable after visit. Pt feeling better after BM> Assessment Weak. incontinent of bowel. needs assist with mobilty mainly due to not feeling well at all this date. PT Senior Materials Analyst Goals Senior Materials Analyst Goals PT Detention Goals Time Frame: Feb 06, 2018 Transfers (B,C,W/C) (FIM): 6 Gait (FIM): 6 Gait distance (FIM): 3=150 ft Distance: 150' Gait Level of Assist: 6 Gait Assistive Device: FWW PT Plan Problem List Problem List: Activity Tolerance, Functional Strength, Safety, Balance, Gait, Transfer Treatment/Plan Treatment Plan: Continue Plan of Care Treatment Plan: Bed Mobility, Education, Functional Activity Shamika, Functional Strength, Gait, Safety, Therapeutic Exercise, Transfers, Other Treatment Duration: Feb 06, 2018 Frequency: 6 times per week Estimated Hrs Per Day: .25 hour per day Patient and/or Family Agrees t: Yes Safety Risks/Education Patient Education: Safety Issues Teaching Recipient: Patient Teaching Methods: Discussion Response to Teaching: Reinforcement Needed Time/GCodes Time In: 940 Time Out: 1005 Total Billed Treatment Time: 25 Total Billed Treatment visit FA 25 ORA REZA PT Jan 27, 2018 10:07
--- NOTE | 2018-01-27 11:10 | Occ Therapy Progress Note ---
Therapy Progress Note 1017 Pt seen in room, up in bed. Declined OT because she said that she just had a large BM and was too fatigued for OT. Will follow. JS PEREZ OT Jan 27, 2018 11:10
[2018-01-27 12:11] VITALS: BP 132/70
[2018-01-27] MEDS: NS IV 1000 ML 1,000 ML IV SCH (13:33)
[2018-01-27 15:04] LABS: BUN/CREATININE RATIO 48; CALCIUM 9.7 MG/DL (8.5-10.1); CARBON DIOXIDE 37 MMOL/L (21-32); CHLORIDE 82 MMOL/L (98-107); GFR ESTIMATED > 60; GLUCOSE 124 MG/DL (70-105); POTASSIUM 2.9 MMOL/L (3.6-5.0); SODIUM 135 MMOL/L (135-145)
[2018-01-27 16:00] VITALS: BP 115/62
[2018-01-27 20:14] VITALS: BP 115/66
[2018-01-28] VITALS (7 sets, daily range): BP systolic 107–130; BP diastolic 60–65
[2018-01-28 05:53] LABS: BUN/CREATININE RATIO 50; CALCIUM 8.8 MG/DL (8.5-10.1); CARBON DIOXIDE 36 MMOL/L (21-32); CHLORIDE 84 MMOL/L (98-107); CREATININE SERUM 0.88 MG/DL (0.60-1.30); GFR ESTIMATED > 60; GLUCOSE 110 MG/DL (70-105); SODIUM 133 MMOL/L (135-145)
[2018-01-28 06:10] LABS: POTASSIUM 2.5 MMOL/L (3.6-5.0)
[2018-01-28] MEDS ORDERED: KCL 20 MEQ TAB (K-DUR) PO ONE (06:45)
[2018-01-28] MEDS: FENTANYL 25 MCG PATCH REMOVAL TP SCH (09:18)
[2018-01-28] MEDS: predniSONE 5 MG TAB PO SCH (09:20)
[2018-01-28] MEDS: DILTIAZEM 180 MG (CARDIZEM CD) CAP PO SCH (09:21)
[2018-01-28] MEDS: fentaNYL PATCH 25 MCG (DURAGESIC) TD SCH (09:22)
[2018-01-28] MEDS: POLYETHYLENE GLYCOL 17 GM (MIRALAX) PACK PO SCH ×2 (09:22→20:10)
[2018-01-28] MEDS: NS IV 1000 ML 1,000 ML IV SCH (09:29)
--- NOTE | 2018-01-28 09:38 | Progress Note ---
Subjective Date Seen by a Provider: Jan 28, 2018 Time Seen by a Provider: 09:30 Subjective/Events-last exam PT REPORTS SOME BOWEL MOVEMENTS YESTERDAY - AND AGAIN LATER IN THE MORNING HAD A LARGE BOWEL MOVEMENT "LIKE GIVING ". SHE REPORTS SHE IS NOW HAVING A LOT OF LIQUID STOOLS Review of Systems General: No Chills; Fatigue HEENT: No Head Aches Pulmonary: No Dyspnea, No Cough Cardiovascular: No: Chest Pain, Palpitations Gastrointestinal: Abdominal Pain; No: Nausea Genitourinary: No Dysuria Neurological: Weakness Objective Exam Last Set of Vital Signs Vital Signs Date Time Temp Pulse Resp B/P (MAP) Pulse Ox O2 Delivery O2 Flow Rate FiO2 01/28/18 08:00 97.4 90 16 112/61 (78) 95 Nasal Cannula 2.00 Capillary Refill : Less Than 3 Seconds I&O Intake and Output 01/28/18 00:00 Intake Total 1447 ml Output Total 2402 ml Balance -955 ml Intake Oral 1447 ml Output Urine Total 2400 ml Stool Total 2 ml # Bowel Movements 3 General: Alert, Oriented X3, Cooperative, Mild Distress (DUE TO ABDOMINAL PAIN) HEENT: Atraumatic, PERRLA Neck: Supple Lungs: Clear to Auscultation Heart: Regular Rate Abdomen: Normal Bowel Sounds, Soft Psych/Mental Status: Mental Status NL, Mood NL Results Lab Laboratory Tests 01/27/18 14:39: Sodium Level 135, Potassium Level 2.9L, Chloride Level 82L, Carbon Dioxide Level 37H, Anion Gap 16H, Blood Urea Nitrogen 38H, Creatinine 0.80, Estimat Glomerular Filtration Rate > 60, BUN/Creatinine Ratio 48, Glucose Level 124H, Calcium Level 9.7 01/28/18 04:40: Sodium Level 133L, Potassium Level 2.5*L, Chloride Level 84L, Carbon Dioxide Level 36H, Anion Gap 13, Blood Urea Nitrogen 44H, Creatinine 0.88, Estimat Glomerular Filtration Rate > 60, BUN/Creatinine Ratio 50, Glucose Level 110H, Calcium Level 8.8 Microbiology 01/25/18 Urine Culture - Final, Complete See Report Assessment/Plan Assessment/Plan Assess & Plan/Chief Complaint OBSTIPATION HYPOCHLOREMIA HYPOKALEMIA CHRONIC PAIN SYNDROME CHRONIC STEROID USE CHRONIC EDEMA/LYMPHEDEMA OBSTIPATION - RELISTOR TO BE GIVEN EVERY OTHER DAY, STARTED ON MIRALAX, ENEMAS NOT SUCCESSFUL, PT HAS PASSED SOME STOOLS, OF LATER YESTERDA HAS FINALLY PASSED LARGE AMOUNT OF STOOL. HYPOCHLOREMIA AND HYPOKALEMIA -LABS STILL LOW IV POTASSIUM AND NORMAL SALINE CHRONIC PAIN SYNDROME - CONTINUE WITH FENTANYL PATCHES CHRONIC STEROID USE - CONTINUE WITH PREDNISONE ORALLY CHRONIC EDEMA/LYMPHEDEMA - STOPPED DRIP THIS MORNING. Clinical Quality Measures Admission Status Admission Dx OBSTIPATION HYPOCHLOREMIA HYPOKALEMIA CHRONIC PAIN SYNDROME CHRONIC STEROID USE CHRONIC EDEMA/LYMPHEDEMA DVT/VTE Risk/Contraindication: Risk Factor Score Per Nursin RFS Level Per Nursing on Admit: 4+=Very High WOODY CARBONE MD Jan 28, 2018 09:38
--- NOTE | 2018-01-28 11:23 | Physical Therapy Daily Note ---
PT Daily Note-Current Subjective Pt awake in bed watching tv when PT entered room. Pt agreed to perform exercises for PT. Pain Numeric Pain Scale: 0-No Pain Mental Status Patient Orientation: Normal For Age Attachments: Bradford Catheter, IV Transfers Functional [place] Measure 0=Not Assessed/NA 4=Minimal Assistance 1=Total Assistance 5=Supervision or Setup 2=Maximal Assistance 6=Modified [place] 3=Moderate Assistance 7=Complete [place] IRFPAI Quality Coding Scale 6 Independent with activity with or without an assistive device 5 Patient requires set up or clean up by helper. Patient completes activity by themselves 4 Supervision or touching assist (CGA). [place] provide cues , steadying assist 3 The helper provides less than half the effort to complete the activity 2 The helper provides more than half the effort to complete the activity 1 Dependent. The helper does all the effort to complete an activity 7 Patient refused to complete or attempt activity 9 The patient did not perform the activity before the current illness or injury 88 Not attempted due to Medical conditions or safety concerns Weight Bearing Right Lower Extremity: Right Full Weight Bearing Left Lower Extremity: Left Full Weight Bearing Exercises Supine Ex: Quad Set, Heel Slides, Knee to chest, Straight leg raise Supine Reps: 15 Assessment Pt refused to get up and transfer to chair but agreed to exercises. Pt performed LE exercises in bed and stated she is doing these on her own as well. Pt will continue therapy to maintain current level of function. PT Senior Living Goals Senior Living Goals PT Wood Cabinetmaker Goals Time Frame: Feb 06, 2018 Transfers (B,C,W/C) (FIM): 6 Gait (FIM): 6 Gait distance (FIM): 3=150 ft Distance: 150' Gait Level of Assist: 6 Gait Assistive Device: FWW PT Plan Problem List Problem List: Activity Tolerance, Functional Strength, Balance, Transfer, Bed Mobility Treatment/Plan Treatment Plan: Continue Plan of Care Treatment Plan: Bed Mobility, Education, Functional Activity Shamika, Functional Strength, Gait, Safety, Therapeutic Exercise, Transfers, Other Treatment Duration: Feb 06, 2018 Frequency: 6 times per week Estimated Hrs Per Day: .25 hour per day Patient and/or Family Agrees t: Yes Time/GCodes Time In: 1104 Time Out: 1114 Total Billed Treatment Time: 10 Total Billed Treatment 1 Visit EX - 10' JAIMIE GOINS PT Jan 28, 2018 11:23
--- NOTE | 2018-01-28 14:15 | Occupational Therapy Eval ---
OT Evaluation-General/PLF Medical Diagnosis Admission Date Jan 25, 2018 at 18:26 Medical Diagnosis: Hypokalemia, Acute Renal Failure, abdominal pain Onset Date: Jan 25, 2018 Therapy Diagnosis Therapy Diagnosis: decr self care, decr functional mobility Height/Weight Height (Feet): 5 Height (Inches): 7.00 Weight (Pounds): 140 Weight (Ounces): 8.0 Precautions Precautions/Isolations: Fall Prevention, Standard Precautions Safety Interventions: None Referral Physician: Araceli Silva MD Referral Reason: Evaluation/Treatment Medical History Pertinent Medical History: Arthritis, GERD, HTN, Neuropathy, OA, Rheumatoid Arthritis, Smoking Additional Medical History 6 back surgeries. 3 total knees. Obstructive bowel 2016. Irritable bowel. DDD. Fibromyalgia. Chronic back pain. Lymphedema in LEs. Chronic pain syndrome. Scoliosis. Current History Admitted with abdominal pain, nausea/vomiting. Social History Home: Multilevel (lives in basement of daughter's house) Current Living Status: Children Entry Into Home: Level Entry Steps Into Home: 0 Steps Inside Home: 0 Other Obstacles: Lift chair to main level ADL-Prior Level of Function Functional [place] Measure 0=Not Assessed/NA 4=Minimal Assistance 1=Total Assistance 5=Supervision or Setup 2=Maximal Assistance 6=Modified [place] 3=Moderate Assistance 7=Complete [place] IRFPAI Quality Coding Scale 6 Independent with activity with or without an assistive device 5 Patient requires set up or clean up by helper. Patient completes activity by themselves 4 Supervision or touching assist (CGA). [place] provide cues , steadying assist 3 The helper provides less than half the effort to complete the activity 2 The helper provides more than half the effort to complete the activity 1 Dependent. The helper does all the effort to complete an activity 7 Patient refused to complete or attempt activity 9 The patient did not perform the activity before the current illness or injury 88 Not attempted due to Medical conditions or safety concerns Functional Abilities and Goals 3. Independent: Patient completed the activities by him/herself, with or without an assistive device, with no assistance from a helper. 2. Needed Some Help: Patient needed partial assistance from another person to complete activities. 1. Dependent: A helper completed the activities for the patient. 8. Unknown: 9. Not Applicable: ADL PLOF Comments Pt wears neck brace and shoulder brace due to RA and joint stiffness. Has help to wrap legs twice a day. She is able to sponge bathe herself but her daughter and caregiver help her dress. She does not drive. She sleeps in a lift chair and uses a rolling walker. She also has stool riser and grab bar. Self Care: Needed Some Help Functional Cognition: Independent OT Current Status Subjective Pt seen in room, up in bed, agreeable to OT. When asked about pain, she replied , "I'm always in pain." Appearance Alert, cooperative Mental Status/Objective Patient Orientation: Person, Place, Time, Situation Attachments: Central Line, [place] Catheter Current Hand Dominance: Right Upper Extremity ROM Pt is able to use both arms elbow and distal but limited to approx 45 degrees shoulder flex/abd. Arthritic changes in hands Upper Extremity Coordination Impaired due to RA Upper Extremity Strength Grossly 3/5 bilat Edema: In LEs, managed by wraps ADL-Treatment ADL-Current Discussion with patient about her OT needs. She is anticipating going home tomorrow and believed that she has everything that she needs in her apartment. She was excited about getting a new power chair/scooter and a ramp for her van. She was planning on getting up shortly to go for a walk. She was not able to identify any skilled OT needs for this stay. OT suggested pt might investigate paraffin treatment for hand pain and limited range. Functional [place] Measure 0=Not Assessed/NA 4=Minimal Assistance 1=Total Assistance 5=Supervision or Setup 2=Maximal Assistance 6=Modified [place] 3=Moderate Assistance 7=Complete [place] IRFPAI Quality Coding Scale 6 Independent with activity with or without an assistive device 5 Patient requires set up or clean up by helper. Patient completes activity by themselves 4 Supervision or touching assist (CGA). [place] provide cues , steadying assist 3 The helper provides less than half the effort to complete the activity 2 The helper provides more than half the effort to complete the activity 1 Dependent. The helper does all the effort to complete an activity 7 Patient refused to complete or attempt activity 9 The patient did not perform the activity before the current illness or injury 88 Not attempted due to Medical conditions or safety concerns Education OT Patient Education: Purpose of tx/functional activities, Rehab process Teaching Recipient: Patient Teaching Methods: Discussion Response to Teaching: Verbalize Understanding OT Education/Plan Problem List/Assessment Assessment: No Skilled OT Needs ID'd No skilled OT needs identified for this stay. pt anticipates DC to home tomorrow. Discharge Recommendations Plan/Recommendations: Discontinue OT Treatment Plan/Plan of Care Treatment,Training & Education: No Patient would benefit from OT for education, treatment and training to promote independence in ADL's, mobility, safety and/or upper extremity function for ADL' s. Treatment Duration: Jan 28, 2018 Frequency: 1 time per week Estimated Hrs Per Day: Other Agreement: Yes Rehab Potential: Fair Time/GCodes Start Time: 13:38 Stop Time: 13:57 Total Time Billed (hr/min): 19 Billed Treatment Time visit, 19 minutes evaluation low intensity JS PEREZ OT Jan 28, 2018 14:15
[2018-01-28] MEDS ORDERED: KCL 20 MEQ TAB (K-DUR) PO NR (16:00)
[2018-01-29] MEDS: NS IV 1000 ML 1,000 ML IV SCH ×2 (03:19→23:13)
[2018-01-29 04:09] VITALS: BP 110/70
[2018-01-29 06:14] LABS: BUN/CREATININE RATIO 55; CARBON DIOXIDE 31 MMOL/L (21-32); CHLORIDE 90 MMOL/L (98-107); CREATININE SERUM 0.86 MG/DL (0.60-1.30); GFR ESTIMATED > 60; GLUCOSE 106 MG/DL (70-105); POTASSIUM 4.2 MMOL/L (3.6-5.0); SODIUM 132 MMOL/L (135-145)
[2018-01-29] MEDS: KCL 20 MEQ TAB (K-DUR) PO SCH (06:14)
[2018-01-29 08:00] VITALS: BP 112/68
[2018-01-29] MEDS: predniSONE 5 MG TAB PO SCH (08:21)
[2018-01-29] MEDS: METHYLNALTREXONE 12 MG/0.6 ML (RELISTOR) VIAL SQ SCH (08:22)
[2018-01-29] MEDS: DILTIAZEM 180 MG (CARDIZEM CD) CAP PO SCH (08:23)
[2018-01-29] MEDS: POLYETHYLENE GLYCOL 17 GM (MIRALAX) PACK PO SCH (08:27)
--- NOTE | 2018-01-29 11:19 | Physical Therapy Daily Note ---
PT Daily Note-Current Subjective Pt awake in room and agreed to perform exercises for PT. Pt reported she did not want to walk currently and that she had been getting up on her own. Pain Numeric Pain Scale: 0-No Pain Location: No Pain Reported Mental Status Patient Orientation: Normal For Age Attachments: IV Transfers Therapy Code Descriptions/Definitions Functional [place] Measure: 0=Not Assessed/NA 4=Minimal Assistance 1=Total Assistance 5=Supervision or Setup 2=Maximal Assistance 6=Modified [place] 3=Moderate Assistance 7=Complete [place] Therapy Quality Codes: 6 Independent with activity with or without an assistive device 5 Patient requires set up or clean up by helper. Patient completes activity by themselves 4 Supervision or touching assist (CGA). [place] provide cues , steadying assist 3 The helper provides less than half the effort to complete the activity 2 The helper provides more than half the effort to complete the activity 1 Dependent. The helper does all the effort to complete an activity 7 Patient refused to complete or attempt activity 9 The patient did not perform the activity before the current illness or injury 88 Not attempted due to Medical conditions or safety concerns Weight Bearing Right Lower Extremity: Right Full Weight Bearing Left Lower Extremity: Left Full Weight Bearing Exercises Supine Ex: Quad Set, Knee to chest, Straight leg raise, Hip abd/add Supine Reps: 20 Assessment Pt performed LE while in bed for PT. Pt stated that the exercises due challenge her and that she continues to do them independently as well later on in the day. Pt will continue PT to maintain current level of function. PT Short Term Goals Short Term Goals Time Frame: Jan 29, 2018 PT Wardrobe Specialist Goals [facility] Goals PT [facility] Goals Time Frame: Feb 06, 2018 Transfers (B,C,W/C) (FIM): 6 Gait (FIM): 6 Gait distance (FIM): 3=150 ft Distance: 150' Gait Level of Assist: 6 Gait Assistive Device: FWW PT Plan Problem List Problem List: Activity Tolerance, Functional Strength, Safety, Balance, Gait, Transfer Treatment/Plan Treatment Plan: Continue Plan of Care Treatment Plan: Bed Mobility, Education, Functional Activity Shamika, Functional Strength, Gait, Safety, Therapeutic Exercise, Transfers, Other Treatment Duration: Feb 06, 2018 Frequency: 6 times per week Estimated Hrs Per Day: .25 hour per day Patient and/or Family Agrees t: Yes Time/GCodes Time In: 1051 Time Out: 1101 Total Billed Treatment Time: 10 Total Billed Treatment 1 Visit EX - 10' JAIMIE GOINS PT Jan 29, 2018 11:19
--- NOTE | 2018-01-29 11:42 | Progress Note ---
Subjective Date Seen by a Provider: Jan 29, 2018 Time Seen by a Provider: 11:00 Subjective/Events-last exam PT REPORTS THAT SHE IS FEELING A LITTLE BETTER, BUT SHE HAD ANOTHER LARGE LIQUID STOOL THIS MORNING AND IS FEELING WORN OUT FROM THE EXCESSIVE STOOL OUTPUT NOW. SHE REPORTS THAT SHE HAS SUCH SEVERE PAIN IN HER HANDS THAT SHE CANNOT HELP HERSELF OUT AT HOME AND CANNOT GO HOME UNABLE TO WIPE HERSELF OR TEND TO HER OWN NEEDS WITH THE EXCESSIVE SOILAGE AND HER HANDS HURTING TOO BAD TO KEEP HERSELF CLEAN Review of Systems General: Fatigue HEENT: No Head Aches Pulmonary: No Dyspnea, No Cough Cardiovascular: No: Chest Pain, Palpitations Gastrointestinal: Diarrhea; No: Abdominal Pain Musculoskeletal: arm pain, back pain, hand pain Neurological: Weakness Objective Exam Last Set of Vital Signs Vital Signs Date Time Temp Pulse Resp B/P (MAP) Pulse Ox O2 Delivery O2 Flow Rate FiO2 01/29/18 08:35 99 Room Air 01/29/18 07:00 75 01/29/18 04:09 96.8 16 110/70 (83) 2.00 Capillary Refill : Less Than 3 Seconds I&O Intake and Output 01/29/18 00:00 Intake Total 1645 ml Output Total 675 ml Balance 970 ml Intake Oral 1645 ml Output Urine Total 675 ml # Bowel Movements 3 General: Alert, Oriented X3, Cooperative, No Acute Distress HEENT: Atraumatic, PERRLA Neck: Supple, No JVD Lungs: Clear to Auscultation Heart: Regular Rate Abdomen: Normal Bowel Sounds, Soft, No Tenderness Extremities: Other (SWELLING OF FINGERS AND MCP'S) Neuro: Normal Speech Psych/Mental Status: Mental Status NL, Mood NL Results Lab Laboratory Tests 01/29/18 05:35: Sodium Level 132L, Potassium Level 4.2, Chloride Level 90L, Carbon Dioxide Level 31, Anion Gap 11, Blood Urea Nitrogen 47H, Creatinine 0.86, Estimat Glomerular Filtration Rate > 60, BUN/Creatinine Ratio 55, Glucose Level 106H, Calcium Level 9.0 Microbiology 01/25/18 Urine Culture - Final, Complete See Report Assessment/Plan Assessment/Plan Assess & Plan/Chief Complaint OBSTIPATION HYPOCHLOREMIA HYPOKALEMIA CHRONIC PAIN SYNDROME CHRONIC STEROID USE CHRONIC EDEMA/LYMPHEDEMA OBSTIPATION - RELISTOR STOPPED TODAY, DC MIRALAX THE OBSTIPATION IS NOW RESOLVED. HYPOCHLOREMIA AND HYPOKALEMIA - IMPROVED - MONITOR SYMPTOMS. CHRONIC PAIN SYNDROME - CONTINUE WITH FENTANYL PATCHES CHRONIC STEROID USE - CONTINUE WITH PREDNISONE ORALLY CHRONIC EDEMA/LYMPHEDEMA - LASIX STOPPED WHEN DISCHARGED HOME WILL NEED MORE POTASSIUM Clinical Quality Measures Admission Status Admission Dx OBSTIPATION HYPOCHLOREMIA HYPOKALEMIA CHRONIC PAIN SYNDROME CHRONIC STEROID USE CHRONIC EDEMA/LYMPHEDEMA DVT/VTE Risk/Contraindication: Risk Factor Score Per Nursin RFS Level Per Nursing on Admit: 4+=Very High WOODY CARBONE MD Jan 29, 2018 11:42
[2018-01-29] MEDS ORDERED: methylPREDNISolone 125 MG (Solu-MEDROL) VIAL IM NR (11:45)
[2018-01-29 12:00] VITALS: BP 128/68
[2018-01-29] MEDS: LACTOBACILLUS ACIDOPHILUS (PROBIOTIC) CAPSULE PO SCH ×2 (12:03→16:57)
[2018-01-29 16:10] VITALS: BP 134/70
[2018-01-29 20:00] VITALS: BP 110/76
[2018-01-30] VITALS: BP 147/74
[2018-01-30 04:00] VITALS: BP 122/75
[2018-01-30] MEDS: LACTOBACILLUS ACIDOPHILUS (PROBIOTIC) CAPSULE PO SCH ×3 (06:22→16:59)
[2018-01-30] MEDS: KCL 20 MEQ TAB (K-DUR) PO SCH (06:22)
[2018-01-30 08:00] VITALS: BP 120/68
[2018-01-30] MEDS: fentaNYL PATCH 100 MCG (DURAGESIC) TD SCH (08:30)
[2018-01-30] MEDS: predniSONE 5 MG TAB PO SCH (08:30)
[2018-01-30] MEDS: DILTIAZEM 180 MG (CARDIZEM CD) CAP PO SCH (08:30)
[2018-01-30] MEDS: FENTANYL 100 MCG PATCH REMOVAL TP SCH (08:31)
--- NOTE | 2018-01-30 08:42 | Physical Therapy Daily Note ---
PT Daily Note-Current Subjective Pt states she is doing ok this morning. States she normally wears a back brace but has been misplaced since being in the hospital. Assures that she is ok getting up and walking without it for right now. Pain Numeric Pain Scale: 6 Comment: all over pain from rheumatoid arthritis and many past surgeries Appearance Pt supine in bed with head elevated upon arrival. Pt supine in bed with nursing present and call light within reach at end of PT session Mental Status Attachments: IV soft neck collar Transfers Therapy Code Descriptions/Definitions Functional [place] Measure: 0=Not Assessed/NA 4=Minimal Assistance 1=Total Assistance 5=Supervision or Setup 2=Maximal Assistance 6=Modified [place] 3=Moderate Assistance 7=Complete [place] Therapy Quality Codes: 6 Independent with activity with or without an assistive device 5 Patient requires set up or clean up by helper. Patient completes activity by themselves 4 Supervision or touching assist (CGA). [place] provide cues , steadying assist 3 The helper provides less than half the effort to complete the activity 2 The helper provides more than half the effort to complete the activity 1 Dependent. The helper does all the effort to complete an activity 7 Patient refused to complete or attempt activity 9 The patient did not perform the activity before the current illness or injury 88 Not attempted due to Medical conditions or safety concerns Transfers (B, C, W/C) (FIM): 5 Scootin Rollin Supine to/from Sit: 5 Sit to/from Stand: 6 increased pain with all transitions, has less pain with assist but is able to perform without, Requiring verb inst x1 for safety and hand placement sit to stand bed to FWW Weight Bearing Right Lower Extremity: Right Full Weight Bearing Left Lower Extremity: Left Full Weight Bearing Gait Training Distance (FIM): 3=150 ft Distance: 156 Gait Level of Assist: 6 Gait Persons Needed: 1 Gait Assistive Device: FWW slight kyphotic posture and forward head, soft cervical collar, slow pace, safe turns Treatments transfer and gait training Assessment Current Status: Good Progress PT Short Term Goals Short Term Goals Time Frame: Jan 29, 2018 PT Underlay Stitcher Goals Underlay Stitcher Goals PT Underlay Stitcher Goals Time Frame: Feb 06, 2018 Transfers (B,C,W/C) (FIM): 6 Gait (FIM): 6 Gait distance (FIM): 3=150 ft Distance: 150' Gait Level of Assist: 6 Gait Assistive Device: FWW PT Plan Problem List Problem List: Activity Tolerance, Functional Strength, Safety, Gait, Transfer, Bed Mobility Treatment/Plan Treatment Plan: Continue Plan of Care Treatment Plan: Bed Mobility, Education, Functional Activity Shamika, Functional Strength, Gait, Safety, Therapeutic Exercise, Transfers, Other Treatment Duration: Feb 06, 2018 Frequency: 6 times per week Estimated Hrs Per Day: .25 hour per day Patient and/or Family Agrees t: Yes Safety Risks/Education Patient Education: Gait Training, Transfer Techniques, Safety Issues Teaching Recipient: Patient Teaching Methods: Discussion Response to Teaching: Verbalize Understanding Time/GCodes Time In: 815 Time Out: 834 Total Billed Treatment Time: 19 Total Billed Treatment 1 Visit GT x1 AYAH BURTON VENTILATING ENGINEER Jan 30, 2018 08:42
[2018-01-30 12:00] VITALS: BP 129/66
--- NOTE | 2018-01-30 12:26 | Progress Note-Hospitalist ---
Subjective HPI/CC On Admission Date Seen by Provider: Jan 30, 2018 Time Seen by Provider: 11:30 Subjective/Events-last exam Still having explosive diarrhea but down to 2 a day Very fearful about going home with all the diarrhea Will start Questran and Imodium Hypokalemia is now resolved Becomes tearful with the mere thought of returning back home so she may be better served in an assisted living environment Review of Systems General: Malaise Gastrointestinal: Diarrhea Objective Exam Vital Signs Vital Signs Date Time Temp Pulse Resp B/P (MAP) Pulse Ox O2 Delivery O2 Flow Rate FiO2 01/30/18 12:00 98.1 90 18 129/66 (87) 93 Room Air 01/29/18 16:10 2.00 Capillary Refill : Less Than 3 Seconds General Appearance: No Apparent Distress, WD/WN, Chronically ill Respiratory: Chest Non Tender, Lungs Clear, Normal Breath Sounds, No Accessory Muscle Use, No Respiratory Distress Cardiovascular: Regular Rate, Rhythm, No Edema, No Gallop, No JVD, No Murmur, Normal Peripheral Pulses Neurologic/Psychiatric: Alert, Oriented x3, No Motor/Sensory Deficits, Normal Mood/Affect Results/Procedures Lab Patient resulted labs reviewed. Assessment/Plan Assessment and Plan Assess & Plan/Chief Complaint Assessment: Improving explosive diarrhea Severe hypokalemia Severe arthritis Severe debility Frightened about going home Plan: Questran Imodium Check labs in a.m. Discharge on Thursday Diagnosis/Problems Diagnosis/Problems (1) Diarrhea Status: Acute Qualifiers: Diarrhea type: unspecified type Qualified Codes: R19.7 - Diarrhea, unspecified (2) Debility Status: Acute (3) Frightened Status: Acute (4) Dehydration Status: Resolved Resolution Date/Time: 01/30/18 @ 13:26 (5) Hypokalemia Status: Resolved Resolution Date/Time: 01/30/18 @ 13:26 Clinical Quality Measures DVT/VTE Risk/Contraindication: Risk Factor Score Per Nursin RFS Level Per Nursing on Admit: 4+=Very High EDISON ARMANDO DO Jan 30, 2018 12:26
[2018-01-30] MEDS ORDERED: LOPERAMIDE 2 MG (IMODIUM) CAP PO PRN (12:30)
[2018-01-30] MEDS: CHOLESTYRAMINE 4 GM (QUESTRAN LITE, PREVALITE) PKT PO SCH ×3 (12:53→20:20)
[2018-01-30] MEDS: POTASSIUM CHLORIDE INJ 10 MEQ in NS IV 1000 ML 1,000 ML IV SCH (13:25)
[2018-01-30 16:10] VITALS: BP 134/69
[2018-01-30 19:57] VITALS: BP 154/77
[2018-01-31] VITALS: BP 140/87
[2018-01-31 04:00] VITALS: BP 140/69
[2018-01-31] MEDS: CHOLESTYRAMINE 4 GM (QUESTRAN LITE, PREVALITE) PKT PO SCH ×4 (06:01→20:19)
[2018-01-31] MEDS: KCL 20 MEQ TAB (K-DUR) PO SCH (06:05)
[2018-01-31] MEDS: LACTOBACILLUS ACIDOPHILUS (PROBIOTIC) CAPSULE PO SCH ×3 (06:05→16:24)
[2018-01-31 06:58] LABS: BASOPHILS % (AUTO) 0 % (0-10); EOSINOPHILS % (AUTO) 0 % (0-10); HEMATOCRIT 36 % (35-52); HEMOGLOBIN 11.4 G/DL (11.5-16.0); LYMPHOCYTES # (AUTO) 0.9 X 10^3 (1.0-4.0); LYMPHOCYTES % (AUTO) 7 % (12-44); MEAN CORPUSCULAR HEMOGLOBIN 30 PG (25-34); MEAN CORPUSCULAR HGB CONC 32 G/DL (32-36); MEAN CORPUSCULAR VOLUME 95 FL (80-99); MEAN PLATELET VOLUME 9.4 FL (7.4-10.4); MONOCYTES # (AUTO) 1.1 X 10^3 (0.0-1.0); MONOCYTES % (AUTO) 8 % (0-12); NEUTROPHILS # (AUTO) 11.8 X 10^3 (1.8-7.8); NEUTROPHILS % (AUTO) 85 % (42-75); PLATELET COUNT 338 10^3/uL (130-400); RED BLOOD COUNT 3.79 10^6/uL (4.35-5.85); RED CELL DISTRIBUTION WIDTH 14.9 % (10.0-14.5); WHITE BLOOD COUNT 13.8 10^3/uL (4.3-11.0)
[2018-01-31 07:21] LABS: ALANINE AMINOTRANSFERASE 16 U/L (0-55); ALBUMIN 3.5 GM/DL (3.2-4.5); ALKALINE PHOSPHATASE 86 U/L (40-136); BILIRUBIN,TOTAL 0.4 MG/DL (0.1-1.0); BUN/CREATININE RATIO 59; CALCIUM 9.4 MG/DL (8.5-10.1); CARBON DIOXIDE 24 MMOL/L (21-32); CHLORIDE 98 MMOL/L (98-107); CREATININE SERUM 0.79 MG/DL (0.60-1.30); GFR ESTIMATED > 60; GLUCOSE 130 MG/DL (70-105); POTASSIUM 4.8 MMOL/L (3.6-5.0); SODIUM 134 MMOL/L (135-145); TOTAL PROTEIN 6.9 GM/DL (6.4-8.2)
[2018-01-31] MEDS: POTASSIUM CHLORIDE INJ 10 MEQ in NS IV 1000 ML 1,000 ML IV SCH (07:42)
[2018-01-31 08:00] VITALS: BP 134/72
[2018-01-31] MEDS: predniSONE 5 MG TAB PO SCH (08:10)
[2018-01-31] MEDS: fentaNYL PATCH 25 MCG (DURAGESIC) TD SCH (08:11)
[2018-01-31] MEDS: DILTIAZEM 180 MG (CARDIZEM CD) CAP PO SCH (08:11)
[2018-01-31] MEDS: FENTANYL 25 MCG PATCH REMOVAL TP SCH (08:18)
--- NOTE | 2018-01-31 11:28 | Progress Note-Hospitalist ---
Subjective HPI/CC On Admission Date Seen by Provider: Jan 31, 2018 Time Seen by Provider: 11:00 Subjective/Events-last exam Patient doing well overall Bowels are now soft but formed and feels more confident about going home tomorrow Wondered about her Miralax so I explained that a few more days of Questran should help then switch back to Miralax due to high risk for narcotic bowel and she agrees with this plan Will HLIVF Potassium good so I adjusted her dosing Unsure why wbc is up today so will recheck in morning. Review of Systems General: Fatigue Objective Exam Vital Signs Vital Signs Date Time Temp Pulse Resp B/P (MAP) Pulse Ox O2 Delivery O2 Flow Rate FiO2 01/31/18 12:00 97.9 90 16 133/82 (99) 100 Room Air 01/29/18 16:10 2.00 Capillary Refill : Less Than 3 Seconds General Appearance: No Apparent Distress, WD/WN, Chronically ill Respiratory: Chest Non Tender, Lungs Clear, Normal Breath Sounds, No Accessory Muscle Use, No Respiratory Distress Cardiovascular: Regular Rate, Rhythm, No Edema, No Gallop, No JVD, No Murmur, Normal Peripheral Pulses Gastrointestinal: Normal Bowel Sounds, No Organomegaly, No Pulsatile Mass, Non Tender, Soft Neurologic/Psychiatric: Alert, Oriented x3, No Motor/Sensory Deficits, Normal Mood/Affect Results/Procedures Lab Laboratory Tests 01/31/18 05:55 Patient resulted labs reviewed. Assessment/Plan Assessment and Plan Assess & Plan/Chief Complaint Assessment: Explosive diarrhea now resolved with Questran and holding Miralax Severe hypokalemia-resolved Severe arthritis Severe debility Frightened about going home Plan: Questran Imodium Check labs in a.m. Discharge on Thursday Miralax once PCP and patient agrees to restart to prevent rebound constipation from narcotic bowel Diagnosis/Problems Diagnosis/Problems (1) Diarrhea Status: Resolved Qualifiers: Diarrhea type: unspecified type Qualified Codes: R19.7 - Diarrhea, unspecified Resolution Date/Time: 01/31/18 @ 13:57 (2) Debility Status: Acute (3) Frightened Status: Acute (4) Dehydration Status: Resolved Resolution Date/Time: 01/30/18 @ 13:26 (5) Hypokalemia Status: Resolved Resolution Date/Time: 01/30/18 @ 13:26 Clinical Quality Measures DVT/VTE Risk/Contraindication: Risk Factor Score Per Nursin RFS Level Per Nursing on Admit: 4+=Very High EDISON ARMANDO DO Jan 31, 2018 11:28
[2018-01-31] MEDS ORDERED: PANTOPRAZOLE 40 MG (PROTONIX) TAB PO NR (11:42)
[2018-01-31] MEDS ORDERED: DICLOFENAC 1% GEL 100 GM (VOLTAREN) TUBE TOP PRN (11:45)
[2018-01-31 12:00] VITALS: BP 133/82
[2018-01-31 16:00] VITALS: BP 133/78
[2018-01-31 20:00] VITALS: BP 148/83
[2018-02-01 00:12] VITALS: BP 156/83
[2018-02-01 04:00] VITALS: BP 151/84
[2018-02-01] MEDS: CHOLESTYRAMINE 4 GM (QUESTRAN LITE, PREVALITE) PKT PO SCH (06:12)
[2018-02-01] MEDS: LACTOBACILLUS ACIDOPHILUS (PROBIOTIC) CAPSULE PO SCH (06:12)
[2018-02-01] MEDS ORDERED: KCL 20 MEQ TAB (K-DUR) PO SCH (07:00)
[2018-02-01 07:08] LABS: BASOPHILS % (AUTO) 0 % (0-10); EOSINOPHILS # (AUTO) 0.1 10^3/uL (0.0-0.3); EOSINOPHILS % (AUTO) 1 % (0-10); HEMATOCRIT 37 % (35-52); HEMOGLOBIN 11.4 G/DL (11.5-16.0); LYMPHOCYTES # (AUTO) 1.1 X 10^3 (1.0-4.0); LYMPHOCYTES % (AUTO) 9 % (12-44); MEAN CORPUSCULAR HEMOGLOBIN 30 PG (25-34); MEAN CORPUSCULAR HGB CONC 31 G/DL (32-36); MEAN CORPUSCULAR VOLUME 95 FL (80-99); MEAN PLATELET VOLUME 9.1 FL (7.4-10.4); MONOCYTES # (AUTO) 1.3 X 10^3 (0.0-1.0); MONOCYTES % (AUTO) 11 % (0-12); NEUTROPHILS # (AUTO) 10.1 X 10^3 (1.8-7.8); NEUTROPHILS % (AUTO) 80 % (42-75); PLATELET COUNT 326 10^3/uL (130-400); RED BLOOD COUNT 3.87 10^6/uL (4.35-5.85); RED CELL DISTRIBUTION WIDTH 14.7 % (10.0-14.5); WHITE BLOOD COUNT 12.6 10^3/uL (4.3-11.0)
[2018-02-01 07:29] LABS: ALANINE AMINOTRANSFERASE 16 U/L (0-55); ALBUMIN 3.4 GM/DL (3.2-4.5); ALKALINE PHOSPHATASE 81 U/L (40-136); BILIRUBIN,TOTAL 0.5 MG/DL (0.1-1.0); BUN/CREATININE RATIO 45; CALCIUM 9.5 MG/DL (8.5-10.1); CARBON DIOXIDE 23 MMOL/L (21-32); CHLORIDE 104 MMOL/L (98-107); CREATININE SERUM 0.69 MG/DL (0.60-1.30); GFR ESTIMATED > 60; GLUCOSE 84 MG/DL (70-105); POTASSIUM 5.1 MMOL/L (3.6-5.0); SODIUM 136 MMOL/L (135-145); TOTAL PROTEIN 6.4 GM/DL (6.4-8.2)
[2018-02-01 08:00] VITALS: BP 144/81
[2018-02-01] MEDS: predniSONE 5 MG TAB PO SCH (08:10)
[2018-02-01] MEDS: DILTIAZEM 180 MG (CARDIZEM CD) CAP PO SCH (08:10)
--- NOTE | 2018-02-01 08:58 | Physical Therapy Daily Note ---
PT Daily Note-Current Subjective Pt reports she is looking forward to going home because things are so much easier like getting in and out of bed, but also somewhat reluctant stating that her breathing is worse since coming into the hospital and is going to talk to the doctor about it. Pain Numeric Pain Scale: 8 Comment: states just got pain med and has not kicked in yet Appearance upon arrival into pt's room, Pt supine in bed awake and alert and agreeable to PT. Requesting to use the BSC At end of session, pt supine in bed with call light phone and bedside table within reach and all needs met. Mental Status Attachments: Saline Lock, Other-See Comments soft neck brace. States hospital staff still has not found her back brace so is not wearing one at this time but assures that she is ok at this time without it Transfers Therapy Code Descriptions/Definitions Functional [place] Measure: 0=Not Assessed/NA 4=Minimal Assistance 1=Total Assistance 5=Supervision or Setup 2=Maximal Assistance 6=Modified [place] 3=Moderate Assistance 7=Complete [place] Therapy Quality Codes: 6 Independent with activity with or without an assistive device 5 Patient requires set up or clean up by helper. Patient completes activity by themselves 4 Supervision or touching assist (CGA). [place] provide cues , steadying assist 3 The helper provides less than half the effort to complete the activity 2 The helper provides more than half the effort to complete the activity 1 Dependent. The helper does all the effort to complete an activity 7 Patient refused to complete or attempt activity 9 The patient did not perform the activity before the current illness or injury 88 Not attempted due to Medical conditions or safety concerns Transfers (B, C, W/C) (FIM): 4 Scootin Rollin Supine to/from Sit: 4 Sit to/from Stand: 6 somewhat self limiting to move LE's out of bed, stating she is not able to do it before attempting but states she can do it at home because it is easier in her own bed. Able to perform supine to sit with strong encouragement. Weight Bearing Right Lower Extremity: Right Full Weight Bearing Left Lower Extremity: Left Full Weight Bearing Gait Training Distance (FIM): 9=389-02 ft Distance: 128 Gait Level of Assist: 5 Gait Persons Needed: 1 Gait Assistive Device: FWW decreased step length and height, toe out, edema bilat LE's into feet, slight kyphotic posture with fwd head, slow but steady gait with standing rest break Treatments gait and transfer training, bed mobility Assessment Current Status: Fair Progress PT Short Term Goals Short Term Goals Time Frame: Jan 29, 2018 PT Dynamo Tender Goals Dynamo Tender Goals PT [facility] Goals Time Frame: Feb 06, 2018 Transfers (B,C,W/C) (FIM): 6 Gait (FIM): 6 Gait distance (FIM): 3=150 ft Distance: 150' Gait Level of Assist: 6 Gait Assistive Device: FWW PT Plan Problem List Problem List: Activity Tolerance, Functional Strength, Gait, Transfer, Bed Mobility Treatment/Plan Treatment Plan: Continue Plan of Care Treatment Plan: Bed Mobility, Education, Functional Activity Shamika, Functional Strength, Gait, Safety, Therapeutic Exercise, Transfers, Other Treatment Duration: Feb 06, 2018 Frequency: 6 times per week Estimated Hrs Per Day: .25 hour per day Patient and/or Family Agrees t: Yes Safety Risks/Education Patient Education: Gait Training, Transfer Techniques, Safety Issues Teaching Recipient: Patient Teaching Methods: Discussion Response to Teaching: Verbalize Understanding, Return Demonstration, Reinforcement Needed Time/GCodes Time In: 827 Time Out: 852 Total Billed Treatment Time: 25 Total Billed Treatment 1 Visit GT x1 FA x1 AYAH BURTON CLOUD SOLUTIONS ARCHITECT Feb 01, 2018 08:58
[2018-02-01] MEDS ORDERED: PANTOPRAZOLE 40 MG (PROTONIX) TAB PO SCH (09:00)
[2018-02-01] MEDS ORDERED: LOPE2CAP PO (09:02)
[2018-02-01] MEDS ORDERED: POLY17PO6 PO (09:02)
--- NOTE | 2018-02-01 09:05 | D/C HH Face to Face Order ---
D/C Face to Face Orders Instructions for Patient HOME HEALTH OF PT CHOICE Patient Instructions/FollowUp: 1 WK [facility] Physician to follow Patient: [facility] Discharge Diet for Home: Regular Diet Patient Problems: HYPERTENSION CHRONIC CONSTIPATION WITH INTERMITTENT DIARRHEA LYMPHEDEMA HYPOKALEMIA GENERALIZED WEAKNESS INFLAMMATORY ARTHRITIS Patient Data-Allergies,Ht & Wt Patient Allergies: Coded Allergies: Penicillins (Verified Allergy, Unknown, 01/25/18) Sulfa (Sulfonamide Antibiotics) (Verified Allergy, Unknown, 01/25/18) Height (Feet): 5 Height (Inches): 7.00 Weight (Pounds): 144 Weight (Ounces): 3.6 Home Health Need/Face to Face Date of Face to Face: Feb 01, 2018 Clinical Findings: Generalized weakness and fatigue, Muscle weakness I have seen Pt [id number]: Yes Discharged To: Home Diagnosis/Conditions: HYPERTENSION CHRONIC CONSTIPATION WITH INTERMITTENT DIARRHEA LYMPHEDEMA HYPOKALEMIA GENERALIZED WEAKNESS INFLAMMATORY ARTHRITIS Patient is Homebound due to: Dmitriy fall risk due to instabilty, Muscle weakness Homebound Status Due to the above stated illness, injury or surgical procedure (medical condition or diagnosis) and associated clinical findings, the patient is homebound because of his/her inability to leave home except with aid of a supportive device and/or person AND leaving the home requires a considerable and taxing effort or is medically contraindicated. Pt req the following assistanc: Aid of another person, [facility] Nursing Orders Home Health Services Order: Nursing Services, Graduate Studies Dean-Evaluate & Treat, Physical Therapy-Evaluate & Treat LYMPHEDEMA SERVICES, STRENGTHENING, MEDICATION MANAGEMENT, DRAW CMP, CBC ON 02/03/18, RESULT TO DR. CARBONE [facility] Infusion Therapy Line Start Date: Jan 25, 2018 Line Type: Peripheral IV Site Location: Forearm Therapy Orders Therapy Orders: Physical Therapy, PT to assess for OT Therapy Specific Orders: Teach enviro modifications/safety, Increase strength/ endurance Certify Stmt I certify that this patient is under my care and that I, a nurse practitioner or a physician; a retail assistant working with me, had a face to face encounter that - meets the physician face to face encounter requirements with this patient as dated. WOODY CARBONE MD Feb 01, 2018 09:05
[2018-02-01 11:52] VITALS: BP 144/81
== END 2018-02-01 12:08 | disposition home health service (06) | DRG 392 ==
LOC: EDUNIT# 16:34 → ER 16:36 → 4TH 18:26
PROVIDERS: ADMIT Family Medicine; ATTEND Family Medicine
DX: K58.1 Irritable bowel syndrome with constipation (principal); K58.0 Irritable bowel syndrome with diarrhea; E87.6 Hypokalemia; E87.8 Other disorders of electrolyte and fluid balance, not elsewhere classified; E86.0 Dehydration; I89.0 Lymphedema, not elsewhere classified; G89.4 Chronic pain syndrome; I48.91 Unspecified atrial fibrillation; I10 Essential (primary) hypertension; E78.00 Pure hypercholesterolemia, unspecified; G62.9 Polyneuropathy, unspecified; M79.7 Fibromyalgia; M19.91 Primary osteoarthritis, unspecified site; M06.9 Rheumatoid arthritis, unspecified; M41.9 Scoliosis, unspecified; K21.9 Gastro-esophageal reflux disease without esophagitis; Z87.891 Personal history of nicotine dependence; Z79.52 Long term (current) use of systemic steroids; Z96.653 Presence of artificial knee joint, bilateral; Z87.11 Personal history of peptic ulcer disease
CPT/HCPCS: 36415; 74018; 74176; 80048; 80053; 81000; 83690; 83735; 85025; 86141; 87088; 94760; 96374

== ENCOUNTER → 2018-02-18 | Outpatient (CLI) | payer MEDICARE, OTHER ==
[~2018-02-18] MED LIST changes: +DICL100G18 TP; +LOPE2CAP PO; +METO10TA7 PO; +POTA10TA14 PO
--- NOTE | 2018-02-18 13:35 | Diagnostic Imaging Report ---
INDICATION: Cough. Time of exam 1:40 PM Comparison is made with prior chest from 06/06/2017. Heart size is stable. Lungs are hyperinflated consistent with COPD. Lungs appear to be fairly clear. Minimal density in the right base is seen medially. Some minimal infiltrate or atelectasis cannot be entirely excluded. The left lung is clear. No effusion or pneumothorax is identified. Extensive spinal instrumentation in the mid thoracic spine extending to the lumbar spine is noted. IMPRESSION: COPD. There may be very minimal infiltrate or atelectasis in the right base. The study is otherwise unremarkable. Report was called to Ila Kennedy, nurse practitioner by darrell at 1:34 p.m. Dictated by: Dictated on workstation # [id number]
== END ==
LOC: RAD 13:08
PROVIDERS: ATTEND Nurse Practitioner Family
DX: J44.9 Chronic obstructive pulmonary disease, unspecified (principal)
CPT/HCPCS: 71046

== ENCOUNTER → 2018-03-01 | Outpatient (CLI) | payer MEDICARE, OTHER ==
[~2018-03-01] VITALS: Ht 170.2 cm; Wt 65.4 kg
[~2018-03-01] MED LIST changes: +DENOSUMAB 60 MG/1 ML (PROLIA) SQ SCH
[2018-03-01 13:34] VITALS: BP 114/76
== END ==
LOC: SDC 12:55
PROVIDERS: ATTEND Nurse Practitioner Family
DX: M81.0 Age-related osteoporosis without current pathological fracture (principal)
CPT/HCPCS: 96372

== ENCOUNTER → 2018-03-22 | Outpatient (CLI) | payer MEDICARE, OTHER ==
[~2018-03-22] MED LIST changes: -DENOSUMAB 60 MG/1 ML (PROLIA) SQ SCH
== END ==
LOC: CARD 13:57
PROVIDERS: ATTEND Internal Medicine Cardiovascular Disease
DX: I48.91 Unspecified atrial fibrillation (principal); R53.83 Other fatigue; R42 Dizziness and giddiness; M54.2 Cervicalgia; M54.5 Low back pain; I08.1 Rheumatic disorders of both mitral and tricuspid valves
CPT/HCPCS: 93306

== ENCOUNTER 2018-06-03 10:58 | Observation (INO) | payer MEDICARE, OTHER ==
--- NOTE | 2018-05-27 16:41 | HISTORY AND PHYSICAL ---
DATE OF SERVICE: COLONOSCOPY HISTORY AND PHYSICAL HISTORY OF PRESENT ILLNESS: The patient is a frail 82-year-old white female, referred by Dr. Silva, for diagnostic colonoscopy. She had been having constipation problems for the past several months and had noted prolapsing tissue with bleeding for the past several months with mild discomfort. She had tried Proctofoam HC with no improvement in her symptoms and is being referred for further investigation. She is not aware of any past history of hemorrhoids or known rectal prolapse and denies any issues with vaginal bleeding and has had no problems with urinary tract infection. I had performed colonoscopy on her one other time little over 5-1/2 years ago in 09/2012. At that time, she had some sigmoid colonic findings suggestive of some extrinsic adhesions with sharp angulation at the rectosigmoid junction, but otherwise no evidence for obstruction. She had no polyps and diffuse small sigmoid diverticulum with no evidence for neoplasia. No hemorrhoids were noted at that time. PAST MEDICAL HISTORY: Significant for frailty due to osteoarthritis longstanding as well as multiple surgeries to stabilize her lumbar spine including a large anterior repair. She has had a lot of complications from rheumatoid arthritis in the past and also has a history of hypertension and mixed hyperlipidemia. SOCIAL HISTORY: She is understandably concerned about getting through a bowel prep as she is slow in movement and prone to incontinence during episodes of diarrhea. FAMILY HISTORY: Most pertinent for a sister who had colon cancer in her early 70s. She is not aware of any other family history for colon cancer or polyps. SOCIAL HISTORY: She lives with her daughter and son-in-law who helped to care for her. MEDICATIONS ON ADMISSION: Include fentanyl patch 100 mcg q.72 hours, oxycodone 15 mg q.i.d. which she takes on a regular basis for back pain, diltiazem 360 mg daily which she takes for atrial fibrillation. She is on no anticoagulant therapy due to relative contraindication, pantoprazole 40 mg daily, prednisone 5 mg daily, gabapentin 100 mg t.i.d., potassium 10 mEq daily, furosemide 20 mg daily, metolazone 10 mg p.r.n. edema, Lomotil for diarrhea that she has only rarely been taking as of late and MiraLax 17 grams daily for constipation, calcium 600 mg b.i.d., vitamin D 1000 units daily, and vitamin C 500 mg daily. PHYSICAL EXAMINATION: GENERAL: Reveals a frail elderly white female who did not appear to be in acute distress. VITAL SIGNS: Blood pressure was 130/70, heart rate was in the 70s and irregularly irregular and weight 156 pounds. HEENT: Unremarkable. The patient was wearing a neck brace, so neck was not examined. Oral cavity reveals Mallampati 2 class oropharyngeal configuration. No erythema or exudate is noted. CARDIOVASCULAR: Revealed an irregularly irregular rhythm without S3 or S4, no significant murmurs are noted. CHEST: Clear to auscultation. ABDOMEN: Soft, supple without mass or organomegaly. There is some mild left lower quadrant discomfort to palpation. Bowel sounds are positive. No bruits are noted. EXTREMITIES: Reveal no cyanosis, clubbing or edema. ASSESSMENT AND PLAN: Symptoms are suspicious for rectal prolapse but there is positive family history for colon cancer in a first-degree relative with some secondary rectal bleeding. As the patient is too frail to undergo prep without help, we will do it as an inpatient in the hospital next with colonoscopy next Thursday. Prep instructions were written out in the PACS in the fourth floor. With discussion of colonoscopy and various possibilities for her symptoms in addition to dictation, EMR review and going through prep instructions, 45 minutes of my face to face care time was spent with another 15 minutes of staff time. I thank you for the referral of this pleasant lady. Job ID: [id number] DocumentID: [id number] Dictated Date: 05/27/2018 16:09:25 Wheel Installer Date: 05/27/2018 16:40:44 Dictated By: NELIA LOVELACE MD MTDD
[~2018-06-03] VITALS: Ht 170.2 cm; Wt 66.9 kg
--- OUTSIDE RECORDS SUMMARY | 2018-06-03 15:13 | XMS REPORT | Clinical Summary ---
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 If you do not see the information that you expected, contact Release of Information in the Health Information Management department at [phone] for further assistance in locating additional records.[facility] Allergies Not on File Medications Not on file Active Problems Not on file Social History Date Tobacco Use Types Packs/Day Years Used Never Assessed Sex Assigned at Date Recorded Not on file Industry Job Start Date Occupation Not on file Not on file Not on file Travel End Travel History Travel Start No recent travel history available. Last Filed Vital Signs Not on file Plan of Treatment Health Maintenance Due Date Last Done Comments PHYSICAL (COMPREHENSIVE) 1942 EXAM DTAP/TDAP VACCINES (1 - 1952 Tdap) SHINGLES RECOMBINANT 1984 VACCINE (1 of 2) OSTEOPOROSIS 08/10/1999 SCREENING/MONITORING PNEUMONIA (PCV13/PPSV23) 08/10/1999 VACCINES (1 of 2 - PCV13) INFLUENZA VACCINE 09/30/2018 Results Not on filefrom Last 3 Months
--- OUTSIDE RECORDS SUMMARY | 2018-06-03 15:24 | XMS REPORT | CCD ---
Author Author [facility] Organization [facility] Address [address] [place] [address] Phone Care Team Providers Care Banquet Lead Name Role Phone PP Unavailable CCM Unavailable Summary Purpose Interface Exchange Insurance Providers Payer name Policy type / Coverage type Covered libertarian ID Effective Begin Date Effective End Date [place] [employer] Medicare Part B [id number] 2017 Unknown AET[employer] Medicare Part B [id number] Unknown Family history Father Diagnosis Age At [...] Unknown Retired 07/12/[address]: 0526764 Quit over 10 years ago 1967 07/12/2014 [...] ICD-9: 401.1 ICD-10: I10 Active 09/29/2017 Unknown Primary osteoarthritis, 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 ICD-10: M19.012 Active 10/07/2016 Unknown Primary osteoarthritis, right shoulder ICD-9: 715.91 ICD-10: M19.011 Active 10/07/2016 Unknown First degree hemorrhoids ICD-9: 455.0 ICD-10: K64.0 Active 05/10/2018 Unknown Other specified diseases of anus and rectum ICD-9: 569.42 ICD-10: K62.89 Active 05/10/2018 Unknown Sciatica Unknown Active 05/04/2018 Unknown Sciatica, right side ICD-9: 724.3 ICD-10: M54.31 Active 05/04/2018 Unknown Slow transit constipation ICD-9: 564.01 ICD-10: K59.01 Active 05/04/2018 Unknown Diarrhea, unspecified ICD-9: 787.91 ICD-10: R19.7 Active 02/09/2018 Unknown Hypo-osmolality and hyponatremia ICD-9: 276.1 ICD-10: E87.1 Active 03/03/2018 Unknown Other specified intestinal infections ICD-9: 009.0 ICD-10: A08.8 Active 04/21/2018 Unknown Acute bronchitis, unspecified ICD-9: 466.0 ICD-10: J20.9 Active 02/12/2018 Unknown Chronic obstructive pulmonary disease, unspecified ICD-9: 496 ICD-10: J44.9 Active 02/12/2018 Unknown Cough ICD-9: 786.2 ICD-10: R05 Active 02/09/2018 Unknown Generalized edema ICD- 9: 782.3 ICD-10: R60.1 Active 11/27/2017 Unknown Lymphedema, not elsewhere classified ICD-9: 457.1 ICD-10: I89.0 Active 11/17/2016 Unknown Localized edema ICD-9 : 782.3 ICD-10: R60.0 Active 08/10/2014 Unknown Pain in left shoulder ICD-9: 719.41 ICD-10: M25.512 Active 07/04/2016 Unknown Pain in right shoulder ICD-9: 719.41 ICD-10: M25.511 Active 10/02/2016 Unknown Rheumatoid arthritis without rheumatoid factor, left [...] hypertension ICD-9: 401.1 ICD-10: I10 09/29/2017 Active Primary osteoarthritis, 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 ICD-10: M19.012 10/07/2016 Active Primary osteoarthritis, right shoulder ICD-9: 715.91 ICD-10: M19.011 10/07/2016 Active First degree hemorrhoids ICD-9: 455.0 ICD-10: K64.0 05/10/2018 Active Other specified diseases of anus and rectum ICD-9: 569.42 ICD-10: K62.89 05/10/2018 Active Sciatica Unknown 05/04/2018 Active Sciatica, right side ICD-9: 724.3 ICD-10: M54.31 05/04/2018 Active Slow transit constipation ICD-9: 564.01 ICD-10: K59.01 05/04/2018 Active Diarrhea, unspecified ICD-9: 787.91 ICD-10: R19.7 02/09/2018 Active Hypo-osmolality and hyponatremia ICD-9: 276.1 ICD-10: E87.1 03/03/2018 Active Other specified intestinal infections ICD-9: 009.0 ICD-10: A08.8 04/21/2018 Active Acute bronchitis, unspecified ICD-9: 466.0 ICD-10: J20.9 02/12/2018 Active Chronic obstructive pulmonary disease, unspecified ICD-9: 496 ICD-10: J44.9 02/12/2018 Active Cough ICD-9: 786.2 ICD-10: R05 02/09/2018 Active Generalized edema ICD- 9: 782.3 ICD-10: R60.1 11/27/2017 Active Lymphedema, not elsewhere classified ICD-9: 457.1 ICD-10: I89.0 11/17/2016 Active Localized edema ICD-9 : 782.3 ICD-10: R60.0 08/10/2014 Active Pain in left shoulder ICD-9: 719.41 ICD-10: M25.512 07/04/2016 Active Pain in right shoulder ICD-9: 719.41 ICD-10: M25.511 10/02/2016 Active Rheumatoid arthritis without rheumatoid factor, left [...] Start Date Stop Date Status Fill Instructions gabapentin 100 mg capsule RxNorm: 294353 2 Capsule(s) PO TID 09/28/2018 Active Cardizem CD 360 mg capsule,extended release RxNorm: 511725 TAKE 1 CAPSULE BY MOUTH ONCE DAILY 05/28/2018 No Stop Date Active oxycodone 30 mg tablet RxNorm: 9684075 1/2 Tablet(s) PO Q6 07/15/2018 Active Lasix 40 mg tablet RxNorm: 099384 1 Tablet(s) PO BID 201807/10/2018 Active Proctocort 30 mg rectal suppository RxNorm: 8953539 1 Suppository RTL daily x 1 wk then daily prn hemorrhoids 05/10/2018 No Stop Date Active fentanyl 100 mcg/hr transdermal patch RxNorm: 618009 1 Patch TD Q72H 05/07/2018 06/05/2018 Active prednisone 10 mg tablet RxNorm: 714685 1 Tablet(s) PO UD 2 tabs daily x 1 week then decrease to 1 pill daily x 1 week then go back to 5mg daily 05/04/2018 05/24/2018 Inactive gabapentin 100 mg capsule RxNorm: 458773 1 Capsule(s) PO at bedtime x 1 week then increase up to one pill twice daily x 1 wk then TID thereafter 05/04/2018 05/31/2018 Inactive promethazine 25 mg/mL injection solution RxNorm: 562306 Milliliter(s) Inj 04/21/2018 04/21/2018 Inactive ondansetron 4 mg disintegrating tablet RxNorm: 204826 1 Tablet(s) PO TID as needed nausea and vomitting 04/21/2018 Inactive ondansetron 4 mg disintegrating tablet RxNorm: 602702 1 Tablet(s) PO TID as needed nausea and vomitting 04/21/2018 Inactive promethazine 25 mg tablet RxNorm: 179218 1 Tablet(s) PO TID as needed nausea and vomitting 04/21/2018 05/20/2018 Inactive promethazine 25 mg tablet RxNorm: 965274 1 Tablet(s) PO TID as needed nausea and vomitting 04/21/2018 04/25/2018 Inactive metolazone 10 mg tablet RxNorm: 443130 1 Tablet(s) PO every other day uncontrolled edema 04/08/2018 12/03/2018 Active fentanyl 100 mcg/hr transdermal patch RxNorm: 359633 1 Patch TD Q72H use with 25mcg/hr patch 04/07/2018 05/06/2018 Inactive fentanyl 25 mcg/hr transdermal patch RxNorm: 641153 1 Patch TD Q72H use with 100mcg patch for a total of 125mcg daily 04/07/2018 05/03/2018 Inactive potassium chloride ER 10 mEq tablet,extended release(part/ cryst) RxNorm: 9529960 2 Tablet(s) PO TID 03/30/2018 07/27/2018 Active oxycodone 30 mg tablet RxNorm: 2157731 1/2 Tablet(s) PO Q6 05/15/2018 Inactive fentanyl 25 mcg/hr transdermal patch RxNorm: 537233 1 Patch TD Q72H use with 100mcg patch for a total of 125mcg daily 03/17/2018 04/06/2018 Inactive Lasix 40 mg tablet RxNorm: 707737 Tablet(s) PO TAKE 1 TABLET BY MOUTH TWICE DAILY 03/04/2018 05/11/2018 Inactive fentanyl 100 mcg/hr transdermal patch RxNorm: 858822 1 Patch TD Q72H use with 25mcg/hr patch 03/03/2018 04/01/2018 Inactive potassium chloride ER 10 mEq capsule,extended release RxNorm: 720104 2 Capsule(s) PO TID 03/03/2018 03/29/2018 Inactive albuterol sulfate 2.5 mg/3 mL (0.083 %) solution for nebulization RxNorm: 359802 3 Milliliter(s) INH Q4 PRN 02/18/2018 No Stop Date Active cefdinir 300 mg capsule RxNorm: 653388 1 Capsule(s) PO BID 02/24/2018 Inactive cefdinir 300 mg capsule RxNorm: 122630 1 Capsule(s) PO BID 02/17/2018 Inactive Flonase Allergy Relief 50 mcg/actuation nasal spray, suspension RxNorm: 7146506 2 [place] NASAL daily 02/12/20182017 Inactive Zithromax Z-Humberto 250 mg tablet RxNorm: 725868 1 Tablet(s) PO UD 02/12/2018 02/16/2018 Inactive Lomotil 2.5 mg-0.025 mg tablet RxNorm: 2930268 1 Tablet(s) PO BID PRN 02/09/2018 No Stop Date Active fentanyl 25 mcg/hr transdermal patch RxNorm: 543509 1 Patch TD Q72H use with 100mcg patch for a total of 125mcg daily 02/09/2018 03/10/2018 Inactive oxycodone 30 mg tablet RxNorm: 2099947 1/2 Tablet(s) PO Q6 03/14/2018 Inactive metolazone 10 mg tablet RxNorm: 829821 1 Tablet(s) PO QAM as needed uncontrolled edema 01/14/2018 03/14/2018 Inactive fentanyl 100 mcg/hr transdermal patch RxNorm: 767263 1 Patch TD Q72H use with 25mcg/hr patch 01/14/2018 02/12/2018 Inactive fentanyl 25 mcg/hr transdermal patch RxNorm: 467260 1 Patch TD Q72H use with 100mcg patch for a total of 125mcg daily 01/14/2018 02/08/2018 Inactive metolazone 10 mg tablet RxNorm: 760469 1 Tablet(s) PO every other day as needed uncontrolled edema 01/07/2018 01/13/2018 Inactive metolazone 10 mg tablet RxNorm: 622254 1 Tablet(s) PO every other day as needed uncontrolled edema 01/07/2018 01/06/2018 Inactive Cipro 500 mg tablet RxNorm: 909915 1 Tablet(s) PO BID 201701/05/2018 Inactive Cipro 500 mg tablet RxNorm: 102683 1 Tablet(s) PO BID 201701/15/2018 Inactive potassium chloride ER 10 mEq tablet,extended release(part/ cryst) RxNorm: 8958605 2 Capsule(s) PO TID when taking lasix 01/05/2018 05/04/2018 Inactive Cardizem CD 360 mg capsule,extended release RxNorm: 159738 1 Capsule(s) PO daily 01/05/2018 05/04/2018 Inactive potassium chloride ER 10 mEq capsule,extended release RxNorm: 576297 Capsule(s) TAKE 1 CAPSULE BY MOUTH TWICE DAILY WHEN TAKING LASIX (FUROSEMIDE) 11/27/2017 03/02/2018 Inactive potassium chloride ER 10 mEq capsule,extended release RxNorm: 718754 Capsule(s) TAKE 1 CAPSULE BY MOUTH TWICE DAILY WHEN TAKING LASIX (FUROSEMIDE) 11/27/2017 11/26/2017 Inactive fentanyl 25 mcg/hr transdermal patch RxNorm: 855556 1 Patch TD Q72H use with 100mcg patch for a total of 125mcg daily 11/27/2017 12/26/2017 Inactive bumetanide 0.5 mg tablet RxNorm: 760186 1 Tablet(s) PO daily 12/23/2017 Inactive in the afternoon x 3 days then as needed per Dr Silva fentanyl 100 mcg/hr transdermal patch RxNorm: 158397 1 Patch TD Q72H use with 25mcg/hr patch 11/27/2017 12/26/2017 Inactive oxycodone 30 mg tablet RxNorm: 9868682 1/2 Tablet(s) PO Q6 12/27/2017 Inactive fentanyl 100 mcg/hr transdermal patch RxNorm: 774780 1 Patch TD Q72H use with 25mcg/hr patch 10/29/2017 11/26/2017 Inactive Lasix 20 mg tablet RxNorm: 354737 TAKE 1 TABLET BY MOUTH TWICE DAILY 10/29/2017 03/03/2018 Inactive fentanyl 25 mcg/hr transdermal patch RxNorm: 284538 1 Patch TD Q72H use with 100mcg patch for a total of 125mcg daily 10/29/2017 11/26/2017 Inactive pantoprazole 40 mg tablet,delayed release RxNorm: 937765 Tablet(s) Take 1 tablet by mouth daily 10/21/2017 04/18/2018 Inactive - Ref: [id number] potassium chloride ER 10 mEq capsule,extended release RxNorm: 237445 TAKE 1 CAPSULE BY MOUTH TWICE DAILY WHEN TAKING LASIX (FUROSEMIDE) 10/09/2017 11/26/2017 Inactive fentanyl 25 mcg/hr transdermal patch RxNorm: 933657 1 Patch TD Q72H use with 100mcg patch for a total of 125mcg daily 10/01/2017 10/28/2017 Inactive fentanyl 100 mcg/hr transdermal patch RxNorm: 805231 1 Patch TD Q72H use with 25mcg/hr patch 10/01/2017 10/28/2017 Inactive potassium chloride ER 10 mEq tablet,extended release(part/ cryst) RxNorm: 8754634 1 Capsule(s) PO BID when taking lasix 09/22/2017 01/04/2018 Inactive fentanyl 100 mcg/hr transdermal patch RxNorm: 817805 1 Patch TD Q72H use with 25mcg/hr patch 08/31/2017 09/29/2017 Inactive Kenalog 40 mg/mL suspension for injection RxNorm: 7833793 1 Milliliter(s) Inj 08/31/2017 08/31/2017 Inactive fentanyl 25 mcg/hr transdermal patch RxNorm: 669878 1 Patch TD Q72H use with 100mcg patch for a total of 125mcg daily 08/31/2017 09/29/2017 Inactive oxycodone 30 mg tablet RxNorm: 9002957 1/2 Tablet(s) PO Q6 04/201710/28/2017 Inactive cyanocobalamin (vit B-12) 1,000 mcg/mL injection solution RxNorm: 028256 1 Milliliter(s) Inj monthly 08/21/201708/15 Active please provide her with syringe/needle for injection cyanocobalamin (vit B-12) 1,000 mcg/mL injection solution RxNorm: 279917 1 Milliliter(s) Inj monthly 08/21/201708/20 Inactive please provide her with syringe/needle for injection Kenalog 40 mg/mL suspension for injection RxNorm: 1273477 2 Milliliter(s) Inj 1mL in each shoulder 08/21/2017 08/21/2017 Inactive cyanocobalamin (vit B-12) 1,000 mcg/mL injection solution RxNorm: 081403 1 Milliliter(s) Inj monthly 08/21/201708/20 Inactive please provide her with syringe/needle for injection Kenalog 40 mg/mL suspension for injection RxNorm: 5520534 2 Milliliter(s) Inj UD 08/12/2017 08/12/2017 Inactive fentanyl 25 mcg/hr transdermal patch RxNorm: 632130 1 Patch TD Q72H use with 100mcg patch for a total of 125mcg daily 08/05/2017 08/30/2017 Inactive fentanyl 100 mcg/hr transdermal patch RxNorm: 327016 1 Patch TD Q72H use with 25mcg/hr patch 08/05/2017 08/30/2017 Inactive Kenalog 40 mg/mL suspension for injection RxNorm: 1656701 2 Milliliter(s) Inj 1mL per shoulder 08/05/2017 08/05/2017 Inactive clindamycin HCl 150 mg capsule RxNorm: 832152 1 Capsule(s) PO QID Dr Shultz prescribed 07/23/2017 07/29/2017 Inactive prednisone 5 mg tablet RxNorm: 830604 1 Tablet(s) PO daily 11/201707/03/2018 Active fentanyl 25 mcg/hr transdermal patch RxNorm: 798286 1 Patch TD Q72H use with 100mcg patch for a total of 125mcg daily 07/01/2017 07/30/2017 Inactive Lasix 20 mg tablet RxNorm: 923269 1 Tablet(s) PO BID 201710/28/2017 Inactive fentanyl 100 mcg/hr transdermal patch RxNorm: 296271 1 Patch TD Q72H use with 25mcg/hr patch 07/01/2017 07/30/2017 Inactive potassium chloride ER 10 mEq capsule,extended release RxNorm: 769094 1 Capsule(s) PO BID when taking lasix 07/01/20172017 Inactive oxycodone 30 mg tablet RxNorm: 8137064 1/2 Tablet(s) PO Q6 08/22/2017 Inactive fentanyl 100 mcg/hr transdermal patch RxNorm: 246331 1 Patch TD Q72H use with 25mcg/hr patch 05/07/2017 06/05/2017 Inactive fentanyl 25 mcg/hr transdermal patch RxNorm: 684071 1 Patch TD Q72H use with 100mcg patch for a total of 125mcg daily 05/07/2017 06/05/2017 Inactive fentanyl 100 mcg/hr transdermal patch RxNorm: 344828 1 Patch TD Q72H 04/08/2017 05/06/2017 Inactive fentanyl 25 mcg/hr transdermal patch RxNorm: 529722 1 Patch TD Q72H use with 100mcg patch for a total of 125mcg daily 04/08/2017 05/06/2017 Inactive Kenalog 40 mg/mL suspension for injection RxNorm: 8274386 1.5 Milliliter(s) Inj 04/02/2017 04/02/2017 Inactive fentanyl 100 mcg/hr transdermal patch RxNorm: 083475 1 Patch TD Q72H 03/12/2017 04/07/2017 Inactive fentanyl 25 mcg/hr transdermal patch RxNorm: 924033 1 Patch TD Q72H use with 100mcg patch for a total of 125mcg daily 03/12/2017 04/07/2017 Inactive oxycodone 30 mg tablet RxNorm: 3693600 1/2 Tablet(s) PO Q6 09/201704/07/2017 Inactive cyanocobalamin (vit B-12) 1,000 mcg/mL injection syringe RxNorm: 005923 1 Milliliter(s) Inj monthly 02/16/2017 No Stop Date Active please provide with supplys needed for injection fentanyl 100 mcg/hr transdermal patch RxNorm: 817690 1 Patch TD Q72H 02/06/2017 03/07/2017 Inactive Myrbetriq 50 mg tablet,extended release RxNorm: 3811596 1 Tablet(s) PO QPM 12/11/2016 07/22/2017 Inactive oxycodone 30 mg tablet RxNorm: 6568233 1/2 Tablet(s) PO Q6 10/201601/06/2017 Inactive naproxen 500 mg tablet RxNorm: 292994 1 Tablet(s) PO BID Take 1 tablet by mouth two times daily as needed 12/08/201607/08 Inactive - First Attempt Ref: [id number] Myrbetriq 50 mg tablet,extended release RxNorm: 2363889 1 Tablet(s) PO QPM 11/17/2016 12/10/2016 Inactive fentanyl 100 mcg/hr transdermal patch RxNorm: 251690 1 Patch TD Q72H 11/12/2016 12/11/2016 Inactive Vesicare 10 mg tablet RxNorm: 244926 1 Tablet(s) PO QPM 201611/18/2016 Inactive oxycodone 10 mg tablet RxNorm: 1297371 1-2 Tablet(s) PO Q4 PRN as needed to take between 30mg dose if needed for extra pain control 201612/07/2016 Inactive fentanyl 75 mcg/hr transdermal patch RxNorm: 013119 1 TD Q72H 10/22/2016 11/10/2016 Inactive oxycodone 10 mg tablet RxNorm: 6878528 1-2 Tablet(s) PO Q4 PRN as needed to take between 30mg dose if needed for extra pain control 201611/04/2016 Inactive Kenalog 40 mg/mL suspension for injection RxNorm: 0680892 1 Milliliter(s) Inj 10/02/2016 10/02/2016 Inactive Kenalog 40 mg/mL suspension for injection RxNorm: 5275925 1 Milliliter(s) Inj 09/12/2016 09/12/2016 Inactive cyclobenzaprine 5 mg tablet RxNorm: 404240 1 Tablet(s) PO Q8 as needed muscle spasms 09/11/2016 07/22/2017 Inactive prednisone 10 mg tablets in a dose pack RxNorm: 348672 1 Tablet(s) PO UD 09/09/2016 06/23/2017 Inactive potassium chloride ER 10 mEq capsule,extended release RxNorm: 816861 1 Capsule(s) PO BID as needed when taking lasix 08/26/2016 06/30/2017 Inactive Lasix 20 mg tablet RxNorm: 308898 1 Tablet(s) PO BID daily x 10 days then as needed edema 08/26/2016 12/23/2016 Inactive naproxen 500 mg tablet RxNorm: 428142 Take 1 tablet by mouth two times daily as needed 08/18/2016 11/15/2016 Inactive - First Attempt Ref: [id number] Lasix 20 mg tablet RxNorm: 565500 1 Tablet(s) PO QAM daily x 10 days then as needed edema 08/18/2016 08/25/2016 Inactive Vesicare 5 mg tablet RxNorm: 391882 1 Tablet(s) PO QPM 201611/04/2016 Inactive potassium chloride ER 10 mEq capsule,extended release RxNorm: 310938 1 Capsule(s) PO QAM as needed when taking lasix 08/18/2016 08/25/2016 Inactive Myrbetriq 25 mg tablet,extended release RxNorm: 7972561 1 Tablet(s) PO QHS 07/14/2016 07/29/2016 Inactive pantoprazole 40 mg tablet,delayed release RxNorm: 024194 Take 1 tablet by mouth daily 06/30/2016 12/26/2016 Inactive - Ref: [id number] Embeda 20 mg-0.8 mg capsule, extend release, oral only RxNorm: 836014 1 Capsule(s ) PO daily 06/04/2016 06/03/2016 Inactive Embeda 20 mg-0.8 mg capsule, extend release, oral only RxNorm: 726726 1 Capsule(s ) PO daily 06/04/2016 07/01/2016 Inactive oxycodone 10 mg tablet RxNorm: 1830291 1 Tablet(s) PO QID as needed to take between 30mg dose if needed for extra pain control 201606/10/2016 Inactive oxycodone 30 mg tablet RxNorm: 6894716 1 Tablet(s) PO Q6 201611/04/2016 Inactive cyanocobalamin (vit B-12) 1,000 mcg/mL injection solution RxNorm: 859362 1 Milliliter(s) Inj monthly 02/22/201602/15 Inactive she also needs syringes/ needles for this solution QS oxycodone 30 mg tablet RxNorm: 1091438 1 Tablet(s) PO Q6 201503/19/2016 Inactive oxycodone 10 mg tablet RxNorm: 3966331 1 Tablet(s) PO QID as needed to take between 30mg dose if needed for extra pain control 201503/19/2016 Inactive oxycodone 10 mg tablet RxNorm: 9004006 1 Tablet(s) PO QID as needed to take between 30mg dose if needed for extra pain control 201502/18/2016 Inactive oxycodone 30 mg tablet RxNorm: 0201061 1 Tablet(s) PO Q6 201502/18/2016 Inactive pantoprazole 40 mg tablet,delayed release RxNorm: 275190 Take 1 tablet by mouth daily 01/22/2016 06/29/2016 Inactive - First Attempt Ref: [id number] oxycodone 30 mg tablet RxNorm: 4373153 1 Tablet(s) PO Q6 201501/28/2016 Inactive oxycodone 10 mg tablet RxNorm: 1018115 1 Tablet(s) PO QID as needed take between 20mg dose if needed for extra pain control 11/07/2015 12/06/2015 Inactive oxycodone 20 mg tablet RxNorm: 1073629 1 Tablet(s) PO Q6 as needed 11/07/2015 12/31/2015 Inactive doxycycline hyclate 100 mg tablet RxNorm: 569131 1 Tablet(s) PO BID 11/01/2015 11/10/2015 Inactive potassium chloride ER 10 mEq capsule,extended release RxNorm: 194560 1 Capsule(s) PO TIW as needed when taking lasix 09/04/2015 08/17/2016 Inactive Voltaren 1 % topical gel RxNorm: 312967 2 Gram(s) TOP QID 08/2909/03/2015 Inactive pa approved Voltaren 1 % topical gel RxNorm: 524066 2 Gram(s) TOP QID 08/0808/29/2015 Inactive naproxen 500 mg tablet RxNorm: 673874 1 Tablet(s) PO BID 201508/17/2016 Inactive naproxen 500 mg tablet RxNorm: 259209 1 Tablet(s) PO BID 201508/08/2015 Inactive doxycycline hyclate 100 mg tablet RxNorm: 544021 1 Tablet(s) PO BID do not take calcium/vitamin d while on antibiotic 07/18/2015 07/31/2015 Inactive Vitamin D2 50,000 unit capsule RxNorm: 576839 1 Capsule(s) PO QW 07/02/2015 11/18/2015 Inactive Premarin 0.3 mg tablet RxNorm: 477054 1 Tablet(s) PO daily 12/201505/09/2015 Inactive Premarin 0.3 mg tablet RxNorm: 745583 1 Tablet(s) PO daily 12/201503/17/2016 Inactive simvastatin 40 mg tablet RxNorm: 682099 1 Tablet(s) PO daily 03/17/2016 Inactive spironolactone 25 mg tablet RxNorm: 070084 TAKE ONE TABLET BY MOUTH DAILY 05/07/2015 05/27/2016 Inactive potassium chloride ER 10 mEq capsule,extended release RxNorm: 514858 1 Capsule(s) PO TIW as needed when taking lasix 04/17/2015 09/03/2015 Inactive alendronate 70 mg tablet RxNorm: 159976 1 Tablet(s) PO weekly QW 04/17/2015 07/01/2015 Inactive Vitamin D2 50,000 unit capsule RxNorm: 522458 1 Capsule(s) PO QW 03/30/2015 06/27/2015 Inactive Vitamin D2 50,000 unit capsule RxNorm: 763485 1 Capsule(s) PO QW 03/21/2015 03/29/2015 Inactive cyanocobalamin (vit B-12) 1,000 mcg/mL injection solution RxNorm: 782365 1 Milliliter(s) Inj monthly 03/19/201502/20 Inactive cyanocobalamin (vit B-12) 1,000 mcg/mL injection solution RxNorm: 419022 1 Milliliter(s) Inj monthly 03/16/201503/18 Inactive cyanocobalamin (vit B-12) 1,000 mcg/mL injection solution RxNorm: 929215 1 Milliliter(s) Inj monthly 03/16/201503/15 Inactive pantoprazole 40 mg tablet,delayed release RxNorm: 793491 1 Tablet(s) PO daily 03/05/2015 01/21/2016 Inactive Lasix 20 mg tablet RxNorm: 826893 1 Tablet(s) PO TIW as needed edema 02/08/2015 02/02/2016 Inactive oxycodone 10 mg tablet RxNorm: 0954883 1 Tablet(s) PO QID as needed take between 20mg dose if needed for extra pain control 11/09/2014 12/08/2014 Inactive oxycodone 20 mg tablet RxNorm: 4858889 1 Tablet(s) PO Q6 as needed 10/25/2014 11/06/2015 Inactive doxycycline hyclate 100 mg tablet RxNorm: 032360 1 Tablet(s) PO BID 10/23/2014 11/19/2014 Inactive Cipro 500 mg tablet RxNorm: 676743 1 Tablet(s) PO BID 201410/16/2014 Inactive Cipro 500 mg tablet RxNorm: 031773 1 Tablet(s) PO BID 201410/09/2014 Inactive oxycodone 20 mg tablet RxNorm: 2774625 1 Tablet(s) PO Q6 as needed 09/25/2014 10/24/2014 Inactive Lasix 20 mg tablet RxNorm: 013867 1 Tablet(s) PO TIW as needed edema 09/14/2014 01/11/2015 Inactive potassium chloride ER 10 mEq capsule,extended release RxNorm: 072275 1 Capsule(s) PO TIW as needed when taking lasix 09/14/2014 01/11/2015 Inactive doxycycline hyclate 100 mg tablet RxNorm: 200632 1 Tablet(s) PO BID 09/05/2014 09/14/2014 Inactive doxycycline hyclate 100 mg tablet RxNorm: 215769 1 Tablet(s) PO BID 09/05/2014 09/04/2014 Inactive oxycodone 20 mg tablet RxNorm: 0519241 1 Tablet(s) PO Q6 as needed 08/29/2014 09/24/2014 Inactive spironolactone 25 mg tablet RxNorm: 808110 1 Tablet(s) PO daily 08/11/2014 03/08/2015 Inactive oxycodone 20 mg tablet RxNorm: 5373389 1 Tablet(s) PO Q6 as needed 08/02/2014 08/28/2014 Inactive Vitamin D3 2,000 unit tablet RxNorm: 670718 1 Tablet(s) PO daily 07/14/2014 No Stop Date Active Vitamin D2 50,000 unit capsule RxNorm: 461083 1 Capsule(s) PO QW 07/14/2014 10/11/2014 Inactive Vitamin D2 50,000 unit capsule RxNorm: 722352 1 Capsule(s) PO QW 07/14/2014 07/13/2014 Inactive Prolia 60 mg/mL subcutaneous syringe RxNorm: 750825 Milliliter(s) SQ EVERY 6 MONTHS No Start Date Active Carafate 1 gram tablet RxNorm: 470981 1 Tablet(s) PO BID No Start Date Active Miralax oral RxNorm: 812479 oral No Start Date Active Stool Softener oral RxNorm: 71293 oral No Start Date Active Calcium + Vitamin D oral RxNorm: 4018 oral No Start Date Active naproxen 500 mg tablet RxNorm: 901637 1 Tablet(s) PO BID No Start Date 08/05/2015 Inactive albuterol sulfate 2.5 mg/3 mL (0.083 %) solution for nebulization RxNorm: 209699 3 Milliliter(s) INH Q4 PRN No Start Date 02/17/2018 Inactive oxycodone 20 mg tablet RxNorm: 4770911 1 Tablet(s) PO Q6 as needed No Start Date 08/01/2014 Inactive aspirin 81 mg tablet RxNorm: 769247 1 Tablet(s) PO daily No Start Date 07/22/2017 Inactive simvastatin 40 mg tablet RxNorm: 511194 1 Tablet(s) PO daily No Start Date 05/09/2015 Inactive cyanocobalamin (vit B-12) 1,000 mcg/mL injection syringe RxNorm: 280333 1 Inj monthly No Start Date 02/15/2017 Inactive Reglan 10 mg tablet RxNorm: 439785 1 Tablet(s) PO as needed No Start Date 07/29/2016 Inactive alendronate 70 mg tablet RxNorm: 651891 1 Tablet(s) PO weekly No Start Date 04/16/2015 Inactive Protonix 40 mg tablet,delayed release RxNorm: 402227 1 Tablet(s) PO daily No Start Date 03/04/2015 Inactive cyclobenzaprine 5 mg tablet RxNorm: 912492 1 Tablet(s) PO Q8 as needed muscle spasms No Start Date 09/10/2016 Inactive Vitamin D3 1,000 unit capsule RxNorm: 653874 1 Capsule(s) PO daily No Start Date 07/13/2014 Inactive Cardizem CD 360 mg capsule,extended release RxNorm: 604575 1 Capsule(s) PO daily No Start Date 01/04/2018 Inactive prednisone 10 mg tablets in a dose pack RxNorm: 741159 1 Tablet(s) PO UD No Start Date 09/08/2016 Inactive Medication Administered Medication Codes Instructions Start Date Status promethazine 25 mg/mL injection solution RxNorm: 683941 Milliliter 04/21/2018 No longer Active Kenalog 40 mg/mL suspension for injection RxNorm: 9198477 1Milliliter 08/31/2017 No longer Active Kenalog 40 mg/mL suspension for injection RxNorm: 6194059 2Milliliter 08/21/2017 No longer Active Kenalog 40 mg/mL suspension for injection RxNorm: 8457525 2MilliliterUD 08/12/2017 No longer Active Kenalog 40 mg/mL suspension for injection RxNorm: 8792486 2Milliliter 08/05/2017 No longer Active Kenalog 40 mg/mL suspension for injection RxNorm: [id number] 1.5Milliliter 04/02/2017 No longer Active Kenalog 40 mg/mL suspension for injection RxNorm: [id number] 1Milliliter 10/02/2016 No longer Active Kenalog 40 mg/mL suspension for injection RxNorm: [id number] 1Milliliter 09/12/2016 No longer Active Immunizations Vaccine Codes Date Status Influenza CVX: 141 12/03/2017 completed Influenza CVX: 141 12/08/2016 completed Influenza CVX: 141 11/19/2015 completed Influenza CVX: 141 01/10/2015 completed Pneumococcal (Adult) CVX: 133 12/11/2014 completed Pneumococcal (Adult) CVX: 133 12/11/2014 completed Assessments Condition Codes Effective Dates Chronic pain syndrome ICD-10: G89.4 ICD-9: 338.4 06/01/2018 Primary osteoarthritis, left shoulder ICD-10: M19.012 ICD-9: 715.91 06/01/2018 Essential (primary) hypertension ICD-10: I10 ICD-9: 401.1 06/01/2018 Primary osteoarthritis, 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 ICD-9: 715.91 06/01/2018 First degree hemorrhoids ICD-10: K64.0 ICD-9: 455.0 05/10/2018 Other specified diseases of anus and rectum ICD-10: K62.89 ICD-9: 569.42 05/10/2018 Slow transit constipation ICD-10: K59.01 ICD-9: 564.01 05/04/2018 Sciatica, right side ICD-10: M54.31 ICD-9: 724.3 05/04/2018 Diarrhea, unspecified ICD-10: R19.7 ICD-9: 787.91 04/21/2018 Other specified intestinal infections ICD-10: A08.8 ICD-9: 009.0 04/21/2018 Hypo-osmolality and hyponatremia ICD-10: E87.1 ICD-9: 276.1 03/03/2018 Cough ICD-10: R05 ICD-9: 786.2 02/12/2018 Chronic obstructive pulmonary disease, unspecified ICD-10: J44.9 ICD-9: 496 02/12/2018 Acute bronchitis, unspecified ICD-10: J20.9 ICD-9: 466.0 02/12/2018 Generalized edema ICD-10: R60.1 ICD-9: 782.3 02/09/2018 Lymphedema, not elsewhere classified ICD-10: I89.0 ICD-9: 457.1 01/14/2018 Pain in left shoulder ICD-10: M25.512 ICD-9: 719.41 11/10/2017 Rheumatoid arthritis without rheumatoid factor, right shoulder ICD-10: M06.011 ICD-9: 714.0 11/10/2017 Rheumatoid arthritis without rheumatoid factor, left shoulder ICD-10: M06.012 ICD-9: 714.0 11/10/2017 Pain in right shoulder ICD-10: M25.511 [...] Visit Reason For Visit Effective Dates Notes pain 06/01/2018 melena 05/10/2018 pain 05/04/2018 nausea 04/21/2018 vomiting diarrhea 03/03/2018 cough 02/12/2018 Hospital Follow Up 02/09/2018 edema 01/14/2018 Hospital Follow Up 12/24/2017 rheumatoid [...] Item Item Code Result Date Comp Metabolic Lqx852 NA 134 mEq/L 03/03/2018 Comp Metabolic Gxh729 K 3.3 mEq/L 03/03/2018 Comp Metabolic Upi028 CL 90 mEq/L 03/03/2018 Comp Metabolic Zpi118 CO2 33.0 mEq/L 03/03/2018 Comp Metabolic Ebw822 ANION GAP 14 03/03/2018 Comp Metabolic Gyx242 GLUCOSE 146 mg/dL 03/03/2018 Comp Metabolic Hza109 Creat 1.7 mg/dL 03/03/2018 Comp Metabolic Rom464 eGFR 31 ml/min/1.73m2 03/03/2018 Comp Metabolic Zyd368 BUN 74 mg/dL 03/03/2018 Comp Metabolic Yng482 B/C Ratio 43.8 Ratio 03/03/2018 Comp Metabolic Yrx136 CALCIUM 8.6 mg/dL 03/03/2018 Comp Metabolic Hjv834 ALK PHOS 70 U/L 03/03/2018 Comp Metabolic Hhz554 AST(SGOT) 14 U/L 03/03/2018 Comp Metabolic Ess581 ALT(SGPT) 9 U/L 03/03/2018 Comp Metabolic Vnd544 BILI T 0.6 mg/dL 03/03/2018 Comp Metabolic Hzn308 ALBUMIN 3.8 g/dL 03/03/2018 Comp Metabolic Vsg776 TPRO 6.7 g/dL 03/03/2018 Comp Metabolic Rjj585 GLOB 2.9 g/dL 03/03/2018 Comp Metabolic Yer125 A/G Ratio 1.3 Ratio 03/03/2018 Comp Metabolic Gaj757 Osmo 293 mOsmo 03/03/2018 Cbc With Differential Ord2 WBC 8.26 K/ul 03/03/2018 Cbc With Differential Ord2 RBC 3.58 M/ul 03/03/2018 Cbc With Differential Ord2 HGB 10.7 g/dl 03/03/2018 Cbc With Differential Ord2 HCT 33.7 % 03/03/2018 Cbc With Differential Ord2 Neut% 71.1 % 03/03/2018 Cbc With Differential Ord2 MCV 94.1 fl 03/03/2018 Cbc With Differential Ord2 Lymph% 16.7 % 03/03/2018 Cbc With Differential Ord2 MCH 29.9 pg 03/03/2018 Cbc With Differential Ord2 King% 11.1 % 03/03/2018 Cbc With Differential Ord2 MCHC 31.8 pg 03/03/2018 Cbc With Differential Ord2 Eos% 0.4 % 03/03/2018 Cbc With Differential Ord2 PLT 341 K/ul 03/03/2018 Cbc With Differential Ord2 Baso% 0.7 % 03/03/2018 Cbc With Differential Ord2 RDW 16.4 % 03/03/2018 Cbc With Differential Ord2 Neut ABS# 5.87 K/ul 03/03/2018 Cbc With Differential Ord2 Lymph ABS# 1.38 K/ul 03/03/2018 Cbc With Differential Ord2 King ABS# 0.9 K/ul 03/03/2018 Cbc With Differential Ord2 Eos ABS# 0.0 K/ul 03/03/2018 Cbc With Differential Ord2 Baso ABS# 0.1 K/ul 03/03/2018 Tibc Ord40 Iron 75 ug/dl 10/22/2017 Tibc Ord40 UIBC 270 ug/dL 10/22/2017 Tibc Ord40 TIBC 345 ug/dL 10/22/2017 Tibc Ord40 Fe-%Sat 21.7 % 10/22/2017 Prealbumin 216639 PREALBUMIN 33 mg/dL 10/21/2017 Comp Metabolic Npd615 NA 134 mEq/L 10/20/2017 Comp Metabolic Lzy017 K 3.7 mEq/L 10/20/2017 Comp Metabolic Xbl723 CL 93 mEq/L 10/20/2017 Comp Metabolic Ovu771 CO2 29.0 mEq/L 10/20/2017 Comp Metabolic Agl935 ANION GAP 16 10/20/2017 Comp Metabolic Zaa591 GLUCOSE 115 mg/dL 10/20/2017 Comp Metabolic Feu167 Creat 0.8 mg/dL 10/20/2017 Comp Metabolic Rue128 eGFR 73 ml/min/1.73m2 10/20/2017 Comp Metabolic Ezx772 BUN 46 mg/dL 10/20/2017 Comp Metabolic Jhl048 B/C Ratio 57.5 Ratio 10/20/2017 Comp Metabolic Rvj533 CALCIUM 8.7 mg/dL 10/20/2017 Comp Metabolic Ref422 ALK PHOS 56 U/L 10/20/2017 Comp Metabolic Whh357 AST(SGOT) 19 U/L 10/20/2017 Comp Metabolic Bjp399 ALT(SGPT) 23 U/L 10/20/2017 Comp Metabolic Vnu691 BILI T 0.6 mg/dL 10/20/2017 Comp Metabolic Usg946 ALBUMIN 4.0 g/dL 10/20/2017 Comp Metabolic Dof485 TPRO 6.6 g/dL 10/20/2017 Comp Metabolic Bdg689 GLOB 2.7 g/dL 10/20/2017 Comp Metabolic Xil427 A/G Ratio 1.5 Ratio 10/20/2017 Comp Metabolic Qkh460 Osmo 281 mOsmo 10/20/2017 Tsh Ord6 TSH [...] 18.4 % 10/20/2017 Cbc With Differential Ord2 MCH 35.4 pg 10/20/2017 Cbc With Differential Ord2 King% 9.9 % 10/20/2017 Cbc With Differential Ord2 MCHC 32.8 pg 10/20/2017 Cbc With Differential Ord2 Eos% 0.0 % 10/20/2017 Cbc With Differential Ord2 PLT 262 K/ul 10/20/2017 Cbc With Differential Ord2 Baso% 0.2 % 10/20/2017 Cbc With Differential Ord2 RDW 13.4 % 10/20/2017 Cbc With Differential Ord2 Neut ABS# 4.46 K/ul 10/20/2017 Cbc With Differential Ord2 Lymph ABS# 1.15 K/ul 10/20/2017 Cbc With Differential Ord2 King ABS# 0.6 K/ul 10/20/2017 Cbc With Differential Ord2 Eos ABS# 0.0 K/ul 10/20/2017 Cbc With Differential Ord2 Baso ABS# 0.0 K/ul 10/20/2017 Iron Ord72 Iron 75 ug/dl 10/20/2017 Romie Reflex Profile [id number] ROMIE (BRYANNA) SCREEN NONE DETECTED 01/12/2017 Comp Metabolic Ard291 NA 129 mEq/L 01/08/2017 Comp Metabolic Rvb317 K 3.9 mEq/L 01/08/2017 Comp Metabolic Gck474 CL 94 mEq/L 01/08/2017 Comp Metabolic Bdx685 CO2 31.0 mEq/L 01/08/2017 Comp Metabolic Bjs972 ANION GAP 8 01/08/2017 Comp Metabolic Vol315 GLUCOSE 103 mg/dL 01/08/2017 Comp Metabolic Mkp253 Creat 0.9 mg/dL 01/08/2017 Comp Metabolic Hjt689 eGFR 61 ml/min/1.73m2 01/08/2017 Comp Metabolic Knc223 BUN 29 mg/dL 01/08/2017 Comp Metabolic Vqv926 B/C Ratio 30.9 Ratio 01/08/2017 Comp Metabolic Znq496 CALCIUM 8.5 mg/dL 01/08/2017 Comp Metabolic Zpc288 ALK PHOS 58 U/L 01/08/2017 Comp Metabolic Fcz995 AST(SGOT) 17 U/L 01/08/2017 Comp Metabolic Nzu488 ALT(SGPT) 10 U/L 01/08/2017 Comp Metabolic Cpn346 BILI T 0.4 mg/dL 01/08/2017 Comp Metabolic Bhq641 ALBUMIN 3.0 g/dL 01/08/2017 Comp Metabolic Qop946 TPRO 5.5 g/dL 01/08/2017 Comp Metabolic Vdg511 GLOB 2.5 g/dL 01/08/2017 Comp Metabolic Jlr710 A/G Ratio 1.2 Ratio 01/08/2017 Comp Metabolic Lrz943 Osmo 265 mOsmo 01/08/2017 Cbc With Differential Ord2 WBC 6.95 K/ul 01/08/2017 Cbc With Differential Ord2 RBC 3.20 M/ul 01/08/2017 Cbc With Differential Ord2 HGB 10.8 g/dl 01/08/2017 Cbc With Differential Ord2 HCT 32.7 % 01/08/2017 Cbc With Differential Ord2 Neut% 62.9 % 01/08/2017 Cbc With Differential Ord2 MCV 102.2 fl 01/08/2017 Cbc With Differential Ord2 Lymph% 23.3 % 01/08/2017 Cbc With Differential Ord2 MCH 33.8 pg 01/08/2017 Cbc With Differential Ord2 King% 12.2 % 01/08/2017 Cbc With Differential Ord2 MCHC 33.0 pg 01/08/2017 Cbc With Differential Ord2 Eos% 0.9 % 01/08/2017 Cbc With Differential Ord2 PLT 211 K/ul 01/08/2017 Cbc With Differential Ord2 Baso% 0.7 % 01/08/2017 Cbc With Differential Ord2 RDW 13.6 % 01/08/2017 Cbc With Differential Ord2 Neut ABS# 4.37 K/ul 01/08/2017 Cbc With Differential Ord2 Lymph ABS# 1.62 K/ul 01/08/2017 Cbc With Differential Ord2 King ABS# 0.9 K/ul 01/08/2017 Cbc With Differential [...] 33.1 pg 11/10/2016 Cbc With Differential Ord2 King% 9.1 % 11/10/2016 Cbc With Differential Ord2 [...] 0.78 K/ul 11/10/2016 Cbc With Differential Ord2 King ABS# 0.5 K/ul 11/10/2016 Cbc With Differential Ord2 Eos ABS# 0.0 K/ul 11/10/2016 Cbc With Differential Ord2 Baso ABS# 0.0 K/ul 11/10/2016 Cbc With Differential Ord2 WBC 8.03 K/ul 10/07/2016 Cbc With Differential Ord2 RBC 3.27 M/ul 10/07/2016 Cbc With Differential Ord2 HGB 9.9 g/dl 10/07/2016 Cbc With Differential Ord2 HCT 31.2 % 10/07/2016 Cbc With Differential Ord2 Neut% 67.7 % 10/07/2016 Cbc With Differential Ord2 MCV 95.4 fl 10/07/2016 Cbc With Differential Ord2 Lymph% 19.2 % 10/07/2016 Cbc With Differential Ord2 MCH 30.3 pg 10/07/2016 Cbc With Differential Ord2 King% 11.8 % 10/07/2016 Cbc With Differential Ord2 MCHC 31.7 pg 10/07/2016 Cbc With Differential Ord2 Eos% 1.1 % 10/07/2016 Cbc With Differential Ord2 PLT 570 K/ul 10/07/2016 Cbc With Differential Ord2 Baso% 0.2 % 10/07/2016 Cbc With Differential Ord2 RDW 18.2 % 10/07/2016 Cbc With Differential Ord2 Neut ABS# 5.43 K/ul 10/07/2016 Cbc With Differential Ord2 Lymph ABS# 1.54 K/ul 10/07/2016 Cbc With Differential Ord2 King ABS# 1.0 K/ul 10/07/2016 Cbc With Differential Ord2 Eos ABS# 0.1 K/ul 10/07/2016 Cbc With Differential Ord2 Baso ABS# 0.0 K/ul 10/07/2016 Comp Metabolic Mot770 NA 129 mEq/L 08/26/2016 Comp Metabolic Tqo365 K 3.9 mEq/L 08/26/2016 Comp Metabolic Izu056 CL 93 mEq/L 08/26/2016 Comp Metabolic Tcy378 CO2 30.0 mEq/L 08/26/2016 Comp Metabolic Aip961 ANION GAP 10 08/26/2016 Comp Metabolic Gsw472 GLUCOSE 87 mg/dL 08/26/2016 Comp Metabolic Cvk577 Creat 0.6 mg/dL 08/26/2016 Comp Metabolic Gap298 eGFR 96 ml/min/1.73m2 08/26/2016 Comp Metabolic Ref344 BUN 17 mg/dL 08/26/2016 Comp Metabolic Jww139 B/C Ratio 27.0 Ratio 08/26/2016 Comp Metabolic Trx811 CALCIUM 7.6 mg/dL 08/26/2016 Comp Metabolic Usn610 ALK PHOS 72 U/L 08/26/2016 Comp Metabolic Ovc432 AST(SGOT) 20 U/L 08/26/2016 Comp Metabolic Wjd883 ALT(SGPT) 12 U/L 08/26/2016 Comp Metabolic Yzo852 BILI T 0.3 mg/dL 08/26/2016 Comp Metabolic Rhd224 ALBUMIN 2.7 g/dL 08/26/2016 Comp Metabolic Rkb045 TPRO 5.3 g/dL 08/26/2016 Comp Metabolic Vxo776 GLOB 2.6 g/dL 08/26/2016 Comp Metabolic Wgb147 A/G Ratio 1.1 Ratio 08/26/2016 Comp Metabolic Azx086 Osmo 260 mOsmo 08/26/2016 Cbc With Differential Ord2 WBC 9.86 K/ul 08/26/2016 Cbc With Differential Ord2 RBC 2.93 M/ul 08/26/2016 Cbc With Differential Ord2 HGB 8.3 g/dl 08/26/2016 Cbc With Differential Ord2 HCT 26.0 % 08/26/2016 Cbc With Differential Ord2 Neut% 70.9 % 08/26/2016 Cbc With Differential Ord2 MCV 88.7 fl 08/26/2016 Cbc With Differential Ord2 Lymph% 18.6 % 08/26/2016 Cbc With Differential Ord2 MCH 28.3 pg 08/26/2016 Cbc With Differential Ord2 King% 9.6 % 08/26/2016 Cbc With Differential Ord2 MCHC 31.9 pg 08/26/2016 Cbc With Differential Ord2 Eos% 0.5 % 08/26/2016 Cbc With Differential Ord2 PLT 442 K/ul 08/26/2016 Cbc With Differential Ord2 Baso% 0.4 % 08/26/2016 Cbc With Differential Ord2 RDW 14.1 % 08/26/2016 Cbc With Differential Ord2 Neut ABS# 6.99 K/ul 08/26/2016 Cbc With Differential Ord2 Lymph ABS# 1.83 K/ul 08/26/2016 Cbc With Differential Ord2 King ABS# 1.0 K/ul 08/26/2016 Cbc With Differential Ord2 Eos ABS# 0.1 K/ul 08/26/2016 Cbc With Differential Ord2 Baso ABS# 0.0 K/ul 08/26/2016 Magnesium Ord90 Mag 1.9 mg/dL 08/26/2016 Vitamin D 25 Oh Kec5309 VITAMIN D, 25 HYDROXY 34.59 ng/mL Tibc Ord40 Iron 13 ug/dl 08/26/2016 Tibc Ord40 UIBC 283 ug/dL 08/26/2016 Tibc Ord40 TIBC 296 ug/dL 08/26/2016 Tibc Ord40 Fe-%Sat 4.4 % 08/26/2016 Ferritin Ord22 FERRITIN 28.8 ng/mL 08/26/2016 Sed Rate Ord21 ESR 20 mm/hr 11/19/2015 Comp Metabolic Lrv285 NA 131 mEq/L 08/22/2015 Comp Metabolic Glc392 K 4.2 mEq/L 08/22/2015 Comp Metabolic Xse346 CL 98 mEq/L 08/22/2015 Comp Metabolic Vxe278 CO2 27.0 mEq/L 08/22/2015 Comp Metabolic Dye690 ANION GAP 10 08/22/2015 Comp Metabolic Ujd804 GLUCOSE 80 mg/dL 08/22/2015 Comp Metabolic Rxi727 Creat 0.5 mg/dL 08/22/2015 Comp Metabolic Gnb748 eGFR 120 ml/min/1.73m2 08/22/2015 Comp Metabolic Cke272 BUN 13 mg/dL 08/22/2015 Comp Metabolic Cub635 B/C Ratio 25.0 Ratio 08/22/2015 Comp Metabolic Eez604 CALCIUM 8.2 mg/dL 08/22/2015 Comp Metabolic Bet613 ALK PHOS 49 U/L 08/22/2015 Comp Metabolic Aru697 AST(SGOT) 18 U/L 08/22/2015 Comp Metabolic Ikn394 ALT(SGPT) 11 U/L 08/22/2015 Comp Metabolic Kep537 BILI T 0.5 mg/dL 08/22/2015 Comp Metabolic Ldf596 ALBUMIN 3.5 g/dL 08/22/2015 Comp Metabolic Kxm793 TPRO 6.2 g/dL 08/22/2015 Comp Metabolic Los968 GLOB 2.7 g/dL 08/22/2015 Comp Metabolic Nrm793 A/G Ratio 1.3 Ratio 08/22/2015 Comp Metabolic Xco784 Osmo 262 mOsmo 08/22/2015 Cbc With Differential [...] 21.4 % 08/22/2015 Cbc With Differential Ord2 MCH 32.4 pg 08/22/2015 Cbc With Differential Ord2 King% 10.3 % 08/22/2015 Cbc With Differential Ord2 MCHC 33.2 pg 08/22/2015 Cbc With Differential Ord2 Eos% 1.1 % 08/22/2015 Cbc With Differential Ord2 PLT 255 K/ul 08/22/2015 Cbc With Differential Ord2 Baso% 0.5 % 08/22/2015 Cbc With Differential Ord2 RDW 13.6 % 08/22/2015 Cbc With Differential Ord2 Neut ABS# 4.34 K/ul 08/22/2015 Cbc With Differential Ord2 Lymph ABS# 1.39 K/ul 08/22/2015 Cbc With Differential Ord2 King ABS# 0.7 K/ul 08/22/2015 Cbc With Differential Ord2 Eos ABS# 0.1 K/ul 08/22/2015 Cbc With Differential Ord2 Baso ABS# 0.0 K/ul 08/22/2015 Tsh Ord6 hTSH II 2.19 uIU/mL 08/22/2015 Vitamin D 25 Oh Dln9081 VITAMIN D, 25 HYDROXY 55.10 ng/mL Lipid [...] 1.5 Ratio 03/16/2015 Vitamin D 25 Oh Uug7120 VITAMIN D, 25 HYDROXY 28.94 ng/mL Cbc [...] 28.1 pg 03/16/2015 Cbc With Differential Ord2 King% 11.2 % 03/16/2015 Cbc With Differential Ord2 MCHC 31.9 pg 03/16/2015 Cbc With Differential Ord2 Eos% 1.2 % 03/16/2015 Cbc With Differential Ord2 PLT 346 K/ul 03/16/2015 Cbc With Differential Ord2 Baso% 0.4 % 03/16/2015 Cbc With Differential Ord2 RDW 13.2 % 03/16/2015 Cbc With Differential Ord2 Neut ABS# 4.09 K/ul 03/16/2015 Cbc With Differential Ord2 Lymph ABS# 2.37 K/ul 03/16/2015 Cbc With Differential Ord2 King ABS# 0.8 K/ul 03/16/2015 Cbc With Differential Ord2 Eos ABS# 0.1 K/ul 03/16/2015 Cbc With Differential Ord2 Baso ABS# 0.0 K/ul 03/16/2015 Cbc With Differential Ord2 New Analyzer Notice Please note new ref ranges starting 03-14-2015 due to implemntation of new five part differential hematolgy analyzer. 03/16/2015 Comp Metabolic Wyr862 NA 131 mEq/L 03/16/2015 Comp Metabolic Qbu484 K 4.1 mEq/L 03/16/2015 Comp Metabolic Zmq313 CL 94 mEq/L 03/16/2015 Comp Metabolic Igy854 CO2 28.0 mEq/L 03/16/2015 Comp Metabolic Hoj552 ANION GAP 13 03/16/2015 Comp Metabolic Hod164 GLUCOSE 96 mg/dL 03/16/2015 Comp Metabolic Vcn442 Creat 0.7 mg/dL 03/16/2015 Comp Metabolic Ble619 eGFR 80 ml/min/1.73m2 03/16/2015 Comp Metabolic Ljp320 BUN 16 mg/dL 03/16/2015 Comp Metabolic Bmn230 B/C Ratio 21.6 Ratio 03/16/2015 Comp Metabolic Wku498 CALCIUM 8.9 mg/dL 03/16/2015 Comp Metabolic Efm136 ALK PHOS 44 U/L 03/16/2015 Comp Metabolic Eca126 AST(SGOT) 22 U/L 03/16/2015 Comp Metabolic Awl763 ALT(SGPT) 14 U/L 03/16/2015 Comp Metabolic Qhr752 BILI T 0.5 mg/dL 03/16/2015 Comp Metabolic Dsr933 ALBUMIN 3.4 g/dL 03/16/2015 Comp Metabolic Ztu098 TPRO 6.0 g/dL 03/16/2015 Comp Metabolic Nuw560 GLOB 2.6 g/dL 03/16/2015 Comp Metabolic Axk571 A/G Ratio 1.3 Ratio 03/16/2015 Comp Metabolic Kjq709 Osmo 264 mOsmo 03/16/2015 Comp Metabolic Nmm976 NA 129 mEq/L 11/09/2014 Comp Metabolic Rqs920 K 4.2 mEq/L 11/09/2014 Comp Metabolic Nje925 CL 96 mEq/L 11/09/2014 Comp Metabolic Xsd784 CO2 27.0 mEq/L 11/09/2014 Comp Metabolic Rvu333 ANION GAP 10 11/09/2014 Comp Metabolic Hsa078 GLUCOSE 144 mg/dL 11/09/2014 Comp Metabolic Ojw290 Creat 0.8 mg/dL 11/09/2014 Comp Metabolic Aok104 eGFR 73 ml/min/1.73m2 11/09/2014 Comp Metabolic Szq382 BUN 22 mg/dL 11/09/2014 Comp Metabolic Tjx236 B/C Ratio 27.5 Ratio 11/09/2014 Comp Metabolic Vaw870 CALCIUM 8.6 mg/dL 11/09/2014 Comp Metabolic Oru864 ALK PHOS 55 U/L 11/09/2014 Comp Metabolic Kpu615 AST(SGOT) 27 U/L 11/09/2014 Comp Metabolic Lys021 ALT(SGPT) 18 U/L 11/09/2014 Comp Metabolic Tan488 BILI T 0.5 mg/dL 11/09/2014 Comp Metabolic Zej731 ALBUMIN 3.0 g/dL 11/09/2014 Comp Metabolic Eaz453 TPRO 5.4 g/dL 11/09/2014 Comp Metabolic Wjx243 GLOB 2.4 g/dL 11/09/2014 Comp Metabolic Nfp124 A/G Ratio 1.3 Ratio 11/09/2014 Comp Metabolic Grm699 Osmo 265 mOsmo 11/09/2014 Magnesium Ord90 Mag 1.8 mg/dL 11/09/2014 Review of Systems System Result Effective Dates Constitutional No recent illness 2018 Constitutional No fatigue 06/01/2018 Constitutional No fever 06/01/2018 Eyes No blindness 06/01/2018 Ears/Nose/Throat/Neck No nasal discharge 06/01/2018 Cardiovascular No chest pain/pressure 04/2018 Cardiovascular edema 06/01/2018 Respiratory No cough 06/01/2018 Gastrointestinal No hemorrhoids 2018 Musculoskeletal stiffness 06/01/2018 Musculoskeletal swelling 06/01/2018 Musculoskeletal joint complaint 2018 Musculoskeletal shoulder pain 06/01/2018 Dermatologic No rash 06/01/2018 Dermatologic No sores 06/01/2018 Neurologic No alteration of consciousness 06/01/2018 Neurologic No mental status change 2018 Psychiatric No anxiety 06/01/2018 Psychiatric No depression 06/01/2018 Constitutional No recent illness 2018 Constitutional fatigue 05/10/2018 Psychiatric No anxiety 05/10/2018 Genitourinary/Nephrology urinary incontinence 05/10/2018 Gastrointestinal hemorrhoids 05/10/2018 Gastrointestinal hematochezia 05/10/2018 Constitutional No recent illness 2018 Constitutional No fatigue 05/04/2018 Constitutional No fever 05/04/2018 Eyes No blindness 05/04/2018 Ears/Nose/Throat/Neck No nasal discharge 05/04/2018 Cardiovascular No chest pain/pressure 06/2018 Cardiovascular edema 05/04/2018 Respiratory No cough 05/04/2018 Gastrointestinal No hemorrhoids 2018 Musculoskeletal stiffness 05/04/2018 Musculoskeletal swelling 05/04/2018 Musculoskeletal shoulder pain 05/04/2018 Neurologic No alteration of consciousness 05/04/2018 Neurologic No mental status change 2018 Psychiatric No anxiety 05/04/2018 Psychiatric No depression 05/04/2018 Musculoskeletal joint complaint 2018 Musculoskeletal back pain 05/04/2018 Musculoskeletal sciatica 05/04/2018 Dermatologic No rash 05/04/2018 Dermatologic No sores 05/04/2018 Constitutional recent illness 04/21/2018 Constitutional No chills 04/21/2018 Constitutional No diaphoresis 04/21/2018 Constitutional fatigue 04/21/2018 Constitutional No fever 04/21/2018 Constitutional malaise 04/21/2018 Ears/Nose/Throat/Neck No otalgia 2018 Cardiovascular No chest pain/pressure Respiratory cough 04/21/2018 Gastrointestinal abdominal pain 2018 Gastrointestinal No constipation 2018 Gastrointestinal No diarrhea 04/21/2018 Musculoskeletal stiffness 04/21/2018 Musculoskeletal swelling 04/21/2018 Musculoskeletal joint complaint 2018 Neurologic No alteration of consciousness 04/21/2018 Eyes No eye erythema 04/21/2018 Ears/Nose/Throat/Neck No nasal discharge 04/21/2018 Ears/Nose/Throat/Neck No postnasal drip 04/21/2018 Ears/Nose/Throat/Neck No sinus congestion 04/21/2018 Gastrointestinal vomiting 04/21/2018 Gastrointestinal nausea 04/21/2018 Gastrointestinal No melena 04/21/2018 Neurologic No mental status change 2018 Constitutional recent illness 03/03/2018 Constitutional No chills 03/03/2018 Constitutional No diaphoresis 03/03/2018 Constitutional fatigue 03/03/2018 Constitutional No fever 03/03/2018 Constitutional No insomnia 03/03/2018 Constitutional No malaise 03/03/2018 Ears/Nose/Throat/Neck headache 2018 Ears/Nose/Throat/Neck No otalgia 2018 Ears/Nose/Throat/Neck sore throat 2018 Cardiovascular No chest pain/pressure 04/2018 Cardiovascular edema 03/03/2018 Respiratory cough 03/03/2018 Gastrointestinal No abdominal pain 2018 Gastrointestinal constipation 03/03/2018 Gastrointestinal diarrhea 03/03/2018 Musculoskeletal stiffness 03/03/2018 Musculoskeletal swelling 03/03/2018 Musculoskeletal joint complaint 2018 Dermatologic No rash 03/03/2018 Neurologic No alteration of consciousness 03/03/2018 Psychiatric No anxiety 03/03/2018 Psychiatric No depression 03/03/2018 Constitutional recent illness 02/12/2018 Constitutional No anorexia 02/12/2018 Constitutional No night sweats 2017 Constitutional No chills 02/12/2018 Constitutional No diaphoresis 02/12/2018 Constitutional fatigue 02/12/2018 Constitutional No fever 02/12/2018 Constitutional No insomnia 02/12/2018 Constitutional No malaise 02/12/2018 Constitutional No weight gain 02/12/2018 Constitutional No weight loss 02/12/2018 Eyes No eye discharge 02/12/2018 Eyes No eye erythema 02/12/2018 Ears/Nose/Throat/Neck No dizziness 2017 Ears/Nose/Throat/Neck headache 2017 Ears/Nose/Throat/Neck nasal discharge Ears/Nose/Throat/Neck No otalgia 2017 Ears/Nose/Throat/Neck sinus congestion Ears/Nose/Throat/Neck sore throat 2017 Cardiovascular No chest pain/pressure Cardiovascular No dyspnea 02/12/2018 Respiratory cough 02/12/2018 Respiratory No productive sputum 2017 Gastrointestinal No abdominal pain 2017 Gastrointestinal No constipation 2017 Gastrointestinal No diarrhea 02/12/2018 Genitourinary/Nephrology No dysuria 02/12 Musculoskeletal joint complaint 2017 Dermatologic No rash 02/12/2018 Neurologic No alteration of consciousness 02/12/2018 Ears/Nose/Throat/Neck headache 2017 Constitutional recent illness 02/09/2018 Constitutional No anorexia 02/09/2018 Constitutional No night sweats 2017 Constitutional No chills 02/09/2018 Constitutional No diaphoresis 02/09/2018 Constitutional fatigue 02/09/2018 Constitutional No fever 02/09/2018 Constitutional No insomnia 02/09/2018 Constitutional No malaise 02/09/2018 Eyes No eye discharge 02/09/2018 Eyes No eye erythema 02/09/2018 Ears/Nose/Throat/Neck No otalgia 2017 Ears/Nose/Throat/Neck sore throat 2017 Cardiovascular No chest pain/pressure 12/2017 Cardiovascular edema 02/09/2018 Respiratory cough 02/09/2018 Gastrointestinal No abdominal pain 2017 Gastrointestinal constipation 02/09/2018 Gastrointestinal diarrhea 02/09/2018 Genitourinary/Nephrology No dysuria 02/09 Dermatologic No rash 02/09/2018 Musculoskeletal joint complaint 2017 Musculoskeletal swelling 02/09/2018 Musculoskeletal stiffness 02/09/2018 Neurologic No alteration of consciousness 02/09/2018 Constitutional No recent illness 2017 Constitutional No [...] 1994 Constitutional general appearance Development: well developed 06/01/2018 None Full Exam - General 1994 Constitutional general appearance Development: appears stated age 0406/01/2018 None Full Exam - General 1994 Eyes pupils and irises Overall: pupils equal, round, reactive to light and accomodation 06/01/2018 None Full Exam - General 1994 Ears/Nose/Throat oral cavity/pharynx/larynx Overall: oral mucosa clear 06/01/2018 None Full Exam - General 1994 Ears/Nose/Throat oral cavity/pharynx/larynx Overall: oropharyngeal mucosa clear 06/01/2018 None Full Exam - General 1994 Ears/Nose/Throat oral cavity/pharynx/larynx Overall: no masses 06/01/2018 None Full Exam - General 1994 Respiratory auscultation Overall: breath sounds clear bilaterally 06/01/2018 None Full Exam - General 1994 Respiratory respiratory effort/rhythm Overall: no retractions 06/01/2018 None Full Exam - General 1994 Respiratory respiratory effort/rhythm Overall: normal rate 06/01/2018 None Full Exam - General 1994 Cardiovascular extremities Overall: no clubbing 06/01/2018 None Full Exam - General 1994 Cardiovascular auscultation of heart Overall: regular rate 06/01/2018 None Full Exam - General 1994 Cardiovascular auscultation of heart Overall: normal heart sounds 06/01/2018 None Full Exam - General 1994 Cardiovascular auscultation of heart Overall: no murmurs 06/01/2018 None Full Exam - General 1994 Abdomen abdominal exam Overall: normal bowel sounds 06/01/2018 None Full Exam - General 1994 Musculoskeletal head and neck Overall: head atraumatic 06/01/2018 None Full Exam - General 1994 Musculoskeletal head and neck Overall: cervical spine benign 06/01/2018 None Full Exam - General 1994 Psychiatric orientation/consciousness Overall: oriented to person, place and time 06/01/2018 None Full Exam - General 1994 Psychiatric mood and affect Overall: normal mood and affect 06/01/2018 None Full Exam - General 1994 Psychiatric mood and affect Mood: happy 06/01/2018 None Full Exam - General 1994 Constitutional general appearance Overall: well nourished 05/10/2018 None Full Exam - General 1994 Constitutional general appearance Overall: well developed 05/10/2018 None Full Exam - General 1994 Constitutional general appearance Overall: in no acute distress 05/10/2018 None Full Exam - General 1994 Cardiovascular auscultation of heart Overall: regular rate 05/10/2018 None Full Exam - General 1994 Cardiovascular auscultation of heart Overall: normal heart sounds 05/10/2018 None Full Exam - General 1994 Cardiovascular auscultation of heart Overall: no murmurs 05/10/2018 None Full Exam - General 1994 Abdomen abdominal exam Overall: no tenderness 05/10/2018 None Full Exam - General 1994 Abdomen abdominal exam Overall: normal bowel sounds 05/10/2018 None Full Exam - General 1994 Abdomen rectal exam Inspection: hemorrhoid 05/10/2018 no blood on exam of fecal material Full Exam - General 1994 Abdomen stool sample obtained Overall: normal appearance 05/10/2018 None Full Exam - General 1994 Abdomen stool sample obtained Overall: occult blood negative 05/10/2018 None Full Exam - General 1994 Psychiatric orientation/consciousness Overall: oriented to person, place and time 05/10/2018 None Full Exam - General 1994 Psychiatric mood and affect Mood: happy 05/10/2018 None Full Exam - General 1994 Psychiatric mood and affect Overall: normal mood and affect 05/10/2018 None Full Exam - General 1994 Constitutional general appearance Development: well developed 05/04/2018 None Full Exam - General 1994 Constitutional general appearance Development: appears stated age 0305/04/2018 None Full Exam - General 1994 Eyes pupils and irises Overall: pupils equal, round, reactive to light and accomodation 05/04/2018 None Full Exam - General 1994 Ears/Nose/Throat oral cavity/pharynx/larynx Overall: oropharyngeal mucosa clear 05/04/2018 None Full Exam - General 1994 Ears/Nose/Throat oral cavity/pharynx/larynx Overall: no masses 05/04/2018 None Full Exam - General 1994 Ears/Nose/Throat oral cavity/pharynx/larynx Overall: oral mucosa clear 05/04/2018 None Full Exam - General 1994 Respiratory auscultation Overall: breath sounds clear bilaterally 05/04/2018 None Full Exam - General 1994 Respiratory respiratory effort/rhythm Overall: normal rate 05/04/2018 None Full Exam - General 1994 Respiratory respiratory effort/rhythm Overall: no retractions 05/04/2018 None Full Exam - General 1994 Cardiovascular auscultation of heart Overall: regular rate 05/04/2018 None Full Exam - General 1994 Cardiovascular auscultation of heart Overall: normal heart sounds 05/04/2018 None Full Exam - General 1994 Cardiovascular auscultation of heart Overall: no murmurs 05/04/2018 None Full Exam - General 1994 Cardiovascular extremities Overall: no clubbing 05/04/2018 None Full Exam - General 1994 Abdomen abdominal exam Overall: normal bowel sounds 05/04/2018 None Full Exam - General 1994 Psychiatric orientation/consciousness Overall: oriented to person, place and time 05/04/2018 None Full Exam - General 1994 Psychiatric mood and affect Mood: happy 05/04/2018 None Full Exam - General 1994 Psychiatric mood and affect Overall: normal mood and affect 05/04/2018 None Full Exam - General 1994 Musculoskeletal head and neck Overall: cervical spine benign 05/04/2018 None Full Exam - General 1994 Musculoskeletal head and neck Overall: head atraumatic 05/04/2018 None Full Exam - General 1994 Constitutional general appearance Development: well developed 04/21/2018 None Full Exam - General 1994 Constitutional general appearance Development: appears stated age 0204/21/2018 None Full Exam - General 1994 Constitutional general appearance Hygiene/Attention to Grooming: good hygiene 04/21/2018 None Full Exam - General 1994 Eyes conjunctiva /eyelids Overall: conjunctiva clear 04/21/2018 None Full Exam - General 1994 Eyes conjunctiva /eyelids Overall: cornea clear 04/21/2018 None Full Exam - General 1994 Eyes conjunctiva /eyelids Overall: eyelids normal 04/21/2018 None Full Exam - General 1994 Eyes pupils and irises Overall: pupils equal, round, reactive to light and accomodation 04/21/2018 None Full Exam - General 1994 Ears/Nose/Throat oral cavity/pharynx/larynx Overall: oral mucosa clear 04/21/2018 None Full Exam - General 1994 Ears/Nose/Throat oral cavity/pharynx/larynx Overall: oropharyngeal mucosa clear 04/21/2018 None Full Exam - General 1994 Ears/Nose/Throat oral cavity/pharynx/larynx Overall: hypopharynx benign 04/21/2018 None Full Exam - General 1994 Ears/Nose/Throat oral cavity/pharynx/larynx Overall: no masses 04/21/2018 None Full Exam - General 1994 Respiratory auscultation Overall: breath sounds clear bilaterally 04/21/2018 None Full Exam - General 1994 Respiratory respiratory effort/rhythm Overall: no retractions 04/21/2018 None Full Exam - General 1994 Respiratory respiratory effort/rhythm Overall: normal rate 04/21/2018 None Full Exam - General 1994 Cardiovascular auscultation of heart Overall: regular rate 04/21/2018 None Full Exam - General 1994 Cardiovascular auscultation of heart Overall: normal heart sounds 04/21/2018 None Full Exam - General 1994 Abdomen abdominal exam Overall: normal bowel sounds 04/21/2018 None Full Exam - General 1994 Musculoskeletal upper extremity Inspection - shoulder: swelling 04/21/2018 left greater than right Full Exam - General 1994 Musculoskeletal head and neck Overall: head atraumatic 04/21/2018 None Full Exam - General 1994 Musculoskeletal head and neck Overall: TMJ benign 04/21/2018 None Full Exam - General 1994 Neurologic cranial nerves Overall: crainial nerves 2 - 12 grossly intact 04/21/2018 None Full Exam - General 1994 Psychiatric orientation/consciousness Overall: oriented to person, place and time 04/21/2018 None Full Exam - General 1994 Psychiatric mood and affect Overall: normal mood and affect 04/21/2018 None Full Exam - Cardiology Constitutional general appearance Assistive Device: wheelchair 04/21/2018 None Full Exam - General 1994 Abdomen abdominal exam Upper quadrant: tender to palpation 04/21/2018 None Full Exam - General 1994 Abdomen abdominal exam Upper quadrant: dull pain 04/21/2018 None Full Exam - General 1994 Abdomen abdominal exam Upper quadrant: voluntary guarding 04/21/2018 None Full Exam - General 1994 Abdomen abdominal exam Upper quadrant: no rebound tenderness 04/21/2018 None Full Exam - General 1994 Abdomen abdominal exam Upper quadrant: soft 04/21/2018 None Full Exam - General 1994 Abdomen abdominal exam Lower quadrant: tender to palpation 04/21/2018 None Full Exam - General 1994 Abdomen abdominal exam Lower quadrant: dull pain 04/21/2018 None Full Exam - General 1994 Abdomen abdominal exam Lower quadrant: voluntary guarding 04/21/2018 None Full Exam - General 1994 Abdomen abdominal exam Lower quadrant: no rebound tenderness 04/21/2018 None Full Exam - General 1994 Abdomen abdominal exam Lower quadrant: soft 04/21/2018 None Full Exam - General 1994 Constitutional general appearance Development: well developed 03/03/2018 None Full Exam - General 1994 Constitutional general appearance Development: appears stated age 0103/03/2018 None Full Exam - General 1994 Constitutional general appearance Hygiene/Attention to Grooming: good hygiene 03/03/2018 None Full Exam - General 1995 Eyes conjunctiva /eyelids Overall: conjunctiva clear 03/03/2018 None Full Exam - General 1994 Eyes conjunctiva /eyelids Overall: cornea clear 03/03/2018 None Full Exam - General 1994 Eyes conjunctiva /eyelids Overall: eyelids normal 03/03/2018 None Full Exam - General 1994 Eyes pupils and irises Overall: pupils equal, round, reactive to light and accomodation 03/03/2018 None Full Exam - General 1994 Ears/Nose/Throat oral cavity/pharynx/larynx Overall: oral mucosa clear 03/03/2018 None Full Exam - General 1994 Ears/Nose/Throat oral cavity/pharynx/larynx Overall: oropharyngeal mucosa clear 03/03/2018 None Full Exam - General 1994 Ears/Nose/Throat oral cavity/pharynx/larynx Overall: hypopharynx benign 03/03/2018 None Full Exam - General 1994 Ears/Nose/Throat oral cavity/pharynx/larynx Overall: no masses 03/03/2018 None Full Exam - General 1994 Respiratory auscultation Overall: breath sounds clear bilaterally 03/03/2018 None Full Exam - General 1994 Respiratory respiratory effort/rhythm Overall: no retractions 03/03/2018 None Full Exam - General 1994 Respiratory respiratory effort/rhythm Overall: normal rate 03/03/2018 None Full Exam - General 1994 Cardiovascular extremities Overall: no clubbing 03/03/2018 None Full Exam - General 1994 Cardiovascular extremities Edema present: pitting 03/03/2018 None Full Exam - General 1994 Cardiovascular extremities Edema present: severity 1+ - 4 +: 2+ 03/03/2018 None Full Exam - General 1994 Cardiovascular auscultation of heart Overall: regular rate 03/03/2018 None Full Exam - General 1994 Cardiovascular auscultation of heart Overall: normal heart sounds 03/03/2018 None Full Exam - General 1994 Abdomen abdominal exam Overall: no tenderness 03/03/2018 None Full Exam - General 1994 Abdomen abdominal exam Overall: normal bowel sounds 03/03/2018 None Full Exam - General 1994 Musculoskeletal upper extremity Inspection - shoulder: swelling 03/03/2018 left greater than right Full Exam - General 1994 Musculoskeletal head and neck Overall: head atraumatic 03/03/2018 None Full Exam - General 1994 Musculoskeletal head and neck Overall: TMJ benign 03/03/2018 None Full Exam - General 1994 Neurologic cranial nerves Overall: crainial nerves 2 - 12 grossly intact 03/03/2018 None Full Exam - General 1994 Psychiatric orientation/consciousness Overall: oriented to person, place and time 03/03/2018 None Full Exam - General 1994 Psychiatric mood and affect Overall: normal mood and affect 03/03/2018 None Full Exam - Cardiology Constitutional general appearance Assistive Device: wheelchair 03/03/2018 None Full Exam - General 1994 Constitutional general appearance Development: well developed 02/12/2018 None Full Exam - General 1994 Constitutional general appearance Development: appears stated age 1202/12/2018 None Full Exam - General 1994 Constitutional general appearance Hygiene/Attention to Grooming: good hygiene 02/12/2018 None Full Exam - General 1994 Eyes conjunctiva /eyelids Overall: conjunctiva clear 02/12/2018 None Full Exam - General 1994 Eyes conjunctiva /eyelids Overall: cornea clear 02/12/2018 None Full Exam - General 1994 Eyes conjunctiva /eyelids Overall: eyelids normal 02/12/2018 None Full Exam - General 1994 Eyes pupils and irises Overall: pupils equal, round, reactive to light and accomodation 02/12/2018 None Full Exam - General 1994 Ears/Nose/Throat oral cavity/pharynx/larynx Overall: oral mucosa clear 02/12/2018 None Full Exam - General 1994 Ears/Nose/Throat oral cavity/pharynx/larynx Overall: oropharyngeal mucosa clear 02/12/2018 None Full Exam - General 1994 Ears/Nose/Throat oral cavity/pharynx/larynx Overall: hypopharynx benign 02/12/2018 None Full Exam - General 1994 Ears/Nose/Throat oral cavity/pharynx/larynx Overall: no masses 02/12/2018 None Full Exam - General 1994 Respiratory respiratory effort/rhythm Overall: no retractions 02/12/2018 None Full Exam - General 1994 Respiratory respiratory effort/rhythm Overall: normal rate 02/12/2018 None Full Exam - General 1994 Cardiovascular extremities Overall: no clubbing 02/12/2018 None Full Exam - General 1994 Cardiovascular extremities Edema present: pitting 02/12/2018 None Full Exam - General 1994 Cardiovascular extremities Edema present: severity 1+ - 4 +: 2+ 02/12/2018 None Full Exam - General 1994 Cardiovascular auscultation of heart Overall: regular rate 02/12/2018 None Full Exam - General 1994 Cardiovascular auscultation of heart Overall: normal heart sounds 02/12/2018 None Full Exam - General 1994 Abdomen abdominal exam Overall: no tenderness 02/12/2018 None Full Exam - General 1994 Abdomen abdominal exam Overall: normal bowel sounds 02/12/2018 None Full Exam - General 1994 Musculoskeletal upper extremity Inspection - shoulder: swelling 02/12/2018 left greater than right Full Exam - General 1994 Musculoskeletal head and neck Overall: head atraumatic 02/12/2018 None Full Exam - General 1994 Musculoskeletal head and neck Overall: TMJ benign 02/12/2018 None Full Exam - General 1994 Neurologic cranial nerves Overall: crainial nerves 2 - 12 grossly intact 02/12/2018 None Full Exam - General 1994 Psychiatric orientation/consciousness Overall: oriented to person, place and time 02/12/2018 None Full Exam - General 1994 Psychiatric mood and affect Overall: normal mood and affect 02/12/2018 None Full Exam - Cardiology Constitutional general appearance Assistive Device: wheelchair 02/12/2018 None Full Exam - Cardiology Respiratory auscultation Overall: breath sounds clear bilaterally 02/12/2018 deep hacking cough Full Exam - Cardiology Ears/Nose/Throat oral mucosa Overall: oral mucosa clear 02/12/2018 None Full Exam - General 1994 Constitutional general appearance Development: well developed 02/09/2018 None Full Exam - General 1994 Constitutional general appearance Development: appears stated age 1202/09/2018 None Full Exam - General 1994 Constitutional general appearance Hygiene/Attention to Grooming: good hygiene 02/09/2018 None Full Exam - General 1994 Eyes conjunctiva /eyelids Overall: conjunctiva clear 02/09/2018 None Full Exam - General 1994 Eyes conjunctiva /eyelids Overall: cornea clear 02/09/2018 None Full Exam - General 1994 Eyes conjunctiva /eyelids Overall: eyelids normal 02/09/2018 None Full Exam - General 1994 Eyes pupils and irises Overall: pupils equal, round, reactive to light and accomodation 02/09/2018 None Full Exam - General 1994 Ears/Nose/Throat oral cavity/pharynx/larynx Overall: oral mucosa clear 02/09/2018 None Full Exam - General 1994 Ears/Nose/Throat oral cavity/pharynx/larynx Overall: oropharyngeal mucosa clear 02/09/2018 None Full Exam - General 1994 Ears/Nose/Throat oral cavity/pharynx/larynx Overall: hypopharynx benign 02/09/2018 None Full Exam - General 1994 Ears/Nose/Throat oral cavity/pharynx/larynx Overall: no masses 02/09/2018 None Full Exam - General 1994 Respiratory auscultation Overall: breath sounds clear bilaterally 02/09/2018 None Full Exam - General 1994 Respiratory respiratory effort/rhythm Overall: no retractions 02/09/2018 None Full Exam - General 1994 Respiratory respiratory effort/rhythm Overall: normal rate 02/09/2018 None Full Exam - General 1994 Cardiovascular extremities Overall: no clubbing 02/09/2018 None Full Exam - General 1994 Cardiovascular extremities Edema present: pitting 02/09/2018 None Full Exam - General 1994 Cardiovascular extremities Edema present: severity 1+ - 4 +: 2+ 02/09/2018 None Full Exam - General 1994 Cardiovascular auscultation of heart Overall: regular rate 02/09/2018 None Full Exam - General 1994 Cardiovascular auscultation of heart Overall: normal heart sounds 02/09/2018 None Full Exam - General 1994 Abdomen abdominal exam Overall: no tenderness 02/09/2018 None Full Exam - General 1994 Abdomen abdominal exam Overall: normal bowel sounds 02/09/2018 None Full Exam - General 1994 Musculoskeletal upper extremity Inspection - shoulder: swelling 02/09/2018 left greater than right Full Exam - General 1994 Musculoskeletal head and neck Overall: head atraumatic 02/09/2018 None Full Exam - General 1994 Musculoskeletal head and neck Overall: TMJ benign 02/09/2018 None Full Exam - General 1994 Neurologic cranial nerves Overall: crainial nerves 2 - 12 grossly intact 02/09/2018 None Full Exam - General 1994 Psychiatric orientation/consciousness Overall: oriented to person, place and time 02/09/2018 None Full Exam - General 1994 Psychiatric mood and affect Overall: normal mood and affect 02/09/2018 None Full Exam - Cardiology Constitutional general appearance Assistive Device: wheelchair 02/09/2018 None Full Exam - General 1994 Constitutional [...] 1995 Ears/Nose/Throat oral cavity/pharynx/larynx Overall: hypopharynx benign 11/05/2016 None Full Exam - General 1995 Ears/Nose/Throat oral cavity/pharynx/larynx Overall: no masses 11/05/2016 [...] dentition 03/18/2016 None Full Exam - General 1995 [...] affect 07/12/2014 None Procedures Procedure Codes Date THER/PROPH/DIAG INJ SC/IM CPT-4: 51976 04/21/2018 PROMETHAZINE HCL INJECTION CPT-4: J2550 04/21/2018 DRAIN/INJECT JOINT/BURSA CPT-4: 33043 08/21/2017 DRAIN/INJECT JOINT/BURSA CPT-4: 00161 08/12/2017 TRIAMCINOLONE ACET INJ NOS CPT-4: J3301 08/12/2017 DRAIN/INJECT JOINT/BURSA CPT-4: 65457 08/05/2017 TRIAMCINOLONE ACET INJ NOS CPT-4: J3301 08/05/2017 DRAIN/INJECT JOINT/BURSA CPT-4: 33479 07/23/2017 DRAIN/INJECT JOINT/BURSA CPT-4: 21407 07/09/2017 TRIAMCINOLONE ACET INJ NOS CPT-4: J3301 07/09/2017 PRESCRIP TRANSMIT VIA ERX SY CPT-4: G8553 07/09/2017 DRAIN/INJECT JOINT/BURSA CPT-4: 28031 07/01/2017 TRIAMCINOLONE ACET INJ NOS CPT-4: J3301 07/01/2017 PRESCRIP TRANSMIT VIA ERX SY CPT-4: G8553 07/01/2017 DRAIN/INJECT JOINT/BURSA CPT-4: 30388 06/17/2017 DRAIN/INJECT JOINT/BURSA CPT-4: 82138 04/02/2017 TRIAMCINOLONE ACET INJ NOS CPT-4: J3301 04/02/2017 DRAIN/INJECT JOINT/BURSA CPT-4: 30883 02/06/2017 ADMIN INFLUENZA VIRUS VAC CPT-4: G0008 12/08/2016 FLU VACC PRSV FREE INC ANTIG CPT-4: 68608 12/08/2016 PRESCRIP TRANSMIT VIA ERX SY CPT-4: G8553 12/08/2016 PRESCRIP TRANSMIT VIA ERX SY CPT-4: G8553 11/17/2016 TRIAMCINOLONE ACET INJ NOS CPT-4: J3301 10/02/2016 TRIAMCINOLONE ACET INJ NOS CPT-4: J3301 09/12/2016 DRAIN/INJECT JOINT/BURSA CPT-4: 28142 09/08/2016 TRIAMCINOLONE ACET INJ NOS CPT-4: J3301 09/08/2016 PRESCRIP TRANSMIT VIA ERX SY CPT-4: G8553 08/26/2016 PRESCRIP TRANSMIT VIA ERX SY CPT-4: G8553 08/18/2016 ADMIN INFLUENZA VIRUS VAC CPT-4: G0008 11/19/2015 FLU VACC PRSV FREE INC ANTIG Formatting Model/CDA Sections, Assigned to/Luanne Elaine CPT-4: [id number] 11/19/2015 PRESCRIP TRANSMIT VIA ERX SY CPT-4: G8553 09/04/2015 PRESCRIP TRANSMIT VIA ERX SY CPT-4: G8553 2015 PRESCRIP TRANSMIT VIA ERX SY CPT-4: G8553 07/18/2015 PRESCRIP TRANSMIT VIA ERX SY CPT-4: G8553 07/02/2015 REMOVE IMPACTED EAR WAX UNI CPT-4: 83023 04/09/2015 PRESCRIP TRANSMIT VIA ERX SY CPT-4: G8553 02/08/2015 ADMIN INFLUENZA VIRUS VAC CPT-4: G0008 01/10/2015 FLU VACC PRSV FREE INC ANTIG Formatting Model/CDA Sections, Assigned to/Luanne Elaine CPT-4: [id number] 01/10/2015 ADMIN PNEUMOCOCCAL VACCINE Formatting Model/CDA Sections, Assigned to SNOMED CT: 90190580 CPT-4: S8445Sxbigff 12/11/2014 PNEUMOCOCCAL VACC [address]: 21634587 CPT-4: 56602 12/11/2014 Vital Signs Date Vital 06/01/2018 Blood Pressure 1: 124/74 Code : 8480-6 Heart Rate 1: 79 bpm Height: SpO2: 95% Weight: 05/10/2018 Blood Pressure 1: 128/76 Code : 8480-6 Heart Rate 1: 88 bpm Height: SpO2: 97% Weight: 05/04/2018 Blood Pressure 1: 122/70 Code : 8480-6 Heart Rate 1: 83 bpm Height: SpO2: 97% Weight: 04/21/2018 Blood Pressure 1: 104/64 Code : 8480-6 Heart Rate 1: 59 bpm Height: SpO2: 97% Temperature: 37.1 (C) / 98.7 (F) Weight: 03/03/2018 Blood Pressure 1: 114/64 Code : 8480-6 Heart Rate 1: 89 bpm Height: SpO2: 99% Weight: 02/12/2018 Blood Pressure 1: 130/80 Code : 8480-6 Heart Rate 1: 79 bpm Height: SpO2: 98% Temperature: 36.3 (C) / 97.4 (F) Weight: 02/09/2018 Blood Pressure 1: 110/62 Code : 8480-6 Heart Rate 1: 96 bpm Height: SpO2: 98% Weight: 01/14/2018 Blood Pressure 1: 120/60 Code : 8480-6 Height: Weight: 161 lbs 12/24/2017 Blood Pressure 1: 115/58 Code : 8480-6 BMI: 23.5 Code : 02322-5 Heart Rate 1 : 58 bpm Height: 5'8" SpO2: 96% Weight: 152 lbs 11/30/2017 Blood Pressure 1: 122/70 Code : 8480-6 Heart Rate 1: 105 bpm Height: 5'8" SpO2: 98% Weight: 11/27/2017 Blood Pressure 1: 148/76 Code : 8480-6 Heart Rate 1: 72 bpm Height: 5'8" SpO2: 99% Weight: 11/10/2017 Blood Pressure 1: 130/76 Code : 8480-6 BMI: 27.3 Code : 31742-8 Heart Rate 1 : 98 bpm Height: [...] Code : 8480-6 BMI: 24.7 Code : 06720-7 Heart Rate 1 : 100 bpm Height: 5'8" SpO2: 95% Weight: 160 lbs 08/31/2017 Blood Pressure 1: 128/78 Code : 8480-6 BMI: 23.6 Code : 24826-9 Heart Rate 1 : 102 bpm Height: 5'8" SpO2: 96% Weight: 153 lbs 08/21/2017 Blood Pressure 1: 138/78 Code : 8480-6 Heart Rate 1: 97 bpm SpO2: 95% Weight: 156 lbs 2 oz 08/12/2017 Blood Pressure 1: 138/74 Code : 8480-6 BMI: 25.0 Code : 62141-5 Heart Rate 1 : 94 bpm Height: 5'8" SpO2: 98% Weight: 162 lbs 08/05/2017 Blood Pressure 1: 126/78 Code : 8480-6 BMI: 25.8 Code : 14775-6 Heart Rate 1 : 74 bpm Height: 5'8" SpO2: 96% Weight: 167 lbs 07/23/2017 Blood Pressure 1: 106/64 Code : 8480-6 BMI: 25.3 Code : 58600-3 Heart Rate 1 : 81 bpm Height: 5'8" SpO2: 99% Weight: 163 lbs 14 oz 07/09/2017 Blood Pressure 1: 130/68 Code : 8480-6 Heart Rate 1: 82 bpm Height: 5'8" SpO2: 98% Weight: 07/01/2017 Blood Pressure 1: 124/76 Code : 8480-6 BMI: 26.5 Code : 74884-2 Heart Rate 1 : 99 bpm Height: 5'8" SpO2: 98% Weight: 172 lbs 06/24/2017 Blood Pressure 1: 118/70 Code : 8480-6 Heart Rate 1: 103 bpm Height: 5'8" SpO2: 98% Weight: 06/17/2017 Blood Pressure 1: 110/64 Code : 8480-6 BMI: 25.0 Code : 20667-6 Heart Rate 1 : 73 bpm Height: 5'8" Weight: 162 lbs 06/01/2017 Blood Pressure 1: 158/84 Code : 8480-6 BMI: 24.4 Code : 65184-0 Heart Rate 1 : 94 bpm Height: 5'8" SpO2: 95% Weight: 158 lbs 04/02/2017 Blood Pressure 1: 164/80 Code : 8480-6 BMI: 23.1 Code : 03046-1 Heart Rate 1 : 76 bpm Height: 5'8" SpO2: 94% Weight: 150 lbs 03/12/2017 Blood Pressure 1: 130/74 Code : 8480-6 BMI: 23.0 Code : 93735-8 Heart Rate 1 : 92 bpm Height: 5'8" SpO2: 94% Weight: 149 lbs 02/06/2017 Height: Weight: 01/08/2017 Blood Pressure 1: 136/76 Code : 8480-6 BMI: 21.4 Code : 25549-4 Heart Rate 1 : 85 bpm Height: 5'8" SpO2: 98% Weight: 138 lbs 8 oz 12/08/2016 Blood Pressure 1: 132/66 Code : 8480-6 BMI: 22.2 Code : 87790-7 Heart Rate 1 : 106 bpm Height: 5'8" SpO2: 97% Weight: 144 lbs 11/17/2016 Blood Pressure 1: 146/80 Code : 8480-6 BMI: 22.4 Code : 12484-6 Heart Rate 1 : 100 bpm Height: 5'8" SpO2: 98% Weight: 145 lbs 11/10/2016 Blood Pressure 1: 122/62 Code : 8480-6 BMI: 22.2 Code : 20675-9 Height: 5'8" Weight: 144 lbs 11/05/2016 Blood Pressure 1: 146/80 Code : 8480-6 BMI: 22.2 Code : 89991-4 Heart Rate 1 : 77 bpm Height: 5'8" SpO2: 99% Weight: 144 lbs 10/07/2016 Blood Pressure 1: 132/68 Code : 8480-6 BMI: 22.8 Code : 39918-9 Heart Rate 1 : 90 bpm Height: 5'8" SpO2: 97% Weight: 148 lbs 10/02/2016 Blood Pressure 1: 166/86 Code : 8480-6 BMI: 22.8 Code : 25388-2 Heart Rate 1 : 96 bpm Height: 5'8" SpO2: 96% Weight: 148 lbs 09/12/2016 Blood Pressure 1: 130/86 Code : 8480-6 Height: Weight: 09/08/2016 Blood Pressure 1: 132/74 Code : 8480-6 BMI: 22.4 Code : 37978-4 Heart Rate 1 : 93 bpm Height: 5'8" SpO2: 99% Weight: 145 lbs 08/26/2016 Blood Pressure 1: 132/78 Code : 8480-6 BMI: 23.9 Code : 03966-0 Heart Rate 1 : 80 bpm Height: 5'8" SpO2: 94% Weight: 155 lbs 08/18/2016 Blood Pressure 1: 130/70 Code : 8480-6 BMI: 23.6 Code : 98687-2 Heart Rate 1 : 100 bpm Height: 5'8" SpO2: 94% Weight: 153 lbs 07/30/2016 Blood Pressure 1: 144/84 Code : 8480-6 BMI: 22.4 Code : 27609-2 Heart Rate 1 : 86 bpm Height: 5'8" SpO2: 97% Weight: 145 lbs 07/14/2016 Blood Pressure 1: 122/74 Code : 8480-6 BMI: 22.5 Code : 72505-0 Heart Rate 1 : 87 bpm Height: 5'8" SpO2: 97% Weight: 146 lbs 07/04/2016 Blood Pressure 1: 128/78 Code : 8480-6 BMI: 22.5 Code : 70089-7 Heart Rate 1 : 98 bpm Height: 5'8" Weight: 146 lbs 06/26/2016 Blood Pressure 1: 122/68 Code : 8480-6 BMI: 22.5 Code : 67369-7 Heart Rate 1 : 102 bpm Height: 5'8" SpO2: 98% Weight: 146 lbs 05/28/2016 Blood Pressure 1: 122/68 Code : 8480-6 BMI: 22.4 Code : 55292-0 Heart Rate 1 : 89 bpm Height: 5'8" SpO2: 97% Weight: 145 lbs 03/18/2016 Blood Pressure 1: 132/66 Code : 8480-6 BMI: 22.8 Code : 22868-9 Heart Rate 1 : 96 bpm Height: 5'8" SpO2: 98% Weight: 148 lbs 01/29/2016 Blood Pressure 1: 122/66 Code : 8480-6 BMI: 22.2 Code : 34692-5 Heart Rate 1 : 90 bpm Height: 5'8" SpO2: 99% Weight: 144 lbs 01/01/2016 Blood Pressure 1: 148/82 Code : 8480-6 BMI: 22.5 Code : 55387-8 Heart Rate 1 : 82 bpm Height: 5'8" Weight: 146 lbs 11/19/2015 Blood Pressure 1: 140/74 Code : 8480-6 BMI: 23.7 Code : 96161-9 Heart Rate 1 : 79 bpm Height: 5'8" SpO2: 96% Weight: 153 lbs 8 oz 11/01/2015 Blood Pressure 1: 118/72 Code : 8480-6 Heart Rate 1: 90 bpm Height: 5'8" SpO2: 95% 09/04/2015 Blood Pressure 1: 136/72 Code : 8480-6 BMI: 23.1 Code : 82267-6 Heart Rate 1 : 97 bpm Height: 5'8" SpO2: 98% Weight: 149 lbs 8 oz 2015 Blood Pressure 1: 144/76 Code : 8480-6 BMI: 22.8 Code : 61805-9 Heart Rate 1 : 75 bpm Height: 5'8" SpO2: 97% Weight: 148 lbs 07/18/2015 Blood Pressure 1: 132/60 Code : 8480-6 BMI: 23.1 Code : 08084-5 Heart Rate 1 : 78 bpm Height: 5'8" Weight: 150 lbs 07/02/2015 Blood Pressure 1: 156/86 Code : 8480-6 BMI: 23.0 Code : 91859-8 Heart Rate 1 : 75 bpm Height: 5'8" SpO2: 99% Weight: 149 lbs 05/31/2015 Blood Pressure 1: 136/72 Code : 8480-6 BMI: 22.7 Code : 79928-3 Heart Rate 1 : 85 bpm Height: 5'8" SpO2: 97% Weight: 147 lbs 04/09/2015 Blood Pressure 1: 118/60 Code : 8480-6 BMI: 22.7 Code : 94654-3 Heart Rate 1 : 72 bpm Height: 5'8" SpO2: 95% Weight: 147 lbs 02/08/2015 Blood Pressure 1: 138/76 Code : 8480-6 BMI: 23.1 Code : 93771-4 Heart Rate 1 : 80 bpm Height: 5'8" SpO2: 98% Weight: 150 lbs 12/11/2014 Blood Pressure 1: 120/74 Code : 8480-6 BMI: 22.1 Code : 89814-1 Heart Rate 1 : 92 bpm Height: 5'8" SpO2: 96% Weight: 143 lbs 11/09/2014 Blood Pressure 1: 100/64 Code : 8480-6 BMI: 21.6 Code : 48197-2 Heart Rate 1 : 88 bpm Height: 5'8" Weight: 140 lbs 10/23/2014 Blood Pressure 1: 138/82 Code : 8480-6 BMI: 23.6 Code : 46885-3 Heart Rate 1 : 86 bpm Height: 5'8" Weight: 153 lbs 10/16/2014 Blood Pressure 1: 128/60 Code : 8480-6 BMI: 23.3 Code : 29890-1 Heart Rate 1 : 91 bpm Height: 5'8" SpO2: 99% Weight: 151 lbs 10/09/2014 Blood Pressure 1: 120/60 Code : 8480-6 BMI: 23.0 Code : 20599-1 Heart Rate 1 : 96 bpm Height: 5'8" SpO2: 97% Weight: 149 lbs 09/14/2014 Blood Pressure 1: 132/72 Code : 8480-6 BMI: 22.1 Code : 91406-2 Heart Rate 1 : 84 bpm Height: 5'8" SpO2: 97% Weight: 143 lbs 08/11/2014 Blood Pressure 1: 134/74 Code : 8480-6 BMI: 24.1 Code : 35460-9 Heart Rate 1 : 88 bpm Height: 5'8" Weight: 156 lbs 07/12/2014 Blood Pressure 1: 122/62 Code : 8480-6 BMI: 22.7 Code : 28127-2 Heart Rate 1 : 76 bpm Height: 5'8" Weight: 147 lbs Functional Status No Functional Status data History of Present Illness Symptom Name Status Result Effective Date Notes Onset of Symptom _ years ago 06/01/2018 None Pertinent Findings pain 06/01/2018 None Quality intermittent 05/10/2018 None Onset of Symptom 2 weeks ago 05/10/2018 None Frequency of Episodes daily 05/10/2018 None Pertinent Findings Denies painful stools 05/10/2018 None Location-Major on the upper body 05/04/2018 None Location-Major on the lower body 05/04/2018 None Location-Major on the back 05/04/2018 None Location-Major on the hands 05/04/2018 None Location-Extremities on the right arm 05/04/2018 None Location-Extremities on both legs 05/04/2018 None Onset of Symptom _ years ago 05/04/2018 None Pertinent Findings pain 05/04/2018 None Onset of Symptom _ hours ago 04/21/2018 None Frequency of Episodes hourly 04/21/2018 None Onset and Resolution sudden in onset 04/21/2018 None Quality constant None Quality constant 04/2018 None Quality painful 03/03 None Limitation on Activities moderately limits activities 03/03/2018 None Significant Past Medical History cardiac disease 03/03/2018 None Significant Medications diuretics 03/03/2018 None Location diffusely None Quality improving 04/2018 None Alleviating Factors medication 03/03/2018 None Frequency of Episodes decreasing 03/03/2018 None Location in the throat 02/12/2018 None Quality productive None Onset of Symptom 4 days ago 02/12/2018 None Limitation on Activities moderately limits activities 02/12/2018 None Pertinent Findings chest discomfort 02/12/2018 None Pertinent Findings Denies dyspnea 02/12/2018 None Pertinent Findings Denies fever 02/12/2018 None Pertinent Findings hoarseness 02/12/2018 None Triggers no known associated factors 02/12/2018 None Timing of Episodes upon awakening 02/12/2018 None Frequency of Episodes increasing 02/12/2018 None _ Other: obstipation, electrolyte imbalance, uncontrolled pain 02/09/2018 None Quality acute illness 02/09/2018 None Onset and Resolution ongoing 02/09/2018 None Location diffusely None Onset of Symptom _ days ago 02/09/2018 None Severity moderate 12/2017 None Significant Medical Conditions acute illness 02/09/2018 None Mechanism of injury unknown 02/09/2018 None edema Onset and Resolution sudden in [...] Dr. Bl[place] in [place] and Neurosurgeon in [place] in the past neck pain Significant Medical Conditions spinal stenosis 07/12/2014 has osteoarthritis Advance Directives No Advance Directive data Encounters Encounter Performer Location Codes Date ([id number]) 41565 EST. 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 PATIENT, LEVEL III Diagnosis: First degree hemorrhoids[ICD10: K64.0] Diagnosis: Other specified diseases of anus and rectum[ICD10: K62.89] Araceli Silva MD , [facility] CPT-4: 29852 05/10/2018 ([id number]) 81881 EST. 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 PATIENT, LEVEL III Diagnosis: Other specified intestinal infections[ICD10: A08.8] Diagnosis: Diarrhea, unspecified[ICD10: R19.7] Maricel Silva MD, [facility] CPT-4: 31384 04/21/2018 ([id number]) 18806 EST. PATIENT, LEVEL IV Diagnosis: Essential (primary) hypertension[ICD10: I10] Diagnosis: Hypo-osmolality and hyponatremia[ICD10: E87.1] Diagnosis: Chronic pain syndrome[ICD10: G89.4] Araceli Silva MD, [facility] CPT-4: 67462 03/03/2018 ([id number]) 54318 EST. PATIENT, LEVEL III Diagnosis: Cough[ICD10: R05] Diagnosis: Acute bronchitis, unspecified[ICD10: J20.9] Diagnosis: Chronic obstructive pulmonary disease, unspecified[ICD10: J44.9] Ila Silva MD, [facility] CPT-4: 50550 02/12/2018 ([id number]) 90089 EST. PATIENT, LEVEL IV Diagnosis: Chronic pain syndrome[ICD10: G89.4] Diagnosis: Cough[ICD10: R05] Diagnosis: Diarrhea, unspecified[ICD10: R19.7] Diagnosis: Generalized edema[ICD10: R60.1] Ila Silva MD, [facility] CPT-4: 40768 02/09/2018 ([id number]) 89771 EST. PATIENT, LEVEL III Diagnosis: Generalized edema[ICD10: R60.1] Diagnosis: Lymphedema, not elsewhere classified[ICD10: I89.0] Araceli Silva MD, [facility] CPT-4: 94671 01/14/2018 ([id number]) 87939 EST. PATIENT, LEVEL IV Diagnosis: Essential (primary) hypertension[ICD10: I10] Diagnosis: Generalized edema[ICD10: R60.1] Diagnosis: Chronic pain syndrome[ICD10: G89.4] Araceli Silva MD, [facility] CPT-4: 94669 12/24/2017 ([id number]) 08876 EST. PATIENT, LEVEL III Diagnosis: Lymphedema, not elsewhere classified[ICD10: I89.0] Araceli Silva MD, [facility] CPT-4: 59367 11/30/2017 ([id number]) 03541 EST. PATIENT, LEVEL III Diagnosis: Generalized edema[ICD10: R60.1] Ila Silva MD, [facility] CPT-4: 52694 11/27/2017 ([id number]) 20614 EST. PATIENT, LEVEL IV Diagnosis: Localized edema[ICD10: [...] in left shoulder[ICD10: M25.512] Araceli Silva MD, [facility] CPT-4: 27560 11/10/2017 ([id number]) 41784 EST. PATIENT, LEVEL IV Diagnosis: Localized edema[ICD10: [...] in left shoulder[ICD10: M25.512] Araceli Silva MD, [facility] CPT-4: 33174 10/29/2017 ([id number]) 53983 EST. PATIENT, LEVEL IV Diagnosis: Essential (primary) [...] Silva MD, [facility] CPT- 4: 34994 10/20/2017 ([id number]) 37189 EST. 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 PATIENT, LEVEL IV Diagnosis: Essential (primary) hypertension[ICD10: I10] Diagnosis: Chronic pain syndrome[ICD10: G89.4] Diagnosis: Primary osteoarthritis, right shoulder[ICD10: M19.011] Diagnosis: Primary osteoarthritis, left shoulder[ICD10: M19.012] Diagnosis: Hemarthrosis, left shoulder[ICD10: M25.012] Diagnosis: Hemarthrosis, right shoulder[ICD10: M25.011] Diagnosis: Pain in right shoulder[ICD10: M25.511] Diagnosis: Pain in left shoulder[ICD10: M25.512] Araceli Silva MD, [facility] CPT-4: 89121 08/05/2017 ([id number]) 87023 EST. PATIENT, LEVEL III Diagnosis: Localized edema[ICD10: R60.0] Araceli Silva MD, [facility] CPT- 4: 59109 07/23/2017 ([id number]) 52365 EST. PATIENT, LEVEL III Diagnosis: Rheumatoid arthritis without rheumatoid factor, left shoulder[ICD10: M06.012] Diagnosis: Hemarthrosis, left shoulder[ICD10: M25.012] Araceli Silva MD, [facility] CPT-4: 88528 07/09/2017 ([id number]) 31696 EST. PATIENT, LEVEL III Diagnosis: Chronic pain syndrome[ICD10: G89.4] Diagnosis: Rheumatoid arthritis without rheumatoid factor, left shoulder[ICD10: M06.012] Diagnosis: Hemarthrosis, left shoulder[ICD10: M25.012] Diagnosis: Lymphedema, not elsewhere classified[ICD10: I89.0] Araceli Silva MD, [facility] CPT-4: 81656 07/01/2017 ([id number]) 98083 EST. PATIENT, LEVEL III Diagnosis: Chronic pain syndrome[ICD10: G89.4] Araceli Silva MD, [facility] CPT-4: 78271 06/24/2017 ([id number]) 68428 EST. PATIENT, LEVEL IV Diagnosis: Rheumatoid arthritis without rheumatoid factor, right shoulder[ICD10 : M06.011] Diagnosis: Rheumatoid arthritis without rheumatoid factor, left shoulder[ICD10: M06.012] Diagnosis: Pain in right shoulder[ICD10: M25.511] Diagnosis: Pain in left shoulder[ICD10: M25.512] Diagnosis: Chronic atrial fibrillation[ICD10: I48.2] Araceli Silva MD, [facility] CPT-4: 77953 06/17/2017 26407 EST. PATIENT, LEVEL III Diagnosis: Pain in left shoulder[ICD10: M25.512] Diagnosis: Hemarthrosis, right shoulder[ICD10: M25.011] Diagnosis: Hemarthrosis, left shoulder[ICD10: M25.012] Maricel Silva MD, [facility] CPT-4: 28827 06/01/2017 ([id number]) 88155 EST. PATIENT, LEVEL II Diagnosis: Pain in right shoulder[ICD10: M25.511] Diagnosis: Hemarthrosis, right shoulder[ICD10: M25.011] Araceli Silva MD, [facility] CPT-4: 02627 04/02/2017 ([id number]) 21012 EST. PATIENT, LEVEL IV Diagnosis: Chronic pain syndrome[ICD10: G89.4] Diagnosis: Rheumatoid arthritis without rheumatoid factor, right shoulder[ICD10 : M06.011] Diagnosis: Rheumatoid arthritis without rheumatoid factor, left shoulder[ICD10: M06.012] Araceli Silva MD, [facility] CPT-4: 46856 2017 ([id number]) 11139 EST. PATIENT, LEVEL IV Diagnosis: Primary osteoarthritis, right shoulder[ICD10: M19.011] Diagnosis: Chronic pain syndrome[ICD10: G89.4] Diagnosis: Essential (primary) hypertension[ICD10: I10] Diagnosis: Hypomagnesemia[ICD10: E83.42] Araceli Silva MD, [facility] CPT- 4: 35022 01/08/2017 ([id number]) 14622 EST. PATIENT, LEVEL IV Diagnosis: Encounter for immunization[ICD10: Z23] Diagnosis: Chronic pain syndrome[ICD10: G89.4] Diagnosis: Essential (primary) hypertension[ICD10: I10] Araceli Silva MD, [facility] CPT-4: 02306 12/08/2016 ([id number]) 92425 EST. PATIENT, LEVEL III Diagnosis: Urge incontinence[ICD10: N39.41] Diagnosis: Chronic pain syndrome[ICD10: G89.4] Diagnosis: Lymphedema, not elsewhere classified[ICD10: I89.0] Araceli Silva MD, [facility] CPT-4: 54279 11/17/2016 84917 EST. 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 PATIENT, LEVEL IV Diagnosis: Essential (primary) hypertension[ICD10: I10] Diagnosis: Other chronic pain[ICD10: G89.29] Diagnosis: Localized edema[ICD10: R60.0] Diagnosis: Urge incontinence[ICD10: N39.41] Araceli Silva MD, [facility] CPT-4: 67771 11/05/2016 ([id number]) 20720 EST. 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 PATIENT, LEVEL III Diagnosis: Hemarthrosis, right shoulder[ICD10: M25.011] Diagnosis: Pain in right shoulder[ICD10: M25.511] Ila Silva MD, [facility] CPT-4: 52226 10/02/2016 17210 EST. PATIENT, LEVEL II Diagnosis: Low back pain[ICD10: M54.5] Diagnosis: Sacroiliitis, not elsewhere classified[ICD10: M46.1] Ila Silva MD, [facility] CPT-4: 70267 09/12/2016 ([id number]) 54585 EST. PATIENT, LEVEL III Diagnosis: Hemarthrosis, right shoulder[ICD10: M25.011] Diagnosis: Other chronic pain[ICD10: G89.29] Araceli Silva MD, [facility] CPT-4: 21556 09/08/2016 ([id number]) 61420 EST. PATIENT, LEVEL IV Diagnosis: Other iron deficiency anemias[ICD10: D50.8] Diagnosis: Vitamin D deficiency, unspecified[ICD10: E55.9] Diagnosis: Hypomagnesemia[ICD10: E83.42] Araceli Silva MD, [facility] CPT- 4: 73553 08/26/2016 ([id number]) 51013 EST. PATIENT, LEVEL III Diagnosis: Localized edema[ICD10: R60.0] Araceli Silva MD, [facility] CPT- 4: 42915 08/18/2016 ([id number]) 08145 EST. 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 PATIENT, LEVEL IV Diagnosis: Pain in left shoulder[ICD10: M25.512] Diagnosis: Nocturia[ICD10: R35.1] Maricel Silva MD, [facility] CPT-4: 51787 07/14/2016 53404 EST. PATIENT, LEVEL III Diagnosis: Pain in left shoulder[ICD10: M25.512] Maricel Silva MD, [facility] CPT-4: 26325 07/04/2016 ([id number]) 21263 EST. 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 PATIENT, LEVEL II Diagnosis: Insect bite (nonvenomous) of right upper arm, initial encounter[ICD10 : S40.861A] Ila Silva MD, [facility] CPT-4: 04698 11/01/2015 ([id number]) 40799 EST. 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 PATIENT, LEVEL III Diagnosis: Contusion of left upper arm, subsequent encounter[ICD10: S40.022D] Araceli Silva MD, [facility] CPT-4: 44965 2015 64311 EST. PATIENT, LEVEL III Diagnosis: Cellulitis of left upper limb[ICD10: L03.114] Maricel Silva MD, [facility] CPT-4: 05229 07/18/2015 ([id number]) 82328 EST. 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 PATIENT, LEVEL IV Diagnosis: Essential (primary) hypertension[ICD10: I10] Diagnosis: Vitamin D deficiency, unspecified[ICD10: E55.9] Diagnosis: Mixed hyperlipidemia[ICD10: E78.2] Diagnosis: Age-related osteoporosis with current pathological fracture, unspecified site, sequela[ICD10: M80.00XS] Araceli Silva MD, [facility] CPT- 4: 29123 02/08/2015 ([id number]) 04441 EST. PATIENT, LEVEL IV Diagnosis: Essential (primary) hypertension[ICD10: I10] Diagnosis: Localized edema[ICD10: R60.0] Diagnosis: Primary osteoarthritis, unspecified site[ICD10: M19.91] Araceli Silva MD, [facility] CPT-4: 52186 12/11/2014 ([id number]) 26322 EST. PATIENT, LEVEL III Diagnosis: EDEMA[ICD9: 782.3] Diagnosis: ESSENTIAL HYPERTENSION[ICD9: 401.9] Araceli Silva MD, [facility] CPT-4: 23009 11/09/2014 ([id number]) 56292 EST. PATIENT, LEVEL III Diagnosis: Leg pain[ICD9: 729.5] Diagnosis: Ulcer of toe[ICD9: 707.15] Araceli Silva MD, [facility] CPT- 4: 00153 10/23/2014 ([id number]) 55694 EST. PATIENT, LEVEL III Diagnosis: Ulcer of toe[ICD9: 707.15] Araceli Silva MD, [facility] CPT- 4: 87005 10/16/2014 69993 EST. PATIENT, LEVEL II Diagnosis: Ulcer of toe[ICD9: 707.15] Ila Kennedy Araceli Silva MD, [facility] CPT-4: 35428 10/09/2014 ([id number]) 38456 EST. PATIENT, LEVEL III Diagnosis: EDEMA[ICD9: 782.3] Araceli Silva MD, [facility] CPT-4: 77241 09/14/2014 ([id number]) 47973 EST. PATIENT, LEVEL IV Diagnosis: EDEMA[ICD9: 782.3] Diagnosis: ESSENTIAL HYPERTENSION[ICD9: 401.9] Araceli Silva MD, [facility] CPT-4: 01107 08/11/2014 ([id number]) OFFICE VISIT, NEW - LEVEL 4 Diagnosis: HYPERLIPIDEMIA[ICD9: 272.4] Diagnosis: VITAMIN D DEFICIENCY[ICD9: 268.9] Diagnosis: Osteoporosis[ICD9: 733.00] Diagnosis: Esophageal reflux[ICD9: 530.81] Diagnosis: Chronic pain[ICD9: 338.29] Araceli Silva MD, [facility] CPT- 4: 13484 07/12/2014 Plan of Care Planned Activity Notes [...] - pt has chronic pain - has not been well maintained on current medications, she needs to have increased dose of gabapentin 200mg three times daily - may need to increase dose further if pain does not improve, she understands the consequences of over-medication. 06/01/2018 Patient Education: Patient Medication Summary Completed 06/01/2018 Visit Plan: Melena - hemorrhoidal tissue- discussed with pt and her daughter - rx for proctofoam and suppositories given to patient - they will car pick up driver the RX that is 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 Avoid straining when having bowel movements. Monitor symptoms closely. 05/10/2018 Appointment: Araceli Silva WPtel: [facility]6 [facility] (15 min) Moderate 05/10/2018 Patient Education: Patient Medication Summary Completed 05/10/2018 Visit Plan: Chronic Pain Syndrome - pt has chronic pain - has been maintained on current medications, has not sought out other medications , only uses PRN pain medications as directed, and understands the consequences of over-medication. decrease the fentanyl to 100mcg start on gabapentin at 100mg at night x 1 week and increase by one pill weekly up to 100mg three times daily increase prednisone to 20mg daily x 1 week then decrease to 10mg daily x 1 week then go back to usual regimen of 5mg prednisone daily Constipation - advised pt that she should not take double the miralax dose when she is having constipation - she needs to use miralax and drink prune juice and take an extra 1/2 teaspoon of miralax. 05/04/2018 Appointment: Araceli Silva WPtel: [facility]8 [facility] (15 min) Moderate 05/04/2018 Patient Education: Patient Medication Summary Completed 05/04/2018 Appointment: Araceli Silva WPtel: [facility]4 [facility] (15 min) Moderate 05/03/2018 Visit Plan: Gastroenteritis - discussed need to stay away from milk products while acutely ill with diarrhea and nausea and emesis as it may worsen the symptoms. Liquids initially until the nausea improves, then recommend to advance to bland diet for 1 day, then advance as tolerated. Call if symptoms not improved. Diarrhea - recommended bland diet, low fat diet, start on probiotic, and rehydrate with gatorade-like product. Pt to call if feeling worse, diarrhea becomes bloody, or does not improve with above recommendations. Pt to call for acute worsening of stomach upset or stomach pain. 04/21/2018 Appointment: Maricel Gee WPtel: [facility]6 [facility] (30 min) Complex 04/21/2018 Patient Education: Patient Medication Summary Completed 04/21/2018 Visit Plan: Hypertension - well controlled - continue with current medications, continue with no added salt diet. Pt has been encouraged to exercise daily. The pt has been advised to call the office if there are any acute concerns about change in blood pressure readings at home. Chronic constipation - alternating with diarrhea - continue with miralax, increased fluids - monitor symptoms. Chronic pain syndrome - continue with fentanyl 03/03/2018 Appointment: Araceli Sliva WPtel: [phone] [facility]6[address] (15 min) Moderate 03/03/2018 Patient Education: Patient Medication Summary Completed 03/03/2018 Visit Plan: Bronchitis - acute case of bronchitis identified. Pt has been given antibiotics, breathing treatments as appropriate, and pt has been instructed to call if symptoms are not improved, or if symptoms acutely worsen. 02/12/2018 Visit Plan: Bronchitis - acute case of bronchitis identified. Pt has been given antibiotics, breathing treatments as appropriate, and pt has been instructed to call if symptoms are not improved, or if symptoms acutely worsen. ADDENDUM: Patient has COPD and would benefit from nebulizer treatments with albuterol to help with cough, wheezing and shortness of breath - will send rx to [facility] 02/12/2018 Appointment: Ila Kennedy WPtel: [phone] [phone] (30 min) Complex 02/12/2018 Patient Education: Patient Medication Summary Completed 02/12/2018 Visit Plan: Chronic Pain Syndrome - pt has chronic pain - has been maintained on current medications, has not sought out other medications , only uses PRN pain medications as directed, and understands the consequences of over-medication. Ufvek-dyhybogjxb-lchranxh with lasix/metolazone -if swelling /weight increase, okay to increase metolazone to daily as directed Cough- okay for robitussin dm Diarrhea- rx for lomotil written and instructed on use-follow up in 3 weeks, sooner if needed. Call with any concerns. 02/09/2018 Appointment: Ila Kennedy WPtel: [phone] [phone] (30 min) Complex 02/09/2018 Patient Education: Patient Medication Summary Completed 02/09/2018 Appointment: [facility]el[facility] [address] [facility] (15 min) Moderate 02/04/2018 Visit Plan: Edema/Lymphedema - prn metalozone rx sent to pharmacy. Keep legs elevated and wrapped. Chronic Pain Syndrome - pt has chronic pain - has been maintained on current medications, has not sought out other medications, only uses PRN pain medications as directed, and understands the consequences of over-medication. 01/14/2018 Visit Plan: Edema/Lymphedema - prn metalozone rx sent to pharmacy. Keep legs elevated and wrapped. Chronic Pain Syndrome - pt has chronic pain - has been maintained on current medications, has not sought out other medications, only uses PRN pain medications as directed, and understands the consequences of over-medication. 01/14/2018 Appointment: Araceli Silva [facility]Ptel[facility] [phone] [facility] (15 min) Moderate 01/14/2018 Patient Education: Patient [...] oxycodone scheduled. 12/24/2017 Appointment: Araceli Silva WPtel: [facility] (30 min) Complex 12/24/2017 Patient Education: Patient [...] and output. 11/30/2017 Appointment: Araceli Silva WPtel: [facility] (15 min) Moderate 11/30/2017 Patient Education: Patient [...] of over-medication. 11/10/2017 Appointment: Ar[facility]eli Silva [facility]Ptel[facility] [phone] [facility] (15 min) Moderate 11/10/2017 Patient Education: Patient [...] hands/fingers. We will contact [facility] [employer] in [place] for paperwork regarding the scooter. 10/29/2017 Appointment: Araceli Silva [facility]Ptel: [address] [facility] (15 min) Moderate 10/29/2017 Patient Education: Patient [...] this time. 10/20/2017 Appointment: Araceli Silva WPtel: [phone] [facility] [place] (30 min) Complex 10/20/2017 Patient Education: [...] drained today. 09/29/2017 Appointment: Araceli Silva WPtel: [address] [place] [address] (15 min) Moderate 09/29/2017 Patient Education: Patient [...] Completed 08/21/2017 Appointment: [facility]aceli Silva [facility]Ptel[facility] [address] [facility] (15 min) Moderate 08/20/2017 Visit Plan: Hemarthrosis shoulders - 250mL from left shoulder and 100mL from right shoulder with 1ml kenalog injected into right and left shoulders - Left and right shoulder pain and swelling, swelling into arms and left breast -pt to continue with use of compression sleeves. [id number] sep 2018 bristol 2ml kenalog 08/12/2017 Appointment: Araceli Silva WPtel: [address] [facility] (15 min) Moderate 08/12/2017 Patient Education: Patient [...] edema. 08/05/2017 Appointment: Araceli Silva [facility]Ptel: [address] [facility] (15 min) Moderate 08/05/2017 Patient Education: Patient [...] Araceli Silva WPtel: [facility]5 [facility] [place] (15 min) Moderate 07/23/2017 Patient Education: [...] monitor symptoms. 07/09/2017 Appointment: Araceli Silva WPtel: [facility] [place] (15 min) Moderate 07/09/2017 Patient Education: [...] Araceli Silva WPtel: [facility] [place] (15 min) Moderate 07/01/2017 Patient Education: Patient Medication Summary Completed 07/01/2017 Visit Plan: Chronic Pain Syndrome - pt has chronic pain - has been maintained on current medications, has not sought out other medications , only uses PRN pain medications as directed, and understands the consequences of over-medication. 06/24/2017 Appointment: Araceli Silva WPtel: [facility]5 [facility] (15 min) Moderate 06/24/2017 Patient Education: Patient [...] Araceli Silva WPtel: [facility]5 [facility] [place] (30 min) Complex 06/17/2017 Patient Education: Patient Medication Summary Completed 06/17/2017 Appointment: Araceli Silva WPtel: [facility]5 [facility] (15 min) Moderate 06/08/2017 Care Plan: Referral Order SNOMED-CT : [id number] Pending 06/02/2017 Visit Plan: Left and right [...] edema. 06/01/2017 Appointment: [facility]icel [facility]ee [facility]: [facility] [place] (30 min) Complex 06/01/2017 Patient Education: [...] from shoulder 04/02/2017 Appointment: Araceli Silva [facility]Ptel: [address] [facility] [place] (15 min) Moderate 04/02/2017 Patient Education: [...] stomach upset. 03/12/2017 Appointment: Araceli Silva WPtel: [address] [facility] [place] (15 min) Moderate 03/12/2017 Patient Education: [...] check ROMIE. 01/08/2017 Appointment: Araceli Silva [facility]Ptel: [address] [facility] (15 min) Moderate 01/08/2017 Patient Education: Patient [...] with Remicaide. 12/08/2016 Appointment: Araceli Silva WPtel: [address] [facility] (15 min) Moderate 12/08/2016 Patient Education: Patient [...] for now 11/17/2016 Appointment: Araceli Silva [facility]Ptel: [address] [facility] [place] (15 min) Moderate 11/17/2016 Patient Education: [...] Maricel Gee WPtel: [facility]5 [facility] (30 min) Complex 11/10/2016 Patient Education: [...] steroids, immunosuppression. 11/05/2016 Appointment: Araceli Silva WPtel: [facility]7 [facility] (15 min) Moderate 11/05/2016 Patient Education: Patient [...] today. 10/07/2016 Appointment: Araceli Silva [facility]Ptel: [address] [facility] (15 min) Moderate 10/07/2016 Patient Education: Patient Medication Summary Completed 10/07/2016 Care Plan: Referral Order SNOMED-CT : [id number] Pending 10/07/2016 Care Plan: Referral Order SNOMED-CT : [id number] Pending 10/07/2016 Visit Plan: Hemarthrosis -right shoulder-only able to drain 5ml of bloody drainage-unable to give oral steroids due to recent GI bleed -will give kenalog injection today in the office-discussed getting OSMO patch 10/02/2016 Appointment: Ila Kennedy WPtel: [phone] [phone] [place] (30 min) Complex 10/02/2016 Patient Education: Patient Medication Summary Completed 10/02/2016 Appointment: Araceli Silva WPtel: 1011 [facility] [place] (15 min) Moderate 09/23/2016 Appointment: Araceli Silva WPtel: [facility]1 [facility] [place] (15 min) Moderate 09/17/2016 Visit Plan: Sacroiliitis - back exercises discussed with the patient, pt to continue with anti-inflammatories. Pt is to call if the symptoms do not improve or if they worsen. Kenalog injection today in the office. 09/12/2016 Appointment: Ila Kennedy WPtel: [phone] [place] (15 min) Moderate 09/12/2016 Patient Education: Patient Medication Summary Completed 09/12/2016 Visit Plan: Hemarthrosis - drain right shoulder. Injection of kenalog 1mL - 40mg - Rewalon - lot #[id number] , expires oct 2017 Chronic Pain Syndrome [...] of over-medication. 09/08/2016 Appointment: Araceli Silva WPtel: [facility] [place] (15 min) Moderate 09/08/2016 Patient Education: [...] magnesium level 08/26/2016 Appointment: Araceli Silva WPtel: [facility]5 [facility] (15 min) Moderate 08/26/2016 Patient Education: Patient [...] Summary Completed 08/18/2016 Appointment: Araceli Silva WPtel: [address] [place], [place] [id number] (15 min) Moderate 08/13/2016 Appointment: Araceli Silva WPtel: [address] [place], [place] [id number] (15 min) Moderate 08/06/2016 Visit Plan: [...] daytime. 07/30/2016 Appointment: Araceli Silva WPtel: 1015 [facility] (15 min) Moderate 07/30/2016 Patient Education: Patient Medication Summary Completed 07/30/2016 Visit Plan: Left shoulder pain - improving - pt is to notify clinic if symptoms do not improve, if they worsen, or with any questions or concerns. Nocturia - will give samples, pt is to notify clinic if symptoms do not improve. 07/14/2016 Appointment: Maricel Gee WPtel: 1012 [facility] (30 min) Complex 07/14/2016 Patient Education: [...] dyspnea. 07/04/2016 Appointment: Maricel Gee WPtel: 1015 [facility] (30 min) Complex 07/04/2016 Patient Education: Patient [...] over- medication. 06/26/2016 Appointment: Araceli Silva [facility]Ptel: [address] [facility] [place] (15 min) Moderate 06/26/2016 Patient Education: [...] over-medication. 05/28/2016 Appointment: Araceli Silva [facility]Ptel[facility] [facility] [place] (15 min) Moderate 05/28/2016 Patient Education: Patient Medication Summary Completed 05/28/2016 Patient Education: Hypertension Completed 05/28/2016 Appointment: Araceli Silva [facility]Ptel: [address] [facility] [place] (15 min) Moderate 05/12/2016 Appointment: Araceli Silva [facility]Ptel: [facility] [facility] [place] (15 min) Moderate 04/15/2016 Appointment: Araceli Silva WPtel: 1015 [facility] [place] (30 min) Complex 03/25/2016 Visit Plan: [...] premarin. 03/18/2016 Appointment: Araceli Silva [facility]Ptel: [facility] [facility] [place] (30 min) Complex 03/18/2016 Patient Education: Patient Medication Summary Completed 03/18/2016 Appointment: Araceli Silva WPtel: [facility] [facility] [place] (15 min) Moderate 02/19/2016 Visit Plan: [...] over-medication. 01/29/2016 Appointment: Araceli Silva WPtel: 1011 [facility] (15 min) Moderate 01/29/2016 Patient Education: Patient Medication Summary Completed 01/29/2016 Visit Plan: Discussed MRI of the neck - pt is interested in doing this - however, not prior to changing her medication first to see if this helps her pain 01/01/2016 Appointment: Araceli Silva WPtel: 1014 [facility] [place] (15 min) Moderate 01/01/2016 Patient Education: Patient Medication Summary Completed 01/01/2016 Patient Education: Hypertension Completed 01/01/2016 Appointment: Araceli Silva WPtel: 101 [facility] [place] (15 min) Moderate 12/03/2015 Visit Plan: [...] or nonhealing. 11/01/2015 Appointment: Ila Kennedy WPtel: 1015 [phone] (15 min) Moderate 11/01/2015 Patient Education: Patient Medication Summary Completed 11/01/2015 Visit Plan: Chronic Pain Syndrome - pt has chronic pain - has been maintained on current medications, has not sought out other medications , only uses PRN pain medications as directed, and understands the consequences of over-medication. Muscle spasms - recommended muscle rub. 09/04/2015 Appointment: Araceli Silva WPtel: [facility]6[address] (15 min) Moderate 09/04/2015 Patient Education: Patient Medication Summary Completed 09/04/2015 Visit Plan: Ecchymosis/hematoma - improving - discussed natural progression of hematomas - watchful waiting. 2015 Appointment: Araceli Silva WPtel: [facility]9 [facility] (15 min) Moderate 2015 Patient Education: Patient Medication Summary Completed 2015 Visit Plan: Cellulitis - continue with oral antibiotics as previously directed, return to clinic as previously directed, call for acute change in symptoms, worsening redness, warmth, discharge. 07/18/2015 Appointment: Ila Kennedy WPtel: 1015 [phone] [place] (30 min) Complex 07/18/2015 Patient Education: [...] center/surgery center. 07/02/2015 Appointment: Araceli Silva WPtel: 1015 [facility] (15 min) Moderate 07/02/2015 Patient Education: Patient [...] removal process. 04/09/2015 Appointment: Arac[facility] Silva [facility]Ptel[facility] (15 min) Moderate 04/09/2015 Patient Education: Patient [...] supplementation. 02/08/2015 Appointment: Araceli Silva WPtel: [facility] (15 min) Moderate 02/08/2015 Patient Education: Patient [...] the evening. 12/11/2014 Appointment: Araceli Silva WPtel: [address] [place] [address] (15 min) Moderate 12/11/2014 Patient Education: Patient [...] - improved. 11/09/2014 Appointment: Araceli Silva WPtel: [address] [place] [address] (15 min) Moderate 11/09/2014 Patient Education: Patient Medication Summary Completed 11/09/2014 Patient Education: Hypertension Completed 11/09/2014 Visit Plan: Leg pain/cellulitis of leg - start on the doxycycline twice daily - take this x 2 weeks, if the symptoms in your leg/ thigh are not completely resolved, there is a refill that is available. start on a probiotic one pill daily ([employer] or [employer]) this will help prevent the development of a bad type of diarrhea that can occur when taking antibiotics. Ulcer of toe - improving. 10/23/2014 Appointment: Araceli Silva WPtel: [facility]2 [address] (15 min) Moderate 10/23/2014 Patient Education: Patient Medication Summary Completed 10/23/2014 Visit Plan: Ulcer - keep lesion covered, antibiotic ointment to be used, monitor - call if redness increases or starts streaking up the foot. 10/16/2014 Appointment: Araceli Silva [facility]Ptel: [facility] (15 min) Moderate 10/16/2014 Patient Education: Patient [...] peripheral edema. 09/14/2014 Appointment: Araceli Silva WPtel: [facility] Follow up 09/14/2014 Patient Education: Patient Medication [...] medication. 07/12/2014 Appointment: [facility] Silva WPtel[facility] [place] (S) New Patient 07/12/2014 Patient Education: Patient Medication Summary Completed 07/12/2014 Patient Education: Hypertension Completed 07/12/2014 Referral: Dr Virgen Referral Completed Referral: External, Ordering Provider Referral Completed Referral: [facility] WPtel: Referral Initiated Instructions Comment [...] today in the office-discussed getting OSMO patch decrease the fentanyl to 100mcg start on gabapentin at 100mg at night x 1 week and increase by one pill weekly up to 100mg three times daily increase prednisone to 20mg daily x 1 week then decrease to 10mg daily x 1 week then go back to usual regimen of 5mg prednisone daily . Chronic Pain Syndrome - pt has chronic pain - has been maintained on current medications, has not sought out other medications, only uses PRN pain medications as directed, and understands the consequences of over-medication. decrease the fentanyl to 100mcg start on gabapentin at 100mg at night x 1 week and increase by one pill weekly up to 100mg three times daily increase prednisone to 20mg daily x 1 week then decrease to 10mg daily x 1 week then go back to usual regimen of 5mg prednisone daily Constipation - advised pt that she should not take double the miralax dose when she is having constipation - she needs to use miralax and drink prune juice and take an extra 1/2 teaspoon of miralax. . Chronic Pain Syndrome - pt has [...] to further attempt to reduce peripheral edema. Gatorade or [employer] rehydration solution: 24 ounces water 8 ounce fruit juice 6 tablespoon sugar 1/2 teaspoon salt phenergan shot today zofran and phenergan as needed for nausea/vomiting . Gastroenteritis - discussed need to stay away from milk products while acutely ill with diarrhea and nausea and emesis as it may worsen the symptoms. Liquids initially until the nausea improves, then recommend to advance to bland diet for 1 day, then advance as tolerated. Call if symptoms not improved. Diarrhea - recommended bland diet, low fat diet, start on probiotic, and rehydrate with gatorade-like product. Pt to call if feeling worse, diarrhea becomes bloody, or does not improve with above recommendations. Pt to call for acute worsening of stomach upset or stomach pain. . Chronic neck pain, arthritis, right arm [...] Injection of kenalog 1mL - 40mg - Rewalon - lot #[id number] , expires oct 2017 Chronic Pain Syndrome [...] start on a probiotic one pill daily ([employer] or [employer]) this will help prevent the development of a bad type of diarrhea that can occur when taking antibiotics. . Leg pain/cellulitis of leg - start on the doxycycline twice daily - take this x 2 weeks, if the symptoms in your leg/thigh are not completely resolved, there is a refill that is available. start on a probiotic one pill daily ([employer] or [employer]) this will help prevent the development of [...] hands/fingers. We will contact [facility] in [place] for paperwork regarding the scooter. . Hypertension [...] progression of hematomas - watchful waiting. . Bronchitis - acute case of bronchitis identified. Pt has been given antibiotics, breathing treatments as appropriate, and pt has been instructed to call if symptoms are not improved, or if symptoms acutely worsen. . Bronchitis - acute case of bronchitis identified. Pt has been given antibiotics, breathing treatments as appropriate, and pt has been instructed to call if symptoms are not improved, or if symptoms acutely worsen. ADDENDUM: Patient has COPD and would benefit from nebulizer treatments with albuterol to help with cough, wheezing and shortness of breath -will send rx to [facility] next mammogram will be due in Oct. [...] to continue with use of compression sleeves. [id number] sep 2018 bristol 2ml kenalog . Edema/Lymphedema - prn metalozone rx sent to pharmacy. Keep legs elevated and wrapped. Chronic Pain Syndrome - pt has chronic pain - has been maintained on current medications, has not sought out other medications, only uses PRN pain medications as directed, and understands the consequences of over-medication. . Edema/Lymphedema - prn metalozone rx sent [...] in blood pressure readings at home. Chronic constipation - alternating with diarrhea - continue with miralax, increased fluids - monitor symptoms. Chronic pain syndrome - continue with fentanyl . Hypertension - well controlled - continue [...] further attempt to reduce peripheral edema. . Melena - hemorrhoidal tissue- discussed with pt and her daughter - rx for proctofoam and suppositories given to patient - they will car pick up driver the RX that is 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 Avoid straining when having bowel movements. Monitor symptoms closely. . Hemarthrosis shoulders - 120mL from left [...] continue with supportive care at this time. OKAY FOR ROBITUSSIN DM TO USE NEEDED LOMOTIL 1 TAB TWICE DAILY X 2 DAYS THEN TWICE DAILY NEEDED FOR DIARRHEA OKAY TO USE METOLAZONE DAILY IF SWELLING INCREASES . Chronic Pain Syndrome - pt has chronic pain - has been maintained on current medications, has not sought out other medications, only uses PRN pain medications as directed, and understands the consequences of over-medication. Rnwrj-akihfcjomw-oqsqsnzf with lasix/metolazone -if swelling/weight increase, okay to increase metolazone to daily as directed Cough- okay for robitussin dm Diarrhea- rx for lomotil written and instructed on use-follow up in 3 weeks, sooner if needed. Call with any concerns. . Edema - pt has been advised to elevate legs to prevent dependent edema, compression has been recommended to help to naturally decrease peripheral edema. Diuretic use has been discussed and pt has been instructed in appropriate use of such medication as necessary to further attempt to reduce peripheral edema. increase the gabapentin to two pills three times daily.. Hypertension - well controlled - continue with current medications, continue with no added salt diet. Pt has been encouraged to exercise daily. The pt has been advised to call the office if there are any acute concerns about change in blood pressure readings at home. Chronic Pain Syndrome - pt has chronic pain - has not been well maintained on current medications, she needs to have increased dose of gabapentin 200mg three times daily - may need to increase dose further if pain does not improve, she understands the consequences of over-medication. . Sacroiliitis - back exercises discussed with the patient , pt to continue with anti-inflammatories. Pt is to call if the symptoms do not improve or if they worsen. Kenalog injection today in the office. two old goats muscle rub from [employer] [facility]. . Chronic Pain Syndrome [...]
--- OUTSIDE RECORDS SUMMARY | 2018-06-03 15:33 | XMS REPORT | CCD ---
Author Author Araceli Silva Organization Araceli Silva MD, [facility] Address [address] [place] [address] Phone Care Team Providers Care Engraver Wood Name Role Phone PP Unavailable CCM Unavailable Summary Purpose Interface Exchange Insurance Providers Payer name Policy type / Coverage type Covered republican ID Effective Begin Date Effective End Date [employer] [employer] Medicare Part B [id number] 2017 Unknown AET[employer] Medicare Part B [id number] Unknown Family history Father Diagnosis Age At [...] Unknown Retired 07/12/[address]: 8905927 Quit over 10 years ago 1967 07/12/2014 Alcohol history Unknown occasionally drinks alcohol 07/12/2014 Allergies, Adverse Reactions, Alerts Substance Reaction Codes Entered Date Inactivated Date Status * NO KNOWN FOOD ALLERGIES Unknown 07/12/2014 No Inactive Date Active Penicillin Unknown 07/12/2014 No Inactive Date Active SULFA(SULFONAMIDE ANTIBIOTICS) Unknown 07/12/2014 No Inactive Date Active Past Medical History Illness Codes Condition Status Onset Date Resolved Date First degree hemorrhoids ICD-9: 455.0 ICD-10: K64.0 Active 05/10/2018 Unknown Other specified diseases of anus and rectum ICD-9: 569.42 ICD-10: K62.89 Active 05/10/2018 Unknown Sciatica Unknown Active 05/04/2018 Unknown Chronic pain syndrome ICD-9: 338.4 ICD-10: G89.4 Active 10/07/2016 Unknown Primary osteoarthritis, 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 ICD-10: M19.012 Active 10/07/2016 Unknown Primary osteoarthritis, right shoulder ICD-9: 715.91 ICD-10: M19.011 Active 10/07/2016 Unknown Sciatica, right side ICD-9: 724.3 ICD-10: M54.31 Active 05/04/2018 Unknown Slow transit constipation ICD-9: 564.01 ICD-10: K59.01 Active 05/04/2018 Unknown Diarrhea, unspecified ICD-9: 787.91 ICD-10: R19.7 Active 02/09/2018 Unknown Essential (primary) hypertension ICD-9: 401.1 ICD-10: I10 Active 09/29/2017 Unknown Hypo-osmolality and hyponatremia ICD-9: 276.1 ICD-10: [...] Problems Condition Codes Effective Dates Condition Status First degree hemorrhoids ICD-9: 455.0 ICD-10: K64.0 05/10/2018 Active Other specified diseases of anus and rectum ICD-9: 569.42 ICD-10: K62.89 05/10/2018 Active Sciatica Unknown 05/04/2018 Active Chronic pain syndrome ICD-9: 338.4 ICD-10: G89.4 10/07/2016 Active Primary osteoarthritis, 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 ICD-10: M19.012 10/07/2016 Active Primary osteoarthritis, right shoulder ICD-9: 715.91 ICD-10: M19.011 10/07/2016 Active Sciatica, right side ICD-9: 724.3 ICD-10: M54.31 05/04/2018 Active Slow transit constipation ICD-9: 564.01 ICD-10: K59.01 05/04/2018 Active Diarrhea, unspecified ICD-9: 787.91 ICD-10: R19.7 02/09/2018 Active Essential (primary) hypertension ICD-9: 401.1 ICD-10: I10 09/29/2017 Active Hypo-osmolality and hyponatremia ICD-9: 276.1 ICD-10: [...] Cardizem CD 360 mg capsule,extended release RxNorm: 134579 TAKE 1 CAPSULE BY MOUTH ONCE DAILY 05/28/2018 No Stop Date Active oxycodone 30 mg tablet RxNorm: 5612654 1/2 Tablet(s) PO Q6 07/15/2018 Active Lasix 40 mg tablet RxNorm: 001085 1 Tablet(s) PO BID 201807/10/2018 Active Proctocort 30 mg rectal suppository RxNorm: 0215255 1 Suppository RTL daily x 1 wk then daily prn hemorrhoids 05/10/2018 No Stop Date Active fentanyl 100 mcg/hr transdermal patch RxNorm: 481947 1 Patch TD Q72H 05/07/2018 06/05/2018 Active gabapentin 100 mg capsule RxNorm: 974187 1 Capsule(s) PO at bedtime x 1 week then increase up to one pill twice daily x 1 wk then TID thereafter 05/04/2018 08/31/2018 Active prednisone 10 mg tablet RxNorm: 034139 1 Tablet(s) PO UD 2 tabs daily x 1 week then decrease to 1 pill daily x 1 week then go back to 5mg daily 05/04/2018 05/24/2018 Inactive promethazine 25 mg/mL injection solution RxNorm: 696176 Milliliter(s) Inj 04/21/2018 04/21/2018 Inactive ondansetron 4 mg disintegrating tablet RxNorm: 789863 1 Tablet(s) PO TID as needed nausea and vomitting 04/21/2018 Inactive ondansetron 4 mg disintegrating tablet RxNorm: 693871 1 Tablet(s) PO TID as needed nausea and vomitting 04/21/2018 Inactive promethazine 25 mg tablet RxNorm: 964087 1 Tablet(s) PO TID as needed nausea and vomitting 04/21/2018 05/20/2018 Inactive promethazine 25 mg tablet RxNorm: 000582 1 Tablet(s) PO TID as needed nausea and vomitting 04/21/2018 04/25/2018 Inactive metolazone 10 mg tablet RxNorm: 922171 1 Tablet(s) PO every other day uncontrolled edema 04/08/2018 12/03/2018 Active fentanyl 100 mcg/hr transdermal patch RxNorm: 368171 1 Patch TD Q72H use with 25mcg/hr patch 04/07/2018 05/06/2018 Inactive fentanyl 25 mcg/hr transdermal patch RxNorm: 129162 1 Patch TD Q72H use with 100mcg patch for a total of 125mcg daily 04/07/2018 05/03/2018 Inactive potassium chloride ER 10 mEq tablet,extended release(part/ cryst) RxNorm: 7409873 2 Tablet(s) PO TID 03/30/2018 07/27/2018 Active oxycodone 30 mg tablet RxNorm: 6895647 1/2 Tablet(s) PO Q6 05/15/2018 Inactive fentanyl 25 mcg/hr transdermal patch RxNorm: 248638 1 Patch TD Q72H use with 100mcg patch for a total of 125mcg daily 03/17/2018 04/06/2018 Inactive Lasix 40 mg tablet RxNorm: 865867 Tablet(s) PO TAKE 1 TABLET BY MOUTH TWICE DAILY 03/04/2018 05/11/2018 Inactive fentanyl 100 mcg/hr transdermal patch RxNorm: 791035 1 Patch TD Q72H use with 25mcg/hr patch 03/03/2018 04/01/2018 Inactive potassium chloride ER 10 mEq capsule,extended release RxNorm: 462935 2 Capsule(s) PO TID 03/03/2018 03/29/2018 Inactive albuterol sulfate 2.5 mg/3 mL (0.083 %) solution for nebulization RxNorm: 912561 3 Milliliter(s) INH Q4 PRN 02/18/2018 No Stop Date Active cefdinir 300 mg capsule RxNorm: 488550 1 Capsule(s) PO BID 02/24/2018 Inactive cefdinir 300 mg capsule RxNorm: 403034 1 Capsule(s) PO BID 02/17/2018 Inactive Flonase Allergy Relief 50 mcg/actuation nasal spray, suspension RxNorm: 0725876 2 Victor NASAL daily 02/12/20182017 Inactive Zithromax Z-Humberto 250 mg tablet RxNorm: 579644 1 Tablet(s) PO UD 02/12/2018 02/16/2018 Inactive Lomotil 2.5 mg-0.025 mg tablet RxNorm: 4609878 1 Tablet(s) PO BID PRN 02/09/2018 No Stop Date Active fentanyl 25 mcg/hr transdermal patch RxNorm: 409283 1 Patch TD Q72H use with 100mcg patch for a total of 125mcg daily 02/09/2018 03/10/2018 Inactive oxycodone 30 mg tablet RxNorm: 1387083 1/2 Tablet(s) PO Q6 03/14/2018 Inactive metolazone 10 mg tablet RxNorm: 498796 1 Tablet(s) PO QAM as needed uncontrolled edema 01/14/2018 03/14/2018 Inactive fentanyl 100 mcg/hr transdermal patch RxNorm: 514945 1 Patch TD Q72H use with 25mcg/hr patch 01/14/2018 02/12/2018 Inactive fentanyl 25 mcg/hr transdermal patch RxNorm: 463217 1 Patch TD Q72H use with 100mcg patch for a total of 125mcg daily 01/14/2018 02/08/2018 Inactive metolazone 10 mg tablet RxNorm: 689568 1 Tablet(s) PO every other day as needed uncontrolled edema 01/07/2018 01/13/2018 Inactive metolazone 10 mg tablet RxNorm: 888463 1 Tablet(s) PO every other day as needed uncontrolled edema 01/07/2018 01/06/2018 Inactive Cipro 500 mg tablet RxNorm: 541181 1 Tablet(s) PO BID 201701/05/2018 Inactive Cipro 500 mg tablet RxNorm: 651750 1 Tablet(s) PO BID 201701/15/2018 Inactive potassium chloride ER 10 mEq tablet,extended release(part/ cryst) RxNorm: 4132248 2 Capsule(s) PO TID when taking lasix 01/05/2018 05/04/2018 Inactive Cardizem CD 360 mg capsule,extended release RxNorm: 768562 1 Capsule(s) PO daily 01/05/2018 05/04/2018 Inactive potassium chloride ER 10 mEq capsule,extended release RxNorm: 051733 Capsule(s) TAKE 1 CAPSULE BY MOUTH TWICE DAILY WHEN TAKING LASIX (FUROSEMIDE) 11/27/2017 03/02/2018 Inactive potassium chloride ER 10 mEq capsule,extended release RxNorm: 286661 Capsule(s) TAKE 1 CAPSULE BY MOUTH TWICE DAILY WHEN TAKING LASIX (FUROSEMIDE) 11/27/2017 11/26/2017 Inactive fentanyl 25 mcg/hr transdermal patch RxNorm: 698969 1 Patch TD Q72H use with 100mcg patch for a total of 125mcg daily 11/27/2017 12/26/2017 Inactive bumetanide 0.5 mg tablet RxNorm: 494128 1 Tablet(s) PO daily 12/23/2017 Inactive in the afternoon x 3 days then as needed per Dr Silva fentanyl 100 mcg/hr transdermal patch RxNorm: 549585 1 Patch TD Q72H use with 25mcg/hr patch 11/27/2017 12/26/2017 Inactive oxycodone 30 mg tablet RxNorm: 2664244 1/2 Tablet(s) PO Q6 12/27/2017 Inactive fentanyl 100 mcg/hr transdermal patch RxNorm: 378552 1 Patch TD Q72H use with 25mcg/hr patch 10/29/2017 11/26/2017 Inactive Lasix 20 mg tablet RxNorm: 589171 TAKE 1 TABLET BY MOUTH TWICE DAILY 10/29/2017 03/03/2018 Inactive fentanyl 25 mcg/hr transdermal patch RxNorm: 692654 1 Patch TD Q72H use with 100mcg patch for a total of 125mcg daily 10/29/2017 11/26/2017 Inactive pantoprazole 40 mg tablet,delayed release RxNorm: 308608 Tablet(s) Take 1 tablet by mouth daily 10/21/2017 04/18/2018 Inactive - Ref: [id number] potassium chloride ER 10 mEq capsule,extended release RxNorm: 327483 TAKE 1 CAPSULE BY MOUTH TWICE DAILY WHEN TAKING LASIX (FUROSEMIDE) 10/09/2017 11/26/2017 Inactive fentanyl 25 mcg/hr transdermal patch RxNorm: 075313 1 Patch TD Q72H use with 100mcg patch for a total of 125mcg daily 10/01/2017 10/28/2017 Inactive fentanyl 100 mcg/hr transdermal patch RxNorm: 390882 1 Patch TD Q72H use with 25mcg/hr patch 10/01/2017 10/28/2017 Inactive potassium chloride ER 10 mEq tablet,extended release(part/ cryst) RxNorm: 3268068 1 Capsule(s) PO BID when taking lasix 09/22/2017 01/04/2018 Inactive fentanyl 100 mcg/hr transdermal patch RxNorm: 965159 1 Patch TD Q72H use with 25mcg/hr patch 08/31/2017 09/29/2017 Inactive Kenalog 40 mg/mL suspension for injection RxNorm: 0162840 1 Milliliter(s) Inj 08/31/2017 08/31/2017 Inactive fentanyl 25 mcg/hr transdermal patch RxNorm: 758156 1 Patch TD Q72H use with 100mcg patch for a total of 125mcg daily 08/31/2017 09/29/2017 Inactive oxycodone 30 mg tablet RxNorm: 7144090 1/2 Tablet(s) PO Q6 04/201710/28/2017 Inactive cyanocobalamin (vit B-12) 1,000 mcg/mL injection solution RxNorm: 025008 1 Milliliter(s) Inj monthly 08/21/201708/15 Active please provide her with syringe/needle for injection cyanocobalamin (vit B-12) 1,000 mcg/mL injection solution RxNorm: 963364 1 Milliliter(s) Inj monthly 08/21/201708/20 Inactive please provide her with syringe/needle for injection Kenalog 40 mg/mL suspension for injection RxNorm: 2655711 2 Milliliter(s) Inj 1mL in each shoulder 08/21/2017 08/21/2017 Inactive cyanocobalamin (vit B-12) 1,000 mcg/mL injection solution RxNorm: 200365 1 Milliliter(s) Inj monthly 08/21/201708/20 Inactive please provide her with syringe/needle for injection Kenalog 40 mg/mL suspension for injection RxNorm: 0478334 2 Milliliter(s) Inj UD 08/12/2017 08/12/2017 Inactive fentanyl 25 mcg/hr transdermal patch RxNorm: 181230 1 Patch TD Q72H use with 100mcg patch for a total of 125mcg daily 08/05/2017 08/30/2017 Inactive fentanyl 100 mcg/hr transdermal patch RxNorm: 815570 1 Patch TD Q72H use with 25mcg/hr patch 08/05/2017 08/30/2017 Inactive Kenalog 40 mg/mL suspension for injection RxNorm: 2099550 2 Milliliter(s) Inj 1mL per shoulder 08/05/2017 08/05/2017 Inactive clindamycin HCl 150 mg capsule RxNorm: 704407 1 Capsule(s) PO QID Dr Shultz prescribed 07/23/2017 07/29/2017 Inactive prednisone 5 mg tablet RxNorm: 453155 1 Tablet(s) PO daily 11/201707/03/2018 Active fentanyl 25 mcg/hr transdermal patch RxNorm: 465243 1 Patch TD Q72H use with 100mcg patch for a total of 125mcg daily 07/01/2017 07/30/2017 Inactive Lasix 20 mg tablet RxNorm: 113361 1 Tablet(s) PO BID 201710/28/2017 Inactive fentanyl 100 mcg/hr transdermal patch RxNorm: 743008 1 Patch TD Q72H use with 25mcg/hr patch 07/01/2017 07/30/2017 Inactive potassium chloride ER 10 mEq capsule,extended release RxNorm: 291513 1 Capsule(s) PO BID when taking lasix 07/01/20172017 Inactive oxycodone 30 mg tablet RxNorm: 1724461 1/2 Tablet(s) PO Q6 08/22/2017 Inactive fentanyl 100 mcg/hr transdermal patch RxNorm: 080804 1 Patch TD Q72H use with 25mcg/hr patch 05/07/2017 06/05/2017 Inactive fentanyl 25 mcg/hr transdermal patch RxNorm: 908243 1 Patch TD Q72H use with 100mcg patch for a total of 125mcg daily 05/07/2017 06/05/2017 Inactive fentanyl 100 mcg/hr transdermal patch RxNorm: 431866 1 Patch TD Q72H 04/08/2017 05/06/2017 Inactive fentanyl 25 mcg/hr transdermal patch RxNorm: 067743 1 Patch TD Q72H use with 100mcg patch for a total of 125mcg daily 04/08/2017 05/06/2017 Inactive Kenalog 40 mg/mL suspension for injection RxNorm: 6718625 1.5 Milliliter(s) Inj 04/02/2017 04/02/2017 Inactive fentanyl 100 mcg/hr transdermal patch RxNorm: 316137 1 Patch TD Q72H 03/12/2017 04/07/2017 Inactive fentanyl 25 mcg/hr transdermal patch RxNorm: 074448 1 Patch TD Q72H use with 100mcg patch for a total of 125mcg daily 03/12/2017 04/07/2017 Inactive oxycodone 30 mg tablet RxNorm: 7796381 1/2 Tablet(s) PO Q6 09/201704/07/2017 Inactive cyanocobalamin (vit B-12) 1,000 mcg/mL injection syringe RxNorm: 777961 1 Milliliter(s) Inj monthly 02/16/2017 No Stop Date Active please provide with supplys needed for injection fentanyl 100 mcg/hr transdermal patch RxNorm: 291421 1 Patch TD Q72H 02/06/2017 03/07/2017 Inactive Myrbetriq 50 mg tablet,extended release RxNorm: 2722817 1 Tablet(s) PO QPM 12/11/2016 07/22/2017 Inactive oxycodone 30 mg tablet RxNorm: 8645932 1/2 Tablet(s) PO Q6 10/201601/06/2017 Inactive naproxen 500 mg tablet RxNorm: 448113 1 Tablet(s) PO BID Take 1 tablet by mouth two times daily as needed 12/08/201607/08 Inactive - First Attempt Ref: [id number] Myrbetriq 50 mg tablet,extended release RxNorm: 8595714 1 Tablet(s) PO QPM 11/17/2016 12/10/2016 Inactive fentanyl 100 mcg/hr transdermal patch RxNorm: 732833 1 Patch TD Q72H 11/12/2016 12/11/2016 Inactive Vesicare 10 mg tablet RxNorm: 330738 1 Tablet(s) PO QPM 201611/18/2016 Inactive oxycodone 10 mg tablet RxNorm: 4378518 1-2 Tablet(s) PO Q4 PRN as needed to take between 30mg dose if needed for extra pain control 201612/07/2016 Inactive fentanyl 75 mcg/hr transdermal patch RxNorm: 649541 1 TD Q72H 10/22/2016 11/10/2016 Inactive oxycodone 10 mg tablet RxNorm: 0880760 1-2 Tablet(s) PO Q4 PRN as needed to take between 30mg dose if needed for extra pain control 201611/04/2016 Inactive Kenalog 40 mg/mL suspension for injection RxNorm: 1664466 1 Milliliter(s) Inj 10/02/2016 10/02/2016 Inactive Kenalog 40 mg/mL suspension for injection RxNorm: 8356690 1 Milliliter(s) Inj 09/12/2016 09/12/2016 Inactive cyclobenzaprine 5 mg tablet RxNorm: 577506 1 Tablet(s) PO Q8 as needed muscle spasms 09/11/2016 07/22/2017 Inactive prednisone 10 mg tablets in a dose pack RxNorm: 135152 1 Tablet(s) PO UD 09/09/2016 06/23/2017 Inactive potassium chloride ER 10 mEq capsule,extended release RxNorm: 940683 1 Capsule(s) PO BID as needed when taking lasix 08/26/2016 06/30/2017 Inactive Lasix 20 mg tablet RxNorm: 543472 1 Tablet(s) PO BID daily x 10 days then as needed edema 08/26/2016 12/23/2016 Inactive naproxen 500 mg tablet RxNorm: 352401 Take 1 tablet by mouth two times daily as needed 08/18/2016 11/15/2016 Inactive - First Attempt Ref: [id number] Lasix 20 mg tablet RxNorm: 384848 1 Tablet(s) PO QAM daily x 10 days then as needed edema 08/18/2016 08/25/2016 Inactive Vesicare 5 mg tablet RxNorm: 202262 1 Tablet(s) PO QPM 201611/04/2016 Inactive potassium chloride ER 10 mEq capsule,extended release RxNorm: 981390 1 Capsule(s) PO QAM as needed when taking lasix 08/18/2016 08/25/2016 Inactive Myrbetriq 25 mg tablet,extended release RxNorm: 4950141 1 Tablet(s) PO QHS 07/14/2016 07/29/2016 Inactive pantoprazole 40 mg tablet,delayed release RxNorm: 137760 Take 1 tablet by mouth daily 06/30/2016 12/26/2016 Inactive - Ref: [id number] Embeda 20 mg-0.8 mg capsule, extend release, oral only RxNorm: 790134 1 Capsule(s ) PO daily 06/04/2016 06/03/2016 Inactive Embeda 20 mg-0.8 mg capsule, extend release, oral only RxNorm: 206820 1 Capsule(s ) PO daily 06/04/2016 07/01/2016 Inactive oxycodone 10 mg tablet RxNorm: 9716566 1 Tablet(s) PO QID as needed to take between 30mg dose if needed for extra pain control 201606/10/2016 Inactive oxycodone 30 mg tablet RxNorm: 4645958 1 Tablet(s) PO Q6 201611/04/2016 Inactive cyanocobalamin (vit B-12) 1,000 mcg/mL injection solution RxNorm: 088321 1 Milliliter(s) Inj monthly 02/22/201602/15 Inactive she also needs syringes/ needles for this solution QS oxycodone 30 mg tablet RxNorm: 5467002 1 Tablet(s) PO Q6 201503/19/2016 Inactive oxycodone 10 mg tablet RxNorm: 8390533 1 Tablet(s) PO QID as needed to take between 30mg dose if needed for extra pain control 201503/19/2016 Inactive oxycodone 10 mg tablet RxNorm: 9172698 1 Tablet(s) PO QID as needed to take between 30mg dose if needed for extra pain control 201502/18/2016 Inactive oxycodone 30 mg tablet RxNorm: 5866060 1 Tablet(s) PO Q6 201502/18/2016 Inactive pantoprazole 40 mg tablet,delayed release RxNorm: 989418 Take 1 tablet by mouth daily 01/22/2016 06/29/2016 Inactive - First Attempt Ref: [id number] oxycodone 30 mg tablet RxNorm: 9172891 1 Tablet(s) PO Q6 201501/28/2016 Inactive oxycodone 10 mg tablet RxNorm: 5513545 1 Tablet(s) PO QID as needed take between 20mg dose if needed for extra pain control 11/07/2015 12/06/2015 Inactive oxycodone 20 mg tablet RxNorm: 2133800 1 Tablet(s) PO Q6 as needed 11/07/2015 12/31/2015 Inactive doxycycline hyclate 100 mg tablet RxNorm: 374471 1 Tablet(s) PO BID 11/01/2015 11/10/2015 Inactive potassium chloride ER 10 mEq capsule,extended release RxNorm: 866422 1 Capsule(s) PO TIW as needed when taking lasix 09/04/2015 08/17/2016 Inactive Voltaren 1 % topical gel RxNorm: 651536 2 Gram(s) TOP QID 08/2909/03/2015 Inactive pa approved Voltaren 1 % topical gel RxNorm: 468755 2 Gram(s) TOP QID 08/0808/29/2015 Inactive naproxen 500 mg tablet RxNorm: 881962 1 Tablet(s) PO BID 201508/17/2016 Inactive naproxen 500 mg tablet RxNorm: 286833 1 Tablet(s) PO BID 201508/08/2015 Inactive doxycycline hyclate 100 mg tablet RxNorm: 460595 1 Tablet(s) PO BID do not take calcium/vitamin d while on antibiotic 07/18/2015 07/31/2015 Inactive Vitamin D2 50,000 unit capsule RxNorm: 267545 1 Capsule(s) PO QW 07/02/2015 11/18/2015 Inactive Premarin 0.3 mg tablet RxNorm: 469467 1 Tablet(s) PO daily 12/201505/09/2015 Inactive Premarin 0.3 mg tablet RxNorm: 591435 1 Tablet(s) PO daily 12/201503/17/2016 Inactive simvastatin 40 mg tablet RxNorm: 786424 1 Tablet(s) PO daily 03/17/2016 Inactive spironolactone 25 mg tablet RxNorm: 233959 TAKE ONE TABLET BY MOUTH DAILY 05/07/2015 05/27/2016 Inactive potassium chloride ER 10 mEq capsule,extended release RxNorm: 482875 1 Capsule(s) PO TIW as needed when taking lasix 04/17/2015 09/03/2015 Inactive alendronate 70 mg tablet RxNorm: 015969 1 Tablet(s) PO weekly QW 04/17/2015 07/01/2015 Inactive Vitamin D2 50,000 unit capsule RxNorm: 017358 1 Capsule(s) PO QW 03/30/2015 06/27/2015 Inactive Vitamin D2 50,000 unit capsule RxNorm: 530504 1 Capsule(s) PO QW 03/21/2015 03/29/2015 Inactive cyanocobalamin (vit B-12) 1,000 mcg/mL injection solution RxNorm: 803327 1 Milliliter(s) Inj monthly 03/19/201502/20 Inactive cyanocobalamin (vit B-12) 1,000 mcg/mL injection solution RxNorm: 272534 1 Milliliter(s) Inj monthly 03/16/201503/18 Inactive cyanocobalamin (vit B-12) 1,000 mcg/mL injection solution RxNorm: 470012 1 Milliliter(s) Inj monthly 03/16/201503/15 Inactive pantoprazole 40 mg tablet,delayed release RxNorm: 554389 1 Tablet(s) PO daily 03/05/2015 01/21/2016 Inactive Lasix 20 mg tablet RxNorm: 648585 1 Tablet(s) PO TIW as needed edema 02/08/2015 02/02/2016 Inactive oxycodone 10 mg tablet RxNorm: 3580367 1 Tablet(s) PO QID as needed take between 20mg dose if needed for extra pain control 11/09/2014 12/08/2014 Inactive oxycodone 20 mg tablet RxNorm: 4417546 1 Tablet(s) PO Q6 as needed 10/25/2014 11/06/2015 Inactive doxycycline hyclate 100 mg tablet RxNorm: 760152 1 Tablet(s) PO BID 10/23/2014 11/19/2014 Inactive Cipro 500 mg tablet RxNorm: 229467 1 Tablet(s) PO BID 201410/16/2014 Inactive Cipro 500 mg tablet RxNorm: 321528 1 Tablet(s) PO BID 201410/09/2014 Inactive oxycodone 20 mg tablet RxNorm: 1719096 1 Tablet(s) PO Q6 as needed 09/25/2014 10/24/2014 Inactive Lasix 20 mg tablet RxNorm: 539834 1 Tablet(s) PO TIW as needed edema 09/14/2014 01/11/2015 Inactive potassium chloride ER 10 mEq capsule,extended release RxNorm: 510619 1 Capsule(s) PO TIW as needed when taking lasix 09/14/2014 01/11/2015 Inactive doxycycline hyclate 100 mg tablet RxNorm: 467522 1 Tablet(s) PO BID 09/05/2014 09/14/2014 Inactive doxycycline hyclate 100 mg tablet RxNorm: 557012 1 Tablet(s) PO BID 09/05/2014 09/04/2014 Inactive oxycodone 20 mg tablet RxNorm: 8691531 1 Tablet(s) PO Q6 as needed 08/29/2014 09/24/2014 Inactive spironolactone 25 mg tablet RxNorm: 509214 1 Tablet(s) PO daily 08/11/2014 03/08/2015 Inactive oxycodone 20 mg tablet RxNorm: 1264877 1 Tablet(s) PO Q6 as needed 08/02/2014 08/28/2014 Inactive Vitamin D3 2,000 unit tablet RxNorm: 324877 1 Tablet(s) PO daily 07/14/2014 No Stop Date Active Vitamin D2 50,000 unit capsule RxNorm: 024946 1 Capsule(s) PO QW 07/14/2014 10/11/2014 Inactive Vitamin D2 50,000 unit capsule RxNorm: 798191 1 Capsule(s) PO QW 07/14/2014 07/13/2014 Inactive Prolia 60 mg/mL subcutaneous syringe RxNorm: 955816 Milliliter(s) SQ EVERY 6 MONTHS No Start Date Active Carafate 1 gram tablet RxNorm: 142812 1 Tablet(s) PO BID No Start Date Active Miralax oral RxNorm: 390806 oral No Start Date Active Stool Softener oral RxNorm: 28458 oral No Start Date Active Calcium + Vitamin D oral RxNorm: 4018 oral No Start Date Active naproxen 500 mg tablet RxNorm: 935780 1 Tablet(s) PO BID No Start Date 08/05/2015 Inactive albuterol sulfate 2.5 mg/3 mL (0.083 %) solution for nebulization RxNorm: 016221 3 Milliliter(s) INH Q4 PRN No Start Date 02/17/2018 Inactive oxycodone 20 mg tablet RxNorm: 0333454 1 Tablet(s) PO Q6 as needed No Start Date 08/01/2014 Inactive aspirin 81 mg tablet RxNorm: 056202 1 Tablet(s) PO daily No Start Date 07/22/2017 Inactive simvastatin 40 mg tablet RxNorm: 878932 1 Tablet(s) PO daily No Start Date 05/09/2015 Inactive cyanocobalamin (vit B-12) 1,000 mcg/mL injection syringe RxNorm: 029150 1 Inj monthly No Start Date 02/15/2017 Inactive Reglan 10 mg tablet RxNorm: 419368 1 Tablet(s) PO as needed No Start Date 07/29/2016 Inactive alendronate 70 mg tablet RxNorm: 664827 1 Tablet(s) PO weekly No Start Date 04/16/2015 Inactive Protonix 40 mg tablet,delayed release RxNorm: 247085 1 Tablet(s) PO daily No Start Date 03/04/2015 Inactive cyclobenzaprine 5 mg tablet RxNorm: 656332 1 Tablet(s) PO Q8 as needed muscle spasms No Start Date 09/10/2016 Inactive Vitamin D3 1,000 unit capsule RxNorm: 452034 1 Capsule(s) PO daily No Start Date 07/13/2014 Inactive Cardizem CD 360 mg capsule,extended release RxNorm: 340919 1 Capsule(s) PO daily No Start Date 01/04/2018 Inactive prednisone 10 mg tablets in a dose pack RxNorm: 055557 1 Tablet(s) PO UD No Start Date 09/08/2016 Inactive Medication Administered Medication Codes Instructions Start Date Status promethazine 25 mg/mL injection solution RxNorm: 078294 Milliliter 04/21/2018 No longer Active Kenalog 40 mg/mL suspension for injection RxNorm: 2353359 1Milliliter 08/31/2017 No longer Active Kenalog 40 mg/mL suspension for injection RxNorm: 1624253 2Milliliter 08/21/2017 No longer Active Kenalog 40 mg/mL suspension for injection RxNorm: 4937948 2MilliliterUD 08/12/2017 No longer Active Kenalog 40 mg/mL suspension for injection RxNorm: 2271341 2Milliliter 08/05/2017 No longer Active Kenalog 40 mg/mL suspension for injection RxNorm: 8128795 1.5Milliliter 04/02/2017 No longer Active Kenalog 40 mg/mL suspension for injection RxNorm: 0134279 1Milliliter 10/02/2016 No longer Active Kenalog 40 mg/mL suspension for injection RxNorm: 1938303 1Milliliter 09/12/2016 No longer Active Immunizations Vaccine Codes Date Status Influenza CVX: 141 12/03/2017 completed Influenza CVX: 141 12/08/2016 completed Influenza CVX: 141 11/19/2015 completed Influenza CVX: 141 01/10/2015 completed Pneumococcal (Adult) CVX: 133 12/11/2014 completed Pneumococcal (Adult) CVX: 133 12/11/2014 completed Assessments Condition Codes Effective Dates First degree hemorrhoids ICD-10: K64.0 ICD-9: 455.0 05/10/2018 Other specified diseases of anus and rectum ICD-10: K62.89 ICD-9: 569.42 05/10/2018 Slow transit constipation ICD-10: K59.01 ICD-9: 564.01 05/04/2018 Sciatica, right side ICD-10: M54.31 ICD-9: 724.3 05/04/2018 Chronic pain syndrome ICD-10: G89.4 ICD-9: 338.4 05/04/2018 Primary osteoarthritis, left shoulder ICD-10: M19.012 ICD-9: 715.91 05/04/2018 Primary osteoarthritis, 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 ICD-9: 715.91 05/04/2018 Diarrhea, unspecified ICD-10: R19.7 ICD-9: 787.91 04/21/2018 Other specified intestinal infections ICD-10: A08.8 ICD-9: 009.0 04/21/2018 Essential (primary) hypertension ICD-10: I10 ICD-9: 401.1 03/03/2018 Hypo-osmolality and hyponatremia ICD-10: E87.1 ICD-9: 276.1 [...] Visit Reason For Visit Effective Dates Notes melena 05/10/2018 pain 05/04/2018 nausea 04/21/2018 vomiting [...] Item Item Code Result Date Comp Metabolic Jxr226 NA 134 mEq/L 03/03/2018 Comp Metabolic Nbv922 K 3.3 mEq/L 03/03/2018 Comp Metabolic Zmy279 CL 90 mEq/L 03/03/2018 Comp Metabolic Alo303 CO2 33.0 mEq/L 03/03/2018 Comp Metabolic Lhe670 ANION GAP 14 03/03/2018 Comp Metabolic Vtz600 GLUCOSE 146 mg/dL 03/03/2018 Comp Metabolic Rog115 Creat 1.7 mg/dL 03/03/2018 Comp Metabolic Kpl135 eGFR 31 ml/min/1.73m2 03/03/2018 Comp Metabolic Ghl678 BUN 74 mg/dL 03/03/2018 Comp Metabolic Nyz469 B/C Ratio 43.8 Ratio 03/03/2018 Comp Metabolic Rla905 CALCIUM 8.6 mg/dL 03/03/2018 Comp Metabolic Kot735 ALK PHOS 70 U/L 03/03/2018 Comp Metabolic Aig074 AST(SGOT) 14 U/L 03/03/2018 Comp Metabolic Pjm916 ALT(SGPT) 9 U/L 03/03/2018 Comp Metabolic Kxs973 BILI T 0.6 mg/dL 03/03/2018 Comp Metabolic Shp000 ALBUMIN 3.8 g/dL 03/03/2018 Comp Metabolic Jnr407 TPRO 6.7 g/dL 03/03/2018 Comp Metabolic Xyk754 GLOB 2.9 g/dL 03/03/2018 Comp Metabolic Nty215 A/G Ratio 1.3 Ratio 03/03/2018 Comp Metabolic Plg163 Osmo 293 mOsmo 03/03/2018 Cbc With Differential [...] 29.9 pg 03/03/2018 Cbc With Differential Ord2 [place]% 11.1 % 03/03/2018 Cbc With Differential Ord2 [...] 1.38 K/ul 03/03/2018 Cbc With Differential Ord2 [place] ABS# 0.9 K/ul 03/03/2018 Cbc With Differential Ord2 Eos ABS# 0.0 K/ul 03/03/2018 Cbc With Differential Ord2 Baso ABS# 0.1 K/ul 03/03/2018 Tibc Ord40 Iron 75 ug/dl 10/22/2017 Tibc Ord40 UIBC 270 ug/dL 10/22/2017 Tibc Ord40 TIBC 345 ug/dL 10/22/2017 Tibc Ord40 Fe-%Sat 21.7 % 10/22/2017 Prealbumin 586982 PREALBUMIN 33 mg/dL 10/21/2017 Comp Metabolic Yrw720 NA 134 mEq/L 10/20/2017 Comp Metabolic Ybo642 K 3.7 mEq/L 10/20/2017 Comp Metabolic Chj916 CL 93 mEq/L 10/20/2017 Comp Metabolic Puv273 CO2 29.0 mEq/L 10/20/2017 Comp Metabolic Rik322 ANION GAP 16 10/20/2017 Comp Metabolic Tay767 GLUCOSE 115 mg/dL 10/20/2017 Comp Metabolic Ces423 Creat 0.8 mg/dL 10/20/2017 Comp Metabolic Ohu058 eGFR 73 ml/min/1.73m2 10/20/2017 Comp Metabolic Psu706 BUN 46 mg/dL 10/20/2017 Comp Metabolic Fbo521 B/C Ratio 57.5 Ratio 10/20/2017 Comp Metabolic Cnw202 CALCIUM 8.7 mg/dL 10/20/2017 Comp Metabolic Cag716 ALK PHOS 56 U/L 10/20/2017 Comp Metabolic Gez853 AST(SGOT) 19 U/L 10/20/2017 Comp Metabolic Vol445 ALT(SGPT) 23 U/L 10/20/2017 Comp Metabolic Aql500 BILI T 0.6 mg/dL 10/20/2017 Comp Metabolic Rzk006 ALBUMIN 4.0 g/dL 10/20/2017 Comp Metabolic Wsc925 TPRO 6.6 g/dL 10/20/2017 Comp Metabolic Nic448 GLOB 2.7 g/dL 10/20/2017 Comp Metabolic Vkv519 A/G Ratio 1.5 Ratio 10/20/2017 Comp Metabolic Sdd836 Osmo 281 mOsmo 10/20/2017 Tsh Ord6 TSH [...] 35.4 pg 10/20/2017 Cbc With Differential Ord2 [place]% 9.9 % 10/20/2017 Cbc With Differential Ord2 [...] 1.15 K/ul 10/20/2017 Cbc With Differential Ord2 [place] ABS# 0.6 K/ul 10/20/2017 Cbc With Differential Ord2 Eos ABS# 0.0 K/ul 10/20/2017 Cbc With Differential Ord2 Baso ABS# 0.0 K/ul 10/20/2017 Iron Ord72 Iron 75 ug/dl 10/20/2017 Romie Reflex Profile [id number] ROMIE (BRYANNA) SCREEN NONE DETECTED 01/12/2017 Comp Metabolic Tbr739 NA 129 mEq/L 01/08/2017 Comp Metabolic Suc484 K 3.9 mEq/L 01/08/2017 Comp Metabolic Oap186 CL 94 mEq/L 01/08/2017 Comp Metabolic Hpf881 CO2 31.0 mEq/L 01/08/2017 Comp Metabolic Cmr136 ANION GAP 8 01/08/2017 Comp Metabolic Pbw837 GLUCOSE 103 mg/dL 01/08/2017 Comp Metabolic Qtk759 Creat 0.9 mg/dL 01/08/2017 Comp Metabolic Lgs510 eGFR 61 ml/min/1.73m2 01/08/2017 Comp Metabolic Apy879 BUN 29 mg/dL 01/08/2017 Comp Metabolic Rzb753 B/C Ratio 30.9 Ratio 01/08/2017 Comp Metabolic Vhl058 CALCIUM 8.5 mg/dL 01/08/2017 Comp Metabolic Zvr279 ALK PHOS 58 U/L 01/08/2017 Comp Metabolic Gko874 AST(SGOT) 17 U/L 01/08/2017 Comp Metabolic Utj151 ALT(SGPT) 10 U/L 01/08/2017 Comp Metabolic Nip105 BILI T 0.4 mg/dL 01/08/2017 Comp Metabolic Nfg933 ALBUMIN 3.0 g/dL 01/08/2017 Comp Metabolic Puv331 TPRO 5.5 g/dL 01/08/2017 Comp Metabolic Ara812 GLOB 2.5 g/dL 01/08/2017 Comp Metabolic Jwa773 A/G Ratio 1.2 Ratio 01/08/2017 Comp Metabolic Pxg563 Osmo 265 mOsmo 01/08/2017 Cbc With Differential [...] 33.8 pg 01/08/2017 Cbc With Differential Ord2 [place]% 12.2 % 01/08/2017 Cbc With Differential Ord2 [...] 1.62 K/ul 01/08/2017 Cbc With Differential Ord2 [place] ABS# 0.9 K/ul 01/08/2017 Cbc With Differential [...] 33.1 pg 11/10/2016 Cbc With Differential Ord2 [place]% 9.1 % 11/10/2016 Cbc With Differential Ord2 [...] 0.78 K/ul 11/10/2016 Cbc With Differential Ord2 [place] ABS# 0.5 K/ul 11/10/2016 Cbc With Differential [...] 30.3 pg 10/07/2016 Cbc With Differential Ord2 [place]% 11.8 % 10/07/2016 Cbc With Differential Ord2 [...] 1.54 K/ul 10/07/2016 Cbc With Differential Ord2 [place] ABS# 1.0 K/ul 10/07/2016 Cbc With Differential Ord2 Eos ABS# 0.1 K/ul 10/07/2016 Cbc With Differential Ord2 Baso ABS# 0.0 K/ul 10/07/2016 Comp Metabolic Duc469 NA 129 mEq/L 08/26/2016 Comp Metabolic Pzz044 K 3.9 mEq/L 08/26/2016 Comp Metabolic Sku671 CL 93 mEq/L 08/26/2016 Comp Metabolic Oyw259 CO2 30.0 mEq/L 08/26/2016 Comp Metabolic Yix322 ANION GAP 10 08/26/2016 Comp Metabolic Bzd079 GLUCOSE 87 mg/dL 08/26/2016 Comp Metabolic Ziz609 Creat 0.6 mg/dL 08/26/2016 Comp Metabolic Dyf278 eGFR 96 ml/min/1.73m2 08/26/2016 Comp Metabolic Bfe324 BUN 17 mg/dL 08/26/2016 Comp Metabolic Kfh396 B/C Ratio 27.0 Ratio 08/26/2016 Comp Metabolic Qnf818 CALCIUM 7.6 mg/dL 08/26/2016 Comp Metabolic Buz070 ALK PHOS 72 U/L 08/26/2016 Comp Metabolic Rga213 AST(SGOT) 20 U/L 08/26/2016 Comp Metabolic Twk627 ALT(SGPT) 12 U/L 08/26/2016 Comp Metabolic Prv448 BILI T 0.3 mg/dL 08/26/2016 Comp Metabolic Ghz419 ALBUMIN 2.7 g/dL 08/26/2016 Comp Metabolic Nkb936 TPRO 5.3 g/dL 08/26/2016 Comp Metabolic Slh579 GLOB 2.6 g/dL 08/26/2016 Comp Metabolic Hoc042 A/G Ratio 1.1 Ratio 08/26/2016 Comp Metabolic Zhi651 Osmo 260 mOsmo 08/26/2016 Cbc With Differential [...] 28.3 pg 08/26/2016 Cbc With Differential Ord2 [place]% 9.6 % 08/26/2016 Cbc With Differential Ord2 [...] 1.83 K/ul 08/26/2016 Cbc With Differential Ord2 [place] ABS# 1.0 K/ul 08/26/2016 Cbc With Differential Ord2 Eos ABS# 0.1 K/ul 08/26/2016 Cbc With Differential Ord2 Baso ABS# 0.0 K/ul 08/26/2016 Magnesium Ord90 Mag 1.9 mg/dL 08/26/2016 Vitamin D 25 Oh Ymr1238 VITAMIN D, 25 HYDROXY 34.59 ng/mL Tibc Ord40 Iron 13 ug/dl 08/26/2016 Tibc Ord40 UIBC 283 ug/dL 08/26/2016 Tibc Ord40 TIBC 296 ug/dL 08/26/2016 Tibc Ord40 Fe-%Sat 4.4 % 08/26/2016 Ferritin Ord22 FERRITIN 28.8 ng/mL 08/26/2016 Sed Rate Ord21 ESR 20 mm/hr 11/19/2015 Comp Metabolic Mcn426 NA 131 mEq/L 08/22/2015 Comp Metabolic Rem194 K 4.2 mEq/L 08/22/2015 Comp Metabolic Ulj183 CL 98 mEq/L 08/22/2015 Comp Metabolic Vkl637 CO2 27.0 mEq/L 08/22/2015 Comp Metabolic Fwf959 ANION GAP 10 08/22/2015 Comp Metabolic Baq684 GLUCOSE 80 mg/dL 08/22/2015 Comp Metabolic Jvm891 Creat 0.5 mg/dL 08/22/2015 Comp Metabolic Tuw491 eGFR 120 ml/min/1.73m2 08/22/2015 Comp Metabolic Aqs138 BUN 13 mg/dL 08/22/2015 Comp Metabolic Aya593 B/C Ratio 25.0 Ratio 08/22/2015 Comp Metabolic Xsn660 CALCIUM 8.2 mg/dL 08/22/2015 Comp Metabolic Skn842 ALK PHOS 49 U/L 08/22/2015 Comp Metabolic Tkk628 AST(SGOT) 18 U/L 08/22/2015 Comp Metabolic Oix060 ALT(SGPT) 11 U/L 08/22/2015 Comp Metabolic Ryg899 BILI T 0.5 mg/dL 08/22/2015 Comp Metabolic Jhg992 ALBUMIN 3.5 g/dL 08/22/2015 Comp Metabolic Kkh438 TPRO 6.2 g/dL 08/22/2015 Comp Metabolic Tjm416 GLOB 2.7 g/dL 08/22/2015 Comp Metabolic Vaz311 A/G Ratio 1.3 Ratio 08/22/2015 Comp Metabolic Ras821 Osmo 262 mOsmo 08/22/2015 Cbc With Differential [...] 32.4 pg 08/22/2015 Cbc With Differential Ord2 [place]% 10.3 % 08/22/2015 Cbc With Differential Ord2 [...] 1.39 K/ul 08/22/2015 Cbc With Differential Ord2 [place] ABS# 0.7 K/ul 08/22/2015 Cbc With Differential Ord2 Eos ABS# 0.1 K/ul 08/22/2015 Cbc With Differential Ord2 Baso ABS# 0.0 K/ul 08/22/2015 Tsh Ord6 hTSH II 2.19 uIU/mL 08/22/2015 Vitamin D 25 Oh Rfx3140 VITAMIN D, 25 HYDROXY 55.10 ng/mL Lipid [...] 1.5 Ratio 03/16/2015 Vitamin D 25 Oh Gjk9366 VITAMIN D, 25 HYDROXY 28.94 ng/mL Cbc [...] 28.1 pg 03/16/2015 Cbc With Differential Ord2 [place]% 11.2 % 03/16/2015 Cbc With Differential Ord2 [...] 2.37 K/ul 03/16/2015 Cbc With Differential Ord2 [place] ABS# 0.8 K/ul 03/16/2015 Cbc With Differential Ord2 Eos ABS# 0.1 K/ul 03/16/2015 Cbc With Differential Ord2 Baso ABS# 0.0 K/ul 03/16/2015 Cbc With Differential Ord2 New Analyzer Notice Please note new ref ranges starting 03-14-2015 due to implemntation of new five part differential hematolgy analyzer. 03/16/2015 Comp Metabolic Fpo515 NA 131 mEq/L 03/16/2015 Comp Metabolic Vry593 K 4.1 mEq/L 03/16/2015 Comp Metabolic Dmt547 CL 94 mEq/L 03/16/2015 Comp Metabolic Sck930 CO2 28.0 mEq/L 03/16/2015 Comp Metabolic Wlc931 ANION GAP 13 03/16/2015 Comp Metabolic Wzx351 GLUCOSE 96 mg/dL 03/16/2015 Comp Metabolic Ugb165 Creat 0.7 mg/dL 03/16/2015 Comp Metabolic Gel453 eGFR 80 ml/min/1.73m2 03/16/2015 Comp Metabolic Ims304 BUN 16 mg/dL 03/16/2015 Comp Metabolic Qri535 B/C Ratio 21.6 Ratio 03/16/2015 Comp Metabolic Zft216 CALCIUM 8.9 mg/dL 03/16/2015 Comp Metabolic Cco579 ALK PHOS 44 U/L 03/16/2015 Comp Metabolic Pqb334 AST(SGOT) 22 U/L 03/16/2015 Comp Metabolic Jpd093 ALT(SGPT) 14 U/L 03/16/2015 Comp Metabolic Cdn679 BILI T 0.5 mg/dL 03/16/2015 Comp Metabolic Akl993 ALBUMIN 3.4 g/dL 03/16/2015 Comp Metabolic Sjx459 TPRO 6.0 g/dL 03/16/2015 Comp Metabolic Hcn837 GLOB 2.6 g/dL 03/16/2015 Comp Metabolic Hub238 A/G Ratio 1.3 Ratio 03/16/2015 Comp Metabolic Ish362 Osmo 264 mOsmo 03/16/2015 Comp Metabolic Ylk368 NA 129 mEq/L 11/09/2014 Comp Metabolic Phi640 K 4.2 mEq/L 11/09/2014 Comp Metabolic Cii168 CL 96 mEq/L 11/09/2014 Comp Metabolic Doj282 CO2 27.0 mEq/L 11/09/2014 Comp Metabolic Oqo994 ANION GAP 10 11/09/2014 Comp Metabolic Xjx078 GLUCOSE 144 mg/dL 11/09/2014 Comp Metabolic Oft469 Creat 0.8 mg/dL 11/09/2014 Comp Metabolic Vxu510 eGFR 73 ml/min/1.73m2 11/09/2014 Comp Metabolic Ksh077 BUN 22 mg/dL 11/09/2014 Comp Metabolic Fci960 B/C Ratio 27.5 Ratio 11/09/2014 Comp Metabolic Inf692 CALCIUM 8.6 mg/dL 11/09/2014 Comp Metabolic Gda772 ALK PHOS 55 U/L 11/09/2014 Comp Metabolic Uzm969 AST(SGOT) 27 U/L 11/09/2014 Comp Metabolic Wqe554 ALT(SGPT) 18 U/L 11/09/2014 Comp Metabolic Deb159 BILI T 0.5 mg/dL 11/09/2014 Comp Metabolic Xsn042 ALBUMIN 3.0 g/dL 11/09/2014 Comp Metabolic Bzi623 TPRO 5.4 g/dL 11/09/2014 Comp Metabolic Qxt838 GLOB 2.4 g/dL 11/09/2014 Comp Metabolic Bbe051 A/G Ratio 1.3 Ratio 11/09/2014 Comp Metabolic Knt491 Osmo 265 mOsmo 11/09/2014 Magnesium Ord90 Mag 1.8 mg/dL 11/09/2014 Review of Systems System Result Effective Dates Constitutional No recent illness 2018 Constitutional fatigue [...] hygiene 03/03/2018 None Full Exam - General 1994 Eyes conjunctiva /eyelids Overall: conjunctiva clear 03/03/2018 [...] clear 03/03/2018 None Full Exam - General 1995 Ears/Nose/Throat [...] bilateral 11/27/2017 None Full Exam - General 1995 Cardiovascular auscultation of heart Rate: tachycardia 11/27/2017 [...] normal 2015 None Full Exam - General 1995 Ears/Nose/Throat lips/teeth/gingiva Overall: benign lips 2015 None [...] Procedure Codes Date THER/PROPH/DIAG INJ SC/IM CPT-4: 21671 04/21/2018 PROMETHAZINE HCL INJECTION CPT-4: J2550 04/21/2018 DRAIN/INJECT JOINT/BURSA CPT-4: 69267 08/21/2017 DRAIN/INJECT JOINT/BURSA CPT-4: 15770 08/12/2017 TRIAMCINOLONE ACET INJ NOS CPT-4: J3301 08/12/2017 DRAIN/INJECT JOINT/BURSA CPT-4: 55768 08/05/2017 TRIAMCINOLONE ACET INJ NOS CPT-4: J3301 08/05/2017 DRAIN/INJECT JOINT/BURSA CPT-4: 75837 07/23/2017 DRAIN/INJECT JOINT/BURSA CPT-4: 72336 07/09/2017 TRIAMCINOLONE ACET INJ NOS CPT-4: J3301 07/09/2017 PRESCRIP TRANSMIT VIA ERX SY CPT-4: G8553 07/09/2017 DRAIN/INJECT JOINT/BURSA CPT-4: 91322 07/01/2017 TRIAMCINOLONE ACET INJ NOS CPT-4: J3301 07/01/2017 PRESCRIP TRANSMIT VIA ERX SY CPT-4: G8553 07/01/2017 DRAIN/INJECT JOINT/BURSA CPT-4: 83178 06/17/2017 DRAIN/INJECT JOINT/BURSA CPT-4: 60280 04/02/2017 TRIAMCINOLONE ACET INJ NOS CPT-4: J3301 04/02/2017 DRAIN/INJECT JOINT/BURSA CPT-4: 19486 02/06/2017 ADMIN INFLUENZA VIRUS VAC CPT-4: G0008 12/08/2016 FLU VACC PRSV FREE INC ANTIG CPT-4: 75329 12/08/2016 PRESCRIP TRANSMIT VIA ERX SY CPT-4: G8553 12/08/2016 PRESCRIP TRANSMIT VIA ERX SY CPT-4: G8553 11/17/2016 TRIAMCINOLONE ACET INJ NOS CPT-4: J3301 10/02/2016 TRIAMCINOLONE ACET INJ NOS CPT-4: J3301 09/12/2016 DRAIN/INJECT JOINT/BURSA CPT-4: 79009 09/08/2016 TRIAMCINOLONE ACET INJ NOS CPT-4: J3301 09/08/2016 PRESCRIP TRANSMIT VIA ERX SY CPT-4: G8553 08/26/2016 PRESCRIP TRANSMIT VIA ERX SY CPT-4: G8553 08/18/2016 ADMIN INFLUENZA VIRUS VAC CPT-4: G0008 11/19/2015 FLU VACC PRSV FREE INC ANTIG Formatting Model/CDA Sections, Assigned to/Luanne Elaine CPT-4: 99194Bfpaxuz 11/19/2015 PRESCRIP TRANSMIT VIA ERX SY CPT-4: G8553 09/04/2015 PRESCRIP TRANSMIT VIA ERX SY CPT-4: G8553 2015 PRESCRIP TRANSMIT VIA ERX SY CPT-4: G8553 07/18/2015 PRESCRIP TRANSMIT VIA ERX SY CPT-4: G8553 07/02/2015 REMOVE IMPACTED EAR WAX UNI CPT-4: 21115 04/09/2015 PRESCRIP TRANSMIT VIA ERX SY CPT-4: G8553 02/08/2015 ADMIN INFLUENZA VIRUS VAC CPT-4: G0008 01/10/2015 FLU VACC PRSV FREE INC ANTIG Formatting Model/CDA Sections, Assigned to/Luanne Elaine CPT-4: 11096Wjzyqkx 01/10/2015 ADMIN PNEUMOCOCCAL VACCINE Formatting Model/CDA Sections, Assigned to SNOMED CT: [id number] CPT-4: V0994Lbkbaem 12/11/2014 PNEUMOCOCCAL VACC [address]: [id number] CPT-4: 27137 12/11/2014 Vital Signs Date Vital 05/10/2018 Blood Pressure 1: 128/76 Code : [...] Code : 8480-6 BMI: 23.5 Code : 36738-7 Heart Rate 1 : 58 bpm Height: 5'8" SpO2: 96% Weight: 152 lbs 11/30/2017 Blood Pressure 1: 122/70 Code : 8480-6 Heart Rate 1: 105 bpm Height: 5'8" SpO2: 98% Weight: 11/27/2017 Blood Pressure 1: 148/76 Code : 8480-6 Heart Rate 1: 72 bpm Height: 5'8" SpO2: 99% Weight: 11/10/2017 Blood Pressure 1: 130/76 Code : 8480-6 BMI: 27.3 Code : 03144-8 Heart Rate 1 : 98 bpm Height: [...] Code : 8480-6 BMI: 24.7 Code : 69905-4 Heart Rate 1 : 100 bpm Height: 5'8" SpO2: 95% Weight: 160 lbs 08/31/2017 Blood Pressure 1: 128/78 Code : 8480-6 BMI: 23.6 Code : 98271-3 Heart Rate 1 : 102 bpm Height: 5'8" SpO2: 96% Weight: 153 lbs 08/21/2017 Blood Pressure 1: 138/78 Code : 8480-6 Heart Rate 1: 97 bpm SpO2: 95% Weight: 156 lbs 2 oz 08/12/2017 Blood Pressure 1: 138/74 Code : 8480-6 BMI: 25.0 Code : 53243-9 Heart Rate 1 : 94 bpm Height: 5'8" SpO2: 98% Weight: 162 lbs 08/05/2017 Blood Pressure 1: 126/78 Code : 8480-6 BMI: 25.8 Code : 49454-4 Heart Rate 1 : 74 bpm Height: 5'8" SpO2: 96% Weight: 167 lbs 07/23/2017 Blood Pressure 1: 106/64 Code : 8480-6 BMI: 25.3 Code : 73184-6 Heart Rate 1 : 81 bpm Height: 5'8" SpO2: 99% Weight: 163 lbs 14 oz 07/09/2017 Blood Pressure 1: 130/68 Code : 8480-6 Heart Rate 1: 82 bpm Height: 5'8" SpO2: 98% Weight: 07/01/2017 Blood Pressure 1: 124/76 Code : 8480-6 BMI: 26.5 Code : 96777-7 Heart Rate 1 : 99 bpm Height: 5'8" SpO2: 98% Weight: 172 lbs 06/24/2017 Blood Pressure 1: 118/70 Code : 8480-6 Heart Rate 1: 103 bpm Height: 5'8" SpO2: 98% Weight: 06/17/2017 Blood Pressure 1: 110/64 Code : 8480-6 BMI: 25.0 Code : 36743-1 Heart Rate 1 : 73 bpm Height: 5'8" Weight: 162 lbs 06/01/2017 Blood Pressure 1: 158/84 Code : 8480-6 BMI: 24.4 Code : 45787-4 Heart Rate 1 : 94 bpm Height: 5'8" SpO2: 95% Weight: 158 lbs 04/02/2017 Blood Pressure 1: 164/80 Code : 8480-6 BMI: 23.1 Code : 46236-1 Heart Rate 1 : 76 bpm Height: 5'8" SpO2: 94% Weight: 150 lbs 03/12/2017 Blood Pressure 1: 130/74 Code : 8480-6 BMI: 23.0 Code : 93877-4 Heart Rate 1 : 92 bpm Height: 5'8" SpO2: 94% Weight: 149 lbs 02/06/2017 Height: Weight: 01/08/2017 Blood Pressure 1: 136/76 Code : 8480-6 BMI: 21.4 Code : 71939-4 Heart Rate 1 : 85 bpm Height: 5'8" SpO2: 98% Weight: 138 lbs 8 oz 12/08/2016 Blood Pressure 1: 132/66 Code : 8480-6 BMI: 22.2 Code : 95384-5 Heart Rate 1 : 106 bpm Height: 5'8" SpO2: 97% Weight: 144 lbs 11/17/2016 Blood Pressure 1: 146/80 Code : 8480-6 BMI: 22.4 Code : 48477-3 Heart Rate 1 : 100 bpm Height: 5'8" SpO2: 98% Weight: 145 lbs 11/10/2016 Blood Pressure 1: 122/62 Code : 8480-6 BMI: 22.2 Code : 00849-5 Height: 5'8" Weight: 144 lbs 11/05/2016 Blood Pressure 1: 146/80 Code : 8480-6 BMI: 22.2 Code : 25521-2 Heart Rate 1 : 77 bpm Height: 5'8" SpO2: 99% Weight: 144 lbs 10/07/2016 Blood Pressure 1: 132/68 Code : 8480-6 BMI: 22.8 Code : 83943-5 Heart Rate 1 : 90 bpm Height: 5'8" SpO2: 97% Weight: 148 lbs 10/02/2016 Blood Pressure 1: 166/86 Code : 8480-6 BMI: 22.8 Code : 18001-1 Heart Rate 1 : 96 bpm Height: 5'8" SpO2: 96% Weight: 148 lbs 09/12/2016 Blood Pressure 1: 130/86 Code : 8480-6 Height: Weight: 09/08/2016 Blood Pressure 1: 132/74 Code : 8480-6 BMI: 22.4 Code : 64485-2 Heart Rate 1 : 93 bpm Height: 5'8" SpO2: 99% Weight: 145 lbs 08/26/2016 Blood Pressure 1: 132/78 Code : 8480-6 BMI: 23.9 Code : 87886-5 Heart Rate 1 : 80 bpm Height: 5'8" SpO2: 94% Weight: 155 lbs 08/18/2016 Blood Pressure 1: 130/70 Code : 8480-6 BMI: 23.6 Code : 17781-5 Heart Rate 1 : 100 bpm Height: 5'8" SpO2: 94% Weight: 153 lbs 07/30/2016 Blood Pressure 1: 144/84 Code : 8480-6 BMI: 22.4 Code : 77018-9 Heart Rate 1 : 86 bpm Height: 5'8" SpO2: 97% Weight: 145 lbs 07/14/2016 Blood Pressure 1: 122/74 Code : 8480-6 BMI: 22.5 Code : 93227-3 Heart Rate 1 : 87 bpm Height: 5'8" SpO2: 97% Weight: 146 lbs 07/04/2016 Blood Pressure 1: 128/78 Code : 8480-6 BMI: 22.5 Code : 28287-5 Heart Rate 1 : 98 bpm Height: 5'8" Weight: 146 lbs 06/26/2016 Blood Pressure 1: 122/68 Code : 8480-6 BMI: 22.5 Code : 99950-5 Heart Rate 1 : 102 bpm Height: 5'8" SpO2: 98% Weight: 146 lbs 05/28/2016 Blood Pressure 1: 122/68 Code : 8480-6 BMI: 22.4 Code : 39475-0 Heart Rate 1 : 89 bpm Height: 5'8" SpO2: 97% Weight: 145 lbs 03/18/2016 Blood Pressure 1: 132/66 Code : 8480-6 BMI: 22.8 Code : 45369-7 Heart Rate 1 : 96 bpm Height: 5'8" SpO2: 98% Weight: 148 lbs 01/29/2016 Blood Pressure 1: 122/66 Code : 8480-6 BMI: 22.2 Code : 09955-1 Heart Rate 1 : 90 bpm Height: 5'8" SpO2: 99% Weight: 144 lbs 01/01/2016 Blood Pressure 1: 148/82 Code : 8480-6 BMI: 22.5 Code : 81123-4 Heart Rate 1 : 82 bpm Height: 5'8" Weight: 146 lbs 11/19/2015 Blood Pressure 1: 140/74 Code : 8480-6 BMI: 23.7 Code : 91715-8 Heart Rate 1 : 79 bpm Height: 5'8" SpO2: 96% Weight: 153 lbs 8 oz 11/01/2015 Blood Pressure 1: 118/72 Code : 8480-6 Heart Rate 1: 90 bpm Height: 5'8" SpO2: 95% 09/04/2015 Blood Pressure 1: 136/72 Code : 8480-6 BMI: 23.1 Code : 06014-1 Heart Rate 1 : 97 bpm Height: 5'8" SpO2: 98% Weight: 149 lbs 8 oz 2015 Blood Pressure 1: 144/76 Code : 8480-6 BMI: 22.8 Code : 07437-8 Heart Rate 1 : 75 bpm Height: 5'8" SpO2: 97% Weight: 148 lbs 07/18/2015 Blood Pressure 1: 132/60 Code : 8480-6 BMI: 23.1 Code : 21606-9 Heart Rate 1 : 78 bpm Height: 5'8" Weight: 150 lbs 07/02/2015 Blood Pressure 1: 156/86 Code : 8480-6 BMI: 23.0 Code : 35921-9 Heart Rate 1 : 75 bpm Height: 5'8" SpO2: 99% Weight: 149 lbs 05/31/2015 Blood Pressure 1: 136/72 Code : 8480-6 BMI: 22.7 Code : 21055-2 Heart Rate 1 : 85 bpm Height: 5'8" SpO2: 97% Weight: 147 lbs 04/09/2015 Blood Pressure 1: 118/60 Code : 8480-6 BMI: 22.7 Code : 93833-3 Heart Rate 1 : 72 bpm Height: 5'8" SpO2: 95% Weight: 147 lbs 02/08/2015 Blood Pressure 1: 138/76 Code : 8480-6 BMI: 23.1 Code : 20609-8 Heart Rate 1 : 80 bpm Height: 5'8" SpO2: 98% Weight: 150 lbs 12/11/2014 Blood Pressure 1: 120/74 Code : 8480-6 BMI: 22.1 Code : 93026-1 Heart Rate 1 : 92 bpm Height: 5'8" SpO2: 96% Weight: 143 lbs 11/09/2014 Blood Pressure 1: 100/64 Code : 8480-6 BMI: 21.6 Code : 18626-6 Heart Rate 1 : 88 bpm Height: 5'8" Weight: 140 lbs 10/23/2014 Blood Pressure 1: 138/82 Code : 8480-6 BMI: 23.6 Code : 01499-1 Heart Rate 1 : 86 bpm Height: 5'8" Weight: 153 lbs 10/16/2014 Blood Pressure 1: 128/60 Code : 8480-6 BMI: 23.3 Code : 60027-3 Heart Rate 1 : 91 bpm Height: 5'8" SpO2: 99% Weight: 151 lbs 10/09/2014 Blood Pressure 1: 120/60 Code : 8480-6 BMI: 23.0 Code : 18778-1 Heart Rate 1 : 96 bpm Height: 5'8" SpO2: 97% Weight: 149 lbs 09/14/2014 Blood Pressure 1: 132/72 Code : 8480-6 BMI: 22.1 Code : 89991-1 Heart Rate 1 : 84 bpm Height: 5'8" SpO2: 97% Weight: 143 lbs 08/11/2014 Blood Pressure 1: 134/74 Code : 8480-6 BMI: 24.1 Code : 93086-0 Heart Rate 1 : 88 bpm Height: 5'8" Weight: 156 lbs 07/12/2014 Blood Pressure 1: 122/62 Code : 8480-6 BMI: 22.7 Code : 32835-6 Heart Rate 1 : 76 bpm Height: 5'8" Weight: 147 lbs Functional Status No Functional Status data History of Present Illness Symptom Name Status Result Effective Date Notes Quality intermittent 05/10/2018 None Onset of Symptom [...] Dr. Bl[place] in [place] and Neurosurgeon in [place] in the past neck pain Significant Medical Conditions spinal stenosis 07/12/2014 has osteoarthritis Advance Directives No Advance Directive data Encounters Encounter Performer Location Codes Date EST. PATIENT, LEVEL III Diagnosis: First degree hemorrhoids[ICD10: K64.0] Diagnosis: Other specified diseases of anus and rectum[ICD10: K62.89] Araceli Silva MD , [facility] CPT-4: 79889 05/10/2018 ([id number]) 88889 EST. 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 PATIENT, LEVEL III Diagnosis: Other specified intestinal infections[ICD10: A08.8] Diagnosis: Diarrhea, unspecified[ICD10: R19.7] Maricel Silva MD, [facility] CPT-4: 45246 04/21/2018 [id number]) [id number] EST. PATIENT, LEVEL IV Diagnosis: Essential (primary) hypertension[ICD10: I10] Diagnosis: Hypo-osmolality and hyponatremia[ICD10: E87.1] Diagnosis: Chronic pain syndrome[ICD10: G89.4] Araceli Silva MD, [facility] CPT-4: 98136 03/03/2018 ([id number]) [id number] EST. PATIENT, LEVEL III Diagnosis: Cough[ICD10: R05] Diagnosis: Acute bronchitis, unspecified[ICD10: J20.9] Diagnosis: Chronic obstructive pulmonary disease, unspecified[ICD10: J44.9] Ila Silva MD, [facility] CPT-4: 47138 02/12/2018 ([id number]) 76770 EST. PATIENT, LEVEL IV Diagnosis: Chronic pain syndrome[ICD10: G89.4] Diagnosis: Cough[ICD10: R05] Diagnosis: Diarrhea, unspecified[ICD10: R19.7] Diagnosis: Generalized edema[ICD10: R60.1] Ila Silva MD, [facility] CPT-4: 20698 02/09/2018 ([id number]) 58078 EST. PATIENT, LEVEL III Diagnosis: Generalized edema[ICD10: R60.1] Diagnosis: Lymphedema, not elsewhere classified[ICD10: I89.0] Araceli Silva MD, [facility] CPT-4: 74534 01/14/2018 ([id number]) 81950 EST. PATIENT, LEVEL IV Diagnosis: Essential (primary) hypertension[ICD10: I10] Diagnosis: Generalized edema[ICD10: R60.1] Diagnosis: Chronic pain syndrome[ICD10: G89.4] Araceli Silva MD, [facility] CPT-4: 67301 12/24/2017 ([id number]) 48440 EST. PATIENT, LEVEL III Diagnosis: Lymphedema, not elsewhere classified[ICD10: I89.0] Araceli Silva MD, [facility] CPT-4: 09833 11/30/2017 ([id number]) 11125 EST. PATIENT, LEVEL III Diagnosis: Generalized edema[ICD10: R60.1] Ila Silva MD, [facility] CPT-4: 21313 11/27/2017 ([id number]) 31514 EST. PATIENT, LEVEL IV Diagnosis: Localized edema[ICD10: [...] M25.512] Araceli Silva MD, [facility] CPT-4: 00285 11/10/2017 ([id number]) 95214 EST. PATIENT, LEVEL IV Diagnosis: Localized edema[ICD10: [...] M25.512] Araceli Silva MD, [facility] CPT-4: 65778 10/29/2017 ([id number]) 03214 EST. PATIENT, LEVEL IV Diagnosis: Essential (primary) [...] Araceli Silva MD, [facility] CPT- 4: 90551 10/20/2017 ([id number]) 18487 EST. PATIENT, LEVEL IV Diagnosis: Essential (primary) [...] M25.512] Araceli Silva MD, [facility] CPT-4: 32231 09/29/2017 ([id number]) 52173 EST. PATIENT, LEVEL IV Diagnosis: Primary osteoarthritis, left shoulder[ICD10: M19.012] Diagnosis: Pain in left shoulder[ICD10: M25.512] Diagnosis: Lymphedema, not elsewhere classified[ICD10: I89.0] Diagnosis: Localized edema[ICD10: R60.0] Diagnosis: Chronic atrial fibrillation[ICD10: I48.2] Araceli Silva MD, [facility] CPT-4: 63018 09/15/2017 ([id number]) 49248 EST. 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 PATIENT, LEVEL III Diagnosis: Localized edema[ICD10: R60.0] Araceli Silva MD [facility] CPT- 4: 75950 07/23/2017 ([id number]) 99359 EST. PATIENT, LEVEL III Diagnosis: Rheumatoid arthritis without rheumatoid factor, left shoulder[ICD10: M06.012] Diagnosis: Hemarthrosis, left shoulder[ICD10: M25.012] Araceli Silva MD [facility] CPT-4: 69219 07/09/2017 ([id number]) 82504 EST. PATIENT, LEVEL III Diagnosis: Chronic pain syndrome[ICD10: G89.4] Diagnosis: Rheumatoid arthritis without rheumatoid factor, left shoulder[ICD10: M06.012] Diagnosis: Hemarthrosis, left shoulder[ICD10: M25.012] Diagnosis: Lymphedema, not elsewhere classified[ICD10: I89.0] Araceli Silva MD [facility] CPT-4: 57370 07/01/2017 ([id number]) 78295 EST. PATIENT, LEVEL III Diagnosis: Chronic pain syndrome[ICD10: G89.4] Araceli Silva MD [facility] CPT-4: 47414 06/24/2017 ([id number]) 06522 EST. PATIENT, LEVEL IV Diagnosis: Rheumatoid arthritis without rheumatoid factor, right shoulder[ICD10 : M06.011] Diagnosis: Rheumatoid arthritis without rheumatoid factor, left shoulder[ICD10: M06.012] Diagnosis: Pain in right shoulder[ICD10: M25.511] Diagnosis: Pain in left shoulder[ICD10: M25.512] Diagnosis: Chronic atrial fibrillation[ICD10: I48.2] Araceli Silva MD [facility] CPT-4: 27023 06/17/2017 79020 EST. PATIENT, LEVEL III Diagnosis: Pain in left shoulder[ICD10: M25.512] Diagnosis: Hemarthrosis, right shoulder[ICD10: M25.011] Diagnosis: Hemarthrosis, left shoulder[ICD10: M25.012] Maricel Silva MD, [facility] CPT-4: 22560 06/01/2017 ([id number]) 88069 EST. PATIENT, LEVEL II Diagnosis: Pain in right shoulder[ICD10: M25.511] Diagnosis: Hemarthrosis, right shoulder[ICD10: M25.011] Araceli Silva MD, [facility] CPT-4: 65864 04/02/2017 ([id number]) 48417 EST. PATIENT, LEVEL IV Diagnosis: Chronic pain syndrome[ICD10: G89.4] Diagnosis: Rheumatoid arthritis without rheumatoid factor, right shoulder[ICD10 : M06.011] Diagnosis: Rheumatoid arthritis without rheumatoid factor, left shoulder[ICD10: M06.012] Araceli Silva MD, [facility] CPT-4: 27210 2017 ([id number]) 52045 EST. 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 PATIENT, LEVEL IV Diagnosis: Encounter for immunization[ICD10: Z23] Diagnosis: Chronic pain syndrome[ICD10: G89.4] Diagnosis: Essential (primary) hypertension[ICD10: I10] Araceli Silva MD, [facility] CPT-4: 95332 12/08/2016 ([id number]) 05325 EST. PATIENT, LEVEL III Diagnosis: Urge incontinence[ICD10: N39.41] Diagnosis: Chronic pain syndrome[ICD10: G89.4] Diagnosis: Lymphedema, not elsewhere classified[ICD10: I89.0] Araceli Silva MD, [facility] CPT-4: 51770 11/17/2016 56348 EST. 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 PATIENT, LEVEL IV Diagnosis: Essential (primary) hypertension[ICD10: I10] Diagnosis: Other chronic pain[ICD10: G89.29] Diagnosis: Localized edema[ICD10: R60.0] Diagnosis: Urge incontinence[ICD10: N39.41] Araceli Silva MD, [facility] CPT-4: 79996 11/05/2016 ([id number]) 09311 EST. 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 PATIENT, LEVEL III Diagnosis: Hemarthrosis, right shoulder[ICD10: M25.011] Diagnosis: Pain in right shoulder[ICD10: M25.511] Ila Silva MD, [facility] CPT-4: 70604 10/02/2016 25049 EST. PATIENT, LEVEL II Diagnosis: Low back pain[ICD10: M54.5] Diagnosis: Sacroiliitis, not elsewhere classified[ICD10: M46.1] Ila Silva MD, [facility] CPT-4: 50875 09/12/2016 ([id number]) 36571 EST. PATIENT, LEVEL III Diagnosis: Hemarthrosis, right shoulder[ICD10: M25.011] Diagnosis: Other chronic pain[ICD10: G89.29] Araceli Silva MD, [facility] CPT-4: 27448 09/08/2016 ([id number]) 82223 EST. PATIENT, LEVEL IV Diagnosis: Other iron deficiency anemias[ICD10: D50.8] Diagnosis: Vitamin D deficiency, unspecified[ICD10: E55.9] Diagnosis: Hypomagnesemia[ICD10: E83.42] Araceli Silva MD [facility] CPT- 4: 39758 08/26/2016 ([id number]) 83604 EST. PATIENT, LEVEL III Diagnosis: Localized edema[ICD10: R60.0] Araceli Silva MD [facility] CPT- 4: 46564 08/18/2016 ([id number]) 93096 EST. 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 PATIENT, LEVEL IV Diagnosis: Pain in left shoulder[ICD10: M25.512] Diagnosis: Nocturia[ICD10: R35.1] Maricel Silva MD, [facility] CPT-4: 67822 07/14/2016 72445 EST. PATIENT, LEVEL III Diagnosis: Pain in left shoulder[ICD10: M25.512] Maricel Silva MD [facility] CPT-4: 82792 07/04/2016 ([id number]) 16726 EST. 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 PATIENT, LEVEL II Diagnosis: Insect bite (nonvenomous) of right upper arm, initial encounter[ICD10 : S40.861A] Ila Silva MD, [facility] CPT-4: 26881 11/01/2015 ([id number]) 66424 EST. 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 PATIENT, LEVEL III Diagnosis: Contusion of left upper arm, subsequent encounter[ICD10: S40.022D] Araceli Silva MD, [facility] CPT-4: 60760 2015 60487 EST. PATIENT, LEVEL III Diagnosis: Cellulitis of left upper limb[ICD10: L03.114] Maricel Silva MD, [facility] CPT-4: 79667 07/18/2015 ([id number]) 15005 EST. 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 PATIENT, LEVEL IV Diagnosis: Essential (primary) hypertension[ICD10: I10] Diagnosis: Vitamin D deficiency, unspecified[ICD10: E55.9] Diagnosis: Mixed hyperlipidemia[ICD10: E78.2] Diagnosis: Age-related osteoporosis with current pathological fracture, unspecified site, sequela[ICD10: M80.00XS] Araceli Silva MD, [facility] CPT- 4: 07065 02/08/2015 ([id number]) 66973 EST. PATIENT, LEVEL IV Diagnosis: Essential (primary) hypertension[ICD10: I10] Diagnosis: Localized edema[ICD10: R60.0] Diagnosis: Primary osteoarthritis, unspecified site[ICD10: M19.91] Araceli Silva MD, [facility] CPT-4: 30494 12/11/2014 ([id number]) 51946 EST. PATIENT, LEVEL III Diagnosis: EDEMA[ICD9: 782.3] Diagnosis: ESSENTIAL HYPERTENSION[ICD9: 401.9] Araceli Silva MD, [facility] CPT-4: 36122 11/09/2014 ([id number]) 30082 EST. PATIENT, LEVEL III Diagnosis: Leg pain[ICD9: 729.5] Diagnosis: Ulcer of toe[ICD9: 707.15] Araceli Silva MD, [facility] CPT- 4: 99051 10/23/2014 ([id number]) 44908 EST. PATIENT, LEVEL III Diagnosis: Ulcer of toe[ICD9: 707.15] Araceli Silva MD, [facility] CPT- 4: 70585 10/16/2014 83899 EST. PATIENT, LEVEL II Diagnosis: Ulcer of toe[ICD9: 707.15] Ila Silva MD, [facility] CPT-4: 23644 10/09/2014 ([id number]) 11470 EST. PATIENT, LEVEL III Diagnosis: EDEMA[ICD9: 782.3] Araceli Silva MD, [facility] CPT-4: 84738 09/14/2014 ([id number]) 13242 EST. PATIENT, LEVEL IV Diagnosis: EDEMA[ICD9: 782.3] Diagnosis: ESSENTIAL HYPERTENSION[ICD9: 401.9] Araceli Silva MD, [facility] CPT-4: 61303 08/11/2014 ([id number]) OFFICE VISIT, NEW - LEVEL 4 Diagnosis: HYPERLIPIDEMIA[ICD9: 272.4] Diagnosis: VITAMIN D DEFICIENCY[ICD9: 268.9] Diagnosis: Osteoporosis[ICD9: 733.00] Diagnosis: Esophageal reflux[ICD9: 530.81] Diagnosis: Chronic pain[ICD9: 338.29] [facility] CPT- 4: 84446 07/12/2014 Plan of Care Planned Activity Notes Codes Status Date Visit Plan: Melena - hemorrhoidal tissue- discussed with pt and her daughter - rx for proctofoam and suppositories given to patient - they will pickling solution maker the RX that is 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 Avoid straining when having bowel movements. Monitor symptoms closely. 05/10/2018 Appointment: Araceli Silva WPtel: [address] [place], [place] [phone] (15 min) Moderate 05/10/2018 Patient [...] of miralax. 05/04/2018 Appointment: Araceli Silva WPtel: [address] [place], [place] [phone] (15 min) Moderate 05/04/2018 Patient Education: Patient Medication Summary Completed 05/04/2018 Appointment: Araceli Silva WPtel: [address] [place], [place] [phone] (15 min) Moderate 05/03/2018 Visit Plan: Gastroenteritis [...] stomach pain. 04/21/2018 Appointment: Maricel Gee WPtel: [facility] (30 min) Complex 04/21/2018 Patient Education: [...] - continue with fentanyl 03/03/2018 Appointment: Araceli Silva WPtel: [phone] [facility] (15 min) Moderate 03/03/2018 Patient [...] breath - will send rx to [facility] 02/12/2018 Appointment: Ila Kennedy WPtel: [phone] [phone] (30 min) Complex 02/12/2018 Patient Education: Patient Medication Summary Completed 02/12/2018 Visit Plan: Chronic Pain Syndrome - pt has chronic pain - has been maintained on current medications, has not sought out other medications , only uses PRN pain medications as directed, and understands the consequences of over-medication. Hgwub-ktiulfjzpy-sysvjdhc with lasix/metolazone -if swelling /weight increase, okay to increase metolazone to daily as directed Cough- okay for robitussin dm Diarrhea- rx for lomotil written and instructed on use-follow up in 3 weeks, sooner if needed. Call with any concerns. 02/09/2018 Appointment: Ila Kennedy WPtel: [phone] [place] (30 min) Complex 02/09/2018 Patient Education: Patient Medication Summary Completed 02/09/2018 Appointment: Araceli Silva WPtel: [facility] [place] (15 min) Moderate 02/04/2018 Visit Plan: Edema/Lymphedema [...] of over-medication. 01/14/2018 Appointment: Araceli Silva WPtel: [facility] (15 min) Moderate 01/14/2018 Patient Education: Patient [...] scheduled. 12/24/2017 App[facility]ment[phone] [place] ([facility] min) Complex 12/24/2017 Patient Education: Patient [...] and output. 11/30/2017 Appointment: [phone] (15 min) Moderate 11/30/2017 Patient [...] over-medication. 11/10/2017 Appointment: [phone] [place] (15 min) Moderate 11/10/2017 Patient Education: [...] hands/fingers. We will contact [facility] in [place] for paperwork regarding the scooter. 10/29/2017 Appointment: [facility] Silva [phone] [place] (15 min) Moderate 10/29/2017 Patient Education: [...] iron back at the hospital - since Feranndo cannot tolerate the oral iron - we [...] supportive care at this time. 10/20/2017 Appointment: [facility] Silva [phone] (30 min) Complex 10/20/2017 Patient [...] drained today. 09/29/2017 Appointment: [phone] (15 min) Moderate 09/29/2017 Patient [...] Completed 08/21/2017 Appointment: [phone] (15 min) Moderate 08/20/2017 Visit Plan: Hemarthrosis shoulders - 250mL from left shoulder and 100mL from right shoulder with 1ml kenalog injected into right and left shoulders - Left and right shoulder pain and swelling, swelling into arms and left breast -pt to continue with use of compression sleeves. [id number] sep 2018 bristol 2ml kenalog 08/12/2017 Appointment: [phone] (15 min) Moderate 08/12/2017 Patient [...] edema. 08/05/2017 Appointment: Araceli Silva WPtel: [phone] [facility] (15 min) Moderate 08/05/2017 Patient Education: Patient [...] peripheral edema. 07/23/2017 Appointment: Araceli Silva WPtel: [facility] (15 min) Moderate 07/23/2017 Patient Education: Patient [...] Silva WPtel: [phone] [facility] (15 min) Moderate 07/09/2017 Patient Education: Patient [...] monitor symptoms. 07/01/2017 Appointment: Araceli Silva WPtel: [facility] (15 min) Moderate 07/01/2017 Patient Education: Patient Medication Summary Completed 07/01/2017 Visit Plan: Chronic Pain Syndrome - pt has chronic pain - has been maintained on current medications, has not sought out other medications , only uses PRN pain medications as directed, and understands the consequences of over-medication. 06/24/2017 Appointment: Araceli Silva WPtel: [facility] (15 min) Moderate 06/24/2017 Patient Education: Patient [...] peripheral edema. 06/17/2017 Appointment: Araceli Silva WPtel: [facility] [place] (30 min) Complex 06/17/2017 Patient Education: Patient Medication Summary Completed 06/17/2017 Appointment: Araceli Silva WPtel: [facility] [place] (15 min) Moderate 06/08/2017 Care Plan: Referral Order SNOMED-CT : 718335787 Pending 06/02/2017 Visit Plan: Left and right [...] edema. 06/01/2017 Appointment: Maricel Gee WPtel: [phone] [facility] [place] (30 min) Complex 06/01/2017 Patient Education: [...] shoulder 04/02/2017 Appointment: Araceli Silva WPtel: [phone] [facility] [place] (15 min) Moderate 04/02/2017 Patient Education: [...] stomach upset. 03/12/2017 Appointment: Araceli Silva WPtel: [phone] [facility] [place] (15 min) Moderate 03/12/2017 Patient Education: [...] check ROMIE. 01/08/2017 Appointment: Araceli Silva WPtel: [phone] [facility] (15 min) Moderate 01/08/2017 Patient Education: Patient [...] with Remicaide. 12/08/2016 Appointment: Araceli Silva WPtel: [facility] (15 min) Moderate 12/08/2016 Patient Education: Patient [...] now 11/17/2016 Appointment: Araceli Silva WPtel: [phone] [facility] (15 min) Moderate 11/17/2016 Patient Education: Patient [...] over-medication. 11/10/2016 Appointment: Maricel Gee WPtel: [phone] [facility] (30 min) Complex 11/10/2016 Patient Education: [...] immunosuppression. 11/05/2016 Appointment: [phone] (15 min) Moderate 11/05/2016 Patient Education: Patient [...] cbc today. 10/07/2016 Appointment: Araceli Silva WPtel: [facility] (15 min) Moderate 10/07/2016 Patient Education: Patient Medication Summary Completed 10/07/2016 Care Plan: Referral Order SNOMED-CT : [id number] Pending 10/07/2016 Care Plan: Referral Order SNOMED-CT : [id number] Pending 10/07/2016 Visit Plan: Hemarthrosis -right shoulder-only able to drain 5ml of bloody drainage-unable to give oral steroids due to recent GI bleed -will give kenalog injection today in the office-discussed getting OSMO patch 10/02/2016 Appointment: Ila Kennedy WPtel: [phone] [place] (30 min) Complex 10/02/2016 Patient Education: Patient Medication Summary Completed 10/02/2016 Appointment: Araceli Silva WPtel: [facility] [place] (15 min) Moderate 09/23/2016 Appointment: Araceli Silva WPtel: [facility] [place] (15 min) Moderate 09/17/2016 Visit Plan: Sacroiliitis - back exercises discussed with the patient, pt to continue with anti-inflammatories. Pt is to call if the symptoms do not improve or if they worsen. Kenalog injection today in the office. 09/12/2016 Appointment: Ila Kennedy WPtel: [phone] [place] (15 min) Moderate 09/12/2016 Patient [...] Injection of kenalog 1mL - 40mg - [employer] - lot #[id number] , expires oct 2017 Chronic Pain Syndrome - pt has chronic pain - has been maintained on current medications, has not sought out other medications, only uses PRN pain medications as directed, and understands the consequences of over-medication. 09/08/2016 Appointment: Araceli Silva WPtel: [phone] [facility] (15 min) Moderate 09/08/2016 Patient Education: Patient [...] magnesium level 08/26/2016 Appointment: Araceli Silva WPtel: [facility] (15 min) Moderate 08/26/2016 Patient Education: Patient [...] Education: Patient Medication Summary Completed 08/18/2016 Appointment: Araclei Silva WPtel: [facility] [place] (15 min) Moderate 08/13/2016 Appointment: Araceli Silva WPtel: [facility] [place] (15 min) Moderate 08/06/2016 Visit Plan: [...] the daytime. 07/30/2016 Appointment: [phone] (15 min) Moderate 07/30/2016 Patient Education: Patient Medication Summary Completed 07/30/2016 Visit Plan: Left shoulder pain - improving - pt is to notify clinic if symptoms do not improve, if they worsen, or with any questions or concerns. Nocturia - will give samples, pt is to notify clinic if symptoms do not improve. 07/14/2016 Appointment: Maricel Gee WPtel: [facility] ([facility] 07/14/2016 Patient Education: Patient [...] any dyspnea. 07/04/2016 Appointment: Maricel Gee WPtel: [facility] (30 min) Complex 07/04/2016 Patient Education: Patient [...] medication. 06/26/2016 Appointment: [phone] (15 min) Moderate 06/26/2016 Patient Education: Patient [...] over-medication. 05/28/2016 Appointment: Araceli Silva WPtel: [phone] [facility] [place] (15 min) Moderate 05/28/2016 Patient Education: Patient Medication Summary Completed 05/28/2016 Patient Education: Hypertension Completed 05/28/2016 Appointment: Araceli Silva WPtel: [phone] [facility] [place] (15 min) Moderate 05/12/2016 Appointment: [phone] [place] (15 min) Moderate 04/15/2016 Appointment: [phone] [place] (30 min) Complex 03/25/2016 [...] premarin. 03/18/2016 Appointment: Araceli Silva WPtel: [phone] [facility] [place] (30 min) Complex 03/18/2016 Patient Education: Patient Medication Summary Completed 03/18/2016 Appointment: Araceli Silva WPtel: [phone] [facility] (15 min) Moderate 02/19/2016 Visit Plan: Hypertension [...] of over-medication. 01/29/2016 Appointment: Araceli Silva WPtel: [facility] (15 min) Moderate 01/29/2016 Patient Education: Patient Medication Summary Completed 01/29/2016 Visit Plan: Discussed MRI of the neck - pt is interested in doing this - however, not prior to changing her medication first to see if this helps her pain 01/01/2016 Appointment: Araceli Silva WPtel: [phone] [id number] (15 min) Moderate 01/01/2016 Patient Education: Patient Medication Summary Completed 01/01/2016 Patient Education: Hypertension Completed 01/01/2016 Appointment: Araceli Silva WPtel: [facility] (15 min) Moderate 12/03/2015 Visit Plan: Chronic [...] or nonhealing. 11/01/2015 Appointment: Ila Kennedy WPtel: [phone] (15 min) Moderate 11/01/2015 Patient Education: Patient Medication Summary Completed 11/01/2015 Visit Plan: Chronic Pain Syndrome - pt has chronic pain - has been maintained on current medications, has not sought out other medications , only uses PRN pain medications as directed, and understands the consequences of over-medication. Muscle spasms - recommended muscle rub. 09/04/2015 Appointment: Araceli Silva WPtel: [facility] (15 min) Moderate 09/04/2015 Patient Education: Patient Medication Summary Completed 09/04/2015 Visit Plan: Ecchymosis/hematoma - improving - discussed natural progression of hematomas - watchful waiting. 2015 Appointment: Araceli Silva WPtel: [facility] (15 min) Moderate 2015 Patient Education: Patient Medication Summary Completed 2015 Visit Plan: Cellulitis - continue with oral antibiotics as previously directed, return to clinic as previously directed, call for acute change in symptoms, worsening redness, warmth, discharge. 07/18/2015 Appointment: Ila Kennedy WPtel: [phone] [place] (30 min) Complex 07/18/2015 Patient [...] center. 07/02/2015 [phone] [place] (15 min) Moderate 07/02/2015 Patient [...] with ambulation. 04/09/2015 [facility]ment[phone] (15 min) Moderate 04/09/2015 Patient Education: Patient [...] d supplementation. 02/08/2015 App[facility]ment[phone] (15 min) Moderate 02/08/2015 Patient Education: Patient [...] pill in the evening. 12/11/2014 Appointment: Araceli Silav WPtel: [facility] (15 min) Moderate 12/11/2014 Patient Education: Patient [...] - improved. 11/09/2014 Appointment: Araceli Silva WPtel: [facility] ([facility]) Moderate 11/09/2014 Patient Education: Patient Medication Summary Completed 11/09/2014 Patient Education: Hypertension Completed 11/09/2014 Visit Plan: Leg pain/cellulitis of leg - start on the doxycycline twice daily - take this x 2 weeks, if the symptoms in your leg/ thigh are not completely resolved, there is a refill that is available. start on a probiotic one pill daily ([employer] or [facility]) this will help prevent the development of a bad type of diarrhea that can occur when taking antibiotics. Ulcer of toe - improving. 10/23/2014 Appointment: Araceli Silva WPtel: [id number] (15 min) Moderate 10/23/2014 Patient Education: Patient Medication Summary Completed 10/23/2014 Visit Plan: Ulcer - keep lesion covered, antibiotic ointment to be used, monitor - call if redness increases or starts streaking up the foot. 10/16/2014 Appointment: Araceli Silva WPtel: [id number] (15 min) Moderate 10/16/2014 Patient Education: Patient [...] peripheral edema. 09/14/2014 Appointment: Araceli Silva WPtel: [facility] Follow up 09/14/2014 Patient Education: Patient Medication [...] medication. 07/12/2014 Appointment: [phone] [place] ([place] New Patient 07/12/2014 Patient Education: Patient Medication Summary Completed 07/12/2014 Patient Education: Hypertension Completed 07/12/2014 Referral: Dr Virgen Referral Completed Referral: External, Ordering Provider Referral Completed Referral: [facility] WPtel: Referral Initiated Instructions Comment . Hemarthrosis -right shoulder-only able to drain 5ml of bloody drainage-unable to give oral steroids due to recent GI bleed-will give kenalog injection today in the office-discussed getting OSMO patch . Hypertension - well controlled - continue [...] Ambrocio's associate. Continue with steroids, immunosuppression. . Fatigue and Anemia - recommended stat [...] in blood pressure readings at home. . Hemarthrosis - pt was prepped and [...] start on a probiotic one pill daily ([employer] or [employer]) this will help prevent the development of a bad type of diarrhea that can occur when taking antibiotics. . Leg pain/cellulitis of leg - start on the doxycycline twice daily - take this x 2 weeks, if the symptoms in your leg/thigh are not completely resolved, there is a refill that is available. start on a probiotic one pill daily ([employer] or [employer]) this will help prevent the development of [...] Injection of kenalog 1mL - 40mg - [employer] - lot #[id number] , expires oct 2017 Chronic Pain Syndrome [...] directed, and understands the consequences of over-medication. Gatorade or [employer] rehydration solution: 24 [...] of stomach upset or stomach pain. . Hemarthrosis shoulders - 175mL from left [...] home. Inflammatory Arthritis - continue with Remicaide. decrease the fentanyl to 100mcg start on [...] take an extra 1/2 teaspoon of miralax. bumex daily in the afternoon . Edema-worsening- discussed with Dr Silva-continue with lymphedema wraps -rx for bumex provided and instructed on use- follow up with Dr Silva on Thursday as scheduled. Patient verbalized understanding of plan. . Chronic Pain Syndrome - pt has [...] closely monitor her intake and output. . Cellulitis - continue with oral antibiotics as previously directed, return to clinic as previously directed, call for acute change in symptoms, worsening redness, warmth, discharge. . Hemarthrosis - pt was prepped and [...] hands/fingers. We will contact [facility] [employer] in [place] for paperwork regarding the scooter. we are going to check the iron [...] with supportive care at this time. . Hypertension - well controlled - continue [...] breath -will send rx to [facility] next mammogram will be due in Oct. [...] to continue with use of compression sleeves. [id number] sep 2018 manuel 2ml kenalog . Tick Bite - pt given script [...] suppositories given to patient - they will pickling solution maker the RX that is 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 Avoid [...] - continue with fentanyl and oxycodone scheduled. OKAY FOR ROBITUSSIN DM TO USE NEEDED [...] directed, and understands the consequences of over-medication. [id number] with lasix/metolazone -if swelling/weight increase, okay to [...] office. two old goats muscle rub from [employer] and home. . Chronic Pain Syndrome - [...] pt through the cancer center/surgery center. . Edema/Lymphedema - prn metalozone rx sent [...]
--- OUTSIDE RECORDS SUMMARY | 2018-06-03 15:42 | XMS REPORT | CCD ---
Author Author Araceli Silva Organization Araceli Silva MD, [facility] Address [address] [place] [address] Phone Care Team Providers Care Enterprise Mobility Architect Name Role Phone PP Unavailable CCM Unavailable Summary Purpose Interface Exchange Insurance Providers Payer name Policy type / Coverage type Covered alliance party ID Effective Begin Date Effective End Date [employer] [employer] Medicare Part B [id number] 2017 Unknown AETNA Medicare Part B [id number] Unknown Family history Father Diagnosis Age At [...] Unknown Retired 07/12/[address]: 8553689 Quit over 10 years ago 1967 07/12/2014 [...] Fill Instructions oxycodone 30 mg tablet RxNorm: 5668869 1/2 Tablet(s) PO Q6 07/15/2018 Active Lasix 40 mg tablet RxNorm: 455726 1 Tablet(s) PO BID 201807/10/2018 Active Proctocort 30 mg rectal suppository RxNorm: 0425888 1 Suppository RTL daily x 1 wk then daily prn hemorrhoids 05/10/2018 No Stop Date Active fentanyl 100 mcg/hr transdermal patch RxNorm: 874627 1 Patch TD Q72H 05/07/2018 06/05/2018 Active prednisone 10 mg tablet RxNorm: 093895 1 Tablet(s) PO UD 2 tabs daily x 1 week then decrease to 1 pill daily x 1 week then go back to 5mg daily 05/04/2018 05/24/2018 Active gabapentin 100 mg capsule RxNorm: 550391 1 Capsule(s) PO at bedtime x 1 week then increase up to one pill twice daily x 1 wk then TID thereafter 05/04/2018 08/31/2018 Active ondansetron 4 mg disintegrating tablet RxNorm: 381910 1 Tablet(s) PO TID as needed nausea and vomitting 04/21/2018 Active promethazine 25 mg tablet RxNorm: 245457 1 Tablet(s) PO TID as needed nausea and vomitting 04/21/2018 05/20/2018 Active promethazine 25 mg/mL injection solution RxNorm: 004056 Milliliter(s) Inj 04/21/2018 04/21/2018 Inactive ondansetron 4 mg disintegrating tablet RxNorm: 613741 1 Tablet(s) PO TID as needed nausea and vomitting 04/21/2018 Inactive promethazine 25 mg tablet RxNorm: 296451 1 Tablet(s) PO TID as needed nausea and vomitting 04/21/2018 04/25/2018 Inactive metolazone 10 mg tablet RxNorm: 205291 1 Tablet(s) PO every other day uncontrolled edema 04/08/2018 12/03/2018 Active fentanyl 100 mcg/hr transdermal patch RxNorm: 605011 1 Patch TD Q72H use with 25mcg/hr patch 04/07/2018 05/06/2018 Inactive fentanyl 25 mcg/hr transdermal patch RxNorm: 702060 1 Patch TD Q72H use with 100mcg patch for a total of 125mcg daily 04/07/2018 05/03/2018 Inactive potassium chloride ER 10 mEq tablet,extended release(part/ cryst) RxNorm: 0399307 2 Tablet(s) PO TID 03/30/2018 07/27/2018 Active oxycodone 30 mg tablet RxNorm: 3962925 1/2 Tablet(s) PO Q6 05/15/2018 Inactive fentanyl 25 mcg/hr transdermal patch RxNorm: 328887 1 Patch TD Q72H use with 100mcg patch for a total of 125mcg daily 03/17/2018 04/06/2018 Inactive Lasix 40 mg tablet RxNorm: 752470 Tablet(s) PO TAKE 1 TABLET BY MOUTH TWICE DAILY 03/04/2018 05/11/2018 Inactive fentanyl 100 mcg/hr transdermal patch RxNorm: 611748 1 Patch TD Q72H use with 25mcg/hr patch 03/03/2018 04/01/2018 Inactive potassium chloride ER 10 mEq capsule,extended release RxNorm: 344693 2 Capsule(s) PO TID 03/03/2018 03/29/2018 Inactive albuterol sulfate 2.5 mg/3 mL (0.083 %) solution for nebulization RxNorm: 458737 3 Milliliter(s) INH Q4 PRN 02/18/2018 No Stop Date Active cefdinir 300 mg capsule RxNorm: 349699 1 Capsule(s) PO BID 02/24/2018 Inactive cefdinir 300 mg capsule RxNorm: 681132 1 Capsule(s) PO BID 02/17/2018 Inactive Flonase Allergy Relief 50 mcg/actuation nasal spray, suspension RxNorm: 8704094 2 [place] NASAL daily 02/12/20182017 Inactive Zithromax Z-Humberto 250 mg tablet RxNorm: 295508 1 Tablet(s) PO UD 02/12/2018 02/16/2018 Inactive Lomotil 2.5 mg-0.025 mg tablet RxNorm: 8031306 1 Tablet(s) PO BID PRN 02/09/2018 No Stop Date Active fentanyl 25 mcg/hr transdermal patch RxNorm: 155605 1 Patch TD Q72H use with 100mcg patch for a total of 125mcg daily 02/09/2018 03/10/2018 Inactive oxycodone 30 mg tablet RxNorm: 9592518 1/2 Tablet(s) PO Q6 03/14/2018 Inactive metolazone 10 mg tablet RxNorm: 092907 1 Tablet(s) PO QAM as needed uncontrolled edema 01/14/2018 03/14/2018 Inactive fentanyl 100 mcg/hr transdermal patch RxNorm: 196332 1 Patch TD Q72H use with 25mcg/hr patch 01/14/2018 02/12/2018 Inactive fentanyl 25 mcg/hr transdermal patch RxNorm: 736453 1 Patch TD Q72H use with 100mcg patch for a total of 125mcg daily 01/14/2018 02/08/2018 Inactive metolazone 10 mg tablet RxNorm: 323096 1 Tablet(s) PO every other day as needed uncontrolled edema 01/07/2018 01/13/2018 Inactive metolazone 10 mg tablet RxNorm: 415389 1 Tablet(s) PO every other day as needed uncontrolled edema 01/07/2018 01/06/2018 Inactive Cipro 500 mg tablet RxNorm: 697095 1 Tablet(s) PO BID 201701/05/2018 Inactive Cipro 500 mg tablet RxNorm: 646805 1 Tablet(s) PO BID 201701/15/2018 Inactive Cardizem CD 360 mg capsule,extended release RxNorm: 330959 1 Capsule(s) PO daily 01/05/2018 05/04/2018 Inactive potassium chloride ER 10 mEq tablet,extended release(part/ cryst) RxNorm: 5314866 2 Capsule(s) PO TID when taking lasix 01/05/2018 05/04/2018 Inactive potassium chloride ER 10 mEq capsule,extended release RxNorm: 766984 Capsule(s) TAKE 1 CAPSULE BY MOUTH TWICE DAILY WHEN TAKING LASIX (FUROSEMIDE) 11/27/2017 03/02/2018 Inactive potassium chloride ER 10 mEq capsule,extended release RxNorm: 872095 Capsule(s) TAKE 1 CAPSULE BY MOUTH TWICE DAILY WHEN TAKING LASIX (FUROSEMIDE) 11/27/2017 11/26/2017 Inactive fentanyl 25 mcg/hr transdermal patch RxNorm: 875320 1 Patch TD Q72H use with 100mcg patch for a total of 125mcg daily 11/27/2017 12/26/2017 Inactive bumetanide 0.5 mg tablet RxNorm: 512417 1 Tablet(s) PO daily 12/23/2017 Inactive in the afternoon x 3 days then as needed per Dr Silva fentanyl 100 mcg/hr transdermal patch RxNorm: 516497 1 Patch TD Q72H use with 25mcg/hr patch 11/27/2017 12/26/2017 Inactive oxycodone 30 mg tablet RxNorm: 4595216 1/2 Tablet(s) PO Q6 12/27/2017 Inactive fentanyl 100 mcg/hr transdermal patch RxNorm: 844408 1 Patch TD Q72H use with 25mcg/hr patch 10/29/2017 11/26/2017 Inactive Lasix 20 mg tablet RxNorm: 228876 TAKE 1 TABLET BY MOUTH TWICE DAILY 10/29/2017 03/03/2018 Inactive fentanyl 25 mcg/hr transdermal patch RxNorm: 577721 1 Patch TD Q72H use with 100mcg patch for a total of 125mcg daily 10/29/2017 11/26/2017 Inactive pantoprazole 40 mg tablet,delayed release RxNorm: 502349 Tablet(s) Take 1 tablet by mouth daily 10/21/2017 04/18/2018 Inactive - Ref: [id number] potassium chloride ER 10 mEq capsule,extended release RxNorm: 341600 TAKE 1 CAPSULE BY MOUTH TWICE DAILY WHEN TAKING LASIX (FUROSEMIDE) 10/09/2017 11/26/2017 Inactive fentanyl 25 mcg/hr transdermal patch RxNorm: 702281 1 Patch TD Q72H use with 100mcg patch for a total of 125mcg daily 10/01/2017 10/28/2017 Inactive fentanyl 100 mcg/hr transdermal patch RxNorm: 434818 1 Patch TD Q72H use with 25mcg/hr patch 10/01/2017 10/28/2017 Inactive potassium chloride ER 10 mEq tablet,extended release(part/ cryst) RxNorm: 0379792 1 Capsule(s) PO BID when taking lasix 09/22/2017 01/04/2018 Inactive fentanyl 100 mcg/hr transdermal patch RxNorm: 558491 1 Patch TD Q72H use with 25mcg/hr patch 08/31/2017 09/29/2017 Inactive Kenalog 40 mg/mL suspension for injection RxNorm: 9389858 1 Milliliter(s) Inj 08/31/2017 08/31/2017 Inactive fentanyl 25 mcg/hr transdermal patch RxNorm: 504483 1 Patch TD Q72H use with 100mcg patch for a total of 125mcg daily 08/31/2017 09/29/2017 Inactive oxycodone 30 mg tablet RxNorm: 7850797 1/2 Tablet(s) PO Q6 04/201710/28/2017 Inactive cyanocobalamin (vit B-12) 1,000 mcg/mL injection solution RxNorm: 032473 1 Milliliter(s) Inj monthly 08/21/201708/15 Active please provide her with syringe/needle for injection cyanocobalamin (vit B-12) 1,000 mcg/mL injection solution RxNorm: 960597 1 Milliliter(s) Inj monthly 08/21/201708/20 Inactive please provide her with syringe/needle for injection Kenalog 40 mg/mL suspension for injection RxNorm: 7747546 2 Milliliter(s) Inj 1mL in each shoulder 08/21/2017 08/21/2017 Inactive cyanocobalamin (vit B-12) 1,000 mcg/mL injection solution RxNorm: 379017 1 Milliliter(s) Inj monthly 08/21/201708/20 Inactive please provide her with syringe/needle for injection Kenalog 40 mg/mL suspension for injection RxNorm: 7029307 2 Milliliter(s) Inj UD 08/12/2017 08/12/2017 Inactive fentanyl 25 mcg/hr transdermal patch RxNorm: 212712 1 Patch TD Q72H use with 100mcg patch for a total of 125mcg daily 08/05/2017 08/30/2017 Inactive fentanyl 100 mcg/hr transdermal patch RxNorm: 667632 1 Patch TD Q72H use with 25mcg/hr patch 08/05/2017 08/30/2017 Inactive Kenalog 40 mg/mL suspension for injection RxNorm: 2784724 2 Milliliter(s) Inj 1mL per shoulder 08/05/2017 08/05/2017 Inactive clindamycin HCl 150 mg capsule RxNorm: 635439 1 Capsule(s) PO QID Dr Shultz prescribed 07/23/2017 07/29/2017 Inactive prednisone 5 mg tablet RxNorm: 101053 1 Tablet(s) PO daily 11/201707/03/2018 Active fentanyl 25 mcg/hr transdermal patch RxNorm: 997491 1 Patch TD Q72H use with 100mcg patch for a total of 125mcg daily 07/01/2017 07/30/2017 Inactive Lasix 20 mg tablet RxNorm: 874584 1 Tablet(s) PO BID 201710/28/2017 Inactive fentanyl 100 mcg/hr transdermal patch RxNorm: 963861 1 Patch TD Q72H use with 25mcg/hr patch 07/01/2017 07/30/2017 Inactive potassium chloride ER 10 mEq capsule,extended release RxNorm: 061516 1 Capsule(s) PO BID when taking lasix 07/01/20172017 Inactive oxycodone 30 mg tablet RxNorm: 7084146 1/2 Tablet(s) PO Q6 08/22/2017 Inactive fentanyl 100 mcg/hr transdermal patch RxNorm: 690552 1 Patch TD Q72H use with 25mcg/hr patch 05/07/2017 06/05/2017 Inactive fentanyl 25 mcg/hr transdermal patch RxNorm: 036515 1 Patch TD Q72H use with 100mcg patch for a total of 125mcg daily 05/07/2017 06/05/2017 Inactive fentanyl 100 mcg/hr transdermal patch RxNorm: 849770 1 Patch TD Q72H 04/08/2017 05/06/2017 Inactive fentanyl 25 mcg/hr transdermal patch RxNorm: 586191 1 Patch TD Q72H use with 100mcg patch for a total of 125mcg daily 04/08/2017 05/06/2017 Inactive Kenalog 40 mg/mL suspension for injection RxNorm: 2049844 1.5 Milliliter(s) Inj 04/02/2017 04/02/2017 Inactive fentanyl 100 mcg/hr transdermal patch RxNorm: 689284 1 Patch TD Q72H 03/12/2017 04/07/2017 Inactive fentanyl 25 mcg/hr transdermal patch RxNorm: 111487 1 Patch TD Q72H use with 100mcg patch for a total of 125mcg daily 03/12/2017 04/07/2017 Inactive oxycodone 30 mg tablet RxNorm: 9248144 1/2 Tablet(s) PO Q6 09/201704/07/2017 Inactive cyanocobalamin (vit B-12) 1,000 mcg/mL injection syringe RxNorm: 298402 1 Milliliter(s) Inj monthly 02/16/2017 No Stop Date Active please provide with supplys needed for injection fentanyl 100 mcg/hr transdermal patch RxNorm: 949264 1 Patch TD Q72H 02/06/2017 03/07/2017 Inactive Myrbetriq 50 mg tablet,extended release RxNorm: 6463336 1 Tablet(s) PO QPM 12/11/2016 07/22/2017 Inactive oxycodone 30 mg tablet RxNorm: 0896021 1/2 Tablet(s) PO Q6 10/201601/06/2017 Inactive naproxen 500 mg tablet RxNorm: 201838 1 Tablet(s) PO BID Take 1 tablet by mouth two times daily as needed 12/08/201607/08 Inactive - First Attempt Ref: [id number] Myrbetriq 50 mg tablet,extended release RxNorm: 9650456 1 Tablet(s) PO QPM 11/17/2016 12/10/2016 Inactive fentanyl 100 mcg/hr transdermal patch RxNorm: 086627 1 Patch TD Q72H 11/12/2016 12/11/2016 Inactive Vesicare 10 mg tablet RxNorm: 856349 1 Tablet(s) PO QPM 201611/18/2016 Inactive oxycodone 10 mg tablet RxNorm: 9809972 1-2 Tablet(s) PO Q4 PRN as needed to take between 30mg dose if needed for extra pain control 201612/07/2016 Inactive fentanyl 75 mcg/hr transdermal patch RxNorm: 336409 1 TD Q72H 10/22/2016 11/10/2016 Inactive oxycodone 10 mg tablet RxNorm: 3068445 1-2 Tablet(s) PO Q4 PRN as needed to take between 30mg dose if needed for extra pain control 201611/04/2016 Inactive Kenalog 40 mg/mL suspension for injection RxNorm: 3940668 1 Milliliter(s) Inj 10/02/2016 10/02/2016 Inactive Kenalog 40 mg/mL suspension for injection RxNorm: 7072332 1 Milliliter(s) Inj 09/12/2016 09/12/2016 Inactive cyclobenzaprine 5 mg tablet RxNorm: 266578 1 Tablet(s) PO Q8 as needed muscle spasms 09/11/2016 07/22/2017 Inactive prednisone 10 mg tablets in a dose pack RxNorm: 729179 1 Tablet(s) PO UD 09/09/2016 06/23/2017 Inactive potassium chloride ER 10 mEq capsule,extended release RxNorm: 156924 1 Capsule(s) PO BID as needed when taking lasix 08/26/2016 06/30/2017 Inactive Lasix 20 mg tablet RxNorm: 672529 1 Tablet(s) PO BID daily x 10 days then as needed edema 08/26/2016 12/23/2016 Inactive naproxen 500 mg tablet RxNorm: 011159 Take 1 tablet by mouth two times daily as needed 08/18/2016 11/15/2016 Inactive - First Attempt Ref: [id number] Lasix 20 mg tablet RxNorm: 180633 1 Tablet(s) PO QAM daily x 10 days then as needed edema 08/18/2016 08/25/2016 Inactive Vesicare 5 mg tablet RxNorm: 530631 1 Tablet(s) PO QPM 201611/04/2016 Inactive potassium chloride ER 10 mEq capsule,extended release RxNorm: 866724 1 Capsule(s) PO QAM as needed when taking lasix 08/18/2016 08/25/2016 Inactive Myrbetriq 25 mg tablet,extended release RxNorm: 3212501 1 Tablet(s) PO QHS 07/14/2016 07/29/2016 Inactive pantoprazole 40 mg tablet,delayed release RxNorm: 628118 Take 1 tablet by mouth daily 06/30/2016 12/26/2016 Inactive - Ref: [id number] Embeda 20 mg-0.8 mg capsule, extend release, oral only RxNorm: 573973 1 Capsule(s ) PO daily 06/04/2016 06/03/2016 Inactive Embeda 20 mg-0.8 mg capsule, extend release, oral only RxNorm: 839877 1 Capsule(s ) PO daily 06/04/2016 07/01/2016 Inactive oxycodone 10 mg tablet RxNorm: 0595969 1 Tablet(s) PO QID as needed to take between 30mg dose if needed for extra pain control 201606/10/2016 Inactive oxycodone 30 mg tablet RxNorm: 3203962 1 Tablet(s) PO Q6 201611/04/2016 Inactive cyanocobalamin (vit B-12) 1,000 mcg/mL injection solution RxNorm: 283031 1 Milliliter(s) Inj monthly 02/22/201602/15 Inactive she also needs syringes/ needles for this solution QS oxycodone 30 mg tablet RxNorm: 7346170 1 Tablet(s) PO Q6 201503/19/2016 Inactive oxycodone 10 mg tablet RxNorm: 3817312 1 Tablet(s) PO QID as needed to take between 30mg dose if needed for extra pain control 201503/19/2016 Inactive oxycodone 10 mg tablet RxNorm: 6487074 1 Tablet(s) PO QID as needed to take between 30mg dose if needed for extra pain control 201502/18/2016 Inactive oxycodone 30 mg tablet RxNorm: 2522074 1 Tablet(s) PO Q6 201502/18/2016 Inactive pantoprazole 40 mg tablet,delayed release RxNorm: 484212 Take 1 tablet by mouth daily 01/22/2016 06/29/2016 Inactive - First Attempt Ref: [id number] oxycodone 30 mg tablet RxNorm: 5776994 1 Tablet(s) PO Q6 201501/28/2016 Inactive oxycodone 10 mg tablet RxNorm: 8896905 1 Tablet(s) PO QID as needed take between 20mg dose if needed for extra pain control 11/07/2015 12/06/2015 Inactive oxycodone 20 mg tablet RxNorm: 9091466 1 Tablet(s) PO Q6 as needed 11/07/2015 12/31/2015 Inactive doxycycline hyclate 100 mg tablet RxNorm: 737170 1 Tablet(s) PO BID 11/01/2015 11/10/2015 Inactive potassium chloride ER 10 mEq capsule,extended release RxNorm: 210165 1 Capsule(s) PO TIW as needed when taking lasix 09/04/2015 08/17/2016 Inactive Voltaren 1 % topical gel RxNorm: 245864 2 Gram(s) TOP QID 08/2909/03/2015 Inactive pa approved Voltaren 1 % topical gel RxNorm: 778479 2 Gram(s) TOP QID 08/0808/29/2015 Inactive naproxen 500 mg tablet RxNorm: 110101 1 Tablet(s) PO BID 201508/17/2016 Inactive naproxen 500 mg tablet RxNorm: 541613 1 Tablet(s) PO BID 201508/08/2015 Inactive doxycycline hyclate 100 mg tablet RxNorm: 883443 1 Tablet(s) PO BID do not take calcium/vitamin d while on antibiotic 07/18/2015 07/31/2015 Inactive Vitamin D2 50,000 unit capsule RxNorm: 692634 1 Capsule(s) PO QW 07/02/2015 11/18/2015 Inactive Premarin 0.3 mg tablet RxNorm: 792849 1 Tablet(s) PO daily 12/201505/09/2015 Inactive Premarin 0.3 mg tablet RxNorm: 424455 1 Tablet(s) PO daily 12/201503/17/2016 Inactive simvastatin 40 mg tablet RxNorm: 424887 1 Tablet(s) PO daily 03/17/2016 Inactive spironolactone 25 mg tablet RxNorm: 996803 TAKE ONE TABLET BY MOUTH DAILY 05/07/2015 05/27/2016 Inactive potassium chloride ER 10 mEq capsule,extended release RxNorm: 963720 1 Capsule(s) PO TIW as needed when taking lasix 04/17/2015 09/03/2015 Inactive alendronate 70 mg tablet RxNorm: 228306 1 Tablet(s) PO weekly QW 04/17/2015 07/01/2015 Inactive Vitamin D2 50,000 unit capsule RxNorm: 069617 1 Capsule(s) PO QW 03/30/2015 06/27/2015 Inactive Vitamin D2 50,000 unit capsule RxNorm: 260371 1 Capsule(s) PO QW 03/21/2015 03/29/2015 Inactive cyanocobalamin (vit B-12) 1,000 mcg/mL injection solution RxNorm: 464967 1 Milliliter(s) Inj monthly 03/19/201502/20 Inactive cyanocobalamin (vit B-12) 1,000 mcg/mL injection solution RxNorm: 226330 1 Milliliter(s) Inj monthly 03/16/201503/18 Inactive cyanocobalamin (vit B-12) 1,000 mcg/mL injection solution RxNorm: 373342 1 Milliliter(s) Inj monthly 03/16/201503/15 Inactive pantoprazole 40 mg tablet,delayed release RxNorm: 701488 1 Tablet(s) PO daily 03/05/2015 01/21/2016 Inactive Lasix 20 mg tablet RxNorm: 942461 1 Tablet(s) PO TIW as needed edema 02/08/2015 02/02/2016 Inactive oxycodone 10 mg tablet RxNorm: 0201975 1 Tablet(s) PO QID as needed take between 20mg dose if needed for extra pain control 11/09/2014 12/08/2014 Inactive oxycodone 20 mg tablet RxNorm: 6790572 1 Tablet(s) PO Q6 as needed 10/25/2014 11/06/2015 Inactive doxycycline hyclate 100 mg tablet RxNorm: 560321 1 Tablet(s) PO BID 10/23/2014 11/19/2014 Inactive Cipro 500 mg tablet RxNorm: 292637 1 Tablet(s) PO BID 201410/16/2014 Inactive Cipro 500 mg tablet RxNorm: 452144 1 Tablet(s) PO BID 201410/09/2014 Inactive oxycodone 20 mg tablet RxNorm: 4939196 1 Tablet(s) PO Q6 as needed 09/25/2014 10/24/2014 Inactive Lasix 20 mg tablet RxNorm: 510535 1 Tablet(s) PO TIW as needed edema 09/14/2014 01/11/2015 Inactive potassium chloride ER 10 mEq capsule,extended release RxNorm: 339032 1 Capsule(s) PO TIW as needed when taking lasix 09/14/2014 01/11/2015 Inactive doxycycline hyclate 100 mg tablet RxNorm: 015887 1 Tablet(s) PO BID 09/05/2014 09/14/2014 Inactive doxycycline hyclate 100 mg tablet RxNorm: 627265 1 Tablet(s) PO BID 09/05/2014 09/04/2014 Inactive oxycodone 20 mg tablet RxNorm: 3690936 1 Tablet(s) PO Q6 as needed 08/29/2014 09/24/2014 Inactive spironolactone 25 mg tablet RxNorm: 764252 1 Tablet(s) PO daily 08/11/2014 03/08/2015 Inactive oxycodone 20 mg tablet RxNorm: 3965303 1 Tablet(s) PO Q6 as needed 08/02/2014 08/28/2014 Inactive Vitamin D3 2,000 unit tablet RxNorm: 884300 1 Tablet(s) PO daily 07/14/2014 No Stop Date Active Vitamin D2 50,000 unit capsule RxNorm: 840489 1 Capsule(s) PO QW 07/14/2014 10/11/2014 Inactive Vitamin D2 50,000 unit capsule RxNorm: 209812 1 Capsule(s) PO QW 07/14/2014 07/13/2014 Inactive Prolia 60 mg/mL subcutaneous syringe RxNorm: 841659 Milliliter(s) SQ EVERY 6 MONTHS No Start Date Active Carafate 1 gram tablet RxNorm: 052054 1 Tablet(s) PO BID No Start Date Active Miralax oral RxNorm: 952273 oral No Start Date Active Stool Softener oral RxNorm: 54194 oral No Start Date Active Calcium + Vitamin D oral RxNorm: 4018 oral No Start Date Active naproxen 500 mg tablet RxNorm: 310862 1 Tablet(s) PO BID No Start Date 08/05/2015 Inactive albuterol sulfate 2.5 mg/3 mL (0.083 %) solution for nebulization RxNorm: 983094 3 Milliliter(s) INH Q4 PRN No Start Date 02/17/2018 Inactive oxycodone 20 mg tablet RxNorm: 2298658 1 Tablet(s) PO Q6 as needed No Start Date 08/01/2014 Inactive aspirin 81 mg tablet RxNorm: 946913 1 Tablet(s) PO daily No Start Date 07/22/2017 Inactive simvastatin 40 mg tablet RxNorm: 045243 1 Tablet(s) PO daily No Start Date 05/09/2015 Inactive cyanocobalamin (vit B-12) 1,000 mcg/mL injection syringe RxNorm: 673133 1 Inj monthly No Start Date 02/15/2017 Inactive Reglan 10 mg tablet RxNorm: 006977 1 Tablet(s) PO as needed No Start Date 07/29/2016 Inactive alendronate 70 mg tablet RxNorm: 719191 1 Tablet(s) PO weekly No Start Date 04/16/2015 Inactive Protonix 40 mg tablet,delayed release RxNorm: 876642 1 Tablet(s) PO daily No Start Date 03/04/2015 Inactive cyclobenzaprine 5 mg tablet RxNorm: 751986 1 Tablet(s) PO Q8 as needed muscle spasms No Start Date 09/10/2016 Inactive Vitamin D3 1,000 unit capsule RxNorm: 862496 1 Capsule(s) PO daily No Start Date 07/13/2014 Inactive Cardizem CD 360 mg capsule,extended release RxNorm: 713621 1 Capsule(s) PO daily No Start Date 01/04/2018 Inactive prednisone 10 mg tablets in a dose pack RxNorm: 772219 1 Tablet(s) PO UD No Start Date 09/08/2016 Inactive Medication Administered Medication Codes Instructions Start Date Status promethazine 25 mg/mL injection solution RxNorm: 447227 Milliliter 04/21/2018 No longer Active Kenalog 40 mg/mL suspension for injection RxNorm: 1816397 1Milliliter 08/31/2017 No longer Active Kenalog 40 mg/mL suspension for injection RxNorm: 6952084 2Milliliter 08/21/2017 No longer Active Kenalog 40 mg/mL suspension for injection RxNorm: 6361033 2MilliliterUD 08/12/2017 No longer Active Kenalog 40 mg/mL suspension for injection RxNorm: 4023168 2Milliliter 08/05/2017 No longer Active Kenalog 40 mg/mL suspension for injection RxNorm: 9452741 1.5Milliliter 04/02/2017 No longer Active Kenalog 40 mg/mL suspension for injection RxNorm: 3186472 1Milliliter 10/02/2016 No longer Active Kenalog 40 mg/mL suspension for injection RxNorm: 7901314 1Milliliter 09/12/2016 No longer Active Immunizations Vaccine [...] Item Item Code Result Date Comp Metabolic Pyk740 NA 134 mEq/L 03/03/2018 Comp Metabolic Won916 K 3.3 mEq/L 03/03/2018 Comp Metabolic Rsl215 CL 90 mEq/L 03/03/2018 Comp Metabolic Cld924 CO2 33.0 mEq/L 03/03/2018 Comp Metabolic Otb542 ANION GAP 14 03/03/2018 Comp Metabolic Hkw336 GLUCOSE 146 mg/dL 03/03/2018 Comp Metabolic Ktw892 Creat 1.7 mg/dL 03/03/2018 Comp Metabolic Led717 eGFR 31 ml/min/1.73m2 03/03/2018 Comp Metabolic Zib658 BUN 74 mg/dL 03/03/2018 Comp Metabolic Ppl019 B/C Ratio 43.8 Ratio 03/03/2018 Comp Metabolic Fxo941 CALCIUM 8.6 mg/dL 03/03/2018 Comp Metabolic Ggs352 ALK PHOS 70 U/L 03/03/2018 Comp Metabolic Dqk609 AST(SGOT) 14 U/L 03/03/2018 Comp Metabolic Tsb099 ALT(SGPT) 9 U/L 03/03/2018 Comp Metabolic Wif626 BILI T 0.6 mg/dL 03/03/2018 Comp Metabolic Gnw592 ALBUMIN 3.8 g/dL 03/03/2018 Comp Metabolic Tjl560 TPRO 6.7 g/dL 03/03/2018 Comp Metabolic Utk517 GLOB 2.9 g/dL 03/03/2018 Comp Metabolic Kiu105 A/G Ratio 1.3 Ratio 03/03/2018 Comp Metabolic Vgf479 Osmo 293 mOsmo 03/03/2018 Cbc With Differential [...] 29.9 pg 03/03/2018 Cbc With Differential Ord2 [place]% 11.1 % 03/03/2018 Cbc With Differential Ord2 [...] 1.38 K/ul 03/03/2018 Cbc With Differential Ord2 [place] ABS# 0.9 K/ul 03/03/2018 Cbc With Differential Ord2 Eos ABS# 0.0 K/ul 03/03/2018 Cbc With Differential Ord2 Baso ABS# 0.1 K/ul 03/03/2018 Tibc Ord40 Iron 75 ug/dl 10/22/2017 Tibc Ord40 UIBC 270 ug/dL 10/22/2017 Tibc Ord40 TIBC 345 ug/dL 10/22/2017 Tibc Ord40 Fe-%Sat 21.7 % 10/22/2017 Prealbumin 138612 PREALBUMIN 33 mg/dL 10/21/2017 Comp Metabolic Kgb185 NA 134 mEq/L 10/20/2017 Comp Metabolic Iwa828 K 3.7 mEq/L 10/20/2017 Comp Metabolic Bfq655 CL 93 mEq/L 10/20/2017 Comp Metabolic Mok225 CO2 29.0 mEq/L 10/20/2017 Comp Metabolic Ozi555 ANION GAP 16 10/20/2017 Comp Metabolic Dhn040 GLUCOSE 115 mg/dL 10/20/2017 Comp Metabolic Odw864 Creat 0.8 mg/dL 10/20/2017 Comp Metabolic Rlk960 eGFR 73 ml/min/1.73m2 10/20/2017 Comp Metabolic Pog540 BUN 46 mg/dL 10/20/2017 Comp Metabolic Fri832 B/C Ratio 57.5 Ratio 10/20/2017 Comp Metabolic Adj785 CALCIUM 8.7 mg/dL 10/20/2017 Comp Metabolic Kau625 ALK PHOS 56 U/L 10/20/2017 Comp Metabolic Pnk709 AST(SGOT) 19 U/L 10/20/2017 Comp Metabolic Lbz694 ALT(SGPT) 23 U/L 10/20/2017 Comp Metabolic Htc431 BILI T 0.6 mg/dL 10/20/2017 Comp Metabolic Phe628 ALBUMIN 4.0 g/dL 10/20/2017 Comp Metabolic Zal748 TPRO 6.6 g/dL 10/20/2017 Comp Metabolic Blx883 GLOB 2.7 g/dL 10/20/2017 Comp Metabolic Ssc250 A/G Ratio 1.5 Ratio 10/20/2017 Comp Metabolic Dgj780 Osmo 281 mOsmo 10/20/2017 Tsh Ord6 TSH [...] 35.4 pg 10/20/2017 Cbc With Differential Ord2 [place]% 9.9 % 10/20/2017 Cbc With Differential Ord2 [...] 1.15 K/ul 10/20/2017 Cbc With Differential Ord2 [place] ABS# 0.6 K/ul 10/20/2017 Cbc With Differential Ord2 Eos ABS# 0.0 K/ul 10/20/2017 Cbc With Differential Ord2 Baso ABS# 0.0 K/ul 10/20/2017 Iron Ord72 Iron 75 ug/dl 10/20/2017 Romie Reflex Profile [id number] ROMIE (BRYANNA) SCREEN NONE DETECTED 01/12/2017 Comp Metabolic Eja356 NA 129 mEq/L 01/08/2017 Comp Metabolic Cuo623 K 3.9 mEq/L 01/08/2017 Comp Metabolic Dkr145 CL 94 mEq/L 01/08/2017 Comp Metabolic Mny225 CO2 31.0 mEq/L 01/08/2017 Comp Metabolic Znn622 ANION GAP 8 01/08/2017 Comp Metabolic Dsg314 GLUCOSE 103 mg/dL 01/08/2017 Comp Metabolic Vim059 Creat 0.9 mg/dL 01/08/2017 Comp Metabolic Xhn252 eGFR 61 ml/min/1.73m2 01/08/2017 Comp Metabolic Tdv811 BUN 29 mg/dL 01/08/2017 Comp Metabolic Muo711 B/C Ratio 30.9 Ratio 01/08/2017 Comp Metabolic Gic015 CALCIUM 8.5 mg/dL 01/08/2017 Comp Metabolic Ktf495 ALK PHOS 58 U/L 01/08/2017 Comp Metabolic Vll012 AST(SGOT) 17 U/L 01/08/2017 Comp Metabolic Cmt191 ALT(SGPT) 10 U/L 01/08/2017 Comp Metabolic Fzy597 BILI T 0.4 mg/dL 01/08/2017 Comp Metabolic Ugx295 ALBUMIN 3.0 g/dL 01/08/2017 Comp Metabolic Zrv289 TPRO 5.5 g/dL 01/08/2017 Comp Metabolic Rbh963 GLOB 2.5 g/dL 01/08/2017 Comp Metabolic Rqp457 A/G Ratio 1.2 Ratio 01/08/2017 Comp Metabolic Gyi819 Osmo 265 mOsmo 01/08/2017 Cbc With Differential [...] 33.8 pg 01/08/2017 Cbc With Differential Ord2 [place]% 12.2 % 01/08/2017 Cbc With Differential Ord2 [...] 1.62 K/ul 01/08/2017 Cbc With Differential Ord2 [place] ABS# 0.9 K/ul 01/08/2017 Cbc With Differential [...] 33.1 pg 11/10/2016 Cbc With Differential Ord2 [place]% 9.1 % 11/10/2016 Cbc With Differential Ord2 [...] 0.78 K/ul 11/10/2016 Cbc With Differential Ord2 [place] ABS# 0.5 K/ul 11/10/2016 Cbc With Differential [...] 30.3 pg 10/07/2016 Cbc With Differential Ord2 [place]% 11.8 % 10/07/2016 Cbc With Differential Ord2 [...] 1.54 K/ul 10/07/2016 Cbc With Differential Ord2 [place] ABS# 1.0 K/ul 10/07/2016 Cbc With Differential Ord2 Eos ABS# 0.1 K/ul 10/07/2016 Cbc With Differential Ord2 Baso ABS# 0.0 K/ul 10/07/2016 Comp Metabolic Eae417 NA 129 mEq/L 08/26/2016 Comp Metabolic Xmw335 K 3.9 mEq/L 08/26/2016 Comp Metabolic Gdx959 CL 93 mEq/L 08/26/2016 Comp Metabolic Rus765 CO2 30.0 mEq/L 08/26/2016 Comp Metabolic Yza553 ANION GAP 10 08/26/2016 Comp Metabolic Yag089 GLUCOSE 87 mg/dL 08/26/2016 Comp Metabolic Jci572 Creat 0.6 mg/dL 08/26/2016 Comp Metabolic Tbt781 eGFR 96 ml/min/1.73m2 08/26/2016 Comp Metabolic Sta727 BUN 17 mg/dL 08/26/2016 Comp Metabolic Jbq734 B/C Ratio 27.0 Ratio 08/26/2016 Comp Metabolic Hrp463 CALCIUM 7.6 mg/dL 08/26/2016 Comp Metabolic Ydr275 ALK PHOS 72 U/L 08/26/2016 Comp Metabolic Wkp267 AST(SGOT) 20 U/L 08/26/2016 Comp Metabolic Cgg954 ALT(SGPT) 12 U/L 08/26/2016 Comp Metabolic Wxg907 BILI T 0.3 mg/dL 08/26/2016 Comp Metabolic Uph306 ALBUMIN 2.7 g/dL 08/26/2016 Comp Metabolic Ymi943 TPRO 5.3 g/dL 08/26/2016 Comp Metabolic Bvj029 GLOB 2.6 g/dL 08/26/2016 Comp Metabolic Mgs646 A/G Ratio 1.1 Ratio 08/26/2016 Comp Metabolic Uoa811 Osmo 260 mOsmo 08/26/2016 Cbc With Differential [...] 28.3 pg 08/26/2016 Cbc With Differential Ord2 [place]% 9.6 % 08/26/2016 Cbc With Differential Ord2 [...] 1.83 K/ul 08/26/2016 Cbc With Differential Ord2 [place] ABS# 1.0 K/ul 08/26/2016 Cbc With Differential Ord2 Eos ABS# 0.1 K/ul 08/26/2016 Cbc With Differential Ord2 Baso ABS# 0.0 K/ul 08/26/2016 Magnesium Ord90 Mag 1.9 mg/dL 08/26/2016 Vitamin D 25 Oh [id number] VITAMIN D, 25 HYDROXY 34.59 ng/mL Tibc Ord40 Iron 13 ug/dl 08/26/2016 Tibc Ord40 UIBC 283 ug/dL 08/26/2016 Tibc Ord40 TIBC 296 ug/dL 08/26/2016 Tibc Ord40 Fe-%Sat 4.4 % 08/26/2016 Ferritin Ord22 FERRITIN 28.8 ng/mL 08/26/2016 Sed Rate Ord21 ESR 20 mm/hr 11/19/2015 Comp Metabolic Xen025 NA 131 mEq/L 08/22/2015 Comp Metabolic Wzc917 K 4.2 mEq/L 08/22/2015 Comp Metabolic Viz824 CL 98 mEq/L 08/22/2015 Comp Metabolic Ckt291 CO2 27.0 mEq/L 08/22/2015 Comp Metabolic Qxi620 ANION GAP 10 08/22/2015 Comp Metabolic Edh961 GLUCOSE 80 mg/dL 08/22/2015 Comp Metabolic Gcn365 Creat 0.5 mg/dL 08/22/2015 Comp Metabolic Bxq205 eGFR 120 ml/min/1.73m2 08/22/2015 Comp Metabolic Uon529 BUN 13 mg/dL 08/22/2015 Comp Metabolic Ynf729 B/C Ratio 25.0 Ratio 08/22/2015 Comp Metabolic Ljm745 CALCIUM 8.2 mg/dL 08/22/2015 Comp Metabolic Kma755 ALK PHOS 49 U/L 08/22/2015 Comp Metabolic Byb968 AST(SGOT) 18 U/L 08/22/2015 Comp Metabolic Zfz703 ALT(SGPT) 11 U/L 08/22/2015 Comp Metabolic Ehd022 BILI T 0.5 mg/dL 08/22/2015 Comp Metabolic Moo496 ALBUMIN 3.5 g/dL 08/22/2015 Comp Metabolic Tjh595 TPRO 6.2 g/dL 08/22/2015 Comp Metabolic Zhh328 GLOB 2.7 g/dL 08/22/2015 Comp Metabolic Qvt367 A/G Ratio 1.3 Ratio 08/22/2015 Comp Metabolic Zjn066 Osmo 262 mOsmo 08/22/2015 Cbc With Differential [...] 32.4 pg 08/22/2015 Cbc With Differential Ord2 [place]% 10.3 % 08/22/2015 Cbc With Differential Ord2 [...] 1.39 K/ul 08/22/2015 Cbc With Differential Ord2 [place] ABS# 0.7 K/ul 08/22/2015 Cbc With Differential Ord2 Eos ABS# 0.1 K/ul 08/22/2015 Cbc With Differential Ord2 Baso ABS# 0.0 K/ul 08/22/2015 Tsh Ord6 hTSH II 2.19 uIU/mL 08/22/2015 Vitamin D 25 Oh Qgd5951 VITAMIN D, 25 HYDROXY 55.10 ng/mL Lipid [...] 1.5 Ratio 03/16/2015 Vitamin D 25 Oh Ged8887 VITAMIN D, 25 HYDROXY 28.94 ng/mL Cbc [...] 28.1 pg 03/16/2015 Cbc With Differential Ord2 [place]% 11.2 % 03/16/2015 Cbc With Differential Ord2 [...] 2.37 K/ul 03/16/2015 Cbc With Differential Ord2 [place] ABS# 0.8 K/ul 03/16/2015 Cbc With Differential Ord2 Eos ABS# 0.1 K/ul 03/16/2015 Cbc With Differential Ord2 Baso ABS# 0.0 K/ul 03/16/2015 Cbc With Differential Ord2 New Analyzer Notice Please note new ref ranges starting 03-14-2015 due to implemntation of new five part differential hematolgy analyzer. 03/16/2015 Comp Metabolic Lbv734 NA 131 mEq/L 03/16/2015 Comp Metabolic Kwh439 K 4.1 mEq/L 03/16/2015 Comp Metabolic Ejw870 CL 94 mEq/L 03/16/2015 Comp Metabolic Yji191 CO2 28.0 mEq/L 03/16/2015 Comp Metabolic Roj325 ANION GAP 13 03/16/2015 Comp Metabolic Mjl838 GLUCOSE 96 mg/dL 03/16/2015 Comp Metabolic Adn977 Creat 0.7 mg/dL 03/16/2015 Comp Metabolic Nzk490 eGFR 80 ml/min/1.73m2 03/16/2015 Comp Metabolic Jqi743 BUN 16 mg/dL 03/16/2015 Comp Metabolic Uxj351 B/C Ratio 21.6 Ratio 03/16/2015 Comp Metabolic Agw351 CALCIUM 8.9 mg/dL 03/16/2015 Comp Metabolic Saa940 ALK PHOS 44 U/L 03/16/2015 Comp Metabolic Kkq478 AST(SGOT) 22 U/L 03/16/2015 Comp Metabolic Noh286 ALT(SGPT) 14 U/L 03/16/2015 Comp Metabolic Hax012 BILI T 0.5 mg/dL 03/16/2015 Comp Metabolic Awu445 ALBUMIN 3.4 g/dL 03/16/2015 Comp Metabolic Enc959 TPRO 6.0 g/dL 03/16/2015 Comp Metabolic Ufe611 GLOB 2.6 g/dL 03/16/2015 Comp Metabolic Bsj723 A/G Ratio 1.3 Ratio 03/16/2015 Comp Metabolic Wns325 Osmo 264 mOsmo 03/16/2015 Comp Metabolic Unq935 NA 129 mEq/L 11/09/2014 Comp Metabolic Jlp292 K 4.2 mEq/L 11/09/2014 Comp Metabolic Mmg858 CL 96 mEq/L 11/09/2014 Comp Metabolic Ygl442 CO2 27.0 mEq/L 11/09/2014 Comp Metabolic Jwa616 ANION GAP 10 11/09/2014 Comp Metabolic Zxa625 GLUCOSE 144 mg/dL 11/09/2014 Comp Metabolic Qku305 Creat 0.8 mg/dL 11/09/2014 Comp Metabolic Dms007 eGFR 73 ml/min/1.73m2 11/09/2014 Comp Metabolic Vii863 BUN 22 mg/dL 11/09/2014 Comp Metabolic Esc188 B/C Ratio 27.5 Ratio 11/09/2014 Comp Metabolic Xtl526 CALCIUM 8.6 mg/dL 11/09/2014 Comp Metabolic Agq723 ALK PHOS 55 U/L 11/09/2014 Comp Metabolic Zsq189 AST(SGOT) 27 U/L 11/09/2014 Comp Metabolic Daz442 ALT(SGPT) 18 U/L 11/09/2014 Comp Metabolic Orp512 BILI T 0.5 mg/dL 11/09/2014 Comp Metabolic Odg523 ALBUMIN 3.0 g/dL 11/09/2014 Comp Metabolic Onw129 TPRO 5.4 g/dL 11/09/2014 Comp Metabolic Vxy142 GLOB 2.4 g/dL 11/09/2014 Comp Metabolic Umw326 A/G Ratio 1.3 Ratio 11/09/2014 Comp Metabolic Zmz035 Osmo 265 mOsmo 11/09/2014 Magnesium Ord90 Mag [...] accomodation 03/03/2018 None Full Exam - General 1995 Ears/Nose/Throat oral cavity/pharynx/larynx Overall: oral mucosa clear 03/03/2018 None Full Exam - General 1995 Ears/Nose/Throat oral cavity/pharynx/larynx Overall: oropharyngeal mucosa clear 03/03/2018 None Full Exam - General 1995 Ears/Nose/Throat oral cavity/pharynx/larynx Overall: hypopharynx benign 03/03/2018 None Full Exam - General 1995 Ears/Nose/Throat oral cavity/pharynx/larynx Overall: no masses 03/03/2018 [...] lips 11/05/2016 None Full Exam - General 1995 Ears/Nose/Throat lips/teeth/gingiva Overall: normal dentition 11/05/2016 None [...] Procedure Codes Date THER/PROPH/DIAG INJ SC/IM CPT-4: 64588 04/21/2018 PROMETHAZINE HCL INJECTION CPT-4: J2550 04/21/2018 DRAIN/INJECT JOINT/BURSA CPT-4: 25826 08/21/2017 DRAIN/INJECT JOINT/BURSA CPT-4: 28472 08/12/2017 TRIAMCINOLONE ACET INJ NOS CPT-4: J3301 08/12/2017 DRAIN/INJECT JOINT/BURSA CPT-4: 14773 08/05/2017 TRIAMCINOLONE ACET INJ NOS CPT-4: J3301 08/05/2017 DRAIN/INJECT JOINT/BURSA CPT-4: 78723 07/23/2017 DRAIN/INJECT JOINT/BURSA CPT-4: 79409 07/09/2017 TRIAMCINOLONE ACET INJ NOS CPT-4: J3301 07/09/2017 PRESCRIP TRANSMIT VIA ERX SY CPT-4: G8553 07/09/2017 DRAIN/INJECT JOINT/BURSA CPT-4: 98003 07/01/2017 TRIAMCINOLONE ACET INJ NOS CPT-4: J3301 07/01/2017 PRESCRIP TRANSMIT VIA ERX SY CPT-4: G8553 07/01/2017 DRAIN/INJECT JOINT/BURSA CPT-4: 26534 06/17/2017 DRAIN/INJECT JOINT/BURSA CPT-4: 11205 04/02/2017 TRIAMCINOLONE ACET INJ NOS CPT-4: J3301 04/02/2017 DRAIN/INJECT JOINT/BURSA CPT-4: 17290 02/06/2017 ADMIN INFLUENZA VIRUS VAC CPT-4: G0008 12/08/2016 FLU VACC PRSV FREE INC ANTIG CPT-4: 06661 12/08/2016 PRESCRIP TRANSMIT VIA ERX SY CPT-4: G8553 12/08/2016 PRESCRIP TRANSMIT VIA ERX SY CPT-4: G8553 11/17/2016 TRIAMCINOLONE ACET INJ NOS CPT-4: J3301 10/02/2016 TRIAMCINOLONE ACET INJ NOS CPT-4: J3301 09/12/2016 DRAIN/INJECT JOINT/BURSA CPT-4: 14879 09/08/2016 TRIAMCINOLONE ACET INJ NOS CPT-4: J3301 09/08/2016 PRESCRIP TRANSMIT VIA ERX SY CPT-4: G8553 08/26/2016 PRESCRIP TRANSMIT VIA ERX SY CPT-4: G8553 08/18/2016 ADMIN INFLUENZA VIRUS VAC CPT-4: G0008 11/19/2015 FLU VACC PRSV FREE INC ANTIG Formatting Model/CDA Sections, Assigned to/Luanne Elaine CPT-4: 56092Tfcfhfn 11/19/2015 PRESCRIP TRANSMIT VIA ERX SY CPT-4: G8553 09/04/2015 PRESCRIP TRANSMIT VIA ERX SY CPT-4: G8553 2015 PRESCRIP TRANSMIT VIA ERX SY CPT-4: G8553 07/18/2015 PRESCRIP TRANSMIT VIA ERX SY CPT-4: G8553 07/02/2015 REMOVE IMPACTED EAR WAX UNI CPT-4: 07530 04/09/2015 PRESCRIP TRANSMIT VIA ERX SY CPT-4: G8553 02/08/2015 ADMIN INFLUENZA VIRUS VAC CPT-4: G0008 01/10/2015 FLU VACC PRSV FREE INC ANTIG Formatting Model/CDA Sections, Assigned to/Luanne Elaine CPT-4: 76277Wpncnnd 01/10/2015 ADMIN PNEUMOCOCCAL VACCINE Formatting Model/CDA Sections, Assigned to SNOMED CT: 14866649 CPT-4: N6498Vpbolqc 12/11/2014 PNEUMOCOCCAL VACC [address]: 33163819 CPT-4: 76992 12/11/2014 Vital Signs Date Vital 05/10/2018 Blood [...] Code : 8480-6 BMI: 23.5 Code : 27295-7 Heart Rate 1 : 58 bpm Height: 5'8" SpO2: 96% Weight: 152 lbs 11/30/2017 Blood Pressure 1: 122/70 Code : 8480-6 Heart Rate 1: 105 bpm Height: 5'8" SpO2: 98% Weight: 11/27/2017 Blood Pressure 1: 148/76 Code : 8480-6 Heart Rate 1: 72 bpm Height: 5'8" SpO2: 99% Weight: 11/10/2017 Blood Pressure 1: 130/76 Code : 8480-6 BMI: 27.3 Code : 36331-2 Heart Rate 1 : 98 bpm Height: [...] Code : 8480-6 BMI: 24.7 Code : 28603-3 Heart Rate 1 : 100 bpm Height: 5'8" SpO2: 95% Weight: 160 lbs 08/31/2017 Blood Pressure 1: 128/78 Code : 8480-6 BMI: 23.6 Code : 48772-9 Heart Rate 1 : 102 bpm Height: 5'8" SpO2: 96% Weight: 153 lbs 08/21/2017 Blood Pressure 1: 138/78 Code : 8480-6 Heart Rate 1: 97 bpm SpO2: 95% Weight: 156 lbs 2 oz 08/12/2017 Blood Pressure 1: 138/74 Code : 8480-6 BMI: 25.0 Code : 02859-8 Heart Rate 1 : 94 bpm Height: 5'8" SpO2: 98% Weight: 162 lbs 08/05/2017 Blood Pressure 1: 126/78 Code : 8480-6 BMI: 25.8 Code : 21030-5 Heart Rate 1 : 74 bpm Height: 5'8" SpO2: 96% Weight: 167 lbs 07/23/2017 Blood Pressure 1: 106/64 Code : 8480-6 BMI: 25.3 Code : 07473-2 Heart Rate 1 : 81 bpm Height: 5'8" SpO2: 99% Weight: 163 lbs 14 oz 07/09/2017 Blood Pressure 1: 130/68 Code : 8480-6 Heart Rate 1: 82 bpm Height: 5'8" SpO2: 98% Weight: 07/01/2017 Blood Pressure 1: 124/76 Code : 8480-6 BMI: 26.5 Code : 42764-2 Heart Rate 1 : 99 bpm Height: 5'8" SpO2: 98% Weight: 172 lbs 06/24/2017 Blood Pressure 1: 118/70 Code : 8480-6 Heart Rate 1: 103 bpm Height: 5'8" SpO2: 98% Weight: 06/17/2017 Blood Pressure 1: 110/64 Code : 8480-6 BMI: 25.0 Code : 57272-6 Heart Rate 1 : 73 bpm Height: 5'8" Weight: 162 lbs 06/01/2017 Blood Pressure 1: 158/84 Code : 8480-6 BMI: 24.4 Code : 17163-6 Heart Rate 1 : 94 bpm Height: 5'8" SpO2: 95% Weight: 158 lbs 04/02/2017 Blood Pressure 1: 164/80 Code : 8480-6 BMI: 23.1 Code : 35660-9 Heart Rate 1 : 76 bpm Height: 5'8" SpO2: 94% Weight: 150 lbs 03/12/2017 Blood Pressure 1: 130/74 Code : 8480-6 BMI: 23.0 Code : 61269-3 Heart Rate 1 : 92 bpm Height: 5'8" SpO2: 94% Weight: 149 lbs 02/06/2017 Height: Weight: 01/08/2017 Blood Pressure 1: 136/76 Code : 8480-6 BMI: 21.4 Code : 35609-4 Heart Rate 1 : 85 bpm Height: 5'8" SpO2: 98% Weight: 138 lbs 8 oz 12/08/2016 Blood Pressure 1: 132/66 Code : 8480-6 BMI: 22.2 Code : 01036-5 Heart Rate 1 : 106 bpm Height: 5'8" SpO2: 97% Weight: 144 lbs 11/17/2016 Blood Pressure 1: 146/80 Code : 8480-6 BMI: 22.4 Code : 94710-2 Heart Rate 1 : 100 bpm Height: 5'8" SpO2: 98% Weight: 145 lbs 11/10/2016 Blood Pressure 1: 122/62 Code : 8480-6 BMI: 22.2 Code : 07750-6 Height: 5'8" Weight: 144 lbs 11/05/2016 Blood Pressure 1: 146/80 Code : 8480-6 BMI: 22.2 Code : 13610-3 Heart Rate 1 : 77 bpm Height: 5'8" SpO2: 99% Weight: 144 lbs 10/07/2016 Blood Pressure 1: 132/68 Code : 8480-6 BMI: 22.8 Code : 69738-4 Heart Rate 1 : 90 bpm Height: 5'8" SpO2: 97% Weight: 148 lbs 10/02/2016 Blood Pressure 1: 166/86 Code : 8480-6 BMI: 22.8 Code : 45565-3 Heart Rate 1 : 96 bpm Height: 5'8" SpO2: 96% Weight: 148 lbs 09/12/2016 Blood Pressure 1: 130/86 Code : 8480-6 Height: Weight: 09/08/2016 Blood Pressure 1: 132/74 Code : 8480-6 BMI: 22.4 Code : 05106-1 Heart Rate 1 : 93 bpm Height: 5'8" SpO2: 99% Weight: 145 lbs 08/26/2016 Blood Pressure 1: 132/78 Code : 8480-6 BMI: 23.9 Code : 65695-2 Heart Rate 1 : 80 bpm Height: 5'8" SpO2: 94% Weight: 155 lbs 08/18/2016 Blood Pressure 1: 130/70 Code : 8480-6 BMI: 23.6 Code : 09556-7 Heart Rate 1 : 100 bpm Height: 5'8" SpO2: 94% Weight: 153 lbs 07/30/2016 Blood Pressure 1: 144/84 Code : 8480-6 BMI: 22.4 Code : 24770-4 Heart Rate 1 : 86 bpm Height: 5'8" SpO2: 97% Weight: 145 lbs 07/14/2016 Blood Pressure 1: 122/74 Code : 8480-6 BMI: 22.5 Code : 57339-4 Heart Rate 1 : 87 bpm Height: 5'8" SpO2: 97% Weight: 146 lbs 07/04/2016 Blood Pressure 1: 128/78 Code : 8480-6 BMI: 22.5 Code : 20877-9 Heart Rate 1 : 98 bpm Height: 5'8" Weight: 146 lbs 06/26/2016 Blood Pressure 1: 122/68 Code : 8480-6 BMI: 22.5 Code : 25784-5 Heart Rate 1 : 102 bpm Height: 5'8" SpO2: 98% Weight: 146 lbs 05/28/2016 Blood Pressure 1: 12268 Code : 8480-6 BMI: 22.4 Code : 66949-2 Heart Rate 1 : 89 bpm Height: 5'8" SpO2: 97% Weight: 145 lbs 03/18/2016 Blood Pressure 1: 132/66 Code : 8480-6 BMI: 22.8 Code : 91936-9 Heart Rate 1 : 96 bpm Height: 5'8" SpO2: 98% Weight: 148 lbs 01/29/2016 Blood Pressure 1: 122/66 Code : 8480-6 BMI: 22.2 Code : 08162-7 Heart Rate 1 : 90 bpm Height: 5'8" SpO2: 99% Weight: 144 lbs 01/01/2016 Blood Pressure 1: 148/82 Code : 8480-6 BMI: 22.5 Code : 17071-7 Heart Rate 1 : 82 bpm Height: 5'8" Weight: 146 lbs 11/19/2015 Blood Pressure 1: 140/74 Code : 8480-6 BMI: 23.7 Code : 57750-2 Heart Rate 1 : 79 bpm Height: 5'8" SpO2: 96% Weight: 153 lbs 8 oz 11/01/2015 Blood Pressure 1: 118/72 Code : 8480-6 Heart Rate 1: 90 bpm Height: 5'8" SpO2: 95% 09/04/2015 Blood Pressure 1: 136/72 Code : 8480-6 BMI: 23.1 Code : 30796-3 Heart Rate 1 : 97 bpm Height: 5'8" SpO2: 98% Weight: 149 lbs 8 oz 2015 Blood Pressure 1: 144/76 Code : 8480-6 BMI: 22.8 Code : 25900-1 Heart Rate 1 : 75 bpm Height: 5'8" SpO2: 97% Weight: 148 lbs 07/18/2015 Blood Pressure 1: 132/60 Code : 8480-6 BMI: 23.1 Code : 68634-3 Heart Rate 1 : 78 bpm Height: 5'8" Weight: 150 lbs 07/02/2015 Blood Pressure 1: 156/86 Code : 8480-6 BMI: 23.0 Code : 85955-2 Heart Rate 1 : 75 bpm Height: 5'8" SpO2: 99% Weight: 149 lbs 05/31/2015 Blood Pressure 1: 136/72 Code : 8480-6 BMI: 22.7 Code : 55567-4 Heart Rate 1 : 85 bpm Height: 5'8" SpO2: 97% Weight: 147 lbs 04/09/2015 Blood Pressure 1: 118/60 Code : 8480-6 BMI: 22.7 Code : 05592-2 Heart Rate 1 : 72 bpm Height: 5'8" SpO2: 95% Weight: 147 lbs 02/08/2015 Blood Pressure 1: 138/76 Code : 8480-6 BMI: 23.1 Code : 01569-8 Heart Rate 1 : 80 bpm Height: 5'8" SpO2: 98% Weight: 150 lbs 12/11/2014 Blood Pressure 1: 120/74 Code : 8480-6 BMI: 22.1 Code : 24489-9 Heart Rate 1 : 92 bpm Height: 5'8" SpO2: 96% Weight: 143 lbs 11/09/2014 Blood Pressure 1: 100/64 Code : 8480-6 BMI: 21.6 Code : 29148-5 Heart Rate 1 : 88 bpm Height: 5'8" Weight: 140 lbs 10/23/2014 Blood Pressure 1: 138/82 Code : 8480-6 BMI: 23.6 Code : 21199-1 Heart Rate 1 : 86 bpm Height: 5'8" Weight: 153 lbs 10/16/2014 Blood Pressure 1: 128/60 Code : 8480-6 BMI: 23.3 Code : 83604-9 Heart Rate 1 : 91 bpm Height: 5'8" SpO2: 99% Weight: 151 lbs 10/09/2014 Blood Pressure 1: 120/60 Code : 8480-6 BMI: 23.0 Code : 12509-5 Heart Rate 1 : 96 bpm Height: 5'8" SpO2: 97% Weight: 149 lbs 09/14/2014 Blood Pressure 1: 132/72 Code : 8480-6 BMI: 22.1 Code : 55483-3 Heart Rate 1 : 84 bpm Height: 5'8" SpO2: 97% Weight: 143 lbs 08/11/2014 Blood Pressure 1: 134/74 Code : 8480-6 BMI: 24.1 Code : 68515-4 Heart Rate 1 : 88 bpm Height: 5'8" Weight: 156 lbs 07/12/2014 Blood Pressure 1: 122/62 Code : 8480-6 BMI: 22.7 Code : 24236-4 Heart Rate 1 : 76 bpm Height: [...] Dr. Blancas in [place] and Neurosurgeon in [place] in the past neck pain Significant Medical Conditions spinal stenosis 07/12/2014 has osteoarthritis Advance Directives No Advance Directive data Encounters Encounter Performer Location Codes Date ( EST. PATIENT, LEVEL III Diagnosis: First degree hemorrhoids[ICD10: K64.0] Diagnosis: Other specified diseases of anus and rectum[ICD10: K62.89] Araceli Silva MD , [facility] CPT-4: 76014 05/10/2018 ([id number]) [id number] EST. 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 PATIENT, LEVEL III Diagnosis: Other specified intestinal infections[ICD10: A08.8] Diagnosis: Diarrhea, unspecified[ICD10: R19.7] [facility] CPT-4: 53377 04/21/2018 ([id number]) 35669 EST. PATIENT, LEVEL IV Diagnosis: Essential (primary) hypertension[ICD10: I10] Diagnosis: Hypo-osmolality and hyponatremia[ICD10: E87.1] Diagnosis: Chronic pain syndrome[ICD10: G89.4] Araceli Silva MD, [facility] CPT-4: 04464 03/03/2018 ([id number]) 80538 EST. PATIENT, LEVEL III Diagnosis: Cough[ICD10: R05] Diagnosis: Acute bronchitis, unspecified[ICD10: J20.9] Diagnosis: Chronic obstructive pulmonary disease, unspecified[ICD10: J44.9] Ila Silva MD, [facility] CPT-4: 68652 02/12/2018 ([id number]) 24399 EST. PATIENT, LEVEL IV Diagnosis: Chronic pain syndrome[ICD10: G89.4] Diagnosis: Cough[ICD10: R05] Diagnosis: Diarrhea, unspecified[ICD10: R19.7] Diagnosis: Generalized edema[ICD10: R60.1] Ila Silva MD, [facility] CPT-4: 45821 02/09/2018 ([id number]) 23958 EST. PATIENT, LEVEL III Diagnosis: Generalized edema[ICD10: R60.1] Diagnosis: Lymphedema, not elsewhere classified[ICD10: I89.0] Araceli Silva MD, [facility] CPT-4: 92670 01/14/2018 ([id number]) 88377 EST. PATIENT, LEVEL IV Diagnosis: Essential (primary) hypertension[ICD10: I10] Diagnosis: Generalized edema[ICD10: R60.1] Diagnosis: Chronic pain syndrome[ICD10: G89.4] Araceli Silva MD, [facility] CPT-4: 01820 12/24/2017 ([id number]) 95688 EST. PATIENT, LEVEL III Diagnosis: Lymphedema, not elsewhere classified[ICD10: I89.0] Araceli Silva MD, [facility] CPT-4: 16763 11/30/2017 ([id number]) 48546 EST. PATIENT, LEVEL III Diagnosis: Generalized edema[ICD10: R60.1] Ila Silva MD, [facility] CPT-4: 93845 11/27/2017 ([id number]) 91398 EST. PATIENT, LEVEL IV Diagnosis: Localized edema[ICD10: [...] in left shoulder[ICD10: M25.512] Araceli Silva MD, [facility] CPT-4: 93001 11/10/2017 ([id number]) 11928 EST. PATIENT, LEVEL IV Diagnosis: Localized edema[ICD10: [...] in left shoulder[ICD10: M25.512] Araceli Silva MD, [facility] CPT-4: 37047 10/29/2017 ([id number]) 09633 EST. PATIENT, LEVEL IV Diagnosis: Essential (primary) [...] Diagnosis: Localized edema[ICD10: R60.0] Araceli Silva MD, [facility] CPT- 4: 86867 10/20/2017 ([id number]) 46150 EST. 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 PATIENT, LEVEL IV Diagnosis: Primary osteoarthritis, left shoulder[ICD10: M19.012] Diagnosis: Pain in left shoulder[ICD10: M25.512] Diagnosis: Lymphedema, not elsewhere classified[ICD10: I89.0] Diagnosis: Localized edema[ICD10: R60.0] Diagnosis: Chronic atrial fibrillation[ICD10: I48.2] Araceli Silva MD, [facility] CPT-4: 05769 09/15/2017 ([id number]) 54929 EST. PATIENT, LEVEL III Diagnosis: Primary osteoarthritis, left shoulder[ICD10: M19.012] Diagnosis: Pain in left shoulder[ICD10: M25.512] Diagnosis: Hemarthrosis, left shoulder[ICD10: M25.012] Araceli Silva MD, [facility] CPT-4: 01691 08/31/2017 ([id number]) 65198 EST. 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 PATIENT, LEVEL III Diagnosis: Localized edema[ICD10: R60.0] Araceli Silva MD, [facility] CPT- 4: 42301 07/23/2017 ([id number]) 15242 EST. 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 PATIENT, LEVEL III Diagnosis: Chronic pain syndrome[ICD10: G89.4] Araceli Silva MD, [facility] CPT-4: 91271 06/24/2017 ([id number]) 66512 EST. 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 PATIENT, LEVEL III Diagnosis: Pain in left shoulder[ICD10: M25.512] Diagnosis: Hemarthrosis, right shoulder[ICD10: M25.011] Diagnosis: Hemarthrosis, left shoulder[ICD10: M25.012] Maricel Silva MD, [facility] CPT-4: 14522 06/01/2017 ([id number]) 85862 EST. PATIENT, LEVEL II Diagnosis: Pain in right shoulder[ICD10: M25.511] Diagnosis: Hemarthrosis, right shoulder[ICD10: M25.011] Araceli Silva MD, [facility] CPT-4: 00522 04/02/2017 ([id number]) 18338 EST. PATIENT, LEVEL IV Diagnosis: Chronic pain syndrome[ICD10: G89.4] Diagnosis: Rheumatoid arthritis without rheumatoid factor, right shoulder[ICD10 : M06.011] Diagnosis: Rheumatoid arthritis without rheumatoid factor, left shoulder[ICD10: M06.012] Araceli Silva MD, [facility] CPT-4: 90489 2017 ([id number]) 84404 EST. PATIENT, LEVEL IV Diagnosis: Primary osteoarthritis, right shoulder[ICD10: M19.011] Diagnosis: Chronic pain syndrome[ICD10: G89.4] Diagnosis: Essential (primary) hypertension[ICD10: I10] Diagnosis: Hypomagnesemia[ICD10: E83.42] Araceli Silva MD, [facility] CPT- 4: 00002 01/08/2017 ([id number]) 50410 EST. PATIENT, LEVEL IV Diagnosis: Encounter for immunization[ICD10: Z23] Diagnosis: Chronic pain syndrome[ICD10: G89.4] Diagnosis: Essential (primary) hypertension[ICD10: I10] Araceli Silva MD, [facility] CPT-4: 71097 12/08/2016 ([id number]) 15280 EST. PATIENT, LEVEL III Diagnosis: Urge incontinence[ICD10: N39.41] Diagnosis: Chronic pain syndrome[ICD10: G89.4] Diagnosis: Lymphedema, not elsewhere classified[ICD10: I89.0] Araceli Silva MD, [facility] CPT-4: 85938 11/17/2016 79865 EST. 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 PATIENT, LEVEL IV Diagnosis: Essential (primary) hypertension[ICD10: I10] Diagnosis: Other chronic pain[ICD10: G89.29] Diagnosis: Localized edema[ICD10: R60.0] Diagnosis: Urge incontinence[ICD10: N39.41] Araceli Silva MD, [facility] CPT-4: 11014 11/05/2016 ([id number]) 95225 EST. 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 PATIENT, LEVEL III Diagnosis: Hemarthrosis, right shoulder[ICD10: M25.011] Diagnosis: Pain in right shoulder[ICD10: M25.511] Ila Silva MD, [facility] CPT-4: 00605 10/02/2016 76117 EST. PATIENT, LEVEL II Diagnosis: Low back pain[ICD10: M54.5] Diagnosis: Sacroiliitis, not elsewhere classified[ICD10: M46.1] Ila Silva MD, [facility] CPT-4: 21748 09/12/2016 ([id number]) 14811 EST. PATIENT, LEVEL III Diagnosis: Hemarthrosis, right shoulder[ICD10: M25.011] Diagnosis: Other chronic pain[ICD10: G89.29] Araceli Silva MD, [facility] CPT-4: 05814 09/08/2016 ([id number]) 88714 EST. PATIENT, LEVEL IV Diagnosis: Other iron deficiency anemias[ICD10: D50.8] Diagnosis: Vitamin D deficiency, unspecified[ICD10: E55.9] Diagnosis: Hypomagnesemia[ICD10: E83.42] Araceli Silva MD [facility] CPT- 4: 65666 08/26/2016 ([id number]) 27797 EST. PATIENT, LEVEL III Diagnosis: Localized edema[ICD10: R60.0] Araceli Silva MD [facility] CPT- 4: 60967 08/18/2016 ([id number]) 79985 EST. 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 PATIENT, LEVEL IV Diagnosis: Pain in left shoulder[ICD10: M25.512] Diagnosis: Nocturia[ICD10: R35.1] Maricel Silva MD, [facility] CPT-4: 96216 07/14/2016 53744 EST. PATIENT, LEVEL III Diagnosis: Pain in left shoulder[ICD10: M25.512] Maricel Silva MD, [facility] CPT-4: 61217 07/04/2016 ([id number]) 08627 EST. 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 PATIENT, LEVEL II Diagnosis: Insect bite (nonvenomous) of right upper arm, initial encounter[ICD10 : S40.861A] Ila Silva MD, [facility] CPT-4: 08656 11/01/2015 ([id number]) 67695 EST. 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 PATIENT, LEVEL III Diagnosis: Contusion of left upper arm, subsequent encounter[ICD10: S40.022D] Araceli Silva MD, [facility] CPT-4: 90215 2015 36005 EST. PATIENT, LEVEL III Diagnosis: Cellulitis of left upper limb[ICD10: L03.114] Maricel Silva MD, [facility] CPT-4: 10970 07/18/2015 94447 30077 EST. 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 PATIENT, LEVEL IV Diagnosis: Essential (primary) hypertension[ICD10: I10] Diagnosis: Vitamin D deficiency, unspecified[ICD10: E55.9] Diagnosis: Mixed hyperlipidemia[ICD10: E78.2] Diagnosis: Age-related osteoporosis with current pathological fracture, unspecified site, sequela[ICD10: M80.00XS] Araceli Silva MD, [facility] CPT- 4: 62575 02/08/2015 ([id number] 15409 EST. PATIENT, LEVEL IV Diagnosis: Essential (primary) hypertension[ICD10: I10] Diagnosis: Localized edema[ICD10: R60.0] Diagnosis: Primary osteoarthritis, unspecified site[ICD10: M19.91] Araceli Silva MD [facility] CPT-4: 21478 12/11/2014 ([id number]) 77637 EST. PATIENT, LEVEL III Diagnosis: EDEMA[ICD9: 782.3] Diagnosis: ESSENTIAL HYPERTENSION[ICD9: 401.9] Araceli Silva MD, [facility] CPT-4: 23103 11/09/2014 ([id number]) 68256 EST. PATIENT, LEVEL III Diagnosis: Leg pain[ICD9: 729.5] Diagnosis: Ulcer of toe[ICD9: 707.15] Araceli Silva MD [facility] CPT- 4: 82231 10/23/2014 ([id number]) 71963 EST. PATIENT, LEVEL III Diagnosis: Ulcer of toe[ICD9: 707.15] Araceli Silva MD [facility] CPT- 4: 18058 10/16/2014 21229 EST. PATIENT, LEVEL II Diagnosis: Ulcer of toe[ICD9: 707.15] Ila Silva MD [facility] CPT-4: 87683 10/09/2014 ([id number]) 03969 EST. PATIENT, LEVEL III Diagnosis: EDEMA[ICD9: 782.3] Araceli Silva MD [facility] CPT-4: 48745 09/14/2014 ([id number]) 49269 EST. PATIENT, LEVEL IV Diagnosis: EDEMA[ICD9: 782.3] Diagnosis: ESSENTIAL HYPERTENSION[ICD9: 401.9] Araceli Silva MD, [facility] CPT-4: 24061 08/11/2014 ([id number]) OFFICE VISIT, NEW - LEVEL 4 Diagnosis: HYPERLIPIDEMIA[ICD9: 272.4] Diagnosis: VITAMIN D DEFICIENCY[ICD9: 268.9] Diagnosis: Osteoporosis[ICD9: 733.00] Diagnosis: Esophageal reflux[ICD9: 530.81] Diagnosis: Chronic pain[ICD9: 338.29] Araceli Silva MD, [facility] CPT- 4: 20229 07/12/2014 Plan of Care Planned Activity Notes Codes Status Date Visit Plan: Melena - hemorrhoidal tissue- discussed with pt and her daughter - rx for proctofoam and suppositories given to patient - they will pickle solution maker the RX that is 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 Avoid straining when having bowel movements. Monitor symptoms closely. 05/10/2018 Appointment: Araceli Silva WPtel: [address] [place] [address] (15 min) Moderate 05/10/2018 Patient Education: Patient [...] of miralax. 05/04/2018 Appointment: Araceli Silva WPtel: [address] [place] [address] (15 min) Moderate 05/04/2018 Patient Education: Patient Medication Summary Completed 05/04/2018 Appointment: Araceli Silva WPtel: [address] [place] [address] (15 min) Moderate 05/03/2018 Visit Plan: Gastroenteritis [...] stomach pain. 04/21/2018 Appointment: [phone] [place] (30 min) Complex 04/21/2018 Patient Education: Patient [...] with fentanyl 03/03/2018 Appointment: Araceli Silva WPtel: [address] [facility] (15 min) Moderate 03/03/2018 Patient Education: Patient [...] - will send rx to [facility] 02/12/2018 Appointment: Ila Kennedy WPtel: [phone] [phone] (30 min) Complex 02/12/2018 Patient Education: Patient Medication Summary Completed 02/12/2018 Visit Plan: Chronic Pain Syndrome - pt has chronic pain - has been maintained on current medications, has not sought out other medications , only uses PRN pain medications as directed, and understands the consequences of over-medication. Dycfg-tnrhtdpwom-bmvitghd with lasix/metolazone -if swelling /weight increase, okay to increase metolazone to daily as directed Cough- okay for robitussin dm Diarrhea- rx for lomotil written and instructed on use-follow up in 3 weeks, sooner if needed. Call with any concerns. 02/09/2018 Appointment: Ila Kennedy [facility]el[facility] [phone] [place] (30 min) Complex 02/09/2018 Patient Education: Patient Medication Summary Completed 02/09/2018 [facility]ment: [phone] [place] (15 min) Moderate 02/04/2018 Visit Plan: [...] of over-medication. 01/14/2018 Appointment: [phone] [place] (15 min) Moderate 01/14/2018 Patient Education: Patient [...] oxycodone scheduled. 12/24/2017 Appointment: [phone] [place] (30 min) Complex 12/24/2017 Patient Education: [...] output. 11/30/2017 Appointment: [phone] [facility] (15 min) Moderate 11/30/2017 Patient Education: [...] of over-medication. 11/10/2017 Appointment: [phone] [facility] (15 min) Moderate 11/10/2017 Patient Education: [...] severe RA of hands/fingers. We will contact [employer] in [place] for paperwork regarding the scooter. 10/29/2017 Appointment: [facility] Silva [phone] [facility] (15 min) Moderate 10/29/2017 Patient Education: [...] time. 10/20/2017 Appointment: [phone] [facility] [place] (30 min) Complex 10/20/2017 Patient [...] drained today. 09/29/2017 Appointment: Araceli Silva WPtel: [address] [place], [place] [address] (15 min) Moderate 09/29/2017 Patient Education: Patient [...] Completed 08/21/2017 Appointment: [phone] [facility] [place] (15 min) Moderate 08/20/2017 Visit Plan: Hemarthrosis shoulders - 250mL from left shoulder and 100mL from right shoulder with 1ml kenalog injected into right and left shoulders - Left and right shoulder pain and swelling, swelling into arms and left breast -pt to continue with use of compression sleeves. [id number] sep 2018 bristol 2ml kenalog 08/12/2017 Appointment: [facility] Silva [phone] [facility] (15 min) Moderate 08/12/2017 Patient Education: [...] peripheral edema. 08/05/2017 Appointment: [phone] [facility] (15 min) Moderate 08/05/2017 Patient Education: Patient [...] peripheral edema. 07/23/2017 Appointment: Araceli Silva WPtel: [address] [place], [place] [address] (15 min) Moderate 07/23/2017 Patient Education: Patient [...] monitor symptoms. 07/09/2017 Appointment: Araceli Silva WPtel: [address] [place], [place] [phone] (15 min) Moderate 07/09/2017 Patient Education: Patient Medication Summary Completed 07/09/2017 Referral: [facility] WPtel: Referral Initiated 07/08/2017 Visit [...] monitor symptoms. 07/01/2017 Appointment: [facility] Silva [phone] [facility] (15 min) Moderate 07/01/2017 Patient Education: Patient Medication Summary Completed 07/01/2017 Visit Plan: Chronic Pain Syndrome - pt has chronic pain - has been maintained on current medications, has not sought out other medications , only uses PRN pain medications as directed, and understands the consequences of over-medication. 06/24/2017 Appointment: [facility] Silva [phone] [facility] (15 min) Moderate 06/24/2017 Patient Education: Patient [...] edema. 06/17/2017 Appointment: [phone] (30 min) Complex 06/17/2017 Patient Education: Patient Medication Summary Completed 06/17/2017 Appointment: [phone] (15 min) Moderate 06/08/2017 Care Plan: Referral Order SNOMED-CT : [id number] Pending 06/02/2017 Visit Plan: Left and right [...] edema. 06/01/2017 Appointment: Maricel Gee [facility]Ptel: [phone] [place] [place] (30 min) Complex 06/01/2017 Patient Education: [...] shoulder 04/02/2017 Appointment: Araceli Silva WPtel: [phone] [facility] [place] (15 min) Moderate 04/02/2017 Patient [...] upset. 03/12/2017 Appointment: [facility] Silva [facility] [place] (15 min) Moderate 03/12/2017 Patient [...] - on face, check ROMIE. 01/08/2017 Appointment: Arcaeli Silva WPtel: [facility] (15 min) Moderate 01/08/2017 Patient Education: Patient [...] with Remicaide. 12/08/2016 Appointment: Araceli Silva WPtel: [facility] (15 min) Moderate 12/08/2016 Patient Education: Patient [...] for now 11/17/2016 Appointment: Araceli Silva WPtel: [facility] (15 min) Moderate 11/17/2016 Patient Education: [...] over-medication. 11/10/2016 Appointment: Maricel Gee WPtel: [phone] [facility] (30 min) Complex 11/10/2016 Patient Education: [...] immunosuppression. 11/05/2016 Appointment: Araceli Silva WPtel: [phone] [facility] (15 min) Moderate 11/05/2016 Patient Education: [...] today. 10/07/2016 Appointment: Araceli Silva WPtel: [phone] [facility] (15 min) Moderate 10/07/2016 Patient Education: Patient Medication Summary Completed 10/07/2016 Care Plan: Referral Order SNOMED-CT : [id number] Pending 10/07/2016 Care Plan: Referral Order SNOMED-CT : [id number] Pending 10/07/2016 Visit Plan: Hemarthrosis -right shoulder-only able to drain 5ml of bloody drainage-unable to give oral steroids due to recent GI bleed -will give kenalog injection today in the office-discussed getting OSMO patch 10/02/2016 Appointment: Ila Kennedy WPtel: [facility] [phone] [place] (30 min) Complex 10/02/2016 Patient Education: Patient Medication Summary Completed 10/02/2016 Appointment: Araceli Silva WPtel: [facility] [place] (15 min) Moderate 09/23/2016 Appointment: Araceli Silva WPtel: [facility] [place] (15 min) Moderate 09/17/2016 Visit Plan: Sacroiliitis - back exercises discussed with the patient, pt to continue with anti-inflammatories. Pt is to call if the symptoms do not improve or if they worsen. Kenalog injection today in the office. 09/12/2016 Appointment: Ila Kennedy WPtel: [facility] [phone] [place] (15 min) Moderate 09/12/2016 Patient Education: [...] Injection of kenalog 1mL - 40mg - [employer] - lot #[id number] , expires oct 2017 Chronic Pain Syndrome - pt has chronic pain - has been maintained on current medications, has not sought out other medications, only uses PRN pain medications as directed, and understands the consequences of over-medication. 09/08/2016 Appointment: Araceli Silva WPtel: [address] [place] [address] (15 min) Moderate 09/08/2016 Patient Education: Patient [...] magnesium level 08/26/2016 Appointment: Araceli Silva WPtel: [facility]6 [facility] (15 min) Moderate 08/26/2016 Patient Education: Patient [...] Summary Completed 08/18/2016 Appointment: Araceli Silva WPtel: [facility] (15 min) Moderate 08/13/2016 Appointment: Araceli Silva WPtel: [address] [place], [place] [address] (15 min) Moderate 08/06/2016 Visit [...] the daytime. 07/30/2016 Appointment: Araceli Silva WPtel: [facility] (15 min) Moderate 07/30/2016 Patient Education: Patient Medication Summary Completed 07/30/2016 Visit Plan: Left shoulder pain - improving - pt is to notify clinic if symptoms do not improve, if they worsen, or with any questions or concerns. Nocturia - will give samples, pt is to notify clinic if symptoms do not improve. 07/14/2016 Appointment: Maricel Gee WPtel: [facility] (30 min) Complex 07/14/2016 Patient Education: [...] any dyspnea. 07/04/2016 Appointment: Maricel Gee WPtel: [facility] (30 min) Complex 07/04/2016 Patient Education: Patient [...] over- medication. 06/26/2016 Appointment: Araceli Silva WPtel: [facility] (15 min) Moderate 06/26/2016 Patient Education: Patient [...] over-medication. 05/28/2016 Appointment: Araceli Silva WPtel: [phone] [facility] [place] (15 min) Moderate 05/28/2016 Patient Education: Patient Medication Summary Completed 05/28/2016 Patient Education: Hypertension Completed 05/28/2016 Appointment: Araceli Silva WPtel: [address] [facility] [place] (15 min) Moderate 05/12/2016 Appointment: Araceli Silva WPtel: [address] [facility] [place] (15 min) Moderate 04/15/2016 Appointment: [facility] [place] (30 min) Complex 03/25/2016 Visit [...] the premarin. 03/18/2016 Appointment: [facility] [place] (30 min) Complex 03/18/2016 Patient Education: Patient Medication Summary Completed 03/18/2016 Appointment: [facility] (15 min) Moderate 02/19/2016 Visit Plan: Hypertension [...] of over-medication. 01/29/2016 Appointment: Araceli Silva WPtel: [facility] (15 min) Moderate 01/29/2016 Patient Education: Patient Medication Summary Completed 01/29/2016 Visit Plan: Discussed MRI of the neck - pt is interested in doing this - however, not prior to changing her medication first to see if this helps her pain 01/01/2016 Appointment: Araceli Silva WPtel: [facility] (15 min) Moderate 01/01/2016 Patient Education: Patient Medication Summary Completed 01/01/2016 Patient Education: Hypertension Completed 01/01/2016 Appointment: Araceli Silva WPtel: [facility] (15 min) Moderate 12/03/2015 Visit Plan: Chronic [...] or nonhealing. 11/01/2015 Appointment: Ila Kennedy WPtel: [phone] (15 min) Moderate 11/01/2015 Patient Education: Patient Medication Summary Completed 11/01/2015 Visit Plan: Chronic Pain Syndrome - pt has chronic pain - has been maintained on current medications, has not sought out other medications , only uses PRN pain medications as directed, and understands the consequences of over-medication. Muscle spasms - recommended muscle rub. 09/04/2015 Appointment: Araceli Silva WPtel: [facility] (15 min) Moderate 09/04/2015 Patient Education: Patient Medication Summary Completed 09/04/2015 Visit Plan: Ecchymosis/hematoma - improving - discussed natural progression of hematomas - watchful waiting. 2015 Appointment: Araceli Silva WPtel: [address] [place], [place] [phone] (15 min) Moderate 2015 Patient Education: Patient Medication Summary Completed 2015 Visit Plan: Cellulitis - continue with oral antibiotics as previously directed, return to clinic as previously directed, call for acute change in symptoms, worsening redness, warmth, discharge. 07/18/2015 Appointment: Ila Kennedy WPtel: [phone] [place] (30 min) Complex 07/18/2015 Patient [...] center/surgery center. 07/02/2015 Appointment: [facility] Silva [facility]Ptel: [facility] [place] (15 min) Moderate 07/02/2015 Patient [...] ambulation. 04/09/2015 Appointment: Araceli Silva WPtel: [address] [facility] (15 min) Moderate 04/09/2015 Patient Education: [...] supplementation. 02/08/2015 Appointment: Araceli Silva WPtel: [address] [facility] (15 min) Moderate 02/08/2015 Patient Education: [...] the evening. 12/11/2014 Appointment: Araceli Silva WPtel: [facility] (15 min) Moderate 12/11/2014 Patient Education: Patient [...] - improved. 11/09/2014 Appointment: [facility]el[facility] (15 min) Moderate 11/09/2014 Patient Education: Patient Medication Summary Completed 11/09/2014 Patient Education: Hypertension Completed 11/09/2014 Visit Plan: Leg pain/cellulitis of leg - start on the doxycycline twice daily - take this x 2 weeks, if the symptoms in your leg/ thigh are not completely resolved, there is a refill that is available. start on a probiotic one pill daily ([employer] or [employer]) this will help prevent the development of a bad type of diarrhea that can occur when taking antibiotics. Ulcer of toe - improving. 10/23/2014 Appointment: Araceli Silva WPtel: [facility] (15 min) Moderate 10/23/2014 Patient Education: Patient Medication Summary Completed 10/23/2014 Visit Plan: Ulcer - keep lesion covered, antibiotic ointment to be used, monitor - call if redness increases or starts streaking up the foot. 10/16/2014 Appointment: Araceli Silva WPtel: [id number] (15 min) Moderate 10/16/2014 Patient Education: Patient [...] peripheral edema. 09/14/2014 App[facility]ment: [id number] [facility] 09/14/2014 Patient Education: Patient [...] medication. 07/12/2014 App[facility]ment: [id number] [id number] [place] [facility] New Patient 07/12/2014 Patient Education: Patient Medication Summary Completed 07/12/2014 Patient Education: Hypertension Completed 07/12/2014 Referral: Dr Virgen Referral Completed Referral: External, Ordering Provider Referral Completed Referral: [facility] WPtel: Referral Initiated Instructions Comment . Hemarthrosis - pt was prepped and [...] start on a probiotic one pill daily (Kirondo or Just[employer]) this will help prevent the development of a bad type of diarrhea that can occur when taking antibiotics. . Leg pain/cellulitis of leg - start on the doxycycline twice daily - take this x 2 weeks, if the symptoms in your leg/thigh are not completely resolved, there is a refill that is available. start on a probiotic one pill daily (Sighterlle or JustBook) this will help prevent the development of [...] Injection of kenalog 1mL - 40mg - [employer] - lot #[id number] , expires oct 2017 Chronic Pain Syndrome [...] an extra 1/2 teaspoon of miralax. . Hemarthrosis -right shoulder-only able to drain [...] hands/fingers. We will contact [facility] in [place] for paperwork regarding the scooter. . Hypertension [...] -will send rx to [facility] . Rheumatoid arthritis of shoulders, Severe edema [...] scheduled. Patient verbalized understanding of plan. . Discussed MRI of the neck - pt is interested in doing this - however, not prior to changing her medication first to see if this helps her pain . Hemarthrosis shoulders - 250mL from left shoulder and 100mL from right shoulder with 1ml kenalog injected into right and left shoulders - Left and right shoulder pain and swelling, swelling into arms and left breast -pt to continue with use of compression sleeves. [id number] sep 2018 bristol 2ml kenalog . Edema/Lymphedema [...] suppositories given to patient - they will pickle solution maker the RX that is least [...] directed, and understands the consequences of over-medication. Rycye-[id number] with lasix/metolazone -if swelling/weight increase, okay to [...] office. two old goats muscle rub from [employer] and home. . Chronic Pain Syndrome - pt has chronic pain - has been maintained on current medications, has not sought out other medications, only uses PRN pain medications as directed, and understands the consequences of over-medication. Muscle spasms - recommended muscle rub. next mammogram will be due in Oct. [...] medication. Anemia - check cbc today. . Chronic Pain Syndrome - pt has chronic pain - has been maintained on current medications, has not sought out other medications, only uses PRN pain medications as directed, and understands the consequences of over- medication. Osteoporosis - prolia injections to be ordered for the pt through the cancer center/surgery center. . Left and right shoulder pain and [...]
--- OUTSIDE RECORDS SUMMARY | 2018-06-03 15:50 | XMS REPORT | CCD ---
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 Name Role Phone PP Unavailable CCM Unavailable Summary Purpose Interface Exchange Insurance Providers Payer name Policy type / Coverage type Covered republican ID Effective Begin Date Effective End Date [place] [employer] Medicare Part B [id number] 2017 Unknown AETNA Medicare Part B [id number] Unknown Family history Father Diagnosis Age At [...] Unknown Retired 07/12/[address]: 4199003 Quit over 10 years ago 1967 07/12/2014 [...] Start Date Stop Date Status Fill Instructions Lasix 40 mg tablet RxNorm: 189638 1 Tablet(s) PO BID 201807/10/2018 Active Proctocort 30 mg rectal suppository RxNorm: 1968898 1 Suppository RTL daily x 1 wk then daily prn hemorrhoids 05/10/2018 No Stop Date Active fentanyl 100 mcg/hr transdermal patch RxNorm: 138520 1 Patch TD Q72H 05/07/2018 06/05/2018 Active prednisone 10 mg tablet RxNorm: 368464 1 Tablet(s) PO UD 2 tabs daily x 1 week then decrease to 1 pill daily x 1 week then go back to 5mg daily 05/04/2018 05/24/2018 Active gabapentin 100 mg capsule RxNorm: 472993 1 Capsule(s) PO at bedtime x 1 week then increase up to one pill twice daily x 1 wk then TID thereafter 05/04/2018 08/31/2018 Active ondansetron 4 mg disintegrating tablet RxNorm: 037084 1 Tablet(s) PO TID as needed nausea and vomitting 04/21/2018 Active promethazine 25 mg tablet RxNorm: 411572 1 Tablet(s) PO TID as needed nausea and vomitting 04/21/2018 05/20/2018 Active promethazine 25 mg/mL injection solution RxNorm: 436492 Milliliter(s) Inj 04/21/2018 04/21/2018 Inactive ondansetron 4 mg disintegrating tablet RxNorm: 786747 1 Tablet(s) PO TID as needed nausea and vomitting 04/21/2018 Inactive promethazine 25 mg tablet RxNorm: 262524 1 Tablet(s) PO TID as needed nausea and vomitting 04/21/2018 04/25/2018 Inactive metolazone 10 mg tablet RxNorm: 427054 1 Tablet(s) PO every other day uncontrolled edema 04/08/2018 12/03/2018 Active fentanyl 100 mcg/hr transdermal patch RxNorm: 102650 1 Patch TD Q72H use with 25mcg/hr patch 04/07/2018 05/06/2018 Inactive fentanyl 25 mcg/hr transdermal patch RxNorm: 827324 1 Patch TD Q72H use with 100mcg patch for a total of 125mcg daily 04/07/2018 05/03/2018 Inactive potassium chloride ER 10 mEq tablet,extended release(part/ cryst) RxNorm: 3304255 2 Tablet(s) PO TID 03/30/2018 07/27/2018 Active oxycodone 30 mg tablet RxNorm: 9346369 1/2 Tablet(s) PO Q6 05/15/2018 Active fentanyl 25 mcg/hr transdermal patch RxNorm: 356730 1 Patch TD Q72H use with 100mcg patch for a total of 125mcg daily 03/17/2018 04/06/2018 Inactive Lasix 40 mg tablet RxNorm: 183150 Tablet(s) PO TAKE 1 TABLET BY MOUTH TWICE DAILY 03/04/2018 05/11/2018 Inactive fentanyl 100 mcg/hr transdermal patch RxNorm: 858287 1 Patch TD Q72H use with 25mcg/hr patch 03/03/2018 04/01/2018 Inactive potassium chloride ER 10 mEq capsule,extended release RxNorm: 190818 2 Capsule(s) PO TID 03/03/2018 03/29/2018 Inactive albuterol sulfate 2.5 mg/3 mL (0.083 %) solution for nebulization RxNorm: 450462 3 Milliliter(s) INH Q4 PRN 02/18/2018 No Stop Date Active cefdinir 300 mg capsule RxNorm: 332883 1 Capsule(s) PO BID 02/24/2018 Inactive cefdinir 300 mg capsule RxNorm: 398110 1 Capsule(s) PO BID 02/17/2018 Inactive Flonase Allergy Relief 50 mcg/actuation nasal spray, suspension RxNorm: 1092769 2 [place] NASAL daily 02/12/20182017 Inactive Zithromax Z-Humberto 250 mg tablet RxNorm: 782703 1 Tablet(s) PO UD 02/12/2018 02/16/2018 Inactive Lomotil 2.5 mg-0.025 mg tablet RxNorm: 4243929 1 Tablet(s) PO BID PRN 02/09/2018 No Stop Date Active fentanyl 25 mcg/hr transdermal patch RxNorm: 439812 1 Patch TD Q72H use with 100mcg patch for a total of 125mcg daily 02/09/2018 03/10/2018 Inactive oxycodone 30 mg tablet RxNorm: 7815737 1/2 Tablet(s) PO Q6 03/14/2018 Inactive metolazone 10 mg tablet RxNorm: 294756 1 Tablet(s) PO QAM as needed uncontrolled edema 01/14/2018 03/14/2018 Inactive fentanyl 100 mcg/hr transdermal patch RxNorm: 999456 1 Patch TD Q72H use with 25mcg/hr patch 01/14/2018 02/12/2018 Inactive fentanyl 25 mcg/hr transdermal patch RxNorm: 689856 1 Patch TD Q72H use with 100mcg patch for a total of 125mcg daily 01/14/2018 02/08/2018 Inactive metolazone 10 mg tablet RxNorm: 237044 1 Tablet(s) PO every other day as needed uncontrolled edema 01/07/2018 01/13/2018 Inactive metolazone 10 mg tablet RxNorm: 327193 1 Tablet(s) PO every other day as needed uncontrolled edema 01/07/2018 01/06/2018 Inactive Cipro 500 mg tablet RxNorm: 913722 1 Tablet(s) PO BID 201701/05/2018 Inactive Cipro 500 mg tablet RxNorm: 447359 1 Tablet(s) PO BID 201701/15/2018 Inactive Cardizem CD 360 mg capsule,extended release RxNorm: 609406 1 Capsule(s) PO daily 01/05/2018 05/04/2018 Inactive potassium chloride ER 10 mEq tablet,extended release(part/ cryst) RxNorm: 3689365 2 Capsule(s) PO TID when taking lasix 01/05/2018 05/04/2018 Inactive potassium chloride ER 10 mEq capsule,extended release RxNorm: 968367 Capsule(s) TAKE 1 CAPSULE BY MOUTH TWICE DAILY WHEN TAKING LASIX (FUROSEMIDE) 11/27/2017 03/02/2018 Inactive potassium chloride ER 10 mEq capsule,extended release RxNorm: 754211 Capsule(s) TAKE 1 CAPSULE BY MOUTH TWICE DAILY WHEN TAKING LASIX (FUROSEMIDE) 11/27/2017 11/26/2017 Inactive fentanyl 25 mcg/hr transdermal patch RxNorm: 182533 1 Patch TD Q72H use with 100mcg patch for a total of 125mcg daily 11/27/2017 12/26/2017 Inactive bumetanide 0.5 mg tablet RxNorm: 452388 1 Tablet(s) PO daily 12/23/2017 Inactive in the afternoon x 3 days then as needed per Dr Silva fentanyl 100 mcg/hr transdermal patch RxNorm: 877771 1 Patch TD Q72H use with 25mcg/hr patch 11/27/2017 12/26/2017 Inactive oxycodone 30 mg tablet RxNorm: 9925707 1/2 Tablet(s) PO Q6 12/27/2017 Inactive fentanyl 100 mcg/hr transdermal patch RxNorm: 528461 1 Patch TD Q72H use with 25mcg/hr patch 10/29/2017 11/26/2017 Inactive Lasix 20 mg tablet RxNorm: 633522 TAKE 1 TABLET BY MOUTH TWICE DAILY 10/29/2017 03/03/2018 Inactive fentanyl 25 mcg/hr transdermal patch RxNorm: 737493 1 Patch TD Q72H use with 100mcg patch for a total of 125mcg daily 10/29/2017 11/26/2017 Inactive pantoprazole 40 mg tablet,delayed release RxNorm: 986638 Tablet(s) Take 1 tablet by mouth daily 10/21/2017 04/18/2018 Inactive - Ref: [id number] potassium chloride ER 10 mEq capsule,extended release RxNorm: 182102 TAKE 1 CAPSULE BY MOUTH TWICE DAILY WHEN TAKING LASIX (FUROSEMIDE) 10/09/2017 11/26/2017 Inactive fentanyl 25 mcg/hr transdermal patch RxNorm: 489095 1 Patch TD Q72H use with 100mcg patch for a total of 125mcg daily 10/01/2017 10/28/2017 Inactive fentanyl 100 mcg/hr transdermal patch RxNorm: 527305 1 Patch TD Q72H use with 25mcg/hr patch 10/01/2017 10/28/2017 Inactive potassium chloride ER 10 mEq tablet,extended release(part/ cryst) RxNorm: 5239372 1 Capsule(s) PO BID when taking lasix 09/22/2017 01/04/2018 Inactive fentanyl 100 mcg/hr transdermal patch RxNorm: 210562 1 Patch TD Q72H use with 25mcg/hr patch 08/31/2017 09/29/2017 Inactive Kenalog 40 mg/mL suspension for injection RxNorm: 3577167 1 Milliliter(s) Inj 08/31/2017 08/31/2017 Inactive fentanyl 25 mcg/hr transdermal patch RxNorm: 765423 1 Patch TD Q72H use with 100mcg patch for a total of 125mcg daily 08/31/2017 09/29/2017 Inactive oxycodone 30 mg tablet RxNorm: 5529745 1/2 Tablet(s) PO Q6 04/201710/28/2017 Inactive cyanocobalamin (vit B-12) 1,000 mcg/mL injection solution RxNorm: 767934 1 Milliliter(s) Inj monthly 08/21/201708/15 Active please provide her with syringe/needle for injection cyanocobalamin (vit B-12) 1,000 mcg/mL injection solution RxNorm: 674394 1 Milliliter(s) Inj monthly 08/21/201708/20 Inactive please provide her with syringe/needle for injection Kenalog 40 mg/mL suspension for injection RxNorm: 1608865 2 Milliliter(s) Inj 1mL in each shoulder 08/21/2017 08/21/2017 Inactive cyanocobalamin (vit B-12) 1,000 mcg/mL injection solution RxNorm: 503934 1 Milliliter(s) Inj monthly 08/21/201708/20 Inactive please provide her with syringe/needle for injection Kenalog 40 mg/mL suspension for injection RxNorm: 6440341 2 Milliliter(s) Inj UD 08/12/2017 08/12/2017 Inactive fentanyl 25 mcg/hr transdermal patch RxNorm: 343385 1 Patch TD Q72H use with 100mcg patch for a total of 125mcg daily 08/05/2017 08/30/2017 Inactive fentanyl 100 mcg/hr transdermal patch RxNorm: 613858 1 Patch TD Q72H use with 25mcg/hr patch 08/05/2017 08/30/2017 Inactive Kenalog 40 mg/mL suspension for injection RxNorm: 8997653 2 Milliliter(s) Inj 1mL per shoulder 08/05/2017 08/05/2017 Inactive clindamycin HCl 150 mg capsule RxNorm: 262685 1 Capsule(s) PO QID Dr Shultz prescribed 07/23/2017 07/29/2017 Inactive prednisone 5 mg tablet RxNorm: 338464 1 Tablet(s) PO daily 11/201707/03/2018 Active fentanyl 25 mcg/hr transdermal patch RxNorm: 873939 1 Patch TD Q72H use with 100mcg patch for a total of 125mcg daily 07/01/2017 07/30/2017 Inactive Lasix 20 mg tablet RxNorm: 562903 1 Tablet(s) PO BID 201710/28/2017 Inactive fentanyl 100 mcg/hr transdermal patch RxNorm: 794401 1 Patch TD Q72H use with 25mcg/hr patch 07/01/2017 07/30/2017 Inactive potassium chloride ER 10 mEq capsule,extended release RxNorm: 871245 1 Capsule(s) PO BID when taking lasix 07/01/20172017 Inactive oxycodone 30 mg tablet RxNorm: 1018251 1/2 Tablet(s) PO Q6 08/22/2017 Inactive fentanyl 100 mcg/hr transdermal patch RxNorm: 843839 1 Patch TD Q72H use with 25mcg/hr patch 05/07/2017 06/05/2017 Inactive fentanyl 25 mcg/hr transdermal patch RxNorm: 156066 1 Patch TD Q72H use with 100mcg patch for a total of 125mcg daily 05/07/2017 06/05/2017 Inactive fentanyl 100 mcg/hr transdermal patch RxNorm: 723824 1 Patch TD Q72H 04/08/2017 05/06/2017 Inactive fentanyl 25 mcg/hr transdermal patch RxNorm: 347387 1 Patch TD Q72H use with 100mcg patch for a total of 125mcg daily 04/08/2017 05/06/2017 Inactive Kenalog 40 mg/mL suspension for injection RxNorm: 9014810 1.5 Milliliter(s) Inj 04/02/2017 04/02/2017 Inactive fentanyl 100 mcg/hr transdermal patch RxNorm: 552015 1 Patch TD Q72H 03/12/2017 04/07/2017 Inactive fentanyl 25 mcg/hr transdermal patch RxNorm: 234012 1 Patch TD Q72H use with 100mcg patch for a total of 125mcg daily 03/12/2017 04/07/2017 Inactive oxycodone 30 mg tablet RxNorm: 4006079 1/2 Tablet(s) PO Q6 09/201704/07/2017 Inactive cyanocobalamin (vit B-12) 1,000 mcg/mL injection syringe RxNorm: 092762 1 Milliliter(s) Inj monthly 02/16/2017 No Stop Date Active please provide with supplys needed for injection fentanyl 100 mcg/hr transdermal patch RxNorm: 113436 1 Patch TD Q72H 02/06/2017 03/07/2017 Inactive Myrbetriq 50 mg tablet,extended release RxNorm: 1635649 1 Tablet(s) PO QPM 12/11/2016 07/22/2017 Inactive oxycodone 30 mg tablet RxNorm: 7933119 1/2 Tablet(s) PO Q6 10/201601/06/2017 Inactive naproxen 500 mg tablet RxNorm: 286442 1 Tablet(s) PO BID Take 1 tablet by mouth two times daily as needed 12/08/201607/08 Inactive - First Attempt Ref: [id number] Myrbetriq 50 mg tablet,extended release RxNorm: 9128594 1 Tablet(s) PO QPM 11/17/2016 12/10/2016 Inactive fentanyl 100 mcg/hr transdermal patch RxNorm: 654130 1 Patch TD Q72H 11/12/2016 12/11/2016 Inactive Vesicare 10 mg tablet RxNorm: 314819 1 Tablet(s) PO QPM 201611/18/2016 Inactive oxycodone 10 mg tablet RxNorm: 1195239 1-2 Tablet(s) PO Q4 PRN as needed to take between 30mg dose if needed for extra pain control 201612/07/2016 Inactive fentanyl 75 mcg/hr transdermal patch RxNorm: 223165 1 TD Q72H 10/22/2016 11/10/2016 Inactive oxycodone 10 mg tablet RxNorm: 3578869 1-2 Tablet(s) PO Q4 PRN as needed to take between 30mg dose if needed for extra pain control 201611/04/2016 Inactive Kenalog 40 mg/mL suspension for injection RxNorm: 9805903 1 Milliliter(s) Inj 10/02/2016 10/02/2016 Inactive Kenalog 40 mg/mL suspension for injection RxNorm: 4609837 1 Milliliter(s) Inj 09/12/2016 09/12/2016 Inactive cyclobenzaprine 5 mg tablet RxNorm: 589304 1 Tablet(s) PO Q8 as needed muscle spasms 09/11/2016 07/22/2017 Inactive prednisone 10 mg tablets in a dose pack RxNorm: 998883 1 Tablet(s) PO UD 09/09/2016 06/23/2017 Inactive potassium chloride ER 10 mEq capsule,extended release RxNorm: 405380 1 Capsule(s) PO BID as needed when taking lasix 08/26/2016 06/30/2017 Inactive Lasix 20 mg tablet RxNorm: 697151 1 Tablet(s) PO BID daily x 10 days then as needed edema 08/26/2016 12/23/2016 Inactive naproxen 500 mg tablet RxNorm: 582331 Take 1 tablet by mouth two times daily as needed 08/18/2016 11/15/2016 Inactive - First Attempt Ref: [id number] Lasix 20 mg tablet RxNorm: 085981 1 Tablet(s) PO QAM daily x 10 days then as needed edema 08/18/2016 08/25/2016 Inactive Vesicare 5 mg tablet RxNorm: 445777 1 Tablet(s) PO QPM 201611/04/2016 Inactive potassium chloride ER 10 mEq capsule,extended release RxNorm: 055428 1 Capsule(s) PO QAM as needed when taking lasix 08/18/2016 08/25/2016 Inactive Myrbetriq 25 mg tablet,extended release RxNorm: 4933118 1 Tablet(s) PO QHS 07/14/2016 07/29/2016 Inactive pantoprazole 40 mg tablet,delayed release RxNorm: 616996 Take 1 tablet by mouth daily 06/30/2016 12/26/2016 Inactive - Ref: [id number] Embeda 20 mg-0.8 mg capsule, extend release, oral only RxNorm: 289024 1 Capsule(s ) PO daily 06/04/2016 06/03/2016 Inactive Embeda 20 mg-0.8 mg capsule, extend release, oral only RxNorm: 015872 1 Capsule(s ) PO daily 06/04/2016 07/01/2016 Inactive oxycodone 10 mg tablet RxNorm: 6148488 1 Tablet(s) PO QID as needed to take between 30mg dose if needed for extra pain control 201606/10/2016 Inactive oxycodone 30 mg tablet RxNorm: 5917193 1 Tablet(s) PO Q6 201611/04/2016 Inactive cyanocobalamin (vit B-12) 1,000 mcg/mL injection solution RxNorm: 123423 1 Milliliter(s) Inj monthly 02/22/201602/15 Inactive she also needs syringes/ needles for this solution QS oxycodone 30 mg tablet RxNorm: 0486770 1 Tablet(s) PO Q6 201503/19/2016 Inactive oxycodone 10 mg tablet RxNorm: 2441263 1 Tablet(s) PO QID as needed to take between 30mg dose if needed for extra pain control 201503/19/2016 Inactive oxycodone 10 mg tablet RxNorm: 8551275 1 Tablet(s) PO QID as needed to take between 30mg dose if needed for extra pain control 201502/18/2016 Inactive oxycodone 30 mg tablet RxNorm: 1892289 1 Tablet(s) PO Q6 201502/18/2016 Inactive pantoprazole 40 mg tablet,delayed release RxNorm: 385896 Take 1 tablet by mouth daily 01/22/2016 06/29/2016 Inactive - First Attempt Ref: [id number] oxycodone 30 mg tablet RxNorm: 6407386 1 Tablet(s) PO Q6 201501/28/2016 Inactive oxycodone 10 mg tablet RxNorm: 4819043 1 Tablet(s) PO QID as needed take between 20mg dose if needed for extra pain control 11/07/2015 12/06/2015 Inactive oxycodone 20 mg tablet RxNorm: 9752714 1 Tablet(s) PO Q6 as needed 11/07/2015 12/31/2015 Inactive doxycycline hyclate 100 mg tablet RxNorm: 640416 1 Tablet(s) PO BID 11/01/2015 11/10/2015 Inactive potassium chloride ER 10 mEq capsule,extended release RxNorm: 252837 1 Capsule(s) PO TIW as needed when taking lasix 09/04/2015 08/17/2016 Inactive Voltaren 1 % topical gel RxNorm: 346110 2 Gram(s) TOP QID 08/2909/03/2015 Inactive pa approved Voltaren 1 % topical gel RxNorm: 363932 2 Gram(s) TOP QID 08/0808/29/2015 Inactive naproxen 500 mg tablet RxNorm: 779149 1 Tablet(s) PO BID 201508/17/2016 Inactive naproxen 500 mg tablet RxNorm: 161842 1 Tablet(s) PO BID 201508/08/2015 Inactive doxycycline hyclate 100 mg tablet RxNorm: 749048 1 Tablet(s) PO BID do not take calcium/vitamin d while on antibiotic 07/18/2015 07/31/2015 Inactive Vitamin D2 50,000 unit capsule RxNorm: 018042 1 Capsule(s) PO QW 07/02/2015 11/18/2015 Inactive Premarin 0.3 mg tablet RxNorm: 609486 1 Tablet(s) PO daily 12/201505/09/2015 Inactive Premarin 0.3 mg tablet RxNorm: 822592 1 Tablet(s) PO daily 12/201503/17/2016 Inactive simvastatin 40 mg tablet RxNorm: 647432 1 Tablet(s) PO daily 03/17/2016 Inactive spironolactone 25 mg tablet RxNorm: 735914 TAKE ONE TABLET BY MOUTH DAILY 05/07/2015 05/27/2016 Inactive potassium chloride ER 10 mEq capsule,extended release RxNorm: 893351 1 Capsule(s) PO TIW as needed when taking lasix 04/17/2015 09/03/2015 Inactive alendronate 70 mg tablet RxNorm: 206533 1 Tablet(s) PO weekly QW 04/17/2015 07/01/2015 Inactive Vitamin D2 50,000 unit capsule RxNorm: 168902 1 Capsule(s) PO QW 03/30/2015 06/27/2015 Inactive Vitamin D2 50,000 unit capsule RxNorm: 046906 1 Capsule(s) PO QW 03/21/2015 03/29/2015 Inactive cyanocobalamin (vit B-12) 1,000 mcg/mL injection solution RxNorm: 688060 1 Milliliter(s) Inj monthly 03/19/201502/20 Inactive cyanocobalamin (vit B-12) 1,000 mcg/mL injection solution RxNorm: 143415 1 Milliliter(s) Inj monthly 03/16/201503/18 Inactive cyanocobalamin (vit B-12) 1,000 mcg/mL injection solution RxNorm: 958969 1 Milliliter(s) Inj monthly 03/16/201503/15 Inactive pantoprazole 40 mg tablet,delayed release RxNorm: 674070 1 Tablet(s) PO daily 03/05/2015 01/21/2016 Inactive Lasix 20 mg tablet RxNorm: 225473 1 Tablet(s) PO TIW as needed edema 02/08/2015 02/02/2016 Inactive oxycodone 10 mg tablet RxNorm: 6673989 1 Tablet(s) PO QID as needed take between 20mg dose if needed for extra pain control 11/09/2014 12/08/2014 Inactive oxycodone 20 mg tablet RxNorm: 7960722 1 Tablet(s) PO Q6 as needed 10/25/2014 11/06/2015 Inactive doxycycline hyclate 100 mg tablet RxNorm: 155880 1 Tablet(s) PO BID 10/23/2014 11/19/2014 Inactive Cipro 500 mg tablet RxNorm: 104630 1 Tablet(s) PO BID 201410/16/2014 Inactive Cipro 500 mg tablet RxNorm: 157552 1 Tablet(s) PO BID 201410/09/2014 Inactive oxycodone 20 mg tablet RxNorm: 7247737 1 Tablet(s) PO Q6 as needed 09/25/2014 10/24/2014 Inactive Lasix 20 mg tablet RxNorm: 538261 1 Tablet(s) PO TIW as needed edema 09/14/2014 01/11/2015 Inactive potassium chloride ER 10 mEq capsule,extended release RxNorm: 979556 1 Capsule(s) PO TIW as needed when taking lasix 09/14/2014 01/11/2015 Inactive doxycycline hyclate 100 mg tablet RxNorm: 389150 1 Tablet(s) PO BID 09/05/2014 09/14/2014 Inactive doxycycline hyclate 100 mg tablet RxNorm: 933978 1 Tablet(s) PO BID 09/05/2014 09/04/2014 Inactive oxycodone 20 mg tablet RxNorm: 8301646 1 Tablet(s) PO Q6 as needed 08/29/2014 09/24/2014 Inactive spironolactone 25 mg tablet RxNorm: 144247 1 Tablet(s) PO daily 08/11/2014 03/08/2015 Inactive oxycodone 20 mg tablet RxNorm: 7373817 1 Tablet(s) PO Q6 as needed 08/02/2014 08/28/2014 Inactive Vitamin D3 2,000 unit tablet RxNorm: 352837 1 Tablet(s) PO daily 07/14/2014 No Stop Date Active Vitamin D2 50,000 unit capsule RxNorm: 679361 1 Capsule(s) PO QW 07/14/2014 10/11/2014 Inactive Vitamin D2 50,000 unit capsule RxNorm: 878455 1 Capsule(s) PO QW 07/14/2014 07/13/2014 Inactive Prolia 60 mg/mL subcutaneous syringe RxNorm: 996801 Milliliter(s) SQ EVERY 6 MONTHS No Start Date Active Carafate 1 gram tablet RxNorm: 039844 1 Tablet(s) PO BID No Start Date Active Miralax oral RxNorm: 068014 oral No Start Date Active Stool Softener oral RxNorm: 47570 oral No Start Date Active Calcium + Vitamin D oral RxNorm: 4018 oral No Start Date Active naproxen 500 mg tablet RxNorm: 842605 1 Tablet(s) PO BID No Start Date 08/05/2015 Inactive albuterol sulfate 2.5 mg/3 mL (0.083 %) solution for nebulization RxNorm: 149531 3 Milliliter(s) INH Q4 PRN No Start Date 02/17/2018 Inactive oxycodone 20 mg tablet RxNorm: 8312758 1 Tablet(s) PO Q6 as needed No Start Date 08/01/2014 Inactive aspirin 81 mg tablet RxNorm: 766385 1 Tablet(s) PO daily No Start Date 07/22/2017 Inactive simvastatin 40 mg tablet RxNorm: 818965 1 Tablet(s) PO daily No Start Date 05/09/2015 Inactive cyanocobalamin (vit B-12) 1,000 mcg/mL injection syringe RxNorm: 811871 1 Inj monthly No Start Date 02/15/2017 Inactive Reglan 10 mg tablet RxNorm: 097794 1 Tablet(s) PO as needed No Start Date 07/29/2016 Inactive alendronate 70 mg tablet RxNorm: 648341 1 Tablet(s) PO weekly No Start Date 04/16/2015 Inactive Protonix 40 mg tablet,delayed release RxNorm: 410038 1 Tablet(s) PO daily No Start Date 03/04/2015 Inactive cyclobenzaprine 5 mg tablet RxNorm: 025905 1 Tablet(s) PO Q8 as needed muscle spasms No Start Date 09/10/2016 Inactive Vitamin D3 1,000 unit capsule RxNorm: 880388 1 Capsule(s) PO daily No Start Date 07/13/2014 Inactive Cardizem CD 360 mg capsule,extended release RxNorm: 120401 1 Capsule(s) PO daily No Start Date 01/04/2018 Inactive prednisone 10 mg tablets in a dose pack RxNorm: 283666 1 Tablet(s) PO UD No Start Date 09/08/2016 Inactive Medication Administered Medication Codes Instructions Start Date Status promethazine 25 mg/mL injection solution RxNorm: 674430 Milliliter 04/21/2018 No longer Active Kenalog 40 mg/mL suspension for injection RxNorm: 1499998 1Milliliter 08/31/2017 No longer Active Kenalog 40 mg/mL suspension for injection RxNorm: 4566856 2Milliliter 08/21/2017 No longer Active Kenalog 40 mg/mL suspension for injection RxNorm: 1138661 2MilliliterUD 08/12/2017 No longer Active Kenalog 40 mg/mL suspension for injection RxNorm: 8443850 2Milliliter 08/05/2017 No longer Active Kenalog 40 mg/mL suspension for injection RxNorm: 0133222 1.5Milliliter 04/02/2017 No longer Active Kenalog 40 mg/mL suspension for injection RxNorm: 7299902 1Milliliter 10/02/2016 No longer Active Kenalog 40 mg/mL suspension for injection RxNorm: 8875183 1Milliliter 09/12/2016 No longer Active Immunizations Vaccine [...] Item Item Code Result Date Comp Metabolic Crx833 NA 134 mEq/L 03/03/2018 Comp Metabolic Sul766 K 3.3 mEq/L 03/03/2018 Comp Metabolic Wug928 CL 90 mEq/L 03/03/2018 Comp Metabolic Xqu713 CO2 33.0 mEq/L 03/03/2018 Comp Metabolic Ltj888 ANION GAP 14 03/03/2018 Comp Metabolic Oru346 GLUCOSE 146 mg/dL 03/03/2018 Comp Metabolic Cke877 Creat 1.7 mg/dL 03/03/2018 Comp Metabolic Ufw491 eGFR 31 ml/min/1.73m2 03/03/2018 Comp Metabolic Yvl825 BUN 74 mg/dL 03/03/2018 Comp Metabolic Gkv825 B/C Ratio 43.8 Ratio 03/03/2018 Comp Metabolic Ery650 CALCIUM 8.6 mg/dL 03/03/2018 Comp Metabolic Kvr795 ALK PHOS 70 U/L 03/03/2018 Comp Metabolic Ncd501 AST(SGOT) 14 U/L 03/03/2018 Comp Metabolic Qfu083 ALT(SGPT) 9 U/L 03/03/2018 Comp Metabolic Ucz412 BILI T 0.6 mg/dL 03/03/2018 Comp Metabolic Gfi955 ALBUMIN 3.8 g/dL 03/03/2018 Comp Metabolic Qpq313 TPRO 6.7 g/dL 03/03/2018 Comp Metabolic Ouz609 GLOB 2.9 g/dL 03/03/2018 Comp Metabolic Vxc413 A/G Ratio 1.3 Ratio 03/03/2018 Comp Metabolic Gbi401 Osmo 293 mOsmo 03/03/2018 Cbc With Differential [...] 29.9 pg 03/03/2018 Cbc With Differential Ord2 [place]% 11.1 % 03/03/2018 Cbc With Differential Ord2 [...] 1.38 K/ul 03/03/2018 Cbc With Differential Ord2 [place] ABS# 0.9 K/ul 03/03/2018 Cbc With Differential Ord2 Eos ABS# 0.0 K/ul 03/03/2018 Cbc With Differential Ord2 Baso ABS# 0.1 K/ul 03/03/2018 Tibc Ord40 Iron 75 ug/dl 10/22/2017 Tibc Ord40 UIBC 270 ug/dL 10/22/2017 Tibc Ord40 TIBC 345 ug/dL 10/22/2017 Tibc Ord40 Fe-%Sat 21.7 % 10/22/2017 Prealbumin 793957 PREALBUMIN 33 mg/dL 10/21/2017 Comp Metabolic Rbd580 NA 134 mEq/L 10/20/2017 Comp Metabolic Wgh153 K 3.7 mEq/L 10/20/2017 Comp Metabolic Etc688 CL 93 mEq/L 10/20/2017 Comp Metabolic Fvj566 CO2 29.0 mEq/L 10/20/2017 Comp Metabolic Nyo139 ANION GAP 16 10/20/2017 Comp Metabolic Gsc274 GLUCOSE 115 mg/dL 10/20/2017 Comp Metabolic Vvm031 Creat 0.8 mg/dL 10/20/2017 Comp Metabolic Eoj882 eGFR 73 ml/min/1.73m2 10/20/2017 Comp Metabolic Phg480 BUN 46 mg/dL 10/20/2017 Comp Metabolic Fue986 B/C Ratio 57.5 Ratio 10/20/2017 Comp Metabolic Akp182 CALCIUM 8.7 mg/dL 10/20/2017 Comp Metabolic Tib361 ALK PHOS 56 U/L 10/20/2017 Comp Metabolic Msh620 AST(SGOT) 19 U/L 10/20/2017 Comp Metabolic Oqc827 ALT(SGPT) 23 U/L 10/20/2017 Comp Metabolic Fkg460 BILI T 0.6 mg/dL 10/20/2017 Comp Metabolic Edh561 ALBUMIN 4.0 g/dL 10/20/2017 Comp Metabolic Vdk248 TPRO 6.6 g/dL 10/20/2017 Comp Metabolic Obo846 GLOB 2.7 g/dL 10/20/2017 Comp Metabolic Ymb979 A/G Ratio 1.5 Ratio 10/20/2017 Comp Metabolic Mfz768 Osmo 281 mOsmo 10/20/2017 Tsh Ord6 TSH [...] 35.4 pg 10/20/2017 Cbc With Differential Ord2 [place]% 9.9 % 10/20/2017 Cbc With Differential Ord2 [...] 1.15 K/ul 10/20/2017 Cbc With Differential Ord2 [place] ABS# 0.6 K/ul 10/20/2017 Cbc With Differential Ord2 Eos ABS# 0.0 K/ul 10/20/2017 Cbc With Differential Ord2 Baso ABS# 0.0 K/ul 10/20/2017 Iron Ord72 Iron 75 ug/dl 10/20/2017 Romie Reflex Profile [id number] ROMIE (BRYANNA) SCREEN NONE DETECTED 01/12/2017 Comp Metabolic Fir550 NA 129 mEq/L 01/08/2017 Comp Metabolic Nyu367 K 3.9 mEq/L 01/08/2017 Comp Metabolic Huq858 CL 94 mEq/L 01/08/2017 Comp Metabolic Vhy414 CO2 31.0 mEq/L 01/08/2017 Comp Metabolic Qky955 ANION GAP 8 01/08/2017 Comp Metabolic Lcw967 GLUCOSE 103 mg/dL 01/08/2017 Comp Metabolic Wdu460 Creat 0.9 mg/dL 01/08/2017 Comp Metabolic Cjv014 eGFR 61 ml/min/1.73m2 01/08/2017 Comp Metabolic Ijw441 BUN 29 mg/dL 01/08/2017 Comp Metabolic Eea321 B/C Ratio 30.9 Ratio 01/08/2017 Comp Metabolic Mny525 CALCIUM 8.5 mg/dL 01/08/2017 Comp Metabolic Ask687 ALK PHOS 58 U/L 01/08/2017 Comp Metabolic Vhr463 AST(SGOT) 17 U/L 01/08/2017 Comp Metabolic Tbs575 ALT(SGPT) 10 U/L 01/08/2017 Comp Metabolic Hbm961 BILI T 0.4 mg/dL 01/08/2017 Comp Metabolic Zea821 ALBUMIN 3.0 g/dL 01/08/2017 Comp Metabolic Tlx874 TPRO 5.5 g/dL 01/08/2017 Comp Metabolic Yfy955 GLOB 2.5 g/dL 01/08/2017 Comp Metabolic Dnm353 A/G Ratio 1.2 Ratio 01/08/2017 Comp Metabolic Dpn307 Osmo 265 mOsmo 01/08/2017 Cbc With Differential [...] 33.8 pg 01/08/2017 Cbc With Differential Ord2 [place]% 12.2 % 01/08/2017 Cbc With Differential Ord2 [...] 1.62 K/ul 01/08/2017 Cbc With Differential Ord2 [place] ABS# 0.9 K/ul 01/08/2017 Cbc With Differential [...] 33.1 pg 11/10/2016 Cbc With Differential Ord2 [place]% 9.1 % 11/10/2016 Cbc With Differential Ord2 [...] 0.78 K/ul 11/10/2016 Cbc With Differential Ord2 [place] ABS# 0.5 K/ul 11/10/2016 Cbc With Differential [...] 30.3 pg 10/07/2016 Cbc With Differential Ord2 [place]% 11.8 % 10/07/2016 Cbc With Differential Ord2 [...] 1.54 K/ul 10/07/2016 Cbc With Differential Ord2 [place] ABS# 1.0 K/ul 10/07/2016 Cbc With Differential Ord2 Eos ABS# 0.1 K/ul 10/07/2016 Cbc With Differential Ord2 Baso ABS# 0.0 K/ul 10/07/2016 Comp Metabolic Fqe408 NA 129 mEq/L 08/26/2016 Comp Metabolic Xwz890 K 3.9 mEq/L 08/26/2016 Comp Metabolic Ffl300 CL 93 mEq/L 08/26/2016 Comp Metabolic Gdp641 CO2 30.0 mEq/L 08/26/2016 Comp Metabolic Zmu441 ANION GAP 10 08/26/2016 Comp Metabolic Vco665 GLUCOSE 87 mg/dL 08/26/2016 Comp Metabolic Wqz487 Creat 0.6 mg/dL 08/26/2016 Comp Metabolic Whf346 eGFR 96 ml/min/1.73m2 08/26/2016 Comp Metabolic Vxl988 BUN 17 mg/dL 08/26/2016 Comp Metabolic Fdq150 B/C Ratio 27.0 Ratio 08/26/2016 Comp Metabolic Gxs223 CALCIUM 7.6 mg/dL 08/26/2016 Comp Metabolic Jnh276 ALK PHOS 72 U/L 08/26/2016 Comp Metabolic Ktv484 AST(SGOT) 20 U/L 08/26/2016 Comp Metabolic Cdz438 ALT(SGPT) 12 U/L 08/26/2016 Comp Metabolic Rxv284 BILI T 0.3 mg/dL 08/26/2016 Comp Metabolic Qhw399 ALBUMIN 2.7 g/dL 08/26/2016 Comp Metabolic Rxz252 TPRO 5.3 g/dL 08/26/2016 Comp Metabolic Eas754 GLOB 2.6 g/dL 08/26/2016 Comp Metabolic Nyn500 A/G Ratio 1.1 Ratio 08/26/2016 Comp Metabolic Bhn541 Osmo 260 mOsmo 08/26/2016 Cbc With Differential [...] 28.3 pg 08/26/2016 Cbc With Differential Ord2 [place]% 9.6 % 08/26/2016 Cbc With Differential Ord2 [...] 1.83 K/ul 08/26/2016 Cbc With Differential Ord2 [place] ABS# 1.0 K/ul 08/26/2016 Cbc With Differential Ord2 Eos ABS# 0.1 K/ul 08/26/2016 Cbc With Differential Ord2 Baso ABS# 0.0 K/ul 08/26/2016 Magnesium Ord90 Mag 1.9 mg/dL 08/26/2016 Vitamin D 25 Oh [id number] VITAMIN D, 25 HYDROXY 34.59 ng/mL Tibc Ord40 Iron 13 ug/dl 08/26/2016 Tibc Ord40 UIBC 283 ug/dL 08/26/2016 Tibc Ord40 TIBC 296 ug/dL 08/26/2016 Tibc Ord40 Fe-%Sat 4.4 % 08/26/2016 Ferritin Ord22 FERRITIN 28.8 ng/mL 08/26/2016 Sed Rate Ord21 ESR 20 mm/hr 11/19/2015 Comp Metabolic Vfn163 NA 131 mEq/L 08/22/2015 Comp Metabolic Obn668 K 4.2 mEq/L 08/22/2015 Comp Metabolic Vjm136 CL 98 mEq/L 08/22/2015 Comp Metabolic Mkz437 CO2 27.0 mEq/L 08/22/2015 Comp Metabolic Tac775 ANION GAP 10 08/22/2015 Comp Metabolic Mbw511 GLUCOSE 80 mg/dL 08/22/2015 Comp Metabolic Ujf649 Creat 0.5 mg/dL 08/22/2015 Comp Metabolic Qru870 eGFR 120 ml/min/1.73m2 08/22/2015 Comp Metabolic Rwr914 BUN 13 mg/dL 08/22/2015 Comp Metabolic Wqd009 B/C Ratio 25.0 Ratio 08/22/2015 Comp Metabolic Uvk714 CALCIUM 8.2 mg/dL 08/22/2015 Comp Metabolic Cno883 ALK PHOS 49 U/L 08/22/2015 Comp Metabolic Fwk113 AST(SGOT) 18 U/L 08/22/2015 Comp Metabolic Dut613 ALT(SGPT) 11 U/L 08/22/2015 Comp Metabolic Oox152 BILI T 0.5 mg/dL 08/22/2015 Comp Metabolic Rxt983 ALBUMIN 3.5 g/dL 08/22/2015 Comp Metabolic Olf789 TPRO 6.2 g/dL 08/22/2015 Comp Metabolic Vvn543 GLOB 2.7 g/dL 08/22/2015 Comp Metabolic Hun761 A/G Ratio 1.3 Ratio 08/22/2015 Comp Metabolic Kzv046 Osmo 262 mOsmo 08/22/2015 Cbc With Differential [...] 32.4 pg 08/22/2015 Cbc With Differential Ord2 [place]% 10.3 % 08/22/2015 Cbc With Differential Ord2 [...] 1.39 K/ul 08/22/2015 Cbc With Differential Ord2 [place] ABS# 0.7 K/ul 08/22/2015 Cbc With Differential Ord2 Eos ABS# 0.1 K/ul 08/22/2015 Cbc With Differential Ord2 Baso ABS# 0.0 K/ul 08/22/2015 Tsh Ord6 hTSH II 2.19 uIU/mL 08/22/2015 Vitamin D 25 Oh Sof8669 VITAMIN D, 25 HYDROXY 55.10 ng/mL Lipid [...] 1.5 Ratio 03/16/2015 Vitamin D 25 Oh Rci9159 VITAMIN D, 25 HYDROXY 28.94 ng/mL Cbc [...] 28.1 pg 03/16/2015 Cbc With Differential Ord2 [place]% 11.2 % 03/16/2015 Cbc With Differential Ord2 [...] 2.37 K/ul 03/16/2015 Cbc With Differential Ord2 [place] ABS# 0.8 K/ul 03/16/2015 Cbc With Differential Ord2 Eos ABS# 0.1 K/ul 03/16/2015 Cbc With Differential Ord2 Baso ABS# 0.0 K/ul 03/16/2015 Cbc With Differential Ord2 New Analyzer Notice Please note new ref ranges starting 03-14-2015 due to implemntation of new five part differential hematolgy analyzer. 03/16/2015 Comp Metabolic Axd016 NA 131 mEq/L 03/16/2015 Comp Metabolic Ldx670 K 4.1 mEq/L 03/16/2015 Comp Metabolic Hyu040 CL 94 mEq/L 03/16/2015 Comp Metabolic Nno036 CO2 28.0 mEq/L 03/16/2015 Comp Metabolic Acp150 ANION GAP 13 03/16/2015 Comp Metabolic Mer902 GLUCOSE 96 mg/dL 03/16/2015 Comp Metabolic Eux569 Creat 0.7 mg/dL 03/16/2015 Comp Metabolic Kak833 eGFR 80 ml/min/1.73m2 03/16/2015 Comp Metabolic Lvd980 BUN 16 mg/dL 03/16/2015 Comp Metabolic Mmt343 B/C Ratio 21.6 Ratio 03/16/2015 Comp Metabolic Wjo759 CALCIUM 8.9 mg/dL 03/16/2015 Comp Metabolic Uvx282 ALK PHOS 44 U/L 03/16/2015 Comp Metabolic Vhc401 AST(SGOT) 22 U/L 03/16/2015 Comp Metabolic Vdv115 ALT(SGPT) 14 U/L 03/16/2015 Comp Metabolic Gyr455 BILI T 0.5 mg/dL 03/16/2015 Comp Metabolic Ked730 ALBUMIN 3.4 g/dL 03/16/2015 Comp Metabolic Cvr167 TPRO 6.0 g/dL 03/16/2015 Comp Metabolic Jay561 GLOB 2.6 g/dL 03/16/2015 Comp Metabolic Dgl120 A/G Ratio 1.3 Ratio 03/16/2015 Comp Metabolic Nyq466 Osmo 264 mOsmo 03/16/2015 Comp Metabolic Vpu745 NA 129 mEq/L 11/09/2014 Comp Metabolic Fec122 K 4.2 mEq/L 11/09/2014 Comp Metabolic Xwk072 CL 96 mEq/L 11/09/2014 Comp Metabolic Wpm837 CO2 27.0 mEq/L 11/09/2014 Comp Metabolic Sux902 ANION GAP 10 11/09/2014 Comp Metabolic Sma871 GLUCOSE 144 mg/dL 11/09/2014 Comp Metabolic Reh991 Creat 0.8 mg/dL 11/09/2014 Comp Metabolic Akp074 eGFR 73 ml/min/1.73m2 11/09/2014 Comp Metabolic Xzw146 BUN 22 mg/dL 11/09/2014 Comp Metabolic Ete603 B/C Ratio 27.5 Ratio 11/09/2014 Comp Metabolic Dxx489 CALCIUM 8.6 mg/dL 11/09/2014 Comp Metabolic Ubk665 ALK PHOS 55 U/L 11/09/2014 Comp Metabolic Iie749 AST(SGOT) 27 U/L 11/09/2014 Comp Metabolic Tss242 ALT(SGPT) 18 U/L 11/09/2014 Comp Metabolic Xtz233 BILI T 0.5 mg/dL 11/09/2014 Comp Metabolic Koy309 ALBUMIN 3.0 g/dL 11/09/2014 Comp Metabolic Nzr945 TPRO 5.4 g/dL 11/09/2014 Comp Metabolic Mhr667 GLOB 2.4 g/dL 11/09/2014 Comp Metabolic Okq784 A/G Ratio 1.3 Ratio 11/09/2014 Comp Metabolic Lqt728 Osmo 265 mOsmo 11/09/2014 Magnesium Ord90 Mag [...] developed 11/27/2017 None Full Exam - General 1995 Constitutional general appearance Overall: in no acute distress 11/27/2017 None Full Exam - General 1995 Constitutional general appearance Overall: well nourished 11/27/2017 [...] rate 2015 None Full Exam - General 1995 Cardiovascular extremities Overall: no clubbing 2015 None [...] Procedure Codes Date THER/PROPH/DIAG INJ SC/IM CPT-4: 95832 04/21/2018 PROMETHAZINE HCL INJECTION CPT-4: J2550 04/21/2018 DRAIN/INJECT JOINT/BURSA CPT-4: 27014 08/21/2017 DRAIN/INJECT JOINT/BURSA CPT-4: 45309 08/12/2017 TRIAMCINOLONE ACET INJ NOS CPT-4: J3301 08/12/2017 DRAIN/INJECT JOINT/BURSA CPT-4: 07219 08/05/2017 TRIAMCINOLONE ACET INJ NOS CPT-4: J3301 08/05/2017 DRAIN/INJECT JOINT/BURSA CPT-4: 96280 07/23/2017 DRAIN/INJECT JOINT/BURSA CPT-4: 73837 07/09/2017 TRIAMCINOLONE ACET INJ NOS CPT-4: J3301 07/09/2017 PRESCRIP TRANSMIT VIA ERX SY CPT-4: G8553 07/09/2017 DRAIN/INJECT JOINT/BURSA CPT-4: 42260 07/01/2017 TRIAMCINOLONE ACET INJ NOS CPT-4: J3301 07/01/2017 PRESCRIP TRANSMIT VIA ERX SY CPT-4: G8553 07/01/2017 DRAIN/INJECT JOINT/BURSA CPT-4: 44803 06/17/2017 DRAIN/INJECT JOINT/BURSA CPT-4: 44129 04/02/2017 TRIAMCINOLONE ACET INJ NOS CPT-4: J3301 04/02/2017 DRAIN/INJECT JOINT/BURSA CPT-4: 05209 02/06/2017 ADMIN INFLUENZA VIRUS VAC CPT-4: G0008 12/08/2016 FLU VACC PRSV FREE INC ANTIG CPT-4: 09627 12/08/2016 PRESCRIP TRANSMIT VIA ERX SY CPT-4: G8553 12/08/2016 PRESCRIP TRANSMIT VIA ERX SY CPT-4: G8553 11/17/2016 TRIAMCINOLONE ACET INJ NOS CPT-4: J3301 10/02/2016 TRIAMCINOLONE ACET INJ NOS CPT-4: J3301 09/12/2016 DRAIN/INJECT JOINT/BURSA CPT-4: 02155 09/08/2016 TRIAMCINOLONE ACET INJ NOS CPT-4: J3301 09/08/2016 PRESCRIP TRANSMIT VIA ERX SY CPT-4: G8553 08/26/2016 PRESCRIP TRANSMIT VIA ERX SY CPT-4: G8553 08/18/2016 ADMIN INFLUENZA VIRUS VAC CPT-4: G0008 11/19/2015 FLU VACC PRSV FREE INC ANTIG Formatting Model/CDA Sections, Assigned to/Luanne Elaine CPT-4: 15002Vtzzkri 11/19/2015 PRESCRIP TRANSMIT VIA ERX SY CPT-4: G8553 09/04/2015 PRESCRIP TRANSMIT VIA ERX SY CPT-4: G8553 2015 PRESCRIP TRANSMIT VIA ERX SY CPT-4: G8553 07/18/2015 PRESCRIP TRANSMIT VIA ERX SY CPT-4: G8553 07/02/2015 REMOVE IMPACTED EAR WAX UNI CPT-4: 42435 04/09/2015 PRESCRIP TRANSMIT VIA ERX SY CPT-4: G8553 02/08/2015 ADMIN INFLUENZA VIRUS VAC CPT-4: G0008 01/10/2015 FLU VACC PRSV FREE INC ANTIG Formatting Model/CDA Sections, Assigned to/Luanne Elaine CPT-4: 06042Tyrhjqp 01/10/2015 ADMIN PNEUMOCOCCAL VACCINE Formatting Model/CDA Sections, Assigned to SNOMED CT: 47694372 CPT-4: C8283Ptpwkko 12/11/2014 PNEUMOCOCCAL VACC [address]: 55115160 CPT-4: 36738 12/11/2014 Vital Signs Date Vital 05/10/2018 Blood [...] Code : 8480-6 BMI: 23.5 Code : 48458-0 Heart Rate 1 : 58 bpm Height: 5'8" SpO2: 96% Weight: 152 lbs 11/30/2017 Blood Pressure 1: 122/70 Code : 8480-6 Heart Rate 1: 105 bpm Height: 5'8" SpO2: 98% Weight: 11/27/2017 Blood Pressure 1: 148/76 Code : 8480-6 Heart Rate 1: 72 bpm Height: 5'8" SpO2: 99% Weight: 11/10/2017 Blood Pressure 1: 130/76 Code : 8480-6 BMI: 27.3 Code : 64570-0 Heart Rate 1 : 98 bpm Height: [...] Code : 8480-6 BMI: 24.7 Code : 47496-9 Heart Rate 1 : 100 bpm Height: 5'8" SpO2: 95% Weight: 160 lbs 08/31/2017 Blood Pressure 1: 128/78 Code : 8480-6 BMI: 23.6 Code : 42787-3 Heart Rate 1 : 102 bpm Height: 5'8" SpO2: 96% Weight: 153 lbs 08/21/2017 Blood Pressure 1: 138/78 Code : 8480-6 Heart Rate 1: 97 bpm SpO2: 95% Weight: 156 lbs 2 oz 08/12/2017 Blood Pressure 1: 138/74 Code : 8480-6 BMI: 25.0 Code : 94578-1 Heart Rate 1 : 94 bpm Height: 5'8" SpO2: 98% Weight: 162 lbs 08/05/2017 Blood Pressure 1: 126/78 Code : 8480-6 BMI: 25.8 Code : 02176-4 Heart Rate 1 : 74 bpm Height: 5'8" SpO2: 96% Weight: 167 lbs 07/23/2017 Blood Pressure 1: 106/64 Code : 8480-6 BMI: 25.3 Code : 79599-4 Heart Rate 1 : 81 bpm Height: 5'8" SpO2: 99% Weight: 163 lbs 14 oz 07/09/2017 Blood Pressure 1: 130/68 Code : 8480-6 Heart Rate 1: 82 bpm Height: 5'8" SpO2: 98% Weight: 07/01/2017 Blood Pressure 1: 124/76 Code : 8480-6 BMI: 26.5 Code : 50686-8 Heart Rate 1 : 99 bpm Height: 5'8" SpO2: 98% Weight: 172 lbs 06/24/2017 Blood Pressure 1: 118/70 Code : 8480-6 Heart Rate 1: 103 bpm Height: 5'8" SpO2: 98% Weight: 06/17/2017 Blood Pressure 1: 110/64 Code : 8480-6 BMI: 25.0 Code : 67935-9 Heart Rate 1 : 73 bpm Height: 5'8" Weight: 162 lbs 06/01/2017 Blood Pressure 1: 158/84 Code : 8480-6 BMI: 24.4 Code : 46268-7 Heart Rate 1 : 94 bpm Height: 5'8" SpO2: 95% Weight: 158 lbs 04/02/2017 Blood Pressure 1: 164/80 Code : 8480-6 BMI: 23.1 Code : 17669-2 Heart Rate 1 : 76 bpm Height: 5'8" SpO2: 94% Weight: 150 lbs 03/12/2017 Blood Pressure 1: 130/74 Code : 8480-6 BMI: 23.0 Code : 49292-0 Heart Rate 1 : 92 bpm Height: 5'8" SpO2: 94% Weight: 149 lbs 02/06/2017 Height: Weight: 01/08/2017 Blood Pressure 1: 136/76 Code : 8480-6 BMI: 21.4 Code : 20249-6 Heart Rate 1 : 85 bpm Height: 5'8" SpO2: 98% Weight: 138 lbs 8 oz 12/08/2016 Blood Pressure 1: 132/66 Code : 8480-6 BMI: 22.2 Code : 63913-9 Heart Rate 1 : 106 bpm Height: 5'8" SpO2: 97% Weight: 144 lbs 11/17/2016 Blood Pressure 1: 146/80 Code : 8480-6 BMI: 22.4 Code : 16218-2 Heart Rate 1 : 100 bpm Height: 5'8" SpO2: 98% Weight: 145 lbs 11/10/2016 Blood Pressure 1: 122/62 Code : 8480-6 BMI: 22.2 Code : 08124-5 Height: 5'8" Weight: 144 lbs 11/05/2016 Blood Pressure 1: 146/80 Code : 8480-6 BMI: 22.2 Code : 66872-8 Heart Rate 1 : 77 bpm Height: 5'8" SpO2: 99% Weight: 144 lbs 10/07/2016 Blood Pressure 1: 132/68 Code : 8480-6 BMI: 22.8 Code : 43840-9 Heart Rate 1 : 90 bpm Height: 5'8" SpO2: 97% Weight: 148 lbs 10/02/2016 Blood Pressure 1: 166/86 Code : 8480-6 BMI: 22.8 Code : 80604-9 Heart Rate 1 : 96 bpm Height: 5'8" SpO2: 96% Weight: 148 lbs 09/12/2016 Blood Pressure 1: 130/86 Code : 8480-6 Height: Weight: 09/08/2016 Blood Pressure 1: 132/74 Code : 8480-6 BMI: 22.4 Code : 96370-8 Heart Rate 1 : 93 bpm Height: 5'8" SpO2: 99% Weight: 145 lbs 08/26/2016 Blood Pressure 1: 132/78 Code : 8480-6 BMI: 23.9 Code : 83482-6 Heart Rate 1 : 80 bpm Height: 5'8" SpO2: 94% Weight: 155 lbs 08/18/2016 Blood Pressure 1: 130/70 Code : 8480-6 BMI: 23.6 Code : 98875-8 Heart Rate 1 : 100 bpm Height: 5'8" SpO2: 94% Weight: 153 lbs 07/30/2016 Blood Pressure 1: 144/84 Code : 8480-6 BMI: 22.4 Code : 61600-4 Heart Rate 1 : 86 bpm Height: 5'8" SpO2: 97% Weight: 145 lbs 07/14/2016 Blood Pressure 1: 122/74 Code : 8480-6 BMI: 22.5 Code : 67339-7 Heart Rate 1 : 87 bpm Height: 5'8" SpO2: 97% Weight: 146 lbs 07/04/2016 Blood Pressure 1: 128/78 Code : 8480-6 BMI: 22.5 Code : 59879-2 Heart Rate 1 : 98 bpm Height: 5'8" Weight: 146 lbs 06/26/2016 Blood Pressure 1: 122/68 Code : 8480-6 BMI: 22.5 Code : 18579-5 Heart Rate 1 : 102 bpm Height: 5'8" SpO2: 98% Weight: 146 lbs 05/28/2016 Blood Pressure 1: 12268 Code : 8480-6 BMI: 22.4 Code : 08596-0 Heart Rate 1 : 89 bpm Height: 5'8" SpO2: 97% Weight: 145 lbs 03/18/2016 Blood Pressure 1: 132/66 Code : 8480-6 BMI: 22.8 Code : 52369-5 Heart Rate 1 : 96 bpm Height: 5'8" SpO2: 98% Weight: 148 lbs 01/29/2016 Blood Pressure 1: 12266 Code : 8480-6 BMI: 22.2 Code : 20768-3 Heart Rate 1 : 90 bpm Height: 5'8" SpO2: 99% Weight: 144 lbs 01/01/2016 Blood Pressure 1: 148/82 Code : 8480-6 BMI: 22.5 Code : 26611-9 Heart Rate 1 : 82 bpm Height: 5'8" Weight: 146 lbs 11/19/2015 Blood Pressure 1: 140/74 Code : 8480-6 BMI: 23.7 Code : 68926-6 Heart Rate 1 : 79 bpm Height: 5'8" SpO2: 96% Weight: 153 lbs 8 oz 11/01/2015 Blood Pressure 1: 118/72 Code : 8480-6 Heart Rate 1: 90 bpm Height: 5'8" SpO2: 95% 09/04/2015 Blood Pressure 1: 136/72 Code : 8480-6 BMI: 23.1 Code : 67975-2 Heart Rate 1 : 97 bpm Height: 5'8" SpO2: 98% Weight: 149 lbs 8 oz 2015 Blood Pressure 1: 144/76 Code : 8480-6 BMI: 22.8 Code : 59621-5 Heart Rate 1 : 75 bpm Height: 5'8" SpO2: 97% Weight: 148 lbs 07/18/2015 Blood Pressure 1: 132/60 Code : 8480-6 BMI: 23.1 Code : 57778-9 Heart Rate 1 : 78 bpm Height: 5'8" Weight: 150 lbs 07/02/2015 Blood Pressure 1: 156/86 Code : 8480-6 BMI: 23.0 Code : 97971-6 Heart Rate 1 : 75 bpm Height: 5'8" SpO2: 99% Weight: 149 lbs 05/31/2015 Blood Pressure 1: 136/72 Code : 8480-6 BMI: 22.7 Code : 54435-4 Heart Rate 1 : 85 bpm Height: 5'8" SpO2: 97% Weight: 147 lbs 04/09/2015 Blood Pressure 1: 118/60 Code : 8480-6 BMI: 22.7 Code : 94686-3 Heart Rate 1 : 72 bpm Height: 5'8" SpO2: 95% Weight: 147 lbs 02/08/2015 Blood Pressure 1: 138/76 Code : 8480-6 BMI: 23.1 Code : 87241-8 Heart Rate 1 : 80 bpm Height: 5'8" SpO2: 98% Weight: 150 lbs 12/11/2014 Blood Pressure 1: 120/74 Code : 8480-6 BMI: 22.1 Code : 57488-6 Heart Rate 1 : 92 bpm Height: 5'8" SpO2: 96% Weight: 143 lbs 11/09/2014 Blood Pressure 1: 100/64 Code : 8480-6 BMI: 21.6 Code : 49187-5 Heart Rate 1 : 88 bpm Height: 5'8" Weight: 140 lbs 10/23/2014 Blood Pressure 1: 138/82 Code : 8480-6 BMI: 23.6 Code : 22536-2 Heart Rate 1 : 86 bpm Height: 5'8" Weight: 153 lbs 10/16/2014 Blood Pressure 1: 128/60 Code : 8480-6 BMI: 23.3 Code : 05427-9 Heart Rate 1 : 91 bpm Height: 5'8" SpO2: 99% Weight: 151 lbs 10/09/2014 Blood Pressure 1: 120/60 Code : 8480-6 BMI: 23.0 Code : 10654-3 Heart Rate 1 : 96 bpm Height: 5'8" SpO2: 97% Weight: 149 lbs 09/14/2014 Blood Pressure 1: 132/72 Code : 8480-6 BMI: 22.1 Code : 81303-6 Heart Rate 1 : 84 bpm Height: 5'8" SpO2: 97% Weight: 143 lbs 08/11/2014 Blood Pressure 1: 134/74 Code : 8480-6 BMI: 24.1 Code : 17350-0 Heart Rate 1 : 88 bpm Height: 5'8" Weight: 156 lbs 07/12/2014 Blood Pressure 1: 122/62 Code : 8480-6 BMI: 22.7 Code : 82746-8 Heart Rate 1 : 76 bpm Height: [...] Dr. Blancas in [place] and Neurosurgeon in [place] in the past neck pain Significant Medical Conditions spinal stenosis 07/12/2014 has osteoarthritis Advance Directives No Advance Directive data Encounters Encounter Performer Location Codes Date ) 63283 EST. PATIENT, LEVEL III Diagnosis: First degree hemorrhoids[ICD10: K64.0] Diagnosis: Other specified diseases of anus and rectum[ICD10: K62.89] Araceli Silva MD , [facility] CPT-4: 98560 05/10/2018 ([id number]) 43350 EST. 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 PATIENT, LEVEL III Diagnosis: Other specified intestinal infections[ICD10: A08.8] Diagnosis: Diarrhea, unspecified[ICD10: R19.7] Maricel Silva MD, [facility] CPT-4: 85075 04/21/2018 [id number]) 18149 EST. PATIENT, LEVEL IV Diagnosis: Essential (primary) hypertension[ICD10: I10] Diagnosis: Hypo-osmolality and hyponatremia[ICD10: E87.1] Diagnosis: Chronic pain syndrome[ICD10: G89.4] Araceli Silva MD, [facility] CPT-4: 89062 03/03/2018 [id number]) 15982 EST. PATIENT, LEVEL III Diagnosis: Cough[ICD10: R05] Diagnosis: Acute bronchitis, unspecified[ICD10: J20.9] Diagnosis: Chronic obstructive pulmonary disease, unspecified[ICD10: J44.9] Ila Silva MD, [facility] CPT-4: 59899 02/12/2018 ([id number]) 49716 EST. PATIENT, LEVEL IV Diagnosis: Chronic pain syndrome[ICD10: G89.4] Diagnosis: Cough[ICD10: R05] Diagnosis: Diarrhea, unspecified[ICD10: R19.7] Diagnosis: Generalized edema[ICD10: R60.1] Ila Silva MD, [facility] CPT-4: 30591 02/09/2018 ([id number]) 40148 EST. PATIENT, LEVEL III Diagnosis: Generalized edema[ICD10: R60.1] Diagnosis: Lymphedema, not elsewhere classified[ICD10: I89.0] Araceli Silva MD, [facility] CPT-4: 82828 01/14/2018 ([id number]) 26488 EST. PATIENT, LEVEL IV Diagnosis: Essential (primary) hypertension[ICD10: I10] Diagnosis: Generalized edema[ICD10: R60.1] Diagnosis: Chronic pain syndrome[ICD10: G89.4] Araceli Silva MD, [facility] CPT-4: 75703 12/24/2017 ([id number]) 94839 EST. PATIENT, LEVEL III Diagnosis: Lymphedema, not elsewhere classified[ICD10: I89.0] Araceli Silva MD, [facility] CPT-4: 96688 11/30/2017 ([id number]) 76713 EST. PATIENT, LEVEL III Diagnosis: Generalized edema[ICD10: R60.1] Ila Silva MD, [facility] CPT-4: 06442 11/27/2017 ([id number]) 95636 EST. PATIENT, LEVEL IV Diagnosis: Localized edema[ICD10: [...] in left shoulder[ICD10: M25.512] Araceli Silva MD, [facility] CPT-4: 77672 11/10/2017 ([id number]) 47920 EST. PATIENT, LEVEL IV Diagnosis: Localized edema[ICD10: [...] in left shoulder[ICD10: M25.512] Araceli Silva MD, [facility] CPT-4: 63113 10/29/2017 ([id number]) 36100 EST. PATIENT, LEVEL IV Diagnosis: Essential (primary) [...] Diagnosis: Localized edema[ICD10: R60.0] Araceli Silva MD, [facility] CPT- 4: 43616 10/20/2017 ([id number]) 84453 EST. 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 PATIENT, LEVEL IV Diagnosis: Primary osteoarthritis, left shoulder[ICD10: M19.012] Diagnosis: Pain in left shoulder[ICD10: M25.512] Diagnosis: Lymphedema, not elsewhere classified[ICD10: I89.0] Diagnosis: Localized edema[ICD10: R60.0] Diagnosis: Chronic atrial fibrillation[ICD10: I48.2] Araceli Silva MD, [facility] CPT-4: 00793 09/15/2017 ([id number]) 02569 EST. PATIENT, LEVEL III Diagnosis: Primary osteoarthritis, left shoulder[ICD10: M19.012] Diagnosis: Pain in left shoulder[ICD10: M25.512] Diagnosis: Hemarthrosis, left shoulder[ICD10: M25.012] Araceli Silva MD, [facility] CPT-4: 14456 08/31/2017 ([id number]) 18965 EST. 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 PATIENT, LEVEL III Diagnosis: Localized edema[ICD10: R60.0] Araceli Silva MD, [facility] CPT- 4: 45994 07/23/2017 ([id number]) 70623 EST. PATIENT, LEVEL III Diagnosis: Rheumatoid arthritis without rheumatoid factor, left shoulder[ICD10: M06.012] Diagnosis: Hemarthrosis, left shoulder[ICD10: M25.012] Araceli Silva MD, [facility] CPT-4: 64472 07/09/2017 ([id number]) 15795 EST. PATIENT, LEVEL III Diagnosis: Chronic pain syndrome[ICD10: G89.4] Diagnosis: Rheumatoid arthritis without rheumatoid factor, left shoulder[ICD10: M06.012] Diagnosis: Hemarthrosis, left shoulder[ICD10: M25.012] Diagnosis: Lymphedema, not elsewhere classified[ICD10: I89.0] Araceli Silva MD, [facility] CPT-4: 46386 07/01/2017 ([id number]) 10719 EST. PATIENT, LEVEL III Diagnosis: Chronic pain syndrome[ICD10: G89.4] Araceli Silva MD, [facility] CPT-4: 79865 06/24/2017 ([id number]) 69110 EST. PATIENT, LEVEL IV Diagnosis: Rheumatoid arthritis without rheumatoid factor, right shoulder[ICD10 : M06.011] Diagnosis: Rheumatoid arthritis without rheumatoid factor, left shoulder[ICD10: M06.012] Diagnosis: Pain in right shoulder[ICD10: M25.511] Diagnosis: Pain in left shoulder[ICD10: M25.512] Diagnosis: Chronic atrial fibrillation[ICD10: I48.2] Araceli Silva MD, [facility] CPT-4: 52342 06/17/2017 [id number] EST. PATIENT, LEVEL III Diagnosis: Pain in left shoulder[ICD10: M25.512] Diagnosis: Hemarthrosis, right shoulder[ICD10: M25.011] Diagnosis: Hemarthrosis, left shoulder[ICD10: M25.012] Maricel Silva MD, [facility] CPT-4: 75642 06/01/2017 ([id number]) 83675 EST. PATIENT, LEVEL II Diagnosis: Pain in right shoulder[ICD10: M25.511] Diagnosis: Hemarthrosis, right shoulder[ICD10: M25.011] Araceli Silva MD, [facility] CPT-4: 33906 04/02/2017 ([id number]) 57052 EST. PATIENT, LEVEL IV Diagnosis: Chronic pain syndrome[ICD10: G89.4] Diagnosis: Rheumatoid arthritis without rheumatoid factor, right shoulder[ICD10 : M06.011] Diagnosis: Rheumatoid arthritis without rheumatoid factor, left shoulder[ICD10: M06.012] Araceli Silva MD, [facility] CPT-4: 27600 2017 ([id number]) 29276 EST. PATIENT, LEVEL IV Diagnosis: Primary osteoarthritis, right shoulder[ICD10: M19.011] Diagnosis: Chronic pain syndrome[ICD10: G89.4] Diagnosis: Essential (primary) hypertension[ICD10: I10] Diagnosis: Hypomagnesemia[ICD10: E83.42] Araceli Silva MD, [facility] CPT- 4: 34217 01/08/2017 ([id number]) 71814 EST. PATIENT, LEVEL IV Diagnosis: Encounter for immunization[ICD10: Z23] Diagnosis: Chronic pain syndrome[ICD10: G89.4] Diagnosis: Essential (primary) hypertension[ICD10: I10] Araceli Silva MD, [facility] CPT-4: 21550 12/08/2016 ([id number]) 91207 EST. PATIENT, LEVEL III Diagnosis: Urge incontinence[ICD10: N39.41] Diagnosis: Chronic pain syndrome[ICD10: G89.4] Diagnosis: Lymphedema, not elsewhere classified[ICD10: I89.0] Araceli Silva MD, [facility] CPT-4: 20576 11/17/2016 77878 EST. 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 PATIENT, LEVEL IV Diagnosis: Essential (primary) hypertension[ICD10: I10] Diagnosis: Other chronic pain[ICD10: G89.29] Diagnosis: Localized edema[ICD10: R60.0] Diagnosis: Urge incontinence[ICD10: N39.41] Araceli Silva MD, [facility] CPT-4: 78792 11/05/2016 ([id number]) 17739 EST. 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 PATIENT, LEVEL III Diagnosis: Hemarthrosis, right shoulder[ICD10: M25.011] Diagnosis: Pain in right shoulder[ICD10: M25.511] Ila Silva MD, [facility] CPT-4: 00562 10/02/2016 76920 EST. PATIENT, LEVEL II Diagnosis: Low back pain[ICD10: M54.5] Diagnosis: Sacroiliitis, not elsewhere classified[ICD10: M46.1] Ila Silva MD, [facility] CPT-4: 64980 09/12/2016 ([id number]) 82771 EST. PATIENT, LEVEL III Diagnosis: Hemarthrosis, right shoulder[ICD10: M25.011] Diagnosis: Other chronic pain[ICD10: G89.29] Araceli Silva MD, [facility] CPT-4: 67256 09/08/2016 ([id number]) 44853 EST. PATIENT, LEVEL IV Diagnosis: Other iron deficiency anemias[ICD10: D50.8] Diagnosis: Vitamin D deficiency, unspecified[ICD10: E55.9] Diagnosis: Hypomagnesemia[ICD10: E83.42] Araceli Silva MD, [facility] CPT- 4: 31986 08/26/2016 ([id number]) 13874 EST. PATIENT, LEVEL III Diagnosis: Localized edema[ICD10: R60.0] Araceli Silva MD, [facility] CPT- 4: 54971 08/18/2016 ([id number]) 72221 EST. 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 PATIENT, LEVEL IV Diagnosis: Pain in left shoulder[ICD10: M25.512] Diagnosis: Nocturia[ICD10: R35.1] Maricel Silva MD, [facility] CPT-4: 68196 07/14/2016 17640 EST. PATIENT, LEVEL III Diagnosis: Pain in left shoulder[ICD10: M25.512] Maricel Silva MD, [facility] CPT-4: 80493 07/04/2016 ([id number]) 86915 EST. 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 PATIENT, LEVEL II Diagnosis: Insect bite (nonvenomous) of right upper arm, initial encounter[ICD10 : S40.861A] Ila Silva MD, [facility] CPT-4: 39402 11/01/2015 ([id number]) 25239 EST. 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 PATIENT, LEVEL III Diagnosis: Contusion of left upper arm, subsequent encounter[ICD10: S40.022D] Araceli Silva MD [facility] CPT-4: 83722 2015 21079 EST. PATIENT, LEVEL III Diagnosis: Cellulitis of left upper limb[ICD10: L03.114] Maricel Silva MD, [facility] CPT-4: 76912 07/18/2015 ([id number]) 86878 EST. 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 PATIENT, LEVEL IV Diagnosis: Essential (primary) hypertension[ICD10: I10] Diagnosis: Vitamin D deficiency, unspecified[ICD10: E55.9] Diagnosis: Mixed hyperlipidemia[ICD10: E78.2] Diagnosis: Age-related osteoporosis with current pathological fracture, unspecified site, sequela[ICD10: M80.00XS] Araceli Silva MD, [facility] CPT- 4: 71732 02/08/2015 ([id number]) 08536 EST. PATIENT, LEVEL IV Diagnosis: Essential (primary) hypertension[ICD10: I10] Diagnosis: Localized edema[ICD10: R60.0] Diagnosis: Primary osteoarthritis, unspecified site[ICD10: M19.91] Araceli Silva MD, [facility] CPT-4: 59026 12/11/2014 ([id number]) 12915 EST. PATIENT, LEVEL III Diagnosis: EDEMA[ICD9: 782.3] Diagnosis: ESSENTIAL HYPERTENSION[ICD9: 401.9] Araceli Silva MD [facility] CPT-4: 23705 11/09/2014 ([id number]) 37366 EST. PATIENT, LEVEL III Diagnosis: Leg pain[ICD9: 729.5] Diagnosis: Ulcer of toe[ICD9: 707.15] Araceli Silva MD [facility] CPT- 4: 52406 10/23/2014 ([id number]) 59644 EST. PATIENT, LEVEL III Diagnosis: Ulcer of toe[ICD9: 707.15] Araceli Silva MD [facility] CPT- 4: 93100 10/16/2014 57178 EST. PATIENT, LEVEL II Diagnosis: Ulcer of toe[ICD9: 707.15] Ila Silva MD, [facility] CPT-4: 81894 10/09/2014 ([id number]) 46214 EST. PATIENT, LEVEL III Diagnosis: EDEMA[ICD9: 782.3] Araceli Silva MD [facility] CPT-4: 85401 09/14/2014 ([id number]) 46298 EST. PATIENT, LEVEL IV Diagnosis: EDEMA[ICD9: 782.3] Diagnosis: ESSENTIAL HYPERTENSION[ICD9: 401.9] Araceli Silva MD, [facility] CPT-4: 70766 08/11/2014 ([id number]) OFFICE VISIT, NEW - LEVEL 4 Diagnosis: HYPERLIPIDEMIA[ICD9: 272.4] Diagnosis: VITAMIN D DEFICIENCY[ICD9: 268.9] Diagnosis: Osteoporosis[ICD9: 733.00] Diagnosis: Esophageal reflux[ICD9: 530.81] Diagnosis: Chronic pain[ICD9: 338.29] Araceli Silva MD, [facility] CPT- 4: 76352 07/12/2014 Plan of Care Planned Activity Notes Codes Status Date Visit Plan: Melena - hemorrhoidal tissue- discussed with pt and her daughter - rx for proctofoam and suppositories given to patient - 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 Avoid straining when having bowel movements. Monitor symptoms closely. 05/10/2018 Appointment: Araceli Silva WPtel: [facility] [address] (15 min) Moderate 05/10/2018 Patient Education: Patient [...] of miralax. 05/04/2018 Appointment: Araceli Silva WPtel: [facility]0 [facility] (15 min) Moderate 05/04/2018 Patient Education: Patient Medication Summary Completed 05/04/2018 Appointment: Araceli Silva WPtel: [facility]2 [facility] (15 min) Moderate 05/03/2018 Visit Plan: Gastroenteritis [...] stomach pain. 04/21/2018 Appointment: Maricel Gee WPtel: [facility]2 [facility] (30 min) Complex 04/21/2018 Patient Education: Patient [...] with fentanyl 03/03/2018 Appointment: Araceli Silva WPtel: [phone] [facility] (15 min) Moderate 03/03/2018 Patient Education: [...] - will send rx to [facility] 02/12/2018 Appointment: Ila Kennedy WPtel: [phone] [phone] (30 min) Complex 02/12/2018 Patient Education: Patient Medication Summary Completed 02/12/2018 Visit Plan: Chronic Pain Syndrome - pt has chronic pain - has been maintained on current medications, has not sought out other medications , only uses PRN pain medications as directed, and understands the consequences of over-medication. Djung-mfjlsagsyx-imetzlmf with lasix/metolazone -if swelling /weight increase, okay to increase metolazone to daily as directed Cough- okay for robitussin dm Diarrhea- rx for lomotil written and instructed on use-follow up in 3 weeks, sooner if needed. Call with any concerns. 02/09/2018 Appointment: Ila Kennedy WPtel: [phone] [phone] (30 min) Complex 02/09/2018 Patient Education: Patient Medication Summary Completed 02/09/2018 App[facility]ment: [phone] ([facility] min) Moderate 02/04/2018 Visit Plan: Edema/Lymphedema [...] of over-medication. 01/14/2018 Appointment: [phone] (15 min) Moderate 01/14/2018 Patient Education: Patient [...] oxycodone scheduled. 12/24/2017 Appointment: [phone] (30 min) Complex 12/24/2017 Patient Education: Patient [...] output. 11/30/2017 Appointment: Arac[facility] Silva [facility]: [phone] [...] over-medication. 11/10/2017 Appointment: [phone] (15 min) Moderate 11/10/2017 Patient [...] hands/fingers. We will contact [facility] in [place] for paperwork regarding the scooter. 10/29/2017 Appointment: [facility] Silva [phone] (15 min) Moderate 10/29/2017 Patient [...] time. 10/20/2017 Appointment: Araceli Silva [facility]el: [phone] [...] drained today. 09/29/2017 Appointment: Araceli Silva WPtel: [address] [place], [place] [address] (15 min) Moderate 09/29/2017 Patient Education: Patient [...] Summary Completed 08/21/2017 Appointment: [phone] (15 min) Moderate 08/20/2017 Visit Plan: Hemarthrosis shoulders - 250mL from left shoulder and 100mL from right shoulder with 1ml kenalog injected into right and left shoulders - Left and right shoulder pain and swelling, swelling into arms and left breast -pt to continue with use of compression sleeves. [id number] sep 2018 bristol 2ml kenalog 08/12/2017 Appointment: [...] peripheral edema. 08/05/2017 Appointment: [facility] Silva [facility]Ptel[phone] (15 min) Moderate 08/05/2017 Patient Education: Patient [...] peripheral edema. 07/23/2017 Appointment: Araceli Silva WPtel: [facility]5 [facility] [place] (15 min) Moderate 07/23/2017 Patient [...] monitor symptoms. 07/09/2017 Appointment: Araceli Silva WPtel: [facility] [place] (15 min) Moderate 07/09/2017 Patient Education: Patient Medication Summary Completed 07/09/2017 Referral: [facility] WPtel: Referral Initiated 07/08/2017 Visit [...] monitor symptoms. 07/01/2017 Appointment: Araceli Silva WPtel: [facility] [place] (15 min) Moderate 07/01/2017 Patient Education: Patient Medication Summary Completed 07/01/2017 Visit Plan: Chronic Pain Syndrome - pt has chronic pain - has been maintained on current medications, has not sought out other medications , only uses PRN pain medications as directed, and understands the consequences of over-medication. 06/24/2017 Appointment: Araceli Silva WPtel: [facility]5 [facility] (15 min) Moderate 06/24/2017 Patient Education: Patient [...] peripheral edema. 06/17/2017 Appointment: Araceli Silva WPtel: [facility]5 [facility] (30 min) Complex 06/17/2017 Patient Education: Patient Medication Summary Completed 06/17/2017 Appointment: Araceli Silva WPtel: [facility] (15 min) Moderate 06/08/2017 Care Plan: Referral Order SNOMED-CT : 061244097 Pending 06/02/2017 Visit Plan: Left and right [...] edema. 06/01/2017 Appointment: [phone] ([facility]) Complex 06/01/2017 Patient Education: Patient [...] shoulder 04/02/2017 Appointment: Araceli Silva WPtel: [phone] [facility] (15 min) Moderate 04/02/2017 Patient Education: Patient [...] stomach upset. 03/12/2017 Appointment: [facility] Silva [phone] (15 min) Moderate 03/12/2017 Patient Education: Patient [...] check ROMIE. 01/08/2017 Appointment: Araceli Silva WPtel: [phone] [facility] (15 min) Moderate 01/08/2017 Patient Education: Patient [...] Remicaide. 12/08/2016 Appointment: Araceli Silva WPtel: [phone] [facility] (15 min) Moderate 12/08/2016 Patient Education: [...] now 11/17/2016 Appointment: Araceli Silva WPtel: [phone] [facility] (15 min) Moderate 11/17/2016 Patient Education: [...] of over-medication. 11/10/2016 Appointment: Maricel Gee WPtel: [phone] [facility] (30 min) Complex 11/10/2016 Patient Education: Patient [...] immunosuppression. 11/05/2016 Appointment: Araceli Silva WPtel: [phone] [facility] (15 min) Moderate 11/05/2016 Patient Education: [...] cbc today. 10/07/2016 Appointment: Araceli Silva WPtel: [phone] [facility] [place] (15 min) Moderate 10/07/2016 Patient Education: Patient Medication Summary Completed 10/07/2016 Care Plan: Referral Order SNOMED-CT : [id number] Pending 10/07/2016 Care Plan: Referral Order SNOMED-CT : [id number] Pending 10/07/2016 Visit Plan: Hemarthrosis -right shoulder-only able to drain 5ml of bloody drainage-unable to give oral steroids due to recent GI bleed -will give kenalog injection today in the office-discussed getting OSMO patch 10/02/2016 Appointment: Ila Kennedy WPtel: [phone] [phone] [place] (30 min) Complex 10/02/2016 Patient Education: Patient Medication Summary Completed 10/02/2016 Appointment: Araceli Silva WPtel: [facility] [place] (15 min) Moderate 09/23/2016 Appointment: Araceli Silva WPtel: [facility] [place] (15 min) Moderate 09/17/2016 Visit Plan: Sacroiliitis - back exercises discussed with the patient, pt to continue with anti-inflammatories. Pt is to call if the symptoms do not improve or if they worsen. Kenalog injection today in the office. 09/12/2016 Appointment: Ila Kennedy WPtel: [phone] [place] (15 min) Moderate 09/12/2016 Patient Education: [...] Injection of kenalog 1mL - 40mg - [employer] - lot #[id number] , expires oct 2017 Chronic Pain Syndrome - pt has chronic pain - has been maintained on current medications, has not sought out other medications, only uses PRN pain medications as directed, and understands the consequences of over-medication. 09/08/2016 Appointment: Araceli Silva WPtel: [facility] (15 min) Moderate 09/08/2016 Patient Education: Patient [...] magnesium level 08/26/2016 Appointment: Araceli Silva WPtel: [facility] (15 min) Moderate 08/26/2016 Patient Education: [...] Summary Completed 08/18/2016 Appointment: Araceli Silva WPtel: [facility]3 [facility] (15 min) Moderate 08/13/2016 Appointment: Araceli Silva WPtel: [facility] (15 min) Moderate 08/06/2016 Visit Plan: [...] the daytime. 07/30/2016 Appointment: Araceli Silva WPtel: [facility]5 [facility] (15 min) Moderate 07/30/2016 Patient Education: Patient Medication Summary Completed 07/30/2016 Visit Plan: Left shoulder pain - improving - pt is to notify clinic if symptoms do not improve, if they worsen, or with any questions or concerns. Nocturia - will give samples, pt is to notify clinic if symptoms do not improve. 07/14/2016 Appointment: Maricel Gee WPtel: [facility]5 [facility] (30 min) Complex 07/14/2016 Patient Education: Patient [...] any dyspnea. 07/04/2016 Appointment: Maricel Gee WPtel: [facility] ([facility] Complex 07/04/2016 Patient Education: [...] over-medication. 05/28/2016 Appointment: [facility] Silva [phone] [place] (15 min) Moderate 05/28/2016 Patient Education: Patient Medication Summary Completed 05/28/2016 Patient Education: Hypertension Completed 05/28/2016 Appointment: Araceli Silva WPtel: [phone] [facility] [place] (15 min) Moderate 05/12/2016 Appointment: Araceli Silva WPtel: [phone] [facility] [place] (15 min) Moderate 04/15/2016 Appointment: Araceli Silva WPtel: 1011 [facility] [place] (30 min) Complex 03/25/2016 Visit [...] premarin. 03/18/2016 Appointment: Araceli Silva WPtel: [phone] [facility] [place] (30 min) Complex 03/18/2016 Patient Education: Patient Medication Summary Completed 03/18/2016 Appointment: Araceli Silva WPtel: [phone] [facility] [place] (15 min) Moderate 02/19/2016 Visit Plan: [...] of over-medication. 01/29/2016 Appointment: Araceli Silva WPtel: [phone] [facility] [place] (15 min) Moderate 01/29/2016 Patient Education: Patient Medication Summary Completed 01/29/2016 Visit Plan: Discussed MRI of the neck - pt is interested in doing this - however, not prior to changing her medication first to see if this helps her pain 01/01/2016 Appointment: Araceli Silva WPtel: [phone] [facility] [place] (15 min) Moderate 01/01/2016 Patient Education: Patient Medication Summary Completed 01/01/2016 Patient Education: Hypertension Completed 01/01/2016 Appointment: Araceli Silva WPtel: [phone] [facility] [place] (15 min) Moderate 12/03/2015 Visit [...] nonhealing. 11/01/2015 Appointment: Ila Kennedy WPtel: [phone] [phone] (15 min) Moderate 11/01/2015 Patient Education: Patient Medication Summary Completed 11/01/2015 Visit Plan: Chronic Pain Syndrome - pt has chronic pain - has been maintained on current medications, has not sought out other medications , only uses PRN pain medications as directed, and understands the consequences of over-medication. Muscle spasms - recommended muscle rub. 09/04/2015 Appointment: Araceli Silva WPtel: [facility]8 [facility] (15 min) Moderate 09/04/2015 Patient Education: Patient Medication Summary Completed 09/04/2015 Visit Plan: Ecchymosis/hematoma - improving - discussed natural progression of hematomas - watchful waiting. 2015 Appointment: Araceli Silva WPtel: [facility] [place] (15 min) Moderate 2015 Patient Education: Patient Medication Summary Completed 2015 Visit Plan: Cellulitis - continue with oral antibiotics as previously directed, return to clinic as previously directed, call for acute change in symptoms, worsening redness, warmth, discharge. 07/18/2015 Appointment: Ila Kennedy WPtel: [facility]4 [phone] [place] (30 min) Complex 07/18/2015 Patient Education: [...] center. 07/02/2015 Appointment: Araceli Silva WPtel: [phone] [facility] [place] (15 min) Moderate 07/02/2015 Patient Education: [...] ambulation. 04/09/2015 Appointment: Araceli Silva WPtel: [phone] [facility] (15 min) Moderate 04/09/2015 Patient Education: Patient [...] supplementation. 02/08/2015 Appointment: Arac[facility] Silva [facility]el: [facility] [...] the evening. 12/11/2014 Appointment: Araceli Silva WPtel: [address] [place] [address] (15 min) Moderate 12/11/2014 Patient Education: Patient [...] - improved. 11/09/2014 Appointment: Araceli Silva WPtel: [address] [place] [address] (15 min) Moderate 11/09/2014 Patient Education: Patient Medication Summary Completed 11/09/2014 Patient Education: Hypertension Completed 11/09/2014 Visit Plan: Leg pain/cellulitis of leg - start on the doxycycline twice daily - take this x 2 weeks, if the symptoms in your leg/ thigh are not completely resolved, there is a refill that is available. start on a probiotic one pill daily ([employer] or [employer]) this will help prevent the development of a bad type of diarrhea that can occur when taking antibiotics. Ulcer of toe - improving. 10/23/2014 Appointment: Araceli Silva WPtel: [facility] [address] (15 min) Moderate 10/23/2014 Patient Education: Patient Medication Summary Completed 10/23/2014 Visit Plan: Ulcer - keep lesion covered, antibiotic ointment to be used, monitor - call if redness increases or starts streaking up the foot. 10/16/2014 App[facility]ment: [phone] [id number] ([facility] min) Moderate 10/16/2014 Patient Education: Patient [...] edema. 09/14/2014 Appointment: [phone] [id number] Follow up 09/14/2014 Patient Education: Patient Medication [...] over- medication. 07/12/2014 Appointment: Araceli Silva WPtel: [id number] [place] New Patient 07/12/2014 Patient Education: Patient Medication Summary Completed 07/12/2014 Patient Education: Hypertension Completed 07/12/2014 Referral: Dr Virgen Referral Completed Referral: External, Ordering Provider Referral Completed Referral: [facility] [place] [facility] WPtel: Referral Initiated Instructions Comment . Hemarthrosis -right shoulder-only able to drain 5ml of bloody drainage-unable to give oral steroids due to recent GI bleed-will give kenalog injection today in the office-discussed getting OSMO patch . Hemarthrosis shoulders - 175mL from left [...] - continue with vitamin d supplementation. . Left shoulder pain - improving - [...] start on a probiotic one pill daily ([employer] or [employer]) this will help prevent the development of a bad type of diarrhea that can occur when taking antibiotics. . Leg pain/cellulitis of leg - start on the doxycycline twice daily - take this x 2 weeks, if the symptoms in your leg/thigh are not completely resolved, there is a refill that is available. start on a probiotic one pill daily ([employer] or [employer]) this will help prevent the development of [...] Injection of kenalog 1mL - 40mg - [employer] - lot #[id number] , expires oct 2017 Chronic Pain Syndrome [...] call if worsening. Edema - improved. . Chronic neck pain, arthritis, right arm [...] of stomach upset or stomach pain. . Bronchitis - acute case of bronchitis identified. Pt has been given antibiotics, breathing treatments as appropriate, and pt has been instructed to call if symptoms are not improved, or if symptoms acutely worsen. . Lymphedema of upper and lower extremities [...] increases or starts streaking up the foot. bumex daily in the afternoon . Edema-worsening- [...] symptoms of worsening infection or nonhealing. . Hemarthrosis shoulders - 200mL from left [...] stable on fentanyl - monitor symptoms. . Chronic Pain Syndrome - pt has [...] hands/fingers. We will contact [facility] in [place] for paperwork regarding the scooter. . Hypertension [...] help to decrease the bladder spasms . Sacroiliitis - back exercises discussed with the patient , pt to continue with anti-inflammatories. Pt is to call if the symptoms do not improve or if they worsen. Kenalog injection today in the office. . Lymphedema of upper and lower extremities [...] of breath -will [facility] rx to [facility] will be due in Oct. [...] to continue with use of compression sleeves. [id number] sep 2018 bristol 2ml kenalog . Edema/Lymphedema [...] pain syndrome - continue with fentanyl . Tick Bite - pt given script for treatment of infected tick bite, call for symptoms of worsening infection or nonhealing. . 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 Avoid [...] directed, and understands the consequences of over-medication. Xnuuu-[id number]-durffaiy with lasix/metolazone -if swelling/weight increase, okay to [...] to further attempt to reduce peripheral edema. two old goats muscle rub from [employer] [facility] home. . Chronic Pain Syndrome [...]
[2018-06-03] MEDS ORDERED: HYDR30CR69 TOP (15:56)
[2018-06-03] MEDS ORDERED: ONDA4TAB11 PO (15:56)
[2018-06-03] MEDS ORDERED: GABA-486 PO (15:56)
[2018-06-03] MEDS ORDERED: CHOL20002 PO (15:56)
[2018-06-03] MEDS ORDERED: DIPH1TAB25 PO (15:56)
--- NOTE | 2018-06-03 15:59 | NUR ---
PATIENT HAD A DETAILED MEDICATION LIST, I WENT OVER THAT LIST WELL COMPARING TO THE EXT MED HX AND SHE VERIFIED HOW SHE TAKES EACH MEDICATION. SEE LIST ON CHART FOR MORE DETAILS.
--- OUTSIDE RECORDS SUMMARY | 2018-06-03 15:59 | XMS REPORT | CCD ---
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 Name Role Phone PP Unavailable CCM Unavailable Summary Purpose Interface Exchange Insurance Providers Payer name Policy type / Coverage type Covered democrat ID Effective Begin Date Effective End Date [employer] [employer] Medicare Part B [id number] 2017 Unknown AETNA Medicare Part B [id number] Unknown Family history Father Diagnosis Age At [...] Unknown Retired 07/12/[address]: 7314027 Quit over 10 years ago 1967 07/12/2014 [...] Start Date Stop Date Status Fill Instructions Proctocort 30 mg rectal suppository RxNorm: 3068784 1 Suppository RTL daily x 1 wk then daily prn hemorrhoids 05/10/2018 No Stop Date Active fentanyl 100 mcg/hr transdermal patch RxNorm: 166475 1 Patch TD Q72H 05/07/2018 06/05/2018 Active prednisone 10 mg tablet RxNorm: 649627 1 Tablet(s) PO UD 2 tabs daily x 1 week then decrease to 1 pill daily x 1 week then go back to 5mg daily 05/04/2018 05/24/2018 Active gabapentin 100 mg capsule RxNorm: 835219 1 Capsule(s) PO at bedtime x 1 week then increase up to one pill twice daily x 1 wk then TID thereafter 05/04/2018 08/31/2018 Active ondansetron 4 mg disintegrating tablet RxNorm: 499541 1 Tablet(s) PO TID as needed nausea and vomitting 04/21/2018 Active promethazine 25 mg tablet RxNorm: 747708 1 Tablet(s) PO TID as needed nausea and vomitting 04/21/2018 05/20/2018 Active promethazine 25 mg/mL injection solution RxNorm: 755035 Milliliter(s) Inj 04/21/2018 04/21/2018 Inactive ondansetron 4 mg disintegrating tablet RxNorm: 948088 1 Tablet(s) PO TID as needed nausea and vomitting 04/21/2018 Inactive promethazine 25 mg tablet RxNorm: 734889 1 Tablet(s) PO TID as needed nausea and vomitting 04/21/2018 04/25/2018 Inactive metolazone 10 mg tablet RxNorm: 913850 1 Tablet(s) PO every other day uncontrolled edema 04/08/2018 12/03/2018 Active fentanyl 100 mcg/hr transdermal patch RxNorm: 873594 1 Patch TD Q72H use with 25mcg/hr patch 04/07/2018 05/06/2018 Inactive fentanyl 25 mcg/hr transdermal patch RxNorm: 587572 1 Patch TD Q72H use with 100mcg patch for a total of 125mcg daily 04/07/2018 05/03/2018 Inactive potassium chloride ER 10 mEq tablet,extended release(part/ cryst) RxNorm: 1848037 2 Tablet(s) PO TID 03/30/2018 07/27/2018 Active oxycodone 30 mg tablet RxNorm: 4594976 1/2 Tablet(s) PO Q6 05/15/2018 Active fentanyl 25 mcg/hr transdermal patch RxNorm: 471882 1 Patch TD Q72H use with 100mcg patch for a total of 125mcg daily 03/17/2018 04/06/2018 Inactive Lasix 40 mg tablet RxNorm: 852092 Tablet(s) PO TAKE 1 TABLET BY MOUTH TWICE DAILY 03/04/2018 No Stop Date Active fentanyl 100 mcg/hr transdermal patch RxNorm: 328856 1 Patch TD Q72H use with 25mcg/hr patch 03/03/2018 04/01/2018 Inactive potassium chloride ER 10 mEq capsule,extended release RxNorm: 574811 2 Capsule(s) PO TID 03/03/2018 03/29/2018 Inactive albuterol sulfate 2.5 mg/3 mL (0.083 %) solution for nebulization RxNorm: 178473 3 Milliliter(s) INH Q4 PRN 02/18/2018 No Stop Date Active cefdinir 300 mg capsule RxNorm: 764443 1 Capsule(s) PO BID 02/24/2018 Inactive cefdinir 300 mg capsule RxNorm: 876407 1 Capsule(s) PO BID 02/17/2018 Inactive Flonase Allergy Relief 50 mcg/actuation nasal spray, suspension RxNorm: 9072101 2 [place] NASAL daily 02/12/20182017 Inactive Zithromax Z-Humberto 250 mg tablet RxNorm: 635532 1 Tablet(s) PO UD 02/12/2018 02/16/2018 Inactive Lomotil 2.5 mg-0.025 mg tablet RxNorm: 0223897 1 Tablet(s) PO BID PRN 02/09/2018 No Stop Date Active fentanyl 25 mcg/hr transdermal patch RxNorm: 925766 1 Patch TD Q72H use with 100mcg patch for a total of 125mcg daily 02/09/2018 03/10/2018 Inactive oxycodone 30 mg tablet RxNorm: 4213683 1/2 Tablet(s) PO Q6 03/14/2018 Inactive metolazone 10 mg tablet RxNorm: 653445 1 Tablet(s) PO QAM as needed uncontrolled edema 01/14/2018 03/14/2018 Inactive fentanyl 100 mcg/hr transdermal patch RxNorm: 096859 1 Patch TD Q72H use with 25mcg/hr patch 01/14/2018 02/12/2018 Inactive fentanyl 25 mcg/hr transdermal patch RxNorm: 233915 1 Patch TD Q72H use with 100mcg patch for a total of 125mcg daily 01/14/2018 02/08/2018 Inactive metolazone 10 mg tablet RxNorm: 017415 1 Tablet(s) PO every other day as needed uncontrolled edema 01/07/2018 01/13/2018 Inactive metolazone 10 mg tablet RxNorm: 151394 1 Tablet(s) PO every other day as needed uncontrolled edema 01/07/2018 01/06/2018 Inactive Cipro 500 mg tablet RxNorm: 176773 1 Tablet(s) PO BID 201701/05/2018 Inactive Cipro 500 mg tablet RxNorm: 842599 1 Tablet(s) PO BID 201701/15/2018 Inactive Cardizem CD 360 mg capsule,extended release RxNorm: 761711 1 Capsule(s) PO daily 01/05/2018 05/04/2018 Inactive potassium chloride ER 10 mEq tablet,extended release(part/ cryst) RxNorm: 7784040 2 Capsule(s) PO TID when taking lasix 01/05/2018 05/04/2018 Inactive potassium chloride ER 10 mEq capsule,extended release RxNorm: 490198 Capsule(s) TAKE 1 CAPSULE BY MOUTH TWICE DAILY WHEN TAKING LASIX (FUROSEMIDE) 11/27/2017 03/02/2018 Inactive potassium chloride ER 10 mEq capsule,extended release RxNorm: 384082 Capsule(s) TAKE 1 CAPSULE BY MOUTH TWICE DAILY WHEN TAKING LASIX (FUROSEMIDE) 11/27/2017 11/26/2017 Inactive fentanyl 25 mcg/hr transdermal patch RxNorm: 749901 1 Patch TD Q72H use with 100mcg patch for a total of 125mcg daily 11/27/2017 12/26/2017 Inactive bumetanide 0.5 mg tablet RxNorm: 521357 1 Tablet(s) PO daily 12/23/2017 Inactive in the afternoon x 3 days then as needed per Dr Silva fentanyl 100 mcg/hr transdermal patch RxNorm: 215751 1 Patch TD Q72H use with 25mcg/hr patch 11/27/2017 12/26/2017 Inactive oxycodone 30 mg tablet RxNorm: 9452850 1/2 Tablet(s) PO Q6 12/27/2017 Inactive fentanyl 100 mcg/hr transdermal patch RxNorm: 316243 1 Patch TD Q72H use with 25mcg/hr patch 10/29/2017 11/26/2017 Inactive Lasix 20 mg tablet RxNorm: 343704 TAKE 1 TABLET BY MOUTH TWICE DAILY 10/29/2017 03/03/2018 Inactive fentanyl 25 mcg/hr transdermal patch RxNorm: 541567 1 Patch TD Q72H use with 100mcg patch for a total of 125mcg daily 10/29/2017 11/26/2017 Inactive pantoprazole 40 mg tablet,delayed release RxNorm: 904745 Tablet(s) Take 1 tablet by mouth daily 10/21/2017 04/18/2018 Inactive - Ref: [id number] potassium chloride ER 10 mEq capsule,extended release RxNorm: 354609 TAKE 1 CAPSULE BY MOUTH TWICE DAILY WHEN TAKING LASIX (FUROSEMIDE) 10/09/2017 11/26/2017 Inactive fentanyl 25 mcg/hr transdermal patch RxNorm: 983985 1 Patch TD Q72H use with 100mcg patch for a total of 125mcg daily 10/01/2017 10/28/2017 Inactive fentanyl 100 mcg/hr transdermal patch RxNorm: 790183 1 Patch TD Q72H use with 25mcg/hr patch 10/01/2017 10/28/2017 Inactive potassium chloride ER 10 mEq tablet,extended release(part/ cryst) RxNorm: 0573876 1 Capsule(s) PO BID when taking lasix 09/22/2017 01/04/2018 Inactive fentanyl 100 mcg/hr transdermal patch RxNorm: 485531 1 Patch TD Q72H use with 25mcg/hr patch 08/31/2017 09/29/2017 Inactive Kenalog 40 mg/mL suspension for injection RxNorm: 9563934 1 Milliliter(s) Inj 08/31/2017 08/31/2017 Inactive fentanyl 25 mcg/hr transdermal patch RxNorm: 621203 1 Patch TD Q72H use with 100mcg patch for a total of 125mcg daily 08/31/2017 09/29/2017 Inactive oxycodone 30 mg tablet RxNorm: 8951435 1/2 Tablet(s) PO Q6 04/201710/28/2017 Inactive cyanocobalamin (vit B-12) 1,000 mcg/mL injection solution RxNorm: 388096 1 Milliliter(s) Inj monthly 08/21/201708/15 Active please provide her with syringe/needle for injection cyanocobalamin (vit B-12) 1,000 mcg/mL injection solution RxNorm: 071216 1 Milliliter(s) Inj monthly 08/21/201708/20 Inactive please provide her with syringe/needle for injection Kenalog 40 mg/mL suspension for injection RxNorm: 6323108 2 Milliliter(s) Inj 1mL in each shoulder 08/21/2017 08/21/2017 Inactive cyanocobalamin (vit B-12) 1,000 mcg/mL injection solution RxNorm: 957147 1 Milliliter(s) Inj monthly 08/21/201708/20 Inactive please provide her with syringe/needle for injection Kenalog 40 mg/mL suspension for injection RxNorm: 3045225 2 Milliliter(s) Inj UD 08/12/2017 08/12/2017 Inactive fentanyl 25 mcg/hr transdermal patch RxNorm: 174250 1 Patch TD Q72H use with 100mcg patch for a total of 125mcg daily 08/05/2017 08/30/2017 Inactive fentanyl 100 mcg/hr transdermal patch RxNorm: 429835 1 Patch TD Q72H use with 25mcg/hr patch 08/05/2017 08/30/2017 Inactive Kenalog 40 mg/mL suspension for injection RxNorm: 0623348 2 Milliliter(s) Inj 1mL per shoulder 08/05/2017 08/05/2017 Inactive clindamycin HCl 150 mg capsule RxNorm: 282974 1 Capsule(s) PO QID Dr Shultz prescribed 07/23/2017 07/29/2017 Inactive prednisone 5 mg tablet RxNorm: 268910 1 Tablet(s) PO daily 11/201707/03/2018 Active fentanyl 25 mcg/hr transdermal patch RxNorm: 101431 1 Patch TD Q72H use with 100mcg patch for a total of 125mcg daily 07/01/2017 07/30/2017 Inactive Lasix 20 mg tablet RxNorm: 829007 1 Tablet(s) PO BID 201710/28/2017 Inactive fentanyl 100 mcg/hr transdermal patch RxNorm: 309624 1 Patch TD Q72H use with 25mcg/hr patch 07/01/2017 07/30/2017 Inactive potassium chloride ER 10 mEq capsule,extended release RxNorm: 448903 1 Capsule(s) PO BID when taking lasix 07/01/20172017 Inactive oxycodone 30 mg tablet RxNorm: 2666799 1/2 Tablet(s) PO Q6 08/22/2017 Inactive fentanyl 100 mcg/hr transdermal patch RxNorm: 864585 1 Patch TD Q72H use with 25mcg/hr patch 05/07/2017 06/05/2017 Inactive fentanyl 25 mcg/hr transdermal patch RxNorm: 200302 1 Patch TD Q72H use with 100mcg patch for a total of 125mcg daily 05/07/2017 06/05/2017 Inactive fentanyl 100 mcg/hr transdermal patch RxNorm: 183834 1 Patch TD Q72H 04/08/2017 05/06/2017 Inactive fentanyl 25 mcg/hr transdermal patch RxNorm: 529129 1 Patch TD Q72H use with 100mcg patch for a total of 125mcg daily 04/08/2017 05/06/2017 Inactive Kenalog 40 mg/mL suspension for injection RxNorm: 4365817 1.5 Milliliter(s) Inj 04/02/2017 04/02/2017 Inactive fentanyl 100 mcg/hr transdermal patch RxNorm: 846231 1 Patch TD Q72H 03/12/2017 04/07/2017 Inactive fentanyl 25 mcg/hr transdermal patch RxNorm: 682483 1 Patch TD Q72H use with 100mcg patch for a total of 125mcg daily 03/12/2017 04/07/2017 Inactive oxycodone 30 mg tablet RxNorm: 4060449 1/2 Tablet(s) PO Q6 09/201704/07/2017 Inactive cyanocobalamin (vit B-12) 1,000 mcg/mL injection syringe RxNorm: 515061 1 Milliliter(s) Inj monthly 02/16/2017 No Stop Date Active please provide with supplys needed for injection fentanyl 100 mcg/hr transdermal patch RxNorm: 161297 1 Patch TD Q72H 02/06/2017 03/07/2017 Inactive Myrbetriq 50 mg tablet,extended release RxNorm: 9769950 1 Tablet(s) PO QPM 12/11/2016 07/22/2017 Inactive oxycodone 30 mg tablet RxNorm: 9043346 1/2 Tablet(s) PO Q6 10/201601/06/2017 Inactive naproxen 500 mg tablet RxNorm: 534257 1 Tablet(s) PO BID Take 1 tablet by mouth two times daily as needed 12/08/201607/08 Inactive - First Attempt Ref: [id number] Myrbetriq 50 mg tablet,extended release RxNorm: 8400070 1 Tablet(s) PO QPM 11/17/2016 12/10/2016 Inactive fentanyl 100 mcg/hr transdermal patch RxNorm: 731459 1 Patch TD Q72H 11/12/2016 12/11/2016 Inactive Vesicare 10 mg tablet RxNorm: 620172 1 Tablet(s) PO QPM 201611/18/2016 Inactive oxycodone 10 mg tablet RxNorm: 0135382 1-2 Tablet(s) PO Q4 PRN as needed to take between 30mg dose if needed for extra pain control 201612/07/2016 Inactive fentanyl 75 mcg/hr transdermal patch RxNorm: 855352 1 TD Q72H 10/22/2016 11/10/2016 Inactive oxycodone 10 mg tablet RxNorm: 3652958 1-2 Tablet(s) PO Q4 PRN as needed to take between 30mg dose if needed for extra pain control 201611/04/2016 Inactive Kenalog 40 mg/mL suspension for injection RxNorm: 5607412 1 Milliliter(s) Inj 10/02/2016 10/02/2016 Inactive Kenalog 40 mg/mL suspension for injection RxNorm: 6458685 1 Milliliter(s) Inj 09/12/2016 09/12/2016 Inactive cyclobenzaprine 5 mg tablet RxNorm: 282475 1 Tablet(s) PO Q8 as needed muscle spasms 09/11/2016 07/22/2017 Inactive prednisone 10 mg tablets in a dose pack RxNorm: 365652 1 Tablet(s) PO UD 09/09/2016 06/23/2017 Inactive potassium chloride ER 10 mEq capsule,extended release RxNorm: 125783 1 Capsule(s) PO BID as needed when taking lasix 08/26/2016 06/30/2017 Inactive Lasix 20 mg tablet RxNorm: 777661 1 Tablet(s) PO BID daily x 10 days then as needed edema 08/26/2016 12/23/2016 Inactive naproxen 500 mg tablet RxNorm: 559447 Take 1 tablet by mouth two times daily as needed 08/18/2016 11/15/2016 Inactive - First Attempt Ref: [id number] Lasix 20 mg tablet RxNorm: 993056 1 Tablet(s) PO QAM daily x 10 days then as needed edema 08/18/2016 08/25/2016 Inactive Vesicare 5 mg tablet RxNorm: 063909 1 Tablet(s) PO QPM 201611/04/2016 Inactive potassium chloride ER 10 mEq capsule,extended release RxNorm: 760560 1 Capsule(s) PO QAM as needed when taking lasix 08/18/2016 08/25/2016 Inactive Myrbetriq 25 mg tablet,extended release RxNorm: 8666841 1 Tablet(s) PO QHS 07/14/2016 07/29/2016 Inactive pantoprazole 40 mg tablet,delayed release RxNorm: 836978 Take 1 tablet by mouth daily 06/30/2016 12/26/2016 Inactive - Ref: [id number] Embeda 20 mg-0.8 mg capsule, extend release, oral only RxNorm: 570962 1 Capsule(s ) PO daily 06/04/2016 06/03/2016 Inactive Embeda 20 mg-0.8 mg capsule, extend release, oral only RxNorm: 753666 1 Capsule(s ) PO daily 06/04/2016 07/01/2016 Inactive oxycodone 10 mg tablet RxNorm: 9463018 1 Tablet(s) PO QID as needed to take between 30mg dose if needed for extra pain control 201606/10/2016 Inactive oxycodone 30 mg tablet RxNorm: 6920848 1 Tablet(s) PO Q6 201611/04/2016 Inactive cyanocobalamin (vit B-12) 1,000 mcg/mL injection solution RxNorm: 456120 1 Milliliter(s) Inj monthly 02/22/201602/15 Inactive she also needs syringes/ needles for this solution QS oxycodone 30 mg tablet RxNorm: 2950948 1 Tablet(s) PO Q6 201503/19/2016 Inactive oxycodone 10 mg tablet RxNorm: 1925165 1 Tablet(s) PO QID as needed to take between 30mg dose if needed for extra pain control 201503/19/2016 Inactive oxycodone 10 mg tablet RxNorm: 5102585 1 Tablet(s) PO QID as needed to take between 30mg dose if needed for extra pain control 201502/18/2016 Inactive oxycodone 30 mg tablet RxNorm: 7845106 1 Tablet(s) PO Q6 201502/18/2016 Inactive pantoprazole 40 mg tablet,delayed release RxNorm: 310558 Take 1 tablet by mouth daily 01/22/2016 06/29/2016 Inactive - First Attempt Ref: [id number] oxycodone 30 mg tablet RxNorm: 2548300 1 Tablet(s) PO Q6 201501/28/2016 Inactive oxycodone 10 mg tablet RxNorm: 6605973 1 Tablet(s) PO QID as needed take between 20mg dose if needed for extra pain control 11/07/2015 12/06/2015 Inactive oxycodone 20 mg tablet RxNorm: 1399062 1 Tablet(s) PO Q6 as needed 11/07/2015 12/31/2015 Inactive doxycycline hyclate 100 mg tablet RxNorm: 810175 1 Tablet(s) PO BID 11/01/2015 11/10/2015 Inactive potassium chloride ER 10 mEq capsule,extended release RxNorm: 770491 1 Capsule(s) PO TIW as needed when taking lasix 09/04/2015 08/17/2016 Inactive Voltaren 1 % topical gel RxNorm: 480907 2 Gram(s) TOP QID 08/2909/03/2015 Inactive pa approved Voltaren 1 % topical gel RxNorm: 449124 2 Gram(s) TOP QID 08/0808/29/2015 Inactive naproxen 500 mg tablet RxNorm: 206503 1 Tablet(s) PO BID 201508/17/2016 Inactive naproxen 500 mg tablet RxNorm: 990651 1 Tablet(s) PO BID 201508/08/2015 Inactive doxycycline hyclate 100 mg tablet RxNorm: 694580 1 Tablet(s) PO BID do not take calcium/vitamin d while on antibiotic 07/18/2015 07/31/2015 Inactive Vitamin D2 50,000 unit capsule RxNorm: 195507 1 Capsule(s) PO QW 07/02/2015 11/18/2015 Inactive Premarin 0.3 mg tablet RxNorm: 890920 1 Tablet(s) PO daily 12/201505/09/2015 Inactive Premarin 0.3 mg tablet RxNorm: 809835 1 Tablet(s) PO daily 12/201503/17/2016 Inactive simvastatin 40 mg tablet RxNorm: 897623 1 Tablet(s) PO daily 03/17/2016 Inactive spironolactone 25 mg tablet RxNorm: 967336 TAKE ONE TABLET BY MOUTH DAILY 05/07/2015 05/27/2016 Inactive potassium chloride ER 10 mEq capsule,extended release RxNorm: 040525 1 Capsule(s) PO TIW as needed when taking lasix 04/17/2015 09/03/2015 Inactive alendronate 70 mg tablet RxNorm: 583269 1 Tablet(s) PO weekly QW 04/17/2015 07/01/2015 Inactive Vitamin D2 50,000 unit capsule RxNorm: 073075 1 Capsule(s) PO QW 03/30/2015 06/27/2015 Inactive Vitamin D2 50,000 unit capsule RxNorm: 686318 1 Capsule(s) PO QW 03/21/2015 03/29/2015 Inactive cyanocobalamin (vit B-12) 1,000 mcg/mL injection solution RxNorm: 589276 1 Milliliter(s) Inj monthly 03/19/201502/20 Inactive cyanocobalamin (vit B-12) 1,000 mcg/mL injection solution RxNorm: 407531 1 Milliliter(s) Inj monthly 03/16/201503/18 Inactive cyanocobalamin (vit B-12) 1,000 mcg/mL injection solution RxNorm: 402373 1 Milliliter(s) Inj monthly 03/16/201503/15 Inactive pantoprazole 40 mg tablet,delayed release RxNorm: 260526 1 Tablet(s) PO daily 03/05/2015 01/21/2016 Inactive Lasix 20 mg tablet RxNorm: 049552 1 Tablet(s) PO TIW as needed edema 02/08/2015 02/02/2016 Inactive oxycodone 10 mg tablet RxNorm: 1920545 1 Tablet(s) PO QID as needed take between 20mg dose if needed for extra pain control 11/09/2014 12/08/2014 Inactive oxycodone 20 mg tablet RxNorm: 8014931 1 Tablet(s) PO Q6 as needed 10/25/2014 11/06/2015 Inactive doxycycline hyclate 100 mg tablet RxNorm: 388959 1 Tablet(s) PO BID 10/23/2014 11/19/2014 Inactive Cipro 500 mg tablet RxNorm: 920685 1 Tablet(s) PO BID 201410/16/2014 Inactive Cipro 500 mg tablet RxNorm: 181158 1 Tablet(s) PO BID 201410/09/2014 Inactive oxycodone 20 mg tablet RxNorm: 3541812 1 Tablet(s) PO Q6 as needed 09/25/2014 10/24/2014 Inactive Lasix 20 mg tablet RxNorm: 063929 1 Tablet(s) PO TIW as needed edema 09/14/2014 01/11/2015 Inactive potassium chloride ER 10 mEq capsule,extended release RxNorm: 245302 1 Capsule(s) PO TIW as needed when taking lasix 09/14/2014 01/11/2015 Inactive doxycycline hyclate 100 mg tablet RxNorm: 654117 1 Tablet(s) PO BID 09/05/2014 09/14/2014 Inactive doxycycline hyclate 100 mg tablet RxNorm: 809867 1 Tablet(s) PO BID 09/05/2014 09/04/2014 Inactive oxycodone 20 mg tablet RxNorm: 0889344 1 Tablet(s) PO Q6 as needed 08/29/2014 09/24/2014 Inactive spironolactone 25 mg tablet RxNorm: 419348 1 Tablet(s) PO daily 08/11/2014 03/08/2015 Inactive oxycodone 20 mg tablet RxNorm: 4107681 1 Tablet(s) PO Q6 as needed 08/02/2014 08/28/2014 Inactive Vitamin D3 2,000 unit tablet RxNorm: 001565 1 Tablet(s) PO daily 07/14/2014 No Stop Date Active Vitamin D2 50,000 unit capsule RxNorm: 118170 1 Capsule(s) PO QW 07/14/2014 10/11/2014 Inactive Vitamin D2 50,000 unit capsule RxNorm: 193268 1 Capsule(s) PO QW 07/14/2014 07/13/2014 Inactive Prolia 60 mg/mL subcutaneous syringe RxNorm: 539558 Milliliter(s) SQ EVERY 6 MONTHS No Start Date Active Carafate 1 gram tablet RxNorm: 379490 1 Tablet(s) PO BID No Start Date Active Miralax oral RxNorm: 191469 oral No Start Date Active Stool Softener oral RxNorm: 24040 oral No Start Date Active Calcium + Vitamin D oral RxNorm: 4018 oral No Start Date Active naproxen 500 mg tablet RxNorm: 100820 1 Tablet(s) PO BID No Start Date 08/05/2015 Inactive albuterol sulfate 2.5 mg/3 mL (0.083 %) solution for nebulization RxNorm: 888293 3 Milliliter(s) INH Q4 PRN No Start Date 02/17/2018 Inactive oxycodone 20 mg tablet RxNorm: 8800724 1 Tablet(s) PO Q6 as needed No Start Date 08/01/2014 Inactive aspirin 81 mg tablet RxNorm: 801114 1 Tablet(s) PO daily No Start Date 07/22/2017 Inactive simvastatin 40 mg tablet RxNorm: 595659 1 Tablet(s) PO daily No Start Date 05/09/2015 Inactive cyanocobalamin (vit B-12) 1,000 mcg/mL injection syringe RxNorm: 912357 1 Inj monthly No Start Date 02/15/2017 Inactive Reglan 10 mg tablet RxNorm: 957600 1 Tablet(s) PO as needed No Start Date 07/29/2016 Inactive alendronate 70 mg tablet RxNorm: 269560 1 Tablet(s) PO weekly No Start Date 04/16/2015 Inactive Protonix 40 mg tablet,delayed release RxNorm: 515474 1 Tablet(s) PO daily No Start Date 03/04/2015 Inactive cyclobenzaprine 5 mg tablet RxNorm: 436158 1 Tablet(s) PO Q8 as needed muscle spasms No Start Date 09/10/2016 Inactive Vitamin D3 1,000 unit capsule RxNorm: 843770 1 Capsule(s) PO daily No Start Date 07/13/2014 Inactive Cardizem CD 360 mg capsule,extended release RxNorm: 179314 1 Capsule(s) PO daily No Start Date 01/04/2018 Inactive prednisone 10 mg tablets in a dose pack RxNorm: 310531 1 Tablet(s) PO UD No Start Date 09/08/2016 Inactive Medication Administered Medication Codes Instructions Start Date Status promethazine 25 mg/mL injection solution RxNorm: 584044 Milliliter 04/21/2018 No longer Active Kenalog 40 mg/mL suspension for injection RxNorm: 9922598 1Milliliter 08/31/2017 No longer Active Kenalog 40 mg/mL suspension for injection RxNorm: 9733635 2Milliliter 08/21/2017 No longer Active Kenalog 40 mg/mL suspension for injection RxNorm: 8508000 2MilliliterUD 08/12/2017 No longer Active Kenalog 40 mg/mL suspension for injection RxNorm: 7352395 2Milliliter 08/05/2017 No longer Active Kenalog 40 mg/mL suspension for injection RxNorm: 6067595 1.5Milliliter 04/02/2017 No longer Active Kenalog 40 mg/mL suspension for injection RxNorm: 2873342 1Milliliter 10/02/2016 No longer Active Kenalog 40 mg/mL suspension for injection RxNorm: 2614957 1Milliliter 09/12/2016 No longer Active Immunizations Vaccine [...] Item Item Code Result Date Comp Metabolic Rkw672 NA 134 mEq/L 03/03/2018 Comp Metabolic Uqr788 K 3.3 mEq/L 03/03/2018 Comp Metabolic Qpk443 CL 90 mEq/L 03/03/2018 Comp Metabolic Zcc610 CO2 33.0 mEq/L 03/03/2018 Comp Metabolic Urd758 ANION GAP 14 03/03/2018 Comp Metabolic Ltv201 GLUCOSE 146 mg/dL 03/03/2018 Comp Metabolic Gfy256 Creat 1.7 mg/dL 03/03/2018 Comp Metabolic Nwo637 eGFR 31 ml/min/1.73m2 03/03/2018 Comp Metabolic Hjq904 BUN 74 mg/dL 03/03/2018 Comp Metabolic Egm768 B/C Ratio 43.8 Ratio 03/03/2018 Comp Metabolic Zit786 CALCIUM 8.6 mg/dL 03/03/2018 Comp Metabolic Efc083 ALK PHOS 70 U/L 03/03/2018 Comp Metabolic Emg070 AST(SGOT) 14 U/L 03/03/2018 Comp Metabolic Drr246 ALT(SGPT) 9 U/L 03/03/2018 Comp Metabolic Xnn414 BILI T 0.6 mg/dL 03/03/2018 Comp Metabolic Wpp803 ALBUMIN 3.8 g/dL 03/03/2018 Comp Metabolic Zne980 TPRO 6.7 g/dL 03/03/2018 Comp Metabolic Eau078 GLOB 2.9 g/dL 03/03/2018 Comp Metabolic Hpv128 A/G Ratio 1.3 Ratio 03/03/2018 Comp Metabolic Lna970 Osmo 293 mOsmo 03/03/2018 Cbc With Differential [...] 29.9 pg 03/03/2018 Cbc With Differential Ord2 [place]% 11.1 % 03/03/2018 Cbc With Differential Ord2 [...] 1.38 K/ul 03/03/2018 Cbc With Differential Ord2 [place] ABS# 0.9 K/ul 03/03/2018 Cbc With Differential Ord2 Eos ABS# 0.0 K/ul 03/03/2018 Cbc With Differential Ord2 Baso ABS# 0.1 K/ul 03/03/2018 Tibc Ord40 Iron 75 ug/dl 10/22/2017 Tibc Ord40 UIBC 270 ug/dL 10/22/2017 Tibc Ord40 TIBC 345 ug/dL 10/22/2017 Tibc Ord40 Fe-%Sat 21.7 % 10/22/2017 Prealbumin 920038 PREALBUMIN 33 mg/dL 10/21/2017 Comp Metabolic Pnf248 NA 134 mEq/L 10/20/2017 Comp Metabolic Kvu412 K 3.7 mEq/L 10/20/2017 Comp Metabolic Dvu419 CL 93 mEq/L 10/20/2017 Comp Metabolic Zhq339 CO2 29.0 mEq/L 10/20/2017 Comp Metabolic Yud054 ANION GAP 16 10/20/2017 Comp Metabolic Sur596 GLUCOSE 115 mg/dL 10/20/2017 Comp Metabolic Wpb268 Creat 0.8 mg/dL 10/20/2017 Comp Metabolic Kfi931 eGFR 73 ml/min/1.73m2 10/20/2017 Comp Metabolic Yqm964 BUN 46 mg/dL 10/20/2017 Comp Metabolic Wph485 B/C Ratio 57.5 Ratio 10/20/2017 Comp Metabolic Kuu285 CALCIUM 8.7 mg/dL 10/20/2017 Comp Metabolic Mnk311 ALK PHOS 56 U/L 10/20/2017 Comp Metabolic Uqh233 AST(SGOT) 19 U/L 10/20/2017 Comp Metabolic Zlf756 ALT(SGPT) 23 U/L 10/20/2017 Comp Metabolic Nvt084 BILI T 0.6 mg/dL 10/20/2017 Comp Metabolic Lgd984 ALBUMIN 4.0 g/dL 10/20/2017 Comp Metabolic Auu928 TPRO 6.6 g/dL 10/20/2017 Comp Metabolic Rfq318 GLOB 2.7 g/dL 10/20/2017 Comp Metabolic Yml040 A/G Ratio 1.5 Ratio 10/20/2017 Comp Metabolic Huv030 Osmo 281 mOsmo 10/20/2017 Tsh Ord6 TSH [...] 35.4 pg 10/20/2017 Cbc With Differential Ord2 [place]% 9.9 % 10/20/2017 Cbc With Differential Ord2 [...] 1.15 K/ul 10/20/2017 Cbc With Differential Ord2 [place] ABS# 0.6 K/ul 10/20/2017 Cbc With Differential Ord2 Eos ABS# 0.0 K/ul 10/20/2017 Cbc With Differential Ord2 Baso ABS# 0.0 K/ul 10/20/2017 Iron Ord72 Iron 75 ug/dl 10/20/2017 Romie Reflex Profile [id number] ROMIE (BRYANNA) SCREEN NONE DETECTED 01/12/2017 Comp Metabolic Wko906 NA 129 mEq/L 01/08/2017 Comp Metabolic Qjz479 K 3.9 mEq/L 01/08/2017 Comp Metabolic Osc297 CL 94 mEq/L 01/08/2017 Comp Metabolic Qyv867 CO2 31.0 mEq/L 01/08/2017 Comp Metabolic Nwd780 ANION GAP 8 01/08/2017 Comp Metabolic Czi889 GLUCOSE 103 mg/dL 01/08/2017 Comp Metabolic Udk661 Creat 0.9 mg/dL 01/08/2017 Comp Metabolic Xqm475 eGFR 61 ml/min/1.73m2 01/08/2017 Comp Metabolic Nsq498 BUN 29 mg/dL 01/08/2017 Comp Metabolic Mvk209 B/C Ratio 30.9 Ratio 01/08/2017 Comp Metabolic Pxl303 CALCIUM 8.5 mg/dL 01/08/2017 Comp Metabolic Efo693 ALK PHOS 58 U/L 01/08/2017 Comp Metabolic Tvm442 AST(SGOT) 17 U/L 01/08/2017 Comp Metabolic Ubj847 ALT(SGPT) 10 U/L 01/08/2017 Comp Metabolic Yqr543 BILI T 0.4 mg/dL 01/08/2017 Comp Metabolic Vbi350 ALBUMIN 3.0 g/dL 01/08/2017 Comp Metabolic Puq971 TPRO 5.5 g/dL 01/08/2017 Comp Metabolic Ovs165 GLOB 2.5 g/dL 01/08/2017 Comp Metabolic Mne048 A/G Ratio 1.2 Ratio 01/08/2017 Comp Metabolic Fuq438 Osmo 265 mOsmo 01/08/2017 Cbc With Differential [...] 33.8 pg 01/08/2017 Cbc With Differential Ord2 [place]% 12.2 % 01/08/2017 Cbc With Differential Ord2 [...] 1.62 K/ul 01/08/2017 Cbc With Differential Ord2 [place] ABS# 0.9 K/ul 01/08/2017 Cbc With Differential [...] 33.1 pg 11/10/2016 Cbc With Differential Ord2 [place]% 9.1 % 11/10/2016 Cbc With Differential Ord2 [...] 0.78 K/ul 11/10/2016 Cbc With Differential Ord2 [place] ABS# 0.5 K/ul 11/10/2016 Cbc With Differential [...] 30.3 pg 10/07/2016 Cbc With Differential Ord2 [place]% 11.8 % 10/07/2016 Cbc With Differential Ord2 [...] 1.54 K/ul 10/07/2016 Cbc With Differential Ord2 [place] ABS# 1.0 K/ul 10/07/2016 Cbc With Differential Ord2 Eos ABS# 0.1 K/ul 10/07/2016 Cbc With Differential Ord2 Baso ABS# 0.0 K/ul 10/07/2016 Comp Metabolic Lol362 NA 129 mEq/L 08/26/2016 Comp Metabolic Rio276 K 3.9 mEq/L 08/26/2016 Comp Metabolic Oed120 CL 93 mEq/L 08/26/2016 Comp Metabolic Sfz205 CO2 30.0 mEq/L 08/26/2016 Comp Metabolic Mdj519 ANION GAP 10 08/26/2016 Comp Metabolic Cfx196 GLUCOSE 87 mg/dL 08/26/2016 Comp Metabolic Xoi216 Creat 0.6 mg/dL 08/26/2016 Comp Metabolic Ylh387 eGFR 96 ml/min/1.73m2 08/26/2016 Comp Metabolic Vxi396 BUN 17 mg/dL 08/26/2016 Comp Metabolic Uvu877 B/C Ratio 27.0 Ratio 08/26/2016 Comp Metabolic Dxa865 CALCIUM 7.6 mg/dL 08/26/2016 Comp Metabolic Fhb902 ALK PHOS 72 U/L 08/26/2016 Comp Metabolic Nwi888 AST(SGOT) 20 U/L 08/26/2016 Comp Metabolic Qvt545 ALT(SGPT) 12 U/L 08/26/2016 Comp Metabolic Agm700 BILI T 0.3 mg/dL 08/26/2016 Comp Metabolic Tre525 ALBUMIN 2.7 g/dL 08/26/2016 Comp Metabolic Wuw586 TPRO 5.3 g/dL 08/26/2016 Comp Metabolic Lzx613 GLOB 2.6 g/dL 08/26/2016 Comp Metabolic Yli594 A/G Ratio 1.1 Ratio 08/26/2016 Comp Metabolic Iks111 Osmo 260 mOsmo 08/26/2016 Cbc With Differential [...] 28.3 pg 08/26/2016 Cbc With Differential Ord2 [place]% 9.6 % 08/26/2016 Cbc With Differential Ord2 [...] 1.83 K/ul 08/26/2016 Cbc With Differential Ord2 [place] ABS# 1.0 K/ul 08/26/2016 Cbc With Differential Ord2 Eos ABS# 0.1 K/ul 08/26/2016 Cbc With Differential Ord2 Baso ABS# 0.0 K/ul 08/26/2016 Magnesium Ord90 Mag 1.9 mg/dL 08/26/2016 Vitamin D 25 Oh Jja9359 VITAMIN D, 25 HYDROXY 34.59 ng/mL Tibc Ord40 Iron 13 ug/dl 08/26/2016 Tibc Ord40 UIBC 283 ug/dL 08/26/2016 Tibc Ord40 TIBC 296 ug/dL 08/26/2016 Tibc Ord40 Fe-%Sat 4.4 % 08/26/2016 Ferritin Ord22 FERRITIN 28.8 ng/mL 08/26/2016 Sed Rate Ord21 ESR 20 mm/hr 11/19/2015 Comp Metabolic Hdl886 NA 131 mEq/L 08/22/2015 Comp Metabolic Odq613 K 4.2 mEq/L 08/22/2015 Comp Metabolic Ctc290 CL 98 mEq/L 08/22/2015 Comp Metabolic Tzs097 CO2 27.0 mEq/L 08/22/2015 Comp Metabolic Xhh341 ANION GAP 10 08/22/2015 Comp Metabolic Ijf844 GLUCOSE 80 mg/dL 08/22/2015 Comp Metabolic Nyg991 Creat 0.5 mg/dL 08/22/2015 Comp Metabolic Msi469 eGFR 120 ml/min/1.73m2 08/22/2015 Comp Metabolic Uof175 BUN 13 mg/dL 08/22/2015 Comp Metabolic Lmm936 B/C Ratio 25.0 Ratio 08/22/2015 Comp Metabolic Hku214 CALCIUM 8.2 mg/dL 08/22/2015 Comp Metabolic Dbg037 ALK PHOS 49 U/L 08/22/2015 Comp Metabolic Gwu475 AST(SGOT) 18 U/L 08/22/2015 Comp Metabolic Bqv145 ALT(SGPT) 11 U/L 08/22/2015 Comp Metabolic Pco449 BILI T 0.5 mg/dL 08/22/2015 Comp Metabolic Xom758 ALBUMIN 3.5 g/dL 08/22/2015 Comp Metabolic Lox665 TPRO 6.2 g/dL 08/22/2015 Comp Metabolic Hwg986 GLOB 2.7 g/dL 08/22/2015 Comp Metabolic Mgm940 A/G Ratio 1.3 Ratio 08/22/2015 Comp Metabolic Rxa446 Osmo 262 mOsmo 08/22/2015 Cbc With Differential [...] 32.4 pg 08/22/2015 Cbc With Differential Ord2 [place]% 10.3 % 08/22/2015 Cbc With Differential Ord2 [...] 1.39 K/ul 08/22/2015 Cbc With Differential Ord2 [place] ABS# 0.7 K/ul 08/22/2015 Cbc With Differential Ord2 Eos ABS# 0.1 K/ul 08/22/2015 Cbc With Differential Ord2 Baso ABS# 0.0 K/ul 08/22/2015 Tsh Ord6 hTSH II 2.19 uIU/mL 08/22/2015 Vitamin D 25 Oh Ftk6105 VITAMIN D, 25 HYDROXY 55.10 ng/mL Lipid [...] 1.5 Ratio 03/16/2015 Vitamin D 25 Oh Ahm2245 VITAMIN D, 25 HYDROXY 28.94 ng/mL Cbc [...] 28.1 pg 03/16/2015 Cbc With Differential Ord2 [place]% 11.2 % 03/16/2015 Cbc With Differential Ord2 [...] 2.37 K/ul 03/16/2015 Cbc With Differential Ord2 [place] ABS# 0.8 K/ul 03/16/2015 Cbc With Differential Ord2 Eos ABS# 0.1 K/ul 03/16/2015 Cbc With Differential Ord2 Baso ABS# 0.0 K/ul 03/16/2015 Cbc With Differential Ord2 New Analyzer Notice Please note new ref ranges starting 03-14-2015 due to implemntation of new five part differential hematolgy analyzer. 03/16/2015 Comp Metabolic Bkf501 NA 131 mEq/L 03/16/2015 Comp Metabolic Ccb701 K 4.1 mEq/L 03/16/2015 Comp Metabolic Wsh415 CL 94 mEq/L 03/16/2015 Comp Metabolic Lnz541 CO2 28.0 mEq/L 03/16/2015 Comp Metabolic Wum070 ANION GAP 13 03/16/2015 Comp Metabolic Rew923 GLUCOSE 96 mg/dL 03/16/2015 Comp Metabolic Wvb966 Creat 0.7 mg/dL 03/16/2015 Comp Metabolic Pue135 eGFR 80 ml/min/1.73m2 03/16/2015 Comp Metabolic Txh314 BUN 16 mg/dL 03/16/2015 Comp Metabolic Cti798 B/C Ratio 21.6 Ratio 03/16/2015 Comp Metabolic Vuc224 CALCIUM 8.9 mg/dL 03/16/2015 Comp Metabolic Yhf187 ALK PHOS 44 U/L 03/16/2015 Comp Metabolic Fqc342 AST(SGOT) 22 U/L 03/16/2015 Comp Metabolic Lgv211 ALT(SGPT) 14 U/L 03/16/2015 Comp Metabolic Riq345 BILI T 0.5 mg/dL 03/16/2015 Comp Metabolic Vda883 ALBUMIN 3.4 g/dL 03/16/2015 Comp Metabolic Ali948 TPRO 6.0 g/dL 03/16/2015 Comp Metabolic Qwe857 GLOB 2.6 g/dL 03/16/2015 Comp Metabolic Mvu122 A/G Ratio 1.3 Ratio 03/16/2015 Comp Metabolic Gry552 Osmo 264 mOsmo 03/16/2015 Comp Metabolic Amm291 NA 129 mEq/L 11/09/2014 Comp Metabolic Uqg463 K 4.2 mEq/L 11/09/2014 Comp Metabolic Bhm313 CL 96 mEq/L 11/09/2014 Comp Metabolic Knm194 CO2 27.0 mEq/L 11/09/2014 Comp Metabolic Bqs372 ANION GAP 10 11/09/2014 Comp Metabolic Rlg883 GLUCOSE 144 mg/dL 11/09/2014 Comp Metabolic Adx774 Creat 0.8 mg/dL 11/09/2014 Comp Metabolic Zph511 eGFR 73 ml/min/1.73m2 11/09/2014 Comp Metabolic Ibf163 BUN 22 mg/dL 11/09/2014 Comp Metabolic Tmy986 B/C Ratio 27.5 Ratio 11/09/2014 Comp Metabolic Snl582 CALCIUM 8.6 mg/dL 11/09/2014 Comp Metabolic Phf185 ALK PHOS 55 U/L 11/09/2014 Comp Metabolic Exa705 AST(SGOT) 27 U/L 11/09/2014 Comp Metabolic Iry574 ALT(SGPT) 18 U/L 11/09/2014 Comp Metabolic Kqo019 BILI T 0.5 mg/dL 11/09/2014 Comp Metabolic Zra965 ALBUMIN 3.0 g/dL 11/09/2014 Comp Metabolic Fxj956 TPRO 5.4 g/dL 11/09/2014 Comp Metabolic Cnm873 GLOB 2.4 g/dL 11/09/2014 Comp Metabolic Owb122 A/G Ratio 1.3 Ratio 11/09/2014 Comp Metabolic Cli046 Osmo 265 mOsmo 11/09/2014 Magnesium Ord90 Mag [...] nourished 11/27/2017 None Full Exam - General 1995 Eyes pupils and irises Overall: pupils equal, [...] accomodation 09/29/2017 None Full Exam - General 1995 Respiratory auscultation Overall: breath sounds clear bilaterally [...] dentition 03/12/2017 None Full Exam - General 1995 [...] dentition 11/17/2016 None Full Exam - General 1995 Ears/Nose/Throat oral cavity/pharynx/larynx Overall: oral mucosa clear 11/17/2016 None Full Exam - General 1994 Ears/Nose/Throat oral cavity/pharynx/larynx Overall: oropharyngeal mucosa clear 11/17/2016 None Full Exam - General 1995 Ears/Nose/Throat oral cavity/pharynx/larynx Overall: hypopharynx benign 11/17/2016 [...] Procedure Codes Date THER/PROPH/DIAG INJ SC/IM CPT-4: 90173 04/21/2018 PROMETHAZINE HCL INJECTION CPT-4: J2550 04/21/2018 DRAIN/INJECT JOINT/BURSA CPT-4: 42250 08/21/2017 DRAIN/INJECT JOINT/BURSA CPT-4: 70936 08/12/2017 TRIAMCINOLONE ACET INJ NOS CPT-4: J3301 08/12/2017 DRAIN/INJECT JOINT/BURSA CPT-4: 49328 08/05/2017 TRIAMCINOLONE ACET INJ NOS CPT-4: J3301 08/05/2017 DRAIN/INJECT JOINT/BURSA CPT-4: 32919 07/23/2017 DRAIN/INJECT JOINT/BURSA CPT-4: 57848 07/09/2017 TRIAMCINOLONE ACET INJ NOS CPT-4: J3301 07/09/2017 PRESCRIP TRANSMIT VIA ERX SY CPT-4: G8553 07/09/2017 DRAIN/INJECT JOINT/BURSA CPT-4: 58376 07/01/2017 TRIAMCINOLONE ACET INJ NOS CPT-4: J3301 07/01/2017 PRESCRIP TRANSMIT VIA ERX SY CPT-4: G8553 07/01/2017 DRAIN/INJECT JOINT/BURSA CPT-4: 54786 06/17/2017 DRAIN/INJECT JOINT/BURSA CPT-4: 40435 04/02/2017 TRIAMCINOLONE ACET INJ NOS CPT-4: J3301 04/02/2017 DRAIN/INJECT JOINT/BURSA CPT-4: 00675 02/06/2017 ADMIN INFLUENZA VIRUS VAC CPT-4: G0008 12/08/2016 FLU VACC PRSV FREE INC ANTIG CPT-4: 70470 12/08/2016 PRESCRIP TRANSMIT VIA ERX SY CPT-4: G8553 12/08/2016 PRESCRIP TRANSMIT VIA ERX SY CPT-4: G8553 11/17/2016 TRIAMCINOLONE ACET INJ NOS CPT-4: J3301 10/02/2016 TRIAMCINOLONE ACET INJ NOS CPT-4: J3301 09/12/2016 DRAIN/INJECT JOINT/BURSA CPT-4: 49509 09/08/2016 TRIAMCINOLONE ACET INJ NOS CPT-4: J3301 09/08/2016 PRESCRIP TRANSMIT VIA ERX SY CPT-4: G8553 08/26/2016 PRESCRIP TRANSMIT VIA ERX SY CPT-4: G8553 08/18/2016 ADMIN INFLUENZA VIRUS VAC CPT-4: G0008 11/19/2015 FLU VACC PRSV FREE INC ANTIG Formatting Model/CDA Sections, Assigned to/Luanne Elaine CPT-4: 44793Yoooxit 11/19/2015 PRESCRIP TRANSMIT VIA ERX SY CPT-4: G8553 09/04/2015 PRESCRIP TRANSMIT VIA ERX SY CPT-4: G8553 2015 PRESCRIP TRANSMIT VIA ERX SY CPT-4: G8553 07/18/2015 PRESCRIP TRANSMIT VIA ERX SY CPT-4: G8553 07/02/2015 REMOVE IMPACTED EAR WAX UNI CPT-4: 48455 04/09/2015 PRESCRIP TRANSMIT VIA ERX SY CPT-4: G8553 02/08/2015 ADMIN INFLUENZA VIRUS VAC CPT-4: G0008 01/10/2015 FLU VACC PRSV FREE INC ANTIG Formatting Model/CDA Sections, Assigned to/Luanne Elaine CPT-4: 54318Namyyxx 01/10/2015 ADMIN PNEUMOCOCCAL VACCINE Formatting Model/CDA Sections, Assigned to SNOMED CT: 29157020 CPT-4: E6336Mpmsaqv 12/11/2014 PNEUMOCOCCAL VACC [address]: 34599715 CPT-4: 51247 12/11/2014 Vital Signs Date Vital 05/10/2018 Blood [...] Code : 8480-6 BMI: 23.5 Code : 77307-2 Heart Rate 1 : 58 bpm Height: 5'8" SpO2: 96% Weight: 152 lbs 11/30/2017 Blood Pressure 1: 122/70 Code : 8480-6 Heart Rate 1: 105 bpm Height: 5'8" SpO2: 98% Weight: 11/27/2017 Blood Pressure 1: 148/76 Code : 8480-6 Heart Rate 1: 72 bpm Height: 5'8" SpO2: 99% Weight: 11/10/2017 Blood Pressure 1: 130/76 Code : 8480-6 BMI: 27.3 Code : 93667-1 Heart Rate 1 : 98 bpm Height: [...] Code : 8480-6 BMI: 24.7 Code : 49320-6 Heart Rate 1 : 100 bpm Height: 5'8" SpO2: 95% Weight: 160 lbs 08/31/2017 Blood Pressure 1: 128/78 Code : 8480-6 BMI: 23.6 Code : 50491-7 Heart Rate 1 : 102 bpm Height: 5'8" SpO2: 96% Weight: 153 lbs 08/21/2017 Blood Pressure 1: 138/78 Code : 8480-6 Heart Rate 1: 97 bpm SpO2: 95% Weight: 156 lbs 2 oz 08/12/2017 Blood Pressure 1: 138/74 Code : 8480-6 BMI: 25.0 Code : 11662-5 Heart Rate 1 : 94 bpm Height: 5'8" SpO2: 98% Weight: 162 lbs 08/05/2017 Blood Pressure 1: 126/78 Code : 8480-6 BMI: 25.8 Code : 71039-8 Heart Rate 1 : 74 bpm Height: 5'8" SpO2: 96% Weight: 167 lbs 07/23/2017 Blood Pressure 1: 106/64 Code : 8480-6 BMI: 25.3 Code : 36495-8 Heart Rate 1 : 81 bpm Height: 5'8" SpO2: 99% Weight: 163 lbs 14 oz 07/09/2017 Blood Pressure 1: 130/68 Code : 8480-6 Heart Rate 1: 82 bpm Height: 5'8" SpO2: 98% Weight: 07/01/2017 Blood Pressure 1: 124/76 Code : 8480-6 BMI: 26.5 Code : 77051-6 Heart Rate 1 : 99 bpm Height: 5'8" SpO2: 98% Weight: 172 lbs 06/24/2017 Blood Pressure 1: 118/70 Code : 8480-6 Heart Rate 1: 103 bpm Height: 5'8" SpO2: 98% Weight: 06/17/2017 Blood Pressure 1: 110/64 Code : 8480-6 BMI: 25.0 Code : 16312-2 Heart Rate 1 : 73 bpm Height: 5'8" Weight: 162 lbs 06/01/2017 Blood Pressure 1: 158/84 Code : 8480-6 BMI: 24.4 Code : 25226-4 Heart Rate 1 : 94 bpm Height: 5'8" SpO2: 95% Weight: 158 lbs 04/02/2017 Blood Pressure 1: 164/80 Code : 8480-6 BMI: 23.1 Code : 54465-4 Heart Rate 1 : 76 bpm Height: 5'8" SpO2: 94% Weight: 150 lbs 03/12/2017 Blood Pressure 1: 130/74 Code : 8480-6 BMI: 23.0 Code : 31456-5 Heart Rate 1 : 92 bpm Height: 5'8" SpO2: 94% Weight: 149 lbs 02/06/2017 Height: Weight: 01/08/2017 Blood Pressure 1: 136/76 Code : 8480-6 BMI: 21.4 Code : 85639-5 Heart Rate 1 : 85 bpm Height: 5'8" SpO2: 98% Weight: 138 lbs 8 oz 12/08/2016 Blood Pressure 1: 132/66 Code : 8480-6 BMI: 22.2 Code : 14372-2 Heart Rate 1 : 106 bpm Height: 5'8" SpO2: 97% Weight: 144 lbs 11/17/2016 Blood Pressure 1: 146/80 Code : 8480-6 BMI: 22.4 Code : 25880-5 Heart Rate 1 : 100 bpm Height: 5'8" SpO2: 98% Weight: 145 lbs 11/10/2016 Blood Pressure 1: 122/62 Code : 8480-6 BMI: 22.2 Code : 63490-2 Height: 5'8" Weight: 144 lbs 11/05/2016 Blood Pressure 1: 146/80 Code : 8480-6 BMI: 22.2 Code : 91900-0 Heart Rate 1 : 77 bpm Height: 5'8" SpO2: 99% Weight: 144 lbs 10/07/2016 Blood Pressure 1: 132/68 Code : 8480-6 BMI: 22.8 Code : 07946-8 Heart Rate 1 : 90 bpm Height: 5'8" SpO2: 97% Weight: 148 lbs 10/02/2016 Blood Pressure 1: 166/86 Code : 8480-6 BMI: 22.8 Code : 89793-2 Heart Rate 1 : 96 bpm Height: 5'8" SpO2: 96% Weight: 148 lbs 09/12/2016 Blood Pressure 1: 130/86 Code : 8480-6 Height: Weight: 09/08/2016 Blood Pressure 1: 132/74 Code : 8480-6 BMI: 22.4 Code : 94705-6 Heart Rate 1 : 93 bpm Height: 5'8" SpO2: 99% Weight: 145 lbs 08/26/2016 Blood Pressure 1: 132/78 Code : 8480-6 BMI: 23.9 Code : 87324-5 Heart Rate 1 : 80 bpm Height: 5'8" SpO2: 94% Weight: 155 lbs 08/18/2016 Blood Pressure 1: 130/70 Code : 8480-6 BMI: 23.6 Code : 04512-6 Heart Rate 1 : 100 bpm Height: 5'8" SpO2: 94% Weight: 153 lbs 07/30/2016 Blood Pressure 1: 144/84 Code : 8480-6 BMI: 22.4 Code : 11384-2 Heart Rate 1 : 86 bpm Height: 5'8" SpO2: 97% Weight: 145 lbs 07/14/2016 Blood Pressure 1: 122/74 Code : 8480-6 BMI: 22.5 Code : 78310-8 Heart Rate 1 : 87 bpm Height: 5'8" SpO2: 97% Weight: 146 lbs 07/04/2016 Blood Pressure 1: 128/78 Code : 8480-6 BMI: 22.5 Code : 80724-9 Heart Rate 1 : 98 bpm Height: 5'8" Weight: 146 lbs 06/26/2016 Blood Pressure 1: 122/68 Code : 8480-6 BMI: 22.5 Code : 54361-1 Heart Rate 1 : 102 bpm Height: 5'8" SpO2: 98% Weight: 146 lbs 05/28/2016 Blood Pressure 1: 122/68 Code : 8480-6 BMI: 22.4 Code : 03563-4 Heart Rate 1 : 89 bpm Height: 5'8" SpO2: 97% Weight: 145 lbs 03/18/2016 Blood Pressure 1: 132/66 Code : 8480-6 BMI: 22.8 Code : 28630-5 Heart Rate 1 : 96 bpm Height: 5'8" SpO2: 98% Weight: 148 lbs 01/29/2016 Blood Pressure 1: 122/66 Code : 8480-6 BMI: 22.2 Code : 44967-4 Heart Rate 1 : 90 bpm Height: 5'8" SpO2: 99% Weight: 144 lbs 01/01/2016 Blood Pressure 1: 148/82 Code : 8480-6 BMI: 22.5 Code : 34111-1 Heart Rate 1 : 82 bpm Height: 5'8" Weight: 146 lbs 11/19/2015 Blood Pressure 1: 140/74 Code : 8480-6 BMI: 23.7 Code : 41781-3 Heart Rate 1 : 79 bpm Height: 5'8" SpO2: 96% Weight: 153 lbs 8 oz 11/01/2015 Blood Pressure 1: 118/72 Code : 8480-6 Heart Rate 1: 90 bpm Height: 5'8" SpO2: 95% 09/04/2015 Blood Pressure 1: 136/72 Code : 8480-6 BMI: 23.1 Code : 22535-0 Heart Rate 1 : 97 bpm Height: 5'8" SpO2: 98% Weight: 149 lbs 8 oz 2015 Blood Pressure 1: 144/76 Code : 8480-6 BMI: 22.8 Code : 14451-0 Heart Rate 1 : 75 bpm Height: 5'8" SpO2: 97% Weight: 148 lbs 07/18/2015 Blood Pressure 1: 132/60 Code : 8480-6 BMI: 23.1 Code : 87962-6 Heart Rate 1 : 78 bpm Height: 5'8" Weight: 150 lbs 07/02/2015 Blood Pressure 1: 156/86 Code : 8480-6 BMI: 23.0 Code : 95085-9 Heart Rate 1 : 75 bpm Height: 5'8" SpO2: 99% Weight: 149 lbs 05/31/2015 Blood Pressure 1: 136/72 Code : 8480-6 BMI: 22.7 Code : 67637-8 Heart Rate 1 : 85 bpm Height: 5'8" SpO2: 97% Weight: 147 lbs 04/09/2015 Blood Pressure 1: 118/60 Code : 8480-6 BMI: 22.7 Code : 43532-8 Heart Rate 1 : 72 bpm Height: 5'8" SpO2: 95% Weight: 147 lbs 02/08/2015 Blood Pressure 1: 138/76 Code : 8480-6 BMI: 23.1 Code : 37609-1 Heart Rate 1 : 80 bpm Height: 5'8" SpO2: 98% Weight: 150 lbs 12/11/2014 Blood Pressure 1: 120/74 Code : 8480-6 BMI: 22.1 Code : 93512-4 Heart Rate 1 : 92 bpm Height: 5'8" SpO2: 96% Weight: 143 lbs 11/09/2014 Blood Pressure 1: 100/64 Code : 8480-6 BMI: 21.6 Code : 61560-7 Heart Rate 1 : 88 bpm Height: 5'8" Weight: 140 lbs 10/23/2014 Blood Pressure 1: 138/82 Code : 8480-6 BMI: 23.6 Code : 52162-0 Heart Rate 1 : 86 bpm Height: 5'8" Weight: 153 lbs 10/16/2014 Blood Pressure 1: 128/60 Code : 8480-6 BMI: 23.3 Code : 14291-5 Heart Rate 1 : 91 bpm Height: 5'8" SpO2: 99% Weight: 151 lbs 10/09/2014 Blood Pressure 1: 120/60 Code : 8480-6 BMI: 23.0 Code : 34145-6 Heart Rate 1 : 96 bpm Height: 5'8" SpO2: 97% Weight: 149 lbs 09/14/2014 Blood Pressure 1: 132/72 Code : 8480-6 BMI: 22.1 Code : 96519-3 Heart Rate 1 : 84 bpm Height: 5'8" SpO2: 97% Weight: 143 lbs 08/11/2014 Blood Pressure 1: 134/74 Code : 8480-6 BMI: 24.1 Code : 92082-9 Heart Rate 1 : 88 bpm Height: 5'8" Weight: 156 lbs 07/12/2014 Blood Pressure 1: 122/62 Code : 8480-6 BMI: 22.7 Code : 57776-1 Heart Rate 1 : 76 bpm Height: [...] Dr. Blancas in [place] and Neurosurgeon in [place] in the past neck pain Significant Medical Conditions spinal stenosis 07/12/2014 has osteoarthritis Advance Directives No Advance Directive data Encounters Encounter Performer Location Codes Date EST. PATIENT, LEVEL III Diagnosis: First degree hemorrhoids[ICD10: K64.0] Diagnosis: Other specified diseases of anus and rectum[ICD10: K62.89] Araceli Silva MD , [facility] CPT-4: 70244 05/10/2018 ([id number]) 78353 EST. 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 PATIENT, LEVEL III Diagnosis: Other specified intestinal infections[ICD10: A08.8] Diagnosis: Diarrhea, unspecified[ICD10: R19.7] [facility] CPT-4: 41812 04/21/2018 ([id number]) 08114 EST. PATIENT, LEVEL IV Diagnosis: Essential (primary) hypertension[ICD10: I10] Diagnosis: Hypo-osmolality and hyponatremia[ICD10: E87.1] Diagnosis: Chronic pain syndrome[ICD10: G89.4] Araceli Silva MD, [facility] CPT-4: 97614 03/03/2018 ([id number]) 30335 EST. PATIENT, LEVEL III Diagnosis: Cough[ICD10: R05] Diagnosis: Acute bronchitis, unspecified[ICD10: J20.9] Diagnosis: Chronic obstructive pulmonary disease, unspecified[ICD10: J44.9] [facility] CPT-4: 63408 02/12/2018 ([id number]) 48997 EST. PATIENT, LEVEL IV Diagnosis: Chronic pain syndrome[ICD10: G89.4] Diagnosis: Cough[ICD10: R05] Diagnosis: Diarrhea, unspecified[ICD10: R19.7] Diagnosis: Generalized edema[ICD10: R60.1] Ila Silva MD, [facility] CPT-4: 32924 02/09/2018 ([id number]) 92180 EST. PATIENT, LEVEL III Diagnosis: Generalized edema[ICD10: R60.1] Diagnosis: Lymphedema, not elsewhere classified[ICD10: I89.0] Araceli Silva MD [facility] CPT-4: 06214 01/14/2018 ([id number]) 29309 EST. PATIENT, LEVEL IV Diagnosis: Essential (primary) hypertension[ICD10: I10] Diagnosis: Generalized edema[ICD10: R60.1] Diagnosis: Chronic pain syndrome[ICD10: G89.4] Araceli Silva MD, [facility] CPT-4: 21417 12/24/2017 ([id number]) 23770 EST. PATIENT, LEVEL III Diagnosis: Lymphedema, not elsewhere classified[ICD10: I89.0] Araceli Silva MD [facility] CPT-4: 37878 11/30/2017 ([id number]) 38793 EST. PATIENT, LEVEL III Diagnosis: Generalized edema[ICD10: R60.1] Ila Silva MD [facility] CPT-4: 47094 11/27/2017 ([id number]) 01230 EST. PATIENT, LEVEL IV Diagnosis: Localized edema[ICD10: [...] in left shoulder[ICD10: M25.512] Araceli Silva MD, [facility] CPT-4: 09530 11/10/2017 ([id number]) 24622 EST. PATIENT, LEVEL IV Diagnosis: Localized edema[ICD10: [...] in left shoulder[ICD10: M25.512] Araceli Silva MD, [facility] CPT-4: 39448 10/29/2017 ([id number]) 45113 EST. PATIENT, LEVEL IV Diagnosis: Essential (primary) [...] Diagnosis: Localized edema[ICD10: R60.0] Araceli Silva MD, [facility] CPT- 4: 51610 10/20/2017 ([id number]) 25649 EST. 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 PATIENT, LEVEL IV Diagnosis: Primary osteoarthritis, left shoulder[ICD10: M19.012] Diagnosis: Pain in left shoulder[ICD10: M25.512] Diagnosis: Lymphedema, not elsewhere classified[ICD10: I89.0] Diagnosis: Localized edema[ICD10: R60.0] Diagnosis: Chronic atrial fibrillation[ICD10: I48.2] Araceli Silva MD, [facility] CPT-4: 64439 09/15/2017 ([id number]) 33129 EST. PATIENT, LEVEL III Diagnosis: Primary osteoarthritis, left shoulder[ICD10: M19.012] Diagnosis: Pain in left shoulder[ICD10: M25.512] Diagnosis: Hemarthrosis, left shoulder[ICD10: M25.012] Araceli Silva MD, [facility] CPT-4: 18827 08/31/2017 ([id number]) [id number] EST. 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 PATIENT, LEVEL III Diagnosis: Localized edema[ICD10: R60.0] Araceli Silva MD, [facility] CPT- 4: 37563 07/23/2017 ([id number]) 70054 EST. PATIENT, LEVEL III Diagnosis: Rheumatoid arthritis without rheumatoid factor, left shoulder[ICD10: M06.012] Diagnosis: Hemarthrosis, left shoulder[ICD10: M25.012] Araceli Silva MD, [facility] CPT-4: 23357 07/09/2017 ([id number]) 20138 EST. PATIENT, LEVEL III Diagnosis: Chronic pain syndrome[ICD10: G89.4] Diagnosis: Rheumatoid arthritis without rheumatoid factor, left shoulder[ICD10: M06.012] Diagnosis: Hemarthrosis, left shoulder[ICD10: M25.012] Diagnosis: Lymphedema, not elsewhere classified[ICD10: I89.0] Araceli Silva MD, [facility] CPT-4: 71020 07/01/2017 ([id number]) 65481 EST. PATIENT, LEVEL III Diagnosis: Chronic pain syndrome[ICD10: G89.4] Araceli Silva MD, [facility] CPT-4: 00236 06/24/2017 ([id number]) 44983 EST. PATIENT, LEVEL IV Diagnosis: Rheumatoid arthritis without rheumatoid factor, right shoulder[ICD10 : M06.011] Diagnosis: Rheumatoid arthritis without rheumatoid factor, left shoulder[ICD10: M06.012] Diagnosis: Pain in right shoulder[ICD10: M25.511] Diagnosis: Pain in left shoulder[ICD10: M25.512] Diagnosis: Chronic atrial fibrillation[ICD10: I48.2] Araceli Silva MD, [facility] CPT-4: 06923 06/17/2017 [id number] EST. PATIENT, LEVEL III Diagnosis: Pain in left shoulder[ICD10: M25.512] Diagnosis: Hemarthrosis, right shoulder[ICD10: M25.011] Diagnosis: Hemarthrosis, left shoulder[ICD10: M25.012] Maricel Silva MD, [facility] CPT-4: 36711 06/01/2017 ([id number]) 02402 EST. PATIENT, LEVEL II Diagnosis: Pain in right shoulder[ICD10: M25.511] Diagnosis: Hemarthrosis, right shoulder[ICD10: M25.011] Araceli Silva MD, [facility] CPT-4: 29334 04/02/2017 ([id number]) 18752 EST. PATIENT, LEVEL IV Diagnosis: Chronic pain syndrome[ICD10: G89.4] Diagnosis: Rheumatoid arthritis without rheumatoid factor, right shoulder[ICD10 : M06.011] Diagnosis: Rheumatoid arthritis without rheumatoid factor, left shoulder[ICD10: M06.012] Araceli Silva MD, [facility] CPT-4: 77832 2017 ([id number]) 76433 EST. PATIENT, LEVEL IV Diagnosis: Primary osteoarthritis, right shoulder[ICD10: M19.011] Diagnosis: Chronic pain syndrome[ICD10: G89.4] Diagnosis: Essential (primary) hypertension[ICD10: I10] Diagnosis: Hypomagnesemia[ICD10: E83.42] Araceli Silva MD, [facility] CPT- 4: 50017 01/08/2017 ([id number]) 91974 EST. PATIENT, LEVEL IV Diagnosis: Encounter for immunization[ICD10: Z23] Diagnosis: Chronic pain syndrome[ICD10: G89.4] Diagnosis: Essential (primary) hypertension[ICD10: I10] Araceli Silva MD, [facility] CPT-4: 13971 12/08/2016 ([id number]) 88403 EST. PATIENT, LEVEL III Diagnosis: Urge incontinence[ICD10: N39.41] Diagnosis: Chronic pain syndrome[ICD10: G89.4] Diagnosis: Lymphedema, not elsewhere classified[ICD10: I89.0] Araceli Silva MD, [facility] CPT-4: 23580 11/17/2016 69054 EST. 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 PATIENT, LEVEL IV Diagnosis: Essential (primary) hypertension[ICD10: I10] Diagnosis: Other chronic pain[ICD10: G89.29] Diagnosis: Localized edema[ICD10: R60.0] Diagnosis: Urge incontinence[ICD10: N39.41] Araceli Silva MD, [facility] CPT-4: 61577 11/05/2016 ([id number]) 33335 EST. 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 PATIENT, LEVEL III Diagnosis: Hemarthrosis, right shoulder[ICD10: M25.011] Diagnosis: Pain in right shoulder[ICD10: M25.511] Ila Silva MD, [facility] CPT-4: 99104 10/02/2016 91108 EST. PATIENT, LEVEL II Diagnosis: Low back pain[ICD10: M54.5] Diagnosis: Sacroiliitis, not elsewhere classified[ICD10: M46.1] Ila Silva MD, [facility] CPT-4: 87842 09/12/2016 ([id number]) 32025 EST. PATIENT, LEVEL III Diagnosis: Hemarthrosis, right shoulder[ICD10: M25.011] Diagnosis: Other chronic pain[ICD10: G89.29] Araceli Silva MD, [facility] CPT-4: 12391 09/08/2016 ([id number]) 84433 EST. PATIENT, LEVEL IV Diagnosis: Other iron deficiency anemias[ICD10: D50.8] Diagnosis: Vitamin D deficiency, unspecified[ICD10: E55.9] Diagnosis: Hypomagnesemia[ICD10: E83.42] Araceli Silva MD, [facility] CPT- 4: 56356 08/26/2016 ([id number]) 49341 EST. PATIENT, LEVEL III Diagnosis: Localized edema[ICD10: R60.0] Araceli Silva MD, [facility] CPT- 4: 47313 08/18/2016 ([id number]) 61527 EST. 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 PATIENT, LEVEL IV Diagnosis: Pain in left shoulder[ICD10: M25.512] Diagnosis: Nocturia[ICD10: R35.1] Maricel Silva MD, [facility] CPT-4: 96465 07/14/2016 92457 EST. PATIENT, LEVEL III Diagnosis: Pain in left shoulder[ICD10: M25.512] Maricel Silva MD, [facility] CPT-4: 57251 07/04/2016 ([id number]) 32083 EST. 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 PATIENT, LEVEL II Diagnosis: Insect bite (nonvenomous) of right upper arm, initial encounter[ICD10 : S40.861A] Ila Silva MD, [facility] CPT-4: 82114 11/01/2015 ([id number]) 72759 EST. 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 PATIENT, LEVEL III Diagnosis: Contusion of left upper arm, subsequent encounter[ICD10: S40.022D] Araceli Silva MD, [facility] CPT-4: 00105 2015 27865 EST. PATIENT, LEVEL III Diagnosis: Cellulitis of left upper limb[ICD10: L03.114] Maricel Silva MD, [facility] CPT-4: 02543 07/18/2015 ([id number]) 42910 EST. 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 PATIENT, LEVEL IV Diagnosis: Essential (primary) hypertension[ICD10: I10] Diagnosis: Vitamin D deficiency, unspecified[ICD10: E55.9] Diagnosis: Mixed hyperlipidemia[ICD10: E78.2] Diagnosis: Age-related osteoporosis with current pathological fracture, unspecified site, sequela[ICD10: M80.00XS] Araceli Silva MD, [facility] CPT- 4: 45397 02/08/2015 ([id number]) 71753 EST. PATIENT, LEVEL IV Diagnosis: Essential (primary) hypertension[ICD10: I10] Diagnosis: Localized edema[ICD10: R60.0] Diagnosis: Primary osteoarthritis, unspecified site[ICD10: M19.91] Araceli Silva MD, [facility] CPT-4: 70275 12/11/2014 ([id number]) 11267 EST. PATIENT, LEVEL III Diagnosis: EDEMA[ICD9: 782.3] Diagnosis: ESSENTIAL HYPERTENSION[ICD9: 401.9] Araceli Silva MD, [facility] CPT-4: 20300 11/09/2014 ([id number]) 64127 EST. PATIENT, LEVEL III Diagnosis: Leg pain[ICD9: 729.5] Diagnosis: Ulcer of toe[ICD9: 707.15] Araceli Silva MD, [facility] CPT- 4: 59221 10/23/2014 ([id number]) 40024 EST. PATIENT, LEVEL III Diagnosis: Ulcer of toe[ICD9: 707.15] Araceli Silva MD [facility] CPT- 4: 34117 10/16/2014 28643 EST. PATIENT, LEVEL II Diagnosis: Ulcer of toe[ICD9: 707.15] Ila Silva MD, [facility] CPT-4: 48778 10/09/2014 ([id number]) 29702 EST. PATIENT, LEVEL III Diagnosis: EDEMA[ICD9: 782.3] Araceli Silva MD, [facility] CPT-4: 93399 09/14/2014 ([id number]) 55003 EST. PATIENT, LEVEL IV Diagnosis: EDEMA[ICD9: 782.3] Diagnosis: ESSENTIAL HYPERTENSION[ICD9: 401.9] Araceli Silva MD, [facility] CPT-4: 55430 08/11/2014 ([id number]) OFFICE VISIT, NEW - LEVEL 4 Diagnosis: HYPERLIPIDEMIA[ICD9: 272.4] Diagnosis: VITAMIN D DEFICIENCY[ICD9: 268.9] Diagnosis: Osteoporosis[ICD9: 733.00] Diagnosis: Esophageal reflux[ICD9: 530.81] Diagnosis: Chronic pain[ICD9: 338.29] Araecli Silva MD, [facility] CPT- 4: 62128 07/12/2014 Plan of Care Planned Activity Notes Codes Status Date Visit Plan: Melena - hemorrhoidal tissue- discussed with pt and her daughter - rx for proctofoam and suppositories given to patient - 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 Avoid straining when having bowel movements. Monitor symptoms closely. 05/10/2018 Patient Education: Patient Medication Summary Completed [...] of miralax. 05/04/2018 Appointment: Araceli Silva WPtel: [address] [facility] (15 min) Moderate 05/04/2018 Patient Education: Patient Medication Summary Completed 05/04/2018 Appointment: Araceli Silva WPtel: [facility] (15 min) Moderate 05/03/2018 Visit [...] stomach pain. 04/21/2018 Appointment: Maricel Gee WPtel: [facility] (30 min) Complex 04/21/2018 Patient Education: Patient [...] with fentanyl 03/03/2018 Appointment: Araceli Silva WPtel: [facility] (15 min) Moderate 03/03/2018 Patient Education: [...] - will send rx to [facility] 02/12/2018 Appointment: Ila Kennedy WPtel: [phone] (30 min) Complex 02/12/2018 Patient Education: Patient Medication Summary Completed 02/12/2018 Visit Plan: Chronic Pain Syndrome - pt has chronic pain - has been maintained on current medications, has not sought out other medications , only uses PRN pain medications as directed, and understands the consequences of over-medication. Wxcfh-xazszxmjrj-cfzxefpd with lasix/metolazone -if swelling /weight increase, okay to increase metolazone to daily as directed Cough- okay for robitussin dm Diarrhea- rx for lomotil written and instructed on use-follow up in 3 weeks, sooner if needed. Call with any concerns. 02/09/2018 Appointment: Ila Kennedy WPtel: [phone] [phone] (30 min) Complex 02/09/2018 Patient Education: Patient Medication Summary Completed 02/09/2018 Appointment: Araceli Silva WPtel: [phone] [facility] (15 min) Moderate 02/04/2018 Visit Plan: Edema/Lymphedema [...] of over-medication. 01/14/2018 Appointment: Araceli Silva WPtel: [facility] (15 min) Moderate 01/14/2018 Patient Education: Patient [...] oxycodone scheduled. 12/24/2017 Appointment: Araceli Silva WPtel: [facility] [place] (30 min) Complex 12/24/2017 Patient Education: [...] and output. 11/30/2017 Appointment: Araceli Silva WPtel: [facility] [place] (15 min) Moderate 11/30/2017 Patient Education: [...] of over-medication. 11/10/2017 Appointment: Araceli Silva WPtel: [address] [place], [place] [address] (15 min) Moderate 11/10/2017 Patient Education: Patient [...] hands/fingers. We will contact [facility] [employer] in [place] for paperwork regarding the scooter. 10/29/2017 Appointment: Araceli Silva WPtel: [phone] (15 min) Moderate 10/29/2017 Patient Education: Patient [...] time. 10/20/2017 Appointment: Araceli Silva WPtel: [phone] [facility] [place] (30 min) Complex 10/20/2017 Patient Education: [...] drained today. 09/29/2017 Appointment: Araceli Silva WPtel: [phone] (15 min) Moderate 09/29/2017 Patient Education: Patient [...] Completed 08/21/2017 Appointment: Araceli Silva WPtel: [phone] [facility] [place] (15 min) Moderate 08/20/2017 Visit Plan: Hemarthrosis shoulders - 250mL from left shoulder and 100mL from right shoulder with 1ml kenalog injected into right and left shoulders - Left and right shoulder pain and swelling, swelling into arms and left breast -pt to continue with use of compression sleeves. [id number] sep 2018 bristol 2ml kenalog 08/12/2017 Appointment: Araceli Silva WPtel: [phone] [facility] [place] (15 min) Moderate 08/12/2017 Patient Education: [...] edema. 08/05/2017 Appointment: Araceli Silva WPtel: [phone] [facility] [place] (15 min) Moderate 08/05/2017 Patient Education: [...] peripheral edema. 07/23/2017 Appointment: Araceli Silva WPtel: [phone] [facility] [place] (15 min) Moderate 07/23/2017 Patient Education: [...] symptoms. 07/09/2017 Appointment: Araceli Silva WPtel: [phone] [place] (15 min) Moderate 07/09/2017 Patient Education: [...] on fentanyl - monitor symptoms. 07/01/2017 Appointment: Aarceli Silva WPtel: [phone] [place] (15 min) Moderate 07/01/2017 Patient Education: Patient Medication Summary Completed 07/01/2017 Visit Plan: Chronic Pain Syndrome - pt has chronic pain - has been maintained on current medications, has not sought out other medications , only uses PRN pain medications as directed, and understands the consequences of over-medication. 06/24/2017 Appointment: Araceli Silva WPtel: [phone] [facility] [place] (15 min) Moderate 06/24/2017 Patient Education: [...] peripheral edema. 06/17/2017 Appointment: Araceli Silva WPtel: [facility] [place] (30 min) Complex 06/17/2017 Patient Education: Patient Medication Summary Completed 06/17/2017 Appointment: Araceli Silva WPtel: [facility] [place] (15 min) Moderate 06/08/2017 Care Plan: Referral Order SNOMED-CT : 547590497 Pending 06/02/2017 Visit Plan: Left and right [...] edema. 06/01/2017 [facility]ment: [facility] [place] ([facility] Complex 06/01/2017 Patient [...] from shoulder 04/02/2017 Appointment: Araceli Silva WPtel: [address] [facility] (15 min) Moderate 04/02/2017 Patient Education: [...] upset. 03/12/2017 Appointment: Araceli Silva WPtel: [phone] [place] (15 min) Moderate 03/12/2017 Patient Education: [...] check ROMIE. 01/08/2017 Appointment: Araceli Silva WPtel: [facility] (15 min) Moderate 01/08/2017 Patient Education: Patient [...] with Remicaide. 12/08/2016 Appointment: Araceli Silva WPtel: [facility] (15 min) Moderate 12/08/2016 Patient Education: Patient [...] for now 11/17/2016 Appointment: Araceli Silva WPtel: [facility] (15 min) Moderate 11/17/2016 Patient Education: [...] of over-medication. 11/10/2016 Appointment: Maricel Gee WPtel: [address] [place], [place] [address] (30 min) Complex 11/10/2016 Patient Education: Patient [...] steroids, immunosuppression. 11/05/2016 Appointment: Araceli Silva WPtel: [address] [place], [place] [phone] (15 min) Moderate 11/05/2016 Patient Education: Patient Medication Summary Completed 11/05/2016 Patient Education: Hypertension Completed 11/05/2016 Referral: External, Ordering Provider Referral Completed 10/23/2016 Referral: Dr Viregn Referral Initiated 10/16/2016 Visit Plan: OA with [...] cbc today. 10/07/2016 Appointment: Araceli Silva WPtel: [facility] (15 min) Moderate 10/07/2016 Patient Education: Patient Medication Summary Completed 10/07/2016 Care Plan: Referral Order SNOMED-CT : [id number] Pending 10/07/2016 Care Plan: Referral Order SNOMED-CT : [id number] Pending 10/07/2016 Visit Plan: Hemarthrosis -right shoulder-only able to drain 5ml of bloody drainage-unable to give oral steroids due to recent GI bleed -will give kenalog injection today in the office-discussed getting OSMO patch 10/02/2016 Appointment: Ila Kennedy WPtel: [phone] (30 min) Complex 10/02/2016 Patient Education: Patient Medication Summary Completed 10/02/2016 Appointment: Araceli Silva WPtel: [facility] (15 min) Moderate 09/23/2016 Appointment: Araceli Silva WPtel: [facility] (15 min) Moderate 09/17/2016 Visit Plan: Sacroiliitis - back exercises discussed with the patient, pt to continue with anti-inflammatories. Pt is to call if the symptoms do not improve or if they worsen. Kenalog injection today in the office. 09/12/2016 Appointment: Ila Kennedy WPtel: [phone] (15 min) Moderate 09/12/2016 Patient Education: Patient Medication Summary Completed 09/12/2016 Visit Plan: Hemarthrosis - drain right shoulder. Injection of kenalog 1mL - 40mg - [employer] - lot #[id number] , expires oct 2017 Chronic Pain Syndrome [...] of over-medication. 09/08/2016 Appointment: Araceli Silva WPtel: [facility] [place] (15 min) Moderate 09/08/2016 Patient [...] magnesium level 08/26/2016 Appointment: Araceli Silva WPtel: [phone] [facility] (15 min) Moderate 08/26/2016 Patient Education: [...] Summary Completed 08/18/2016 Appointment: Araceli Silva WPtel: [facility] (15 min) Moderate 08/13/2016 Appointment: Araceli Silva WPtel: [facility] (15 min) Moderate 08/06/2016 Visit Plan: Chronic [...] the daytime. 07/30/2016 Appointment: Araceli Silva WPtel: [facility] [place] (15 min) Moderate 07/30/2016 Patient Education: Patient Medication Summary Completed 07/30/2016 Visit Plan: Left shoulder pain - improving - pt is to notify clinic if symptoms do not improve, if they worsen, or with any questions or concerns. Nocturia - will give samples, pt is to notify clinic if symptoms do not improve. 07/14/2016 Appointment: Maricel Gee WPtel: [phone] [facility] (30 min) Complex 07/14/2016 Patient Education: Patient [...] dyspnea. 07/04/2016 Appointment: Maricel Gee WPtel: [address] [facility] (30 min) Complex 07/04/2016 Patient Education: Patient [...] over- medication. 06/26/2016 Appointment: Araceli Silva WPtel: [facility] (15 min) Moderate 06/26/2016 Patient Education: [...] of over-medication. 05/28/2016 Appointment: Araceli Silva WPtel: [facility] [place] (15 min) Moderate 05/28/2016 Patient Education: Patient Medication Summary Completed 05/28/2016 Patient Education: Hypertension Completed 05/28/2016 Appointment: Araceli Silva WPtel: [phone] [place] (15 min) Moderate 05/12/2016 Appointment: Araceli Silva WPtel: [facility] [place] (15 min) Moderate 04/15/2016 Appointment: Araceli Silva WPtel: [facility] [facility] [place] (30 min) Complex 03/25/2016 Visit Plan: [...] premarin. 03/18/2016 Appointment: Araceli Silva WPtel: [facility] [place] (30 min) Complex 03/18/2016 Patient Education: Patient Medication Summary Completed 03/18/2016 Appointment: Araceli Silva WPtel: [facility] [facility] [place] (15 min) Moderate 02/19/2016 Visit Plan: [...] of over-medication. 01/29/2016 Appointment: Araceli Silva WPtel: [address] [facility] [place] (15 min) Moderate 01/29/2016 Patient Education: Patient Medication Summary Completed 01/29/2016 Visit Plan: Discussed MRI of the neck - pt is interested in doing this - however, not prior to changing her medication first to see if this helps her pain 01/01/2016 Appointment: Araceli Silva WPtel: [phone] [facility] [place] (15 min) Moderate 01/01/2016 Patient Education: Patient Medication Summary Completed 01/01/2016 Patient Education: Hypertension Completed 01/01/2016 Appointment: Araceli Silva WPtel: [address] [facility] (15 min) Moderate 12/03/2015 Visit Plan: [...] nonhealing. 11/01/2015 Appointment: Ila Kennedy WPtel: [address] [phone] (15 min) Moderate 11/01/2015 Patient Education: Patient Medication Summary Completed 11/01/2015 Visit Plan: Chronic Pain Syndrome - pt has chronic pain - has been maintained on current medications, has not sought out other medications , only uses PRN pain medications as directed, and understands the consequences of over-medication. Muscle spasms - recommended muscle rub. 09/04/2015 Appointment: Araceli Silva WPtel: [address] [place], [place] [phone] (15 min) Moderate 09/04/2015 Patient Education: Patient Medication Summary Completed 09/04/2015 Visit Plan: Ecchymosis/hematoma - improving - discussed natural progression of hematomas - watchful waiting. 2015 Appointment: Araceli Silva WPtel: [facility] (15 min) Moderate 2015 Patient Education: Patient Medication Summary Completed 2015 Visit Plan: Cellulitis - continue with oral antibiotics as previously directed, return to clinic as previously directed, call for acute change in symptoms, worsening redness, warmth, discharge. 07/18/2015 Appointment: Ila Kennedy WPtel: [address] [place], [place] [phone] (30 min) Complex 07/18/2015 Patient Education: Patient [...] center/surgery center. 07/02/2015 Appointment: Araceli Silva WPtel: [facility] (15 min) Moderate 07/02/2015 Patient Education: [...] process. 04/09/2015 Appointment: Araceli Silva WPtel: [phone] (15 min) Moderate 04/09/2015 Patient Education: Patient [...] supplementation. 02/08/2015 Appointment: Araceli Silva WPtel: [phone] (15 min) Moderate 02/08/2015 Patient Education: Patient [...] the evening. 12/11/2014 Appointment: Araceli Silva WPtel: [address] [place], [place] [address] (15 min) Moderate 12/11/2014 Patient Education: Patient [...] - improved. 11/09/2014 Appointment: Araceli Silva WPtel: [address] [place], [place] [address] (15 min) Moderate 11/09/2014 Patient Education: Patient Medication Summary Completed 11/09/2014 Patient Education: Hypertension Completed 11/09/2014 Visit Plan: Leg pain/cellulitis of leg - start on the doxycycline twice daily - take this x 2 weeks, if the symptoms in your leg/ thigh are not completely resolved, there is a refill that is available. start on a probiotic one pill daily ([employer] or [employer]) this will help prevent the development of a bad type of diarrhea that can occur when taking antibiotics. Ulcer of toe - improving. 10/23/2014 Appointment: Araceli Silva WPtel: [address] [place], [place] [phone] (15 min) Moderate 10/23/2014 Patient Education: Patient Medication Summary Completed 10/23/2014 Visit Plan: Ulcer - keep lesion covered, antibiotic ointment to be used, monitor - call if redness increases or starts streaking up the foot. 10/16/2014 Appointment: Araceli Silva [facility]el[facility] [phone] [id number] (15 min) Moderate 10/16/2014 Patient Education: Patient [...] peripheral edema. 09/14/2014 Appointment: Araceli Silva [facility]el[facility] [phone] [id number] Follow up 09/14/2014 Patient Education: Patient Medication [...] medication. 07/12/2014 Appointment: Araceli Silva [facility]el[facility] [phone] [id number] [place] New Patient 07/12/2014 Patient Education: [...] Injection of kenalog 1mL - 40mg - [employer] - lot #[id number] , expires oct 2017 Chronic Pain Syndrome [...] start on a probiotic one pill daily ([employer] or [employer]) this will help prevent the development of a bad type of diarrhea that can occur when taking antibiotics. . Leg pain/cellulitis of leg - start on the doxycycline twice daily - take this x 2 weeks, if the symptoms in your leg/thigh are not completely resolved, there is a refill that is available. start on a probiotic one pill daily ([employer] or [employer]) this will help prevent the development of [...] hands/fingers. We will contact [facility] in [place] for paperwork regarding the scooter. . Hypertension [...] to continue with use of compression sleeves. [id number] sep 2018 bristol 2ml kenalog . Edema/Lymphedema [...] directed, and understands the consequences of over-medication. Gmksq-weeywywaqc-jjhmzjsz with lasix/metolazone -if swelling/weight increase, okay to [...] office. two old goats muscle rub from [employer] farm [facility] home. . Chronic Pain [...]
--- OUTSIDE RECORDS SUMMARY | 2018-06-03 16:09 | XMS REPORT | CCD ---
Author Author Araceli Silva Organization Araceli Silva MD, [facility] Address [address] [place] [address] Phone Care Team Providers Care Travel Counselor Name Role Phone PP Unavailable CCM Unavailable Summary Purpose Interface Exchange Insurance Providers Payer name Policy type / Coverage type Covered libertarian ID Effective Begin Date Effective End Date [employer] [employer] Medicare Part B [id number] 2017 Unknown AETNA Medicare Part B [id number] Unknown Family history Father Diagnosis Age At [...] Unknown Retired 07/12/[address]: 9833967 Quit over 10 years ago 1968 07/12/2014 Alcohol history Unknown occasionally drinks alcohol 07/12/2014 Allergies, Adverse Reactions, Alerts Substance Reaction Codes Entered Date Inactivated Date Status * NO KNOWN FOOD ALLERGIES Unknown 07/12/2014 No Inactive Date Active Penicillin Unknown 07/12/2014 No Inactive Date Active SULFA(SULFONAMIDE ANTIBIOTICS) Unknown 07/12/2014 No Inactive Date Active Past Medical History Illness Codes Condition Status Onset Date Resolved Date Sciatica Unknown Active 05/04/2018 Unknown Chronic pain [...] Problems Condition Codes Effective Dates Condition Status Sciatica Unknown 05/04/2018 Active Chronic pain syndrome [...] Instructions fentanyl 100 mcg/hr transdermal patch RxNorm: 064574 1 Patch TD Q72H 05/07/2018 06/05/2018 Active prednisone 10 mg tablet RxNorm: 546668 1 Tablet(s) PO UD 2 tabs daily x 1 week then decrease to 1 pill daily x 1 week then go back to 5mg daily 05/04/2018 05/24/2018 Active gabapentin 100 mg capsule RxNorm: 173474 1 Capsule(s) PO at bedtime x 1 week then increase up to one pill twice daily x 1 wk then TID thereafter 05/04/2018 08/31/2018 Active ondansetron 4 mg disintegrating tablet RxNorm: 783921 1 Tablet(s) PO TID as needed nausea and vomitting 04/21/2018 Active promethazine 25 mg tablet RxNorm: 461565 1 Tablet(s) PO TID as needed nausea and vomitting 04/21/2018 05/20/2018 Active promethazine 25 mg/mL injection solution RxNorm: 589708 Milliliter(s) Inj 04/21/2018 04/21/2018 Inactive ondansetron 4 mg disintegrating tablet RxNorm: 038863 1 Tablet(s) PO TID as needed nausea and vomitting 04/21/2018 Inactive promethazine 25 mg tablet RxNorm: 573118 1 Tablet(s) PO TID as needed nausea and vomitting 04/21/2018 04/25/2018 Inactive metolazone 10 mg tablet RxNorm: 611495 1 Tablet(s) PO every other day uncontrolled edema 04/08/2018 12/03/2018 Active fentanyl 100 mcg/hr transdermal patch RxNorm: 713654 1 Patch TD Q72H use with 25mcg/hr patch 04/07/2018 05/06/2018 Inactive fentanyl 25 mcg/hr transdermal patch RxNorm: 610832 1 Patch TD Q72H use with 100mcg patch for a total of 125mcg daily 04/07/2018 05/03/2018 Inactive potassium chloride ER 10 mEq tablet,extended release(part/ cryst) RxNorm: 2293019 2 Tablet(s) PO TID 03/30/2018 07/27/2018 Active oxycodone 30 mg tablet RxNorm: 9278424 1/2 Tablet(s) PO Q6 05/15/2018 Active fentanyl 25 mcg/hr transdermal patch RxNorm: 997095 1 Patch TD Q72H use with 100mcg patch for a total of 125mcg daily 03/17/2018 04/06/2018 Inactive Lasix 40 mg tablet RxNorm: 612709 Tablet(s) PO TAKE 1 TABLET BY MOUTH TWICE DAILY 03/04/2018 No Stop Date Active fentanyl 100 mcg/hr transdermal patch RxNorm: 281372 1 Patch TD Q72H use with 25mcg/hr patch 03/03/2018 04/01/2018 Inactive potassium chloride ER 10 mEq capsule,extended release RxNorm: 087588 2 Capsule(s) PO TID 03/03/2018 03/29/2018 Inactive albuterol sulfate 2.5 mg/3 mL (0.083 %) solution for nebulization RxNorm: 383453 3 Milliliter(s) INH Q4 PRN 02/18/2018 No Stop Date Active cefdinir 300 mg capsule RxNorm: 923618 1 Capsule(s) PO BID 02/24/2018 Inactive cefdinir 300 mg capsule RxNorm: 054531 1 Capsule(s) PO BID 02/17/2018 Inactive Flonase Allergy Relief 50 mcg/actuation nasal spray, suspension RxNorm: 1915160 2 [place]rose NASAL daily 02/12/20182017 Inactive Zithromax Z-Humberto 250 mg tablet RxNorm: 071732 1 Tablet(s) PO UD 02/12/2018 02/16/2018 Inactive Lomotil 2.5 mg-0.025 mg tablet RxNorm: 2522568 1 Tablet(s) PO BID PRN 02/09/2018 No Stop Date Active fentanyl 25 mcg/hr transdermal patch RxNorm: 593660 1 Patch TD Q72H use with 100mcg patch for a total of 125mcg daily 02/09/2018 03/10/2018 Inactive oxycodone 30 mg tablet RxNorm: 7235976 1/2 Tablet(s) PO Q6 03/14/2018 Inactive metolazone 10 mg tablet RxNorm: 436755 1 Tablet(s) PO QAM as needed uncontrolled edema 01/14/2018 03/14/2018 Inactive fentanyl 100 mcg/hr transdermal patch RxNorm: 378479 1 Patch TD Q72H use with 25mcg/hr patch 01/14/2018 02/12/2018 Inactive fentanyl 25 mcg/hr transdermal patch RxNorm: 002362 1 Patch TD Q72H use with 100mcg patch for a total of 125mcg daily 01/14/2018 02/08/2018 Inactive metolazone 10 mg tablet RxNorm: 471514 1 Tablet(s) PO every other day as needed uncontrolled edema 01/07/2018 01/13/2018 Inactive metolazone 10 mg tablet RxNorm: 583453 1 Tablet(s) PO every other day as needed uncontrolled edema 01/07/2018 01/06/2018 Inactive Cipro 500 mg tablet RxNorm: 655604 1 Tablet(s) PO BID 201701/05/2018 Inactive Cipro 500 mg tablet RxNorm: 020900 1 Tablet(s) PO BID 201701/15/2018 Inactive Cardizem CD 360 mg capsule,extended release RxNorm: 001891 1 Capsule(s) PO daily 01/05/2018 05/04/2018 Inactive potassium chloride ER 10 mEq tablet,extended release(part/ cryst) RxNorm: 1146299 2 Capsule(s) PO TID when taking lasix 01/05/2018 05/04/2018 Inactive potassium chloride ER 10 mEq capsule,extended release RxNorm: 705273 Capsule(s) TAKE 1 CAPSULE BY MOUTH TWICE DAILY WHEN TAKING LASIX (FUROSEMIDE) 11/27/2017 03/02/2018 Inactive potassium chloride ER 10 mEq capsule,extended release RxNorm: 720813 Capsule(s) TAKE 1 CAPSULE BY MOUTH TWICE DAILY WHEN TAKING LASIX (FUROSEMIDE) 11/27/2017 11/26/2017 Inactive fentanyl 25 mcg/hr transdermal patch RxNorm: 759245 1 Patch TD Q72H use with 100mcg patch for a total of 125mcg daily 11/27/2017 12/26/2017 Inactive bumetanide 0.5 mg tablet RxNorm: 223046 1 Tablet(s) PO daily 12/23/2017 Inactive in the afternoon x 3 days then as needed per Dr Silva fentanyl 100 mcg/hr transdermal patch RxNorm: 214939 1 Patch TD Q72H use with 25mcg/hr patch 11/27/2017 12/26/2017 Inactive oxycodone 30 mg tablet RxNorm: 5604847 1/2 Tablet(s) PO Q6 12/27/2017 Inactive fentanyl 100 mcg/hr transdermal patch RxNorm: 903623 1 Patch TD Q72H use with 25mcg/hr patch 10/29/2017 11/26/2017 Inactive Lasix 20 mg tablet RxNorm: 089427 TAKE 1 TABLET BY MOUTH TWICE DAILY 10/29/2017 03/03/2018 Inactive fentanyl 25 mcg/hr transdermal patch RxNorm: 450009 1 Patch TD Q72H use with 100mcg patch for a total of 125mcg daily 10/29/2017 11/26/2017 Inactive pantoprazole 40 mg tablet,delayed release RxNorm: 280971 Tablet(s) Take 1 tablet by mouth daily 10/21/2017 04/18/2018 Inactive - Ref: [id number] potassium chloride ER 10 mEq capsule,extended release RxNorm: 898264 TAKE 1 CAPSULE BY MOUTH TWICE DAILY WHEN TAKING LASIX (FUROSEMIDE) 10/09/2017 11/26/2017 Inactive fentanyl 25 mcg/hr transdermal patch RxNorm: 894358 1 Patch TD Q72H use with 100mcg patch for a total of 125mcg daily 10/01/2017 10/28/2017 Inactive fentanyl 100 mcg/hr transdermal patch RxNorm: 073476 1 Patch TD Q72H use with 25mcg/hr patch 10/01/2017 10/28/2017 Inactive potassium chloride ER 10 mEq tablet,extended release(part/ cryst) RxNorm: 2778306 1 Capsule(s) PO BID when taking lasix 09/22/2017 01/04/2018 Inactive fentanyl 100 mcg/hr transdermal patch RxNorm: 310810 1 Patch TD Q72H use with 25mcg/hr patch 08/31/2017 09/29/2017 Inactive Kenalog 40 mg/mL suspension for injection RxNorm: 5986926 1 Milliliter(s) Inj 08/31/2017 08/31/2017 Inactive fentanyl 25 mcg/hr transdermal patch RxNorm: 018753 1 Patch TD Q72H use with 100mcg patch for a total of 125mcg daily 08/31/2017 09/29/2017 Inactive oxycodone 30 mg tablet RxNorm: 0851582 1/2 Tablet(s) PO Q6 04/201710/28/2017 Inactive cyanocobalamin (vit B-12) 1,000 mcg/mL injection solution RxNorm: 207063 1 Milliliter(s) Inj monthly 08/21/201708/15 Active please provide her with syringe/needle for injection cyanocobalamin (vit B-12) 1,000 mcg/mL injection solution RxNorm: 867567 1 Milliliter(s) Inj monthly 08/21/201708/20 Inactive please provide her with syringe/needle for injection Kenalog 40 mg/mL suspension for injection RxNorm: 5852033 2 Milliliter(s) Inj 1mL in each shoulder 08/21/2017 08/21/2017 Inactive cyanocobalamin (vit B-12) 1,000 mcg/mL injection solution RxNorm: 384968 1 Milliliter(s) Inj monthly 08/21/201708/20 Inactive please provide her with syringe/needle for injection Kenalog 40 mg/mL suspension for injection RxNorm: 6366858 2 Milliliter(s) Inj UD 08/12/2017 08/12/2017 Inactive fentanyl 25 mcg/hr transdermal patch RxNorm: 784770 1 Patch TD Q72H use with 100mcg patch for a total of 125mcg daily 08/05/2017 08/30/2017 Inactive fentanyl 100 mcg/hr transdermal patch RxNorm: 867815 1 Patch TD Q72H use with 25mcg/hr patch 08/05/2017 08/30/2017 Inactive Kenalog 40 mg/mL suspension for injection RxNorm: 3097699 2 Milliliter(s) Inj 1mL per shoulder 08/05/2017 08/05/2017 Inactive clindamycin HCl 150 mg capsule RxNorm: 695229 1 Capsule(s) PO QID Dr Shultz prescribed 07/23/2017 07/29/2017 Inactive prednisone 5 mg tablet RxNorm: 338844 1 Tablet(s) PO daily 11/201707/03/2018 Active fentanyl 25 mcg/hr transdermal patch RxNorm: 669611 1 Patch TD Q72H use with 100mcg patch for a total of 125mcg daily 07/01/2017 07/30/2017 Inactive Lasix 20 mg tablet RxNorm: 119469 1 Tablet(s) PO BID 201710/28/2017 Inactive fentanyl 100 mcg/hr transdermal patch RxNorm: 832115 1 Patch TD Q72H use with 25mcg/hr patch 07/01/2017 07/30/2017 Inactive potassium chloride ER 10 mEq capsule,extended release RxNorm: 251759 1 Capsule(s) PO BID when taking lasix 07/01/20172017 Inactive oxycodone 30 mg tablet RxNorm: 4289430 1/2 Tablet(s) PO Q6 08/22/2017 Inactive fentanyl 100 mcg/hr transdermal patch RxNorm: 178962 1 Patch TD Q72H use with 25mcg/hr patch 05/07/2017 06/05/2017 Inactive fentanyl 25 mcg/hr transdermal patch RxNorm: 196742 1 Patch TD Q72H use with 100mcg patch for a total of 125mcg daily 05/07/2017 06/05/2017 Inactive fentanyl 100 mcg/hr transdermal patch RxNorm: 513910 1 Patch TD Q72H 04/08/2017 05/06/2017 Inactive fentanyl 25 mcg/hr transdermal patch RxNorm: 976261 1 Patch TD Q72H use with 100mcg patch for a total of 125mcg daily 04/08/2017 05/06/2017 Inactive Kenalog 40 mg/mL suspension for injection RxNorm: 9017861 1.5 Milliliter(s) Inj 04/02/2017 04/02/2017 Inactive fentanyl 100 mcg/hr transdermal patch RxNorm: 214904 1 Patch TD Q72H 03/12/2017 04/07/2017 Inactive fentanyl 25 mcg/hr transdermal patch RxNorm: 246664 1 Patch TD Q72H use with 100mcg patch for a total of 125mcg daily 03/12/2017 04/07/2017 Inactive oxycodone 30 mg tablet RxNorm: 1713214 1/2 Tablet(s) PO Q6 09/201704/07/2017 Inactive cyanocobalamin (vit B-12) 1,000 mcg/mL injection syringe RxNorm: 781623 1 Milliliter(s) Inj monthly 02/16/2017 No Stop Date Active please provide with supplys needed for injection fentanyl 100 mcg/hr transdermal patch RxNorm: 490541 1 Patch TD Q72H 02/06/2017 03/07/2017 Inactive Myrbetriq 50 mg tablet,extended release RxNorm: 7195747 1 Tablet(s) PO QPM 12/11/2016 07/22/2017 Inactive oxycodone 30 mg tablet RxNorm: 1654205 1/2 Tablet(s) PO Q6 10/201601/06/2017 Inactive naproxen 500 mg tablet RxNorm: 923600 1 Tablet(s) PO BID Take 1 tablet by mouth two times daily as needed 12/08/201607/08 Inactive - First Attempt Ref: [id number] Myrbetriq 50 mg tablet,extended release RxNorm: 8904777 1 Tablet(s) PO QPM 11/17/2016 12/10/2016 Inactive fentanyl 100 mcg/hr transdermal patch RxNorm: 800567 1 Patch TD Q72H 11/12/2016 12/11/2016 Inactive Vesicare 10 mg tablet RxNorm: 226764 1 Tablet(s) PO QPM 201611/18/2016 Inactive oxycodone 10 mg tablet RxNorm: 3259115 1-2 Tablet(s) PO Q4 PRN as needed to take between 30mg dose if needed for extra pain control 201612/07/2016 Inactive fentanyl 75 mcg/hr transdermal patch RxNorm: 824498 1 TD Q72H 10/22/2016 11/10/2016 Inactive oxycodone 10 mg tablet RxNorm: 5086590 1-2 Tablet(s) PO Q4 PRN as needed to take between 30mg dose if needed for extra pain control 201611/04/2016 Inactive Kenalog 40 mg/mL suspension for injection RxNorm: 9849890 1 Milliliter(s) Inj 10/02/2016 10/02/2016 Inactive Kenalog 40 mg/mL suspension for injection RxNorm: 4547046 1 Milliliter(s) Inj 09/12/2016 09/12/2016 Inactive cyclobenzaprine 5 mg tablet RxNorm: 029999 1 Tablet(s) PO Q8 as needed muscle spasms 09/11/2016 07/22/2017 Inactive prednisone 10 mg tablets in a dose pack RxNorm: 813619 1 Tablet(s) PO UD 09/09/2016 06/23/2017 Inactive potassium chloride ER 10 mEq capsule,extended release RxNorm: 196445 1 Capsule(s) PO BID as needed when taking lasix 08/26/2016 06/30/2017 Inactive Lasix 20 mg tablet RxNorm: 466976 1 Tablet(s) PO BID daily x 10 days then as needed edema 08/26/2016 12/23/2016 Inactive naproxen 500 mg tablet RxNorm: 652824 Take 1 tablet by mouth two times daily as needed 08/18/2016 11/15/2016 Inactive - First Attempt Ref: [id number] Lasix 20 mg tablet RxNorm: 300522 1 Tablet(s) PO QAM daily x 10 days then as needed edema 08/18/2016 08/25/2016 Inactive Vesicare 5 mg tablet RxNorm: 719333 1 Tablet(s) PO QPM 201611/04/2016 Inactive potassium chloride ER 10 mEq capsule,extended release RxNorm: 083616 1 Capsule(s) PO QAM as needed when taking lasix 08/18/2016 08/25/2016 Inactive Myrbetriq 25 mg tablet,extended release RxNorm: 8004963 1 Tablet(s) PO QHS 07/14/2016 07/29/2016 Inactive pantoprazole 40 mg tablet,delayed release RxNorm: 960517 Take 1 tablet by mouth daily 06/30/2016 12/26/2016 Inactive - Ref: [id number] Embeda 20 mg-0.8 mg capsule, extend release, oral only RxNorm: 551523 1 Capsule(s ) PO daily 06/04/2016 06/03/2016 Inactive Embeda 20 mg-0.8 mg capsule, extend release, oral only RxNorm: 429291 1 Capsule(s ) PO daily 06/04/2016 07/01/2016 Inactive oxycodone 10 mg tablet RxNorm: 5212829 1 Tablet(s) PO QID as needed to take between 30mg dose if needed for extra pain control 201606/10/2016 Inactive oxycodone 30 mg tablet RxNorm: 0737161 1 Tablet(s) PO Q6 201611/04/2016 Inactive cyanocobalamin (vit B-12) 1,000 mcg/mL injection solution RxNorm: 560562 1 Milliliter(s) Inj monthly 02/22/201602/15 Inactive she also needs syringes/ needles for this solution QS oxycodone 30 mg tablet RxNorm: 7493203 1 Tablet(s) PO Q6 201503/19/2016 Inactive oxycodone 10 mg tablet RxNorm: 2769148 1 Tablet(s) PO QID as needed to take between 30mg dose if needed for extra pain control 201503/19/2016 Inactive oxycodone 10 mg tablet RxNorm: 0896128 1 Tablet(s) PO QID as needed to take between 30mg dose if needed for extra pain control 201502/18/2016 Inactive oxycodone 30 mg tablet RxNorm: 7246372 1 Tablet(s) PO Q6 201502/18/2016 Inactive pantoprazole 40 mg tablet,delayed release RxNorm: 486675 Take 1 tablet by mouth daily 01/22/2016 06/29/2016 Inactive - First Attempt Ref: [id number] oxycodone 30 mg tablet RxNorm: 8145867 1 Tablet(s) PO Q6 201501/28/2016 Inactive oxycodone 10 mg tablet RxNorm: 0733647 1 Tablet(s) PO QID as needed take between 20mg dose if needed for extra pain control 11/07/2015 12/06/2015 Inactive oxycodone 20 mg tablet RxNorm: 2930178 1 Tablet(s) PO Q6 as needed 11/07/2015 12/31/2015 Inactive doxycycline hyclate 100 mg tablet RxNorm: 086652 1 Tablet(s) PO BID 11/01/2015 11/10/2015 Inactive potassium chloride ER 10 mEq capsule,extended release RxNorm: 029012 1 Capsule(s) PO TIW as needed when taking lasix 09/04/2015 08/17/2016 Inactive Voltaren 1 % topical gel RxNorm: 567649 2 Gram(s) TOP QID 08/2909/03/2015 Inactive pa approved Voltaren 1 % topical gel RxNorm: 625086 2 Gram(s) TOP QID 08/0808/29/2015 Inactive naproxen 500 mg tablet RxNorm: 597123 1 Tablet(s) PO BID 201508/17/2016 Inactive naproxen 500 mg tablet RxNorm: 315615 1 Tablet(s) PO BID 201508/08/2015 Inactive doxycycline hyclate 100 mg tablet RxNorm: 287478 1 Tablet(s) PO BID do not take calcium/vitamin d while on antibiotic 07/18/2015 07/31/2015 Inactive Vitamin D2 50,000 unit capsule RxNorm: 652177 1 Capsule(s) PO QW 07/02/2015 11/18/2015 Inactive Premarin 0.3 mg tablet RxNorm: 958835 1 Tablet(s) PO daily 12/201505/09/2015 Inactive Premarin 0.3 mg tablet RxNorm: 766812 1 Tablet(s) PO daily 12/201503/17/2016 Inactive simvastatin 40 mg tablet RxNorm: 366692 1 Tablet(s) PO daily 03/17/2016 Inactive spironolactone 25 mg tablet RxNorm: 805749 TAKE ONE TABLET BY MOUTH DAILY 05/07/2015 05/27/2016 Inactive potassium chloride ER 10 mEq capsule,extended release RxNorm: 758961 1 Capsule(s) PO TIW as needed when taking lasix 04/17/2015 09/03/2015 Inactive alendronate 70 mg tablet RxNorm: 164395 1 Tablet(s) PO weekly QW 04/17/2015 07/01/2015 Inactive Vitamin D2 50,000 unit capsule RxNorm: 918797 1 Capsule(s) PO QW 03/30/2015 06/27/2015 Inactive Vitamin D2 50,000 unit capsule RxNorm: 276689 1 Capsule(s) PO QW 03/21/2015 03/29/2015 Inactive cyanocobalamin (vit B-12) 1,000 mcg/mL injection solution RxNorm: 102069 1 Milliliter(s) Inj monthly 03/19/201502/20 Inactive cyanocobalamin (vit B-12) 1,000 mcg/mL injection solution RxNorm: 282773 1 Milliliter(s) Inj monthly 03/16/201503/18 Inactive cyanocobalamin (vit B-12) 1,000 mcg/mL injection solution RxNorm: 506924 1 Milliliter(s) Inj monthly 03/16/201503/15 Inactive pantoprazole 40 mg tablet,delayed release RxNorm: 178102 1 Tablet(s) PO daily 03/05/2015 01/21/2016 Inactive Lasix 20 mg tablet RxNorm: 672992 1 Tablet(s) PO TIW as needed edema 02/08/2015 02/02/2016 Inactive oxycodone 10 mg tablet RxNorm: 7882150 1 Tablet(s) PO QID as needed take between 20mg dose if needed for extra pain control 11/09/2014 12/08/2014 Inactive oxycodone 20 mg tablet RxNorm: 5719019 1 Tablet(s) PO Q6 as needed 10/25/2014 11/06/2015 Inactive doxycycline hyclate 100 mg tablet RxNorm: 969300 1 Tablet(s) PO BID 10/23/2014 11/19/2014 Inactive Cipro 500 mg tablet RxNorm: 036651 1 Tablet(s) PO BID 201410/16/2014 Inactive Cipro 500 mg tablet RxNorm: 003211 1 Tablet(s) PO BID 201410/09/2014 Inactive oxycodone 20 mg tablet RxNorm: 5480225 1 Tablet(s) PO Q6 as needed 09/25/2014 10/24/2014 Inactive Lasix 20 mg tablet RxNorm: 868646 1 Tablet(s) PO TIW as needed edema 09/14/2014 01/11/2015 Inactive potassium chloride ER 10 mEq capsule,extended release RxNorm: 153433 1 Capsule(s) PO TIW as needed when taking lasix 09/14/2014 01/11/2015 Inactive doxycycline hyclate 100 mg tablet RxNorm: 247911 1 Tablet(s) PO BID 09/05/2014 09/14/2014 Inactive doxycycline hyclate 100 mg tablet RxNorm: 748437 1 Tablet(s) PO BID 09/05/2014 09/04/2014 Inactive oxycodone 20 mg tablet RxNorm: 0971546 1 Tablet(s) PO Q6 as needed 08/29/2014 09/24/2014 Inactive spironolactone 25 mg tablet RxNorm: 596442 1 Tablet(s) PO daily 08/11/2014 03/08/2015 Inactive oxycodone 20 mg tablet RxNorm: 7730690 1 Tablet(s) PO Q6 as needed 08/02/2014 08/28/2014 Inactive Vitamin D3 2,000 unit tablet RxNorm: 172513 1 Tablet(s) PO daily 07/14/2014 No Stop Date Active Vitamin D2 50,000 unit capsule RxNorm: 401925 1 Capsule(s) PO QW 07/14/2014 10/11/2014 Inactive Vitamin D2 50,000 unit capsule RxNorm: 657598 1 Capsule(s) PO QW 07/14/2014 07/13/2014 Inactive Prolia 60 mg/mL subcutaneous syringe RxNorm: 790851 Milliliter(s) SQ EVERY 6 MONTHS No Start Date Active Carafate 1 gram tablet RxNorm: 953655 1 Tablet(s) PO BID No Start Date Active Miralax oral RxNorm: 206605 oral No Start Date Active Stool Softener oral RxNorm: 51386 oral No Start Date Active Calcium + Vitamin D oral RxNorm: 4018 oral No Start Date Active naproxen 500 mg tablet RxNorm: 255500 1 Tablet(s) PO BID No Start Date 08/05/2015 Inactive albuterol sulfate 2.5 mg/3 mL (0.083 %) solution for nebulization RxNorm: 257779 3 Milliliter(s) INH Q4 PRN No Start Date 02/17/2018 Inactive oxycodone 20 mg tablet RxNorm: 0815561 1 Tablet(s) PO Q6 as needed No Start Date 08/01/2014 Inactive aspirin 81 mg tablet RxNorm: 517255 1 Tablet(s) PO daily No Start Date 07/22/2017 Inactive simvastatin 40 mg tablet RxNorm: 328145 1 Tablet(s) PO daily No Start Date 05/09/2015 Inactive cyanocobalamin (vit B-12) 1,000 mcg/mL injection syringe RxNorm: 671594 1 Inj monthly No Start Date 02/15/2017 Inactive Reglan 10 mg tablet RxNorm: 299576 1 Tablet(s) PO as needed No Start Date 07/29/2016 Inactive alendronate 70 mg tablet RxNorm: 068981 1 Tablet(s) PO weekly No Start Date 04/16/2015 Inactive Protonix 40 mg tablet,delayed release RxNorm: 242311 1 Tablet(s) PO daily No Start Date 03/04/2015 Inactive cyclobenzaprine 5 mg tablet RxNorm: 691013 1 Tablet(s) PO Q8 as needed muscle spasms No Start Date 09/10/2016 Inactive Vitamin D3 1,000 unit capsule RxNorm: 939011 1 Capsule(s) PO daily No Start Date 07/13/2014 Inactive Cardizem CD 360 mg capsule,extended release RxNorm: 422363 1 Capsule(s) PO daily No Start Date 01/04/2018 Inactive prednisone 10 mg tablets in a dose pack RxNorm: 343902 1 Tablet(s) PO UD No Start Date 09/08/2016 Inactive Medication Administered Medication Codes Instructions Start Date Status promethazine 25 mg/mL injection solution RxNorm: 886214 Milliliter 04/21/2018 No longer Active Kenalog 40 mg/mL suspension for injection RxNorm: 5600827 1Milliliter 08/31/2017 No longer Active Kenalog 40 mg/mL suspension for injection RxNorm: 6401622 2Milliliter 08/21/2017 No longer Active Kenalog 40 mg/mL suspension for injection RxNorm: 0867636 2MilliliterUD 08/12/2017 No longer Active Kenalog 40 mg/mL suspension for injection RxNorm: 3820335 2Milliliter 08/05/2017 No longer Active Kenalog 40 mg/mL suspension for injection RxNorm: 0075422 1.5Milliliter 04/02/2017 No longer Active Kenalog 40 mg/mL suspension for injection RxNorm: 1674734 1Milliliter 10/02/2016 No longer Active Kenalog 40 mg/mL suspension for injection RxNorm: 8282051 1Milliliter 09/12/2016 No longer Active Immunizations Vaccine Codes Date Status Influenza CVX: 141 12/03/2017 completed Influenza CVX: 141 12/08/2016 completed Influenza CVX: 141 11/19/2015 completed Influenza CVX: 141 01/10/2015 completed Pneumococcal (Adult) CVX: 133 12/11/2014 completed Pneumococcal (Adult) CVX: 133 12/11/2014 completed Assessments Condition Codes Effective Dates Slow transit constipation ICD-10: K59.01 ICD-9: 564.01 [...] Reason For Visit Effective Dates Notes pain 05/04/2018 nausea 04/21/2018 vomiting diarrhea 03/03/2018 [...] Item Item Code Result Date Comp Metabolic Uro825 NA 134 mEq/L 03/03/2018 Comp Metabolic Qka746 K 3.3 mEq/L 03/03/2018 Comp Metabolic Zrt248 CL 90 mEq/L 03/03/2018 Comp Metabolic Xhh452 CO2 33.0 mEq/L 03/03/2018 Comp Metabolic Akz235 ANION GAP 14 03/03/2018 Comp Metabolic Icx401 GLUCOSE 146 mg/dL 03/03/2018 Comp Metabolic Crq611 Creat 1.7 mg/dL 03/03/2018 Comp Metabolic Yrw682 eGFR 31 ml/min/1.73m2 03/03/2018 Comp Metabolic Fbd350 BUN 74 mg/dL 03/03/2018 Comp Metabolic Hxu952 B/C Ratio 43.8 Ratio 03/03/2018 Comp Metabolic Kxf474 CALCIUM 8.6 mg/dL 03/03/2018 Comp Metabolic Unt673 ALK PHOS 70 U/L 03/03/2018 Comp Metabolic Xjv421 AST(SGOT) 14 U/L 03/03/2018 Comp Metabolic Yoa246 ALT(SGPT) 9 U/L 03/03/2018 Comp Metabolic Bwc474 BILI T 0.6 mg/dL 03/03/2018 Comp Metabolic Mwi943 ALBUMIN 3.8 g/dL 03/03/2018 Comp Metabolic Vxd141 TPRO 6.7 g/dL 03/03/2018 Comp Metabolic Wip154 GLOB 2.9 g/dL 03/03/2018 Comp Metabolic Udp580 A/G Ratio 1.3 Ratio 03/03/2018 Comp Metabolic Ipw380 Osmo 293 mOsmo 03/03/2018 Cbc With Differential [...] 29.9 pg 03/03/2018 Cbc With Differential Ord2 [place]% 11.1 % 03/03/2018 Cbc With Differential Ord2 [...] 1.38 K/ul 03/03/2018 Cbc With Differential Ord2 [place] ABS# 0.9 K/ul 03/03/2018 Cbc With Differential Ord2 Eos ABS# 0.0 K/ul 03/03/2018 Cbc With Differential Ord2 Baso ABS# 0.1 K/ul 03/03/2018 Tibc Ord40 Iron 75 ug/dl 10/22/2017 Tibc Ord40 UIBC 270 ug/dL 10/22/2017 Tibc Ord40 TIBC 345 ug/dL 10/22/2017 Tibc Ord40 Fe-%Sat 21.7 % 10/22/2017 Prealbumin 628801 PREALBUMIN 33 mg/dL 10/21/2017 Comp Metabolic Qth124 NA 134 mEq/L 10/20/2017 Comp Metabolic Oun259 K 3.7 mEq/L 10/20/2017 Comp Metabolic Tqf097 CL 93 mEq/L 10/20/2017 Comp Metabolic Bwk841 CO2 29.0 mEq/L 10/20/2017 Comp Metabolic Lrn905 ANION GAP 16 10/20/2017 Comp Metabolic Pvv099 GLUCOSE 115 mg/dL 10/20/2017 Comp Metabolic Cle464 Creat 0.8 mg/dL 10/20/2017 Comp Metabolic Xug610 eGFR 73 ml/min/1.73m2 10/20/2017 Comp Metabolic Xnn072 BUN 46 mg/dL 10/20/2017 Comp Metabolic Ryp312 B/C Ratio 57.5 Ratio 10/20/2017 Comp Metabolic Fbz025 CALCIUM 8.7 mg/dL 10/20/2017 Comp Metabolic Jrb375 ALK PHOS 56 U/L 10/20/2017 Comp Metabolic Oal046 AST(SGOT) 19 U/L 10/20/2017 Comp Metabolic Zfc855 ALT(SGPT) 23 U/L 10/20/2017 Comp Metabolic Zaj470 BILI T 0.6 mg/dL 10/20/2017 Comp Metabolic Lmw687 ALBUMIN 4.0 g/dL 10/20/2017 Comp Metabolic Cya263 TPRO 6.6 g/dL 10/20/2017 Comp Metabolic Don971 GLOB 2.7 g/dL 10/20/2017 Comp Metabolic Dte448 A/G Ratio 1.5 Ratio 10/20/2017 Comp Metabolic Txf981 Osmo 281 mOsmo 10/20/2017 Tsh Ord6 TSH [...] 35.4 pg 10/20/2017 Cbc With Differential Ord2 [place]% 9.9 % 10/20/2017 Cbc With Differential Ord2 [...] 1.15 K/ul 10/20/2017 Cbc With Differential Ord2 [place] ABS# 0.6 K/ul 10/20/2017 Cbc With Differential Ord2 Eos ABS# 0.0 K/ul 10/20/2017 Cbc With Differential Ord2 Baso ABS# 0.0 K/ul 10/20/2017 Iron Ord72 Iron 75 ug/dl 10/20/2017 Luann Reflex Profile [id number] LUANN (BRYANNA) SCREEN NONE DETECTED 01/12/2017 Comp Metabolic Tdh936 NA 129 mEq/L 01/08/2017 Comp Metabolic Bbd028 K 3.9 mEq/L 01/08/2017 Comp Metabolic Uet234 CL 94 mEq/L 01/08/2017 Comp Metabolic Ude322 CO2 31.0 mEq/L 01/08/2017 Comp Metabolic Wdk869 ANION GAP 8 01/08/2017 Comp Metabolic Qwe377 GLUCOSE 103 mg/dL 01/08/2017 Comp Metabolic Rlw475 Creat 0.9 mg/dL 01/08/2017 Comp Metabolic Ywb039 eGFR 61 ml/min/1.73m2 01/08/2017 Comp Metabolic Rek221 BUN 29 mg/dL 01/08/2017 Comp Metabolic Jcj098 B/C Ratio 30.9 Ratio 01/08/2017 Comp Metabolic Sdl326 CALCIUM 8.5 mg/dL 01/08/2017 Comp Metabolic Jyp151 ALK PHOS 58 U/L 01/08/2017 Comp Metabolic Lcc114 AST(SGOT) 17 U/L 01/08/2017 Comp Metabolic Nch330 ALT(SGPT) 10 U/L 01/08/2017 Comp Metabolic Wrz464 BILI T 0.4 mg/dL 01/08/2017 Comp Metabolic Ofs720 ALBUMIN 3.0 g/dL 01/08/2017 Comp Metabolic Phg102 TPRO 5.5 g/dL 01/08/2017 Comp Metabolic Ujm937 GLOB 2.5 g/dL 01/08/2017 Comp Metabolic Qut580 A/G Ratio 1.2 Ratio 01/08/2017 Comp Metabolic Myr234 Osmo 265 mOsmo 01/08/2017 Cbc With Differential [...] 33.8 pg 01/08/2017 Cbc With Differential Ord2 [place]% 12.2 % 01/08/2017 Cbc With Differential Ord2 [...] 1.62 K/ul 01/08/2017 Cbc With Differential Ord2 [place] ABS# 0.9 K/ul 01/08/2017 Cbc With Differential [...] 33.1 pg 11/10/2016 Cbc With Differential Ord2 [place]% 9.1 % 11/10/2016 Cbc With Differential Ord2 [...] 0.78 K/ul 11/10/2016 Cbc With Differential Ord2 [place] ABS# 0.5 K/ul 11/10/2016 Cbc With Differential [...] 30.3 pg 10/07/2016 Cbc With Differential Ord2 [place]% 11.8 % 10/07/2016 Cbc With Differential Ord2 [...] 1.54 K/ul 10/07/2016 Cbc With Differential Ord2 [place] ABS# 1.0 K/ul 10/07/2016 Cbc With Differential Ord2 Eos ABS# 0.1 K/ul 10/07/2016 Cbc With Differential Ord2 Baso ABS# 0.0 K/ul 10/07/2016 Comp Metabolic Adi769 NA 129 mEq/L 08/26/2016 Comp Metabolic Mcq362 K 3.9 mEq/L 08/26/2016 Comp Metabolic Hjo379 CL 93 mEq/L 08/26/2016 Comp Metabolic Wqu436 CO2 30.0 mEq/L 08/26/2016 Comp Metabolic Vns499 ANION GAP 10 08/26/2016 Comp Metabolic Vae113 GLUCOSE 87 mg/dL 08/26/2016 Comp Metabolic Rdf824 Creat 0.6 mg/dL 08/26/2016 Comp Metabolic Jel654 eGFR 96 ml/min/1.73m2 08/26/2016 Comp Metabolic Xhb038 BUN 17 mg/dL 08/26/2016 Comp Metabolic Oeb014 B/C Ratio 27.0 Ratio 08/26/2016 Comp Metabolic Bnt180 CALCIUM 7.6 mg/dL 08/26/2016 Comp Metabolic Nrd478 ALK PHOS 72 U/L 08/26/2016 Comp Metabolic Rcu942 AST(SGOT) 20 U/L 08/26/2016 Comp Metabolic Adl830 ALT(SGPT) 12 U/L 08/26/2016 Comp Metabolic Poi658 BILI T 0.3 mg/dL 08/26/2016 Comp Metabolic Tlr112 ALBUMIN 2.7 g/dL 08/26/2016 Comp Metabolic Akl087 TPRO 5.3 g/dL 08/26/2016 Comp Metabolic Uwd677 GLOB 2.6 g/dL 08/26/2016 Comp Metabolic Erq478 A/G Ratio 1.1 Ratio 08/26/2016 Comp Metabolic Auy804 Osmo 260 mOsmo 08/26/2016 Cbc With Differential [...] 28.3 pg 08/26/2016 Cbc With Differential Ord2 [place]% 9.6 % 08/26/2016 Cbc With Differential Ord2 [...] 1.83 K/ul 08/26/2016 Cbc With Differential Ord2 [place] ABS# 1.0 K/ul 08/26/2016 Cbc With Differential Ord2 Eos ABS# 0.1 K/ul 08/26/2016 Cbc With Differential Ord2 Baso ABS# 0.0 K/ul 08/26/2016 Magnesium Ord90 Mag 1.9 mg/dL 08/26/2016 Vitamin D 25 Oh [id number] VITAMIN D, 25 HYDROXY 34.59 ng/mL Tibc Ord40 Iron 13 ug/dl 08/26/2016 Tibc Ord40 UIBC 283 ug/dL 08/26/2016 Tibc Ord40 TIBC 296 ug/dL 08/26/2016 Tibc Ord40 Fe-%Sat 4.4 % 08/26/2016 Ferritin Ord22 FERRITIN 28.8 ng/mL 08/26/2016 Sed Rate Ord21 ESR 20 mm/hr 11/19/2015 Comp Metabolic Ife662 NA 131 mEq/L 08/22/2015 Comp Metabolic Xkr512 K 4.2 mEq/L 08/22/2015 Comp Metabolic Hls741 CL 98 mEq/L 08/22/2015 Comp Metabolic Dko280 CO2 27.0 mEq/L 08/22/2015 Comp Metabolic Vju384 ANION GAP 10 08/22/2015 Comp Metabolic Wzs688 GLUCOSE 80 mg/dL 08/22/2015 Comp Metabolic Xqu635 Creat 0.5 mg/dL 08/22/2015 Comp Metabolic Gco746 eGFR 120 ml/min/1.73m2 08/22/2015 Comp Metabolic Lwj778 BUN 13 mg/dL 08/22/2015 Comp Metabolic Dji166 B/C Ratio 25.0 Ratio 08/22/2015 Comp Metabolic Wqy013 CALCIUM 8.2 mg/dL 08/22/2015 Comp Metabolic Zmz399 ALK PHOS 49 U/L 08/22/2015 Comp Metabolic Ahi664 AST(SGOT) 18 U/L 08/22/2015 Comp Metabolic Qzx409 ALT(SGPT) 11 U/L 08/22/2015 Comp Metabolic Pes667 BILI T 0.5 mg/dL 08/22/2015 Comp Metabolic Enk301 ALBUMIN 3.5 g/dL 08/22/2015 Comp Metabolic Eoy813 TPRO 6.2 g/dL 08/22/2015 Comp Metabolic Eac712 GLOB 2.7 g/dL 08/22/2015 Comp Metabolic Asm966 A/G Ratio 1.3 Ratio 08/22/2015 Comp Metabolic Skx063 Osmo 262 mOsmo 08/22/2015 Cbc With Differential [...] 32.4 pg 08/22/2015 Cbc With Differential Ord2 [place]% 10.3 % 08/22/2015 Cbc With Differential Ord2 [...] 1.39 K/ul 08/22/2015 Cbc With Differential Ord2 [place] ABS# 0.7 K/ul 08/22/2015 Cbc With Differential Ord2 Eos ABS# 0.1 K/ul 08/22/2015 Cbc With Differential Ord2 Baso ABS# 0.0 K/ul 08/22/2015 Tsh Ord6 hTSH II 2.19 uIU/mL 08/22/2015 Vitamin D 25 Oh [id number] VITAMIN D, 25 HYDROXY 55.10 ng/mL Lipid [...] 1.5 Ratio 03/16/2015 Vitamin D 25 Oh Hlg1757 VITAMIN D, 25 HYDROXY 28.94 ng/mL Cbc [...] 28.1 pg 03/16/2015 Cbc With Differential Ord2 [place]% 11.2 % 03/16/2015 Cbc With Differential Ord2 [...] 2.37 K/ul 03/16/2015 Cbc With Differential Ord2 [place] ABS# 0.8 K/ul 03/16/2015 Cbc With Differential Ord2 Eos ABS# 0.1 K/ul 03/16/2015 Cbc With Differential Ord2 Baso ABS# 0.0 K/ul 03/16/2015 Cbc With Differential Ord2 New Analyzer Notice Please note new ref ranges starting 03-14-2015 due to implemntation of new five part differential hematolgy analyzer. 03/16/2015 Comp Metabolic Vaz989 NA 131 mEq/L 03/16/2015 Comp Metabolic Ept261 K 4.1 mEq/L 03/16/2015 Comp Metabolic Jtw829 CL 94 mEq/L 03/16/2015 Comp Metabolic Ppd355 CO2 28.0 mEq/L 03/16/2015 Comp Metabolic Ofv970 ANION GAP 13 03/16/2015 Comp Metabolic Eti499 GLUCOSE 96 mg/dL 03/16/2015 Comp Metabolic Lyb157 Creat 0.7 mg/dL 03/16/2015 Comp Metabolic Azu651 eGFR 80 ml/min/1.73m2 03/16/2015 Comp Metabolic Bal365 BUN 16 mg/dL 03/16/2015 Comp Metabolic Lbv781 B/C Ratio 21.6 Ratio 03/16/2015 Comp Metabolic Wut067 CALCIUM 8.9 mg/dL 03/16/2015 Comp Metabolic Baz138 ALK PHOS 44 U/L 03/16/2015 Comp Metabolic Ozo969 AST(SGOT) 22 U/L 03/16/2015 Comp Metabolic Beo682 ALT(SGPT) 14 U/L 03/16/2015 Comp Metabolic Vyf645 BILI T 0.5 mg/dL 03/16/2015 Comp Metabolic Yvh813 ALBUMIN 3.4 g/dL 03/16/2015 Comp Metabolic Ogx428 TPRO 6.0 g/dL 03/16/2015 Comp Metabolic Kuh127 GLOB 2.6 g/dL 03/16/2015 Comp Metabolic Vav489 A/G Ratio 1.3 Ratio 03/16/2015 Comp Metabolic Nyi378 Osmo 264 mOsmo 03/16/2015 Comp Metabolic Wbe692 NA 129 mEq/L 11/09/2014 Comp Metabolic Uvp155 K 4.2 mEq/L 11/09/2014 Comp Metabolic Coa352 CL 96 mEq/L 11/09/2014 Comp Metabolic Wgm611 CO2 27.0 mEq/L 11/09/2014 Comp Metabolic Bos624 ANION GAP 10 11/09/2014 Comp Metabolic Tdj149 GLUCOSE 144 mg/dL 11/09/2014 Comp Metabolic Xku083 Creat 0.8 mg/dL 11/09/2014 Comp Metabolic Btg342 eGFR 73 ml/min/1.73m2 11/09/2014 Comp Metabolic Zno444 BUN 22 mg/dL 11/09/2014 Comp Metabolic Hdw708 B/C Ratio 27.5 Ratio 11/09/2014 Comp Metabolic Oxi496 CALCIUM 8.6 mg/dL 11/09/2014 Comp Metabolic Gnx942 ALK PHOS 55 U/L 11/09/2014 Comp Metabolic Npd537 AST(SGOT) 27 U/L 11/09/2014 Comp Metabolic Yas023 ALT(SGPT) 18 U/L 11/09/2014 Comp Metabolic Mjt919 BILI T 0.5 mg/dL 11/09/2014 Comp Metabolic Mdf706 ALBUMIN 3.0 g/dL 11/09/2014 Comp Metabolic Djy927 TPRO 5.4 g/dL 11/09/2014 Comp Metabolic Lak291 GLOB 2.4 g/dL 11/09/2014 Comp Metabolic Fmt841 A/G Ratio 1.3 Ratio 11/09/2014 Comp Metabolic Lto177 Osmo 265 mOsmo 11/09/2014 Magnesium Ord90 Mag [...] greater than right Full Exam - General 1995 Musculoskeletal gait and station Overall: normal gait [...] Procedure Codes Date THER/PROPH/DIAG INJ SC/IM CPT-4: 64725 04/21/2018 PROMETHAZINE HCL INJECTION CPT-4: J2550 04/21/2018 DRAIN/INJECT JOINT/BURSA CPT-4: 56844 08/21/2017 DRAIN/INJECT JOINT/BURSA CPT-4: 32939 08/12/2017 TRIAMCINOLONE ACET INJ NOS CPT-4: J3301 08/12/2017 DRAIN/INJECT JOINT/BURSA CPT-4: 75088 08/05/2017 TRIAMCINOLONE ACET INJ NOS CPT-4: J3301 08/05/2017 DRAIN/INJECT JOINT/BURSA CPT-4: 16572 07/23/2017 DRAIN/INJECT JOINT/BURSA CPT-4: 60512 07/09/2017 TRIAMCINOLONE ACET INJ NOS CPT-4: J3301 07/09/2017 PRESCRIP TRANSMIT VIA ERX SY CPT-4: G8553 07/09/2017 DRAIN/INJECT JOINT/BURSA CPT-4: 15772 07/01/2017 TRIAMCINOLONE ACET INJ NOS CPT-4: J3301 07/01/2017 PRESCRIP TRANSMIT VIA ERX SY CPT-4: G8553 07/01/2017 DRAIN/INJECT JOINT/BURSA CPT-4: 13375 06/17/2017 DRAIN/INJECT JOINT/BURSA CPT-4: 54228 04/02/2017 TRIAMCINOLONE ACET INJ NOS CPT-4: J3301 04/02/2017 DRAIN/INJECT JOINT/BURSA CPT-4: 00288 02/06/2017 ADMIN INFLUENZA VIRUS VAC CPT-4: G0008 12/08/2016 FLU VACC PRSV FREE INC ANTIG CPT-4: 52098 12/08/2016 PRESCRIP TRANSMIT VIA ERX SY CPT-4: G8553 12/08/2016 PRESCRIP TRANSMIT VIA ERX SY CPT-4: G8553 11/17/2016 TRIAMCINOLONE ACET INJ NOS CPT-4: J3301 10/02/2016 TRIAMCINOLONE ACET INJ NOS CPT-4: J3301 09/12/2016 DRAIN/INJECT JOINT/BURSA CPT-4: 39889 09/08/2016 TRIAMCINOLONE ACET INJ NOS CPT-4: J3301 09/08/2016 PRESCRIP TRANSMIT VIA ERX SY CPT-4: G8553 08/26/2016 PRESCRIP TRANSMIT VIA ERX SY CPT-4: G8553 08/18/2016 ADMIN INFLUENZA VIRUS VAC CPT-4: G0008 11/19/2015 FLU VACC PRSV FREE INC ANTIG Formatting Model/CDA Sections, Assigned to/Luanne Elaine CPT-4: 79662Gvxwdex 11/19/2015 PRESCRIP TRANSMIT VIA ERX SY CPT-4: G8553 09/04/2015 PRESCRIP TRANSMIT VIA ERX SY CPT-4: G8553 2015 PRESCRIP TRANSMIT VIA ERX SY CPT-4: G8553 07/18/2015 PRESCRIP TRANSMIT VIA ERX SY CPT-4: G8553 07/02/2015 REMOVE IMPACTED EAR WAX UNI CPT-4: 31518 04/09/2015 PRESCRIP TRANSMIT VIA ERX SY CPT-4: G8553 02/08/2015 ADMIN INFLUENZA VIRUS VAC CPT-4: G0008 01/10/2015 FLU VACC PRSV FREE INC ANTIG Formatting Model/CDA Sections, Assigned to/Luanne Elaine CPT-4: 52918Zmxsnph 01/10/2015 ADMIN PNEUMOCOCCAL VACCINE Formatting Model/CDA Sections, Assigned to SNOMED CT: [id number] CPT-4: E5641Kuloxvf 12/11/2014 PNEUMOCOCCAL VACC [address]: 09404689 CPT-4: 85375 12/11/2014 Vital Signs Date Vital 05/04/2018 Blood Pressure 1: 122/70 Code : [...] Code : 8480-6 BMI: 23.5 Code : 11775-2 Heart Rate 1 : 58 bpm Height: 5'8" SpO2: 96% Weight: 152 lbs 11/30/2017 Blood Pressure 1: 122/70 Code : 8480-6 Heart Rate 1: 105 bpm Height: 5'8" SpO2: 98% Weight: 11/27/2017 Blood Pressure 1: 148/76 Code : 8480-6 Heart Rate 1: 72 bpm Height: 5'8" SpO2: 99% Weight: 11/10/2017 Blood Pressure 1: 130/76 Code : 8480-6 BMI: 27.3 Code : 20629-7 Heart Rate 1 : 98 bpm Height: 5'8" SpO2: 96% Weight: 177 lbs 10/29/2017 Blood Pressure 1: 124/72 Code : 8480-6 Heart Rate 1: 91 bpm Height: SpO2: 94% Weight: 10/20/2017 Blood Pressure 1: 120/62 Code : 8480-6 Heart Rate 1: 100 bpm Height: SpO2: 96% Weight: 09/29/2017 Blood Pressure 1: 12468 Code : 8480-6 Heart Rate 1: 110 bpm Height: SpO2: 99% Weight: 09/15/2017 Blood Pressure 1: 12268 Code : 8480-6 BMI: 24.7 Code : 91113-4 Heart Rate 1 : 100 bpm Height: 5'8" SpO2: 95% Weight: 160 lbs 08/31/2017 Blood Pressure 1: 128/78 Code : 8480-6 BMI: 23.6 Code : 56000-3 Heart Rate 1 : 102 bpm Height: 5'8" SpO2: 96% Weight: 153 lbs 08/21/2017 Blood Pressure 1: 138/78 Code : 8480-6 Heart Rate 1: 97 bpm SpO2: 95% Weight: 156 lbs 2 oz 08/12/2017 Blood Pressure 1: 138/74 Code : 8480-6 BMI: 25.0 Code : 19510-0 Heart Rate 1 : 94 bpm Height: 5'8" SpO2: 98% Weight: 162 lbs 08/05/2017 Blood Pressure 1: 126/78 Code : 8480-6 BMI: 25.8 Code : 10593-8 Heart Rate 1 : 74 bpm Height: 5'8" SpO2: 96% Weight: 167 lbs 07/23/2017 Blood Pressure 1: 106/64 Code : 8480-6 BMI: 25.3 Code : 76279-6 Heart Rate 1 : 81 bpm Height: 5'8" SpO2: 99% Weight: 163 lbs 14 oz 07/09/2017 Blood Pressure 1: 130/68 Code : 8480-6 Heart Rate 1: 82 bpm Height: 5'8" SpO2: 98% Weight: 07/01/2017 Blood Pressure 1: 124/76 Code : 8480-6 BMI: 26.5 Code : 25434-6 Heart Rate 1 : 99 bpm Height: 5'8" SpO2: 98% Weight: 172 lbs 06/24/2017 Blood Pressure 1: 118/70 Code : 8480-6 Heart Rate 1: 103 bpm Height: 5'8" SpO2: 98% Weight: 06/17/2017 Blood Pressure 1: 110/64 Code : 8480-6 BMI: 25.0 Code : 27503-2 Heart Rate 1 : 73 bpm Height: 5'8" Weight: 162 lbs 06/01/2017 Blood Pressure 1: 158/84 Code : 8480-6 BMI: 24.4 Code : 17713-5 Heart Rate 1 : 94 bpm Height: 5'8" SpO2: 95% Weight: 158 lbs 04/02/2017 Blood Pressure 1: 164/80 Code : 8480-6 BMI: 23.1 Code : 90507-0 Heart Rate 1 : 76 bpm Height: 5'8" SpO2: 94% Weight: 150 lbs 03/12/2017 Blood Pressure 1: 130/74 Code : 8480-6 BMI: 23.0 Code : 64084-5 Heart Rate 1 : 92 bpm Height: 5'8" SpO2: 94% Weight: 149 lbs 02/06/2017 Height: Weight: 01/08/2017 Blood Pressure 1: 136/76 Code : 8480-6 BMI: 21.4 Code : 05879-7 Heart Rate 1 : 85 bpm Height: 5'8" SpO2: 98% Weight: 138 lbs 8 oz 12/08/2016 Blood Pressure 1: 132/66 Code : 8480-6 BMI: 22.2 Code : 13066-1 Heart Rate 1 : 106 bpm Height: 5'8" SpO2: 97% Weight: 144 lbs 11/17/2016 Blood Pressure 1: 146/80 Code : 8480-6 BMI: 22.4 Code : 36195-9 Heart Rate 1 : 100 bpm Height: 5'8" SpO2: 98% Weight: 145 lbs 11/10/2016 Blood Pressure 1: 122/62 Code : 8480-6 BMI: 22.2 Code : 62294-2 Height: 5'8" Weight: 144 lbs 11/05/2016 Blood Pressure 1: 146/80 Code : 8480-6 BMI: 22.2 Code : 59877-8 Heart Rate 1 : 77 bpm Height: 5'8" SpO2: 99% Weight: 144 lbs 10/07/2016 Blood Pressure 1: 132/68 Code : 8480-6 BMI: 22.8 Code : 28913-8 Heart Rate 1 : 90 bpm Height: 5'8" SpO2: 97% Weight: 148 lbs 10/02/2016 Blood Pressure 1: 166/86 Code : 8480-6 BMI: 22.8 Code : 99536-5 Heart Rate 1 : 96 bpm Height: 5'8" SpO2: 96% Weight: 148 lbs 09/12/2016 Blood Pressure 1: 130/86 Code : 8480-6 Height: Weight: 09/08/2016 Blood Pressure 1: 132/74 Code : 8480-6 BMI: 22.4 Code : 03770-7 Heart Rate 1 : 93 bpm Height: 5'8" SpO2: 99% Weight: 145 lbs 08/26/2016 Blood Pressure 1: 132/78 Code : 8480-6 BMI: 23.9 Code : 00884-4 Heart Rate 1 : 80 bpm Height: 5'8" SpO2: 94% Weight: 155 lbs 08/18/2016 Blood Pressure 1: 130/70 Code : 8480-6 BMI: 23.6 Code : 53891-8 Heart Rate 1 : 100 bpm Height: 5'8" SpO2: 94% Weight: 153 lbs 07/30/2016 Blood Pressure 1: 144/84 Code : 8480-6 BMI: 22.4 Code : 99355-6 Heart Rate 1 : 86 bpm Height: 5'8" SpO2: 97% Weight: 145 lbs 07/14/2016 Blood Pressure 1: 122/74 Code : 8480-6 BMI: 22.5 Code : 88452-9 Heart Rate 1 : 87 bpm Height: 5'8" SpO2: 97% Weight: 146 lbs 07/04/2016 Blood Pressure 1: 128/78 Code : 8480-6 BMI: 22.5 Code : 62613-5 Heart Rate 1 : 98 bpm Height: 5'8" Weight: 146 lbs 06/26/2016 Blood Pressure 1: 122/68 Code : 8480-6 BMI: 22.5 Code : 99145-8 Heart Rate 1 : 102 bpm Height: 5'8" SpO2: 98% Weight: 146 lbs 05/28/2016 Blood Pressure 1: 122/68 Code : 8480-6 BMI: 22.4 Code : 66060-1 Heart Rate 1 : 89 bpm Height: 5'8" SpO2: 97% Weight: 145 lbs 03/18/2016 Blood Pressure 1: 132/66 Code : 8480-6 BMI: 22.8 Code : 30552-1 Heart Rate 1 : 96 bpm Height: 5'8" SpO2: 98% Weight: 148 lbs 01/29/2016 Blood Pressure 1: 122/66 Code : 8480-6 BMI: 22.2 Code : 97324-9 Heart Rate 1 : 90 bpm Height: 5'8" SpO2: 99% Weight: 144 lbs 01/01/2016 Blood Pressure 1: 148/82 Code : 8480-6 BMI: 22.5 Code : 18704-5 Heart Rate 1 : 82 bpm Height: 5'8" Weight: 146 lbs 11/19/2015 Blood Pressure 1: 140/74 Code : 8480-6 BMI: 23.7 Code : 05769-5 Heart Rate 1 : 79 bpm Height: 5'8" SpO2: 96% Weight: 153 lbs 8 oz 11/01/2015 Blood Pressure 1: 118/72 Code : 8480-6 Heart Rate 1: 90 bpm Height: 5'8" SpO2: 95% 09/04/2015 Blood Pressure 1: 136/72 Code : 8480-6 BMI: 23.1 Code : 05438-9 Heart Rate 1 : 97 bpm Height: 5'8" SpO2: 98% Weight: 149 lbs 8 oz 2015 Blood Pressure 1: 144/76 Code : 8480-6 BMI: 22.8 Code : 62005-0 Heart Rate 1 : 75 bpm Height: 5'8" SpO2: 97% Weight: 148 lbs 07/18/2015 Blood Pressure 1: 132/60 Code : 8480-6 BMI: 23.1 Code : 91753-5 Heart Rate 1 : 78 bpm Height: 5'8" Weight: 150 lbs 07/02/2015 Blood Pressure 1: 156/86 Code : 8480-6 BMI: 23.0 Code : 01364-3 Heart Rate 1 : 75 bpm Height: 5'8" SpO2: 99% Weight: 149 lbs 05/31/2015 Blood Pressure 1: 136/72 Code : 8480-6 BMI: 22.7 Code : 02882-4 Heart Rate 1 : 85 bpm Height: 5'8" SpO2: 97% Weight: 147 lbs 04/09/2015 Blood Pressure 1: 118/60 Code : 8480-6 BMI: 22.7 Code : 80627-1 Heart Rate 1 : 72 bpm Height: 5'8" SpO2: 95% Weight: 147 lbs 02/08/2015 Blood Pressure 1: 138/76 Code : 8480-6 BMI: 23.1 Code : 78371-7 Heart Rate 1 : 80 bpm Height: 5'8" SpO2: 98% Weight: 150 lbs 12/11/2014 Blood Pressure 1: 120/74 Code : 8480-6 BMI: 22.1 Code : 28412-1 Heart Rate 1 : 92 bpm Height: 5'8" SpO2: 96% Weight: 143 lbs 11/09/2014 Blood Pressure 1: 100/64 Code : 8480-6 BMI: 21.6 Code : 94442-8 Heart Rate 1 : 88 bpm Height: 5'8" Weight: 140 lbs 10/23/2014 Blood Pressure 1: 138/82 Code : 8480-6 BMI: 23.6 Code : 14807-8 Heart Rate 1 : 86 bpm Height: 5'8" Weight: 153 lbs 10/16/2014 Blood Pressure 1: 128/60 Code : 8480-6 BMI: 23.3 Code : 67532-2 Heart Rate 1 : 91 bpm Height: 5'8" SpO2: 99% Weight: 151 lbs 10/09/2014 Blood Pressure 1: 120/60 Code : 8480-6 BMI: 23.0 Code : 56769-6 Heart Rate 1 : 96 bpm Height: 5'8" SpO2: 97% Weight: 149 lbs 09/14/2014 Blood Pressure 1: 132/72 Code : 8480-6 BMI: 22.1 Code : 73034-1 Heart Rate 1 : 84 bpm Height: 5'8" SpO2: 97% Weight: 143 lbs 08/11/2014 Blood Pressure 1: 134/74 Code : 8480-6 BMI: 24.1 Code : 82458-6 Heart Rate 1 : 88 bpm Height: 5'8" Weight: 156 lbs 07/12/2014 Blood Pressure 1: 122/62 Code : 8480-6 BMI: 22.7 Code : 26505-7 Heart Rate 1 : 76 bpm Height: 5'8" Weight: 147 lbs Functional Status No Functional Status data History of Present Illness Symptom Name Status Result Effective Date Notes Location-Major on the upper body 05/04/2018 None [...] Dr. Blancas in [place] and Neurosurgeon in [place] in the past neck pain Significant Medical Conditions spinal stenosis 07/12/2014 has osteoarthritis Advance Directives No Advance Directive data Encounters Encounter Performer Location Codes Date ([id number]) [id number] EST. 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 PATIENT, LEVEL III Diagnosis: Other specified intestinal infections[ICD10: A08.8] Diagnosis: Diarrhea, unspecified[ICD10: R19.7] Maricel Silva MD, [facility] CPT-4: 75533 04/21/2018 ([id number]) 16353 EST. PATIENT, LEVEL IV Diagnosis: Essential (primary) hypertension[ICD10: I10] Diagnosis: Hypo-osmolality and hyponatremia[ICD10: E87.1] Diagnosis: Chronic pain syndrome[ICD10: G89.4] Araceli Silva MD, [facility] CPT-4: 68088 03/03/2018 ([id number]) 17915 EST. PATIENT, LEVEL III Diagnosis: Cough[ICD10: R05] Diagnosis: Acute bronchitis, unspecified[ICD10: J20.9] Diagnosis: Chronic obstructive pulmonary disease, unspecified[ICD10: J44.9] Ila Silva MD, [facility] CPT-4: 95953 02/12/2018 ([id number]) 83653 EST. PATIENT, LEVEL IV Diagnosis: Chronic pain syndrome[ICD10: G89.4] Diagnosis: Cough[ICD10: R05] Diagnosis: Diarrhea, unspecified[ICD10: R19.7] Diagnosis: Generalized edema[ICD10: R60.1] Ila Silva MD, [facility] CPT-4: 49884 02/09/2018 ([id number]) 49343 EST. PATIENT, LEVEL III Diagnosis: Generalized edema[ICD10: R60.1] Diagnosis: Lymphedema, not elsewhere classified[ICD10: I89.0] Araceli Silva MD, [facility] CPT-4: 06733 01/14/2018 ([id number]) 21373 EST. PATIENT, LEVEL IV Diagnosis: Essential (primary) hypertension[ICD10: I10] Diagnosis: Generalized edema[ICD10: R60.1] Diagnosis: Chronic pain syndrome[ICD10: G89.4] Araceli Silva MD, [facility] CPT-4: 45422 12/24/2017 ([id number]) 48213 EST. PATIENT, LEVEL III Diagnosis: Lymphedema, not elsewhere classified[ICD10: I89.0] Araceli Silva MD, [facility] CPT-4: 23646 11/30/2017 ([id number]) 67030 EST. PATIENT, LEVEL III Diagnosis: Generalized edema[ICD10: R60.1] Ila Silva MD, [facility] CPT-4: 19833 11/27/2017 ([id number]) 35273 EST. PATIENT, LEVEL IV Diagnosis: Localized edema[ICD10: [...] in left shoulder[ICD10: M25.512] Araceli Silva MD, [facility] CPT-4: 51542 11/10/2017 ([id number]) 04562 EST. PATIENT, LEVEL IV Diagnosis: Localized edema[ICD10: [...] in left shoulder[ICD10: M25.512] Araceli Silva MD, [facility] CPT-4: 64399 10/29/2017 ([id number]) 33872 EST. PATIENT, LEVEL IV Diagnosis: Essential (primary) [...] Diagnosis: Localized edema[ICD10: R60.0] Araceli Silva MD, [facility] CPT- 4: 35967 10/20/2017 [id number]) [id number] EST. 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 PATIENT, LEVEL IV Diagnosis: Primary osteoarthritis, left shoulder[ICD10: M19.012] Diagnosis: Pain in left shoulder[ICD10: M25.512] Diagnosis: Lymphedema, not elsewhere classified[ICD10: I89.0] Diagnosis: Localized edema[ICD10: R60.0] Diagnosis: Chronic atrial fibrillation[ICD10: I48.2] Araceli Silva MD, [facility] CPT-4: 29701 09/15/2017 [id number]) [id number] EST. PATIENT, LEVEL III Diagnosis: Primary osteoarthritis, left shoulder[ICD10: M19.012] Diagnosis: Pain in left shoulder[ICD10: M25.512] Diagnosis: Hemarthrosis, left shoulder[ICD10: M25.012] Araceli Silva MD, [facility] CPT-4: 19412 08/31/2017 ([id number]) 60942 EST. PATIENT, LEVEL IV Diagnosis: Essential (primary) hypertension[ICD10: I10] Diagnosis: Chronic pain syndrome[ICD10: G89.4] Diagnosis: Primary osteoarthritis, right shoulder[ICD10: M19.011] Diagnosis: Primary osteoarthritis, left shoulder[ICD10: M19.012] Diagnosis: Hemarthrosis, left shoulder[ICD10: M25.012] Diagnosis: Hemarthrosis, right shoulder[ICD10: M25.011] Diagnosis: Pain in right shoulder[ICD10: M25.511] Diagnosis: Pain in left shoulder[ICD10: M25.512] Araceli Silva MD, [facility] CPT-4: 97844 08/05/2017 ([id number]) [id number] EST. PATIENT, LEVEL III Diagnosis: Localized edema[ICD10: R60.0] Araceli Silva MD, [facility] CPT- 4: 66807 07/23/2017 ([id number]) 55611 EST. 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 PATIENT, LEVEL III Diagnosis: Chronic pain syndrome[ICD10: G89.4] Araceli Silva MD, [facility] CPT-4: 97405 06/24/2017 ([id number]) 85209 EST. PATIENT, LEVEL IV Diagnosis: Rheumatoid arthritis without rheumatoid factor, right shoulder[ICD10 : M06.011] Diagnosis: Rheumatoid arthritis without rheumatoid factor, left shoulder[ICD10: M06.012] Diagnosis: Pain in right shoulder[ICD10: M25.511] Diagnosis: Pain in left shoulder[ICD10: M25.512] Diagnosis: Chronic atrial fibrillation[ICD10: I48.2] Araceli Silva MD, [facility] CPT-4: 57867 06/17/2017 [id number] EST. PATIENT, LEVEL III Diagnosis: Pain in left shoulder[ICD10: M25.512] Diagnosis: Hemarthrosis, right shoulder[ICD10: M25.011] Diagnosis: Hemarthrosis, left shoulder[ICD10: M25.012] Maricel Silva MD, [facility] CPT-4: 58666 06/01/2017 ([id number]) 40800 EST. PATIENT, LEVEL II Diagnosis: Pain in right shoulder[ICD10: M25.511] Diagnosis: Hemarthrosis, right shoulder[ICD10: M25.011] Araceli Silva MD, [facility] CPT-4: 07044 04/02/2017 ([id number]) 25466 EST. PATIENT, LEVEL IV Diagnosis: Chronic pain syndrome[ICD10: G89.4] Diagnosis: Rheumatoid arthritis without rheumatoid factor, right shoulder[ICD10 : M06.011] Diagnosis: Rheumatoid arthritis without rheumatoid factor, left shoulder[ICD10: M06.012] Araceli Silva MD, [facility] CPT-4: 78834 2017 ([id number]) 90829 EST. 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 PATIENT, LEVEL IV Diagnosis: Encounter for immunization[ICD10: Z23] Diagnosis: Chronic pain syndrome[ICD10: G89.4] Diagnosis: Essential (primary) hypertension[ICD10: I10] Araceli Silva MD, [facility] CPT-4: 03509 12/08/2016 ([id number]) 67662 EST. PATIENT, LEVEL III Diagnosis: Urge incontinence[ICD10: N39.41] Diagnosis: Chronic pain syndrome[ICD10: G89.4] Diagnosis: Lymphedema, not elsewhere classified[ICD10: I89.0] Araceli Silva MD, [facility] CPT-4: 27975 11/17/2016 48520 EST. 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 PATIENT, LEVEL IV Diagnosis: Essential (primary) hypertension[ICD10: I10] Diagnosis: Other chronic pain[ICD10: G89.29] Diagnosis: Localized edema[ICD10: R60.0] Diagnosis: Urge incontinence[ICD10: N39.41] Araceli Silva MD, [facility] CPT-4: 82135 11/05/2016 ([id number]) 49976 EST. 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 PATIENT, LEVEL III Diagnosis: Hemarthrosis, right shoulder[ICD10: M25.011] Diagnosis: Pain in right shoulder[ICD10: M25.511] Ila Silva MD, [facility] CPT-4: 24998 10/02/2016 33311 EST. PATIENT, LEVEL II Diagnosis: Low back pain[ICD10: M54.5] Diagnosis: Sacroiliitis, not elsewhere classified[ICD10: M46.1] Ila Silva MD, [facility] CPT-4: 57935 09/12/2016 ([id number]) 09335 EST. PATIENT, LEVEL III Diagnosis: Hemarthrosis, right shoulder[ICD10: M25.011] Diagnosis: Other chronic pain[ICD10: G89.29] Araceli Silva MD, [facility] CPT-4: 99911 09/08/2016 ([id number]) 60942 EST. PATIENT, LEVEL IV Diagnosis: Other iron deficiency anemias[ICD10: D50.8] Diagnosis: Vitamin D deficiency, unspecified[ICD10: E55.9] Diagnosis: Hypomagnesemia[ICD10: E83.42] Aarceli Silva MD, [facility] CPT- 4: 51180 08/26/2016 ([id number]) 43823 EST. PATIENT, LEVEL III Diagnosis: Localized edema[ICD10: R60.0] Araceli Silva MD, [facility] CPT- 4: 31930 08/18/2016 ([id number]) 94051 EST. 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 PATIENT, LEVEL IV Diagnosis: Pain in left shoulder[ICD10: M25.512] Diagnosis: Nocturia[ICD10: R35.1] Maricel Silva MD, [facility] CPT-4: 74776 07/14/2016 68770 EST. PATIENT, LEVEL III Diagnosis: Pain in left shoulder[ICD10: M25.512] Maricel Silva MD, [facility] CPT-4: 25534 07/04/2016 ([id number]) 72427 EST. 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 PATIENT, LEVEL II Diagnosis: Insect bite (nonvenomous) of right upper arm, initial encounter[ICD10 : S40.861A] Ila Silva MD, [facility] CPT-4: 39717 11/01/2015 ([id number]) 59085 EST. 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 PATIENT, LEVEL III Diagnosis: Contusion of left upper arm, subsequent encounter[ICD10: S40.022D] Araceli Silva MD, [facility] CPT-4: 30248 2015 00769 EST. PATIENT, LEVEL III Diagnosis: Cellulitis of left upper limb[ICD10: L03.114] Maricel Silva MD, [facility] CPT-4: 01756 07/18/2015 ([id number]) 85358 EST. 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 PATIENT, LEVEL IV Diagnosis: Essential (primary) hypertension[ICD10: I10] Diagnosis: Vitamin D deficiency, unspecified[ICD10: E55.9] Diagnosis: Mixed hyperlipidemia[ICD10: E78.2] Diagnosis: Age-related osteoporosis with current pathological fracture, unspecified site, sequela[ICD10: M80.00XS] Araceli Silva MD, [facility] CPT- 4: 35318 02/08/2015 ([id number]) 51009 EST. PATIENT, LEVEL IV Diagnosis: Essential (primary) hypertension[ICD10: I10] Diagnosis: Localized edema[ICD10: R60.0] Diagnosis: Primary osteoarthritis, unspecified site[ICD10: M19.91] Araceli Silva MD, [facility] CPT-4: 48821 12/11/2014 ([id number]) 10624 EST. PATIENT, LEVEL III Diagnosis: EDEMA[ICD9: 782.3] Diagnosis: ESSENTIAL HYPERTENSION[ICD9: 401.9] Araceli Silva MD, [facility] CPT-4: 16420 11/09/2014 ([id number]) 82074 EST. PATIENT, LEVEL III Diagnosis: Leg pain[ICD9: 729.5] Diagnosis: Ulcer of toe[ICD9: 707.15] Araceli Silva MD, [facility] CPT- 4: 93193 10/23/2014 ([id number]) 45786 EST. PATIENT, LEVEL III Diagnosis: Ulcer of toe[ICD9: 707.15] Araceli Silva MD, [facility] CPT- 4: 27569 10/16/2014 24834 EST. PATIENT, LEVEL II Diagnosis: Ulcer of toe[ICD9: 707.15] Ila Silva MD, [facility] CPT-4: 82028 10/09/2014 ([id number]) 95768 EST. PATIENT, LEVEL III Diagnosis: EDEMA[ICD9: 782.3] [facility] CPT-4: 58538 09/14/2014 ([id number]) 72838 EST. PATIENT, LEVEL IV Diagnosis: EDEMA[ICD9: 782.3] Diagnosis: ESSENTIAL HYPERTENSION[ICD9: 401.9] [facility] CPT-4: 49823 08/11/2014 ([id number]) OFFICE VISIT, NEW - LEVEL 4 Diagnosis: HYPERLIPIDEMIA[ICD9: 272.4] Diagnosis: VITAMIN D DEFICIENCY[ICD9: 268.9] Diagnosis: Osteoporosis[ICD9: 733.00] Diagnosis: Esophageal reflux[ICD9: 530.81] Diagnosis: Chronic pain[ICD9: 338.29] [facility] CPT- 4: 00081 07/12/2014 Plan of Care Planned Activity Notes Codes Status Date Visit Plan: Chronic Pain Syndrome - pt [...] of miralax. 05/04/2018 Appointment: Araceli Silva WPtel: [address] [place], [place] [phone] (15 min) Moderate 05/04/2018 Patient Education: Patient Medication Summary Completed 05/04/2018 Appointment: Araceli Silva WPtel: [address] [place], [place] [phone] (15 min) Moderate 05/03/2018 Visit Plan: Gastroenteritis [...] stomach pain. 04/21/2018 Appointment: Maricel Gee WPtel: [phone] [facility] (30 min) Complex 04/21/2018 Patient Education: [...] fentanyl 03/03/2018 Appointment: Araceli Silva WPtel: [phone] [facility] (15 min) Moderate 03/03/2018 Patient Education: Patient [...] - will send rx to [facility] [place] 02/12/2018 Appointment: Ila Kennedy WPtel: [phone] [phone] (30 min) Complex 02/12/2018 Patient Education: Patient Medication Summary Completed 02/12/2018 Visit Plan: Chronic Pain Syndrome - pt has chronic pain - has been maintained on current medications, has not sought out other medications , only uses PRN pain medications as directed, and understands the consequences of over-medication. Tvbfv-gkkwjtsche-unxjzmvn with lasix/metolazone -if swelling /weight increase, okay to increase metolazone to daily as directed Cough- okay for robitussin dm Diarrhea- rx for lomotil written and instructed on use-follow up in 3 weeks, sooner if needed. Call with any concerns. 02/09/2018 Appointment: Ila Kennedy WPtel: [phone] [phone] (30 min) Complex 02/09/2018 Patient Education: Patient Medication Summary Completed 02/09/2018 Appointment: [facility]el[facility] (15 min) Moderate 02/04/2018 Visit Plan: Edema/Lymphedema [...] over-medication. 01/14/2018 Appointment: Araceli Silva WPtel: [facility] (15 min) Moderate 01/14/2018 Patient Education: Patient [...] oxycodone scheduled. 12/24/2017 Appointment: [phone] (30 min) Complex 12/24/2017 Patient Education: [...] and output. 11/30/2017 Appointment: [facility]el[phone] (15 min) Moderate 11/30/2017 Patient Education: [...] over-medication. 11/10/2017 Appointment: [facility] Silva [facility]el[phone] [facility] (15 min) Moderate 11/10/2017 Patient Education: [...] hands/fingers. We will contact [facility] in [place] for paperwork regarding the scooter. 10/29/2017 Appointment: [facility] Silva [facility]Ptel[phone] [facility] (15 min) Moderate 10/29/2017 Patient Education: [...] time. 10/20/2017 Appointment: [facility] Silva [facility]el[phone] [facility] (30 min) Complex 10/20/2017 Patient Education: [...] today. 09/29/2017 Appointment: [facility] Silva [facility]Ptel: [phone] [facility] [place] (15 min) Moderate 09/29/2017 Patient [...] Completed 08/21/2017 Appointment: [facility]el[phone] [facility] (15 min) Moderate 08/20/2017 Visit Plan: Hemarthrosis shoulders - 250mL from left shoulder and 100mL from right shoulder with 1ml kenalog injected into right and left shoulders - Left and right shoulder pain and swelling, swelling into arms and left breast -pt to continue with use of compression sleeves. [id number] sep 2018 bristol 2ml kenalog 08/12/2017 Appointment: [facility] Silva [facility]el[phone] (15 min) Moderate 08/12/2017 Patient Education: [...] peripheral edema. 08/05/2017 Appointment: Araceli Silva WPtel: [facility] [place] (15 min) Moderate 08/05/2017 Patient [...] edema. 07/23/2017 Appointment: Araceli Silva WPtel: [facility] [place] (15 min) Moderate 07/23/2017 Patient Education: [...] monitor symptoms. 07/09/2017 Appointment: Araceli Silva WPtel: [facility] [place] (15 min) Moderate 07/09/2017 Patient Education: Patient Medication Summary Completed 07/09/2017 Referral: [facility] W[facility]el: Referral Initiated 07/08/2017 Visit [...] symptoms. 07/01/2017 Appointment: [facility] Silva [facility]Ptel: [phone] [facility] (15 min) Moderate 07/01/2017 Patient Education: Patient Medication Summary Completed 07/01/2017 Visit Plan: Chronic Pain Syndrome - pt has chronic pain - has been maintained on current medications, has not sought out other medications , only uses PRN pain medications as directed, and understands the consequences of over-medication. 06/24/2017 Appointment: [facility] Silva [facility]Ptel: [phone] [facility] (15 min) Moderate 06/24/2017 Patient Education: [...] edema. 06/17/2017 Appointment: [facility] Silva [facility]Ptel: [phone] [facility] [place] (30 min) Complex 06/17/2017 Patient Education: Patient Medication Summary Completed 06/17/2017 Appointment: [facility] Silva [facility]Ptel: [phone] [facility] [place] (15 min) Moderate 06/08/2017 Care Plan: Referral Order SNOMED-CT : 389354784 Pending 06/02/2017 Visit Plan: Left and right [...] edema. 06/01/2017 Appointment: Maricel Gee WPtel: [phone] [facility] [place] (30 min) Complex 06/01/2017 Patient [...] shoulder 04/02/2017 Appointment: Araceli Silva WPtel: [phone] [facility] [place] (15 min) Moderate 04/02/2017 Patient [...] upset. 03/12/2017 Appointment: Araceli Silva WPtel: [phone] [facility] [place] (15 min) Moderate 03/12/2017 Patient Education: [...] check LUANN. 01/08/2017 Appointment: Araceli Silva WPtel: [facility] (15 min) Moderate 01/08/2017 Patient Education: [...] with Remicaide. 12/08/2016 Appointment: [facility] Silva [facility]Ptel: [phone] [facility] (15 min) Moderate 12/08/2016 Patient Education: Patient [...] for now 11/17/2016 Appointment: Araceli Silva WPtel: [phone] [facility] (15 min) Moderate 11/17/2016 Patient Education: [...] of over-medication. 11/10/2016 Appointment: Maricel Gee WPtel: [facility] (30 min) Complex 11/10/2016 Patient Education: Patient [...] steroids, immunosuppression. 11/05/2016 Appointment: Araceli Silva WPtel: [facility] (15 min) Moderate 11/05/2016 Patient Education: [...] today. 10/07/2016 Appointment: Araceli Silva WPtel: [facility] [place] (15 min) Moderate 10/07/2016 Patient Education: Patient Medication Summary Completed 10/07/2016 Care Plan: Referral Order SNOMED-CT : [id number] Pending 10/07/2016 Care Plan: Referral Order SNOMED-CT : [id number] Pending 10/07/2016 Visit Plan: Hemarthrosis -right shoulder-only able to drain 5ml of bloody drainage-unable to give oral steroids due to recent GI bleed -will give kenalog injection today in the office-discussed getting OSMO patch 10/02/2016 Appointment: Ila Kennedy WPtel: [phone] [place] (30 min) Complex 10/02/2016 Patient Education: Patient Medication Summary Completed 10/02/2016 Appointment: Araceli Silva WPtel: [facility] [place] (15 min) Moderate 09/23/2016 Appointment: Araceli Silva WPtel: [address] [place], [place] [phone] [place] (15 min) Moderate 09/17/2016 Visit Plan: Sacroiliitis - back exercises discussed with the patient, pt to continue with anti-inflammatories. Pt is to call if the symptoms do not improve or if they worsen. Kenalog injection today in the office. 09/12/2016 Appointment: Ila Kennedy WPtel: [phone] [place] (15 min) Moderate 09/12/2016 Patient Education: Patient Medication Summary Completed 09/12/2016 Visit Plan: Hemarthrosis - drain right shoulder. Injection of kenalog 1mL - 40mg - bristol garcia - lot #[id number] , expires oct 2017 Chronic Pain Syndrome [...] the consequences of over-medication. 09/08/2016 Appointment: [facility] Sivla [facility]Ptel: [phone] [place] (15 min) Moderate 09/08/2016 Patient [...] magnesium level 08/26/2016 Appointment: Ar[facility] Silva WPtel: [phone] [facility] [place] (15 min) Moderate 08/26/2016 Patient [...] Completed 08/18/2016 Appointment: [facility] Silva [facility]Ptel: [phone] [facility] [place] (15 min) Moderate 08/13/2016 Appointment: Araceli Silva WPtel: [facility] (15 min) Moderate 08/06/2016 Visit Plan: Chronic [...] the daytime. 07/30/2016 Appointment: Araceli Silva WPtel: [facility] (15 min) Moderate 07/30/2016 Patient Education: Patient Medication Summary Completed 07/30/2016 Visit Plan: Left shoulder pain - improving - pt is to notify clinic if symptoms do not improve, if they worsen, or with any questions or concerns. Nocturia - will give samples, pt is to notify clinic if symptoms do not improve. 07/14/2016 Appointment: [facility]ic[facility] Gee [facility]el[facility] ([facility] Complex 07/14/2016 Patient Education: Patient [...] dyspnea. 07/04/2016 Appointment: [facility]ic[facility] Gee [facility]Ptel[facility] (30 [facility]) Complex 07/04/2016 Patient Education: [...] over- medication. 06/26/2016 Appointment: Araceli Silva WPtel: [facility] (15 min) Moderate 06/26/2016 Patient Education: [...] of over-medication. 05/28/2016 Appointment: Araceli Silva WPtel: [facility] (15 min) Moderate 05/28/2016 Patient Education: Patient Medication Summary Completed 05/28/2016 Patient Education: Hypertension Completed 05/28/2016 Appointment: Araceli Silva WPtel: [facility] (15 min) Moderate 05/12/2016 Appointment: Araceli Silva WPtel: [facility] (15 min) Moderate 04/15/2016 Appointment: Araceli Silva WPtel: [facility] (30 min) Complex 03/25/2016 Visit Plan: Hypertension [...] premarin. 03/18/2016 Appointment: [facility] Silva [facility]Ptel: [phone] [facility] (30 min) Complex 03/18/2016 Patient Education: Patient Medication Summary Completed 03/18/2016 Appointment: Araceli Silva WPtel: [facility] (15 min) Moderate 02/19/2016 Visit Plan: [...] over-medication. 01/29/2016 Appointment: Araceli Silva WPtel: [facility] (15 min) Moderate 01/29/2016 Patient Education: Patient Medication Summary Completed 01/29/2016 Visit Plan: Discussed MRI of the neck - pt is interested in doing this - however, not prior to changing her medication first to see if this helps her pain 01/01/2016 Appointment: Araceli Silva WPtel: [facility] (15 min) Moderate 01/01/2016 Patient Education: Patient Medication Summary Completed 01/01/2016 Patient Education: Hypertension Completed 01/01/2016 Appointment: Araceli Silva WPtel: [facility] [place] (15 min) Moderate 12/03/2015 Visit [...] nonhealing. 11/01/2015 Appointment: Ila Kennedy WPtel: [phone] [phone] [place] (15 min) Moderate 11/01/2015 Patient Education: Patient Medication Summary Completed 11/01/2015 Visit Plan: Chronic Pain Syndrome - pt has chronic pain - has been maintained on current medications, has not sought out other medications , only uses PRN pain medications as directed, and understands the consequences of over-medication. Muscle spasms - recommended muscle rub. 09/04/2015 Appointment: Araceli Silva WPtel: [phone] [facility] [place] (15 min) Moderate 09/04/2015 Patient Education: Patient Medication Summary Completed 09/04/2015 Visit Plan: Ecchymosis/hematoma - improving - discussed natural progression of hematomas - watchful waiting. 2015 Appointment: Araceli Silva WPtel: [phone] [facility] [place] (15 min) Moderate 2015 Patient Education: Patient Medication Summary Completed 2015 Visit Plan: Cellulitis - continue with oral antibiotics as previously directed, return to clinic as previously directed, call for acute change in symptoms, worsening redness, warmth, discharge. 07/18/2015 Appointment: [phone] [place] (30 min) Complex 07/18/2015 Patient [...] center/surgery center. 07/02/2015 Appointment: [facility] Silva [facility]Ptel: [phone] [place] (15 min) Moderate 07/02/2015 Patient [...] removal process. 04/09/2015 Appointment: Araceli Silva WPtel: [facility] (15 min) Moderate 04/09/2015 Patient Education: Patient [...] supplementation. 02/08/2015 Appointment: [facility] Silva [facility]Ptel: [phone] (15 min) Moderate 02/08/2015 Patient Education: [...] the evening. 12/11/2014 Appointment: [facility] Silva [facility]Ptel: [phone] (15 min) Moderate 12/11/2014 Patient Education: [...] - improved. 11/09/2014 Appointment: [facility] Silva [facility]Ptel: [phone] (15 min) Moderate 11/09/2014 Patient Education: Patient Medication Summary Completed 11/09/2014 Patient Education: Hypertension Completed 11/09/2014 Visit Plan: Leg pain/cellulitis of leg - start on the doxycycline twice daily - take this x 2 weeks, if the symptoms in your leg/ thigh are not completely resolved, there is a refill that is available. start on a probiotic one pill daily ([employer] or [employer]) this will help prevent the development of a bad type of diarrhea that can occur when taking antibiotics. Ulcer of toe - improving. 10/23/2014 Appointment: Araceli Silva WPtel: [facility] [id number] (15 min) Moderate 10/23/2014 Patient Education: Patient Medication Summary Completed 10/23/2014 Visit Plan: Ulcer - keep lesion covered, antibiotic ointment to be used, monitor - call if redness increases or starts streaking up the foot. 10/16/2014 Appointment: Araceli Silva WPtel: [facility] (15 min) Moderate 10/16/2014 Patient Education: Patient [...] edema. 09/14/2014 Appointment: Araceli Silva WPtel: [phone] [id number] Follow up 09/14/2014 Patient Education: Patient Medication [...] over- medication. 07/12/2014 Appointment: Araceli Silva WPtel: [address] [place], [place] [id number] [place] ([place]) New Patient 07/12/2014 Patient Education: Patient Medication Summary Completed 07/12/2014 Patient Education: Hypertension Completed 07/12/2014 Referral: Dr Virgen Referral Completed Referral: External, Ordering Provider Referral Completed Referral: [facility] WPtel: Referral Initiated Instructions Comment [...] despite current pain medications, discussed with Dr. Sliva - will increase fentanyl patch dose in [...] Injection of kenalog 1mL - 40mg - [employer] - lot #[id number] , expires oct 2017 Chronic Pain Syndrome [...] start on a probiotic one pill daily ([facility] or [employer]) this will help prevent the development of a bad type of diarrhea that can occur when taking antibiotics. . Leg pain/cellulitis of leg - start on the doxycycline twice daily - take this x 2 weeks, if the symptoms in your leg/thigh are not completely resolved, there is a refill that is available. start on a probiotic one pill daily ([employer] [facility] or [employer]) this will help prevent the development of [...] hands/fingers. We will contact [facility] in [place] for paperwork regarding the scooter. . Hypertension [...] of breath -will send rx to [facility] next mammogram will be due in Oct. [...] to continue with use of compression sleeves. [id number] sep 2018 bristol 2ml kenalog . Edema/Lymphedema [...] directed, and understands the consequences of over-medication. Jiydj-[id number]-[id number] with lasix/metolazone -if swelling/weight increase, okay to [...] office. two old goats muscle rub from [employer] [facility]. . Chronic Pain Syndrome [...]
--- OUTSIDE RECORDS SUMMARY | 2018-06-03 16:19 | XMS REPORT | CCD ---
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 Role Phone PP Unavailable CCM Unavailable Summary Purpose Interface Exchange Insurance Providers Payer name Policy type / Coverage type Covered green party ID Effective Begin Date Effective End Date [employer] [employer] Medicare Part B [id number] 2017 Unknown AET[employer] Medicare Part B [id number] Unknown Family history Father Diagnosis Age At [...] Unknown Retired 07/12/[address]: 5604107 Quit over 10 years ago 1967 07/12/2014 [...] ICD-9: 338.4 ICD-10: G89.4 Active 10/07/2016 Unknown Diarrhea, unspecified ICD-9: 787.91 ICD-10: R19.7 [...] syndrome ICD-9: 338.4 ICD-10: G89.4 10/07/2016 Active Diarrhea, unspecified ICD-9: 787.91 ICD-10: R19.7 [...] Start Date Stop Date Status Fill Instructions ondansetron 4 mg disintegrating tablet RxNorm: 745973 1 Tablet(s) PO TID as needed nausea and vomitting 04/21/2018 Active promethazine 25 mg tablet RxNorm: 896722 1 Tablet(s) PO TID as needed nausea and vomitting 04/21/2018 05/20/2018 Active promethazine 25 mg/mL injection solution RxNorm: 123293 Milliliter(s) Inj 04/21/2018 04/21/2018 Inactive ondansetron 4 mg disintegrating tablet RxNorm: 336264 1 Tablet(s) PO TID as needed nausea and vomitting 04/21/2018 Inactive promethazine 25 mg tablet RxNorm: 553471 1 Tablet(s) PO TID as needed nausea and vomitting 04/21/2018 04/25/2018 Inactive metolazone 10 mg tablet RxNorm: 667325 1 Tablet(s) PO every other day uncontrolled edema 04/08/2018 12/03/2018 Active fentanyl 100 mcg/hr transdermal patch RxNorm: 415664 1 Patch TD Q72H use with 25mcg/hr patch 04/07/2018 05/06/2018 Active fentanyl 25 mcg/hr transdermal patch RxNorm: 744948 1 Patch TD Q72H use with 100mcg patch for a total of 125mcg daily 04/07/2018 05/06/2018 Active potassium chloride ER 10 mEq tablet,extended release(part/ cryst) RxNorm: 7882814 2 Tablet(s) PO TID 03/30/2018 07/27/2018 Active oxycodone 30 mg tablet RxNorm: 6929173 1/2 Tablet(s) PO Q6 05/15/2018 Active fentanyl 25 mcg/hr transdermal patch RxNorm: 289603 1 Patch TD Q72H use with 100mcg patch for a total of 125mcg daily 03/17/2018 04/06/2018 Inactive Lasix 40 mg tablet RxNorm: 770043 Tablet(s) PO TAKE 1 TABLET BY MOUTH TWICE DAILY 03/04/2018 No Stop Date Active fentanyl 100 mcg/hr transdermal patch RxNorm: 646134 1 Patch TD Q72H use with 25mcg/hr patch 03/03/2018 04/01/2018 Inactive potassium chloride ER 10 mEq capsule,extended release RxNorm: 552211 2 Capsule(s) PO TID 03/03/2018 03/29/2018 Inactive albuterol sulfate 2.5 mg/3 mL (0.083 %) solution for nebulization RxNorm: 647314 3 Milliliter(s) INH Q4 PRN 02/18/2018 No Stop Date Active cefdinir 300 mg capsule RxNorm: 197949 1 Capsule(s) PO BID 02/24/2018 Inactive cefdinir 300 mg capsule RxNorm: 626691 1 Capsule(s) PO BID 02/17/2018 Inactive Flonase Allergy Relief 50 mcg/actuation nasal spray, suspension RxNorm: 8963098 2 [place] NASAL daily 02/12/20182017 Inactive Zithromax Z-Humberto 250 mg tablet RxNorm: 544693 1 Tablet(s) PO UD 02/12/2018 02/16/2018 Inactive Lomotil 2.5 mg-0.025 mg tablet RxNorm: 5919781 1 Tablet(s) PO BID PRN 02/09/2018 No Stop Date Active fentanyl 25 mcg/hr transdermal patch RxNorm: 612207 1 Patch TD Q72H use with 100mcg patch for a total of 125mcg daily 02/09/2018 03/10/2018 Inactive oxycodone 30 mg tablet RxNorm: 6668177 1/2 Tablet(s) PO Q6 03/14/2018 Inactive metolazone 10 mg tablet RxNorm: 223867 1 Tablet(s) PO QAM as needed uncontrolled edema 01/14/2018 03/14/2018 Inactive fentanyl 100 mcg/hr transdermal patch RxNorm: 362893 1 Patch TD Q72H use with 25mcg/hr patch 01/14/2018 02/12/2018 Inactive fentanyl 25 mcg/hr transdermal patch RxNorm: 115841 1 Patch TD Q72H use with 100mcg patch for a total of 125mcg daily 01/14/2018 02/08/2018 Inactive metolazone 10 mg tablet RxNorm: 894242 1 Tablet(s) PO every other day as needed uncontrolled edema 01/07/2018 01/13/2018 Inactive metolazone 10 mg tablet RxNorm: 538190 1 Tablet(s) PO every other day as needed uncontrolled edema 01/07/2018 01/06/2018 Inactive Cipro 500 mg tablet RxNorm: 318280 1 Tablet(s) PO BID 201701/05/2018 Inactive Cipro 500 mg tablet RxNorm: 520439 1 Tablet(s) PO BID 201701/15/2018 Inactive Cardizem CD 360 mg capsule,extended release RxNorm: 508929 1 Capsule(s) PO daily 01/05/2018 05/04/2018 Active potassium chloride ER 10 mEq tablet,extended release(part/ cryst) RxNorm: 5263580 2 Capsule(s) PO TID when taking lasix 01/05/2018 05/04/2018 Active potassium chloride ER 10 mEq capsule,extended release RxNorm: 124262 Capsule(s) TAKE 1 CAPSULE BY MOUTH TWICE DAILY WHEN TAKING LASIX (FUROSEMIDE) 11/27/2017 03/02/2018 Inactive potassium chloride ER 10 mEq capsule,extended release RxNorm: 685884 Capsule(s) TAKE 1 CAPSULE BY MOUTH TWICE DAILY WHEN TAKING LASIX (FUROSEMIDE) 11/27/2017 11/26/2017 Inactive fentanyl 25 mcg/hr transdermal patch RxNorm: 139633 1 Patch TD Q72H use with 100mcg patch for a total of 125mcg daily 11/27/2017 12/26/2017 Inactive bumetanide 0.5 mg tablet RxNorm: 549628 1 Tablet(s) PO daily 12/23/2017 Inactive in the afternoon x 3 days then as needed per Dr Silva fentanyl 100 mcg/hr transdermal patch RxNorm: 574303 1 Patch TD Q72H use with 25mcg/hr patch 11/27/2017 12/26/2017 Inactive oxycodone 30 mg tablet RxNorm: 4825142 1/2 Tablet(s) PO Q6 12/27/2017 Inactive fentanyl 100 mcg/hr transdermal patch RxNorm: 516243 1 Patch TD Q72H use with 25mcg/hr patch 10/29/2017 11/26/2017 Inactive Lasix 20 mg tablet RxNorm: 057195 TAKE 1 TABLET BY MOUTH TWICE DAILY 10/29/2017 03/03/2018 Inactive fentanyl 25 mcg/hr transdermal patch RxNorm: 670175 1 Patch TD Q72H use with 100mcg patch for a total of 125mcg daily 10/29/2017 11/26/2017 Inactive pantoprazole 40 mg tablet,delayed release RxNorm: 362405 Tablet(s) Take 1 tablet by mouth daily 10/21/2017 04/18/2018 Inactive - Ref: [id number] potassium chloride ER 10 mEq capsule,extended release RxNorm: 584280 TAKE 1 CAPSULE BY MOUTH TWICE DAILY WHEN TAKING LASIX (FUROSEMIDE) 10/09/2017 11/26/2017 Inactive fentanyl 25 mcg/hr transdermal patch RxNorm: 536201 1 Patch TD Q72H use with 100mcg patch for a total of 125mcg daily 10/01/2017 10/28/2017 Inactive fentanyl 100 mcg/hr transdermal patch RxNorm: 791474 1 Patch TD Q72H use with 25mcg/hr patch 10/01/2017 10/28/2017 Inactive potassium chloride ER 10 mEq tablet,extended release(part/ cryst) RxNorm: 1879739 1 Capsule(s) PO BID when taking lasix 09/22/2017 01/04/2018 Inactive fentanyl 100 mcg/hr transdermal patch RxNorm: 184681 1 Patch TD Q72H use with 25mcg/hr patch 08/31/2017 09/29/2017 Inactive Kenalog 40 mg/mL suspension for injection RxNorm: 5856500 1 Milliliter(s) Inj 08/31/2017 08/31/2017 Inactive fentanyl 25 mcg/hr transdermal patch RxNorm: 349237 1 Patch TD Q72H use with 100mcg patch for a total of 125mcg daily 08/31/2017 09/29/2017 Inactive oxycodone 30 mg tablet RxNorm: 0546813 1/2 Tablet(s) PO Q6 04/201710/28/2017 Inactive cyanocobalamin (vit B-12) 1,000 mcg/mL injection solution RxNorm: 913098 1 Milliliter(s) Inj monthly 08/21/201708/15 Active please provide her with syringe/needle for injection cyanocobalamin (vit B-12) 1,000 mcg/mL injection solution RxNorm: 759584 1 Milliliter(s) Inj monthly 08/21/201708/20 Inactive please provide her with syringe/needle for injection Kenalog 40 mg/mL suspension for injection RxNorm: 5357613 2 Milliliter(s) Inj 1mL in each shoulder 08/21/2017 08/21/2017 Inactive cyanocobalamin (vit B-12) 1,000 mcg/mL injection solution RxNorm: 100055 1 Milliliter(s) Inj monthly 08/21/201708/20 Inactive please provide her with syringe/needle for injection Kenalog 40 mg/mL suspension for injection RxNorm: 8582865 2 Milliliter(s) Inj UD 08/12/2017 08/12/2017 Inactive fentanyl 25 mcg/hr transdermal patch RxNorm: 476412 1 Patch TD Q72H use with 100mcg patch for a total of 125mcg daily 08/05/2017 08/30/2017 Inactive fentanyl 100 mcg/hr transdermal patch RxNorm: 311304 1 Patch TD Q72H use with 25mcg/hr patch 08/05/2017 08/30/2017 Inactive Kenalog 40 mg/mL suspension for injection RxNorm: 8021726 2 Milliliter(s) Inj 1mL per shoulder 08/05/2017 08/05/2017 Inactive clindamycin HCl 150 mg capsule RxNorm: 486541 1 Capsule(s) PO QID Dr Shultz prescribed 07/23/2017 07/29/2017 Inactive prednisone 5 mg tablet RxNorm: 900184 1 Tablet(s) PO daily 11/201707/03/2018 Active fentanyl 25 mcg/hr transdermal patch RxNorm: 157427 1 Patch TD Q72H use with 100mcg patch for a total of 125mcg daily 07/01/2017 07/30/2017 Inactive Lasix 20 mg tablet RxNorm: 386305 1 Tablet(s) PO BID 201710/28/2017 Inactive fentanyl 100 mcg/hr transdermal patch RxNorm: 512306 1 Patch TD Q72H use with 25mcg/hr patch 07/01/2017 07/30/2017 Inactive potassium chloride ER 10 mEq capsule,extended release RxNorm: 055396 1 Capsule(s) PO BID when taking lasix 07/01/20172017 Inactive oxycodone 30 mg tablet RxNorm: 2213735 1/2 Tablet(s) PO Q6 08/22/2017 Inactive fentanyl 100 mcg/hr transdermal patch RxNorm: 316792 1 Patch TD Q72H use with 25mcg/hr patch 05/07/2017 06/05/2017 Inactive fentanyl 25 mcg/hr transdermal patch RxNorm: 514971 1 Patch TD Q72H use with 100mcg patch for a total of 125mcg daily 05/07/2017 06/05/2017 Inactive fentanyl 100 mcg/hr transdermal patch RxNorm: 706385 1 Patch TD Q72H 04/08/2017 05/06/2017 Inactive fentanyl 25 mcg/hr transdermal patch RxNorm: 579241 1 Patch TD Q72H use with 100mcg patch for a total of 125mcg daily 04/08/2017 05/06/2017 Inactive Kenalog 40 mg/mL suspension for injection RxNorm: 2622297 1.5 Milliliter(s) Inj 04/02/2017 04/02/2017 Inactive fentanyl 100 mcg/hr transdermal patch RxNorm: 330942 1 Patch TD Q72H 03/12/2017 04/07/2017 Inactive fentanyl 25 mcg/hr transdermal patch RxNorm: 063660 1 Patch TD Q72H use with 100mcg patch for a total of 125mcg daily 03/12/2017 04/07/2017 Inactive oxycodone 30 mg tablet RxNorm: 4122246 1/2 Tablet(s) PO Q6 09/201704/07/2017 Inactive cyanocobalamin (vit B-12) 1,000 mcg/mL injection syringe RxNorm: 574161 1 Milliliter(s) Inj monthly 02/16/2017 No Stop Date Active please provide with supplys needed for injection fentanyl 100 mcg/hr transdermal patch RxNorm: 021292 1 Patch TD Q72H 02/06/2017 03/07/2017 Inactive Myrbetriq 50 mg tablet,extended release RxNorm: 1968600 1 Tablet(s) PO QPM 12/11/2016 07/22/2017 Inactive oxycodone 30 mg tablet RxNorm: 3567679 1/2 Tablet(s) PO Q6 10/201601/06/2017 Inactive naproxen 500 mg tablet RxNorm: 328977 1 Tablet(s) PO BID Take 1 tablet by mouth two times daily as needed 12/08/201607/08 Inactive - First Attempt Ref: [id number] Myrbetriq 50 mg tablet,extended release RxNorm: 9741284 1 Tablet(s) PO QPM 11/17/2016 12/10/2016 Inactive fentanyl 100 mcg/hr transdermal patch RxNorm: 324201 1 Patch TD Q72H 11/12/2016 12/11/2016 Inactive Vesicare 10 mg tablet RxNorm: 929768 1 Tablet(s) PO QPM 201611/18/2016 Inactive oxycodone 10 mg tablet RxNorm: 0902500 1-2 Tablet(s) PO Q4 PRN as needed to take between 30mg dose if needed for extra pain control 201612/07/2016 Inactive fentanyl 75 mcg/hr transdermal patch RxNorm: 136543 1 TD Q72H 10/22/2016 11/10/2016 Inactive oxycodone 10 mg tablet RxNorm: 3858696 1-2 Tablet(s) PO Q4 PRN as needed to take between 30mg dose if needed for extra pain control 201611/04/2016 Inactive Kenalog 40 mg/mL suspension for injection RxNorm: 2429777 1 Milliliter(s) Inj 10/02/2016 10/02/2016 Inactive Kenalog 40 mg/mL suspension for injection RxNorm: 1506195 1 Milliliter(s) Inj 09/12/2016 09/12/2016 Inactive cyclobenzaprine 5 mg tablet RxNorm: 634703 1 Tablet(s) PO Q8 as needed muscle spasms 09/11/2016 07/22/2017 Inactive prednisone 10 mg tablets in a dose pack RxNorm: 658456 1 Tablet(s) PO UD 09/09/2016 06/23/2017 Inactive potassium chloride ER 10 mEq capsule,extended release RxNorm: 334171 1 Capsule(s) PO BID as needed when taking lasix 08/26/2016 06/30/2017 Inactive Lasix 20 mg tablet RxNorm: 283706 1 Tablet(s) PO BID daily x 10 days then as needed edema 08/26/2016 12/23/2016 Inactive naproxen 500 mg tablet RxNorm: 186148 Take 1 tablet by mouth two times daily as needed 08/18/2016 11/15/2016 Inactive - First Attempt Ref: [id number] Lasix 20 mg tablet RxNorm: 702518 1 Tablet(s) PO QAM daily x 10 days then as needed edema 08/18/2016 08/25/2016 Inactive Vesicare 5 mg tablet RxNorm: 288072 1 Tablet(s) PO QPM 201611/04/2016 Inactive potassium chloride ER 10 mEq capsule,extended release RxNorm: 472814 1 Capsule(s) PO QAM as needed when taking lasix 08/18/2016 08/25/2016 Inactive Myrbetriq 25 mg tablet,extended release RxNorm: 1459805 1 Tablet(s) PO QHS 07/14/2016 07/29/2016 Inactive pantoprazole 40 mg tablet,delayed release RxNorm: 491436 Take 1 tablet by mouth daily 06/30/2016 12/26/2016 Inactive - Ref: [id number] Embeda 20 mg-0.8 mg capsule, extend release, oral only RxNorm: 343145 1 Capsule(s ) PO daily 06/04/2016 06/03/2016 Inactive Embeda 20 mg-0.8 mg capsule, extend release, oral only RxNorm: 202493 1 Capsule(s ) PO daily 06/04/2016 07/01/2016 Inactive oxycodone 10 mg tablet RxNorm: 5897405 1 Tablet(s) PO QID as needed to take between 30mg dose if needed for extra pain control 201606/10/2016 Inactive oxycodone 30 mg tablet RxNorm: 1107830 1 Tablet(s) PO Q6 201611/04/2016 Inactive cyanocobalamin (vit B-12) 1,000 mcg/mL injection solution RxNorm: 808082 1 Milliliter(s) Inj monthly 02/22/201602/15 Inactive she also needs syringes/ needles for this solution QS oxycodone 30 mg tablet RxNorm: 7593954 1 Tablet(s) PO Q6 201503/19/2016 Inactive oxycodone 10 mg tablet RxNorm: 0775821 1 Tablet(s) PO QID as needed to take between 30mg dose if needed for extra pain control 201503/19/2016 Inactive oxycodone 10 mg tablet RxNorm: 4062208 1 Tablet(s) PO QID as needed to take between 30mg dose if needed for extra pain control 201502/18/2016 Inactive oxycodone 30 mg tablet RxNorm: 6995094 1 Tablet(s) PO Q6 201502/18/2016 Inactive pantoprazole 40 mg tablet,delayed release RxNorm: 659715 Take 1 tablet by mouth daily 01/22/2016 06/29/2016 Inactive - First Attempt Ref: [id number] oxycodone 30 mg tablet RxNorm: 9342323 1 Tablet(s) PO Q6 201501/28/2016 Inactive oxycodone 10 mg tablet RxNorm: 3160024 1 Tablet(s) PO QID as needed take between 20mg dose if needed for extra pain control 11/07/2015 12/06/2015 Inactive oxycodone 20 mg tablet RxNorm: 2216035 1 Tablet(s) PO Q6 as needed 11/07/2015 12/31/2015 Inactive doxycycline hyclate 100 mg tablet RxNorm: 339229 1 Tablet(s) PO BID 11/01/2015 11/10/2015 Inactive potassium chloride ER 10 mEq capsule,extended release RxNorm: 099229 1 Capsule(s) PO TIW as needed when taking lasix 09/04/2015 08/17/2016 Inactive Voltaren 1 % topical gel RxNorm: 406480 2 Gram(s) TOP QID 08/2909/03/2015 Inactive pa approved Voltaren 1 % topical gel RxNorm: 715201 2 Gram(s) TOP QID 08/0808/29/2015 Inactive naproxen 500 mg tablet RxNorm: 386550 1 Tablet(s) PO BID 201508/17/2016 Inactive naproxen 500 mg tablet RxNorm: 920858 1 Tablet(s) PO BID 201508/08/2015 Inactive doxycycline hyclate 100 mg tablet RxNorm: 044747 1 Tablet(s) PO BID do not take calcium/vitamin d while on antibiotic 07/18/2015 07/31/2015 Inactive Vitamin D2 50,000 unit capsule RxNorm: 195988 1 Capsule(s) PO QW 07/02/2015 11/18/2015 Inactive Premarin 0.3 mg tablet RxNorm: 027883 1 Tablet(s) PO daily 12/201505/09/2015 Inactive Premarin 0.3 mg tablet RxNorm: 956528 1 Tablet(s) PO daily 12/201503/17/2016 Inactive simvastatin 40 mg tablet RxNorm: 603040 1 Tablet(s) PO daily 03/17/2016 Inactive spironolactone 25 mg tablet RxNorm: 500762 TAKE ONE TABLET BY MOUTH DAILY 05/07/2015 05/27/2016 Inactive potassium chloride ER 10 mEq capsule,extended release RxNorm: 022848 1 Capsule(s) PO TIW as needed when taking lasix 04/17/2015 09/03/2015 Inactive alendronate 70 mg tablet RxNorm: 483119 1 Tablet(s) PO weekly QW 04/17/2015 07/01/2015 Inactive Vitamin D2 50,000 unit capsule RxNorm: 162421 1 Capsule(s) PO QW 03/30/2015 06/27/2015 Inactive Vitamin D2 50,000 unit capsule RxNorm: 840481 1 Capsule(s) PO QW 03/21/2015 03/29/2015 Inactive cyanocobalamin (vit B-12) 1,000 mcg/mL injection solution RxNorm: 889605 1 Milliliter(s) Inj monthly 03/19/201502/20 Inactive cyanocobalamin (vit B-12) 1,000 mcg/mL injection solution RxNorm: 800686 1 Milliliter(s) Inj monthly 03/16/201503/18 Inactive cyanocobalamin (vit B-12) 1,000 mcg/mL injection solution RxNorm: 087825 1 Milliliter(s) Inj monthly 03/16/201503/15 Inactive pantoprazole 40 mg tablet,delayed release RxNorm: 322106 1 Tablet(s) PO daily 03/05/2015 01/21/2016 Inactive Lasix 20 mg tablet RxNorm: 172641 1 Tablet(s) PO TIW as needed edema 02/08/2015 02/02/2016 Inactive oxycodone 10 mg tablet RxNorm: 4636859 1 Tablet(s) PO QID as needed take between 20mg dose if needed for extra pain control 11/09/2014 12/08/2014 Inactive oxycodone 20 mg tablet RxNorm: 6820886 1 Tablet(s) PO Q6 as needed 10/25/2014 11/06/2015 Inactive doxycycline hyclate 100 mg tablet RxNorm: 447733 1 Tablet(s) PO BID 10/23/2014 11/19/2014 Inactive Cipro 500 mg tablet RxNorm: 222637 1 Tablet(s) PO BID 201410/16/2014 Inactive Cipro 500 mg tablet RxNorm: 551697 1 Tablet(s) PO BID 201410/09/2014 Inactive oxycodone 20 mg tablet RxNorm: 8004993 1 Tablet(s) PO Q6 as needed 09/25/2014 10/24/2014 Inactive Lasix 20 mg tablet RxNorm: 516623 1 Tablet(s) PO TIW as needed edema 09/14/2014 01/11/2015 Inactive potassium chloride ER 10 mEq capsule,extended release RxNorm: 461295 1 Capsule(s) PO TIW as needed when taking lasix 09/14/2014 01/11/2015 Inactive doxycycline hyclate 100 mg tablet RxNorm: 299620 1 Tablet(s) PO BID 09/05/2014 09/14/2014 Inactive doxycycline hyclate 100 mg tablet RxNorm: 644446 1 Tablet(s) PO BID 09/05/2014 09/04/2014 Inactive oxycodone 20 mg tablet RxNorm: 4687676 1 Tablet(s) PO Q6 as needed 08/29/2014 09/24/2014 Inactive spironolactone 25 mg tablet RxNorm: 923181 1 Tablet(s) PO daily 08/11/2014 03/08/2015 Inactive oxycodone 20 mg tablet RxNorm: 7956131 1 Tablet(s) PO Q6 as needed 08/02/2014 08/28/2014 Inactive Vitamin D3 2,000 unit tablet RxNorm: 067141 1 Tablet(s) PO daily 07/14/2014 No Stop Date Active Vitamin D2 50,000 unit capsule RxNorm: 687390 1 Capsule(s) PO QW 07/14/2014 10/11/2014 Inactive Vitamin D2 50,000 unit capsule RxNorm: 640469 1 Capsule(s) PO QW 07/14/2014 07/13/2014 Inactive Prolia 60 mg/mL subcutaneous syringe RxNorm: 182643 Milliliter(s) SQ EVERY 6 MONTHS No Start Date Active Carafate 1 gram tablet RxNorm: 301522 1 Tablet(s) PO BID No Start Date Active Miralax oral RxNorm: 676416 oral No Start Date Active Stool Softener oral RxNorm: 03273 oral No Start Date Active Calcium + Vitamin D oral RxNorm: 4018 oral No Start Date Active naproxen 500 mg tablet RxNorm: 736853 1 Tablet(s) PO BID No Start Date 08/05/2015 Inactive albuterol sulfate 2.5 mg/3 mL (0.083 %) solution for nebulization RxNorm: 128278 3 Milliliter(s) INH Q4 PRN No Start Date 02/17/2018 Inactive oxycodone 20 mg tablet RxNorm: 1494012 1 Tablet(s) PO Q6 as needed No Start Date 08/01/2014 Inactive aspirin 81 mg tablet RxNorm: 907680 1 Tablet(s) PO daily No Start Date 07/22/2017 Inactive simvastatin 40 mg tablet RxNorm: 738797 1 Tablet(s) PO daily No Start Date 05/09/2015 Inactive cyanocobalamin (vit B-12) 1,000 mcg/mL injection syringe RxNorm: 326501 1 Inj monthly No Start Date 02/15/2017 Inactive Reglan 10 mg tablet RxNorm: 343147 1 Tablet(s) PO as needed No Start Date 07/29/2016 Inactive alendronate 70 mg tablet RxNorm: 848859 1 Tablet(s) PO weekly No Start Date 04/16/2015 Inactive Protonix 40 mg tablet,delayed release RxNorm: 336998 1 Tablet(s) PO daily No Start Date 03/04/2015 Inactive cyclobenzaprine 5 mg tablet RxNorm: 055687 1 Tablet(s) PO Q8 as needed muscle spasms No Start Date 09/10/2016 Inactive Vitamin D3 1,000 unit capsule RxNorm: 228979 1 Capsule(s) PO daily No Start Date 07/13/2014 Inactive Cardizem CD 360 mg capsule,extended release RxNorm: 354855 1 Capsule(s) PO daily No Start Date 01/04/2018 Inactive prednisone 10 mg tablets in a dose pack RxNorm: 675563 1 Tablet(s) PO UD No Start Date 09/08/2016 Inactive Medication Administered Medication Codes Instructions Start Date Status promethazine 25 mg/mL injection solution RxNorm: 084705 Milliliter 04/21/2018 No longer Active Kenalog 40 mg/mL suspension for injection RxNorm: 7758243 1Milliliter 08/31/2017 No longer Active Kenalog 40 mg/mL suspension for injection RxNorm: 2373577 2Milliliter 08/21/2017 No longer Active Kenalog 40 mg/mL suspension for injection RxNorm: 7069379 2MilliliterUD 08/12/2017 No longer Active Kenalog 40 mg/mL suspension for injection RxNorm: 6015226 2Milliliter 08/05/2017 No longer Active Kenalog 40 mg/mL suspension for injection RxNorm: 7680289 1.5Milliliter 04/02/2017 No longer Active Kenalog 40 mg/mL suspension for injection RxNorm: 8188004 1Milliliter 10/02/2016 No longer Active Kenalog 40 mg/mL suspension for injection RxNorm: 4739874 1Milliliter 09/12/2016 No longer Active Immunizations Vaccine Codes Date Status Influenza CVX: 141 12/03/2017 completed Influenza CVX: 141 12/08/2016 completed Influenza CVX: 141 11/19/2015 completed Influenza CVX: 141 01/10/2015 completed Pneumococcal (Adult) CVX: 133 12/11/2014 completed Pneumococcal (Adult) CVX: 133 12/11/2014 completed Assessments Condition Codes Effective Dates Diarrhea, unspecified ICD-10: R19.7 ICD-9: 787.91 04/21/2018 Other specified intestinal infections ICD-10: A08.8 ICD-9: 009.0 04/21/2018 Essential (primary) hypertension ICD-10: I10 ICD-9: 401.1 03/03/2018 Hypo-osmolality and hyponatremia ICD-10: E87.1 ICD-9: 276.1 03/03/2018 Chronic pain syndrome ICD-10: G89.4 ICD-9: 338.4 03/03/2018 Cough ICD-10: R05 ICD-9: 786.2 02/12/2018 [...] Visit Reason For Visit Effective Dates Notes nausea 04/21/2018 vomiting diarrhea 03/03/2018 cough 02/12/2018 [...] Item Item Code Result Date Comp Metabolic Dxj524 NA 134 mEq/L 03/03/2018 Comp Metabolic Cug105 K 3.3 mEq/L 03/03/2018 Comp Metabolic Ydv330 CL 90 mEq/L 03/03/2018 Comp Metabolic Lgu153 CO2 33.0 mEq/L 03/03/2018 Comp Metabolic Vgy934 ANION GAP 14 03/03/2018 Comp Metabolic Zsx189 GLUCOSE 146 mg/dL 03/03/2018 Comp Metabolic Tar631 Creat 1.7 mg/dL 03/03/2018 Comp Metabolic Byu777 eGFR 31 ml/min/1.73m2 03/03/2018 Comp Metabolic Vmp609 BUN 74 mg/dL 03/03/2018 Comp Metabolic Bed359 B/C Ratio 43.8 Ratio 03/03/2018 Comp Metabolic Ryb674 CALCIUM 8.6 mg/dL 03/03/2018 Comp Metabolic Zeo538 ALK PHOS 70 U/L 03/03/2018 Comp Metabolic Fwl157 AST(SGOT) 14 U/L 03/03/2018 Comp Metabolic Ami301 ALT(SGPT) 9 U/L 03/03/2018 Comp Metabolic Iux219 BILI T 0.6 mg/dL 03/03/2018 Comp Metabolic Bht192 ALBUMIN 3.8 g/dL 03/03/2018 Comp Metabolic Xio301 TPRO 6.7 g/dL 03/03/2018 Comp Metabolic Apt604 GLOB 2.9 g/dL 03/03/2018 Comp Metabolic Hth636 A/G Ratio 1.3 Ratio 03/03/2018 Comp Metabolic Mmb257 Osmo 293 mOsmo 03/03/2018 Cbc With Differential Ord2 WBC 8.26 K/ul 03/03/2018 Cbc With Differential Ord2 RBC 3.58 M/ul 03/03/2018 Cbc With Differential Ord2 HGB 10.7 g/dl 03/03/2018 Cbc With Differential Ord2 HCT 33.7 % 03/03/2018 Cbc With Differential Ord2 Neut% 71.1 % 03/03/2018 Cbc With Differential Ord2 Lymph% 16.7 % 03/03/2018 Cbc With Differential Ord2 MCV 94.1 fl 03/03/2018 Cbc With Differential Ord2 MCH 29.9 pg 03/03/2018 Cbc With Differential Ord2 [place]% 11.1 % 03/03/2018 Cbc With Differential Ord2 Eos% 0.4 % 03/03/2018 Cbc With Differential Ord2 MCHC 31.8 pg 03/03/2018 Cbc With Differential Ord2 Baso% 0.7 % 03/03/2018 Cbc With Differential Ord2 PLT 341 K/ul 03/03/2018 Cbc With Differential Ord2 Neut ABS# 5.87 K/ul 03/03/2018 Cbc With Differential Ord2 RDW 16.4 % 03/03/2018 Cbc With Differential Ord2 Lymph ABS# 1.38 K/ul 03/03/2018 Cbc With Differential Ord2 [place] ABS# 0.9 K/ul 03/03/2018 Cbc With Differential Ord2 Eos ABS# 0.0 K/ul 03/03/2018 Cbc With Differential Ord2 Baso ABS# 0.1 K/ul 03/03/2018 Tibc Ord40 Iron 75 ug/dl 10/22/2017 Tibc Ord40 UIBC 270 ug/dL 10/22/2017 Tibc Ord40 TIBC 345 ug/dL 10/22/2017 Tibc Ord40 Fe-%Sat 21.7 % 10/22/2017 Prealbumin 339817 PREALBUMIN 33 mg/dL 10/21/2017 Comp Metabolic Bbg162 NA 134 mEq/L 10/20/2017 Comp Metabolic Piy972 K 3.7 mEq/L 10/20/2017 Comp Metabolic Mce765 CL 93 mEq/L 10/20/2017 Comp Metabolic Jzd145 CO2 29.0 mEq/L 10/20/2017 Comp Metabolic Ccd992 ANION GAP 16 10/20/2017 Comp Metabolic Odu460 GLUCOSE 115 mg/dL 10/20/2017 Comp Metabolic Npk698 Creat 0.8 mg/dL 10/20/2017 Comp Metabolic Jqh558 eGFR 73 ml/min/1.73m2 10/20/2017 Comp Metabolic Aks760 BUN 46 mg/dL 10/20/2017 Comp Metabolic Ipm348 B/C Ratio 57.5 Ratio 10/20/2017 Comp Metabolic Eus642 CALCIUM 8.7 mg/dL 10/20/2017 Comp Metabolic Rgw239 ALK PHOS 56 U/L 10/20/2017 Comp Metabolic Rcv014 AST(SGOT) 19 U/L 10/20/2017 Comp Metabolic Fcz745 ALT(SGPT) 23 U/L 10/20/2017 Comp Metabolic Uky093 BILI T 0.6 mg/dL 10/20/2017 Comp Metabolic Lcj716 ALBUMIN 4.0 g/dL 10/20/2017 Comp Metabolic Gml369 TPRO 6.6 g/dL 10/20/2017 Comp Metabolic Jge122 GLOB 2.7 g/dL 10/20/2017 Comp Metabolic Sld526 A/G Ratio 1.5 Ratio 10/20/2017 Comp Metabolic Xlj801 Osmo 281 mOsmo 10/20/2017 Tsh Ord6 TSH [...] 35.4 pg 10/20/2017 Cbc With Differential Ord2 [place]% 9.9 % 10/20/2017 Cbc With Differential Ord2 [...] 1.15 K/ul 10/20/2017 Cbc With Differential Ord2 [place] ABS# 0.6 K/ul 10/20/2017 Cbc With Differential Ord2 Eos ABS# 0.0 K/ul 10/20/2017 Cbc With Differential Ord2 Baso ABS# 0.0 K/ul 10/20/2017 Iron Ord72 Iron 75 ug/dl 10/20/2017 Romie Reflex Profile [id number] ROMIE (BRYANNA) SCREEN NONE DETECTED 01/12/2017 Comp Metabolic Gxv890 NA 129 mEq/L 01/08/2017 Comp Metabolic Aiy961 K 3.9 mEq/L 01/08/2017 Comp Metabolic Yxk782 CL 94 mEq/L 01/08/2017 Comp Metabolic Qbg426 CO2 31.0 mEq/L 01/08/2017 Comp Metabolic Smk637 ANION GAP 8 01/08/2017 Comp Metabolic Cbn058 GLUCOSE 103 mg/dL 01/08/2017 Comp Metabolic Eei343 Creat 0.9 mg/dL 01/08/2017 Comp Metabolic Hbn612 eGFR 61 ml/min/1.73m2 01/08/2017 Comp Metabolic Eqq055 BUN 29 mg/dL 01/08/2017 Comp Metabolic Zkm525 B/C Ratio 30.9 Ratio 01/08/2017 Comp Metabolic Juk444 CALCIUM 8.5 mg/dL 01/08/2017 Comp Metabolic Odo406 ALK PHOS 58 U/L 01/08/2017 Comp Metabolic Akc532 AST(SGOT) 17 U/L 01/08/2017 Comp Metabolic Zuj824 ALT(SGPT) 10 U/L 01/08/2017 Comp Metabolic Gio058 BILI T 0.4 mg/dL 01/08/2017 Comp Metabolic Sar652 ALBUMIN 3.0 g/dL 01/08/2017 Comp Metabolic Zgf822 TPRO 5.5 g/dL 01/08/2017 Comp Metabolic Gxr926 GLOB 2.5 g/dL 01/08/2017 Comp Metabolic Eik367 A/G Ratio 1.2 Ratio 01/08/2017 Comp Metabolic Qkg504 Osmo 265 mOsmo 01/08/2017 Cbc With Differential Ord2 WBC 6.95 K/ul 01/08/2017 Cbc With Differential Ord2 RBC 3.20 M/ul 01/08/2017 Cbc With Differential Ord2 HGB 10.8 g/dl 01/08/2017 Cbc With Differential Ord2 Neut% 62.9 % 01/08/2017 Cbc With Differential Ord2 HCT 32.7 % 01/08/2017 Cbc With Differential Ord2 MCV 102.2 fl 01/08/2017 Cbc With Differential Ord2 Lymph% 23.3 % 01/08/2017 Cbc With Differential Ord2 [place]% 12.2 % 01/08/2017 Cbc With Differential Ord2 [...] 1.62 K/ul 01/08/2017 Cbc With Differential Ord2 [place] ABS# 0.9 K/ul 01/08/2017 Cbc With Differential [...] 76.9 % 11/10/2016 Cbc With Differential Ord2 Lymph% 13.1 % 11/10/2016 Cbc With Differential Ord2 MCV 100.3 fl 11/10/2016 Cbc With Differential Ord2 [place]% 9.1 % 11/10/2016 Cbc With Differential Ord2 MCH 33.1 pg 11/10/2016 Cbc With Differential Ord2 MCHC 33.0 pg 11/10/2016 Cbc With Differential Ord2 Eos% 0.2 % 11/10/2016 Cbc With Differential Ord2 Baso% 0.7 % 11/10/2016 Cbc With Differential Ord2 PLT 280 K/ul 11/10/2016 Cbc With Differential Ord2 RDW 18.4 % 11/10/2016 Cbc With Differential Ord2 Neut ABS# 4.58 K/ul 11/10/2016 Cbc With Differential Ord2 Lymph ABS# 0.78 K/ul 11/10/2016 Cbc With Differential Ord2 [place] ABS# 0.5 K/ul 11/10/2016 Cbc With Differential [...] 67.7 % 10/07/2016 Cbc With Differential Ord2 Lymph% 19.2 % 10/07/2016 Cbc With Differential Ord2 MCV 95.4 fl 10/07/2016 Cbc With Differential Ord2 MCH 30.3 pg 10/07/2016 Cbc With Differential Ord2 [place]% 11.8 % 10/07/2016 Cbc With Differential Ord2 [...] 1.54 K/ul 10/07/2016 Cbc With Differential Ord2 [place] ABS# 1.0 K/ul 10/07/2016 Cbc With Differential Ord2 Eos ABS# 0.1 K/ul 10/07/2016 Cbc With Differential Ord2 Baso ABS# 0.0 K/ul 10/07/2016 Comp Metabolic Nzl782 NA 129 mEq/L 08/26/2016 Comp Metabolic Woa976 K 3.9 mEq/L 08/26/2016 Comp Metabolic Yzj862 CL 93 mEq/L 08/26/2016 Comp Metabolic Qcg949 CO2 30.0 mEq/L 08/26/2016 Comp Metabolic Aek312 ANION GAP 10 08/26/2016 Comp Metabolic Efu399 GLUCOSE 87 mg/dL 08/26/2016 Comp Metabolic Mfy006 Creat 0.6 mg/dL 08/26/2016 Comp Metabolic Fzq647 eGFR 96 ml/min/1.73m2 08/26/2016 Comp Metabolic Wql674 BUN 17 mg/dL 08/26/2016 Comp Metabolic Omw420 B/C Ratio 27.0 Ratio 08/26/2016 Comp Metabolic Ztg551 CALCIUM 7.6 mg/dL 08/26/2016 Comp Metabolic Jsn256 ALK PHOS 72 U/L 08/26/2016 Comp Metabolic Vfh148 AST(SGOT) 20 U/L 08/26/2016 Comp Metabolic Ets576 ALT(SGPT) 12 U/L 08/26/2016 Comp Metabolic Jyx778 BILI T 0.3 mg/dL 08/26/2016 Comp Metabolic Jzc306 ALBUMIN 2.7 g/dL 08/26/2016 Comp Metabolic Usy243 TPRO 5.3 g/dL 08/26/2016 Comp Metabolic Xdn345 GLOB 2.6 g/dL 08/26/2016 Comp Metabolic Dia116 A/G Ratio 1.1 Ratio 08/26/2016 Comp Metabolic Jft460 Osmo 260 mOsmo 08/26/2016 Cbc With Differential [...] 28.3 pg 08/26/2016 Cbc With Differential Ord2 [place]% 9.6 % 08/26/2016 Cbc With Differential Ord2 [...] 1.83 K/ul 08/26/2016 Cbc With Differential Ord2 [place] ABS# 1.0 K/ul 08/26/2016 Cbc With Differential Ord2 Eos ABS# 0.1 K/ul 08/26/2016 Cbc With Differential Ord2 Baso ABS# 0.0 K/ul 08/26/2016 Magnesium Ord90 Mag 1.9 mg/dL 08/26/2016 Vitamin D 25 Oh Khn9787 VITAMIN D, 25 HYDROXY 34.59 ng/mL Tibc Ord40 Iron 13 ug/dl 08/26/2016 Tibc Ord40 UIBC 283 ug/dL 08/26/2016 Tibc Ord40 TIBC 296 ug/dL 08/26/2016 Tibc Ord40 Fe-%Sat 4.4 % 08/26/2016 Ferritin Ord22 FERRITIN 28.8 ng/mL 08/26/2016 Sed Rate Ord21 ESR 20 mm/hr 11/19/2015 Comp Metabolic Txy611 NA 131 mEq/L 08/22/2015 Comp Metabolic Jen076 K 4.2 mEq/L 08/22/2015 Comp Metabolic Pkv838 CL 98 mEq/L 08/22/2015 Comp Metabolic Hjj079 CO2 27.0 mEq/L 08/22/2015 Comp Metabolic Dkg515 ANION GAP 10 08/22/2015 Comp Metabolic Zof599 GLUCOSE 80 mg/dL 08/22/2015 Comp Metabolic Hfc824 Creat 0.5 mg/dL 08/22/2015 Comp Metabolic Stp563 eGFR 120 ml/min/1.73m2 08/22/2015 Comp Metabolic Gjp054 BUN 13 mg/dL 08/22/2015 Comp Metabolic Hxl953 B/C Ratio 25.0 Ratio 08/22/2015 Comp Metabolic Vpr963 CALCIUM 8.2 mg/dL 08/22/2015 Comp Metabolic Uck614 ALK PHOS 49 U/L 08/22/2015 Comp Metabolic Asg030 AST(SGOT) 18 U/L 08/22/2015 Comp Metabolic Auc664 ALT(SGPT) 11 U/L 08/22/2015 Comp Metabolic Twj759 BILI T 0.5 mg/dL 08/22/2015 Comp Metabolic Jsk165 ALBUMIN 3.5 g/dL 08/22/2015 Comp Metabolic Cnu329 TPRO 6.2 g/dL 08/22/2015 Comp Metabolic Bvr604 GLOB 2.7 g/dL 08/22/2015 Comp Metabolic Rvw943 A/G Ratio 1.3 Ratio 08/22/2015 Comp Metabolic Eed778 Osmo 262 mOsmo 08/22/2015 Cbc With Differential Ord2 WBC 6.50 K/ul 08/22/2015 Cbc With Differential Ord2 RBC 3.67 M/ul 08/22/2015 Cbc With Differential Ord2 HGB 11.9 g/dl 08/22/2015 Cbc With Differential Ord2 Neut% 66.7 % 08/22/2015 Cbc With Differential Ord2 HCT 35.8 % 08/22/2015 Cbc With Differential Ord2 Lymph% 21.4 % 08/22/2015 Cbc With Differential Ord2 MCV 97.5 fl 08/22/2015 Cbc With Differential Ord2 MCH 32.4 pg 08/22/2015 Cbc With Differential Ord2 [place]% 10.3 % 08/22/2015 Cbc With Differential Ord2 Eos% 1.1 % 08/22/2015 Cbc With Differential Ord2 MCHC 33.2 pg 08/22/2015 Cbc With Differential Ord2 PLT 255 K/ul 08/22/2015 Cbc With Differential Ord2 Baso% 0.5 % 08/22/2015 Cbc With Differential Ord2 Neut ABS# 4.34 K/ul 08/22/2015 Cbc With Differential Ord2 RDW 13.6 % 08/22/2015 Cbc With Differential Ord2 Lymph ABS# 1.39 K/ul 08/22/2015 Cbc With Differential Ord2 [place] ABS# 0.7 K/ul 08/22/2015 Cbc With Differential Ord2 Eos ABS# 0.1 K/ul 08/22/2015 Cbc With Differential Ord2 Baso ABS# 0.0 K/ul 08/22/2015 Tsh Ord6 hTSH II 2.19 uIU/mL 08/22/2015 Vitamin D 25 Oh Atn5461 VITAMIN D, 25 HYDROXY 55.10 ng/mL Lipid [...] 1.5 Ratio 03/16/2015 Vitamin D 25 Oh Ktc9106 VITAMIN D, 25 HYDROXY 28.94 ng/mL Cbc [...] 28.1 pg 03/16/2015 Cbc With Differential Ord2 [place]% 11.2 % 03/16/2015 Cbc With Differential Ord2 [...] 2.37 K/ul 03/16/2015 Cbc With Differential Ord2 [place] ABS# 0.8 K/ul 03/16/2015 Cbc With Differential Ord2 Eos ABS# 0.1 K/ul 03/16/2015 Cbc With Differential Ord2 Baso ABS# 0.0 K/ul 03/16/2015 Cbc With Differential Ord2 New Analyzer Notice Please note new ref ranges starting 03-14-2015 due to implemntation of new five part differential hematolgy analyzer. 03/16/2015 Comp Metabolic Ukk672 NA 131 mEq/L 03/16/2015 Comp Metabolic Kql303 K 4.1 mEq/L 03/16/2015 Comp Metabolic Ppt083 CL 94 mEq/L 03/16/2015 Comp Metabolic Hxm000 CO2 28.0 mEq/L 03/16/2015 Comp Metabolic Fqb283 ANION GAP 13 03/16/2015 Comp Metabolic Ibg608 GLUCOSE 96 mg/dL 03/16/2015 Comp Metabolic Vux467 Creat 0.7 mg/dL 03/16/2015 Comp Metabolic Owz776 eGFR 80 ml/min/1.73m2 03/16/2015 Comp Metabolic Lly442 BUN 16 mg/dL 03/16/2015 Comp Metabolic Pgt122 B/C Ratio 21.6 Ratio 03/16/2015 Comp Metabolic Tjs291 CALCIUM 8.9 mg/dL 03/16/2015 Comp Metabolic Nff469 ALK PHOS 44 U/L 03/16/2015 Comp Metabolic Zzp894 AST(SGOT) 22 U/L 03/16/2015 Comp Metabolic Zaz467 ALT(SGPT) 14 U/L 03/16/2015 Comp Metabolic Myc192 BILI T 0.5 mg/dL 03/16/2015 Comp Metabolic Ojf760 ALBUMIN 3.4 g/dL 03/16/2015 Comp Metabolic Xxj683 TPRO 6.0 g/dL 03/16/2015 Comp Metabolic Kmy622 GLOB 2.6 g/dL 03/16/2015 Comp Metabolic Ukb715 A/G Ratio 1.3 Ratio 03/16/2015 Comp Metabolic Cqk682 Osmo 264 mOsmo 03/16/2015 Comp Metabolic Pnu350 NA 129 mEq/L 11/09/2014 Comp Metabolic Mth884 K 4.2 mEq/L 11/09/2014 Comp Metabolic Zco413 CL 96 mEq/L 11/09/2014 Comp Metabolic Czm995 CO2 27.0 mEq/L 11/09/2014 Comp Metabolic Kig577 ANION GAP 10 11/09/2014 Comp Metabolic Lwv609 GLUCOSE 144 mg/dL 11/09/2014 Comp Metabolic Uon891 Creat 0.8 mg/dL 11/09/2014 Comp Metabolic Dnf760 eGFR 73 ml/min/1.73m2 11/09/2014 Comp Metabolic Xbe987 BUN 22 mg/dL 11/09/2014 Comp Metabolic Bec332 B/C Ratio 27.5 Ratio 11/09/2014 Comp Metabolic Gdc250 CALCIUM 8.6 mg/dL 11/09/2014 Comp Metabolic Ktc959 ALK PHOS 55 U/L 11/09/2014 Comp Metabolic Bgu927 AST(SGOT) 27 U/L 11/09/2014 Comp Metabolic Qmw084 ALT(SGPT) 18 U/L 11/09/2014 Comp Metabolic Hvu351 BILI T 0.5 mg/dL 11/09/2014 Comp Metabolic Ocj365 ALBUMIN 3.0 g/dL 11/09/2014 Comp Metabolic Xsv093 TPRO 5.4 g/dL 11/09/2014 Comp Metabolic Htw153 GLOB 2.4 g/dL 11/09/2014 Comp Metabolic Hyo178 A/G Ratio 1.3 Ratio 11/09/2014 Comp Metabolic Siq332 Osmo 265 mOsmo 11/09/2014 Magnesium Ord90 Mag 1.8 mg/dL 11/09/2014 Review of Systems System Result Effective Dates Constitutional recent illness 04/21/2018 Constitutional No chills [...] Procedure Codes Date THER/PROPH/DIAG INJ SC/IM CPT-4: 84200 04/21/2018 PROMETHAZINE HCL INJECTION CPT-4: J2550 04/21/2018 DRAIN/INJECT JOINT/BURSA CPT-4: 42583 08/21/2017 DRAIN/INJECT JOINT/BURSA CPT-4: 99729 08/12/2017 TRIAMCINOLONE ACET INJ NOS CPT-4: J3301 08/12/2017 DRAIN/INJECT JOINT/BURSA CPT-4: 27193 08/05/2017 TRIAMCINOLONE ACET INJ NOS CPT-4: J3301 08/05/2017 DRAIN/INJECT JOINT/BURSA CPT-4: 92237 07/23/2017 DRAIN/INJECT JOINT/BURSA CPT-4: 85014 07/09/2017 TRIAMCINOLONE ACET INJ NOS CPT-4: J3301 07/09/2017 PRESCRIP TRANSMIT VIA ERX SY CPT-4: G8553 07/09/2017 DRAIN/INJECT JOINT/BURSA CPT-4: 43392 07/01/2017 TRIAMCINOLONE ACET INJ NOS CPT-4: J3301 07/01/2017 PRESCRIP TRANSMIT VIA ERX SY CPT-4: G8553 07/01/2017 DRAIN/INJECT JOINT/BURSA CPT-4: 84187 06/17/2017 DRAIN/INJECT JOINT/BURSA CPT-4: 25544 04/02/2017 TRIAMCINOLONE ACET INJ NOS CPT-4: J3301 04/02/2017 DRAIN/INJECT JOINT/BURSA CPT-4: 23013 02/06/2017 ADMIN INFLUENZA VIRUS VAC CPT-4: G0008 12/08/2016 FLU VACC PRSV FREE INC ANTIG CPT-4: 39140 12/08/2016 PRESCRIP TRANSMIT VIA ERX SY CPT-4: G8553 12/08/2016 PRESCRIP TRANSMIT VIA ERX SY CPT-4: G8553 11/17/2016 TRIAMCINOLONE ACET INJ NOS CPT-4: J3301 10/02/2016 TRIAMCINOLONE ACET INJ NOS CPT-4: J3301 09/12/2016 DRAIN/INJECT JOINT/BURSA CPT-4: 08614 09/08/2016 TRIAMCINOLONE ACET INJ NOS CPT-4: J3301 09/08/2016 PRESCRIP TRANSMIT VIA ERX SY CPT-4: G8553 08/26/2016 PRESCRIP TRANSMIT VIA ERX SY CPT-4: G8553 08/18/2016 ADMIN INFLUENZA VIRUS VAC CPT-4: G0008 11/19/2015 FLU VACC PRSV FREE INC ANTIG Formatting Model/CDA Sections, Assigned to/Luanne Elaine CPT-4: 93174Raxfpat 11/19/2015 PRESCRIP TRANSMIT VIA ERX SY CPT-4: G8553 09/04/2015 PRESCRIP TRANSMIT VIA ERX SY CPT-4: G8553 2015 PRESCRIP TRANSMIT VIA ERX SY CPT-4: G8553 07/18/2015 PRESCRIP TRANSMIT VIA ERX SY CPT-4: G8553 07/02/2015 REMOVE IMPACTED EAR WAX UNI CPT-4: 60889 04/09/2015 PRESCRIP TRANSMIT VIA ERX SY CPT-4: G8553 02/08/2015 ADMIN INFLUENZA VIRUS VAC CPT-4: G0008 01/10/2015 FLU VACC PRSV FREE INC ANTIG Formatting Model/CDA Sections, Assigned to/Luanne Elaine CPT-4: 45800Prsjtpw 01/10/2015 ADMIN PNEUMOCOCCAL VACCINE Formatting Model/CDA Sections, Assigned to SNOMED CT: 10363065 CPT-4: M5343Qtyefeo 12/11/2014 PNEUMOCOCCAL VACC [address]: 11014744 CPT-4: 88975 12/11/2014 Vital Signs Date Vital 04/21/2018 Blood Pressure 1: 104/64 Code : [...] Code : 8480-6 BMI: 23.5 Code : 58758-2 Heart Rate 1 : 58 bpm Height: 5'8" SpO2: 96% Weight: 152 lbs 11/30/2017 Blood Pressure 1: 122/70 Code : 8480-6 Heart Rate 1: 105 bpm Height: 5'8" SpO2: 98% Weight: 11/27/2017 Blood Pressure 1: 148/76 Code : 8480-6 Heart Rate 1: 72 bpm Height: 5'8" SpO2: 99% Weight: 11/10/2017 Blood Pressure 1: 130/76 Code : 8480-6 BMI: 27.3 Code : 49254-9 Heart Rate 1 : 98 bpm Height: [...] Code : 8480-6 BMI: 24.7 Code : 18981-3 Heart Rate 1 : 100 bpm Height: 5'8" SpO2: 95% Weight: 160 lbs 08/31/2017 Blood Pressure 1: 128/78 Code : 8480-6 BMI: 23.6 Code : 11551-9 Heart Rate 1 : 102 bpm Height: 5'8" SpO2: 96% Weight: 153 lbs 08/21/2017 Blood Pressure 1: 138/78 Code : 8480-6 Heart Rate 1: 97 bpm SpO2: 95% Weight: 156 lbs 2 oz 08/12/2017 Blood Pressure 1: 138/74 Code : 8480-6 BMI: 25.0 Code : 42121-7 Heart Rate 1 : 94 bpm Height: 5'8" SpO2: 98% Weight: 162 lbs 08/05/2017 Blood Pressure 1: 126/78 Code : 8480-6 BMI: 25.8 Code : 97438-4 Heart Rate 1 : 74 bpm Height: 5'8" SpO2: 96% Weight: 167 lbs 07/23/2017 Blood Pressure 1: 106/64 Code : 8480-6 BMI: 25.3 Code : 28742-9 Heart Rate 1 : 81 bpm Height: 5'8" SpO2: 99% Weight: 163 lbs 14 oz 07/09/2017 Blood Pressure 1: 130/68 Code : 8480-6 Heart Rate 1: 82 bpm Height: 5'8" SpO2: 98% Weight: 07/01/2017 Blood Pressure 1: 124/76 Code : 8480-6 BMI: 26.5 Code : 99066-5 Heart Rate 1 : 99 bpm Height: 5'8" SpO2: 98% Weight: 172 lbs 06/24/2017 Blood Pressure 1: 118/70 Code : 8480-6 Heart Rate 1: 103 bpm Height: 5'8" SpO2: 98% Weight: 06/17/2017 Blood Pressure 1: 110/64 Code : 8480-6 BMI: 25.0 Code : 92200-9 Heart Rate 1 : 73 bpm Height: 5'8" Weight: 162 lbs 06/01/2017 Blood Pressure 1: 158/84 Code : 8480-6 BMI: 24.4 Code : 12251-0 Heart Rate 1 : 94 bpm Height: 5'8" SpO2: 95% Weight: 158 lbs 04/02/2017 Blood Pressure 1: 164/80 Code : 8480-6 BMI: 23.1 Code : 27167-5 Heart Rate 1 : 76 bpm Height: 5'8" SpO2: 94% Weight: 150 lbs 03/12/2017 Blood Pressure 1: 130/74 Code : 8480-6 BMI: 23.0 Code : 31310-0 Heart Rate 1 : 92 bpm Height: 5'8" SpO2: 94% Weight: 149 lbs 02/06/2017 Height: Weight: 01/08/2017 Blood Pressure 1: 136/76 Code : 8480-6 BMI: 21.4 Code : 63615-4 Heart Rate 1 : 85 bpm Height: 5'8" SpO2: 98% Weight: 138 lbs 8 oz 12/08/2016 Blood Pressure 1: 132/66 Code : 8480-6 BMI: 22.2 Code : 83100-3 Heart Rate 1 : 106 bpm Height: 5'8" SpO2: 97% Weight: 144 lbs 11/17/2016 Blood Pressure 1: 146/80 Code : 8480-6 BMI: 22.4 Code : 71857-5 Heart Rate 1 : 100 bpm Height: 5'8" SpO2: 98% Weight: 145 lbs 11/10/2016 Blood Pressure 1: 122/62 Code : 8480-6 BMI: 22.2 Code : 80875-6 Height: 5'8" Weight: 144 lbs 11/05/2016 Blood Pressure 1: 146/80 Code : 8480-6 BMI: 22.2 Code : 95494-5 Heart Rate 1 : 77 bpm Height: 5'8" SpO2: 99% Weight: 144 lbs 10/07/2016 Blood Pressure 1: 132/68 Code : 8480-6 BMI: 22.8 Code : 22589-4 Heart Rate 1 : 90 bpm Height: 5'8" SpO2: 97% Weight: 148 lbs 10/02/2016 Blood Pressure 1: 166/86 Code : 8480-6 BMI: 22.8 Code : 95233-3 Heart Rate 1 : 96 bpm Height: 5'8" SpO2: 96% Weight: 148 lbs 09/12/2016 Blood Pressure 1: 130/86 Code : 8480-6 Height: Weight: 09/08/2016 Blood Pressure 1: 132/74 Code : 8480-6 BMI: 22.4 Code : 29496-0 Heart Rate 1 : 93 bpm Height: 5'8" SpO2: 99% Weight: 145 lbs 08/26/2016 Blood Pressure 1: 132/78 Code : 8480-6 BMI: 23.9 Code : 25217-1 Heart Rate 1 : 80 bpm Height: 5'8" SpO2: 94% Weight: 155 lbs 08/18/2016 Blood Pressure 1: 130/70 Code : 8480-6 BMI: 23.6 Code : 94812-5 Heart Rate 1 : 100 bpm Height: 5'8" SpO2: 94% Weight: 153 lbs 07/30/2016 Blood Pressure 1: 144/84 Code : 8480-6 BMI: 22.4 Code : 20997-4 Heart Rate 1 : 86 bpm Height: 5'8" SpO2: 97% Weight: 145 lbs 07/14/2016 Blood Pressure 1: 122/74 Code : 8480-6 BMI: 22.5 Code : 83651-7 Heart Rate 1 : 87 bpm Height: 5'8" SpO2: 97% Weight: 146 lbs 07/04/2016 Blood Pressure 1: 128/78 Code : 8480-6 BMI: 22.5 Code : 14068-1 Heart Rate 1 : 98 bpm Height: 5'8" Weight: 146 lbs 06/26/2016 Blood Pressure 1: 122/68 Code : 8480-6 BMI: 22.5 Code : 63552-8 Heart Rate 1 : 102 bpm Height: 5'8" SpO2: 98% Weight: 146 lbs 05/28/2016 Blood Pressure 1: 122/68 Code : 8480-6 BMI: 22.4 Code : 15234-5 Heart Rate 1 : 89 bpm Height: 5'8" SpO2: 97% Weight: 145 lbs 03/18/2016 Blood Pressure 1: 132/66 Code : 8480-6 BMI: 22.8 Code : 03630-7 Heart Rate 1 : 96 bpm Height: 5'8" SpO2: 98% Weight: 148 lbs 01/29/2016 Blood Pressure 1: 122/66 Code : 8480-6 BMI: 22.2 Code : 95601-1 Heart Rate 1 : 90 bpm Height: 5'8" SpO2: 99% Weight: 144 lbs 01/01/2016 Blood Pressure 1: 148/82 Code : 8480-6 BMI: 22.5 Code : 04329-0 Heart Rate 1 : 82 bpm Height: 5'8" Weight: 146 lbs 11/19/2015 Blood Pressure 1: 140/74 Code : 8480-6 BMI: 23.7 Code : 56253-1 Heart Rate 1 : 79 bpm Height: 5'8" SpO2: 96% Weight: 153 lbs 8 oz 11/01/2015 Blood Pressure 1: 118/72 Code : 8480-6 Heart Rate 1: 90 bpm Height: 5'8" SpO2: 95% 09/04/2015 Blood Pressure 1: 136/72 Code : 8480-6 BMI: 23.1 Code : 53726-2 Heart Rate 1 : 97 bpm Height: 5'8" SpO2: 98% Weight: 149 lbs 8 oz 2015 Blood Pressure 1: 144/76 Code : 8480-6 BMI: 22.8 Code : 22558-4 Heart Rate 1 : 75 bpm Height: 5'8" SpO2: 97% Weight: 148 lbs 07/18/2015 Blood Pressure 1: 132/60 Code : 8480-6 BMI: 23.1 Code : 83900-8 Heart Rate 1 : 78 bpm Height: 5'8" Weight: 150 lbs 07/02/2015 Blood Pressure 1: 156/86 Code : 8480-6 BMI: 23.0 Code : 02627-1 Heart Rate 1 : 75 bpm Height: 5'8" SpO2: 99% Weight: 149 lbs 05/31/2015 Blood Pressure 1: 136/72 Code : 8480-6 BMI: 22.7 Code : 14889-9 Heart Rate 1 : 85 bpm Height: 5'8" SpO2: 97% Weight: 147 lbs 04/09/2015 Blood Pressure 1: 118/60 Code : 8480-6 BMI: 22.7 Code : 40760-2 Heart Rate 1 : 72 bpm Height: 5'8" SpO2: 95% Weight: 147 lbs 02/08/2015 Blood Pressure 1: 138/76 Code : 8480-6 BMI: 23.1 Code : 79904-7 Heart Rate 1 : 80 bpm Height: 5'8" SpO2: 98% Weight: 150 lbs 12/11/2014 Blood Pressure 1: 120/74 Code : 8480-6 BMI: 22.1 Code : 31181-9 Heart Rate 1 : 92 bpm Height: 5'8" SpO2: 96% Weight: 143 lbs 11/09/2014 Blood Pressure 1: 100/64 Code : 8480-6 BMI: 21.6 Code : 19105-5 Heart Rate 1 : 88 bpm Height: 5'8" Weight: 140 lbs 10/23/2014 Blood Pressure 1: 138/82 Code : 8480-6 BMI: 23.6 Code : 52880-4 Heart Rate 1 : 86 bpm Height: 5'8" Weight: 153 lbs 10/16/2014 Blood Pressure 1: 128/60 Code : 8480-6 BMI: 23.3 Code : 60584-9 Heart Rate 1 : 91 bpm Height: 5'8" SpO2: 99% Weight: 151 lbs 10/09/2014 Blood Pressure 1: 120/60 Code : 8480-6 BMI: 23.0 Code : 85581-1 Heart Rate 1 : 96 bpm Height: 5'8" SpO2: 97% Weight: 149 lbs 09/14/2014 Blood Pressure 1: 132/72 Code : 8480-6 BMI: 22.1 Code : 70332-9 Heart Rate 1 : 84 bpm Height: 5'8" SpO2: 97% Weight: 143 lbs 08/11/2014 Blood Pressure 1: 134/74 Code : 8480-6 BMI: 24.1 Code : 65328-9 Heart Rate 1 : 88 bpm Height: 5'8" Weight: 156 lbs 07/12/2014 Blood Pressure 1: 122/62 Code : 8480-6 BMI: 22.7 Code : 76243-6 Heart Rate 1 : 76 bpm Height: 5'8" Weight: 147 lbs Functional Status No Functional Status data History of Present Illness Symptom Name Status Result Effective Date Notes Onset of Symptom _ hours ago 04/21/2018 [...] Dr. Blancas in [place] and Neurosurgeon in [place] in the past neck pain Significant Medical Conditions spinal stenosis 07/12/2014 has osteoarthritis Advance Directives No Advance Directive data Encounters Encounter Performer Location Codes Date EST. PATIENT, LEVEL III Diagnosis: Other specified intestinal infections[ICD10: A08.8] Diagnosis: Diarrhea, unspecified[ICD10: R19.7] [facility] CPT-4: 44558 04/21/2018 ([id number]) 13088 EST. PATIENT, LEVEL IV Diagnosis: Essential (primary) hypertension[ICD10: I10] Diagnosis: Hypo-osmolality and hyponatremia[ICD10: E87.1] Diagnosis: Chronic pain syndrome[ICD10: G89.4] Araceli Silva MD, [facility] CPT-4: 92382 03/03/2018 ([id number]) [id number] EST. PATIENT, LEVEL III Diagnosis: Cough[ICD10: R05] Diagnosis: Acute bronchitis, unspecified[ICD10: J20.9] Diagnosis: Chronic obstructive pulmonary disease, unspecified[ICD10: J44.9] Ila Silva MD, [facility] CPT-4: 61815 02/12/2018 ([id number]) 16158 EST. PATIENT, LEVEL IV Diagnosis: Chronic pain syndrome[ICD10: G89.4] Diagnosis: Cough[ICD10: R05] Diagnosis: Diarrhea, unspecified[ICD10: R19.7] Diagnosis: Generalized edema[ICD10: R60.1] Ila Silva MD, [facility] CPT-4: 87245 02/09/2018 ([id number]) 13314 EST. PATIENT, LEVEL III Diagnosis: Generalized edema[ICD10: R60.1] Diagnosis: Lymphedema, not elsewhere classified[ICD10: I89.0] Araceli Silva MD, [facility] CPT-4: 29843 01/14/2018 ([id number]) 20633 EST. PATIENT, LEVEL IV Diagnosis: Essential (primary) hypertension[ICD10: I10] Diagnosis: Generalized edema[ICD10: R60.1] Diagnosis: Chronic pain syndrome[ICD10: G89.4] Araceli Silva MD, [facility] CPT-4: 98671 12/24/2017 ([id number]) 12371 EST. PATIENT, LEVEL III Diagnosis: Lymphedema, not elsewhere classified[ICD10: I89.0] Araceli Silva MD, [facility] CPT-4: 05808 11/30/2017 ([id number]) 64843 EST. PATIENT, LEVEL III Diagnosis: Generalized edema[ICD10: R60.1] Ila Silva MD, [facility] CPT-4: 69058 11/27/2017 ([id number]) 76007 EST. PATIENT, LEVEL IV Diagnosis: Localized edema[ICD10: [...] in left shoulder[ICD10: M25.512] Araceli Silva MD, [facility] CPT-4: 86074 11/10/2017 ([id number]) 74274 EST. PATIENT, LEVEL IV Diagnosis: Localized edema[ICD10: [...] shoulder[ICD10: M25.512] [facility] CPT-4: 27414 10/29/2017 ([id number]) 40474 EST. PATIENT, LEVEL IV Diagnosis: Essential (primary) [...] R60.0] [facility] CPT- 4: 83931 10/20/2017 [id number]) 97644 EST. 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 PATIENT, LEVEL IV Diagnosis: Primary osteoarthritis, left shoulder[ICD10: M19.012] Diagnosis: Pain in left shoulder[ICD10: M25.512] Diagnosis: Lymphedema, not elsewhere classified[ICD10: I89.0] Diagnosis: Localized edema[ICD10: R60.0] Diagnosis: Chronic atrial fibrillation[ICD10: I48.2] Araceli Silva MD, [facility] CPT-4: 72695 09/15/2017 [id number] [id number] EST. PATIENT, LEVEL III Diagnosis: Primary osteoarthritis, left shoulder[ICD10: M19.012] Diagnosis: Pain in left shoulder[ICD10: M25.512] Diagnosis: Hemarthrosis, left shoulder[ICD10: M25.012] Araceli Silva MD, [facility] CPT-4: 57456 08/31/2017 [id number]) 46476 EST. PATIENT, LEVEL IV Diagnosis: Essential (primary) hypertension[ICD10: I10] Diagnosis: Chronic pain syndrome[ICD10: G89.4] Diagnosis: Primary osteoarthritis, right shoulder[ICD10: M19.011] Diagnosis: Primary osteoarthritis, left shoulder[ICD10: M19.012] Diagnosis: Hemarthrosis, left shoulder[ICD10: M25.012] Diagnosis: Hemarthrosis, right shoulder[ICD10: M25.011] Diagnosis: Pain in right shoulder[ICD10: M25.511] Diagnosis: Pain in left shoulder[ICD10: M25.512] Araceli Silva MD, [facility] CPT-4: 23443 08/05/2017 ([id number]) 08577 EST. PATIENT, LEVEL III Diagnosis: Localized edema[ICD10: R60.0] Araceli Silva MD, [facility] CPT- 4: 58215 07/23/2017 ([id number]) 62678 EST. PATIENT, LEVEL III Diagnosis: Rheumatoid arthritis without rheumatoid factor, left shoulder[ICD10: M06.012] Diagnosis: Hemarthrosis, left shoulder[ICD10: M25.012] Araceli Silva MD, [facility] CPT-4: 63704 07/09/2017 ([id number]) 18987 EST. PATIENT, LEVEL III Diagnosis: Chronic pain syndrome[ICD10: G89.4] Diagnosis: Rheumatoid arthritis without rheumatoid factor, left shoulder[ICD10: M06.012] Diagnosis: Hemarthrosis, left shoulder[ICD10: M25.012] Diagnosis: Lymphedema, not elsewhere classified[ICD10: I89.0] Araceli Silva MD, [facility] CPT-4: 02806 07/01/2017 ([id number]) 24192 EST. PATIENT, LEVEL III Diagnosis: Chronic pain syndrome[ICD10: G89.4] Araceli Silva MD, [facility] CPT-4: 82241 06/24/2017 ([id number]) 91912 EST. PATIENT, LEVEL IV Diagnosis: Rheumatoid arthritis without rheumatoid factor, right shoulder[ICD10 : M06.011] Diagnosis: Rheumatoid arthritis without rheumatoid factor, left shoulder[ICD10: M06.012] Diagnosis: Pain in right shoulder[ICD10: M25.511] Diagnosis: Pain in left shoulder[ICD10: M25.512] Diagnosis: Chronic atrial fibrillation[ICD10: I48.2] Araceli Silva MD, [facility] CPT-4: 37293 06/17/2017 12745 EST. PATIENT, LEVEL III Diagnosis: Pain in left shoulder[ICD10: M25.512] Diagnosis: Hemarthrosis, right shoulder[ICD10: M25.011] Diagnosis: Hemarthrosis, left shoulder[ICD10: M25.012] Maricel Silva MD, [facility] CPT-4: 48360 06/01/2017 ([id number]) 47270 EST. PATIENT, LEVEL II Diagnosis: Pain in right shoulder[ICD10: M25.511] Diagnosis: Hemarthrosis, right shoulder[ICD10: M25.011] Araceli Silva MD, [facility] CPT-4: 90373 04/02/2017 ([id number]) 92837 EST. PATIENT, LEVEL IV Diagnosis: Chronic pain syndrome[ICD10: G89.4] Diagnosis: Rheumatoid arthritis without rheumatoid factor, right shoulder[ICD10 : M06.011] Diagnosis: Rheumatoid arthritis without rheumatoid factor, left shoulder[ICD10: M06.012] Araceli Silva MD, [facility] CPT-4: 29309 2017 ([id number]) 94902 EST. 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 PATIENT, LEVEL IV Diagnosis: Encounter for immunization[ICD10: Z23] Diagnosis: Chronic pain syndrome[ICD10: G89.4] Diagnosis: Essential (primary) hypertension[ICD10: I10] Araceli Silva MD, [facility] CPT-4: 61483 12/08/2016 ([id number]) 62266 EST. PATIENT, LEVEL III Diagnosis: Urge incontinence[ICD10: N39.41] Diagnosis: Chronic pain syndrome[ICD10: G89.4] Diagnosis: Lymphedema, not elsewhere classified[ICD10: I89.0] Araceli Silva MD, [facility] CPT-4: 10570 11/17/2016 28921 EST. 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 PATIENT, LEVEL IV Diagnosis: Essential (primary) hypertension[ICD10: I10] Diagnosis: Other chronic pain[ICD10: G89.29] Diagnosis: Localized edema[ICD10: R60.0] Diagnosis: Urge incontinence[ICD10: N39.41] Araceli Silva MD, [facility] CPT-4: 16020 11/05/2016 ([id number]) 38891 EST. 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 PATIENT, LEVEL III Diagnosis: Hemarthrosis, right shoulder[ICD10: M25.011] Diagnosis: Pain in right shoulder[ICD10: M25.511] Ila Silva MD, [facility] CPT-4: 90761 10/02/2016 09421 EST. PATIENT, LEVEL II Diagnosis: Low back pain[ICD10: M54.5] Diagnosis: Sacroiliitis, not elsewhere classified[ICD10: M46.1] Ila Silva MD, [facility] CPT-4: 33780 09/12/2016 ([id number]) 37191 EST. PATIENT, LEVEL III Diagnosis: Hemarthrosis, right shoulder[ICD10: M25.011] Diagnosis: Other chronic pain[ICD10: G89.29] Araceli Silva MD, [facility] CPT-4: 26911 09/08/2016 ([id number]) 03803 EST. PATIENT, LEVEL IV Diagnosis: Other iron deficiency anemias[ICD10: D50.8] Diagnosis: Vitamin D deficiency, unspecified[ICD10: E55.9] Diagnosis: Hypomagnesemia[ICD10: E83.42] Araceli Silva MD [facility] CPT- 4: 74545 08/26/2016 ([id number]) 19549 EST. PATIENT, LEVEL III Diagnosis: Localized edema[ICD10: R60.0] Araceli Silva MD [facility] CPT- 4: 57364 08/18/2016 ([id number]) 14393 EST. 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 PATIENT, LEVEL IV Diagnosis: Pain in left shoulder[ICD10: M25.512] Diagnosis: Nocturia[ICD10: R35.1] Maricel Silva MD, [facility] CPT-4: 68866 07/14/2016 94052 EST. PATIENT, LEVEL III Diagnosis: Pain in left shoulder[ICD10: M25.512] Maricel Silva MD [facility] CPT-4: 36001 07/04/2016 ([id number]) 47957 EST. 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 PATIENT, LEVEL II Diagnosis: Insect bite (nonvenomous) of right upper arm, initial encounter[ICD10 : S40.861A] Ila Silva MD, [facility] CPT-4: 91569 11/01/2015 ([id number]) 91010 EST. 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 PATIENT, LEVEL III Diagnosis: Contusion of left upper arm, subsequent encounter[ICD10: S40.022D] Araceli Silva MD, [facility] CPT-4: 57190 2015 15097 EST. PATIENT, LEVEL III Diagnosis: Cellulitis of left upper limb[ICD10: L03.114] Maricel Silva MD, [facility] CPT-4: 29433 07/18/2015 ([id number]) 39839 EST. 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 PATIENT, LEVEL IV Diagnosis: Essential (primary) hypertension[ICD10: I10] Diagnosis: Vitamin D deficiency, unspecified[ICD10: E55.9] Diagnosis: Mixed hyperlipidemia[ICD10: E78.2] Diagnosis: Age-related osteoporosis with current pathological fracture, unspecified site, sequela[ICD10: M80.00XS] Araceli Silva MD, [facility] CPT- 4: 48450 02/08/2015 ([id number]) 93188 EST. PATIENT, LEVEL IV Diagnosis: Essential (primary) hypertension[ICD10: I10] Diagnosis: Localized edema[ICD10: R60.0] Diagnosis: Primary osteoarthritis, unspecified site[ICD10: M19.91] Araceli Silva MD [facility] CPT-4: 33041 12/11/2014 ([id number]) 08779 EST. PATIENT, LEVEL III Diagnosis: EDEMA[ICD9: 782.3] Diagnosis: ESSENTIAL HYPERTENSION[ICD9: 401.9] Araceli Silva MD, [facility] CPT-4: 78953 11/09/2014 ([id number]) 34214 EST. PATIENT, LEVEL III Diagnosis: Leg pain[ICD9: 729.5] Diagnosis: Ulcer of toe[ICD9: 707.15] Araceli Silva MD, [facility] CPT- 4: 57781 10/23/2014 ([id number]) 13898 EST. PATIENT, LEVEL III Diagnosis: Ulcer of toe[ICD9: 707.15] Araceli Silva MD [facility] CPT- 4: 54027 10/16/2014 00695 EST. PATIENT, LEVEL II Diagnosis: Ulcer of toe[ICD9: 707.15] Ila Silva MD, [facility] CPT-4: 24785 10/09/2014 ([id number]) 64349 EST. PATIENT, LEVEL III Diagnosis: EDEMA[ICD9: 782.3] Araceli Silva MD, [facility] CPT-4: 07662 09/14/2014 ([id number]) 94323 EST. PATIENT, LEVEL IV Diagnosis: EDEMA[ICD9: 782.3] Diagnosis: ESSENTIAL HYPERTENSION[ICD9: 401.9] Araceli Silva MD, [facility] CPT-4: 02115 08/11/2014 ([id number]) OFFICE VISIT, NEW - LEVEL 4 Diagnosis: HYPERLIPIDEMIA[ICD9: 272.4] Diagnosis: VITAMIN D DEFICIENCY[ICD9: 268.9] Diagnosis: Osteoporosis[ICD9: 733.00] Diagnosis: Esophageal reflux[ICD9: 530.81] Diagnosis: Chronic pain[ICD9: 338.29] [facility] CPT- 4: 60541 07/12/2014 Plan of Care Planned Activity Notes Codes Status Date Visit Plan: Gastroenteritis - discussed need to [...] pain. 04/21/2018 App[facility]ment[phone] ([facility] min) Complex 04/21/2018 Patient Education: Patient [...] with fentanyl 03/03/2018 Appointment: [facility] Silva [phone] (15 min) Moderate 03/03/2018 Patient Education: Patient [...] breath - will send rx to [facility] 02/12/2018 Appointment: Ila Kennedy WPtel: [phone] [phone] (30 min) Complex 02/12/2018 Patient Education: Patient Medication Summary Completed 02/12/2018 Visit Plan: Chronic Pain Syndrome - pt has chronic pain - has been maintained on current medications, has not sought out other medications , only uses PRN pain medications as directed, and understands the consequences of over-medication. Tldlc-vthwusexhi-icsdxwnf with lasix/metolazone -if swelling /weight increase, okay to increase metolazone to daily as directed Cough- okay for robitussin dm Diarrhea- rx for lomotil written and instructed on use-follow up in 3 weeks, sooner if needed. Call with any concerns. 02/09/2018 Appointment: Ila Kennedy WPtel: [phone] [phone] (30 min) Complex 02/09/2018 Patient Education: Patient Medication Summary Completed 02/09/2018 Appointment: Araceli Silva WPtel: [facility] [facility] (15 min) Moderate 02/04/2018 Visit Plan: Edema/Lymphedema [...] of over-medication. 01/14/2018 Appointment: Araceli Silva WPtel: [facility] [facility] (15 min) Moderate 01/14/2018 Patient Education: Patient [...] oxycodone scheduled. 12/24/2017 Appointment: Araceli Silva WPtel: [phone] [facility] (30 min) Complex 12/24/2017 Patient Education: Patient [...] output. 11/30/2017 Appointment: Araceli Silva WPtel: [phone] [facility] (15 min) Moderate 11/30/2017 Patient Education: Patient [...] over-medication. 11/10/2017 Appointment: Araceli Silva WPtel: [phone] [facility] (15 min) Moderate 11/10/2017 Patient Education: Patient [...] hands/fingers. We will contact [facility] in [place] for paperwork regarding the scooter. 10/29/2017 Appointment: Araceli Silva WPtel: [phone] [facility] (15 min) Moderate 10/29/2017 Patient Education: Patient [...] time. 10/20/2017 Appointment: Araceli Silva WPtel: [phone] [facility] (30 min) Complex 10/20/2017 Patient Education: Patient [...] today. 09/29/2017 Appointment: Araceli Silva WPtel: [phone] [facility] [place] (15 min) Moderate 09/29/2017 Patient Education: [...] Summary Completed 08/21/2017 Appointment: Araceli Silva WPtel: [facility] (15 min) Moderate 08/20/2017 Visit Plan: Hemarthrosis shoulders - 250mL from left shoulder and 100mL from right shoulder with 1ml kenalog injected into right and left shoulders - Left and right shoulder pain and swelling, swelling into arms and left breast -pt to continue with use of compression sleeves. [id number] sep 2018 bristol 2ml kenalog 08/12/2017 Appointment: Araceli Silva WPtel: [phone] [facility] (15 min) Moderate 08/12/2017 Patient Education: Patient [...] peripheral edema. 08/05/2017 Appointment: Araceli Silva WPtel: [facility] [facility] (15 min) Moderate 08/05/2017 Patient Education: Patient [...] peripheral edema. 07/23/2017 Appointment: Araceli Silva WPtel: [address] [place], [place] [address] (15 min) Moderate 07/23/2017 Patient Education: Patient [...] monitor symptoms. 07/09/2017 Appointment: Araceli Silva WPtel: [facility] [facility] (15 min) Moderate 07/09/2017 Patient Education: Patient Medication Summary Completed 07/09/2017 Referral: [facility] WPt[facility]: Referral Initiated 07/08/2017 Visit [...] monitor symptoms. 07/01/2017 Appointment: Araceli Silva WPtel: [facility] [facility] (15 min) Moderate 07/01/2017 Patient Education: Patient Medication Summary Completed 07/01/2017 Visit Plan: Chronic Pain Syndrome - pt has chronic pain - has been maintained on current medications, has not sought out other medications , only uses PRN pain medications as directed, and understands the consequences of over-medication. 06/24/2017 Appointment: Araceli Silva WPtel: [address] [place], [place] [phone] (15 min) Moderate 06/24/2017 Patient Education: Patient [...] peripheral edema. 06/17/2017 Appointment: Araceli Silva WPtel: [phone] [facility] [place] (30 min) Complex 06/17/2017 Patient Education: Patient Medication Summary Completed 06/17/2017 Appointment: Araceli Silva WPtel: [phone] [facility] [place] (15 min) Moderate 06/08/2017 Care Plan: Referral Order SNOMED-CT : 049831774 Pending 06/02/2017 Visit Plan: Left and right [...] peripheral edema. 06/01/2017 Appointment: Mar[facility] Gee [facility]Ptel: [phone] [facility] [place] (30 min) Complex 06/01/2017 [...] from shoulder 04/02/2017 Appointment: Araceli Silva WPtel: [phone] [facility] [place] (15 min) Moderate 04/02/2017 Patient Education: [...] upset. 03/12/2017 Appointment: Araceli Silva WPtel: [phone] [facility] (15 min) Moderate 03/12/2017 Patient Education: Patient [...] check ROMIE. 01/08/2017 Appointment: Araceli Silva WPtel: [phone] [facility] (15 min) Moderate 01/08/2017 Patient Education: [...] Remicaide. 12/08/2016 Appointment: Araceli Silva WPtel: [phone] [facility] (15 min) Moderate 12/08/2016 Patient Education: Patient [...] for now 11/17/2016 Appointment: Araceli Silva WPtel: [phone] [facility] (15 min) Moderate 11/17/2016 Patient Education: Patient [...] of over-medication. 11/10/2016 Appointment: Maric[facility] Gee WPtel: [phone] [facility] (30 min) Complex 11/10/2016 Patient Education: Patient [...] steroids, immunosuppression. 11/05/2016 Appointment: Araceli Silva WPtel: [phone] [facility] (15 min) Moderate 11/05/2016 Patient Education: Patient [...] cbc today. 10/07/2016 Appointment: Araceli Silva WPtel: [facility] [facility] (15 min) Moderate 10/07/2016 Patient Education: Patient Medication Summary Completed 10/07/2016 Care Plan: Referral Order SNOMED-CT : [id number] Pending 10/07/2016 Care Plan: Referral Order SNOMED-CT : [id number] Pending 10/07/2016 Visit Plan: Hemarthrosis -right shoulder-only able to drain 5ml of bloody drainage-unable to give oral steroids due to recent GI bleed -will give kenalog injection today in the office-discussed getting OSMO patch 10/02/2016 Appointment: Ila Kennedy WPtel: [facility] [phone] [place] (30 min) Complex 10/02/2016 Patient Education: Patient Medication Summary Completed 10/02/2016 Appointment: Araceli Silva WPtel: [facility] [facility] [place] (15 min) Moderate 09/23/2016 Appointment: Araceli Silva WPtel: [facility] [facility] [place] (15 min) Moderate 09/17/2016 Visit Plan: Sacroiliitis - back exercises discussed with the patient, pt to continue with anti-inflammatories. Pt is to call if the symptoms do not improve or if they worsen. Kenalog injection today in the office. 09/12/2016 Appointment: Ila Kennedy WPtel: [facility] [phone] (15 min) Moderate 09/12/2016 Patient Education: Patient [...] Injection of kenalog 1mL - 40mg - UpDroid - lot #[id number] , expires oct 2017 Chronic Pain Syndrome - pt has chronic pain - has been maintained on current medications, has not sought out other medications, only uses PRN pain medications as directed, and understands the consequences of over-medication. 09/08/2016 Appointment: Araceli Silva WPtel: [facility] [facility] (15 min) Moderate 09/08/2016 Patient Education: [...] WPtel: [facility] [facility] (15 min) Moderate 08/26/2016 Patient Education: [...] WPtel: [facility] [facility] (15 min) Moderate 08/13/2016 Appointment: Araceli Silva WPtel: [facility] [facility] (15 min) Moderate 08/06/2016 Visit Plan: [...] the daytime. 07/30/2016 Appointment: Araceli Silva WPtel: [address] [place], [place] [address] (15 min) Moderate 07/30/2016 Patient Education: Patient Medication Summary Completed 07/30/2016 Visit Plan: Left shoulder pain - improving - pt is to notify clinic if symptoms do not improve, if they worsen, or with any questions or concerns. Nocturia - will give samples, pt is to notify clinic if symptoms do not improve. 07/14/2016 Appointment: Maricel Gee WPtel: [facility] [place] (30 min) Complex 07/14/2016 Patient Education: [...] any dyspnea. 07/04/2016 Appointment: Maric[facility] Gee WPtel: [phone] [facility] (30 min) Complex 07/04/2016 Patient [...] over- medication. 06/26/2016 Appointment: Araceli Silva WPtel: [facility] (15 min) Moderate 06/26/2016 Patient Education: Patient [...] of over-medication. 05/28/2016 Appointment: Araceli Silva WPtel: [facility] [place] (15 min) Moderate 05/28/2016 Patient Education: Patient Medication Summary Completed 05/28/2016 Patient Education: Hypertension Completed 05/28/2016 Appointment: Araceli Silva WPtel: [facility]5 [facility] [place] (15 min) Moderate 05/12/2016 Appointment: Araceli Silva WPtel: [facility]5 [facility] [place] (15 min) Moderate 04/15/2016 Appointment: Araceli Silva WPtel: [facility] [place] (30 min) Complex 03/25/2016 Visit Plan: [...] week then stop the premarin. 03/18/2016 Appointment: Araecli Silva WPtel: [phone] [facility] [place] (30 min) Complex 03/18/2016 Patient Education: Patient Medication Summary Completed 03/18/2016 Appointment: Araceli Silva WPtel: [facility] [facility] (15 min) Moderate 02/19/2016 Visit Plan: [...] of over-medication. 01/29/2016 Appointment: Araceli Silva WPtel: [phone] [facility] [place] (15 min) Moderate 01/29/2016 Patient Education: Patient Medication Summary Completed 01/29/2016 Visit Plan: Discussed MRI of the neck - pt is interested in doing this - however, not prior to changing her medication first to see if this helps her pain 01/01/2016 Appointment: Araceli Silva WPtel: [facility] [place] (15 min) Moderate 01/01/2016 Patient Education: Patient Medication Summary Completed 01/01/2016 Patient Education: Hypertension Completed 01/01/2016 Appointment: Araceli Silva WPtel: [phone] [facility] [place] (15 min) Moderate 12/03/2015 Visit [...] or nonhealing. 11/01/2015 Appointment: Ila Kennedy WPtel: [phone] [facility] [place] (15 min) Moderate 11/01/2015 Patient Education: Patient Medication Summary Completed 11/01/2015 Visit Plan: Chronic Pain Syndrome - pt has chronic pain - has been maintained on current medications, has not sought out other medications , only uses PRN pain medications as directed, and understands the consequences of over-medication. Muscle spasms - recommended muscle rub. 09/04/2015 Appointment: [facility]el[phone] [facility] [place] (15 min) Moderate 09/04/2015 Patient Education: Patient Medication Summary Completed 09/04/2015 Visit Plan: Ecchymosis/hematoma - improving - discussed natural progression of hematomas - watchful waiting. 2015 Appointment: Araceli Silva WPtel: [phone] [facility] [place] (15 min) Moderate 2015 Patient Education: Patient Medication Summary Completed 2015 Visit Plan: Cellulitis - continue with oral antibiotics as previously directed, return to clinic as previously directed, call for acute change in symptoms, worsening redness, warmth, discharge. 07/18/2015 App[facility]ment: [phone] [id number] [place] (30 min) Complex 07/18/2015 Patient Education: [...] center. 07/02/2015 Appointment: [facility]ac[facility] Silva [facility]Ptel: [phone] [facility] [place] (15 min) Moderate 07/02/2015 Patient Education: [...] with ambulation. 04/09/2015 Appointment: Araceli Silva WPtel: [address] [place], [place] [id number] (15 min) Moderate 04/09/2015 Patient Education: Patient [...] supplementation. 02/08/2015 Appointment: [facility] Silva [facility]el[phone] (15 min) Moderate 02/08/2015 Patient Education: Patient [...] evening. 12/11/2014 Appointment: [facility] Silva [facility]Ptel: [phone] [facility] (15 min) Moderate 12/11/2014 Patient Education: Patient [...] - improved. 11/09/2014 Appointment: Araceli Silva WPtel: [address] [place], [place] [phone] (15 min) Moderate 11/09/2014 Patient Education: Patient Medication Summary Completed 11/09/2014 Patient Education: Hypertension Completed 11/09/2014 Visit Plan: Leg pain/cellulitis of leg - start on the doxycycline twice daily - take this x 2 weeks, if the symptoms in your leg/ thigh are not completely resolved, there is a refill that is available. start on a probiotic one pill daily (Portafare or [employer]) this will help prevent the development of a bad type of diarrhea that can occur when taking antibiotics. Ulcer of toe - improving. 10/23/2014 Appointment: Araceli Silva WPtel: [address] [place], [place] [phone] (15 min) Moderate 10/23/2014 Patient Education: Patient Medication Summary Completed 10/23/2014 Visit Plan: Ulcer - keep lesion covered, antibiotic ointment to be used, monitor - call if redness increases or starts streaking up the foot. 10/16/2014 Appointment: Araceli Silva WPtel: [address] [place], [place] [phone] (15 min) Moderate 10/16/2014 Patient Education: Patient [...] to reduce peripheral edema. 09/14/2014 Appointment: Araceli Silvatel: [phone] [facility] Follow up 09/14/2014 Patient Education: Patient [...] medication. 07/12/2014 Appointment: [facility] Silva [facility]Ptel: [phone] [facility] [place] ([place] New Patient 07/12/2014 Patient Education: Patient Medication Summary Completed 07/12/2014 Patient Education: Hypertension Completed 07/12/2014 Referral: Dr Virgen Referral Completed Referral: External, Ordering Provider Referral Completed Referral: [facility] WPtel: Referral Initiated Instructions Comment Gatorade or [employer] rehydration solution: 24 [...] of stomach upset or stomach pain. . Fatigue and Anemia - recommended stat labs - CBC showed Hgb of 8.3 - iron panel added to blood in labs - will wait on those reports - but will have pt get a blood transfusion tomorrow. Will possibly get pt in for iron transfusion. Edema - increase lasix x 10 days to bid, then use prn swelling. Check magnesium level . Edema - pt has been advised [...] Dr. Ambrocio's associate. Continue with steroids, immunosuppression. start on the doxycycline twice daily - take this x 2 weeks , if the symptoms in your leg/thigh are not completely resolved, there is a refill that is available. start on a probiotic one pill daily (Portafare or [employer]) this will help prevent the development of a bad type of diarrhea that can occur when taking antibiotics. . Leg pain/cellulitis of leg - start on the doxycycline twice daily - take this x 2 weeks, if the symptoms in your leg/thigh are not completely resolved, there is a refill that is available. start on a probiotic one pill daily (Portafare or [employer]) this will help prevent the development of [...] Injection of kenalog 1mL - 40mg - UpDroid - lot #[id number] , expires oct 2017 Chronic Pain Syndrome [...] understands the consequences of over- medication. . Hemarthrosis - pt was prepped and draped in sterile fashion - sterile 20 gauge needle used to access joint and drain via arthrocentesis - over 55mL of blood from joint. Dressed with pressure dressing and bandaid - advised to call if not improving or repeat drainage needed. . Tick Bite - pt given script [...] prednisone to help decrease stomach upset. . Left shoulder pain - ecchymosis of the shoulder - Pt denies trauma - will check x-ray - will treat as indicated, pt is to notify clinic if symptoms do not improve, if they worsen, or with any questions or concerns. Pt is to go to the ER if shoulder becomes, red or warm to the touch, or with any dyspnea. . Edema-worsening- pt has persistent worsening of [...] hands/fingers. We will contact [facility] [employer] in [place] for paperwork regarding the scooter. . Hypertension [...] help to decrease the bladder spasms . Chronic Pain Syndrome - pt has [...] 6 small meals during the daytime. . Rheumatoid arthritis of shoulders, Severe edema [...] to continue with use of compression sleeves. [id number] sep 2018 bristol 2ml kenalog . Edema/Lymphedema [...] and understands the consequences of over-medication. . Discussed MRI of the neck - pt is interested in doing this - however, not prior to changing her medication first to see if this helps her pain . Hypertension - well controlled - continue [...] with supportive care at this time. . Lymphedema of upper and lower extremities [...] and understands the consequences of over-medication. . Sacroiliitis - back exercises discussed with the patient , pt to continue with anti-inflammatories. Pt is to call if the symptoms do not improve or if they worsen. Kenalog injection today in the office. two old goats muscle rub from [employer] [facility]. . Chronic Pain Syndrome [...] the pt through the cancer center/surgery center. OKAY FOR ROBITUSSIN DM TO USE NEEDED [...] directed, and understands the consequences of over-medication. [id number] with lasix/metolazone -if swelling/weight increase, okay to [...] to further attempt to reduce peripheral edema. alaway or zatador eye drops for allergies [...]
[2018-06-03 16:25] VITALS: BP 140/80
--- OUTSIDE RECORDS SUMMARY | 2018-06-03 16:30 | XMS REPORT | CCD ---
Author Author [facility] Organization [facility] Address [address] [place] [address] Phone Care Team Providers Care Operating Room Orderly Name Role Phone PP Unavailable CCM Unavailable Summary Purpose Interface Exchange Insurance Providers Payer name Policy type / Coverage type Covered green party ID Effective Begin Date Effective End Date [place] [employer] Medicare Part B [id number] 2017 Unknown AET[employer] Medicare Part B [id number] Unknown Family history Father Diagnosis Age At [...] Unknown Retired 07/12/[address]: 5593853 Quit over 10 years ago 1967 07/12/2014 [...] Instructions ondansetron 4 mg disintegrating tablet RxNorm: 877434 1 Tablet(s) PO TID as needed nausea and vomitting 04/21/2018 Active ondansetron 4 mg disintegrating tablet RxNorm: 506196 1 Tablet(s) PO TID as needed nausea and vomitting 04/21/2018 Active promethazine 25 mg tablet RxNorm: 328408 1 Tablet(s) PO TID as needed nausea and vomitting 04/21/2018 05/20/2018 Active promethazine 25 mg tablet RxNorm: 536864 1 Tablet(s) PO TID as needed nausea and vomitting 04/21/2018 04/25/2018 Active promethazine 25 mg/mL injection solution RxNorm: 750547 Milliliter(s) Inj 04/21/2018 04/21/2018 Inactive metolazone 10 mg tablet RxNorm: 711752 1 Tablet(s) PO every other day uncontrolled edema 04/08/2018 12/03/2018 Active fentanyl 100 mcg/hr transdermal patch RxNorm: 372209 1 Patch TD Q72H use with 25mcg/hr patch 04/07/2018 05/06/2018 Active fentanyl 25 mcg/hr transdermal patch RxNorm: 324637 1 Patch TD Q72H use with 100mcg patch for a total of 125mcg daily 04/07/2018 05/06/2018 Active potassium chloride ER 10 mEq tablet,extended release(part/ cryst) RxNorm: 0619390 2 Tablet(s) PO TID 03/30/2018 07/27/2018 Active oxycodone 30 mg tablet RxNorm: 5274630 1/2 Tablet(s) PO Q6 05/15/2018 Active fentanyl 25 mcg/hr transdermal patch RxNorm: 825898 1 Patch TD Q72H use with 100mcg patch for a total of 125mcg daily 03/17/2018 04/06/2018 Inactive Lasix 40 mg tablet RxNorm: 684108 Tablet(s) PO TAKE 1 TABLET BY MOUTH TWICE DAILY 03/04/2018 No Stop Date Active fentanyl 100 mcg/hr transdermal patch RxNorm: 824094 1 Patch TD Q72H use with 25mcg/hr patch 03/03/2018 04/01/2018 Inactive potassium chloride ER 10 mEq capsule,extended release RxNorm: 855030 2 Capsule(s) PO TID 03/03/2018 03/29/2018 Inactive albuterol sulfate 2.5 mg/3 mL (0.083 %) solution for nebulization RxNorm: 071215 3 Milliliter(s) INH Q4 PRN 02/18/2018 No Stop Date Active cefdinir 300 mg capsule RxNorm: 572902 1 Capsule(s) PO BID 02/24/2018 Inactive cefdinir 300 mg capsule RxNorm: 456286 1 Capsule(s) PO BID 02/17/2018 Inactive Flonase Allergy Relief 50 mcg/actuation nasal spray, suspension RxNorm: 0266393 2 [place] NASAL daily 02/12/20182017 Inactive Zithromax Z-Humberto 250 mg tablet RxNorm: 069325 1 Tablet(s) PO UD 02/12/2018 02/16/2018 Inactive Lomotil 2.5 mg-0.025 mg tablet RxNorm: 8600010 1 Tablet(s) PO BID PRN 02/09/2018 No Stop Date Active fentanyl 25 mcg/hr transdermal patch RxNorm: 248335 1 Patch TD Q72H use with 100mcg patch for a total of 125mcg daily 02/09/2018 03/10/2018 Inactive oxycodone 30 mg tablet RxNorm: 1306880 1/2 Tablet(s) PO Q6 03/14/2018 Inactive metolazone 10 mg tablet RxNorm: 965662 1 Tablet(s) PO QAM as needed uncontrolled edema 01/14/2018 03/14/2018 Inactive fentanyl 100 mcg/hr transdermal patch RxNorm: 214870 1 Patch TD Q72H use with 25mcg/hr patch 01/14/2018 02/12/2018 Inactive fentanyl 25 mcg/hr transdermal patch RxNorm: 843877 1 Patch TD Q72H use with 100mcg patch for a total of 125mcg daily 01/14/2018 02/08/2018 Inactive metolazone 10 mg tablet RxNorm: 335756 1 Tablet(s) PO every other day as needed uncontrolled edema 01/07/2018 01/13/2018 Inactive metolazone 10 mg tablet RxNorm: 846165 1 Tablet(s) PO every other day as needed uncontrolled edema 01/07/2018 01/06/2018 Inactive Cipro 500 mg tablet RxNorm: 107743 1 Tablet(s) PO BID 201701/05/2018 Inactive Cipro 500 mg tablet RxNorm: 396826 1 Tablet(s) PO BID 201701/15/2018 Inactive Cardizem CD 360 mg capsule,extended release RxNorm: 713434 1 Capsule(s) PO daily 01/05/2018 05/04/2018 Active potassium chloride ER 10 mEq tablet,extended release(part/ cryst) RxNorm: 1931623 2 Capsule(s) PO TID when taking lasix 01/05/2018 05/04/2018 Active potassium chloride ER 10 mEq capsule,extended release RxNorm: 230179 Capsule(s) TAKE 1 CAPSULE BY MOUTH TWICE DAILY WHEN TAKING LASIX (FUROSEMIDE) 11/27/2017 03/02/2018 Inactive potassium chloride ER 10 mEq capsule,extended release RxNorm: 509793 Capsule(s) TAKE 1 CAPSULE BY MOUTH TWICE DAILY WHEN TAKING LASIX (FUROSEMIDE) 11/27/2017 11/26/2017 Inactive fentanyl 25 mcg/hr transdermal patch RxNorm: 736077 1 Patch TD Q72H use with 100mcg patch for a total of 125mcg daily 11/27/2017 12/26/2017 Inactive bumetanide 0.5 mg tablet RxNorm: 912673 1 Tablet(s) PO daily 12/23/2017 Inactive in the afternoon x 3 days then as needed per Dr Silva fentanyl 100 mcg/hr transdermal patch RxNorm: 655090 1 Patch TD Q72H use with 25mcg/hr patch 11/27/2017 12/26/2017 Inactive oxycodone 30 mg tablet RxNorm: 2062789 1/2 Tablet(s) PO Q6 12/27/2017 Inactive fentanyl 100 mcg/hr transdermal patch RxNorm: 053255 1 Patch TD Q72H use with 25mcg/hr patch 10/29/2017 11/26/2017 Inactive Lasix 20 mg tablet RxNorm: 206837 TAKE 1 TABLET BY MOUTH TWICE DAILY 10/29/2017 03/03/2018 Inactive fentanyl 25 mcg/hr transdermal patch RxNorm: 983635 1 Patch TD Q72H use with 100mcg patch for a total of 125mcg daily 10/29/2017 11/26/2017 Inactive pantoprazole 40 mg tablet,delayed release RxNorm: 429282 Tablet(s) Take 1 tablet by mouth daily 10/21/2017 04/18/2018 Inactive - Ref: [id number] potassium chloride ER 10 mEq capsule,extended release RxNorm: 963387 TAKE 1 CAPSULE BY MOUTH TWICE DAILY WHEN TAKING LASIX (FUROSEMIDE) 10/09/2017 11/26/2017 Inactive fentanyl 25 mcg/hr transdermal patch RxNorm: 530594 1 Patch TD Q72H use with 100mcg patch for a total of 125mcg daily 10/01/2017 10/28/2017 Inactive fentanyl 100 mcg/hr transdermal patch RxNorm: 860681 1 Patch TD Q72H use with 25mcg/hr patch 10/01/2017 10/28/2017 Inactive potassium chloride ER 10 mEq tablet,extended release(part/ cryst) RxNorm: 0078328 1 Capsule(s) PO BID when taking lasix 09/22/2017 01/04/2018 Inactive fentanyl 100 mcg/hr transdermal patch RxNorm: 337655 1 Patch TD Q72H use with 25mcg/hr patch 08/31/2017 09/29/2017 Inactive Kenalog 40 mg/mL suspension for injection RxNorm: 8119083 1 Milliliter(s) Inj 08/31/2017 08/31/2017 Inactive fentanyl 25 mcg/hr transdermal patch RxNorm: 755362 1 Patch TD Q72H use with 100mcg patch for a total of 125mcg daily 08/31/2017 09/29/2017 Inactive oxycodone 30 mg tablet RxNorm: 1867061 1/2 Tablet(s) PO Q6 04/201710/28/2017 Inactive cyanocobalamin (vit B-12) 1,000 mcg/mL injection solution RxNorm: 744842 1 Milliliter(s) Inj monthly 08/21/201708/15 Active please provide her with syringe/needle for injection cyanocobalamin (vit B-12) 1,000 mcg/mL injection solution RxNorm: 793203 1 Milliliter(s) Inj monthly 08/21/201708/20 Inactive please provide her with syringe/needle for injection Kenalog 40 mg/mL suspension for injection RxNorm: 7431184 2 Milliliter(s) Inj 1mL in each shoulder 08/21/2017 08/21/2017 Inactive cyanocobalamin (vit B-12) 1,000 mcg/mL injection solution RxNorm: 242496 1 Milliliter(s) Inj monthly 08/21/201708/20 Inactive please provide her with syringe/needle for injection Kenalog 40 mg/mL suspension for injection RxNorm: 5039620 2 Milliliter(s) Inj UD 08/12/2017 08/12/2017 Inactive fentanyl 25 mcg/hr transdermal patch RxNorm: 476851 1 Patch TD Q72H use with 100mcg patch for a total of 125mcg daily 08/05/2017 08/30/2017 Inactive fentanyl 100 mcg/hr transdermal patch RxNorm: 003728 1 Patch TD Q72H use with 25mcg/hr patch 08/05/2017 08/30/2017 Inactive Kenalog 40 mg/mL suspension for injection RxNorm: 7917269 2 Milliliter(s) Inj 1mL per shoulder 08/05/2017 08/05/2017 Inactive clindamycin HCl 150 mg capsule RxNorm: 913891 1 Capsule(s) PO QID Dr Shultz prescribed 07/23/2017 07/29/2017 Inactive prednisone 5 mg tablet RxNorm: 842908 1 Tablet(s) PO daily 11/201707/03/2018 Active fentanyl 25 mcg/hr transdermal patch RxNorm: 910518 1 Patch TD Q72H use with 100mcg patch for a total of 125mcg daily 07/01/2017 07/30/2017 Inactive Lasix 20 mg tablet RxNorm: 243119 1 Tablet(s) PO BID 201710/28/2017 Inactive fentanyl 100 mcg/hr transdermal patch RxNorm: 083813 1 Patch TD Q72H use with 25mcg/hr patch 07/01/2017 07/30/2017 Inactive potassium chloride ER 10 mEq capsule,extended release RxNorm: 831287 1 Capsule(s) PO BID when taking lasix 07/01/20172017 Inactive oxycodone 30 mg tablet RxNorm: 1572100 1/2 Tablet(s) PO Q6 08/22/2017 Inactive fentanyl 100 mcg/hr transdermal patch RxNorm: 213104 1 Patch TD Q72H use with 25mcg/hr patch 05/07/2017 06/05/2017 Inactive fentanyl 25 mcg/hr transdermal patch RxNorm: 644485 1 Patch TD Q72H use with 100mcg patch for a total of 125mcg daily 05/07/2017 06/05/2017 Inactive fentanyl 100 mcg/hr transdermal patch RxNorm: 413845 1 Patch TD Q72H 04/08/2017 05/06/2017 Inactive fentanyl 25 mcg/hr transdermal patch RxNorm: 517465 1 Patch TD Q72H use with 100mcg patch for a total of 125mcg daily 04/08/2017 05/06/2017 Inactive Kenalog 40 mg/mL suspension for injection RxNorm: 0765845 1.5 Milliliter(s) Inj 04/02/2017 04/02/2017 Inactive fentanyl 100 mcg/hr transdermal patch RxNorm: 268092 1 Patch TD Q72H 03/12/2017 04/07/2017 Inactive fentanyl 25 mcg/hr transdermal patch RxNorm: 438996 1 Patch TD Q72H use with 100mcg patch for a total of 125mcg daily 03/12/2017 04/07/2017 Inactive oxycodone 30 mg tablet RxNorm: 7097321 1/2 Tablet(s) PO Q6 09/201704/07/2017 Inactive cyanocobalamin (vit B-12) 1,000 mcg/mL injection syringe RxNorm: 218201 1 Milliliter(s) Inj monthly 02/16/2017 No Stop Date Active please provide with supplys needed for injection fentanyl 100 mcg/hr transdermal patch RxNorm: 671561 1 Patch TD Q72H 02/06/2017 03/07/2017 Inactive Myrbetriq 50 mg tablet,extended release RxNorm: 2226627 1 Tablet(s) PO QPM 12/11/2016 07/22/2017 Inactive oxycodone 30 mg tablet RxNorm: 4999659 1/2 Tablet(s) PO Q6 10/201601/06/2017 Inactive naproxen 500 mg tablet RxNorm: 317721 1 Tablet(s) PO BID Take 1 tablet by mouth two times daily as needed 12/08/201607/08 Inactive - First Attempt Ref: [id number] Myrbetriq 50 mg tablet,extended release RxNorm: 5923973 1 Tablet(s) PO QPM 11/17/2016 12/10/2016 Inactive fentanyl 100 mcg/hr transdermal patch RxNorm: 273788 1 Patch TD Q72H 11/12/2016 12/11/2016 Inactive Vesicare 10 mg tablet RxNorm: 327526 1 Tablet(s) PO QPM 201611/18/2016 Inactive oxycodone 10 mg tablet RxNorm: 2941208 1-2 Tablet(s) PO Q4 PRN as needed to take between 30mg dose if needed for extra pain control 201612/07/2016 Inactive fentanyl 75 mcg/hr transdermal patch RxNorm: 452244 1 TD Q72H 10/22/2016 11/10/2016 Inactive oxycodone 10 mg tablet RxNorm: 0070796 1-2 Tablet(s) PO Q4 PRN as needed to take between 30mg dose if needed for extra pain control 201611/04/2016 Inactive Kenalog 40 mg/mL suspension for injection RxNorm: 7231229 1 Milliliter(s) Inj 10/02/2016 10/02/2016 Inactive Kenalog 40 mg/mL suspension for injection RxNorm: 4205678 1 Milliliter(s) Inj 09/12/2016 09/12/2016 Inactive cyclobenzaprine 5 mg tablet RxNorm: 368149 1 Tablet(s) PO Q8 as needed muscle spasms 09/11/2016 07/22/2017 Inactive prednisone 10 mg tablets in a dose pack RxNorm: 607704 1 Tablet(s) PO UD 09/09/2016 06/23/2017 Inactive potassium chloride ER 10 mEq capsule,extended release RxNorm: 432826 1 Capsule(s) PO BID as needed when taking lasix 08/26/2016 06/30/2017 Inactive Lasix 20 mg tablet RxNorm: 773849 1 Tablet(s) PO BID daily x 10 days then as needed edema 08/26/2016 12/23/2016 Inactive naproxen 500 mg tablet RxNorm: 662219 Take 1 tablet by mouth two times daily as needed 08/18/2016 11/15/2016 Inactive - First Attempt Ref: [id number] Lasix 20 mg tablet RxNorm: 299913 1 Tablet(s) PO QAM daily x 10 days then as needed edema 08/18/2016 08/25/2016 Inactive Vesicare 5 mg tablet RxNorm: 854173 1 Tablet(s) PO QPM 201611/04/2016 Inactive potassium chloride ER 10 mEq capsule,extended release RxNorm: 120144 1 Capsule(s) PO QAM as needed when taking lasix 08/18/2016 08/25/2016 Inactive Myrbetriq 25 mg tablet,extended release RxNorm: 8810321 1 Tablet(s) PO QHS 07/14/2016 07/29/2016 Inactive pantoprazole 40 mg tablet,delayed release RxNorm: 351104 Take 1 tablet by mouth daily 06/30/2016 12/26/2016 Inactive - Ref: [id number] Embeda 20 mg-0.8 mg capsule, extend release, oral only RxNorm: 946565 1 Capsule(s ) PO daily 06/04/2016 06/03/2016 Inactive Embeda 20 mg-0.8 mg capsule, extend release, oral only RxNorm: 411939 1 Capsule(s ) PO daily 06/04/2016 07/01/2016 Inactive oxycodone 10 mg tablet RxNorm: 1090847 1 Tablet(s) PO QID as needed to take between 30mg dose if needed for extra pain control 201606/10/2016 Inactive oxycodone 30 mg tablet RxNorm: 3686950 1 Tablet(s) PO Q6 201611/04/2016 Inactive cyanocobalamin (vit B-12) 1,000 mcg/mL injection solution RxNorm: 783069 1 Milliliter(s) Inj monthly 02/22/201602/15 Inactive she also needs syringes/ needles for this solution QS oxycodone 30 mg tablet RxNorm: 4490454 1 Tablet(s) PO Q6 201503/19/2016 Inactive oxycodone 10 mg tablet RxNorm: 8048970 1 Tablet(s) PO QID as needed to take between 30mg dose if needed for extra pain control 201503/19/2016 Inactive oxycodone 10 mg tablet RxNorm: 9408923 1 Tablet(s) PO QID as needed to take between 30mg dose if needed for extra pain control 201502/18/2016 Inactive oxycodone 30 mg tablet RxNorm: 6989001 1 Tablet(s) PO Q6 201502/18/2016 Inactive pantoprazole 40 mg tablet,delayed release RxNorm: 488084 Take 1 tablet by mouth daily 01/22/2016 06/29/2016 Inactive - First Attempt Ref: [id number] oxycodone 30 mg tablet RxNorm: 5355564 1 Tablet(s) PO Q6 201501/28/2016 Inactive oxycodone 10 mg tablet RxNorm: 3117311 1 Tablet(s) PO QID as needed take between 20mg dose if needed for extra pain control 11/07/2015 12/06/2015 Inactive oxycodone 20 mg tablet RxNorm: 0761010 1 Tablet(s) PO Q6 as needed 11/07/2015 12/31/2015 Inactive doxycycline hyclate 100 mg tablet RxNorm: 921386 1 Tablet(s) PO BID 11/01/2015 11/10/2015 Inactive potassium chloride ER 10 mEq capsule,extended release RxNorm: 754683 1 Capsule(s) PO TIW as needed when taking lasix 09/04/2015 08/17/2016 Inactive Voltaren 1 % topical gel RxNorm: 563867 2 Gram(s) TOP QID 08/2909/03/2015 Inactive pa approved Voltaren 1 % topical gel RxNorm: 208004 2 Gram(s) TOP QID 08/0808/29/2015 Inactive naproxen 500 mg tablet RxNorm: 351685 1 Tablet(s) PO BID 201508/17/2016 Inactive naproxen 500 mg tablet RxNorm: 227445 1 Tablet(s) PO BID 201508/08/2015 Inactive doxycycline hyclate 100 mg tablet RxNorm: 290426 1 Tablet(s) PO BID do not take calcium/vitamin d while on antibiotic 07/18/2015 07/31/2015 Inactive Vitamin D2 50,000 unit capsule RxNorm: 158048 1 Capsule(s) PO QW 07/02/2015 11/18/2015 Inactive Premarin 0.3 mg tablet RxNorm: 863406 1 Tablet(s) PO daily 12/201505/09/2015 Inactive Premarin 0.3 mg tablet RxNorm: 537306 1 Tablet(s) PO daily 12/201503/17/2016 Inactive simvastatin 40 mg tablet RxNorm: 040702 1 Tablet(s) PO daily 03/17/2016 Inactive spironolactone 25 mg tablet RxNorm: 972574 TAKE ONE TABLET BY MOUTH DAILY 05/07/2015 05/27/2016 Inactive potassium chloride ER 10 mEq capsule,extended release RxNorm: 282694 1 Capsule(s) PO TIW as needed when taking lasix 04/17/2015 09/03/2015 Inactive alendronate 70 mg tablet RxNorm: 789754 1 Tablet(s) PO weekly QW 04/17/2015 07/01/2015 Inactive Vitamin D2 50,000 unit capsule RxNorm: 702599 1 Capsule(s) PO QW 03/30/2015 06/27/2015 Inactive Vitamin D2 50,000 unit capsule RxNorm: 879777 1 Capsule(s) PO QW 03/21/2015 03/29/2015 Inactive cyanocobalamin (vit B-12) 1,000 mcg/mL injection solution RxNorm: 086877 1 Milliliter(s) Inj monthly 03/19/201502/20 Inactive cyanocobalamin (vit B-12) 1,000 mcg/mL injection solution RxNorm: 155892 1 Milliliter(s) Inj monthly 03/16/201503/18 Inactive cyanocobalamin (vit B-12) 1,000 mcg/mL injection solution RxNorm: 183286 1 Milliliter(s) Inj monthly 03/16/201503/15 Inactive pantoprazole 40 mg tablet,delayed release RxNorm: 720613 1 Tablet(s) PO daily 03/05/2015 01/21/2016 Inactive Lasix 20 mg tablet RxNorm: 256323 1 Tablet(s) PO TIW as needed edema 02/08/2015 02/02/2016 Inactive oxycodone 10 mg tablet RxNorm: 1294079 1 Tablet(s) PO QID as needed take between 20mg dose if needed for extra pain control 11/09/2014 12/08/2014 Inactive oxycodone 20 mg tablet RxNorm: 5659466 1 Tablet(s) PO Q6 as needed 10/25/2014 11/06/2015 Inactive doxycycline hyclate 100 mg tablet RxNorm: 651643 1 Tablet(s) PO BID 10/23/2014 11/19/2014 Inactive Cipro 500 mg tablet RxNorm: 681293 1 Tablet(s) PO BID 201410/16/2014 Inactive Cipro 500 mg tablet RxNorm: 738740 1 Tablet(s) PO BID 201410/09/2014 Inactive oxycodone 20 mg tablet RxNorm: 0427965 1 Tablet(s) PO Q6 as needed 09/25/2014 10/24/2014 Inactive Lasix 20 mg tablet RxNorm: 123693 1 Tablet(s) PO TIW as needed edema 09/14/2014 01/11/2015 Inactive potassium chloride ER 10 mEq capsule,extended release RxNorm: 395252 1 Capsule(s) PO TIW as needed when taking lasix 09/14/2014 01/11/2015 Inactive doxycycline hyclate 100 mg tablet RxNorm: 063464 1 Tablet(s) PO BID 09/05/2014 09/14/2014 Inactive doxycycline hyclate 100 mg tablet RxNorm: 013214 1 Tablet(s) PO BID 09/05/2014 09/04/2014 Inactive oxycodone 20 mg tablet RxNorm: 2967425 1 Tablet(s) PO Q6 as needed 08/29/2014 09/24/2014 Inactive spironolactone 25 mg tablet RxNorm: 962742 1 Tablet(s) PO daily 08/11/2014 03/08/2015 Inactive oxycodone 20 mg tablet RxNorm: 3912869 1 Tablet(s) PO Q6 as needed 08/02/2014 08/28/2014 Inactive Vitamin D3 2,000 unit tablet RxNorm: 441997 1 Tablet(s) PO daily 07/14/2014 No Stop Date Active Vitamin D2 50,000 unit capsule RxNorm: 448272 1 Capsule(s) PO QW 07/14/2014 10/11/2014 Inactive Vitamin D2 50,000 unit capsule RxNorm: 793618 1 Capsule(s) PO QW 07/14/2014 07/13/2014 Inactive Prolia 60 mg/mL subcutaneous syringe RxNorm: 226056 Milliliter(s) SQ EVERY 6 MONTHS No Start Date Active Carafate 1 gram tablet RxNorm: 220218 1 Tablet(s) PO BID No Start Date Active Miralax oral RxNorm: 284279 oral No Start Date Active Stool Softener oral RxNorm: 88800 oral No Start Date Active Calcium + Vitamin D oral RxNorm: 4018 oral No Start Date Active naproxen 500 mg tablet RxNorm: 142451 1 Tablet(s) PO BID No Start Date 08/05/2015 Inactive albuterol sulfate 2.5 mg/3 mL (0.083 %) solution for nebulization RxNorm: 546903 3 Milliliter(s) INH Q4 PRN No Start Date 02/17/2018 Inactive oxycodone 20 mg tablet RxNorm: 6372463 1 Tablet(s) PO Q6 as needed No Start Date 08/01/2014 Inactive aspirin 81 mg tablet RxNorm: 267201 1 Tablet(s) PO daily No Start Date 07/22/2017 Inactive simvastatin 40 mg tablet RxNorm: 653008 1 Tablet(s) PO daily No Start Date 05/09/2015 Inactive cyanocobalamin (vit B-12) 1,000 mcg/mL injection syringe RxNorm: 714160 1 Inj monthly No Start Date 02/15/2017 Inactive Reglan 10 mg tablet RxNorm: 094825 1 Tablet(s) PO as needed No Start Date 07/29/2016 Inactive alendronate 70 mg tablet RxNorm: 069660 1 Tablet(s) PO weekly No Start Date 04/16/2015 Inactive Protonix 40 mg tablet,delayed release RxNorm: 729700 1 Tablet(s) PO daily No Start Date 03/04/2015 Inactive cyclobenzaprine 5 mg tablet RxNorm: 048138 1 Tablet(s) PO Q8 as needed muscle spasms No Start Date 09/10/2016 Inactive Vitamin D3 1,000 unit capsule RxNorm: 174593 1 Capsule(s) PO daily No Start Date 07/13/2014 Inactive Cardizem CD 360 mg capsule,extended release RxNorm: 699847 1 Capsule(s) PO daily No Start Date 01/04/2018 Inactive prednisone 10 mg tablets in a dose pack RxNorm: 515727 1 Tablet(s) PO UD No Start Date 09/08/2016 Inactive Medication Administered Medication Codes Instructions Start Date Status promethazine 25 mg/mL injection solution RxNorm: 163771 Milliliter 04/21/2018 No longer Active Kenalog 40 mg/mL suspension for injection RxNorm: 9265813 1Milliliter 08/31/2017 No longer Active Kenalog 40 mg/mL suspension for injection RxNorm: 4516783 2Milliliter 08/21/2017 No longer Active Kenalog 40 mg/mL suspension for injection RxNorm: 9285264 2MilliliterUD 08/12/2017 No longer Active Kenalog 40 mg/mL suspension for injection RxNorm: 4325113 2Milliliter 08/05/2017 No longer Active Kenalog 40 mg/mL suspension for injection RxNorm: 5582496 1.5Milliliter 04/02/2017 No longer Active Kenalog 40 mg/mL suspension for injection RxNorm: 8152437 1Milliliter 10/02/2016 No longer Active Kenalog 40 mg/mL suspension for injection RxNorm: 6099231 1Milliliter 09/12/2016 No longer Active Immunizations Vaccine [...] Item Item Code Result Date Comp Metabolic Eey166 NA 134 mEq/L 03/03/2018 Comp Metabolic Mzo997 K 3.3 mEq/L 03/03/2018 Comp Metabolic Uvb262 CL 90 mEq/L 03/03/2018 Comp Metabolic Vme234 CO2 33.0 mEq/L 03/03/2018 Comp Metabolic Qph954 ANION GAP 14 03/03/2018 Comp Metabolic Cig906 GLUCOSE 146 mg/dL 03/03/2018 Comp Metabolic Zuv379 Creat 1.7 mg/dL 03/03/2018 Comp Metabolic Ful906 eGFR 31 ml/min/1.73m2 03/03/2018 Comp Metabolic Akz395 BUN 74 mg/dL 03/03/2018 Comp Metabolic Rll413 B/C Ratio 43.8 Ratio 03/03/2018 Comp Metabolic Tde189 CALCIUM 8.6 mg/dL 03/03/2018 Comp Metabolic Abq632 ALK PHOS 70 U/L 03/03/2018 Comp Metabolic Apg539 AST(SGOT) 14 U/L 03/03/2018 Comp Metabolic Htu245 ALT(SGPT) 9 U/L 03/03/2018 Comp Metabolic Gte296 BILI T 0.6 mg/dL 03/03/2018 Comp Metabolic Vmk703 ALBUMIN 3.8 g/dL 03/03/2018 Comp Metabolic Mih197 TPRO 6.7 g/dL 03/03/2018 Comp Metabolic Tbo062 GLOB 2.9 g/dL 03/03/2018 Comp Metabolic Jbk403 A/G Ratio 1.3 Ratio 03/03/2018 Comp Metabolic Srr908 Osmo 293 mOsmo 03/03/2018 Cbc With Differential [...] 29.9 pg 03/03/2018 Cbc With Differential Ord2 [place]% 11.1 % 03/03/2018 Cbc With Differential Ord2 [...] 1.38 K/ul 03/03/2018 Cbc With Differential Ord2 [place] ABS# 0.9 K/ul 03/03/2018 Cbc With Differential Ord2 Eos ABS# 0.0 K/ul 03/03/2018 Cbc With Differential Ord2 Baso ABS# 0.1 K/ul 03/03/2018 Tibc Ord40 Iron 75 ug/dl 10/22/2017 Tibc Ord40 UIBC 270 ug/dL 10/22/2017 Tibc Ord40 TIBC 345 ug/dL 10/22/2017 Tibc Ord40 Fe-%Sat 21.7 % 10/22/2017 Prealbumin 776685 PREALBUMIN 33 mg/dL 10/21/2017 Comp Metabolic Qji705 NA 134 mEq/L 10/20/2017 Comp Metabolic Atw476 K 3.7 mEq/L 10/20/2017 Comp Metabolic Smc586 CL 93 mEq/L 10/20/2017 Comp Metabolic Jut373 CO2 29.0 mEq/L 10/20/2017 Comp Metabolic Xxy253 ANION GAP 16 10/20/2017 Comp Metabolic Iak760 GLUCOSE 115 mg/dL 10/20/2017 Comp Metabolic Kkn637 Creat 0.8 mg/dL 10/20/2017 Comp Metabolic Lym723 eGFR 73 ml/min/1.73m2 10/20/2017 Comp Metabolic Vsc525 BUN 46 mg/dL 10/20/2017 Comp Metabolic Jyu699 B/C Ratio 57.5 Ratio 10/20/2017 Comp Metabolic Pje672 CALCIUM 8.7 mg/dL 10/20/2017 Comp Metabolic Ezz705 ALK PHOS 56 U/L 10/20/2017 Comp Metabolic Ptx400 AST(SGOT) 19 U/L 10/20/2017 Comp Metabolic Lyc498 ALT(SGPT) 23 U/L 10/20/2017 Comp Metabolic Jtt629 BILI T 0.6 mg/dL 10/20/2017 Comp Metabolic Dls192 ALBUMIN 4.0 g/dL 10/20/2017 Comp Metabolic Qwv254 TPRO 6.6 g/dL 10/20/2017 Comp Metabolic Jja707 GLOB 2.7 g/dL 10/20/2017 Comp Metabolic Otu668 A/G Ratio 1.5 Ratio 10/20/2017 Comp Metabolic Gmp041 Osmo 281 mOsmo 10/20/2017 Tsh Ord6 TSH [...] 35.4 pg 10/20/2017 Cbc With Differential Ord2 [place]% 9.9 % 10/20/2017 Cbc With Differential Ord2 [...] 1.15 K/ul 10/20/2017 Cbc With Differential Ord2 [place] ABS# 0.6 K/ul 10/20/2017 Cbc With Differential Ord2 Eos ABS# 0.0 K/ul 10/20/2017 Cbc With Differential Ord2 Baso ABS# 0.0 K/ul 10/20/2017 Iron Ord72 Iron 75 ug/dl 10/20/2017 Romie Reflex Profile [id number] ROMIE (BRYANNA) SCREEN NONE DETECTED 01/12/2017 Comp Metabolic Ryz291 NA 129 mEq/L 01/08/2017 Comp Metabolic Rrb593 K 3.9 mEq/L 01/08/2017 Comp Metabolic Ihw752 CL 94 mEq/L 01/08/2017 Comp Metabolic Bkl142 CO2 31.0 mEq/L 01/08/2017 Comp Metabolic Lap205 ANION GAP 8 01/08/2017 Comp Metabolic Vsh171 GLUCOSE 103 mg/dL 01/08/2017 Comp Metabolic Vbl490 Creat 0.9 mg/dL 01/08/2017 Comp Metabolic Etn287 eGFR 61 ml/min/1.73m2 01/08/2017 Comp Metabolic Kou446 BUN 29 mg/dL 01/08/2017 Comp Metabolic Gwm987 B/C Ratio 30.9 Ratio 01/08/2017 Comp Metabolic Pph498 CALCIUM 8.5 mg/dL 01/08/2017 Comp Metabolic Hiv560 ALK PHOS 58 U/L 01/08/2017 Comp Metabolic Qys986 AST(SGOT) 17 U/L 01/08/2017 Comp Metabolic Asw032 ALT(SGPT) 10 U/L 01/08/2017 Comp Metabolic Vse204 BILI T 0.4 mg/dL 01/08/2017 Comp Metabolic Rch039 ALBUMIN 3.0 g/dL 01/08/2017 Comp Metabolic Jol242 TPRO 5.5 g/dL 01/08/2017 Comp Metabolic Pfn135 GLOB 2.5 g/dL 01/08/2017 Comp Metabolic Ter282 A/G Ratio 1.2 Ratio 01/08/2017 Comp Metabolic Gca255 Osmo 265 mOsmo 01/08/2017 Cbc With Differential [...] 23.3 % 01/08/2017 Cbc With Differential Ord2 [place]% 12.2 % 01/08/2017 Cbc With Differential Ord2 [...] 1.62 K/ul 01/08/2017 Cbc With Differential Ord2 [place] ABS# 0.9 K/ul 01/08/2017 Cbc With Differential [...] 100.3 fl 11/10/2016 Cbc With Differential Ord2 [place]% 9.1 % 11/10/2016 Cbc With Differential Ord2 [...] 0.78 K/ul 11/10/2016 Cbc With Differential Ord2 [place] ABS# 0.5 K/ul 11/10/2016 Cbc With Differential [...] 30.3 pg 10/07/2016 Cbc With Differential Ord2 [place]% 11.8 % 10/07/2016 Cbc With Differential Ord2 [...] 1.54 K/ul 10/07/2016 Cbc With Differential Ord2 [place] ABS# 1.0 K/ul 10/07/2016 Cbc With Differential Ord2 Eos ABS# 0.1 K/ul 10/07/2016 Cbc With Differential Ord2 Baso ABS# 0.0 K/ul 10/07/2016 Comp Metabolic Mvf802 NA 129 mEq/L 08/26/2016 Comp Metabolic Sbi682 K 3.9 mEq/L 08/26/2016 Comp Metabolic Evr428 CL 93 mEq/L 08/26/2016 Comp Metabolic Cmp837 CO2 30.0 mEq/L 08/26/2016 Comp Metabolic Rbn006 ANION GAP 10 08/26/2016 Comp Metabolic Eyh910 GLUCOSE 87 mg/dL 08/26/2016 Comp Metabolic Txl312 Creat 0.6 mg/dL 08/26/2016 Comp Metabolic Kif529 eGFR 96 ml/min/1.73m2 08/26/2016 Comp Metabolic Hzr209 BUN 17 mg/dL 08/26/2016 Comp Metabolic Hze185 B/C Ratio 27.0 Ratio 08/26/2016 Comp Metabolic Dqj826 CALCIUM 7.6 mg/dL 08/26/2016 Comp Metabolic Vra819 ALK PHOS 72 U/L 08/26/2016 Comp Metabolic Bvh796 AST(SGOT) 20 U/L 08/26/2016 Comp Metabolic Zsp210 ALT(SGPT) 12 U/L 08/26/2016 Comp Metabolic Mrc857 BILI T 0.3 mg/dL 08/26/2016 Comp Metabolic Ogf623 ALBUMIN 2.7 g/dL 08/26/2016 Comp Metabolic Rwd690 TPRO 5.3 g/dL 08/26/2016 Comp Metabolic Foy659 GLOB 2.6 g/dL 08/26/2016 Comp Metabolic Uek701 A/G Ratio 1.1 Ratio 08/26/2016 Comp Metabolic Lkg121 Osmo 260 mOsmo 08/26/2016 Cbc With Differential [...] 28.3 pg 08/26/2016 Cbc With Differential Ord2 [place]% 9.6 % 08/26/2016 Cbc With Differential Ord2 [...] 1.83 K/ul 08/26/2016 Cbc With Differential Ord2 [place] ABS# 1.0 K/ul 08/26/2016 Cbc With Differential Ord2 Eos ABS# 0.1 K/ul 08/26/2016 Cbc With Differential Ord2 Baso ABS# 0.0 K/ul 08/26/2016 Magnesium Ord90 Mag 1.9 mg/dL 08/26/2016 Vitamin D 25 Oh [id number] VITAMIN D, 25 HYDROXY 34.59 ng/mL Tibc Ord40 Iron 13 ug/dl 08/26/2016 Tibc Ord40 UIBC 283 ug/dL 08/26/2016 Tibc Ord40 TIBC 296 ug/dL 08/26/2016 Tibc Ord40 Fe-%Sat 4.4 % 08/26/2016 Ferritin Ord22 FERRITIN 28.8 ng/mL 08/26/2016 Sed Rate Ord21 ESR 20 mm/hr 11/19/2015 Comp Metabolic Mvw946 NA 131 mEq/L 08/22/2015 Comp Metabolic Agy976 K 4.2 mEq/L 08/22/2015 Comp Metabolic Unc450 CL 98 mEq/L 08/22/2015 Comp Metabolic Xto798 CO2 27.0 mEq/L 08/22/2015 Comp Metabolic Ooo339 ANION GAP 10 08/22/2015 Comp Metabolic Wvb522 GLUCOSE 80 mg/dL 08/22/2015 Comp Metabolic Qmt578 Creat 0.5 mg/dL 08/22/2015 Comp Metabolic Qxq021 eGFR 120 ml/min/1.73m2 08/22/2015 Comp Metabolic Wqy119 BUN 13 mg/dL 08/22/2015 Comp Metabolic Edo001 B/C Ratio 25.0 Ratio 08/22/2015 Comp Metabolic Ryg944 CALCIUM 8.2 mg/dL 08/22/2015 Comp Metabolic Dqc329 ALK PHOS 49 U/L 08/22/2015 Comp Metabolic Yxc905 AST(SGOT) 18 U/L 08/22/2015 Comp Metabolic Eob127 ALT(SGPT) 11 U/L 08/22/2015 Comp Metabolic Nue898 BILI T 0.5 mg/dL 08/22/2015 Comp Metabolic Cfy145 ALBUMIN 3.5 g/dL 08/22/2015 Comp Metabolic Gny696 TPRO 6.2 g/dL 08/22/2015 Comp Metabolic Bpy144 GLOB 2.7 g/dL 08/22/2015 Comp Metabolic Tal474 A/G Ratio 1.3 Ratio 08/22/2015 Comp Metabolic Tcv042 Osmo 262 mOsmo 08/22/2015 Cbc With Differential [...] 32.4 pg 08/22/2015 Cbc With Differential Ord2 [place]% 10.3 % 08/22/2015 Cbc With Differential Ord2 [...] 1.39 K/ul 08/22/2015 Cbc With Differential Ord2 [place] ABS# 0.7 K/ul 08/22/2015 Cbc With Differential Ord2 Eos ABS# 0.1 K/ul 08/22/2015 Cbc With Differential Ord2 Baso ABS# 0.0 K/ul 08/22/2015 Tsh Ord6 hTSH II 2.19 uIU/mL 08/22/2015 Vitamin D 25 Oh Qnx9524 VITAMIN D, 25 HYDROXY 55.10 ng/mL Lipid [...] 1.5 Ratio 03/16/2015 Vitamin D 25 Oh Qvp2501 VITAMIN D, 25 HYDROXY 28.94 ng/mL Cbc [...] 28.1 pg 03/16/2015 Cbc With Differential Ord2 [place]% 11.2 % 03/16/2015 Cbc With Differential Ord2 [...] 2.37 K/ul 03/16/2015 Cbc With Differential Ord2 [place] ABS# 0.8 K/ul 03/16/2015 Cbc With Differential Ord2 Eos ABS# 0.1 K/ul 03/16/2015 Cbc With Differential Ord2 Baso ABS# 0.0 K/ul 03/16/2015 Cbc With Differential Ord2 New Analyzer Notice Please note new ref ranges starting 03-14-2015 due to implemntation of new five part differential hematolgy analyzer. 03/16/2015 Comp Metabolic Blw763 NA 131 mEq/L 03/16/2015 Comp Metabolic Ggf753 K 4.1 mEq/L 03/16/2015 Comp Metabolic Jke746 CL 94 mEq/L 03/16/2015 Comp Metabolic Cqj094 CO2 28.0 mEq/L 03/16/2015 Comp Metabolic Wqy679 ANION GAP 13 03/16/2015 Comp Metabolic Wby245 GLUCOSE 96 mg/dL 03/16/2015 Comp Metabolic Das431 Creat 0.7 mg/dL 03/16/2015 Comp Metabolic Lox236 eGFR 80 ml/min/1.73m2 03/16/2015 Comp Metabolic Enc363 BUN 16 mg/dL 03/16/2015 Comp Metabolic Chn036 B/C Ratio 21.6 Ratio 03/16/2015 Comp Metabolic Fww554 CALCIUM 8.9 mg/dL 03/16/2015 Comp Metabolic Kmv524 ALK PHOS 44 U/L 03/16/2015 Comp Metabolic Hjt090 AST(SGOT) 22 U/L 03/16/2015 Comp Metabolic Xwr266 ALT(SGPT) 14 U/L 03/16/2015 Comp Metabolic Rof873 BILI T 0.5 mg/dL 03/16/2015 Comp Metabolic Ucy048 ALBUMIN 3.4 g/dL 03/16/2015 Comp Metabolic Dsr331 TPRO 6.0 g/dL 03/16/2015 Comp Metabolic Qwz998 GLOB 2.6 g/dL 03/16/2015 Comp Metabolic Vdr482 A/G Ratio 1.3 Ratio 03/16/2015 Comp Metabolic Qet745 Osmo 264 mOsmo 03/16/2015 Comp Metabolic Upl978 NA 129 mEq/L 11/09/2014 Comp Metabolic Yts558 K 4.2 mEq/L 11/09/2014 Comp Metabolic Mtj501 CL 96 mEq/L 11/09/2014 Comp Metabolic Tda389 CO2 27.0 mEq/L 11/09/2014 Comp Metabolic Lzb927 ANION GAP 10 11/09/2014 Comp Metabolic Utm918 GLUCOSE 144 mg/dL 11/09/2014 Comp Metabolic Kmg026 Creat 0.8 mg/dL 11/09/2014 Comp Metabolic Qms710 eGFR 73 ml/min/1.73m2 11/09/2014 Comp Metabolic Uwb213 BUN 22 mg/dL 11/09/2014 Comp Metabolic Vwo158 B/C Ratio 27.5 Ratio 11/09/2014 Comp Metabolic Uoy570 CALCIUM 8.6 mg/dL 11/09/2014 Comp Metabolic Xxy289 ALK PHOS 55 U/L 11/09/2014 Comp Metabolic Vzs579 AST(SGOT) 27 U/L 11/09/2014 Comp Metabolic Iss984 ALT(SGPT) 18 U/L 11/09/2014 Comp Metabolic Kzz834 BILI T 0.5 mg/dL 11/09/2014 Comp Metabolic Zzo781 ALBUMIN 3.0 g/dL 11/09/2014 Comp Metabolic Awn899 TPRO 5.4 g/dL 11/09/2014 Comp Metabolic Eli884 GLOB 2.4 g/dL 11/09/2014 Comp Metabolic Ooa610 A/G Ratio 1.3 Ratio 11/09/2014 Comp Metabolic Hwq414 Osmo 265 mOsmo 11/09/2014 Magnesium Ord90 Mag [...] Procedure Codes Date THER/PROPH/DIAG INJ SC/IM CPT-4: 87362 04/21/2018 PROMETHAZINE HCL INJECTION CPT-4: J2550 04/21/2018 DRAIN/INJECT JOINT/BURSA CPT-4: 60828 08/21/2017 DRAIN/INJECT JOINT/BURSA CPT-4: 26469 08/12/2017 TRIAMCINOLONE ACET INJ NOS CPT-4: J3301 08/12/2017 DRAIN/INJECT JOINT/BURSA CPT-4: 12554 08/05/2017 TRIAMCINOLONE ACET INJ NOS CPT-4: J3301 08/05/2017 DRAIN/INJECT JOINT/BURSA CPT-4: 77104 07/23/2017 DRAIN/INJECT JOINT/BURSA CPT-4: 73932 07/09/2017 TRIAMCINOLONE ACET INJ NOS CPT-4: J3301 07/09/2017 PRESCRIP TRANSMIT VIA ERX SY CPT-4: G8553 07/09/2017 DRAIN/INJECT JOINT/BURSA CPT-4: 21767 07/01/2017 TRIAMCINOLONE ACET INJ NOS CPT-4: J3301 07/01/2017 PRESCRIP TRANSMIT VIA ERX SY CPT-4: G8553 07/01/2017 DRAIN/INJECT JOINT/BURSA CPT-4: 37775 06/17/2017 DRAIN/INJECT JOINT/BURSA CPT-4: 41317 04/02/2017 TRIAMCINOLONE ACET INJ NOS CPT-4: J3301 04/02/2017 DRAIN/INJECT JOINT/BURSA CPT-4: 18796 02/06/2017 ADMIN INFLUENZA VIRUS VAC CPT-4: G0008 12/08/2016 FLU VACC PRSV FREE INC ANTIG CPT-4: 15062 12/08/2016 PRESCRIP TRANSMIT VIA ERX SY CPT-4: G8553 12/08/2016 PRESCRIP TRANSMIT VIA ERX SY CPT-4: G8553 11/17/2016 TRIAMCINOLONE ACET INJ NOS CPT-4: J3301 10/02/2016 TRIAMCINOLONE ACET INJ NOS CPT-4: J3301 09/12/2016 DRAIN/INJECT JOINT/BURSA CPT-4: 17051 09/08/2016 TRIAMCINOLONE ACET INJ NOS CPT-4: J3301 09/08/2016 PRESCRIP TRANSMIT VIA ERX SY CPT-4: G8553 08/26/2016 PRESCRIP TRANSMIT VIA ERX SY CPT-4: G8553 08/18/2016 ADMIN INFLUENZA VIRUS VAC CPT-4: G0008 11/19/2015 FLU VACC PRSV FREE INC ANTIG Formatting Model/CDA Sections, Assigned to/Luanne Elaine CPT-4: 51696Ihjirfq 11/19/2015 PRESCRIP TRANSMIT VIA ERX SY CPT-4: G8553 09/04/2015 PRESCRIP TRANSMIT VIA ERX SY CPT-4: G8553 2015 PRESCRIP TRANSMIT VIA ERX SY CPT-4: G8553 07/18/2015 PRESCRIP TRANSMIT VIA ERX SY CPT-4: G8553 07/02/2015 REMOVE IMPACTED EAR WAX UNI CPT-4: 23853 04/09/2015 PRESCRIP TRANSMIT VIA ERX SY CPT-4: G8553 02/08/2015 ADMIN INFLUENZA VIRUS VAC CPT-4: G0008 01/10/2015 FLU VACC PRSV FREE INC ANTIG Formatting Model/CDA Sections, Assigned to/Luanne Elaine CPT-4: 25610Qnokysi 01/10/2015 ADMIN PNEUMOCOCCAL VACCINE Formatting Model/CDA Sections, Assigned to SNOMED CT: 30694092 CPT-4: K7993Khghneg 12/11/2014 PNEUMOCOCCAL VACC [address]: 82208934 CPT-4: 04962 12/11/2014 Vital Signs Date Vital 04/21/2018 Blood [...] Code : 8480-6 BMI: 23.5 Code : 85961-2 Heart Rate 1 : 58 bpm Height: 5'8" SpO2: 96% Weight: 152 lbs 11/30/2017 Blood Pressure 1: 122/70 Code : 8480-6 Heart Rate 1: 105 bpm Height: 5'8" SpO2: 98% Weight: 11/27/2017 Blood Pressure 1: 148/76 Code : 8480-6 Heart Rate 1: 72 bpm Height: 5'8" SpO2: 99% Weight: 11/10/2017 Blood Pressure 1: 130/76 Code : 8480-6 BMI: 27.3 Code : 04042-2 Heart Rate 1 : 98 bpm Height: [...] Code : 8480-6 BMI: 24.7 Code : 51413-1 Heart Rate 1 : 100 bpm Height: 5'8" SpO2: 95% Weight: 160 lbs 08/31/2017 Blood Pressure 1: 128/78 Code : 8480-6 BMI: 23.6 Code : 99794-4 Heart Rate 1 : 102 bpm Height: 5'8" SpO2: 96% Weight: 153 lbs 08/21/2017 Blood Pressure 1: 138/78 Code : 8480-6 Heart Rate 1: 97 bpm SpO2: 95% Weight: 156 lbs 2 oz 08/12/2017 Blood Pressure 1: 138/74 Code : 8480-6 BMI: 25.0 Code : 09459-2 Heart Rate 1 : 94 bpm Height: 5'8" SpO2: 98% Weight: 162 lbs 08/05/2017 Blood Pressure 1: 126/78 Code : 8480-6 BMI: 25.8 Code : 00452-8 Heart Rate 1 : 74 bpm Height: 5'8" SpO2: 96% Weight: 167 lbs 07/23/2017 Blood Pressure 1: 106/64 Code : 8480-6 BMI: 25.3 Code : 84691-4 Heart Rate 1 : 81 bpm Height: 5'8" SpO2: 99% Weight: 163 lbs 14 oz 07/09/2017 Blood Pressure 1: 130/68 Code : 8480-6 Heart Rate 1: 82 bpm Height: 5'8" SpO2: 98% Weight: 07/01/2017 Blood Pressure 1: 124/76 Code : 8480-6 BMI: 26.5 Code : 01822-5 Heart Rate 1 : 99 bpm Height: 5'8" SpO2: 98% Weight: 172 lbs 06/24/2017 Blood Pressure 1: 118/70 Code : 8480-6 Heart Rate 1: 103 bpm Height: 5'8" SpO2: 98% Weight: 06/17/2017 Blood Pressure 1: 110/64 Code : 8480-6 BMI: 25.0 Code : 08259-1 Heart Rate 1 : 73 bpm Height: 5'8" Weight: 162 lbs 06/01/2017 Blood Pressure 1: 158/84 Code : 8480-6 BMI: 24.4 Code : 55089-5 Heart Rate 1 : 94 bpm Height: 5'8" SpO2: 95% Weight: 158 lbs 04/02/2017 Blood Pressure 1: 164/80 Code : 8480-6 BMI: 23.1 Code : 80592-0 Heart Rate 1 : 76 bpm Height: 5'8" SpO2: 94% Weight: 150 lbs 03/12/2017 Blood Pressure 1: 130/74 Code : 8480-6 BMI: 23.0 Code : 99599-9 Heart Rate 1 : 92 bpm Height: 5'8" SpO2: 94% Weight: 149 lbs 02/06/2017 Height: Weight: 01/08/2017 Blood Pressure 1: 136/76 Code : 8480-6 BMI: 21.4 Code : 92979-8 Heart Rate 1 : 85 bpm Height: 5'8" SpO2: 98% Weight: 138 lbs 8 oz 12/08/2016 Blood Pressure 1: 132/66 Code : 8480-6 BMI: 22.2 Code : 57244-4 Heart Rate 1 : 106 bpm Height: 5'8" SpO2: 97% Weight: 144 lbs 11/17/2016 Blood Pressure 1: 146/80 Code : 8480-6 BMI: 22.4 Code : 62572-5 Heart Rate 1 : 100 bpm Height: 5'8" SpO2: 98% Weight: 145 lbs 11/10/2016 Blood Pressure 1: 122/62 Code : 8480-6 BMI: 22.2 Code : 66978-2 Height: 5'8" Weight: 144 lbs 11/05/2016 Blood Pressure 1: 146/80 Code : 8480-6 BMI: 22.2 Code : 27308-5 Heart Rate 1 : 77 bpm Height: 5'8" SpO2: 99% Weight: 144 lbs 10/07/2016 Blood Pressure 1: 132/68 Code : 8480-6 BMI: 22.8 Code : 01890-2 Heart Rate 1 : 90 bpm Height: 5'8" SpO2: 97% Weight: 148 lbs 10/02/2016 Blood Pressure 1: 166/86 Code : 8480-6 BMI: 22.8 Code : 75395-9 Heart Rate 1 : 96 bpm Height: 5'8" SpO2: 96% Weight: 148 lbs 09/12/2016 Blood Pressure 1: 130/86 Code : 8480-6 Height: Weight: 09/08/2016 Blood Pressure 1: 132/74 Code : 8480-6 BMI: 22.4 Code : 56133-0 Heart Rate 1 : 93 bpm Height: 5'8" SpO2: 99% Weight: 145 lbs 08/26/2016 Blood Pressure 1: 132/78 Code : 8480-6 BMI: 23.9 Code : 93466-9 Heart Rate 1 : 80 bpm Height: 5'8" SpO2: 94% Weight: 155 lbs 08/18/2016 Blood Pressure 1: 130/70 Code : 8480-6 BMI: 23.6 Code : 88454-7 Heart Rate 1 : 100 bpm Height: 5'8" SpO2: 94% Weight: 153 lbs 07/30/2016 Blood Pressure 1: 144/84 Code : 8480-6 BMI: 22.4 Code : 65630-5 Heart Rate 1 : 86 bpm Height: 5'8" SpO2: 97% Weight: 145 lbs 07/14/2016 Blood Pressure 1: 122/74 Code : 8480-6 BMI: 22.5 Code : 24440-4 Heart Rate 1 : 87 bpm Height: 5'8" SpO2: 97% Weight: 146 lbs 07/04/2016 Blood Pressure 1: 128/78 Code : 8480-6 BMI: 22.5 Code : 80925-9 Heart Rate 1 : 98 bpm Height: 5'8" Weight: 146 lbs 06/26/2016 Blood Pressure 1: 122/68 Code : 8480-6 BMI: 22.5 Code : 31691-2 Heart Rate 1 : 102 bpm Height: 5'8" SpO2: 98% Weight: 146 lbs 05/28/2016 Blood Pressure 1: 122/68 Code : 8480-6 BMI: 22.4 Code : 76972-7 Heart Rate 1 : 89 bpm Height: 5'8" SpO2: 97% Weight: 145 lbs 03/18/2016 Blood Pressure 1: 132/66 Code : 8480-6 BMI: 22.8 Code : 68214-1 Heart Rate 1 : 96 bpm Height: 5'8" SpO2: 98% Weight: 148 lbs 01/29/2016 Blood Pressure 1: 122/66 Code : 8480-6 BMI: 22.2 Code : 74232-4 Heart Rate 1 : 90 bpm Height: 5'8" SpO2: 99% Weight: 144 lbs 01/01/2016 Blood Pressure 1: 148/82 Code : 8480-6 BMI: 22.5 Code : 11978-0 Heart Rate 1 : 82 bpm Height: 5'8" Weight: 146 lbs 11/19/2015 Blood Pressure 1: 140/74 Code : 8480-6 BMI: 23.7 Code : 17998-4 Heart Rate 1 : 79 bpm Height: 5'8" SpO2: 96% Weight: 153 lbs 8 oz 11/01/2015 Blood Pressure 1: 118/72 Code : 8480-6 Heart Rate 1: 90 bpm Height: 5'8" SpO2: 95% 09/04/2015 Blood Pressure 1: 136/72 Code : 8480-6 BMI: 23.1 Code : 54054-5 Heart Rate 1 : 97 bpm Height: 5'8" SpO2: 98% Weight: 149 lbs 8 oz 2015 Blood Pressure 1: 144/76 Code : 8480-6 BMI: 22.8 Code : 64531-6 Heart Rate 1 : 75 bpm Height: 5'8" SpO2: 97% Weight: 148 lbs 07/18/2015 Blood Pressure 1: 132/60 Code : 8480-6 BMI: 23.1 Code : 63747-8 Heart Rate 1 : 78 bpm Height: 5'8" Weight: 150 lbs 07/02/2015 Blood Pressure 1: 156/86 Code : 8480-6 BMI: 23.0 Code : 60438-4 Heart Rate 1 : 75 bpm Height: 5'8" SpO2: 99% Weight: 149 lbs 05/31/2015 Blood Pressure 1: 136/72 Code : 8480-6 BMI: 22.7 Code : 72003-4 Heart Rate 1 : 85 bpm Height: 5'8" SpO2: 97% Weight: 147 lbs 04/09/2015 Blood Pressure 1: 118/60 Code : 8480-6 BMI: 22.7 Code : 14104-5 Heart Rate 1 : 72 bpm Height: 5'8" SpO2: 95% Weight: 147 lbs 02/08/2015 Blood Pressure 1: 138/76 Code : 8480-6 BMI: 23.1 Code : 14889-8 Heart Rate 1 : 80 bpm Height: 5'8" SpO2: 98% Weight: 150 lbs 12/11/2014 Blood Pressure 1: 120/74 Code : 8480-6 BMI: 22.1 Code : 42873-6 Heart Rate 1 : 92 bpm Height: 5'8" SpO2: 96% Weight: 143 lbs 11/09/2014 Blood Pressure 1: 100/64 Code : 8480-6 BMI: 21.6 Code : 53040-3 Heart Rate 1 : 88 bpm Height: 5'8" Weight: 140 lbs 10/23/2014 Blood Pressure 1: 138/82 Code : 8480-6 BMI: 23.6 Code : 52363-7 Heart Rate 1 : 86 bpm Height: 5'8" Weight: 153 lbs 10/16/2014 Blood Pressure 1: 128/60 Code : 8480-6 BMI: 23.3 Code : 07560-2 Heart Rate 1 : 91 bpm Height: 5'8" SpO2: 99% Weight: 151 lbs 10/09/2014 Blood Pressure 1: 120/60 Code : 8480-6 BMI: 23.0 Code : 96908-4 Heart Rate 1 : 96 bpm Height: 5'8" SpO2: 97% Weight: 149 lbs 09/14/2014 Blood Pressure 1: 132/72 Code : 8480-6 BMI: 22.1 Code : 26831-0 Heart Rate 1 : 84 bpm Height: 5'8" SpO2: 97% Weight: 143 lbs 08/11/2014 Blood Pressure 1: 134/74 Code : 8480-6 BMI: 24.1 Code : 11880-3 Heart Rate 1 : 88 bpm Height: 5'8" Weight: 156 lbs 07/12/2014 Blood Pressure 1: 122/62 Code : 8480-6 BMI: 22.7 Code : 14460-8 Heart Rate 1 : 76 bpm Height: [...] Dr. Blancas in [place] and Neurosurgeon in [place] in the past neck pain Significant Medical Conditions spinal stenosis 07/12/2014 has osteoarthritis Advance Directives No Advance Directive data Encounters Encounter Performer Location Codes Date EST. PATIENT, LEVEL III Diagnosis: Other specified intestinal infections[ICD10: A08.8] Diagnosis: Diarrhea, unspecified[ICD10: R19.7] [facility] CPT-4: 63202 04/21/2018 ([id number]) 99360 EST. PATIENT, LEVEL IV Diagnosis: Essential (primary) hypertension[ICD10: I10] Diagnosis: Hypo-osmolality and hyponatremia[ICD10: E87.1] Diagnosis: Chronic pain syndrome[ICD10: G89.4] Araceli Silva MD, [facility] CPT-4: 27310 03/03/2018 ([id number]) 45281 EST. PATIENT, LEVEL III Diagnosis: Cough[ICD10: R05] Diagnosis: Acute bronchitis, unspecified[ICD10: J20.9] Diagnosis: Chronic obstructive pulmonary disease, unspecified[ICD10: J44.9] Ila Silva MD, [facility] CPT-4: 61681 02/12/2018 ([id number]) 17574 EST. PATIENT, LEVEL IV Diagnosis: Chronic pain syndrome[ICD10: G89.4] Diagnosis: Cough[ICD10: R05] Diagnosis: Diarrhea, unspecified[ICD10: R19.7] Diagnosis: Generalized edema[ICD10: R60.1] Ila Silva MD, [facility] CPT-4: 16032 02/09/2018 ([id number]) 56997 EST. PATIENT, LEVEL III Diagnosis: Generalized edema[ICD10: R60.1] Diagnosis: Lymphedema, not elsewhere classified[ICD10: I89.0] Araceli Silva MD, [facility] CPT-4: 63683 01/14/2018 ([id number]) 70996 EST. PATIENT, LEVEL IV Diagnosis: Essential (primary) hypertension[ICD10: I10] Diagnosis: Generalized edema[ICD10: R60.1] Diagnosis: Chronic pain syndrome[ICD10: G89.4] Araceli Silva MD, [facility] CPT-4: 99440 12/24/2017 ([id number]) 20241 EST. PATIENT, LEVEL III Diagnosis: Lymphedema, not elsewhere classified[ICD10: I89.0] Araceli Silva MD, [facility] CPT-4: 67332 11/30/2017 ([id number]) 35323 EST. PATIENT, LEVEL III Diagnosis: Generalized edema[ICD10: R60.1] Ila Silva MD, [facility] CPT-4: 78173 11/27/2017 ([id number]) 66179 EST. PATIENT, LEVEL IV Diagnosis: Localized edema[ICD10: [...] in left shoulder[ICD10: M25.512] Araceli Silva MD, [facility] CPT-4: 98428 11/10/2017 ([id number]) 47794 EST. PATIENT, LEVEL IV Diagnosis: Localized edema[ICD10: [...] shoulder[ICD10: M25.512] [facility] CPT-4: 42548 10/29/2017 ([id number]) 57113 EST. PATIENT, LEVEL IV Diagnosis: Essential (primary) [...] R60.0] [facility] CPT- 4: 86923 10/20/[id number]) 06531 EST. 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 PATIENT, LEVEL IV Diagnosis: Primary osteoarthritis, left shoulder[ICD10: M19.012] Diagnosis: Pain in left shoulder[ICD10: M25.512] Diagnosis: Lymphedema, not elsewhere classified[ICD10: I89.0] Diagnosis: Localized edema[ICD10: R60.0] Diagnosis: Chronic atrial fibrillation[ICD10: I48.2] Araceli Silva MD, [facility] CPT-4: 57165 09/15/2017 [id number] 31952 EST. PATIENT, LEVEL III Diagnosis: Primary osteoarthritis, left shoulder[ICD10: M19.012] Diagnosis: Pain in left shoulder[ICD10: M25.512] Diagnosis: Hemarthrosis, left shoulder[ICD10: M25.012] Araceli Silva MD, [facility] CPT-4: 16418 08/31/[id number]) 55798 EST. 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 PATIENT, LEVEL III Diagnosis: Localized edema[ICD10: R60.0] Araceli Silva MD, [facility] CPT- 4: 63219 07/23/2017 ([id number]) 49728 EST. PATIENT, LEVEL III Diagnosis: Rheumatoid arthritis without rheumatoid factor, left shoulder[ICD10: M06.012] Diagnosis: Hemarthrosis, left shoulder[ICD10: M25.012] Araceli Silva MD, [facility] CPT-4: 00109 07/09/2017 ([id number]) 50683 EST. PATIENT, LEVEL III Diagnosis: Chronic pain syndrome[ICD10: G89.4] Diagnosis: Rheumatoid arthritis without rheumatoid factor, left shoulder[ICD10: M06.012] Diagnosis: Hemarthrosis, left shoulder[ICD10: M25.012] Diagnosis: Lymphedema, not elsewhere classified[ICD10: I89.0] Araceli Silva MD, [facility] CPT-4: 99101 07/01/2017 ([id number]) 47655 EST. PATIENT, LEVEL III Diagnosis: Chronic pain syndrome[ICD10: G89.4] Araceli Silva MD, [facility] CPT-4: 11321 06/24/2017 ([id number]) 16315 EST. 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 PATIENT, LEVEL III Diagnosis: Pain in left shoulder[ICD10: M25.512] Diagnosis: Hemarthrosis, right shoulder[ICD10: M25.011] Diagnosis: Hemarthrosis, left shoulder[ICD10: M25.012] Maricel Silva MD, [facility] CPT-4: 64853 06/01/2017 ([id number]) [id number] EST. PATIENT, LEVEL II Diagnosis: Pain in right shoulder[ICD10: M25.511] Diagnosis: Hemarthrosis, right shoulder[ICD10: M25.011] Araceli Silva MD, [facility] CPT-4: 92001 04/02/2017 ([id number]) 62222 EST. 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 PATIENT, LEVEL IV Diagnosis: Encounter for immunization[ICD10: Z23] Diagnosis: Chronic pain syndrome[ICD10: G89.4] Diagnosis: Essential (primary) hypertension[ICD10: I10] Araceli Silva MD, [facility] CPT-4: 97998 12/08/2016 ([id number]) [id number] EST. PATIENT, LEVEL III Diagnosis: Urge incontinence[ICD10: N39.41] Diagnosis: Chronic pain syndrome[ICD10: G89.4] Diagnosis: Lymphedema, not elsewhere classified[ICD10: I89.0] Araceli Silva MD, [facility] CPT-4: 10463 11/17/2016 [id number] EST. 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 PATIENT, LEVEL IV Diagnosis: Essential (primary) hypertension[ICD10: I10] Diagnosis: Other chronic pain[ICD10: G89.29] Diagnosis: Localized edema[ICD10: R60.0] Diagnosis: Urge incontinence[ICD10: N39.41] Araceli Silva MD, [facility] CPT-4: 91031 11/05/2016 ([id number]) 56777 EST. 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 PATIENT, LEVEL III Diagnosis: Hemarthrosis, right shoulder[ICD10: M25.011] Diagnosis: Pain in right shoulder[ICD10: M25.511] Ila Silva MD, [facility] CPT-4: 18484 10/02/2016 83687 EST. PATIENT, LEVEL II Diagnosis: Low back pain[ICD10: M54.5] Diagnosis: Sacroiliitis, not elsewhere classified[ICD10: M46.1] Ila Silva MD, [facility] CPT-4: 53798 09/12/2016 ([id number]) 72322 EST. PATIENT, LEVEL III Diagnosis: Hemarthrosis, right shoulder[ICD10: M25.011] Diagnosis: Other chronic pain[ICD10: G89.29] Araceli Silva MD, [facility] CPT-4: 71683 09/08/2016 ([id number]) 26612 EST. PATIENT, LEVEL IV Diagnosis: Other iron deficiency anemias[ICD10: D50.8] Diagnosis: Vitamin D deficiency, unspecified[ICD10: E55.9] Diagnosis: Hypomagnesemia[ICD10: E83.42] Araceli Silva MD [facility] CPT- 4: 62759 08/26/2016 ([id number]) 46919 EST. PATIENT, LEVEL III Diagnosis: Localized edema[ICD10: R60.0] Araceli Silva MD [facility] CPT- 4: 52501 08/18/2016 ([id number]) 25679 EST. 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 PATIENT, LEVEL IV Diagnosis: Pain in left shoulder[ICD10: M25.512] Diagnosis: Nocturia[ICD10: R35.1] Maricel Silva MD, [facility] CPT-4: 26730 07/14/2016 29071 EST. PATIENT, LEVEL III Diagnosis: Pain in left shoulder[ICD10: M25.512] Maricel Silva MD [facility] CPT-4: 53095 07/04/2016 ([id number]) 88851 EST. 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 PATIENT, LEVEL II Diagnosis: Insect bite (nonvenomous) of right upper arm, initial encounter[ICD10 : S40.861A] Ila Silva MD, [facility] CPT-4: 03962 11/01/2015 ([id number]) 64089 EST. 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 PATIENT, LEVEL III Diagnosis: Contusion of left upper arm, subsequent encounter[ICD10: S40.022D] Araceli Silva MD, [facility] CPT-4: 53443 2015 61410 EST. PATIENT, LEVEL III Diagnosis: Cellulitis of left upper limb[ICD10: L03.114] Maricel Silva MD, [facility] CPT-4: 42797 07/18/2015 ([id number]) 45863 EST. 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 PATIENT, LEVEL IV Diagnosis: Essential (primary) hypertension[ICD10: I10] Diagnosis: Vitamin D deficiency, unspecified[ICD10: E55.9] Diagnosis: Mixed hyperlipidemia[ICD10: E78.2] Diagnosis: Age-related osteoporosis with current pathological fracture, unspecified site, sequela[ICD10: M80.00XS] Araceli Silva MD, [facility] CPT- 4: 79256 02/08/2015 ([id number]) 64148 EST. PATIENT, LEVEL IV Diagnosis: Essential (primary) hypertension[ICD10: I10] Diagnosis: Localized edema[ICD10: R60.0] Diagnosis: Primary osteoarthritis, unspecified site[ICD10: M19.91] Araceli Silva MD [facility] CPT-4: 41709 12/11/2014 ([id number]) 72547 EST. PATIENT, LEVEL III Diagnosis: EDEMA[ICD9: 782.3] Diagnosis: ESSENTIAL HYPERTENSION[ICD9: 401.9] Araceli Silva MD, [facility] CPT-4: 15577 11/09/2014 ([id number]) 48124 EST. PATIENT, LEVEL III Diagnosis: Leg pain[ICD9: 729.5] Diagnosis: Ulcer of toe[ICD9: 707.15] Araceli Silva MD, [facility] CPT- 4: 34813 10/23/2014 ([id number]) 70438 EST. PATIENT, LEVEL III Diagnosis: Ulcer of toe[ICD9: 707.15] Araceli Silva MD [facility] CPT- 4: 08879 10/16/2014 14703 EST. PATIENT, LEVEL II Diagnosis: Ulcer of toe[ICD9: 707.15] Ila Silva MD, [facility] CPT-4: 59388 10/09/2014 ([id number]) 72536 EST. PATIENT, LEVEL III Diagnosis: EDEMA[ICD9: 782.3] Araceli Silva MD, [facility] CPT-4: 78139 09/14/2014 ([id number]) 69800 EST. PATIENT, LEVEL IV Diagnosis: EDEMA[ICD9: 782.3] Diagnosis: ESSENTIAL HYPERTENSION[ICD9: 401.9] Araceli Silva MD, [facility] CPT-4: 39539 08/11/2014 ([id number]) OFFICE VISIT, NEW - LEVEL 4 Diagnosis: HYPERLIPIDEMIA[ICD9: 272.4] Diagnosis: VITAMIN D DEFICIENCY[ICD9: 268.9] Diagnosis: Osteoporosis[ICD9: 733.00] Diagnosis: Esophageal reflux[ICD9: 530.81] Diagnosis: Chronic pain[ICD9: 338.29] [facility] CPT- 4: 20357 07/12/2014 Plan of Care Planned Activity Notes [...] stomach pain. 04/21/2018 Appointment: [phone] (30 min) Complex 04/21/2018 Patient Education: Patient [...] with fentanyl 03/03/2018 [facility]ment[phone] (15 min) Moderate 03/03/2018 Patient Education: Patient [...] breath - will send rx to [facility] 02/12/2018 Appointment: Ila Kennedy WPtel: [phone] [phone] (30 min) Complex 02/12/2018 Patient Education: Patient Medication Summary Completed 02/12/2018 Visit Plan: Chronic Pain Syndrome - pt has chronic pain - has been maintained on current medications, has not sought out other medications , only uses PRN pain medications as directed, and understands the consequences of over-medication. Wovjo-hhnvnwoqvt-zfkwlmpc with lasix/metolazone -if swelling /weight increase, okay to increase metolazone to daily as directed Cough- okay for robitussin dm Diarrhea- rx for lomotil written and instructed on use-follow up in 3 weeks, sooner if needed. Call with any concerns. 02/09/2018 Appointment: Ila Kennedy WPtel: [phone] [phone] (30 min) Complex 02/09/2018 Patient Education: Patient Medication Summary Completed 02/09/2018 Appointment: Araceli Silva WPtel: [facility] (15 min) Moderate 02/04/2018 Visit Plan: [...] Silva WPtel: [facility] (15 min) Moderate 01/14/2018 Patient Education: [...] scheduled. 12/24/2017 Appointment: [facility]el[phone] ([facility] min) Complex 12/24/2017 Patient [...] output. 11/30/2017 Appointment: [facility]el[phone] (15 min) Moderate 11/30/2017 Patient [...] over-medication. 11/10/2017 Appointment: [facility]Ptel[phone] (15 min) Moderate 11/10/2017 Patient [...] hands/fingers. We will contact [facility] in [place] for paperwork regarding the scooter. 10/29/2017 Appointment: [facility]el[phone] (15 min) Moderate 10/29/2017 Patient [...] time. 10/20/2017 Appointment: [facility]Ptel[phone] (30 min) Complex 10/20/2017 Patient [...] today. 09/29/2017 Appointment: [facility] Silva [facility]Ptel: [phone] [facility] [place] (15 min) Moderate 09/29/2017 Patient Education: [...] Summary Completed 08/21/2017 Appointment: Araceli Silva WPtel: [facility] (15 min) Moderate 08/20/2017 Visit Plan: Hemarthrosis shoulders - 250mL from left shoulder and 100mL from right shoulder with 1ml kenalog injected into right and left shoulders - Left and right shoulder pain and swelling, swelling into arms and left breast -pt to continue with use of compression sleeves. [id number] sep 2018 bristol 2ml kenalog 08/12/2017 Appointment: [facility] Silva [facility]Ptel[phone] [facility] (15 min) Moderate 08/12/2017 Patient [...] edema. 08/05/2017 Appointment: Araceli Silva WPtel: [facility]5 [facility] (15 min) Moderate 08/05/2017 Patient Education: [...] peripheral edema. 07/23/2017 Appointment: Araceli Silva WPtel: [address] [place], [place] [address] (15 min) Moderate 07/23/2017 Patient Education: Patient [...] symptoms. 07/09/2017 Appointment: Araceli Silva WPtel: [facility] (15 min) Moderate 07/09/2017 Patient Education: Patient Medication Summary Completed 07/09/2017 Referral: [facility]: Referral Initiated 07/08/2017 Visit [...] Silva WPtel: [facility] (15 min) Moderate 07/01/2017 Patient Education: Patient Medication Summary Completed 07/01/2017 Visit Plan: Chronic Pain Syndrome - pt has chronic pain - has been maintained on current medications, has not sought out other medications , only uses PRN pain medications as directed, and understands the consequences of over-medication. 06/24/2017 Appointment: Araceli Silva WPtel: [address] [place], [place] [phone] (15 min) Moderate 06/24/2017 Patient Education: Patient [...] peripheral edema. 06/17/2017 Appointment: [facility] Silva [facility]Ptel: [phone] [facility] [place] (30 min) Complex 06/17/2017 Patient Education: Patient Medication Summary Completed 06/17/2017 Appointment: [facility] Silva [facility]Ptel: [phone] [facility] [place] (15 min) Moderate 06/08/2017 Care Plan: Referral Order SNOMED-CT : 810244225 Pending 06/02/2017 Visit Plan: Left and right [...] edema. 06/01/2017 Appointment: Maric[facility] Gee WPtel: [phone] [place] (30 min) Complex 06/01/2017 [...] from shoulder 04/02/2017 Appointment: [facility] Silva [facility]Ptel: [phone] [facility] [place] (15 min) Moderate 04/02/2017 Patient [...] upset. 03/12/2017 Appointment: [facility]Ptel[phone] (15 min) Moderate 03/12/2017 Patient [...] check ROMIE. 01/08/2017 Appointment: Araceli Silva WPtel: [phone] [facility] (15 min) Moderate 01/08/2017 Patient Education: Patient [...] Remicaide. 12/08/2016 Appointment: Araceli Silva WPtel: [phone] [facility] (15 min) Moderate 12/08/2016 Patient Education: [...] for now 11/17/2016 Appointment: Araceli Silva WPtel: 101 [facility] (15 min) Moderate 11/17/2016 Patient Education: [...] of over-medication. 11/10/2016 Appointment: Maricel Gee WPtel: [phone] (30 min) Complex 11/10/2016 Patient Education: Patient [...] steroids, immunosuppression. 11/05/2016 Appointment: Araceli Silva WPtel: [phone] [facility] (15 min) Moderate 11/05/2016 Patient Education: [...] Silva WPtel: [facility] (15 min) Moderate 10/07/2016 Patient Education: Patient Medication Summary Completed 10/07/2016 Care Plan: Referral Order SNOMED-CT : [id number] Pending 10/07/2016 Care Plan: Referral Order SNOMED-CT : [id number] Pending 10/07/2016 Visit Plan: Hemarthrosis -right shoulder-only able to drain 5ml of bloody drainage-unable to give oral steroids due to recent GI bleed -will give kenalog injection today in the office-discussed getting OSMO patch 10/02/2016 Appointment: Ila Kennedy WPtel: [phone] [place] (30 min) Complex 10/02/2016 Patient Education: Patient Medication Summary Completed 10/02/2016 Appointment: Araceli Silva WPtel: [facility] [place] (15 min) Moderate 09/23/2016 Appointment: Araceli Silva WPtel: [facility] [place] (15 min) Moderate 09/17/2016 Visit Plan: Sacroiliitis - back exercises discussed with the patient, pt to continue with anti-inflammatories. Pt is to call if the symptoms do not improve or if they worsen. Kenalog injection today in the office. 09/12/2016 Appointment: Ila Kennedy WPtel: [phone] (15 min) Moderate 09/12/2016 Patient Education: Patient [...] Injection of kenalog 1mL - 40mg - [employer] - lot #[id number] , expires oct 2017 Chronic Pain Syndrome - pt has chronic pain - has been maintained on current medications, has not sought out other medications, only uses PRN pain medications as directed, and understands the consequences of over-medication. 09/08/2016 Appointment: Araceli Silva WPtel: [facility]9 [facility] (15 min) Moderate 09/08/2016 Patient Education: Patient [...] Silva WPtel: [facility] (15 min) Moderate 08/26/2016 Patient [...] Summary Completed 08/18/2016 Appointment: Araceli Silva WPtel: [facility] (15 min) Moderate 08/13/2016 Appointment: Araceli Silva WPtel: [facility] (15 min) Moderate 08/06/2016 Visit [...] the daytime. 07/30/2016 Appointment: Araceli Silva WPtel: [address] [place], [place] [address] (15 min) Moderate 07/30/2016 Patient Education: Patient Medication Summary Completed 07/30/2016 Visit Plan: Left shoulder pain - improving - pt is to notify clinic if symptoms do not improve, if they worsen, or with any questions or concerns. Nocturia - will give samples, pt is to notify clinic if symptoms do not improve. 07/14/2016 Appointment: Maricel Gee WPtel: [facility] [place] (30 min) Complex 07/14/2016 Patient [...] any dyspnea. 07/04/2016 Appointment: Maric[facility] Gee WPtel: [phone] (30 min) Complex 07/04/2016 Patient [...] medication. 06/26/2016 Appointment: Araceli Silva WPtel: [facility] (15 min) Moderate 06/26/2016 Patient [...] over-medication. 05/28/2016 Appointment: Araceli Silva WPtel: [facility] [place] (15 min) Moderate 05/28/2016 Patient Education: Patient Medication Summary Completed 05/28/2016 Patient Education: Hypertension Completed 05/28/2016 Appointment: Araceli Silva WPtel: [facility] [place] (15 min) Moderate 05/12/2016 Appointment: Araceli Silva WPtel: [facility] [place] (15 min) Moderate 04/15/2016 Appointment: Araceli Silva WPtel: [facility] [place] (30 min) Complex 03/25/2016 [...] the premarin. 03/18/2016 Appointment: Araceli Silva WPtel: [phone] [facility] [place] (30 min) Complex 03/18/2016 Patient Education: Patient Medication Summary Completed 03/18/2016 Appointment: Araceli Silva WPtel: [facility] (15 min) Moderate 02/19/2016 Visit Plan: Hypertension [...] of over-medication. 01/29/2016 Appointment: Araceli Silva WPtel: [phone] [facility] [place] (15 min) Moderate 01/29/2016 Patient Education: Patient Medication Summary Completed 01/29/2016 Visit Plan: Discussed MRI of the neck - pt is interested in doing this - however, not prior to changing her medication first to see if this helps her pain 01/01/2016 Appointment: Araceli Silva WPtel: [facility] [place] (15 min) Moderate 01/01/2016 Patient Education: Patient Medication Summary Completed 01/01/2016 Patient Education: Hypertension Completed 01/01/2016 Appointment: Araceli Silva WPtel: [phone] [facility] [place] (15 min) Moderate 12/03/2015 Visit Plan: [...] nonhealing. 11/01/2015 Appointment: Ila Kennedy WPtel: [phone] [phone] [place] (15 min) Moderate 11/01/2015 Patient Education: Patient Medication Summary Completed 11/01/2015 Visit Plan: Chronic Pain Syndrome - pt has chronic pain - has been maintained on current medications, has not sought out other medications , only uses PRN pain medications as directed, and understands the consequences of over-medication. Muscle spasms - recommended muscle rub. 09/04/2015 Appointment: [facility] Silva [facility]Ptel: [phone] [place] (15 min) Moderate 09/04/2015 Patient Education: Patient Medication Summary Completed 09/04/2015 Visit Plan: Ecchymosis/hematoma - improving - discussed natural progression of hematomas - watchful waiting. 2015 Appointment: Araceli Silva WPtel: [phone] [facility] [place] (15 min) Moderate 2015 Patient Education: Patient Medication Summary Completed 2015 Visit Plan: Cellulitis - continue with oral antibiotics as previously directed, return to clinic as previously directed, call for acute change in symptoms, worsening redness, warmth, discharge. 07/18/2015 Appointment: Ila Kennedy WPtel: [phone] [place] (30 min) Complex 07/18/2015 Patient [...] center/surgery center. 07/02/2015 Appointment: [facility] Silva [facility]Ptel: [phone] [place] (15 min) Moderate 07/02/2015 [...] with ambulation. 04/09/2015 Appointment: Araceli Silva WPtel: [address] [place] [address] (15 min) Moderate 04/09/2015 Patient Education: Patient [...] supplementation. 02/08/2015 Appointment: [facility]Ptel[phone] (15 min) Moderate 02/08/2015 Patient [...] evening. 12/11/2014 Appointment: [facility]Ptel: [phone] (15 min) Moderate 12/11/2014 Patient [...] - improved. 11/09/2014 Appointment: Araceli Silva WPtel: [address] [place], [place] [phone] (15 min) Moderate 11/09/2014 Patient Education: Patient Medication Summary Completed 11/09/2014 Patient Education: Hypertension Completed 11/09/2014 Visit Plan: Leg pain/cellulitis of leg - start on the doxycycline twice daily - take this x 2 weeks, if the symptoms in your leg/ thigh are not completely resolved, there is a refill that is available. start on a probiotic one pill daily ([employer] or [employer]) this will help prevent the development of a bad type of diarrhea that can occur when taking antibiotics. Ulcer of toe - improving. 10/23/2014 Appointment: Araceli Silva WPtel: [address] [place], [place] [phone] (15 min) Moderate 10/23/2014 Patient Education: Patient Medication Summary Completed 10/23/2014 Visit Plan: Ulcer - keep lesion covered, antibiotic ointment to be used, monitor - call if redness increases or starts streaking up the foot. 10/16/2014 Appointment: Araceli Silva WPtel: [address] [place], [place] [phone] (15 min) Moderate 10/16/2014 Patient Education: Patient [...] peripheral edema. 09/14/2014 Appointment: Araceli Silvatel: 101[address] [facility] Follow up 09/14/2014 Patient Education: [...] medication. 07/12/2014 Appointment: [facility] Silva [facility]Ptel[phone] [place] ([place] New Patient 07/12/2014 Patient Education: Patient Medication Summary Completed 07/12/2014 Patient Education: Hypertension Completed 07/12/2014 Referral: Dr Virgen Referral Completed Referral: External, Ordering Provider Referral Completed Referral: [facility] WPtel: Referral Initiated Instructions Comment [...] of stomach upset or stomach pain. . Hypertension - well controlled - continue [...] Injection of kenalog 1mL - 40mg - [employer] - lot #[id number] , expires oct 2017 Chronic Pain Syndrome [...] her ambulation and safety with ambulation. . Chronic Pain Syndrome - pt has [...] start on a probiotic one pill daily ([employer] or [employer]) this will help prevent the development of a bad type of diarrhea that can occur when taking antibiotics. . Leg pain/cellulitis of leg - start on the doxycycline twice daily - take this x 2 weeks, if the symptoms in your leg/thigh are not completely resolved, there is a refill that is available. start on a probiotic one pill daily ([employer] or [employer]) this will help prevent the development of a bad type of diarrhea that can occur when taking antibiotics. Ulcer of toe - improving. . Chronic Pain Syndrome - pt has [...] removal of blood from shoulder . Hemarthrosis shoulders - 70mL from left [...] and understands the consequences of over-medication. . Ulcer - keep lesion covered, antibiotic ointment to be used, monitor - call if redness increases or starts streaking up the foot. . Urge Incontinence - continue with myrbetric [...] hands/fingers. We will contact [facility] in [place] for paperwork regarding the scooter. . Hypertension [...] and understands the consequences of over-medication. . Lymphedema of upper and lower extremities [...] of breath -will send rx to [facility] next mammogram will be due in Oct. [...] assure normal liver response to medications. . Tick Bite - pt given script for treatment of infected tick bite, call for symptoms of worsening infection or nonhealing. bumex daily in the afternoon . Edema-worsening- [...] to continue with use of compression sleeves. [id number] sep 2018 bristol 2ml kenalog . Edema/Lymphedema [...] stable on fentanyl - monitor symptoms. . Hypertension - well controlled - continue [...] further attempt to reduce peripheral edema. . Cellulitis - continue with oral antibiotics [...] to continue with use of compression sleeves. take lasix daily x 10 days then [...] should help to decrease the bladder spasms we are going to check the iron [...] directed, and understands the consequences of over-medication. Qjfop-oewhelkakt-[id number] with lasix/metolazone -if swelling/weight increase, okay to [...] office. two old goats muscle rub from [employer] and home. . Chronic Pain Syndrome - [...] topical medication. Anemia - check cbc today. bumex daily in the afternoon . [...] see if this helps her pain . Edema/Lymphedema - prn metalozone rx sent [...] continue with fentanyl and oxycodone scheduled. . Chronic Pain Syndrome - pt has chronic pain - has been maintained on current medications, has not sought out other medications, only uses PRN pain medications as directed, and understands the consequences of over- medication. Osteoporosis - prolia injections to be ordered for the pt through the cancer center/surgery center.
--- OUTSIDE RECORDS SUMMARY | 2018-06-03 16:41 | XMS REPORT | CCD ---
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 Name Role Phone PP Unavailable CCM Unavailable Summary Purpose Interface Exchange Insurance Providers Payer name Policy type / Coverage type Covered democrat ID Effective Begin Date Effective End Date [place] [employer] Medicare Part B [id number] 2017 Unknown AET[employer] Medicare Part B [id number] Unknown Family history Father Diagnosis Age At [...] Unknown Retired 07/12/[address]: 5457226 Quit over 10 years ago 1968 07/12/2014 [...] ICD-9: 276.1 ICD-10: E87.1 Active 03/03/2018 Unknown Acute bronchitis, unspecified ICD-9: 466.0 ICD-10: J20.9 Active 02/12/2018 Unknown Chronic obstructive pulmonary disease, unspecified ICD-9: 496 ICD-10: J44.9 Active 02/12/2018 Unknown Cough ICD-9: 786.2 ICD-10: R05 Active 02/09/2018 Unknown Diarrhea, unspecified ICD-9: 787.91 ICD-10: R19.7 Active 02/09/2018 Unknown Generalized edema ICD- 9: [...] hyponatremia ICD-9: 276.1 ICD-10: E87.1 03/03/2018 Active Acute bronchitis, unspecified ICD-9: 466.0 ICD-10: J20.9 02/12/2018 Active Chronic obstructive pulmonary disease, unspecified ICD-9: 496 ICD-10: J44.9 02/12/2018 Active Cough ICD-9: 786.2 ICD-10: R05 02/09/2018 Active Diarrhea, unspecified ICD-9: 787.91 ICD-10: R19.7 02/09/2018 Active Generalized edema ICD- 9: 782.3 [...] Fill Instructions metolazone 10 mg tablet RxNorm: 605330 1 Tablet(s) PO every other day uncontrolled edema 04/08/2018 12/03/2018 Active fentanyl 100 mcg/hr transdermal patch RxNorm: 307352 1 Patch TD Q72H use with 25mcg/hr patch 04/07/2018 05/06/2018 Active fentanyl 25 mcg/hr transdermal patch RxNorm: 406647 1 Patch TD Q72H use with 100mcg patch for a total of 125mcg daily 04/07/2018 05/06/2018 Active potassium chloride ER 10 mEq tablet,extended release(part/ cryst) RxNorm: 5807417 2 Tablet(s) PO TID 03/30/2018 07/27/2018 Active oxycodone 30 mg tablet RxNorm: 5170455 1/2 Tablet(s) PO Q6 05/15/2018 Active fentanyl 25 mcg/hr transdermal patch RxNorm: 497729 1 Patch TD Q72H use with 100mcg patch for a total of 125mcg daily 03/17/2018 04/06/2018 Inactive Lasix 40 mg tablet RxNorm: 498092 Tablet(s) PO TAKE 1 TABLET BY MOUTH TWICE DAILY 03/04/2018 No Stop Date Active fentanyl 100 mcg/hr transdermal patch RxNorm: 527446 1 Patch TD Q72H use with 25mcg/hr patch 03/03/2018 04/01/2018 Inactive potassium chloride ER 10 mEq capsule,extended release RxNorm: 349746 2 Capsule(s) PO TID 03/03/2018 03/29/2018 Inactive albuterol sulfate 2.5 mg/3 mL (0.083 %) solution for nebulization RxNorm: 967244 3 Milliliter(s) INH Q4 PRN 02/18/2018 No Stop Date Active cefdinir 300 mg capsule RxNorm: 791546 1 Capsule(s) PO BID 02/24/2018 Inactive cefdinir 300 mg capsule RxNorm: 622585 1 Capsule(s) PO BID 02/17/2018 Inactive Flonase Allergy Relief 50 mcg/actuation nasal spray, suspension RxNorm: 2083645 2 [place] NASAL daily 02/12/20182017 Inactive Zithromax Z-Humberto 250 mg tablet RxNorm: 559903 1 Tablet(s) PO UD 02/12/2018 02/16/2018 Inactive Lomotil 2.5 mg-0.025 mg tablet RxNorm: 9999353 1 Tablet(s) PO BID PRN 02/09/2018 No Stop Date Active fentanyl 25 mcg/hr transdermal patch RxNorm: 324974 1 Patch TD Q72H use with 100mcg patch for a total of 125mcg daily 02/09/2018 03/10/2018 Inactive oxycodone 30 mg tablet RxNorm: 5364502 1/2 Tablet(s) PO Q6 03/14/2018 Inactive metolazone 10 mg tablet RxNorm: 694390 1 Tablet(s) PO QAM as needed uncontrolled edema 01/14/2018 03/14/2018 Inactive fentanyl 100 mcg/hr transdermal patch RxNorm: 252361 1 Patch TD Q72H use with 25mcg/hr patch 01/14/2018 02/12/2018 Inactive fentanyl 25 mcg/hr transdermal patch RxNorm: 905809 1 Patch TD Q72H use with 100mcg patch for a total of 125mcg daily 01/14/2018 02/08/2018 Inactive metolazone 10 mg tablet RxNorm: 587017 1 Tablet(s) PO every other day as needed uncontrolled edema 01/07/2018 01/13/2018 Inactive metolazone 10 mg tablet RxNorm: 760877 1 Tablet(s) PO every other day as needed uncontrolled edema 01/07/2018 01/06/2018 Inactive Cipro 500 mg tablet RxNorm: 483054 1 Tablet(s) PO BID 201701/05/2018 Inactive Cipro 500 mg tablet RxNorm: 279811 1 Tablet(s) PO BID 201701/15/2018 Inactive Cardizem CD 360 mg capsule,extended release RxNorm: 879524 1 Capsule(s) PO daily 01/05/2018 05/04/2018 Active potassium chloride ER 10 mEq tablet,extended release(part/ cryst) RxNorm: 6659327 2 Capsule(s) PO TID when taking lasix 01/05/2018 05/04/2018 Active potassium chloride ER 10 mEq capsule,extended release RxNorm: 777079 Capsule(s) TAKE 1 CAPSULE BY MOUTH TWICE DAILY WHEN TAKING LASIX (FUROSEMIDE) 11/27/2017 03/02/2018 Inactive potassium chloride ER 10 mEq capsule,extended release RxNorm: 037239 Capsule(s) TAKE 1 CAPSULE BY MOUTH TWICE DAILY WHEN TAKING LASIX (FUROSEMIDE) 11/27/2017 11/26/2017 Inactive fentanyl 25 mcg/hr transdermal patch RxNorm: 262543 1 Patch TD Q72H use with 100mcg patch for a total of 125mcg daily 11/27/2017 12/26/2017 Inactive bumetanide 0.5 mg tablet RxNorm: 557415 1 Tablet(s) PO daily 12/23/2017 Inactive in the afternoon x 3 days then as needed per Dr Silva fentanyl 100 mcg/hr transdermal patch RxNorm: 433398 1 Patch TD Q72H use with 25mcg/hr patch 11/27/2017 12/26/2017 Inactive oxycodone 30 mg tablet RxNorm: 3871912 1/2 Tablet(s) PO Q6 12/27/2017 Inactive fentanyl 100 mcg/hr transdermal patch RxNorm: 540442 1 Patch TD Q72H use with 25mcg/hr patch 10/29/2017 11/26/2017 Inactive Lasix 20 mg tablet RxNorm: 860295 TAKE 1 TABLET BY MOUTH TWICE DAILY 10/29/2017 03/03/2018 Inactive fentanyl 25 mcg/hr transdermal patch RxNorm: 200260 1 Patch TD Q72H use with 100mcg patch for a total of 125mcg daily 10/29/2017 11/26/2017 Inactive pantoprazole 40 mg tablet,delayed release RxNorm: 291770 Tablet(s) Take 1 tablet by mouth daily 10/21/2017 04/18/2018 Active - Ref: [id number] potassium chloride ER 10 mEq capsule,extended release RxNorm: 072351 TAKE 1 CAPSULE BY MOUTH TWICE DAILY WHEN TAKING LASIX (FUROSEMIDE) 10/09/2017 11/26/2017 Inactive fentanyl 25 mcg/hr transdermal patch RxNorm: 816416 1 Patch TD Q72H use with 100mcg patch for a total of 125mcg daily 10/01/2017 10/28/2017 Inactive fentanyl 100 mcg/hr transdermal patch RxNorm: 768961 1 Patch TD Q72H use with 25mcg/hr patch 10/01/2017 10/28/2017 Inactive potassium chloride ER 10 mEq tablet,extended release(part/ cryst) RxNorm: 6795062 1 Capsule(s) PO BID when taking lasix 09/22/2017 01/04/2018 Inactive fentanyl 100 mcg/hr transdermal patch RxNorm: 939185 1 Patch TD Q72H use with 25mcg/hr patch 08/31/2017 09/29/2017 Inactive Kenalog 40 mg/mL suspension for injection RxNorm: 2280719 1 Milliliter(s) Inj 08/31/2017 08/31/2017 Inactive fentanyl 25 mcg/hr transdermal patch RxNorm: 289332 1 Patch TD Q72H use with 100mcg patch for a total of 125mcg daily 08/31/2017 09/29/2017 Inactive oxycodone 30 mg tablet RxNorm: 2424181 1/2 Tablet(s) PO Q6 04/201710/28/2017 Inactive cyanocobalamin (vit B-12) 1,000 mcg/mL injection solution RxNorm: 635842 1 Milliliter(s) Inj monthly 08/21/201708/15 Active please provide her with syringe/needle for injection cyanocobalamin (vit B-12) 1,000 mcg/mL injection solution RxNorm: 450620 1 Milliliter(s) Inj monthly 08/21/201708/20 Inactive please provide her with syringe/needle for injection Kenalog 40 mg/mL suspension for injection RxNorm: 2552136 2 Milliliter(s) Inj 1mL in each shoulder 08/21/2017 08/21/2017 Inactive cyanocobalamin (vit B-12) 1,000 mcg/mL injection solution RxNorm: 909768 1 Milliliter(s) Inj monthly 08/21/201708/20 Inactive please provide her with syringe/needle for injection Kenalog 40 mg/mL suspension for injection RxNorm: 2186161 2 Milliliter(s) Inj UD 08/12/2017 08/12/2017 Inactive fentanyl 25 mcg/hr transdermal patch RxNorm: 850439 1 Patch TD Q72H use with 100mcg patch for a total of 125mcg daily 08/05/2017 08/30/2017 Inactive fentanyl 100 mcg/hr transdermal patch RxNorm: 830002 1 Patch TD Q72H use with 25mcg/hr patch 08/05/2017 08/30/2017 Inactive Kenalog 40 mg/mL suspension for injection RxNorm: 3672758 2 Milliliter(s) Inj 1mL per shoulder 08/05/2017 08/05/2017 Inactive clindamycin HCl 150 mg capsule RxNorm: 873999 1 Capsule(s) PO QID Dr Shultz prescribed 07/23/2017 07/29/2017 Inactive prednisone 5 mg tablet RxNorm: 445963 1 Tablet(s) PO daily 11/201707/03/2018 Active fentanyl 25 mcg/hr transdermal patch RxNorm: 436529 1 Patch TD Q72H use with 100mcg patch for a total of 125mcg daily 07/01/2017 07/30/2017 Inactive Lasix 20 mg tablet RxNorm: 433424 1 Tablet(s) PO BID 201710/28/2017 Inactive fentanyl 100 mcg/hr transdermal patch RxNorm: 355276 1 Patch TD Q72H use with 25mcg/hr patch 07/01/2017 07/30/2017 Inactive potassium chloride ER 10 mEq capsule,extended release RxNorm: 098885 1 Capsule(s) PO BID when taking lasix 07/01/20172017 Inactive oxycodone 30 mg tablet RxNorm: 3739272 1/2 Tablet(s) PO Q6 08/22/2017 Inactive fentanyl 100 mcg/hr transdermal patch RxNorm: 807790 1 Patch TD Q72H use with 25mcg/hr patch 05/07/2017 06/05/2017 Inactive fentanyl 25 mcg/hr transdermal patch RxNorm: 830843 1 Patch TD Q72H use with 100mcg patch for a total of 125mcg daily 05/07/2017 06/05/2017 Inactive fentanyl 100 mcg/hr transdermal patch RxNorm: 216698 1 Patch TD Q72H 04/08/2017 05/06/2017 Inactive fentanyl 25 mcg/hr transdermal patch RxNorm: 352064 1 Patch TD Q72H use with 100mcg patch for a total of 125mcg daily 04/08/2017 05/06/2017 Inactive Kenalog 40 mg/mL suspension for injection RxNorm: 3746153 1.5 Milliliter(s) Inj 04/02/2017 04/02/2017 Inactive fentanyl 100 mcg/hr transdermal patch RxNorm: 379755 1 Patch TD Q72H 03/12/2017 04/07/2017 Inactive fentanyl 25 mcg/hr transdermal patch RxNorm: 827195 1 Patch TD Q72H use with 100mcg patch for a total of 125mcg daily 03/12/2017 04/07/2017 Inactive oxycodone 30 mg tablet RxNorm: 9849298 1/2 Tablet(s) PO Q6 09/201704/07/2017 Inactive cyanocobalamin (vit B-12) 1,000 mcg/mL injection syringe RxNorm: 049864 1 Milliliter(s) Inj monthly 02/16/2017 No Stop Date Active please provide with supplys needed for injection fentanyl 100 mcg/hr transdermal patch RxNorm: 726369 1 Patch TD Q72H 02/06/2017 03/07/2017 Inactive Myrbetriq 50 mg tablet,extended release RxNorm: 2152040 1 Tablet(s) PO QPM 12/11/2016 07/22/2017 Inactive oxycodone 30 mg tablet RxNorm: 7777284 1/2 Tablet(s) PO Q6 10/201601/06/2017 Inactive naproxen 500 mg tablet RxNorm: 635719 1 Tablet(s) PO BID Take 1 tablet by mouth two times daily as needed 12/08/201607/08 Inactive - First Attempt Ref: [id number] Myrbetriq 50 mg tablet,extended release RxNorm: 7894805 1 Tablet(s) PO QPM 11/17/2016 12/10/2016 Inactive fentanyl 100 mcg/hr transdermal patch RxNorm: 285392 1 Patch TD Q72H 11/12/2016 12/11/2016 Inactive Vesicare 10 mg tablet RxNorm: 666295 1 Tablet(s) PO QPM 201611/18/2016 Inactive oxycodone 10 mg tablet RxNorm: 6564994 1-2 Tablet(s) PO Q4 PRN as needed to take between 30mg dose if needed for extra pain control 201612/07/2016 Inactive fentanyl 75 mcg/hr transdermal patch RxNorm: 218109 1 TD Q72H 10/22/2016 11/10/2016 Inactive oxycodone 10 mg tablet RxNorm: 5206732 1-2 Tablet(s) PO Q4 PRN as needed to take between 30mg dose if needed for extra pain control 201611/04/2016 Inactive Kenalog 40 mg/mL suspension for injection RxNorm: 5349308 1 Milliliter(s) Inj 10/02/2016 10/02/2016 Inactive Kenalog 40 mg/mL suspension for injection RxNorm: 1509985 1 Milliliter(s) Inj 09/12/2016 09/12/2016 Inactive cyclobenzaprine 5 mg tablet RxNorm: 431334 1 Tablet(s) PO Q8 as needed muscle spasms 09/11/2016 07/22/2017 Inactive prednisone 10 mg tablets in a dose pack RxNorm: 704411 1 Tablet(s) PO UD 09/09/2016 06/23/2017 Inactive potassium chloride ER 10 mEq capsule,extended release RxNorm: 862372 1 Capsule(s) PO BID as needed when taking lasix 08/26/2016 06/30/2017 Inactive Lasix 20 mg tablet RxNorm: 476241 1 Tablet(s) PO BID daily x 10 days then as needed edema 08/26/2016 12/23/2016 Inactive naproxen 500 mg tablet RxNorm: 693121 Take 1 tablet by mouth two times daily as needed 08/18/2016 11/15/2016 Inactive - First Attempt Ref: [id number] Lasix 20 mg tablet RxNorm: 070430 1 Tablet(s) PO QAM daily x 10 days then as needed edema 08/18/2016 08/25/2016 Inactive Vesicare 5 mg tablet RxNorm: 087530 1 Tablet(s) PO QPM 201611/04/2016 Inactive potassium chloride ER 10 mEq capsule,extended release RxNorm: 573447 1 Capsule(s) PO QAM as needed when taking lasix 08/18/2016 08/25/2016 Inactive Myrbetriq 25 mg tablet,extended release RxNorm: 8691185 1 Tablet(s) PO QHS 07/14/2016 07/29/2016 Inactive pantoprazole 40 mg tablet,delayed release RxNorm: 980179 Take 1 tablet by mouth daily 06/30/2016 12/26/2016 Inactive - Ref: [id number] Embeda 20 mg-0.8 mg capsule, extend release, oral only RxNorm: 891518 1 Capsule(s ) PO daily 06/04/2016 06/03/2016 Inactive Embeda 20 mg-0.8 mg capsule, extend release, oral only RxNorm: 230206 1 Capsule(s ) PO daily 06/04/2016 07/01/2016 Inactive oxycodone 10 mg tablet RxNorm: 1661807 1 Tablet(s) PO QID as needed to take between 30mg dose if needed for extra pain control 201606/10/2016 Inactive oxycodone 30 mg tablet RxNorm: 7376794 1 Tablet(s) PO Q6 201611/04/2016 Inactive cyanocobalamin (vit B-12) 1,000 mcg/mL injection solution RxNorm: 327476 1 Milliliter(s) Inj monthly 02/22/201602/15 Inactive she also needs syringes/ needles for this solution QS oxycodone 30 mg tablet RxNorm: 8760627 1 Tablet(s) PO Q6 201503/19/2016 Inactive oxycodone 10 mg tablet RxNorm: 5121245 1 Tablet(s) PO QID as needed to take between 30mg dose if needed for extra pain control 201503/19/2016 Inactive oxycodone 10 mg tablet RxNorm: 8669898 1 Tablet(s) PO QID as needed to take between 30mg dose if needed for extra pain control 201502/18/2016 Inactive oxycodone 30 mg tablet RxNorm: 9980638 1 Tablet(s) PO Q6 201502/18/2016 Inactive pantoprazole 40 mg tablet,delayed release RxNorm: 421783 Take 1 tablet by mouth daily 01/22/2016 06/29/2016 Inactive - First Attempt Ref: [id number] oxycodone 30 mg tablet RxNorm: 3078693 1 Tablet(s) PO Q6 201501/28/2016 Inactive oxycodone 10 mg tablet RxNorm: 6145924 1 Tablet(s) PO QID as needed take between 20mg dose if needed for extra pain control 11/07/2015 12/06/2015 Inactive oxycodone 20 mg tablet RxNorm: 1686966 1 Tablet(s) PO Q6 as needed 11/07/2015 12/31/2015 Inactive doxycycline hyclate 100 mg tablet RxNorm: 871745 1 Tablet(s) PO BID 11/01/2015 11/10/2015 Inactive potassium chloride ER 10 mEq capsule,extended release RxNorm: 870292 1 Capsule(s) PO TIW as needed when taking lasix 09/04/2015 08/17/2016 Inactive Voltaren 1 % topical gel RxNorm: 835393 2 Gram(s) TOP QID 08/2909/03/2015 Inactive pa approved Voltaren 1 % topical gel RxNorm: 194682 2 Gram(s) TOP QID 08/0808/29/2015 Inactive naproxen 500 mg tablet RxNorm: 211929 1 Tablet(s) PO BID 201508/17/2016 Inactive naproxen 500 mg tablet RxNorm: 161009 1 Tablet(s) PO BID 201508/08/2015 Inactive doxycycline hyclate 100 mg tablet RxNorm: 550069 1 Tablet(s) PO BID do not take calcium/vitamin d while on antibiotic 07/18/2015 07/31/2015 Inactive Vitamin D2 50,000 unit capsule RxNorm: 335508 1 Capsule(s) PO QW 07/02/2015 11/18/2015 Inactive Premarin 0.3 mg tablet RxNorm: 694615 1 Tablet(s) PO daily 12/201505/09/2015 Inactive Premarin 0.3 mg tablet RxNorm: 685075 1 Tablet(s) PO daily 12/201503/17/2016 Inactive simvastatin 40 mg tablet RxNorm: 218372 1 Tablet(s) PO daily 03/17/2016 Inactive spironolactone 25 mg tablet RxNorm: 669462 TAKE ONE TABLET BY MOUTH DAILY 05/07/2015 05/27/2016 Inactive potassium chloride ER 10 mEq capsule,extended release RxNorm: 235168 1 Capsule(s) PO TIW as needed when taking lasix 04/17/2015 09/03/2015 Inactive alendronate 70 mg tablet RxNorm: 213011 1 Tablet(s) PO weekly QW 04/17/2015 07/01/2015 Inactive Vitamin D2 50,000 unit capsule RxNorm: 138156 1 Capsule(s) PO QW 03/30/2015 06/27/2015 Inactive Vitamin D2 50,000 unit capsule RxNorm: 467179 1 Capsule(s) PO QW 03/21/2015 03/29/2015 Inactive cyanocobalamin (vit B-12) 1,000 mcg/mL injection solution RxNorm: 745945 1 Milliliter(s) Inj monthly 03/19/201502/20 Inactive cyanocobalamin (vit B-12) 1,000 mcg/mL injection solution RxNorm: 171775 1 Milliliter(s) Inj monthly 03/16/201503/18 Inactive cyanocobalamin (vit B-12) 1,000 mcg/mL injection solution RxNorm: 780510 1 Milliliter(s) Inj monthly 03/16/201503/15 Inactive pantoprazole 40 mg tablet,delayed release RxNorm: 806812 1 Tablet(s) PO daily 03/05/2015 01/21/2016 Inactive Lasix 20 mg tablet RxNorm: 765395 1 Tablet(s) PO TIW as needed edema 02/08/2015 02/02/2016 Inactive oxycodone 10 mg tablet RxNorm: 1301669 1 Tablet(s) PO QID as needed take between 20mg dose if needed for extra pain control 11/09/2014 12/08/2014 Inactive oxycodone 20 mg tablet RxNorm: 6817965 1 Tablet(s) PO Q6 as needed 10/25/2014 11/06/2015 Inactive doxycycline hyclate 100 mg tablet RxNorm: 311252 1 Tablet(s) PO BID 10/23/2014 11/19/2014 Inactive Cipro 500 mg tablet RxNorm: 504342 1 Tablet(s) PO BID 201410/16/2014 Inactive Cipro 500 mg tablet RxNorm: 845642 1 Tablet(s) PO BID 201410/09/2014 Inactive oxycodone 20 mg tablet RxNorm: 3587332 1 Tablet(s) PO Q6 as needed 09/25/2014 10/24/2014 Inactive Lasix 20 mg tablet RxNorm: 142716 1 Tablet(s) PO TIW as needed edema 09/14/2014 01/11/2015 Inactive potassium chloride ER 10 mEq capsule,extended release RxNorm: 189370 1 Capsule(s) PO TIW as needed when taking lasix 09/14/2014 01/11/2015 Inactive doxycycline hyclate 100 mg tablet RxNorm: 929263 1 Tablet(s) PO BID 09/05/2014 09/14/2014 Inactive doxycycline hyclate 100 mg tablet RxNorm: 631180 1 Tablet(s) PO BID 09/05/2014 09/04/2014 Inactive oxycodone 20 mg tablet RxNorm: 9727489 1 Tablet(s) PO Q6 as needed 08/29/2014 09/24/2014 Inactive spironolactone 25 mg tablet RxNorm: 261590 1 Tablet(s) PO daily 08/11/2014 03/08/2015 Inactive oxycodone 20 mg tablet RxNorm: 5151382 1 Tablet(s) PO Q6 as needed 08/02/2014 08/28/2014 Inactive Vitamin D3 2,000 unit tablet RxNorm: 022645 1 Tablet(s) PO daily 07/14/2014 No Stop Date Active Vitamin D2 50,000 unit capsule RxNorm: 806475 1 Capsule(s) PO QW 07/14/2014 10/11/2014 Inactive Vitamin D2 50,000 unit capsule RxNorm: 909323 1 Capsule(s) PO QW 07/14/2014 07/13/2014 Inactive Prolia 60 mg/mL subcutaneous syringe RxNorm: 309113 Milliliter(s) SQ EVERY 6 MONTHS No Start Date Active Carafate 1 gram tablet RxNorm: 001594 1 Tablet(s) PO BID No Start Date Active Miralax oral RxNorm: 470645 oral No Start Date Active Stool Softener oral RxNorm: 49570 oral No Start Date Active Calcium + Vitamin D oral RxNorm: 4018 oral No Start Date Active naproxen 500 mg tablet RxNorm: 974605 1 Tablet(s) PO BID No Start Date 08/05/2015 Inactive albuterol sulfate 2.5 mg/3 mL (0.083 %) solution for nebulization RxNorm: 626533 3 Milliliter(s) INH Q4 PRN No Start Date 02/17/2018 Inactive oxycodone 20 mg tablet RxNorm: 5054114 1 Tablet(s) PO Q6 as needed No Start Date 08/01/2014 Inactive aspirin 81 mg tablet RxNorm: 171391 1 Tablet(s) PO daily No Start Date 07/22/2017 Inactive simvastatin 40 mg tablet RxNorm: 113122 1 Tablet(s) PO daily No Start Date 05/09/2015 Inactive cyanocobalamin (vit B-12) 1,000 mcg/mL injection syringe RxNorm: 061575 1 Inj monthly No Start Date 02/15/2017 Inactive Reglan 10 mg tablet RxNorm: 464057 1 Tablet(s) PO as needed No Start Date 07/29/2016 Inactive alendronate 70 mg tablet RxNorm: 216565 1 Tablet(s) PO weekly No Start Date 04/16/2015 Inactive Protonix 40 mg tablet,delayed release RxNorm: 721823 1 Tablet(s) PO daily No Start Date 03/04/2015 Inactive cyclobenzaprine 5 mg tablet RxNorm: 057628 1 Tablet(s) PO Q8 as needed muscle spasms No Start Date 09/10/2016 Inactive Vitamin D3 1,000 unit capsule RxNorm: 520825 1 Capsule(s) PO daily No Start Date 07/13/2014 Inactive Cardizem CD 360 mg capsule,extended release RxNorm: 985300 1 Capsule(s) PO daily No Start Date 01/04/2018 Inactive prednisone 10 mg tablets in a dose pack RxNorm: 207852 1 Tablet(s) PO UD No Start Date 09/08/2016 Inactive Medication Administered Medication Codes Instructions Start Date Status Kenalog 40 mg/mL suspension for injection RxNorm: 5247895 1Milliliter 08/31/2017 No longer Active Kenalog 40 mg/mL suspension for injection RxNorm: 8585958 2Milliliter 08/21/2017 No longer Active Kenalog 40 mg/mL suspension for injection RxNorm: 1457796 2MilliliterUD 08/12/2017 No longer Active Kenalog 40 mg/mL suspension for injection RxNorm: 9651397 2Milliliter 08/05/2017 No longer Active Kenalog 40 mg/mL suspension for injection RxNorm: 7281848 1.5Milliliter 04/02/2017 No longer Active Kenalog 40 mg/mL suspension for injection RxNorm: 3003741 1Milliliter 10/02/2016 No longer Active Kenalog 40 mg/mL suspension for injection RxNorm: 5916509 1Milliliter 09/12/2016 No longer Active Immunizations Vaccine [...] pain syndrome ICD-10: G89.4 ICD-9: 338.4 03/03/2018 Chronic obstructive pulmonary disease, unspecified ICD-10: J44.9 ICD-9: 496 02/12/2018 Acute bronchitis, unspecified ICD-10: J20.9 ICD-9: 466.0 02/12/2018 Cough ICD-10: R05 ICD-9: 786.2 02/12/2018 Generalized edema ICD-10: R60.1 ICD-9: 782.3 02/09/2018 Diarrhea, unspecified ICD-10: R19.7 ICD-9: 787.91 02/09/2018 Lymphedema, not elsewhere classified ICD-10: I89.0 ICD-9: 457.1 01/14/2018 Pain in left shoulder ICD-10: M25.512 ICD-9: 719.41 11/10/2017 Primary osteoarthritis, left shoulder ICD-10: M19.012 ICD-9: 715.91 11/10/2017 Rheumatoid arthritis without rheumatoid factor, right shoulder ICD-10: M06.011 ICD-9: 714.0 11/10/2017 Pain in right shoulder ICD-10: M25.511 ICD-9: 719.41 11/10/2017 Primary osteoarthritis, 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 ICD-9: 715.91 11/10/2017 Localized edema ICD-10: R60.0 ICD-9: 782.3 11/10/2017 Rheumatoid arthritis without rheumatoid factor, left shoulder ICD-10: M06.012 ICD-9: 714.0 11/10/2017 Anemia, unspecified ICD-10: D64.9 ICD-9: 285.9 10/21/2017 Chronic atrial fibrillation ICD-10: I48.2 ICD-9: 427.31 09/15/2017 Hemarthrosis, left shoulder ICD-10: M25.012 ICD-9: 719.11 08/31/2017 Hemarthrosis, right shoulder ICD-10: M25.011 ICD-9: 719.11 08/05/2017 Essential (primary) hypertension ICD-10: I10 ICD-9: 401.9 08/05/2017 Hypomagnesemia ICD-10: E83.42 ICD-9: 275.2 01/08/2017 Encounter for immunization ICD-10: Z23 ICD-9: V04.81 12/08/2016 Urge incontinence ICD-10: N39.41 ICD-9: 788.31 11/17/2016 Spondylosis without myelopathy or radiculopathy, cervical region ICD-10: M47.812 ICD-9: 721.0 11/10/2016 Other iron deficiency anemias ICD-10: D50.8 ICD-9: 280.1 11/10/2016 Primary osteoarthritis, right hand ICD-10: M19.041 ICD-9: 715.94 11/10/2016 Other chronic pain ICD-10: G89.29 ICD-9: 338.29 11/05/2016 Primary osteoarthritis, left hand ICD-10: M19.042 ICD-9: 715.94 10/07/2016 Presbycusis, bilateral ICD-10: H91.13 ICD-9: 388.01 10/07/2016 Sacroiliitis, not elsewhere classified ICD-10: M46.1 ICD-9: 720.2 09/12/2016 Low back pain ICD-10: M54.5 ICD-9: 724.2 09/12/2016 Vitamin D deficiency, unspecified ICD-10: E55.9 [...] anemia, unspecified ICD-10: D50.9 ICD-9: 280.9 04/10/2015 Impacted cerumen, bilateral ICD-10: H61.23 ICD-9: 389.8 04/09/2015 Otalgia, bilateral ICD-10: H92.03 ICD-9: 388.70 04/09/2015 Primary osteoarthritis, unspecified site ICD-10: M19.91 ICD-9: 715.10 04/09/2015 Encounter for immunization ICD-10: Z23 ICD-9: V03.82 12/11/2014 EDEMA ICD-9: 782.3 11/09/2014 ESSENTIAL HYPERTENSION ICD-9: 401.9 11/09 Ulcer of toe ICD-9: 707.15 10/23/2014 Leg pain ICD-9: 729.5 10/23/2014 Chronic pain ICD-9: 338.29 07/12/2014 HYPERLIPIDEMIA ICD-9: 272.4 07/12/2014 VITAMIN D DEFICIENCY ICD-9: 268.9 2014 Esophageal reflux ICD-9: 530.81 2014 Osteoporosis ICD-9: 733.00 07/12/2014 Reason For Visit Reason For Visit Effective Dates Notes diarrhea 03/03/2018 cough 02/12/2018 Hospital Follow Up [...] Item Item Code Result Date Comp Metabolic Nwz087 NA 134 mEq/L 03/03/2018 Comp Metabolic Mky022 K 3.3 mEq/L 03/03/2018 Comp Metabolic Arp407 CL 90 mEq/L 03/03/2018 Comp Metabolic Eld534 CO2 33.0 mEq/L 03/03/2018 Comp Metabolic Ihr030 ANION GAP 14 03/03/2018 Comp Metabolic Owp084 GLUCOSE 146 mg/dL 03/03/2018 Comp Metabolic Cwh973 Creat 1.7 mg/dL 03/03/2018 Comp Metabolic Nww509 eGFR 31 ml/min/1.73m2 03/03/2018 Comp Metabolic Mxa082 BUN 74 mg/dL 03/03/2018 Comp Metabolic Rxz844 B/C Ratio 43.8 Ratio 03/03/2018 Comp Metabolic Dhq425 CALCIUM 8.6 mg/dL 03/03/2018 Comp Metabolic Xsq267 ALK PHOS 70 U/L 03/03/2018 Comp Metabolic Ovp242 AST(SGOT) 14 U/L 03/03/2018 Comp Metabolic Ocm533 ALT(SGPT) 9 U/L 03/03/2018 Comp Metabolic Fuw809 BILI T 0.6 mg/dL 03/03/2018 Comp Metabolic Ukm918 ALBUMIN 3.8 g/dL 03/03/2018 Comp Metabolic Ioi482 TPRO 6.7 g/dL 03/03/2018 Comp Metabolic Jra602 GLOB 2.9 g/dL 03/03/2018 Comp Metabolic Hwb051 A/G Ratio 1.3 Ratio 03/03/2018 Comp Metabolic Som571 Osmo 293 mOsmo 03/03/2018 Cbc With Differential [...] 29.9 pg 03/03/2018 Cbc With Differential Ord2 [place]% 11.1 % 03/03/2018 Cbc With Differential Ord2 [...] 1.38 K/ul 03/03/2018 Cbc With Differential Ord2 [place] ABS# 0.9 K/ul 03/03/2018 Cbc With Differential Ord2 Eos ABS# 0.0 K/ul 03/03/2018 Cbc With Differential Ord2 Baso ABS# 0.1 K/ul 03/03/2018 Tibc Ord40 Iron 75 ug/dl 10/22/2017 Tibc Ord40 UIBC 270 ug/dL 10/22/2017 Tibc Ord40 TIBC 345 ug/dL 10/22/2017 Tibc Ord40 Fe-%Sat 21.7 % 10/22/2017 Prealbumin 400567 PREALBUMIN 33 mg/dL 10/21/2017 Comp Metabolic Loj322 NA 134 mEq/L 10/20/2017 Comp Metabolic Rlf120 K 3.7 mEq/L 10/20/2017 Comp Metabolic Csp164 CL 93 mEq/L 10/20/2017 Comp Metabolic Pah687 CO2 29.0 mEq/L 10/20/2017 Comp Metabolic Rln579 ANION GAP 16 10/20/2017 Comp Metabolic Ldr101 GLUCOSE 115 mg/dL 10/20/2017 Comp Metabolic Fhs374 Creat 0.8 mg/dL 10/20/2017 Comp Metabolic Zjb040 eGFR 73 ml/min/1.73m2 10/20/2017 Comp Metabolic Vqx938 BUN 46 mg/dL 10/20/2017 Comp Metabolic Uyv049 B/C Ratio 57.5 Ratio 10/20/2017 Comp Metabolic Sgb709 CALCIUM 8.7 mg/dL 10/20/2017 Comp Metabolic Spk146 ALK PHOS 56 U/L 10/20/2017 Comp Metabolic Iqk381 AST(SGOT) 19 U/L 10/20/2017 Comp Metabolic Pqs231 ALT(SGPT) 23 U/L 10/20/2017 Comp Metabolic Uyu927 BILI T 0.6 mg/dL 10/20/2017 Comp Metabolic Vce797 ALBUMIN 4.0 g/dL 10/20/2017 Comp Metabolic Qzf781 TPRO 6.6 g/dL 10/20/2017 Comp Metabolic Zxv002 GLOB 2.7 g/dL 10/20/2017 Comp Metabolic Fjn027 A/G Ratio 1.5 Ratio 10/20/2017 Comp Metabolic Rii864 Osmo 281 mOsmo 10/20/2017 Tsh Ord6 TSH [...] 35.4 pg 10/20/2017 Cbc With Differential Ord2 [place]% 9.9 % 10/20/2017 Cbc With Differential Ord2 [...] 1.15 K/ul 10/20/2017 Cbc With Differential Ord2 [place] ABS# 0.6 K/ul 10/20/2017 Cbc With Differential Ord2 Eos ABS# 0.0 K/ul 10/20/2017 Cbc With Differential Ord2 Baso ABS# 0.0 K/ul 10/20/2017 Iron Ord72 Iron 75 ug/dl 10/20/2017 Romie Reflex Profile [id number] ROMIE (BRYANNA) SCREEN NONE DETECTED 01/12/2017 Comp Metabolic Qbz040 NA 129 mEq/L 01/08/2017 Comp Metabolic Ozi836 K 3.9 mEq/L 01/08/2017 Comp Metabolic Gwh302 CL 94 mEq/L 01/08/2017 Comp Metabolic Ped486 CO2 31.0 mEq/L 01/08/2017 Comp Metabolic Tsx264 ANION GAP 8 01/08/2017 Comp Metabolic Cjc593 GLUCOSE 103 mg/dL 01/08/2017 Comp Metabolic Tat530 Creat 0.9 mg/dL 01/08/2017 Comp Metabolic Xps400 eGFR 61 ml/min/1.73m2 01/08/2017 Comp Metabolic Kkx811 BUN 29 mg/dL 01/08/2017 Comp Metabolic Hgn289 B/C Ratio 30.9 Ratio 01/08/2017 Comp Metabolic Fyx114 CALCIUM 8.5 mg/dL 01/08/2017 Comp Metabolic Dic388 ALK PHOS 58 U/L 01/08/2017 Comp Metabolic Qhh642 AST(SGOT) 17 U/L 01/08/2017 Comp Metabolic Bcl835 ALT(SGPT) 10 U/L 01/08/2017 Comp Metabolic Zur049 BILI T 0.4 mg/dL 01/08/2017 Comp Metabolic Mmj510 ALBUMIN 3.0 g/dL 01/08/2017 Comp Metabolic Mqz672 TPRO 5.5 g/dL 01/08/2017 Comp Metabolic Vua335 GLOB 2.5 g/dL 01/08/2017 Comp Metabolic Eym982 A/G Ratio 1.2 Ratio 01/08/2017 Comp Metabolic Law649 Osmo 265 mOsmo 01/08/2017 Cbc With Differential [...] 102.2 fl 01/08/2017 Cbc With Differential Ord2 MCH 33.8 pg 01/08/2017 Cbc With Differential Ord2 [place]% 12.2 % 01/08/2017 Cbc With Differential Ord2 [...] 1.62 K/ul 01/08/2017 Cbc With Differential Ord2 [place] ABS# 0.9 K/ul 01/08/2017 Cbc With Differential [...] 33.1 pg 11/10/2016 Cbc With Differential Ord2 [place]% 9.1 % 11/10/2016 Cbc With Differential Ord2 [...] 0.78 K/ul 11/10/2016 Cbc With Differential Ord2 [place] ABS# 0.5 K/ul 11/10/2016 Cbc With Differential [...] 30.3 pg 10/07/2016 Cbc With Differential Ord2 [place]% 11.8 % 10/07/2016 Cbc With Differential Ord2 [...] 1.54 K/ul 10/07/2016 Cbc With Differential Ord2 [place] ABS# 1.0 K/ul 10/07/2016 Cbc With Differential Ord2 Eos ABS# 0.1 K/ul 10/07/2016 Cbc With Differential Ord2 Baso ABS# 0.0 K/ul 10/07/2016 Comp Metabolic Xfy893 NA 129 mEq/L 08/26/2016 Comp Metabolic Byq058 K 3.9 mEq/L 08/26/2016 Comp Metabolic Dal863 CL 93 mEq/L 08/26/2016 Comp Metabolic Qfr786 CO2 30.0 mEq/L 08/26/2016 Comp Metabolic Wnh634 ANION GAP 10 08/26/2016 Comp Metabolic Vrq729 GLUCOSE 87 mg/dL 08/26/2016 Comp Metabolic Uvi878 Creat 0.6 mg/dL 08/26/2016 Comp Metabolic Sil653 eGFR 96 ml/min/1.73m2 08/26/2016 Comp Metabolic Epg988 BUN 17 mg/dL 08/26/2016 Comp Metabolic Eua018 B/C Ratio 27.0 Ratio 08/26/2016 Comp Metabolic Ssv673 CALCIUM 7.6 mg/dL 08/26/2016 Comp Metabolic Lsz999 ALK PHOS 72 U/L 08/26/2016 Comp Metabolic Awe101 AST(SGOT) 20 U/L 08/26/2016 Comp Metabolic Rmj198 ALT(SGPT) 12 U/L 08/26/2016 Comp Metabolic Uai375 BILI T 0.3 mg/dL 08/26/2016 Comp Metabolic Iqq297 ALBUMIN 2.7 g/dL 08/26/2016 Comp Metabolic Qyz939 TPRO 5.3 g/dL 08/26/2016 Comp Metabolic Evu125 GLOB 2.6 g/dL 08/26/2016 Comp Metabolic Mut994 A/G Ratio 1.1 Ratio 08/26/2016 Comp Metabolic Zyo234 Osmo 260 mOsmo 08/26/2016 Cbc With Differential [...] 88.7 fl 08/26/2016 Cbc With Differential Ord2 [place]% 9.6 % 08/26/2016 Cbc With Differential Ord2 MCH 28.3 pg 08/26/2016 Cbc With Differential Ord2 MCHC 31.9 pg 08/26/2016 Cbc With Differential Ord2 Eos% 0.5 % 08/26/2016 Cbc With Differential Ord2 Baso% 0.4 % 08/26/2016 Cbc With Differential Ord2 PLT 442 K/ul 08/26/2016 Cbc With Differential Ord2 Neut ABS# 6.99 K/ul 08/26/2016 Cbc With Differential Ord2 RDW 14.1 % 08/26/2016 Cbc With Differential Ord2 Lymph ABS# 1.83 K/ul 08/26/2016 Cbc With Differential Ord2 [place] ABS# 1.0 K/ul 08/26/2016 Cbc With Differential Ord2 Eos ABS# 0.1 K/ul 08/26/2016 Cbc With Differential Ord2 Baso ABS# 0.0 K/ul 08/26/2016 Magnesium Ord90 Mag 1.9 mg/dL 08/26/2016 Vitamin D 25 Oh Rwy9709 VITAMIN D, 25 HYDROXY 34.59 ng/mL Tibc Ord40 Iron 13 ug/dl 08/26/2016 Tibc Ord40 UIBC 283 ug/dL 08/26/2016 Tibc Ord40 TIBC 296 ug/dL 08/26/2016 Tibc Ord40 Fe-%Sat 4.4 % 08/26/2016 Ferritin Ord22 FERRITIN 28.8 ng/mL 08/26/2016 Sed Rate Ord21 ESR 20 mm/hr 11/19/2015 Comp Metabolic Dgd352 NA 131 mEq/L 08/22/2015 Comp Metabolic Tdp582 K 4.2 mEq/L 08/22/2015 Comp Metabolic Tmf268 CL 98 mEq/L 08/22/2015 Comp Metabolic Uvk480 CO2 27.0 mEq/L 08/22/2015 Comp Metabolic Rzq270 ANION GAP 10 08/22/2015 Comp Metabolic Lcz584 GLUCOSE 80 mg/dL 08/22/2015 Comp Metabolic Hre213 Creat 0.5 mg/dL 08/22/2015 Comp Metabolic Qtt139 eGFR 120 ml/min/1.73m2 08/22/2015 Comp Metabolic Dkj539 BUN 13 mg/dL 08/22/2015 Comp Metabolic Jhr589 B/C Ratio 25.0 Ratio 08/22/2015 Comp Metabolic Ckn620 CALCIUM 8.2 mg/dL 08/22/2015 Comp Metabolic Vhz474 ALK PHOS 49 U/L 08/22/2015 Comp Metabolic Cws710 AST(SGOT) 18 U/L 08/22/2015 Comp Metabolic Dkd052 ALT(SGPT) 11 U/L 08/22/2015 Comp Metabolic Aay145 BILI T 0.5 mg/dL 08/22/2015 Comp Metabolic Ich561 ALBUMIN 3.5 g/dL 08/22/2015 Comp Metabolic Tdk085 TPRO 6.2 g/dL 08/22/2015 Comp Metabolic Xye962 GLOB 2.7 g/dL 08/22/2015 Comp Metabolic Dar383 A/G Ratio 1.3 Ratio 08/22/2015 Comp Metabolic Nvx675 Osmo 262 mOsmo 08/22/2015 Cbc With Differential [...] 32.4 pg 08/22/2015 Cbc With Differential Ord2 [place]% 10.3 % 08/22/2015 Cbc With Differential Ord2 Eos% 1.1 % 08/22/2015 Cbc With Differential Ord2 MCHC 33.2 pg 08/22/2015 Cbc With Differential Ord2 Baso% 0.5 % 08/22/2015 Cbc With Differential Ord2 PLT 255 K/ul 08/22/2015 Cbc With Differential Ord2 RDW 13.6 % 08/22/2015 Cbc With Differential Ord2 Neut ABS# 4.34 K/ul 08/22/2015 Cbc With Differential Ord2 Lymph ABS# 1.39 K/ul 08/22/2015 Cbc With Differential Ord2 [place] ABS# 0.7 K/ul 08/22/2015 Cbc With Differential Ord2 Eos ABS# 0.1 K/ul 08/22/2015 Cbc With Differential Ord2 Baso ABS# 0.0 K/ul 08/22/2015 Tsh Ord6 hTSH II 2.19 uIU/mL 08/22/2015 Vitamin D 25 Oh Fvf3525 VITAMIN D, 25 HYDROXY 55.10 ng/mL Lipid [...] 1.5 Ratio 03/16/2015 Vitamin D 25 Oh Ojh7489 VITAMIN D, 25 HYDROXY 28.94 ng/mL Cbc [...] 28.1 pg 03/16/2015 Cbc With Differential Ord2 [place]% 11.2 % 03/16/2015 Cbc With Differential Ord2 [...] 2.37 K/ul 03/16/2015 Cbc With Differential Ord2 [place] ABS# 0.8 K/ul 03/16/2015 Cbc With Differential Ord2 Eos ABS# 0.1 K/ul 03/16/2015 Cbc With Differential Ord2 Baso ABS# 0.0 K/ul 03/16/2015 Cbc With Differential Ord2 New Analyzer Notice Please note new ref ranges starting 03-14-2015 due to implemntation of new five part differential hematolgy analyzer. 03/16/2015 Comp Metabolic Hwm201 NA 131 mEq/L 03/16/2015 Comp Metabolic Wrb973 K 4.1 mEq/L 03/16/2015 Comp Metabolic Agb867 CL 94 mEq/L 03/16/2015 Comp Metabolic Sgr663 CO2 28.0 mEq/L 03/16/2015 Comp Metabolic Rez575 ANION GAP 13 03/16/2015 Comp Metabolic Gwp659 GLUCOSE 96 mg/dL 03/16/2015 Comp Metabolic Bnv002 Creat 0.7 mg/dL 03/16/2015 Comp Metabolic Hah462 eGFR 80 ml/min/1.73m2 03/16/2015 Comp Metabolic Hqx935 BUN 16 mg/dL 03/16/2015 Comp Metabolic Sqr994 B/C Ratio 21.6 Ratio 03/16/2015 Comp Metabolic Ztq692 CALCIUM 8.9 mg/dL 03/16/2015 Comp Metabolic Usx896 ALK PHOS 44 U/L 03/16/2015 Comp Metabolic Don708 AST(SGOT) 22 U/L 03/16/2015 Comp Metabolic Yon224 ALT(SGPT) 14 U/L 03/16/2015 Comp Metabolic Fiy637 BILI T 0.5 mg/dL 03/16/2015 Comp Metabolic Cyy979 ALBUMIN 3.4 g/dL 03/16/2015 Comp Metabolic Gvt193 TPRO 6.0 g/dL 03/16/2015 Comp Metabolic Mrr376 GLOB 2.6 g/dL 03/16/2015 Comp Metabolic Ojo678 A/G Ratio 1.3 Ratio 03/16/2015 Comp Metabolic Mba410 Osmo 264 mOsmo 03/16/2015 Comp Metabolic Xlj267 NA 129 mEq/L 11/09/2014 Comp Metabolic Vpc499 K 4.2 mEq/L 11/09/2014 Comp Metabolic Zfi618 CL 96 mEq/L 11/09/2014 Comp Metabolic Uka323 CO2 27.0 mEq/L 11/09/2014 Comp Metabolic Ssj378 ANION GAP 10 11/09/2014 Comp Metabolic Afh717 GLUCOSE 144 mg/dL 11/09/2014 Comp Metabolic Iys322 Creat 0.8 mg/dL 11/09/2014 Comp Metabolic Awt152 eGFR 73 ml/min/1.73m2 11/09/2014 Comp Metabolic Ysv413 BUN 22 mg/dL 11/09/2014 Comp Metabolic Uts911 B/C Ratio 27.5 Ratio 11/09/2014 Comp Metabolic Nmk486 CALCIUM 8.6 mg/dL 11/09/2014 Comp Metabolic Pzs833 ALK PHOS 55 U/L 11/09/2014 Comp Metabolic Nwn933 AST(SGOT) 27 U/L 11/09/2014 Comp Metabolic Dea714 ALT(SGPT) 18 U/L 11/09/2014 Comp Metabolic Sxi143 BILI T 0.5 mg/dL 11/09/2014 Comp Metabolic Yzw227 ALBUMIN 3.0 g/dL 11/09/2014 Comp Metabolic One875 TPRO 5.4 g/dL 11/09/2014 Comp Metabolic Rzg004 GLOB 2.4 g/dL 11/09/2014 Comp Metabolic Hpi545 A/G Ratio 1.3 Ratio 11/09/2014 Comp Metabolic Zhi773 Osmo 265 mOsmo 11/09/2014 Magnesium Ord90 Mag 1.8 mg/dL 11/09/2014 Review of Systems System Result Effective Dates Constitutional recent illness 03/03/2018 Constitutional No chills [...] impaction 03/18/2016 None Full Exam - General 1995 Ears/Nose/Throat lips/teeth/gingiva Overall: benign lips 03/18/2016 None [...] Procedures Procedure Codes Date DRAIN/INJECT JOINT/BURSA CPT-4: 14545 08/21/2017 DRAIN/INJECT JOINT/BURSA CPT-4: 33959 08/12/2017 TRIAMCINOLONE ACET INJ NOS CPT-4: J3301 08/12/2017 DRAIN/INJECT JOINT/BURSA CPT-4: 29854 08/05/2017 TRIAMCINOLONE ACET INJ NOS CPT-4: J3301 08/05/2017 DRAIN/INJECT JOINT/BURSA CPT-4: 86645 07/23/2017 DRAIN/INJECT JOINT/BURSA CPT-4: 76917 07/09/2017 TRIAMCINOLONE ACET INJ NOS CPT-4: J3301 07/09/2017 PRESCRIP TRANSMIT VIA ERX SY CPT-4: G8553 07/09/2017 DRAIN/INJECT JOINT/BURSA CPT-4: 28314 07/01/2017 TRIAMCINOLONE ACET INJ NOS CPT-4: J3301 07/01/2017 PRESCRIP TRANSMIT VIA ERX SY CPT-4: G8553 07/01/2017 DRAIN/INJECT JOINT/BURSA CPT-4: 03877 06/17/2017 DRAIN/INJECT JOINT/BURSA CPT-4: 67352 04/02/2017 TRIAMCINOLONE ACET INJ NOS CPT-4: J3301 04/02/2017 DRAIN/INJECT JOINT/BURSA CPT-4: 84493 02/06/2017 ADMIN INFLUENZA VIRUS VAC CPT-4: G0008 12/08/2016 FLU VACC PRSV FREE INC ANTIG CPT-4: 40049 12/08/2016 PRESCRIP TRANSMIT VIA ERX SY CPT-4: G8553 12/08/2016 PRESCRIP TRANSMIT VIA ERX SY CPT-4: G8553 11/17/2016 TRIAMCINOLONE ACET INJ NOS CPT-4: J3301 10/02/2016 TRIAMCINOLONE ACET INJ NOS CPT-4: J3301 09/12/2016 DRAIN/INJECT JOINT/BURSA CPT-4: 19697 09/08/2016 TRIAMCINOLONE ACET INJ NOS CPT-4: J3301 09/08/2016 PRESCRIP TRANSMIT VIA ERX SY CPT-4: G8553 08/26/2016 PRESCRIP TRANSMIT VIA ERX SY CPT-4: G8553 08/18/2016 ADMIN INFLUENZA VIRUS VAC CPT-4: G0008 11/19/2015 FLU VACC PRSV FREE INC ANTIG Formatting Model/CDA Sections, Assigned to/Luanne Elaine CPT-4: 50683Lgssuef 11/19/2015 PRESCRIP TRANSMIT VIA ERX SY CPT-4: G8553 09/04/2015 PRESCRIP TRANSMIT VIA ERX SY CPT-4: G8553 2015 PRESCRIP TRANSMIT VIA ERX SY CPT-4: G8553 07/18/2015 PRESCRIP TRANSMIT VIA ERX SY CPT-4: G8553 07/02/2015 REMOVE IMPACTED EAR WAX UNI CPT-4: 68986 04/09/2015 PRESCRIP TRANSMIT VIA ERX SY CPT-4: G8553 02/08/2015 ADMIN INFLUENZA VIRUS VAC CPT-4: G0008 01/10/2015 FLU VACC PRSV FREE INC ANTIG Formatting Model/CDA Sections, Assigned to/Luanne Elaine CPT-4: 43797Eetiuom 01/10/2015 ADMIN PNEUMOCOCCAL VACCINE Formatting Model/CDA Sections, Assigned to SNOMED CT: 23200571 CPT-4: N5794Obyrpma 12/11/2014 PNEUMOCOCCAL VACC [address]: 27577772 CPT-4: 79304 12/11/2014 Vital Signs Date Vital 03/03/2018 Blood Pressure 1: 114/64 Code : [...] Code : 8480-6 BMI: 23.5 Code : 51729-1 Heart Rate 1 : 58 bpm Height: 5'8" SpO2: 96% Weight: 152 lbs 11/30/2017 Blood Pressure 1: 122/70 Code : 8480-6 Heart Rate 1: 105 bpm Height: 5'8" SpO2: 98% Weight: 11/27/2017 Blood Pressure 1: 148/76 Code : 8480-6 Heart Rate 1: 72 bpm Height: 5'8" SpO2: 99% Weight: 11/10/2017 Blood Pressure 1: 130/76 Code : 8480-6 BMI: 27.3 Code : 58242-9 Heart Rate 1 : 98 bpm Height: [...] Code : 8480-6 BMI: 24.7 Code : 12200-9 Heart Rate 1 : 100 bpm Height: 5'8" SpO2: 95% Weight: 160 lbs 08/31/2017 Blood Pressure 1: 128/78 Code : 8480-6 BMI: 23.6 Code : 87997-1 Heart Rate 1 : 102 bpm Height: 5'8" SpO2: 96% Weight: 153 lbs 08/21/2017 Blood Pressure 1: 138/78 Code : 8480-6 Heart Rate 1: 97 bpm SpO2: 95% Weight: 156 lbs 2 oz 08/12/2017 Blood Pressure 1: 138/74 Code : 8480-6 BMI: 25.0 Code : 82686-0 Heart Rate 1 : 94 bpm Height: 5'8" SpO2: 98% Weight: 162 lbs 08/05/2017 Blood Pressure 1: 126/78 Code : 8480-6 BMI: 25.8 Code : 81130-6 Heart Rate 1 : 74 bpm Height: 5'8" SpO2: 96% Weight: 167 lbs 07/23/2017 Blood Pressure 1: 106/64 Code : 8480-6 BMI: 25.3 Code : 49225-9 Heart Rate 1 : 81 bpm Height: 5'8" SpO2: 99% Weight: 163 lbs 14 oz 07/09/2017 Blood Pressure 1: 130/68 Code : 8480-6 Heart Rate 1: 82 bpm Height: 5'8" SpO2: 98% Weight: 07/01/2017 Blood Pressure 1: 124/76 Code : 8480-6 BMI: 26.5 Code : 46299-5 Heart Rate 1 : 99 bpm Height: 5'8" SpO2: 98% Weight: 172 lbs 06/24/2017 Blood Pressure 1: 118/70 Code : 8480-6 Heart Rate 1: 103 bpm Height: 5'8" SpO2: 98% Weight: 06/17/2017 Blood Pressure 1: 110/64 Code : 8480-6 BMI: 25.0 Code : 13800-3 Heart Rate 1 : 73 bpm Height: 5'8" Weight: 162 lbs 06/01/2017 Blood Pressure 1: 158/84 Code : 8480-6 BMI: 24.4 Code : 39179-1 Heart Rate 1 : 94 bpm Height: 5'8" SpO2: 95% Weight: 158 lbs 04/02/2017 Blood Pressure 1: 164/80 Code : 8480-6 BMI: 23.1 Code : 41417-4 Heart Rate 1 : 76 bpm Height: 5'8" SpO2: 94% Weight: 150 lbs 03/12/2017 Blood Pressure 1: 130/74 Code : 8480-6 BMI: 23.0 Code : 97177-6 Heart Rate 1 : 92 bpm Height: 5'8" SpO2: 94% Weight: 149 lbs 02/06/2017 Height: Weight: 01/08/2017 Blood Pressure 1: 136/76 Code : 8480-6 BMI: 21.4 Code : 89838-8 Heart Rate 1 : 85 bpm Height: 5'8" SpO2: 98% Weight: 138 lbs 8 oz 12/08/2016 Blood Pressure 1: 132/66 Code : 8480-6 BMI: 22.2 Code : 64764-3 Heart Rate 1 : 106 bpm Height: 5'8" SpO2: 97% Weight: 144 lbs 11/17/2016 Blood Pressure 1: 146/80 Code : 8480-6 BMI: 22.4 Code : 84953-2 Heart Rate 1 : 100 bpm Height: 5'8" SpO2: 98% Weight: 145 lbs 11/10/2016 Blood Pressure 1: 122/62 Code : 8480-6 BMI: 22.2 Code : 84508-2 Height: 5'8" Weight: 144 lbs 11/05/2016 Blood Pressure 1: 146/80 Code : 8480-6 BMI: 22.2 Code : 59278-7 Heart Rate 1 : 77 bpm Height: 5'8" SpO2: 99% Weight: 144 lbs 10/07/2016 Blood Pressure 1: 132/68 Code : 8480-6 BMI: 22.8 Code : 03695-7 Heart Rate 1 : 90 bpm Height: 5'8" SpO2: 97% Weight: 148 lbs 10/02/2016 Blood Pressure 1: 166/86 Code : 8480-6 BMI: 22.8 Code : 53791-1 Heart Rate 1 : 96 bpm Height: 5'8" SpO2: 96% Weight: 148 lbs 09/12/2016 Blood Pressure 1: 130/86 Code : 8480-6 Height: Weight: 09/08/2016 Blood Pressure 1: 132/74 Code : 8480-6 BMI: 22.4 Code : 24343-9 Heart Rate 1 : 93 bpm Height: 5'8" SpO2: 99% Weight: 145 lbs 08/26/2016 Blood Pressure 1: 132/78 Code : 8480-6 BMI: 23.9 Code : 35649-5 Heart Rate 1 : 80 bpm Height: 5'8" SpO2: 94% Weight: 155 lbs 08/18/2016 Blood Pressure 1: 130/70 Code : 8480-6 BMI: 23.6 Code : 87768-4 Heart Rate 1 : 100 bpm Height: 5'8" SpO2: 94% Weight: 153 lbs 07/30/2016 Blood Pressure 1: 144/84 Code : 8480-6 BMI: 22.4 Code : 04552-1 Heart Rate 1 : 86 bpm Height: 5'8" SpO2: 97% Weight: 145 lbs 07/14/2016 Blood Pressure 1: 122/74 Code : 8480-6 BMI: 22.5 Code : 02244-4 Heart Rate 1 : 87 bpm Height: 5'8" SpO2: 97% Weight: 146 lbs 07/04/2016 Blood Pressure 1: 128/78 Code : 8480-6 BMI: 22.5 Code : 89573-4 Heart Rate 1 : 98 bpm Height: 5'8" Weight: 146 lbs 06/26/2016 Blood Pressure 1: 122/68 Code : 8480-6 BMI: 22.5 Code : 60456-1 Heart Rate 1 : 102 bpm Height: 5'8" SpO2: 98% Weight: 146 lbs 05/28/2016 Blood Pressure 1: 122/68 Code : 8480-6 BMI: 22.4 Code : 58837-4 Heart Rate 1 : 89 bpm Height: 5'8" SpO2: 97% Weight: 145 lbs 03/18/2016 Blood Pressure 1: 132/66 Code : 8480-6 BMI: 22.8 Code : 50288-4 Heart Rate 1 : 96 bpm Height: 5'8" SpO2: 98% Weight: 148 lbs 01/29/2016 Blood Pressure 1: 122/66 Code : 8480-6 BMI: 22.2 Code : 29855-5 Heart Rate 1 : 90 bpm Height: 5'8" SpO2: 99% Weight: 144 lbs 01/01/2016 Blood Pressure 1: 148/82 Code : 8480-6 BMI: 22.5 Code : 87657-7 Heart Rate 1 : 82 bpm Height: 5'8" Weight: 146 lbs 11/19/2015 Blood Pressure 1: 140/74 Code : 8480-6 BMI: 23.7 Code : 03721-6 Heart Rate 1 : 79 bpm Height: 5'8" SpO2: 96% Weight: 153 lbs 8 oz 11/01/2015 Blood Pressure 1: 118/72 Code : 8480-6 Heart Rate 1: 90 bpm Height: 5'8" SpO2: 95% 09/04/2015 Blood Pressure 1: 136/72 Code : 8480-6 BMI: 23.1 Code : 00124-4 Heart Rate 1 : 97 bpm Height: 5'8" SpO2: 98% Weight: 149 lbs 8 oz 2015 Blood Pressure 1: 144/76 Code : 8480-6 BMI: 22.8 Code : 61650-9 Heart Rate 1 : 75 bpm Height: 5'8" SpO2: 97% Weight: 148 lbs 07/18/2015 Blood Pressure 1: 132/60 Code : 8480-6 BMI: 23.1 Code : 19941-9 Heart Rate 1 : 78 bpm Height: 5'8" Weight: 150 lbs 07/02/2015 Blood Pressure 1: 156/86 Code : 8480-6 BMI: 23.0 Code : 20522-2 Heart Rate 1 : 75 bpm Height: 5'8" SpO2: 99% Weight: 149 lbs 05/31/2015 Blood Pressure 1: 136/72 Code : 8480-6 BMI: 22.7 Code : 67429-7 Heart Rate 1 : 85 bpm Height: 5'8" SpO2: 97% Weight: 147 lbs 04/09/2015 Blood Pressure 1: 118/60 Code : 8480-6 BMI: 22.7 Code : 19874-1 Heart Rate 1 : 72 bpm Height: 5'8" SpO2: 95% Weight: 147 lbs 02/08/2015 Blood Pressure 1: 138/76 Code : 8480-6 BMI: 23.1 Code : 00882-0 Heart Rate 1 : 80 bpm Height: 5'8" SpO2: 98% Weight: 150 lbs 12/11/2014 Blood Pressure 1: 120/74 Code : 8480-6 BMI: 22.1 Code : 69792-9 Heart Rate 1 : 92 bpm Height: 5'8" SpO2: 96% Weight: 143 lbs 11/09/2014 Blood Pressure 1: 100/64 Code : 8480-6 BMI: 21.6 Code : 37188-8 Heart Rate 1 : 88 bpm Height: 5'8" Weight: 140 lbs 10/23/2014 Blood Pressure 1: 138/82 Code : 8480-6 BMI: 23.6 Code : 18956-9 Heart Rate 1 : 86 bpm Height: 5'8" Weight: 153 lbs 10/16/2014 Blood Pressure 1: 128/60 Code : 8480-6 BMI: 23.3 Code : 04719-9 Heart Rate 1 : 91 bpm Height: 5'8" SpO2: 99% Weight: 151 lbs 10/09/2014 Blood Pressure 1: 120/60 Code : 8480-6 BMI: 23.0 Code : 65772-0 Heart Rate 1 : 96 bpm Height: 5'8" SpO2: 97% Weight: 149 lbs 09/14/2014 Blood Pressure 1: 132/72 Code : 8480-6 BMI: 22.1 Code : 02514-7 Heart Rate 1 : 84 bpm Height: 5'8" SpO2: 97% Weight: 143 lbs 08/11/2014 Blood Pressure 1: 134/74 Code : 8480-6 BMI: 24.1 Code : 68779-3 Heart Rate 1 : 88 bpm Height: 5'8" Weight: 156 lbs 07/12/2014 Blood Pressure 1: 122/62 Code : 8480-6 BMI: 22.7 Code : 86190-6 Heart Rate 1 : 76 bpm Height: 5'8" Weight: 147 lbs Functional Status No Functional Status data History of Present Illness Symptom Name Status Result Effective Date Notes Quality constant 04/2018 None Quality painful 03/03 [...] rheumatoid arthritis Location on the left 06/24/2017 [facility] Follow Up _ cardiac disease 06/17/2017 [...] Dr. Blancas in [place] and Neurosurgeon in [place] in the past neck pain Significant Medical Conditions spinal stenosis 07/12/2014 has osteoarthritis Advance Directives No Advance Directive data Encounters Encounter Performer Location Codes Date ([id number]) [id number] EST. PATIENT, LEVEL IV Diagnosis: Essential (primary) hypertension[ICD10: I10] Diagnosis: Hypo-osmolality and hyponatremia[ICD10: E87.1] Diagnosis: Chronic pain syndrome[ICD10: G89.4] Araceli Silva MD, [facility] CPT-4: 78006 03/03/2018 ([id number]) 24866 EST. PATIENT, LEVEL III Diagnosis: Cough[ICD10: R05] Diagnosis: Acute bronchitis, unspecified[ICD10: J20.9] Diagnosis: Chronic obstructive pulmonary disease, unspecified[ICD10: J44.9] Ila Silva MD, [facility] CPT-4: 65759 02/12/2018 ([id number]) 26859 EST. PATIENT, LEVEL IV Diagnosis: Chronic pain syndrome[ICD10: G89.4] Diagnosis: Cough[ICD10: R05] Diagnosis: Diarrhea, unspecified[ICD10: R19.7] Diagnosis: Generalized edema[ICD10: R60.1] Ila Silva MD, [facility] CPT-4: 68697 02/09/2018 ([id number]) 04631 EST. PATIENT, LEVEL III Diagnosis: Generalized edema[ICD10: R60.1] Diagnosis: Lymphedema, not elsewhere classified[ICD10: I89.0] Araceli Silva MD, [facility] CPT-4: 03431 01/14/2018 ([id number]) 01193 EST. PATIENT, LEVEL IV Diagnosis: Essential (primary) hypertension[ICD10: I10] Diagnosis: Generalized edema[ICD10: R60.1] Diagnosis: Chronic pain syndrome[ICD10: G89.4] Araceli Silva MD, [facility] CPT-4: 66880 12/24/2017 ([id number]) 08572 EST. PATIENT, LEVEL III Diagnosis: Lymphedema, not elsewhere classified[ICD10: I89.0] Araceli Silva MD [facility] CPT-4: 04109 11/30/2017 ([id number]) 39431 EST. PATIENT, LEVEL III Diagnosis: Generalized edema[ICD10: R60.1] Ila Silva MD, [facility] CPT-4: 90228 11/27/2017 ([id number]) 81768 EST. PATIENT, LEVEL IV Diagnosis: Localized edema[ICD10: [...] in left shoulder[ICD10: M25.512] Araceli Silva MD, [facility] CPT-4: 96008 11/10/2017 ([id number]) 84455 EST. PATIENT, LEVEL IV Diagnosis: Localized edema[ICD10: [...] in left shoulder[ICD10: M25.512] Araceli Silva MD, [facility] CPT-4: 08386 10/29/2017 ([id number]) 97956 EST. PATIENT, LEVEL IV Diagnosis: Essential (primary) [...] Diagnosis: Localized edema[ICD10: R60.0] Araceli Silva MD, [facility] CPT- 4: 79403 10/20/2017 ([id number]) 19112 EST. PATIENT, LEVEL IV Diagnosis: Essential (primary) hypertension[ICD10: I10] Diagnosis: Lymphedema, not elsewhere classified[ICD10: I89.0] Diagnosis: Rheumatoid arthritis without rheumatoid factor, right shoulder[ICD10 : M06.011] Diagnosis: Rheumatoid arthritis without rheumatoid factor, left shoulder[ICD10: M06.012] Diagnosis: Primary osteoarthritis, right shoulder[ICD10: M19.011] Diagnosis: Primary osteoarthritis, left shoulder[ICD10: M19.012] Diagnosis: Pain in right shoulder[ICD10: M25.511] Diagnosis: Pain in left shoulder[ICD10: M25.512] Araceli Silva MD, [facility] CPT-4: 09640 09/29/2017 ([id number]) 26610 EST. PATIENT, LEVEL IV Diagnosis: Primary osteoarthritis, left shoulder[ICD10: M19.012] Diagnosis: Pain in left shoulder[ICD10: M25.512] Diagnosis: Lymphedema, not elsewhere classified[ICD10: I89.0] Diagnosis: Localized edema[ICD10: R60.0] Diagnosis: Chronic atrial fibrillation[ICD10: I48.2] Araceli Silva MD, [facility] CPT-4: 32323 09/15/2017 ([id number]) 79457 EST. PATIENT, LEVEL III Diagnosis: Primary osteoarthritis, left shoulder[ICD10: M19.012] Diagnosis: Pain in left shoulder[ICD10: M25.512] Diagnosis: Hemarthrosis, left shoulder[ICD10: M25.012] Araceli Silva MD, [facility] CPT-4: 62981 08/31/2017 ([id number]) 63693 EST. 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 PATIENT, LEVEL III Diagnosis: Localized edema[ICD10: R60.0] Araceli Silva MD [facility] CPT- 4: 75938 07/23/2017 ([id number]) 15901 EST. PATIENT, LEVEL III Diagnosis: Rheumatoid arthritis without rheumatoid factor, left shoulder[ICD10: M06.012] Diagnosis: Hemarthrosis, left shoulder[ICD10: M25.012] Araceli Silva MD [facility] CPT-4: 84100 07/09/2017 ([id number]) 68844 EST. PATIENT, LEVEL III Diagnosis: Chronic pain syndrome[ICD10: G89.4] Diagnosis: Rheumatoid arthritis without rheumatoid factor, left shoulder[ICD10: M06.012] Diagnosis: Hemarthrosis, left shoulder[ICD10: M25.012] Diagnosis: Lymphedema, not elsewhere classified[ICD10: I89.0] Araceli Silva MD, [facility] CPT-4: 59838 07/01/2017 ([id number]) 22931 EST. PATIENT, LEVEL III Diagnosis: Chronic pain syndrome[ICD10: G89.4] Araceli Silva MD [facility] CPT-4: 56743 06/24/2017 ([id number]) 37922 EST. PATIENT, LEVEL IV Diagnosis: Rheumatoid arthritis without rheumatoid factor, right shoulder[ICD10 : M06.011] Diagnosis: Rheumatoid arthritis without rheumatoid factor, left shoulder[ICD10: M06.012] Diagnosis: Pain in right shoulder[ICD10: M25.511] Diagnosis: Pain in left shoulder[ICD10: M25.512] Diagnosis: Chronic atrial fibrillation[ICD10: I48.2] Araceli Silva MD, [facility] CPT-4: 88863 06/17/2017 07268 EST. PATIENT, LEVEL III Diagnosis: Pain in left shoulder[ICD10: M25.512] Diagnosis: Hemarthrosis, right shoulder[ICD10: M25.011] Diagnosis: Hemarthrosis, left shoulder[ICD10: M25.012] Maricel Silva MD, [facility] CPT-4: 04022 06/01/2017 ([id number]) 45212 EST. PATIENT, LEVEL II Diagnosis: Pain in right shoulder[ICD10: M25.511] Diagnosis: Hemarthrosis, right shoulder[ICD10: M25.011] Araceli Silva MD, [facility] CPT-4: 11834 04/02/2017 ([id number]) 43374 EST. PATIENT, LEVEL IV Diagnosis: Chronic pain syndrome[ICD10: G89.4] Diagnosis: Rheumatoid arthritis without rheumatoid factor, right shoulder[ICD10 : M06.011] Diagnosis: Rheumatoid arthritis without rheumatoid factor, left shoulder[ICD10: M06.012] Araceli Silva MD, [facility] CPT-4: 90010 2017 ([id number]) 15156 EST. 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 PATIENT, LEVEL IV Diagnosis: Encounter for immunization[ICD10: Z23] Diagnosis: Chronic pain syndrome[ICD10: G89.4] Diagnosis: Essential (primary) hypertension[ICD10: I10] Araceli Silva MD, [facility] CPT-4: 43520 12/08/2016 ([id number]) 71539 EST. PATIENT, LEVEL III Diagnosis: Urge incontinence[ICD10: N39.41] Diagnosis: Chronic pain syndrome[ICD10: G89.4] Diagnosis: Lymphedema, not elsewhere classified[ICD10: I89.0] Araceli Silva MD, [facility] CPT-4: 41373 11/17/2016 05150 EST. 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 PATIENT, LEVEL IV Diagnosis: Essential (primary) hypertension[ICD10: I10] Diagnosis: Other chronic pain[ICD10: G89.29] Diagnosis: Localized edema[ICD10: R60.0] Diagnosis: Urge incontinence[ICD10: N39.41] Araceli Silva MD, [facility] CPT-4: 83902 11/05/2016 ([id number]) 52121 EST. 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 PATIENT, LEVEL III Diagnosis: Hemarthrosis, right shoulder[ICD10: M25.011] Diagnosis: Pain in right shoulder[ICD10: M25.511] Ila Silva MD, [facility] CPT-4: 04004 10/02/2016 28120 EST. PATIENT, LEVEL II Diagnosis: Low back pain[ICD10: M54.5] Diagnosis: Sacroiliitis, not elsewhere classified[ICD10: M46.1] Ila Silva MD, [facility] CPT-4: 46778 09/12/2016 ([id number]) 57474 EST. PATIENT, LEVEL III Diagnosis: Hemarthrosis, right shoulder[ICD10: M25.011] Diagnosis: Other chronic pain[ICD10: G89.29] Araceli Silva MD, [facility] CPT-4: 78267 09/08/2016 ([id number]) 35274 EST. PATIENT, LEVEL IV Diagnosis: Other iron deficiency anemias[ICD10: D50.8] Diagnosis: Vitamin D deficiency, unspecified[ICD10: E55.9] Diagnosis: Hypomagnesemia[ICD10: E83.42] Araceli Silva MD [facility] CPT- 4: 96435 08/26/2016 ([id number]) 10875 EST. PATIENT, LEVEL III Diagnosis: Localized edema[ICD10: R60.0] Araceli Silva MD, [facility] CPT- 4: 38560 08/18/2016 ([id number]) 21956 EST. 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 PATIENT, LEVEL IV Diagnosis: Pain in left shoulder[ICD10: M25.512] Diagnosis: Nocturia[ICD10: R35.1] Maricel Silva MD, [facility] CPT-4: 96523 07/14/2016 22144 EST. PATIENT, LEVEL III Diagnosis: Pain in left shoulder[ICD10: M25.512] Maricel Silva MD [facility] CPT-4: 41385 07/04/2016 ([id number]) 37682 EST. 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 PATIENT, LEVEL II Diagnosis: Insect bite (nonvenomous) of right upper arm, initial encounter[ICD10 : S40.861A] Ila Silva MD [facility] CPT-4: 25906 11/01/2015 ([id number]) 84428 EST. 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 PATIENT, LEVEL III Diagnosis: Contusion of left upper arm, subsequent encounter[ICD10: S40.022D] Araceli Silva MD, [facility] CPT-4: 20607 2015 20877 EST. PATIENT, LEVEL III Diagnosis: Cellulitis of left upper limb[ICD10: L03.114] Maricel Silva MD, [facility] CPT-4: 96449 07/18/2015 ([id number]) 68046 EST. 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 PATIENT, LEVEL IV Diagnosis: Essential (primary) hypertension[ICD10: I10] Diagnosis: Vitamin D deficiency, unspecified[ICD10: E55.9] Diagnosis: Mixed hyperlipidemia[ICD10: E78.2] Diagnosis: Age-related osteoporosis with current pathological fracture, unspecified site, sequela[ICD10: M80.00XS] Araceli Silva MD [facility] CPT- 4: 56018 02/08/2015 ([id number]) 42841 EST. PATIENT, LEVEL IV Diagnosis: Essential (primary) hypertension[ICD10: I10] Diagnosis: Localized edema[ICD10: R60.0] Diagnosis: Primary osteoarthritis, unspecified site[ICD10: M19.91] Araceli Silva MD [facility] CPT-4: 64966 12/11/2014 ([id number]) 57938 EST. PATIENT, LEVEL III Diagnosis: EDEMA[ICD9: 782.3] Diagnosis: ESSENTIAL HYPERTENSION[ICD9: 401.9] Araceli Silva MD [facility] CPT-4: 29337 11/09/2014 ([id number]) 87696 EST. PATIENT, LEVEL III Diagnosis: Leg pain[ICD9: 729.5] Diagnosis: Ulcer of toe[ICD9: 707.15] Araceli Silva MD [facility] CPT- 4: 96227 10/23/2014 ([id number]) 48143 EST. PATIENT, LEVEL III Diagnosis: Ulcer of toe[ICD9: 707.15] Araceli Silva MD [facility] CPT- 4: 68760 10/16/2014 00826 EST. PATIENT, LEVEL II Diagnosis: Ulcer of toe[ICD9: 707.15] Ila Silva MD [facility] CPT-4: 58736 10/09/2014 ([id number]) 62315 EST. PATIENT, LEVEL III Diagnosis: EDEMA[ICD9: 782.3] Araceli Silva MD [facility] CPT-4: 41332 09/14/2014 ([id number]) 00809 EST. PATIENT, LEVEL IV Diagnosis: EDEMA[ICD9: 782.3] Diagnosis: ESSENTIAL HYPERTENSION[ICD9: 401.9] Araceli Silva MD [facility] CPT-4: 52906 08/11/2014 ([id number]) OFFICE VISIT, NEW - LEVEL 4 Diagnosis: HYPERLIPIDEMIA[ICD9: 272.4] Diagnosis: VITAMIN D DEFICIENCY[ICD9: 268.9] Diagnosis: Osteoporosis[ICD9: 733.00] Diagnosis: Esophageal reflux[ICD9: 530.81] Diagnosis: Chronic pain[ICD9: 338.29] Araceli Silva MD, [facility] CPT- 4: 77395 07/12/2014 Plan of Care Planned Activity Notes [...] fentanyl 03/03/2018 App[facility]ment[phone] [facility] (15 min) Moderate 03/03/2018 Patient Education: Patient [...] breath - will send rx [facility] 02/12/2018 [phone] (30 min) Complex 02/12/2018 Patient Education: Patient Medication Summary Completed 02/12/2018 Visit Plan: Chronic Pain Syndrome - pt has chronic pain - has been maintained on current medications, has not sought out other medications , only uses PRN pain medications as directed, and understands the consequences of over-medication. Rnocd-edxubfugec-gcgcesny with lasix/metolazone -if swelling /weight increase, okay to increase metolazone to daily as directed Cough- okay for robitussin dm Diarrhea- rx for lomotil written and instructed on use-follow up in 3 weeks, sooner if needed. Call with any concerns. 02/09/2018 Appointment: Ila Kennedy WPtel: [phone] [place] (30 min) Complex 02/09/2018 Patient Education: Patient Medication Summary Completed 02/09/2018 Appointment: Araceli Silva WPtel: [facility]3 [facility] (15 min) Moderate 02/04/2018 Visit Plan: Edema/Lymphedema [...] of over-medication. 01/14/2018 Appointment: Araceli Silva WPtel: [facility] (15 min) Moderate 01/14/2018 Patient Education: Patient [...] scheduled. 12/24/2017 Appointment: Araceli Silva WPtel: [phone] [facility] [place] (30 min) Complex 12/24/2017 Patient Education: [...] and output. 11/30/2017 App[facility]ment: [phone] [facility] (15 min) Moderate 11/30/2017 Patient Education: Patient [...] of over-medication. 11/10/2017 Appointment: [phone] [facility] [place] (15 min) Moderate 11/10/2017 Patient Education: [...] severe RA of hands/fingers. We will contact [employer] in [place] for paperwork regarding the scooter. 10/29/2017 Appointment: Araceli Silva WPtel: [facility] [place] (15 min) Moderate 10/29/2017 Patient Education: [...] time. 10/20/2017 Appointment: [facility] [phone] [facility] (30 min) Complex 10/20/2017 Patient Education: Patient [...] today. 09/29/2017 Appointment: [facility] [phone] [facility] (15 min) Moderate 09/29/2017 Patient Education: Patient [...] Completed 08/21/2017 Appointment: [phone] [facility] (15 min) Moderate 08/20/2017 Visit Plan: Hemarthrosis shoulders - 250mL from left shoulder and 100mL from right shoulder with 1ml kenalog injected into right and left shoulders - Left and right shoulder pain and swelling, swelling into arms and left breast -pt to continue with use of compression sleeves. [id number] sep 2018 bristol 2ml kenalog 08/12/2017 Appointment: [phone] [facility] (15 min) Moderate 08/12/2017 Patient Education: Patient [...] edema. 08/05/2017 Appointment: Araceli Silva WPtel: [phone] [facility] (15 min) Moderate 08/05/2017 Patient Education: Patient [...] peripheral edema. 07/23/2017 Appointment: Araceli Silva WPtel: [facility] (15 min) Moderate 07/23/2017 Patient Education: Patient [...] symptoms. 07/09/2017 Appointment: Araceli Silva WPtel: [facility]5 [facility] (15 min) Moderate 07/09/2017 Patient Education: Patient Medication Summary Completed 07/09/2017 Referral: [facility] WPtel: Referral Initiated 07/08/2017 [...] symptoms. 07/01/2017 Appointment: Araceli Silva WPtel: [facility] (15 min) Moderate 07/01/2017 Patient Education: Patient Medication Summary Completed 07/01/2017 Visit Plan: Chronic Pain Syndrome - pt has chronic pain - has been maintained on current medications, has not sought out other medications , only uses PRN pain medications as directed, and understands the consequences of over-medication. 06/24/2017 Appointment: Araceli Silva WPtel: [facility] (15 min) Moderate 06/24/2017 Patient Education: Patient [...] peripheral edema. 06/17/2017 Appointment: Araceli Silva WPtel: [facility] [place] (30 min) Complex 06/17/2017 Patient Education: Patient Medication Summary Completed 06/17/2017 Appointment: Araceli Silva WPtel: [facility] [place] (15 min) Moderate 06/08/2017 Care Plan: Referral Order SNOMED-CT : 453022095 Pending 06/02/2017 Visit Plan: Left and right [...] edema. 06/01/2017 Appointment: Maricel Gee WPtel: [phone] [facility] [place] (30 min) Complex 06/01/2017 Patient [...] shoulder 04/02/2017 Appointment: Araceli Silva WPtel: [phone] [facility] [place] (15 min) Moderate 04/02/2017 Patient Education: [...] upset. 03/12/2017 Appointment: [facility] [phone] [facility] [place] (15 min) Moderate 03/12/2017 Patient Education: [...] check ROMIE. 01/08/2017 Appointment: Araceli Silva WPtel: [facility]8 [facility] (15 min) Moderate 01/08/2017 Patient Education: Patient [...] with Remicaide. 12/08/2016 Appointment: Araceli Silva WPtel: [facility] (15 min) Moderate 12/08/2016 Patient Education: Patient [...] Silva WPtel: [phone] [facility] (15 min) Moderate 11/17/2016 Patient Education: Patient [...] over-medication. 11/10/2016 Appointment: Maricel Gee WPtel: [phone] [facility] (30 min) Complex 11/10/2016 Patient Education: [...] steroids, immunosuppression. 11/05/2016 Appointment: Araceli Silva WPtel: [facility]5 [facility] (15 min) Moderate 11/05/2016 Patient Education: Patient [...] today. 10/07/2016 Appointment: Araceli Silva WPtel: [facility] (15 min) Moderate 10/07/2016 Patient Education: Patient Medication Summary Completed 10/07/2016 Care Plan: Referral Order SNOMED-CT : [id number] Pending 10/07/2016 Care Plan: Referral Order SNOMED-CT : [id number] Pending 10/07/2016 Visit Plan: Hemarthrosis -right shoulder-only able to drain 5ml of bloody drainage-unable to give oral steroids due to recent GI bleed -will give kenalog injection today in the office-discussed getting OSMO patch 10/02/2016 Appointment: Ila Kennedy WPtel: [phone] [place] (30 min) Complex 10/02/2016 Patient Education: Patient Medication Summary Completed 10/02/2016 Appointment: Araceli Silva WPtel: [facility]5 [facility] [place] (15 min) Moderate 09/23/2016 Appointment: Araceli Silva WPtel: [facility] [place] (15 min) Moderate 09/17/2016 Visit Plan: Sacroiliitis - back exercises discussed with the patient, pt to continue with anti-inflammatories. Pt is to call if the symptoms do not improve or if they worsen. Kenalog injection today in the office. 09/12/2016 Appointment: Ila Kennedy WPtel: [facility]5 [phone] [place] (15 min) Moderate 09/12/2016 Patient Education: Patient Medication Summary Completed 09/12/2016 Visit Plan: Hemarthrosis - drain right shoulder. Injection of kenalog 1mL - 40mg - [employer] - lot #[id number] , expires oct 2017 Chronic Pain Syndrome [...] of over-medication. 09/08/2016 Appointment: Araceli Silva WPtel: [phone] [facility] (15 min) Moderate 09/08/2016 Patient Education: Patient [...] level 08/26/2016 Appointment: Araceli Silva WPtel: [facility] (15 min) Moderate 08/26/2016 Patient Education: Patient [...] Summary Completed 08/18/2016 Appointment: Araceli Silva WPtel: [facility]7 [facility] [place] (15 min) Moderate 08/13/2016 Appointment: Araceli Silva WPtel: [facility] [place] (15 min) Moderate 08/06/2016 Visit Plan: [...] the daytime. 07/30/2016 Appointment: [phone] [facility] (15 min) Moderate 07/30/2016 Patient Education: Patient Medication Summary Completed 07/30/2016 Visit Plan: Left shoulder pain - improving - pt is to notify clinic if symptoms do not improve, if they worsen, or with any questions or concerns. Nocturia - will give samples, pt is to notify clinic if symptoms do not improve. 07/14/2016 Appointment: Maricel Gee WPtel: [facility]4 [facility] (30 min) Complex 07/14/2016 Patient Education: [...] any dyspnea. 07/04/2016 Appointment: Maricel Gee WPtel[facility] ([facility] Complex 07/04/2016 Patient Education: [...] medication. 06/26/2016 Appointment: [facility] [phone] [facility] (15 min) Moderate 06/26/2016 Patient Education: Patient [...] over-medication. 05/28/2016 Appointment: Araceli Silva WPtel: [phone] [facility] [place] (15 min) Moderate 05/28/2016 Patient Education: Patient Medication Summary Completed 05/28/2016 Patient Education: Hypertension Completed 05/28/2016 Appointment: [facility] [phone] [facility] [place] (15 min) Moderate 05/12/2016 Appointment: [facility] [phone] [facility] [place] (15 min) Moderate 04/15/2016 Appointment: [facility] [phone] [facility] [place] (30 min) Complex 03/25/2016 Visit Plan: [...] premarin. 03/18/2016 Appointment: Araceli Silva WPtel: [phone] [facility] [place] (30 min) Complex 03/18/2016 Patient Education: Patient Medication Summary Completed 03/18/2016 Appointment: Araceli Silva WPtel: [facility]3 [facility] (15 min) Moderate 02/19/2016 Visit Plan: Hypertension [...] over-medication. 01/29/2016 Appointment: Araceli Silva WPtel: [facility] (15 min) Moderate 01/29/2016 Patient Education: Patient Medication Summary Completed 01/29/2016 Visit Plan: Discussed MRI of the neck - pt is interested in doing this - however, not prior to changing her medication first to see if this helps her pain 01/01/2016 Appointment: Araceli Silva WPtel: [phone] [facility] (15 min) Moderate 01/01/2016 Patient Education: Patient Medication Summary Completed 01/01/2016 Patient Education: Hypertension Completed 01/01/2016 Appointment: Araceli Silva WPtel: [facility]8 [facility] (15 min) Moderate 12/03/2015 Visit Plan: Chronic [...] nonhealing. 11/01/2015 Appointment: Ila Kennedy WPtel: [facility]9 [phone] (15 min) Moderate 11/01/2015 Patient Education: Patient Medication Summary Completed 11/01/2015 Visit Plan: Chronic Pain Syndrome - pt has chronic pain - has been maintained on current medications, has not sought out other medications , only uses PRN pain medications as directed, and understands the consequences of over-medication. Muscle spasms - recommended muscle rub. 09/04/2015 Appointment: Araceli Silva WPtel[id number] (15 min) Moderate 09/04/2015 Patient Education: Patient Medication Summary Completed 09/04/2015 Visit Plan: Ecchymosis/hematoma - improving - discussed natural progression of hematomas - watchful waiting. 2015 Appointment: Araceli Silva WPtel: [id number] (15 min) Moderate 2015 Patient Education: Patient Medication Summary Completed 2015 Visit Plan: Cellulitis - continue with oral antibiotics as previously directed, return to clinic as previously directed, call for acute change in symptoms, worsening redness, warmth, discharge. 07/18/2015 Appointment: Ila Kennedy WPtel: [phone] [phone] (30 min) Complex 07/18/2015 Patient Education: [...] through the cancer center/surgery center. 07/02/2015 Appointment: [id number] [place] (15 min) Moderate 07/02/2015 Patient Education: [...] removal process. 04/09/2015 Appointment: [phone] (15 min) Moderate 04/09/2015 Patient Education: Patient [...] d supplementation. 02/08/2015 Appointment: [id number] (15 min) Moderate 02/08/2015 Patient Education: Patient [...] pill in the evening. 12/11/2014 Appointment: Araceli iSlva WPtel: [id number] (15 min) Moderate 12/11/2014 Patient Education: Patient [...] improved. 11/09/2014 Appointment: Araceli Silva WPtel: [facility] (15 min) Moderate 11/09/2014 Patient Education: Patient Medication Summary Completed 11/09/2014 Patient Education: Hypertension Completed 11/09/2014 Visit Plan: Leg pain/cellulitis of leg - start on the doxycycline twice daily - take this x 2 weeks, if the symptoms in your leg/ thigh are not completely resolved, there is a refill that is available. start on a probiotic one pill daily (Vindicia or [facility]) this will help prevent the development of a bad type of diarrhea that can occur when taking antibiotics. Ulcer of toe - improving. 10/23/2014 Appointment: Araceli Silva WPtel: [id number] (15 min) Moderate 10/23/2014 Patient Education: Patient Medication Summary Completed 10/23/2014 Visit Plan: Ulcer - keep lesion covered, antibiotic ointment to be used, monitor - call if redness increases or starts streaking up the foot. 10/16/2014 Appointment: Araceli Silva WPtel: [id number] (15 min) Moderate 10/16/2014 Patient Education: Patient [...] peripheral edema. 09/14/2014 Appointment: Araceli Silva WPtel: [id number] Follow up 09/14/2014 Patient Education: Patient Medication [...] medication. 07/12/2014 Appointment: [id number] [place] ([place] New Patient 07/12/2014 Patient Education: Patient Medication Summary Completed 07/12/2014 Patient Education: Hypertension Completed 07/12/2014 Referral: Dr Virgen Referral Completed Referral: External, Ordering Provider Referral Completed Referral: [facility] WPtel: Referral Initiated Instructions [...] Injection of kenalog 1mL - 40mg - [employer] - lot #[id number] , expires oct 2017 Chronic Pain Syndrome [...] start on a probiotic one pill daily (Vindicia or [employer]) this will help prevent the development of a bad type of diarrhea that can occur when taking antibiotics. . Leg pain/cellulitis of leg - start on the doxycycline twice daily - take this x 2 weeks, if the symptoms in your leg/thigh are not completely resolved, there is a refill that is available. start on a probiotic one pill daily (Vindicia or Yidio) this will help prevent the development of [...] hands/fingers. We will contact [facility] in [place] for paperwork regarding the scooter. . Hypertension [...] of breath -will send rx to [facility] next mammogram will be due in Oct. [...] to continue with use of compression sleeves. [id number] sep 2018 bristol 2ml kenalog . Edema/Lymphedema [...] directed, and understands the consequences of over-medication. Mjbkg-rirdbklzkb-alopjcmy with lasix/metolazone -if swelling/weight increase, okay to [...] office. two old goats muscle rub from [employer] and home. . Chronic Pain Syndrome - [...]
--- OUTSIDE RECORDS SUMMARY | 2018-06-03 16:51 | XMS REPORT | CCD ---
Author Author [facility] Organization [facility] Address [address] [place] [address] Phone Care Team Providers Care Net Sql Developer Name Role Phone PP Unavailable CCM Unavailable Summary Purpose Interface Exchange Insurance Providers Payer name Policy type / Coverage type Covered constitution party ID Effective Begin Date Effective End Date [place] [employer] Medicare Part B [id number] 2017 Unknown AETNA Medicare Part B [id number] Unknown Family history Father Diagnosis Age At [...] Unknown Retired 07/12/[address]: 0755563 Quit over 10 years ago 1967 07/12/2014 [...] Instructions fentanyl 100 mcg/hr transdermal patch RxNorm: 432749 1 Patch TD Q72H use with 25mcg/hr patch 04/07/2018 05/06/2018 Active fentanyl 25 mcg/hr transdermal patch RxNorm: 734842 1 Patch TD Q72H use with 100mcg patch for a total of 125mcg daily 04/07/2018 05/06/2018 Active potassium chloride ER 10 mEq tablet,extended release(part/ cryst) RxNorm: 8230919 2 Tablet(s) PO TID 03/30/2018 07/27/2018 Active oxycodone 30 mg tablet RxNorm: 1995922 1/2 Tablet(s) PO Q6 05/15/2018 Active fentanyl 25 mcg/hr transdermal patch RxNorm: 379419 1 Patch TD Q72H use with 100mcg patch for a total of 125mcg daily 03/17/2018 04/06/2018 Inactive Lasix 40 mg tablet RxNorm: 433560 Tablet(s) PO TAKE 1 TABLET BY MOUTH TWICE DAILY 03/04/2018 No Stop Date Active fentanyl 100 mcg/hr transdermal patch RxNorm: 349900 1 Patch TD Q72H use with 25mcg/hr patch 03/03/2018 04/01/2018 Inactive potassium chloride ER 10 mEq capsule,extended release RxNorm: 163932 2 Capsule(s) PO TID 03/03/2018 03/29/2018 Inactive albuterol sulfate 2.5 mg/3 mL (0.083 %) solution for nebulization RxNorm: 391910 3 Milliliter(s) INH Q4 PRN 02/18/2018 No Stop Date Active cefdinir 300 mg capsule RxNorm: 269370 1 Capsule(s) PO BID 02/24/2018 Inactive cefdinir 300 mg capsule RxNorm: 416956 1 Capsule(s) PO BID 02/17/2018 Inactive Flonase Allergy Relief 50 mcg/actuation nasal spray, suspension RxNorm: 3147120 2 Duncan NASAL daily 02/12/20182017 Inactive Zithromax Z-Humberto 250 mg tablet RxNorm: 080540 1 Tablet(s) PO UD 02/12/2018 02/16/2018 Inactive Lomotil 2.5 mg-0.025 mg tablet RxNorm: 6713384 1 Tablet(s) PO BID PRN 02/09/2018 No Stop Date Active fentanyl 25 mcg/hr transdermal patch RxNorm: 124270 1 Patch TD Q72H use with 100mcg patch for a total of 125mcg daily 02/09/2018 03/10/2018 Inactive oxycodone 30 mg tablet RxNorm: 3034664 1/2 Tablet(s) PO Q6 03/14/2018 Inactive metolazone 10 mg tablet RxNorm: 238835 1 Tablet(s) PO QAM as needed uncontrolled edema 01/14/2018 03/14/2018 Inactive fentanyl 100 mcg/hr transdermal patch RxNorm: 795502 1 Patch TD Q72H use with 25mcg/hr patch 01/14/2018 02/12/2018 Inactive fentanyl 25 mcg/hr transdermal patch RxNorm: 894544 1 Patch TD Q72H use with 100mcg patch for a total of 125mcg daily 01/14/2018 02/08/2018 Inactive metolazone 10 mg tablet RxNorm: 261840 1 Tablet(s) PO every other day as needed uncontrolled edema 01/07/2018 01/13/2018 Inactive metolazone 10 mg tablet RxNorm: 701829 1 Tablet(s) PO every other day as needed uncontrolled edema 01/07/2018 01/06/2018 Inactive Cipro 500 mg tablet RxNorm: 693406 1 Tablet(s) PO BID 201701/05/2018 Inactive Cipro 500 mg tablet RxNorm: 370544 1 Tablet(s) PO BID 201701/15/2018 Inactive Cardizem CD 360 mg capsule,extended release RxNorm: 837164 1 Capsule(s) PO daily 01/05/2018 05/04/2018 Active potassium chloride ER 10 mEq tablet,extended release(part/ cryst) RxNorm: 5598588 2 Capsule(s) PO TID when taking lasix 01/05/2018 05/04/2018 Active potassium chloride ER 10 mEq capsule,extended release RxNorm: 000883 Capsule(s) TAKE 1 CAPSULE BY MOUTH TWICE DAILY WHEN TAKING LASIX (FUROSEMIDE) 11/27/2017 03/02/2018 Inactive potassium chloride ER 10 mEq capsule,extended release RxNorm: 832222 Capsule(s) TAKE 1 CAPSULE BY MOUTH TWICE DAILY WHEN TAKING LASIX (FUROSEMIDE) 11/27/2017 11/26/2017 Inactive fentanyl 25 mcg/hr transdermal patch RxNorm: 318136 1 Patch TD Q72H use with 100mcg patch for a total of 125mcg daily 11/27/2017 12/26/2017 Inactive bumetanide 0.5 mg tablet RxNorm: 359491 1 Tablet(s) PO daily 12/23/2017 Inactive in the afternoon x 3 days then as needed per Dr Silva fentanyl 100 mcg/hr transdermal patch RxNorm: 183219 1 Patch TD Q72H use with 25mcg/hr patch 11/27/2017 12/26/2017 Inactive oxycodone 30 mg tablet RxNorm: 7602083 1/2 Tablet(s) PO Q6 12/27/2017 Inactive fentanyl 100 mcg/hr transdermal patch RxNorm: 882172 1 Patch TD Q72H use with 25mcg/hr patch 10/29/2017 11/26/2017 Inactive Lasix 20 mg tablet RxNorm: 877756 TAKE 1 TABLET BY MOUTH TWICE DAILY 10/29/2017 03/03/2018 Inactive fentanyl 25 mcg/hr transdermal patch RxNorm: 158642 1 Patch TD Q72H use with 100mcg patch for a total of 125mcg daily 10/29/2017 11/26/2017 Inactive pantoprazole 40 mg tablet,delayed release RxNorm: 322445 Tablet(s) Take 1 tablet by mouth daily 10/21/2017 04/18/2018 Active - Ref: [id number] potassium chloride ER 10 mEq capsule,extended release RxNorm: 345736 TAKE 1 CAPSULE BY MOUTH TWICE DAILY WHEN TAKING LASIX (FUROSEMIDE) 10/09/2017 11/26/2017 Inactive fentanyl 25 mcg/hr transdermal patch RxNorm: 863623 1 Patch TD Q72H use with 100mcg patch for a total of 125mcg daily 10/01/2017 10/28/2017 Inactive fentanyl 100 mcg/hr transdermal patch RxNorm: 745711 1 Patch TD Q72H use with 25mcg/hr patch 10/01/2017 10/28/2017 Inactive potassium chloride ER 10 mEq tablet,extended release(part/ cryst) RxNorm: 3124696 1 Capsule(s) PO BID when taking lasix 09/22/2017 01/04/2018 Inactive fentanyl 100 mcg/hr transdermal patch RxNorm: 750263 1 Patch TD Q72H use with 25mcg/hr patch 08/31/2017 09/29/2017 Inactive Kenalog 40 mg/mL suspension for injection RxNorm: 5916218 1 Milliliter(s) Inj 08/31/2017 08/31/2017 Inactive fentanyl 25 mcg/hr transdermal patch RxNorm: 268220 1 Patch TD Q72H use with 100mcg patch for a total of 125mcg daily 08/31/2017 09/29/2017 Inactive oxycodone 30 mg tablet RxNorm: 8651544 1/2 Tablet(s) PO Q6 04/201710/28/2017 Inactive cyanocobalamin (vit B-12) 1,000 mcg/mL injection solution RxNorm: 414552 1 Milliliter(s) Inj monthly 08/21/201708/15 Active please provide her with syringe/needle for injection cyanocobalamin (vit B-12) 1,000 mcg/mL injection solution RxNorm: 542265 1 Milliliter(s) Inj monthly 08/21/201708/20 Inactive please provide her with syringe/needle for injection Kenalog 40 mg/mL suspension for injection RxNorm: 2227803 2 Milliliter(s) Inj 1mL in each shoulder 08/21/2017 08/21/2017 Inactive cyanocobalamin (vit B-12) 1,000 mcg/mL injection solution RxNorm: 977283 1 Milliliter(s) Inj monthly 08/21/201708/20 Inactive please provide her with syringe/needle for injection Kenalog 40 mg/mL suspension for injection RxNorm: 8885695 2 Milliliter(s) Inj UD 08/12/2017 08/12/2017 Inactive fentanyl 25 mcg/hr transdermal patch RxNorm: 148967 1 Patch TD Q72H use with 100mcg patch for a total of 125mcg daily 08/05/2017 08/30/2017 Inactive fentanyl 100 mcg/hr transdermal patch RxNorm: 189819 1 Patch TD Q72H use with 25mcg/hr patch 08/05/2017 08/30/2017 Inactive Kenalog 40 mg/mL suspension for injection RxNorm: 5607613 2 Milliliter(s) Inj 1mL per shoulder 08/05/2017 08/05/2017 Inactive clindamycin HCl 150 mg capsule RxNorm: 949791 1 Capsule(s) PO QID Dr Shultz prescribed 07/23/2017 07/29/2017 Inactive prednisone 5 mg tablet RxNorm: 991490 1 Tablet(s) PO daily 11/201707/03/2018 Active fentanyl 25 mcg/hr transdermal patch RxNorm: 575608 1 Patch TD Q72H use with 100mcg patch for a total of 125mcg daily 07/01/2017 07/30/2017 Inactive Lasix 20 mg tablet RxNorm: 029640 1 Tablet(s) PO BID 201710/28/2017 Inactive fentanyl 100 mcg/hr transdermal patch RxNorm: 679470 1 Patch TD Q72H use with 25mcg/hr patch 07/01/2017 07/30/2017 Inactive potassium chloride ER 10 mEq capsule,extended release RxNorm: 623954 1 Capsule(s) PO BID when taking lasix 07/01/20172017 Inactive oxycodone 30 mg tablet RxNorm: 9819196 1/2 Tablet(s) PO Q6 08/22/2017 Inactive fentanyl 100 mcg/hr transdermal patch RxNorm: 536555 1 Patch TD Q72H use with 25mcg/hr patch 05/07/2017 06/05/2017 Inactive fentanyl 25 mcg/hr transdermal patch RxNorm: 294107 1 Patch TD Q72H use with 100mcg patch for a total of 125mcg daily 05/07/2017 06/05/2017 Inactive fentanyl 100 mcg/hr transdermal patch RxNorm: 361907 1 Patch TD Q72H 04/08/2017 05/06/2017 Inactive fentanyl 25 mcg/hr transdermal patch RxNorm: 031276 1 Patch TD Q72H use with 100mcg patch for a total of 125mcg daily 04/08/2017 05/06/2017 Inactive Kenalog 40 mg/mL suspension for injection RxNorm: 2469678 1.5 Milliliter(s) Inj 04/02/2017 04/02/2017 Inactive fentanyl 100 mcg/hr transdermal patch RxNorm: 366306 1 Patch TD Q72H 03/12/2017 04/07/2017 Inactive fentanyl 25 mcg/hr transdermal patch RxNorm: 782893 1 Patch TD Q72H use with 100mcg patch for a total of 125mcg daily 03/12/2017 04/07/2017 Inactive oxycodone 30 mg tablet RxNorm: 6625393 1/2 Tablet(s) PO Q6 09/201704/07/2017 Inactive cyanocobalamin (vit B-12) 1,000 mcg/mL injection syringe RxNorm: 044170 1 Milliliter(s) Inj monthly 02/16/2017 No Stop Date Active please provide with supplys needed for injection fentanyl 100 mcg/hr transdermal patch RxNorm: 081140 1 Patch TD Q72H 02/06/2017 03/07/2017 Inactive Myrbetriq 50 mg tablet,extended release RxNorm: 9945823 1 Tablet(s) PO QPM 12/11/2016 07/22/2017 Inactive oxycodone 30 mg tablet RxNorm: 8671508 1/2 Tablet(s) PO Q6 10/201601/06/2017 Inactive naproxen 500 mg tablet RxNorm: 603823 1 Tablet(s) PO BID Take 1 tablet by mouth two times daily as needed 12/08/201607/08 Inactive - First Attempt Ref: [id number] Myrbetriq 50 mg tablet,extended release RxNorm: 9942564 1 Tablet(s) PO QPM 11/17/2016 12/10/2016 Inactive fentanyl 100 mcg/hr transdermal patch RxNorm: 700787 1 Patch TD Q72H 11/12/2016 12/11/2016 Inactive Vesicare 10 mg tablet RxNorm: 437599 1 Tablet(s) PO QPM 201611/18/2016 Inactive oxycodone 10 mg tablet RxNorm: 5629548 1-2 Tablet(s) PO Q4 PRN as needed to take between 30mg dose if needed for extra pain control 201612/07/2016 Inactive fentanyl 75 mcg/hr transdermal patch RxNorm: 423406 1 TD Q72H 10/22/2016 11/10/2016 Inactive oxycodone 10 mg tablet RxNorm: 5796466 1-2 Tablet(s) PO Q4 PRN as needed to take between 30mg dose if needed for extra pain control 201611/04/2016 Inactive Kenalog 40 mg/mL suspension for injection RxNorm: 1154375 1 Milliliter(s) Inj 10/02/2016 10/02/2016 Inactive Kenalog 40 mg/mL suspension for injection RxNorm: 3932727 1 Milliliter(s) Inj 09/12/2016 09/12/2016 Inactive cyclobenzaprine 5 mg tablet RxNorm: 297219 1 Tablet(s) PO Q8 as needed muscle spasms 09/11/2016 07/22/2017 Inactive prednisone 10 mg tablets in a dose pack RxNorm: 109777 1 Tablet(s) PO UD 09/09/2016 06/23/2017 Inactive potassium chloride ER 10 mEq capsule,extended release RxNorm: 286860 1 Capsule(s) PO BID as needed when taking lasix 08/26/2016 06/30/2017 Inactive Lasix 20 mg tablet RxNorm: 213530 1 Tablet(s) PO BID daily x 10 days then as needed edema 08/26/2016 12/23/2016 Inactive naproxen 500 mg tablet RxNorm: 082756 Take 1 tablet by mouth two times daily as needed 08/18/2016 11/15/2016 Inactive - First Attempt Ref: [id number] Lasix 20 mg tablet RxNorm: 293031 1 Tablet(s) PO QAM daily x 10 days then as needed edema 08/18/2016 08/25/2016 Inactive Vesicare 5 mg tablet RxNorm: 952689 1 Tablet(s) PO QPM 201611/04/2016 Inactive potassium chloride ER 10 mEq capsule,extended release RxNorm: 824974 1 Capsule(s) PO QAM as needed when taking lasix 08/18/2016 08/25/2016 Inactive Myrbetriq 25 mg tablet,extended release RxNorm: 7803757 1 Tablet(s) PO QHS 07/14/2016 07/29/2016 Inactive pantoprazole 40 mg tablet,delayed release RxNorm: 998776 Take 1 tablet by mouth daily 06/30/2016 12/26/2016 Inactive - Ref: [id number] Embeda 20 mg-0.8 mg capsule, extend release, oral only RxNorm: 332347 1 Capsule(s ) PO daily 06/04/2016 06/03/2016 Inactive Embeda 20 mg-0.8 mg capsule, extend release, oral only RxNorm: 478788 1 Capsule(s ) PO daily 06/04/2016 07/01/2016 Inactive oxycodone 10 mg tablet RxNorm: 7058747 1 Tablet(s) PO QID as needed to take between 30mg dose if needed for extra pain control 201606/10/2016 Inactive oxycodone 30 mg tablet RxNorm: 3554872 1 Tablet(s) PO Q6 201611/04/2016 Inactive cyanocobalamin (vit B-12) 1,000 mcg/mL injection solution RxNorm: 449359 1 Milliliter(s) Inj monthly 02/22/201602/15 Inactive she also needs syringes/ needles for this solution QS oxycodone 30 mg tablet RxNorm: 8760121 1 Tablet(s) PO Q6 201503/19/2016 Inactive oxycodone 10 mg tablet RxNorm: 7344618 1 Tablet(s) PO QID as needed to take between 30mg dose if needed for extra pain control 201503/19/2016 Inactive oxycodone 10 mg tablet RxNorm: 9289682 1 Tablet(s) PO QID as needed to take between 30mg dose if needed for extra pain control 201502/18/2016 Inactive oxycodone 30 mg tablet RxNorm: 8013141 1 Tablet(s) PO Q6 201502/18/2016 Inactive pantoprazole 40 mg tablet,delayed release RxNorm: 514932 Take 1 tablet by mouth daily 01/22/2016 06/29/2016 Inactive - First Attempt Ref: [id number] oxycodone 30 mg tablet RxNorm: 5723703 1 Tablet(s) PO Q6 201501/28/2016 Inactive oxycodone 10 mg tablet RxNorm: 1548433 1 Tablet(s) PO QID as needed take between 20mg dose if needed for extra pain control 11/07/2015 12/06/2015 Inactive oxycodone 20 mg tablet RxNorm: 9075497 1 Tablet(s) PO Q6 as needed 11/07/2015 12/31/2015 Inactive doxycycline hyclate 100 mg tablet RxNorm: 582010 1 Tablet(s) PO BID 11/01/2015 11/10/2015 Inactive potassium chloride ER 10 mEq capsule,extended release RxNorm: 823359 1 Capsule(s) PO TIW as needed when taking lasix 09/04/2015 08/17/2016 Inactive Voltaren 1 % topical gel RxNorm: 484565 2 Gram(s) TOP QID 08/2909/03/2015 Inactive pa approved Voltaren 1 % topical gel RxNorm: 845010 2 Gram(s) TOP QID 08/0808/29/2015 Inactive naproxen 500 mg tablet RxNorm: 299345 1 Tablet(s) PO BID 201508/17/2016 Inactive naproxen 500 mg tablet RxNorm: 106480 1 Tablet(s) PO BID 201508/08/2015 Inactive doxycycline hyclate 100 mg tablet RxNorm: 977111 1 Tablet(s) PO BID do not take calcium/vitamin d while on antibiotic 07/18/2015 07/31/2015 Inactive Vitamin D2 50,000 unit capsule RxNorm: 804160 1 Capsule(s) PO QW 07/02/2015 11/18/2015 Inactive Premarin 0.3 mg tablet RxNorm: 214526 1 Tablet(s) PO daily 12/201505/09/2015 Inactive Premarin 0.3 mg tablet RxNorm: 340205 1 Tablet(s) PO daily 12/201503/17/2016 Inactive simvastatin 40 mg tablet RxNorm: 096945 1 Tablet(s) PO daily 03/17/2016 Inactive spironolactone 25 mg tablet RxNorm: 818244 TAKE ONE TABLET BY MOUTH DAILY 05/07/2015 05/27/2016 Inactive potassium chloride ER 10 mEq capsule,extended release RxNorm: 948375 1 Capsule(s) PO TIW as needed when taking lasix 04/17/2015 09/03/2015 Inactive alendronate 70 mg tablet RxNorm: 054921 1 Tablet(s) PO weekly QW 04/17/2015 07/01/2015 Inactive Vitamin D2 50,000 unit capsule RxNorm: 911634 1 Capsule(s) PO QW 03/30/2015 06/27/2015 Inactive Vitamin D2 50,000 unit capsule RxNorm: 147018 1 Capsule(s) PO QW 03/21/2015 03/29/2015 Inactive cyanocobalamin (vit B-12) 1,000 mcg/mL injection solution RxNorm: 582678 1 Milliliter(s) Inj monthly 03/19/201502/20 Inactive cyanocobalamin (vit B-12) 1,000 mcg/mL injection solution RxNorm: 419210 1 Milliliter(s) Inj monthly 03/16/201503/18 Inactive cyanocobalamin (vit B-12) 1,000 mcg/mL injection solution RxNorm: 445112 1 Milliliter(s) Inj monthly 03/16/201503/15 Inactive pantoprazole 40 mg tablet,delayed release RxNorm: 814678 1 Tablet(s) PO daily 03/05/2015 01/21/2016 Inactive Lasix 20 mg tablet RxNorm: 993886 1 Tablet(s) PO TIW as needed edema 02/08/2015 02/02/2016 Inactive oxycodone 10 mg tablet RxNorm: 8158569 1 Tablet(s) PO QID as needed take between 20mg dose if needed for extra pain control 11/09/2014 12/08/2014 Inactive oxycodone 20 mg tablet RxNorm: 5136035 1 Tablet(s) PO Q6 as needed 10/25/2014 11/06/2015 Inactive doxycycline hyclate 100 mg tablet RxNorm: 071670 1 Tablet(s) PO BID 10/23/2014 11/19/2014 Inactive Cipro 500 mg tablet RxNorm: 797210 1 Tablet(s) PO BID 201410/16/2014 Inactive Cipro 500 mg tablet RxNorm: 548205 1 Tablet(s) PO BID 201410/09/2014 Inactive oxycodone 20 mg tablet RxNorm: 1253997 1 Tablet(s) PO Q6 as needed 09/25/2014 10/24/2014 Inactive Lasix 20 mg tablet RxNorm: 172781 1 Tablet(s) PO TIW as needed edema 09/14/2014 01/11/2015 Inactive potassium chloride ER 10 mEq capsule,extended release RxNorm: 903018 1 Capsule(s) PO TIW as needed when taking lasix 09/14/2014 01/11/2015 Inactive doxycycline hyclate 100 mg tablet RxNorm: 460033 1 Tablet(s) PO BID 09/05/2014 09/14/2014 Inactive doxycycline hyclate 100 mg tablet RxNorm: 332310 1 Tablet(s) PO BID 09/05/2014 09/04/2014 Inactive oxycodone 20 mg tablet RxNorm: 8975957 1 Tablet(s) PO Q6 as needed 08/29/2014 09/24/2014 Inactive spironolactone 25 mg tablet RxNorm: 173623 1 Tablet(s) PO daily 08/11/2014 03/08/2015 Inactive oxycodone 20 mg tablet RxNorm: 6554675 1 Tablet(s) PO Q6 as needed 08/02/2014 08/28/2014 Inactive Vitamin D3 2,000 unit tablet RxNorm: 842021 1 Tablet(s) PO daily 07/14/2014 No Stop Date Active Vitamin D2 50,000 unit capsule RxNorm: 655193 1 Capsule(s) PO QW 07/14/2014 10/11/2014 Inactive Vitamin D2 50,000 unit capsule RxNorm: 109143 1 Capsule(s) PO QW 07/14/2014 07/13/2014 Inactive Prolia 60 mg/mL subcutaneous syringe RxNorm: 915789 Milliliter(s) SQ EVERY 6 MONTHS No Start Date Active Carafate 1 gram tablet RxNorm: 509092 1 Tablet(s) PO BID No Start Date Active Miralax oral RxNorm: 489013 oral No Start Date Active Stool Softener oral RxNorm: 33673 oral No Start Date Active Calcium + Vitamin D oral RxNorm: 4018 oral No Start Date Active naproxen 500 mg tablet RxNorm: 890211 1 Tablet(s) PO BID No Start Date 08/05/2015 Inactive albuterol sulfate 2.5 mg/3 mL (0.083 %) solution for nebulization RxNorm: 985790 3 Milliliter(s) INH Q4 PRN No Start Date 02/17/2018 Inactive oxycodone 20 mg tablet RxNorm: 5427958 1 Tablet(s) PO Q6 as needed No Start Date 08/01/2014 Inactive aspirin 81 mg tablet RxNorm: 193508 1 Tablet(s) PO daily No Start Date 07/22/2017 Inactive simvastatin 40 mg tablet RxNorm: 557811 1 Tablet(s) PO daily No Start Date 05/09/2015 Inactive cyanocobalamin (vit B-12) 1,000 mcg/mL injection syringe RxNorm: 470081 1 Inj monthly No Start Date 02/15/2017 Inactive Reglan 10 mg tablet RxNorm: 893884 1 Tablet(s) PO as needed No Start Date 07/29/2016 Inactive alendronate 70 mg tablet RxNorm: 603724 1 Tablet(s) PO weekly No Start Date 04/16/2015 Inactive Protonix 40 mg tablet,delayed release RxNorm: 951113 1 Tablet(s) PO daily No Start Date 03/04/2015 Inactive cyclobenzaprine 5 mg tablet RxNorm: 970870 1 Tablet(s) PO Q8 as needed muscle spasms No Start Date 09/10/2016 Inactive Vitamin D3 1,000 unit capsule RxNorm: 196239 1 Capsule(s) PO daily No Start Date 07/13/2014 Inactive Cardizem CD 360 mg capsule,extended release RxNorm: 590885 1 Capsule(s) PO daily No Start Date 01/04/2018 Inactive prednisone 10 mg tablets in a dose pack RxNorm: 464128 1 Tablet(s) PO UD No Start Date 09/08/2016 Inactive Medication Administered Medication Codes Instructions Start Date Status Kenalog 40 mg/mL suspension for injection RxNorm: 4897787 1Milliliter 08/31/2017 No longer Active Kenalog 40 mg/mL suspension for injection RxNorm: 3269899 2Milliliter 08/21/2017 No longer Active Kenalog 40 mg/mL suspension for injection RxNorm: 2189006 2MilliliterUD 08/12/2017 No longer Active Kenalog 40 mg/mL suspension for injection RxNorm: 1037273 2Milliliter 08/05/2017 No longer Active Kenalog 40 mg/mL suspension for injection RxNorm: 6361302 1.5Milliliter 04/02/2017 No longer Active Kenalog 40 mg/mL suspension for injection RxNorm: 7398781 1Milliliter 10/02/2016 No longer Active Kenalog 40 mg/mL suspension for injection RxNorm: 1442035 1Milliliter 09/12/2016 No longer Active Immunizations Vaccine [...] Item Item Code Result Date Comp Metabolic Gch245 NA 134 mEq/L 03/03/2018 Comp Metabolic Enr718 K 3.3 mEq/L 03/03/2018 Comp Metabolic Fta547 CL 90 mEq/L 03/03/2018 Comp Metabolic Xtj403 CO2 33.0 mEq/L 03/03/2018 Comp Metabolic Wqm545 ANION GAP 14 03/03/2018 Comp Metabolic Zhb856 GLUCOSE 146 mg/dL 03/03/2018 Comp Metabolic Rjf132 Creat 1.7 mg/dL 03/03/2018 Comp Metabolic Yut903 eGFR 31 ml/min/1.73m2 03/03/2018 Comp Metabolic Cgg165 BUN 74 mg/dL 03/03/2018 Comp Metabolic Vzt744 B/C Ratio 43.8 Ratio 03/03/2018 Comp Metabolic Eex228 CALCIUM 8.6 mg/dL 03/03/2018 Comp Metabolic Ude334 ALK PHOS 70 U/L 03/03/2018 Comp Metabolic Rok488 AST(SGOT) 14 U/L 03/03/2018 Comp Metabolic Njb657 ALT(SGPT) 9 U/L 03/03/2018 Comp Metabolic Pof654 BILI T 0.6 mg/dL 03/03/2018 Comp Metabolic Pcw273 ALBUMIN 3.8 g/dL 03/03/2018 Comp Metabolic Kub740 TPRO 6.7 g/dL 03/03/2018 Comp Metabolic Plc015 GLOB 2.9 g/dL 03/03/2018 Comp Metabolic Irq334 A/G Ratio 1.3 Ratio 03/03/2018 Comp Metabolic Fxs886 Osmo 293 mOsmo 03/03/2018 Cbc With Differential [...] 29.9 pg 03/03/2018 Cbc With Differential Ord2 [place]% 11.1 % 03/03/2018 Cbc With Differential Ord2 [...] 1.38 K/ul 03/03/2018 Cbc With Differential Ord2 [place] ABS# 0.9 K/ul 03/03/2018 Cbc With Differential Ord2 Eos ABS# 0.0 K/ul 03/03/2018 Cbc With Differential Ord2 Baso ABS# 0.1 K/ul 03/03/2018 Tibc Ord40 Iron 75 ug/dl 10/22/2017 Tibc Ord40 UIBC 270 ug/dL 10/22/2017 Tibc Ord40 TIBC 345 ug/dL 10/22/2017 Tibc Ord40 Fe-%Sat 21.7 % 10/22/2017 Prealbumin 063901 PREALBUMIN 33 mg/dL 10/21/2017 Comp Metabolic Zsb125 NA 134 mEq/L 10/20/2017 Comp Metabolic Gsk087 K 3.7 mEq/L 10/20/2017 Comp Metabolic Wgt097 CL 93 mEq/L 10/20/2017 Comp Metabolic Kqe302 CO2 29.0 mEq/L 10/20/2017 Comp Metabolic Csd017 ANION GAP 16 10/20/2017 Comp Metabolic Ool437 GLUCOSE 115 mg/dL 10/20/2017 Comp Metabolic Mdc582 Creat 0.8 mg/dL 10/20/2017 Comp Metabolic Itw947 eGFR 73 ml/min/1.73m2 10/20/2017 Comp Metabolic Cem894 BUN 46 mg/dL 10/20/2017 Comp Metabolic Ugx152 B/C Ratio 57.5 Ratio 10/20/2017 Comp Metabolic Olr319 CALCIUM 8.7 mg/dL 10/20/2017 Comp Metabolic Sim327 ALK PHOS 56 U/L 10/20/2017 Comp Metabolic Eyx568 AST(SGOT) 19 U/L 10/20/2017 Comp Metabolic Hlj502 ALT(SGPT) 23 U/L 10/20/2017 Comp Metabolic Vah466 BILI T 0.6 mg/dL 10/20/2017 Comp Metabolic Xpz985 ALBUMIN 4.0 g/dL 10/20/2017 Comp Metabolic Ivs973 TPRO 6.6 g/dL 10/20/2017 Comp Metabolic Nyv839 GLOB 2.7 g/dL 10/20/2017 Comp Metabolic Asf049 A/G Ratio 1.5 Ratio 10/20/2017 Comp Metabolic Oaz896 Osmo 281 mOsmo 10/20/2017 Tsh Ord6 TSH [...] 35.4 pg 10/20/2017 Cbc With Differential Ord2 [place]% 9.9 % 10/20/2017 Cbc With Differential Ord2 [...] 1.15 K/ul 10/20/2017 Cbc With Differential Ord2 [place] ABS# 0.6 K/ul 10/20/2017 Cbc With Differential Ord2 Eos ABS# 0.0 K/ul 10/20/2017 Cbc With Differential Ord2 Baso ABS# 0.0 K/ul 10/20/2017 Iron Ord72 Iron 75 ug/dl 10/20/2017 Romie Reflex Profile [id number] ROMIE (BRYANNA) SCREEN NONE DETECTED 01/12/2017 Comp Metabolic Wuu156 NA 129 mEq/L 01/08/2017 Comp Metabolic Emc458 K 3.9 mEq/L 01/08/2017 Comp Metabolic Qcl625 CL 94 mEq/L 01/08/2017 Comp Metabolic Epx208 CO2 31.0 mEq/L 01/08/2017 Comp Metabolic Ize485 ANION GAP 8 01/08/2017 Comp Metabolic Abs761 GLUCOSE 103 mg/dL 01/08/2017 Comp Metabolic Zpg468 Creat 0.9 mg/dL 01/08/2017 Comp Metabolic Krm926 eGFR 61 ml/min/1.73m2 01/08/2017 Comp Metabolic Fxi139 BUN 29 mg/dL 01/08/2017 Comp Metabolic Zrl657 B/C Ratio 30.9 Ratio 01/08/2017 Comp Metabolic Cmt360 CALCIUM 8.5 mg/dL 01/08/2017 Comp Metabolic Ygt925 ALK PHOS 58 U/L 01/08/2017 Comp Metabolic Nte152 AST(SGOT) 17 U/L 01/08/2017 Comp Metabolic Phl390 ALT(SGPT) 10 U/L 01/08/2017 Comp Metabolic Enr440 BILI T 0.4 mg/dL 01/08/2017 Comp Metabolic Cuf739 ALBUMIN 3.0 g/dL 01/08/2017 Comp Metabolic Nho974 TPRO 5.5 g/dL 01/08/2017 Comp Metabolic Lpf483 GLOB 2.5 g/dL 01/08/2017 Comp Metabolic Nnw503 A/G Ratio 1.2 Ratio 01/08/2017 Comp Metabolic Bor264 Osmo 265 mOsmo 01/08/2017 Cbc With Differential [...] 23.3 % 01/08/2017 Cbc With Differential Ord2 [place]% 12.2 % 01/08/2017 Cbc With Differential Ord2 [...] 1.62 K/ul 01/08/2017 Cbc With Differential Ord2 [place] ABS# 0.9 K/ul 01/08/2017 Cbc With Differential [...] 100.3 fl 11/10/2016 Cbc With Differential Ord2 [place]% 9.1 % 11/10/2016 Cbc With Differential Ord2 [...] 0.78 K/ul 11/10/2016 Cbc With Differential Ord2 [place] ABS# 0.5 K/ul 11/10/2016 Cbc With Differential [...] 30.3 pg 10/07/2016 Cbc With Differential Ord2 [place]% 11.8 % 10/07/2016 Cbc With Differential Ord2 [...] 1.54 K/ul 10/07/2016 Cbc With Differential Ord2 [place] ABS# 1.0 K/ul 10/07/2016 Cbc With Differential Ord2 Eos ABS# 0.1 K/ul 10/07/2016 Cbc With Differential Ord2 Baso ABS# 0.0 K/ul 10/07/2016 Comp Metabolic Sxp841 NA 129 mEq/L 08/26/2016 Comp Metabolic Kig370 K 3.9 mEq/L 08/26/2016 Comp Metabolic Oov607 CL 93 mEq/L 08/26/2016 Comp Metabolic Phn584 CO2 30.0 mEq/L 08/26/2016 Comp Metabolic Ncg607 ANION GAP 10 08/26/2016 Comp Metabolic Toa304 GLUCOSE 87 mg/dL 08/26/2016 Comp Metabolic Zvi001 Creat 0.6 mg/dL 08/26/2016 Comp Metabolic Lww421 eGFR 96 ml/min/1.73m2 08/26/2016 Comp Metabolic Jiv020 BUN 17 mg/dL 08/26/2016 Comp Metabolic Rwy043 B/C Ratio 27.0 Ratio 08/26/2016 Comp Metabolic Dki516 CALCIUM 7.6 mg/dL 08/26/2016 Comp Metabolic Wdx214 ALK PHOS 72 U/L 08/26/2016 Comp Metabolic Vge537 AST(SGOT) 20 U/L 08/26/2016 Comp Metabolic Zzz966 ALT(SGPT) 12 U/L 08/26/2016 Comp Metabolic Zrr828 BILI T 0.3 mg/dL 08/26/2016 Comp Metabolic Ixx516 ALBUMIN 2.7 g/dL 08/26/2016 Comp Metabolic Rjm437 TPRO 5.3 g/dL 08/26/2016 Comp Metabolic Veu397 GLOB 2.6 g/dL 08/26/2016 Comp Metabolic Bqs083 A/G Ratio 1.1 Ratio 08/26/2016 Comp Metabolic Afw412 Osmo 260 mOsmo 08/26/2016 Cbc With Differential [...] 28.3 pg 08/26/2016 Cbc With Differential Ord2 [place]% 9.6 % 08/26/2016 Cbc With Differential Ord2 [...] 1.83 K/ul 08/26/2016 Cbc With Differential Ord2 [place] ABS# 1.0 K/ul 08/26/2016 Cbc With Differential Ord2 Eos ABS# 0.1 K/ul 08/26/2016 Cbc With Differential Ord2 Baso ABS# 0.0 K/ul 08/26/2016 Magnesium Ord90 Mag 1.9 mg/dL 08/26/2016 Vitamin D 25 Oh [id number] VITAMIN D, 25 HYDROXY 34.59 ng/mL Tibc Ord40 Iron 13 ug/dl 08/26/2016 Tibc Ord40 UIBC 283 ug/dL 08/26/2016 Tibc Ord40 TIBC 296 ug/dL 08/26/2016 Tibc Ord40 Fe-%Sat 4.4 % 08/26/2016 Ferritin Ord22 FERRITIN 28.8 ng/mL 08/26/2016 Sed Rate Ord21 ESR 20 mm/hr 11/19/2015 Comp Metabolic Wsh728 NA 131 mEq/L 08/22/2015 Comp Metabolic The082 K 4.2 mEq/L 08/22/2015 Comp Metabolic Dbn165 CL 98 mEq/L 08/22/2015 Comp Metabolic Lqi283 CO2 27.0 mEq/L 08/22/2015 Comp Metabolic Zdk198 ANION GAP 10 08/22/2015 Comp Metabolic Jxr051 GLUCOSE 80 mg/dL 08/22/2015 Comp Metabolic Ogz238 Creat 0.5 mg/dL 08/22/2015 Comp Metabolic Prh957 eGFR 120 ml/min/1.73m2 08/22/2015 Comp Metabolic Ggt379 BUN 13 mg/dL 08/22/2015 Comp Metabolic Yzs653 B/C Ratio 25.0 Ratio 08/22/2015 Comp Metabolic Jxi252 CALCIUM 8.2 mg/dL 08/22/2015 Comp Metabolic Klq040 ALK PHOS 49 U/L 08/22/2015 Comp Metabolic Rko611 AST(SGOT) 18 U/L 08/22/2015 Comp Metabolic Mql528 ALT(SGPT) 11 U/L 08/22/2015 Comp Metabolic Tgc806 BILI T 0.5 mg/dL 08/22/2015 Comp Metabolic Jad563 ALBUMIN 3.5 g/dL 08/22/2015 Comp Metabolic Kux055 TPRO 6.2 g/dL 08/22/2015 Comp Metabolic Tog423 GLOB 2.7 g/dL 08/22/2015 Comp Metabolic Phi996 A/G Ratio 1.3 Ratio 08/22/2015 Comp Metabolic Eim819 Osmo 262 mOsmo 08/22/2015 Cbc With Differential [...] 32.4 pg 08/22/2015 Cbc With Differential Ord2 [place]% 10.3 % 08/22/2015 Cbc With Differential Ord2 [...] 1.39 K/ul 08/22/2015 Cbc With Differential Ord2 [place] ABS# 0.7 K/ul 08/22/2015 Cbc With Differential Ord2 Eos ABS# 0.1 K/ul 08/22/2015 Cbc With Differential Ord2 Baso ABS# 0.0 K/ul 08/22/2015 Tsh Ord6 hTSH II 2.19 uIU/mL 08/22/2015 Vitamin D 25 Oh [id number] VITAMIN D, 25 HYDROXY 55.10 ng/mL Lipid [...] 1.5 Ratio 03/16/2015 Vitamin D 25 Oh Azs8154 VITAMIN D, 25 HYDROXY 28.94 ng/mL Cbc [...] 28.1 pg 03/16/2015 Cbc With Differential Ord2 [place]% 11.2 % 03/16/2015 Cbc With Differential Ord2 [...] 2.37 K/ul 03/16/2015 Cbc With Differential Ord2 [place] ABS# 0.8 K/ul 03/16/2015 Cbc With Differential Ord2 Eos ABS# 0.1 K/ul 03/16/2015 Cbc With Differential Ord2 Baso ABS# 0.0 K/ul 03/16/2015 Cbc With Differential Ord2 New Analyzer Notice Please note new ref ranges starting 03-14-2015 due to implemntation of new five part differential hematolgy analyzer. 03/16/2015 Comp Metabolic Thw755 NA 131 mEq/L 03/16/2015 Comp Metabolic Ids394 K 4.1 mEq/L 03/16/2015 Comp Metabolic Sdj087 CL 94 mEq/L 03/16/2015 Comp Metabolic Xbr831 CO2 28.0 mEq/L 03/16/2015 Comp Metabolic Bfl555 ANION GAP 13 03/16/2015 Comp Metabolic Gst326 GLUCOSE 96 mg/dL 03/16/2015 Comp Metabolic Rgv273 Creat 0.7 mg/dL 03/16/2015 Comp Metabolic Pid686 eGFR 80 ml/min/1.73m2 03/16/2015 Comp Metabolic Kcr463 BUN 16 mg/dL 03/16/2015 Comp Metabolic Tyy484 B/C Ratio 21.6 Ratio 03/16/2015 Comp Metabolic Jjz597 CALCIUM 8.9 mg/dL 03/16/2015 Comp Metabolic Uca987 ALK PHOS 44 U/L 03/16/2015 Comp Metabolic Qti264 AST(SGOT) 22 U/L 03/16/2015 Comp Metabolic Rti819 ALT(SGPT) 14 U/L 03/16/2015 Comp Metabolic Kpx533 BILI T 0.5 mg/dL 03/16/2015 Comp Metabolic Ndf662 ALBUMIN 3.4 g/dL 03/16/2015 Comp Metabolic Rei719 TPRO 6.0 g/dL 03/16/2015 Comp Metabolic Fax662 GLOB 2.6 g/dL 03/16/2015 Comp Metabolic Blw122 A/G Ratio 1.3 Ratio 03/16/2015 Comp Metabolic Wmo264 Osmo 264 mOsmo 03/16/2015 Comp Metabolic Zdp724 NA 129 mEq/L 11/09/2014 Comp Metabolic Wkm888 K 4.2 mEq/L 11/09/2014 Comp Metabolic Ycj020 CL 96 mEq/L 11/09/2014 Comp Metabolic Mgv952 CO2 27.0 mEq/L 11/09/2014 Comp Metabolic Dyh265 ANION GAP 10 11/09/2014 Comp Metabolic Moi525 GLUCOSE 144 mg/dL 11/09/2014 Comp Metabolic Uzt105 Creat 0.8 mg/dL 11/09/2014 Comp Metabolic Mpb331 eGFR 73 ml/min/1.73m2 11/09/2014 Comp Metabolic Osf062 BUN 22 mg/dL 11/09/2014 Comp Metabolic Zqs224 B/C Ratio 27.5 Ratio 11/09/2014 Comp Metabolic Kru250 CALCIUM 8.6 mg/dL 11/09/2014 Comp Metabolic Ghq182 ALK PHOS 55 U/L 11/09/2014 Comp Metabolic Pue914 AST(SGOT) 27 U/L 11/09/2014 Comp Metabolic Dhy327 ALT(SGPT) 18 U/L 11/09/2014 Comp Metabolic Csn796 BILI T 0.5 mg/dL 11/09/2014 Comp Metabolic Pll639 ALBUMIN 3.0 g/dL 11/09/2014 Comp Metabolic Frf616 TPRO 5.4 g/dL 11/09/2014 Comp Metabolic Oev455 GLOB 2.4 g/dL 11/09/2014 Comp Metabolic Ufu356 A/G Ratio 1.3 Ratio 11/09/2014 Comp Metabolic Yoo454 Osmo 265 mOsmo 11/09/2014 Magnesium Ord90 Mag [...] Procedures Procedure Codes Date DRAIN/INJECT JOINT/BURSA CPT-4: 03919 08/21/2017 DRAIN/INJECT JOINT/BURSA CPT-4: 66542 08/12/2017 TRIAMCINOLONE ACET INJ NOS CPT-4: J3301 08/12/2017 DRAIN/INJECT JOINT/BURSA CPT-4: 53448 08/05/2017 TRIAMCINOLONE ACET INJ NOS CPT-4: J3301 08/05/2017 DRAIN/INJECT JOINT/BURSA CPT-4: 47410 07/23/2017 DRAIN/INJECT JOINT/BURSA CPT-4: 13354 07/09/2017 TRIAMCINOLONE ACET INJ NOS CPT-4: J3301 07/09/2017 PRESCRIP TRANSMIT VIA ERX SY CPT-4: G8553 07/09/2017 DRAIN/INJECT JOINT/BURSA CPT-4: 79442 07/01/2017 TRIAMCINOLONE ACET INJ NOS CPT-4: J3301 07/01/2017 PRESCRIP TRANSMIT VIA ERX SY CPT-4: G8553 07/01/2017 DRAIN/INJECT JOINT/BURSA CPT-4: 22628 06/17/2017 DRAIN/INJECT JOINT/BURSA CPT-4: 74042 04/02/2017 TRIAMCINOLONE ACET INJ NOS CPT-4: J3301 04/02/2017 DRAIN/INJECT JOINT/BURSA CPT-4: 26083 02/06/2017 ADMIN INFLUENZA VIRUS VAC CPT-4: G0008 12/08/2016 FLU VACC PRSV FREE INC ANTIG CPT-4: 13374 12/08/2016 PRESCRIP TRANSMIT VIA ERX SY CPT-4: G8553 12/08/2016 PRESCRIP TRANSMIT VIA ERX SY CPT-4: G8553 11/17/2016 TRIAMCINOLONE ACET INJ NOS CPT-4: J3301 10/02/2016 TRIAMCINOLONE ACET INJ NOS CPT-4: J3301 09/12/2016 DRAIN/INJECT JOINT/BURSA CPT-4: 68776 09/08/2016 TRIAMCINOLONE ACET INJ NOS CPT-4: J3301 09/08/2016 PRESCRIP TRANSMIT VIA ERX SY CPT-4: G8553 08/26/2016 PRESCRIP TRANSMIT VIA ERX SY CPT-4: G8553 08/18/2016 ADMIN INFLUENZA VIRUS VAC CPT-4: G0008 11/19/2015 FLU VACC PRSV FREE INC ANTIG Formatting Model/CDA Sections, Assigned to/Luanne Elaine CPT-4: 36365Obpaqiu 11/19/2015 PRESCRIP TRANSMIT VIA ERX SY CPT-4: G8553 09/04/2015 PRESCRIP TRANSMIT VIA ERX SY CPT-4: G8553 2015 PRESCRIP TRANSMIT VIA ERX SY CPT-4: G8553 07/18/2015 PRESCRIP TRANSMIT VIA ERX SY CPT-4: G8553 07/02/2015 REMOVE IMPACTED EAR WAX UNI CPT-4: 69882 04/09/2015 PRESCRIP TRANSMIT VIA ERX SY CPT-4: G8553 02/08/2015 ADMIN INFLUENZA VIRUS VAC CPT-4: G0008 01/10/2015 FLU VACC PRSV FREE INC ANTIG Formatting Model/CDA Sections, Assigned to/Luanne Elaine CPT-4: 15950Jwgptjj 01/10/2015 ADMIN PNEUMOCOCCAL VACCINE Formatting Model/CDA Sections, Assigned to SNOMED CT: 73710520 CPT-4: L6737Wwkkdmx 12/11/2014 PNEUMOCOCCAL VACC [address]: 18213210 CPT-4: 97742 12/11/2014 Vital Signs Date Vital 03/03/2018 Blood [...] Code : 8480-6 BMI: 23.5 Code : 75274-0 Heart Rate 1 : 58 bpm Height: 5'8" SpO2: 96% Weight: 152 lbs 11/30/2017 Blood Pressure 1: 122/70 Code : 8480-6 Heart Rate 1: 105 bpm Height: 5'8" SpO2: 98% Weight: 11/27/2017 Blood Pressure 1: 148/76 Code : 8480-6 Heart Rate 1: 72 bpm Height: 5'8" SpO2: 99% Weight: 11/10/2017 Blood Pressure 1: 130/76 Code : 8480-6 BMI: 27.3 Code : 38812-2 Heart Rate 1 : 98 bpm Height: [...] Code : 8480-6 BMI: 24.7 Code : 54742-4 Heart Rate 1 : 100 bpm Height: 5'8" SpO2: 95% Weight: 160 lbs 08/31/2017 Blood Pressure 1: 128/78 Code : 8480-6 BMI: 23.6 Code : 13066-2 Heart Rate 1 : 102 bpm Height: 5'8" SpO2: 96% Weight: 153 lbs 08/21/2017 Blood Pressure 1: 138/78 Code : 8480-6 Heart Rate 1: 97 bpm SpO2: 95% Weight: 156 lbs 2 oz 08/12/2017 Blood Pressure 1: 138/74 Code : 8480-6 BMI: 25.0 Code : 46475-5 Heart Rate 1 : 94 bpm Height: 5'8" SpO2: 98% Weight: 162 lbs 08/05/2017 Blood Pressure 1: 126/78 Code : 8480-6 BMI: 25.8 Code : 24082-2 Heart Rate 1 : 74 bpm Height: 5'8" SpO2: 96% Weight: 167 lbs 07/23/2017 Blood Pressure 1: 106/64 Code : 8480-6 BMI: 25.3 Code : 69635-9 Heart Rate 1 : 81 bpm Height: 5'8" SpO2: 99% Weight: 163 lbs 14 oz 07/09/2017 Blood Pressure 1: 130/68 Code : 8480-6 Heart Rate 1: 82 bpm Height: 5'8" SpO2: 98% Weight: 07/01/2017 Blood Pressure 1: 124/76 Code : 8480-6 BMI: 26.5 Code : 65003-9 Heart Rate 1 : 99 bpm Height: 5'8" SpO2: 98% Weight: 172 lbs 06/24/2017 Blood Pressure 1: 118/70 Code : 8480-6 Heart Rate 1: 103 bpm Height: 5'8" SpO2: 98% Weight: 06/17/2017 Blood Pressure 1: 110/64 Code : 8480-6 BMI: 25.0 Code : 19466-0 Heart Rate 1 : 73 bpm Height: 5'8" Weight: 162 lbs 06/01/2017 Blood Pressure 1: 158/84 Code : 8480-6 BMI: 24.4 Code : 35959-3 Heart Rate 1 : 94 bpm Height: 5'8" SpO2: 95% Weight: 158 lbs 04/02/2017 Blood Pressure 1: 164/80 Code : 8480-6 BMI: 23.1 Code : 18671-7 Heart Rate 1 : 76 bpm Height: 5'8" SpO2: 94% Weight: 150 lbs 03/12/2017 Blood Pressure 1: 130/74 Code : 8480-6 BMI: 23.0 Code : 42707-1 Heart Rate 1 : 92 bpm Height: 5'8" SpO2: 94% Weight: 149 lbs 02/06/2017 Height: Weight: 01/08/2017 Blood Pressure 1: 136/76 Code : 8480-6 BMI: 21.4 Code : 47761-8 Heart Rate 1 : 85 bpm Height: 5'8" SpO2: 98% Weight: 138 lbs 8 oz 12/08/2016 Blood Pressure 1: 132/66 Code : 8480-6 BMI: 22.2 Code : 62088-5 Heart Rate 1 : 106 bpm Height: 5'8" SpO2: 97% Weight: 144 lbs 11/17/2016 Blood Pressure 1: 146/80 Code : 8480-6 BMI: 22.4 Code : 58677-9 Heart Rate 1 : 100 bpm Height: 5'8" SpO2: 98% Weight: 145 lbs 11/10/2016 Blood Pressure 1: 122/62 Code : 8480-6 BMI: 22.2 Code : 84496-4 Height: 5'8" Weight: 144 lbs 11/05/2016 Blood Pressure 1: 146/80 Code : 8480-6 BMI: 22.2 Code : 10009-9 Heart Rate 1 : 77 bpm Height: 5'8" SpO2: 99% Weight: 144 lbs 10/07/2016 Blood Pressure 1: 132/68 Code : 8480-6 BMI: 22.8 Code : 46608-1 Heart Rate 1 : 90 bpm Height: 5'8" SpO2: 97% Weight: 148 lbs 10/02/2016 Blood Pressure 1: 166/86 Code : 8480-6 BMI: 22.8 Code : 48134-2 Heart Rate 1 : 96 bpm Height: 5'8" SpO2: 96% Weight: 148 lbs 09/12/2016 Blood Pressure 1: 130/86 Code : 8480-6 Height: Weight: 09/08/2016 Blood Pressure 1: 132/74 Code : 8480-6 BMI: 22.4 Code : 05141-8 Heart Rate 1 : 93 bpm Height: 5'8" SpO2: 99% Weight: 145 lbs 08/26/2016 Blood Pressure 1: 132/78 Code : 8480-6 BMI: 23.9 Code : 40206-3 Heart Rate 1 : 80 bpm Height: 5'8" SpO2: 94% Weight: 155 lbs 08/18/2016 Blood Pressure 1: 130/70 Code : 8480-6 BMI: 23.6 Code : 11445-7 Heart Rate 1 : 100 bpm Height: 5'8" SpO2: 94% Weight: 153 lbs 07/30/2016 Blood Pressure 1: 144/84 Code : 8480-6 BMI: 22.4 Code : 17303-3 Heart Rate 1 : 86 bpm Height: 5'8" SpO2: 97% Weight: 145 lbs 07/14/2016 Blood Pressure 1: 122/74 Code : 8480-6 BMI: 22.5 Code : 63202-2 Heart Rate 1 : 87 bpm Height: 5'8" SpO2: 97% Weight: 146 lbs 07/04/2016 Blood Pressure 1: 128/78 Code : 8480-6 BMI: 22.5 Code : 10096-4 Heart Rate 1 : 98 bpm Height: 5'8" Weight: 146 lbs 06/26/2016 Blood Pressure 1: 122/68 Code : 8480-6 BMI: 22.5 Code : 46442-3 Heart Rate 1 : 102 bpm Height: 5'8" SpO2: 98% Weight: 146 lbs 05/28/2016 Blood Pressure 1: 122/68 Code : 8480-6 BMI: 22.4 Code : 19767-6 Heart Rate 1 : 89 bpm Height: 5'8" SpO2: 97% Weight: 145 lbs 03/18/2016 Blood Pressure 1: 132/66 Code : 8480-6 BMI: 22.8 Code : 37859-7 Heart Rate 1 : 96 bpm Height: 5'8" SpO2: 98% Weight: 148 lbs 01/29/2016 Blood Pressure 1: 122/66 Code : 8480-6 BMI: 22.2 Code : 51242-8 Heart Rate 1 : 90 bpm Height: 5'8" SpO2: 99% Weight: 144 lbs 01/01/2016 Blood Pressure 1: 148/82 Code : 8480-6 BMI: 22.5 Code : 13651-4 Heart Rate 1 : 82 bpm Height: 5'8" Weight: 146 lbs 11/19/2015 Blood Pressure 1: 140/74 Code : 8480-6 BMI: 23.7 Code : 39887-6 Heart Rate 1 : 79 bpm Height: 5'8" SpO2: 96% Weight: 153 lbs 8 oz 11/01/2015 Blood Pressure 1: 118/72 Code : 8480-6 Heart Rate 1: 90 bpm Height: 5'8" SpO2: 95% 09/04/2015 Blood Pressure 1: 136/72 Code : 8480-6 BMI: 23.1 Code : 71564-6 Heart Rate 1 : 97 bpm Height: 5'8" SpO2: 98% Weight: 149 lbs 8 oz 2015 Blood Pressure 1: 144/76 Code : 8480-6 BMI: 22.8 Code : 97790-0 Heart Rate 1 : 75 bpm Height: 5'8" SpO2: 97% Weight: 148 lbs 07/18/2015 Blood Pressure 1: 132/60 Code : 8480-6 BMI: 23.1 Code : 08611-1 Heart Rate 1 : 78 bpm Height: 5'8" Weight: 150 lbs 07/02/2015 Blood Pressure 1: 156/86 Code : 8480-6 BMI: 23.0 Code : 26234-1 Heart Rate 1 : 75 bpm Height: 5'8" SpO2: 99% Weight: 149 lbs 05/31/2015 Blood Pressure 1: 136/72 Code : 8480-6 BMI: 22.7 Code : 45059-3 Heart Rate 1 : 85 bpm Height: 5'8" SpO2: 97% Weight: 147 lbs 04/09/2015 Blood Pressure 1: 118/60 Code : 8480-6 BMI: 22.7 Code : 63899-7 Heart Rate 1 : 72 bpm Height: 5'8" SpO2: 95% Weight: 147 lbs 02/08/2015 Blood Pressure 1: 138/76 Code : 8480-6 BMI: 23.1 Code : 82648-3 Heart Rate 1 : 80 bpm Height: 5'8" SpO2: 98% Weight: 150 lbs 12/11/2014 Blood Pressure 1: 120/74 Code : 8480-6 BMI: 22.1 Code : 83629-3 Heart Rate 1 : 92 bpm Height: 5'8" SpO2: 96% Weight: 143 lbs 11/09/2014 Blood Pressure 1: 100/64 Code : 8480-6 BMI: 21.6 Code : 49455-0 Heart Rate 1 : 88 bpm Height: 5'8" Weight: 140 lbs 10/23/2014 Blood Pressure 1: 138/82 Code : 8480-6 BMI: 23.6 Code : 19927-1 Heart Rate 1 : 86 bpm Height: 5'8" Weight: 153 lbs 10/16/2014 Blood Pressure 1: 128/60 Code : 8480-6 BMI: 23.3 Code : 29200-3 Heart Rate 1 : 91 bpm Height: 5'8" SpO2: 99% Weight: 151 lbs 10/09/2014 Blood Pressure 1: 120/60 Code : 8480-6 BMI: 23.0 Code : 84071-8 Heart Rate 1 : 96 bpm Height: 5'8" SpO2: 97% Weight: 149 lbs 09/14/2014 Blood Pressure 1: 132/72 Code : 8480-6 BMI: 22.1 Code : 56618-2 Heart Rate 1 : 84 bpm Height: 5'8" SpO2: 97% Weight: 143 lbs 08/11/2014 Blood Pressure 1: 134/74 Code : 8480-6 BMI: 24.1 Code : 50903-0 Heart Rate 1 : 88 bpm Height: 5'8" Weight: 156 lbs 07/12/2014 Blood Pressure 1: 122/62 Code : 8480-6 BMI: 22.7 Code : 31269-3 Heart Rate 1 : 76 bpm Height: [...] Dr. Blancas in [place] and Neurosurgeon in [place] in the past neck pain Significant Medical Conditions spinal stenosis 07/12/2014 has osteoarthritis Advance Directives No Advance Directive data Encounters Encounter Performer Location Codes Date ([id number]) [id number] EST. PATIENT, LEVEL IV Diagnosis: Essential (primary) hypertension[ICD10: I10] Diagnosis: Hypo-osmolality and hyponatremia[ICD10: E87.1] Diagnosis: Chronic pain syndrome[ICD10: G89.4] Araceli Silva MD, [facility] CPT-4: 48779 03/03/2018 ([id number]) 87446 EST. PATIENT, LEVEL III Diagnosis: Cough[ICD10: R05] Diagnosis: Acute bronchitis, unspecified[ICD10: J20.9] Diagnosis: Chronic obstructive pulmonary disease, unspecified[ICD10: J44.9] Ila Silva MD, [facility] CPT-4: 48058 02/12/2018 ([id number]) 19197 EST. PATIENT, LEVEL IV Diagnosis: Chronic pain syndrome[ICD10: G89.4] Diagnosis: Cough[ICD10: R05] Diagnosis: Diarrhea, unspecified[ICD10: R19.7] Diagnosis: Generalized edema[ICD10: R60.1] Ila Silva MD, [facility] CPT-4: 50394 02/09/2018 ([id number]) 56980 EST. PATIENT, LEVEL III Diagnosis: Generalized edema[ICD10: R60.1] Diagnosis: Lymphedema, not elsewhere classified[ICD10: I89.0] Araceli Silva MD, [facility] CPT-4: 73886 01/14/2018 ([id number]) 88734 EST. PATIENT, LEVEL IV Diagnosis: Essential (primary) hypertension[ICD10: I10] Diagnosis: Generalized edema[ICD10: R60.1] Diagnosis: Chronic pain syndrome[ICD10: G89.4] Araceli Silva MD, [facility] CPT-4: 53784 12/24/2017 ([id number]) 93407 EST. PATIENT, LEVEL III Diagnosis: Lymphedema, not elsewhere classified[ICD10: I89.0] Araceli Silva MD, [facility] CPT-4: 33005 11/30/2017 ([id number]) 59664 EST. PATIENT, LEVEL III Diagnosis: Generalized edema[ICD10: R60.1] Ila Silva MD, [facility] CPT-4: 33592 11/27/2017 ([id number]) 03472 EST. PATIENT, LEVEL IV Diagnosis: Localized edema[ICD10: [...] shoulder[ICD10: M25.512] [facility] CPT-4: 15829 11/10/2017 ([id number]) 13820 EST. PATIENT, LEVEL IV Diagnosis: Localized edema[ICD10: [...] shoulder[ICD10: M25.512] [facility] CPT-4: 16415 10/29/2017 ([id number]) 49596 EST. PATIENT, LEVEL IV Diagnosis: Essential (primary) [...] R60.0] [facility] CPT- 4: 80032 10/20/2017 [id number]) 01856 EST. 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 PATIENT, LEVEL IV Diagnosis: Primary osteoarthritis, left shoulder[ICD10: M19.012] Diagnosis: Pain in left shoulder[ICD10: M25.512] Diagnosis: Lymphedema, not elsewhere classified[ICD10: I89.0] Diagnosis: Localized edema[ICD10: R60.0] Diagnosis: Chronic atrial fibrillation[ICD10: I48.2] Araceli Silva MD, [facility] CPT-4: 06651 09/15/2017 [id number] [id number] EST. PATIENT, LEVEL III Diagnosis: Primary osteoarthritis, left shoulder[ICD10: M19.012] Diagnosis: Pain in left shoulder[ICD10: M25.512] Diagnosis: Hemarthrosis, left shoulder[ICD10: M25.012] Araceli Silva MD, [facility] CPT-4: 47379 08/31/2017 [id number]) 58416 EST. 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 PATIENT, LEVEL III Diagnosis: Localized edema[ICD10: R60.0] Araceli Silva MD [facility] CPT- 4: 44825 07/23/2017 ([id number]) 38696 EST. PATIENT, LEVEL III Diagnosis: Rheumatoid arthritis without rheumatoid factor, left shoulder[ICD10: M06.012] Diagnosis: Hemarthrosis, left shoulder[ICD10: M25.012] Araceli Silva MD, [facility] CPT-4: 78910 07/09/2017 ([id number]) 83573 EST. PATIENT, LEVEL III Diagnosis: Chronic pain syndrome[ICD10: G89.4] Diagnosis: Rheumatoid arthritis without rheumatoid factor, left shoulder[ICD10: M06.012] Diagnosis: Hemarthrosis, left shoulder[ICD10: M25.012] Diagnosis: Lymphedema, not elsewhere classified[ICD10: I89.0] Araceli Silva MD, [facility] CPT-4: 40810 07/01/2017 ([id number]) 66408 EST. PATIENT, LEVEL III Diagnosis: Chronic pain syndrome[ICD10: G89.4] Araceli Silva MD, [facility] CPT-4: 99476 06/24/2017 ([id number]) 23873 EST. 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 PATIENT, LEVEL III Diagnosis: Pain in left shoulder[ICD10: M25.512] Diagnosis: Hemarthrosis, right shoulder[ICD10: M25.011] Diagnosis: Hemarthrosis, left shoulder[ICD10: M25.012] Maricel Silva MD, [facility] CPT-4: 26268 06/01/2017 ([id number]) 95489 EST. PATIENT, LEVEL II Diagnosis: Pain in right shoulder[ICD10: M25.511] Diagnosis: Hemarthrosis, right shoulder[ICD10: M25.011] Araceli Silva MD [facility] CPT-4: 05494 04/02/2017 ([id number]) 02241 EST. 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 PATIENT, LEVEL IV Diagnosis: Encounter for immunization[ICD10: Z23] Diagnosis: Chronic pain syndrome[ICD10: G89.4] Diagnosis: Essential (primary) hypertension[ICD10: I10] Araceli Silva MD, [facility] CPT-4: 10181 12/08/2016 ([id number]) 00066 EST. PATIENT, LEVEL III Diagnosis: Urge incontinence[ICD10: N39.41] Diagnosis: Chronic pain syndrome[ICD10: G89.4] Diagnosis: Lymphedema, not elsewhere classified[ICD10: I89.0] Araceli Silva MD, [facility] CPT-4: 33578 11/17/2016 [id number] EST. 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 PATIENT, LEVEL IV Diagnosis: Essential (primary) hypertension[ICD10: I10] Diagnosis: Other chronic pain[ICD10: G89.29] Diagnosis: Localized edema[ICD10: R60.0] Diagnosis: Urge incontinence[ICD10: N39.41] Araceli Silva MD, [facility] CPT-4: 37683 11/05/2016 ([id number]) 36838 EST. 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 PATIENT, LEVEL III Diagnosis: Hemarthrosis, right shoulder[ICD10: M25.011] Diagnosis: Pain in right shoulder[ICD10: M25.511] Ila Silva MD, [facility] CPT-4: 65966 10/02/2016 [id number] EST. PATIENT, LEVEL II Diagnosis: Low back pain[ICD10: M54.5] Diagnosis: Sacroiliitis, not elsewhere classified[ICD10: M46.1] Ila Silva MD, [facility] CPT-4: 65362 09/12/2016 ([id number]) 54821 EST. PATIENT, LEVEL III Diagnosis: Hemarthrosis, right shoulder[ICD10: M25.011] Diagnosis: Other chronic pain[ICD10: G89.29] Araceli Silva MD, [facility] CPT-4: 15572 09/08/2016 ([id number]) 33636 EST. PATIENT, LEVEL IV Diagnosis: Other iron deficiency anemias[ICD10: D50.8] Diagnosis: Vitamin D deficiency, unspecified[ICD10: E55.9] Diagnosis: Hypomagnesemia[ICD10: E83.42] Araceli Silva MD [facility] CPT- 4: 69614 08/26/2016 ([id number]) 43320 EST. PATIENT, LEVEL III Diagnosis: Localized edema[ICD10: R60.0] Araceli Silva MD [facility] CPT- 4: 09023 08/18/2016 ([id number]) 87006 EST. 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 PATIENT, LEVEL IV Diagnosis: Pain in left shoulder[ICD10: M25.512] Diagnosis: Nocturia[ICD10: R35.1] Maricel Silva MD, [facility] CPT-4: 62427 07/14/2016 67044 EST. PATIENT, LEVEL III Diagnosis: Pain in left shoulder[ICD10: M25.512] Maricel Silva MD [facility] CPT-4: 60628 07/04/2016 ([id number]) 11692 EST. 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 PATIENT, LEVEL II Diagnosis: Insect bite (nonvenomous) of right upper arm, initial encounter[ICD10 : S40.861A] [facility] CPT-4: 75198 11/01/2015 ([id number]) 98468 EST. 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 PATIENT, LEVEL III Diagnosis: Contusion of left upper arm, subsequent encounter[ICD10: S40.022D] Araceli Silva MD, [facility] CPT-4: 90103 2015 64114 EST. PATIENT, LEVEL III Diagnosis: Cellulitis of left upper limb[ICD10: L03.114] Maricel Silva MD, [facility] CPT-4: 02876 07/18/2015 ([id number]) 69916 EST. 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 PATIENT, LEVEL IV Diagnosis: Essential (primary) hypertension[ICD10: I10] Diagnosis: Vitamin D deficiency, unspecified[ICD10: E55.9] Diagnosis: Mixed hyperlipidemia[ICD10: E78.2] Diagnosis: Age-related osteoporosis with current pathological fracture, unspecified site, sequela[ICD10: M80.00XS] Araceli Silva MD, [facility] CPT- 4: 60814 02/08/2015 ([id number]) 90824 EST. PATIENT, LEVEL IV Diagnosis: Essential (primary) hypertension[ICD10: I10] Diagnosis: Localized edema[ICD10: R60.0] Diagnosis: Primary osteoarthritis, unspecified site[ICD10: M19.91] Araceli Silva MD [facility] CPT-4: 88093 12/11/2014 ([id number]) 91900 EST. PATIENT, LEVEL III Diagnosis: EDEMA[ICD9: 782.3] Diagnosis: ESSENTIAL HYPERTENSION[ICD9: 401.9] Araceli Silva MD [facility] CPT-4: 73479 11/09/2014 ([id number]) 54146 EST. PATIENT, LEVEL III Diagnosis: Leg pain[ICD9: 729.5] Diagnosis: Ulcer of toe[ICD9: 707.15] Araceli Silva MD [facility] CPT- 4: 50127 10/23/2014 ([id number]) 86517 EST. PATIENT, LEVEL III Diagnosis: Ulcer of toe[ICD9: 707.15] Araceli Silva MD [facility] CPT- 4: 33106 10/16/2014 99435 EST. PATIENT, LEVEL II Diagnosis: Ulcer of toe[ICD9: 707.15] Ila Silva MD, [facility] CPT-4: 99826 10/09/2014 ([id number]) 53391 EST. PATIENT, LEVEL III Diagnosis: EDEMA[ICD9: 782.3] Araceli Silva MD [facility] CPT-4: 21824 09/14/2014 ([id number]) 84481 EST. PATIENT, LEVEL IV Diagnosis: EDEMA[ICD9: 782.3] Diagnosis: ESSENTIAL HYPERTENSION[ICD9: 401.9] Araceli Silva MD, [facility] CPT-4: 47543 08/11/2014 ([id number]) OFFICE VISIT, NEW - LEVEL 4 Diagnosis: HYPERLIPIDEMIA[ICD9: 272.4] Diagnosis: VITAMIN D DEFICIENCY[ICD9: 268.9] Diagnosis: Osteoporosis[ICD9: 733.00] Diagnosis: Esophageal reflux[ICD9: 530.81] Diagnosis: Chronic pain[ICD9: 338.29] [facility] CPT- 4: 00723 07/12/2014 Plan of Care Planned Activity Notes [...] fentanyl 03/03/2018 Appointment: [facility] Silva [facility]el[phone] [place] (15 min) Moderate 03/03/2018 Patient Education: Patient [...] - [place] [facility] [place]12/[place] Appointment: [facility] Kennedy [facility]el[facility] ([facility] min[facility] Complex 02/12/2018 Patient Education: Patient Medication Summary Completed 02/12/2018 Visit Plan: Chronic Pain Syndrome - pt has chronic pain - has been maintained on current medications, has not sought out other medications , only uses PRN pain medications as directed, and understands the consequences of over-medication. Zluxv-mbjmzbitls-yurwqsmv with lasix/metolazone -if swelling /weight increase, okay to increase metolazone to daily as directed Cough- okay for robitussin dm Diarrhea- rx for lomotil written and instructed on use-follow up in 3 weeks, sooner if needed. Call with any concerns. 02/09/2018 Appointment: [phone] [place] (30 min) Complex 02/09/2018 Patient Education: Patient Medication Summary Completed 02/09/2018 Appointment: Araceli Silva WPtel: [facility] [place] (15 min) Moderate 02/04/2018 Visit Plan: [...] over-medication. 01/14/2018 Appointment: Araceli Silva WPtel: [phone] [place] (15 min) Moderate 01/14/2018 Patient Education: [...] scheduled. 12/24/2017 Appointment: Araceli Silva WPtel: [phone] [place] (30 min) Complex 12/24/2017 Patient Education: [...] output. 11/30/2017 Appointment: Araceli Silva WPtel: [phone] (15 min) Moderate 11/30/2017 Patient Education: Patient [...] of over-medication. 11/10/2017 Appointment: Araceli Silva WPtel: [id number] (15 min) Moderate 11/10/2017 Patient Education: Patient [...] severe RA of hands/fingers. We will contact [employer] in [place] for paperwork regarding the scooter. 10/29/2017 Appointment: Araceli Silva WPtel: [id number] (15 min) Moderate 10/29/2017 Patient Education: Patient [...] time. 10/20/2017 Appointment: Araceli Silva WPtel: [phone] [place] (30 min) Complex 10/20/2017 Patient Education: [...] drained today. 09/29/2017 Appointment: Araceli Silva WPtel: [address] [place], [place] [id number] (15 min) Moderate 09/29/2017 Patient Education: Patient [...] Completed 08/21/2017 Appointment: Araceli Silva WPtel: [phone] [place] (15 min) Moderate 08/20/2017 Visit Plan: Hemarthrosis shoulders - 250mL from left shoulder and 100mL from right shoulder with 1ml kenalog injected into right and left shoulders - Left and right shoulder pain and swelling, swelling into arms and left breast -pt to continue with use of compression sleeves. [id number] sep 2018 bristol 2ml kenalog 08/12/2017 Appointment: Araceli Silva WPtel: [id number] (15 min) Moderate 08/12/2017 Patient Education: Patient [...] peripheral edema. 08/05/2017 Appointment: Araceli Silva WPtel: [id number] (15 min) Moderate 08/05/2017 Patient Education: Patient [...] peripheral edema. 07/23/2017 Appointment: Araceli Silva WPtel: [address] [place], [place] [id number] (15 min) Moderate 07/23/2017 Patient Education: [...] monitor symptoms. 07/09/2017 Appointment: Araceli Silva WPtel: [address] [place], [place] [id number] (15 min) Moderate 07/09/2017 Patient Education: Patient [...] monitor symptoms. 07/01/2017 Appointment: Araceli Silva WPtel: [id number] (15 min) Moderate 07/01/2017 Patient Education: Patient Medication Summary Completed 07/01/2017 Visit Plan: Chronic Pain Syndrome - pt has chronic pain - has been maintained on current medications, has not sought out other medications , only uses PRN pain medications as directed, and understands the consequences of over-medication. 06/24/2017 Appointment: Araceli Silva WPtel: [id number] (15 min) Moderate 06/24/2017 Patient Education: Patient [...] edema. 06/17/2017 Appointment: Araceli Silva WPtel: [id number] (30 min) Complex 06/17/2017 Patient Education: Patient Medication Summary Completed 06/17/2017 Appointment: Araceli Silva WPtel: [phone] [place] (15 min) Moderate 06/08/2017 Care Plan: Referral Order SNOMED-CT : [id number] Pending 06/02/2017 Visit Plan: Left and right [...] peripheral edema. 06/01/2017 Appointment: [phone] [place] (30 min) Complex 06/01/2017 Patient [...] shoulder 04/02/2017 Appointment: Araceli Silva WPtel: [phone] [place] (15 min) Moderate 04/02/2017 Patient Education: [...] upset. 03/12/2017 Appointment: Araceli Silva WPtel: [phone] [place] (15 min) Moderate 03/12/2017 Patient Education: [...] check ROMIE. 01/08/2017 Appointment: Araceli Silva WPtel: [facility] (15 min) Moderate 01/08/2017 Patient Education: Patient [...] with Remicaide. 12/08/2016 Appointment: Araceli Silva WPtel: [facility] (15 min) Moderate 12/08/2016 Patient Education: Patient [...] for now 11/17/2016 Appointment: Araceli Silva WPtel: [facility]7 [facility] (15 min) Moderate 11/17/2016 Patient Education: Patient [...] over-medication. 11/10/2016 Appointment: Maricel Gee WPtel: [phone] [facility] (30 min) Complex 11/10/2016 Patient Education: Patient [...] steroids, immunosuppression. 11/05/2016 Appointment: Araceli Silva WPtel: [facility]3 [facility] (15 min) Moderate 11/05/2016 Patient Education: Patient [...] today. 10/07/2016 Appointment: Araceli Silva WPtel: [phone] [facility] [place] (15 min) Moderate 10/07/2016 Patient Education: Patient Medication Summary Completed 10/07/2016 Care Plan: Referral Order SNOMED-CT : [id number] Pending 10/07/2016 Care Plan: Referral Order SNOMED-CT : [id number] Pending 10/07/2016 Visit Plan: Hemarthrosis -right shoulder-only able to drain 5ml of bloody drainage-unable to give oral steroids due to recent GI bleed -will give kenalog injection today in the office-discussed getting OSMO patch 10/02/2016 Appointment: Ila Kennedy WPtel: [facility]5 [phone] [place] (30 min) Complex 10/02/2016 Patient Education: Patient Medication Summary Completed 10/02/2016 Appointment: Araceli Silva WPtel: [facility]5 [facility] [place] (15 min) Moderate 09/23/2016 Appointment: Araceli Silva WPtel: [facility]5 [facility] [place] (15 min) Moderate 09/17/2016 Visit Plan: Sacroiliitis - back exercises discussed with the patient, pt to continue with anti-inflammatories. Pt is to call if the symptoms do not improve or if they worsen. Kenalog injection today in the office. 09/12/2016 Appointment: Ila Kennedy WPtel: [facility]5 [phone] [place] (15 min) Moderate 09/12/2016 Patient Education: [...] Injection of kenalog 1mL - 40mg - [employer] - lot #[id number] , expires oct 2017 Chronic Pain Syndrome - pt has chronic pain - has been maintained on current medications, has not sought out other medications, only uses PRN pain medications as directed, and understands the consequences of over-medication. 09/08/2016 Appointment: Araceli Silva WPtel: [address] [place], [place] [phone] (15 min) Moderate 09/08/2016 Patient Education: Patient [...] magnesium level 08/26/2016 Appointment: Araceli Silva WPtel: [facility]8 [facility] (15 min) Moderate 08/26/2016 Patient Education: [...] Summary Completed 08/18/2016 Appointment: Araceli Silva WPtel: [facility]1 [facility] (15 min) Moderate 08/13/2016 Appointment: Araceli Silva WPtel: [address] [place], [place] [id number] (15 min) Moderate 08/06/2016 Visit Plan: [...] the daytime. 07/30/2016 Appointment: Araceli Silva WPtel: [facility]5 [facility] (15 min) Moderate 07/30/2016 Patient Education: Patient Medication Summary Completed 07/30/2016 Visit Plan: Left shoulder pain - improving - pt is to notify clinic if symptoms do not improve, if they worsen, or with any questions or concerns. Nocturia - will give samples, pt is to notify clinic if symptoms do not improve. 07/14/2016 Appointment: Maricel Gee WPtel: [facility]6 [facility] (30 min) Complex 07/14/2016 Patient Education: [...] any dyspnea. 07/04/2016 Appointment: Maricel Gee WPtel: [facility]5 [facility] (30 min) Complex 07/04/2016 Patient Education: Patient [...] over- medication. 06/26/2016 Appointment: Araceli Silva WPtel: [facility]6 [facility] (15 min) Moderate 06/26/2016 Patient Education: Patient [...] over-medication. 05/28/2016 Appointment: Araceli Silva WPtel: [phone] [facility] [place] (15 min) Moderate 05/28/2016 Patient Education: Patient Medication Summary Completed 05/28/2016 Patient Education: Hypertension Completed 05/28/2016 Appointment: Araceli Silva WPtel: [phone] [facility] [place] (15 min) Moderate 05/12/2016 Appointment: Araceli Silva WPtel: [phone] [facility] [place] (15 min) Moderate 04/15/2016 Appointment: Araceli Silva WPtel: [phone] [place] (30 min) Complex 03/25/2016 Visit Plan: [...] premarin. 03/18/2016 Appointment: Araceli Silva WPtel: [phone] [place] (30 min) Complex 03/18/2016 Patient Education: Patient Medication Summary Completed 03/18/2016 Appointment: Araceli Silva WPtel: [phone] (15 min) Moderate 02/19/2016 Visit Plan: Hypertension [...] of over-medication. 01/29/2016 Appointment: Araceli Silva WPtel: [facility]9 [facility] (15 min) Moderate 01/29/2016 Patient Education: Patient Medication Summary Completed 01/29/2016 Visit Plan: Discussed MRI of the neck - pt is interested in doing this - however, not prior to changing her medication first to see if this helps her pain 01/01/2016 Appointment: Araceli Silva WPtel: [facility]8 [facility] (15 min) Moderate 01/01/2016 Patient Education: Patient Medication Summary Completed 01/01/2016 Patient Education: Hypertension Completed 01/01/2016 Appointment: Araceli Silva WPtel: [facility]9 [facility] (15 min) Moderate 12/03/2015 Visit Plan: Chronic [...] or nonhealing. 11/01/2015 Appointment: Ila Kennedy WPtel: [facility]4 [phone] (15 min) Moderate 11/01/2015 Patient Education: Patient Medication Summary Completed 11/01/2015 Visit Plan: Chronic Pain Syndrome - pt has chronic pain - has been maintained on current medications, has not sought out other medications , only uses PRN pain medications as directed, and understands the consequences of over-medication. Muscle spasms - recommended muscle rub. 09/04/2015 Appointment: Araceli Silva WPtel: [facility] (15 min) Moderate 09/04/2015 Patient Education: Patient Medication Summary Completed 09/04/2015 Visit Plan: Ecchymosis/hematoma - improving - discussed natural progression of hematomas - watchful waiting. 2015 Appointment: Araceli Silva WPtel: [facility]4 [facility] (15 min) Moderate 2015 Patient Education: Patient Medication Summary Completed 2015 Visit Plan: Cellulitis - continue with oral antibiotics as previously directed, return to clinic as previously directed, call for acute change in symptoms, worsening redness, warmth, discharge. 07/18/2015 Appointment: Ila Kennedy WPtel: [facility]0 [phone] [place] (30 min) Complex 07/18/2015 Patient Education: [...] center/surgery center. 07/02/2015 Appointment: Araceli Silva WPtel: [facility] [place] (15 min) Moderate 07/02/2015 Patient Education: [...] process. 04/09/2015 Appointment: Araceli Silva WPtel: [phone] [facility] (15 min) Moderate 04/09/2015 Patient Education: Patient [...] supplementation. 02/08/2015 Appointment: Araceli Silva WPtel: [phone] [facility] (15 min) Moderate 02/08/2015 Patient Education: Patient [...] the evening. 12/11/2014 Appointment: Araceli Silva WPtel: [facility]0 [facility] (15 min) Moderate 12/11/2014 Patient Education: Patient [...] - improved. 11/09/2014 Appointment: Araceli Silva WPtel: [facility] (15 min) Moderate 11/09/2014 Patient Education: Patient Medication Summary Completed 11/09/2014 Patient Education: Hypertension Completed 11/09/2014 Visit Plan: Leg pain/cellulitis of leg - start on the doxycycline twice daily - take this x 2 weeks, if the symptoms in your leg/ thigh are not completely resolved, there is a refill that is available. start on a probiotic one pill daily ([employer] or [employer] ([employer])) this will help prevent the development of a bad type of diarrhea that can occur when taking antibiotics. Ulcer of toe - improving. 10/23/2014 Appointment: Araceli Silvatel: [facility]9 [facility] (15 min) Moderate 10/23/2014 Patient Education: Patient Medication Summary Completed 10/23/2014 Visit Plan: Ulcer - keep lesion covered, antibiotic ointment to be used, monitor - call if redness increases or starts streaking up the foot. 10/16/2014 Appointment: Araceli Silva WPtel: [facility]5 [facility] (15 min) Moderate 10/16/2014 Patient Education: Patient [...] peripheral edema. 09/14/2014 Appointment: Araceli Silva WPtel: [facility] Follow up 09/14/2014 Patient Education: Patient Medication [...] medication. 07/12/2014 Appointment: Araceli Silva WPtel: [facility] [place] (S) New Patient 07/12/2014 Patient Education: [...] Inflammatory Arthritis - continue with Remicaide. . Chronic Pain Syndrome - pt has [...] start on a probiotic one pill daily ([employer] or [employer] ([employer])) this will help prevent the development of a bad type of diarrhea that can occur when taking antibiotics. . Leg pain/cellulitis of leg - start on the doxycycline twice daily - take this x 2 weeks, if the symptoms in your leg/thigh are not completely resolved, there is a refill that is available. start on a probiotic one pill daily ([employer] or [employer] ([employer])) this will help prevent the development of [...] Injection of kenalog 1mL - 40mg - [employer] - lot #[id number] , expires oct 2017 Chronic Pain Syndrome [...] or starts streaking up the foot. . Fatigue and Anemia - recommended stat [...] Ambrocio's associate. Continue with steroids, immunosuppression. . Tick Bite - pt given script [...] hands/fingers. We will contact [employer] in [place] for paperwork regarding the scooter. . Hypertension [...] keeping patient stabilized during the removal process. take lasix daily x 10 days then [...] - continue with vitamin d supplementation. . Ecchymosis/hematoma - improving - discussed natural progression of hematomas - watchful waiting. . Hemarthrosis -right shoulder-only able to drain 5ml of bloody drainage-unable to give oral steroids due to recent GI bleed-will give kenalog injection today in the office-discussed getting OSMO patch . Bronchitis - acute case of bronchitis identified. Pt has been given antibiotics, breathing treatments as appropriate, and pt has been instructed to call if symptoms are not improved, or if symptoms acutely worsen. next mammogram will be due in Oct. [...] to continue with use of compression sleeves. [id number] sep 2018 bristol 2ml kenalog . Edema/Lymphedema [...] directed, and understands the consequences of over-medication. Alkvu-[id number] with lasix/metolazone -if swelling/weight increase, okay to [...] office. two old goats muscle rub from [employer] farm [facility] home. . Chronic Pain Syndrome - pt has chronic pain - has been maintained on current medications, has not sought out other medications, only uses PRN pain medications as directed, and understands the consequences of over-medication. Muscle spasms - recommended muscle rub. . Bronchitis - acute case of bronchitis identified. Pt has been given antibiotics, breathing treatments as appropriate, and pt has been instructed to call if symptoms are not improved, or if symptoms acutely worsen. ADDENDUM: Patient has COPD and would benefit from nebulizer treatments with albuterol to help with cough, wheezing and shortness of breath -will send rx to [facility] stop the simvastatin - due to muscle [...]
[2018-06-03] MEDS ORDERED: GOLYTELY POWDER 4000 ML BTL PO NR (17:00)
--- OUTSIDE RECORDS SUMMARY | 2018-06-03 17:02 | XMS REPORT | CCD ---
Author Author [facility] Organization [facility] Address [address] [place] [address] Phone Care Team Providers Care Securities Supervisor Name Role Phone PP Unavailable CCM Unavailable Summary Purpose Interface Exchange Insurance Providers Payer name Policy type / Coverage type Covered alliance party ID Effective Begin Date Effective End Date [place] [employer] Medicare Part B [id number] 2017 Unknown AETNA Medicare Part B [id number] Unknown Family history Father Diagnosis Age At [...] Unknown Retired 07/12/[address]: 7089467 Quit over 10 years ago 1967 07/12/2014 [...] Fill Instructions potassium chloride ER 10 mEq tablet,extended release(part/ cryst) RxNorm: 2704472 2 Tablet(s) PO TID 03/30/2018 07/27/2018 Active oxycodone 30 mg tablet RxNorm: 0293114 1/2 Tablet(s) PO Q6 05/15/2018 Active fentanyl 25 mcg/hr transdermal patch RxNorm: 254389 1 Patch TD Q72H use with 100mcg patch for a total of 125mcg daily 03/17/2018 04/15/2018 Active Lasix 40 mg tablet RxNorm: 545772 Tablet(s) PO TAKE 1 TABLET BY MOUTH TWICE DAILY 03/04/2018 No Stop Date Active fentanyl 100 mcg/hr transdermal patch RxNorm: 230351 1 Patch TD Q72H use with 25mcg/hr patch 03/03/2018 04/01/2018 Active potassium chloride ER 10 mEq capsule,extended release RxNorm: 100604 2 Capsule(s) PO TID 03/03/2018 03/29/2018 Inactive albuterol sulfate 2.5 mg/3 mL (0.083 %) solution for nebulization RxNorm: 537641 3 Milliliter(s) INH Q4 PRN 02/18/2018 No Stop Date Active cefdinir 300 mg capsule RxNorm: 114058 1 Capsule(s) PO BID 02/24/2018 Inactive cefdinir 300 mg capsule RxNorm: 518119 1 Capsule(s) PO BID 02/17/2018 Inactive Flonase Allergy Relief 50 mcg/actuation nasal spray, suspension RxNorm: 1558680 2 [place] NASAL daily 02/12/20182017 Inactive Zithromax Z-Humberto 250 mg tablet RxNorm: 297373 1 Tablet(s) PO UD 02/12/2018 02/16/2018 Inactive Lomotil 2.5 mg-0.025 mg tablet RxNorm: 0706662 1 Tablet(s) PO BID PRN 02/09/2018 No Stop Date Active fentanyl 25 mcg/hr transdermal patch RxNorm: 731349 1 Patch TD Q72H use with 100mcg patch for a total of 125mcg daily 02/09/2018 03/10/2018 Inactive oxycodone 30 mg tablet RxNorm: 3870477 1/2 Tablet(s) PO Q6 03/14/2018 Inactive metolazone 10 mg tablet RxNorm: 287488 1 Tablet(s) PO QAM as needed uncontrolled edema 01/14/2018 03/14/2018 Inactive fentanyl 100 mcg/hr transdermal patch RxNorm: 413662 1 Patch TD Q72H use with 25mcg/hr patch 01/14/2018 02/12/2018 Inactive fentanyl 25 mcg/hr transdermal patch RxNorm: 473256 1 Patch TD Q72H use with 100mcg patch for a total of 125mcg daily 01/14/2018 02/08/2018 Inactive metolazone 10 mg tablet RxNorm: 026509 1 Tablet(s) PO every other day as needed uncontrolled edema 01/07/2018 01/13/2018 Inactive metolazone 10 mg tablet RxNorm: 961655 1 Tablet(s) PO every other day as needed uncontrolled edema 01/07/2018 01/06/2018 Inactive Cipro 500 mg tablet RxNorm: 001325 1 Tablet(s) PO BID 201701/05/2018 Inactive Cipro 500 mg tablet RxNorm: 904860 1 Tablet(s) PO BID 201701/15/2018 Inactive Cardizem CD 360 mg capsule,extended release RxNorm: 795559 1 Capsule(s) PO daily 01/05/2018 05/04/2018 Active potassium chloride ER 10 mEq tablet,extended release(part/ cryst) RxNorm: 8358167 2 Capsule(s) PO TID when taking lasix 01/05/2018 05/04/2018 Active potassium chloride ER 10 mEq capsule,extended release RxNorm: 115639 Capsule(s) TAKE 1 CAPSULE BY MOUTH TWICE DAILY WHEN TAKING LASIX (FUROSEMIDE) 11/27/2017 03/02/2018 Inactive potassium chloride ER 10 mEq capsule,extended release RxNorm: 833065 Capsule(s) TAKE 1 CAPSULE BY MOUTH TWICE DAILY WHEN TAKING LASIX (FUROSEMIDE) 11/27/2017 11/26/2017 Inactive fentanyl 25 mcg/hr transdermal patch RxNorm: 116350 1 Patch TD Q72H use with 100mcg patch for a total of 125mcg daily 11/27/2017 12/26/2017 Inactive bumetanide 0.5 mg tablet RxNorm: 551906 1 Tablet(s) PO daily 12/23/2017 Inactive in the afternoon x 3 days then as needed per Dr Silva fentanyl 100 mcg/hr transdermal patch RxNorm: 479683 1 Patch TD Q72H use with 25mcg/hr patch 11/27/2017 12/26/2017 Inactive oxycodone 30 mg tablet RxNorm: 9631920 1/2 Tablet(s) PO Q6 12/27/2017 Inactive fentanyl 100 mcg/hr transdermal patch RxNorm: 888444 1 Patch TD Q72H use with 25mcg/hr patch 10/29/2017 11/26/2017 Inactive Lasix 20 mg tablet RxNorm: 412573 TAKE 1 TABLET BY MOUTH TWICE DAILY 10/29/2017 03/03/2018 Inactive fentanyl 25 mcg/hr transdermal patch RxNorm: 105016 1 Patch TD Q72H use with 100mcg patch for a total of 125mcg daily 10/29/2017 11/26/2017 Inactive pantoprazole 40 mg tablet,delayed release RxNorm: 932476 Tablet(s) Take 1 tablet by mouth daily 10/21/2017 04/18/2018 Active - Ref: [id number] potassium chloride ER 10 mEq capsule,extended release RxNorm: 678440 TAKE 1 CAPSULE BY MOUTH TWICE DAILY WHEN TAKING LASIX (FUROSEMIDE) 10/09/2017 11/26/2017 Inactive fentanyl 25 mcg/hr transdermal patch RxNorm: 932918 1 Patch TD Q72H use with 100mcg patch for a total of 125mcg daily 10/01/2017 10/28/2017 Inactive fentanyl 100 mcg/hr transdermal patch RxNorm: 585346 1 Patch TD Q72H use with 25mcg/hr patch 10/01/2017 10/28/2017 Inactive potassium chloride ER 10 mEq tablet,extended release(part/ cryst) RxNorm: 6523728 1 Capsule(s) PO BID when taking lasix 09/22/2017 01/04/2018 Inactive fentanyl 100 mcg/hr transdermal patch RxNorm: 336651 1 Patch TD Q72H use with 25mcg/hr patch 08/31/2017 09/29/2017 Inactive Kenalog 40 mg/mL suspension for injection RxNorm: 3097499 1 Milliliter(s) Inj 08/31/2017 08/31/2017 Inactive fentanyl 25 mcg/hr transdermal patch RxNorm: 758900 1 Patch TD Q72H use with 100mcg patch for a total of 125mcg daily 08/31/2017 09/29/2017 Inactive oxycodone 30 mg tablet RxNorm: 4448021 1/2 Tablet(s) PO Q6 04/201710/28/2017 Inactive cyanocobalamin (vit B-12) 1,000 mcg/mL injection solution RxNorm: 195535 1 Milliliter(s) Inj monthly 08/21/201708/15 Active please provide her with syringe/needle for injection cyanocobalamin (vit B-12) 1,000 mcg/mL injection solution RxNorm: 848838 1 Milliliter(s) Inj monthly 08/21/201708/20 Inactive please provide her with syringe/needle for injection Kenalog 40 mg/mL suspension for injection RxNorm: 9448797 2 Milliliter(s) Inj 1mL in each shoulder 08/21/2017 08/21/2017 Inactive cyanocobalamin (vit B-12) 1,000 mcg/mL injection solution RxNorm: 134593 1 Milliliter(s) Inj monthly 08/21/201708/20 Inactive please provide her with syringe/needle for injection Kenalog 40 mg/mL suspension for injection RxNorm: 2176490 2 Milliliter(s) Inj UD 08/12/2017 08/12/2017 Inactive fentanyl 25 mcg/hr transdermal patch RxNorm: 952240 1 Patch TD Q72H use with 100mcg patch for a total of 125mcg daily 08/05/2017 08/30/2017 Inactive fentanyl 100 mcg/hr transdermal patch RxNorm: 448211 1 Patch TD Q72H use with 25mcg/hr patch 08/05/2017 08/30/2017 Inactive Kenalog 40 mg/mL suspension for injection RxNorm: 7826426 2 Milliliter(s) Inj 1mL per shoulder 08/05/2017 08/05/2017 Inactive clindamycin HCl 150 mg capsule RxNorm: 361066 1 Capsule(s) PO QID Dr Shultz prescribed 07/23/2017 07/29/2017 Inactive prednisone 5 mg tablet RxNorm: 478776 1 Tablet(s) PO daily 11/201707/03/2018 Active fentanyl 25 mcg/hr transdermal patch RxNorm: 491847 1 Patch TD Q72H use with 100mcg patch for a total of 125mcg daily 07/01/2017 07/30/2017 Inactive Lasix 20 mg tablet RxNorm: 810196 1 Tablet(s) PO BID 201710/28/2017 Inactive fentanyl 100 mcg/hr transdermal patch RxNorm: 204573 1 Patch TD Q72H use with 25mcg/hr patch 07/01/2017 07/30/2017 Inactive potassium chloride ER 10 mEq capsule,extended release RxNorm: 980450 1 Capsule(s) PO BID when taking lasix 07/01/20172017 Inactive oxycodone 30 mg tablet RxNorm: 7450636 1/2 Tablet(s) PO Q6 08/22/2017 Inactive fentanyl 100 mcg/hr transdermal patch RxNorm: 147725 1 Patch TD Q72H use with 25mcg/hr patch 05/07/2017 06/05/2017 Inactive fentanyl 25 mcg/hr transdermal patch RxNorm: 555399 1 Patch TD Q72H use with 100mcg patch for a total of 125mcg daily 05/07/2017 06/05/2017 Inactive fentanyl 100 mcg/hr transdermal patch RxNorm: 384685 1 Patch TD Q72H 04/08/2017 05/06/2017 Inactive fentanyl 25 mcg/hr transdermal patch RxNorm: 010630 1 Patch TD Q72H use with 100mcg patch for a total of 125mcg daily 04/08/2017 05/06/2017 Inactive Kenalog 40 mg/mL suspension for injection RxNorm: 9418197 1.5 Milliliter(s) Inj 04/02/2017 04/02/2017 Inactive fentanyl 100 mcg/hr transdermal patch RxNorm: 045636 1 Patch TD Q72H 03/12/2017 04/07/2017 Inactive fentanyl 25 mcg/hr transdermal patch RxNorm: 440571 1 Patch TD Q72H use with 100mcg patch for a total of 125mcg daily 03/12/2017 04/07/2017 Inactive oxycodone 30 mg tablet RxNorm: 0171692 1/2 Tablet(s) PO Q6 09/201704/07/2017 Inactive cyanocobalamin (vit B-12) 1,000 mcg/mL injection syringe RxNorm: 915964 1 Milliliter(s) Inj monthly 02/16/2017 No Stop Date Active please provide with supplys needed for injection fentanyl 100 mcg/hr transdermal patch RxNorm: 777503 1 Patch TD Q72H 02/06/2017 03/07/2017 Inactive Myrbetriq 50 mg tablet,extended release RxNorm: 7628501 1 Tablet(s) PO QPM 12/11/2016 07/22/2017 Inactive oxycodone 30 mg tablet RxNorm: 2145795 1/2 Tablet(s) PO Q6 10/201601/06/2017 Inactive naproxen 500 mg tablet RxNorm: 709782 1 Tablet(s) PO BID Take 1 tablet by mouth two times daily as needed 12/08/201607/08 Inactive - First Attempt Ref: [id number] Myrbetriq 50 mg tablet,extended release RxNorm: 9198363 1 Tablet(s) PO QPM 11/17/2016 12/10/2016 Inactive fentanyl 100 mcg/hr transdermal patch RxNorm: 197851 1 Patch TD Q72H 11/12/2016 12/11/2016 Inactive Vesicare 10 mg tablet RxNorm: 706596 1 Tablet(s) PO QPM 201611/18/2016 Inactive oxycodone 10 mg tablet RxNorm: 2033678 1-2 Tablet(s) PO Q4 PRN as needed to take between 30mg dose if needed for extra pain control 201612/07/2016 Inactive fentanyl 75 mcg/hr transdermal patch RxNorm: 742332 1 TD Q72H 10/22/2016 11/10/2016 Inactive oxycodone 10 mg tablet RxNorm: 0529435 1-2 Tablet(s) PO Q4 PRN as needed to take between 30mg dose if needed for extra pain control 201611/04/2016 Inactive Kenalog 40 mg/mL suspension for injection RxNorm: 1823496 1 Milliliter(s) Inj 10/02/2016 10/02/2016 Inactive Kenalog 40 mg/mL suspension for injection RxNorm: 6873178 1 Milliliter(s) Inj 09/12/2016 09/12/2016 Inactive cyclobenzaprine 5 mg tablet RxNorm: 858444 1 Tablet(s) PO Q8 as needed muscle spasms 09/11/2016 07/22/2017 Inactive prednisone 10 mg tablets in a dose pack RxNorm: 701064 1 Tablet(s) PO UD 09/09/2016 06/23/2017 Inactive potassium chloride ER 10 mEq capsule,extended release RxNorm: 875219 1 Capsule(s) PO BID as needed when taking lasix 08/26/2016 06/30/2017 Inactive Lasix 20 mg tablet RxNorm: 627252 1 Tablet(s) PO BID daily x 10 days then as needed edema 08/26/2016 12/23/2016 Inactive naproxen 500 mg tablet RxNorm: 753618 Take 1 tablet by mouth two times daily as needed 08/18/2016 11/15/2016 Inactive - First Attempt Ref: [id number] Lasix 20 mg tablet RxNorm: 363445 1 Tablet(s) PO QAM daily x 10 days then as needed edema 08/18/2016 08/25/2016 Inactive Vesicare 5 mg tablet RxNorm: 452354 1 Tablet(s) PO QPM 201611/04/2016 Inactive potassium chloride ER 10 mEq capsule,extended release RxNorm: 313553 1 Capsule(s) PO QAM as needed when taking lasix 08/18/2016 08/25/2016 Inactive Myrbetriq 25 mg tablet,extended release RxNorm: 6571518 1 Tablet(s) PO QHS 07/14/2016 07/29/2016 Inactive pantoprazole 40 mg tablet,delayed release RxNorm: 124178 Take 1 tablet by mouth daily 06/30/2016 12/26/2016 Inactive - Ref: [id number] Embeda 20 mg-0.8 mg capsule, extend release, oral only RxNorm: 438481 1 Capsule(s ) PO daily 06/04/2016 06/03/2016 Inactive Embeda 20 mg-0.8 mg capsule, extend release, oral only RxNorm: 272011 1 Capsule(s ) PO daily 06/04/2016 07/01/2016 Inactive oxycodone 10 mg tablet RxNorm: 8337111 1 Tablet(s) PO QID as needed to take between 30mg dose if needed for extra pain control 201606/10/2016 Inactive oxycodone 30 mg tablet RxNorm: 8173842 1 Tablet(s) PO Q6 201611/04/2016 Inactive cyanocobalamin (vit B-12) 1,000 mcg/mL injection solution RxNorm: 207363 1 Milliliter(s) Inj monthly 02/22/201602/15 Inactive she also needs syringes/ needles for this solution QS oxycodone 30 mg tablet RxNorm: 2585957 1 Tablet(s) PO Q6 201503/19/2016 Inactive oxycodone 10 mg tablet RxNorm: 8318421 1 Tablet(s) PO QID as needed to take between 30mg dose if needed for extra pain control 201503/19/2016 Inactive oxycodone 10 mg tablet RxNorm: 1326670 1 Tablet(s) PO QID as needed to take between 30mg dose if needed for extra pain control 201502/18/2016 Inactive oxycodone 30 mg tablet RxNorm: 0618639 1 Tablet(s) PO Q6 201502/18/2016 Inactive pantoprazole 40 mg tablet,delayed release RxNorm: 809989 Take 1 tablet by mouth daily 01/22/2016 06/29/2016 Inactive - First Attempt Ref: [id number] oxycodone 30 mg tablet RxNorm: 4698329 1 Tablet(s) PO Q6 201501/28/2016 Inactive oxycodone 10 mg tablet RxNorm: 9553169 1 Tablet(s) PO QID as needed take between 20mg dose if needed for extra pain control 11/07/2015 12/06/2015 Inactive oxycodone 20 mg tablet RxNorm: 8553239 1 Tablet(s) PO Q6 as needed 11/07/2015 12/31/2015 Inactive doxycycline hyclate 100 mg tablet RxNorm: 917709 1 Tablet(s) PO BID 11/01/2015 11/10/2015 Inactive potassium chloride ER 10 mEq capsule,extended release RxNorm: 611342 1 Capsule(s) PO TIW as needed when taking lasix 09/04/2015 08/17/2016 Inactive Voltaren 1 % topical gel RxNorm: 726644 2 Gram(s) TOP QID 08/2909/03/2015 Inactive pa approved Voltaren 1 % topical gel RxNorm: 077956 2 Gram(s) TOP QID 08/0808/29/2015 Inactive naproxen 500 mg tablet RxNorm: 712432 1 Tablet(s) PO BID 201508/17/2016 Inactive naproxen 500 mg tablet RxNorm: 452221 1 Tablet(s) PO BID 201508/08/2015 Inactive doxycycline hyclate 100 mg tablet RxNorm: 037001 1 Tablet(s) PO BID do not take calcium/vitamin d while on antibiotic 07/18/2015 07/31/2015 Inactive Vitamin D2 50,000 unit capsule RxNorm: 965254 1 Capsule(s) PO QW 07/02/2015 11/18/2015 Inactive Premarin 0.3 mg tablet RxNorm: 181451 1 Tablet(s) PO daily 12/201505/09/2015 Inactive Premarin 0.3 mg tablet RxNorm: 940684 1 Tablet(s) PO daily 12/201503/17/2016 Inactive simvastatin 40 mg tablet RxNorm: 661851 1 Tablet(s) PO daily 03/17/2016 Inactive spironolactone 25 mg tablet RxNorm: 861714 TAKE ONE TABLET BY MOUTH DAILY 05/07/2015 05/27/2016 Inactive potassium chloride ER 10 mEq capsule,extended release RxNorm: 029596 1 Capsule(s) PO TIW as needed when taking lasix 04/17/2015 09/03/2015 Inactive alendronate 70 mg tablet RxNorm: 945264 1 Tablet(s) PO weekly QW 04/17/2015 07/01/2015 Inactive Vitamin D2 50,000 unit capsule RxNorm: 155716 1 Capsule(s) PO QW 03/30/2015 06/27/2015 Inactive Vitamin D2 50,000 unit capsule RxNorm: 507709 1 Capsule(s) PO QW 03/21/2015 03/29/2015 Inactive cyanocobalamin (vit B-12) 1,000 mcg/mL injection solution RxNorm: 484634 1 Milliliter(s) Inj monthly 03/19/201502/20 Inactive cyanocobalamin (vit B-12) 1,000 mcg/mL injection solution RxNorm: 970801 1 Milliliter(s) Inj monthly 03/16/201503/18 Inactive cyanocobalamin (vit B-12) 1,000 mcg/mL injection solution RxNorm: 736231 1 Milliliter(s) Inj monthly 03/16/201503/15 Inactive pantoprazole 40 mg tablet,delayed release RxNorm: 522180 1 Tablet(s) PO daily 03/05/2015 01/21/2016 Inactive Lasix 20 mg tablet RxNorm: 192233 1 Tablet(s) PO TIW as needed edema 02/08/2015 02/02/2016 Inactive oxycodone 10 mg tablet RxNorm: 2923087 1 Tablet(s) PO QID as needed take between 20mg dose if needed for extra pain control 11/09/2014 12/08/2014 Inactive oxycodone 20 mg tablet RxNorm: 1621934 1 Tablet(s) PO Q6 as needed 10/25/2014 11/06/2015 Inactive doxycycline hyclate 100 mg tablet RxNorm: 635616 1 Tablet(s) PO BID 10/23/2014 11/19/2014 Inactive Cipro 500 mg tablet RxNorm: 751563 1 Tablet(s) PO BID 201410/16/2014 Inactive Cipro 500 mg tablet RxNorm: 810658 1 Tablet(s) PO BID 201410/09/2014 Inactive oxycodone 20 mg tablet RxNorm: 4186888 1 Tablet(s) PO Q6 as needed 09/25/2014 10/24/2014 Inactive Lasix 20 mg tablet RxNorm: 602043 1 Tablet(s) PO TIW as needed edema 09/14/2014 01/11/2015 Inactive potassium chloride ER 10 mEq capsule,extended release RxNorm: 852154 1 Capsule(s) PO TIW as needed when taking lasix 09/14/2014 01/11/2015 Inactive doxycycline hyclate 100 mg tablet RxNorm: 029690 1 Tablet(s) PO BID 09/05/2014 09/14/2014 Inactive doxycycline hyclate 100 mg tablet RxNorm: 195522 1 Tablet(s) PO BID 09/05/2014 09/04/2014 Inactive oxycodone 20 mg tablet RxNorm: 3718922 1 Tablet(s) PO Q6 as needed 08/29/2014 09/24/2014 Inactive spironolactone 25 mg tablet RxNorm: 688047 1 Tablet(s) PO daily 08/11/2014 03/08/2015 Inactive oxycodone 20 mg tablet RxNorm: 3896362 1 Tablet(s) PO Q6 as needed 08/02/2014 08/28/2014 Inactive Vitamin D3 2,000 unit tablet RxNorm: 493612 1 Tablet(s) PO daily 07/14/2014 No Stop Date Active Vitamin D2 50,000 unit capsule RxNorm: 979303 1 Capsule(s) PO QW 07/14/2014 10/11/2014 Inactive Vitamin D2 50,000 unit capsule RxNorm: 008429 1 Capsule(s) PO QW 07/14/2014 07/13/2014 Inactive Prolia 60 mg/mL subcutaneous syringe RxNorm: 020785 Milliliter(s) SQ EVERY 6 MONTHS No Start Date Active Carafate 1 gram tablet RxNorm: 941484 1 Tablet(s) PO BID No Start Date Active Miralax oral RxNorm: 549910 oral No Start Date Active Stool Softener oral RxNorm: 33474 oral No Start Date Active Calcium + Vitamin D oral RxNorm: 4018 oral No Start Date Active naproxen 500 mg tablet RxNorm: 542358 1 Tablet(s) PO BID No Start Date 08/05/2015 Inactive albuterol sulfate 2.5 mg/3 mL (0.083 %) solution for nebulization RxNorm: 728824 3 Milliliter(s) INH Q4 PRN No Start Date 02/17/2018 Inactive oxycodone 20 mg tablet RxNorm: 1477745 1 Tablet(s) PO Q6 as needed No Start Date 08/01/2014 Inactive aspirin 81 mg tablet RxNorm: 200668 1 Tablet(s) PO daily No Start Date 07/22/2017 Inactive simvastatin 40 mg tablet RxNorm: 308173 1 Tablet(s) PO daily No Start Date 05/09/2015 Inactive cyanocobalamin (vit B-12) 1,000 mcg/mL injection syringe RxNorm: 623735 1 Inj monthly No Start Date 02/15/2017 Inactive Reglan 10 mg tablet RxNorm: 616817 1 Tablet(s) PO as needed No Start Date 07/29/2016 Inactive alendronate 70 mg tablet RxNorm: 543004 1 Tablet(s) PO weekly No Start Date 04/16/2015 Inactive Protonix 40 mg tablet,delayed release RxNorm: 616598 1 Tablet(s) PO daily No Start Date 03/04/2015 Inactive cyclobenzaprine 5 mg tablet RxNorm: 304243 1 Tablet(s) PO Q8 as needed muscle spasms No Start Date 09/10/2016 Inactive Vitamin D3 1,000 unit capsule RxNorm: 956497 1 Capsule(s) PO daily No Start Date 07/13/2014 Inactive Cardizem CD 360 mg capsule,extended release RxNorm: 717263 1 Capsule(s) PO daily No Start Date 01/04/2018 Inactive prednisone 10 mg tablets in a dose pack RxNorm: 712121 1 Tablet(s) PO UD No Start Date 09/08/2016 Inactive Medication Administered Medication Codes Instructions Start Date Status Kenalog 40 mg/mL suspension for injection RxNorm: 5919250 1Milliliter 08/31/2017 No longer Active Kenalog 40 mg/mL suspension for injection RxNorm: 5421239 2Milliliter 08/21/2017 No longer Active Kenalog 40 mg/mL suspension for injection RxNorm: 8326206 2MilliliterUD 08/12/2017 No longer Active Kenalog 40 mg/mL suspension for injection RxNorm: 3630367 2Milliliter 08/05/2017 No longer Active Kenalog 40 mg/mL suspension for injection RxNorm: 9514986 1.5Milliliter 04/02/2017 No longer Active Kenalog 40 mg/mL suspension for injection RxNorm: 7659432 1Milliliter 10/02/2016 No longer Active Kenalog 40 mg/mL suspension for injection RxNorm: 0203800 1Milliliter 09/12/2016 No longer Active Immunizations Vaccine [...] Item Item Code Result Date Comp Metabolic Fzj520 NA 134 mEq/L 03/03/2018 Comp Metabolic Yld623 K 3.3 mEq/L 03/03/2018 Comp Metabolic Ipl351 CL 90 mEq/L 03/03/2018 Comp Metabolic Gvc913 CO2 33.0 mEq/L 03/03/2018 Comp Metabolic Lmf259 ANION GAP 14 03/03/2018 Comp Metabolic Boe691 GLUCOSE 146 mg/dL 03/03/2018 Comp Metabolic Drf700 Creat 1.7 mg/dL 03/03/2018 Comp Metabolic Bhc540 eGFR 31 ml/min/1.73m2 03/03/2018 Comp Metabolic Bgl601 BUN 74 mg/dL 03/03/2018 Comp Metabolic Hdr134 B/C Ratio 43.8 Ratio 03/03/2018 Comp Metabolic Aan967 CALCIUM 8.6 mg/dL 03/03/2018 Comp Metabolic Zcj183 ALK PHOS 70 U/L 03/03/2018 Comp Metabolic Cas085 AST(SGOT) 14 U/L 03/03/2018 Comp Metabolic Uxc969 ALT(SGPT) 9 U/L 03/03/2018 Comp Metabolic Pul417 BILI T 0.6 mg/dL 03/03/2018 Comp Metabolic Cer068 ALBUMIN 3.8 g/dL 03/03/2018 Comp Metabolic Tgo828 TPRO 6.7 g/dL 03/03/2018 Comp Metabolic Eye754 GLOB 2.9 g/dL 03/03/2018 Comp Metabolic Ujf672 A/G Ratio 1.3 Ratio 03/03/2018 Comp Metabolic Wdv221 Osmo 293 mOsmo 03/03/2018 Cbc With Differential [...] 29.9 pg 03/03/2018 Cbc With Differential Ord2 Webster% 11.1 % 03/03/2018 Cbc With Differential Ord2 [...] 1.38 K/ul 03/03/2018 Cbc With Differential Ord2 Webster ABS# 0.9 K/ul 03/03/2018 Cbc With Differential Ord2 Eos ABS# 0.0 K/ul 03/03/2018 Cbc With Differential Ord2 Baso ABS# 0.1 K/ul 03/03/2018 Tibc Ord40 Iron 75 ug/dl 10/22/2017 Tibc Ord40 UIBC 270 ug/dL 10/22/2017 Tibc Ord40 TIBC 345 ug/dL 10/22/2017 Tibc Ord40 Fe-%Sat 21.7 % 10/22/2017 Prealbumin 848499 PREALBUMIN 33 mg/dL 10/21/2017 Comp Metabolic Qbl612 NA 134 mEq/L 10/20/2017 Comp Metabolic Qug958 K 3.7 mEq/L 10/20/2017 Comp Metabolic Kdp864 CL 93 mEq/L 10/20/2017 Comp Metabolic Jlw051 CO2 29.0 mEq/L 10/20/2017 Comp Metabolic Kpy982 ANION GAP 16 10/20/2017 Comp Metabolic Vvn727 GLUCOSE 115 mg/dL 10/20/2017 Comp Metabolic Pyi991 Creat 0.8 mg/dL 10/20/2017 Comp Metabolic Wpi202 eGFR 73 ml/min/1.73m2 10/20/2017 Comp Metabolic Sqw875 BUN 46 mg/dL 10/20/2017 Comp Metabolic Yss886 B/C Ratio 57.5 Ratio 10/20/2017 Comp Metabolic Dxy616 CALCIUM 8.7 mg/dL 10/20/2017 Comp Metabolic Bif140 ALK PHOS 56 U/L 10/20/2017 Comp Metabolic Svw023 AST(SGOT) 19 U/L 10/20/2017 Comp Metabolic Tnb763 ALT(SGPT) 23 U/L 10/20/2017 Comp Metabolic Qnb704 BILI T 0.6 mg/dL 10/20/2017 Comp Metabolic Owp298 ALBUMIN 4.0 g/dL 10/20/2017 Comp Metabolic Kxy220 TPRO 6.6 g/dL 10/20/2017 Comp Metabolic Qat669 GLOB 2.7 g/dL 10/20/2017 Comp Metabolic Fxw977 A/G Ratio 1.5 Ratio 10/20/2017 Comp Metabolic Zvi379 Osmo 281 mOsmo 10/20/2017 Tsh Ord6 TSH [...] 35.4 pg 10/20/2017 Cbc With Differential Ord2 Webster% 9.9 % 10/20/2017 Cbc With Differential Ord2 [...] 1.15 K/ul 10/20/2017 Cbc With Differential Ord2 Webster ABS# 0.6 K/ul 10/20/2017 Cbc With Differential Ord2 Eos ABS# 0.0 K/ul 10/20/2017 Cbc With Differential Ord2 Baso ABS# 0.0 K/ul 10/20/2017 Iron Ord72 Iron 75 ug/dl 10/20/2017 Romie Reflex Profile [id number] ROMIE (BRYANNA) SCREEN NONE DETECTED 01/12/2017 Comp Metabolic Iip394 NA 129 mEq/L 01/08/2017 Comp Metabolic Gto273 K 3.9 mEq/L 01/08/2017 Comp Metabolic Vai915 CL 94 mEq/L 01/08/2017 Comp Metabolic Ngc061 CO2 31.0 mEq/L 01/08/2017 Comp Metabolic Kht553 ANION GAP 8 01/08/2017 Comp Metabolic Hgn825 GLUCOSE 103 mg/dL 01/08/2017 Comp Metabolic Epx790 Creat 0.9 mg/dL 01/08/2017 Comp Metabolic Ynf172 eGFR 61 ml/min/1.73m2 01/08/2017 Comp Metabolic Qtt893 BUN 29 mg/dL 01/08/2017 Comp Metabolic Qbu147 B/C Ratio 30.9 Ratio 01/08/2017 Comp Metabolic Uvo429 CALCIUM 8.5 mg/dL 01/08/2017 Comp Metabolic Uqk773 ALK PHOS 58 U/L 01/08/2017 Comp Metabolic Yqs907 AST(SGOT) 17 U/L 01/08/2017 Comp Metabolic Fkw433 ALT(SGPT) 10 U/L 01/08/2017 Comp Metabolic Ogm437 BILI T 0.4 mg/dL 01/08/2017 Comp Metabolic Zkq024 ALBUMIN 3.0 g/dL 01/08/2017 Comp Metabolic Euy713 TPRO 5.5 g/dL 01/08/2017 Comp Metabolic Rhq257 GLOB 2.5 g/dL 01/08/2017 Comp Metabolic Qhc327 A/G Ratio 1.2 Ratio 01/08/2017 Comp Metabolic Lzi795 Osmo 265 mOsmo 01/08/2017 Cbc With Differential [...] 23.3 % 01/08/2017 Cbc With Differential Ord2 Webster% 12.2 % 01/08/2017 Cbc With Differential Ord2 [...] 1.62 K/ul 01/08/2017 Cbc With Differential Ord2 [place] ABS# 0.9 K/ul 01/08/2017 Cbc With Differential [...] 100.3 fl 11/10/2016 Cbc With Differential Ord2 Webster% 9.1 % 11/10/2016 Cbc With Differential Ord2 [...] 0.78 K/ul 11/10/2016 Cbc With Differential Ord2 [place] ABS# 0.5 K/ul 11/10/2016 Cbc With Differential [...] 30.3 pg 10/07/2016 Cbc With Differential Ord2 Webster% 11.8 % 10/07/2016 Cbc With Differential Ord2 [...] 1.54 K/ul 10/07/2016 Cbc With Differential Ord2 [place] ABS# 1.0 K/ul 10/07/2016 Cbc With Differential Ord2 Eos ABS# 0.1 K/ul 10/07/2016 Cbc With Differential Ord2 Baso ABS# 0.0 K/ul 10/07/2016 Comp Metabolic Cgx335 NA 129 mEq/L 08/26/2016 Comp Metabolic Sgi255 K 3.9 mEq/L 08/26/2016 Comp Metabolic Lqf370 CL 93 mEq/L 08/26/2016 Comp Metabolic Sma548 CO2 30.0 mEq/L 08/26/2016 Comp Metabolic Ydk357 ANION GAP 10 08/26/2016 Comp Metabolic Ldz013 GLUCOSE 87 mg/dL 08/26/2016 Comp Metabolic Wcf691 Creat 0.6 mg/dL 08/26/2016 Comp Metabolic Ith548 eGFR 96 ml/min/1.73m2 08/26/2016 Comp Metabolic Aif874 BUN 17 mg/dL 08/26/2016 Comp Metabolic Bjc504 B/C Ratio 27.0 Ratio 08/26/2016 Comp Metabolic Wkj039 CALCIUM 7.6 mg/dL 08/26/2016 Comp Metabolic Dhm402 ALK PHOS 72 U/L 08/26/2016 Comp Metabolic Dff844 AST(SGOT) 20 U/L 08/26/2016 Comp Metabolic Xxl520 ALT(SGPT) 12 U/L 08/26/2016 Comp Metabolic Biu447 BILI T 0.3 mg/dL 08/26/2016 Comp Metabolic Fcs630 ALBUMIN 2.7 g/dL 08/26/2016 Comp Metabolic Ver766 TPRO 5.3 g/dL 08/26/2016 Comp Metabolic Cef208 GLOB 2.6 g/dL 08/26/2016 Comp Metabolic Jpq177 A/G Ratio 1.1 Ratio 08/26/2016 Comp Metabolic Bnx262 Osmo 260 mOsmo 08/26/2016 Cbc With Differential [...] 28.3 pg 08/26/2016 Cbc With Differential Ord2 Webster% 9.6 % 08/26/2016 Cbc With Differential Ord2 [...] 1.83 K/ul 08/26/2016 Cbc With Differential Ord2 Webster ABS# 1.0 K/ul 08/26/2016 Cbc With Differential Ord2 Eos ABS# 0.1 K/ul 08/26/2016 Cbc With Differential Ord2 Baso ABS# 0.0 K/ul 08/26/2016 Magnesium Ord90 Mag 1.9 mg/dL 08/26/2016 Vitamin D 25 Oh Ysi0623 VITAMIN D, 25 HYDROXY 34.59 ng/mL Tibc Ord40 Iron 13 ug/dl 08/26/2016 Tibc Ord40 UIBC 283 ug/dL 08/26/2016 Tibc Ord40 TIBC 296 ug/dL 08/26/2016 Tibc Ord40 Fe-%Sat 4.4 % 08/26/2016 Ferritin Ord22 FERRITIN 28.8 ng/mL 08/26/2016 Sed Rate Ord21 ESR 20 mm/hr 11/19/2015 Comp Metabolic Dtf536 NA 131 mEq/L 08/22/2015 Comp Metabolic Uxl026 K 4.2 mEq/L 08/22/2015 Comp Metabolic Gfy395 CL 98 mEq/L 08/22/2015 Comp Metabolic Oqt024 CO2 27.0 mEq/L 08/22/2015 Comp Metabolic Uux497 ANION GAP 10 08/22/2015 Comp Metabolic Chr853 GLUCOSE 80 mg/dL 08/22/2015 Comp Metabolic Kil745 Creat 0.5 mg/dL 08/22/2015 Comp Metabolic Yfd657 eGFR 120 ml/min/1.73m2 08/22/2015 Comp Metabolic Cvp651 BUN 13 mg/dL 08/22/2015 Comp Metabolic Eea721 B/C Ratio 25.0 Ratio 08/22/2015 Comp Metabolic Gmd927 CALCIUM 8.2 mg/dL 08/22/2015 Comp Metabolic Kjf750 ALK PHOS 49 U/L 08/22/2015 Comp Metabolic Nbc105 AST(SGOT) 18 U/L 08/22/2015 Comp Metabolic Pdo962 ALT(SGPT) 11 U/L 08/22/2015 Comp Metabolic Xrx009 BILI T 0.5 mg/dL 08/22/2015 Comp Metabolic Mxi645 ALBUMIN 3.5 g/dL 08/22/2015 Comp Metabolic Vuz246 TPRO 6.2 g/dL 08/22/2015 Comp Metabolic Azt733 GLOB 2.7 g/dL 08/22/2015 Comp Metabolic Utg262 A/G Ratio 1.3 Ratio 08/22/2015 Comp Metabolic Ezd263 Osmo 262 mOsmo 08/22/2015 Cbc With Differential [...] 32.4 pg 08/22/2015 Cbc With Differential Ord2 Webster% 10.3 % 08/22/2015 Cbc With Differential Ord2 [...] 1.39 K/ul 08/22/2015 Cbc With Differential Ord2 Webster ABS# 0.7 K/ul 08/22/2015 Cbc With Differential Ord2 Eos ABS# 0.1 K/ul 08/22/2015 Cbc With Differential Ord2 Baso ABS# 0.0 K/ul 08/22/2015 Tsh Ord6 hTSH II 2.19 uIU/mL 08/22/2015 Vitamin D 25 Oh Nam5488 VITAMIN D, 25 HYDROXY 55.10 ng/mL Lipid [...] 1.5 Ratio 03/16/2015 Vitamin D 25 Oh Xwa9815 VITAMIN D, 25 HYDROXY 28.94 ng/mL Cbc [...] 28.1 pg 03/16/2015 Cbc With Differential Ord2 Webster% 11.2 % 03/16/2015 Cbc With Differential Ord2 MCHC 31.9 pg 03/16/2015 Cbc With Differential Ord2 Eos% 1.2 % 03/16/2015 Cbc With Differential Ord2 Baso% 0.4 % 03/16/2015 Cbc With Differential Ord2 PLT 346 K/ul 03/16/2015 Cbc With Differential Ord2 RDW 13.2 % 03/16/2015 Cbc With Differential Ord2 Neut ABS# 4.09 K/ul 03/16/2015 Cbc With Differential Ord2 Lymph ABS# 2.37 K/ul 03/16/2015 Cbc With Differential Ord2 Webster ABS# 0.8 K/ul 03/16/2015 Cbc With Differential Ord2 Eos ABS# 0.1 K/ul 03/16/2015 Cbc With Differential Ord2 Baso ABS# 0.0 K/ul 03/16/2015 Cbc With Differential Ord2 New Analyzer Notice Please note new ref ranges starting 03-14-2015 due to implemntation of new five part differential hematolgy analyzer. 03/16/2015 Comp Metabolic Vhu496 NA 131 mEq/L 03/16/2015 Comp Metabolic Hxq127 K 4.1 mEq/L 03/16/2015 Comp Metabolic Ljr699 CL 94 mEq/L 03/16/2015 Comp Metabolic Zrl321 CO2 28.0 mEq/L 03/16/2015 Comp Metabolic Orq134 ANION GAP 13 03/16/2015 Comp Metabolic Xvy887 GLUCOSE 96 mg/dL 03/16/2015 Comp Metabolic Bkf598 Creat 0.7 mg/dL 03/16/2015 Comp Metabolic Fnh133 eGFR 80 ml/min/1.73m2 03/16/2015 Comp Metabolic Wid501 BUN 16 mg/dL 03/16/2015 Comp Metabolic Wtj417 B/C Ratio 21.6 Ratio 03/16/2015 Comp Metabolic Vgg459 CALCIUM 8.9 mg/dL 03/16/2015 Comp Metabolic Kgo810 ALK PHOS 44 U/L 03/16/2015 Comp Metabolic Jog414 AST(SGOT) 22 U/L 03/16/2015 Comp Metabolic Gfu655 ALT(SGPT) 14 U/L 03/16/2015 Comp Metabolic Wuv996 BILI T 0.5 mg/dL 03/16/2015 Comp Metabolic Dir354 ALBUMIN 3.4 g/dL 03/16/2015 Comp Metabolic Dag205 TPRO 6.0 g/dL 03/16/2015 Comp Metabolic Adz589 GLOB 2.6 g/dL 03/16/2015 Comp Metabolic Pwx023 A/G Ratio 1.3 Ratio 03/16/2015 Comp Metabolic Zma897 Osmo 264 mOsmo 03/16/2015 Comp Metabolic Ssu771 NA 129 mEq/L 11/09/2014 Comp Metabolic Kth035 K 4.2 mEq/L 11/09/2014 Comp Metabolic Kli196 CL 96 mEq/L 11/09/2014 Comp Metabolic Kwh209 CO2 27.0 mEq/L 11/09/2014 Comp Metabolic Cdw175 ANION GAP 10 11/09/2014 Comp Metabolic Qdb020 GLUCOSE 144 mg/dL 11/09/2014 Comp Metabolic Jtv589 Creat 0.8 mg/dL 11/09/2014 Comp Metabolic Kbe403 eGFR 73 ml/min/1.73m2 11/09/2014 Comp Metabolic Ngh603 BUN 22 mg/dL 11/09/2014 Comp Metabolic Svy448 B/C Ratio 27.5 Ratio 11/09/2014 Comp Metabolic Klf448 CALCIUM 8.6 mg/dL 11/09/2014 Comp Metabolic Rnn461 ALK PHOS 55 U/L 11/09/2014 Comp Metabolic Dgg629 AST(SGOT) 27 U/L 11/09/2014 Comp Metabolic Tec378 ALT(SGPT) 18 U/L 11/09/2014 Comp Metabolic Lvc973 BILI T 0.5 mg/dL 11/09/2014 Comp Metabolic Rcz532 ALBUMIN 3.0 g/dL 11/09/2014 Comp Metabolic Rws044 TPRO 5.4 g/dL 11/09/2014 Comp Metabolic Qhh721 GLOB 2.4 g/dL 11/09/2014 Comp Metabolic Bun907 A/G Ratio 1.3 Ratio 11/09/2014 Comp Metabolic Twy566 Osmo 265 mOsmo 11/09/2014 Magnesium Ord90 Mag [...] retractions 2015 None Full Exam - General 1995 Respiratory respiratory effort/rhythm Overall: normal rate 2015 [...] Procedures Procedure Codes Date DRAIN/INJECT JOINT/BURSA CPT-4: 52386 08/21/2017 DRAIN/INJECT JOINT/BURSA CPT-4: 72663 08/12/2017 TRIAMCINOLONE ACET INJ NOS CPT-4: J3301 08/12/2017 DRAIN/INJECT JOINT/BURSA CPT-4: 96736 08/05/2017 TRIAMCINOLONE ACET INJ NOS CPT-4: J3301 08/05/2017 DRAIN/INJECT JOINT/BURSA CPT-4: 62075 07/23/2017 DRAIN/INJECT JOINT/BURSA CPT-4: 57939 07/09/2017 TRIAMCINOLONE ACET INJ NOS CPT-4: J3301 07/09/2017 PRESCRIP TRANSMIT VIA ERX SY CPT-4: G8553 07/09/2017 DRAIN/INJECT JOINT/BURSA CPT-4: 12729 07/01/2017 TRIAMCINOLONE ACET INJ NOS CPT-4: J3301 07/01/2017 PRESCRIP TRANSMIT VIA ERX SY CPT-4: G8553 07/01/2017 DRAIN/INJECT JOINT/BURSA CPT-4: 81282 06/17/2017 DRAIN/INJECT JOINT/BURSA CPT-4: 41899 04/02/2017 TRIAMCINOLONE ACET INJ NOS CPT-4: J3301 04/02/2017 DRAIN/INJECT JOINT/BURSA CPT-4: 16854 02/06/2017 ADMIN INFLUENZA VIRUS VAC CPT-4: G0008 12/08/2016 FLU VACC PRSV FREE INC ANTIG CPT-4: 19013 12/08/2016 PRESCRIP TRANSMIT VIA ERX SY CPT-4: G8553 12/08/2016 PRESCRIP TRANSMIT VIA ERX SY CPT-4: G8553 11/17/2016 TRIAMCINOLONE ACET INJ NOS CPT-4: J3301 10/02/2016 TRIAMCINOLONE ACET INJ NOS CPT-4: J3301 09/12/2016 DRAIN/INJECT JOINT/BURSA CPT-4: 00116 09/08/2016 TRIAMCINOLONE ACET INJ NOS CPT-4: J3301 09/08/2016 PRESCRIP TRANSMIT VIA ERX SY CPT-4: G8553 08/26/2016 PRESCRIP TRANSMIT VIA ERX SY CPT-4: G8553 08/18/2016 ADMIN INFLUENZA VIRUS VAC CPT-4: G0008 11/19/2015 FLU VACC PRSV FREE INC ANTIG Formatting Model/CDA Sections, Assigned to/Luanne Elaine CPT-4: 87170Gvaakdy 11/19/2015 PRESCRIP TRANSMIT VIA ERX SY CPT-4: G8553 09/04/2015 PRESCRIP TRANSMIT VIA ERX SY CPT-4: G8553 2015 PRESCRIP TRANSMIT VIA ERX SY CPT-4: G8553 07/18/2015 PRESCRIP TRANSMIT VIA ERX SY CPT-4: G8553 07/02/2015 REMOVE IMPACTED EAR WAX UNI CPT-4: 58698 04/09/2015 PRESCRIP TRANSMIT VIA ERX SY CPT-4: G8553 02/08/2015 ADMIN INFLUENZA VIRUS VAC CPT-4: G0008 01/10/2015 FLU VACC PRSV FREE INC ANTIG Formatting Model/CDA Sections, Assigned to/Chele Luanne CPT-4: 17086Kvogybb 01/10/2015 ADMIN PNEUMOCOCCAL VACCINE Formatting Model/CDA Sections, Assigned to SNOMED CT: 85065448 CPT-4: M8944Pdqmjrf 12/11/2014 PNEUMOCOCCAL VACC [address]: 34852042 CPT-4: 05077 12/11/2014 Vital Signs Date Vital 03/03/2018 Blood [...] Code : 8480-6 BMI: 23.5 Code : 65621-1 Heart Rate 1 : 58 bpm Height: 5'8" SpO2: 96% Weight: 152 lbs 11/30/2017 Blood Pressure 1: 122/70 Code : 8480-6 Heart Rate 1: 105 bpm Height: 5'8" SpO2: 98% Weight: 11/27/2017 Blood Pressure 1: 148/76 Code : 8480-6 Heart Rate 1: 72 bpm Height: 5'8" SpO2: 99% Weight: 11/10/2017 Blood Pressure 1: 130/76 Code : 8480-6 BMI: 27.3 Code : 86566-4 Heart Rate 1 : 98 bpm Height: [...] Code : 8480-6 BMI: 24.7 Code : 00954-9 Heart Rate 1 : 100 bpm Height: 5'8" SpO2: 95% Weight: 160 lbs 08/31/2017 Blood Pressure 1: 128/78 Code : 8480-6 BMI: 23.6 Code : 92736-4 Heart Rate 1 : 102 bpm Height: 5'8" SpO2: 96% Weight: 153 lbs 08/21/2017 Blood Pressure 1: 138/78 Code : 8480-6 Heart Rate 1: 97 bpm SpO2: 95% Weight: 156 lbs 2 oz 08/12/2017 Blood Pressure 1: 138/74 Code : 8480-6 BMI: 25.0 Code : 32295-2 Heart Rate 1 : 94 bpm Height: 5'8" SpO2: 98% Weight: 162 lbs 08/05/2017 Blood Pressure 1: 126/78 Code : 8480-6 BMI: 25.8 Code : 65479-6 Heart Rate 1 : 74 bpm Height: 5'8" SpO2: 96% Weight: 167 lbs 07/23/2017 Blood Pressure 1: 106/64 Code : 8480-6 BMI: 25.3 Code : 59808-1 Heart Rate 1 : 81 bpm Height: 5'8" SpO2: 99% Weight: 163 lbs 14 oz 07/09/2017 Blood Pressure 1: 130/68 Code : 8480-6 Heart Rate 1: 82 bpm Height: 5'8" SpO2: 98% Weight: 07/01/2017 Blood Pressure 1: 124/76 Code : 8480-6 BMI: 26.5 Code : 44587-0 Heart Rate 1 : 99 bpm Height: 5'8" SpO2: 98% Weight: 172 lbs 06/24/2017 Blood Pressure 1: 118/70 Code : 8480-6 Heart Rate 1: 103 bpm Height: 5'8" SpO2: 98% Weight: 06/17/2017 Blood Pressure 1: 110/64 Code : 8480-6 BMI: 25.0 Code : 83909-1 Heart Rate 1 : 73 bpm Height: 5'8" Weight: 162 lbs 06/01/2017 Blood Pressure 1: 158/84 Code : 8480-6 BMI: 24.4 Code : 81646-1 Heart Rate 1 : 94 bpm Height: 5'8" SpO2: 95% Weight: 158 lbs 04/02/2017 Blood Pressure 1: 164/80 Code : 8480-6 BMI: 23.1 Code : 02765-9 Heart Rate 1 : 76 bpm Height: 5'8" SpO2: 94% Weight: 150 lbs 03/12/2017 Blood Pressure 1: 130/74 Code : 8480-6 BMI: 23.0 Code : 38387-6 Heart Rate 1 : 92 bpm Height: 5'8" SpO2: 94% Weight: 149 lbs 02/06/2017 Height: Weight: 01/08/2017 Blood Pressure 1: 136/76 Code : 8480-6 BMI: 21.4 Code : 51694-2 Heart Rate 1 : 85 bpm Height: 5'8" SpO2: 98% Weight: 138 lbs 8 oz 12/08/2016 Blood Pressure 1: 132/66 Code : 8480-6 BMI: 22.2 Code : 34187-2 Heart Rate 1 : 106 bpm Height: 5'8" SpO2: 97% Weight: 144 lbs 11/17/2016 Blood Pressure 1: 146/80 Code : 8480-6 BMI: 22.4 Code : 28460-0 Heart Rate 1 : 100 bpm Height: 5'8" SpO2: 98% Weight: 145 lbs 11/10/2016 Blood Pressure 1: 122/62 Code : 8480-6 BMI: 22.2 Code : 66276-3 Height: 5'8" Weight: 144 lbs 11/05/2016 Blood Pressure 1: 146/80 Code : 8480-6 BMI: 22.2 Code : 02707-7 Heart Rate 1 : 77 bpm Height: 5'8" SpO2: 99% Weight: 144 lbs 10/07/2016 Blood Pressure 1: 132/68 Code : 8480-6 BMI: 22.8 Code : 56722-8 Heart Rate 1 : 90 bpm Height: 5'8" SpO2: 97% Weight: 148 lbs 10/02/2016 Blood Pressure 1: 166/86 Code : 8480-6 BMI: 22.8 Code : 13277-6 Heart Rate 1 : 96 bpm Height: 5'8" SpO2: 96% Weight: 148 lbs 09/12/2016 Blood Pressure 1: 130/86 Code : 8480-6 Height: Weight: 09/08/2016 Blood Pressure 1: 132/74 Code : 8480-6 BMI: 22.4 Code : 37056-3 Heart Rate 1 : 93 bpm Height: 5'8" SpO2: 99% Weight: 145 lbs 08/26/2016 Blood Pressure 1: 132/78 Code : 8480-6 BMI: 23.9 Code : 82144-3 Heart Rate 1 : 80 bpm Height: 5'8" SpO2: 94% Weight: 155 lbs 08/18/2016 Blood Pressure 1: 130/70 Code : 8480-6 BMI: 23.6 Code : 79856-7 Heart Rate 1 : 100 bpm Height: 5'8" SpO2: 94% Weight: 153 lbs 07/30/2016 Blood Pressure 1: 144/84 Code : 8480-6 BMI: 22.4 Code : 66498-7 Heart Rate 1 : 86 bpm Height: 5'8" SpO2: 97% Weight: 145 lbs 07/14/2016 Blood Pressure 1: 122/74 Code : 8480-6 BMI: 22.5 Code : 02172-5 Heart Rate 1 : 87 bpm Height: 5'8" SpO2: 97% Weight: 146 lbs 07/04/2016 Blood Pressure 1: 128/78 Code : 8480-6 BMI: 22.5 Code : 65144-0 Heart Rate 1 : 98 bpm Height: 5'8" Weight: 146 lbs 06/26/2016 Blood Pressure 1: 122/68 Code : 8480-6 BMI: 22.5 Code : 89728-5 Heart Rate 1 : 102 bpm Height: 5'8" SpO2: 98% Weight: 146 lbs 05/28/2016 Blood Pressure 1: 122/68 Code : 8480-6 BMI: 22.4 Code : 89199-8 Heart Rate 1 : 89 bpm Height: 5'8" SpO2: 97% Weight: 145 lbs 03/18/2016 Blood Pressure 1: 132/66 Code : 8480-6 BMI: 22.8 Code : 20111-8 Heart Rate 1 : 96 bpm Height: 5'8" SpO2: 98% Weight: 148 lbs 01/29/2016 Blood Pressure 1: 122/66 Code : 8480-6 BMI: 22.2 Code : 34853-7 Heart Rate 1 : 90 bpm Height: 5'8" SpO2: 99% Weight: 144 lbs 01/01/2016 Blood Pressure 1: 148/82 Code : 8480-6 BMI: 22.5 Code : 44358-9 Heart Rate 1 : 82 bpm Height: 5'8" Weight: 146 lbs 11/19/2015 Blood Pressure 1: 140/74 Code : 8480-6 BMI: 23.7 Code : 88505-7 Heart Rate 1 : 79 bpm Height: 5'8" SpO2: 96% Weight: 153 lbs 8 oz 11/01/2015 Blood Pressure 1: 118/72 Code : 8480-6 Heart Rate 1: 90 bpm Height: 5'8" SpO2: 95% 09/04/2015 Blood Pressure 1: 136/72 Code : 8480-6 BMI: 23.1 Code : 76778-6 Heart Rate 1 : 97 bpm Height: 5'8" SpO2: 98% Weight: 149 lbs 8 oz 2015 Blood Pressure 1: 144/76 Code : 8480-6 BMI: 22.8 Code : 88048-5 Heart Rate 1 : 75 bpm Height: 5'8" SpO2: 97% Weight: 148 lbs 07/18/2015 Blood Pressure 1: 132/60 Code : 8480-6 BMI: 23.1 Code : 31805-7 Heart Rate 1 : 78 bpm Height: 5'8" Weight: 150 lbs 07/02/2015 Blood Pressure 1: 156/86 Code : 8480-6 BMI: 23.0 Code : 45215-9 Heart Rate 1 : 75 bpm Height: 5'8" SpO2: 99% Weight: 149 lbs 05/31/2015 Blood Pressure 1: 136/72 Code : 8480-6 BMI: 22.7 Code : 07281-3 Heart Rate 1 : 85 bpm Height: 5'8" SpO2: 97% Weight: 147 lbs 04/09/2015 Blood Pressure 1: 118/60 Code : 8480-6 BMI: 22.7 Code : 12600-7 Heart Rate 1 : 72 bpm Height: 5'8" SpO2: 95% Weight: 147 lbs 02/08/2015 Blood Pressure 1: 138/76 Code : 8480-6 BMI: 23.1 Code : 38975-2 Heart Rate 1 : 80 bpm Height: 5'8" SpO2: 98% Weight: 150 lbs 12/11/2014 Blood Pressure 1: 120/74 Code : 8480-6 BMI: 22.1 Code : 61961-3 Heart Rate 1 : 92 bpm Height: 5'8" SpO2: 96% Weight: 143 lbs 11/09/2014 Blood Pressure 1: 100/64 Code : 8480-6 BMI: 21.6 Code : 89495-9 Heart Rate 1 : 88 bpm Height: 5'8" Weight: 140 lbs 10/23/2014 Blood Pressure 1: 138/82 Code : 8480-6 BMI: 23.6 Code : 23197-2 Heart Rate 1 : 86 bpm Height: 5'8" Weight: 153 lbs 10/16/2014 Blood Pressure 1: 128/60 Code : 8480-6 BMI: 23.3 Code : 80557-5 Heart Rate 1 : 91 bpm Height: 5'8" SpO2: 99% Weight: 151 lbs 10/09/2014 Blood Pressure 1: 120/60 Code : 8480-6 BMI: 23.0 Code : 83891-2 Heart Rate 1 : 96 bpm Height: 5'8" SpO2: 97% Weight: 149 lbs 09/14/2014 Blood Pressure 1: 132/72 Code : 8480-6 BMI: 22.1 Code : 45000-1 Heart Rate 1 : 84 bpm Height: 5'8" SpO2: 97% Weight: 143 lbs 08/11/2014 Blood Pressure 1: 134/74 Code : 8480-6 BMI: 24.1 Code : 07511-8 Heart Rate 1 : 88 bpm Height: 5'8" Weight: 156 lbs 07/12/2014 Blood Pressure 1: 122/62 Code : 8480-6 BMI: 22.7 Code : 44512-2 Heart Rate 1 : 76 bpm Height: [...] Dr. Blancas in [place] and Neurosurgeon in [place] in the past neck pain Significant Medical Conditions spinal stenosis 07/12/2014 has osteoarthritis Advance Directives No Advance Directive data Encounters Encounter Performer Location Codes Date ([id number]) [id number] EST. PATIENT, LEVEL IV Diagnosis: Essential (primary) hypertension[ICD10: I10] Diagnosis: Hypo-osmolality and hyponatremia[ICD10: E87.1] Diagnosis: Chronic pain syndrome[ICD10: G89.4] [facility] CPT-4: 17867 03/03/2018 ([id number]) 21444 EST. PATIENT, LEVEL III Diagnosis: Cough[ICD10: R05] Diagnosis: Acute bronchitis, unspecified[ICD10: J20.9] Diagnosis: Chronic obstructive pulmonary disease, unspecified[ICD10: J44.9] Ila Silva MD, [facility] CPT-4: 12877 02/12/2018 ([id number]) 27585 EST. PATIENT, LEVEL IV Diagnosis: Chronic pain syndrome[ICD10: G89.4] Diagnosis: Cough[ICD10: R05] Diagnosis: Diarrhea, unspecified[ICD10: R19.7] Diagnosis: Generalized edema[ICD10: R60.1] Ila Silva MD, [facility] CPT-4: 89360 02/09/2018 ([id number]) 48947 EST. PATIENT, LEVEL III Diagnosis: Generalized edema[ICD10: R60.1] Diagnosis: Lymphedema, not elsewhere classified[ICD10: I89.0] Araceli Silva MD, [facility] CPT-4: 56568 01/14/2018 ([id number]) 18913 EST. PATIENT, LEVEL IV Diagnosis: Essential (primary) hypertension[ICD10: I10] Diagnosis: Generalized edema[ICD10: R60.1] Diagnosis: Chronic pain syndrome[ICD10: G89.4] Araceli Silva MD, [facility] CPT-4: 58155 12/24/2017 ([id number]) 73800 EST. PATIENT, LEVEL III Diagnosis: Lymphedema, not elsewhere classified[ICD10: I89.0] Araceli Silva MD, [facility] CPT-4: 39016 11/30/2017 ([id number]) 96445 EST. PATIENT, LEVEL III Diagnosis: Generalized edema[ICD10: R60.1] Ila Silva MD, [facility] CPT-4: 32646 11/27/2017 ([id number]) 30086 EST. PATIENT, LEVEL IV Diagnosis: Localized edema[ICD10: [...] in left shoulder[ICD10: M25.512] Araceli Silva MD, [facility] CPT-4: 61971 11/10/2017 ([id number]) 65685 EST. PATIENT, LEVEL IV Diagnosis: Localized edema[ICD10: [...] in left shoulder[ICD10: M25.512] Araceli Silva MD, [facility] CPT-4: 72528 10/29/2017 ([id number]) 83390 EST. PATIENT, LEVEL IV Diagnosis: Essential (primary) [...] Diagnosis: Localized edema[ICD10: R60.0] Araceli Silva MD, [facility] CPT- 4: 20658 10/20/2017 ([id number]) 32471 EST. 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 PATIENT, LEVEL IV Diagnosis: Primary osteoarthritis, left shoulder[ICD10: M19.012] Diagnosis: Pain in left shoulder[ICD10: M25.512] Diagnosis: Lymphedema, not elsewhere classified[ICD10: I89.0] Diagnosis: Localized edema[ICD10: R60.0] Diagnosis: Chronic atrial fibrillation[ICD10: I48.2] Araceli Silva MD, [facility] CPT-4: 76741 09/15/2017 ([id number]) 59469 EST. PATIENT, LEVEL III Diagnosis: Primary osteoarthritis, left shoulder[ICD10: M19.012] Diagnosis: Pain in left shoulder[ICD10: M25.512] Diagnosis: Hemarthrosis, left shoulder[ICD10: M25.012] Araceli Silva MD, [facility] CPT-4: 13841 08/31/2017 ([id number]) 73406 EST. 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 PATIENT, LEVEL III Diagnosis: Localized edema[ICD10: R60.0] Araceli Silva MD, [facility] CPT- 4: 24795 07/23/2017 ([id number]) 73126 EST. PATIENT, LEVEL III Diagnosis: Rheumatoid arthritis without rheumatoid factor, left shoulder[ICD10: M06.012] Diagnosis: Hemarthrosis, left shoulder[ICD10: M25.012] Araceli Silva MD, [facility] CPT-4: 86897 07/09/2017 ([id number]) 34991 EST. PATIENT, LEVEL III Diagnosis: Chronic pain syndrome[ICD10: G89.4] Diagnosis: Rheumatoid arthritis without rheumatoid factor, left shoulder[ICD10: M06.012] Diagnosis: Hemarthrosis, left shoulder[ICD10: M25.012] Diagnosis: Lymphedema, not elsewhere classified[ICD10: I89.0] Araceli Silva MD, [facility] CPT-4: 20656 07/01/2017 ([id number]) 36460 EST. PATIENT, LEVEL III Diagnosis: Chronic pain syndrome[ICD10: G89.4] Araceli Silva MD, [facility] CPT-4: 47147 06/24/2017 ([id number]) 88739 EST. 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 PATIENT, LEVEL III Diagnosis: Pain in left shoulder[ICD10: M25.512] Diagnosis: Hemarthrosis, right shoulder[ICD10: M25.011] Diagnosis: Hemarthrosis, left shoulder[ICD10: M25.012] Maricel Silva MD, [facility] CPT-4: 93548 06/01/2017 ([id number]) 99844 EST. PATIENT, LEVEL II Diagnosis: Pain in right shoulder[ICD10: M25.511] Diagnosis: Hemarthrosis, right shoulder[ICD10: M25.011] Araceli Silva MD, [facility] CPT-4: 78140 04/02/2017 ([id number]) 80662 EST. 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 PATIENT, LEVEL IV Diagnosis: Encounter for immunization[ICD10: Z23] Diagnosis: Chronic pain syndrome[ICD10: G89.4] Diagnosis: Essential (primary) hypertension[ICD10: I10] Araceli Silva MD, [facility] CPT-4: 01853 12/08/2016 ([id number]) 09102 EST. PATIENT, LEVEL III Diagnosis: Urge incontinence[ICD10: N39.41] Diagnosis: Chronic pain syndrome[ICD10: G89.4] Diagnosis: Lymphedema, not elsewhere classified[ICD10: I89.0] Araceli Silva MD, [facility] CPT-4: 32159 11/17/2016 [id number] EST. 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 PATIENT, LEVEL IV Diagnosis: Essential (primary) hypertension[ICD10: I10] Diagnosis: Other chronic pain[ICD10: G89.29] Diagnosis: Localized edema[ICD10: R60.0] Diagnosis: Urge incontinence[ICD10: N39.41] Araceli Silva MD, [facility] CPT-4: 19472 11/05/2016 ([id number]) 44104 EST. 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 PATIENT, LEVEL III Diagnosis: Hemarthrosis, right shoulder[ICD10: M25.011] Diagnosis: Pain in right shoulder[ICD10: M25.511] Ila Silva MD, [facility] CPT-4: 51610 10/02/2016 [id number] EST. PATIENT, LEVEL II Diagnosis: Low back pain[ICD10: M54.5] Diagnosis: Sacroiliitis, not elsewhere classified[ICD10: M46.1] Ila Silva MD, [facility] CPT-4: 16648 09/12/2016 ([id number]) 62364 EST. PATIENT, LEVEL III Diagnosis: Hemarthrosis, right shoulder[ICD10: M25.011] Diagnosis: Other chronic pain[ICD10: G89.29] Araceli Silva MD, [facility] CPT-4: 49980 09/08/2016 ([id number]) 06693 EST. PATIENT, LEVEL IV Diagnosis: Other iron deficiency anemias[ICD10: D50.8] Diagnosis: Vitamin D deficiency, unspecified[ICD10: E55.9] Diagnosis: Hypomagnesemia[ICD10: E83.42] Araceli Silva MD, [facility] CPT- 4: 75090 08/26/2016 ([id number]) 00191 EST. PATIENT, LEVEL III Diagnosis: Localized edema[ICD10: R60.0] Araceli Silva MD, [facility] CPT- 4: 56256 08/18/2016 ([id number]) 47938 EST. 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 PATIENT, LEVEL IV Diagnosis: Pain in left shoulder[ICD10: M25.512] Diagnosis: Nocturia[ICD10: R35.1] Maricel Silva MD, [facility] CPT-4: 16163 07/14/2016 16196 EST. PATIENT, LEVEL III Diagnosis: Pain in left shoulder[ICD10: M25.512] Maricel Silva MD, [facility] CPT-4: 76244 07/04/2016 ([id number]) 97006 EST. 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 PATIENT, LEVEL II Diagnosis: Insect bite (nonvenomous) of right upper arm, initial encounter[ICD10 : S40.861A] Ila Silva MD, [facility] CPT-4: 83782 11/01/2015 ([id number]) 37585 EST. 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 PATIENT, LEVEL III Diagnosis: Contusion of left upper arm, subsequent encounter[ICD10: S40.022D] Araceli Silva MD [facility] CPT-4: 29644 2015 39824 EST. PATIENT, LEVEL III Diagnosis: Cellulitis of left upper limb[ICD10: L03.114] Maricel Silva MD, [facility] CPT-4: 25033 07/18/2015 ([id number]) 41488 EST. 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 PATIENT, LEVEL IV Diagnosis: Essential (primary) hypertension[ICD10: I10] Diagnosis: Vitamin D deficiency, unspecified[ICD10: E55.9] Diagnosis: Mixed hyperlipidemia[ICD10: E78.2] Diagnosis: Age-related osteoporosis with current pathological fracture, unspecified site, sequela[ICD10: M80.00XS] Araceli Silva MD, [facility] CPT- 4: 70729 02/08/2015 ([id number]) 94761 EST. PATIENT, LEVEL IV Diagnosis: Essential (primary) hypertension[ICD10: I10] Diagnosis: Localized edema[ICD10: R60.0] Diagnosis: Primary osteoarthritis, unspecified site[ICD10: M19.91] Araceli Silva MD [facility] CPT-4: 55875 12/11/2014 ([id number]) 41065 EST. PATIENT, LEVEL III Diagnosis: EDEMA[ICD9: 782.3] Diagnosis: ESSENTIAL HYPERTENSION[ICD9: 401.9] Araceli Silva MD [facility] CPT-4: 59780 11/09/2014 ([id number]) 98213 EST. PATIENT, LEVEL III Diagnosis: Leg pain[ICD9: 729.5] Diagnosis: Ulcer of toe[ICD9: 707.15] Araceli Silva MD [facility] CPT- 4: 14575 10/23/2014 ([id number]) 50504 EST. PATIENT, LEVEL III Diagnosis: Ulcer of toe[ICD9: 707.15] Araceli Silva MD [facility] CPT- 4: 86284 10/16/2014 88876 EST. PATIENT, LEVEL II Diagnosis: Ulcer of toe[ICD9: 707.15] Ila Silva MD [facility] CPT-4: 06847 10/09/2014 ([id number]) 88057 EST. PATIENT, LEVEL III Diagnosis: EDEMA[ICD9: 782.3] Araceli Silva MD [facility] CPT-4: 70554 09/14/2014 ([id number]) 10381 EST. PATIENT, LEVEL IV Diagnosis: EDEMA[ICD9: 782.3] Diagnosis: ESSENTIAL HYPERTENSION[ICD9: 401.9] Araceli Silva MD [facility] CPT-4: 99624 08/11/2014 ([id number]) OFFICE VISIT, NEW - LEVEL 4 Diagnosis: HYPERLIPIDEMIA[ICD9: 272.4] Diagnosis: VITAMIN D DEFICIENCY[ICD9: 268.9] Diagnosis: Osteoporosis[ICD9: 733.00] Diagnosis: Esophageal reflux[ICD9: 530.81] Diagnosis: Chronic pain[ICD9: 338.29] Araceli Silva MD, [facility] CPT- 4: 39188 07/12/2014 Plan of Care Planned Activity Notes [...] breath - will send rx to [facility] 02/12/2018 Appointment: Ila Kennedy WPtel: [phone] [phone] (30 min) Complex 02/12/2018 Patient Education: Patient Medication Summary Completed 02/12/2018 Visit Plan: Chronic Pain Syndrome - pt has chronic pain - has been maintained on current medications, has not sought out other medications , only uses PRN pain medications as directed, and understands the consequences of over-medication. Tdibi-npklcrcfib-vpzyitnw with lasix/metolazone -if swelling /weight increase, okay to increase metolazone to daily as directed Cough- okay for robitussin dm Diarrhea- rx for lomotil written and instructed on use-follow up in 3 weeks, sooner if needed. Call with any concerns. 02/09/2018 Appointment: Ila Kennedy WPtel: [phone] [phone] (30 min) Complex 02/09/2018 Patient Education: Patient Medication Summary Completed 02/09/2018 Appointment: Araceli Silva WPtel: [phone] [facility] [place] (15 min) Moderate 02/04/2018 Visit Plan: [...] over-medication. 01/14/2018 App[facility]ment: [phone] [place] (15 min) Moderate 01/14/2018 Patient [...] oxycodone scheduled. 12/24/2017 Appointment: Araceli Silva WPtel: [facility] [place] (30 min) Complex 12/24/2017 Patient [...] output. 11/30/2017 Appointment: [facility] Silva [facility]Ptel[phone] [facility] [place] (15 min) Moderate 11/30/2017 Patient [...] of over-medication. 11/10/2017 Appointment: Araceli Silva WPtel: [facility] (15 min) Moderate 11/10/2017 Patient Education: [...] hands/fingers. We will contact [facility] in [place] for paperwork regarding the scooter. 10/29/2017 Appointment: [facility]eli Silva [facility]Ptel[phone] [facility] (15 min) Moderate 10/29/2017 Patient Education: [...] this time. 10/20/2017 Appointment: [facility] Silva [facility]Ptel[facility] [phone] [facility] [place] (30 min) Complex 10/20/2017 Patient [...] drained today. 09/29/2017 Appointment: Araceli Silva WPtel: [address] [place], [place] [address] (15 min) Moderate 09/29/2017 Patient Education: Patient [...] Completed 08/21/2017 Appointment: [facility] Silva [facility]Ptel[phone] [facility] [place] (15 min) Moderate 08/20/2017 Visit Plan: Hemarthrosis shoulders - 250mL from left shoulder and 100mL from right shoulder with 1ml kenalog injected into right and left shoulders - Left and right shoulder pain and swelling, swelling into arms and left breast -pt to continue with use of compression sleeves. [id number] sep 2018 bristol 2ml kenalog 08/12/2017 Appointment: Araceli Silva WPtel: [phone] [facility] [place] (15 min) Moderate 08/12/2017 Patient [...] edema. 08/05/2017 Appointment: [facility] WPtel[phone] [facility] [place] (15 min) Moderate 08/05/2017 Patient [...] peripheral edema. 07/23/2017 Appointment: Araceli Silva WPtel: [address] [place] [address] (15 min) Moderate 07/23/2017 Patient Education: Patient [...] monitor symptoms. 07/09/2017 Appointment: Araceli Silva WPtel: [address] [place] [address] (15 min) Moderate 07/09/2017 Patient Education: Patient Medication Summary Completed 07/09/2017 Referral: [facility] WPtel: Referral Initiated 07/08/2017 [...] monitor symptoms. 07/01/2017 Appointment: Araceli Silva WPtel: [address] [place] [address] (15 min) Moderate 07/01/2017 Patient Education: Patient Medication Summary Completed 07/01/2017 Visit Plan: Chronic Pain Syndrome - pt has chronic pain - has been maintained on current medications, has not sought out other medications , only uses PRN pain medications as directed, and understands the consequences of over-medication. 06/24/2017 Appointment: Araceli Silva WPtel: [facility]5 [facility] (15 min) Moderate 06/24/2017 Patient Education: Patient [...] edema. 06/17/2017 Appointment: Araceli Silva WPtel: [facility] (30 min) Complex 06/17/2017 Patient Education: Patient Medication Summary Completed 06/17/2017 Appointment: Araceli Silva WPtel: [facility]5 [facility] (15 min) Moderate 06/08/2017 Care Plan: Referral Order SNOMED-CT : [id number] Pending 06/02/2017 Visit Plan: Left and right [...] peripheral edema. 06/01/2017 Appointment: Maricel Gee WPtel: [facility]1 [facility] [place] (30 min) Complex 06/01/2017 Patient [...] from shoulder 04/02/2017 Appointment: Araceli Silva WPtel: [facility]5 [facility]66[facility] (15 min) Moderate 04/02/2017 Patient Education: Patient [...] stomach upset. 03/12/2017 Appointment: Araceli Silva WPtel: [facility]2 [facility] (15 min) Moderate 03/12/2017 Patient Education: Patient [...] ROMIE. 01/08/2017 Appointment: Araceli Silva WPtel: [facility]5 [facility] (15 min) Moderate 01/08/2017 Patient Education: [...] Remicaide. 12/08/2016 Appointment: Araceli Silva WPtel: [facility]5 [facility] (15 min) Moderate 12/08/2016 Patient Education: [...] for now 11/17/2016 Appointment: Araceli Silva WPtel: [facility] (15 min) Moderate 11/17/2016 Patient Education: Patient [...] over-medication. 11/10/2016 Appointment: [facility]ee [facility]el[phone] ([facility] min) Complex 11/10/2016 Patient Education: Patient [...] immunosuppression. 11/05/2016 Appointment: Araceli Silva WPtel: [facility]5 [facility] (15 min) Moderate 11/05/2016 [...] today. 10/07/2016 Appointment: Araceli Silva WPtel: [phone] [facility] [place] (15 min) Moderate 10/07/2016 Patient Education: Patient Medication Summary Completed 10/07/2016 Care Plan: Referral Order SNOMED-CT : [id number] Pending 10/07/2016 Care Plan: Referral Order SNOMED-CT : [id number] Pending 10/07/2016 Visit Plan: Hemarthrosis -right shoulder-only able to drain 5ml of bloody drainage-unable to give oral steroids due to recent GI bleed -will give kenalog injection today in the office-discussed getting OSMO patch 10/02/2016 Appointment: Ila Kennedy WPtel: [phone] [phone] [place] (30 min) Complex 10/02/2016 Patient Education: Patient Medication Summary Completed 10/02/2016 Appointment: Araceli Silva WPtel: [facility]5 [place] [phone] [place] (15 min) Moderate 09/23/2016 Appointment: Araceli Silva WPtel: [address] [place] [address] (15 min) Moderate 09/17/2016 Visit Plan: Sacroiliitis - back exercises discussed with the patient, pt to continue with anti-inflammatories. Pt is to call if the symptoms do not improve or if they worsen. Kenalog injection today in the office. 09/12/2016 Appointment: Ila Kennedy WPtel: [facility]2 [phone] [place] (15 min) Moderate 09/12/2016 Patient [...] Injection of kenalog 1mL - 40mg - [employer] - lot #[id number] , expires oct 2017 Chronic Pain Syndrome - pt has chronic pain - has been maintained on current medications, has not sought out other medications, only uses PRN pain medications as directed, and understands the consequences of over-medication. 09/08/2016 Appointment: Araceli Silva WPtel: [facility]8 [facility] [place] (15 min) Moderate 09/08/2016 Patient Education: [...] level 08/26/2016 Appointment: Araceli Silva WPtel: [facility]5 [facility] (15 min) Moderate 08/26/2016 Patient Education: [...] Summary Completed 08/18/2016 Appointment: Araceli Silva WPtel: [address] [place], [place] [phone] (15 min) Moderate 08/13/2016 Appointment: Araceli Silva WPtel: [address] [place], [place] [phone] (15 min) Moderate 08/06/2016 Visit Plan: [...] the daytime. 07/30/2016 Appointment: Araceli Silva WPtel: [facility]8 [place] [phone] (15 min) Moderate 07/30/2016 Patient Education: Patient Medication Summary Completed 07/30/2016 Visit Plan: Left shoulder pain - improving - pt is to notify clinic if symptoms do not improve, if they worsen, or with any questions or concerns. Nocturia - will give samples, pt is to notify clinic if symptoms do not improve. 07/14/2016 Appointment: Maricel Gee WPtel: [facility]5 [facility]6[address] (30 min) Complex 07/14/2016 Patient Education: [...] dyspnea. 07/04/2016 Appointment: Maricel Gee WPtel: [phone] [facility] (30 min) Complex 07/04/2016 Patient Education: [...] medication. 06/26/2016 Appointment: [facility]Ptel: [phone] (15 min) Moderate 06/26/2016 Patient Education: Patient [...] understands the consequences of over-medication. 05/28/2016 Appointment: Ricardo Araceli WPtel: [phone] [place] (15 min) Moderate 05/28/2016 Patient Education: Patient Medication Summary Completed 05/28/2016 Patient Education: Hypertension Completed 05/28/2016 Appointment: Ar[facility]eli Silva WPtel: [phone] [facility] [place] (15 min) Moderate 05/12/2016 Appointment: Araceli Silva WPtel: [phone] [facility] [place] (15 min) Moderate 04/15/2016 Appointment: Araceli Silva WPtel: [address] [facility] [place] (30 min) Complex 03/25/2016 Visit [...] premarin. 03/18/2016 Appointment: Araceli Silva WPtel: [phone] [facility] [place] (30 min) Complex 03/18/2016 Patient Education: Patient Medication Summary Completed 03/18/2016 Appointment: Araceli Silva WPtel: [facility] [place] (15 min) Moderate 02/19/2016 Visit Plan: [...] over-medication. 01/29/2016 Appointment: Araceli Silva WPtel: [phone] [facility] (15 min) Moderate 01/29/2016 Patient Education: Patient Medication Summary Completed 01/29/2016 Visit Plan: Discussed MRI of the neck - pt is interested in doing this - however, not prior to changing her medication first to see if this helps her pain 01/01/2016 Appointment: Araceli Silva WPtel: [phone] [facility] [place] (15 min) Moderate 01/01/2016 Patient Education: Patient Medication Summary Completed 01/01/2016 Patient Education: Hypertension Completed 01/01/2016 Appointment: Araceli Silva WPtel: [phone] [phone] (15 min) Moderate 12/03/2015 Visit Plan: [...] nonhealing. 11/01/2015 Appointment: Ila Kennedy WPtel: [phone] [phone] (15 min) Moderate 11/01/2015 Patient Education: Patient Medication Summary Completed 11/01/2015 Visit Plan: Chronic Pain Syndrome - pt has chronic pain - has been maintained on current medications, has not sought out other medications , only uses PRN pain medications as directed, and understands the consequences of over-medication. Muscle spasms - recommended muscle rub. 09/04/2015 Appointment: Araceli Silva WPtel: [phone] (15 min) Moderate 09/04/2015 Patient Education: Patient Medication Summary Completed 09/04/2015 Visit Plan: Ecchymosis/hematoma - improving - discussed natural progression of hematomas - watchful waiting. 2015 Appointment: Araceli Silva WPtel: [facility]8 [phone] (15 min) Moderate 2015 Patient Education: Patient Medication Summary Completed 2015 Visit Plan: Cellulitis - continue with oral antibiotics as previously directed, return to clinic as previously directed, call for acute change in symptoms, worsening redness, warmth, discharge. 07/18/2015 Appointment: Ila Kennedy WPtel: [phone] [place] (30 min) Complex 07/18/2015 Patient Education: [...] center. 07/02/2015 Appointment: Araceli Silva WPtel: [phone] [facility] [place] (15 min) Moderate 07/02/2015 Patient Education: [...] ambulation. 04/09/2015 Appointment: Araceli Silva WPtel: [phone] [facility] (15 min) Moderate 04/09/2015 [...] supplementation. 02/08/2015 Appointment: Araceli Silva WPtel: [phone] (15 min) Moderate 02/08/2015 Patient Education: [...] the evening. 12/11/2014 Appointment: Araceli Silva WPtel: [facility]8 [address] (15 min) Moderate 12/11/2014 Patient Education: Patient [...] - improved. 11/09/2014 Appointment: Araceli Silva WPtel: [address] [place] [address] (15 min) Moderate 11/09/2014 Patient Education: Patient Medication Summary Completed 11/09/2014 Patient Education: Hypertension Completed 11/09/2014 Visit Plan: Leg pain/cellulitis of leg - start on the doxycycline twice daily - take this x 2 weeks, if the symptoms in your leg/ thigh are not completely resolved, there is a refill that is available. start on a probiotic one pill daily ([employer] or [employer]) this will help prevent the development of a bad type of diarrhea that can occur when taking antibiotics. Ulcer of toe - improving. 10/23/2014 Appointment: Araceli Silva WPtel: [facility]8 [address] (15 min) Moderate 10/23/2014 Patient Education: Patient Medication Summary Completed 10/23/2014 Visit Plan: Ulcer - keep lesion covered, antibiotic ointment to be used, monitor - call if redness increases or starts streaking up the foot. 10/16/2014 Appointment: Araceli Silva WPtel: [phone] (15 min) Moderate 10/16/2014 Patient Education: Patient [...] edema. 09/14/2014 Appointment: Araceli Silva WPtel: [phone] Follow up 09/14/2014 Patient Education: Patient [...] over- medication. 07/12/2014 Appointment: Araceli Silva WPtel: [phone] [place] (S) New Patient 07/12/2014 Patient Education: Patient Medication Summary Completed 07/12/2014 Patient Education: Hypertension Completed 07/12/2014 Referral: Dr Virgen Referral Completed Referral: External, Ordering Provider Referral Completed Referral: [facility] WPtel: Referral Initiated Instructions [...] start on a probiotic one pill daily ([employer] or [employer]) this will help prevent the development of a bad type of diarrhea that can occur when taking antibiotics. . Leg pain/cellulitis of leg - start on the doxycycline twice daily - take this x 2 weeks, if the symptoms in your leg/thigh are not completely resolved, there is a refill that is available. start on a probiotic one pill daily ([employer] or [employer]) this will help prevent the development of [...] Injection of kenalog 1mL - 40mg - [employer] - lot #[id number] , expires oct 2017 Chronic Pain Syndrome [...] Ambrocio's associate. Continue with steroids, immunosuppression. . Hypertension - well controlled - continue [...] and 1/2 pill in the evening. . Tick Bite - pt given script [...] the touch, or with any dyspnea. . Left shoulder pain - improving - [...] closely monitor her intake and output. . Chronic neck pain, arthritis, right arm [...] the consequences of over-medication. . Hemarthrosis - pt was prepped and [...] understands the consequences of over-medication. . Chronic Pain Syndrome - pt has [...] Inflammatory Arthritis - continue with Remicaide. . Fatigue and Anemia - recommended stat labs - CBC showed Hgb of 8.3 - iron panel added to blood in labs - will wait on those reports - but will have pt get a blood transfusion tomorrow. Will possibly get pt in for iron transfusion. Edema - increase lasix x 10 days to bid, then use prn swelling. Check magnesium level . Lymphedema of upper and lower extremities [...] to continue with use of compression sleeves. [id number] sep 2018 bristol 2ml kenalog . Edema/Lymphedema [...] hands/fingers. We will contact [facility] in [place] for paperwork regarding the scooter. . Hypertension [...] help to decrease the bladder spasms . Hypertension - well controlled - continue [...] directed, and understands the consequences of over-medication. Vjrme-adgbicguqb-fagjgame with lasix/metolazone -if swelling/weight increase, okay to [...] office. two old goats muscle rub from [employer] and home. . Chronic Pain Syndrome [...] pt through the cancer center/surgery center. . Hemarthrosis shoulders - 120mL from left shoulder and no fluid from right shoulder with 1ml kenalog injected into right and left shoulders - Left and right shoulder pain and swelling, swelling into arms and left breast -pt to continue with use of compression sleeves.
--- OUTSIDE RECORDS SUMMARY | 2018-06-03 17:12 | XMS REPORT | CCD ---
Author Author [facility] Organization [facility] Address [address] [place] [address] Phone Care Team Providers Care Administrative Analyst Name Role Phone PP Unavailable CCM Unavailable Summary Purpose Interface Exchange Insurance Providers Payer name Policy type / Coverage type Covered constitution party ID Effective Begin Date Effective End Date [place] [employer] Medicare Part B [id number] 2017 Unknown AETNA Medicare Part B [id number] Unknown Family history Father Diagnosis Age At [...] Unknown Retired 07/12/[address]: 7422354 Quit over 10 years ago 1967 07/12/2014 [...] Fill Instructions oxycodone 30 mg tablet RxNorm: 8948231 1/2 Tablet(s) PO Q6 05/15/2018 Active fentanyl 25 mcg/hr transdermal patch RxNorm: 397976 1 Patch TD Q72H use with 100mcg patch for a total of 125mcg daily 03/17/2018 04/15/2018 Active Lasix 40 mg tablet RxNorm: 806690 Tablet(s) PO TAKE 1 TABLET BY MOUTH TWICE DAILY 03/04/2018 No Stop Date Active fentanyl 100 mcg/hr transdermal patch RxNorm: 318240 1 Patch TD Q72H use with 25mcg/hr patch 03/03/2018 04/01/2018 Active potassium chloride ER 10 mEq capsule,extended release RxNorm: 079830 2 Capsule(s) PO TID 03/03/2018 06/30/2018 Active albuterol sulfate 2.5 mg/3 mL (0.083 %) solution for nebulization RxNorm: 208453 3 Milliliter(s) INH Q4 PRN 02/18/2018 No Stop Date Active cefdinir 300 mg capsule RxNorm: 612960 1 Capsule(s) PO BID 02/24/2018 Inactive cefdinir 300 mg capsule RxNorm: 349601 1 Capsule(s) PO BID 02/17/2018 Inactive Flonase Allergy Relief 50 mcg/actuation nasal spray, suspension RxNorm: 5316595 2 [place] NASAL daily 02/12/20182017 Inactive Zithromax Z-Humberto 250 mg tablet RxNorm: 575863 1 Tablet(s) PO UD 02/12/2018 02/16/2018 Inactive Lomotil 2.5 mg-0.025 mg tablet RxNorm: 6144776 1 Tablet(s) PO BID PRN 02/09/2018 No Stop Date Active fentanyl 25 mcg/hr transdermal patch RxNorm: 789205 1 Patch TD Q72H use with 100mcg patch for a total of 125mcg daily 02/09/2018 03/10/2018 Inactive oxycodone 30 mg tablet RxNorm: 3955598 1/2 Tablet(s) PO Q6 03/14/2018 Inactive metolazone 10 mg tablet RxNorm: 060395 1 Tablet(s) PO QAM as needed uncontrolled edema 01/14/2018 03/14/2018 Inactive fentanyl 100 mcg/hr transdermal patch RxNorm: 215239 1 Patch TD Q72H use with 25mcg/hr patch 01/14/2018 02/12/2018 Inactive fentanyl 25 mcg/hr transdermal patch RxNorm: 493632 1 Patch TD Q72H use with 100mcg patch for a total of 125mcg daily 01/14/2018 02/08/2018 Inactive metolazone 10 mg tablet RxNorm: 043328 1 Tablet(s) PO every other day as needed uncontrolled edema 01/07/2018 01/13/2018 Inactive metolazone 10 mg tablet RxNorm: 846683 1 Tablet(s) PO every other day as needed uncontrolled edema 01/07/2018 01/06/2018 Inactive Cipro 500 mg tablet RxNorm: 376624 1 Tablet(s) PO BID 201701/05/2018 Inactive Cipro 500 mg tablet RxNorm: 586964 1 Tablet(s) PO BID 201701/15/2018 Inactive Cardizem CD 360 mg capsule,extended release RxNorm: 479878 1 Capsule(s) PO daily 01/05/2018 05/04/2018 Active potassium chloride ER 10 mEq tablet,extended release(part/ cryst) RxNorm: 9733383 2 Capsule(s) PO TID when taking lasix 01/05/2018 05/04/2018 Active potassium chloride ER 10 mEq capsule,extended release RxNorm: 239222 Capsule(s) TAKE 1 CAPSULE BY MOUTH TWICE DAILY WHEN TAKING LASIX (FUROSEMIDE) 11/27/2017 03/02/2018 Inactive potassium chloride ER 10 mEq capsule,extended release RxNorm: 813567 Capsule(s) TAKE 1 CAPSULE BY MOUTH TWICE DAILY WHEN TAKING LASIX (FUROSEMIDE) 11/27/2017 11/26/2017 Inactive fentanyl 25 mcg/hr transdermal patch RxNorm: 433177 1 Patch TD Q72H use with 100mcg patch for a total of 125mcg daily 11/27/2017 12/26/2017 Inactive bumetanide 0.5 mg tablet RxNorm: 831109 1 Tablet(s) PO daily 12/23/2017 Inactive in the afternoon x 3 days then as needed per Dr Silva fentanyl 100 mcg/hr transdermal patch RxNorm: 575300 1 Patch TD Q72H use with 25mcg/hr patch 11/27/2017 12/26/2017 Inactive oxycodone 30 mg tablet RxNorm: 9514938 1/2 Tablet(s) PO Q6 12/27/2017 Inactive fentanyl 100 mcg/hr transdermal patch RxNorm: 070608 1 Patch TD Q72H use with 25mcg/hr patch 10/29/2017 11/26/2017 Inactive Lasix 20 mg tablet RxNorm: 588488 TAKE 1 TABLET BY MOUTH TWICE DAILY 10/29/2017 03/03/2018 Inactive fentanyl 25 mcg/hr transdermal patch RxNorm: 125588 1 Patch TD Q72H use with 100mcg patch for a total of 125mcg daily 10/29/2017 11/26/2017 Inactive pantoprazole 40 mg tablet,delayed release RxNorm: 429950 Tablet(s) Take 1 tablet by mouth daily 10/21/2017 04/18/2018 Active - Ref: [id number] potassium chloride ER 10 mEq capsule,extended release RxNorm: 213901 TAKE 1 CAPSULE BY MOUTH TWICE DAILY WHEN TAKING LASIX (FUROSEMIDE) 10/09/2017 11/26/2017 Inactive fentanyl 25 mcg/hr transdermal patch RxNorm: 077363 1 Patch TD Q72H use with 100mcg patch for a total of 125mcg daily 10/01/2017 10/28/2017 Inactive fentanyl 100 mcg/hr transdermal patch RxNorm: 449396 1 Patch TD Q72H use with 25mcg/hr patch 10/01/2017 10/28/2017 Inactive potassium chloride ER 10 mEq tablet,extended release(part/ cryst) RxNorm: 9169462 1 Capsule(s) PO BID when taking lasix 09/22/2017 01/04/2018 Inactive fentanyl 100 mcg/hr transdermal patch RxNorm: 637067 1 Patch TD Q72H use with 25mcg/hr patch 08/31/2017 09/29/2017 Inactive Kenalog 40 mg/mL suspension for injection RxNorm: 6973875 1 Milliliter(s) Inj 08/31/2017 08/31/2017 Inactive fentanyl 25 mcg/hr transdermal patch RxNorm: 761230 1 Patch TD Q72H use with 100mcg patch for a total of 125mcg daily 08/31/2017 09/29/2017 Inactive oxycodone 30 mg tablet RxNorm: 6632721 1/2 Tablet(s) PO Q6 04/201710/28/2017 Inactive cyanocobalamin (vit B-12) 1,000 mcg/mL injection solution RxNorm: 961012 1 Milliliter(s) Inj monthly 08/21/201708/15 Active please provide her with syringe/needle for injection cyanocobalamin (vit B-12) 1,000 mcg/mL injection solution RxNorm: 609962 1 Milliliter(s) Inj monthly 08/21/201708/20 Inactive please provide her with syringe/needle for injection Kenalog 40 mg/mL suspension for injection RxNorm: 9151564 2 Milliliter(s) Inj 1mL in each shoulder 08/21/2017 08/21/2017 Inactive cyanocobalamin (vit B-12) 1,000 mcg/mL injection solution RxNorm: 537192 1 Milliliter(s) Inj monthly 08/21/201708/20 Inactive please provide her with syringe/needle for injection Kenalog 40 mg/mL suspension for injection RxNorm: 2264379 2 Milliliter(s) Inj UD 08/12/2017 08/12/2017 Inactive fentanyl 25 mcg/hr transdermal patch RxNorm: 338591 1 Patch TD Q72H use with 100mcg patch for a total of 125mcg daily 08/05/2017 08/30/2017 Inactive fentanyl 100 mcg/hr transdermal patch RxNorm: 314539 1 Patch TD Q72H use with 25mcg/hr patch 08/05/2017 08/30/2017 Inactive Kenalog 40 mg/mL suspension for injection RxNorm: 0482438 2 Milliliter(s) Inj 1mL per shoulder 08/05/2017 08/05/2017 Inactive clindamycin HCl 150 mg capsule RxNorm: 408142 1 Capsule(s) PO QID Dr Shultz prescribed 07/23/2017 07/29/2017 Inactive prednisone 5 mg tablet RxNorm: 924798 1 Tablet(s) PO daily 11/201707/03/2018 Active fentanyl 25 mcg/hr transdermal patch RxNorm: 708094 1 Patch TD Q72H use with 100mcg patch for a total of 125mcg daily 07/01/2017 07/30/2017 Inactive Lasix 20 mg tablet RxNorm: 348681 1 Tablet(s) PO BID 201710/28/2017 Inactive fentanyl 100 mcg/hr transdermal patch RxNorm: 134983 1 Patch TD Q72H use with 25mcg/hr patch 07/01/2017 07/30/2017 Inactive potassium chloride ER 10 mEq capsule,extended release RxNorm: 418970 1 Capsule(s) PO BID when taking lasix 07/01/20172017 Inactive oxycodone 30 mg tablet RxNorm: 4111222 1/2 Tablet(s) PO Q6 08/22/2017 Inactive fentanyl 100 mcg/hr transdermal patch RxNorm: 625978 1 Patch TD Q72H use with 25mcg/hr patch 05/07/2017 06/05/2017 Inactive fentanyl 25 mcg/hr transdermal patch RxNorm: 035506 1 Patch TD Q72H use with 100mcg patch for a total of 125mcg daily 05/07/2017 06/05/2017 Inactive fentanyl 100 mcg/hr transdermal patch RxNorm: 146092 1 Patch TD Q72H 04/08/2017 05/06/2017 Inactive fentanyl 25 mcg/hr transdermal patch RxNorm: 483084 1 Patch TD Q72H use with 100mcg patch for a total of 125mcg daily 04/08/2017 05/06/2017 Inactive Kenalog 40 mg/mL suspension for injection RxNorm: 1344226 1.5 Milliliter(s) Inj 04/02/2017 04/02/2017 Inactive fentanyl 100 mcg/hr transdermal patch RxNorm: 839826 1 Patch TD Q72H 03/12/2017 04/07/2017 Inactive fentanyl 25 mcg/hr transdermal patch RxNorm: 512251 1 Patch TD Q72H use with 100mcg patch for a total of 125mcg daily 03/12/2017 04/07/2017 Inactive oxycodone 30 mg tablet RxNorm: 0424888 1/2 Tablet(s) PO Q6 09/201704/07/2017 Inactive cyanocobalamin (vit B-12) 1,000 mcg/mL injection syringe RxNorm: 356589 1 Milliliter(s) Inj monthly 02/16/2017 No Stop Date Active please provide with supplys needed for injection fentanyl 100 mcg/hr transdermal patch RxNorm: 324881 1 Patch TD Q72H 02/06/2017 03/07/2017 Inactive Myrbetriq 50 mg tablet,extended release RxNorm: 5781380 1 Tablet(s) PO QPM 12/11/2016 07/22/2017 Inactive oxycodone 30 mg tablet RxNorm: 8919424 1/2 Tablet(s) PO Q6 10/201601/06/2017 Inactive naproxen 500 mg tablet RxNorm: 004205 1 Tablet(s) PO BID Take 1 tablet by mouth two times daily as needed 12/08/201607/08 Inactive - First Attempt Ref: [id number] Myrbetriq 50 mg tablet,extended release RxNorm: 2839529 1 Tablet(s) PO QPM 11/17/2016 12/10/2016 Inactive fentanyl 100 mcg/hr transdermal patch RxNorm: 885234 1 Patch TD Q72H 11/12/2016 12/11/2016 Inactive Vesicare 10 mg tablet RxNorm: 867938 1 Tablet(s) PO QPM 201611/18/2016 Inactive oxycodone 10 mg tablet RxNorm: 0177254 1-2 Tablet(s) PO Q4 PRN as needed to take between 30mg dose if needed for extra pain control 201612/07/2016 Inactive fentanyl 75 mcg/hr transdermal patch RxNorm: 021965 1 TD Q72H 10/22/2016 11/10/2016 Inactive oxycodone 10 mg tablet RxNorm: 1282128 1-2 Tablet(s) PO Q4 PRN as needed to take between 30mg dose if needed for extra pain control 201611/04/2016 Inactive Kenalog 40 mg/mL suspension for injection RxNorm: 6983731 1 Milliliter(s) Inj 10/02/2016 10/02/2016 Inactive Kenalog 40 mg/mL suspension for injection RxNorm: 2575086 1 Milliliter(s) Inj 09/12/2016 09/12/2016 Inactive cyclobenzaprine 5 mg tablet RxNorm: 157283 1 Tablet(s) PO Q8 as needed muscle spasms 09/11/2016 07/22/2017 Inactive prednisone 10 mg tablets in a dose pack RxNorm: 783624 1 Tablet(s) PO UD 09/09/2016 06/23/2017 Inactive potassium chloride ER 10 mEq capsule,extended release RxNorm: 973742 1 Capsule(s) PO BID as needed when taking lasix 08/26/2016 06/30/2017 Inactive Lasix 20 mg tablet RxNorm: 736936 1 Tablet(s) PO BID daily x 10 days then as needed edema 08/26/2016 12/23/2016 Inactive naproxen 500 mg tablet RxNorm: 492227 Take 1 tablet by mouth two times daily as needed 08/18/2016 11/15/2016 Inactive - First Attempt Ref: [id number] Lasix 20 mg tablet RxNorm: 098614 1 Tablet(s) PO QAM daily x 10 days then as needed edema 08/18/2016 08/25/2016 Inactive Vesicare 5 mg tablet RxNorm: 520016 1 Tablet(s) PO QPM 201611/04/2016 Inactive potassium chloride ER 10 mEq capsule,extended release RxNorm: 145891 1 Capsule(s) PO QAM as needed when taking lasix 08/18/2016 08/25/2016 Inactive Myrbetriq 25 mg tablet,extended release RxNorm: 7983305 1 Tablet(s) PO QHS 07/14/2016 07/29/2016 Inactive pantoprazole 40 mg tablet,delayed release RxNorm: 293264 Take 1 tablet by mouth daily 06/30/2016 12/26/2016 Inactive - Ref: [id number] Embeda 20 mg-0.8 mg capsule, extend release, oral only RxNorm: 256023 1 Capsule(s ) PO daily 06/04/2016 06/03/2016 Inactive Embeda 20 mg-0.8 mg capsule, extend release, oral only RxNorm: 997239 1 Capsule(s ) PO daily 06/04/2016 07/01/2016 Inactive oxycodone 10 mg tablet RxNorm: 1022244 1 Tablet(s) PO QID as needed to take between 30mg dose if needed for extra pain control 201606/10/2016 Inactive oxycodone 30 mg tablet RxNorm: 2340868 1 Tablet(s) PO Q6 201611/04/2016 Inactive cyanocobalamin (vit B-12) 1,000 mcg/mL injection solution RxNorm: 954017 1 Milliliter(s) Inj monthly 02/22/201602/15 Inactive she also needs syringes/ needles for this solution QS oxycodone 30 mg tablet RxNorm: 3323897 1 Tablet(s) PO Q6 201503/19/2016 Inactive oxycodone 10 mg tablet RxNorm: 7916803 1 Tablet(s) PO QID as needed to take between 30mg dose if needed for extra pain control 201503/19/2016 Inactive oxycodone 10 mg tablet RxNorm: 0302081 1 Tablet(s) PO QID as needed to take between 30mg dose if needed for extra pain control 201502/18/2016 Inactive oxycodone 30 mg tablet RxNorm: 0543066 1 Tablet(s) PO Q6 201502/18/2016 Inactive pantoprazole 40 mg tablet,delayed release RxNorm: 520228 Take 1 tablet by mouth daily 01/22/2016 06/29/2016 Inactive - First Attempt Ref: [id number] oxycodone 30 mg tablet RxNorm: 1184699 1 Tablet(s) PO Q6 201501/28/2016 Inactive oxycodone 10 mg tablet RxNorm: 1620396 1 Tablet(s) PO QID as needed take between 20mg dose if needed for extra pain control 11/07/2015 12/06/2015 Inactive oxycodone 20 mg tablet RxNorm: 7428784 1 Tablet(s) PO Q6 as needed 11/07/2015 12/31/2015 Inactive doxycycline hyclate 100 mg tablet RxNorm: 143919 1 Tablet(s) PO BID 11/01/2015 11/10/2015 Inactive potassium chloride ER 10 mEq capsule,extended release RxNorm: 932654 1 Capsule(s) PO TIW as needed when taking lasix 09/04/2015 08/17/2016 Inactive Voltaren 1 % topical gel RxNorm: 446554 2 Gram(s) TOP QID 08/2909/03/2015 Inactive pa approved Voltaren 1 % topical gel RxNorm: 432722 2 Gram(s) TOP QID 08/0808/29/2015 Inactive naproxen 500 mg tablet RxNorm: 344112 1 Tablet(s) PO BID 201508/17/2016 Inactive naproxen 500 mg tablet RxNorm: 622915 1 Tablet(s) PO BID 201508/08/2015 Inactive doxycycline hyclate 100 mg tablet RxNorm: 857688 1 Tablet(s) PO BID do not take calcium/vitamin d while on antibiotic 07/18/2015 07/31/2015 Inactive Vitamin D2 50,000 unit capsule RxNorm: 413860 1 Capsule(s) PO QW 07/02/2015 11/18/2015 Inactive Premarin 0.3 mg tablet RxNorm: 368061 1 Tablet(s) PO daily 12/201505/09/2015 Inactive Premarin 0.3 mg tablet RxNorm: 885209 1 Tablet(s) PO daily 12/201503/17/2016 Inactive simvastatin 40 mg tablet RxNorm: 113999 1 Tablet(s) PO daily 03/17/2016 Inactive spironolactone 25 mg tablet RxNorm: 913608 TAKE ONE TABLET BY MOUTH DAILY 05/07/2015 05/27/2016 Inactive potassium chloride ER 10 mEq capsule,extended release RxNorm: 472892 1 Capsule(s) PO TIW as needed when taking lasix 04/17/2015 09/03/2015 Inactive alendronate 70 mg tablet RxNorm: 670063 1 Tablet(s) PO weekly QW 04/17/2015 07/01/2015 Inactive Vitamin D2 50,000 unit capsule RxNorm: 207860 1 Capsule(s) PO QW 03/30/2015 06/27/2015 Inactive Vitamin D2 50,000 unit capsule RxNorm: 940616 1 Capsule(s) PO QW 03/21/2015 03/29/2015 Inactive cyanocobalamin (vit B-12) 1,000 mcg/mL injection solution RxNorm: 504404 1 Milliliter(s) Inj monthly 03/19/201502/20 Inactive cyanocobalamin (vit B-12) 1,000 mcg/mL injection solution RxNorm: 335454 1 Milliliter(s) Inj monthly 03/16/201503/18 Inactive cyanocobalamin (vit B-12) 1,000 mcg/mL injection solution RxNorm: 703673 1 Milliliter(s) Inj monthly 03/16/201503/15 Inactive pantoprazole 40 mg tablet,delayed release RxNorm: 516818 1 Tablet(s) PO daily 03/05/2015 01/21/2016 Inactive Lasix 20 mg tablet RxNorm: 787396 1 Tablet(s) PO TIW as needed edema 02/08/2015 02/02/2016 Inactive oxycodone 10 mg tablet RxNorm: 6709346 1 Tablet(s) PO QID as needed take between 20mg dose if needed for extra pain control 11/09/2014 12/08/2014 Inactive oxycodone 20 mg tablet RxNorm: 3987928 1 Tablet(s) PO Q6 as needed 10/25/2014 11/06/2015 Inactive doxycycline hyclate 100 mg tablet RxNorm: 099992 1 Tablet(s) PO BID 10/23/2014 11/19/2014 Inactive Cipro 500 mg tablet RxNorm: 003030 1 Tablet(s) PO BID 201410/16/2014 Inactive Cipro 500 mg tablet RxNorm: 257896 1 Tablet(s) PO BID 201410/09/2014 Inactive oxycodone 20 mg tablet RxNorm: 6894331 1 Tablet(s) PO Q6 as needed 09/25/2014 10/24/2014 Inactive Lasix 20 mg tablet RxNorm: 631121 1 Tablet(s) PO TIW as needed edema 09/14/2014 01/11/2015 Inactive potassium chloride ER 10 mEq capsule,extended release RxNorm: 937301 1 Capsule(s) PO TIW as needed when taking lasix 09/14/2014 01/11/2015 Inactive doxycycline hyclate 100 mg tablet RxNorm: 029019 1 Tablet(s) PO BID 09/05/2014 09/14/2014 Inactive doxycycline hyclate 100 mg tablet RxNorm: 685475 1 Tablet(s) PO BID 09/05/2014 09/04/2014 Inactive oxycodone 20 mg tablet RxNorm: 9909982 1 Tablet(s) PO Q6 as needed 08/29/2014 09/24/2014 Inactive spironolactone 25 mg tablet RxNorm: 135452 1 Tablet(s) PO daily 08/11/2014 03/08/2015 Inactive oxycodone 20 mg tablet RxNorm: 1301347 1 Tablet(s) PO Q6 as needed 08/02/2014 08/28/2014 Inactive Vitamin D3 2,000 unit tablet RxNorm: 982850 1 Tablet(s) PO daily 07/14/2014 No Stop Date Active Vitamin D2 50,000 unit capsule RxNorm: 540925 1 Capsule(s) PO QW 07/14/2014 10/11/2014 Inactive Vitamin D2 50,000 unit capsule RxNorm: 423633 1 Capsule(s) PO QW 07/14/2014 07/13/2014 Inactive Prolia 60 mg/mL subcutaneous syringe RxNorm: 566392 Milliliter(s) SQ EVERY 6 MONTHS No Start Date Active Carafate 1 gram tablet RxNorm: 036023 1 Tablet(s) PO BID No Start Date Active Miralax oral RxNorm: 299527 oral No Start Date Active Stool Softener oral RxNorm: 41682 oral No Start Date Active Calcium + Vitamin D oral RxNorm: 4018 oral No Start Date Active naproxen 500 mg tablet RxNorm: 252849 1 Tablet(s) PO BID No Start Date 08/05/2015 Inactive albuterol sulfate 2.5 mg/3 mL (0.083 %) solution for nebulization RxNorm: 101351 3 Milliliter(s) INH Q4 PRN No Start Date 02/17/2018 Inactive oxycodone 20 mg tablet RxNorm: 2656445 1 Tablet(s) PO Q6 as needed No Start Date 08/01/2014 Inactive aspirin 81 mg tablet RxNorm: 788999 1 Tablet(s) PO daily No Start Date 07/22/2017 Inactive simvastatin 40 mg tablet RxNorm: 385528 1 Tablet(s) PO daily No Start Date 05/09/2015 Inactive cyanocobalamin (vit B-12) 1,000 mcg/mL injection syringe RxNorm: 485181 1 Inj monthly No Start Date 02/15/2017 Inactive Reglan 10 mg tablet RxNorm: 460507 1 Tablet(s) PO as needed No Start Date 07/29/2016 Inactive alendronate 70 mg tablet RxNorm: 520237 1 Tablet(s) PO weekly No Start Date 04/16/2015 Inactive Protonix 40 mg tablet,delayed release RxNorm: 414364 1 Tablet(s) PO daily No Start Date 03/04/2015 Inactive cyclobenzaprine 5 mg tablet RxNorm: 775970 1 Tablet(s) PO Q8 as needed muscle spasms No Start Date 09/10/2016 Inactive Vitamin D3 1,000 unit capsule RxNorm: 003601 1 Capsule(s) PO daily No Start Date 07/13/2014 Inactive Cardizem CD 360 mg capsule,extended release RxNorm: 473251 1 Capsule(s) PO daily No Start Date 01/04/2018 Inactive prednisone 10 mg tablets in a dose pack RxNorm: 315712 1 Tablet(s) PO UD No Start Date 09/08/2016 Inactive Medication Administered Medication Codes Instructions Start Date Status Kenalog 40 mg/mL suspension for injection RxNorm: 2369739 1Milliliter 08/31/2017 No longer Active Kenalog 40 mg/mL suspension for injection RxNorm: 7280841 2Milliliter 08/21/2017 No longer Active Kenalog 40 mg/mL suspension for injection RxNorm: 8506811 2MilliliterUD 08/12/2017 No longer Active Kenalog 40 mg/mL suspension for injection RxNorm: 7940442 2Milliliter 08/05/2017 No longer Active Kenalog 40 mg/mL suspension for injection RxNorm: 1026911 1.5Milliliter 04/02/2017 No longer Active Kenalog 40 mg/mL suspension for injection RxNorm: 0524161 1Milliliter 10/02/2016 No longer Active Kenalog 40 mg/mL suspension for injection RxNorm: 8646932 1Milliliter 09/12/2016 No longer Active Immunizations Vaccine [...] Item Item Code Result Date Comp Metabolic Raw722 NA 134 mEq/L 03/03/2018 Comp Metabolic Axm683 K 3.3 mEq/L 03/03/2018 Comp Metabolic Ckx997 CL 90 mEq/L 03/03/2018 Comp Metabolic Meg020 CO2 33.0 mEq/L 03/03/2018 Comp Metabolic Cga866 ANION GAP 14 03/03/2018 Comp Metabolic Aeu372 GLUCOSE 146 mg/dL 03/03/2018 Comp Metabolic Djh520 Creat 1.7 mg/dL 03/03/2018 Comp Metabolic Nfr877 eGFR 31 ml/min/1.73m2 03/03/2018 Comp Metabolic Syi680 BUN 74 mg/dL 03/03/2018 Comp Metabolic Ssj166 B/C Ratio 43.8 Ratio 03/03/2018 Comp Metabolic Trh786 CALCIUM 8.6 mg/dL 03/03/2018 Comp Metabolic Xfh994 ALK PHOS 70 U/L 03/03/2018 Comp Metabolic Lna817 AST(SGOT) 14 U/L 03/03/2018 Comp Metabolic Gnl115 ALT(SGPT) 9 U/L 03/03/2018 Comp Metabolic Jtt426 BILI T 0.6 mg/dL 03/03/2018 Comp Metabolic Srz802 ALBUMIN 3.8 g/dL 03/03/2018 Comp Metabolic Whl115 TPRO 6.7 g/dL 03/03/2018 Comp Metabolic Lsi843 GLOB 2.9 g/dL 03/03/2018 Comp Metabolic Ayp188 A/G Ratio 1.3 Ratio 03/03/2018 Comp Metabolic Tww614 Osmo 293 mOsmo 03/03/2018 Cbc With Differential [...] 29.9 pg 03/03/2018 Cbc With Differential Ord2 [place]% 11.1 % 03/03/2018 Cbc With Differential Ord2 [...] 1.38 K/ul 03/03/2018 Cbc With Differential Ord2 [place] ABS# 0.9 K/ul 03/03/2018 Cbc With Differential Ord2 Eos ABS# 0.0 K/ul 03/03/2018 Cbc With Differential Ord2 Baso ABS# 0.1 K/ul 03/03/2018 Tibc Ord40 Iron 75 ug/dl 10/22/2017 Tibc Ord40 UIBC 270 ug/dL 10/22/2017 Tibc Ord40 TIBC 345 ug/dL 10/22/2017 Tibc Ord40 Fe-%Sat 21.7 % 10/22/2017 Prealbumin 071747 PREALBUMIN 33 mg/dL 10/21/2017 Comp Metabolic Tij136 NA 134 mEq/L 10/20/2017 Comp Metabolic Gui372 K 3.7 mEq/L 10/20/2017 Comp Metabolic Yeb854 CL 93 mEq/L 10/20/2017 Comp Metabolic Gql871 CO2 29.0 mEq/L 10/20/2017 Comp Metabolic Ifr053 ANION GAP 16 10/20/2017 Comp Metabolic Ngk676 GLUCOSE 115 mg/dL 10/20/2017 Comp Metabolic Osy251 Creat 0.8 mg/dL 10/20/2017 Comp Metabolic Ncj488 eGFR 73 ml/min/1.73m2 10/20/2017 Comp Metabolic Gda600 BUN 46 mg/dL 10/20/2017 Comp Metabolic Cqr315 B/C Ratio 57.5 Ratio 10/20/2017 Comp Metabolic Hgp437 CALCIUM 8.7 mg/dL 10/20/2017 Comp Metabolic Jag762 ALK PHOS 56 U/L 10/20/2017 Comp Metabolic Cwe508 AST(SGOT) 19 U/L 10/20/2017 Comp Metabolic Hyc000 ALT(SGPT) 23 U/L 10/20/2017 Comp Metabolic Rkn947 BILI T 0.6 mg/dL 10/20/2017 Comp Metabolic Ref112 ALBUMIN 4.0 g/dL 10/20/2017 Comp Metabolic Avr833 TPRO 6.6 g/dL 10/20/2017 Comp Metabolic Oym324 GLOB 2.7 g/dL 10/20/2017 Comp Metabolic Uee102 A/G Ratio 1.5 Ratio 10/20/2017 Comp Metabolic Fco775 Osmo 281 mOsmo 10/20/2017 Tsh Ord6 TSH [...] 35.4 pg 10/20/2017 Cbc With Differential Ord2 [place]% 9.9 % 10/20/2017 Cbc With Differential [...] 1.15 K/ul 10/20/2017 Cbc With Differential Ord2 [place] ABS# 0.6 K/ul 10/20/2017 Cbc With Differential Ord2 Eos ABS# 0.0 K/ul 10/20/2017 Cbc With Differential Ord2 Baso ABS# 0.0 K/ul 10/20/2017 Iron Ord72 Iron 75 ug/dl 10/20/2017 Romie Reflex Profile [id number] ROMIE (BRYANNA) SCREEN NONE DETECTED 01/12/2017 Comp Metabolic Nkh625 NA 129 mEq/L 01/08/2017 Comp Metabolic Ftq680 K 3.9 mEq/L 01/08/2017 Comp Metabolic Oak969 CL 94 mEq/L 01/08/2017 Comp Metabolic Xzc066 CO2 31.0 mEq/L 01/08/2017 Comp Metabolic Kem662 ANION GAP 8 01/08/2017 Comp Metabolic Fcz322 GLUCOSE 103 mg/dL 01/08/2017 Comp Metabolic Qkf295 Creat 0.9 mg/dL 01/08/2017 Comp Metabolic Fbb882 eGFR 61 ml/min/1.73m2 01/08/2017 Comp Metabolic Xdh222 BUN 29 mg/dL 01/08/2017 Comp Metabolic Tlu017 B/C Ratio 30.9 Ratio 01/08/2017 Comp Metabolic Kei864 CALCIUM 8.5 mg/dL 01/08/2017 Comp Metabolic Tye150 ALK PHOS 58 U/L 01/08/2017 Comp Metabolic Xjl702 AST(SGOT) 17 U/L 01/08/2017 Comp Metabolic Wmz457 ALT(SGPT) 10 U/L 01/08/2017 Comp Metabolic Srh490 BILI T 0.4 mg/dL 01/08/2017 Comp Metabolic Xdx294 ALBUMIN 3.0 g/dL 01/08/2017 Comp Metabolic Cye251 TPRO 5.5 g/dL 01/08/2017 Comp Metabolic Dde080 GLOB 2.5 g/dL 01/08/2017 Comp Metabolic Rjb682 A/G Ratio 1.2 Ratio 01/08/2017 Comp Metabolic Vjy016 Osmo 265 mOsmo 01/08/2017 Cbc With Differential [...] 23.3 % 01/08/2017 Cbc With Differential Ord2 [place]% 12.2 % 01/08/2017 Cbc With Differential [...] 1.62 K/ul 01/08/2017 Cbc With Differential Ord2 [place] ABS# 0.9 K/ul 01/08/2017 Cbc With [...] 100.3 fl 11/10/2016 Cbc With Differential Ord2 [place]% 9.1 % 11/10/2016 Cbc With Differential [...] 0.78 K/ul 11/10/2016 Cbc With Differential Ord2 [place] ABS# 0.5 K/ul 11/10/2016 Cbc With [...] 30.3 pg 10/07/2016 Cbc With Differential Ord2 [place]% 11.8 % 10/07/2016 Cbc With Differential [...] 1.54 K/ul 10/07/2016 Cbc With Differential Ord2 [place] ABS# 1.0 K/ul 10/07/2016 Cbc With Differential Ord2 Eos ABS# 0.1 K/ul 10/07/2016 Cbc With Differential Ord2 Baso ABS# 0.0 K/ul 10/07/2016 Comp Metabolic Yig710 NA 129 mEq/L 08/26/2016 Comp Metabolic Qes941 K 3.9 mEq/L 08/26/2016 Comp Metabolic Uvu820 CL 93 mEq/L 08/26/2016 Comp Metabolic Brh267 CO2 30.0 mEq/L 08/26/2016 Comp Metabolic Yql380 ANION GAP 10 08/26/2016 Comp Metabolic Ehv407 GLUCOSE 87 mg/dL 08/26/2016 Comp Metabolic Ggl453 Creat 0.6 mg/dL 08/26/2016 Comp Metabolic Dre590 eGFR 96 ml/min/1.73m2 08/26/2016 Comp Metabolic Ajw241 BUN 17 mg/dL 08/26/2016 Comp Metabolic Czu329 B/C Ratio 27.0 Ratio 08/26/2016 Comp Metabolic Qrf702 CALCIUM 7.6 mg/dL 08/26/2016 Comp Metabolic Btr138 ALK PHOS 72 U/L 08/26/2016 Comp Metabolic Xtz540 AST(SGOT) 20 U/L 08/26/2016 Comp Metabolic Tpg728 ALT(SGPT) 12 U/L 08/26/2016 Comp Metabolic Qex582 BILI T 0.3 mg/dL 08/26/2016 Comp Metabolic Wjf979 ALBUMIN 2.7 g/dL 08/26/2016 Comp Metabolic Vmw355 TPRO 5.3 g/dL 08/26/2016 Comp Metabolic Dgh961 GLOB 2.6 g/dL 08/26/2016 Comp Metabolic Pce699 A/G Ratio 1.1 Ratio 08/26/2016 Comp Metabolic Nya600 Osmo 260 mOsmo 08/26/2016 Cbc With Differential [...] 28.3 pg 08/26/2016 Cbc With Differential Ord2 Island% 9.6 % 08/26/2016 Cbc With Differential [...] 1.83 K/ul 08/26/2016 Cbc With Differential Ord2 Island ABS# 1.0 K/ul 08/26/2016 Cbc With Differential Ord2 Eos ABS# 0.1 K/ul 08/26/2016 Cbc With Differential Ord2 Baso ABS# 0.0 K/ul 08/26/2016 Magnesium Ord90 Mag 1.9 mg/dL 08/26/2016 Vitamin D 25 Oh [id number] VITAMIN D, 25 HYDROXY 34.59 ng/mL Tibc Ord40 Iron 13 ug/dl 08/26/2016 Tibc Ord40 UIBC 283 ug/dL 08/26/2016 Tibc Ord40 TIBC 296 ug/dL 08/26/2016 Tibc Ord40 Fe-%Sat 4.4 % 08/26/2016 Ferritin Ord22 FERRITIN 28.8 ng/mL 08/26/2016 Sed Rate Ord21 ESR 20 mm/hr 11/19/2015 Comp Metabolic Pvg693 NA 131 mEq/L 08/22/2015 Comp Metabolic Hbd977 K 4.2 mEq/L 08/22/2015 Comp Metabolic Xxi163 CL 98 mEq/L 08/22/2015 Comp Metabolic Hyp590 CO2 27.0 mEq/L 08/22/2015 Comp Metabolic Uif162 ANION GAP 10 08/22/2015 Comp Metabolic Ukn871 GLUCOSE 80 mg/dL 08/22/2015 Comp Metabolic Pnw512 Creat 0.5 mg/dL 08/22/2015 Comp Metabolic Imi906 eGFR 120 ml/min/1.73m2 08/22/2015 Comp Metabolic Evn509 BUN 13 mg/dL 08/22/2015 Comp Metabolic Src164 B/C Ratio 25.0 Ratio 08/22/2015 Comp Metabolic Fpo512 CALCIUM 8.2 mg/dL 08/22/2015 Comp Metabolic Xny559 ALK PHOS 49 U/L 08/22/2015 Comp Metabolic Xpm981 AST(SGOT) 18 U/L 08/22/2015 Comp Metabolic Ekx862 ALT(SGPT) 11 U/L 08/22/2015 Comp Metabolic Jqr220 BILI T 0.5 mg/dL 08/22/2015 Comp Metabolic Jsa136 ALBUMIN 3.5 g/dL 08/22/2015 Comp Metabolic Glx463 TPRO 6.2 g/dL 08/22/2015 Comp Metabolic Vnq691 GLOB 2.7 g/dL 08/22/2015 Comp Metabolic Ldi108 A/G Ratio 1.3 Ratio 08/22/2015 Comp Metabolic Xnw178 Osmo 262 mOsmo 08/22/2015 Cbc With Differential [...] 32.4 pg 08/22/2015 Cbc With Differential Ord2 Island% 10.3 % 08/22/2015 Cbc With Differential [...] 1.39 K/ul 08/22/2015 Cbc With Differential Ord2 Island ABS# 0.7 K/ul 08/22/2015 Cbc With Differential Ord2 Eos ABS# 0.1 K/ul 08/22/2015 Cbc With Differential Ord2 Baso ABS# 0.0 K/ul 08/22/2015 Tsh Ord6 hTSH II 2.19 uIU/mL 08/22/2015 Vitamin D 25 Oh Tig6491 VITAMIN D, 25 HYDROXY 55.10 ng/mL Lipid [...] 1.5 Ratio 03/16/2015 Vitamin D 25 Oh Dxi7441 VITAMIN D, 25 HYDROXY 28.94 ng/mL Cbc [...] 28.1 pg 03/16/2015 Cbc With Differential Ord2 Island% 11.2 % 03/16/2015 Cbc With Differential [...] 2.37 K/ul 03/16/2015 Cbc With Differential Ord2 Island ABS# 0.8 K/ul 03/16/2015 Cbc With Differential Ord2 Eos ABS# 0.1 K/ul 03/16/2015 Cbc With Differential Ord2 Baso ABS# 0.0 K/ul 03/16/2015 Cbc With Differential Ord2 New Analyzer Notice Please note new ref ranges starting 03-14-2015 due to implemntation of new five part differential hematolgy analyzer. 03/16/2015 Comp Metabolic Hcs222 NA 131 mEq/L 03/16/2015 Comp Metabolic Elq536 K 4.1 mEq/L 03/16/2015 Comp Metabolic Bcd180 CL 94 mEq/L 03/16/2015 Comp Metabolic Xwq550 CO2 28.0 mEq/L 03/16/2015 Comp Metabolic Nyq164 ANION GAP 13 03/16/2015 Comp Metabolic Jps361 GLUCOSE 96 mg/dL 03/16/2015 Comp Metabolic Mde528 Creat 0.7 mg/dL 03/16/2015 Comp Metabolic Nfp349 eGFR 80 ml/min/1.73m2 03/16/2015 Comp Metabolic Zvw196 BUN 16 mg/dL 03/16/2015 Comp Metabolic Cim708 B/C Ratio 21.6 Ratio 03/16/2015 Comp Metabolic Ybm626 CALCIUM 8.9 mg/dL 03/16/2015 Comp Metabolic Hqy251 ALK PHOS 44 U/L 03/16/2015 Comp Metabolic Pul397 AST(SGOT) 22 U/L 03/16/2015 Comp Metabolic Idp548 ALT(SGPT) 14 U/L 03/16/2015 Comp Metabolic Pia158 BILI T 0.5 mg/dL 03/16/2015 Comp Metabolic Iyw616 ALBUMIN 3.4 g/dL 03/16/2015 Comp Metabolic Wtd126 TPRO 6.0 g/dL 03/16/2015 Comp Metabolic Rtx186 GLOB 2.6 g/dL 03/16/2015 Comp Metabolic Iti729 A/G Ratio 1.3 Ratio 03/16/2015 Comp Metabolic Qii905 Osmo 264 mOsmo 03/16/2015 Comp Metabolic Ppd475 NA 129 mEq/L 11/09/2014 Comp Metabolic Vlq618 K 4.2 mEq/L 11/09/2014 Comp Metabolic Bnj270 CL 96 mEq/L 11/09/2014 Comp Metabolic Icy526 CO2 27.0 mEq/L 11/09/2014 Comp Metabolic Udi057 ANION GAP 10 11/09/2014 Comp Metabolic Xtn029 GLUCOSE 144 mg/dL 11/09/2014 Comp Metabolic Gxs183 Creat 0.8 mg/dL 11/09/2014 Comp Metabolic Iku077 eGFR 73 ml/min/1.73m2 11/09/2014 Comp Metabolic Bnp631 BUN 22 mg/dL 11/09/2014 Comp Metabolic Ogg367 B/C Ratio 27.5 Ratio 11/09/2014 Comp Metabolic Bqy048 CALCIUM 8.6 mg/dL 11/09/2014 Comp Metabolic Nlo362 ALK PHOS 55 U/L 11/09/2014 Comp Metabolic Dei438 AST(SGOT) 27 U/L 11/09/2014 Comp Metabolic Fyh375 ALT(SGPT) 18 U/L 11/09/2014 Comp Metabolic Msq707 BILI T 0.5 mg/dL 11/09/2014 Comp Metabolic Brb288 ALBUMIN 3.0 g/dL 11/09/2014 Comp Metabolic Qrl412 TPRO 5.4 g/dL 11/09/2014 Comp Metabolic Ixa001 GLOB 2.4 g/dL 11/09/2014 Comp Metabolic Yui789 A/G Ratio 1.3 Ratio 11/09/2014 Comp Metabolic Awc700 Osmo 265 mOsmo 11/09/2014 Magnesium Ord90 Mag [...] greater than left Full Exam - General 1995 Musculoskeletal gait [...] Procedures Procedure Codes Date DRAIN/INJECT JOINT/BURSA CPT-4: 91561 08/21/2017 DRAIN/INJECT JOINT/BURSA CPT-4: 59829 08/12/2017 TRIAMCINOLONE ACET INJ NOS CPT-4: J3301 08/12/2017 DRAIN/INJECT JOINT/BURSA CPT-4: 63396 08/05/2017 TRIAMCINOLONE ACET INJ NOS CPT-4: J3301 08/05/2017 DRAIN/INJECT JOINT/BURSA CPT-4: 75360 07/23/2017 DRAIN/INJECT JOINT/BURSA CPT-4: 09972 07/09/2017 TRIAMCINOLONE ACET INJ NOS CPT-4: J3301 07/09/2017 PRESCRIP TRANSMIT VIA ERX SY CPT-4: G8553 07/09/2017 DRAIN/INJECT JOINT/BURSA CPT-4: 67997 07/01/2017 TRIAMCINOLONE ACET INJ NOS CPT-4: J3301 07/01/2017 PRESCRIP TRANSMIT VIA ERX SY CPT-4: G8553 07/01/2017 DRAIN/INJECT JOINT/BURSA CPT-4: 39536 06/17/2017 DRAIN/INJECT JOINT/BURSA CPT-4: 99457 04/02/2017 TRIAMCINOLONE ACET INJ NOS CPT-4: J3301 04/02/2017 DRAIN/INJECT JOINT/BURSA CPT-4: 11758 02/06/2017 ADMIN INFLUENZA VIRUS VAC CPT-4: G0008 12/08/2016 FLU VACC PRSV FREE INC ANTIG CPT-4: 94489 12/08/2016 PRESCRIP TRANSMIT VIA ERX SY CPT-4: G8553 12/08/2016 PRESCRIP TRANSMIT VIA ERX SY CPT-4: G8553 11/17/2016 TRIAMCINOLONE ACET INJ NOS CPT-4: J3301 10/02/2016 TRIAMCINOLONE ACET INJ NOS CPT-4: J3301 09/12/2016 DRAIN/INJECT JOINT/BURSA CPT-4: 67012 09/08/2016 TRIAMCINOLONE ACET INJ NOS CPT-4: J3301 09/08/2016 PRESCRIP TRANSMIT VIA ERX SY CPT-4: G8553 08/26/2016 PRESCRIP TRANSMIT VIA ERX SY CPT-4: G8553 08/18/2016 ADMIN INFLUENZA VIRUS VAC CPT-4: G0008 11/19/2015 FLU VACC PRSV FREE INC ANTIG Formatting Model/CDA Sections, Assigned to/Luanne Elaine CPT-4: 34214Cpliiow 11/19/2015 PRESCRIP TRANSMIT VIA ERX SY CPT-4: G8553 09/04/2015 PRESCRIP TRANSMIT VIA ERX SY CPT-4: G8553 2015 PRESCRIP TRANSMIT VIA ERX SY CPT-4: G8553 07/18/2015 PRESCRIP TRANSMIT VIA ERX SY CPT-4: G8553 07/02/2015 REMOVE IMPACTED EAR WAX UNI CPT-4: 52435 04/09/2015 PRESCRIP TRANSMIT VIA ERX SY CPT-4: G8553 02/08/2015 ADMIN INFLUENZA VIRUS VAC CPT-4: G0008 01/10/2015 FLU VACC PRSV FREE INC ANTIG Formatting Model/CDA Sections, Assigned to/Luanne Elaine CPT-4: 32894Miwpxiw 01/10/2015 ADMIN PNEUMOCOCCAL VACCINE Formatting Model/CDA Sections, Assigned to SNOMED CT: 48002270 CPT-4: H8930Ywpephh 12/11/2014 PNEUMOCOCCAL VACC [address]: 40011959 CPT-4: 55949 12/11/2014 Vital Signs Date Vital 03/03/2018 Blood [...] Code : 8480-6 BMI: 23.5 Code : 23656-6 Heart Rate 1 : 58 bpm Height: 5'8" SpO2: 96% Weight: 152 lbs 11/30/2017 Blood Pressure 1: 122/70 Code : 8480-6 Heart Rate 1: 105 bpm Height: 5'8" SpO2: 98% Weight: 11/27/2017 Blood Pressure 1: 148/76 Code : 8480-6 Heart Rate 1: 72 bpm Height: 5'8" SpO2: 99% Weight: 11/10/2017 Blood Pressure 1: 130/76 Code : 8480-6 BMI: 27.3 Code : 24135-6 Heart Rate 1 : 98 bpm Height: [...] Code : 8480-6 BMI: 24.7 Code : 46121-6 Heart Rate 1 : 100 bpm Height: 5'8" SpO2: 95% Weight: 160 lbs 08/31/2017 Blood Pressure 1: 128/78 Code : 8480-6 BMI: 23.6 Code : 32360-8 Heart Rate 1 : 102 bpm Height: 5'8" SpO2: 96% Weight: 153 lbs 08/21/2017 Blood Pressure 1: 138/78 Code : 8480-6 Heart Rate 1: 97 bpm SpO2: 95% Weight: 156 lbs 2 oz 08/12/2017 Blood Pressure 1: 138/74 Code : 8480-6 BMI: 25.0 Code : 40322-8 Heart Rate 1 : 94 bpm Height: 5'8" SpO2: 98% Weight: 162 lbs 08/05/2017 Blood Pressure 1: 126/78 Code : 8480-6 BMI: 25.8 Code : 84012-9 Heart Rate 1 : 74 bpm Height: 5'8" SpO2: 96% Weight: 167 lbs 07/23/2017 Blood Pressure 1: 106/64 Code : 8480-6 BMI: 25.3 Code : 00642-5 Heart Rate 1 : 81 bpm Height: 5'8" SpO2: 99% Weight: 163 lbs 14 oz 07/09/2017 Blood Pressure 1: 130/68 Code : 8480-6 Heart Rate 1: 82 bpm Height: 5'8" SpO2: 98% Weight: 07/01/2017 Blood Pressure 1: 124/76 Code : 8480-6 BMI: 26.5 Code : 23057-1 Heart Rate 1 : 99 bpm Height: 5'8" SpO2: 98% Weight: 172 lbs 06/24/2017 Blood Pressure 1: 118/70 Code : 8480-6 Heart Rate 1: 103 bpm Height: 5'8" SpO2: 98% Weight: 06/17/2017 Blood Pressure 1: 110/64 Code : 8480-6 BMI: 25.0 Code : 85313-8 Heart Rate 1 : 73 bpm Height: 5'8" Weight: 162 lbs 06/01/2017 Blood Pressure 1: 158/84 Code : 8480-6 BMI: 24.4 Code : 01068-1 Heart Rate 1 : 94 bpm Height: 5'8" SpO2: 95% Weight: 158 lbs 04/02/2017 Blood Pressure 1: 164/80 Code : 8480-6 BMI: 23.1 Code : 97451-6 Heart Rate 1 : 76 bpm Height: 5'8" SpO2: 94% Weight: 150 lbs 03/12/2017 Blood Pressure 1: 130/74 Code : 8480-6 BMI: 23.0 Code : 85173-5 Heart Rate 1 : 92 bpm Height: 5'8" SpO2: 94% Weight: 149 lbs 02/06/2017 Height: Weight: 01/08/2017 Blood Pressure 1: 136/76 Code : 8480-6 BMI: 21.4 Code : 88690-6 Heart Rate 1 : 85 bpm Height: 5'8" SpO2: 98% Weight: 138 lbs 8 oz 12/08/2016 Blood Pressure 1: 132/66 Code : 8480-6 BMI: 22.2 Code : 99743-6 Heart Rate 1 : 106 bpm Height: 5'8" SpO2: 97% Weight: 144 lbs 11/17/2016 Blood Pressure 1: 146/80 Code : 8480-6 BMI: 22.4 Code : 57998-7 Heart Rate 1 : 100 bpm Height: 5'8" SpO2: 98% Weight: 145 lbs 11/10/2016 Blood Pressure 1: 122/62 Code : 8480-6 BMI: 22.2 Code : 64683-7 Height: 5'8" Weight: 144 lbs 11/05/2016 Blood Pressure 1: 146/80 Code : 8480-6 BMI: 22.2 Code : 79101-9 Heart Rate 1 : 77 bpm Height: 5'8" SpO2: 99% Weight: 144 lbs 10/07/2016 Blood Pressure 1: 132/68 Code : 8480-6 BMI: 22.8 Code : 33222-3 Heart Rate 1 : 90 bpm Height: 5'8" SpO2: 97% Weight: 148 lbs 10/02/2016 Blood Pressure 1: 166/86 Code : 8480-6 BMI: 22.8 Code : 66397-8 Heart Rate 1 : 96 bpm Height: 5'8" SpO2: 96% Weight: 148 lbs 09/12/2016 Blood Pressure 1: 130/86 Code : 8480-6 Height: Weight: 09/08/2016 Blood Pressure 1: 132/74 Code : 8480-6 BMI: 22.4 Code : 14281-9 Heart Rate 1 : 93 bpm Height: 5'8" SpO2: 99% Weight: 145 lbs 08/26/2016 Blood Pressure 1: 132/78 Code : 8480-6 BMI: 23.9 Code : 41481-1 Heart Rate 1 : 80 bpm Height: 5'8" SpO2: 94% Weight: 155 lbs 08/18/2016 Blood Pressure 1: 130/70 Code : 8480-6 BMI: 23.6 Code : 00728-7 Heart Rate 1 : 100 bpm Height: 5'8" SpO2: 94% Weight: 153 lbs 07/30/2016 Blood Pressure 1: 144/84 Code : 8480-6 BMI: 22.4 Code : 39556-3 Heart Rate 1 : 86 bpm Height: 5'8" SpO2: 97% Weight: 145 lbs 07/14/2016 Blood Pressure 1: 122/74 Code : 8480-6 BMI: 22.5 Code : 85554-9 Heart Rate 1 : 87 bpm Height: 5'8" SpO2: 97% Weight: 146 lbs 07/04/2016 Blood Pressure 1: 128/78 Code : 8480-6 BMI: 22.5 Code : 06611-8 Heart Rate 1 : 98 bpm Height: 5'8" Weight: 146 lbs 06/26/2016 Blood Pressure 1: 122/68 Code : 8480-6 BMI: 22.5 Code : 25163-5 Heart Rate 1 : 102 bpm Height: 5'8" SpO2: 98% Weight: 146 lbs 05/28/2016 Blood Pressure 1: 122/68 Code : 8480-6 BMI: 22.4 Code : 35302-9 Heart Rate 1 : 89 bpm Height: 5'8" SpO2: 97% Weight: 145 lbs 03/18/2016 Blood Pressure 1: 132/66 Code : 8480-6 BMI: 22.8 Code : 43338-5 Heart Rate 1 : 96 bpm Height: 5'8" SpO2: 98% Weight: 148 lbs 01/29/2016 Blood Pressure 1: 122/66 Code : 8480-6 BMI: 22.2 Code : 69296-0 Heart Rate 1 : 90 bpm Height: 5'8" SpO2: 99% Weight: 144 lbs 01/01/2016 Blood Pressure 1: 148/82 Code : 8480-6 BMI: 22.5 Code : 61051-9 Heart Rate 1 : 82 bpm Height: 5'8" Weight: 146 lbs 11/19/2015 Blood Pressure 1: 140/74 Code : 8480-6 BMI: 23.7 Code : 64259-1 Heart Rate 1 : 79 bpm Height: 5'8" SpO2: 96% Weight: 153 lbs 8 oz 11/01/2015 Blood Pressure 1: 118/72 Code : 8480-6 Heart Rate 1: 90 bpm Height: 5'8" SpO2: 95% 09/04/2015 Blood Pressure 1: 136/72 Code : 8480-6 BMI: 23.1 Code : 11206-6 Heart Rate 1 : 97 bpm Height: 5'8" SpO2: 98% Weight: 149 lbs 8 oz 2015 Blood Pressure 1: 144/76 Code : 8480-6 BMI: 22.8 Code : 36335-7 Heart Rate 1 : 75 bpm Height: 5'8" SpO2: 97% Weight: 148 lbs 07/18/2015 Blood Pressure 1: 132/60 Code : 8480-6 BMI: 23.1 Code : 68676-7 Heart Rate 1 : 78 bpm Height: 5'8" Weight: 150 lbs 07/02/2015 Blood Pressure 1: 156/86 Code : 8480-6 BMI: 23.0 Code : 74672-8 Heart Rate 1 : 75 bpm Height: 5'8" SpO2: 99% Weight: 149 lbs 05/31/2015 Blood Pressure 1: 136/72 Code : 8480-6 BMI: 22.7 Code : 77270-3 Heart Rate 1 : 85 bpm Height: 5'8" SpO2: 97% Weight: 147 lbs 04/09/2015 Blood Pressure 1: 118/60 Code : 8480-6 BMI: 22.7 Code : 16380-8 Heart Rate 1 : 72 bpm Height: 5'8" SpO2: 95% Weight: 147 lbs 02/08/2015 Blood Pressure 1: 138/76 Code : 8480-6 BMI: 23.1 Code : 50967-6 Heart Rate 1 : 80 bpm Height: 5'8" SpO2: 98% Weight: 150 lbs 12/11/2014 Blood Pressure 1: 120/74 Code : 8480-6 BMI: 22.1 Code : 44185-9 Heart Rate 1 : 92 bpm Height: 5'8" SpO2: 96% Weight: 143 lbs 11/09/2014 Blood Pressure 1: 100/64 Code : 8480-6 BMI: 21.6 Code : 27204-2 Heart Rate 1 : 88 bpm Height: 5'8" Weight: 140 lbs 10/23/2014 Blood Pressure 1: 138/82 Code : 8480-6 BMI: 23.6 Code : 89137-7 Heart Rate 1 : 86 bpm Height: 5'8" Weight: 153 lbs 10/16/2014 Blood Pressure 1: 128/60 Code : 8480-6 BMI: 23.3 Code : 01672-6 Heart Rate 1 : 91 bpm Height: 5'8" SpO2: 99% Weight: 151 lbs 10/09/2014 Blood Pressure 1: 120/60 Code : 8480-6 BMI: 23.0 Code : 22370-9 Heart Rate 1 : 96 bpm Height: 5'8" SpO2: 97% Weight: 149 lbs 09/14/2014 Blood Pressure 1: 132/72 Code : 8480-6 BMI: 22.1 Code : 95658-5 Heart Rate 1 : 84 bpm Height: 5'8" SpO2: 97% Weight: 143 lbs 08/11/2014 Blood Pressure 1: 134/74 Code : 8480-6 BMI: 24.1 Code : 77706-0 Heart Rate 1 : 88 bpm Height: 5'8" Weight: 156 lbs 07/12/2014 Blood Pressure 1: 122/62 Code : 8480-6 BMI: 22.7 Code : 94824-1 Heart Rate 1 : 76 bpm Height: [...] Dr. Blancas in [place] and Neurosurgeon in [place] in the past neck pain Significant Medical Conditions spinal stenosis 07/12/2014 has osteoarthritis Advance Directives No Advance Directive data Encounters Encounter Performer Location Codes Date ([id number]) [id number] EST. PATIENT, LEVEL IV Diagnosis: Essential (primary) hypertension[ICD10: I10] Diagnosis: Hypo-osmolality and hyponatremia[ICD10: E87.1] Diagnosis: Chronic pain syndrome[ICD10: G89.4] [facility] CPT-4: 74762 03/03/2018 ([id number]) 27247 EST. PATIENT, LEVEL III Diagnosis: Cough[ICD10: R05] Diagnosis: Acute bronchitis, unspecified[ICD10: J20.9] Diagnosis: Chronic obstructive pulmonary disease, unspecified[ICD10: J44.9] [facility] CPT-4: 34087 02/12/2018 ([id number]) 83629 EST. PATIENT, LEVEL IV Diagnosis: Chronic pain syndrome[ICD10: G89.4] Diagnosis: Cough[ICD10: R05] Diagnosis: Diarrhea, unspecified[ICD10: R19.7] Diagnosis: Generalized edema[ICD10: R60.1] Ila Silva MD, [facility] CPT-4: 95398 02/09/2018 ([id number]) 96008 EST. PATIENT, LEVEL III Diagnosis: Generalized edema[ICD10: R60.1] Diagnosis: Lymphedema, not elsewhere classified[ICD10: I89.0] Araceli Silva MD, [facility] CPT-4: 46992 01/14/2018 ([id number]) 22866 EST. PATIENT, LEVEL IV Diagnosis: Essential (primary) hypertension[ICD10: I10] Diagnosis: Generalized edema[ICD10: R60.1] Diagnosis: Chronic pain syndrome[ICD10: G89.4] Araceli Silva MD, [facility] CPT-4: 09851 12/24/2017 ([id number]) 73629 EST. PATIENT, LEVEL III Diagnosis: Lymphedema, not elsewhere classified[ICD10: I89.0] Araceli Silva MD, [facility] CPT-4: 64594 11/30/2017 ([id number]) 46276 EST. PATIENT, LEVEL III Diagnosis: Generalized edema[ICD10: R60.1] Ila Silva MD, [facility] CPT-4: 40055 11/27/2017 ([id number]) 25215 EST. PATIENT, LEVEL IV Diagnosis: Localized edema[ICD10: [...] left shoulder[ICD10: M25.512] Araceli Silva MD, [facility] CPT-4: 86443 11/10/2017 ([id number]) 88898 EST. PATIENT, LEVEL IV Diagnosis: Localized edema[ICD10: [...] left shoulder[ICD10: M25.512] Araceli Silva MD, [facility] CPT-4: 84920 10/29/2017 ([id number]) 81644 EST. PATIENT, LEVEL IV Diagnosis: Essential (primary) [...] Localized edema[ICD10: R60.0] Araceli Silva MD, [facility] CPT- 4: 42718 10/20/2017 ([id number]) 09902 EST. 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 PATIENT, LEVEL IV Diagnosis: Primary osteoarthritis, left shoulder[ICD10: M19.012] Diagnosis: Pain in left shoulder[ICD10: M25.512] Diagnosis: Lymphedema, not elsewhere classified[ICD10: I89.0] Diagnosis: Localized edema[ICD10: R60.0] Diagnosis: Chronic atrial fibrillation[ICD10: I48.2] Araceli Silva MD, [facility] CPT-4: 23372 09/15/2017 ([id number]) 86308 EST. PATIENT, LEVEL III Diagnosis: Primary osteoarthritis, left shoulder[ICD10: M19.012] Diagnosis: Pain in left shoulder[ICD10: M25.512] Diagnosis: Hemarthrosis, left shoulder[ICD10: M25.012] Araceli Silva MD, [facility] CPT-4: 82437 08/31/2017 ([id number]) 79684 EST. PATIENT, LEVEL IV Diagnosis: Essential (primary) hypertension[ICD10: I10] Diagnosis: Chronic pain syndrome[ICD10: G89.4] Diagnosis: Primary osteoarthritis, right shoulder[ICD10: M19.011] Diagnosis: Primary osteoarthritis, left shoulder[ICD10: M19.012] Diagnosis: Hemarthrosis, left shoulder[ICD10: M25.012] Diagnosis: Hemarthrosis, right shoulder[ICD10: M25.011] Diagnosis: Pain in right shoulder[ICD10: M25.511] Diagnosis: Pain in left shoulder[ICD10: M25.512] Araceli Silva MD, [facility] CPT-4: 37923 08/05/2017 ([id number]) 61720 EST. PATIENT, LEVEL III Diagnosis: Localized edema[ICD10: R60.0] Araceli Silva MD, [facility] CPT- 4: 93548 07/23/2017 ([id number]) 11183 EST. PATIENT, LEVEL III Diagnosis: Rheumatoid arthritis without rheumatoid factor, left shoulder[ICD10: M06.012] Diagnosis: Hemarthrosis, left shoulder[ICD10: M25.012] Araceli Silva MD, [facility] CPT-4: 37673 07/09/2017 ([id number] 54512 EST. PATIENT, LEVEL III Diagnosis: Chronic pain syndrome[ICD10: G89.4] Diagnosis: Rheumatoid arthritis without rheumatoid factor, left shoulder[ICD10: M06.012] Diagnosis: Hemarthrosis, left shoulder[ICD10: M25.012] Diagnosis: Lymphedema, not elsewhere classified[ICD10: I89.0] Araceli Silva MD, [facility] CPT-4: 20865 07/01/2017 ([id number]) 58259 EST. PATIENT, LEVEL III Diagnosis: Chronic pain syndrome[ICD10: G89.4] Araceli Silva MD, [facility] CPT-4: 05825 06/24/2017 ([id number]) 04886 EST. 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 PATIENT, LEVEL III Diagnosis: Pain in left shoulder[ICD10: M25.512] Diagnosis: Hemarthrosis, right shoulder[ICD10: M25.011] Diagnosis: Hemarthrosis, left shoulder[ICD10: M25.012] Maricel Silva MD, [facility] CPT-4: 09497 06/01/2017 [id number]) 36716 EST. PATIENT, LEVEL II Diagnosis: Pain in right shoulder[ICD10: M25.511] Diagnosis: Hemarthrosis, right shoulder[ICD10: M25.011] Araceli Silva MD, [facility] CPT-4: 82340 04/02/2017 [id number]) 52316 EST. 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 PATIENT, LEVEL IV Diagnosis: Primary osteoarthritis, right shoulder[ICD10: M19.011] Diagnosis: Chronic pain syndrome[ICD10: G89.4] Diagnosis: Essential (primary) hypertension[ICD10: I10] Diagnosis: Hypomagnesemia[ICD10: E83.42] Araceli Silva MD, [facility] CPT- 4: 97656 01/08/2017 ([id number]) 04349 EST. PATIENT, LEVEL IV Diagnosis: Encounter for immunization[ICD10: Z23] Diagnosis: Chronic pain syndrome[ICD10: G89.4] Diagnosis: Essential (primary) hypertension[ICD10: I10] Araceli Silva MD, [facility] CPT-4: 31533 12/08/2016 ([id number]) 82213 EST. PATIENT, LEVEL III Diagnosis: Urge incontinence[ICD10: N39.41] Diagnosis: Chronic pain syndrome[ICD10: G89.4] Diagnosis: Lymphedema, not elsewhere classified[ICD10: I89.0] Araceli Silva MD, [facility] CPT-4: 35536 11/17/2016 [id number] EST. 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 PATIENT, LEVEL IV Diagnosis: Essential (primary) hypertension[ICD10: I10] Diagnosis: Other chronic pain[ICD10: G89.29] Diagnosis: Localized edema[ICD10: R60.0] Diagnosis: Urge incontinence[ICD10: N39.41] Araceli Silva MD, [facility] CPT-4: 57469 11/05/2016 ([id number]) 01362 EST. 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 PATIENT, LEVEL III Diagnosis: Hemarthrosis, right shoulder[ICD10: M25.011] Diagnosis: Pain in right shoulder[ICD10: M25.511] Ila Silva MD, [facility] CPT-4: 47068 10/02/2016 [id number] EST. PATIENT, LEVEL II Diagnosis: Low back pain[ICD10: M54.5] Diagnosis: Sacroiliitis, not elsewhere classified[ICD10: M46.1] Ila Silva MD, [facility] CPT-4: 47210 09/12/2016 ([id number]) [id number] EST. PATIENT, LEVEL III Diagnosis: Hemarthrosis, right shoulder[ICD10: M25.011] Diagnosis: Other chronic pain[ICD10: G89.29] Araceli Silva MD, [facility] CPT-4: 73651 09/08/2016 ([id number]) 78873 EST. PATIENT, LEVEL IV Diagnosis: Other iron deficiency anemias[ICD10: D50.8] Diagnosis: Vitamin D deficiency, unspecified[ICD10: E55.9] Diagnosis: Hypomagnesemia[ICD10: E83.42] Araceli Silva MD, [facility] CPT- 4: 36706 08/26/2016 ([id number]) 12141 EST. PATIENT, LEVEL III Diagnosis: Localized edema[ICD10: R60.0] Araceli Silva MD, [facility] CPT- 4: 51521 08/18/2016 ([id number]) 16334 EST. 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 PATIENT, LEVEL IV Diagnosis: Pain in left shoulder[ICD10: M25.512] Diagnosis: Nocturia[ICD10: R35.1] Maricel Silva MD, [facility] CPT-4: 64817 07/14/2016 54082 EST. PATIENT, LEVEL III Diagnosis: Pain in left shoulder[ICD10: M25.512] Maricel Silva MD, [facility] CPT-4: 61653 07/04/2016 ([id number]) 81421 EST. 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 PATIENT, LEVEL II Diagnosis: Insect bite (nonvenomous) of right upper arm, initial encounter[ICD10 : S40.861A] Ila Silva MD, [facility] CPT-4: 34236 11/01/2015 ([id number]) 35188 EST. 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 PATIENT, LEVEL III Diagnosis: Contusion of left upper arm, subsequent encounter[ICD10: S40.022D] Araceli Silva MD, [facility] CPT-4: 91999 2015 84856 EST. PATIENT, LEVEL III Diagnosis: Cellulitis of left upper limb[ICD10: L03.114] Maricel Silva MD, [facility] CPT-4: 60746 07/18/2015 ([id number]) 71023 EST. 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 PATIENT, LEVEL IV Diagnosis: Essential (primary) hypertension[ICD10: I10] Diagnosis: Vitamin D deficiency, unspecified[ICD10: E55.9] Diagnosis: Mixed hyperlipidemia[ICD10: E78.2] Diagnosis: Age-related osteoporosis with current pathological fracture, unspecified site, sequela[ICD10: M80.00XS] Araceli Silva MD, [facility] CPT- 4: 19902 02/08/2015 ([id number]) 40770 EST. PATIENT, LEVEL IV Diagnosis: Essential (primary) hypertension[ICD10: I10] Diagnosis: Localized edema[ICD10: R60.0] Diagnosis: Primary osteoarthritis, unspecified site[ICD10: M19.91] Araceli Silva MD, [facility] CPT-4: 84978 12/11/2014 ([id number]) 83315 EST. PATIENT, LEVEL III Diagnosis: EDEMA[ICD9: 782.3] Diagnosis: ESSENTIAL HYPERTENSION[ICD9: 401.9] Araceli Silva MD, [facility] CPT-4: 37696 11/09/2014 ([id number]) 55612 EST. PATIENT, LEVEL III Diagnosis: Leg pain[ICD9: 729.5] Diagnosis: Ulcer of toe[ICD9: 707.15] Araceli Silva MD [facility] CPT- 4: 32704 10/23/2014 ([id number]) 04821 EST. PATIENT, LEVEL III Diagnosis: Ulcer of toe[ICD9: 707.15] Araceli Silva MD [facility] CPT- 4: 15517 10/16/2014 58445 EST. PATIENT, LEVEL II Diagnosis: Ulcer of toe[ICD9: 707.15] Ila Brent Silva MD, [facility] CPT-4: 31933 10/09/2014 ([id number]) 98944 EST. PATIENT, LEVEL III Diagnosis: EDEMA[ICD9: 782.3] Araceli Silva MD, [facility] CPT-4: 89471 09/14/2014 ([id number]) 94178 EST. PATIENT, LEVEL IV Diagnosis: EDEMA[ICD9: 782.3] Diagnosis: ESSENTIAL HYPERTENSION[ICD9: 401.9] Araceli Silva MD, [facility] CPT-4: 21032 08/11/2014 ([id number]) OFFICE VISIT, NEW - LEVEL 4 Diagnosis: HYPERLIPIDEMIA[ICD9: 272.4] Diagnosis: VITAMIN D DEFICIENCY[ICD9: 268.9] Diagnosis: Osteoporosis[ICD9: 733.00] Diagnosis: Esophageal reflux[ICD9: 530.81] Diagnosis: Chronic pain[ICD9: 338.29] Araceli Silva MD, [facility] CPT- 4: 14380 07/12/2014 Plan of Care Planned Activity Notes [...] fentanyl 03/03/2018 Appointment: Araceli Silva WPtel: [phone] [facility] (15 min) Moderate 03/03/2018 [...] - [place] [facility] [place] Appointment: Ila Kennedy WPtel: [phone] [phone] (30 min) Complex 02/12/2018 Patient Education: Patient Medication Summary Completed 02/12/2018 Visit Plan: Chronic Pain Syndrome - pt has chronic pain - has been maintained on current medications, has not sought out other medications , only uses PRN pain medications as directed, and understands the consequences of over-medication. Avorx-hryluvgsol-hvcucmtt with lasix/metolazone -if swelling /weight increase, okay to increase metolazone to daily as directed Cough- okay for robitussin dm Diarrhea- rx for lomotil written and instructed on use-follow up in 3 weeks, sooner if needed. Call with any concerns. 02/09/2018 Appointment: Ila Kennedy WPtel: [phone] [phone] [place] (30 min) Complex 02/09/2018 Patient Education: Patient Medication Summary Completed 02/09/2018 Appointment: Araceli Silva WPtel: [phone] [facility] (15 min) Moderate 02/04/2018 Visit Plan: [...] over-medication. 01/14/2018 Appointment: Araceli Silva WPtel: [phone] [facility] (15 min) Moderate 01/14/2018 Patient Education: Patient [...] oxycodone scheduled. 12/24/2017 Appointment: Araceli Silva [facility]Ptel: [facility] ([facility] Complex 12/24/2017 Patient Education: [...] and output. 11/30/2017 Appointment: Araceli Silva WPtel: [facility] (15 min) Moderate 11/30/2017 Patient Education: [...] of over-medication. 11/10/2017 Appointment: Araceli Silva WPtel: [address] [place] [address] (15 min) Moderate 11/10/2017 Patient Education: Patient [...] hands/fingers. We will contact [facility] [employer] in [place] for paperwork regarding the scooter. 10/29/2017 Appointment: [phone] (15 min) Moderate 10/29/2017 Patient Education: [...] time. 10/20/2017 Appointment: [phone] (30 min) Complex 10/20/2017 Patient Education: [...] today. 09/29/2017 Appointment: [phone] (15 min) Moderate 09/29/2017 Patient Education: Patient [...] Completed 08/21/2017 Appointment: Araceli Silva WPtel: [phone] [facility] (15 min) Moderate 08/20/2017 Visit Plan: Hemarthrosis shoulders - 250mL from left shoulder and 100mL from right shoulder with 1ml kenalog injected into right and left shoulders - Left and right shoulder pain and swelling, swelling into arms and left breast -pt to continue with use of compression sleeves. [id number] sep 2018 bristol 2ml kenalog 08/12/2017 Appointment: Araceli Silva WPtel: [phone] [facility] (15 min) Moderate 08/12/2017 Patient Education: Patient [...] edema. 08/05/2017 Appointment: [phone] (15 min) Moderate 08/05/2017 Patient Education: [...] edema. 07/23/2017 Appointment: [facility] Silva [phone] [place] (15 min) Moderate 07/23/2017 Patient [...] symptoms. 07/09/2017 Appointment: [phone] (15 min) Moderate 07/09/2017 Patient Education: Patient [...] monitor symptoms. 07/01/2017 Appointment: Araceli Silva WPtel: [facility] [place] (15 min) Moderate 07/01/2017 Patient Education: Patient Medication Summary Completed 07/01/2017 Visit Plan: Chronic Pain Syndrome - pt has chronic pain - has been maintained on current medications, has not sought out other medications , only uses PRN pain medications as directed, and understands the consequences of over-medication. 06/24/2017 Appointment: Araceli Silva WPtel: [facility] [place] (15 min) Moderate 06/24/2017 Patient Education: [...] peripheral edema. 06/17/2017 Appointment: [facility] Silva [facility]Ptel: [phone] [facility] [place] (30 min) Complex 06/17/2017 Patient Education: Patient Medication Summary Completed 06/17/2017 Appointment: [facility] Silva [phone] [place] (15 min) Moderate 06/08/2017 Care Plan: Referral Order SNOMED-CT : [id number] Pending 06/02/2017 Visit Plan: Left and right [...] peripheral edema. 06/01/2017 App[facility]ment: [phone] [place] ([facility] min) Complex 06/01/2017 Patient [...] from shoulder 04/02/2017 Appointment: Araceli Silva WPtel: [phone] [facility] [place] (15 min) Moderate [...] upset. 03/12/2017 Appointment: [phone] [place] (15 min) Moderate 03/12/2017 Patient [...] check ROMIE. 01/08/2017 Appointment: Araceli Silva WPtel: [facility] (15 min) Moderate 01/08/2017 Patient Education: [...] with Remicaide. 12/08/2016 Appointment: Araceli Silva WPtel: [phone] [facility] (15 min) Moderate 12/08/2016 [...] for now 11/17/2016 Appointment: [facility] Silva [phone] (15 min) Moderate 11/17/2016 Patient Education: [...] Appointment: Maricel Gee WPtel: [facility] (30 min) Complex 11/10/2016 Patient Education: Patient [...] steroids, immunosuppression. 11/05/2016 Appointment: Araceli Silva WPtel: [facility] (15 min) Moderate 11/05/2016 [...] Appointment: Araceli Silva WPtel: [facility] (15 min) Moderate 10/07/2016 Patient Education: Patient Medication Summary Completed 10/07/2016 Care Plan: Referral Order SNOMED-CT : [id number] Pending 10/07/2016 Care Plan: Referral Order SNOMED-CT : [id number] Pending 10/07/2016 Visit Plan: Hemarthrosis -right shoulder-only able to drain 5ml of bloody drainage-unable to give oral steroids due to recent GI bleed -will give kenalog injection today in the office-discussed getting OSMO patch 10/02/2016 Appointment: Ila Kennedy WPtel: [address] [place], [place] [phone] [place] (30 min) Complex 10/02/2016 Patient Education: Patient Medication Summary Completed 10/02/2016 Appointment: Araceli Silva WPtel: [facility] (15 min) Moderate 09/23/2016 Appointment: Araceli Silva WPtel: [address] [place], [place] [id number] (15 min) Moderate 09/17/2016 Visit Plan: Sacroiliitis - back exercises discussed with the patient, pt to continue with anti-inflammatories. Pt is to call if the symptoms do not improve or if they worsen. Kenalog injection today in the office. 09/12/2016 Appointment: Ila Kennedy WPtel: [phone] (15 min) Moderate 09/12/2016 Patient Education: Patient Medication Summary Completed 09/12/2016 Visit Plan: Hemarthrosis - drain right shoulder. Injection of kenalog 1mL - 40mg - [employer] - lot #[id number] , expires oct 2017 Chronic Pain Syndrome [...] of over-medication. 09/08/2016 Appointment: Araceli Silva WPtel: [address] [place], [place] [id number] [place] (15 min) Moderate 09/08/2016 Patient Education: [...] Appointment: Araceli Silva WPtel: [facility] (15 min) Moderate 08/26/2016 Patient Education: [...] Summary Completed 08/18/2016 Appointment: Araceli Silva WPtel: [facility] (15 min) Moderate 08/13/2016 Appointment: Araceli Silva WPtel: [address] [place], [place] [id number] (15 min) Moderate 08/06/2016 Visit [...] Appointment: Araceli Silva WPtel: [facility] (15 min) Moderate 07/30/2016 [...] Appointment: Maricel Gee WPtel: [facility] (30 min) Complex 07/14/2016 Patient Education: Patient [...] Appointment: Maricel Gee WPtel: [facility] (30 min) Complex 07/04/2016 Patient Education: Patient [...] over- medication. 06/26/2016 Appointment: Araceli Silva WPtel: [facility] (15 min) Moderate 06/26/2016 [...] of over-medication. 05/28/2016 Appointment: Araceli Silva WPtel: [facility] (15 min) Moderate 05/28/2016 Patient Education: Patient Medication Summary Completed 05/28/2016 Patient Education: Hypertension Completed 05/28/2016 Appointment: [phone] [place] (15 min) Moderate 05/12/2016 Appointment: Araceli Silva WPtel: [facility] (15 min) Moderate 04/15/2016 Appointment: [facility] Silva [facility]Ptel: [phone] (30 min) Complex 03/25/2016 Visit Plan: [...] the premarin. 03/18/2016 Appointment: Araceli Silva WPtel: [facility] (30 min) Complex 03/18/2016 Patient Education: Patient Medication Summary Completed 03/18/2016 Appointment: Araceli Silva WPtel: [facility] (15 min) Moderate 02/19/2016 Visit Plan: [...] of over-medication. 01/29/2016 Appointment: Araceli Silva WPtel: [phone] [facility] [place] (15 min) Moderate 01/29/2016 Patient Education: Patient Medication Summary Completed 01/29/2016 Visit Plan: Discussed MRI of the neck - pt is interested in doing this - however, not prior to changing her medication first to see if this helps her pain 01/01/2016 Appointment: Araceli Silva WPtel: [phone] [facility] [place] (15 min) Moderate 01/01/2016 Patient Education: Patient Medication Summary Completed 01/01/2016 Patient Education: Hypertension Completed 01/01/2016 Appointment: Araceli Silva WPtel: [phone] [facility] [place] (15 min) Moderate 12/03/2015 Visit [...] or nonhealing. 11/01/2015 Appointment: Ila Kennedy WPtel: [phone] [phone] [place] (15 min) Moderate 11/01/2015 Patient Education: Patient Medication Summary Completed 11/01/2015 Visit Plan: Chronic Pain Syndrome - pt has chronic pain - has been maintained on current medications, has not sought out other medications , only uses PRN pain medications as directed, and understands the consequences of over-medication. Muscle spasms - recommended muscle rub. 09/04/2015 Appointment: Araceli Silva WPtel: [phone] [facility] (15 min) Moderate 09/04/2015 Patient Education: Patient Medication Summary Completed 09/04/2015 Visit Plan: Ecchymosis/hematoma - improving - discussed natural progression of hematomas - watchful waiting. 2015 Appointment: Araceli Silva WPtel: [phone] [facility] (15 min) Moderate 2015 Patient Education: Patient Medication Summary Completed 2015 Visit Plan: Cellulitis - continue with oral antibiotics as previously directed, return to clinic as previously directed, call for acute change in symptoms, worsening redness, warmth, discharge. 07/18/2015 Appointment: Ila Kennedy WPtel: [phone] [phone] [place] (30 min) Complex 07/18/2015 Patient Education: [...] center/surgery center. 07/02/2015 Appointment: Araceli Silva WPtel: [phone] [facility] (15 min) Moderate 07/02/2015 Patient Education: [...] removal process. 04/09/2015 Appointment: Araceli Silva WPtel: [address] [place] [address] (15 min) Moderate 04/09/2015 Patient Education: Patient [...] supplementation. 02/08/2015 Appointment: [phone] (15 min) Moderate 02/08/2015 Patient Education: [...] the evening. 12/11/2014 Appointment: Araceli Silva WPtel: [facility] (15 min) Moderate 12/11/2014 [...] Appointment: Araceli Silva WPtel: [facility] (15 min) Moderate 11/09/2014 Patient Education: Patient Medication Summary Completed 11/09/2014 Patient Education: Hypertension Completed 11/09/2014 Visit Plan: Leg pain/cellulitis of leg - start on the doxycycline twice daily - take this x 2 weeks, if the symptoms in your leg/ thigh are not completely resolved, there is a refill that is available. start on a probiotic one pill daily ([employer] or I-Stand) this will help prevent the development of a bad type of diarrhea that can occur when taking antibiotics. Ulcer of toe - improving. 10/23/2014 Appointment: Araceli Silva WPtel: [facility] (15 min) Moderate 10/23/2014 Patient Education: Patient Medication Summary Completed 10/23/2014 Visit Plan: Ulcer - keep lesion covered, antibiotic ointment to be used, monitor - call if redness increases or starts streaking up the foot. 10/16/2014 Appointment: Araceli Silva WPtel: [facility] [place] (15 min) Moderate 10/16/2014 Patient Education: [...] peripheral edema. 09/14/2014 Appointment: Araceli Silva WPtel: [address] [place] [address] Follow up 09/14/2014 Patient Education: Patient Medication [...] medication. 07/12/2014 Appointment: [facility] Silva [facility]Ptel[phone] [place] (S) New Patient 07/12/2014 Patient Education: Patient Medication Summary Completed 07/12/2014 Patient Education: Hypertension Completed 07/12/2014 Referral: Dr Virgen Referral Completed Referral: External, Ordering Provider Referral Completed Referral: [facility] WPtel: Referral Initiated Instructions Comment . Chronic neck pain, arthritis, right arm [...] in blood pressure readings at home. . Tick Bite - pt given script for treatment of infected tick bite, call for symptoms of worsening infection or nonhealing. . Hemarthrosis - pt was prepped and [...] start on a probiotic one pill daily ([employer] or I-Stand) this will help prevent the development of a bad type of diarrhea that can occur when taking antibiotics. . Leg pain/cellulitis of leg - start on the doxycycline twice daily - take this x 2 weeks, if the symptoms in your leg/thigh are not completely resolved, there is a refill that is available. start on a probiotic one pill daily ([employer] or I-Stand) this will help prevent the development of a bad type of diarrhea that can occur when taking antibiotics. Ulcer of toe - improving. . Hemarthrosis - drain right shoulder. Injection of kenalog 1mL - 40mg - [employer] - lot #[id number] , expires oct 2017 Chronic Pain Syndrome [...] getting OSMO patch . Hemarthrosis shoulders - 70mL from left [...] symptoms of worsening infection or nonhealing. . Chronic Pain Syndrome - pt has [...] 6 small meals during the daytime. . Left shoulder pain - improving - [...] prednisone to help decrease stomach upset. . Hypertension - well controlled - continue [...] and understands the consequences of over-medication. . Edema-worsening- pt has persistent worsening of her edema - her son-in-law is with her today- we have discussed admission to the hospital. I have recommended admission to inpatient rehab - the plan is for admission to inpatient rehab on of this week. I will order IV lasix drip and closely monitor her intake and output. . Hypertension - well controlled - continue [...] worsening. Edema - improved. . Hemarthrosis - pt was prepped and [...] blood from shoulder . Hemarthrosis shoulders - 175mL from left [...] further attempt to reduce peripheral edema. . Iron deficiency Anemia - recommended pt [...] patient stabilized during the removal process. . Chronic Pain Syndrome - pt has chronic pain - has been maintained on current medications, has not sought out other medications, only uses PRN pain medications as directed, and understands the consequences of over- medication. . Fatigue and Anemia - recommended stat labs - CBC showed Hgb of 8.3 - iron panel added to blood in labs - will wait on those reports - but will have pt get a blood transfusion tomorrow. Will possibly get pt in for iron transfusion. Edema - increase lasix x 10 days to bid, then use prn swelling. Check magnesium level boppy pillow - in the maternity section [...] hands/fingers. We will contact [facility] [employer] in [place] for paperwork regarding the scooter. take lasix daily x 10 days then [...] of breath -will [facility] rx to [facility] next mammogram will be due in Oct. [...] understanding of plan. . Hemarthrosis shoulders - 100mL from left [...] stable on fentanyl - monitor symptoms. . Hemarthrosis shoulders - 250mL from left shoulder and 100mL from right shoulder with 1ml kenalog injected into right and left shoulders - Left and right shoulder pain and swelling, swelling into arms and left breast -pt to continue with use of compression sleeves. [id number] sep 2018 bristol 2ml kenalog . Edema/Lymphedema [...] abx. Patient verbalized understanding of plan. . Urge Incontinence - continue with myrbetric 50mg dose given to patient. Lymphedema - order juan daniel to do a lymphedema fitting on her right arm - dx lymphedema Chronic pain - rx for fentanyl 75mcg patches and 25mcg patches - rx for oxycontin 30mg 1/2 pill q6 hours #120. - hold oxycontin 10mg dose for now . Hyperlipidemia - pt has been counseled [...] consequences of over-medication. . Hemarthrosis shoulders - 120mL from left [...] directed, and understands the consequences of over-medication. Xzevi-[id number] with lasix/metolazone -if swelling/weight increase, okay to [...] office. two old goats muscle rub from [employer] [facility]. . Chronic Pain Syndrome [...]
--- OUTSIDE RECORDS SUMMARY | 2018-06-03 17:22 | XMS REPORT | CCD ---
Author Author [facility] Organization [facility] Address [address] [place] [address] Phone Care Team Providers Care Methods And Procedures Analyst Name Role Phone PP Unavailable CCM Unavailable Summary Purpose Interface Exchange Insurance Providers Payer name Policy type / Coverage type Covered constitution party ID Effective Begin Date Effective End Date [place] [employer] Medicare Part B [id number] 2017 Unknown AETNA Medicare Part B [id number] Unknown Family history Father Diagnosis Age At [...] Unknown Retired 07/12/[address]: 0463864 Quit over 10 years ago 1967 07/12/2014 [...] Fill Instructions Lasix 40 mg tablet RxNorm: 165214 Tablet(s) PO TAKE 1 TABLET BY MOUTH TWICE DAILY 03/04/2018 No Stop Date Active fentanyl 100 mcg/hr transdermal patch RxNorm: 903817 1 Patch TD Q72H use with 25mcg/hr patch 03/03/2018 04/01/2018 Active potassium chloride ER 10 mEq capsule,extended release RxNorm: 324287 2 Capsule(s) PO TID 03/03/2018 06/30/2018 Active albuterol sulfate 2.5 mg/3 mL (0.083 %) solution for nebulization RxNorm: 525358 3 Milliliter(s) INH Q4 PRN 02/18/2018 No Stop Date Active cefdinir 300 mg capsule RxNorm: 891608 1 Capsule(s) PO BID 02/24/2018 Inactive cefdinir 300 mg capsule RxNorm: 398960 1 Capsule(s) PO BID 02/17/2018 Inactive Flonase Allergy Relief 50 mcg/actuation nasal spray, suspension RxNorm: 3353506 2 [place] NASAL daily 02/12/20182017 Inactive Zithromax Z-Humberto 250 mg tablet RxNorm: 492216 1 Tablet(s) PO UD 02/12/2018 02/16/2018 Inactive Lomotil 2.5 mg-0.025 mg tablet RxNorm: 4529379 1 Tablet(s) PO BID PRN 02/09/2018 No Stop Date Active fentanyl 25 mcg/hr transdermal patch RxNorm: 417051 1 Patch TD Q72H use with 100mcg patch for a total of 125mcg daily 02/09/2018 03/10/2018 Active oxycodone 30 mg tablet RxNorm: 9723220 1/2 Tablet(s) PO Q6 03/14/2018 Active metolazone 10 mg tablet RxNorm: 055444 1 Tablet(s) PO QAM as needed uncontrolled edema 01/14/2018 03/14/2018 Active fentanyl 100 mcg/hr transdermal patch RxNorm: 614396 1 Patch TD Q72H use with 25mcg/hr patch 01/14/2018 02/12/2018 Inactive fentanyl 25 mcg/hr transdermal patch RxNorm: 114556 1 Patch TD Q72H use with 100mcg patch for a total of 125mcg daily 01/14/2018 02/08/2018 Inactive metolazone 10 mg tablet RxNorm: 229282 1 Tablet(s) PO every other day as needed uncontrolled edema 01/07/2018 01/13/2018 Inactive metolazone 10 mg tablet RxNorm: 549287 1 Tablet(s) PO every other day as needed uncontrolled edema 01/07/2018 01/06/2018 Inactive Cipro 500 mg tablet RxNorm: 516847 1 Tablet(s) PO BID 201701/05/2018 Inactive Cipro 500 mg tablet RxNorm: 094162 1 Tablet(s) PO BID 201701/15/2018 Inactive Cardizem CD 360 mg capsule,extended release RxNorm: 975713 1 Capsule(s) PO daily 01/05/2018 05/04/2018 Active potassium chloride ER 10 mEq tablet,extended release(part/ cryst) RxNorm: 2244208 2 Capsule(s) PO TID when taking lasix 01/05/2018 05/04/2018 Active potassium chloride ER 10 mEq capsule,extended release RxNorm: 567747 Capsule(s) TAKE 1 CAPSULE BY MOUTH TWICE DAILY WHEN TAKING LASIX (FUROSEMIDE) 11/27/2017 03/02/2018 Inactive potassium chloride ER 10 mEq capsule,extended release RxNorm: 607839 Capsule(s) TAKE 1 CAPSULE BY MOUTH TWICE DAILY WHEN TAKING LASIX (FUROSEMIDE) 11/27/2017 11/26/2017 Inactive fentanyl 25 mcg/hr transdermal patch RxNorm: 788857 1 Patch TD Q72H use with 100mcg patch for a total of 125mcg daily 11/27/2017 12/26/2017 Inactive bumetanide 0.5 mg tablet RxNorm: 179249 1 Tablet(s) PO daily 12/23/2017 Inactive in the afternoon x 3 days then as needed per Dr Silva fentanyl 100 mcg/hr transdermal patch RxNorm: 450379 1 Patch TD Q72H use with 25mcg/hr patch 11/27/2017 12/26/2017 Inactive oxycodone 30 mg tablet RxNorm: 1849310 1/2 Tablet(s) PO Q6 12/27/2017 Inactive fentanyl 100 mcg/hr transdermal patch RxNorm: 165251 1 Patch TD Q72H use with 25mcg/hr patch 10/29/2017 11/26/2017 Inactive Lasix 20 mg tablet RxNorm: 209171 TAKE 1 TABLET BY MOUTH TWICE DAILY 10/29/2017 03/03/2018 Inactive fentanyl 25 mcg/hr transdermal patch RxNorm: 828685 1 Patch TD Q72H use with 100mcg patch for a total of 125mcg daily 10/29/2017 11/26/2017 Inactive pantoprazole 40 mg tablet,delayed release RxNorm: 185362 Tablet(s) Take 1 tablet by mouth daily 10/21/2017 04/18/2018 Active - Ref: [id number] potassium chloride ER 10 mEq capsule,extended release RxNorm: 871074 TAKE 1 CAPSULE BY MOUTH TWICE DAILY WHEN TAKING LASIX (FUROSEMIDE) 10/09/2017 11/26/2017 Inactive fentanyl 25 mcg/hr transdermal patch RxNorm: 579003 1 Patch TD Q72H use with 100mcg patch for a total of 125mcg daily 10/01/2017 10/28/2017 Inactive fentanyl 100 mcg/hr transdermal patch RxNorm: 647797 1 Patch TD Q72H use with 25mcg/hr patch 10/01/2017 10/28/2017 Inactive potassium chloride ER 10 mEq tablet,extended release(part/ cryst) RxNorm: 3598540 1 Capsule(s) PO BID when taking lasix 09/22/2017 01/04/2018 Inactive fentanyl 100 mcg/hr transdermal patch RxNorm: 864751 1 Patch TD Q72H use with 25mcg/hr patch 08/31/2017 09/29/2017 Inactive Kenalog 40 mg/mL suspension for injection RxNorm: 6312216 1 Milliliter(s) Inj 08/31/2017 08/31/2017 Inactive fentanyl 25 mcg/hr transdermal patch RxNorm: 778869 1 Patch TD Q72H use with 100mcg patch for a total of 125mcg daily 08/31/2017 09/29/2017 Inactive oxycodone 30 mg tablet RxNorm: 2615378 1/2 Tablet(s) PO Q6 04/201710/28/2017 Inactive cyanocobalamin (vit B-12) 1,000 mcg/mL injection solution RxNorm: 279263 1 Milliliter(s) Inj monthly 08/21/201708/15 Active please provide her with syringe/needle for injection cyanocobalamin (vit B-12) 1,000 mcg/mL injection solution RxNorm: 180513 1 Milliliter(s) Inj monthly 08/21/201708/20 Inactive please provide her with syringe/needle for injection Kenalog 40 mg/mL suspension for injection RxNorm: 6724354 2 Milliliter(s) Inj 1mL in each shoulder 08/21/2017 08/21/2017 Inactive cyanocobalamin (vit B-12) 1,000 mcg/mL injection solution RxNorm: 998639 1 Milliliter(s) Inj monthly 08/21/201708/20 Inactive please provide her with syringe/needle for injection Kenalog 40 mg/mL suspension for injection RxNorm: 1493661 2 Milliliter(s) Inj UD 08/12/2017 08/12/2017 Inactive fentanyl 25 mcg/hr transdermal patch RxNorm: 918544 1 Patch TD Q72H use with 100mcg patch for a total of 125mcg daily 08/05/2017 08/30/2017 Inactive fentanyl 100 mcg/hr transdermal patch RxNorm: 214938 1 Patch TD Q72H use with 25mcg/hr patch 08/05/2017 08/30/2017 Inactive Kenalog 40 mg/mL suspension for injection RxNorm: 7028062 2 Milliliter(s) Inj 1mL per shoulder 08/05/2017 08/05/2017 Inactive clindamycin HCl 150 mg capsule RxNorm: 275016 1 Capsule(s) PO QID Dr Shultz prescribed 07/23/2017 07/29/2017 Inactive prednisone 5 mg tablet RxNorm: 073669 1 Tablet(s) PO daily 11/201707/03/2018 Active fentanyl 25 mcg/hr transdermal patch RxNorm: 992669 1 Patch TD Q72H use with 100mcg patch for a total of 125mcg daily 07/01/2017 07/30/2017 Inactive Lasix 20 mg tablet RxNorm: 051056 1 Tablet(s) PO BID 201710/28/2017 Inactive fentanyl 100 mcg/hr transdermal patch RxNorm: 707401 1 Patch TD Q72H use with 25mcg/hr patch 07/01/2017 07/30/2017 Inactive potassium chloride ER 10 mEq capsule,extended release RxNorm: 335681 1 Capsule(s) PO BID when taking lasix 07/01/20172017 Inactive oxycodone 30 mg tablet RxNorm: 3730351 1/2 Tablet(s) PO Q6 08/22/2017 Inactive fentanyl 100 mcg/hr transdermal patch RxNorm: 928239 1 Patch TD Q72H use with 25mcg/hr patch 05/07/2017 06/05/2017 Inactive fentanyl 25 mcg/hr transdermal patch RxNorm: 245061 1 Patch TD Q72H use with 100mcg patch for a total of 125mcg daily 05/07/2017 06/05/2017 Inactive fentanyl 100 mcg/hr transdermal patch RxNorm: 328457 1 Patch TD Q72H 04/08/2017 05/06/2017 Inactive fentanyl 25 mcg/hr transdermal patch RxNorm: 912332 1 Patch TD Q72H use with 100mcg patch for a total of 125mcg daily 04/08/2017 05/06/2017 Inactive Kenalog 40 mg/mL suspension for injection RxNorm: 3601601 1.5 Milliliter(s) Inj 04/02/2017 04/02/2017 Inactive fentanyl 100 mcg/hr transdermal patch RxNorm: 563333 1 Patch TD Q72H 03/12/2017 04/07/2017 Inactive fentanyl 25 mcg/hr transdermal patch RxNorm: 140463 1 Patch TD Q72H use with 100mcg patch for a total of 125mcg daily 03/12/2017 04/07/2017 Inactive oxycodone 30 mg tablet RxNorm: 2598733 1/2 Tablet(s) PO Q6 09/201704/07/2017 Inactive cyanocobalamin (vit B-12) 1,000 mcg/mL injection syringe RxNorm: 252384 1 Milliliter(s) Inj monthly 02/16/2017 No Stop Date Active please provide with supplys needed for injection fentanyl 100 mcg/hr transdermal patch RxNorm: 808511 1 Patch TD Q72H 02/06/2017 03/07/2017 Inactive Myrbetriq 50 mg tablet,extended release RxNorm: 6365726 1 Tablet(s) PO QPM 12/11/2016 07/22/2017 Inactive oxycodone 30 mg tablet RxNorm: 1822628 1/2 Tablet(s) PO Q6 10/201601/06/2017 Inactive naproxen 500 mg tablet RxNorm: 805390 1 Tablet(s) PO BID Take 1 tablet by mouth two times daily as needed 12/08/201607/08 Inactive - First Attempt Ref: [id number] Myrbetriq 50 mg tablet,extended release RxNorm: 2545036 1 Tablet(s) PO QPM 11/17/2016 12/10/2016 Inactive fentanyl 100 mcg/hr transdermal patch RxNorm: 974226 1 Patch TD Q72H 11/12/2016 12/11/2016 Inactive Vesicare 10 mg tablet RxNorm: 002144 1 Tablet(s) PO QPM 201611/18/2016 Inactive oxycodone 10 mg tablet RxNorm: 9121410 1-2 Tablet(s) PO Q4 PRN as needed to take between 30mg dose if needed for extra pain control 201612/07/2016 Inactive fentanyl 75 mcg/hr transdermal patch RxNorm: 769293 1 TD Q72H 10/22/2016 11/10/2016 Inactive oxycodone 10 mg tablet RxNorm: 4598422 1-2 Tablet(s) PO Q4 PRN as needed to take between 30mg dose if needed for extra pain control 201611/04/2016 Inactive Kenalog 40 mg/mL suspension for injection RxNorm: 2292025 1 Milliliter(s) Inj 10/02/2016 10/02/2016 Inactive Kenalog 40 mg/mL suspension for injection RxNorm: 9266877 1 Milliliter(s) Inj 09/12/2016 09/12/2016 Inactive cyclobenzaprine 5 mg tablet RxNorm: 999800 1 Tablet(s) PO Q8 as needed muscle spasms 09/11/2016 07/22/2017 Inactive prednisone 10 mg tablets in a dose pack RxNorm: 237826 1 Tablet(s) PO UD 09/09/2016 06/23/2017 Inactive potassium chloride ER 10 mEq capsule,extended release RxNorm: 384151 1 Capsule(s) PO BID as needed when taking lasix 08/26/2016 06/30/2017 Inactive Lasix 20 mg tablet RxNorm: 216123 1 Tablet(s) PO BID daily x 10 days then as needed edema 08/26/2016 12/23/2016 Inactive naproxen 500 mg tablet RxNorm: 391053 Take 1 tablet by mouth two times daily as needed 08/18/2016 11/15/2016 Inactive - First Attempt Ref: [id number] Lasix 20 mg tablet RxNorm: 451530 1 Tablet(s) PO QAM daily x 10 days then as needed edema 08/18/2016 08/25/2016 Inactive Vesicare 5 mg tablet RxNorm: 275872 1 Tablet(s) PO QPM 201611/04/2016 Inactive potassium chloride ER 10 mEq capsule,extended release RxNorm: 092293 1 Capsule(s) PO QAM as needed when taking lasix 08/18/2016 08/25/2016 Inactive Myrbetriq 25 mg tablet,extended release RxNorm: 1634150 1 Tablet(s) PO QHS 07/14/2016 07/29/2016 Inactive pantoprazole 40 mg tablet,delayed release RxNorm: 756651 Take 1 tablet by mouth daily 06/30/2016 12/26/2016 Inactive - Ref: [id number] Embeda 20 mg-0.8 mg capsule, extend release, oral only RxNorm: 985604 1 Capsule(s ) PO daily 06/04/2016 06/03/2016 Inactive Embeda 20 mg-0.8 mg capsule, extend release, oral only RxNorm: 434105 1 Capsule(s ) PO daily 06/04/2016 07/01/2016 Inactive oxycodone 10 mg tablet RxNorm: 7407489 1 Tablet(s) PO QID as needed to take between 30mg dose if needed for extra pain control 201606/10/2016 Inactive oxycodone 30 mg tablet RxNorm: 7468810 1 Tablet(s) PO Q6 201611/04/2016 Inactive cyanocobalamin (vit B-12) 1,000 mcg/mL injection solution RxNorm: 112676 1 Milliliter(s) Inj monthly 02/22/201602/15 Inactive she also needs syringes/ needles for this solution QS oxycodone 30 mg tablet RxNorm: 9135034 1 Tablet(s) PO Q6 201503/19/2016 Inactive oxycodone 10 mg tablet RxNorm: 3473194 1 Tablet(s) PO QID as needed to take between 30mg dose if needed for extra pain control 201503/19/2016 Inactive oxycodone 10 mg tablet RxNorm: 4437176 1 Tablet(s) PO QID as needed to take between 30mg dose if needed for extra pain control 201502/18/2016 Inactive oxycodone 30 mg tablet RxNorm: 7682820 1 Tablet(s) PO Q6 201502/18/2016 Inactive pantoprazole 40 mg tablet,delayed release RxNorm: 262206 Take 1 tablet by mouth daily 01/22/2016 06/29/2016 Inactive - First Attempt Ref: [id number] oxycodone 30 mg tablet RxNorm: 7727768 1 Tablet(s) PO Q6 201501/28/2016 Inactive oxycodone 10 mg tablet RxNorm: 3313985 1 Tablet(s) PO QID as needed take between 20mg dose if needed for extra pain control 11/07/2015 12/06/2015 Inactive oxycodone 20 mg tablet RxNorm: 6766247 1 Tablet(s) PO Q6 as needed 11/07/2015 12/31/2015 Inactive doxycycline hyclate 100 mg tablet RxNorm: 599327 1 Tablet(s) PO BID 11/01/2015 11/10/2015 Inactive potassium chloride ER 10 mEq capsule,extended release RxNorm: 746552 1 Capsule(s) PO TIW as needed when taking lasix 09/04/2015 08/17/2016 Inactive Voltaren 1 % topical gel RxNorm: 568269 2 Gram(s) TOP QID 08/2909/03/2015 Inactive pa approved Voltaren 1 % topical gel RxNorm: 178835 2 Gram(s) TOP QID 08/0808/29/2015 Inactive naproxen 500 mg tablet RxNorm: 248327 1 Tablet(s) PO BID 201508/17/2016 Inactive naproxen 500 mg tablet RxNorm: 364329 1 Tablet(s) PO BID 201508/08/2015 Inactive doxycycline hyclate 100 mg tablet RxNorm: 903661 1 Tablet(s) PO BID do not take calcium/vitamin d while on antibiotic 07/18/2015 07/31/2015 Inactive Vitamin D2 50,000 unit capsule RxNorm: 086022 1 Capsule(s) PO QW 07/02/2015 11/18/2015 Inactive Premarin 0.3 mg tablet RxNorm: 504664 1 Tablet(s) PO daily 12/201505/09/2015 Inactive Premarin 0.3 mg tablet RxNorm: 489269 1 Tablet(s) PO daily 12/201503/17/2016 Inactive simvastatin 40 mg tablet RxNorm: 201853 1 Tablet(s) PO daily 03/17/2016 Inactive spironolactone 25 mg tablet RxNorm: 198368 TAKE ONE TABLET BY MOUTH DAILY 05/07/2015 05/27/2016 Inactive potassium chloride ER 10 mEq capsule,extended release RxNorm: 707084 1 Capsule(s) PO TIW as needed when taking lasix 04/17/2015 09/03/2015 Inactive alendronate 70 mg tablet RxNorm: 646866 1 Tablet(s) PO weekly QW 04/17/2015 07/01/2015 Inactive Vitamin D2 50,000 unit capsule RxNorm: 619834 1 Capsule(s) PO QW 03/30/2015 06/27/2015 Inactive Vitamin D2 50,000 unit capsule RxNorm: 386474 1 Capsule(s) PO QW 03/21/2015 03/29/2015 Inactive cyanocobalamin (vit B-12) 1,000 mcg/mL injection solution RxNorm: 520950 1 Milliliter(s) Inj monthly 03/19/201502/20 Inactive cyanocobalamin (vit B-12) 1,000 mcg/mL injection solution RxNorm: 688941 1 Milliliter(s) Inj monthly 03/16/201503/18 Inactive cyanocobalamin (vit B-12) 1,000 mcg/mL injection solution RxNorm: 531904 1 Milliliter(s) Inj monthly 03/16/201503/15 Inactive pantoprazole 40 mg tablet,delayed release RxNorm: 605730 1 Tablet(s) PO daily 03/05/2015 01/21/2016 Inactive Lasix 20 mg tablet RxNorm: 291114 1 Tablet(s) PO TIW as needed edema 02/08/2015 02/02/2016 Inactive oxycodone 10 mg tablet RxNorm: 8368723 1 Tablet(s) PO QID as needed take between 20mg dose if needed for extra pain control 11/09/2014 12/08/2014 Inactive oxycodone 20 mg tablet RxNorm: 4434443 1 Tablet(s) PO Q6 as needed 10/25/2014 11/06/2015 Inactive doxycycline hyclate 100 mg tablet RxNorm: 527093 1 Tablet(s) PO BID 10/23/2014 11/19/2014 Inactive Cipro 500 mg tablet RxNorm: 031270 1 Tablet(s) PO BID 201410/16/2014 Inactive Cipro 500 mg tablet RxNorm: 556698 1 Tablet(s) PO BID 201410/09/2014 Inactive oxycodone 20 mg tablet RxNorm: 4559364 1 Tablet(s) PO Q6 as needed 09/25/2014 10/24/2014 Inactive Lasix 20 mg tablet RxNorm: 536936 1 Tablet(s) PO TIW as needed edema 09/14/2014 01/11/2015 Inactive potassium chloride ER 10 mEq capsule,extended release RxNorm: 789947 1 Capsule(s) PO TIW as needed when taking lasix 09/14/2014 01/11/2015 Inactive doxycycline hyclate 100 mg tablet RxNorm: 973313 1 Tablet(s) PO BID 09/05/2014 09/14/2014 Inactive doxycycline hyclate 100 mg tablet RxNorm: 447686 1 Tablet(s) PO BID 09/05/2014 09/04/2014 Inactive oxycodone 20 mg tablet RxNorm: 3925533 1 Tablet(s) PO Q6 as needed 08/29/2014 09/24/2014 Inactive spironolactone 25 mg tablet RxNorm: 555709 1 Tablet(s) PO daily 08/11/2014 03/08/2015 Inactive oxycodone 20 mg tablet RxNorm: 7099065 1 Tablet(s) PO Q6 as needed 08/02/2014 08/28/2014 Inactive Vitamin D3 2,000 unit tablet RxNorm: 803777 1 Tablet(s) PO daily 07/14/2014 No Stop Date Active Vitamin D2 50,000 unit capsule RxNorm: 072519 1 Capsule(s) PO QW 07/14/2014 10/11/2014 Inactive Vitamin D2 50,000 unit capsule RxNorm: 714003 1 Capsule(s) PO QW 07/14/2014 07/13/2014 Inactive Prolia 60 mg/mL subcutaneous syringe RxNorm: 470040 Milliliter(s) SQ EVERY 6 MONTHS No Start Date Active Carafate 1 gram tablet RxNorm: 911355 1 Tablet(s) PO BID No Start Date Active Miralax oral RxNorm: 129434 oral No Start Date Active Stool Softener oral RxNorm: 63745 oral No Start Date Active Calcium + Vitamin D oral RxNorm: 4018 oral No Start Date Active naproxen 500 mg tablet RxNorm: 566928 1 Tablet(s) PO BID No Start Date 08/05/2015 Inactive albuterol sulfate 2.5 mg/3 mL (0.083 %) solution for nebulization RxNorm: 174362 3 Milliliter(s) INH Q4 PRN No Start Date 02/17/2018 Inactive oxycodone 20 mg tablet RxNorm: 6980055 1 Tablet(s) PO Q6 as needed No Start Date 08/01/2014 Inactive aspirin 81 mg tablet RxNorm: 651038 1 Tablet(s) PO daily No Start Date 07/22/2017 Inactive simvastatin 40 mg tablet RxNorm: 454311 1 Tablet(s) PO daily No Start Date 05/09/2015 Inactive cyanocobalamin (vit B-12) 1,000 mcg/mL injection syringe RxNorm: 087548 1 Inj monthly No Start Date 02/15/2017 Inactive Reglan 10 mg tablet RxNorm: 996304 1 Tablet(s) PO as needed No Start Date 07/29/2016 Inactive alendronate 70 mg tablet RxNorm: 380478 1 Tablet(s) PO weekly No Start Date 04/16/2015 Inactive Protonix 40 mg tablet,delayed release RxNorm: 993667 1 Tablet(s) PO daily No Start Date 03/04/2015 Inactive cyclobenzaprine 5 mg tablet RxNorm: 777649 1 Tablet(s) PO Q8 as needed muscle spasms No Start Date 09/10/2016 Inactive Vitamin D3 1,000 unit capsule RxNorm: 360891 1 Capsule(s) PO daily No Start Date 07/13/2014 Inactive Cardizem CD 360 mg capsule,extended release RxNorm: 238461 1 Capsule(s) PO daily No Start Date 01/04/2018 Inactive prednisone 10 mg tablets in a dose pack RxNorm: 630778 1 Tablet(s) PO UD No Start Date 09/08/2016 Inactive Medication Administered Medication Codes Instructions Start Date Status Kenalog 40 mg/mL suspension for injection RxNorm: 7603388 1Milliliter 08/31/2017 No longer Active Kenalog 40 mg/mL suspension for injection RxNorm: 7292571 2Milliliter 08/21/2017 No longer Active Kenalog 40 mg/mL suspension for injection RxNorm: 1041588 2MilliliterUD 08/12/2017 No longer Active Kenalog 40 mg/mL suspension for injection RxNorm: 7503226 2Milliliter 08/05/2017 No longer Active Kenalog 40 mg/mL suspension for injection RxNorm: 5916352 1.5Milliliter 04/02/2017 No longer Active Kenalog 40 mg/mL suspension for injection RxNorm: 9854752 1Milliliter 10/02/2016 No longer Active Kenalog 40 mg/mL suspension for injection RxNorm: 6710978 1Milliliter 09/12/2016 No longer Active Immunizations Vaccine [...] Item Item Code Result Date Comp Metabolic Yeb185 NA 134 mEq/L 03/03/2018 Comp Metabolic Cvh597 K 3.3 mEq/L 03/03/2018 Comp Metabolic Mvl102 CL 90 mEq/L 03/03/2018 Comp Metabolic Jsf107 CO2 33.0 mEq/L 03/03/2018 Comp Metabolic Kpf288 ANION GAP 14 03/03/2018 Comp Metabolic Hct384 GLUCOSE 146 mg/dL 03/03/2018 Comp Metabolic Kyi186 Creat 1.7 mg/dL 03/03/2018 Comp Metabolic Cke224 eGFR 31 ml/min/1.73m2 03/03/2018 Comp Metabolic Aiq176 BUN 74 mg/dL 03/03/2018 Comp Metabolic Wfs108 B/C Ratio 43.8 Ratio 03/03/2018 Comp Metabolic Sbl284 CALCIUM 8.6 mg/dL 03/03/2018 Comp Metabolic Qiw169 ALK PHOS 70 U/L 03/03/2018 Comp Metabolic Gqd831 AST(SGOT) 14 U/L 03/03/2018 Comp Metabolic Apl868 ALT(SGPT) 9 U/L 03/03/2018 Comp Metabolic Orq656 BILI T 0.6 mg/dL 03/03/2018 Comp Metabolic Ama356 ALBUMIN 3.8 g/dL 03/03/2018 Comp Metabolic Yft516 TPRO 6.7 g/dL 03/03/2018 Comp Metabolic Yol440 GLOB 2.9 g/dL 03/03/2018 Comp Metabolic Ycl407 A/G Ratio 1.3 Ratio 03/03/2018 Comp Metabolic Tdf325 Osmo 293 mOsmo 03/03/2018 Cbc With Differential [...] 29.9 pg 03/03/2018 Cbc With Differential Ord2 [place]% 11.1 % 03/03/2018 Cbc With Differential Ord2 [...] 1.38 K/ul 03/03/2018 Cbc With Differential Ord2 [place] ABS# 0.9 K/ul 03/03/2018 Cbc With Differential Ord2 Eos ABS# 0.0 K/ul 03/03/2018 Cbc With Differential Ord2 Baso ABS# 0.1 K/ul 03/03/2018 Tibc Ord40 Iron 75 ug/dl 10/22/2017 Tibc Ord40 UIBC 270 ug/dL 10/22/2017 Tibc Ord40 TIBC 345 ug/dL 10/22/2017 Tibc Ord40 Fe-%Sat 21.7 % 10/22/2017 Prealbumin 866297 PREALBUMIN 33 mg/dL 10/21/2017 Comp Metabolic Cii606 NA 134 mEq/L 10/20/2017 Comp Metabolic Nns539 K 3.7 mEq/L 10/20/2017 Comp Metabolic Thk662 CL 93 mEq/L 10/20/2017 Comp Metabolic Gpt625 CO2 29.0 mEq/L 10/20/2017 Comp Metabolic Vcx456 ANION GAP 16 10/20/2017 Comp Metabolic Vre349 GLUCOSE 115 mg/dL 10/20/2017 Comp Metabolic Jbg694 Creat 0.8 mg/dL 10/20/2017 Comp Metabolic Ync012 eGFR 73 ml/min/1.73m2 10/20/2017 Comp Metabolic Fjd873 BUN 46 mg/dL 10/20/2017 Comp Metabolic Ygb947 B/C Ratio 57.5 Ratio 10/20/2017 Comp Metabolic Vuk666 CALCIUM 8.7 mg/dL 10/20/2017 Comp Metabolic Hmz353 ALK PHOS 56 U/L 10/20/2017 Comp Metabolic Ehg679 AST(SGOT) 19 U/L 10/20/2017 Comp Metabolic Run992 ALT(SGPT) 23 U/L 10/20/2017 Comp Metabolic Maa870 BILI T 0.6 mg/dL 10/20/2017 Comp Metabolic Dav153 ALBUMIN 4.0 g/dL 10/20/2017 Comp Metabolic Njt096 TPRO 6.6 g/dL 10/20/2017 Comp Metabolic Axi327 GLOB 2.7 g/dL 10/20/2017 Comp Metabolic Xno967 A/G Ratio 1.5 Ratio 10/20/2017 Comp Metabolic Aaf048 Osmo 281 mOsmo 10/20/2017 Tsh Ord6 TSH [...] 35.4 pg 10/20/2017 Cbc With Differential Ord2 [place]% 9.9 % 10/20/2017 Cbc With Differential Ord2 [...] 1.15 K/ul 10/20/2017 Cbc With Differential Ord2 [place] ABS# 0.6 K/ul 10/20/2017 Cbc With Differential Ord2 Eos ABS# 0.0 K/ul 10/20/2017 Cbc With Differential Ord2 Baso ABS# 0.0 K/ul 10/20/2017 Iron Ord72 Iron 75 ug/dl 10/20/2017 Romie Reflex Profile [id number] ROMIE (BRYANNA) SCREEN NONE DETECTED 01/12/2017 Comp Metabolic Kfp061 NA 129 mEq/L 01/08/2017 Comp Metabolic Uww165 K 3.9 mEq/L 01/08/2017 Comp Metabolic Wan560 CL 94 mEq/L 01/08/2017 Comp Metabolic Yfd870 CO2 31.0 mEq/L 01/08/2017 Comp Metabolic Ehl526 ANION GAP 8 01/08/2017 Comp Metabolic Vds641 GLUCOSE 103 mg/dL 01/08/2017 Comp Metabolic Hem503 Creat 0.9 mg/dL 01/08/2017 Comp Metabolic Bis921 eGFR 61 ml/min/1.73m2 01/08/2017 Comp Metabolic Dvz198 BUN 29 mg/dL 01/08/2017 Comp Metabolic Jlo479 B/C Ratio 30.9 Ratio 01/08/2017 Comp Metabolic Sgd410 CALCIUM 8.5 mg/dL 01/08/2017 Comp Metabolic Qyv352 ALK PHOS 58 U/L 01/08/2017 Comp Metabolic Wmy949 AST(SGOT) 17 U/L 01/08/2017 Comp Metabolic Rie462 ALT(SGPT) 10 U/L 01/08/2017 Comp Metabolic Bsf189 BILI T 0.4 mg/dL 01/08/2017 Comp Metabolic Xqp169 ALBUMIN 3.0 g/dL 01/08/2017 Comp Metabolic Fey325 TPRO 5.5 g/dL 01/08/2017 Comp Metabolic Yag594 GLOB 2.5 g/dL 01/08/2017 Comp Metabolic Icp853 A/G Ratio 1.2 Ratio 01/08/2017 Comp Metabolic Nyj528 Osmo 265 mOsmo 01/08/2017 Cbc With Differential [...] 23.3 % 01/08/2017 Cbc With Differential Ord2 [place]% 12.2 % 01/08/2017 Cbc With Differential Ord2 [...] 1.62 K/ul 01/08/2017 Cbc With Differential Ord2 [place] ABS# 0.9 K/ul 01/08/2017 Cbc With Differential [...] 100.3 fl 11/10/2016 Cbc With Differential Ord2 [place]% 9.1 % 11/10/2016 Cbc With Differential Ord2 [...] 0.78 K/ul 11/10/2016 Cbc With Differential Ord2 [place] ABS# 0.5 K/ul 11/10/2016 Cbc With Differential [...] 30.3 pg 10/07/2016 Cbc With Differential Ord2 [place]% 11.8 % 10/07/2016 Cbc With Differential Ord2 [...] 1.54 K/ul 10/07/2016 Cbc With Differential Ord2 [place] ABS# 1.0 K/ul 10/07/2016 Cbc With Differential Ord2 Eos ABS# 0.1 K/ul 10/07/2016 Cbc With Differential Ord2 Baso ABS# 0.0 K/ul 10/07/2016 Comp Metabolic Iye345 NA 129 mEq/L 08/26/2016 Comp Metabolic Xzj062 K 3.9 mEq/L 08/26/2016 Comp Metabolic Ewj008 CL 93 mEq/L 08/26/2016 Comp Metabolic Mak925 CO2 30.0 mEq/L 08/26/2016 Comp Metabolic Fae906 ANION GAP 10 08/26/2016 Comp Metabolic Qet447 GLUCOSE 87 mg/dL 08/26/2016 Comp Metabolic Tbe718 Creat 0.6 mg/dL 08/26/2016 Comp Metabolic Nhz503 eGFR 96 ml/min/1.73m2 08/26/2016 Comp Metabolic Rja583 BUN 17 mg/dL 08/26/2016 Comp Metabolic Gvw399 B/C Ratio 27.0 Ratio 08/26/2016 Comp Metabolic Dhh813 CALCIUM 7.6 mg/dL 08/26/2016 Comp Metabolic Lqq602 ALK PHOS 72 U/L 08/26/2016 Comp Metabolic Wsh908 AST(SGOT) 20 U/L 08/26/2016 Comp Metabolic Nge239 ALT(SGPT) 12 U/L 08/26/2016 Comp Metabolic Epb615 BILI T 0.3 mg/dL 08/26/2016 Comp Metabolic Dap360 ALBUMIN 2.7 g/dL 08/26/2016 Comp Metabolic Bul884 TPRO 5.3 g/dL 08/26/2016 Comp Metabolic Rek381 GLOB 2.6 g/dL 08/26/2016 Comp Metabolic Loc338 A/G Ratio 1.1 Ratio 08/26/2016 Comp Metabolic Bsd818 Osmo 260 mOsmo 08/26/2016 Cbc With Differential [...] 28.3 pg 08/26/2016 Cbc With Differential Ord2 [place]% 9.6 % 08/26/2016 Cbc With Differential Ord2 [...] 1.83 K/ul 08/26/2016 Cbc With Differential Ord2 [place] ABS# 1.0 K/ul 08/26/2016 Cbc With Differential Ord2 Eos ABS# 0.1 K/ul 08/26/2016 Cbc With Differential Ord2 Baso ABS# 0.0 K/ul 08/26/2016 Magnesium Ord90 Mag 1.9 mg/dL 08/26/2016 Vitamin D 25 Oh Uah8640 VITAMIN D, 25 HYDROXY 34.59 ng/mL Tibc Ord40 Iron 13 ug/dl 08/26/2016 Tibc Ord40 UIBC 283 ug/dL 08/26/2016 Tibc Ord40 TIBC 296 ug/dL 08/26/2016 Tibc Ord40 Fe-%Sat 4.4 % 08/26/2016 Ferritin Ord22 FERRITIN 28.8 ng/mL 08/26/2016 Sed Rate Ord21 ESR 20 mm/hr 11/19/2015 Comp Metabolic Bvq874 NA 131 mEq/L 08/22/2015 Comp Metabolic Jbd271 K 4.2 mEq/L 08/22/2015 Comp Metabolic Tar200 CL 98 mEq/L 08/22/2015 Comp Metabolic Nzz630 CO2 27.0 mEq/L 08/22/2015 Comp Metabolic Icq590 ANION GAP 10 08/22/2015 Comp Metabolic Bol333 GLUCOSE 80 mg/dL 08/22/2015 Comp Metabolic Sul632 Creat 0.5 mg/dL 08/22/2015 Comp Metabolic Tzc146 eGFR 120 ml/min/1.73m2 08/22/2015 Comp Metabolic Tfu577 BUN 13 mg/dL 08/22/2015 Comp Metabolic Tcj418 B/C Ratio 25.0 Ratio 08/22/2015 Comp Metabolic Aeh760 CALCIUM 8.2 mg/dL 08/22/2015 Comp Metabolic Ssi188 ALK PHOS 49 U/L 08/22/2015 Comp Metabolic Dsd721 AST(SGOT) 18 U/L 08/22/2015 Comp Metabolic Zrm570 ALT(SGPT) 11 U/L 08/22/2015 Comp Metabolic Vhi055 BILI T 0.5 mg/dL 08/22/2015 Comp Metabolic Vwj940 ALBUMIN 3.5 g/dL 08/22/2015 Comp Metabolic Xfd085 TPRO 6.2 g/dL 08/22/2015 Comp Metabolic Byi953 GLOB 2.7 g/dL 08/22/2015 Comp Metabolic Eaf928 A/G Ratio 1.3 Ratio 08/22/2015 Comp Metabolic Zaw728 Osmo 262 mOsmo 08/22/2015 Cbc With Differential [...] 32.4 pg 08/22/2015 Cbc With Differential Ord2 [place]% 10.3 % 08/22/2015 Cbc With Differential Ord2 [...] 1.39 K/ul 08/22/2015 Cbc With Differential Ord2 [place] ABS# 0.7 K/ul 08/22/2015 Cbc With Differential Ord2 Eos ABS# 0.1 K/ul 08/22/2015 Cbc With Differential Ord2 Baso ABS# 0.0 K/ul 08/22/2015 Tsh Ord6 hTSH II 2.19 uIU/mL 08/22/2015 Vitamin D 25 Oh Voj4470 VITAMIN D, 25 HYDROXY 55.10 ng/mL Lipid [...] 1.5 Ratio 03/16/2015 Vitamin D 25 Oh Asd6986 VITAMIN D, 25 HYDROXY 28.94 ng/mL Cbc [...] 28.1 pg 03/16/2015 Cbc With Differential Ord2 [place]% 11.2 % 03/16/2015 Cbc With Differential Ord2 [...] 2.37 K/ul 03/16/2015 Cbc With Differential Ord2 [place] ABS# 0.8 K/ul 03/16/2015 Cbc With Differential Ord2 Eos ABS# 0.1 K/ul 03/16/2015 Cbc With Differential Ord2 Baso ABS# 0.0 K/ul 03/16/2015 Cbc With Differential Ord2 New Analyzer Notice Please note new ref ranges starting 03-14-2015 due to implemntation of new five part differential hematolgy analyzer. 03/16/2015 Comp Metabolic Mno550 NA 131 mEq/L 03/16/2015 Comp Metabolic Fat181 K 4.1 mEq/L 03/16/2015 Comp Metabolic Iwj268 CL 94 mEq/L 03/16/2015 Comp Metabolic Pel113 CO2 28.0 mEq/L 03/16/2015 Comp Metabolic Bbw350 ANION GAP 13 03/16/2015 Comp Metabolic Nkr669 GLUCOSE 96 mg/dL 03/16/2015 Comp Metabolic Hqs447 Creat 0.7 mg/dL 03/16/2015 Comp Metabolic Mij105 eGFR 80 ml/min/1.73m2 03/16/2015 Comp Metabolic Yjj349 BUN 16 mg/dL 03/16/2015 Comp Metabolic Usu653 B/C Ratio 21.6 Ratio 03/16/2015 Comp Metabolic Amp709 CALCIUM 8.9 mg/dL 03/16/2015 Comp Metabolic Sgb265 ALK PHOS 44 U/L 03/16/2015 Comp Metabolic Eij812 AST(SGOT) 22 U/L 03/16/2015 Comp Metabolic Dqs472 ALT(SGPT) 14 U/L 03/16/2015 Comp Metabolic Qla395 BILI T 0.5 mg/dL 03/16/2015 Comp Metabolic And494 ALBUMIN 3.4 g/dL 03/16/2015 Comp Metabolic Ciu796 TPRO 6.0 g/dL 03/16/2015 Comp Metabolic Tbg725 GLOB 2.6 g/dL 03/16/2015 Comp Metabolic Ios935 A/G Ratio 1.3 Ratio 03/16/2015 Comp Metabolic Cpl952 Osmo 264 mOsmo 03/16/2015 Comp Metabolic Pjf527 NA 129 mEq/L 11/09/2014 Comp Metabolic Aul206 K 4.2 mEq/L 11/09/2014 Comp Metabolic Xrn643 CL 96 mEq/L 11/09/2014 Comp Metabolic Yao661 CO2 27.0 mEq/L 11/09/2014 Comp Metabolic Ocy661 ANION GAP 10 11/09/2014 Comp Metabolic Zvi165 GLUCOSE 144 mg/dL 11/09/2014 Comp Metabolic Rfe198 Creat 0.8 mg/dL 11/09/2014 Comp Metabolic Xdo704 eGFR 73 ml/min/1.73m2 11/09/2014 Comp Metabolic Oak107 BUN 22 mg/dL 11/09/2014 Comp Metabolic Xwu789 B/C Ratio 27.5 Ratio 11/09/2014 Comp Metabolic Onw664 CALCIUM 8.6 mg/dL 11/09/2014 Comp Metabolic Pol602 ALK PHOS 55 U/L 11/09/2014 Comp Metabolic Hzk426 AST(SGOT) 27 U/L 11/09/2014 Comp Metabolic Qvq474 ALT(SGPT) 18 U/L 11/09/2014 Comp Metabolic Bwk138 BILI T 0.5 mg/dL 11/09/2014 Comp Metabolic Ims345 ALBUMIN 3.0 g/dL 11/09/2014 Comp Metabolic Hbk486 TPRO 5.4 g/dL 11/09/2014 Comp Metabolic Pgb389 GLOB 2.4 g/dL 11/09/2014 Comp Metabolic Mln948 A/G Ratio 1.3 Ratio 11/09/2014 Comp Metabolic Jyn001 Osmo 265 mOsmo 11/09/2014 Magnesium Ord90 Mag [...] distress 11/30/2017 None Full Exam - General 1995 Constitutional general appearance Overall: well nourished 11/30/2017 [...] Procedures Procedure Codes Date DRAIN/INJECT JOINT/BURSA CPT-4: 99581 08/21/2017 DRAIN/INJECT JOINT/BURSA CPT-4: 96260 08/12/2017 TRIAMCINOLONE ACET INJ NOS CPT-4: J3301 08/12/2017 DRAIN/INJECT JOINT/BURSA CPT-4: 05268 08/05/2017 TRIAMCINOLONE ACET INJ NOS CPT-4: J3301 08/05/2017 DRAIN/INJECT JOINT/BURSA CPT-4: 86110 07/23/2017 DRAIN/INJECT JOINT/BURSA CPT-4: 89608 07/09/2017 TRIAMCINOLONE ACET INJ NOS CPT-4: J3301 07/09/2017 PRESCRIP TRANSMIT VIA ERX SY CPT-4: G8553 07/09/2017 DRAIN/INJECT JOINT/BURSA CPT-4: 60018 07/01/2017 TRIAMCINOLONE ACET INJ NOS CPT-4: J3301 07/01/2017 PRESCRIP TRANSMIT VIA ERX SY CPT-4: G8553 07/01/2017 DRAIN/INJECT JOINT/BURSA CPT-4: 32418 06/17/2017 DRAIN/INJECT JOINT/BURSA CPT-4: 24897 04/02/2017 TRIAMCINOLONE ACET INJ NOS CPT-4: J3301 04/02/2017 DRAIN/INJECT JOINT/BURSA CPT-4: 06530 02/06/2017 ADMIN INFLUENZA VIRUS VAC CPT-4: G0008 12/08/2016 FLU VACC PRSV FREE INC ANTIG CPT-4: 73078 12/08/2016 PRESCRIP TRANSMIT VIA ERX SY CPT-4: G8553 12/08/2016 PRESCRIP TRANSMIT VIA ERX SY CPT-4: G8553 11/17/2016 TRIAMCINOLONE ACET INJ NOS CPT-4: J3301 10/02/2016 TRIAMCINOLONE ACET INJ NOS CPT-4: J3301 09/12/2016 DRAIN/INJECT JOINT/BURSA CPT-4: 39183 09/08/2016 TRIAMCINOLONE ACET INJ NOS CPT-4: J3301 09/08/2016 PRESCRIP TRANSMIT VIA ERX SY CPT-4: G8553 08/26/2016 PRESCRIP TRANSMIT VIA ERX SY CPT-4: G8553 08/18/2016 ADMIN INFLUENZA VIRUS VAC CPT-4: G0008 11/19/2015 FLU VACC PRSV FREE INC ANTIG Formatting Model/CDA Sections, Assigned to/Luanne Elaine CPT-4: 96081Apmdpfr 11/19/2015 PRESCRIP TRANSMIT VIA ERX SY CPT-4: G8553 09/04/2015 PRESCRIP TRANSMIT VIA ERX SY CPT-4: G8553 2015 PRESCRIP TRANSMIT VIA ERX SY CPT-4: G8553 07/18/2015 PRESCRIP TRANSMIT VIA ERX SY CPT-4: G8553 07/02/2015 REMOVE IMPACTED EAR WAX UNI CPT-4: 00691 04/09/2015 PRESCRIP TRANSMIT VIA ERX SY CPT-4: G8553 02/08/2015 ADMIN INFLUENZA VIRUS VAC CPT-4: G0008 01/10/2015 FLU VACC PRSV FREE INC ANTIG Formatting Model/CDA Sections, Assigned to/Luanne Elaine CPT-4: 89273Enqxwlx 01/10/2015 ADMIN PNEUMOCOCCAL VACCINE Formatting Model/CDA Sections, Assigned to SNOMED CT: 31933547 CPT-4: R7493Skfafsp 12/11/2014 PNEUMOCOCCAL VACC [address]: 14458293 CPT-4: 52141 12/11/2014 Vital Signs Date Vital 03/03/2018 Blood [...] Code : 8480-6 BMI: 23.5 Code : 62234-2 Heart Rate 1 : 58 bpm Height: 5'8" SpO2: 96% Weight: 152 lbs 11/30/2017 Blood Pressure 1: 122/70 Code : 8480-6 Heart Rate 1: 105 bpm Height: 5'8" SpO2: 98% Weight: 11/27/2017 Blood Pressure 1: 148/76 Code : 8480-6 Heart Rate 1: 72 bpm Height: 5'8" SpO2: 99% Weight: 11/10/2017 Blood Pressure 1: 130/76 Code : 8480-6 BMI: 27.3 Code : 74947-7 Heart Rate 1 : 98 bpm Height: [...] Code : 8480-6 BMI: 24.7 Code : 34769-0 Heart Rate 1 : 100 bpm Height: 5'8" SpO2: 95% Weight: 160 lbs 08/31/2017 Blood Pressure 1: 128/78 Code : 8480-6 BMI: 23.6 Code : 62474-3 Heart Rate 1 : 102 bpm Height: 5'8" SpO2: 96% Weight: 153 lbs 08/21/2017 Blood Pressure 1: 138/78 Code : 8480-6 Heart Rate 1: 97 bpm SpO2: 95% Weight: 156 lbs 2 oz 08/12/2017 Blood Pressure 1: 138/74 Code : 8480-6 BMI: 25.0 Code : 69665-0 Heart Rate 1 : 94 bpm Height: 5'8" SpO2: 98% Weight: 162 lbs 08/05/2017 Blood Pressure 1: 126/78 Code : 8480-6 BMI: 25.8 Code : 44100-5 Heart Rate 1 : 74 bpm Height: 5'8" SpO2: 96% Weight: 167 lbs 07/23/2017 Blood Pressure 1: 106/64 Code : 8480-6 BMI: 25.3 Code : 16601-5 Heart Rate 1 : 81 bpm Height: 5'8" SpO2: 99% Weight: 163 lbs 14 oz 07/09/2017 Blood Pressure 1: 130/68 Code : 8480-6 Heart Rate 1: 82 bpm Height: 5'8" SpO2: 98% Weight: 07/01/2017 Blood Pressure 1: 124/76 Code : 8480-6 BMI: 26.5 Code : 57369-6 Heart Rate 1 : 99 bpm Height: 5'8" SpO2: 98% Weight: 172 lbs 06/24/2017 Blood Pressure 1: 118/70 Code : 8480-6 Heart Rate 1: 103 bpm Height: 5'8" SpO2: 98% Weight: 06/17/2017 Blood Pressure 1: 110/64 Code : 8480-6 BMI: 25.0 Code : 49517-1 Heart Rate 1 : 73 bpm Height: 5'8" Weight: 162 lbs 06/01/2017 Blood Pressure 1: 158/84 Code : 8480-6 BMI: 24.4 Code : 70719-1 Heart Rate 1 : 94 bpm Height: 5'8" SpO2: 95% Weight: 158 lbs 04/02/2017 Blood Pressure 1: 164/80 Code : 8480-6 BMI: 23.1 Code : 27542-0 Heart Rate 1 : 76 bpm Height: 5'8" SpO2: 94% Weight: 150 lbs 03/12/2017 Blood Pressure 1: 130/74 Code : 8480-6 BMI: 23.0 Code : 36104-3 Heart Rate 1 : 92 bpm Height: 5'8" SpO2: 94% Weight: 149 lbs 02/06/2017 Height: Weight: 01/08/2017 Blood Pressure 1: 136/76 Code : 8480-6 BMI: 21.4 Code : 23528-0 Heart Rate 1 : 85 bpm Height: 5'8" SpO2: 98% Weight: 138 lbs 8 oz 12/08/2016 Blood Pressure 1: 132/66 Code : 8480-6 BMI: 22.2 Code : 95228-6 Heart Rate 1 : 106 bpm Height: 5'8" SpO2: 97% Weight: 144 lbs 11/17/2016 Blood Pressure 1: 146/80 Code : 8480-6 BMI: 22.4 Code : 26459-8 Heart Rate 1 : 100 bpm Height: 5'8" SpO2: 98% Weight: 145 lbs 11/10/2016 Blood Pressure 1: 122/62 Code : 8480-6 BMI: 22.2 Code : 04616-6 Height: 5'8" Weight: 144 lbs 11/05/2016 Blood Pressure 1: 146/80 Code : 8480-6 BMI: 22.2 Code : 89558-6 Heart Rate 1 : 77 bpm Height: 5'8" SpO2: 99% Weight: 144 lbs 10/07/2016 Blood Pressure 1: 132/68 Code : 8480-6 BMI: 22.8 Code : 59687-1 Heart Rate 1 : 90 bpm Height: 5'8" SpO2: 97% Weight: 148 lbs 10/02/2016 Blood Pressure 1: 166/86 Code : 8480-6 BMI: 22.8 Code : 42214-0 Heart Rate 1 : 96 bpm Height: 5'8" SpO2: 96% Weight: 148 lbs 09/12/2016 Blood Pressure 1: 130/86 Code : 8480-6 Height: Weight: 09/08/2016 Blood Pressure 1: 132/74 Code : 8480-6 BMI: 22.4 Code : 14010-9 Heart Rate 1 : 93 bpm Height: 5'8" SpO2: 99% Weight: 145 lbs 08/26/2016 Blood Pressure 1: 132/78 Code : 8480-6 BMI: 23.9 Code : 75928-8 Heart Rate 1 : 80 bpm Height: 5'8" SpO2: 94% Weight: 155 lbs 08/18/2016 Blood Pressure 1: 130/70 Code : 8480-6 BMI: 23.6 Code : 93888-3 Heart Rate 1 : 100 bpm Height: 5'8" SpO2: 94% Weight: 153 lbs 07/30/2016 Blood Pressure 1: 144/84 Code : 8480-6 BMI: 22.4 Code : 29652-5 Heart Rate 1 : 86 bpm Height: 5'8" SpO2: 97% Weight: 145 lbs 07/14/2016 Blood Pressure 1: 122/74 Code : 8480-6 BMI: 22.5 Code : 70905-9 Heart Rate 1 : 87 bpm Height: 5'8" SpO2: 97% Weight: 146 lbs 07/04/2016 Blood Pressure 1: 128/78 Code : 8480-6 BMI: 22.5 Code : 90868-5 Heart Rate 1 : 98 bpm Height: 5'8" Weight: 146 lbs 06/26/2016 Blood Pressure 1: 122/68 Code : 8480-6 BMI: 22.5 Code : 59325-9 Heart Rate 1 : 102 bpm Height: 5'8" SpO2: 98% Weight: 146 lbs 05/28/2016 Blood Pressure 1: 122/68 Code : 8480-6 BMI: 22.4 Code : 26293-5 Heart Rate 1 : 89 bpm Height: 5'8" SpO2: 97% Weight: 145 lbs 03/18/2016 Blood Pressure 1: 132/66 Code : 8480-6 BMI: 22.8 Code : 59581-0 Heart Rate 1 : 96 bpm Height: 5'8" SpO2: 98% Weight: 148 lbs 01/29/2016 Blood Pressure 1: 122/66 Code : 8480-6 BMI: 22.2 Code : 18140-6 Heart Rate 1 : 90 bpm Height: 5'8" SpO2: 99% Weight: 144 lbs 01/01/2016 Blood Pressure 1: 148/82 Code : 8480-6 BMI: 22.5 Code : 42682-0 Heart Rate 1 : 82 bpm Height: 5'8" Weight: 146 lbs 11/19/2015 Blood Pressure 1: 140/74 Code : 8480-6 BMI: 23.7 Code : 76910-0 Heart Rate 1 : 79 bpm Height: 5'8" SpO2: 96% Weight: 153 lbs 8 oz 11/01/2015 Blood Pressure 1: 118/72 Code : 8480-6 Heart Rate 1: 90 bpm Height: 5'8" SpO2: 95% 09/04/2015 Blood Pressure 1: 136/72 Code : 8480-6 BMI: 23.1 Code : 20888-3 Heart Rate 1 : 97 bpm Height: 5'8" SpO2: 98% Weight: 149 lbs 8 oz 2015 Blood Pressure 1: 144/76 Code : 8480-6 BMI: 22.8 Code : 37135-5 Heart Rate 1 : 75 bpm Height: 5'8" SpO2: 97% Weight: 148 lbs 07/18/2015 Blood Pressure 1: 132/60 Code : 8480-6 BMI: 23.1 Code : 15793-8 Heart Rate 1 : 78 bpm Height: 5'8" Weight: 150 lbs 07/02/2015 Blood Pressure 1: 156/86 Code : 8480-6 BMI: 23.0 Code : 98069-4 Heart Rate 1 : 75 bpm Height: 5'8" SpO2: 99% Weight: 149 lbs 05/31/2015 Blood Pressure 1: 136/72 Code : 8480-6 BMI: 22.7 Code : 71654-2 Heart Rate 1 : 85 bpm Height: 5'8" SpO2: 97% Weight: 147 lbs 04/09/2015 Blood Pressure 1: 118/60 Code : 8480-6 BMI: 22.7 Code : 31284-3 Heart Rate 1 : 72 bpm Height: 5'8" SpO2: 95% Weight: 147 lbs 02/08/2015 Blood Pressure 1: 138/76 Code : 8480-6 BMI: 23.1 Code : 48949-0 Heart Rate 1 : 80 bpm Height: 5'8" SpO2: 98% Weight: 150 lbs 12/11/2014 Blood Pressure 1: 120/74 Code : 8480-6 BMI: 22.1 Code : 89974-6 Heart Rate 1 : 92 bpm Height: 5'8" SpO2: 96% Weight: 143 lbs 11/09/2014 Blood Pressure 1: 100/64 Code : 8480-6 BMI: 21.6 Code : 78596-3 Heart Rate 1 : 88 bpm Height: 5'8" Weight: 140 lbs 10/23/2014 Blood Pressure 1: 138/82 Code : 8480-6 BMI: 23.6 Code : 49255-2 Heart Rate 1 : 86 bpm Height: 5'8" Weight: 153 lbs 10/16/2014 Blood Pressure 1: 128/60 Code : 8480-6 BMI: 23.3 Code : 32175-0 Heart Rate 1 : 91 bpm Height: 5'8" SpO2: 99% Weight: 151 lbs 10/09/2014 Blood Pressure 1: 120/60 Code : 8480-6 BMI: 23.0 Code : 07613-6 Heart Rate 1 : 96 bpm Height: 5'8" SpO2: 97% Weight: 149 lbs 09/14/2014 Blood Pressure 1: 132/72 Code : 8480-6 BMI: 22.1 Code : 94347-6 Heart Rate 1 : 84 bpm Height: 5'8" SpO2: 97% Weight: 143 lbs 08/11/2014 Blood Pressure 1: 134/74 Code : 8480-6 BMI: 24.1 Code : 81768-4 Heart Rate 1 : 88 bpm Height: 5'8" Weight: 156 lbs 07/12/2014 Blood Pressure 1: 122/62 Code : 8480-6 BMI: 22.7 Code : 46148-5 Heart Rate 1 : 76 bpm Height: [...] Dr. Blancas in [place] and Neurosurgeon in [place] in the past neck pain Significant Medical Conditions spinal stenosis 07/12/2014 has osteoarthritis Advance Directives No Advance Directive data Encounters Encounter Performer Location Codes Date ([id number]) 87931 EST. PATIENT, LEVEL IV Diagnosis: Essential (primary) hypertension[ICD10: I10] Diagnosis: Hypo-osmolality and hyponatremia[ICD10: E87.1] Diagnosis: Chronic pain syndrome[ICD10: G89.4] [facility] CPT-4: 36643 03/03/2018 ([id number]) 86213 EST. PATIENT, LEVEL III Diagnosis: Cough[ICD10: R05] Diagnosis: Acute bronchitis, unspecified[ICD10: J20.9] Diagnosis: Chronic obstructive pulmonary disease, unspecified[ICD10: J44.9] [facility] CPT-4: 71104 02/12/2018 ([id number]) 42922 EST. PATIENT, LEVEL IV Diagnosis: Chronic pain syndrome[ICD10: G89.4] Diagnosis: Cough[ICD10: R05] Diagnosis: Diarrhea, unspecified[ICD10: R19.7] Diagnosis: Generalized edema[ICD10: R60.1] [facility] CPT-4: 91757 02/09/2018 ([id number]) 94727 EST. PATIENT, LEVEL III Diagnosis: Generalized edema[ICD10: R60.1] Diagnosis: Lymphedema, not elsewhere classified[ICD10: I89.0] Araceli Silva MD, [facility] CPT-4: 72598 01/14/2018 ([id number]) 87971 EST. PATIENT, LEVEL IV Diagnosis: Essential (primary) hypertension[ICD10: I10] Diagnosis: Generalized edema[ICD10: R60.1] Diagnosis: Chronic pain syndrome[ICD10: G89.4] Araceli Silva MD, [facility] CPT-4: 30146 12/24/2017 ([id number]) 37035 EST. PATIENT, LEVEL III Diagnosis: Lymphedema, not elsewhere classified[ICD10: I89.0] Araceli Silva MD, [facility] CPT-4: 40623 11/30/2017 ([id number]) 53208 EST. PATIENT, LEVEL III Diagnosis: Generalized edema[ICD10: R60.1] Ila Silva MD, [facility] CPT-4: 80889 11/27/2017 ([id number]) 96814 EST. PATIENT, LEVEL IV Diagnosis: Localized edema[ICD10: [...] in left shoulder[ICD10: M25.512] Araceli Silva MD, [facility] CPT-4: 00062 11/10/2017 ([id number]) 60513 EST. PATIENT, LEVEL IV Diagnosis: Localized edema[ICD10: [...] in left shoulder[ICD10: M25.512] Araceli Silva MD, [facility] CPT-4: 14542 10/29/2017 ([id number]) 73214 EST. PATIENT, LEVEL IV Diagnosis: Essential (primary) [...] Diagnosis: Localized edema[ICD10: R60.0] Araceli Silva MD, [facility] CPT- 4: 24940 10/20/2017 ([id number]) 98214 EST. 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 PATIENT, LEVEL IV Diagnosis: Primary osteoarthritis, left shoulder[ICD10: M19.012] Diagnosis: Pain in left shoulder[ICD10: M25.512] Diagnosis: Lymphedema, not elsewhere classified[ICD10: I89.0] Diagnosis: Localized edema[ICD10: R60.0] Diagnosis: Chronic atrial fibrillation[ICD10: I48.2] Araceli Silva MD, [facility] CPT-4: 79709 09/15/2017 ([id number]) 58548 EST. PATIENT, LEVEL III Diagnosis: Primary osteoarthritis, left shoulder[ICD10: M19.012] Diagnosis: Pain in left shoulder[ICD10: M25.512] Diagnosis: Hemarthrosis, left shoulder[ICD10: M25.012] Araceli Silva MD, [facility] CPT-4: 85330 08/31/2017 ([id number]) 63814 EST. PATIENT, LEVEL IV Diagnosis: Essential (primary) hypertension[ICD10: I10] Diagnosis: Chronic pain syndrome[ICD10: G89.4] Diagnosis: Primary osteoarthritis, right shoulder[ICD10: M19.011] Diagnosis: Primary osteoarthritis, left shoulder[ICD10: M19.012] Diagnosis: Hemarthrosis, left shoulder[ICD10: M25.012] Diagnosis: Hemarthrosis, right shoulder[ICD10: M25.011] Diagnosis: Pain in right shoulder[ICD10: M25.511] Diagnosis: Pain in left shoulder[ICD10: M25.512] Araceli Silva MD, [facility] CPT-4: 58922 08/05/2017 ([id number]) 91212 EST. PATIENT, LEVEL III Diagnosis: Localized edema[ICD10: R60.0] Araceli Silva MD, [facility] CPT- 4: 25382 07/23/2017 ([id number]) 11119 EST. PATIENT, LEVEL III Diagnosis: Rheumatoid arthritis without rheumatoid factor, left shoulder[ICD10: M06.012] Diagnosis: Hemarthrosis, left shoulder[ICD10: M25.012] Araceli Silva MD, [facility] CPT-4: 97603 07/09/2017 ([id number]) 43101 EST. PATIENT, LEVEL III Diagnosis: Chronic pain syndrome[ICD10: G89.4] Diagnosis: Rheumatoid arthritis without rheumatoid factor, left shoulder[ICD10: M06.012] Diagnosis: Hemarthrosis, left shoulder[ICD10: M25.012] Diagnosis: Lymphedema, not elsewhere classified[ICD10: I89.0] Araceli Silva MD, [facility] CPT-4: 47882 07/01/2017 ([id number]) 57709 EST. PATIENT, LEVEL III Diagnosis: Chronic pain syndrome[ICD10: G89.4] Araceli Silva MD [facility] CPT-4: 32674 06/24/2017 ([id number]) 48188 EST. 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 PATIENT, LEVEL III Diagnosis: Pain in left shoulder[ICD10: M25.512] Diagnosis: Hemarthrosis, right shoulder[ICD10: M25.011] Diagnosis: Hemarthrosis, left shoulder[ICD10: M25.012] Maricel Silva MD, [facility] CPT-4: 44861 06/01/2017 ([id number]) 44527 EST. PATIENT, LEVEL II Diagnosis: Pain in right shoulder[ICD10: M25.511] Diagnosis: Hemarthrosis, right shoulder[ICD10: M25.011] Araceli Silva MD, [facility] CPT-4: 22394 04/02/2017 ([id number]) 41457 EST. 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 PATIENT, LEVEL IV Diagnosis: Primary osteoarthritis, right shoulder[ICD10: M19.011] Diagnosis: Chronic pain syndrome[ICD10: G89.4] Diagnosis: Essential (primary) hypertension[ICD10: I10] Diagnosis: Hypomagnesemia[ICD10: E83.42] Araceli Silva MD, [facility] CPT- 4: 96485 01/08/2017 ([id number]) 38828 EST. PATIENT, LEVEL IV Diagnosis: Encounter for immunization[ICD10: Z23] Diagnosis: Chronic pain syndrome[ICD10: G89.4] Diagnosis: Essential (primary) hypertension[ICD10: I10] Araceli Silva MD, [facility] CPT-4: 06815 12/08/2016 ([id number]) 78945 EST. PATIENT, LEVEL III Diagnosis: Urge incontinence[ICD10: N39.41] Diagnosis: Chronic pain syndrome[ICD10: G89.4] Diagnosis: Lymphedema, not elsewhere classified[ICD10: I89.0] Araceli Silva MD, [facility] CPT-4: 96495 11/17/2016 17714 EST. 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 PATIENT, LEVEL IV Diagnosis: Essential (primary) hypertension[ICD10: I10] Diagnosis: Other chronic pain[ICD10: G89.29] Diagnosis: Localized edema[ICD10: R60.0] Diagnosis: Urge incontinence[ICD10: N39.41] Araceli Silva MD, [facility] CPT-4: 86672 11/05/2016 ([id number]) 94657 EST. 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 PATIENT, LEVEL III Diagnosis: Hemarthrosis, right shoulder[ICD10: M25.011] Diagnosis: Pain in right shoulder[ICD10: M25.511] Ila Silva MD, [facility] CPT-4: 83670 10/02/2016 [id number] EST. PATIENT, LEVEL II Diagnosis: Low back pain[ICD10: M54.5] Diagnosis: Sacroiliitis, not elsewhere classified[ICD10: M46.1] Ila Silva MD, [facility] CPT-4: 63775 09/12/2016 ([id number]) 88571 EST. PATIENT, LEVEL III Diagnosis: Hemarthrosis, right shoulder[ICD10: M25.011] Diagnosis: Other chronic pain[ICD10: G89.29] Araceli Silva MD, [facility] CPT-4: 88626 09/08/2016 ([id number]) 09297 EST. PATIENT, LEVEL IV Diagnosis: Other iron deficiency anemias[ICD10: D50.8] Diagnosis: Vitamin D deficiency, unspecified[ICD10: E55.9] Diagnosis: Hypomagnesemia[ICD10: E83.42] Araceli Silva MD, [facility] CPT- 4: 20065 08/26/2016 ([id number]) 66363 EST. PATIENT, LEVEL III Diagnosis: Localized edema[ICD10: R60.0] Araceli Silva MD, [facility] CPT- 4: 06760 08/18/2016 ([id number]) 00205 EST. 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 PATIENT, LEVEL IV Diagnosis: Pain in left shoulder[ICD10: M25.512] Diagnosis: Nocturia[ICD10: R35.1] Maricel Silva MD [facility] CPT-4: 04326 07/14/2016 34555 EST. PATIENT, LEVEL III Diagnosis: Pain in left shoulder[ICD10: M25.512] Maricel Silva MD, [facility] CPT-4: 16593 07/04/2016 ([id number]) 50084 EST. 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 PATIENT, LEVEL II Diagnosis: Insect bite (nonvenomous) of right upper arm, initial encounter[ICD10 : S40.861A] Ila Silva MD, [facility] CPT-4: 90648 11/01/2015 ([id number]) 60813 EST. 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 PATIENT, LEVEL III Diagnosis: Contusion of left upper arm, subsequent encounter[ICD10: S40.022D] Araceli Silva MD, [facility] CPT-4: 31788 2015 72961 EST. PATIENT, LEVEL III Diagnosis: Cellulitis of left upper limb[ICD10: L03.114] Maricel Silva MD, [facility] CPT-4: 07162 07/18/2015 ([id number]) 22695 EST. 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 PATIENT, LEVEL IV Diagnosis: Essential (primary) hypertension[ICD10: I10] Diagnosis: Vitamin D deficiency, unspecified[ICD10: E55.9] Diagnosis: Mixed hyperlipidemia[ICD10: E78.2] Diagnosis: Age-related osteoporosis with current pathological fracture, unspecified site, sequela[ICD10: M80.00XS] Araceli Silva MD, [facility] CPT- 4: 51897 02/08/2015 ([id number]) 23638 EST. PATIENT, LEVEL IV Diagnosis: Essential (primary) hypertension[ICD10: I10] Diagnosis: Localized edema[ICD10: R60.0] Diagnosis: Primary osteoarthritis, unspecified site[ICD10: M19.91] Araceli Silva MD, [facility] CPT-4: 13209 12/11/2014 ([id number]) 47657 EST. PATIENT, LEVEL III Diagnosis: EDEMA[ICD9: 782.3] Diagnosis: ESSENTIAL HYPERTENSION[ICD9: 401.9] Araceli Silva MD, [facility] CPT-4: 75674 11/09/2014 ([id number]) 24411 EST. PATIENT, LEVEL III Diagnosis: Leg pain[ICD9: 729.5] Diagnosis: Ulcer of toe[ICD9: 707.15] Araceli Silva MD, [facility] CPT- 4: 05853 10/23/2014 ([id number]) 52945 EST. PATIENT, LEVEL III Diagnosis: Ulcer of toe[ICD9: 707.15] Araceli Silva MD [facility] CPT- 4: 13017 10/16/2014 17940 EST. PATIENT, LEVEL II Diagnosis: Ulcer of toe[ICD9: 707.15] Ila Brent Silva MD, [facility] CPT-4: 54324 10/09/2014 ([id number]) 10167 EST. PATIENT, LEVEL III Diagnosis: EDEMA[ICD9: 782.3] Araceli Silva MD [facility] CPT-4: 09641 09/14/2014 ([id number]) 66736 EST. PATIENT, LEVEL IV Diagnosis: EDEMA[ICD9: 782.3] Diagnosis: ESSENTIAL HYPERTENSION[ICD9: 401.9] Araceli Silva MD, [facility] CPT-4: 78678 08/11/2014 ([id number]) OFFICE VISIT, NEW - LEVEL 4 Diagnosis: HYPERLIPIDEMIA[ICD9: 272.4] Diagnosis: VITAMIN D DEFICIENCY[ICD9: 268.9] Diagnosis: Osteoporosis[ICD9: 733.00] Diagnosis: Esophageal reflux[ICD9: 530.81] Diagnosis: Chronic pain[ICD9: 338.29] Araceli Silva MD, [facility] CPT- 4: 13305 07/12/2014 Plan of Care Planned Activity Notes [...] with fentanyl 03/03/2018 Appointment: Araceli Silva WPtel: [address] [place], [place] [address] (15 min) Moderate 03/03/2018 Patient Education: Patient [...] - will send rx to [facility] 02/12/2018 Appointment: Ila Kennedy WPtel: [facility]6 [address] (30 min) Complex 02/12/2018 Patient Education: Patient Medication Summary Completed 02/12/2018 Visit Plan: Chronic Pain Syndrome - pt has chronic pain - has been maintained on current medications, has not sought out other medications , only uses PRN pain medications as directed, and understands the consequences of over-medication. Ntxwv-jdxmisflae-vuazxzxn with lasix/metolazone -if swelling /weight increase, okay to increase metolazone to daily as directed Cough- okay for robitussin dm Diarrhea- rx for lomotil written and instructed on use-follow up in 3 weeks, sooner if needed. Call with any concerns. 02/09/2018 Appointment: Ila Kennedy WPtel: [facility] [place] [phone] (30 min) Complex 02/09/2018 Patient Education: Patient Medication Summary Completed 02/09/2018 Appointment: Araceli Silva WPtel: [facility] (15 min) Moderate 02/04/2018 Visit Plan: Edema/Lymphedema [...] of over-medication. 01/14/2018 Appointment: [phone] [facility] (15 min) Moderate 01/14/2018 Patient Education: Patient [...] oxycodone scheduled. 12/24/2017 Appointment: [phone] [facility] (30 min) Complex 12/24/2017 Patient Education: Patient [...] output. 11/30/2017 Appointment: [facility]el[phone] [facility] (15 min) Moderate 11/30/2017 Patient Education: Patient [...] of over-medication. 11/10/2017 Appointment: Araceli Silva WPtel: [facility] (15 min) Moderate 11/10/2017 Patient Education: Patient [...] hands/fingers. We will contact [employer] in [place] for paperwork regarding the scooter. 10/29/2017 Appointment: Araceli Silva WPtel: [facility] [place] (15 min) Moderate 10/29/2017 Patient Education: [...] this time. 10/20/2017 Appointment: Araceli Silva WPtel: [address] [place], [place] [address] [place] (30 min) Complex 10/20/2017 Patient Education: [...] drained today. 09/29/2017 Appointment: [facility]el[phone] [facility] (15 min) Moderate 09/29/2017 Patient Education: Patient [...] Summary Completed 08/21/2017 Appointment: [facility]aceli Silva [facility]Ptel: [phone] [facility] [place] (15 min) Moderate 08/20/2017 Visit Plan: Hemarthrosis shoulders - 250mL from left shoulder and 100mL from right shoulder with 1ml kenalog injected into right and left shoulders - Left and right shoulder pain and swelling, swelling into arms and left breast -pt to continue with use of compression sleeves. [id number] sep 2018 bristol 2ml kenalog 08/12/2017 Appointment: Araceli Silva [facility]Ptel[facility] [phone] [facility] (15 min) Moderate 08/12/2017 Patient Education: Patient [...] edema. 08/05/2017 Appointment: [facility] Silva [facility]Ptel[phone] [facility] (15 min) Moderate 08/05/2017 Patient Education: Patient [...] edema. 07/23/2017 Appointment: [facility] Silva [facility]Ptel[facility] [phone] [facility] (15 min) Moderate 07/23/2017 Patient Education: Patient [...] symptoms. 07/09/2017 Appointment: Araceli Silva WPtel: [address] [facility] (15 min) Moderate 07/09/2017 Patient Education: [...] symptoms. 07/01/2017 Appointment: Araceli Silva WPtel: [address] [facility] [place] (15 min) Moderate 07/01/2017 Patient Education: Patient Medication Summary Completed 07/01/2017 Visit Plan: Chronic Pain Syndrome - pt has chronic pain - has been maintained on current medications, has not sought out other medications , only uses PRN pain medications as directed, and understands the consequences of over-medication. 06/24/2017 Appointment: Araceli Silva WPtel: [address] [facility] [place] (15 min) Moderate 06/24/2017 Patient [...] peripheral edema. 06/17/2017 Appointment: Araceli Silva WPtel: [facility] (30 min) Complex 06/17/2017 Patient Education: Patient Medication Summary Completed 06/17/2017 Appointment: Araceli Silva WPtel: [address] [place], [place] [address] (15 min) Moderate 06/08/2017 Care Plan: Referral Order SNOMED-CT : [id number] Pending 06/02/2017 Visit Plan: Left and right [...] peripheral edema. 06/01/2017 Appointment: Maricel Gee WPtel: [facility] [place] (30 min) Complex 06/01/2017 [...] shoulder 04/02/2017 Appointment: [facility]eli Silva [facility]Ptel: [phone] [facility] (15 min) Moderate 04/02/2017 Patient Education: Patient [...] upset. 03/12/2017 Appointment: [facility] Silva [facility]Ptel[phone] [facility] (15 min) Moderate 03/12/2017 Patient Education: Patient [...] ROMIE. 01/08/2017 Appointment: Araceli Silva WPtel: 101 [facility] (15 min) Moderate 01/08/2017 Patient Education: Patient [...] Remicaide. 12/08/2016 Appointment: Araceli Silva WPtel: 101 [facility] (15 min) Moderate 12/08/2016 Patient Education: Patient [...] now 11/17/2016 Appointment: Araceli Silva WPtel: 1013 [facility] (15 min) Moderate 11/17/2016 Patient Education: [...] over-medication. 11/10/2016 Appointment: Maricel Gee WPtel: 101 [facility] (30 min) Complex 11/10/2016 [...] steroids, immunosuppression. 11/05/2016 Appointment: Araceli Silva WPtel: [facility]5 [facility] [place] (15 min) Moderate 11/05/2016 Patient Education: [...] cbc today. 10/07/2016 Appointment: Araceli Silva WPtel: [address] [place], [place] [address] (15 min) Moderate 10/07/2016 Patient Education: Patient Medication Summary Completed 10/07/2016 Care Plan: Referral Order SNOMED-CT : [id number] Pending 10/07/2016 Care Plan: Referral Order SNOMED-CT : [id number] Pending 10/07/2016 Visit Plan: Hemarthrosis -right shoulder-only able to drain 5ml of bloody drainage-unable to give oral steroids due to recent GI bleed -will give kenalog injection today in the office-discussed getting OSMO patch 10/02/2016 Appointment: Ila Kennedy WPtel: [address] [place], [place] [phone] [place] (30 min) Complex 10/02/2016 Patient Education: Patient Medication Summary Completed 10/02/2016 Appointment: Araceli Silva WPtel: [address] [place], [place] [address] (15 min) Moderate 09/23/2016 Appointment: Araceli Silva WPtel: [facility]0 [facility] ([facility] Moderate 09/17/2016 Visit Plan: Sacroiliitis - back exercises discussed with the patient, pt to continue with anti-inflammatories. Pt is to call if the symptoms do not improve or if they worsen. Kenalog injection today in the office. 09/12/2016 Appointment: Ila Kennedy WPtel: [facility]6 [phone] [place] (15 min) Moderate 09/12/2016 Patient Education: Patient Medication Summary Completed 09/12/2016 Visit Plan: Hemarthrosis - drain right shoulder. Injection of kenalog 1mL - 40mg - hipix - lot #[id number] , expires oct 2017 Chronic Pain Syndrome [...] of over-medication. 09/08/2016 Appointment: Araceli Silva WPtel: [facility]3 [facility] (15 min) Moderate 09/08/2016 Patient Education: [...] magnesium level 08/26/2016 Appointment: Araceli Silva WPtel: [facility]9 [facility] [place] (15 min) Moderate 08/26/2016 Patient Education: [...] Summary Completed 08/18/2016 Appointment: Araceli Silva WPtel: [facility] (15 min) Moderate 08/13/2016 Appointment: Araceli Silva WPtel: [facility] (15 min) Moderate 08/06/2016 Visit Plan: Chronic [...] the daytime. 07/30/2016 Appointment: Araceli Silva WPtel: [facility]5 [facility] (15 min) Moderate 07/30/2016 Patient Education: Patient Medication Summary Completed 07/30/2016 Visit Plan: Left shoulder pain - improving - pt is to notify clinic if symptoms do not improve, if they worsen, or with any questions or concerns. Nocturia - will give samples, pt is to notify clinic if symptoms do not improve. 07/14/2016 Appointment: Maricel Gee WPtel: [facility]2 [facility] [place] (30 min) Complex 07/14/2016 Patient Education: [...] any dyspnea. 07/04/2016 Appointment: Maricel Gee WPtel: [facility]5 [facility] [place] (30 min) Complex 07/04/2016 Patient Education: [...] over- medication. 06/26/2016 Appointment: Araceli Silva WPtel: [address] [place] [address] [place] (15 min) Moderate 06/26/2016 Patient Education: [...] of over-medication. 05/28/2016 Appointment: Araceli Silva WPtel: [facility]2 [facility] [place] (15 min) Moderate 05/28/2016 Patient Education: Patient Medication Summary Completed 05/28/2016 Patient Education: Hypertension Completed 05/28/2016 Appointment: Araceli Silva WPtel: [facility]6 [facility] [place] (15 min) Moderate 05/12/2016 Appointment: Araceli Silva WPtel: [facility]5 [facility] (15 min) Moderate 04/15/2016 Appointment: Araceli Silva WPtel: [facility]5 [facility] (30 min) Complex 03/25/2016 Visit Plan: Hypertension [...] the premarin. 03/18/2016 Appointment: Araceli Silva WPtel: [facility]5 [facility] (30 min) Complex 03/18/2016 Patient Education: Patient Medication Summary Completed 03/18/2016 Appointment: Araceli Silva WPtel: [facility]5 [facility] (15 min) Moderate 02/19/2016 Visit Plan: [...] of over-medication. 01/29/2016 Appointment: Araceli Silva WPtel: [facility]5 [facility] (15 min) Moderate 01/29/2016 Patient Education: Patient Medication Summary Completed 01/29/2016 Visit Plan: Discussed MRI of the neck - pt is interested in doing this - however, not prior to changing her medication first to see if this helps her pain 01/01/2016 Appointment: Araceli Silva WPtel: [phone] [facility] (15 min) Moderate 01/01/2016 Patient Education: Patient Medication Summary Completed 01/01/2016 Patient Education: Hypertension Completed 01/01/2016 Appointment: Araceli Silva WPtel: [facility]0 [facility] (15 min) Moderate 12/03/2015 Visit Plan: [...] nonhealing. 11/01/2015 Appointment: Ila Kennedy [facility]Ptel: [phone] [place] (15 min) Moderate 11/01/2015 Patient Education: Patient Medication Summary Completed 11/01/2015 Visit Plan: Chronic Pain Syndrome - pt has chronic pain - has been maintained on current medications, has not sought out other medications , only uses PRN pain medications as directed, and understands the consequences of over-medication. Muscle spasms - recommended muscle rub. 09/04/2015 Appointment: Araceli Silva WPtel: [facility]6 [facility] (15 min) Moderate 09/04/2015 Patient Education: Patient Medication Summary Completed 09/04/2015 Visit Plan: Ecchymosis/hematoma - improving - discussed natural progression of hematomas - watchful waiting. 2015 Appointment: Araceli Silva WPtel: [facility]0 [facility] (15 min) Moderate 2015 Patient Education: Patient Medication Summary Completed 2015 Visit Plan: Cellulitis - continue with oral antibiotics as previously directed, return to clinic as previously directed, call for acute change in symptoms, worsening redness, warmth, discharge. 07/18/2015 Appointment: Ila Kennedy WPtel: [facility]7 [phone] (30 min) Complex 07/18/2015 [...] center/surgery center. 07/02/2015 Appointment: Araceli Silva WPtel: [facility]1 [facility] (15 min) Moderate 07/02/2015 Patient Education: [...] removal process. 04/09/2015 Appointment: Araceli Silva WPtel: [address] [place], [place] [address] (15 min) Moderate 04/09/2015 Patient Education: Patient [...] d supplementation. 02/08/2015 Appointment: Araceli Silva WPtel: [facility] (15 min) Moderate 02/08/2015 Patient Education: Patient [...] the evening. 12/11/2014 Appointment: Araceli Silva WPtel: [facility]9 [facility] (15 min) Moderate 12/11/2014 Patient Education: [...] - improved. 11/09/2014 Appointment: Araceli Silva WPtel: [facility]5 [facility] (15 min) Moderate 11/09/2014 Patient Education: Patient Medication Summary Completed 11/09/2014 Patient Education: Hypertension Completed 11/09/2014 Visit Plan: Leg pain/cellulitis of leg - start on the doxycycline twice daily - take this x 2 weeks, if the symptoms in your leg/ thigh are not completely resolved, there is a refill that is available. start on a probiotic one pill daily ([employer] or [employer]) this will help prevent the development of a bad type of diarrhea that can occur when taking antibiotics. Ulcer of toe - improving. 10/23/2014 Appointment: Araceli Silva WPtel: [facility]5 [facility] (15 min) Moderate 10/23/2014 Patient Education: Patient Medication Summary Completed 10/23/2014 Visit Plan: Ulcer - keep lesion covered, antibiotic ointment to be used, monitor - call if redness increases or starts streaking up the foot. 10/16/2014 Appointment: Araceli Silva WPtel: [facility]1 [facility] (15 min) Moderate 10/16/2014 Patient Education: [...] Medication Summary Completed 10/09/2014 Care Plan: Annel REED Pending 10/09/2014 Visit Plan: Edema - pt has been advised to elevate legs to prevent dependent edema, compression has been recommended to help to naturally decrease peripheral edema. Diuretic use has been discussed and pt has been instructed in appropriate use of such medication as necessary to further attempt to reduce peripheral edema. 09/14/2014 Appointment: Araceli Silva WPtel: [facility] Follow up 09/14/2014 Patient Education: Patient Medication [...] medication. 07/12/2014 Appointment: Araceli Silva [facility]Ptel: [facility] [place] ([place]) New Patient 07/12/2014 Patient Education: [...] Injection of kenalog 1mL - 40mg - hipix - lot #[id number] , expires oct 2017 Chronic Pain Syndrome [...] start on a probiotic one pill daily ([employer] or [employer]) this will help prevent the development of a bad type of diarrhea that can occur when taking antibiotics. . Leg pain/cellulitis of leg - start on the doxycycline twice daily - take this x 2 weeks, if the symptoms in your leg/thigh are not completely resolved, there is a refill that is available. start on a probiotic one pill daily ([employer] or [employer]) this will help prevent the development of [...] d supplementation. . Left shoulder pain - ecchymosis of [...] understands the consequences of over- medication. . Hypertension - well controlled - [...] symptoms of worsening infection or nonhealing. . Iron deficiency Anemia - recommended pt [...] patient stabilized during the removal process. . Left shoulder pain - improving - [...] pain syndrome - continue with fentanyl . Chronic Pain Syndrome - pt has [...] monitor her intake and output. . Hemarthrosis -right shoulder-only able to drain 5ml of bloody drainage-unable to give oral steroids due to recent GI bleed-will give kenalog injection today in the office-discussed getting OSMO patch . Hemarthrosis - pt was prepped and [...] continue with use of compression sleeves. . Urge Incontinence - continue with myrbetric [...] severe RA of hands/fingers. We will contact [employer] in [place] for paperwork regarding the scooter. OKAY FOR ROBITUSSIN DM TO USE NEEDED [...] directed, and understands the consequences of over-medication. Bunhe-dtzhxtjbid-qhmfkdyq with lasix/metolazone -if swelling/weight increase, okay to increase metolazone to daily as directed Cough- okay for robitussin dm Diarrhea- rx for lomotil written and instructed on use-follow up in 3 weeks, sooner if needed. Call with any concerns. . Hypertension - well controlled - continue [...] of breath -will send rx to [facility] for allergies . OA with [...] topical medication. Anemia - check cbc today. next mammogram will be due in Oct. [...] to continue with use of compression sleeves. [id number] sep 2018 manuel 2ml kenalog . Edema/Lymphedema - prn metalozone [...] abx. Patient verbalized understanding of plan. . Hypertension [...] office. two old goats muscle rub from [employer] and home. . Chronic Pain Syndrome - [...] stable on fentanyl - monitor symptoms. . Discussed MRI of the neck - [...] pt through the cancer center/surgery center. . Hyperlipidemia - pt has been counseled [...]
--- OUTSIDE RECORDS SUMMARY | 2018-06-03 17:32 | XMS REPORT | CCD ---
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 Name Role Phone PP Unavailable CCM Unavailable Summary Purpose Interface Exchange Insurance Providers Payer name Policy type / Coverage type Covered democrat ID Effective Begin Date Effective End Date [place] [employer] Medicare Part B [id number] 2017 Unknown AETNA Medicare Part B [id number] Unknown Family history Father Diagnosis Age At [...] Unknown Retired 07/12/[address]: 7450400 Quit over 10 years ago 1967 07/12/2014 [...] ICD-9: 786.2 ICD-10: R05 Active 02/09/2018 Unknown Chronic pain syndrome ICD-9: 338.4 ICD-10: [...] Cough ICD-9: 786.2 ICD-10: R05 02/09/2018 Active Chronic pain syndrome ICD-9: 338.4 ICD-10: [...] Fill Instructions Lasix 40 mg tablet RxNorm: 601873 Tablet(s) PO TAKE 1 TABLET BY MOUTH TWICE DAILY 03/04/2018 No Stop Date Active fentanyl 100 mcg/hr transdermal patch RxNorm: 395676 1 Patch TD Q72H use with 25mcg/hr patch 03/03/2018 04/01/2018 Active potassium chloride ER 10 mEq capsule,extended release RxNorm: 682118 2 Capsule(s) PO TID 03/03/2018 06/30/2018 Active albuterol sulfate 2.5 mg/3 mL (0.083 %) solution for nebulization RxNorm: 661238 3 Milliliter(s) INH Q4 PRN 02/18/2018 No Stop Date Active cefdinir 300 mg capsule RxNorm: 080142 1 Capsule(s) PO BID 02/24/2018 Inactive cefdinir 300 mg capsule RxNorm: 743823 1 Capsule(s) PO BID 02/17/2018 Inactive Flonase Allergy Relief 50 mcg/actuation nasal spray, suspension RxNorm: 5404298 2 [place] NASAL daily 02/12/20182017 Inactive Zithromax Z-Humberto 250 mg tablet RxNorm: 053184 1 Tablet(s) PO UD 02/12/2018 02/16/2018 Inactive Lomotil 2.5 mg-0.025 mg tablet RxNorm: 0645745 1 Tablet(s) PO BID PRN 02/09/2018 No Stop Date Active fentanyl 25 mcg/hr transdermal patch RxNorm: 078167 1 Patch TD Q72H use with 100mcg patch for a total of 125mcg daily 02/09/2018 03/10/2018 Active oxycodone 30 mg tablet RxNorm: 9567123 1/2 Tablet(s) PO Q6 03/14/2018 Active metolazone 10 mg tablet RxNorm: 171612 1 Tablet(s) PO QAM as needed uncontrolled edema 01/14/2018 03/14/2018 Active fentanyl 100 mcg/hr transdermal patch RxNorm: 694175 1 Patch TD Q72H use with 25mcg/hr patch 01/14/2018 02/12/2018 Inactive fentanyl 25 mcg/hr transdermal patch RxNorm: 428238 1 Patch TD Q72H use with 100mcg patch for a total of 125mcg daily 01/14/2018 02/08/2018 Inactive metolazone 10 mg tablet RxNorm: 211504 1 Tablet(s) PO every other day as needed uncontrolled edema 01/07/2018 01/13/2018 Inactive metolazone 10 mg tablet RxNorm: 178946 1 Tablet(s) PO every other day as needed uncontrolled edema 01/07/2018 01/06/2018 Inactive Cipro 500 mg tablet RxNorm: 883185 1 Tablet(s) PO BID 201701/05/2018 Inactive Cipro 500 mg tablet RxNorm: 710738 1 Tablet(s) PO BID 201701/15/2018 Inactive Cardizem CD 360 mg capsule,extended release RxNorm: 569800 1 Capsule(s) PO daily 01/05/2018 05/04/2018 Active potassium chloride ER 10 mEq tablet,extended release(part/ cryst) RxNorm: 0436887 2 Capsule(s) PO TID when taking lasix 01/05/2018 05/04/2018 Active potassium chloride ER 10 mEq capsule,extended release RxNorm: 898507 Capsule(s) TAKE 1 CAPSULE BY MOUTH TWICE DAILY WHEN TAKING LASIX (FUROSEMIDE) 11/27/2017 03/02/2018 Inactive potassium chloride ER 10 mEq capsule,extended release RxNorm: 397922 Capsule(s) TAKE 1 CAPSULE BY MOUTH TWICE DAILY WHEN TAKING LASIX (FUROSEMIDE) 11/27/2017 11/26/2017 Inactive fentanyl 25 mcg/hr transdermal patch RxNorm: 578043 1 Patch TD Q72H use with 100mcg patch for a total of 125mcg daily 11/27/2017 12/26/2017 Inactive bumetanide 0.5 mg tablet RxNorm: 926251 1 Tablet(s) PO daily 12/23/2017 Inactive in the afternoon x 3 days then as needed per Dr Silva fentanyl 100 mcg/hr transdermal patch RxNorm: 602581 1 Patch TD Q72H use with 25mcg/hr patch 11/27/2017 12/26/2017 Inactive oxycodone 30 mg tablet RxNorm: 9503976 1/2 Tablet(s) PO Q6 12/27/2017 Inactive fentanyl 100 mcg/hr transdermal patch RxNorm: 028980 1 Patch TD Q72H use with 25mcg/hr patch 10/29/2017 11/26/2017 Inactive Lasix 20 mg tablet RxNorm: 558605 TAKE 1 TABLET BY MOUTH TWICE DAILY 10/29/2017 03/03/2018 Inactive fentanyl 25 mcg/hr transdermal patch RxNorm: 366243 1 Patch TD Q72H use with 100mcg patch for a total of 125mcg daily 10/29/2017 11/26/2017 Inactive pantoprazole 40 mg tablet,delayed release RxNorm: 954252 Tablet(s) Take 1 tablet by mouth daily 10/21/2017 04/18/2018 Active - Ref: [id number] potassium chloride ER 10 mEq capsule,extended release RxNorm: 754080 TAKE 1 CAPSULE BY MOUTH TWICE DAILY WHEN TAKING LASIX (FUROSEMIDE) 10/09/2017 11/26/2017 Inactive fentanyl 25 mcg/hr transdermal patch RxNorm: 873019 1 Patch TD Q72H use with 100mcg patch for a total of 125mcg daily 10/01/2017 10/28/2017 Inactive fentanyl 100 mcg/hr transdermal patch RxNorm: 802775 1 Patch TD Q72H use with 25mcg/hr patch 10/01/2017 10/28/2017 Inactive potassium chloride ER 10 mEq tablet,extended release(part/ cryst) RxNorm: 5938311 1 Capsule(s) PO BID when taking lasix 09/22/2017 01/04/2018 Inactive fentanyl 100 mcg/hr transdermal patch RxNorm: 235508 1 Patch TD Q72H use with 25mcg/hr patch 08/31/2017 09/29/2017 Inactive Kenalog 40 mg/mL suspension for injection RxNorm: 6102604 1 Milliliter(s) Inj 08/31/2017 08/31/2017 Inactive fentanyl 25 mcg/hr transdermal patch RxNorm: 732955 1 Patch TD Q72H use with 100mcg patch for a total of 125mcg daily 08/31/2017 09/29/2017 Inactive oxycodone 30 mg tablet RxNorm: 4614066 1/2 Tablet(s) PO Q6 04/201710/28/2017 Inactive cyanocobalamin (vit B-12) 1,000 mcg/mL injection solution RxNorm: 207608 1 Milliliter(s) Inj monthly 08/21/201708/15 Active please provide her with syringe/needle for injection cyanocobalamin (vit B-12) 1,000 mcg/mL injection solution RxNorm: 835722 1 Milliliter(s) Inj monthly 08/21/201708/20 Inactive please provide her with syringe/needle for injection Kenalog 40 mg/mL suspension for injection RxNorm: 9715608 2 Milliliter(s) Inj 1mL in each shoulder 08/21/2017 08/21/2017 Inactive cyanocobalamin (vit B-12) 1,000 mcg/mL injection solution RxNorm: 224752 1 Milliliter(s) Inj monthly 08/21/201708/20 Inactive please provide her with syringe/needle for injection Kenalog 40 mg/mL suspension for injection RxNorm: 0754947 2 Milliliter(s) Inj UD 08/12/2017 08/12/2017 Inactive fentanyl 25 mcg/hr transdermal patch RxNorm: 831163 1 Patch TD Q72H use with 100mcg patch for a total of 125mcg daily 08/05/2017 08/30/2017 Inactive fentanyl 100 mcg/hr transdermal patch RxNorm: 691858 1 Patch TD Q72H use with 25mcg/hr patch 08/05/2017 08/30/2017 Inactive Kenalog 40 mg/mL suspension for injection RxNorm: 7130591 2 Milliliter(s) Inj 1mL per shoulder 08/05/2017 08/05/2017 Inactive clindamycin HCl 150 mg capsule RxNorm: 954551 1 Capsule(s) PO QID Dr Shultz prescribed 07/23/2017 07/29/2017 Inactive prednisone 5 mg tablet RxNorm: 701141 1 Tablet(s) PO daily 11/201707/03/2018 Active fentanyl 25 mcg/hr transdermal patch RxNorm: 654234 1 Patch TD Q72H use with 100mcg patch for a total of 125mcg daily 07/01/2017 07/30/2017 Inactive Lasix 20 mg tablet RxNorm: 847789 1 Tablet(s) PO BID 201710/28/2017 Inactive fentanyl 100 mcg/hr transdermal patch RxNorm: 745403 1 Patch TD Q72H use with 25mcg/hr patch 07/01/2017 07/30/2017 Inactive potassium chloride ER 10 mEq capsule,extended release RxNorm: 293175 1 Capsule(s) PO BID when taking lasix 07/01/20172017 Inactive oxycodone 30 mg tablet RxNorm: 7307396 1/2 Tablet(s) PO Q6 08/22/2017 Inactive fentanyl 100 mcg/hr transdermal patch RxNorm: 764541 1 Patch TD Q72H use with 25mcg/hr patch 05/07/2017 06/05/2017 Inactive fentanyl 25 mcg/hr transdermal patch RxNorm: 957522 1 Patch TD Q72H use with 100mcg patch for a total of 125mcg daily 05/07/2017 06/05/2017 Inactive fentanyl 100 mcg/hr transdermal patch RxNorm: 798689 1 Patch TD Q72H 04/08/2017 05/06/2017 Inactive fentanyl 25 mcg/hr transdermal patch RxNorm: 240263 1 Patch TD Q72H use with 100mcg patch for a total of 125mcg daily 04/08/2017 05/06/2017 Inactive Kenalog 40 mg/mL suspension for injection RxNorm: 7615473 1.5 Milliliter(s) Inj 04/02/2017 04/02/2017 Inactive fentanyl 100 mcg/hr transdermal patch RxNorm: 225854 1 Patch TD Q72H 03/12/2017 04/07/2017 Inactive fentanyl 25 mcg/hr transdermal patch RxNorm: 238906 1 Patch TD Q72H use with 100mcg patch for a total of 125mcg daily 03/12/2017 04/07/2017 Inactive oxycodone 30 mg tablet RxNorm: 2212848 1/2 Tablet(s) PO Q6 09/201704/07/2017 Inactive cyanocobalamin (vit B-12) 1,000 mcg/mL injection syringe RxNorm: 732927 1 Milliliter(s) Inj monthly 02/16/2017 No Stop Date Active please provide with supplys needed for injection fentanyl 100 mcg/hr transdermal patch RxNorm: 531003 1 Patch TD Q72H 02/06/2017 03/07/2017 Inactive Myrbetriq 50 mg tablet,extended release RxNorm: 0518669 1 Tablet(s) PO QPM 12/11/2016 07/22/2017 Inactive oxycodone 30 mg tablet RxNorm: 9652414 1/2 Tablet(s) PO Q6 10/201601/06/2017 Inactive naproxen 500 mg tablet RxNorm: 231001 1 Tablet(s) PO BID Take 1 tablet by mouth two times daily as needed 12/08/201607/08 Inactive - First Attempt Ref: [id number] Myrbetriq 50 mg tablet,extended release RxNorm: 8760128 1 Tablet(s) PO QPM 11/17/2016 12/10/2016 Inactive fentanyl 100 mcg/hr transdermal patch RxNorm: 790863 1 Patch TD Q72H 11/12/2016 12/11/2016 Inactive Vesicare 10 mg tablet RxNorm: 624279 1 Tablet(s) PO QPM 201611/18/2016 Inactive oxycodone 10 mg tablet RxNorm: 9651464 1-2 Tablet(s) PO Q4 PRN as needed to take between 30mg dose if needed for extra pain control 201612/07/2016 Inactive fentanyl 75 mcg/hr transdermal patch RxNorm: 803972 1 TD Q72H 10/22/2016 11/10/2016 Inactive oxycodone 10 mg tablet RxNorm: 2213359 1-2 Tablet(s) PO Q4 PRN as needed to take between 30mg dose if needed for extra pain control 201611/04/2016 Inactive Kenalog 40 mg/mL suspension for injection RxNorm: 7698875 1 Milliliter(s) Inj 10/02/2016 10/02/2016 Inactive Kenalog 40 mg/mL suspension for injection RxNorm: 9800139 1 Milliliter(s) Inj 09/12/2016 09/12/2016 Inactive cyclobenzaprine 5 mg tablet RxNorm: 885294 1 Tablet(s) PO Q8 as needed muscle spasms 09/11/2016 07/22/2017 Inactive prednisone 10 mg tablets in a dose pack RxNorm: 731440 1 Tablet(s) PO UD 09/09/2016 06/23/2017 Inactive potassium chloride ER 10 mEq capsule,extended release RxNorm: 842166 1 Capsule(s) PO BID as needed when taking lasix 08/26/2016 06/30/2017 Inactive Lasix 20 mg tablet RxNorm: 391410 1 Tablet(s) PO BID daily x 10 days then as needed edema 08/26/2016 12/23/2016 Inactive naproxen 500 mg tablet RxNorm: 271263 Take 1 tablet by mouth two times daily as needed 08/18/2016 11/15/2016 Inactive - First Attempt Ref: [id number] Lasix 20 mg tablet RxNorm: 707487 1 Tablet(s) PO QAM daily x 10 days then as needed edema 08/18/2016 08/25/2016 Inactive Vesicare 5 mg tablet RxNorm: 816733 1 Tablet(s) PO QPM 201611/04/2016 Inactive potassium chloride ER 10 mEq capsule,extended release RxNorm: 766043 1 Capsule(s) PO QAM as needed when taking lasix 08/18/2016 08/25/2016 Inactive Myrbetriq 25 mg tablet,extended release RxNorm: 7995990 1 Tablet(s) PO QHS 07/14/2016 07/29/2016 Inactive pantoprazole 40 mg tablet,delayed release RxNorm: 628014 Take 1 tablet by mouth daily 06/30/2016 12/26/2016 Inactive - Ref: [id number] Embeda 20 mg-0.8 mg capsule, extend release, oral only RxNorm: 332449 1 Capsule(s ) PO daily 06/04/2016 06/03/2016 Inactive Embeda 20 mg-0.8 mg capsule, extend release, oral only RxNorm: 299666 1 Capsule(s ) PO daily 06/04/2016 07/01/2016 Inactive oxycodone 10 mg tablet RxNorm: 3231313 1 Tablet(s) PO QID as needed to take between 30mg dose if needed for extra pain control 201606/10/2016 Inactive oxycodone 30 mg tablet RxNorm: 3373368 1 Tablet(s) PO Q6 201611/04/2016 Inactive cyanocobalamin (vit B-12) 1,000 mcg/mL injection solution RxNorm: 701378 1 Milliliter(s) Inj monthly 02/22/201602/15 Inactive she also needs syringes/ needles for this solution QS oxycodone 30 mg tablet RxNorm: 7181367 1 Tablet(s) PO Q6 201503/19/2016 Inactive oxycodone 10 mg tablet RxNorm: 8977485 1 Tablet(s) PO QID as needed to take between 30mg dose if needed for extra pain control 201503/19/2016 Inactive oxycodone 10 mg tablet RxNorm: 7216507 1 Tablet(s) PO QID as needed to take between 30mg dose if needed for extra pain control 201502/18/2016 Inactive oxycodone 30 mg tablet RxNorm: 1883078 1 Tablet(s) PO Q6 201502/18/2016 Inactive pantoprazole 40 mg tablet,delayed release RxNorm: 210003 Take 1 tablet by mouth daily 01/22/2016 06/29/2016 Inactive - First Attempt Ref: [id number] oxycodone 30 mg tablet RxNorm: 2519061 1 Tablet(s) PO Q6 201501/28/2016 Inactive oxycodone 10 mg tablet RxNorm: 6755035 1 Tablet(s) PO QID as needed take between 20mg dose if needed for extra pain control 11/07/2015 12/06/2015 Inactive oxycodone 20 mg tablet RxNorm: 1578930 1 Tablet(s) PO Q6 as needed 11/07/2015 12/31/2015 Inactive doxycycline hyclate 100 mg tablet RxNorm: 879114 1 Tablet(s) PO BID 11/01/2015 11/10/2015 Inactive potassium chloride ER 10 mEq capsule,extended release RxNorm: 111296 1 Capsule(s) PO TIW as needed when taking lasix 09/04/2015 08/17/2016 Inactive Voltaren 1 % topical gel RxNorm: 536544 2 Gram(s) TOP QID 08/2909/03/2015 Inactive pa approved Voltaren 1 % topical gel RxNorm: 531362 2 Gram(s) TOP QID 08/0808/29/2015 Inactive naproxen 500 mg tablet RxNorm: 114409 1 Tablet(s) PO BID 201508/17/2016 Inactive naproxen 500 mg tablet RxNorm: 363748 1 Tablet(s) PO BID 201508/08/2015 Inactive doxycycline hyclate 100 mg tablet RxNorm: 058268 1 Tablet(s) PO BID do not take calcium/vitamin d while on antibiotic 07/18/2015 07/31/2015 Inactive Vitamin D2 50,000 unit capsule RxNorm: 965017 1 Capsule(s) PO QW 07/02/2015 11/18/2015 Inactive Premarin 0.3 mg tablet RxNorm: 452691 1 Tablet(s) PO daily 12/201505/09/2015 Inactive Premarin 0.3 mg tablet RxNorm: 559013 1 Tablet(s) PO daily 12/201503/17/2016 Inactive simvastatin 40 mg tablet RxNorm: 187683 1 Tablet(s) PO daily 03/17/2016 Inactive spironolactone 25 mg tablet RxNorm: 967292 TAKE ONE TABLET BY MOUTH DAILY 05/07/2015 05/27/2016 Inactive potassium chloride ER 10 mEq capsule,extended release RxNorm: 755884 1 Capsule(s) PO TIW as needed when taking lasix 04/17/2015 09/03/2015 Inactive alendronate 70 mg tablet RxNorm: 175932 1 Tablet(s) PO weekly QW 04/17/2015 07/01/2015 Inactive Vitamin D2 50,000 unit capsule RxNorm: 606225 1 Capsule(s) PO QW 03/30/2015 06/27/2015 Inactive Vitamin D2 50,000 unit capsule RxNorm: 233647 1 Capsule(s) PO QW 03/21/2015 03/29/2015 Inactive cyanocobalamin (vit B-12) 1,000 mcg/mL injection solution RxNorm: 569883 1 Milliliter(s) Inj monthly 03/19/201502/20 Inactive cyanocobalamin (vit B-12) 1,000 mcg/mL injection solution RxNorm: 556618 1 Milliliter(s) Inj monthly 03/16/201503/18 Inactive cyanocobalamin (vit B-12) 1,000 mcg/mL injection solution RxNorm: 075939 1 Milliliter(s) Inj monthly 03/16/201503/15 Inactive pantoprazole 40 mg tablet,delayed release RxNorm: 365871 1 Tablet(s) PO daily 03/05/2015 01/21/2016 Inactive Lasix 20 mg tablet RxNorm: 952842 1 Tablet(s) PO TIW as needed edema 02/08/2015 02/02/2016 Inactive oxycodone 10 mg tablet RxNorm: 2914550 1 Tablet(s) PO QID as needed take between 20mg dose if needed for extra pain control 11/09/2014 12/08/2014 Inactive oxycodone 20 mg tablet RxNorm: 2934077 1 Tablet(s) PO Q6 as needed 10/25/2014 11/06/2015 Inactive doxycycline hyclate 100 mg tablet RxNorm: 649028 1 Tablet(s) PO BID 10/23/2014 11/19/2014 Inactive Cipro 500 mg tablet RxNorm: 187018 1 Tablet(s) PO BID 201410/16/2014 Inactive Cipro 500 mg tablet RxNorm: 705935 1 Tablet(s) PO BID 201410/09/2014 Inactive oxycodone 20 mg tablet RxNorm: 4810738 1 Tablet(s) PO Q6 as needed 09/25/2014 10/24/2014 Inactive Lasix 20 mg tablet RxNorm: 348090 1 Tablet(s) PO TIW as needed edema 09/14/2014 01/11/2015 Inactive potassium chloride ER 10 mEq capsule,extended release RxNorm: 748796 1 Capsule(s) PO TIW as needed when taking lasix 09/14/2014 01/11/2015 Inactive doxycycline hyclate 100 mg tablet RxNorm: 272346 1 Tablet(s) PO BID 09/05/2014 09/14/2014 Inactive doxycycline hyclate 100 mg tablet RxNorm: 104113 1 Tablet(s) PO BID 09/05/2014 09/04/2014 Inactive oxycodone 20 mg tablet RxNorm: 3914778 1 Tablet(s) PO Q6 as needed 08/29/2014 09/24/2014 Inactive spironolactone 25 mg tablet RxNorm: 790764 1 Tablet(s) PO daily 08/11/2014 03/08/2015 Inactive oxycodone 20 mg tablet RxNorm: 5418416 1 Tablet(s) PO Q6 as needed 08/02/2014 08/28/2014 Inactive Vitamin D3 2,000 unit tablet RxNorm: 196588 1 Tablet(s) PO daily 07/14/2014 No Stop Date Active Vitamin D2 50,000 unit capsule RxNorm: 579912 1 Capsule(s) PO QW 07/14/2014 10/11/2014 Inactive Vitamin D2 50,000 unit capsule RxNorm: 633522 1 Capsule(s) PO QW 07/14/2014 07/13/2014 Inactive Prolia 60 mg/mL subcutaneous syringe RxNorm: 709055 Milliliter(s) SQ EVERY 6 MONTHS No Start Date Active Carafate 1 gram tablet RxNorm: 490812 1 Tablet(s) PO BID No Start Date Active Miralax oral RxNorm: 308417 oral No Start Date Active Stool Softener oral RxNorm: 64305 oral No Start Date Active Calcium + Vitamin D oral RxNorm: 4018 oral No Start Date Active naproxen 500 mg tablet RxNorm: 798908 1 Tablet(s) PO BID No Start Date 08/05/2015 Inactive albuterol sulfate 2.5 mg/3 mL (0.083 %) solution for nebulization RxNorm: 816048 3 Milliliter(s) INH Q4 PRN No Start Date 02/17/2018 Inactive oxycodone 20 mg tablet RxNorm: 0526319 1 Tablet(s) PO Q6 as needed No Start Date 08/01/2014 Inactive aspirin 81 mg tablet RxNorm: 899364 1 Tablet(s) PO daily No Start Date 07/22/2017 Inactive simvastatin 40 mg tablet RxNorm: 867451 1 Tablet(s) PO daily No Start Date 05/09/2015 Inactive cyanocobalamin (vit B-12) 1,000 mcg/mL injection syringe RxNorm: 411430 1 Inj monthly No Start Date 02/15/2017 Inactive Reglan 10 mg tablet RxNorm: 964340 1 Tablet(s) PO as needed No Start Date 07/29/2016 Inactive alendronate 70 mg tablet RxNorm: 810984 1 Tablet(s) PO weekly No Start Date 04/16/2015 Inactive Protonix 40 mg tablet,delayed release RxNorm: 942022 1 Tablet(s) PO daily No Start Date 03/04/2015 Inactive cyclobenzaprine 5 mg tablet RxNorm: 998104 1 Tablet(s) PO Q8 as needed muscle spasms No Start Date 09/10/2016 Inactive Vitamin D3 1,000 unit capsule RxNorm: 384830 1 Capsule(s) PO daily No Start Date 07/13/2014 Inactive Cardizem CD 360 mg capsule,extended release RxNorm: 621172 1 Capsule(s) PO daily No Start Date 01/04/2018 Inactive prednisone 10 mg tablets in a dose pack RxNorm: 770388 1 Tablet(s) PO UD No Start Date 09/08/2016 Inactive Medication Administered Medication Codes Instructions Start Date Status Kenalog 40 mg/mL suspension for injection RxNorm: 5154848 1Milliliter 08/31/2017 No longer Active Kenalog 40 mg/mL suspension for injection RxNorm: 0381134 2Milliliter 08/21/2017 No longer Active Kenalog 40 mg/mL suspension for injection RxNorm: 8174395 2MilliliterUD 08/12/2017 No longer Active Kenalog 40 mg/mL suspension for injection RxNorm: 1083658 2Milliliter 08/05/2017 No longer Active Kenalog 40 mg/mL suspension for injection RxNorm: 9716945 1.5Milliliter 04/02/2017 No longer Active Kenalog 40 mg/mL suspension for injection RxNorm: 8710901 1Milliliter 10/02/2016 No longer Active Kenalog 40 mg/mL suspension for injection RxNorm: 1085292 1Milliliter 09/12/2016 No longer Active Immunizations Vaccine Codes Date Status Influenza CVX: 141 12/03/2017 completed Influenza CVX: 141 12/08/2016 completed Influenza CVX: 141 11/19/2015 completed Influenza CVX: 141 01/10/2015 completed Pneumococcal (Adult) CVX: 133 12/11/2014 completed Pneumococcal (Adult) CVX: 133 12/11/2014 completed Assessments Condition Codes Effective Dates Cough ICD-10: R05 ICD-9: 786.2 02/12/2018 Chronic obstructive pulmonary disease, unspecified ICD-10: J44.9 ICD-9: 496 02/12/2018 Acute bronchitis, unspecified ICD-10: J20.9 ICD-9: 466.0 02/12/2018 Generalized edema ICD-10: R60.1 ICD-9: 782.3 02/09/2018 Diarrhea, unspecified ICD-10: R19.7 ICD-9: 787.91 02/09/2018 Chronic pain syndrome ICD-10: G89.4 ICD-9: 338.4 02/09/2018 Lymphedema, not elsewhere classified ICD-10: I89.0 ICD-9: 457.1 01/14/2018 Essential (primary) hypertension ICD-10: I10 ICD-9: 401.1 12/24/2017 Pain in left shoulder ICD-10: M25.512 [...] Visit Reason For Visit Effective Dates Notes cough 02/12/2018 Hospital Follow Up 02/09/2018 edema [...] Tibc Ord40 Fe-%Sat 21.7 % 10/22/2017 Prealbumin 662535 PREALBUMIN 33 mg/dL 10/21/2017 Comp Metabolic Kyn471 NA 134 mEq/L 10/20/2017 Comp Metabolic Pak381 K 3.7 mEq/L 10/20/2017 Comp Metabolic Cba135 CL 93 mEq/L 10/20/2017 Comp Metabolic Uwk437 CO2 29.0 mEq/L 10/20/2017 Comp Metabolic Ydx551 ANION GAP 16 10/20/2017 Comp Metabolic Fnw403 GLUCOSE 115 mg/dL 10/20/2017 Comp Metabolic Rhh651 Creat 0.8 mg/dL 10/20/2017 Comp Metabolic Lhv181 eGFR 73 ml/min/1.73m2 10/20/2017 Comp Metabolic Loa797 BUN 46 mg/dL 10/20/2017 Comp Metabolic Uvg059 B/C Ratio 57.5 Ratio 10/20/2017 Comp Metabolic Uvn519 CALCIUM 8.7 mg/dL 10/20/2017 Comp Metabolic Dhy534 ALK PHOS 56 U/L 10/20/2017 Comp Metabolic Qmg173 AST(SGOT) 19 U/L 10/20/2017 Comp Metabolic Kca880 ALT(SGPT) 23 U/L 10/20/2017 Comp Metabolic Cqw535 BILI T 0.6 mg/dL 10/20/2017 Comp Metabolic Dvh183 ALBUMIN 4.0 g/dL 10/20/2017 Comp Metabolic Jsk925 TPRO 6.6 g/dL 10/20/2017 Comp Metabolic Poh432 GLOB 2.7 g/dL 10/20/2017 Comp Metabolic Cio697 A/G Ratio 1.5 Ratio 10/20/2017 Comp Metabolic Ois738 Osmo 281 mOsmo 10/20/2017 Tsh Ord6 TSH [...] 35.4 pg 10/20/2017 Cbc With Differential Ord2 Newton% 9.9 % 10/20/2017 Cbc With Differential Ord2 [...] 1.15 K/ul 10/20/2017 Cbc With Differential Ord2 Newton ABS# 0.6 K/ul 10/20/2017 Cbc With Differential Ord2 Eos ABS# 0.0 K/ul 10/20/2017 Cbc With Differential Ord2 Baso ABS# 0.0 K/ul 10/20/2017 Iron Ord72 Iron 75 ug/dl 10/20/2017 Romie Reflex Profile [id number] ROMIE (BRYANNA) SCREEN NONE DETECTED 01/12/2017 Comp Metabolic Ixi254 NA 129 mEq/L 01/08/2017 Comp Metabolic Yxy369 K 3.9 mEq/L 01/08/2017 Comp Metabolic Vka674 CL 94 mEq/L 01/08/2017 Comp Metabolic Pji240 CO2 31.0 mEq/L 01/08/2017 Comp Metabolic Hck711 ANION GAP 8 01/08/2017 Comp Metabolic Pdo079 GLUCOSE 103 mg/dL 01/08/2017 Comp Metabolic Fgn947 Creat 0.9 mg/dL 01/08/2017 Comp Metabolic Wht768 eGFR 61 ml/min/1.73m2 01/08/2017 Comp Metabolic Aoo931 BUN 29 mg/dL 01/08/2017 Comp Metabolic Jug889 B/C Ratio 30.9 Ratio 01/08/2017 Comp Metabolic Cjj780 CALCIUM 8.5 mg/dL 01/08/2017 Comp Metabolic Del388 ALK PHOS 58 U/L 01/08/2017 Comp Metabolic Zkv721 AST(SGOT) 17 U/L 01/08/2017 Comp Metabolic Xdi869 ALT(SGPT) 10 U/L 01/08/2017 Comp Metabolic Uhc135 BILI T 0.4 mg/dL 01/08/2017 Comp Metabolic Ysl547 ALBUMIN 3.0 g/dL 01/08/2017 Comp Metabolic Iaf162 TPRO 5.5 g/dL 01/08/2017 Comp Metabolic Got094 GLOB 2.5 g/dL 01/08/2017 Comp Metabolic Adi433 A/G Ratio 1.2 Ratio 01/08/2017 Comp Metabolic Dge216 Osmo 265 mOsmo 01/08/2017 Cbc With Differential [...] 23.3 % 01/08/2017 Cbc With Differential Ord2 Newton% 12.2 % 01/08/2017 Cbc With Differential Ord2 [...] 1.62 K/ul 01/08/2017 Cbc With Differential Ord2 [place] ABS# 0.9 K/ul 01/08/2017 Cbc With Differential [...] 100.3 fl 11/10/2016 Cbc With Differential Ord2 Newton% 9.1 % 11/10/2016 Cbc With Differential Ord2 [...] 0.78 K/ul 11/10/2016 Cbc With Differential Ord2 [place] ABS# 0.5 K/ul 11/10/2016 Cbc With Differential [...] 30.3 pg 10/07/2016 Cbc With Differential Ord2 [place]% 11.8 % 10/07/2016 Cbc With Differential Ord2 [...] 1.54 K/ul 10/07/2016 Cbc With Differential Ord2 [place] ABS# 1.0 K/ul 10/07/2016 Cbc With Differential Ord2 Eos ABS# 0.1 K/ul 10/07/2016 Cbc With Differential Ord2 Baso ABS# 0.0 K/ul 10/07/2016 Comp Metabolic Vho947 NA 129 mEq/L 08/26/2016 Comp Metabolic Xpe508 K 3.9 mEq/L 08/26/2016 Comp Metabolic Ozm947 CL 93 mEq/L 08/26/2016 Comp Metabolic Hzw484 CO2 30.0 mEq/L 08/26/2016 Comp Metabolic Mls008 ANION GAP 10 08/26/2016 Comp Metabolic Xhw968 GLUCOSE 87 mg/dL 08/26/2016 Comp Metabolic Rql947 Creat 0.6 mg/dL 08/26/2016 Comp Metabolic Yss292 eGFR 96 ml/min/1.73m2 08/26/2016 Comp Metabolic Qud598 BUN 17 mg/dL 08/26/2016 Comp Metabolic Cmz869 B/C Ratio 27.0 Ratio 08/26/2016 Comp Metabolic Jrb112 CALCIUM 7.6 mg/dL 08/26/2016 Comp Metabolic Abz810 ALK PHOS 72 U/L 08/26/2016 Comp Metabolic Dpa372 AST(SGOT) 20 U/L 08/26/2016 Comp Metabolic Bix733 ALT(SGPT) 12 U/L 08/26/2016 Comp Metabolic Bhy657 BILI T 0.3 mg/dL 08/26/2016 Comp Metabolic Wtb975 ALBUMIN 2.7 g/dL 08/26/2016 Comp Metabolic Zmf323 TPRO 5.3 g/dL 08/26/2016 Comp Metabolic Efp418 GLOB 2.6 g/dL 08/26/2016 Comp Metabolic Avm748 A/G Ratio 1.1 Ratio 08/26/2016 Comp Metabolic Smg302 Osmo 260 mOsmo 08/26/2016 Cbc With Differential [...] 28.3 pg 08/26/2016 Cbc With Differential Ord2 Newton% 9.6 % 08/26/2016 Cbc With Differential Ord2 [...] 1.83 K/ul 08/26/2016 Cbc With Differential Ord2 Newton ABS# 1.0 K/ul 08/26/2016 Cbc With Differential Ord2 Eos ABS# 0.1 K/ul 08/26/2016 Cbc With Differential Ord2 Baso ABS# 0.0 K/ul 08/26/2016 Magnesium Ord90 Mag 1.9 mg/dL 08/26/2016 Vitamin D 25 Oh Frr5463 VITAMIN D, 25 HYDROXY 34.59 ng/mL Tibc Ord40 Iron 13 ug/dl 08/26/2016 Tibc Ord40 UIBC 283 ug/dL 08/26/2016 Tibc Ord40 TIBC 296 ug/dL 08/26/2016 Tibc Ord40 Fe-%Sat 4.4 % 08/26/2016 Ferritin Ord22 FERRITIN 28.8 ng/mL 08/26/2016 Sed Rate Ord21 ESR 20 mm/hr 11/19/2015 Comp Metabolic Vpf376 NA 131 mEq/L 08/22/2015 Comp Metabolic Pds066 K 4.2 mEq/L 08/22/2015 Comp Metabolic Dbv969 CL 98 mEq/L 08/22/2015 Comp Metabolic Iuk905 CO2 27.0 mEq/L 08/22/2015 Comp Metabolic Nks690 ANION GAP 10 08/22/2015 Comp Metabolic Tar629 GLUCOSE 80 mg/dL 08/22/2015 Comp Metabolic Crz264 Creat 0.5 mg/dL 08/22/2015 Comp Metabolic Hgs692 eGFR 120 ml/min/1.73m2 08/22/2015 Comp Metabolic Zie016 BUN 13 mg/dL 08/22/2015 Comp Metabolic Mxw329 B/C Ratio 25.0 Ratio 08/22/2015 Comp Metabolic Cdd008 CALCIUM 8.2 mg/dL 08/22/2015 Comp Metabolic Uyj552 ALK PHOS 49 U/L 08/22/2015 Comp Metabolic Zra538 AST(SGOT) 18 U/L 08/22/2015 Comp Metabolic Ivt431 ALT(SGPT) 11 U/L 08/22/2015 Comp Metabolic Rwd460 BILI T 0.5 mg/dL 08/22/2015 Comp Metabolic Cwx174 ALBUMIN 3.5 g/dL 08/22/2015 Comp Metabolic Ooh147 TPRO 6.2 g/dL 08/22/2015 Comp Metabolic Gky894 GLOB 2.7 g/dL 08/22/2015 Comp Metabolic Fqf416 A/G Ratio 1.3 Ratio 08/22/2015 Comp Metabolic Ldg086 Osmo 262 mOsmo 08/22/2015 Cbc With Differential [...] 32.4 pg 08/22/2015 Cbc With Differential Ord2 Newton% 10.3 % 08/22/2015 Cbc With Differential Ord2 [...] 1.39 K/ul 08/22/2015 Cbc With Differential Ord2 Newton ABS# 0.7 K/ul 08/22/2015 Cbc With Differential Ord2 Eos ABS# 0.1 K/ul 08/22/2015 Cbc With Differential Ord2 Baso ABS# 0.0 K/ul 08/22/2015 Tsh Ord6 hTSH II 2.19 uIU/mL 08/22/2015 Vitamin D 25 Oh Hek8660 VITAMIN D, 25 HYDROXY 55.10 ng/mL Lipid [...] 1.5 Ratio 03/16/2015 Vitamin D 25 Oh Ren9702 VITAMIN D, 25 HYDROXY 28.94 ng/mL Cbc [...] 28.1 pg 03/16/2015 Cbc With Differential Ord2 Newton% 11.2 % 03/16/2015 Cbc With Differential Ord2 [...] 2.37 K/ul 03/16/2015 Cbc With Differential Ord2 Newton ABS# 0.8 K/ul 03/16/2015 Cbc With Differential Ord2 Eos ABS# 0.1 K/ul 03/16/2015 Cbc With Differential Ord2 Baso ABS# 0.0 K/ul 03/16/2015 Cbc With Differential Ord2 New Analyzer Notice Please note new ref ranges starting 03-14-2015 due to implemntation of new five part differential hematolgy analyzer. 03/16/2015 Comp Metabolic Pcy971 NA 131 mEq/L 03/16/2015 Comp Metabolic Hai959 K 4.1 mEq/L 03/16/2015 Comp Metabolic Kvx326 CL 94 mEq/L 03/16/2015 Comp Metabolic Qsb880 CO2 28.0 mEq/L 03/16/2015 Comp Metabolic Exy912 ANION GAP 13 03/16/2015 Comp Metabolic Cmz066 GLUCOSE 96 mg/dL 03/16/2015 Comp Metabolic Oqc305 Creat 0.7 mg/dL 03/16/2015 Comp Metabolic Aqw211 eGFR 80 ml/min/1.73m2 03/16/2015 Comp Metabolic Jka661 BUN 16 mg/dL 03/16/2015 Comp Metabolic Abh157 B/C Ratio 21.6 Ratio 03/16/2015 Comp Metabolic Xdd444 CALCIUM 8.9 mg/dL 03/16/2015 Comp Metabolic Gfz852 ALK PHOS 44 U/L 03/16/2015 Comp Metabolic Klw643 AST(SGOT) 22 U/L 03/16/2015 Comp Metabolic Nvv130 ALT(SGPT) 14 U/L 03/16/2015 Comp Metabolic Cwg765 BILI T 0.5 mg/dL 03/16/2015 Comp Metabolic Jik690 ALBUMIN 3.4 g/dL 03/16/2015 Comp Metabolic Llv833 TPRO 6.0 g/dL 03/16/2015 Comp Metabolic Xok014 GLOB 2.6 g/dL 03/16/2015 Comp Metabolic Svl648 A/G Ratio 1.3 Ratio 03/16/2015 Comp Metabolic Myp750 Osmo 264 mOsmo 03/16/2015 Comp Metabolic Feb024 NA 129 mEq/L 11/09/2014 Comp Metabolic Rff244 K 4.2 mEq/L 11/09/2014 Comp Metabolic Cnc166 CL 96 mEq/L 11/09/2014 Comp Metabolic Xqf104 CO2 27.0 mEq/L 11/09/2014 Comp Metabolic Bov959 ANION GAP 10 11/09/2014 Comp Metabolic Vem189 GLUCOSE 144 mg/dL 11/09/2014 Comp Metabolic Jzo519 Creat 0.8 mg/dL 11/09/2014 Comp Metabolic Jgv578 eGFR 73 ml/min/1.73m2 11/09/2014 Comp Metabolic Zas604 BUN 22 mg/dL 11/09/2014 Comp Metabolic Dzp593 B/C Ratio 27.5 Ratio 11/09/2014 Comp Metabolic Iyg210 CALCIUM 8.6 mg/dL 11/09/2014 Comp Metabolic Kly155 ALK PHOS 55 U/L 11/09/2014 Comp Metabolic Jzg427 AST(SGOT) 27 U/L 11/09/2014 Comp Metabolic Yhk864 ALT(SGPT) 18 U/L 11/09/2014 Comp Metabolic Pqd599 BILI T 0.5 mg/dL 11/09/2014 Comp Metabolic Jbn473 ALBUMIN 3.0 g/dL 11/09/2014 Comp Metabolic Zvd456 TPRO 5.4 g/dL 11/09/2014 Comp Metabolic Nrv641 GLOB 2.4 g/dL 11/09/2014 Comp Metabolic Qdv469 A/G Ratio 1.3 Ratio 11/09/2014 Comp Metabolic Fpr249 Osmo 265 mOsmo 11/09/2014 Magnesium Ord90 Mag 1.8 mg/dL 11/09/2014 Review of Systems System Result Effective Dates Constitutional recent illness 02/12/2018 Constitutional No anorexia [...] Procedures Procedure Codes Date DRAIN/INJECT JOINT/BURSA CPT-4: 40257 08/21/2017 DRAIN/INJECT JOINT/BURSA CPT-4: 09222 08/12/2017 TRIAMCINOLONE ACET INJ NOS CPT-4: J3301 08/12/2017 DRAIN/INJECT JOINT/BURSA CPT-4: 10982 08/05/2017 TRIAMCINOLONE ACET INJ NOS CPT-4: J3301 08/05/2017 DRAIN/INJECT JOINT/BURSA CPT-4: 38415 07/23/2017 DRAIN/INJECT JOINT/BURSA CPT-4: 24234 07/09/2017 TRIAMCINOLONE ACET INJ NOS CPT-4: J3301 07/09/2017 PRESCRIP TRANSMIT VIA ERX SY CPT-4: G8553 07/09/2017 DRAIN/INJECT JOINT/BURSA CPT-4: 14983 07/01/2017 TRIAMCINOLONE ACET INJ NOS CPT-4: J3301 07/01/2017 PRESCRIP TRANSMIT VIA ERX SY CPT-4: G8553 07/01/2017 DRAIN/INJECT JOINT/BURSA CPT-4: 73282 06/17/2017 DRAIN/INJECT JOINT/BURSA CPT-4: 47093 04/02/2017 TRIAMCINOLONE ACET INJ NOS CPT-4: J3301 04/02/2017 DRAIN/INJECT JOINT/BURSA CPT-4: 91440 02/06/2017 ADMIN INFLUENZA VIRUS VAC CPT-4: G0008 12/08/2016 FLU VACC PRSV FREE INC ANTIG CPT-4: 29367 12/08/2016 PRESCRIP TRANSMIT VIA ERX SY CPT-4: G8553 12/08/2016 PRESCRIP TRANSMIT VIA ERX SY CPT-4: G8553 11/17/2016 TRIAMCINOLONE ACET INJ NOS CPT-4: J3301 10/02/2016 TRIAMCINOLONE ACET INJ NOS CPT-4: J3301 09/12/2016 DRAIN/INJECT JOINT/BURSA CPT-4: 94934 09/08/2016 TRIAMCINOLONE ACET INJ NOS CPT-4: J3301 09/08/2016 PRESCRIP TRANSMIT VIA ERX SY CPT-4: G8553 08/26/2016 PRESCRIP TRANSMIT VIA ERX SY CPT-4: G8553 08/18/2016 ADMIN INFLUENZA VIRUS VAC CPT-4: G0008 11/19/2015 FLU VACC PRSV FREE INC ANTIG Formatting Model/CDA Sections, Assigned to/Luanne Elaine CPT-4: 77966Tkhgurq 11/19/2015 PRESCRIP TRANSMIT VIA ERX SY CPT-4: G8553 09/04/2015 PRESCRIP TRANSMIT VIA ERX SY CPT-4: G8553 2015 PRESCRIP TRANSMIT VIA ERX SY CPT-4: G8553 07/18/2015 PRESCRIP TRANSMIT VIA ERX SY CPT-4: G8553 07/02/2015 REMOVE IMPACTED EAR WAX UNI CPT-4: 68635 04/09/2015 PRESCRIP TRANSMIT VIA ERX SY CPT-4: G8553 02/08/2015 ADMIN INFLUENZA VIRUS VAC CPT-4: G0008 01/10/2015 FLU VACC PRSV FREE INC ANTIG Formatting Model/CDA Sections, Assigned to/Luanne Elaine CPT-4: 08708Nibzges 01/10/2015 ADMIN PNEUMOCOCCAL VACCINE Formatting Model/CDA Sections, Assigned to SNOMED CT: [id number] CPT-4: I1823Seiutwp 12/11/2014 PNEUMOCOCCAL VACC [address]: [id number] CPT-4: 84528 12/11/2014 Vital Signs Date Vital 02/12/2018 Blood Pressure 1: 130/80 Code : [...] Code : 8480-6 BMI: 23.5 Code : 36997-6 Heart Rate 1 : 58 bpm Height: 5'8" SpO2: 96% Weight: 152 lbs 11/30/2017 Blood Pressure 1: 122/70 Code : 8480-6 Heart Rate 1: 105 bpm Height: 5'8" SpO2: 98% Weight: 11/27/2017 Blood Pressure 1: 148/76 Code : 8480-6 Heart Rate 1: 72 bpm Height: 5'8" SpO2: 99% Weight: 11/10/2017 Blood Pressure 1: 130/76 Code : 8480-6 BMI: 27.3 Code : 63173-3 Heart Rate 1 : 98 bpm Height: [...] Code : 8480-6 BMI: 24.7 Code : 80003-2 Heart Rate 1 : 100 bpm Height: 5'8" SpO2: 95% Weight: 160 lbs 08/31/2017 Blood Pressure 1: 128/78 Code : 8480-6 BMI: 23.6 Code : 79336-9 Heart Rate 1 : 102 bpm Height: 5'8" SpO2: 96% Weight: 153 lbs 08/21/2017 Blood Pressure 1: 138/78 Code : 8480-6 Heart Rate 1: 97 bpm SpO2: 95% Weight: 156 lbs 2 oz 08/12/2017 Blood Pressure 1: 138/74 Code : 8480-6 BMI: 25.0 Code : 34290-0 Heart Rate 1 : 94 bpm Height: 5'8" SpO2: 98% Weight: 162 lbs 08/05/2017 Blood Pressure 1: 126/78 Code : 8480-6 BMI: 25.8 Code : 76130-2 Heart Rate 1 : 74 bpm Height: 5'8" SpO2: 96% Weight: 167 lbs 07/23/2017 Blood Pressure 1: 106/64 Code : 8480-6 BMI: 25.3 Code : 32021-9 Heart Rate 1 : 81 bpm Height: 5'8" SpO2: 99% Weight: 163 lbs 14 oz 07/09/2017 Blood Pressure 1: 130/68 Code : 8480-6 Heart Rate 1: 82 bpm Height: 5'8" SpO2: 98% Weight: 07/01/2017 Blood Pressure 1: 124/76 Code : 8480-6 BMI: 26.5 Code : 48427-6 Heart Rate 1 : 99 bpm Height: 5'8" SpO2: 98% Weight: 172 lbs 06/24/2017 Blood Pressure 1: 118/70 Code : 8480-6 Heart Rate 1: 103 bpm Height: 5'8" SpO2: 98% Weight: 06/17/2017 Blood Pressure 1: 110/64 Code : 8480-6 BMI: 25.0 Code : 30607-4 Heart Rate 1 : 73 bpm Height: 5'8" Weight: 162 lbs 06/01/2017 Blood Pressure 1: 158/84 Code : 8480-6 BMI: 24.4 Code : 45237-2 Heart Rate 1 : 94 bpm Height: 5'8" SpO2: 95% Weight: 158 lbs 04/02/2017 Blood Pressure 1: 164/80 Code : 8480-6 BMI: 23.1 Code : 86866-0 Heart Rate 1 : 76 bpm Height: 5'8" SpO2: 94% Weight: 150 lbs 03/12/2017 Blood Pressure 1: 130/74 Code : 8480-6 BMI: 23.0 Code : 24362-1 Heart Rate 1 : 92 bpm Height: 5'8" SpO2: 94% Weight: 149 lbs 02/06/2017 Height: Weight: 01/08/2017 Blood Pressure 1: 136/76 Code : 8480-6 BMI: 21.4 Code : 24261-0 Heart Rate 1 : 85 bpm Height: 5'8" SpO2: 98% Weight: 138 lbs 8 oz 12/08/2016 Blood Pressure 1: 132/66 Code : 8480-6 BMI: 22.2 Code : 11744-1 Heart Rate 1 : 106 bpm Height: 5'8" SpO2: 97% Weight: 144 lbs 11/17/2016 Blood Pressure 1: 146/80 Code : 8480-6 BMI: 22.4 Code : 66005-0 Heart Rate 1 : 100 bpm Height: 5'8" SpO2: 98% Weight: 145 lbs 11/10/2016 Blood Pressure 1: 122/62 Code : 8480-6 BMI: 22.2 Code : 54185-1 Height: 5'8" Weight: 144 lbs 11/05/2016 Blood Pressure 1: 146/80 Code : 8480-6 BMI: 22.2 Code : 37435-0 Heart Rate 1 : 77 bpm Height: 5'8" SpO2: 99% Weight: 144 lbs 10/07/2016 Blood Pressure 1: 132/68 Code : 8480-6 BMI: 22.8 Code : 38608-2 Heart Rate 1 : 90 bpm Height: 5'8" SpO2: 97% Weight: 148 lbs 10/02/2016 Blood Pressure 1: 166/86 Code : 8480-6 BMI: 22.8 Code : 39049-8 Heart Rate 1 : 96 bpm Height: 5'8" SpO2: 96% Weight: 148 lbs 09/12/2016 Blood Pressure 1: 130/86 Code : 8480-6 Height: Weight: 09/08/2016 Blood Pressure 1: 132/74 Code : 8480-6 BMI: 22.4 Code : 67490-1 Heart Rate 1 : 93 bpm Height: 5'8" SpO2: 99% Weight: 145 lbs 08/26/2016 Blood Pressure 1: 132/78 Code : 8480-6 BMI: 23.9 Code : 93504-4 Heart Rate 1 : 80 bpm Height: 5'8" SpO2: 94% Weight: 155 lbs 08/18/2016 Blood Pressure 1: 130/70 Code : 8480-6 BMI: 23.6 Code : 11058-5 Heart Rate 1 : 100 bpm Height: 5'8" SpO2: 94% Weight: 153 lbs 07/30/2016 Blood Pressure 1: 144/84 Code : 8480-6 BMI: 22.4 Code : 71025-6 Heart Rate 1 : 86 bpm Height: 5'8" SpO2: 97% Weight: 145 lbs 07/14/2016 Blood Pressure 1: 122/ Code : 8480-6 BMI: 22.5 Code : 89944-3 Heart Rate 1 : 87 bpm Height: 5'8" SpO2: 97% Weight: 146 lbs 07/04/2016 Blood Pressure 1: 128/78 Code : 8480-6 BMI: 22.5 Code : 86483-1 Heart Rate 1 : 98 bpm Height: 5'8" Weight: 146 lbs 06/26/2016 Blood Pressure 1: 122/68 Code : 8480-6 BMI: 22.5 Code : 47603-7 Heart Rate 1 : 102 bpm Height: 5'8" SpO2: 98% Weight: 146 lbs 05/28/2016 Blood Pressure 1: 122/68 Code : 8480-6 BMI: 22.4 Code : 59683-0 Heart Rate 1 : 89 bpm Height: 5'8" SpO2: 97% Weight: 145 lbs 03/18/2016 Blood Pressure 1: 132/66 Code : 8480-6 BMI: 22.8 Code : 71271-1 Heart Rate 1 : 96 bpm Height: 5'8" SpO2: 98% Weight: 148 lbs 01/29/2016 Blood Pressure 1: 122/66 Code : 8480-6 BMI: 22.2 Code : 67987-5 Heart Rate 1 : 90 bpm Height: 5'8" SpO2: 99% Weight: 144 lbs 01/01/2016 Blood Pressure 1: 148/82 Code : 8480-6 BMI: 22.5 Code : 45077-5 Heart Rate 1 : 82 bpm Height: 5'8" Weight: 146 lbs 11/19/2015 Blood Pressure 1: 140/74 Code : 8480-6 BMI: 23.7 Code : 02674-7 Heart Rate 1 : 79 bpm Height: 5'8" SpO2: 96% Weight: 153 lbs 8 oz 11/01/2015 Blood Pressure 1: 118/72 Code : 8480-6 Heart Rate 1: 90 bpm Height: 5'8" SpO2: 95% 09/04/2015 Blood Pressure 1: 136/72 Code : 8480-6 BMI: 23.1 Code : 51471-3 Heart Rate 1 : 97 bpm Height: 5'8" SpO2: 98% Weight: 149 lbs 8 oz 2015 Blood Pressure 1: 144/76 Code : 8480-6 BMI: 22.8 Code : 99645-9 Heart Rate 1 : 75 bpm Height: 5'8" SpO2: 97% Weight: 148 lbs 07/18/2015 Blood Pressure 1: 132/60 Code : 8480-6 BMI: 23.1 Code : 69693-6 Heart Rate 1 : 78 bpm Height: 5'8" Weight: 150 lbs 07/02/2015 Blood Pressure 1: 156/86 Code : 8480-6 BMI: 23.0 Code : 18759-1 Heart Rate 1 : 75 bpm Height: 5'8" SpO2: 99% Weight: 149 lbs 05/31/2015 Blood Pressure 1: 136/72 Code : 8480-6 BMI: 22.7 Code : 76416-6 Heart Rate 1 : 85 bpm Height: 5'8" SpO2: 97% Weight: 147 lbs 04/09/2015 Blood Pressure 1: 118/60 Code : 8480-6 BMI: 22.7 Code : 56422-8 Heart Rate 1 : 72 bpm Height: 5'8" SpO2: 95% Weight: 147 lbs 02/08/2015 Blood Pressure 1: 138/76 Code : 8480-6 BMI: 23.1 Code : 15959-5 Heart Rate 1 : 80 bpm Height: 5'8" SpO2: 98% Weight: 150 lbs 12/11/2014 Blood Pressure 1: 120/74 Code : 8480-6 BMI: 22.1 Code : 93260-6 Heart Rate 1 : 92 bpm Height: 5'8" SpO2: 96% Weight: 143 lbs 11/09/2014 Blood Pressure 1: 100/64 Code : 8480-6 BMI: 21.6 Code : 65931-0 Heart Rate 1 : 88 bpm Height: 5'8" Weight: 140 lbs 10/23/2014 Blood Pressure 1: 138/82 Code : 8480-6 BMI: 23.6 Code : 96534-2 Heart Rate 1 : 86 bpm Height: 5'8" Weight: 153 lbs 10/16/2014 Blood Pressure 1: 128/60 Code : 8480-6 BMI: 23.3 Code : 53988-5 Heart Rate 1 : 91 bpm Height: 5'8" SpO2: 99% Weight: 151 lbs 10/09/2014 Blood Pressure 1: 120/60 Code : 8480-6 BMI: 23.0 Code : 40522-2 Heart Rate 1 : 96 bpm Height: 5'8" SpO2: 97% Weight: 149 lbs 09/14/2014 Blood Pressure 1: 132/72 Code : 8480-6 BMI: 22.1 Code : 86559-7 Heart Rate 1 : 84 bpm Height: 5'8" SpO2: 97% Weight: 143 lbs 08/11/2014 Blood Pressure 1: 134/74 Code : 8480-6 BMI: 24.1 Code : 62308-2 Heart Rate 1 : 88 bpm Height: 5'8" Weight: 156 lbs 07/12/2014 Blood Pressure 1: 122/62 Code : 8480-6 BMI: 22.7 Code : 88710-0 Heart Rate 1 : 76 bpm Height: 5'8" Weight: 147 lbs Functional Status No Functional Status data History of Present Illness Symptom Name Status Result Effective Date Notes Location in the throat 02/12/2018 None Quality [...] Dr. Blancas in [place] and Neurosurgeon in [place] in the past neck pain Significant Medical Conditions spinal stenosis 07/12/2014 has osteoarthritis Advance Directives No Advance Directive data Encounters Encounter Performer Location Codes Date ( [id number] EST. PATIENT, LEVEL III Diagnosis: Cough[ICD10: R05] Diagnosis: Acute bronchitis, unspecified[ICD10: J20.9] Diagnosis: Chronic obstructive pulmonary disease, unspecified[ICD10: J44.9] Ila Silva MD, [facility] CPT-4: 59444 02/12/2018 ([id number]) 97032 EST. PATIENT, LEVEL IV Diagnosis: Chronic pain syndrome[ICD10: G89.4] Diagnosis: Cough[ICD10: R05] Diagnosis: Diarrhea, unspecified[ICD10: R19.7] Diagnosis: Generalized edema[ICD10: R60.1] Ila Silva MD, [facility] CPT-4: 54453 02/09/2018 ([id number]) 88694 EST. PATIENT, LEVEL III Diagnosis: Generalized edema[ICD10: R60.1] Diagnosis: Lymphedema, not elsewhere classified[ICD10: I89.0] Araceli Silva MD, [facility] CPT-4: 71582 01/14/2018 ([id number]) 33106 EST. PATIENT, LEVEL IV Diagnosis: Essential (primary) hypertension[ICD10: I10] Diagnosis: Generalized edema[ICD10: R60.1] Diagnosis: Chronic pain syndrome[ICD10: G89.4] [facility] CPT-4: 01438 12/24/2017 ([id number]) 08488 EST. PATIENT, LEVEL III Diagnosis: Lymphedema, not elsewhere classified[ICD10: I89.0] Araceli Silva MD, [facility] CPT-4: 58690 11/30/2017 ([id number]) 19605 EST. PATIENT, LEVEL III Diagnosis: Generalized edema[ICD10: R60.1] Ila Silva MD, [facility] CPT-4: 54569 11/27/2017 ([id number]) 81366 EST. PATIENT, LEVEL IV Diagnosis: Localized edema[ICD10: [...] left shoulder[ICD10: M25.512] Araceli Silva MD, [facility] CPT-4: 56749 11/10/2017 ([id number]) 06785 EST. PATIENT, LEVEL IV Diagnosis: Localized edema[ICD10: [...] left shoulder[ICD10: M25.512] Araceli Silva MD, [facility] CPT-4: 87140 10/29/2017 ([id number]) 70168 EST. PATIENT, LEVEL IV Diagnosis: Essential (primary) [...] Diagnosis: Localized edema[ICD10: R60.0] Araceli Silva MD, [facility] CPT- 4: 82475 10/20/2017 ([id number]) 35485 EST. 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 PATIENT, LEVEL IV Diagnosis: Primary osteoarthritis, left shoulder[ICD10: M19.012] Diagnosis: Pain in left shoulder[ICD10: M25.512] Diagnosis: Lymphedema, not elsewhere classified[ICD10: I89.0] Diagnosis: Localized edema[ICD10: R60.0] Diagnosis: Chronic atrial fibrillation[ICD10: I48.2] Araceli Silva MD, [facility] CPT-4: 74669 09/15/2017 ([id number]) 67558 EST. PATIENT, LEVEL III Diagnosis: Primary osteoarthritis, left shoulder[ICD10: M19.012] Diagnosis: Pain in left shoulder[ICD10: M25.512] Diagnosis: Hemarthrosis, left shoulder[ICD10: M25.012] Araceli Silva MD, [facility] CPT-4: 56356 08/31/2017 ([id number]) 71769 EST. PATIENT, LEVEL IV Diagnosis: Essential (primary) hypertension[ICD10: I10] Diagnosis: Chronic pain syndrome[ICD10: G89.4] Diagnosis: Primary osteoarthritis, right shoulder[ICD10: M19.011] Diagnosis: Primary osteoarthritis, left shoulder[ICD10: M19.012] Diagnosis: Hemarthrosis, left shoulder[ICD10: M25.012] Diagnosis: Hemarthrosis, right shoulder[ICD10: M25.011] Diagnosis: Pain in right shoulder[ICD10: M25.511] Diagnosis: Pain in left shoulder[ICD10: M25.512] Araceli Silva MD, [facility] CPT-4: 11928 08/05/2017 ([id number]) 34735 EST. PATIENT, LEVEL III Diagnosis: Localized edema[ICD10: R60.0] Araceli Silva MD [facility] CPT- 4: 31950 07/23/2017 ([id number]) 50679 EST. PATIENT, LEVEL III Diagnosis: Rheumatoid arthritis without rheumatoid factor, left shoulder[ICD10: M06.012] Diagnosis: Hemarthrosis, left shoulder[ICD10: M25.012] Araceli Silva MD, [facility] CPT-4: 47290 07/09/2017 ([id number]) 43194 EST. PATIENT, LEVEL III Diagnosis: Chronic pain syndrome[ICD10: G89.4] Diagnosis: Rheumatoid arthritis without rheumatoid factor, left shoulder[ICD10: M06.012] Diagnosis: Hemarthrosis, left shoulder[ICD10: M25.012] Diagnosis: Lymphedema, not elsewhere classified[ICD10: I89.0] Araceli Silva MD, [facility] CPT-4: 53157 07/01/2017 ([id number]) 84021 EST. PATIENT, LEVEL III Diagnosis: Chronic pain syndrome[ICD10: G89.4] Araceli Silva MD, [facility] CPT-4: 98110 06/24/2017 ([id number]) 42770 EST. 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 PATIENT, LEVEL III Diagnosis: Pain in left shoulder[ICD10: M25.512] Diagnosis: Hemarthrosis, right shoulder[ICD10: M25.011] Diagnosis: Hemarthrosis, left shoulder[ICD10: M25.012] Maricel Silva MD, [facility] CPT-4: 72289 06/01/2017 ([id number]) 38564 EST. PATIENT, LEVEL II Diagnosis: Pain in right shoulder[ICD10: M25.511] Diagnosis: Hemarthrosis, right shoulder[ICD10: M25.011] Araceli Silva MD, [facility] CPT-4: 09331 04/02/2017 ([id number]) 72895 EST. 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 PATIENT, LEVEL IV Diagnosis: Encounter for immunization[ICD10: Z23] Diagnosis: Chronic pain syndrome[ICD10: G89.4] Diagnosis: Essential (primary) hypertension[ICD10: I10] Araceli Silva MD, [facility] CPT-4: 53473 12/08/2016 ([id number]) 11879 EST. PATIENT, LEVEL III Diagnosis: Urge incontinence[ICD10: N39.41] Diagnosis: Chronic pain syndrome[ICD10: G89.4] Diagnosis: Lymphedema, not elsewhere classified[ICD10: I89.0] Araceli Silva MD, [facility] CPT-4: 12981 11/17/2016 [id number] EST. 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 PATIENT, LEVEL IV Diagnosis: Essential (primary) hypertension[ICD10: I10] Diagnosis: Other chronic pain[ICD10: G89.29] Diagnosis: Localized edema[ICD10: R60.0] Diagnosis: Urge incontinence[ICD10: N39.41] Araceli Silva MD, [facility] CPT-4: 07849 11/05/2016 ([id number]) 29611 EST. 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 PATIENT, LEVEL III Diagnosis: Hemarthrosis, right shoulder[ICD10: M25.011] Diagnosis: Pain in right shoulder[ICD10: M25.511] Ila Silva MD, [facility] CPT-4: 93841 10/02/2016 19484 EST. PATIENT, LEVEL II Diagnosis: Low back pain[ICD10: M54.5] Diagnosis: Sacroiliitis, not elsewhere classified[ICD10: M46.1] Ila Silva MD, [facility] CPT-4: 35407 09/12/2016 ([id number]) 76580 EST. PATIENT, LEVEL III Diagnosis: Hemarthrosis, right shoulder[ICD10: M25.011] Diagnosis: Other chronic pain[ICD10: G89.29] Araceli Silva MD, [facility] CPT-4: 58235 09/08/2016 ([id number]) 38777 EST. PATIENT, LEVEL IV Diagnosis: Other iron deficiency anemias[ICD10: D50.8] Diagnosis: Vitamin D deficiency, unspecified[ICD10: E55.9] Diagnosis: Hypomagnesemia[ICD10: E83.42] Araceli Silva MD, [facility] CPT- 4: 08861 08/26/2016 ([id number]) 49394 EST. PATIENT, LEVEL III Diagnosis: Localized edema[ICD10: R60.0] Araceli Silva MD, [facility] CPT- 4: 64250 08/18/2016 ([id number]) 94778 EST. 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 PATIENT, LEVEL IV Diagnosis: Pain in left shoulder[ICD10: M25.512] Diagnosis: Nocturia[ICD10: R35.1] Maricel Silva MD, [facility] CPT-4: 55697 07/14/2016 93936 EST. PATIENT, LEVEL III Diagnosis: Pain in left shoulder[ICD10: M25.512] Maricel Silva MD, [facility] CPT-4: 42940 07/04/2016 ([id number]) 09357 EST. PATIENT, LEVEL III Diagnosis: Spinal stenosis, cervicothoracic region[ICD10: M48.03] Diagnosis: Essential (primary) hypertension[ICD10: I10] Araceli Silva MD, [facility] CPT-4: 28686 06/26/2016 ([id number]) 52378 EST. 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 PATIENT, LEVEL II Diagnosis: Insect bite (nonvenomous) of right upper arm, initial encounter[ICD10 : S40.861A] Ila Silva MD, [facility] CPT-4: 26767 11/01/2015 ([id number]) 42585 EST. 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 PATIENT, LEVEL III Diagnosis: Contusion of left upper arm, subsequent encounter[ICD10: S40.022D] Araceli Silva MD, [facility] CPT-4: 06758 2015 44945 EST. PATIENT, LEVEL III Diagnosis: Cellulitis of left upper limb[ICD10: L03.114] Maricel Silva MD, [facility] CPT-4: 18603 07/18/2015 ([id number]) 01812 EST. 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 PATIENT, LEVEL IV Diagnosis: Essential (primary) hypertension[ICD10: I10] Diagnosis: Vitamin D deficiency, unspecified[ICD10: E55.9] Diagnosis: Mixed hyperlipidemia[ICD10: E78.2] Diagnosis: Age-related osteoporosis with current pathological fracture, unspecified site, sequela[ICD10: M80.00XS] Araceli Silva MD [facility] CPT- 4: 31092 02/08/2015 ([id number]) 44157 EST. PATIENT, LEVEL IV Diagnosis: Essential (primary) hypertension[ICD10: I10] Diagnosis: Localized edema[ICD10: R60.0] Diagnosis: Primary osteoarthritis, unspecified site[ICD10: M19.91] Araceli Silva MD [facility] CPT-4: 08169 12/11/2014 ([id number]) 42662 EST. PATIENT, LEVEL III Diagnosis: EDEMA[ICD9: 782.3] Diagnosis: ESSENTIAL HYPERTENSION[ICD9: 401.9] Araceli Silva MD [facility] CPT-4: 85323 11/09/2014 ([id number]) 90689 EST. PATIENT, LEVEL III Diagnosis: Leg pain[ICD9: 729.5] Diagnosis: Ulcer of toe[ICD9: 707.15] Araceli Silva MD [facility] CPT- 4: 97965 10/23/2014 ([id number]) 53311 EST. PATIENT, LEVEL III Diagnosis: Ulcer of toe[ICD9: 707.15] Araceli Silva MD [facility] CPT- 4: 58226 10/16/2014 13775 EST. PATIENT, LEVEL II Diagnosis: Ulcer of toe[ICD9: 707.15] Ila Silva MD, [facility] CPT-4: 13908 10/09/2014 ([id number]) 76396 EST. PATIENT, LEVEL III Diagnosis: EDEMA[ICD9: 782.3] Araceli Silva MD, [facility] CPT-4: 72915 09/14/2014 ([id number]) 32861 EST. PATIENT, LEVEL IV Diagnosis: EDEMA[ICD9: 782.3] Diagnosis: ESSENTIAL HYPERTENSION[ICD9: 401.9] [facility] CPT-4: 03685 08/11/2014 ([id number]) OFFICE VISIT, NEW - LEVEL 4 Diagnosis: HYPERLIPIDEMIA[ICD9: 272.4] Diagnosis: VITAMIN D DEFICIENCY[ICD9: 268.9] Diagnosis: Osteoporosis[ICD9: 733.00] Diagnosis: Esophageal reflux[ICD9: 530.81] Diagnosis: Chronic pain[ICD9: 338.29] [facility] CPT- 4: 51464 07/12/2014 Plan of Care Planned Activity Notes Codes Status Date Appointment: Araceli Silva WPtel: [facility]5 [facility]66[facility] (15 min) Moderate 03/03/2018 Visit Plan: Bronchitis - acute case [...] [facility] 02/12/2018 Appointment: Ila Kennedy WPtel: [address] [place], [place] [phone] (30 min) Complex 02/12/2018 Patient Education: Patient Medication Summary Completed 02/12/2018 Visit Plan: Chronic Pain Syndrome - pt has chronic pain - has been maintained on current medications, has not sought out other medications , only uses PRN pain medications as directed, and understands the consequences of over-medication. Cnjgq-oywpclpldh-zpjckche with lasix/metolazone -if swelling /weight increase, okay to increase metolazone to daily as directed Cough- okay for robitussin dm Diarrhea- rx for lomotil written and instructed on use-follow up in 3 weeks, sooner if needed. Call with any concerns. 02/09/2018 Appointment: Ila Kennedy WPtel: [facility]6 [phone] (30 min) Complex 02/09/2018 Patient Education: Patient Medication Summary Completed 02/09/2018 Appointment: [facility] (15 min) Moderate 02/04/2018 Visit Plan: [...] over-medication. 01/14/2018 Appointment: [phone] (15 min) Moderate 01/14/2018 Patient Education: [...] oxycodone scheduled. 12/24/2017 Appointment: [phone] [facility] [place] (30 min) Complex 12/24/2017 Patient [...] output. 11/30/2017 Appointment: Araceli Silva WPtel: [phone] [facility] (15 min) Moderate 11/30/2017 Patient Education: Patient [...] over-medication. 11/10/2017 Appointment: [phone] [facility] (15 min) Moderate 11/10/2017 Patient Education: [...] hands/fingers. We will contact [facility] [employer] in [place] for paperwork regarding the scooter. 10/29/2017 Appointment: [phone] [facility] (15 min) Moderate 10/29/2017 Patient Education: [...] time. 10/20/2017 Appointment: [phone] (30 min) Complex 10/20/2017 Patient Education: [...] drained today. 09/29/2017 Appointment: Araceli Silva WPtel: [address] [place], [place] [address] (15 min) Moderate 09/29/2017 Patient Education: Patient [...] Completed 08/21/2017 Appointment: [phone] [facility] [place] (15 min) Moderate 08/20/2017 Visit Plan: Hemarthrosis shoulders - 250mL from left shoulder and 100mL from right shoulder with 1ml kenalog injected into right and left shoulders - Left and right shoulder pain and swelling, swelling into arms and left breast -pt to continue with use of compression sleeves. [id number] sep 2018 bristol 2ml kenalog 08/12/2017 Appointment: [facility] Silva [phone] [facility] (15 min) Moderate 08/12/2017 Patient Education: [...] peripheral edema. 08/05/2017 Appointment: [phone] [facility] [place] (15 min) Moderate 08/05/2017 Patient [...] edema. 07/23/2017 Appointment: Araceli Silva WPtel: [phone] [facility] (15 min) Moderate 07/23/2017 Patient Education: Patient [...] monitor symptoms. 07/09/2017 Appointment: Araceli Silva WPtel: [facility] [place] (15 min) Moderate 07/09/2017 Patient Education: Patient Medication Summary Completed 07/09/2017 Referral: [facility] WPtel: Referral Initiated 07/08/2017 [...] monitor symptoms. 07/01/2017 Appointment: Araceli Silva WPtel: [facility] [place] (15 min) Moderate 07/01/2017 Patient Education: Patient Medication Summary Completed 07/01/2017 Visit Plan: Chronic Pain Syndrome - pt has chronic pain - has been maintained on current medications, has not sought out other medications , only uses PRN pain medications as directed, and understands the consequences of over-medication. 06/24/2017 Appointment: Araceli Silva WPtel: [address] [place], [place] [phone] (15 min) Moderate 06/24/2017 Patient Education: Patient [...] peripheral edema. 06/17/2017 Appointment: Araceli Silva WPtel: [address] [place], [place] [phone] (30 min) Complex 06/17/2017 Patient Education: Patient Medication Summary Completed 06/17/2017 Appointment: Araceli Silva WPtel: [address] [place], [place] [phone] (15 min) Moderate 06/08/2017 Care Plan: Referral Order SNOMED-CT : [id number] Pending 06/02/2017 Visit Plan: Left and right [...] edema. 06/01/2017 Appointment: [facility] [place] (30 min) Complex 06/01/2017 Patient Education: [...] shoulder 04/02/2017 Appointment: [facility]el[phone] [facility] [place] (15 min) Moderate 04/02/2017 Patient [...] upset. 03/12/2017 Appointment: [facility]el[facility] [facility] [place] (15 min) Moderate 03/12/2017 Patient [...] check ROMIE. 01/08/2017 Appointment: Araceli Silva WPtel: [facility]3 [facility]66[facility] (15 min) Moderate 01/08/2017 Patient Education: Patient [...] Remicaide. 12/08/2016 Appointment: Araceli Silva WPtel: [phone] [facility] (15 min) Moderate 12/08/2016 Patient [...] now 11/17/2016 Appointment: Araceli Silva WPtel: [phone] [facility] (15 min) Moderate 11/17/2016 Patient [...] over-medication. 11/10/2016 Appointment: [phone] (30 min) Complex 11/10/2016 Patient Education: Patient [...] steroids, immunosuppression. 11/05/2016 Appointment: Araceli Silva WPtel: [facility] (15 min) Moderate 11/05/2016 Patient Education: Patient [...] today. 10/07/2016 Appointment: Araceli Silva WPtel: [phone] [facility] (15 min) Moderate 10/07/2016 Patient Education: Patient Medication Summary Completed 10/07/2016 Care Plan: Referral Order SNOMED-CT : [id number] Pending 10/07/2016 Care Plan: Referral Order SNOMED-CT : [id number] Pending 10/07/2016 Visit Plan: Hemarthrosis -right shoulder-only able to drain 5ml of bloody drainage-unable to give oral steroids due to recent GI bleed -will give kenalog injection today in the office-discussed getting OSMO patch 10/02/2016 Appointment: Ila Kennedy WPtel: [phone] [phone] [place] (30 min) Complex 10/02/2016 Patient Education: Patient Medication Summary Completed 10/02/2016 Appointment: Araceli Silva WPtel: [phone] [facility] [place] (15 min) Moderate 09/23/2016 Appointment: Araceli Silva WPtel: [phone] [facility] [place] (15 min) Moderate 09/17/2016 Visit Plan: Sacroiliitis - back exercises discussed with the patient, pt to continue with anti-inflammatories. Pt is to call if the symptoms do not improve or if they worsen. Kenalog injection today in the office. 09/12/2016 Appointment: Ila Kennedy WPtel: [address] [phone] [place] (15 min) Moderate 09/12/2016 Patient Education: [...] Injection of kenalog 1mL - 40mg - [employer] - lot #[id number] , expires oct 2017 Chronic Pain Syndrome - pt has chronic pain - has been maintained on current medications, has not sought out other medications, only uses PRN pain medications as directed, and understands the consequences of over-medication. 09/08/2016 Appointment: Araceli Silva WPtel: [facility]7 [facility]6676[facility] (15 min) Moderate 09/08/2016 [...] swelling. Check magnesium level 08/26/2016 Appointment: Araceli iSlva WPtel: [facility]6 [facility]6676[facility] (15 min) Moderate 08/26/2016 Patient Education: Patient [...] Summary Completed 08/18/2016 Appointment: Araceli Silva WPtel: [facility]6 [facility]6676[facility] (15 min) Moderate 08/13/2016 Appointment: Araceli Silva WPtel: [facility]6676[facility] (15 min) Moderate 08/06/2016 Visit Plan: Chronic [...] the daytime. 07/30/2016 Appointment: Araceli Silva WPtel: [facility]5 [facility] (15 min) Moderate 07/30/2016 Patient Education: Patient Medication Summary Completed 07/30/2016 Visit Plan: Left shoulder pain - improving - pt is to notify clinic if symptoms do not improve, if they worsen, or with any questions or concerns. Nocturia - will give samples, pt is to notify clinic if symptoms do not improve. 07/14/2016 Appointment: Maricel Gee WPtel: [facility]5 [facility]6676[facility] (30 min) Complex 07/14/2016 Patient Education: Patient [...] any dyspnea. 07/04/2016 Appointment: Maricel Gee WPtel: [facility]5 [facility] (30 min) Complex 07/04/2016 Patient Education: Patient [...] over- medication. 06/26/2016 Appointment: Araceli Silva WPtel: [facility]5 [facility] (15 min) Moderate 06/26/2016 Patient [...] over-medication. 05/28/2016 Appointment: [facility]el[facility] [place] (15 min) Moderate 05/28/2016 Patient Education: Patient Medication Summary Completed 05/28/2016 Patient Education: Hypertension Completed 05/28/2016 Appointment: Araceli Silva WPtel: 101 [facility] [place] (15 min) Moderate 05/12/2016 Appointment: Araceli Silva WPtel: 1010 [facility] [place] (15 min) Moderate 04/15/2016 Appointment: [facility]el[facility] [place] (30 min) Complex 03/25/2016 Visit [...] the premarin. 03/18/2016 Appointment: Araceli Silva [facility]Ptel: [address] [facility] [place] (30 min) Complex 03/18/2016 Patient Education: Patient Medication Summary Completed 03/18/2016 Appointment: Araceli Silva WPtel: [phone] [facility] [place] (15 min) Moderate 02/19/2016 Visit Plan: [...] over-medication. 01/29/2016 Appointment: [facility]el[facility] [place] (15 min) Moderate 01/29/2016 Patient Education: Patient Medication Summary Completed 01/29/2016 Visit Plan: Discussed MRI of the neck - pt is interested in doing this - however, not prior to changing her medication first to see if this helps her pain 01/01/2016 Appointment: [facility]eli Silva [facility]Ptel: [facility] [facility] [place] (15 min) Moderate 01/01/2016 Patient Education: Patient Medication Summary Completed 01/01/2016 Patient Education: Hypertension Completed 01/01/2016 Appointment: [facility] Silva [facility]Ptel: [facility] [place] (15 min) Moderate 12/03/2015 Visit [...] or nonhealing. 11/01/2015 Appointment: Ila Kennedy WPtel: [phone] (15 min) Moderate 11/01/2015 Patient Education: Patient Medication Summary Completed 11/01/2015 Visit Plan: Chronic Pain Syndrome - pt has chronic pain - has been maintained on current medications, has not sought out other medications , only uses PRN pain medications as directed, and understands the consequences of over-medication. Muscle spasms - recommended muscle rub. 09/04/2015 Appointment: Araceli Silva WPtel: [facility]1 [facility] (15 min) Moderate 09/04/2015 Patient Education: Patient Medication Summary Completed 09/04/2015 Visit Plan: Ecchymosis/hematoma - improving - discussed natural progression of hematomas - watchful waiting. 2015 Appointment: Araceli Silva WPtel: [facility]8 [facility] (15 min) Moderate 2015 Patient Education: Patient Medication Summary Completed 2015 Visit Plan: Cellulitis - continue with oral antibiotics as previously directed, return to clinic as previously directed, call for acute change in symptoms, worsening redness, warmth, discharge. 07/18/2015 Appointment: Ila Kennedy WPtel: [phone] [place] (30 min) Complex 07/18/2015 Patient Education: [...] center. 07/02/2015 Appointment: [facility] Silva [facility]Ptel: [facility] [place] (15 min) Moderate 07/02/2015 Patient [...] ambulation. 04/09/2015 Appointment: Araceli Silva WPtel: [phone] [facility] (15 min) Moderate 04/09/2015 Patient Education: Patient [...] d supplementation. 02/08/2015 Appointment: Araceli Silva WPtel: 1012 [facility] (15 min) Moderate 02/08/2015 Patient [...] the evening. 12/11/2014 Appointment: Araceli Silva WPtel: [address] [place], [place] [phone] (15 min) Moderate 12/11/2014 Patient Education: Patient [...] - improved. 11/09/2014 Appointment: Araceli Silva WPtel: [address] [place], [place] [phone] (15 min) Moderate 11/09/2014 Patient Education: Patient Medication Summary Completed 11/09/2014 Patient Education: Hypertension Completed 11/09/2014 Visit Plan: Leg pain/cellulitis of leg - start on the doxycycline twice daily - take this x 2 weeks, if the symptoms in your leg/ thigh are not completely resolved, there is a refill that is available. start on a probiotic one pill daily ([employer] or [employer]) this will help prevent the development of a bad type of diarrhea that can occur when taking antibiotics. Ulcer of toe - improving. 10/23/2014 Appointment: Araceli Silva WPtel: [phone] [facility] (15 min) Moderate 10/23/2014 Patient Education: Patient Medication Summary Completed 10/23/2014 Visit Plan: Ulcer - keep lesion covered, antibiotic ointment to be used, monitor - call if redness increases or starts streaking up the foot. 10/16/2014 Appointment: Araceli Silva WPtel: [facility]8 [facility] (15 min) Moderate 10/16/2014 Patient [...] peripheral edema. 09/14/2014 Appointment: Araceli Silva WPtel: [facility] Follow up 09/14/2014 Patient Education: Patient [...] over- medication. 07/12/2014 Appointment: Araceli Silva WPtel: [facility] [place] ([place] New Patient 07/12/2014 Patient Education: Patient Medication Summary Completed 07/12/2014 Patient Education: Hypertension Completed 07/12/2014 Referral: Dr Virgen Referral Completed Referral: External, Ordering Provider Referral Completed Referral: [facility] WPtel: Referral Initiated Instructions [...] start on a probiotic one pill daily ([employer] or [employer]) this will help prevent the development of a bad type of diarrhea that can occur when taking antibiotics. . Leg pain/cellulitis of leg - start on the doxycycline twice daily - take this x 2 weeks, if the symptoms in your leg/thigh are not completely resolved, there is a refill that is available. start on a probiotic one pill daily ([employer] or [employer]) this will help prevent the development of [...] Injection of kenalog 1mL - 40mg - [employer] - lot #[id number] , expires oct 2017 Chronic Pain Syndrome [...] or starts streaking up the foot. . Hypertension - well controlled - continue [...] - continue with vitamin d supplementation. . Hemarthrosis -right shoulder-only able to drain [...] hands/fingers. We will contact [facility] [employer] in [place] for paperwork regarding the scooter. . Hypertension [...] of breath -will send rx to [facility] next mammogram will be due in Oct. [...] scheduled. Patient verbalized understanding of plan. . Tick Bite - pt given script for treatment of infected tick bite, call for symptoms of worsening infection or nonhealing. . Edema/Lymphedema - prn metalozone rx sent [...] directed, and understands the consequences of over-medication. Bmtpy-guzthmpucp-klsajzsr with lasix/metolazone -if swelling/weight increase, okay to [...] office. two old goats muscle rub from [employer]. . Chronic Pain Syndrome [...] to continue with use of compression sleeves. [id number] sep 2018 manuel 2ml kenalog . Edema/Lymphedema [...]
--- OUTSIDE RECORDS SUMMARY | 2018-06-03 17:42 | XMS REPORT | CCD ---
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 Name Role Phone PP Unavailable CCM Unavailable Summary Purpose Interface Exchange Insurance Providers Payer name Policy type / Coverage type Covered libertarian ID Effective Begin Date Effective End Date [place] [employer] Medicare Part B [id number] 2017 Unknown AETNA Medicare Part B [id number] Unknown Family history Father Diagnosis Age At [...] Unknown Retired 07/12/[address]: 7509180 Quit over 10 years ago 1967 07/12/2014 Alcohol history Unknown occasionally drinks alcohol 07/12/2014 Allergies, Adverse Reactions, Alerts Substance Reaction Codes Entered Date Inactivated Date Status * NO KNOWN FOOD ALLERGIES Unknown 07/12/2014 No Inactive Date Active Penicillin Unknown 07/12/2014 No Inactive Date Active SULFA(SULFONAMIDE ANTIBIOTICS) Unknown 07/12/2014 No Inactive Date Active Past Medical History Illness Codes Condition Status Onset Date Resolved Date Acute bronchitis, unspecified ICD-9: 466.0 ICD-10: J20.9 [...] ICD-9: 457.1 ICD-10: I89.0 Active 11/17/2016 Unknown Essential (primary) hypertension ICD-9: 401.1 ICD-10: [...] Problems Condition Codes Effective Dates Condition Status Acute bronchitis, unspecified ICD-9: 466.0 ICD-10: J20.9 02/12/2018 Active Chronic obstructive pulmonary disease, unspecified ICD-9: 496 ICD-10: J44.9 02/12/2018 Active Cough ICD-9: 786.2 ICD-10: R05 02/09/2018 Active Chronic pain syndrome ICD-9: 338.4 ICD-10: G89.4 10/07/2016 Active Diarrhea, unspecified ICD-9: 787.91 ICD-10: R19.7 02/09/2018 Active Generalized edema ICD- 9: 782.3 ICD-10: R60.1 11/27/2017 Active Lymphedema, not elsewhere classified ICD-9: 457.1 ICD-10: I89.0 11/17/2016 Active Essential (primary) hypertension ICD-9: 401.1 ICD-10: [...] Start Date Stop Date Status Fill Instructions cefdinir 300 mg capsule RxNorm: 956504 1 Capsule(s) PO BID 02/24/2018 Active albuterol sulfate 2.5 mg/3 mL (0.083 %) solution for nebulization RxNorm: 531307 3 Milliliter(s) INH Q4 PRN 02/18/2018 No Stop Date Active cefdinir 300 mg capsule RxNorm: 997920 1 Capsule(s) PO BID 02/17/2018 Inactive Flonase Allergy Relief 50 mcg/actuation nasal spray, suspension RxNorm: 8102376 2 [place] NASAL daily 02/12/20182017 Active Zithromax Z-Humberto 250 mg tablet RxNorm: 965427 1 Tablet(s) PO UD 02/12/2018 02/16/2018 Inactive Lomotil 2.5 mg-0.025 mg tablet RxNorm: 8072522 1 Tablet(s) PO BID PRN 02/09/2018 No Stop Date Active fentanyl 25 mcg/hr transdermal patch RxNorm: 014149 1 Patch TD Q72H use with 100mcg patch for a total of 125mcg daily 02/09/2018 03/10/2018 Active oxycodone 30 mg tablet RxNorm: 5847977 1/2 Tablet(s) PO Q6 03/14/2018 Active metolazone 10 mg tablet RxNorm: 043756 1 Tablet(s) PO QAM as needed uncontrolled edema 01/14/2018 03/14/2018 Active fentanyl 100 mcg/hr transdermal patch RxNorm: 350027 1 Patch TD Q72H use with 25mcg/hr patch 01/14/2018 02/12/2018 Inactive fentanyl 25 mcg/hr transdermal patch RxNorm: 284025 1 Patch TD Q72H use with 100mcg patch for a total of 125mcg daily 01/14/2018 02/08/2018 Inactive metolazone 10 mg tablet RxNorm: 094624 1 Tablet(s) PO every other day as needed uncontrolled edema 01/07/2018 01/13/2018 Inactive metolazone 10 mg tablet RxNorm: 315444 1 Tablet(s) PO every other day as needed uncontrolled edema 01/07/2018 01/06/2018 Inactive Cipro 500 mg tablet RxNorm: 007638 1 Tablet(s) PO BID 201701/05/2018 Inactive Cipro 500 mg tablet RxNorm: 512522 1 Tablet(s) PO BID 201701/15/2018 Inactive Cardizem CD 360 mg capsule,extended release RxNorm: 836241 1 Capsule(s) PO daily 01/05/2018 05/04/2018 Active potassium chloride ER 10 mEq tablet,extended release(part/ cryst) RxNorm: 7405769 2 Capsule(s) PO TID when taking lasix 01/05/2018 05/04/2018 Active potassium chloride ER 10 mEq capsule,extended release RxNorm: 571480 Capsule(s) TAKE 1 CAPSULE BY MOUTH TWICE DAILY WHEN TAKING LASIX (FUROSEMIDE) 11/27/2017 No Stop Date Active potassium chloride ER 10 mEq capsule,extended release RxNorm: 042606 Capsule(s) TAKE 1 CAPSULE BY MOUTH TWICE DAILY WHEN TAKING LASIX (FUROSEMIDE) 11/27/2017 11/26/2017 Inactive fentanyl 25 mcg/hr transdermal patch RxNorm: 927021 1 Patch TD Q72H use with 100mcg patch for a total of 125mcg daily 11/27/2017 12/26/2017 Inactive bumetanide 0.5 mg tablet RxNorm: 989422 1 Tablet(s) PO daily 12/23/2017 Inactive in the afternoon x 3 days then as needed per Dr Silva fentanyl 100 mcg/hr transdermal patch RxNorm: 978951 1 Patch TD Q72H use with 25mcg/hr patch 11/27/2017 12/26/2017 Inactive Lasix 20 mg tablet RxNorm: 145015 TAKE 1 TABLET BY MOUTH TWICE DAILY 10/29/2017 No Stop Date Active oxycodone 30 mg tablet RxNorm: 9478419 1/2 Tablet(s) PO Q6 12/27/2017 Inactive fentanyl 100 mcg/hr transdermal patch RxNorm: 155075 1 Patch TD Q72H use with 25mcg/hr patch 10/29/2017 11/26/2017 Inactive fentanyl 25 mcg/hr transdermal patch RxNorm: 153906 1 Patch TD Q72H use with 100mcg patch for a total of 125mcg daily 10/29/2017 11/26/2017 Inactive pantoprazole 40 mg tablet,delayed release RxNorm: 364636 Tablet(s) Take 1 tablet by mouth daily 10/21/2017 04/18/2018 Active - Ref: [id number] potassium chloride ER 10 mEq capsule,extended release RxNorm: 850403 TAKE 1 CAPSULE BY MOUTH TWICE DAILY WHEN TAKING LASIX (FUROSEMIDE) 10/09/2017 11/26/2017 Inactive fentanyl 25 mcg/hr transdermal patch RxNorm: 377158 1 Patch TD Q72H use with 100mcg patch for a total of 125mcg daily 10/01/2017 10/28/2017 Inactive fentanyl 100 mcg/hr transdermal patch RxNorm: 600093 1 Patch TD Q72H use with 25mcg/hr patch 10/01/2017 10/28/2017 Inactive potassium chloride ER 10 mEq tablet,extended release(part/ cryst) RxNorm: 7948603 1 Capsule(s) PO BID when taking lasix 09/22/2017 01/04/2018 Inactive fentanyl 100 mcg/hr transdermal patch RxNorm: 574451 1 Patch TD Q72H use with 25mcg/hr patch 08/31/2017 09/29/2017 Inactive Kenalog 40 mg/mL suspension for injection RxNorm: 0136909 1 Milliliter(s) Inj 08/31/2017 08/31/2017 Inactive fentanyl 25 mcg/hr transdermal patch RxNorm: 409443 1 Patch TD Q72H use with 100mcg patch for a total of 125mcg daily 08/31/2017 09/29/2017 Inactive oxycodone 30 mg tablet RxNorm: 6311357 1/2 Tablet(s) PO Q6 04/201710/28/2017 Inactive cyanocobalamin (vit B-12) 1,000 mcg/mL injection solution RxNorm: 600901 1 Milliliter(s) Inj monthly 08/21/201708/15 Active please provide her with syringe/needle for injection cyanocobalamin (vit B-12) 1,000 mcg/mL injection solution RxNorm: 368697 1 Milliliter(s) Inj monthly 08/21/201708/20 Inactive please provide her with syringe/needle for injection Kenalog 40 mg/mL suspension for injection RxNorm: 6285677 2 Milliliter(s) Inj 1mL in each shoulder 08/21/2017 08/21/2017 Inactive cyanocobalamin (vit B-12) 1,000 mcg/mL injection solution RxNorm: 791121 1 Milliliter(s) Inj monthly 08/21/201708/20 Inactive please provide her with syringe/needle for injection Kenalog 40 mg/mL suspension for injection RxNorm: 7425044 2 Milliliter(s) Inj UD 08/12/2017 08/12/2017 Inactive fentanyl 25 mcg/hr transdermal patch RxNorm: 838227 1 Patch TD Q72H use with 100mcg patch for a total of 125mcg daily 08/05/2017 08/30/2017 Inactive fentanyl 100 mcg/hr transdermal patch RxNorm: 315593 1 Patch TD Q72H use with 25mcg/hr patch 08/05/2017 08/30/2017 Inactive Kenalog 40 mg/mL suspension for injection RxNorm: 1867858 2 Milliliter(s) Inj 1mL per shoulder 08/05/2017 08/05/2017 Inactive clindamycin HCl 150 mg capsule RxNorm: 804861 1 Capsule(s) PO QID Dr Shultz prescribed 07/23/2017 07/29/2017 Inactive prednisone 5 mg tablet RxNorm: 918454 1 Tablet(s) PO daily 11/201707/03/2018 Active fentanyl 25 mcg/hr transdermal patch RxNorm: 336234 1 Patch TD Q72H use with 100mcg patch for a total of 125mcg daily 07/01/2017 07/30/2017 Inactive Lasix 20 mg tablet RxNorm: 719529 1 Tablet(s) PO BID 201710/28/2017 Inactive fentanyl 100 mcg/hr transdermal patch RxNorm: 653687 1 Patch TD Q72H use with 25mcg/hr patch 07/01/2017 07/30/2017 Inactive potassium chloride ER 10 mEq capsule,extended release RxNorm: 333919 1 Capsule(s) PO BID when taking lasix 07/01/20172017 Inactive oxycodone 30 mg tablet RxNorm: 6674883 1/2 Tablet(s) PO Q6 08/22/2017 Inactive fentanyl 100 mcg/hr transdermal patch RxNorm: 385187 1 Patch TD Q72H use with 25mcg/hr patch 05/07/2017 06/05/2017 Inactive fentanyl 25 mcg/hr transdermal patch RxNorm: 427507 1 Patch TD Q72H use with 100mcg patch for a total of 125mcg daily 05/07/2017 06/05/2017 Inactive fentanyl 100 mcg/hr transdermal patch RxNorm: 235861 1 Patch TD Q72H 04/08/2017 05/06/2017 Inactive fentanyl 25 mcg/hr transdermal patch RxNorm: 210783 1 Patch TD Q72H use with 100mcg patch for a total of 125mcg daily 04/08/2017 05/06/2017 Inactive Kenalog 40 mg/mL suspension for injection RxNorm: 7529471 1.5 Milliliter(s) Inj 04/02/2017 04/02/2017 Inactive fentanyl 100 mcg/hr transdermal patch RxNorm: 065604 1 Patch TD Q72H 03/12/2017 04/07/2017 Inactive fentanyl 25 mcg/hr transdermal patch RxNorm: 073460 1 Patch TD Q72H use with 100mcg patch for a total of 125mcg daily 03/12/2017 04/07/2017 Inactive oxycodone 30 mg tablet RxNorm: 0619295 1/2 Tablet(s) PO Q6 09/201704/07/2017 Inactive cyanocobalamin (vit B-12) 1,000 mcg/mL injection syringe RxNorm: 158098 1 Milliliter(s) Inj monthly 02/16/2017 No Stop Date Active please provide with supplys needed for injection fentanyl 100 mcg/hr transdermal patch RxNorm: 323312 1 Patch TD Q72H 02/06/2017 03/07/2017 Inactive Myrbetriq 50 mg tablet,extended release RxNorm: 0853582 1 Tablet(s) PO QPM 12/11/2016 07/22/2017 Inactive oxycodone 30 mg tablet RxNorm: 9487166 1/2 Tablet(s) PO Q6 10/201601/06/2017 Inactive naproxen 500 mg tablet RxNorm: 672244 1 Tablet(s) PO BID Take 1 tablet by mouth two times daily as needed 12/08/201607/08 Inactive - First Attempt Ref: [id number] Myrbetriq 50 mg tablet,extended release RxNorm: 1337469 1 Tablet(s) PO QPM 11/17/2016 12/10/2016 Inactive fentanyl 100 mcg/hr transdermal patch RxNorm: 760323 1 Patch TD Q72H 11/12/2016 12/11/2016 Inactive Vesicare 10 mg tablet RxNorm: 829657 1 Tablet(s) PO QPM 201611/18/2016 Inactive oxycodone 10 mg tablet RxNorm: 5874497 1-2 Tablet(s) PO Q4 PRN as needed to take between 30mg dose if needed for extra pain control 201612/07/2016 Inactive fentanyl 75 mcg/hr transdermal patch RxNorm: 654946 1 TD Q72H 10/22/2016 11/10/2016 Inactive oxycodone 10 mg tablet RxNorm: 5971228 1-2 Tablet(s) PO Q4 PRN as needed to take between 30mg dose if needed for extra pain control 201611/04/2016 Inactive Kenalog 40 mg/mL suspension for injection RxNorm: 6728295 1 Milliliter(s) Inj 10/02/2016 10/02/2016 Inactive Kenalog 40 mg/mL suspension for injection RxNorm: 7051526 1 Milliliter(s) Inj 09/12/2016 09/12/2016 Inactive cyclobenzaprine 5 mg tablet RxNorm: 674074 1 Tablet(s) PO Q8 as needed muscle spasms 09/11/2016 07/22/2017 Inactive prednisone 10 mg tablets in a dose pack RxNorm: 301580 1 Tablet(s) PO UD 09/09/2016 06/23/2017 Inactive potassium chloride ER 10 mEq capsule,extended release RxNorm: 027820 1 Capsule(s) PO BID as needed when taking lasix 08/26/2016 06/30/2017 Inactive Lasix 20 mg tablet RxNorm: 306976 1 Tablet(s) PO BID daily x 10 days then as needed edema 08/26/2016 12/23/2016 Inactive naproxen 500 mg tablet RxNorm: 499310 Take 1 tablet by mouth two times daily as needed 08/18/2016 11/15/2016 Inactive - First Attempt Ref: [id number] Lasix 20 mg tablet RxNorm: 513923 1 Tablet(s) PO QAM daily x 10 days then as needed edema 08/18/2016 08/25/2016 Inactive Vesicare 5 mg tablet RxNorm: 752995 1 Tablet(s) PO QPM 201611/04/2016 Inactive potassium chloride ER 10 mEq capsule,extended release RxNorm: 635536 1 Capsule(s) PO QAM as needed when taking lasix 08/18/2016 08/25/2016 Inactive Myrbetriq 25 mg tablet,extended release RxNorm: 9576071 1 Tablet(s) PO QHS 07/14/2016 07/29/2016 Inactive pantoprazole 40 mg tablet,delayed release RxNorm: 694760 Take 1 tablet by mouth daily 06/30/2016 12/26/2016 Inactive - Ref: [id number] Embeda 20 mg-0.8 mg capsule, extend release, oral only RxNorm: 772160 1 Capsule(s ) PO daily 06/04/2016 06/03/2016 Inactive Embeda 20 mg-0.8 mg capsule, extend release, oral only RxNorm: 235189 1 Capsule(s ) PO daily 06/04/2016 07/01/2016 Inactive oxycodone 10 mg tablet RxNorm: 5806141 1 Tablet(s) PO QID as needed to take between 30mg dose if needed for extra pain control 201606/10/2016 Inactive oxycodone 30 mg tablet RxNorm: 1137250 1 Tablet(s) PO Q6 201611/04/2016 Inactive cyanocobalamin (vit B-12) 1,000 mcg/mL injection solution RxNorm: 730419 1 Milliliter(s) Inj monthly 02/22/201602/15 Inactive she also needs syringes/ needles for this solution QS oxycodone 30 mg tablet RxNorm: 9579982 1 Tablet(s) PO Q6 201503/19/2016 Inactive oxycodone 10 mg tablet RxNorm: 1175900 1 Tablet(s) PO QID as needed to take between 30mg dose if needed for extra pain control 201503/19/2016 Inactive oxycodone 10 mg tablet RxNorm: 4593189 1 Tablet(s) PO QID as needed to take between 30mg dose if needed for extra pain control 201502/18/2016 Inactive oxycodone 30 mg tablet RxNorm: 8291226 1 Tablet(s) PO Q6 201502/18/2016 Inactive pantoprazole 40 mg tablet,delayed release RxNorm: 033318 Take 1 tablet by mouth daily 01/22/2016 06/29/2016 Inactive - First Attempt Ref: [id number] oxycodone 30 mg tablet RxNorm: 5503496 1 Tablet(s) PO Q6 201501/28/2016 Inactive oxycodone 10 mg tablet RxNorm: 6519196 1 Tablet(s) PO QID as needed take between 20mg dose if needed for extra pain control 11/07/2015 12/06/2015 Inactive oxycodone 20 mg tablet RxNorm: 4142260 1 Tablet(s) PO Q6 as needed 11/07/2015 12/31/2015 Inactive doxycycline hyclate 100 mg tablet RxNorm: 576980 1 Tablet(s) PO BID 11/01/2015 11/10/2015 Inactive potassium chloride ER 10 mEq capsule,extended release RxNorm: 980981 1 Capsule(s) PO TIW as needed when taking lasix 09/04/2015 08/17/2016 Inactive Voltaren 1 % topical gel RxNorm: 396509 2 Gram(s) TOP QID 08/2909/03/2015 Inactive pa approved Voltaren 1 % topical gel RxNorm: 411222 2 Gram(s) TOP QID 08/0808/29/2015 Inactive naproxen 500 mg tablet RxNorm: 796260 1 Tablet(s) PO BID 201508/17/2016 Inactive naproxen 500 mg tablet RxNorm: 993145 1 Tablet(s) PO BID 201508/08/2015 Inactive doxycycline hyclate 100 mg tablet RxNorm: 763731 1 Tablet(s) PO BID do not take calcium/vitamin d while on antibiotic 07/18/2015 07/31/2015 Inactive Vitamin D2 50,000 unit capsule RxNorm: 271513 1 Capsule(s) PO QW 07/02/2015 11/18/2015 Inactive Premarin 0.3 mg tablet RxNorm: 586597 1 Tablet(s) PO daily 12/201505/09/2015 Inactive Premarin 0.3 mg tablet RxNorm: 995004 1 Tablet(s) PO daily 12/201503/17/2016 Inactive simvastatin 40 mg tablet RxNorm: 472416 1 Tablet(s) PO daily 03/17/2016 Inactive spironolactone 25 mg tablet RxNorm: 300831 TAKE ONE TABLET BY MOUTH DAILY 05/07/2015 05/27/2016 Inactive potassium chloride ER 10 mEq capsule,extended release RxNorm: 781203 1 Capsule(s) PO TIW as needed when taking lasix 04/17/2015 09/03/2015 Inactive alendronate 70 mg tablet RxNorm: 727826 1 Tablet(s) PO weekly QW 04/17/2015 07/01/2015 Inactive Vitamin D2 50,000 unit capsule RxNorm: 935569 1 Capsule(s) PO QW 03/30/2015 06/27/2015 Inactive Vitamin D2 50,000 unit capsule RxNorm: 552167 1 Capsule(s) PO QW 03/21/2015 03/29/2015 Inactive cyanocobalamin (vit B-12) 1,000 mcg/mL injection solution RxNorm: 358297 1 Milliliter(s) Inj monthly 03/19/201502/20 Inactive cyanocobalamin (vit B-12) 1,000 mcg/mL injection solution RxNorm: 817087 1 Milliliter(s) Inj monthly 03/16/201503/18 Inactive cyanocobalamin (vit B-12) 1,000 mcg/mL injection solution RxNorm: 412806 1 Milliliter(s) Inj monthly 03/16/201503/15 Inactive pantoprazole 40 mg tablet,delayed release RxNorm: 424389 1 Tablet(s) PO daily 03/05/2015 01/21/2016 Inactive Lasix 20 mg tablet RxNorm: 860468 1 Tablet(s) PO TIW as needed edema 02/08/2015 02/02/2016 Inactive oxycodone 10 mg tablet RxNorm: 7805272 1 Tablet(s) PO QID as needed take between 20mg dose if needed for extra pain control 11/09/2014 12/08/2014 Inactive oxycodone 20 mg tablet RxNorm: 5570038 1 Tablet(s) PO Q6 as needed 10/25/2014 11/06/2015 Inactive doxycycline hyclate 100 mg tablet RxNorm: 283440 1 Tablet(s) PO BID 10/23/2014 11/19/2014 Inactive Cipro 500 mg tablet RxNorm: 577934 1 Tablet(s) PO BID 201410/16/2014 Inactive Cipro 500 mg tablet RxNorm: 611488 1 Tablet(s) PO BID 201410/09/2014 Inactive oxycodone 20 mg tablet RxNorm: 9456452 1 Tablet(s) PO Q6 as needed 09/25/2014 10/24/2014 Inactive Lasix 20 mg tablet RxNorm: 556022 1 Tablet(s) PO TIW as needed edema 09/14/2014 01/11/2015 Inactive potassium chloride ER 10 mEq capsule,extended release RxNorm: 338665 1 Capsule(s) PO TIW as needed when taking lasix 09/14/2014 01/11/2015 Inactive doxycycline hyclate 100 mg tablet RxNorm: 203052 1 Tablet(s) PO BID 09/05/2014 09/14/2014 Inactive doxycycline hyclate 100 mg tablet RxNorm: 653832 1 Tablet(s) PO BID 09/05/2014 09/04/2014 Inactive oxycodone 20 mg tablet RxNorm: 6707884 1 Tablet(s) PO Q6 as needed 08/29/2014 09/24/2014 Inactive spironolactone 25 mg tablet RxNorm: 647452 1 Tablet(s) PO daily 08/11/2014 03/08/2015 Inactive oxycodone 20 mg tablet RxNorm: 9378145 1 Tablet(s) PO Q6 as needed 08/02/2014 08/28/2014 Inactive Vitamin D3 2,000 unit tablet RxNorm: 843274 1 Tablet(s) PO daily 07/14/2014 No Stop Date Active Vitamin D2 50,000 unit capsule RxNorm: 886536 1 Capsule(s) PO QW 07/14/2014 10/11/2014 Inactive Vitamin D2 50,000 unit capsule RxNorm: 235933 1 Capsule(s) PO QW 07/14/2014 07/13/2014 Inactive Prolia 60 mg/mL subcutaneous syringe RxNorm: 367638 Milliliter(s) SQ EVERY 6 MONTHS No Start Date Active Carafate 1 gram tablet RxNorm: 941270 1 Tablet(s) PO BID No Start Date Active Miralax oral RxNorm: 359917 oral No Start Date Active Stool Softener oral RxNorm: 06433 oral No Start Date Active Calcium + Vitamin D oral RxNorm: 4018 oral No Start Date Active naproxen 500 mg tablet RxNorm: 227047 1 Tablet(s) PO BID No Start Date 08/05/2015 Inactive albuterol sulfate 2.5 mg/3 mL (0.083 %) solution for nebulization RxNorm: 069582 3 Milliliter(s) INH Q4 PRN No Start Date 02/17/2018 Inactive oxycodone 20 mg tablet RxNorm: 1859720 1 Tablet(s) PO Q6 as needed No Start Date 08/01/2014 Inactive aspirin 81 mg tablet RxNorm: 380150 1 Tablet(s) PO daily No Start Date 07/22/2017 Inactive simvastatin 40 mg tablet RxNorm: 289267 1 Tablet(s) PO daily No Start Date 05/09/2015 Inactive cyanocobalamin (vit B-12) 1,000 mcg/mL injection syringe RxNorm: 191644 1 Inj monthly No Start Date 02/15/2017 Inactive Reglan 10 mg tablet RxNorm: 876904 1 Tablet(s) PO as needed No Start Date 07/29/2016 Inactive alendronate 70 mg tablet RxNorm: 043800 1 Tablet(s) PO weekly No Start Date 04/16/2015 Inactive Protonix 40 mg tablet,delayed release RxNorm: 590254 1 Tablet(s) PO daily No Start Date 03/04/2015 Inactive cyclobenzaprine 5 mg tablet RxNorm: 298098 1 Tablet(s) PO Q8 as needed muscle spasms No Start Date 09/10/2016 Inactive Vitamin D3 1,000 unit capsule RxNorm: 853556 1 Capsule(s) PO daily No Start Date 07/13/2014 Inactive Cardizem CD 360 mg capsule,extended release RxNorm: 515489 1 Capsule(s) PO daily No Start Date 01/04/2018 Inactive prednisone 10 mg tablets in a dose pack RxNorm: 524662 1 Tablet(s) PO UD No Start Date 09/08/2016 Inactive Medication Administered Medication Codes Instructions Start Date Status Kenalog 40 mg/mL suspension for injection RxNorm: 0976037 1Milliliter 08/31/2017 No longer Active Kenalog 40 mg/mL suspension for injection RxNorm: 5775012 2Milliliter 08/21/2017 No longer Active Kenalog 40 mg/mL suspension for injection RxNorm: 7995560 2MilliliterUD 08/12/2017 No longer Active Kenalog 40 mg/mL suspension for injection RxNorm: 7143770 2Milliliter 08/05/2017 No longer Active Kenalog 40 mg/mL suspension for injection RxNorm: 0805489 1.5Milliliter 04/02/2017 No longer Active Kenalog 40 mg/mL suspension for injection RxNorm: 3802912 1Milliliter 10/02/2016 No longer Active Kenalog 40 mg/mL suspension for injection RxNorm: 3473324 1Milliliter 09/12/2016 No longer Active Immunizations Vaccine [...] Tibc Ord40 Fe-%Sat 21.7 % 10/22/2017 Prealbumin 324257 PREALBUMIN 33 mg/dL 10/21/2017 Comp Metabolic Hxp310 NA 134 mEq/L 10/20/2017 Comp Metabolic Avn028 K 3.7 mEq/L 10/20/2017 Comp Metabolic Vxn064 CL 93 mEq/L 10/20/2017 Comp Metabolic Ckj696 CO2 29.0 mEq/L 10/20/2017 Comp Metabolic Vjz492 ANION GAP 16 10/20/2017 Comp Metabolic Gsm720 GLUCOSE 115 mg/dL 10/20/2017 Comp Metabolic Liz787 Creat 0.8 mg/dL 10/20/2017 Comp Metabolic Swi390 eGFR 73 ml/min/1.73m2 10/20/2017 Comp Metabolic Png648 BUN 46 mg/dL 10/20/2017 Comp Metabolic Elm364 B/C Ratio 57.5 Ratio 10/20/2017 Comp Metabolic Isx337 CALCIUM 8.7 mg/dL 10/20/2017 Comp Metabolic Ifb905 ALK PHOS 56 U/L 10/20/2017 Comp Metabolic Xgv327 AST(SGOT) 19 U/L 10/20/2017 Comp Metabolic Rnq202 ALT(SGPT) 23 U/L 10/20/2017 Comp Metabolic Fvh273 BILI T 0.6 mg/dL 10/20/2017 Comp Metabolic Zfo844 ALBUMIN 4.0 g/dL 10/20/2017 Comp Metabolic Bnk884 TPRO 6.6 g/dL 10/20/2017 Comp Metabolic Dii448 GLOB 2.7 g/dL 10/20/2017 Comp Metabolic Lny836 A/G Ratio 1.5 Ratio 10/20/2017 Comp Metabolic Ano806 Osmo 281 mOsmo 10/20/2017 Tsh Ord6 TSH [...] 35.4 pg 10/20/2017 Cbc With Differential Ord2 Banner% 9.9 % 10/20/2017 Cbc With Differential Ord2 [...] 1.15 K/ul 10/20/2017 Cbc With Differential Ord2 Banner ABS# 0.6 K/ul 10/20/2017 Cbc With Differential Ord2 Eos ABS# 0.0 K/ul 10/20/2017 Cbc With Differential Ord2 Baso ABS# 0.0 K/ul 10/20/2017 Iron Ord72 Iron 75 ug/dl 10/20/2017 Romie Reflex Profile [id number] ROMIE (BRYANNA) SCREEN NONE DETECTED 01/12/2017 Comp Metabolic Rqs011 NA 129 mEq/L 01/08/2017 Comp Metabolic Qcj638 K 3.9 mEq/L 01/08/2017 Comp Metabolic Ecu626 CL 94 mEq/L 01/08/2017 Comp Metabolic Spj421 CO2 31.0 mEq/L 01/08/2017 Comp Metabolic Yeq078 ANION GAP 8 01/08/2017 Comp Metabolic Oqr084 GLUCOSE 103 mg/dL 01/08/2017 Comp Metabolic Oql158 Creat 0.9 mg/dL 01/08/2017 Comp Metabolic Kgo960 eGFR 61 ml/min/1.73m2 01/08/2017 Comp Metabolic Koj274 BUN 29 mg/dL 01/08/2017 Comp Metabolic Rvv917 B/C Ratio 30.9 Ratio 01/08/2017 Comp Metabolic Flf757 CALCIUM 8.5 mg/dL 01/08/2017 Comp Metabolic Bzq331 ALK PHOS 58 U/L 01/08/2017 Comp Metabolic Qlb121 AST(SGOT) 17 U/L 01/08/2017 Comp Metabolic Cie404 ALT(SGPT) 10 U/L 01/08/2017 Comp Metabolic Mvb668 BILI T 0.4 mg/dL 01/08/2017 Comp Metabolic Izh238 ALBUMIN 3.0 g/dL 01/08/2017 Comp Metabolic Dbe682 TPRO 5.5 g/dL 01/08/2017 Comp Metabolic Jpw536 GLOB 2.5 g/dL 01/08/2017 Comp Metabolic Smb507 A/G Ratio 1.2 Ratio 01/08/2017 Comp Metabolic Dub693 Osmo 265 mOsmo 01/08/2017 Cbc With Differential [...] 33.8 pg 01/08/2017 Cbc With Differential Ord2 Banner% 12.2 % 01/08/2017 Cbc With Differential Ord2 [...] 1.62 K/ul 01/08/2017 Cbc With Differential Ord2 Banner ABS# 0.9 K/ul 01/08/2017 Cbc With Differential [...] 33.1 pg 11/10/2016 Cbc With Differential Ord2 Banner% 9.1 % 11/10/2016 Cbc With Differential Ord2 [...] 0.78 K/ul 11/10/2016 Cbc With Differential Ord2 Banner ABS# 0.5 K/ul 11/10/2016 Cbc With Differential [...] 30.3 pg 10/07/2016 Cbc With Differential Ord2 Banner% 11.8 % 10/07/2016 Cbc With Differential Ord2 [...] 1.54 K/ul 10/07/2016 Cbc With Differential Ord2 Banner ABS# 1.0 K/ul 10/07/2016 Cbc With Differential Ord2 Eos ABS# 0.1 K/ul 10/07/2016 Cbc With Differential Ord2 Baso ABS# 0.0 K/ul 10/07/2016 Comp Metabolic Oer024 NA 129 mEq/L 08/26/2016 Comp Metabolic Lty497 K 3.9 mEq/L 08/26/2016 Comp Metabolic Nrw226 CL 93 mEq/L 08/26/2016 Comp Metabolic Kul842 CO2 30.0 mEq/L 08/26/2016 Comp Metabolic Keq210 ANION GAP 10 08/26/2016 Comp Metabolic Cgj639 GLUCOSE 87 mg/dL 08/26/2016 Comp Metabolic Upj837 Creat 0.6 mg/dL 08/26/2016 Comp Metabolic Fpo611 eGFR 96 ml/min/1.73m2 08/26/2016 Comp Metabolic Jax148 BUN 17 mg/dL 08/26/2016 Comp Metabolic Quw162 B/C Ratio 27.0 Ratio 08/26/2016 Comp Metabolic Suh441 CALCIUM 7.6 mg/dL 08/26/2016 Comp Metabolic Msn659 ALK PHOS 72 U/L 08/26/2016 Comp Metabolic Wdw000 AST(SGOT) 20 U/L 08/26/2016 Comp Metabolic Mcy465 ALT(SGPT) 12 U/L 08/26/2016 Comp Metabolic Uvw913 BILI T 0.3 mg/dL 08/26/2016 Comp Metabolic Gqz954 ALBUMIN 2.7 g/dL 08/26/2016 Comp Metabolic Emv911 TPRO 5.3 g/dL 08/26/2016 Comp Metabolic Wpm739 GLOB 2.6 g/dL 08/26/2016 Comp Metabolic Qhs562 A/G Ratio 1.1 Ratio 08/26/2016 Comp Metabolic Vqf772 Osmo 260 mOsmo 08/26/2016 Cbc With Differential [...] 28.3 pg 08/26/2016 Cbc With Differential Ord2 Banner% 9.6 % 08/26/2016 Cbc With Differential Ord2 [...] 1.83 K/ul 08/26/2016 Cbc With Differential Ord2 [facility]anner ABS# 1.0 K/ul 08/26/2016 Cbc With Differential Ord2 Eos ABS# 0.1 K/ul 08/26/2016 Cbc With Differential Ord2 Baso ABS# 0.0 K/ul 08/26/2016 Magnesium Ord90 Mag 1.9 mg/dL 08/26/2016 Vitamin D 25 Oh [id number] VITAMIN D, 25 HYDROXY 34.59 ng/mL Tibc Ord40 Iron 13 ug/dl 08/26/2016 Tibc Ord40 UIBC 283 ug/dL 08/26/2016 Tibc Ord40 TIBC 296 ug/dL 08/26/2016 Tibc Ord40 Fe-%Sat 4.4 % 08/26/2016 Ferritin Ord22 FERRITIN 28.8 ng/mL 08/26/2016 Sed Rate Ord21 ESR 20 mm/hr 11/19/2015 Comp Metabolic Ojs776 NA 131 mEq/L 08/22/2015 Comp Metabolic Lei889 K 4.2 mEq/L 08/22/2015 Comp Metabolic Yvk449 CL 98 mEq/L 08/22/2015 Comp Metabolic Wdw279 CO2 27.0 mEq/L 08/22/2015 Comp Metabolic Dyu812 ANION GAP 10 08/22/2015 Comp Metabolic Vgd970 GLUCOSE 80 mg/dL 08/22/2015 Comp Metabolic Fnb048 Creat 0.5 mg/dL 08/22/2015 Comp Metabolic Tji758 eGFR 120 ml/min/1.73m2 08/22/2015 Comp Metabolic Ldh434 BUN 13 mg/dL 08/22/2015 Comp Metabolic Pnj205 B/C Ratio 25.0 Ratio 08/22/2015 Comp Metabolic Spb113 CALCIUM 8.2 mg/dL 08/22/2015 Comp Metabolic Jtk240 ALK PHOS 49 U/L 08/22/2015 Comp Metabolic Qfn968 AST(SGOT) 18 U/L 08/22/2015 Comp Metabolic Ruz885 ALT(SGPT) 11 U/L 08/22/2015 Comp Metabolic Qzx557 BILI T 0.5 mg/dL 08/22/2015 Comp Metabolic Ich488 ALBUMIN 3.5 g/dL 08/22/2015 Comp Metabolic Eio049 TPRO 6.2 g/dL 08/22/2015 Comp Metabolic Owo624 GLOB 2.7 g/dL 08/22/2015 Comp Metabolic Wfq902 A/G Ratio 1.3 Ratio 08/22/2015 Comp Metabolic Ckq396 Osmo 262 mOsmo 08/22/2015 Cbc With Differential [...] 32.4 pg 08/22/2015 Cbc With Differential Ord2 Banner% 10.3 % 08/22/2015 Cbc With Differential Ord2 [...] 1.39 K/ul 08/22/2015 Cbc With Differential Ord2 [facility] ABS# 0.7 K/ul 08/22/2015 Cbc With Differential Ord2 Eos ABS# 0.1 K/ul 08/22/2015 Cbc With Differential Ord2 Baso ABS# 0.0 K/ul 08/22/2015 Tsh Ord6 hTSH II 2.19 uIU/mL 08/22/2015 Vitamin D 25 Oh Hgn7525 VITAMIN D, 25 HYDROXY 55.10 ng/mL Lipid [...] 1.5 Ratio 03/16/2015 Vitamin D 25 Oh Baa9875 VITAMIN D, 25 HYDROXY 28.94 ng/mL Cbc [...] 28.1 pg 03/16/2015 Cbc With Differential Ord2 Banner% 11.2 % 03/16/2015 Cbc With Differential Ord2 [...] 2.37 K/ul 03/16/2015 Cbc With Differential Ord2 [facility] ABS# 0.8 K/ul 03/16/2015 Cbc With Differential Ord2 Eos ABS# 0.1 K/ul 03/16/2015 Cbc With Differential Ord2 Baso ABS# 0.0 K/ul 03/16/2015 Cbc With Differential Ord2 New Analyzer Notice Please note new ref ranges starting 03-14-2015 due to implemntation of new five part differential hematolgy analyzer. 03/16/2015 Comp Metabolic Gkn742 NA 131 mEq/L 03/16/2015 Comp Metabolic Zem787 K 4.1 mEq/L 03/16/2015 Comp Metabolic Xik514 CL 94 mEq/L 03/16/2015 Comp Metabolic Zjb804 CO2 28.0 mEq/L 03/16/2015 Comp Metabolic Esv884 ANION GAP 13 03/16/2015 Comp Metabolic Eev278 GLUCOSE 96 mg/dL 03/16/2015 Comp Metabolic Hfz508 Creat 0.7 mg/dL 03/16/2015 Comp Metabolic Fdd322 eGFR 80 ml/min/1.73m2 03/16/2015 Comp Metabolic Myi155 BUN 16 mg/dL 03/16/2015 Comp Metabolic Pht333 B/C Ratio 21.6 Ratio 03/16/2015 Comp Metabolic Ilh472 CALCIUM 8.9 mg/dL 03/16/2015 Comp Metabolic Xcw631 ALK PHOS 44 U/L 03/16/2015 Comp Metabolic Yne632 AST(SGOT) 22 U/L 03/16/2015 Comp Metabolic Lwh214 ALT(SGPT) 14 U/L 03/16/2015 Comp Metabolic Tzt266 BILI T 0.5 mg/dL 03/16/2015 Comp Metabolic Qoz847 ALBUMIN 3.4 g/dL 03/16/2015 Comp Metabolic Xas851 TPRO 6.0 g/dL 03/16/2015 Comp Metabolic Bqv439 GLOB 2.6 g/dL 03/16/2015 Comp Metabolic Jid411 A/G Ratio 1.3 Ratio 03/16/2015 Comp Metabolic Rcw863 Osmo 264 mOsmo 03/16/2015 Comp Metabolic Ukl256 NA 129 mEq/L 11/09/2014 Comp Metabolic Snj699 K 4.2 mEq/L 11/09/2014 Comp Metabolic Wqp695 CL 96 mEq/L 11/09/2014 Comp Metabolic Ggd613 CO2 27.0 mEq/L 11/09/2014 Comp Metabolic Jhu668 ANION GAP 10 11/09/2014 Comp Metabolic Itk048 GLUCOSE 144 mg/dL 11/09/2014 Comp Metabolic Ndi415 Creat 0.8 mg/dL 11/09/2014 Comp Metabolic Giy948 eGFR 73 ml/min/1.73m2 11/09/2014 Comp Metabolic Msv182 BUN 22 mg/dL 11/09/2014 Comp Metabolic Qfq777 B/C Ratio 27.5 Ratio 11/09/2014 Comp Metabolic Ssc559 CALCIUM 8.6 mg/dL 11/09/2014 Comp Metabolic Rde449 ALK PHOS 55 U/L 11/09/2014 Comp Metabolic Ygs777 AST(SGOT) 27 U/L 11/09/2014 Comp Metabolic Wgm247 ALT(SGPT) 18 U/L 11/09/2014 Comp Metabolic Dbz188 BILI T 0.5 mg/dL 11/09/2014 Comp Metabolic Ofz232 ALBUMIN 3.0 g/dL 11/09/2014 Comp Metabolic Bss556 TPRO 5.4 g/dL 11/09/2014 Comp Metabolic Ugi080 GLOB 2.4 g/dL 11/09/2014 Comp Metabolic Myn235 A/G Ratio 1.3 Ratio 11/09/2014 Comp Metabolic Dez068 Osmo 265 mOsmo 11/09/2014 Magnesium Ord90 Mag [...] impaction 01/08/2017 None Full Exam - General 1995 Ears/Nose/Throat lips/teeth/gingiva Overall: benign lips 01/08/2017 None Full Exam - General 1995 Ears/Nose/Throat lips/teeth/gingiva Overall: normal dentition 01/08/2017 None Full Exam - General 1994 Ears/Nose/Throat oral cavity/pharynx/larynx Overall: oral mucosa clear 01/08/2017 None Full Exam - General 1995 Ears/Nose/Throat oral cavity/pharynx/larynx Overall: oropharyngeal mucosa clear 01/08/2017 None Full Exam - General 1995 Ears/Nose/Throat oral cavity/pharynx/larynx Overall: hypopharynx benign 01/08/2017 None Full Exam - General 1995 Ears/Nose/Throat oral cavity/pharynx/larynx Overall: no masses 01/08/2017 [...] accomodation 11/10/2016 None Full Exam - General 1995 Ears/Nose/Throat lips/teeth/gingiva Overall: benign lips 11/10/2016 None Full Exam - General 1995 Ears/Nose/Throat oral cavity/pharynx/larynx Overall: oral mucosa clear 11/10/2016 None Full Exam - General 1995 Ears/Nose/Throat [...] Procedures Procedure Codes Date DRAIN/INJECT JOINT/BURSA CPT-4: 76502 08/21/2017 DRAIN/INJECT JOINT/BURSA CPT-4: 58867 08/12/2017 TRIAMCINOLONE ACET INJ NOS CPT-4: J3301 08/12/2017 DRAIN/INJECT JOINT/BURSA CPT-4: 94153 08/05/2017 TRIAMCINOLONE ACET INJ NOS CPT-4: J3301 08/05/2017 DRAIN/INJECT JOINT/BURSA CPT-4: 54602 07/23/2017 DRAIN/INJECT JOINT/BURSA CPT-4: 09887 07/09/2017 TRIAMCINOLONE ACET INJ NOS CPT-4: J3301 07/09/2017 PRESCRIP TRANSMIT VIA ERX SY CPT-4: G8553 07/09/2017 DRAIN/INJECT JOINT/BURSA CPT-4: 68186 07/01/2017 TRIAMCINOLONE ACET INJ NOS CPT-4: J3301 07/01/2017 PRESCRIP TRANSMIT VIA ERX SY CPT-4: G8553 07/01/2017 DRAIN/INJECT JOINT/BURSA CPT-4: 75311 06/17/2017 DRAIN/INJECT JOINT/BURSA CPT-4: 31569 04/02/2017 TRIAMCINOLONE ACET INJ NOS CPT-4: J3301 04/02/2017 DRAIN/INJECT JOINT/BURSA CPT-4: 56310 02/06/2017 ADMIN INFLUENZA VIRUS VAC CPT-4: G0008 12/08/2016 FLU VACC PRSV FREE INC ANTIG CPT-4: 70485 12/08/2016 PRESCRIP TRANSMIT VIA ERX SY CPT-4: G8553 12/08/2016 PRESCRIP TRANSMIT VIA ERX SY CPT-4: G8553 11/17/2016 TRIAMCINOLONE ACET INJ NOS CPT-4: J3301 10/02/2016 TRIAMCINOLONE ACET INJ NOS CPT-4: J3301 09/12/2016 DRAIN/INJECT JOINT/BURSA CPT-4: 74721 09/08/2016 TRIAMCINOLONE ACET INJ NOS CPT-4: J3301 09/08/2016 PRESCRIP TRANSMIT VIA ERX SY CPT-4: G8553 08/26/2016 PRESCRIP TRANSMIT VIA ERX SY CPT-4: G8553 08/18/2016 ADMIN INFLUENZA VIRUS VAC CPT-4: G0008 11/19/2015 FLU VACC PRSV FREE INC ANTIG Formatting Model/CDA Sections, Assigned to/Luanne Elaine CPT-4: 31540Sluatdo 11/19/2015 PRESCRIP TRANSMIT VIA ERX SY CPT-4: G8553 09/04/2015 PRESCRIP TRANSMIT VIA ERX SY CPT-4: G8553 2015 PRESCRIP TRANSMIT VIA ERX SY CPT-4: G8553 07/18/2015 PRESCRIP TRANSMIT VIA ERX SY CPT-4: G8553 07/02/2015 REMOVE IMPACTED EAR WAX UNI CPT-4: 84418 04/09/2015 PRESCRIP TRANSMIT VIA ERX SY CPT-4: G8553 02/08/2015 ADMIN INFLUENZA VIRUS VAC CPT-4: G0008 01/10/2015 FLU VACC PRSV FREE INC ANTIG Formatting Model/CDA Sections, Assigned to/Luanne Elaine CPT-4: 27345Cluuoyn 01/10/2015 ADMIN PNEUMOCOCCAL VACCINE Formatting Model/CDA Sections, Assigned to SNOMED CT: 79669661 CPT-4: S5827Anplfug 12/11/2014 PNEUMOCOCCAL VACC [address]: [id number] CPT-4: 61185 12/11/2014 Vital Signs Date Vital 02/12/2018 Blood [...] Code : 8480-6 BMI: 23.5 Code : 79855-7 Heart Rate 1 : 58 bpm Height: 5'8" SpO2: 96% Weight: 152 lbs 11/30/2017 Blood Pressure 1: 122/70 Code : 8480-6 Heart Rate 1: 105 bpm Height: 5'8" SpO2: 98% Weight: 11/27/2017 Blood Pressure 1: 148/76 Code : 8480-6 Heart Rate 1: 72 bpm Height: 5'8" SpO2: 99% Weight: 11/10/2017 Blood Pressure 1: 130/76 Code : 8480-6 BMI: 27.3 Code : 75563-7 Heart Rate 1 : 98 bpm Height: [...] Code : 8480-6 BMI: 24.7 Code : 67759-3 Heart Rate 1 : 100 bpm Height: 5'8" SpO2: 95% Weight: 160 lbs 08/31/2017 Blood Pressure 1: 128/78 Code : 8480-6 BMI: 23.6 Code : 95574-7 Heart Rate 1 : 102 bpm Height: 5'8" SpO2: 96% Weight: 153 lbs 08/21/2017 Blood Pressure 1: 138/78 Code : 8480-6 Heart Rate 1: 97 bpm SpO2: 95% Weight: 156 lbs 2 oz 08/12/2017 Blood Pressure 1: 138/74 Code : 8480-6 BMI: 25.0 Code : 17230-1 Heart Rate 1 : 94 bpm Height: 5'8" SpO2: 98% Weight: 162 lbs 08/05/2017 Blood Pressure 1: 126/78 Code : 8480-6 BMI: 25.8 Code : 58850-1 Heart Rate 1 : 74 bpm Height: 5'8" SpO2: 96% Weight: 167 lbs 07/23/2017 Blood Pressure 1: 106/64 Code : 8480-6 BMI: 25.3 Code : 55945-5 Heart Rate 1 : 81 bpm Height: 5'8" SpO2: 99% Weight: 163 lbs 14 oz 07/09/2017 Blood Pressure 1: 130/68 Code : 8480-6 Heart Rate 1: 82 bpm Height: 5'8" SpO2: 98% Weight: 07/01/2017 Blood Pressure 1: 124/76 Code : 8480-6 BMI: 26.5 Code : 04304-3 Heart Rate 1 : 99 bpm Height: 5'8" SpO2: 98% Weight: 172 lbs 06/24/2017 Blood Pressure 1: 118/70 Code : 8480-6 Heart Rate 1: 103 bpm Height: 5'8" SpO2: 98% Weight: 06/17/2017 Blood Pressure 1: 110/64 Code : 8480-6 BMI: 25.0 Code : 15246-2 Heart Rate 1 : 73 bpm Height: 5'8" Weight: 162 lbs 06/01/2017 Blood Pressure 1: 158/84 Code : 8480-6 BMI: 24.4 Code : 87834-2 Heart Rate 1 : 94 bpm Height: 5'8" SpO2: 95% Weight: 158 lbs 04/02/2017 Blood Pressure 1: 164/80 Code : 8480-6 BMI: 23.1 Code : 78827-4 Heart Rate 1 : 76 bpm Height: 5'8" SpO2: 94% Weight: 150 lbs 03/12/2017 Blood Pressure 1: 130/74 Code : 8480-6 BMI: 23.0 Code : 97468-5 Heart Rate 1 : 92 bpm Height: 5'8" SpO2: 94% Weight: 149 lbs 02/06/2017 Height: Weight: 01/08/2017 Blood Pressure 1: 136/76 Code : 8480-6 BMI: 21.4 Code : 15741-8 Heart Rate 1 : 85 bpm Height: 5'8" SpO2: 98% Weight: 138 lbs 8 oz 12/08/2016 Blood Pressure 1: 132/66 Code : 8480-6 BMI: 22.2 Code : 96022-3 Heart Rate 1 : 106 bpm Height: 5'8" SpO2: 97% Weight: 144 lbs 11/17/2016 Blood Pressure 1: 146/80 Code : 8480-6 BMI: 22.4 Code : 62980-2 Heart Rate 1 : 100 bpm Height: 5'8" SpO2: 98% Weight: 145 lbs 11/10/2016 Blood Pressure 1: 122/62 Code : 8480-6 BMI: 22.2 Code : 65754-9 Height: 5'8" Weight: 144 lbs 11/05/2016 Blood Pressure 1: 146/80 Code : 8480-6 BMI: 22.2 Code : 60681-0 Heart Rate 1 : 77 bpm Height: 5'8" SpO2: 99% Weight: 144 lbs 10/07/2016 Blood Pressure 1: 132/68 Code : 8480-6 BMI: 22.8 Code : 83363-5 Heart Rate 1 : 90 bpm Height: 5'8" SpO2: 97% Weight: 148 lbs 10/02/2016 Blood Pressure 1: 166/86 Code : 8480-6 BMI: 22.8 Code : 41679-6 Heart Rate 1 : 96 bpm Height: 5'8" SpO2: 96% Weight: 148 lbs 09/12/2016 Blood Pressure 1: 130/86 Code : 8480-6 Height: Weight: 09/08/2016 Blood Pressure 1: 132/74 Code : 8480-6 BMI: 22.4 Code : 45559-7 Heart Rate 1 : 93 bpm Height: 5'8" SpO2: 99% Weight: 145 lbs 08/26/2016 Blood Pressure 1: 132/78 Code : 8480-6 BMI: 23.9 Code : 84693-5 Heart Rate 1 : 80 bpm Height: 5'8" SpO2: 94% Weight: 155 lbs 08/18/2016 Blood Pressure 1: 130/70 Code : 8480-6 BMI: 23.6 Code : 90691-8 Heart Rate 1 : 100 bpm Height: 5'8" SpO2: 94% Weight: 153 lbs 07/30/2016 Blood Pressure 1: 144/84 Code : 8480-6 BMI: 22.4 Code : 21031-9 Heart Rate 1 : 86 bpm Height: 5'8" SpO2: 97% Weight: 145 lbs 07/14/2016 Blood Pressure 1: 122/74 Code : 8480-6 BMI: 22.5 Code : 33169-6 Heart Rate 1 : 87 bpm Height: 5'8" SpO2: 97% Weight: 146 lbs 07/04/2016 Blood Pressure 1: 128/78 Code : 8480-6 BMI: 22.5 Code : 87862-0 Heart Rate 1 : 98 bpm Height: 5'8" Weight: 146 lbs 06/26/2016 Blood Pressure 1: 122/68 Code : 8480-6 BMI: 22.5 Code : 03388-8 Heart Rate 1 : 102 bpm Height: 5'8" SpO2: 98% Weight: 146 lbs 05/28/2016 Blood Pressure 1: 122/68 Code : 8480-6 BMI: 22.4 Code : 09483-2 Heart Rate 1 : 89 bpm Height: 5'8" SpO2: 97% Weight: 145 lbs 03/18/2016 Blood Pressure 1: 132/66 Code : 8480-6 BMI: 22.8 Code : 44402-0 Heart Rate 1 : 96 bpm Height: 5'8" SpO2: 98% Weight: 148 lbs 01/29/2016 Blood Pressure 1: 122/66 Code : 8480-6 BMI: 22.2 Code : 00445-2 Heart Rate 1 : 90 bpm Height: 5'8" SpO2: 99% Weight: 144 lbs 01/01/2016 Blood Pressure 1: 148/82 Code : 8480-6 BMI: 22.5 Code : 39563-9 Heart Rate 1 : 82 bpm Height: 5'8" Weight: 146 lbs 11/19/2015 Blood Pressure 1: 140/74 Code : 8480-6 BMI: 23.7 Code : 62447-7 Heart Rate 1 : 79 bpm Height: 5'8" SpO2: 96% Weight: 153 lbs 8 oz 11/01/2015 Blood Pressure 1: 118/72 Code : 8480-6 Heart Rate 1: 90 bpm Height: 5'8" SpO2: 95% 09/04/2015 Blood Pressure 1: 136/72 Code : 8480-6 BMI: 23.1 Code : 62756-6 Heart Rate 1 : 97 bpm Height: 5'8" SpO2: 98% Weight: 149 lbs 8 oz 2015 Blood Pressure 1: 144/76 Code : 8480-6 BMI: 22.8 Code : 26061-3 Heart Rate 1 : 75 bpm Height: 5'8" SpO2: 97% Weight: 148 lbs 07/18/2015 Blood Pressure 1: 132/60 Code : 8480-6 BMI: 23.1 Code : 08195-5 Heart Rate 1 : 78 bpm Height: 5'8" Weight: 150 lbs 07/02/2015 Blood Pressure 1: 156/86 Code : 8480-6 BMI: 23.0 Code : 69993-4 Heart Rate 1 : 75 bpm Height: 5'8" SpO2: 99% Weight: 149 lbs 05/31/2015 Blood Pressure 1: 136/72 Code : 8480-6 BMI: 22.7 Code : 37875-9 Heart Rate 1 : 85 bpm Height: 5'8" SpO2: 97% Weight: 147 lbs 04/09/2015 Blood Pressure 1: 118/60 Code : 8480-6 BMI: 22.7 Code : 83323-4 Heart Rate 1 : 72 bpm Height: 5'8" SpO2: 95% Weight: 147 lbs 02/08/2015 Blood Pressure 1: 138/76 Code : 8480-6 BMI: 23.1 Code : 58943-1 Heart Rate 1 : 80 bpm Height: 5'8" SpO2: 98% Weight: 150 lbs 12/11/2014 Blood Pressure 1: 120/74 Code : 8480-6 BMI: 22.1 Code : 82036-4 Heart Rate 1 : 92 bpm Height: 5'8" SpO2: 96% Weight: 143 lbs 11/09/2014 Blood Pressure 1: 100/64 Code : 8480-6 BMI: 21.6 Code : 14381-5 Heart Rate 1 : 88 bpm Height: 5'8" Weight: 140 lbs 10/23/2014 Blood Pressure 1: 138/82 Code : 8480-6 BMI: 23.6 Code : 70920-3 Heart Rate 1 : 86 bpm Height: 5'8" Weight: 153 lbs 10/16/2014 Blood Pressure 1: 128/60 Code : 8480-6 BMI: 23.3 Code : 64815-4 Heart Rate 1 : 91 bpm Height: 5'8" SpO2: 99% Weight: 151 lbs 10/09/2014 Blood Pressure 1: 120/60 Code : 8480-6 BMI: 23.0 Code : 86459-7 Heart Rate 1 : 96 bpm Height: 5'8" SpO2: 97% Weight: 149 lbs 09/14/2014 Blood Pressure 1: 132/72 Code : 8480-6 BMI: 22.1 Code : 60460-7 Heart Rate 1 : 84 bpm Height: 5'8" SpO2: 97% Weight: 143 lbs 08/11/2014 Blood Pressure 1: 134/74 Code : 8480-6 BMI: 24.1 Code : 13128-0 Heart Rate 1 : 88 bpm Height: 5'8" Weight: 156 lbs 07/12/2014 Blood Pressure 1: 122/62 Code : 8480-6 BMI: 22.7 Code : 97690-2 Heart Rate 1 : 76 bpm Height: [...] Dr. Blanc[place] in [place] and Neurosurgeon in [place] in the past neck pain Significant Medical Conditions spinal stenosis 07/12/2014 has osteoarthritis Advance Directives No Advance Directive data Encounters Encounter Performer Location Codes Date ([id number]) [id number] EST. PATIENT, LEVEL III Diagnosis: Cough[ICD10: R05] Diagnosis: Acute bronchitis, unspecified[ICD10: J20.9] Diagnosis: Chronic obstructive pulmonary disease, unspecified[ICD10: J44.9] Ila Silva MD, [facility] CPT-4: 04298 02/12/2018 ([id number]) 25997 EST. PATIENT, LEVEL IV Diagnosis: Chronic pain syndrome[ICD10: G89.4] Diagnosis: Cough[ICD10: R05] Diagnosis: Diarrhea, unspecified[ICD10: R19.7] Diagnosis: Generalized edema[ICD10: R60.1] Ila Silva MD, [facility] CPT-4: 79000 02/09/2018 ([id number]) 83808 EST. PATIENT, LEVEL III Diagnosis: Generalized edema[ICD10: R60.1] Diagnosis: Lymphedema, not elsewhere classified[ICD10: I89.0] Araceli Silva MD, [facility] CPT-4: 77978 01/14/2018 ([id number]) 87337 EST. PATIENT, LEVEL IV Diagnosis: Essential (primary) hypertension[ICD10: I10] Diagnosis: Generalized edema[ICD10: R60.1] Diagnosis: Chronic pain syndrome[ICD10: G89.4] Araceli Silva MD, [facility] CPT-4: 13486 12/24/2017 ([id number]) 43966 EST. PATIENT, LEVEL III Diagnosis: Lymphedema, not elsewhere classified[ICD10: I89.0] Araceli Silva MD, [facility] CPT-4: 36251 11/30/2017 ([id number]) 70867 EST. PATIENT, LEVEL III Diagnosis: Generalized edema[ICD10: R60.1] Ila Silva MD, [facility] CPT-4: 88214 11/27/2017 ([id number]) 43570 EST. PATIENT, LEVEL IV Diagnosis: Localized edema[ICD10: [...] in left shoulder[ICD10: M25.512] Araceli Silva MD, [facility] CPT-4: 61016 11/10/2017 ([id number]) 84127 EST. PATIENT, LEVEL IV Diagnosis: Localized edema[ICD10: [...] in left shoulder[ICD10: M25.512] Araceli Silva MD, [facility] CPT-4: 30303 10/29/2017 ([id number]) 42761 EST. 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 PATIENT, LEVEL IV Diagnosis: Primary osteoarthritis, left shoulder[ICD10: M19.012] Diagnosis: Pain in left shoulder[ICD10: M25.512] Diagnosis: Lymphedema, not elsewhere classified[ICD10: I89.0] Diagnosis: Localized edema[ICD10: R60.0] Diagnosis: Chronic atrial fibrillation[ICD10: I48.2] Araceli Silva MD, [facility] CPT-4: 41125 09/15/2017 ([id number]) 45242 EST. PATIENT, LEVEL III Diagnosis: Primary osteoarthritis, left shoulder[ICD10: M19.012] Diagnosis: Pain in left shoulder[ICD10: M25.512] Diagnosis: Hemarthrosis, left shoulder[ICD10: M25.012] Araceli Silva MD, [facility] CPT-4: 60119 08/31/2017 ([id number]) 38857 EST. 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 PATIENT, LEVEL III Diagnosis: Localized edema[ICD10: R60.0] Araceli Silva MD, [facility] CPT- 4: 08176 07/23/2017 ([id number]) 88014 EST. PATIENT, LEVEL III Diagnosis: Rheumatoid arthritis without rheumatoid factor, left shoulder[ICD10: M06.012] Diagnosis: Hemarthrosis, left shoulder[ICD10: M25.012] Araceli Silva MD, [facility] CPT-4: 51144 07/09/2017 ([id number]) 79374 EST. PATIENT, LEVEL III Diagnosis: Chronic pain syndrome[ICD10: G89.4] Diagnosis: Rheumatoid arthritis without rheumatoid factor, left shoulder[ICD10: M06.012] Diagnosis: Hemarthrosis, left shoulder[ICD10: M25.012] Diagnosis: Lymphedema, not elsewhere classified[ICD10: I89.0] Araceli Silva MD, [facility] CPT-4: 02481 07/01/2017 ([id number]) 56071 EST. PATIENT, LEVEL III Diagnosis: Chronic pain syndrome[ICD10: G89.4] Araceli Silva MD, [facility] CPT-4: 03946 06/24/2017 ([id number]) 38151 EST. 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 PATIENT, LEVEL III Diagnosis: Pain in left shoulder[ICD10: M25.512] Diagnosis: Hemarthrosis, right shoulder[ICD10: M25.011] Diagnosis: Hemarthrosis, left shoulder[ICD10: M25.012] Maricel Silva MD, [facility] CPT-4: 20262 06/01/2017 ([id number]) 29282 EST. PATIENT, LEVEL II Diagnosis: Pain in right shoulder[ICD10: M25.511] Diagnosis: Hemarthrosis, right shoulder[ICD10: M25.011] Araceli Silva MD, [facility] CPT-4: 84160 04/02/2017 ([id number]) 56580 EST. 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 PATIENT, LEVEL IV Diagnosis: Encounter for immunization[ICD10: Z23] Diagnosis: Chronic pain syndrome[ICD10: G89.4] Diagnosis: Essential (primary) hypertension[ICD10: I10] Araceli Silva MD, [facility] CPT-4: 98890 12/08/2016 ([id number]) 91082 EST. PATIENT, LEVEL III Diagnosis: Urge incontinence[ICD10: N39.41] Diagnosis: Chronic pain syndrome[ICD10: G89.4] Diagnosis: Lymphedema, not elsewhere classified[ICD10: I89.0] Araceli Silva MD, [facility] CPT-4: 54049 11/17/2016 15021 EST. 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 PATIENT, LEVEL IV Diagnosis: Essential (primary) hypertension[ICD10: I10] Diagnosis: Other chronic pain[ICD10: G89.29] Diagnosis: Localized edema[ICD10: R60.0] Diagnosis: Urge incontinence[ICD10: N39.41] Araceli Silva MD, [facility] CPT-4: 44041 11/05/2016 ([id number]) 57916 EST. 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 PATIENT, LEVEL III Diagnosis: Hemarthrosis, right shoulder[ICD10: M25.011] Diagnosis: Pain in right shoulder[ICD10: M25.511] Ila Silva MD, [facility] CPT-4: 48228 10/02/2016 [id number] EST. PATIENT, LEVEL II Diagnosis: Low back pain[ICD10: M54.5] Diagnosis: Sacroiliitis, not elsewhere classified[ICD10: M46.1] Ila Silva MD, [facility] CPT-4: 86512 09/12/2016 ([id number]) 01031 EST. PATIENT, LEVEL III Diagnosis: Hemarthrosis, right shoulder[ICD10: M25.011] Diagnosis: Other chronic pain[ICD10: G89.29] Araceli Silva MD, [facility] CPT-4: 28802 09/08/2016 ([id number]) 72023 EST. PATIENT, LEVEL IV Diagnosis: Other iron deficiency anemias[ICD10: D50.8] Diagnosis: Vitamin D deficiency, unspecified[ICD10: E55.9] Diagnosis: Hypomagnesemia[ICD10: E83.42] Araceli Silva MD, [facility] CPT- 4: 99534 08/26/2016 ([id number]) 74898 EST. PATIENT, LEVEL III Diagnosis: Localized edema[ICD10: R60.0] Araceli Silva MD, [facility] CPT- 4: 08094 08/18/2016 ([id number]) 26130 EST. 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 PATIENT, LEVEL IV Diagnosis: Pain in left shoulder[ICD10: M25.512] Diagnosis: Nocturia[ICD10: R35.1] Maricel Silva MD, [facility] CPT-4: 59623 07/14/2016 29670 EST. PATIENT, LEVEL III Diagnosis: Pain in left shoulder[ICD10: M25.512] Maricel Silva MD, [facility] CPT-4: 04429 07/04/2016 ([id number]) 32737 EST. 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 PATIENT, LEVEL II Diagnosis: Insect bite (nonvenomous) of right upper arm, initial encounter[ICD10 : S40.861A] Ila Silva MD, [facility] CPT-4: 45706 11/01/2015 ([id number]) 41483 EST. 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 PATIENT, LEVEL III Diagnosis: Contusion of left upper arm, subsequent encounter[ICD10: S40.022D] Araceli Silva MD, [facility] CPT-4: 83643 2015 80246 EST. PATIENT, LEVEL III Diagnosis: Cellulitis of left upper limb[ICD10: L03.114] Maricel Silva MD, [facility] CPT-4: 21327 07/18/2015 ([id number]) 73086 EST. 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 PATIENT, LEVEL IV Diagnosis: Essential (primary) hypertension[ICD10: I10] Diagnosis: Vitamin D deficiency, unspecified[ICD10: E55.9] Diagnosis: Mixed hyperlipidemia[ICD10: E78.2] Diagnosis: Age-related osteoporosis with current pathological fracture, unspecified site, sequela[ICD10: M80.00XS] [facility] CPT- 4: 31478 02/08/2015 ([id number]) 80768 EST. PATIENT, LEVEL IV Diagnosis: Essential (primary) hypertension[ICD10: I10] Diagnosis: Localized edema[ICD10: R60.0] Diagnosis: Primary osteoarthritis, unspecified site[ICD10: M19.91] Araceli Silva MD [facility] CPT-4: 10431 12/11/2014 ([id number]) 78930 EST. PATIENT, LEVEL III Diagnosis: EDEMA[ICD9: 782.3] Diagnosis: ESSENTIAL HYPERTENSION[ICD9: 401.9] Araceli Silva MD [facility] CPT-4: 70504 11/09/2014 ([id number]) 86079 EST. PATIENT, LEVEL III Diagnosis: Leg pain[ICD9: 729.5] Diagnosis: Ulcer of toe[ICD9: 707.15] Araceli Silva MD [facility] CPT- 4: 58849 10/23/2014 ([id number]) 66400 EST. PATIENT, LEVEL III Diagnosis: Ulcer of toe[ICD9: 707.15] Araceli Silva MD [facility] CPT- 4: 97258 10/16/2014 19335 EST. PATIENT, LEVEL II Diagnosis: Ulcer of toe[ICD9: 707.15] Ila Silva MD [facility] CPT-4: 49743 10/09/2014 ([id number]) 67991 EST. PATIENT, LEVEL III Diagnosis: EDEMA[ICD9: 782.3] Araceli Silva MD [facility] CPT-4: 27625 09/14/2014 ([id number]) 67160 EST. PATIENT, LEVEL IV Diagnosis: EDEMA[ICD9: 782.3] Diagnosis: ESSENTIAL HYPERTENSION[ICD9: 401.9] Araceli Silva MD [facility] CPT-4: 17221 08/11/2014 ([id number]) OFFICE VISIT, NEW - LEVEL 4 Diagnosis: HYPERLIPIDEMIA[ICD9: 272.4] Diagnosis: VITAMIN D DEFICIENCY[ICD9: 268.9] Diagnosis: Osteoporosis[ICD9: 733.00] Diagnosis: Esophageal reflux[ICD9: 530.81] Diagnosis: Chronic pain[ICD9: 338.29] Araceli Silva MD, [facility] CPT- 4: 39219 07/12/2014 Plan of Care Planned Activity Notes Codes Status Date Visit Plan: Bronchitis - acute case of [...] [facility] 02/12/2018 Appointment: Ila Kennedy WPtel: [address] [place], [place] [phone] (30 min) Complex 02/12/2018 Patient Education: Patient Medication Summary Completed 02/12/2018 Visit Plan: Chronic Pain Syndrome - pt has chronic pain - has been maintained on current medications, has not sought out other medications , only uses PRN pain medications as directed, and understands the consequences of over-medication. Pmjqw-wbafnsazep-jdwcesna with lasix/metolazone -if swelling /weight increase, okay to increase metolazone to daily as directed Cough- okay for robitussin dm Diarrhea- rx for lomotil written and instructed on use-follow up in 3 weeks, sooner if needed. Call with any concerns. 02/09/2018 Appointment: Ila Kennedy WPtel: [address] [place], [place] [phone] (30 min) Complex 02/09/2018 Patient Education: Patient Medication Summary Completed 02/09/2018 Appointment: Araceli Silva WPtel: [address] [place] [address] (15 min) Moderate 02/04/2018 Visit Plan: Edema/Lymphedema [...] over-medication. 01/14/2018 App[facility]ment[phone] [facility] (15 min) Moderate 01/14/2018 Patient Education: [...] oxycodone scheduled. 12/24/2017 Appointment: [facility] [phone] [facility] (30 min) Complex 12/24/2017 Patient Education: [...] output. 11/30/2017 Appointment: [facility] [phone] [facility] (15 min) Moderate 11/30/2017 Patient Education: [...] over-medication. 11/10/2017 Appointment: [facility] [phone] [facility] (15 min) Moderate 11/10/2017 Patient Education: [...] hands/fingers. We will contact [facility] [employer] in [place] for paperwork regarding the scooter. 10/29/2017 Appointment: [facility] [phone] [facility] (15 min) Moderate 10/29/2017 Patient Education: [...] this time. 10/20/2017 Appointment: Araceli Silva WPtel: [address] [place], [place] [address] (30 min) Complex 10/20/2017 Patient Education: Patient [...] today. 09/29/2017 Appointment: [facility] [phone] [facility] (15 min) Moderate 09/29/2017 Patient Education: [...] Summary Completed 08/21/2017 Appointment: Araceli Silva WPtel: [facility] [place] (15 min) Moderate 08/20/2017 Visit Plan: Hemarthrosis shoulders - 250mL from left shoulder and 100mL from right shoulder with 1ml kenalog injected into right and left shoulders - Left and right shoulder pain and swelling, swelling into arms and left breast -pt to continue with use of compression sleeves. [id number] sep 2018 bristol 2ml kenalog 08/12/2017 Appointment: Araceli Silva WPtel: [address] [place] [address] (15 min) Moderate 08/12/2017 Patient Education: Patient [...] peripheral edema. 08/05/2017 Appointment: Araceli Silva WPtel: [facility]5 [facility] (15 min) Moderate 08/05/2017 Patient Education: [...] peripheral edema. 07/23/2017 Appointment: Araceli Silva WPtel: [facility]5 [facility] (15 min) Moderate 07/23/2017 Patient Education: [...] symptoms. 07/09/2017 Appointment: [facility]el[facility] [phone] [facility] [place] (15 min) Moderate 07/09/2017 Patient [...] symptoms. 07/01/2017 Appointment: Araceli Silva WPtel: [phone] [facility] [place] (15 min) Moderate 07/01/2017 Patient Education: Patient Medication Summary Completed 07/01/2017 Visit Plan: Chronic Pain Syndrome - pt has chronic pain - has been maintained on current medications, has not sought out other medications , only uses PRN pain medications as directed, and understands the consequences of over-medication. 06/24/2017 Appointment: [facility]el[facility] [phone] [facility] [place] (15 min) Moderate 06/24/2017 Patient [...] peripheral edema. 06/17/2017 Appointment: Araceli Silva WPtel: [phone] [facility] (30 min) Complex 06/17/2017 Patient Education: Patient Medication Summary Completed 06/17/2017 Appointment: Araceli Silva WPtel: [phone] [facility] [place] (15 min) Moderate 06/08/2017 Care Plan: Referral Order SNOMED-CT : 957500119 Pending 06/02/2017 Visit Plan: Left and right [...] edema. 06/01/2017 Appointment: [phone] [place] (30 min) Complex 06/01/2017 Patient Education: [...] shoulder 04/02/2017 Appointment: [facility]el[facility] [phone] [facility] [place] (15 min) Moderate 04/02/2017 Patient [...] upset. 03/12/2017 Appointment: [facility]el[facility] [phone] [facility] (15 min) Moderate 03/12/2017 Patient Education: [...] check ROMIE. 01/08/2017 Appointment: [facility]el[facility] [phone] [facility] [place] (15 min) Moderate 01/08/2017 Patient [...] with Remicaide. 12/08/2016 Appointment: Araceli Silva WPtel: [phone] [facility] (15 min) Moderate 12/08/2016 Patient Education: [...] now 11/17/2016 Appointment: Araceli Silva WPtel: [phone] [facility] (15 min) Moderate 11/17/2016 Patient Education: [...] over-medication. 11/10/2016 Appointment: Maricel Gee WPtel: [phone] [facility] (30 min) Complex 11/10/2016 Patient Education: Patient [...] steroids, immunosuppression. 11/05/2016 Appointment: Araceli Silva WPtel: [address] [facility] [place] (15 min) Moderate 11/05/2016 Patient Education: [...] cbc today. 10/07/2016 Appointment: Araceli Silva WPtel: [phone] [facility] [place] (15 min) Moderate 10/07/2016 Patient Education: Patient Medication Summary Completed 10/07/2016 Care Plan: Referral Order SNOMED-CT : [id number] Pending 10/07/2016 Care Plan: Referral Order SNOMED-CT : [id number] Pending 10/07/2016 Visit Plan: Hemarthrosis -right shoulder-only able to drain 5ml of bloody drainage-unable to give oral steroids due to recent GI bleed -will give kenalog injection today in the office-discussed getting OSMO patch 10/02/2016 Appointment: Ila Kennedy WPtel: [phone] [place] (30 min) Complex 10/02/2016 Patient Education: Patient Medication Summary Completed 10/02/2016 Appointment: [facility]el[facility] [phone] [facility] [place] (15 min) Moderate 09/23/2016 Appointment: Araceli Silva WPtel: [facility]3 [place] [address] [place] (15 min) Moderate 09/17/2016 Visit Plan: Sacroiliitis - back exercises discussed with the patient, pt to continue with anti-inflammatories. Pt is to call if the symptoms do not improve or if they worsen. Kenalog injection today in the office. 09/12/2016 Appointment: Ila Kennedy WPtel: [facility] [place] [phone] [place] (15 min) Moderate 09/12/2016 Patient Education: Patient Medication Summary Completed 09/12/2016 Visit Plan: Hemarthrosis - drain right shoulder. Injection of kenalog 1mL - 40mg - Vaccibody - lot #[id number] , expires oct 2017 Chronic Pain Syndrome [...] over-medication. 09/08/2016 Appointment: Araceli Silva WPtel: [email or web address] (15 min) Moderate 09/08/2016 Patient Education: Patient [...] level 08/26/2016 Appointment: Araceli Silva WPtel: [facility]1 [facility] [place] (15 min) Moderate 08/26/2016 Patient [...] Summary Completed 08/18/2016 Appointment: Araceli Silva WPtel: [phone] [facility]66[facility] (15 min) Moderate 08/13/2016 Appointment: Araceli Silva WPtel: [facility]8 [facility]66[facility] (15 min) Moderate 08/06/2016 Visit Plan: [...] the daytime. 07/30/2016 Appointment: Araceli Silva WPtel: [email or web address] (15 min) Moderate 07/30/2016 Patient Education: Patient Medication Summary Completed 07/30/2016 Visit Plan: Left shoulder pain - improving - pt is to notify clinic if symptoms do not improve, if they worsen, or with any questions or concerns. Nocturia - will give samples, pt is to notify clinic if symptoms do not improve. 07/14/2016 Appointment: Maricel Gee WPtel: [phone] [facility] (30 min) Complex 07/14/2016 Patient Education: [...] any dyspnea. 07/04/2016 Appointment: Maricel Gee WPtel: [facility] (30 min) Complex 07/04/2016 Patient Education: Patient [...] medication. 06/26/2016 Appointment: Araceli Silva WPtel: [facility]5 [facility] (15 min) Moderate 06/26/2016 Patient Education: [...] of over-medication. 05/28/2016 Appointment: [facility]el[facility] [phone] [facility] [place] (15 min) Moderate 05/28/2016 Patient Education: Patient Medication Summary Completed 05/28/2016 Patient Education: Hypertension Completed 05/28/2016 Appointment: [facility]Ptel: [phone] [facility] [place] (15 min) Moderate 05/12/2016 Appointment: Araceli Silva WPtel: [address] [place], [place] [phone] [place] (15 min) Moderate 04/15/2016 Appointment: Araceli Silva WPtel: [address] [place], [place] [email or web address] (30 min) Complex 03/25/2016 Visit Plan: Hypertension [...] the premarin. 03/18/2016 Appointment: Araceli Silva WPtel: [address] [place], [place] [email or web address] (30 min) Complex 03/18/2016 Patient Education: Patient Medication Summary Completed 03/18/2016 Appointment: Araceli Silva WPtel: [address] [place], [place] [email or web address] (15 min) Moderate 02/19/2016 Visit Plan: Hypertension [...] of over-medication. 01/29/2016 Appointment: Araceli Silva WPtel: [address] [place], [place] [email or web address] (15 min) Moderate 01/29/2016 Patient Education: Patient Medication Summary Completed 01/29/2016 Visit Plan: Discussed MRI of the neck - pt is interested in doing this - however, not prior to changing her medication first to see if this helps her pain 01/01/2016 Appointment: Araceli Silva WPtel: [facility]4 [facility] [place] (15 min) Moderate 01/01/2016 Patient Education: Patient Medication Summary Completed 01/01/2016 Patient Education: Hypertension Completed 01/01/2016 Appointment: Araceli Silva WPtel: [facility]5 [facility] (15 min) Moderate 12/03/2015 Visit Plan: [...] nonhealing. 11/01/2015 Appointment: Ila Kennedy WPtel: [facility]5 [phone] [place] (15 min) Moderate 11/01/2015 Patient Education: Patient Medication Summary Completed 11/01/2015 Visit Plan: Chronic Pain Syndrome - pt has chronic pain - has been maintained on current medications, has not sought out other medications , only uses PRN pain medications as directed, and understands the consequences of over-medication. Muscle spasms - recommended muscle rub. 09/04/2015 Appointment: Araceli Silva WPtel: [address] [place], [place] [email or web address] (15 min) Moderate 09/04/2015 Patient Education: Patient Medication Summary Completed 09/04/2015 Visit Plan: Ecchymosis/hematoma - improving - discussed natural progression of hematomas - watchful waiting. 2015 Appointment: Araceli Silva WPtel: [address]5 [facility] [[email or web address] (15 min) Moderate 2015 Patient Education: Patient Medication Summary Completed 2015 Visit Plan: Cellulitis - continue with oral antibiotics as previously directed, return to clinic as previously directed, call for acute change in symptoms, worsening redness, warmth, discharge. 07/18/2015 Appointment: Ila Kennedy WPtel: [facility]7 [phone] (30 min) Complex 07/18/2015 Patient Education: Patient [...] center. 07/02/2015 Appointment: Araceli Silva WPtel: [phone] [facility] (15 min) Moderate 07/02/2015 Patient Education: [...] removal process. 04/09/2015 Appointment: Araceli Silva WPtel: [address] [place] [address] (15 min) Moderate 04/09/2015 Patient Education: Patient [...] supplementation. 02/08/2015 Appointment: [phone] (15 min) Moderate 02/08/2015 Patient Education: [...] the evening. 12/11/2014 Appointment: [facility]Ptel[facility] (15 min) Moderate 12/11/2014 Patient Education: Patient [...] - improved. 11/09/2014 Appointment: Araceli Silva WPtel: [address] [place], [place] [phone] (15 min) Moderate 11/09/2014 Patient Education: Patient Medication Summary Completed 11/09/2014 Patient Education: Hypertension Completed 11/09/2014 Visit Plan: Leg pain/cellulitis of leg - start on the doxycycline twice daily - take this x 2 weeks, if the symptoms in your leg/ thigh are not completely resolved, there is a refill that is available. start on a probiotic one pill daily (Dexmo or [employer]) this will help prevent the development of a bad type of diarrhea that can occur when taking antibiotics. Ulcer of toe - improving. 10/23/2014 Appointment: Araceli Silva WPtel: [address] [place], [place] [phone] (15 min) Moderate 10/23/2014 Patient Education: Patient Medication Summary Completed 10/23/2014 Visit Plan: Ulcer - keep lesion covered, antibiotic ointment to be used, monitor - call if redness increases or starts streaking up the foot. 10/16/2014 Appointment: Araceli Silva WPtel: [address] [place], [place] [email or web address] (15 min) Moderate 10/16/2014 Patient Education: Patient [...] peripheral edema. 09/14/2014 Appointment: [facility]el[phone] Follow up 09/14/2014 Patient Education: Patient [...] over- medication. 07/12/2014 Appointment: [facility]Ptel: [phone] [facility] [place] ([place]) New Patient 07/12/2014 Patient [...] Injection of kenalog 1mL - 40mg - Vaccibody - lot #[id number] , expires oct 2017 Chronic Pain Syndrome [...] start on a probiotic one pill daily (Dexmo or [employer]) this will help prevent the development of a bad type of diarrhea that can occur when taking antibiotics. . Leg pain/cellulitis of leg - start on the doxycycline twice daily - take this x 2 weeks, if the symptoms in your leg/thigh are not completely resolved, there is a refill that is available. start on a probiotic one pill daily (Dexmo or [employer]) this will help prevent the development [...] hands/fingers. We will contact [employer] in [place] for paperwork regarding the scooter. . Hypertension [...] to continue with use of compression sleeves. [id number] sep 2018 bristol 2ml kenalog . Edema/Lymphedema [...] directed, and understands the consequences of over-medication. Udtch-odkkygdyjn-fklohyan with lasix/metolazone -if swelling/weight increase, okay to [...] office. two old goats muscle rub from [place] and home. . Chronic Pain Syndrome - [...]
--- OUTSIDE RECORDS SUMMARY | 2018-06-03 17:52 | XMS REPORT | CCD ---
Author Author [facility] Organization [facility] Address [address] [place] [address] Phone Care Team Providers Care Breast Surgeon Name Role Phone PP Unavailable CCM Unavailable Summary Purpose Interface Exchange Insurance Providers Payer name Policy type / Coverage type Covered democrat ID Effective Begin Date Effective End Date [place] [employer] Medicare Part B [id number] 2017 Unknown AETNA Medicare Part B [id number] Unknown Family history Father Diagnosis Age At [...] Unknown Retired 07/12/[address]: 6512074 Quit over 10 years ago 1967 07/12/2014 [...] ICD-9: 466.0 ICD-10: J20.9 Active 02/12/2018 Unknown Cough ICD-9: 786.2 ICD-10: [...] unspecified ICD-9: 466.0 ICD-10: J20.9 02/12/2018 Active Cough ICD-9: 786.2 ICD-10: R05 [...] Fill Instructions cefdinir 300 mg capsule RxNorm: 920339 1 Capsule(s) PO BID 02/24/2018 Active albuterol sulfate 2.5 mg/3 mL (0.083 %) solution for nebulization RxNorm: 194419 3 Milliliter(s) INH Q4 PRN 02/18/2018 No Stop Date Active cefdinir 300 mg capsule RxNorm: 368552 1 Capsule(s) PO BID 02/17/2018 Inactive Flonase Allergy Relief 50 mcg/actuation nasal spray, suspension RxNorm: 0490835 2 [place] NASAL daily 02/12/20182017 Active Zithromax Z-Humberto 250 mg tablet RxNorm: 235466 1 Tablet(s) PO UD 02/12/2018 02/16/2018 Inactive Lomotil 2.5 mg-0.025 mg tablet RxNorm: 7926451 1 Tablet(s) PO BID PRN 02/09/2018 No Stop Date Active fentanyl 25 mcg/hr transdermal patch RxNorm: 068820 1 Patch TD Q72H use with 100mcg patch for a total of 125mcg daily 02/09/2018 03/10/2018 Active oxycodone 30 mg tablet RxNorm: 3722238 1/2 Tablet(s) PO Q6 03/14/2018 Active metolazone 10 mg tablet RxNorm: 123610 1 Tablet(s) PO QAM as needed uncontrolled edema 01/14/2018 03/14/2018 Active fentanyl 100 mcg/hr transdermal patch RxNorm: 339634 1 Patch TD Q72H use with 25mcg/hr patch 01/14/2018 02/12/2018 Inactive fentanyl 25 mcg/hr transdermal patch RxNorm: 692917 1 Patch TD Q72H use with 100mcg patch for a total of 125mcg daily 01/14/2018 02/08/2018 Inactive metolazone 10 mg tablet RxNorm: 406002 1 Tablet(s) PO every other day as needed uncontrolled edema 01/07/2018 01/13/2018 Inactive metolazone 10 mg tablet RxNorm: 237744 1 Tablet(s) PO every other day as needed uncontrolled edema 01/07/2018 01/06/2018 Inactive Cipro 500 mg tablet RxNorm: 057056 1 Tablet(s) PO BID 201701/05/2018 Inactive Cipro 500 mg tablet RxNorm: 568711 1 Tablet(s) PO BID 201701/15/2018 Inactive Cardizem CD 360 mg capsule,extended release RxNorm: 230430 1 Capsule(s) PO daily 01/05/2018 05/04/2018 Active potassium chloride ER 10 mEq tablet,extended release(part/ cryst) RxNorm: 6056288 2 Capsule(s) PO TID when taking lasix 01/05/2018 05/04/2018 Active potassium chloride ER 10 mEq capsule,extended release RxNorm: 409782 Capsule(s) TAKE 1 CAPSULE BY MOUTH TWICE DAILY WHEN TAKING LASIX (FUROSEMIDE) 11/27/2017 No Stop Date Active potassium chloride ER 10 mEq capsule,extended release RxNorm: 847143 Capsule(s) TAKE 1 CAPSULE BY MOUTH TWICE DAILY WHEN TAKING LASIX (FUROSEMIDE) 11/27/2017 11/26/2017 Inactive fentanyl 25 mcg/hr transdermal patch RxNorm: 385737 1 Patch TD Q72H use with 100mcg patch for a total of 125mcg daily 11/27/2017 12/26/2017 Inactive bumetanide 0.5 mg tablet RxNorm: 027789 1 Tablet(s) PO daily 12/23/2017 Inactive in the afternoon x 3 days then as needed per Dr Silva fentanyl 100 mcg/hr transdermal patch RxNorm: 855678 1 Patch TD Q72H use with 25mcg/hr patch 11/27/2017 12/26/2017 Inactive Lasix 20 mg tablet RxNorm: 115396 TAKE 1 TABLET BY MOUTH TWICE DAILY 10/29/2017 No Stop Date Active oxycodone 30 mg tablet RxNorm: 9089603 1/2 Tablet(s) PO Q6 12/27/2017 Inactive fentanyl 100 mcg/hr transdermal patch RxNorm: 454844 1 Patch TD Q72H use with 25mcg/hr patch 10/29/2017 11/26/2017 Inactive fentanyl 25 mcg/hr transdermal patch RxNorm: 558776 1 Patch TD Q72H use with 100mcg patch for a total of 125mcg daily 10/29/2017 11/26/2017 Inactive pantoprazole 40 mg tablet,delayed release RxNorm: 271381 Tablet(s) Take 1 tablet by mouth daily 10/21/2017 04/18/2018 Active - Ref: [id number] potassium chloride ER 10 mEq capsule,extended release RxNorm: 746900 TAKE 1 CAPSULE BY MOUTH TWICE DAILY WHEN TAKING LASIX (FUROSEMIDE) 10/09/2017 11/26/2017 Inactive fentanyl 25 mcg/hr transdermal patch RxNorm: 132563 1 Patch TD Q72H use with 100mcg patch for a total of 125mcg daily 10/01/2017 10/28/2017 Inactive fentanyl 100 mcg/hr transdermal patch RxNorm: 913694 1 Patch TD Q72H use with 25mcg/hr patch 10/01/2017 10/28/2017 Inactive potassium chloride ER 10 mEq tablet,extended release(part/ cryst) RxNorm: 7091608 1 Capsule(s) PO BID when taking lasix 09/22/2017 01/04/2018 Inactive fentanyl 100 mcg/hr transdermal patch RxNorm: 018574 1 Patch TD Q72H use with 25mcg/hr patch 08/31/2017 09/29/2017 Inactive Kenalog 40 mg/mL suspension for injection RxNorm: 9389835 1 Milliliter(s) Inj 08/31/2017 08/31/2017 Inactive fentanyl 25 mcg/hr transdermal patch RxNorm: 161026 1 Patch TD Q72H use with 100mcg patch for a total of 125mcg daily 08/31/2017 09/29/2017 Inactive oxycodone 30 mg tablet RxNorm: 3296230 1/2 Tablet(s) PO Q6 04/201710/28/2017 Inactive cyanocobalamin (vit B-12) 1,000 mcg/mL injection solution RxNorm: 095412 1 Milliliter(s) Inj monthly 08/21/201708/15 Active please provide her with syringe/needle for injection cyanocobalamin (vit B-12) 1,000 mcg/mL injection solution RxNorm: 284127 1 Milliliter(s) Inj monthly 08/21/201708/20 Inactive please provide her with syringe/needle for injection Kenalog 40 mg/mL suspension for injection RxNorm: 3976027 2 Milliliter(s) Inj 1mL in each shoulder 08/21/2017 08/21/2017 Inactive cyanocobalamin (vit B-12) 1,000 mcg/mL injection solution RxNorm: 311952 1 Milliliter(s) Inj monthly 08/21/201708/20 Inactive please provide her with syringe/needle for injection Kenalog 40 mg/mL suspension for injection RxNorm: 3066714 2 Milliliter(s) Inj UD 08/12/2017 08/12/2017 Inactive fentanyl 25 mcg/hr transdermal patch RxNorm: 311082 1 Patch TD Q72H use with 100mcg patch for a total of 125mcg daily 08/05/2017 08/30/2017 Inactive fentanyl 100 mcg/hr transdermal patch RxNorm: 296755 1 Patch TD Q72H use with 25mcg/hr patch 08/05/2017 08/30/2017 Inactive Kenalog 40 mg/mL suspension for injection RxNorm: 8402946 2 Milliliter(s) Inj 1mL per shoulder 08/05/2017 08/05/2017 Inactive clindamycin HCl 150 mg capsule RxNorm: 172769 1 Capsule(s) PO QID Dr Shultz prescribed 07/23/2017 07/29/2017 Inactive prednisone 5 mg tablet RxNorm: 496652 1 Tablet(s) PO daily 11/201707/03/2018 Active fentanyl 25 mcg/hr transdermal patch RxNorm: 322066 1 Patch TD Q72H use with 100mcg patch for a total of 125mcg daily 07/01/2017 07/30/2017 Inactive Lasix 20 mg tablet RxNorm: 093770 1 Tablet(s) PO BID 201710/28/2017 Inactive fentanyl 100 mcg/hr transdermal patch RxNorm: 291571 1 Patch TD Q72H use with 25mcg/hr patch 07/01/2017 07/30/2017 Inactive potassium chloride ER 10 mEq capsule,extended release RxNorm: 815769 1 Capsule(s) PO BID when taking lasix 07/01/20172017 Inactive oxycodone 30 mg tablet RxNorm: 4784560 1/2 Tablet(s) PO Q6 08/22/2017 Inactive fentanyl 100 mcg/hr transdermal patch RxNorm: 900968 1 Patch TD Q72H use with 25mcg/hr patch 05/07/2017 06/05/2017 Inactive fentanyl 25 mcg/hr transdermal patch RxNorm: 254100 1 Patch TD Q72H use with 100mcg patch for a total of 125mcg daily 05/07/2017 06/05/2017 Inactive fentanyl 100 mcg/hr transdermal patch RxNorm: 136849 1 Patch TD Q72H 04/08/2017 05/06/2017 Inactive fentanyl 25 mcg/hr transdermal patch RxNorm: 370893 1 Patch TD Q72H use with 100mcg patch for a total of 125mcg daily 04/08/2017 05/06/2017 Inactive Kenalog 40 mg/mL suspension for injection RxNorm: 4554941 1.5 Milliliter(s) Inj 04/02/2017 04/02/2017 Inactive fentanyl 100 mcg/hr transdermal patch RxNorm: 842738 1 Patch TD Q72H 03/12/2017 04/07/2017 Inactive fentanyl 25 mcg/hr transdermal patch RxNorm: 012008 1 Patch TD Q72H use with 100mcg patch for a total of 125mcg daily 03/12/2017 04/07/2017 Inactive oxycodone 30 mg tablet RxNorm: 1946712 1/2 Tablet(s) PO Q6 09/201704/07/2017 Inactive cyanocobalamin (vit B-12) 1,000 mcg/mL injection syringe RxNorm: 231030 1 Milliliter(s) Inj monthly 02/16/2017 No Stop Date Active please provide with supplys needed for injection fentanyl 100 mcg/hr transdermal patch RxNorm: 507010 1 Patch TD Q72H 02/06/2017 03/07/2017 Inactive Myrbetriq 50 mg tablet,extended release RxNorm: 9298027 1 Tablet(s) PO QPM 12/11/2016 07/22/2017 Inactive oxycodone 30 mg tablet RxNorm: 4846557 1/2 Tablet(s) PO Q6 10/201601/06/2017 Inactive naproxen 500 mg tablet RxNorm: 773547 1 Tablet(s) PO BID Take 1 tablet by mouth two times daily as needed 12/08/201607/08 Inactive - First Attempt Ref: [id number] Myrbetriq 50 mg tablet,extended release RxNorm: 6894334 1 Tablet(s) PO QPM 11/17/2016 12/10/2016 Inactive fentanyl 100 mcg/hr transdermal patch RxNorm: 762752 1 Patch TD Q72H 11/12/2016 12/11/2016 Inactive Vesicare 10 mg tablet RxNorm: 834107 1 Tablet(s) PO QPM 201611/18/2016 Inactive oxycodone 10 mg tablet RxNorm: 6247853 1-2 Tablet(s) PO Q4 PRN as needed to take between 30mg dose if needed for extra pain control 201612/07/2016 Inactive fentanyl 75 mcg/hr transdermal patch RxNorm: 528243 1 TD Q72H 10/22/2016 11/10/2016 Inactive oxycodone 10 mg tablet RxNorm: 3798420 1-2 Tablet(s) PO Q4 PRN as needed to take between 30mg dose if needed for extra pain control 201611/04/2016 Inactive Kenalog 40 mg/mL suspension for injection RxNorm: 5350947 1 Milliliter(s) Inj 10/02/2016 10/02/2016 Inactive Kenalog 40 mg/mL suspension for injection RxNorm: 1524057 1 Milliliter(s) Inj 09/12/2016 09/12/2016 Inactive cyclobenzaprine 5 mg tablet RxNorm: 001409 1 Tablet(s) PO Q8 as needed muscle spasms 09/11/2016 07/22/2017 Inactive prednisone 10 mg tablets in a dose pack RxNorm: 762603 1 Tablet(s) PO UD 09/09/2016 06/23/2017 Inactive potassium chloride ER 10 mEq capsule,extended release RxNorm: 748568 1 Capsule(s) PO BID as needed when taking lasix 08/26/2016 06/30/2017 Inactive Lasix 20 mg tablet RxNorm: 580263 1 Tablet(s) PO BID daily x 10 days then as needed edema 08/26/2016 12/23/2016 Inactive naproxen 500 mg tablet RxNorm: 240855 Take 1 tablet by mouth two times daily as needed 08/18/2016 11/15/2016 Inactive - First Attempt Ref: [id number] Lasix 20 mg tablet RxNorm: 523342 1 Tablet(s) PO QAM daily x 10 days then as needed edema 08/18/2016 08/25/2016 Inactive Vesicare 5 mg tablet RxNorm: 634812 1 Tablet(s) PO QPM 201611/04/2016 Inactive potassium chloride ER 10 mEq capsule,extended release RxNorm: 726174 1 Capsule(s) PO QAM as needed when taking lasix 08/18/2016 08/25/2016 Inactive Myrbetriq 25 mg tablet,extended release RxNorm: 4252713 1 Tablet(s) PO QHS 07/14/2016 07/29/2016 Inactive pantoprazole 40 mg tablet,delayed release RxNorm: 395092 Take 1 tablet by mouth daily 06/30/2016 12/26/2016 Inactive - Ref: [id number] Embeda 20 mg-0.8 mg capsule, extend release, oral only RxNorm: 932012 1 Capsule(s ) PO daily 06/04/2016 06/03/2016 Inactive Embeda 20 mg-0.8 mg capsule, extend release, oral only RxNorm: 644385 1 Capsule(s ) PO daily 06/04/2016 07/01/2016 Inactive oxycodone 10 mg tablet RxNorm: 7786037 1 Tablet(s) PO QID as needed to take between 30mg dose if needed for extra pain control 201606/10/2016 Inactive oxycodone 30 mg tablet RxNorm: 2486734 1 Tablet(s) PO Q6 201611/04/2016 Inactive cyanocobalamin (vit B-12) 1,000 mcg/mL injection solution RxNorm: 220032 1 Milliliter(s) Inj monthly 02/22/201602/15 Inactive she also needs syringes/ needles for this solution QS oxycodone 30 mg tablet RxNorm: 0012217 1 Tablet(s) PO Q6 201503/19/2016 Inactive oxycodone 10 mg tablet RxNorm: 8924307 1 Tablet(s) PO QID as needed to take between 30mg dose if needed for extra pain control 201503/19/2016 Inactive oxycodone 10 mg tablet RxNorm: 9277355 1 Tablet(s) PO QID as needed to take between 30mg dose if needed for extra pain control 201502/18/2016 Inactive oxycodone 30 mg tablet RxNorm: 6110242 1 Tablet(s) PO Q6 201502/18/2016 Inactive pantoprazole 40 mg tablet,delayed release RxNorm: 745588 Take 1 tablet by mouth daily 01/22/2016 06/29/2016 Inactive - First Attempt Ref: [id number] oxycodone 30 mg tablet RxNorm: 5329492 1 Tablet(s) PO Q6 201501/28/2016 Inactive oxycodone 10 mg tablet RxNorm: 0497229 1 Tablet(s) PO QID as needed take between 20mg dose if needed for extra pain control 11/07/2015 12/06/2015 Inactive oxycodone 20 mg tablet RxNorm: 2420622 1 Tablet(s) PO Q6 as needed 11/07/2015 12/31/2015 Inactive doxycycline hyclate 100 mg tablet RxNorm: 123323 1 Tablet(s) PO BID 11/01/2015 11/10/2015 Inactive potassium chloride ER 10 mEq capsule,extended release RxNorm: 646490 1 Capsule(s) PO TIW as needed when taking lasix 09/04/2015 08/17/2016 Inactive Voltaren 1 % topical gel RxNorm: 325464 2 Gram(s) TOP QID 08/2909/03/2015 Inactive pa approved Voltaren 1 % topical gel RxNorm: 350455 2 Gram(s) TOP QID 08/0808/29/2015 Inactive naproxen 500 mg tablet RxNorm: 862491 1 Tablet(s) PO BID 201508/17/2016 Inactive naproxen 500 mg tablet RxNorm: 525425 1 Tablet(s) PO BID 201508/08/2015 Inactive doxycycline hyclate 100 mg tablet RxNorm: 156233 1 Tablet(s) PO BID do not take calcium/vitamin d while on antibiotic 07/18/2015 07/31/2015 Inactive Vitamin D2 50,000 unit capsule RxNorm: 464925 1 Capsule(s) PO QW 07/02/2015 11/18/2015 Inactive Premarin 0.3 mg tablet RxNorm: 979380 1 Tablet(s) PO daily 12/201505/09/2015 Inactive Premarin 0.3 mg tablet RxNorm: 397251 1 Tablet(s) PO daily 12/201503/17/2016 Inactive simvastatin 40 mg tablet RxNorm: 745113 1 Tablet(s) PO daily 03/17/2016 Inactive spironolactone 25 mg tablet RxNorm: 934311 TAKE ONE TABLET BY MOUTH DAILY 05/07/2015 05/27/2016 Inactive potassium chloride ER 10 mEq capsule,extended release RxNorm: 823486 1 Capsule(s) PO TIW as needed when taking lasix 04/17/2015 09/03/2015 Inactive alendronate 70 mg tablet RxNorm: 173701 1 Tablet(s) PO weekly QW 04/17/2015 07/01/2015 Inactive Vitamin D2 50,000 unit capsule RxNorm: 950412 1 Capsule(s) PO QW 03/30/2015 06/27/2015 Inactive Vitamin D2 50,000 unit capsule RxNorm: 281137 1 Capsule(s) PO QW 03/21/2015 03/29/2015 Inactive cyanocobalamin (vit B-12) 1,000 mcg/mL injection solution RxNorm: 045369 1 Milliliter(s) Inj monthly 03/19/201502/20 Inactive cyanocobalamin (vit B-12) 1,000 mcg/mL injection solution RxNorm: 487488 1 Milliliter(s) Inj monthly 03/16/201503/18 Inactive cyanocobalamin (vit B-12) 1,000 mcg/mL injection solution RxNorm: 749182 1 Milliliter(s) Inj monthly 03/16/201503/15 Inactive pantoprazole 40 mg tablet,delayed release RxNorm: 091807 1 Tablet(s) PO daily 03/05/2015 01/21/2016 Inactive Lasix 20 mg tablet RxNorm: 390652 1 Tablet(s) PO TIW as needed edema 02/08/2015 02/02/2016 Inactive oxycodone 10 mg tablet RxNorm: 6645659 1 Tablet(s) PO QID as needed take between 20mg dose if needed for extra pain control 11/09/2014 12/08/2014 Inactive oxycodone 20 mg tablet RxNorm: 9105138 1 Tablet(s) PO Q6 as needed 10/25/2014 11/06/2015 Inactive doxycycline hyclate 100 mg tablet RxNorm: 991326 1 Tablet(s) PO BID 10/23/2014 11/19/2014 Inactive Cipro 500 mg tablet RxNorm: 587692 1 Tablet(s) PO BID 201410/16/2014 Inactive Cipro 500 mg tablet RxNorm: 542780 1 Tablet(s) PO BID 201410/09/2014 Inactive oxycodone 20 mg tablet RxNorm: 2810270 1 Tablet(s) PO Q6 as needed 09/25/2014 10/24/2014 Inactive Lasix 20 mg tablet RxNorm: 578848 1 Tablet(s) PO TIW as needed edema 09/14/2014 01/11/2015 Inactive potassium chloride ER 10 mEq capsule,extended release RxNorm: 757616 1 Capsule(s) PO TIW as needed when taking lasix 09/14/2014 01/11/2015 Inactive doxycycline hyclate 100 mg tablet RxNorm: 573336 1 Tablet(s) PO BID 09/05/2014 09/14/2014 Inactive doxycycline hyclate 100 mg tablet RxNorm: 709869 1 Tablet(s) PO BID 09/05/2014 09/04/2014 Inactive oxycodone 20 mg tablet RxNorm: 8864189 1 Tablet(s) PO Q6 as needed 08/29/2014 09/24/2014 Inactive spironolactone 25 mg tablet RxNorm: 100795 1 Tablet(s) PO daily 08/11/2014 03/08/2015 Inactive oxycodone 20 mg tablet RxNorm: 6474561 1 Tablet(s) PO Q6 as needed 08/02/2014 08/28/2014 Inactive Vitamin D3 2,000 unit tablet RxNorm: 482139 1 Tablet(s) PO daily 07/14/2014 No Stop Date Active Vitamin D2 50,000 unit capsule RxNorm: 020531 1 Capsule(s) PO QW 07/14/2014 10/11/2014 Inactive Vitamin D2 50,000 unit capsule RxNorm: 514091 1 Capsule(s) PO QW 07/14/2014 07/13/2014 Inactive Prolia 60 mg/mL subcutaneous syringe RxNorm: 338937 Milliliter(s) SQ EVERY 6 MONTHS No Start Date Active Carafate 1 gram tablet RxNorm: 169484 1 Tablet(s) PO BID No Start Date Active Miralax oral RxNorm: 317300 oral No Start Date Active Stool Softener oral RxNorm: 84802 oral No Start Date Active Calcium + Vitamin D oral RxNorm: 4018 oral No Start Date Active naproxen 500 mg tablet RxNorm: 447510 1 Tablet(s) PO BID No Start Date 08/05/2015 Inactive albuterol sulfate 2.5 mg/3 mL (0.083 %) solution for nebulization RxNorm: 602245 3 Milliliter(s) INH Q4 PRN No Start Date 02/17/2018 Inactive oxycodone 20 mg tablet RxNorm: 3602599 1 Tablet(s) PO Q6 as needed No Start Date 08/01/2014 Inactive aspirin 81 mg tablet RxNorm: 949374 1 Tablet(s) PO daily No Start Date 07/22/2017 Inactive simvastatin 40 mg tablet RxNorm: 693866 1 Tablet(s) PO daily No Start Date 05/09/2015 Inactive cyanocobalamin (vit B-12) 1,000 mcg/mL injection syringe RxNorm: 652059 1 Inj monthly No Start Date 02/15/2017 Inactive Reglan 10 mg tablet RxNorm: 628808 1 Tablet(s) PO as needed No Start Date 07/29/2016 Inactive alendronate 70 mg tablet RxNorm: 086578 1 Tablet(s) PO weekly No Start Date 04/16/2015 Inactive Protonix 40 mg tablet,delayed release RxNorm: 135941 1 Tablet(s) PO daily No Start Date 03/04/2015 Inactive cyclobenzaprine 5 mg tablet RxNorm: 281431 1 Tablet(s) PO Q8 as needed muscle spasms No Start Date 09/10/2016 Inactive Vitamin D3 1,000 unit capsule RxNorm: 836596 1 Capsule(s) PO daily No Start Date 07/13/2014 Inactive Cardizem CD 360 mg capsule,extended release RxNorm: 441929 1 Capsule(s) PO daily No Start Date 01/04/2018 Inactive prednisone 10 mg tablets in a dose pack RxNorm: 299125 1 Tablet(s) PO UD No Start Date 09/08/2016 Inactive Medication Administered Medication Codes Instructions Start Date Status Kenalog 40 mg/mL suspension for injection RxNorm: 1974896 1Milliliter 08/31/2017 No longer Active Kenalog 40 mg/mL suspension for injection RxNorm: 1818686 2Milliliter 08/21/2017 No longer Active Kenalog 40 mg/mL suspension for injection RxNorm: 7020706 2MilliliterUD 08/12/2017 No longer Active Kenalog 40 mg/mL suspension for injection RxNorm: 0850170 2Milliliter 08/05/2017 No longer Active Kenalog 40 mg/mL suspension for injection RxNorm: 9269494 1.5Milliliter 04/02/2017 No longer Active Kenalog 40 mg/mL suspension for injection RxNorm: 9351797 1Milliliter 10/02/2016 No longer Active Kenalog 40 mg/mL suspension for injection RxNorm: 4666662 1Milliliter 09/12/2016 No longer Active Immunizations Vaccine Codes Date Status Influenza CVX: 141 12/03/2017 completed Influenza CVX: 141 12/08/2016 completed Influenza CVX: 141 11/19/2015 completed Influenza CVX: 141 01/10/2015 completed Pneumococcal (Adult) CVX: 133 12/11/2014 completed Pneumococcal (Adult) CVX: 133 12/11/2014 completed Assessments Condition Codes Effective Dates Acute bronchitis, unspecified ICD-10: J20.9 ICD-9: 466.0 02/12/2018 Cough ICD-10: R05 ICD-9: 786.2 02/12/2018 Generalized edema ICD-10: R60.1 ICD-9: 782.3 02/09/2018 Chronic pain syndrome ICD-10: G89.4 ICD-9: 338.4 02/09/2018 Diarrhea, unspecified ICD-10: R19.7 ICD-9: 787.91 [...] left shoulder ICD-10: M06.012 ICD-9: 714.0 11/10/2017 Localized edema ICD-10: R60.0 ICD-9: 782.3 11/10/2017 Primary osteoarthritis, 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 ICD-9: 715.91 11/10/2017 Pain in right shoulder ICD-10: M25.511 ICD-9: 719.41 11/10/2017 Anemia, unspecified ICD-10: D64.9 ICD-9: 285.9 [...] deficiency, unspecified ICD-10: E55.9 ICD-9: 268.9 08/26/2016 Torticollis ICD-10: M43.6 ICD-9: 723.5 07/30/2016 Spinal stenosis, 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 ICD-9: 723.0 07/30/2016 Nocturia ICD-10: R35.1 ICD-9: 788.43 07/30/2016 Myalgia ICD-10: M79.1 ICD-9: 729.1 03/18/2016 [...] ICD-9: 401.9 11/09 EDEMA ICD-9: 782.3 11/09/2014 Leg pain ICD-9: 729.5 10/23/2014 Ulcer of toe ICD-9: 707.15 10/23/2014 Chronic pain ICD-9: 338.29 07/12/2014 VITAMIN D DEFICIENCY ICD-9: 268.9 2014 Esophageal reflux ICD-9: 530.81 2014 HYPERLIPIDEMIA ICD-9: 272.4 07/12/2014 Osteoporosis ICD-9: 733.00 07/12/2014 Reason For Visit [...] Tibc Ord40 Fe-%Sat 21.7 % 10/22/2017 Prealbumin 072284 PREALBUMIN 33 mg/dL 10/21/2017 Iron Ord72 Iron 75 ug/dl 10/20/2017 Cbc With Differential Ord2 WBC 6.24 [...] 35.4 pg 10/20/2017 Cbc With Differential Ord2 [place]% 9.9 % 10/20/2017 Cbc With Differential Ord2 MCHC 32.8 pg 10/20/2017 Cbc With Differential Ord2 Eos% 0.0 % 10/20/2017 Cbc With Differential Ord2 Baso% 0.2 % 10/20/2017 Cbc With Differential Ord2 PLT 262 K/ul 10/20/2017 Cbc With Differential Ord2 Neut ABS# 4.46 K/ul 10/20/2017 Cbc With Differential Ord2 RDW 13.4 % 10/20/2017 Cbc With Differential Ord2 Lymph ABS# 1.15 K/ul 10/20/2017 Cbc With Differential Ord2 [place] ABS# 0.6 K/ul 10/20/2017 Cbc With Differential Ord2 Eos ABS# 0.0 K/ul 10/20/2017 Cbc With Differential Ord2 Baso ABS# 0.0 K/ul 10/20/2017 Tsh Ord6 TSH (3rd IS) 2.69 uIU/mL 10/20/2017 Comp Metabolic Oco992 NA 134 mEq/L 10/20/2017 Comp Metabolic Erk464 K 3.7 mEq/L 10/20/2017 Comp Metabolic Tzb615 CL 93 mEq/L 10/20/2017 Comp Metabolic Aqi732 CO2 29.0 mEq/L 10/20/2017 Comp Metabolic Skz811 ANION GAP 16 10/20/2017 Comp Metabolic Xpc838 GLUCOSE 115 mg/dL 10/20/2017 Comp Metabolic Ktq356 Creat 0.8 mg/dL 10/20/2017 Comp Metabolic Mny889 eGFR 73 ml/min/1.73m2 10/20/2017 Comp Metabolic Rim740 BUN 46 mg/dL 10/20/2017 Comp Metabolic Lah736 B/C Ratio 57.5 Ratio 10/20/2017 Comp Metabolic Dim373 CALCIUM 8.7 mg/dL 10/20/2017 Comp Metabolic Upk541 ALK PHOS 56 U/L 10/20/2017 Comp Metabolic Nex335 AST(SGOT) 19 U/L 10/20/2017 Comp Metabolic Sjg911 ALT(SGPT) 23 U/L 10/20/2017 Comp Metabolic Dzx074 BILI T 0.6 mg/dL 10/20/2017 Comp Metabolic Hod545 ALBUMIN 4.0 g/dL 10/20/2017 Comp Metabolic Mop272 TPRO 6.6 g/dL 10/20/2017 Comp Metabolic Rrm946 GLOB 2.7 g/dL 10/20/2017 Comp Metabolic Niy946 A/G Ratio 1.5 Ratio 10/20/2017 Comp Metabolic Cgg025 Osmo 281 mOsmo 10/20/2017 Luann Reflex Profile [id number] LUANN (BRYANNA) SCREEN NONE DETECTED 01/12/2017 Cbc With Differential Ord2 WBC 6.95 K/ul 01/08/2017 Cbc With Differential Ord2 RBC 3.20 M/ul 01/08/2017 Cbc With Differential Ord2 HGB 10.8 g/dl 01/08/2017 Cbc With Differential Ord2 Neut% 62.9 % 01/08/2017 Cbc With Differential Ord2 HCT 32.7 % 01/08/2017 Cbc With Differential Ord2 Lymph% 23.3 % 01/08/2017 Cbc With Differential Ord2 MCV 102.2 fl 01/08/2017 Cbc With Differential Ord2 [place]% 12.2 % 01/08/2017 Cbc With Differential Ord2 [...] 1.62 K/ul 01/08/2017 Cbc With Differential Ord2 [place] ABS# 0.9 K/ul 01/08/2017 Cbc With Differential Ord2 Eos ABS# 0.1 K/ul 01/08/2017 Cbc With Differential Ord2 Baso ABS# 0.1 K/ul 01/08/2017 Comp Metabolic Gti667 NA 129 mEq/L 01/08/2017 Comp Metabolic Bxw002 K 3.9 mEq/L 01/08/2017 Comp Metabolic Jxa027 CL 94 mEq/L 01/08/2017 Comp Metabolic Etg707 CO2 31.0 mEq/L 01/08/2017 Comp Metabolic Sop349 ANION GAP 8 01/08/2017 Comp Metabolic Ayd308 GLUCOSE 103 mg/dL 01/08/2017 Comp Metabolic Ltk523 Creat 0.9 mg/dL 01/08/2017 Comp Metabolic Zil014 eGFR 61 ml/min/1.73m2 01/08/2017 Comp Metabolic Fta674 BUN 29 mg/dL 01/08/2017 Comp Metabolic Yfc195 B/C Ratio 30.9 Ratio 01/08/2017 Comp Metabolic Qzg773 CALCIUM 8.5 mg/dL 01/08/2017 Comp Metabolic Gzr152 ALK PHOS 58 U/L 01/08/2017 Comp Metabolic Gba616 AST(SGOT) 17 U/L 01/08/2017 Comp Metabolic Ren388 ALT(SGPT) 10 U/L 01/08/2017 Comp Metabolic Zpa430 BILI T 0.4 mg/dL 01/08/2017 Comp Metabolic Nnz258 ALBUMIN 3.0 g/dL 01/08/2017 Comp Metabolic Qiz810 TPRO 5.5 g/dL 01/08/2017 Comp Metabolic Ryz781 GLOB 2.5 g/dL 01/08/2017 Comp Metabolic Swa740 A/G Ratio 1.2 Ratio 01/08/2017 Comp Metabolic Gvy173 Osmo 265 mOsmo 01/08/2017 Magnesium Ord90 Mag 2.0 mg/dL 01/08/2017 [...] 33.1 pg 11/10/2016 Cbc With Differential Ord2 [place]% 9.1 % 11/10/2016 Cbc With Differential Ord2 [...] 0.78 K/ul 11/10/2016 Cbc With Differential Ord2 [place] ABS# 0.5 K/ul 11/10/2016 Cbc With Differential [...] 19.2 % 10/07/2016 Cbc With Differential Ord2 [place]% 11.8 % 10/07/2016 Cbc With Differential Ord2 MCH 30.3 pg 10/07/2016 Cbc With Differential Ord2 MCHC 31.7 pg 10/07/2016 Cbc With Differential Ord2 Eos% 1.1 % 10/07/2016 Cbc With Differential Ord2 PLT 570 K/ul 10/07/2016 Cbc With Differential Ord2 Baso% 0.2 % 10/07/2016 Cbc With Differential Ord2 RDW 18.2 % 10/07/2016 Cbc With Differential Ord2 Neut ABS# 5.43 K/ul 10/07/2016 Cbc With Differential Ord2 Lymph ABS# 1.54 K/ul 10/07/2016 Cbc With Differential Ord2 [place] ABS# 1.0 K/ul 10/07/2016 Cbc With Differential Ord2 Eos ABS# 0.1 K/ul 10/07/2016 Cbc With Differential Ord2 Baso ABS# 0.0 K/ul 10/07/2016 Comp Metabolic Hrv243 NA 129 mEq/L 08/26/2016 Comp Metabolic Jnm072 K 3.9 mEq/L 08/26/2016 Comp Metabolic Nez407 CL 93 mEq/L 08/26/2016 Comp Metabolic Qqe023 CO2 30.0 mEq/L 08/26/2016 Comp Metabolic Aoa742 ANION GAP 10 08/26/2016 Comp Metabolic Kir119 GLUCOSE 87 mg/dL 08/26/2016 Comp Metabolic Jda141 Creat 0.6 mg/dL 08/26/2016 Comp Metabolic Mhg080 eGFR 96 ml/min/1.73m2 08/26/2016 Comp Metabolic Flg282 BUN 17 mg/dL 08/26/2016 Comp Metabolic Yxg252 B/C Ratio 27.0 Ratio 08/26/2016 Comp Metabolic Ubx336 CALCIUM 7.6 mg/dL 08/26/2016 Comp Metabolic Jpm080 ALK PHOS 72 U/L 08/26/2016 Comp Metabolic Bmw821 AST(SGOT) 20 U/L 08/26/2016 Comp Metabolic Xzx654 ALT(SGPT) 12 U/L 08/26/2016 Comp Metabolic Yco778 BILI T 0.3 mg/dL 08/26/2016 Comp Metabolic Ztt101 ALBUMIN 2.7 g/dL 08/26/2016 Comp Metabolic Lqo792 TPRO 5.3 g/dL 08/26/2016 Comp Metabolic Kup827 GLOB 2.6 g/dL 08/26/2016 Comp Metabolic Isf021 A/G Ratio 1.1 Ratio 08/26/2016 Comp Metabolic Slr309 Osmo 260 mOsmo 08/26/2016 Cbc With Differential [...] 28.3 pg 08/26/2016 Cbc With Differential Ord2 [place]% 9.6 % 08/26/2016 Cbc With Differential Ord2 Eos% 0.5 % 08/26/2016 Cbc With Differential Ord2 MCHC 31.9 pg 08/26/2016 Cbc With Differential Ord2 Baso% 0.4 % 08/26/2016 Cbc With Differential Ord2 PLT 442 K/ul 08/26/2016 Cbc With Differential Ord2 RDW 14.1 % 08/26/2016 Cbc With Differential Ord2 Neut ABS# 6.99 K/ul 08/26/2016 Cbc With Differential Ord2 Lymph ABS# 1.83 K/ul 08/26/2016 Cbc With Differential Ord2 [place] ABS# 1.0 K/ul 08/26/2016 Cbc With Differential Ord2 Eos ABS# 0.1 K/ul 08/26/2016 Cbc With Differential Ord2 Baso ABS# 0.0 K/ul 08/26/2016 Magnesium Ord90 Mag 1.9 mg/dL 08/26/2016 Vitamin D 25 Oh [id number] VITAMIN D, 25 HYDROXY 34.59 ng/mL Tibc Ord40 Iron 13 ug/dl 08/26/2016 Tibc Ord40 UIBC 283 ug/dL 08/26/2016 Tibc Ord40 TIBC 296 ug/dL 08/26/2016 Tibc Ord40 Fe-%Sat 4.4 % 08/26/2016 Ferritin Ord22 FERRITIN 28.8 ng/mL 08/26/2016 Sed Rate Ord21 ESR 20 mm/hr 11/19/2015 Cbc With Differential Ord2 WBC 6.50 K/ul [...] 32.4 pg 08/22/2015 Cbc With Differential Ord2 [place]% 10.3 % 08/22/2015 Cbc With Differential Ord2 [...] 1.39 K/ul 08/22/2015 Cbc With Differential Ord2 [place] ABS# 0.7 K/ul 08/22/2015 Cbc With Differential Ord2 Eos ABS# 0.1 K/ul 08/22/2015 Cbc With Differential Ord2 Baso ABS# 0.0 K/ul 08/22/2015 Lipid Ord30 CHOL 163 mg/dL 08/22/2015 Lipid Ord30 HDL 92.0 mg/dl 08/22/2015 Lipid Ord30 TRIG 61 mg/dL 08/22/2015 Lipid Ord30 LDL 59 mg/dL 08/22/2015 Lipid Ord30 C/HDL 1.8 Ratio 08/22/2015 Vitamin D 25 Oh [id number] VITAMIN D, 25 HYDROXY 55.10 ng/mL Comp Metabolic Lcw115 NA 131 mEq/L 08/22/2015 Comp Metabolic Niz833 K 4.2 mEq/L 08/22/2015 Comp Metabolic Erd275 CL 98 mEq/L 08/22/2015 Comp Metabolic Ign906 CO2 27.0 mEq/L 08/22/2015 Comp Metabolic Udu844 ANION GAP 10 08/22/2015 Comp Metabolic Dpm428 GLUCOSE 80 mg/dL 08/22/2015 Comp Metabolic Apq847 Creat 0.5 mg/dL 08/22/2015 Comp Metabolic Rbk160 eGFR 120 ml/min/1.73m2 08/22/2015 Comp Metabolic Bzv748 BUN 13 mg/dL 08/22/2015 Comp Metabolic Fmf715 B/C Ratio 25.0 Ratio 08/22/2015 Comp Metabolic Huj785 CALCIUM 8.2 mg/dL 08/22/2015 Comp Metabolic Qle443 ALK PHOS 49 U/L 08/22/2015 Comp Metabolic Ebz764 AST(SGOT) 18 U/L 08/22/2015 Comp Metabolic Ntk144 ALT(SGPT) 11 U/L 08/22/2015 Comp Metabolic Mgu818 BILI T 0.5 mg/dL 08/22/2015 Comp Metabolic Dax636 ALBUMIN 3.5 g/dL 08/22/2015 Comp Metabolic Yaw536 TPRO 6.2 g/dL 08/22/2015 Comp Metabolic Amq910 GLOB 2.7 g/dL 08/22/2015 Comp Metabolic Awu705 A/G Ratio 1.3 Ratio 08/22/2015 Comp Metabolic Iha434 Osmo 262 mOsmo 08/22/2015 Tsh Ord6 hTSH II 2.19 uIU/mL 08/22/2015 Tibc Ord40 Iron 22 ug/dl 04/10/2015 Tibc Ord40 UIBC 379 ug/dL 04/10/2015 Tibc Ord40 TIBC 401 ug/dL 04/10/2015 Tibc Ord40 Fe-%Sat 5.5 % 04/10/2015 Iron Ord72 Iron 22 ug/dl 04/09/2015 Lipid Ord30 CHOL 159 mg/dL 03/16/2015 Lipid Ord30 HDL 105.0 mg/dl 03/16/2015 Lipid Ord30 TRIG 66 mg/dL 03/16/2015 Lipid Ord30 LDL 41 mg/dL 03/16/2015 Lipid Ord30 C/HDL 1.5 Ratio 03/16/2015 Comp Metabolic Ued903 NA 131 mEq/L 03/16/2015 Comp Metabolic Nvg350 K 4.1 mEq/L 03/16/2015 Comp Metabolic Emx438 CL 94 mEq/L 03/16/2015 Comp Metabolic Ujc702 CO2 28.0 mEq/L 03/16/2015 Comp Metabolic Zwv285 ANION GAP 13 03/16/2015 Comp Metabolic Hmw088 GLUCOSE 96 mg/dL 03/16/2015 Comp Metabolic Cgk038 Creat 0.7 mg/dL 03/16/2015 Comp Metabolic Qsh459 eGFR 80 ml/min/1.73m2 03/16/2015 Comp Metabolic One044 BUN 16 mg/dL 03/16/2015 Comp Metabolic Inm624 B/C Ratio 21.6 Ratio 03/16/2015 Comp Metabolic Jdc617 CALCIUM 8.9 mg/dL 03/16/2015 Comp Metabolic Xpt485 ALK PHOS 44 U/L 03/16/2015 Comp Metabolic Mxx723 AST(SGOT) 22 U/L 03/16/2015 Comp Metabolic Eea089 ALT(SGPT) 14 U/L 03/16/2015 Comp Metabolic Loz588 BILI T 0.5 mg/dL 03/16/2015 Comp Metabolic Nar757 ALBUMIN 3.4 g/dL 03/16/2015 Comp Metabolic Lar116 TPRO 6.0 g/dL 03/16/2015 Comp Metabolic Skd504 GLOB 2.6 g/dL 03/16/2015 Comp Metabolic Aoa676 A/G Ratio 1.3 Ratio 03/16/2015 Comp Metabolic Puv850 Osmo 264 mOsmo 03/16/2015 Cbc With Differential Ord2 WBC 7.41 K/ul 03/16/2015 Cbc With Differential Ord2 RBC 3.45 M/ul 03/16/2015 Cbc With Differential Ord2 HGB 9.7 g/dl 03/16/2015 Cbc With Differential Ord2 HCT 30.4 % 03/16/2015 Cbc With Differential Ord2 Neut% 55.2 % 03/16/2015 Cbc With Differential Ord2 MCV 88.1 fl 03/16/2015 Cbc With Differential Ord2 Lymph% 32.0 % 03/16/2015 Cbc With Differential Ord2 [place]% 11.2 % 03/16/2015 Cbc With Differential Ord2 MCH 28.1 pg 03/16/2015 Cbc With Differential Ord2 MCHC 31.9 pg 03/16/2015 Cbc With Differential Ord2 Eos% 1.2 % 03/16/2015 Cbc With Differential Ord2 PLT 346 K/ul 03/16/2015 Cbc With Differential Ord2 Baso% 0.4 % 03/16/2015 Cbc With Differential Ord2 Neut ABS# 4.09 K/ul 03/16/2015 Cbc With Differential Ord2 RDW 13.2 % 03/16/2015 Cbc With Differential Ord2 Lymph ABS# 2.37 K/ul 03/16/2015 Cbc With Differential Ord2 [place] ABS# 0.8 K/ul 03/16/2015 Cbc With Differential Ord2 Eos ABS# 0.1 K/ul 03/16/2015 Cbc With Differential Ord2 Baso ABS# 0.0 K/ul 03/16/2015 Cbc With Differential Ord2 New Analyzer Notice Please note new ref ranges starting 03-14-2015 due to implemntation of new five part differential hematolgy analyzer. 03/16/2015 Tsh Ord6 hTSH II 3.50 uIU/mL 03/16/2015 Vitamin D 25 Oh Cip0499 VITAMIN D, 25 HYDROXY 28.94 ng/mL Comp Metabolic Mkh135 NA 129 mEq/L 11/09/2014 Comp Metabolic Zzq286 K 4.2 mEq/L 11/09/2014 Comp Metabolic Ypr766 CL 96 mEq/L 11/09/2014 Comp Metabolic Amk286 CO2 27.0 mEq/L 11/09/2014 Comp Metabolic Hre223 ANION GAP 10 11/09/2014 Comp Metabolic Gnw891 GLUCOSE 144 mg/dL 11/09/2014 Comp Metabolic Rnm817 Creat 0.8 mg/dL 11/09/2014 Comp Metabolic Zmh375 eGFR 73 ml/min/1.73m2 11/09/2014 Comp Metabolic Ato061 BUN 22 mg/dL 11/09/2014 Comp Metabolic Xrc172 B/C Ratio 27.5 Ratio 11/09/2014 Comp Metabolic Rnk078 CALCIUM 8.6 mg/dL 11/09/2014 Comp Metabolic Xxm260 ALK PHOS 55 U/L 11/09/2014 Comp Metabolic Khq566 AST(SGOT) 27 U/L 11/09/2014 Comp Metabolic Avi753 ALT(SGPT) 18 U/L 11/09/2014 Comp Metabolic Phb082 BILI T 0.5 mg/dL 11/09/2014 Comp Metabolic Iok148 ALBUMIN 3.0 g/dL 11/09/2014 Comp Metabolic Qrr573 TPRO 5.4 g/dL 11/09/2014 Comp Metabolic Dzt997 GLOB 2.4 g/dL 11/09/2014 Comp Metabolic Nnk885 A/G Ratio 1.3 Ratio 11/09/2014 Comp Metabolic Vsz639 Osmo 265 mOsmo 11/09/2014 Magnesium Ord90 Mag [...] Procedures Procedure Codes Date DRAIN/INJECT JOINT/BURSA CPT-4: 15970 08/21/2017 DRAIN/INJECT JOINT/BURSA CPT-4: 05227 08/12/2017 TRIAMCINOLONE ACET INJ NOS CPT-4: J3301 08/12/2017 DRAIN/INJECT JOINT/BURSA CPT-4: 26032 08/05/2017 TRIAMCINOLONE ACET INJ NOS CPT-4: J3301 08/05/2017 DRAIN/INJECT JOINT/BURSA CPT-4: 85107 07/23/2017 DRAIN/INJECT JOINT/BURSA CPT-4: 82714 07/09/2017 TRIAMCINOLONE ACET INJ NOS CPT-4: J3301 07/09/2017 PRESCRIP TRANSMIT VIA ERX SY CPT-4: G8553 07/09/2017 DRAIN/INJECT JOINT/BURSA CPT-4: 54391 07/01/2017 TRIAMCINOLONE ACET INJ NOS CPT-4: J3301 07/01/2017 PRESCRIP TRANSMIT VIA ERX SY CPT-4: G8553 07/01/2017 DRAIN/INJECT JOINT/BURSA CPT-4: 89943 06/17/2017 DRAIN/INJECT JOINT/BURSA CPT-4: 47972 04/02/2017 TRIAMCINOLONE ACET INJ NOS CPT-4: J3301 04/02/2017 DRAIN/INJECT JOINT/BURSA CPT-4: 96827 02/06/2017 ADMIN INFLUENZA VIRUS VAC CPT-4: G0008 12/08/2016 FLU VACC PRSV FREE INC ANTIG CPT-4: 31776 12/08/2016 PRESCRIP TRANSMIT VIA ERX SY CPT-4: G8553 12/08/2016 PRESCRIP TRANSMIT VIA ERX SY CPT-4: G8553 11/17/2016 TRIAMCINOLONE ACET INJ NOS CPT-4: J3301 10/02/2016 TRIAMCINOLONE ACET INJ NOS CPT-4: J3301 09/12/2016 DRAIN/INJECT JOINT/BURSA CPT-4: 73468 09/08/2016 TRIAMCINOLONE ACET INJ NOS CPT-4: J3301 09/08/2016 PRESCRIP TRANSMIT VIA ERX SY CPT-4: G8553 08/26/2016 PRESCRIP TRANSMIT VIA ERX SY CPT-4: G8553 08/18/2016 ADMIN INFLUENZA VIRUS VAC CPT-4: G0008 11/19/2015 FLU VACC PRSV FREE INC ANTIG Formatting Model/CDA Sections, Assigned to/Luanne Elaine CPT-4: 67485Vvvusoz 11/19/2015 PRESCRIP TRANSMIT VIA ERX SY CPT-4: G8553 09/04/2015 PRESCRIP TRANSMIT VIA ERX SY CPT-4: G8553 2015 PRESCRIP TRANSMIT VIA ERX SY CPT-4: G8553 07/18/2015 PRESCRIP TRANSMIT VIA ERX SY CPT-4: G8553 07/02/2015 REMOVE IMPACTED EAR WAX UNI CPT-4: 59070 04/09/2015 PRESCRIP TRANSMIT VIA ERX SY CPT-4: G8553 02/08/2015 ADMIN INFLUENZA VIRUS VAC CPT-4: G0008 01/10/2015 FLU VACC PRSV FREE INC ANTIG Formatting Model/CDA Sections, Assigned to/Luanne Elaine CPT-4: 68546Oxkbrto 01/10/2015 ADMIN PNEUMOCOCCAL VACCINE Formatting Model/CDA Sections, Assigned to SNOMED CT: [id number] CPT-4: T5110Xqdzecc 12/11/2014 PNEUMOCOCCAL VACC [address]: 09958418 CPT-4: 13243 12/11/2014 Vital Signs Date Vital 02/12/2018 Blood [...] Code : 8480-6 BMI: 23.5 Code : 70818-8 Heart Rate 1 : 58 bpm Height: 5'8" SpO2: 96% Weight: 152 lbs 11/30/2017 Blood Pressure 1: 122/70 Code : 8480-6 Heart Rate 1: 105 bpm Height: 5'8" SpO2: 98% Weight: 11/27/2017 Blood Pressure 1: 148/76 Code : 8480-6 Heart Rate 1: 72 bpm Height: 5'8" SpO2: 99% Weight: 11/10/2017 Blood Pressure 1: 130/76 Code : 8480-6 BMI: 27.3 Code : 79715-4 Heart Rate 1 : 98 bpm Height: [...] Code : 8480-6 BMI: 24.7 Code : 18547-9 Heart Rate 1 : 100 bpm Height: 5'8" SpO2: 95% Weight: 160 lbs 08/31/2017 Blood Pressure 1: 128/78 Code : 8480-6 BMI: 23.6 Code : 34604-0 Heart Rate 1 : 102 bpm Height: 5'8" SpO2: 96% Weight: 153 lbs 08/21/2017 Blood Pressure 1: 138/78 Code : 8480-6 Heart Rate 1: 97 bpm SpO2: 95% Weight: 156 lbs 2 oz 08/12/2017 Blood Pressure 1: 138/74 Code : 8480-6 BMI: 25.0 Code : 36698-5 Heart Rate 1 : 94 bpm Height: 5'8" SpO2: 98% Weight: 162 lbs 08/05/2017 Blood Pressure 1: 126/78 Code : 8480-6 BMI: 25.8 Code : 19738-9 Heart Rate 1 : 74 bpm Height: 5'8" SpO2: 96% Weight: 167 lbs 07/23/2017 Blood Pressure 1: 106/64 Code : 8480-6 BMI: 25.3 Code : 33242-8 Heart Rate 1 : 81 bpm Height: 5'8" SpO2: 99% Weight: 163 lbs 14 oz 07/09/2017 Blood Pressure 1: 130/68 Code : 8480-6 Heart Rate 1: 82 bpm Height: 5'8" SpO2: 98% Weight: 07/01/2017 Blood Pressure 1: 124/76 Code : 8480-6 BMI: 26.5 Code : 10942-6 Heart Rate 1 : 99 bpm Height: 5'8" SpO2: 98% Weight: 172 lbs 06/24/2017 Blood Pressure 1: 118/70 Code : 8480-6 Heart Rate 1: 103 bpm Height: 5'8" SpO2: 98% Weight: 06/17/2017 Blood Pressure 1: 110/64 Code : 8480-6 BMI: 25.0 Code : 43183-0 Heart Rate 1 : 73 bpm Height: 5'8" Weight: 162 lbs 06/01/2017 Blood Pressure 1: 158/84 Code : 8480-6 BMI: 24.4 Code : 33794-6 Heart Rate 1 : 94 bpm Height: 5'8" SpO2: 95% Weight: 158 lbs 04/02/2017 Blood Pressure 1: 164/80 Code : 8480-6 BMI: 23.1 Code : 08439-3 Heart Rate 1 : 76 bpm Height: 5'8" SpO2: 94% Weight: 150 lbs 03/12/2017 Blood Pressure 1: 130/74 Code : 8480-6 BMI: 23.0 Code : 76051-1 Heart Rate 1 : 92 bpm Height: 5'8" SpO2: 94% Weight: 149 lbs 02/06/2017 Height: Weight: 01/08/2017 Blood Pressure 1: 136/76 Code : 8480-6 BMI: 21.4 Code : 00979-4 Heart Rate 1 : 85 bpm Height: 5'8" SpO2: 98% Weight: 138 lbs 8 oz 12/08/2016 Blood Pressure 1: 132/66 Code : 8480-6 BMI: 22.2 Code : 88789-4 Heart Rate 1 : 106 bpm Height: 5'8" SpO2: 97% Weight: 144 lbs 11/17/2016 Blood Pressure 1: 146/80 Code : 8480-6 BMI: 22.4 Code : 48836-1 Heart Rate 1 : 100 bpm Height: 5'8" SpO2: 98% Weight: 145 lbs 11/10/2016 Blood Pressure 1: 122/62 Code : 8480-6 BMI: 22.2 Code : 47011-2 Height: 5'8" Weight: 144 lbs 11/05/2016 Blood Pressure 1: 146/80 Code : 8480-6 BMI: 22.2 Code : 42488-0 Heart Rate 1 : 77 bpm Height: 5'8" SpO2: 99% Weight: 144 lbs 10/07/2016 Blood Pressure 1: 132/68 Code : 8480-6 BMI: 22.8 Code : 98851-3 Heart Rate 1 : 90 bpm Height: 5'8" SpO2: 97% Weight: 148 lbs 10/02/2016 Blood Pressure 1: 166/86 Code : 8480-6 BMI: 22.8 Code : 34302-4 Heart Rate 1 : 96 bpm Height: 5'8" SpO2: 96% Weight: 148 lbs 09/12/2016 Blood Pressure 1: 130/86 Code : 8480-6 Height: Weight: 09/08/2016 Blood Pressure 1: 132/74 Code : 8480-6 BMI: 22.4 Code : 36812-0 Heart Rate 1 : 93 bpm Height: 5'8" SpO2: 99% Weight: 145 lbs 08/26/2016 Blood Pressure 1: 132/78 Code : 8480-6 BMI: 23.9 Code : 35199-5 Heart Rate 1 : 80 bpm Height: 5'8" SpO2: 94% Weight: 155 lbs 08/18/2016 Blood Pressure 1: 130/70 Code : 8480-6 BMI: 23.6 Code : 44808-7 Heart Rate 1 : 100 bpm Height: 5'8" SpO2: 94% Weight: 153 lbs 07/30/2016 Blood Pressure 1: 144/84 Code : 8480-6 BMI: 22.4 Code : 71676-5 Heart Rate 1 : 86 bpm Height: 5'8" SpO2: 97% Weight: 145 lbs 07/14/2016 Blood Pressure 1: 122/74 Code : 8480-6 BMI: 22.5 Code : 80006-5 Heart Rate 1 : 87 bpm Height: 5'8" SpO2: 97% Weight: 146 lbs 07/04/2016 Blood Pressure 1: 128/78 Code : 8480-6 BMI: 22.5 Code : 75560-3 Heart Rate 1 : 98 bpm Height: 5'8" Weight: 146 lbs 06/26/2016 Blood Pressure 1: 122/68 Code : 8480-6 BMI: 22.5 Code : 95833-0 Heart Rate 1 : 102 bpm Height: 5'8" SpO2: 98% Weight: 146 lbs 05/28/2016 Blood Pressure 1: 122/68 Code : 8480-6 BMI: 22.4 Code : 86060-1 Heart Rate 1 : 89 bpm Height: 5'8" SpO2: 97% Weight: 145 lbs 03/18/2016 Blood Pressure 1: 132/66 Code : 8480-6 BMI: 22.8 Code : 98424-4 Heart Rate 1 : 96 bpm Height: 5'8" SpO2: 98% Weight: 148 lbs 01/29/2016 Blood Pressure 1: 122/66 Code : 8480-6 BMI: 22.2 Code : 54495-9 Heart Rate 1 : 90 bpm Height: 5'8" SpO2: 99% Weight: 144 lbs 01/01/2016 Blood Pressure 1: 148/82 Code : 8480-6 BMI: 22.5 Code : 63765-4 Heart Rate 1 : 82 bpm Height: 5'8" Weight: 146 lbs 11/19/2015 Blood Pressure 1: 140/74 Code : 8480-6 BMI: 23.7 Code : 43390-8 Heart Rate 1 : 79 bpm Height: 5'8" SpO2: 96% Weight: 153 lbs 8 oz 11/01/2015 Blood Pressure 1: 118/72 Code : 8480-6 Heart Rate 1: 90 bpm Height: 5'8" SpO2: 95% 09/04/2015 Blood Pressure 1: 136/72 Code : 8480-6 BMI: 23.1 Code : 80911-3 Heart Rate 1 : 97 bpm Height: 5'8" SpO2: 98% Weight: 149 lbs 8 oz 2015 Blood Pressure 1: 144/76 Code : 8480-6 BMI: 22.8 Code : 94188-8 Heart Rate 1 : 75 bpm Height: 5'8" SpO2: 97% Weight: 148 lbs 07/18/2015 Blood Pressure 1: 132/60 Code : 8480-6 BMI: 23.1 Code : 78883-0 Heart Rate 1 : 78 bpm Height: 5'8" Weight: 150 lbs 07/02/2015 Blood Pressure 1: 156/86 Code : 8480-6 BMI: 23.0 Code : 47598-6 Heart Rate 1 : 75 bpm Height: 5'8" SpO2: 99% Weight: 149 lbs 05/31/2015 Blood Pressure 1: 136/72 Code : 8480-6 BMI: 22.7 Code : 14885-8 Heart Rate 1 : 85 bpm Height: 5'8" SpO2: 97% Weight: 147 lbs 04/09/2015 Blood Pressure 1: 118/60 Code : 8480-6 BMI: 22.7 Code : 84916-9 Heart Rate 1 : 72 bpm Height: 5'8" SpO2: 95% Weight: 147 lbs 02/08/2015 Blood Pressure 1: 138/76 Code : 8480-6 BMI: 23.1 Code : 24188-7 Heart Rate 1 : 80 bpm Height: 5'8" SpO2: 98% Weight: 150 lbs 12/11/2014 Blood Pressure 1: 120/74 Code : 8480-6 BMI: 22.1 Code : 98276-6 Heart Rate 1 : 92 bpm Height: 5'8" SpO2: 96% Weight: 143 lbs 11/09/2014 Blood Pressure 1: 100/64 Code : 8480-6 BMI: 21.6 Code : 42144-4 Heart Rate 1 : 88 bpm Height: 5'8" Weight: 140 lbs 10/23/2014 Blood Pressure 1: 138/82 Code : 8480-6 BMI: 23.6 Code : 51422-9 Heart Rate 1 : 86 bpm Height: 5'8" Weight: 153 lbs 10/16/2014 Blood Pressure 1: 128/60 Code : 8480-6 BMI: 23.3 Code : 65066-0 Heart Rate 1 : 91 bpm Height: 5'8" SpO2: 99% Weight: 151 lbs 10/09/2014 Blood Pressure 1: 120/60 Code : 8480-6 BMI: 23.0 Code : 88759-2 Heart Rate 1 : 96 bpm Height: 5'8" SpO2: 97% Weight: 149 lbs 09/14/2014 Blood Pressure 1: 132/72 Code : 8480-6 BMI: 22.1 Code : 68853-6 Heart Rate 1 : 84 bpm Height: 5'8" SpO2: 97% Weight: 143 lbs 08/11/2014 Blood Pressure 1: 134/74 Code : 8480-6 BMI: 24.1 Code : 63942-5 Heart Rate 1 : 88 bpm Height: 5'8" Weight: 156 lbs 07/12/2014 Blood Pressure 1: 122/62 Code : 8480-6 BMI: 22.7 Code : 18044-6 Heart Rate 1 : 76 bpm Height: [...] Dr. Blancas in [place] and Neurosurgeon in [place] in the past neck pain Significant Medical Conditions spinal stenosis 07/12/2014 has osteoarthritis Advance Directives No Advance Directive data Encounters Encounter Performer Location Codes Date ([id number]) 35085 EST. PATIENT, LEVEL III Diagnosis: Cough[ICD10: R05] Diagnosis: Acute bronchitis, unspecified[ICD10: J20.9] Ila Silva MD, [facility] CPT-4: 67518 02/12/2018 ([id number]) 45951 EST. PATIENT, LEVEL IV Diagnosis: Chronic pain syndrome[ICD10: G89.4] Diagnosis: Cough[ICD10: R05] Diagnosis: Diarrhea, unspecified[ICD10: R19.7] Diagnosis: Generalized edema[ICD10: R60.1] Ila Silva MD, [facility] CPT-4: 34128 02/09/2018 ([id number]) 64154 EST. PATIENT, LEVEL III Diagnosis: Generalized edema[ICD10: R60.1] Diagnosis: Lymphedema, not elsewhere classified[ICD10: I89.0] Araceli Silva MD, [facility] CPT-4: 95608 01/14/2018 ([id number]) 28701 EST. PATIENT, LEVEL IV Diagnosis: Essential (primary) hypertension[ICD10: I10] Diagnosis: Generalized edema[ICD10: R60.1] Diagnosis: Chronic pain syndrome[ICD10: G89.4] Araceli Silva MD, [facility] CPT-4: 79447 12/24/2017 ([id number]) 03671 EST. PATIENT, LEVEL III Diagnosis: Lymphedema, not elsewhere classified[ICD10: I89.0] Araceli Silva MD, [facility] CPT-4: 94936 11/30/2017 ([id number]) 53855 EST. PATIENT, LEVEL III Diagnosis: Generalized edema[ICD10: R60.1] Ila Silva MD, [facility] CPT-4: 43055 11/27/2017 ([id number]) 82423 EST. PATIENT, LEVEL IV Diagnosis: Localized edema[ICD10: [...] in left shoulder[ICD10: M25.512] Araceli Silva MD, [facility] CPT-4: 01378 11/10/2017 ([id number]) 85585 EST. PATIENT, LEVEL IV Diagnosis: Localized edema[ICD10: [...] in left shoulder[ICD10: M25.512] Araceli Silva MD, [facility] CPT-4: 66890 10/29/2017 ([id number]) 81214 EST. PATIENT, LEVEL IV Diagnosis: Essential (primary) [...] Diagnosis: Localized edema[ICD10: R60.0] Araceli Silva MD, [facility] CPT- 4: 75486 10/20/2017 ([id number]) 10214 EST. 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 PATIENT, LEVEL IV Diagnosis: Primary osteoarthritis, left shoulder[ICD10: M19.012] Diagnosis: Pain in left shoulder[ICD10: M25.512] Diagnosis: Lymphedema, not elsewhere classified[ICD10: I89.0] Diagnosis: Localized edema[ICD10: R60.0] Diagnosis: Chronic atrial fibrillation[ICD10: I48.2] Araceli Silva MD, [facility] CPT-4: 47421 09/15/2017 ([id number]) 46706 EST. PATIENT, LEVEL III Diagnosis: Primary osteoarthritis, left shoulder[ICD10: M19.012] Diagnosis: Pain in left shoulder[ICD10: M25.512] Diagnosis: Hemarthrosis, left shoulder[ICD10: M25.012] Araceli Silva MD, [facility] CPT-4: 75896 08/31/2017 ([id number]) 75701 EST. 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 PATIENT, LEVEL III Diagnosis: Localized edema[ICD10: R60.0] Araceli Silva MD, [facility] CPT- 4: 92508 07/23/2017 ([id number]) 82330 EST. PATIENT, LEVEL III Diagnosis: Rheumatoid arthritis without rheumatoid factor, left shoulder[ICD10: M06.012] Diagnosis: Hemarthrosis, left shoulder[ICD10: M25.012] Araceli Silva MD, [facility] CPT-4: 24944 07/09/2017 ([id number]) 33506 EST. PATIENT, LEVEL III Diagnosis: Chronic pain syndrome[ICD10: G89.4] Diagnosis: Rheumatoid arthritis without rheumatoid factor, left shoulder[ICD10: M06.012] Diagnosis: Hemarthrosis, left shoulder[ICD10: M25.012] Diagnosis: Lymphedema, not elsewhere classified[ICD10: I89.0] Araceli Silva MD, [facility] CPT-4: 58568 07/01/2017 ([id number]) 06834 EST. PATIENT, LEVEL III Diagnosis: Chronic pain syndrome[ICD10: G89.4] Araceli Silva MD, [facility] CPT-4: 04780 06/24/2017 ([id number]) 01035 EST. 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 PATIENT, LEVEL III Diagnosis: Pain in left shoulder[ICD10: M25.512] Diagnosis: Hemarthrosis, right shoulder[ICD10: M25.011] Diagnosis: Hemarthrosis, left shoulder[ICD10: M25.012] Maricel Silva MD, [facility] CPT-4: 92476 06/01/2017 ([id number]) 29752 EST. PATIENT, LEVEL II Diagnosis: Pain in right shoulder[ICD10: M25.511] Diagnosis: Hemarthrosis, right shoulder[ICD10: M25.011] Araceli Silva MD, [facility] CPT-4: 80997 04/02/2017 ([id number]) 05413 EST. PATIENT, LEVEL IV Diagnosis: Chronic pain syndrome[ICD10: G89.4] Diagnosis: Rheumatoid arthritis without rheumatoid factor, right shoulder[ICD10 : M06.011] Diagnosis: Rheumatoid arthritis without rheumatoid factor, left shoulder[ICD10: M06.012] Araceli Silva MD, [facility] CPT-4: 32286 2017 ([id number]) 60350 EST. 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 PATIENT, LEVEL IV Diagnosis: Encounter for immunization[ICD10: Z23] Diagnosis: Chronic pain syndrome[ICD10: G89.4] Diagnosis: Essential (primary) hypertension[ICD10: I10] Araceli Silva MD, [facility] CPT-4: 88377 12/08/2016 ([id number]) 64254 EST. PATIENT, LEVEL III Diagnosis: Urge incontinence[ICD10: N39.41] Diagnosis: Chronic pain syndrome[ICD10: G89.4] Diagnosis: Lymphedema, not elsewhere classified[ICD10: I89.0] Araceli Silva MD, [facility] CPT-4: 24850 11/17/2016 [id number] EST. 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 PATIENT, LEVEL IV Diagnosis: Essential (primary) hypertension[ICD10: I10] Diagnosis: Other chronic pain[ICD10: G89.29] Diagnosis: Localized edema[ICD10: R60.0] Diagnosis: Urge incontinence[ICD10: N39.41] Araceli Silva MD, [facility] CPT-4: 84459 11/05/2016 ([id number]) 17253 EST. 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 PATIENT, LEVEL III Diagnosis: Hemarthrosis, right shoulder[ICD10: M25.011] Diagnosis: Pain in right shoulder[ICD10: M25.511] Ila Silva MD, [facility] CPT-4: 73464 10/02/2016 33931 EST. PATIENT, LEVEL II Diagnosis: Low back pain[ICD10: M54.5] Diagnosis: Sacroiliitis, not elsewhere classified[ICD10: M46.1] Ila Silva MD, [facility] CPT-4: 24948 09/12/2016 ([id number]) 36144 EST. PATIENT, LEVEL III Diagnosis: Hemarthrosis, right shoulder[ICD10: M25.011] Diagnosis: Other chronic pain[ICD10: G89.29] Araceli Silva MD, [facility] CPT-4: 54963 09/08/2016 ([id number]) 54848 EST. PATIENT, LEVEL IV Diagnosis: Other iron deficiency anemias[ICD10: D50.8] Diagnosis: Vitamin D deficiency, unspecified[ICD10: E55.9] Diagnosis: Hypomagnesemia[ICD10: E83.42] Araceli Silva MD, [facility] CPT- 4: 45653 08/26/2016 ([id number]) 00646 EST. PATIENT, LEVEL III Diagnosis: Localized edema[ICD10: R60.0] Araceli Silva MD [facility] CPT- 4: 45877 08/18/2016 ([id number]) 95740 EST. 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 PATIENT, LEVEL IV Diagnosis: Pain in left shoulder[ICD10: M25.512] Diagnosis: Nocturia[ICD10: R35.1] Maricel Silva MD [facility] CPT-4: 61513 07/14/2016 73307 EST. PATIENT, LEVEL III Diagnosis: Pain in left shoulder[ICD10: M25.512] Maricel Silva MD, [facility] CPT-4: 27168 07/04/2016 ([id number]) 99563 EST. 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 PATIENT, LEVEL II Diagnosis: Insect bite (nonvenomous) of right upper arm, initial encounter[ICD10 : S40.861A] Ila Silva MD, [facility] CPT-4: 40946 11/01/2015 ([id number]) 22358 EST. 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 PATIENT, LEVEL III Diagnosis: Contusion of left upper arm, subsequent encounter[ICD10: S40.022D] Araceli Silva MD, [facility] CPT-4: 97803 2015 16352 EST. PATIENT, LEVEL III Diagnosis: Cellulitis of left upper limb[ICD10: L03.114] Maricel Silva MD, [facility] CPT-4: 63505 07/18/2015 ([id number]) 06300 EST. 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 PATIENT, LEVEL IV Diagnosis: Essential (primary) hypertension[ICD10: I10] Diagnosis: Vitamin D deficiency, unspecified[ICD10: E55.9] Diagnosis: Mixed hyperlipidemia[ICD10: E78.2] Diagnosis: Age-related osteoporosis with current pathological fracture, unspecified site, sequela[ICD10: M80.00XS] Araceli Silva MD, [facility] CPT- 4: 17283 02/08/2015 ([id number]) 67158 EST. PATIENT, LEVEL IV Diagnosis: Essential (primary) hypertension[ICD10: I10] Diagnosis: Localized edema[ICD10: R60.0] Diagnosis: Primary osteoarthritis, unspecified site[ICD10: M19.91] Araceli Silva MD, [facility] CPT-4: 55143 12/11/2014 99245 13145 EST. PATIENT, LEVEL III Diagnosis: EDEMA[ICD9: 782.3] Diagnosis: ESSENTIAL HYPERTENSION[ICD9: 401.9] Araceli Silva MD, [facility] CPT-4: 07567 11/09/2014 ([id number]) 76300 EST. PATIENT, LEVEL III Diagnosis: Leg pain[ICD9: 729.5] Diagnosis: Ulcer of toe[ICD9: 707.15] Araceli Silva MD, [facility] CPT- 4: 09774 10/23/2014 ([id number]) 43210 EST. PATIENT, LEVEL III Diagnosis: Ulcer of toe[ICD9: 707.15] Araceli Silva MD, [facility] CPT- 4: 83182 10/16/2014 77059 EST. PATIENT, LEVEL II Diagnosis: Ulcer of toe[ICD9: 707.15] Ila Silva MD, [facility] CPT-4: 53033 10/09/2014 ([id number]) 45251 EST. PATIENT, LEVEL III Diagnosis: EDEMA[ICD9: 782.3] Araceli Silva MD [facility] CPT-4: 29890 09/14/2014 ([id number]) 08172 EST. PATIENT, LEVEL IV Diagnosis: EDEMA[ICD9: 782.3] Diagnosis: ESSENTIAL HYPERTENSION[ICD9: 401.9] Araceli Silva MD, [facility] CPT-4: 69582 08/11/2014 ([id number]) OFFICE VISIT, NEW - LEVEL 4 Diagnosis: HYPERLIPIDEMIA[ICD9: 272.4] Diagnosis: VITAMIN D DEFICIENCY[ICD9: 268.9] Diagnosis: Osteoporosis[ICD9: 733.00] Diagnosis: Esophageal reflux[ICD9: 530.81] Diagnosis: Chronic pain[ICD9: 338.29] Araceli Silva MD, [facility] CPT- 4: 51305 07/12/2014 Plan of Care Planned Activity Notes Codes Status Date Visit Plan: Bronchitis - acute case of bronchitis identified. Pt has been given antibiotics, breathing treatments as appropriate, and pt has been instructed to call if symptoms are not improved, or if symptoms acutely worsen. 02/12/2018 Appointment: Ila Kennedy WPtel: [address] [place], [place] [phone] (30 min) [facility] 02/12/2018 Patient Education: Patient Medication Summary Completed 02/12/2018 Visit Plan: Chronic Pain Syndrome - pt has chronic pain - has been maintained on current medications, has not sought out other medications , only uses PRN pain medications as directed, and understands the consequences of over-medication. Lxmph-qwbhfmwnst-banannpw with lasix/metolazone -if swelling /weight increase, okay to increase metolazone to daily as directed Cough- okay for robitussin dm Diarrhea- rx for lomotil written and instructed on use-follow up in 3 weeks, sooner if needed. Call with any concerns. 02/09/2018 Appointment: Ila Kennedy WPtel: [phone] (30 min) Complex 02/09/2018 Patient Education: Patient Medication Summary Completed 02/09/2018 Appointment: [phone] [facility] (15 min) Moderate 02/04/2018 Visit Plan: [...] Appointment: Araceli Silva WPtel: [facility] (15 min) Moderate 01/14/2018 Patient Education: [...] oxycodone scheduled. 12/24/2017 Appointment: [facility] [phone] [facility] (30 min) Complex 12/24/2017 Patient Education: [...] output. 11/30/2017 Appointment: [facility] Silva [facility]Ptel[facility] [phone] [facility] [place] (15 min) Moderate 11/30/2017 Patient [...] over-medication. 11/10/2017 Appointment: [facility]el[facility] [phone] [facility] (15 min) Moderate 11/10/2017 Patient Education: [...] hands/fingers. We will contact [employer] in [place] for paperwork regarding the scooter. 10/29/2017 Appointment: [facility] Silva [facility]el[facility] [phone] [facility] (15 min) Moderate 10/29/2017 Patient Education: [...] time. 10/20/2017 Appointment: [facility] [phone] [facility] (30 min) Complex 10/20/2017 Patient Education: [...] drained today. 09/29/2017 Appointment: [facility] Silva [facility]Ptel[facility] [phone] [facility] [place] (15 min) Moderate 09/29/2017 Patient [...] Summary Completed 08/21/2017 Appointment: Araceli Silva WPtel: [address] [place] [address] (15 min) Moderate 08/20/2017 Visit Plan: Hemarthrosis shoulders - 250mL from left shoulder and 100mL from right shoulder with 1ml kenalog injected into right and left shoulders - Left and right shoulder pain and swelling, swelling into arms and left breast -pt to continue with use of compression sleeves. [id number] sep 2018 bristol 2ml kenalog 08/12/2017 Appointment: Araceli Silva WPtel: [address] [place] [address] (15 min) Moderate 08/12/2017 Patient Education: Patient [...] edema. 08/05/2017 Appointment: [facility]el[facility] [phone] [facility] (15 min) Moderate 08/05/2017 Patient Education: [...] Appointment: Araceli Silva WPtel: [facility] [place] (15 min) Moderate 07/23/2017 Patient [...] monitor symptoms. 07/09/2017 Appointment: [facility] Silva [facility]Ptel[facility] [phone] [facility] [place] (15 min) Moderate 07/09/2017 Patient [...] symptoms. 07/01/2017 Appointment: [facility]Ptel[facility] [phone] [facility] [place] (15 min) Moderate 07/01/2017 Patient Education: Patient Medication Summary Completed 07/01/2017 Visit Plan: Chronic Pain Syndrome - pt has chronic pain - has been maintained on current medications, has not sought out other medications , only uses PRN pain medications as directed, and understands the consequences of over-medication. 06/24/2017 Appointment: Araceli Silva WPtel: [phone] [facility] (15 min) Moderate 06/24/2017 Patient Education: Patient [...] edema. 06/17/2017 Appointment: [facility]el[facility] [phone] [facility] [place] (30 min) Complex 06/17/2017 Patient Education: Patient Medication Summary Completed 06/17/2017 Appointment: [facility] Silva [facility]Ptel[facility] [phone] [facility] [place] (15 min) Moderate 06/08/2017 Care Plan: Referral Order SNOMED-CT : [id number] Pending 06/02/2017 Visit Plan: Left and right [...] edema. 06/01/2017 Appointment: Maricel Gee WPtel: [phone] [facility] [place] (30 min) Complex 06/01/2017 Patient [...] shoulder 04/02/2017 Appointment: [facility] Silva [facility]Ptel[facility] [phone] [facility] [place] (15 min) Moderate 04/02/2017 Patient [...] upset. 03/12/2017 Appointment: Araceli Silva [facility]el: [phone] [...] LUANN. 01/08/2017 Appointment: [facility] Silva [facility]Ptel[facility] [phone] [facility] (15 min) Moderate 01/08/2017 Patient Education: [...] Remicaide. 12/08/2016 Appointment: [facility]el[facility] [phone] [facility] (15 min) Moderate 12/08/2016 Patient Education: [...] of over-medication. 11/10/2016 Appointment: Maricel Gee WPtel: [facility]5 [facility] (30 min) Complex 11/10/2016 Patient Education: [...] steroids, immunosuppression. 11/05/2016 Appointment: Araceli Silva WPtel: [phone] [facility] (15 min) Moderate 11/05/2016 Patient Education: Patient [...] Appointment: Araceli Silva WPtel: [facility]5 [facility] [place] (15 min) Moderate 10/07/2016 Patient Education: Patient Medication Summary Completed 10/07/2016 Care Plan: Referral Order SNOMED-CT : [id number] Pending 10/07/2016 Care Plan: Referral Order SNOMED-CT : [id number] Pending 10/07/2016 Visit Plan: Hemarthrosis -right shoulder-only able to drain 5ml of bloody drainage-unable to give oral steroids due to recent GI bleed -will give kenalog injection today in the office-discussed getting OSMO patch 10/02/2016 Appointment: Ila Kennedy WPtel: [facility]5 [phone] [place] (30 min) Complex 10/02/2016 Patient Education: Patient Medication Summary Completed 10/02/2016 Appointment: Araceli Silva WPtel: [facility]5 [facility] [place] (15 min) Moderate 09/23/2016 Appointment: Araceli Silva WPtel: [address] [place] [address] [place] (15 min) Moderate 09/17/2016 Visit Plan: Sacroiliitis - back exercises discussed with the patient, pt to continue with anti-inflammatories. Pt is to call if the symptoms do not improve or if they worsen. Kenalog injection today in the office. 09/12/2016 Appointment: Ila Kennedy WPtel: [facility]5 [phone] [place] (15 min) Moderate 09/12/2016 Patient [...] Injection of kenalog 1mL - 40mg - [place] - lot #[id number] , expires oct 2017 Chronic Pain Syndrome - pt has chronic pain - has been maintained on current medications, has not sought out other medications, only uses PRN pain medications as directed, and understands the consequences of over-medication. 09/08/2016 Appointment: Araceli Silva WPtel: [phone] [facility] [place] (15 min) Moderate 09/08/2016 Patient Education: [...] magnesium level 08/26/2016 Appointment: Araceli iSlva WPtel: [phone] [facility] [place] (15 min) Moderate 08/26/2016 Patient Education: [...] Summary Completed 08/18/2016 Appointment: Araceli Silva WPtel: [phone] [facility] [place] (15 min) Moderate 08/13/2016 Appointment: Araceli Silva WPtel: [phone] [facility] (15 min) Moderate 08/06/2016 Visit Plan: Chronic Pain Syndrome - pt has chronic pain - has been maintained on current medications, has not sought out other medications , only uses PRN pain medications as directed, and understands the consequences of over-medication. Neck pain with torticollis - pt is referred to [facility] for dry needling technique. Nocturia - pt [...] daytime. 07/30/2016 Appointment: Araceli Silva WPtel: [facility]5 [facility] (15 min) Moderate 07/30/2016 Patient Education: Patient Medication Summary Completed 07/30/2016 Visit Plan: Left shoulder pain - improving - pt is to notify clinic if symptoms do not improve, if they worsen, or with any questions or concerns. Nocturia - will give samples, pt is to notify clinic if symptoms do not improve. 07/14/2016 Appointment: Maricel Gee WPtel: [address] [place], [place] [phone] (30 min) Complex 07/14/2016 Patient Education: Patient [...] any dyspnea. 07/04/2016 Appointment: Maricel Gee WPtel: [address] [place], [place] [phone] (30 min) Complex 07/04/2016 Patient Education: Patient [...] [facility] (15 min) Moderate 06/26/2016 Patient Education: Patient [...] Moderate 05/12/2016 Appointment: Araceli Silva WPtel: [phone] [facility] [place] (15 min) Moderate 04/15/2016 Appointment: Araceli Silva WPtel: [phone] [facility] [place] (30 min) Complex 03/25/2016 Visit Plan: [...] the premarin. 03/18/2016 Appointment: [facility] [phone] [facility] [place] (30 min) Complex 03/18/2016 Patient Education: Patient Medication Summary Completed 03/18/2016 Appointment: Araceli Silva WPtel: [facility]9 [facility] (15 [...] Appointment: Araceli Silva WPtel: [facility] (15 min) Moderate 01/29/2016 Patient Education: Patient Medication Summary Completed 01/29/2016 Visit Plan: Discussed MRI of the neck - pt is interested in doing this - however, not prior to changing her medication first to see if this helps her pain 01/01/2016 Appointment: Araceli Silva WPtel: [facility]9 [facility] (15 min) Moderate 01/01/2016 Patient Education: Patient Medication Summary Completed 01/01/2016 Patient Education: Hypertension Completed 01/01/2016 Appointment: Araceli Silva WPtel: [facility]3 [facility] [place] (15 min) Moderate 12/03/2015 Visit Plan: [...] or nonhealing. 11/01/2015 Appointment: Ila Kennedy WPtel: [address] [place], [place] [phone] (15 min) Moderate 11/01/2015 Patient Education: Patient Medication Summary Completed 11/01/2015 Visit Plan: Chronic Pain Syndrome - pt has chronic pain - has been maintained on current medications, has not sought out other medications , only uses PRN pain medications as directed, and understands the consequences of over-medication. Muscle spasms - recommended muscle rub. 09/04/2015 Appointment: Araceli Silva WPtel: [address] [place], [place] [phone] (15 min) Moderate 09/04/2015 Patient Education: Patient Medication Summary Completed 09/04/2015 Visit Plan: Ecchymosis/hematoma - improving - discussed natural progression of hematomas - watchful waiting. 2015 Appointment: Araceli Silva WPtel: [address] [place], [place] [phone] (15 min) Moderate 2015 Patient Education: Patient Medication Summary Completed 2015 Visit Plan: Cellulitis - continue with oral antibiotics as previously directed, return to clinic as previously directed, call for acute change in symptoms, worsening redness, warmth, discharge. 07/18/2015 Appointment: Ila Kennedy WPtel: [facility] [place] [phone] (30 min) Complex 07/18/2015 Patient Education: Patient [...] center. 07/02/2015 Appointment: [phone] (15 min) Moderate 07/02/2015 Patient Education: Patient [...] process. 04/09/2015 Appointment: Araceli Silva WPtel: [phone] [facility] (15 min) Moderate 04/09/2015 Patient Education: Patient [...] supplementation. 02/08/2015 Appointment: [phone] [facility] (15 min) Moderate 02/08/2015 Patient Education: [...] evening. 12/11/2014 Appointment: Araceli Silva WPtel: [facility]5 [facility] (15 [...] Appointment: Araceli Silva WPtel: [facility] (15 min) Moderate 11/09/2014 Patient Education: Patient Medication Summary Completed 11/09/2014 Patient Education: Hypertension Completed 11/09/2014 Visit Plan: Leg pain/cellulitis of leg - start on the doxycycline twice daily - take this x 2 weeks, if the symptoms in your leg/ thigh are not completely resolved, there is a refill that is available. start on a probiotic one pill daily ([employer] or [employer]) this will help prevent the development of a bad type of diarrhea that can occur when taking antibiotics. Ulcer of toe - improving. 10/23/2014 Appointment: Araceli Silva WPtel: [facility]9 [facility] (15 min) Moderate 10/23/2014 Patient Education: Patient Medication Summary Completed 10/23/2014 Visit Plan: Ulcer - keep lesion covered, antibiotic ointment to be used, monitor - call if redness increases or starts streaking up the foot. 10/16/2014 Appointment: Araceli Silva WPtel: [facility]0 [facility] (15 [...] Appointment: Araceli Silva WPtel: [facility]1 [facility] Follow [...] over- medication. 07/12/2014 Appointment: Araceli Silva WPtel: [address] [place], [place] [address] [place] (S) New Patient 07/12/2014 Patient Education: [...] Injection of kenalog 1mL - 40mg - [place] - lot #[id number] , expires oct 2017 Chronic Pain Syndrome [...] start on a probiotic one pill daily ([employer]) this will help prevent the development of a bad type of diarrhea that can occur when taking antibiotics. . Leg pain/cellulitis of leg - start on the doxycycline twice daily - take this x 2 weeks, if the symptoms in your leg/thigh are not completely resolved, there is a refill that is available. start on a probiotic one pill daily ([employer]) this will help prevent the development of [...] the touch, or with any dyspnea. . Tick Bite - pt given script [...] further attempt to reduce peripheral edema. . Left shoulder pain - improving - pt is to notify clinic if symptoms do not improve, if they worsen, or with any questions or concerns. Nocturia - will give samples, pt is to notify clinic if symptoms do not improve. . Iron deficiency Anemia - recommended pt [...] prednisone to help decrease stomach upset. . Chronic Pain Syndrome - pt has [...] in the office-discussed getting OSMO patch . Edema-worsening- pt has persistent worsening of [...] hands/fingers. We will contact [employer] in [place] for paperwork regarding the scooter. . Hypertension [...] to continue with use of compression sleeves. [id number] sep 2018 bristol 2ml kenalog . Edema/Lymphedema [...] abx. Patient verbalized understanding of plan. . Hemarthrosis - pt was prepped and draped in sterile fashion - sterile 20 gauge needle used to access joint and drain via arthrocentesis - over 60mL of blood from joint. Dressed with pressure dressing and bandaid - advised to call if not improving or repeat drainage needed. Kenalog injected into joint after completion of removal of blood from shoulder . Atrial fibrillation - pt's rate is [...] directed, and understands the consequences of over-medication. Wtcrc-sxhbjawcmd-ukkpvqce with lasix/metolazone -if swelling/weight increase, okay to [...] office. two old goats muscle rub from [id number] [facility]. . Chronic Pain Syndrome [...]
[2018-06-03] MEDS ORDERED: POLYETHYLENE GLYCOL 17 GM (MIRALAX) PACK PO NR (18:00)
--- OUTSIDE RECORDS SUMMARY | 2018-06-03 18:02 | XMS REPORT | CCD ---
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 Helper Name Role Phone PP Unavailable CCM Unavailable Summary Purpose Interface Exchange Insurance Providers Payer name Policy type / Coverage type Covered alliance party ID Effective Begin Date Effective End Date [place] [employer] Medicare Part B [id number] 2017 Unknown AETNA Medicare Part B [id number] Unknown Family history Father Diagnosis Age At [...] Unknown Retired 07/12/[address]: 7581231 Quit over 10 years ago 1967 07/12/2014 [...] Start Date Stop Date Status Fill Instructions Flonase Allergy Relief 50 mcg/actuation nasal spray, suspension RxNorm: 7268807 2 [place] NASAL daily 02/12/20182017 Active Zithromax Z-Humberto 250 mg tablet RxNorm: 611951 1 Tablet(s) PO UD 02/12/2018 02/16/2018 Active Lomotil 2.5 mg-0.025 mg tablet RxNorm: 1715314 1 Tablet(s) PO BID PRN 02/09/2018 No Stop Date Active fentanyl 25 mcg/hr transdermal patch RxNorm: 674773 1 Patch TD Q72H use with 100mcg patch for a total of 125mcg daily 02/09/2018 03/10/2018 Active oxycodone 30 mg tablet RxNorm: 5302506 1/2 Tablet(s) PO Q6 03/14/2018 Active metolazone 10 mg tablet RxNorm: 388971 1 Tablet(s) PO QAM as needed uncontrolled edema 01/14/2018 03/14/2018 Active fentanyl 100 mcg/hr transdermal patch RxNorm: 253186 1 Patch TD Q72H use with 25mcg/hr patch 01/14/2018 02/12/2018 Inactive fentanyl 25 mcg/hr transdermal patch RxNorm: 625000 1 Patch TD Q72H use with 100mcg patch for a total of 125mcg daily 01/14/2018 02/08/2018 Inactive metolazone 10 mg tablet RxNorm: 702524 1 Tablet(s) PO every other day as needed uncontrolled edema 01/07/2018 01/13/2018 Inactive metolazone 10 mg tablet RxNorm: 981138 1 Tablet(s) PO every other day as needed uncontrolled edema 01/07/2018 01/06/2018 Inactive Cipro 500 mg tablet RxNorm: 876862 1 Tablet(s) PO BID 201701/05/2018 Inactive Cipro 500 mg tablet RxNorm: 537097 1 Tablet(s) PO BID 201701/15/2018 Inactive Cardizem CD 360 mg capsule,extended release RxNorm: 005608 1 Capsule(s) PO daily 01/05/2018 05/04/2018 Active potassium chloride ER 10 mEq tablet,extended release(part/ cryst) RxNorm: 3671368 2 Capsule(s) PO TID when taking lasix 01/05/2018 05/04/2018 Active potassium chloride ER 10 mEq capsule,extended release RxNorm: 715273 Capsule(s) TAKE 1 CAPSULE BY MOUTH TWICE DAILY WHEN TAKING LASIX (FUROSEMIDE) 11/27/2017 No Stop Date Active potassium chloride ER 10 mEq capsule,extended release RxNorm: 295798 Capsule(s) TAKE 1 CAPSULE BY MOUTH TWICE DAILY WHEN TAKING LASIX (FUROSEMIDE) 11/27/2017 11/26/2017 Inactive fentanyl 25 mcg/hr transdermal patch RxNorm: 486724 1 Patch TD Q72H use with 100mcg patch for a total of 125mcg daily 11/27/2017 12/26/2017 Inactive bumetanide 0.5 mg tablet RxNorm: 811322 1 Tablet(s) PO daily 12/23/2017 Inactive in the afternoon x 3 days then as needed per Dr Silva fentanyl 100 mcg/hr transdermal patch RxNorm: 585932 1 Patch TD Q72H use with 25mcg/hr patch 11/27/2017 12/26/2017 Inactive Lasix 20 mg tablet RxNorm: 299441 TAKE 1 TABLET BY MOUTH TWICE DAILY 10/29/2017 No Stop Date Active oxycodone 30 mg tablet RxNorm: 4138111 1/2 Tablet(s) PO Q6 12/27/2017 Inactive fentanyl 100 mcg/hr transdermal patch RxNorm: 872557 1 Patch TD Q72H use with 25mcg/hr patch 10/29/2017 11/26/2017 Inactive fentanyl 25 mcg/hr transdermal patch RxNorm: 461564 1 Patch TD Q72H use with 100mcg patch for a total of 125mcg daily 10/29/2017 11/26/2017 Inactive pantoprazole 40 mg tablet,delayed release RxNorm: 319092 Tablet(s) Take 1 tablet by mouth daily 10/21/2017 04/18/2018 Active - Ref: [id number] potassium chloride ER 10 mEq capsule,extended release RxNorm: 370641 TAKE 1 CAPSULE BY MOUTH TWICE DAILY WHEN TAKING LASIX (FUROSEMIDE) 10/09/2017 11/26/2017 Inactive fentanyl 25 mcg/hr transdermal patch RxNorm: 611111 1 Patch TD Q72H use with 100mcg patch for a total of 125mcg daily 10/01/2017 10/28/2017 Inactive fentanyl 100 mcg/hr transdermal patch RxNorm: 782136 1 Patch TD Q72H use with 25mcg/hr patch 10/01/2017 10/28/2017 Inactive potassium chloride ER 10 mEq tablet,extended release(part/ cryst) RxNorm: 3043602 1 Capsule(s) PO BID when taking lasix 09/22/2017 01/04/2018 Inactive fentanyl 100 mcg/hr transdermal patch RxNorm: 749267 1 Patch TD Q72H use with 25mcg/hr patch 08/31/2017 09/29/2017 Inactive Kenalog 40 mg/mL suspension for injection RxNorm: 2623988 1 Milliliter(s) Inj 08/31/2017 08/31/2017 Inactive fentanyl 25 mcg/hr transdermal patch RxNorm: 403014 1 Patch TD Q72H use with 100mcg patch for a total of 125mcg daily 08/31/2017 09/29/2017 Inactive oxycodone 30 mg tablet RxNorm: 4614165 1/2 Tablet(s) PO Q6 04/201710/28/2017 Inactive cyanocobalamin (vit B-12) 1,000 mcg/mL injection solution RxNorm: 849944 1 Milliliter(s) Inj monthly 08/21/201708/15 Active please provide her with syringe/needle for injection cyanocobalamin (vit B-12) 1,000 mcg/mL injection solution RxNorm: 394412 1 Milliliter(s) Inj monthly 08/21/201708/20 Inactive please provide her with syringe/needle for injection Kenalog 40 mg/mL suspension for injection RxNorm: 7659781 2 Milliliter(s) Inj 1mL in each shoulder 08/21/2017 08/21/2017 Inactive cyanocobalamin (vit B-12) 1,000 mcg/mL injection solution RxNorm: 907694 1 Milliliter(s) Inj monthly 08/21/201708/20 Inactive please provide her with syringe/needle for injection Kenalog 40 mg/mL suspension for injection RxNorm: 5027705 2 Milliliter(s) Inj UD 08/12/2017 08/12/2017 Inactive fentanyl 25 mcg/hr transdermal patch RxNorm: 485614 1 Patch TD Q72H use with 100mcg patch for a total of 125mcg daily 08/05/2017 08/30/2017 Inactive fentanyl 100 mcg/hr transdermal patch RxNorm: 639825 1 Patch TD Q72H use with 25mcg/hr patch 08/05/2017 08/30/2017 Inactive Kenalog 40 mg/mL suspension for injection RxNorm: 2148489 2 Milliliter(s) Inj 1mL per shoulder 08/05/2017 08/05/2017 Inactive clindamycin HCl 150 mg capsule RxNorm: 365623 1 Capsule(s) PO QID Dr Shultz prescribed 07/23/2017 07/29/2017 Inactive prednisone 5 mg tablet RxNorm: 132633 1 Tablet(s) PO daily 11/201707/03/2018 Active fentanyl 25 mcg/hr transdermal patch RxNorm: 886869 1 Patch TD Q72H use with 100mcg patch for a total of 125mcg daily 07/01/2017 07/30/2017 Inactive Lasix 20 mg tablet RxNorm: 897044 1 Tablet(s) PO BID 201710/28/2017 Inactive fentanyl 100 mcg/hr transdermal patch RxNorm: 780341 1 Patch TD Q72H use with 25mcg/hr patch 07/01/2017 07/30/2017 Inactive potassium chloride ER 10 mEq capsule,extended release RxNorm: 569676 1 Capsule(s) PO BID when taking lasix 07/01/20172017 Inactive oxycodone 30 mg tablet RxNorm: 5134839 1/2 Tablet(s) PO Q6 08/22/2017 Inactive fentanyl 100 mcg/hr transdermal patch RxNorm: 597331 1 Patch TD Q72H use with 25mcg/hr patch 05/07/2017 06/05/2017 Inactive fentanyl 25 mcg/hr transdermal patch RxNorm: 523762 1 Patch TD Q72H use with 100mcg patch for a total of 125mcg daily 05/07/2017 06/05/2017 Inactive fentanyl 100 mcg/hr transdermal patch RxNorm: 947662 1 Patch TD Q72H 04/08/2017 05/06/2017 Inactive fentanyl 25 mcg/hr transdermal patch RxNorm: 389889 1 Patch TD Q72H use with 100mcg patch for a total of 125mcg daily 04/08/2017 05/06/2017 Inactive Kenalog 40 mg/mL suspension for injection RxNorm: 2576394 1.5 Milliliter(s) Inj 04/02/2017 04/02/2017 Inactive fentanyl 100 mcg/hr transdermal patch RxNorm: 353004 1 Patch TD Q72H 03/12/2017 04/07/2017 Inactive fentanyl 25 mcg/hr transdermal patch RxNorm: 843637 1 Patch TD Q72H use with 100mcg patch for a total of 125mcg daily 03/12/2017 04/07/2017 Inactive oxycodone 30 mg tablet RxNorm: 1130594 1/2 Tablet(s) PO Q6 09/201704/07/2017 Inactive cyanocobalamin (vit B-12) 1,000 mcg/mL injection syringe RxNorm: 564347 1 Milliliter(s) Inj monthly 02/16/2017 No Stop Date Active please provide with supplys needed for injection fentanyl 100 mcg/hr transdermal patch RxNorm: 081738 1 Patch TD Q72H 02/06/2017 03/07/2017 Inactive Myrbetriq 50 mg tablet,extended release RxNorm: 0636165 1 Tablet(s) PO QPM 12/11/2016 07/22/2017 Inactive oxycodone 30 mg tablet RxNorm: 5128626 1/2 Tablet(s) PO Q6 10/201601/06/2017 Inactive naproxen 500 mg tablet RxNorm: 373132 1 Tablet(s) PO BID Take 1 tablet by mouth two times daily as needed 12/08/201607/08 Inactive - First Attempt Ref: [id number] Myrbetriq 50 mg tablet,extended release RxNorm: 2394039 1 Tablet(s) PO QPM 11/17/2016 12/10/2016 Inactive fentanyl 100 mcg/hr transdermal patch RxNorm: 270977 1 Patch TD Q72H 11/12/2016 12/11/2016 Inactive Vesicare 10 mg tablet RxNorm: 442094 1 Tablet(s) PO QPM 201611/18/2016 Inactive oxycodone 10 mg tablet RxNorm: 4044321 1-2 Tablet(s) PO Q4 PRN as needed to take between 30mg dose if needed for extra pain control 201612/07/2016 Inactive fentanyl 75 mcg/hr transdermal patch RxNorm: 370924 1 TD Q72H 10/22/2016 11/10/2016 Inactive oxycodone 10 mg tablet RxNorm: 5919767 1-2 Tablet(s) PO Q4 PRN as needed to take between 30mg dose if needed for extra pain control 201611/04/2016 Inactive Kenalog 40 mg/mL suspension for injection RxNorm: 1489336 1 Milliliter(s) Inj 10/02/2016 10/02/2016 Inactive Kenalog 40 mg/mL suspension for injection RxNorm: 8221866 1 Milliliter(s) Inj 09/12/2016 09/12/2016 Inactive cyclobenzaprine 5 mg tablet RxNorm: 075759 1 Tablet(s) PO Q8 as needed muscle spasms 09/11/2016 07/22/2017 Inactive prednisone 10 mg tablets in a dose pack RxNorm: 966711 1 Tablet(s) PO UD 09/09/2016 06/23/2017 Inactive potassium chloride ER 10 mEq capsule,extended release RxNorm: 221379 1 Capsule(s) PO BID as needed when taking lasix 08/26/2016 06/30/2017 Inactive Lasix 20 mg tablet RxNorm: 572786 1 Tablet(s) PO BID daily x 10 days then as needed edema 08/26/2016 12/23/2016 Inactive naproxen 500 mg tablet RxNorm: 828157 Take 1 tablet by mouth two times daily as needed 08/18/2016 11/15/2016 Inactive - First Attempt Ref: [id number] Lasix 20 mg tablet RxNorm: 936247 1 Tablet(s) PO QAM daily x 10 days then as needed edema 08/18/2016 08/25/2016 Inactive Vesicare 5 mg tablet RxNorm: 014703 1 Tablet(s) PO QPM 201611/04/2016 Inactive potassium chloride ER 10 mEq capsule,extended release RxNorm: 799241 1 Capsule(s) PO QAM as needed when taking lasix 08/18/2016 08/25/2016 Inactive Myrbetriq 25 mg tablet,extended release RxNorm: 8021156 1 Tablet(s) PO QHS 07/14/2016 07/29/2016 Inactive pantoprazole 40 mg tablet,delayed release RxNorm: 344489 Take 1 tablet by mouth daily 06/30/2016 12/26/2016 Inactive - Ref: [id number] Embeda 20 mg-0.8 mg capsule, extend release, oral only RxNorm: 516184 1 Capsule(s ) PO daily 06/04/2016 06/03/2016 Inactive Embeda 20 mg-0.8 mg capsule, extend release, oral only RxNorm: 592315 1 Capsule(s ) PO daily 06/04/2016 07/01/2016 Inactive oxycodone 10 mg tablet RxNorm: 8730078 1 Tablet(s) PO QID as needed to take between 30mg dose if needed for extra pain control 201606/10/2016 Inactive oxycodone 30 mg tablet RxNorm: 4198548 1 Tablet(s) PO Q6 201611/04/2016 Inactive cyanocobalamin (vit B-12) 1,000 mcg/mL injection solution RxNorm: 235072 1 Milliliter(s) Inj monthly 02/22/201602/15 Inactive she also needs syringes/ needles for this solution QS oxycodone 30 mg tablet RxNorm: 5029272 1 Tablet(s) PO Q6 201503/19/2016 Inactive oxycodone 10 mg tablet RxNorm: 0635940 1 Tablet(s) PO QID as needed to take between 30mg dose if needed for extra pain control 201503/19/2016 Inactive oxycodone 10 mg tablet RxNorm: 2126082 1 Tablet(s) PO QID as needed to take between 30mg dose if needed for extra pain control 201502/18/2016 Inactive oxycodone 30 mg tablet RxNorm: 9135786 1 Tablet(s) PO Q6 201502/18/2016 Inactive pantoprazole 40 mg tablet,delayed release RxNorm: 937600 Take 1 tablet by mouth daily 01/22/2016 06/29/2016 Inactive - First Attempt Ref: [id number] oxycodone 30 mg tablet RxNorm: 1669930 1 Tablet(s) PO Q6 201501/28/2016 Inactive oxycodone 10 mg tablet RxNorm: 9002548 1 Tablet(s) PO QID as needed take between 20mg dose if needed for extra pain control 11/07/2015 12/06/2015 Inactive oxycodone 20 mg tablet RxNorm: 5342019 1 Tablet(s) PO Q6 as needed 11/07/2015 12/31/2015 Inactive doxycycline hyclate 100 mg tablet RxNorm: 542448 1 Tablet(s) PO BID 11/01/2015 11/10/2015 Inactive potassium chloride ER 10 mEq capsule,extended release RxNorm: 452441 1 Capsule(s) PO TIW as needed when taking lasix 09/04/2015 08/17/2016 Inactive Voltaren 1 % topical gel RxNorm: 149756 2 Gram(s) TOP QID 08/2909/03/2015 Inactive pa approved Voltaren 1 % topical gel RxNorm: 872125 2 Gram(s) TOP QID 08/0808/29/2015 Inactive naproxen 500 mg tablet RxNorm: 626207 1 Tablet(s) PO BID 201508/17/2016 Inactive naproxen 500 mg tablet RxNorm: 937666 1 Tablet(s) PO BID 201508/08/2015 Inactive doxycycline hyclate 100 mg tablet RxNorm: 094659 1 Tablet(s) PO BID do not take calcium/vitamin d while on antibiotic 07/18/2015 07/31/2015 Inactive Vitamin D2 50,000 unit capsule RxNorm: 381670 1 Capsule(s) PO QW 07/02/2015 11/18/2015 Inactive Premarin 0.3 mg tablet RxNorm: 040238 1 Tablet(s) PO daily 12/201505/09/2015 Inactive Premarin 0.3 mg tablet RxNorm: 427039 1 Tablet(s) PO daily 12/201503/17/2016 Inactive simvastatin 40 mg tablet RxNorm: 983437 1 Tablet(s) PO daily 03/17/2016 Inactive spironolactone 25 mg tablet RxNorm: 938455 TAKE ONE TABLET BY MOUTH DAILY 05/07/2015 05/27/2016 Inactive potassium chloride ER 10 mEq capsule,extended release RxNorm: 541561 1 Capsule(s) PO TIW as needed when taking lasix 04/17/2015 09/03/2015 Inactive alendronate 70 mg tablet RxNorm: 722534 1 Tablet(s) PO weekly QW 04/17/2015 07/01/2015 Inactive Vitamin D2 50,000 unit capsule RxNorm: 524777 1 Capsule(s) PO QW 03/30/2015 06/27/2015 Inactive Vitamin D2 50,000 unit capsule RxNorm: 125278 1 Capsule(s) PO QW 03/21/2015 03/29/2015 Inactive cyanocobalamin (vit B-12) 1,000 mcg/mL injection solution RxNorm: 874821 1 Milliliter(s) Inj monthly 03/19/201502/20 Inactive cyanocobalamin (vit B-12) 1,000 mcg/mL injection solution RxNorm: 786658 1 Milliliter(s) Inj monthly 03/16/201503/18 Inactive cyanocobalamin (vit B-12) 1,000 mcg/mL injection solution RxNorm: 091155 1 Milliliter(s) Inj monthly 03/16/201503/15 Inactive pantoprazole 40 mg tablet,delayed release RxNorm: 367107 1 Tablet(s) PO daily 03/05/2015 01/21/2016 Inactive Lasix 20 mg tablet RxNorm: 155344 1 Tablet(s) PO TIW as needed edema 02/08/2015 02/02/2016 Inactive oxycodone 10 mg tablet RxNorm: 6237632 1 Tablet(s) PO QID as needed take between 20mg dose if needed for extra pain control 11/09/2014 12/08/2014 Inactive oxycodone 20 mg tablet RxNorm: 1049075 1 Tablet(s) PO Q6 as needed 10/25/2014 11/06/2015 Inactive doxycycline hyclate 100 mg tablet RxNorm: 537347 1 Tablet(s) PO BID 10/23/2014 11/19/2014 Inactive Cipro 500 mg tablet RxNorm: 078654 1 Tablet(s) PO BID 201410/16/2014 Inactive Cipro 500 mg tablet RxNorm: 463968 1 Tablet(s) PO BID 201410/09/2014 Inactive oxycodone 20 mg tablet RxNorm: 9880866 1 Tablet(s) PO Q6 as needed 09/25/2014 10/24/2014 Inactive Lasix 20 mg tablet RxNorm: 393493 1 Tablet(s) PO TIW as needed edema 09/14/2014 01/11/2015 Inactive potassium chloride ER 10 mEq capsule,extended release RxNorm: 744881 1 Capsule(s) PO TIW as needed when taking lasix 09/14/2014 01/11/2015 Inactive doxycycline hyclate 100 mg tablet RxNorm: 271967 1 Tablet(s) PO BID 09/05/2014 09/14/2014 Inactive doxycycline hyclate 100 mg tablet RxNorm: 902276 1 Tablet(s) PO BID 09/05/2014 09/04/2014 Inactive oxycodone 20 mg tablet RxNorm: 3378242 1 Tablet(s) PO Q6 as needed 08/29/2014 09/24/2014 Inactive spironolactone 25 mg tablet RxNorm: 189489 1 Tablet(s) PO daily 08/11/2014 03/08/2015 Inactive oxycodone 20 mg tablet RxNorm: 0097220 1 Tablet(s) PO Q6 as needed 08/02/2014 08/28/2014 Inactive Vitamin D3 2,000 unit tablet RxNorm: 807274 1 Tablet(s) PO daily 07/14/2014 No Stop Date Active Vitamin D2 50,000 unit capsule RxNorm: 441191 1 Capsule(s) PO QW 07/14/2014 10/11/2014 Inactive Vitamin D2 50,000 unit capsule RxNorm: 843105 1 Capsule(s) PO QW 07/14/2014 07/13/2014 Inactive Prolia 60 mg/mL subcutaneous syringe RxNorm: 393777 Milliliter(s) SQ EVERY 6 MONTHS No Start Date Active Carafate 1 gram tablet RxNorm: 517496 1 Tablet(s) PO BID No Start Date Active Miralax oral RxNorm: 858710 oral No Start Date Active Stool Softener oral RxNorm: 35537 oral No Start Date Active Calcium + Vitamin D oral RxNorm: 4018 oral No Start Date Active naproxen 500 mg tablet RxNorm: 607675 1 Tablet(s) PO BID No Start Date 08/05/2015 Inactive oxycodone 20 mg tablet RxNorm: 2248247 1 Tablet(s) PO Q6 as needed No Start Date 08/01/2014 Inactive aspirin 81 mg tablet RxNorm: 463152 1 Tablet(s) PO daily No Start Date 07/22/2017 Inactive simvastatin 40 mg tablet RxNorm: 176555 1 Tablet(s) PO daily No Start Date 05/09/2015 Inactive cyanocobalamin (vit B-12) 1,000 mcg/mL injection syringe RxNorm: 237177 1 Inj monthly No Start Date 02/15/2017 Inactive Reglan 10 mg tablet RxNorm: 896586 1 Tablet(s) PO as needed No Start Date 07/29/2016 Inactive alendronate 70 mg tablet RxNorm: 936598 1 Tablet(s) PO weekly No Start Date 04/16/2015 Inactive Protonix 40 mg tablet,delayed release RxNorm: 779655 1 Tablet(s) PO daily No Start Date 03/04/2015 Inactive cyclobenzaprine 5 mg tablet RxNorm: 133721 1 Tablet(s) PO Q8 as needed muscle spasms No Start Date 09/10/2016 Inactive Vitamin D3 1,000 unit capsule RxNorm: 201399 1 Capsule(s) PO daily No Start Date 07/13/2014 Inactive Cardizem CD 360 mg capsule,extended release RxNorm: 467729 1 Capsule(s) PO daily No Start Date 01/04/2018 Inactive prednisone 10 mg tablets in a dose pack RxNorm: 625021 1 Tablet(s) PO UD No Start Date 09/08/2016 Inactive Medication Administered Medication Codes Instructions Start Date Status Kenalog 40 mg/mL suspension for injection RxNorm: 3663706 1Milliliter 08/31/2017 No longer Active Kenalog 40 mg/mL suspension for injection RxNorm: 9574613 2Milliliter 08/21/2017 No longer Active Kenalog 40 mg/mL suspension for injection RxNorm: 4385976 2MilliliterUD 08/12/2017 No longer Active Kenalog 40 mg/mL suspension for injection RxNorm: 2459120 2Milliliter 08/05/2017 No longer Active Kenalog 40 mg/mL suspension for injection RxNorm: 2975523 1.5Milliliter 04/02/2017 No longer Active Kenalog 40 mg/mL suspension for injection RxNorm: 2431811 1Milliliter 10/02/2016 No longer Active Kenalog 40 mg/mL suspension for injection RxNorm: 8805906 1Milliliter 09/12/2016 No longer Active Immunizations Vaccine Codes Date Status Influenza CVX: 141 12/03/2017 completed Influenza CVX: 141 12/08/2016 completed Influenza CVX: 141 11/19/2015 completed Influenza CVX: 141 01/10/2015 completed Pneumococcal (Adult) CVX: 133 12/11/2014 completed Pneumococcal (Adult) CVX: 133 12/11/2014 completed Assessments Condition Codes Effective Dates Cough ICD-10: R05 ICD-9: 786.2 02/12/2018 Acute bronchitis, unspecified ICD-10: J20.9 ICD-9: [...] Tibc Ord40 Fe-%Sat 21.7 % 10/22/2017 Prealbumin 596998 PREALBUMIN 33 mg/dL 10/21/2017 Comp Metabolic Azk514 NA 134 mEq/L 10/20/2017 Comp Metabolic Jbp784 K 3.7 mEq/L 10/20/2017 Comp Metabolic Lpg055 CL 93 mEq/L 10/20/2017 Comp Metabolic Wlp553 CO2 29.0 mEq/L 10/20/2017 Comp Metabolic Cwr085 ANION GAP 16 10/20/2017 Comp Metabolic Uyf549 GLUCOSE 115 mg/dL 10/20/2017 Comp Metabolic Emi577 Creat 0.8 mg/dL 10/20/2017 Comp Metabolic Rux525 eGFR 73 ml/min/1.73m2 10/20/2017 Comp Metabolic Xnq845 BUN 46 mg/dL 10/20/2017 Comp Metabolic Idj009 B/C Ratio 57.5 Ratio 10/20/2017 Comp Metabolic Vwf963 CALCIUM 8.7 mg/dL 10/20/2017 Comp Metabolic Blk156 ALK PHOS 56 U/L 10/20/2017 Comp Metabolic Gjq746 AST(SGOT) 19 U/L 10/20/2017 Comp Metabolic Kkt859 ALT(SGPT) 23 U/L 10/20/2017 Comp Metabolic Ldb270 BILI T 0.6 mg/dL 10/20/2017 Comp Metabolic Uil204 ALBUMIN 4.0 g/dL 10/20/2017 Comp Metabolic Fkz972 TPRO 6.6 g/dL 10/20/2017 Comp Metabolic Vya881 GLOB 2.7 g/dL 10/20/2017 Comp Metabolic Bpo952 A/G Ratio 1.5 Ratio 10/20/2017 Comp Metabolic Twr370 Osmo 281 mOsmo 10/20/2017 Tsh Ord6 TSH [...] 35.4 pg 10/20/2017 Cbc With Differential Ord2 Jewell% 9.9 % 10/20/2017 Cbc With Differential Ord2 [...] 1.15 K/ul 10/20/2017 Cbc With Differential Ord2 Jewell ABS# 0.6 K/ul 10/20/2017 Cbc With Differential Ord2 Eos ABS# 0.0 K/ul 10/20/2017 Cbc With Differential Ord2 Baso ABS# 0.0 K/ul 10/20/2017 Iron Ord72 Iron 75 ug/dl 10/20/2017 Romie Reflex Profile [id number] ROMIE (BRYANNA) SCREEN NONE DETECTED 01/12/2017 Comp Metabolic Ugt863 NA 129 mEq/L 01/08/2017 Comp Metabolic Woj740 K 3.9 mEq/L 01/08/2017 Comp Metabolic Zvy913 CL 94 mEq/L 01/08/2017 Comp Metabolic Lxn945 CO2 31.0 mEq/L 01/08/2017 Comp Metabolic Qzo901 ANION GAP 8 01/08/2017 Comp Metabolic Fso610 GLUCOSE 103 mg/dL 01/08/2017 Comp Metabolic Nly620 Creat 0.9 mg/dL 01/08/2017 Comp Metabolic Bij281 eGFR 61 ml/min/1.73m2 01/08/2017 Comp Metabolic Myq734 BUN 29 mg/dL 01/08/2017 Comp Metabolic Qbp398 B/C Ratio 30.9 Ratio 01/08/2017 Comp Metabolic Uor428 CALCIUM 8.5 mg/dL 01/08/2017 Comp Metabolic Xyp430 ALK PHOS 58 U/L 01/08/2017 Comp Metabolic Plx993 AST(SGOT) 17 U/L 01/08/2017 Comp Metabolic Qad712 ALT(SGPT) 10 U/L 01/08/2017 Comp Metabolic Gne619 BILI T 0.4 mg/dL 01/08/2017 Comp Metabolic Rsb628 ALBUMIN 3.0 g/dL 01/08/2017 Comp Metabolic Mje376 TPRO 5.5 g/dL 01/08/2017 Comp Metabolic Dzm815 GLOB 2.5 g/dL 01/08/2017 Comp Metabolic Eis331 A/G Ratio 1.2 Ratio 01/08/2017 Comp Metabolic Ufe788 Osmo 265 mOsmo 01/08/2017 Cbc With Differential [...] 23.3 % 01/08/2017 Cbc With Differential Ord2 Jewell% 12.2 % 01/08/2017 Cbc With Differential Ord2 [...] 1.62 K/ul 01/08/2017 Cbc With Differential Ord2 Jewell ABS# 0.9 K/ul 01/08/2017 Cbc With Differential [...] 100.3 fl 11/10/2016 Cbc With Differential Ord2 Jewell% 9.1 % 11/10/2016 Cbc With Differential Ord2 [...] 0.78 K/ul 11/10/2016 Cbc With Differential Ord2 Jewell ABS# 0.5 K/ul 11/10/2016 Cbc With Differential [...] 30.3 pg 10/07/2016 Cbc With Differential Ord2 Jewell% 11.8 % 10/07/2016 Cbc With Differential Ord2 [...] 1.54 K/ul 10/07/2016 Cbc With Differential Ord2 Jewell ABS# 1.0 K/ul 10/07/2016 Cbc With Differential Ord2 Eos ABS# 0.1 K/ul 10/07/2016 Cbc With Differential Ord2 Baso ABS# 0.0 K/ul 10/07/2016 Comp Metabolic Ojl079 NA 129 mEq/L 08/26/2016 Comp Metabolic Xbh561 K 3.9 mEq/L 08/26/2016 Comp Metabolic Roj217 CL 93 mEq/L 08/26/2016 Comp Metabolic Yml687 CO2 30.0 mEq/L 08/26/2016 Comp Metabolic Svr422 ANION GAP 10 08/26/2016 Comp Metabolic Ebo769 GLUCOSE 87 mg/dL 08/26/2016 Comp Metabolic Dal438 Creat 0.6 mg/dL 08/26/2016 Comp Metabolic Vpp736 eGFR 96 ml/min/1.73m2 08/26/2016 Comp Metabolic Jih469 BUN 17 mg/dL 08/26/2016 Comp Metabolic Ipz966 B/C Ratio 27.0 Ratio 08/26/2016 Comp Metabolic Cni846 CALCIUM 7.6 mg/dL 08/26/2016 Comp Metabolic Cji774 ALK PHOS 72 U/L 08/26/2016 Comp Metabolic Nby959 AST(SGOT) 20 U/L 08/26/2016 Comp Metabolic Ofw725 ALT(SGPT) 12 U/L 08/26/2016 Comp Metabolic Fre907 BILI T 0.3 mg/dL 08/26/2016 Comp Metabolic Iko964 ALBUMIN 2.7 g/dL 08/26/2016 Comp Metabolic Doz276 TPRO 5.3 g/dL 08/26/2016 Comp Metabolic Vfl044 GLOB 2.6 g/dL 08/26/2016 Comp Metabolic Kpj249 A/G Ratio 1.1 Ratio 08/26/2016 Comp Metabolic Dtx133 Osmo 260 mOsmo 08/26/2016 Cbc With Differential [...] 28.3 pg 08/26/2016 Cbc With Differential Ord2 Jewell% 9.6 % 08/26/2016 Cbc With Differential Ord2 [...] 1.83 K/ul 08/26/2016 Cbc With Differential Ord2 Jewell ABS# 1.0 K/ul 08/26/2016 Cbc With Differential Ord2 Eos ABS# 0.1 K/ul 08/26/2016 Cbc With Differential Ord2 Baso ABS# 0.0 K/ul 08/26/2016 Magnesium Ord90 Mag 1.9 mg/dL 08/26/2016 Vitamin D 25 Oh Uoi1048 VITAMIN D, 25 HYDROXY 34.59 ng/mL Tibc Ord40 Iron 13 ug/dl 08/26/2016 Tibc Ord40 UIBC 283 ug/dL 08/26/2016 Tibc Ord40 TIBC 296 ug/dL 08/26/2016 Tibc Ord40 Fe-%Sat 4.4 % 08/26/2016 Ferritin Ord22 FERRITIN 28.8 ng/mL 08/26/2016 Sed Rate Ord21 ESR 20 mm/hr 11/19/2015 Comp Metabolic Usv531 NA 131 mEq/L 08/22/2015 Comp Metabolic Jwc685 K 4.2 mEq/L 08/22/2015 Comp Metabolic Qav621 CL 98 mEq/L 08/22/2015 Comp Metabolic Sak978 CO2 27.0 mEq/L 08/22/2015 Comp Metabolic Xpr384 ANION GAP 10 08/22/2015 Comp Metabolic Hji931 GLUCOSE 80 mg/dL 08/22/2015 Comp Metabolic Ggc094 Creat 0.5 mg/dL 08/22/2015 Comp Metabolic Rpf256 eGFR 120 ml/min/1.73m2 08/22/2015 Comp Metabolic Rqm495 BUN 13 mg/dL 08/22/2015 Comp Metabolic Iqx435 B/C Ratio 25.0 Ratio 08/22/2015 Comp Metabolic Qty914 CALCIUM 8.2 mg/dL 08/22/2015 Comp Metabolic Eav761 ALK PHOS 49 U/L 08/22/2015 Comp Metabolic Rcb064 AST(SGOT) 18 U/L 08/22/2015 Comp Metabolic Zur311 ALT(SGPT) 11 U/L 08/22/2015 Comp Metabolic Dhi580 BILI T 0.5 mg/dL 08/22/2015 Comp Metabolic Duq157 ALBUMIN 3.5 g/dL 08/22/2015 Comp Metabolic Hvn525 TPRO 6.2 g/dL 08/22/2015 Comp Metabolic Fes546 GLOB 2.7 g/dL 08/22/2015 Comp Metabolic Faj360 A/G Ratio 1.3 Ratio 08/22/2015 Comp Metabolic Bgw225 Osmo 262 mOsmo 08/22/2015 Cbc With Differential [...] 32.4 pg 08/22/2015 Cbc With Differential Ord2 Jewell% 10.3 % 08/22/2015 Cbc With Differential Ord2 [...] 1.39 K/ul 08/22/2015 Cbc With Differential Ord2 Jewell ABS# 0.7 K/ul 08/22/2015 Cbc With Differential Ord2 Eos ABS# 0.1 K/ul 08/22/2015 Cbc With Differential Ord2 Baso ABS# 0.0 K/ul 08/22/2015 Tsh Ord6 hTSH II 2.19 uIU/mL 08/22/2015 Vitamin D 25 Oh [id number] VITAMIN D, 25 HYDROXY 55.10 ng/mL Lipid [...] 1.5 Ratio 03/16/2015 Vitamin D 25 Oh Dei7738 VITAMIN D, 25 HYDROXY 28.94 ng/mL Cbc [...] 28.1 pg 03/16/2015 Cbc With Differential Ord2 Jewell% 11.2 % 03/16/2015 Cbc With Differential Ord2 [...] 2.37 K/ul 03/16/2015 Cbc With Differential Ord2 Jewell ABS# 0.8 K/ul 03/16/2015 Cbc With Differential Ord2 Eos ABS# 0.1 K/ul 03/16/2015 Cbc With Differential Ord2 Baso ABS# 0.0 K/ul 03/16/2015 Cbc With Differential Ord2 New Analyzer Notice Please note new ref ranges starting 03-14-2015 due to implemntation of new five part differential hematolgy analyzer. 03/16/2015 Comp Metabolic Smq406 NA 131 mEq/L 03/16/2015 Comp Metabolic Mig248 K 4.1 mEq/L 03/16/2015 Comp Metabolic Aoy563 CL 94 mEq/L 03/16/2015 Comp Metabolic Bii889 CO2 28.0 mEq/L 03/16/2015 Comp Metabolic Rhm169 ANION GAP 13 03/16/2015 Comp Metabolic Jxv792 GLUCOSE 96 mg/dL 03/16/2015 Comp Metabolic Ukl186 Creat 0.7 mg/dL 03/16/2015 Comp Metabolic Cnm165 eGFR 80 ml/min/1.73m2 03/16/2015 Comp Metabolic Kfx815 BUN 16 mg/dL 03/16/2015 Comp Metabolic Cap557 B/C Ratio 21.6 Ratio 03/16/2015 Comp Metabolic Dun203 CALCIUM 8.9 mg/dL 03/16/2015 Comp Metabolic Gwy080 ALK PHOS 44 U/L 03/16/2015 Comp Metabolic Iti749 AST(SGOT) 22 U/L 03/16/2015 Comp Metabolic Jdf463 ALT(SGPT) 14 U/L 03/16/2015 Comp Metabolic Uew838 BILI T 0.5 mg/dL 03/16/2015 Comp Metabolic Lop968 ALBUMIN 3.4 g/dL 03/16/2015 Comp Metabolic Cwo198 TPRO 6.0 g/dL 03/16/2015 Comp Metabolic Qvc185 GLOB 2.6 g/dL 03/16/2015 Comp Metabolic Yob238 A/G Ratio 1.3 Ratio 03/16/2015 Comp Metabolic Blz806 Osmo 264 mOsmo 03/16/2015 Comp Metabolic Vud707 NA 129 mEq/L 11/09/2014 Comp Metabolic Wzv044 K 4.2 mEq/L 11/09/2014 Comp Metabolic Tsk200 CL 96 mEq/L 11/09/2014 Comp Metabolic Idm650 CO2 27.0 mEq/L 11/09/2014 Comp Metabolic Vbw555 ANION GAP 10 11/09/2014 Comp Metabolic Jln744 GLUCOSE 144 mg/dL 11/09/2014 Comp Metabolic Aff230 Creat 0.8 mg/dL 11/09/2014 Comp Metabolic Ecu985 eGFR 73 ml/min/1.73m2 11/09/2014 Comp Metabolic Ooa189 BUN 22 mg/dL 11/09/2014 Comp Metabolic Yze030 B/C Ratio 27.5 Ratio 11/09/2014 Comp Metabolic Fbz404 CALCIUM 8.6 mg/dL 11/09/2014 Comp Metabolic Opy905 ALK PHOS 55 U/L 11/09/2014 Comp Metabolic Qkl972 AST(SGOT) 27 U/L 11/09/2014 Comp Metabolic Ega510 ALT(SGPT) 18 U/L 11/09/2014 Comp Metabolic Jfp969 BILI T 0.5 mg/dL 11/09/2014 Comp Metabolic Xsh656 ALBUMIN 3.0 g/dL 11/09/2014 Comp Metabolic Hho188 TPRO 5.4 g/dL 11/09/2014 Comp Metabolic Hud911 GLOB 2.4 g/dL 11/09/2014 Comp Metabolic Smz439 A/G Ratio 1.3 Ratio 11/09/2014 Comp Metabolic Mxz903 Osmo 265 mOsmo 11/09/2014 Magnesium Ord90 Mag [...] muscle weakness 2015 Constitutional No recent illness 12/10/ 2015 Constitutional No anorexia 02/08/2015 Constitutional No night [...] Procedures Procedure Codes Date DRAIN/INJECT JOINT/BURSA CPT-4: 87658 08/21/2017 DRAIN/INJECT JOINT/BURSA CPT-4: 61865 08/12/2017 TRIAMCINOLONE ACET INJ NOS CPT-4: J3301 08/12/2017 DRAIN/INJECT JOINT/BURSA CPT-4: 70745 08/05/2017 TRIAMCINOLONE ACET INJ NOS CPT-4: J3301 08/05/2017 DRAIN/INJECT JOINT/BURSA CPT-4: 12624 07/23/2017 DRAIN/INJECT JOINT/BURSA CPT-4: 35811 07/09/2017 TRIAMCINOLONE ACET INJ NOS CPT-4: J3301 07/09/2017 PRESCRIP TRANSMIT VIA ERX SY CPT-4: G8553 07/09/2017 DRAIN/INJECT JOINT/BURSA CPT-4: 37053 07/01/2017 TRIAMCINOLONE ACET INJ NOS CPT-4: J3301 07/01/2017 PRESCRIP TRANSMIT VIA ERX SY CPT-4: G8553 07/01/2017 DRAIN/INJECT JOINT/BURSA CPT-4: 94818 06/17/2017 DRAIN/INJECT JOINT/BURSA CPT-4: 52995 04/02/2017 TRIAMCINOLONE ACET INJ NOS CPT-4: J3301 04/02/2017 DRAIN/INJECT JOINT/BURSA CPT-4: 16087 02/06/2017 ADMIN INFLUENZA VIRUS VAC CPT-4: G0008 12/08/2016 FLU VACC PRSV FREE INC ANTIG CPT-4: 73582 12/08/2016 PRESCRIP TRANSMIT VIA ERX SY CPT-4: G8553 12/08/2016 PRESCRIP TRANSMIT VIA ERX SY CPT-4: G8553 11/17/2016 TRIAMCINOLONE ACET INJ NOS CPT-4: J3301 10/02/2016 TRIAMCINOLONE ACET INJ NOS CPT-4: J3301 09/12/2016 DRAIN/INJECT JOINT/BURSA CPT-4: 31526 09/08/2016 TRIAMCINOLONE ACET INJ NOS CPT-4: J3301 09/08/2016 PRESCRIP TRANSMIT VIA ERX SY CPT-4: G8553 08/26/2016 PRESCRIP TRANSMIT VIA ERX SY CPT-4: G8553 08/18/2016 ADMIN INFLUENZA VIRUS VAC CPT-4: G0008 11/19/2015 FLU VACC PRSV FREE INC ANTIG Formatting Model/CDA Sections, Assigned to/Luanne Elaine CPT-4: 67082Owrunpr 11/19/2015 PRESCRIP TRANSMIT VIA ERX SY CPT-4: G8553 09/04/2015 PRESCRIP TRANSMIT VIA ERX SY CPT-4: G8553 2015 PRESCRIP TRANSMIT VIA ERX SY CPT-4: G8553 07/18/2015 PRESCRIP TRANSMIT VIA ERX SY CPT-4: G8553 07/02/2015 REMOVE IMPACTED EAR WAX UNI CPT-4: 27041 04/09/2015 PRESCRIP TRANSMIT VIA ERX SY CPT-4: G8553 02/08/2015 ADMIN INFLUENZA VIRUS VAC CPT-4: G0008 01/10/2015 FLU VACC PRSV FREE INC ANTIG Formatting Model/CDA Sections, Assigned to/Luanne Elaine CPT-4: 95292Edpqqaf 01/10/2015 ADMIN PNEUMOCOCCAL VACCINE Formatting Model/CDA Sections, Assigned to SNOMED CT: 19964857 CPT-4: J3091Gycmyqf 12/11/2014 PNEUMOCOCCAL VACC [address]: 11108764 CPT-4: 15185 12/11/2014 Vital Signs Date Vital 02/12/2018 Blood [...] Code : 8480-6 BMI: 23.5 Code : 44666-1 Heart Rate 1 : 58 bpm Height: 5'8" SpO2: 96% Weight: 152 lbs 11/30/2017 Blood Pressure 1: 122/70 Code : 8480-6 Heart Rate 1: 105 bpm Height: 5'8" SpO2: 98% Weight: 11/27/2017 Blood Pressure 1: 148/76 Code : 8480-6 Heart Rate 1: 72 bpm Height: 5'8" SpO2: 99% Weight: 11/10/2017 Blood Pressure 1: 130/76 Code : 8480-6 BMI: 27.3 Code : 08613-8 Heart Rate 1 : 98 bpm Height: [...] Code : 8480-6 BMI: 24.7 Code : 73899-9 Heart Rate 1 : 100 bpm Height: 5'8" SpO2: 95% Weight: 160 lbs 08/31/2017 Blood Pressure 1: 128/78 Code : 8480-6 BMI: 23.6 Code : 57200-0 Heart Rate 1 : 102 bpm Height: 5'8" SpO2: 96% Weight: 153 lbs 08/21/2017 Blood Pressure 1: 138/78 Code : 8480-6 Heart Rate 1: 97 bpm SpO2: 95% Weight: 156 lbs 2 oz 08/12/2017 Blood Pressure 1: 138/74 Code : 8480-6 BMI: 25.0 Code : 99551-7 Heart Rate 1 : 94 bpm Height: 5'8" SpO2: 98% Weight: 162 lbs 08/05/2017 Blood Pressure 1: 126/78 Code : 8480-6 BMI: 25.8 Code : 67951-9 Heart Rate 1 : 74 bpm Height: 5'8" SpO2: 96% Weight: 167 lbs 07/23/2017 Blood Pressure 1: 106/64 Code : 8480-6 BMI: 25.3 Code : 92979-1 Heart Rate 1 : 81 bpm Height: 5'8" SpO2: 99% Weight: 163 lbs 14 oz 07/09/2017 Blood Pressure 1: 130/68 Code : 8480-6 Heart Rate 1: 82 bpm Height: 5'8" SpO2: 98% Weight: 07/01/2017 Blood Pressure 1: 124/76 Code : 8480-6 BMI: 26.5 Code : 50868-0 Heart Rate 1 : 99 bpm Height: 5'8" SpO2: 98% Weight: 172 lbs 06/24/2017 Blood Pressure 1: 118/70 Code : 8480-6 Heart Rate 1: 103 bpm Height: 5'8" SpO2: 98% Weight: 06/17/2017 Blood Pressure 1: 110/64 Code : 8480-6 BMI: 25.0 Code : 62053-9 Heart Rate 1 : 73 bpm Height: 5'8" Weight: 162 lbs 06/01/2017 Blood Pressure 1: 158/84 Code : 8480-6 BMI: 24.4 Code : 32364-5 Heart Rate 1 : 94 bpm Height: 5'8" SpO2: 95% Weight: 158 lbs 04/02/2017 Blood Pressure 1: 164/80 Code : 8480-6 BMI: 23.1 Code : 86191-4 Heart Rate 1 : 76 bpm Height: 5'8" SpO2: 94% Weight: 150 lbs 03/12/2017 Blood Pressure 1: 130/74 Code : 8480-6 BMI: 23.0 Code : 66271-5 Heart Rate 1 : 92 bpm Height: 5'8" SpO2: 94% Weight: 149 lbs 02/06/2017 Height: Weight: 01/08/2017 Blood Pressure 1: 136/76 Code : 8480-6 BMI: 21.4 Code : 76147-9 Heart Rate 1 : 85 bpm Height: 5'8" SpO2: 98% Weight: 138 lbs 8 oz 12/08/2016 Blood Pressure 1: 132/66 Code : 8480-6 BMI: 22.2 Code : 71686-2 Heart Rate 1 : 106 bpm Height: 5'8" SpO2: 97% Weight: 144 lbs 11/17/2016 Blood Pressure 1: 146/80 Code : 8480-6 BMI: 22.4 Code : 79133-9 Heart Rate 1 : 100 bpm Height: 5'8" SpO2: 98% Weight: 145 lbs 11/10/2016 Blood Pressure 1: 122/62 Code : 8480-6 BMI: 22.2 Code : 83025-5 Height: 5'8" Weight: 144 lbs 11/05/2016 Blood Pressure 1: 146/80 Code : 8480-6 BMI: 22.2 Code : 58304-1 Heart Rate 1 : 77 bpm Height: 5'8" SpO2: 99% Weight: 144 lbs 10/07/2016 Blood Pressure 1: 132/68 Code : 8480-6 BMI: 22.8 Code : 03504-2 Heart Rate 1 : 90 bpm Height: 5'8" SpO2: 97% Weight: 148 lbs 10/02/2016 Blood Pressure 1: 166/86 Code : 8480-6 BMI: 22.8 Code : 51745-6 Heart Rate 1 : 96 bpm Height: 5'8" SpO2: 96% Weight: 148 lbs 09/12/2016 Blood Pressure 1: 130/86 Code : 8480-6 Height: Weight: 09/08/2016 Blood Pressure 1: 132/74 Code : 8480-6 BMI: 22.4 Code : 38645-1 Heart Rate 1 : 93 bpm Height: 5'8" SpO2: 99% Weight: 145 lbs 08/26/2016 Blood Pressure 1: 132/78 Code : 8480-6 BMI: 23.9 Code : 46634-9 Heart Rate 1 : 80 bpm Height: 5'8" SpO2: 94% Weight: 155 lbs 08/18/2016 Blood Pressure 1: 130/70 Code : 8480-6 BMI: 23.6 Code : 15233-7 Heart Rate 1 : 100 bpm Height: 5'8" SpO2: 94% Weight: 153 lbs 07/30/2016 Blood Pressure 1: 144/84 Code : 8480-6 BMI: 22.4 Code : 38619-3 Heart Rate 1 : 86 bpm Height: 5'8" SpO2: 97% Weight: 145 lbs 07/14/2016 Blood Pressure 1: 122 Code : 8480-6 BMI: 22.5 Code : 27156-3 Heart Rate 1 : 87 bpm Height: 5'8" SpO2: 97% Weight: 146 lbs 07/04/2016 Blood Pressure 1: 128/78 Code : 8480-6 BMI: 22.5 Code : 76134-2 Heart Rate 1 : 98 bpm Height: 5'8" Weight: 146 lbs 06/26/2016 Blood Pressure 1: 122/68 Code : 8480-6 BMI: 22.5 Code : 11042-1 Heart Rate 1 : 102 bpm Height: 5'8" SpO2: 98% Weight: 146 lbs 05/28/2016 Blood Pressure 1: 12268 Code : 8480-6 BMI: 22.4 Code : 66368-3 Heart Rate 1 : 89 bpm Height: 5'8" SpO2: 97% Weight: 145 lbs 03/18/2016 Blood Pressure 1: 132/66 Code : 8480-6 BMI: 22.8 Code : 16062-3 Heart Rate 1 : 96 bpm Height: 5'8" SpO2: 98% Weight: 148 lbs 01/29/2016 Blood Pressure 1: 122/66 Code : 8480-6 BMI: 22.2 Code : 91589-6 Heart Rate 1 : 90 bpm Height: 5'8" SpO2: 99% Weight: 144 lbs 01/01/2016 Blood Pressure 1: 148/82 Code : 8480-6 BMI: 22.5 Code : 95979-0 Heart Rate 1 : 82 bpm Height: 5'8" Weight: 146 lbs 11/19/2015 Blood Pressure 1: 140/74 Code : 8480-6 BMI: 23.7 Code : 89315-3 Heart Rate 1 : 79 bpm Height: 5'8" SpO2: 96% Weight: 153 lbs 8 oz 11/01/2015 Blood Pressure 1: 118/72 Code : 8480-6 Heart Rate 1: 90 bpm Height: 5'8" SpO2: 95% 09/04/2015 Blood Pressure 1: 136/72 Code : 8480-6 BMI: 23.1 Code : 65862-5 Heart Rate 1 : 97 bpm Height: 5'8" SpO2: 98% Weight: 149 lbs 8 oz 2015 Blood Pressure 1: 144/76 Code : 8480-6 BMI: 22.8 Code : 43173-6 Heart Rate 1 : 75 bpm Height: 5'8" SpO2: 97% Weight: 148 lbs 07/18/2015 Blood Pressure 1: 132/60 Code : 8480-6 BMI: 23.1 Code : 42770-4 Heart Rate 1 : 78 bpm Height: 5'8" Weight: 150 lbs 07/02/2015 Blood Pressure 1: 156/86 Code : 8480-6 BMI: 23.0 Code : 12554-7 Heart Rate 1 : 75 bpm Height: 5'8" SpO2: 99% Weight: 149 lbs 05/31/2015 Blood Pressure 1: 136/72 Code : 8480-6 BMI: 22.7 Code : 02673-4 Heart Rate 1 : 85 bpm Height: 5'8" SpO2: 97% Weight: 147 lbs 04/09/2015 Blood Pressure 1: 118/60 Code : 8480-6 BMI: 22.7 Code : 93988-2 Heart Rate 1 : 72 bpm Height: 5'8" SpO2: 95% Weight: 147 lbs 02/08/2015 Blood Pressure 1: 138/76 Code : 8480-6 BMI: 23.1 Code : 24808-6 Heart Rate 1 : 80 bpm Height: 5'8" SpO2: 98% Weight: 150 lbs 12/11/2014 Blood Pressure 1: 120/74 Code : 8480-6 BMI: 22.1 Code : 19933-4 Heart Rate 1 : 92 bpm Height: 5'8" SpO2: 96% Weight: 143 lbs 11/09/2014 Blood Pressure 1: 100/64 Code : 8480-6 BMI: 21.6 Code : 75876-6 Heart Rate 1 : 88 bpm Height: 5'8" Weight: 140 lbs 10/23/2014 Blood Pressure 1: 138/82 Code : 8480-6 BMI: 23.6 Code : 08603-1 Heart Rate 1 : 86 bpm Height: 5'8" Weight: 153 lbs 10/16/2014 Blood Pressure 1: 128/60 Code : 8480-6 BMI: 23.3 Code : 38128-8 Heart Rate 1 : 91 bpm Height: 5'8" SpO2: 99% Weight: 151 lbs 10/09/2014 Blood Pressure 1: 120/60 Code : 8480-6 BMI: 23.0 Code : 68961-2 Heart Rate 1 : 96 bpm Height: 5'8" SpO2: 97% Weight: 149 lbs 09/14/2014 Blood Pressure 1: 132/72 Code : 8480-6 BMI: 22.1 Code : 04534-9 Heart Rate 1 : 84 bpm Height: 5'8" SpO2: 97% Weight: 143 lbs 08/11/2014 Blood Pressure 1: 134/74 Code : 8480-6 BMI: 24.1 Code : 21983-1 Heart Rate 1 : 88 bpm Height: 5'8" Weight: 156 lbs 07/12/2014 Blood Pressure 1: 122/62 Code : 8480-6 BMI: 22.7 Code : 00783-6 Heart Rate 1 : 76 bpm Height: [...] Dr. Blancas in [place] and Neurosur[place] in [place] in the past neck pain Significant Medical Conditions spinal stenosis 07/12/2014 has osteoarthritis Advance Directives No Advance Directive data Encounters Encounter Performer Location Codes Date () [id number] EST. PATIENT, LEVEL III Diagnosis: Cough[ICD10: R05] Diagnosis: Acute bronchitis, unspecified[ICD10: J20.9] Ila Silva MD, [facility] CPT-4: 71804 02/12/2018 ([id number]) 24185 EST. PATIENT, LEVEL IV Diagnosis: Chronic pain syndrome[ICD10: G89.4] Diagnosis: Cough[ICD10: R05] Diagnosis: Diarrhea, unspecified[ICD10: R19.7] Diagnosis: Generalized edema[ICD10: R60.1] Ila Silva MD, [facility] CPT-4: 09557 02/09/2018 ([id number]) 97213 EST. PATIENT, LEVEL III Diagnosis: Generalized edema[ICD10: R60.1] Diagnosis: Lymphedema, not elsewhere classified[ICD10: I89.0] Araceli Silva MD, [facility] CPT-4: 45447 01/14/[id number]) 65214 EST. PATIENT, LEVEL IV Diagnosis: Essential (primary) hypertension[ICD10: I10] Diagnosis: Generalized edema[ICD10: R60.1] Diagnosis: Chronic pain syndrome[ICD10: G89.4] Araceli Silva MD, [facility] CPT-4: 62400 12/24/2017 ([id number]) 19600 EST. PATIENT, LEVEL III Diagnosis: Lymphedema, not elsewhere classified[ICD10: I89.0] Araceli Silva MD, [facility] CPT-4: 79577 11/30/2017 ([id number]) 41550 EST. PATIENT, LEVEL III Diagnosis: Generalized edema[ICD10: R60.1] Ila Silva MD [facility] CPT-4: 46407 11/27/2017 ([id number]) 55438 EST. PATIENT, LEVEL IV Diagnosis: Localized edema[ICD10: [...] left shoulder[ICD10: M25.512] Araceli Silva MD, [facility] CPT-4: 79893 11/10/2017 ([id number]) 90898 EST. PATIENT, LEVEL IV Diagnosis: Localized edema[ICD10: [...] left shoulder[ICD10: M25.512] Araceli Silva MD, [facility] CPT-4: 68443 10/29/2017 ([id number]) 18188 EST. PATIENT, LEVEL IV Diagnosis: Essential (primary) [...] Localized edema[ICD10: R60.0] Araceli Silva MD, [facility] CPT- 4: 92240 10/20/2017 ([id number]) 22505 EST. 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 CPT-4: 49171 09/29/2017 ([id number]) 73214 EST. PATIENT, LEVEL IV Diagnosis: Primary osteoarthritis, left shoulder[ICD10: M19.012] Diagnosis: Pain in left shoulder[ICD10: M25.512] Diagnosis: Lymphedema, not elsewhere classified[ICD10: I89.0] Diagnosis: Localized edema[ICD10: R60.0] Diagnosis: Chronic atrial fibrillation[ICD10: I48.2] Araceli Silva MD, [facility] CPT-4: 66537 09/15/2017 ([id number]) 69213 EST. PATIENT, LEVEL III Diagnosis: Primary osteoarthritis, left shoulder[ICD10: M19.012] Diagnosis: Pain in left shoulder[ICD10: M25.512] Diagnosis: Hemarthrosis, left shoulder[ICD10: M25.012] Araceli Silva MD, [facility] CPT-4: 85940 08/31/2017 ([id number]) 62973 EST. 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 CPT-4: 89645 08/05/2017 ([id number]) 76777 EST. PATIENT, LEVEL III Diagnosis: Localized edema[ICD10: R60.0] Araceli Silva MD, [facility] CPT- 4: 19708 07/23/2017 ([id number]) 83831 EST. PATIENT, LEVEL III Diagnosis: Rheumatoid arthritis without rheumatoid factor, left shoulder[ICD10: M06.012] Diagnosis: Hemarthrosis, left shoulder[ICD10: M25.012] Araceli Silva MD, [facility] CPT-4: 28764 07/09/2017 ([id number]) 83932 EST. PATIENT, LEVEL III Diagnosis: Chronic pain syndrome[ICD10: G89.4] Diagnosis: Rheumatoid arthritis without rheumatoid factor, left shoulder[ICD10: M06.012] Diagnosis: Hemarthrosis, left shoulder[ICD10: M25.012] Diagnosis: Lymphedema, not elsewhere classified[ICD10: I89.0] Araceli Silva MD, [facility] CPT-4: 97500 07/01/2017 ([id number]) 13110 EST. PATIENT, LEVEL III Diagnosis: Chronic pain syndrome[ICD10: G89.4] Araceli Silva MD, [facility] CPT-4: 40546 06/24/2017 ([id number]) 27196 EST. 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 CPT-4: 04183 06/17/2017 72741 EST. PATIENT, LEVEL III Diagnosis: Pain in left shoulder[ICD10: M25.512] Diagnosis: Hemarthrosis, right shoulder[ICD10: M25.011] Diagnosis: Hemarthrosis, left shoulder[ICD10: M25.012] Maricel Silva MD, [facility] CPT-4: 08709 06/01/2017 ([id number]) 86558 EST. PATIENT, LEVEL II Diagnosis: Pain in right shoulder[ICD10: M25.511] Diagnosis: Hemarthrosis, right shoulder[ICD10: M25.011] Araceli Silva MD, [facility] CPT-4: 85991 04/02/2017 ([id number]) 07322 EST. 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 CPT-4: 92321 2017 ([id number]) 05798 EST. 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 CPT- 4: 77988 01/08/2017 ([id number]) 80104 EST. PATIENT, LEVEL IV Diagnosis: Encounter for immunization[ICD10: Z23] Diagnosis: Chronic pain syndrome[ICD10: G89.4] Diagnosis: Essential (primary) hypertension[ICD10: I10] Araceli Silva MD, [facility] CPT-4: 62874 12/08/2016 ([id number]) 85684 EST. PATIENT, LEVEL III Diagnosis: Urge incontinence[ICD10: N39.41] Diagnosis: Chronic pain syndrome[ICD10: G89.4] Diagnosis: Lymphedema, not elsewhere classified[ICD10: I89.0] Araceli Silva MD, [facility] CPT-4: 56786 11/17/2016 85066 EST. 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 CPT-4: 96232 11/10/2016 ([id number]) 53714 EST. PATIENT, LEVEL IV Diagnosis: Essential (primary) hypertension[ICD10: I10] Diagnosis: Other chronic pain[ICD10: G89.29] Diagnosis: Localized edema[ICD10: R60.0] Diagnosis: Urge incontinence[ICD10: N39.41] Araceli Silva MD, [facility] CPT-4: 86995 11/05/2016 ([id number]) 83347 EST. 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 CPT-4: 69659 10/07/2016 ([id number]) 88539 EST. PATIENT, LEVEL III Diagnosis: Hemarthrosis, right shoulder[ICD10: M25.011] Diagnosis: Pain in right shoulder[ICD10: M25.511] Ila Silva MD, [facility] CPT-4: 02289 10/02/2016 81679 EST. PATIENT, LEVEL II Diagnosis: Low back pain[ICD10: M54.5] Diagnosis: Sacroiliitis, not elsewhere classified[ICD10: M46.1] Ila Silva MD, [facility] CPT-4: 31621 09/12/2016 ([id number]) 38726 EST. PATIENT, LEVEL III Diagnosis: Hemarthrosis, right shoulder[ICD10: M25.011] Diagnosis: Other chronic pain[ICD10: G89.29] Araceli Silva MD, [facility] CPT-4: 72979 09/08/2016 ([id number]) 16683 EST. PATIENT, LEVEL IV Diagnosis: Other iron deficiency anemias[ICD10: D50.8] Diagnosis: Vitamin D deficiency, unspecified[ICD10: E55.9] Diagnosis: Hypomagnesemia[ICD10: E83.42] Araceli Silva MD, [facility] CPT- 4: 72396 08/26/2016 ([id number]) 79946 EST. PATIENT, LEVEL III Diagnosis: Localized edema[ICD10: R60.0] Araceli Silva MD, [facility] CPT- 4: 72605 08/18/2016 ([id number]) 40300 EST. 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 CPT- 4: 79341 07/30/2016 [id number] EST. PATIENT, LEVEL IV Diagnosis: Pain in left shoulder[ICD10: M25.512] Diagnosis: Nocturia[ICD10: R35.1] Maricel Silva MD, [facility] CPT-4: 73338 07/14/2016 76212 EST. PATIENT, LEVEL III Diagnosis: Pain in left shoulder[ICD10: M25.512] Maricel Silva MD, [facility] CPT-4: 00160 07/04/2016 ([id number]) 20656 EST. 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 CPT-4: 89043 06/26/2016 ([id number]) 88859 EST. 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 CPT-4: 16547 05/28/2016 ([id number]) 18790 EST. 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 CPT-4: 97752 03/18/2016 ([id number]) 75591 EST. 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 CPT-4: 08476 01/29/2016 ([id number]) 47541 EST. 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 CPT-4: 70225 01/01/2016 ([id number]) 72574 EST. 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 CPT-4: 50503 11/19/2015 63465 EST. PATIENT, LEVEL II Diagnosis: Insect bite (nonvenomous) of right upper arm, initial encounter[ICD10 : S40.861A] Ila Silva MD, [facility] CPT-4: 94567 11/01/2015 ([id number]) 66789 EST. 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 CPT-4: 89653 09/04/2015 ([id number]) 59245 EST. PATIENT, LEVEL III Diagnosis: Contusion of left upper arm, subsequent encounter[ICD10: S40.022D] Araceli Silva MD, [facility] CPT-4: 04906 2015 89947 EST. PATIENT, LEVEL III Diagnosis: Cellulitis of left upper limb[ICD10: L03.114] Maricel Silva MD, [facility] CPT-4: 62153 07/18/2015 ([id number]) 20224 EST. 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 CPT- 4: 74208 07/02/2015 ([id number]) 91432 EST. 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 CPT-4: 97853 05/31/2015 ([id number]) 24810 EST. 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 CPT-4: 79402 04/09/2015 ([id number]) 89476 EST. PATIENT, LEVEL IV Diagnosis: Essential (primary) hypertension[ICD10: I10] Diagnosis: Vitamin D deficiency, unspecified[ICD10: E55.9] Diagnosis: Mixed hyperlipidemia[ICD10: E78.2] Diagnosis: Age-related osteoporosis with current pathological fracture, unspecified site, sequela[ICD10: M80.00XS] Araceli Silva MD, [facility] CPT- 4: 68499 02/08/2015 ([id number]) 77524 EST. PATIENT, LEVEL IV Diagnosis: Essential (primary) hypertension[ICD10: I10] Diagnosis: Localized edema[ICD10: R60.0] Diagnosis: Primary osteoarthritis, unspecified site[ICD10: M19.91] Araceli Silva MD, [facility] CPT-4: 91315 12/11/2014 ([id number]) 22691 EST. PATIENT, LEVEL III Diagnosis: EDEMA[ICD9: 782.3] Diagnosis: ESSENTIAL HYPERTENSION[ICD9: 401.9] Araceli Silva MD, [facility] CPT-4: 00518 11/09/2014 ([id number]) 99597 EST. PATIENT, LEVEL III Diagnosis: Leg pain[ICD9: 729.5] Diagnosis: Ulcer of toe[ICD9: 707.15] Araceli Silva MD, [facility] CPT- 4: 00505 10/23/2014 ([id number]) 78742 EST. PATIENT, LEVEL III Diagnosis: Ulcer of toe[ICD9: 707.15] Araceli Silva MD [facility] CPT- 4: 54531 10/16/2014 85952 EST. PATIENT, LEVEL II Diagnosis: Ulcer of toe[ICD9: 707.15] Ila Silva MD, [facility] CPT-4: 59068 10/09/2014 ([id number]) 28197 EST. PATIENT, LEVEL III Diagnosis: EDEMA[ICD9: 782.3] [facility] CPT-4: 38066 09/14/2014 ([id number]) 58563 EST. PATIENT, LEVEL IV Diagnosis: EDEMA[ICD9: 782.3] Diagnosis: ESSENTIAL HYPERTENSION[ICD9: 401.9] [facility] CPT-4: 57098 08/11/2014 ([id number]) OFFICE VISIT, NEW - LEVEL 4 Diagnosis: HYPERLIPIDEMIA[ICD9: 272.4] Diagnosis: VITAMIN D DEFICIENCY[ICD9: 268.9] Diagnosis: Osteoporosis[ICD9: 733.00] Diagnosis: Esophageal reflux[ICD9: 530.81] Diagnosis: Chronic pain[ICD9: 338.29] [facility] CPT- 4: 80715 07/12/2014 Plan of Care Planned Activity Notes Codes Status Date Visit Plan: Bronchitis - acute case of bronchitis identified. Pt has been given antibiotics, breathing treatments as appropriate, and pt has been instructed to call if symptoms are not improved, or if symptoms acutely worsen. 02/12/2018 Patient Education: Patient Medication Summary Completed 02/12/2018 Visit Plan: Chronic Pain Syndrome - pt has chronic pain - has been maintained on current medications, has not sought out other medications , only uses PRN pain medications as directed, and understands the consequences of over-medication. Ppmjm-uryhbexehz-xtcrbtlh with lasix/metolazone -if swelling /weight increase, okay to increase metolazone to daily as directed Cough- okay for robitussin dm Diarrhea- rx for lomotil written and instructed on use-follow up in 3 weeks, sooner if needed. Call with any concerns. 02/09/2018 Appointment: Ila Kennedy WPtel: [facility] [phone] [place] (30 min) Complex 02/09/2018 Patient Education: Patient Medication Summary Completed 02/09/2018 App[facility]ment: [phone] (15 min) Moderate 02/04/2018 Visit Plan: Edema/Lymphedema [...] of over-medication. 01/14/2018 Appointment: Araceli Silva WPtel: [facility] [place] (15 min) Moderate 01/14/2018 Patient Education: Patient [...] oxycodone scheduled. 12/24/2017 Appointment: Araceli Silva WPtel: [facility] [place] [place] (30 min) Complex 12/24/2017 Patient Education: [...] and output. 11/30/2017 Appointment: Araceli Silva WPtel: [facility] [place] [facility] [place] (15 min) Moderate 11/30/2017 Patient Education: [...] of over-medication. 11/10/2017 Appointment: Araceli Silva WPtel: [address] [place] [address] (15 min) Moderate 11/10/2017 Patient Education: Patient [...] hands/fingers. We will contact [facility] [employer] in [place] for paperwork regarding the scooter. 10/29/2017 Appointment: [phone] [facility] (15 min) Moderate 10/29/2017 Patient Education: Patient [...] time. 10/20/2017 Appointment: [phone] [facility] [place] (30 min) Complex 10/20/2017 Patient Education: [...] drained today. 09/29/2017 Appointment: [phone] [facility] (15 min) Moderate 09/29/2017 Patient Education: Patient [...] Completed 08/21/2017 Appointment: [phone] [facility] [place] (15 min) Moderate 08/20/2017 Visit Plan: Hemarthrosis shoulders - 250mL from left shoulder and 100mL from right shoulder with 1ml kenalog injected into right and left shoulders - Left and right shoulder pain and swelling, swelling into arms and left breast -pt to continue with use of compression sleeves. [id number] sep 2018 bristol 2ml kenalog 08/12/2017 Appointment: [phone] [facility] [place] (15 min) Moderate 08/12/2017 Patient Education: [...] edema. 08/05/2017 Appointment: [phone] [facility] [place] (15 min) Moderate 08/05/2017 Patient Education: [...] peripheral edema. 07/23/2017 Appointment: [phone] [facility] [place] (15 min) Moderate 07/23/2017 Patient Education: [...] on fentanyl - monitor symptoms. 07/09/2017 Appointment: Arcaeli [phone] [facility] [place] (15 min) Moderate 07/09/2017 Patient Education: [...] monitor symptoms. 07/01/2017 Appointment: [facility] [facility] [place] (15 min) Moderate 07/01/2017 Patient Education: Patient Medication Summary Completed 07/01/2017 Visit Plan: Chronic Pain Syndrome - pt has chronic pain - has been maintained on current medications, has not sought out other medications , only uses PRN pain medications as directed, and understands the consequences of over-medication. 06/24/2017 Appointment: [phone] [facility] [place] (15 min) Moderate 06/24/2017 Patient Education: [...] peripheral edema. 06/17/2017 Appointment: Araceli Silva WPtel: [facility] [place] [place] (30 min) Complex 06/17/2017 Patient Education: Patient Medication Summary Completed 06/17/2017 Appointment: Araceli Silva WPtel: [facility] [place] [place] (15 min) Moderate 06/08/2017 Care Plan: Referral Order SNOMED-CT : [id number] Pending 06/02/2017 Visit Plan: Left and right [...] edema. 06/01/2017 Appointment: [phone] [facility] [place] ([place]) Complex 06/01/2017 Patient [...] shoulder 04/02/2017 Appointment: Araceli Silva WPtel: [phone] [facility] (15 min) Moderate 04/02/2017 Patient Education: [...] upset. 03/12/2017 Appointment: [facility] Silva [facility]Ptel: [address] [facility] [place] (15 min) Moderate 03/12/2017 Patient Education: [...] check ROMIE. 01/08/2017 Appointment: Araceli Silva WPtel: [facility] [place]5 [facility]6[address] (15 min) Moderate 01/08/2017 Patient Education: [...] with Remicaide. 12/08/2016 Appointment: Araceli Silva WPtel: [facility] [place]5 [facility]66[facility] (15 min) Moderate 12/08/2016 Patient Education: Patient [...] for now 11/17/2016 Appointment: Araceli Silva WPtel: [facility] [place] [facility] (15 min) Moderate 11/17/2016 Patient Education: [...] of over-medication. 11/10/2016 Appointment: Maricel Gee WPtel: [address] [place] [address] (30 min) Complex 11/10/2016 Patient Education: Patient [...] steroids, immunosuppression. 11/05/2016 Appointment: Araceli Silva WPtel: [address] [place], [place] [phone] (15 min) Moderate 11/05/2016 Patient Education: Patient [...] WPtel: [facility] [place] (15 min) Moderate 10/07/2016 Patient Education: Patient Medication Summary Completed 10/07/2016 Care Plan: Referral Order SNOMED-CT : [id number] Pending 10/07/2016 Care Plan: Referral Order SNOMED-CT : [id number] Pending 10/07/2016 Visit Plan: Hemarthrosis -right shoulder-only able to drain 5ml of bloody drainage-unable to give oral steroids due to recent GI bleed -will give kenalog injection today in the office-discussed getting OSMO patch 10/02/2016 Appointment: Ila Kennedy WPtel: [facility] [place]5 [phone] (30 min) Complex 10/02/2016 Patient Education: Patient Medication Summary Completed 10/02/2016 Appointment: Araceli Silva WPtel: [facility] [place]1 [facility] (15 min) Moderate 09/23/2016 Appointment: Araceli Silva WPtel: [facility] [place]1 [facility]6[address] (15 min) Moderate 09/17/2016 Visit Plan: Sacroiliitis - back exercises discussed with the patient, pt to continue with anti-inflammatories. Pt is to call if the symptoms do not improve or if they worsen. Kenalog injection today in the office. 09/12/2016 Appointment: Ila Kennedy WPtel: [facility] [place] [phone] (15 min) Moderate 09/12/2016 Patient Education: Patient Medication Summary Completed 09/12/2016 Visit Plan: Hemarthrosis - drain right shoulder. Injection of kenalog 1mL - 40mg - [employer] - lot #[id number] , expires oct 2017 Chronic Pain Syndrome [...] WPtel: [facility] [place] [place] (15 min) Moderate 09/08/2016 Patient [...] level 08/26/2016 Appointment: Araceli Silva WPtel: [phone] [facility] (15 min) Moderate 08/26/2016 Patient Education: [...] Summary Completed 08/18/2016 Appointment: Araceli Silva WPtel: [facility] [place]2 [facility] (15 min) Moderate 08/13/2016 Appointment: Araceli Silva WPtel: [facility] [place]0 [facility] (15 min) Moderate 08/06/2016 Visit Plan: [...] daytime. 07/30/2016 Appointment: Araceli Silva WPtel: [facility] [place]7 [facility] [place] (15 min) Moderate 07/30/2016 Patient Education: Patient Medication Summary Completed 07/30/2016 Visit Plan: Left shoulder pain - improving - pt is to notify clinic if symptoms do not improve, if they worsen, or with any questions or concerns. Nocturia - will give samples, pt is to notify clinic if symptoms do not improve. 07/14/2016 Appointment: Maricel Gee WPtel: [phone] [phone] (30 min) Complex 07/14/2016 Patient Education: Patient [...] any dyspnea. 07/04/2016 Appointment: Maricel Gee WPtel: [phone] [facility] (30 min) Complex 07/04/2016 Patient Education: Patient [...] WPtel: [facility] [place]3 [facility] (15 min) Moderate 06/26/2016 Patient Education: [...] WPtel: [facility] [place] [place] (15 min) Moderate 05/28/2016 Patient Education: Patient Medication Summary Completed 05/28/2016 Patient Education: Hypertension Completed 05/28/2016 Appointment: [phone] [place] (15 min) Moderate 05/12/2016 Appointment: [facility] [facility] [place] (15 min) Moderate 04/15/2016 Appointment: [facility]el[facility] [place] (30 min) Complex 03/25/2016 Visit Plan: [...] premarin. 03/18/2016 Appointment: [facility]el[facility] [facility] [place] (30 min) Complex 03/18/2016 Patient Education: Patient Medication Summary Completed 03/18/2016 Appointment: [facility]el[phone] [facility] [place] (15 min) Moderate 02/19/2016 Visit Plan: [...] over-medication. 01/29/2016 Appointment: Araceli Silva WPtel: [address] [facility] [place] (15 min) Moderate 01/29/2016 Patient Education: Patient Medication Summary Completed 01/29/2016 Visit Plan: Discussed MRI of the neck - pt is interested in doing this - however, not prior to changing her medication first to see if this helps her pain 01/01/2016 Appointment: Araceli Silva WPtel: [address] [facility] [place] (15 min) Moderate 01/01/2016 Patient Education: Patient Medication Summary Completed 01/01/2016 Patient Education: Hypertension Completed 01/01/2016 Appointment: Araceli Silva WPtel: [address] [facility] (15 min) Moderate 12/03/2015 Visit Plan: [...] nonhealing. 11/01/2015 Appointment: Ila Kennedy WPtel: [phone] [phone] (15 min) Moderate 11/01/2015 Patient Education: Patient Medication Summary Completed 11/01/2015 Visit Plan: Chronic Pain Syndrome - pt has chronic pain - has been maintained on current medications, has not sought out other medications , only uses PRN pain medications as directed, and understands the consequences of over-medication. Muscle spasms - recommended muscle rub. 09/04/2015 Appointment: Araceli Silva WPtel: [address] [place], [place] [phone] (15 min) Moderate 09/04/2015 Patient Education: Patient Medication Summary Completed 09/04/2015 Visit Plan: Ecchymosis/hematoma - improving - discussed natural progression of hematomas - watchful waiting. 2015 Appointment: Araceli Silva WPtel: [facility] [place]0 [facility]6[address] (15 min) Moderate 2015 Patient Education: Patient Medication Summary Completed 2015 Visit Plan: Cellulitis - continue with oral antibiotics as previously directed, return to clinic as previously directed, call for acute change in symptoms, worsening redness, warmth, discharge. 07/18/2015 Appointment: Ila Kennedy WPtel: [address] [place], [place] [phone] (30 min) Complex 07/18/2015 Patient Education: Patient [...] WPtel: [facility] [place]1 [facility] (15 min) Moderate 07/02/2015 Patient Education: [...] process. 04/09/2015 Appointment: [phone] (15 min) Moderate 04/09/2015 Patient Education: Patient [...] supplementation. 02/08/2015 Appointment: [facility]el[phone] (15 min) Moderate 02/08/2015 Patient Education: Patient [...] the evening. 12/11/2014 Appointment: Araceli Silva WPtel: [address] [place], [place] [address] (15 min) Moderate 12/11/2014 Patient Education: [...] - improved. 11/09/2014 Appointment: Araceli Silva WPtel: [address] [place], [place] [address] (15 min) Moderate 11/09/2014 Patient Education: Patient Medication Summary Completed 11/09/2014 Patient Education: Hypertension Completed 11/09/2014 Visit Plan: Leg pain/cellulitis of leg - start on the doxycycline twice daily - take this x 2 weeks, if the symptoms in your leg/ thigh are not completely resolved, there is a refill that is available. start on a probiotic one pill daily ([employer] or [employer]) this will help prevent the development of a bad type of diarrhea that can occur when taking antibiotics. Ulcer of toe - improving. 10/23/2014 Appointment: Araceli Silva WPtel: [address] [place], [place] [phone] (15 min) Moderate 10/23/2014 Patient Education: Patient Medication Summary Completed 10/23/2014 Visit Plan: Ulcer - keep lesion covered, antibiotic ointment to be used, monitor - call if redness increases or starts streaking up the foot. 10/16/2014 Appointment: [phone] (15 min) Moderate 10/16/2014 Patient Education: Patient [...] edema. 09/14/2014 Appointment: [facility]el[phone] Follow up 09/14/2014 Patient Education: Patient Medication [...] medication. 07/12/2014 Appointment: [facility]el: [phone] [place] (S) New Patient 07/12/2014 Patient Education: [...] despite current pain medications, discussed with Dr. Ricardo - will increase fentanyl patch dose in [...] Injection of kenalog 1mL - 40mg - [employer] - lot #[id number] , expires oct 2017 Chronic Pain Syndrome [...] start on a probiotic one pill daily ([employer] or [employer]) this will help prevent the development of a bad type of diarrhea that can occur when taking antibiotics. . Leg pain/cellulitis of leg - start on the doxycycline twice daily - take this x 2 weeks, if the symptoms in your leg/thigh are not completely resolved, there is a refill that is available. start on a probiotic one pill daily ([employer] or [employer]) this will help prevent the development of [...] hands/fingers. We will contact [employer] in [place] for paperwork regarding the scooter. . Hypertension [...] to continue with use of compression sleeves. [id number] sep 2018 bristol 2ml kenalog . Edema/Lymphedema [...] directed, and understands the consequences of over-medication. Lamlp-qvzxnmtfge-ltrkdcge with lasix/metolazone -if swelling/weight increase, okay to [...] office. two old goats muscle rub from [employer] and home. . Chronic Pain Syndrome - [...]
--- OUTSIDE RECORDS SUMMARY | 2018-06-03 18:11 | XMS REPORT | CCD ---
Author Author [facility] Organization [facility] Address [address] [place] [address] Phone Care Team Providers Care Supervisor Drapery Hanging Name Role Phone PP Unavailable CCM Unavailable Summary Purpose Interface Exchange Insurance Providers Payer name Policy type / Coverage type Covered democrat ID Effective Begin Date Effective End Date [employer] [employer] Medicare Part B [id number] 2017 Unknown AETNA Medicare Part B [id number] Unknown Family history Father Diagnosis Age At [...] Unknown Retired 07/12/[address]: 1251085 Quit over 10 years ago 1967 07/12/2014 [...] ICD-9: 338.4 ICD-10: G89.4 Active 10/07/2016 Unknown Cough ICD-9: 786.2 ICD-10: R05 Active [...] syndrome ICD-9: 338.4 ICD-10: G89.4 10/07/2016 Active Cough ICD-9: 786.2 ICD-10: R05 02/09/2018 [...] Start Date Stop Date Status Fill Instructions Lomotil 2.5 mg-0.025 mg tablet RxNorm: 4372101 1 Tablet(s) PO BID PRN 02/09/2018 No Stop Date Active fentanyl 25 mcg/hr transdermal patch RxNorm: 315863 1 Patch TD Q72H use with 100mcg patch for a total of 125mcg daily 02/09/2018 03/10/2018 Active oxycodone 30 mg tablet RxNorm: 1991986 1/2 Tablet(s) PO Q6 03/14/2018 Active metolazone 10 mg tablet RxNorm: 863300 1 Tablet(s) PO QAM as needed uncontrolled edema 01/14/2018 03/14/2018 Active fentanyl 100 mcg/hr transdermal patch RxNorm: 593801 1 Patch TD Q72H use with 25mcg/hr patch 01/14/2018 02/12/2018 Active fentanyl 25 mcg/hr transdermal patch RxNorm: 248006 1 Patch TD Q72H use with 100mcg patch for a total of 125mcg daily 01/14/2018 02/08/2018 Inactive metolazone 10 mg tablet RxNorm: 855669 1 Tablet(s) PO every other day as needed uncontrolled edema 01/07/2018 01/13/2018 Inactive metolazone 10 mg tablet RxNorm: 656116 1 Tablet(s) PO every other day as needed uncontrolled edema 01/07/2018 01/06/2018 Inactive Cipro 500 mg tablet RxNorm: 021589 1 Tablet(s) PO BID 201701/05/2018 Inactive Cipro 500 mg tablet RxNorm: 615685 1 Tablet(s) PO BID 201701/15/2018 Inactive Cardizem CD 360 mg capsule,extended release RxNorm: 111025 1 Capsule(s) PO daily 01/05/2018 05/04/2018 Active potassium chloride ER 10 mEq tablet,extended release(part/ cryst) RxNorm: 8233690 2 Capsule(s) PO TID when taking lasix 01/05/2018 05/04/2018 Active potassium chloride ER 10 mEq capsule,extended release RxNorm: 760576 Capsule(s) TAKE 1 CAPSULE BY MOUTH TWICE DAILY WHEN TAKING LASIX (FUROSEMIDE) 11/27/2017 No Stop Date Active potassium chloride ER 10 mEq capsule,extended release RxNorm: 573069 Capsule(s) TAKE 1 CAPSULE BY MOUTH TWICE DAILY WHEN TAKING LASIX (FUROSEMIDE) 11/27/2017 11/26/2017 Inactive fentanyl 25 mcg/hr transdermal patch RxNorm: 252167 1 Patch TD Q72H use with 100mcg patch for a total of 125mcg daily 11/27/2017 12/26/2017 Inactive bumetanide 0.5 mg tablet RxNorm: 702230 1 Tablet(s) PO daily 12/23/2017 Inactive in the afternoon x 3 days then as needed per Dr Silva fentanyl 100 mcg/hr transdermal patch RxNorm: 293269 1 Patch TD Q72H use with 25mcg/hr patch 11/27/2017 12/26/2017 Inactive Lasix 20 mg tablet RxNorm: 667877 TAKE 1 TABLET BY MOUTH TWICE DAILY 10/29/2017 No Stop Date Active oxycodone 30 mg tablet RxNorm: 5541146 1/2 Tablet(s) PO Q6 12/27/2017 Inactive fentanyl 100 mcg/hr transdermal patch RxNorm: 748831 1 Patch TD Q72H use with 25mcg/hr patch 10/29/2017 11/26/2017 Inactive fentanyl 25 mcg/hr transdermal patch RxNorm: 951867 1 Patch TD Q72H use with 100mcg patch for a total of 125mcg daily 10/29/2017 11/26/2017 Inactive pantoprazole 40 mg tablet,delayed release RxNorm: 153380 Tablet(s) Take 1 tablet by mouth daily 10/21/2017 04/18/2018 Active - Ref: [id number] potassium chloride ER 10 mEq capsule,extended release RxNorm: 515986 TAKE 1 CAPSULE BY MOUTH TWICE DAILY WHEN TAKING LASIX (FUROSEMIDE) 10/09/2017 11/26/2017 Inactive fentanyl 25 mcg/hr transdermal patch RxNorm: 013902 1 Patch TD Q72H use with 100mcg patch for a total of 125mcg daily 10/01/2017 10/28/2017 Inactive fentanyl 100 mcg/hr transdermal patch RxNorm: 452328 1 Patch TD Q72H use with 25mcg/hr patch 10/01/2017 10/28/2017 Inactive potassium chloride ER 10 mEq tablet,extended release(part/ cryst) RxNorm: 8526862 1 Capsule(s) PO BID when taking lasix 09/22/2017 01/04/2018 Inactive fentanyl 100 mcg/hr transdermal patch RxNorm: 300730 1 Patch TD Q72H use with 25mcg/hr patch 08/31/2017 09/29/2017 Inactive Kenalog 40 mg/mL suspension for injection RxNorm: 3934855 1 Milliliter(s) Inj 08/31/2017 08/31/2017 Inactive fentanyl 25 mcg/hr transdermal patch RxNorm: 709941 1 Patch TD Q72H use with 100mcg patch for a total of 125mcg daily 08/31/2017 09/29/2017 Inactive oxycodone 30 mg tablet RxNorm: 6343459 1/2 Tablet(s) PO Q6 04/201710/28/2017 Inactive cyanocobalamin (vit B-12) 1,000 mcg/mL injection solution RxNorm: 719705 1 Milliliter(s) Inj monthly 08/21/201708/15 Active please provide her with syringe/needle for injection cyanocobalamin (vit B-12) 1,000 mcg/mL injection solution RxNorm: 378103 1 Milliliter(s) Inj monthly 08/21/201708/20 Inactive please provide her with syringe/needle for injection Kenalog 40 mg/mL suspension for injection RxNorm: 5961442 2 Milliliter(s) Inj 1mL in each shoulder 08/21/2017 08/21/2017 Inactive cyanocobalamin (vit B-12) 1,000 mcg/mL injection solution RxNorm: 495226 1 Milliliter(s) Inj monthly 08/21/201708/20 Inactive please provide her with syringe/needle for injection Kenalog 40 mg/mL suspension for injection RxNorm: 1287168 2 Milliliter(s) Inj UD 08/12/2017 08/12/2017 Inactive fentanyl 25 mcg/hr transdermal patch RxNorm: 941234 1 Patch TD Q72H use with 100mcg patch for a total of 125mcg daily 08/05/2017 08/30/2017 Inactive fentanyl 100 mcg/hr transdermal patch RxNorm: 110176 1 Patch TD Q72H use with 25mcg/hr patch 08/05/2017 08/30/2017 Inactive Kenalog 40 mg/mL suspension for injection RxNorm: 9239614 2 Milliliter(s) Inj 1mL per shoulder 08/05/2017 08/05/2017 Inactive clindamycin HCl 150 mg capsule RxNorm: 406201 1 Capsule(s) PO QID Dr Shultz prescribed 07/23/2017 07/29/2017 Inactive prednisone 5 mg tablet RxNorm: 562789 1 Tablet(s) PO daily 11/201707/03/2018 Active fentanyl 25 mcg/hr transdermal patch RxNorm: 526241 1 Patch TD Q72H use with 100mcg patch for a total of 125mcg daily 07/01/2017 07/30/2017 Inactive Lasix 20 mg tablet RxNorm: 790424 1 Tablet(s) PO BID 201710/28/2017 Inactive fentanyl 100 mcg/hr transdermal patch RxNorm: 578329 1 Patch TD Q72H use with 25mcg/hr patch 07/01/2017 07/30/2017 Inactive potassium chloride ER 10 mEq capsule,extended release RxNorm: 900920 1 Capsule(s) PO BID when taking lasix 07/01/20172017 Inactive oxycodone 30 mg tablet RxNorm: 0231234 1/2 Tablet(s) PO Q6 08/22/2017 Inactive fentanyl 100 mcg/hr transdermal patch RxNorm: 264437 1 Patch TD Q72H use with 25mcg/hr patch 05/07/2017 06/05/2017 Inactive fentanyl 25 mcg/hr transdermal patch RxNorm: 999602 1 Patch TD Q72H use with 100mcg patch for a total of 125mcg daily 05/07/2017 06/05/2017 Inactive fentanyl 100 mcg/hr transdermal patch RxNorm: 958422 1 Patch TD Q72H 04/08/2017 05/06/2017 Inactive fentanyl 25 mcg/hr transdermal patch RxNorm: 456304 1 Patch TD Q72H use with 100mcg patch for a total of 125mcg daily 04/08/2017 05/06/2017 Inactive Kenalog 40 mg/mL suspension for injection RxNorm: 9362246 1.5 Milliliter(s) Inj 04/02/2017 04/02/2017 Inactive fentanyl 100 mcg/hr transdermal patch RxNorm: 755388 1 Patch TD Q72H 03/12/2017 04/07/2017 Inactive fentanyl 25 mcg/hr transdermal patch RxNorm: 979821 1 Patch TD Q72H use with 100mcg patch for a total of 125mcg daily 03/12/2017 04/07/2017 Inactive oxycodone 30 mg tablet RxNorm: 7728534 1/2 Tablet(s) PO Q6 09/201704/07/2017 Inactive cyanocobalamin (vit B-12) 1,000 mcg/mL injection syringe RxNorm: 429658 1 Milliliter(s) Inj monthly 02/16/2017 No Stop Date Active please provide with supplys needed for injection fentanyl 100 mcg/hr transdermal patch RxNorm: 553365 1 Patch TD Q72H 02/06/2017 03/07/2017 Inactive Myrbetriq 50 mg tablet,extended release RxNorm: 3712247 1 Tablet(s) PO QPM 12/11/2016 07/22/2017 Inactive oxycodone 30 mg tablet RxNorm: 8366675 1/2 Tablet(s) PO Q6 10/201601/06/2017 Inactive naproxen 500 mg tablet RxNorm: 985416 1 Tablet(s) PO BID Take 1 tablet by mouth two times daily as needed 12/08/201607/08 Inactive - First Attempt Ref: [id number] Myrbetriq 50 mg tablet,extended release RxNorm: 6759268 1 Tablet(s) PO QPM 11/17/2016 12/10/2016 Inactive fentanyl 100 mcg/hr transdermal patch RxNorm: 726786 1 Patch TD Q72H 11/12/2016 12/11/2016 Inactive Vesicare 10 mg tablet RxNorm: 104328 1 Tablet(s) PO QPM 201611/18/2016 Inactive oxycodone 10 mg tablet RxNorm: 0278793 1-2 Tablet(s) PO Q4 PRN as needed to take between 30mg dose if needed for extra pain control 201612/07/2016 Inactive fentanyl 75 mcg/hr transdermal patch RxNorm: 237570 1 TD Q72H 10/22/2016 11/10/2016 Inactive oxycodone 10 mg tablet RxNorm: 0701237 1-2 Tablet(s) PO Q4 PRN as needed to take between 30mg dose if needed for extra pain control 201611/04/2016 Inactive Kenalog 40 mg/mL suspension for injection RxNorm: 7608964 1 Milliliter(s) Inj 10/02/2016 10/02/2016 Inactive Kenalog 40 mg/mL suspension for injection RxNorm: 4335146 1 Milliliter(s) Inj 09/12/2016 09/12/2016 Inactive cyclobenzaprine 5 mg tablet RxNorm: 568305 1 Tablet(s) PO Q8 as needed muscle spasms 09/11/2016 07/22/2017 Inactive prednisone 10 mg tablets in a dose pack RxNorm: 401959 1 Tablet(s) PO UD 09/09/2016 06/23/2017 Inactive potassium chloride ER 10 mEq capsule,extended release RxNorm: 026137 1 Capsule(s) PO BID as needed when taking lasix 08/26/2016 06/30/2017 Inactive Lasix 20 mg tablet RxNorm: 509372 1 Tablet(s) PO BID daily x 10 days then as needed edema 08/26/2016 12/23/2016 Inactive naproxen 500 mg tablet RxNorm: 332404 Take 1 tablet by mouth two times daily as needed 08/18/2016 11/15/2016 Inactive - First Attempt Ref: [id number] Lasix 20 mg tablet RxNorm: 716763 1 Tablet(s) PO QAM daily x 10 days then as needed edema 08/18/2016 08/25/2016 Inactive Vesicare 5 mg tablet RxNorm: 760940 1 Tablet(s) PO QPM 201611/04/2016 Inactive potassium chloride ER 10 mEq capsule,extended release RxNorm: 196220 1 Capsule(s) PO QAM as needed when taking lasix 08/18/2016 08/25/2016 Inactive Myrbetriq 25 mg tablet,extended release RxNorm: 2169864 1 Tablet(s) PO QHS 07/14/2016 07/29/2016 Inactive pantoprazole 40 mg tablet,delayed release RxNorm: 503309 Take 1 tablet by mouth daily 06/30/2016 12/26/2016 Inactive - Ref: [id number] Embeda 20 mg-0.8 mg capsule, extend release, oral only RxNorm: 543285 1 Capsule(s ) PO daily 06/04/2016 06/03/2016 Inactive Embeda 20 mg-0.8 mg capsule, extend release, oral only RxNorm: 422009 1 Capsule(s ) PO daily 06/04/2016 07/01/2016 Inactive oxycodone 10 mg tablet RxNorm: 0371575 1 Tablet(s) PO QID as needed to take between 30mg dose if needed for extra pain control 201606/10/2016 Inactive oxycodone 30 mg tablet RxNorm: 1359378 1 Tablet(s) PO Q6 201611/04/2016 Inactive cyanocobalamin (vit B-12) 1,000 mcg/mL injection solution RxNorm: 217537 1 Milliliter(s) Inj monthly 02/22/201602/15 Inactive she also needs syringes/ needles for this solution QS oxycodone 30 mg tablet RxNorm: 1401156 1 Tablet(s) PO Q6 201503/19/2016 Inactive oxycodone 10 mg tablet RxNorm: 4403292 1 Tablet(s) PO QID as needed to take between 30mg dose if needed for extra pain control 201503/19/2016 Inactive oxycodone 10 mg tablet RxNorm: 1233618 1 Tablet(s) PO QID as needed to take between 30mg dose if needed for extra pain control 201502/18/2016 Inactive oxycodone 30 mg tablet RxNorm: 7878374 1 Tablet(s) PO Q6 201502/18/2016 Inactive pantoprazole 40 mg tablet,delayed release RxNorm: 745338 Take 1 tablet by mouth daily 01/22/2016 06/29/2016 Inactive - First Attempt Ref: [id number] oxycodone 30 mg tablet RxNorm: 1843076 1 Tablet(s) PO Q6 201501/28/2016 Inactive oxycodone 10 mg tablet RxNorm: 1393795 1 Tablet(s) PO QID as needed take between 20mg dose if needed for extra pain control 11/07/2015 12/06/2015 Inactive oxycodone 20 mg tablet RxNorm: 2141256 1 Tablet(s) PO Q6 as needed 11/07/2015 12/31/2015 Inactive doxycycline hyclate 100 mg tablet RxNorm: 352531 1 Tablet(s) PO BID 11/01/2015 11/10/2015 Inactive potassium chloride ER 10 mEq capsule,extended release RxNorm: 565308 1 Capsule(s) PO TIW as needed when taking lasix 09/04/2015 08/17/2016 Inactive Voltaren 1 % topical gel RxNorm: 256538 2 Gram(s) TOP QID 08/2909/03/2015 Inactive pa approved Voltaren 1 % topical gel RxNorm: 240614 2 Gram(s) TOP QID 08/0808/29/2015 Inactive naproxen 500 mg tablet RxNorm: 531495 1 Tablet(s) PO BID 201508/17/2016 Inactive naproxen 500 mg tablet RxNorm: 956177 1 Tablet(s) PO BID 201508/08/2015 Inactive doxycycline hyclate 100 mg tablet RxNorm: 686938 1 Tablet(s) PO BID do not take calcium/vitamin d while on antibiotic 07/18/2015 07/31/2015 Inactive Vitamin D2 50,000 unit capsule RxNorm: 119267 1 Capsule(s) PO QW 07/02/2015 11/18/2015 Inactive Premarin 0.3 mg tablet RxNorm: 455148 1 Tablet(s) PO daily 12/201505/09/2015 Inactive Premarin 0.3 mg tablet RxNorm: 804196 1 Tablet(s) PO daily 12/201503/17/2016 Inactive simvastatin 40 mg tablet RxNorm: 608399 1 Tablet(s) PO daily 03/17/2016 Inactive spironolactone 25 mg tablet RxNorm: 371650 TAKE ONE TABLET BY MOUTH DAILY 05/07/2015 05/27/2016 Inactive potassium chloride ER 10 mEq capsule,extended release RxNorm: 810666 1 Capsule(s) PO TIW as needed when taking lasix 04/17/2015 09/03/2015 Inactive alendronate 70 mg tablet RxNorm: 239192 1 Tablet(s) PO weekly QW 04/17/2015 07/01/2015 Inactive Vitamin D2 50,000 unit capsule RxNorm: 168598 1 Capsule(s) PO QW 03/30/2015 06/27/2015 Inactive Vitamin D2 50,000 unit capsule RxNorm: 455896 1 Capsule(s) PO QW 03/21/2015 03/29/2015 Inactive cyanocobalamin (vit B-12) 1,000 mcg/mL injection solution RxNorm: 551909 1 Milliliter(s) Inj monthly 03/19/201502/20 Inactive cyanocobalamin (vit B-12) 1,000 mcg/mL injection solution RxNorm: 961191 1 Milliliter(s) Inj monthly 03/16/201503/18 Inactive cyanocobalamin (vit B-12) 1,000 mcg/mL injection solution RxNorm: 712776 1 Milliliter(s) Inj monthly 03/16/201503/15 Inactive pantoprazole 40 mg tablet,delayed release RxNorm: 278580 1 Tablet(s) PO daily 03/05/2015 01/21/2016 Inactive Lasix 20 mg tablet RxNorm: 651441 1 Tablet(s) PO TIW as needed edema 02/08/2015 02/02/2016 Inactive oxycodone 10 mg tablet RxNorm: 5374444 1 Tablet(s) PO QID as needed take between 20mg dose if needed for extra pain control 11/09/2014 12/08/2014 Inactive oxycodone 20 mg tablet RxNorm: 5535903 1 Tablet(s) PO Q6 as needed 10/25/2014 11/06/2015 Inactive doxycycline hyclate 100 mg tablet RxNorm: 388459 1 Tablet(s) PO BID 10/23/2014 11/19/2014 Inactive Cipro 500 mg tablet RxNorm: 271061 1 Tablet(s) PO BID 201410/16/2014 Inactive Cipro 500 mg tablet RxNorm: 612361 1 Tablet(s) PO BID 201410/09/2014 Inactive oxycodone 20 mg tablet RxNorm: 3887715 1 Tablet(s) PO Q6 as needed 09/25/2014 10/24/2014 Inactive Lasix 20 mg tablet RxNorm: 921181 1 Tablet(s) PO TIW as needed edema 09/14/2014 01/11/2015 Inactive potassium chloride ER 10 mEq capsule,extended release RxNorm: 538831 1 Capsule(s) PO TIW as needed when taking lasix 09/14/2014 01/11/2015 Inactive doxycycline hyclate 100 mg tablet RxNorm: 369391 1 Tablet(s) PO BID 09/05/2014 09/14/2014 Inactive doxycycline hyclate 100 mg tablet RxNorm: 601692 1 Tablet(s) PO BID 09/05/2014 09/04/2014 Inactive oxycodone 20 mg tablet RxNorm: 7860955 1 Tablet(s) PO Q6 as needed 08/29/2014 09/24/2014 Inactive spironolactone 25 mg tablet RxNorm: 929940 1 Tablet(s) PO daily 08/11/2014 03/08/2015 Inactive oxycodone 20 mg tablet RxNorm: 4060193 1 Tablet(s) PO Q6 as needed 08/02/2014 08/28/2014 Inactive Vitamin D3 2,000 unit tablet RxNorm: 933327 1 Tablet(s) PO daily 07/14/2014 No Stop Date Active Vitamin D2 50,000 unit capsule RxNorm: 910620 1 Capsule(s) PO QW 07/14/2014 10/11/2014 Inactive Vitamin D2 50,000 unit capsule RxNorm: 130747 1 Capsule(s) PO QW 07/14/2014 07/13/2014 Inactive Prolia 60 mg/mL subcutaneous syringe RxNorm: 535211 Milliliter(s) SQ EVERY 6 MONTHS No Start Date Active Carafate 1 gram tablet RxNorm: 602036 1 Tablet(s) PO BID No Start Date Active Miralax oral RxNorm: 078087 oral No Start Date Active Stool Softener oral RxNorm: 40156 oral No Start Date Active Calcium + Vitamin D oral RxNorm: 4018 oral No Start Date Active naproxen 500 mg tablet RxNorm: 472210 1 Tablet(s) PO BID No Start Date 08/05/2015 Inactive oxycodone 20 mg tablet RxNorm: 0407339 1 Tablet(s) PO Q6 as needed No Start Date 08/01/2014 Inactive aspirin 81 mg tablet RxNorm: 431380 1 Tablet(s) PO daily No Start Date 07/22/2017 Inactive simvastatin 40 mg tablet RxNorm: 083468 1 Tablet(s) PO daily No Start Date 05/09/2015 Inactive cyanocobalamin (vit B-12) 1,000 mcg/mL injection syringe RxNorm: 306808 1 Inj monthly No Start Date 02/15/2017 Inactive Reglan 10 mg tablet RxNorm: 522695 1 Tablet(s) PO as needed No Start Date 07/29/2016 Inactive alendronate 70 mg tablet RxNorm: 760670 1 Tablet(s) PO weekly No Start Date 04/16/2015 Inactive Protonix 40 mg tablet,delayed release RxNorm: 506480 1 Tablet(s) PO daily No Start Date 03/04/2015 Inactive cyclobenzaprine 5 mg tablet RxNorm: 979171 1 Tablet(s) PO Q8 as needed muscle spasms No Start Date 09/10/2016 Inactive Vitamin D3 1,000 unit capsule RxNorm: 015937 1 Capsule(s) PO daily No Start Date 07/13/2014 Inactive Cardizem CD 360 mg capsule,extended release RxNorm: 749222 1 Capsule(s) PO daily No Start Date 01/04/2018 Inactive prednisone 10 mg tablets in a dose pack RxNorm: 939654 1 Tablet(s) PO UD No Start Date 09/08/2016 Inactive Medication Administered Medication Codes Instructions Start Date Status Kenalog 40 mg/mL suspension for injection RxNorm: 7379594 1Milliliter 08/31/2017 No longer Active Kenalog 40 mg/mL suspension for injection RxNorm: 3578014 2Milliliter 08/21/2017 No longer Active Kenalog 40 mg/mL suspension for injection RxNorm: 8706919 2MilliliterUD 08/12/2017 No longer Active Kenalog 40 mg/mL suspension for injection RxNorm: 9229186 2Milliliter 08/05/2017 No longer Active Kenalog 40 mg/mL suspension for injection RxNorm: 8265766 1.5Milliliter 04/02/2017 No longer Active Kenalog 40 mg/mL suspension for injection RxNorm: 7038284 1Milliliter 10/02/2016 No longer Active Kenalog 40 mg/mL suspension for injection RxNorm: 5431210 1Milliliter 09/12/2016 No longer Active Immunizations Vaccine Codes Date Status Influenza CVX: 141 12/03/2017 completed Influenza CVX: 141 12/08/2016 completed Influenza CVX: 141 11/19/2015 completed Influenza CVX: 141 01/10/2015 completed Pneumococcal (Adult) CVX: 133 12/11/2014 completed Pneumococcal (Adult) CVX: 133 12/11/2014 completed Assessments Condition Codes Effective Dates Generalized edema ICD-10: R60.1 ICD-9: 782.3 02/09/2018 Cough ICD-10: R05 ICD-9: 786.2 02/09/2018 Diarrhea, unspecified ICD-10: R19.7 ICD-9: 787.91 [...] Visit Effective Dates Notes Hospital Follow Up 02/09/2018 edema 01/14/2018 Hospital [...] Tibc Ord40 Fe-%Sat 21.7 % 10/22/2017 Prealbumin 211702 PREALBUMIN 33 mg/dL 10/21/2017 Comp Metabolic Oji340 NA 134 mEq/L 10/20/2017 Comp Metabolic Wkh953 K 3.7 mEq/L 10/20/2017 Comp Metabolic Bhr774 CL 93 mEq/L 10/20/2017 Comp Metabolic Nzc307 CO2 29.0 mEq/L 10/20/2017 Comp Metabolic Taf177 ANION GAP 16 10/20/2017 Comp Metabolic Mcs225 GLUCOSE 115 mg/dL 10/20/2017 Comp Metabolic Tsn851 Creat 0.8 mg/dL 10/20/2017 Comp Metabolic Ire396 eGFR 73 ml/min/1.73m2 10/20/2017 Comp Metabolic Omh818 BUN 46 mg/dL 10/20/2017 Comp Metabolic Nqf985 B/C Ratio 57.5 Ratio 10/20/2017 Comp Metabolic Bis891 CALCIUM 8.7 mg/dL 10/20/2017 Comp Metabolic Psp476 ALK PHOS 56 U/L 10/20/2017 Comp Metabolic Dlg231 AST(SGOT) 19 U/L 10/20/2017 Comp Metabolic Qrs944 ALT(SGPT) 23 U/L 10/20/2017 Comp Metabolic Kos325 BILI T 0.6 mg/dL 10/20/2017 Comp Metabolic Bzf948 ALBUMIN 4.0 g/dL 10/20/2017 Comp Metabolic Jvl664 TPRO 6.6 g/dL 10/20/2017 Comp Metabolic Pdk145 GLOB 2.7 g/dL 10/20/2017 Comp Metabolic Sgs715 A/G Ratio 1.5 Ratio 10/20/2017 Comp Metabolic Pen501 Osmo 281 mOsmo 10/20/2017 Tsh Ord6 TSH [...] 35.4 pg 10/20/2017 Cbc With Differential Ord2 [place]% 9.9 % 10/20/2017 Cbc With Differential Ord2 [...] 1.15 K/ul 10/20/2017 Cbc With Differential Ord2 [place] ABS# 0.6 K/ul 10/20/2017 Cbc With Differential Ord2 Eos ABS# 0.0 K/ul 10/20/2017 Cbc With Differential Ord2 Baso ABS# 0.0 K/ul 10/20/2017 Iron Ord72 Iron 75 ug/dl 10/20/2017 Romie Reflex Profile [id number] ROMIE (BRYANNA) SCREEN NONE DETECTED 01/12/2017 Comp Metabolic Wer680 NA 129 mEq/L 01/08/2017 Comp Metabolic Pko844 K 3.9 mEq/L 01/08/2017 Comp Metabolic Ozn043 CL 94 mEq/L 01/08/2017 Comp Metabolic Ful411 CO2 31.0 mEq/L 01/08/2017 Comp Metabolic Wlh956 ANION GAP 8 01/08/2017 Comp Metabolic Ykb833 GLUCOSE 103 mg/dL 01/08/2017 Comp Metabolic Opt160 Creat 0.9 mg/dL 01/08/2017 Comp Metabolic Wzu008 eGFR 61 ml/min/1.73m2 01/08/2017 Comp Metabolic Hnq921 BUN 29 mg/dL 01/08/2017 Comp Metabolic Ejv708 B/C Ratio 30.9 Ratio 01/08/2017 Comp Metabolic Vig390 CALCIUM 8.5 mg/dL 01/08/2017 Comp Metabolic Viu636 ALK PHOS 58 U/L 01/08/2017 Comp Metabolic Gvv701 AST(SGOT) 17 U/L 01/08/2017 Comp Metabolic Pqx357 ALT(SGPT) 10 U/L 01/08/2017 Comp Metabolic Dzx731 BILI T 0.4 mg/dL 01/08/2017 Comp Metabolic Mzh004 ALBUMIN 3.0 g/dL 01/08/2017 Comp Metabolic Hzn209 TPRO 5.5 g/dL 01/08/2017 Comp Metabolic Hbw774 GLOB 2.5 g/dL 01/08/2017 Comp Metabolic Viu994 A/G Ratio 1.2 Ratio 01/08/2017 Comp Metabolic Zws434 Osmo 265 mOsmo 01/08/2017 Cbc With Differential [...] 23.3 % 01/08/2017 Cbc With Differential Ord2 [place]% 12.2 % 01/08/2017 Cbc With Differential Ord2 [...] 1.62 K/ul 01/08/2017 Cbc With Differential Ord2 [place] ABS# 0.9 K/ul 01/08/2017 Cbc With Differential [...] 100.3 fl 11/10/2016 Cbc With Differential Ord2 [place]% 9.1 % 11/10/2016 Cbc With Differential Ord2 [...] 0.78 K/ul 11/10/2016 Cbc With Differential Ord2 [place] ABS# 0.5 K/ul 11/10/2016 Cbc With Differential [...] 30.3 pg 10/07/2016 Cbc With Differential Ord2 [place]% 11.8 % 10/07/2016 Cbc With Differential Ord2 [...] 1.54 K/ul 10/07/2016 Cbc With Differential Ord2 [place] ABS# 1.0 K/ul 10/07/2016 Cbc With Differential Ord2 Eos ABS# 0.1 K/ul 10/07/2016 Cbc With Differential Ord2 Baso ABS# 0.0 K/ul 10/07/2016 Comp Metabolic Qvx594 NA 129 mEq/L 08/26/2016 Comp Metabolic Iyp271 K 3.9 mEq/L 08/26/2016 Comp Metabolic Hjb477 CL 93 mEq/L 08/26/2016 Comp Metabolic Hez270 CO2 30.0 mEq/L 08/26/2016 Comp Metabolic Rnr967 ANION GAP 10 08/26/2016 Comp Metabolic Zob075 GLUCOSE 87 mg/dL 08/26/2016 Comp Metabolic Yzj772 Creat 0.6 mg/dL 08/26/2016 Comp Metabolic Umd068 eGFR 96 ml/min/1.73m2 08/26/2016 Comp Metabolic Rui823 BUN 17 mg/dL 08/26/2016 Comp Metabolic Jrg717 B/C Ratio 27.0 Ratio 08/26/2016 Comp Metabolic Jns191 CALCIUM 7.6 mg/dL 08/26/2016 Comp Metabolic Clh417 ALK PHOS 72 U/L 08/26/2016 Comp Metabolic Jja199 AST(SGOT) 20 U/L 08/26/2016 Comp Metabolic Gos244 ALT(SGPT) 12 U/L 08/26/2016 Comp Metabolic Hna985 BILI T 0.3 mg/dL 08/26/2016 Comp Metabolic Zdh081 ALBUMIN 2.7 g/dL 08/26/2016 Comp Metabolic Umu065 TPRO 5.3 g/dL 08/26/2016 Comp Metabolic Wzw718 GLOB 2.6 g/dL 08/26/2016 Comp Metabolic Ipy304 A/G Ratio 1.1 Ratio 08/26/2016 Comp Metabolic Ceu024 Osmo 260 mOsmo 08/26/2016 Cbc With Differential [...] 28.3 pg 08/26/2016 Cbc With Differential Ord2 [place]% 9.6 % 08/26/2016 Cbc With Differential Ord2 [...] 1.83 K/ul 08/26/2016 Cbc With Differential Ord2 [place] ABS# 1.0 K/ul 08/26/2016 Cbc With Differential Ord2 Eos ABS# 0.1 K/ul 08/26/2016 Cbc With Differential Ord2 Baso ABS# 0.0 K/ul 08/26/2016 Magnesium Ord90 Mag 1.9 mg/dL 08/26/2016 Vitamin D 25 Oh Cja0840 VITAMIN D, 25 HYDROXY 34.59 ng/mL Tibc Ord40 Iron 13 ug/dl 08/26/2016 Tibc Ord40 UIBC 283 ug/dL 08/26/2016 Tibc Ord40 TIBC 296 ug/dL 08/26/2016 Tibc Ord40 Fe-%Sat 4.4 % 08/26/2016 Ferritin Ord22 FERRITIN 28.8 ng/mL 08/26/2016 Sed Rate Ord21 ESR 20 mm/hr 11/19/2015 Comp Metabolic Hah641 NA 131 mEq/L 08/22/2015 Comp Metabolic Zqi624 K 4.2 mEq/L 08/22/2015 Comp Metabolic Ttm870 CL 98 mEq/L 08/22/2015 Comp Metabolic Aur117 CO2 27.0 mEq/L 08/22/2015 Comp Metabolic Ifg043 ANION GAP 10 08/22/2015 Comp Metabolic Czk253 GLUCOSE 80 mg/dL 08/22/2015 Comp Metabolic Ukx172 Creat 0.5 mg/dL 08/22/2015 Comp Metabolic Wdg075 eGFR 120 ml/min/1.73m2 08/22/2015 Comp Metabolic Flt258 BUN 13 mg/dL 08/22/2015 Comp Metabolic Ttk373 B/C Ratio 25.0 Ratio 08/22/2015 Comp Metabolic Bmx064 CALCIUM 8.2 mg/dL 08/22/2015 Comp Metabolic Noi046 ALK PHOS 49 U/L 08/22/2015 Comp Metabolic Ruv335 AST(SGOT) 18 U/L 08/22/2015 Comp Metabolic Ahd628 ALT(SGPT) 11 U/L 08/22/2015 Comp Metabolic Cgj635 BILI T 0.5 mg/dL 08/22/2015 Comp Metabolic Fnp569 ALBUMIN 3.5 g/dL 08/22/2015 Comp Metabolic Wob870 TPRO 6.2 g/dL 08/22/2015 Comp Metabolic Aiu870 GLOB 2.7 g/dL 08/22/2015 Comp Metabolic Tra653 A/G Ratio 1.3 Ratio 08/22/2015 Comp Metabolic Xde446 Osmo 262 mOsmo 08/22/2015 Cbc With Differential [...] 32.4 pg 08/22/2015 Cbc With Differential Ord2 [place]% 10.3 % 08/22/2015 Cbc With Differential Ord2 [...] 1.39 K/ul 08/22/2015 Cbc With Differential Ord2 [place] ABS# 0.7 K/ul 08/22/2015 Cbc With Differential Ord2 Eos ABS# 0.1 K/ul 08/22/2015 Cbc With Differential Ord2 Baso ABS# 0.0 K/ul 08/22/2015 Tsh Ord6 hTSH II 2.19 uIU/mL 08/22/2015 Vitamin D 25 Oh Cal6898 VITAMIN D, 25 HYDROXY 55.10 ng/mL Lipid [...] 1.5 Ratio 03/16/2015 Vitamin D 25 Oh Cis7603 VITAMIN D, 25 HYDROXY 28.94 ng/mL Cbc [...] 28.1 pg 03/16/2015 Cbc With Differential Ord2 [place]% 11.2 % 03/16/2015 Cbc With Differential Ord2 [...] 2.37 K/ul 03/16/2015 Cbc With Differential Ord2 [place] ABS# 0.8 K/ul 03/16/2015 Cbc With Differential Ord2 Eos ABS# 0.1 K/ul 03/16/2015 Cbc With Differential Ord2 Baso ABS# 0.0 K/ul 03/16/2015 Cbc With Differential Ord2 New Analyzer Notice Please note new ref ranges starting 03-14-2015 due to implemntation of new five part differential hematolgy analyzer. 03/16/2015 Comp Metabolic Fbf450 NA 131 mEq/L 03/16/2015 Comp Metabolic Sgc677 K 4.1 mEq/L 03/16/2015 Comp Metabolic Tcd775 CL 94 mEq/L 03/16/2015 Comp Metabolic Mrv368 CO2 28.0 mEq/L 03/16/2015 Comp Metabolic Okg943 ANION GAP 13 03/16/2015 Comp Metabolic Ekz564 GLUCOSE 96 mg/dL 03/16/2015 Comp Metabolic Ulh167 Creat 0.7 mg/dL 03/16/2015 Comp Metabolic Wzj758 eGFR 80 ml/min/1.73m2 03/16/2015 Comp Metabolic Ujp046 BUN 16 mg/dL 03/16/2015 Comp Metabolic Aws833 B/C Ratio 21.6 Ratio 03/16/2015 Comp Metabolic Ppd178 CALCIUM 8.9 mg/dL 03/16/2015 Comp Metabolic Ymj394 ALK PHOS 44 U/L 03/16/2015 Comp Metabolic Rhb158 AST(SGOT) 22 U/L 03/16/2015 Comp Metabolic Ggn806 ALT(SGPT) 14 U/L 03/16/2015 Comp Metabolic Jvx186 BILI T 0.5 mg/dL 03/16/2015 Comp Metabolic Bgs842 ALBUMIN 3.4 g/dL 03/16/2015 Comp Metabolic Npp581 TPRO 6.0 g/dL 03/16/2015 Comp Metabolic Rgb228 GLOB 2.6 g/dL 03/16/2015 Comp Metabolic Smt942 A/G Ratio 1.3 Ratio 03/16/2015 Comp Metabolic Inw305 Osmo 264 mOsmo 03/16/2015 Comp Metabolic Nvd458 NA 129 mEq/L 11/09/2014 Comp Metabolic Zgu652 K 4.2 mEq/L 11/09/2014 Comp Metabolic Vkn846 CL 96 mEq/L 11/09/2014 Comp Metabolic Bzt670 CO2 27.0 mEq/L 11/09/2014 Comp Metabolic Jff240 ANION GAP 10 11/09/2014 Comp Metabolic Uvt424 GLUCOSE 144 mg/dL 11/09/2014 Comp Metabolic Dlm675 Creat 0.8 mg/dL 11/09/2014 Comp Metabolic Ctp521 eGFR 73 ml/min/1.73m2 11/09/2014 Comp Metabolic Ekd768 BUN 22 mg/dL 11/09/2014 Comp Metabolic Bfs049 B/C Ratio 27.5 Ratio 11/09/2014 Comp Metabolic Rxx621 CALCIUM 8.6 mg/dL 11/09/2014 Comp Metabolic Hkq750 ALK PHOS 55 U/L 11/09/2014 Comp Metabolic Yuv508 AST(SGOT) 27 U/L 11/09/2014 Comp Metabolic Jqe861 ALT(SGPT) 18 U/L 11/09/2014 Comp Metabolic Swe895 BILI T 0.5 mg/dL 11/09/2014 Comp Metabolic Yyk080 ALBUMIN 3.0 g/dL 11/09/2014 Comp Metabolic Njn463 TPRO 5.4 g/dL 11/09/2014 Comp Metabolic Kse002 GLOB 2.4 g/dL 11/09/2014 Comp Metabolic Vwt553 A/G Ratio 1.3 Ratio 11/09/2014 Comp Metabolic Gvw213 Osmo 265 mOsmo 11/09/2014 Magnesium Ord90 Mag 1.8 mg/dL 11/09/2014 Review of Systems System Result Effective Dates Ears/Nose/Throat/Neck headache 2017 Constitutional recent illness 02/09/2018 [...] affect 09/15/2017 None Full Exam - General 1995 Lymphatic neck nodes Overall: anterior cervical chain [...] Procedures Procedure Codes Date DRAIN/INJECT JOINT/BURSA CPT-4: 75514 08/21/2017 DRAIN/INJECT JOINT/BURSA CPT-4: 16430 08/12/2017 TRIAMCINOLONE ACET INJ NOS CPT-4: J3301 08/12/2017 DRAIN/INJECT JOINT/BURSA CPT-4: 73450 08/05/2017 TRIAMCINOLONE ACET INJ NOS CPT-4: J3301 08/05/2017 DRAIN/INJECT JOINT/BURSA CPT-4: 38418 07/23/2017 DRAIN/INJECT JOINT/BURSA CPT-4: 51645 07/09/2017 TRIAMCINOLONE ACET INJ NOS CPT-4: J3301 07/09/2017 PRESCRIP TRANSMIT VIA ERX SY CPT-4: G8553 07/09/2017 DRAIN/INJECT JOINT/BURSA CPT-4: 01838 07/01/2017 TRIAMCINOLONE ACET INJ NOS CPT-4: J3301 07/01/2017 PRESCRIP TRANSMIT VIA ERX SY CPT-4: G8553 07/01/2017 DRAIN/INJECT JOINT/BURSA CPT-4: 23113 06/17/2017 DRAIN/INJECT JOINT/BURSA CPT-4: 94803 04/02/2017 TRIAMCINOLONE ACET INJ NOS CPT-4: J3301 04/02/2017 DRAIN/INJECT JOINT/BURSA CPT-4: 69703 02/06/2017 ADMIN INFLUENZA VIRUS VAC CPT-4: G0008 12/08/2016 FLU VACC PRSV FREE INC ANTIG CPT-4: 13401 12/08/2016 PRESCRIP TRANSMIT VIA ERX SY CPT-4: G8553 12/08/2016 PRESCRIP TRANSMIT VIA ERX SY CPT-4: G8553 11/17/2016 TRIAMCINOLONE ACET INJ NOS CPT-4: J3301 10/02/2016 TRIAMCINOLONE ACET INJ NOS CPT-4: J3301 09/12/2016 DRAIN/INJECT JOINT/BURSA CPT-4: 41940 09/08/2016 TRIAMCINOLONE ACET INJ NOS CPT-4: J3301 09/08/2016 PRESCRIP TRANSMIT VIA ERX SY CPT-4: G8553 08/26/2016 PRESCRIP TRANSMIT VIA ERX SY CPT-4: G8553 08/18/2016 ADMIN INFLUENZA VIRUS VAC CPT-4: G0008 11/19/2015 FLU VACC PRSV FREE INC ANTIG Formatting Model/CDA Sections, Assigned to/Luanne Elaine CPT-4: 71943Avusulp 11/19/2015 PRESCRIP TRANSMIT VIA ERX SY CPT-4: G8553 09/04/2015 PRESCRIP TRANSMIT VIA ERX SY CPT-4: G8553 2015 PRESCRIP TRANSMIT VIA ERX SY CPT-4: G8553 07/18/2015 PRESCRIP TRANSMIT VIA ERX SY CPT-4: G8553 07/02/2015 REMOVE IMPACTED EAR WAX UNI CPT-4: 93870 04/09/2015 PRESCRIP TRANSMIT VIA ERX SY CPT-4: G8553 02/08/2015 ADMIN INFLUENZA VIRUS VAC CPT-4: G0008 01/10/2015 FLU VACC PRSV FREE INC ANTIG Formatting Model/CDA Sections, Assigned to/CheleAnnamariaa CPT-4: 77018Flyszmv 01/10/2015 ADMIN PNEUMOCOCCAL VACCINE Formatting Model/CDA Sections, Assigned to SNOMED CT: 62740304 CPT-4: B9533Afuuljl 12/11/2014 PNEUMOCOCCAL VACC [address]: 43136827 CPT-4: 81706 12/11/2014 Vital Signs Date Vital 02/09/2018 Blood Pressure 1: 110/62 Code : 8480-6 Heart Rate 1: 96 bpm Height: SpO2: 98% Weight: 01/14/2018 Blood Pressure 1: 120/60 Code : 8480-6 Height: Weight: 161 lbs 12/24/2017 Blood Pressure 1: 115/58 Code : 8480-6 BMI: 23.5 Code : 82558-0 Heart Rate 1 : 58 bpm Height: 5'8" SpO2: 96% Weight: 152 lbs 11/30/2017 Blood Pressure 1: 122/70 Code : 8480-6 Heart Rate 1: 105 bpm Height: 5'8" SpO2: 98% Weight: 11/27/2017 Blood Pressure 1: 148/76 Code : 8480-6 Heart Rate 1: 72 bpm Height: 5'8" SpO2: 99% Weight: 11/10/2017 Blood Pressure 1: 130/76 Code : 8480-6 BMI: 27.3 Code : 01128-8 Heart Rate 1 : 98 bpm Height: [...] Code : 8480-6 BMI: 24.7 Code : 67518-7 Heart Rate 1 : 100 bpm Height: 5'8" SpO2: 95% Weight: 160 lbs 08/31/2017 Blood Pressure 1: 128/78 Code : 8480-6 BMI: 23.6 Code : 32136-2 Heart Rate 1 : 102 bpm Height: 5'8" SpO2: 96% Weight: 153 lbs 08/21/2017 Blood Pressure 1: 138/78 Code : 8480-6 Heart Rate 1: 97 bpm SpO2: 95% Weight: 156 lbs 2 oz 08/12/2017 Blood Pressure 1: 138/74 Code : 8480-6 BMI: 25.0 Code : 64574-9 Heart Rate 1 : 94 bpm Height: 5'8" SpO2: 98% Weight: 162 lbs 08/05/2017 Blood Pressure 1: 126/78 Code : 8480-6 BMI: 25.8 Code : 77777-6 Heart Rate 1 : 74 bpm Height: 5'8" SpO2: 96% Weight: 167 lbs 07/23/2017 Blood Pressure 1: 106/64 Code : 8480-6 BMI: 25.3 Code : 95098-6 Heart Rate 1 : 81 bpm Height: 5'8" SpO2: 99% Weight: 163 lbs 14 oz 07/09/2017 Blood Pressure 1: 130/68 Code : 8480-6 Heart Rate 1: 82 bpm Height: 5'8" SpO2: 98% Weight: 07/01/2017 Blood Pressure 1: 124/76 Code : 8480-6 BMI: 26.5 Code : 20206-5 Heart Rate 1 : 99 bpm Height: 5'8" SpO2: 98% Weight: 172 lbs 06/24/2017 Blood Pressure 1: 118/70 Code : 8480-6 Heart Rate 1: 103 bpm Height: 5'8" SpO2: 98% Weight: 06/17/2017 Blood Pressure 1: 110/64 Code : 8480-6 BMI: 25.0 Code : 12361-4 Heart Rate 1 : 73 bpm Height: 5'8" Weight: 162 lbs 06/01/2017 Blood Pressure 1: 158/84 Code : 8480-6 BMI: 24.4 Code : 57365-7 Heart Rate 1 : 94 bpm Height: 5'8" SpO2: 95% Weight: 158 lbs 04/02/2017 Blood Pressure 1: 164/80 Code : 8480-6 BMI: 23.1 Code : 99168-6 Heart Rate 1 : 76 bpm Height: 5'8" SpO2: 94% Weight: 150 lbs 03/12/2017 Blood Pressure 1: 130/74 Code : 8480-6 BMI: 23.0 Code : 97368-6 Heart Rate 1 : 92 bpm Height: 5'8" SpO2: 94% Weight: 149 lbs 02/06/2017 Height: Weight: 01/08/2017 Blood Pressure 1: 136/76 Code : 8480-6 BMI: 21.4 Code : 20044-0 Heart Rate 1 : 85 bpm Height: 5'8" SpO2: 98% Weight: 138 lbs 8 oz 12/08/2016 Blood Pressure 1: 132/66 Code : 8480-6 BMI: 22.2 Code : 29981-6 Heart Rate 1 : 106 bpm Height: 5'8" SpO2: 97% Weight: 144 lbs 11/17/2016 Blood Pressure 1: 146/80 Code : 8480-6 BMI: 22.4 Code : 33795-5 Heart Rate 1 : 100 bpm Height: 5'8" SpO2: 98% Weight: 145 lbs 11/10/2016 Blood Pressure 1: 122/62 Code : 8480-6 BMI: 22.2 Code : 81836-9 Height: 5'8" Weight: 144 lbs 11/05/2016 Blood Pressure 1: 146/80 Code : 8480-6 BMI: 22.2 Code : 15699-4 Heart Rate 1 : 77 bpm Height: 5'8" SpO2: 99% Weight: 144 lbs 10/07/2016 Blood Pressure 1: 132/68 Code : 8480-6 BMI: 22.8 Code : 58083-5 Heart Rate 1 : 90 bpm Height: 5'8" SpO2: 97% Weight: 148 lbs 10/02/2016 Blood Pressure 1: 166/86 Code : 8480-6 BMI: 22.8 Code : 75027-2 Heart Rate 1 : 96 bpm Height: 5'8" SpO2: 96% Weight: 148 lbs 09/12/2016 Blood Pressure 1: 130/86 Code : 8480-6 Height: Weight: 09/08/2016 Blood Pressure 1: 132/74 Code : 8480-6 BMI: 22.4 Code : 69107-7 Heart Rate 1 : 93 bpm Height: 5'8" SpO2: 99% Weight: 145 lbs 08/26/2016 Blood Pressure 1: 132/78 Code : 8480-6 BMI: 23.9 Code : 28605-0 Heart Rate 1 : 80 bpm Height: 5'8" SpO2: 94% Weight: 155 lbs 08/18/2016 Blood Pressure 1: 130/70 Code : 8480-6 BMI: 23.6 Code : 54057-7 Heart Rate 1 : 100 bpm Height: 5'8" SpO2: 94% Weight: 153 lbs 07/30/2016 Blood Pressure 1: 144/84 Code : 8480-6 BMI: 22.4 Code : 06198-5 Heart Rate 1 : 86 bpm Height: 5'8" SpO2: 97% Weight: 145 lbs 07/14/2016 Blood Pressure 1: 122/74 Code : 8480-6 BMI: 22.5 Code : 07095-4 Heart Rate 1 : 87 bpm Height: 5'8" SpO2: 97% Weight: 146 lbs 07/04/2016 Blood Pressure 1: 12878 Code : 8480-6 BMI: 22.5 Code : 25480-6 Heart Rate 1 : 98 bpm Height: 5'8" Weight: 146 lbs 06/26/2016 Blood Pressure 1: 122/68 Code : 8480-6 BMI: 22.5 Code : 58433-6 Heart Rate 1 : 102 bpm Height: 5'8" SpO2: 98% Weight: 146 lbs 05/28/2016 Blood Pressure 1: 122/68 Code : 8480-6 BMI: 22.4 Code : 19285-7 Heart Rate 1 : 89 bpm Height: 5'8" SpO2: 97% Weight: 145 lbs 03/18/2016 Blood Pressure 1: 132/66 Code : 8480-6 BMI: 22.8 Code : 46320-0 Heart Rate 1 : 96 bpm Height: 5'8" SpO2: 98% Weight: 148 lbs 01/29/2016 Blood Pressure 1: 122/66 Code : 8480-6 BMI: 22.2 Code : 62416-6 Heart Rate 1 : 90 bpm Height: 5'8" SpO2: 99% Weight: 144 lbs 01/01/2016 Blood Pressure 1: 148/82 Code : 8480-6 BMI: 22.5 Code : 27626-4 Heart Rate 1 : 82 bpm Height: 5'8" Weight: 146 lbs 11/19/2015 Blood Pressure 1: 140/74 Code : 8480-6 BMI: 23.7 Code : 91326-9 Heart Rate 1 : 79 bpm Height: 5'8" SpO2: 96% Weight: 153 lbs 8 oz 11/01/2015 Blood Pressure 1: 118/72 Code : 8480-6 Heart Rate 1: 90 bpm Height: 5'8" SpO2: 95% 09/04/2015 Blood Pressure 1: 136/72 Code : 8480-6 BMI: 23.1 Code : 55214-9 Heart Rate 1 : 97 bpm Height: 5'8" SpO2: 98% Weight: 149 lbs 8 oz 2015 Blood Pressure 1: 144/76 Code : 8480-6 BMI: 22.8 Code : 34514-5 Heart Rate 1 : 75 bpm Height: 5'8" SpO2: 97% Weight: 148 lbs 07/18/2015 Blood Pressure 1: 132/60 Code : 8480-6 BMI: 23.1 Code : 31916-4 Heart Rate 1 : 78 bpm Height: 5'8" Weight: 150 lbs 07/02/2015 Blood Pressure 1: 156/86 Code : 8480-6 BMI: 23.0 Code : 14509-0 Heart Rate 1 : 75 bpm Height: 5'8" SpO2: 99% Weight: 149 lbs 05/31/2015 Blood Pressure 1: 136/72 Code : 8480-6 BMI: 22.7 Code : 36859-3 Heart Rate 1 : 85 bpm Height: 5'8" SpO2: 97% Weight: 147 lbs 04/09/2015 Blood Pressure 1: 118/60 Code : 8480-6 BMI: 22.7 Code : 86548-4 Heart Rate 1 : 72 bpm Height: 5'8" SpO2: 95% Weight: 147 lbs 02/08/2015 Blood Pressure 1: 138/76 Code : 8480-6 BMI: 23.1 Code : 69981-2 Heart Rate 1 : 80 bpm Height: 5'8" SpO2: 98% Weight: 150 lbs 12/11/2014 Blood Pressure 1: 120/74 Code : 8480-6 BMI: 22.1 Code : 20966-1 Heart Rate 1 : 92 bpm Height: 5'8" SpO2: 96% Weight: 143 lbs 11/09/2014 Blood Pressure 1: 100/64 Code : 8480-6 BMI: 21.6 Code : 67373-9 Heart Rate 1 : 88 bpm Height: 5'8" Weight: 140 lbs 10/23/2014 Blood Pressure 1: 138/82 Code : 8480-6 BMI: 23.6 Code : 63215-5 Heart Rate 1 : 86 bpm Height: 5'8" Weight: 153 lbs 10/16/2014 Blood Pressure 1: 128/60 Code : 8480-6 BMI: 23.3 Code : 66422-8 Heart Rate 1 : 91 bpm Height: 5'8" SpO2: 99% Weight: 151 lbs 10/09/2014 Blood Pressure 1: 120/60 Code : 8480-6 BMI: 23.0 Code : 35372-3 Heart Rate 1 : 96 bpm Height: 5'8" SpO2: 97% Weight: 149 lbs 09/14/2014 Blood Pressure 1: 132/72 Code : 8480-6 BMI: 22.1 Code : 78912-2 Heart Rate 1 : 84 bpm Height: 5'8" SpO2: 97% Weight: 143 lbs 08/11/2014 Blood Pressure 1: 134/74 Code : 8480-6 BMI: 24.1 Code : 96957-6 Heart Rate 1 : 88 bpm Height: 5'8" Weight: 156 lbs 07/12/2014 Blood Pressure 1: 122/62 Code : 8480-6 BMI: 22.7 Code : 81100-9 Heart Rate 1 : 76 bpm Height: 5'8" Weight: 147 lbs Functional Status No Functional Status data History of Present Illness Symptom Name Status Result Effective Date Notes _ Other: obstipation, electrolyte imbalance, uncontrolled pain [...] Dr. Blancas in [place] and Neurosurgeon in [place] in the past neck pain Significant Medical Conditions spinal stenosis 07/12/2014 has osteoarthritis Advance Directives No Advance Directive data Encounters Encounter Performer Location Codes Date ([id number]) 89600 EST. PATIENT, LEVEL IV Diagnosis: Chronic pain syndrome[ICD10: G89.4] Diagnosis: Cough[ICD10: R05] Diagnosis: Diarrhea, unspecified[ICD10: R19.7] Diagnosis: Generalized edema[ICD10: R60.1] Ila Silva MD, [facility] CPT-4: 97978 02/09/2018 ([id number]) 79320 EST. PATIENT, LEVEL III Diagnosis: Generalized edema[ICD10: R60.1] Diagnosis: Lymphedema, not elsewhere classified[ICD10: I89.0] Araceli Silva MD, [facility] CPT-4: 56526 01/14/2018 ([id number]) 83420 EST. PATIENT, LEVEL IV Diagnosis: Essential (primary) hypertension[ICD10: I10] Diagnosis: Generalized edema[ICD10: R60.1] Diagnosis: Chronic pain syndrome[ICD10: G89.4] Araceli Silva MD, [facility] CPT-4: 72609 12/24/2017 ([id number]) 73755 EST. PATIENT, LEVEL III Diagnosis: Lymphedema, not elsewhere classified[ICD10: I89.0] Araceli Silva MD, [facility] CPT-4: 93609 11/30/2017 ([id number]) 48633 EST. PATIENT, LEVEL III Diagnosis: Generalized edema[ICD10: R60.1] Ila Silva MD, [facility] CPT-4: 14246 11/27/2017 ([id number]) 74709 EST. PATIENT, LEVEL IV Diagnosis: Localized edema[ICD10: [...] in left shoulder[ICD10: M25.512] Araceli Silva MD, [facility] CPT-4: 07150 11/10/2017 [id number]) 30698 EST. PATIENT, LEVEL IV Diagnosis: Localized edema[ICD10: [...] in left shoulder[ICD10: M25.512] Araceli Silva MD, [facility] CPT-4: 82270 10/29/2017 ([id number]) 72214 EST. PATIENT, LEVEL IV Diagnosis: Essential (primary) [...] Diagnosis: Localized edema[ICD10: R60.0] Araceli Silva MD, [facility] CPT- 4: 19171 10/20/2017 ([id number]) 23214 EST. 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 PATIENT, LEVEL IV Diagnosis: Primary osteoarthritis, left shoulder[ICD10: M19.012] Diagnosis: Pain in left shoulder[ICD10: M25.512] Diagnosis: Lymphedema, not elsewhere classified[ICD10: I89.0] Diagnosis: Localized edema[ICD10: R60.0] Diagnosis: Chronic atrial fibrillation[ICD10: I48.2] Araceli Silva MD, [facility] CPT-4: 91262 09/15/2017 ([id number]) 16265 EST. PATIENT, LEVEL III Diagnosis: Primary osteoarthritis, left shoulder[ICD10: M19.012] Diagnosis: Pain in left shoulder[ICD10: M25.512] Diagnosis: Hemarthrosis, left shoulder[ICD10: M25.012] Araceli Silva MD, [facility] CPT-4: 05078 08/31/2017 ([id number]) 44412 EST. 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 PATIENT, LEVEL III Diagnosis: Localized edema[ICD10: R60.0] Araceli Silva MD, [facility] CPT- 4: 44295 07/23/2017 ([id number]) 19599 EST. PATIENT, LEVEL III Diagnosis: Rheumatoid arthritis without rheumatoid factor, left shoulder[ICD10: M06.012] Diagnosis: Hemarthrosis, left shoulder[ICD10: M25.012] Araceli Silva MD, [facility] CPT-4: 06243 07/09/2017 ([id number]) 20718 EST. PATIENT, LEVEL III Diagnosis: Chronic pain syndrome[ICD10: G89.4] Diagnosis: Rheumatoid arthritis without rheumatoid factor, left shoulder[ICD10: M06.012] Diagnosis: Hemarthrosis, left shoulder[ICD10: M25.012] Diagnosis: Lymphedema, not elsewhere classified[ICD10: I89.0] Araceli Silva MD, [facility] CPT-4: 00759 07/01/2017 ([id number]) 02695 EST. PATIENT, LEVEL III Diagnosis: Chronic pain syndrome[ICD10: G89.4] Araceli Silva MD, [facility] CPT-4: 21077 06/24/2017 ([id number]) 42740 EST. 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 PATIENT, LEVEL III Diagnosis: Pain in left shoulder[ICD10: M25.512] Diagnosis: Hemarthrosis, right shoulder[ICD10: M25.011] Diagnosis: Hemarthrosis, left shoulder[ICD10: M25.012] Maricel Silva MD, [facility] CPT-4: 62480 06/01/2017 ([id number]) 84987 EST. PATIENT, LEVEL II Diagnosis: Pain in right shoulder[ICD10: M25.511] Diagnosis: Hemarthrosis, right shoulder[ICD10: M25.011] Araceli Silva MD, [facility] CPT-4: 52449 04/02/2017 ([id number]) 67843 EST. 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 PATIENT, LEVEL IV Diagnosis: Encounter for immunization[ICD10: Z23] Diagnosis: Chronic pain syndrome[ICD10: G89.4] Diagnosis: Essential (primary) hypertension[ICD10: I10] Araceli Silva MD, [facility] CPT-4: 49770 12/08/2016 ([id number]) 27380 EST. PATIENT, LEVEL III Diagnosis: Urge incontinence[ICD10: N39.41] Diagnosis: Chronic pain syndrome[ICD10: G89.4] Diagnosis: Lymphedema, not elsewhere classified[ICD10: I89.0] Araceli Silva MD, [facility] CPT-4: 66450 11/17/2016 [id number] EST. 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 PATIENT, LEVEL IV Diagnosis: Essential (primary) hypertension[ICD10: I10] Diagnosis: Other chronic pain[ICD10: G89.29] Diagnosis: Localized edema[ICD10: R60.0] Diagnosis: Urge incontinence[ICD10: N39.41] Araceli Silva MD, [facility] CPT-4: 92756 11/05/2016 ([id number]) 28990 EST. 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 PATIENT, LEVEL III Diagnosis: Hemarthrosis, right shoulder[ICD10: M25.011] Diagnosis: Pain in right shoulder[ICD10: M25.511] Ila Silva MD, [facility] CPT-4: 62095 10/02/2016 10653 EST. PATIENT, LEVEL II Diagnosis: Low back pain[ICD10: M54.5] Diagnosis: Sacroiliitis, not elsewhere classified[ICD10: M46.1] Ila Silva MD, [facility] CPT-4: 05608 09/12/2016 ([id number]) 47835 EST. PATIENT, LEVEL III Diagnosis: Hemarthrosis, right shoulder[ICD10: M25.011] Diagnosis: Other chronic pain[ICD10: G89.29] Araceli Silva MD, [facility] CPT-4: 18930 09/08/2016 ([id number]) 70149 EST. PATIENT, LEVEL IV Diagnosis: Other iron deficiency anemias[ICD10: D50.8] Diagnosis: Vitamin D deficiency, unspecified[ICD10: E55.9] Diagnosis: Hypomagnesemia[ICD10: E83.42] Araceli Silva MD, [facility] CPT- 4: 18354 08/26/2016 ([id number]) 17780 EST. PATIENT, LEVEL III Diagnosis: Localized edema[ICD10: R60.0] Araceli Silva MD, [facility] CPT- 4: 89016 08/18/2016 ([id number]) [id number] EST. 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 PATIENT, LEVEL IV Diagnosis: Pain in left shoulder[ICD10: M25.512] Diagnosis: Nocturia[ICD10: R35.1] Maricel Silva MD, [facility] CPT-4: 73855 07/14/2016 [id number] EST. PATIENT, LEVEL III Diagnosis: Pain in left shoulder[ICD10: M25.512] Maricel Silva MD, [facility] CPT-4: 37814 07/04/2016 ([id number]) [id number] EST. 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 PATIENT, LEVEL II Diagnosis: Insect bite (nonvenomous) of right upper arm, initial encounter[ICD10 : S40.861A] Ila Silva MD, [facility] CPT-4: 01450 11/01/2015 ([id number]) 44570 EST. 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 PATIENT, LEVEL III Diagnosis: Contusion of left upper arm, subsequent encounter[ICD10: S40.022D] Araceli Silva MD, [facility] CPT-4: 66260 2015 11202 EST. PATIENT, LEVEL III Diagnosis: Cellulitis of left upper limb[ICD10: L03.114] Maricel Silva MD, [facility] CPT-4: 47763 07/18/2015 ([id number]) 19448 EST. 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 PATIENT, LEVEL IV Diagnosis: Essential (primary) hypertension[ICD10: I10] Diagnosis: Vitamin D deficiency, unspecified[ICD10: E55.9] Diagnosis: Mixed hyperlipidemia[ICD10: E78.2] Diagnosis: Age-related osteoporosis with current pathological fracture, unspecified site, sequela[ICD10: M80.00XS] Araceli Silva MD, [facility] CPT- 4: 69856 02/08/2015 [id number]) 29156 EST. PATIENT, LEVEL IV Diagnosis: Essential (primary) hypertension[ICD10: I10] Diagnosis: Localized edema[ICD10: R60.0] Diagnosis: Primary osteoarthritis, unspecified site[ICD10: M19.91] [facility] CPT-4: 71179 12/11/2014 ([id number]) 05899 EST. PATIENT, LEVEL III Diagnosis: EDEMA[ICD9: 782.3] Diagnosis: ESSENTIAL HYPERTENSION[ICD9: 401.9] Araceli Silva MD, [facility] CPT-4: 88389 11/09/2014 ([id number]) 01000 EST. PATIENT, LEVEL III Diagnosis: Leg pain[ICD9: 729.5] Diagnosis: Ulcer of toe[ICD9: 707.15] Araceli Silva MD, [facility] CPT- 4: 51976 10/23/2014 ([id number]) 16658 EST. PATIENT, LEVEL III Diagnosis: Ulcer of toe[ICD9: 707.15] Araceli Silva MD [facility] CPT- 4: 25433 10/16/2014 11187 EST. PATIENT, LEVEL II Diagnosis: Ulcer of toe[ICD9: 707.15] Ila Brent Silva MD, [facility] CPT-4: 66836 10/09/2014 ([id number]) 05992 EST. PATIENT, LEVEL III Diagnosis: EDEMA[ICD9: 782.3] Araceli Silva MD [facility] CPT-4: 84148 09/14/2014 ([id number]) 81117 EST. PATIENT, LEVEL IV Diagnosis: EDEMA[ICD9: 782.3] Diagnosis: ESSENTIAL HYPERTENSION[ICD9: 401.9] Araceli Silva MD, [facility] CPT-4: 83571 08/11/2014 ([id number]) OFFICE VISIT, NEW - LEVEL 4 Diagnosis: HYPERLIPIDEMIA[ICD9: 272.4] Diagnosis: VITAMIN D DEFICIENCY[ICD9: 268.9] Diagnosis: Osteoporosis[ICD9: 733.00] Diagnosis: Esophageal reflux[ICD9: 530.81] Diagnosis: Chronic pain[ICD9: 338.29] Araceli Silva MD, [facility] CPT- 4: 97419 07/12/2014 Plan of Care Planned Activity Notes Codes Status Date Visit Plan: Chronic Pain Syndrome - pt has chronic pain - has been maintained on current medications, has not sought out other medications , only uses PRN pain medications as directed, and understands the consequences of over-medication. Kgzix-kzjkkdhrhq-ecjjsmhg with lasix/metolazone -if swelling /weight increase, okay to increase metolazone to daily as directed Cough- okay for robitussin dm Diarrhea- rx for lomotil written and instructed on use-follow up in 3 weeks, sooner if needed. Call with any concerns. 02/09/2018 Patient Education: Patient Medication Summary Completed 02/09/2018 [phone] [place] ([facility] min) Moderate 02/04/2018 Visit Plan: [...] of over-medication. 01/14/2018 Appointment: Araceli Silva [facility]Ptel: [facility] [place] (15 min) Moderate 01/14/2018 Patient Education: [...] oxycodone scheduled. 12/24/2017 Appointment: Araceli Silva WPtel: [facility] [place] (30 min) Complex 12/24/2017 [...] and output. 11/30/2017 Appointment: Araceli Silva WPtel: [facility] [place] (15 min) Moderate 11/30/2017 Patient Education: [...] of over-medication. 11/10/2017 Appointment: Araceli Silva WPtel: [address] [place], [place] [address] [place] (15 min) Moderate 11/10/2017 Patient Education: [...] hands/fingers. We will contact [employer] in [place] for paperwork regarding the scooter. 10/29/2017 Appointment: [facility] Silva [facility] [phone] [facility] (15 min) Moderate 10/29/2017 Patient [...] this time. 10/20/2017 Appointment: [phone] [facility] [place] (30 min) Complex 10/20/2017 Patient Education: [...] drained today. 09/29/2017 Appointment: Araceli Silva WPtel: [address] [place] [address] (15 min) Moderate 09/29/2017 Patient Education: Patient [...] Completed 08/21/2017 App[facility]ment: [phone] [facility] (15 min) Moderate 08/20/2017 Visit Plan: Hemarthrosis shoulders - 250mL from left shoulder and 100mL from right shoulder with 1ml kenalog injected into right and left shoulders - Left and right shoulder pain and swelling, swelling into arms and left breast -pt to continue with use of compression sleeves. [id number] sep 2018 bristol 2ml kenalog 08/12/2017 App[facility]ment: [facility] Silva [facility] [phone] [facility] (15 min) Moderate 08/12/2017 Patient [...] peripheral edema. 08/05/2017 Appointment: [facility] [phone] [facility] (15 min) Moderate 08/05/2017 Patient [...] peripheral edema. 07/23/2017 Appointment: Araceli Silva WPtel: [facility] [place] (15 min) Moderate 07/23/2017 [...] monitor symptoms. 07/09/2017 Appointment: Araceli Silva WPtel: [facility]5 [facility] [place] (15 min) Moderate 07/09/2017 Patient Education: [...] monitor symptoms. 07/01/2017 Appointment: Araceli Silva WPtel: [facility] [place] (15 min) Moderate 07/01/2017 Patient Education: Patient Medication Summary Completed 07/01/2017 Visit Plan: Chronic Pain Syndrome - pt has chronic pain - has been maintained on current medications, has not sought out other medications , only uses PRN pain medications as directed, and understands the consequences of over-medication. 06/24/2017 Appointment: Araceli Silva WPtel: [address] [place], [place] [phone] (15 min) Moderate 06/24/2017 Patient Education: Patient [...] peripheral edema. 06/17/2017 Appointment: Araceli Silva WPtel: [facility]5 [facility] (30 min) Complex 06/17/2017 Patient Education: Patient Medication Summary Completed 06/17/2017 Appointment: Araceli Silva WPtel: [address] [place], [place] [phone] (15 min) Moderate 06/08/2017 Care Plan: Referral Order SNOMED-CT : 402983672 Pending 06/02/2017 Visit Plan: Left and right [...] edema. 06/01/2017 Appointment: [facility] Gee [phone] [place] (30 min) Complex 06/01/2017 Patient [...] shoulder 04/02/2017 Appointment: [facility] Silva [facility]el[phone] [facility] [place] (15 min) Moderate 04/02/2017 [...] stomach upset. 03/12/2017 Appointment: [facility] Silva [facility]el[facility] [phone] [facility] [place] (15 min) Moderate 03/12/2017 [...] ROMIE. 01/08/2017 Appointment: Araceli Silva WPtel: [phone] [facility] (15 min) Moderate 01/08/2017 Patient Education: Patient [...] Remicaide. 12/08/2016 Appointment: Araceli Silva WPtel: [phone] [facility] (15 min) Moderate 12/08/2016 Patient Education: Patient [...] for now 11/17/2016 Appointment: Araceli Silva WPtel: [facility]0 [facility] [place] (15 min) Moderate 11/17/2016 Patient Education: [...] of over-medication. 11/10/2016 Appointment: Maricel Gee WPtel: [facility]5 [facility] (30 min) Complex 11/10/2016 Patient [...] steroids, immunosuppression. 11/05/2016 Appointment: Araceli Silva WPtel: [facility]2 [facility] (15 min) Moderate 11/05/2016 Patient Education: Patient [...] today. 10/07/2016 Appointment: [facility] Silva [facility]el[phone] [facility] [place] (15 min) Moderate 10/07/2016 Patient Education: Patient Medication Summary Completed 10/07/2016 Care Plan: Referral Order SNOMED-CT : [id number] Pending 10/07/2016 Care Plan: Referral Order SNOMED-CT : [id number] Pending 10/07/2016 Visit Plan: Hemarthrosis -right shoulder-only able to drain 5ml of bloody drainage-unable to give oral steroids due to recent GI bleed -will give kenalog injection today in the office-discussed getting OSMO patch 10/02/2016 Appointment: Ila Kennedy WPtel: [phone] [phone] [place] (30 min) Complex 10/02/2016 Patient Education: Patient Medication Summary Completed 10/02/2016 Appointment: Araceli Silva WPtel: [phone] [facility] [place] (15 min) Moderate 09/23/2016 Appointment: Araceli Silva WPtel: [phone] [facility]66[facility] (15 min) Moderate 09/17/2016 Visit Plan: Sacroiliitis - back exercises discussed with the patient, pt to continue with anti-inflammatories. Pt is to call if the symptoms do not improve or if they worsen. Kenalog injection today in the office. 09/12/2016 Appointment: Ila Kennedy WPtel: [phone] [place] (15 min) Moderate 09/12/2016 Patient Education: Patient Medication Summary Completed 09/12/2016 Visit Plan: Hemarthrosis - drain right shoulder. Injection of kenalog 1mL - 40mg - T3 MOTION - lot #[id number] , expires oct 2017 Chronic Pain Syndrome [...] of over-medication. 09/08/2016 Appointment: Araceli Silva WPtel: [phone] [facility] [place] (15 min) Moderate 09/08/2016 Patient Education: [...] magnesium level 08/26/2016 Appointment: Araceli Silva WPtel: [address] [place], [place] [phone] (15 min) Moderate 08/26/2016 Patient Education: Patient [...] Summary Completed 08/18/2016 Appointment: Araceli Silva WPtel: [address] [place], [place] [phone] (15 min) Moderate 08/13/2016 Appointment: Araceli Silva WPtel: [address] [place] [phone] (15 min) Moderate 08/06/2016 Visit Plan: Chronic [...] the daytime. 07/30/2016 Appointment: Araceli Silva WPtel: [facility]7 [facility] (15 min) Moderate 07/30/2016 Patient Education: Patient Medication Summary Completed 07/30/2016 Visit Plan: Left shoulder pain - improving - pt is to notify clinic if symptoms do not improve, if they worsen, or with any questions or concerns. Nocturia - will give samples, pt is to notify clinic if symptoms do not improve. 07/14/2016 Appointment: Maricel Gee WPtel: [facility] (30 min) Complex 07/14/2016 Patient [...] any dyspnea. 07/04/2016 Appointment: Maricel Gee WPtel: [facility]7 [facility] (30 min) Complex 07/04/2016 Patient [...] over- medication. 06/26/2016 Appointment: Araceli Silva WPtel: [facility]2 [facility] (15 min) Moderate 06/26/2016 Patient Education: Patient [...] over-medication. 05/28/2016 Appointment: [phone] [place] (15 min) Moderate 05/28/2016 Patient Education: Patient Medication Summary Completed 05/28/2016 Patient Education: Hypertension Completed 05/28/2016 App[facility]ment: [phone] [place] (15 min) Moderate 05/12/2016 Appointment: [facility] Silva [facility]el: [phone] [place] (15 min) Moderate 04/15/2016 Appointment: [facility] Silva [facility]Ptel: [phone] [facility] [place] (30 min) Complex 03/25/2016 [...] the premarin. 03/18/2016 Appointment: [facility]: [phone] [place] (30 min) Complex 03/18/2016 Patient Education: Patient Medication Summary Completed 03/18/2016 Appointment: [facility]Ptel: [phone] [facility] [place] (15 min) Moderate 02/19/2016 Visit Plan: [...] over-medication. 01/29/2016 Appointment: Araceli Silva WPtel: [phone] [facility] (15 min) Moderate 01/29/2016 Patient Education: Patient Medication Summary Completed 01/29/2016 Visit Plan: Discussed MRI of the neck - pt is interested in doing this - however, not prior to changing her medication first to see if this helps her pain 01/01/2016 Appointment: Araceli Silva WPtel: [phone] [facility] [place] (15 min) Moderate 01/01/2016 Patient Education: Patient Medication Summary Completed 01/01/2016 Patient Education: Hypertension Completed 01/01/2016 Appointment: Araceli Silva WPtel: [phone] [facility] [place] (15 min) Moderate 12/03/2015 Visit Plan: [...] nonhealing. 11/01/2015 Appointment: Ila Kennedy WPtel: [phone] [phone] (15 min) Moderate 11/01/2015 Patient Education: Patient Medication Summary Completed 11/01/2015 Visit Plan: Chronic Pain Syndrome - pt has chronic pain - has been maintained on current medications, has not sought out other medications , only uses PRN pain medications as directed, and understands the consequences of over-medication. Muscle spasms - recommended muscle rub. 09/04/2015 Appointment: Araceli Silva WPtel: [phone] [facility] (15 min) Moderate 09/04/2015 Patient Education: Patient Medication Summary Completed 09/04/2015 Visit Plan: Ecchymosis/hematoma - improving - discussed natural progression of hematomas - watchful waiting. 2015 Appointment: Araceli Silva WPtel: [facility]1 [facility] (15 min) Moderate 2015 Patient Education: Patient Medication Summary Completed 2015 Visit Plan: Cellulitis - continue with oral antibiotics as previously directed, return to clinic as previously directed, call for acute change in symptoms, worsening redness, warmth, discharge. 07/18/2015 Appointment: Ila Kennedy WPtel: [facility]4 [phone] (30 min) Complex 07/18/2015 Patient Education: Patient [...] center. 07/02/2015 Appointment: Araceli Silva WPtel: [phone] [facility] (15 min) Moderate 07/02/2015 Patient Education: Patient [...] process. 04/09/2015 App[facility]ment: [phone] (15 min) Moderate 04/09/2015 Patient [...] supplementation. 02/08/2015 Appointment: [phone] (15 min) Moderate 02/08/2015 Patient [...] the evening. 12/11/2014 Appointment: Araceli Silva WPtel: [facility]1 [address] (15 min) Moderate 12/11/2014 Patient Education: [...] - improved. 11/09/2014 Appointment: Araceli Silva WPtel: [facility]9 [facility]66[facility] (15 min) Moderate 11/09/2014 Patient Education: Patient Medication Summary Completed 11/09/2014 Patient Education: Hypertension Completed 11/09/2014 Visit Plan: Leg pain/cellulitis of leg - start on the doxycycline twice daily - take this x 2 weeks, if the symptoms in your leg/ thigh are not completely resolved, there is a refill that is available. start on a probiotic one pill daily ([employer] or [employer]) this will help prevent the development of a bad type of diarrhea that can occur when taking antibiotics. Ulcer of toe - improving. 10/23/2014 Appointment: Araceli Silva WPtel: [facility]0 [facility]66[facility] (15 min) Moderate 10/23/2014 Patient Education: Patient Medication Summary Completed 10/23/2014 Visit Plan: Ulcer - keep lesion covered, antibiotic ointment to be used, monitor - call if redness increases or starts streaking up the foot. 10/16/2014 Appointment: [facility] Silva [phone] (15 min) Moderate 10/16/2014 Patient [...] edema. 09/14/2014 Appointment: [facility]el: [phone] Follow up 09/14/2014 Patient Education: [...] medication. 07/12/2014 Appointment: [facility] Silva [facility]el: [phone] [place] (S[facility] New Patient 07/12/2014 [...] Injection of kenalog 1mL - 40mg - T3 MOTION - lot #[id number] , expires oct 2017 Chronic Pain Syndrome [...] start on a probiotic one pill daily ([employer] or Skyfiber) this will help prevent the development of a bad type of diarrhea that can occur when taking antibiotics. . Leg pain/cellulitis of leg - start on the doxycycline twice daily - take this x 2 weeks, if the symptoms in your leg/thigh are not completely resolved, there is a refill that is available. start on a probiotic one pill daily ([employer] Medlle or Skyfiber) this will help prevent the development of [...] severe RA of hands/fingers. We will contact [employer] in [place] for paperwork regarding the scooter. . Hypertension [...] to continue with use of compression sleeves. [id number] sep 2018 bristol 2ml kenalog . Edema/Lymphedema [...] directed, and understands the consequences of over-medication. Skjbs-lxivrrvqoe-cghpciih with lasix/metolazone -if swelling/weight increase, okay to [...] office. two old goats muscle rub from [employer] and home. . Chronic Pain Syndrome - [...]
[2018-06-03] MEDS ORDERED: METOCLOPRAMIDE 10 MG (REGLAN) TAB PO NR (18:15)
[2018-06-03] MEDS: oxyCODONE ER 15 MG (oxyCONTIN CR) TAB PO SCH (19:13)
[2018-06-03 19:21] VITALS: BP 135/81
[2018-06-03] MEDS: GABAPENTIN 100 MG (NEURONTIN) CAP PO SCH (21:17)
[2018-06-04 00:50] VITALS: BP 137/68
[2018-06-04 04:31] VITALS: BP 110/66
--- NOTE | 2018-06-04 05:40 | NUR ---
PT IS HAVING A COLONOSCOPY. STOOL LIQUID AND DARK BROWN. CALLED DR LOVELACE. NEW ORDER TO DO ONE TIME FLEET ENEMA
[2018-06-04] MEDS ORDERED: FLEET ENEMA ADULT 1 EA BTL PR ONE (05:45)
[2018-06-04 08:00] VITALS: BP 110/67
[2018-06-04] MEDS: oxyCODONE ER 15 MG (oxyCONTIN CR) TAB PO SCH (09:33)
[2018-06-04] MEDS: GABAPENTIN 100 MG (NEURONTIN) CAP PO SCH (09:33)
[2018-06-04] MEDS ORDERED: PROPOFOL INJECTION 50 ML IV ONE (10:39)
[2018-06-04] MEDS ORDERED: LACTATED RINGERS 1,000 ML IV ONE (10:40)
[2018-06-04] MEDS ORDERED: LIDOCAINE JELLY 2% 6 ML SYRINGE ONE (10:42)
[2018-06-04] MEDS ORDERED: LIDOCAINE JELLY 2% 6 ML SYRINGE TOP ONE (11:00)
--- NOTE | 2018-06-04 11:48 | Discharge Summary-Hospitalist ---
Diagnosis/Chief Complaint Date of Admission Jun 03, 2018 at 15:06 Date of Discharge Discharge Date: Jun 04, 2018 Discharge Summary Discharge Physical Exam Allergies: Coded Allergies: Penicillins (Verified Allergy, Unknown, 01/25/18) Sulfa (Sulfonamide Antibiotics) (Verified Allergy, Unknown, 01/25/18) Vitals & I&Os Vital Signs Date Time Temp Pulse Resp B/P (MAP) Pulse Ox O2 Delivery O2 Flow Rate FiO2 06/04/18 11:30 79 18 99 Room Air 06/04/18 11:25 10 06/04/18 11:15 97.0 06/04/18 08:00 110/67 (81) General Appearance: No Apparent Distress Respiratory: Chest Non Tender, Lungs Clear, Normal Breath Sounds, No Accessory Muscle Use, No Respiratory Distress Cardiovascular: No Edema, No Gallop, No Murmur, Irregularly Irregular Gastrointestinal: Normal Bowel Sounds, No Organomegaly, No Pulsatile Mass, Non Tender, Soft Hospital Course Due to significant frailty patient was admitted to oversee bowel prep for diagnostic colonoscopy. This was done for rectal bleeding. With a number of phone calls through the night from nursing staff we were able to accommodate the patient for a prep. She required a Fleet's enema, as well. She underwent diagnostic colonoscopy without difficulty. There was noted that she has about 3 cm of rectal prolapse with Valsalva without evidence for hemorrhoids. She had one small adenomatous polyp noted at the distal transverse colon that was biopsied ablated sooner for histopathology. This is pending at the time of this dictation. She had moderate diverticular disease confined to the sigmoid colon and no other upper maladies being noted. We discussed conservative management the use of Desitin and avoiding constipation. For this reason we did switch her calcium supplementation from carbon at the site rates and she has MiraLAX to take on a regular basis. Labs (last 24 hrs) Patient resulted labs reviewed. Discussion & Recommendations Discharge Planning: <30 minutes discharge planning Discharge Home Medications: Active Scripts Active Reported Diphenoxylate-Atrop 2.5-0.025 (Diphenoxylate HCl/Atropine) 1 Each Tablet 1 Tab PO QID PRN Proctozone-Hc (Hydrocortisone) 30 Gm Cream.appl TOP DAILY Ondansetron Odt (Ondansetron) 4 Mg Tab.rapdis 4 Mg PO Q8H PRN Gabapentin 100 Mg Capsule 200 Mg PO TID TAKES 2 (100MG) CAPSULES Vitamin D-3 (Cholecalciferol (Vitamin D3)) 2,000 Unit Capsule 2,000 Unit PO DAILY Voltaren (Diclofenac Sodium) 100 Gm Gel..gram. 4 Gm TP QID PRN Furosemide 40 Mg Tablet 40 Mg PO 0700,1300 Metolazone 10 Mg Tablet 10 Mg PO Q48H Klor-Con M10 (Potassium Chloride) 10 Meq Tab.er.prt 20 Meq PO TID Smoothlax (Polyethylene Glycol 3350) 17 Gm Powd.pack 17 Gm PO DAILY PRN Vitamin C (Ascorbate Calcium) 500 Mg Tablet 500 Mg PO HS Prednisone 5 Mg Tablet 5 Mg PO 1300 Diltiazem 24Hr ER (Diltiazem HCl) 360 Mg Cap.er.24h 360 Mg PO DAILY Calcium 600 + Vit D Caplet (Calcium Carbonate/Vitamin D3) 1 Each Tablet 1 Tab PO BID Cyanocobalamin Injection (Cyanocobalamin) 1,000 Mcg/Ml Inj 1,000 Mcg IJ MONTHLY Oxycodone HCl 30 Mg Tablet 30 Mg PO 0800,1300 Fentanyl Patch 100 MCG (Fentanyl) 1 Each Patch.td72 100 Mcg TD Q72H Pantoprazole Sodium 40 Mg Tablet.dr 40 Mg PO DAILY Prolia (Denosumab) 60 Mg/1 Ml Disp.syrin SQ EVERY 6 MONTHS Instructions to patient/family Please see electronic discharge instructions given to patient. Clinical Quality Measures DVT/VTE Risk/Contraindication: Risk Factor Score Per Nursin RFS Level Per Nursing on Admit: 4+=Very High NELIA LOVELACE MD Jun 04, 2018 11:48
[2018-06-04 12:00] VITALS: BP 129/82
--- NOTE | 2018-06-04 13:40 | NUR ---
CANDACE ANGUIANO demonstrates understanding of discharge instructions and accurately returns instructions upon questioning. Copy of Post-Discharge Instructions and Medication Discharge Instructions given to patient. CANDACE ANGUIANO is able to manage continuing needs after discharge. Patients belongings returned to patient. Skin dry and intact; no breakdown noted. Patient discharged from [facility] on 06/04/18 at 1340 . CANDACE ANGUIANO left floor via wheelchair, accompanied by staff and son-in-law.
--- NOTE | 2018-06-04 14:18 | Anesthesia-General Post-Op ---
MAC Patient Condition Mental Status/LOC: Same as Preop Cardiovascular: Satisfactory Nausea/Vomiting: Absent Respiratory: Satisfactory Pain: Controlled Complications: Absent Post Op Complications Complications None Follow Up Care/Instructions Patient Instructions None needed. Anesthesiology Discharge Order Discharge Order Patient is doing well, no complaints, stable vital signs, no apparent adverse anesthesia problems. No complications reported per nursing. CY VARELA CRNA Jun 04, 2018 14:18
[2018-06-04 14:20] VITALS: BP 129/82
--- NOTE | 2018-06-04 16:11 | OPERATIVE REPORT ---
DATE OF SERVICE: COLONOSCOPY SUMMARY INDICATION FOR THE PROCEDURE: Diagnostic procedure due to rectal bleeding. The patient was placed in the left lateral decubitus position. Prior to undergoing colonoscopy, digital rectal evaluation was performed. Anal sphincter tone was normal and the perianal reflex was intact. No abnormalities were noted on digital inspection of the anal canal or distal rectal vault. With performance of Valsalva maneuver, approximately 3 cm of rectal prolapse is noted. It is easily reducible. The colonoscope was then inserted into the rectum under direct visualization and advanced to the cecum. The cecum was identified by identification of the ileocecal valve and cecal strap. Photographic documentation was obtained. Careful inspection was made as the colonoscope was withdrawn. Quality of prep was suboptimal with what I would guess to be about 10% of the colon not being visualized due to stool. FINDINGS: The distal rectum revealed erythema without significant edema or ulceration. No other rectal abnormalities were noted. A moderate number of small to medium size sigmoid diverticulum were present without evidence for diverticulitis. The descending colon was unremarkable. Present in the distal transverse colon was a 4 to 5 mm sessile adenomatous appearing polyp. It was photographed and biopsied and ablated with no subsequent blood loss. The remainder of the visualized portions of the transverse colon, hepatic flexure, ascending colon and cecum were unremarkable. ASSESSMENT: About 3 cm of rectal prolapse was noted while having the patient perform Valsalva with some distal secondary rectal erythema, the likely source of this patient's intermittent small volume rectal bleeding. Moderate diverticular disease confined to the sigmoid colon was present without evidence for diverticulitis. One 5 mm sessile adenomatous polyp was removed via hot forceps from the distal transverse colon. As long as there are no surprises on histopathology, I will not be abdicating repeat surveillance colonoscopy considering this patient's age and frailty. We did discuss rectal prolapse. She would be a very poor operative candidate and discussed the importance of avoiding constipation. I did take the liberty of switching her from calcium carbonate to calcium citrate with D. Her other medications are continued unchanged in addition to what she believes to be MiraLax that she takes for constipation. I discussed the importance of avoiding straining and using Desitin as needed. Discussed with bowel movements, prolapse will occur, but she can continue to manually reduce the prolapse as she has been doing and she was reassured. I thank you for the referral of this pleasant lady. Sincerely, Job ID: [id number] DocumentID: [id number] Dictated Date: 06/04/2018 11:55:14 Workplace Trainer And Assessor Date: 06/04/2018 16:10:08 Dictated By: NELIA LOVELACE MD [facility]USWei
[2018-06-05] MEDS ORDERED: FENTANYL PATCH REMOVAL TP SCH (08:59)
[2018-06-05] MEDS ORDERED: fentaNYL PATCH 100 MCG (DURAGESIC) TOP SCH (09:00)
== END 2018-06-04 13:40 | disposition home or self-care (01) ==
LOC: 4TH 15:06
PROVIDERS: ADMIT Internal Medicine; ATTEND Internal Medicine
DX: D12.3 Benign neoplasm of transverse colon (principal); K57.30 Diverticulosis of large intestine without perforation or abscess without bleeding; K62.3 Rectal prolapse; K62.5 Hemorrhage of anus and rectum; Z88.0 Allergy status to penicillin; Z88.2 Allergy status to sulfonamides; Z79.899 Other long term (current) drug therapy; I48.91 Unspecified atrial fibrillation; M19.91 Primary osteoarthritis, unspecified site; M06.9 Rheumatoid arthritis, unspecified; I10 Essential (primary) hypertension; E78.2 Mixed hyperlipidemia; Z80.0 Family history of malignant neoplasm of digestive organs

== ENCOUNTER → 2018-08-30 | Outpatient (CLI) | payer MEDICARE, OTHER ==
[~2018-08-30] VITALS: Ht 170.2 cm; Wt 66.9 kg
[~2018-08-30] MED LIST changes: +CHOL20002 PO; +DENOSUMAB 60 MG/1 ML (PROLIA) SQ ONE; +DIPH1TAB25 PO; +GABA-486 PO; +HYDR30CR69 TOP; +ONDA4TAB11 PO
[2018-08-30 13:20] VITALS: BP 122/68
== END ==
LOC: SDC 13:03
PROVIDERS: ATTEND Nurse Practitioner Family
DX: M81.0 Age-related osteoporosis without current pathological fracture (principal); Z79.899 Other long term (current) drug therapy
CPT/HCPCS: 96372

== ENCOUNTER 2018-12-02 14:35 | Inpatient (IN) | payer MEDICARE, OTHER ==
[~2018-12-02] VITALS: Ht 172 cm; Wt 74.0 kg
[~2018-12-02 14:35] MED LIST changes: -BUME0.5T3 PO; +BUME0.5T5 PO; -DENOSUMAB 60 MG/1 ML (PROLIA) SQ ONE
--- NOTE | 2018-12-02 14:37 | NUR ---
UNABLE TO DO STROKE SCALE AT THIS X. PT UNRESPONSIVE
[2018-12-02] MEDS ORDERED: LORazepam INJ 2 MG/ML (ATIVAN) VIAL ONE (14:49)
[2018-12-02 14:53] LABS: BASOPHILS % (AUTO) 0 % (0-10); EOSINOPHILS % (AUTO) 0 % (0-10); HEMATOCRIT 41 % (35-52); HEMOGLOBIN 13.7 G/DL (11.5-16.0); LYMPHOCYTES # (AUTO) 0.6 X 10^3 (1.0-4.0); LYMPHOCYTES % (AUTO) 6 % (12-44); MEAN CORPUSCULAR HEMOGLOBIN 33 PG (25-34); MEAN CORPUSCULAR HGB CONC 33 G/DL (32-36); MEAN CORPUSCULAR VOLUME 100 FL (80-99); MEAN PLATELET VOLUME 9.4 FL (7.4-10.4); MONOCYTES # (AUTO) 0.7 X 10^3 (0.0-1.0); MONOCYTES % (AUTO) 6 % (0-12); NEUTROPHILS # (AUTO) 9.8 X 10^3 (1.8-7.8); NEUTROPHILS % (AUTO) 88 % (42-75); PLATELET COUNT 245 10^3/uL (130-400); RED CELL DISTRIBUTION WIDTH 14.2 % (10.0-14.5); WHITE BLOOD COUNT 11.2 10^3/uL (4.3-11.0)
--- NOTE | 2018-12-02 14:53 | ED Neurological Problem ---
General Stated Complaint: STROKE LIKE SYMPTOMS Source: patient Exam Limitations: no limitations History of Present Illness Date Seen by Provider: Dec 02, 2018 Time Seen by Provider: 14:49 Initial Comments To ER per EMS from home with strokelike symptoms. Her last known well time was at 8 AM this morning. She was found by her son on the floor leaning up against the cabinets with a bloody right arm and altered mental status just prior to arrival. EMS found a 100 g per hour fentanyl patch and the medication list including oxycodone. She was given between 1 and [address]arcan on the way to the hospital. Blood glucose was 216. She seems to have right-sided facial droop, she is nonverbal, grunting on arrival. Timing/Duration: other Severity: moderate Allergies and Home Medications Allergies Coded Allergies: Penicillins (Verified Allergy, Unknown, 01/25/18) Sulfa (Sulfonamide Antibiotics) (Verified Allergy, Unknown, 01/25/18) Patient Home Medication List Home Medication List Reviewed: Yes Review of Systems Review of Systems Constitutional: see HPI (unable to obtain) Past [id number]-Hbkicn Hx Patient Social History Alcohol Beverage of Choice: Camilla, Wine Type Used: Cigarettes Former Smoker, Quit: Dec 05, 1961 2nd Hand Smoke Exposure: No Recent Hopitalizations: Yes (November last year) Immunizations Up To Date Tetanus Booster (TDap): Unknown PED Vaccines UTD: No Date of Pneumonia Vaccine: Mar 02, 2014 Date of Influenza Vaccine: Dec 06, 2017 Seasonal Allergies Seasonal Allergies: No Past Medical History Surgeries: Yes Appendectomy, Breast, Eye Surgery, Joint Replacement, Orthopedic Respiratory: No Currently Using CPAP: No Currently Using BIPAP: No Cardiac: Yes (A-Fib dx this year) High Cholesterol, Hypertension Neurological: No Neuropathy, Spinal Cord Injury Reproductive Disorders: No Female Reproductive Disorders: Denies DIGITAL SPECIALIST History: Menopausal Sexually Transmitted Disease: No HIV/AIDS: No Genitourinary: Yes (difficulty getting stream started) Bladder Infection Gastrointestinal: Yes (passing large amount of stool and has not control) Hemorrhoids, Chronic Diarrhea Musculoskeletal: Yes Osteoporosis, Arthritis, Rheumatoid Arthritis Endocrine: No HEENT: Yes Cataract Loss of Vision: Denies Hearing Impairment: Hard of Hearing Cancer: No Psychosocial: No Integumentary: No Blood Disorders: No Adverse Reaction/Blood Tranf: No Family Medical History Heart Disease, Hypertension Physical Exam Vital Signs Vital Signs - First Documented 12/02/18 14:37 Temp 36.9 Pulse 137 Resp 30 B/P (MAP) 174/102 (126) Pulse Ox 89 O2 Delivery Nasal Cannula O2 Flow Rate 2.00 Capillary Refill : Height, Weight, BMI Height: 5'7.00" Weight: 147lbs. 9.0oz. 66.997236os; 23.1 BMI Method:Stated General Appearance: WD/WN, other (patient cannot participate in the NIH stroke scale. She is nonverbal keeps her eyes closed. The right side of her mouth does seem to be a bit drooped, she does move all extremities however. She is tachypneic and grunting on arrival with intermittent yawning. Have concerns she will need intubated soon. ) HEENT: PERRL/EOMI, normal ENT inspection Neck: non-tender, full range of motion Respiratory: lungs clear, no accessory muscle use Cardiovascular: irregularly irregular (tachycardic at 130 atrial fibrillation with no anticoagulant use on her home medication sheet) Gastrointestinal: normal bowel sounds, non tender, soft Extremities: normal capillary refill, other (skin tear as above) Neurologic/Psychiatric: alert, normal mood/affect Skin: normal color, warm/dry, other (very large skin tear to the posterior lateral right upper arm) Progress/Results/Core Measures Results/Orders Lab Results Laboratory Tests Test 12/02/18 14:48 12/02/18 15:34 12/02/18 15:35 Range/Units White Blood Count 11.2 H 4.3-11.0 10^3/uL Red Blood Count 4.13 L 4.35-5.85 10^6/uL Hemoglobin 13.7 11.5-16.0 G/DL Hematocrit 41 35-52 % Mean Corpuscular Volume 100 H 80-99 FL Mean Corpuscular Hemoglobin 33 25-34 PG Mean Corpuscular Hemoglobin Concent 33 32-36 G/DL Red Cell Distribution Width 14.2 10.0-14.5 % Platelet Count 245 130-400 10^3/uL Mean Platelet Volume 9.4 7.4-10.4 FL Neutrophils (%) (Auto) 88 H 42-75 % Lymphocytes (%) (Auto) 6 L 12-44 % Monocytes (%) (Auto) 6 0-12 % Eosinophils (%) (Auto) 0 0-10 % Basophils (%) (Auto) 0 0-10 % Neutrophils # (Auto) 9.8 H 1.8-7.8 X 10^3 Lymphocytes # (Auto) 0.6 L 1.0-4.0 X 10^3 Monocytes # (Auto) 0.7 0.0-1.0 X 10^3 Eosinophils # (Auto) 0.0 0.0-0.3 10^3/uL Basophils # (Auto) 0.0 0.0-0.1 10^3/uL Neutrophils % (Manual) 93 % Lymphocytes % (Manual) 5 % Monocytes % (Manual) 2 % Eosinophils % (Manual) 0 % Basophils % (Manual) 0 % Band Neutrophils 0 % Blood Morphology Comment NORMAL Sodium Level 138 135-145 MMOL/L Potassium Level 4.5 3.6-5.0 MMOL/L Chloride Level 99 98-107 MMOL/L Carbon Dioxide Level 27 21-32 MMOL/L Anion Gap 12 5-14 MMOL/L Blood Urea Nitrogen 29 H 7-18 MG/DL Creatinine 1.00 0.60-1.30 MG/DL Estimat Glomerular Filtration Rate 53 BUN/Creatinine Ratio 29 Glucose Level 226 H 70-105 MG/DL Calcium Level 9.1 8.5-10.1 MG/DL Corrected Calcium 9.0 8.5-10.1 MG/DL Total Bilirubin 0.6 0.1-1.0 MG/DL Aspartate Amino Transf (AST/SGOT) 18 5-34 U/L Alanine Aminotransferase (ALT/SGPT) 19 0-55 U/L Alkaline Phosphatase 79 40-136 U/L Troponin I < 0.028 <0.028 NG/ML Total Protein 7.5 6.4-8.2 GM/DL Albumin 4.1 3.2-4.5 GM/DL Prothrombin Time 12.1 L 12.2-14.7 SEC INR Comment 0.9 0.8-1.4 Activated Partial Thromboplast Time 25 24-35 SEC D-Dimer 1.55 H 0.00-0.49 UG/ML Urine Color YELLOW Urine Clarity CLEAR Urine pH 5 5-9 Urine Specific [place] 1.010 L 1.016-1.022 Urine Protein 1+ H NEGATIVE Urine Glucose (UA) NEGATIVE NEGATIVE Urine Ketones NEGATIVE NEGATIVE Urine Nitrite NEGATIVE NEGATIVE Urine Bilirubin NEGATIVE NEGATIVE Urine Urobilinogen NORMAL NORMAL MG/DL Urine Leukocyte Esterase NEGATIVE NEGATIVE Urine RBC (Auto) NEGATIVE NEGATIVE Urine RBC RARE /HPF Urine WBC NONE /HPF Urine Squamous Epithelial Cells RARE /HPF Urine Crystals PRESENT H /LPF Urine Amorphous Sediment RARE DEYSI URATES H /LPF Urine Bacteria NEGATIVE /HPF Urine Casts PRESENT /LPF Urine Hyaline Casts 5-10 H /LPF Urine Mucus NEGATIVE /LPF Urine Culture Indicated NO My Orders Orders - ALEXEY DOLAN APRN I-Stat Bedside Testing (12/02/18 15:02) Fentanyl Injection (Sublimaze Injection (12/02/18 15:09) Fentanyl Injection (Sublimaze Injection (12/02/18 15:15) Lorazepam Injection (Ativan Injection) (12/02/18 15:15) Fentanyl Injection (Sublimaze Injection (12/02/18 15:15) Fentanyl Injection (Sublimaze Injection (12/02/18 15:30) Ct Angio Head/Neck (12/02/18 15:29) Ns Iv 500 Ml (Sodium Chloride 0.9%) (12/02/18 15:30) Metoprolol Tartrate Injection (Lopressor (12/02/18 16:00) Iohexol Injection (Omnipaque 350 Mg/Ml 1 (12/02/18 16:00) Received Contrast (Hold Metformin- Contr (12/02/18 16:00) Ns (Ivpb) (Sodium Chloride 0.9% Ivpb Bag (12/02/18 16:00) Fentanyl Injection (Sublimaze Injection (12/02/18 16:45) Fentanyl Patch (Duragesic Patch) (12/02/18 16:45) Medications Given in ED Vital Signs/I&O 12/02/18 12/02/18 12/02/18 14:37 14:37 17:24 Temp 36.9 Pulse 137 83 Resp 30 18 B/P (MAP) 174/102 (126) 151/89 Pulse Ox 89 100 100 O2 Delivery Nasal Cannula O2 Flow Rate 2.00 12/03/18 00:00 Intake Total 500 ml Balance 500 ml Diagnostic Imaging Diagonstic Imaging: Xray Comments NAME: FERNANDO ANGUIANO Tere MED REC#: [id number] PT STATUS: REG ER : 1935 PHYSICIAN: NELIA ESCOBEDO MD ADMIT DATE: 12/02/18/ER Draft Date of Exam:12/02/18 CT HEAD/CERVICAL SPINE WO PROCEDURE: CT head and CT cervical spine without contrast. TECHNIQUE: Multiple contiguous axial images were obtained through the brain and cervical spine without the use of intravenous contrast. Sagittal and coronal reformations through the cervical spine were then performed. Auto Exposure Controls were utilized during the CT exam to meet ALARA standards for radiation dose reduction. INDICATION: Fell, head and neck pain. CT OF THE HEAD: There are no prior CT head examinations available for comparison. This study is less than optimal due to motion artifact. There is no mass, shift of the midline, or hemorrhage to suggest an acute intracranial abnormality. The ventricles are not abnormally dilated. There are vague areas of low density in the periventricular white matter bilaterally. These findings are nonspecific but may be secondary to encephalomalacia from microvascular ischemia. There is also cortical atrophy present. The degree of atrophy is consistent with the patient's age. The orbits are symmetrical and within normal limits. The sinuses are generally clear. IMPRESSION: There is no evidence for an acute intracranial abnormality. However, this exam is limited due to motion artifact. If clinical concern regarding an underlying abnormality persists, then repeat CT head exam should be obtained if the patient can be safely sedated. CT CERVICAL SPINE: This exam is limited due to motion artifact. There are no previous CT cervical spine examinations available for comparison. The MRI cervical spine exam of 02/17/2014 noted severe degenerative disc and bony disease at C4-C5, C5-C6, and C6-C7. Those findings are again evident on this exam. Specifically, there is near-complete obliteration of the disc spaces at these three levels, and there is marked sclerosis of the opposing endplates of C4, C5, C6, and C7. There is also marked sclerosis of the opposing endplates of T1 and T2 with near-complete obliteration of the disc space at this level as well. Similar but less severe changes are also seen at T3 and T4. These degenerative changes do not appear to have progressed since the prior exam. However, on the coronal images, there does appear to be widening of the space between the lateral mass of C1 and the body of C2 (image 9/40). The axial images through this level show a few small calcific densities which may be related to minute avulsion fractures. A neurosurgical consult would be recommended. No other fracture or acute bony abnormality is appreciated. There is no sign of retropharyngeal edema. The thyroid gland is generally unremarkable. The lung apices are clear. IMPRESSION: 1. There is widening of the space between the lateral mass of C1 and the body of C2. This suggests a possible ligamentous injury in this area. There also appear to be a few minute avulsion fractures. An orthopedic consult would be recommended for further evaluation. 2. There is no acute bony abnormality identified otherwise. 3. There is severe degenerative disc and bony disease at C4-C5, C5-C6, and C6-C7 and at T1-T2 and T3-T4. 4. These results were discussed with Alexey Dolan APRN in the ER at the time of this dictation. CRITICAL FINDING Dictated on workstation # [id number] Dict: 12/02/18 1502 Trans: 12/02/18 1528 [id number] Interpreted by: ELIZABETH BERKOWITZ MD Electronically signed by: Departure Communication (Admissions) Time/Spoke to Admitting Phy: 17:10 I discussed the case with Dr. Chaidez from stroke neurology at the [facility] recommends transfer there. I then discussed the case with the patient's daughter and Dr. Carbone both of whom agree that her quality of life would be very poor. Both are in agreement to keep the patient here on comfort care. She is now much more relaxed appearing, not tremulous or jerking and she is able to lay still. Her blood pressure is 140/90, respiratory rate is 21 oxygen 94% on 2 L, heart rate is 94 atrial fibrillation. 1725-I relayed the information to Dr. Chaidez from [facility], he wants to clarify why the patient is not being sent to the [facility] for clot retrieval. He feels as though this is a completely reversible syndrome. However discussion with the patient's daughter Ese and Dr. Carbone, the daughter states that her mother's quality of life is terrible to begin with and doesn't want her mother to be transferred for a procedure which will at best prolong her suffering and at worst increase her suffering. Dr. Chaidez states this conversation Yaima had with daughter/PCP about whether or not to transfer to /have clot retrieval shouldn't have even taken place yet, it should take place after clot retrieval when quality of life/stroke Deficits have been determined. 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 Carbone before that she is ready to to be out of pain and misery, Dr. Carbone states that she is typically tearful during office visits due to depression and the daughter agrees with all of these things stating that the patient's quality of life is very poor to begin with and even if this clot were retrieved, her quality of life would be back to baseline terrible and misery prolonged. We are all in agreement that the kindest act at this point is to keep Fernando here on comfort care. 1512-daughter is present and states that the atrial fibrillation is known, she is not on anticoagulation (history of rheumatoid arthritis with recurrent hemarthroses of shoulders), this would make stroke very high on the differential diagnosis list. I suspect that the Narcan and removal of the fentanyl patch on scene by EMS, while very appropriate in the prehospital setting, may be contributing to the tachycardia and the shaking. We will give dosages of 50 g of fentanyl until she is able to settle down and hold still enough to obtain an EKG and ct angio head/neck 1518-Dr. Berkowitz from radiology called to report that intervertebral space between the lateral mass on the right side of C1 and C2 is a bit widened as co mpared to the left side which may represent a ligamentous injury. She is in a soft cervical collar from home but daughter states there is no known cervical fracture, this collar is simply because of her rheumatoid arthrits and for comfort Impression Primary Impression: Left sided cerebral hemisphere cerebrovascular accident (CVA) Disposition: 09 ADMITTED INPATIENT Condition: Critical Admissions Decision to Admit Reason: Admit from ER (General) Decision to Admit/Date: Dec 02, 2018 Time/Decision to Admit Time: 17:30 Departure-Patient Inst. Referrals: WOODY CARBONE MD (PCP/Family) Primary Care Physician ALEXEY DOLAN APRN Dec 02, 2018 14:52
[2018-12-02] MEDS ORDERED: fentaNYL INJECTION 100 MCG/2 ML AMP ONE ×2 (15:09→18:56)
[2018-12-02 15:11] LABS: ALANINE AMINOTRANSFERASE 19 U/L (0-55); ALBUMIN 4.1 GM/DL (3.2-4.5); ALKALINE PHOSPHATASE 79 U/L (40-136); BILIRUBIN,TOTAL 0.6 MG/DL (0.1-1.0); BUN/CREATININE RATIO 29; CALCIUM 9.1 MG/DL (8.5-10.1); CARBON DIOXIDE 27 MMOL/L (21-32); CHLORIDE 99 MMOL/L (98-107); GFR ESTIMATED 53; GLUCOSE 226 MG/DL (70-105); POTASSIUM 4.5 MMOL/L (3.6-5.0); SODIUM 138 MMOL/L (135-145); TOTAL PROTEIN 7.5 GM/DL (6.4-8.2)
[2018-12-02 15:14] LABS: BAND NEUTROPHILS 0 %; BASOPHILS % (MANUAL) 0 %; EOSINOPHILS % (MANUAL) 0 %; LYMPHOCYTES % (MANUAL) 5 %; MONOCYTES % (MANUAL) 2 %; NEUTROPHILS % (MANUAL) 93 %; RBC MORPH NORMAL
[2018-12-02] MEDS ORDERED: LORazepam INJ 2 MG/ML (ATIVAN) VIAL IVP PRN ×2 (15:15→18:30)
[2018-12-02] MEDS ORDERED: fentaNYL INJECTION 100 MCG/2 ML AMP IVP ONE ×3 (15:15→15:30)
[2018-12-02] MEDS ORDERED: NS IV 500 ML 500 ML IV SCH (15:30)
--- NOTE | 2018-12-02 15:31 | Diagnostic Imaging Report ---
PROCEDURE: CT head and CT cervical spine without contrast. TECHNIQUE: Multiple contiguous axial images were obtained through the brain and cervical spine without the use of intravenous contrast. Sagittal and coronal reformations through the cervical spine were then performed. Auto Exposure Controls were utilized during the CT exam to meet ALARA standards for radiation dose reduction. INDICATION: Fell, head and neck pain. CT OF THE HEAD: There are no prior CT head examinations available for comparison. This study is less than optimal due to motion artifact. There is no mass, shift of the midline, or hemorrhage to suggest an acute intracranial abnormality. The ventricles are not abnormally dilated. There are vague areas of low density in the periventricular white matter bilaterally. These findings are nonspecific but may be secondary to encephalomalacia from microvascular ischemia. There is also cortical atrophy present. The degree of atrophy is consistent with the patient's age. The orbits are symmetrical and within normal limits. The sinuses are generally clear. IMPRESSION: There is no evidence for an acute intracranial abnormality. However, this exam is limited due to motion artifact. If clinical concern regarding an underlying abnormality persists, then repeat CT head exam should be obtained if the patient can be safely sedated. CT CERVICAL SPINE: This exam is limited due to motion artifact. There are no previous CT cervical spine examinations available for comparison. The MRI cervical spine exam of 02/17/2014 noted severe degenerative disc and bony disease at C4-C5, C5-C6, and C6-C7. Those findings are again evident on this exam. Specifically, there is near-complete obliteration of the disc spaces at these three levels, and there is marked sclerosis of the opposing endplates of C4, C5, C6, and C7. There is also marked sclerosis of the opposing endplates of T1 and T2 with near-complete obliteration of the disc space at this level as well. Similar but less severe changes are also seen at T3 and T4. These degenerative changes do not appear to have progressed since the prior exam. However, on the coronal images, there does appear to be widening of the space between the lateral mass of C1 and the body of C2 (image 9/40). The axial images through this level show a few small calcific densities which may be related to minute avulsion fractures. A neurosurgical consult would be recommended. No other fracture or acute bony abnormality is appreciated. There is no sign of retropharyngeal edema. The thyroid gland is generally unremarkable. The lung apices are clear. IMPRESSION: 1. There is widening of the space between the lateral mass of C1 and the body of C2. This suggests a possible ligamentous injury in this area. There also appear to be a few minute avulsion fractures. An orthopedic or neurosurgical consult would be recommended for further evaluation. 2. There is no acute bony abnormality identified otherwise. 3. There is severe degenerative disc and bony disease at C4-C5, C5-C6, and C6-C7 and at T1-T2 and T3-T4. 4. These results were discussed with Mamadou Dolan APRN in the ER at the time of this dictation. CRITICAL FINDING Dictated by: Dictated on workstation # [id number]
[2018-12-02 15:45] LABS: BILIRUBIN,URINE NEGATIVE (NEGATIVE); CLARITY,URINE CLEAR; COLOR,URINE YELLOW; GLUCOSE, URINE (UA) NEGATIVE (NEGATIVE); KETONES,URINE NEGATIVE (NEGATIVE); LEUKOCYTE ESTERASE ,URINE NEGATIVE (NEGATIVE); NITRITE,URINE NEGATIVE (NEGATIVE); PH,URINE 5 (5-9); PROTEIN,URINE 1+ (NEGATIVE); UROBILINOGEN,URINE NORMAL (NORMAL)
[2018-12-02 15:57] LABS: INR 0.9 (0.8-1.4); PROTHROMBIN TIME PATIENT 12.1 SEC (12.2-14.7)
[2018-12-02 15:59] LABS: AMORPHOUS SEDIMENT,UR RARE AMOR URATES /LPF; BACTERIA,URINE NEGATIVE /HPF; RBC,URINE RARE /HPF; SQUAMOUS EPITHELIAL CELL,UR RARE /HPF
[2018-12-02 16:00] LABS: FIBRIN DEGRADATION PRODUCTS 1.55 UG/ML (0.00-0.49)
[2018-12-02] MEDS ORDERED: NS 100 ML (IVPB) BAG IV ONE (16:00)
[2018-12-02] MEDS ORDERED: meTOprolol 5 MG/5 ML (LOPRESSOR) VIAL IV ONE (16:00)
[2018-12-02] MEDS ORDERED: IOHEXOL 350 MG/ML 100 ML (OMNIPAQUE 350) VIAL IV ONE (16:00)
[2018-12-02] MEDS ORDERED: HOLD METFORMIN - RECEIVED CONTRAST 20 ML VIAL IV SCH (16:00)
--- NOTE | 2018-12-02 16:12 | Diagnostic Imaging Report ---
INDICATION: Stroke-like symptoms. COMPARISON: 02/18/2018. FINDINGS: Pulmonary apices are obscured by the head in this patient with the neck flexed. Some chronic prominence of interstitial lung markings as well as costochondral cartilaginous calcifications. No acute infiltrate and no failure. IMPRESSION: Limited views of the upper lobes. Chronic findings. No acute pathology apparent. Dictated by: Dictated on workstation # [id number]
[2018-12-02] MEDS ORDERED: fentaNYL INJECTION 100 MCG/2 ML AMP IVP PRN ×2 (16:45→19:00)
[2018-12-02] MEDS ORDERED: fentaNYL PATCH 100 MCG (DURAGESIC) TD SCH ×2 (16:45→20:15)
--- NOTE | 2018-12-02 16:50 | Diagnostic Imaging Report ---
PROCEDURE: CT angiography of the head and CT angiography of the neck with and without contrast. TECHNIQUE: Contiguous noncontrast images were obtained from the skull base through the vertex. After intravenous contrast administration, helical CT angiography of the neck was performed. Source data was reformatted into 3D MIP projections. Delayed post contrast acquisition was also obtained. Auto Exposure Controls were utilized during the CT exam to meet ALARA standards for radiation dose reduction. INDICATION: Unresponsive. CT angio neck: FINDINGS: Branching pattern of the great vessels is unremarkable. Cervical vertebral arteries are patent and nonfocal, the left the dominant vessel. Bilateral common carotid arteries are tortuous on the right but patent bilaterally. There is calcified plaque at the carotid bulbs extending into the proximal internal and external carotids without hemodynamically significant degrees of stenosis. There is tortuosity of the right greater than left cervical internal carotids. Both proximal internal carotid arteries are widely patent and show isoenhancement of the lumen. The right cervical internal carotid is patent throughout. Commencing at about the C2-C3 endplate articulation there is gradual diminished intraluminal opacification and contrast density within the left cervical internal carotid. At its petrous segment it shows no flow or minute amounts of flow. Its cavernous segment is occluded. There is patent ACOM, with a likely right to left cross flow opacifying the left A1 segment and left anterior cerebral artery. The left middle cerebral artery is occluded. There is some collateralization at distal small-caliber left hemispheric M4 branches, but overall there is marketed hypoenhancement of the left hemisphere. The intradural vertebrals, the basilar, and the milled rice broker are patent. 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 The left anterior cerebral artery is opacified likely via right to left of flow across a patent ACOM. Remaining intracranial arterial structures are unremarkable. There are likely early edematous changes in the left MCA territory without mass effect, shift, hydrocephalus, or hemorrhagic component. Results phoned to Mamadou Dolan APRN. Dictated by: Dictated on workstation # [id number]
--- NOTE | 2018-12-02 17:11 | NUR ---
FAMILY HAS DECIDED ON COMFORT CARE FOR PT
--- NOTE | 2018-12-02 17:47 | NUR ---
SKIN TEAR ON R UPPER ARM TELFA APPLIED AND WRAPPED LOOSELY W QIUNN
[2018-12-02 18:25] VITALS: BP 143/89
[2018-12-02] MEDS ORDERED: ACETAMINOPHEN 650 MG SUPP (TYLENOL) PR PRN (18:30)
[2018-12-02] MEDS ORDERED: RT-ALBUTEROL/IPRATROPIUM 3 ML (DUONEB) VIAL INH PRN (18:30)
[2018-12-02] MEDS ORDERED: ONDANSETRON 4 MG/2 ML (SDV) Z0FRAN IVP PRN (18:30)
[2018-12-02] MEDS ORDERED: ARTIFICAL TEARS 0.4 ML UNIT DOSE (REFRESH PLUS) OU PRN (18:30)
[2018-12-02] MEDS ORDERED: BISACODYL 10 MG SUPP (DULCOLAX) PR PRN (18:30)
[2018-12-02] MEDS ORDERED: NS IV 1000 ML 0 ML ONE (18:39)
[2018-12-02] MEDS: SCOPOLAMINE 1.5 MG (TRANSDERM-SCOP) PATCH TOP SCH (18:51)
[2018-12-02 19:50] VITALS: BP 146/88
--- NOTE | 2018-12-02 20:47 | History & Physical ---
History of Present Illness History of Present Illness Reason for visit/HPI PT IS AN 83 Y/O FEMALE WHO IS WELL KNOWN TO ME FROM CLINIC. CANDACE PRESENTED TO THE HOSPITAL WITH SYMPTOMS OF ACUTE STROKE. HER LAST KNOWN WELL TIME WAS 8AM, HER SON-IN-LAW, MARIA DEL CARMEN, FOUND HER DOWN ON THE FLOOR, UNABLE TO RESPOND TO HIS QUESTIONING, HE CALLED FOR AMBULANCE SERVICES AND SHE WAS BROUGHT TO THE HOSPITAL WHERE THEY GAVE HER NARCAN FOR POSSIBLE CHRONIC PAIN MEDICATION OVERDOSE. THE NARCAN WAS NOT SUCCESSFUL AT REVERSING THE SYMPTOMS, THEREFORE SHE WAS TAKEN FOR CT HEAD AND THEN CTA WHICH SHOWED A CLOT IN HER LEFT INTERNAL CAROTID ARTERY AND LEFT MCA BRANCH OCCLUSION. THE PATIENT'S CASE WAS DISCUSSED WITH THE INTERVENTIONAL NEUROLOGIST AT [facility] WHO OFFERED TREATMENT FOR THE CLOT, BUT THE FAMILY HAS DECIDED TO FORGO THIS TREATMENT DUE TO HER CURR ENT POOR QUALITY OF LIFE, CHRONIC PAIN. THE NEUROLOGIST WAS UPSET DUE TO THE PATIENT NOT BEING TRANSFERRED, THE NEUROLOGIST STATED THAT THEY WILL OFTEN DO THE PROCEDURE AND THEN DISCUSS COMFORT CARE IF THE RECOVERY POST-PROCEDURE IS NOT EXPECTED. AFTER WE DISCUSSED THE PATIENT'S CURRENT POOR QUALITY OF LIFE AND CHRONIC PAIN WITH DECREASED POSSIBILITY OF ADEQUATE RECOVERY, HE WAS IN AGREEMENT THEN THAT COMFORT CARE WAS AN ACCEPTABLE OPTION. Date of Admission Dec 02, 2018 at 17:53 Date Seen by a Provider: Dec 02, 2018 Time Seen by a Provider: 20:30 I consulted on this patient on 12/02/18 20:30 Attending Physician Araceli Silva MD Admitting Physician Araceli Silva MD Consult Allergies and Home Medications Allergies Coded Allergies: Penicillins (Verified Allergy, Unknown, 01/25/18) Sulfa (Sulfonamide Antibiotics) (Verified Allergy, Unknown, 01/25/18) Patient Home Medication List Home Medication List Reviewed: Yes Past Kehktkq-Ohjndw-Ouphae Hx Past Med/Social Hx: Reviewed Nursing Past Med/Soc Hx, Reviewed and Corrections made Patient Social History Marrital Status: Employed/Student: retired Alcohol Use: Denies Use Number of Drinks Today: BB Alcohol Beverage of Choice: [place], Wine Recreational Drug Use: No Smoking Status: Never a Smoker Former Smoker, Quit: Dec 05, 1961 Type Used: Cigarettes 2nd Hand Smoke Exposure: No Physical Abuse Screen: No Sexual Abuse: No Recent Foreign Travel: No Contact w/other who traveled: No Recent Hopitalizations: No Recent Infectious Disease Expo: No Immunizations Up To Date Tetanus Booster (TDap): Unknown Pediatric: No Date of Pneumonia Vaccine: Mar 02, 2014 Date of Influenza Vaccine: Dec 06, 2017 Seasonal Allergies Seasonal Allergies: No Past Medical History Surgeries: Appendectomy, Breast, Eye Surgery, Joint Replacement, Orthopedic Currently Using CPAP: No Currently Using BIPAP: No Cardiac: High Cholesterol, Hypertension Neurological: Neuropathy, Spinal Cord Injury Reproductive: No Sexually Transmitted Disease: No HIV/AIDS: No Female Reproductive Disorders: Denies Menopausal Genitourinary: Bladder Infection Gastrointestinal: Hemorrhoids, Chronic Diarrhea Musculoskeletal: Osteoporosis, Arthritis, Rheumatoid Arthritis HEENT: Cataract Loss of Vision: Denies Hearing Impairment: Hard of Hearing History of Blood Disorders: No Adverse Reaction to Blood Adams: No Family History Reviewed and Corrections made Heart Disease, Hypertension Review of Systems ROS-Unable to Obtain: PT OS OBTUNDED Constitutional: other (pt unable to respond to review of systems) EENTM: see HPI Psychiatric/Neurological: Pre-Existing Deficit, Weakness Physical Exam Vital Signs Vital Signs - First Documented 12/02/18 14:37 Temp 36.9 Pulse 137 Resp 30 B/P (MAP) 174/102 (126) Pulse Ox 89 O2 Delivery Nasal Cannula O2 Flow Rate 2.00 Capillary Refill : Less Than 3 Seconds Height, Weight, BMI Height: 5'7.00" Weight: 147lbs. 9.0oz. 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 The left anterior cerebral artery is opacified likely via right to left of flow across a patent ACOM. Remaining intracranial arterial structures are unremarkable. There are likely early edematous changes in the left MCA territory without mass effect, shift, hydrocephalus, or hemorrhagic component. After a thorough discussion with her Daughter and Son-In-Law, we have decided to place her on comfort care in the hospital, iv fentanyl, IV ativan, and further treatment and monitoring of symptoms. 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 Clinical Quality Measures DVT/VTE Risk/Contraindication: Risk Factor Score Per Nursin RFS Level Per Nursing on Admit: 4+=Very High ARACELI SILVA MD Dec 02, 2018 20:47
[2018-12-02] MEDS ORDERED: fentaNYL (OMNICELL DRIP KIT ONLY) 250 MCG/5 ML AMP ONE (23:18)
[2018-12-02] MEDS ORDERED: NS (IVPB) 100 ML ONE (23:18)
[2018-12-02] MEDS: NS IV 1000 ML 1,000 ML IV SCH (23:38)
--- NOTE | 2018-12-02 23:40 | NUR ---
ORDERED CHIEF STATION ENGINEER FENTANYL FOR PT. PHARMACY NOT AVAILABLE TO MIX FENTANYL DOSE AT THIS TIME. THIS NURSE CONTACTED [employer]IC[employer] PACKAGE SYMBOL STAMPER REGARDING FENTANYL FOR PT CHIEF STATION ENGINEER PUMP. FENTANYL BAG MIXED BY TIRE FABRIC IMPREGNATING RANGE TENDER WITH KIT PULLED FROM [employer]. DOSE VERIFIED BY THIS NURSE AND TIRE FABRIC IMPREGNATING RANGE TENDER.
[2018-12-03 06:29] LABS: CHOLESTEROL 175 MG/DL (< 200); HDL CHOLESTEROL 68 MG/DL (40-60); TRIGLYCERIDES 144 MG/DL (<150); VLDL CHOLESTEROL 29 MG/DL (5-40)
[2018-12-03] MEDS: fentaNYL INJECTION 5,000 MCG in EMPTY IV BAG (PVC) 1 EA IV SCH (09:28)
--- NOTE | 2018-12-03 09:56 | Progress Note ---
Subjective Date Seen by a Provider: Dec 03, 2018 Time Seen by a Provider: 12:10 Subjective/Events-last exam PT'S DTR AND FRIENDS AT BEDSIDE. HER DAUGHTER REPORTS THAT HER MOM HAS SQUEEZED HER HAND INTERMITTENTLY - BUT DOES NOT SEEM TO BE IN RESPONSE TO ANY PURPOSEFUL QUESTIONS. Review of Systems General: Other (DOES NOT RESPOND TO QUESTIONS) Neurological: Other (DOES NOT OPEN EYES TO VOICE.) Objective Exam Last Set of Vital Signs Vital Signs Date Time Temp Pulse Resp B/P (MAP) Pulse Ox O2 Delivery O2 Flow Rate FiO2 12/03/18 09:28 37.2 12/02/18 23:25 Nasal Cannula 2.00 12/02/18 19:50 77 20 146/88 (107) 99 Capillary Refill : Less Than 3 Seconds I&O l Intake and Output 12/03/18 00:00 Intake Total 500 ml Output Total 2150 ml Balance -1650 ml Intake IV Total 500 ml Output Urine Total 2150 ml Daily Weight Change No General: Other (eyes open to stimuli) Lungs: Other (decreasee throughout) Heart: Other (tachycardia) Psych/Mental Status: Other (intermittently responds to stimuli) Results Lab Laboratory Tests 12/02/18 14:48: White Blood Count 11.2H, Red Blood Count 4.13L, Hemoglobin 13.7, Hematocrit 41, Mean Corpuscular Volume 100H, Mean Corpuscular Hemoglobin 33, Mean Corpuscular Hemoglobin Concent 33, Red Cell Distribution Width 14.2, Platelet Count 245, Mean Platelet Volume 9.4, Neutrophils (%) (Auto) 88H, Lymphocytes (%) (Auto) 6L, Monocytes (%) (Auto) 6, Eosinophils (%) (Auto) 0, Basophils (%) (Auto) 0, Neutrophils # (Auto) 9.8H, Lymphocytes # (Auto) 0.6L, Monocytes # (Auto) 0.7, Eosinophils # (Auto) 0.0, Basophils # (Auto) 0.0, Neutrophils % (Manual) 93, Lymphocytes % (Manual) 5, Monocytes % (Manual) 2, Eosinophils % (Manual) 0, Basophils % (Manual) 0, Band Neutrophils 0, Blood Morphology Comment NORMAL, Sodium Level 138, Potassium Level 4.5, Chloride Level 99, Carbon Dioxide Level 27, Anion Gap 12, Blood Urea Nitrogen 29H, Creatinine 1.00, Estimat Glomerular Filtration Rate 53, BUN/Creatinine Ratio 29, Glucose Level 226H, Calcium Level 9.1, Corrected Calcium 9.0, Total Bilirubin 0.6, Aspartate Amino Transf (AST/SGOT) 18, Alanine Aminotransferase (ALT/SGPT) 19, Alkaline Phosphatase 79, Troponin I < 0.028, Total Protein 7.5, Albumin 4.1 12/02/18 15:34: Prothrombin Time 12.1L, INR Comment 0.9, Activated Partial Thromboplast Time 25, D-Dimer 1.55H 12/02/18 15:35: Urine Color YELLOW, Urine Clarity CLEAR, Urine pH 5, Urine Specific [place] 1.010L, Urine Protein 1+H, Urine Glucose (UA) NEGATIVE, Urine Ketones NEGATIVE, Urine Nitrite NEGATIVE, Urine Bilirubin NEGATIVE, Urine Urobilinogen NORMAL, Urine Leukocyte Esterase NEGATIVE, Urine RBC (Auto) NEGATIVE, Urine RBC RARE, Urine WBC NONE, Urine Squamous Epithelial Cells RARE, Urine Crystals PRESENTH, Urine Amorphous Sediment RARE DEYSI URATESH, Urine Bacteria NEGATIVE, Urine Casts PRESENT, Urine Hyaline Casts 5-10H, Urine Mucus NEGATIVE, Urine Culture Indicated NO 12/03/18 05:30: Triglycerides Level 144, Cholesterol Level 175, LDL Cholesterol Direct 84, VLDL Cholesterol 29, HDL Cholesterol 68H Assessment/Plan Assessment/Plan Assess & Plan/Chief Complaint 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 The left anterior cerebral artery is opacified likely via right to left of flow across a patent ACOM. Remaining intracranial arterial structures are unremarkable. There are likely early edematous changes in the left MCA territory without mass effect, shift, hydrocephalus, or hemorrhagic component. After a thorough discussion with her Daughter and Son-In-Law, we have decided to place her on comfort care in the hospital, iv fentanyl, IV ativan, and further treatment and monitoring of symptoms. Increase in fentanyl due to the patient's increase in air hunger symptoms. Clinical Quality Measures DVT/VTE Risk/Contraindication: Risk Factor Score Per Nursin RFS Level Per Nursing on Admit: 4+=Very High WOODY CARBONE MD Dec 03, 2018 09:56
[2018-12-03] MEDS ORDERED: CATHETER FLUSH 10 ML SYR IV PRN (10:30)
--- NOTE | 2018-12-03 10:30 | NUR ---
FENTANYL SHEETER MACHINE OPERATOR SETTING CHANGED PER DOCTOR'S ORDERS. VERIFIED BY RN DEJA BIRD AND PHARMACIST TIM.
[2018-12-03] MEDS: LORazepam INJ 2 MG/ML (ATIVAN) VIAL IVP SCH ×3 (11:06→18:19)
--- NOTE | 2018-12-03 12:10 | NUR ---
Initial palliative visit. The patient is resting in bed with her eyes closed. Her respirations are even et unlabored. She appears to be comfortable. Her health technical writer is at bedside et he reports that she has not opened her eyes or had any movement since he's been there. Her nurse Trixie LIGHT reports that she has opened her eyes earlier today but was not able to answer any questions. She has pain medication that she is receiving a continuous infusion. She does not appear to have any needs at this time. Encouraged Trixie to let me know when/if her daughter returns so I can meet her.
--- NOTE | 2018-12-03 16:00 | NUR ---
Pastoral care visit x2 no family present, pt resting quietly.
--- NOTE | 2018-12-03 16:28 | NUR ---
Appears to be resting peacefully in bed. Sat with patient et noted that she is having periods of approximately 15 seconds of apnea in between her respirations where she will then breath for approximately 15 seconds. I f/u with her primary care nurse Trixie et then also called her daughter Ese to notify of expected change in her condition. Ese gave thanks for the update but did not indicate they would be coming out to the hospital at this time. She was given the 4th floor main number to call and check on her mom. She denied any other needs.
[2018-12-03] MEDS: SALIVA STIMULANT MOUTH SPRAY (BIOTENE) 1.5 OZ MM PRN (18:19)
--- NOTE | 2018-12-03 22:40 | NUR ---
PEG TUBE FEEDING DONE PER DIETARY RECOMMENDATION. RESIDUAL CHECKED, 30ML PRESENT, PH 5. FLUSHED WITH 60ML WATER. JEVITY ADMINISTERED BY GRAVITY. FLUSHED WITH 60ML WATER AFTER. Addendum: 12/04/18 at 0007 by IRVING JAVIER RN WRONG PATIENT
[2018-12-04] MEDS: LORazepam INJ 2 MG/ML (ATIVAN) VIAL IVP SCH ×4 (02:25→17:54)
[2018-12-04] MEDS: NS IV 1000 ML 1,000 ML IV SCH (09:20)
[2018-12-04] MEDS: SALIVA STIMULANT MOUTH SPRAY (BIOTENE) 1.5 OZ MM PRN (09:20)
--- NOTE | 2018-12-04 12:38 | Progress Note - Hospitalist ---
Subjective HPI/CC On Admission Date Seen by Provider: Dec 04, 2018 Time Seen by Provider: 11:15 stroke-like symptoms Subjective/Events-last exam She is unresponsive. She appears comfortable. She is not in distress. Objective Exam Vital Signs Vital Signs Date Time Temp Pulse Resp B/P (MAP) Pulse Ox O2 Delivery O2 Flow Rate FiO2 12/03/18 09:28 37.2 12/02/18 23:25 Nasal Cannula 2.00 12/02/18 19:50 77 20 146/88 (107) 99 Capillary Refill : Less Than 3 Seconds General Appearance: No Apparent Distress, Obese, Other (ill-appearing) Respiratory: No Accessory Muscle Use, No Respiratory Distress Gastrointestinal: No Non Tender; Soft; No Distended Extremity: Normal Inspection Neurologic/Psychiatric: Other (obtunded and non-responsive) Skin: Normal Color, Warm/Dry Results/Procedures Lab Patient resulted labs reviewed. Assessment/Plan Assessment and Plan Assess & Plan/Chief Complaint Left MCA stroke Comfort measures only status -Continue comfort cares Diagnosis/Problems Diagnosis/Problems (1) Left sided cerebral hemisphere cerebrovascular accident (CVA) Status: Acute (2) Comfort measures only status Status: Acute Clinical Quality Measures DVT/VTE Risk/Contraindication: Risk Factor Score Per Nursin RFS Level Per Nursing on Admit: 4+=Very High SURY MARCOS MD Dec 04, 2018 12:38
[2018-12-05] MEDS: LORazepam INJ 2 MG/ML (ATIVAN) VIAL IVP SCH ×4 (01:24→17:48)
[2018-12-05] MEDS: NS IV 1000 ML 1,000 ML IV SCH ×2 (10:16→10:43)
[2018-12-05] MEDS: SALIVA STIMULANT MOUTH SPRAY (BIOTENE) 1.5 OZ MM PRN (10:43)
[2018-12-05] MEDS: fentaNYL INJECTION 5,000 MCG in EMPTY IV BAG (PVC) 1 EA IV SCH (11:16)
--- NOTE | 2018-12-05 12:59 | Progress Note - Hospitalist ---
Subjective HPI/CC On Admission Date Seen by Provider: Dec 05, 2018 Time Seen by Provider: 11:00 stroke-like symptoms Subjective/Events-last exam She is resting comfortably in bed. She is unresponsive. Objective Exam Vital Signs Vital Signs Date Time Temp Pulse Resp B/P (MAP) Pulse Ox O2 Delivery O2 Flow Rate FiO2 12/05/18 11:16 37.2 12/02/18 23:25 Nasal Cannula 2.00 12/02/18 19:50 77 20 146/88 (107) 99 Capillary Refill : Less Than 3 Seconds General Appearance: No Apparent Distress, Obese Respiratory: Lungs Clear, Normal Breath Sounds, Other (tachypnic) Cardiovascular: Systolic Murmur, Tachycardia, Other (irregular rhythm) Gastrointestinal: Soft, Abnormal Bowel Sounds (hypoactive); No Distended Neurologic/Psychiatric: Other (obtunded) Results/Procedures Lab Patient resulted labs reviewed. Assessment/Plan Assessment and Plan Assess & Plan/Chief Complaint Left MCA stroke Comfort measures only status -Continue comfort cares Diagnosis/Problems Diagnosis/Problems (1) Left sided cerebral hemisphere cerebrovascular accident (CVA) Status: Acute (2) Comfort measures only status Status: Acute Clinical Quality Measures DVT/VTE Risk/Contraindication: Risk Factor Score Per Nursin RFS Level Per Nursing on Admit: 4+=Very High SURY MARCOS MD Dec 05, 2018 12:59
[2018-12-05] MEDS: SCOPOLAMINE 1.5 MG (TRANSDERM-SCOP) PATCH TOP SCH (18:00)
[2018-12-05] MEDS: SCOPOLAMINE PATCH REMOVAL TP SCH (18:02)
[2018-12-05] MEDS: FENTANYL PATCH REMOVAL TP SCH (18:38)
--- NOTE | 2018-12-05 18:39 | NUR ---
THE FENTANYL PATCH REMOVAL WAS NON-ADMINISTERED ON THE EMAR. THE PATIENT DOES NOT HAVE A FENTANYL PATCH ON.
[2018-12-06] MEDS: LORazepam INJ 2 MG/ML (ATIVAN) VIAL IVP SCH ×5 (00:10→20:54)
--- NOTE | 2018-12-06 05:30 | NUR ---
THIS NURSE CLINICAL PHARMACIST WENT IN TO CHECK ON PT AND HER BREATHING HAD BECOME INCREASINGLY LABORED IN THE LAST HOUR, RR AT 30 A MINUTE. DAUGHTER, AYAH, NOTIFIED AT THIS TIME THAT PT HAS APPEARED TO DECLINE RAPIDLY THIS EARLY AM. DAUGHTER REPORTED SHE WOULD DECIDE WHETHER SHE WOULD GO TO WORK OR COME OUT TO THE HOSPITAL LATER.
--- NOTE | 2018-12-06 08:31 | Progress Note ---
Subjective Date Seen by a Provider: Dec 06, 2018 Time Seen by a Provider: 08:20 Subjective/Events-last exam PT IS UNRESPONSIVE TO TOUCH, VOICE, PAIN. PER NURSING STAFF - THERE WAS REPORT FROM BREAKER LAYER TO DAY SHIFT THAT SHE HAD JUST STARTED TO HAVE INCREASED WORK OF BREATHING AND THE APPEARANCE OF A DECLI NE. PTS DAUGHTER AND SON-IN-LAW WERE CALLED AND THEY REPORT THAT THEY DID NOTICE A DECLINE WITH INCREASED EFFORT YESTERDAY WHEN THEY VISITED. Review of Systems General: Other (OBTUNDED) Pulmonary: Dyspnea Gastrointestinal: No: Vomiting Neurological: Other (OBTUNDED) Objective Exam Last Set of Vital Signs Vital Signs Date Time Temp Pulse Resp B/P (MAP) Pulse Ox O2 Delivery O2 Flow Rate FiO2 12/05/18 11:16 37.2 12/02/18 23:25 Nasal Cannula 2.00 12/02/18 19:50 77 20 146/88 (107) 99 Capillary Refill : Less Than 3 Seconds I&O Intake and Output 12/06/18 00:00 Intake Total 0 ml Output Total 400 ml Balance -400 ml Intake Oral 0 ml Output Urine Total 400 ml General: Other (OBTUNDED) HEENT: Other (MM DRY) Lungs: Other (CRACKLES IN BASES, RAPID BREATHING) Heart: Other (IRREGULARLY IRREGULAR) Skin: Other (BRUISING ON HANDS/ARMS) Neuro: Other (DOES NOT RESPOND TO VOICE OR TOUCH OR PAIN) Psych/Mental Status: Other (OBTUNDED) Assessment/Plan Assessment/Plan Assess & Plan/Chief Complaint 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 The left anterior cerebral artery is opacified likely via right to left of flow across a patent ACOM. Remaining intracranial arterial structures are unremarkable. There are likely early edematous changes in the left MCA territory without mass effect, shift, hydrocephalus, or hemorrhagic component. After a thorough discussion with her Daughter and Son-In-Law, Fernando was placed on comfort care in the hospital - due to her increase in symptoms of air-hunger and appearance of discomfort - her IV fentanyl will be increased from 100mcg/hr to 150mcg/hr (she was previously on a 100mcg fentanyl patch and 30mg of oxycodone qid), and her IV ativan will be increased from 0.5mg q6HR to 0.5mg q4HR. 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
--- NOTE | 2018-12-06 12:00 | NUR ---
atavan not given. pt resting comfortably without any signs of anxiety.
--- NOTE | 2018-12-06 12:33 | NUR ---
Palliative Care RN in to see patient. No family is present at time of visit. Noted patient to be laying on back with HOB elevated to 30*. She did not appear to be in pain as noted by facial grimace, clinching of jaws and or moaning, however she was tachypneic w RR >30. She has a INTERNATIONAL MARKETING COORDINATOR and this RN delivered a demand dose. Patient is unresponsive to verbal and tactile cues. She does not appear to be eminently dying. May need to consider discharge to SNF for EOL care.
--- NOTE | 2018-12-06 15:20 | NUR ---
Pastoral care visit x2, pt non responsive no family present, offered kind words and prayer.
--- NOTE | 2018-12-06 16:00 | NUR ---
ATAVAN NOT GIVEN PT IS RESTING COMFORTABLY WITHOUT ANY SIGNS OF ANXIETY
--- NOTE | 2018-12-06 18:08 | NUR ---
ORAL CARE GIVEN Q1HR TODAY. PATIENT IS BREATHING SOFTLY WITH NO HARSH SOUND OR WORK OF BREATHING. PT SHOWS NO SIGNS OF PAIN OR ANXIETY.
[2018-12-06] MEDS: SALIVA STIMULANT MOUTH SPRAY (BIOTENE) 1.5 OZ MM PRN (20:57)
[2018-12-06] MEDS: NS IV 1000 ML 1,000 ML IV SCH (22:22)
[2018-12-07] MEDS: LORazepam INJ 2 MG/ML (ATIVAN) VIAL IVP SCH ×6 (00:14→20:03)
[2018-12-07] MEDS: SALIVA STIMULANT MOUTH SPRAY (BIOTENE) 1.5 OZ MM PRN ×3 (00:17→06:32)
--- NOTE | 2018-12-07 08:51 | Progress Note ---
Subjective Date Seen by a Provider: Dec 07, 2018 Time Seen by a Provider: 08:45 Subjective/Events-last exam PT IS OBTUNDED, UPON REVIEW OF HER MED LIST AND HER ARBORICULTURIST - NOTE IS MADE THAT THE ORDERS THAT I TOLD THE NURSE ABOUT AND I PERSONALLY PLACED IN THE COMPUTER SYSTEM WERE NOT FOLLOWED AND HER ARBORICULTURIST WAS NOT CHANGED YESTERDAY AFTER I PLACED THE NEW ARBORICULTURIST ORDERS. THE NURSING STAFF "NON ADMINISTERED" TWO DOSES OF SCHEDULED ATIVAN DUE TO PT NOT APPEARING TO BE ANXIOUS - BUT THE NURSE DID NOT CALL ME TO SEE IF I WANTED TO GIVE THE ORDER TO NON ADMINISTER THE MEDICATION. THE NURSE FROM YESTERDAY ALSO DID NOT CHANGE THE ARBORICULTURIST DOSE I HAD ORDERED. Review of Systems General: Other (OBTUNEDED, BUT HAVING RAPID BREATHING PATTERN OVER 35 TIMES PER MINUTE) Neurological: Other (OBTUNDED) Objective Exam Last Set of Vital Signs Vital Signs Date Time Temp Pulse Resp B/P (MAP) Pulse Ox O2 Delivery O2 Flow Rate FiO2 12/06/18 09:00 Nasal Cannula 12/05/18 11:16 37.2 12/02/18 23:25 2.00 12/02/18 19:50 77 20 146/88 (107) 99 Capillary Refill : Less Than 3 Seconds I&O Intake and Output 12/07/18 00:00 Intake Total 1000 ml Output Total 160 ml Balance 840 ml Intake Oral 0 ml IV Total 1000 ml Output Urine Total 160 ml General: Other (PT OBTUNDED, BUT APPEARS TO BE IN DISTRESS WITH RAPID BREATHING) Lungs: Other (IRREGULARLY IRREGULAR) Psych/Mental Status: Other (OBTUNDED) Assessment/Plan Assessment/Plan Assess & Plan/Chief Complaint 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 The left anterior cerebral artery is opacified likely via right to left of flow across a patent ACOM. Remaining intracranial arterial structures are unremarkable. There are likely early edematous changes in the left MCA territory without mass effect, shift, hydrocephalus, or hemorrhagic component. After a thorough discussion with her Daughter and Son-In-Law, Fernando was placed on comfort care in the hospital - due to her increase in symptoms of air-hunger and appearance of discomfort - her IV fentanyl was orderd to be be increased from 100mcg/hr to 150mcg/hr (she was previously on a 100mcg fentanyl patch and 30mg of oxycodone qid), and her IV ativan will be increased from 0.5mg q6HR to 0.5mg q4HR. - this was ordered on 12/06/18 in the morning and the nursing staff did not increase the ARBORICULTURIST. I have again increased the ARBORICULTURIST and advised the nurse and pharmacy of the medication change that did not happen yesterday and I expected it to happen HORTENSIA today. I also discussed with the nurse that if she was going to withhold a medication it should be discussed with me prior to holding the medication as it was not something that was PRN but was a scheduled medication for the patient's COMFORT! 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
[2018-12-07] MEDS: SCOPOLAMINE 1.5 MG (TRANSDERM-SCOP) PATCH TOP SCH (09:11)
[2018-12-07] MEDS: FENTANYL PATCH REMOVAL TP SCH (09:12)
--- NOTE | 2018-12-07 13:41 | NUR ---
PALLIATIVE CARE RN in to see patient. On initial visit there is no family or friends in the room.. Noted patients respirations to be shallow and tachypneic which indicates discomfort. This RN administered demand CADD dose. Spoke to Dr. Silva about patient and her tachypnea and she was going to investigate need for increased continuous infusion of Fentanyl via CADD. Spoke to Jimbo Silva and she reports a change in the dosing and mentioned she needs to get her scheduled Ativan. Upon second check on patient noted her to be less tachypneic and respirations more shallow. Family friend and caregiver at bedside. No needs at this time.
--- NOTE | 2018-12-07 14:05 | NUR ---
Pastoral care visit. Sat with pt for a few minutes
--- NOTE | 2018-12-07 14:25 | NUR ---
PALLIATIVE CARE RN in to see patient. Friend at bedside. She is laying partially on side and having grunting tachypneic respiration. Turned her to back and she stopped grunting. Administered a demand dose of Fentanyl per CADD and completed oral care.
[2018-12-07] MEDS: fentaNYL INJECTION 5,000 MCG in EMPTY IV BAG (PVC) 1 EA IV SCH (15:06)
--- NOTE | 2018-12-07 16:18 | NUR ---
PALLIATIVE CARE RN spoke with Dr. Silva and gave an update on the patients comfort through the day. I told her that I assessed her respirations to be shall but tachy and that at one point, when side lying she had grunting, sonorous respirations, which stopped when returned to her back. Dr. Silva gave order to increased the Fentanyl to 250 mcg continuous infusion. I have entered this order and notified the nurse. I have relayed 's request to not hesitate to push the demand dose if assessment requires it. Assessment would be respiratory rate over 25 and or grunting, sonorous respirations. Patient has a long standing history of Rheumatoid and osteoarthritis which required much pain medications. She has not yet reached her usual outpatient dosing level.
[2018-12-07] MEDS: NS IV 1000 ML 1,000 ML IV SCH (20:06)
[2018-12-08] MEDS: LORazepam INJ 2 MG/ML (ATIVAN) VIAL IVP SCH ×4 (00:34→17:36)
[2018-12-08] MEDS: fentaNYL INJECTION 5,000 MCG in EMPTY IV BAG (PVC) 1 EA IV SCH (08:28)
--- NOTE | 2018-12-08 09:15 | NUR ---
PALLIATIVE CARE RN in to see patient. She is laying on her left side and grunting with expiration. Gave her a demand dose of Fentanyl per MAILROOM COORDINATOR. I also repositioned to back. Patient is having periods of apnea lasting approximately 30 sec. Her recovery breaths number 10 in 30 seconds
--- NOTE | 2018-12-08 09:27 | Progress Note ---
Subjective Date Seen by a Provider: Dec 08, 2018 Time Seen by a Provider: 09:01 Subjective/Events-last exam pt is obtunded, she appears to be in more distress this morning when I walked into her room with increased work of breathing and gasping with rapid breathing pattern. Review of Systems General: Other (obtunded, appeared to be in distress with increased work of breathing) Neurological: Other (obtunded) Objective Exam Last Set of Vital Signs Vital Signs Date Time Temp Pulse Resp B/P (MAP) Pulse Ox O2 Delivery O2 Flow Rate FiO2 12/07/18 09:00 Nasal Cannula 12/05/18 11:16 37.2 12/02/18 23:25 2.00 12/02/18 19:50 77 20 146/88 (107) 99 Capillary Refill : Less Than 3 Seconds I&O Intake and Output 12/08/18 00:00 Output Total 200 ml Balance -200 ml Output Urine Total 200 ml General: Other (obtunded) Lungs: Other (decreased in bases, rapid rate of breathing) Heart: Other (tachycardic and irregularly irregular) Psych/Mental Status: Other (obtunded) Assessment/Plan Assessment/Plan Assess & Plan/Chief Complaint 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 The left anterior cerebral artery is opacified likely via right to left of flow across a patent ACOM. Remaining intracranial arterial structures are unremarkable. There are likely early edematous changes in the left MCA territory without mass effect, shift, hydrocephalus, or hemorrhagic component. After a thorough discussion with her Daughter and Son-In-Law, Fernando was placed on comfort care in the hospital - due to her increase in symptoms of air-hunger and appearance of discomfort - her IV fentanyl was orderd to be be increased a gain yesterday and today I talked to her nurse who asked if the VACATION GUIDE button was okay to be pressed by the staff. I have informed her that I expected for the staff to use the VACATION GUIDE to press the button to offer Fernando more comfort with her breathing and if needed they could inform me and I could increase her VACATION GUIDE basal rate if needed. The staff is to continue with her IV ativan at 0.5mg q4HR. With Fernando's increase in heart rate and increase in irregularity as well as her shallow breathing, I would expect for her to pass away today. 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
--- NOTE | 2018-12-08 13:00 | NUR ---
Patient continues to have long apneic periods with now shortened recovery duration. She has a slightly furrowed brow and demand dose of CADD delivered Fentanyl given. Repositioned to her right side. Oral care completed.
--- NOTE | 2018-12-08 17:00 | NUR ---
DR CARBONE CALLED FOR CHECK IN ON PT. UPDATE GIVEN. REQUESTED THAT PT'S HOUSING DEVELOPMENT SPECIALIST CONTINUOUS DOSE BE INCREASED FROM 250MCG TO 300MCG.
[2018-12-08] MEDS: SCOPOLAMINE 1.5 MG (TRANSDERM-SCOP) PATCH TOP SCH (20:00)
[2018-12-08] MEDS: SCOPOLAMINE PATCH REMOVAL TP SCH (20:00)
--- NOTE | 2018-12-08 22:06 | NUR ---
THIS NURSE WENT TO PATIENT ROOM AT 2019 AND NOTED THAT PATIENT WAS WITHOUT RESPIRATIONS. ADRIAN RN VERIFIED THAT PATIENT WAS WITHOUT RESPIRATIONS AND NO PERCEPTIBLE HEART BEAT. DR CARBONE NOTIFIED AND SHE THEN NOTIFIED PATIENT FAMILY. [facility] CALLED TO LET THIS NURSE KNOW THAT FAMILY HAD CHOSEN [facility] AND THAT FAMILY WANTED TO BE CONTACTED TOMORROW AM BY MORTUARY STAFF. PASTORAL CARE NOTIFIED OF . HOME STAFF ARRIVED AND BODY WAS RELEASED AT 2150.
== END 2018-12-08 20:20 | disposition expired | DRG 64 ==
LOC: EDUNIT# 14:35 → ER 14:36 → 4TH 17:53
PROVIDERS: ADMIT Family Medicine; ATTEND Family Medicine
DX: I63.312 Cerebral infarction due to thrombosis of left middle cerebral artery (principal); I63.032 Cerebral infarction due to thrombosis of left carotid artery; I48.20 Chronic atrial fibrillation, unspecified; Z51.5 Encounter for palliative care; Z66 Do not resuscitate; R29.810 Facial weakness; R47.01 Aphasia; Z87.891 Personal history of nicotine dependence; I10 Essential (primary) hypertension; E78.00 Pure hypercholesterolemia, unspecified; G89.29 Other chronic pain; M06.9 Rheumatoid arthritis, unspecified; M19.91 Primary osteoarthritis, unspecified site; M81.0 Age-related osteoporosis without current pathological fracture; G62.9 Polyneuropathy, unspecified; Z87.828 Personal history of other (healed) physical injury and trauma
CPT/HCPCS: 36415; 51702; 53620; 70450; 70496; 70498; 71045; 72125; 80053; 80061; 81000; 84484; 85007; 85027; 85379; 85610; 85730; 93005; 93041; 96361; 96374; 96375; 96376